=== PATIENT | female | born 1950 | race Caucasian/White ===

== ENCOUNTER 2023-05-17 12:12 | Outpatient (OUT) | payer MEDICARE, OTHER, SELFPAY ==
[2023-05-17 13:14] LABS: Anion Gap 16.3; BUN Creatinine Ratio 21.5; Calcium 9.5 mg/dL (8.5-10.1); Carbon Dioxide 27.3 mmol/L (21.0-32.0); Chloride 103 mmol/L (98-107); Estimated GFR (African America >60 (>=60); Estimated GFR (Non-African Ame 59 (>=60); Glucose 156 mg/dL (74-106); Potassium 4.6 mmol/L (3.5-5.1); Sodium 142 mmol/L (136-145)
== END 2023-05-17 12:13 | disposition home or self-care (01) ==
LOC: LAB 12:17
PROVIDERS: PCP Family Medicine
DX: I50.32 Chronic diastolic (congestive) heart failure (principal)
CPT/HCPCS: 36415; 80048

== ENCOUNTER 2023-12-20 09:52 | Outpatient (OUT) | payer MEDICARE, OTHER, SELFPAY ==
--- NOTE | 2023-12-20 10:48 | CA_ITS ---
Patient Name: TANIYA MCNEAL MR#: [id number] : 1950 Exam Date: 12/20/2023 Ordering Doctor: ZABRINA MESA ECHOCARDIOGRAM REPORT PROCEDURE: CA ECHO DOPPLER COMPLETE INDICATIONS: Edema bilateral lower extremities, dyspnea on exertion, hypertension, diabetes COMPARISON: None. DESCRIPTION: COMPLETE ECHOCARDIOGRAM Real-time transthoracic echocardiography with 2D, M-mode, spectral and color flow Doppler performed. QUALITY: Technical quality was good. 60 , 21-#. BSA 1.91 m2 LEFT VENTRICLE: Normal chamber size. Normal left ventricular wall thickness. LV EF: Global left ventricular systolic function is normal; visually estimated ejection fraction is 55 to 60%. No significant wall motion abnormalities. DIASTOLIC: Normal diastolic function. ATRIAL SEPTUM: Visually appears intact. LEFT ATRIUM: Normal chamber size. RIGHT ATRIUM: Normal chamber size. RIGHT VENTRICLE: Normal chamber size. Normal right ventricular systolic function. TRICUSPID VALVE: Normal mobility and thickness. No stenosis with trivial regurgitation. No evidence of pulmonary hypertension. RVSP 31 mmHg MITRAL VALVE: Normal mobility and thickness. No evidence of mitral valve stenosis. There is no mitral annular calcification. Trivial mitral regurgitation. AORTIC VALVE: Normal trileaflet appearance. No visible sclerosis. Normal leaflet mobility. No evidence of aortic valve stenosis. No aortic regurgitation. AORTIC ROOT: Normal diameter and appearance. PULMONIC VALVE: Normal thickness and mobility. No stenosis. Trivial regurgitation. PERICARDIUM: Anterior free space; trivial effusion versus fat pad. IVC: Collapses with inspirations. IVC is normal in size. CONCLUSION: 1. Global left ventricular systolic function is normal; visually estimated ejection fraction is 55 to 60% 2. Normal right ventricular size and systolic function 3. Normal diastolic function 4. The left atrium is normal size 5. No significant valvular abnormalities 6. Anterior free space; trivial effusion versus fat Adult Echocardiography Procedure Report Left Ventricle LVEDD (3.7 - 5.6 cm): 5.18 cm LVESD (2.2 - 4.0 cm): 3.39 cm LVIVS thickness (0.6 - 1.2 cm): 0.98 cm LVPW thickness (0.5 - 1.0 cm): 0.97 cm e': 0.09 m/s E - e': 9.19 LVOT Max Gradient: 2.79 mm[Hg] LVOT Area (cm2): 0.84 m/s Peak Velocity (LVOT): 0.84 m/s Mean Velocity (LVOT): 0.52 m/s LVOT Diameter 1.55 cm Left Atrium LA Volume Index (2D A2C): 32.99 ml/m2 Left Atrium Systolic Dimension: 4.29 cm Mitral Valve MV E to A Ratio: 1.05 Mitral Valve A-Wave Peak Velocity: 0.78 m/s Mitral Valve E-Wave Peak Velocity: 0.82 m/s Right Ventricle Aorta AO Root Diam: 2.39 cm Ascending Ao Diam: 2.95 cm Aortic Valve AoV Area (Peak Jeromy): 1.21 cm2, 1.21 cm2 AoV Area (VTI): 1.19 cm2, 1.19 cm2 Peak Velocity(Antegrade Flow): 1.30 m/s Peak Gradient(Antegrade Flow): 6.77 mm[Hg] Mean Velocity(Antegrade Flow): 0.85 m/s Mean Gradient(Antegrade Flow): 3.56 mm[Hg] Velocity Time Integral: 30.43 cm Tricuspid Valve Peak Velocity (Regurgitant Flow): 2.64 m/s Pulmonic Valve Mean Gradient: 3.22 mm[Hg] Mean Velocity: 0.84 m/s Peak Velocity: 1.28 m/s, 1.10 m/s Peak Gradient: 4.85 mm[Hg], 6.56 mm[Hg] Right Atrium Right Atrium Systolic Pressure: 46.71 ml, 46.71 ml Dictated by: Edel Negrete M.D. on 12/20/2023 at 11:54 Approved by: Edel Negrete M.D. on 12/20/2023 at 11:56
== END 2023-12-20 09:53 | disposition home or self-care (01) ==
LOC: CARD 09:53
PROVIDERS: PCP Family Medicine; Visit Provider Nurse Practitioner
DX: R60.0 Localized edema (principal); R06.09 Other forms of dyspnea
CPT/HCPCS: 93306

== ENCOUNTER 2023-12-30 08:57 | Outpatient (OUT) | payer MEDICARE, OTHER, SELFPAY ==
--- OUTSIDE RECORDS SUMMARY | 2023-12-30 09:20 | XMS_ITS | CCD ---
Author Name Unknown Address [address] [place] [address] Organization [facility] Care Team Providers Care Paper Tester Name Role Phone Furdesing, Wild G Unavailable Unavailable Lionel, Amish Unavailable Unavailable Furlong, DO Wild Primary Care Provider MD Bang Nunez Attending Provider Unavailable MD Mohan Mccartney Referring Provider Furlong, DO Wild Primary Care Provider MD Bang Nunez Attending Provider Unavailable MD Mhoan Mccartney Referring Provider Furlong, DO Wild Primary Care Provider MD Mohan Mccartney Referring Provider MD Rose Ohara Attending Provider [phone] ALGHOTHANI, MOHAMAD Admitting Unavailable ALGHOTHANI, MOHAMAD Consulting Unavailable ALGHOTHANI, MOHAMAD Attending Unavailable FURLONG, WILD G Primary Care Unavailable FURLONG, WILD G Attending Unavailable FURLONG, WILD G Admitting Unavailable FURLONG, WILD G Primary Care Unavailable FURLONG, WILD G Consulting Unavailable FURLONG, WILD G Attending Unavailable FURLONG, WILD G Admitting Unavailable FURLONG, WILD G Primary Care Unavailable FURLONG, WILD G Consulting Unavailable FURLONG, WILD G Attending Unavailable FURLONG, WILD G Admitting Unavailable FURLONG, WILD G Primary Care Unavailable FURLONG, WILD G Consulting Unavailable Furlong, DO Wild Primary Care Provider MD Mohan Mccartney Referring Provider MD Rose Ohara Attending Provider [phone] Furlong, DO Wild Primary Care Provider MD Mohan Mccartney Referring Provider MD Rose Ohara Attending Provider [phone] RONALDO, ALY E Referring Unavailable RONALDO, ALY E Admitting Unavailable RONALDO, ALY E Attending Unavailable VALENTINE PICKERING Consulting Unavailable FURLONG, WILD G Primary Care Unavailable Aly Higgins MD Attending Unavail able Furlong, DO Wild Primary Care Provider PARTH [facility] Attending Provider MD Mohan Mccartney Referring Provider MD Rose Ohara Attending Provider MD Mohan Mccartney Referring Provider [phone] MD Rose Ohara Attending Provider Unallocated, Noms Provider Primary Care Provider Furlong, Wild Primary Care Unavailable Mohan Mccartney Referring Unavailable Lev, Rose Attending Unavailable Lev, Rose Admitting Unavailable Furlong, Wild Primary Care Unavailable Bonita, Irma Attending Unavailable Bonita, Irma Admitting Unavailable Furlong DO, Wild G Primary Care Provider [phone] PERRY MANUEL Attending Unavailable BONITA, IRMA Attending Unavailable WITHERELLPERRY Attending Unavailable FURLONG, WILD G Attending Unavailable FURLONG, WILD G Referring Unavailable FURLONG, WILD G Primary Care Unavailable KELBLEY, IRMA Attending Unavailable RONALDO, ALY E Referring Unavailable KELBLEY, IRMA Attending Unavailable RONALDO, ALY E Referring Unavailable KELBLEY, IRMA Attending Unavailable RONALDO, ALY E Referring Unavailable KELBLEY, IRMA Attending Unavailable RONALDO, ALY E Referring Unavailable KELBLEY, IRMA Attending Unavailable RONALDO, ALY E Referring Unavailable KELBLEY, IRMA Attending Unavailable RONALDO, ALY E Referring Unavailable KELBLEY, IRMA Attending Unavailable RONALDO, ALY E Referring Unavailable KELBLEY, IRMA Attending Unavailable RONALDO, ALY E Referring Unavailable KELBLEY, IRMA Attending Unavailable RONALDO, ALY E Referring Unavailable KELBLEY, IRMA Attending Unavailable RONALDO, ALY E Referring Unavailable KELBLEY, IRMA Attending Unavailable RONALDO, ALY E Referring Unavailable KELBLEY, IRMA Attending Unavailable RONALDO, ALY E Referring Unavailable BLACKSTON, AMAN T Attending Unavailable RONALDO, ALY E Referring Unavailable BLACKSTON, AMAN T Attending Unavailable BRINKVIRGINIA Attending Unavailable RONALDO, ALY E Referring Unavailable BRINK, VIRGINIA Attending Unavailable RONALDO, ALY E Referring Unavailable KELBLEY, IRMA Attending Unavailable RONALDO, ALY E Referring Unavailable SHAN HASKINS Attending Unavailable KELBLEY, IRMA Attending Unavailable RONALDO, ALY E Referring Unavailable KELBLEY, IRMA Attending Unavailable RONALDO, ALY E Referring Unavailable Allergies Allergy Classification Reported Allergen(s) Allergy Type Date of Onset Reaction(s) Facility (1 source) No Alert Propensity to adverse reactions to drug 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 Medications Current Medications Medication Drug Class(es) Dates Sig (Normalized) Sig (Original) allopurinol 100 mg oral tablet (2 sources) Xanthine Oxidase Inhibitor Start: 12-23-2023 take 1 tablet by mouth in the morning allopurinoL (ZYLOPRIM) 100 mg tablet Take 1 tablet (100 mg total) by mouth in the morning. Start after flare up resolves. 30 tablet 2 12/23/2023 Active amLODIPine 5 mg oral tablet (10 sources) Dihydropyridine Calcium Channel Sophy Start: 12-26-2023 take 1 tablet by mouth once daily in the morning amLODIPine (NORVASC) 5 mg tablet take 1 tablet by mouth every morning 90 tablet 1 12/26/2023 Active Start: 04-11-2019 End: 12-26-2023 take 1 tablet by mouth once daily in the morning amLODIPine (NORVASC) 5 mg tablet take 1 tablet by mouth every morning 90 tablet 1 07/08/2023 12/26/2023 Discontinued aspirin 81 mg delayed release oral tablet (16 sources) Platelet Aggregation Inhibitor, Nonsteroidal Anti-inflammatory Drug Start: 10-01-2020 take 81 mg by mouth once daily Aspirin Active 81 MG PO Daily October 01, 2020 12:00am Start: 04-11-2019 End: 04-13-2019 take 81 mg by mouth once daily Aspirin Discontinued 81 MG PO Daily April 10, 2019 11:00pm April 13, 2019 12:11pm blood-glucose sensor (DEXCOM G7 SENSOR) device (2 sources) Start: 10-26-2023 blood-glucose sensor (DEXCOM G7 SENSOR) device Indications: 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 ([facility]-H[facility]) 1 Unit by miscellaneous route every 10 days. 3 each 5 10/26/2023 Active carvedilol 25 mg oral tablet (9 sources) alpha-Adrenergi c Sophy, beta-Adrenergic Sophy Start: 04-11-2019 take 1 tablet by mouth twice daily carvediloL (COREG) 25 mg tablet Indications: 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 (CMS-HCC) take 1 tablet by mouth twice a day 180 tablet 3 06/01/2023 Active colchicine 0.6 mg oral tablet (2 sources) Start: 12-23-2023 End: 12-27-2023 take 1 tablet by mouth in the morning, then take 1 tablet by mouth at bedtime colchicine (COLCRYS) 0.6 mg tablet Indications: Acute gout due to renal impairment involving toe of right foot Take 1 tablet (0.6 mg total) by mouth in the morning and 1 tablet (0.6 mg total) before bedtime. Do all this for 4 days. 8 tablet 0 12/23/2023 12/27/2023 Active furosemide 20 mg oral tablet (16 sources) Loop Diuretic Start: 12-16-2023 take 1 tablet by mouth once daily furosemide (LASIX) 20 mg tablet take 1 tablet by mouth once daily 0 12/16/2023 Active Start: 01-11-2022 take 1 tablet by montrell th once daily Furosemide (Lasix) 40 mg Tablet Active 40 MG PO Daily January 11, 2022 12:00am Start: 12-30-2021 End: 01-11-2022 take 1 tablet by mouth once daily Furosemide (Lasix) 20 mg Tablet Discontinued 20 MG PO Daily December 30, 2021 12:00am January 11, 2022 1:27pm 3 ml insulin aspart, human 100 unt/ml pen injector (2 sources) Insulin Analog Start: 07-13-2023 insulin aspart U-100 (NovoLOG FlexPen U-100 Insulin) 100 unit/mL (3 mL) insulin pen Inject 6 Units under the skin in the morning and 6 Units at noon and 6 Units in the evening. Inject with meals. 15 mL 1 07/13/2023 Active lisinopril 40 mg oral tablet (9 sources) Angiotensin Converting Enzyme Inhibitor Start: 04-11-2019 take 1 tablet by mouth once daily lisinopriL (PRINIVIL,ZESTRIL) 40 mg tablet take 1 tablet by mouth once daily 90 tablet 1 07/08/2023 Active magnesium oxide 400 mg oral tablet (2 sources) magnesium oxide 400 mg magnesium tablet Magnesium 0 Active metFORMIN hydrochloride 1000 mg oral tablet (9 sources) Biguanide Start: 04-11-2019 take 1 tablet by mouth twice daily at mealtime metFORMIN (GLUCOPHAGE) 1000 mg tablet take 1 tablet by mouth twice a day with food 180 tablet 3 07/18/2023 Active potassium chloride 20 meq extended release oral tablet (7 sources) Start: 04-11-2019 take 20 mEq by mouth once daily Potassium Chloride Active 20 MEQ PO Daily April 10, 2019 11:00pm rosuvastatin calcium 10 mg oral tablet (9 sources) HMG-CoA Reductase Inhibitor Start: 04-11-2019 take 1 tablet by mouth once daily rosuvastatin (CRESTOR) 10 mg tablet take 1 tablet by mouth once daily 90 tablet 1 08/30/2023 Active spironolactone 25 mg oral tablet (9 sources) Aldosterone Antagonist Start: 12-30-2021 take 1 tablet by mouth once daily in the morning spironolactone (ALDACTONE) 25 mg tablet take 1 tablet by mouth every morning 30 tablet 5 08/06/2023 Active Vit C-E-Zinc Rea-Ywcvod-Ymeisn ([facility]) 50 mg-15 unit- 4.5 mg-2.5 mg Tablet,Chewable (7 sources) Start: 04-11-2019 take 1 tablet by mouth once daily Vit C-E-Zinc Tbq-Ktethz-Uitjou ([facility]) 50 mg-15 unit- 4.5 mg-2.5 mg Tablet,Chewable Active 1 TAB PO Daily April 11, 2019 8:39am Start: 04-11-2019 take 1 tablet by montrell once daily Vit C-E-Zinc Out-Qsikkb-Kvdkjo ([facility]) 50 mg-15 unit- 4.5 mg-2.5 mg Tablet,Chewable Active 1 TAB PO Daily April 10, 2019 11:00pm Start: 04-11-2019 take 1 tablet by montrell th once daily Vit C-E-Zinc Lwb-Jfzqtt-Pvanrl ([facility]) 50 mg-15 unit- 4.5 mg-2.5 mg Tablet,Chewable Active 1 TAB PO Daily April 11, 2019 12:00am (1 source) Completed/Discontinued Medications Medication Drug Class(es) Dates Sig (Normalized) Sig (Original) alendronic acid 35 mg oral tablet (9 sources) Bisphosphonate Start: 04-11-20 End: 12-15-19 take 35 mg by mouth every week Alendronate Discontinued 35 MG PO every week April 10, 2019 11:00pm December 15, 2023 10:19am amoxicillin 500 mg oral capsule (7 sources) Penicillin-class Antibacterial Start: 04-11-20 End: 04-13-20 take 500 mg by mouth three times daily Amoxicillin Discontinued 500 MG PO Three times daily April 10, 2019 11:00pm April 13, 2019 10:01am baclofen 10 mg oral tablet (1 source) gamma-Aminobutyri c Acid-ergic Agonist Start: 04-15-20 23 End: 12-23-19 24 take 1 tablet by mouth three times daily as needed for muscle spasms baclofen (LIORESAL) 10 mg tablet Indications: Strain of left buttock, initial encounter Take 1 tablet (10 mg total) by mouth 3 (three) times a day as needed for muscle spasms. 60 tablet 0 04/15/2023 12/23/2023 Discontinued (Therapy completed) dapagliflozin 5 mg oral tablet (7 sources) Sodium-Glucose Cotransporter 2 Inhibitor Start: 03-31-20 22 End: 04-13-20 23 take 1 tablet by mouth once daily Dapagliflozin Propanediol (Farxiga) 5 mg Tablet Discontinued 5 MG PO Daily March 30, 2022 11:00pm April 13, 2023 8:17am 0.5 ml dulaglutide 3 mg/ml auto-injector (7 sources) GLP-1 Receptor Agonist Start: 04-11-20 End: 12-15-19 inject 0.75 mg by subcutaneous injection every week Dulaglutide Discontinued 0.75 MG SUBCUT every week April 10, 2019 11:00pm December 15, 2023 10:19am empagliflozin 25 mg oral tablet (7 sources) Sodium-Glucose Cotransporter 2 Inhibitor Start: 10-01-20 End: 03-31-20 take 1 tablet by mouth once daily Empagliflozin (Jardiance) 25 mg Tablet Discontinued 25 MG PO Daily October 01, 2020 12:00am March 31, 2022 12:23pm hydroCHLOROthiazide 25 mg oral tablet (7 sources) Thiazide Diuretic Start: 04-11-20 End: 04-13-20 take 25 mg by mouth once daily Hydrochlorothiazide Discontinued 25 MG PO Daily April 10, 2019 11:00pm April 13, 2023 8:18am 3 ml insulin detemir 100 unt/ml pen injector (7 sources) Insulin Analog Start: 04-11-20 End: 03-31-20 inject 70 [IU] by subcutaneous injection once daily at bedtime Insulin Detemir U-100 Discontinued 70 UNITS SUBCUT Daily at bedtime April 10, 2019 11:00pm March 31, 2022 12:23pm 3 ml insulin glargine 300 unt/ml pen injector (1 source) Insulin Analog Start: 04-15-20 End: 12-23-19 insulin glargine U-300 conc (TOUJEO MAX U-300 SOLOSTAR) 300 unit/mL (3 mL) insulin pen Inject 60 Units under the skin in the evening. 6 mL 2 04/15/2023 12/23/2023 Discontinued (Cost of medication) meloxicam 7.5 mg oral tablet (7 sources) Nonsteroidal Anti-inflammatory Drug Start: 03-23-20 End: 07-01-20 Meloxicam Discontinued 7.5 PO Daily March 22, 2021 11:00pm July 01, 2022 9:30am Problems Active Problems Problem Classification Problem Date Documented Date Episodic/Chronic Chronic kidney disease (1 source) Chronic kidney disease, stage 2 (mild); Translations: [CHRONIC KIDNEY DISEASE STAGE 2 MILD] Onset: 03-07-20 Chronic Chronic kidney disease (3 sources) Chronic kidney disease; Translations: [Hypertensive chronic kidney disease with stage 1 through stage 4 chronic kidney disease, or unspecified chronic kidney disease] Onset: 05-17-20 Complications of surgical procedures or medical care (2 sources) Dehiscence of surgical wound; Translations: [Disruption of external operation (surgical) wound, not elsewhere classified, initial encounter] Onset: 12-23-19 24 12-23-2023 Episodic Congestive heart failure; nonhypertensive (2 sources) Chronic diastolic (congestive) heart failure; Translations: [Chronic diastolic (congestive) heart failure] Onset: 08-29-20 Chronic Diabetes mellitus with complications (9 sources) Type 2 diabetes mellitus with diabetic chronic kidney disease; Translations: [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 3 due to type 2 diabetes mellitus] Onset: 08-26-20 Chronic Diabetes mellitus without complication (17 sources) Diabetes mellitus; Translations: [Type 2 diabetes mellitus without complications] Onset: 03-04-20 16 02-09-2021 Chronic Disorders of lipid metabolism (11 sources) Mixed hyperlipidemia; Translations: [Mixed hyperlipidemia] Onset: 12-25-19 Chronic Essential hypertension (5 sources) Essential (primary) hypertension; Translations: [Essential hypertension] Onset: 08-05-20 22 08-05-2022 Chronic Gout and other crystal arthropathies (2 sources) 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; Translations: [Gout due to renal impairment, right ankle and foot] Onset: 12-23-19 24 12-23-2023 Chronic Hypertension with complications and secondary hypertension (7 sources) Hypertensive chronic kidney disease with stage 1 through stage 4 chronic kidney disease, or unspecified chronic kidney disease; Translations: [Chronic kidney disease stage 2] Onset: 02-17-20 Resolved : 03-14-20 23 03-14-2023 Chronic Maintenance chemotherapy; radiotherapy (17 sources) Patient encounter status; Translations: [Encounter for antineoplastic immunotherapy] 02-09-2021 Chronic Melanomas of skin (19 sources) Malignant melanoma of upper arm; Translations: [Malignant melanoma] Onset: 08-21-20 20 02-09-2021 Chronic Osteoarthritis (9 sources) Osteoarthritis of left knee joint; Translations: [Unilateral primary osteoarthritis, left knee] Onset: 10-24-20 17 12-14-2023 Chronic Other and ill-defined heart disease (1 source) Heart disease, unspecified; Translations: [HEART DISEASE UNSPECIFIED] Onset: 05-04-20 Chronic Other circulatory disease (1 source) H/O: hypertension; Translations: [History of hypertension] Episodic Other connective tissue disease (1 source) Presence of left artificial knee joint; Translations: [Presence of left artificial knee joint] Onset: 10-03-20 Chronic Other connective tissue disease (2 sources) History of total knee arthroplasty; Translations: [Presence of left artificial knee joint] Onset: 10-03-20 23 12-23-2023 Chronic Other connective tissue disease (1 source) H/O: arthritis; Translations: [History of arthritis] Episodic Other connective tissue disease (1 source) H/O: gout; Translations: [History of gout] Episodic Other connective tissue disease (1 source) History of osteoporosis; Translations: [History of osteoporosis] Episodic Other endocrine disorders (7 sources) Pituitary gland enlarged; Translations: [Other disorders of pituitary gland] 03-23-2021 Chronic Other endocrine disorders (8 sources) Other disorders of pituitary gland; Translations: [Other disorders of the pituitary and other syndromes of diencephalohypophyseal origin] Chronic Other gastrointestinal disorders (2 sources) Irritable bowel syndrome; Translations: [Irritable bowel syndrome without diarrhea] Onset: 02-04-20 17 08-05-2022 Chronic Other liver diseases (2 sources) Fatty (change of) liver, not elsewhere classified; Translations: [Other chronic nonalcoholic liver disease] Onset: 02-17-20 22 08-05-2022 Chronic Other lower respiratory disease (2 sources) Other forms of dyspnea; Translations: [Other forms of dyspnea] Onset: 12-02-19 Episodic Other non-traumatic joint disorders (3 sources) Pain in left knee; Translations: [Pain in joint, lower leg] 12-14-2023 Episodic Other non-traumatic joint disorders (3 sources) Stiffness of left knee; Translations: [Stiffness of left knee, not elsewhere classified] 12-14-2023 Episodic Other nutritional; endocrine; and metabolic disorders (2 sources) Metabolic syndrome X; Translations: [Metabolic syndrome X] Onset: 08-05-20 22 08-05-2022 Chronic Other nutritional; endocrine; and metabolic disorders (2 sources) Morbid obesity; Translations: [Morbid (severe) obesity due to excess calories] Onset: 04-08-20 22 08-05-2022 Chronic Other nutritional; endocrine; and metabolic disorders (1 source) H/O: diabetes mellitus; Translations: [History of diabetes mellitus] Episodic Other nutritional; endocrine; and metabolic disorders (1 source) History of hypercholesterolemia; Translations: [History of hypercholesterolemia] Episodic Other screening for suspected conditions (not mental disorders or infectious disease) (1 source) No current problems or disability Onset: 12-16-19 Residual codes; unclassified (2 sources) Localized edema; Translations: [Localized edema] Onset: 12-02-19 Episodic Spondylosis; intervertebral disc disorders; other back problems (2 sources) Degeneration of thoracic intervertebral disc; Translations: [Other intervertebral disc degeneration, thoracic region] Onset: 02-04-20 17 08-05-2022 Chronic Unclassified (1 source) Malignant melanoma of right upper limb, including shoulder; Translations: [Malignant melanoma of right upper limb, including shoulder] Onset: 12-15-19 Unclassified (1 source) gout in big toe Onset: 12-23-19 Past or Other Problems Problem Classification Problem Date Documented Da te Episodic/Chronic Fluid and electrolyte disorders (4 sources) Hypokalemia; Translations: [Hypokalemia] Onset: 02-03-2017 Resolved: 03-14-2023 03-14-2023 Episodic Mood disorders (2 sources) Mood disorders Onset: 12-23-2023 12-23-2023 Other aftercare (1 source) 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; Translations: [GROUP HOME CURRENT USE OF INSULIN] Onset: 08-29-2022 Episodic Other and ill-defined heart disease (2 sources) Diastolic dysfunction; Translations: [Other ill-defined heart diseases] Onset: 12-02-2021 Resolved: 12-23-2023 12-23-2023 Chronic Other gastrointestinal disorders (4 sources) Diarrhea, unspecified; Translations: [DIARRHEA UNSPECIFIED] Onset: 08-11-2022 Episodic Other lower respiratory disease (4 sources) Dyspnea, unspecified; Translations: [DYSPNEA UNSPECIFIED] Onset: 04-29-2022 Episodic Other lower respiratory disease (2 sources) Dyspnea on exertion; Translations: [Other forms of dyspnea] Onset: 12-25-2021 Resolved: 12-23-2023 12-23-2023 Episodic Other non-traumatic joint disorders (2 sources) Pain in wrist; Translations: [Pain in unspecified wrist] Onset: 09-06-2022 Resolved: 04-15-2023 04-15-2023 Episodic Pancreatic disorders (not diabetes) (2 sources) Pancreatitis; Translations: [Acute pancreatitis without necrosis or infection, unspecified] Onset: 08-05-2022 Resolved: 09-06-2022 09-06-2022 Episodic Skull and face fractures (2 sources) Fracture of orbital floor; Translations: [Fracture of orbital floor, unspecified side, initial encounter for closed fracture] Onset: 04-03-2019 Resolved: 08-10-2022 08-10-2022 Episodic Results Test Name Value Interpretation Reference Range Facility 36on 12-22-2023 36 ELIZABETH Campos MA Please let her know her Echo looks very good- better than the one in 2021. Normal EF- LV function, no diastolic dysfunction, no significant valve issues. Very good. Regarding echo performed on 12/20/2023 Patient informed. She verbalized understanding. Normal [facility] Alanine aminotransferase [En zymatic activity/volume] in Serum or PlasmaOrdered By: Farhana Sotomayor on 12-13-2023 ALT [Catalytic activity/Vol] 12 U/L 7-52 [facility] Albumin [Mass/volume] in Ser um or Plasma by Bromocresol green (BCG) dye binding methoOrdered By: Farhana Sotomayor on 12-13-2023 Albumin BCG dye [Mass/Vol] 4.0 g/dL 3.5-5.7 [facility] Alkaline phosphatase [Enzyma tic activity/volume] in Serum or PlasmaOrdered By: Farhana Sotomayor on 12-13-2023 ALP [Catalytic activity/Vol] 55 U/L 34-104 [facility] Aspartate aminotransferase [ Enzymatic activity/volume] in Serum or PlasmaOrdered By: Farhana Sotomayor on 12-13-2023 AST [Catalytic activity/Vol] 11 U/L 13-39 [facility] B-Type Natriuretic Peptideon 12-13-2023 Natriuretic peptide B (Bld) [Mass/Vol] 70.0 pg/mL Normal 5-100 [facility] Comment on above: Order Comment: Kaylee ya order for this patient for CBC and CMP ordered under [facility]. please forward a copy of report to [facility] patient fasting 12 hrs Result Comment: PERF ORMED BY: [place] [address] PATHOLOGIST TENT WORKER SHEBA RICO M.D. Performed By: #### M G, BNP #### [address] Basophils Auto (Bld) [#/Vol] Ordered By: Farhana Sotomayor on 12-13-2023 Basophils (Bld) [#/Vol] 0.1 10*3/uL 0.0-0.2 [facility] Basophils/100 WBC Auto (Bld) Ordered By: Farhana Sotomayor on 12-13-2023 Basophils/100 WBC (Bld) 1.2 % . [facility] Bilirubin.total [Mass/volume ] in Serum or PlasmaOrdered By: Farhana Sotomayor on 12-13-2023 Bilirubin [Mass/Vol] 0.8 mg/dL 0.3-1.[address] [facility] [address] abdomen pelvis w conon CT abdomen pelvis w con [facility] [place] [address] CT Scan Report Signed Patient: Tosha Mcneal MR#: [id number] : 1950 Acct:[id number] Age/Sex: 73 / F ADM Date: 12/13/23 Loc: Room: Type: [facility] Attending Dr: Rose Ohara MD Copies to: MD Farhana Gutierrez, VINCE Ordering Provider: Farhana Sotomayor APRN Date of Service: 12/13/23 CT/CT abdomen pelvis w con: surveillance melanoma ([id number]) CT/CT chest w con: surveillance melanoma CT Chest, Abdomen and Pelvis with contrast TECHNIQUE: Axial imaging with 2-D reconstruction. 90 cc of Isovue-300The CT exam was performed using one or more the following dose reduction techniques: Automated exposure control, adjustment of the MA and/or Kv according to patient size, or use of the iterative reconstruction technique. History: Yearly assessment for melanoma. COMPARISON: 12/21/2022 THYROID: No significant thyroid abnormality identified. AIRWAY: Central airway is patent. ESOPHAGUS: Esophagus normal course and caliber. HEART: Heart is not enlarged. PERICARDIAL EFFUSION: Minimal CORONARY ARTERY CALCIFICATION: Extensive atherosclerosis MEDIASTINUM: Nonenlarged mediastinal lymph nodes identified. HILAR REGION: No hilar mass or adenopathy is seen. THORACIC AORTA: No thoracic aortic aneurysm or dissection. No atherosclerosis LUNG INTERSTITIUM: No infiltrate or congestion identified. Mild atelectasis/scarring. PLEURAL EFFUSION No pleural effusion identified. PNEUMOTHORAX: No pneumothorax seen. LUNG NODULE: No lung nodules identified. CHEST WALL: No chest wall abnormality seen. The bony chest intact. LIVER: No hepatic mass or intrahepatic biliary ductal dilatation is identified. Normal density of the liver parenchyma identified. GALLBLADDER: No gallbladder abnormalities identified. BILE DUCTS: No biliary duct dilatation identified. SPLEEN: Normal PANCREAS: Unremarkable ADRENAL GLANDS: The adrenal glands are unremarkable. KIDNEYS: Unremarkable ABDOMINAL AORTA: The abdominal aorta is normal. RETROPERITONEUM: No significant retroperitoneal abnormalities identified. STOMACH:Nondistended SMALL BOWEL: The small bowel loops are nondistended. Duodenal diverticulum redemonstrated. APPENDIX: The appendix is normal. COLON: There is no colitis or diverticulitis. Sigmoid diverticulosis. URINARY BLADDER: Urinary bladder is unremarkable. REPRODUCTIVE STRUCTURES: Similar partially calcified fibroid uterus. FREE AIR: None FREE FLUID: None ABDOMINAL WALL: The bony structures are unremarkable. No subcutaneous soft tissue abnormality identified. INGUINAL HERNIA: None BONES:A similar degenerative change. Mild scoliosis. CT/CT chest w con IMPRESSION: No evidence of metastatic disease of the chest, abdomen or pelvis. PRELIMINARY RESULTS: None given Impression dictated by: Omid Echevarria M.D.12/13/2023 2:39 PM Dictation Location: [place] [address] Transcribed By: [facility] 12/13/23 1439 Dictated By: Omid Echevarria DO 12/13/23 1430 Signed By: 12/13/23 1439 Normal [facility] Calcium [Mass/volume] in Ser um or PlasmaOrdered By: Farhana Sotomayor on 12-13-2023 Calcium [Mass/Vol] 9.3 mg/dL 8.6-10.3 [facility] Carbon dioxide, total [Moles /volume] in Serum or PlasmaOrdered By: Farhana Sotomayor on 12-13-2023 CO2 [Moles/Vol] 26.9 mmol/L 21.0-31.0 [facility] Chloride [Moles/volume] in S marlena or PlasmaOrdered By: Farhana Sotomayor on 12-13-2023 Chloride [Moles/Vol] 103 mmol/L 98-107 [facility] Complete Blood Count Auto Di ffon 12-13-2023 Basophils (Bld) [#/Vol] 0.1 10*3/uL Normal 0.0-0.2 [facility] Comment on above: Result Comment: PERF ORMED BY: [place] [address] PATHOLOGIST TENT WORKER SHEBA RICO M.D. Performed By: #### C BC #### [address] Basophils/100 WBC (Bld) 1.2 % Normal . [facility] Comment on above: Performed By: #### C BC #### [address] Eosinophils (Bld) [#/Vol] 0.2 10*3/uL Normal 0.0-0.45 [facility] Comment on above: Performed By: #### C BC #### [address] Eosinophils/100 WBC (Bld) 2.4 % Normal . [facility] Comment on above: Performed By: #### C BC #### [address] Erythrocyte distribution width (RBC) [Ratio] 16.0 % High 11.9-15.3 [facility] Comment on above: Performed By: #### C BC #### [address] Hematocrit (Bld) [Volume fraction] 35.5 % Normal 34.0-46.4 [facility] Comment on above: Performed By: #### C BC #### [address] Hemoglobin (Bld) [Mass/Vol] 11.5 g/dL Low 11.8-15.4 [facility] Comment on above: Performed By: #### C BC #### [facility] [address] [place] [address] [place] Lymphocytes (Bld) [#/Vol] 1.9 10*3/uL Normal 1.00-4.8 [facility] Comment on above: Performed By: #### C BC #### [facility] [address] Lymphocytes/100 WBC (Bld) 25.0 % Normal . [facility] Comment on above: Performed By: #### C BC #### [facility] [address] MCH (RBC) [Entitic mass] 28.3 pg Normal 24.7-34.3 [facility] Comment on above: Performed By: #### C BC #### [address] MCV (RBC) [Entitic vol] 87.2 fL Normal 80-100 [facility] Comment on above: Performed By: #### C BC #### [address] Mean Corpuscular HGB Conc 32.5 g/dL Normal 32.0-35.0 [facility] Comment on above: Performed By: #### C BC #### [address] Monocytes (Bld) [#/Vol] 0.6 10*3/uL Normal 0.0-0.8 [facility] Comment on above: Performed By: #### C BC #### [address] Monocytes/100 WBC (Bld) 8.3 % Normal . [facility] Comment on above: Performed By: #### C BC #### [address] Neutrophils (Bld) [#/Vol] 4.8 10*3/uL Normal 1.8-7.7 [facility] Comment on above: Performed By: #### C BC #### [address] Neutrophils/100 WBC (Bld) 63.1 % Normal . [facility] Comment on above: Performed By: #### C BC #### [facility] [address] NRBC% 0.0 /100{WBC} Normal 0-0.5 [facility] Comment on above: Performed By: #### C BC #### [address] Platelet mean volume (Bld) [Entitic vol] 7.5 fL Normal 6.3-10.7 [facility] Comment on above: Performed By: #### C BC #### [address] Platelets (Bld) [#/Vol] 220 10*3/uL Normal 150-450 [facility] Comment on above: Performed By: #### C BC #### [address] RBC (Bld) [#/Vol] 4.07 10*6/uL Normal 3.60-5.00 [facility] Comment on above: Performed By: #### C BC #### [address] WBC (Bld) [#/Vol] 7.6 10*3/uL Normal 3.8-11.6 [facility] Comment on above: Performed By: #### C BC #### [address] Comprehensive Metabolic Pane [place] 12-13-2023 Albumin [Mass/Vol] 4.0 g/dL Normal 3.5-5.7 [facility] Comment on above: Order Comment: stat for CT Bun/creat patient has a duplicate for CMP and cbc for Irma Mesa please send copy of report to her also. orders scanned in under Acct. [id number] Patient fasting since 0830 pm 0n 12/12/23 Performed By: #### C MP, LDH #### [address] [place] [address] [facility] Albumin/Globulin [Mass ratio] 1.5 {ratio} Normal [facility] Comment on above: Order Comment: stat for CT Bun/creat patient has a duplicate for CMP and cbc for Irma Blackburns please send copy of report to her also. orders scanned in under Acct. [id number] Patient fasting since 0830 pm 0n 12/12/23 Performed By: #### C MP, LDH #### [facility] [address] [place] [id number] [facility] ALP [Catalytic activity/Vol] 55 U/L Normal 34-104 [facility] Comment on above: Order Comment: stat for CT Bun/creat patient has a duplicate for CMP and cbc for Irma Blackburns please send copy of report to her also. orders scanned in under Acct. [id number] Patient fasting since 0830 pm 0n 12/12/23 Performed By: #### C MP, LDH #### [facility] [address] [place] [id number] [facility] ALT [Catalytic activity/Vol] 12 U/L Normal 7-52 [facility] Comment on above: Order Comment: stat for CT Bun/creat patient has a duplicate for CMP and cbc for Irma Blackburns please send copy of report to her also. orders scanned in under Acct. [id number] Patient fasting since 0830 pm 0n 12/12/23 Performed By: #### C MP, LDH #### [place] [id number] [facility] Anion gap [Moles/Vol] 14.4 mmol/L Normal 6.0-15.0 [facility] Comment on above: Order Comment: stat for CT Bun/creat patient has a duplicate for CMP and cbc for Irma Blackburns please send copy of report to her also. orders scanned in under Acct. [id number] Patient fasting since 0830 pm 0n 24 Performed By: #### C MP, LDH #### [facility] [address] [place] [address] [facility] AST [Catalytic activity/Vol] 11 U/L Low 13-39 [facility] Comment on above: Order Comment: stat for CT Bun/creat patient has a duplicate for CMP and cbc for Irma Bonita please send copy of report to her also. orders scanned in under Acct. [id number] Patient fasting since 0830 pm 0n 12/12/23 Performed By: #### C MP, LDH #### [facility] [address] [place] [address] [facility] Bilirubin [Mass/Vol] 0.8 mg/dL Normal 0.3-1.0 [facility] Comment on above: Order Comment: stat for CT Bun/creat patient has a duplicate for CMP and cbc for Irma Bonita please send copy of report to her also. orders scanned in under Acct. [id number] Patient fasting since 0830 pm 0n 12/12/23 Performed By: #### C MP, LDH #### [facility] [address] [place] [address] [place] Calcium [Mass/Vol] 9.3 mg/dL Normal 8.6-10.3 [facility] Comment on above: Order Comment: stat for CT Bun/creat patient has a duplicate for CMP and cbc for Irma Bonita please send copy of report to her also. orders scanned in under Acct. [id number] Patient fasting since 0830 pm 0n 12/12/23 Performed By: #### C MP, LDH #### [facility] [address] [place] [address] [place] Chloride [Moles/Vol] 103 mmol/L Normal 98-107 [facility] Comment on above: Order Comment: stat for CT Bun/creat patient has a duplicate for CMP and cbc for Irma Bonita please send copy of report to her also. orders scanned in under Acct. [id number] Patient fasting since 0830 pm 0n 12/12/23 Performed By: #### C MP, LDH #### [facility] [address] [place] [address] [place] CO2 [Moles/Vol] 26.9 mmol/L Normal 21.0-31.0 [facility] Comment on above: Order Comment: stat for CT Bun/creat patient has a duplicate for CMP and cbc for Irma Bonita please send copy of report to her also. orders scanned in under Acct. [id number] Patient fasting since 0830 pm 0n 12/12/23 Performed By: #### C MP, LDH #### [facility] [address] [place] [id number] [facility] Creatinine [Mass/Vol] 1.05 mg/dL Normal 0.60-1.20 [facility] Comment on above: Order Comment: stat for CT Bun/creat patient has a duplicate for CMP and cbc for Irma Blackburns please send copy of report to her also. orders scanned in under Acct. [id number] Patient fasting since 0830 pm 0n 12/12/23 Performed By: #### C MP, LDH #### [facility] [address] [place] [address] Creatinine Clr Calc Pharmacy 51.93 [facility] Comment on above: Order Comment: stat for CT Bun/creat patient has a duplicate for CMP and cbc for Irma Blackburns please send copy of report to her also. orders scanned in under Acct. [id number] Patient fasting since 0830 pm 0n 12/12/23 Performed By: #### C MP, LDH #### [facility] [address] [place] [id number] [facility] GFR/1.73 sq M.predicted MDRD (S/P/Bld) [Vol rate/Area] 55.755 mL/min/{1.73_m2} [facility] Comment on above: Order Comment: stat for CT Bun/creat patient has a duplicate for CMP and cbc for Irma Blackburns please send copy of report to her also. orders scanned in under Acct. [id number] Patient fasting since 0830 pm 0n 12/12/23 Performed By: #### C MP, LDH #### [facility] [address] [place] [id number] [facility] Globulin (S) [Mass/Vol] 2.7 g/dL [facility] Comment on above: Order Comment: stat for CT Bun/creat patient has a duplicate for CMP and cbc for Irma Blackburns please send copy of report to her also. orders scanned in under Acct. [id number] Patient fasting since 0830 pm 0n 12/12/23 Performed By: #### C MP, LDH #### [facility] [address] [place] [phone] [facility] Glucose [Mass/Vol] 135 mg/dL High 70-100 [facility] Comment on above: Order Comment: stat for CT Bun/creat patient has a duplicate for CMP and cbc for Irma Bonita please send copy of report to her also. orders scanned in under Acct. [id number] Patient fasting since 0830 pm 0n 12/12/23 Result Comment: [place] Glucose Reference Range is dependent on time and content of last meal. Glucose of more than 200 mg/dL in a nonstressed, ambulatory subject supports the diagnosis of Diabetes Mellitus. ADA recommended reference range Performed By: #### C MP, LDH #### [facility] [address] [place] [phone] [place] Potassium [Moles/Vol] 5.3 mmol/L High 3.5-5.1 [facility] Comment on above: Order Comment: stat for CT Bun/creat patient has a duplicate for CMP and cbc for Irma Bonita please send copy of report to her also. orders scanned in under Acct. [id number] Patient fasting since 0830 pm 0n 12/12/23 Performed By: #### C MP, LDH #### [facility] [address] [place] [id number] [facility] Protein [Mass/Vol] 6.7 g/dL Normal 6.4-8.9 [facility] Comment on above: Order Comment: stat for CT Bun/creat patient has a duplicate for CMP and cbc for Irma Bonita please send copy of report to her also. orders scanned in under Acct. [id number] Patient fasting since 0830 pm 0n 12/12/23 Performed By: #### C MP, LDH #### [facility] [address] [place] [phone] [place] Sodium [Moles/Vol] 139 mmol/L Normal 136-145 [facility] Comment on above: Order Comment: stat for CT Bun/creat patient has a duplicate for CMP and cbc for Irma Bonita please send copy of report to her also. orders scanned in under Acct. [id number] Patient fasting since 0830 pm 0n 12/12/23 Performed By: #### C MP, LDH #### [facility] [address] [place] [phone] [place] Urea nitrogen [Mass/Vol] 27 mg/dL High 7-25 [facility] Comment on above: Order Comment: stat for CT Bun/creat patient has a duplicate for CMP and cbc for Irma Mesa please send copy of report to her also. orders scanned in under Acct. [id number] Patient fasting since 0830 pm 0n 12/12/23 Performed By: #### C MP, LDH #### [facility] [address] [place] [id number] [facility] Creatinine [Mass/volume] in Serum or PlasmaOrdered By: Farhana Sotomayor on 12-13-2023 Creatinine [Mass/Vol] 1.05 mg/dL 0.60-1.20 [facility] Eosinophils Auto (Bld) [#/Vo l]Ordered By: Farhana Sotomayor on 12-13-2023 Eosinophils (Bld) [#/Vol] 0.2 10*3/uL 0.0-0.45 [facility] Eosinophils/100 WBC Auto (Bl d)Ordered By: Farhana Sotomayor on 12-13-2023 Eosinophils/100 WBC (Bld) 2.4 % . [facility] Erythrocyte distribution wid th Auto (RBC) [Ratio]Ordered By: Farhana Sotomayor on 12-13-2023 Erythrocyte distribution width (RBC) [Ratio] 16.0 % 11.9-15.3 [facility] Globulin Calc (S) [Mass/Vol] Ordered By: Farhana Sotomayor on 12-13-2023 Globulin (S) [Mass/Vol] 2.7 g/dL [facility] Glucose [Mass/volume] in Ser um or PlasmaOrdered By: Farhana Sotomayor on 12-13-2023 Glucose [Mass/Vol] 135 mg/dL 70-100 [facility] Comment on above: ADA recommended refe rence rangeRandom Glucose Reference Range is dependent on time and content of last meal. Glucose of more than 200 mg/dL in a nonstressed, ambulatory subject supports the diagnosis of Diabetes Mellitus. Hematocrit Auto (Bld) [Volum e fraction]Ordered By: Farhana Sotomayor on 12-13-2023 Hematocrit (Bld) [Volume fraction] 35.5 % 34.0-46.4 [facility] Hemoglobin [Mass/volume] in BloodOrdered By: Farhana Sotomayor on 12-13-2023 Hemoglobin (Bld) [Mass/Vol] 11.5 g/dL 11.8-15.4 [facility] LDH Lactate Dehydrogenaseon 12-13-2023 LDH Lactate Dehydrogenase 118 U/L Low 140-271 [facility] Comment on above: Order Comment: stat for CT Bun/creat patient has a duplicate for CMP and cbc for Irma Mesa please send copy of report to her also. orders scanned in under Acct. [id number] Patient fasting since 0830 pm 0n 12/12/23 Result Comment: PERF ORMED BY: [facility] [address] [place] [address] PATHOLOGIST TENT WORKER SHEBA RICO M.D. Performed By: #### C MP, LDH ####[facility] [address] [place] [address] [facility] Lactate dehydrogenase [Enzym atic activity/volume] in Serum or Plasma by Lactate to pyOrdered By: Farhana Sotomayor on 12-13-2023 LDH Lactate to pyruvate reaction [Catalytic activity/Vol] 118 U/L 140-271 [facility] Leukocytes [#/volume] correc jin for nucleated erythrocytes in Blood by Automated counOrdered By: Farhana Sotomayor on 12-13-2023 WBC corrected for nucl RBC Auto (Bld) [#/Vol] 7.6 10*3/uL 3.8-11.6 [facility] Lymphocytes Auto (Bld) [#/Vo l]Ordered By: Farhana Sotomayor on 12-13-2023 Lymphocytes (Bld) [#/Vol] 1.9 10*3/uL 1.00-4.8 [facility] Lymphocytes/100 WBC Auto (Bl d)Ordered By: Farhana Sotomayor on 12-13-2023 Lymphocytes/100 WBC (Bld) 25.0 % . [facility] MCH Auto (RBC) [Entitic mass ]Ordered By: Farhana Sotomayor on 12-13-2023 MCH (RBC) [Entitic mass] 28.3 pg 24.7-34.3 [facility] MCHC Auto (RBC) [Mass/Vol]Or dered By: Farhana Sotomayor on 12-13-2023 MCHC (RBC) [Mass/Vol] 32.5 g/dL 32.0-35.0 [facility] MCV Auto (RBC) [Entitic vol] Ordered By: Farhana Sotomayor on 12-13-2023 MCV (RBC) [Entitic vol] 87.2 fL 80-100 [facility] Magnesiumon 12-13-2023 Magnesium [Mass/Vol] 1.5 mg/dL Low 1.9-2.7 [facility] Comment on above: Order Comment: Kaylee ya order for this patient for CBC and CMP ordered under [facility] Acct. please forward a copy of report to Irma Mesa N.P. patient fasting 12 hrs Result Comment: PERF ORMED BY: [place] [address] PATHOLOGIST TENT WORKER SHEBA RICO M.D. Performed By: #### M G, BNP #### [address] Magnesium [Mass/volume] in S marlena or PlasmaOrdered By: Irma Mesa on 12-13-2023 Magnesium [Mass/Vol] 1.5 mg/dL 1.9-2.7 [facility] Monocytes Auto (Bld) [#/Vol] Ordered By: Farhana Sotomayor on 12-13-2023 Monocytes (Bld) [#/Vol] 0.6 10*3/uL 0.0-0.8 [facility] Monocytes/100 WBC Auto (Bld) Ordered By: Farhana Sotomayor on 12-13-2023 Monocytes/100 WBC (Bld) 8.3 % . [facility] Natriuretic peptide B [Mass/ Vol]Ordered By: Irma Mesa on 12-13-2023 Natriuretic peptide B (Bld) [Mass/Vol] 70.0 pg/mL 5-100 [facility] Neutrophils Auto (Bld) [#/Vo l]Ordered By: Farhana Sotomayor on 12-13-2023 Neutrophils (Bld) [#/Vol] 4.8 10*3/uL 1.8-7.7 [facility] Neutrophils/100 WBC Auto (Bl d)Ordered By: Farhana Sotomayor on 12-13-2023 Neutrophils/100 WBC (Bld) 63.1 % . [facility] No Panel InformationOrdered By: Farhana Sotomayor on 12-13-2023 Estimated GFR (CKD-EPI) 55.755 mL/Min [facility] Creatinine Clearance (Chem 51.93 [facility] Nucleated erythrocytes [Pres ence] in Blood by Automated countOrdered By: Farhana Sotomayor on 12-13-2023 Nucleated RBC Auto Ql (Bld) 0.0 /100{WBC} 0-0.5 [facility] Platelet mean volume Auto (B ld) [Entitic vol]Ordered By: Farhana Sotomayor on 12-13-2023 Platelet mean volume (Bld) [Entitic vol] 7.5 fL 6.3-10.7 [facility] Platelets Auto (Bld) [#/Vol] Ordered By: Farhana Sotomayor on 12-13-2023 Platelets (Bld) [#/Vol] 220 10*3/uL 150-450 [facility] Potassium [Moles/volume] in Serum or PlasmaOrdered By: Farhana Sotomayor on 12-13-2023 Potassium [Moles/Vol] 5.3 mmol/L 3.5-5.1 [facility] Protein [Mass/volume] in Ser um or PlasmaOrdered By: Farhana Sotomayor on 12-13-2023 Protein [Mass/Vol] 6.7 g/dL 6.4-8.9 [facility] RBC Auto (Bld) [#/Vol]Ordere d By: Farhana Sotomayor on 12-13-2023 RBC (Bld) [#/Vol] 4.07 10*6/uL 3.60-5.00 [facility] Serum or plasma albumin/glob ulin mass ratioOrdered By: Farhana Sotomayor on 12-13-2023 Albumin/Globulin [Mass ratio] 1.5 {ratio} [facility] Serum or plasma anion gap de terminationOrdered By: Farhana Sotomayor on 12-13-2023 Anion gap [Moles/Vol] 14.4 mmol/L 6.0-15.0 [facility] Sodium [Moles/volume] in Ser um or PlasmaOrdered By: Farhana Sotomayor on 12-13-2023 Sodium [Moles/Vol] 139 mmol/L 136-145 [facility] US extremity nonvascularon 0 12-13-2023 US extremity nonvascular [facility] [place] [address] Ultrasound Report Signed Patient: Tosha Mcneal MR#: [id number] : 1950 Acct:[id number] Age/Sex: 73 / F ADM Date: 12/13/23 Loc: XT Room: Type: [facility] RCR Attending Dr: Rose Ohara MD Ordering Provider: Farhana Sotomayor APRN Date of Service: 12/13/23 US/US extremity nonvascular: surveillance melanoma Copies to: MD Farhana Gutierrez APRN US extremity nonvascular 12/13/2023 9:05 AM SIGNS AND SYMPTOMS: surveillance melanoma, Right Axilla ALSO FOR LAB AND CT PROTOCOL: Grayscale and color Doppler sonographic images of the right axilla were obtained. COMPARISON: 12/13/2023 CT and ultrasound 08/09/2023 FINDINGS: Multiple reniform hypoechoic and centrally echogenic lymph nodes are redemonstrated. These have subjectively normal cortical morphology with the largest measuring 1.0 x 1.3 x 0.8 cm in greatest dimension. There is no evidence of mass. US/US extremity nonvascular IMPRESSION: Multiple reniform hypoechoic and centrally echogenic lymph nodes are redemonstrated. These are consistent with lymph nodes and are similar to that seen on the prior exam. These have subjectively normal cortical morphology with the largest measuring 1.0 x 1.3 x 0.8 cm in greatest dimension. Impression dictated by: Francesco Boggs M.D.12/13/2023 2:06 PM Dictation Location: [place] [address] Tech: Miri Jaramillo Transcribed By: SRUTHI 12/13/23 140 Dictated By: Francesco Boggs II, MD 12/13/23 1402 Signed By: 12/13/23 140 Normal [facility] Urea nitrogen [Mass/volume] in Serum or PlasmaOrdered By: Farhana Sotomayor on 12-13-2023 Urea nitrogen [Mass/Vol] 27 mg/dL 7 [facility] WBC Auto (Bld) [#/Vol]Ordere d By: Farhana Sotomayor on 12-13-2023 WBC (Bld) [#/Vol] 7.6 10*3/uL 3.8-11.6 [facility] 37on 12-02-2023 37 Stop Amlodipine/Norv asc- this is for Blood pressure Have labs drawn to check kidney function Hold lisinopril for b/p 100/50 or less, lightheadedness/ dizziness or weakness Add a second lasix to daily regime (either 2 tabs at a time or 2 times in the day for next 2-3 days) *Continue heart healthy diet and low sodium diet. *Monitor daily weights, fluid restriction 1.5-2Liters/day, lab work to check kidney/renal function and electrolytes *Call office for weight gain of 2 pounds in 1 day or 5 pounds in 1 week, increased leg swelling, shortness of breath or shortness of breath at night and having to sleep sitting up taller/more pillows than normal or in recliner. Normal [facility] Office Visiton 12-02-2023 Follow-up visit [id number] Renee Mcneal 1950 F Date Provider Department Center 12/02/2023 [facility] Family History Problem Relation Age of Onset Coronary artery disease Father Heart attack Father Family Status - Relation Status Age at Father Level of Service:62049 DC OFFICE/OUTPATIENT ESTABLISHED MOD MDM 30 MIN Normal [facility] Operative Reporton 4 Operative Report Indication for Surge ry Wound dehiscence left total knee Preoperative Diagnosis Wound dehiscence left total knee Postoperative Diagnosis Wound dehiscence left total knee Operation Debridement Lower Extremity, INCISION AND DRAINAGE LEFT KNEE, SECONDARY CLOSURE OF WOUND DEHISENCE, PREVENNA PLACMENT, Left, Knee Surgeon(s) Ronaldo JUAREZ, Aly Guzman (Surgeon - Primary) Electrical Instrument Technician Miguel HART, Dee Dee Hays (Medicare Nurse) Anesthesia General Mile JUAREZ, Hank Richard (4Th Grade Math Teacher) Emmanuelle SHIPMAN, Joleen Maldonado (Provider) Estimated Blood Loss 10 cc Urine Output no minor Findings as above Specimen(s) none Complications none Technique Patient was brought into the operative room placed in supine position on the operating table. General anesthetic was administered. Patient received Ancef. Left lower extremity was then prepped with ChloraPrep followed by Betadine solution paint. Patient had a wound dehiscence involving the left total knee replacement. This was 9 cm in length. And went through the skin and subcu layer. The deep fascia was exposed but the knee joint proper was not entered. The hematoma had been evacuated. Any loose sutures were removed. And then the wound was irrigated out with normal saline solution with 80 mg of gentamicin and a 1 L bag. It was then irrigated out with Vashe. After this vancomycin powder was sprinkled in the wound and the wound was closed with 3-0 nylon mattress sutures. Good reapproximation of the wound was obtained. A Prevena wound dressing was applied. General anesthetic was discontinued. Patient was transferred to recovery in stable condition. Will be discharged home with Olive and Keflex 500 mg p.o. 3 times daily x 7 days. Return the office in 1 week for wound check. Tourniquet Time NA Sponge/Needle Count correct Fluid Count as per chart Catheters, Drains, Tubes Prevena Electronically signed by Aly Higgins MD 11/09/23 17:29 EST Normal [facility] POC Glucose Randomon 024 Glucose [Mass/Vol] 118 mg/dL High 70-99 [facility] Comment on above: Performed By: #### C [id number] #### [facility] [address] [place] [address] Glucose [Mass/Vol] 137 mg/dL High 70-99 [facility] Comment on above: Performed By: #### C [id number] #### [address] [address] Glucose [Mass/Vol] 138 mg/dL High 70-99 [facility] Comment on above: Performed By: #### C [id number] #### [address] [address] Hgb/Hcton 10-04-2023 Hematocrit (Bld) [Volume fraction] 35.2 % Low 36.3-47.1 [facility] Comment on above: Performed By: #### H H #### [address] [place] [address] Rat Culturist: Alexey Rob MD Hemoglobin (Bld) [Mass/Vol] 11.5 g/dL Low 11.9-15.1 [facility] Comment on above: Performed By: #### H H #### [address] [place] [address] Rat Culturist: Alexey Rob MD OPERATIVE REPORTon 3 OPERATIVE REPORT [address] [address] OPERATIVE REPORT PATIENT NAME: TOSHA MCNEAL : 1950 MED REC NO: [id number] ROOM: 0331 ACCOUNT NO: [id number] ADMIT DATE: 10/03/2023 PROVIDER: Aly Higgins DATE OF PROCEDURE: 10/03/2023 PREOPERATIVE DIAGNOSIS: Degenerative arthritis, left knee. POSTOPERATIVE DIAGNOSIS: Degenerative arthritis, left knee. PROCEDURE PERFORMED: Left total knee replacement using a Eliud Persona knee, size 7 narrow cemented femoral component, size E stemmed tibial plateau with a stem extension, an 11-mm MC poly, and a 32-mm patellar dome. SURGEON: Dr. Aly Higgins. ANESTHESIA: Spinal. DESCRIPTION OF PROCEDURE: The patient was brought into the operating room and placed in supine position on the operating table. Spinal anesthetic was administered. The patient's left lower extremity was prepped with Chloraprep and draped in a sterile fashion. A 10-cm medial parapatellar quad-sparing incision was made. This was taken down through the skin and subcutaneous tissue. Arthrotomy was made along the medial border of the patellar tendon through the medial retinaculum and medial quad snip was made at the superior pole of the patella. Fat pad was then excised. Central drill hole was placed down the femoral canal and distal femoral cut was set at 5 degrees of valgus. Femoral tower was marked for 3 degrees of external rotation. A size 7 four-in-one cutting block was then used. Surface of tibia was then osteotomized with the tibial jig. Remnants of menisci were removed. Soft tissues were balanced. Posterior capsule was injected with 20 mL of the total joint compound. The undersurface of patella was then osteotomized. It was elected to go with a 32-mm patellar dome. [place] holes were placed. Knee was then cleansed with Simpulse with gentamicin in the irrigation solution. A trial reduction was then carried out. Knee was noted to be well balanced in both in flexion and extension with the 11-mm MC poly. The knee was then cleansed with Simpulse with gentamicin in the irrigation solution and dried. Methyl methacrylate was prepared. The tibial component was then cemented into place using a stem extension for a size E tibial plateau. The femur was then replaced with the second batch of cement followed by the patellar dome. All excess cement was removed. Knee was again cleansed with Simpulse. An 11-mm MC poly was inserted. Knee was well balanced both in flexion and extension. The skin margins and deep fascial structures were injected with remainder of the total joint compound. Deep facial layer was then closed with #1 Vicryl [id number] sutures over two Hemovac drains. Vancomycin powder had been sprinkled into the wound. Remainder of the vancomycin was sprinkled to the subcutaneous layer. This was closed with 2-0 Vicryl followed by a 3-0 Monocryl subcuticular stitch. Estimated blood loss 200 mL. Wound was dressed with Steri-Strips, fluffs, ABD, Kerlix roll, and an ENEDINA wrap from toe to groin. No tourniquet had been used during the surgical procedure. The patient was transferred to Recovery in a stable condition. ALY HIGGINS PH/[id number]_T Doc#: [id number] CC: Normal [facility] MRSA, DNA, Nasalon 3 MRSA, DNA, Nasal Negative Normal [facility] Comment on above: Result Comment: NEGA TIVE: MRSA DNA not detected by nucleic acid amplification. Results should be used as an adjunct to nosocomial control efforts to identify patients needing enhanced precautions. The test is not intended to identify patients with staphylococcal infections. Results should not be used to guide or monitor treatment for MRSA infections. Performed By: #### M RSANO #### [facility] [address] [place], [place] [id number] Rat Culturist: Jose Miguel Davis MD [facility] [address] [place] [address] [place] [address] Rat Culturist: Alexey Rob MD Basic Metabolic Profon 09-08 Anion gap [Moles/Vol] 12 mmol/L Normal 9-17 [facility] Comment on above: Performed By: #### B SHANTE, CDP #### [facility] [address] [place] [address] Rat Culturist: Alexey Rob MD BUN/CRE Ratio 35 High 9-20 [facility] Comment on above: Performed By: #### B MP, CDP #### [facility] [address] [place] [address] Rat Culturist: Alexey Rob MD Calcium [Mass/Vol] 9.9 mg/dL Normal 8.6-10.4 [facility] Comment on above: Performed By: #### B SHANTE, CDP #### [facility] [address] [place], [place] [id number] Rat Culturist: Alexey Rob MD Chloride [Moles/Vol] 99 mmol/L Normal 98-107 [facility] Comment on above: Performed By: #### B MP, CDP #### [facility] [address] [place], [place] [id number] Rat Culturist: Alexey Rob MD CO2 [Moles/Vol] 27 mmol/L Normal 20-31 [facility] Comment on above: Performed By: #### B SHANTE, CDP #### [facility] [address] [place], [place] [id number] Rat Culturist: Alexey Rob MD Creatinine [Mass/Vol] 1.0 mg/dL High 0.5-0.9 [facility] Comment on above: Performed By: #### B SHANTE, CDP #### [facility] [address] [place] [address] Rat Culturist: Alexey Rob MD GFR/1.73 sq M.predicted among non-blacks MDRD (S/P/Bld) [Vol rate/Area] 59 mL/min/{1.73_m2} Low >60 [facility] Comment on above: Result Comment: These results are not intended for use in patients <18 years of age. eGFR results are calculated without a race factor using the 2020 CKD-EPI equation. Careful clinical correlation is recommended, particularly when comparing to results calculated using previous equations. The CKD-EPI equation is less accurate in patients with extremes of muscle mass, extra-renal metabolism of creatine, excessive creatine ingestion, or following therapy that affects renal tubular secretion. Performed By: #### B SHANTE, CDP #### [facility] [address] [place] [address] Rat Culturist: Alexey Rob MD Glucose [Mass/Vol] 126 mg/dL High 70-99 [facility] Comment on above: Performed By: #### B SHANTE, CDP #### [facility] [address] [place], [place] [id number] Rat Culturist: Alexey Rob MD Potassium [Moles/Vol] 4.9 mmol/L Normal 3.7-5.3 [facility] Comment on above: Performed By: #### B SHANTE, CDP #### [facility] [address] [place], [place] [id number] Rat Culturist: Alexey Rob MD Sodium [Moles/Vol] 138 mmol/L Normal 135-144 [facility] Comment on above: Performed By: #### B SHANTE, CDP #### [facility] [address] [place] [address] Dr. [place], [place] [id number] Rat Culturist: Alexey Rob MD Urea nitrogen [Mass/Vol] 35 mg/dL High 8-23 [facility] Comment on above: Performed By: #### B SHANTE, CDP #### [facility] [address] [place] [address] Dr. [place], [place] 1800583 Rat Culturist: Alexey Rob MD CBC with Diffon 09-08-2023 Abs. Basophil 0.07 k/uL Normal 0.00-0.20 [facility] Comment on above: Performed By: #### B SHANTE, CDP #### [address] [place], [place] 4555683 Rat Culturist: Alexey Rob MD Abs.Imm.Granulocyte 0.04 k/uL Normal 0.00-0.30 [facility] Comment on above: Performed By: #### B SHANTE, CDP #### [facility] [address] [place] [address] Dr. [place], [place] [id number] Rat Culturist: Alexey Rob MD Abs.Neutrophil (Seg) 5.10 k/uL Normal 1.50-8.10 [facility] Comment on above: Performed By: #### B SHANTE, CDP #### [facility] [address] [place] [address] Dr. [place], [place] [id number] Rat Culturist: Alexey Rob MD Basophils/100 WBC (Bld) 1 % Normal 0-2 [facility] Comment on above: Performed By: #### B SHANTE, CDP #### [facility] [address] [place] [address] Dr. [place], [place] 4695783 Rat Culturist: Alexey Rob MD Eosinophils (Bld) [#/Vol] 0.13 10*3/uL Normal 0.00-0.44 [facility] Comment on above: Performed By: #### B SHANTE, CDP #### [facility] [address] [place] [address] Dr. [place], [place] 5612683 Rat Culturist: Alexey Rob MD Eosinophils/100 WBC (Bld) 2 % Normal 1-4 [facility] Comment on above: Performed By: #### B SHANTE, CDP #### [address] [place], [place] 5307983 Rat Culturist: Alexey Rob MD Erythrocyte distribution width (RBC) [Ratio] 13.6 % Normal 11.8-14.4 [facility] Comment on above: Performed By: #### B SHANTE, CDP #### [address] [place], [place] [id number] Rat Culturist: Alexey Rob MD Hematocrit (Bld) [Volume fraction] 44.2 % Normal 36.3-47.1 [facility] Comment on above: Performed By: #### B SHANTE, CDP #### [address] [place], [place] 5623583 Rat Culturist: Alexey Rob MD Hemoglobin (Bld) [Mass/Vol] 14.1 g/dL Normal 11.9-15.1 [facility] Comment on above: Performed By: #### B SHANTE, CDP #### [address] [place], [place] 0615383 Rat Culturist: Alexey Rob MD Immature granulocytes/100 WBC (Bld) 1 % High 0 [facility] Comment on above: Performed By: #### B MP, CDP #### [address] [place] [address] Rat Culturist: Alexey Rob MD Lymphocytes (Bld) [#/Vol] 1.87 10*3/uL Normal 1.10-3.70 [facility] Comment on above: Performed By: #### B MP, CDP #### [address] [place] [address] Rat Culturist: Alexey Rob MD Lymphocytes/100 WBC (Bld) 24 % Normal 24-43 [facility] Comment on above: Performed By: #### B MP, CDP #### [address] [place], [facility] Rat Culturist: Alexey Rob MD MCH (RBC) [Entitic mass] 29.5 pg Normal 25.2-33.5 [facility] Comment on above: Performed By: #### B MP, CDP #### [address] [place], [facility] Rat Culturist: Alexey Rob MD MCHC (RBC) [Mass/Vol] 31.9 g/dL Normal 28.4-34.8 [facility] Comment on above: Performed By: #### B SHANTE, CDP #### [address] [place], [facility] Rat Culturist: Alexey Rob MD MCV (RBC) [Entitic vol] 92.5 fL Normal 82.6-102.9 [facility] Comment on above: Performed By: #### B SHANTE, CDP #### [address] [place] [address] Rat Culturist: Alexey Rob MD Monocytes (Bld) [#/Vol] 0.75 10*3/uL Normal 0.10-1.20 [facility] Comment on above: Performed By: #### B MP, CDP #### [facility] [address] [place], [place] 057[address]83 Rat Culturist: Alexey Rob MD Monocytes/100 WBC (Bld) 9 % Normal 3-12 [facility] Comment on above: Performed By: #### B MP, CDP #### [facility] [address] [place], [place] 6886183 Rat Culturist: Alexey Rob MD Neutrophil (Seg) 63 % Normal 36-65 [facility] Comment on above: Performed By: #### B MP, CDP #### [facility] [address] [place], [place] 5908483 Rat Culturist: Alexey Rob MD NRBC Automated 0.0 per 100 WBC Normal 0.0 [facility] Comment on above: Performed By: #### B MP, CDP #### [address] [place], [place] [phone] Rat Culturist: Alexey Rob MD Platelet mean volume (Bld) [Entitic vol] 9.6 fL Normal 8.1-13.5 [facility] Comment on above: Performed By: #### B MP, CDP #### [address] [place], [place] 3723483 Rat Culturist: Alexey Rob MD Platelets (Bld) [#/Vol] 205 10*3/uL Normal 138-453 [facility] Comment on above: Performed By: #### B MP, CDP #### [facility] [address] [place] [address] Dr. [place], [place] 3587783 Rat Culturist: Alexey Rob MD RBC (Bld) [#/Vol] 4.78 10*6/uL Normal 3.95-5.11 [facility] Comment on above: Performed By: #### B MP, CDP #### [facility] [address] [place] [address] Rat Culturist: Alexey Rob MD WBC (Bld) [#/Vol] 8.0 10*3/uL Normal 3.5-11.3 [facility] Comment on above: Performed By: #### B MP, CDP #### [facility] [address] [place] [address] Rat Culturist: Alexey Rob MD MRSA, DNA, Nasalon Specimen Description .NASAL SWAB Normal [facility] Comment on above: Performed By: #### M RSANO #### [facility] [address] [place], [place] 556[address] Rat Culturist: Jose Miguel Davis MD [facility] [address] [place] [address] [place] [address] Rat Culturist: Alexey Rob MD Type + Screenon 09-08-2023 Type + Screen Sample Expiration 10/06/2023,2359 Arm Band Number [id number] ABO/Rh(D) A POSITIVE Antibody Screen NEGATIVE Normal [facility] Comment on above: Performed By: #### T YS #### [facility] [address] [place] [address] Rat Culturist: Alexey Rob MD Office Visiton 08-29-2023 Follow-up visit [id number] ColleenReneee Ilan 1950 F Date Provider Department Center 08/29/2023 [id number] MANUEL CARD [facility] Family History Problem Relation Age of Onset Coronary artery disease Father Heart attack Father Family Status - Relation Status Age at Father Level of Service:41863 DC OFFICE/OUTPATIENT ESTABLISHED MOD MDM 30-39 MIN Normal [facility] Alanine aminotransferase [En zymatic activity/volume] in Serum or PlasmaOrdered By: Rose Ohara on 08-09-2023 ALT [Catalytic activity/Vol] 13 U/L 7-52 [facility] Albumin [Mass/volume] in Ser um or Plasma by Bromocresol green (BCG) dye binding methoOrdered By: Rose Ohara on 08-09-2023 Albumin BCG dye [Mass/Vol] 4.5 g/dL 3.5-5.7 [facility] Alkaline phosphatase [Enzyma tic activity/volume] in Serum or PlasmaOrdered By: Rose Ohara on 08-09-2023 ALP [Catalytic activity/Vol] 48 U/L 34-104 [facility] Aspartate aminotransferase [ Enzymatic activity/volume] in Serum or PlasmaOrdered By: Rose Ohara on 08-09-2023 AST [Catalytic activity/Vol] 11 U/L 13-39 [facility] Basophils Auto (Bld) [#/Vol] Ordered By: Rose Ohara on 08-09-2023 Basophils (Bld) [#/Vol] 0.1 10*3/uL 0.0-0.2 [facility] Basophils/100 WBC Auto (Bld) Ordered By: Rose Ohara on 08-09-2023 Basophils/100 WBC (Bld) 1.3 % . [facility] Bilirubin.total [Mass/volume ] in Serum or PlasmaOrdered By: Rose Ohara on 08-09-2023 Bilirubin [Mass/Vol] 1.1 mg/dL 0.3-1.0 [facility] Calcium [Mass/volume] in Ser um or PlasmaOrdered By: Rose Ohara on 08-09-2023 Calcium [Mass/Vol] 9.8 mg/dL 8.6-10.3 [facility] Carbon dioxide, total [Moles /volume] in Serum or PlasmaOrdered By: Rose Ohara on 08-09-2023 CO2 [Moles/Vol] 27.9 mmol/L 21.0-31.0 [facility] Chloride [Moles/volume] in S marlena or PlasmaOrdered By: Rose Ohara on 08-09-2023 Chloride [Moles/Vol] 104 mmol/L 98-107 [facility] Complete Blood Count Auto Di ffon 08-09-2023 Basophils (Bld) [#/Vol] 0.1 10*3/uL Normal 0.0-0.2 [facility] Comment on above: Result Comment: PERF ORMED BY: [facility] [address] [place] [address] PATHOLOGIST TENT WORKER SHEBA RICO M.D. Performed By: #### C BC, CMP, LDH ####[place] [address] [place] [id number] [facility] Basophils/100 WBC (Bld) 1.3 % Normal . [facility] Comment on above: Performed By: #### C BC, CMP, LDH ####[place] [id number] [facility] Eosinophils (Bld) [#/Vol] 0.1 10*3/uL Normal 0.0-0.45 [facility] Comment on above: Performed By: #### C BC, CMP, LDH ####[place] [id number] [facility] Eosinophils/100 WBC (Bld) 1.9 % Normal . [facility] Comment on above: Performed By: #### C BC, CMP, LDH ####[address] Erythrocyte distribution width (RBC) [Ratio] 14.5 % Normal 11.9-15.3 [facility] Comment on above: Performed By: #### C BC, CMP, LDH ####[place] [id number] [facility] Hematocrit (Bld) [Volume fraction] 41.7 % Normal 34.0-46.4 [facility] Comment on above: Performed By: #### C BC, CMP, LDH ####[place] [id number] [facility] Hemoglobin (Bld) [Mass/Vol] 13.6 g/dL Normal 11.8-15.4 [facility] Comment on above: Performed By: #### C BC, CMP, LDH ####[place] [id number] [facility] Lymphocytes (Bld) [#/Vol] 1.6 10*3/uL Normal 1.00-4.8 [facility] Comment on above: Performed By: #### C BC, CMP, LDH ####[place] [id number] [facility] Lymphocytes/100 WBC (Bld) 23.9 % Normal . [facility] Comment on above: Performed By: #### C BC, CMP, LDH ####[address] MCH (RBC) [Entitic mass] 29.6 pg Normal 24.7-34.3 [facility] Comment on above: Performed By: #### C BC, CMP, LDH ####[address] MCV (RBC) [Entitic vol] 90.7 fL Normal 80-100 [facility] Comment on above: Performed By: #### C BC, CMP, LDH ####[address] Mean Corpuscular HGB Conc 32.6 g/dL Normal 32.0-35.0 [facility] Comment on above: Performed By: #### C BC, CMP, LDH ####[address] Monocytes (Bld) [#/Vol] 0.6 10*3/uL Normal 0.0-0.8 [facility] Comment on above: Performed By: #### C BC, CMP, LDH ####[address] Monocytes/100 WBC (Bld) 9.2 % Normal . [facility] Comment on above: Performed By: #### C BC, CMP, LDH ####[address] Neutrophils (Bld) [#/Vol] 4.1 10*3/uL Normal 1.8-7.7 [facility] Comment on above: Performed By: #### C BC, CMP, LDH ####[address] Neutrophils/100 WBC (Bld) 63.7 % Normal . [facility] Comment on above: Performed By: #### C BC, CMP, LDH ####[address] NRBC% 0.1 /100{WBC} Normal 0-0.5 [facility] Comment on above: Performed By: #### C BC, CMP, LDH ####[place] [id number] [facility] Platelet mean volume (Bld) [Entitic vol] 7.8 fL Normal 6.3-10.7 [facility] Comment on above: Performed By: #### C BC, CMP, LDH ####[place] [id number] [facility] Platelets (Bld) [#/Vol] 200 10*3/uL Normal 150-450 [facility] Comment on above: Performed By: #### C BC, CMP, LDH ####[place] [id number] [facility] RBC (Bld) [#/Vol] 4.59 10*6/uL Normal 3.60-5.00 [facility] Comment on above: Performed By: #### C BC, CMP, LDH ####[place] [id number] [facility] WBC (Bld) [#/Vol] 6.5 10*3/uL Normal 3.8-11.6 [facility] Comment on above: Performed By: #### C BC, CMP, LDH ####[place] [id number] [facility] Comprehensive Metabolic Pane [place] 08-09-2023 Albumin [Mass/Vol] 4.5 g/dL Normal 3.5-5.7 [facility] Comment on above: Order Comment: pt is a fasting Performed By: #### C BC, CMP, LDH ####[place] [id number] [facility] Albumin/Globulin [Mass ratio] 1.8 {ratio} Normal [facility] Comment on above: Order Comment: pt is a fasting Performed By: #### C BC, CMP, LDH ####[place] [id number] [facility] ALP [Catalytic activity/Vol] 48 U/L Normal 34-104 [facility] Comment on above: Order Comment: pt is a fasting Performed By: #### C BC, CMP, LDH ####[place] [address] [place] [address] [facility] ALT [Catalytic activity/Vol] 13 U/L Normal 7-52 [facility] Comment on above: Order Comment: pt is a fasting Performed By: #### C BC, CMP, LDH ####[address] [address] [facility] Anion gap [Moles/Vol] 13.2 mmol/L Normal 6.0-15.0 [facility] Comment on above: Order Comment: pt is a fasting Performed By: #### C BC, CMP, LDH ####[address] [address] [facility] AST [Catalytic activity/Vol] 11 U/L Low 13-39 [facility] Comment on above: Order Comment: pt is a fasting Performed By: #### C BC, CMP, LDH ####[address] [address] [facility] Bilirubin [Mass/Vol] 1.1 mg/dL High 0.3-1.0 [facility] Comment on above: Order Comment: pt is a fasting Performed By: #### C BC, CMP, LDH ####[address] [address] [facility] Calcium [Mass/Vol] 9.8 mg/dL Normal 8.6-10.3 [facility] Comment on above: Order Comment: pt is a fasting Performed By: #### C BC, CMP, LDH ####[address] [address] [facility] Chloride [Moles/Vol] 104 mmol/L Normal 98-107 [facility] Comment on above: Order Comment: pt is a fasting Performed By: #### C BC, CMP, LDH ####[address] [address] [facility] CO2 [Moles/Vol] 27.9 mmol/L Normal 21.0-31.0 [facility] Comment on above: Order Comment: pt is a fasting Performed By: #### C BC, CMP, LDH ####[id number] [place] [address] [facility] Creatinine [Mass/Vol] 0.86 mg/dL Normal 0.60-1.20 [facility] Comment on above: Order Comment: pt is a fasting Performed By: #### C BC, CMP, LDH ####[place] [address] [place] [address] [facility] Creatinine Clr Calc Pharmacy 64.19 [facility] Comment on above: Order Comment: pt is a fasting Performed By: #### C BC, CMP, LDH ####[address] [address] [facility] GFR/1.73 sq M.predicted MDRD (S/P/Bld) [Vol rate/Area] mL/min/{1.73_m2} [facility] Comment on above: Order Comment: pt is a fasting Performed By: #### C BC, CMP, LDH ####[place] [id number] [facility] Globulin (S) [Mass/Vol] 2.5 g/dL [facility] Center Comment on above: Order Comment: pt is a fasting Performed By: #### C BC, CMP, LDH ####[place] [id number] [facility] Glucose [Mass/Vol] 168 mg/dL High 70-100 [facility] Comment on above: Order Comment: pt is a fasting Result Comment: [place] Glucose Reference Range is dependent on time and content of last meal. Glucose of more than 200 mg/dL in a nonstressed, ambulatory subject supports the diagnosis of Diabetes Mellitus. ADA recommended reference range Performed By: #### C BC, CMP, LDH ####[place] [id number] [facility] Potassium [Moles/Vol] 5.1 mmol/L Normal 3.5-5.1 [facility] Comment on above: Order Comment: pt is a fasting Performed By: #### C BC, CMP, LDH ####[place] [id number] [place] Protein [Mass/Vol] 7.0 g/dL Normal 6.4-8.9 [facility] Comment on above: Order Comment: pt is a fasting Performed By: #### C BC, CMP, LDH ####[facility] [address] [place] [address] [facility] Sodium [Moles/Vol] 140 mmol/L Normal 136-145 [facility] Comment on above: Order Comment: pt is a fasting Performed By: #### C BC, CMP, LDH ####[facility] [place] [address] [facility] Urea nitrogen [Mass/Vol] 26 mg/dL High 7-25 [facility] Comment on above: Order Comment: pt is a fasting Performed By: #### C BC, CMP, LDH ####[facility] [place] [id number] [facility] Creatinine [Mass/volume] in Serum or PlasmaOrdered By: Rose Ohara on 08-09-2023 Creatinine [Mass/Vol] 0.86 mg/dL 0.60-1.20 [facility] Eosinophils Auto (Bld) [#/Vo l]Ordered By: Rose Ohara on 08-09-2023 Eosinophils (Bld) [#/Vol] 0.1 10*3/uL 0.0-0.45 [facility] Eosinophils/100 WBC Auto (Bl d)Ordered By: Rose Ohara on 08-09-2023 Eosinophils/100 WBC (Bld) 1.9 % . [facility] Erythrocyte distribution wid th Auto (RBC) [Ratio]Ordered By: Rose Ohara on 08-09-2023 Erythrocyte distribution width (RBC) [Ratio] 14.5 % 11.9-15.3 [facility] Globulin Calc (S) [Mass/Vol] Ordered By: Rose Ohara on 08-09-2023 Globulin (S) [Mass/Vol] 2.5 g/dL [facility] Glucose [Mass/volume] in Ser um or PlasmaOrdered By: Rose Ohara on 08-09-2023 Glucose [Mass/Vol] 168 mg/dL 70-100 [facility] Comment on above: ADA recommended refe rence rangeRandom Glucose Reference Range is dependent on time and content of last meal. Glucose of more than 200 mg/dL in a nonstressed, ambulatory subject supports the diagnosis of Diabetes Mellitus. Hematocrit Auto (Bld) [Volum e fraction]Ordered By: Rose Ohara on 08-09-2023 Hematocrit (Bld) [Volume fraction] 41.7 % 34.0-46.4 [facility] Hemoglobin [Mass/volume] in BloodOrdered By: Rose Ohara on 08-09-2023 Hemoglobin (Bld) [Mass/Vol] 13.6 g/dL 11.8-15.4 [facility] LDH Lactate Dehydrogenaseon 08-09-2023 LDH Lactate Dehydrogenase 135 U/L Low 140-271 [facility] Comment on above: Order Comment: pt is a fasting Result Comment: PERF ORMED BY: [facility] [address] [place] [id number] PATHOLOGIST TENT WORKER SHEBA RICO M.D. Performed By: #### C BC, CMP, LDH ####[facility] [id number] [place] [id number] [facility] Lactate dehydrogenase [Enzym atic activity/volume] in Serum or Plasma by Lactate to pyOrdered By: Rose Ohara on 08-09-2023 LDH Lactate to pyruvate reaction [Catalytic activity/Vol] 135 U/L 140-271 [facility] Leukocytes [#/volume] correc jin for nucleated erythrocytes in Blood by Automated counOrdered By: oRse Ohara on 08-09-2023 WBC corrected for nucl RBC Auto (Bld) [#/Vol] 6.5 10*3/uL 3.8-11.6 [facility] Lymphocytes Auto (Bld) [#/Vo l]Ordered By: Rose Ohara on 08-09-2023 Lymphocytes (Bld) [#/Vol] 1.6 10*3/uL 1.00-4.8 [facility] Lymphocytes/100 WBC Auto (Bl d)Ordered By: Rose Ohara on 08-09-2023 Lymphocytes/100 WBC (Bld) 23.9 % . [facility] MCH Auto (RBC) [Entitic mass ]Ordered By: Rose Ohara on 08-09-2023 MCH (RBC) [Entitic mass] 29.6 pg 24.7-34.3 [facility] MCHC Auto (RBC) [Mass/Vol]Or dered By: Rose Ohara on 08-09-2023 MCHC (RBC) [Mass/Vol] 32.6 g/dL 32.0-35.0 [facility] MCV Auto (RBC) [Entitic vol] Ordered By: Rose Ohara on 08-09-2023 MCV (RBC) [Entitic vol] 90.7 fL 80-100 [facility] Monocytes Auto (Bld) [#/Vol] Ordered By: Rose Ohara on 08-09-2023 Monocytes (Bld) [#/Vol] 0.6 10*3/uL 0.0-0.8 [facility] Monocytes/100 WBC Auto (Bld) Ordered By: Rose Ohara on 08-09-2023 Monocytes/100 WBC (Bld) 9.2 % . [facility] Neutrophils Auto (Bld) [#/Vo l]Ordered By: Rose Ohara on 08-09-2023 Neutrophils (Bld) [#/Vol] 4.1 10*3/uL 1.8-7.7 [facility] Neutrophils/100 WBC Auto (Bl d)Ordered By: Rose Ohara on 08-09-2023 Neutrophils/100 WBC (Bld) 63.7 % . [facility] No Panel InformationOrdered By: Rose Ohara on 08-09-2023 Estimated GFR (CKD-EPI) > 60.0 mL/Min [facility] Creatinine Clearance (Chem 64.19 [facility] Nucleated erythrocytes [Pres ence] in Blood by Automated countOrdered By: Rose Ohara on 08-09-2023 Nucleated RBC Auto Ql (Bld) 0.1 /100{WBC} 0-0.5 [facility] Platelet mean volume Auto (B ld) [Entitic vol]Ordered By: Rose Ohara on 08-09-2023 Platelet mean volume (Bld) [Entitic vol] 7.8 fL 6.3-10.7 [facility] Platelets Auto (Bld) [#/Vol] Ordered By: Rose Ohara on 08-09-2023 Platelets (Bld) [#/Vol] 200 10*3/uL 150-450 [facility] Potassium [Moles/volume] in Serum or PlasmaOrdered By: Rose Ohara on 08-09-2023 Potassium [Moles/Vol] 5.1 mmol/L 3.5-5.1 [facility] Protein [Mass/volume] in Ser um or PlasmaOrdered By: Roes Ohara on 08-09-2023 Protein [Mass/Vol] 7.0 g/dL 6.4-8.9 [facility] RBC Auto (Bld) [#/Vol]Ordere d By: Rose Ohara on 08-09-2023 RBC (Bld) [#/Vol] 4.59 10*6/uL 3.60-5.00 [facility] Serum or plasma albumin/glob ulin mass ratioOrdered By: Rose Ohara on 08-09-2023 Albumin/Globulin [Mass ratio] 1.8 {ratio} [facility] Serum or plasma anion gap de terminationOrdered By: Rose Ohara on 08-09-2023 Anion gap [Moles/Vol] 13.2 mmol/L 6.0-15.0 [facility] Sodium [Moles/volume] in Ser um or PlasmaOrdered By: Rose Ohara on 08-09-2023 Sodium [Moles/Vol] 140 mmol/L 136-145 [facility] US extremity nonvascularon 1 [place] [address] Ultrasound Report Signed Patient: Tosha Mcneal MR#: [id number] : 1950 Acct:[id number] Age/Sex: 72 / F ADM Date: 08/09/23 Loc: Room: Type: [facility] Attending Dr: Rose Ohara MD Ordering Provider: Rose Ohara MD Date of Service: 08/09/23 US/US extremity nonvascular: surveillance melanoma Copies to: Rose Ohara MD LIMITED ULTRASOUND - right axilla CLINICAL DATA: Follow-up in patient with history of melanoma. COMPARISON: 04/07/2023 Real-time ultrasound evaluation of the right axilla was performed. There is a hypoechoic reniform nodule within thin cortex and echogenic hilus measuring 12 x 5 x 6 mm. This is similar There is an additional slightly larger lymph node with fatty hilus measuring 14 x 6 x 12 mm. These measurements are smaller than the prior. No new pathologic adenopathy is noted. US/US extremity nonvascular IMPRESSION: AXILLARY LYMPH NODES WITH BENIGN CONFIGURATION, DESCRIBED. Impression dictated by: Jenni Sands M.D.08/09/2023 1:36 PM Dictation Location: [place] [address] Tech: Miri Pastrana Transcribed By: [facility] 08/09/23 133 Dictated By: Jenni Sands MD 08/09/231332 Signed By: 08/09/231335 Normal [facility] Urea nitrogen [Mass/volume] in Serum or PlasmaOrdered By: Rose Ohara on 08-09-2023 Urea nitrogen [Mass/Vol] 26 mg/dL 05-31 [facility] WBC Auto (Bld) [#/Vol]Ordere d By: Rose Ohara on 08-09-2023 WBC (Bld) [#/Vol] 6.5 10*3/uL 3.8-11.6 [facility] Office Visiton 05-17-2023 Follow-up visit [id number] Renee Mcneal 1950 F Date Provider Department Center 05/17/2023 [id number] MANUEL CARD [facility] Family History Problem Relation Age of Onset Coronary artery disease Father Heart attack Father Family Status - Relation Status Age at Father Level of Service:16267 DC OFFICE/OUTPATIENT ESTABLISHED MOD MDM 30-39 MIN Normal [facility] Alanine aminotransferase [En zymatic activity/volume] in Serum or PlasmaOrdered By: Rose Ohara on 04-12-2023 ALT [Catalytic activity/Vol] 17 U/L 7 [facility] Albumin [Mass/volume] in Ser um or Plasma by Bromocresol green (BCG) dye binding methoOrdered By: Rose Ohara on 04-12-2023 Albumin BCG dye [Mass/Vol] 4.1 g/dL 3.5-5.7 [facility] Alkaline phosphatase [Enzyma tic activity/volume] in Serum or PlasmaOrdered By: Rose Ohara on 04-12-2023 ALP [Catalytic activity/Vol] 57 U/L 34-104 [facility] Aspartate aminotransferase [ Enzymatic activity/volume] in Serum or PlasmaOrdered By: Rose Ohara on 04-12-2023 AST [Catalytic activity/Vol] 16 U/L 13-39 [facility] Basophils Auto (Bld) [#/Vol] Ordered By: Rose Ohara on 04-12-2023 Basophils (Bld) [#/Vol] 0.1 10*3/uL 0.0-0.2 [facility] Basophils/100 WBC Auto (Bld) Ordered By: Rose Ohara on 04-12-2023 Basophils/100 WBC (Bld) 0.9 % . [facility] Bilirubin.total [Mass/volume ] in Serum or PlasmaOrdered By: Rose Ohara on 04-12-2023 Bilirubin [Mass/Vol] 0.9 mg/dL 0.3-1.0 [facility] Calcium [Mass/volume] in Ser um or PlasmaOrdered By: Rose Ohara on 04-12-2023 Calcium [Mass/Vol] 9.1 mg/dL 8.6-10.3 [facility] Carbon dioxide, total [Moles /volume] in Serum or PlasmaOrdered By: Rsoe Ohara on 04-12-2023 CO2 [Moles/Vol] 27.2 mmol/L 21.0-31.0 [facility] Chloride [Moles/volume] in S marlena or PlasmaOrdered By: Rose Ohara on 04-12-2023 Chloride [Moles/Vol] 102 mmol/L 98-107 [facility] Complete Blood Count Auto Di ffon 04-12-2023 Basophils (Bld) [#/Vol] 0.1 10*3/uL Normal 0.0-0.2 [facility] Comment on above: Result Comment: PERF ORMED BY: [place] [address] PATHOLOGIST TENT WORKER SHEBA RICO M.D. Performed By: #### C BC, LDH, CMP #### [address] Basophils/100 WBC (Bld) 0.9 % Normal . [facility] Comment on above: Performed By: #### C BC, LDH, CMP #### [address] Eosinophils (Bld) [#/Vol] 0.2 10*3/uL Normal 0.0-0.45 [facility] Comment on above: Performed By: #### C BC, LDH, CMP #### [address] Eosinophils/100 WBC (Bld) 2.2 % Normal . [facility] Comment on above: Performed By: #### C BC, LDH, CMP #### [address] Erythrocyte distribution width (RBC) [Ratio] 14.7 % Normal 11.9-15.3 [facility] Comment on above: Performed By: #### C BC, LDH, CMP #### [address] Hematocrit (Bld) [Volume fraction] 41.4 % Normal 34.0-46.4 [facility] Comment on above: Performed By: #### C BC, LDH, CMP #### [address] Hemoglobin (Bld) [Mass/Vol] 13.5 g/dL Normal 11.8-15.4 [facility] Comment on above: Performed By: #### C BC, LDH, CMP #### [address] Lymphocytes (Bld) [#/Vol] 1.8 10*3/uL Normal 1.00-4.8 [facility] Comment on above: Performed By: #### C BC, LDH, CMP #### [address] Lymphocytes/100 WBC (Bld) 26.0 % Normal . [facility] Comment on above: Performed By: #### C BC, LDH, CMP #### [address] MCH (RBC) [Entitic mass] 29.3 pg Normal 24.7-34.3 [facility] Comment on above: Performed By: #### C BC, LDH, CMP #### [address] MCV (RBC) [Entitic vol] 89.4 fL Normal 80-100 [facility] Comment on above: Performed By: #### C BC, LDH, CMP #### [address] Mean Corpuscular HGB Conc 32.7 g/dL Normal 32.0-35.0 [facility] Comment on above: Performed By: #### C BC, LDH, CMP #### [address] Monocytes (Bld) [#/Vol] 0.6 10*3/uL Normal 0.0-0.8 [facility] Comment on above: Performed By: #### C BC, LDH, CMP #### [address] Monocytes/100 WBC (Bld) 8.6 % Normal . [facility] Comment on above: Performed By: #### C BC, LDH, CMP #### [address] Neutrophils (Bld) [#/Vol] 4.3 10*3/uL Normal 1.8-7.7 [facility] Comment on above: Performed By: #### C BC, LDH, CMP #### [address] Neutrophils/100 WBC (Bld) 62.3 % Normal . [facility] Comment on above: Performed By: #### C BC, LDH, CMP #### [address] NRBC% 0.1 /100{WBC} Normal 0-0.5 [facility] Comment on above: Performed By: #### C BC, LDH, CMP #### [address] Platelet mean volume (Bld) [Entitic vol] 8.3 fL Normal 6.3-10.7 [facility] Comment on above: Performed By: #### C BC, LDH, CMP #### [facility] [address] Platelets (Bld) [#/Vol] 197 10*3/uL Normal 150-450 [facility] Comment on above: Performed By: #### C BC, LDH, CMP #### [address] RBC (Bld) [#/Vol] 4.62 10*6/uL Normal 3.60-5.00 [facility] Comment on above: Performed By: #### C BC, LDH, CMP #### [address] WBC (Bld) [#/Vol] 6.9 10*3/uL Normal 3.8-11.6 [facility] Comment on above: Performed By: #### C BC, LDH, CMP #### [address] Comprehensive Metabolic Pane [place] 04-12-2023 Albumin [Mass/Vol] 4.1 g/dL Normal 3.5-5.7 [facility] Comment on above: Performed By: #### C BC, LDH, CMP #### [address] Albumin/Globulin [Mass ratio] 1.6 {ratio} Normal [facility] Comment on above: Performed By: #### C BC, LDH, CMP #### [address] ALP [Catalytic activity/Vol] 57 U/L Normal 34-104 [facility] Comment on above: Performed By: #### C BC, LDH, CMP #### [address] ALT [Catalytic activity/Vol] 17 U/L Normal 7-52 [facility] Comment on above: Performed By: #### C BC, LDH, CMP #### [facility] [address] [place] [address] [place] Anion gap [Moles/Vol] 15.6 mmol/L High 6.0-15.0 [facility] Comment on above: Performed By: #### C BC, LDH, CMP #### [facility] [address] [place] [address] [place] AST [Catalytic activity/Vol] 16 U/L Normal 13-39 [facility] Comment on above: Performed By: #### C BC, LDH, CMP #### [facility] [address] [place] [address] [place] Bilirubin [Mass/Vol] 0.9 mg/dL Normal 0.3-1.0 [facility] Comment on above: Performed By: #### C BC, LDH, CMP #### [facility] [address] Calcium [Mass/Vol] 9.1 mg/dL Normal 8.6-10.3 [facility] Comment on above: Performed By: #### C BC, LDH, CMP #### [facility] [address] [place] [address] [place] Chloride [Moles/Vol] 102 mmol/L Normal 98-107 [facility] Comment on above: Performed By: #### C BC, LDH, CMP #### [facility] [address] [place] [address] [place] CO2 [Moles/Vol] 27.2 mmol/L Normal 21.0-31.0 [facility] Comment on above: Performed By: #### C BC, LDH, CMP #### [facility] [address] [place] [address] [place] Creatinine [Mass/Vol] 1.01 mg/dL Normal 0.60-1.20 [facility] Comment on above: Performed By: #### C BC, LDH, CMP #### [facility] [address] [place] [address] [place] Creatinine Clr Calc Pharmacy 54.77 Normal [facility] Comment on above: Performed By: #### C BC, LDH, CMP #### [facility] [address] [place] [address] [place] GFR/1.73 sq M.predicted MDRD (S/P/Bld) [Vol rate/Area] 58.780 mL/min/{1.73_m2} [facility] Comment on above: Performed By: #### C BC, LDH, CMP #### [facility] [address] [place] [address] [place] Globulin (S) [Mass/Vol] 2.6 g/dL [facility] Comment on above: Performed By: #### C BC, LDH, CMP #### [address] Glucose [Mass/Vol] 203 mg/dL High 70-100 [facility] Comment on above: Result Comment: [facility] Glucose Reference Range is dependent on time and content of last meal. Glucose of more than 200 mg/dL in a nonstressed, ambulatory subject supports the diagnosis of Diabetes Mellitus. ADA recommended reference range Performed By: #### C BC, LDH, CMP #### [address] Potassium [Moles/Vol] 4.8 mmol/L Normal 3.5-5.1 [facility] Comment on above: Performed By: #### C BC, LDH, CMP #### [address] Protein [Mass/Vol] 6.7 g/dL Normal 6.4-8.9 [facility] Comment on above: Performed By: #### C BC, LDH, CMP #### [place] [address] [place] Sodium [Moles/Vol] 140 mmol/L Normal 136-145 [facility] Comment on above: Performed By: #### C BC, LDH, CMP #### [address] Urea nitrogen [Mass/Vol] 34 mg/dL High 7-25 [facility] Comment on above: Performed By: #### C BC, LDH, CMP #### [address] [place] [address] [facility] Creatinine [Mass/volume] in Serum or PlasmaOrdered By: Rose Ohara on 04-12-2023 Creatinine [Mass/Vol] 1.01 mg/dL 0.60-1.20 [facility] Eosinophils Auto (Bld) [#/Vo l]Ordered By: Rose Ohara on 04-12-2023 Eosinophils (Bld) [#/Vol] 0.2 10*3/uL 0.0-0.45 [facility] Eosinophils/100 WBC Auto (Bl d)Ordered By: Rose Ohara on 04-12-2023 Eosinophils/100 WBC (Bld) 2.2 % . [facility] Erythrocyte distribution wid th Auto (RBC) [Ratio]Ordered By: Rose Ohara on 04-12-2023 Erythrocyte distribution width (RBC) [Ratio] 14.7 % 11.9-15.3 [facility] Globulin Calc (S) [Mass/Vol] Ordered By: Rose Ohara on 04-12-2023 Globulin (S) [Mass/Vol] 2.6 g/dL [facility] Glucose [Mass/volume] in Ser um or PlasmaOrdered By: Rose Ohara on 04-12-2023 Glucose [Mass/Vol] 203 mg/dL 70-100 [facility] Comment on above: ADA recommended refe rence rangeRandom Glucose Reference Range is dependent on time and content of last meal. Glucose of more than 200 mg/dL in a nonstressed, ambulatory subject supports the diagnosis of Diabetes Mellitus. Hematocrit Auto (Bld) [Volum e fraction]Ordered By: Rose Ohara on 04-12-2023 Hematocrit (Bld) [Volume fraction] 41.4 % 34.0-46.4 [facility] Hemoglobin [Mass/volume] in BloodOrdered By: Rose Ohara on 04-12-2023 Hemoglobin (Bld) [Mass/Vol] 13.5 g/dL 11.8-15.4 [facility] LDH Lactate Dehydrogenaseon 04-12-2023 LDH Lactate Dehydrogenase 120 U/L Low 140-271 [facility] Comment on above: Result Comment: PERF ORMED BY: [facility] [address] [place], [place] [id number] PATHOLOGIST TENT WORKER SHEBA RICO M.D. Performed By: #### C BC, LDH, CMP #### [facility] [address] Lactate dehydrogenase [Enzym atic activity/volume] in Serum or Plasma by Lactate to pyOrdered By: Rose Ohara on 04-12-2023 LDH Lactate to pyruvate reaction [Catalytic activity/Vol] 120 U/L 140-271 [facility] Leukocytes [#/volume] correc jin for nucleated erythrocytes in Blood by Automated counOrdered By: Rose Ohara on 04-12-2023 WBC corrected for nucl RBC Auto (Bld) [#/Vol] 6.9 10*3/uL 3.8-11.6 [facility] Lymphocytes Auto (Bld) [#/Vo l]Ordered By: Rose Ohara on 04-12-2023 Lymphocytes (Bld) [#/Vol] 1.8 10*3/uL 1.00-4.8 [facility] Lymphocytes/100 WBC Auto (Bl d)Ordered By: Rose Ohara on 04-12-2023 Lymphocytes/100 WBC (Bld) 26.0 % . [facility] MCH Auto (RBC) [Entitic mass ]Ordered By: Rose Ohara on 04-12-2023 MCH (RBC) [Entitic mass] 29.3 pg 24.7-34.3 [facility] MCHC Auto (RBC) [Mass/Vol]Or dered By: Rose Ohara on 04-12-2023 MCHC (RBC) [Mass/Vol] 32.7 g/dL 32.0-35.0 [facility] MCV Auto (RBC) [Entitic vol] Ordered By: Rose Ohara on 04-12-2023 MCV (RBC) [Entitic vol] 89.4 fL 80-100 [facility] Monocytes Auto (Bld) [#/Vol] Ordered By: Rose Ohara on 04-12-2023 Monocytes (Bld) [#/Vol] 0.6 10*3/uL 0.0-0.8 [facility] Monocytes/100 WBC Auto (Bld) Ordered By: Rose Ohara on 04-12-2023 Monocytes/100 WBC (Bld) 8.6 % . [facility] Neutrophils Auto (Bld) [#/Vo l]Ordered By: Rose Ohara on 04-12-2023 Neutrophils (Bld) [#/Vol] 4.3 10*3/uL 1.8-7.7 [facility] Neutrophils/100 WBC Auto (Bl d)Ordered By: Rose Ohara on 04-12-2023 Neutrophils/100 WBC (Bld) 62.3 % . [facility] No Panel InformationOrdered By: Rose Ohara on 04-12-2023 Estimated GFR (CKD-EPI) 58.780 mL/Min [facility] Creatinine Clearance (Chem 54.77 [facility] Nucleated erythrocytes [Pres ence] in Blood by Automated countOrdered By: Rose Ohara on 04-12-2023 Nucleated RBC Auto Ql (Bld) 0.1 /100{WBC} 0-0.5 [facility] Platelet mean volume Auto (B ld) [Entitic vol]Ordered By: Rose Ohara on 04-12-2023 Platelet mean volume (Bld) [Entitic vol] 8.3 fL 6.3-10.7 [facility] Platelets Auto (Bld) [#/Vol] Ordered By: Rose Ohara on 04-12-2023 Platelets (Bld) [#/Vol] 197 10*3/uL 150-450 [facility] Potassium [Moles/volume] in Serum or PlasmaOrdered By: Rose Ohara on 04-12-2023 Potassium [Moles/Vol] 4.8 mmol/L 3.5-5.1 [facility] Protein [Mass/volume] in Ser um or PlasmaOrdered By: Rose Ohara on 04-12-2023 Protein [Mass/Vol] 6.7 g/dL 6.4-8.9 [facility] RBC Auto (Bld) [#/Vol]Ordere d By: Rose Ohara on 04-12-2023 RBC (Bld) [#/Vol] 4.62 10*6/uL 3.60-5.00 [facility] Serum or plasma albumin/glob ulin mass ratioOrdered By: Rose Ohara on 04-12-2023 Albumin/Globulin [Mass ratio] 1.6 {ratio} [facility] Serum or plasma anion gap de terminationOrdered By: Rose Ohara on 04-12-2023 Anion gap [Moles/Vol] 15.6 mmol/L 6.0-15.0 [facility] Sodium [Moles/volume] in Ser um or PlasmaOrdered By: Rose Ohara on 04-12-2023 Sodium [Moles/Vol] 140 mmol/L 136-145 [facility] Urea nitrogen [Mass/volume] in Serum or PlasmaOrdered By: Rose Ohara on 04-12-2023 Urea nitrogen [Mass/Vol] 34 mg/dL 7-25 [facility] WBC Auto (Bld) [#/Vol]Ordere d By: Rose Ohara on 04-12-2023 WBC (Bld) [#/Vol] 6.9 10*3/uL 3.8-11.6 [facility] US extremity nonvascularon 0 04-07-2023 US extremity nonvascular [facility] [place] [address] Ultrasound Report Signed Patient: Tosha Mcneal MR#: [id number] : 1950 Acct:[id number] Age/Sex: 72 / F ADM Date: 04/07/23 Loc: Room: Type: [facility] Attending Dr: Rose Ohara MD Ordering Provider: Rose Ohara MD Date of Service: 04/07/23 US/US extremity nonvascular: Surveillance Melanoma Copies to: Rose Ohara MD Exam: Right axillary ultrasound. Reason for exam: History of melanoma. Follow-up. COMPARISON: Prior right axillary ultrasound 09/21/2022. TECHNIQUE: Grayscale and color Doppler images of the right axilla were obtained. FINDINGS: Imaging of the right axilla demonstrates multiple benign-appearing lymph nodes, largest measuring 1.9 cm in greatest dimension, unchanged from the prior ultrasound study. No sinister- appearing lymph nodes are identified. No suspicious mass is seen within the right axilla. US/US extremity nonvascular IMPRESSION: Benign-appearing lymph nodes within the right axilla, grossly unchanged from the prior study. Impression dictated by: Miki Kruse Jr., D.O.04/07/2023 8:57 AM Dictation Location: [facility] Tech: Valerie Frankel Transcribed By: PWS 04/07/23856 Dictated By: Miki Kruse Jr, DO 04/07/2344 Signed By: 04/07/23856 Normal [facility] LIPID PROFILEon 03-03-2023 CHOL-HDL RATIO NORM SEE BELOW Normal [facility] Comment on above: Result Comment: 3.3 - 4.4 LOW RISK 4.4 - 7.1 AVERAGE RISK 7.1 - 11.0 MODERATE RISK >11.0 HIGH RISK Performed By: #### L IPID #### [facility] [address] [address] [address] Claudia Branch Cholesterol [Mass/Vol] 129 mg/dL Normal <=200 Th [facility] Comment on above: Performed By: #### L IPID #### [facility] [address] [address] [address] Claudia Branch Cholesterol in HDL [Mass/Vol] 43 mg/dL Normal 40-60 [facility] Comment on above: Performed By: #### L IPID #### [facility] [address] [address] [address] Claudia Branch Cholesterol in LDL [Mass/Vol] 34.4 mg/dL Normal [facility] Comment on above: Performed By: #### L IPID #### [facility] [address] [address] [address] Claudia Branch Cholesterol.total/Chol esterol in HDL [Mass ratio] 3.0 {ratio} Normal [facility] Comment on above: Performed By: #### L IPID #### [facility] [id number] Claudia Branch HDL NORMAL > or = 60 mg/dl - LO W CARDIOVASCULAR RISK <40 mg/dl - HIGH CARDIOVASCULAR RISK Normal [facility] Comment on above: Performed By: #### L IPID #### [facility] [address] [address] [address] Claudia Branch LDL CALC NORMAL SEE BELOW Normal [facility] Comment on above: Result Comment: <100 mg/dl OPTIMAL 100 - 129 mg/dl NEAR OR ABOVE OPTIMAL 130 - 159 mg/dl BORDERLINE HIGH 160 - 189 mg/dl HIGH >190 mg/dl VERY HIGH Performed By: #### L IPID #### [facility] [address] [place] [address] Dr. Claudia Branch Triglyceride [Mass/Vol] 258 mg/dL Critically high <=150 [facility] Comment on above: Performed By: #### L IPID #### [facility] [address] [place] [address] Dr. Claudia Branch VLDL CALC 51.6 mg/dL Normal [facility] Comment on above: Performed By: #### L IPID #### [facility] [address] [place] [address] Dr. Claudia Branch PROF 14(COMP METB)on 023 Albumin [Mass/Vol] 3.7 g/dL Normal 3.4-5.0 [facility] Comment on above: Performed By: #### C MP #### [facility] [address] [place] [address] Dr. Claudia Branch Albumin/Globulin [Mass ratio] 1.1 {ratio} Normal [facility] Comment on above: Performed By: #### C MP #### [facility] [address] [place] [address] Dr. Claudia Branch ALP [Catalytic activity/Vol] 66 U/L Normal 46-116 [facility] Comment on above: Performed By: #### C MP #### [facility] [address] [place] [address] Dr. Claudia Branch ALT [Catalytic activity/Vol] 22 U/L Normal 14-59 [facility] Comment on above: Performed By: #### C MP #### [facility] [address] [place] [address] Dr. Claudia Branch Anion gap [Moles/Vol] 15.4 mmol/L Normal [facility] Comment on above: Performed By: #### C MP #### [facility] [address] [place] [address] Dr. Claudia Branch AST [Catalytic activity/Vol] 14 U/L Critically low 15-37 [facility] Comment on above: Performed By: #### C MP #### [facility] [address] [address] [address] Claudia Branch Bilirubin [Mass/Vol] 1.0 mg/dL Normal 0.2-1.0 [facility] Comment on above: Performed By: #### C MP #### [facility] [address] [address] [address] Claudia Branch Calcium [Mass/Vol] 9.4 mg/dL Normal 8.5-10.1 [facility] Comment on above: Performed By: #### C MP #### [facility] [address] [address] [address] Claudia Branch Chloride [Moles/Vol] 102 mmol/L Normal 98-107 [facility] Comment on above: Performed By: #### C MP #### [facility] [address] [address] [address] Claudia Branch CO2 [Moles/Vol] 28.0 mmol/L Normal 21.0-32.0 [facility] Comment on above: Performed By: #### C MP #### [facility] [address] [address] [address] Claudia Branch Creatinine [Mass/Vol] 1.04 mg/dL Critically high 0.55-1.02 [facility] Comment on above: Performed By: #### C MP #### [facility] [address] [address] [address] Claudia Branch EGFR-AF [place] >60 Normal >=60 [facility] Comment on above: Performed By: #### C MP #### [facility] [address] [address] [address] Claudia Branch EGFR-NON AF [place] 52 mL/min/1.73m2 Critically low >=60 [facility] Comment on above: Performed By: #### C MP #### [facility] [address] [address] [address] Claudia Branch Globulin (S) [Mass/Vol] 3.5 g/dL Normal [facility] Comment on above: Performed By: #### C MP #### [facility] [address] [address] [address] Claudia Branch Glucose [Mass/Vol] 174 mg/dL Critically high 74-106 [facility] Comment on above: Performed By: #### C MP #### [facility] [address] [address] [address] Claudia Branch Potassium [Moles/Vol] 5.4 mmol/L Critically high 3.5-5.1 [facility] Comment on above: Performed By: #### C MP #### [facility] [address] [address] [address] Claudia Branch Protein [Mass/Vol] 7.2 g/dL Normal 6.4-8.2 [facility] Comment on above: Performed By: #### C MP #### [facility] [address] [address] [address] Claudia Branch Sodium [Moles/Vol] 140 mmol/L Normal 136-145 [facility] Comment on above: Performed By: #### C MP #### [facility] [address] [address] [address] Claudia Branch Urea nitrogen [Mass/Vol] 26.0 mg/dL Critically high 7.0-18.0 [facility] Comment on above: Performed By: #### C MP #### [facility] [address] [address] [address] Claudia Branch Urea nitrogen/Creatinine [Mass ratio] 25.0 mg/mg Normal [facility] Comment on above: Performed By: #### C MP #### [facility] [address] [address] [address] Claudia Branch Estimated glomerular filtrat ion rate (GFR) non- AmericanOrdered By: Rose Ohara on 12-21-2022 GFR/1.73 sq M.predicted among non-blacks MDRD (S/P/Bld) [Vol rate/Area] > 60 mL/Min [facility] No Panel InformationOrdered By: Rose Ohara on 12-21-2022 Estimated GFR () > 60 mL/Min [facility] Comment on above: GFR estimated refere nce range: According to KDOQI guidelines, <60 ml/min/1.73m2 is sufficient to diagnose a patient with chronic kidney disease. Albumin [Mass/volume] in Ser um or PlasmaOrdered By: Rose Ohara on 09-22-2022 Albumin [Mass/Vol] 3.7 g/dL 3.2-5.5 [facility] Basophils Auto (Bld) [#/Vol] Ordered By: Rose Ohara on 09-22-2022 Basophils (Bld) [#/Vol] 0.1 10*3/uL 0.0-0.2 [facility] Basophils/100 WBC Auto (Bld) Ordered By: Rose Ohara on 09-22-2022 Basophils/100 WBC (Bld) 1.0 % . [facility] Creatinine and Glomerular fi ltration rate.predicted panel (S/P/Bld)Ordered By: Rose Ohara on 09-22-2022 Creatinine [Mass/Vol] 0.80 mg/dL 0.44-1.03 [facility] Eosinophils Auto (Bld) [#/Vo l]Ordered By: Rose Ohara on 09-22-2022 Eosinophils (Bld) [#/Vol] 0.1 10*3/uL 0.0-0.45 [facility] Eosinophils/100 WBC Auto (Bl d)Ordered By: Rose Ohara on 09-22-2022 Eosinophils/100 WBC (Bld) 2.0 % . [facility] Erythrocyte distribution wid th Auto (RBC) [Ratio]Ordered By: Rose Ohara on 09-22-2022 Erythrocyte distribution width (RBC) [Ratio] 14.7 % 11.9-15.3 [facility] Estimated glomerular filtrat ion rate (GFR) non- AmericanOrdered By: Rose Ohara on 09-22-2022 GFR/1.73 sq M.predicted among non-blacks MDRD (S/P/Bld) [Vol rate/Area] > 60 mL/Min [facility] Globulin Calc (S) [Mass/Vol] Ordered By: Rose Ohara on 09-22-2022 Globulin (S) [Mass/Vol] 2.8 g/dL [facility] Hematocrit Auto (Bld) [Volum e fraction]Ordered By: Rose Ohara on 09-22-2022 Hematocrit (Bld) [Volume fraction] 43.2 % 34.0-46.4 [facility] Hemoglobin [Mass/volume] in BloodOrdered By: Rose Ohara on 09-22-2022 Hemoglobin (Bld) [Mass/Vol] 13.9 g/dL 11.8-15.4 [facility] - Hematology and Cell countsOrdered By: Rose Ohara on 09-22-2022 Nucleated RBC/100 WBC (Bld) [Ratio] 0.1 % 0-0.5 [facility] Lactate dehydrogenase measur ement (enzymatic activity/volume)Ordered By: Rose Ohara on 09-22-2022 LDH (Unsp spec) [Catalytic activity/Vol] 106 U/L 45-190 [facility] Leukocytes [#/volume] in Blo od by Automated countOrdered By: Rose Ohara on 09-22-2022 WBC (Bld) [#/Vol] 6.9 10*3/uL 4.5-11.0 [facility] Lymphocytes Auto (Bld) [#/Vo l]Ordered By: Rose Ohara on 09-22-2022 Lymphocytes (Bld) [#/Vol] 1.5 10*3/uL 1.00-4.8 [facility] Lymphocytes/100 WBC Auto (Bl d)Ordered By: Rose Ohara on 09-22-2022 Lymphocytes/100 WBC (Bld) 21.6 % . [facility] MCH Auto (RBC) [Entitic mass ]Ordered By: Rose Ohara on 09-22-2022 MCH (RBC) [Entitic mass] 29.0 pg 24.7-34.3 [facility] MCHC Auto (RBC) [Mass/Vol]Or dered By: Rose Ohara on 09-22-2022 MCHC (RBC) [Mass/Vol] 32.2 g/dL 32.0-35.0 [facility] MCV Auto (RBC) [Entitic vol] Ordered By: Rose Ohara on 09-22-2022 MCV (RBC) [Entitic vol] 90.2 fL 80-100 [facility] Monocytes Auto (Bld) [#/Vol] Ordered By: Rose Ohara on 09-22-2022 Monocytes (Bld) [#/Vol] 0.7 10*3/uL 0.0-0.8 [facility] Monocytes/100 WBC Auto (Bld) Ordered By: Rose Ohara on 09-22-2022 Monocytes/100 WBC (Bld) 9.7 % . [facility] Neutrophils Auto (Bld) [#/Vo l]Ordered By: Rose Ohara on 09-22-2022 Neutrophils (Bld) [#/Vol] 4.5 10*3/uL 1.8-7.7 [facility] Neutrophils/100 WBC Auto (Bl d)Ordered By: Rose Ohara on 09-22-2022 Neutrophils/100 WBC (Bld) 65.7 % . [facility] No Panel InformationOrdered By: Rose Ohara on 09-22-2022 Estimated GFR () > 60 mL/Min [facility] Comment on above: GFR estimated refere nce range: According to KDOQI guidelines, <60 ml/min/1.73m2 is sufficient to diagnose a patient with chronic kidney disease. Pharmacy Creatinine Clearance (Chem 70.04 [facility] Platelet mean volume Auto (B ld) [Entitic vol]Ordered By: Rose Ohara on 09-22-2022 Platelet mean volume (Bld) [Entitic vol] 8.0 fL 6.3-10.7 [facility] Platelets Auto (Bld) [#/Vol] Ordered By: Rose Ohara on 09-22-2022 Platelets (Bld) [#/Vol] 227 10*3/uL 150-450 [facility] Protein [Mass/volume] in Ser um or PlasmaOrdered By: Rose Ohara on 09-22-2022 Protein [Mass/Vol] 6.5 g/dL 6.1-7.9 [facility] RBC Auto (Bld) [#/Vol]Ordere d By: Rose Ohara on 09-22-2022 RBC (Bld) [#/Vol] 4.79 10*6/uL 3.60-5.00 [facility] Serum or plasma alanine mari otransferase measurement without P-5'-P (enzymatic activiOrdered By: Rose Ohara on 09-22-2022 ALT No additional P-5'-P [Catalytic activity/Vol] 16 U/L 10-60 [facility] Serum or plasma albumin/glob ulin mass ratioOrdered By: Rose Ohara on 09-22-2022 Albumin/Globulin [Mass ratio] 1.3 {ratio} [facility] Serum or plasma alkaline danial sphatase measurement (enzymatic activity/volume)Ordered By: Rose Ohara on 09-22-2022 ALP [Catalytic activity/Vol] 45 U/L 32-92 [facility] Serum or plasma anion gap de terminationOrdered By: Rose Ohara on 09-22-2022 Anion gap [Moles/Vol] 11.0 mmol/L 6.0-15.0 [facility] Serum or plasma aspartate am inotransferase measurement (enzymatic activity/volume)Ordered By: Rose Ohara on 09-22-2022 AST [Catalytic activity/Vol] 17 U/L 10-42 [facility] Serum or plasma calcium kandi urement (mass/volume)Ordered By: Rose Ohara on 09-22-2022 Calcium [Mass/Vol] 9.2 mg/dL 8.2-10.2 [facility] Serum or plasma chloride florentino surement (moles/volume)Ordered By: Rose Ohara on 09-22-2022 Chloride [Moles/Vol] 99 mmol/L 95-114 [facility] Serum or plasma glucose kandi urement (mass/volume)Ordered By: Rose Ohara on 09-22-2022 Glucose [Mass/Vol] 113 mg/dL 70-100 [facility] Comment on above: ADA recommended refe rence rangeRandom Glucose Reference Range is dependent on time and content of last meal. Glucose of more than 200 mg/dL in a nonstressed, ambulatory subject supports the diagnosis of Diabetes Mellitus. Serum or plasma potassium me asurement (moles/volume)Ordered By: Rose Ohara on 09-22-2022 Potassium [Moles/Vol] 4.3 mmol/L 3.5-5.1 [facility] Serum or plasma sodium measu rement (moles/volume)Ordered By: Rose Ohara on 09-22-2022 Sodium [Moles/Vol] 135 mmol/L 136-146 [facility] Serum or plasma total biliru bin measurement (mass/volume)Ordered By: Rose Ohara on 09-22-2022 Bilirubin [Mass/Vol] 1.2 mg/dL 0.3-1.2 [facility] Serum or plasma total carbon dioxide measurement (moles/volume)Ordered By: Rose Ohara on 09-22-2022 CO2 [Moles/Vol] 29.3 mmol/L 22.0-30.0 [facility] Serum or plasma urea nitroge n measurement (mass/volume)Ordered By: Rose Ohara on 09-22-2022 Urea nitrogen [Mass/Vol] 16 mg/dL 9 [facility] GLYCOHEMOGLOBIN A1Con 2021 ADA RECOMMENDATION SEE BELOW Normal [facility] Comment on above: Result Comment: ADA RECOMMENDED LIMIT 4.0 - 6.0 ADA THERAPEUTIC TARGET < 7.0 ACTION SUGGESTED > 7.0 Performed By: #### A 1C #### [facility] [address] [address] [address] Claudia Branch Glucose [Mass/Vol] 169 mg/dL Normal [facility] Comment on above: Performed By: #### A 1C #### [facility] [address] [address] [address] Claudia Branch HbA1c (Bld) [Mass fraction] 7.5 % Critically high 4.5-6.2 [facility] Comment on above: Performed By: #### A 1C #### [facility] [address] [address] [address] Claudia Branch LIPID PROFILEon 08-26-2022 CHOL-HDL RATIO NORM SEE BELOW Normal [facility] Comment on above: Result Comment: 3.3 - 4.4 LOW RISK 4.4 - 7.1 AVERAGE RISK 7.1 - 11.0 MODERATE RISK >11.0 HIGH RISK Performed By: #### L IPID, CMP #### [facility] [address] [address] [address] Claudia Branch Cholesterol [Mass/Vol] 99 mg/dL Normal <=200 Th [facility] Comment on above: Performed By: #### L IPID, CMP #### [facility] [address] [address] [address] Claudia Branch Cholesterol in HDL [Mass/Vol] 45 mg/dL Normal 40-60 [facility] Comment on above: Performed By: #### L IPID, CMP #### [facility] [address] [address] [address] Claudia Branch Cholesterol in LDL [Mass/Vol] 22.6 mg/dL Normal [facility] Comment on above: Performed By: #### L IPID, CMP #### [facility] [address] [address] [address] Claudia Branch Cholesterol.total/Chol esterol in HDL [Mass ratio] 2.2 {ratio} Normal [facility] Comment on above: Performed By: #### L IPID, CMP #### [facility] [address] [address] [address] Claudia Branch HDL NORMAL > or = 60 mg/dl - LO W CARDIOVASCULAR RISK <40 mg/dl - HIGH CARDIOVASCULAR RISK Normal [facility] Comment on above: Performed By: #### L IPID, CMP #### [facility] [address] [address] [address] Claudia Branch LDL CALC NORMAL SEE BELOW Normal [facility] Comment on above: Result Comment: <100 mg/dl OPTIMAL 100 - 129 mg/dl NEAR OR ABOVE OPTIMAL 130 - 159 mg/dl BORDERLINE HIGH 160 - 189 mg/dl HIGH >190 mg/dl VERY HIGH Performed By: #### L IPID, CMP #### [facility] [address] [address] [address] Claudia Branch Triglyceride [Mass/Vol] 157 mg/dL Critically high <=150 [facility] Comment on above: Performed By: #### L IPID, CMP #### [facility] [address] [address] [address] Claudia Branch VLDL CALC 31.4 mg/dL Normal [facility] Comment on above: Performed By: #### L IPID, CMP #### [facility] [address] [address] [address] Claudia Branch PROF 14(COMP METB)on 022 Albumin [Mass/Vol] 3.9 g/dL Normal 3.4-5.0 [facility] Comment on above: Performed By: #### L IPID, CMP #### [facility] [address] [address] [address] Claudia Branch Albumin/Globulin [Mass ratio] 1.0 {ratio} Normal [facility] Comment on above: Performed By: #### L IPID, CMP #### [facility] [address] [address] [address] Claudia Branch ALP [Catalytic activity/Vol] 57 U/L Normal 46-116 [facility] Comment on above: Performed By: #### L IPID, CMP #### [facility] [address] [place] [address] Dr. Claudia Branch ALT [Catalytic activity/Vol] 22 U/L Normal 14-59 [facility] Comment on above: Performed By: #### L IPID, CMP #### [facility] [address] [address] [address] Claudia Branch Anion gap [Moles/Vol] 10.7 mmol/L Normal [facility] Comment on above: Performed By: #### L IPID, CMP #### [facility] [address] [address] [address] Claudia Branch AST [Catalytic activity/Vol] 11 U/L Critically low 15-37 [facility] Comment on above: Performed By: #### L IPID, CMP #### [facility] [address] [address] [address] Claudia Branch Bilirubin [Mass/Vol] 1.4 mg/dL Critically high 0.2-1.0 [facility] Comment on above: Performed By: #### L IPID, CMP #### [facility] [address] [address] [address] Claudia Branch Calcium [Mass/Vol] 9.3 mg/dL Normal 8.5-10.1 [facility] Comment on above: Performed By: #### L IPID, CMP #### [facility] [address] [address] [address] Claudia Branch Chloride [Moles/Vol] 103 mmol/L Normal 98-107 [facility] Comment on above: Performed By: #### L IPID, CMP #### [facility] [address] [address] [address] Claudia Branch CO2 [Moles/Vol] 31.2 mmol/L Normal 21.0-32.0 [facility] Comment on above: Performed By: #### L IPID, CMP #### [facility] [address] [address] [address] Claudia Branch Creatinine [Mass/Vol] 0.83 mg/dL Normal 0.55-1.02 [facility] Comment on above: Performed By: #### L IPID, CMP #### [facility] [address] [place] [address] Dr. Claudia Branch EGFR-AF [place] >60 Normal >=60 [facility] Comment on above: Performed By: #### L IPID, CMP #### [facility] [address] [place] [address] Dr. Claudia Branch EGFR-NON AF [place] >60 Normal >=60 [facility] Comment on above: Performed By: #### L IPID, CMP #### [facility] [address] [place] [address] Dr. Claudia Branch Globulin (S) [Mass/Vol] 3.6 g/dL Normal [facility] Comment on above: Performed By: #### L IPID, CMP #### [facility] [address] [address] [address] Claudia Branch Glucose [Mass/Vol] 114 mg/dL Critically high 74-106 [facility] Comment on above: Performed By: #### L IPID, CMP #### [facility] [address] [place] [address] Dr. Claudia Branch Potassium [Moles/Vol] 4.4 mmol/L Normal 3.5-5.1 [facility] Comment on above: Performed By: #### L IPID, CMP #### [facility] [address] [address] [address] Claudia Branch Protein [Mass/Vol] 7.5 g/dL Normal 6.4-8.2 [facility] Comment on above: Performed By: #### L IPID, CMP #### [facility] [address] [place] [address] Dr. Claudia Branch Sodium [Moles/Vol] 141 mmol/L Normal 136-145 [facility] Comment on above: Performed By: #### L IPID, CMP #### [facility] [address] [place] [address] Dr. Claudia Branch Urea nitrogen [Mass/Vol] 20.0 mg/dL Critically high 7.0-18.0 [facility] Comment on above: Performed By: #### L IPID, CMP #### [facility] [address] [place] [address] Dr. Claudia Branch Urea nitrogen/Creatinine [Mass ratio] 24.0 mg/mg Normal [facility] Comment on above: Performed By: #### L IPID, CMP #### [facility] [address] [place] [address] Dr. Clauida Branch GI PANEL (PCR)on 08-11-2022 Adenovirus F 40/41 Not detected Normal NOT DETECTED [facility] Comment on above: Performed By: #### G IPANEL #### [facility] [address] [place] [address] Dr. Claudia Branch Astrovirus Not detected Normal NOT DETECTED [facility] Comment on above: Performed By: #### G IPANEL #### [facility] [address] [place] [address] Dr. Claudia Branch C. Diff toxin A/B Detected Critically abnormal NOT DETECTED [facility] Comment on above: Performed By: #### G IPANEL #### [facility] [address] [place] [address] Dr. Claudia Branch Campylobacter Not detected Normal NOT DETECTED [facility] Comment on above: Performed By: #### G IPANEL #### [facility] [address] [place], [place] [id number] Dr. Claudia Branch Cryptosporidium Not detected Normal NOT DETECTED [facility] Comment on above: Performed By: #### G IPANEL #### [facility] [address] [place] [address] Dr. Claudia Branch Cyclos. Cayetanensis Not detected Normal NOT DETECTED [facility] Comment on above: Performed By: #### G IPANEL #### [facility] [address] [place] [address] Dr. Claduia Branch E. Coli O157 Not Applicable Normal Not Applicable [facility] Comment on above: Performed By: #### G IPANEL #### [facility] [address] [place] [address] Dr. Claudia Branch E. histolytica Not detected Normal NOT DETECTED [facility] Comment on above: Performed By: #### G IPANEL #### [facility] [address] [place] [address] Dr. Claudia Branch EAEC Not detected Normal NOT DETECTED [facility] Comment on above: Performed By: #### G IPANEL #### [facility] [address] [place] [address] Dr. Claudia Branch EIEC Not detected Normal NOT DETECTED [facility] Comment on above: Performed By: #### G IPANEL #### [facility] [address] [place] [address] Dr. Claudia Branch EPEC Not detected Normal NOT DETECTED [facility] Comment on above: Performed By: #### G IPANEL #### [facility] [address] [place] [address] Dr. Claudia Branch ETEC Not detected Normal NOT DETECTED [facility] Comment on above: Performed By: #### G IPANEL #### [facility] [address] [place] [address] Dr. Claudia Dent. Lamblia Not detected Normal NOT DETECTED [facility] Comment on above: Performed By: #### G IPANEL #### [facility] [address] [place] [address] Dr. Claudia Branch GIPANEL CONTROLS PASSED Normal The [facility] Comment on above: Performed By: #### G IPANEL #### [facility] [address] [place] [address] Dr. Claudia MCKAY [facility] GI PANEL BACTERIA Normal T [facility] Comment on above: Performed By: #### G IPANEL #### [facility] [address] [address] [address] Claudia RAMIREZ ECOLI GI PANEL DIARRHEAGEN IC E.COLI / SHIGELLA Normal [facility] Comment on above: Performed By: #### G IPANEL #### [facility] [address] [place] [address] Dr. Claudia RAMIREZ INFO SEE BELOW Normal [facility] Comment on above: Result Comment: EAEC - Enteroaggregative E. Coli EPEC- Enteropathogenic E. Coli ETEC- Enterotoxigenic E. Coli lt/st STEC- Shigella-like toxin-producing E. Coli stx1/stx2 EIEC- Shigella/Enteroinvasive E. Coli Performed By: #### G IPANEL #### [facility] [address] [place] [address] Dr. Claudia RAMIREZ PARASITES GI PANEL PARASITES Normal [facility] Comment on above: Performed By: #### G IPANEL #### [facility] [address] [place] [address] Dr. Claudia RAMIREZ VIRUS GI PANEL VIRUSES Normal [facility] Comment on above: Performed By: #### G IPANEL #### [facility] [address] [place] [address] Dr. Claudia Branch Norovirus GI/GII Not detected Normal NOT DETECTED [facility] Comment on above: Performed By: #### G IPANEL #### [facility] [address] [place] [address] Dr. Claudia Branch P. Shigelloides Not detected Normal NOT DETECTED [facility] Comment on above: Performed By: #### G IPANEL #### [facility] [address] [place] [address] Dr. Claudia Branch Rotavirus A Not detected Normal NOT DETECTED [facility] Comment on above: Performed By: #### G IPANEL #### [facility] [address] [address] [address] Claudia Branch Salmonella Not detected Normal NOT DETECTED [facility] Comment on above: Performed By: #### G IPANEL #### [facility] [address] [address] [address] Claudia Branch Sapovirus Not detected Normal NOT DETECTED [facility] Comment on above: Performed By: #### G IPANEL #### [facility] [address] [place] [address] Dr. Claudia Branch STEC Not detected Normal NOT DETECTED [facility] Comment on above: Performed By: #### G IPANEL #### [facility] [address] [address] [address] Claudia Branch Vibrio Not detected Normal NOT DETECTED [facility] Comment on above: Performed By: #### G IPANEL #### [facility] [address] [place] [address] Dr. Claudia Branch Vibrio Cholera Not detected Normal NOT DETECTED [facility] Comment on above: Performed By: #### G IPANEL #### [facility] [address] [place] [address] Dr. Claudia Branch Y. Enterocolitica Not detected Normal NOT DETECTED [facility] Comment on above: Performed By: #### G IPANEL #### [facility] [address] [place] [address] Dr. Claudia Branch Albumin [Mass/volume] in Ser um or PlasmaOrdered By: Rose Ohara on 06-29-2022 Albumin [Mass/Vol] 4.1 g/dL 3.2-5.5 [facility] Basophils Auto (Bld) [#/Vol] Ordered By: Rose Ohara on 06-29-2022 Basophils (Bld) [#/Vol] 0.1 10*3/uL 0.0-0.2 [facility] Basophils/100 WBC Auto (Bld) Ordered By: Rose Ohara on 06-29-2022 Basophils/100 WBC (Bld) 1.2 % . [facility] Blood hemoglobin measurement (mass/volume)Ordered By: Rose Ohara on 06-29-2022 Hemoglobin (Bld) [Mass/Vol] 15.0 g/dL 11.8-15.4 [facility] Blood leukocytes automated c ount (number/volume)Ordered By: Rose Ohara on 06-29-2022 WBC (Bld) [#/Vol] 8.4 10*3/uL 4.5-11.0 [facility] Creatinine and Glomerular fi ltration rate.predicted panel (S/P/Bld)Ordered By: Rose Ohara on 06-29-2022 Creatinine [Mass/Vol] 0.87 mg/dL 0.44-1.03 [facility] Eosinophils Auto (Bld) [#/Vo l]Ordered By: Rose Ohara on 06-29-2022 Eosinophils (Bld) [#/Vol] 0.3 10*3/uL 0.0-0.45 [facility] Eosinophils/100 WBC Auto (Bl d)Ordered By: Rose Ohara on 06-29-2022 Eosinophils/100 WBC (Bld) 3.7 % . [facility] Erythrocyte distribution wid th Auto (RBC) [Ratio]Ordered By: Rose Ohara on 06-29-2022 Erythrocyte distribution width (RBC) [Ratio] 14.9 % 11.9-15.3 [facility] Estimated glomerular filtrat ion rate (GFR) non- AmericanOrdered By: Rose Ohara on 06-29-2022 GFR/1.73 sq M.predicted among non-blacks MDRD (S/P/Bld) [Vol rate/Area] > 60 mL/Min [facility] Globulin Calc (S) [Mass/Vol] Ordered By: Rose Ohara on 06-29-2022 Globulin (S) [Mass/Vol] 3.0 g/dL [facility] Hematocrit Auto (Bld) [Volum e fraction]Ordered By: Rose Ohara on 06-29-2022 Hematocrit (Bld) [Volume fraction] 45.9 % 34.0-46.4 [facility] - Hematology and Cell countsOrdered By: Rose Ohara on 06-29-2022 Nucleated RBC/100 WBC (Bld) [Ratio] 0.1 % 0-0.5 [facility] Lactate dehydrogenase measur ement (enzymatic activity/volume)Ordered By: Rose Ohara on 06-29-2022 LDH (Unsp spec) [Catalytic activity/Vol] 131 U/L 45-190 [facility] Lymphocytes Auto (Bld) [#/Vo l]Ordered By: Rose Ohara on 06-29-2022 Lymphocytes (Bld) [#/Vol] 1.6 10*3/uL 1.00-4.8 [facility] Lymphocytes/100 WBC Auto (Bl d)Ordered By: Rose Ohara on 06-29-2022 Lymphocytes/100 WBC (Bld) 18.8 % . [facility] MCH Auto (RBC) [Entitic mass ]Ordered By: Rose Ohara on 06-29-2022 MCH (RBC) [Entitic mass] 29.8 pg 24.7-34.3 [facility] MCHC Auto (RBC) [Mass/Vol]Or dered By: Rose Ohara on 06-29-2022 MCHC (RBC) [Mass/Vol] 32.8 g/dL 32.0-35.0 [facility] MCV Auto (RBC) [Entitic vol] Ordered By: Rose Ohara on 06-29-2022 MCV (RBC) [Entitic vol] 91.0 fL 80-100 [facility] Monocytes Auto (Bld) [#/Vol] Ordered By: Rose Ohara on 06-29-2022 Monocytes (Bld) [#/Vol] 0.8 10*3/uL 0.0-0.8 [facility] Monocytes/100 WBC Auto (Bld) Ordered By: Rose Ohara on 06-29-2022 Monocytes/100 WBC (Bld) 9.5 % . [facility] Neutrophils Auto (Bld) [#/Vo l]Ordered By: Rose Ohara on 06-29-2022 Neutrophils (Bld) [#/Vol] 5.6 10*3/uL 1.8-7.7 [facility] Neutrophils/100 WBC Auto (Bl d)Ordered By: Rose Ohara on 06-29-2022 Neutrophils/100 WBC (Bld) 66.8 % . [facility] No Panel InformationOrdered By: Rose Ohara on 06-29-2022 Estimated GFR () > 60 mL/Min [facility] Comment on above: GFR estimated refere nce range: According to KDOQI guidelines, <60 ml/min/1.73m2 is sufficient to diagnose a patient with chronic kidney disease. Pharmacy Creatinine Clearance (Chem 64.07 [facility] Platelet mean volume Auto (B ld) [Entitic vol]Ordered By: Rose Ohara on 06-29-2022 Platelet mean volume (Bld) [Entitic vol] 7.9 fL 6.3-10.7 [facility] Platelets Auto (Bld) [#/Vol] Ordered By: Rose Ohara on 06-29-2022 Platelets (Bld) [#/Vol] 226 10*3/uL 150-450 [facility] Protein [Mass/volume] in Ser um or PlasmaOrdered By: Rose Ohara on 06-29-2022 Protein [Mass/Vol] 7.1 g/dL 6.1-7.9 [facility] RBC Auto (Bld) [#/Vol]Ordere d By: Rose Ohara on 06-29-2022 RBC (Bld) [#/Vol] 5.04 10*6/uL 3.60-5.00 [facility] Serum or plasma alanine mari otransferase measurement without P-5'-P (enzymatic activiOrdered By: Rose Ohara on 06-29-2022 ALT No additional P-5'-P [Catalytic activity/Vol] 27 U/L 10-60 [facility] Serum or plasma albumin/glob ulin mass ratioOrdered By: Rose Ohara on 06-29-2022 Albumin/Globulin [Mass ratio] 1.4 {ratio} [facility] Serum or plasma alkaline danial sphatase measurement (enzymatic activity/volume)Ordered By: Rose Ohara on 06-29-2022 ALP [Catalytic activity/Vol] 56 U/L 32-92 [facility] Serum or plasma aspartate am inotransferase measurement (enzymatic activity/volume)Ordered By: Rose Ohara on 06-29-2022 AST [Catalytic activity/Vol] 26 U/L 10-42 [facility] Serum or plasma calcium kandi urement (mass/volume)Ordered By: Rose Ohara on 06-29-2022 Calcium [Mass/Vol] 10.2 mg/dL 8.2-10.2 [facility] Serum or plasma chloride florentino surement (moles/volume)Ordered By: Rose Ohara on 06-29-2022 Chloride [Moles/Vol] 102 mmol/L 95-114 [facility] Serum or plasma glucose kandi urement (mass/volume)Ordered By: Rose Ohara on 06-29-2022 Glucose [Mass/Vol] 130 mg/dL 70-100 [facility] Comment on above: ADA recommended refe rence range Random Glucose Reference Range is dependent on time and content of last meal. Glucose of more than 200 mg/dL in a nonstressed, ambulatory subject supports the diagnosis of Diabetes Mellitus. Serum or plasma potassium me asurement (moles/volume)Ordered By: Rose Ohara on 06-29-2022 Potassium [Moles/Vol] 4.9 mmol/L 3.5-5.1 [facility] Serum or plasma sodium measu rement (moles/volume)Ordered By: Rose Ohara on 06-29-2022 Sodium [Moles/Vol] 139 mmol/L 136-146 [facility] Serum or plasma total biliru bin measurement (mass/volume)Ordered By: Rose Ohara on 06-29-2022 Bilirubin [Mass/Vol] 1.2 mg/dL 0.3-1.2 [facility] Serum or plasma total carbon dioxide measurement (moles/volume)Ordered By: Rose Ohara on 06-29-2022 CO2 [Moles/Vol] 24.6 mmol/L 22.0-30.0 [facility] Serum or plasma urea nitroge n measurement (mass/volume)Ordered By: Rose Ohara on 06-29-2022 Urea nitrogen [Mass/Vol] 21 mg/dL 07-30 [facility] BNPon 04-29-2022 Natriuretic peptide B (Bld) [Mass/Vol] 280.0 pg/mL Normal <=900.0 [facility] Comment on above: Performed By: #### B [employer], BMP #### [facility] [address] [address] [address] Claudia Branch PROF CHEM 8 (BAS METB)on Anion gap [Moles/Vol] 17.9 mmol/L Normal Th [facility] Comment on above: Performed By: #### B [employer], BMP #### [facility] [address] [address] [address] Claudia Branch Calcium [Mass/Vol] 8.9 mg/dL Normal 8.5-10.1 [facility] Comment on above: Performed By: #### B [employer], BMP #### [facility] [address] [place] [address] Dr. Claudia Branch Chloride [Moles/Vol] 104 mmol/L Normal 98-107 [facility] Comment on above: Performed By: #### B [employer], BMP #### [facility] [address] [place] [address] Dr. Claudia Branch CO2 [Moles/Vol] 23.2 mmol/L Normal 21.0-32.0 [facility] Comment on above: Performed By: #### B [employer], BMP #### [facility] [address] [place] [address] Dr. Claudia Branch Creatinine [Mass/Vol] 1.04 mg/dL Critically high 0.55-1.02 [facility] Comment on above: Performed By: #### B [employer], BMP #### [facility] [address] [place] [address] Dr. Claudia Branch EGFR-AF [place]ER >60 Normal >=60 [facility] Comment on above: Performed By: #### B [employer], BMP #### [facility] [address] [place] [address] Dr. Claudia Branch EGFR-NON AF [place] 52 mL/min/1.73m2 Critically low >=60 [facility] Comment on above: Performed By: #### B [employer], BMP #### [facility] [address] [place] [address] Dr. Claudia Branch Glucose [Mass/Vol] 254 mg/dL Critically high 74-106 [facility] Comment on above: Performed By: #### B [employer], BMP #### [facility] [address] [place] [address] Dr. Claudia Branch Potassium [Moles/Vol] 5.1 mmol/L Normal 3.5-5.1 [facility] Comment on above: Performed By: #### B [employer], BMP #### [facility] [address] [place] [address] Dr. Claudia Branch Sodium [Moles/Vol] 140 mmol/L Normal 136-145 [facility] Comment on above: Performed By: #### B [employer], BMP #### [facility] [address] [place] [address] Dr. Claudia Branch Urea nitrogen [Mass/Vol] 25.0 mg/dL Critically high 7.0-18.0 [facility] Comment on above: Performed By: #### B [employer], BMP #### [facility] [address] [place] [address] Dr. Claudia Branch Urea nitrogen/Creatinine [Mass ratio] 24.0 mg/mg Normal [facility] Comment on above: Performed By: #### B [employer], BMP #### [facility] [address] [place] [address] Dr. Claudia Branch BASIC METABOLIC PANELon 06-0 Calcium [Mass/Vol] 9.7 mg/dL Normal 8.6-10.4 [facility] Comment on above: Performed By: #### 8 99, [id number] #### [facility] [address] [address] [employer] Painter: Baldemar Jones MD Chloride [Moles/Vol] 106 mmol/L Normal 98-110 [facility] Comment on above: Performed By: #### 8 99, [id number] #### [facility] [address] [address] [employer]: Baldemar Jones MD CO2 [Moles/Vol] 24 mmol/L Normal 20-32 [facility] Comment on above: Performed By: #### 8 99, [id number] #### [facility] [address] [address] [employer]ter: Baldemar Jones MD Creatinine [Mass/Vol] 1.32 mg/dL High 0.60-0.[address] [facility] Comment on above: Result Comment: For patients >49 years of age, the reference limit for Creatinine is approximately 13% higher for people identified as -[place]. Performed By: #### 8 99, [id number] #### [facility] [address] [address] [employer]: Baldemar Jones MD eGFR NON-AFR. [place] 40 mL/min/1.73m2 Low > OR = 60 [facility] Comment on above: Performed By: #### 8 99, [id number] #### [facility] [address] [address] [employer]ter: Baldemar Jones MD GFR/1.73 sq M.predicted among blacks MDRD (S/P/Bld) [Vol rate/Area] 47 mL/min/{1.73_m2} Low > OR = 60 [facility] Comment on above: Performed By: #### 8 99, [id number] #### [facility] [address] [address] [employer]: Baldemar Jones MD Glucose [Mass/Vol] 99 mg/dL Normal 65-99 [facility] Comment on above: Result Comment: Fasting reference interval Performed By: #### 8 99, [id number] #### [facility] [address] [address] [employer]: Baldemar Jones MD Potassium [Moles/Vol] 4.6 mmol/L Normal 3.5-5.3 [facility] Comment on above: Performed By: #### 8 99, [id number] #### [facility] [address] [address] [employer]: Baldemar Jones MD Sodium [Moles/Vol] 143 mmol/L Normal 135-146 [facility] Comment on above: Performed By: #### 8 99, [id number] #### [facility] [address] [address] [employer]: Baldemar Jones MD Urea nitrogen [Mass/Vol] 30 mg/dL High 7-25 [facility] Comment on above: Performed By: #### 8 99, [id number] #### [facility] of [address], [address] [place] [address] [employer]: Baldemar Jones MD Urea nitrogen/Creatinine [Mass ratio] 23 mg/mg High 04-28 [facility] Comment on above: Performed By: #### 8 99, [id number] #### [facility] [address], [address] [place] [address] [employer]: Baldemar Jones MD TSHon 04-09-2022 TSH Qn 0.67 m[IU]/L Normal 0.40-4.50 [facility] Comment on above: Performed By: #### 8 99, [id number] #### [facility] [address], [address] [place] [address] [employer]: Baldemar Jones MD Albumin [Mass/volume] in Ser um or PlasmaOrdered By: Rose Ohara on 03-25-2022 Albumin [Mass/Vol] 3.8 g/dL 3.2-5.5 [facility] Basophils Auto (Bld) [#/Vol] Ordered By: Rose Ohara on 03-25-2022 Basophils (Bld) [#/Vol] 0.1 10*3/uL 0.0-0.2 [facility] Basophils/100 WBC Auto (Bld) Ordered By: Rose Ohara on 03-25-2022 Basophils/100 WBC (Bld) 1.1 % [facility] Blood hemoglobin measurement (mass/volume)Ordered By: Rose Ohara on 03-25-2022 Hemoglobin (Bld) [Mass/Vol] 14.2 g/dL 11.8-15.4 [facility] Blood leukocytes automated c ount (number/volume)Ordered By: Rose Ohara on 03-25-2022 WBC (Bld) [#/Vol] 7.4 10*3/uL 4.5-11.0 [facility] Creatinine and Glomerular fi ltration rate.predicted panel (S/P/Bld)Ordered By: Rose Ohara on 03-25-2022 Creatinine [Mass/Vol] 1.40 mg/dL 0.44-1.03 [facility] Eosinophils Auto (Bld) [#/Vo l]Ordered By: Rose Ohara on 03-25-2022 Eosinophils (Bld) [#/Vol] 0.2 10*3/uL 0.0-0.45 [facility] Eosinophils/100 WBC Auto (Bl d)Ordered By: Rose Ohara on 03-25-2022 Eosinophils/100 WBC (Bld) 2.6 % [facility] Erythrocyte distribution wid th Auto (RBC) [Ratio]Ordered By: Rose Ohara on 03-25-2022 Erythrocyte distribution width (RBC) [Ratio] 15.1 % 11.9-15.3 [facility] Estimated glomerular filtrat ion rate (GFR) non- AmericanOrdered By: Rose Ohara on 03-25-2022 GFR/1.73 sq M.predicted among non-blacks MDRD (S/P/Bld) [Vol rate/Area] 37 mL/Min [facility] Globulin Calc (S) [Mass/Vol] Ordered By: Rose Ohara on 03-25-2022 Globulin (S) [Mass/Vol] 2.5 g/dL [facility] Hematocrit Auto (Bld) [Volum e fraction]Ordered By: Rose Ohara on 03-25-2022 Hematocrit (Bld) [Volume fraction] 43.3 % 34.0-46.4 [facility] - Hematology and Cell countsOrdered By: Rose Ohara on 03-25-2022 Nucleated RBC/100 WBC (Bld) [Ratio] 0.1 % 0-0.5 [facility] Lactate dehydrogenase measur ement (enzymatic activity/volume)Ordered By: Rose Ohara on 03-25-2022 LDH (Unsp spec) [Catalytic activity/Vol] 111 U/L 45-190 [facility] Lymphocytes Auto (Bld) [#/Vo l]Ordered By: Rose Ohara on 03-25-2022 Lymphocytes (Bld) [#/Vol] 1.7 10*3/uL 1.00-4.8 [facility] Lymphocytes/100 WBC Auto (Bl d)Ordered By: Rose Ohara on 03-25-2022 Lymphocytes/100 WBC (Bld) 22.3 % [facility] MCH Auto (RBC) [Entitic mass ]Ordered By: Rose Ohara on 03-25-2022 MCH (RBC) [Entitic mass] 29.0 pg 24.7-34.3 [facility] MCHC Auto (RBC) [Mass/Vol]Or dered By: Rose Ohara on 03-25-2022 MCHC (RBC) [Mass/Vol] 32.8 g/dL 32.0-35.0 [facility] MCV Auto (RBC) [Entitic vol] Ordered By: Rose Ohara on 03-25-2022 MCV (RBC) [Entitic vol] 88.3 fL 80-100 [facility] Monocytes Auto (Bld) [#/Vol] Ordered By: Rose Ohara on 03-25-2022 Monocytes (Bld) [#/Vol] 0.7 10*3/uL 0.0-0.8 [facility] Monocytes/100 WBC Auto (Bld) Ordered By: Rose Ohara on 03-25-2022 Monocytes/100 WBC (Bld) 9.5 % [facility] Neutrophils Auto (Bld) [#/Vo l]Ordered By: Rose Ohara on 03-25-2022 Neutrophils (Bld) [#/Vol] 4.8 10*3/uL 1.8-7.7 [facility] Neutrophils/100 WBC Auto (Bl d)Ordered By: Rose Ohara on 03-25-2022 Neutrophils/100 WBC (Bld) 64.5 % [facility] No Panel InformationOrdered By: Rose Ohara on 03-25-2022 Estimated GFR () 45 mL/Min [facility] Comment on above: GFR estimated refere nce range: According to KDOQI guidelines, <60 ml/min/1.73m2 is sufficient to diagnose a patient with chronic kidney disease. Pharmacy Creatinine Clearance (Chem 39.92 [facility] Platelet mean volume Auto (B ld) [Entitic vol]Ordered By: Rose Ohara on 03-25-2022 Platelet mean volume (Bld) [Entitic vol] 8.2 fL 6.3-10.7 [facility] Platelets Auto (Bld) [#/Vol] Ordered By: Rose Ohara on 03-25-2022 Platelets (Bld) [#/Vol] 232 10*3/uL 150-450 [facility] Protein [Mass/volume] in Ser um or PlasmaOrdered By: Rose Oahra on 03-25-2022 Protein [Mass/Vol] 6.3 g/dL 6.1-7.9 [facility] RBC Auto (Bld) [#/Vol]Ordere d By: Rose Ohara on 03-25-2022 RBC (Bld) [#/Vol] 4.90 10*6/uL 3.60-5.00 [facility] Serum or plasma alanine mari otransferase measurement without P-5'-P (enzymatic activiOrdered By: Rose Ohara on 03-25-2022 ALT No additional P-5'-P [Catalytic activity/Vol] 23 U/L 10-60 [facility] Serum or plasma albumin/glob ulin mass ratioOrdered By: Rose Ohara on 03-25-2022 Albumin/Globulin [Mass ratio] 1.5 {ratio} [facility] Serum or plasma alkaline danial sphatase measurement (enzymatic activity/volume)Ordered By: Rose Ohara on 03-25-2022 ALP [Catalytic activity/Vol] 43 U/L 32-92 [facility] Serum or plasma aspartate am inotransferase measurement (enzymatic activity/volume)Ordered By: Rose Ohara on 03-25-2022 AST [Catalytic activity/Vol] 18 U/L 10-42 [facility] Serum or plasma calcium kandi urement (mass/volume)Ordered By: Rose Ohara on 03-25-2022 Calcium [Mass/Vol] 9.7 mg/dL 8.2-10.2 [facility] Serum or plasma chloride florentino surement (moles/volume)Ordered By: Rose Ohara on 03-25-2022 Chloride [Moles/Vol] 98 mmol/L 95-114 [facility] Serum or plasma glucose kandi urement (mass/volume)Ordered By: Rose Ohara on 03-25-2022 Glucose [Mass/Vol] 201 mg/dL 70-100 [facility] Comment on above: ADA recommended refe rence range Random Glucose Reference Range is dependent on time and content of last meal. Glucose of more than 200 mg/dL in a nonstressed, ambulatory subject supports the diagnosis of Diabetes Mellitus. Serum or plasma potassium me asurement (moles/volume)Ordered By: Rose [place] on 03-25-2022 Potassium [Moles/Vol] 4.7 mmol/L 3.5-5.1 [facility] Serum or plasma sodium measu rement (moles/volume)Ordered By: Rose Ohara on 03-25-2022 Sodium [Moles/Vol] 139 mmol/L 136-146 [facility] Serum or plasma total biliru bin measurement (mass/volume)Ordered By: Rose Ohara on 03-25-2022 Bilirubin [Mass/Vol] 1.2 mg/dL 0.3-1.2 [facility] Serum or plasma total carbon dioxide measurement (moles/volume)Ordered By: Rose Ohara on 03-25-2022 CO2 [Moles/Vol] 27.4 mmol/L 22.0-30.0 [facility] Serum or plasma urea nitroge n measurement (mass/volume)Ordered By: Rose Ohara on 03-25-2022 Urea nitrogen [Mass/Vol] 29 mg/dL 9- [facility] TSH DL <= 0.005 mIU/L QnOrde red By: Rose Ohara on 03-25-2022 TSH Qn 0.89 m[IU]/L 0.45-5.33 [facility] BASIC METABOLIC PANELon 04-0 BUN/CREATININE RATIO NOT APPLICABLE Normal 6-22 [facility] Comment on above: Order Comment: FASTI NG:YES FASTING: YES Performed By: #### 4 96, 30228 #### [facility] [address], [address] [place], [place] [id number] [employer] Screen Painter: Baldemar Jones MD Calcium [Mass/Vol] 9.4 mg/dL Normal 8.6-10.4 [facility] Comment on above: Order Comment: FASTI NG:YES FASTING: YES Performed By: #### 4 96, 13689 #### [facility] [address] [place] [address], [address] [employer] Screen Painter: Baldemar Jones MD Chloride [Moles/Vol] 101 mmol/L Normal 98-110 [facility] Comment on above: Order Comment: FASTI NG:YES FASTING: YES Performed By: #### 4 96, 20662 #### [facility] [address], [address] [place] [address] [employer] Screen Painter: Baldemar Jones MD CO2 [Moles/Vol] 31 mmol/L Normal 20-32 [facility] Comment on above: Order Comment: FASTI NG:YES FASTING: YES Performed By: #### 4 96, 36794 #### [facility] [address], [address] [place] [address] [employer] Screen Painter: Baldemar Jones MD Creatinine [Mass/Vol] 0.84 mg/dL Normal 0.60-0.93 [facility] Comment on above: Order Comment: FASTI NG:YES FASTING: YES Result Comment: For patients >49 years of age, the reference limit for Creatinine is approximately 13% higher for people identified as -Montenegrin. Performed By: #### 4 96, 27938 #### [facility] [address], [address] [place] [address] [employer] Screen Painter: Baldemar Jones MD eGFR NON-AFR. [place] 69 mL/min/1.73m2 Normal > OR = 60 [facility] Comment on above: Order Comment: FASTI NG:YES FASTING: YES Performed By: #### 4 96, 34387 #### [facility] [address], [address] [place] [address] [employer] Screen Painter: Baldemar Jones MD GFR/1.73 sq M.predicted among blacks MDRD (S/P/Bld) [Vol rate/Area] 80 mL/min/{1.73_m2} Normal > OR = 60 [facility] Comment on above: Order Comment: FASTI NG:YES FASTING: YES Performed By: #### 4 96, 57619 #### [facility] [address], [address] [place] [address] [employer]k Screen Painter: Baldemar Jones MD Glucose [Mass/Vol] 108 mg/dL High 65-99 [facility] Comment on above: Order Comment: FASTI NG:YES FASTING: YES Result Comment: Fasting reference interval For someone without known diabetes, a glucose value between 100 and 125 mg/dL is consistent with prediabetes and should be confirmed with a follow-up test. Performed By: #### 4 96, 27566 #### [facility] [address], [address] [place] [address] [employer]k Screen Painter: Baldemar Jones MD Potassium [Moles/Vol] 4.5 mmol/L Normal 3.5-5.3 [facility] Comment on above: Order Comment: FASTI NG:YES FASTING: YES Performed By: #### 4 96, 94881 #### [facility] [address], [address] [place] [address] [employer] Screen Painter: Baldemar Jones MD Sodium [Moles/Vol] 143 mmol/L Normal 135-146 [facility] Comment on above: Order Comment: FASTI NG:YES FASTING: YES Performed By: #### 4 96, 22539 #### [facility] [address], [address] [place] [address] Silk Screen Painter: Baldemar Jones MD Urea nitrogen [Mass/Vol] 22 mg/dL Normal 7-25 [facility] Comment on above: Order Comment: FASTI NG:YES FASTING: YES Performed By: #### 4 96, 66987 #### [facility] [address], [address] [place] [address] Silk Screen Painter: Baldemar Jones MD HEMOGLOBIN A1con 02-13-2022 HEMOGLOBIN A1c 7.9 % of total Hgb High <5.7 [facility] Comment on above: Result Comment: For someone without known diabetes, a hemoglobin A1c value of 6.5% or greater indicates that they may have diabetes and this should be confirmed with a follow-up test. For someone with known diabetes, a value <7% indicates that their diabetes is well controlled and a value greater than or equal to 7% indicates suboptimal control. A1c targets should be individualized based on duration of diabetes, age, comorbid conditions, and other considerations. Currently, no consensus exists regarding use of hemoglobin A1c for diagnosis of diabetes for children. Performed By: #### 4 96, 77997 #### [facility] [address], [address] [place], [place] [id number] Silk Screen Painter: Baldemar Jones MD No Panel InformationOrdered By: Bang Nunez on 01-09-2022 Adrenocorticotropic Hormone 39.5 pg/mL 7.2-63.3 [facility] Comment on above: ACTH reference inter bernarda for samples collected between 7 and 10 AM. Performed at: [facility] [address] [id number] Rat Culturist: Braxton Austin PhD, Phone: [phone] ACTH reference inter bernarda for samples collected between 7 and10 AM.Performed at: [address] [id number] Director: Braxton Austin PhD, Phone: [phone] Thyroxine (T4) free [Mass/vo lume] in Serum or PlasmaOrdered By: Bang Nunez on 01-09-2022 Free T4 [Mass/Vol] 0.81 ng/dL 0.61-1.12 [facility] B TYPE NATRIURETIC PEPTIDE ( BNP)on 12-03-2021 Natriuretic peptide B (Bld) [Mass/Vol] 67 pg/mL Normal <100 [facility] Comment on above: Result Comment: BNP levels increase with age in the general population with the highest values seen in individuals greater than 75 years of age. Reference: J. Am. Jim. Cardiol. 2002; 40:976-982. Performed By: #### 3 7386, 61983 #### [facility] [address], [address] [place] [address] Silk Screen Painter: Baldemar Jones MD BASIC METABOLIC PANELon 11-08 Calcium [Mass/Vol] 9.4 mg/dL Normal 8.6-10.4 [facility] Comment on above: Order Comment: FASTI NG:NO FASTING: NO Performed By: #### 3 1486, 90171 #### [facility] [address], [address] [place], [place] [id number] Silk Screen Painter: Baldemar Jones MD Chloride [Moles/Vol] 99 mmol/L Normal 98-110 [facility] Comment on above: Order Comment: FASTI NG:NO FASTING: NO Performed By: #### 3 7386, 85849 #### [facility] [address], [address] [place] [address] Silk Screen Painter: Baldemar Jones MD CO2 [Moles/Vol] 32 mmol/L Normal 20-32 [facility] Comment on above: Order Comment: FASTI NG:NO FASTING: NO Performed By: #### 3 7386, 29576 #### [facility] [address], [address] [place] [address] Silk Screen Painter: Baldemar Jones MD Creatinine [Mass/Vol] 0.90 mg/dL Normal 0.60-0.93 [facility] Comment on above: Order Comment: FASTI NG:NO FASTING: NO Result Comment: For patients >49 years of age, the reference limit for Creatinine is approximately 13% higher for people identified as -Montenegrin. Performed By: #### 3 7386, 26599 #### [facility] [address], [address] [place] [address] Silk Screen Painter: Baldemar Jones MD eGFR NON-AFR. [place] 64 mL/min/1.73m2 Normal > OR = 60 [facility] Comment on above: Order Comment: FASTI NG:NO FASTING: NO Performed By: #### 3 7386, 17210 #### [facility] [address], [address] [place] [address] Silk Screen Painter: Baldemar Jones MD GFR/1.73 sq M.predicted among blacks MDRD (S/P/Bld) [Vol rate/Area] 75 mL/min/{1.73_m2} Normal > OR = 60 [facility] Comment on above: Order Comment: FASTI NG:NO FASTING: NO Performed By: #### 3 7386, 67113 #### [facility] [address], [address] [place] [address] Silk Screen Painter: Baldemar Jones MD Glucose [Mass/Vol] 174 mg/dL High 65-139 [facility] Comment on above: Order Comment: FASTI NG:NO FASTING: NO Result Comment: Non-fasting reference interval For someone without known diabetes, a glucose value >125 mg/dL indicates that they may have diabetes and this should be confirmed with a follow-up test. Performed By: #### 3 7386, 67177 #### [facility] [address], [address] [place] [address] Silk Screen Painter: Baldemar Jones MD Potassium [Moles/Vol] 3.7 mmol/L Normal 3.5-5.3 [facility] Comment on above: Order Comment: FASTI NG:NO FASTING: NO Performed By: #### 3 7386, 42677 #### [facility] [place] [address] Silk Screen Painter: Baldemar Jones MD Sodium [Moles/Vol] 143 mmol/L Normal 135-146 [facility] Comment on above: Order Comment: FASTI NG:NO FASTING: NO Performed By: #### 3 7386, 73403 #### [facility] [address], [address] [place] [address] Silk Screen Painter: Baldemar Jones MD Urea nitrogen [Mass/Vol] 35 mg/dL High 7-25 [facility] Comment on above: Order Comment: FASTI NG:NO FASTING: NO Performed By: #### 3 7386, 60460 #### [facility] [place] [address] Silk Screen Painter: Baldemar Jones MD Urea nitrogen/Creatinine [Mass ratio] 39 mg/mg High 6-22 [facility] Comment on above: Order Comment: FASTI NG:NO FASTING: NO Performed By: #### 3 7386, 86672 #### [facility] [place] [address] Silk Screen Painter: Baldemar Jones MD ALBUMIN, RANDOM URINE W/KATHARINE Kang 10-02-2021 ALBUMIN, URINE 0.9 mg/dL Normal See Note: [facility] Comment on above: Result Comment: Refe rence Range: Reference Range Not established Performed By: #### 7 600, 6517, 90248 #### [facility] of [address], [address] [place] [address] Silk Screen Painter: Baldemar Jones MD ALBUMIN/CREATININE RATIO, RANDOM URINE 13 mcg/mg creat Normal <30 [facility] Comment on above: Result Comment: The ADA defines abnormalities in albumin excretion as follows: Albuminuria Category Result (mcg/mg creatinine) Normal to Mildly increased <30 Moderately increased 30-299 Severely increased > OR = 300 The ADA recommends that at least two of three specimens collected within a 3-6 month period be abnormal before considering a patient to be within a diagnostic category. Performed By: #### 7 600, 6517, 56075 #### [facility] [address], [address] [place] [address] Silk Screen Painter: Baldemar Jones MD Creatinine (U) [Mass/Vol] 69 mg/dL Normal 20-275 [facility] Comment on above: Performed By: #### 7 600, 6517, 99327 #### [facility] [address], [address] [place] [address] Silk Screen Painter: Baldemar Jones MD [facility] 10-02-2021 Albumin [Mass/Vol] 4.4 g/dL Normal 3.6-5.1 [facility] Comment on above: Performed By: #### 7 600, 6517, 80287 #### [facility] of [place] [address] Silk Screen Painter: Baldemar Jones MD Albumin/Globulin [Mass ratio] 1.7 {ratio} Normal 1.0-2.5 [facility] Comment on above: Performed By: #### 7 600, 6517, 41594 #### [facility] of [place] [address] Silk Screen Painter: Baldemar Jones MD ALP [Catalytic activity/Vol] 50 U/L Normal 37-153 [facility] Comment on above: Performed By: #### 7 600, 6517, 22567 #### [facility] [address], [address] [place] [address] Silk Screen Painter: Baldemar Jones MD ALT [Catalytic activity/Vol] 15 U/L Normal 6-29 [facility] Comment on above: Performed By: #### 7 600, 6517, 74228 #### [facility] of [place] [address] Silk Screen Painter: Baldemar Jones MD AST [Catalytic activity/Vol] 15 U/L Normal 10-35 [facility] Comment on above: Performed By: #### 7 600, 6517, 13955 #### [facility] of [address], [address] [place] [address] Silk Screen Painter: Baldemar oJnes MD Bilirubin [Mass/Vol] 1.2 mg/dL Normal 0.2-1.2 [facility] Comment on above: Performed By: #### 7 600, 6517, 50796 #### [facility] of [place] [address] Silk Screen Painter: Baldemar Jones MD BUN/CREATININE RATIO NOT APPLICABLE Normal 6-22 [facility] Comment on above: Performed By: #### 7 600, 6517, 37324 #### [facility] of [place] [address] Silk Screen Painter: Baldemar Jones MD Calcium [Mass/Vol] 9.6 mg/dL Normal 8.6-10.4 [facility] Comment on above: Performed By: #### 7 600, 6517, 37211 #### [facility] of [place] [address] Silk Screen Painter: Baldemar Jones MD Chloride [Moles/Vol] 103 mmol/L Normal 98-110 [facility] Comment on above: Performed By: #### 7 600, 6517, 25598 #### [facility] of [place] [address] Silk Screen Painter: Baldemar Jones MD CO2 [Moles/Vol] 27 mmol/L Normal 20-32 [facility] Comment on above: Performed By: #### 7 600, 6517, 34863 #### [facility] of [address] [address] Silk Screen Painter: Baldemar Jones MD Creatinine [Mass/Vol] 0.81 mg/dL Normal 0.60-0.93 [facility] Comment on above: Result Comment: For patients >49 years of age, the reference limit for Creatinine is approximately 13% higher for people identified as -Montenegr[place]. Performed By: #### 7 600, 6517, 66736 #### [facility] [address], [address] [place] [address] Silk Screen Painter: Baldemar Jones MD eGFR NON-AFR. [place] 73 mL/min/1.73m2 Normal > OR = 60 [facility] Comment on above: Performed By: #### 7 600, 6517, 49270 #### [facility] [address], [address] [place] [address] Silk Screen Painter: Baldemar Jones MD GFR/1.73 sq M.predicted among blacks MDRD (S/P/Bld) [Vol rate/Area] 85 mL/min/{1.73_m2} Normal > OR = 60 [facility] Comment on above: Performed By: #### 7 600, 6517, 76769 #### [facility] [address], [address] [place] [address] Silk Screen Painter: Baldemar Jones MD Globulin (S) [Mass/Vol] 2.6 g/dL Normal 1.9-3.7 [facility] Comment on above: Performed By: #### 7 600, 6517, 09631 #### [facility] [address], [address] [place] [address] Silk Screen Painter: Baldemar Jones MD Glucose [Mass/Vol] 109 mg/dL High 65-99 [facility] Comment on above: Result Comment: Fasting reference interval For someone without known diabetes, a glucose value between 100 and 125 mg/dL is consistent with prediabetes and should be confirmed with a follow-up test. Performed By: #### 7 600, 6517, 61238 #### [facility] [address], [address] [place] [address] Silk Screen Painter: Baldemar Jones MD Potassium [Moles/Vol] 4.1 mmol/L Normal 3.5-5.3 [facility] Comment on above: Performed By: #### 7 600, 6517, 23744 #### [facility] of [address], [address] [place] [address] Silk Screen Painter: Baldemar Jones MD Protein [Mass/Vol] 7.0 g/dL Normal 6.1-8.1 [facility] Comment on above: Performed By: #### 7 600, 6517, 01407 #### [facility] of [address], [address] [place] [address] Silk Screen Painter: Baldemar Jones MD Sodium [Moles/Vol] 143 mmol/L Normal 135-146 [facility] Comment on above: Performed By: #### 7 600, 65, 11024 #### [facility] of [address], [address] [place] [address] Silk Screen Painter: Baldemar Jones MD Urea nitrogen [Mass/Vol] 19 mg/dL Normal 7-25 [facility] Comment on above: Performed By: #### 7 600, 65, 46910 #### [facility] of [place] [address] Silk Screen Painter: Baldemar Jones MD LIPID PANEL, [place] [address] Cholesterol [Mass/Vol] 106 mg/dL Normal <200 [facility] Comment on above: Order Comment: FASTI NG:YES FASTING: YES Performed By: #### 7 600, 6517, 22451 #### [facility] of [address], [address] [place] [address] Silk Screen Painter: Baldemar Jones MD Cholesterol in HDL [Mass/Vol] 44 mg/dL Low > OR = 50 [facility] Comment on above: Order Comment: FASTI NG:YES FASTING: YES Performed By: #### 7 600, 6517, 88609 #### [facility] of [address], [address] [place] [address] Silk Screen Painter: Baldemar Jones MD Cholesterol in LDL [Mass/Vol] 36 mg/dL Normal [facility] Comment on above: Order Comment: FASTI NG:YES FASTING: YES Result Comment: Refe rence range: <100 Desirable range <100 mg/dL for primary prevention; <70 mg/dL for patients with CHD or diabetic patients with > or = 2 CHD risk factors. LDL-C is now calculated using the [place] calculation, which is a validated novel method providing better accuracy than the Friedewald equation in the estimation of LDL-C. Theo SS et al. KEZIA. 2013;310(19): 0535-1635 (http://education.Ziftit.Sipera Systems/faq/KUT851) Performed By: #### 7 600, 6517, 33601 #### [facility] [address], [address] [place] [address] Silk Screen Painter: Baldemar Jones MD Cholesterol.total/Chol esterol in HDL [Mass ratio] 2.4 {ratio} Normal <5.0 [facility] Comment on above: Order Comment: FASTI NG:YES FASTING: YES Performed By: #### 7 600, 6517, 80344 #### [facility] [address], [address] [place] [address] Silk Screen Painter: Baldemar Jones MD NON HDL CHOLESTEROL 62 mg/dL (calc) Normal <130 [facility] Comment on above: Order Comment: FASTI NG:YES FASTING: YES Result Comment: For patients with diabetes plus 1 major ASCVD risk factor, treating to a non-HDL-C goal of <100 mg/dL (LDL-C of <70 mg/dL) is considered a therapeutic option. Performed By: #### 7 600, 6517, 41593 #### [facility] [address], [address] [place] [address] Silk Screen Painter: Baldemar Jones MD Triglyceride [Mass/Vol] 185 mg/dL High <150 [facility] Comment on above: Order Comment: FASTI NG:YES FASTING: YES Performed By: #### 7 600, 6517, 94143 #### [facility] [address], [address] [place] [address] Silk Screen Painter: Baldemar Jones MD Laboratory - Chemistry and C hemistry - challengeOrdered By: Rose Ohara on 08-17-2021 Lipase [Catalytic activity/Vol] 27.0 U/L 22-51 [facility] Random cortisol measurementO rdered By: Rose Ohara on 08-17-2021 Cortisol [Mass/Vol] 10.1 ug/dL [facility] Comment on above: Reference range: AM 6 - 24 ug/dl PM <10 ug/dl Reference range: AM 6 - 24 ug/dl PM <10 ug/dl Creatinine (Bld) [Mass/Vol]O rdered By: Bang Nunze on 06-19-2021 Creatinine [Mass/Vol] 0.6 mg/dL 0.6-1.3 [facility] Comment on above: ER/ESD physician is notified/shown all ISTAT results. Critical values may be confirmed by laboratory testing if deemed necessary by ER attending doctor. ER/ESD physician is notified/shown all ISTAT results.Critical values may be confirmed by laboratory testing ifdeemed necessary by ER attending doctor. No Panel InformationOrdered By: Bang Nunez on 06-19-2021 POC Estimated GFR > 60 [facility] Comment on above: GFR estimated refere nce range: According to KDOQI guidelines, <60 ml/min/1.73m2 is sufficient to diagnose a patient with chronic kidney disease. POC Estimated GFR Non- Amer > 60 [facility] Glucose Glucometer (BldC) [M ass/Vol]Ordered By: Bang Nunez on 06-17-2021 Glucose [Mass/Vol] 124 mg/dL [facility] Comment on above: Random Glucose Refer ence Range is dependent on time and content of last meal. Glucose of more than 200 mg/dL in a nonstressed, ambulatory subject supports the diagnosis of Diabetes Mellitus. COVID-19 Positive/Negativeon 02-13-2021 SARS-CoV-2 (COVID-19) N gene KIP+probe Ql (Resp) Negative Negative [facility] Comment on above: Reference: Negative Testing for SARS-CoV-2 by RT-PCR This test was developed and its performance characteristics determined by [employer] ([employer]) and validated at the [facility]. This test has not been FDA cleared or approved. This test has been authorized by FDA under an Emergency Use Authorization (EUA). This test has been validated in accordance with the FDA's Guidance Document (Policy for Diagnostics Testing in Laboratories Certified to Perform High Complexity Testing under CLIA prior to Emergency Use Authorization for Coronavirus Disease-2019 during the Public Health Emergency) issued on February 07, 2020. This test is only authorized for the duration of time the declaration that circumstances exist justifying the authorization of the emergency use of in vitro diagnostic tests for detection of SARS-CoV-2 virus and/or diagnosis of COVID-19 infection under section 564(b)(1) of the Act, 21 U.S.C. 360bbb-3(b)(1), unless the authorization is terminated or revoked sooner. Reference: NegativeT esting for SARS-CoV-2 by RT-PCRThis test was developed and its performance characteristics determined by [employer] ([employer]) and validated at the [facility]. This test has not been FDA cleared or approved. This test has been authorized by FDA under an Emergency Use Authorization (EUA). This test has been validated in accordance with the FDA's Guidance Document (Policy for Diagnostics Testing in Laboratories Certified to Perform High Complexity Testing under CLIA prior to Emergency Use Authorization for Coronavirus Disease-2019 during the Public Health Emergency) issued on February 07, 2020. This test is only authorized for the duration of time the declaration that circumstances exist justifying the authorization of the emergency use of in vitro diagnostic tests for detection of SARS-CoV-2 virus and/or diagnosis of COVID-19 infection under section 564(b)(1) of the Act, 21 U.S.C. 360bbb-3(b)(1), unless the authorization is terminated or revoked sooner. Laboratory - Microbiology an d Antimicrobial susceptibilityon 02-13-2021 SARS-CoV-2 (COVID-19) RNA KIP+probe Ql (Unsp spec) N/A [facility] No Panel Informationon 12-22 Bedside Glucose Comment Glu2: cleaned meter [facility] Dermatopathologyon 1 Dermatopathology [facility] Dermatopathology Laboratory [address] [place] [id number] DERMATOPATHOLOGY REPORT Name:TOSHA MCNEAL [facility]. Rec #. [id number] Location: Date of Procedure: 11/28/2020 Race: Date Received: 12/01/2020 /Sex: 1950 (Age: 69) / F Date Reported: 12/10/2020 Other: Submitting Physician:CEDRICK BERGER MD FINAL DIAGNOSIS A. NODE, RIGHT AXILLARY NON-SENTINEL LYMPH NODE, EXCISION: BENIGN LYMPH NODE. B. NODE, RIGHT AXILLARY SENTINEL LYMPH NODE COUNT 1005, EXCISION: FOCAL SOX-10 POSITIVE CELL, SEE NOTE. Note: Microscopic examination reveals two cells that stain with antibodies against SOX-10 that have enlarged nuclei compared to the adjacent lymphocytes. The prior melanoma is not available for review. Staining is not seen on the Melan-A or HMB45 stains. All control slides stain appropriately. The prior biopsy [id number] was received and reviewed. The morphology is suspicious for micrometastatic malignant melanoma without extracapsular extension with a greatest diameter of 0.01 mm. Electronically Signed Out by JANNETH PONCE M.D. One or more of the reagents used to perform assays on this specimen MAY have contained components considered to be analyte specific reagents (ASR's). ASR's have not been cleared or approved by the U.S. Food and Drug Administration. These assays were developed and their performance characteristics determined by the Department of Pathology at [facility]. The FDA does not require this test to go through premarket FDA review. This test is used for clinical purposes. It should not be regarded as investigational or for research. This laboratory is certified under the Clinical Laboratory Improvement Amendments (CLIA) as qualified to perform high complexity clinical laboratory testing. The assays were performed with appropriate positive and negative controls which stained appropriately. Electronically Signed Out By JANNETH PONCE MD/ALEX By the signature on this report, the individual or group listed as making the Final Interpretation/Diagnosis certifies that they have reviewed this case. Clinical History: A: Non sentinal lymph node. Excision. B: Ravenel Lymph node count 1005. (Hospital Outpatient) Specimens Submitted As: A: NODE, RIGHT AXILLARY NON-SENTINEL LYMPH NODE B: NODE, RIGHT AXILLARY SENTINEL LYMPH NODE COUNT 1005 Gross Description: A: Received in formalin is a ackerman-yellow irregularly shaped piece of tissue measuring [id number]. The specimen is inked and embedded in toto. B: Received in formalin is one ackerman-yellow irregularly shaped piece of tissue measuring [id number]. The specimen is inked and embedded in toto in three blocks. ink/12/01/2020 Microscopic Description: A. Microscopic examination reveals a lymph node with normal architecture. No melanoma is seen on H and E staining. Melan-A, SOX-10, and HMB45 stains are unremarkable. All control slides stain appropriately. Normal [facility] Comment on above: Performed By: #### D #### Dermatopathology GLUCOSE-POCTon 11-28-2020 Glucose [Mass/Vol] 136 mg/dL High 74 - 99 [facility] Comment on above: Performed By: #### G WAYNE #### [facility] [address] [address] [place] [address] Glucose [Mass/Vol] 135 mg/dL High 74 - 99 [facility] Work Phone: Comment on above: Performed By: #### G WAYNE #### [address] [place] [address] History and Physical - Surge ry > 30 dayson 11-28-2020 History and Physical - Surgery > 30 days History of Present Illness: History Present Illness: Reason for surgery: melanoma HPI: 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 Allergies: Allergies: No Known Allergies: Home Medication Review: Home Medications Reviewed: yes Impression/Procedure: Impression and Planned Procedure: Plan for sentinel lymph node biopsy ERAS (Enhanced Recovery After Surgery): ERAS Patient: no Vital Signs: Temperature C: 36.4 degrees C Temperature F: 97.5 degrees F Heart Rate: 65 beats per minute Respiratory Rate: 16 breath per minute Blood Pressure Systolic: 124 mm/Hg Blood Pressure Diastolic: 57 mm/Hg Physical Exam by System: Constitutional: Well developed, awake/alert/oriented x3, no distress, alert and cooperative Respiratory/Thorax: Patent airways, no respiratory distress Cardiovascular: RRR Skin: Prior excision scar Consent: COVID-19 Consent: COVID-19 Risk ConsentSurgeon has reviewed hernandez risks related to the risk of napoleon COVID-19 and if they contract COVID-19 what the risks are. Signatures/Attestation: Note Completion: Attending Provider Inpatient Certification StatementObservation patient/other outpatient visits Electronic Signatures: Cedrick Berger) (Signed 28-Nov-2020 09:32) Authored: History of Present Illness, Allergies, Home Medication Review, Impression/Procedure, ERAS, Physical Exam, Consent, Note Completion Last Updated: 28-Nov-2020 09:32 by Cedrick Berger) Normal [facility] LYMPH GLANDon 11-28-2020 Lymphocytes (Bld) [#/Vol] Patient Name: TOSHA MCNEAL STUDY: LYMPH GLAND; 11/28/2020 10:56 am INDICATION: Malignant melanoma of right upper arm. COMPARISON: None. ACCESSION NUMBER(S): [id number] ORDERING CLINICIAN: CEDRICK BERGER TECHNIQUE: DIVISION OF NUCLEAR MEDICINE RADIONUCLIDE SENTINEL LYMPH NODE LYMPHOSCINTIGRAPHY A total of 1.045 millicuries of Tc-99m tilmanocept (Lymphoseek) was injected intradermally in a circumferential pattern surrounding the patient's right posterior upper arm melanoma biopsy site. Sequential and SPECT CT images were then acquired. FINDINGS: Initial dynamic images demonstrate intense activity within the right posterior upper arm injection site. Initial lymphatic transit activity was identified in the right axilla. Planar and SPECT CT images demonstrate a focus of activity associated with a right axillary lymph node. There are no other sentinel lymph nodes identified within the remainder of the neck, chest, and upper abdomen. IMPRESSION: Successful sentinel lymph node localization to the right axilla. Purchasing Manager images were sent to PACS. I personally reviewed the images/study and I agree with the findings as stated. This study was interpreted at [facility], [place], [place]. Electronically signed by: RICKI SALGADO MD Normal [facility] Patient Profile - Adult v2on 11-28-2020 Patient Profile - Adult v2 This report has been cancelled. Normal [facility] Patient Profile - Preop v2on 11-28-2020 Patient Profile - Preop v2 Profile: Initial Info: How to be AddressedSUZANNE(1) Spoken Language PreferredEnglish (1) Source of Informationpatient Are you currently using the Personal Electronic Health Record or [facility] Stated Reason for Admissioninjection in my lymph nodes Primary Contact Name and Numberharry-spouse Limitations on Visitors/Phone Callsonly spouse may visit Patient Belongingsremains with patient; patient educated regarding responsibility for personal items Patient Belongings Remaining with Patientclothing; vision aids; dental appliance Medications Brought to Hospitalno General Health: Weight in kg94.2 kilogram(s) Weight in smo842.6 pound(s) Weight Methodactual (measured) Scale Typechair Height in feet5 feet Height in inches0 inch(es) Height in cm152.4 centimeter(s) Height Methodstated BMI (kg/m2)40.558 square meter Patient or Family Member Reaction to Anesthesiano previous reaction Blood Avoidance/Restrictionsnon e Previous Transfusion Reactionno Health Mgmt: Symptoms/Conditions Managed at Homeendocrine; cardiovascular Cardiovascular Symptoms/Conditionshypert ension Endocrine Symptoms/Conditionsdiabet es Endocrine Management Strategiesinsulin therapy Barriers to Managing Healthnone Relationship/Environ: Living Arrangementshouse Lives Withspouse Resource/Environmental Concernsnone Anticipated Transition Tosaint francis Services Anticipated at Transitionnone Substance: Current or Former Substance Use never: Cigarette/Tobacco(1), e-Cigarette/Vaping(1), Alcohol(1), Street Drugs(1) Risk Screens: COVID-19 Screening Completedno exposure or symptoms Advance Directive/DNRno During the past month, have you often been bothered by feeling down, depressed or hopelessno During the past month, have you often had little interest or pleasure in doing thingsno Have you had any thoughts of harming yourselfno Have you had any thoughts of harming anyone elseno Are you or have you been threatened or abused physically,emotionally or sexually abused by anyoneno Do you feel UNSAFE going back to the place you are livingno Patient is Able to be Assessed for Learningyes Factors Influencing Readiness to Learnacuteness of illness Factors that Impact Ability to Learnvisual problems Devices/Methods Used to Communicateglasses Learning Preferencesverbal instruction; individual instruction; written material Cultural Considerationsnone Developmental Considerationsnone Rastafari Considerationsnone Other learner availableno [place] RiskPatient location auto qualifies him/her for HIGH RISK. Are there any cultural, spiritual, bahai practices/values/needs that are important for us to knowno Pain Scalenumerical 0-10 Pain Scale Educationteaching provided Current Pain Level0 = None Acceptable Pain Level3 = Mild Chronic Painno Information Review: Allergies, Home Meds and Significant Events have been Reviewed and Verified with Patient/Familyyes Allergy, Intolerance, Adverse Event: Allergies: No Known Allergies: Active Significant Events: 28-Nov-2020 see h & p: Past Medical History, Active Electronic Signatures: Melonie Melgar) (Signed 28-Nov-2020 08:00) Authored: Initial Info, General Health, Health Mgmt, Relationship/Environ, Substance, Risk Screens, Additional Information Last Updated: 28-Nov-2020 08:00 by Melonie Melgar (KENNEDY) References: 1. Data Referenced From Patient Profile - Adult v2 28-Nov-2020 07:19 Normal [facility] Preop Checkliston 11-28-2020 Preop Checklist Preop Checklist: Preop Checklist: Arrival [id number] Arrival Time07:00 Procedure Typeinjection of right arm excision scar Heart Rate65 beats per minute Respiratory Rate16 breath per minute Blood Pressure Poonzlmy907 mm/Hg Blood Pressure Gjsnwazaa69 mm/Hg NPO [id number] 10:30 ID Band Onyes Allergy Bandno known allergies Consent Signedyes H&P Completeyes EKG Performedyes Chest X-Ray Performednot ordered HCG Urine TestN/A Chlorhexadine Bath Givennot applicable Nasal Antiseptic Appliednot applicable Hair Washednot applicable Soap and water bath with hair shampoo the night before surgerynot applicable Hat placed on infant prior to transportnot applicable SCD's Appliednot applicable JIN Hose Appliednot ordered Denturesnot applicable remains with pt Prostheticsnot applicable Hearing Aidsnot applicable Valuables Securednot applicable Glasses / Contactswith pt Bowel Prepno Cardiovascular Assessment: Apicalregular Radial Pulsespalpable Pedal Pulsespalpable Extremitieswarm Respiratory Assessment: Respirationsregular Air Exchangegood, equal Breath Soundsclear Neurological Assessment: Level of Consciousnessalert Mobilitymoves all extremities Able to Express Selfyes Age Appropriateyes Emotional Statuscalm Preop Education: Surgical Site Infection Preventionyes Pain Scales and Managementyes Language / Communication: Language / CommunicationEnglish Electronic Signatures: Evelin Lovett) (Signed 28-Nov-2020 07:26) Authored: Preop Checklist Last Updated: 28-Nov-2020 07:26 by Evelin Lovett (RN) Normal [facility] CORONAVIRUS 2019, SCREEN ASY MPTOMATICon 11-26-2020 SARS-CoV-2 (COVID-19) RNA KIP+probe Ql (Unsp spec) Not detected Normal Not Detected [facility] Comment on above: Result Comment: . This assay is designed to detect the N, ORF1ab and/or S genes of SARS-CoV-2 via nucleic acid amplification. A Negative (NOT DETECTED) result does not preclude 2019-nCoV infection since the adequacy of sample collection and/or low viral burden may result in presence of viral nucleic acids below the clinical sensitivity of this test method. Negative (NOT DETECTED) result should not be used as the sole basis for treatment or other patient management decisions. Rather negative results should be combined with clinical observations, patient history, and epidemiological information to make patient management decisions. Fact sheet for providers: https://www.fda.gov/media/099575/download Fact sheet for patients: https://www.fda.gov/media/547962/download This test has received FDA Emergency Use Authorization (EUA) and has been verified by [facility] ([facility]). This test is only authorized for the duration of time that circumstances exist to justify the authorization of the emergency use of in vitro diagnostic tests for the detection of SARS-CoV-2 virus and/or diagnosis of COVID-19 infection under section 564(b)(1) of the Act, 21 U.S.C. 360bbb-3(b)(1), unless the authorization is terminated or revoked sooner. [facility] is certified under CLIA-88 as qualified to perform high complexity testing. Testing is performed in the [facility] laboratories located at [address] [place] [address]. Performed By: #### C OVSC #### [place] [address] Lab Specimen Source Nasal, Nasopharyngeal Normal [facility] Comment on above: Performed By: #### C OVSC #### [facility] [id number] [place] [address] Coronavirus 2019 RNA by PCR, Screening Asymptomticon 11-26-2020 Coronavirus 2019 RNA by PCR, Screening Asymptomtic NOT DETECTED See Below VK-Aozahjb-J [facility] Work Phone: Comment on above: SOURCE: Nasal, Nasop haryngealReference Range: Not Detected.This assay is designed to detect the N, ORF1ab and/or S genes of SARS-CoV-2 via nucleic acid amplification. A Negative (NOT DETECTED) result does not preclude 2019-nCoV infection since the adequacy of sample collection and/or low viral burden may result in presence of viral nucleic acids below the clinical sensitivity of this test method. Negative (NOT DETECTED) result should not be used as the sole basis for treatment or other patient management decisions. Rather negative results should be combined with clinical observations, patient history, and epidemiological information to make patient management decisions.Fact sheet for providers: https://www.fda.gov/media/875242/downloadFact sheet for patients: https://www.fda.gov/media/209310/downloadThis test has received FDA Emergency Use Authorization (EUA) and has been verified by [facility] ([facility]). This test is only authorized for the duration of time that circumstances exist to justify the authorization of the emergency use of in vitro diagnostic tests for the detection of SARS-CoV-2 virus and/or diagnosis of COVID-19 infection under section 564(b)(1) of the Act, 21 U.S.C. 360bbb-3(b)(1), unless the authorization is terminated or revoked sooner. [facility] is certified under CLIA-88 as qualified to perform high complexity testing. Testing is performed in the [facility] laboratories located at [address] [place] [address]. Covid 19 Resultson 1 SARS-CoV-2 (COVID-19) RNA KIP+probe Ql (Unsp spec) NEGATIVE COVID-19 Test Coronaviruses are common world-wide and are the cause of many common colds. SARS-COV2 is a new coronavirus that began circulating worldwide in 2019 so we are calling it COVID-19. It has been estimated that four out of five patients with COVID-19 will recover at home without the need for medical attention. Symptoms of COVID-19 include cough, fever, shortness of breath, loss of taste or smell and other flu-like symptoms including chills, sore muscles, sore throat, and headache. Severe illness is more common in older people and people with other health problems such as high blood pressure, obesity, and immune system problems. If the test is positive, you have COVID-19. You will be contacted by the ordering physicians office and instructed to remain on home isolation, in accordance with CDC guidelines. You may also be contacted by the [facility] to see if any of your close contacts may have been exposed to the virus and need to quarantine. If the test is negative, you likely do not have COVID-19 at this time, but you still may have a different illness that can spread to other people (like Influenza, or the Flu) and could still be at risk for getting COVID-19. We recommend that you stay away from other people to limit the spread of illness until your symptoms are improving and you are fever-free for 24 hours without the use of fever lowering medications such as acetaminophen or ibuprofen. No test is 100% accurate so if you are still concerned you may have COVID-19, talk to your doctor about the need to continue to stay away from others. Medicines Acetaminophen (Tylenol and others) is generally safe. Anti-inflammatory medications, such as Ibuprofen (Advil or Motrin) or Naproxen (Aleve) can also be used. Croz-wco-xeletgw cough and cold medicines can be used according to the instructions on the package. Some yogc-zyi-ypcecse medicines also contain acetaminophen. Make sure you are not taking more than your recommended dose For those not hospitalized, there is no specific treatment available for this illness. Antibiotics do not treat Coronaviruses. Follow-Up Follow up with your doctor by scheduling a virtual visit or consider follow-up at one of our urgent care fever clinics. If you are having difficulty breathing, or are very weak and having difficulty standing, this is a medical emergency. Call 911 or have someone take you to the nearest emergency room immediately. If possible, wear a facemask. Additional guidance from the CDC for patients who tested POSITIVE for COVID-19 How to isolate: Isolate yourself in a specific room at home and limit your contact with others. Use a separate bathroom from other members of the household, when possible. Leave home only to get essential medical care. Do not go to work, school or public areas. Avoid using public transportation, ride-sharing, or taxis. Restrict contact with pets and other animals. If you must care for your pet or be around animals while you are sick, wash your hands before and after your interaction and wear a facemask. Make sure that shared spaces in the home have good airflow, such as by an air conditioner or an opened window, weather permitting. Personal Hygiene Procedures: Wear a face mask when in the same room as other people or pets. If a face mask interferes with your breathing, others should wear a mask when sharing space with you. Frequent hand-washing: wash your hands with soap and water for at least 20 seconds. If soap and water are not available, use alcohol-based hand diversional therapist's assistant. Avoid touching your eyes, nose, and mouth with unwashed hands. Household Hygiene Procedures: Avoid sharing personal household items such as dishes, glassware, cups, eating utensils, towels or bedding with other people or pets in your home. After use, these items should be washed with soap and hot water. Disinfect all high-touch surfaces every day with antibacterial cleaning solutions such as Lysol wipes, bleach, cleansers, etc. High-touch surfaces include tabletops, doorknobs, bathroom fixtures, toilets, phones, keyboards, tablets and bedside tables. Immediately clean any surfaces that may have blood, poop or body fluids on them, using antibacterial cleaning solutions such as Lysol wipes, bleach, cleansers, etc. If clothing or bedding come into contact with blood, poop or body fluids, they should be washed immediately. Follow the directions on the laundry detergent and clothing labels but hot water is recommended when possible. Stopping home isolation precautions: If possible, consult your doctor before stopping home isolation precautions. According to the CDC, you can discontinue home isolation precautions when you have met both of these criteria: Your fever and respiratory symptoms have been gone for 24 hours without the use of any medicines like ibuprofen (Motrin) (more content not included)... Normal [facility] BASIC METABOLIC PANELon 11-07 Anion gap [Moles/Vol] 15 mmol/L Normal 10 - 20 [facility] Comment on above: Performed By: #### B #### [address] [address] Calcium [Mass/Vol] 9.7 mg/dL Normal 8.6 - 10.3 [facility] Comment on above: Performed By: #### B MP #### [address] [address] Chloride [Moles/Vol] 99 mmol/L Normal 98 - 107 [facility] Comment on above: Performed By: #### B MP #### [address] [address] Creatinine [Mass/Vol] 0.64 mg/dL Normal 0.50 - 1.05 [facility] Comment on above: Performed By: #### B MP #### [address] [address] GFR- AM. >60 Normal >60 [facility] Comment on above: Result Comment: CALC ULATIONS OF ESTIMATED GFR ARE PERFORMED USING THE MDRD STUDY EQUATION FOR THE IDMS-TRACEABLE CREATININE METHODS. CLIN CHEM 2007;53:766-72 Performed By: #### B MP #### [address] [address] GFR-NON AM. >60 Normal >60 [facility] Comment on above: Performed By: #### B MP #### [address] [address] Glucose [Mass/Vol] 105 mg/dL High 74 - 99 [facility] Comment on above: Performed By: #### B MP #### [address] [address] HCO3 (Bld) [Moles/Vol] 30 mmol/L Normal 21 - 32 [facility] Comment on above: Performed By: #### B MP #### [address] [address] Potassium [Moles/Vol] 3.7 mmol/L Normal 3.5 - 5.3 [facility] Comment on above: Performed By: #### B MP #### [address] [address] Sodium [Moles/Vol] 140 mmol/L Normal 136 - 145 [facility] Comment on above: Performed By: #### B MP #### [facility] [address] [facility] [place] [address] Urea nitrogen [Mass/Vol] 18 mg/dL Normal 6 - 23 [facility] Comment on above: Performed By: #### B MP #### [facility] [address] [facility] [place] [address] Metabolic Panelon 11-21-2020 Anion gap [Moles/Vol] 15 mmol/L 10 - 20 [facility]- [facility] Work Phone: Comment on above: Ordering Provider: Daniela REBOLLEDO [address] Calcium [Mass/Vol] 9.7 mg/dL 8.6 - 10.3 [facility] Work Phone: Comment on above: Ordering Provider: Daniela REBOLLEDO [address] Chloride [Moles/Vol] 99 mmol/L 98 - 107 [facility] Work Phone: Comment on above: Ordering Provider: Daniela REBOLLEDO [address] CO2 [Moles/Vol] 30 mmol/L 21 - 32 [facility]-Surger y-S [facility] Work Phone: Comment on above: Ordering Provider: Daniela REBOLLEDO [address] Creatinine [Mass/Vol] 0.64 mg/dL See Below [facility] Work Phone: Comment on above: Reference Range: 0.5 0 - 1.05 Ordering Provider: Daniela REBOLLEDO [address] Glucose [Mass/Vol] 105 mg/dL above high threshold 74 - 99 NM-Cffbyvd-S [facility] Work Phone: Comment on above: Ordering Provider: Daniela REBOLLEDO [address] Potassium [Moles/Vol] 3.7 mmol/L 3.5 - 5.3 [facility]- [facility] Work Phone: Comment on above: Ordering Provider: Daniela REBOLLEDO [address] Sodium [Moles/Vol] 140 mmol/L 136 - 145 [facility] cinda-S [facility] Work Phone: [phone] Comment on above: Ordering Provider: Daniela REBOLLEDO [address] Urea nitrogen [Mass/Vol] 18 mg/dL 6 - 23 YW-Glqlzwj-K [facility] Work Phone: [phone] Comment on above: Ordering Provider: Daniela LUND KESHA [address] Otheron 11-21-2020 >60 >60 JP-Espcnia-L [facility] Work Phone: [phone] Comment on above: CALCULATIONS OF ASHA MATED GFR ARE PERFORMED USING THE MDRD STUDY EQUATION FOR THE IDMS-TRACEABLE CREATININE METHODS. CLIN CHEM 2007;53:766-72 Ordering Provider: Daniela HOWARDIndia KESHA [address] [phone] UZ-Mjxsqwt-I [facility] Work Phone: [phone] DG-Htpgwjr-M [facility] Work Phone: 51 Sinus rhythm with 1s t degree AV block OL-Hvcxqtm-S [facility] Work Phone: [phone] [email or web address] ?RetrieveTestByDateTime?P hwhmvbXH=[id number]&Date=1 03-07-2021&Time=11%3a49%3a 35%3a00&TestType=ECG&Site =12&OutputType=PDF&Ext=PD F DH-Ucoatrw-G [facility] Work Phone: [phone] BW-Uyizjsw-D [facility] Work Phone: [phone] QK-Kwrgqaw-O [facility] Work Phone: [phone] JG-Hvllrzp-Q [facility] Work Phone: [phone] UB-Lwzhnai-Q [facility] Work Phone: [phone] NF-Hmyjfoe-W [facility] Work Phone: [phone] TD-Cdlbovp-S [facility] Work Phone: [phone] WC-Luynpex-U [facility] Work Phone: 1 AS-Dwehyuy-N [facility] Work Phone: [phone] FW-Cqngrus-U [facility] Work Phone: [phone] Z[facility] Work Phone: [phone] [facility] Work Phone: Abnormal TJ[facility]Vdzhkvq[facility] Work Phone: Initial Visit (General Surge ry)on 10-23-2020 Initial Visit (General Surgery) Diagnoses/Problems Malignant melanoma of right upper arm (172.6) (C43.61) Patient Discussion/Summary 69-year-old woman with 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 I discussed with her that the standard of care in this situation is wide excision with sentinel lymph node biopsy in order to obtain accurate staging and inform appropriate treatment. She underwent initial wide excision without sentinel lymph node biopsy, and with negative margins reexcision is not necessary. I recommended sentinel lymph node biopsy at this point and discussed with her the procedure itself as well as the potential risks and complications of surgery. We also discussed potential outcomes including what the implications of a negative and positive sentinel node would be. We will plan for surgery at [facility] after the new year. Preadmission testing will be obtained. Dictation software was used in the creation of this note and not corrected for typographical or grammatical errors Chief Complaint A telephone visit (audio only) between the patient (at the originating site) and the provider (at the distant site) was utilized to provide this telehealth service. Verbal consent was requested and obtained from TOSHA MCNEAL on this date, 10/23/2020 08:30 AM , for a telehealth visit. Right arm melanoma History of Present [id number] woman referred to me by Dr. Nunez for consideration of sentinel lymph node biopsy in the setting of right arm pT3b melanoma. She states that she had a lesion on her upper right arm that began to weep after she bumped it. Biopsy showed ulcerated nodular malignant melanoma with Breslow thickness at least 2.1 mm and 2 mitoses per square millimeter. She underwent 2 cm margin excision which demonstrated clear margins. She was seen by Dr. Nunez in follow-up and on his clinical exam had no evidence of right axillary lymphadenopathy. She is referred to me for consideration of sentinel lymph node biopsy. She has no personal history of skin cancer Past medical history arthritis, hypertension, hyperlipidemia, diabetes, gout, osteoporosis Past surgical history rotator cuff repair, tubal ligation, eye surgery Family history no family history of melanoma Social history never smoker, , lives in the [facility] Medications include Ocuvite eyedrops, alendronate, amlodipine, carvedilol, dulaglutide, hydrochlorothiazide, insulin, lisinopril, metformin, potassium chloride, rosuvastatin, aspirin, empagliflozin Physical Exam Telephone visit, and I could not examine her Time Time Stamp_UH: Time Spent With Patient: 12 minutes of which greater than 50 percent was spent counseling and or coordinating care. Signatures Electronically signed by : Cedrick Berger MD; Oct 23 2020 10:45AM EST (Author) Normal [employer]works Vital Signs Date Time Vital Sign Value Performing Clinician Facility 12-23-2023 09:37-0500 Body height 152.4 cm [employer] Phone: [facility] 12-23-2023 09:37-0500 Body mass index (BMI) [Ratio] 41.46 kg/m2 [employer] [facility] 12-23-2023 09:37-0500 Body temperature 98.49 [degF] [employer] [facility] 12-23-2023 09:37-0500 Body weight 96.3 kg [employer] Phone: [facility] 12-23-2023 09:37-0500 Diastolic blood pressure 50 mm[Hg] [employer] [facility] 12-23-2023 09:37-0500 Heart rate 65 /min [employer] [facility] 12-23-2023 09:37-0500 SaO2% (BldA) [Mass fraction] 95 % Wild Furlong DO Work Phone: [facility] 12-23-2023 09:37-0500 Systolic blood pressure 140 mm[Hg] Wild Furlong DO Work Phone: [facility] 12-15-2023 10:17-0500 Body height 152.4 cm DO Wild Furlong Work Phone: [facility] 12-15-2023 10:17-0500 Body mass index (BMI) [Ratio] 41 kg/m2 DO Wild Furlong Work Phone: [facility] 12-15-2023 10:17-0500 Body temperature 97.3 [degF] DO Wild Furlong Work Phone: [facility] 12-15-2023 10:17-0500 Body weight 95.25 kg DO Wild Furlong Work Phone: [facility] 12-15-2023 10:17-0500 Diastolic blood pressure 73 mm[Hg] DO Wild Furlong Work Phone: [facility] 12-15-2023 10:17-0500 Heart rate 55 /min DO Wild Furlong Work Phone: [facility] 12-15-2023 10:17-0500 Respiratory rate 16 /min DO Wild Furlong Work Phone: [facility] 12-15-2023 10:17-0500 Systolic blood pressure 150 mm[Hg] DO Wild Furlong Work Phone: [facility] 08-11-2023 10:23-0400 Body temperature 97.2 [degF] DO Wild Furlong Work Phone: [facility] 08-11-2023 10:23-0400 Body weight 99.79 kg DO Wild Furlong Work Phone: [facility] 08-11-2023 10:23-0400 Diastolic blood pressure 77 mm[Hg] DO Wild Furlong Work Phone: [facility] 08-11-2023 10:23-0400 Heart rate 56 /min DO Wild Furlong Work Phone: [facility] 08-11-2023 10:23-0400 Respiratory rate 16 /min DO Wild Furlong Work Phone: [facility] 08-11-2023 10:23-0400 SaO2% (BldA) [Mass fraction] 95 % DO Wild Furlong Work Phone: [facility] 08-11-2023 10:23-0400 Systolic blood pressure 155 mm[Hg] DO Wild Furlong Work Phone: [facility] 04-13-2023 09:19-0400 Body temperature 97.9 [degF] DO Wild Furlong Work Phone: [facility] 04-13-2023 09:19-0400 Body weight 99.33 kg DO Wild Furlong Work Phone: [facility] 04-13-2023 09:19-0400 Diastolic blood pressure 67 mm[Hg] DO Wild Furlong Work Phone: [facility] 04-13-2023 09:19-0400 Heart rate 64 /min DO Wild Furlong Work Phone: [facility] 04-13-2023 09:19-0400 Respiratory rate 16 /min DO Wild Furlong Work Phone: [facility] 04-13-2023 09:19-0400 SaO2% (BldA) [Mass fraction] 97 % DO Wild Furlong Work Phone: [facility] 04-13-2023 09:19-0400 Systolic blood pressure 148 mm[Hg] DO Wild Furlong Work Phone: [facility] 09-23-2022 08:25-0500 Body temperature 97.8 [degF] DO Wild Furlong Work Phone: [facility] 09-23-2022 08:25-0500 Body weight 99.9 kg DO Wild Furlong Work Phone: [facility] 09-23-2022 08:25-0500 Diastolic blood pressure 66 mm[Hg] DO Wild Furlong Work Phone: [facility] 09-23-2022 08:25-0500 Heart rate 68 /min DO Wild Furlong Work Phone: [facility] 09-23-2022 08:25-0500 Respiratory rate 16 /min DO Wild Furlong Work Phone: [facility] 09-23-2022 08:25-0500 SaO2% (BldA) [Mass fraction] 94 % DO Wild Furlong Work Phone: [facility] 09-23-2022 08:25-0500 Systolic blood pressure 153 mm[Hg] DO Wild Furlong Work Phone: [facility] 07-01-2022 10:32-0400 Body temperature 97.8 [degF] DO Wild Furlong Work Phone: [facility] 07-01-2022 10:32-0400 Body weight 99.33 kg DO Wild Furlong Work Phone: [facility] 07-01-2022 10:32-0400 Diastolic blood pressure 75 mm[Hg] DO Wild Furlong Work Phone: [facility] 07-01-2022 10:32-0400 Heart rate 55 /min DO Wild Furlong Work Phone: [facility] 07-01-2022 10:32-0400 Respiratory rate 16 /min DO Wild [employer]long Work Phone: [facility] 07-01-2022 10:32-0400 SaO2% (BldA) [Mass fraction] 98 % DO Wild Furlong Work Phone: [facility] 07-01-2022 10:32-0400 Systolic blood pressure 154 mm[Hg] DO Wild Furlong Work Phone: [facility] 03-31-2022 13:24-0400 Body temperature 97 [degF] DO WildPerklong Work Phone: [facility] 03-31-2022 13:24-0400 Body weight 98.42 kg DO Wild [employer]ankinglong Work Phone: [facility] 03-31-2022 13:24-0400 Diastolic blood pressure 74 mm[Hg] DO Wild Q2ebankinglong Work Phone: [facility] 03-31-2022 13:24-0400 Heart rate 62 /min DO [employer]Perklong Work Phone: [facility] 03-31-2022 13:24-0400 Respiratory rate 16 /min DO [employer]Perklong Work Phone: [facility] 03-31-2022 13:24-0400 SaO2% (BldA) [Mass fraction] 96 % DO [employer]Perklong Work Phone: [facility] 03-31-2022 13:24-0400 Systolic blood pressure 150 mm[Hg] DO [employer]Perklong Work Phone: [facility] 10-01-2020 10:47-0500 Body height 157.99 cm DO Wild [employer]ankinglong Work Phone: [facility] 1950 00:00-0500 >na< Obdulio Flowers Dept. of Adriano matology Encounters Encounter Date Encounter Type Care Provider Facility Start: 12-26-2023 End: 12-26-2023 ambulatory IRMA CORTEZ Not Available Start: 12-26-2023 Refill Wild recinos DO [facility] Start: 12-23-2023 End: 12-23-2023 ambulatory WILD CENTENO [facility] Start: 12-23-2023 End: 12-23-2023 Office outpatient visit 15 minutes Wild Centeno DO Work Phone: [facility] Comment on above: Acute gout due to re nal impairment involving toe of right foot (Primary Dx); 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 ([facility]) Start: 12-21-2023 End: 12-22-2023 ambulatory IRMA CORTEZ Not Available Start: 12-21-2023 End: 12-21-2023 Admission to same day surgery center Irma Cortez TAILOR APPRENTICE [facility] Comment on above: Aftercare following left knee joint replacement surgery (Primary Dx); Acute pain of left knee; Stiffness of left knee; Primary osteoarthritis of left knee Start: 12-21-2023 End: 12-21-2023 ambulatory Irma Cortez TAILOR APPRENTICE [facility] Start: 12-21-2023 Bamboo flowsheet Irma Cortez TAILOR APPRENTICE [facility] Start: 12-21-2023 Bamboo flowsheet Irma Cortez TAILOR APPRENTICE [facility] Start: 12-19-2023 End: 12-19-2023 Admission to same day surgery center Shan Haskins TAILOR APPRENTICE [facility] Comment on above: Aftercare following left knee joint replacement surgery (Primary Dx); Acute pain of left knee; Stiffness of left knee; Primary osteoarthritis of left knee Start: 12-19-2023 End: 12-20-2023 ambulatory Shan Haskins TAILOR APPRENTICE [facility] Start: 12-19-2023 Bamboo flowsheet Shan Haskins PT A [facility] Start: 12-19-2023 Bamboo flowsheet Shan Haskins PT A [facility] Start: 12-15-2023 End: 12-15-2023 Patient encounter procedure DO Wild Furlong [facility] Work Phone: Start: 12-15-2023 End: 12-15-2023 ambulatory DO Wild Furlong Work Phone: [facility] Work Phone: Start: 12-15-2023 Registered Recurring DO Wild Furlong Work Phone: [facility] Work Phone: Start: 12-14-2023 End: 12-14-2023 ambulatory IRMA CORTEZ Not Available Start: 12-14-2023 End: 12-14-2023 Admission to same day surgery center Irma Cortez TAILOR APPRENTICE [facility] Comment on above: Aftercare following left knee joint replacement surgery (Primary Dx); Acute pain of left knee; Stiffness of left knee; Primary osteoarthritis of left knee Start: 12-14-2023 End: 12-14-2023 ambulatory Irma Cortez TAILOR APPRENTICE [facility] Start: 12-14-2023 Bamboo flowsheet Irma Tothy TAILOR APPRENTICE [facility] Start: 12-14-2023 Bamboo flowsheet Irma Tothy TAILOR APPRENTICE [facility] Start: 12-13-2023 End: 12-13-2023 ambulatory Wild Furlong Facility:[facility] Start: 12-13-2023 Registered Recurring DO Wild Furlong Work Phone: [facility] Work Phone: Start: 12-13-2023 End: 12-13-2023 ambulatory DO Wild Furlong Work Phone: [facility] Work Phone: Start: 12-13-2023 End: 12-13-2023 Patient encounter procedure DO Wild Furlong Work Phone: [facility] Work Phone: Start: 2023 End: 2023 ambulatory IRMA KELBLEY Not Available Start: 12-07-2023 End: 12-08-2023 ambulatory IRMA KELBLEY Not Available Start: 12-05-2023 End: 12-05-2023 ambulatory IRMA KELBLEY Not Available Start: 12-02-2023 End: 12-02-2023 ambulatory IRMA MESA [facility] Start: 12-02-2023 End: 12-02-2023 ambulatory IRMA KELBLEY Not Available Start: 11-30-2023 End: 11-30-2023 ambulatory IRMA KELBLEY Not Available Start: 11-25-2023 End: 11-25-2023 ambulatory IRMA KELBLEY Not Available Start: 11-23-2023 End: 11-23-2023 ambulatory IRMA KELBLEY Not Available Start: 11-21-2023 End: 11-21-2023 ambulatory IRMA KELBLEY Not Available Start: 11-09-2023 End: 11-09-2023 ambulatory Aly Higgins MD Facility:[facility] Start: 11-08-2023 End: 11-08-2023 ambulatory IRMA KELBLEY Not Available Start: 11-04-2023 End: 11-04-2023 ambulatory IRMA KELBLEY Not Available Start: 11-02-2023 End: 11-02-2023 ambulatory IRAM KELBLEY Not Available Start: 11-01-2023 End: 11-02-2023 ambulatory IRMA KELBLEY Not Available Start: 10-28-2023 End: 10-28-2023 ambulatory VIRGINIA MITCHELL Not Available Start: 10-26-2023 End: 10-26-2023 ambulatory VIRGINIA MITCHELL Not Available Start: 10-24-2023 End: 10-24-2023 ambulatory AMAN YU Not Available Start: 10-03-2023 End: 10-04-2023 ambulatory [facility] Start: 09-26-2023 End: 09-26-2023 ambulatory AMAN YU Not Available Start: 09-08-2023 End: 09-13-2023 ambulatory [facility]Y Agrawal [facility] Start: 08-29-2023 ambulatory [facility] Start: 08-29-2023 Encounter for other preprocedural examination [facility] Start: 08-11-2023 End: 08-11-2023 ambulatory DO Wild Furlong Work Phone: [facility] Work Phone: Start: 08-11-2023 End: 08-11-2023 Registered Recurring DO Wild Furlong Work Phone: [facility] Work Phone: Start: 05-17-2023 End: 05-17-2023 ambulatory [facility] Start: 04-13-2023 End: 04-13-2023 ambulatory DO Wild Furlong Work Phone: [facility] Work Phone: Start: 04-13-2023 End: 04-13-2023 Registered Recurring DO Wild Furlong Work Phone: [facility] Work Phone: Start: 03-03-2023 End: 03-04-2023 ambulatory WILD G FURLONG Facility:[facility] Start: 09-23-2022 End: 09-23-2022 ambulatory DO Wild Furlong Work Phone: [facility] Work Phone: Start: 09-23-2022 End: 09-23-2022 Registered Recurring DO Wild Furlong [facility] Start: 08-26-2022 End: 08-27-2022 ambulatory WILD G FURLONG Facility:[facility] Start: 08-11-2022 End: 08-12-2022 ambulatory WILD G FURLONG Facility:[facility] Start: 07-01-2022 End: 07-01-2022 Registered Recurring DO Wild Furlong [facility] Start: 04-29-2022 End: 04-30-2022 ambulatory ROBERT LONG Facility:[facility] Start: 03-31-2022 End: 03-31-2022 Registered Recurring DO Wild Q2ebankinglong [facility] Start: 12-16-2020 Obdulio Flowers Dep t. of Dermatology Procedures Date Procedure Procedure Detail Performing Clinician Start: 12-23-2023 Adult depression scr eening assessment Wild Furlong DO Work Phone: Start: 12-13-2023 Computed tomography of abdomen and pelvis with contrast DO Wild Q2ebankinglong Work Phone: Start: 12-13-2023 CT of thorax with contrast DO Wild Furlong Work Phone: Start: 12-13-2023 Ultrasonography of limb DO [employer]Perklong Work Phone: Start: 09-01-2023 Diabetic retinal eye exam Wild Furlong DO Work Phone: Start: 08-09-2023 Ultrasonography of limb DO Wild [employer]ankinglong Work Phone: Start: 05-13-2023 Mammography Irma Julio moralesley TAILOR APPRENTICE Start: 04-07-2023 Ultrasonography of limb DO Wild [employer]long Work Phone: Start: 03-14-2023 Microalbumin [Mass/v olume] in Urine by Test strip Wild Furlong DO Work Phone: Start: 12-21-2022 Computed tomography of abdomen and pelvis with contrast DO Wild Furlong Work Phone: Start: 12-21-2022 CT of thorax with contrast DO Wild Furlong Work Phone: Start: 09-21-2022 Ultrasonography of limb DO Wild [employer]ankinglong Work Phone: Start: 06-29-2022 Computed tomography of abdomen and pelvis with contrast DO Wild Furlong Work Phone: Start: 06-29-2022 CT of thorax with contrast DO [employer] Work Phone: Start: 03-29-2022 Ultrasonography of limb DO [employer] Work Phone: Start: 12-28-2021 Computed tomography of abdomen and pelvis with contrast DO [employer] Work Phone: Start: 12-28-2021 CT of thorax with contrast DO [employer] Work Phone: Start: 09-24-2021 Ultrasonography of limb DO [employer] Work Phone: Start: 06-19-2021 MRI of head DO [employer] Work Phone: Start: 06-17-2021 Positron emission to mography with computed tomography DO [employer] Work Phone: Start: 03-27-2021 Ultrasound procedure on topographic region DO [employer] Work Phone: Start: 12-16-2020 Obdulio Flowers Cataract surgery Wild Fur elena Ligation of fallopian tube D josette Q2ebankinglong Repair of musculoten dinous cuff of shoulder [employer] Plan of Treatment Date Care Activity Detail Author Start: 03-25-2026 Screening for malign ant neoplasm of colon [facility] Start: 12-23-2024 Adult BMI Screening Adult BMI Screen ing [facility] Start: 12-23-2024 Depression Screening Depression Scre ening [facility] Start: 12-23-2024 Fall Risk Screening Fall Risk Screen ing [facility] Start: 12-23-2024 Tobacco Screening Tobacco Screening [facility] Start: 09-12-2024 Adult BMI Screening Adult BMI Screen ing [facility] Start: 09-12-2024 Depression Screening Depression Scre ening [facility] Start: 09-12-2024 Tobacco Screening Tobacco Screening [facility] Start: 09-01-2024 Glaucoma screening Diabetic Op hthalmology Exam [facility] Start: 07-12-2024 Fall Risk Screening Fall Risk Screen ing [facility] Start: 05-13-2024 Screening for malign ant neoplasm of breast Mammogram [facility] Start: 03-20-2024 End: 03-20-2024 Patient encounter procedure 03/20/2024 11:10 AM EDT Office Visit [facility] [address] [place] [address] [facility] Family [facility] Start: 03-14-2024 Diabetic foot examination Diabetic Foot Exam [facility] Start: 03-14-2024 Urine screening for protein Urine Microalbumin [facility] Start: 03-10-2024 Medicare Annual Well ness Visit Medicare Annual Wellness Visit [facility] Start: 01-11-2024 End: 01-11-2024 Patient encounter procedure 01/11/2024 10:50 AM EST Office Visit [facility] [address] [place] [address] Wild Centeno DO [address], [facility] [place] [address] [facility] Start: 12-28-2023 End: 12-28-2023 ambulatory 12/28/2023 2:30 PM EST Treatment [facility] [address] [place] [address] Irma Cortez TAILOR APPRENTICE [facility] Start: 12-26-2023 End: 12-26-2023 ambulatory 12/26/2023 2:30 PM EST Treatment [facility] [address] [place] [address] Irma Cortez TAILOR APPRENTICE [facility] Start: 12-21-2023 End: 12-21-2023 ambulatory 12/21/2023 2:30 PM EST Treatment [facility] [address] [place] [address] Irma Cortez TAILOR APPRENTICE [facility] Start: 12-19-2023 End: 12-19-2023 ambulatory [facility] Comment on above: Arrived Start: 12-14-2023 End: 12-14-2023 ambulatory 12/14/2023 2:30 PM EST Treatment [facility] [address] [place] [id number] Irma Cortez, TAILOR APPRENTICE Arrived [facility] Comment on above: Arrived Start: 07-08-2023 COVID-19 Vaccine () COVID-19 Vaccine () [facility] Start: 09-18-2022 DTaP,Tdap and Td Vaccines (2 - Td or Tdap) DTaP,Tdap and Td Vaccines (2 - Td or Tdap) [facility] Start: 12-08-2021 [facility] Start: 10-06-2021 [facility] Start: 07-15-2021 End: 07-15-2021 [facility] Start: 07-10-2021 [facility] Start: 06-29-2021 [facility] Start: 03-09-2013 Administration of varicella zoster vaccine Zoster (Shingles) Vaccine (1 of 2) [facility] Start: 1968 Adult BMI Follow Up Plan Adult BMI Follow Up Plan [facility] Start: 1950 Screening for malign ant neoplasm of colon [facility] Comprehensive metabo lic 1999 panel - Serum or Plasma [facility] Work Phone: Comprehensive metabo lic 1999 panel - Serum or Plasma [facility] Comprehensive metabo lic 1999 panel - Serum or Plasma [facility] Comprehensive metabo lic 1999 panel - Serum or Plasma [facility] Comprehensive metabo lic 1999 panel - Serum or Plasma [facility] CT Abdomen and Pelvi s W contrast IV [facility] CT Abdomen and Pelvi s W contrast IV [facility] CT Abdomen and Pelvi s W contrast IV [facility] CT Chest W contrast IV [facility] CT Chest W contrast IV [facility] CT Chest W contrast IV [facility] Lactate dehydrogenas e [Enzymatic activity/volume] in Unspecified specimen [facility] Work Phone: Lactate dehydrogenas e [Enzymatic activity/volume] in Unspecified specimen [facility] Extremity [facility] Work Phone: [place] Extremity [facility] US Extremity [facility] Immunizations Immunization Date Immunization Notes Care Provider Fa cili 09-12-2023 Influenza Vaccine, Quadrivalent, Adjuvanted Wild Furlong DO Work Phone: [facility] 10-08-2022 Influenza, High-dose , Quadrivalent Wild Furlong DO Work Phone: [facility] 10-12-2020 influenza, injectabl e, quadrivalent, contains preservative Wild Furlong DO Work Phone: [facility] 09-03-2019 Influenza, injectabl e, Madin [place] Canine Kidney, quadrivalent with preservative Wild Furlong DO Work Phone: [facility] 10-24-2017 Influenza, injectabl e, Madin [place] Canine Kidney, preservative free, quadrivalent Wild Furlong DO Work Phone: [facility] 10-24-2017 pneumococcal polysaccharide vaccine, 23 valent Wild Furlong DO Work Phone: [facility] 09-05-2016 influenza, seasonal, injectable, preservative free Wild Furlong DO Work Phone: [facility] 08-05-2016 pneumococcal conjuga te vaccine, 13 valent Wild Furlong DO Work Phone: [facility] 09-07-2015 influenza, seasonal, injectable, preservative free Wild Furlong DO Work Phone: [facility] 01-12-2013 varicella virus vaccine Denn is Furlong DO Work Phone: [facility] 01-12-2013 zoster vaccine, unspecified formulation Wild Furlong DO [facility] 09-18-2012 tetanus toxoid, redu bret diphtheria toxoid, and acellular pertussis vaccine, adsorbed Wild Centeno DO Work Phone: [facility] 1950 pneumococcal conjuga te vaccine, 7 valent Obdulio Flowers 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 Payers Date Payer Category Payer Self-pay [id number] 2018 Unknown 2014 Medicare 1960 Medicare [id number] 1959 Unknown [id number] 1949 Unknown [id number] 2.16.84 [id number] 1949 Unknown [id number] 2.16.84 [id number] 1949 Unknown [id number] 2.16.84 [id number] 1949 Unknown [id number] 2.16.84 [id number] 1949 Unknown [id number] 2.16.8 [id number] 1949 Unknown [id number] 2.16.8 [id number] 1949 Unknown [id number] 2.16. [id number] 1949 Unknown [id number] 2.16.8 40.1.986388.3.579.2.1286 1950 Unknown [id number] 2.16.84 0.1.971844.3.579.2.1259 1950 Unknown [id number] 2.16.84 0.1.479030.3.579.2.1259 1950 Unknown [id number] 2.16.84 0.1.445118.3.579.2.1259 1950 Unknown [id number] 2.16.84 0.1.746512.3.579.2.1259 1950 Unknown [id number] 2.16.84 0.1.921841.3.579.2.1259 1950 Unknown [id number] 2.16.84 0.1.058355.3.579.2.1259 1950 Unknown [id number] 2.16.84 0.1.458913.3.579.2.1259 1950 Unknown [id number] 2.16.84 0.1.177113.3.579.2.1259 1950 Unknown [id number] 2.16.84 0.1.909304.3.579.2.1259 1950 Unknown [id number] 2.16.84 0.1.421035.3.579.2.1259 1950 Unknown [id number] 2.16.84 0.1.858162.3.579.2.1259 1950 Unknown [id number] 2.16.84 0.1.113352.3.579.2.1259 1950 Unknown [id number] 2.16.840 .1.342084.3.579.2.1259 1950 Unknown [id number] 2.16.840 .1.560850.3.579.2.1259 1950 Unknown [id number] 2.16.840 .1.373404.3.579.2.1259 1950 Unknown [id number] 2.16.840 .1.077322.3.579.2.1259 1950 Unknown [id number] 2.16.840 .1.389171.3.579.2.1259 1950 Unknown [id number] 2.16.840 .1.951624.3.579.2.1259 1949 Unknown [id number] 2.16.840 .1.368721.3.579.2.1259 1950 Unknown [id number] 2.16.840 .1.758539.3.579.2.1259 Unknown [facility] [id number] Unknown [id number] 2.16.8 40.1.003028.3.579.2.531 Unknown [id number] 2.16.8 40.1.134407.3.579.2.531 Social History Date Type Detail Facility Assertion Tobacco smoking consumption unknown (finding) [facility] Work Phone: Start: 12-16-2020 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 Start: 1950 Sex Assigned At Female [facility] Start: 03-31-2022 End: 09-06-2022 Tobacco smoking status NHIS Never smoked tobacco (finding) [facility] Start: 09-06-2022 End: 11-04-2023 Tobacco use and exposure Smokeless tobacco non-user [facility] Start: 11-04-2023 End: 12-23-2023 Alcohol intake Ex-drinker (finding) [facility] Start: 12-18-2020 End: 11-04-2023 History of Social function [facility] Start: 12-18-2020 End: 11-04-2023 Tobacco use panel [facility] Start: 11-04-2023 Alcohol Comment Caffeine: 1-2 cups/day [facility] Start: 1950 Sex Assigned At Not on file [facility] Do you belong to any clubs or organizations such as mandaen groups, unions, fraternal or athletic groups, or school groups? Yes [facility] Are you now , , , , never or living with a partner? [facility] How often to you hav e a drink containing alcohol? Never [facility] How many standard dr inks containing alcohol do you have on a typical day? Patient does not drink [facility] Do you feel stress - tense, restless, nervous, or anxious, or unable to sleep at night because your mind is troubled all the time - these days [OSQ] Not at all [facility] Medical Equipment Procedure Code Equipment Code Equipment Origin al Text Equipment Identifier Dates Repair, fracture, orbit PLATE DS RESORB TRIANGLE 25MM FDA Start: 04-13-2019 Repair, fracture, orbit PLATE DS RESORB TRIANGLE 25MM FDA Start: 04-13-2019 Repair, fracture, orbit PLATE DS RESORB TRIANGLE 25MM FDA Start: 04-13-2019 Repair, fracture, orbit PLATE DS RESORB TRIANGLE 25MM FDA Start: 04-13-2019 Repair, fracture, orbit PLATE DS RESORB TRIANGLE 25MM FDA Start: 04-13-2019 Repair, fracture, orbit PLATE DS RESORB TRIANGLE 25MM FDA Start: 04-13-2019 Repair, fracture, orbit PLATE DS RESORB TRIANGLE 25MM FDA Start: 04-13-2019 Accu-Chek María Elena Plus test strips TEST once daily [id number] Goals Date Patient Goal Desired Activity /State Functional Status Date Assessment Result Facility NEGATED: Highlighted row Functional performance Functional status health issues are not documented Disease [id number] Mental Status Date Assessment Result Facility NEGATED: Highlighted row Cognitive function [Interpretation] Cognitive status health issues are not documented Disease [facility] Work Phone: Clinical Notes 10-01-2020 to 12-23-2023 [place], - 12/23/2023 9:40 AM EST Note Date & Type Note Facility 12-23-2023 History of Present illness Narrative Subjective Patient ID: Tosha Mcneal is a 73 y.o. female. Alpa presents today for a flare-up of gout. She has had it before many times. She used to take allopurinol but stopped it. She has not sure why. She still had the bottle so she started it back yesterday. It woke her up in the middle of the night a couple weeks ago. She called her orthopedic doctor who recommend that she take Motrin. She was also taking hydrocodone for her wound dehiscence surgery and that caused nausea so she stopped it. It hurts to walk on her foot. Pain keeps her awake at night. The following portions of the patient's history were reviewed and updated as appropriate: allergies, current medications, past family history, past medical history, past social history, past surgical history, problem list, and medication reconciliation was completed including current medication and post discharge medication. Review of Systems Objective Physical Exam Constitutional: Appearance: She is obese. Musculoskeletal: Left knee: No effusion or erythema. No tenderness. Right foot: Swelling, prominent metatarsal heads (1st) and tenderness present. No deformity or bunion. Comments: Knee incision looks good. First MTP joint is red and swollen consistent with acute gout Neurological: Mental Status: She is alert. Assessment/Plan Tosha was seen today for gout in big toe. Diagnoses and all orders for this visit: Acute gout due to renal impairment involving toe of right foot - colchicine (COLCRYS) 0.6 mg tablet; Take 1 tablet (0.6 mg total) by mouth in the morning and 1 tablet (0.6 mg total) before bedtime. Do all this for 4 days. We discussed different treatment strategies for acute gout including colchicine, Motrin, Indocin and prednisone. They all have their own risks. We will do colchicine 1 tablet twice a day for 3 days. Signs and symptoms of colchicine toxicity discussed. There is a drug interaction with Coreg and this was discussed with her. She is willing to try. She has a problem we will we will up for prednisone next. She did not tolerate the Motrin. She does not recall what issue she had with Indocin. Start allopurinol after the gout flare subsides. Can possibly have a worsening of symptoms initially with allopurinol but should improve over time. She should stay on it emt intermediate. 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 ([facility]) GFR reviewed and is stable at 55. No dosing adjustments required. Other orders - allopurinoL (ZYLOPRIM) 100 mg tablet; Take 1 tablet (100 mg total) by mouth in the morning. Start after flare up resolves. documented in this encounter [facility] Evaluation note Diagnosis Acute gout due to renal impairment involving toe of right foot- Primary 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 ([facility]) documented in this encounter [facility]01-26-2024 NoteContinue lasix 20 mg daily, stop norvasc, [facility] NoteDOE and BLE edema will order echocardiogram to assess cardiac function, diastolic function and valvular function RTC after echo completedUnWilson [facility]01-26-2024 Note Hypertension is controlled and hypotensive despite not taking lisinopril 40 mg the last 2 days. Asked pt to stop norvasc and to hold lisinopril if SBP < 100 and she voiced [address] Hospital01-26-2024 Note Continue crestor [address]01-26-2024 Note [facility] CARDIOLOGY PROGRESS NOTE HPI: Tosha Mcneal is a 72 y.o. Patient here for 3 mo follow up HFpEF, hypertension, and hyperlipidemia. She left left knee replacement in Sep 2023. Then in Nov 2023 she had to have knee surgery again due to fall/trauma. PT told her to make us aware that the swelling in that ankle will not go down. She has been out of lisinopril for a few days. Review of Systems Cardiovascular: Positive for leg swelling (LLE). Musculoskeletal: Positive for arthritis and joint pain. All other systems reviewed and are negative. Visit Vitals BP (!) 100/45 (BP Location: Right arm, Patient Position: Sitting) Pulse 61 Ht 1.524 m (5') Wt 95.7 kg (211 lb) SpO2 96% BMI 41.21 kg/m??? Smoking Status Never BSA 2.01 m??? No Known Allergies Medications: Current Outpatient Medications on File Prior to Visit Medication Sig Dispense Refill aspirin 81 mg chewable tablet in the morning. baclofen (Lioresal) 10 mg tablet 10 mg if needed in the morning, at noon, and at bedtime. carvedilol (Coreg) 25 mg tablet Take 25 mg by mouth in the morning and at bedtime. furosemide (Lasix) 20 mg tablet furosemide 20 mg tablet take 1 tablet by mouth once daily 90 tablet 3 insulin NPH and regular human (NovoLIN 70-30 FlexPen U-100) 100 unit/mL (70-30) injection Novolin 70-30 FlexPen U-100 magnesium oxide (Mag-Ox) 400 mg tablet Magnesium metFORMIN (Glucophage) 1,000 mg tablet Take 1,000 mg by mouth with breakfast and with evening meal. rosuvastatin (Crestor) 10 mg tablet rosuvastatin 10 mg tablet take 1 tablet by mouth once daily spironolactone (Aldactone) 25 mg tablet Take 25 mg by mouth in the morning. [DISCONTINUED] amLODIPine (Norvasc) 5 mg tablet Take 5 mg by mouth in the morning. [DISCONTINUED] lisinopril 40 mg tablet lisinopril 40 mg tablet take 1 tablet by mouth once daily [DISCONTINUED] alendronate (Fosamax) 35 mg tablet alendronate 35 mg tablet take 1 tablet by mouth every week No current facility-administered medications on file prior to visit. Physical Exam: Constitutional: Appearance: Normal appearance. Without apparent distress, obese HENT: Head: Normocephalic and atraumatic. Nose: Nose normal. Mouth/Throat: Mouth: Mucous membranes are moist. Eyes: Extraocular Movements: Extraocular movements intact. Conjunctiva/sclera: Conjunctivae normal. Neck: Vascular: No JVD. Cardiovascular: Rate and Rhythm: Normal rate and regular rhythm. Pulses: Dorsalis pedis pulses are 3 on the right side and 3on the left side. Posterior tibial pulses are 3 on the right side and 3 on the left side. Heart sounds: Normal heart sounds, S1 normal and S2 normal. Pulmonary: Effort: Pulmonary effort is normal. Breath sounds: Normal breath sounds. Abdominal: General: Bowel sounds are normal. Palpations: Abdomen is soft. Musculoskeletal: General: Normal range of motion. Cervical back: Normal range of motion. Right lower le-2 + edema. Left lower le+pitting edema. Skin: General: Skin is warm and dry. Capillary Refill: Capillary refill takes less than 2 seconds. Neurological: General: No focal deficit present. Mental Status: She is alert and oriented to person, place, and time. Psychiatric: Mood and Affect: Mood normal. Behavior: Behavior normal. Thought Content: Thought content normal. Judgment: Judgment normal. Labs: Renal function and K+ were slightly elevated 02/2023, Liver function normal 03/04/23 Chol 129, HDL 43, trig 258, LDL 34.4- well controlled Last lab values have been reviewed CV Testin11/26/2021 TTE No echocardiogram results found for the past 12 months Assessment/Plan: Mixed hyperlipidemia Continue crestor 10 mg daily Essential hypertension Hypertension is controlled and hypotensive despite not taking lisinopril 40 mg the last 2 days. Asked pt to stop norvasc and to hold lisinopril if SBP < 100 and she voiced understanding Dyspnea on exertion FINLEY and BLE edema will order echocardiogram to assess cardiac function, diastolic function and valvular function RTC after echo completed Diastolic dysfunction Continue lasix 20 mg daily, stop norvasc, repeat echocardiogramUniversity [facility]01-[facility]24 NotePatient here for 3 mo follow up HFpEF, hypertension, and hyperlipidemia. She left left knee replacement in Sep 2023. Then in Nov 2023 she had to have knee surgery again due to fall/trauma. PT told her to make us aware that the swelling in that ankle will not go down. She has been out of lisinopril for a few days. Review of Systems Cardiovascular: Positive for leg swelling (LLE). Musculoskeletal: Positive for arthritis and joint pain. All other systems reviewed and are negative.[facility] 08-29-2023 NoteCardiology Clinic Note Subjective Tosha Mcneal is a 72 y.o. year old female patient with a past medical history including HTN, hyperlipidemia, and HFpEF. Patient Active Problem List Diagnosis Arthritis Degeneration of thoracic intervertebral disc Diastolic dysfunction Dyspnea on exertion Essential hypertension 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 (CMS/HCC) Irritable bowel syndrome Malignant melanoma (CMS/HCC) Metabolic syndrome X Mixed hyperlipidemia Morbid obesity (CMS/HCC) Nonalcoholic fatty liver disease Osteoarthritis of knee Post-traumatic osteoarthritis of left wrist Type 2 diabetes mellitus (CMS/HCC) Family History Problem Relation Name Age of Onset Coronary artery disease Father Heart attack Father HPI Tosha Mcneal is a 71 y.o. female with a past medical history including HTN, hyperlipidemia, and HFpEF. Update: 05/17/2023 She is doing well, here for routine follow-up Her potassium level was high on last check, Spironolactone was decreased She denies chest pain, dyspnea, or significant lower extremity edema Update: 08/29/2023 Here for cardiac clearance for left knee replacement She has been doing well from a cardiac standpoint She swims 3-days a week for about an hour and a half at a time Review of Systems Cardiovascular: Negative for chest pain, claudication, dyspnea on exertion, irregular heartbeat, leg swelling, near-syncope, orthopnea, palpitations and paroxysmal nocturnal dyspnea. Objective Visit Vitals BP 141/60 (BP Location: Right arm, Patient Position: Sitting) Pulse 64 Ht 1.524 m (5') Wt 98.9 kg (218 lb) SpO2 92% BMI 42.58 kg/m??? Smoking Status Never BSA 2.05 m??? Physical Exam General: Awake, alert, NAD Pulm: Breath sounds clear to ascultation bilaterally with no wheeze, crackles or rhonchi Cards: Regular rate and rhythm, S1, S2. No S3 or S4 gallop. Murmur: none Abd: Soft, Nontender, physiologic bowel sounds are present Extr: Lower extremity edema: LLE trace, ankle +1 Neuro: A&Ox3, No gross deficits Allergies No Known Allergies Medications Current Outpatient Medications: amLODIPine (Norvasc) 5 mg tablet, Take 5 mg by mouth in the morning., Disp: , Rfl: aspirin 81 mg chewable tablet, in the morning., Disp: , Rfl: carvedilol (Coreg) 25 mg tablet, Take 25 mg by mouth in the morning and at bedtime., Disp: , Rfl: furosemide (Lasix) 20 mg tablet, furosemide 20 mg tablet take 1 tablet by mouth once daily, Disp: 90 tablet, Rfl: 3 insulin NPH and regular human (NovoLIN 70-30 FlexPen U-100) 100 unit/mL (70-30) injection, Novolin 70-30 FlexPen U-100, Disp: , Rfl: lisinopril 40 mg tablet, lisinopril 40 mg tablet take 1 tablet by mouth once daily, Disp: , Rfl: magnesium oxide (Mag-Ox) 400 mg tablet, Magnesium, Disp: , Rfl: metFORMIN (Glucophage) 1,000 mg tablet, Take 1,000 mg by mouth with breakfast and with evening meal., Disp: , Rfl: rosuvastatin (Crestor) 10 mg tablet, rosuvastatin 10 mg tablet take 1 tablet by mouth once daily, Disp: , Rfl: spironolactone (Aldactone) 25 mg tablet, Take 25 mg by mouth in the morning., Disp: , Rfl: alendronate (Fosamax) 35 mg tablet, alendronate 35 mg tablet take 1 tablet by mouth every week, Disp: , Rfl: baclofen (Lioresal) 10 mg tablet, 10 mg if needed in the morning, at noon, and at bedtime., Disp: , Rfl: Recent Labs 03/03/2023 Sodium 140, potassium 5.4, chloride 102, BUN 26, serum creatinine 1.04, estimated GFR 52% total cholesterol 129, HDL 43, triglycerides 258, LDL 34.4 Imaging and other tests Echo: 11/26/2021 Global left ventricular systolic function is difficult to assess but appears preserved; visually estimated ejection fraction 55 to 60%. Cannot comment on regional wall motion abnormalities Mild left ventricular hypertrophy Grade 2 moderate diastolic dysfunction The left atrium is mildly dilated The right ventricle is normal in size and systolic function No significant valvular abnormalities Trivial pericardial effusion Assessment Diagnoses and all orders for this visit: Chronic heart failure with preserved ejection fraction (CMS/HCC) Pre-op evaluation - ECG 12 lead Hyperlipidemia, unspecified hyperlipidemia type Primary hypertension Plan Encounter for preoperative cardiovascular risk stratification Patient is able to do >4 METS without chest pain/shortness of breath. she maintains an active lifestyle swimming 3 times a week without difficulties. Compensated heart failure preserved ejection fraction. ECG here today reveals sinus rhythm without ischemic changes.She is stable to proceed with recommended orthopedic surgery without further cardiac work-up. Okay to hold aspirin for up to 7 days preoperatively as needed. -She reports recent labs within the past week through other specialty services. HFpEF -Compensated NYHA class II. She has mild unilateral left lower (more content not included)...[facility]10-[facility]-2023 NotePatient here for surgery clearance prior to TKA. Doing well from cardiac standpoint, as she denies chest pain, SOB, and palpitations. Her LLE edema is no more than usual she states. Review of Systems Cardiovascular: Positive for leg swelling (LLE, intermittent). Musculoskeletal: Positive for arthritis and joint pain. All other systems reviewed and are negative.[facility] 05-17-2023 NoteCardiology Clinic Note Subjective Tosha Mcneal is a 72 y.o. year old female patient with a past medical history including HTN, hyperlipidemia, and HFpEF. Patient Active Problem List Diagnosis Arthritis Degeneration of thoracic intervertebral disc Diastolic dysfunction Dyspnea on exertion Essential hypertension 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 (CMS/HCC) Irritable bowel syndrome Malignant melanoma (CMS/HCC) Metabolic syndrome X Mixed hyperlipidemia Morbid obesity (CMS/HCC) Nonalcoholic fatty liver disease Osteoarthritis of knee Post-traumatic osteoarthritis of left wrist Type 2 diabetes mellitus (CMS/HCC) Family History Problem Relation Name Age of Onset Coronary artery disease Father Heart attack Father HPI Tosha Mcneal is a 71 y.o. female with a past medical history including HTN, hyperlipidemia, and HFpEF. Update: 05/17/2023 She is doing well, here for routine follow-up Her potassium level was high on last check, Spironolactone was decreased She denies chest pain, dyspnea, or significant lower extremity edema Review of Systems Cardiovascular: Negative for chest pain, claudication, dyspnea on exertion, irregular heartbeat, leg swelling, near-syncope, orthopnea, palpitations and paroxysmal nocturnal dyspnea. Objective Visit Vitals BP 108/54 (BP Location: Left arm, Patient Position: Sitting) Pulse 63 Ht 1.524 m (5') Wt 96.2 kg (212 lb) SpO2 93% BMI 41.40 kg/m??? Smoking Status Never BSA 2.02 m??? Physical Exam General: Awake, alert, NAD Pulm: Breath sounds clear to ascultation bilaterally with no wheeze, crackles or rhonchi Cards: Regular rate and rhythm, S1, S2. No S3 or S4 gallop. Murmur: none Abd: Soft, Nontender, physiologic bowel sounds are present Extr: Lower extremity edema: None. Skin: warm, dry, well perfused Neuro: A&Ox3, No gross deficits Allergies No Known Allergies Medications Current Outpatient Medications: alendronate (Fosamax) 35 mg tablet, alendronate 35 mg tablet take 1 tablet by mouth every week, Disp: , Rfl: amLODIPine (Norvasc) 5 mg tablet, Take 5 mg by mouth in the morning., Disp: , Rfl: aspirin 81 mg chewable tablet, in the morning., Disp: , Rfl: baclofen (Lioresal) 10 mg tablet, 10 mg if needed in the morning, at noon, and at bedtime., Disp: , Rfl: carvedilol (Coreg) 25 mg tablet, Take 25 mg by mouth in the morning and at bedtime., Disp: , Rfl: furosemide (Lasix) 20 mg tablet, furosemide 20 mg tablet take 1 tablet by mouth once daily, Disp: , Rfl: insulin NPH and regular human (NovoLIN 70-30 FlexPen U-100) 100 unit/mL (70-30) injection, Novolin 70-30 FlexPen U-100, Disp: , Rfl: lisinopril 40 mg tablet, lisinopril 40 mg tablet take 1 tablet by mouth once daily, Disp: , Rfl: magnesium oxide (Mag-Ox) 400 mg tablet, Magnesium, Disp: , Rfl: metFORMIN (Glucophage) 1,000 mg tablet, Take 1,000 mg by mouth with breakfast and with evening meal., Disp: , Rfl: rosuvastatin (Crestor) 10 mg tablet, rosuvastatin 10 mg tablet take 1 tablet by mouth once daily, Disp: , Rfl: spironolactone (Aldactone) 25 mg tablet, Take 25 mg by mouth in the morning., Disp: , Rfl: Recent Labs 03/03/2023 Sodium 140, potassium 5.4, chloride 102, BUN 26, serum creatinine 1.04, estimated GFR 52% total cholesterol 129, HDL 43, triglycerides 258, LDL 34.4 Imaging and other tests Echo: 11/26/2021 Global left ventricular systolic function is difficult to assess but appears preserved; visually estimated ejection fraction 55 to 60%. Cannot comment on regional wall motion abnormalities Mild left ventricular hypertrophy Grade 2 moderate diastolic dysfunction The left atrium is mildly dilated The right ventricle is normal in size and systolic function No significant valvular abnormalities Trivial pericardial effusion Assessment Diagnoses and all orders for this visit: Chronic heart failure with preserved ejection fraction (CMS/HCC) - Basic metabolic panel; Future Hyperlipidemia, unspecified hyperlipidemia type Hypertension, unspecified type Plan HFpEF -Compensated NYHA class II. Will repeat labs to monitor her potassium levels. She is currently maintained on Spironolactone 25 mg. Can also consider adding Farxiga pending labs. 2. Hyperlipidemia -Mild hypertriglyceridemia. Continue Rosuvastatin 10 mg, lifestyle modifications, and diabetes management. 3. Hypertension -Well controlled. She is maintained on Amlodipine 5 mg, Lisinopril 40 mg, and Carvedilol 25 mg twice a day. Follow up in about 6 months (around 11/17/2023). Perry Manuel APRN-[facility] Cardi[facility] MedicineUniversity [facility]als [facility]07-11-2023 NotePatient here for 6 mo follow up HFpEF, hypertension, and hyperlipidemia. She had routine labs in February 2023. Denies chest pain and SOB. Doing very well. Review of Systems Cardiovascular: Positive for leg swelling (LLE, intermittent). Musculoskeletal: Positive for arthritis and joint pain. All other systems reviewed and are negative.[facility] 04-13-2023 Progress note Author Rose Ohara [facility] April 13, 2023 5:59pm Note Date/Time April 13, 2023 9:30a m [facility] [place] [address] Hem/Onc Follow Up Note - OP Signed Patient: Tosha Mcneal MR#: [id number] : 1950 Acct:[id number] Age/Sex: 72 / F Type: REG RCR Copies to: DO Mohan Haddad MD~ Subjective Date/Time of Service: Date of Service: 04/13/2023 Time of Service: 09:29 Chief Complaint: Patient for a 4 month follow up visit and go over labs extremity us and labs HPI: 04/13/2023: Nearly 4 month followup of Stage III melanoma 15 months from end of adjuvant Nivolumab. Last dermatology visit 01/2023 with no new lesions. US of right axilla with no abnormalities. Plan annual CT CAP for restaging unless newsymptoms arise. She is leaving for a cruise to [place] this month. Continue 4 month followup with axillary ultrasound prior to visit, sooner prn. Low complexity 25 minute followup of exam and axillary US. 12/23/2022: Tosha is here for 3-month follow-up and review of 6-month surveillance CT chest abdomen pelvis for restaging stage III melanoma. She completed 1 year of adjuvant Nivolumab in January 2022. No interval changes in medical history and has her scheduled dermatology follow-up in January. No evidence of recurrence on CT chest abdomen pelvis and labs are unremarkable. Tednegritoaria set up her right axillary ultrasound in April 2023 (we will schedule around cruise planned that month). We will defer her next follow-up to 4 months and continue every 4-month axillary ultrasound surveillance with restaging CTs deferred to 1 year unless new symptoms arise. Low complexity visit 25 minutes to review imaging and follow-up plan. 09/23/2022: Tosha is here for 3 month followup and review of exam and surveillance right axillary ultrasound. She was seen by dermatology 1 month agowith no new findings. Right axillary ultrasound does not show any concerning lymph nodes in size or containing a pathologically thickened cortex. Her laboratories are unremarkable and no concerning symptoms off immunotherapy sinceJanuary 2022. Next follow-up with restaging CT chest abdomen pelvis in 3 months, sooner if new concerns arise. Low complexity 20-minute follow-up visit. 07/01/2022: 3 month followup after completing adjuvant nivolumab for stage III right posterior arm melanoma 5 months ago. Unremarkable skin exam on dermatology followup. No adenopathy, followup CT Chest/Abdomen/Pelvis shows no distant metastasis. Next f/u with ultrasound right axilla in 3 months with labs. Low complexity 20 minute visit to review imaging. Low complexity 20 minute followup visit. 03/31/2022: Here for follow-up after last dose of nivolumab adjuvant therapy for stage III right posterior arm melanoma given 01/24/2022. No immunotherapy related toxicities. Recently saw dermatology with no evidence of recurrence. We reviewed her right axillary ultrasound that showed no adenopathy. She will be due for bidirectional imaging with CT chest abdomen pelvis in 3 months and surveillance exam at that time. Low complexity 15-minute visit. 12/30/2021: 3 month followup on Nivolumab adjuvant therapy for stage III right posterior arm melanoma. Continues to have no immunotherapy related toxicities. Continues dermatology followup every [address] CAP without recurrence. One more month of adjuvant Nivolumab then f/u 3 months with CBC, CMP, LDH, and TSH with surveillance axillary US. Low complexity 15 min visit. 09/30/2021: 3 month followup on Nivolumab adjuvant therapy for stage III right posterior arm melanoma. Continues to have no immunotherapy related toxicities. Now following with dermatology at [facility] with no recurrence on skin exam. Surveillance ultrasound right axilla without recurrence. She will have routing f/u with fl in [address] CAP and labs for surveillance on immunotherapy. 06/29/2021: 3 month followup on Nivolumab adjuvant therapy for stage III right posterior arm melanoma. She still notes no infusion reactions, rashes, diarrhea, dyspnea or immunotherapy related toxicities. Interestingly she does not have any routine follow-up with dermatology, despite her diagnosis of melanoma. She had surveillance right axillary US showing no suspicious adenopathy. She had a repeat whole body FDG PET/CT 06/17/2021, which both showedno evidence of metastatic disease. No abnormal uptake in the liver. There weremultiple sites of mild FDG uptake in musculoskeletal system (L3/4, right ankle, right wrist carpal tunnel) and subcutaneous left lower leg with no associated skin lesion or nodule. I reassured the patient this is likely due to degenerative changes and will continue to follow. 06/22/2021 MRI of brain showeda prominent pituitary stalk without mass, stable from prior imaging. I will continue monthly Nivolumab and followup in 3 months, sooner prn. We will also refer to dermatology for skin surveillance. 03/23/2021: Tosha is here for 1 month follow-up after starting adjuvant nivolumab for stage III right posterior arm melanoma. She has tolerated her initial therapy well without infusion reactions, rashes, diarrhea, dyspnea, or any otherimmunotherapy toxicities. Her baseline laboratories were normal and follow-up labs prior to her second dose today showed borderline elevated total bilirubin of 1.4 which will be followed. Normal thyroid testing and ACTH is pending. Of note she had her sentinel lymph node dissection in late November and we will set up her 4-month follow-up surveillance ultrasound this month and she will be contacted with the results. Of note her MRI of brain her baseline did show borderline enlargement of the pituitary without mass and all of her pituitary labs have been unremarkable. She does not have any headaches or visual changes but was advised to watch for any of these symptoms and we would reimage her sooner. Otherwise she will be evaluated with repeat PET/CT and MRI of brain forsurveillance of uptake in the liver with negative liver ultrasound in January and her borderline enlargement of the pituitary noted on baseline study. Patient expressed understanding. PREVIOUS HISTORY: This is a now 72-year-old lady referred here by Dr. Hernando Mccartney. She follows with Dr. Wild Centeno. 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 There was ulceration with tumor infiltrating lymphocytes but no lymphovascular invasion. There was positive margins involved. She was referred to general surgery with Dr. Hernando Mccartney who proceeded with wide local excision 09/05/2020 at [facility]. Outside review at [facility] showed at least 2.1 cm Breslow depth melanoma with 2 cm negative margins. She was referred to Dr. Cedrick Berger at [facility]. Right axillary sentinel lymph node biopsy performed 11/28/2020 revealed 1 of 2 lymph nodes positive for micrometastatic involvement without extracapsular extension. Greatest focus of disease was 0.01 mm in dimension. The patient was scheduled for PET/CT for metastatic staging on 12/26/2020: This result revealed multifocal hypermetabolic uptake of the liver concerning for metastatic disease. She was also noted to have moderate right hydronephrosis and hydroureter. She was scheduled for follow-up liver ultrasound on 01/09/2021 which was unremarkable with no visible liver lesion. Her case was presented at [facility] cutaneous tumor board on 12/15/2020rior to her metastatic staging. Discussion of referral to medical oncology fordiscussion of immunotherapy. The patient is now returning for medical oncology follow-up after review of all prior pathology and imaging. BRAF status is stillpending. She has healed well. She is a 10-year history of diabetes. She resides in [facility]. Today we reviewed immunotherapy counseling for nivolumab. Although PET/CT was indeterminate for metastatic disease to liver, negative ultrasound warrants treatment of this for curative intent. Common toxicities were reviewed to include infusion reactions, rash, fatigue, diarrhea, visual changes, abnormalities of thyroid/adrenal/pituitary function, pancreatitis, and other autoimmune toxicities. Other toxicities may include pneumonitis, neurologic, hepatic and renal toxicities. The patient signed informed consent and will follow-up as directed. - Summary of Therapies Summary of Therapies: 1. Initial wide local excision at [facility] 09/05/[address] Hernando Mccartney 2. Right sentinel lymph node biopsy 11/28/2020 at [facility] by Dr. Cedrick Berger 3. Delay of immunotherapy due to work-up of possible metastatic disease of liver on PET. Brain MRI returned with no evidence of metastatic disease to brain. Liver ultrasound showed no liver lesions. Abnormalities of FDG avidity on PET/CT are felt to be due to artifact from diabetes. --Cycle 1 day 1 02/23/2021 for adjuvant nivolumab 480 mg IV every 4 weeks for 12 cycles. Last cycle early January 2022, then surveillance. ROS Details: All systems reviewed & no additional complaints except as documented Subjective/ROS - Narrative: CONSTITUTIONAL: Negative for fatigue, negative for fever or night sweats. HEAD AND NECK: Negative for changes in hearing and vision. Negative for mouth ulcers, nasal congestion and nasal drainage. PULMONARY: Negative for chest pain, cough and dyspnea. CARDIOVASCULAR: Negative for claudication and irregular heartbeat/palpitations. GASTROINTESTINAL: Negative for abdominal pain, constipation, decreased appetite,diarrhea, nausea, and vomiting. GENITOURINARY: Negative for dysuria and hematuria. ENDOCRINE: Negative for cold intolerance and heat intolerance. CENTRAL NERVOUS SYSTEM: Negative for gait disturbance and headache. No focal motor or sensory abnormalities. PSYCHIATRIC: Negative for anxiety or depression. DERMATOLOGICAL: Negative for pruritus and rash. Negative for suspicious skin lesions. Well-healed from wide local excision right arm and right axillary sentinel lymph node biopsy. MUSCULOSKELETAL: Negative for back pain and bone/joint symptoms. HEMATOLOGICAL: Negative for bleeding and easy bruising. Negative for history of transfusion or thromboembolic disease ALLERGY: Negative for environmental allergies and food allergies. PMFSH - History Attestation statement: The following information was validated with the patient. Source: Old Records Reviewed - Medical History Medical History: Medical History (Last Reviewed 04/13/23 @ 17:54 by Rose Ohara MD) Arm fracture, left Arthritis Carpal tunnel syndrome on right s/p suurgery Diabetes mellitus, type 2 Gout H/O pilonidal cyst Hypercholesteremia Hypertension Osteoporosis - Surgical History Surgical History: Surgical History (Last Reviewed 04/13/23 @ 17:54 by Rose Ohara MD) H/O repair of left rotator cuff History of phacoemulsification of cataract of both eyes with intraocular lens implantation History of tubal ligation - Family History Family History: Family History (Last Reviewed 04/13/23 @ 17:54 by Rose Ohara MD) Mother CVA (cerebral vascular accident) Father Leukemia - Social History Smoking Status: Never smoker Substance Use Type: None Home Medications & Allergies Allergies No Known Allergies Allergy (Verified 04/13/23 09:16) Home Medications alendronate 35 mg tablet 35 mg PO QWEEK osteoporosis 04/11/19 [History Confirmed 04/13/23] amlodipine 5 mg tablet 5 mg PO DAILY HTN 04/11/19 [History Confirmed 04/13/23] carvedilol 25 mg tablet 25 mg PO BID HTN 04/11/19 [History Confirmed 04/13/23] dulaglutide 1.5 mg/0.5 mL subcutaneous pen injector 0.75 mg subcut QWEEK DIABETES 04/11/19 [History Confirmed 04/13/23] lisinopril 40 mg tablet 40 mg PO DAILY htn 04/11/19 [History Confirmed 04/13/23] metformin 1,000 mg tablet 1,000 mg PO BID diabetes 04/11/19 [History Confirmed 04/13/23] potassium chloride 20 mEq tablet,extended release 20 meq PO DAILY hypokalemia 04/11/19 [History Confirmed 04/13/23] rosuvastatin 10 mg tablet 10 mg PO DAILY hypercholesterolemia 04/11/19 [History Confirmed 04/13/23] vit C 50 mg-E 15 unit-zinc cit 4.5 mg-lutein 2.5 mg-zeaxan chew tablet ([employer] [facility]) 1 tab PO DAILY eye health 04/11/19 [History Confirmed 04/13/23] aspirin 81 mg tablet,delayed release 81 mg PO DAILY 10/01/20 [History Confirmed 04/13/23] spironolactone 25 mg tablet 25 mg PO DAILY 12/30/21 [History Confirmed 04/13/23] furosemide 40 mg tablet (Lasix) 40 mg PO DAILY 01/11/22 [History Confirmed 04/13/23] Objective - Height/Weight Height/Weight: Height 5 ft 2.2 in Weight 99.337 kg BSA for Today's Weight 2.06 - Vital Signs Vital Signs: 04/13/23 09:19 Temperature 97.9 F Pulse Rate [Left Brachial] 64 Respiratory Rate 16 Blood Pressure [Left Arm] 148/67 H 02 Sat by Pulse Oximetry 97 Oxygen Delivery Method Room Air - Pain Left Knee Pain Intensity: 5 - Distress Screening Distress Screen Results: RN Distress Screening Start: 02/23/21 11:34 Freq: Q30D Status: Active Protocol: Document 06/29/21 10:47 AL (Rec: 06/29/21 10:49 AL [id number]) Distress Screening Distress Score: 8 Emotional Concerns Worry Comments Patient is very nervous about test results. Distress Screening Total 8 Distress score of 4 or more discussed Refused with patient? Distress screening follow up: Patient very nervous about test results, intervention denied. Physical Exam Narrative: CONSTITUTIONAL: The patient is in no acute distress. HEAD / FACE: Normocephalic. EYES: Pupils are equal and reactive to light. Conjunctivae and lids are benign in appearance. Ocular movement intact. EARS: Hearing grossly intact. NOSE / MOUTH / THROAT: Nose, mouth, tongue and oropharynx are benign in appearance. No signs of inflammation. NECK / THYROID: Neck is supple. Thyroid is symmetrical, without thyromegaly, masses or palpable nodules. LYMPHATIC: No palpable cervical, supraclavicular, axillary, or inguinal adenopathy. RESPIRATORY: Normal to inspection. Lungs clear to auscultation and percussion. No wheezing, rales, rhonchi or rubs. Normal effort. CARDIOVASCULAR: Regular rate and rhythm. No murmurs, gallops, or rubs. VASCULAR: Carotid, radial, femoral and pedal pulses present bilaterally. No bruits. ABDOMEN: Bowel sounds normoactive. Soft, nontender and non-distended. No hepatosplenomegaly. No masses. GENITOURINARY: No CVA tenderness. No suprapubic fullness or tenderness. No groinadenopathy. No evidence of hernias. INTEGUMENTARY: The skin is unremarkable. No rashes. No suspicious lesions. BACK / SPINE: The back is nontender. MUSCULOSKELETAL: Normal musculature, no joint deformities or abnormalities, normal range of motion for all four extremities--has knee pain from osteoarthritis and notes that she will be scheduling knee replacement surgery inthe future. The right upper arm lesion is well healed from wide local excision. Right axilla well-healed without palpable adenopathy. EXTREMITIES: No edema, cyanosis or clubbing. No Gia sign. NEUROLOGICAL: Alert and oriented. Cranial nerves intact. No gross motor or sensory deficits. PSYCHIATRIC: No anxiety or evidence of depression. - ECOG Performance Status ECOG Score: 1 Results - Labs Labs: Diagram of Most Recent CBC and CMP 04/12/23 09:13 04/12/23 09:13 Labs - Last 7 Days 04/12/23 09:13: PHA Creatinine Clear 54.77, Sodium 140, Potassium 4.8, Chloride 102, Carbon Dioxide 27.2, Anion Gap 15.6 H, BUN 34 H, Creatinine 1.01, Est GFR (CKD- EPI) 58.780, Glucose 203 H, Calcium 9.1, Total Bilirubin 0.9, AST 16, ALT 17, Alkaline Phosphatase 57, Lactate Dehydrogenase 120 L, Total Protein 6.7, Albumin 4.1, Globulin 2.6, Albumin/Globulin Ratio 1.6 04/12/23 09:13: Corrected WBC 6.9, Uncorrected WBC Count 6.9, RBC 4.62, Hgb 13.5, Hct 41.4, MCV 89.4, MCH 29.3, MCHC 32.7, RDW 14.7, Plt Count 197, MPV 8.3,Neut % (Auto) 62.3, Lymph % (Auto) 26.0, [place] % (Auto) 8.6, Eos % (Auto) 2.2, Baso % (Auto) 0.9, Nucleat RBC Rel Count 0.1, Neut # (Auto) 4.3, Lymph # (Auto) 1.8, [place] # (Auto) 0.6, Eos # (Auto) 0.2, Baso # (Auto) 0.1 - Impressions Date of Service: 04/07/23 US/US extremity nonvascular: Surveillance Melanoma Copies to: Rose Ohara MD~ Exam: Right axillary ultrasound. Reason for exam: History of melanoma. Follow-up. COMPARISON: Prior right axillary ultrasound 09/21/2022. TECHNIQUE: Grayscale and color Doppler images of the right axilla were obtained. FINDINGS: Imaging of the right axilla demonstrates multiple benign-appearing lymph nodes, largest measuring 1.9 cm in greatest dimension, unchanged from the prior ultrasound study. No sinister-appearing lymph nodes are identified. No suspicious mass is seen within the right axilla. US/US extremity nonvascular IMPRESSION: Benign-appearing lymph nodes within the right axilla, grossly unchanged from the prior study. Impression dictated by: Myron Stevens Jr.OPablo04/07/2023 8:57 AM Assessment and Plan - TNM Staging Staging: Stage: pIIIC ([id number]) Melanoma 5 year survival: 69% (1) Melanoma Qualifiers: Melanoma location: upper extremity including shoulder Laterality: right Qualified Code(s): C43.61 - Malignant melanoma of right upper limb, including shoulder The patient is a 72-year-old lady who originally presented in August 2020 with ulcerated right upper arm T3 NX MX melanoma. There were tumor infiltrating lymphocytes but no evidence of lymphovascular invasion. She underwent wide local excision with negative margins that revealed at least 2.1 mm wide local excision, but was subsequently referred for right axillary sentinel lymph node biopsy on 11/28/2020 showing 1-2 nodes positive for micrometastatic involvement without extracapsular extension. Dr. Cedrick Berger at [facility] surgical oncology group ordered metastatic staging with MRI of brain which revealed borderline enlargement of pituitary but was negative for metastatic disease. PET/CT showed indeterminate uptake in the hepatic parenchyma. Subsequent liver ultrasound was negative for metastatic disease. 02/23/2021: Patient started adjuvant immunotherapy with checkpoint inhibitor nivolumab 480 mg IV every 4 weeks for 12 cycles. At follow-up 03/23/2021 she hadno immunotherapy related toxicities noted by symptoms, exam, or laboratories. 06/29/2021: No concerning symptoms for immunotherapy toxicity. We continue surveillance of right axilla with followup axillary ultrasound in 3 months--March 2021 ultrasound was reviewed with patient showing no evidence of recurrence, and6- month follow-up PET/CT and follow-up brain MRI in June 2021 reviewed--no concerning findings. --Musculoskeletal sites with SUV 2.8-4, patient reassured and we will perform one further f/u PET/CT in 6 months to determine if uptake still noted in these sites requiring biopsy. 09/30/2021: Still without immunotherapy toxicity. Right axillary ultrasound without abnormal adenopathy. Restaging CT CAP for restaging ordered for Dec 2021 followup visit. 12/30/2021: No concerning symptoms for immunotherapy toxicity. CT CAP for restaging shows no evidence of distant metastases. End of 1 year immunotherapy 01/2022. We continue surveillance of right axilla with followup axillary ultrasound in 3 months--March 2022 ultrasound ordered with f/u labs CBC, CMP, LDH,and TSH. 04/01/2022: Here for 3-month follow-up after completing 1 year of immunotherapy for stage III melanoma in January 2022. Surveillance right axillary ultrasound without evidence of recurrence. Her only change in laboratories is mild increase of creatinine to 1.4 from prior 1.1. No prior history of renal insufficiency and likely medical renal disease. She was encouraged to hydrate and follow-up with primary physician. Next follow-up with fl for CT chest abdomen pelvis with surveillance labs CBC, CMP, and LDH in 3 months or sooner asneeded. 07/01/2022: 3 month followup, now 5 months from completion of immunotherapy for Stage III melanoma. Restaging CT CAP shows no metastases. Unremarkable exam and labs. Next follow-up with me in 3 months unless new issues arise. 09/23/2022: 3-month follow-up with no new concerning symptoms. Dermatology follow-up shows no new skin lesions. No evidence of recurrence at primary site. Surveillance ultrasound right axilla without enlarging lymph nodes or pathologic thickening of cortex. We will continue surveillance with follow-up symptom review, exam, and 3-month CT chest abdomen pelvis to monitor for metastatic disease and defer next surveillance right axillary ultrasound for 6 months. She may return sooner if new issues arise. 12/23/2022: 3-month follow-up with no new concerning symptoms. She is now 2-1/2 years from diagnosis and nearly 1 year from completion of Nivolumab adjuvant therapy. Restaging CT chest abdomen pelvis shows no evidence of metastatic disease. We will change follow-up to every 4 months for right axillary ultrasound (next due in April 2023) and we will continue to follow ultrasounds every 4 months and defer restaging CT chest abdomen pelvis to annual unless new symptoms arise. 04/13/2023: 4-month followup of Stage III melanoma with no new skin lesions on dermatology followup and no axillary fullness on exam or right axillary US imaging. Will continue to follow with exam and right axillary US every [address] Chest/Abdomen/Pelvis in 12/2023, sooner prn. Patient is in agreement with this plan over this low complexity 25-minute visit to review symptoms, imaging noted above, and labs after completing immunotherapyMar2021. 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 She has no headaches or visual changes and we repeated her MRI of brain for surveillance at 6 months in June 2021--no interval change of prominent pituitary stalk. We may follow for symptoms only. (3) Diabetes mellitus Qualifiers: Chronic kidney disease stage: stage 1 Patient has a known history of diabetes mellitus and in 12/2020 she had diffuse uptake in liver on PET/CT. This was due to her hyperglycemia, no issues during her immunotherapy. Followup PET/CT with no abnormal uptake in liver. All further restaging studies with CT CAP with contrast instead. Most recent creatinine normal. - Chemo Plan Chemo Plan (Dose, Rate, Freq): Nivolumab 480 mg IV every 4 weeks for 12 cycles, completed 01/2022. Number of Cycles: 12 Goal of Treatment: Curative - Time with Patient Time Spent with Patient (Follow Up Visit): 25 minutes - Low complexity, exam, lab review, radiology review right axillary US, and follow-up plan Coordination of Care & Counseling Time: Greater than 50% of time spent with patient was for coordination of care (as documented) and [id number] counseling of patient and/or family. Dictated By: Rose Ohara MD DD/ [id number] Signed By: <Electronically signed by MD Rose Ohara> 04/13/23 [id number] [facility] Work Phone: [phone] Progress note Author Rose Ohara [facility] December 23, 2022 11:01am Note Date/Time December 23, 2022 9:06am [facility] [place] [address] Hem/Onc Follow Up Note - OP Signed Patient: Tosha Mcneal MR#: [id number] : 1950 Acct:[id number] Age/Sex: 72 / F Type: REG RCR Copies to: DO Mohan Haddad MD~ Subjective Date/Time of Service: Date of Service: 12/23/2022 Time of Service: 09:05 Chief Complaint: Patient is here today for a 3 month follow up visit for melanoma of right arm and go over labs and CT scans. No new concerns HPI: 12/23/2022: Tosha is here for 3-month follow-up and review of 6-month surveillance CT chest abdomen pelvis for restaging stage III melanoma. She completed 1 year of adjuvant Nivolumab in January 2022. No interval changes in medical history and has her scheduled dermatology follow-up in January. No evidence of recurrence on CT chest abdomen pelvis and labs are unremarkable. Genevieve set up her right axillary ultrasound in April 2023 (we will schedule around cruise planned that month). We will defer her next follow-up to 4 months and continue every 4-month axillary ultrasound surveillance with restaging CTs deferred to 1 year unless new symptoms arise. Low complexity visit 25 minutes to review imaging and follow-up plan. 09/23/2022: Tosha is here for 3 month followup and review of exam and surveillance right axillary ultrasound. She was seen by dermatology 1 month agowith no new findings. Right axillary ultrasound does not show any concerning lymph nodes in size or containing a pathologically thickened cortex. Her laboratories are unremarkable and no concerning symptoms off immunotherapy sinceJanuary 2022. Next follow-up with restaging CT chest abdomen pelvis in 3 months, sooner if new concerns arise. Low complexity 20-minute follow-up visit. 07/01/2022: 3 month followup after completing adjuvant nivolumab for stage III right posterior arm melanoma 5 months ago. Unremarkable skin exam on dermatology followup. No adenopathy, followup CT Chest/Abdomen/Pelvis shows no distant metastasis. Next f/u with ultrasound right axilla in 3 months with labs. Low complexity 20 minute visit to review imaging. Low complexity 20 minute followup visit. 03/31/2022: Here for follow-up after last dose of nivolumab adjuvant therapy for stage III right posterior arm melanoma given 01/24/2022. No immunotherapy related toxicities. Recently saw dermatology with no evidence of recurrence. We reviewed her right axillary ultrasound that showed no adenopathy. She will be due for bidirectional imaging with CT chest abdomen pelvis in 3 months and surveillance exam at that time. Low complexity 15-minute visit. 12/30/2021: 3 month followup on Nivolumab adjuvant therapy for stage III right posterior arm melanoma. Continues to have no immunotherapy related toxicities. Continues dermatology followup every [address] CAP without recurrence. One more month of adjuvant Nivolumab then f/u 3 months with CBC, CMP, LDH, and TSH with surveillance axillary US. Low complexity 15 min visit. 09/30/2021: 3 month followup on Nivolumab adjuvant therapy for stage III right posterior arm melanoma. Continues to have no immunotherapy related toxicities. Now following with dermatology at [facility] with no recurrence on skin exam. Surveillance ultrasound right axilla without recurrence. She will have routing f/u with [place] in [address] CAP and labs for surveillance on immunotherapy. 06/29/2021: 3 month followup on Nivolumab adjuvant therapy for stage III right posterior arm melanoma. She still notes no infusion reactions, rashes, diarrhea, dyspnea or immunotherapy related toxicities. Interestingly she does not have any routine follow-up with dermatology, despite her diagnosis of melanoma. She had surveillance right axillary US showing no suspicious adenopathy. She had a repeat whole body FDG PET/CT 06/17/2021, which both showedno evidence of metastatic disease. No abnormal uptake in the liver. There weremultiple sites of mild FDG uptake in musculoskeletal system (L3/4, right ankle, right wrist carpal tunnel) and subcutaneous left lower leg with no associated skin lesion or nodule. I reassured the patient this is likely due to degenerative changes and will continue to follow. 06/22/2021 MRI of brain showeda prominent pituitary stalk without mass, stable from prior imaging. I will continue monthly Nivolumab and followup in 3 months, sooner prn. We will also refer to dermatology for skin surveillance. 03/23/2021: Tosha is here for 1 month follow-up after starting adjuvant nivolumab for stage III right posterior arm melanoma. She has tolerated her initial therapy well without infusion reactions, rashes, diarrhea, dyspnea, or any other immunotherapy toxicities. Her baseline laboratories were normal and follow-up labs prior to her second dose today showed borderline elevated total bilirubin of 1.4 which will be followed. Normal thyroid testing and ACTH is pending. Of note she had her sentinel lymph node dissection in late November andwe will set up her 4-month follow-up surveillance ultrasound this month and she will be contacted with the results. Of note her MRI of brain her baseline did show borderline enlargement of the pituitary without mass and all of her pituitary labs have been unremarkable. She does not have any headaches or visual changes but was advised to watch for any of these symptoms and we would reimage her sooner. Otherwise she will be evaluated with repeat PET/CT and MRI of brain for surveillance of uptake in the liver with negative liver ultrasound in January and her borderline enlargement of the pituitary noted on baseline study. Patient expressed understanding. PREVIOUS HISTORY: This is a now 72-year-old lady referred here by Dr. Hernando Mccartney. She follows with Dr. Wild Centeno. 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 There was ulceration with tumor infiltrating lymphocytes but no lymphovascular invasion. There was positive margins involved. She was referred to general surgery with Dr. Hernando Mccartney who proceeded with wide local excision 09/05/2020 at [facility]. Outside review at [facility] showed at least 2.1 cm Breslow depth melanoma with 2 cm negative margins. She was referred to Dr. Cedrick Berger at [facility]. Right axillary sentinel lymph node biopsy performed 11/28/2020 revealed 1 of 2 lymph nodes positive for micrometastatic involvement without extracapsular extension. Greatest focus of disease was 0.01 mm in dimension. The patient was scheduled for PET/CT for metastatic staging on 12/26/2020: This result revealed multifocal hypermetabolic uptake of the liver concerning for metastatic disease. She was also noted to have moderate right hydronephrosis and hydroureter. She was scheduled for follow-up liver ultrasound on 01/09/2021 which was unremarkable with no visible liver lesion. Her case was presented at [facility] cutaneous tumor board on 12/15/2020rior to her metastatic staging. Discussion of referral to medical oncology fordiscussion of immunotherapy. The patient is now returning for medical oncology follow-up after review of all prior pathology and imaging. BRAF status is stillpending. She has healed well. She is a 10-year history of diabetes. She resides in [facility]. Today we reviewed immunotherapy counseling for nivolumab. Although PET/CT was indeterminate for metastatic disease to liver, negative ultrasound warrants treatment of this for curative intent. Common toxicities were reviewed to include infusion reactions, rash, fatigue, diarrhea, visual changes, abnormalities of thyroid/adrenal/pituitary function, pancreatitis, and other autoimmune toxicities. Other toxicities may include pneumonitis, neurologic, hepatic and renal toxicities. The patient signed informed consent and will follow-up as directed. - Summary of Therapies Summary of Therapies: 1. Initial wide local excision at [facility] 09/05/[address] Hernando Mccartney 2. Right sentinel lymph node biopsy 11/28/[address] at [facility] by Dr. Cedrick Berger 3. Delay of immunotherapy due to work-up of possible metastatic disease of liver on PET. Brain MRI returned with no evidence of metastatic disease to brain. Liver ultrasound showed no liver lesions. Abnormalities of FDG avidity on PET/CT are felt to be due to artifact from diabetes. --Cycle 1 day 1 02/23/2021 for adjuvant nivolumab 480 mg IV every 4 weeks for 12 cycles. Last cycle early January 2022, then surveillance. ROS Details: All systems reviewed & no additional complaints except as documented Subjective/ROS - Narrative: CONSTITUTIONAL: Negative for fatigue, negative for fever or night sweats. HEAD AND NECK: Negative for changes in hearing and vision. Negative for mouth ulcers, nasal congestion and nasal drainage. PULMONARY: Negative for chest pain, cough and dyspnea. CARDIOVASCULAR: Negative for claudication and irregular heartbeat/palpitations. GASTROINTESTINAL: Negative for abdominal pain, constipation, decreased appetite,diarrhea, nausea, and vomiting. GENITOURINARY: Negative for dysuria and hematuria. ENDOCRINE: Negative for cold intolerance and heat intolerance. CENTRAL NERVOUS SYSTEM: Negative for gait disturbance and headache. No focal motor or sensory abnormalities. PSYCHIATRIC: Negative for anxiety or depression. DERMATOLOGICAL: Negative for pruritus and rash. Negative for suspicious skin lesions. Well-healed from wide local excision right arm and right axillary sentinel lymph node biopsy. MUSCULOSKELETAL: Negative for back pain and bone/joint symptoms. HEMATOLOGICAL: Negative for bleeding and easy bruising. Negative for history of transfusion or thromboembolic disease ALLERGY: Negative for environmental allergies and food allergies. PMFSH - History Attestation statement: The following information was validated with the patient. Source: Old Records Reviewed - Medical History Medical History: Medical History (Last Reviewed 12/23/22 @ 10:57 by Rose Ohara MD) Arm fracture, left Arthritis Carpal tunnel syndrome on right s/p suurgery Diabetes mellitus, type 2 Gout H/O pilonidal cyst Hypercholesteremia Hypertension Osteoporosis - Surgical History Surgical History: Surgical History (Last Reviewed 12/23/22 @ 10:57 by Rose Ohara MD) H/O repair of left rotator cuff History of phacoemulsification of cataract of both eyes with intraocular lens implantation History of tubal ligation - Family History Family History: Family History (Last Reviewed 12/23/22 @ 10:57 by Rose Ohara MD) Mother CVA (cerebral vascular accident) Father Leukemia - Social History Smoking Status: Never smoker Substance Use Type: None Home Medications & Allergies Allergies No Known Allergies Allergy (Verified 12/23/22 08:58) Home Medications alendronate 35 mg tablet 35 mg PO QWEEK osteoporosis 04/11/19 [History Confirmed 12/23/22] amlodipine 5 mg tablet 5 mg PO DAILY HTN 04/11/19 [History Confirmed 12/23/22] carvedilol 25 mg tablet 25 mg PO BID HTN 04/11/19 [History Confirmed 12/23/22] dulaglutide 1.5 mg/0.5 mL subcutaneous pen injector 0.75 mg subcut QWEEK DIABETES 04/11/19 [History Confirmed 12/23/22] hydrochlorothiazide 25 mg tablet 25 mg PO DAILY 04/11/19 [History Confirmed 12/23/22] lisinopril 40 mg tablet 40 mg PO DAILY htn 04/11/19 [History Confirmed 12/23/22] metformin 1,000 mg tablet 1,000 mg PO BID diabetes 04/11/19 [History Confirmed 12/23/22] potassium chloride 20 mEq tablet,extended release 20 meq PO DAILY hypokalemia 04/11/19 [History Confirmed 12/23/22] rosuvastatin 10 mg tablet 10 mg PO DAILY hypercholesterolemia 04/11/19 [History Confirmed 12/23/22] vit C 50 mg-E 15 unit-zinc cit 4.5 mg-lutein 2.5 mg-zeaxan chew tablet ([employer] [facility]) 1 tab PO DAILY eye health 04/11/19 [History Confirmed 12/23/22] aspirin 81 mg tablet,delayed release 81 mg PO DAILY 10/01/20 [History Confirmed 12/23/22] spironolactone 25 mg tablet 25 mg PO DAILY 12/30/21 [History Confirmed 12/23/22] furosemide 40 mg tablet (Lasix) 40 mg PO DAILY 01/11/22 [History Confirmed 12/23/22] dapagliflozin 5 mg tablet (Farxiga) 5 mg PO DAILY 03/31/22 [History Confirmed 12/23/22] Objective - Height/Weight Height/Weight: Height 5 ft 2.2 in Weight 99.7 kg BSA for Today's Weight 2.06 - Vital Signs Vital Signs: 12/23/22 08:58 Temperature 97.8 F Pulse Rate [Left Brachial] 64 Respiratory Rate 16 Blood Pressure [Left Arm] 163/70 H 02 Sat by Pulse Oximetry 90 L Oxygen Delivery Method Room Air - Pain Left Knee Pain Intensity: 5 - Distress Screening Distress Screen Results: RN Distress Screening Start: 02/23/21 11:34 Freq: Q30D Status: Active Protocol: Document 06/29/21 10:47 AL (Rec: 06/29/21 10:49 AL [id number]) Distress Screening Distress Score: 8 Emotional Concerns Worry Comments Patient is very nervous about test results. Distress Screening Total 8 Distress score of 4 or more discussed Refused with patient? Distress screening follow up: Patient very nervous about test results, intervention denied. Physical Exam Narrative: CONSTITUTIONAL: The patient is in no acute distress. HEAD / FACE: Normocephalic. EYES: Pupils are equal and reactive to light. Conjunctivae and lids are benign in appearance. Ocular movement intact. EARS: Hearing grossly intact. NOSE / MOUTH / THROAT: Nose, mouth, tongue and oropharynx are benign in appearance. No signs of inflammation. NECK / THYROID: Neck is supple. Thyroid is symmetrical, without thyromegaly, masses or palpable nodules. LYMPHATIC: No palpable cervical, supraclavicular, axillary, or inguinal adenopathy. RESPIRATORY: Normal to inspection. Lungs clear to auscultation and percussion. No wheezing, rales, rhonchi or rubs. Normal effort. CARDIOVASCULAR: Regular rate and rhythm. No murmurs, gallops, or rubs. VASCULAR: Carotid, radial, femoral and pedal pulses present bilaterally. No bruits. ABDOMEN: Bowel sounds normoactive. Soft, nontender and non-distended. No hepatosplenomegaly. No masses. GENITOURINARY: No CVA tenderness. No suprapubic fullness or tenderness. No groinadenopathy. No evidence of hernias. INTEGUMENTARY: The skin is unremarkable. No rashes. No suspicious lesions. BACK / SPINE: The back is nontender. MUSCULOSKELETAL: Normal musculature, no joint deformities or abnormalities, normal range of motion for all four extremities--has knee pain from osteoarthritis and notes that she will be scheduling knee replacement surgery in the future. The right upper arm lesion is well healed from wide local excision. Right axilla well-healed without palpable adenopathy. EXTREMITIES: No edema, cyanosis or clubbing. No Gia sign. NEUROLOGICAL: Alert and oriented. Cranial nerves intact. No gross motor or sensory deficits. PSYCHIATRIC: No anxiety or evidence of depression. - ECOG Performance Status ECOG Score: 1 Results - Labs Labs: Diagram of Most Recent CBC and CMP 12/21/22 08:50 12/21/22 08:50 Labs - Last 7 Days 12/21/22 08:50: Corrected WBC 6.8, Uncorrected WBC Count 6.8, RBC 4.86, Hgb 14.1, Hct 43.3, MCV 89.0, MCH 29.0, MCHC 32.6, RDW 14.9, Plt Count 200, MPV 7.7,Neut % (Auto) 60.2, Lymph % (Auto) 24.8, [place] % (Auto) 11.9, Eos % (Auto) 1.9, Baso % (Auto) 1.2, Nucleat RBC Rel Count 0.2, Neut # (Auto) 4.1, Lymph # (Auto) 1.7, [place] # (Auto) 0.8, Eos # (Auto) 0.1, Baso # (Auto) 0.1 12/21/22 08:50: PHA Creatinine Clear 65.16, Sodium 140, Potassium 4.8, Chloride 102, Carbon Dioxide 26.1, Anion Gap 16.7 H, BUN 24 H, Creatinine 0.85, Est GFR ( Amer) > 60, Est GFR (Non-Af Amer) > 60, Glucose 137 H, Calcium 9.6, Total Bilirubin 1.1, AST 20, ALT 21, Alkaline Phosphatase 48, Lactate Dehydrogenase 141, Total Protein 7.0, Albumin 4.1, Globulin 2.9, Albumin/Globulin Ratio 1.4 - Impressions CT CHEST, ABDOMEN AND PELVIS WITH INTRAVENOUS CONTRAST: CLINICAL HISTORY: Melanoma right upper arm. COMPARISON: CT chest, abdomen and pelvis 06/29/2022 TECHNIQUE: TECHNIQUE: Spiral images were obtained through the chest, abdomen and pelvis following the administration of IV contrast. This CT exam was performed using one or more following dose reduction techniques: Automated exposure control, adjustment of the mA and/or kV according to patient size, or use of iterative reconstruction technique. FINDINGS: CT chest: Mediastinum:Thoracic aorta appears normal in caliber. Pulmonary trunk appears nondilated. No pericardial effusion. No lymphadenopathy. The esophagus is grossly unremarkable. Lungs:Mild lung scarring. No consolidation, pneumothorax or pleural effusion. No suspicious pulmonary nodule. Soft tissues/Bones: No focal soft tissue abnormality. No lymphadenopathy. Osseous structures demonstrate degenerative change. CT abdomen and pelvis: Organs:No enhancing liver lesion. Gallbladder portal vein spleen pancreas and adrenal glands all appear unremarkable. No enhancing renal mass or hydronephrosis. Abdominal aorta appears normal in caliber. GI: Stomach is grossly unremarkable. Duodenal diverticulum. No acute colonic abnormality. Sigmoid diverticulosis. Appendix is normal. Pelvis:[Urinary bladder is grossly unremarkable. Partially calcified fibroid uterus. No adnexal mass. Peritoneum/Retroperitoneum:No free air, free fluid or lymphadenopathy. Abd wall/Bones:Abdominal wall demonstrates no acute findings. Osseous structures demonstrate degenerative change. CT/CT chest w con IMPRESSION: No evidence of metastatic disease seen within the chest, abdomen or pelvis. Impression dictated by: Miki Kruse Jr., D.O.12/21/2022 1:50 PM Assessment and Plan - TNM Staging Staging: Stage: pIIIC ([id number]) Melanoma 5 year survival: 69% (1) Melanoma Qualifiers: Melanoma location: upper extremity including shoulder Laterality: right Qualified Code(s): C43.61 - Malignant melanoma of right upper limb, including shoulder The patient is a 72-year-old lady who originally presented in August 2020 with ulcerated right upper arm T3 NX MX melanoma. There were tumor infiltrating lymphocytes but no evidence of lymphovascular invasion. She underwent wide local excision with negative margins that revealed at least 2.1 mm wide local excision, but was subsequently referred for right axillary sentinel lymph node biopsy on 11/28/2020 showing 1-2 nodes positive for micrometastatic involvement without extracapsular extension. Dr. Cedrick Berger at [facility] surgical oncology group ordered metastatic staging with MRI of brain which revealed borderline enlargement of pituitary but was negative for metastatic disease. PET/CT showed indeterminate uptake in the hepatic parenchyma. Subsequent liver ultrasound was negative for metastatic disease. 02/23/2021: Patient started adjuvant immunotherapy with checkpoint inhibitor nivolumab 480 mg IV every 4 weeks for 12 cycles. At follow-up 03/23/2021 she had no immunotherapy related toxicities noted by symptoms, exam, or laboratories. 06/29/2021: No concerning symptoms for immunotherapy toxicity. We continue surveillance of right axilla with followup axillary ultrasound in 3 months--March 2021 ultrasound was reviewed with patient showing no evidence of recurrence, and 6- month follow-up PET/CT and follow-up brain MRI in June 2021 reviewed--no concerning findings. --Musculoskeletal sites with SUV 2.8-4, patient reassured and we will perform one further f/u PET/CT in 6 months to determine if uptake still noted in these sites requiring biopsy. 09/30/2021: Still without immunotherapy toxicity. Right axillary ultrasound without abnormal adenopathy. Restaging CT CAP for restaging ordered for Dec 2021 followup visit. 12/30/2021: No concerning symptoms for immunotherapy toxicity. CT CAP for restaging shows no evidence of distant metastases. End of 1 year immunotherapy 01/2022. We continue surveillance of right axilla with followup axillary ultrasound in 3 months--March 2022 ultrasound ordered with f/u labs CBC, CMP, LDH, and TSH. 04/01/2022: Here for 3-month follow-up after completing 1 year of immunotherapy for stage III melanoma in January 2022. Surveillance right axillary ultrasound without evidence of recurrence. Her only change in laboratories is mild increase of creatinine to 1.4 from prior 1.1. No prior history of renal insufficiency and likely medical renal disease. She was encouraged to hydrate and follow-up with primary physician. Next follow-up with me for CT chest abdomen pelvis with surveillance labs CBC, CMP, and LDH in 3 months or sooner as needed. 07/01/2022: 3 month followup, now 5 months from completion of immunotherapy for Stage III melanoma. Restaging [address] CAP shows no metastases. Unremarkable exam and labs. Next follow-up with me in 3 months unless new issues arise. 09/23/2022: 3-month follow-up with no new concerning symptoms. Dermatology follow-up shows no new skin lesions. No evidence of recurrence at primary site. Surveillance ultrasound right axilla without enlarging lymph nodes or pathologic thickening of cortex. We will continue surveillance with follow-up symptom review, exam, and 3-month CT chest abdomen pelvis to monitor for metastatic disease and defer next surveillance right axillary ultrasound for 6 months. She may return sooner if new issues arise. 12/23/2022: 3-month follow-up with no new concerning symptoms. She is now 2-1/2 years from diagnosis and nearly 1 year from completion of Nivolumab adjuvant therapy. Restaging CT chest abdomen pelvis shows no evidence of metastatic disease. We will change follow-up to every 4 months for right axillary ultrasound (next due in April 2023) and we will continue to follow ultrasounds every 4 months and defer restaging CT chest abdomen pelvis to annual unless new symptoms arise. Patient is in agreement with this plan over this low complexity 25-minute visit to review symptoms, imaging noted above, and labs after completing immunotherapy. 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 She has no headaches or visual changes and we repeated her MRI of brain for surveillance at 6 months in June 2021--no interval change of prominent pituitary stalk. We may follow for symptoms only. (3) Diabetes mellitus Qualifiers: Chronic kidney disease stage: stage 1 Patient has a known history of diabetes mellitus and in 12/2020 she had diffuse uptake in liver on PET/CT. This was due to her hyperglycemia, no issues during her immunotherapy. Followup PET/CT with no abnormal uptake in liver. All further restaging studies with CT CAP with contrast instead. Most recent creatinine normal. - Chemo Plan Chemo Plan (Dose, Rate, Freq): Nivolumab 480 mg IV every 4 weeks for 12 cycles, completed 01/2022. Number of Cycles: 12 Goal of Treatment: Curative - Time with Patient Time Spent with Patient (Follow Up Visit): 25 minutes - Low complexity, exam, lab review, radiology review CT chest abdomen pelvis, and follow-up plan Coordination of Care & Counseling Time: Greater than 50% of time spent with patient was for coordination of care (as documented) and [id number] counseling of patient and/or family. Dictated By: Rose Ohara MD DD/ 4 Signed By: <Electronically signed by MD Rose Ohara> 12/23/22 [address] [facility] Work Phone: [phone] Progress note Author Rose Ohara [facility] September 23, 2022 10:21am Note Date/Time September 23, 2022 8:36am [facility] [place] [address] Hem/Onc Follow Up Note - OP Signed Patient: Tosha Mcneal MR#: [id number] : 1950 Acct:[id number] Age/Sex: 71 / F Type: REG RCR Copies to: DO Mohan Haddad MD~ Subjective Date/Time of Service: Date of Service: 09/23/2022 Time of Service: 08:35 Chief Complaint: Patient is here today for a 3 month follow up to go over labs and extremity ultrasound. No new concerns HPI: 09/23/2022: Tosha is here for 3 month followup and review of exam and surveillance right axillary ultrasound. She was seen by dermatology 1 month agowith no new findings. Right axillary ultrasound does not show any concerning lymph nodes in size or containing a pathologically thickened cortex. Her laboratories are unremarkable and no concerning symptoms off immunotherapy sinceJanuary 2022. Next follow-up with restaging CT chest abdomen pelvis in 3 months, sooner if new concerns arise. Low complexity 20-minute follow-up visit. 07/01/2022: 3 month followup after completing adjuvant nivolumab for stage III right posterior arm melanoma 5 months ago. Unremarkable skin exam on dermatology followup. No adenopathy, followup CT Chest/Abdomen/Pelvis shows no distant metastasis. Next f/u with ultrasound right axilla in 3 months with labs. Low complexity 20 minute visit to review imaging. Low complexity 20 minute followup visit. 03/31/2022: Here for follow-up after last dose of nivolumab adjuvant therapy for stage III right posterior arm melanoma given 01/24/2022. No immunotherapy related toxicities. Recently saw dermatology with no evidence of recurrence. We reviewed her right axillary ultrasound that showed no adenopathy. She will be due for bidirectional imaging with CT chest abdomen pelvis in 3 months and surveillance exam at that time. Low complexity 15-minute visit. 12/30/2021: 3 month followup on Nivolumab adjuvant therapy for stage III right posterior arm melanoma. Continues to have no immunotherapy related toxicities. Continues dermatology followup every [address] CAP without recurrence. One more month of adjuvant Nivolumab then f/u 3 months with CBC, CMP, LDH, and TSH with surveillance axillary US. Low complexity 15 min visit. 09/30/2021: 3 month followup on Nivolumab adjuvant therapy for stage III right posterior arm melanoma. Continues to have no immunotherapy related toxicities. Now following with dermatology at [facility] with no recurrence on skin exam. Surveillance ultrasound right axilla without recurrence. She will have routing f/u with [place] in [address] CAP and labs for surveillance on immunotherapy. 06/29/2021: 3 month followup on Nivolumab adjuvant therapy for stage III right posterior arm melanoma. She still notes no infusion reactions, rashes, diarrhea, dyspnea or immunotherapy related toxicities. Interestingly she does not have any routine follow-up with dermatology, despite her diagnosis of melanoma. She had surveillance right axillary US showing no suspicious adenopathy. She had a repeat whole body FDG PET/CT 06/17/2021, which both showedno evidence of metastatic disease. No abnormal uptake in the liver. There weremultiple sites of mild FDG uptake in musculoskeletal system (L3/4, right ankle, right wrist carpal tunnel) and subcutaneous left lower leg with no associated skin lesion or nodule. I reassured the patient this is likely due to degenerative changes and will continue to follow. 06/22/2021 MRI of brain showed a prominent pituitary stalk without mass, stable from prior imaging. I will continue monthly Nivolumab and followup in 3 months, sooner prn. We will also refer to dermatology for skin surveillance. 03/23/2021: Tosha is here for 1 month follow-up after starting adjuvant nivolumab for stage III right posterior arm melanoma. She has tolerated her initial therapy well without infusion reactions, rashes, diarrhea, dyspnea, or any other immunotherapy toxicities. Her baseline laboratories were normal and follow-up labs prior to her second dose today showed borderline elevated total bilirubin of 1.4 which will be followed. Normal thyroid testing and ACTH is pending. Of note she had her sentinel lymph node dissection in late November andwe will set up her 4-month follow-up surveillance ultrasound this month and she will be contacted with the results. Of note her MRI of brain her baseline did show borderline enlargement of the pituitary without mass and all of her pituitary labs have been unremarkable. She does not have any headaches or visual changes but was advised to watch for any of these symptoms and we would reimage her sooner. Otherwise she will be evaluated with repeat PET/CT and MRI of brain for surveillance of uptake in the liver with negative liver ultrasound in January and her borderline enlargement of the pituitary noted on baseline study. Patient expressed understanding. PREVIOUS HISTORY: This is a 71-year-old lady referred here by Dr. Hernando Mccartney. She follows with Dr. Wild Centeno. 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 There was ulceration with tumor infiltrating lymphocytes but no lymphovascular invasion. There was positive margins involved. She was referred to general surgery with Dr. Hernando Mccartney who proceeded with wide local excision 09/05/2020 at [facility]. Outside review at [facility] showed at least 2.1 cm Breslow depth melanoma with 2 cm negative margins. She was referred to Dr. Cedrick Berger at [facility]. Right axillary sentinel lymph node biopsy performed 11/28/2020 revealed 1 of 2 lymph nodes positive for micrometastatic involvement without extracapsular extension. Greatest focus of disease was 0.01mm in dimension. The patient was scheduled for PET/CT for metastatic staging on12/26/2020: This result revealed multifocal hypermetabolic uptake of the liver concerning for metastatic disease. She was also noted to have moderate right hydronephrosis and hydroureter. She was scheduled for follow-up liver ultrasound on 01/09/2021 which was unremarkable with no visible liver lesion. Her case was presented at [facility] cutaneous tumor board on 1prior to her metastatic staging. Discussion of referral to medical oncology fordiscussion of immunotherapy. The patient is now returning for medical oncology follow-up after review of all prior pathology and imaging. BRAF status is stillpending. She has healed well. She is a 10-year history of diabetes. She resides in [facility]. Today we reviewed immunotherapy counseling for nivolumab. Although PET/CT was indeterminate for metastatic disease to liver, negative ultrasound warrants treatment of this for curative intent. Common toxicities were reviewed to include infusion reactions, rash, fatigue, diarrhea, visual changes, abnormalities of thyroid/adrenal/pituitary function, pancreatitis, and other autoimmune toxicities. Other toxicities may include pneumonitis, neurologic, hepatic and renal toxicities. The patient signed informed consent and will follow-up as directed. - Summary of Therapies Summary of Therapies: 1. Initial wide local excision at [facility] 09/05/[address] Hernando Mccartney 2. Right sentinel lymph node biopsy 11/28/2020 at [facility] by Dr. Cedrick Berger 3. Delay of immunotherapy due to work-up of possible metastatic disease of liver on PET. Brain MRI returned with no evidence of metastatic disease to brain. Liver ultrasound showed no liver lesions. Abnormalities of FDG avidity on PET/CT are felt to be due to artifact from diabetes. --Cycle 1 day 1 02/23/2021 for adjuvant nivolumab 480 mg IV every 4 weeks for 12 cycles. Last cycle early January 2022, then surveillance. ROS Details: All systems reviewed & no additional complaints except as documented Subjective/ROS - Narrative: CONSTITUTIONAL: Negative for fatigue, negative for fever or night sweats. HEAD AND NECK: Negative for changes in hearing and vision. Negative for mouth ulcers, nasal congestion and nasal drainage. PULMONARY: Negative for chest pain, cough and dyspnea. CARDIOVASCULAR: Negative for claudication and irregular heartbeat/palpitations. GASTROINTESTINAL: Negative for abdominal pain, constipation, decreased appetite,diarrhea, nausea, and vomiting. GENITOURINARY: Negative for dysuria and hematuria. ENDOCRINE: Negative for cold intolerance and heat intolerance. CENTRAL NERVOUS SYSTEM: Negative for gait disturbance and headache. No focal motor or sensory abnormalities. PSYCHIATRIC: Negative for anxiety or depression. DERMATOLOGICAL: Negative for pruritus and rash. Negative for suspicious skin lesions. Well-healed from wide local excision right arm and right axillary sentinel lymph node biopsy. MUSCULOSKELETAL: Negative for back pain and bone/joint symptoms. HEMATOLOGICAL: Negative for bleeding and easy bruising. Negative for history of transfusion or thromboembolic disease ALLERGY: Negative for environmental allergies and food allergies. PMF - History Attestation statement: The following information was validated with the patient. Source: Old Records Reviewed - Medical History Medical History: Medical History (Last Reviewed 09/23/22 @ 10:17 by Rose Ohara MD) Arm fracture, left Arthritis Carpal tunnel syndrome on right s/p suurgery Diabetes mellitus, type 2 Gout H/O pilonidal cyst Hypercholesteremia Hypertension Osteoporosis - Surgical History Surgical History: Surgical History (Last Reviewed 09/23/22 @ 10:17 by Rose Ohara MD) H/O repair of left rotator cuff History of phacoemulsification of cataract of both eyes with intraocular lens implantation History of tubal ligation - Family History Family History: Family History (Last Reviewed 09/23/22 @ 10:17 by Rose Ohara MD) Mother CVA (cerebral vascular accident) Father Leukemia - Social History Smoking Status: Never smoker Substance Use Type: None Home Medications & Allergies Allergies No Known Allergies Allergy (Verified 09/23/22 08:22) Home Medications alendronate 35 mg tablet 35 mg PO QWEEK osteoporosis 04/11/19 [History Confirmed 09/23/22] amlodipine 5 mg tablet 5 mg PO DAILY HTN 04/11/19 [History Confirmed 09/23/22] carvedilol 25 mg tablet 25 mg PO BID HTN 04/11/19 [History Confirmed 09/23/22] dulaglutide 1.5 mg/0.5 mL subcutaneous pen injector 0.75 mg subcut QWEEK DIABETES 04/11/19 [History Confirmed 09/23/22] hydrochlorothiazide 25 mg tablet 25 mg PO DAILY 04/11/19 [History Confirmed 09/23/22] lisinopril 40 mg tablet 40 mg PO DAILY htn 04/11/19 [History Confirmed 09/23/22] metformin 1,000 mg tablet 1,000 mg PO BID diabetes 04/11/19 [History Confirmed 09/23/22] potassium chloride 20 mEq tablet,extended release 20 meq PO DAILY hypokalemia 04/11/19 [History Confirmed 09/23/22] rosuvastatin 10 mg tablet 10 mg PO DAILY hypercholesterolemia 04/11/19 [History Confirmed 09/23/22] vit C 50 mg-E 15 unit-zinc cit 4.5 mg-lutein 2.5 mg-zeaxan chew tablet ([employer] [facility]) 1 tab PO DAILY eye health 04/11/19 [History Confirmed 09/23/22] aspirin 81 mg tablet,delayed release 81 mg PO DAILY 10/01/20 [History Confirmed 09/23/22] spironolactone 25 mg tablet 25 mg PO DAILY 12/30/21 [History Confirmed 09/23/22] furosemide 40 mg tablet (Lasix) 40 mg PO DAILY 01/11/22 [History Confirmed 09/23/22] dapagliflozin 5 mg tablet (Farxiga) 5 mg PO DAILY 03/31/22 [History Confirmed 09/23/22] Objective - Height/Weight Height/Weight: Height 5 ft 2.2 in Weight 99.9 kg BSA for Today's Weight 2.06 - Vital Signs Vital Signs: 09/23/22 08:25 Temperature 97.8 F Pulse Rate [Left Brachial] 68 Respiratory Rate 16 Blood Pressure [Left Arm] 153/66 H 02 Sat by Pulse Oximetry 94 L Oxygen Delivery Method Room Air - Pain Left Knee Pain Intensity: 5 - Distress Screening Distress Screen Results: RN Distress Screening Start: 02/23/21 11:34 Freq: Q30D Status: Active Protocol: Document 06/29/21 10:47 AL (Rec: 06/29/21 10:49 AL [id number]) Distress Screening Distress Score: 8 Emotional Concerns Worry Comments Patient is very nervous about test results. Distress Screening Total 8 Distress score of 4 or more discussed Refused with patient? Distress screening follow up: Patient very nervous about test results, intervention denied. Physical Exam Narrative: CONSTITUTIONAL: The patient is in no acute distress. HEAD / FACE: Normocephalic. EYES: Pupils are equal and reactive to light. Conjunctivae and lids are benign in appearance. Ocular movement intact. EARS: Hearing grossly intact. NOSE / MOUTH / THROAT: Nose, mouth, tongue and oropharynx are benign in appearance. No signs of inflammation. NECK / THYROID: Neck is supple. Thyroid is symmetrical, without thyromegaly, masses or palpable nodules. LYMPHATIC: No palpable cervical, supraclavicular, axillary, or inguinal adenopathy. RESPIRATORY: Normal to inspection. Lungs clear to auscultation and percussion. No wheezing, rales, rhonchi or rubs. Normal effort. CARDIOVASCULAR: Regular rate and rhythm. No murmurs, gallops, or rubs. VASCULAR: Carotid, radial, femoral and pedal pulses present bilaterally. No bruits. ABDOMEN: Bowel sounds normoactive. Soft, nontender and non-distended. No hepatosplenomegaly. No masses. GENITOURINARY: No CVA tenderness. No suprapubic fullness or tenderness. No groinadenopathy. No evidence of hernias. INTEGUMENTARY: The skin is unremarkable. No rashes. No suspicious lesions. BACK / SPINE: The back is nontender. MUSCULOSKELETAL: Normal musculature, no joint deformities or abnormalities, normal range of motion for all four extremities. The right upper arm lesion is well healed from wide local excision. Right axilla well-healed without palpableadenopathy. EXTREMITIES: No edema, cyanosis or clubbing. No Gia sign. NEUROLOGICAL: Alert and oriented. Cranial nerves intact. No gross motor or sensory deficits. PSYCHIATRIC: No anxiety or evidence of depression. - ECOG Performance Status ECOG Score: 0 Results - Labs Labs: Diagram of Most Recent CBC and CMP 09/22/22 09:54 09/22/22 09:54 Labs - Last 7 Days 09/22/22 09:54: PHA Creatinine Clear 70.04, Sodium 135 L, Potassium 4.3, Chloride 99, Carbon Dioxide 29.3, Anion Gap 11.0, BUN 16, Creatinine 0.80, Est GFR ( Amer) > 60, Est GFR (Non-Af Amer) > 60, Glucose 113 H, Calcium 9.2,Total Bilirubin 1.2, AST 17, ALT 16, Alkaline Phosphatase 45, Lactate Dehydrogenase 106, Total Protein 6.5, Albumin 3.7, Globulin 2.8, Albumin/Globulin Ratio 1.3 09/22/22 09:54: Corrected WBC 6.9, Uncorrected WBC Count 6.9, RBC 4.79, Hgb 13.9, Hct 43.2, MCV 90.2, MCH 29.0, MCHC 32.2, RDW 14.7, Plt Count 227, MPV 8.0,Neut % (Auto) 65.7, Lymph % (Auto) 21.6, [place] % (Auto) 9.7, Eos % (Auto) 2.0, Baso % (Auto) 1.0, Neut # (Auto) 4.5, Lymph # (Auto) 1.5, [place] # (Auto) 0.7, Eos# (Auto) 0.1, Baso # (Auto) 0.1, Nucleated RBC % (auto) 0.1 - Impressions US extremity nonvascular 09/21/2022 9:43 AM SIGNS AND SYMPTOMS: Surveillance melanoma, right Axilla COMPARISON: 03/29/2022, 09/24/2021, and 03/27/2021 FINDINGS: Grayscale and color Doppler sonographic images along the right axillawere obtained. Within the right axilla there are benign-appearing lymph nodes the largest of which measures 1.9 x 1.3 x 1.7 cm in greatest dimension with a large central fatty hilum and thin peripheral hypoechoic cortex. No pathologically enlarged lymph nodes are noted. No abnormal thickened lymph node cortex is visualized. There is no evidence of cyst, mass, architectural distortion, or atypical calcification. US/US extremity nonvascular IMPRESSION: Redemonstration of multiple benign-appearing axillary lymph nodes on the right none of which appear to be pathologically enlarged or contain a pathologically thickened cortex. Close clinical observation is recommended. ASSESSMENT: BIRADS-2 Benign RECOMMENDATION: Close clinical observation of these lymph nodes is recommended with repeat imaging as symptoms warrant. Impression dictated by: Francesco Boggs M.D.09/21/2022 10:15 AM Assessment and Plan - TNM Staging Staging: Stage: pIIIC ([id number]) Melanoma 5 year survival: 69% (1) Melanoma Qualifiers: Melanoma location: upper extremity including shoulder Laterality: right Qualified Code(s): C43.61 - Malignant melanoma of right upper limb, including shoulder The patient is a 71-year-old lady who originally presented in August 2020 with ulcerated right upper arm T3 NX MX melanoma. There were tumor infiltrating lymphocytes but no evidence of lymphovascular invasion. She underwent wide local excision with negative margins that revealed at least 2.1 mm wide local excision, but was subsequently referred for right axillary sentinel lymph node biopsy on 11/28/2020 showing 1-2 nodes positive for micrometastatic involvement without extracapsular extension. Dr. Cedrick Berger at [facility] surgical oncology group ordered metastatic staging with MRI of brain which revealed borderline enlargement of pituitary but was negative for metastatic disease. PET/CT showed indeterminate uptake in the hepatic parenchyma. Subsequent liver ultrasound was negative for metastatic disease. 02/23/2021: Patient started adjuvant immunotherapy with checkpoint inhibitor nivolumab 480 mg IV every 4 weeks for 12 cycles. At follow-up 03/23/2021 she hadno immunotherapy related toxicities noted by symptoms, exam, or laboratories. 06/29/2021: No concerning symptoms for immunotherapy toxicity. We continue surveillance of right axilla with followup axillary ultrasound in 3 months--March 2021 ultrasound was reviewed with patient showing no evidence of recurrence, and6- month follow-up PET/CT and follow-up brain MRI in June 2021 reviewed--no concerning findings. --Musculoskeletal sites with SUV 2.8-4, patient reassured and we will perform one further f/u PET/CT in 6 months to determine if uptake still noted in these sites requiring biopsy. 09/30/2021: Still without immunotherapy toxicity. Right axillary ultrasound without abnormal adenopathy. Restaging CT CAP for restaging ordered for Dec 2021 followup visit. 12/30/2021: No concerning symptoms for immunotherapy toxicity. CT CAP for restaging shows no evidence of distant metastases. End of 1 year immunotherapy 01/2022. We continue surveillance of right axilla with followup axillary ultrasound in 3 months--March 2022 ultrasound ordered with f/u labs CBC, CMP, LDH,and TSH. 04/01/2022: Here for 3-month follow-up after completing 1 year of immunotherapy for stage III melanoma in January 2022. Surveillance right axillary ultrasound without evidence of recurrence. Her only change in laboratories is mild increase of creatinine to 1.4 from prior 1.1. No prior history of renal insufficiency and likely medical renal disease. She was encouraged to hydrate and follow-up with primary physician. Next follow-up with me for CT chest abdomen pelvis with surveillance labs CBC, CMP, and LDH in 3 months or sooner asneeded. 07/01/2022: 3 month followup, now 5 months from completion of immunotherapy for Stage III melanoma. Restaging [address] CAP shows no metastases. Unremarkable exam and labs. Next follow-up with me in 3 months unless new issues arise. 09/23/2022: 3-month follow-up with no new concerning symptoms. Dermatology follow-up shows no new skin lesions. No evidence of recurrence at primary site. Surveillance ultrasound right axilla without enlarging lymph nodes or pathologic thickening of cortex. We will continue surveillance with follow-up symptom review, exam, and 3-month CT chest abdomen pelvis to monitor for metastatic disease and defer next surveillance right axillary ultrasound for 6 months. She may return sooner if new issues arise. Patient is in agreement with this plan over this low complexity 20-minute visit to review symptoms, imaging noted above, and labs after completing immunotherapy. 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 She has no headaches or visual changes and we repeated her MRI of brain for surveillance at 6 months in June 2021--no interval change of prominent pituitary stalk. We may follow for symptoms only. (3) Diabetes mellitus Qualifiers: Chronic kidney disease stage: stage 1 Patient has a known history of diabetes mellitus and in 12/2020 she had diffuse uptake in liver on PET/CT. This was due to her hyperglycemia, no issues during her immunotherapy. Followup PET/CT with no abnormal uptake in liver. All further restaging studies with CT CAP with contrast instead. Most recent creatinine normal. - Chemo Plan Chemo Plan (Dose, Rate, Freq): Nivolumab 480 mg IV every 4 weeks for 12 cycles, completed 01/2022. Number of Cycles: 12 Goal of Treatment: Curative - Time with Patient Time Spent with Patient (Follow Up Visit): Less than 20 minutes - Low complexity, exam, lab review, and radiology review Coordination of Care & Counseling Time: Greater than 50% of time spent with patient was for coordination of care (as documented) and [id number] counseling of patient and/or family. Dictated By: Rose Ohara MD DD/ [id number] Signed By: <Electronically signed by MD Rose Ohara> 09/23/22 [address] [facility] Work Phone: 1(866) 784-124308-25-2022 Progress note Author Rose Ohara [facility] July 01, 2022 8:35pm Note Date/Time July 01, 2022 10 :39am [facility] at [address] [address] Hem/Onc Follow Up Note - OP Signed Patient: Tosha Mcneal MR#: [id number] : 1950 Acct:[id number] Age/Sex: 71 / F Type: REG RCR Copies to: DO Mohan Haddad MD~ Subjective Date/Time of Service: Date of Service: 07/01/2022 Time of Service: 10:38 Chief Complaint: Patient is here today for 3 month follow up for melanoma of right arm and go over labs HPI: 07/01/2022: 3 month followup after completing adjuvant nivolumab for stage III right posterior arm melanoma 5 months ago. Unremarkable skin exam on dermatology followup. No adenopathy, followup CT Chest/Abdomen/Pelvis shows no distant metastasis. Next f/u with ultrasound right axilla in 3 months with labs. Low complexity 20 minute visit to review imaging. Low complexity 20 minute followup visit. 03/31/2022: Here for follow-up after last dose of nivolumab adjuvant therapy for stage III right posterior arm melanoma given 01/24/2022. No immunotherapy related toxicities. Recently saw dermatology with no evidence of recurrence. We reviewed her right axillary ultrasound that showed no adenopathy. She will be due for bidirectional imaging with CT chest abdomen pelvis in 3 months and surveillance exam at that time. Low complexity 15-minute visit. 12/30/2021: 3 month followup on Nivolumab adjuvant therapy for stage III right posterior arm melanoma. Continues to have no immunotherapy related toxicities. Continues dermatology followup every [address] CAP without recurrence. One more month of adjuvant Nivolumab then f/u 3 months with CBC, CMP, LDH, and TSH with surveillance axillary US. Low complexity 15 min visit. 09/30/2021: 3 month followup on Nivolumab adjuvant therapy for stage III right posterior arm melanoma. Continues to have no immunotherapy related toxicities. Now following with dermatology at [facility] with no recurrence on skin exam. Surveillance ultrasound right axilla without recurrence. She will have routing f/u with me in [address] CAP and labs for surveillance on immunotherapy. 06/29/2021: 3 month followup on Nivolumab adjuvant therapy for stage III right posterior arm melanoma. She still notes no infusion reactions, rashes, diarrhea, dyspnea or immunotherapy related toxicities. Interestingly she does not have any routine follow-up with dermatology, despite her diagnosis of melanoma. She had surveillance right axillary US showing no suspicious adenopathy. She had a repeat whole body FDG PET/CT 06/17/2021, which both showedno evidence of metastatic disease. No abnormal uptake in the liver. There weremultiple sites of mild FDG uptake in musculoskeletal system (L3/4, right ankle, right wrist carpal tunnel) and subcutaneous left lower leg with no associated skin lesion or nodule. I reassured the patient this is likely due to degenerative changes and will continue to follow. 06/22/2021 MRI of brain showeda prominent pituitary stalk without mass, stable from prior imaging. I will continue monthly Nivolumab and followup in 3 months, sooner prn. We will also refer to dermatology for skin surveillance. 03/23/2021: Tosha is here for 1 month follow-up after starting adjuvant nivolumab for stage III right posterior arm melanoma. She has tolerated her initial therapy well without infusion reactions, rashes, diarrhea, dyspnea, or any other immunotherapy toxicities. Her baseline laboratories were normal and follow-up labs prior to her second dose today showed borderline elevated total bilirubin of 1.4 which will be followed. Normal thyroid testing and ACTH is pending. Of note she had her sentinel lymph node dissection in late November andwe will set up her 4-month follow-up surveillance ultrasound this month and she will be contacted with the results. Of note her MRI of brain her baseline did show borderline enlargement of the pituitary without mass and all of her pituitary labs have been unremarkable. She does not have any headaches or visual changes but was advised to watch for any of these symptoms and we would reimage her sooner. Otherwise she will be evaluated with repeat PET/CT and MRI of brainfor surveillance of uptake in the liver with negative liver ultrasound in January and her borderline enlargement of the pituitary noted on baseline study. Patient expressed understanding. PREVIOUS HISTORY: This is a 71-year-old lady referred here by Dr. Hernando Mccartney. She follows with Dr. Wild Centeno. 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 There was ulceration with tumor infiltrating lymphocytes but no lymphovascular invasion. There was positive margins involved. She was referred to general surgery with Dr. Hernando Mccartney who proceeded with wide local excision 09/05/2020 at [facility]. Outside review at [facility] showed at least 2.1 cm Breslow depth melanoma with 2 cm negative margins. She was referred to Dr. Cedrick Berger at [facility]. Right axillary sentinel lymph node biopsy performed 11/28/2020 revealed 1 of 2 lymph nodes positive for micrometastatic involvement without extracapsular extension. Greatest focus of disease was 0.01mm in dimension. The patient was scheduled for PET/CT for metastatic staging on12/26/2020: This result revealed multifocal hypermetabolic uptake of the liver concerning for metastatic disease. She was also noted to have moderate right hydronephrosis and hydroureter. She was scheduled for follow-up liver ultrasound on 01/09/2021 which was unremarkable with no visible liver lesion. Her case was presented at [facility] cutaneous tumor board on 1prior to her metastatic staging. Discussion of referral to medical oncology fordiscussion of immunotherapy. The patient is now returning for medical oncology follow-up after review of all prior pathology and imaging. BRAF status is stillpending. She has healed well. She is a 10-year history of diabetes. She resides in [facility]. Today we reviewed immunotherapy counseling for nivolumab. Although PET/CT was indeterminate for metastatic disease to liver, negative ultrasound warrants treatment of this for curative intent. Common toxicities were reviewed to include infusion reactions, rash, fatigue, diarrhea, visual changes, abnormalities of thyroid/adrenal/pituitary function, pancreatitis, and other autoimmune toxicities. Other toxicities may include pneumonitis, neurologic, hepatic and renal toxicities. The patient signed informed consent and will follow-up as directed. - Summary of Therapies Summary of Therapies: 1. Initial wide local excision at [facility] 09/05/[address] Hernando Mccartney 2. Right sentinel lymph node biopsy 11/28/2020 at [facility] by Dr. Cedrick Berger 3. Delay of immunotherapy due to work-up of possible metastatic disease of liver on PET. Brain MRI returned with no evidence of metastatic disease to brain. Liver ultrasound showed no liver lesions. Abnormalities of FDG avidity on PET/CT are felt to be due to artifact from diabetes. --Cycle 1 day 1 02/23/2021 for adjuvant nivolumab 480 mg IV every 4 weeks for 12 cycles. Last cycle early January 2022, then surveillance. ROS Details: All systems reviewed & no additional complaints except as documented Subjective/ROS - Narrative: CONSTITUTIONAL: Negative for fatigue, negative for fever or night sweats. HEAD AND NECK: Negative for changes in hearing and vision. Negative for mouth ulcers, nasal congestion and nasal drainage. PULMONARY: Negative for chest pain, cough and dyspnea. CARDIOVASCULAR: Negative for claudication and irregular heartbeat/palpitations. GASTROINTESTINAL: Negative for abdominal pain, constipation, decreased appetite,diarrhea, nausea, and vomiting. GENITOURINARY: Negative for dysuria and hematuria. ENDOCRINE: Negative for cold intolerance and heat intolerance. CENTRAL NERVOUS SYSTEM: Negative for gait disturbance and headache. No focal motor or sensory abnormalities. PSYCHIATRIC: Negative for anxiety or depression. DERMATOLOGICAL: Negative for pruritus and rash. Negative for suspicious skin lesions. Well-healed from wide local excision right arm and right axillary sentinel lymph node biopsy. MUSCULOSKELETAL: Negative for back pain and bone/joint symptoms. HEMATOLOGICAL: Negative for bleeding and easy bruising. Negative for history of transfusion or thromboembolic disease ALLERGY: Negative for environmental allergies and food allergies. PMFSH - History Attestation statement: The following information was validated with the patient. Source: Old Records Reviewed - Medical History Medical History: Medical History (Last Reviewed 07/01/22 @ 20:23 by Rose Ohara MD) Arm fracture, left Arthritis Carpal tunnel syndrome on right s/p suurgery Diabetes mellitus, type 2 Gout H/O pilonidal cyst Hypercholesteremia Hypertension Osteoporosis - Surgical History Surgical History: Surgical History (Last Reviewed 07/01/22 @ 20:23 by Rose Oahra MD) H/O repair of left rotator cuff History of phacoemulsification of cataract of both eyes with intraocular lens implantation History of tubal ligation - Family History Family History: Family History (Last Reviewed 07/01/22 @ 20:23 by Rose Ohara MD) Mother CVA (cerebral vascular accident) Father Leukemia - Social History Smoking Status: Never smoker Substance Use Type: None Home Medications & Allergies Allergies No Known Allergies Allergy (Verified 07/01/22 10:30) Home Medications alendronate 35 mg tablet 35 mg PO QWEEK osteoporosis 04/11/19 [History Confirmed 07/01/22] amlodipine 5 mg tablet 5 mg PO DAILY HTN 04/11/19 [History Confirmed 07/01/22] carvedilol 25 mg tablet 25 mg PO BID HTN 04/11/19 [History Confirmed 07/01/22] dulaglutide 1.5 mg/0.5 mL subcutaneous pen injector 0.75 mg subcut QWEEK DIABETES 04/11/19 [History Confirmed 07/01/22] hydrochlorothiazide 25 mg tablet 25 mg PO DAILY 04/11/19 [History Confirmed 07/01/22] lisinopril 40 mg tablet 40 mg PO DAILY htn 04/11/19 [History Confirmed 07/01/22] metformin 1,000 mg tablet 1,000 mg PO BID diabetes 04/11/19 [History Confirmed 07/01/22] potassium chloride 20 mEq tablet,extended release 20 meq PO DAILY hypokalemia 04/11/19 [History Confirmed 07/01/22] rosuvastatin 10 mg tablet 10 mg PO DAILY hypercholesterolemia 04/11/19 [History Confirmed 07/01/22] vit C 50 mg-E 15 unit-zinc cit 4.5 mg-lutein 2.5 mg-zeaxan chew tablet ([employer] [facility]) 1 tab PO DAILY eye health 04/11/19 [History Confirmed 07/01/22] aspirin 81 mg tablet,delayed release 81 mg PO DAILY 10/01/20 [History Confirmed 07/01/22] spironolactone 25 mg tablet 25 mg PO DAILY 12/30/21 [History Confirmed 07/01/22] furosemide 40 mg tablet (Lasix) 40 mg PO DAILY 01/11/22 [History Confirmed 07/01/22] dapagliflozin 5 mg tablet (Farxiga) 5 mg PO DAILY 03/31/22 [History Confirmed 07/01/22] Objective - Height/Weight Height/Weight: Height 5 ft 2.2 in Weight 99.337 kg BSA for Today's Weight 2.06 - Vital Signs Vital Signs: 07/01/22 10:32 Temperature 97.8 F Pulse Rate [Left Brachial] 55 L Respiratory Rate 16 Blood Pressure [Left Arm] 154/75 H 02 Sat by Pulse Oximetry 98 Oxygen Delivery Method Room Air - Pain Left Knee Pain Intensity: 5 - Distress Screening Distress Screen Results: RN Distress Screening Start: 02/23/21 11:34 Freq: Q30D Status: Active Protocol: Document 06/29/21 10:47 AL (Rec: 06/29/21 10:49 AL [id number]) Distress Screening Distress Score: 8 Emotional Concerns Worry Comments Patient is very nervous about test results. Distress Screening Total 8 Distress score of 4 or more discussed Refused with patient? Distress screening follow up: Patient very nervous about test results, intervention denied. Physical Exam Narrative: CONSTITUTIONAL: The patient is in no acute distress. HEAD / FACE: Normocephalic. EYES: Pupils are equal and reactive to light. Conjunctivae and lids are benign in appearance. Ocular movement intact. EARS: Hearing grossly intact. NOSE / MOUTH / THROAT: Nose, mouth, tongue and oropharynx are benign in appearance. No signs of inflammation. NECK / THYROID: Neck is supple. Thyroid is symmetrical, without thyromegaly, masses or palpable nodules. LYMPHATIC: No palpable cervical, supraclavicular, axillary, or inguinal adenopathy. RESPIRATORY: Normal to inspection. Lungs clear to auscultation and percussion. No wheezing, rales, rhonchi or rubs. Normal effort. CARDIOVASCULAR: Regular rate and rhythm. No murmurs, gallops, or rubs. VASCULAR: Carotid, radial, femoral and pedal pulses present bilaterally. No bruits. ABDOMEN: Bowel sounds normoactive. Soft, nontender and non-distended. No hepatosplenomegaly. No masses. GENITOURINARY: No CVA tenderness. No suprapubic fullness or tenderness. No groinadenopathy. No evidence of hernias. INTEGUMENTARY: The skin is unremarkable. No rashes. No suspicious lesions. BACK / SPINE: The back is nontender. MUSCULOSKELETAL: Normal musculature, no joint deformities or abnormalities, normal range of motion for all four extremities. The right upper arm lesion is well healed from wide local excision. Right axilla well-healed without palpableadenopathy. EXTREMITIES: No edema, cyanosis or clubbing. No Gia sign. NEUROLOGICAL: Alert and oriented. Cranial nerves intact. No gross motor or sensory deficits. PSYCHIATRIC: No anxiety or evidence of depression. - ECOG Performance Status ECOG Score: 1 Results - Labs Labs: Diagram of Most Recent CBC and CMP 06/29/22 08:34 06/29/22 08:34 Labs - Last 7 Days 06/29/22 08:34: PHA Creatinine Clear 64.07, Sodium 139, Potassium 4.9, Chloride 102, Carbon Dioxide 24.6, BUN 21, Creatinine 0.87, Est GFR ( Amer) > 60, Est GFR (Non-Af Amer) > 60, Glucose 130 H, Calcium 10.2, Total Bilirubin 1.2, AST 26, ALT 27, Alkaline Phosphatase 56, Lactate Dehydrogenase 131, Total Protein 7.1, Albumin 4.1, Globulin 3.0, Albumin/Globulin Ratio 1.4 06/29/22 08:34: Corrected WBC 8.4, Uncorrected WBC Count 8.4, RBC 5.04 H, Hgb 15.0, Hct 45.9, MCV 91.0, MCH 29.8, MCHC 32.8, RDW 14.9, Plt Count 226, MPV 7.9,Neut % (Auto) 66.8, Lymph % (Auto) 18.8, [place] % (Auto) 9.5, Eos % (Auto) 3.7, Baso % (Auto) 1.2, Neut # (Auto) 5.6, Lymph # (Auto) 1.6, [place] # (Auto) 0.8, Eos #(Auto) 0.3, Baso # (Auto) 0.1, Nucleated RBC % (auto) 0.1 - Impressions CT chest w con, CT abdomen pelvis w con 06/29/2022 8:26 AM SIGN AND SYMPTOMS: Follow-up malignant melanoma TECHNIQUE: Multidetector CT axial slices of the chest, abdomen and pelvis were obtainedwith IV contrast. Multiplanar reformats were performed and viewed on a separate workstation and reviewed to further define anatomy and possible pathology. CT was performed with one or more of the following dose reduction techniques: Automated exposure control, adjustment of the mA and/or kV accordingto patient size, or use of iterative reconstruction technique. COMPARISON: 12/28/2021. FINDINGS: Lower neck: Thyroid gland within normal limits, no supraclavicle adenopathy. Vessels: Atherosclerotic changes are present in the thoracic aorta and iliac vessels. Mediastinum and Shirley: Within normal limits. Heart: Normal size. No pericardial effusion. Airways: Within normal limits Lungs: There is mild dependent atelectasis. There is also mild linear scarring in the lingula. Pleura: Within normal limits. Chest Wall: Within normal limits. Abdomen: Liver: within normal limits. Bile Ducts: Normal caliber. Gallbladder: No calcified gallstones. Normal caliber wall. Pancreas: within normal limits. Spleen: within normal limits. Adrenals: within normal limits. Kidneys: within normal limits. Pelvis: Reproductive Organs: Calcified fibroid in the fundus Ureters: within normal limits. Bladder: within normal limits. Bowel: There are several uncomplicated colonic diverticula. There is a normal appendix in the right lower quadrant. Mesenteric Lymph Nodes: No enlarged mesenteric lymph nodes. Peritoneum: No ascites or free air, no fluid collection. Vessels: Atherosclerotic changes are noted in the abdominal aorta and its branches. Retroperitoneum: within normal limits. Abdominal Wall: within normal limits. Bones: Degenerative changes are noted in the thoracolumbar spine. Degenerative changes are noted in the hips and sacroiliac joints. CT/CT chest w con IMPRESSION: No evidence of recurrent or metastatic disease. No acute cardiopulmonary pathology. No acute intra-abdominal pathology. Impression dictated by: Francesco Boggs M.D.06/29/2022 2:47 PM Assessment and Plan - TNM Staging Staging: Stage: pIIIC ([id number]) Melanoma 5 year survival: 69% (1) Melanoma Qualifiers: Melanoma location: upper extremity including shoulder Laterality: right Qualified Code(s): C43.61 - Malignant melanoma of right upper limb, including shoulder The patient is a 71-year-old lady who originally presented in August 2020 with ulcerated right upper arm T3 NX MX melanoma. There were tumor infiltrating lymphocytes but no evidence of lymphovascular invasion. She underwent wide local excision with negative margins that revealed at least 2.1 mm wide local excision, but was subsequently referred for right axillary sentinel lymph node biopsy on 11/28/2020 showing 1-2 nodes positive for micrometastatic involvement without extracapsular extension. Dr. Cedrick Berger at [facility] surgical oncology group ordered metastatic staging with MRI of brain which revealed borderline enlargement of pituitary but was negative for metastatic disease. PET/CT showed indeterminate uptake in the hepatic parenchyma. Subsequent liver ultrasound was negative for metastatic disease. 02/23/2021: Patient started adjuvant immunotherapy with checkpoint inhibitor nivolumab 480 mg IV every 4 weeks for 12 cycles. At follow-up 03/23/2021 she hadno immunotherapy related toxicities noted by symptoms, exam, or laboratories. 06/29/2021: No concerning symptoms for immunotherapy toxicity. We continue surveillance of right axilla with followup axillary ultrasound in 3 months--March 2021 ultrasound was reviewed with patient showing no evidence of recurrence, and6- month follow-up PET/CT and follow-up brain MRI in June 2021 reviewed--no concerning findings. --Musculoskeletal sites with SUV 2.8-4, patient reassured and we will perform one further f/u PET/CT in 6 months to determine if uptake still noted in these sites requiring biopsy. 09/30/2021: Still without immunotherapy toxicity. Right axillary ultrasound without abnormal adenopathy. Restaging CT CAP for restaging ordered for Dec 2021 followup visit. 12/30/2021: No concerning symptoms for immunotherapy toxicity. CT CAP for restaging shows no evidence of distant metastases. End of 1 year immunotherapy 01/2022. We continue surveillance of right axilla with followup axillary ultrasound in 3 months--March 2022 ultrasound ordered with f/u labs CBC, CMP, LDH,and TSH. 04/01/2022: Here for 3-month follow-up after completing 1 year of immunotherapy for stage III melanoma in January 2022. Surveillance right axillary ultrasound without evidence of recurrence. Her only change in laboratories is mild increase of creatinine to 1.4 from prior 1.1. No prior history of renal insufficiency and likely medical renal disease. She was encouraged to hydrate and follow-up with primary physician. Next follow-up with me for CT chest abdomen pelvis with surveillance labs CBC, CMP, and LDH in 3 months or sooner as needed. 07/01/2022: 3 month followup, now 5 months from completion of immunotherapy for Stage III melanoma. Restaging [address] CAP shows no metastases. Unremarkable exam and labs. Next follow-up with me in 3 months unless new issues arise. Patient is in agreement with this plan over this low complexity 20-minute visit to review symptoms, imaging noted above, and labs after completing immunotherapy. 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 She has no headaches or visual changes and we repeated her MRI of brain for surveillance at 6 months in June 2021--no interval change of prominent pituitary stalk. We may follow for symptoms only. (3) Diabetes mellitus Qualifiers: Chronic kidney disease stage: stage 1 Patient has a known history of diabetes mellitus and in 12/2020 she had diffuse uptake in liver on PET/CT. This was due to her hyperglycemia, no issues during her immunotherapy. Followup PET/CT with no abnormal uptake in liver. All further restaging studies with CT CAP with contrast instead. Most recent creatinine normal. - Chemo Plan Chemo Plan (Dose, Rate, Freq): Nivolumab 480 mg IV every 4 weeks for 12 cycles, completed 01/2022. Number of Cycles: 12 Goal of Treatment: Curative - Time with Patient Time Spent with Patient (Follow Up Visit): 25 minutes - Low complexity, exam, lab review, and radiology Coordination of Care & Counseling Time: Greater than 50% of time spent with patient was for coordination of care (as documented) and [id number] counseling of patient and/or family. Dictated By: Rose Ohara MD DD/ [id number] Signed By: <Electronically signed by MD Rose Ohara> 07/01/222034 [facility] Work Phone: [phone]) 853-558105-26-2022 Progress note Author Rose Ohara [facility] April 01, 2022 1:09pm Note Date/Time March 31, 2022 1:30p [facility] [place] [address] Hem/Onc Follow Up Note - OP Signed Patient: Tosha Mcneal MR#: [id number] : 1950 Acct:[id number] Age/Sex: 71 / F Type: REG RCR Copies to: DO Mohan Haddad MD~ Subjective Date/Time of Service: Date of Service: 03/31/2022 Time of Service: 13:30 Chief Complaint: Patient is here today for 3 month follow up visit for melanoma and go over extremity ultrasound and labs. No new concerns HPI: 03/31/2022: Here for follow-up after last dose of nivolumab adjuvant therapy for stage III right posterior arm melanoma given 01/24/2022. No immunotherapy related toxicities. Recently saw dermatology with no evidence of recurrence. We reviewed her right axillary ultrasound that showed no adenopathy. She will be due for bidirectional imaging with CT chest abdomen pelvis in 3 months and surveillance exam at that time. Low complexity 15-minute visit. 12/30/2021: 3 month followup on Nivolumab adjuvant therapy for stage III right posterior arm melanoma. Continues to have no immunotherapy related toxicities. Continues dermatology followup every [address] CAP without recurrence. One more month of adjuvant Nivolumab then f/u 3 months with CBC, CMP, LDH, and TSH with surveillance axillary US. Low complexity 15 min visit. 09/30/2021: 3 month followup on Nivolumab adjuvant therapy for stage III right posterior arm melanoma. Continues to have no immunotherapy related toxicities. Now following with dermatology at [facility] with no recurrence on skin exam. Surveillance ultrasound right axilla without recurrence. She will have routing f/u with me in [address] CAP and labs for surveillance on immunotherapy. 06/29/2021: 3 month followup on Nivolumab adjuvant therapy for stage III right posterior arm melanoma. She still notes no infusion reactions, rashes, diarrhea, dyspnea or immunotherapy related toxicities. Interestingly she does not have any routine follow-up with dermatology, despite her diagnosis of melanoma. She had surveillance right axillary US showing no suspicious adenopathy. She had a repeat whole body FDG PET/CT 06/17/2021, which both showedno evidence of metastatic disease. No abnormal uptake in the liver. There weremultiple sites of mild FDG uptake in musculoskeletal system (L3/4, right ankle, right wrist carpal tunnel) and subcutaneous left lower leg with no associated skin lesion or nodule. I reassured the patient this is likely due to degenerative changes and will continue to follow. 06/22/2021 MRI of brain showeda prominent pituitary stalk without mass, stable from prior imaging. I will continue monthly Nivolumab and followup in 3 months, sooner prn. We will also refer to dermatology for skin surveillance. 03/23/2021: Tosha is here for 1 month follow-up after starting adjuvant nivolumab for stage III right posterior arm melanoma. She has tolerated her initial therapy well without infusion reactions, rashes, diarrhea, dyspnea, or any other immunotherapy toxicities. Her baseline laboratories were normal and follow-up labs prior to her second dose today showed borderline elevated total bilirubin of 1.4 which will be followed. Normal thyroid testing and ACTH is pending. Of note she had her sentinel lymph node dissection in late November andwe will set up her 4-month follow-up surveillance ultrasound this month and she will be contacted with the results. Of note her MRI of brain her baseline did show borderline enlargement of the pituitary without mass and all of her pituitary labs have been unremarkable. She does not have any headaches or visual changes but was advised to watch for any of these symptoms and we would reimage her sooner. Otherwise she will be evaluated with repeat PET/CT and MRI of brain for surveillance of uptake in the liver with negative liver ultrasound in January and her borderline enlargement of the pituitary noted on baseline study. Patient expressed understanding. PREVIOUS HISTORY: This is a 71-year-old lady referred here by Dr. Hernando Mccartney. She follows with Dr. Wild Centeno. 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 There was ulceration with tumor infiltrating lymphocytes but no lymphovascular invasion. There was positive margins involved. She was referred to general surgery with Dr. Hernando Mccartney who proceeded with wide local excision 09/05/2020 at [facility]. Outside review at [facility] showed at least 2.1 cm Breslow depth melanoma with 2 cm negative margins. She was referred to Dr. Cedrick Berger at [facility]. Right axillary sentinel lymph node biopsy performed11/28/2020 revealed 1 of 2 lymph nodes positive for micrometastatic involvement without extracapsular extension. Greatest focus of disease was 0.01 mm in dimension. The patient was scheduled for PET/CT for metastatic staging on 12/26/2020: This result revealed multifocal hypermetabolic uptake of the liver concerning for metastatic disease. She was also noted to have moderate right hydronephrosis and hydroureter. She was scheduled for follow-up liver ultrasound on 01/09/2021 which was unremarkable with no visible liver lesion. Her case was presented at [facility] cutaneous tumor board on 1prior to her metastatic staging. Discussion of referral to medical oncology fordiscussion of immunotherapy. The patient is now returning for medical oncology follow-up after review of all prior pathology and imaging. BRAF status is stillpending. She has healed well. She is a 10-year history of diabetes. She resides in [facility]. Today we reviewed immunotherapy counseling for nivolumab. Although PET/CT was indeterminate for metastatic disease to liver, negative ultrasound warrants treatment of this for curative intent. Common toxicities were reviewed to include infusion reactions, rash, fatigue, diarrhea, visual changes, abnormalities of thyroid/adrenal/pituitary function, pancreatitis, and other autoimmune toxicities. Other toxicities may include pneumonitis, neurologic, hepatic and renal toxicities. The patient signed informed consent and will follow-up as directed. - Summary of Therapies Summary of Therapies: 1. Initial wide local excision at [facility] 09/05/[address] Hernando Mccartney 2. Right sentinel lymph node biopsy 11/28/2020 at [facility] by Dr. Cedrick Berger 3. Delay of immunotherapy due to work-up of possible metastatic disease of liver on PET. Brain MRI returned with no evidence of metastatic disease to brain. Liver ultrasound showed no liver lesions. Abnormalities of FDG avidity on PET/CT are felt to be due to artifact from diabetes. --Cycle 1 day 1 02/23/2021 for adjuvant nivolumab 480 mg IV every 4 weeks for 12 cycles. Last cycle early January 2022, then surveillance. ROS Details: All systems reviewed & no additional complaints except as documented Subjective/ROS - Narrative: CONSTITUTIONAL: Negative for fatigue, negative for fever or night sweats. HEAD AND NECK: Negative for changes in hearing and vision. Negative for mouth ulcers, nasal congestion and nasal drainage. PULMONARY: Negative for chest pain, cough and dyspnea. CARDIOVASCULAR: Negative for claudication and irregular heartbeat/palpitations. GASTROINTESTINAL: Negative for abdominal pain, constipation, decreased appetite,diarrhea, nausea, and vomiting. GENITOURINARY: Negative for dysuria and hematuria. ENDOCRINE: Negative for cold intolerance and heat intolerance. CENTRAL NERVOUS SYSTEM: Negative for gait disturbance and headache. No focal motor or sensory abnormalities. PSYCHIATRIC: Negative for anxiety or depression. DERMATOLOGICAL: Negative for pruritus and rash. Negative for suspicious skin lesions. Well-healed from wide local excision right arm and right axillary sentinel lymph node biopsy with no residual seroma. No skin lesion or nodule tocorrelate to mild increased FDG uptake proximal to left ankle. MUSCULOSKELETAL: Negative for back pain and bone/joint symptoms. HEMATOLOGICAL: Negative for bleeding and easy bruising. Negative for history of transfusion or thromboembolic disease ALLERGY: Negative for environmental allergies and food allergies. [facility] - History Attestation statement: The following information was validated with the patient. Source: Old Records Reviewed - Medical History Medical History: Medical History (Last Reviewed 04/01/22 @ 13:05 by Rose Ohara MD) Arm fracture, left Arthritis Carpal tunnel syndrome on right s/p suurgery Diabetes mellitus, type 2 Gout H/O pilonidal cyst Hypercholesteremia Hypertension Osteoporosis - Surgical History Surgical History: Surgical History (Last Reviewed 04/01/22 @ 13:05 by Rose Ohara MD) H/O repair of left rotator cuff History of phacoemulsification of cataract of both eyes with intraocular lens implantation History of tubal ligation - Family History Family History: Family History (Last Reviewed 04/01/22 @ 13:05 by Rose Ohara MD) Mother CVA (cerebral vascular accident) Father Leukemia - Social History Smoking Status: Never smoker Substance Use Type: None Home Medications & Allergies Allergies No Known Allergies Allergy (Verified 03/31/22 13:22) Home Medications alendronate 35 mg tablet 35 mg PO QWEEK 04/11/19 [History Confirmed 03/31/22] amlodipine 5 mg tablet 5 mg PO DAILY 04/11/19 [History Confirmed 03/31/22] carvedilol 25 mg tablet 25 mg PO BID 04/11/19 [History Confirmed 03/31/22] dulaglutide 1.5 mg/0.5 mL subcutaneous pen injector 0.75 mg SUBCUT QWEEK 04/11/19 [History Confirmed 03/31/22] hydrochlorothiazide 25 mg tablet 25 mg PO DAILY 04/11/19 [History Confirmed 03/31/22] lisinopril 40 mg tablet 40 mg PO DAILY 04/11/19 [History Confirmed 03/31/22] metformin 1,000 mg tablet 1,000 mg PO BID 04/11/19 [History Confirmed 03/31/22] potassium chloride 20 mEq tablet,extended release 20 meq PO DAILY 04/11/19 [History Confirmed 03/31/22] rosuvastatin 10 mg tablet 10 mg PO DAILY 04/11/19 [History Confirmed 03/31/22] vit C 50 mg-E 15 unit-zinc cit 4.5 mg-lutein 2.5 mg-zeaxan chew tablet (Oohly) 1 tab PO DAILY 04/11/19 [History Confirmed 03/31/22] aspirin 81 mg tablet,delayed release 81 mg PO DAILY 10/01/20 [History Confirmed 03/31/22] meloxicam 7.5 mg tablet 7.5 PO DAILY PRN 03/23/21 [History] spironolactone 25 mg tablet 25 mg PO DAILY 12/30/21 [History Confirmed 03/31/22] furosemide 40 mg tablet (Lasix) 40 mg PO DAILY 01/11/22 [History Confirmed 03/31/22] dapagliflozin 5 mg tablet (Farxiga) 5 mg PO DAILY 03/31/22 [History Confirmed 03/31/22] Objective - Height/Weight Height/Weight: Height 5 ft 2.2 in Weight 98.43 kg BSA for Today's Weight 2.06 - Vital Signs Vital Signs: 03/31/22 13:24 Temperature 97.0 F L Pulse Rate [Left Brachial] 62 Respiratory Rate 16 Blood Pressure [Left Arm] 150/74 H 02 Sat by Pulse Oximetry 96 - Pain Left Knee Pain Intensity: 5 - Distress Screening Distress Screen Results: RN Distress Screening Start: 02/23/21 11:34 Freq: Q30D Status: Active Protocol: Document 06/29/21 10:47 AL (Rec: 06/29/21 10:49 AL [id number]) Distress Screening Distress Score: 8 Emotional Concerns Worry Comments Patient is very nervous about test results. Distress Screening Total 8 Distress score of 4 or more discussed Refused with patient? Distress screening follow up: Patient very nervous about test results, intervention denied. Physical Exam Narrative: CONSTITUTIONAL: The patient is in no acute distress. HEAD / FACE: Normocephalic. EYES: Pupils are equal and reactive to light. Conjunctivae and lids are benign in appearance. Ocular movement intact. EARS: Hearing grossly intact. NOSE / MOUTH / THROAT: Nose, mouth, tongue and oropharynx are benign in appearance. No signs of inflammation. NECK / THYROID: Neck is supple. Thyroid is symmetrical, without thyromegaly, masses or palpable nodules. LYMPHATIC: No palpable cervical, supraclavicular, axillary, or inguinal adenopathy. RESPIRATORY: Normal to inspection. Lungs clear to auscultation and percussion. No wheezing, rales, rhonchi or rubs. Normal effort. CARDIOVASCULAR: Regular rate and rhythm. No murmurs, gallops, or rubs. VASCULAR: Carotid, radial, femoral and pedal pulses present bilaterally. No bruits. ABDOMEN: Bowel sounds normoactive. Soft, nontender and non-distended. No hepatosplenomegaly. No masses. GENITOURINARY: No CVA tenderness. No suprapubic fullness or tenderness. No groinadenopathy. No evidence of hernias. INTEGUMENTARY: The skin is unremarkable. No rashes. No suspicious lesions. BACK / SPINE: The back is nontender. MUSCULOSKELETAL: Normal musculature, no joint deformities or abnormalities, normal range of motion for all four extremities. The right upper arm lesion is well healed from wide local excision. Right axilla well-healed without seroma or palpable adenopathy. EXTREMITIES: No edema, cyanosis or clubbing. No Gia sign. NEUROLOGICAL: Alert and oriented. Cranial nerves intact. No gross motor or sensory deficits. PSYCHIATRIC: No anxiety or evidence of depression. - ECOG Performance Status ECOG Score: 0 Results - Labs Labs: Diagram of Most Recent CBC and CMP 03/25/22 08:57 03/25/22 08:58 Labs - Last 7 Days 03/25/22 08:58: PHA Creatinine Clear 39.92, Sodium 139, Potassium 4.7, Chloride 98, Carbon Dioxide 27.4, BUN 29 H, Creatinine 1.40 H, Est GFR ( Amer) 45,Est GFR (Non-Af Amer) 37, Glucose 201 H, Calcium 9.7, Total Bilirubin 1.2, AST 18, ALT 23, Alkaline Phosphatase 43, Total Protein 6.3, Albumin 3.8, Globulin 2.5, Albumin/Globulin Ratio 1.5 03/25/22 08:57: Lactate Dehydrogenase 111, TSH 3rd Generation 0.89 03/25/22 08:57: Corrected WBC 7.4, Uncorrected WBC Count 7.4, RBC 4.90, Hgb 14.2, Hct 43.3, MCV 88.3, MCH 29.0, MCHC 32.8, RDW 15.1, Plt Count 232, MPV 8.2,Neut % (Auto) 64.5, Lymph % (Auto) 22.3, [place] % (Auto) 9.5, Eos % (Auto) 2.6, Baso % (Auto) 1.1, Neut # (Auto) 4.8, Lymph # (Auto) 1.7, [place] # (Auto) 0.7, Eos# (Auto) 0.2, Baso # (Auto) 0.1, Nucleated RBC % (auto) 0.1 - Impressions Exam: Right axillary ultrasound. Reason for exam: Follow-up lymph node in axilla. COMPARISON: Ultrasound 09/24/2021. TECHNIQUE: Grayscale and color Doppler images of the right axilla was obtained. FINDINGS: Benign-appearing right axillary lymph nodes are noted, largest now measuring 8 mm. No solid mass or abnormal appearing lymph nodes are noted. US/US extremity nonvascular Impression: Unremarkable study. Impression dictated by: Miki Kruse Jr., D.O.03/29/2022 12:30 PM Assessment and Plan - TNM Staging Staging: Stage: pIIIC ([id number]) Melanoma 5 year survival: 69% (1) Melanoma Qualifiers: Melanoma location: upper extremity including shoulder Laterality: right Qualified Code(s): C43.61 - Malignant melanoma of right upper limb, including shoulder The patient is a 71-year-old lady who originally presented in August 2020 with ulcerated right upper arm T3 NX MX melanoma. There were tumor infiltrating lymphocytes but no evidence of lymphovascular invasion. She underwent wide local excision with negative margins that revealed at least 2.1 mm wide local excision, but was subsequently referred for right axillary sentinel lymph node biopsy on 11/28/2020 showing 1-2 nodes positive for micrometastatic involvement without extracapsular extension. Dr. Cedrick Berger at [facility] surgical oncology group ordered metastatic staging with MRI of brain which revealed borderline enlargement of pituitary but was negative for metastatic disease. PET/CT showed indeterminate uptake in the hepatic parenchyma. Subsequent liver ultrasound was negative for metastatic disease. 02/23/2021: Patient started adjuvant immunotherapy with checkpoint inhibitor nivolumab 480 mg IV every 4 weeks for 12 cycles. At follow-up 03/23/2021 she hadno immunotherapy related toxicities noted by symptoms, exam, or laboratories. 06/29/2021: No concerning symptoms for immunotherapy toxicity. We continue surveillance of right axilla with followup axillary ultrasound in 3 months--March 2021 ultrasound was reviewed with patient showing no evidence of recurrence, and6- month follow-up PET/CT and follow-up brain MRI in June 2021 reviewed--no concerning findings. --Musculoskeletal sites with SUV 2.8-4, patient reassured and we will perform one further f/u PET/CT in 6 months to determine if uptake still noted in these sites requiring biopsy. 09/30/2021: Still without immunotherapy toxicity. Right axillary ultrasound without abnormal adenopathy. Restaging CT CAP for restaging ordered for Dec 2021 followup visit. 12/30/2021: No concerning symptoms for immunotherapy toxicity. CT CAP for restaging shows no evidence of distant metastases. End of 1 year immunotherapy 01/2022. We continue surveillance of right axilla with followup axillary ultrasound in 3 months--March 2022 ultrasound ordered with f/u labs CBC, CMP, LDH,and TSH. 04/01/2022: Here for 3-month follow-up after completing 1 year of immunotherapy for stage III melanoma in January 2022. Surveillance right axillary ultrasound without evidence of recurrence. Her only change in laboratories is mild increase of creatinine to 1.4 from prior 1.1. No prior history of renal insufficiency and likely medical renal disease. She was encouraged to hydrate and follow-up with primary physician. Next follow-up with me for CT chest abdomen pelvis with surveillance labs CBC, CMP, and LDH in 3 months or sooner asneeded. Next follow-up with me in 3 months unless new issues arise. Patient is in agreement with this plan over this low complexity 15-minute visit to review symptoms, imaging noted above, and labs after completing immunotherapy. 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 She has no headaches or visual changes and we repeated her MRI of brain for surveillance at 6 months in June 2021--no interval change of prominent pituitary stalk. We may follow for symptoms only. (3) Diabetes mellitus Qualifiers: Chronic kidney disease stage: stage 2 (mild) Patient has a known history of diabetes mellitus and in 12/2020 she had diffuse uptake in liver on PET/CT. This is likely due to her hyperglycemia but we will follow closely during her immunotherapy. Followup PET/CT with no abnormal uptake in liver. All further restaging studies with CT CAP with contrast instead. Most recent creatinine has increased and should follow-up with primary care to determine if this is related to worsening diabetes control with nephropathy. (4) Encounter for antineoplastic immunotherapy She initiated nivolumab 480mg IV 02/2021 for monthly therapy to complete one year01/2022. - Chemo Plan Chemo Plan (Dose, Rate, Freq): Nivolumab 480 mg IV every 4 weeks for 12 cycles. Number of Cycles: 12 Goal of Treatment: Curative - Time with Patient Time Spent with Patient (Follow Up Visit): Less than 20 minutes Coordination of Care & Counseling Time: Greater than 50% of time spent with patient was for coordination of care (as documented) and [id number] counseling of patient and/or family. Dictated By: Rose Ohara MD DD/ 1330 Signed By: <Electronically signed by MD Rose Ohara> 04/01/22 [id number] [facility] Work Phone: [phone] Progress note Author Rose Ohara [facility] December 30, 2021 3:45pm Note Date/Time December 30, 2021 10:04am [facility] [place] [address] Hem/Onc Follow Up Note - OP Signed Patient: Tosha Mcneal MR#: [id number] : 1950 Acct:[id number] Age/Sex: 71 / F Type: REG RCR Copies to: DO Cedrick Haddad MD Richard M Wiecek, MD~ Subjective Date/Time of Service: Date of Service: 12/30/2021 Time of Service: 10:04 Chief Complaint: Patient is here today for 3 month follow up for melanoma. She has labs and CT scans HPI: 12/30/2021: 3 month followup on Nivolumab adjuvant therapy for stage III right posterior arm melanoma. Continues to have no immunotherapy related toxicities. Continues dermatology followup every [address] CAP without recurrence. One more month of adjuvant Nivolumab then f/u 3 months with CBC, CMP, LDH, and TSH with surveillance axillary US. Low complexity 15 min visit. 09/30/2021: 3 month followup on Nivolumab adjuvant therapy for stage III right posterior arm melanoma. Continues to have no immunotherapy related toxicities. Now following with dermatology at [facility] with no recurrence on skin exam. Surveillance ultrasound right axilla without recurrence. She will have routing f/u with [place] in [address] CAP and labs for surveillance on immunotherapy. 06/29/2021: 3 month followup on Nivolumab adjuvant therapy for stage III right posterior arm melanoma. She still notes no infusion reactions, rashes, diarrhea, dyspnea or immunotherapy related toxicities. Interestingly she does not have any routine follow-up with dermatology, despite her diagnosis of melanoma. She had surveillance right axillary US showing no suspicious adenopathy. She had a repeat whole body FDG PET/CT 06/17/2021, which both showedno evidence of metastatic disease. No abnormal uptake in the liver. There weremultiple sites of mild FDG uptake in musculoskeletal system (L3/4, right ankle, right wrist carpal tunnel) and subcutaneous left lower leg with no associated skin lesion or nodule. I reassured the patient this is likely due to degenerative changes and will continue to follow. 06/22/2021 MRI of brain showed a prominent pituitary stalk without mass, stable from prior imaging. I will continue monthly Nivolumab and followup in 3 months, sooner prn. We will also refer to dermatology for skin surveillance. 03/23/2021: Tosha is here for 1 month follow-up after starting adjuvant nivolumab for stage III right posterior arm melanoma. She has tolerated her initial therapy well without infusion reactions, rashes, diarrhea, dyspnea, or any other immunotherapy toxicities. Her baseline laboratories were normal and follow-up labs prior to her second dose today showed borderline elevated total bilirubin of 1.4 which will be followed. Normal thyroid testing and ACTH is pending. Of note she had her sentinel lymph node dissection in late November andwe will set up her 4-month follow-up surveillance ultrasound this month and she will be contacted with the results. Of note her MRI of brain her baseline did show borderline enlargement of the pituitary without mass and all of her pituitary labs have been unremarkable. She does not have any headaches or visual changes but was advised to watch for any of these symptoms and we would reimage her sooner. Otherwise she will be evaluated with repeat PET/CT and MRI of brain for surveillance of uptake in the liver with negative liver ultrasound in January and her borderline enlargement of the pituitary noted on baseline study. Patient expressed understanding. PREVIOUS HISTORY: This is a 71-year-old lady referred here by Dr. Hernando Mccartney. She follows with Dr. Wild Centeno. 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 There was ulceration with tumor infiltrating lymphocytes but no lymphovascular invasion. There was positive margins involved. She was referred to general surgery with Dr. Hernando Mccartney who proceeded with wide local excision 09/05/2020 at [facility]. [facility] at least 2.1 cm Breslow depth melanoma with 2 cm negative margins. She was referred to Dr. Cedrick Berger at [facility]. Right axillary sentinel lymph node biopsy performed 11/28/2020 revealed 1 of 2 lymph nodes positive for micrometastatic involvement without extracapsular extension. Greatest focus of disease was 0.01mm in dimension. The patient was scheduled for PET/CT for metastatic staging on12/26/2020: This result revealed multifocal hypermetabolic uptake of the liver concerning for metastatic disease. She was also noted to have moderate right hydronephrosis and hydroureter. She was scheduled for follow-up liver ultrasound on 01/09/2021 which was unremarkable with no visible liver lesion. Her case was presented at [facility] cutaneous tumor board on 12/15/2020rior to her metastatic staging. Discussion of referral to medical oncology fordiscussion of immunotherapy. The patient is now returning for medical oncology follow-up after review of all prior pathology and imaging. BRAF status is stillpending. She has healed well. She is a 10-year history of diabetes. She resides in [facility]. Today we reviewed immunotherapy counseling for nivolumab. Although PET/CT was indeterminate for metastatic disease to liver, negative ultrasound warrants treatment of this for curative intent. Common toxicities were reviewed to include infusion reactions, rash, fatigue, diarrhea, visual changes, abnormalities of thyroid/adrenal/pituitary function, pancreatitis, and other autoimmune toxicities. Other toxicities may include pneumonitis, neurologic, hepatic and renal toxicities. The patient signed informed consent and will follow-up as directed. - Summary of Therapies Summary of Therapies: 1. Initial wide local excision at [facility] 09/05/[address] Hernando Mccartney 2. Right sentinel lymph node biopsy 11/28/2020 at [facility] by Dr. Cedrick Berger 3. Delay of immunotherapy due to work-up of possible metastatic disease of liver on PET. Brain MRI returned with no evidence of metastatic disease to brain. Liver ultrasound showed no liver lesions. Abnormalities of FDG avidity on PET/CT are felt to be due to artifact from diabetes. --Cycle 1 day 1 02/23/2021 for adjuvant nivolumab 480 mg IV every 4 weeks for 12 cycles. Last cycle early January 2022, then surveillance. ROS Details: All systems reviewed & no additional complaints except as documented Subjective/ROS - Narrative: CONSTITUTIONAL: Negative for fatigue, negative for fever or night sweats. HEAD AND NECK: Negative for changes in hearing and vision. Negative for mouth ulcers, nasal congestion and nasal drainage. PULMONARY: Negative for chest pain, cough and dyspnea. CARDIOVASCULAR: Negative for claudication and irregular heartbeat/palpitations. GASTROINTESTINAL: Negative for abdominal pain, constipation, decreased appetite,diarrhea, nausea, and vomiting. GENITOURINARY: Negative for dysuria and hematuria. ENDOCRINE: Negative for cold intolerance and heat intolerance. CENTRAL NERVOUS SYSTEM: Negative for gait disturbance and headache. No focal motor or sensory abnormalities. PSYCHIATRIC: Negative for anxiety or depression. DERMATOLOGICAL: Negative for pruritus and rash. Negative for suspicious skin lesions. Well-healed from wide local excision right arm and right axillary sentinel lymph node biopsy with no residual seroma. No skin lesion or nodule tocorrelate to mild increased FDG uptake proximal to left ankle. MUSCULOSKELETAL: Negative for back pain and bone/joint symptoms. HEMATOLOGICAL: Negative for bleeding and easy bruising. Negative for history of transfusion or thromboembolic disease ALLERGY: Negative for environmental allergies and food allergies. PMF - History Attestation statement: The following information was validated with the patient. Source: Old Records Reviewed - Medical History Medical History: Medical History (Last Reviewed 12/30/21 @ 15:41 by Rose Ohara MD) Arm fracture, left Arthritis Carpal tunnel syndrome on right s/p suurgery Diabetes mellitus, type 2 Gout H/O pilonidal cyst Hypercholesteremia Hypertension Osteoporosis - Surgical History Surgical History: Surgical History (Last Reviewed 12/30/21 @ 15:41 by Rose Ohara MD) H/O repair of left rotator cuff History of phacoemulsification of cataract of both eyes with intraocular lens implantation History of tubal ligation - Family History Family History: Family History (Last Reviewed 12/30/21 @ 15:41 by Rose Ohara MD) Mother CVA (cerebral vascular accident) Father Leukemia - Social History Smoking Status: Never smoker Substance Use Type: None Home Medications & Allergies Allergies No Known Allergies Allergy (Verified 12/30/21 09:55) Home Medications alendronate 35 mg tablet 35 mg PO QWEEK 04/11/19 [History Confirmed 09/30/21] amlodipine 5 mg tablet 5 mg PO DAILY 04/11/19 [History Confirmed 09/30/21] carvedilol 25 mg tablet 25 mg PO BID 04/11/19 [History Confirmed 09/30/21] dulaglutide 1.5 mg/0.5 mL subcutaneous pen injector 0.75 mg SUBCUT QWEEK 04/11/19 [History Confirmed 09/30/21] hydrochlorothiazide 25 mg tablet 25 mg PO DAILY 04/11/19 [History Confirmed 09/30/21] insulin detemir U-100 100 unit/mL (3 mL) subcutaneous pen 70 units SUBCUT QHS 04/11/19 [History Confirmed 09/30/21] lisinopril 40 mg tablet 40 mg PO DAILY 04/11/19 [History Confirmed 09/30/21] metformin 1,000 mg tablet 1,000 mg PO BID 04/11/19 [History Confirmed 09/30/21] potassium chloride 20 mEq tablet,extended release 20 meq PO DAILY 04/11/19 [History Confirmed 09/30/21] rosuvastatin 10 mg tablet 10 mg PO DAILY 04/11/19 [History Confirmed 09/30/21] vit C 50 mg-E 15 unit-zinc cit 4.5 mg-lutein 2.5 mg-zeaxan chew tablet (Oohly) 1 tab PO DAILY 04/11/19 [History Confirmed 09/30/21] aspirin 81 mg tablet,delayed release 81 mg PO DAILY 10/01/20 [History Confirmed 09/30/21] empagliflozin 25 mg tablet (Jardiance) 25 mg PO DAILY 10/01/20 [History Confirmed 09/30/21] meloxicam 7.5 mg tablet 7.5 PO DAILY PRN 03/23/21 [History] furosemide 20 mg tablet (Lasix) 20 mg PO DAILY 12/30/21 [History Confirmed 12/30/21] spironolactone 25 mg tablet 25 mg PO DAILY 12/30/21 [History Confirmed 12/30/21] Objective - Height/Weight Height/Weight: Height 5 ft 2.2 in Weight 100.698 kg BSA for Today's Weight 2.06 - Vital Signs Vital Signs: 12/30/21 09:58 Temperature 98.0 F Pulse Rate [Left Brachial] 76 Respiratory Rate 20 Blood Pressure [Left Arm] 147/72 H 02 Sat by Pulse Oximetry 98 - Pain Left Knee Pain Intensity: 5 - Distress Screening Distress Screen Results: RN Distress Screening Start: 02/23/21 11:34 Freq: Q30D Status: Active Protocol: Document 06/29/21 10:47 AL (Rec: 06/29/21 10:49 AL [id number]) Distress Screening Distress Score: 8 Emotional Concerns Worry Comments Patient is very nervous about test results. Distress Screening Total 8 Distress score of 4 or more discussed Refused with patient? Distress screening follow up: Patient very nervous about test results, intervention denied. Physical Exam Narrative: CONSTITUTIONAL: The patient is in no acute distress. HEAD / FACE: Normocephalic. EYES: Pupils are equal and reactive to light. Conjunctivae and lids are benign in appearance. Ocular movement intact. EARS: Hearing grossly intact. NOSE / MOUTH / THROAT: Nose, mouth, tongue and oropharynx are benign in appearance. No signs of inflammation. NECK / THYROID: Neck is supple. Thyroid is symmetrical, without thyromegaly, masses or palpable nodules. LYMPHATIC: No palpable cervical, supraclavicular, axillary, or inguinal adenopathy. RESPIRATORY: Normal to inspection. Lungs clear to auscultation and percussion. No wheezing, rales, rhonchi or rubs. Normal effort. CARDIOVASCULAR: Regular rate and rhythm. No murmurs, gallops, or rubs. VASCULAR: Carotid, radial, femoral and pedal pulses present bilaterally. No bruits. ABDOMEN: Bowel sounds normoactive. Soft, nontender and non-distended. No hepatosplenomegaly. No masses. GENITOURINARY: No CVA tenderness. No suprapubic fullness or tenderness. No groinadenopathy. No evidence of hernias. INTEGUMENTARY: The skin is unremarkable. No rashes. No suspicious lesions. BACK / SPINE: The back is nontender. MUSCULOSKELETAL: Normal musculature, no joint deformities or abnormalities, normal range of motion for all four extremities. The right upper arm lesion is well healed from wide local excision. Right axilla well-healed without seroma or palpable adenopathy. EXTREMITIES: No edema, cyanosis or clubbing. No Gia sign. NEUROLOGICAL: Alert and oriented. Cranial nerves intact. No gross motor or sensory deficits. PSYCHIATRIC: No anxiety or evidence of depression. - ECOG Performance Status ECOG Score: 0 Results - Labs Labs: Diagram of Most Recent CBC and CMP 12/14/21 09:35 12/14/21 09:35 - Impressions CT chest w con, CT abdomen pelvis w con 12/28/2021 9:43 AM SIGN AND SYMPTOMS: History of melanoma, restaging CONTRAST: 90 mL of intravenous Isovue-300 TECHNIQUE: Multidetector CT axial slices of the chest, abdomen and pelvis were obtainedwith IV contrast. Multiplanar reformats were performed and viewed on a separate workstation and reviewed to further define anatomy and possible pathology. CT was performed with one or more of the following dose reduction techniques: Automated exposure control, adjustment of the mA and/or kV according to patient size, or use of iterative reconstruction technique. COMPARISON: PET/CT 09/26/2021. FINDINGS: Lower neck: Thyroid gland within normal limits, no supraclavicle adenopathy. Vessels: Atherosclerotic changes are noted in the thoracic aorta and origins of the great vessels. Atherosclerotic changes are noted in the coronary arteries. Mediastinum and Shirley: Within normal limits. Heart: Normal size. No pericardial effusion. Airways: Within normal limits Lungs: There is linear scarring or atelectasis in the lung bases and in the anterior aspect of the right upper lobe. Pleura: Within normal limits. Chest Wall: Within normal limits. Abdomen: Liver: The liver is mildly hypoattenuating in respect to the spleen suggesting diffuse fatty infiltration. Bile Ducts: Normal caliber. Gallbladder: No calcified gallstones. Normal caliber wall. Pancreas: within normal limits. Spleen: within normal limits. Adrenals: within normal limits. Kidneys: There is a simple cyst at the inferior pole of the right renal cortex. Pelvis: Reproductive Organs: There is a calcified fibroid in the uterine fundus. Ureters: within normal limits. Bladder: within normal limits. Bowel: There is uncomplicated colonic diverticulosis. There is no evidence of bowel obstruction. There is a normal appendix in the right lower quadrant. Mesenteric Lymph Nodes: No enlarged mesenteric lymph nodes. Peritoneum: No ascites or free air, no fluid collection. Vessels: Atherosclerotic changes noted in the abdominal aorta and its branches.. Retroperitoneum: within normal limits. Abdominal Wall: within normal limits. Bones: Degenerative changes are noted in the thoracolumbar spine, hips, and sacroiliac joints. There is 7 mm of anterolisthesis of L4 upon L5. CT/CT chest w con IMPRESSION: No evidence of recurrent or metastatic disease. No acute cardiopulmonary pathology. No acute intra-abdominal pathology. Chronic findings are noted, as above. Impression dictated by: Francesco Boggs M.D.12/28/2021 1:50 PM Assessment and Plan - TNM Staging Staging: Stage: pIIIC ([id number]) Melanoma 5 year survival: 69% (1) Melanoma Qualifiers: Melanoma location: upper extremity including shoulder Laterality: right Qualified Code(s): C43.61 - Malignant melanoma of right upper limb, including shoulder The patient is a 71-year-old lady who originally presented in August 2020 with ulcerated right upper arm T3 NX MX melanoma. There were tumor infiltrating lymphocytes but no evidence of lymphovascular invasion. She underwent wide local excision with negative margins that revealed at least 2.1 mm wide local excision, but was subsequently referred for right axillary sentinel lymph node biopsy on 11/28/2020 showing 1-2 nodes positive for micrometastatic involvement without extracapsular extension. Dr. Cedrick Berger at [facility] surgical oncology group ordered metastatic staging with MRI of brain which revealed borderline enlargement of pituitary but was negative for metastatic disease. PET/CT showed indeterminate uptake in the hepatic parenchyma. Subsequent liver ultrasound was negative for metastatic disease. 02/23/2021: Patient started adjuvant immunotherapy with checkpoint inhibitor nivolumab 480 mg IV every 4 weeks for 12 cycles. At follow-up 03/23/2021 she hadno immunotherapy related toxicities noted by symptoms, exam, or laboratories. 06/29/2021: No concerning symptoms for immunotherapy toxicity. We continue surveillance of right axilla with followup axillary ultrasound in 3 months--March 2021 ultrasound was reviewed with patient showing no evidence of recurrence, and6- month follow-up PET/CT and follow-up brain MRI in June 2021 reviewed--no concerning findings. --Musculoskeletal sites with SUV 2.8-4, patient reassured and we will perform one further f/u PET/CT in 6 months to determine if uptake still noted in these sites requiring biopsy. 09/30/2021: Still without immunotherapy toxicity. Right axillary ultrasound without abnormal adenopathy. Restaging CT CAT for restaging ordered for Dec 2021 followup visit. 12/30/2021: No concerning symptoms for immunotherapy toxicity. CT CAT for restaging shows no evidence of distant metastases. End of 1 year immunotherapy 01/2022. We continue surveillance of right axilla with followup axillary ultrasound in 3 months--March 2022 ultrasound ordered with f/u labs CBC, CMP, LDH,and TSH. Next follow-up with me in 3 months unless new issues arise. Patient is in agreement with this plan over this low complexity 15-minute visit to review symptoms, imaging noted above, and labs on immunotherapy. 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 She has no headaches or visual changes and we repeated her MRI of brain for surveillance at 6 months in June 2021--no interval change of prominent pituitary stalk. We may follow for symptoms only. (3) Diabetes mellitus Patient has a known history of diabetes mellitus and in 12/2020 she had diffuse uptake in liver on PET/CT. This is likely due to her hyperglycemia but we will follow closely during her immunotherapy. Followup PET/CT with no abnormal uptake in liver. All further restaging studies with CT CAP with contrast instead. (4) Encounter for antineoplastic immunotherapy She initiated nivolumab 480mg IV 02/2021 for monthly therapy to complete one year01/2022. - Chemo Plan Chemo Plan (Dose, Rate, Freq): Nivolumab 480 mg IV every 4 weeks for 12 cycles. Number of Cycles: 12 Goal of Treatment: Curative - Time with Patient Time Spent with Patient (Follow Up Visit): Less than 20 minutes Coordination of Care & Counseling Time: Greater than 50% of time spent with patient was for coordination of care (as documented) and [id number] counseling of patient and/or family. Dictated By: Rose Ohara MD DD/ 1004 Signed By: <Electronically signed by MD Rose Ohara> 12/30/21 [id number] [facility] Work Phone: 1([phone]) 302-258111-25-2021 Progress note Author Rose Ohara [facility] October 01, 2021 12:50pm Note Date/Time September 30, 2021 10:46am [facility] at [address] [address] Hem/Onc Follow Up Note - OP Signed with Addenda Patient: Tosha Mcneal MR#: [id number] : 1950 Acct:[id number] Age/Sex: 70 / F Type: REG RCR Copies to: DO Bj Haddad MD Richard M Wiecek, MD~ ADDENDUM1 Correction 09/30/2021: Second line should note Metal Weigher is Dr. Bj Robison in [place]--last skin exam 09/29/2021. Addendum Dictated By: MD Rose Ohara Addendum Signed By: 10/01/211249 Addendum Cosigned By: DD/ TD/TT: 10/01/21 Subjective Date/Time of Service: Date of Service: 09/30/2021 Time of Service: 10:46 Chief Complaint: Patient is here today for 3 month follow up visit for melanoma of right upper arm and to go over labs. No new concerns HPI: 09/30/2021: 3 month followup on Nivolumab adjuvant therapy for stage III right posterior arm melanoma. Continues to have no immunotherapy related toxicities. Now following with dermatology at [facility] with no recurrence on skin exam. Surveillance ultrasound right axilla without recurrence. She will have routing f/u with [place] in [address] CAP and labs for surveillance on immunotherapy. 06/29/2021: 3 month followup on Nivolumab adjuvant therapy for stage III right posterior arm melanoma. She still notes no infusion reactions, rashes, diarrhea, dyspnea or immunotherapy related toxicities. Interestingly she does not have any routine follow-up with dermatology, despite her diagnosis of melanoma. She had surveillance right axillary US showing no suspicious adenopathy. She had a repeat whole body FDG PET/CT 06/17/2021, which both showedno evidence of metastatic disease. No abnormal uptake in the liver. There weremultiple sites of mild FDG uptake in musculoskeletal system (L3/4, right ankle, right wrist carpal tunnel) and subcutaneous left lower leg with no associated skin lesion or nodule. I reassured the patient this is likely due to degenerative changes and will continue to follow. 06/22/2021 MRI of brain showeda prominent pituitary stalk without mass, stable from prior imaging. I will continue monthly Nivolumab and followup in 3 months, sooner prn. We will also refer to dermatology for skin surveillance. 03/23/2021: Tosha is here for 1 month follow-up after starting adjuvant nivolumab for stage III right posterior arm melanoma. She has tolerated her initial therapy well without infusion reactions, rashes, diarrhea, dyspnea, or any other immunotherapy toxicities. Her baseline laboratories were normal and follow-up labs prior to her second dose today showed borderline elevated total bilirubin of 1.4 which will be followed. Normal thyroid testing and ACTH is pending. Of note she had her sentinel lymph node dissection in late November andwe will set up her 4-month follow-up surveillance ultrasound this month and she will be contacted with the results. Of note her MRI of brain her baseline did show borderline enlargement of the pituitary without mass and all of her pituitary labs have been unremarkable. She does not have any headaches or visual changes but was advised to watch for any of these symptoms and we would reimage her sooner. Otherwise she will be evaluated with repeat PET/CT and MRI of brain for surveillance of uptake in the liver with negative liver ultrasound in January and her borderline enlargement of the pituitary noted on baseline study. Patient expressed understanding. PREVIOUS HISTORY: This is a 70-year-old lady referred here by Dr. Hernando Mccartney. She follows with Dr. Wild Centeno. 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 There was ulceration with tumor infiltrating lymphocytes but no lymphovascular invasion. There was positive margins involved. She was referred to general surgery with Dr. Hernando Mccartney who proceeded with wide local excision 09/05/2020 at [facility]. Outside review at [facility] showed at least 2.1 cm Breslow depth melanoma with 2 cm negative margins. She was referred to Dr. Cedrick Berger at [facility]. Right axillary sentinel lymph node biopsy performed 11/28/2020 revealed 1 of 2 lymph nodes positive for micrometastatic involvement without extracapsular extension. Greatest focus of disease was 0.01mm in dimension. The patient was scheduled for PET/CT for metastatic staging on12/26/2020: This result revealed multifocal hypermetabolic uptake of the liver concerning for metastatic disease. She was also noted to have moderate right hydronephrosis and hydroureter. She was scheduled for follow-up liver ultrasound on 01/09/2021 which was unremarkable with no visible liver lesion. Her case was presented at [facility] cutaneous tumor board on 12/15/2020rior to her metastatic staging. Discussion of referral to medical oncology fordiscussion of immunotherapy. The patient is now returning for medical oncology follow-up after review of all prior pathology and imaging. BRAF status is stillpending. She has healed well. She is a 10-year history of diabetes. She resides in [facility]. Today we reviewed immunotherapy counseling for nivolumab. Although PET/CT was indeterminate for metastatic disease to liver, negative ultrasound warrants treatment of this for curative intent. Common toxicities were reviewed to include infusion reactions, rash, fatigue, diarrhea, visual changes, abnormalities of thyroid/adrenal/pituitary function, pancreatitis, and other autoimmune toxicities. Other toxicities may include pneumonitis, neurologic, hepatic and renal toxicities. The patient signed informed consent and will follow-up as directed. - Summary of Therapies Summary of Therapies: 1. Initial wide local excision at [facility] 09/05/[address] Hernando Mccartney 2. Right sentinel lymph node biopsy 11/28/2020 at [facility] by Dr. Cedrick Berger 3. Delay of immunotherapy due to work-up of possible metastatic disease of liver on PET. Brain MRI returned with no evidence of metastatic disease to brain. Liver ultrasound showed no liver lesions. Abnormalities of FDG avidity on PET/CT are felt to be due to artifact from diabetes. --Cycle 1 day 1 02/23/2021 for adjuvant nivolumab 480 mg IV every 4 weeks for 12 cycles. ROS Details: All systems reviewed & no additional complaints except as documented Subjective/ROS - Narrative: CONSTITUTIONAL: Negative for fatigue, negative for fever or night sweats. HEAD AND NECK: Negative for changes in hearing and vision. Negative for mouth ulcers, nasal congestion and nasal drainage. PULMONARY: Negative for chest pain, cough and dyspnea. CARDIOVASCULAR: Negative for claudication and irregular heartbeat/palpitations. GASTROINTESTINAL: Negative for abdominal pain, constipation, decreased appetite,diarrhea, nausea, and vomiting. GENITOURINARY: Negative for dysuria and hematuria. ENDOCRINE: Negative for cold intolerance and heat intolerance. CENTRAL NERVOUS SYSTEM: Negative for gait disturbance and headache. No focal motor or sensory abnormalities. PSYCHIATRIC: Negative for anxiety or depression. DERMATOLOGICAL: Negative for pruritus and rash. Negative for suspicious skin lesions. Well-healed from wide local excision right arm and right axillary sentinel lymph node biopsy with no residual seroma. No skin lesion or nodule tocorrelate to mild increased FDG uptake proximal to left ankle. MUSCULOSKELETAL: Negative for back pain and bone/joint symptoms. HEMATOLOGICAL: Negative for bleeding and easy bruising. Negative for history of transfusion or thromboembolic disease ALLERGY: Negative for environmental allergies and food allergies. [facility] - History Attestation statement: The following information was validated with the patient. Source: Old Records Reviewed - Medical History Medical History: Medical History (Last Reviewed 09/30/21 @ 21:30 by Rose Ohara MD) Arm fracture, left Arthritis Carpal tunnel syndrome on right s/p suurgery Diabetes mellitus, type 2 Gout H/O pilonidal cyst Hypercholesteremia Hypertension Osteoporosis - Surgical History Surgical History: Surgical History (Last Reviewed 09/30/21 @ 21:30 by Rose Ohara MD) H/O repair of left rotator cuff History of phacoemulsification of cataract of both eyes with intraocular lens implantation History of tubal ligation - Family History Family History: Family History (Last Reviewed 09/30/21 @ 21:30 by Rose Ohara MD) Mother CVA (cerebral vascular accident) Father Leukemia - Social History Smoking Status: Never smoker Substance Use Type: None Home Medications & Allergies Allergies No Known Allergies Allergy (Verified 09/30/21 10:35) Home Medications alendronate 35 mg tablet 35 mg PO QWEEK 04/11/19 [History Confirmed 09/30/21] amlodipine 5 mg tablet 5 mg PO DAILY 04/11/19 [History Confirmed 09/30/21] carvedilol 25 mg tablet 25 mg PO BID 04/11/19 [History Confirmed 09/30/21] dulaglutide 1.5 mg/0.5 mL subcutaneous pen injector 0.75 mg SUBCUT QWEEK 04/11/19 [History Confirmed 09/30/21] hydrochlorothiazide 25 mg tablet 25 mg PO DAILY 04/11/19 [History Confirmed 09/30/21] insulin detemir U-100 100 unit/mL (3 mL) subcutaneous pen 70 units SUBCUT QHS 04/11/19 [History Confirmed 09/30/21] lisinopril 40 mg tablet 40 mg PO DAILY 04/11/19 [History Confirmed 09/30/21] metformin 1,000 mg tablet 1,000 mg PO BID 04/11/19 [History Confirmed 09/30/21] potassium chloride 20 mEq tablet,extended release 20 meq PO DAILY 04/11/19 [History Confirmed 09/30/21] rosuvastatin 10 mg tablet 10 mg PO DAILY 04/11/19 [History Confirmed 09/30/21] vit C 50 mg-E 15 unit-zinc cit 4.5 mg-lutein 2.5 mg-zeaxan chew tablet (Oohly) 1 tab PO DAILY 04/11/19 [History Confirmed 09/30/21] aspirin 81 mg tablet,delayed release 81 mg PO DAILY 10/01/20 [History Confirmed 09/30/21] empagliflozin 25 mg tablet (Jardiance) 25 mg PO DAILY 10/01/20 [History Confirmed 09/30/21] meloxicam 7.5 mg tablet 7.5 PO DAILY PRN 03/23/21 [History] Objective - Height/Weight Height/Weight: Height 5 ft 2.2 in Weight 97.522 kg BSA for Today's Weight 2.06 - Vital Signs Vital Signs: 09/30/21 10:36 Temperature 98.0 F Pulse Rate [Left Brachial] 67 Respiratory Rate 20 Blood Pressure [Left Arm] 169/74 H - Pain Left Knee Pain Intensity: 5 - Distress Screening Distress Screen Results: RN Distress Screening Start: 02/23/21 11:34 Freq: Q30D Status: Active Protocol: Document 06/29/21 10:47 AL (Rec: 06/29/21 10:49 AL [id number]) Distress Screening Distress Score: 8 Emotional Concerns Worry Comments Patient is very nervous about test results. Distress Screening Total 8 Distress score of 4 or more discussed Refused with patient? Distress screening follow up: Patient very nervous about test results, intervention denied. Physical Exam Narrative: CONSTITUTIONAL: The patient is in no acute distress. HEAD / FACE: Normocephalic. EYES: Pupils are equal and reactive to light. Conjunctivae and lids are benign in appearance. Ocular movement intact. EARS: Hearing grossly intact. NOSE / MOUTH / THROAT: Nose, mouth, tongue and oropharynx are benign in appearance. No signs of inflammation. NECK / THYROID: Neck is supple. Thyroid is symmetrical, without thyromegaly, masses or palpable nodules. LYMPHATIC: No palpable cervical, supraclavicular, axillary, or inguinal adenopathy. RESPIRATORY: Normal to inspection. Lungs clear to auscultation and percussion. No wheezing, rales, rhonchi or rubs. Normal effort. CARDIOVASCULAR: Regular rate and rhythm. No murmurs, gallops, or rubs. VASCULAR: Carotid, radial, femoral and pedal pulses present bilaterally. No bruits. ABDOMEN: Bowel sounds normoactive. Soft, nontender and non-distended. No hepatosplenomegaly. No masses. GENITOURINARY: No CVA tenderness. No suprapubic fullness or tenderness. No groinadenopathy. No evidence of hernias. INTEGUMENTARY: The skin is unremarkable. No rashes. No suspicious lesions. BACK / SPINE: The back is nontender. MUSCULOSKELETAL: Normal musculature, no joint deformities or abnormalities, normal range of motion for all four extremities. The right upper arm lesion is well healed from wide local excision. Right axilla well-healed without seroma or palpable adenopathy. EXTREMITIES: No edema, cyanosis or clubbing. No Gia sign. NEUROLOGICAL: Alert and oriented. Cranial nerves intact. No gross motor or sensory deficits. PSYCHIATRIC: No anxiety or evidence of depression. - ECOG Performance Status ECOG Score: 1 Results - Labs Labs: Diagram of Most Recent CBC and CMP 09/14/21 07:24 09/14/21 07:24 - Impressions US extremity nonvascular 09/24/2021 10:08 AM SIGNS AND SYMPTOMS: Surveilance, US right axilla, history of malignant melanoma PROTOCOL: Grayscale and color Doppler sonographic images of the right axilla were obtained COMPARISON: 03/27/2021 FINDINGS: Benign-appearing lymph nodes are redemonstrated in the axilla with the largest measuring 1.4 x 0.5 x 0.6 cm in greatest dimension. No pathologically enlarged lymph nodes are identified. No abnormal cortical thickening is noted to suggest malignancy. US/US extremity nonvascular IMPRESSION: Benign-appearing lymph nodes are noted in the right axilla without evidence of pathologically enlarged lymph nodes or abnormal cortical thickening to suggest malignancy. Impression dictated by: Francesco Boggs M.D.09/24/2021 1:03 PM Assessment and Plan - TNM Staging Staging: Stage: pIIIC ([id number]) Melanoma 5 year survival: 69% (1) Melanoma Qualifiers: Melanoma location: upper extremity including shoulder Laterality: right Qualified Code(s): C43.61 - Malignant melanoma of right upper limb, including shoulder The patient is a 70-year-old lady who originally presented in August 2020 with ulcerated right upper arm T3 NX MX melanoma. There were tumor infiltrating lymphocytes but no evidence of lymphovascular invasion. She underwent wide local excision with negative margins that revealed at least 2.1 mm wide local excision, but was subsequently referred for right axillary sentinel lymph node biopsy on 11/28/2020 showing 1-2 nodes positive for micrometastatic involvement without extracapsular extension. Dr. Cedrick Berger at [facility] surgical oncology group ordered metastatic staging with MRI of brain which revealed borderline enlargement of pituitary but was negative for metastatic disease. PET/CT showed indeterminate uptake in the hepatic parenchyma. Subsequent liver ultrasound was negative for metastatic disease. 02/23/2021: Patient started adjuvant immunotherapy with checkpoint inhibitor nivolumab 480 mg IV every 4 weeks for 12 cycles. At follow-up 03/23/2021 she hadno immunotherapy related toxicities noted by symptoms, exam, or laboratories. 06/29/2021: No concerning symptoms for immunotherapy toxicity. We continue surveillance of right axilla with followup axillary ultrasound in 3 months--March 2021 ultrasound was reviewed with patient showing no evidence of recurrence, and6- month follow-up PET/CT and follow-up brain MRI in June 2021 reviewed--no concerning findings. --Musculoskeletal sites with SUV 2.8-4, patient reassured and we will perform one further f/u PET/CT in 6 months to determine if uptake still noted in these sites requiring biopsy. 09/30/2021: Still without immunotherapy toxicity. Right axillary ultrasound without abnormal adenopathy. Restaging CT CAT for restaging ordered for Dec 2021 followup visit. Next follow-up with me in 3 months unless new issues arise. Continue laboratories as per standard immunotherapy schedule. Patient is in agreement with this plan over this moderate complexity 25-minute visit to review symptoms, imaging noted above, and labs on immunotherapy. 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 She has no headaches or visual changes and we repeated her MRI of brain for surveillance at 6 months in June 2021--no interval change of prominant pituitary stalk. We may follow for symptoms only. (3) Diabetes mellitus Patient has a known history of diabetes mellitus and in 12/2020 she had diffuse uptake in liver on PET/CT. This is likely due to her hyperglycemia but we will follow closely during her immunotherapy. Followup PET/CT with no abnormal uptake in liver. All further restaging studies with CT CAP with contrast instead. (4) Encounter for antineoplastic immunotherapy She initiated nivolumab 480mg IV 02/2021 for monthly therapy to complete one year. - Chemo Plan Chemo Plan (Dose, Rate, Freq): Nivolumab 481 mg IV every 4 weeks for 12 cycles. Number of Cycles: 12 Goal of Treatment: Curative - Time with Patient Time Spent with Patient (Follow Up Visit): 25 minutes Coordination of Care & Counseling Time: Greater than 50% of time spent with patient was for coordination of care (as documented) and [id number] counseling of patient and/or family. Dictated By: Rose Ohara MD DD/ 1046 Signed By: <Electronically signed by MD Rose Ohara> 09/30/21 [address] [facility] Work Phone: [phone]) 437-655608-23-2021 Progress note Author Rose Ohara [facility] June 29, 2021 6:03pm Note Date/Time June 29, 2021 10 :48am [facility] [place] [address] Hem/Onc Follow Up Note - OP Signed Patient: Tosha Mcneal MR#: [id number] : 1950 Acct:[id number] Age/Sex: 70 / F Type: REG RCR Copies to: DO Mohan Haddad MD~ Subjective Date/Time of Service: Date of Service: 06/29/2021 Time of Service: 10:48 Chief Complaint: Patient is here for a 3 month follow up with labs for review. No concerns voiced. HPI: 06/29/2021: 3 month followup on Nivolumab adjuvant therapy for stage III right posterior arm melanoma. She still notes no infusion reactions, rashes, diarrhea, dyspnea or immunotherapy related toxicities. Interestingly she does not have any routine follow-up with dermatology, despite her diagnosis of melanoma. She had surveillance right axillary US showing no suspicious adenopathy. She had a repeat whole body FDG PET/CT 06/17/2021, which both showedno evidence of metastatic disease. No abnormal uptake in the liver. There weremultiple sites of mild FDG uptake in musculoskeletal system (L3/4, right ankle, right wrist carpal tunnel) and subcutaneous left lower leg with no associated skin lesion or nodule. I reassured the patient this is likely due to degenerative changes and will continue to follow. 06/22/2021 MRI of brain showeda prominent pituitary stalk without mass, stable from prior imaging. I will continue monthly Nivolumab and followup in 3 months, sooner prn. We will also refer to dermatology for skin surveillance. 03/23/2021: Tosha is here for 1 month follow-up after starting adjuvant nivolumab for stage III right posterior arm melanoma. She has tolerated her initial therapy well without infusion reactions, rashes, diarrhea, dyspnea, or any other immunotherapy toxicities. Her baseline laboratories were normal and follow-up labs prior to her second dose today showed borderline elevated total bilirubin of 1.4 which will be followed. Normal thyroid testing and ACTH is pending. Of note she had her sentinel lymph node dissection in late November andwe will set up her 4-month follow-up surveillance ultrasound this month and she will be contacted with the results. Of note her MRI of brain her baseline did show borderline enlargement of the pituitary without mass and all of her pituitary labs have been unremarkable. She does not have any headaches or visual changes but was advised to watch for any of these symptoms and we would reimage her sooner. Otherwise she will be evaluated with repeat PET/CT and MRI of brain for surveillance of uptake in the liver with negative liver ultrasound in January and her borderline enlargement of the pituitary noted on baseline study. Patient expressed understanding. PREVIOUS HISTORY: This is a 70-year-old lady referred here by Dr. Hernando Mccartney. She follows with Dr. Wild Centeno. 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 There was ulceration with tumor infiltrating lymphocytes but no lymphovascular invasion. There was positive margins involved. She was referred to general surgery with Dr. Hernando Mccartney who proceeded with wide local excision 09/05/2020 at [facility]. Outside review at [facility] showed at least 2.1 cm Breslow depth melanoma with 2 cm negative margins. She was referred to Dr. Cedrick Berger at [facility]. Right axillary sentinel lymph node biopsy performed 11/28/2020 revealed 1 of 2 lymph nodes positive for micrometastatic involvement without extracapsular extension. Greatest focus of disease was 0.01mm in dimension. The patient was scheduled for PET/CT for metastatic staging on12/26/2020: This result revealed multifocal hypermetabolic uptake of the liver concerning for metastatic disease. She was also noted to have moderate right hydronephrosis and hydroureter. She was scheduled for follow-up liver ultrasound on 01/09/2021 which was unremarkable with no visible liver lesion. Her case was presented at [facility] cutaneous tumor board on 12/15/2020rior to her metastatic staging. Discussion of referral to medical oncology fordiscussion of immunotherapy. The patient is now returning for medical oncology follow-up after review of all prior pathology and imaging. BRAF status is stillpending. She has healed well. She is a 10-year history of diabetes. She resides in [facility]. Today we reviewed immunotherapy counseling for nivolumab. Although PET/CT was indeterminate for metastatic disease to liver, negative ultrasound warrants treatment of this for curative intent. Common toxicities were reviewed to include infusion reactions, rash, fatigue, diarrhea, visual changes, abnormalities of thyroid/adrenal/pituitary function, pancreatitis, and other autoimmune toxicities. Other toxicities may include pneumonitis, neurologic, hepatic and renal toxicities. The patient signed informed consent and will follow-up as directed. - Summary of Therapies Summary of Therapies: 1. Initial wide local excision at [facility] 09/05/[address] Hernando Mccartney 2. Right sentinel lymph node biopsy 11/28/2020 at [facility] by Dr. Cedrick Berger 3. Delay of immunotherapy due to work-up of possible metastatic disease of liver on PET. Brain MRI returned with no evidence of metastatic disease to brain. Liver ultrasound showed no liver lesions. Abnormalities of FDG avidity on PET/CT are felt to be due to artifact from diabetes. --Cycle 1 day 1 02/23/2021 for adjuvant nivolumab 480 mg IV every 4 weeks for 12 cycles. ROS Details: All systems reviewed & no additional complaints except as documented Subjective/ROS - Narrative: CONSTITUTIONAL: Negative for fatigue, negative for fever or night sweats. HEAD AND NECK: Negative for changes in hearing and vision. Negative for mouth ulcers, nasal congestion and nasal drainage. PULMONARY: Negative for chest pain, cough and dyspnea. CARDIOVASCULAR: Negative for claudication and irregular heartbeat/palpitations. GASTROINTESTINAL: Negative for abdominal pain, constipation, decreased appetite,diarrhea, nausea, and vomiting. GENITOURINARY: Negative for dysuria and hematuria. ENDOCRINE: Negative for cold intolerance and heat intolerance. CENTRAL NERVOUS SYSTEM: Negative for gait disturbance and headache. No focal motor or sensory abnormalities. PSYCHIATRIC: Negative for anxiety or depression. DERMATOLOGICAL: Negative for pruritus and rash. Negative for suspicious skin lesions. Well-healed from wide local excision right arm and right axillary sentinel lymph node biopsy with no residual seroma. No skin lesion or nodule tocorrelate to mild increased FDG uptake proximal to left ankle. MUSCULOSKELETAL: Negative for back pain and bone/joint symptoms. HEMATOLOGICAL: Negative for bleeding and easy bruising. Negative for history of transfusion or thromboembolic disease ALLERGY: Negative for environmental allergies and food allergies. PMF - History Attestation statement: The following information was validated with the patient. Source: Old Records Reviewed - Medical History Medical History: Medical History (Last Reviewed 06/29/21 @ 10:48 by Rose Ohara MD) Arm fracture, left Arthritis Carpal tunnel syndrome on right s/p suurgery Diabetes mellitus, type 2 Gout H/O pilonidal cyst Hypercholesteremia Hypertension Osteoporosis - Surgical History Surgical History: Surgical History (Last Reviewed 06/29/21 @ 10:48 by Rose Ohara MD) H/O repair of left rotator cuff History of phacoemulsification of cataract of both eyes with intraocular lens implantation History of tubal ligation - Family History Family History: Family History (Last Reviewed 06/29/21 @ 10:49 by Rose Ohara MD) Mother CVA (cerebral vascular accident) Father Leukemia - Social History Smoking Status: Never smoker Substance Use Type: None Home Medications & Allergies Allergies No Known Allergies Allergy (Verified 05/18/21 11:24) Home Medications alendronate 35 mg tablet 35 mg PO QWEEK 04/11/19 [History Confirmed 02/09/21] amlodipine 5 mg tablet 5 mg PO DAILY 04/11/19 [History Confirmed 02/09/21] carvedilol 25 mg tablet 25 mg PO BID 04/11/19 [History Confirmed 02/09/21] dulaglutide 1.5 mg/0.5 mL subcutaneous pen injector 0.75 mg SUBCUT QWEEK 04/11/19 [History Confirmed 02/09/21] hydrochlorothiazide 25 mg tablet 25 mg PO DAILY 04/11/19 [History Confirmed 02/09/21] insulin detemir U-100 100 unit/mL (3 mL) subcutaneous pen 70 units SUBCUT QHS 04/11/19 [History Confirmed 02/09/21] lisinopril 40 mg tablet 40 mg PO DAILY 04/11/19 [History Confirmed 02/09/21] metformin 1,000 mg tablet 1,000 mg PO BID 04/11/19 [History Confirmed 02/09/21] potassium chloride 20 mEq tablet,extended release 20 meq PO DAILY 04/11/19 [History Confirmed 02/09/21] rosuvastatin 10 mg tablet 10 mg PO DAILY 04/11/19 [History Confirmed 02/09/21] vit C 50 mg-E 15 unit-zinc cit 4.5 mg-lutein 2.5 mg-zeaxan chew tablet (Oohly) 1 tab PO DAILY 04/11/19 [History Confirmed 02/09/21] aspirin 81 mg tablet,delayed release 81 mg PO DAILY 10/01/20 [History Confirmed 02/09/21] empagliflozin 25 mg tablet (Jardiance) 25 mg PO DAILY 10/01/20 [History Confirmed 02/09/21] meloxicam 7.5 mg tablet 7.5 PO DAILY PRN 03/23/21 [History] Objective - Height/Weight Height/Weight: Height 5 ft 2.2 in Weight 95.889 kg BSA for Today's Weight 2.06 - Vital Signs Vital Signs: 06/29/21 10:44 Temperature 98 F Pulse Rate [Left Brachial] 70 Respiratory Rate 20 Blood Pressure [Left Arm] 143/65 H 02 Sat by Pulse Oximetry 93 L - Pain Left Knee Pain Intensity: 5 - Emotional Needs Assessment Emotional Needs Assessment: Emotional Needs Identified? Yes: pt very nervous about test results Distress Screening Total 8 Physical Exam Narrative: CONSTITUTIONAL: The patient is in no acute distress. HEAD / FACE: Normocephalic. EYES: Pupils are equal and reactive to light. Conjunctivae and lids are benign in appearance. Ocular movement intact. EARS: Hearing grossly intact. NOSE / MOUTH / THROAT: Nose, mouth, tongue and oropharynx are benign in appearance. No signs of inflammation. NECK / THYROID: Neck is supple. Thyroid is symmetrical, without thyromegaly, masses or palpable nodules. LYMPHATIC: No palpable cervical, supraclavicular, axillary, or inguinal adenopathy. RESPIRATORY: Normal to inspection. Lungs clear to auscultation and percussion. No wheezing, rales, rhonchi or rubs. Normal effort. CARDIOVASCULAR: Regular rate and rhythm. No murmurs, gallops, or rubs. VASCULAR: Carotid, radial, femoral and pedal pulses present bilaterally. No bruits. ABDOMEN: Bowel sounds normoactive. Soft, nontender and non-distended. No hepatosplenomegaly. No masses. GENITOURINARY: No CVA tenderness. No suprapubic fullness or tenderness. No groinadenopathy. No evidence of hernias. INTEGUMENTARY: The skin is unremarkable. No rashes. No suspicious lesions. BACK / SPINE: The back is nontender. MUSCULOSKELETAL: Normal musculature, no joint deformities or abnormalities, normal range of motion for all four extremities. The right upper arm lesion is well healed from wide local excision. Right axilla well-healed without seroma or palpable adenopathy. EXTREMITIES: No edema, cyanosis or clubbing. No Gia sign. NEUROLOGICAL: Alert and oriented. Cranial nerves intact. No gross motor or sensory deficits. PSYCHIATRIC: No anxiety or evidence of depression. - ECOG Performance Status ECOG Score: 0 Results - Labs Labs: Diagram of Most Recent CBC and CMP 06/15/21 09:19 06/15/21 09:19 - Impressions Whole body PET-CT 06/17/2021. CLINICAL DATA: Malignant melanoma. TECHNIQUE: Nondiagnostic CT of the whole body was performed for anatomic localization and attenuation correction. Positron emission tomography (PET) of the whole body was then performed 1 hour after the intravenous administration of12.9 mCi of F-18 Fluorodeoxyglucose (FDG). The CT and PET data sets were fused. The blood glucose level at the time of injection was 124 mg/dl. COMPARISON: 12/26/2020. FINDINGS: No hypermetabolic activity suspicious for malignancy is identified in the neck, chest, abdomen, or pelvis. There is focal uptake in the carpal tunnel of the right wrist (maximum SUV 3.7). There is also focal uptake in the subcutaneous tissues of the lower left leg, just above the ankle anteriorly (maximum SUV 2.8). There is focal uptake in the right ankle just posterior to the tibiotalar junction (maximum SUV 3.2). There is focal uptake between the spinous processes of the L3 and L4 vertebrae (maximum SUV 4.0). Intestinal activity is presumably physiologic. There is physiologic activity in the urinarytract. Mild atelectasis or scarring is noted in the lingula of the upper lobe ofthe left lung. PET/PET tumor subq tx strat wb IMPRESSION: 1. Uptake in the carpal tunnel of the right wrist. 2. Uptake in the subcutaneous tissues of the lower left leg anteriorly. 3. Uptake in the right ankle. 4. Uptake between the spinous processes of the L3 and L4 vertebrae. Impression dictated by: Mohan Galindo Jr., M.D.06/17/2021 2:03 PM MRI BRAIN WITHOUT AND WITH INTRAVENOUS CONTRAST CLINICAL DATA: Staging in patient with history of melanoma of the right arm. Mildly enlarged pituitary on comparison scan COMPARISON: 12/26/2020 Multiecho, multiplanar imaging of the brain was performed before and after intravenous administration of 19 mL of ProHance. The ventricles are normal in size and position. Mild increased T2 and FLAIR signal is again seen within the periventricular and subcortical white matter. This may be microvascular disease. There are no developing areas of abnormal signal intensity or enhancement within the supra or infratentorial brain. Thereis no restricted diffusion to suggest a recent ischemic event. No extra-axial collections or mass effect are seen. There is redemonstration of a convex contour to the superior margin of the pituitary. The pituitary gland measures approximately 8 mm in height. The pituitary stalk is also slightly thickened. These findings are unchanged. The imaged paranasal sinuses are clear. MR/MR head/brain wo/w con IMPRESSION: MINOR NONSPECIFIC WHITE MATTER CHANGES THAT MAY BE MICROVASCULAR DISEASE. STABLE APPEARANCE OF THE PITUITARY. NO ACUTE INTRACRANIAL FINDINGS. Impression dictated by: Jenni Sands M.D.06/19/2021 12:57 PM LIMITED RIGHT AXILLARY ULTRASOUND CLINICAL DATA: History of melanoma of the right upper extremity and sentinel node biopsy. COMPARISON: PET/CT 12/26/2019 Real-time ultrasound evaluation the right axilla was performed. No lymph nodes were identified. No cystic or solid masses are seen. US/US extremity nonvascular IMPRESSION: NO ULTRASOUND EVIDENCE OF AXILLARY ADENOPATHY. Impression dictated by: Jenni Sands M.D.03/27/2021 10:00 AM Assessment and Plan - TNM Staging Staging: Stage: pIIIC ([id number]) Melanoma 5 year survival: 69% (1) Melanoma Qualifiers: Melanoma location: upper extremity including shoulder Laterality: right Qualified Code(s): C43.61 - Malignant melanoma of right upper limb, including shoulder The patient is a 70-year-old lady who originally presented in August 2020 with ulcerated right upper arm T3 NX MX melanoma. There were tumor infiltrating lymphocytes but no evidence of lymphovascular invasion. She underwent wide local excision with negative margins that revealed at least 2.1 mm wide local excision, but was subsequently referred for right axillary sentinel lymph node biopsy on 11/28/2020 showing 1-2 nodes positive for micrometastatic involvement without extracapsular extension. Dr. Cedrick Berger at [facility] surgical oncology group ordered metastatic staging with MRI of brain which revealed borderline enlargement of pituitary but was negative for metastatic disease. PET/CT showed indeterminate uptake in the hepatic parenchyma. Subsequent liver ultrasound was negative for metastatic disease. 02/23/2021: Patient started adjuvant immunotherapy with checkpoint inhibitor nivolumab 480 mg IV every 4 weeks for 12 cycles. At follow-up 03/23/2021 she hadno immunotherapy related toxicities noted by symptoms, exam, or laboratories. 06/29/2021: No concerning symptoms for immunotherapy toxicity. We continue surveillance of right axilla with followup axillary ultrasound in 3 months--March 2021 ultrasound was reviewed with patient showing no evidence of recurrence, and6- month follow-up PET/CT and follow-up brain MRI in June 2021 reviewed--no concerning findings. --Musculoskeletal sites with SUV 2.8-4, patient reassured and we will perform one further f/u PET/CT in 6 months to determine if uptake still noted in these sites requiring biopsy. Next follow-up with me in 3 months unless new issues arise. Continue laboratories as per standard immunotherapy schedule. Patient is in agreement with this plan over this moderate complexity 35-minute visit to review symptoms, imaging noted above, and labs on immunotherapy. 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 She has no headaches or visual changes and we repeated her MRI of brain for surveillance at 6 months in June 2021--no interval change of prominant pituitary stalk. We may follow for symptoms only. (3) Diabetes mellitus Patient has a known history of diabetes mellitus and in 12/2020 she had diffuse uptake in liver on PET/CT. This is likely due to her hyperglycemia but we will follow closely during her immunotherapy. Followup PET/CT with no abnormal uptake in liver. (4) Encounter for antineoplastic immunotherapy She initiated nivolumab 480mg IV 02/2021 for monthly therapy to complete one year. - Chemo Plan Chemo Plan (Dose, Rate, Freq): Nivolumab 481 mg IV every 4 weeks for 12 cycles. Number of Cycles: 12 Goal of Treatment: Curative - Time with Patient Time Spent with Patient (Follow Up Visit): 35 minutes Coordination of Care & Counseling Time: Greater than 50% of time spent with patient was for coordination of care (as documented) and [id number] counseling of patient and/or family. Dictated By: Rose Ohara MD DD/ [id number] Signed By: <Electronically signed by MD Rose Ohara> 06/29/21 [address] [facility] Work Phone: [phone]) [phone] Progress note Author Rose Ohara [facility] March 23, 2021 9:29am Note Date/Time March 23, 2021 9:09a m [facility] [place] [address] Hem/Onc Follow Up Note - OP Signed Patient: Tosha Mcneal MR#: [id number] : 1950 Acct:[id number] Age/Sex: 70 / F Type: REG RCR Copies to: DO Cedrick Haddad MD Richard M Wiecek, MD~ Subjective Date/Time of Service: Date of Service: 03/23/2021 Time of Service: 09:08 Chief Complaint: Patient is here today for 6 week follow up visit for Melanoma. She is here to review labs and has treatment today. No new concerns HPI: 03/23/2021: Tosha is here for 1 month follow-up after starting adjuvant nivolumab for stage III right posterior arm melanoma. She has tolerated her initial therapy well without infusion reactions, rashes, diarrhea, dyspnea, or any other immunotherapy toxicities. Her baseline laboratories were normal and follow-up labs prior to her second dose today showed borderline elevated total bilirubin of 1.4 which will be followed. Normal thyroid testing and ACTH is pending. Of note she had her sentinel lymph node dissection in late November andwe will set up her 4-month follow-up surveillance ultrasound this month and she will be contacted with the results. Of note her MRI of brain her baseline did show borderline enlargement of the pituitary without mass and all of her pituitary labs have been unremarkable. She does not have any headaches or visual changes but was advised to watch for any of these symptoms and we would reimage her sooner. Otherwise she will be evaluated with repeat PET/CT and MRI of brain for surveillance of uptake in the liver with negative liver ultrasound in January and her borderline enlargement of the pituitary noted on baseline study. Patient expressed understanding. PREVIOUS HISTORY: This is a 70-year-old lady referred here by Dr. Hernando Mccartney. She follows with Dr. Wild Centeno. 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 There was ulceration with tumor infiltrating lymphocytes but no lymphovascular invasion. There was positive margins involved. She was referred to general surgery with Dr. Hernando Mccartney who proceeded with wide local excision 09/05/2020 at [facility]. Outside review at [facility] showed at least 2.1 cm Breslow depth melanoma with 2 cm negative margins. She was referred to Dr. Cedrick Berger at [facility]. Right axillary sentinel lymph node biopsy performed 11/28/2020 revealed 1 of 2 lymph nodes positive for micrometastatic involvement without extracapsular extension. Greatest focus of disease was 0.01mm in dimension. The patient was scheduled for PET/CT for metastatic staging on12/26/2020: This result revealed multifocal hypermetabolic uptake of the liver concerning for metastatic disease. She was also noted to have moderate right hydronephrosis and hydroureter. She was scheduled for follow-up liver ultrasound on 01/09/2021 which was unremarkable with no visible liver lesion. Her case was presented at [facility] cutaneous tumor board on 1prior to her metastatic staging. Discussion of referral to medical oncology fordiscussion of immunotherapy. The patient is now returning for medical oncology follow-up after review of all prior pathology and imaging. BRAF status is stillpending. She has healed well. She is a 10-year history of diabetes. She resides in [facility]. Today we reviewed immunotherapy counseling for nivolumab. Although PET/CT was indeterminate for metastatic disease to liver, negative ultrasound warrants treatment of this for curative intent. Common toxicities were reviewed to include infusion reactions, rash, fatigue, diarrhea, visual changes, abnormalities of thyroid/adrenal/pituitary function, pancreatitis, and other autoimmune toxicities. Other toxicities may include pneumonitis, neurologic, hepatic and renal toxicities. The patient signed informed consent and will follow-up as directed. - Summary of Therapies Summary of Therapies: 1. Initial wide local excision at [facility] 09/05/[address] Hernando Mccartney 2. Right sentinel lymph node biopsy 11/28/2020 at [facility] by Dr. Cedrick Berger 3. Delay of immunotherapy due to work-up of possible metastatic disease of liver on PET. Brain MRI returned with no evidence of metastatic disease to brain. Liver ultrasound showed no liver lesions. Abnormalities of FDG avidity on PET/CT are felt to be due to artifact from diabetes. --Cycle 1 day 1 02/23/2021 for adjuvant nivolumab 480 mg IV every 4 weeks for 12 cycles. ROS Details: All systems reviewed & no additional complaints except as documented Subjective/ROS - Narrative: CONSTITUTIONAL: Negative for fatigue, negative for fever or night sweats. HEAD AND NECK: Negative for changes in hearing and vision. Negative for mouth ulcers, nasal congestion and nasal drainage. PULMONARY: Negative for chest pain, cough and dyspnea. CARDIOVASCULAR: Negative for claudication and irregular heartbeat/palpitations. GASTROINTESTINAL: Negative for abdominal pain, constipation, decreased appetite,diarrhea, nausea, and vomiting. GENITOURINARY: Negative for dysuria and hematuria. ENDOCRINE: Negative for cold intolerance and heat intolerance. CENTRAL NERVOUS SYSTEM: Negative for gait disturbance and headache. No focal motor or sensory abnormalities. PSYCHIATRIC: Negative for anxiety or depression. DERMATOLOGICAL: Negative for pruritus and rash. Negative for suspicious skin lesions. Well-healed from wide local excision right arm and right axillary sentinel lymph node biopsy with no residual seroma. MUSCULOSKELETAL: Negative for back pain and bone/joint symptoms. HEMATOLOGICAL: Negative for bleeding and easy bruising. Negative for history of transfusion or thromboembolic disease ALLERGY: Negative for environmental allergies and food allergies. PMFSH - History Attestation statement: The following information was validated with the patient. Source: Old Records Reviewed - Medical History Medical History: Medical History (Last Reviewed 03/23/21 @ 09:23 by Rose Ohara MD) Arm fracture, left Arthritis Carpal tunnel syndrome on right s/p suurgery Diabetes mellitus, type 2 Gout H/O pilonidal cyst Hypercholesteremia Hypertension Osteoporosis - Surgical History Surgical History: Surgical History (Last Reviewed 03/23/21 @ 09:23 by Rose Ohara MD) H/O repair of left rotator cuff History of phacoemulsification of cataract of both eyes with intraocular lens implantation History of tubal ligation - Family History Family History: Family History (Last Reviewed 03/23/21 @ 09:23 by Rose Ohara MD) Mother CVA (cerebral vascular accident) Father Leukemia - Social History Smoking Status: Never smoker Substance Use Type: None Home Medications & Allergies Allergies No Known Allergies Allergy (Verified 02/09/21 08:02) Home Medications Ocuv[facility] 1 tab PO DAILY 04/11/19 [History Confirmed 02/09/21] alendronate 35 mg PO QWEEK 04/11/19 [History Confirmed 02/09/21] amlodipine 5 mg PO DAILY 04/11/19 [History Confirmed 02/09/21] carvedilol 25 mg PO BID 04/11/19 [History Confirmed 02/09/21] dulaglutide 0.75 mg SUBCUT QWEEK 04/11/19 [History Confirmed 02/09/21] hydrochlorothiazide 25 mg PO DAILY 04/11/19 [History Confirmed 02/09/21] insulin detemir U-100 70 units SUBCUT QHS 04/11/19 [History Confirmed 02/09/21] lisinopril 40 mg PO DAILY 04/11/19 [History Confirmed 02/09/21] metformin 1,000 mg PO BID 04/11/19 [History Confirmed 02/09/21] potassium chloride 20 meq PO DAILY 04/11/19 [History Confirmed 02/09/21] rosuvastatin 10 mg PO DAILY 04/11/19 [History Confirmed 02/09/21] aspirin 81 mg PO DAILY 10/01/20 [History Confirmed 02/09/21] empagliflozin [Jardiance] 25 mg PO DAILY 10/01/20 [History Confirmed 02/09/21] meloxicam 7.5 PO DAILY PRN 03/23/21 [History] Objective - Height/Weight Height/Weight: Height 5 ft 2.2 in Weight 96.162 kg - Vital Signs Vital Signs: 03/23/21 08:58 Temperature 98.0 F Pulse Rate [Left Brachial] 77 Respiratory Rate 20 Blood Pressure [Left Arm] 148/73 H 02 Sat by Pulse Oximetry 92 L - Pain Left Knee Pain Intensity: 5 - Emotional Needs Assessment Emotional Needs Assessment: Emotional Needs Identified? No Physical Exam Narrative: CONSTITUTIONAL: The patient is in no acute distress. HEAD / FACE: Normocephalic. EYES: Pupils are equal and reactive to light. Conjunctivae and lids are benign in appearance. Ocular movement intact. EARS: Hearing grossly intact. NOSE / MOUTH / THROAT: Nose, mouth, tongue and oropharynx are benign in appearance. No signs of inflammation. NECK / THYROID: Neck is supple. Thyroid is symmetrical, without thyromegaly, masses or palpable nodules. LYMPHATIC: No palpable cervical, supraclavicular, axillary, or inguinal adenopathy. RESPIRATORY: Normal to inspection. Lungs clear to auscultation and percussion. No wheezing, rales, rhonchi or rubs. Normal effort. CARDIOVASCULAR: Regular rate and rhythm. No murmurs, gallops, or rubs. VASCULAR: Carotid, radial, femoral and pedal pulses present bilaterally. No bruits. ABDOMEN: Bowel sounds normoactive. Soft, nontender and non-distended. No hepatosplenomegaly. No masses. GENITOURINARY: No CVA tenderness. No suprapubic fullness or tenderness. No groinadenopathy. No evidence of hernias. INTEGUMENTARY: The skin is unremarkable. No rashes. No suspicious lesions BACK / SPINE: The back is nontender. MUSCULOSKELETAL: Normal musculature, no joint deformities or abnormalities, normal range of motion for all four extremities. The right upper arm lesion is well healed from wide local excision. Right axilla well-healed without seroma or palpable adenopathy. EXTREMITIES: No edema, cyanosis or clubbing. No Gia sign. NEUROLOGICAL: Alert and oriented. Cranial nerves intact. No gross motor or sensory deficits. PSYCHIATRIC: No anxiety or evidence of depression. Results - Labs Labs: Diagram of Most Recent CBC and CMP 03/23/21 08:01 03/23/21 08:01 Labs - Last 7 Days 03/23/21 08:01: PHA Creatinine Clear 66.45, Sodium 139, Potassium 3.5, Chloride 101, Carbon Dioxide 24.3, BUN 17, Creatinine 0.84, Est GFR ( Amer) > 60, Est GFR (Non-Af Amer) > 60, Glucose 205 H, Calcium 8.9, Total Bilirubin 1.4 H, AST 18, ALT 16, Alkaline Phosphatase 48, Lactate Dehydrogenase 133, Total Protein 6.5, Albumin 3.7, Globulin 2.8, Albumin/Globulin Ratio 1.3, Free T4 0.87, TSH 3rd Generation 1.33 03/23/21 08:01: Corrected WBC 7.3, Uncorrected WBC Count 7.3, RBC 4.73, Hgb 13.7, Hct 41.9, MCV 88.6, MCH 28.9, MCHC 32.7, RDW 15.7 H, Plt Count 222, MPV 7.7, Neut % (Auto) 69.8, Lymph % (Auto) 16.9, [place] % (Auto) 9.7, Eos % (Auto) 2.4, Baso % (Auto) 1.2, Neut # (Auto) 5.1, Lymph # (Auto) 1.2, [place] # (Auto) 0.7, Eos # (Auto) 0.2, Baso # (Auto) 0.1, Nucleated RBC % (auto) 0.0 - Impressions No new imaging for review currently. I am ordering surveillance right axillary ultrasound and will contact results. In June 2021 she will have 6-month surveillance PET/CT and MRI brain and I will see her following both of these studies. Assessment and Plan - TNM Staging Staging: Stage: pIIIC ([id number]) Melanoma 5 year survival: 69% (1) Melanoma Qualifiers: Melanoma location: upper extremity including shoulder Laterality: right Qualified Code(s): C43.61 - Malignant melanoma of right upper limb, including shoulder The patient is a 70-year-old lady who originally presented in August 2020 with ulcerated right upper arm T3 NX MX melanoma. There were tumor infiltrating lymphocytes but no evidence of lymphovascular invasion. She underwent wide local excision with negative margins that revealed at least 2.1 mm wide local excision, but was subsequently referred for right axillary sentinel lymph node biopsy on 11/28/2020 showing 1-2 nodes positive for micrometastatic involvement without extracapsular extension. Dr. Cedrick Berger at [facility] surgical oncology group ordered metastatic staging with MRI of brain which revealed borderline enlargement of pituitary but was negative for metastatic disease. PET/CT showed indeterminate uptake in the hepatic parenchyma. Subsequent liver ultrasound was negative for metastaticdisease. 02/23/2021: Patient started adjuvant immunotherapy with checkpoint inhibitor nivolumab 480 mg IV every 4 weeks for 12 cycles. At follow-up today (03/23/2021)she has no immunotherapy related toxicities noted by symptoms, exam, or laboratories. We will continue surveillance of right axilla with ultrasound every 4 months (neck study ordered today) and 6-month follow-up PET/CT and follow-up brain MRI in June 2021, sooner if new concerning findings. Next follow-up with me in 3 months unless new issues arise. Continue laboratories as per standard immunotherapy schedule. Patient is in agreement with this plan over this moderate complexity 30 -minute visit to review symptoms and labs on immunotherapy. 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 She has no headaches or visual changes and we will repeat her MRI of brain for surveillance at 6 months in June 2021. (3) Diabetes mellitus Patient has a known history of diabetes mellitus and had diffuse uptake on PET/CT. This is likely due to her hyperglycemia but we will follow closely during her immunotherapy. (4) Encounter for antineoplastic immunotherapy Informed consent reviewed for nivolumab as noted above. - Chemo Plan Number of Cycles: 12 Goal of Treatment: Curative - Time with Patient Time Spent with Patient (Follow Up Visit): 35 minutes Coordination of Care & Counseling Time: Greater than 50% of time spent with patient was for coordination of care (as documented) and [id number] counseling of patient and/or family. Dictated By: Rose Ohara MD DD/ Signed By: <Electronically signed by MD Rose Ohara> 03/23/21 0929 [facility] Work Phone: [phone] Progress note Author Rose Ohara [facility] February 09, 2021 1:28pm Note Date/Time February 09, 2021 8:07 am [facility] at [place] [id number] Hem/Onc Follow Up Note - OP Signed Patient: ColleenTosha Talavera MR#: [id number] : 1950 Acct:[id number] Age/Sex: 70 / F Type: REG RCR Copies to: DO Cedrick Haddad MD Richard M Wiecek, MD~ Subjective Date/Time of Service: Date of Service: 02/09/2021 Time of Service: 08:07 Chief Complaint: Patient is here today for 5 month follow up visit for melanoma.She is here to review testing done of a liver us, Pet scan adn mri of the brain.No new concerns HPI: This is a 69-year-old lady referred here by Dr. Hernando Mccartney. She follows with Dr. Wild Centeno. 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 There was ulceration with tumor infiltrating lymphocytes but no lymphovascular invasion. There was positive margins involved. She was referred to general surgery with Dr. Hernando Mccartney who proceeded with wide local excision 09/05/2020 at [facility]. Outside review at [facility] showed at least 2.1 cm Breslow depth melanoma with 2 cm negative margins. She was referred to Dr. Cedrick Berger at [facility]. Right axillary sentinel lymph node biopsy performed 11/28/2020 revealed 1 of 2 lymph nodes positive for micrometastatic involvement without extracapsular extension. Greatest focus of disease was 0.01mm in dimension. The patient was scheduled for PET/CT for metastatic staging on12/26/2020: This result revealed multifocal hypermetabolic uptake of the liver concerning for metastatic disease. She was also noted to have moderate right hydronephrosis and hydroureter. She was scheduled for follow-up liver ultrasound on 01/09/2021 which was unremarkable with no visible liver lesion. Her case was presented at [facility] cutaneous tumor board on 1prior to her metastatic staging. Discussion of referral to medical oncology fordiscussion of immunotherapy. The patient is now returning for medical oncology follow-up after review of all prior pathology and imaging. BRAF status is stillpending. She has healed well. She is a 10-year history of diabetes. She resides in [facility]. Today we reviewed immunotherapy counseling for nivolumab. Although PET/CT was indeterminate for metastatic disease to liver, negative ultrasound warrants treatment of this for curative intent. Common toxicities were reviewed to include infusion reactions, rash, fatigue, diarrhea, visual changes, abnormalities of thyroid/adrenal/pituitary function, pancreatitis, and other autoimmune toxicities. Other toxicities may include pneumonitis, neurologic, hepatic and renal toxicities. The patient signed informed consent and will follow-up as directed. - Summary of Therapies Summary of Therapies: 1. Initial wide local excision at [facility] 09/05/[address] Hernando Mccartney 2. Right sentinel lymph node biopsy 11/28/2020 at [facility] by Dr. Cedrick Berger 3. Delay of immunotherapy due to work-up of possible metastatic disease of liver on PET. Brain MRI returned with no evidence of metastatic disease to brain. Liver ultrasound showed no liver lesions. Abnormalities of FDG avidity on PET/CT are felt to be due to artifact from diabetes. Patient was counseled 02/09/2021 for adjuvant nivolumab 480 mg IV every 4 weeks for 12 cycles. ROS Details: All systems reviewed & no additional complaints except as documented Subjective/ROS - Narrative: CONSTITUTIONAL: Negative for fatigue, negative for fever or night sweats. HEAD AND NECK: Negative for changes in hearing and vision. Negative for mouth ulcers, nasal congestion and nasal drainage. PULMONARY: Negative for chest pain, cough and dyspnea. CARDIOVASCULAR: Negative for claudication and irregular heartbeat/palpitations. GASTROINTESTINAL: Negative for abdominal pain, constipation, decreased appetite,diarrhea and vomiting. GENITOURINARY: Negative for dysuria and hematuria. ENDOCRINE: Negative for cold intolerance and heat intolerance. CENTRAL NERVOUS SYSTEM: Negative for gait disturbance and headache. No focal motor or sensory abnormalities. PSYCHIATRIC: Negative for anxiety or depression. DERMATOLOGICAL: Negative for pruritus and rash. Negative for suspicious skin lesions. Well-healed from wide local excision right arm and right axillary sentinel lymph node biopsy with no residual seroma. MUSCULOSKELETAL: Negative for back pain and bone/joint symptoms. HEMATOLOGICAL: Negative for bleeding and easy bruising. Negative for history of transfusion or thromboembolic disease ALLERGY: Negative for environmental allergies and food allergies. PMFSH - History Attestation statement: The following information was validated with the patient. Source: Old Records Reviewed - Medical History Medical History: Medical History (Last Reviewed 02/09/21 @ 13:20 by Rose Ohara MD) Arm fracture, left Arthritis Carpal tunnel syndrome on right s/p suurgery Diabetes mellitus, type 2 Gout H/O pilonidal cyst Hypercholesteremia Hypertension Osteoporosis - Surgical History Surgical History: Surgical History (Last Reviewed 02/09/21 @ 13:20 by Rose Ohara MD) H/O repair of left rotator cuff History of phacoemulsification of cataract of both eyes with intraocular lens implantation History of tubal ligation - Family History Family History: Family History (Last Reviewed 02/09/21 @ 13:20 by Rose Ohara MD) Mother CVA (cerebral vascular accident) Father Leukemia - Social History Smoking Status: Never smoker Substance Use Type: None Home Medications & Allergies Allergies No Known Allergies Allergy (Verified 02/09/21 08:02) Home Medications Ocuvite Eye Health 1 tab PO DAILY 04/11/19 [History Confirmed 02/09/21] alendronate 35 mg PO QWEEK 04/11/19 [History Confirmed 02/09/21] amlodipine 5 mg PO DAILY 04/11/19 [History Confirmed 02/09/21] carvedilol 25 mg PO BID 04/11/19 [History Confirmed 02/09/21] dulaglutide 0.75 mg SUBCUT QWEEK 04/11/19 [History Confirmed 02/09/21] hydrochlorothiazide 25 mg PO DAILY 04/11/19 [History Confirmed 02/09/21] insulin detemir U-100 70 units SUBCUT QHS 04/11/19 [History Confirmed 02/09/21] lisinopril 40 mg PO DAILY 04/11/19 [History Confirmed 02/09/21] metformin 1,000 mg PO BID 04/11/19 [History Confirmed 02/09/21] potassium chloride 20 meq PO DAILY 04/11/19 [History Confirmed 02/09/21] rosuvastatin 10 mg PO DAILY 04/11/19 [History Confirmed 02/09/21] aspirin 81 mg PO DAILY 10/01/20 [History Confirmed 02/09/21] empagliflozin [Jardiance] 25 mg PO DAILY 10/01/20 [History Confirmed 02/09/21] Objective - Height/Weight Height/Weight: Height 5 ft 2.2 in Weight 96.162 kg - Vital Signs Vital Signs: 02/09/21 08:03 Temperature 97.7 F Pulse Rate [Left Brachial] 71 Respiratory Rate 20 Blood Pressure [Left Arm] 150/62 H 02 Sat by Pulse Oximetry 93 L - Emotional Needs Assessment Emotional Needs Assessment: Emotional Needs Identified? No Physical Exam Narrative: CONSTITUTIONAL: The patient is in no acute distress. HEAD / FACE: Normocephalic. EYES: Pupils are equal and reactive to light. Conjunctivae and lids are benign in appearance. Ocular movement intact. EARS: Hearing grossly intact. NOSE / MOUTH / THROAT: Nose, mouth, tongue and oropharynx are benign in appearance. No signs of inflammation. NECK / THYROID: Neck is supple. Thyroid is symmetrical, without thyromegaly, masses or palpable nodules. LYMPHATIC: No palpable cervical, supraclavicular, axillary, or inguinal adenopathy. RESPIRATORY: Normal to inspection. Lungs clear to auscultation and percussion. No wheezing, rales, rhonchi or rubs. Normal effort. CARDIOVASCULAR: Regular rate and rhythm. No murmurs, gallops, or rubs. VASCULAR: Carotid, radial, femoral and pedal pulses present bilaterally. No bruits. ABDOMEN: Bowel sounds normoactive. Soft, nontender and non-distended. No hepatosplenomegaly. No masses. GENITOURINARY: No CVA tenderness. No suprapubic fullness or tenderness. No groinadenopathy. No evidence of hernias. INTEGUMENTARY: The skin is unremarkable. No rashes. No suspicious lesions BACK / SPINE: The back is nontender. MUSCULOSKELETAL: Normal musculature, no joint deformities or abnormalities, normal range of motion for all four extremities. The right upper arm lesion is well healed from wide local excision. Right axilla well-healed without seroma or palpable adenopathy. EXTREMITIES: No edema, cyanosis or clubbing. No Gia sign. NEUROLOGICAL: Alert and oriented. Cranial nerves intact. No gross motor or sensory deficits. PSYCHIATRIC: No anxiety or evidence of depression. - ECOG Performance Status ECOG Score: 1 Results - Labs Labs: No recent labs for review. - Impressions PET/CT FUSION IMAGING CLINICAL INFORMATION: Melanoma. COMPARISON : None TECHNIQUE: Noncontrasted CT scan from the base of the skull to the upper thigh followed by PET imaging. Multiplanar PET/CT fusion images. The blood sugar is 155mg/dL. The F-18 FDG amount is .7mCi. FINDINGS: No mass or adenopathy in the neck identified. No bony lesion seen in the neck. No abnormal neck hypermetabolic uptake identified. No lung mass or nodule identified. No pleural effusion is seen. No abnormal lung hypermetabolic uptake identified Few nonenlarged mediastinal lymph nodes identified. No hilar lesion is seen. No abnormal chest wall hypermetabolic uptake identified. Numerous hypermetabolic foci seen throughout the liver. There is concern for metastatic disease. RIGHT hydronephrosis and hydroureter identified. Normal physiologic uptake of the bowel noted. No abnormal hypermetabolic uptake seen. No abdominal mass or adenopathy identified. No soft tissue wall mass or fluid collection identified. There is hypermetabolism in the parasymphyseal region bilaterally greater on the RIGHT. This may be inflammatory. No abnormal hypermetabolic bone lesion seen. No abnormal hypermetabolic soft tissue uptake seen. IMPRESSION: Multifocal hypermetabolic uptake of the liver concerning for metastatic disease.Moderate RIGHT hydronephrosis and hydroureter. Impression dictated by: Omid Echevarria M.D.12/26/2020 11:20 AM Right upper quadrant abdominal ultrasound 01/09/2021. CLINICAL DATA: Malignant melanoma. TECHNIQUE: Duplex sonographic evaluation of the right upper quadrant of the abdomen was performed. FINDINGS: The liver demonstrates normal size and normal uniform echogenicity. Nofocal hepatic lesion is identified. Color Doppler and spectral waveform analysisreveal hepatopetal flow in the main portal vein. No sludge or calculus is seen in the gallbladder. No abnormal thickening of the gallbladder wall or pericholecystic fluid is noted. A sonographic Henley's sign was not observed. The common bile duct is not dilated. The pancreas appears unremarkable as visualized but is partially obscured by overlying bowel gas. There is no right hydronephrosis. US/US liver IMPRESSION: 1. Unremarkable right upper quadrant abdominal ultrasound. 2. No visible liver lesion. Impression dictated by: Mohan Galindo Jr., M.D.01/09/2021 11:23 AM --- MRI head 12/26/2020. CLINICAL DATA: Malignant melanoma. TECHNIQUE: MRI of the head was performed without and with intravenous contrast. COMPARISON: None. FINDINGS: Some images are degraded by patient motion. There is mild parenchymal volume loss. There are also mild nonspecific cerebral white matter changes most consistent with chronic microvascular ischemic disease. There is no restricted diffusion to indicate acute ischemia or infarction. The pituitary gland measures9 mm in height and demonstrates a convex superior margin. Aside from this finding, no intracranial mass or mass effect is identified. No abnormal contrastenhancement is seen. No abnormal extra-axial fluid collection is visualized. There is a small mucous retention cyst in the right maxillary sinus. The remaining paranasal sinuses and the mastoids appear unremarkable. MR/MR head/brain wo/w con IMPRESSION: 1. Mild parenchymal volume loss and chronic microvascular ischemic changes. 2. Mildly enlarged pituitary gland. 3. No evidence of intracranial metastatic disease. Impression dictated by: Mohan Galindo Jr., M.D.12/26/2020 1:58 PM Assessment and Plan - TNM Staging Staging: Stage: pIIIC ([id number]) Melanoma 5 year survival: 69% (1) Melanoma Qualifiers: Melanoma location: upper extremity including shoulder Laterality: right Qualified Code(s): C43.61 - Malignant melanoma of right upper limb, including shoulder The patient is a 70-year-old lady who originally presented in August 2020 with ulcerated right upper arm T3 NX MX melanoma. There were tumor infiltrating lymphocytes but no evidence of lymphovascular invasion. She underwent wide local excision with negative margins that revealed at least 2.1 mm wide local excision, but was subsequently referred for right axillary sentinel lymph node biopsy on 11/28/2020 showing 1-2 nodes positive for micrometastatic involvement without extracapsular extension. Dr. Cedrick Berger at [facility] surgical oncology group ordered metastatic staging with MRI of brain which was negative but PET/CT showed some indeterminate uptake in the hepatic parenchyma. Subsequent liver ultrasound wasnegative for metastatic disease. Today we counseled the patient regarding immunotherapy with checkpoint inhibitor nivolumab 480 mg IV every 4 weeks for 12cycles. We will continue surveillance of right axilla with ultrasound every 4 months and 6-month follow- up PET/CT, sooner if new concerning findings. Patientsigned informed consent for immunotherapy and we will commence therapy within the next week. I will see her for follow-up for toxicity visit at her second nivolumab dose. Patient is in agreement with this plan over this high complexity 45-minute visit to review metastatic imaging and consent for immunotherapy. (2) Diabetes mellitus Patient has a known history of diabetes mellitus and had diffuse uptake on PET/CT. This is likely due to her hyperglycemia but we will follow closely during her immunotherapy. (3) Encounter for antineoplastic immunotherapy Informed consent reviewed for nivolumab as noted above. - Chemo Plan Chemo Plan (Dose, Rate, Freq): Nivolumab 481 mg IV every 4 weeks for 12 cycles. Number of Cycles: 12 Goal of Treatment: Curative - Time with Patient Time Spent with Patient (Follow Up Visit): 45 minutes or more Coordination of Care & Counseling Time: Greater than 50% of time spent with patient was for coordination of care (as documented) and [id number] counseling of patient and/or family. Dictated By: Rose Ohara MD DD/ [id number] Signed By: <Electronically signed by MD Rose Ohara> 02/09/21 1328 [facility] Work Phone: [phone] Consult note Author Bang Nunez [facility] October 01, 2020 11:21am Note Date/Time October 01, 2020 11:10am [facility] [place] [address] Hem/Onc Consult Note - OP Signed Patient: Tosha Mcneal MR#: [id number] : 1950 Acct:[id number] Age/Sex: 69 / F Type: REG RCR Copies to: DO Mohan Haddad MD~ HPI Date/Time of Service: Date of Service: 10/01/2020 Time of Service: 11:08 Referring Provider/PCP: Referring Provider: Mohan Mccartney MD PCP: Wild Centeno DO - History of Present Illness Reason for Consultation: Melanoma Chief Complaint: New patient appt melanoma right arm HPI: This is a 69-year-old lady referred here by Dr. Hernando Mccartney. She follows with Dr. Wild Centeno. She presented with a melanoma and was taken to excision finding a 1.7 mm Jagdish's level 4 melanoma. There was ulceration with tumor infiltrating lymphocytes but no lymphovascular invasion. There was positive margins involved. She was referred to general surgery with Dr. Hernando Mccartney who proceeded with wide excision with the finding of a residual 1.7 mm melanoma, T3 NX MX. She has healed well. She is a 10-year history of diabetes. She resides in [facility]. [facility] - Medical History Medical History: Medical History (Last Reviewed 10/01/20 @ 10:35 by Carissa Marti RN) Arm fracture, left Arthritis Carpal tunnel syndrome on right s/p suurgery Diabetes mellitus, type 2 Gout H/O pilonidal cyst Hypercholesteremia Hypertension Osteoporosis - Surgical History Surgical History: Surgical History (Last Reviewed 10/01/20 @ 10:35 by Carissa Marti RN) H/O repair of left rotator cuff History of phacoemulsification of cataract of both eyes with intraocular lens implantation History of tubal ligation - Family History Family History: Family History (Last Reviewed 10/01/20 @ 10:35 by Carissa Marti RN) Mother CVA (cerebral vascular accident) Father Leukemia - Social History Smoking Status: Never smoker Substance Use Type: None Home Medications & Allergies Allergies No Known Allergies Allergy (Verified 04/11/19 08:05) Home Medications Ocuvite Eye Health 1 tab PO DAILY 04/11/19 [History Confirmed 09/30/20] alendronate 35 mg PO QWEEK 04/11/19 [History Confirmed 09/30/20] amlodipine 5 mg PO DAILY 04/11/19 [History Confirmed 09/30/20] carvedilol 25 mg PO BID 04/11/19 [History Confirmed 09/30/20] dulaglutide 0.75 mg SUBCUT QWEEK 04/11/19 [History Confirmed 09/30/20] hydrochlorothiazide 25 mg PO DAILY 04/11/19 [History Confirmed 09/30/20] insulin detemir U-100 70 units SUBCUT QHS 04/11/19 [History Confirmed 09/30/20] lisinopril 40 mg PO DAILY 04/11/19 [History Confirmed 09/30/20] metformin 1,000 mg PO BID 04/11/19 [History Confirmed 09/30/20] potassium chloride 20 meq PO DAILY 04/11/19 [History Confirmed 09/30/20] rosuvastatin 10 mg PO DAILY 04/11/19 [History Confirmed 09/30/20] aspirin 81 mg PO DAILY 10/01/20 [History Confirmed 10/01/20] empagliflozin [Jardiance] 25 mg PO DAILY 10/01/20 [History Confirmed 10/01/20] Objective - Height/Weight Height/Weight: Height 5 ft 2.2 in Weight 95.4 kg - Vital Signs Vital Signs: 10/01/20 10:39 Temperature 98.1 F Pulse Rate [Left Brachial] 71 Respiratory Rate 20 Blood Pressure [Left Arm] 151/69 H 02 Sat by Pulse Oximetry 95 - Emotional Needs Assessment Emotional Needs Assessment: Emotional Needs Identified? Yes Distress Screening Total 5 Ineffective Coping Comment new diagnosis no intervention Physical Exam Narrative: The right upper arm lesion is healing very well. There is an incision site thathas healed and is negative on examination. Examination of the right axilla-I donot appreciate any obvious lymphadenopathy. The exam is generally negative. The remainder of the physical exam is negative and noncontributory Assessment and Plan (1) Melanoma The patient is a 69-year-old lady presenting with T3 NX melanoma. There was ulceration present on the original biopsy. There were tumor infiltrating lymphocytes but no evidence of lymphovascular invasion. We talked about surgical management of melanoma. She is 69 years old with a 10-year history of diabetes mellitus. Although I think the risk of lymph node metastasis is probably low in this situation, I still would recommend surgical oncology's recommendation with regard to sentinel lymph node biopsy and dissection given the possibility of metastatic disease. The patient does not appear to be obviously very happy to hear this but I do think it is standard to at least havea discussion with regard to this. If the lesion were much thinner, given her age and history of diabetes I may not press it so hard but in her situation I dobelieve there may be a role for sentinel node biopsy and dissection. I will refer her to Dr. Cedrick Berger at [facility] surgical oncology group for his opinion. I will see her back at a later date. - Time with Patient Coordination of Care & Counseling Time: Greater than 50% of time spent with patient was for coordination of care (as documented) and [id number] counseling of patient and/or family. Dictated By: Bang Nunez MD DD/ [id number] Signed By: <Electronically signed by MD Bang Nunez> 10/01/20 112[address] [facility] Work Phone: Evaluation note* Diagnosis Onset Date Resolution Status Diabetes mellitus chronic Encounter for antineoplastic immunotherapy chronic Enlarged pituitary gland chr onic Melanoma chronic [facility] Work Phone: Evaluation note* Diagnosis Onset Date Resolution Status Enlarged pituitary gland acu te Diabetes mellitus chronic Encounter for antineoplastic immunotherapy chronic Melanoma chronic [facility] Work Phone: Evaluation note* Diagnosis Onset Date Resolution Status Enlarged pituitary gland acu te Diabetes mellitus chronic Encounter for antineoplastic immunotherapy chronic Melanoma chronic Enlarged pituitary gland acu te Malignant melanoma of right upper limb, including shoulder acute Diabetes mellitus chronic [facility] Work Phone: Evaluation note* Diagnosis Aftercare following left knee joint replacement surgery- Primary Acute pain of left knee Stiffness of left knee Primary osteoarthritis of left knee [facility] Diagnosis Aftercare following left knee joint replacement surgery- Primary Acute pain of left knee Stiffness of left knee Primary osteoarthritis of left knee [facility] Diagnosis Aftercare following left knee joint replacement surgery- Primary Acute pain of left knee Stiffness of left knee Primary osteoarthritis of left knee documented in this encounter [facility] HealthcareInstructionsNot on filedocumented in this encounterProMedica Health SystemInstructionsNot on filedocumented in this encounterProMedica Health SystemProgress note Author Rose Ohara [facility] July 01, 2022 8:35pm Note Date/Time July 01, 2022 10 :39am [facility] [place] [address] Hem/Onc Follow Up Note - OP Signed Patient: Tosha Mcneal MR#: [id number] : 1950 Acct:[id number] Age/Sex: 71 / F Type: REG RCR Copies to: DO Mohan Haddad MD~ Subjective Date/Time of Service: Date of Service: 07/01/2022 Time of Service: 10:38 Chief Complaint: Patient is here today for 3 month follow up for melanoma of right arm and go over labs HPI: 07/01/2022: 3 month followup after completing adjuvant nivolumab for stage III right posterior arm melanoma 5 months ago. Unremarkable skin exam on dermatology followup. No adenopathy, followup CT Chest/Abdomen/Pelvis shows no distant metastasis. Next f/u with ultrasound right axilla in 3 months with labs. Low complexity 20 minute visit to review imaging. Low complexity 20 minute followup visit. 03/31/2022: Here for follow-up after last dose of nivolumab adjuvant therapy for stage III right posterior arm melanoma given 01/24/2022. No immunotherapy related toxicities. Recently saw dermatology with no evidence of recurrence. We reviewed her right axillary ultrasound that showed no adenopathy. She will be due for bidirectional imaging with CT chest abdomen pelvis in 3 months and surveillance exam at that time. Low complexity 15-minute visit. 12/30/2021: 3 month followup on Nivolumab adjuvant therapy for stage III right posterior arm melanoma. Continues to have no immunotherapy related toxicities. Continues dermatology followup every [address] CAP without recurrence. One more month of adjuvant Nivolumab then f/u 3 months with CBC, CMP, LDH, and TSH with surveillance axillary US. Low complexity 15 min visit. 09/30/2021: 3 month followup on Nivolumab adjuvant therapy for stage III right posterior arm melanoma. Continues to have no immunotherapy related toxicities. Now following with dermatology at [facility] with no recurrence on skin exam. Surveillance ultrasound right axilla without recurrence. She will have routing f/u with [place] in [address] CAP and labs for surveillance on immunotherapy. 06/29/2021: 3 month followup on Nivolumab adjuvant therapy for stage III right posterior arm melanoma. She still notes no infusion reactions, rashes, diarrhea, dyspnea or immunotherapy related toxicities. Interestingly she does not have any routine follow-up with dermatology, despite her diagnosis of melanoma. She had surveillance right axillary US showing no suspicious adenopathy. She had a repeat whole body FDG PET/CT 06/17/2021, which both showedno evidence of metastatic disease. No abnormal uptake in the liver. There weremultiple sites of mild FDG uptake in musculoskeletal system (L3/4, right ankle, right wrist carpal tunnel) and subcutaneous left lower leg with no associated skin lesion or nodule. I reassured the patient this is likely due to degenerative changes and will continue to follow. 06/22/2021 MRI of brain showeda prominent pituitary stalk without mass, stable from prior imaging. I will continue monthly Nivolumab and followup in 3 months, sooner prn. We will also refer to dermatology for skin surveillance. 03/23/2021: Tosha is here for 1 month follow-up after starting adjuvant nivolumab for stage III right posterior arm melanoma. She has tolerated her initial therapy well without infusion reactions, rashes, diarrhea, dyspnea, or any other immunotherapy toxicities. Her baseline laboratories were normal and follow-up labs prior to her second dose today showed borderline elevated total bilirubin of 1.4 which will be followed. Normal thyroid testing and ACTH is pending. Of note she had her sentinel lymph node dissection in late November andwe will set up her 4-month follow-up surveillance ultrasound this month and she will be contacted with the results. Of note her MRI of brain her baseline did show borderline enlargement of the pituitary without mass and all of her pituitary labs have been unremarkable. She does not have any headaches or visual changes but was advised to watch for any of these symptoms and we would reimage her sooner. Otherwise she will be evaluated with repeat PET/CT and MRI of brainfor surveillance of uptake in the liver with negative liver ultrasound in January and her borderline enlargement of the pituitary noted on baseline study. Patient expressed understanding. PREVIOUS HISTORY: This is a 71-year-old lady referred here by Dr. Hernando Mccartney. She follows with Dr. Wild Centeno. 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 There was ulceration with tumor infiltrating lymphocytes but no lymphovascular invasion. There was positive margins involved. She was referred to general surgery with Dr. Hernando Mccartney who proceeded with wide local excision 09/05/2020 at [facility]. Outside review at [facility] showed at least 2.1 cm Breslow depth melanoma with 2 cm negative margins. She was referred to Dr. Cedrick Berger at [facility]. Right axillary sentinel lymph node biopsy performed 11/28/2020 revealed 1 of 2 lymph nodes positive for micrometastatic involvement without extracapsular extension. Greatest focus of disease was 0.01mm in dimension. The patient was scheduled for PET/CT for metastatic staging on12/26/2020: This result revealed multifocal hypermetabolic uptake of the liver concerning for metastatic disease. She was also noted to have moderate right hydronephrosis and hydroureter. She was scheduled for follow-up liver ultrasound on 01/09/2021 which was unremarkable with no visible liver lesion. Her case was presented at [facility] cutaneous tumor board on 1prior to her metastatic staging. Discussion of referral to medical oncology fordiscussion of immunotherapy. The patient is now returning for medical oncology follow-up after review of all prior pathology and imaging. BRAF status is stillpending. She has healed well. She is a 10-year history of diabetes. She resides in [facility]. Today we reviewed immunotherapy counseling for nivolumab. Although PET/CT was indeterminate for metastatic disease to liver, negative ultrasound warrants treatment of this for curative intent. Common toxicities were reviewed to include infusion reactions, rash, fatigue, diarrhea, visual changes, abnormalities of thyroid/adrenal/pituitary function, pancreatitis, and other autoimmune toxicities. Other toxicities may include pneumonitis, neurologic, hepatic and renal toxicities. The patient signed informed consent and will follow-up as directed. - Summary of Therapies Summary of Therapies: 1. Initial wide local excision at [facility] 09/05/[address] Hernando Mccartney 2. Right sentinel lymph node biopsy 11/28/[address] at [facility] by Dr. Cedrick Berger 3. Delay of immunotherapy due to work-up of possible metastatic disease of liver on PET. Brain MRI returned with no evidence of metastatic disease to brain. Liver ultrasound showed no liver lesions. Abnormalities of FDG avidity on PET/CT are felt to be due to artifact from diabetes. --Cycle 1 day 1 02/23/2021 for adjuvant nivolumab 480 mg IV every 4 weeks for 12 cycles. Last cycle early January 2022, then surveillance. ROS Details: All systems reviewed & no additional complaints except as documented Subjective/ROS - Narrative: CONSTITUTIONAL: Negative for fatigue, negative for fever or night sweats. HEAD AND NECK: Negative for changes in hearing and vision. Negative for mouth ulcers, nasal congestion and nasal drainage. PULMONARY: Negative for chest pain, cough and dyspnea. CARDIOVASCULAR: Negative for claudication and irregular heartbeat/palpitations. GASTROINTESTINAL: Negative for abdominal pain, constipation, decreased appetite,diarrhea, nausea, and vomiting. GENITOURINARY: Negative for dysuria and hematuria. ENDOCRINE: Negative for cold intolerance and heat intolerance. CENTRAL NERVOUS SYSTEM: Negative for gait disturbance and headache. No focal motor or sensory abnormalities. PSYCHIATRIC: Negative for anxiety or depression. DERMATOLOGICAL: Negative for pruritus and rash. Negative for suspicious skin lesions. Well-healed from wide local excision right arm and right axillary sentinel lymph node biopsy. MUSCULOSKELETAL: Negative for back pain and bone/joint symptoms. HEMATOLOGICAL: Negative for bleeding and easy bruising. Negative for history of transfusion or thromboembolic disease ALLERGY: Negative for environmental allergies and food allergies. PMF - History Attestation statement: The following information was validated with the patient. Source: Old Records Reviewed - Medical History Medical History: Medical History (Last Reviewed 07/01/22 @ 20:23 by Rose Ohara MD) Arm fracture, left Arthritis Carpal tunnel syndrome on right s/p suurgery Diabetes mellitus, type 2 Gout H/O pilonidal cyst Hypercholesteremia Hypertension Osteoporosis - Surgical History Surgical History: Surgical History (Last Reviewed 07/01/22 @ 20:23 by Rose Ohara MD) H/O repair of left rotator cuff History of phacoemulsification of cataract of both eyes with intraocular lens implantation History of tubal ligation - Family History Family History: Family History (Last Reviewed 07/01/22 @ 20:23 by Rose Ohara MD) Mother CVA (cerebral vascular accident) Father Leukemia - Social History Smoking Status: Never smoker Substance Use Type: None Home Medications & Allergies Allergies No Known Allergies Allergy (Verified 07/01/22 10:30) Home Medications alendronate 35 mg tablet 35 mg PO QWEEK osteoporosis 04/11/19 [History Confirmed 07/01/22] amlodipine 5 mg tablet 5 mg PO DAILY HTN 04/11/19 [History Confirmed 07/01/22] carvedilol 25 mg tablet 25 mg PO BID HTN 04/11/19 [History Confirmed 07/01/22] dulaglutide 1.5 mg/0.5 mL subcutaneous pen injector 0.75 mg subcut QWEEK DIABETES 04/11/19 [History Confirmed 07/01/22] hydrochlorothiazide 25 mg tablet 25 mg PO DAILY 04/11/19 [History Confirmed 07/01/22] lisinopril 40 mg tablet 40 mg PO DAILY htn 04/11/19 [History Confirmed 07/01/22] metformin 1,000 mg tablet 1,000 mg PO BID diabetes 04/11/19 [History Confirmed 07/01/22] potassium chloride 20 mEq tablet,extended release 20 meq PO DAILY hypokalemia 04/11/19 [History Confirmed 07/01/22] rosuvastatin 10 mg tablet 10 mg PO DAILY hypercholesterolemia 04/11/19 [History Confirmed 07/01/22] vit C 50 mg-E 15 unit-zinc cit 4.5 mg-lutein 2.5 mg-zeaxan chew tablet ([employer] [facility]) 1 tab PO DAILY eye health 04/11/19 [History Confirmed 07/01/22] aspirin 81 mg tablet,delayed release 81 mg PO DAILY 10/01/20 [History Confirmed 07/01/22] spironolactone 25 mg tablet 25 mg PO DAILY 12/30/21 [History Confirmed 07/01/22] furosemide 40 mg tablet (Lasix) 40 mg PO DAILY 01/11/22 [History Confirmed 07/01/22] dapagliflozin 5 mg tablet (Farxiga) 5 mg PO DAILY 03/31/22 [History Confirmed 07/01/22] Objective - Height/Weight Height/Weight: Height 5 ft 2.2 in Weight 99.337 kg BSA for Today's Weight 2.06 - Vital Signs Vital Signs: 07/01/22 10:32 Temperature 97.8 F Pulse Rate [Left Brachial] 55 L Respiratory Rate 16 Blood Pressure [Left Arm] 154/75 H 02 Sat by Pulse Oximetry 98 Oxygen Delivery Method Room Air - Pain Left Knee Pain Intensity: 5 - Distress Screening Distress Screen Results: RN Distress Screening Start: 02/23/21 11:34 Freq: Q30D Status: Active Protocol: Document 06/29/21 10:47 AL (Rec: 06/29/21 10:49 AL [id number]) Distress Screening Distress Score: 8 Emotional Concerns Worry Comments Patient is very nervous about test results. Distress Screening Total 8 Distress score of 4 or more discussed Refused with patient? Distress screening follow up: Patient very nervous about test results, intervention denied. Physical Exam Narrative: CONSTITUTIONAL: The patient is in no acute distress. HEAD / FACE: Normocephalic. EYES: Pupils are equal and reactive to light. Conjunctivae and lids are benign in appearance. Ocular movement intact. EARS: Hearing grossly intact. NOSE / MOUTH / THROAT: Nose, mouth, tongue and oropharynx are benign in appearance. No signs of inflammation. NECK / THYROID: Neck is supple. Thyroid is symmetrical, without thyromegaly, masses or palpable nodules. LYMPHATIC: No palpable cervical, supraclavicular, axillary, or inguinal adenopathy. RESPIRATORY: Normal to inspection. Lungs clear to auscultation and percussion. No wheezing, rales, rhonchi or rubs. Normal effort. CARDIOVASCULAR: Regular rate and rhythm. No murmurs, gallops, or rubs. VASCULAR: Carotid, radial, femoral and pedal pulses present bilaterally. No bruits. ABDOMEN: Bowel sounds normoactive. Soft, nontender and non-distended. No hepatosplenomegaly. No masses. GENITOURINARY: No CVA tenderness. No suprapubic fullness or tenderness. No groinadenopathy. No evidence of hernias. INTEGUMENTARY: The skin is unremarkable. No rashes. No suspicious lesions. BACK / SPINE: The back is nontender. MUSCULOSKELETAL: Normal musculature, no joint deformities or abnormalities, normal range of motion for all four extremities. The right upper arm lesion is well healed from wide local excision. Right axilla well-healed without palpableadenopathy. EXTREMITIES: No edema, cyanosis or clubbing. No Gia sign. NEUROLOGICAL: Alert and oriented. Cranial nerves intact. No gross motor or sensory deficits. PSYCHIATRIC: No anxiety or evidence of depression. - ECOG Performance Status ECOG Score: 1 Results - Labs Labs: Diagram of Most Recent CBC and CMP 06/29/22 08:34 06/29/22 08:34 Labs - Last 7 Days 06/29/22 08:34: PHA Creatinine Clear 64.07, Sodium 139, Potassium 4.9, Chloride 102, Carbon Dioxide 24.6, BUN 21, Creatinine 0.87, Est GFR ( Amer) > 60, Est GFR (Non-Af Amer) > 60, Glucose 130 H, Calcium 10.2, Total Bilirubin 1.2, AST 26, ALT 27, Alkaline Phosphatase 56, Lactate Dehydrogenase 131, Total Protein 7.1, Albumin 4.1, Globulin 3.0, Albumin/Globulin Ratio 1.4 06/29/22 08:34: Corrected WBC 8.4, Uncorrected WBC Count 8.4, RBC 5.04 H, Hgb 15.0, Hct 45.9, MCV 91.0, MCH 29.8, MCHC 32.8, RDW 14.9, Plt Count 226, MPV 7.9,Neut % (Auto) 66.8, Lymph % (Auto) 18.8, [place] % (Auto) 9.5, Eos % (Auto) 3.7, Baso % (Auto) 1.2, Neut # (Auto) 5.6, Lymph # (Auto) 1.6, [place] # (Auto) 0.8, Eos #(Auto) 0.3, Baso # (Auto) 0.1, Nucleated RBC % (auto) 0.1 - Impressions CT chest w con, CT abdomen pelvis w con 06/29/2022 8:26 AM SIGN AND SYMPTOMS: Follow-up malignant melanoma TECHNIQUE: Multidetector CT axial slices of the chest, abdomen and pelvis were obtainedwith IV contrast. Multiplanar reformats were performed and viewed on a separate workstation and reviewed to further define anatomy and possible pathology. CT was performed with one or more of the following dose reduction techniques: Automated exposure control, adjustment of the mA and/or kV accordingto patient size, or use of iterative reconstruction technique. COMPARISON: 12/28/2021. FINDINGS: Lower neck: Thyroid gland within normal limits, no supraclavicle adenopathy. Vessels: Atherosclerotic changes are present in the thoracic aorta and iliac vessels. Mediastinum and Shirley: Within normal limits. Heart: Normal size. No pericardial effusion. Airways: Within normal limits Lungs: There is mild dependent atelectasis. There is also mild linear scarring in the lingula. Pleura: Within normal limits. Chest Wall: Within normal limits. Abdomen: Liver: within normal limits. Bile Ducts: Normal caliber. Gallbladder: No calcified gallstones. Normal caliber wall. Pancreas: within normal limits. Spleen: within normal limits. Adrenals: within normal limits. Kidneys: within normal limits. Pelvis: Reproductive Organs: Calcified fibroid in the fundus Ureters: within normal limits. Bladder: within normal limits. Bowel: There are several uncomplicated colonic diverticula. There is a normal appendix in the right lower quadrant. Mesenteric Lymph Nodes: No enlarged mesenteric lymph nodes. Peritoneum: No ascites or free air, no fluid collection. Vessels: Atherosclerotic changes are noted in the abdominal aorta and its branches. Retroperitoneum: within normal limits. Abdominal Wall: within normal limits. Bones: Degenerative changes are noted in the thoracolumbar spine. Degenerative changes are noted in the hips and sacroiliac joints. CT/CT chest w con IMPRESSION: No evidence of recurrent or metastatic disease. No acute cardiopulmonary pathology. No acute intra-abdominal pathology. Impression dictated by: Francesco Boggs M.D.06/29/2022 2:47 PM Assessment and Plan - TNM Staging Staging: Stage: pIIIC ([id number]) Melanoma 5 year survival: 69% (1) Melanoma Qualifiers: Melanoma location: upper extremity including shoulder Laterality: right Qualified Code(s): C43.61 - Malignant melanoma of right upper limb, including shoulder The patient is a 71-year-old lady who originally presented in August 2020 with ulcerated right upper arm T3 NX MX melanoma. There were tumor infiltrating lymphocytes but no evidence of lymphovascular invasion. She underwent wide local excision with negative margins that revealed at least 2.1 mm wide local excision, but was subsequently referred for right axillary sentinel lymph node biopsy on 11/28/2020 showing 1-2 nodes positive for micrometastatic involvement without extracapsular extension. Dr. Cedrick Berger at [facility] surgical oncology group ordered metastatic staging with MRI of brain which revealed borderline enlargement of pituitary but was negative for metastatic disease. PET/CT showed indeterminate uptake in the hepatic parenchyma. Subsequent liver ultrasound was negative for metastatic disease. 02/23/2021: Patient started adjuvant immunotherapy with checkpoint inhibitor nivolumab 480 mg IV every 4 weeks for 12 cycles. At follow-up 03/23/2021 she hadno immunotherapy related toxicities noted by symptoms, exam, or laboratories. 06/29/2021: No concerning symptoms for immunotherapy toxicity. We continue surveillance of right axilla with followup axillary ultrasound in 3 months--March 2021 ultrasound was reviewed with patient showing no evidence of recurrence, and6- month follow-up PET/CT and follow-up brain MRI in June 2021 reviewed--no concerning findings. --Musculoskeletal sites with SUV 2.8-4, patient reassured and we will perform one further f/u PET/CT in 6 months to determine if uptake still noted in these sites requiring biopsy. 09/30/2021: Still without immunotherapy toxicity. Right axillary ultrasound without abnormal adenopathy. Restaging CT CAP for restaging ordered for Dec 2021 followup visit. 12/30/2021: No concerning symptoms for immunotherapy toxicity. CT CAP for restaging shows no evidence of distant metastases. End of 1 year immunotherapy 01/2022. We continue surveillance of right axilla with followup axillary ultrasound in 3 months--March 2022 ultrasound ordered with f/u labs CBC, CMP, LDH,and TSH. 04/01/2022: Here for 3-month follow-up after completing 1 year of immunotherapy for stage III melanoma in January 2022. Surveillance right axillary ultrasound without evidence of recurrence. Her only change in laboratories is mild increase of creatinine to 1.4 from prior 1.1. No prior history of renal insufficiency and likely medical renal disease. She was encouraged to hydrate and follow-up with primary physician. Next follow-up with me for CT chest abdomen pelvis with surveillance labs CBC, CMP, and LDH in 3 months or sooner as needed. 07/01/2022: 3 month followup, now 5 months from completion of immunotherapy for Stage III melanoma. Rest[address] CT CAP shows no metastases. Unremarkable exam and labs. Next follow-up with me in 3 months unless new issues arise. Patient is in agreement with this plan over this low complexity 20-minute visit to review symptoms, imaging noted above, and labs after completing immunotherapy. 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 She has no headaches or visual changes and we repeated her MRI of brain for surveillance at 6 months in June 2021--no interval change of prominent pituitary stalk. We may follow for symptoms only. (3) Diabetes mellitus Qualifiers: Chronic kidney disease stage: stage 1 Patient has a known history of diabetes mellitus and in 12/2020 she had diffuse uptake in liver on PET/CT. This was due to her hyperglycemia, no issues during her immunotherapy. Followup PET/CT with no abnormal uptake in liver. All further restaging studies with CT CAP with contrast instead. Most recent creatinine normal. - Chemo Plan Chemo Plan (Dose, Rate, Freq): Nivolumab 480 mg IV every 4 weeks for 12 cycles, completed 01/2022. Number of Cycles: 12 Goal of Treatment: Curative - Time with Patient Time Spent with Patient (Follow Up Visit): 25 minutes - Low complexity, exam, lab review, and radiology Coordination of Care & Counseling Time: Greater than 50% of time spent with patient was for coordination of care (as documented) and [id number] counseling of patient and/or family. Dictated By: Rose Ohara MD DD/ [id number] Signed By: <Electronically signed by MD Rose Ohara> 07/01/222034 [facility] Work Phone: Progress note Author Rose Ohara [facility] September 23, 2022 10:21am Note Date/Time September 23, 2022 8:36am [facility] [place] [address] Hem/Onc Follow Up Note - OP Signed Patient: Tosha Mcneal MR#: [id number] : 1950 Acct:[id number] Age/Sex: 71 / F Type: REG RCR Copies to: Wild Centeno,DO Mohan Mccartney MD~ Subjective Date/Time of Service: Date of Service: 09/23/2022 Time of Service: 08:35 Chief Complaint: Patient is here today for a 3 month follow up to go over labs and extremity ultrasound. No new concerns HPI: 09/23/2022: Tosha is here for 3 month followup and review of exam and surveillance right axillary ultrasound. She was seen by dermatology 1 month agowith no new findings. Right axillary ultrasound does not show any concerning lymph nodes in size or containing a pathologically thickened cortex. Her laboratories are unremarkable and no concerning symptoms off immunotherapy sinceJanuary 2022. Next follow-up with restaging CT chest abdomen pelvis in 3 months, sooner if new concerns arise. Low complexity 20-minute follow-up visit. 07/01/2022: 3 month followup after completing adjuvant nivolumab for stage III right posterior arm melanoma 5 months ago. Unremarkable skin exam on dermatology followup. No adenopathy, followup CT Chest/Abdomen/Pelvis shows no distant metastasis. Next f/u with ultrasound right axilla in 3 months with labs. Low complexity 20 minute visit to review imaging. Low complexity 20 minute followup visit. 03/31/2022: Here for follow-up after last dose of nivolumab adjuvant therapy for stage III right posterior arm melanoma given 01/24/2022. No immunotherapy related toxicities. Recently saw dermatology with no evidence of recurrence. We reviewed her right axillary ultrasound that showed no adenopathy. She will be due for bidirectional imaging with CT chest abdomen pelvis in 3 months and surveillance exam at that time. Low complexity 15-minute visit. 12/30/2021: 3 month followup on Nivolumab adjuvant therapy for stage III right posterior arm melanoma. Continues to have no immunotherapy related toxicities. Continues dermatology followup every [address] CAP without recurrence. One more month of adjuvant Nivolumab then f/u 3 months with CBC, CMP, LDH, and TSH with surveillance axillary US. Low complexity 15 min visit. 09/30/2021: 3 month followup on Nivolumab adjuvant therapy for stage III right posterior arm melanoma. Continues to have no immunotherapy related toxicities. Now following with dermatology at [facility] with no recurrence on skin exam. Surveillance ultrasound right axilla without recurrence. She will have routing f/u with [place] in [address] CAP and labs for surveillance on immunotherapy. 06/29/2021: 3 month followup on Nivolumab adjuvant therapy for stage III right posterior arm melanoma. She still notes no infusion reactions, rashes, diarrhea, dyspnea or immunotherapy related toxicities. Interestingly she does not have any routine follow-up with dermatology, despite her diagnosis of melanoma. She had surveillance right axillary US showing no suspicious adenopathy. She had a repeat whole body FDG PET/CT 06/17/2021, which both showedno evidence of metastatic disease. No abnormal uptake in the liver. There weremultiple sites of mild FDG uptake in musculoskeletal system (L3/4, right ankle, right wrist carpal tunnel) and subcutaneous left lower leg with no associated skin lesion or nodule. I reassured the patient this is likely due to degenerative changes and will continue to follow. 06/22/2021 MRI of brain showed a prominent pituitary stalk without mass, stable from prior imaging. I will continue monthly Nivolumab and followup in 3 months, sooner prn. We will also refer to dermatology for skin surveillance. 03/23/2021: Tosha is here for 1 month follow-up after starting adjuvant nivolumab for stage III right posterior arm melanoma. She has tolerated her initial therapy well without infusion reactions, rashes, diarrhea, dyspnea, or any other immunotherapy toxicities. Her baseline laboratories were normal and follow-up labs prior to her second dose today showed borderline elevated total bilirubin of 1.4 which will be followed. Normal thyroid testing and ACTH is pending. Of note she had her sentinel lymph node dissection in late November andwe will set up her 4-month follow-up surveillance ultrasound this month and she will be contacted with the results. Of note her MRI of brain her baseline did show borderline enlargement of the pituitary without mass and all of her pituitary labs have been unremarkable. She does not have any headaches or visual changes but was advised to watch for any of these symptoms and we would reimage her sooner. Otherwise she will be evaluated with repeat PET/CT and MRI of brain for surveillance of uptake in the liver with negative liver ultrasound in January and her borderline enlargement of the pituitary noted on baseline study. Patient expressed understanding. PREVIOUS HISTORY: This is a 71-year-old lady referred here by Dr. Hernando Mccartney. She follows with Dr. Wild Centeno. 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 There was ulceration with tumor infiltrating lymphocytes but no lymphovascular invasion. There was positive margins involved. She was referred to general surgery with Dr. Hernando Mccartney who proceeded with wide local excision 09/05/2020 at [facility]. Outside review at [facility] showed at least 2.1 cm Breslow depth melanoma with 2 cm negative margins. She was referred to Dr. Cedrick Berger at [facility]. Right axillary sentinel lymph node biopsy performed 11/28/2020 revealed 1 of 2 lymph nodes positive for micrometastatic involvement without extracapsular extension. Greatest focus of disease was 0.01mm in dimension. The patient was scheduled for PET/CT for metastatic staging on12/26/2020: This result revealed multifocal hypermetabolic uptake of the liver concerning for metastatic disease. She was also noted to have moderate right hydronephrosis and hydroureter. She was scheduled for follow-up liver ultrasound on 01/09/2021 which was unremarkable with no visible liver lesion. Her case was presented at [facility] cutaneous tumor board on 1prior to her metastatic staging. Discussion of referral to medical oncology fordiscussion of immunotherapy. The patient is now returning for medical oncology follow-up after review of all prior pathology and imaging. BRAF status is stillpending. She has healed well. She is a 10-year history of diabetes. She resides in [facility]. Today we reviewed immunotherapy counseling for nivolumab. Although PET/CT was indeterminate for metastatic disease to liver, negative ultrasound warrants treatment of this for curative intent. Common toxicities were reviewed to include infusion reactions, rash, fatigue, diarrhea, visual changes, abnormalities of thyroid/adrenal/pituitary function, pancreatitis, and other autoimmune toxicities. Other toxicities may include pneumonitis, neurologic, hepatic and renal toxicities. The patient signed informed consent and will follow-up as directed. - Summary of Therapies Summary of Therapies: 1. Initial wide local excision at [facility] 09/05/[address] Hernando Mccartney 2. Right sentinel lymph node biopsy 11/28/2020 at [facility] by Dr. Cedrick Berger 3. Delay of immunotherapy due to work-up of possible metastatic disease of liver on PET. Brain MRI returned with no evidence of metastatic disease to brain. Liver ultrasound showed no liver lesions. Abnormalities of FDG avidity on PET/CT are felt to be due to artifact from diabetes. --Cycle 1 day 1 02/23/2021 for adjuvant nivolumab 480 mg IV every 4 weeks for 12 cycles. Last cycle early January 2022, then surveillance. ROS Details: All systems reviewed & no additional complaints except as documented Subjective/ROS - Narrative: CONSTITUTIONAL: Negative for fatigue, negative for fever or night sweats. HEAD AND NECK: Negative for changes in hearing and vision. Negative for mouth ulcers, nasal congestion and nasal drainage. PULMONARY: Negative for chest pain, cough and dyspnea. CARDIOVASCULAR: Negative for claudication and irregular heartbeat/palpitations. GASTROINTESTINAL: Negative for abdominal pain, constipation, decreased appetite,diarrhea, nausea, and vomiting. GENITOURINARY: Negative for dysuria and hematuria. ENDOCRINE: Negative for cold intolerance and heat intolerance. CENTRAL NERVOUS SYSTEM: Negative for gait disturbance and headache. No focal motor or sensory abnormalities. PSYCHIATRIC: Negative for anxiety or depression. DERMATOLOGICAL: Negative for pruritus and rash. Negative for suspicious skin lesions. Well-healed from wide local excision right arm and right axillary sentinel lymph node biopsy. MUSCULOSKELETAL: Negative for back pain and bone/joint symptoms. HEMATOLOGICAL: Negative for bleeding and easy bruising. Negative for history of transfusion or thromboembolic disease ALLERGY: Negative for environmental allergies and food allergies. PMFSH - History Attestation statement: The following information was validated with the patient. Source: Old Records Reviewed - Medical History Medical History: Medical History (Last Reviewed 09/23/22 @ 10:17 by Rose Ohara MD) Arm fracture, left Arthritis Carpal tunnel syndrome on right s/p suurgery Diabetes mellitus, type 2 Gout H/O pilonidal cyst Hypercholesteremia Hypertension Osteoporosis - Surgical History Surgical History: Surgical History (Last Reviewed 09/23/22 @ 10:17 by Rose Ohara MD) H/O repair of left rotator cuff History of phacoemulsification of cataract of both eyes with intraocular lens implantation History of tubal ligation - Family History Family History: Family History (Last Reviewed 09/23/22 @ 10:17 by Rose Ohara MD) Mother CVA (cerebral vascular accident) Father Leukemia - Social History Smoking Status: Never smoker Substance Use Type: None Home Medications & Allergies Allergies No Known Allergies Allergy (Verified 09/23/22 08:22) Home Medications alendronate 35 mg tablet 35 mg PO QWEEK osteoporosis 04/11/19 [History Confirmed 09/23/22] amlodipine 5 mg tablet 5 mg PO DAILY HTN 04/11/19 [History Confirmed 09/23/22] carvedilol 25 mg tablet 25 mg PO BID HTN 04/11/19 [History Confirmed 09/23/22] dulaglutide 1.5 mg/0.5 mL subcutaneous pen injector 0.75 mg subcut QWEEK DIABETES 04/11/19 [History Confirmed 09/23/22] hydrochlorothiazide 25 mg tablet 25 mg PO DAILY 04/11/19 [History Confirmed 09/23/22] lisinopril 40 mg tablet 40 mg PO DAILY htn 04/11/19 [History Confirmed 09/23/22] metformin 1,000 mg tablet 1,000 mg PO BID diabetes 04/11/19 [History Confirmed 09/23/22] potassium chloride 20 mEq tablet,extended release 20 meq PO DAILY hypokalemia 04/11/19 [History Confirmed 09/23/22] rosuvastatin 10 mg tablet 10 mg PO DAILY hypercholesterolemia 04/11/19 [History Confirmed 09/23/22] vit C 50 mg-E 15 unit-zinc cit 4.5 mg-lutein 2.5 mg-zeaxan chew tablet (Ocuvite Eye Health) 1 tab PO DAILY eye health 04/11/19 [History Confirmed 09/23/22] aspirin 81 mg tablet,delayed release 81 mg PO DAILY 10/01/20 [History Confirmed 09/23/22] spironolactone 25 mg tablet 25 mg PO DAILY 12/30/21 [History Confirmed 09/23/22] furosemide 40 mg tablet (Lasix) 40 mg PO DAILY 01/11/22 [History Confirmed 09/23/22] dapagliflozin 5 mg tablet (Farxiga) 5 mg PO DAILY 03/31/22 [History Confirmed 09/23/22] Objective - Height/Weight Height/Weight: Height 5 ft 2.2 in Weight 99.9 kg BSA for Today's Weight 2.06 - Vital Signs Vital Signs: 09/23/22 08:25 Temperature 97.8 F Pulse Rate [Left Brachial] 68 Respiratory Rate 16 Blood Pressure [Left Arm] 153/66 H 02 Sat by Pulse Oximetry 94 L Oxygen Delivery Method Room Air - Pain Left Knee Pain Intensity: 5 - Distress Screening Distress Screen Results: RN Distress Screening Start: 02/23/21 11:34 Freq: Q30D Status: Active Protocol: Document 06/29/21 10:47 AL (Rec: 06/29/21 10:49 AL [id number]) Distress Screening Distress Score: 8 Emotional Concerns Worry Comments Patient is very nervous about test results. Distress Screening Total 8 Distress score of 4 or more discussed Refused with patient? Distress screening follow up: Patient very nervous about test results, intervention denied. Physical Exam Narrative: CONSTITUTIONAL: The patient is in no acute distress. HEAD / FACE: Normocephalic. EYES: Pupils are equal and reactive to light. Conjunctivae and lids are benign in appearance. Ocular movement intact. EARS: Hearing grossly intact. NOSE / MOUTH / THROAT: Nose, mouth, tongue and oropharynx are benign in appearance. No signs of inflammation. NECK / THYROID: Neck is supple. Thyroid is symmetrical, without thyromegaly, masses or palpable nodules. LYMPHATIC: No palpable cervical, supraclavicular, axillary, or inguinal adenopathy. RESPIRATORY: Normal to inspection. Lungs clear to auscultation and percussion. No wheezing, rales, rhonchi or rubs. Normal effort. CARDIOVASCULAR: Regular rate and rhythm. No murmurs, gallops, or rubs. VASCULAR: Carotid, radial, femoral and pedal pulses present bilaterally. No bruits. ABDOMEN: Bowel sounds normoactive. Soft, nontender and non-distended. No hepatosplenomegaly. No masses. GENITOURINARY: No CVA tenderness. No suprapubic fullness or tenderness. No groinadenopathy. No evidence of hernias. INTEGUMENTARY: The skin is unremarkable. No rashes. No suspicious lesions. BACK / SPINE: The back is nontender. MUSCULOSKELETAL: Normal musculature, no joint deformities or abnormalities, normal range of motion for all four extremities. The right upper arm lesion is well healed from wide local excision. Right axilla well-healed without palpableadenopathy. EXTREMITIES: No edema, cyanosis or clubbing. No Gia sign. NEUROLOGICAL: Alert and oriented. Cranial nerves intact. No gross motor or sensory deficits. PSYCHIATRIC: No anxiety or evidence of depression. - ECOG Performance Status ECOG Score: 0 Results - Labs Labs: Diagram of Most Recent CBC and CMP 09/22/22 09:54 09/22/22 09:54 Labs - Last 7 Days 09/22/22 09:54: PHA Creatinine Clear 70.04, Sodium 135 L, Potassium 4.3, Chloride 99, Carbon Dioxide 29.3, Anion Gap 11.0, BUN 16, Creatinine 0.80, Est GFR ( Amer) > 60, Est GFR (Non-Af Amer) > 60, Glucose 113 H, Calcium 9.2,Total Bilirubin 1.2, AST 17, ALT 16, Alkaline Phosphatase 45, Lactate Dehydrogenase 106, Total Protein 6.5, Albumin 3.7, Globulin 2.8, Albumin/Globulin Ratio 1.3 09/22/22 09:54: Corrected WBC 6.9, Uncorrected WBC Count 6.9, RBC 4.79, Hgb 13.9, Hct 43.2, MCV 90.2, MCH 29.0, MCHC 32.2, RDW 14.7, Plt Count 227, MPV 8.0,Neut % (Auto) 65.7, Lymph % (Auto) 21.6, [place] % (Auto) 9.7, Eos % (Auto) 2.0, Baso % (Auto) 1.0, Neut # (Auto) 4.5, Lymph # (Auto) 1.5, [place] # (Auto) 0.7, Eos# (Auto) 0.1, Baso # (Auto) 0.1, Nucleated RBC % (auto) 0.1 - Impressions US extremity nonvascular 09/21/2022 9:43 AM SIGNS AND SYMPTOMS: Surveillance melanoma, right Axilla COMPARISON: 03/29/2022, 09/24/2021, and 03/27/2021 FINDINGS: Grayscale and color Doppler sonographic images along the right axillawere obtained. Within the right axilla there are benign-appearing lymph nodes the largest of which measures 1.9 x 1.3 x 1.7 cm in greatest dimension with a large central fatty hilum and thin peripheral hypoechoic cortex. No pathologically enlarged lymph nodes are noted. No abnormal thickened lymph node cortex is visualized. There is no evidence of cyst, mass, architectural distortion, or atypical calcification. US/US extremity nonvascular IMPRESSION: Redemonstration of multiple benign-appearing axillary lymph nodes on the right none of which appear to be pathologically enlarged or contain a pathologically thickened cortex. Close clinical observation is recommended. ASSESSMENT: BIRADS-2 Benign RECOMMENDATION: Close clinical observation of these lymph nodes is recommended with repeat imaging as symptoms warrant. Impression dictated by: Francesco Boggs M.D.09/21/2022 10:15 AM Assessment and Plan - TNM Staging Staging: Stage: pIIIC ([id number]) Melanoma 5 year survival: 69% (1) Melanoma Qualifiers: Melanoma location: upper extremity including shoulder Laterality: right Qualified Code(s): C43.61 - Malignant melanoma of right upper limb, including shoulder The patient is a 71-year-old lady who originally presented in August 2020 with ulcerated right upper arm T3 NX MX melanoma. There were tumor infiltrating lymphocytes but no evidence of lymphovascular invasion. She underwent wide local excision with negative margins that revealed at least 2.1 mm wide local excision, but was subsequently referred for right axillary sentinel lymph node biopsy on 11/28/2020 showing 1-2 nodes positive for micrometastatic involvement without extracapsular extension. Dr. Cedrick Berger at [facility] surgical oncology group ordered metastatic staging with MRI of brain which revealed borderline enlargement of pituitary but was negative for metastatic disease. PET/CT showed indeterminate uptake in the hepatic parenchyma. Subsequent liver ultrasound was negative for metastatic disease. 02/23/2021: Patient started adjuvant immunotherapy with checkpoint inhibitor nivolumab 480 mg IV every 4 weeks for 12 cycles. At follow-up 03/23/2021 she hadno immunotherapy related toxicities noted by symptoms, exam, or laboratories. 06/29/2021: No concerning symptoms for immunotherapy toxicity. We continue surveillance of right axilla with followup axillary ultrasound in 3 months--March 2021 ultrasound was reviewed with patient showing no evidence of recurrence, and6- month follow-up PET/CT and follow-up brain MRI in June 2021 reviewed--no concerning findings. --Musculoskeletal sites with SUV 2.8-4, patient reassured and we will perform one further f/u PET/CT in 6 months to determine if uptake still noted in these sites requiring biopsy. 09/30/2021: Still without immunotherapy toxicity. Right axillary ultrasound without abnormal adenopathy. Restaging CT CAP for restaging ordered for Dec 2021 followup visit. 12/30/2021: No concerning symptoms for immunotherapy toxicity. CT CAP for restaging shows no evidence of distant metastases. End of 1 year immunotherapy 01/2022. We continue surveillance of right axilla with followup axillary ultrasound in 3 months--March 2022 ultrasound ordered with f/u labs CBC, CMP, LDH,and TSH. 04/01/2022: Here for 3-month follow-up after completing 1 year of immunotherapy for stage III melanoma in January 2022. Surveillance right axillary ultrasound without evidence of recurrence. Her only change in laboratories is mild increase of creatinine to 1.4 from prior 1.1. No prior history of renal insufficiency and likely medical renal disease. She was encouraged to hydrate and follow-up with primary physician. Next follow-up with me for CT chest abdomen pelvis with surveillance labs CBC, CMP, and LDH in 3 months or sooner asneeded. 07/01/2022: 3 month followup, now 5 months from completion of immunotherapy for Stage III melanoma. Rest[address] CAP shows no metastases. Unremarkable exam and labs. Next follow-up with me in 3 months unless new issues arise. 09/23/2022: 3-month follow-up with no new concerning symptoms. Dermatology follow-up shows no new skin lesions. No evidence of recurrence at primary site. Surveillance ultrasound right axilla without enlarging lymph nodes or pathologic thickening of cortex. We will continue surveillance with follow-up symptom review, exam, and 3-month CT chest abdomen pelvis to monitor for metastatic disease and defer next surveillance right axillary ultrasound for 6 months. She may return sooner if new issues arise. Patient is in agreement with this plan over this low complexity 20-minute visit to review symptoms, imaging noted above, and labs after completing immunotherapy. 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 She has no headaches or visual changes and we repeated her MRI of brain for surveillance at 6 months in June 2021--no interval change of prominent pituitary stalk. We may follow for symptoms only. (3) Diabetes mellitus Qualifiers: Chronic kidney disease stage: stage 1 Patient has a known history of diabetes mellitus and in 12/2020 she had diffuse uptake in liver on PET/CT. This was due to her hyperglycemia, no issues during her immunotherapy. Followup PET/CT with no abnormal uptake in liver. All further restaging studies with CT CAP with contrast instead. Most recent creatinine normal. - Chemo Plan Chemo Plan (Dose, Rate, Freq): Nivolumab 480 mg IV every 4 weeks for 12 cycles, completed 01/2022. Number of Cycles: 12 Goal of Treatment: Curative - Time with Patient Time Spent with Patient (Follow Up Visit): Less than 20 minutes - Low complexity, exam, lab review, and radiology review Coordination of Care & Counseling Time: Greater than 50% of time spent with patient was for coordination of care (as documented) and [id number] counseling of patient and/or family. Dictated By: Rose Ohara MD DD/ [id number] Signed By: <Electronically signed by MD Rose Ohara> 09/23/22 1021 [facility] Work Phone: Progress note Author Rose Ohara [facility] April 13, 2023 5:59pm Note Date/Time April 13, 2023 9:30a m [facility] [place] [address] Hem/Onc Follow Up Note - OP Signed Patient: Tosha Mcneal MR#: [id number] : 1950 Acct:[id number] Age/Sex: 72 / F Type: REG RCR Copies to: DO Mohan Haddad MD~ Subjective Date/Time of Service: Date of Service: 04/13/2023 Time of Service: 09:29 Chief Complaint: Patient for a 4 month follow up visit and go over labs extremity us and labs HPI: 04/13/2023: Nearly 4 month followup of Stage III melanoma 15 months from end of adjuvant Nivolumab. Last dermatology visit 01/2023 with no new lesions. US of right axilla with no abnormalities. Plan annual CT CAP for restaging unless newsymptoms arise. She is leaving for a cruise to [place] this month. Continue 4 month followup with axillary ultrasound prior to visit, sooner prn. Low complexity 25 minute followup of exam and axillary US. 12/23/2022: Tosha is here for 3-month follow-up and review of 6-month surveillance CT chest abdomen pelvis for restaging stage III melanoma. She completed 1 year of adjuvant Nivolumab in January 2022. No interval changes in medical history and has her scheduled dermatology follow-up in January. No evidence of recurrence on CT chest abdomen pelvis and labs are unremarkable. Genevieve set up her right axillary ultrasound in April 2023 (we will schedule around cruise planned that month). We will defer her next follow-up to 4 months and continue every 4-month axillary ultrasound surveillance with restaging CTs deferred to 1 year unless new symptoms arise. Low complexity visit 25 minutes to review imaging and follow-up plan. 09/23/2022: Tosha is here for 3 month followup and review of exam and surveillance right axillary ultrasound. She was seen by dermatology 1 month agowith no new findings. Right axillary ultrasound does not show any concerning lymph nodes in size or containing a pathologically thickened cortex. Her laboratories are unremarkable and no concerning symptoms off immunotherapy sinceJanuary 2022. Next follow-up with restaging CT chest abdomen pelvis in 3 months, sooner if new concerns arise. Low complexity 20-minute follow-up visit. 07/01/2022: 3 month followup after completing adjuvant nivolumab for stage III right posterior arm melanoma 5 months ago. Unremarkable skin exam on dermatology followup. No adenopathy, followup CT Chest/Abdomen/Pelvis shows no distant metastasis. Next f/u with ultrasound right axilla in 3 months with labs. Low complexity 20 minute visit to review imaging. Low complexity 20 minute followup visit. 03/31/2022: Here for follow-up after last dose of nivolumab adjuvant therapy for stage III right posterior arm melanoma given 01/24/2022. No immunotherapy related toxicities. Recently saw dermatology with no evidence of recurrence. We reviewed her right axillary ultrasound that showed no adenopathy. She will be due for bidirectional imaging with CT chest abdomen pelvis in 3 months and surveillance exam at that time. Low complexity 15-minute visit. 12/30/2021: 3 month followup on Nivolumab adjuvant therapy for stage III right posterior arm melanoma. Continues to have no immunotherapy related toxicities. Continues dermatology followup every [address] CAP without recurrence. One more month of adjuvant Nivolumab then f/u 3 months with CBC, CMP, LDH, and TSH with surveillance axillary US. Low complexity 15 min visit. 09/30/2021: 3 month followup on Nivolumab adjuvant therapy for stage III right posterior arm melanoma. Continues to have no immunotherapy related toxicities. Now following with dermatology at [facility] with no recurrence on skin exam. Surveillance ultrasound right axilla without recurrence. She will have routing f/u with me in [address] CAP and labs for surveillance on immunotherapy. 06/29/2021: 3 month followup on Nivolumab adjuvant therapy for stage III right posterior arm melanoma. She still notes no infusion reactions, rashes, diarrhea, dyspnea or immunotherapy related toxicities. Interestingly she does not have any routine follow-up with dermatology, despite her diagnosis of melanoma. She had surveillance right axillary US showing no suspicious adenopathy. She had a repeat whole body FDG PET/CT 06/17/2021, which both showedno evidence of metastatic disease. No abnormal uptake in the liver. There weremultiple sites of mild FDG uptake in musculoskeletal system (L3/4, right ankle, right wrist carpal tunnel) and subcutaneous left lower leg with no associated skin lesion or nodule. I reassured the patient this is likely due to degenerative changes and will continue to follow. 06/22/2021 MRI of brain showeda prominent pituitary stalk without mass, stable from prior imaging. I will continue monthly Nivolumab and followup in 3 months, sooner prn. We will also refer to dermatology for skin surveillance. 03/23/2021: Tosha is here for 1 month follow-up after starting adjuvant nivolumab for stage III right posterior arm melanoma. She has tolerated her initial therapy well without infusion reactions, rashes, diarrhea, dyspnea, or any otherimmunotherapy toxicities. Her baseline laboratories were normal and follow-up labs prior to her second dose today showed borderline elevated total bilirubin of 1.4 which will be followed. Normal thyroid testing and ACTH is pending. Of note she had her sentinel lymph node dissection in late November and we will set up her 4-month follow-up surveillance ultrasound this month and she will be contacted with the results. Of note her MRI of brain her baseline did show borderline enlargement of the pituitary without mass and all of her pituitary labs have been unremarkable. She does not have any headaches or visual changes but was advised to watch for any of these symptoms and we would reimage her sooner. Otherwise she will be evaluated with repeat PET/CT and MRI of brain forsurveillance of uptake in the liver with negative liver ultrasound in January and her borderline enlargement of the pituitary noted on baseline study. Patient expressed understanding. PREVIOUS HISTORY: This is a now 72-year-old lady referred here by Dr. Hernando Mccartney. She follows with Dr. Wild Centeno. 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 There was ulceration with tumor infiltrating lymphocytes but no lymphovascular invasion. There was positive margins involved. She was referred to general surgery with Dr. Hernando Mccartney who proceeded with wide local excision 09/05/2020 at [facility]. Outside review at [facility] showed at least 2.1 cm Breslow depth melanoma with 2 cm negative margins. She was referred to Dr. Cedrick Berger at [facility]. Right axillary sentinel lymph node biopsy performed 11/28/2020 revealed 1 of 2 lymph nodes positive for micrometastatic involvement without extracapsular extension. Greatest focus of disease was 0.01 mm in dimension. The patient was scheduled for PET/CT for metastatic staging on 12/26/2020: This result revealed multifocal hypermetabolic uptake of the liver concerning for metastatic disease. She was also noted to have moderate right hydronephrosis and hydroureter. She was scheduled for follow-up liver ultrasound on 01/09/2021 which was unremarkable with no visible liver lesion. Her case was presented at [facility] cutaneous tumor board on 1prior to her metastatic staging. Discussion of referral to medical oncology fordiscussion of immunotherapy. The patient is now returning for medical oncology follow-up after review of all prior pathology and imaging. BRAF status is stillpending. She has healed well. She is a 10-year history of diabetes. She resides in [facility]. Today we reviewed immunotherapy counseling for nivolumab. Although PET/CT was indeterminate for metastatic disease to liver, negative ultrasound warrants treatment of this for curative intent. Common toxicities were reviewed to include infusion reactions, rash, fatigue, diarrhea, visual changes, abnormalities of thyroid/adrenal/pituitary function, pancreatitis, and other autoimmune toxicities. Other toxicities may include pneumonitis, neurologic, hepatic and renal toxicities. The patient signed informed consent and will follow-up as directed. - Summary of Therapies Summary of Therapies: 1. Initial wide local excision at [facility] 09/05/[address] Hernando Mccartney 2. Right sentinel lymph node biopsy 11/28/2020 at [facility] by Dr. Cedrick Berger 3. Delay of immunotherapy due to work-up of possible metastatic disease of liver on PET. Brain MRI returned with no evidence of metastatic disease to brain. Liver ultrasound showed no liver lesions. Abnormalities of FDG avidity on PET/CT are felt to be due to artifact from diabetes. --Cycle 1 day 1 02/23/2021 for adjuvant nivolumab 480 mg IV every 4 weeks for 12 cycles. Last cycle early January 2022, then surveillance. ROS Details: All systems reviewed & no additional complaints except as documented Subjective/ROS - Narrative: CONSTITUTIONAL: Negative for fatigue, negative for fever or night sweats. HEAD AND NECK: Negative for changes in hearing and vision. Negative for mouth ulcers, nasal congestion and nasal drainage. PULMONARY: Negative for chest pain, cough and dyspnea. CARDIOVASCULAR: Negative for claudication and irregular heartbeat/palpitations. GASTROINTESTINAL: Negative for abdominal pain, constipation, decreased appetite,diarrhea, nausea, and vomiting. GENITOURINARY: Negative for dysuria and hematuria. ENDOCRINE: Negative for cold intolerance and heat intolerance. CENTRAL NERVOUS SYSTEM: Negative for gait disturbance and headache. No focal motor or sensory abnormalities. PSYCHIATRIC: Negative for anxiety or depression. DERMATOLOGICAL: Negative for pruritus and rash. Negative for suspicious skin lesions. Well-healed from wide local excision right arm and right axillary sentinel lymph node biopsy. MUSCULOSKELETAL: Negative for back pain and bone/joint symptoms. HEMATOLOGICAL: Negative for bleeding and easy bruising. Negative for history of transfusion or thromboembolic disease ALLERGY: Negative for environmental allergies and food allergies. PMFSH - History Attestation statement: The following information was validated with the patient. Source: Old Records Reviewed - Medical History Medical History: Medical History (Last Reviewed 04/13/23 @ 17:54 by Rose Ohara MD) Arm fracture, left Arthritis Carpal tunnel syndrome on right s/p suurgery Diabetes mellitus, type 2 Gout H/O pilonidal cyst Hypercholesteremia Hypertension Osteoporosis - Surgical History Surgical History: Surgical History (Last Reviewed 04/13/23 @ 17:54 by Rose Ohara MD) H/O repair of left rotator cuff History of phacoemulsification of cataract of both eyes with intraocular lens implantation History of tubal ligation - Family History Family History: Family History (Last Reviewed 04/13/23 @ 17:54 by Rose Ohara MD) Mother CVA (cerebral vascular accident) Father Leukemia - Social History Smoking Status: Never smoker Substance Use Type: None Home Medications & Allergies Allergies No Known Allergies Allergy (Verified 04/13/23 09:16) Home Medications alendronate 35 mg tablet 35 mg PO QWEEK osteoporosis 04/11/19 [History Confirmed 04/13/23] amlodipine 5 mg tablet 5 mg PO DAILY HTN 04/11/19 [History Confirmed 04/13/23] carvedilol 25 mg tablet 25 mg PO BID HTN 04/11/19 [History Confirmed 04/13/23] dulaglutide 1.5 mg/0.5 mL subcutaneous pen injector 0.75 mg subcut QWEEK DIABETES 04/11/19 [History Confirmed 04/13/23] lisinopril 40 mg tablet 40 mg PO DAILY htn 04/11/19 [History Confirmed 04/13/23] metformin 1,000 mg tablet 1,000 mg PO BID diabetes 04/11/19 [History Confirmed 04/13/23] potassium chloride 20 mEq tablet,extended release 20 meq PO DAILY hypokalemia 04/11/19 [History Confirmed 04/13/23] rosuvastatin 10 mg tablet 10 mg PO DAILY hypercholesterolemia 04/11/19 [History Confirmed 04/13/23] vit C 50 mg-E 15 unit-zinc cit 4.5 mg-lutein 2.5 mg-zeaxan chew tablet (Oc[facility]) 1 tab PO DAILY eye health 04/11/19 [History Confirmed 04/13/23] aspirin 81 mg tablet,delayed release 81 mg PO DAILY 10/01/20 [History Confirmed 04/13/23] spironolactone 25 mg tablet 25 mg PO DAILY 12/30/21 [History Confirmed 04/13/23] furosemide 40 mg tablet (Lasix) 40 mg PO DAILY 01/11/22 [History Confirmed 04/13/23] Objective - Height/Weight Height/Weight: Height 5 ft 2.2 in Weight 99.337 kg BSA for Today's Weight 2.06 - Vital Signs Vital Signs: 04/13/23 09:19 Temperature 97.9 F Pulse Rate [Left Brachial] 64 Respiratory Rate 16 Blood Pressure [Left Arm] 148/67 H 02 Sat by Pulse Oximetry 97 Oxygen Delivery Method Room Air - Pain Left Knee Pain Intensity: 5 - Distress Screening Distress Screen Results: RN Distress Screening Start: 02/23/21 11:34 Freq: Q30D Status: Active Protocol: Document 06/29/21 10:47 AL (Rec: 06/29/21 10:49 AL [id number]) Distress Screening Distress Score: 8 Emotional Concerns Worry Comments Patient is very nervous about test results. Distress Screening Total 8 Distress score of 4 or more discussed Refused with patient? Distress screening follow up: Patient very nervous about test results, intervention denied. Physical Exam Narrative: CONSTITUTIONAL: The patient is in no acute distress. HEAD / FACE: Normocephalic. EYES: Pupils are equal and reactive to light. Conjunctivae and lids are benign in appearance. Ocular movement intact. EARS: Hearing grossly intact. NOSE / MOUTH / THROAT: Nose, mouth, tongue and oropharynx are benign in appearance. No signs of inflammation. NECK / THYROID: Neck is supple. Thyroid is symmetrical, without thyromegaly, masses or palpable nodules. LYMPHATIC: No palpable cervical, supraclavicular, axillary, or inguinal adenopathy. RESPIRATORY: Normal to inspection. Lungs clear to auscultation and percussion. No wheezing, rales, rhonchi or rubs. Normal effort. CARDIOVASCULAR: Regular rate and rhythm. No murmurs, gallops, or rubs. VASCULAR: Carotid, radial, femoral and pedal pulses present bilaterally. No bruits. ABDOMEN: Bowel sounds normoactive. Soft, nontender and non-distended. No hepatosplenomegaly. No masses. GENITOURINARY: No CVA tenderness. No suprapubic fullness or tenderness. No groinadenopathy. No evidence of hernias. INTEGUMENTARY: The skin is unremarkable. No rashes. No suspicious lesions. BACK / SPINE: The back is nontender. MUSCULOSKELETAL: Normal musculature, no joint deformities or abnormalities, normal range of motion for all four extremities--has knee pain from osteoarthritis and notes that she will be scheduling knee replacement surgery inthe future. The right upper arm lesion is well healed from wide local excision. Right axilla well-healed without palpable adenopathy. EXTREMITIES: No edema, cyanosis or clubbing. No Gia sign. NEUROLOGICAL: Alert and oriented. Cranial nerves intact. No gross motor or sensory deficits. PSYCHIATRIC: No anxiety or evidence of depression. - ECOG Performance Status ECOG Score: 1 Results - Labs Labs: Diagram of Most Recent CBC and CMP 04/12/23 09:13 04/12/23 09:13 Labs - Last 7 Days 04/12/23 09:13: PHA Creatinine Clear 54.77, Sodium 140, Potassium 4.8, Chloride 102, Carbon Dioxide 27.2, Anion Gap 15.6 H, BUN 34 H, Creatinine 1.01, Est GFR (CKD- EPI) 58.780, Glucose 203 H, Calcium 9.1, Total Bilirubin 0.9, AST 16, ALT 17, Alkaline Phosphatase 57, Lactate Dehydrogenase 120 L, Total Protein 6.7, Albumin 4.1, Globulin 2.6, Albumin/Globulin Ratio 1.6 04/12/23 09:13: Corrected WBC 6.9, Uncorrected WBC Count 6.9, RBC 4.62, Hgb 13.5, Hct 41.4, MCV 89.4, MCH 29.3, MCHC 32.7, RDW 14.7, Plt Count 197, MPV 8.3,Neut % (Auto) 62.3, Lymph % (Auto) 26.0, [place] % (Auto) 8.6, Eos % (Auto) 2.2, Baso % (Auto) 0.9, Nucleat RBC Rel Count 0.1, Neut # (Auto) 4.3, Lymph # (Auto) 1.8, [place] # (Auto) 0.6, Eos # (Auto) 0.2, Baso # (Auto) 0.1 - Impressions Date of Service: 04/07/23 US/US extremity nonvascular: Surveillance Melanoma Copies to: Rose Ohara MD~ Exam: Right axillary ultrasound. Reason for exam: History of melanoma. Follow-up. COMPARISON: Prior right axillary ultrasound 09/21/2022. TECHNIQUE: Grayscale and color Doppler images of the right axilla were obtained. FINDINGS: Imaging of the right axilla demonstrates multiple benign-appearing lymph nodes, largest measuring 1.9 cm in greatest dimension, unchanged from the prior ultrasound study. No sinister-appearing lymph nodes are identified. No suspicious mass is seen within the right axilla. US/US extremity nonvascular IMPRESSION: Benign-appearing lymph nodes within the right axilla, grossly unchanged from the prior study. Impression dictated by: Miki Kruse Jr., D.O.04/07/2023 8:57 AM Assessment and Plan - TNM Staging Staging: Stage: pIIIC ([id number]) Melanoma 5 year survival: 69% (1) Melanoma Qualifiers: Melanoma location: upper extremity including shoulder Laterality: right Qualified Code(s): C43.61 - Malignant melanoma of right upper limb, including shoulder The patient is a 72-year-old lady who originally presented in August 2020 with ulcerated right upper arm T3 NX MX melanoma. There were tumor infiltrating lymphocytes but no evidence of lymphovascular invasion. She underwent wide local excision with negative margins that revealed at least 2.1 mm wide local excision, but was subsequently referred for right axillary sentinel lymph node biopsy on 11/28/2020 showing 1-2 nodes positive for micrometastatic involvement without extracapsular extension. Dr. Cedrick Berger at [facility] surgical oncology group ordered metastatic staging with MRI of brain which revealed borderline enlargement of pituitary but was negative for metastatic disease. PET/CT showed indeterminate uptake in the hepatic parenchyma. Subsequent liver ultrasound was negative for metastatic disease. 02/23/2021: Patient started adjuvant immunotherapy with checkpoint inhibitor nivolumab 480 mg IV every 4 weeks for 12 cycles. At follow-up 03/23/2021 she hadno immunotherapy related toxicities noted by symptoms, exam, or laboratories. 06/29/2021: No concerning symptoms for immunotherapy toxicity. We continue surveillance of right axilla with followup axillary ultrasound in 3 months--March 2021 ultrasound was reviewed with patient showing no evidence of recurrence, and6- month follow-up PET/CT and follow-up brain MRI in June 2021 reviewed--no concerning findings. --Musculoskeletal sites with SUV 2.8-4, patient reassured and we will perform one further f/u PET/CT in 6 months to determine if uptake still noted in these sites requiring biopsy. 09/30/2021: Still without immunotherapy toxicity. Right axillary ultrasound without abnormal adenopathy. Restaging CT CAP for restaging ordered for Dec 2021 followup visit. 12/30/2021: No concerning symptoms for immunotherapy toxicity. CT CAP for restaging shows no evidence of distant metastases. End of 1 year immunotherapy 01/2022. We continue surveillance of right axilla with followup axillary ultrasound in 3 months--March 2022 ultrasound ordered with f/u labs CBC, CMP, LDH,and TSH. 04/01/2022: Here for 3-month follow-up after completing 1 year of immunotherapy for stage III melanoma in January 2022. Surveillance right axillary ultrasound without evidence of recurrence. Her only change in laboratories is mild increase of creatinine to 1.4 from prior 1.1. No prior history of renal insufficiency and likely medical renal disease. She was encouraged to hydrate and follow-up with primary physician. Next follow-up with me for CT chest abdomen pelvis with surveillance labs CBC, CMP, and LDH in 3 months or sooner asneeded. 07/01/2022: 3 month followup, now 5 months from completion of immunotherapy for Stage III melanoma. Restaging [address] CAP shows no metastases. Unremarkable exam and labs. Next follow-up with me in 3 months unless new issues arise. 09/23/2022: 3-month follow-up with no new concerning symptoms. Dermatology follow-up shows no new skin lesions. No evidence of recurrence at primary site. Surveillance ultrasound right axilla without enlarging lymph nodes or pathologic thickening of cortex. We will continue surveillance with follow-up symptom review, exam, and 3-month CT chest abdomen pelvis to monitor for metastatic disease and defer next surveillance right axillary ultrasound for 6 months. She may return sooner if new issues arise. 12/23/2022: 3-month follow-up with no new concerning symptoms. She is now 2-1/2 years from diagnosis and nearly 1 year from completion of Nivolumab adjuvant therapy. Restaging CT chest abdomen pelvis shows no evidence of metastatic disease. We will change follow-up to every 4 months for right axillary ultrasound (next due in April 2023) and we will continue to follow ultrasounds every 4 months and defer restaging CT chest abdomen pelvis to annual unless new symptoms arise. 04/13/2023: 4-month followup of Stage III melanoma with no new skin lesions on dermatology followup and no axillary fullness on exam or right axillary US imaging. Will continue to follow with exam and right axillary US every [address] Chest/Abdomen/Pelvis in 12/2023, sooner prn. Patient is in agreement with this plan over this low complexity 25-minute visit to review symptoms, imaging noted above, and labs after completing immunotherapyMar2021. 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 She has no headaches or visual changes and we repeated her MRI of brain for surveillance at 6 months in June 2021--no interval change of prominent pituitary stalk. We may follow for symptoms only. (3) Diabetes mellitus Qualifiers: Chronic kidney disease stage: stage 1 Patient has a known history of diabetes mellitus and in 12/2020 she had diffuse uptake in liver on PET/CT. This was due to her hyperglycemia, no issues during her immunotherapy. Followup PET/CT with no abnormal uptake in liver. All further restaging studies with CT CAP with contrast instead. Most recent creatinine normal. - Chemo Plan Chemo Plan (Dose, Rate, Freq): Nivolumab 480 mg IV every 4 weeks for 12 cycles, completed 01/2022. Number of Cycles: 12 Goal of Treatment: Curative - Time with Patient Time Spent with Patient (Follow Up Visit): 25 minutes - Low complexity, exam, lab review, radiology review right axillary US, and follow-up plan Coordination of Care & Counseling Time: Greater than 50% of time spent with patient was for coordination of care (as documented) and [id number] counseling of patient and/or family. Dictated By: Rose Ohara MD DD/ [id number] Signed By: <Electronically signed by MD Rose Ohara> 04/13/23 [address] [facility] Work Phone: Summary Purpose Family History No Family History Records Found Relationship Condition Age at Onset Recorded Date/T gianfranco Not Specified Cerebrovascular accident (CVA) Unknown father Leukemia Unknown Advance Directives No Advanced Directives Records Found Advance Directive Response Recorded Date/ Time Advance Directives No April 11 7:55am Advance Directive Response Recorded Date/ Time Advance Directives No Gilma 5th, 201 9 6:55am Procedure Findings Note PROCEDURE DETAILS Postoperat nitesh Diagnosis: right arm melanoma Surgeon: Cedrick Berger Resident/Fellow/Other Electrical Instrument Technician: Ramiro Bhat Procedure: 1. RIGHT AXILLARY SENTINEL LYMPH NODE BIOPSY UPPER LIMB Anesthesia: No anesthesiologist associated with this case Estimated Blood Loss: 5 Findings: sentinel node Specimens(s) Collected: yes, Operative Report: Description of the procedure: The patient was brought to the operating room and placed supine on the table. Sequential compression devices were applied. General anesthesia was smoothly induced. Right axilla was prepped and draped in the usual fashion. Timeout was performed and preoperative antibiotics given. Incision was made, dissection was carried deeply into the lymphatic basin. Using the probe, sentinel lymph node was identified. A small lymph node was excised and had no activity ex vivo. This was sent to pathology. The sentinel node was deeper. I dissected more deeply. There was a single sentinel node that was excised. The wound was (more content not included)... Assessments N/A Reason for Referral Name Reason for referral NA NA Chief Complaint and Reason for Visit Chief Complaint Melanoma rt upper ar m. Reason for Visit Diabetes mellitus Encounter for antineoplastic immunotherapy Enlarged pituitary gland Melanoma Chief Complaint Melanoma rt upper ar m. Reason for Visit Enlarged pituitary g land Diabetes mellitus Encounter for antineoplastic immunotherapy Melanoma Chief Complaint I11.0, E11.22, I12.9 , N18.31 Melanoma rt upper arm. Reason for Visit Enlarged pituitary g land Diabetes mellitus Encounter for antineoplastic immunotherapy Melanoma Chief Complaint I11.0, E11.22, I12.9 , N18.31 Melanoma rt upper arm. Reason for Visit Enlarged pituitary g land Diabetes mellitus Encounter for antineoplastic immunotherapy Melanoma Enlarged pituitary gland Malignant melanoma of right upper limb, including shoulder Diabetes mellitus Additional Source Comments INFORMATION SOURCE (unrecogn ized section and content) DATE CREATED AUTHOR 10/24/2020 [employer] DATE CREATED AUTHOR AUTHOR'S ORGANIZ ATION 12/14/2020 [facility] DATE CREATED AUTHOR AUTHOR'S ORGANIZ ATION 10/07/2021 [facility] DATE CREATED AUTHOR AUTHOR'S ORGANIZ ATION 04/09/2022 [facility] DATE CREATED AUTHOR AUTHOR'S ORGANIZ ATION 03/07/2023 [facility] DATE CREATED AUTHOR AUTHOR'S ORGANIZ ATION 10/12/2023 [facility] DATE CREATED AUTHOR AUTHOR'S ORGANIZ ATION 11/10/2023 [facility] DATE CREATED AUTHOR AUTHOR'S ORGANIZ ATION 12/22/2023 [facility] DATE CREATED AUTHOR AUTHOR'S ORGANIZ ATION 12/24/2023 [facility] DATE CREATED AUTHOR AUTHOR'S ORGANIZ ATION 12/25/2023 [facility] DATE CREATED AUTHOR AUTHOR'S ORGANIZ ATION 12/27/2023 [facility] EPIC Care Teams (unrecognized sec tion and content) Team Status: Active Member Role Status Dates Wild Centeno DO Primary Care Provider Active Team Status: Inactive Member Role Status Dates Widl Centeno DO Primary Care Provider Active Start: December 13, 2023 End: December 13, 2023 ELVIRA Campos Attending Provider Active S tart: December 13, 2023 End: December 13, 2023 Team Status: Active Member Role Status Dates Wild Centeno DO Primary Care Provider Active Start: December 13, 2023 Mohan Mccartney MD Referring Provider Active Start: December 13, 2023 Rose Ohara MD Attending Provider Active Start: December 13, 2023 Team Status: Active Member Role Status Dates Wild Centeno DO Primary Care Provider Active Bang Nunez MD Attending Provider Active Mohan Mccartney MD Referring Provider Active Team Status: Active Member Role Status Dates Wild Centeno DO Primary Care Provider Active Mohan Mccartney MD Referring Provider Active Rose Ohara MD Attending Provider Active Team Status: Active Member Role Status Dates Wild Centeno DO Primary Care Provider Active Start: December 15, 2023 Mohan Mccartney MD Referring Provider Active Start: December 15, 2023 Rose Ohara MD Attending Provider Active Start: December 15, 2023 Team Status: Inactive Member Role Status Dates Wild Centeno DO Primary Care Provider Active Start: December 15, 2023 End: December 15, 2023 Rose Ohara MD Attending Provider Active Start: December 15, 2023 End: December 15, 2023 Paper Tester Relationship Specialty Start Date End Date Unallocated, [place] [place] [address] PCP - General Family Medicine 12/06/23 Paper Tester Relationship Specialty Start Date End Date Unallocated, [place] Provider [address] [place] [address] PCP - General [facility] Medicine 12/06/23 Paper Tester Relationship Specialty Start Date End Date Unallocated, [place] Provider [address] [place] [address] PCP - General [facility] Medicine 12/06/23 Paper Tester Relationship Specialty Start Date End Date Unallocated, [place] Provider [address] [place] [address] PCP - General [facility] Medicine 12/06/23 Paper Tester Relationship Specialty Start Date End Date Unallocated, [place] Provider [address] [place] [address] PCP - General [facility] Medicine 12/06/23 Paper Tester Relationship Specialty Start Date End Date Unallocated, [place] Provider [address] [place] [address] PCP - General [facility] Medicine 12/06/23 Paper Tester Relationship Specialty Start Date End Date Widl Centeno DO [address] [place] [address] PCP - [facility] Medicine 11/30/17 Paper Tester Relationship Specialty Start Date End Date Wild Centeno DO [address], [place] [address] PCP - [facility] Medicine 11/30/17 Goals (unrecognized section and content) Goals may be documented in a n alternate sectionGoals may be documented in an alternate sectionGoals may be documented in an alternate sectionGoals may be documented in an alternate sectionGoals may be documented in an alternate sectionGoals may be documented in an alternate sectionGoals may be documented in an alternate sectionNot on filedocumented as of this encounterNot on filedocumented as of this encounter Reason for Visit (unrecogniz ed section and content) Specialty Diagnoses / Procedures Referred By Pete t Referred To Contact Physical Therapy Diagnoses S/P total knee replacement using cement, left Procedures DC MANUAL THERAPY TQS 1/> REGIONS EACH 15 MINUTES PHYS/OCC THERAPY SS DC THERAPEUTIC PX 1/> AREAS EACH 15 MIN EXERCISES DC THER PX 1/> AREAS EACH 15 MIN NEUROMUSC REEDUCA Aly Higgins MD [address] [place] [address] Aman Yu, PT [address] [address] Referral ID Status Reason Start Date Expiration Date Visits Re quested Visits Authorized [id number] Closed 11/07/2023 10/19/2024 1 10 Referral ID Status Reason Start Date Expiration Date V isits Requested Visits Authorized [id number] Authorized 12/19/2023 10/02/2025 28 28 Reason Comments gout in big toe Reason Comments Med Refill FOR RECORDS PERTAINING TO PATIENTS WHO ARE OR HAVE BEEN ENROLLED IN A CHEMICAL DEPENDENCY/SUBSTANCEABUSE PROGRAM, SOME INFORMATION MAY BE OMITTED. This clinical summary was aggregated from multiple sources. Caution should be exercised in using it in the provision of clinical care. This summary normalizes information from multiple sources, and as a consequence, information in this document may materially change the coding, format and clinical context of patient data. In addition, data may be omitted in some cases. CLINICAL DECISIONS SHOULD BE BASED ON THE PRIMARY CLINICAL RECORDS. [employer] [facility]. provides no warranty or guarantee of the accuracy or completeness of information in this document.
[2023-12-30 10:11] LABS: Magnesium 1.8 mg/dL (1.8-2.4)
== END 2023-12-30 08:58 | disposition home or self-care (01) ==
LOC: LAB 09:01
PROVIDERS: PCP Family Medicine; Visit Provider Nurse Practitioner
DX: I13.0 Hypertensive heart and chronic kidney disease with heart failure and stage 1 through stage 4 chronic kidney disease, or unspecified chronic kidney disease (principal); I50.9 Heart failure, unspecified; R60.0 Localized edema; E11.22 Type 2 diabetes mellitus with diabetic chronic kidney disease; N18.31 Chronic kidney disease, stage 3a
CPT/HCPCS: 36415; 80048; 83735; 83880

== ENCOUNTER 2023-12-30 09:54 | Outpatient (REF) | payer MEDICARE, OTHER, SELFPAY ==
--- OUTSIDE RECORDS SUMMARY | 2023-12-30 10:11 | XMS_ITS | CCD ---
Author Name Unknown Address [address] [facility] [address] [place] [address] Organization [facility] Care Team Providers Care Metal Technician Name Role Phone Furdesing, Wild G Unavailable Unavailable Lionel, Taoist Unavailable Unavailable Furlong, DO Wild Primary Care Provider MD Bang Nunez Attending Provider Unavailable MD Mohan Mccartney Referring Provider Furlong, DO Wild Primary Care Provider MD Bang Nunez Attending Provider Unavailable MD Mohan Mccartney Referring Provider Furlong, DO Wild Primary Care Provider MD Mohan Mccartney Referring Provider MD Rose Ohara Attending Provider ALGHOTHANI, MOHAMAD Admitting Unavailable ALGHOTHANI, MOHAMAD Consulting [...] Referring Provider MD Rose Ohara Attending Provider [phone] Furlong, DO Wild Primary Care Provider MD Mohan Mccartney Referring Provider [phone] MD Rose Ohara Attending Provider RONALDO, ALY E Referring Unavailable RONALDO, ALY E Admitting Unavailable RONALDO, ALY E Attending Unavailable VALENTINE PICKERING Consulting Unavailable FURLONG, WILD G Primary Care Unavailable Aly Higgins MD Attending Unavail able Furlong, DO Wild Primary Care Provider PARTH [facility] Irma Attending Provider MD Mohan Mccartney Referring Provider MD Rose Ohara Attending Provider MD Mohan Mccartney Referring Provider MD Rose Ohara Attending Provider Unallocated, Noms Provider Primary Care Provider Furlong, Wild Primary Care Unavailable Mohan Mccartney Referring Unavailable Lev, Rose Attending Unavailable Lev, Rose Admitting Unavailable Furlong, Wild Primary Care Unavailable Bonita, Irma Attending Unavailable Bonita, Irma Admitting Unavailable Furlong DO, Wlid G Primary Care Provider [phone] PERRY MANUEL Attending Unavailable BONITA, IRMA Attending [...] 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 ([facility]) 1 Unit by miscellaneous route every 10 [...] 30 tablet 5 08/06/2023 Active Vit C-E-Zinc Xmp-Wxnfcf-Posage ([facility]) 50 mg-15 unit- 4.5 mg-2.5 mg Tablet,Chewable (7 sources) Start: 04-11-2019 take 1 tablet by mouth once daily Vit C-E-Zinc Ajz-Skzrhs-Assrno ([facility]) 50 mg-15 unit- 4.5 mg-2.5 mg Tablet,Chewable Active 1 TAB PO Daily April 11, 2019 8:39am Start: 04-11-2019 take 1 tablet by montrell once daily Vit C-E-Zinc Udb-Yvvmfd-Wgwtqc ([facility]) 50 mg-15 unit- 4.5 mg-2.5 mg Tablet,Chewable Active 1 TAB PO Daily April 10, 2019 11:00pm Start: 04-11-2019 take 1 tablet by montrell th once daily Vit C-E-Zinc Erz-Hzvusr-Omaacb [facility]) 50 mg-15 unit- 4.5 mg-2.5 [...] Onset: 12-23-2023 12-23-2023 Other aftercare (1 source) 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 Normal EF- LV function, no diastolic dysfunction, no significant valve issues. Very good. Regarding echo performed on 12/20/2023 Patient informed. She verbalized understanding. Normal [facility] Alanine aminotransferase [En zymatic activity/volume] in Serum or PlasmaOrdered By: Farhana Sotomayor on 12-13-2023 ALT [Catalytic activity/Vol] 12 U/L 7-52 [facility] Albumin [Mass/volume] in Ser um or Plasma by Bromocresol green (BCG) dye binding methoOrdered By: Farhana Sotomayor on 12-13-2023 Albumin BCG dye [Mass/Vol] 4.0 g/dL 3.5-5.7 [facility] Alkaline phosphatase [Enzyma tic activity/volume] in Serum or PlasmaOrdered By: Farhana Sotomayor on 12-13-2023 ALP [Catalytic activity/Vol] 55 U/L 34-104 [facility] Aspartate aminotransferase [ Enzymatic activity/volume] in Serum or PlasmaOrdered By: Farhana Sotomayor on 12-13-2023 AST [Catalytic activity/Vol] 11 U/L 13-39 [facility] B-Type Natriuretic Peptideon 12-13-2023 Natriuretic peptide B (Bld) [Mass/Vol] 70.0 pg/mL Normal 5-100 [facility] Comment on above: Order Comment: Kaylee ya order for this patient for CBC and CMP ordered under [facility] Acct. please forward a copy of report to Irma Mesa N.P. patient fasting 12 hrs Result Comment: PERF ORMED BY: [place] [address] PATHOLOGIST [employer] ASSEMBLER SHEBA RICO M.D. Performed By: #### M G, BNP #### [address] Basophils Auto (Bld) [#/Vol] Ordered By: Farhana Sotomayor on 12-13-2023 Basophils (Bld) [#/Vol] 0.1 10*3/uL 0.0-0.2 [facility] Basophils/100 WBC Auto (Bld) Ordered By: Farhana Sotomayor on 12-13-2023 Basophils/100 WBC (Bld) 1.2 % . [facility] Bilirubin.total [Mass/volume ] in Serum or PlasmaOrdered By: Farhana Sotomayor on 12-13-2023 Bilirubin [Mass/Vol] 0.8 mg/dL 0.3-1.[address] [facility] [address] abdomen pelvis w conon CT abdomen pelvis w con [facility] [place] [address] CT Scan Report Signed Patient: Tosha Mcneal MR#: [id number] : 1950 Acct:[id number] Age/Sex: 73 / F ADM Date: 12/13/23 Loc: Room: Type: [facility] Attending Dr: Rose Ohara MD Copies to: MD Farhana Gutierrez, VINCE Ordering Provider: Farhana Sotomayor APRN Date of Service: 12/13/23 CT/CT abdomen pelvis w con: surveillance melanoma ([id number]) CT/CT chest w con: surveillance melanoma CT [...] Omid Echevarria M.D.12/13/2023 2:39 PM Dictation Location: [place] [address] Transcribed By: [facility] 12/13/23 1439 Dictated By: Omid Echevarria DO 12/13/23 1430 Signed By: 12/13/23 1439 Normal [facility] Calcium [Mass/volume] in Ser um or PlasmaOrdered By: Farhana Sotomayor on 12-13-2023 Calcium [Mass/Vol] 9.3 mg/dL 8.6-10.3 [facility] Carbon dioxide, total [Moles /volume] in Serum or PlasmaOrdered By: Farhana Sotomayor on 12-13-2023 CO2 [Moles/Vol] 26.9 mmol/L 21.0-31.0 [facility] Chloride [Moles/volume] in S marlena or PlasmaOrdered By: Farhana Sotomayor on 12-13-2023 Chloride [Moles/Vol] 103 mmol/L 98-107 [facility] Complete Blood Count Auto Di ffon 12-13-2023 Basophils (Bld) [#/Vol] 0.1 10*3/uL Normal 0.0-0.2 [facility] Comment on above: Result Comment: PERF ORMED BY: [place] [address] PATHOLOGIST [employer] ASSEMBLER SHEBA RICO M.D. Performed By: #### C BC #### [address] Basophils/100 WBC (Bld) 1.2 % Normal . [facility] Comment on above: Performed By: #### C BC #### [address] Eosinophils (Bld) [#/Vol] 0.2 10*3/uL Normal 0.0-0.45 [facility] Comment on above: Performed By: #### C BC #### [address] Eosinophils/100 WBC (Bld) 2.4 % Normal . [facility] Comment on above: Performed By: #### C BC #### [address] Erythrocyte distribution width (RBC) [Ratio] 16.0 % High 11.9-15.3 [facility] Comment on above: Performed By: #### C BC #### [address] Hematocrit (Bld) [Volume fraction] 35.5 % Normal 34.0-46.4 [facility] Comment on above: Performed By: #### C BC #### [address] Hemoglobin (Bld) [Mass/Vol] 11.5 g/dL Low 11.8-15.4 [facility] Comment on above: Performed By: #### C BC #### [facility] [address] [place] [address] [place] Lymphocytes (Bld) [#/Vol] 1.9 10*3/uL Normal 1.00-4.8 [facility] Comment on above: Performed By: #### C BC #### [facility] [address] Lymphocytes/100 WBC (Bld) 25.0 % Normal . [facility] Comment on above: Performed By: #### C BC #### [facility] [address] MCH (RBC) [Entitic mass] 28.3 pg Normal 24.7-34.3 [facility] Comment on above: Performed By: #### C BC #### [address] MCV (RBC) [Entitic vol] 87.2 fL Normal 80-100 [facility] Comment on above: Performed By: #### C BC #### [address] Mean Corpuscular HGB Conc 32.5 g/dL Normal 32.0-35.0 [facility] Comment on above: Performed By: #### C BC #### [address] Monocytes (Bld) [#/Vol] 0.6 10*3/uL Normal 0.0-0.8 [facility] Comment on above: Performed By: #### C BC #### [address] Monocytes/100 WBC (Bld) 8.3 % Normal . [facility] Comment on above: Performed By: #### C BC #### [address] Neutrophils (Bld) [#/Vol] 4.8 10*3/uL Normal 1.8-7.7 [facility] Comment on above: Performed By: #### C BC #### [address] Neutrophils/100 WBC (Bld) 63.1 % Normal . [facility] Comment on above: Performed By: #### C BC #### [facility] [address] NRBC% 0.0 /100{WBC} Normal 0-0.5 [facility] Comment on above: Performed By: #### C BC #### [address] Platelet mean volume (Bld) [Entitic vol] 7.5 fL Normal 6.3-10.7 [facility] Comment on above: Performed By: #### C BC #### [address] Platelets (Bld) [#/Vol] 220 10*3/uL Normal 150-450 [facility] Comment on above: Performed By: #### C BC #### [address] RBC (Bld) [#/Vol] 4.07 10*6/uL Normal 3.60-5.00 [facility] Comment on above: Performed By: #### C BC #### [address] WBC (Bld) [#/Vol] 7.6 10*3/uL Normal 3.8-11.6 [facility] Comment on above: Performed By: #### C BC #### [address] Comprehensive Metabolic Pane [place] 12-13-2023 Albumin [Mass/Vol] 4.0 g/dL Normal 3.5-5.7 [facility] Comment on above: Order Comment: stat for CT Bun/creat patient has a duplicate for CMP and cbc for Irma Mesa please send copy of report to her also. orders scanned in under Acct. [id number] Patient fasting since 0830 pm 0n 12/12/23 Performed By: #### C MP, LDH #### [address] [place] [address] [facility] Albumin/Globulin [Mass ratio] 1.5 {ratio} Normal [facility] Comment on above: Order Comment: stat for CT Bun/creat patient has a duplicate for CMP and cbc for Irma Blackburns please send copy of report to her also. orders scanned in under Acct. [id number] Patient fasting since 0830 pm 0n 12/12/23 Performed By: #### C MP, LDH #### [facility] [address] [place] [id number] [facility] ALP [Catalytic activity/Vol] 55 U/L Normal 34-104 [facility] Comment on above: Order Comment: stat for CT Bun/creat patient has a duplicate for CMP and cbc for Irma Blackburns please send copy of report to her also. orders scanned in under Acct. [id number] Patient fasting since 0830 pm 0n 12/12/23 Performed By: #### C MP, LDH #### [facility] [address] [place] [id number] [facility] ALT [Catalytic activity/Vol] 12 U/L Normal 7-52 [facility] Comment on above: Order Comment: stat for CT Bun/creat patient has a duplicate for CMP and cbc for Irma Blackburns please send copy of report to her also. orders scanned in under Acct. [id number] Patient fasting since 0830 pm 0n 12/12/23 Performed By: #### C MP, LDH #### [place] [id number] [facility] Anion gap [Moles/Vol] 14.4 mmol/L Normal 6.0-15.0 [facility] Comment on above: Order Comment: stat for CT Bun/creat patient has a duplicate for CMP and cbc for Irma Blackburns please send copy of report to her also. orders scanned in under Acct. [id number] Patient fasting since 0830 pm 0n 24 Performed By: #### C MP, LDH #### [facility] [address] [place] [address] [facility] AST [Catalytic activity/Vol] 11 U/L Low 13-39 [facility] Comment on above: Order Comment: stat for CT Bun/creat patient has a duplicate for CMP and cbc for Irma Bonita please send copy of report to her also. orders scanned in under Acct. [id number] Patient fasting since 0830 pm 0n 12/12/23 Performed By: #### C MP, LDH #### [facility] [address] [place] [address] [facility] Bilirubin [Mass/Vol] 0.8 mg/dL Normal 0.3-1.0 [facility] Comment on above: Order Comment: stat for CT Bun/creat patient has a duplicate for CMP and cbc for Irma Bonita please send copy of report to her also. orders scanned in under Acct. [id number] Patient fasting since 0830 pm 0n 12/12/23 Performed By: #### C MP, LDH #### [facility] [address] [place] [address] [place] Calcium [Mass/Vol] 9.3 mg/dL Normal 8.6-10.3 [facility] Comment on above: Order Comment: stat for CT Bun/creat patient has a duplicate for CMP and cbc for Irma Bonita please send copy of report to her also. orders scanned in under Acct. [id number] Patient fasting since 0830 pm 0n 12/12/23 Performed By: #### C MP, LDH #### [facility] [address] [place] [address] [place] Chloride [Moles/Vol] 103 mmol/L Normal 98-107 [facility] Comment on above: Order Comment: stat for CT Bun/creat patient has a duplicate for CMP and cbc for Irma Bonita please send copy of report to her also. orders scanned in under Acct. [id number] Patient fasting since 0830 pm 0n 12/12/23 Performed By: #### C MP, LDH #### [facility] [address] [place] [address] [place] CO2 [Moles/Vol] 26.9 mmol/L Normal 21.0-31.0 [facility] Comment on above: Order Comment: stat for CT Bun/creat patient has a duplicate for CMP and cbc for Irma Bonita please send copy of report to her also. orders scanned in under Acct. [id number] Patient fasting since 0830 pm 0n 12/12/23 Performed By: #### C MP, LDH #### [facility] [address] [place] [id number] [facility] Creatinine [Mass/Vol] 1.05 mg/dL Normal 0.60-1.20 [facility] Comment on above: Order Comment: stat for CT Bun/creat patient has a duplicate for CMP and cbc for Irma Blackburns please send copy of report to her also. orders scanned in under Acct. [id number] Patient fasting since 0830 pm 0n 12/12/23 Performed By: #### C MP, LDH #### [facility] [address] [place] [address] Creatinine Clr Calc Pharmacy 51.93 [facility] Comment on above: Order Comment: stat for CT Bun/creat patient has a duplicate for CMP and cbc for Irma Blackburns please send copy of report to her also. orders scanned in under Acct. [id number] Patient fasting since 0830 pm 0n 12/12/23 Performed By: #### C MP, LDH #### [facility] [address] [place] [id number] [facility] GFR/1.73 sq M.predicted MDRD (S/P/Bld) [Vol rate/Area] 55.755 mL/min/{1.73_m2} [facility] Comment on above: Order Comment: stat for CT Bun/creat patient has a duplicate for CMP and cbc for Irma Blackburns please send copy of report to her also. orders scanned in under Acct. [id number] Patient fasting since 0830 pm 0n 12/12/23 Performed By: #### C MP, LDH #### [facility] [address] [place] [id number] [facility] Globulin (S) [Mass/Vol] 2.7 g/dL [facility] Comment on above: Order Comment: stat for CT Bun/creat patient has a duplicate for CMP and cbc for Irma Blackburns please send copy of report to her also. orders scanned in under Acct. [id number] Patient fasting since 0830 pm 0n 12/12/23 Performed By: #### C MP, LDH #### [facility] [address] [place] [id number] [facility] Glucose [Mass/Vol] 135 mg/dL High 70-100 [facility] Comment on above: Order Comment: stat for CT Bun/creat patient has a duplicate for CMP and cbc for Irma Bonita please send copy of report to her also. orders scanned in under Acct. [id number] Patient fasting since 0830 pm 0n 12/12/23 Result Comment: [place] Glucose Reference Range is dependent on time and content of last meal. Glucose of more than 200 mg/dL in a nonstressed, ambulatory subject supports the diagnosis of Diabetes Mellitus. ADA recommended reference range Performed By: #### C MP, LDH #### [facility] [address] [place] [id number] [place] Potassium [Moles/Vol] 5.3 mmol/L High 3.5-5.1 [facility] Comment on above: Order Comment: stat for CT Bun/creat patient has a duplicate for CMP and cbc for Irma Bonita please send copy of report to her also. orders scanned in under Acct. [id number] Patient fasting since 0830 pm 0n 12/12/23 Performed By: #### C MP, LDH #### [facility] [address] [place] [id number] [facility] Protein [Mass/Vol] 6.7 g/dL Normal 6.4-8.9 [facility] Comment on above: Order Comment: stat for CT Bun/creat patient has a duplicate for CMP and cbc for Irma Bonita please send copy of report to her also. orders scanned in under Acct. [id number] Patient fasting since 0830 pm 0n 12/12/23 Performed By: #### C MP, LDH #### [facility] [address] [place] [id number] [place] Sodium [Moles/Vol] 139 mmol/L Normal 136-145 [facility] Comment on above: Order Comment: stat for CT Bun/creat patient has a duplicate for CMP and cbc for Irma Bonita please send copy of report to her also. orders scanned in under Acct. [id number] Patient fasting since 0830 pm 0n 12/12/23 Performed By: #### C MP, LDH #### [facility] [address] [place] [id number] [place] Urea nitrogen [Mass/Vol] 27 mg/dL High 7-25 [facility] Comment on above: Order Comment: stat for CT Bun/creat patient has a duplicate for CMP and cbc for Irma Mesa please send copy of report to her also. orders scanned in under Acct. [id number] Patient fasting since 0830 pm 0n 12/12/23 Performed By: #### C MP, LDH #### [facility] [address] [place] [id number] [facility] Creatinine [Mass/volume] in Serum or PlasmaOrdered By: Farhana Sotomayor on 12-13-2023 Creatinine [Mass/Vol] 1.05 mg/dL 0.60-1.20 [facility] Eosinophils Auto (Bld) [#/Vo l]Ordered By: Farhana Sotomayor on 12-13-2023 Eosinophils (Bld) [#/Vol] 0.2 10*3/uL 0.0-0.45 [facility] Eosinophils/100 WBC Auto (Bl d)Ordered By: Farhana Sotomayor on 12-13-2023 Eosinophils/100 WBC (Bld) 2.4 % . [facility] Erythrocyte distribution wid th Auto (RBC) [Ratio]Ordered By: Farhana Sotomayor on 12-13-2023 Erythrocyte distribution width (RBC) [Ratio] 16.0 % 11.9-15.3 [facility] Globulin Calc (S) [Mass/Vol] Ordered By: Farhana Sotomayor on 12-13-2023 Globulin (S) [Mass/Vol] 2.7 g/dL [facility] Glucose [Mass/volume] in Ser um or PlasmaOrdered By: Farhana Sotomayor on 12-13-2023 Glucose [Mass/Vol] 135 mg/dL 70-100 [facility] Comment on above: ADA recommended refe rence rangeRandom Glucose Reference Range is dependent on time and content of last meal. Glucose of more than 200 mg/dL in a nonstressed, ambulatory subject supports the diagnosis of Diabetes Mellitus. Hematocrit Auto (Bld) [Volum e fraction]Ordered By: Farhana Sotomayor on 12-13-2023 Hematocrit (Bld) [Volume fraction] 35.5 % 34.0-46.4 [facility] Hemoglobin [Mass/volume] in BloodOrdered By: Farhana Sotomayor on 12-13-2023 Hemoglobin (Bld) [Mass/Vol] 11.5 g/dL 11.8-15.4 [facility] LDH Lactate Dehydrogenaseon 12-13-2023 LDH Lactate Dehydrogenase 118 U/L Low 140-271 [facility] Comment on above: Order Comment: stat for CT Bun/creat patient has a duplicate for CMP and cbc for Irma Mesa please send copy of report to her also. orders scanned in under Acct. [id number] Patient fasting since 0830 pm 0n 12/12/23 Result Comment: PERF ORMED BY: [facility] [address] [place] [address] PATHOLOGIST [employer] ASSEMBLER SHEBA RICO M.D. Performed By: #### C MP, LDH ####[facility] [id number] [place] [address] [facility] Lactate dehydrogenase [Enzym atic activity/volume] in Serum or Plasma by Lactate to pyOrdered By: Farhana Sotomayor on 12-13-2023 LDH Lactate to pyruvate reaction [Catalytic activity/Vol] 118 U/L 140-271 [facility] Leukocytes [#/volume] correc jin for nucleated erythrocytes in Blood by Automated counOrdered By: Farhana Sotomayor on 12-13-2023 WBC corrected for nucl RBC Auto (Bld) [#/Vol] 7.6 10*3/uL 3.8-11.6 [facility] Lymphocytes Auto (Bld) [#/Vo l]Ordered By: Farhana Sotomayor on 12-13-2023 Lymphocytes (Bld) [#/Vol] 1.9 10*3/uL 1.00-4.8 [facility] Lymphocytes/100 WBC Auto (Bl d)Ordered By: Farhana Sotomayor on 12-13-2023 Lymphocytes/100 WBC (Bld) 25.0 % . [facility] MCH Auto (RBC) [Entitic mass ]Ordered By: Farhana Sotomayor on 12-13-2023 MCH (RBC) [Entitic mass] 28.3 pg 24.7-34.3 [facility] MCHC Auto (RBC) [Mass/Vol]Or dered By: Farhana Sotomayor on 12-13-2023 MCHC (RBC) [Mass/Vol] 32.5 g/dL 32.0-35.0 [facility] MCV Auto (RBC) [Entitic vol] Ordered By: Farhana Sotomayor on 12-13-2023 MCV (RBC) [Entitic vol] 87.2 fL 80-100 [facility] Magnesiumon 12-13-2023 Magnesium [Mass/Vol] 1.5 mg/dL Low 1.9-2.7 [facility] Comment on above: Order Comment: Kaylee ya order for this patient for CBC and CMP ordered under [facility] Acct. please forward a copy of report to Irma Mesa N.P. patient fasting 12 hrs Result Comment: PERF ORMED BY: [place] [address] PATHOLOGIST [employer]ER SHEBA RICO M.D. Performed By: #### M G, BNP #### [address] Magnesium [Mass/volume] in S marlena or PlasmaOrdered By: Irma Mesa on 12-13-2023 Magnesium [Mass/Vol] 1.5 mg/dL 1.9-2.7 [facility] Monocytes Auto (Bld) [#/Vol] Ordered By: Farhana Sotomayor on 12-13-2023 Monocytes (Bld) [#/Vol] 0.6 10*3/uL 0.0-0.8 [facility] Monocytes/100 WBC Auto (Bld) Ordered By: Farhana Sotomayor on 12-13-2023 Monocytes/100 WBC (Bld) 8.3 % . [facility] Natriuretic peptide B [Mass/ Vol]Ordered By: Irma Mesa on 12-13-2023 Natriuretic peptide B (Bld) [Mass/Vol] 70.0 pg/mL 5-100 [facility] Neutrophils Auto (Bld) [#/Vo l]Ordered By: Farhana Sotomayor on 12-13-2023 Neutrophils (Bld) [#/Vol] 4.8 10*3/uL 1.8-7.7 [facility] Neutrophils/100 WBC Auto (Bl d)Ordered By: Farhana Sotomayor on 12-13-2023 Neutrophils/100 WBC (Bld) 63.1 % . [facility] No Panel InformationOrdered By: Farhana Sotomayor on 12-13-2023 Estimated GFR (CKD-EPI) 55.755 mL/Min [facility] Creatinine Clearance (Chem 51.93 [facility] Nucleated erythrocytes [Pres ence] in Blood by Automated countOrdered By: Farhana Sotomayor on 12-13-2023 Nucleated RBC Auto Ql (Bld) 0.0 /100{WBC} 0-0.5 [facility] Platelet mean volume Auto (B ld) [Entitic vol]Ordered By: Farhana Sotomayor on 12-13-2023 Platelet mean volume (Bld) [Entitic vol] 7.5 fL 6.3-10.7 [facility] Platelets Auto (Bld) [#/Vol] Ordered By: Farhana Sotomayor on 12-13-2023 Platelets (Bld) [#/Vol] 220 10*3/uL 150-450 [facility] Potassium [Moles/volume] in Serum or PlasmaOrdered By: Farhana Sotomayor on 12-13-2023 Potassium [Moles/Vol] 5.3 mmol/L 3.5-5.1 [facility] Protein [Mass/volume] in Ser um or PlasmaOrdered By: Farhana Sotomayor on 12-13-2023 Protein [Mass/Vol] 6.7 g/dL 6.4-8.9 [facility] RBC Auto (Bld) [#/Vol]Ordere d By: Farhana Sotomayor on 12-13-2023 RBC (Bld) [#/Vol] 4.07 10*6/uL 3.60-5.00 [facility] Serum or plasma albumin/glob ulin mass ratioOrdered By: Farhana Sotomayor on 12-13-2023 Albumin/Globulin [Mass ratio] 1.5 {ratio} [facility] Serum or plasma anion gap de terminationOrdered By: Farhana Sotomayor on 12-13-2023 Anion gap [Moles/Vol] 14.4 mmol/L 6.0-15.0 [facility] Sodium [Moles/volume] in Ser um or PlasmaOrdered By: Farhana Sotomayor on 12-13-2023 Sodium [Moles/Vol] 139 mmol/L 136-145 [facility] US extremity nonvascularon 0 12-13-2023 US extremity nonvascular [facility] [place] [address] Ultrasound Report Signed Patient: Tosha Mcneal MR#: [id number] : 1950 Acct:[id number] Age/Sex: 73 / F ADM Date: 12/13/23 Loc: XT Room: Type: [facility] RCR Attending Dr: Rose Ohara MD [...] Francesco Boggs M.D.12/13/2023 2:06 PM Dictation Location: [place] [address] Tech: Miri Jaramillo Transcribed By: SRUTHI 12/13/23 140 Dictated By: Francesco Boggs II, MD 12/13/23 1402 Signed By: 12/13/23 140 Normal [facility] Urea nitrogen [Mass/volume] in Serum or PlasmaOrdered By: Farhana Sotomayor on 12-13-2023 Urea nitrogen [Mass/Vol] 27 mg/dL 7 [facility] WBC Auto (Bld) [#/Vol]Ordere d By: Farhana Sotomayor on 12-13-2023 WBC (Bld) [#/Vol] 7.6 10*3/uL 3.8-11.6 [facility] 37on 12-02-2023 37 Stop Amlodipine/Norv asc- this [...] pillows than normal or in recliner. Normal [facility] Office Visiton 12-02-2023 Follow-up visit [id number] Renee Mcneal 1950 F Date Provider Department Center 12/02/2023 [facility] Family History Problem Relation Age of Onset Coronary artery disease Father Heart attack Father Family Status - Relation Status Age at Father Level of Service:31413 CT OFFICE/OUTPATIENT ESTABLISHED MOD MDM 30 MIN Normal [facility] Operative Reporton 4 Operative Report Indication for Surge ry Wound dehiscence left total knee Preoperative Diagnosis Wound dehiscence left total knee Postoperative Diagnosis Wound dehiscence left total knee Operation Debridement Lower Extremity, INCISION AND DRAINAGE LEFT KNEE, SECONDARY CLOSURE OF WOUND DEHISENCE, PREVENNA PLACMENT, Left, Knee Surgeon(s) Ronaldo JUAREZ, Aly Guzman (Surgeon - Primary) Placement Coordinator Miguel HART, Dee Dee Hays (Rubber Compounder Mixer) Anesthesia General Mile JUAREZ, Hank Richard (Ground Operations Supervisor) Emmanuelle SHIPMAN, Joleen Maldonado (Provider) Estimated Blood [...] stable condition. Will be discharged home with [place] and Keflex 500 mg p.o. 3 times daily x 7 days. Return the office in 1 week for wound check. Tourniquet Time NA Sponge/Needle Count correct Fluid Count as per chart Catheters, Drains, Tubes Prevena Electronically signed by Aly Higgins MD 11/09/23 17:29 EST Normal [facility] POC Glucose Randomon 024 Glucose [Mass/Vol] 118 mg/dL High 70-99 [facility] Comment on above: Performed By: #### C D:[id number] #### [facility] [address] [place] [address] Glucose [Mass/Vol] 137 mg/dL High 70-99 [facility] Comment on above: Performed By: #### C [id number] #### [address] [address] Glucose [Mass/Vol] 138 mg/dL High 70-99 [facility] Comment on above: Performed By: #### C D:[id number] #### [address] [address] Hgb/Hcton 10-04-2023 Hematocrit (Bld) [Volume fraction] 35.2 % Low 36.3-47.[address] [facility] Comment on above: Performed By: #### H H #### [address] [place] [address] Supervisor Gear Repair: Alexey Rob MD Hemoglobin (Bld) [Mass/Vol] 11.5 g/dL Low 11.9-15.[address] [facility] Comment on above: Performed By: #### H H #### [address] [place] [address] Supervisor Gear Repair: Alexey Rob MD OPERATIVE REPORTon 3 OPERATIVE REPORT [address] [address] OPERATIVE REPORT PATIENT NAME: TOSHA MCNEAL : 1950 MED REC NO: [id number] ROOM: [id number] ACCOUNT NO: [id number] ADMIT DATE: 10/03/2023 PROVIDER: Aly Higgins DATE [...] to go with a 32-mm patellar dome. [place] holes were placed. Knee was then cleansed [...] layer was then closed with #1 Vicryl [id number] sutures over two Hemovac drains. Vancomycin powder [...] a stable condition. ALY HIGGINS PH/[id number]_T Doc#: [id number] CC: Normal [facility] MRSA, DNA, Nasalon 3 MRSA, DNA, Nasal Negative Normal NEG [facility] Comment on above: Result Comment: NEGA TIVE: MRSA DNA not detected by nucleic acid amplification. Results should be used as an adjunct to nosocomial control efforts to identify patients needing enhanced precautions. The test is not intended to identify patients with staphylococcal infections. Results should not be used to guide or monitor treatment for MRSA infections. Performed By: #### M RSANO #### [facility] [address] [place], [place] [id number] Supervisor Gear Repair: Jose Miguel Davis MD [facility] [address] [place] [address] [place] [address] Supervisor Gear Repair: Alexey Rob MD Basic Metabolic Profon 09-08 Anion gap [Moles/Vol] 12 mmol/L Normal 9-17 [facility] Comment on above: Performed By: #### B SHANTE, CDP #### [facility] [address] [place] [address] Supervisor Gear Repair: Alexey Rob MD BUN/CRE Ratio 35 High 9-[address] [facility] Comment on above: Performed By: #### B MP, CDP #### [facility] [address] [place] [address] Supervisor Gear Repair: Alexey Rob MD Calcium [Mass/Vol] 9.9 mg/dL Normal 8.6-10.[address] [facility] Comment on above: Performed By: #### B SHANTE, CDP #### [facility] [address] [place], [place] [phone] Supervisor Gear Repair: Alexey Rob MD Chloride [Moles/Vol] 99 mmol/L Normal 98-107 [facility] Comment on above: Performed By: #### B MP, CDP #### [facility] [address] [place], [place] [phone] Supervisor Gear Repair: Alexey Rob MD CO2 [Moles/Vol] 27 mmol/L Normal 20-31 [facility] Comment on above: Performed By: #### B SHANTE, CDP #### [facility] [address] [place], [place] [phone] Supervisor Gear Repair: Alexey Rob MD Creatinine [Mass/Vol] 1.0 mg/dL High 0.5-0.9 [facility] Comment on above: Performed By: #### B SHANTE, CDP #### [facility] [address] [place] [address] Supervisor Gear Repair: Alexey Rob MD GFR/1.73 sq M.predicted among non-blacks MDRD (S/P/Bld) [Vol rate/Area] 59 mL/min/{1.73_m2} Low >[address] [facility] Comment on above: Result Comment: These results [...] Performed By: #### B SHANTE, CDP #### [facility] [address] [place] [address] Supervisor Gear Repair: Alexey Rob MD Glucose [Mass/Vol] 126 mg/dL High 70-[address] [facility] Comment on above: Performed By: #### B SHANTE, CDP #### [facility] [address] [place], [place] [phone] Supervisor Gear Repair: Alexey Rob MD Potassium [Moles/Vol] 4.9 mmol/L Normal 3.7-5.3 [facility] Comment on above: Performed By: #### B SHANTE, CDP #### [facility] [address] [place], [place] [phone] Supervisor Gear Repair: Alexey Rob MD Sodium [Moles/Vol] 138 mmol/L Normal 135-[address] [facility] Comment on above: Performed By: #### B SHANTE, CDP #### [facility] [address] [place] [address] [address] [place], [place] [phone] Supervisor Gear Repair: Alexey Rob MD Urea nitrogen [Mass/Vol] 35 mg/dL High 8-[address] [facility] Comment on above: Performed By: #### B SHANTE, CDP #### [facility] [address] [place] [address] [address]. [place], [place] [phone] Supervisor Gear Repair: Alexey Rob MD CBC with Diffon 09-08-2023 Abs. Basophil 0.07 k/uL Normal 0.00-0.[address] [facility] Comment on above: Performed By: #### B SHANTE, CDP #### [address] [place], [place] [phone] Supervisor Gear Repair: Alexey Rob MD Abs.Imm.Granulocyte 0.04 k/uL Normal 0.00-0.[address] [facility] Comment on above: Performed By: #### B SHANTE, CDP #### [facility] [address] [place] [address] Dr. [place], [place] 8343483 Supervisor Gear Repair: Alexey Rob MD Abs.Neutrophil (Seg) 5.10 k/uL Normal 1.50-8.10 [facility] Comment on above: Performed By: #### B SHANTE, CDP #### [facility] [address] [place] [address] [address]. [place], [place] [phone] Supervisor Gear Repair: Alexey Rob MD Basophils/100 WBC (Bld) 1 % Normal 0-[address] [facility] Comment on above: Performed By: #### B SHANTE, CDP #### [facility] [address] [place] [address] [address]. [place], [place] [phone] Supervisor Gear Repair: Alexey Rob MD Eosinophils (Bld) [#/Vol] 0.13 10*3/uL Normal 0.00-0.[address] [facility] Comment on above: Performed By: #### B SHANTE, CDP #### [facility] [address] [place] [address] [address], [place] [phone] Supervisor Gear Repair: Alexey Rob MD Eosinophils/100 WBC (Bld) 2 % Normal 1-[address] [facility] Comment on above: Performed By: #### B SHANTE, CDP #### [address] [place], [place] [phone] Supervisor Gear Repair: Alexey Rob MD Erythrocyte distribution width (RBC) [Ratio] 13.6 % Normal 11.8-14.[address] [facility] Comment on above: Performed By: #### B SHANTE, CDP #### [address] [place], [place] [address]3 Supervisor Gear Repair: Alexey Rob MD Hematocrit (Bld) [Volume fraction] 44.2 % Normal 36.3-47.[address] [facility] Comment on above: Performed By: #### B SHANTE, CDP #### [address] [place], [place] [phone] Supervisor Gear Repair: Alexey Rob MD Hemoglobin (Bld) [Mass/Vol] 14.1 g/dL Normal 11.9-15.[address] [facility] Comment on above: Performed By: #### B SHANTE, CDP #### [address] [place], [place] [phone] Supervisor Gear Repair: Alexey Rob MD Immature granulocytes/100 WBC (Bld) 1 % High [address] [facility] Comment on above: Performed By: #### B MP, CDP #### [address] [place] [address] Supervisor Gear Repair: Alexey Rob MD Lymphocytes (Bld) [#/Vol] 1.87 10*3/uL Normal 1.10-3.[address] [facility] Comment on above: Performed By: #### B MP, CDP #### [address] [place] [address] Supervisor Gear Repair: Alexey Rob MD Lymphocytes/100 WBC (Bld) 24 % Normal 24-[address] [facility] Comment on above: Performed By: #### B MP, CDP #### [address] [place], [facility] Supervisor Gear Repair: Alexey Rob MD MCH (RBC) [Entitic mass] 29.5 pg Normal 25.2-33.[address] [facility] Comment on above: Performed By: #### B MP, CDP #### [address] [place], [facility] Supervisor Gear Repair: Alexey Rob MD MCHC (RBC) [Mass/Vol] 31.9 g/dL Normal 28.4-34.8 [facility] Comment on above: Performed By: #### B SHANTE, CDP #### [address] [place], [facility] Supervisor Gear Repair: Alexey Rob MD MCV (RBC) [Entitic vol] 92.5 fL Normal 82.6-102.[address] [facility] Comment on above: Performed By: #### B SHANTE, CDP #### [address] [place] [address] Supervisor Gear Repair: Alexey Rob MD Monocytes (Bld) [#/Vol] 0.75 10*3/uL Normal 0.10-1.[address] [facility] Comment on above: Performed By: #### B MP, CDP #### [facility] [address] [place], [place] [phone] Supervisor Gear Repair: Alexey Rob MD Monocytes/100 WBC (Bld) 9 % Normal 3-[address] [facility] Comment on above: Performed By: #### B MP, CDP #### [facility] [address] [place], [place] [phone] Supervisor Gear Repair: Alexey Rob MD Neutrophil (Seg) 63 % Normal 36-65 [facility] Comment on above: Performed By: #### B MP, CDP #### [facility] [address] [place], [place] 2486383 Supervisor Gear Repair: Alexey Rob MD NRBC Automated 0.0 per [address] WBC Normal 0.[address] [facility] Comment on above: Performed By: #### B MP, CDP #### [address] [place], [place] [address]83 Supervisor Gear Repair: Alexey Rob MD Platelet mean volume (Bld) [Entitic vol] 9.6 fL Normal 8.1-13.[address] [facility] Comment on above: Performed By: #### B MP, CDP #### [address] [place], [place] [phone] Supervisor Gear Repair: Alexey Rob MD Platelets (Bld) [#/Vol] 205 10*3/uL Normal 138-[address] [facility] Comment on above: Performed By: #### B MP, CDP #### [facility] [address] [place] [address] Dr[place], [place] [phone] Supervisor Gear Repair: Alexey Rob MD RBC (Bld) [#/Vol] 4.78 10*6/uL Normal 3.95-5.[address] [facility] Comment on above: Performed By: #### B MP, CDP #### [facility] [address] [place] [address] Supervisor Gear Repair: Alexey Rob MD WBC (Bld) [#/Vol] 8.0 10*3/uL Normal 3.5-11.[address] [facility] Comment on above: Performed By: #### B MP, CDP #### [facility] [address] [place] [address] Supervisor Gear Repair: Alexey Rob MD MRSA, DNA, Nasalon Specimen Description .NASAL SWAB Normal [facility] Comment on above: Performed By: #### M RSANO #### [facility] [address] [place], [place] [id number] Supervisor Gear Repair: Jose Miguel Davis MD [facility] [address] [place] [address] [place] [address] Supervisor Gear Repair: Alexey Rob MD Type + Screenon 09-08-2023 Type + Screen Sample Expiration 10/06/2023,2359 Arm Band Number [id number] ABO/Rh(D) A POSITIVE Antibody Screen NEGATIVE Normal [facility] Comment on above: Performed By: #### T YS #### [facility] [address] [place] [address] Supervisor Gear Repair: Alexey Rob MD Office Visiton 08-29-2023 Follow-up visit [id number] ColleenReneee Ilan 1950 F Date Provider Department Center 08/29/2023 [id number] MANUEL CARD [facility] Family History Problem Relation Age of Onset Coronary artery disease Father Heart attack Father Family Status - Relation Status Age at Father Level of Service:67446 CT OFFICE/OUTPATIENT ESTABLISHED MOD MDM 30-39 MIN Normal [facility] Alanine aminotransferase [En zymatic activity/volume] in Serum or PlasmaOrdered By: Rose Ohara on 08-09-2023 ALT [Catalytic activity/Vol] 13 U/L 7-52 [facility] Albumin [Mass/volume] in Ser um or Plasma by Bromocresol green (BCG) dye binding methoOrdered By: Rose Ohara on 08-09-2023 Albumin BCG dye [Mass/Vol] 4.5 g/dL 3.5-5.7 [facility] Alkaline phosphatase [Enzyma tic activity/volume] in Serum or PlasmaOrdered By: Rose Ohara on 08-09-2023 ALP [Catalytic activity/Vol] 48 U/L 34-104 [facility] Aspartate aminotransferase [ Enzymatic activity/volume] in Serum or PlasmaOrdered By: Rose Ohara on 08-09-2023 AST [Catalytic activity/Vol] 11 U/L 13-39 [facility] Basophils Auto (Bld) [#/Vol] Ordered By: Rose Ohara on 08-09-2023 Basophils (Bld) [#/Vol] 0.1 10*3/uL 0.0-0.2 [facility] Basophils/100 WBC Auto (Bld) Ordered By: Rose Ohara on 08-09-2023 Basophils/100 WBC (Bld) 1.3 % . [facility] Bilirubin.total [Mass/volume ] in Serum or PlasmaOrdered By: Rose Ohara on 08-09-2023 Bilirubin [Mass/Vol] 1.1 mg/dL 0.3-1.0 [facility] Calcium [Mass/volume] in Ser um or PlasmaOrdered By: Rose Ohara on 08-09-2023 Calcium [Mass/Vol] 9.8 mg/dL 8.6-10.3 [facility] Carbon dioxide, total [Moles /volume] in Serum or PlasmaOrdered By: Rose Ohara on 08-09-2023 CO2 [Moles/Vol] 27.9 mmol/L 21.0-31.0 [facility] Chloride [Moles/volume] in S marlena or PlasmaOrdered By: Rose Ohara on 08-09-2023 Chloride [Moles/Vol] 104 mmol/L 98-107 [facility] Complete Blood Count Auto Di ffon 08-09-2023 Basophils (Bld) [#/Vol] 0.1 10*3/uL Normal 0.0-0.2 [facility] Comment on above: Result Comment: PERF ORMED BY: [facility] [address] [address] PATHOLOGIST PLUMBING HARDWARE ASSEMBLER SHEBA RICO M.D. Performed By: #### C BC, CMP, LDH ####[place] [address] [place] [id number] [facility] Basophils/100 WBC (Bld) 1.3 % Normal . [facility] Comment on above: Performed By: #### C BC, CMP, LDH ####[place] [id number] [facility] Eosinophils (Bld) [#/Vol] 0.1 10*3/uL Normal 0.0-0.45 [facility] Comment on above: Performed By: #### C BC, CMP, LDH ####[place] [id number] [facility] Eosinophils/100 WBC (Bld) 1.9 % Normal . [facility] Comment on above: Performed By: #### C BC, CMP, LDH ####[address] Erythrocyte distribution width (RBC) [Ratio] 14.5 % Normal 11.9-15.3 [facility] Comment on above: Performed By: #### C BC, CMP, LDH ####[place] [id number] [facility] Hematocrit (Bld) [Volume fraction] 41.7 % Normal 34.0-46.4 [facility] Comment on above: Performed By: #### C BC, CMP, LDH ####[place] [phone] [facility] Hemoglobin (Bld) [Mass/Vol] 13.6 g/dL Normal 11.8-15.4 [facility] Comment on above: Performed By: #### C BC, CMP, LDH ####[place] [id number] [facility] Lymphocytes (Bld) [#/Vol] 1.6 10*3/uL Normal 1.00-4.8 [facility] Comment on above: Performed By: #### C BC, CMP, LDH ####[place] [id number] [facility] Lymphocytes/100 WBC (Bld) 23.9 % Normal . [facility] Comment on above: Performed By: #### C BC, CMP, LDH ####[address] MCH (RBC) [Entitic mass] 29.6 pg Normal 24.7-34.3 [facility] Comment on above: Performed By: #### C BC, CMP, LDH ####[address] MCV (RBC) [Entitic vol] 90.7 fL Normal 80-100 [facility] Comment on above: Performed By: #### C BC, CMP, LDH ####[address] Mean Corpuscular HGB Conc 32.6 g/dL Normal 32.0-35.0 [facility] Comment on above: Performed By: #### C BC, CMP, LDH ####[address] Monocytes (Bld) [#/Vol] 0.6 10*3/uL Normal 0.0-0.8 [facility] Comment on above: Performed By: #### C BC, CMP, LDH ####[address] Monocytes/100 WBC (Bld) 9.2 % Normal . [facility] Comment on above: Performed By: #### C BC, CMP, LDH ####[address] Neutrophils (Bld) [#/Vol] 4.1 10*3/uL Normal 1.8-7.7 [facility] Comment on above: Performed By: #### C BC, CMP, LDH ####[address] Neutrophils/100 WBC (Bld) 63.7 % Normal . [facility] Comment on above: Performed By: #### C BC, CMP, LDH ####[address] NRBC% 0.1 /100{WBC} Normal 0-0.5 [facility] Comment on above: Performed By: #### C BC, CMP, LDH ####[place] [id number] [facility] Platelet mean volume (Bld) [Entitic vol] 7.8 fL Normal 6.3-10.7 [facility] Comment on above: Performed By: #### C BC, CMP, LDH ####[place] [phone] [facility] Platelets (Bld) [#/Vol] 200 10*3/uL Normal 150-450 [facility] Comment on above: Performed By: #### C BC, CMP, LDH ####[place] [phone] [facility] RBC (Bld) [#/Vol] 4.59 10*6/uL Normal 3.60-5.00 [facility] Comment on above: Performed By: #### C BC, CMP, LDH ####[place] [phone] [facility] WBC (Bld) [#/Vol] 6.5 10*3/uL Normal 3.8-11.6 [facility] Comment on above: Performed By: #### C BC, CMP, LDH ####[place] 1235270 [facility] Comprehensive Metabolic Pane [place] 08-09-2023 Albumin [Mass/Vol] 4.5 g/dL Normal 3.5-5.7 [facility] Comment on above: Order Comment: pt is a fasting Performed By: #### C BC, CMP, LDH ####[place] [id number] [facility] Albumin/Globulin [Mass ratio] 1.8 {ratio} Normal [facility] Comment on above: Order Comment: pt is a fasting Performed By: #### C BC, CMP, LDH ####[place] [phone] [facility] ALP [Catalytic activity/Vol] 48 U/L Normal 34-104 [facility] Comment on above: Order Comment: pt is a fasting Performed By: #### C BC, CMP, LDH ####[place] [address] [place] [address] [facility] ALT [Catalytic activity/Vol] 13 U/L Normal 7-52 [facility] Comment on above: Order Comment: pt is a fasting Performed By: #### C BC, CMP, LDH ####[address] [address] [facility] Anion gap [Moles/Vol] 13.2 mmol/L Normal 6.0-15.0 [facility] Comment on above: Order Comment: pt is a fasting Performed By: #### C BC, CMP, LDH ####[address] [address] [facility] AST [Catalytic activity/Vol] 11 U/L Low 13-39 [facility] Comment on above: Order Comment: pt is a fasting Performed By: #### C BC, CMP, LDH ####[address] [address] [facility] Bilirubin [Mass/Vol] 1.1 mg/dL High 0.3-1.0 [facility] Comment on above: Order Comment: pt is a fasting Performed By: #### C BC, CMP, LDH ####[address] [address] [facility] Calcium [Mass/Vol] 9.8 mg/dL Normal 8.6-10.3 [facility] Comment on above: Order Comment: pt is a fasting Performed By: #### C BC, CMP, LDH ####[address] [address] [facility] Chloride [Moles/Vol] 104 mmol/L Normal 98-107 [facility] Comment on above: Order Comment: pt is a fasting Performed By: #### C BC, CMP, LDH ####[address] [address] [facility] CO2 [Moles/Vol] 27.9 mmol/L Normal 21.0-31.0 [facility] Comment on above: Order Comment: pt is a fasting Performed By: #### C BC, CMP, LDH ####[facility] [place] [address] [facility] Creatinine [Mass/Vol] 0.86 mg/dL Normal 0.60-1.20 [facility] Comment on above: Order Comment: pt is a fasting Performed By: #### C BC, CMP, LDH ####[place] [address] [place] [address] [facility] Creatinine Clr Calc Pharmacy 64.19 [facility] Comment on above: Order Comment: pt is a fasting Performed By: #### C BC, CMP, LDH ####[address] [address] [facility] GFR/1.73 sq M.predicted MDRD (S/P/Bld) [Vol rate/Area] mL/min/{1.73_m2} [facility] Comment on above: Order Comment: pt is a fasting Performed By: #### C BC, CMP, LDH ####[place] [id number] [facility] Globulin (S) [Mass/Vol] 2.5 g/dL [facility] Comment on above: Order Comment: pt is a fasting Performed By: #### C BC, CMP, LDH ####[place] 1235270 [facility] Glucose [Mass/Vol] 168 mg/dL High 70-100 [facility] Comment on above: Order Comment: pt is a fasting Result Comment: [place] Glucose Reference Range is dependent on time and content of last meal. Glucose of more than 200 mg/dL in a nonstressed, ambulatory subject supports the diagnosis of Diabetes Mellitus. ADA recommended reference range Performed By: #### C BC, CMP, LDH ####[place] [id number] [facility] Potassium [Moles/Vol] 5.1 mmol/L Normal 3.5-5.1 [facility] Comment on above: Order Comment: pt is a fasting Performed By: #### C BC, CMP, LDH ####[place] [id number] [place] Protein [Mass/Vol] 7.0 g/dL Normal 6.4-8.9 [facility] Comment on above: Order Comment: pt is a fasting Performed By: #### C BC, CMP, LDH ####[facility] [id number] [place] [address] [facility] Sodium [Moles/Vol] 140 mmol/L Normal 136-145 [facility] Comment on above: Order Comment: pt is a fasting Performed By: #### C BC, CMP, LDH ####[facility] [place] [address] [facility] Urea nitrogen [Mass/Vol] 26 mg/dL High 7-25 [facility] Comment on above: Order Comment: pt is a fasting Performed By: #### C BC, CMP, LDH ####[facility] [place] [id number] [facility] Creatinine [Mass/volume] in Serum or PlasmaOrdered By: Rose Ohara on 08-09-2023 Creatinine [Mass/Vol] 0.86 mg/dL 0.60-1.20 [facility] Eosinophils Auto (Bld) [#/Vo l]Ordered By: Rose Ohara on 08-09-2023 Eosinophils (Bld) [#/Vol] 0.1 10*3/uL 0.0-0.45 [facility] Eosinophils/100 WBC Auto (Bl d)Ordered By: Rose Ohara on 08-09-2023 Eosinophils/100 WBC (Bld) 1.9 % . [facility] Erythrocyte distribution wid th Auto (RBC) [Ratio]Ordered By: Rose Ohara on 08-09-2023 Erythrocyte distribution width (RBC) [Ratio] 14.5 % 11.9-15.3 [facility] Globulin Calc (S) [Mass/Vol] Ordered By: Rose Ohara on 08-09-2023 Globulin (S) [Mass/Vol] 2.5 g/dL [facility] Glucose [Mass/volume] in Ser um or PlasmaOrdered By: Rose Ohara on 08-09-2023 Glucose [Mass/Vol] 168 mg/dL 70-100 [facility] Comment on above: ADA recommended refe rence rangeRandom Glucose Reference Range is dependent on time and content of last meal. Glucose of more than 200 mg/dL in a nonstressed, ambulatory subject supports the diagnosis of Diabetes Mellitus. Hematocrit Auto (Bld) [Volum e fraction]Ordered By: Rose Ohara on 08-09-2023 Hematocrit (Bld) [Volume fraction] 41.7 % 34.0-46.4 [facility] Hemoglobin [Mass/volume] in BloodOrdered By: Rose Ohara on 08-09-2023 Hemoglobin (Bld) [Mass/Vol] 13.6 g/dL 11.8-15.4 [facility] LDH Lactate Dehydrogenaseon 08-09-2023 LDH Lactate Dehydrogenase 135 U/L Low 140-271 [facility] Comment on above: Order Comment: pt is a fasting Result Comment: PERF ORMED BY: [facility] [address] [id number] PATHOLOGIST [employer] SHEBA RICO M.D. Performed By: #### C BC, CMP, LDH ####[facility] [id number] [id number] [facility] Lactate dehydrogenase [Enzym atic activity/volume] in Serum or Plasma by Lactate to pyOrdered By: Rose Ohara on 08-09-2023 LDH Lactate to pyruvate reaction [Catalytic activity/Vol] 135 U/L 140-271 [facility] Leukocytes [#/volume] correc jin for nucleated erythrocytes in Blood by Automated counOrdered By: Rose Ohara on 08-09-2023 WBC corrected for nucl RBC Auto (Bld) [#/Vol] 6.5 10*3/uL 3.8-11.6 [facility] Lymphocytes Auto (Bld) [#/Vo l]Ordered By: Rose Ohara on 08-09-2023 Lymphocytes (Bld) [#/Vol] 1.6 10*3/uL 1.00-4.8 [facility] Lymphocytes/100 WBC Auto (Bl d)Ordered By: Rose Ohara on 08-09-2023 Lymphocytes/100 WBC (Bld) 23.9 % . [facility] MCH Auto (RBC) [Entitic mass ]Ordered By: Rose Ohara on 08-09-2023 MCH (RBC) [Entitic mass] 29.6 pg 24.7-34.3 [facility] MCHC Auto (RBC) [Mass/Vol]Or dered By: Rose Ohara on 08-09-2023 MCHC (RBC) [Mass/Vol] 32.6 g/dL 32.0-35.0 [facility] MCV Auto (RBC) [Entitic vol] Ordered By: Rose Ohara on 08-09-2023 MCV (RBC) [Entitic vol] 90.7 fL 80-100 [facility] Monocytes Auto (Bld) [#/Vol] Ordered By: Rose Ohara on 08-09-2023 Monocytes (Bld) [#/Vol] 0.6 10*3/uL 0.0-0.8 [facility] Monocytes/100 WBC Auto (Bld) Ordered By: Rose Ohara on 08-09-2023 Monocytes/100 WBC (Bld) 9.2 % . [facility] Neutrophils Auto (Bld) [#/Vo l]Ordered By: Rose Ohara on 08-09-2023 Neutrophils (Bld) [#/Vol] 4.1 10*3/uL 1.8-7.7 [facility] Neutrophils/100 WBC Auto (Bl d)Ordered By: Rose Ohara on 08-09-2023 Neutrophils/100 WBC (Bld) 63.7 % . [facility] No Panel InformationOrdered By: Rose Ohara on 08-09-2023 Estimated GFR (CKD-EPI) > 60.0 mL/Min [facility] Creatinine Clearance (Chem 64.19 [facility] Nucleated erythrocytes [Pres ence] in Blood by Automated countOrdered By: Rose Ohara on 08-09-2023 Nucleated RBC Auto Ql (Bld) 0.1 /100{WBC} 0-0.5 [facility] Platelet mean volume Auto (B ld) [Entitic vol]Ordered By: Rose Ohara on 08-09-2023 Platelet mean volume (Bld) [Entitic vol] 7.8 fL 6.3-10.7 [facility] Platelets Auto (Bld) [#/Vol] Ordered By: Rose Ohara on 08-09-2023 Platelets (Bld) [#/Vol] 200 10*3/uL 150-450 [facility] Potassium [Moles/volume] in Serum or PlasmaOrdered By: Rose Ohara on 08-09-2023 Potassium [Moles/Vol] 5.1 mmol/L 3.5-5.1 [facility] Protein [Mass/volume] in Ser um or PlasmaOrdered By: Rose Ohara on 08-09-2023 Protein [Mass/Vol] 7.0 g/dL 6.4-8.9 [facility] RBC Auto (Bld) [#/Vol]Ordere d By: Rose Ohara on 08-09-2023 RBC (Bld) [#/Vol] 4.59 10*6/uL 3.60-5.00 [facility] Serum or plasma albumin/glob ulin mass ratioOrdered By: Rose Ohara on 08-09-2023 Albumin/Globulin [Mass ratio] 1.8 {ratio} [facility] Serum or plasma anion gap de terminationOrdered By: Rose Ohara on 08-09-2023 Anion gap [Moles/Vol] 13.2 mmol/L 6.0-15.0 [facility] Sodium [Moles/volume] in Ser um or PlasmaOrdered By: Rose Ohara on 08-09-2023 Sodium [Moles/Vol] 140 mmol/L 136-145 [facility] US extremity nonvascularon 1 [place] [address] Ultrasound Report Signed Patient: Tosha Mcneal MR#: [id number] : 1950 Acct:[id number] Age/Sex: 72 / F ADM Date: 08/09/23 Loc: Room: Type: [facility] Attending Dr: Rose Ohara MD Ordering Provider: [...] Jenni Sands M.D.08/09/2023 1:36 PM Dictation Location: [place] [address] Tech: Miri Pastrana Transcribed By: [facility] 08/09/23 133 Dictated By: Jenni Sands MD 08/09/231332 Signed By: 08/09/231335 Normal [facility] Urea nitrogen [Mass/volume] in Serum or PlasmaOrdered By: Rose Ohara on 08-09-2023 Urea nitrogen [Mass/Vol] 26 mg/dL 05-31 [facility] WBC Auto (Bld) [#/Vol]Ordere d By: Rose Ohara on 08-09-2023 WBC (Bld) [#/Vol] 6.5 10*3/uL 3.8-11.6 [facility] Office Visiton 05-17-2023 Follow-up visit [id number] Renee Mcneal 1950 F Date Provider Department Center 05/17/2023 [id number] MANUEL CARD [facility] Family History Problem Relation Age of Onset Coronary artery disease Father Heart attack Father Family Status - Relation Status Age at Father Level of Service:82973 CT OFFICE/OUTPATIENT ESTABLISHED MOD MDM 30-39 MIN Normal [facility] Alanine aminotransferase [En zymatic activity/volume] in Serum or PlasmaOrdered By: Rose Ohara on 04-12-2023 ALT [Catalytic activity/Vol] 17 U/L 7 [facility] Albumin [Mass/volume] in Ser um or Plasma by Bromocresol green (BCG) dye binding methoOrdered By: Rose Ohara on 04-12-2023 Albumin BCG dye [Mass/Vol] 4.1 g/dL 3.5-5.7 [facility] Alkaline phosphatase [Enzyma tic activity/volume] in Serum or PlasmaOrdered By: Rose Ohara on 04-12-2023 ALP [Catalytic activity/Vol] 57 U/L 34-104 [facility] Aspartate aminotransferase [ Enzymatic activity/volume] in Serum or PlasmaOrdered By: Rose Ohara on 04-12-2023 AST [Catalytic activity/Vol] 16 U/L 13-39 [facility] Basophils Auto (Bld) [#/Vol] Ordered By: Rose Ohara on 04-12-2023 Basophils (Bld) [#/Vol] 0.1 10*3/uL 0.0-0.2 [facility] Basophils/100 WBC Auto (Bld) Ordered By: Rose Ohara on 04-12-2023 Basophils/100 WBC (Bld) 0.9 % . [facility] Bilirubin.total [Mass/volume ] in Serum or PlasmaOrdered By: Rose Ohara on 04-12-2023 Bilirubin [Mass/Vol] 0.9 mg/dL 0.3-1.0 [facility] Calcium [Mass/volume] in Ser um or PlasmaOrdered By: Rose Ohara on 04-12-2023 Calcium [Mass/Vol] 9.1 mg/dL 8.6-10.3 [facility] Carbon dioxide, total [Moles /volume] in Serum or PlasmaOrdered By: Rose Ohara on 04-12-2023 CO2 [Moles/Vol] 27.2 mmol/L 21.0-31.0 [facility] Chloride [Moles/volume] in S marlena or PlasmaOrdered By: Rose Ohara on 04-12-2023 Chloride [Moles/Vol] 102 mmol/L 98-107 [facility] Complete Blood Count Auto Di ffon 04-12-2023 Basophils (Bld) [#/Vol] 0.1 10*3/uL Normal 0.0-0.2 [facility] Comment on above: Result Comment: PERF ORMED BY: [place] [address] PATHOLOGIST [employer] SHEAB RICO M.D. Performed By: #### C BC, LDH, CMP #### [address] Basophils/100 WBC (Bld) 0.9 % Normal . [facility] Comment on above: Performed By: #### C BC, LDH, CMP #### [address] Eosinophils (Bld) [#/Vol] 0.2 10*3/uL Normal 0.0-0.45 [facility] Comment on above: Performed By: #### C BC, LDH, CMP #### [address] Eosinophils/100 WBC (Bld) 2.2 % Normal . [facility] Comment on above: Performed By: #### C BC, LDH, CMP #### [address] Erythrocyte distribution width (RBC) [Ratio] 14.7 % Normal 11.9-15.3 [facility] Comment on above: Performed By: #### C BC, LDH, CMP #### [address] Hematocrit (Bld) [Volume fraction] 41.4 % Normal 34.0-46.4 [facility] Comment on above: Performed By: #### C BC, LDH, CMP #### [address] Hemoglobin (Bld) [Mass/Vol] 13.5 g/dL Normal 11.8-15.4 [facility] Comment on above: Performed By: #### C BC, LDH, CMP #### [address] Lymphocytes (Bld) [#/Vol] 1.8 10*3/uL Normal 1.00-4.8 [facility] Comment on above: Performed By: #### C BC, LDH, CMP #### [address] Lymphocytes/100 WBC (Bld) 26.0 % Normal . [facility] Comment on above: Performed By: #### C BC, LDH, CMP #### [address] MCH (RBC) [Entitic mass] 29.3 pg Normal 24.7-34.3 [facility] Comment on above: Performed By: #### C BC, LDH, CMP #### [address] MCV (RBC) [Entitic vol] 89.4 fL Normal 80-100 [facility] Comment on above: Performed By: #### C BC, LDH, CMP #### [address] Mean Corpuscular HGB Conc 32.7 g/dL Normal 32.0-35.0 [facility] Comment on above: Performed By: #### C BC, LDH, CMP #### [address] Monocytes (Bld) [#/Vol] 0.6 10*3/uL Normal 0.0-0.8 [facility] Comment on above: Performed By: #### C BC, LDH, CMP #### [address] Monocytes/100 WBC (Bld) 8.6 % Normal . [facility] Comment on above: Performed By: #### C BC, LDH, CMP #### [address] Neutrophils (Bld) [#/Vol] 4.3 10*3/uL Normal 1.8-7.7 [facility] Comment on above: Performed By: #### C BC, LDH, CMP #### [address] Neutrophils/100 WBC (Bld) 62.3 % Normal . [facility] Comment on above: Performed By: #### C BC, LDH, CMP #### [address] NRBC% 0.1 /100{WBC} Normal 0-0.5 [facility] Comment on above: Performed By: #### C BC, LDH, CMP #### [address] Platelet mean volume (Bld) [Entitic vol] 8.3 fL Normal 6.3-10.7 [facility] Comment on above: Performed By: #### C BC, LDH, CMP #### [facility] [address] Platelets (Bld) [#/Vol] 197 10*3/uL Normal 150-450 [facility] Comment on above: Performed By: #### C BC, LDH, CMP #### [address] RBC (Bld) [#/Vol] 4.62 10*6/uL Normal 3.60-5.00 [facility] Comment on above: Performed By: #### C BC, LDH, CMP #### [address] WBC (Bld) [#/Vol] 6.9 10*3/uL Normal 3.8-11.6 [facility] Comment on above: Performed By: #### C BC, LDH, CMP #### [address] Comprehensive Metabolic P[place] 04-12-2023 Albumin [Mass/Vol] 4.1 g/dL Normal 3.5-5.7 [facility] Comment on above: Performed By: #### C BC, LDH, CMP #### [address] Albumin/Globulin [Mass ratio] 1.6 {ratio} Normal [facility] Comment on above: Performed By: #### C BC, LDH, CMP #### [address] ALP [Catalytic activity/Vol] 57 U/L Normal 34-104 [facility] Comment on above: Performed By: #### C BC, LDH, CMP #### [address] ALT [Catalytic activity/Vol] 17 U/L Normal 7-52 [facility] Comment on above: Performed By: #### C BC, LDH, CMP #### [facility] [address] [place] [address] [place] Anion gap [Moles/Vol] 15.6 mmol/L High 6.0-15.0 [facility] Comment on above: Performed By: #### C BC, LDH, CMP #### [facility] [address] [place] [address] [place] AST [Catalytic activity/Vol] 16 U/L Normal 13-39 [facility] Comment on above: Performed By: #### C BC, LDH, CMP #### [facility] [address] [place] [address] [place] Bilirubin [Mass/Vol] 0.9 mg/dL Normal 0.3-1.0 [facility] Comment on above: Performed By: #### C BC, LDH, CMP #### [facility] [address] Calcium [Mass/Vol] 9.1 mg/dL Normal 8.6-10.3 [facility] Comment on above: Performed By: #### C BC, LDH, CMP #### [facility] [address] [place] [address] [place] Chloride [Moles/Vol] 102 mmol/L Normal 98-107 [facility] Comment on above: Performed By: #### C BC, LDH, CMP #### [facility] [address] [place] [address] [place] CO2 [Moles/Vol] 27.2 mmol/L Normal 21.0-31.0 [facility] Comment on above: Performed By: #### C BC, LDH, CMP #### [facility] [address] [place] [address] [place] Creatinine [Mass/Vol] 1.01 mg/dL Normal 0.60-1.20 [facility] Comment on above: Performed By: #### C BC, LDH, CMP #### [facility] [address] [place] [address] [place] Creatinine Clr Calc Pharmacy 54.77 Normal [facility] Comment on above: Performed By: #### C BC, LDH, CMP #### [facility] [address] [place] [address] [place] GFR/1.73 sq M.predicted MDRD (S/P/Bld) [Vol rate/Area] 58.780 mL/min/{1.73_m2} [facility] Comment on above: Performed By: #### C BC, LDH, CMP #### [facility] [address] [place] [address] [place] Globulin (S) [Mass/Vol] 2.6 g/dL [facility] Comment on above: Performed By: #### C BC, LDH, CMP #### [address] Glucose [Mass/Vol] 203 mg/dL High 70-100 [facility] Comment on above: Result Comment: [facility] Glucose Reference Range is dependent on time and content of last meal. Glucose of more than 200 mg/dL in a nonstressed, ambulatory subject supports the diagnosis of Diabetes Mellitus. ADA recommended reference range Performed By: #### C BC, LDH, CMP #### [address] Potassium [Moles/Vol] 4.8 mmol/L Normal 3.5-5.1 [facility] Comment on above: Performed By: #### C BC, LDH, CMP #### [address] Protein [Mass/Vol] 6.7 g/dL Normal 6.4-8.9 [facility] Comment on above: Performed By: #### C BC, LDH, CMP #### [place] [address] [place] Sodium [Moles/Vol] 140 mmol/L Normal 136-145 [facility] Comment on above: Performed By: #### C BC, LDH, CMP #### [address] Urea nitrogen [Mass/Vol] 34 mg/dL High 7-25 [facility] Comment on above: Performed By: #### C BC, LDH, CMP #### [address] [place] [address] [facility] Creatinine [Mass/volume] in Serum or PlasmaOrdered By: Rose Ohara on 04-12-2023 Creatinine [Mass/Vol] 1.01 mg/dL 0.60-1.20 [facility] Eosinophils Auto (Bld) [#/Vo l]Ordered By: Rose Ohara on 04-12-2023 Eosinophils (Bld) [#/Vol] 0.2 10*3/uL 0.0-0.45 [facility] Eosinophils/100 WBC Auto (Bl d)Ordered By: Rose Ohara on 04-12-2023 Eosinophils/100 WBC (Bld) 2.2 % . [facility] Erythrocyte distribution wid th Auto (RBC) [Ratio]Ordered By: Rose Ohara on 04-12-2023 Erythrocyte distribution width (RBC) [Ratio] 14.7 % 11.9-15.3 [facility] Globulin Calc (S) [Mass/Vol] Ordered By: Rose Ohara on 04-12-2023 Globulin (S) [Mass/Vol] 2.6 g/dL [facility] Glucose [Mass/volume] in Ser um or PlasmaOrdered By: Rose Ohara on 04-12-2023 Glucose [Mass/Vol] 203 mg/dL 70-100 [facility] Comment on above: ADA recommended refe rence rangeRandom Glucose Reference Range is dependent on time and content of last meal. Glucose of more than 200 mg/dL in a nonstressed, ambulatory subject supports the diagnosis of Diabetes Mellitus. Hematocrit Auto (Bld) [Volum e fraction]Ordered By: Rose Ohara on 04-12-2023 Hematocrit (Bld) [Volume fraction] 41.4 % 34.0-46.4 [facility] Hemoglobin [Mass/volume] in BloodOrdered By: Rose Ohara on 04-12-2023 Hemoglobin (Bld) [Mass/Vol] 13.5 g/dL 11.8-15.4 [facility] LDH Lactate Dehydrogenaseon 04-12-2023 LDH Lactate Dehydrogenase 120 U/L Low 140-271 [facility] Comment on above: Result Comment: PERF ORMED BY: [facility] [address] [place], [place] [id number] PATHOLOGIST [employer] SHEBA RICO M.D. Performed By: #### C BC, LDH, CMP #### [facility] [address] Lactate dehydrogenase [Enzym atic activity/volume] in Serum or Plasma by Lactate to pyOrdered By: Rose Ohara on 04-12-2023 LDH Lactate to pyruvate reaction [Catalytic activity/Vol] 120 U/L 140-271 [facility] Leukocytes [#/volume] correc jin for nucleated erythrocytes in Blood by Automated counOrdered By: Rose Ohaar on 04-12-2023 WBC corrected for nucl RBC Auto (Bld) [#/Vol] 6.9 10*3/uL 3.8-11.6 [facility] Lymphocytes Auto (Bld) [#/Vo l]Ordered By: Rose Ohara on 04-12-2023 Lymphocytes (Bld) [#/Vol] 1.8 10*3/uL 1.00-4.8 [facility] Lymphocytes/100 WBC Auto (Bl d)Ordered By: Rose Ohara on 04-12-2023 Lymphocytes/100 WBC (Bld) 26.0 % . [facility] MCH Auto (RBC) [Entitic mass ]Ordered By: Rose Ohara on 04-12-2023 MCH (RBC) [Entitic mass] 29.3 pg 24.7-34.3 [facility] MCHC Auto (RBC) [Mass/Vol]Or dered By: Rose Ohara on 04-12-2023 MCHC (RBC) [Mass/Vol] 32.7 g/dL 32.0-35.0 [facility] MCV Auto (RBC) [Entitic vol] Ordered By: Rose Ohara on 04-12-2023 MCV (RBC) [Entitic vol] 89.4 fL 80-100 [facility] Monocytes Auto (Bld) [#/Vol] Ordered By: Rose Ohara on 04-12-2023 Monocytes (Bld) [#/Vol] 0.6 10*3/uL 0.0-0.8 [facility] Monocytes/100 WBC Auto (Bld) Ordered By: Rose Ohara on 04-12-2023 Monocytes/100 WBC (Bld) 8.6 % . [facility] Neutrophils Auto (Bld) [#/Vo l]Ordered By: Rose Ohara on 04-12-2023 Neutrophils (Bld) [#/Vol] 4.3 10*3/uL 1.8-7.7 [facility] Neutrophils/100 WBC Auto (Bl d)Ordered By: Rose Ohara on 04-12-2023 Neutrophils/100 WBC (Bld) 62.3 % . [facility] No Panel InformationOrdered By: Rose Ohara on 04-12-2023 Estimated GFR (CKD-EPI) 58.780 mL/Min [facility] Creatinine Clearance (Chem 54.77 [facility] Nucleated erythrocytes [Pres ence] in Blood by Automated countOrdered By: Rose Ohara on 04-12-2023 Nucleated RBC Auto Ql (Bld) 0.1 /100{WBC} 0-0.5 [facility] Platelet mean volume Auto (B ld) [Entitic vol]Ordered By: Rose Ohara on 04-12-2023 Platelet mean volume (Bld) [Entitic vol] 8.3 fL 6.3-10.7 [facility] Platelets Auto (Bld) [#/Vol] Ordered By: Rose Ohara on 04-12-2023 Platelets (Bld) [#/Vol] 197 10*3/uL 150-450 [facility] Potassium [Moles/volume] in Serum or PlasmaOrdered By: Rose Ohara on 04-12-2023 Potassium [Moles/Vol] 4.8 mmol/L 3.5-5.1 [facility] Protein [Mass/volume] in Ser um or PlasmaOrdered By: Rose Ohara on 04-12-2023 Protein [Mass/Vol] 6.7 g/dL 6.4-8.9 [facility] RBC Auto (Bld) [#/Vol]Ordere d By: Rose Ohara on 04-12-2023 RBC (Bld) [#/Vol] 4.62 10*6/uL 3.60-5.00 [facility] Serum or plasma albumin/glob ulin mass ratioOrdered By: Rose Ohara on 04-12-2023 Albumin/Globulin [Mass ratio] 1.6 {ratio} [facility] Serum or plasma anion gap de terminationOrdered By: Rose Ohara on 04-12-2023 Anion gap [Moles/Vol] 15.6 mmol/L 6.0-15.0 [facility] Sodium [Moles/volume] in Ser um or PlasmaOrdered By: Rose Ohara on 04-12-2023 Sodium [Moles/Vol] 140 mmol/L 136-145 [facility] Urea nitrogen [Mass/volume] in Serum or PlasmaOrdered By: Rose Ohara on 04-12-2023 Urea nitrogen [Mass/Vol] 34 mg/dL 7-25 [facility] WBC Auto (Bld) [#/Vol]Ordere d By: Rose Ohara on 04-12-2023 WBC (Bld) [#/Vol] 6.9 10*3/uL 3.8-11.6 [facility] US extremity nonvascularon 0 04-07-2023 US extremity nonvascular [facility] [place] [address] Ultrasound Report Signed Patient: Tosha Mcneal MR#: [id number] : 1950 Acct:[id number] Age/Sex: 72 / F ADM Date: 04/07/23 Loc: Room: Type: [facility] Attending Dr: Rose Ohara MD Ordering Provider: [...] Kruse Jr., D.O.04/07/2023 8:57 AM Dictation Location: [facility] Tech: Valerie Frankel Transcribed By: PWS 04/07/23856 Dictated By: Miki Kruse Jr, DO 04/07/2344 Signed By: 04/07/23856 Normal [facility] LIPID PROFILEon 03-03-2023 CHOL-HDL RATIO NORM SEE BELOW Normal [facility] Comment on above: Result Comment: 3.3 - 4.4 LOW RISK 4.4 - 7.1 AVERAGE RISK 7.1 - 11.0 MODERATE RISK >11.0 HIGH RISK Performed By: #### L IPID #### [facility] [address] [address] [address] Claudia Branch Cholesterol [Mass/Vol] 129 mg/dL Normal <=200 [facility] Comment on above: Performed By: #### L IPID #### [facility] [address] [address] [address] Claudia Branch Cholesterol in HDL [Mass/Vol] 43 mg/dL Normal 40-60 [facility] Comment on above: Performed By: #### L IPID #### [facility] [address] [address] [address] Claudia Branch Cholesterol in LDL [Mass/Vol] 34.4 mg/dL Normal [facility] Comment on above: Performed By: #### L IPID #### [facility] [address] [address] [address] Claudia Branch Cholesterol.total/Chol esterol in HDL [Mass ratio] 3.0 {ratio} Normal [facility] Comment on above: Performed By: #### L IPID #### [facility] [id number] Claudia Branch HDL NORMAL > or = 60 mg/dl - LO W CARDIOVASCULAR RISK <40 mg/dl - HIGH CARDIOVASCULAR RISK Normal [facility] Comment on above: Performed By: #### L IPID #### [facility] [address] [address] [address] Claudia Branch LDL CALC NORMAL SEE BELOW Normal [facility] Comment on above: Result Comment: <100 mg/dl OPTIMAL 100 - 129 mg/dl NEAR OR ABOVE OPTIMAL 130 - 159 mg/dl BORDERLINE HIGH 160 - 189 mg/dl HIGH >190 mg/dl VERY HIGH Performed By: #### L IPID #### [facility] [address] [place] [address] Dr. Claudia Branch Triglyceride [Mass/Vol] 258 mg/dL Critically high <=150 [facility] Comment on above: Performed By: #### L IPID #### [facility] [address] [place] [address] Dr. Claudia Branch VLDL CALC 51.6 mg/dL Normal [facility] Comment on above: Performed By: #### L IPID #### [facility] [address] [place] [address] Dr. Claudia Branch PROF 14(COMP METB)on 023 Albumin [Mass/Vol] 3.7 g/dL Normal 3.4-5.0 [facility] Comment on above: Performed By: #### C MP #### [facility] [address] [place] [address] Dr. Claudia Branch Albumin/Globulin [Mass ratio] 1.1 {ratio} Normal [facility] Comment on above: Performed By: #### C MP #### [facility] [address] [place] [address] Dr. Claudia Branch ALP [Catalytic activity/Vol] 66 U/L Normal 46-116 [facility] Comment on above: Performed By: #### C MP #### [facility] [address] [place] [address] Dr. Claudia Branch ALT [Catalytic activity/Vol] 22 U/L Normal 14-59 [facility] Comment on above: Performed By: #### C MP #### [facility] [address] [place] [address] Dr. Claudia Branch Anion gap [Moles/Vol] 15.4 mmol/L Normal [facility] Comment on above: Performed By: #### C MP #### [facility] [address] [place] [address] Dr. Claudia Branch AST [Catalytic activity/Vol] 14 U/L Critically low 15-37 [facility] Comment on above: Performed By: #### C MP #### [facility] [address] [address] [address] Claudia Branch Bilirubin [Mass/Vol] 1.0 mg/dL Normal 0.2-1.0 [facility] Comment on above: Performed By: #### C MP #### [facility] [address] [address] [address] Claudia Branch Calcium [Mass/Vol] 9.4 mg/dL Normal 8.5-10.1 [facility] Comment on above: Performed By: #### C MP #### [facility] [address] [address] [address] Claudia Branch Chloride [Moles/Vol] 102 mmol/L Normal 98-107 [facility] Comment on above: Performed By: #### C MP #### [facility] [address] [address] [address] Claudia Branch CO2 [Moles/Vol] 28.0 mmol/L Normal 21.0-32.0 [facility] Comment on above: Performed By: #### C MP #### [facility] [address] [address] [address] Claudia Branch Creatinine [Mass/Vol] 1.04 mg/dL Critically high 0.55-1.02 [facility] Comment on above: Performed By: #### C MP #### [facility] [address] [address] [address] Claudia Branch EGFR-AF TURKISH >60 Normal >=60 [facility] Comment on above: Performed By: #### C MP #### [facility] [address] [address] [address] Claudia Branch EGFR-NON AF TURKISH 52 mL/min/1.73m2 Critically low >=60 [facility] Comment on above: Performed By: #### C MP #### [facility] [address] [address] [address] Claudia Branch Globulin (S) [Mass/Vol] 3.5 g/dL Normal [facility] Comment on above: Performed By: #### C MP #### [facility] [address] [address] [address] Claudia Branch Glucose [Mass/Vol] 174 mg/dL Critically high 74-[address] [facility] Comment on above: Performed By: #### C MP #### [facility] [address] [address] [address] Claudia Branch Potassium [Moles/Vol] 5.4 mmol/L Critically high 3.5-5.1 [facility] Comment on above: Performed By: #### C MP #### [facility] [address] [address] [address] Claudia Branch Protein [Mass/Vol] 7.2 g/dL Normal 6.4-8.2 [facility] Comment on above: Performed By: #### C MP #### [facility] [address] [address] [address] Claudia Branch Sodium [Moles/Vol] 140 mmol/L Normal 136-145 [facility] Comment on above: Performed By: #### C MP #### [facility] [address] [address] [address] Claudia Branch Urea nitrogen [Mass/Vol] 26.0 mg/dL Critically high 7.0-18.0 [facility] Comment on above: Performed By: #### C MP #### [facility] [address] [address] [address] Claudia Branch Urea nitrogen/Creatinine [Mass ratio] 25.0 mg/mg Normal [facility] Comment on above: Performed By: #### C MP #### [facility] [address] [address] [address] Claudia Branch Estimated glomerular filtrat ion rate (GFR) non- AmericanOrdered By: Rose Ohara on 12-21-2022 GFR/1.73 sq M.predicted among non-blacks MDRD (S/P/Bld) [Vol rate/Area] > 60 mL/Min [facility] No Panel InformationOrdered By: Rose Ohara on 12-21-2022 Estimated GFR () > 60 mL/Min [facility] Comment on above: GFR estimated refere nce range: According to KDOQI guidelines, <60 ml/min/1.73m2 is sufficient to diagnose a patient with chronic kidney disease. Albumin [Mass/volume] in Ser um or PlasmaOrdered By: Rose Ohara on 09-22-2022 Albumin [Mass/Vol] 3.7 g/dL 3.2-5.5 [facility] Basophils Auto (Bld) [#/Vol] Ordered By: Rose Ohara on 09-22-2022 Basophils (Bld) [#/Vol] 0.1 10*3/uL 0.0-0.2 [facility] Basophils/100 WBC Auto (Bld) Ordered By: Rose Ohara on 09-22-2022 Basophils/100 WBC (Bld) 1.0 % . [facility] Creatinine and Glomerular fi ltration rate.predicted panel (S/P/Bld)Ordered By: Rose Ohara on 09-22-2022 Creatinine [Mass/Vol] 0.80 mg/dL 0.44-1.03 [facility] Eosinophils Auto (Bld) [#/Vo l]Ordered By: Rose Ohara on 09-22-2022 Eosinophils (Bld) [#/Vol] 0.1 10*3/uL 0.0-0.45 [facility] Eosinophils/100 WBC Auto (Bl d)Ordered By: Rose Ohara on 09-22-2022 Eosinophils/100 WBC (Bld) 2.0 % . [facility] Erythrocyte distribution wid th Auto (RBC) [Ratio]Ordered By: Rose Ohara on 09-22-2022 Erythrocyte distribution width (RBC) [Ratio] 14.7 % 11.9-15.3 [facility] Estimated glomerular filtrat ion rate (GFR) non- AmericanOrdered By: Rose Ohara on 09-22-2022 GFR/1.73 sq M.predicted among non-blacks MDRD (S/P/Bld) [Vol rate/Area] > 60 mL/Min [facility] Globulin Calc (S) [Mass/Vol] Ordered By: Rose Ohara on 09-22-2022 Globulin (S) [Mass/Vol] 2.8 g/dL [facility] Hematocrit Auto (Bld) [Volum e fraction]Ordered By: Rose Ohara on 09-22-2022 Hematocrit (Bld) [Volume fraction] 43.2 % 34.0-46.4 [facility] Hemoglobin [Mass/volume] in BloodOrdered By: Rose Ohara on 09-22-2022 Hemoglobin (Bld) [Mass/Vol] 13.9 g/dL 11.8-15.4 [facility] - Hematology and Cell countsOrdered By: Rose Ohara on 09-22-2022 Nucleated RBC/100 WBC (Bld) [Ratio] 0.1 % 0-0.5 [facility] Lactate dehydrogenase measur ement (enzymatic activity/volume)Ordered By: Rose Ohara on 09-22-2022 LDH (Unsp spec) [Catalytic activity/Vol] 106 U/L 45-190 [facility] Leukocytes [#/volume] in Blo od by Automated countOrdered By: Rose Ohara on 09-22-2022 WBC (Bld) [#/Vol] 6.9 10*3/uL 4.5-11.0 [facility] Lymphocytes Auto (Bld) [#/Vo l]Ordered By: Rose Ohara on 09-22-2022 Lymphocytes (Bld) [#/Vol] 1.5 10*3/uL 1.00-4.8 [facility] Lymphocytes/100 WBC Auto (Bl d)Ordered By: Rose Ohara on 09-22-2022 Lymphocytes/100 WBC (Bld) 21.6 % . [facility] MCH Auto (RBC) [Entitic mass ]Ordered By: Rose Ohara on 09-22-2022 MCH (RBC) [Entitic mass] 29.0 pg 24.7-34.3 [facility] MCHC Auto (RBC) [Mass/Vol]Or dered By: Rose Ohara on 09-22-2022 MCHC (RBC) [Mass/Vol] 32.2 g/dL 32.0-35.0 [facility] MCV Auto (RBC) [Entitic vol] Ordered By: Rose Ohara on 09-22-2022 MCV (RBC) [Entitic vol] 90.2 fL 80-100 [facility] Monocytes Auto (Bld) [#/Vol] Ordered By: Rose Ohara on 09-22-2022 Monocytes (Bld) [#/Vol] 0.7 10*3/uL 0.0-0.8 [facility] Monocytes/100 WBC Auto (Bld) Ordered By: Rose Ohara on 09-22-2022 Monocytes/100 WBC (Bld) 9.7 % . [facility] Neutrophils Auto (Bld) [#/Vo l]Ordered By: Rose Ohara on 09-22-2022 Neutrophils (Bld) [#/Vol] 4.5 10*3/uL 1.8-7.7 [facility] Neutrophils/100 WBC Auto (Bl d)Ordered By: Rose Ohara on 09-22-2022 Neutrophils/100 WBC (Bld) 65.7 % . [facility] No Panel InformationOrdered By: Rose Ohara on 09-22-2022 Estimated GFR () > 60 mL/Min [facility] Comment on above: GFR estimated refere nce range: According to KDOQI guidelines, <60 ml/min/1.73m2 is sufficient to diagnose a patient with chronic kidney disease. Pharmacy Creatinine Clearance (Chem 70.04 [facility] Platelet mean volume Auto (B ld) [Entitic vol]Ordered By: Rose Ohara on 09-22-2022 Platelet mean volume (Bld) [Entitic vol] 8.0 fL 6.3-10.7 [facility] Platelets Auto (Bld) [#/Vol] Ordered By: Rose Ohara on 09-22-2022 Platelets (Bld) [#/Vol] 227 10*3/uL 150-450 [facility] Protein [Mass/volume] in Ser um or PlasmaOrdered By: Rose Ohara on 09-22-2022 Protein [Mass/Vol] 6.5 g/dL 6.1-7.9 [facility] RBC Auto (Bld) [#/Vol]Ordere d By: Rose Ohara on 09-22-2022 RBC (Bld) [#/Vol] 4.79 10*6/uL 3.60-5.00 [facility] Serum or plasma alanine mari otransferase measurement without P-5'-P (enzymatic activiOrdered By: Rose Ohara on 09-22-2022 ALT No additional P-5'-P [Catalytic activity/Vol] 16 U/L 10-60 [facility] Serum or plasma albumin/glob ulin mass ratioOrdered By: Rose Ohara on 09-22-2022 Albumin/Globulin [Mass ratio] 1.3 {ratio} [facility] Serum or plasma alkaline danial sphatase measurement (enzymatic activity/volume)Ordered By: Rose Ohara on 09-22-2022 ALP [Catalytic activity/Vol] 45 U/L 32-92 [facility] Serum or plasma anion gap de terminationOrdered By: Rose Ohara on 09-22-2022 Anion gap [Moles/Vol] 11.0 mmol/L 6.0-15.0 [facility] Serum or plasma aspartate am inotransferase measurement (enzymatic activity/volume)Ordered By: Rose Ohara on 09-22-2022 AST [Catalytic activity/Vol] 17 U/L 10-42 [facility] Serum or plasma calcium kandi urement (mass/volume)Ordered By: Rose Ohara on 09-22-2022 Calcium [Mass/Vol] 9.2 mg/dL 8.2-10.2 [facility] Serum or plasma chloride florentino surement (moles/volume)Ordered By: Rose Ohara on 09-22-2022 Chloride [Moles/Vol] 99 mmol/L 95-114 [facility] Serum or plasma glucose kandi urement (mass/volume)Ordered By: Rose Ohara on 09-22-2022 Glucose [Mass/Vol] 113 mg/dL 70-100 [facility] Comment on above: ADA recommended refe rence rangeRandom Glucose Reference Range is dependent on time and content of last meal. Glucose of more than 200 mg/dL in a nonstressed, ambulatory subject supports the diagnosis of Diabetes Mellitus. Serum or plasma potassium me asurement (moles/volume)Ordered By: Rose Ohara on 09-22-2022 Potassium [Moles/Vol] 4.3 mmol/L 3.5-5.1 [facility] Serum or plasma sodium measu rement (moles/volume)Ordered By: Rose Ohara on 09-22-2022 Sodium [Moles/Vol] 135 mmol/L 136-146 [facility] Serum or plasma total biliru bin measurement (mass/volume)Ordered By: Rose Ohara on 09-22-2022 Bilirubin [Mass/Vol] 1.2 mg/dL 0.3-1.2 [facility] Serum or plasma total carbon dioxide measurement (moles/volume)Ordered By: Rose Ohara on 09-22-2022 CO2 [Moles/Vol] 29.3 mmol/L 22.0-30.0 [facility] Serum or plasma urea nitroge n measurement (mass/volume)Ordered By: Rose Ohara on 09-22-2022 Urea nitrogen [Mass/Vol] 16 mg/dL 9 [facility] GLYCOHEMOGLOBIN A1Con 2021 ADA RECOMMENDATION SEE BELOW Normal [facility] Comment on above: Result Comment: ADA RECOMMENDED LIMIT 4.0 - 6.0 ADA THERAPEUTIC TARGET < 7.0 ACTION SUGGESTED > 7.0 Performed By: #### A 1C #### [facility] [address] [address] [address] Claudia Branch Glucose [Mass/Vol] 169 mg/dL Normal [facility] Comment on above: Performed By: #### A 1C #### [facility] [address] [address] [address] Claudia Branch HbA1c (Bld) [Mass fraction] 7.5 % Critically high 4.5-6.2 [facility] Comment on above: Performed By: #### A 1C #### [facility] [address] [address] [address] Claudia Branch LIPID PROFILEon 08-26-2022 CHOL-HDL RATIO NORM SEE BELOW Normal [facility] Comment on above: Result Comment: 3.3 - 4.4 LOW RISK 4.4 - 7.1 AVERAGE RISK 7.1 - 11.0 MODERATE RISK >11.0 HIGH RISK Performed By: #### L IPID, CMP #### [facility] [address] [address] [address] Claudia Branch Cholesterol [Mass/Vol] 99 mg/dL Normal <=200 [facility] Comment on above: Performed By: #### L IPID, CMP #### [facility] [address] [address] [address] Claudia Branch Cholesterol in HDL [Mass/Vol] 45 mg/dL Normal 40-60 [facility] Comment on above: Performed By: #### L IPID, CMP #### [facility] [address] [address] [address] Claudia Branch Cholesterol in LDL [Mass/Vol] 22.6 mg/dL Normal [facility] Comment on above: Performed By: #### L IPID, CMP #### [facility] [address] [address] [address] Claudia Branch Cholesterol.total/Chol esterol in HDL [Mass ratio] 2.2 {ratio} Normal [facility] Comment on above: Performed By: #### L IPID, CMP #### [facility] [address] [address] [address] Claudia Branch HDL NORMAL > or = 60 mg/dl - LO W CARDIOVASCULAR RISK <40 mg/dl - HIGH CARDIOVASCULAR RISK Normal [facility] Comment on above: Performed By: #### L IPID, CMP #### [facility] [address] [address] [address] Claudia Branch LDL CALC NORMAL SEE BELOW Normal [facility] Comment on above: Result Comment: <100 mg/dl OPTIMAL 100 - 129 mg/dl NEAR OR ABOVE OPTIMAL 130 - 159 mg/dl BORDERLINE HIGH 160 - 189 mg/dl HIGH >190 mg/dl VERY HIGH Performed By: #### L IPID, CMP #### [facility] [address] [address] [address] Claudia Branch Triglyceride [Mass/Vol] 157 mg/dL Critically high <=150 [facility] Comment on above: Performed By: #### L IPID, CMP #### [facility] [address] [address] [address] Claudia Branch VLDL CALC 31.4 mg/dL Normal [facility] Comment on above: Performed By: #### L IPID, CMP #### [facility] [address] [address] [address] Claudia Branch PROF 14(COMP METB)on 022 Albumin [Mass/Vol] 3.9 g/dL Normal 3.4-5.0 [facility] Comment on above: Performed By: #### L IPID, CMP #### [facility] [address] [address] [address] Claudia Branch Albumin/Globulin [Mass ratio] 1.0 {ratio} Normal [facility] Comment on above: Performed By: #### L IPID, CMP #### [facility] [address] [address] [address] Claudia Branch ALP [Catalytic activity/Vol] 57 U/L Normal 46-116 [facility] Comment on above: Performed By: #### L IPID, CMP #### [facility] [address] [place] [address] Dr. Claudia Branch ALT [Catalytic activity/Vol] 22 U/L Normal 14-59 [facility] Comment on above: Performed By: #### L IPID, CMP #### [facility] [address] [address] [address] Claudia Branch Anion gap [Moles/Vol] 10.7 mmol/L Normal [facility] Comment on above: Performed By: #### L IPID, CMP #### [facility] [address] [address] [address] Claudia Branch AST [Catalytic activity/Vol] 11 U/L Critically low 15-37 [facility] Comment on above: Performed By: #### L IPID, CMP #### [facility] [address] [address] [address] Claudia Branch Bilirubin [Mass/Vol] 1.4 mg/dL Critically high 0.2-1.0 [facility] Comment on above: Performed By: #### L IPID, CMP #### [facility] [address] [address] [address] Claudia Branch Calcium [Mass/Vol] 9.3 mg/dL Normal 8.5-10.1 [facility] Comment on above: Performed By: #### L IPID, CMP #### [facility] [address] [address] [address] Claudia Branch Chloride [Moles/Vol] 103 mmol/L Normal 98-107 [facility] Comment on above: Performed By: #### L IPID, CMP #### [facility] [address] [address] [address] Claudia Branch CO2 [Moles/Vol] 31.2 mmol/L Normal 21.0-32.0 [facility] Comment on above: Performed By: #### L IPID, CMP #### [facility] [address] [address] [address] Claudia Branch Creatinine [Mass/Vol] 0.83 mg/dL Normal 0.55-1.02 [facility] Comment on above: Performed By: #### L IPID, CMP #### [facility] [address] [place] [address] Dr. Claudia Branch EGFR-AF TURKISH >60 Normal >=60 [facility] Comment on above: Performed By: #### L IPID, CMP #### [facility] [address] [place] [address] Dr. Claudia Branch EGFR-NON AF TURKISH >60 Normal >=60 [facility] Comment on above: Performed By: #### L IPID, CMP #### [facility] [address] [place] [address] Dr. Claudia Branch Globulin (S) [Mass/Vol] 3.6 g/dL Normal [facility] Comment on above: Performed By: #### L IPID, CMP #### [facility] [address] [address] [address] Claudia Branch Glucose [Mass/Vol] 114 mg/dL Critically high 74-106 [facility] Comment on above: Performed By: #### L IPID, CMP #### [facility] [address] [place] [address] Dr. Claudia Branch Potassium [Moles/Vol] 4.4 mmol/L Normal 3.5-5.1 [facility] Comment on above: Performed By: #### L IPID, CMP #### [facility] [address] [address] [address] Claudia Branch Protein [Mass/Vol] 7.5 g/dL Normal 6.4-8.2 [facility] Comment on above: Performed By: #### L IPID, CMP #### [facility] [address] [place] [address] Dr. Claudia Branch Sodium [Moles/Vol] 141 mmol/L Normal 136-145 [facility] Comment on above: Performed By: #### L IPID, CMP #### [facility] [address] [place] [address] Dr. Claudia Branch Urea nitrogen [Mass/Vol] 20.0 mg/dL Critically high 7.0-18.0 [facility] Comment on above: Performed By: #### L IPID, CMP #### [facility] [address] [place] [address] Dr. Claudia Branch Urea nitrogen/Creatinine [Mass ratio] 24.0 mg/mg Normal [facility] Comment on above: Performed By: #### L IPID, CMP #### [facility] [address] [place] [address] Dr. Claudia Branch GI PANEL (PCR)on 08-11-2022 Adenovirus F 40/41 Not detected Normal NOT DETECTED [facility] Comment on above: Performed By: #### G IPANEL #### [facility] [address] [place] [address] Dr. Claudia Branch Astrovirus Not detected Normal NOT DETECTED [facility] Comment on above: Performed By: #### G IPANEL #### [facility] [address] [place] [address] Dr. Claudia Branch C. Diff toxin A/B Detected Critically abnormal NOT DETECTED [facility] Comment on above: Performed By: #### G IPANEL #### [facility] [address] [place] [address] Dr. Claudia Branch Campylobacter Not detected Normal NOT DETECTED [facility] Comment on above: Performed By: #### G IPANEL #### [facility] [address] [place], [place] [id number] Dr. Claudia Branch Cryptosporidium Not detected Normal NOT DETECTED [facility] Comment on above: Performed By: #### G IPANEL #### [facility] [address] [place] [address] Dr. Claudia Branch Cyclos. Cayetanensis Not detected Normal NOT DETECTED [facility] Comment on above: Performed By: #### G IPANEL #### [facility] [address] [place] [address] Dr. Claudia Branch E. Coli O157 Not Applicable Normal Not Applicable [facility] Comment on above: Performed By: #### G IPANEL #### [facility] [address] [place] [address] Dr. Claudia Branch E. histolytica Not detected Normal NOT DETECTED [facility] Comment on above: Performed By: #### G IPANEL #### [facility] [address] [place] [address] Dr. Claudia Branch EAEC Not detected Normal NOT DETECTED [facility] Comment on above: Performed By: #### G IPANEL #### [facility] [address] [place] [address] Dr. Claudia Branch EIEC Not detected Normal NOT DETECTED [facility] Comment on above: Performed By: #### G IPANEL #### [facility] [address] [place] [address] Dr. Claudia Branch EPEC Not detected Normal NOT DETECTED [facility] Comment on above: Performed By: #### G IPANEL #### [facility] [address] [place] [address] Dr. Claudia Branch ETEC Not detected Normal NOT DETECTED [facility] Comment on above: Performed By: #### G IPANEL #### [facility] [address] [place] [address] Dr. Claudia Dent. Lamblia Not detected Normal NOT DETECTED [facility] Comment on above: Performed By: #### G IPANEL #### [facility] [address] [place] [address] Dr. Claudia Branch GIPANEL CONTROLS PASSED Normal [facility] Comment on above: Performed By: #### G IPANEL #### [facility] [address] [place] [address] Dr. Claudia MCKAY [facility] HEADER GI PANEL BACTERIA Normal [facility] Comment on above: Performed By: #### G IPANEL #### [facility] [address] [address] [address] Claudia RAMIREZ ECOLI GI PANEL DIARRHEAGEN IC E.COLI / SHIGELLA Normal [facility] Comment on above: Performed By: #### G IPANEL #### [facility] [address] [place] [address] Dr. Claudia RAMIREZ INFO SEE BELOW Normal [facility] Comment on above: Result Comment: EAEC - Enteroaggregative E. Coli EPEC- Enteropathogenic E. Coli ETEC- Enterotoxigenic E. Coli lt/st STEC- Shigella-like toxin-producing E. Coli stx1/stx2 EIEC- Shigella/Enteroinvasive E. Coli Performed By: #### G IPANEL #### [facility] [address] [place] [address] Dr. Claudia RAMIREZ PARASITES GI PANEL PARASITES Normal [facility] Comment on above: Performed By: #### G IPANEL #### [facility] [address] [place] [address] Dr. Claudia RAMIREZ VIRUS GI PANEL VIRUSES Normal [facility] Comment on above: Performed By: #### G IPANEL #### [facility] [address] [place] [address] Dr. Claudia Branch Norovirus GI/GII Not detected Normal NOT DETECTED [facility] Comment on above: Performed By: #### G IPANEL #### [facility] [address] [place] [address] Dr. Claudia Branch P. Shigelloides Not detected Normal NOT DETECTED [facility] Comment on above: Performed By: #### G IPANEL #### [facility] [address] [place] [address] Dr. Claudia Branch Rotavirus A Not detected Normal NOT DETECTED [facility] Comment on above: Performed By: #### G IPANEL #### [facility] [address] [address] [address] Claudia Branch Salmonella Not detected Normal NOT DETECTED [facility] Comment on above: Performed By: #### G IPANEL #### [facility] [address] [address] [address] Claudia Branch Sapovirus Not detected Normal NOT DETECTED [facility] Comment on above: Performed By: #### G IPANEL #### [facility] [address] [place] [address] Dr. Claudia Branch STEC Not detected Normal NOT DETECTED [facility] Comment on above: Performed By: #### G IPANEL #### [facility] [address] [address] [address] Claudia Branch Vibrio Not detected Normal NOT DETECTED [facility] Comment on above: Performed By: #### G IPANEL #### [facility] [address] [place] [address] Dr. Claudia Branch Vibrio Cholera Not detected Normal NOT DETECTED [facility] Comment on above: Performed By: #### G IPANEL #### [facility] [address] [place] [address] Dr. Claudia Branch Y. Enterocolitica Not detected Normal NOT DETECTED [facility] Comment on above: Performed By: #### G IPANEL #### [facility] [address] [place] [address] Dr. Claudia Branch Albumin [Mass/volume] in Ser um or PlasmaOrdered By: Rose Ohara on 06-29-2022 Albumin [Mass/Vol] 4.1 g/dL 3.2-5.5 [facility] Basophils Auto (Bld) [#/Vol] Ordered By: Rose Ohara on 06-29-2022 Basophils (Bld) [#/Vol] 0.1 10*3/uL 0.0-0.2 [facility] Basophils/100 WBC Auto (Bld) Ordered By: Rose Ohara on 06-29-2022 Basophils/100 WBC (Bld) 1.2 % . [facility] Blood hemoglobin measurement (mass/volume)Ordered By: Rose Ohara on 06-29-2022 Hemoglobin (Bld) [Mass/Vol] 15.0 g/dL 11.8-15.4 [facility] Blood leukocytes automated c ount (number/volume)Ordered By: Rose Ohara on 06-29-2022 WBC (Bld) [#/Vol] 8.4 10*3/uL 4.5-11.0 [facility] Creatinine and Glomerular fi ltration rate.predicted panel (S/P/Bld)Ordered By: Rose Ohara on 06-29-2022 Creatinine [Mass/Vol] 0.87 mg/dL 0.44-1.03 [facility] Eosinophils Auto (Bld) [#/Vo l]Ordered By: Rose Ohara on 06-29-2022 Eosinophils (Bld) [#/Vol] 0.3 10*3/uL 0.0-0.45 [facility] Eosinophils/100 WBC Auto (Bl d)Ordered By: Rose Ohara on 06-29-2022 Eosinophils/100 WBC (Bld) 3.7 % . [facility] Erythrocyte distribution wid th Auto (RBC) [Ratio]Ordered By: Rose Ohara on 06-29-2022 Erythrocyte distribution width (RBC) [Ratio] 14.9 % 11.9-15.3 [facility] Estimated glomerular filtrat ion rate (GFR) non- AmericanOrdered By: Rose Ohara on 06-29-2022 GFR/1.73 sq M.predicted among non-blacks MDRD (S/P/Bld) [Vol rate/Area] > 60 mL/Min [facility] Globulin Calc (S) [Mass/Vol] Ordered By: Rose Ohara on 06-29-2022 Globulin (S) [Mass/Vol] 3.0 g/dL [facility] Hematocrit Auto (Bld) [Volum e fraction]Ordered By: Rose Ohara on 06-29-2022 Hematocrit (Bld) [Volume fraction] 45.9 % 34.0-46.4 [facility] Laboratory - Hematology and Cell countsOrdered By: Rose Ohara on 06-29-2022 Nucleated RBC/100 WBC (Bld) [Ratio] 0.1 % 0-0.5 [facility] Lactate dehydrogenase measur ement (enzymatic activity/volume)Ordered By: Rose Ohara on 06-29-2022 LDH (Unsp spec) [Catalytic activity/Vol] 131 U/L 45-190 [facility] Lymphocytes Auto (Bld) [#/Vo l]Ordered By: Rose Ohara on 06-29-2022 Lymphocytes (Bld) [#/Vol] 1.6 10*3/uL 1.00-4.8 [facility] Lymphocytes/100 WBC Auto (Bl d)Ordered By: Rose Ohara on 06-29-2022 Lymphocytes/100 WBC (Bld) 18.8 % . [facility] MCH Auto (RBC) [Entitic mass ]Ordered By: Rose Ohara on 06-29-2022 MCH (RBC) [Entitic mass] 29.8 pg 24.7-34.3 [facility] MCHC Auto (RBC) [Mass/Vol]Or dered By: Rose Ohara on 06-29-2022 MCHC (RBC) [Mass/Vol] 32.8 g/dL 32.0-35.0 [facility] MCV Auto (RBC) [Entitic vol] Ordered By: Rose Ohara on 06-29-2022 MCV (RBC) [Entitic vol] 91.0 fL 80-100 [facility] Monocytes Auto (Bld) [#/Vol] Ordered By: Rose Ohara on 06-29-2022 Monocytes (Bld) [#/Vol] 0.8 10*3/uL 0.0-0.8 [facility] Monocytes/100 WBC Auto (Bld) Ordered By: Rose Ohara on 06-29-2022 Monocytes/100 WBC (Bld) 9.5 % . [facility] Neutrophils Auto (Bld) [#/Vo l]Ordered By: Rose Ohara on 06-29-2022 Neutrophils (Bld) [#/Vol] 5.6 10*3/uL 1.8-7.7 [facility] Neutrophils/100 WBC Auto (Bl d)Ordered By: Rose Ohara on 06-29-2022 Neutrophils/100 WBC (Bld) 66.8 % . [facility] No Panel InformationOrdered By: Rose Ohara on 06-29-2022 Estimated GFR () > 60 mL/Min [facility] Comment on above: GFR estimated refere nce range: According to KDOQI guidelines, <60 ml/min/1.73m2 is sufficient to diagnose a patient with chronic kidney disease. Pharmacy Creatinine Clearance (Chem 64.07 [facility] Platelet mean volume Auto (B ld) [Entitic vol]Ordered By: Rose Ohara on 06-29-2022 Platelet mean volume (Bld) [Entitic vol] 7.9 fL 6.3-10.7 [facility] Platelets Auto (Bld) [#/Vol] Ordered By: Rose Ohara on 06-29-2022 Platelets (Bld) [#/Vol] 226 10*3/uL 150-450 [facility] Protein [Mass/volume] in Ser um or PlasmaOrdered By: Rose Ohara on 06-29-2022 Protein [Mass/Vol] 7.1 g/dL 6.1-7.9 [facility] RBC Auto (Bld) [#/Vol]Ordere d By: Rose Ohara on 06-29-2022 RBC (Bld) [#/Vol] 5.04 10*6/uL 3.60-5.00 [facility] Serum or plasma alanine mari otransferase measurement without P-5'-P (enzymatic activiOrdered By: Rose Ohara on 06-29-2022 ALT No additional P-5'-P [Catalytic activity/Vol] 27 U/L 10-60 [facility] Serum or plasma albumin/glob ulin mass ratioOrdered By: Rose Ohara on 06-29-2022 Albumin/Globulin [Mass ratio] 1.4 {ratio} [facility] Serum or plasma alkaline danial sphatase measurement (enzymatic activity/volume)Ordered By: Rose Ohara on 06-29-2022 ALP [Catalytic activity/Vol] 56 U/L 32-92 [facility] Serum or plasma aspartate am inotransferase measurement (enzymatic activity/volume)Ordered By: Rose Ohara on 06-29-2022 AST [Catalytic activity/Vol] 26 U/L 10-42 [facility] Serum or plasma calcium kandi urement (mass/volume)Ordered By: Rose Ohara on 06-29-2022 Calcium [Mass/Vol] 10.2 mg/dL 8.2-10.2 [facility] Serum or plasma chloride florentino surement (moles/volume)Ordered By: Rose Ohara on 06-29-2022 Chloride [Moles/Vol] 102 mmol/L 95-114 [facility] Serum or plasma glucose kandi urement (mass/volume)Ordered By: Rose Ohara on 06-29-2022 Glucose [Mass/Vol] 130 mg/dL 70-100 [facility] Comment on above: ADA recommended refe rence range Random Glucose Reference Range is dependent on time and content of last meal. Glucose of more than 200 mg/dL in a nonstressed, ambulatory subject supports the diagnosis of Diabetes Mellitus. Serum or plasma potassium me asurement (moles/volume)Ordered By: Rose Ohara on 06-29-2022 Potassium [Moles/Vol] 4.9 mmol/L 3.5-5.1 [facility] Serum or plasma sodium measu rement (moles/volume)Ordered By: Rose Ohara on 06-29-2022 Sodium [Moles/Vol] 139 mmol/L 136-146 [facility] Serum or plasma total biliru bin measurement (mass/volume)Ordered By: Rose Ohara on 06-29-2022 Bilirubin [Mass/Vol] 1.2 mg/dL 0.3-1.2 [facility] Serum or plasma total carbon dioxide measurement (moles/volume)Ordered By: Rose Ohara on 06-29-2022 CO2 [Moles/Vol] 24.6 mmol/L 22.0-30.0 [facility] Serum or plasma urea nitroge n measurement (mass/volume)Ordered By: Rose Ohara on 06-29-2022 Urea nitrogen [Mass/Vol] 21 mg/dL 07-30 [facility] BNPon 04-29-2022 Natriuretic peptide B (Bld) [Mass/Vol] 280.0 pg/mL Normal <=900.0 [facility] Comment on above: Performed By: #### B WAREHOUSE STOCK CLERK, BMP #### [facility] [address] [address] [address] Claudia Branch PROF CHEM 8 (BAS METB)on Anion gap [Moles/Vol] 17.9 mmol/L Normal [facility] Comment on above: Performed By: #### B WAREHOUSE STOCK CLERK, BMP #### [facility] [address] [address] [address] Claudia Branch Calcium [Mass/Vol] 8.9 mg/dL Normal 8.5-10.1 [facility] Comment on above: Performed By: #### B WAREHOUSE STOCK CLERK, BMP #### [facility] [address] [place] [address] Dr. Claudia Branch Chloride [Moles/Vol] 104 mmol/L Normal 98-107 [facility] Comment on above: Performed By: #### B WAREHOUSE STOCK CLERK, BMP #### [facility] [address] [place] [address] Dr. Claudia Branch CO2 [Moles/Vol] 23.2 mmol/L Normal 21.0-32.0 [facility] Comment on above: Performed By: #### B WAREHOUSE STOCK CLERK, BMP #### [facility] [address] [place] [address] Dr. Claudia Branch Creatinine [Mass/Vol] 1.04 mg/dL Critically high 0.55-1.02 [facility] Comment on above: Performed By: #### B WAREHOUSE STOCK CLERK, BMP #### [facility] [address] [place] [address] Dr. Claudia Branch EGFR-AF TURKISH >60 Normal >=60 [facility] Comment on above: Performed By: #### B WAREHOUSE STOCK CLERK, BMP #### [facility] [address] [place] [address] Dr. Claudia Branch EGFR-NON AF TURKISH 52 mL/min/1.73m2 Critically low >=60 [facility] Comment on above: Performed By: #### B WAREHOUSE STOCK CLERK, BMP #### [facility] [address] [place] [address] Dr. Claudia Branch Glucose [Mass/Vol] 254 mg/dL Critically high 74-[address] [facility] Comment on above: Performed By: #### B WAREHOUSE STOCK CLERK, BMP #### [facility] [address] [place] [address] Dr. Claudia Branch Potassium [Moles/Vol] 5.1 mmol/L Normal 3.5-5.1 [facility] Comment on above: Performed By: #### B WAREHOUSE STOCK CLERK, BMP #### [facility] [address] [place] [address] Dr. Claudia Branch Sodium [Moles/Vol] 140 mmol/L Normal 136-145 [facility] Comment on above: Performed By: #### B WAREHOUSE STOCK CLERK, BMP #### [facility] [address] [place] [address] Dr. Claudia Branch Urea nitrogen [Mass/Vol] 25.0 mg/dL Critically high 7.0-18.0 [facility] Comment on above: Performed By: #### B WAREHOUSE STOCK CLERK, BMP #### [facility] [address] [place] [address] Dr. Claudia Branch Urea nitrogen/Creatinine [Mass ratio] 24.0 mg/mg Normal [facility] Comment on above: Performed By: #### B WAREHOUSE STOCK CLERK, BMP #### [facility] [address] [place] [address] Dr. Claudia Branch BASIC METABOLIC PANELon 06-0 Calcium [Mass/Vol] 9.7 mg/dL Normal 8.6-10.4 [facility] Comment on above: Performed By: #### 8 99, [id number] #### [facility] [address] [place] [address] Folder Seamer Automatic: Baldemar Jones MD Chloride [Moles/Vol] 106 mmol/L Normal 98-110 [facility] Comment on above: Performed By: #### 8 99, [id number] #### [facility] [address] [place] [address] Folder Seamer Automatic: Baldemar Jones MD CO2 [Moles/Vol] 24 mmol/L Normal 20-32 [facility] Comment on above: Performed By: #### 8 99, [id number] #### [facility] [address] [place] [address] Folder Seamer Automatic: Baldemar Jones MD Creatinine [Mass/Vol] 1.32 mg/dL High 0.60-0.[address] [facility] Comment on above: Result Comment: For patients >49 years of age, the reference limit for Creatinine is approximately 13% higher for people identified as -Gambian. Performed By: #### 8 99, [id number] #### [facility] [address] [place] [address] Folder Seamer Automatic: Baldemar Jones MD eGFR NON-AFR. TURKISH 40 mL/min/1.73m2 Low > OR = 60 [facility] Comment on above: Performed By: #### 8 99, [id number] #### [facility] [address] [place] [address] Folder Seamer Automatic: Baldemar Jones MD GFR/1.73 sq M.predicted among blacks MDRD (S/P/Bld) [Vol rate/Area] 47 mL/min/{1.73_m2} Low > OR = 60 [facility] Comment on above: Performed By: #### 8 99, [id number] #### [facility] [address] [place] [address] Folder Seamer Automatic: Baldemar Jones MD Glucose [Mass/Vol] 99 mg/dL Normal 65-99 [facility] Comment on above: Result Comment: Fasting reference interval Performed By: #### 8 99, [id number] #### [facility] [place] [address] Folder Seamer Automatic: Baldemar Jones MD Potassium [Moles/Vol] 4.6 mmol/L Normal 3.5-5.[address] [facility] Comment on above: Performed By: #### 8 99, [id number] #### [facility] [address] [place] [address] Folder Seamer Automatic: Baldemar Jones MD Sodium [Moles/Vol] 143 mmol/L Normal 135-146 [facility] Comment on above: Performed By: #### 8 99, [id number] #### [facility] [place] [address] Folder Seamer Automatic: Baldemar Jones MD Urea nitrogen [Mass/Vol] 30 mg/dL High 7-25 [facility] Comment on above: Performed By: #### 8 99, [id number] #### [facility] of [address], [address] [place] [address] Folder Seamer Automatic: Baldemar Jones MD Urea nitrogen/Creatinine [Mass ratio] 23 mg/mg High 04-28 [facility] Comment on above: Performed By: #### 8 99, [id number] #### [facility] [address], [address] [place] [address] Folder Seamer Automatic: Baldemar Jones MD TSHon 04-09-2022 TSH Qn 0.67 m[IU]/L Normal 0.40-4.50 [facility] Comment on above: Performed By: #### 8 99, [id number] #### [facility] [address], [address] [place] [address] Folder Seamer Automatic: Baldemar Jones MD Albumin [Mass/volume] in Ser um or PlasmaOrdered By: Rose Ohara on 03-25-2022 Albumin [Mass/Vol] 3.8 g/dL 3.2-5.5 [facility] Basophils Auto (Bld) [#/Vol] Ordered By: Rose Ohara on 03-25-2022 Basophils (Bld) [#/Vol] 0.1 10*3/uL 0.0-0.2 [facility] Basophils/100 WBC Auto (Bld) Ordered By: Rose Ohara on 03-25-2022 Basophils/100 WBC (Bld) 1.1 % [facility] Blood hemoglobin measurement (mass/volume)Ordered By: Rsoe Ohara on 03-25-2022 Hemoglobin (Bld) [Mass/Vol] 14.2 g/dL 11.8-15.4 [facility] Blood leukocytes automated c ount (number/volume)Ordered By: Rose Ohara on 03-25-2022 WBC (Bld) [#/Vol] 7.4 10*3/uL 4.5-11.0 [facility] Creatinine and Glomerular fi ltration rate.predicted panel (S/P/Bld)Ordered By: Rose Ohara on 03-25-2022 Creatinine [Mass/Vol] 1.40 mg/dL 0.44-1.03 [facility] Eosinophils Auto (Bld) [#/Vo l]Ordered By: Rose Ohara on 03-25-2022 Eosinophils (Bld) [#/Vol] 0.2 10*3/uL 0.0-0.45 [facility] Eosinophils/100 WBC Auto (Bl d)Ordered By: Rose Ohara on 03-25-2022 Eosinophils/100 WBC (Bld) 2.6 % [facility] Erythrocyte distribution wid th Auto (RBC) [Ratio]Ordered By: Rose Ohara on 03-25-2022 Erythrocyte distribution width (RBC) [Ratio] 15.1 % 11.9-15.3 [facility] Estimated glomerular filtrat ion rate (GFR) non- AmericanOrdered By: Rose Ohara on 03-25-2022 GFR/1.73 sq M.predicted among non-blacks MDRD (S/P/Bld) [Vol rate/Area] 37 mL/Min [facility] Globulin Calc (S) [Mass/Vol] Ordered By: Rose Ohara on 03-25-2022 Globulin (S) [Mass/Vol] 2.5 g/dL [facility] Hematocrit Auto (Bld) [Volum e fraction]Ordered By: Rose Ohara on 03-25-2022 Hematocrit (Bld) [Volume fraction] 43.3 % 34.0-46.4 [facility] - Hematology and Cell countsOrdered By: Rose Ohara on 03-25-2022 Nucleated RBC/100 WBC (Bld) [Ratio] 0.1 % 0-0.5 [facility] Lactate dehydrogenase measur ement (enzymatic activity/volume)Ordered By: Rose Ohara on 03-25-2022 LDH (Unsp spec) [Catalytic activity/Vol] 111 U/L 45-190 [facility] Lymphocytes Auto (Bld) [#/Vo l]Ordered By: Rose Ohara on 03-25-2022 Lymphocytes (Bld) [#/Vol] 1.7 10*3/uL 1.00-4.8 [facility] Lymphocytes/100 WBC Auto (Bl d)Ordered By: Rose Ohara on 03-25-2022 Lymphocytes/100 WBC (Bld) 22.3 % [facility] MCH Auto (RBC) [Entitic mass ]Ordered By: Rose Ohara on 03-25-2022 MCH (RBC) [Entitic mass] 29.0 pg 24.7-34.3 [facility] MCHC Auto (RBC) [Mass/Vol]Or dered By: Rose Ohara on 03-25-2022 MCHC (RBC) [Mass/Vol] 32.8 g/dL 32.0-35.0 [facility] MCV Auto (RBC) [Entitic vol] Ordered By: Rose Ohara on 03-25-2022 MCV (RBC) [Entitic vol] 88.3 fL 80-100 [facility] Monocytes Auto (Bld) [#/Vol] Ordered By: Rose Ohara on 03-25-2022 Monocytes (Bld) [#/Vol] 0.7 10*3/uL 0.0-0.8 [facility] Monocytes/100 WBC Auto (Bld) Ordered By: Rose Ohara on 03-25-2022 Monocytes/100 WBC (Bld) 9.5 % [facility] Neutrophils Auto (Bld) [#/Vo l]Ordered By: Rose Ohara on 03-25-2022 Neutrophils (Bld) [#/Vol] 4.8 10*3/uL 1.8-7.7 [facility] Neutrophils/100 WBC Auto (Bl d)Ordered By: Rose Ohara on 03-25-2022 Neutrophils/100 WBC (Bld) 64.5 % [facility] No Panel InformationOrdered By: Rose Ohara on 03-25-2022 Estimated GFR () 45 mL/Min [facility] Comment on above: GFR estimated refere nce range: According to KDOQI guidelines, <60 ml/min/1.73m2 is sufficient to diagnose a patient with chronic kidney disease. Pharmacy Creatinine Clearance (Chem 39.92 [facility] Platelet mean volume Auto (B ld) [Entitic vol]Ordered By: Rose Ohara on 03-25-2022 Platelet mean volume (Bld) [Entitic vol] 8.2 fL 6.3-10.7 [facility] Platelets Auto (Bld) [#/Vol] Ordered By: Rose Ohara on 03-25-2022 Platelets (Bld) [#/Vol] 232 10*3/uL 150-450 [facility] Protein [Mass/volume] in Ser um or PlasmaOrdered By: Rose Ohara on 03-25-2022 Protein [Mass/Vol] 6.3 g/dL 6.1-7.9 [facility] RBC Auto (Bld) [#/Vol]Ordere d By: Rose Ohara on 03-25-2022 RBC (Bld) [#/Vol] 4.90 10*6/uL 3.60-5.00 [facility] Serum or plasma alanine mari otransferase measurement without P-5'-P (enzymatic activiOrdered By: Rose Ohara on 03-25-2022 ALT No additional P-5'-P [Catalytic activity/Vol] 23 U/L 10-60 [facility] Serum or plasma albumin/glob ulin mass ratioOrdered By: Rose Ohara on 03-25-2022 Albumin/Globulin [Mass ratio] 1.5 {ratio} [facility] Serum or plasma alkaline danial sphatase measurement (enzymatic activity/volume)Ordered By: Rose Ohara on 03-25-2022 ALP [Catalytic activity/Vol] 43 U/L 32-92 [facility] Serum or plasma aspartate am inotransferase measurement (enzymatic activity/volume)Ordered By: Rose Ohara on 03-25-2022 AST [Catalytic activity/Vol] 18 U/L 10-42 [facility] Serum or plasma calcium kandi urement (mass/volume)Ordered By: Rose Ohara on 03-25-2022 Calcium [Mass/Vol] 9.7 mg/dL 8.2-10.2 [facility] Serum or plasma chloride florentino surement (moles/volume)Ordered By: Rose Ohara on 03-25-2022 Chloride [Moles/Vol] 98 mmol/L 95-114 [facility] Serum or plasma glucose kandi urement (mass/volume)Ordered By: Rose Ohara on 03-25-2022 Glucose [Mass/Vol] 201 mg/dL 70-100 [facility] Comment on above: ADA recommended refe rence range Random Glucose Reference Range is dependent on time and content of last meal. Glucose of more than 200 mg/dL in a nonstressed, ambulatory subject supports the diagnosis of Diabetes Mellitus. Serum or plasma potassium me asurement (moles/volume)Ordered By: Rose Ohara on 03-25-2022 Potassium [Moles/Vol] 4.7 mmol/L 3.5-5.1 [facility] Serum or plasma sodium measu rement (moles/volume)Ordered By: Rose Ohara on 03-25-2022 Sodium [Moles/Vol] 139 mmol/L 136-146 [facility] Serum or plasma total biliru bin measurement (mass/volume)Ordered By: Rose Ohara on 03-25-2022 Bilirubin [Mass/Vol] 1.2 mg/dL 0.3-1.2 [facility] Serum or plasma total carbon dioxide measurement (moles/volume)Ordered By: Rose Ohara on 03-25-2022 CO2 [Moles/Vol] 27.4 mmol/L 22.0-30.0 [facility] Serum or plasma urea nitroge n measurement (mass/volume)Ordered By: Rose Ohara on 03-25-2022 Urea nitrogen [Mass/Vol] 29 mg/dL 9- [facility] TSH DL <= 0.005 mIU/L QnOrde red By: Rose Ohara on 03-25-2022 TSH Qn 0.89 m[IU]/L 0.45-5.33 [facility] BASIC METABOLIC PANELon 04-0 BUN/CREATININE RATIO NOT APPLICABLE Normal 6-22 [facility] Comment on above: Order Comment: FASTI NG:YES FASTING: YES Performed By: #### 4 96, [id number] #### [facility] [address], [address] [place], [place] [id number] Folder Seamer Automatic: Baldemar Jones MD Calcium [Mass/Vol] 9.4 mg/dL Normal 8.6-10.4 [facility] Comment on above: Order Comment: FASTI NG:YES FASTING: YES Performed By: #### 4 96, [id number] #### [facility] [address] [place] [address], [address] Folder Seamer Automatic: Baldemar Jones MD Chloride [Moles/Vol] 101 mmol/L Normal 98-110 [facility] Comment on above: Order Comment: FASTI NG:YES FASTING: YES Performed By: #### 4 96, [id number] #### [facility] [address], [address] [place] [address] Folder Seamer Automatic: Baldemar Jones MD CO2 [Moles/Vol] 31 mmol/L Normal 20-32 [facility] Comment on above: Order Comment: FASTI NG:YES FASTING: YES Performed By: #### 4 96, [id number] #### [facility] [address], [address] [place] [address] Folder Seamer Automatic: Baldemar Jones MD Creatinine [Mass/Vol] 0.84 mg/dL Normal 0.60-0.[address] [facility] [address] [facility] Comment on above: Order Comment: FASTI NG:YES FASTING: YES Result Comment: For patients >49 years of age, the reference limit for Creatinine is approximately 13% higher for people identified as -Gambian. Performed By: #### 4 96, [id number] #### [facility] [address], [address] [place] [address] Folder Seamer Automatic: Baldemar Jones MD eGFR NON-AFR. TURKISH 69 mL/min/1.73m2 Normal > OR = 60 [facility] Comment on above: Order Comment: FASTI NG:YES FASTING: YES Performed By: #### 4 96, [id number] #### [facility] [address], [address] [place] [address] Folder Seamer Automatic: Baldemar Jones MD GFR/1.73 sq M.predicted among blacks MDRD (S/P/Bld) [Vol rate/Area] 80 mL/min/{1.73_m2} Normal > OR = 60 [facility] Comment on above: Order Comment: FASTI NG:YES FASTING: YES Performed By: #### 4 96, [id number] #### [facility] [address], [address] [place] [address] Folder Seamer Automatic: Baldemar Jones MD Glucose [Mass/Vol] 108 mg/dL High 65-99 [facility] Comment on above: Order Comment: FASTI NG:YES FASTING: YES Result Comment: Fasting reference interval For someone without known diabetes, a glucose value between 100 and 125 mg/dL is consistent with prediabetes and should be confirmed with a follow-up test. Performed By: #### 4 96, [id number] #### [facility] [address], [address] [place] [address] Folder Seamer Automatic: Baldemar Jones MD Potassium [Moles/Vol] 4.5 mmol/L Normal 3.5-5.[address] [facility] Comment on above: Order Comment: FASTI NG:YES FASTING: YES Performed By: #### 4 96, [id number] #### [facility] [address], [address] [place] [address] Folder Seamer Automatic: Baldemar Jones MD Sodium [Moles/Vol] 143 mmol/L Normal 135-146 [facility] Comment on above: Order Comment: FASTI NG:YES FASTING: YES Performed By: #### 4 96, [id number] #### [facility] [address], [address] [place] [address] Folder Seamer Automatic: Baldemar Jones MD Urea nitrogen [Mass/Vol] 22 mg/dL Normal 7-25 [facility] Comment on above: Order Comment: FASTI NG:YES FASTING: YES Performed By: #### 4 96, 00082 #### [facility] [address], [address] [place] [address] Folder Seamer Automatic: Baldemar Jones MD HEMOGLOBIN A1con 02-13-2022 HEMOGLOBIN [...] for children. Performed By: #### 4 96, 55085 #### [facility] [address], [address] [place], [place] [id number] Folder Seamer Automatic: Baldemar Jones MD No Panel InformationOrdered By: Bang Nunez on 01-09-2022 Adrenocorticotropic Hormone 39.5 pg/mL 7.2-63.3 [facility] Comment on above: ACTH reference inter bernarda for samples collected between 7 and 10 AM. Performed at: [facility] [id number] Supervisor Gear Repair: Braxton Austin PhD, Phone: [phone] ACTH reference inter bernarda for samples collected between 7 and10 AM.Performed at: [address] [id number] Director: Braxton Austin PhD, Phone: [phone] Thyroxine (T4) free [Mass/vo lume] in Serum or PlasmaOrdered By: Bang Nunez on 01-09-2022 Free T4 [Mass/Vol] 0.81 ng/dL 0.61-1.12 [facility] B TYPE NATRIURETIC PEPTIDE ( BNP)on 12-03-2021 Natriuretic peptide B (Bld) [Mass/Vol] 67 pg/mL Normal <100 [facility] Comment on above: Result Comment: BNP levels increase with age in the general population with the highest values seen in individuals greater than 75 years of age. Reference: J. Am. Jim. Cardiol. 2002; 40:976-982. Performed By: #### 3 7386, 67070 #### [facility] [address], [address] [place] [address] Folder Seamer Automatic: Baldemar Jones MD BASIC METABOLIC PANELon 11-08 Calcium [Mass/Vol] 9.4 mg/dL Normal 8.6-10.4 [facility] Comment on above: Order Comment: FASTI NG:NO FASTING: NO Performed By: #### 3 8486, 28824 #### [facility] [address], [address] [place], [place] [id number] Folder Seamer Automatic: Baldemar Jones MD Chloride [Moles/Vol] 99 mmol/L Normal 98-110 [facility] Comment on above: Order Comment: FASTI NG:NO FASTING: NO Performed By: #### 3 7386, 47674 #### [facility] [address], [address] [place] [address] Folder Seamer Automatic: Baldemar Jones MD CO2 [Moles/Vol] 32 mmol/L Normal 20-32 [facility] Comment on above: Order Comment: FASTI NG:NO FASTING: NO Performed By: #### 3 7386, 75619 #### [facility] [address], [address] [place] [address] Folder Seamer Automatic: Baldemar Jones MD Creatinine [Mass/Vol] 0.90 mg/dL Normal 0.60-0.[address] [facility] [address] [facility] Comment on above: Order Comment: FASTI NG:NO FASTING: NO Result Comment: For patients >49 years of age, the reference limit for Creatinine is approximately 13% higher for people identified as -Gambian. Performed By: #### 3 7386, 38437 #### [facility] [address], [address] [place] [address] Folder Seamer Automatic: Baldemar Jones MD eGFR NON-AFR. TURKISH 64 mL/min/1.73m2 Normal > OR = 60 [facility] Comment on above: Order Comment: FASTI NG:NO FASTING: NO Performed By: #### 3 7386, 18991 #### [facility] [address], [address] [place] [address] Folder Seamer Automatic: Baldemar Jones MD GFR/1.73 sq M.predicted among blacks MDRD (S/P/Bld) [Vol rate/Area] 75 mL/min/{1.73_m2} Normal > OR = 60 [facility] Comment on above: Order Comment: FASTI NG:NO FASTING: NO Performed By: #### 3 7386, 75777 #### [facility] [address], [address] [place] [address] Folder Seamer Automatic: Baldemar Jones MD Glucose [Mass/Vol] 174 mg/dL High 65-139 [facility] Comment on above: Order Comment: FASTI NG:NO FASTING: NO Result Comment: Non-fasting reference interval For someone without known diabetes, a glucose value >125 mg/dL indicates that they may have diabetes and this should be confirmed with a follow-up test. Performed By: #### 3 7386, 15985 #### [facility] [address], [address] [place] [address] Folder Seamer Automatic: Baldemar Jones MD Potassium [Moles/Vol] 3.7 mmol/L Normal 3.5-5.3 [facility] Comment on above: Order Comment: FASTI NG:NO FASTING: NO Performed By: #### 3 7386, 15240 #### [facility] [place] [address] Folder Seamer Automatic: Baldemar Jones MD Sodium [Moles/Vol] 143 mmol/L Normal 135-146 [facility] [employer] Comment on above: Order Comment: FASTI NG:NO FASTING: NO Performed By: #### 3 7386, 33648 #### [facility] [address], [address] [place] [address] Folder Seamer Automatic: Baldemar Jones MD Urea nitrogen [Mass/Vol] 35 mg/dL High 7-25 [facility] Comment on above: Order Comment: FASTI NG:NO FASTING: NO Performed By: #### 3 7386, 31532 #### [facility] [place] [address] Folder Seamer Automatic: Baldemar Jones MD Urea nitrogen/Creatinine [Mass ratio] 39 mg/mg High 6-22 [facility] Comment on above: Order Comment: FASTI NG:NO FASTING: NO Performed By: #### 3 7386, 00415 #### [facility] [place] [address] Folder Seamer Automatic: Baldemar Jones MD ALBUMIN, RANDOM URINE W/KATHARINE Kang 10-02-2021 ALBUMIN, URINE 0.9 mg/dL Normal See Note: [facility] Comment on above: Result Comment: Refe rence Range: Reference Range Not established Performed By: #### 7 600, 6517, 93104 #### [facility] of [address], [address] [place] [address] Folder Seamer Automatic: Baldemar Jones MD ALBUMIN/CREATININE RATIO, RANDOM URINE [...] category. Performed By: #### 7 600, 6517, 44004 #### [facility] [address], [address] [place] [address] Folder Seamer Automatic: Baldemar Jones MD Creatinine (U) [Mass/Vol] 69 mg/dL Normal 20-275 [facility] Comment on above: Performed By: #### 7 600, 6517, 09254 #### [facility] [address], [address] [place] [address] Folder Seamer Automatic: Baldemar Jones MD [facility] 10-02-2021 Albumin [Mass/Vol] 4.4 g/dL Normal 3.6-5.1 [facility] Comment on above: Performed By: #### 7 600, 6517, 93062 #### [facility] of [place] [address] Folder Seamer Automatic: Baldemar Jones MD Albumin/Globulin [Mass ratio] 1.7 {ratio} Normal 1.0-2.5 [facility] Comment on above: Performed By: #### 7 600, 6517, 48020 #### [facility] of [place] [address] Folder Seamer Automatic: Baldemar Jones MD ALP [Catalytic activity/Vol] 50 U/L Normal 37-153 [facility] Comment on above: Performed By: #### 7 600, 6517, 02039 #### [facility] [address], [address] [place] [address] Folder Seamer Automatic: Baldemar Jones MD ALT [Catalytic activity/Vol] 15 U/L Normal 6-29 [facility] Comment on above: Performed By: #### 7 600, 6517, 74713 #### [facility] of [place] [address] Folder Seamer Automatic: Baldemar Jones MD AST [Catalytic activity/Vol] 15 U/L Normal 10-35 [facility] Comment on above: Performed By: #### 7 600, 6517, 31060 #### [facility] of [address], [address] [place] [address] Folder Seamer Automatic: Baldemar Jones MD Bilirubin [Mass/Vol] 1.2 mg/dL Normal 0.2-1.2 [facility] Comment on above: Performed By: #### 7 600, 6517, 27451 #### [facility] of [place] [address] Folder Seamer Automatic: Baldemar Jones MD BUN/CREATININE RATIO NOT APPLICABLE Normal 6-22 [facility] Comment on above: Performed By: #### 7 600, 6517, 54658 #### [facility] of [place] [address] Folder Seamer Automatic: Baldemar Jones MD Calcium [Mass/Vol] 9.6 mg/dL Normal 8.6-10.4 [facility] Comment on above: Performed By: #### 7 600, 6517, 02102 #### [facility] of [place] [address] Folder Seamer Automatic: Baldemar Jones MD Chloride [Moles/Vol] 103 mmol/L Normal 98-110 [facility] Comment on above: Performed By: #### 7 600, 6517, 99787 #### [facility] of [place] [address] Folder Seamer Automatic: Baldemar Jones MD CO2 [Moles/Vol] 27 mmol/L Normal 20-32 [facility] Comment on above: Performed By: #### 7 600, 6517, 04603 #### [facility] of [address] [address] Folder Seamer Automatic: Baldemar Jones MD Creatinine [Mass/Vol] 0.81 mg/dL Normal 0.60-0.[address] [facility] [address] [facility] Comment on above: Result Comment: For patients >49 years of age, the reference limit for Creatinine is approximately 13% higher for people identified as -Gambian. Performed By: #### 7 600, 6517, 04426 #### [facility] [address], [address] [place] [address] Folder Seamer Automatic: Baldemar Jones MD eGFR NON-AFR. TURKISH 73 mL/min/1.73m2 Normal > OR = 60 [facility] Comment on above: Performed By: #### 7 600, 6517, 50233 #### [facility] [address], [address] [place] [address] Folder Seamer Automatic: Baldemar Jones MD GFR/1.73 sq M.predicted among blacks MDRD (S/P/Bld) [Vol rate/Area] 85 mL/min/{1.73_m2} Normal > OR = 60 [facility] Comment on above: Performed By: #### 7 600, 6517, 36435 #### [facility] [address], [address] [place] [address] Folder Seamer Automatic: Baldemar Jones MD Globulin (S) [Mass/Vol] 2.6 g/dL Normal 1.9-3.7 [facility] Comment on above: Performed By: #### 7 600, 6517, 38462 #### [facility] [address], [address] [place] [address] Folder Seamer Automatic: Baldemar Jones MD Glucose [Mass/Vol] 109 mg/dL High 65-99 [facility] Comment on above: Result Comment: Fasting reference interval For someone without known diabetes, a glucose value between 100 and 125 mg/dL is consistent with prediabetes and should be confirmed with a follow-up test. Performed By: #### 7 600, 6517, 17489 #### [facility] [address], [address] [place] [address] Folder Seamer Automatic: Baldemar Jones MD Potassium [Moles/Vol] 4.1 mmol/L Normal 3.5-5.[address] [facility] Comment on above: Performed By: #### 7 600, 6517, 31741 #### [facility] of [address], [address] [place] [address] Folder Seamer Automatic: Baldemar Jones MD Protein [Mass/Vol] 7.0 g/dL Normal 6.1-8.1 [facility] Comment on above: Performed By: #### 7 600, 6517, 10926 #### [facility] of [address], [address] [place] [address] Folder Seamer Automatic: Baldemar Jones MD Sodium [Moles/Vol] 143 mmol/L Normal 135-146 [facility] Comment on above: Performed By: #### 7 600, 65, 72609 #### [facility] of [address], [address] [place] [address] Folder Seamer Automatic: Baldemar Jones MD Urea nitrogen [Mass/Vol] 19 mg/dL Normal 7-25 [facility] Comment on above: Performed By: #### 7 600, 65, 98331 #### [facility] of [place] [address] Folder Seamer Automatic: Baldemar Jones MD LIPID PANEL, [place] [address]2 Cholesterol [Mass/Vol] 106 mg/dL Normal <200 [facility] Comment on above: Order Comment: FASTI NG:YES FASTING: YES Performed By: #### 7 600, 6517, 89985 #### [facility] of [address], [address] [place] [address] Folder Seamer Automatic: Baldemar Jones MD Cholesterol in HDL [Mass/Vol] 44 mg/dL Low > OR = 50 [facility] Comment on above: Order Comment: FASTI NG:YES FASTING: YES Performed By: #### 7 600, 6517, 98273 #### [facility] of [address], [address] [place] [address] Folder Seamer Automatic: Baldemar Jones MD Cholesterol in LDL [Mass/Vol] [...] LDL-C. Theo SS et al. KEZIA. 2013;310(19): 3166-7325 (http://education.77 Pieces.Acceptd/faq/FBH298) Performed By: #### 7 600, 6517, 47886 #### [facility] [address], [address] [place] [address] Folder Seamer Automatic: Baldemar Jones MD Cholesterol.total/Chol esterol in HDL [Mass ratio] 2.4 {ratio} Normal <5.0 [facility] Comment on above: Order Comment: FASTI NG:YES FASTING: YES Performed By: #### 7 600, 6517, 10604 #### [facility] [address], [address] [place] [address] Folder Seamer Automatic: Baldemar Jones MD NON HDL CHOLESTEROL 62 mg/dL (calc) Normal <130 [facility] Comment on above: Order Comment: FASTI NG:YES FASTING: YES Result Comment: For patients with diabetes plus 1 major ASCVD risk factor, treating to a non-HDL-C goal of <100 mg/dL (LDL-C of <70 mg/dL) is considered a therapeutic option. Performed By: #### 7 600, 6517, 66241 #### [facility] [address], [address] [place] [address] Folder Seamer Automatic: Baldemar Jones MD Triglyceride [Mass/Vol] 185 mg/dL High <150 [facility] Comment on above: Order Comment: FASTI NG:YES FASTING: YES Performed By: #### 7 600, 6517, 58424 #### [facility] [address], [address] [place] [address] Folder Seamer Automatic: Baldemar Jones MD Laboratory - Chemistry and C hemistry - challengeOrdered By: Rose Ohara on 08-17-2021 Lipase [Catalytic activity/Vol] 27.0 U/L 22-51 [facility] Random cortisol measurementO rdered By: Rose Ohara on 08-17-2021 Cortisol [Mass/Vol] 10.1 ug/dL [facility] Comment on above: Reference range: AM 6 - 24 ug/dl PM <10 ug/dl Reference range: AM 6 - 24 ug/dl PM <10 ug/dl Creatinine (Bld) [Mass/Vol]O rdered By: Bang Nunez on 06-19-2021 Creatinine [Mass/Vol] 0.6 mg/dL 0.6-1.3 [facility] Comment on above: ER/ESD physician is notified/shown all ISTAT results. Critical values may be confirmed by laboratory testing if deemed necessary by ER attending doctor. ER/ESD physician is notified/shown all ISTAT results.Critical values may be confirmed by laboratory testing ifdeemed necessary by ER attending doctor. No Panel InformationOrdered By: Bang Nunez on 06-19-2021 POC Estimated GFR > 60 [facility] Comment on above: GFR estimated refere nce range: According to KDOQI guidelines, <60 ml/min/1.73m2 is sufficient to diagnose a patient with chronic kidney disease. POC Estimated GFR Non- Amer > 60 [facility] Glucose Glucometer (BldC) [M ass/Vol]Ordered By: Bang Nunez on 06-17-2021 Glucose [Mass/Vol] 124 mg/dL [facility] Comment on above: Random Glucose Refer ence Range is dependent on time and content of last meal. Glucose of more than 200 mg/dL in a nonstressed, ambulatory subject supports the diagnosis of Diabetes Mellitus. COVID-19 Positive/Negativeon 02-13-2021 SARS-CoV-2 (COVID-19) N gene KIP+probe Ql (Resp) Negative Negative [facility] Comment on above: Reference: Negative Testing for SARS-CoV-2 by RT-PCR This test was developed and its performance characteristics determined by [employer] and validated at the [facility]. This test has not been FDA cleared [...] and its performance characteristics determined by [employer] and validated at the [facility]. This test has not been FDA cleared [...] (COVID-19) RNA KIP+probe Ql (Unsp spec) N/A [facility] No Panel Informationon 12-22 Bedside Glucose Comment Glu2: cleaned meter [facility] Dermatopathologyon 1 Dermatopathology [facility] Dermatopathology Laboratory [address] [place] [id number] DERMATOPATHOLOGY REPORT Name:TOSHA MCNEAL [facility]. Rec #. [id number] Location: Date of Procedure: 11/28/2020 Race: Date [...] control slides stain appropriately. The prior biopsy [id number] was received and reviewed. The morphology is [...] determined by the Department of Pathology at [facility]. The FDA does not require this test [...] A: Non sentinal lymph node. Excision. B: [place] Lymph node count 1005. (Hospital Outpatient) Specimens Submitted As: A: NODE, RIGHT AXILLARY NON-SENTINEL LYMPH NODE B: NODE, RIGHT AXILLARY SENTINEL LYMPH NODE COUNT 1005 Gross Description: A: Received in formalin is a ackerman-yellow irregularly shaped piece of tissue measuring [id number]. The specimen is inked and embedded in toto. B: Received in formalin is one ackerman-yellow irregularly shaped piece of tissue measuring [id number]. The specimen is inked and embedded in toto in three blocks. ink/12/01/2020 Microscopic Description: A. Microscopic examination reveals a lymph node with normal architecture. No melanoma is seen on H and E staining. Melan-A, SOX-10, and HMB45 stains are unremarkable. All control slides stain appropriately. Normal [facility] Comment on above: Performed By: #### D #### Dermatopathology GLUCOSE-POCTon 11-28-2020 Glucose [Mass/Vol] 136 mg/dL High 74 - 99 [facility] Comment on above: Performed By: #### G WAYNE #### [facility] [address] [address] [place] [address] Glucose [Mass/Vol] 135 mg/dL High 74 - 99 [facility] Work Phone: Comment on above: Performed By: #### G WAYNE #### [address] [place] [address] History and Physical - Surge ry > 30 dayson 11-28-2020 History and Physical - Surgery > 30 days History of Present Illness: History Present Illness: Reason for surgery: melanoma 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 COMPARISON: None. ACCESSION NUMBER(S): [id number] ORDERING CLINICIAN: CEDRICK BERGER TECHNIQUE: DIVISION OF [...] lymph node localization to the right axilla. Manager Report images were sent to PACS. I personally reviewed the images/study and I agree with the findings as stated. This study was interpreted at [facility], [place], [place]. Electronically signed by: RICKI SALGADO MD Normal [facility] Patient Profile - Adult v2on 11-28-2020 Patient Profile - Adult v2 This report has been cancelled. Normal [facility] Patient Profile - Preop v2on 11-28-2020 Patient Profile - Preop v2 Profile: Initial Info: How to be AddressedSUZANNE(1) Spoken Language PreferredEnglish (1) Source of Informationpatient Are you currently using the Personal Electronic Health Record or GLO ScienceST. [facility]ICAL CENTERyes Stated Reason for Admissioninjection in my lymph nodes Primary Contact Name and Numberharry-spouse Limitations on Visitors/Phone Callsonly spouse may visit Patient Belongingsremains with patient; patient educated regarding responsibility for personal items Patient Belongings Remaining with Patientclothing; vision aids; dental appliance Medications Brought to Hospitalno General Health: Weight in kg94.2 kilogram(s) Weight in npm993.6 pound(s) Weight Methodactual (measured) Scale Typechair Height [...] Arrangementshouse Lives Withspouse Resource/Environmental Concernsnone Anticipated Transition [place] [facility] Anticipated at Transitionnone Substance: Current or [...] instruction; written material Cultural Considerationsnone Developmental Considerationsnone Faith Considerationsnone Other learner availableno [place] RiskPatient location auto qualifies him/her for HIGH RISK. Are there any cultural, spiritual, sikhism practices/values/needs that are important for us to [...] Profile - Adult v2 28-Nov-2020 07:19 Normal [facility] Preop Checkliston 11-28-2020 Preop Checklist Preop Checklist: Preop Checklist: Arrival [id number] Arrival Time07:00 Procedure Typeinjection of right arm excision scar Heart Rate65 beats per minute Respiratory Rate16 breath per minute Blood Pressure Rkhklcla366 mm/Hg Blood Pressure Uveowbkpz95 mm/Hg NPO [id number] 10:30 ID Band Onyes Allergy Bandno known [...] 28-Nov-2020 07:26 by Evelin Lovett (RN) Normal [facility] CORONAVIRUS 2019, SCREEN ASY MPTOMATICon 11-26-2020 SARS-CoV-2 (COVID-19) RNA KIP+probe Ql (Unsp spec) Not detected Normal Not Detected [facility] Comment on above: Result Comment: . This [...] patient management decisions. Fact sheet for providers: https://www.fda.gov/media/828185/download Fact sheet for patients: https://www.fda.gov/media/191391/download This test has received FDA Emergency Use Authorization (EUA) and has been verified by [facility] ([facility]). This test is only authorized for the duration of time that circumstances exist to justify the authorization of the emergency use of in vitro diagnostic tests for the detection of SARS-CoV-2 virus and/or diagnosis of COVID-19 infection under section 564(b)(1) of the Act, 21 U.S.C. 360bbb-3(b)(1), unless the authorization is terminated or revoked sooner. [facility] is certified under CLIA-88 as qualified to perform high complexity testing. Testing is performed in the [facility] laboratories located at [address] [place] [address]. Performed By: #### C OVSC #### [place] [address] Lab Specimen Source Nasal, Nasopharyngeal Normal [facility] Comment on above: Performed By: #### C OVSC #### [facility] [id number] [place] [address] Coronavirus 2019 RNA by PCR, Screening Asymptomticon 11-26-2020 Coronavirus 2019 RNA by PCR, Screening Asymptomtic NOT DETECTED See Below [facility] Work Phone: Comment on above: SOURCE: Nasal, [...] make patient management decisions.Fact sheet for providers: https://www.fda.gov/media/701251/downloadFact sheet for patients: https://www.fda.gov/media/668543/downloadThis test has received FDA Emergency Use Authorization (EUA) and has been verified by [facility] ([facility]). This test is only authorized for the duration of time that circumstances exist to justify the authorization of the emergency use of in vitro diagnostic tests for the detection of SARS-CoV-2 virus and/or diagnosis of COVID-19 infection under section 564(b)(1) of the Act, 21 U.S.C. 360bbb-3(b)(1), unless the authorization is terminated or revoked sooner. [facility] is certified under CLIA-88 as qualified to perform high complexity testing. Testing is performed in the [facility] laboratories located at [address] [place] [address]. Covid 19 Resultson 1 SARS-CoV-2 (COVID-19) RNA [...] You may also be contacted by the [facility] to see if any of your close [...] or Naproxen (Aleve) can also be used. Giem-wgk-qhzqzuq cough and cold medicines can be used according to the instructions on the package. Some jlgx-rdx-cuxekfu medicines also contain acetaminophen. Make sure you [...] water are not available, use alcohol-based hand radio intelligence operator. Avoid touching your eyes, nose, and mouth [...] ibuprofen (Motrin) (more content not included)... Normal [facility] BASIC METABOLIC PANELon 11-07 Anion gap [Moles/Vol] 15 mmol/L Normal 10 - 20 [facility] Comment on above: Performed By: #### B #### [address] [address] Calcium [Mass/Vol] 9.7 mg/dL Normal 8.6 - 10.3 [facility] Comment on above: Performed By: #### B MP #### [address] [address] Chloride [Moles/Vol] 99 mmol/L Normal 98 - 107 [facility] Comment on above: Performed By: #### B MP #### [address] [address] Creatinine [Mass/Vol] 0.64 mg/dL Normal 0.50 - 1.05 [facility] Comment on above: Performed By: #### B MP #### [address] [address] GFR- AM. >60 Normal >60 [facility] Comment on above: Result Comment: CALC ULATIONS OF ESTIMATED GFR ARE PERFORMED USING THE MDRD STUDY EQUATION FOR THE IDMS-TRACEABLE CREATININE METHODS. CLIN CHEM 2007;53:766-72 Performed By: #### B MP #### [address] [address] GFR-NON AM. >60 Normal >60 [facility] Comment on above: Performed By: #### B MP #### [address] [address] Glucose [Mass/Vol] 105 mg/dL High 74 - 99 [facility] [facility] [place] Comment on above: Performed By: #### B MP #### [address] [address] HCO3 (Bld) [Moles/Vol] 30 mmol/L Normal 21 - 32 [facility] Comment on above: Performed By: #### B MP #### [address] [address] Potassium [Moles/Vol] 3.7 mmol/L Normal 3.5 - 5.3 [facility] [place] Comment on above: Performed By: #### B MP #### [address] [address] Sodium [Moles/Vol] 140 mmol/L Normal 136 - 145 [facility] [place] Comment on above: Performed By: #### B MP #### [facility] [place] [address] [place] [address] Urea nitrogen [Mass/Vol] 18 mg/dL Normal 6 - 23 [facility] [place] Comment on above: Performed By: #### B MP #### [facility] [place] [address] [facility] [place] [address] Metabolic Panelon 11-21-2020 Anion gap [Moles/Vol] 15 mmol/L 10 - 20 MG- SurgeryS [facility] Work Phone: Comment on above: Ordering Provider: Daniela REBOLLEDO [address] Calcium [Mass/Vol] 9.7 mg/dL 8.6 - 10.3 [facility] Work Phone: Comment on above: Ordering Provider: Daniela REBOLLEDO [address] Chloride [Moles/Vol] 99 mmol/L 98 - 107 [facility] Work Phone: Comment on above: Ordering Provider: Daniela REBOLLEDO [address] CO2 [Moles/Vol] 30 mmol/L 21 - 32 MG-Surger y-S [facility] Work Phone: Comment on above: Ordering Provider: Daniela REBOLLEDO [address] Creatinine [Mass/Vol] 0.64 mg/dL See Below MG- SurgeryS [facility] Work Phone: Comment on above: Reference Range: 0.5 0 - 1.05 Ordering Provider: Daniela REBOLLEDO [address] Glucose [Mass/Vol] 105 mg/dL above high threshold 74 - 99 OG-Aamleyf-A [facility] Work Phone: Comment on above: Ordering Provider: Daniela REBOLLEDO [address] Potassium [Moles/Vol] 3.7 mmol/L 3.5 - 5.3 [facility] Work Phone: Comment on above: Ordering Provider: Daniela REBOLLEDO [address] Sodium [Moles/Vol] 140 mmol/L 136 - 145 [facility]-Eagle cinda-S [facility] Work Phone: [phone] Comment on above: Ordering Provider: Daniela REBOLLEDO [address] Urea nitrogen [Mass/Vol] 18 mg/dL 6 - 23 RI-Jfagtwp-M [facility] Work Phone: [phone] Comment on above: Ordering Provider: Daniela LUND KESHA [address] Otheron 11-21-2020 >60 >60 PO-Gwfrxif-W [facility] Work Phone: [phone] Comment on above: CALCULATIONS OF ASHA MATED GFR ARE PERFORMED USING THE MDRD STUDY EQUATION FOR THE IDMS-TRACEABLE CREATININE METHODS. CLIN CHEM 2007;53:766-72 Ordering Provider: Daniela HOWARDIndia KESHA [address] [phone] QW-Blxibrd-F [facility] Work Phone: [phone] GY-Ypfmayv-D [facility] Work Phone: [phone] Sinus rhythm with 1s t degree AV block KA-Xibcmel-I [facility] Work Phone: [phone] [email or web address] ?RetrieveTestByDateTime?P [email or web address]=[email or web address]&Date=1 03-07-2021&Time=11%3a49%3a 35%3a00&TestType=ECG&Site =12&OutputType=PDF&Ext=PD F SB-Evhtnjm-S [facility] Work Phone: [phone] CI-Aumfdpt-S [facility] Work Phone: [phone] PF-Xnnzqqa-H [facility] Work Phone: [phone] AX-Jutatjz-L [facility] Work Phone: [phone] WT-Ydfqkwp-F [facility] Work Phone: [phone] FO-Jbjjwao-D [facility] Work Phone: [phone] HZ-Hureosc-Y [facility] Work Phone: [phone] DD-Tnndngl-K [facility] Work Phone: 1 HX-Hgkkgfr-Q [facility] Work Phone: [phone] JV-Ixoghyb-A [facility] Work Phone: [phone] YS-Tneltmy-WF[facility] Work Phone: [phone] [facility] Work Phone: Abnormal BQ-Qcdbmju-WF[facility] Work Phone: Initial Visit (General Surge ry)on [...] be. We will plan for [place] [facility]. Preadmission testing will [...] visit. Right arm melanoma History of Present [id number]-stb woman referred to me by Dr. Nunez [...] history never smoker, , [facility] the [facility] Medications include Ocuvite eyedrops, alendronate, amlodipine, carvedilol, [...] Facility 12-23-2023 09:37-0500 Body height 152.4 cm [facility] Phone: [employer] 12-23-2023 09:37-0500 Body mass index (BMI) [Ratio] 41.46 kg/m2 [facility] Phone: [facility] 12-23-2023 09:37-0500 Body temperature 98.49 [degF] [facility] Phone: [facility] 12-23-2023 09:37-0500 Body weight 96.3 kg [facility] Phone: [employer] 12-23-2023 09:37-0500 Diastolic blood pressure 50 mm[Hg] [facility] Phone: [facility] 12-23-2023 09:37-0500 Heart rate 65 /min [facility] Phone: [facility] 12-23-2023 09:37-0500 SaO2% (BldA) [Mass fraction] 95 % Wild Furlong DO Work Phone: [facility] 12-23-2023 09:37-0500 Systolic blood pressure 140 mm[Hg] Wild Furlong DO Work Phone: [facility] 12-15-2023 10:17-0500 Body height 152.4 cm DO Wild Furlong Work Phone: [facility] 12-15-2023 10:17-0500 Body mass index (BMI) [Ratio] 41 kg/m2 DO Wild Furlong Work Phone: [facility] 12-15-2023 10:17-0500 Body temperature 97.3 [degF] DO Wild Furlong Work Phone: [facility] 12-15-2023 10:17-0500 Body weight 95.25 kg DO Wild Furlong Work Phone: [facility] 12-15-2023 10:17-0500 Diastolic blood pressure 73 mm[Hg] DO Wild Furlong Work Phone: [facility] 12-15-2023 10:17-0500 Heart rate 55 /min DO Wild Furlong Work Phone: [facility] 12-15-2023 10:17-0500 Respiratory rate 16 /min DO Wild Furlong Work Phone: [facility] 12-15-2023 10:17-0500 Systolic blood pressure 150 mm[Hg] DO Wild Furlong Work Phone: [facility] 08-11-2023 10:23-0400 Body temperature 97.2 [degF] DO Wild Furlong Work Phone: [facility] 08-11-2023 10:23-0400 Body weight 99.79 kg DO Wild Furlong Work Phone: [facility] 08-11-2023 10:23-0400 Diastolic blood pressure 77 mm[Hg] DO Wild Furlong Work Phone: [facility] 08-11-2023 10:23-0400 Heart rate 56 /min DO Wild Furlong Work Phone: [facility] 08-11-2023 10:23-0400 Respiratory rate 16 /min DO Wild Furlong Work Phone: [facility] 08-11-2023 10:23-0400 SaO2% (BldA) [Mass fraction] 95 % DO Wild Furlong Work Phone: [facility] 08-11-2023 10:23-0400 Systolic blood pressure 155 mm[Hg] DO Wild Furlong Work Phone: [facility] 04-13-2023 09:19-0400 Body temperature 97.9 [degF] DO Wild Furlong Work Phone: [facility] 04-13-2023 09:19-0400 Body weight 99.33 kg DO Wild Furlong Work Phone: [facility] 04-13-2023 09:19-0400 Diastolic blood pressure 67 mm[Hg] DO Wild Furlong Work Phone: [facility] 04-13-2023 09:19-0400 Heart rate 64 /min DO Wild Furlong Work Phone: [facility] 04-13-2023 09:19-0400 Respiratory rate 16 /min DO Wild Furlong Work Phone: [facility] 04-13-2023 09:19-0400 SaO2% (BldA) [Mass fraction] 97 % DO Wild Furlong Work Phone: [facility] 04-13-2023 09:19-0400 Systolic blood pressure 148 mm[Hg] DO Wild Furlong Work Phone: [facility] 09-23-2022 08:25-0500 Body temperature 97.8 [degF] DO Wild Furlong Work Phone: [facility] 09-23-2022 08:25-0500 Body weight 99.9 kg DO Wild Furlong Work Phone: [facility] 09-23-2022 08:25-0500 Diastolic blood pressure 66 mm[Hg] DO Wild Furlong Work Phone: [facility] 09-23-2022 08:25-0500 Heart rate 68 /min DO Wild Furlong Work Phone: [facility] 09-23-2022 08:25-0500 Respiratory rate 16 /min DO Wild Furlong Work Phone: [facility] 09-23-2022 08:25-0500 SaO2% (BldA) [Mass fraction] 94 % DO Wild Furlong Work Phone: [facility] 09-23-2022 08:25-0500 Systolic blood pressure 153 mm[Hg] DO Wild Furlong Work Phone: [facility] 07-01-2022 10:32-0400 Body temperature 97.8 [degF] DO Wild Furlong Work Phone: [facility] 07-01-2022 10:32-0400 Body weight 99.33 kg DO Wild Furlong Work Phone: [facility] 07-01-2022 10:32-0400 Diastolic blood pressure 75 mm[Hg] DO Wild Furlong Work Phone: [facility] 07-01-2022 10:32-0400 Heart rate 55 /min DO Wild Furlong Work Phone: [facility] 07-01-2022 10:32-0400 Respiratory rate 16 /min DO Wild UGElong Work Phone: [facility] 07-01-2022 10:32-0400 SaO2% (BldA) [Mass fraction] 98 % DO Wild Furlong Work Phone: [facility] 07-01-2022 10:32-0400 Systolic blood pressure 154 mm[Hg] DO Wild Furlong Work Phone: [facility] 03-31-2022 13:24-0400 Body temperature 97 [degF] DO WildI Move Youlong Work Phone: [facility] 03-31-2022 13:24-0400 Body weight 98.42 kg DO Wild UGElong Work Phone: [facility] 03-31-2022 13:24-0400 Diastolic blood pressure 74 mm[Hg] DO Wild UGElong Work Phone: [facility] 03-31-2022 13:24-0400 Heart rate 62 /min DO WildI Move Youlong Work Phone: [facility] 03-31-2022 13:24-0400 Respiratory rate 16 /min DO WildI Move Youlong Work Phone: [facility] 03-31-2022 13:24-0400 SaO2% (BldA) [Mass fraction] 96 % DO WildI Move Youlong Work Phone: [facility] 03-31-2022 13:24-0400 Systolic blood pressure 150 mm[Hg] DO WildI Move Youlong Work Phone: [facility] 10-01-2020 10:47-0500 Body height 157.99 cm DO Wild UGElong Work Phone: [facility] 1949 00:00-0500 >na< Obdulio Flowers Dept. of Adriano matology Encounters Encounter Date Encounter Type Care Provider Facility Start: 12-26-2023 End: 12-26-2023 ambulatory IRMA CORTEZ Not Available Start: 12-26-2023 Refill Wild recinos DO Work Phone: [facility] Start: 12-23-2023 End: 12-23-2023 ambulatory WILD CENTENO [facility] Start: 12-23-2023 End: 12-23-2023 Office outpatient visit 15 minutes Wild Centeno DO Work Phone: [facility] Comment on above: Acute gout due to re nal impairment involving toe of right foot (Primary Dx); 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 ([facility]) Start: 12-21-2023 End: 12-22-2023 ambulatory IRMA CORTEZ Not Available Start: 12-21-2023 End: 12-21-2023 Admission to same day surgery center Irma Cortez [facility] Comment on above: Aftercare following left knee joint replacement surgery (Primary Dx); Acute pain of left knee; Stiffness of left knee; Primary osteoarthritis of left knee Start: 12-21-2023 End: 12-21-2023 ambulatory Irma Cortez [facility] Start: 12-21-2023 Bamboo flowsheet Irma Cortez [facility] Start: 12-21-2023 Bamboo flowsheet Irma Cortez [facility] Start: 12-19-2023 End: 12-19-2023 Admission to same day surgery center Shan Haskins [facility] Comment on above: Aftercare following left knee joint replacement surgery (Primary Dx); Acute pain of left knee; Stiffness of left knee; Primary osteoarthritis of left knee Start: 12-19-2023 End: 12-20-2023 ambulatory Shan Haskins [facility] Start: 12-19-2023 Bamboo flowsheet Shan Haskins PT A [facility] Start: 12-19-2023 Bamboo flowsheet Shan Haskins PT A [facility] Start: 12-15-2023 End: 12-15-2023 Patient encounter procedure DO Wild Furlong [facility] Work Phone: Start: 12-15-2023 End: 12-15-2023 ambulatory DO Wild Furlong Work Phone: [facility] Work Phone: Start: 12-15-2023 Registered Recurring DO Wild Furlong [facility] Phone: [facility] Work Phone: Start: 12-14-2023 End: 12-14-2023 ambulatory IRMA CORTEZ Not Available Start: 12-14-2023 End: 12-14-2023 Admission to same day surgery center Irma Cortez [facility] [employer] Comment on above: Aftercare following left knee joint replacement surgery (Primary Dx); Acute pain of left knee; Stiffness of left knee; Primary osteoarthritis of left knee Start: 12-14-2023 End: 12-14-2023 ambulatory Irma Cortez [facility] Start: 12-14-2023 Bamboo flowsheet Irma Tothy [facility] Start: 12-14-2023 Bamboo flowsheet Irma Tothy [facility] Start: 12-13-2023 End: 12-13-2023 ambulatory Wild Furlong Facility:[facility] Start: 12-13-2023 Registered Recurring DO Wild Furlong Work Phone[facility] Work Phone: Start: 12-13-2023 End: 12-13-2023 ambulatory DO Wild Furlong Work Phone: [facility] Work Phone: Start: 12-13-2023 End: 12-13-2023 Patient encounter procedure DO Wild Furlong Work Phone: [facility] Work Phone: Start: 2023 End: 2023 ambulatory IRMA KELBLEY Not Available Start: 12-07-2023 End: 12-08-2023 ambulatory IRMA KELBLEY Not Available Start: 12-05-2023 End: 12-05-2023 ambulatory IRMA KELBLEY Not Available Start: 12-02-2023 End: 12-02-2023 ambulatory IRMA MESA [facility] Start: 12-02-2023 End: 12-02-2023 ambulatory IRMA KELBLEY Not Available Start: 11-30-2023 End: 11-30-2023 ambulatory IRMA KELBLEY Not Available Start: 11-25-2023 End: 11-25-2023 ambulatory IRMA KELBLEY Not Available Start: 11-23-2023 End: 11-23-2023 ambulatory IRMA KELBLEY Not Available Start: 11-21-2023 End: 11-21-2023 ambulatory IRMA KELBLEY Not Available Start: 11-09-2023 End: 11-09-2023 ambulatory Aly Higgins MD Facility:[facility] Start: 11-08-2023 End: 11-08-2023 ambulatory IRMA KELBLEY Not Available Start: 11-04-2023 End: 11-04-2023 ambulatory IRMA KELBLEY Not Available Start: 11-02-2023 End: 11-02-2023 ambulatory IRMA KELBLEY Not Available Start: 11-01-2023 End: 11-02-2023 ambulatory IRMA KELBLEY Not Available Start: 10-28-2023 End: 10-28-2023 ambulatory VIRGINIA MITCHELL Not Available Start: 10-26-2023 End: 10-26-2023 ambulatory VIRGINIA MITCHELL Not Available Start: 10-24-2023 End: 10-24-2023 ambulatory AMAN YU Not Available Start: 10-03-2023 End: 10-04-2023 ambulatory [facility] Start: 09-26-2023 End: 09-26-2023 ambulatory AMAN YU Not Available Start: 09-08-2023 End: 09-13-2023 ambulatory [facility] Start: 08-29-2023 ambulatory [facility] Start: 08-29-2023 Encounter for other preprocedural examination [facility] Start: 08-11-2023 End: 08-11-2023 ambulatory DO Wild Furlong Work Phone: [facility] Work Phone: Start: 08-11-2023 End: 08-11-2023 Registered Recurring DO Wild Furlong Work Phone: [facility] Work Phone: Start: 05-17-2023 End: 05-17-2023 ambulatory [facility] Start: 04-13-2023 End: 04-13-2023 ambulatory DO Wild Furlong Work Phone: [facility] Work Phone: Start: 04-13-2023 End: 04-13-2023 Registered Recurring DO Wild Furlong Work Phone: [facility] Work Phone: Start: 03-03-2023 End: 03-04-2023 ambulatory WILD G FURLONG Facility:[facility] Start: 09-23-2022 End: 09-23-2022 ambulatory DO Wild Furlong Work Phone: [facility] Work Phone: Start: 09-23-2022 End: 09-23-2022 Registered Recurring DO Wild Furlong [facility] Start: 08-26-2022 End: 08-27-2022 ambulatory WILD G FURLONG Facility:[facility] Start: 08-11-2022 End: 08-12-2022 ambulatory WILD G FURLONG Facility:[facility] Start: 07-01-2022 End: 07-01-2022 Registered Recurring DO Wild Furlong [facility] Start: 04-29-2022 End: 04-30-2022 ambulatory ROBERT LONG Facility:[facility] Start: 03-31-2022 End: 03-31-2022 Registered Recurring DO Wild UGElong [facility] Start: 12-16-2020 Obdulio Flowers Dep t. of Dermatology Procedures Date Procedure Procedure Detail Performing Clinician Start: 12-23-2023 Adult depression scr eening assessment Wild Furlong DO Work Phone: Start: 12-13-2023 Computed tomography of abdomen and pelvis with contrast DO Wild UGElong Work Phone: Start: 12-13-2023 CT of thorax with contrast DO Wild Furlong Work Phone: Start: 12-13-2023 Ultrasonography of limb DO [employer]I Move [employer] Work Phone: Start: 09-01-2023 Diabetic retinal eye exam Wild Furlong DO Work Phone: Start: 08-09-2023 Ultrasonography of limb DO Wild UGElong Work Phone: Start: 05-13-2023 Mammography Irma Julio moralesley [employer] Start: 04-07-2023 Ultrasonography of limb DO Wild UGElong Work Phone: Start: 03-14-2023 Microalbumin [Mass/v olume] in Urine by Test strip Wild Furlong DO Work Phone: Start: 12-21-2022 Computed tomography of abdomen and pelvis with contrast DO Wild Furlong Work Phone: Start: 12-21-2022 CT of thorax with contrast DO Wild Furlong Work Phone: Start: 09-21-2022 Ultrasonography of limb DO Wild UGElong Work Phone: Start: 06-29-2022 Computed tomography of abdomen and pelvis with contrast DO Wild Furlong Work Phone: Start: 06-29-2022 CT of thorax with contrast DO [employer] Work Phone: Start: 03-29-2022 Ultrasonography of limb DO [employer] Work Phone: Start: 12-28-2021 Computed tomography of abdomen and pelvis with contrast DO [employer] Work Phone: Start: 12-28-2021 CT of thorax with contrast DO [employer] Work Phone: Start: 09-24-2021 Ultrasonography of limb DO [employer] Work Phone: Start: 06-19-2021 MRI of head DO [employer] Work Phone: Start: 06-17-2021 Positron emission to mography with computed tomography DO [employer] Work Phone: Start: 03-27-2021 Ultrasound procedure on topographic region DO [employer] Work Phone: Start: 12-16-2020 Obdulio Flowers Cataract surgery Wild Fur elena Ligation of fallopian tube D josette UGElong Repair of musculoten dinous cuff of shoulder WildManagerComplete Plan of Treatment Date Care Activity Detail Author Start: 03-25-2026 Screening for malign ant neoplasm of colon [facility] Start: 12-23-2024 Adult BMI Screening Adult BMI Screen ing [facility] Start: 12-23-2024 Depression Screening Depression Scre ening [facility] Start: 12-23-2024 Fall Risk Screening Fall Risk Screen ing [facility] Start: 12-23-2024 Tobacco Screening Tobacco Screening [facility] Start: 09-12-2024 Adult BMI Screening Adult BMI Screen ing [facility] Start: 09-12-2024 Depression Screening Depression Scre ening [facility] Start: 09-12-2024 Tobacco Screening Tobacco Screening [facility] Start: 09-01-2024 Glaucoma screening Diabetic Op hthalmology Exam [facility] Start: 07-12-2024 Fall Risk Screening Fall Risk Screen ing [facility] Start: 05-13-2024 Screening for malign ant neoplasm of breast Mammogram [facility] Start: 03-20-2024 End: 03-20-2024 Patient encounter procedure 03/20/2024 11:10 AM EDT Office Visit [facility] [address] [place] [address] [facility] Family [facility] Start: 03-14-2024 Diabetic foot examination Diabetic Foot Exam [facility] Start: 03-14-2024 Urine screening for protein Urine Microalbumin [facility] Start: 03-10-2024 Medicare Annual Well ness Visit Medicare Annual Wellness Visit [facility] Start: 01-11-2024 End: 01-11-2024 Patient encounter procedure 01/11/2024 10:50 AM EST Office Visit [facility] [address] [place] [address] Wild Centeno DO [address] [facility] [place] [address] [facility] Start: 12-28-2023 End: 12-28-2023 ambulatory 12/28/2023 2:30 PM EST Treatment [facility] [address] [place] [address] Irma Cortez [facility] Start: 12-26-2023 End: 12-26-2023 ambulatory 12/26/2023 2:30 PM EST Treatment [facility] [address] [place] [address] Irma Cortez [facility] Start: 12-21-2023 End: 12-21-2023 ambulatory 12/21/2023 2:30 PM EST Treatment [facility] [address] [place] [address] Irma Cortez [facility] Start: 12-19-2023 End: 12-19-2023 ambulatory [facility] Comment on above: Arrived Start: 12-14-2023 End: 12-14-2023 ambulatory 12/14/2023 2:30 PM EST Treatment [facility] [address] [place] [id number] Irma Cortez, [facility] Arrived [facility] Comment on above: Arrived Start: 07-08-2023 COVID-19 Vaccine () COVID-19 Vaccine () [facility] Start: 09-18-2022 DTaP,Tdap and Td Vaccines (2 - Td or Tdap) DTaP,Tdap and Td Vaccines (2 - Td or Tdap) [facility] Start: 12-08-2021 [facility] Start: 10-06-2021 [facility] Start: 07-15-2021 End: 07-15-2021 [facility] Start: 07-10-2021 [facility] Start: 06-29-2021 [facility] Start: 03-09-2013 Administration of varicella zoster vaccine Zoster (Shingles) Vaccine (1 of 2) [facility] Start: 1968 Adult BMI Follow Up Plan Adult BMI Follow Up Plan [facility] Start: 1950 Screening for malign ant neoplasm of colon [facility] Comprehensive metabo lic 1999 panel - Serum or Plasma [facility] Work Phone: Comprehensive metabo lic 1999 panel - Serum or Plasma [facility] Comprehensive metabo lic 1999 panel - Serum or Plasma [facility] Comprehensive metabo lic 1999 panel - Serum or Plasma [facility] Comprehensive metabo lic 1999 panel - Serum or Plasma [facility] CT Abdomen and Pelvi s W contrast IV [facility] CT Abdomen and Pelvi s W contrast IV [facility] CT Abdomen and Pelvi s W contrast IV [facility] CT Chest W contrast IV [facility] CT Chest W contrast IV [facility] CT Chest W contrast IV [facility] Lactate dehydrogenas e [Enzymatic activity/volume] in Unspecified specimen [facility] Work Phone: Lactate dehydrogenas e [Enzymatic activity/volume] in Unspecified specimen [facility] Extremity [facility] Work Phone: [place] Extremity [facility] US Extremity [facility] Immunizations Immunization Date Immunization Notes Care Provider Fa cili 09-12-2023 Influenza Vaccine, Quadrivalent, Adjuvanted Wild Furlong DO Work Phone: [facility] 10-08-2022 Influenza, High-dose , Quadrivalent Wild Furlong DO Work Phone: [facility] 10-12-2020 influenza, injectabl e, quadrivalent, contains preservative Wild Furlong DO Work Phone: [facility] 09-03-2019 Influenza, injectabl e, Madin Selfridge Canine Kidney, quadrivalent with preservative Wild Furlong DO Work Phone: [facility] 10-24-2017 Influenza, injectabl e, Madin Selfridge Canine Kidney, preservative free, quadrivalent Wild Furlong DO Work Phone: [facility] 10-24-2017 pneumococcal polysaccharide vaccine, 23 valent Wild Furlong DO Work Phone: [facility] 09-05-2016 influenza, seasonal, injectable, preservative free Wild Furlong DO Work Phone: [facility] 08-05-2016 pneumococcal conjuga te vaccine, 13 valent Wild Furlong DO Work Phone: [facility] 09-07-2015 influenza, seasonal, injectable, preservative free Wild Furlong DO Work Phone: [facility] 01-12-2013 varicella virus vaccine Denn is Furlong DO Work Phone: [facility] 01-12-2013 zoster vaccine, unspecified formulation Wild Furlong DO [facility] [facility] 09-18-2012 tetanus toxoid, redu bret diphtheria toxoid, and acellular pertussis vaccine, adsorbed Wild Centeno DO Work Phone: [facility] 1950 pneumococcal conjuga te vaccine, 7 valent 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 Payers Date Payer Category Payer Self-pay [id number] 2018 Unknown 2014 Medicare 1960 Medicare [id number] 1959 Unknown [id number] 1949 Unknown [id number] 2.16.84 0.1.241229.3.579.2.593 1949 Unknown [id number] 2.16.84 0.1.318091.3.579.2.593 1949 Unknown [id number] 2.16.84 0.1.314329.3.579.2.593 1949 Unknown [id number] 2.16.84 0.1.819727.3.579.2.593 1949 Unknown [id number] 2.16.8 40.1.521886.3.579.2.173 1949 Unknown [id number] 2.16.8 40.1.159511.3.579.2.173 1949 Unknown [id number] 2.16. 840.1.715163.3.579.2.196 1949 Unknown [id number] 2.16.8 40.1.809514.3.579.2.1286 1949 Unknown [id number] 2.16.84 0.1.469185.3.579.2.1259 1949 Unknown [id number] 2.16.84 0.1.198823.3.579.2.1259 1949 Unknown [id number] 2.16.84 0.1.268858.3.579.2.1259 1949 Unknown [id number] 2.16.84 0.1.929258.3.579.2.1259 1949 Unknown [id number] 2.16.84 0.1.335982.3.579.2.1259 1949 Unknown [id number] 2.16.84 0.1.649572.3.579.2.1259 1949 Unknown [id number] 2.16.84 0.1.063070.3.579.2.1259 1949 Unknown [id number] 2.16.84 0.1.888582.3.579.2.1259 1949 Unknown [id number] 2.16.84 0.1.118950.3.579.2.1259 1949 Unknown [id number] 2.16.84 0.1.297769.3.579.2.1259 1949 Unknown [id number] 2.16.84 0.1.192294.3.579.2.1259 1949 Unknown [id number] 2.16.84 0.1.361966.3.579.2.1259 1949 Unknown [id number] 2.16.840 .1.258067.3.579.2.1259 1949 Unknown [id number] 2.16.840 .1.958599.3.579.2.1259 1949 Unknown [id number] 2.16.840 .1.747908.3.579.2.1259 1949 Unknown [id number] 2.16.840 .1.538943.3.579.2.1259 1949 Unknown [id number] 2.16.840 .1.232662.3.579.2.1259 1949 Unknown [id number] 2.16.840 .1.779773.3.579.2.1259 1949 Unknown [id number] 2.16.840 .1.943024.3.579.2.1259 1949 Unknown [id number] 2.16.840 .1.354463.3.579.2.1259 Unknown [facility] [id number] Unknown [id number] 2.16.8 40.1.354316.3.579.2.531 Unknown [id number] 2.16.8 40.1.792984.3.579.2.531 Social History Date Type Detail Facility Assertion Tobacco smoking consumption unknown (finding) 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 Yes [facility] Are you now , , , , never or living with a partner? [facility] How often to you hav e a drink containing alcohol? Never [facility] How many standard dr inks containing alcohol do you have on a typical day? Patient does not drink [facility] Do you feel stress - tense, restless, nervous, or anxious, or unable to sleep at night because your mind is troubled all the time - these days [OSQ] Not at all [facility] Medical Equipment Procedure Code Equipment Code [...] Elena Plus test strips TEST once daily [id number] Goals Date Patient Goal Desired Activity /State Functional Status Date Assessment Result Facility NEGATED: Highlighted row Functional performance Functional status health issues are not documented Disease [facility] Work [facility]: Mental Status Date Assessment Result Facility NEGATED: Highlighted row Cognitive function [Interpretation] Cognitive status health issues are not documented Disease [facility] Work Phone: Clinical Notes 10-01-2020 to 12-23-2023 [...] over time. 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 ([facility]) GFR reviewed and is stable at 55. No dosing adjustments required. Other orders - allopurinoL (ZYLOPRIM) 100 mg tablet; Take 1 tablet (100 mg total) by mouth in the morning. Start after flare up resolves. documented in this encounter [facility]23 Evaluation note Diagnosis Acute gout due to renal impairment involving toe of right foot- Primary 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 ([facility]) documented in this encounter [facility]01-26-2024 NoteContinue lasix 20 mg daily, stop norvasc, repeat echocardiogramUn[facility]01-26-2024 NoteDOE and BLE edema will order echocardiogram to assess cardiac function, diastolic function and valvular function RTC after echo completedUnKettering Health [facility]01-26-2024 Note Hypertension is controlled and hypotensive despite not taking lisinopril 40 mg the last 2 days. Asked pt to stop norvasc and to hold lisinopril if SBP < 100 and she voiced understandingUnK[facility]tering Health [facility]01-26-2024 Note Continue crestor 10 mg dailyUnKettering Health [facility]01-26-2024 Note [facility] CARDIOLOGY PROGRESS NOTE HPI: Tosha [...] lasix 20 mg daily, stop norvasc, repeat echocardiogramK[facility]01-26-2024 NotePatient here for 3 mo follow up [...] pain. All other systems reviewed and are negative.[facility] 08-29-2023 NoteCardiology Clinic Note Subjective Tosha Mcneal [...] mild unilateral left lower (more content not included)...[facility]10-23-2023 NotePatient here for surgery clearance prior to TKA. Doing well from cardiac standpoint, as she denies chest pain, SOB, and palpitations. Her LLE edema is no more than usual she states. Review of Systems Cardiovascular: Positive for leg swelling (LLE, intermittent). Musculoskeletal: Positive for arthritis and joint pain. All other systems reviewed and are negative.[facility] 05-17-2023 NoteCardiology Clinic Note Subjective Tosha Mcneal [...] about 6 months (around 11/17/2023). Perry Manuel APRN-[facility] Cardiovascular MedicineK[facility]tering [facility]07-11-2023 NotePatient here for 6 mo follow up HFpEF, hypertension, and hyperlipidemia. She had routine labs in February 2023. Denies chest pain and SOB. Doing very well. Review of Systems Cardiovascular: Positive for leg swelling (LLE, intermittent). Musculoskeletal: Positive for arthritis and joint pain. All other systems reviewed and are negative.[facility] 04-13-2023 Progress note Author Rose Ohara [facility] April 13, 2023 5:59pm Note Date/Time April 13, 2023 9:30a m [facility] [place] [address] Hem/Onc Follow Up Note - OP Signed Patient: Tosha Mcneal MR#: [id number] : 1950 Acct:[id number] Age/Sex: 72 / F Type: REG RCR [...] She is leaving for a cruise to [place] this month. Continue 4 month followup with [...] related toxicities. Now following with dermatology at [facility] with no recurrence on skin exam. Surveillance ultrasound right axilla without recurrence. She will have routing f/u with ne in [address] CAP and [...] proceeded with wide local excision 09/05/2020 at [facility]. Outside review at [facility] showed at least 2.1 cm Breslow depth melanoma with 2 cm negative margins. She was referred to Dr. Cedrick Berger at [facility]. Right axillary sentinel lymph node biopsy performed [...] liver lesion. Her case was presented at [facility] cutaneous tumor board on 12/15/2020rior to her metastatic staging. Discussion of referral to medical oncology fordiscussion of immunotherapy. The patient is now returning for medical oncology follow-up after review of all prior pathology and imaging. BRAF status is stillpending. She has healed well. She is a 10-year history of diabetes. She resides in [facility]. Today we reviewed immunotherapy counseling for nivolumab. [...] Therapies: 1. Initial wide local excision at [facility] 09/05/[address] Hernando Mccartney 2. Right sentinel lymph node biopsy 11/28/[address] [facility] [address] Cedrick Berger 3. Delay of [...] cit 4.5 mg-lutein 2.5 mg-zeaxan chew tablet ([facility]) 1 tab PO DAILY eye [...] % (Auto) 62.3, Lymph % (Auto) 26.0, Burnet % (Auto) 8.6, Eos % (Auto) 2.2, Baso % (Auto) 0.9, Nucleat RBC Rel Count 0.1, Neut # (Auto) 4.3, Lymph # (Auto) 1.8, Burnet # (Auto) 0.6, Eos # (Auto) 0.2, [...] Plan - TNM Staging Staging: Stage: pIIIC ([id number]) Melanoma 5 year survival: 69% (1) Melanoma [...] without extracapsular extension. Dr. Cedrick Berger at [facility] surgical oncology group ordered metastatic staging [...] follow-up with primary physician. Next follow-up with ne for CT chest abdomen pelvis with surveillance [...] for coordination of care (as documented) and hbfg-os-zbno counseling of patient and/or family. Dictated By: Rose Ohara MD DD/ 0929 Signed By: <Electronically signed by MD Rose Ohara> 04/13/23 8622 [facility] Work Phone: 1(806) 155-792102-16-2023 Progress note Author Rose Ohara [facility] December 23, 2022 11:01am Note Date/Time December 23, 2022 9:06am [facility] [place] [address] Hem/Onc Follow Up Note - OP Signed Patient: Tosha Mcneal MR#: [id number] : 1950 Acct:[id number] Age/Sex: 72 / F Type: REG RCR [...] related toxicities. Now following with dermatology at [facility] with no recurrence on skin exam. Surveillance ultrasound right axilla without recurrence. She will have routing f/u with ne in [address] CAP and [...] proceeded with wide local excision 09/05/2020 at [facility]. Outside review at [facility] showed at least 2.1 cm Breslow depth melanoma with 2 cm negative margins. She was referred to Dr. Cedrick Berger at [facility]. Right axillary sentinel lymph node biopsy performed [...] liver lesion. Her case was presented at [facility] cutaneous tumor board on 12/15/2020rior to her metastatic staging. Discussion of referral to medical oncology fordiscussion of immunotherapy. The patient is now returning for medical oncology follow-up after review of all prior pathology and imaging. BRAF status is stillpending. She has healed well. She is a 10-year history of diabetes. She resides in [facility]. Today we reviewed immunotherapy counseling for nivolumab. [...] Therapies: 1. Initial wide local excision at [facility] 09/05/[address] Hernando Mccartney 2. Right sentinel lymph node biopsy 11/28/[address] [facility] [address] Cedrick Berger 3. Delay of [...] cit 4.5 mg-lutein 2.5 mg-zeaxan chew tablet ([facility]) 1 tab PO DAILY eye [...] % (Auto) 60.2, Lymph % (Auto) 24.8, Burnet % (Auto) 11.9, Eos % (Auto) 1.9, Baso % (Auto) 1.2, Nucleat RBC Rel Count 0.2, Neut # (Auto) 4.1, Lymph # (Auto) 1.7, Burnet # (Auto) 0.8, Eos # (Auto) 0.1, [...] Plan - TNM Staging Staging: Stage: pIIIC ([id number]) Melanoma 5 year survival: 69% (1) Melanoma [...] without extracapsular extension. Dr. Cedrick Berger at [facility] surgical oncology group ordered metastatic staging [...] for coordination of care (as documented) and bwte-nd-dhgz counseling of patient and/or family. Dictated By: Rose Ohara MD DD/ 4 Signed By: <Electronically signed by MD Rose Ohara> 12/23/22 1101 [facility] Work Phone: [phone]) 302-903311-17-2022 Progress note Author Rose Ohara [facility] September 23, 2022 10:21am Note Date/Time September 23, 2022 8:36am [facility] [place] [address] Hem/Onc Follow Up Note - OP Signed Patient: Tosha Mcneal MR#: [id number] : 1950 Acct:[id number] Age/Sex: 71 / F Type: REG RCR [...] related toxicities. Now following with dermatology at [facility] with no recurrence on skin exam. Surveillance ultrasound right axilla without recurrence. She will have routing f/u with ne in [address] CAP and [...] proceeded with wide local excision 09/05/2020 at [facility]. Outside review at [facility] showed at least 2.1 cm Breslow depth melanoma with 2 cm negative margins. She was referred to Dr. Cedrick Berger at [facility]. Right axillary sentinel lymph node biopsy performed [...] liver lesion. Her case was presented at [facility] cutaneous tumor board on 1prior to her metastatic staging. Discussion of referral to medical oncology fordiscussion of immunotherapy. The patient is now returning for medical oncology follow-up after review of all prior pathology and imaging. BRAF status is stillpending. She has healed well. She is a 10-year history of diabetes. She resides in [facility]. Today we reviewed immunotherapy counseling for nivolumab. [...] Therapies: 1. Initial wide local excision at [facility] 09/05/[address] Hernando Mccartney 2. Right sentinel lymph node biopsy 11/28/[address] [facility] [address] Cedrick Berger 3. Delay of [...] cit 4.5 mg-lutein 2.5 mg-zeaxan chew tablet ([facility]) 1 tab PO DAILY eye [...] % (Auto) 65.7, Lymph % (Auto) 21.6, Burnet % (Auto) 9.7, Eos % (Auto) 2.0, Baso % (Auto) 1.0, Neut # (Auto) 4.5, Lymph # (Auto) 1.5, Burnet # (Auto) 0.7, Eos# (Auto) 0.1, Baso [...] Plan - TNM Staging Staging: Stage: pIIIC ([id number]) Melanoma 5 year survival: 69% (1) Melanoma [...] without extracapsular extension. Dr. Cedrick Berger at [facility] surgical oncology group ordered metastatic staging [...] for coordination of care (as documented) and sfnd-wy-paza counseling of patient and/or family. Dictated By: Rose Ohara MD DD/ [id number] Signed By: <Electronically signed by MD Rose Ohara> 09/23/22 1021 [facility] Work Phone: 1(870) 632-924008-25-2022 Progress note Author Rose Ohara [facility] July 01, 2022 8:35pm Note Date/Time July 01, 2022 10 :39am [facility] at [address] [address] Hem/Onc Follow Up Note - OP Signed Patient: Tosha Mcneal MR#: [id number] : 1950 Acct:[id number] Age/Sex: 71 / F Type: REG RCR [...] related toxicities. Now following with dermatology at [facility] with no recurrence on skin exam. [...] proceeded with wide local excision 09/05/2020 at [facility]. Outside review at [facility] showed at least 2.1 cm Breslow depth melanoma with 2 cm negative margins. She was referred to Dr. Cedrick Berger at [facility]. Right axillary sentinel lymph node biopsy performed [...] liver lesion. Her case was presented at [facility] cutaneous tumor board on 1prior to her metastatic staging. Discussion of referral to medical oncology fordiscussion of immunotherapy. The patient is now returning for medical oncology follow-up after review of all prior pathology and imaging. BRAF status is stillpending. She has healed well. She is a 10-year history of diabetes. She resides in [facility]. Today we reviewed immunotherapy counseling for nivolumab. [...] Therapies: 1. Initial wide local excision at [facility] 09/05/[address] Hernando Mccartney 2. Right sentinel lymph node biopsy 11/28/[address] [facility] [address] Cedrick Berger 3. Delay of [...] 07/01/22 @ 20:23 by Rose Oahra MD) Mother CVA (cerebral vascular accident) Father [...] cit 4.5 mg-lutein 2.5 mg-zeaxan chew tablet ([facility]) 1 tab PO DAILY eye [...] % (Auto) 66.8, Lymph % (Auto) 18.8, Burnet % (Auto) 9.5, Eos % (Auto) 3.7, Baso % (Auto) 1.2, Neut # (Auto) 5.6, Lymph # (Auto) 1.6, Burnet # (Auto) 0.8, Eos #(Auto) 0.3, Baso [...] Plan - TNM Staging Staging: Stage: pIIIC ([id number]) Melanoma 5 year survival: 69% (1) Melanoma [...] without extracapsular extension. Dr. Cedrick Berger at [facility] surgical oncology group ordered metastatic staging [...] for coordination of care (as documented) and bnuv-ez-dpea counseling of patient and/or family. Dictated By: Rose Ohara MD DD/ 1038 Signed By: <Electronically signed by MD Rose Ohara> 07/01/222034 [facility] Work Phone: 1(883) 657-344305-26-2022 Progress note Author Rose Ohara [facility] April 01, 2022 1:09pm Note Date/Time March 31, 2022 1:30p [facility] [place] [address] Hem/Onc Follow Up Note - OP Signed Patient: Tosha Mcneal MR#: [id number] : 1950 Acct:[id number] Age/Sex: 71 / F Type: REG RCR Copies to: DO Moahn Haddad MD~ Subjective Date/Time of Service: Date [...] related toxicities. Now following with dermatology at [facility] with no recurrence on skin exam. [...] proceeded with wide local excision 09/05/2020 at [facility]. Outside review at [facility] showed at least 2.1 cm Breslow depth melanoma with 2 cm negative margins. She was referred to Dr. Cedrick Berger at [facility]. Right axillary sentinel lymph node biopsy performed11/28/2020 [...] liver lesion. Her case was presented at [facility] cutaneous tumor board on 1prior to her metastatic staging. Discussion of referral to medical oncology fordiscussion of immunotherapy. The patient is now returning for medical oncology follow-up after review of all prior pathology and imaging. BRAF status is stillpending. She has healed well. She is a 10-year history of diabetes. She resides in [facility]. Today we reviewed immunotherapy counseling for nivolumab. [...] Therapies: 1. Initial wide local excision at [facility] 09/05/[address] Hernando Mccartney 2. Right sentinel lymph node biopsy 11/28/[address] [facility] [address] Cedrick Berger 3. Delay of [...] Negative for environmental allergies and food allergies. [facility] - History Attestation statement: The following information [...] cit 4.5 mg-lutein 2.5 mg-zeaxan chew tablet ([employer]) 1 tab PO DAILY 04/11/19 [History Confirmed [...] % (Auto) 64.5, Lymph % (Auto) 22.3, Burnet % (Auto) 9.5, Eos % (Auto) 2.6, Baso % (Auto) 1.1, Neut # (Auto) 4.8, Lymph # (Auto) 1.7, Burnet # (Auto) 0.7, Eos# (Auto) 0.2, Baso [...] Plan - TNM Staging Staging: Stage: pIIIC ([id number]) Melanoma 5 year survival: 69% (1) Melanoma [...] without extracapsular extension. Dr. Cedrick Berger at [facility] surgical oncology group ordered metastatic staging [...] for coordination of care (as documented) and nglt-ks-yhwb counseling of patient and/or family. Dictated By: Rose Ohara MD DD/ 1330 Signed By: <Electronically signed by MD Rose Ohara> 04/01/22 8391 [facility] Work Phone: 1([phone]) [phone] Progress note Author Rose Ohara [facility] December 30, 2021 3:45pm Note Date/Time December 30, 2021 10:04am [place] [address] Hem/Onc Follow Up Note - OP Signed Patient: Tosha Mcneal MR#: [id number] : 1950 Acct:[id number] Age/Sex: 71 / F Type: REG RCR [...] related toxicities. Now following with dermatology at [facility] with no recurrence on skin exam. Surveillance ultrasound right axilla without recurrence. She will have routing f/u with ne in [address] CAP and [...] proceeded with wide local excision 09/05/2020 at [facility] 2.1 cm Breslow depth melanoma with 2 cm negative margins. She was referred to Dr. Cedrick Berger at [facility]. Right axillary sentinel lymph node biopsy performed [...] liver lesion. Her case was presented at [facility] cutaneous tumor board on 12/15/2020rior to her metastatic staging. Discussion of referral to medical oncology fordiscussion of immunotherapy. The patient is now returning for medical oncology follow-up after review of all prior pathology and imaging. BRAF status is stillpending. She has healed well. She is a 10-year history of diabetes. She resides in [facility]. Today we reviewed immunotherapy counseling for nivolumab. [...] Therapies: 1. Initial wide local excision at [facility] 09/05/[address] Hernando Mccartney 2. Right sentinel lymph node biopsy 11/28/[address] [facility] [address] Cedrick Berger 3. Delay of [...] cit 4.5 mg-lutein 2.5 mg-zeaxan chew tablet ([employer]) 1 tab PO DAILY 04/11/19 [History Confirmed [...] Plan - TNM Staging Staging: Stage: pIIIC ([id number]) Melanoma 5 year survival: 69% (1) Melanoma [...] without extracapsular extension. Dr. Cedrick Berger at [facility] surgical oncology group ordered metastatic staging [...] for coordination of care (as documented) and cjla-aj-wstz counseling of patient and/or family. Dictated By: Rose Ohara MD DD/ 1004 Signed By: <Electronically signed by MD Rose Ohara> 12/30/21 0088 [facility] Work Phone: 1(673) 815-450611-25-2021 Progress note Author Rose Oahra [facility] October 01, 2021 12:50pm Note Date/Time September 30, 2021 10:46[address] 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 Addendum Dictated By: MD [...] related toxicities. Now following with dermatology at [facility] with no recurrence on skin exam. Surveillance ultrasound right axilla without recurrence. She will have routing f/u with ne in [address] CAP and [...] proceeded with wide local excision 09/05/2020 at [facility]. Outside review at [facility] showed at least 2.1 cm Breslow depth melanoma with 2 cm negative margins. She was referred to Dr. Cedrick Berger at [facility]. Right axillary sentinel lymph node biopsy performed [...] liver lesion. Her case was presented at [facility] cutaneous tumor board on 12/15/2020rior to her metastatic staging. Discussion of referral to medical oncology fordiscussion of immunotherapy. The patient is now returning for medical oncology follow-up after review of all prior pathology and imaging. BRAF status is stillpending. She has healed well. She is a 10-year history of diabetes. She resides in [facility]. Today we reviewed immunotherapy counseling for nivolumab. [...] Therapies: 1. Initial wide local excision at [facility] 09/05/[address] Hernando Mccartney 2. Right sentinel lymph node biopsy 11/28/2020 at [facility] by Dr. Cedrick Berger 3. Delay of [...] Negative for environmental allergies and food allergies. [facility] - History Attestation statement: The following information [...] cit 4.5 mg-lutein 2.5 mg-zeaxan chew tablet (Codewise) 1 tab PO DAILY 04/11/19 [History Confirmed [...] Plan - TNM Staging Staging: Stage: pIIIC ([id number]) Melanoma 5 year survival: 69% (1) Melanoma [...] without extracapsular extension. Dr. Cedrick Berger at [facility] surgical oncology group ordered metastatic staging [...] for coordination of care (as documented) and qraw-gf-rsvk counseling of patient and/or family. Dictated By: Rose Ohara MD DD/ 1046 Signed By: <Electronically signed by MD Rose Ohara> 09/30/21 2146 [facility] Work Phone: 1(857) 614-735608-23-2021 Progress note Author Rose Ohara [facility] June 29, 2021 6:03pm Note Date/Time June 29, 2021 10 :48am [facility] [place] [address] Hem/Onc Follow Up Note - OP Signed Patient: Tosha Mcneal MR#: [id number] : 1950 Acct:[id number] Age/Sex: 70 / F Type: REG RCR [...] proceeded with wide local excision 09/05/2020 at [facility]. Outside review at [facility] showed at least 2.1 cm Breslow depth melanoma with 2 cm negative margins. She was referred to Dr. Cedrick Berger at [facility]. Right axillary sentinel lymph node biopsy performed [...] liver lesion. Her case was presented at [facility] cutaneous tumor board on 12/15/2020rior to her metastatic staging. Discussion of referral to medical oncology fordiscussion of immunotherapy. The patient is now returning for medical oncology follow-up after review of all prior pathology and imaging. BRAF status is stillpending. She has healed well. She is a 10-year history of diabetes. She resides in [facility]. Today we reviewed immunotherapy counseling for nivolumab. [...] Therapies: 1. Initial wide local excision at [facility] 09/05/[address] Hernando Mccartney 2. Right sentinel lymph node biopsy 11/28/[address] [facility] [address] Cedrick Berger 3. Delay of [...] cit 4.5 mg-lutein 2.5 mg-zeaxan chew tablet (Codewise) 1 tab PO DAILY 04/11/19 [History Confirmed [...] Plan - TNM Staging Staging: Stage: pIIIC ([id number]) Melanoma 5 year survival: 69% (1) Melanoma [...] without extracapsular extension. Dr. Cedrick Berger at [facility] surgical oncology group ordered metastatic staging [...] for coordination of care (as documented) and xttu-kt-qrpq counseling of patient and/or family. Dictated By: Rose Ohara MD DD/ 1048 Signed By: <Electronically signed by MD Rose Ohara> 06/29/21 6484 [facility] Work Phone: [phone]) 162-663805-17-2021 Progress note Author Rose Ohara [facility] March 23, 2021 9:29am Note Date/Time March 23, 2021 9:09a m [facility] [place] [address] Hem/Onc Follow Up Note - OP Signed Patient: Tosha Mcneal MR#: [id number] : 1950 Acct:[id number] Age/Sex: 70 / F Type: REG RCR [...] proceeded with wide local excision 09/05/2020 at [facility]. Outside review at [facility] showed at least 2.1 cm Breslow depth melanoma with 2 cm negative margins. She was referred to Dr. Cedrick Berger at [facility]. Right axillary sentinel lymph node biopsy performed [...] liver lesion. Her case was presented at [facility] cutaneous tumor board on 1prior to her metastatic staging. Discussion of referral to medical oncology fordiscussion of immunotherapy. The patient is now returning for medical oncology follow-up after review of all prior pathology and imaging. BRAF status is stillpending. She has healed well. She is a 10-year history of diabetes. She resides in [facility]. Today we reviewed immunotherapy counseling for nivolumab. [...] Therapies: 1. Initial wide local excision at [facility] 09/05/[address] Hernando Mccartney 2. Right sentinel lymph node biopsy 11/28/[address] [facility] [address] Cedrick Berger 3. Delay of [...] % (Auto) 69.8, Lymph % (Auto) 16.9, Burnet % (Auto) 9.7, Eos % (Auto) 2.4, Baso % (Auto) 1.2, Neut # (Auto) 5.1, Lymph # (Auto) 1.2, Burnet # (Auto) 0.7, Eos # (Auto) 0.2, [...] Plan - TNM Staging Staging: Stage: pIIIC ([id number]) Melanoma 5 year survival: 69% (1) Melanoma [...] without extracapsular extension. Dr. Cedrick Berger at [facility] surgical oncology group ordered metastatic staging [...] for coordination of care (as documented) and xbkr-wb-zlmg counseling of patient and/or family. Dictated By: Rose Ohara MD DD/ Signed By: <Electronically signed by MD Rose Ohara> 03/23/21 0929 [facility] Work Phone: 1(878) 381-411104-05-2021 Progress note Author Rose Ohara [facility] February 09, 2021 1:28pm Note Date/Time February 09, 2021 8:07 am [facility] [place] [id number] Hem/Onc Follow Up Note - OP Signed Patient: ColleenTosha Talavera MR#: [id number] : 1950 Acct:[id number] Age/Sex: 70 / F Type: REG RCR [...] proceeded with wide local excision 09/05/2020 at [facility]. Outside review at [facility] showed at least 2.1 cm Breslow depth melanoma with 2 cm negative margins. She was referred to Dr. Cedrick Berger at [facility]. Right axillary sentinel lymph node biopsy performed [...] liver lesion. Her case was presented at [facility] cutaneous tumor board on 1prior to her metastatic staging. Discussion of referral to medical oncology fordiscussion of immunotherapy. The patient is now returning for medical oncology follow-up after review of all prior pathology and imaging. BRAF status is stillpending. She has healed well. She is a 10-year history of diabetes. She resides in [facility]. Today we reviewed immunotherapy counseling for nivolumab. [...] Therapies: 1. Initial wide local excision at [facility] 09/05/[address] Hernando Mccartney 2. Right sentinel lymph node biopsy 11/28/[address] [facility] [address] Cedrick Berger 3. Delay of [...] Plan - TNM Staging Staging: Stage: pIIIC ([id number]) Melanoma 5 year survival: 69% (1) Melanoma [...] without extracapsular extension. Dr. Cedrick Berger at [facility] surgical oncology group ordered metastatic staging [...] for coordination of care (as documented) and erpy-ao-nwjx counseling of patient and/or family. Dictated By: Rose Ohara MD DD/ 0807 Signed By: <Electronically signed by MD Rose Ohara> 02/09/21 1328 [facility] Work Phone: 1([phone]) [phone] Consult note Author Bang Nunez [facility] October 01, 2020 11:21am Note Date/Time October 01, 2020 11:10am [facility] [place] [address] Hem/Onc Consult Note - OP Signed Patient: Tosha Mcneal MR#: [id number] : 1950 Acct:[id number] Age/Sex: 69 / F Type: REG RCR [...] 10-year history of diabetes. She resides in [facility]. [facility] - Medical History Medical History: Medical History [...] refer her to Dr. Cedrick Berger at [facility] surgical oncology group for his opinion. I will see her back at a later date. - Time with Patient Coordination of Care & Counseling Time: Greater than 50% of time spent with patient was for coordination of care (as documented) and zgdr-nk-diyq counseling of patient and/or family. Dictated By: Bang Nunez MD DD/ 1108 Signed By: <Electronically signed by MD Bang Nunez> 10/01/20 1121 [facility] Work Phone: Evaluation note* Diagnosis Onset Date Resolution Status Diabetes mellitus chronic Encounter for antineoplastic immunotherapy chronic Enlarged pituitary gland chr onic Melanoma chronic [facility] Work Phone: Evaluation note* Diagnosis Onset Date Resolution Status Enlarged pituitary gland acu te Diabetes mellitus chronic Encounter for antineoplastic immunotherapy chronic Melanoma chronic [facility] Work Phone: Evaluation note* Diagnosis Onset Date Resolution Status Enlarged pituitary gland acu te Diabetes mellitus chronic Encounter for antineoplastic immunotherapy chronic Melanoma chronic Enlarged pituitary gland acu te Malignant melanoma of right upper limb, including shoulder acute Diabetes mellitus chronic [facility] Work Phone: Evaluation note* Diagnosis Aftercare following [...] [facility] Author Rose Ohara [facility] July 01, 2022 8:35pm Note Date/Time July 01, 2022 10 :39am [facility] [place] [address] Hem/Onc Follow Up Note - OP Signed Patient: Tosha Mcneal MR#: [id number] : 1950 Acct:[id number] Age/Sex: 71 / F Type: REG RCR [...] related toxicities. Now following with dermatology at [facility] with no recurrence on skin exam. Surveillance ultrasound right axilla without recurrence. She will have routing f/u with ne in [address] CAP and [...] proceeded with wide local excision 09/05/2020 at [facility]. Outside review at [facility] showed at least 2.1 cm Breslow depth melanoma with 2 cm negative margins. She was referred to Dr. Cedrick Berger at [facility]. Right axillary sentinel lymph node biopsy performed [...] liver lesion. Her case was presented at [facility] cutaneous tumor board on 1prior to her metastatic staging. Discussion of referral to medical oncology fordiscussion of immunotherapy. The patient is now returning for medical oncology follow-up after review of all prior pathology and imaging. BRAF status is stillpending. She has healed well. She is a 10-year history of diabetes. She resides in [facility]. Today we reviewed immunotherapy counseling for nivolumab. [...] Therapies: 1. Initial wide local excision at [facility] 09/05/[address] Hernando Mccartney 2. Right sentinel lymph node biopsy 11/28/[address] [facility] [address] Cedrick Berger 3. Delay of [...] cit 4.5 mg-lutein 2.5 mg-zeaxan chew tablet ([employer]) 1 tab PO DAILY eye [...] % (Auto) 66.8, Lymph % (Auto) 18.8, Burnet % (Auto) 9.5, Eos % (Auto) 3.7, Baso % (Auto) 1.2, Neut # (Auto) 5.6, Lymph # (Auto) 1.6, Burnet # (Auto) 0.8, Eos #(Auto) 0.3, Baso [...] Plan - TNM Staging Staging: Stage: pIIIC ([id number]) Melanoma 5 year survival: 69% (1) Melanoma [...] without extracapsular extension. Dr. Cedrick Berger at [facility] surgical oncology group ordered metastatic staging [...] for coordination of care (as documented) and opor-ib-zdrq counseling of patient and/or family. Dictated By: Rose Ohara MD DD/ 1038 Signed By: <Electronically signed by MD Rose Oahra> 07/01/222034 [facility] Work Phone: Progress note Author Rose Ohara [facility] September 23, 2022 10:21am Note Date/Time September 23, 2022 8:36am [place] [address] Hem/Onc Follow Up Note - OP Signed Patient: Tosha Mcneal MR#: [id number] : 1950 Acct:[id number] Age/Sex: 71 / F Type: REG RCR [...] related toxicities. Now following with dermatology at [facility] with no recurrence on skin exam. Surveillance ultrasound right axilla without recurrence. She will have routing f/u with ne in [address] CAP and [...] proceeded with wide local excision 09/05/2020 at [facility]. Outside review at [facility] showed at least 2.1 cm Breslow depth melanoma with 2 cm negative margins. She was referred to Dr. Cedrick Berger at [facility]. Right axillary sentinel lymph node biopsy performed [...] liver lesion. Her case was presented at [facility] cutaneous tumor board on 1prior to her metastatic staging. Discussion of referral to medical oncology fordiscussion of immunotherapy. The patient is now returning for medical oncology follow-up after review of all prior pathology and imaging. BRAF status is stillpending. She has healed well. She is a 10-year history of diabetes. She resides in [facility]. Today we reviewed immunotherapy counseling for nivolumab. [...] Therapies: 1. Initial wide local excision at [facility] 09/05/[address] Hernando Mccratney 2. Right sentinel lymph node biopsy 11/28/[address] [facility] [address] Cedrick Berger 3. Delay of [...] % (Auto) 65.7, Lymph % (Auto) 21.6, Burnet % (Auto) 9.7, Eos % (Auto) 2.0, Baso % (Auto) 1.0, Neut # (Auto) 4.5, Lymph # (Auto) 1.5, Burnet # (Auto) 0.7, Eos# (Auto) 0.1, Baso [...] Plan - TNM Staging Staging: Stage: pIIIC ([id number]) Melanoma 5 year survival: 69% (1) Melanoma [...] without extracapsular extension. Dr. Cedrick Berger at [facility] surgical oncology group ordered metastatic staging [...] for coordination of care (as documented) and jmcn-mf-ilit counseling of patient and/or family. Dictated By: Rose Ohara MD DD/ 0835 Signed By: <Electronically signed by MD Rose Ohara> 09/23/22 1021 [facility] Work Phone: Progress note Author Rose Ohara [facility] April 13, 2023 5:59pm Note Date/Time April 13, 2023 9:30a m [facility] [place] [address] Hem/Onc Follow Up Note - OP Signed Patient: Tosha Mcneal MR#: [id number] : 1950 Acct:[id number] Age/Sex: 72 / F Type: REG RCR [...] She is leaving for a cruise to [place] this month. Continue 4 month followup with [...] related toxicities. Now following with dermatology at [facility] with no recurrence on skin exam. [...] proceeded with wide local excision 09/05/2020 at [facility]. Outside review at [facility] showed at least 2.1 cm Breslow depth melanoma with 2 cm negative margins. She was referred to Dr. Cedrick Berger at [facility]. Right axillary sentinel lymph node biopsy performed [...] liver lesion. Her case was presented at [facility] cutaneous tumor board on 1prior to her metastatic staging. Discussion of referral to medical oncology fordiscussion of immunotherapy. The patient is now returning for medical oncology follow-up after review of all prior pathology and imaging. BRAF status is stillpending. She has healed well. She is a 10-year history of diabetes. She resides in [facility]. Today we reviewed immunotherapy counseling for nivolumab. [...] Therapies: 1. Initial wide local excision at [facility] 09/05/[address] Hernando Mccartney 2. Right sentinel lymph node biopsy 11/28/[address] [facility] [address] Cedrick Berger 3. Delay of [...] % (Auto) 62.3, Lymph % (Auto) 26.0, Burnet % (Auto) 8.6, Eos % (Auto) 2.2, Baso % (Auto) 0.9, Nucleat RBC Rel Count 0.1, Neut # (Auto) 4.3, Lymph # (Auto) 1.8, Burnet # (Auto) 0.6, Eos # (Auto) 0.2, [...] Plan - TNM Staging Staging: Stage: pIIIC ([id number]) Melanoma 5 year survival: 69% (1) Melanoma [...] without extracapsular extension. Dr. Cedrick Berger at [facility] surgical oncology group ordered metastatic staging [...] for coordination of care (as documented) and dsph-ay-uryr counseling of patient and/or family. Dictated By: Rose Ohara MD DD/ 0929 Signed By: <Electronically signed by MD Rose Ohara> 04/13/23 1675 [facility] Work Phone: Summary Purpose Family History [...] right arm melanoma Surgeon: Cedrick Berger Resident/Fellow/Other Placement Coordinator: Ramiro Bhat Procedure: 1. RIGHT AXILLARY SENTINEL [...] section and content) DATE CREATED AUTHOR 10/24/2020 [employer] DATE CREATED AUTHOR AUTHOR'S ORGANIZ ATION 12/14/2020 [facility] DATE CREATED AUTHOR AUTHOR'S ORGANIZ ATION 10/07/2021 [facility] DATE CREATED AUTHOR AUTHOR'S ORGANIZ ATION 04/09/2022 [facility] DATE CREATED AUTHOR AUTHOR'S ORGANIZ ATION 03/07/2023 [facility] DATE CREATED AUTHOR AUTHOR'S ORGANIZ ATION 10/12/2023 [facility] DATE CREATED AUTHOR AUTHOR'S ORGANIZ ATION 11/10/2023 [facility] DATE CREATED AUTHOR AUTHOR'S ORGANIZ ATION 12/22/2023 [facility] DATE CREATED AUTHOR AUTHOR'S ORGANIZ ATION 12/24/2023 [facility] DATE CREATED AUTHOR AUTHOR'S ORGANIZ ATION 12/25/2023 [facility] DATE CREATED AUTHOR AUTHOR'S ORGANIZ ATION 12/27/2023 [facility] d[facility] Special[facility] EPIC Care Teams (unrecognized sec [...] December 15, 2023 End: December 15, 2023 Metal Technician Relationship Specialty Start Date End Date Unallocated, [facility] [place] [address] PCP - General Family Medicine 12/06/23 Metal Technician Relationship Specialty Start Date End Date Unallocated, [place] Provider [address] [place] [address] PCP - General [facility] Medicine 12/06/23 Metal Technician Relationship Specialty Start Date End Date Unallocated, [place] Provider [address] [place] [address] PCP - General [facility] Medicine 12/06/23 Metal Technician Relationship Specialty Start Date End Date Unallocated, [facility] Provider [address] [place] [address] PCP - General [facility] Medicine 12/06/23 Metal Technician Relationship Specialty Start Date End Date Unallocated, [facility] Provider [address] [place] [address] PCP - General [facility] Medicine 12/06/23 Metal Technician Relationship Specialty Start Date End Date Unallocated, [facility] Provider [address] [place] [address] PCP - General [facility] Medicine 12/06/23 Metal Technician Relationship Specialty Start Date End Date Wild Centeno DO [address] [place] [address] PCP - [facility] Medicine 11/30/17 Metal Technician Relationship Specialty Start Date End Date Wild Centeno DO [address], [place] [address] PCP - [facility] Medicine 11/30/17 Goals (unrecognized section and content) [...] total knee replacement using cement, left Procedures CT MANUAL THERAPY TQS 1/> REGIONS EACH 15 MINUTES PHYS/OCC THERAPY SS CT THERAPEUTIC PX 1/> AREAS EACH [address] THER PX 1/> AREAS EACH 15 MIN NEUROMUSC REEDUCA Aly Higgins MD [address] [place] [address] Aman Yu, PT [address] [address] Referral ID Status Reason Start Date Expiration Date Visits Re quested Visits Authorized [id number] Closed 11/07/2023 10/19/2024 1 10 Referral ID Status Reason Start Date Expiration Date V isits Requested Visits Authorized [id number] Authorized 12/19/2023 10/02/2025 28 28 Reason Comments [...] BE BASED ON THE PRIMARY CLINICAL RECORDS. [email or web address] [facility]. provides no warranty or guarantee of the accuracy or completeness of information in this document.
[2023-12-30 10:24] LABS: Anion Gap 15.6; BUN Creatinine Ratio 25.2; Calcium 9.3 mg/dL (8.5-10.1); Chloride 104 mmol/L (98-107); Estimated GFR (African America >60 (>=60); Estimated GFR (Non-African Ame 50 (>=60); Glucose 128 mg/dL (74-106); Potassium 4.6 mmol/L (3.5-5.1); Sodium 142 mmol/L (136-145)
== END 2023-12-30 09:55 | disposition home or self-care (01) ==
LOC: LAB 09:54
PROVIDERS: PCP Family Medicine; Visit Provider Internal Medicine Cardiovascular Disease
DX: I13.0 Hypertensive heart and chronic kidney disease with heart failure and stage 1 through stage 4 chronic kidney disease, or unspecified chronic kidney disease (principal); I50.9 Heart failure, unspecified; R60.0 Localized edema; E11.22 Type 2 diabetes mellitus with diabetic chronic kidney disease; N18.31 Chronic kidney disease, stage 3a; E87.5 Hyperkalemia
CPT/HCPCS: 36415; 80048; 83735; 83880

== ENCOUNTER 2024-03-23 09:58 | Outpatient (OUT) | payer MEDICARE, OTHER, SELFPAY ==
--- OUTSIDE RECORDS SUMMARY | 2024-03-23 10:22 | XMS_ITS | CCD ---
Author Organization [facility] Care Team Providers Care Catering Chef Name Role Phone Furlong, Wild G Unavailable Unavailable Scheufele, Presybeterian Unavailable Unavailable Furlong, DO Wild Primary Care Provider MD Bang Nunez Attending Provider Unavailable MD Mohan Mccartney Referring Provider Furlong, DO Wild Primary Care Provider MD Bang uNnez Attending Provider Unavailable MD Mohan Mccartney Referring [...] Referring Provider MD Rose Ohara Attending Provider Furlong, DO Wild Primary Care Provider MD Mohan Mccartney Referring Provider MD Rose Ohara Attending Provider [phone] RONALDO, ALY E Referring Unavailable RONALDO, ALY E Admitting Unavailable RONALDO, ALY E Attending Unavailable VALENTINE PICKERING Consulting Unavailable HELDERLONG, WILD G Primary Care Unavailable Aly Higgins MD Attending Unavail able Furlong, DO Wild Primary Care Provider Bonita, SHELTER SUPERVISOR-C Irma Attending Provider [phone] MD Mohan Mccartney Referring Provider MD Rose Ohara Attending Provider MD Mohan Mccartney Referring Provider [phone] MD Rose Ohara Attending Provider Unallocated, Noms Provider Primary Care Provider Helderlong, Wild Primary Care Unavailable Mohan Mccartney Referring Unavailable Lev, Rose Attending Unavailable Lev, Rose Admitting Unavailable Furlong, Wild Primary Care Unavailable Bonita, Irma Attending Unavailable Bonita, Irma Admitting Unavailable Furlong DO, Wild G Primary Care Provider [phone] KELBLEY, IRMA Attending Unavailable RONALDO, ALY E [...] Attending Unavailable RONALDO, ALY E Referring Unavailable AMAN YU Attending Unavailable RONALDO, ALY E Referring Unavailable AMAN YU Attending Unavailable BRINK, VIRGINIA Attending Unavailable RONALDO, ALY E Referring Unavailable BRINK, VIRGINIA Attending Unavailable RONALDO, ALY E Referring Unavailable KELBLEY, IRMA Attending Unavailable RONALDO, ALY E Referring Unavailable SHAN HASKINS Attending Unavailable KELBLEY, IRMA Attending Unavailable RONALDO, ALY E Referring Unavailable KELBLEY, IRMA Attending Unavailable RONALDO, ALY E Referring Unavailable KELBLEY, IRMA Attending Unavailable RONALDO, ALY E Referring Unavailable WITHERELL, SHELMITH Attending Unavailable BONITA, IRMA Attending Unavailable ALGHOTHANI, BRENDAD Attending Unavailable WITHERELL, SHELMITH Attending Unavailable FURLONG, WILD G Referring Unavailable FURLONG, WILD G Primary Care Unavailable FURLONG, WILD G Attending Unavailable FURLONG, WILD G Referring Unavailable FURLONG, WILD G Primary Care Unavailable FURLONG, WILD G Referring Unavailable FURLONG, WILD G Primary Care Unavailable FURLONG, WILD G Attending Unavailable FURLONG, WILD G Referring Unavailable FURLONG, WILD G Primary Care Unavailable Allergies Allergy Classification Reported Allergen(s) Allergy Type Date of Onset Reaction(s) Facility (1 source) No Alert Propensity to adverse reactions to drug 1 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 Medications Current Medications Medication Drug Class(es) Dates Sig (Normalized) Sig (Original) allopurinol 100 mg oral tablet (5 sources) Xanthine Oxidase Inhibitor Start: 12-23-2023 take 1 tablet by mouth in the morning allopurinoL (ZYLOPRIM) 100 mg tablet Take 1 tablet (100 mg total) by mouth in the morning. Start after flare up resolves. 30 tablet 2 12/23/2023 Active amLODIPine 5 mg oral tablet (13 sources) Dihydropyridine Calcium Channel Sophy Start: 04-11-2019 End: 12-26-2023 take 1 tablet by mouth once daily in the morning amLODIPine (NORVASC) 5 mg tablet take 1 tablet by mouth every morning 90 tablet 1 12/26/2023 Active aspirin 81 mg delayed release oral tablet (19 sources) Platelet Aggregation Inhibitor, Nonsteroidal Anti-inflammatory Drug Start: 10-01-2020 take 81 mg by mouth once daily Aspirin Active 81 MG PO Daily October 01, 2020 12:00am Start: 04-11-2019 End: 04-13-2019 take 81 mg by mouth once daily Aspirin Discontinued 81 MG PO Daily April 10, 2019 11:00pm April 13, 2019 12:11pm blood-glucose sensor (DEXCOM G7 SENSOR) device (5 sources) Start: 10-26-2023 blood-glucose sensor (DEXCOM G7 SENSOR) device Indications: 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 ([facility]) 1 Unit by miscellaneous route every 10 days. 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 ([facility]) take 1 tablet by mouth twice a [...] days. 8 tablet 0 12/23/2023 12/27/2023 Active ergocalciferol 1.25 mg oral capsule (2 sources) Provitamin D2 Compound Start: 01-15-2024 take 1 capsule by mouth every week ergocalciferol (DRISDOL) 1,250 mcg (50,000 unit) capsule Take 1 capsule (50,000 Units total) by mouth once a week. 12 capsule 1 01/15/2024 Active furosemide 20 mg oral tablet (19 sources) Loop Diuretic Start: 12-16-2023 take 1 tablet by mouth once daily furosemide (LASIX) 20 mg tablet take 1 tablet by mouth once daily 0 12/16/2023 Active Start: 01-11-2022 take 1 tablet by montrell once daily Furosemide (Lasix) 40 mg Tablet Active 40 MG PO Daily January 11, 2022 12:00am Start: 12-30-2021 End: 01-11-2022 take 1 tablet by mouth once daily Furosemide (Lasix) 20 mg Tablet Discontinued 20 MG PO Daily December 30, 2021 12:00am January 11, 2022 1:27pm 3 ml insulin aspart, human 100 unt/ml pen injector (5 sources) Insulin Analog Start: 07-13-2023 insulin aspart U-100 (NovoLOG FlexPen U-100 Insulin) 100 unit/mL (3 mL) insulin pen Inject 6 Units under the skin in the morning and 6 Units at noon and 6 Units in the evening. Inject with meals. 15 mL 1 07/13/2023 Active lisinopril 40 mg oral tablet (12 sources) Angiotensin Converting Enzyme Inhibitor Start: 04-11-2019 take 1 tablet by mouth once daily lisinopriL (PRINIVIL,ZESTRIL ) 40 mg tablet take 1 tablet by mouth once daily 90 tablet 1 07/08/2023 Active magnesium oxide 400 mg oral tablet (6 sources) Start: 01-15-2024 magnesium oxid e 400 mg magnesium tablet Magnesium 90 tablet 1 01/15/2024 Active End: 01-15-2024 magnesium oxide 400 mg magne sium tablet Magnesium 0 01/15/2024 Discontinued (Reorder) metFORMIN hydrochloride 1000 mg oral tablet (12 sources) Biguanide Start: 04-11-2019 take 1 tablet [...] 11:00pm rosuvastatin calcium 10 mg oral tablet (12 sources) HMG-CoA Reductase Inhibitor Start: 04-11-2019 take 1 tablet by mouth once daily rosuvastatin (CRESTOR) 10 mg tablet take 1 tablet by mouth once daily 90 tablet 1 08/30/2023 Active spironolactone 25 mg oral tablet (13 sources) Aldosterone Antagonist Start: 12-30-2021 End: 02-02-2024 take 1 tablet by mouth once daily in the morning spironolactone (ALDACTONE) 25 mg tablet take 1 tablet by mouth every morning 30 tablet 5 02/02/2024 Active Vit C-E-Zinc Jty-Dqgits-Snhksm ([facility]) 50 mg-15 unit- 4.5 mg-2.5 mg Tablet,Chewable (7 sources) Start: 04-11-2019 take 1 tablet by mouth once daily Vit C-E-Zinc Gzz-Kdbvju-Vyhuxc ([facility]) 50 mg-15 unit- 4.5 mg-2.5 mg Tablet,Chewable Active 1 TAB PO Daily April 11, 2019 8:39am Start: 04-11-2019 take 1 tablet by montrell th once daily Vit C-E-Zinc Jbe-Grlyhi-Mojpcz ([facility]) 50 mg-15 unit- 4.5 mg-2.5 mg Tablet,Chewable Active 1 TAB PO Daily April 10, 2019 11:00pm Start: 04-11-2019 take 1 tablet by montrell th once daily Vit C-E-Zinc Gnh-Gyabtq-Hayvuw ([facility]) 50 mg-15 unit- 4.5 mg-2.5 mg Tablet,Chewable Active 1 TAB PO Daily April 11, 2019 12:00am (1 source) Completed/Discontinued Medications Medication Drug Class(es) Dates Sig (Normalized) Sig (Original) alendronic acid 35 mg oral tablet (12 sources) Bisphosphonate Start: 04-11-20 End: 12-15-19 24 take 35 mg by mouth every week Alendronate Discontinued 35 MG PO every week April 10, 2019 11:00pm December 15, 2023 10:19am amoxicillin 500 mg oral capsule (7 sources) Penicillin-class Antibacterial Start: 04-11-20 End: 04-13-20 19 take 500 mg by mouth three times [...] sources) Sodium-Glucose Cotransporter 2 Inhibitor Start: 03-31-20 End: 04-13-20 take 1 tablet by mouth once daily [...] MILD] Onset: 03-07-20 Chronic Chronic kidney disease (5 sources) Chronic kidney disease; Translations: [Hypertensive chronic kidney disease with stage 1 through stage 4 chronic kidney disease, or unspecified chronic kidney disease] Onset: 08-05-20 Complications of surgical procedures or medical care (5 sources) Dehiscence of surgical wound; Translations: [Disruption of external operation (surgical) wound, not elsewhere classified, initial encounter] Onset: 12-23-19 24 12-23-2023 Episodic Congestive heart failure; nonhypertensive (2 sources) Chronic diastolic (congestive) heart failure; Translations: [Chronic diastolic (congestive) heart failure] Onset: 08-29-20 Chronic Diabetes mellitus with complications (15 sources) Type 2 diabetes mellitus with diabetic chronic kidney disease; Translations: [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 3 due to type 2 diabetes mellitus] Onset: 08-05-20 Chronic Diabetes mellitus without complication (20 sources) Diabetes mellitus; Translations: [Type 2 diabetes mellitus without complications] Onset: 03-04-20 16 02-09-2021 Chronic Disorders of lipid metabolism (17 sources) Mixed hyperlipidemia; Translations: [Mixed hyperlipidemia] Onset: 12-25-19 Chronic Essential hypertension (8 sources) Essential (primary) hypertension; Translations: [Essential hypertension] Onset: 08-05-20 22 08-05-2022 Chronic Gout and other crystal arthropathies (5 sources) 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; Translations: [Gout due to renal impairment, right ankle and foot] Onset: 12-23-19 24 12-23-2023 Chronic Hypertension with complications and secondary hypertension (10 sources) Hypertensive chronic kidney disease with stage 1 through stage 4 chronic kidney disease, or unspecified chronic kidney disease; Translations: [Chronic kidney disease stage 2] Onset: 02-17-20 Resolved : 03-14-20 23 03-14-2023 Chronic Maintenance chemotherapy; radiotherapy (17 sources) Patient encounter status; Translations: [Encounter for antineoplastic immunotherapy] 02-09-2021 Chronic Melanomas of skin (20 sources) Malignant melanoma of upper arm; Translations: [Malignant melanoma] Onset: 08-21-2002-09-2021 Chronic Osteoarthritis (18 sources) Osteoarthritis of left knee joint; Translations: [...] Onset: 10-03-20 Chronic Other connective tissue disease (5 sources) History of total knee arthroplasty; Translations: [Presence of left artificial knee joint] Onset: 10-03-2012-23-2023 Chronic Other connective tissue disease (1 source) [...] of diencephalohypophyseal origin] Chronic Other gastrointestinal disorders (5 sources) Irritable bowel syndrome; Translations: [Irritable bowel syndrome without diarrhea] Onset: 02-04-20 17 08-05-2022 Chronic Other liver diseases (5 sources) Fatty (change of) liver, not elsewhere classified; Translations: [Other chronic nonalcoholic liver disease] Onset: 02-17-20 22 08-05-2022 Chronic Other lower respiratory disease (2 sources) Other forms of dyspnea; Translations: [Other forms of dyspnea] Onset: 12-02-19 24 Episodic Other non-traumatic joint disorders (3 sources) Pain in left knee; Translations: [Pain in joint, lower leg] 12-14-2023 Episodic Other non-traumatic joint disorders (3 sources) Stiffness of left knee; Translations: [Stiffness of left knee, not elsewhere classified] 12-14-2023 Episodic Other nutritional; endocrine; and metabolic disorders (5 sources) Metabolic syndrome X; Translations: [Metabolic syndrome X] Onset: 08-05-20 22 08-05-2022 Chronic Other nutritional; endocrine; and metabolic disorders (6 sources) Morbid obesity; Translations: [Morbid (severe) obesity [...] Localized edema; Translations: [Localized edema] Onset: 12-02-19 24 Episodic Spondylosis; intervertebral disc disorders; other back problems (5 sources) Degeneration of thoracic intervertebral disc; Translations: [...] Da te Episodic/Chronic Fluid and electrolyte disorders (12 sources) Hypokalemia; Translations: [Hypokalemia] Onset: 02-03-2017 Resolved: 03-14-2023 03-14-2023 Episodic Mood disorders (5 sources) Mood disorders Onset: 12-23-2023 Resolved: 01-11-2024 12-23-2023 Other aftercare (3 sources) termination clerk (current) use of insulin; Translations: [PENITENTIARY CURRENT USE OF INSULIN] Onset: 08-05-2022 Episodic Other and ill-defined heart disease (5 sources) Diastolic dysfunction; Translations: [Other ill-defined heart diseases] Onset: 12-02-2021 Resolved: 12-23-2023 12-23-2023 Chronic Other gastrointestinal disorders (4 sources) Diarrhea, unspecified; Translations: [DIARRHEA UNSPECIFIED] Onset: 08-11-2022 Episodic Other lower respiratory disease (4 sources) Dyspnea, unspecified; Translations: [DYSPNEA UNSPECIFIED] Onset: 04-29-2022 Episodic Other lower respiratory disease (5 sources) Dyspnea on exertion; Translations: [Other forms of dyspnea] Onset: 12-25-2021 Resolved: 12-23-2023 12-23-2023 Episodic Other non-traumatic joint disorders (5 sources) Pain in wrist; Translations: [Pain in unspecified wrist] Onset: 09-06-2022 Resolved: 04-15-2023 04-15-2023 Episodic Pancreatic disorders (not diabetes) (5 sources) Pancreatitis; Translations: [Acute pancreatitis without necrosis or infection, unspecified] Onset: 08-05-2022 Resolved: 09-06-2022 09-06-2022 Episodic Skull and face fractures (5 sources) Fracture of orbital floor; Translations: [Fracture of orbital floor, unspecified side, initial encounter for closed fracture] Onset: 04-03-2019 Resolved: 08-10-2022 08-10-2022 Episodic Results Test Name Value Interpretation Reference Range Facility COMPREHENSIVE METABOLIC PANE [facility] [place] 01-11-2024 Albumin [Mass/Vol] 4.2 g/dL Normal 3.2-5.[address] [facility] Comment on above: Performed By: #### C SHANTE, 58162-5, 47865-6, 2777-1, 3084-1, 2731-8, 90542-0 #### [facility] ([id number]) [address], [address] [place] [address] ALP [Catalytic activity/Vol] 74 U/L Normal 39-130 [facility] Comment on above: Performed By: #### C SHANTE, 22052-0, 28624-9, 2777-1, 3084-1, 2731-8, 89830-4 #### [facility] ([id number]) [address], [address] [place] [address] ALT [Catalytic activity/Vol] 16 U/L Normal 0-31 [facility] Comment on above: Performed By: #### C MP, 14444-1, 55005-2, 2777-1, 3084-1, 2731-8, 01575-0 #### [facility] ([id number]) [address], [address] [place] [address] Anion gap [Moles/Vol] 11 mmol/L Normal 5-15 [facility] Comment on above: Performed By: #### C MP, 50361-5, 90345-1, 2777-1, 3084-1, 2731-8, 32468-6 #### [facility] ([id number]) [address], [address] [place] [address] AST [Catalytic activity/Vol] 13 U/L Normal 0-41 [facility] Comment on above: Performed By: #### C SHANTE, 65530-4, 01194-0, 7-1, 3084-1, 2731-8, 29209-6 #### [facility] ([id number]) [address], [address] [place] [address] Bilirubin [Mass/Vol] 0.9 mg/dL Normal 0.3-1.2 [facility] Comment on above: Performed By: #### [place], 61186-9, 04378-5, 2777-1, 3084-1, 2731-8, 30865-1 #### [facility] ([id number]) [address], [address] [place] [address] Calcium [Mass/Vol] 9.7 mg/dL Normal 8.5-10.[address] [facility] Comment on above: Performed By: #### C MP, 25699-3, 15269-3, 2777-1, 3084-1, 2731-8, 03486-0 #### [facility] ([id number]) [address], [address] [place] [address] Chloride [Moles/Vol] 106 mmol/L Normal 98-109 [facility] Comment on above: Performed By: #### C MP, 09168-2, 15739-3, 2777-1, 3084-1, 2731-8, 13537-4 #### [facility] ([id number]) [address], [address] [place] [address] CO2 [Moles/Vol] 24 mmol/L Normal 22-32 [facility] Comment on above: Performed By: #### C MP, 93573-1, 85822-2, 2777-1, 3084-1, 2731-8, 40808-3 #### [facility] ([id number]) [address], [address] [place] [address] Creatinine [Mass/Vol] 0.84 mg/dL Normal 0.40-1.00 [facility] Comment on above: Result Comment: METH OD TRACEABLE TO IDMS STANDARD Performed By: #### C SHANTE, 86127-3, 03416-2, 7-1, 3084-1, 2731-8, 68599-7 #### [facility] ([id number]) [address], [address] [place] [address] GFR/1.73 sq M.predicted among non-blacks MDRD (S/P/Bld) [Vol rate/Area] 73 mL/min/{1.73_m2} Normal >59 [facility] Comment on above: Result Comment: Reported eGFR is based on the CKD-EPI 2020 equation that does not use a race coefficient. Performed By: #### C MP, 43398-7, 93312-9, 2777-1, 3084-1, 2731-8, 35741-7 #### [facility] ([id number]) [address], [address] [place] [address] Glucose [Mass/Vol] 132 mg/dL High 65-[address] [facility] Comment on above: Performed By: #### C MP, 18421-1, 79270-4, 2777-1, 3084-1, 2731-8, 88167-8 #### [facility] ([id number]) [address], [address] [place] [address] Potassium [Moles/Vol] 4.9 mmol/L Normal 3.5-5.0 [facility] Comment on above: Performed By: #### C MP, 01942-1, 01150-4, 2777-1, 3084-1, 2731-8, 64165-3 #### [facility] ([id number]) [address], [address] [place] [address] Protein [Mass/Vol] 6.9 g/dL Normal 6.0-8.[address] [facility] Comment on above: Performed By: #### C SHANTE, 50383-1, 36487-2, 2777-1, 3084-1, 2731-8, 50480-1 #### [facility] ([id number]) [address], [address] [place] [address] Sodium [Moles/Vol] 141 mmol/L Normal 134-[address] [facility] Comment on above: Performed By: #### C SHANTE, 24898-2, 31991-1, 2777-1, 3084-1, 2731-8, 93041-3 #### [facility] ([id number]) [address], [address] [place] [address] Urea nitrogen [Mass/Vol] 21 mg/dL Normal 5-27 [facility] Comment on above: Performed By: #### C MP, 94910-0, 02339-9, 2777-1, 3084-1, 2731-8, 50704-5 #### [facility] ([id number]) [address], [address] [place] [address] Comprehensive metabolic [facility] [place] 01-11-2024 Albumin [Mass/Vol] 4.2 g/dL 3.2 - 5.3 g/dL [facility] ALP [Catalytic activity/Vol] 74 U/L 39 - 130 U/L [facility] ALT No additional P-5'-P [Catalytic activity/Vol] 16 U/L 0 - 31 U/L [facility] Anion gap [Moles/Vol] 11 mmol/L 5 - 15 mmol/L [facility] AST [Catalytic activity/Vol] 13 U/L 0 - 41 U/L [facility] Bilirubin [Mass/Vol] 0.9 mg/dL 0.3 - 1 .2 mg/dL [facility] Calcium [Mass/Vol] 9.7 mg/dL 8.5 - 10. 5 mg/dL [facility] Chloride [Moles/Vol] 106 mmol/L 98 - 10 9 mmol/L [facility] CO2 [Moles/Vol] 24 mmol/L 22 - 32 mmol/L [facility] Creatinine [Mass/Vol] 0.84 mg/dL 0.40 - 1.00 mg/dL [facility] Comment on above: METHOD TRACEABLE TO [facility] STANDARD eGFR (CKD-EPI)non-race dependent 73 - PINF [facility] Comment on above: Reported eGFR is based on the CKD-EPI 2020 equation that does not use a race coefficient. Glucose [Mass/Vol] 132 mg/dL High 65 - 99 mg/dL [facility] Potassium [Moles/Vol] 4.9 mmol/L 3.5 - 5.0 mmol/L [facility] Protein [Mass/Vol] 6.9 g/dL 6.0 - 8.0 g/dL [facility] Sodium [Moles/Vol] 141 mmol/L 134 - 146 mmol/L [facility] Urea nitrogen [Mass/Vol] 21 mg/dL 5 - 27 mg/dL [facility] HGB A1C (GLYCO-HGB)on 2023 Glucose [Mass/Vol] 171 mg/dL Normal [facility] Comment on above: Performed By: #### C MP, 14634-8, 14978-9, 2777-1, 3084-1, 2731-8, 99574-5 #### [facility] ([id number]) [address], [address] [place] [address] HbA1c (Bld) [Mass fraction] 7.6 % High 4.4-5.6 [facility] Comment on above: Result Comment: NOTE ADA Guidelines Result HgbA1c Normal : less than 5.7 % Prediabetes : 5.7 % to 6.4 % Diabetes : > 6.4 % Use with caution in patients with abnormal hemoglobin variants as the half-life of red blood cells and in vivo glycation rates are affected. Performed By: #### C , 65501-2, 42342-5, 2777-1, 3084-1, 2731-8, 95723-1 #### [facility] ([id number]) [address] [place] [address] [address] [place] [address] Hemoglobin A1con 01-11-2024 Average glucose Estimated from glycated hemoglobin (Bld) [Mass/Vol] 171 mg/dL [facility] HbA1c (Bld) [Mass fraction] 7.6 % High 4.4 - 5.6 % [facility] Comment on above: NOTE ADA Guidelines Result HgbA1c Normal : less than 5.7 % Prediabetes : 5.7 % to 6.4 % Diabetes : > 6.4 % Use with caution in patients with abnormal hemoglobin variants as the half-life of red blood cells and in vivo glycation rates are affected. Interpretation and review of laboratory results Abnormal [facility] Lipid 1996 panelon Cholesterol [Mass/Vol] 104 mg/dL Low 150 - 200 mg/dL [facility] Cholesterol in HDL [Mass/Vol] 46 mg/dL 39 - PINF mg/dL [facility] Comment on above: HDL <40 mg/dL - High Risk HDL > or = 40mg/dL- Desirable HDL >60 mg/dL - Negative Risk Cholesterol in LDL [Mass/Vol] 19 mg/dL NINF - 130 mg/dL [facility] Comment on above: LDL <100 mg/dL - Desirable LDL >160 mg/dL - High Risk Cholesterol in VLDL [Mass/Vol] 39 mg/dL High 0 - 30 mg/dL [facility] Cholesterol.total/Chol esterol in HDL [Mass ratio] 2.3 {ratio} 1.0 - 5.0 [facility] Triglyceride [Mass/Vol] 194 mg/dL High 27 - 150 mg/dL [facility] Cholesterol [Mass/Vol] 104 mg/dL Low 150-200 [facility] Comment on above: Performed By: #### C , 64164-8, 20882-9, 2777-1, 3084-1, 2731-8, 86303-3 #### [facility] ([id number]) [address], [address] [place] [address] Cholesterol in HDL [Mass/Vol] 46 mg/dL Normal >39 [facility] Comment on above: Result Comment: HDL <40 mg/dL - High Risk HDL > or = 40mg/dL- Desirable HDL >60 mg/dL - Negative Risk Performed By: #### C , 56279-9, 12032-8, 2777-1, 3084-1, 2731-8, 32815-8 #### [facility] ([id number]) [address], [address] [place] [address] Cholesterol in LDL [Mass/Vol] 19 mg/dL Normal <130 [facility] Comment on above: Result Comment: LDL <100 mg/dL - Desirable LDL >160 mg/dL - High Risk Performed By: #### C MP, 70523-5, 13652-8, 2777-1, 3084-1, 2731-8, 51333-7 #### [facility] ([id number]) [address], [address] [place] [address] Cholesterol in VLDL [Mass/Vol] 39 mg/dL High 0-30 [facility] Comment on above: Performed By: #### C SHANTE, 84719-2, 13496-8, 2777-1, 3084-1, 2731-8, 31109-6 #### [facility] ([id number]) [address], [address] [place] [address] CHOLESTEROL:HDL 2.3 Normal 1.0-5.0 [facility] Comment on above: Performed By: #### C SHANTE, 06345-9, 00678-2, 7-1, 3084-1, 2731-8, 20282-8 #### [facility] ([id number]) [address], [address] [place] [address] Triglyceride [Mass/Vol] 194 mg/dL High 27-150 [facility] Comment on above: Performed By: #### C SHANTE, 69127-6, 23077-8, 2777-1, 3084-1, 2731-8, 13452-7 #### [facility] ([id number]) [address] [address] [place] [address] MAGNESIUMon 01-11-2024 Magnesium [Mass/Vol] 1.7 mg/dL Low 1.8-2.6 [facility] Comment on above: Performed By: #### [place], [address]-5, 36673-3, 2777-1, 3084-1, 2731-8, 25261-0 #### [facility] ([id number]) [address], [address] [place] [address] Magnesiumon 01-11-2024 Magnesium [Mass/Vol] 1.7 mg/dL Low 1.8 - 2 .6 mg/dL [facility] No Panel Informationon 01-10 Interpretation and review of laboratory results Abnormal [facility] PHOSPHORUSon 01-11-2024 Phosphate [Mass/Vol] 3.7 mg/dL Normal 2.4-4.9 [facility] Comment on above: Performed By: #### C SHANTE, 53319-2, 89908-5, 2777-1, 3084-1, 2731-8, 23129-7 #### [facility] ([id number]) [address], [address] [place] [address] Parathyrin.intact [Mass/Vol] on 01-11-2024 [facility] PTH INTACT 61 pg/mL Normal 12-88 [facility] Comment on above: Performed By: #### Andres FREY, 05787-4, 14887-2, 7-1, 3084-1, 2731-8, 05934-5 #### [facility] ([id number]) [address] [place] [address] Parathyroid Hormone, intacto n 01-11-2024 Parathyrin.intact [Mass/Vol] 61 pg/mL 12 - 88 pg/mL [facility] Phosphoruson 01-11-2024 Phosphate [Mass/Vol] 3.7 mg/dL 2.4 - 4 .9 mg/dL [facility] URIC ACIDon 01-11-2024 Urate [Mass/Vol] 6.6 mg/dL Normal 2.6-7.2 [facility] Comment on above: Performed By: #### C SHANTE, 28324-1, 79584-6, 2777-1, 3084-1, 2731-8, 76574-2 #### [facility] ([id number]) [address] [place] [address] Uric acidon 01-11-2024 Urate [Mass/Vol] 6.6 mg/dL 2.6 - 7.2 mg/dL [facility] Vitamin D 25 hydroxyon 01-10 Vitamin D+Metabolites [Mass/Vol] 11.1 ng/mL Low 30 - 100 ng/mL [facility] Comment on above: Vitamin D status 25 [place] Vitamin D Deficiency <20 ng/mL Insufficiency 20-29 ng/mL Sufficiency 30-100 ng/mL Toxicity >100 ng/mL NOTE: A pediatric reference range has not been established by the supervisor seaming of this kit. [employer] [place] [employer] recommends a Vitamin D level of = or >20ng/mL in infants and children. Vitamin D+Metabolites [Mass/ Vol]on 01-11-2024 Interpretation and review of laboratory results Abnormal [facility] VITAMIN D 25 HYD TOT 11.1 ng/mL Low 30-100 [facility] Comment on above: Result Comment: Vitamin D status 25 [place] Vitamin D Deficiency <20 ng/mL Insufficiency 20-29 ng/mL Sufficiency 30-100 ng/mL Toxicity >100 ng/mL NOTE: A pediatric reference range has not been established by the supervisor seaming of this kit. [place] [employer] recommends a Vitamin D level of = or >20ng/mL in infants and children. Performed By: #### C , 66925-1, 23821-0, 2777-1, 3084-1, 2731-8, 65851-4 #### [facility] ([id number]) [address] [place] [address], [address] [place] [address] Office Visiton 12-30-2023 Follow-up visit [id number] Renee Mcneal 1950 F Date Provider Department Center 12/30/2023 38[facility] Family History Problem Relation Age of Onset Coronary artery disease Father Heart attack Father Family Status - Relation Status Age at Father Level of Service:85408 [place] OFFICE/OUTPATIENT ESTABLISHED LOW MDM 20 MIN Normal [facility] 36on 12-22-2023 35 ELIZABETH Campos MA Please let her know her Echo looks very good- better than the one in 2021. Normal EF- LV function, no diastolic dysfunction, no significant valve issues. Very good. Regarding echo performed on 12/20/2023 Patient informed. She verbalized understanding. Normal [facility] Alanine aminotransferase [En zymatic activity/volume] in Serum or PlasmaOrdered By: Farhana Sotomayor on 12-13-2023 ALT [Catalytic activity/Vol] 12 U/L 7-52 [facility] Albumin [Mass/volume] in Ser um or Plasma by Bromocresol green (BCG) dye binding methoOrdered By: Farhana [facility] 12-13-2023 Albumin BCG dye [Mass/Vol] 4.0 g/dL 3.5-5.7 [facility] Alkaline phosphatase [Enzyma tic activity/volume] in Serum or PlasmaOrdered By: Farhana [facility] 12-13-2023 ALP [Catalytic activity/Vol] 55 U/L 34-104 [facility] Aspartate aminotransferase [ Enzymatic activity/volume] in Serum or PlasmaOrdered By: Farhana Sotomayor on 12-13-2023 AST [Catalytic activity/Vol] 11 U/L 13-39 [facility] B-Type Natriuretic Peptideon 12-13-2023 Natriuretic peptide B (Bld) [Mass/Vol] 70.0 pg/mL Normal 5-100 [facility] Comment on above: Order Comment: Ashlieli felton order for this patient for CBC and CMP ordered under [facility] Acct. please forward a copy of report to Irma Mesa N.P. patient fasting 12 hrs Result Comment: PERF ORMED BY: [place] [address] PATHOLOGIST FILLING TECHNICIAN SHEBA RICO M.D. Performed By: #### M G, BNP #### [place] [address] [place] Basophils Auto (Bld) [#/Vol] Ordered By: Farhana Sotomayor on 12-13-2023 Basophils (Bld) [#/Vol] 0.1 10*3/uL 0.0-0.2 [facility] Basophils/100 WBC Auto (Bld) Ordered By: Farhana Sotomayor on 12-13-2023 Basophils/100 WBC (Bld) 1.2 % . [facility] Bilirubin.total [Mass/volume ] in Serum or PlasmaOrdered By: Farhana Sotomayor on 12-13-2023 Bilirubin [Mass/Vol] 0.8 mg/dL 0.3-1.[address] [facility] [address] abdomen pelvis w conon CT abdomen pelvis w con [facility] [place] [address] [place], [place] [id number] CT Scan Report Signed Patient: Tosha Mcneal MR#: [id number] : 1950 Acct:[id number] Age/Sex: 73 / F ADM Date: 12/13/23 Loc: XT Room: Type: [facility] RCR Attending Dr: Rose Ohara MD Copies to: MD Farhana Gutierrez APRN Ordering Provider: Farhana Sotomayor APRN Date of Service: 12/13/23 CT/CT abdomen pelvis w con: surveillance melanoma ([id number]) CT/CT chest w con: surveillance melanoma CT [...] Omid Echevarria M.D.12/13/2023 2:39 PM Dictation Location: [place] [address] Transcribed By: [facility] 12/13/23 1439 Dictated By: Omid Echevarria DO 12/13/23 1430 Signed By: 12/13/23 1439 Normal [facility] Calcium [Mass/volume] in Ser um or PlasmaOrdered By: Farhana Sotomayor on 12-13-2023 Calcium [Mass/Vol] 9.3 mg/dL 8.6-10.3 [facility] Carbon dioxide, total [Moles /volume] in Serum or PlasmaOrdered By: Farhana Sotomayor on 12-13-2023 CO2 [Moles/Vol] 26.9 mmol/L 21.0-31.0 [facility] Chloride [Moles/volume] in S marlena or PlasmaOrdered By: Farhana Sotomayor on 12-13-2023 Chloride [Moles/Vol] 103 mmol/L 98-107 [facility] Complete Blood Count Auto Di ffon 12-13-2023 Basophils (Bld) [#/Vol] 0.1 10*3/uL Normal 0.0-0.2 [facility] Comment on above: Result Comment: PERF ORMED BY: [place] [address] PATHOLOGIST FILLING TECHNICIAN SHEBA RICO M.D. Performed By: #### C BC #### [address] Basophils/100 WBC (Bld) 1.2 % Normal . [facility] Comment on above: Performed By: #### C BC #### [address] Eosinophils (Bld) [#/Vol] 0.2 10*3/uL Normal 0.0-0.45 [facility] Comment on above: Performed By: #### C BC #### [address] Eosinophils/100 WBC (Bld) 2.4 % Normal . [facility] Comment on above: Performed By: #### C BC #### [address] Erythrocyte distribution width (RBC) [Ratio] 16.0 % High 11.9-15.3 [facility] Comment on above: Performed By: #### C BC #### [address] Hematocrit (Bld) [Volume fraction] 35.5 % Normal 34.0-46.4 [facility] Comment on above: Performed By: #### C BC #### [place] [address] [place] Hemoglobin (Bld) [Mass/Vol] 11.5 g/dL Low 11.8-15.4 [facility] Comment on above: Performed By: #### C BC #### [address] Lymphocytes (Bld) [#/Vol] 1.9 10*3/uL Normal 1.00-4.8 [facility] Comment on above: Performed By: #### C BC #### [address] Lymphocytes/100 WBC (Bld) 25.0 % Normal . [facility] Comment on above: Performed By: #### C BC #### [facility] [address] MCH (RBC) [Entitic mass] 28.3 pg Normal 24.7-34.3 [facility] Comment on above: Performed By: #### C BC #### [address] MCV (RBC) [Entitic vol] 87.2 fL Normal 80-100 [facility] Comment on above: Performed By: #### C BC #### [address] Mean Corpuscular HGB Conc 32.5 g/dL Normal 32.0-35.0 [facility] Comment on above: Performed By: #### C BC #### [address] Monocytes (Bld) [#/Vol] 0.6 10*3/uL Normal 0.0-0.8 [facility] Comment on above: Performed By: #### C BC #### [address] Monocytes/100 WBC (Bld) 8.3 % Normal . [facility] Comment on above: Performed By: #### C BC #### [address] Neutrophils (Bld) [#/Vol] 4.8 10*3/uL Normal 1.8-7.7 [facility] Comment on above: Performed By: #### C BC #### [address] Neutrophils/100 WBC (Bld) 63.1 % Normal . [facility] Comment on above: Performed By: #### C BC #### [place] [id number] [place] NRBC% 0.0 /100{WBC} Normal 0-0.5 [facility] Comment on above: Performed By: #### C BC #### [address] Platelet mean volume (Bld) [Entitic vol] 7.5 fL Normal 6.3-10.7 [facility] Comment on above: Performed By: #### C BC #### [address] Platelets (Bld) [#/Vol] 220 10*3/uL Normal 150-450 [facility] Comment on above: Performed By: #### C BC #### [address] RBC (Bld) [#/Vol] 4.07 10*6/uL Normal 3.60-5.00 [facility] Comment on above: Performed By: #### C BC #### [address] WBC (Bld) [#/Vol] 7.6 10*3/uL Normal 3.8-11.6 [facility] Comment on above: Performed By: #### C BC #### [address] Comprehensive Metabolic Pane [place] 12-13-2023 Albumin [Mass/Vol] 4.0 g/dL Normal 3.5-5.7 [facility] Comment on above: Order Comment: stat for CT Bun/creat patient has a duplicate for CMP and cbc for Irma Blackburns please send copy of report to her also. orders scanned in under Acct. [id number] Patient fasting since 0830 pm 0n 12/12/23 Performed By: #### C MP, LDH #### [address] Albumin/Globulin [Mass ratio] 1.5 {ratio} Normal [facility] Comment on above: Order Comment: stat for CT Bun/creat patient has a duplicate for CMP and cbc for Irma Blackburns please send copy of report to her also. orders scanned in under Acct. [id number] Patient fasting since 0830 pm 0n 12/12/23 Performed By: #### C MP, LDH #### [facility] [address] [place] [id number] [facility] ALP [Catalytic activity/Vol] 55 U/L Normal 34-104 [facility] Comment on above: Order Comment: stat for CT Bun/creat patient has a duplicate for CMP and cbc for Irma Bonita please send copy of report to her also. orders scanned in under Acct. [id number] Patient fasting since 0830 pm 0n 12/12/23 Performed By: #### C MP, LDH #### [facility] [address] [place] [id number] [facility] ALT [Catalytic activity/Vol] 12 U/L Normal 7-52 [facility] Comment on above: Order Comment: stat for CT Bun/creat patient has a duplicate for CMP and cbc for Irma Bonita please send copy of report to her also. orders scanned in under Acct. [id number] Patient fasting since 0830 pm 0n 12/12/23 Performed By: #### C MP, LDH #### [address] Anion gap [Moles/Vol] 14.4 mmol/L Normal 6.0-15.0 [facility] Comment on above: Order Comment: stat for CT Bun/creat patient has a duplicate for CMP and cbc for Irma Bonita please send copy of report to her also. orders scanned in under Acct. [id number] Patient fasting since 0830 pm 0n 12/12/23 Performed By: #### C MP, LDH #### [facility] [address] [place] [id number] [facility] AST [Catalytic activity/Vol] 11 U/L Low 13-39 [facility] Comment on above: Order Comment: stat for CT Bun/creat patient has a duplicate for CMP and cbc for Irma Bonita please send copy of report to her also. orders scanned in under Acct. [id number] Patient fasting since 0830 pm 0n 12/12/23 Performed By: #### C MP, LDH #### [facility] [address] [place] [address] [facility] Bilirubin [Mass/Vol] 0.8 mg/dL Normal 0.3-1.0 [facility] Comment on above: Order Comment: stat for CT Bun/creat patient has a duplicate for CMP and cbc for Irma Blackburns please send copy of report to her also. orders scanned in under Acct. [id number] Patient fasting since 0830 pm 0n 12/12/23 Performed By: #### C MP, LDH #### [facility] [address] [place] [address] [facility] Calcium [Mass/Vol] 9.3 mg/dL Normal 8.6-10.3 [facility] Comment on above: Order Comment: stat for CT Bun/creat patient has a duplicate for CMP and cbc for Irma Blackburns please send copy of report to her also. orders scanned in under Acct. [id number] Patient fasting since 0830 pm 0n 12/12/23 Performed By: #### C MP, LDH #### [facility] [address] [place] [address] [place] Chloride [Moles/Vol] 103 mmol/L Normal 98-107 [facility] Comment on above: Order Comment: stat for CT Bun/creat patient has a duplicate for CMP and cbc for Irma Blackburns please send copy of report to her also. orders scanned in under Acct. [id number] Patient fasting since 0830 pm 0n 12/12/23 Performed By: #### C MP, LDH #### [facility] [address] [place] [address] [place] CO2 [Moles/Vol] 26.9 mmol/L Normal 21.0-31.0 [facility] Comment on above: Order Comment: stat for CT Bun/creat patient has a duplicate for CMP and cbc for Irma Bonita please send copy of report to her also. orders scanned in under Acct. [id number] Patient fasting since 0830 pm 0n 12/12/23 Performed By: #### C MP, LDH #### [facility] [address] [place] [address] [place] Creatinine [Mass/Vol] 1.05 mg/dL Normal 0.60-1.20 [facility] Comment on above: Order Comment: stat for CT Bun/creat patient has a duplicate for CMP and cbc for Irma Mesa please send copy of report to her also. orders scanned in under Acct. [id number] Patient fasting since 0830 pm 0n 12/12/23 Performed By: #### C MP, LDH #### [facility] [address] [place], [place] [address] [facility] Creatinine Clr Calc Pharmacy 51.93 [facility] Comment on above: Order Comment: stat for CT Bun/creat patient has a duplicate for CMP and cbc for Irma Mesa please send copy of report to her also. orders scanned in under Acct. [id number] Patient fasting since 0830 pm 0n 12/12/23 Performed By: #### C MP, LDH #### [place] [id number] [facility] GFR/1.73 sq M.predicted MDRD (S/P/Bld) [Vol rate/Area] 55.755 mL/min/{1.73_m2} [facility] Comment on above: Order Comment: stat for CT Bun/creat patient has a duplicate for CMP and cbc for Irma Mesa please send copy of report to her also. orders scanned in under Acct. [id number] Patient fasting since 0830 pm 0n 12/12/23 Performed By: #### C MP, LDH #### [facility] [address] [place], [place] [address] [facility] Globulin (S) [Mass/Vol] 2.7 g/dL [facility] Comment on above: Order Comment: stat for CT Bun/creat patient has a duplicate for CMP and cbc for Irma Mesa please send copy of report to her also. orders scanned in under Acct. [id number] Patient fasting since 0830 pm 0n 24 Performed By: #### C MP, LDH #### [facility] [address] [place] [address] [facility] Glucose [Mass/Vol] 135 mg/dL High 70-100 [facility] Comment on above: Order Comment: stat for CT Bun/creat patient has a duplicate for CMP and cbc for Irma Blackburns please send copy of report to her also. orders scanned in under Acct. [id number] Patient fasting since 0830 pm 0n 12/12/23 Result Comment: Melvin Glucose Reference Range is dependent on time and content of last meal. Glucose of more than 200 mg/dL in a nonstressed, ambulatory subject supports the diagnosis of Diabetes Mellitus. ADA recommended reference range Performed By: #### C MP, LDH #### [facility] [address] [place] [id number] [facility] Potassium [Moles/Vol] 5.3 mmol/L High 3.5-5.1 [facility] Comment on above: Order Comment: stat for CT Bun/creat patient has a duplicate for CMP and cbc for Irma Mesa please send copy of report to her also. orders scanned in under Acct. [id number] Patient fasting since 0830 pm 0n 12/12/23 Performed By: #### C MP, LDH #### [facility] [address] [place] [id number] [facility] Protein [Mass/Vol] 6.7 g/dL Normal 6.4-8.9 [facility] Comment on above: Order Comment: stat for CT Bun/creat patient has a duplicate for CMP and cbc for Irma Blackburns please send copy of report to her also. orders scanned in under Acct. [id number] Patient fasting since 0830 pm 0n 12/12/23 Performed By: #### C MP, LDH #### [facility] [address] [place] [id number] [facility] Sodium [Moles/Vol] 139 mmol/L Normal 136-145 [facility] Comment on above: Order Comment: stat for CT Bun/creat patient has a duplicate for CMP and cbc for Irma Blackburns please send copy of report to her also. orders scanned in under Acct. [id number] Patient fasting since 0830 pm 0n 12/12/23 Performed By: #### C MP, LDH #### [facility] [address] [place] [address] [place] Urea nitrogen [Mass/Vol] 27 mg/dL High 7-25 [facility] Comment on above: Order Comment: stat for CT Bun/creat patient has a duplicate for CMP and cbc for Irma Mesa please send copy of report to her also. orders scanned in under Acct. [id number] Patient fasting since 0830 pm 0n 12/12/23 Performed By: #### C MP, LDH #### [facility] [address] Creatinine [Mass/volume] in Serum or PlasmaOrdered By: Farhana Sotomayor on 12-13-2023 Creatinine [Mass/Vol] 1.05 mg/dL 0.60-1.20 [facility] Eosinophils Auto (Bld) [#/Vo l]Ordered By: Farhana Sotomayor on 12-13-2023 Eosinophils (Bld) [#/Vol] 0.2 10*3/uL 0.0-0.45 [facility] Eosinophils/100 WBC Auto (Bl d)Ordered By: Farhana Sotomayor on 12-13-2023 Eosinophils/100 WBC (Bld) 2.4 % . [facility] Erythrocyte distribution wid th Auto (RBC) [Ratio]Ordered By: Farhana Sotomayor on 12-13-2023 Erythrocyte distribution width (RBC) [Ratio] 16.0 % 11.9-15.3 [facility] Globulin Calc (S) [Mass/Vol] Ordered By: Farhana Sotomayor on 12-13-2023 Globulin (S) [Mass/Vol] 2.7 g/dL [facility] Glucose [Mass/volume] in Ser um or PlasmaOrdered By: Farhana Sotomayor on 12-13-2023 Glucose [Mass/Vol] 135 mg/dL 70-100 [facility] Comment on above: ADA recommended refe rence rangeRandom Glucose Reference Range is dependent on time and content of last meal. Glucose of more than 200 mg/dL in a nonstressed, ambulatory subject supports the diagnosis of Diabetes Mellitus. Hematocrit Auto (Bld) [Volum e fraction]Ordered By: Farhana Sotomayor on 12-13-2023 Hematocrit (Bld) [Volume fraction] 35.5 % 34.0-46.4 [facility] Hemoglobin [Mass/volume] in BloodOrdered By: Farhana Sotomayor on 12-13-2023 Hemoglobin (Bld) [Mass/Vol] 11.5 g/dL 11.8-15.4 [facility] LDH Lactate Dehydrogenaseon 12-13-2023 LDH Lactate Dehydrogenase 118 U/L Low 140-271 [facility] Comment on above: Order Comment: stat for CT Bun/creat patient has a duplicate for CMP and cbc for Irma Mesa please send copy of report to her also. orders scanned in under Acct. [id number] Patient fasting since 0830 pm 0n 12/12/23 Result Comment: PERF ORMED BY: [facility] [address] [place] [id number] PATHOLOGIST FILLING TECHNICIAN SHEBA RICO M.D. Performed By: #### C MP, LDH ####[facility] [address] [place] [address] [facility] Lactate dehydrogenase [Enzym atic activity/volume] in Serum or Plasma by Lactate to pyOrdered By: Farhana Sotomayor on 12-13-2023 LDH Lactate to pyruvate reaction [Catalytic activity/Vol] 118 U/L 140-271 [facility] Leukocytes [#/volume] correc jin for nucleated erythrocytes in Blood by Automated counOrdered By: Farhana Sotomayor on 12-13-2023 WBC corrected for nucl RBC Auto (Bld) [#/Vol] 7.6 10*3/uL 3.8-11.6 [facility] Lymphocytes Auto (Bld) [#/Vo l]Ordered By: Farhana Sotomayor on 12-13-2023 Lymphocytes (Bld) [#/Vol] 1.9 10*3/uL 1.00-4.8 [facility] Lymphocytes/100 WBC Auto (Bl d)Ordered By: Farhana Sotomayor on 12-13-2023 Lymphocytes/100 WBC (Bld) 25.0 % . [facility] MCH Auto (RBC) [Entitic mass ]Ordered By: Farhana Sotomayor on 12-13-2023 MCH (RBC) [Entitic mass] 28.3 pg 24.7-34.3 [facility] MCHC Auto (RBC) [Mass/Vol]Or dered By: Farhana Sotomayor on 12-13-2023 MCHC (RBC) [Mass/Vol] 32.5 g/dL 32.0-35.0 [facility] MCV Auto (RBC) [Entitic vol] Ordered By: Farhana Sotomayor on 12-13-2023 MCV (RBC) [Entitic vol] 87.2 fL 80-100 [facility] Magnesiumon 12-13-2023 Magnesium [Mass/Vol] 1.5 mg/dL Low 1.9-2.7 [facility] Comment on above: Order Comment: Kaylee ya order for this patient for CBC and CMP ordered under [facility] Acct. please forward a copy of report to Irma Mesa N.P. patient fasting 12 hrs Result Comment: PERF ORMED BY: [place] [address] PATHOLOGIST FILLING TECHNICIAN SHEBA RICO M.D. Performed By: #### M G, BNP #### [address] Magnesium [Mass/volume] in S marlena or PlasmaOrdered By: Irma Mesa on 12-13-2023 Magnesium [Mass/Vol] 1.5 mg/dL 1.9-2.7 [facility] Monocytes Auto (Bld) [#/Vol] Ordered By: Farhana Sotomayor on 12-13-2023 Monocytes (Bld) [#/Vol] 0.6 10*3/uL 0.0-0.8 [facility] Monocytes/100 WBC Auto (Bld) Ordered By: Farhana Sotomayor on 12-13-2023 Monocytes/100 WBC (Bld) 8.3 % . [facility] Natriuretic peptide B [Mass/ Vol]Ordered By: Irma Mesa on 12-13-2023 Natriuretic peptide B (Bld) [Mass/Vol] 70.0 pg/mL 5-100 [facility] Neutrophils Auto (Bld) [#/Vo l]Ordered By: Farhana Sotomayor on 12-13-2023 Neutrophils (Bld) [#/Vol] 4.8 10*3/uL 1.8-7.7 [facility] Neutrophils/100 WBC Auto (Bl d)Ordered By: Farhana Sotomayor on 12-13-2023 Neutrophils/100 WBC (Bld) 63.1 % . [facility] No Panel InformationOrdered By: Farhana Sotomayor on 12-13-2023 Estimated GFR (CKD-EPI) 55.755 mL/Min [facility] Creatinine Clearance (Chem 51.93 [facility] Nucleated erythrocytes [Pres ence] in Blood by Automated countOrdered By: Farhana Sotomayor on 12-13-2023 Nucleated RBC Auto Ql (Bld) 0.0 /100{WBC} 0-0.5 [facility] Platelet mean volume Auto (B ld) [Entitic vol]Ordered By: Farhana Sotomayor on 12-13-2023 Platelet mean volume (Bld) [Entitic vol] 7.5 fL 6.3-10.7 [facility] Platelets Auto (Bld) [#/Vol] Ordered By: Farhana Sotomayor on 12-13-2023 Platelets (Bld) [#/Vol] 220 10*3/uL 150-450 [facility] Potassium [Moles/volume] in Serum or PlasmaOrdered By: Farhana Sotomayor on 12-13-2023 Potassium [Moles/Vol] 5.3 mmol/L 3.5-5.1 [facility] Protein [Mass/volume] in Ser um or PlasmaOrdered By: Farhana Sotomayor on 12-13-2023 Protein [Mass/Vol] 6.7 g/dL 6.4-8.9 [facility] [place] RBC Auto (Bld) [#/Vol]Ordere d By: Farhana Sotomayor on 12-13-2023 RBC (Bld) [#/Vol] 4.07 10*6/uL 3.60-5.00 [facility] Serum or plasma albumin/glob ulin mass ratioOrdered By: Farhana Sotomayor on 12-13-2023 Albumin/Globulin [Mass ratio] 1.5 {ratio} [facility] Serum or plasma anion gap de terminationOrdered By: Farhana Sotomayor on 12-13-2023 Anion gap [Moles/Vol] 14.4 mmol/L 6.0-15.0 [facility] Sodium [Moles/volume] in Ser um or PlasmaOrdered By: Farhana Sotomayor on 12-13-2023 Sodium [Moles/Vol] 139 mmol/L 136-145 [facility] US extremity nonvascularon 0 12-13-2023 US extremity nonvascular [place] [address] Ultrasound Report Signed Patient: Tosha Mcneal MR#: [id number] : 1950 Acct:[id number] Age/Sex: 73 / F ADM Date: 12/13/23 Loc: Room: Type: [facility] Attending Dr: Rose Ohara MD Ordering [...] Francesco Boggs M.D.12/13/2023 2:06 PM Dictation Location: [place] [address] Tech: Miri Zeina Transcribed By: SRUTHI 12/13/23 1406 Dictated By: Francesco Boggs II, MD 12/13/23 1402 Signed By: 12/13/23 1406 [facility] Urea nitrogen [Mass/volume] in Serum or PlasmaOrdered By: Farhana Sotomayor on 12-13-2023 Urea nitrogen [Mass/Vol] 27 mg/dL 7-25 [facility] WBC Auto (Bld) [#/Vol]Ordere d By: Farhana Sotomayor on 12-13-2023 WBC (Bld) [#/Vol] 7.6 10*3/uL 3.8-11.6 [facility] 37on 12-02-2023 37 Stop Amlodipine/Norv asc- this [...] pillows than normal or in recliner. Normal [facility] Office Visiton 12-02-2023 Follow-up visit [id number] Renee Mcneal 1950 F Date Provider Department Center 12/02/2023 Marlen-IRMA MESA Family History Problem Relation Age of Onset Coronary artery disease Father Heart attack Father Family Status - Relation Status Age at Father Level of Service:71709 [place] OFFICE/OUTPATIENT ESTABLISHED MOD MDM 30 MIN Normal [facility] Operative Reporton Operative Report Indication for Surge ry Wound dehiscence left total knee Preoperative Diagnosis Wound dehiscence left total knee Postoperative Diagnosis Wound dehiscence left total knee Operation Debridement Lower Extremity, INCISION AND DRAINAGE LEFT KNEE, SECONDARY CLOSURE OF WOUND DEHISENCE, PREVENNA PLACMENT, Left, Knee Surgeon(s) Ronaldo JUAREZ, Aly Guzman (Surgeon - Primary) Supervisor Cured Meats Miguel HART, Dee Dee Hays (Manager Database Administration) Anesthesia General Mile JUAREZ, Hank Richard (Electrical Appliance Preparer) Emmanuelle SHIPMAN, Joleen Maldonado (Provider) Estimated Blood [...] stable condition. Will be discharged home with [place] and Keflex 500 mg p.o. 3 times daily x 7 days. Return the office in 1 week for wound check. Tourniquet Time NA Sponge/Needle Count correct Fluid Count as per chart Catheters, Drains, Tubes Prevena Electronically signed by Aly Higgins MD 11/09/23 17:29 EST Normal [facility] POC Glucose Randomon 024 Glucose [Mass/Vol] 118 mg/dL High 70-99 [facility] Comment on above: Performed By: #### C [id number] #### [place] [address] Glucose [Mass/Vol] 137 mg/dL High 70-99 [facility] Comment on above: Performed By: #### C [id number] #### [facility] [address] [place] [address] Glucose [Mass/Vol] 138 mg/dL High 70-99 [facility] Comment on above: Performed By: #### C [id number] #### [facility] [address] [place] [address] Hgb/Hcton 10-04-2023 Hematocrit (Bld) [Volume fraction] 35.2 % Low 36.3-47.1 [facility] Comment on above: Performed By: #### H H #### [facility] [address] [place] [address] [address]. [place], [place] [id number] Ethanol Operator: Alexey Rob MD Hemoglobin (Bld) [Mass/Vol] 11.5 g/dL Low 11.9-15.1 [facility] Comment on above: Performed By: #### H H #### [address] [place] [address] Ethanol Operator: Alexey Rob MD OPERATIVE REPORTon 3 OPERATIVE REPORT [address] [id number] OPERATIVE REPORT PATIENT NAME: TOSHA MCNEAL : 1950 [facility] REC NO: [id number] ROOM: 0331 ACCOUNT NO: [id number] ADMIT DATE: 10/03/2023 PROVIDER: Aly Higgins DATE [...] to go with a 32-mm patellar dome. [place] holes were placed. Knee was then cleansed [...] layer was then closed with #1 Vicryl [id number] sutures over two Hemovac drains. Vancomycin powder [...] a stable condition. ALY HIGGINS PH/[id number]_T Doc#: [id number] CC: Normal [facility] MRSA, DNA, Nasalon 3 MRSA, DNA, Nasal Negative Normal NEG [facility] Comment on above: Result Comment: NEGA TIVE: MRSA DNA not detected by nucleic acid amplification. Results should be used as an adjunct to nosocomial control efforts to identify patients needing enhanced precautions. The test is not intended to identify patients with staphylococcal infections. Results should not be used to guide or monitor treatment for MRSA infections. Performed By: #### M RSANO #### [facility] [address] [place] [address] Ethanol Operator: Jose Miguel Davis MD [facility] [address] [place] [address] [place] [address] Ethanol Operator: Alexey Rob MD Basic Metabolic Profon 09-08 Anion gap [Moles/Vol] 12 mmol/L Normal 9-17 [facility] Comment on above: Performed By: #### B SHANTE, CDP #### [facility] [address] [place] [address] [place] [address] Ethanol Operator: Alexey Rob MD BUN/CRE Ratio 35 High 9-20 [facility] Comment on above: Performed By: #### B SHANTE, CDP #### [facility] [address] [place] [address] [place] [address] Ethanol Operator: Alexey Rob MD Calcium [Mass/Vol] 9.9 mg/dL Normal 8.6-10.4 [facility] Comment on above: Performed By: #### B SHANTE, CDP #### [facility] [address] [place] [address] [place] [address] Ethanol Operator: Alexey Rob MD Chloride [Moles/Vol] 99 mmol/L Normal 98-107 [facility] Comment on above: Performed By: #### B SHANTE, CDP #### [facility] [address] [place] [address] Ethanol Operator: Alexey Rob MD CO2 [Moles/Vol] 27 mmol/L Normal 20-31 [facility] Comment on above: Performed By: #### B SHANTE, CDP #### [facility] [address] [place] [address] Ethanol Operator: Alexey Rob MD Creatinine [Mass/Vol] 1.0 mg/dL High 0.5-0.9 [facility] Comment on above: Performed By: #### B SHANTE, CDP #### [facility] [address] [place] [address] Ethanol Operator: Alexey Rob MD GFR/1.73 sq M.predicted among non-blacks MDRD (S/P/Bld) [Vol rate/Area] 59 mL/min/{1.73_m2} Low >60 [facility] Comment on above: Result Comment: These [...] Performed By: #### B SHANTE, CDP #### [facility] [address] [place] [address] Ethanol Operator: Alexey Rob MD Glucose [Mass/Vol] 126 mg/dL High 70-99 [facility] Comment on above: Performed By: #### B SHANTE, CDP #### [facility] [address] [place] [address] Ethanol Operator: Alexey Rob MD Potassium [Moles/Vol] 4.9 mmol/L Normal 3.7-5.3 [facility] Comment on above: Performed By: #### B MP, CDP #### [facility] [address] [place], [place] [phone] Ethanol Operator: Alexey Rob MD Sodium [Moles/Vol] 138 mmol/L Normal 135-144 [facility] Comment on above: Performed By: #### B MP, CDP #### [facility] [address] [place], [place] [phone] Ethanol Operator: Alexey Rob MD Urea nitrogen [Mass/Vol] 35 mg/dL High 8-23 [facility] Comment on above: Performed By: #### B SHANTE, CDP #### [address] [place], [place] [phone] Ethanol Operator: Alexey Rob MD CBC with Diffon 09-08-2023 Abs. Basophil 0.07 k/uL Normal 0.00-0.20 [facility] Comment on above: Performed By: #### B SHANTE, CDP #### [facility] [address] [place] [address] [address]. [place], [place] [phone] Ethanol Operator: Alexey Rob MD Abs.Imm.Granulocyte 0.04 k/uL Normal 0.00-0.30 [facility] Comment on above: Performed By: #### B SHANTE, CDP #### [address] [place], [place] [address]83 Ethanol Operator: Alexey Rob MD Abs.Neutrophil (Seg) 5.10 k/uL Normal 1.50-8.10 [facility] Comment on above: Performed By: #### B MP, CDP #### [facility] [address] [place] [address] Dr. [place], [place] [phone] Ethanol Operator: Alexey Rob MD Basophils/100 WBC (Bld) 1 % Normal 0-2 [facility] Comment on above: Performed By: #### B MP, CDP #### [facility] [address] [place] [address] [address]. [place], [place] 947[address]83 Ethanol Operator: Alexey Rob MD Eosinophils (Bld) [#/Vol] 0.13 10*3/uL Normal 0.00-0.44 [facility] Comment on above: Performed By: #### B MP, CDP #### [address] [place], [place] [phone] Ethanol Operator: Alexey Rob MD Eosinophils/100 WBC (Bld) 2 % Normal 1-4 [facility] Comment on above: Performed By: #### B MP, CDP #### [address] [place] [address] Ethanol Operator: Alexey Rob MD Erythrocyte distribution width (RBC) [Ratio] 13.6 % Normal 11.8-14.4 [facility] Comment on above: Performed By: #### B SHANTE, CDP #### [address] [place], [id number] Ethanol Operator: Alexey Rob MD Hematocrit (Bld) [Volume fraction] 44.2 % Normal 36.3-47.1 [facility] Comment on above: Performed By: #### B SHANTE, CDP #### [address] [place], [place] 1380683 Ethanol Operator: Alexey Rob MD Hemoglobin (Bld) [Mass/Vol] 14.1 g/dL Normal 11.9-15.1 [facility] Comment on above: Performed By: #### B MP, CDP #### [address] [place] [address] Ethanol Operator: Alexey Rob MD Immature granulocytes/100 WBC (Bld) 1 % High 0 [facility] Comment on above: Performed By: #### B MP, CDP #### [address] [place], [place] [phone] Ethanol Operator: Alexey Rob MD Lymphocytes (Bld) [#/Vol] 1.87 10*3/uL Normal 1.10-3.70 [facility] Comment on above: Performed By: #### B SHANTE, CDP #### [address] [place], [place] 3823183 Ethanol Operator: Alexey Rob MD Lymphocytes/100 WBC (Bld) 24 % Normal 24-43 [facility] Comment on above: Performed By: #### B SHANTE, CDP #### [address] [place], [place] 1936183 Ethanol Operator: Alexey Rob MD MCH (RBC) [Entitic mass] 29.5 pg Normal 25.2-33.5 [facility] Comment on above: Performed By: #### B SHANTE, CDP #### [address] [place], [place] [phone] Ethanol Operator: Alexey Rob MD MCHC (RBC) [Mass/Vol] 31.9 g/dL Normal 28.4-34.8 [facility] Comment on above: Performed By: #### B SHANTE, CDP #### [address] [place], [place] [phone] Ethanol Operator: Alexey Rob MD MCV (RBC) [Entitic vol] 92.5 fL Normal 82.6-102.9 [facility] Comment on above: Performed By: #### B SHANTE, CDP #### [address] [place], [place] [phone] Ethanol Operator: Alexey Rob MD Monocytes (Bld) [#/Vol] 0.75 10*3/uL Normal 0.10-1.20 [facility] Comment on above: Performed By: #### B SHANTE, CDP #### [address] [place], [place] 2472383 Ethanol Operator: Alexey Rob MD Monocytes/100 WBC (Bld) 9 % Normal 3-12 [facility] Comment on above: Performed By: #### B SHANTE, CDP #### [facility] [address] [place], [place] [phone] Ethanol Operator: Alxeey Rob MD Neutrophil (Seg) 63 % Normal 36-65 [facility] Comment on above: Performed By: #### B MP, CDP #### [facility] [address] [place] [address] Ethanol Operator: Alexey Rob MD NRBC Automated 0.0 per 100 WBC Normal 0.0 [facility] Comment on above: Performed By: #### B MP, CDP #### [address] [place], [place] [phone] Ethanol Operator: Alexey Rob MD Platelet mean volume (Bld) [Entitic vol] 9.6 fL Normal 8.1-13.5 [facility] Comment on above: Performed By: #### B MP, CDP #### [address] [place], [place] [phone] Ethanol Operator: Alexey Rob MD Platelets (Bld) [#/Vol] 205 10*3/uL Normal 138-453 [facility] Comment on above: Performed By: #### B MP, CDP #### [address] [place], [place] [address]83 Ethanol Operator: Alexey Rob MD RBC (Bld) [#/Vol] 4.78 10*6/uL Normal 3.95-5.11 [facility] Comment on above: Performed By: #### B MP, CDP #### [address] [place], [place] 3044483 Ethanol Operator: Alexey Rob MD WBC (Bld) [#/Vol] 8.0 10*3/uL Normal 3.5-11.3 [facility] Comment on above: Performed By: #### B MP, CDP #### [address] [place] [address] Ethanol Operator: Alexey Rob MD MRSA, DNA, Nasalon Specimen Description .NASAL SWAB Normal [facility] Comment on above: Performed By: #### M RSANO #### [facility] [address] [place] [address] Ethanol Operator: Jose Miguel Davis MD [facility] [address] [address] Ethanol Operator: Alexey Rob MD Type + Screenon 09-08-2023 Type + Screen Sample Expiration 10/06/2023,2359 Arm Band Number [id number] ABO/Rh(D) A POSITIVE Antibody Screen NEGATIVE Normal [facility] Comment on above: Performed By: #### T YS #### [facility] [address] [place] [address] Ethanol Operator: Alexey Rob MD Office Visiton 08-29-2023 Follow-up visit [id number] Renee Mcneal 1950 F Date Provider Department Center 08/29/2023 [id number] MANUEL [facility] Family History Problem Relation Age of Onset Coronary artery disease Father Heart attack Father Family Status - Relation Status Age at Father Level of Service:66651 [place] OFFICE/OUTPATIENT ESTABLISHED MOD MDM 30-39 MIN Normal [facility] Alanine aminotransferase [En zymatic activity/volume] in Serum or PlasmaOrdered By: Rose Ohara on 08-09-2023 ALT [Catalytic activity/Vol] 13 U/L 7-52 [facility] Albumin [Mass/volume] in Ser um or Plasma by Bromocresol green (BCG) dye binding methoOrdered By: Rose Ohara on 08-09-2023 Albumin BCG dye [Mass/Vol] 4.5 g/dL 3.5-5.7 [facility] Alkaline phosphatase [Enzyma tic activity/volume] in Serum or PlasmaOrdered By: Rose Ohara on 08-09-2023 ALP [Catalytic activity/Vol] 48 U/L 34-104 [facility] Aspartate aminotransferase [ Enzymatic activity/volume] in Serum or PlasmaOrdered By: Rose Ohara on 08-09-2023 AST [Catalytic activity/Vol] 11 U/L 13-39 [facility] Basophils Auto (Bld) [#/Vol] Ordered By: Rose Ohara on 08-09-2023 Basophils (Bld) [#/Vol] 0.1 10*3/uL 0.0-0.2 [facility] Basophils/100 WBC Auto (Bld) Ordered By: Rose Ohara on 08-09-2023 Basophils/100 WBC (Bld) 1.3 % . [facility] Bilirubin.total [Mass/volume ] in Serum or PlasmaOrdered By: Rose Ohara on 08-09-2023 Bilirubin [Mass/Vol] 1.1 mg/dL 0.3-1.0 [facility] Calcium [Mass/volume] in Ser um or PlasmaOrdered By: Rose Ohara on 08-09-2023 Calcium [Mass/Vol] 9.8 mg/dL 8.6-10.3 [facility] Carbon dioxide, total [Moles /volume] in Serum or PlasmaOrdered By: Rose Ohara on 08-09-2023 CO2 [Moles/Vol] 27.9 mmol/L 21.0-31.0 [facility] Chloride [Moles/volume] in S marlena or PlasmaOrdered By: Rose Ohara on 08-09-2023 Chloride [Moles/Vol] 104 mmol/L 98-107 [facility] Complete Blood Count Auto Di ffon 08-09-2023 Basophils (Bld) [#/Vol] 0.1 10*3/uL Normal 0.0-0.2 [facility] Comment on above: Result Comment: PERF ORMED BY: [facility] [address] [place] [address] PATHOLOGIST FILLING TECHNICIAN SHEBA RICO M.D. Performed By: #### C BC, CMP, LDH ####[facility] [address] [place] [address] [facility] Basophils/100 WBC (Bld) 1.3 % Normal . [facility] Comment on above: Performed By: #### C BC, CMP, LDH ####[place] [id number] [facility] Eosinophils (Bld) [#/Vol] 0.1 10*3/uL Normal 0.0-0.45 [facility] Comment on above: Performed By: #### C BC, CMP, LDH ####[place] [id number] [facility] Eosinophils/100 WBC (Bld) 1.9 % Normal . [facility] Comment on above: Performed By: #### C BC, CMP, LDH ####[place] [phone] [facility] Erythrocyte distribution width (RBC) [Ratio] 14.5 % Normal 11.9-15.3 [facility] Comment on above: Performed By: #### C BC, CMP, LDH ####[place] [phone] [facility] Hematocrit (Bld) [Volume fraction] 41.7 % Normal 34.0-46.4 [facility] Comment on above: Performed By: #### C BC, CMP, LDH ####[place] [id number] [facility] Hemoglobin (Bld) [Mass/Vol] 13.6 g/dL Normal 11.8-15.4 [facility] Comment on above: Performed By: #### C BC, CMP, LDH ####[place] [id number] [facility] Lymphocytes (Bld) [#/Vol] 1.6 10*3/uL Normal 1.00-4.8 [facility] Comment on above: Performed By: #### C BC, CMP, LDH ####[place] [id number] [facility] Lymphocytes/100 WBC (Bld) 23.9 % Normal . [facility] Comment on above: Performed By: #### C BC, CMP, LDH ####[place] [id number] [facility] MCH (RBC) [Entitic mass] 29.6 pg Normal 24.7-34.3 [facility] Comment on above: Performed By: #### C BC, CMP, LDH ####[place] [id number] [facility] MCV (RBC) [Entitic vol] 90.7 fL Normal 80-100 [facility] Comment on above: Performed By: #### C BC, CMP, LDH ####[place] [id number] [facility] Mean Corpuscular HGB Conc 32.6 g/dL Normal 32.0-35.0 [facility] Comment on above: Performed By: #### C BC, CMP, LDH ####[place] [id number] [facility] Monocytes (Bld) [#/Vol] 0.6 10*3/uL Normal 0.0-0.8 [facility] Comment on above: Performed By: #### C BC, CMP, LDH ####[place] [id number] [facility] Monocytes/100 WBC (Bld) 9.2 % Normal . [facility] Comment on above: Performed By: #### C BC, CMP, LDH ####[place] [id number] [facility] Neutrophils (Bld) [#/Vol] 4.1 10*3/uL Normal 1.8-7.7 [facility] Comment on above: Performed By: #### C BC, CMP, LDH ####[place] [id number] [facility] Neutrophils/100 WBC (Bld) 63.7 % Normal . [facility] Comment on above: Performed By: #### C BC, CMP, LDH ####[place] [id number] [facility] NRBC% 0.1 /100{WBC} Normal 0-0.5 [facility] Comment on above: Performed By: #### C BC, CMP, LDH ####[place] [phone] [facility] Platelet mean volume (Bld) [Entitic vol] 7.8 fL Normal 6.3-10.7 [facility] Comment on above: Performed By: #### C BC, CMP, LDH ####[place] [phone] [facility] Platelets (Bld) [#/Vol] 200 10*3/uL Normal 150-450 [facility] Comment on above: Performed By: #### C BC, CMP, LDH ####[place] [id number] [facility] RBC (Bld) [#/Vol] 4.59 10*6/uL Normal 3.60-5.00 [facility] Comment on above: Performed By: #### C BC, CMP, LDH ####[place] [id number] [facility] WBC (Bld) [#/Vol] 6.5 10*3/uL Normal 3.8-11.6 [facility] Comment on above: Performed By: #### C BC, CMP, LDH ####[place] [id number] [facility] Comprehensive Metabolic Pane [place] 08-09-2023 Albumin [Mass/Vol] 4.5 g/dL Normal 3.5-5.7 [facility] Comment on above: Order Comment: pt is a fasting Performed By: #### C BC, CMP, LDH ####[place] [id number] [facility] Albumin/Globulin [Mass ratio] 1.8 {ratio} Normal [facility] Comment on above: Order Comment: pt is a fasting Performed By: #### C BC, CMP, LDH ####[place] [id number] [facility] ALP [Catalytic activity/Vol] 48 U/L Normal 34-104 [facility] Comment on above: Order Comment: pt is a fasting Performed By: #### C BC, CMP, LDH ####[place] [id number] [facility] ALT [Catalytic activity/Vol] 13 U/L Normal 7-52 [facility] Comment on above: Order Comment: pt is a fasting Performed By: #### C BC, CMP, LDH ####[place] [address] [place] [address] [facility] Anion gap [Moles/Vol] 13.2 mmol/L Normal 6.0-15.0 [facility] Comment on above: Order Comment: pt is a fasting Performed By: #### C BC, CMP, LDH ####[address] [address] [facility] AST [Catalytic activity/Vol] 11 U/L Low 13-39 [facility] Comment on above: Order Comment: pt is a fasting Performed By: #### C BC, CMP, LDH ####[address] [address] [facility] Bilirubin [Mass/Vol] 1.1 mg/dL High 0.3-1.0 [facility] Comment on above: Order Comment: pt is a fasting Performed By: #### C BC, CMP, LDH ####[address] [address] [facility] Calcium [Mass/Vol] 9.8 mg/dL Normal 8.6-10.3 [facility] Comment on above: Order Comment: pt is a fasting Performed By: #### C BC, CMP, LDH ####[address] [address] [facility] Chloride [Moles/Vol] 104 mmol/L Normal 98-107 [facility] Comment on above: Order Comment: pt is a fasting Performed By: #### C BC, CMP, LDH ####[address] [address] [facility] CO2 [Moles/Vol] 27.9 mmol/L Normal 21.0-31.0 [facility] Comment on above: Order Comment: pt is a fasting Performed By: #### C BC, CMP, LDH ####[address] [address] [facility] Creatinine [Mass/Vol] 0.86 mg/dL Normal 0.60-1.20 [facility] Comment on above: Order Comment: pt is a fasting Performed By: #### C BC, CMP, LDH ####[place] [address] [place] [address] [facility] Creatinine Clr Calc Pharmacy 64.19 [facility] Comment on above: Order Comment: pt is a fasting Performed By: #### C BC, CMP, LDH ####[address] [address] [facility] GFR/1.73 sq M.predicted MDRD (S/P/Bld) [Vol rate/Area] mL/min/{1.73_m2} [facility] Comment on above: Order Comment: pt is a fasting Performed By: #### C BC, CMP, LDH ####[place] [address] [place] [id number] [facility] Globulin (S) [Mass/Vol] 2.5 g/dL [facility] Comment on above: Order Comment: pt is a fasting Performed By: #### C BC, CMP, LDH ####[place] [id number] [facility] Glucose [Mass/Vol] 168 mg/dL High 70-100 [facility] Comment on above: Order Comment: pt is a fasting Result Comment: [facility] Glucose Reference Range is dependent on time and content of last meal. Glucose of more than 200 mg/dL in a nonstressed, ambulatory subject supports the diagnosis of Diabetes Mellitus. ADA recommended reference range Performed By: #### C BC, CMP, LDH ####[place] [id number] [facility] Potassium [Moles/Vol] 5.1 mmol/L Normal 3.5-5.1 [facility] Comment on above: Order Comment: pt is a fasting Performed By: #### C BC, CMP, LDH ####[place] [id number] [facility] Protein [Mass/Vol] 7.0 g/dL Normal 6.4-8.9 [facility] Comment on above: Order Comment: pt is a fasting Performed By: #### C BC, CMP, LDH ####[place] [id number] [facility] Sodium [Moles/Vol] 140 mmol/L Normal 136-145 [facility] Comment on above: Order Comment: pt is a fasting Performed By: #### C BC, CMP, LDH ####[facility] [address] [place] [id number] [facility] Urea nitrogen [Mass/Vol] 26 mg/dL High 7-25 [facility] Comment on above: Order Comment: pt is a fasting Performed By: #### C BC, CMP, LDH ####[facility] [id number] Creatinine [Mass/volume] in Serum or PlasmaOrdered By: Rose Ohara on 08-09-2023 Creatinine [Mass/Vol] 0.86 mg/dL 0.60-1.20 [facility] Eosinophils Auto (Bld) [#/Vo l]Ordered By: Rose Ohara on 08-09-2023 Eosinophils (Bld) [#/Vol] 0.1 10*3/uL 0.0-0.45 [facility] Eosinophils/100 WBC Auto (Bl d)Ordered By: Rose Ohara on 08-09-2023 Eosinophils/100 WBC (Bld) 1.9 % . [facility] Erythrocyte distribution wid th Auto (RBC) [Ratio]Ordered By: Rose Ohara on 08-09-2023 Erythrocyte distribution width (RBC) [Ratio] 14.5 % 11.9-15.3 [facility] Globulin Calc (S) [Mass/Vol] Ordered By: Rose Ohara on 08-09-2023 Globulin (S) [Mass/Vol] 2.5 g/dL [facility] Glucose [Mass/volume] in Ser um or PlasmaOrdered By: Rose Ohara on 08-09-2023 Glucose [Mass/Vol] 168 mg/dL 70-100 [facility] Comment on above: ADA recommended refe rence rangeRandom Glucose Reference Range is dependent on time and content of last meal. Glucose of more than 200 mg/dL in a nonstressed, ambulatory subject supports the diagnosis of Diabetes Mellitus. Hematocrit Auto (Bld) [Volum e fraction]Ordered By: Rose Ohara on 08-09-2023 Hematocrit (Bld) [Volume fraction] 41.7 % 34.0-46.4 [facility] Hemoglobin [Mass/volume] in BloodOrdered By: Rose Ohara on 08-09-2023 Hemoglobin (Bld) [Mass/Vol] 13.6 g/dL 11.8-15.4 [facility] LDH Lactate Dehydrogenaseon 08-09-2023 LDH Lactate Dehydrogenase 135 U/L Low 140-271 [facility] Comment on above: Order Comment: pt is a fasting Result Comment: PERF ORMED BY: [facility] [address] [address] PATHOLOGIST FILLING TECHNICIAN SHEBA RICO M.D. Performed By: #### C BC, CMP, LDH ####[facility] [place] [address] [facility] Lactate dehydrogenase [Enzym atic activity/volume] in Serum or Plasma by Lactate to pyOrdered By: Rose Ohara on 08-09-2023 LDH Lactate to pyruvate reaction [Catalytic activity/Vol] 135 U/L 140-271 [facility] Leukocytes [#/volume] correc jin for nucleated erythrocytes in Blood by Automated counOrdered By: Rose Ohara on 08-09-2023 WBC corrected for nucl RBC Auto (Bld) [#/Vol] 6.5 10*3/uL 3.8-11.6 [facility] Lymphocytes Auto (Bld) [#/Vo l]Ordered By: Rose Ohara on 08-09-2023 Lymphocytes (Bld) [#/Vol] 1.6 10*3/uL 1.00-4.8 [facility] Lymphocytes/100 WBC Auto (Bl d)Ordered By: Rose Ohara on 08-09-2023 Lymphocytes/100 WBC (Bld) 23.9 % . [facility] MCH Auto (RBC) [Entitic mass ]Ordered By: Rose Ohara on 08-09-2023 MCH (RBC) [Entitic mass] 29.6 pg 24.7-34.3 [facility] MCHC Auto (RBC) [Mass/Vol]Or dered By: Rose Ohara on 08-09-2023 MCHC (RBC) [Mass/Vol] 32.6 g/dL 32.0-35.0 [facility] MCV Auto (RBC) [Entitic vol] Ordered By: Rose Ohara on 08-09-2023 MCV (RBC) [Entitic vol] 90.7 fL 80-100 [facility] Monocytes Auto (Bld) [#/Vol] Ordered By: Rose Ohara on 08-09-2023 Monocytes (Bld) [#/Vol] 0.6 10*3/uL 0.0-0.8 [facility] Monocytes/100 WBC Auto (Bld) Ordered By: Rose Ohara on 08-09-2023 Monocytes/100 WBC (Bld) 9.2 % . [facility] Neutrophils Auto (Bld) [#/Vo l]Ordered By: Rose Ohara on 08-09-2023 Neutrophils (Bld) [#/Vol] 4.1 10*3/uL 1.8-7.7 [facility] Neutrophils/100 WBC Auto (Bl d)Ordered By: Rose Ohara on 08-09-2023 Neutrophils/100 WBC (Bld) 63.7 % . [facility] No Panel InformationOrdered By: Rose Ohara on 08-09-2023 Estimated GFR (CKD-EPI) > 60.0 mL/Min [facility] Creatinine Clearance (Chem 64.19 [facility] Nucleated erythrocytes [Pres ence] in Blood by Automated countOrdered By: Rose Ohara on 08-09-2023 Nucleated RBC Auto Ql (Bld) 0.1 /100{WBC} 0-0.5 [facility] Platelet mean volume Auto (B ld) [Entitic vol]Ordered By: Rose Ohara on 08-09-2023 Platelet mean volume (Bld) [Entitic vol] 7.8 fL 6.3-10.7 [facility] Platelets Auto (Bld) [#/Vol] Ordered By: Rose Ohara on 08-09-2023 Platelets (Bld) [#/Vol] 200 10*3/uL 150-450 [facility] Potassium [Moles/volume] in Serum or PlasmaOrdered By: Rose Ohara on 08-09-2023 Potassium [Moles/Vol] 5.1 mmol/L 3.5-5.1 [facility] Protein [Mass/volume] in Ser um or PlasmaOrdered By: Rose Ohara on 08-09-2023 Protein [Mass/Vol] 7.0 g/dL 6.4-8.9 [facility] RBC Auto (Bld) [#/Vol]Ordere d By: Rose Ohara on 08-09-2023 RBC (Bld) [#/Vol] 4.59 10*6/uL 3.60-5.00 [facility] Serum or plasma albumin/glob ulin mass ratioOrdered By: Rose Ohara on 08-09-2023 Albumin/Globulin [Mass ratio] 1.8 {ratio} [facility] Serum or plasma anion gap de terminationOrdered By: Rose Ohara on 08-09-2023 Anion gap [Moles/Vol] 13.2 mmol/L 6.0-15.0 [facility] Sodium [Moles/volume] in Ser um or PlasmaOrdered By: Rose Ohara on 08-09-2023 Sodium [Moles/Vol] 140 mmol/L 136-145 [facility] US extremity nonvascularon 1 US extremity nonvascular [place] [address] Ultrasound Report Signed Patient: Tosha Mcneal MR#: [id number] : 1950 Acct:[id number] Age/Sex: 72 / F ADM Date: 08/09/23 Loc: Room: Type: [facility] Attending Dr: Rose Ohara MD Ordering [...] Jenni Sands M.D.08/09/2023 1:36 PM Dictation Location: [place] [address] Tech: Miri Pastrana Transcribed By: SRUTHI 08/09/231335 Dictated By: Jenni Sands MD 08/09/231332 Signed By: 08/09/231335 Normal [facility] Urea nitrogen [Mass/volume] in Serum or PlasmaOrdered By: Rose Ohara on 08-09-2023 Urea nitrogen [Mass/Vol] 26 mg/dL 7-25 [facility] WBC Auto (Bld) [#/Vol]Ordere d By: Rose Ohara on 08-09-2023 WBC (Bld) [#/Vol] 6.5 10*3/uL 3.8-11.6 [facility] Office Visiton 05-17-2023 Follow-up visit [id number] Renee Mcneal 1950 F Date Provider Department Center 05/17/2023 [id number] MANUEL CARD [facility] Family History Problem Relation Age of Onset Coronary artery disease Father Heart attack Father Family Status - Relation Status Age at Father Level of Service:28954 [place] OFFICE/OUTPATIENT ESTABLISHED MOD MDM 30-39 MIN Normal [facility] Alanine aminotransferase [En zymatic activity/volume] in Serum or PlasmaOrdered By: Rose Ohara on 04-12-2023 ALT [Catalytic activity/Vol] 17 U/L 7-52 [facility] Albumin [Mass/volume] in Ser um or Plasma by Bromocresol green (BCG) dye binding methoOrdered By: Rose Ohara on 04-12-2023 Albumin BCG dye [Mass/Vol] 4.1 g/dL 3.5-5.7 [facility] Alkaline phosphatase [Enzyma tic activity/volume] in Serum or PlasmaOrdered By: Rose Ohara on 04-12-2023 ALP [Catalytic activity/Vol] 57 U/L 34-104 [facility] Aspartate aminotransferase [ Enzymatic activity/volume] in Serum or PlasmaOrdered By: Rose Ohara on 06-06-2023 AST [Catalytic activity/Vol] 16 U/L 13-39 [facility] Basophils Auto (Bld) [#/Vol] Ordered By: Rose Ohara on 04-12-2023 Basophils (Bld) [#/Vol] 0.1 10*3/uL 0.0-0.2 [facility] Basophils/100 WBC Auto (Bld) Ordered By: Rose Ohara on 04-12-2023 Basophils/100 WBC (Bld) 0.9 % . [facility] Bilirubin.total [Mass/volume ] in Serum or PlasmaOrdered By: Rose Ohara on 04-12-2023 Bilirubin [Mass/Vol] 0.9 mg/dL 0.3-1.0 [facility] Calcium [Mass/volume] in Ser um or PlasmaOrdered By: Rose Ohara on 04-12-2023 Calcium [Mass/Vol] 9.1 mg/dL 8.6-10.3 [facility] Carbon dioxide, total [Moles /volume] in Serum or PlasmaOrdered By: Rose Ohara on 04-12-2023 CO2 [Moles/Vol] 27.2 mmol/L 21.0-31.0 [facility] Chloride [Moles/volume] in S marlena or PlasmaOrdered By: Rose Ohara on 04-12-2023 Chloride [Moles/Vol] 102 mmol/L 98-107 [facility] Complete Blood Count Auto Di ffon 04-12-2023 Basophils (Bld) [#/Vol] 0.1 10*3/uL Normal 0.0-0.2 [facility] Comment on above: Result Comment: PERF ORMED BY: [place] [address] PATHOLOGIST FILLING TECHNICIAN SHEBA RICO M.D. Performed By: #### C BC, LDH, CMP #### [facility] [address] [place] [address] [place] Basophils/100 WBC (Bld) 0.9 % Normal . [facility] Comment on above: Performed By: #### C BC, LDH, CMP #### [facility] [address] [place] [address] [place] Eosinophils (Bld) [#/Vol] 0.2 10*3/uL Normal 0.0-0.45 [facility] Comment on above: Performed By: #### C BC, LDH, CMP #### [address] Eosinophils/100 WBC (Bld) 2.2 % Normal . [facility] Comment on above: Performed By: #### C BC, LDH, CMP #### [address] Erythrocyte distribution width (RBC) [Ratio] 14.7 % Normal 11.9-15.3 [facility] Comment on above: Performed By: #### C BC, LDH, CMP #### [address] Hematocrit (Bld) [Volume fraction] 41.4 % Normal 34.0-46.4 [facility] Comment on above: Performed By: #### C BC, LDH, CMP #### [address] Hemoglobin (Bld) [Mass/Vol] 13.5 g/dL Normal 11.8-15.4 [facility] Comment on above: Performed By: #### C BC, LDH, CMP #### [address] Lymphocytes (Bld) [#/Vol] 1.8 10*3/uL Normal 1.00-4.8 [facility] Comment on above: Performed By: #### C BC, LDH, CMP #### [address] Lymphocytes/100 WBC (Bld) 26.0 % Normal . [facility] Comment on above: Performed By: #### C BC, LDH, CMP #### [address] MCH (RBC) [Entitic mass] 29.3 pg Normal 24.7-34.3 [facility] Comment on above: Performed By: #### C BC, LDH, CMP #### [address] MCV (RBC) [Entitic vol] 89.4 fL Normal 80-100 [facility] Comment on above: Performed By: #### C BC, LDH, CMP #### [address] Mean Corpuscular HGB Conc 32.7 g/dL Normal 32.0-35.0 [facility] Comment on above: Performed By: #### C BC, LDH, CMP #### [address] Monocytes (Bld) [#/Vol] 0.6 10*3/uL Normal 0.0-0.8 [facility] Comment on above: Performed By: #### C BC, LDH, CMP #### [address] Monocytes/100 WBC (Bld) 8.6 % Normal . [facility] Comment on above: Performed By: #### C BC, LDH, CMP #### [address] Neutrophils (Bld) [#/Vol] 4.3 10*3/uL Normal 1.8-7.7 [facility] Comment on above: Performed By: #### C BC, LDH, CMP #### [address] Neutrophils/100 WBC (Bld) 62.3 % Normal . [facility] Comment on above: Performed By: #### C BC, LDH, CMP #### [address] NRBC% 0.1 /100{WBC} Normal 0-0.5 [facility] Comment on above: Performed By: #### C BC, LDH, CMP #### [address] Platelet mean volume (Bld) [Entitic vol] 8.3 fL Normal 6.3-10.7 [facility] Comment on above: Performed By: #### C BC, LDH, CMP #### [address] [address] [place] Platelets (Bld) [#/Vol] 197 10*3/uL Normal 150-450 [facility] Comment on above: Performed By: #### C BC, LDH, CMP #### [address] RBC (Bld) [#/Vol] 4.62 10*6/uL Normal 3.60-5.00 [facility] Comment on above: Performed By: #### C BC, LDH, CMP #### [address] WBC (Bld) [#/Vol] 6.9 10*3/uL Normal 3.8-11.6 [facility] Comment on above: Performed By: #### C BC, LDH, CMP #### [address] Comprehensive Metabolic Pane [place] 04-12-2023 Albumin [Mass/Vol] 4.1 g/dL Normal 3.5-5.7 [facility] Comment on above: Performed By: #### C BC, LDH, CMP #### [address] Albumin/Globulin [Mass ratio] 1.6 {ratio} Normal [facility] Comment on above: Performed By: #### C BC, LDH, CMP #### [address] ALP [Catalytic activity/Vol] 57 U/L Normal 34-104 [facility] Comment on above: Performed By: #### C BC, LDH, CMP #### [facility] [address] [place] [address] ALT [Catalytic activity/Vol] 17 U/L Normal 7-52 [facility] Comment on above: Performed By: #### C BC, LDH, CMP #### [address] Anion gap [Moles/Vol] 15.6 mmol/L High 6.0-15.0 [facility] Comment on above: Performed By: #### C BC, LDH, CMP #### [facility] [address] [place] [address] [place] AST [Catalytic activity/Vol] 16 U/L Normal 13-39 [facility] Comment on above: Performed By: #### C BC, LDH, CMP #### [facility] [address] [place] [address] [place] Bilirubin [Mass/Vol] 0.9 mg/dL Normal 0.3-1.0 [facility] Comment on above: Performed By: #### C BC, LDH, CMP #### [facility] [address] Calcium [Mass/Vol] 9.1 mg/dL Normal 8.6-10.3 [facility] Comment on above: Performed By: #### C BC, LDH, CMP #### [facility] [address] Chloride [Moles/Vol] 102 mmol/L Normal 98-107 [facility] Comment on above: Performed By: #### C BC, LDH, CMP #### [facility] [address] [place] [address] [place] CO2 [Moles/Vol] 27.2 mmol/L Normal 21.0-31.0 [facility] Comment on above: Performed By: #### C BC, LDH, CMP #### [facility] [address] [place] [address] [place] Creatinine [Mass/Vol] 1.01 mg/dL Normal 0.60-1.20 [facility] Comment on above: Performed By: #### C BC, LDH, CMP #### [facility] [address] [place] [address] [place] Creatinine Clr Calc Pharmacy 54.77 [facility] Comment on above: Performed By: #### C BC, LDH, CMP #### [facility] [address] [place] [address] [place] GFR/1.73 sq M.predicted MDRD (S/P/Bld) [Vol rate/Area] 58.780 mL/min/{1.73_m2} [facility] Comment on above: Performed By: #### C BC, LDH, CMP #### [facility] [address] Globulin (S) [Mass/Vol] 2.6 g/dL Normal [facility] Comment on above: Performed By: #### C BC, LDH, CMP #### [facility] [address] Glucose [Mass/Vol] 203 mg/dL High 70-100 [facility] Comment on above: Result Comment: [facility] Glucose Reference Range is dependent on time and content of last meal. Glucose of more than 200 mg/dL in a nonstressed, ambulatory subject supports the diagnosis of Diabetes Mellitus. ADA recommended reference range Performed By: #### C BC, LDH, CMP #### [facility] [address] Potassium [Moles/Vol] 4.8 mmol/L Normal 3.5-5.1 [facility] Comment on above: Performed By: #### C BC, LDH, CMP #### [facility] [address] Protein [Mass/Vol] 6.7 g/dL Normal 6.4-8.9 [facility] Comment on above: Performed By: #### C BC, LDH, CMP #### [facility] [address] Sodium [Moles/Vol] 140 mmol/L Normal 136-145 [facility] Comment on above: Performed By: #### C BC, LDH, CMP #### [facility] [address] [place] [address] [place] Urea nitrogen [Mass/Vol] 34 mg/dL High 7-25 [facility] Comment on above: Performed By: #### C BC, LDH, CMP #### [place] [address] [place] Creatinine [Mass/volume] in Serum or PlasmaOrdered By: Rose Ohara on 04-12-2023 Creatinine [Mass/Vol] 1.01 mg/dL 0.60-1.20 [facility] Eosinophils Auto (Bld) [#/Vo l]Ordered By: Rose Ohara on 04-12-2023 Eosinophils (Bld) [#/Vol] 0.2 10*3/uL 0.0-0.45 [facility] Eosinophils/100 WBC Auto (Bl d)Ordered By: Rose Ohara on 04-12-2023 Eosinophils/100 WBC (Bld) 2.2 % . [facility] Erythrocyte distribution wid th Auto (RBC) [Ratio]Ordered By: Rose Ohara on 04-12-2023 Erythrocyte distribution width (RBC) [Ratio] 14.7 % 11.9-15.3 [facility] Globulin Calc (S) [Mass/Vol] Ordered By: Rose Ohara on 04-12-2023 Globulin (S) [Mass/Vol] 2.6 g/dL [facility] Glucose [Mass/volume] in Ser um or PlasmaOrdered By: Rose Ohara on 04-12-2023 Glucose [Mass/Vol] 203 mg/dL 70-100 [facility] Comment on above: ADA recommended refe rence rangeRandom Glucose Reference Range is dependent on time and content of last meal. Glucose of more than 200 mg/dL in a nonstressed, ambulatory subject supports the diagnosis of Diabetes Mellitus. Hematocrit Auto (Bld) [Volum e fraction]Ordered By: Rose Ohara on 04-12-2023 Hematocrit (Bld) [Volume fraction] 41.4 % 34.0-46.4 [facility] Hemoglobin [Mass/volume] in BloodOrdered By: Rose Ohara on 04-12-2023 Hemoglobin (Bld) [Mass/Vol] 13.5 g/dL 11.8-15.4 [facility] LDH Lactate Dehydrogenaseon 04-12-2023 LDH Lactate Dehydrogenase 120 U/L Low 140-271 [facility] Comment on above: Result Comment: PERF ORMED BY: [place] [address] PATHOLOGIST FILLING TECHNICIAN SHEBA RICO M.D. Performed By: #### C BC, LDH, CMP #### [address] Lactate dehydrogenase [Enzym atic activity/volume] in Serum or Plasma by Lactate to pyOrdered By: Rose Ohara on 04-12-2023 LDH Lactate to pyruvate reaction [Catalytic activity/Vol] 120 U/L 140-271 [facility] Leukocytes [#/volume] correc jin for nucleated erythrocytes in Blood by Automated counOrdered By: Rose Ohara on 04-12-2023 WBC corrected for nucl RBC Auto (Bld) [#/Vol] 6.9 10*3/uL 3.8-11.6 [facility] Lymphocytes Auto (Bld) [#/Vo l]Ordered By: Rose Ohara on 04-12-2023 Lymphocytes (Bld) [#/Vol] 1.8 10*3/uL 1.00-4.8 [facility] Lymphocytes/100 WBC Auto (Bl d)Ordered By: Rose Ohara on 04-12-2023 Lymphocytes/100 WBC (Bld) 26.0 % . [facility] MCH Auto (RBC) [Entitic mass ]Ordered By: Rose Ohara on 04-12-2023 MCH (RBC) [Entitic mass] 29.3 pg 24.7-34.3 [facility] MCHC Auto (RBC) [Mass/Vol]Or dered By: Rose Ohara on 04-12-2023 MCHC (RBC) [Mass/Vol] 32.7 g/dL 32.0-35.0 [facility] MCV Auto (RBC) [Entitic vol] Ordered By: Rose Ohara on 04-12-2023 MCV (RBC) [Entitic vol] 89.4 fL 80-100 [facility] Monocytes Auto (Bld) [#/Vol] Ordered By: Rose Ohara on 04-12-2023 Monocytes (Bld) [#/Vol] 0.6 10*3/uL 0.0-0.8 [facility] Monocytes/100 WBC Auto (Bld) Ordered By: Rose Ohara on 04-12-2023 Monocytes/100 WBC (Bld) 8.6 % . [facility] Neutrophils Auto (Bld) [#/Vo l]Ordered By: Rose Ohara on 04-12-2023 Neutrophils (Bld) [#/Vol] 4.3 10*3/uL 1.8-7.7 [facility] Neutrophils/100 WBC Auto (Bl d)Ordered By: Rose Ohara on 04-12-2023 Neutrophils/100 WBC (Bld) 62.3 % . [facility] No Panel InformationOrdered By: Rose Ohara on 04-12-2023 Estimated GFR (CKD-EPI) 58.780 mL/Min [facility] Creatinine Clearance (Chem 54.77 [facility] Nucleated erythrocytes [Pres ence] in Blood by Automated countOrdered By: Rose Ohara on 04-12-2023 Nucleated RBC Auto Ql (Bld) 0.1 /100{WBC} 0-0.5 [facility] Platelet mean volume Auto (B ld) [Entitic vol]Ordered By: Rose Ohara on 04-12-2023 Platelet mean volume (Bld) [Entitic vol] 8.3 fL 6.3-10.7 [facility] Platelets Auto (Bld) [#/Vol] Ordered By: Rose Ohara on 04-12-2023 Platelets (Bld) [#/Vol] 197 10*3/uL 150-450 [facility] Potassium [Moles/volume] in Serum or PlasmaOrdered By: Rose Ohara on 04-12-2023 Potassium [Moles/Vol] 4.8 mmol/L 3.5-5.1 [facility] Protein [Mass/volume] in Ser um or PlasmaOrdered By: Rose Ohara on 04-12-2023 Protein [Mass/Vol] 6.7 g/dL 6.4-8.9 [facility] RBC Auto (Bld) [#/Vol]Ordere d By: Rose Ohara on 04-12-2023 RBC (Bld) [#/Vol] 4.62 10*6/uL 3.60-5.00 [facility] Serum or plasma albumin/glob ulin mass ratioOrdered By: Rose Ohara on 04-12-2023 Albumin/Globulin [Mass ratio] 1.6 {ratio} [facility] Serum or plasma anion gap de terminationOrdered By: Rose Ohara on 04-12-2023 Anion gap [Moles/Vol] 15.6 mmol/L 6.0-15.0 [facility] Sodium [Moles/volume] in Ser um or PlasmaOrdered By: Rose Ohara on 04-12-2023 Sodium [Moles/Vol] 140 mmol/L 136-145 [facility] Urea nitrogen [Mass/volume] in Serum or PlasmaOrdered By: Rose Ohara on 04-12-2023 Urea nitrogen [Mass/Vol] 34 mg/dL 7-25 [facility] WBC Auto (Bld) [#/Vol]Ordere d By: Rose Ohara on 04-12-2023 WBC (Bld) [#/Vol] 6.9 10*3/uL 3.8-11.6 [facility] US extremity nonvascularon 0 04-07-2023 US extremity nonvascular [place] [address] Ultrasound Report Signed Patient: Tosha Mcneal MR#: [id number] : 1950 Acct:[id number] Age/Sex: 72 / F ADM Date: 04/07/23 Loc: Room: Type[facility] Attending Dr: Rose Ohara MD Ordering Provider: [...] Kruse Jr., D.O.04/07/2023 8:57 AM Dictation Location: [facility] Tech: Valerie Frankel Transcribed By: SRUTHI 04/07/23 0857 Dictated By: Miki Kruse Jr, DO 04/07/23 0844 Signed By: 04/07/23 0857 Normal [facility] LIPID PROFILEon 03-03-2023 CHOL-HDL RATIO NORM SEE BELOW Normal [facility] Comment on above: Result Comment: 3.3 - 4.4 LOW RISK 4.4 - 7.1 AVERAGE RISK 7.1 - 11.0 MODERATE RISK >11.0 HIGH RISK Performed By: #### L IPID #### [facility] [address] [place] [address] [address] Claudia Branch Cholesterol [Mass/Vol] 129 mg/dL Normal <=200 [facility] Comment on above: Performed By: #### L IPID #### [facility] [address] [place] [address] [address] Claudia Branch Cholesterol in HDL [Mass/Vol] 43 mg/dL Normal 40-60 [facility] Comment on above: Performed By: #### L IPID #### [facility] [address] [place] [address] [address] Claudia Branch Cholesterol in LDL [Mass/Vol] 34.4 mg/dL Normal [facility] Comment on above: Performed By: #### L IPID #### [facility] [address] [place] [address] [address] Claudia Branch Cholesterol.total/Chol esterol in HDL [Mass ratio] 3.0 {ratio} Normal [facility] Comment on above: Performed By: #### L IPID #### [facility] [address] [place] [address] [address] Claudia Branch HDL NORMAL > or = 60 mg/dl - LO W CARDIOVASCULAR RISK <40 mg/dl - HIGH CARDIOVASCULAR RISK Normal [facility] Comment on above: Performed By: #### L IPID #### [facility] [id number] Claudia Branch LDL CALC NORMAL SEE BELOW Normal [facility] Comment on above: Result Comment: <100 mg/dl OPTIMAL 100 - 129 mg/dl NEAR OR ABOVE OPTIMAL 130 - 159 mg/dl BORDERLINE HIGH 160 - 189 mg/dl HIGH >190 mg/dl VERY HIGH Performed By: #### L IPID #### [facility] [address] [place] [address] Dr. Claudia Branch Triglyceride [Mass/Vol] 258 mg/dL Critically high <=150 [facility] Comment on above: Performed By: #### L IPID #### [facility] [address] [place] [address] Dr. Claudia Branch VLDL CALC 51.6 mg/dL Normal [facility] Comment on above: Performed By: #### L IPID #### [facility] [address] [place] [address] Dr. Claudia Branch PROF 14(COMP METB)on 023 Albumin [Mass/Vol] 3.7 g/dL Normal 3.4-5.0 [facility] Comment on above: Performed By: #### C MP #### [facility] [address] [place] [address] Dr. Claudia Branch Albumin/Globulin [Mass ratio] 1.1 {ratio} Normal [facility] Comment on above: Performed By: #### C MP #### [facility] [address] [place] [address] Dr. Claudia Branch ALP [Catalytic activity/Vol] 66 U/L Normal 46-116 [facility] Comment on above: Performed By: #### C MP #### [facility] [address] [place] [address] Dr. Claudia Branch ALT [Catalytic activity/Vol] 22 U/L Normal 14-59 [facility] Comment on above: Performed By: #### C MP #### [facility] [address] [place] [address] Dr. Claudia Branch Anion gap [Moles/Vol] 15.4 mmol/L Normal Th [facility] Comment on above: Performed By: #### C MP #### [facility] [address] [place] [address] Dr. Claudia Branch AST [Catalytic activity/Vol] 14 U/L Critically low 15-37 [facility] Comment on above: Performed By: #### C MP #### [facility] [address] [place] [address] Dr. Claudia Branch Bilirubin [Mass/Vol] 1.0 mg/dL Normal 0.2-1.0 [facility] Comment on above: Performed By: #### C MP #### [facility] [address] [place] [address] Dr. Claudia Branch Calcium [Mass/Vol] 9.4 mg/dL Normal 8.5-10.1 [facility] Comment on above: Performed By: #### C MP #### [facility] [address] [address] [address] Claudia Branch Chloride [Moles/Vol] 102 mmol/L Normal 98-107 [facility] Comment on above: Performed By: #### C MP #### [facility] [address] [place] [address] Dr. Claudia Branch CO2 [Moles/Vol] 28.0 mmol/L Normal 21.0-32.0 [facility] Comment on above: Performed By: #### C MP #### [facility] [address] [place] [address] Dr. Claudia Branch Creatinine [Mass/Vol] 1.04 mg/dL Critically high 0.55-1.02 [facility] Comment on above: Performed By: #### C MP #### [facility] [address] [place] [address] Dr. Claudia Branch EGFR-AF WALLISIAN >60 Normal >=60 [facility] Comment on above: Performed By: #### C MP #### [facility] [address] [place] [address] Dr. Claudia Branch EGFR-NON AF WALLISIAN 52 mL/min/1.73m2 Critically low >=60 [facility] Comment on above: Performed By: #### C MP #### [facility] [address] [address] [address] Claudia Branch Globulin (S) [Mass/Vol] 3.5 g/dL Normal [facility] Comment on above: Performed By: #### C MP #### [facility] [address] [place] [address] Dr. Claudia Branch Glucose [Mass/Vol] 174 mg/dL Critically high 74-106 T [facility] Comment on above: Performed By: #### C MP #### [facility] [address] [address] [address] Claudia Branch Potassium [Moles/Vol] 5.4 mmol/L Critically high 3.5-5.1 [facility] Comment on above: Performed By: #### C MP #### [facility] [address] [address] [address] Claudia Branch Protein [Mass/Vol] 7.2 g/dL Normal 6.4-8.2 [facility] Comment on above: Performed By: #### C MP #### [facility] [address] [address] [address] Claudia Branch Sodium [Moles/Vol] 140 mmol/L Normal 136-145 [facility] Comment on above: Performed By: #### C MP #### [facility] [address] [address] [address] Claudia Branch Urea nitrogen [Mass/Vol] 26.0 mg/dL Critically high 7.0-18.0 [facility] Comment on above: Performed By: #### C MP #### [facility] [address] [address] [address] Claudia Branch Urea nitrogen/Creatinine [Mass ratio] 25.0 mg/mg Normal [facility] Comment on above: Performed By: #### C MP #### [facility] [address] [address] [address] Claudia Branch Estimated glomerular filtrat ion rate (GFR) non- AmericanOrdered By: Rose Ohara on 12-21-2022 GFR/1.73 sq M.predicted among non-blacks MDRD (S/P/Bld) [Vol rate/Area] > 60 mL/Min [facility] No Panel InformationOrdered By: Rose Ohara on 12-21-2022 Estimated GFR () > 60 mL/Min [facility] Comment on above: GFR estimated refere nce range: According to KDOQI guidelines, <60 ml/min/1.73m2 is sufficient to diagnose a patient with chronic kidney disease. Albumin [Mass/volume] in Ser um or PlasmaOrdered By: Rose Ohara on 09-22-2022 Albumin [Mass/Vol] 3.7 g/dL 3.2-5.5 [facility] Basophils Auto (Bld) [#/Vol] Ordered By: Rose Ohara on 09-22-2022 Basophils (Bld) [#/Vol] 0.1 10*3/uL 0.0-0.2 [facility] Basophils/100 WBC Auto (Bld) Ordered By: Rose Ohara on 09-22-2022 Basophils/100 WBC (Bld) 1.0 % . [facility] Creatinine and Glomerular fi ltration rate.predicted panel (S/P/Bld)Ordered By: Rose Ohara on 09-22-2022 Creatinine [Mass/Vol] 0.80 mg/dL 0.44-1.03 [facility] Eosinophils Auto (Bld) [#/Vo l]Ordered By: Roes Ohara on 09-22-2022 Eosinophils (Bld) [#/Vol] 0.1 10*3/uL 0.0-0.45 [facility] Eosinophils/100 WBC Auto (Bl d)Ordered By: Rose Ohara on 09-22-2022 Eosinophils/100 WBC (Bld) 2.0 % . [facility] Erythrocyte distribution wid th Auto (RBC) [Ratio]Ordered By: Rose Ohara on 09-22-2022 Erythrocyte distribution width (RBC) [Ratio] 14.7 % 11.9-15.3 [facility] Estimated glomerular filtrat ion rate (GFR) non- AmericanOrdered By: Rose Ohara on 09-22-2022 GFR/1.73 sq M.predicted among non-blacks MDRD (S/P/Bld) [Vol rate/Area] > 60 mL/Min [facility] Globulin Calc (S) [Mass/Vol] Ordered By: Rose Ohara on 09-22-2022 Globulin (S) [Mass/Vol] 2.8 g/dL [facility] Hematocrit Auto (Bld) [Volum e fraction]Ordered By: Rose Ohara on 09-22-2022 Hematocrit (Bld) [Volume fraction] 43.2 % 34.0-46.4 [facility] Hemoglobin [Mass/volume] in BloodOrdered By: Rose Ohara on 09-22-2022 Hemoglobin (Bld) [Mass/Vol] 13.9 g/dL 11.8-15.4 [facility] - Hematology and Cell countsOrdered By: Rose Ohara on 09-22-2022 Nucleated RBC/100 WBC (Bld) [Ratio] 0.1 % 0-0.5 [facility] Lactate dehydrogenase measur ement (enzymatic activity/volume)Ordered By: Rose Ohara on 09-22-2022 LDH (Unsp spec) [Catalytic activity/Vol] 106 U/L 45-190 [facility] Leukocytes [#/volume] in Blo od by Automated countOrdered By: Rose Ohara on 09-22-2022 WBC (Bld) [#/Vol] 6.9 10*3/uL 4.5-11.0 [facility] Lymphocytes Auto (Bld) [#/Vo l]Ordered By: Rose Ohara on 09-22-2022 Lymphocytes (Bld) [#/Vol] 1.5 10*3/uL 1.00-4.8 [facility] Lymphocytes/100 WBC Auto (Bl d)Ordered By: Rose Ohara on 09-22-2022 Lymphocytes/100 WBC (Bld) 21.6 % . [facility] MCH Auto (RBC) [Entitic mass ]Ordered By: Rose Ohara on 09-22-2022 MCH (RBC) [Entitic mass] 29.0 pg 24.7-34.3 [facility] MCHC Auto (RBC) [Mass/Vol]Or dered By: Rose Ohara on 09-22-2022 MCHC (RBC) [Mass/Vol] 32.2 g/dL 32.0-35.0 [facility] MCV Auto (RBC) [Entitic vol] Ordered By: Rose Ohraa on 09-22-2022 MCV (RBC) [Entitic vol] 90.2 fL 80-100 [facility] Monocytes Auto (Bld) [#/Vol] Ordered By: Rose Ohara on 09-22-2022 Monocytes (Bld) [#/Vol] 0.7 10*3/uL 0.0-0.8 [facility] Monocytes/100 WBC Auto (Bld) Ordered By: Rose Ohara on 09-22-2022 Monocytes/100 WBC (Bld) 9.7 % . [facility] Neutrophils Auto (Bld) [#/Vo l]Ordered By: Rose Ohara on 09-22-2022 Neutrophils (Bld) [#/Vol] 4.5 10*3/uL 1.8-7.7 [facility] Neutrophils/100 WBC Auto (Bl d)Ordered By: Rose Ohara on 09-22-2022 Neutrophils/100 WBC (Bld) 65.7 % . [facility] No Panel InformationOrdered By: Rose Ohara on 09-22-2022 Estimated GFR () > 60 mL/Min [facility] Comment on above: GFR estimated refere nce range: According to KDOQI guidelines, <60 ml/min/1.73m2 is sufficient to diagnose a patient with chronic kidney disease. Pharmacy Creatinine Clearance (Chem 70.04 [facility] Platelet mean volume Auto (B ld) [Entitic vol]Ordered By: Rose Ohara on 09-22-2022 Platelet mean volume (Bld) [Entitic vol] 8.0 fL 6.3-10.7 [facility] Platelets Auto (Bld) [#/Vol] Ordered By: Rose Ohara on 09-22-2022 Platelets (Bld) [#/Vol] 227 10*3/uL 150-450 [facility] Protein [Mass/volume] in Ser um or PlasmaOrdered By: Rose Ohara on 09-22-2022 Protein [Mass/Vol] 6.5 g/dL 6.1-7.9 [facility] RBC Auto (Bld) [#/Vol]Ordere d By: Rose Ohara on 09-22-2022 RBC (Bld) [#/Vol] 4.79 10*6/uL 3.60-5.00 [facility] Serum or plasma alanine mari otransferase measurement without P-5'-P (enzymatic activiOrdered By: Rose Ohara on 09-22-2022 ALT No additional P-5'-P [Catalytic activity/Vol] 16 U/L 10-60 [facility] Serum or plasma albumin/glob ulin mass ratioOrdered By: Rose Ohara on 09-22-2022 Albumin/Globulin [Mass ratio] 1.3 {ratio} [facility] Serum or plasma alkaline danial sphatase measurement (enzymatic activity/volume)Ordered By: Rose Ohara on 09-22-2022 ALP [Catalytic activity/Vol] 45 U/L 32-92 [facility] Serum or plasma anion gap de terminationOrdered By: Rose Ohara on 09-22-2022 Anion gap [Moles/Vol] 11.0 mmol/L 6.0-15.0 [facility] Serum or plasma aspartate am inotransferase measurement (enzymatic activity/volume)Ordered By: Rose Ohara on 09-22-2022 AST [Catalytic activity/Vol] 17 U/L 10-42 [facility] Serum or plasma calcium kandi urement (mass/volume)Ordered By: Rose Ohara on 09-22-2022 Calcium [Mass/Vol] 9.2 mg/dL 8.2-10.2 [facility] Serum or plasma chloride florentino surement (moles/volume)Ordered By: Rose Ohara on 09-22-2022 Chloride [Moles/Vol] 99 mmol/L 95-114 [facility] Serum or plasma glucose kandi urement (mass/volume)Ordered By: Rose Ohara on 09-22-2022 Glucose [Mass/Vol] 113 mg/dL 70-100 [facility] Comment on above: ADA recommended refe rence rangeRandom Glucose Reference Range is dependent on time and content of last meal. Glucose of more than 200 mg/dL in a nonstressed, ambulatory subject supports the diagnosis of Diabetes Mellitus. Serum or plasma potassium me asurement (moles/volume)Ordered By: Rose Ohara on 09-22-2022 Potassium [Moles/Vol] 4.3 mmol/L 3.5-5.1 [facility] Serum or plasma sodium measu rement (moles/volume)Ordered By: Rose Ohara on 09-22-2022 Sodium [Moles/Vol] 135 mmol/L 136-146 [facility] Serum or plasma total biliru bin measurement (mass/volume)Ordered By: Rose Ohara on 09-22-2022 Bilirubin [Mass/Vol] 1.2 mg/dL 0.3-1.2 [facility] Serum or plasma total carbon dioxide measurement (moles/volume)Ordered By: Rose Ohara on 09-22-2022 CO2 [Moles/Vol] 29.3 mmol/L 22.0-30.0 [facility] Serum or plasma urea nitroge n measurement (mass/volume)Ordered By: Rose Ohara on 09-22-2022 Urea nitrogen [Mass/Vol] 16 mg/dL 9- [facility] GLYCOHEMOGLOBIN A1Con 2021 ADA RECOMMENDATION SEE BELOW Normal [facility] Comment on above: Result Comment: ADA RECOMMENDED LIMIT 4.0 - 6.0 ADA THERAPEUTIC TARGET < 7.0 ACTION SUGGESTED > 7.0 Performed By: #### A 1C #### [facility] [address] [place] [address] Dr. Claudia Branch Glucose [Mass/Vol] 169 mg/dL Normal [facility] Comment on above: Performed By: #### A 1C #### [facility] [address] [address] [address] Claudia Branch HbA1c (Bld) [Mass fraction] 7.5 % Critically high 4.5-6.2 [facility] Comment on above: Performed By: #### A 1C #### [facility] [address] [place] [address] Dr. Claudia Branch LIPID PROFILEon 08-26-2022 CHOL-HDL RATIO NORM SEE BELOW Normal [facility] Comment on above: Result Comment: 3.3 - 4.4 LOW RISK 4.4 - 7.1 AVERAGE RISK 7.1 - 11.0 MODERATE RISK >11.0 HIGH RISK Performed By: #### L IPID, CMP #### [facility] [address] [address] [address] Claudia Branch Cholesterol [Mass/Vol] 99 mg/dL Normal <=200 Th [facility] Comment on above: Performed By: #### L IPID, CMP #### [facility] [address] [address] [address] Claudia Branch Cholesterol in HDL [Mass/Vol] 45 mg/dL Normal 40-60 [facility] Comment on above: Performed By: #### L IPID, CMP #### [facility] [address] [address] [address] Claudia Branch Cholesterol in LDL [Mass/Vol] 22.6 mg/dL Normal [facility] Comment on above: Performed By: #### L IPID, CMP #### [facility] [address] [address] [address] Claudia Branch Cholesterol.total/Chol esterol in HDL [Mass ratio] 2.2 {ratio} Normal [facility] Comment on above: Performed By: #### L IPID, CMP #### [facility] [address] [address] [address] Claudia Branch HDL NORMAL > or = 60 mg/dl - LO W CARDIOVASCULAR RISK <40 mg/dl - HIGH CARDIOVASCULAR RISK Normal [facility] Comment on above: Performed By: #### L IPID, CMP #### [facility] [address] [address] [address] Claudia Branch LDL CALC NORMAL SEE BELOW Normal [facility] Comment on above: Result Comment: <100 mg/dl OPTIMAL 100 - 129 mg/dl NEAR OR ABOVE OPTIMAL 130 - 159 mg/dl BORDERLINE HIGH 160 - 189 mg/dl HIGH >190 mg/dl VERY HIGH Performed By: #### L IPID, CMP #### [facility] [address] [address] [address] Claudia Branch Triglyceride [Mass/Vol] 157 mg/dL Critically high <=150 [facility] Comment on above: Performed By: #### L IPID, CMP #### [facility] [address] [place] [address] Dr. Claudia Branch VLDL CALC 31.4 mg/dL Normal [facility] Comment on above: Performed By: #### L IPID, CMP #### [facility] [address] [address] [address] Claudia Branch PROF 14(COMP METB)on 022 Albumin [Mass/Vol] 3.9 g/dL Normal 3.4-5.0 [facility] Comment on above: Performed By: #### L IPID, CMP #### [facility] [address] [address] [address] Claudia Branch Albumin/Globulin [Mass ratio] 1.0 {ratio} Normal [facility] Comment on above: Performed By: #### L IPID, CMP #### [facility] [address] [address] [address] Claudia Branch ALP [Catalytic activity/Vol] 57 U/L Normal 46-116 [facility] Comment on above: Performed By: #### L IPID, CMP #### [facility] [address] [address] [address] Claudia Branch ALT [Catalytic activity/Vol] 22 U/L Normal 14-59 [facility] Comment on above: Performed By: #### L IPID, CMP #### [facility] [address] [address] [address] Claudia Branch Anion gap [Moles/Vol] 10.7 mmol/L Normal [facility] Comment on above: Performed By: #### L IPID, CMP #### [facility] [address] [address] [address] Claudia Branch AST [Catalytic activity/Vol] 11 U/L Critically low 15-37 [facility] Comment on above: Performed By: #### L IPID, CMP #### [facility] [address] [address] [address] Claudia Branch Bilirubin [Mass/Vol] 1.4 mg/dL Critically high 0.2-1.0 [facility] Comment on above: Performed By: #### L IPID, CMP #### [facility] [address] [address] [address] Claudia Branch Calcium [Mass/Vol] 9.3 mg/dL Normal 8.5-10.1 [facility] Comment on above: Performed By: #### L IPID, CMP #### [facility] [address] [address] [address] Claudia Branch Chloride [Moles/Vol] 103 mmol/L Normal 98-107 [facility] Comment on above: Performed By: #### L IPID, CMP #### [facility] [address] [address] [address] Claudia Branch CO2 [Moles/Vol] 31.2 mmol/L Normal 21.0-32.0 [facility] Comment on above: Performed By: #### L IPID, CMP #### [facility] [address] [address] [address] Claudia Branch Creatinine [Mass/Vol] 0.83 mg/dL Normal 0.55-1.02 [facility] Comment on above: Performed By: #### L IPID, CMP #### [facility] [address] [address] [address] Claudia Branch EGFR-AF WALLISIAN >60 Normal >=60 [facility] Comment on above: Performed By: #### L IPID, CMP #### [facility] [address] [place] [address] Dr. Claudia Branch EGFR-NON AF WALLISIAN >60 Normal >=60 [facility] Comment on above: Performed By: #### L IPID, CMP #### [facility] [address] [address] [address] Claudia Branch Globulin (S) [Mass/Vol] 3.6 g/dL Normal [facility] Comment on above: Performed By: #### L IPID, CMP #### [facility] [address] [address] [address] Claudia Branch Glucose [Mass/Vol] 114 mg/dL Critically high 74-106 [facility] Comment on above: Performed By: #### L IPID, CMP #### [facility] [address] [address] [address] Claudia Branch Potassium [Moles/Vol] 4.4 mmol/L Normal 3.5-5.1 [facility] Comment on above: Performed By: #### L IPID, CMP #### [facility] [address] [address] [address] Claudia Branch Protein [Mass/Vol] 7.5 g/dL Normal 6.4-8.2 [facility] Comment on above: Performed By: #### L IPID, CMP #### [facility] [address] [place] [address] Dr. Claudia Branch Sodium [Moles/Vol] 141 mmol/L Normal 136-145 [facility] Comment on above: Performed By: #### L IPID, CMP #### [facility] [address] [place] [address] Dr. Claudia Branch Urea nitrogen [Mass/Vol] 20.0 mg/dL Critically high 7.0-18.0 [facility] Comment on above: Performed By: #### L IPID, CMP #### [facility] [address] [place] [address] Dr. Claudia Branch Urea nitrogen/Creatinine [Mass ratio] 24.0 mg/mg Normal [facility] Comment on above: Performed By: #### L IPID, CMP #### [facility] [address] [place] [address] Dr. Claudia Branch GI PANEL (PCR)on 08-11-2022 Adenovirus F 40/41 Not detected Normal NOT DETECTED [facility] Comment on above: Performed By: #### G IPANEL #### [facility] [address] [place] [address] Dr. Claudia Branch Astrovirus Not detected Normal NOT DETECTED [facility] Comment on above: Performed By: #### G IPANEL #### [facility] [address] [place] [address] Dr. Claudia Branch C. Diff toxin A/B Detected Critically abnormal NOT DETECTED [facility] Comment on above: Performed By: #### G IPANEL #### [facility] [address] [place] [address] Dr. Claudia Branch Campylobacter Not detected Normal NOT DETECTED [facility] Comment on above: Performed By: #### G IPANEL #### [facility] [address] [place] [address] Dr. Claudia Branch Cryptosporidium Not detected Normal NOT DETECTED [facility] Comment on above: Performed By: #### G IPANEL #### [facility] [address] [place] [address] Dr. Claudia Branch Cyclos. Cayetanensis Not detected Normal NOT DETECTED [facility] Comment on above: Performed By: #### G IPANEL #### [facility] [address] [place] [address] Dr. Claudia Branch E. Coli O157 Not Applicable Normal Not Applicable [facility] Comment on above: Performed By: #### G IPANEL #### [facility] [address] [place] [address] Dr. Claudia Branch E. histolytica Not detected Normal NOT DETECTED [facility] Comment on above: Performed By: #### G IPANEL #### [facility] [address] [place] [address] Dr. Claudia Branch EAEC Not detected Normal NOT DETECTED [facility] Comment on above: Performed By: #### G IPANEL #### [facility] [address] [place] [address] Dr. Claudia Branch EIEC Not detected Normal NOT DETECTED [facility] Comment on above: Performed By: #### G IPANEL #### [facility] [address] [place] [address] Dr. Claudia Branch EPEC Not detected Normal NOT DETECTED [facility] Comment on above: Performed By: #### G IPANEL #### [facility] [address] [place] [address] Dr. Claudia Branch ETEC Not detected Normal NOT DETECTED [facility] Comment on above: Performed By: #### G IPANEL #### [facility] [address] [place] [address] Dr. Claudia Branch G. Lamblia Not detected Normal NOT DETECTED [facility] Comment on above: Performed By: #### G IPANEL #### [facility] [address] [place] [address] Dr. Claudia DOWDL CONTROLS PASSED Normal [facility] Comment on above: Performed By: #### G IPANEL #### [facility] [address] [place] [address] Dr. Claudia VONL DIEUDONNE HEADER GI PANEL BACTERIA Normal T [facility] Comment on above: Performed By: #### G IPANEL #### [facility] [address] [address] [address] Claudia RAMIREZ ECOLI GI PANEL DIARRHEAGEN IC E.COLI / SHIGELLA Normal [facility] Comment on above: Performed By: #### G IPANEL #### [facility] [address] [address] [address] Claudia RAMIREZ INFO SEE BELOW Normal [facility] Comment on above: Result Comment: EAEC - Enteroaggregative E. Coli EPEC- Enteropathogenic E. Coli ETEC- Enterotoxigenic E. Coli lt/st STEC- Shigella-like toxin-producing E. Coli stx1/stx2 EIEC- Shigella/Enteroinvasive E. Coli Performed By: #### G IPANEL #### [facility] [address] [place] [address] Dr. Claudia RAMIREZ PARASITES GI PANEL PARASITES Normal [facility] Comment on above: Performed By: #### G IPANEL #### [facility] [address] [address] [address] Claudia RAMIREZ VIRUS GI PANEL VIRUSES Normal [facility] Comment on above: Performed By: #### G IPANEL #### [facility] [address] [place] [address] Dr. Claudia Branch Norovirus GI/GII Not detected Normal NOT DETECTED [facility] Comment on above: Performed By: #### G IPANEL #### [facility] [address] [address] [address] Claudia Branch P. Shigelloides Not detected Normal NOT DETECTED [facility] Comment on above: Performed By: #### G IPANEL #### [facility] [address] [address] [address] Claudia Branch Rotavirus A Not detected Normal NOT DETECTED [facility] Comment on above: Performed By: #### G IPANEL #### [facility] [address] [place] [address] Dr. Claudia Branch Salmonella Not detected Normal NOT DETECTED [facility] Comment on above: Performed By: #### G IPANEL #### [facility] [address] [address] [address] Claudia Branch Sapovirus Not detected Normal NOT DETECTED [facility] Comment on above: Performed By: #### G IPANEL #### [facility] [address] [address] [address] Claudia Branch STEC Not detected Normal NOT DETECTED [facility] [facility] Comment on above: Performed By: #### G IPANEL #### [facility] [address] [address] [address] Claudia Branch Vibrio Not detected Normal NOT DETECTED [facility] Comment on above: Performed By: #### G IPANEL #### [facility] [address] [address] [address] Claudia Branch Vibrio Cholera Not detected Normal NOT DETECTED [facility] Comment on above: Performed By: #### G IPANEL #### [facility] [address] [place] [address] Dr. Claudia Branch Y. Enterocolitica Not detected Normal NOT DETECTED [facility] Comment on above: Performed By: #### G IPANEL #### [facility] [address] [place] [address] Dr. Claudia Branch Albumin [Mass/volume] in Ser um or PlasmaOrdered By: Rose Ohara on 06-29-2022 Albumin [Mass/Vol] 4.1 g/dL 3.2-5.5 [facility] Basophils Auto (Bld) [#/Vol] Ordered By: Rose Ohara on 06-29-2022 Basophils (Bld) [#/Vol] 0.1 10*3/uL 0.0-0.2 [facility] Basophils/100 WBC Auto (Bld) Ordered By: Rose Ohara on 06-29-2022 Basophils/100 WBC (Bld) 1.2 % . [facility] Blood hemoglobin measurement (mass/volume)Ordered By: Rose Ohara on 06-29-2022 Hemoglobin (Bld) [Mass/Vol] 15.0 g/dL 11.8-15.4 [facility] Blood leukocytes automated c ount (number/volume)Ordered By: Rose Ohara on 06-29-2022 WBC (Bld) [#/Vol] 8.4 10*3/uL 4.5-11.0 [facility] Creatinine and Glomerular fi ltration rate.predicted panel (S/P/Bld)Ordered By: Rose Ohara on 06-29-2022 Creatinine [Mass/Vol] 0.87 mg/dL 0.44-1.03 [facility] Eosinophils Auto (Bld) [#/Vo l]Ordered By: Rose Ohara on 06-29-2022 Eosinophils (Bld) [#/Vol] 0.3 10*3/uL 0.0-0.45 [facility] Eosinophils/100 WBC Auto (Bl d)Ordered By: Rose Ohara on 06-29-2022 Eosinophils/100 WBC (Bld) 3.7 % . [facility] Erythrocyte distribution wid th Auto (RBC) [Ratio]Ordered By: Rose Ohara on 06-29-2022 Erythrocyte distribution width (RBC) [Ratio] 14.9 % 11.9-15.3 [facility] Estimated glomerular filtrat ion rate (GFR) non- AmericanOrdered By: Rose Ohara on 06-29-2022 GFR/1.73 sq M.predicted among non-blacks MDRD (S/P/Bld) [Vol rate/Area] > 60 mL/Min [facility] Globulin Calc (S) [Mass/Vol] Ordered By: Rose Ohara on 06-29-2022 Globulin (S) [Mass/Vol] 3.0 g/dL [facility] Hematocrit Auto (Bld) [Volum e fraction]Ordered By: Rose Ohara on 06-29-2022 Hematocrit (Bld) [Volume fraction] 45.9 % 34.0-46.4 [facility] Laboratory - Hematology and Cell countsOrdered By: Rose Ohara on 06-29-2022 Nucleated RBC/100 WBC (Bld) [Ratio] 0.1 % 0-0.5 [facility] Lactate dehydrogenase measur ement (enzymatic activity/volume)Ordered By: Rose Ohara on 06-29-2022 LDH (Unsp spec) [Catalytic activity/Vol] 131 U/L 45-190 [facility] Lymphocytes Auto (Bld) [#/Vo l]Ordered By: Rose Ohara on 08-23-2022 Lymphocytes (Bld) [#/Vol] 1.6 10*3/uL 1.00-4.8 [facility] Lymphocytes/100 WBC Auto (Bl d)Ordered By: Rose Ohara on 06-29-2022 Lymphocytes/100 WBC (Bld) 18.8 % . [facility] MCH Auto (RBC) [Entitic mass ]Ordered By: Rose Ohara on 06-29-2022 MCH (RBC) [Entitic mass] 29.8 pg 24.7-34.3 [facility] MCHC Auto (RBC) [Mass/Vol]Or dered By: Rose Ohara on 06-29-2022 MCHC (RBC) [Mass/Vol] 32.8 g/dL 32.0-35.0 [facility] MCV Auto (RBC) [Entitic vol] Ordered By: Rose Ohara on 06-29-2022 MCV (RBC) [Entitic vol] 91.0 fL 80-100 [facility] Monocytes Auto (Bld) [#/Vol] Ordered By: Rose Ohara on 06-29-2022 Monocytes (Bld) [#/Vol] 0.8 10*3/uL 0.0-0.8 [facility] Monocytes/100 WBC Auto (Bld) Ordered By: Rose Ohara on 06-29-2022 Monocytes/100 WBC (Bld) 9.5 % . [facility] Neutrophils Auto (Bld) [#/Vo l]Ordered By: Rose Ohara on 06-29-2022 Neutrophils (Bld) [#/Vol] 5.6 10*3/uL 1.8-7.7 [facility] Neutrophils/100 WBC Auto (Bl d)Ordered By: Rose Ohara on 06-29-2022 Neutrophils/100 WBC (Bld) 66.8 % . [facility] No Panel InformationOrdered By: Rose Ohara on 06-29-2022 Estimated GFR () > 60 mL/Min [facility] Comment on above: GFR estimated refere nce range: According to KDOQI guidelines, <60 ml/min/1.73m2 is sufficient to diagnose a patient with chronic kidney disease. Pharmacy Creatinine Clearance (Chem 64.07 [facility] Platelet mean volume Auto (B ld) [Entitic vol]Ordered By: Rose Ohara on 06-29-2022 Platelet mean volume (Bld) [Entitic vol] 7.9 fL 6.3-10.7 [facility] Platelets Auto (Bld) [#/Vol] Ordered By: Rose Ohara on 06-29-2022 Platelets (Bld) [#/Vol] 226 10*3/uL 150-450 [facility] Protein [Mass/volume] in Ser um or PlasmaOrdered By: Rose Ohara on 06-29-2022 Protein [Mass/Vol] 7.1 g/dL 6.1-7.9 [facility] RBC Auto (Bld) [#/Vol]Ordere d By: Rose Ohara on 06-29-2022 RBC (Bld) [#/Vol] 5.04 10*6/uL 3.60-5.00 [facility] Serum or plasma alanine mari otransferase measurement without P-5'-P (enzymatic activiOrdered By: Rose Ohara on 06-29-2022 ALT No additional P-5'-P [Catalytic activity/Vol] 27 U/L 10-60 [facility] Serum or plasma albumin/glob ulin mass ratioOrdered By: Rose Ohara on 06-29-2022 Albumin/Globulin [Mass ratio] 1.4 {ratio} [facility] Serum or plasma alkaline danial sphatase measurement (enzymatic activity/volume)Ordered By: Rose Ohara on 06-29-2022 ALP [Catalytic activity/Vol] 56 U/L 32-92 [facility] Serum or plasma aspartate am inotransferase measurement (enzymatic activity/volume)Ordered By: Rose Ohara on 06-29-2022 AST [Catalytic activity/Vol] 26 U/L 10-42 [facility] Serum or plasma calcium kandi urement (mass/volume)Ordered By: Rose Ohara on 06-29-2022 Calcium [Mass/Vol] 10.2 mg/dL 8.2-10.2 [facility] Serum or plasma chloride florentino surement (moles/volume)Ordered By: Rose Ohara on 06-29-2022 Chloride [Moles/Vol] 102 mmol/L 95-114 [facility] Serum or plasma glucose kandi urement (mass/volume)Ordered By: Rose Ohara on 06-29-2022 Glucose [Mass/Vol] 130 mg/dL 70-100 [facility] Comment on above: ADA recommended refe rence range Random Glucose Reference Range is dependent on time and content of last meal. Glucose of more than 200 mg/dL in a nonstressed, ambulatory subject supports the diagnosis of Diabetes Mellitus. Serum or plasma potassium me asurement (moles/volume)Ordered By: Rose Ohara on 06-29-2022 Potassium [Moles/Vol] 4.9 mmol/L 3.5-5.1 [facility] Serum or plasma sodium measu rement (moles/volume)Ordered By: Rose Ohara on 06-29-2022 Sodium [Moles/Vol] 139 mmol/L 136-146 [facility] Serum or plasma total biliru bin measurement (mass/volume)Ordered By: Rose Ohara on 06-29-2022 Bilirubin [Mass/Vol] 1.2 mg/dL 0.3-1.2 [facility] Serum or plasma total carbon dioxide measurement (moles/volume)Ordered By: Rose Ohara on 06-29-2022 CO2 [Moles/Vol] 24.6 mmol/L 22.0-30.0 [facility] Serum or plasma urea nitroge n measurement (mass/volume)Ordered By: Rose Ohara on 06-29-2022 Urea nitrogen [Mass/Vol] 21 mg/dL 07-30 [facility] BNPon 04-29-2022 Natriuretic peptide B (Bld) [Mass/Vol] 280.0 pg/mL Normal <=900.0 [facility] Comment on above: Performed By: #### B MOLECULAR GENETICIST, BMP #### [facility] [address] [address] [address] Claudia Branch PROF CHEM 8 (BAS METB)on Anion gap [Moles/Vol] 17.9 mmol/L Normal [facility] Comment on above: Performed By: #### B MOLECULAR GENETICIST, BMP #### [facility] [address] [place], [place] [address] Dr. Claudia Branch Calcium [Mass/Vol] 8.9 mg/dL Normal 8.5-10.1 [facility] Comment on above: Performed By: #### B MOLECULAR GENETICIST, BMP #### [facility] [address] [address] [address] Claudia Branch Chloride [Moles/Vol] 104 mmol/L Normal 98-107 [facility] Comment on above: Performed By: #### B MOLECULAR GENETICIST, BMP #### [facility] [address] [address] [address] Claudia Branch CO2 [Moles/Vol] 23.2 mmol/L Normal 21.0-32.0 [facility] Comment on above: Performed By: #### B MOLECULAR GENETICIST, BMP #### [facility] [address] [place] [address] Dr. Claudia Branch Creatinine [Mass/Vol] 1.04 mg/dL Critically high 0.55-1.02 [facility] Comment on above: Performed By: #### B MOLECULAR GENETICIST, BMP #### [facility] [address] [place] [address] Dr. Claudia Branch EGFR-AF WALLISIAN >60 Normal >=60 [facility] Comment on above: Performed By: #### B MOLECULAR GENETICIST, BMP #### [facility] [address] [place] [address] Dr. Claudia Branch EGFR-NON AF WALLISIAN 52 mL/min/1.73m2 Critically low >=60 [facility] Comment on above: Performed By: #### B MOLECULAR GENETICIST, BMP #### [facility] [address] [place] [address] Dr. Claudia Branch Glucose [Mass/Vol] 254 mg/dL Critically high 74-106 [facility] Comment on above: Performed By: #### B MOLECULAR GENETICIST, BMP #### [facility] [address] [place] [address] Dr. Claudia Branch Potassium [Moles/Vol] 5.1 mmol/L Normal 3.5-5.1 [facility] Comment on above: Performed By: #### B MOLECULAR GENETICIST, BMP #### [facility] [address] [place] [address] Dr. Claudia Branch Sodium [Moles/Vol] 140 mmol/L Normal 136-145 [facility] Comment on above: Performed By: #### B MOLECULAR GENETICIST, BMP #### [facility] [address] [address] [address] Claudia Branch Urea nitrogen [Mass/Vol] 25.0 mg/dL Critically high 7.0-18.0 [facility] Comment on above: Performed By: #### B MOLECULAR GENETICIST, BMP #### [facility] [address] [address] [address] Claudia Branch Urea nitrogen/Creatinine [Mass ratio] 24.0 mg/mg Normal [facility] Comment on above: Performed By: #### B MOLECULAR GENETICIST, BMP #### [facility] [address] [address] [address] Claudia Branch BASIC METABOLIC PANELon 06-0 -2021 Calcium [Mass/Vol] 9.7 mg/dL Normal 8.6-10.4 [facility] Comment on above: Performed By: #### 8 99, [id number] #### [facility] [address] [address] Management Technician: Baldemar Jones MD Chloride [Moles/Vol] 106 mmol/L Normal 98-110 [facility] Comment on above: Performed By: #### 8 99, [id number] #### [facility] [address] [address] Management Technician: Baldemar Jones MD CO2 [Moles/Vol] 24 mmol/L Normal 20-32 [facility] Comment on above: Performed By: #### 8 99, [id number] #### [facility] [address] [address] Management Technician: Baldemar Jones MD Creatinine [Mass/Vol] 1.32 mg/dL High 0.60-0.[address] [facility] Comment on above: Result Comment: For patients >49 years of age, the reference limit for Creatinine is approximately 13% higher for people identified as -Citizen [place]. Performed By: #### 8 99, [id number] #### [facility] [address], [address] [place] [address] Management Technician: Baldemar Jones MD eGFR NON-AFR. WALLISIAN 40 mL/min/1.73m2 Low > OR = 60 [facility] Comment on above: Performed By: #### 8 99, [id number] #### [facility] [address] [address] Management Technician: Baldemar Jones MD GFR/1.73 sq M.predicted among blacks MDRD (S/P/Bld) [Vol rate/Area] 47 mL/min/{1.73_m2} Low > OR = 60 [facility] Comment on above: Performed By: #### 8 99, [id number] #### [facility] [address] [address] Management Technician: Baldemar Jones MD Glucose [Mass/Vol] 99 mg/dL Normal 65-99 [facility] Comment on above: Result Comment: Fasting reference interval Performed By: #### 8 99, [id number] #### [facility] [address], [address] [place] [address] Management Technician: Baldemar Jones MD Potassium [Moles/Vol] 4.6 mmol/L Normal 3.5-5.[address] [facility] [address] [facility] Comment on above: Performed By: #### 8 99, [id number] #### [facility] [address] [address] Management Technician: Baldemar Jones MD Sodium [Moles/Vol] 143 mmol/L Normal 135-146 [facility] Comment on above: Performed By: #### 8 99, [id number] #### [facility] [address] [address] Management Technician: Baldemar Jones MD Urea nitrogen [Mass/Vol] 30 mg/dL High 7-25 [facility] Comment on above: Performed By: #### 8 99, [id number] #### [facility] [address] [address] Management Technician: Baldemar Jones MD Urea nitrogen/Creatinine [Mass ratio] 23 mg/mg High 6-22 [facility] Comment on above: Performed By: #### 8 99, [id number] #### [facility] [address], [address] Management Technician: Baldemar Jones MD TSHon 04-09-2022 TSH Qn 0.67 m[IU]/L Normal 0.40-4.50 [facility] Comment on above: Performed By: #### 8 99, [id number] #### [facility] [address], [address] Management Technician: Baldemar Jones MD Albumin [Mass/volume] in Ser um or PlasmaOrdered By: Rose Ohara on 03-25-2022 Albumin [Mass/Vol] 3.8 g/dL 3.2-5.5 [facility] Basophils Auto (Bld) [#/Vol] Ordered By: Rose Ohara on 03-25-2022 Basophils (Bld) [#/Vol] 0.1 10*3/uL 0.0-0.2 [facility] Basophils/100 WBC Auto (Bld) Ordered By: Rose Ohara on 03-25-2022 Basophils/100 WBC (Bld) 1.1 % [facility] Blood hemoglobin measurement (mass/volume)Ordered By: Rose Ohara on 03-25-2022 Hemoglobin (Bld) [Mass/Vol] 14.2 g/dL 11.8-15.4 [facility] Blood leukocytes automated c ount (number/volume)Ordered By: Rose Ohara on 03-25-2022 WBC (Bld) [#/Vol] 7.4 10*3/uL 4.5-11.0 [facility] Creatinine and Glomerular fi ltration rate.predicted panel (S/P/Bld)Ordered By: Rose Ohara on 03-25-2022 Creatinine [Mass/Vol] 1.40 mg/dL 0.44-1.03 [facility] Eosinophils Auto (Bld) [#/Vo l]Ordered By: Rose Ohara on 03-25-2022 Eosinophils (Bld) [#/Vol] 0.2 10*3/uL 0.0-0.45 [facility] Eosinophils/100 WBC Auto (Bl d)Ordered By: Rose Ohara on 03-25-2022 Eosinophils/100 WBC (Bld) 2.6 % [facility] Erythrocyte distribution wid th Auto (RBC) [Ratio]Ordered By: Rose Ohara on 03-25-2022 Erythrocyte distribution width (RBC) [Ratio] 15.1 % 11.9-15.3 [facility] Estimated glomerular filtrat ion rate (GFR) non- AmericanOrdered By: Rose Ohara on 03-25-2022 GFR/1.73 sq M.predicted among non-blacks MDRD (S/P/Bld) [Vol rate/Area] 37 mL/Min [facility] Globulin Calc (S) [Mass/Vol] Ordered By: Rose Ohara on 03-25-2022 Globulin (S) [Mass/Vol] 2.5 g/dL [facility] Hematocrit Auto (Bld) [Volum e fraction]Ordered By: Rose Ohara on 03-25-2022 Hematocrit (Bld) [Volume fraction] 43.3 % 34.0-46.4 [facility] - Hematology and Cell countsOrdered By: Rose Ohara on 03-25-2022 Nucleated RBC/100 WBC (Bld) [Ratio] 0.1 % 0-0.5 [facility] Lactate dehydrogenase measur ement (enzymatic activity/volume)Ordered By: Rose Ohara on 03-25-2022 LDH (Unsp spec) [Catalytic activity/Vol] 111 U/L 45-190 [facility] Lymphocytes Auto (Bld) [#/Vo l]Ordered By: Rose Ohara on 03-25-2022 Lymphocytes (Bld) [#/Vol] 1.7 10*3/uL 1.00-4.8 [facility] Lymphocytes/100 WBC Auto (Bl d)Ordered By: Rose Ohara on 03-25-2022 Lymphocytes/100 WBC (Bld) 22.3 % [facility] MCH Auto (RBC) [Entitic mass ]Ordered By: Rose Ohara on 03-25-2022 MCH (RBC) [Entitic mass] 29.0 pg 24.7-34.3 [facility] MCHC Auto (RBC) [Mass/Vol]Or dered By: Rose Ohara on 03-25-2022 MCHC (RBC) [Mass/Vol] 32.8 g/dL 32.0-35.0 [facility] MCV Auto (RBC) [Entitic vol] Ordered By: Rose Ohara on 03-25-2022 MCV (RBC) [Entitic vol] 88.3 fL 80-100 [facility] Monocytes Auto (Bld) [#/Vol] Ordered By: Rose Ohara on 03-25-2022 Monocytes (Bld) [#/Vol] 0.7 10*3/uL 0.0-0.8 [facility] Monocytes/100 WBC Auto (Bld) Ordered By: Rose Ohara on 03-25-2022 Monocytes/100 WBC (Bld) 9.5 % [facility] Neutrophils Auto (Bld) [#/Vo l]Ordered By: Rose Ohara on 03-25-2022 Neutrophils (Bld) [#/Vol] 4.8 10*3/uL 1.8-7.7 [facility] Neutrophils/100 WBC Auto (Bl d)Ordered By: Rose Ohara on 03-25-2022 Neutrophils/100 WBC (Bld) 64.5 % [facility] No Panel InformationOrdered By: Rose Ohara on 03-25-2022 Estimated GFR () 45 mL/Min [facility] Comment on above: GFR estimated refere nce range: According to KDOQI guidelines, <60 ml/min/1.73m2 is sufficient to diagnose a patient with chronic kidney disease. Pharmacy Creatinine Clearance (Chem 39.92 [facility] Platelet mean volume Auto (B ld) [Entitic vol]Ordered By: Rose Ohara on 03-25-2022 Platelet mean volume (Bld) [Entitic vol] 8.2 fL 6.3-10.7 [facility] Platelets Auto (Bld) [#/Vol] Ordered By: Rose Ohara on 03-25-2022 Platelets (Bld) [#/Vol] 232 10*3/uL 150-450 [facility] Protein [Mass/volume] in Ser um or PlasmaOrdered By: Rose Ohara on 03-25-2022 Protein [Mass/Vol] 6.3 g/dL 6.1-7.9 [facility] RBC Auto (Bld) [#/Vol]Ordere d By: Rose Ohara on 03-25-2022 RBC (Bld) [#/Vol] 4.90 10*6/uL 3.60-5.00 [facility] Serum or plasma alanine mari otransferase measurement without P-5'-P (enzymatic activiOrdered By: Rose Ohara on 03-25-2022 ALT No additional P-5'-P [Catalytic activity/Vol] 23 U/L 10-60 [facility] Serum or plasma albumin/glob ulin mass ratioOrdered By: Rose Ohara on 03-25-2022 Albumin/Globulin [Mass ratio] 1.5 {ratio} [facility] Serum or plasma alkaline danial sphatase measurement (enzymatic activity/volume)Ordered By: Rsoe Ohara on 03-25-2022 ALP [Catalytic activity/Vol] 43 U/L 32-92 [facility] Serum or plasma aspartate am inotransferase measurement (enzymatic activity/volume)Ordered By: Rose Ohara on 03-25-2022 AST [Catalytic activity/Vol] 18 U/L 10-42 [facility] Serum or plasma calcium kandi urement (mass/volume)Ordered By: Rose Ohara on 03-25-2022 Calcium [Mass/Vol] 9.7 mg/dL 8.2-10.2 [facility] Serum or plasma chloride florentino surement (moles/volume)Ordered By: Rose Ohara on 03-25-2022 Chloride [Moles/Vol] 98 mmol/L 95-114 [facility] Serum or plasma glucose kandi urement (mass/volume)Ordered By: Rose Ohara on 03-25-2022 Glucose [Mass/Vol] 201 mg/dL 70-100 [facility] Comment on above: ADA recommended refe rence range Random Glucose Reference Range is dependent on time and content of last meal. Glucose of more than 200 mg/dL in a nonstressed, ambulatory subject supports the diagnosis of Diabetes Mellitus. Serum or plasma potassium me asurement (moles/volume)Ordered By: Rose Ohara on 03-25-2022 Potassium [Moles/Vol] 4.7 mmol/L 3.5-5.1 [facility] Serum or plasma sodium measu rement (moles/volume)Ordered By: Rose Ohara on 03-25-2022 Sodium [Moles/Vol] 139 mmol/L 136-146 [facility] Serum or plasma total biliru bin measurement (mass/volume)Ordered By: Rose Ohara on 03-25-2022 Bilirubin [Mass/Vol] 1.2 mg/dL 0.3-1.2 [facility] Serum or plasma total carbon dioxide measurement (moles/volume)Ordered By: Rose Ohara on 03-25-2022 CO2 [Moles/Vol] 27.4 mmol/L 22.0-30.0 [facility] Serum or plasma urea nitroge n measurement (mass/volume)Ordered By: Rose Ohara on 03-25-2022 Urea nitrogen [Mass/Vol] 29 mg/dL - [facility] TSH DL <= 0.005 mIU/L QnOrde red By: Rose Ohara on 03-25-2022 TSH Qn 0.89 m[IU]/L 0.45-5.33 [facility] BASIC METABOLIC PANELon 04-0 BUN/CREATININE RATIO NOT APPLICABLE Normal 6-22 [facility] Comment on above: Order Comment: FASTI NG:YES FASTING: YES Performed By: #### 4 96, [id number] #### [facility] [address], [address] [place] [address] Management Technician: Baldemar Jones MD Calcium [Mass/Vol] 9.4 mg/dL Normal 8.6-10.4 [facility] Comment on above: Order Comment: FASTI NG:YES FASTING: YES Performed By: #### 4 96, [id number] #### [facility] [address], [address] [place] [address] Management Technician: Baldemar Jones MD Chloride [Moles/Vol] 101 mmol/L Normal 98-110 [facility] Comment on above: Order Comment: FASTI NG:YES FASTING: YES Performed By: #### 4 96, [id number] #### [facility] [address], [address] [place] [address] Management Technician: Baldemar Jones MD CO2 [Moles/Vol] 31 mmol/L Normal 20-32 [facility] Comment on above: Order Comment: FASTI NG:YES FASTING: YES Performed By: #### 4 96, [id number] #### [facility] [address], [address] [place] [address] Management Technician: Baldemar Jones MD Creatinine [Mass/Vol] 0.84 mg/dL Normal 0.60-0.93 [facility] Comment on above: Order Comment: FASTI NG:YES FASTING: YES Result Comment: For patients >49 years of age, the reference limit for Creatinine is approximately 13% higher for people identified as -[place]izen [place]. Performed By: #### 4 96, [id number] #### [facility] [address], [address] [place] [address] Management Technician: Baldemar Jones MD eGFR NON-AFR. WALLISIAN 69 mL/min/1.73m2 Normal > OR = 60 [facility] Comment on above: Order Comment: FASTI NG:YES FASTING: YES Performed By: #### 4 96, [id number] #### [facility] [address], [address] [place] [address] Management Technician: Baldemar Jones MD GFR/1.73 sq M.predicted among blacks MDRD (S/P/Bld) [Vol rate/Area] 80 mL/min/{1.73_m2} Normal > OR = 60 [facility] Comment on above: Order Comment: FASTI NG:YES FASTING: YES Performed By: #### 4 96, [id number] #### [facility] [address], [address] [place] [address] Management Technician: Baldemar Jones MD Glucose [Mass/Vol] 108 mg/dL High 65-99 [facility] Comment on above: Order Comment: FASTI NG:YES FASTING: YES Result Comment: Fasting reference interval For someone without known diabetes, a glucose value between 100 and 125 mg/dL is consistent with prediabetes and should be confirmed with a follow-up test. Performed By: #### 4 96, [id number] #### [facility] [address], [address] [place] [address] Management Technician: Baldemar Jones MD Potassium [Moles/Vol] 4.5 mmol/L Normal 3.5-5.[address] [facility] [address] [facility] Comment on above: Order Comment: FASTI NG:YES FASTING: YES Performed By: #### 4 96, [id number] #### [facility] [address], [address] [place] [address] Management Technician: Baldemar Jones MD Sodium [Moles/Vol] 143 mmol/L Normal 135-146 [facility] Comment on above: Order Comment: FASTI NG:YES FASTING: YES Performed By: #### 4 96, [id number] #### [facility] [address], [address] [place] [address] Management Technician: Baldemar Jones MD Urea nitrogen [Mass/Vol] 22 mg/dL Normal 7-25 [facility] Comment on above: Order Comment: FASTI NG:YES FASTING: YES Performed By: #### 4 96, [id number] #### [facility] [address], [address] [place] [address] Management Technician: Baldemar Jones MD HEMOGLOBIN A1con 02-13-2022 HEMOGLOBIN [...] for children. Performed By: #### 4 96, [id number] #### [facility] [address], [address] [place] [address] Management Technician: Baldemar Jones MD No Panel InformationOrdered By: Bang Nunez on 01-09-2022 Adrenocorticotropic Hormone 39.5 pg/mL 7.2-63.3 [facility] [facility] Comment on above: ACTH reference inter bernarda for samples collected between 7 and 10 AM. Performed at: [address] [id number] Ethanol Operator: Braxton Austin PhD, Phone: [phone] ACTH reference inter bernarda for samples collected between 7 and10 AM.Performed at: [address] [id number] Director: Braxton Austin PhD, Phone: [phone] Thyroxine (T4) free [Mass/vo lume] in Serum or PlasmaOrdered By: Bang Nunez on 01-09-2022 Free T4 [Mass/Vol] 0.81 ng/dL 0.61-1.12 [facility] B TYPE NATRIURETIC PEPTIDE ( BNP)on 12-03-2021 Natriuretic peptide B (Bld) [Mass/Vol] 67 pg/mL Normal <100 [facility] Comment on above: Result Comment: BNP levels increase with age in the general population with the highest values seen in individuals greater than 75 years of age. Reference: J. Am. Jim. Cardiol. 2002; 40:976-982. Performed By: #### 3 5686, 15567 #### [facility] [address], [address] [place] [address] Management Technician: Baldemar Jones MD BASIC METABOLIC PANELon 11-08 Calcium [Mass/Vol] 9.4 mg/dL Normal 8.6-10.4 [facility] Comment on above: Order Comment: FASTI NG:NO FASTING: NO Performed By: #### 3 5286, 49016 #### [facility] [address], [address] [place] [address] Management Technician: Baldemar Jones MD Chloride [Moles/Vol] 99 mmol/L Normal 98-110 [facility] Comment on above: Order Comment: FASTI NG:NO FASTING: NO Performed By: #### 3 6414, 99240 #### [facility] [address], [address] [place] [address] Management Technician: Baldemar Jones MD CO2 [Moles/Vol] 32 mmol/L Normal 20-32 [facility] Comment on above: Order Comment: FASTI NG:NO FASTING: NO Performed By: #### 3 7386, 89760 #### [facility] [address], [address] [place] [address] Management Technician: Baldemar Jones MD Creatinine [Mass/Vol] 0.90 mg/dL Normal 0.60-0.93 [facility] Comment on above: Order Comment: FASTI NG:NO FASTING: NO Result Comment: For patients >49 years of age, the reference limit for Creatinine is approximately 13% higher for people identified as -Citizen Of [place]. Performed By: #### 3 7386, 23628 #### [facility] [place] [address] Management Technician: Baldemar Jones MD eGFR NON-AFR. WALLISIAN 64 mL/min/1.73m2 Normal > OR = 60 [facility] Comment on above: Order Comment: FASTI NG:NO FASTING: NO Performed By: #### 3 7386, 42004 #### [facility] [address], [address] [place] [address] Management Technician: Baldemar Jones MD GFR/1.73 sq M.predicted among blacks MDRD (S/P/Bld) [Vol rate/Area] 75 mL/min/{1.73_m2} Normal > OR = 60 [facility] Comment on above: Order Comment: FASTI NG:NO FASTING: NO Performed By: #### 3 7386, 88925 #### [facility] [address], [address] [place] [address] Management Technician: Baldemar Jones MD Glucose [Mass/Vol] 174 mg/dL High 65-139 [facility] Comment on above: Order Comment: FASTI NG:NO FASTING: NO Result Comment: Non-fasting reference interval For someone without known diabetes, a glucose value >125 mg/dL indicates that they may have diabetes and this should be confirmed with a follow-up test. Performed By: #### 3 7386, 63871 #### [facility] [address], [address] [place] [address] Management Technician: Baldemar Jones MD Potassium [Moles/Vol] 3.7 mmol/L Normal 3.5-5.[address] [facility] Comment on above: Order Comment: FASTI NG:NO FASTING: NO Performed By: #### 3 7386, 63853 #### [facility] [address], [address] [place] [address] Management Technician: Baldemar Jones MD Sodium [Moles/Vol] 143 mmol/L Normal 135-146 [facility] Comment on above: Order Comment: FASTI NG:NO FASTING: NO Performed By: #### 3 7386, 49202 #### [facility] [address], [address] [place] [address] Management Technician: Baldemar Jones MD Urea nitrogen [Mass/Vol] 35 mg/dL High 7- [facility] Comment on above: Order Comment: FASTI NG:NO FASTING: NO Performed By: #### 3 7386, 21787 #### [facility] [address], [address] [place] [address] Management Technician: Baldemar Jones MD Urea nitrogen/Creatinine [Mass ratio] 39 mg/mg High 6- [facility] Comment on above: Order Comment: FASTI NG:NO FASTING: NO Performed By: #### 3 7386, 92013 #### [facility] [address], [address] [place] [address] Management Technician: Baldemar Jones MD ALBUMIN, RANDOM URINE W/CREA [facility] 10-02-2021 ALBUMIN, URINE 0.9 mg/dL Normal See Note: [facility] Comment on above: Result Comment: Refe rence Range: Reference Range Not established Performed By: #### 7 600, 6517, 80694 #### [facility] [address], [address] [place] [address] Management Technician: Baldemar Jones MD ALBUMIN/CREATININE RATIO, RANDOM URINE [...] category. Performed By: #### 7 600, 6517, 80025 #### [facility] of [address], [address] [place] [address] Management Technician: Baldemar Jones MD Creatinine (U) [Mass/Vol] 69 mg/dL Normal 20-275 [facility] Comment on above: Performed By: #### 7 600, 6517, 63521 #### [facility] of [address], [address] [place] [address] Management Technician: Baldemar Jones MD [facility] 10-02-2021 Albumin [Mass/Vol] 4.4 g/dL Normal 3.6-5.1 [facility] Comment on above: Performed By: #### 7 600, 6517, 77178 #### [facility] of [address], [address] [place] [address] Management Technician: Baldemar Jones MD Albumin/Globulin [Mass ratio] 1.7 {ratio} Normal 1.0-2.5 [facility] Comment on above: Performed By: #### 7 600, 6517, 30313 #### [facility] of [address], [address] [place] [address] Management Technician: Baldemar Jones MD ALP [Catalytic activity/Vol] 50 U/L Normal 37-153 [facility] Comment on above: Performed By: #### 7 600, 6517, 21486 #### [facility] of [address], [address] [place] [address] Management Technician: Baldemar Jones MD ALT [Catalytic activity/Vol] 15 U/L Normal 6-29 [facility] Comment on above: Performed By: #### 7 600, 6517, 47385 #### [facility] [place] [address] Management Technician: Baldemar Jones MD AST [Catalytic activity/Vol] 15 U/L Normal 10-35 [facility] Comment on above: Performed By: #### 7 600, 6517, 81441 #### [facility] of [place] [address] Management Technician: Baldemar Jones MD Bilirubin [Mass/Vol] 1.2 mg/dL Normal 0.2-1.2 [facility] Comment on above: Performed By: #### 7 600, 65, 69564 #### [facility] of [address], [address] [place] [address] Management Technician: Baldemar Jones MD BUN/CREATININE RATIO NOT APPLICABLE Normal 6-22 [facility] Comment on above: Performed By: #### 7 600, 65, 07830 #### [facility] [place] [address] Management Technician: Baldemar Jones MD Calcium [Mass/Vol] 9.6 mg/dL Normal 8.6-10.4 [facility] Comment on above: Performed By: #### 7 600, 65, 67748 #### [facility] [place] [address] Management Technician: Baldemar Jones MD Chloride [Moles/Vol] 103 mmol/L Normal 98-110 [facility] Comment on above: Performed By: #### 7 600, 6517, 73587 #### [facility] of [place] [address] Management Technician: Baldemar Jones MD CO2 [Moles/Vol] 27 mmol/L Normal 20-32 [facility] Comment on above: Performed By: #### 7 600, 6517, 31548 #### [facility] of [place] [address] Management Technician: Baldemar Jones MD Creatinine [Mass/Vol] 0.81 mg/dL Normal 0.60-0.[address] [facility] [address] [facility] Comment on above: Result Comment: For patients >49 years of age, the reference limit for Creatinine is approximately 13% higher for people identified as -Citizen [place]. Performed By: #### 7 600, 6517, 66736 #### [facility] [place] [address] Management Technician: Baldemar Jones MD eGFR NON-AFR. WALLISIAN 73 mL/min/1.73m2 Normal > OR = 60 [facility] Comment on above: Performed By: #### 7 600, 6517, 56927 #### [facility] [place] [address] Management Technician: Baldemar Jones MD GFR/1.73 sq M.predicted among blacks MDRD (S/P/Bld) [Vol rate/Area] 85 mL/min/{1.73_m2} Normal > OR = 60 [facility] Comment on above: Performed By: #### 7 600, 65, 03918 #### [facility] [place] [address] Management Technician: Baldemar Jones MD Globulin (S) [Mass/Vol] 2.6 g/dL Normal 1.9-3.7 [facility] Comment on above: Performed By: #### 7 600, 65, 37974 #### [facility] [place] [address] Management Technician: Baldemar Jones MD Glucose [Mass/Vol] 109 mg/dL High 65-99 [facility] Comment on above: Result Comment: Fasting reference interval For someone without known diabetes, a glucose value between 100 and 125 mg/dL is consistent with prediabetes and should be confirmed with a follow-up test. Performed By: #### 7 600, 6517, 99554 #### [facility] [place] [address] Management Technician: Baldemar Jones MD Potassium [Moles/Vol] 4.1 mmol/L Normal 3.5-5.[address] [facility] Comment on above: Performed By: #### 7 600, 6517, 56517 #### [facility] [address] [place] [address] Management Technician: Baldemar Jones MD Protein [Mass/Vol] 7.0 g/dL Normal 6.1-8.1 [facility] Comment on above: Performed By: #### 7 600, 6517, 50320 #### [facility] [address], [address] [place] [address] Management Technician: Baldemar oJnes MD Sodium [Moles/Vol] 143 mmol/L Normal 135-146 [facility] Comment on above: Performed By: #### 7 600, 6517, 73468 #### [facility] of [place] [address] Management Technician: Baldemar Jones MD Urea nitrogen [Mass/Vol] 19 mg/dL Normal 7-25 [facility] Comment on above: Performed By: #### 7 600, 6517, 74190 #### [facility] [address], [address] [place] [address] Management Technician: Baldemar Jones MD LIPID PANEL, [address] Cholesterol [Mass/Vol] 106 mg/dL Normal <200 [facility] Comment on above: Order Comment: FASTI NG:YES FASTING: YES Performed By: #### 7 600, 6517, 37682 #### [facility] of [place] [address] Management Technician: Baldemar Jones MD Cholesterol in HDL [Mass/Vol] 44 mg/dL Low > OR = 50 [facility] Comment on above: Order Comment: FASTI NG:YES FASTING: YES Performed By: #### 7 600, 6517, 54679 #### [facility] of [place] [address] Management Technician: Baldemar Jones MD Cholesterol in LDL [Mass/Vol] [...] LDL-C. Theo SS et al. KEZIA. 2013;310(19): 2109-9295 (http://education.[employer].Dextr/faq/WEJ376) Performed By: #### 7 600, 6517, 11032 #### [facility] [address], [address] [place] [address] Management Technician: Baldemar Jones MD Cholesterol.total/Chol esterol in HDL [Mass ratio] 2.4 {ratio} Normal <5.0 [facility] Comment on above: Order Comment: FASTI NG:YES FASTING: YES Performed By: #### 7 600, 6517, 27022 #### [facility] [address], [address] [place] [address] Management Technician: Baldemar Jones MD NON HDL CHOLESTEROL 62 mg/dL (calc) Normal <130 [facility] Comment on above: Order Comment: FASTI NG:YES FASTING: YES Result Comment: For patients with diabetes plus 1 major ASCVD risk factor, treating to a non-HDL-C goal of <100 mg/dL (LDL-C of <70 mg/dL) is considered a therapeutic option. Performed By: #### 7 600, 6517, 82362 #### [facility] [address], [address] [place] [address] Management Technician: Baldemar Jones MD Triglyceride [Mass/Vol] 185 mg/dL High <150 [facility] Comment on above: Order Comment: FASTI NG:YES FASTING: YES Performed By: #### 7 600, 6517, 42069 #### [facility] [address], [address] [place] [address] Management Technician: Baldemar Jones MD Laboratory - Chemistry and C hemistry - challengeOrdered By: Rose Ohara on 08-17-2021 Lipase [Catalytic activity/Vol] 27.0 U/L 22-51 [facility] Random cortisol measurementO rdered By: Rose Ohara on 08-17-2021 Cortisol [Mass/Vol] 10.1 ug/dL [facility] Comment on above: Reference range: AM 6 - 24 ug/dl PM <10 ug/dl Reference range: AM 6 - 24 ug/dl PM <10 ug/dl Creatinine (Bld) [Mass/Vol]O rdered By: Bang Nunez on 06-19-2021 Creatinine [Mass/Vol] 0.6 mg/dL 0.6-1.3 [facility] Comment on above: ER/ESD physician is notified/shown all ISTAT results. Critical values may be confirmed by laboratory testing if deemed necessary by ER attending doctor. ER/ESD physician is notified/shown all ISTAT results.Critical values may be confirmed by laboratory testing ifdeemed necessary by ER attending doctor. No Panel InformationOrdered By: Bang Nunez on 06-19-2021 POC Estimated GFR > 60 [facility] Comment on above: GFR estimated refere nce range: According to KDOQI guidelines, <60 ml/min/1.73m2 is sufficient to diagnose a patient with chronic kidney disease. POC Estimated GFR Non- Amer > 60 [facility] Glucose Glucometer (BldC) [M ass/Vol]Ordered By: Bang Nunez on 06-17-2021 Glucose [Mass/Vol] 124 mg/dL [facility] Comment on above: Random Glucose Refer ence Range is dependent on time and content of last meal. Glucose of more than 200 mg/dL in a nonstressed, ambulatory subject supports the diagnosis of Diabetes Mellitus. COVID-19 Positive/Negativeon 02-13-2021 SARS-CoV-2 (COVID-19) N gene KIP+probe Ql (Resp) Negative Negative [facility] Comment on above: Reference: Negative Testing for SARS-CoV-2 by RT-PCR This test was developed and its performance characteristics determined by [employer] ([employer]) and validated at the [facility]. This test has not been FDA cleared [...] and its performance characteristics determined by [employer] ([employer]) and validated at the [facility]. This test has not been FDA cleared [...] (COVID-19) RNA KIP+probe Ql (Unsp spec) N/A [facility] No Panel Informationon 12-22 Bedside Glucose Comment Glu2: cleaned meter [facility] Dermatopathologyon Dermatopathology [facility] [address] [place] [id number] DERMATOPATHOLOGY REPORT Name:TOSHA MCNEAL [facility]. Rec #. [id number] Location: Date of Procedure: 11/28/2020 Race: Date [...] control slides stain appropriately. The prior biopsy [id number] was received and reviewed. The morphology is [...] determined by the Department of Pathology at [facility]. The FDA does not require this test [...] appropriately. Electronically Signed Out By JANNETH PONCE MD/[facility] By the signature on this report, the individual or group listed as making the Final Interpretation/Diagnosis certifies that they have reviewed this case. Clinical History: A: Non sentinal lymph node. Excision. B: [facility] Lymph node count 1005. (Hospital Outpatient) Specimens Submitted As: A: NODE, RIGHT AXILLARY NON-SENTINEL LYMPH NODE B: NODE, RIGHT AXILLARY SENTINEL LYMPH NODE COUNT 1005 Gross Description: A: Received in formalin is a ackerman-yellow irregularly shaped piece of tissue measuring [id number]. The specimen is inked and embedded in toto. B: Received in formalin is one ackerman-yellow irregularly shaped piece of tissue measuring [id number]. The specimen is inked and embedded in toto in three blocks. ink/12/01/2020 Microscopic Description: A. Microscopic examination reveals a lymph node with normal architecture. No melanoma is seen on H and E staining. Melan-A, SOX-10, and HMB45 stains are unremarkable. All control slides stain appropriately. Normal [facility] Comment on above: Performed By: #### D #### Dermatopathology GLUCOSE-POCTon 11-28-2020 Glucose [Mass/Vol] 136 mg/dL High 74 - 99 [facility] Comment on above: Performed By: #### G WAYNE #### [facility] [address] [place] [address] Glucose [Mass/Vol] 135 mg/dL High 74 - 99 [facility] Work Phone: Comment on above: Performed By: #### G WAYNE #### [facility] [address] [facility] [place] [address] History and Physical - Surge ry > 30 dayson 11-28-2020 History and Physical - Surgery > 30 days History of Present Illness: History Present Illness: Reason for surgery: melanoma 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 COMPARISON: None. ACCESSION NUMBER(S): [id number] ORDERING CLINICIAN: CEDRICK BERGER TECHNIQUE: DIVISION OF [...] lymph node localization to the right axilla. Supervisor Phosphatic Fertilizer images were sent to PACS. I personally reviewed the images/study and I agree with the findings as stated. This study was interpreted at [facility], [place], [place]. Electronically signed by: RICKI SALGADO MD Normal [facility] Patient Profile - Adult v2on 11-28-2020 Patient Profile - Adult v2 This report has been cancelled. Normal [facility] Patient Profile - Preop v2on 11-28-2020 Patient Profile - Preop v2 Profile: Initial Info: How to be AddressedSUZANNE(1) Spoken Language PreferredEnglish (1) Source of Informationpatient Are you currently using the Personal Electronic Health Record or Certus Stated Reason for Admissioninjection in my lymph nodes Primary Contact Name and Numberharry-spouse Limitations on Visitors/Phone Callsonly spouse may visit Patient Belongingsremains with patient; patient educated regarding responsibility for personal items Patient Belongings Remaining with Patientclothing; vision aids; dental appliance Medications Brought to Hospitalno General Health: Weight in kg94.2 kilogram(s) Weight in ncj409.6 pound(s) Weight Methodactual (measured) Scale Typechair Height [...] Arrangementshouse Lives Withspouse Resource/Environmental Concernsnone Anticipated Transition [place] [facility] Anticipated at Transitionnone Substance: Current or [...] instruction; written material Cultural Considerationsnone Developmental Considerationsnone Caodaism Considerationsnone Other learner availableno [place] RiskPatient location auto qualifies him/her for HIGH RISK. Are there any cultural, spiritual, moravian practices/values/needs that are important for us to [...] Past Medical History, Active Electronic Signatures: Melonie Melgar (KENNEDY) (Signed 28-Nov-2020 08:00) Authored: Initial Info, General Health, Health Mgmt, Relationship/Environ, Substance, Risk Screens, Additional Information Last Updated: 28-Nov-2020 08:00 by Melonie Melgar (KENNEDY) References: 1. Data Referenced From Patient Profile - Adult v2 28-Nov-2020 07:19 Normal [facility] Preop Checkliston 11-28-2020 Preop Checklist Preop Checklist: Preop Checklist: Arrival [id number] Arrival Time07:00 Procedure Typeinjection of right arm excision scar Heart Rate65 beats per minute Respiratory Rate16 breath per minute Blood Pressure [id number] mm/Hg Blood Pressure Dyrmnbcin17 mm/Hg NPO [id number] 10:30 ID Band Onyes Allergy Bandno known allergies Consent Signedyes H&P Completeyes EKG Performedyes Chest X-Ray Performednot ordered HCG Urine TestN/A Chlorhexadine Bath Givennot applicable Nasal Antiseptic Appliednot applicable Hair Washednot applicable Soap and water bath with hair shampoo the night before surgerynot applicable Hat placed on prior to transportnot applicable SCD's Appliednot applicable [...] Last Updated: 28-Nov-2020 07:26 by Evelin Lovett (PERLA) Normal [facility] CORONAVIRUS 2019, SCREEN ASY MPTOMATICon 11-26-2020 SARS-CoV-2 (COVID-19) RNA KIP+probe Ql (Unsp spec) Not detected Normal Not Detected [facility] Comment on above: Result Comment: [...] patient management decisions. Fact sheet for providers: https://www.fda.gov/media/078862/download Fact sheet for patients: https://www.fda.gov/media/642928/download This test has received FDA Emergency Use Authorization (EUA) and has been verified by [facility] ([facility]). This test is only authorized for the duration of time that circumstances exist to justify the authorization of the emergency use of in vitro diagnostic tests for the detection of SARS-CoV-2 virus and/or diagnosis of COVID-19 infection under section 564(b)(1) of the Act, 21 U.S.C. 360bbb-3(b)(1), unless the authorization is terminated or revoked sooner. [facility] is certified under CLIA-88 as qualified to perform high complexity testing. Testing is performed in the [facility] laboratories located at [address] [place] [address]. Performed By: #### C OVSC #### [place] [address] Lab Specimen Source Nasal, Nasopharyngeal Normal [facility] Comment on above: Performed By: #### C OVSC #### [place] [address] Coronavirus 2019 RNA by PCR, Screening Asymptomticon 11-26-2020 Coronavirus 2019 RNA by PCR, Screening Asymptomtic NOT DETECTED See Below RZ-Amnucoc-R [facility] Work Phone: Comment on above: SOURCE: Nasal, [...] make patient management decisions.Fact sheet for providers: https://www.fda.gov/media/938094/downloadFact sheet for patients: https://www.fda.gov/media/775425/downloadThis test has received FDA Emergency Use Authorization (EUA) and has been verified by [facility] ([facility]). This test is only authorized for the duration of time that circumstances exist to justify the authorization of the emergency use of in vitro diagnostic tests for the detection of SARS-CoV-2 virus and/or diagnosis of COVID-19 infection under section 564(b)(1) of the Act, 21 U.S.C. 360bbb-3(b)(1), unless the authorization is terminated or revoked sooner. [facility] is certified under CLIA-88 as qualified to perform high complexity testing. Testing is performed in the [facility] laboratories located at [address] [place] [address]. Covid 19 Resultson 1 SARS-CoV-2 (COVID-19) RNA [...] You may also be contacted by the [facility] of Health to see if any of your close [...] or Naproxen (Aleve) can also be used. Ltti-ton-pavqgxx cough and cold medicines can be used according to the instructions on the package. Some bqkj-zwc-bmdzafm medicines also contain acetaminophen. Make sure you [...] water are not available, use alcohol-based hand accounts payable supervisor. Avoid touching your eyes, nose, and mouth [...] ibuprofen (Motrin) (more content not included)... Normal [facility] BASIC METABOLIC PANELon 11-07 Anion gap [Moles/Vol] 15 mmol/L Normal 10 - 20 [facility] Comment on above: Performed By: #### B MP #### [facility] [address] [place] [address] Calcium [Mass/Vol] 9.7 mg/dL Normal 8.6 - 10.3 [facility] Comment on above: Performed By: #### B MP #### [address] [address] Chloride [Moles/Vol] 99 mmol/L Normal 98 - 107 [facility] Comment on above: Performed By: #### B MP #### [address] [address] Creatinine [Mass/Vol] 0.64 mg/dL Normal 0.50 - 1.05 [facility] Comment on above: Performed By: #### B MP #### [address] [address] GFR- AM. >60 Normal >60 [facility] Comment on above: Result Comment: CALC ULATIONS OF ESTIMATED GFR ARE PERFORMED USING THE MDRD STUDY EQUATION FOR THE IDMS-TRACEABLE CREATININE METHODS. CLIN CHEM 2007;53:766-72 Performed By: #### B MP #### [address] [address] GFR-NON AM. >60 Normal >60 [facility] [place] Comment on above: Performed By: #### B MP #### [address] [address] Glucose [Mass/Vol] 105 mg/dL High 74 - 99 [facility] Comment on above: Performed By: #### B MP #### [address] [address] HCO3 (Bld) [Moles/Vol] 30 mmol/L Normal 21 - 32 [facility] Comment on above: Performed By: #### B MP #### [address] [address] Potassium [Moles/Vol] 3.7 mmol/L Normal 3.5 - 5.3 [facility] Comment on above: Performed By: #### B MP #### [address] [address] Sodium [Moles/Vol] 140 mmol/L Normal 136 - 145 [facility] Comment on above: Performed By: #### B MP #### [address] [address] Urea nitrogen [Mass/Vol] 18 mg/dL Normal 6 - 23 [facility] Comment on above: Performed By: #### B MP #### [facility] [address] [place] [address] Metabolic Panelon 11-21-2020 Anion gap [Moles/Vol] 15 mmol/L 10 - 20 MG- SurgeryS [facility] Work Phone: Comment on above: Ordering Provider: Daniela REBOLLEDO [address] Calcium [Mass/Vol] 9.7 mg/dL 8.6 - 10.3 [facility] Work Phone: Comment on above: Ordering Provider: Daniela REBOLLEDO [address] Chloride [Moles/Vol] 99 mmol/L 98 - 107 [facility] Work Phone: Comment on above: Ordering Provider: Daniela REBOLLEDO [address] CO2 [Moles/Vol] 30 mmol/L 21 - 32 MG-Surger yS [facility] Work Phone: Comment on above: Ordering Provider: Daniela REBOLLEDO [address] Creatinine [Mass/Vol] 0.64 mg/dL See Below [facility] Work Phone: Comment on above: Reference Range: 0.5 0 - 1.05 Ordering Provider: Daniela REBOLLEDO [address] Glucose [Mass/Vol] 105 mg/dL above high threshold 74 - 99 BO-Atcdwjx-L [facility] Work Phone: Comment on above: Ordering Provider: Daniela REBOLLEDO [address] Potassium [Moles/Vol] 3.7 mmol/L 3.5 - 5.3 MG- SurgeryS [facility] Work Phone: Comment on above: Ordering Provider: Daniela REBOLLEDO [address] Sodium [Moles/Vol] 140 mmol/L 136 - 145 [facility] Work Phone: Comment on above: Ordering Provider: Daniela REBOLLEDO [address] Urea nitrogen [Mass/Vol] 18 mg/dL 6 - 23 UN-Srzsnbn-V [facility] [place] Work Phone: [phone] Comment on above: Ordering Provider: Daniela LUNALAND [address] Otheron 11-21-2020 >60 >60 WK-Tchlkjm-P [facility] [place] Work Phone: [phone] Comment on above: CALCULATIONS OF ASHA MATED GFR ARE PERFORMED USING THE MDRD STUDY EQUATION FOR THE IDMS-TRACEABLE CREATININE METHODS. CLIN CHEM 2007;53:766-72 Ordering Provider: Daniela LUNALAND [address] [phone] WC-Mlrejgb-Z [facility] Work Phone: [phone] JR-Tifsxma-Y [facility] Work Phone: [phone] Sinus rhythm with 1s t degree AV block LP-Uqazalz-L [facility] Work Phone: [phone] [email or web address] ?RetrieveTestByDateTime?P ronifhVL=[id number]&Date=1 03-07-2021&Time=11%3a49%3a 35%3a00&TestType=ECG&Site =12&OutputType=PDF&Ext=PD F IL-Itrijbv-Y [facility] Work Phone: [phone] CM-Bmlmphb-H [facility] Work Phone: [phone] HL-Esbrhna-D [facility] Work Phone: [phone] CA-Dxolypn-K [facility] Work Phone: [phone] XY-Cmwvrcp-U [facility] Work Phone: [phone] QU-Qometlk-P [facility] [place] Work Phone: [phone] JS-Spuirvv-A [facility] Work Phone: [phone] SE-Yfhazpl-Z [facility] Work Phone: [phone] TY-Aicjxdu-N [facility] Work Phone: [phone] AR-Mkkuhdf-X [facility] Work Phone: [phone] QK[facility]ieuy[facility] Work Phone: [phone] KS[facility]Ucoeaei[facility] Work Phone: Abnormal PH[facility]ucjii[facility] Work Phone: Initial Visit (General Surge [...] be. We will plan for surgery at [facility] after the new year. Preadmission testing will [...] visit. Right arm melanoma History of Present Xypksdb95-zvdv-dls woman referred to me by Dr. Nunez [...] history never smoker, , lives in the [place] area Medications include Ocuvite eyedrops, alendronate, amlodipine, carvedilol, [...] Time Vital Sign Value Performing Clinician Facility 01-11-2024 10:39-0500 Body height 152.4 cm [employer] Phone: [facility] 01-11-2024 10:39-0500 Body mass index (BMI) [Ratio] 41.81 kg/m2 [employer] [facility] 01-11-2024 10:39-0500 Body temperature 98.2 [degF] [employer] [facility] 01-11-2024 10:39-0500 Body weight 97.11 kg [employer] [facility] 01-11-2024 10:39-0500 Diastolic blood pressure 78 mm[Hg] [employer] [facility] 01-11-2024 10:39-0500 Heart rate 65 /min [employer] [facility] 01-11-2024 10:39-0500 SaO2% (BldA) [Mass fraction] 92 % [employer] [facility] 01-11-2024 10:39-0500 Systolic blood pressure 130 mm[Hg] [employer] Phone: [facility] 12-23-2023 09:37-0500 Body height 152.4 cm Wild Furlong DO Work Phone: [facility] 12-23-2023 09:37-0500 Body mass index (BMI) [Ratio] 41.46 kg/m2 Wild Furlong DO Work Phone: [facility] 12-23-2023 09:37-0500 Body temperature 98.49 [degF] Wild Furlong DO Work Phone: [facility] 12-23-2023 09:37-0500 Body weight 96.3 kg Wild Furlong DO Work Phone: [facility] 12-23-2023 09:37-0500 Diastolic blood pressure 50 mm[Hg] Wild Furlong DO Work Phone: [facility] 12-23-2023 09:37-0500 Heart rate 65 /min Wild Furlong DO Work Phone: [facility] 12-23-2023 09:37-0500 SaO2% (BldA) [Mass fraction] 95 % Wild Furlong DO Work Phone: [facility] 12-23-2023 09:37-0500 Systolic blood pressure 140 mm[Hg] Wild Furlong DO Work Phone: [facility] 12-15-2023 10:17-0500 Body height 152.4 cm DO Wild Furlong Work Phone: [facility] 12-15-2023 10:17-0500 Body mass index (BMI) [Ratio] 41 kg/m2 DO Wild Furlong Work Phone: [facility] 12-15-2023 10:17-0500 Body temperature 97.3 [degF] DO Wild Furlong Work Phone: [facility] 12-15-2023 10:17-0500 Body weight 95.25 kg DO Wild Furlong Work Phone: [facility] 12-15-2023 10:17-0500 Diastolic blood pressure 73 mm[Hg] DO Wild Furlong Work Phone: [facility] 12-15-2023 10:17-0500 Heart rate 55 /min DO Wild Furlong Work Phone: [facility] 12-15-2023 10:17-0500 Respiratory rate 16 /min DO Wild Furlong Work Phone: [facility] 12-15-2023 10:17-0500 Systolic blood pressure 150 mm[Hg] DO Wild Furlong Work Phone: [facility] 08-11-2023 10:23-0400 Body temperature 97.2 [degF] DO Wild Furlong Work Phone: [facility] 08-11-2023 10:23-0400 Body weight 99.79 kg DO Wild Furlong Work Phone: [facility] 08-11-2023 10:23-0400 Diastolic blood pressure 77 mm[Hg] DO Wild Furlong Work Phone: [facility] 08-11-2023 10:23-0400 Heart rate 56 /min DO Wild Furlong Work Phone: [facility] 08-11-2023 10:23-0400 Respiratory rate 16 /min DO Wild Furlong Work Phone: [facility] 08-11-2023 10:23-0400 SaO2% (BldA) [Mass fraction] 95 % DO Wild Furlong Work Phone: [facility] 08-11-2023 10:23-0400 Systolic blood pressure 155 mm[Hg] DO Wild Furlong Work Phone: [facility] 04-13-2023 09:19-0400 Body temperature 97.9 [degF] DO Wild Furlong Work Phone: [facility] 04-13-2023 09:19-0400 Body weight 99.33 kg DO Wild Furlong Work Phone: [facility] 04-13-2023 09:19-0400 Diastolic blood pressure 67 mm[Hg] DO Wild Furlong Work Phone: [facility] 04-13-2023 09:19-0400 Heart rate 64 /min DO Wild Furlong Work Phone: [facility] 04-13-2023 09:19-0400 Respiratory rate 16 /min DO Wild Furlong Work Phone: [facility] 04-13-2023 09:19-0400 SaO2% (BldA) [Mass fraction] 97 % DO Wild Furlong Work Phone: [facility] 04-13-2023 09:19-0400 Systolic blood pressure 148 mm[Hg] DO Wild Furlong Work Phone: [facility] 09-23-2022 08:25-0500 Body temperature 97.8 [degF] DO Wild Furlong Work Phone: [facility] 09-23-2022 08:25-0500 Body weight 99.9 kg DO Wild Furlong Work Phone: [facility] 09-23-2022 08:25-0500 Diastolic blood pressure 66 mm[Hg] DO Wild Furlong Work Phone: [facility] 09-23-2022 08:25-0500 Heart rate 68 /min DO Wild Furlong Work Phone: [facility] 09-23-2022 08:25-0500 Respiratory rate 16 /min DO Wild Furlong Work Phone: [facility] 09-23-2022 08:25-0500 SaO2% (BldA) [Mass fraction] 94 % DO Wild Furlong Work Phone: [facility] 09-23-2022 08:25-0500 Systolic blood pressure 153 mm[Hg] DO Wild Furlong Work Phone: [facility] 07-01-2022 10:32-0400 Body temperature 97.8 [degF] DO Wild Furlong Work Phone: [facility] 07-01-2022 10:32-0400 Body weight 99.33 kg DO Wild Furlong Work Phone: [facility] 07-01-2022 10:32-0400 Diastolic blood pressure 75 mm[Hg] DO Wild Furlong Work Phone: [facility] 07-01-2022 10:32-0400 Heart rate 55 /min DO Wild Furlong Work Phone: [facility] 07-01-2022 10:32-0400 Respiratory rate 16 /min DO Wild Furlong Work Phone: [facility] 07-01-2022 10:32-0400 SaO2% (BldA) [Mass fraction] 98 % DO Wild Furlong Work Phone: [facility] 07-01-2022 10:32-0400 Systolic blood pressure 154 mm[Hg] DO Wild Furlong Work Phone: [facility] 03-31-2022 13:24-0400 Body temperature 97 [degF] DO Wild Furlong Work Phone: [facility] 03-31-2022 13:24-0400 Body weight 98.42 kg DO Wild Furlong Work Phone: [facility] 03-31-2022 13:24-0400 Diastolic blood pressure 74 mm[Hg] DO Wild Pendletonlong Work Phone: [facility] 03-31-2022 13:24-0400 Heart rate 62 /min DO Wild Pendletonlong Work Phone: [facility] 03-31-2022 13:24-0400 Respiratory rate 16 /min DO Wild Pendletonlong Work Phone: [facility] 03-31-2022 13:24-0400 SaO2% (BldA) [Mass fraction] 96 % DO Wild Pendletonlong Work Phone: [facility] 03-31-2022 13:24-0400 Systolic blood pressure 150 mm[Hg] DO Wild Pendletonlong Work Phone: [facility] 10-01-2020 10:47-0500 Body height 157.99 cm DO Wild Hernandezng Work Phone: [facility] [phone] 00:00-0500 >na< Obdulio Flowers Dept. of Adriano matology Encounters Encounter Date Encounter Type Care Provider Facility Start: 03-20-2024 End: 03-20-[address] [facility] Start: 02-02-2024 Refill Irene Schrader RESPIRATORY TECHNICIAN-SHELTER SUPERVISOR Work Phone: [facility] Start: 01-15-2024 Orders Only Wild recinos DO Work Phone: [facility] Start: 01-11-2024 End: 01-12-2024 ambulatory [facility] Start: 01-11-2024 End: 01-11-[address] 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 ([facility]) Start: 12-30-2023 End: 12-30-2023 [facility]ulatory [facility] Start: 12-28-2023 End: 12-29-2023 ambulatory IRMA CORTEZ Not Available Start: 12-26-2023 End: 12-26-2023 ambulatory IRMA CORTEZ Not Available Start: 12-26-2023 Refill Wild recinos DO Work Phone: [facility] Start: 12-23-2023 End: 12-23-2023 ambulatory TEXARKANA Jailene CENTENO [facility] Start: 12-23-2023 End: 12-23-2023 Office outpatient visit 15 minutes Wild Centeno DO Work Phone: [facility] Comment on above: Acute gout due to re nal impairment involving toe of right foot (Primary Dx); 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 ([facility]) Start: 12-21-2023 End: 12-22-2023 ambulatory IRMA CORTEZ Not Available Start: 12-21-2023 End: 12-21-2023 Admission to same day surgery center Irma Cortez TERRESTRIAL ECOLOGIST [facility] Comment on above: Aftercare following left knee joint replacement surgery (Primary Dx); Acute pain of left knee; Stiffness of left knee; Primary osteoarthritis of left knee Start: 12-21-2023 End: 12-21-2023 ambulatory Irma Cortez TERRESTRIAL ECOLOGIST [facility] Start: 12-21-2023 Bamboo flowsheet Irma Cortez TERRESTRIAL ECOLOGIST [facility] Start: 12-21-2023 Bamboo flowsheet Irma Cortez TERRESTRIAL ECOLOGIST [facility] Start: 12-19-2023 End: 12-19-2023 Admission to same day surgery center Shan Haskins TERRESTRIAL ECOLOGIST [facility] Comment on above: Aftercare following left knee joint replacement surgery (Primary Dx); Acute pain of left knee; Stiffness of left knee; Primary osteoarthritis of left knee Start: 12-19-2023 End: 12-20-2023 ambulatory Shan Haskins TERRESTRIAL ECOLOGIST [facility] Start: 12-19-2023 Bamboo flowsheet Shan Haskins PT A [facility] Start: 12-19-2023 Bamboo flowsheet Shan Haskins PT A [facility] Start: 12-15-2023 End: 12-15-2023 Patient encounter procedure DO Wild Furlong [facility] [place] [facility] Work Phone: Start: 12-15-2023 End: 12-15-2023 ambulatory DO Wild Furlong Work Phone: [facility] Work Phone: Start: 12-15-2023 Registered Recurring DO Wild Furlong [facility] [place] [facility] Work Phone: Start: 12-14-2023 End: 12-14-2023 ambulatory IRMA CORTEZ Not Available Start: 12-14-2023 End: 12-14-2023 Admission to same day surgery center Irma Anthonygabrielakim TERRESTRIAL ECOLOGIST [facility] Comment on above: Aftercare following left knee joint replacement surgery (Primary Dx); Acute pain of left knee; Stiffness of left knee; Primary osteoarthritis of left knee Start: 12-14-2023 End: 12-14-2023 ambulatory Irma Cortez TERRESTRIAL ECOLOGIST [facility] Start: 12-14-2023 Bamboo flowsheet Irma Cortez TERRESTRIAL ECOLOGIST [facility] Start: 12-14-2023 Bamboo flowsheet Irma Cortez TERRESTRIAL ECOLOGIST [facility] Start: 12-13-2023 End: 12-13-2023 ambulatory Wild Furlong Facility:[facility] Start: 12-13-2023 Registered Recurring DO Wild Furlong [facility] [place] [facility] Work Phone: Start: 12-13-2023 End: 12-13-2023 ambulatory DO Wild Furlong Work Phone: [facility] Work Phone: Start: 12-13-2023 End: 12-13-2023 Patient encounter procedure DO Wildlewis Pendletonlong Work Phone: [facility] [place] Work Phone: Start: 2023 End: 2023 ambulatory IRMA KELBLEY Not Available Start: 12-07-2023 End: 12-08-2023 ambulatory IRMA KELBLEY Not Available Start: 12-05-2023 End: 12-05-2023 ambulatory IRMA KELBLEY Not Available Start: 12-02-2023 End: 12-02-2023 ambulatory IRMA BONITA [facility] Start: 12-02-2023 End: 12-02-2023 ambulatory IRMA KELBLEY Not Available Start: 11-30-2023 End: 11-30-2023 ambulatory IRMA KELBLEY Not Available Start: 11-25-2023 End: 11-25-2023 ambulatory IRMA KELBLEY Not Available Start: 11-23-2023 End: 11-23-2023 ambulatory IRMA KELBLEY Not Available Start: 11-21-2023 End: 11-21-2023 ambulatory IRMA KELBLEY Not Available Start: 11-09-2023 End: 11-09-2023 ambulatory Aly Higgins MD Facility:[facility] Start: 11-08-2023 End: 11-08-2023 ambulatory IRMA [...] Start: 10-03-2023 End: 10-04-2023 ambulatory [facility]rawal [facility] Start: 09-26-2023 End: 09-26-2023 ambulatory AMAN YU Not Available Start: 09-08-2023 End: 09-13-2023 ambulatory ALY Agrawal [facility] Start: 08-29-2023 ambulatory [facility] Start: 08-29-2023 Encounter for other preprocedural examination [facility] Start: 08-11-2023 End: 08-11-2023 ambulatory DO Wild Furlong Work Phone: [facility] Work Phone: Start: 08-11-2023 End: 08-11-2023 Registered Recurring DO Wild Furlong Work Phone: [facility] Work Phone: Start: 05-17-2023 End: 05-17-2023 ambulatory [facility] Start: 04-13-2023 End: 04-13-2023 ambulatory DO Wild Furlong Work Phone: [facility] Work Phone: Start: 04-13-2023 End: 04-13-2023 Registered Recurring DO Wild Furlong Work Phone: [facility] Work Phone: Start: 03-03-2023 End: 03-04-2023 ambulatory WILD G FURLONG Facility: Start: 09-23-2022 End: 09-23-2022 ambulatory DO Wild Furlong Work Phone: [facility] Work Phone: Start: 09-23-2022 End: 09-23-2022 Registered Recurring DO Wild Furlong [facility] [place] Start: 08-26-2022 End: 08-27-2022 ambulatory WILD G FURLONG Facility:[facility] Start: 08-11-2022 End: 08-12-2022 ambulatory WILD G FURLONG Facility:[facility] Start: 07-01-2022 End: 07-01-2022 Registered Recurring DO Wild Furlong [facility] [place] Start: 04-29-2022 End: 04-30-2022 ambulatory ROBERT ROLONANI Facility:[facility] Start: 03-31-2022 End: 03-31-2022 Registered Recurring DO Wild Furlong [facility] [place] Start: 12-16-2020 Obdulio Flowers Dep t. of Dermatology Procedures Date Procedure Procedure Detail Performing Clinician Start: 01-11-2024 Adult depression scr eening assessment Wild Furlong DO Work Phone: Start: 12-23-2023 Adult depression scr eening assessment Wild Furlong DO Work Phone: Start: 12-13-2023 Computed tomography of abdomen and pelvis with contrast DO Wild Furlong Work Phone: Start: 12-13-2023 CT of thorax with contrast DO Wild Furlong Work Phone: Start: 12-13-2023 Ultrasonography of limb DO Wild Furlong Work Phone: Start: 09-01-2023 Diabetic retinal eye exam Wild Furlong DO Work Phone: Start: 08-09-2023 Ultrasonography of limb DO Wild Furlong Work Phone: Start: 05-13-2023 Mammography Irma Julio velázquez TERRESTRIAL ECOLOGIST Start: 04-07-2023 Ultrasonography of limb DO Wild Furlong Work Phone: Start: 03-14-2023 Microalbumin [Mass/v olume] in Urine by Test strip [employer] DO Work Phone: Start: 12-21-2022 Computed tomography of abdomen and pelvis with contrast DO [employer] Work Phone: Start: 12-21-2022 CT of thorax with contrast DO [employer] Work Phone: Start: 09-21-2022 Ultrasonography of limb DO [employer] Work Phone: Start: 06-29-2022 Computed tomography of abdomen and pelvis with contrast DO [employer] Work Phone: Start: 06-29-2022 CT of thorax with contrast DO [employer] Work Phone: Start: 03-29-2022 Ultrasonography of limb DO [employer] Work Phone: Start: 12-28-2021 Computed tomography of abdomen and pelvis with contrast DO [employer] Work Phone: Start: 12-28-2021 CT of thorax with contrast DO [employer] Work Phone: Start: 09-24-2021 Ultrasonography of limb DO [employer] Work Phone: Start: 06-19-2021 MRI of head DO [employer] Work Phone: Start: 06-17-2021 Positron emission to mography with computed tomography DO [employer] Work Phone: Start: 03-27-2021 Ultrasound procedure on topographic region DO [employer] Work Phone: Start: 12-16-2020 Obdulio Flowers Cataract surgery Wild Furl elena Ligation of fallopian tube D josette Furlong Repair of musculoten dinous cuff of shoulder Wild Laurantis [employer] Plan of Treatment Date Care Activity Detail Author Start: 03-25-2026 Screening for malign ant neoplasm of colon [facility] Start: 01-10-2025 Adult BMI Screening Adult BMI Screen ing [facility] Start: 01-10-2025 Depression Screening Depression Scre ening [facility] Start: 01-10-2025 Fall Risk Screening Fall Risk Screen ing [facility] Start: 01-10-2025 Tobacco Screening Tobacco Screening [facility] Start: 12-23-2024 Adult BMI Screening Adult BMI Screen ing [facility] Start: 12-23-2024 Depression Screening Depression Scre ening [facility] Start: 12-23-2024 Fall Risk Screening Fall Risk Screen ing [facility] Start: 12-23-2024 Tobacco Screening Tobacco Screening [facility] Start: 09-12-2024 Adult BMI Screening Adult BMI Screen ing [facility] Start: 09-12-2024 Depression Screening Depression Scre ening [facility] Start: 09-12-2024 Tobacco Screening Tobacco Screening [facility] Start: 09-01-2024 Glaucoma screening Diabetic Op hthalmology Exam [facility] Start: 07-16-2024 End: 07-16-2024 Patient encounter procedure 07/16/2024 8:30 AM EDT Office Visit [facility] [address] [place] [address] Wild Centeno, DO [address], [facility] [place] [address] [facility] Start: 07-12-2024 Fall Risk Screening Fall Risk Screen ing [facility] Start: 05-13-2024 Screening for malign ant neoplasm of breast Mammogram [facility] Start: 03-20-2024 End: 03-20-2024 Patient encounter procedure 03/20/2024 11:10 AM EDT Office Visit [facility] [address] [place] [address] [facility] Start: 03-14-2024 Diabetic foot examination Diabetic Foot Exam [facility] Start: 03-14-2024 Urine screening for protein Urine Microalbumin [facility] Start: 03-10-2024 Medicare Annual Well ness Visit Medicare Annual Wellness Visit [facility] Start: 01-11-2024 End: 01-11-2024 Patient encounter procedure 01/11/2024 10:50 AM EST Office Visit [facility] [address] [place] [address] Widl Centeno DO [address], [place] [address] [facility] Start: 12-28-2023 End: 12-28-2023 ambulatory 12/28/2023 2:30 PM EST Treatment [facility] [address] [facility] [address] [place] [address] Irma Cortez, TERRESTRIAL ECOLOGIST [facility] Start: 12-26-2023 End: 12-26-2023 ambulatory 12/26/2023 2:30 PM EST Treatment [facility] [address] [place] [address] [place] [address] Irma Cortez, TERRESTRIAL ECOLOGIST [facility] Start: 12-21-2023 End: 12-21-2023 ambulatory 12/21/2023 2:30 PM EST Treatment [facility] [address] [place] [address] Irma Cortez, TERRESTRIAL ECOLOGIST [facility] Start: 12-19-2023 End: 12-19-2023 ambulatory [facility] Comment on above: Arrived Start: 12-14-2023 End: 12-14-2023 ambulatory 12/14/2023 2:30 PM EST Treatment [facility] [address] [place] [address] Irma Cortez, TERRESTRIAL ECOLOGIST Arrived [facility] Comment on above: Arrived Start: 07-08-2023 COVID-19 Vaccine () COVID-19 Vaccine () [facility] Start: 09-18-2022 DTaP,Tdap and Td Vaccines (2 - Td or Tdap) DTaP,Tdap and Td Vaccines (2 - Td or Tdap) [facility] [employer] [facility] Start: 12-08-2021 [facility] Start: 10-06-2021 [facility] Start: 07-15-2021 End: 07-15-2021 [facility] Start: 07-10-2021 [facility] Start: 06-29-2021 [facility] Start: 03-09-2013 Administration of varicella zoster vaccine Zoster (Shingles) Vaccine (1 of 2) [facility] Start: 1967 Adult BMI Follow Up Plan Adult BMI Follow Up Plan [facility] Start: 1950 Screening for malign ant neoplasm of colon [facility] Comprehensive metabo lic 1999 panel - Serum or Plasma [facility] Work Phone: Comprehensive metabo lic 1999 panel - Serum or Plasma [facility] Comprehensive metabo lic 1999 panel - Serum or Plasma [facility] Comprehensive metabo lic 1999 panel - Serum or Plasma [facility] Comprehensive metabo lic 1999 panel - Serum or Plasma [facility] CT Abdomen and Pelvi s W contrast IV [facility] CT Abdomen and Pelvi s W contrast IV [facility] CT Abdomen and Pelvi s W contrast IV [facility] CT Chest W contrast IV [facility] CT Chest W contrast IV [facility] CT Chest W contrast IV [facility] Lactate dehydrogenas e [Enzymatic activity/volume] in Unspecified specimen [facility] Work Phone: Lactate dehydrogenas e [Enzymatic activity/volume] in Unspecified specimen [facility] US Extremity [facility] Work Phone: Extremity [facility] Extremity [facility] Immunizations Immunization Date Immunization Notes Care Provider Faustina roberson 09-12-2023 Influenza Vaccine, Quadrivalent, Adjuvanted Wild Centeno DO [facility] 10-08-2022 Influenza, High-dose , Quadrivalent Wild Furlong DO Work Phone: [facility] 10-12-2020 influenza, injectabl e, quadrivalent, contains preservative Wild Furlong DO Work Phone: [facility] 09-03-2019 Influenza, injectabl e, [place]in [place] Canine Kidney, quadrivalent with preservative Wild Furlong DO Work Phone: [facility] 10-24-2017 Influenza, injectabl e, Madin [place] Canine Kidney, preservative free, quadrivalent Wild Furlong DO Work Phone: [facility] 10-24-2017 pneumococcal polysaccharide vaccine, 23 valent Wild Furlong DO Work Phone: [facility] 09-05-2016 influenza, seasonal, injectable, preservative free Wild Furlong DO Work Phone: [facility] 08-05-2016 pneumococcal conjuga te vaccine, 13 valent Wild Furlong DO Work Phone: [facility] 09-07-2015 influenza, seasonal, injectable, preservative free Wild Furlong DO Work Phone: [facility] 01-12-2013 varicella virus vaccine Denn is Furlong DO Work Phone: [facility] 01-12-2013 zoster vaccine, unspecified formulation Wild Furlong DO Work Phone: [facility] 09-18-2012 tetanus toxoid, redu bret diphtheria toxoid, and acellular pertussis vaccine, adsorbed Wild Furlong DO Work Phone: [facility] 1950 pneumococcal conjuga te vaccine, 7 valent 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 Payers Date Payer Category Payer Self-pay [id number] 2018 Unknown 2014 Medicare 1960 Medicare [id number] 1959 Unknown [id number] 1949 Unknown [id number] 2.16.84 0.1.300579.3.579.2.593 1949 Unknown [id number] 2.16.84 0.1.723390.3.579.2.593 1949 Unknown [id number] 2.16.84 0.1.944943.3.579.2.593 1949 Unknown [id number] 2.16.84 0.1.171116.3.579.2.593 1949 Unknown [id number] 2.16.8 40.1.585091.3.579.2.173 1949 Unknown [id number] 2.16.8 40.1.900427.3.579.2.173 1949 Unknown [id number] 2.16. 840.1.402754.3.579.2.196 1949 Unknown [id number] 2.16.84 0.1.829893.3.579.2.1259 1949 Unknown [id number] 2.16.84 0.1.147087.3.579.2.1259 1949 Unknown [id number] 2.16.84 0.1.509586.3.579.2.1259 1949 Unknown [id number] 2.16.84 0.1.143911.3.579.2.1259 1949 Unknown [id number] 2.16.84 0.1.392245.3.579.2.1259 1949 Unknown [id number] 2.16.84 0.1.321786.3.579.2.1259 1949 Unknown [id number] 2.16.84 0.1.514048.3.579.2.1259 1949 Unknown [id number] 2.16.84 0.1.980102.3.579.2.1259 1949 Unknown [id number] 2.16.84 0.1.382483.3.579.2.1259 1949 Unknown [id number] 2.16.84 0.1.300638.3.579.2.1259 1949 Unknown [id number] 2.16.84 0.1.432021.3.579.2.1259 1949 Unknown [id number] 2.16.84 0.1.495296.3.579.2.1259 1949 Unknown [id number] 2.16.84 0.1.292261.3.579.2.1259 1949 Unknown [id number] 2.16.840 .1.777075.3.579.2.125 1949 Unknown [id number] 2.16.840 .1.638361.3.579.2.1259 1949 Unknown [id number] 2.16.840 .1.080768.3.579.2.1259 1949 Unknown [id number] 2.16.840 .1.616443.3.579.2.1259 1949 Unknown [id number] 2.16.840 .1.794598.3.579.2.125 1949 Unknown [id number] 2.16.840 .1.646931.3.579.2.125 1949 Unknown [id number] 2.16.840 .1.371095.3.579.2.125 1949 Unknown [id number] 2.16.840 .1.268589.3.579.2.1259 1949 Unknown [id number] 2.16.8 40.1.458498.3.579.2.1286 1949 Unknown [id number] 2.16.8 40.1.685759.3.579.2.1286 1949 Unknown [id number] 2.16.8 40.1.330130.3.579.2.1286 1949 Unknown [id number] 2.16.8 40.1.156415.3.579.2.1286 Unknown [facility] [id number] Unknown [id number] 2.16.8 40.1.048036.3.579.2.531 Unknown [id number] 2.16.8 40.1.106960.3.579.2.531 Social History Date Type Detail Facility Assertion Tobacco smoking consumption unknown (finding) [facility] Work Phone: Start: 12-16-2020 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 Start: 1950 Sex Assigned At Female [facility] Start: 03-31-2022 End: 09-06-2022 Tobacco smoking status NHIS Never smoked tobacco (finding) [facility] Start: 09-06-2022 End: 11-04-2023 Tobacco use and exposure Smokeless tobacco non-user [facility] Start: 11-04-2023 End: 01-11-2024 Alcohol intake Ex-drinker (finding) [facility] Start: 12-18-2020 End: 11-04-2023 History of Social function [facility] Start: 12-18-2020 End: 11-04-2023 Tobacco use panel [facility] Start: 11-04-2023 Alcohol Comment Caffeine: 1-2 cups/day [facility] Start: 1950 Sex Assigned At Not on file [facility] Do you belong to any clubs or organizations such as shinto groups, unions, fraternal or athletic groups, or school groups? Yes [facility] Are you now , , , , never or living with a partner? [facility] How often to you hav e a drink containing alcohol? Never [facility] How many standard dr inks containing alcohol do you have on a typical day? Patient does not drink [facility] Do you feel stress - tense, restless, nervous, or anxious, or unable to sleep at night because your mind is troubled all the time - these days [OSQ] Not at all [employer] [facility] Medical Equipment Procedure Code Equipment Code [...] Elena Plus test strips TEST once daily [id number] Goals Date Patient Goal Desired Activity /State Functional Status Date Assessment Result Facility NEGATED: Highlighted row Functional performance Functional status health issues are not documented Disease [facility] Work Phone: Mental Status Date Assessment Result Facility NEGATED: Highlighted row Cognitive function [Interpretation] Cognitive status health issues are not documented Disease [facility] Work Phone: Clinical Notes 10-01-2020 to 01-11-2024 Wild Centeno DO - 01/11/2024 11:00 AM Malissa Centeno, - 12/23/2023 9:40 AM EST Note Date & Type Note Facility 01-11-2024 History of Present illness Narrative Subjective Patient ID: Tosha Mcnela is a 73 y.o. female. Tosha presents for diabetic recheck. She is taking her medications. She has a dexcom but it isn't working. They are sending 2 new ones. Her toe is feeling better but it still aches. The following portions of the patient's history were reviewed and updated as appropriate: allergies, current medications, past family history, past medical history, past social history, past surgical history, problem list, and medication reconciliation was completed including current medication and post discharge medication. Review of Systems Constitutional: Negative. HENT: Negative. Eyes: Negative. Respiratory: Negative. Cardiovascular: Negative. Gastrointestinal: Negative. Endocrine: Negative. Genitourinary: Negative. Musculoskeletal: Positive for arthralgias. Skin: Negative. Allergic/Immunologic: Negative. Neurological: Negative. Hematological: Negative. Psychiatric/Behavioral: Negative. Objective Physical Exam Constitutional: General: She is not in acute distress. Appearance: She is morbidly obese. She is not ill-appearing. HENT: Head: Normocephalic. Cardiovascular: Rate and Rhythm: Normal rate and regular rhythm. Pulses: Normal pulses. Heart sounds: Normal heart sounds. No murmur heard. Pulmonary: Effort: Pulmonary effort is normal. No respiratory distress. Breath sounds: Normal breath sounds. No wheezing, rhonchi or rales. Musculoskeletal: Right lower leg: No edema. Left lower leg: No edema. Neurological: General: No focal deficit present. Mental Status: She is alert and oriented to person, place, and time. Psychiatric: Mood and Affect: Mood normal. Behavior: Behavior normal. Thought Content: Thought content normal. Judgment: Judgment normal. Assessment/Plan Tosha was seen today for diabetes. Diagnoses and all orders for this visit: Type 2 diabetes mellitus with stage 3a chronic kidney disease, with long-term current use of insulin ([facility]) - Comprehensive metabolic panel; Future - Hemoglobin A1c; Future - Magnesium; Future - Parathyroid Hormone, intact; Future - Phosphorus; Future - Vitamin D 25 hydroxy; Future Check A1c and CKD labs Gout, unspecified cause, unspecified chronicity, unspecified site - Uric acid; Future Check uric acid Mixed hyperlipidemia - Lipid panel; Future jheck lipid panel Morbid obesity ([facility]) She is obese. It is contributing to DM HTN and high cholesterol . She would benefit from wt loss. 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 documented in this encounter [facility] 12-30-2023 Note Patient here for fol low up echo and labs. Potassium was elevated a few weeks ago but she said PCP did not decrease potassium. Madeleine Mesa stopped her amlodipine at last visit due to hypotension. Patient states she restarted it because she didn't know how long she was supposed to be off of it. Continues to deny chest pain, SOB, palpitations, and lightheadedness/syncope. [facility] 12-30-2023 Note [facility] CARDIOLOGY PROGR ESS NOTE HPI: Tosha Mcneal is a 73 y.o. Patient here for follow up HFpEF, hypertension, and hyperlipidemia. She is doing well. She adamantly denies any cardiac complaints or concerns. Patient denies any chest pain or shortness of breath. Patient denies any lower extremity edema, orthopnea, or proximal nocturnal dyspnea. No near-syncope or syncope. No dizziness or lightheadedness. She is back to taking her amlodpine, and she states that her blood pressure has been within normal range at home. She denies any hypotension. She denies any dizziness or lightheadedness. Review of Systems 10 point ROS is performed and is negative unless otherwise specified. Visit Vitals BP 140/58 (BP Location: Right arm, Patient Position: Sitting) Pulse 60 Ht 1.524 m (5') Wt 94.8 kg (209 lb) SpO2 96% BMI 40.82 kg/m??? Smoking Status Never BSA 2 m??? No Known Allergies Medications: Current Outpatient Medications on File Prior to Visit Medication Sig Dispense Refill allopurinol (Zyloprim) 100 mg tablet take 1 tablet by mouth IN THE MORNING ( START after FLARE UP RESOLVES ) amLODIPine (Norvasc) 5 mg tablet Take 1 tablet by mouth in the morning. aspirin 81 mg chewable tablet in the [...] unit/mL (70-30) injection Novolin 70-30 FlexPen U-100 lisinopril 40 mg tablet Take 1 tablet (40 mg) by mouth once daily as directed. 90 tablet 3 magnesium oxide (Mag-Ox) 400 mg tablet Magnesium metFORMIN (Glucophage) 1,000 mg tablet Take 1,000 mg by mouth with breakfast and with evening meal. potassium chloride CR (K-Tab) 20 mEq ER tablet Take 20 mEq by mouth in the morning. rosuvastatin (Crestor) 10 mg tablet rosuvastatin 10 mg tablet take 1 tablet by mouth once daily spironolactone (Aldactone) 25 mg tablet Take 25 mg by mouth in the morning. No current facility-administered medications on file prior [...] the past 12 months Assessment/Plan: Mixed hyperlipidemia Lipid panel reviewed and at target range Continue crestor 10 mg daily Essential hypertension Patient has resumed her amlodipine. She is also on lisinopril 40 mg daily. She states that her blood pressure has been well-controlled at home. She denies any episodes of hypotension. She denies any dizziness or lightheadedness. Continue current medication regimen. I reminded her to check her blood pressure 2 hours after her taking her medications, to maintain a daily blood pressure log. She is to contact cardiology if blood pressure is above or below discuss target range. She voices understanding -Optimize medical management -Aggressive risk factor modification -Plan of care discussed with patient. All questions were answered. Patient voices understanding and is agreeable with current plan. -Patient was educated on red flag symptoms. Strict return precautions were provided. Patient verbalizes understanding -Follow-up in cardiology clinic in 4-6 weeks, or sooner as needed Robert Long MD [facility] 12-23-2023 History of Present illness Narrative Subjective [...] over time. 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 ([facility]) GFR reviewed and is stable at 55. No dosing adjustments required. Other orders - allopurinoL (ZYLOPRIM) 100 mg tablet; Take 1 tablet (100 mg total) by mouth in the morning. Start after flare up resolves. documented in this encounter [facility] 12-23-2023 Evaluation note Diagnosis Acute gout due to renal impairment involving toe of right foot- Primary 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 ([facility]) documented in this encounter [facility]01-26-2024 NoteContinue lasix 20 mg daily, stop norvasc, repeat echocardiogramUnDiley [facility] Center01-26-2024 NoteDOE and BLE edema will order echocardiogram to assess cardiac function, diastolic function and valvular function RTC after echo completedUnDiley Ridge Medical Center01-26-2024 Note Hypertension is controlled and hypotensive despite not taking lisinopril 40 mg the last 2 days. Asked pt to stop norvasc and to hold lisinopril if SBP < 100 and she voiced understandingUnDiley Ridge Medical Center01-26-2024 Note Continue crestor 10 mg dailyUnDiley Ridge Medical Center01-26-2024 Note [facility] CARDIOLOGY PROGRESS NOTE HPI: Tosha [...] lasix 20 mg daily, stop norvasc, repeat echocardiogramL[facility]01-26-2024 NotePatient here for 3 mo [...] pain. All other systems reviewed and are negative.[facility] 08-29-2023 NoteCardiology Clinic Note Subjective [...] mild unilateral left lower (more content not included)...[facility]10-23-2023 NotePatient here for surgery clearance prior to TKA. Doing well from cardiac standpoint, as she denies chest pain, SOB, and palpitations. Her LLE edema is no more than usual she states. Review of Systems Cardiovascular: Positive for leg swelling (LLE, intermittent). Musculoskeletal: Positive for arthritis and joint pain. All other systems reviewed and are negative.[facility] 05-17-2023 NoteCardiology Clinic Note Subjective [...] artery disease Father Heart attack Father HPI Tsoha Mcneal is a 71 y.o. female with [...] about 6 months (around 11/17/2023). Perry Manuel APRN-[facility] Cardiovascular MedicineUnDiley Ridge Medical Center07-11-2023 NotePatient here for 6 mo follow up HFpEF, hypertension, and hyperlipidemia. She had routine labs in February 2023. Denies chest pain and SOB. Doing very well. Review of Systems Cardiovascular: Positive for leg swelling (LLE, intermittent). Musculoskeletal: Positive for arthritis and joint pain. All other systems reviewed and are negative.[facility] 04-13-2023 Progress note Author Rose Ohara [facility] April 13, 2023 5:59pm Note Date/Time April 13, 2023 9:30a m [facility] at [address] [address] Hem/Onc Follow Up Note - OP Signed Patient: Tosha Mcneal MR#: [id number] : 1950 Acct:[id number] Age/Sex: 72 / F Type: REG RCR Copies to: Wild G DO Mohan Centeno MD~ Subjective Date/Time of Service: Date of [...] She is leaving for a cruise to [place] this month. Continue 4 month followup with [...] related toxicities. Now following with dermatology at [facility] with no recurrence on skin exam. Surveillance ultrasound right axilla without recurrence. She will have routing f[place] [address] CAP and [...] proceeded with wide local excision 09/05/2020 at [facility]. Outside review at [facility] showed at least 2.1 cm Breslow depth melanoma with 2 cm negative margins. She was referred to Dr. Cedrick Berger at [facility]. Right axillary sentinel lymph node biopsy [...] liver lesion. Her case was presented at [facility] cutaneous tumor board on 1prior to her metastatic staging. Discussion of referral to medical oncology fordiscussion of immunotherapy. The patient is now returning for medical oncology follow-up after review of all prior pathology and imaging. BRAF status is stillpending. She has healed well. She is a 10-year history of diabetes. She resides in [place]. Today we reviewed immunotherapy counseling for nivolumab. [...] Therapies: 1. Initial wide local excision at [facility] 09/05/[address] Hernando Mccartney 2. Right sentinel lymph node biopsy 11/28/2020 at [facility] by Dr. Cedrick Berger 3. Delay [...] % (Auto) 62.3, Lymph % (Auto) 26.0, [place] % (Auto) 8.6, Eos % (Auto) 2.2, Baso % (Auto) 0.9, Nucleat RBC Rel Count 0.1, Neut # (Auto) 4.3, Lymph # (Auto) 1.8, [place] # (Auto) 0.6, Eos # (Auto) 0.2, [...] Plan - TNM Staging Staging: Stage: pIIIC ([id number]) Melanoma 5 year survival: 69% (1) Melanoma [...] without extracapsular extension. Dr. Cedrick Berger at [facility] surgical oncology group ordered metastatic staging with [...] for coordination of care (as documented) and [id number] counseling of patient and/or family. Dictated By: Rose Ohara MD DD/ [id number] Signed By: <Electronically signed by MD Rose Ohara> 04/13/23 2570 [facility] Work Phone: 1(327) 112-166902-16-2023 Progress note Author Rose Ohara [facility] December 23, 2022 11:01am Note Date/Time December 23, 2022 9:06am [facility] at [address] [address] Hem/Onc Follow Up Note - OP Signed Patient: Tosha Mcneal MR#: [id number] : 1950 Acct:[id number] Age/Sex: 72 / F Type: REG RCR [...] related toxicities. Now following with dermatology at [facility] with no recurrence on skin exam. Surveillance ultrasound right axilla without recurrence. She [place] [address] CAP and [...] now 72-year-old lady referred here by Dr. Hernnado Mccartney. She follows with Dr. Wild Centeno. 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 There was ulceration with tumor infiltrating lymphocytes but no lymphovascular invasion. There was positive margins involved. She was referred to general surgery with Dr. Hernando Mccartney who proceeded with wide local excision 09/05/2020 at [facility]. Outside review at [facility] showed at least 2.1 cm Breslow depth melanoma with 2 cm negative margins. She was referred to Dr. Cedrick Berger at [facility]. Right axillary sentinel lymph node biopsy [...] liver lesion. Her case was presented at [facility] cutaneous tumor board on 1prior to her metastatic staging. Discussion of referral to medical oncology fordiscussion of immunotherapy. The patient is now returning for medical oncology follow-up after review of all prior pathology and imaging. BRAF status is stillpending. She has healed well. She is a 10-year history of diabetes. She resides in [place]. Today we reviewed immunotherapy counseling for nivolumab. [...] Therapies: 1. Initial wide local excision at [facility] 09/05/[address] Hernando Mccartney 2. Right sentinel lymph node biopsy 11/28/2020 at [facility] by Dr. Cedrick Berger 3. Delay [...] % (Auto) 60.2, Lymph % (Auto) 24.8, [place] % (Auto) 11.9, Eos % (Auto) 1.9, Baso % (Auto) 1.2, Nucleat RBC Rel Count 0.2, Neut # (Auto) 4.1, Lymph # (Auto) 1.7, [place] # (Auto) 0.8, Eos # (Auto) 0.1, [...] pelvis. Impression dictated by: Miki Kruse Jr., DPabloOPablo12/21/2022 1:50 PM Assessment and Plan - TNM Staging Staging: Stage: pIIIC ([id number]) Melanoma 5 year survival: 69% (1) Melanoma [...] without extracapsular extension. Dr. Cedrick Berger at [facility] surgical oncology group ordered metastatic staging with [...] follow-up with primary physician. Next follow-up with [place] for [place] chest abdomen pelvis with surveillance [...] for coordination of care (as documented) and [id number] counseling of patient and/or family. Dictated By: Rose Ohara MD DD/ [id number] Signed By: <Electronically signed by MD Rose Ohara> 12/23/22 1104 [facility] Work Phone: 1(587) 613-836811-17-2022 Progress note Author Rose Ohara [facility] September 23, 2022 10:21am Note Date/Time September 23, 2022 8:36am [facility] at [place] [id number] Hem/Onc Follow Up Note - OP Signed Patient: Tosha Mcneal MR#: [id number] : 1950 Acct:[id number] Age/Sex: 71 / F Type: REG RCR [...] related toxicities. Now following with dermatology at [facility] with no recurrence on skin exam. Surveillance [...] proceeded with wide local excision 09/05/2020 at [facility]. Outside review at [facility] showed at least 2.1 cm Breslow depth melanoma with 2 cm negative margins. She was referred to Dr. Cedrick Bergre at [facility]. Right axillary sentinel lymph node biopsy [...] liver lesion. Her case was presented at [facility] cutaneous tumor board on 1prior to her metastatic staging. Discussion of referral to medical oncology fordiscussion of immunotherapy. The patient is now returning for medical oncology follow-up after review of all prior pathology and imaging. BRAF status is stillpending. She has healed well. She is a 10-year history of diabetes. She resides in [facility]. Today we reviewed immunotherapy counseling for nivolumab. [...] Therapies: 1. Initial wide local excision at [facility] 09/05/[address] Hernando Mccartney 2. Right sentinel lymph node biopsy 11/28/2020 at [facility] by Dr. Cedrick Berger 3. Delay [...] cit 4.5 mg-lutein 2.5 mg-zeaxan chew tablet ([facility]) 1 tab PO DAILY eye [...] % (Auto) 65.7, Lymph % (Auto) 21.6, [place] % (Auto) 9.7, Eos % (Auto) 2.0, Baso % (Auto) 1.0, Neut # (Auto) 4.5, Lymph # (Auto) 1.5, [place] # (Auto) 0.7, Eos# (Auto) 0.1, Baso [...] Plan - TNM Staging Staging: Stage: pIIIC ([id number]) Melanoma 5 year survival: 69% (1) Melanoma [...] without extracapsular extension. Dr. Cedrick Berger at [facility] surgical oncology group ordered metastatic staging with [...] for coordination of care (as documented) and gixx-ue-iqlv counseling of patient and/or family. Dictated By: Rose Ohara MD DD/ [id number] Signed By: <Electronically signed by MD Rose Ohara> 09/23/22 1021 [facility] Work Phone: 1([phone]) 795-337108-25-2022 Progress note Author Rose Ohara [facility] July 01, 2022 8:35pm Note Date/Time July 01, 2022 10 :39am [facility] [place] [address] Hem/Onc Follow Up Note - OP Signed Patient: Tosha Mcneal MR#: [id number] : 1950 Acct:[id number] Age/Sex: 71 / F Type: REG RCR Copies to: DO oMhan Haddad MD~ Subjective Date/Time of Service: Date [...] related toxicities. Now following with dermatology at [facility] with no recurrence on skin exam. Surveillance ultrasound right axilla without recurrence. She [place] [address] CAP and [...] proceeded with wide local excision 09/05/2020 at [facility]. Outside review at [facility] showed at least 2.1 cm Breslow depth melanoma with 2 cm negative margins. She was referred to Dr. Cedrick Berger at [facility]. Right axillary sentinel lymph node biopsy [...] liver lesion. Her case was presented at [facility] cutaneous tumor board on 1prior to her metastatic staging. Discussion of referral to medical oncology fordiscussion of immunotherapy. The patient is now returning for medical oncology follow-up after review of all prior pathology and imaging. BRAF status is stillpending. She has healed well. She is a 10-year history of diabetes. She resides in [facility] [place]. Today we reviewed immunotherapy counseling for nivolumab. [...] Therapies: 1. Initial wide local excision at [facility] 09/05/[address] Hernando Mccartney 2. Right sentinel lymph node biopsy 11/28/2020 at [facility] by Dr. Cedrick Berger 3. Delay [...] % (Auto) 66.8, Lymph % (Auto) 18.8, [place] % (Auto) 9.5, Eos % (Auto) 3.7, Baso % (Auto) 1.2, Neut # (Auto) 5.6, Lymph # (Auto) 1.6, [place] # (Auto) 0.8, Eos #(Auto) 0.3, Baso [...] Plan - TNM Staging Staging: Stage: pIIIC ([id number]) Melanoma 5 year survival: 69% (1) Melanoma [...] without extracapsular extension. Dr. Cedrick Berger at [facility] surgical oncology group ordered metastatic staging with [...] for coordination of care (as documented) and cxxs-ad-ahfq counseling of patient and/or family. Dictated By: Rose Ohara MD DD/ 1038 Signed By: <Electronically signed by MD Rose Ohara> 07/01/2220[address] [facility] Work Phone: [phone]) [phone] Progress note Author Rose Ohara [facility] April 01, 2022 1:09pm Note Date/Time March 31, 2022 1:30p m [facility] [place] [id number] Hem/Onc Follow Up Note - OP Signed Patient: Tosha Mcneal MR#: [id number] : 1950 Acct:[id number] Age/Sex: 71 / F Type: REG RCR [...] related toxicities. Now following with dermatology at [facility] with no recurrence on skin exam. Surveillance ultrasound right axilla without recurrence. She [place] [address] CAP and [...] proceeded with wide local excision 09/05/2020 at [facility]. Outside review at [facility] showed at least 2.1 cm Breslow depth melanoma with 2 cm negative margins. She was referred to Dr. Cedrick Berger at [facility]. Right axillary sentinel lymph node biopsy [...] liver lesion. Her case was presented at [facility] cutaneous tumor board on 12/15/2020rior to her metastatic staging. Discussion of referral to medical oncology fordiscussion of immunotherapy. The patient is now returning for medical oncology follow-up after review of all prior pathology and imaging. BRAF status is stillpending. She has healed well. She is a 10-year history of diabetes. She resides in [facility] [place]. Today we reviewed immunotherapy counseling for nivolumab. [...] Therapies: 1. Initial wide local excision at [facility] 09/05/[address] Hernando Mccartney 2. Right sentinel lymph node biopsy 11/28/2020 at [facility] by Dr. Cedrick Berger 3. Delay [...] cit 4.5 mg-lutein 2.5 mg-zeaxan chew tablet ([facility]) 1 tab PO DAILY 04/11/19 [History Confirmed [...] % (Auto) 64.5, Lymph % (Auto) 22.3, [place] % (Auto) 9.5, Eos % (Auto) 2.6, Baso % (Auto) 1.1, Neut # (Auto) 4.8, Lymph # (Auto) 1.7, [place] # (Auto) 0.7, Eos# (Auto) 0.2, Baso [...] study. Impression dictated by: Miki Kruse Jr., D.OPablo03/29/2022 12:30 PM Assessment and Plan - TNM Staging Staging: Stage: pIIIC ([id number]) Melanoma 5 year survival: 69% (1) Melanoma [...] without extracapsular extension. Dr. Cedrick Berger at [facility] surgical oncology group ordered metastatic staging with [...] for coordination of care (as documented) and ayis-hx-jrhr counseling of patient and/or family. Dictated By: Rose Ohara MD DD/ 1330 Signed By: <Electronically signed by MD Rose Ohara> 04/01/[address] [facility] Work Phone: [phone]) 157-651302-23-2022 Progress note Author Rose Ohara [facility] December 30, 2021 3:45pm Note Date/Time December 30, 2021 10:04[facility] at [address] [address] Hem/Onc Follow Up Note - OP Signed Patient: Tosha Mcneal MR#: [id number] : 1950 Acct:[id number] Age/Sex: 71 / F Type: REG RCR [...] related toxicities. Now following with dermatology at [facility] with no recurrence on skin exam. Surveillance ultrasound right axilla without recurrence. She [place] [address] CAP and [...] proceeded with wide local excision 09/05/2020 at [facility]. Outside review at [facility] showed at least 2.1 cm Breslow depth melanoma with 2 cm negative margins. She was referred to Dr. Cedrick Berger at [facility]. Right axillary sentinel lymph node biopsy [...] liver lesion. Her case was presented at [facility] cutaneous tumor board on 1prior to her metastatic staging. Discussion of referral to medical oncology fordiscussion of immunotherapy. The patient is now returning for medical oncology follow-up after review of all prior pathology and imaging. BRAF status is stillpending. She has healed well. She is a 10-year history of diabetes. She resides in [facility] [place]. Today we reviewed immunotherapy counseling for nivolumab. [...] Therapies: 1. Initial wide local excision at [facility] 09/05/[address] Hernando Mccartney 2. Right sentinel lymph node biopsy 11/28/2020 at [facility] by Dr. Cedrick Berger 3. Delay [...] cit 4.5 mg-lutein 2.5 mg-zeaxan chew tablet ([facility]) 1 tab PO DAILY 04/11/19 [History Confirmed [...] Plan - TNM Staging Staging: Stage: pIIIC ([id number]) Melanoma 5 year survival: 69% (1) Melanoma [...] without extracapsular extension. Dr. Cedrick Berger at [facility] surgical oncology group ordered metastatic staging with [...] for coordination of care (as documented) and vpdk-mj-fmmf counseling of patient and/or family. Dictated By: Rose Ohara MD DD/ 1004 Signed By: <Electronically signed by MD Rose Ohara> 12/30/[address] [facility] Work Phone: [phone]) 439-231111-25-2021 Progress note Author Rose Ohara [facility] October 01, 2021 12:50pm Note Date/Time September 30, 2021 10:46am [facility] at [place] [id number] Hem/Onc Follow Up Note - OP Signed with Addenda Patient: Tosha Mcneal MR#: [id number] : 1950 Acct:[id number] Age/Sex: 70 / F Type: REG RCR Copies to: DO Bj Haddad MD Richard M Wiecek, MD~ ADDENDUM1 Correction 09/30/2021: Second line should note Weaver Dobby Loom is Dr. Bj Robison in [place]--last skin exam 09/29/2021. Addendum Dictated By: MD [...] related toxicities. Now following with dermatology at [facility] with no recurrence on skin exam. Surveillance [...] proceeded with wide local excision 09/05/2020 at [facility]. Outside review at [facility] showed at least 2.1 cm Breslow depth melanoma with 2 cm negative margins. She was referred to Dr. Cedrick Berger at [facility]. Right axillary sentinel lymph node biopsy [...] liver lesion. Her case was presented at [facility] cutaneous tumor board on 12/15/2020rior to her metastatic staging. Discussion of referral to medical oncology fordiscussion of immunotherapy. The patient is now returning for medical oncology follow-up after review of all prior pathology and imaging. BRAF status is stillpending. She has healed well. She is a 10-year history of diabetes. She resides in [facility] [place]. Today we reviewed immunotherapy counseling for nivolumab. [...] Therapies: 1. Initial wide local excision at [facility] 09/05/[address] Hernando Mccartney 2. Right sentinel lymph node biopsy 11/28/2020 at [facility] by Dr. Cedrick Berger 3. Delay [...] cit 4.5 mg-lutein 2.5 mg-zeaxan chew tablet ([facility]) 1 tab PO DAILY 04/11/19 [History Confirmed [...] Plan - TNM Staging Staging: Stage: pIIIC ([id number]) Melanoma 5 year survival: 69% (1) Melanoma [...] without extracapsular extension. Dr. Cedrick Berger at [facility] surgical oncology group ordered metastatic staging with [...] for coordination of care (as documented) and hgnn-nt-pozg counseling of patient and/or family. Dictated By: Rose hOara MD DD/ 1046 Signed By: <Electronically signed by MD Rose Ohara> 09/30/216 [facility] Work Phone: 1([phone]) 816-337308-23-2021 Progress note Author Rose Ohara [facility] June 29, 2021 6:03pm Note Date/Time June 29, 2021 10 :48am [facility] [place] [id number] Hem/Onc Follow Up Note - OP Signed Patient: Tosha Mcneal MR#: [id number] : 1950 Acct:[id number] Age/Sex: 70 / F Type: REG RCR [...] proceeded with wide local excision 09/05/2020 at [facility]. Outside review at [facility] showed at least 2.1 cm Breslow depth melanoma with 2 cm negative margins. She was referred to Dr. Cedrick Berger at [facility]. Right axillary sentinel lymph node biopsy [...] liver lesion. Her case was presented at [facility] cutaneous tumor board on 1prior to her metastatic staging. Discussion of referral to medical oncology fordiscussion of immunotherapy. The patient is now returning for medical oncology follow-up after review of all prior pathology and imaging. BRAF status is stillpending. She has healed well. She is a 10-year history of diabetes. She resides in [facility] [place]. Today we reviewed immunotherapy counseling for nivolumab. [...] Therapies: 1. Initial wide local excision at [facility] 09/05/[address] Hernando Mccartney 2. Right sentinel lymph node biopsy 11/28/2020 at [facility] by Dr. Cedrick Berger 3. Delay [...] cit 4.5 mg-lutein 2.5 mg-zeaxan chew tablet ([facility]) 1 tab PO DAILY 04/11/19 [History Confirmed [...] Plan - TNM Staging Staging: Stage: pIIIC ([id number]) Melanoma 5 year survival: 69% (1) Melanoma [...] without extracapsular extension. Dr. Cedrick Berger at [facility] surgical oncology group ordered metastatic staging with [...] for coordination of care (as documented) and zztm-mo-cryp counseling of patient and/or family. Dictated By: Rose Ohara MD DD/ 1048 Signed By: <Electronically signed by MD Rose Ohara> 06/29/[address] [facility] Work Phone: [phone]) [phone] Progress note Author Rose Ohara [facility] March 23, 2021 9:29am Note Date/Time March 23, 2021 9:09a m [facility] [place] [id number] Hem/Onc Follow Up Note - OP Signed Patient: Tosha Mcneal MR#: [id number] : 1950 Acct:[id number] Age/Sex: 70 / F Type: REG RCR Copies to: Wild Centeno,MD Mohan Dukes MD~ Subjective Date/Time of Service: Date of [...] proceeded with wide local excision 09/05/2020 at [facility]. Outside review at [facility] showed at least 2.1 cm Breslow depth melanoma with 2 cm negative margins. She was referred to Dr. Cedrick Berger at [facility]. Right axillary sentinel lymph node biopsy [...] liver lesion. Her case was presented at [facility] cutaneous tumor board on 12/15/2020rior to her metastatic staging. Discussion of referral to medical oncology fordiscussion of immunotherapy. The patient is now returning for medical oncology follow-up after review of all prior pathology and imaging. BRAF status is stillpending. She has healed well. She is a 10-year history of diabetes. She resides in [facility] [place]. Today we reviewed immunotherapy counseling for nivolumab. [...] Therapies: 1. Initial wide local excision at [facility] 09/05/[address] Hernando Mccartney 2. Right sentinel lymph node biopsy 11/28/2020 at [facility] by Dr. Cedrick Berger 3. Delay [...] % (Auto) 69.8, Lymph % (Auto) 16.9, [place] % (Auto) 9.7, Eos % (Auto) 2.4, Baso % (Auto) 1.2, Neut # (Auto) 5.1, Lymph # (Auto) 1.2, [place] # (Auto) 0.7, Eos # (Auto) 0.2, [...] Plan - TNM Staging Staging: Stage: pIIIC ([id number]) Melanoma 5 year survival: 69% (1) Melanoma [...] without extracapsular extension. Dr. Cedrick Berger at [facility] surgical oncology group ordered metastatic staging with [...] for coordination of care (as documented) and rlpu-yo-zrbh counseling of patient and/or family. Dictated By: Rose Ohara MD DD/ Signed By: <Electronically signed by MD Rose Ohara> 03/23/21 0929 [facility] Work Phone: 1([phone]) 498-899404-05-2021 Progress note Author Rose Ohara [facility] February 09, 2021 1:28pm Note Date/Time February 09, 2021 8:07 am [facility] [place] [address] Hem/Onc Follow Up Note - OP Signed Patient: Tosha Mcneal MR#: [id number] : 1950 Acct:[id number] Age/Sex: 70 / F Type: REG RCR [...] proceeded with wide local excision 09/05/2020 at [facility]. Outside review at [facility] showed at least 2.1 cm Breslow depth melanoma with 2 cm negative margins. She was referred to Dr. Cedrick Berger at [facility]. Right axillary sentinel lymph node biopsy [...] liver lesion. Her case was presented at [facility] cutaneous tumor board on 12/15/2020rior to her metastatic staging. Discussion of referral to medical oncology fordiscussion of immunotherapy. The patient is now returning for medical oncology follow-up after review of all prior pathology and imaging. BRAF status is stillpending. She has healed well. She is a 10-year history of diabetes. She resides in [facility] [place]. Today we reviewed immunotherapy counseling for nivolumab. [...] Therapies: 1. Initial wide local excision at [facility] 09/05/[address] Hernando Mccartney 2. Right sentinel lymph node biopsy 11/28/2020 at [facility] by Dr. Cedrick Berger 3. Delay [...] Plan - TNM Staging Staging: Stage: pIIIC ([id number]) Melanoma 5 year survival: 69% (1) Melanoma [...] without extracapsular extension. Dr. Cedrick Berger at [facility] surgical oncology group ordered metastatic staging with [...] for coordination of care (as documented) and ntee-lq-objx counseling of patient and/or family. Dictated By: Rose Ohara MD DD/ 6 Signed By: <Electronically signed by MD Rose Ohara> 02/09/21 3698 [facility] Work Phone: [phone]) 117-267511-25-2020 Consult note Author Bang Nunez [facility] October 01, 2020 11:21am Note Date/Time October 01, 2020 11:10am [facility] [place] [address] Hem/Onc Consult Note - OP Signed Patient: Tosha Mcneal MR#: [id number] : 1950 Acct:[id number] Age/Sex: 69 / F Type: REG RCR [...] of diabetes. She resides in [facility]. [facility] - Medical History Medical History: Medical History [...] refer her to Dr. Cedrick Berger at [facility] surgical oncology group for his opinion. I will see her back at a later date. - Time with Patient Coordination of Care & Counseling Time: Greater than 50% of time spent with patient was for coordination of care (as documented) and lrnc-dw-xjqr counseling of patient and/or family. Dictated By: Bang Nunez MD DD/ 1108 Signed By: <Electronically signed by MD Bang Nunez> 10/01/20 1121 [facility] Work Phone: Evaluation note* Diagnosis Onset Date Resolution Status Diabetes mellitus chronic Encounter for antineoplastic immunotherapy chronic Enlarged pituitary gland chr onic Melanoma chronic [facility] Work Phone: Evaluation note* Diagnosis Onset Date Resolution Status Enlarged pituitary gland acu te Diabetes mellitus chronic Encounter for antineoplastic immunotherapy chronic Melanoma chronic [facility] Work Phone: Evaluation note* Diagnosis Onset Date Resolution Status Enlarged pituitary gland acu te Diabetes mellitus chronic Encounter for antineoplastic immunotherapy chronic Melanoma chronic Enlarged pituitary gland acu te Malignant melanoma of right upper limb, including shoulder acute Diabetes mellitus chronic [facility] Work Phone: Evaluation note* Diagnosis Aftercare following left knee joint replacement surgery- Primary Acute pain of left knee Stiffness of left knee Primary osteoarthritis of left knee documented in this encounter [facility] HealthcareEvaluation note* Diagnosis Aftercare following left knee joint replacement surgery- Primary Acute pain of left knee Stiffness of left knee Primary osteoarthritis of left knee documented in this encounter [facility] HealthcareEvaluation note* Diagnosis Aftercare following left knee joint replacement surgery- Primary Acute pain of left knee Stiffness of left knee Primary osteoarthritis of left knee documented in this encounter [facility] HealthcareEvaluation note* Diagnosis Type 2 diabetes mellitus with stage 3a chronic kidney disease, with long-term current use of insulin ([facility])- Primary Gout, unspecified cause, unspecified chronicity, unspecified site Mixed hyperlipidemia Morbid obesity ([facility]) Morbid obesity 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 ([facility]) [facility]ed in this encounter [facility] filedocumented in this encounter [facility] filedocumented in this encounter [facility] filedocumented in this encounter [facility] Author Rose Ohara [facility] July 01, 2022 8:35pm Note Date/Time July 01, 2022 10 :39am [facility] [place] [address] Hem/Onc Follow Up Note - OP Signed Patient: Tosha Mcneal MR#: [id number] : 1950 Acct:[id number] Age/Sex: 71 / F Type: REG RCR Copies to: DO Mhoan Haddad MD~ Subjective Date/Time of Service: Date [...] related toxicities. Now following with dermatology at [facility] with no recurrence on skin exam. Surveillance ultrasound right axilla without recurrence. [place] [address] CAP and [...] proceeded with wide local excision 09/05/2020 at [facility]. Outside review at [facility] showed at least 2.1 cm Breslow depth melanoma with 2 cm negative margins. She was referred to Dr. Cedrick Berger at [facility]. Right axillary sentinel lymph node biopsy [...] liver lesion. Her case was presented at [facility] cutaneous tumor board on 12/15/2020rior to her metastatic staging. Discussion of referral to medical oncology fordiscussion of immunotherapy. The patient is now returning for medical oncology follow-up after review of all prior pathology and imaging. BRAF status is stillpending. She has healed well. She is a 10-year history of diabetes. She resides in [facility]. Today we reviewed immunotherapy counseling for nivolumab. [...] Therapies: 1. Initial wide local excision at [facility] 09/05/[address] Hernando Mccartney 2. Right sentinel lymph node biopsy 11/28/2020 at [facility] by Dr. Cedrick Berger 3. Delay [...] % (Auto) 66.8, Lymph % (Auto) 18.8, [place] % (Auto) 9.5, Eos % (Auto) 3.7, Baso % (Auto) 1.2, Neut # (Auto) 5.6, Lymph # (Auto) 1.6, [place] # (Auto) 0.8, Eos #(Auto) 0.3, Baso [...] Plan - TNM Staging Staging: Stage: pIIIC ([id number]) Melanoma 5 year survival: 69% (1) Melanoma [...] without extracapsular extension. Dr. Cedrick Berger at [facility] surgical oncology group ordered metastatic staging with [...] for coordination of care (as documented) and kaxs-wb-nfla counseling of patient and/or family. Dictated By: Rose Ohara MD DD/ 1038 Signed By: <Electronically signed by MD Rose Ohara> 07/01/2220[address] [facility] Work Phone: Progress note Author Rose Ohara [facility] September 23, 2022 10:21am Note Date/Time September 23, 2022 8:36am [facility] [place] [id number] Hem/Onc Follow Up Note - OP Signed Patient: Tosha Mcneal MR#: [id number] : 1950 Acct:[id number] Age/Sex: 71 / F Type: REG RCR [...] related toxicities. Now following with dermatology at [facility] with no recurrence on skin exam. Surveillance ultrasound right axilla without recurrence. She will have routing f/u with [place] in [address] CAP and [...] proceeded with wide local excision 09/05/2020 at [facility]. Outside review at [facility] showed at least 2.1 cm Breslow depth melanoma with 2 cm negative margins. She was referred to Dr. Cedrick Berger at [facility]. Right axillary sentinel lymph node biopsy [...] liver lesion. Her case was presented at [facility] cutaneous tumor board on 1prior to her metastatic staging. Discussion of referral to medical oncology fordiscussion of immunotherapy. The patient is now returning for medical oncology follow-up after review of all prior pathology and imaging. BRAF status is stillpending. She has healed well. She is a 10-year history of diabetes. She resides in [place]. Today we reviewed immunotherapy counseling for nivolumab. [...] Therapies: 1. Initial wide local excision at [facility] 09/05/[address] Hernando Mccartney 2. Right sentinel lymph node biopsy 11/28/2020 at [facility] by Dr. Cedrick Berger 3. Delay [...] History Surgical History: Surgical History (Last Reviewed 11/17/22 @ 10:17 by Rose Ohara MD) H/O [...] % (Auto) 65.7, Lymph % (Auto) 21.6, [place] % (Auto) 9.7, Eos % (Auto) 2.0, Baso % (Auto) 1.0, Neut # (Auto) 4.5, Lymph # (Auto) 1.5, [place] # (Auto) 0.7, Eos# (Auto) 0.1, Baso [...] Plan - TNM Staging Staging: Stage: pIIIC ([id number]) Melanoma 5 year survival: 69% (1) Melanoma [...] without extracapsular extension. Dr. Cedrick Berger at [facility] surgical oncology group ordered metastatic staging with [...] for coordination of care (as documented) and [id number] counseling of patient and/or family. Dictated By: Rose Ohara MD DD/ [id number] Signed By: <Electronically signed by MD Rose Ohara> 09/23/[address] [facility] Work Phone: Progress note Author Rose Ohara [facility] April 13, 2023 5:59pm Note Date/Time April 13, 2023 9:30a m [facility] at [place] [id number] Hem/Onc Follow Up Note - OP Signed Patient: Tosha Mcneal MR#: [id number] : 1950 Acct:[id number] Age/Sex: 72 / F Type: REG RCR [...] She is leaving for a cruise to [place] this month. Continue 4 month followup with [...] related toxicities. Now following with dermatology at [facility] with no recurrence on skin exam. Surveillance [...] proceeded with wide local excision 09/05/2020 at [facility]. Outside review at [facility] showed at least 2.1 cm Breslow depth melanoma with 2 cm negative margins. She was referred to Dr. Cedrick Berger at [facility]. Right axillary sentinel lymph node biopsy [...] liver lesion. Her case was presented at [facility] cutaneous tumor board on 12/15/2020rior to her metastatic staging. Discussion of referral to medical oncology fordiscussion of immunotherapy. The patient is now returning for medical oncology follow-up after review of all prior pathology and imaging. BRAF status is stillpending. She has healed well. She is a 10-year history of diabetes. She resides in [place]. Today we reviewed immunotherapy counseling for nivolumab. [...] Therapies: 1. Initial wide local excision at [facility] 09/05/[address] Hernando Mccartney 2. Right sentinel lymph node biopsy 11/28/2020 at [facility] by Dr. Cedrick Berger 3. Delay [...] Negative for environmental allergies and food allergies. [facility] - History Attestation statement: The following information [...] % (Auto) 62.3, Lymph % (Auto) 26.0, [place] % (Auto) 8.6, Eos % (Auto) 2.2, Baso % (Auto) 0.9, Nucleat RBC Rel Count 0.1, Neut # (Auto) 4.3, Lymph # (Auto) 1.8, [place] # (Auto) 0.6, Eos # (Auto) 0.2, [...] Plan - TNM Staging Staging: Stage: pIIIC ([id number]) Melanoma 5 year survival: 69% (1) Melanoma [...] without extracapsular extension. Dr. Cedrick Berger at [facility] surgical oncology group ordered metastatic staging with [...] imaging noted above, and labs after completing immunotherapyJanuary 2022. (2) Enlarged pituitary gland Borderline enlargement of [...] for coordination of care (as documented) and [id number] counseling of patient and/or family. Dictated By: Rose Ohara MD DD/ [id number] Signed By: <Electronically signed by MD Rose Ohara> 04/13/23 1752 [facility] Work Phone: Summary Purpose Family History No Family History Records Found Relationship Condition Age at Onset Recorded Date/T gianfranco Not Specified Cerebrovascular accident (CVA) Unknown father Leukemia Unknown Advance Directives No Advanced Directives Records Found Advance Directive Response Recorded Date/ Time Advance Directives No April 11 7:55am Advance Directive Response Recorded Date/ Time Advance Directives No April 11 6:55am Procedure Findings Note PROCEDURE DETAILS Postoperat nitesh Diagnosis: right arm melanoma Surgeon: Cedrick Berger Resident/Fellow/Other Supervisor Cured Meats: Ramiro Bhat Procedure: 1. RIGHT AXILLARY SENTINEL [...] section and content) DATE CREATED AUTHOR 10/24/2020 [employer] DATE CREATED AUTHOR AUTHOR'S ORGANIZ ATION 12/14/2020 [facility] DATE CREATED AUTHOR AUTHOR'S ORGANIZ ATION 10/07/2021 [facility] DATE CREATED AUTHOR AUTHOR'S ORGANIZ ATION 04/09/2022 [facility] DATE CREATED AUTHOR AUTHOR'S ORGANIZ ATION 03/07/2023 [facility] DATE CREATED AUTHOR AUTHOR'S ORGANIZ ATION 10/12/[address] [facility] DATE CREATED AUTHOR AUTHOR'S ORGANIZ ATION 11/10/2023 [facility] DATE CREATED AUTHOR AUTHOR'S ORGANIZ ATION 12/22/2023 [facility] DATE CREATED AUTHOR AUTHOR'S ORGANIZ ATION 01/05/2024 [facility] DATE CREATED AUTHOR AUTHOR'S ORGANIZ ATION 01/07/2024 [facility] DATE CREATED AUTHOR AUTHOR'S ORGANIZ ATION 01/12/2024 [facility] DATE CREATED AUTHOR AUTHOR'S ORGANIZ ATION 03/22/2024 [facility] Care Teams (unrecognized sec tion and content) [...] December 15, 2023 End: December 15, 2023 Catering Chef Relationship Specialty Start Date End Date Unallocated, [facility] Provider [address] [place] [address] PCP - General Family Medicine 12/06/23 Catering Chef Relationship Specialty Start Date End Date Unallocated, [facility] Provider [address] [place] [address] PCP - General Family Medicine 12/06/23 Catering Chef Relationship Specialty Start Date End Date Unallocated, [facility] Provider [address] [place] [address] PCP - General Family Medicine 12/06/23 Catering Chef Relationship Specialty Start Date End Date Unallocated, [facility] Provider [address] [place] [address] PCP - General Family Medicine 12/06/23 Catering Chef Relationship Specialty Start Date End Date Unallocated, [facility] Provider [address] [place] [address] PCP - General Family Medicine 12/06/23 Catering Chef Relationship Specialty Start Date End Date Unallocated, [facility] Provider [address] [place] [address] PCP - General Family Medicine 12/06/23 Catering Chef Relationship Specialty Start Date End Date Wild Centeno DO [address] [place] [address] PCP - General Family Medicine 11/30/17 Catering Chef Relationship Specialty Start Date End Date Wild Centeno DO [address] [place] [address] PCP - General Family Medicine 11/30/17 Catering Chef Relationship Specialty Start Date End Date Wild Centeno DO [address] [place] [address] PCP - General Family Medicine 11/30/17 Catering Chef Relationship Specialty Start Date End Date Wild Centeno DO [address] [place] [address] PCP - General Family Medicine 11/30/17 Catering Chef Relationship Specialty Start Date End Date Wild Centeno DO [address] [place] [address] PCP - General Family Medicine 11/30/17 Goals (unrecognized section and content) [...] this encounterNot on filedocumented as of this encounterNot on filedocumented as of this encounterNot on filedocumented as of this encounterNot on filedocumented as of this encounter Reason for Visit (unrecogniz ed section and content) Specialty Diagnoses / Procedures Referred By Pete jordan Referred To Contact Physical Therapy Diagnoses S/P total knee replacement using cement, left Procedures IA MANUAL THERAPY TQS 1/> REGIONS EACH 15 MINUTES PHYS/OCC THERAPY SS IA THERAPEUTIC PX 1/> AREAS EACH 15 MIN EXERCISES IA THER PX 1/> AREAS EACH 15 MIN NEUROMUSC [facility] Aly Higgins MD [address] [place] [address] Aman Yu, PT 112 [facility] [address] [place] [address] Referral ID Status Reason Start Date Expiration Date Visits Re quested Visits Authorized [id number] Closed 11/07/2023 10/19/2024 1 10 Referral ID Status Reason Start Date Expiration Date V isits Requested Visits Authorized [id number] Authorized 12/19/2023 10/02/2025 28 28 Reason Comments gout in big toe Reason Comments Med Refill Reason Comments Diabetes FOR RECORDS PERTAINING TO PATIENTS WHO ARE [...] BE BASED ON THE PRIMARY CLINICAL RECORDS. [facility]. provides no warranty or guarantee of the accuracy or completeness of information in this document.
[2024-03-23 10:50] LABS: Anion Gap 16.6; BUN Creatinine Ratio 35.5; Calcium 9.7 mg/dL (8.5-10.1); Carbon Dioxide 25.6 mmol/L (21.0-32.0); Chloride 105 mmol/L (98-107); Estimated GFR (African America 45 (>=60); Estimated GFR (Non-African Ame 37 (>=60); Glucose 200 mg/dL (74-106); Potassium 5.2 mmol/L (3.5-5.1); Sodium 142 mmol/L (136-145)
== END 2024-03-23 09:59 | disposition home or self-care (01) ==
LOC: LAB 09:59
PROVIDERS: PCP Family Medicine; Visit Provider Internal Medicine Cardiovascular Disease
DX: I11.9 Hypertensive heart disease without heart failure (principal)
CPT/HCPCS: 36415; 80048

== ENCOUNTER 2024-04-03 11:00 | Outpatient (OUT) | payer MEDICARE, OTHER, SELFPAY ==
[2024-04-03 11:29] LABS: Anion Gap 15.4; BUN Creatinine Ratio 27.2; Calcium 9.5 mg/dL (8.5-10.1); Carbon Dioxide 24.2 mmol/L (21.0-32.0); Chloride 106 mmol/L (98-107); Estimated GFR (African America 46 (>=60); Estimated GFR (Non-African Ame 38 (>=60); Glucose 185 mg/dL (74-106); Potassium 5.6 mmol/L (3.5-5.1); Sodium 140 mmol/L (136-145)
== END 2024-04-03 11:01 | disposition home or self-care (01) ==
LOC: LAB 11:00
PROVIDERS: PCP Family Medicine; Visit Provider Internal Medicine Cardiovascular Disease
DX: I11.9 Hypertensive heart disease without heart failure (principal)
CPT/HCPCS: 36415; 80048

== ENCOUNTER 2024-04-09 09:16 | Outpatient (OUT) | payer MEDICARE, OTHER, SELFPAY ==
[2024-04-09 10:32] LABS: Anion Gap 17.1; BUN Creatinine Ratio 39.2; Calcium 9.6 mg/dL (8.5-10.1); Carbon Dioxide 24.5 mmol/L (21.0-32.0); Chloride 104 mmol/L (98-107); Estimated GFR (African America 42 (>=60); Estimated GFR (Non-African Ame 34 (>=60); Glucose 299 mg/dL (74-106); Potassium 5.6 mmol/L (3.5-5.1); Sodium 140 mmol/L (136-145)
== END 2024-04-09 09:17 | disposition home or self-care (01) ==
PROVIDERS: PCP Family Medicine; Visit Provider Internal Medicine Cardiovascular Disease
DX: E87.5 Hyperkalemia (principal)
CPT/HCPCS: 36415; 80048

== ENCOUNTER 2024-04-17 07:46 | Outpatient (OUT) | payer MEDICARE, OTHER, SELFPAY ==
--- NOTE | 2024-04-17 08:09 | CA_ITS ---
Patient Name: TANIYA MCNEAL MR#: [id number] : 1950 Exam Date: 04/17/2024 Ordering Doctor: ROBERT LONG M.D. ECHOCARDIOGRAM REPORT PROCEDURE: CA ECHO DOPPLER COMPLETE INDICATIONS: Dyspnea, heart failure COMPARISON: None. DESCRIPTION: COMPLETE ECHOCARDIOGRAM Real-time transthoracic echocardiography with 2D, M-mode, spectral and color flow Doppler performed. QUALITY: Technical quality was good. LEFT VENTRICLE: Normal chamber size. Mild concentric left ventricular hypertrophy. LV EF: Global left ventricular systolic function is hyperdynamic. Calculated left ventricular ejection fraction is 67%. No segmental wall motion abnormalities. DIASTOLIC: Normal diastolic function. ATRIAL SEPTUM: Inadequately seen. LEFT ATRIUM: Normal chamber size. RIGHT ATRIUM: Normal chamber size. RIGHT VENTRICLE:Normal chamber size. Normal right ventricular systolic function. TRICUSPID VALVE: Normal mobility and thickness. No stenosis with trivial regurgitation. No evidence of pulmonary hypertension. RVSP 17mmHg MITRAL VALVE: Normal mobility and thickness. No evidence of mitral valve stenosis. There is no mitral annular calcification. Trivial mitral regurgitation. AORTIC VALVE: Normal trileaflet appearance. Mildly calcified aortic valve. No aortic valve stenosis. No aortic regurgitation. AORTIC ROOT: In appearance and diameter. PULMONIC VALVE: Normal thickness and mobility. No stenosis. Trivial regurgitation. PERICARDIUM: Anterior free space; trivial effusion versus fat pad. IVC: Collapses with inspirations. CONCLUSION: 1. Global left ventricular systolic function is hyperdynamic; visually estimated ejection fraction is 65 to 70% 2. Normal right ventricular size and systolic function 3. Mildly increased left ventricular wall thickness 4. No significant valvular abnormalities 5. Anterior free space; trivial effusion versus fat pad Adult Echocardiography Procedure Report Left Ventricle LVEDD (3.7 - 5.6 cm): 4.79 cm LVESD (2.2 - 4.0 cm): 3.32 cm LVIVS thickness (0.6 - 1.2 cm): 1.30 cm LVPW thickness (0.5 - 1.0 cm): 1.32 cm e': 0.08 m/s E - e': 8.28 LVOT Max Gradient: 1.92 mm[Hg] LVOT Area (cm2): 0.69 m/s Peak Velocity (LVOT): 0.69 m/s Mean Velocity (LVOT): 0.53 m/s LVOT Diameter 1.84 cm Left Ventricular Ejection Fraction: 67.22 % Left Atrium LA Volume Index (2D A2C): 30.09 ml/m2 Left Atrium Systolic Dimension: 4.02 cm Mitral Valve MV E to A Ratio: 1.07 Mitral Valve A-Wave Peak Velocity: 0.60 m/s Mitral Valve E-Wave Peak Velocity: 0.64 m/s Right Ventricle RV Internal Diastolic Dimension: 3.71 cm Aorta AO Root Diam: 2.75 cm Ascending Ao Diam: 2.91 cm Aortic Valve AoV Area (Peak Jeromy): 1.23 cm2, 1.23 cm2 AoV Area (VTI): 1.33 cm2, 1.33 cm2 Peak Velocity(Antegrade Flow): 1.50 m/s Peak Gradient(Antegrade Flow): 8.97 mm[Hg] Mean Velocity(Antegrade Flow): 1.01 m/s Mean Gradient(Antegrade Flow): 4.74 mm[Hg] Velocity Time Integral: 36.88 cm Tricuspid Valve Peak Velocity (Regurgitant Flow): 1.50 m/s, 1.85 m/s Pulmonic Valve Peak Velocity: 1.15 m/s Peak Gradient: 4.73 mm[Hg], 5.78 mm[Hg] Right Atrium Right Atrium Systolic Pressure: 44.37 ml, 44.37 ml Dictated by: Edel Negrete M.D. on 04/17/2024 at 13:26 Approved by: Edel Negrete M.D. on 04/17/2024 at 13:31
== END 2024-04-17 07:47 | disposition home or self-care (01) ==
LOC: CARD 07:48
PROVIDERS: PCP Family Medicine; Visit Provider Internal Medicine Cardiovascular Disease
DX: R06.09 Other forms of dyspnea (principal); I11.9 Hypertensive heart disease without heart failure
CPT/HCPCS: 93306

== ENCOUNTER 2024-04-27 08:33 | Outpatient (OUT) | payer MEDICARE, OTHER, SELFPAY ==
--- OUTSIDE RECORDS SUMMARY | 2024-04-27 08:43 | XMS_ITS | CCD ---
Author Organization [facility] CliniSyut Care Team Providers Care [employer] Advanced Operator Maintainer Name Role Phone Furlong, Wild G Unavailable Unavailable Scheufele, Evangelical Unavailable Unavailable Furlong, DO Wild Primary Care Provider [phone] MD Bang Nunez Attending Provider Unavailable MD [...] Provider Furlong, DO Wild Primary Care Provider [phone] MD Mohan Mccartney Referring Provider MD Rose Ohara Attending Provider RONALDO, ALY E Referring Unavailable RONALDO, ALY E Admitting Unavailable RONALDO, ALY E Attending Unavailable VALENTINE PICKERING Consulting Unavailable FURLONG, WILD G Primary Care Unavailable Aly Higgins MD Attending Unavail able Furlong, DO Wild Primary Care Provider Bonita RESIDENTIAL ROOFER HELPER-C Irma Attending Provider MD Mohan Mccartney Referring [...] Furlong DO, Wild G Primary Care Provider KELBLEY, IRMA Attending Unavailable RONALDO, ALY E [...] Attending Unavailable RONALDO, ALY E Referring Unavailable BRVIRGINIA DOUGLASS Attending Unavailable RONALDO, ALY E Referring Unavailable KELBLEY, IRMA Attending Unavailable RONALDO, ALY E Referring Unavailable SHAN HASKINS Attending Unavailable KELBLEY, IRMA Attending Unavailable RONALDO, ALY E Referring Unavailable KELBLEY, IRMA Attending Unavailable RONALDO, ALY E Referring Unavailable KELBLEY, IRMA Attending Unavailable RONALDO, ALY E Referring Unavailable FURLONG, WILD G Referring Unavailable FURLONG, WILD G Primary Care Unavailable FURLONG, WILD G Attending Unavailable FURLONG, WILD G Referring Unavailable FURLONG, WILD G Primary Care Unavailable FURLONG, WILD G Referring Unavailable FURLONG, WILD G Primary Care Unavailable FURLONG, WIDL G Attending Unavailable FURLONG, WILD G Referring Unavailable FURLONG, WILD G Primary Care Unavailable ALGHOTHANISTEPHENAMAD Attending Unavailable ALGHOTHANI, MOHAMAD Attending Unavailable WITHERELL, VAISHALIMITH Attending Unavailable BONITA, IRMA Attending Unavailable WITHERELL, SHELMITH Attending Unavailable Allergies Allergy Classification Reported Allergen(s) Allergy [...] 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 ([facility]) 1 Unit by miscellaneous route every 10 days. 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 ([facility]) take 1 tablet by mouth twice a [...] 30 tablet 5 02/02/2024 Active Vit C-E-Zinc Mra-Puxkvr-Vkczlh ([facility]) 50 mg-15 unit- 4.5 mg-2.5 mg Tablet,Chewable (7 sources) Start: 04-11-2019 take 1 tablet by mouth once daily Vit C-E-Zinc Bvc-Rmicvp-Rpxitu ([facility]) 50 mg-15 unit- 4.5 mg-2.5 mg Tablet,Chewable Active 1 TAB PO Daily April 11, 2019 8:39am Start: 04-11-2019 take 1 tablet by montrell th once daily Vit C-E-Zinc Sqt-Vzqrsq-Evynff ([facility]) 50 mg-15 unit- 4.5 mg-2.5 mg Tablet,Chewable Active 1 TAB PO Daily April 10, 2019 11:00pm Start: 04-11-2019 take 1 tablet by montrell th once daily Vit C-E-Zinc Saj-Flykqe-Ggrmrd ([facility]) 50 mg-15 unit- 4.5 [...] Translations: [Chronic diastolic (congestive) heart failure] Onset: 05-17-20 Chronic Diabetes mellitus with complications (15 sources) [...] Chronic Hypertension with complications and secondary hypertension (12 sources) Hypertensive chronic kidney disease with stage [...] melanoma] Onset: 08-21-20 20 02-09-2021 Chronic Osteoarthritis (18 sources) Osteoarthritis of left [...] dyspnea; Translations: [Other forms of dyspnea] Onset: 03-23-20 Episodic Other non-traumatic joint disorders (3 sources) [...] (severe) obesity due to excess calories] Onset: 04-08-2008-05-2022 Chronic Other nutritional; endocrine; and metabolic disorders [...] sources) Localized edema; Translations: [Localized edema] Onset: 03-23-20 Episodic Spondylosis; intervertebral disc disorders; other back [...] Resolved: 01-11-2024 12-23-2023 Other aftercare (3 sources) 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 Long stopp ed spironolactone and wants repeat BMP in 1 week. I spoke with patient and made her aware. Order faxed to [facility]. [facility] 04-17-2024 36 Called patient to tejal sales her aware of normal EF and no valvular abnormalities on her echo. Noticed her potassium is still elevated at 5.6 after she stopped potassium last week. I asked Dr. Long for recommendations. [facility] 04-03-2024 36 Regarding lab result s from 04/03/2024: I just spoke with patient to make sure she had cut back potassium to 10mEq's daily. She told me she had given me the wrong medication list when she was here in the office. I asked her to stop the potassium completely and have repeat BMP in about 1 week. Order faxed to [facility]. Normal [facility] Telephoneon 04-03-2024 Telephone [id number] Renee Mcneal 1950 F Date Provider Department Center 04/03/2024 928-JOLANTAJOSUE BOWENKEV ALFREDO CARD [facility] Family History Problem Relation Age of Onset Coronary artery disease Father Heart attack Father Family Status - Relation Status Age at Father [facility] Office Visiton 03-23-2024 Follow-up visit [id number] Renee Mcneal 1950 F Date Provider Department Center 03/23/2024 3848-ROBERT LONG CARD [facility] Family History Problem Relation Age of Onset Coronary artery disease Father Heart attack Father Family Status - Relation Status Age at Father Level of Service:07622 SC OFFICE/OUTPATIENT ESTABLISHED MOD MDM 30 MIN [facility] COMPREHENSIVE METABOLIC PANE Heladio 01-11-2024 Albumin [Mass/Vol] 4.2 g/dL Normal 3.2-5.3 [facility] Comment on above: Performed By: #### C SHANTE, 17066-7, 78759-9, 2777-1, 3084-1, 2731-8, 36340-6 #### [facility] ([id number]) [address], [address] [place] [address] ALP [Catalytic activity/Vol] 74 U/L Normal 39-130 [facility] Comment on above: Performed By: #### C SHANTE, 57043-0, 66407-5, 2777-1, 3084-1, 2731-8, 48253-8 #### [facility] ([id number]) [address] [place] [address] ALT [Catalytic activity/Vol] 16 U/L Normal 0-31 [facility] Comment on above: Performed By: #### C SHANTE, 45201-9, 79268-2, 2777-1, 3084-1, 2731-8, 57508-7 #### [facility] ([id number]) [address], [address] [place] [address] Anion gap [Moles/Vol] 11 mmol/L Normal 5-15 [facility] Comment on above: Performed By: #### C MP, 75845-5, 40867-6, 2777-1, 3084-1, 2731-8, 39889-7 #### [facility] ([id number]) [address], [address] [place] [address] AST [Catalytic activity/Vol] 13 U/L Normal 0-41 [facility] Comment on above: Performed By: #### C MP, 51522-7, 28650-8, 2777-1, 3084-1, 2731-8, 08759-7 #### [facility] ([id number]) [address], [address] [place] [address] Bilirubin [Mass/Vol] 0.9 mg/dL Normal 0.3-1.2 [facility] Comment on above: Performed By: #### C MP, 44475-4, 99338-1, 2777-1, 3084-1, 2731-8, 10990-9 #### [facility] ([id number]) [address], [address] [place] [address] Calcium [Mass/Vol] 9.7 mg/dL Normal 8.5-10.5 [facility] Comment on above: Performed By: #### C MP, 91322-9, 93652-1, 2777-1, 3084-1, 2731-8, 33570-9 #### [facility] ([id number]) [address], [address] [place] [address] Chloride [Moles/Vol] 106 mmol/L Normal 98-109 [facility] Comment on above: Performed By: #### C MP, 22262-4, 54232-3, 2777-1, 3084-1, 2731-8, 61485-1 #### [facility] ([id number]) [address], [address] [place] [address] CO2 [Moles/Vol] 24 mmol/L Normal 22-32 [facility] Comment on above: Performed By: #### C SHANTE, 46106-1, 46397-8, 2777-1, 3084-1, 2731-8, 94289-7 #### [facility] ([id number]) [address], [address] [place] [address] Creatinine [Mass/Vol] 0.84 mg/dL Normal 0.40-1.00 [facility] Comment on above: Result Comment: METH OD TRACEABLE TO IDMS STANDARD Performed By: #### C SHANTE, 18526-0, 02086-5, 2777-1, 3084-1, 2731-8, 52870-6 #### [facility] ([id number]) [address], [address] [place] [address] GFR/1.73 sq M.predicted among non-blacks MDRD (S/P/Bld) [Vol rate/Area] 73 mL/min/{1.73_m2} Normal >59 [facility] Comment on above: Result Comment: Reported eGFR is based on the CKD-EPI 2020 equation that does not use a race coefficient. Performed By: #### C SHANTE, 54501-6, 55307-3, 7-1, 3084-1, 2731-8, 18558-3 #### [facility] ([id number]) [address], [address] [place] [address] Glucose [Mass/Vol] 132 mg/dL High 65-99 [facility] Comment on above: Performed By: #### C SHANTE, 19880-1, 57288-0, 2777-1, 3084-1, 2731-8, 75941-0 #### [facility] ([id number]) [address], [address] [place] [address] Potassium [Moles/Vol] 4.9 mmol/L Normal 3.5-5.0 [facility] Comment on above: Performed By: #### C MP, 18180-8, 08136-8, 2777-1, 3084-1, 2731-8, 60658-6 #### [facility] ([id number]) [address], [address] [place] [address] Protein [Mass/Vol] 6.9 g/dL Normal 6.0-8.0 [facility] Comment on above: Performed By: #### C MP, 07864-3, 93753-6, 2777-1, 3084-1, 2731-8, 75848-9 #### [facility] ([id number]) [address], [address] [place] [address] Sodium [Moles/Vol] 141 mmol/L Normal 134-146 [facility] Comment on above: Performed By: #### C SHANTE, 01670-2, 76521-8, 2777-1, 3084-1, 2731-8, 85451-8 #### [facility] ([id number]) [address], [address] [place] [address] Urea nitrogen [Mass/Vol] 21 mg/dL Normal 5-27 [facility] Comment on above: Performed By: #### C SHANTE, 84067-3, 69533-6, 2777-1, 3084-1, 2731-8, 75475-2 #### [facility] ([id number]) [address], [address] [place] [address] Comprehensive metabolic pane heladio 01-11-2024 Albumin [Mass/Vol] 4.2 g/dL 3.2 - 5.3 g/dL [facility] ALP [Catalytic activity/Vol] 74 U/L 39 - 130 U/L [facility] ALT No additional P-5'-P [Catalytic activity/Vol] 16 U/L 0 - 31 U/L [facility] Anion gap [Moles/Vol] 11 mmol/L 5 - 15 mmol/L [facility] AST [Catalytic activity/Vol] 13 U/L 0 - 41 U/L [facility] Bilirubin [Mass/Vol] 0.9 mg/dL 0.3 - 1 .2 mg/dL [facility] Calcium [Mass/Vol] 9.7 mg/dL 8.5 - 10. 5 mg/dL [facility] Chloride [Moles/Vol] 106 mmol/L 98 - 10 9 mmol/L [facility] CO2 [Moles/Vol] 24 mmol/L 22 - 32 mmol/L [facility] Creatinine [Mass/Vol] 0.84 mg/dL 0.40 - 1.00 mg/dL [facility] Comment on above: METHOD TRACEABLE TO [facility] STANDARD eGFR (CKD-EPI)non-race dependent 73 - PINF [facility] Comment on above: Reported eGFR is based on the CKD-EPI 2020 equation that does not use a race coefficient. Glucose [Mass/Vol] 132 mg/dL High 65 - 99 mg/dL [facility] Potassium [Moles/Vol] 4.9 mmol/L 3.5 - 5.0 mmol/L [facility] Protein [Mass/Vol] 6.9 g/dL 6.0 - 8.0 g/dL [facility] Sodium [Moles/Vol] 141 mmol/L 134 - 146 mmol/L [facility] Urea nitrogen [Mass/Vol] 21 mg/dL 5 - 27 mg/dL [facility] HGB A1C (GLYCO-HGB)on 2023 Glucose [Mass/Vol] 171 mg/dL Normal [facility] Comment on above: Performed By: #### C , 57236-0, 33329-3, 2777-1, 3084-1, 2731-8, 20036-5 #### [facility] ([id number]) [address] [place] [address] HbA1c (Bld) [Mass fraction] 7.6 % High 4.4-5.6 [facility] Comment on above: Result Comment: NOTE ADA Guidelines Result HgbA1c Normal : less than 5.7 % Prediabetes : 5.7 % to 6.4 % Diabetes : > 6.4 % Use with caution in patients with abnormal hemoglobin variants as the half-life of red blood cells and in vivo glycation rates are affected. Performed By: #### C , 48762-2, 57721-1, 2777-1, 3084-1, 2731-8, 21966-5 #### [facility] ([id number]) [address] [place] [address], [address] [place] [address] Hemoglobin A1con 01-11-2024 Average glucose Estimated from glycated hemoglobin (Bld) [Mass/Vol] 171 mg/dL [facility] HbA1c (Bld) [Mass fraction] 7.6 % High 4.4 - 5.6 % [facility] Comment on above: NOTE ADA Guidelines Result HgbA1c Normal : less than 5.7 % Prediabetes : 5.7 % to 6.4 % Diabetes : > 6.4 % Use with caution in patients with abnormal hemoglobin variants as the half-life of red blood cells and in vivo glycation rates are affected. Interpretation and review of laboratory results Abnormal [facility] Lipid 1996 panelon Cholesterol [Mass/Vol] 104 mg/dL Low 150 - 200 mg/dL [facility] Cholesterol in HDL [Mass/Vol] 46 mg/dL 39 - PINF mg/dL [facility] Comment on above: HDL <40 mg/dL - High Risk HDL > or = 40mg/dL- Desirable HDL >60 mg/dL - Negative Risk Cholesterol in LDL [Mass/Vol] 19 mg/dL NINF - 130 mg/dL [facility] Comment on above: LDL <100 mg/dL - Desirable LDL >160 mg/dL - High Risk Cholesterol in VLDL [Mass/Vol] 39 mg/dL High 0 - 30 mg/dL [facility] Cholesterol.total/Chol esterol in HDL [Mass ratio] 2.3 {ratio} 1.0 - 5.0 [facility] Triglyceride [Mass/Vol] 194 mg/dL High 27 - 150 mg/dL [facility] Cholesterol [Mass/Vol] 104 mg/dL Low 150-200 [facility] Comment on above: Performed By: #### C SHANTE, 52717-1, 20239-9, 2777-1, 3084-1, 2731-8, 85504-2 #### [facility] ([id number]) [address] [place] [address] Cholesterol in HDL [Mass/Vol] 46 mg/dL Normal >39 [facility] Comment on above: Result Comment: HDL <40 mg/dL - High Risk HDL > or = 40mg/dL- Desirable HDL >60 mg/dL - Negative Risk Performed By: ###Jeremy C SHANTE, 84959-5, 52778-1, 2777-1, 3084-1, 2731-8, 63672-6 #### [facility] ([id number]) [address], [address] [place] [address] Cholesterol in LDL [Mass/Vol] 19 mg/dL Normal <130 [facility] Comment on above: Result Comment: LDL <100 mg/dL - Desirable LDL >160 mg/dL - High Risk Performed By: #### C MP, 64026-3, 48049-3, 2777-1, 3084-1, 2731-8, 29530-0 #### [facility] ([id number]) [address], [address] [place] [address] Cholesterol in VLDL [Mass/Vol] 39 mg/dL High 0-30 [facility] Comment on above: Performed By: #### C SHANTE, 18272-4, 37205-2, 2777-1, 3084-1, 2731-8, 99359-8 #### [facility] ([id number]) [address], [address] [place] [address] CHOLESTEROL:HDL 2.3 Normal 1.0-5.0 [facility] Comment on above: Performed By: #### C SHANTE, 17749-3, 14692-3, 2777-1, 3084-1, 2731-8, 32570-9 #### [facility] ([id number]) [address], [address] [place] [address] Triglyceride [Mass/Vol] 194 mg/dL High 27-150 [facility] Comment on above: Performed By: #### C SHANTE, 41219-9, 29803-5, 2777-1, 3084-1, 2731-8, 24815-2 #### [facility] ([id number]) [address], [address] [place] [address] MAGNESIUMon 01-11-2024 Magnesium [Mass/Vol] 1.7 mg/dL Low 1.8-2.6 [facility] Comment on above: Performed By: #### C SHANTE, 07090-9, 59521-3, 2777-1, 3084-1, 2731-8, 58891-8 #### [facility] ([id number]) [address], [address] [place] [address] Magnesiumon 01-11-2024 Magnesium [Mass/Vol] 1.7 mg/dL Low 1.8 - 2 .6 mg/dL [facility] No Panel Informationon 03-06 -2024 Interpretation and review of laboratory results Abnormal [facility] PHOSPHORUSon 01-11-2024 Phosphate [Mass/Vol] 3.7 mg/dL Normal 2.4-4.9 [facility] Comment on above: Performed By: #### C SHANTE, 95810-5, 89657-2, 2777-1, 3084-1, 2731-8, 79054-5 #### [facility] ([id number]) [address] [place] [address] Parathyrin.intact [Mass/Vol] on 01-11-2024 [facility] PTH INTACT 61 pg/mL Normal 12-88 [facility] Comment on above: Performed By: #### C SHANTE, 26434-4, 23945-7, 2777-1, 3084-1, 2731-8, 61187-6 #### [facility] ([id number]) [address] [place] [address] Parathyroid Hormone, intacto n 01-11-2024 Parathyrin.intact [Mass/Vol] 61 pg/mL 12 - 88 pg/mL [facility] Phosphoruson 01-11-2024 Phosphate [Mass/Vol] 3.7 mg/dL 2.4 - 4 .9 mg/dL [facility] URIC ACIDon 01-11-2024 Urate [Mass/Vol] 6.6 mg/dL Normal 2.6-7.2 [facility] Comment on above: Performed By: #### Andres FREY, 30515-6, 32010-7, 2777-1, 3084-1, 2731-8, 54522-5 #### [facility] ([id number]) [address] [place] [address] Uric acidon 01-11-2024 Urate [Mass/Vol] 6.6 mg/dL 2.6 - 7.2 mg/dL [facility] Vitamin D 25 hydroxyon 01-10 Vitamin D+Metabolites [Mass/Vol] 11.1 ng/mL Low 30 - 100 ng/mL [facility] Comment on above: Vitamin D status 25 [place] Vitamin D Deficiency <20 ng/mL Insufficiency 20-29 ng/mL Sufficiency 30-100 ng/mL Toxicity >100 ng/mL NOTE: A pediatric reference range has not been established by the film and video graphics designer of this kit. The [place] [employer] recommends a Vitamin D level of = or >20ng/mL in infants and children. Vitamin D+Metabolites [Mass/ Vol]on 01-11-2024 Interpretation and review of laboratory results Abnormal [facility] VITAMIN D 25 HYD TOT 11.1 ng/mL Low 30-100 [facility] Comment on above: Result Comment: Vitamin D status 25 [place] Vitamin D Deficiency <20 ng/mL Insufficiency 20-29 ng/mL Sufficiency 30-100 ng/mL Toxicity >100 ng/mL NOTE: A pediatric reference range has not been established by the film and video graphics designer of this kit. The [place] [employer] recommends a Vitamin D level of = or >20ng/mL in infants and children. Performed By: #### C , 95891-9, 93711-8, 2777-1, 3084-1, 2731-8, 27331-7 #### [facility] ([id number]) [address] [place] [address], [address] [place] [address] Office Visiton 12-30-2023 Follow-up visit [id number] Renee Mcneal 1950 F Date Provider Department Center 12/30/2023 3848-ROBERT LONG Family History Problem Relation Age of Onset Coronary artery disease Father Heart attack Father Family Status - Relation Status Age at Father Level of Service:32014 SC OFFICE/OUTPATIENT ESTABLISHED LOW MDM 20 MIN Normal [facility] 36on 12-22-2023 36 ELIZABETH Campos MA Please let her know her Echo looks very good- better than the one in 2021. Normal EF- LV function, no diastolic dysfunction, no significant valve issues. Very good. Regarding echo performed on 12/20/2023 Patient informed. She verbalized understanding. Normal [facility] Alanine aminotransferase [En zymatic activity/volume] in Serum or PlasmaOrdered By: Farhana Sotomayor on 12-13-2023 ALT [Catalytic activity/Vol] 12 U/L 7-52 [facility] Albumin [Mass/volume] in Ser um or Plasma by Bromocresol green (BCG) dye binding methoOrdered By: Farhanakim Sotomayor on 12-13-2023 Albumin BCG dye [Mass/Vol] 4.0 g/dL 3.5-5.7 [facility] Alkaline phosphatase [Enzyma tic activity/volume] in Serum or PlasmaOrdered By: Farhana [facility] 12-13-2023 ALP [Catalytic activity/Vol] 55 U/L 34-104 [facility] Aspartate aminotransferase [ Enzymatic activity/volume] in Serum or PlasmaOrdered By: Farhana Sotomayor on 12-13-2023 AST [Catalytic activity/Vol] 11 U/L 13-39 [facility] B-Type Natriuretic Peptideon 12-13-2023 Natriuretic peptide B (Bld) [Mass/Vol] 70.0 pg/mL Normal 5-100 [facility] Comment on above: Order Comment: [facility] CBC and CMP ordered under [facility] Acct. please forward a copy of report to [facility] patient fasting 12 hrs Result Comment: PERF ORMED BY: [place] [address] PATHOLOGIST MEDICAL SERVICES COORDINATOR SHEBA RICO M.D. Performed By: #### M G, BNP #### [address] Basophils Auto (Bld) [#/Vol] Ordered By: Farhananicko Jerome on 12-13-2023 Basophils (Bld) [#/Vol] 0.1 10*3/uL 0.0-0.2 [facility] Basophils/100 WBC Auto (Bld) Ordered By: Farhana Sotomayor on 12-13-2023 Basophils/100 WBC (Bld) 1.2 % . [facility] Bilirubin.total [Mass/volume ] in Serum or PlasmaOrdered By: Farhana Sotomayor on 12-13-2023 Bilirubin [Mass/Vol] 0.8 mg/dL 0.3-1.0 [facility] abdomen pelvis w conon CT abdomen pelvis w con [facility] [place] [address] [place] [address] CT Scan Report Signed Patient: Tosha Mcneal MR#: [id number] : 1950 Acct:[id number] Age/Sex: 73 / F ADM Date: 12/13/23 Loc: XT Room: [facility] Attending Dr: Rose Ohara MD Copies to: MD Farhana Gutierrez APRN Ordering Provider: Farhana Sotomayor APRN Date of Service: 12/13/23 CT/CT abdomen pelvis w con: surveillance melanoma ([id number]) CT/CT chest w con: surveillance melanoma CT [...] Omid Echevarria M.D.12/13/2023 2:39 PM Dictation Location: [place] [address] Transcribed By: [facility] 12/13/23 1439 Dictated By: Omid Echevarria DO 12/13/23 1430 Signed By: 12/13/23 1439 Normal [facility] Calcium [Mass/volume] in Ser um or PlasmaOrdered By: Farhana Sotomayor on 12-13-2023 Calcium [Mass/Vol] 9.3 mg/dL 8.6-10.3 [facility] Carbon dioxide, total [Moles /volume] in Serum or PlasmaOrdered By: Farhana Sotomayor on 12-13-2023 CO2 [Moles/Vol] 26.9 mmol/L 21.0-31.0 [facility] Chloride [Moles/volume] in S marlena or PlasmaOrdered By: Farhana Sotomayor on 12-13-2023 Chloride [Moles/Vol] 103 mmol/L 98-107 [facility] Complete Blood Count Auto Di ffon 12-13-2023 Basophils (Bld) [#/Vol] 0.1 10*3/uL Normal 0.0-0.2 [facility] Comment on above: Result Comment: PERF ORMED BY: [place] [address] PATHOLOGIST MEDICAL SERVICES COORDINATOR SHEBA RICO M.D. Performed By: #### C BC #### [address] Basophils/100 WBC (Bld) 1.2 % Normal . [facility] Comment on above: Performed By: #### C BC #### [address] Eosinophils (Bld) [#/Vol] 0.2 10*3/uL Normal 0.0-0.45 [facility] System Comment on above: Performed By: #### C BC #### [address] Eosinophils/100 WBC (Bld) 2.4 % Normal . [facility] Comment on above: Performed By: #### C BC #### [address] Erythrocyte distribution width (RBC) [Ratio] 16.0 % High 11.9-15.3 [facility] Comment on above: Performed By: #### C BC #### [address] Hematocrit (Bld) [Volume fraction] 35.5 % Normal 34.0-46.4 [facility] Comment on above: Performed By: #### C BC #### [address] Hemoglobin (Bld) [Mass/Vol] 11.5 g/dL Low 11.8-15.4 [facility] Comment on above: Performed By: #### C BC #### [place] [address] [place] Lymphocytes (Bld) [#/Vol] 1.9 10*3/uL Normal 1.00-4.8 [facility] Comment on above: Performed By: #### C BC #### [address] Lymphocytes/100 WBC (Bld) 25.0 % Normal . [facility] Comment on above: Performed By: #### C BC #### [facility] [address] MCH (RBC) [Entitic mass] 28.3 pg Normal 24.7-34.3 [facility] Comment on above: Performed By: #### C BC #### [facility] [address] MCV (RBC) [Entitic vol] 87.2 fL Normal 80-100 [facility] Comment on above: Performed By: #### C BC #### [facility] [address] Mean Corpuscular HGB Conc 32.5 g/dL Normal 32.0-35.0 [facility] Comment on above: Performed By: #### C BC #### [address] Monocytes (Bld) [#/Vol] 0.6 10*3/uL Normal 0.0-0.8 [facility] Comment on above: Performed By: #### C BC #### [address] Monocytes/100 WBC (Bld) 8.3 % Normal . [facility] Comment on above: Performed By: #### C BC #### [address] Neutrophils (Bld) [#/Vol] 4.8 10*3/uL Normal 1.8-7.7 [facility] Comment on above: Performed By: #### C BC #### [address] Neutrophils/100 WBC (Bld) 63.1 % Normal . [facility] Comment on above: Performed By: #### C BC #### [address] NRBC% 0.0 /100{WBC} Normal 0-0.5 [facility] Comment on above: Performed By: #### C BC #### [place] [address] [place] Platelet mean volume (Bld) [Entitic vol] 7.5 fL Normal 6.3-10.7 [facility] Comment on above: Performed By: #### C BC #### [facility] [address] Platelets (Bld) [#/Vol] 220 10*3/uL Normal 150-450 [facility] Comment on above: Performed By: #### C BC #### [facility] [address] RBC (Bld) [#/Vol] 4.07 10*6/uL Normal 3.60-5.00 [facility] Comment on above: Performed By: #### C BC #### [facility] [address] WBC (Bld) [#/Vol] 7.6 10*3/uL Normal 3.8-11.6 [facility] Comment on above: Performed By: #### C BC #### [facility] [address] Comprehensive Metabolic Pane heladio 12-13-2023 Albumin [Mass/Vol] 4.0 g/dL Normal 3.5-5.7 [facility] Comment on above: Order Comment: stat for CT Bun/creat patient has a duplicate for CMP and cbc for Irma Blackburns please send copy of report to her also. orders scanned in under Acct. [id number] Patient fasting since 0830 pm 0n 12/12/23 Performed By: #### C MP, LDH #### [facility] [address] Albumin/Globulin [Mass ratio] 1.5 {ratio} Normal [facility] Comment on above: Order Comment: stat for CT Bun/creat patient has a duplicate for CMP and cbc for Irma Blackburns please send copy of report to her also. orders scanned in under Acct. [id number] Patient fasting since 0830 pm 0n 12/12/23 Performed By: #### C MP, LDH #### [facility] [address] ALP [Catalytic activity/Vol] 55 U/L Normal 34-104 [facility] Comment on above: Order Comment: stat for CT Bun/creat patient has a duplicate for CMP and cbc for Irma Blackburns please send copy of report to her also. orders scanned in under Acct. [id number] Patient fasting since 0830 pm 0n 12/12/23 Performed By: #### C MP, LDH #### [facility] [address] [place] [id number] [facility] ALT [Catalytic activity/Vol] 12 U/L Normal 7-52 [facility] Comment on above: Order Comment: stat for CT Bun/creat patient has a duplicate for CMP and cbc for Irma Blackburns please send copy of report to her also. orders scanned in under Acct. [id number] Patient fasting since 0830 pm 0n 12/12/23 Performed By: #### C MP, LDH #### [facility] [address] [place] [phone] [facility] Anion gap [Moles/Vol] 14.4 mmol/L Normal 6.0-15.0 [facility] Comment on above: Order Comment: stat for CT Bun/creat patient has a duplicate for CMP and cbc for Irma Blackburns please send copy of report to her also. orders scanned in under Acct. [id number] Patient fasting since 0830 pm 0n 12/12/23 Performed By: #### C MP, LDH #### [facility] [address] [place] [phone] [facility] AST [Catalytic activity/Vol] 11 U/L Low 13-39 [facility] Comment on above: Order Comment: stat for CT Bun/creat patient has a duplicate for CMP and cbc for Irma Blackburns please send copy of report to her also. orders scanned in under Acct. [id number] Patient fasting since 0830 pm 0n 12/12/23 Performed By: #### C MP, LDH #### [facility] [address] [place] [address] [facility] Bilirubin [Mass/Vol] 0.8 mg/dL Normal 0.3-1.0 [facility] Comment on above: Order Comment: stat for CT Bun/creat patient has a duplicate for CMP and cbc for Irma Bonita please send copy of report to her also. orders scanned in under Acct. [id number] Patient fasting since 0830 pm 0n 12/12/23 Performed By: #### C MP, LDH #### [facility] [address] [place] [address] [facility] Calcium [Mass/Vol] 9.3 mg/dL Normal 8.6-10.3 [facility] Comment on above: Order Comment: stat for CT Bun/creat patient has a duplicate for CMP and cbc for Irma Bonita please send copy of report to her also. orders scanned in under Acct. [id number] Patient fasting since 0830 pm 0n 12/12/23 Performed By: #### C MP, LDH #### [facility] [address] [place] [address] [facility] Chloride [Moles/Vol] 103 mmol/L Normal 98-107 [facility] Comment on above: Order Comment: stat for CT Bun/creat patient has a duplicate for CMP and cbc for Irma Bonita please send copy of report to her also. orders scanned in under Acct. [id number] Patient fasting since 0830 pm 0n 12/12/23 Performed By: #### C MP, LDH #### [facility] [address] [place] [address] [facility] CO2 [Moles/Vol] 26.9 mmol/L Normal 21.0-31.0 [facility] [place] Comment on above: Order Comment: stat for CT Bun/creat patient has a duplicate for CMP and cbc for Irma Bonita please send copy of report to her also. orders scanned in under Acct. [id number] Patient fasting since 0830 pm 0n 12/12/23 Performed By: #### C MP, LDH #### [facility] [address] [place] [address] [place] Creatinine [Mass/Vol] 1.05 mg/dL Normal 0.60-1.20 [facility] Comment on above: Order Comment: stat for CT Bun/creat patient has a duplicate for CMP and cbc for Irma Bonita please send copy of report to her also. orders scanned in under Acct. [id number] Patient fasting since 0830 pm 0n 12/12/23 Performed By: #### C MP, LDH #### [facility] [address] [place] [phone] [place] Creatinine Clr Calc Pharmacy 51.93 [facility] Comment on above: Order Comment: stat for CT Bun/creat patient has a duplicate for CMP and cbc for Irma Blackburns please send copy of report to her also. orders scanned in under Acct. [id number] Patient fasting since 0830 pm 0n 12/12/23 Performed By: #### C MP, LDH #### [facility] [address] [place] [address] [facility] GFR/1.73 sq M.predicted MDRD (S/P/Bld) [Vol rate/Area] 55.755 mL/min/{1.73_m2} [facility] Comment on above: Order Comment: stat for CT Bun/creat patient has a duplicate for CMP and cbc for Irma Blackburns please send copy of report to her also. orders scanned in under Acct. [id number] Patient fasting since 0830 pm 0n 12/12/23 Performed By: #### C MP, LDH #### [facility] [address] [place] [phone] [facility] Globulin (S) [Mass/Vol] 2.7 g/dL [facility] Comment on above: Order Comment: stat for CT Bun/creat patient has a duplicate for CMP and cbc for Irma Bonita please send copy of report to her also. orders scanned in under Acct. [id number] Patient fasting since 0830 pm 0n 12/12/23 Performed By: #### C MP, LDH #### [facility] [address] [place] [address] [place] Glucose [Mass/Vol] 135 mg/dL High 70-100 [facility] Comment on above: Order Comment: stat for CT Bun/creat patient has a duplicate for CMP and cbc for Irma Bonita please send copy of report to her also. orders scanned in under Acct. [id number] Patient fasting since 0830 pm 0n 12/12/23 Result Comment: [facility] Glucose Reference Range is dependent on time and content of last meal. Glucose of more than 200 mg/dL in a nonstressed, ambulatory subject supports the diagnosis of Diabetes Mellitus. ADA recommended reference range Performed By: #### C MP, LDH #### [facility] [address] [place] [phone] [facility] Potassium [Moles/Vol] 5.3 mmol/L High 3.5-5.1 [facility] Comment on above: Order Comment: stat for CT Bun/creat patient has a duplicate for CMP and cbc for Irma Bonita please send copy of report to her also. orders scanned in under Acct. [id number] Patient fasting since 0830 pm 0n 12/12/23 Performed By: #### C MP, LDH #### [facility] [address] [place] [phone] [place] Protein [Mass/Vol] 6.7 g/dL Normal 6.4-8.9 [facility] Comment on above: Order Comment: stat for CT Bun/creat patient has a duplicate for CMP and cbc for Irma Bonita please send copy of report to her also. orders scanned in under Acct. [id number] Patient fasting since 0830 pm 0n 12/12/23 Performed By: #### C MP, LDH #### [facility] [address] [place] [phone] [place] Sodium [Moles/Vol] 139 mmol/L Normal 136-145 [facility] Comment on above: Order Comment: stat for CT Bun/creat patient has a duplicate for CMP and cbc for Irma Bonita please send copy of report to her also. orders scanned in under Acct. [id number] Patient fasting since 0830 pm 0n 12/12/23 Performed By: #### C MP, LDH #### [facility] [address] [place] [phone] [place] Urea nitrogen [Mass/Vol] 27 mg/dL High 7-25 [facility] Comment on above: Order Comment: stat for CT Bun/creat patient has a duplicate for CMP and cbc for Irma Bonita please send copy of report to her also. orders scanned in under Acct. [id number] Patient fasting since 0830 pm 0n 12/12/23 Performed By: #### C MP, LDH #### [facility] [address] Creatinine [Mass/volume] in Serum or PlasmaOrdered By: Farhana Sotomayor on 12-13-2023 Creatinine [Mass/Vol] 1.05 mg/dL 0.60-1.20 [facility] Eosinophils Auto (Bld) [#/Vo l]Ordered By: Farhana Sotomayor on 12-13-2023 Eosinophils (Bld) [#/Vol] 0.2 10*3/uL 0.0-0.45 [facility] Eosinophils/100 WBC Auto (Bl d)Ordered By: Farhana Sotomayor on 12-13-2023 Eosinophils/100 WBC (Bld) 2.4 % . [facility] Erythrocyte distribution wid th Auto (RBC) [Ratio]Ordered By: Farhana Sotomayor on 12-13-2023 Erythrocyte distribution width (RBC) [Ratio] 16.0 % 11.9-15.3 [facility] Globulin Calc (S) [Mass/Vol] Ordered By: Farhana Sotomayor on 12-13-2023 Globulin (S) [Mass/Vol] 2.7 g/dL [facility] Glucose [Mass/volume] in Ser um or PlasmaOrdered By: Farhana Sotomayor on 12-13-2023 Glucose [Mass/Vol] 135 mg/dL 70-100 [facility] Comment on above: ADA recommended refe rence rangeRandom Glucose Reference Range is dependent on time and content of last meal. Glucose of more than 200 mg/dL in a nonstressed, ambulatory subject supports the diagnosis of Diabetes Mellitus. Hematocrit Auto (Bld) [Volum e fraction]Ordered By: Farhana Sotomayor on 12-13-2023 Hematocrit (Bld) [Volume fraction] 35.5 % 34.0-46.4 [facility] Hemoglobin [Mass/volume] in BloodOrdered By: Farhana Sotomayor on 12-13-2023 Hemoglobin (Bld) [Mass/Vol] 11.5 g/dL 11.8-15.4 [facility] LDH Lactate Dehydrogenaseon 12-13-2023 LDH Lactate Dehydrogenase 118 U/L Low 140-271 [facility] Comment on above: Order Comment: stat for CT Bun/creat patient has a duplicate for CMP and cbc for Irma Mesa please send copy of report to her also. orders scanned in under Acct. [id number] Patient fasting since 0830 pm 0n 12/12/23 Result Comment: PERF ORMED BY: [facility] [address] [place] [address] PATHOLOGIST MEDICAL SERVICES COORDINATOR SHEBA RICO M.D. Performed By: #### C MP, LDH ####[facility] [id number] [place] [address] [facility] Lactate dehydrogenase [Enzym atic activity/volume] in Serum or Plasma by Lactate to pyOrdered By: Farhana Sotomayor on 12-13-2023 LDH Lactate to pyruvate reaction [Catalytic activity/Vol] 118 U/L 140-271 [facility] Leukocytes [#/volume] correc jin for nucleated erythrocytes in Blood by Automated counOrdered By: Farhana Sotomayor on 12-13-2023 WBC corrected for nucl RBC Auto (Bld) [#/Vol] 7.6 10*3/uL 3.8-11.6 [facility] Lymphocytes Auto (Bld) [#/Vo l]Ordered By: Farhana Sotomayor on 12-13-2023 Lymphocytes (Bld) [#/Vol] 1.9 10*3/uL 1.00-4.8 [facility] Lymphocytes/100 WBC Auto (Bl d)Ordered By: Farhana Sotomayor on 12-13-2023 Lymphocytes/100 WBC (Bld) 25.0 % . [facility] MCH Auto (RBC) [Entitic mass ]Ordered By: Farhana Sotomayor on 12-13-2023 MCH (RBC) [Entitic mass] 28.3 pg 24.7-34.3 [facility] MCHC Auto (RBC) [Mass/Vol]Or dered By: Farhana Sotomayor on 12-13-2023 MCHC (RBC) [Mass/Vol] 32.5 g/dL 32.0-35.0 [facility] MCV Auto (RBC) [Entitic vol] Ordered By: Farhana Sotomayor on 12-13-2023 MCV (RBC) [Entitic vol] 87.2 fL 80-100 [facility] Magnesiumon 12-13-2023 Magnesium [Mass/Vol] 1.5 mg/dL Low 1.9-2.7 [facility] Comment on above: Order Comment: Kaylee ya order for this patient for CBC and CMP ordered under [facility] Center Acct. please forward a copy of report to Irma Mesa N.P. patient fasting 12 hrs Result Comment: PERF ORMED BY: [place] [address] PATHOLOGIST MEDICAL SERVICES COORDINATOR SHEBA RICO M.D. Performed By: #### M G, BNP #### [address] Magnesium [Mass/volume] in S marlena or PlasmaOrdered By: Irma Mesa on 12-13-2023 Magnesium [Mass/Vol] 1.5 mg/dL 1.9-2.7 [facility] Monocytes Auto (Bld) [#/Vol] Ordered By: Farhana Sotomayor on 12-13-2023 Monocytes (Bld) [#/Vol] 0.6 10*3/uL 0.0-0.8 [facility] Monocytes/100 WBC Auto (Bld) Ordered By: Farhana Sotomayor on 12-13-2023 Monocytes/100 WBC (Bld) 8.3 % . [facility] Natriuretic peptide B [Mass/ Vol]Ordered By: Irma Mesa on 12-13-2023 Natriuretic peptide B (Bld) [Mass/Vol] 70.0 pg/mL 5-100 [facility] Neutrophils Auto (Bld) [#/Vo l]Ordered By: Farhana Sotomayor on 12-13-2023 Neutrophils (Bld) [#/Vol] 4.8 10*3/uL 1.8-7.7 [facility] Neutrophils/100 WBC Auto (Bl d)Ordered By: Farhana Sotomayor on 12-13-2023 Neutrophils/100 WBC (Bld) 63.1 % . [facility] No Panel InformationOrdered By: Farhana Sotomayor on 12-13-2023 Estimated GFR (CKD-EPI) 55.755 mL/Min [facility] Creatinine Clearance (Chem 51.93 [facility] Nucleated erythrocytes [Pres ence] in Blood by Automated countOrdered By: Farhana Sotomayor on 12-13-2023 Nucleated RBC Auto Ql (Bld) 0.0 /100{WBC} 0-0.5 [facility] Platelet mean volume Auto (B ld) [Entitic vol]Ordered By: Farhana Sotomayor on 12-13-2023 Platelet mean volume (Bld) [Entitic vol] 7.5 fL 6.3-10.7 [facility] Platelets Auto (Bld) [#/Vol] Ordered By: Farhana Sotomayor on 12-13-2023 Platelets (Bld) [#/Vol] 220 10*3/uL 150-450 [facility] Potassium [Moles/volume] in Serum or PlasmaOrdered By: Farhana Sotomayor on 12-13-2023 Potassium [Moles/Vol] 5.3 mmol/L 3.5-5.1 [facility] Protein [Mass/volume] in Ser um or PlasmaOrdered By: Farhana Sotomayor on 12-13-2023 Protein [Mass/Vol] 6.7 g/dL 6.4-8.9 [facility] RBC Auto (Bld) [#/Vol]Ordere d By: Farhana Sotomayor on 12-13-2023 RBC (Bld) [#/Vol] 4.07 10*6/uL 3.60-5.00 [facility] Serum or plasma albumin/glob ulin mass ratioOrdered By: Farhana Sotomayor on 12-13-2023 Albumin/Globulin [Mass ratio] 1.5 {ratio} [facility] Serum or plasma anion gap de terminationOrdered By: Farhana Sotomayor on 12-13-2023 Anion gap [Moles/Vol] 14.4 mmol/L 6.0-15.0 [facility] Sodium [Moles/volume] in Ser um or PlasmaOrdered By: Farhana Sotomayor on 12-13-2023 Sodium [Moles/Vol] 139 mmol/L 136-145 [facility] US extremity nonvascularon 0 12-13-2023 US extremity nonvascular [facility] [place] [address] Ultrasound Report Signed Patient: Tosha Mcneal MR#: [id number] : 1950 Acct:[id number] Age/Sex: 73 / F ADM Date: 12/13/23 Loc: XT Room: Type: [facility] RCR Attending Dr: Rose Ohara MD Ordering [...] Francesco Boggs M.D.12/13/2023 2:06 PM Dictation Location: [place] [address] Tech: Miri Pastrana Transcribed By: SRUTHI 12/13/23 140 Dictated By: Francesco Boggs II, MD 12/13/23 140 Signed By: 12/13/23 1406 Normal [facility] Urea nitrogen [Mass/volume] in Serum or PlasmaOrdered By: Farhana Sotomayor on 12-13-2023 Urea nitrogen [Mass/Vol] 27 mg/dL 7-25 [facility] WBC Auto (Bld) [#/Vol]Ordere d By: Farhana Sotomayor on 12-13-2023 WBC (Bld) [#/Vol] 7.6 10*3/uL 3.8-11.6 [facility] 37on 12-02-2023 37 Stop Amlodipine/Norv asc- this [...] pillows than normal or in recliner. Normal [facility] Office Visiton 12-02-2023 Follow-up visit [id number] Renee Mcneal Ilan 1950 F Date Provider Department Center 12/02/2023 Marlen-IRMA MESA KIT [facility] Family History Problem Relation Age of Onset Coronary artery disease Father Heart attack Father Family Status - Relation Status Age at Father Level of Service:01920 SC OFFICE/OUTPATIENT ESTABLISHED MOD MDM 30 MIN Normal [facility] Operative Reporton Operative Report Indication for Surge ry Wound dehiscence left total knee Preoperative Diagnosis Wound dehiscence left total knee Postoperative Diagnosis Wound dehiscence left total knee Operation Debridement Lower Extremity, INCISION AND DRAINAGE LEFT KNEE, SECONDARY CLOSURE OF WOUND DEHISENCE, PREVENNA PLACMENT, Left, Knee Surgeon(s) Ronaldo JUAREZ, Aly Guzman (Surgeon - Primary) Research Support Specialist Miguel HART, Dee Dee Hays (Steel Estimator) Anesthesia General Li MD, Hank Richard (Cartridge Belt Puncher) Joleen Lala (Provider) Estimated Blood Loss 10 cc Urine [...] stable condition. Will be discharged home with [place] and Keflex 500 mg p.o. 3 times daily x 7 days. Return the office in 1 week for wound check. Tourniquet Time NA Sponge/Needle Count correct Fluid Count as per chart Catheters, Drains, Tubes Prevena Electronically signed by Aly Higgins MD 11/09/23 17:29 EST Normal [facility] POC Glucose Randomon 024 Glucose [Mass/Vol] 118 mg/dL High 70-99 [facility] Comment on above: Performed By: #### C [id number] #### [address] [address] Glucose [Mass/Vol] 137 mg/dL High 70-99 [facility] Comment on above: Performed By: #### C [id number] #### [address] [place] [address] Glucose [Mass/Vol] 138 mg/dL High 70-99 [facility] Comment on above: Performed By: #### C [id number] #### [address] [address] Hgb/Hcton 10-04-2023 Hematocrit (Bld) [Volume fraction] 35.2 % Low 36.3-47.1 [facility] Comment on above: Performed By: #### H H #### [address] [place] [address] [employer] Installation [employer] Supervisor: Alexey Rob MD Hemoglobin (Bld) [Mass/Vol] 11.5 g/dL Low 11.9-15.1 [facility] Comment on above: Performed By: #### H H #### [address] [place] [address] [employer] Supervisor: Alexey Rob MD OPERATIVE REPORTon OPERATIVE REPORT [address] [address] OPERATIVE REPORT PATIENT NAME: TOSHA MCNEAL : 1950 MED REC NO: [id number] ROOM: 0331 ACCOUNT NO: [id number] ADMIT DATE: 10/03/2023 PROVIDER: Aly Higgins DATE [...] to go with a 32-mm patellar dome. [place]od[place] holes were placed. Knee was then cleansed [...] layer was then closed with #1 Vicryl [id number] sutures over two Hemovac drains. Vancomycin powder [...] a stable condition. ALY HIGGINS PH/[id number]_T Doc#: [id number] CC: Normal [facility] MRSA, DNA, Nasalon 3 MRSA, DNA, Nasal Negative Normal [facility] Comment on above: Result Comment: [...] infections. Performed By: #### M RSANO #### [facility] [address] [place], [place] [id number] [employer] Supervisor: Jose Miguel Davis MD [facility] [address] [place], [place] [id number] [employer] Supervisor: Alexey Rob MD Basic Metabolic Profon 09-08 Anion gap [Moles/Vol] 12 mmol/L Normal 9-17 [facility] Comment on above: Performed By: #### B SHANTE, CDP #### [facility] [address] [place], [place] [id number] [employer] Supervisor: Alexey Rob MD BUN/CRE Ratio 35 High 9-20 [facility] Comment on above: Performed By: #### B SHANTE, CDP #### [facility] [address] [place], [place] [id number] [employer] Install[employer] Supervisor: Alexey Rob MD Calcium [Mass/Vol] 9.9 mg/dL Normal 8.6-10.4 [facility] Comment on above: Performed By: #### B SHANTE, CDP #### [facility] [address] [place], [place] [id number] [employer] Supervisor: Alexey Rob MD Chloride [Moles/Vol] 99 mmol/L Normal 98-107 [facility] Comment on above: Performed By: #### B MP, CDP #### [facility] [address] [place], [place] [id number] [employer] Supervisor: Alexey Rob MD CO2 [Moles/Vol] 27 mmol/L Normal 20-31 [facility] Comment on above: Performed By: #### B SHANTE, CDP #### [facility] [address] [place] [address] [employer] Supervisor: Alexey Rob MD Creatinine [Mass/Vol] 1.0 mg/dL High 0.5-0.9 [facility] Comment on above: Performed By: #### B SHANTE, CDP #### [facility] [address] [place] [address] [employer] Supervisor: Alexey Rob MD GFR/1.73 sq M.predicted among non-blacks MDRD (S/P/Bld) [Vol rate/Area] 59 mL/min/{1.73_m2} Low >60 [facility] Comment on above: Result Comment: These results [...] Performed By: #### B SHANTE, CDP #### [address] [place] [address] [employer] Supervisor: Alexey Rob MD Glucose [Mass/Vol] 126 mg/dL High 70-99 [facility] Comment on above: Performed By: #### B SHANTE, CDP #### [facility] [address] [place] [address] [employer] Supervisor: Alexey Rob MD Potassium [Moles/Vol] 4.9 mmol/L Normal 3.7-5.3 [facility] [facility] Comment on above: Performed By: #### B SHANTE, CDP #### [facility] [address] [place] [address] [employer] Supervisor: Alexey Rob MD Sodium [Moles/Vol] 138 mmol/L Normal 135-144 [facility] Comment on above: Performed By: #### B SHANTE, CDP #### [facility] [address] [place], [place] [address] [employer] Supervisor: Alexey Rob MD Urea nitrogen [Mass/Vol] 35 mg/dL High 8-23 [facility] Comment on above: Performed By: #### B SHANTE, CDP #### [facility] [address] [place], [place] [address] [employer] Supervisor: Alexey Rob MD CBC with Diffon 09-08-2023 Abs. Basophil 0.07 k/uL Normal 0.00-0.20 [facility] Comment on above: Performed By: #### B SHANTE, CDP #### [facility] [address] [place] [address] Dr. [place], [place] [address] [employer] Supervisor: Alexey Rob MD Abs.Imm.Granulocyte 0.04 k/uL Normal 0.00-0.30 [facility] Comment on above: Performed By: #### B SHANTE, CDP #### [address] [place], [place] [address] [employer] Supervisor: Alexey Rob MD Abs.Neutrophil (Seg) 5.10 k/uL Normal 1.50-8.10 [facility] Comment on above: Performed By: #### B SHANTE, CDP #### [facility] [address] [place] [address] Dr. [place], [facility] [employer] Supervisor: Alexey Rob MD Basophils/100 WBC (Bld) 1 % Normal 0-2 [facility] Comment on above: Performed By: #### B SHANTE, CDP #### [address] [place], [facility] [employer] Supervisor: Alexey Rob MD Eosinophils (Bld) [#/Vol] 0.13 10*3/uL Normal 0.00-0.44 [facility] Comment on above: Performed By: #### B SHANTE, CDP #### [facility] [address] [place], [place] [id number] [employer] Supervisor: Alexey Rob MD Eosinophils/100 WBC (Bld) 2 % Normal 1-4 [facility] Comment on above: Performed By: #### B MP, CDP #### [address] [place], [place] [id number] [employer] Supervisor: Alexey Rob MD Erythrocyte distribution width (RBC) [Ratio] 13.6 % Normal 11.8-14.4 [facility] Comment on above: Performed By: #### B MP, CDP #### [address] [place], [place] [id number] [employer] Supervisor: Alexey Rob MD Hematocrit (Bld) [Volume fraction] 44.2 % Normal 36.3-47.1 [facility] Comment on above: Performed By: #### B MP, CDP #### [address] [place], [place] [id number] [employer] Supervisor: Alexey Rob MD Hemoglobin (Bld) [Mass/Vol] 14.1 g/dL Normal 11.9-15.1 [facility] Comment on above: Performed By: #### B MP, CDP #### [address] [place], [place] [id number] [employer] Supervisor: Alexey Rob MD Immature granulocytes/100 WBC (Bld) 1 % High 0 [facility] Comment on above: Performed By: #### B MP, CDP #### [address] [place], [place] [id number] [employer] Supervisor: Alexey Rob MD Lymphocytes (Bld) [#/Vol] 1.87 10*3/uL Normal 1.10-3.70 [facility] Comment on above: Performed By: #### B MP, CDP #### [address] [place], [place] [id number] [employer] Supervisor: Alexey Rob MD Lymphocytes/100 WBC (Bld) 24 % Normal 24-43 [facility] Comment on above: Performed By: #### B MP, CDP #### [facility] [address] [place], [place] [id number] [employer] Supervisor: Alexey Rob MD MCH (RBC) [Entitic mass] 29.5 pg Normal 25.2-33.5 [facility] Comment on above: Performed By: #### B MP, CDP #### [facility] [address] [place], [place] [id number] [employer] Supervisor: Alexey Rob MD MCHC (RBC) [Mass/Vol] 31.9 g/dL Normal 28.4-34.8 [facility] Comment on above: Performed By: #### B MP, CDP #### [facility] [address] [place] [address] Dr[address] [place], [place] [id number] [employer] Supervisor: Alexey Rob MD MCV (RBC) [Entitic vol] 92.5 fL Normal 82.6-102.9 [facility] Comment on above: Performed By: #### B MP, CDP #### [address] [place], [place] [id number] [employer] Supervisor: Alexey Rob MD Monocytes (Bld) [#/Vol] 0.75 10*3/uL Normal 0.10-1.20 [facility] Comment on above: Performed By: #### B MP, CDP #### [facility] [address] [place], [place] [id number] [employer] Supervisor: Alexey Rob MD Monocytes/100 WBC (Bld) 9 % Normal 3-12 [facility] Comment on above: Performed By: #### B MP, CDP #### [facility] [address] [place], [place] [id number] [employer] Supervisor: Alexey Rob MD Neutrophil (Seg) 63 % Normal 36-65 [facility] Comment on above: Performed By: #### B MP, CDP #### [facility] [address] [place] [address] [employer] Supervisor: Alexey Rob MD NRBC Automated 0.0 per 100 WBC Normal 0.0 [facility] Comment on above: Performed By: #### B MP, CDP #### [facility] [address] [place] [address] [employer] Supervisor: Alexey Rob MD Platelet mean volume (Bld) [Entitic vol] 9.6 fL Normal 8.1-13.5 [facility] Comment on above: Performed By: #### B SHANTE, CDP #### [facility] [address] [place] [address] [employer] Supervisor: Alexey Rob MD Platelets (Bld) [#/Vol] 205 10*3/uL Normal 138-453 [facility] Comment on above: Performed By: #### B SHANTE, CDP #### [facility] [address] [place] [address] [employer] Supervisor: Alexey Rob MD RBC (Bld) [#/Vol] 4.78 10*6/uL Normal 3.95-5.11 [facility] Comment on above: Performed By: #### B MP, CDP #### [facility] [address] [place] [address] [employer] Supervisor: Alexey Rob MD WBC (Bld) [#/Vol] 8.0 10*3/uL Normal 3.5-11.3 [facility] Comment on above: Performed By: #### B MP, CDP #### [facility] [address] [place] [address] [employer] Supervisor: Alexey Rob MD MRSA, DNA, Nasalon 3 Specimen Description .NASAL SWAB Normal [facility] Comment on above: Performed By: #### M RSANO #### [facility] [address] [place] [address] [employer] Supervisor: Jose Miguel Davis MD [facility] [address] [place] [address] [employer] Supervisor: Alexey Rob MD Type + Screenon 09-08-2023 Type + Screen Sample Expiration 10/06/2023,2359 Arm Band Number [id number] ABO/Rh(D) A POSITIVE Antibody Screen NEGATIVE Normal [facility] Comment on above: Performed By: #### T YS #### [facility] [address] [place] [address] [employer] Supervisor: Alexey Rob MD Office Visiton 08-29-2023 Follow-up visit [id number] Renee Mcneal 1950 F Date Provider Department Center 08/29/2023 [id number] MANUEL KIT [facility] Family History Problem Relation Age of Onset Coronary artery disease Father Heart attack Father Family Status - Relation Status Age at Father Level of Service:16325 SC OFFICE/OUTPATIENT ESTABLISHED MOD MDM 30-39 MIN Normal [facility] Alanine aminotransferase [En zymatic activity/volume] in Serum or PlasmaOrdered By: Rose Ohara on 08-09-2023 ALT [Catalytic activity/Vol] 13 U/L 7-52 [facility] Albumin [Mass/volume] in Ser um or Plasma by Bromocresol green (BCG) dye binding methoOrdered By: Rose Ohara on 08-09-2023 Albumin BCG dye [Mass/Vol] 4.5 g/dL 3.5-5.7 [facility] Alkaline phosphatase [Enzyma tic activity/volume] in Serum or PlasmaOrdered By: Rose Ohara on 08-09-2023 ALP [Catalytic activity/Vol] 48 U/L 34-104 [facility] Aspartate aminotransferase [ Enzymatic activity/volume] in Serum or PlasmaOrdered By: Rose Ohara on 08-09-2023 AST [Catalytic activity/Vol] 11 U/L 13-39 [facility] Basophils Auto (Bld) [#/Vol] Ordered By: Rose Ohara on 08-09-2023 Basophils (Bld) [#/Vol] 0.1 10*3/uL 0.0-0.2 [facility] Basophils/100 WBC Auto (Bld) Ordered By: Rose Ohara on 08-09-2023 Basophils/100 WBC (Bld) 1.3 % . [facility] Bilirubin.total [Mass/volume ] in Serum or PlasmaOrdered By: Rose Ohara on 08-09-2023 Bilirubin [Mass/Vol] 1.1 mg/dL 0.3-1.0 [facility] Calcium [Mass/volume] in Ser um or PlasmaOrdered By: Rose Ohara on 08-09-2023 Calcium [Mass/Vol] 9.8 mg/dL 8.6-10.3 [facility] Carbon dioxide, total [Moles /volume] in Serum or PlasmaOrdered By: Rose Ohara on 08-09-2023 CO2 [Moles/Vol] 27.9 mmol/L 21.0-31.0 [facility] [place] Chloride [Moles/volume] in S marlena or PlasmaOrdered By: Rose Ohara on 08-09-2023 Chloride [Moles/Vol] 104 mmol/L 98-107 [facility] Complete Blood Count Auto Di ffon 08-09-2023 Basophils (Bld) [#/Vol] 0.1 10*3/uL Normal 0.0-0.2 [facility] Comment on above: Result Comment: PERF ORMED BY: [facility] [address] [place] [id number] PATHOLOGIST MEDICAL SERVICES COORDINATOR SHEBA RICO M.D. Performed By: #### C BC, CMP, LDH ####[facility] [address] [place] [address] [facility] Basophils/100 WBC (Bld) 1.3 % Normal . [facility] Comment on above: Performed By: #### C BC, CMP, LDH ####[facility] [id number] [place] [id number] [facility] Eosinophils (Bld) [#/Vol] 0.1 10*3/uL Normal 0.0-0.45 [facility] Comment on above: Performed By: #### C BC, CMP, LDH ####[place] [id number] [facility] Eosinophils/100 WBC (Bld) 1.9 % Normal . [facility] Comment on above: Performed By: #### C BC, CMP, LDH ####[place] [id number] [facility] Erythrocyte distribution width (RBC) [Ratio] 14.5 % Normal 11.9-15.3 [facility] Comment on above: Performed By: #### C BC, CMP, LDH ####[place] [id number] [facility] Hematocrit (Bld) [Volume fraction] 41.7 % Normal 34.0-46.4 [facility] Comment on above: Performed By: #### C BC, CMP, LDH ####[place] [id number] [facility] Hemoglobin (Bld) [Mass/Vol] 13.6 g/dL Normal 11.8-15.4 [facility] Comment on above: Performed By: #### C BC, CMP, LDH ####[place] [id number] [facility] Lymphocytes (Bld) [#/Vol] 1.6 10*3/uL Normal 1.00-4.8 [facility] Comment on above: Performed By: #### C BC, CMP, LDH ####[place] [id number] [facility] Lymphocytes/100 WBC (Bld) 23.9 % Normal . [facility] Comment on above: Performed By: #### C BC, CMP, LDH ####[place] [id number] [facility] MCH (RBC) [Entitic mass] 29.6 pg Normal 24.7-34.3 [facility] Comment on above: Performed By: #### C BC, CMP, LDH ####[place] [id number] [facility] MCV (RBC) [Entitic vol] 90.7 fL Normal 80-100 [facility] Comment on above: Performed By: #### C BC, CMP, LDH ####[place] [id number] [facility] Mean Corpuscular HGB Conc 32.6 g/dL Normal 32.0-35.0 [facility] Comment on above: Performed By: #### C BC, CMP, LDH ####[address] Monocytes (Bld) [#/Vol] 0.6 10*3/uL Normal 0.0-0.8 [facility] Comment on above: Performed By: #### C BC, CMP, LDH ####[address] Monocytes/100 WBC (Bld) 9.2 % Normal . [facility] Comment on above: Performed By: #### C BC, CMP, LDH ####[address] Neutrophils (Bld) [#/Vol] 4.1 10*3/uL Normal 1.8-7.7 [facility] Comment on above: Performed By: #### C BC, CMP, LDH ####[place] [id number] [facility] Neutrophils/100 WBC (Bld) 63.7 % Normal . [facility] Comment on above: Performed By: #### C BC, CMP, LDH ####[place] [id number] [facility] NRBC% 0.1 /100{WBC} Normal 0-0.5 [facility] Comment on above: Performed By: #### C BC, CMP, LDH ####[place] [id number] [facility] Platelet mean volume (Bld) [Entitic vol] 7.8 fL Normal 6.3-10.7 [facility] Comment on above: Performed By: #### C BC, CMP, LDH ####[place] [id number] [facility] Platelets (Bld) [#/Vol] 200 10*3/uL Normal 150-450 [facility] Comment on above: Performed By: #### C BC, CMP, LDH ####[place] [address] [place] [id number] [facility] RBC (Bld) [#/Vol] 4.59 10*6/uL Normal 3.60-5.00 [facility] Comment on above: Performed By: #### C BC, CMP, LDH ####[place] [id number] [facility] WBC (Bld) [#/Vol] 6.5 10*3/uL Normal 3.8-11.6 [facility] Comment on above: Performed By: #### C BC, CMP, LDH ####[place] [id number] [facility] Comprehensive Metabolic Pane heladio 08-09-2023 Albumin [Mass/Vol] 4.5 g/dL Normal 3.5-5.7 [facility] Comment on above: Order Comment: pt is a fasting Performed By: #### C BC, CMP, LDH ####[place] [id number] [facility] Albumin/Globulin [Mass ratio] 1.8 {ratio} Normal [facility] Comment on above: Order Comment: pt is a fasting Performed By: #### C BC, CMP, LDH ####[place] [id number] [facility] ALP [Catalytic activity/Vol] 48 U/L Normal 34-104 [facility] Comment on above: Order Comment: pt is a fasting Performed By: #### C BC, CMP, LDH ####[place] [address] [place] [id number] [facility] ALT [Catalytic activity/Vol] 13 U/L Normal 7-52 [facility] Comment on above: Order Comment: pt is a fasting Performed By: #### C BC, CMP, LDH ####[place] [id number] [facility] Anion gap [Moles/Vol] 13.2 mmol/L Normal 6.0-15.0 [facility] Comment on above: Order Comment: pt is a fasting Performed By: #### C BC, CMP, LDH ####[place] [address] [place] [address] [facility] AST [Catalytic activity/Vol] 11 U/L Low 13-39 [facility] Comment on above: Order Comment: pt is a fasting Performed By: #### C BC, CMP, LDH ####[address] [address] [facility] Bilirubin [Mass/Vol] 1.1 mg/dL High 0.3-1.0 [facility] Comment on above: Order Comment: pt is a fasting Performed By: #### C BC, CMP, LDH ####[address] [address] [facility] Calcium [Mass/Vol] 9.8 mg/dL Normal 8.6-10.3 [facility] Comment on above: Order Comment: pt is a fasting Performed By: #### C BC, CMP, LDH ####[address] [address] [facility] Chloride [Moles/Vol] 104 mmol/L Normal 98-107 [facility] Comment on above: Order Comment: pt is a fasting Performed By: #### C BC, CMP, LDH ####[address] [address] [facility] CO2 [Moles/Vol] 27.9 mmol/L Normal 21.0-31.0 [facility] [place] Comment on above: Order Comment: pt is a fasting Performed By: #### C BC, CMP, LDH ####[address] [address] [facility] Creatinine [Mass/Vol] 0.86 mg/dL Normal 0.60-1.20 [facility] Comment on above: Order Comment: pt is a fasting Performed By: #### C BC, CMP, LDH ####[address] [address] [facility] Creatinine Clr Calc Pharmacy 64.19 [facility] Comment on above: Order Comment: pt is a fasting Performed By: #### C BC, CMP, LDH ####[place] [address] [place] [address] [facility] GFR/1.73 sq M.predicted MDRD (S/P/Bld) [Vol rate/Area] mL/min/{1.73_m2} [facility] Comment on above: Order Comment: pt is a fasting Performed By: #### C BC, CMP, LDH ####[place] [id number] [facility] Globulin (S) [Mass/Vol] 2.5 g/dL [facility] Comment on above: Order Comment: pt is a fasting Performed By: #### C BC, CMP, LDH ####[place] [id number] [facility] Glucose [Mass/Vol] 168 mg/dL High 70-100 [facility] Comment on above: Order Comment: pt is a fasting Result Comment: [facility] Glucose Reference Range is dependent on time and content of last meal. Glucose of more than 200 mg/dL in a nonstressed, ambulatory subject supports the diagnosis of Diabetes Mellitus. ADA recommended reference range Performed By: #### C BC, CMP, LDH ####[place] [id number] [facility] Potassium [Moles/Vol] 5.1 mmol/L Normal 3.5-5.1 [facility] Comment on above: Order Comment: pt is a fasting Performed By: #### C BC, CMP, LDH ####[place] [id number] [facility] Protein [Mass/Vol] 7.0 g/dL Normal 6.4-8.9 [facility] Comment on above: Order Comment: pt is a fasting Performed By: #### C BC, CMP, LDH ####[place] [id number] [facility] Sodium [Moles/Vol] 140 mmol/L Normal 136-145 [facility] Comment on above: Order Comment: pt is a fasting Performed By: #### C BC, CMP, LDH ####[place] [address] [place] [id number] [facility] Urea nitrogen [Mass/Vol] 26 mg/dL High 7-25 [facility] Comment on above: Order Comment: pt is a fasting Performed By: #### C BC, CMP, LDH ####[facility] [id number] [place] [id number] [facility] Creatinine [Mass/volume] in Serum or PlasmaOrdered By: Rose Ohara on 08-09-2023 Creatinine [Mass/Vol] 0.86 mg/dL 0.60-1.20 [facility] Eosinophils Auto (Bld) [#/Vo l]Ordered By: Rose Ohara on 08-09-2023 Eosinophils (Bld) [#/Vol] 0.1 10*3/uL 0.0-0.45 [facility] Eosinophils/100 WBC Auto (Bl d)Ordered By: Rose Ohara on 08-09-2023 Eosinophils/100 WBC (Bld) 1.9 % . [facility] Erythrocyte distribution wid th Auto (RBC) [Ratio]Ordered By: Rose Ohara on 08-09-2023 Erythrocyte distribution width (RBC) [Ratio] 14.5 % 11.9-15.3 [facility] Globulin Calc (S) [Mass/Vol] Ordered By: Rose Ohara on 08-09-2023 Globulin (S) [Mass/Vol] 2.5 g/dL [facility] Glucose [Mass/volume] in Ser um or PlasmaOrdered By: Rose Ohara on 08-09-2023 Glucose [Mass/Vol] 168 mg/dL 70-100 [facility] Comment on above: ADA recommended refe rence rangeRandom Glucose Reference Range is dependent on time and content of last meal. Glucose of more than 200 mg/dL in a nonstressed, ambulatory subject supports the diagnosis of Diabetes Mellitus. Hematocrit Auto (Bld) [Volum e fraction]Ordered By: Rose Ohara on 08-09-2023 Hematocrit (Bld) [Volume fraction] 41.7 % 34.0-46.4 [facility] Hemoglobin [Mass/volume] in BloodOrdered By: Rose Ohara on 08-09-2023 Hemoglobin (Bld) [Mass/Vol] 13.6 g/dL 11.8-15.4 [facility] LDH Lactate Dehydrogenaseon 08-09-2023 LDH Lactate Dehydrogenase 135 U/L Low 140-271 [facility] Comment on above: Order Comment: pt is a fasting Result Comment: PERF ORMED BY: [facility] [address] [place] [address] PATHOLOGIST MEDICAL SERVICES COORDINATOR SHEBA RICO M.D. Performed By: #### C BC, CMP, LDH ####[facility] [id number] [place] [id number] [facility] Lactate dehydrogenase [Enzym atic activity/volume] in Serum or Plasma by Lactate to pyOrdered By: Rose Ohara on 08-09-2023 LDH Lactate to pyruvate reaction [Catalytic activity/Vol] 135 U/L 140-271 [facility] Leukocytes [#/volume] correc jin for nucleated erythrocytes in Blood by Automated counOrdered By: Rose Ohara on 08-09-2023 WBC corrected for nucl RBC Auto (Bld) [#/Vol] 6.5 10*3/uL 3.8-11.6 [facility] Lymphocytes Auto (Bld) [#/Vo l]Ordered By: Rose Ohara on 08-09-2023 Lymphocytes (Bld) [#/Vol] 1.6 10*3/uL 1.00-4.8 [facility] Lymphocytes/100 WBC Auto (Bl d)Ordered By: Rose Ohara on 08-09-2023 Lymphocytes/100 WBC (Bld) 23.9 % . [facility] MCH Auto (RBC) [Entitic mass ]Ordered By: Rose Ohara on 08-09-2023 MCH (RBC) [Entitic mass] 29.6 pg 24.7-34.3 [facility] MCHC Auto (RBC) [Mass/Vol]Or dered By: Rose Ohara on 08-09-2023 MCHC (RBC) [Mass/Vol] 32.6 g/dL 32.0-35.0 [facility] MCV Auto (RBC) [Entitic vol] Ordered By: Rose Ohara on 08-09-2023 MCV (RBC) [Entitic vol] 90.7 fL 80-100 [facility] Monocytes Auto (Bld) [#/Vol] Ordered By: Rose Ohara on 08-09-2023 Monocytes (Bld) [#/Vol] 0.6 10*3/uL 0.0-0.8 [facility] Monocytes/100 WBC Auto (Bld) Ordered By: Rose Ohara on 08-09-2023 Monocytes/100 WBC (Bld) 9.2 % . [facility] Neutrophils Auto (Bld) [#/Vo l]Ordered By: Rose Ohara on 08-09-2023 Neutrophils (Bld) [#/Vol] 4.1 10*3/uL 1.8-7.7 [facility] Neutrophils/100 WBC Auto (Bl d)Ordered By: Rose Ohara on 08-09-2023 Neutrophils/100 WBC (Bld) 63.7 % . [facility] No Panel InformationOrdered By: Rose Ohara on 08-09-2023 Estimated GFR (CKD-EPI) > 60.0 mL/Min [facility] Creatinine Clearance (Chem 64.19 [facility] Nucleated erythrocytes [Pres ence] in Blood by Automated countOrdered By: Rose Ohara on 08-09-2023 Nucleated RBC Auto Ql (Bld) 0.1 /100{WBC} 0-0.5 [facility] Platelet mean volume Auto (B ld) [Entitic vol]Ordered By: Rose Ohara on 08-09-2023 Platelet mean volume (Bld) [Entitic vol] 7.8 fL 6.3-10.7 [facility] Platelets Auto (Bld) [#/Vol] Ordered By: Rose Ohara on 08-09-2023 Platelets (Bld) [#/Vol] 200 10*3/uL 150-450 [facility] Potassium [Moles/volume] in Serum or PlasmaOrdered By: Rose Ohara on 08-09-2023 Potassium [Moles/Vol] 5.1 mmol/L 3.5-5.1 [facility] Protein [Mass/volume] in Ser um or PlasmaOrdered By: Rose Ohara on 08-09-2023 Protein [Mass/Vol] 7.0 g/dL 6.4-8.9 [facility] RBC Auto (Bld) [#/Vol]Ordere d By: Rose Ohara on 08-09-2023 RBC (Bld) [#/Vol] 4.59 10*6/uL 3.60-5.00 [facility] Serum or plasma albumin/glob ulin mass ratioOrdered By: Rose Ohara on 08-09-2023 Albumin/Globulin [Mass ratio] 1.8 {ratio} [facility] Serum or plasma anion gap de terminationOrdered By: Rose Ohara on 08-09-2023 Anion gap [Moles/Vol] 13.2 mmol/L 6.0-15.0 [facility] Sodium [Moles/volume] in Ser um or PlasmaOrdered By: Rose Ohara on 08-09-2023 Sodium [Moles/Vol] 140 mmol/L 136-145 [facility] US extremity nonvascularon 1 US extremity nonvascular [facility] [place] [address] Ultrasound Report Signed Patient: Tosha Mcneal MR#: [id number] : 1950 Acct:[id number] Age/Sex: 72 / F ADM Date: 08/09/23 Loc: Room: Type: [facility] RCR Attending Dr: Rose Ohara MD Ordering [...] Jenni Sands M.D.08/09/2023 1:36 PM Dictation Location: [place] [address] Tech: Miir Pastrana Transcribed By: SRUTHI 08/09/231335 Dictated By: Jenni Sands MD 08/09/231332 Signed By: 08/09/231335 Normal [facility] Urea nitrogen [Mass/volume] in Serum or PlasmaOrdered By: Rose Ohara on 08-09-2023 Urea nitrogen [Mass/Vol] 26 mg/dL 7-25 [facility] WBC Auto (Bld) [#/Vol]Ordere d By: Rose Ohara on 08-09-2023 WBC (Bld) [#/Vol] 6.5 10*3/uL 3.8-11.6 [facility] [facility] Office Visiton 05-17-2023 Follow-up visit [id number] Renee Mcneal 1950 F Date Provider Department Center 05/17/2023 [id number] MANUEL CARD [facility] Family History Problem Relation Age of Onset Coronary artery disease Father Heart attack Father Family Status - Relation Status Age at Father Level of Service:67271 [place] OFFICE/OUTPATIENT ESTABLISHED MOD MDM 30-39 MIN Normal [facility] Alanine aminotransferase [En zymatic activity/volume] in Serum or PlasmaOrdered By: Rose Ohara on 04-12-2023 ALT [Catalytic activity/Vol] 17 U/L 7-52 [facility] Albumin [Mass/volume] in Ser um or Plasma by Bromocresol green (BCG) dye binding methoOrdered By: Rose Ohara on 04-12-2023 Albumin BCG dye [Mass/Vol] 4.1 g/dL 3.5-5.7 [facility] Alkaline phosphatase [Enzyma tic activity/volume] in Serum or PlasmaOrdered By: Rose Ohara on 04-12-2023 ALP [Catalytic activity/Vol] 57 U/L 34-104 [facility] Aspartate aminotransferase [ Enzymatic activity/volume] in Serum or PlasmaOrdered By: Rose Ohara on 04-12-2023 AST [Catalytic activity/Vol] 16 U/L 13-39 [facility] Basophils Auto (Bld) [#/Vol] Ordered By: Rose Ohara on 04-12-2023 Basophils (Bld) [#/Vol] 0.1 10*3/uL 0.0-0.2 [facility] Basophils/100 WBC Auto (Bld) Ordered By: Rose Ohara on 04-12-2023 Basophils/100 WBC (Bld) 0.9 % . [facility] Bilirubin.total [Mass/volume ] in Serum or PlasmaOrdered By: Rose Ohara on 04-12-2023 Bilirubin [Mass/Vol] 0.9 mg/dL 0.3-1.0 [facility] Calcium [Mass/volume] in Ser um or PlasmaOrdered By: Rose Ohara on 04-12-2023 Calcium [Mass/Vol] 9.1 mg/dL 8.6-10.3 [facility] Carbon dioxide, total [Moles /volume] in Serum or PlasmaOrdered By: Rose Ohara on 04-12-2023 CO2 [Moles/Vol] 27.2 mmol/L 21.0-31.0 [facility] [place] Chloride [Moles/volume] in S marlena or PlasmaOrdered By: Rose Ohara on 04-12-2023 Chloride [Moles/Vol] 102 mmol/L 98-107 [facility] Complete Blood Count Auto Di ffon 04-12-2023 Basophils (Bld) [#/Vol] 0.1 10*3/uL Normal 0.0-0.2 [facility] Comment on above: Result Comment: PERF ORMED BY: [place] [address] PATHOLOGIST MEDICAL SERVICES COORDINATOR SHEBA RICO M.D. Performed By: #### C BC, LDH, CMP #### [address] Basophils/100 WBC (Bld) 0.9 % Normal . [facility] Comment on above: Performed By: #### C BC, LDH, CMP #### [facility] [address] Eosinophils (Bld) [#/Vol] 0.2 10*3/uL Normal 0.0-0.45 [facility] Comment on above: Performed By: #### C BC, LDH, CMP #### [address] Eosinophils/100 WBC (Bld) 2.2 % Normal . [facility] Comment on above: Performed By: #### C BC, LDH, CMP #### [address] Erythrocyte distribution width (RBC) [Ratio] 14.7 % Normal 11.9-15.3 [facility] Comment on above: Performed By: #### C BC, LDH, CMP #### [address] Hematocrit (Bld) [Volume fraction] 41.4 % Normal 34.0-46.4 [facility] Comment on above: Performed By: #### C BC, LDH, CMP #### [address] Hemoglobin (Bld) [Mass/Vol] 13.5 g/dL Normal 11.8-15.4 [facility] Comment on above: Performed By: #### C BC, LDH, CMP #### [address] Lymphocytes (Bld) [#/Vol] 1.8 10*3/uL Normal 1.00-4.8 [facility] Comment on above: Performed By: #### C BC, LDH, CMP #### [address] Lymphocytes/100 WBC (Bld) 26.0 % Normal . [facility] Comment on above: Performed By: #### C BC, LDH, CMP #### [address] MCH (RBC) [Entitic mass] 29.3 pg Normal 24.7-34.3 [facility] Comment on above: Performed By: #### C BC, LDH, CMP #### [address] MCV (RBC) [Entitic vol] 89.4 fL Normal 80-100 [facility] Comment on above: Performed By: #### C BC, LDH, CMP #### [place] [id number] [place] Mean Corpuscular HGB Conc 32.7 g/dL Normal 32.0-35.0 [facility] Comment on above: Performed By: #### C BC, LDH, CMP #### [facility] [address] Monocytes (Bld) [#/Vol] 0.6 10*3/uL Normal 0.0-0.8 [facility] Comment on above: Performed By: #### C BC, LDH, CMP #### [facility] [address] [place] [address] [place] Monocytes/100 WBC (Bld) 8.6 % Normal . [facility] Comment on above: Performed By: #### C BC, LDH, CMP #### [address] Neutrophils (Bld) [#/Vol] 4.3 10*3/uL Normal 1.8-7.7 [facility] Comment on above: Performed By: #### C BC, LDH, CMP #### [address] Neutrophils/100 WBC (Bld) 62.3 % Normal . [facility] Comment on above: Performed By: #### C BC, LDH, CMP #### [address] NRBC% 0.1 /100{WBC} Normal 0-0.5 [facility] Comment on above: Performed By: #### C BC, LDH, CMP #### [facility] [address] [place] [address] [place] Platelet mean volume (Bld) [Entitic vol] 8.3 fL Normal 6.3-10.7 [facility] Comment on above: Performed By: #### C BC, LDH, CMP #### [facility] [address] [place] [address] [place] Platelets (Bld) [#/Vol] 197 10*3/uL Normal 150-450 [facility] Comment on above: Performed By: #### C BC, LDH, CMP #### [facility] [address] RBC (Bld) [#/Vol] 4.62 10*6/uL Normal 3.60-5.00 [facility] Comment on above: Performed By: #### C BC, LDH, CMP #### [facility] [address] WBC (Bld) [#/Vol] 6.9 10*3/uL Normal 3.8-11.6 [facility] Comment on above: Performed By: #### C BC, LDH, CMP #### [facility] [address] Comprehensive Metabolic Pane heladio 04-12-2023 Albumin [Mass/Vol] 4.1 g/dL Normal 3.5-5.7 [facility] Comment on above: Performed By: #### C BC, LDH, CMP #### [address] Albumin/Globulin [Mass ratio] 1.6 {ratio} Normal [facility] Comment on above: Performed By: #### C BC, LDH, CMP #### [address] ALP [Catalytic activity/Vol] 57 U/L Normal 34-104 [facility] Comment on above: Performed By: #### C BC, LDH, CMP #### [address] ALT [Catalytic activity/Vol] 17 U/L Normal 7-52 [facility] Comment on above: Performed By: #### C BC, LDH, CMP #### [address] Anion gap [Moles/Vol] 15.6 mmol/L High 6.0-15.0 [facility] Comment on above: Performed By: #### C BC, LDH, CMP #### [address] AST [Catalytic activity/Vol] 16 U/L Normal 13-39 [facility] Comment on above: Performed By: #### C BC, LDH, CMP #### [facility] [address] [place] [address] [place] Bilirubin [Mass/Vol] 0.9 mg/dL Normal 0.3-1.0 [facility] Comment on above: Performed By: #### C BC, LDH, CMP #### [facility] [address] [place] [address] [place] Calcium [Mass/Vol] 9.1 mg/dL Normal 8.6-10.3 [facility] Comment on above: Performed By: #### C BC, LDH, CMP #### [facility] [address] [place] [address] [place] Chloride [Moles/Vol] 102 mmol/L Normal 98-107 [facility] Comment on above: Performed By: #### C BC, LDH, CMP #### [facility] [address] CO2 [Moles/Vol] 27.2 mmol/L Normal 21.0-31.0 [facility] [place] Comment on above: Performed By: #### C BC, LDH, CMP #### [facility] [address] [place] [address] [place] Creatinine [Mass/Vol] 1.01 mg/dL Normal 0.60-1.20 [facility] Comment on above: Performed By: #### C BC, LDH, CMP #### [facility] [address] [place] [address] [place] Creatinine Clr Calc Pharmacy 54.77 [facility] Comment on above: Performed By: #### C BC, LDH, CMP #### [facility] [address] [place] [address] [place] GFR/1.73 sq M.predicted MDRD (S/P/Bld) [Vol rate/Area] 58.780 mL/min/{1.73_m2} [facility] Comment on above: Performed By: #### C BC, LDH, CMP #### [facility] [address] [place] [address] [place] Globulin (S) [Mass/Vol] 2.6 g/dL [facility] Comment on above: Performed By: #### C BC, LDH, CMP #### [facility] [address] [place] [address] [place] Glucose [Mass/Vol] 203 mg/dL High 70-100 [facility] Comment on above: Result Comment: [place] Glucose Reference Range is dependent on time and content of last meal. Glucose of more than 200 mg/dL in a nonstressed, ambulatory subject supports the diagnosis of Diabetes Mellitus. ADA recommended reference range Performed By: #### C BC, LDH, CMP #### [facility] [address] Potassium [Moles/Vol] 4.8 mmol/L Normal 3.5-5.1 [facility] Comment on above: Performed By: #### C BC, LDH, CMP #### [facility] [address] Protein [Mass/Vol] 6.7 g/dL Normal 6.4-8.9 [facility] Comment on above: Performed By: #### C BC, LDH, CMP #### [facility] [address] [place] [address] [place] Sodium [Moles/Vol] 140 mmol/L Normal 136-145 [facility] Comment on above: Performed By: #### C BC, LDH, CMP #### [facility] [address] [place] [address] [place] Urea nitrogen [Mass/Vol] 34 mg/dL High 7-25 [facility] Comment on above: Performed By: #### C BC, LDH, CMP #### [facility] [address] [place] [address] [place] Creatinine [Mass/volume] in Serum or PlasmaOrdered By: Rose Ohara on 04-12-2023 Creatinine [Mass/Vol] 1.01 mg/dL 0.60-1.20 [facility] Eosinophils Auto (Bld) [#/Vo l]Ordered By: Rose Ohara on 04-12-2023 Eosinophils (Bld) [#/Vol] 0.2 10*3/uL 0.0-0.45 [facility] Eosinophils/100 WBC Auto (Bl d)Ordered By: Rose Ohara on 04-12-2023 Eosinophils/100 WBC (Bld) 2.2 % . [facility] Erythrocyte distribution wid th Auto (RBC) [Ratio]Ordered By: Rose Ohara on 04-12-2023 Erythrocyte distribution width (RBC) [Ratio] 14.7 % 11.9-15.3 [facility] Globulin Calc (S) [Mass/Vol] Ordered By: Rose Ohara on 04-12-2023 Globulin (S) [Mass/Vol] 2.6 g/dL [facility] Glucose [Mass/volume] in Ser um or PlasmaOrdered By: Rose Ohara on 04-12-2023 Glucose [Mass/Vol] 203 mg/dL 70-100 [facility] Comment on above: ADA recommended refe rence rangeRandom Glucose Reference Range is dependent on time and content of last meal. Glucose of more than 200 mg/dL in a nonstressed, ambulatory subject supports the diagnosis of Diabetes Mellitus. Hematocrit Auto (Bld) [Volum e fraction]Ordered By: Rose Ohara on 04-12-2023 Hematocrit (Bld) [Volume fraction] 41.4 % 34.0-46.4 [facility] Hemoglobin [Mass/volume] in BloodOrdered By: Rose Ohara on 04-12-2023 Hemoglobin (Bld) [Mass/Vol] 13.5 g/dL 11.8-15.4 [facility] LDH Lactate Dehydrogenaseon 04-12-2023 LDH Lactate Dehydrogenase 120 U/L Low 140-271 [facility] Comment on above: Result Comment: PERF ORMED BY: [place] [address] PATHOLOGIST MEDICAL SERVICES COORDINATOR SHEBA RICO M.D. Performed By: #### C BC, LDH, CMP #### [address] Lactate dehydrogenase [Enzym atic activity/volume] in Serum or Plasma by Lactate to pyOrdered By: Rose Ohara on 04-12-2023 LDH Lactate to pyruvate reaction [Catalytic activity/Vol] 120 U/L 140-271 [facility] Leukocytes [#/volume] correc jin for nucleated erythrocytes in Blood by Automated counOrdered By: Rose Ohara on 04-12-2023 WBC corrected for nucl RBC Auto (Bld) [#/Vol] 6.9 10*3/uL 3.8-11.6 [facility] Lymphocytes Auto (Bld) [#/Vo l]Ordered By: Rose Ohara on 04-12-2023 Lymphocytes (Bld) [#/Vol] 1.8 10*3/uL 1.00-4.8 [facility] Lymphocytes/100 WBC Auto (Bl d)Ordered By: Rose Ohara on 04-12-2023 Lymphocytes/100 WBC (Bld) 26.0 % . [facility] MCH Auto (RBC) [Entitic mass ]Ordered By: Rose Ohara on 04-12-2023 MCH (RBC) [Entitic mass] 29.3 pg 24.7-34.3 [facility] MCHC Auto (RBC) [Mass/Vol]Or dered By: Rose Ohara on 04-12-2023 MCHC (RBC) [Mass/Vol] 32.7 g/dL 32.0-35.0 [facility] MCV Auto (RBC) [Entitic vol] Ordered By: Rose Ohara on 04-12-2023 MCV (RBC) [Entitic vol] 89.4 fL 80-100 [facility] Monocytes Auto (Bld) [#/Vol] Ordered By: Rose Ohara on 04-12-2023 Monocytes (Bld) [#/Vol] 0.6 10*3/uL 0.0-0.8 [facility] Monocytes/100 WBC Auto (Bld) Ordered By: Rose Ohara on 04-12-2023 Monocytes/100 WBC (Bld) 8.6 % . [facility] Neutrophils Auto (Bld) [#/Vo l]Ordered By: Rose Ohara on 04-12-2023 Neutrophils (Bld) [#/Vol] 4.3 10*3/uL 1.8-7.7 [facility] Neutrophils/100 WBC Auto (Bl d)Ordered By: Rose Ohara on 04-12-2023 Neutrophils/100 WBC (Bld) 62.3 % . [facility] No Panel InformationOrdered By: Rose Ohara on 04-12-2023 Estimated GFR (CKD-EPI) 58.780 mL/Min [facility] Creatinine Clearance (Chem 54.77 [facility] Nucleated erythrocytes [Pres ence] in Blood by Automated countOrdered By: Rose Ohara on 04-12-2023 Nucleated RBC Auto Ql (Bld) 0.1 /100{WBC} 0-0.5 [facility] Platelet mean volume Auto (B ld) [Entitic vol]Ordered By: Rose Ohara on 04-12-2023 Platelet mean volume (Bld) [Entitic vol] 8.3 fL 6.3-10.7 [facility] Platelets Auto (Bld) [#/Vol] Ordered By: Rose Ohara on 04-12-2023 Platelets (Bld) [#/Vol] 197 10*3/uL 150-450 [facility] Potassium [Moles/volume] in Serum or PlasmaOrdered By: Rose Ohara on 04-12-2023 Potassium [Moles/Vol] 4.8 mmol/L 3.5-5.1 [facility] Protein [Mass/volume] in Ser um or PlasmaOrdered By: Rose Ohara on 04-12-2023 Protein [Mass/Vol] 6.7 g/dL 6.4-8.9 [facility] RBC Auto (Bld) [#/Vol]Ordere d By: Rose Ohara on 04-12-2023 RBC (Bld) [#/Vol] 4.62 10*6/uL 3.60-5.00 [facility] Serum or plasma albumin/glob ulin mass ratioOrdered By: Rose Ohara on 04-12-2023 Albumin/Globulin [Mass ratio] 1.6 {ratio} [facility] Serum or plasma anion gap de terminationOrdered By: Rose Ohara on 04-12-2023 Anion gap [Moles/Vol] 15.6 mmol/L 6.0-15.0 [facility] Sodium [Moles/volume] in Ser um or PlasmaOrdered By: Rose Ohara on 04-12-2023 Sodium [Moles/Vol] 140 mmol/L 136-145 [facility] Urea nitrogen [Mass/volume] in Serum or PlasmaOrdered By: Rose Ohara on 04-12-2023 Urea nitrogen [Mass/Vol] 34 mg/dL 7-25 [facility] WBC Auto (Bld) [#/Vol]Ordere d By: Rose Ohara on 04-12-2023 WBC (Bld) [#/Vol] 6.9 10*3/uL 3.8-11.6 [facility] US extremity nonvascularon 0 04-07-2023 US extremity nonvascular [facility] [place] [address] Ultrasound Report Signed Patient: Tosha Mcneal MR#: [id number] : 1950 Acct:[id number] Age/Sex: 72 / F ADM Date: 04/07/23 [...] study. Impression dictated by: Miki Kruse Jr., D.OPablo04/07/2023 8:57 AM Dictation Location: [facility] Tech: Valerie Frankel Transcribed By: SRUTHI 04/07/23 0857 Dictated By: Miki Kruse Jr, DO 04/07/23 0844 Signed By: 04/07/23 0857 Normal [facility] LIPID PROFILEon 03-03-2023 CHOL-HDL RATIO NORM SEE BELOW Normal [facility] Comment on above: Result Comment: 3.3 - 4.4 LOW RISK 4.4 - 7.1 AVERAGE RISK 7.1 - 11.0 MODERATE RISK >11.0 HIGH RISK Performed By: #### L IPID #### [facility] [address] [place] [address] [address] Claudia Branch Cholesterol [Mass/Vol] 129 mg/dL Normal <=200 [facility] Comment on above: Performed By: #### L IPID #### [facility] [address] [place] [address] [address] Claudia Branch Cholesterol in HDL [Mass/Vol] 43 mg/dL Normal 40-60 [facility] Comment on above: Performed By: #### L IPID #### [facility] [address] [place] [address] Dr. Claudia Branch Cholesterol in LDL [Mass/Vol] 34.4 mg/dL Normal [facility] Comment on above: Performed By: #### L IPID #### [facility] [address] [place] [address] Dr. Claudia Branch Cholesterol.total/Chol esterol in HDL [Mass ratio] 3.0 {ratio} Normal [facility] Comment on above: Performed By: #### L IPID #### [facility] [address] [place] [address] Dr. Claudia Branch HDL NORMAL > or = 60 mg/dl - LO W CARDIOVASCULAR RISK <40 mg/dl - HIGH CARDIOVASCULAR RISK Normal [facility] Comment on above: Performed By: #### L IPID #### [facility] [address] [place] [address] Dr. Claudia Branch LDL CALC NORMAL SEE BELOW Normal [facility] Comment on above: Result Comment: <100 mg/dl OPTIMAL 100 - 129 mg/dl NEAR OR ABOVE OPTIMAL 130 - 159 mg/dl BORDERLINE HIGH 160 - 189 mg/dl HIGH >190 mg/dl VERY HIGH Performed By: #### L IPID #### [facility] [address] [place] [address] Dr. Claudia Branch Triglyceride [Mass/Vol] 258 mg/dL Critically high <=150 [facility] Comment on above: Performed By: #### L IPID #### [facility] [address] [place] [address] Dr. Claudia Branch VLDL CALC 51.6 mg/dL Normal [facility] Comment on above: Performed By: #### L IPID #### [facility] [address] [place] [address] Dr. Claudia Branch PROF 14(COMP METB)on 023 Albumin [Mass/Vol] 3.7 g/dL Normal 3.4-5.0 [facility] Comment on above: Performed By: #### C MP #### [facility] [address] [place] [address] Dr. Claudia Branch Albumin/Globulin [Mass ratio] 1.1 {ratio} Normal [facility] Comment on above: Performed By: #### C MP #### [facility] [address] [place] [address] Dr. Claudia Branch ALP [Catalytic activity/Vol] 66 U/L Normal 46-116 [facility] Comment on above: Performed By: #### C MP #### [facility] [address] [place] [address] Dr. Claudia Branch ALT [Catalytic activity/Vol] 22 U/L Normal 14-59 [facility] Comment on above: Performed By: #### C MP #### [facility] [address] [place] [address] Dr. Claudia Branch Anion gap [Moles/Vol] 15.4 mmol/L Normal [facility] Comment on above: Performed By: #### C MP #### [facility] [address] [place] [address] Dr. Claudia Branch AST [Catalytic activity/Vol] 14 U/L Critically low 15-37 [facility] Comment on above: Performed By: #### C MP #### [facility] [address] [place] [address] Dr. Claudia Branch Bilirubin [Mass/Vol] 1.0 mg/dL Normal 0.2-1.0 [facility] Comment on above: Performed By: #### C MP #### [facility] [address] [place] [address] Dr. Claudia Branch Calcium [Mass/Vol] 9.4 mg/dL Normal 8.5-10.1 [facility] Comment on above: Performed By: #### C MP #### [facility] [address] [address] [address] Claudia Branch Chloride [Moles/Vol] 102 mmol/L Normal 98-107 [facility] Comment on above: Performed By: #### C MP #### [facility] [address] [address] [address] Claudia Branch CO2 [Moles/Vol] 28.0 mmol/L Normal 21.0-32.0 [facility] Comment on above: Performed By: #### C MP #### [facility] [address] [place] [address] Dr. Claudia Branch Creatinine [Mass/Vol] 1.04 mg/dL Critically high 0.55-1.02 [facility] Comment on above: Performed By: #### C MP #### [facility] [address] [address] [address] Claudia Branch EGFR-AF GUATEMALAN >60 Normal >=60 [facility] Comment on above: Performed By: #### C MP #### [facility] [address] [place] [address] Dr. Claudia Branch EGFR-NON AF GUATEMALAN 52 mL/min/1.73m2 Critically low >=60 [facility] Comment on above: Performed By: #### C MP #### [facility] [address] [address] [address] Claudia Branch Globulin (S) [Mass/Vol] 3.5 g/dL Normal [facility] Comment on above: Performed By: #### C MP #### [facility] [address] [address] [address] Claudia Branch Glucose [Mass/Vol] 174 mg/dL Critically high 74-106 [facility] Comment on above: Performed By: #### C MP #### [facility] [address] [address] [address] Claudia Branch Potassium [Moles/Vol] 5.4 mmol/L Critically high 3.5-5.1 [facility] Comment on above: Performed By: #### C MP #### [facility] [address] [address] [address] Claudia Branch Protein [Mass/Vol] 7.2 g/dL Normal 6.4-8.2 [facility] Comment on above: Performed By: #### C MP #### [facility] [address] [address] [address] Claudia Branch Sodium [Moles/Vol] 140 mmol/L Normal 136-145 [facility] Comment on above: Performed By: #### C MP #### [facility] [address] [address] [address] Claudia Branch Urea nitrogen [Mass/Vol] 26.0 mg/dL Critically high 7.0-18.0 [facility] Comment on above: Performed By: #### C MP #### [facility] [address] [address] [address] Claudia Branch Urea nitrogen/Creatinine [Mass ratio] 25.0 mg/mg Normal [facility] Comment on above: Performed By: #### C MP #### [facility] [address] [address] [address] Claudia Branch Estimated glomerular filtrat ion rate (GFR) non- AmericanOrdered By: Rose Ohara on 12-21-2022 GFR/1.73 sq M.predicted among non-blacks MDRD (S/P/Bld) [Vol rate/Area] > 60 mL/Min [facility] No Panel InformationOrdered By: Rose Ohara on 12-21-2022 Estimated GFR () > 60 mL/Min [facility] Comment on above: GFR estimated refere nce range: According to KDOQI guidelines, <60 ml/min/1.73m2 is sufficient to diagnose a patient with chronic kidney disease. Albumin [Mass/volume] in Ser um or PlasmaOrdered By: Rose Ohara on 09-22-2022 Albumin [Mass/Vol] 3.7 g/dL 3.2-5.5 [facility] Basophils Auto (Bld) [#/Vol] Ordered By: Rose Ohara on 09-22-2022 Basophils (Bld) [#/Vol] 0.1 10*3/uL 0.0-0.2 [facility] Basophils/100 WBC Auto (Bld) Ordered By: Rose Ohara on 09-22-2022 Basophils/100 WBC (Bld) 1.0 % . [facility] Creatinine and Glomerular fi ltration rate.predicted panel (S/P/Bld)Ordered By: Rose Ohara on 09-22-2022 Creatinine [Mass/Vol] 0.80 mg/dL 0.44-1.03 [facility] Eosinophils Auto (Bld) [#/Vo l]Ordered By: Rose Ohara on 09-22-2022 Eosinophils (Bld) [#/Vol] 0.1 10*3/uL 0.0-0.45 [facility] Eosinophils/100 WBC Auto (Bl d)Ordered By: Rose Ohara on 09-22-2022 Eosinophils/100 WBC (Bld) 2.0 % . [facility] Erythrocyte distribution wid th Auto (RBC) [Ratio]Ordered By: Rose Ohara on 09-22-2022 Erythrocyte distribution width (RBC) [Ratio] 14.7 % 11.9-15.3 [facility] Estimated glomerular filtrat ion rate (GFR) non- AmericanOrdered By: Rose Ohara on 09-22-2022 GFR/1.73 sq M.predicted among non-blacks MDRD (S/P/Bld) [Vol rate/Area] > 60 mL/Min [facility] Globulin Calc (S) [Mass/Vol] Ordered By: Rose Ohara on 09-22-2022 Globulin (S) [Mass/Vol] 2.8 g/dL [facility] Hematocrit Auto (Bld) [Volum e fraction]Ordered By: Rose Ohara on 09-22-2022 Hematocrit (Bld) [Volume fraction] 43.2 % 34.0-46.4 [facility] Hemoglobin [Mass/volume] in BloodOrdered By: Rose Ohara on 09-22-2022 Hemoglobin (Bld) [Mass/Vol] 13.9 g/dL 11.8-15.4 [facility] Laboratory - Hematology and Cell countsOrdered By: Rose Ohara on 09-22-2022 Nucleated RBC/100 WBC (Bld) [Ratio] 0.1 % 0-0.5 [facility] Lactate dehydrogenase measur ement (enzymatic activity/volume)Ordered By: Rose Ohara on 09-22-2022 LDH (Unsp spec) [Catalytic activity/Vol] 106 U/L 45-190 [facility] Leukocytes [#/volume] in Blo od by Automated countOrdered By: Rose Ohara on 09-22-2022 WBC (Bld) [#/Vol] 6.9 10*3/uL 4.5-11.0 [facility] Lymphocytes Auto (Bld) [#/Vo l]Ordered By: Rose Ohara on 09-22-2022 Lymphocytes (Bld) [#/Vol] 1.5 10*3/uL 1.00-4.8 [facility] Lymphocytes/100 WBC Auto (Bl d)Ordered By: Rose Ohara on 09-22-2022 Lymphocytes/100 WBC (Bld) 21.6 % . [facility] MCH Auto (RBC) [Entitic mass ]Ordered By: Rose Ohara on 09-22-2022 MCH (RBC) [Entitic mass] 29.0 pg 24.7-34.3 [facility] MCHC Auto (RBC) [Mass/Vol]Or dered By: Rose Ohara on 09-22-2022 MCHC (RBC) [Mass/Vol] 32.2 g/dL 32.0-35.0 [facility] MCV Auto (RBC) [Entitic vol] Ordered By: Rose Ohara on 09-22-2022 MCV (RBC) [Entitic vol] 90.2 fL 80-100 [facility] Monocytes Auto (Bld) [#/Vol] Ordered By: Rose Ohara on 09-22-2022 Monocytes (Bld) [#/Vol] 0.7 10*3/uL 0.0-0.8 [facility] Monocytes/100 WBC Auto (Bld) Ordered By: Rose Ohara on 09-22-2022 Monocytes/100 WBC (Bld) 9.7 % . [facility] Neutrophils Auto (Bld) [#/Vo l]Ordered By: Rose Ohara on 09-22-2022 Neutrophils (Bld) [#/Vol] 4.5 10*3/uL 1.8-7.7 [facility] Neutrophils/100 WBC Auto (Bl d)Ordered By: Rose Ohara on 09-22-2022 Neutrophils/100 WBC (Bld) 65.7 % . [facility] No Panel InformationOrdered By: Rose Ohara on 09-22-2022 Estimated GFR () > 60 mL/Min [facility] Comment on above: GFR estimated refere nce range: According to KDOQI guidelines, <60 ml/min/1.73m2 is sufficient to diagnose a patient with chronic kidney disease. Pharmacy Creatinine Clearance (Chem 70.04 [facility] Platelet mean volume Auto (B ld) [Entitic vol]Ordered By: Rose Ohara on 09-22-2022 Platelet mean volume (Bld) [Entitic vol] 8.0 fL 6.3-10.7 [facility] Platelets Auto (Bld) [#/Vol] Ordered By: Rose Ohara on 09-22-2022 Platelets (Bld) [#/Vol] 227 10*3/uL 150-450 [facility] Protein [Mass/volume] in Ser um or PlasmaOrdered By: Rose Ohara on 09-22-2022 Protein [Mass/Vol] 6.5 g/dL 6.1-7.9 [facility] RBC Auto (Bld) [#/Vol]Ordere d By: Rose Ohara on 09-22-2022 RBC (Bld) [#/Vol] 4.79 10*6/uL 3.60-5.00 [facility] Serum or plasma alanine mari otransferase measurement without P-5'-P (enzymatic activiOrdered By: Rose Ohara on 09-22-2022 ALT No additional P-5'-P [Catalytic activity/Vol] 16 U/L 10-60 [facility] Serum or plasma albumin/glob ulin mass ratioOrdered By: Rose Ohara on 09-22-2022 Albumin/Globulin [Mass ratio] 1.3 {ratio} [facility] Serum or plasma alkaline danial sphatase measurement (enzymatic activity/volume)Ordered By: Rose Ohara on 09-22-2022 ALP [Catalytic activity/Vol] 45 U/L 32-92 [facility] Serum or plasma anion gap de terminationOrdered By: Rose Ohara on 09-22-2022 Anion gap [Moles/Vol] 11.0 mmol/L 6.0-15.0 [facility] Serum or plasma aspartate am inotransferase measurement (enzymatic activity/volume)Ordered By: Rose Ohara on 09-22-2022 AST [Catalytic activity/Vol] 17 U/L 10-42 [facility] Serum or plasma calcium kandi urement (mass/volume)Ordered By: Rose Ohara on 09-22-2022 Calcium [Mass/Vol] 9.2 mg/dL 8.2-10.2 [facility] Serum or plasma chloride florentino surement (moles/volume)Ordered By: Rose Ohara on 09-22-2022 Chloride [Moles/Vol] 99 mmol/L 95-114 [facility] Serum or plasma glucose kandi urement (mass/volume)Ordered By: Rose Ohara on 09-22-2022 Glucose [Mass/Vol] 113 mg/dL 70-100 [facility] Comment on above: ADA recommended refe rence rangeRandom Glucose Reference Range is dependent on time and content of last meal. Glucose of more than 200 mg/dL in a nonstressed, ambulatory subject supports the diagnosis of Diabetes Mellitus. Serum or plasma potassium me asurement (moles/volume)Ordered By: Rose Ohara on 09-22-2022 Potassium [Moles/Vol] 4.3 mmol/L 3.5-5.1 [facility] Serum or plasma sodium measu rement (moles/volume)Ordered By: Rose Ohara on 09-22-2022 Sodium [Moles/Vol] 135 mmol/L 136-146 [facility] Serum or plasma total biliru bin measurement (mass/volume)Ordered By: Rose Ohara on 09-22-2022 Bilirubin [Mass/Vol] 1.2 mg/dL 0.3-1.2 [facility] Serum or plasma total carbon dioxide measurement (moles/volume)Ordered By: Rose Ohara on 09-22-2022 CO2 [Moles/Vol] 29.3 mmol/L 22.0-30.0 [facility] Serum or plasma urea nitroge n measurement (mass/volume)Ordered By: Rose Ohara on 09-22-2022 Urea nitrogen [Mass/Vol] 16 mg/dL 07-30 [facility] GLYCOHEMOGLOBIN A1Con 2021 ADA RECOMMENDATION SEE BELOW Normal [facility] Comment on above: Result Comment: ADA RECOMMENDED LIMIT 4.0 - 6.0 ADA THERAPEUTIC TARGET < 7.0 ACTION SUGGESTED > 7.0 Performed By: #### A 1C #### [facility] [address] [address] [address] Claudia Branch Glucose [Mass/Vol] 169 mg/dL Normal [facility] Comment on above: Performed By: #### A 1C #### [facility] [address] [address] [address] Claudia Branch HbA1c (Bld) [Mass fraction] 7.5 % Critically high 4.5-6.2 [facility] Comment on above: Performed By: #### A 1C #### [facility] [address] [address] [address] Claudia Branch LIPID PROFILEon 08-26-2022 CHOL-HDL RATIO NORM SEE BELOW Normal [facility] Comment on above: Result Comment: 3.3 - 4.4 LOW RISK 4.4 - 7.1 AVERAGE RISK 7.1 - 11.0 MODERATE RISK >11.0 HIGH RISK Performed By: #### L IPID, CMP #### [facility] [address] [address] [address] Claudia Branch Cholesterol [Mass/Vol] 99 mg/dL Normal <=200 [facility] Comment on above: Performed By: #### L IPID, CMP #### [facility] [address] [address] [address] Claudia Branch Cholesterol in HDL [Mass/Vol] 45 mg/dL Normal 40-60 [facility] Comment on above: Performed By: #### L IPID, CMP #### [facility] [address] [address] [address] Claudia Branch Cholesterol in LDL [Mass/Vol] 22.6 mg/dL Normal [facility] Comment on above: Performed By: #### L IPID, CMP #### [facility] [address] [address] [address] Claudia Branch Cholesterol.total/Chol esterol in HDL [Mass ratio] 2.2 {ratio} Normal [facility] Comment on above: Performed By: #### L IPID, CMP #### [facility] [address] [address] [address] Claudia Branch HDL NORMAL > or = 60 mg/dl - LO W CARDIOVASCULAR RISK <40 mg/dl - HIGH CARDIOVASCULAR RISK Normal [facility] Comment on above: Performed By: #### L IPID, CMP #### [facility] [address] [address] [address] Claudia Branch LDL CALC NORMAL SEE BELOW Normal [facility] Comment on above: Result Comment: <100 mg/dl OPTIMAL 100 - 129 mg/dl NEAR OR ABOVE OPTIMAL 130 - 159 mg/dl BORDERLINE HIGH 160 - 189 mg/dl HIGH >190 mg/dl VERY HIGH Performed By: #### L IPID, CMP #### [facility] [address] [address] [address] Claudia Branch Triglyceride [Mass/Vol] 157 mg/dL Critically high <=150 [facility] Comment on above: Performed By: #### L IPID, CMP #### [facility] [address] [place] [address] Dr. Claudia Branch VLDL CALC 31.4 mg/dL Normal [facility] Comment on above: Performed By: #### L IPID, CMP #### [facility] [address] [address] [address] Claudia Branch PROF 14(COMP METB)on 022 Albumin [Mass/Vol] 3.9 g/dL Normal 3.4-5.0 [facility] Comment on above: Performed By: #### L IPID, CMP #### [facility] [address] [place] [address] Dr. Claudia Branch Albumin/Globulin [Mass ratio] 1.0 {ratio} Normal [facility] Comment on above: Performed By: #### L IPID, CMP #### [facility] [address] [address] [address] Claudia Branch ALP [Catalytic activity/Vol] 57 U/L Normal 46-116 [facility] Comment on above: Performed By: #### L IPID, CMP #### [facility] [address] [address] [address] Claudia Branch ALT [Catalytic activity/Vol] 22 U/L Normal 14-59 [facility] Comment on above: Performed By: #### L IPID, CMP #### [facility] [address] [address] [address] Claudia Branch Anion gap [Moles/Vol] 10.7 mmol/L Normal [facility] Comment on above: Performed By: #### L IPID, CMP #### [facility] [address] [address] [address] Claudia Branch AST [Catalytic activity/Vol] 11 U/L Critically low 15-37 [facility] Comment on above: Performed By: #### L IPID, CMP #### [facility] [address] [address] [address] Claudia Branch Bilirubin [Mass/Vol] 1.4 mg/dL Critically high 0.2-1.0 [facility] Comment on above: Performed By: #### L IPID, CMP #### [facility] [address] [address] [address] Claudia Branch Calcium [Mass/Vol] 9.3 mg/dL Normal 8.5-10.1 [facility] Comment on above: Performed By: #### L IPID, CMP #### [facility] [address] [address] [address] Claudia Branch Chloride [Moles/Vol] 103 mmol/L Normal 98-107 [facility] Comment on above: Performed By: #### L IPID, CMP #### [facility] [address] [address] [address] Claudia Branch CO2 [Moles/Vol] 31.2 mmol/L Normal 21.0-32.0 [facility] Comment on above: Performed By: #### L IPID, CMP #### [facility] [address] [address] [address] Claudia Branch Creatinine [Mass/Vol] 0.83 mg/dL Normal 0.55-1.02 [facility] Comment on above: Performed By: #### L IPID, CMP #### [facility] [address] [address] [address] Claudia Branch EGFR-AF GUATEMALAN >60 Normal >=60 [facility] Comment on above: Performed By: #### L IPID, CMP #### [facility] [address] [address] [address] Claudia Branch EGFR-NON AF GUATEMALAN >60 Normal >=60 [facility] Comment on above: Performed By: #### L IPID, CMP #### [facility] [address] [address] [address] Claudia Branch Globulin (S) [Mass/Vol] 3.6 g/dL Normal [facility] Comment on above: Performed By: #### L IPID, CMP #### [facility] [address] [address] [address] Claudia Branch Glucose [Mass/Vol] 114 mg/dL Critically high 74-106 [facility] Comment on above: Performed By: #### L IPID, CMP #### [facility] [address] [address] [address] Claudia Branch Potassium [Moles/Vol] 4.4 mmol/L Normal 3.5-5.1 [facility] Comment on above: Performed By: #### L IPID, CMP #### [facility] [address] [address] [address] Claudia Branch Protein [Mass/Vol] 7.5 g/dL Normal 6.4-8.2 [facility] Comment on above: Performed By: #### L IPID, CMP #### [facility] [address] [address] [address] Claudia Branch Sodium [Moles/Vol] 141 mmol/L Normal 136-145 [facility] Comment on above: Performed By: #### L IPID, CMP #### [facility] [address] [address] [address] Claudia Branch Urea nitrogen [Mass/Vol] 20.0 mg/dL Critically high 7.0-18.0 [facility] Comment on above: Performed By: #### L IPID, CMP #### [facility] [address] [address] [address] Claudia Branch Urea nitrogen/Creatinine [Mass ratio] 24.0 mg/mg Normal [facility] Comment on above: Performed By: #### L IPID, CMP #### [facility] [address] [place] [address] Dr. Claudia Branch GI PANEL (PCR)on 08-11-2022 Adenovirus F 40/41 Not detected Normal NOT DETECTED [facility] Comment on above: Performed By: #### G IPANEL #### [facility] [address] [place] [address] Dr. Claudia Branch Astrovirus Not detected Normal NOT DETECTED [facility] Comment on above: Performed By: #### G IPANEL #### [facility] [address] [place] [address] Dr. Claudia Branch C. Diff toxin A/B Detected Critically abnormal NOT DETECTED [facility] Comment on above: Performed By: #### G IPANEL #### [facility] [address] [place] [address] Dr. lCaudia Branch Campylobacter Not detected Normal NOT DETECTED [facility] Comment on above: Performed By: #### G IPANEL #### [facility] [address] [place] [address] Dr. Claudia Branch Cryptosporidium Not detected Normal NOT DETECTED [facility] Comment on above: Performed By: #### G IPANEL #### [facility] [address] [place] [address] Dr. Claudia Branch Cyclos. Cayetanensis Not detected Normal NOT DETECTED [facility] Comment on above: Performed By: #### G IPANEL #### [facility] [address] [place] [address] Dr. Claudia Branch E. Coli O157 Not Applicable Normal Not Applicable [facility] Comment on above: Performed By: #### G IPANEL #### [facility] [address] [place] [address] Dr. Claudia Branch E. histolytica Not detected Normal NOT DETECTED [facility] Comment on above: Performed By: #### G IPANEL #### [facility] [address] [place] [address] Dr. Claudia Branch EAEC Not detected Normal NOT DETECTED [facility] Comment on above: Performed By: #### G IPANEL #### [facility] [address] [place] [address] Dr. Claudia Branch EIEC Not detected Normal NOT DETECTED [facility] Comment on above: Performed By: #### G IPANEL #### [facility] [address] [place] [address] Dr. Claudia Branch EPEC Not detected Normal NOT DETECTED [facility] Comment on above: Performed By: #### G IPANEL #### [facility] [address] [place] [address] Dr. Claudia Branch ETEC Not detected Normal NOT DETECTED [facility] Comment on above: Performed By: #### G IPANEL #### [facility] [address] [place] [address] Dr. Claudia Dent. Lamblia Not detected Normal NOT DETECTED [facility] Comment on above: Performed By: #### G IPANEL #### [facility] [address] [place] [address] Dr. Claudia DOWDL CONTROLS PASSED Normal [facility] Comment on above: Performed By: #### G IPANEL #### [facility] [address] [place] [address] Dr. Claudia MCKAY DIEUDONNE HEADER GI PANEL BACTERIA Normal [facility] Comment on above: Performed By: #### G IPANEL #### [facility] [address] [place] [address] Dr. Claudia MCKAYHD ECOLI GI PANEL DIARRHEAGEN IC E.COLI / SHIGELLA Normal [facility] Comment on above: Performed By: #### G IPANEL #### [facility] [address] [place] [address] Dr. Claudia RAMIREZ INFO SEE BELOW Normal [facility] Comment on above: Result Comment: EAEC - Enteroaggregative E. Coli EPEC- Enteropathogenic E. Coli ETEC- Enterotoxigenic E. Coli lt/st STEC- Shigella-like toxin-producing E. Coli stx1/stx2 EIEC- Shigella/Enteroinvasive E. Coli Performed By: #### G IPANEL #### [facility] [address] [place] [address] Dr. Claudia RAMIREZ PARASITES GI PANEL PARASITES Normal [facility] Comment on above: Performed By: #### G IPANEL #### [facility] [address] [place] [address] Dr. Claudia RAMIREZ VIRUS GI PANEL VIRUSES Normal [facility] Comment on above: Performed By: #### G IPANEL #### [facility] [address] [place] [address] Dr. Claudia Branch Norovirus GI/GII Not detected Normal NOT DETECTED [facility] Comment on above: Performed By: #### G IPANEL #### [facility] [address] [place] [address] Dr. Claudia Branch P. Shigelloides Not detected Normal NOT DETECTED [facility] Comment on above: Performed By: #### G IPANEL #### [facility] [address] [place] [address] Dr. Claudia Branch Rotavirus A Not detected Normal NOT DETECTED [facility] Comment on above: Performed By: #### G IPANEL #### [facility] [address] [place] [address] Dr. Claudia Branch Salmonella Not detected Normal NOT DETECTED [facility] Comment on above: Performed By: #### G IPANEL #### [facility] [address] [place] [address] Dr. Claudia Branch Sapovirus Not detected Normal NOT DETECTED [facility] Comment on above: Performed By: #### G IPANEL #### [facility] [address] [place] [address] Dr. Claudia Branch STEC Not detected Normal NOT DETECTED The [facility] Comment on above: Performed By: #### G IPANEL #### [facility] [address] [address] [address] Claudia Branch Vibrio Not detected Normal NOT DETECTED [facility] Comment on above: Performed By: #### G IPANEL #### [facility] [address] [address] [address] Claudia Branch Vibrio Cholera Not detected Normal NOT DETECTED [facility] Comment on above: Performed By: #### G IPANEL #### [facility] [address] [address] [address] Claudia Branch Y. Enterocolitica Not detected Normal NOT DETECTED [facility] Comment on above: Performed By: #### G IPANEL #### [facility] [address] [address] [address] Claudia Branch Albumin [Mass/volume] in Ser um or PlasmaOrdered By: Rose Ohara on 06-29-2022 Albumin [Mass/Vol] 4.1 g/dL 3.2-5.5 [facility] Basophils Auto (Bld) [#/Vol] Ordered By: Rose Ohara on 06-29-2022 Basophils (Bld) [#/Vol] 0.1 10*3/uL 0.0-0.2 [facility] Basophils/100 WBC Auto (Bld) Ordered By: Rose Ohara on 06-29-2022 Basophils/100 WBC (Bld) 1.2 % . [facility] Blood hemoglobin measurement (mass/volume)Ordered By: Rose Ohara on 06-29-2022 Hemoglobin (Bld) [Mass/Vol] 15.0 g/dL 11.8-15.4 [facility] Blood leukocytes automated c ount (number/volume)Ordered By: Rose Ohara on 06-29-2022 WBC (Bld) [#/Vol] 8.4 10*3/uL 4.5-11.0 [facility] Creatinine and Glomerular fi ltration rate.predicted panel (S/P/Bld)Ordered By: Rose Ohara on 06-29-2022 Creatinine [Mass/Vol] 0.87 mg/dL 0.44-1.03 [facility] Eosinophils Auto (Bld) [#/Vo l]Ordered By: Rose Ohara on 06-29-2022 Eosinophils (Bld) [#/Vol] 0.3 10*3/uL 0.0-0.45 [facility] Eosinophils/100 WBC Auto (Bl d)Ordered By: Rose Ohara on 06-29-2022 Eosinophils/100 WBC (Bld) 3.7 % . [facility] Erythrocyte distribution wid th Auto (RBC) [Ratio]Ordered By: Rose Ohara on 06-29-2022 Erythrocyte distribution width (RBC) [Ratio] 14.9 % 11.9-15.3 [facility] Estimated glomerular filtrat ion rate (GFR) non- AmericanOrdered By: Rose Ohara on 06-29-2022 GFR/1.73 sq M.predicted among non-blacks MDRD (S/P/Bld) [Vol rate/Area] > 60 mL/Min [facility] Globulin Calc (S) [Mass/Vol] Ordered By: Rose Ohara on 06-29-2022 Globulin (S) [Mass/Vol] 3.0 g/dL [facility] Hematocrit Auto (Bld) [Volum e fraction]Ordered By: Rose Ohara on 06-29-2022 Hematocrit (Bld) [Volume fraction] 45.9 % 34.0-46.4 [facility] - Hematology and Cell countsOrdered By: Rose hOara on 06-29-2022 Nucleated RBC/100 WBC (Bld) [Ratio] 0.1 % 0-0.5 [facility] Lactate dehydrogenase measur ement (enzymatic activity/volume)Ordered By: Rose Ohara on 06-29-2022 LDH (Unsp spec) [Catalytic activity/Vol] 131 U/L 45-190 [facility] Lymphocytes Auto (Bld) [#/Vo l]Ordered By: Rose Ohara on 06-29-2022 Lymphocytes (Bld) [#/Vol] 1.6 10*3/uL 1.00-4.8 [facility] Lymphocytes/100 WBC Auto (Bl d)Ordered By: Rose Ohara on 06-29-2022 Lymphocytes/100 WBC (Bld) 18.8 % . [facility] MCH Auto (RBC) [Entitic mass ]Ordered By: Rose Ohara on 06-29-2022 MCH (RBC) [Entitic mass] 29.8 pg 24.7-34.3 [facility] MCHC Auto (RBC) [Mass/Vol]Or dered By: Rose Ohara on 06-29-2022 MCHC (RBC) [Mass/Vol] 32.8 g/dL 32.0-35.0 [facility] MCV Auto (RBC) [Entitic vol] Ordered By: Rose Ohara on 06-29-2022 MCV (RBC) [Entitic vol] 91.0 fL 80-100 [facility] Monocytes Auto (Bld) [#/Vol] Ordered By: Rose Ohara on 06-29-2022 Monocytes (Bld) [#/Vol] 0.8 10*3/uL 0.0-0.8 [facility] Monocytes/100 WBC Auto (Bld) Ordered By: Rose Ohara on 06-29-2022 Monocytes/100 WBC (Bld) 9.5 % . [facility] Neutrophils Auto (Bld) [#/Vo l]Ordered By: Rose Ohara on 06-29-2022 Neutrophils (Bld) [#/Vol] 5.6 10*3/uL 1.8-7.7 [facility] Neutrophils/100 WBC Auto (Bl d)Ordered By: Rose Ohara on 06-29-2022 Neutrophils/100 WBC (Bld) 66.8 % . [facility] No Panel InformationOrdered By: Rose Ohara on 06-29-2022 Estimated GFR () > 60 mL/Min [facility] Comment on above: GFR estimated refere nce range: According to KDOQI guidelines, <60 ml/min/1.73m2 is sufficient to diagnose a patient with chronic kidney disease. Pharmacy Creatinine Clearance (Chem 64.07 [facility] Platelet mean volume Auto (B ld) [Entitic vol]Ordered By: Rose Ohara on 06-29-2022 Platelet mean volume (Bld) [Entitic vol] 7.9 fL 6.3-10.7 [facility] Platelets Auto (Bld) [#/Vol] Ordered By: Rose Ohara on 06-29-2022 Platelets (Bld) [#/Vol] 226 10*3/uL 150-450 [facility] Protein [Mass/volume] in Ser um or PlasmaOrdered By: Rose Ohara on 06-29-2022 Protein [Mass/Vol] 7.1 g/dL 6.1-7.9 [facility] RBC Auto (Bld) [#/Vol]Ordere d By: Rose Ohara on 06-29-2022 RBC (Bld) [#/Vol] 5.04 10*6/uL 3.60-5.00 [facility] Serum or plasma alanine mari otransferase measurement without P-5'-P (enzymatic activiOrdered By: Rose Ohara on 06-29-2022 ALT No additional P-5'-P [Catalytic activity/Vol] 27 U/L 10-60 [facility] Serum or plasma albumin/glob ulin mass ratioOrdered By: Rose Ohara on 06-29-2022 Albumin/Globulin [Mass ratio] 1.4 {ratio} [facility] Serum or plasma alkaline danial sphatase measurement (enzymatic activity/volume)Ordered By: Rose Ohara on 06-29-2022 ALP [Catalytic activity/Vol] 56 U/L 32-92 [facility] Serum or plasma aspartate am inotransferase measurement (enzymatic activity/volume)Ordered By: Rose Ohara on 06-29-2022 AST [Catalytic activity/Vol] 26 U/L 10-42 [facility] Serum or plasma calcium kandi urement (mass/volume)Ordered By: Rose Ohara on 06-29-2022 Calcium [Mass/Vol] 10.2 mg/dL 8.2-10.2 [facility] Serum or plasma chloride florentino surement (moles/volume)Ordered By: Rose Ohara on 06-29-2022 Chloride [Moles/Vol] 102 mmol/L 95-114 [facility] Serum or plasma glucose kandi urement (mass/volume)Ordered By: Rose Ohara on 06-29-2022 Glucose [Mass/Vol] 130 mg/dL 70-100 [facility] Comment on above: ADA recommended refe rence range Random Glucose Reference Range is dependent on time and content of last meal. Glucose of more than 200 mg/dL in a nonstressed, ambulatory subject supports the diagnosis of Diabetes Mellitus. Serum or plasma potassium me asurement (moles/volume)Ordered By: Rose Ohara on 06-29-2022 Potassium [Moles/Vol] 4.9 mmol/L 3.5-5.1 [facility] Serum or plasma sodium measu rement (moles/volume)Ordered By: Rose Ohara on 06-29-2022 Sodium [Moles/Vol] 139 mmol/L 136-146 [facility] Serum or plasma total biliru bin measurement (mass/volume)Ordered By: Rose Ohara on 06-29-2022 Bilirubin [Mass/Vol] 1.2 mg/dL 0.3-1.2 [facility] Serum or plasma total carbon dioxide measurement (moles/volume)Ordered By: Rose Ohara on 06-29-2022 CO2 [Moles/Vol] 24.6 mmol/L 22.0-30.0 [facility] Serum or plasma urea nitroge n measurement (mass/volume)Ordered By: Rose Ohara on 06-29-2022 Urea nitrogen [Mass/Vol] 21 mg/dL 07-30 [facility] BNPon 04-29-2022 Natriuretic peptide B (Bld) [Mass/Vol] 280.0 pg/mL Normal <=900.0 [facility] Comment on above: Performed By: #### B FILM OR TAPE LIBRARIAN, BMP #### [facility] [address] [address] [address] Claudia Branch PROF CHEM 8 (BAS METB)on Anion gap [Moles/Vol] 17.9 mmol/L Normal [facility] Comment on above: Performed By: #### B FILM OR TAPE LIBRARIAN, BMP #### [facility] [address] [address] [address] Claudia Branch Calcium [Mass/Vol] 8.9 mg/dL Normal 8.5-10.1 [facility] Comment on above: Performed By: #### B FILM OR TAPE LIBRARIAN, BMP #### [facility] [address] [address] [address] Claudia Branch Chloride [Moles/Vol] 104 mmol/L Normal 98-107 [facility] Comment on above: Performed By: #### B FILM OR TAPE LIBRARIAN, BMP #### [facility] [address] [place] [address] Dr. Claudia Branch CO2 [Moles/Vol] 23.2 mmol/L Normal 21.0-32.0 [facility] Comment on above: Performed By: #### B FILM OR TAPE LIBRARIAN, BMP #### [facility] [address] [place] [address] Dr. Claudia Branch Creatinine [Mass/Vol] 1.04 mg/dL Critically high 0.55-1.02 [facility] Comment on above: Performed By: #### B FILM OR TAPE LIBRARIAN, BMP #### [facility] [address] [place] [address] Dr. Claudia Branch EGFR-AF GUATEMALAN >60 Normal >=60 [facility] Comment on above: Performed By: #### B FILM OR TAPE LIBRARIAN, BMP #### [facility] [address] [place] [address] Dr. Claudia Branch EGFR-NON AF GUATEMALAN 52 mL/min/1.73m2 Critically low >=60 [facility] Comment on above: Performed By: #### B FILM OR TAPE LIBRARIAN, BMP #### [facility] [address] [place] [address] Dr. Claudia Branch Glucose [Mass/Vol] 254 mg/dL Critically high 74-106 [facility] Comment on above: Performed By: #### B FILM OR TAPE LIBRARIAN, BMP #### [facility] [address] [place] [address] Dr. Claudia Branch Potassium [Moles/Vol] 5.1 mmol/L Normal 3.5-5.1 [facility] Comment on above: Performed By: #### B FILM OR TAPE LIBRARIAN, BMP #### [facility] [address] [place] [address] Dr. Claudia Branch Sodium [Moles/Vol] 140 mmol/L Normal 136-145 [facility] Comment on above: Performed By: #### B FILM OR TAPE LIBRARIAN, BMP #### [facility] [address] [place] [address] Dr. Claudia Branch Urea nitrogen [Mass/Vol] 25.0 mg/dL Critically high 7.0-18.0 [facility] Comment on above: Performed By: #### B FILM OR TAPE LIBRARIAN, BMP #### [facility] [address] [place] [address] Dr. Claudia Branch Urea nitrogen/Creatinine [Mass ratio] 24.0 mg/mg Normal [facility] Comment on above: Performed By: #### B FILM OR TAPE LIBRARIAN, BMP #### [facility] [address] [address] [address] Claudia Branch BASIC METABOLIC PANELon 060 Calcium [Mass/Vol] 9.7 mg/dL Normal 8.6-10.4 [facility] Comment on above: Performed By: #### 8 99, [id number] #### [facility] [address] [address] Cra: Baldemar Jones MD Chloride [Moles/Vol] 106 mmol/L Normal 98-110 [facility] Comment on above: Performed By: #### 8 99, 46076 #### [facility] [place] [address] Cra: Baldemar Jones MD CO2 [Moles/Vol] 24 mmol/L Normal 20-32 [facility] Comment on above: Performed By: #### 8 99, 55451 #### [facility] [place] [address] Cra: Baldemar Jones MD Creatinine [Mass/Vol] 1.32 mg/dL High 0.60-0.[address] [facility] Comment on above: Result Comment: For patients >49 years of age, the reference limit for Creatinine is approximately 13% higher for people identified as -Citizen Of [place]. Performed By: #### 8 99, 19315 #### [facility] [address] [place] [address] Cra: Baldemar Jones MD eGFR NON-AFR. GUATEMALAN 40 mL/min/1.73m2 Low > OR = 60 [facility] Comment on above: Performed By: #### 8 99, 48908 #### [facility] of [address], [address] [place] [address] Cra: Baldemar Jones MD GFR/1.73 sq M.predicted among blacks MDRD (S/P/Bld) [Vol rate/Area] 47 mL/min/{1.73_m2} Low > OR = 60 [facility] Comment on above: Performed By: #### 8 99, [id number] #### [facility] of [address], [address] [place] [address] Cra: Baldemar Jones MD Glucose [Mass/Vol] 99 mg/dL Normal 65-99 [facility] Comment on above: Result Comment: Fasting reference interval Performed By: #### 8 99, 37374 #### [facility] of [address], [address] [place] [address] Cra: Baldemar Jones MD Potassium [Moles/Vol] 4.6 mmol/L Normal 3.5-5.[address] [facility] Comment on above: Performed By: #### 8 99, 96179 #### [facility] of [address], [address] [place] [address] Cra: Baldemar Jones MD Sodium [Moles/Vol] 143 mmol/L Normal 135-146 [facility] Comment on above: Performed By: #### 8 99, 82589 #### [facility] of [address] [address] Cra: Baldemar Jones MD Urea nitrogen [Mass/Vol] 30 mg/dL High 7-25 [facility] Comment on above: Performed By: #### 8 99, 76020 #### [facility] of [address] [address] Cra: Baldemar Jones MD Urea nitrogen/Creatinine [Mass ratio] 23 mg/mg High 6- [facility] Comment on above: Performed By: #### 8 99, 27763 #### [facility] of [address], [address] [place] [address] Cra: Baldemar Jones MD TSHon 04-09-2022 TSH Qn 0.67 m[IU]/L Normal 0.40-4.50 [facility] Comment on above: Performed By: #### 8 99, 17958 #### [facility] [address] [facility], [address] [place] [address] Cra: Baldemar Jones MD Albumin [Mass/volume] in Ser um or PlasmaOrdered By: Rose Ohara on 03-25-2022 Albumin [Mass/Vol] 3.8 g/dL 3.2-5.5 [facility] Basophils Auto (Bld) [#/Vol] Ordered By: Rose Ohara on 03-25-2022 Basophils (Bld) [#/Vol] 0.1 10*3/uL 0.0-0.2 [facility] Basophils/100 WBC Auto (Bld) Ordered By: Rose Ohara on 03-25-2022 Basophils/100 WBC (Bld) 1.1 % [facility] Blood hemoglobin measurement (mass/volume)Ordered By: Rose Ohara on 03-25-2022 Hemoglobin (Bld) [Mass/Vol] 14.2 g/dL 11.8-15.4 [facility] Blood leukocytes automated c ount (number/volume)Ordered By: Rose Ohara on 03-25-2022 WBC (Bld) [#/Vol] 7.4 10*3/uL 4.5-11.0 [facility] Creatinine and Glomerular fi ltration rate.predicted panel (S/P/Bld)Ordered By: Rose Ohara on 03-25-2022 Creatinine [Mass/Vol] 1.40 mg/dL 0.44-1.03 [facility] Eosinophils Auto (Bld) [#/Vo l]Ordered By: Rose Ohara on 03-25-2022 Eosinophils (Bld) [#/Vol] 0.2 10*3/uL 0.0-0.45 [facility] Eosinophils/100 WBC Auto (Bl d)Ordered By: Rose Ohara on 03-25-2022 Eosinophils/100 WBC (Bld) 2.6 % [facility] Erythrocyte distribution wid th Auto (RBC) [Ratio]Ordered By: Rose Ohara on 03-25-2022 Erythrocyte distribution width (RBC) [Ratio] 15.1 % 11.9-15.3 [facility] Estimated glomerular filtrat ion rate (GFR) non- AmericanOrdered By: Rose Ohara on 03-25-2022 GFR/1.73 sq M.predicted among non-blacks MDRD (S/P/Bld) [Vol rate/Area] 37 mL/Min [facility] Globulin Calc (S) [Mass/Vol] Ordered By: Rose Ohara on 03-25-2022 Globulin (S) [Mass/Vol] 2.5 g/dL [facility] Hematocrit Auto (Bld) [Volum e fraction]Ordered By: Rose Ohara on 03-25-2022 Hematocrit (Bld) [Volume fraction] 43.3 % 34.0-46.4 [facility] Laboratory - Hematology and Cell countsOrdered By: Rose Ohara on 03-25-2022 Nucleated RBC/100 WBC (Bld) [Ratio] 0.1 % 0-0.5 [facility] Lactate dehydrogenase measur ement (enzymatic activity/volume)Ordered By: Rose Ohara on 03-25-2022 LDH (Unsp spec) [Catalytic activity/Vol] 111 U/L 45-190 [facility] Lymphocytes Auto (Bld) [#/Vo l]Ordered By: Rose Ohara on 03-25-2022 Lymphocytes (Bld) [#/Vol] 1.7 10*3/uL 1.00-4.8 [facility] Lymphocytes/100 WBC Auto (Bl d)Ordered By: Rose Ohara on 03-25-2022 Lymphocytes/100 WBC (Bld) 22.3 % [facility] MCH Auto (RBC) [Entitic mass ]Ordered By: Rose Ohara on 03-25-2022 MCH (RBC) [Entitic mass] 29.0 pg 24.7-34.3 [facility] MCHC Auto (RBC) [Mass/Vol]Or dered By: Rose Ohara on 03-25-2022 MCHC (RBC) [Mass/Vol] 32.8 g/dL 32.0-35.0 [facility] MCV Auto (RBC) [Entitic vol] Ordered By: Rose Ohara on 03-25-2022 MCV (RBC) [Entitic vol] 88.3 fL 80-100 [facility] Monocytes Auto (Bld) [#/Vol] Ordered By: Rose Ohara on 03-25-2022 Monocytes (Bld) [#/Vol] 0.7 10*3/uL 0.0-0.8 [facility] Monocytes/100 WBC Auto (Bld) Ordered By: Rose Ohara on 03-25-2022 Monocytes/100 WBC (Bld) 9.5 % [facility] Neutrophils Auto (Bld) [#/Vo l]Ordered By: Rose Ohara on 03-25-2022 Neutrophils (Bld) [#/Vol] 4.8 10*3/uL 1.8-7.7 [facility] Neutrophils/100 WBC Auto (Bl d)Ordered By: Rose Ohara on 03-25-2022 Neutrophils/100 WBC (Bld) 64.5 % [facility] No Panel InformationOrdered By: Rose Ohara on 03-25-2022 Estimated GFR () 45 mL/Min [facility] Comment on above: GFR estimated refere nce range: According to KDOQI guidelines, <60 ml/min/1.73m2 is sufficient to diagnose a patient with chronic kidney disease. Pharmacy Creatinine Clearance (Chem 39.92 [facility] Platelet mean volume Auto (B ld) [Entitic vol]Ordered By: Rose Ohara on 03-25-2022 Platelet mean volume (Bld) [Entitic vol] 8.2 fL 6.3-10.7 [facility] Platelets Auto (Bld) [#/Vol] Ordered By: Rose Ohara on 03-25-2022 Platelets (Bld) [#/Vol] 232 10*3/uL 150-450 [facility] Protein [Mass/volume] in Ser um or PlasmaOrdered By: Rose Ohara on 03-25-2022 Protein [Mass/Vol] 6.3 g/dL 6.1-7.9 [facility] RBC Auto (Bld) [#/Vol]Ordere d By: Rose Ohara on 03-25-2022 RBC (Bld) [#/Vol] 4.90 10*6/uL 3.60-5.00 [facility] Serum or plasma alanine mari otransferase measurement without P-5'-P (enzymatic activiOrdered By: Rose Ohara on 03-25-2022 ALT No additional P-5'-P [Catalytic activity/Vol] 23 U/L 10-60 [facility] Serum or plasma albumin/glob ulin mass ratioOrdered By: Rose Ohara on 03-25-2022 Albumin/Globulin [Mass ratio] 1.5 {ratio} [facility] Serum or plasma alkaline danial sphatase measurement (enzymatic activity/volume)Ordered By: Rose Ohara on 03-25-2022 ALP [Catalytic activity/Vol] 43 U/L 32-92 [facility] Serum or plasma aspartate am inotransferase measurement (enzymatic activity/volume)Ordered By: Rose Ohara on 03-25-2022 AST [Catalytic activity/Vol] 18 U/L 10-42 [facility] Serum or plasma calcium kandi urement (mass/volume)Ordered By: Rose Ohara on 03-25-2022 Calcium [Mass/Vol] 9.7 mg/dL 8.2-10.2 [facility] Serum or plasma chloride florentino surement (moles/volume)Ordered By: Rose Ohara on 03-25-2022 Chloride [Moles/Vol] 98 mmol/L 95-114 [facility] Serum or plasma glucose kandi urement (mass/volume)Ordered By: Rose Ohara on 03-25-2022 Glucose [Mass/Vol] 201 mg/dL 70-100 [facility] Comment on above: ADA recommended refe rence range Random Glucose Reference Range is dependent on time and content of last meal. Glucose of more than 200 mg/dL in a nonstressed, ambulatory subject supports the diagnosis of Diabetes Mellitus. Serum or plasma potassium me asurement (moles/volume)Ordered By: Rose Ohara on 03-25-2022 Potassium [Moles/Vol] 4.7 mmol/L 3.5-5.1 [facility] Serum or plasma sodium measu rement (moles/volume)Ordered By: Rose Ohara on 03-25-2022 Sodium [Moles/Vol] 139 mmol/L 136-146 [facility] Serum or plasma total biliru bin measurement (mass/volume)Ordered By: Rose Ohara on 03-25-2022 Bilirubin [Mass/Vol] 1.2 mg/dL 0.3-1.2 [facility] Serum or plasma total carbon dioxide measurement (moles/volume)Ordered By: Rose Ohara on 03-25-2022 CO2 [Moles/Vol] 27.4 mmol/L 22.0-30.0 [facility] Serum or plasma urea nitroge n measurement (mass/volume)Ordered By: Rose Ohara on 03-25-2022 Urea nitrogen [Mass/Vol] 29 mg/dL 07-30 [facility] TSH DL <= 0.005 mIU/L QnOrde red By: Rose Ohara on 03-25-2022 TSH Qn 0.89 m[IU]/L 0.45-5.33 [facility] BASIC METABOLIC PANELon 04-0 BUN/CREATININE RATIO NOT APPLICABLE Normal - [facility] Comment on above: Order Comment: FASTI NG:YES FASTING: YES Performed By: #### 4 96, [id number] #### [facility] [address], [address] [place] [address] Cra: Baldemar Jones MD Calcium [Mass/Vol] 9.4 mg/dL Normal 8.6-10.4 [facility] Comment on above: Order Comment: FASTI NG:YES FASTING: YES Performed By: #### 4 96, 63448 #### [facility] [address], [address] [place] [address] Cra: Baldemar Jones MD Chloride [Moles/Vol] 101 mmol/L Normal 98-110 [facility] Comment on above: Order Comment: FASTI NG:YES FASTING: YES Performed By: #### 4 96, 41501 #### [facility] [address], [address] [place] [address] Cra: Baldemar Jones MD CO2 [Moles/Vol] 31 mmol/L Normal 20-32 [facility] Comment on above: Order Comment: FASTI NG:YES FASTING: YES Performed By: #### 4 96, [id number] #### [facility] [address], [address] [place] [address] Cra: Baldemar Jones MD Creatinine [Mass/Vol] 0.84 mg/dL Normal 0.60-0.[address] [facility] Comment on above: Order Comment: FASTI NG:YES FASTING: YES Result Comment: For patients >49 years of age, the reference limit for Creatinine is approximately 13% higher for people identified as -Citizen Of [place]. Performed By: #### 4 96, 98041 #### [facility] [address], [address] [place] [address] Cra: Baldemar Jones MD eGFR NON-AFR. GUATEMALAN 69 mL/min/1.73m2 Normal > OR = 60 [facility] Comment on above: Order Comment: FASTI NG:YES FASTING: YES Performed By: #### 4 96, 42900 #### [facility] [address], [address] [place] [address] Cra: Baldemar Jones MD GFR/1.73 sq M.predicted among blacks MDRD (S/P/Bld) [Vol rate/Area] 80 mL/min/{1.73_m2} Normal > OR = 60 [facility] Comment on above: Order Comment: FASTI NG:YES FASTING: YES Performed By: #### 4 96, 39681 #### [facility] [address], [address] [place] [address] Cra: Baldemar Jones MD Glucose [Mass/Vol] 108 mg/dL High 65-99 [facility] Comment on above: Order Comment: FASTI NG:YES FASTING: YES Result Comment: Fasting reference interval For someone without known diabetes, a glucose value between 100 and 125 mg/dL is consistent with prediabetes and should be confirmed with a follow-up test. Performed By: #### 4 96, 28600 #### [facility] [address], [address] [place] [address] Cra: Baldemar Jones MD Potassium [Moles/Vol] 4.5 mmol/L Normal 3.5-5.[address] [facility] Comment on above: Order Comment: FASTI NG:YES FASTING: YES Performed By: #### 4 96, [id number] #### [facility] [address], [address] [place] [address] Cra: Baldemar Jones MD Sodium [Moles/Vol] 143 mmol/L Normal 135-146 [facility] Comment on above: Order Comment: FASTI NG:YES FASTING: YES Performed By: #### 4 96, 14294 #### [facility] [address], [address] [place] [address] Cra: Baldemar Jones MD Urea nitrogen [Mass/Vol] 22 mg/dL Normal 7-25 [facility] Comment on above: Order Comment: FASTI NG:YES FASTING: YES Performed By: #### 4 96, 87333 #### [facility] [address], [address] [place] [address] Cra: Baldemar Jones MD HEMOGLOBIN A1con 02-13-2022 HEMOGLOBIN [...] for children. Performed By: #### 4 96, 05586 #### [facility] [address], [address] [place] [address] Cra: Baldemar Jones MD No Panel InformationOrdered By: Bang Nunez on 01-09-2022 Adrenocorticotropic Hormone 39.5 pg/mL 7.2-63.3 [facility] Comment on above: ACTH reference inter bernarda for samples collected between 7 and 10 AM. Performed at: [address] [id number] [employer] Supervisor: Braxton Austin PhD, Phone: [phone] [facility] reference inter bernarda for samples collected between 7 and10 AM.Performed at: [address] [id number] Director: Braxton Austin PhD, Phone: [phone] Thyroxine (T4) free [Mass/vo lume] in Serum or PlasmaOrdered By: Bang Nunez on 01-09-2022 Free T4 [Mass/Vol] 0.81 ng/dL 0.61-1.12 [facility] B TYPE NATRIURETIC PEPTIDE ( BNP)on 12-03-2021 Natriuretic peptide B (Bld) [Mass/Vol] 67 pg/mL Normal <100 [facility] Comment on above: Result Comment: BNP levels increase with age in the general population with the highest values seen in individuals greater than 75 years of age. Reference: J. Am. Jim. Cardiol. 2002; 40:976-982. Performed By: #### 3 1986, [id number] #### [facility] [address], [address] [place] [address] Cra: Baldemar Jones MD BASIC METABOLIC PANELon 11-08 Calcium [Mass/Vol] 9.4 mg/dL Normal 8.6-10.4 [facility] Comment on above: Order Comment: FASTI NG:NO FASTING: NO Performed By: #### 3 4586, 33626 #### [facility] [place] [address] Cra: Baldemar Jones MD Chloride [Moles/Vol] 99 mmol/L Normal 98-110 [facility] Comment on above: Order Comment: FASTI NG:NO FASTING: NO Performed By: #### 3 7386, 30615 #### [facility] [place] [address] Cra: Baldemar Jones MD CO2 [Moles/Vol] 32 mmol/L Normal 20-32 [facility] Comment on above: Order Comment: FASTI NG:NO FASTING: NO Performed By: #### 3 1786, 77285 #### [facility] [address] [address] [place] [address] Cra: Baldemar Jones MD Creatinine [Mass/Vol] 0.90 mg/dL Normal 0.60-0.93 [employer] Comment on above: Order Comment: FASTI NG:NO FASTING: NO Result Comment: For patients >49 years of age, the reference limit for Creatinine is approximately 13% higher for people identified as -Citizen Of [place]. Performed By: #### 3 7386, 19382 #### [facility] [address], [address] [place] [address] Cra: Baldemar Jones MD eGFR NON-AFR. GUATEMALAN 64 mL/min/1.73m2 Normal > OR = 60 [facility] Comment on above: Order Comment: FASTI NG:NO FASTING: NO Performed By: #### 3 7386, 78123 #### [facility] [address], [address] [place] [address] Cra: Baldemar Jones MD GFR/1.73 sq M.predicted among blacks MDRD (S/P/Bld) [Vol rate/Area] 75 mL/min/{1.73_m2} Normal > OR = 60 [facility] Comment on above: Order Comment: FASTI NG:NO FASTING: NO Performed By: #### 3 7386, 06056 #### [facility] [place] [address] Cra: Baldemar Jones MD Glucose [Mass/Vol] 174 mg/dL High 65-139 [facility] Comment on above: Order Comment: FASTI NG:NO FASTING: NO Result Comment: Non-fasting reference interval For someone without known diabetes, a glucose value >125 mg/dL indicates that they may have diabetes and this should be confirmed with a follow-up test. Performed By: #### 3 7386, 10825 #### [facility] [place] [address] Cra: Baldemar Jones MD Potassium [Moles/Vol] 3.7 mmol/L Normal 3.5-5.3 [employer] [facility] Comment on above: Order Comment: FASTI NG:NO FASTING: NO Performed By: #### 3 7386, 08734 #### [facility] [place] [address] Cra: Baldemar Jones MD Sodium [Moles/Vol] 143 mmol/L Normal 135-146 [facility] Comment on above: Order Comment: FASTI NG:NO FASTING: NO Performed By: #### 3 7386, 39709 #### [facility] [address], [address] [place] [address] Cra: Baldemar Jones MD Urea nitrogen [Mass/Vol] 35 mg/dL High 05-31 [facility] Comment on above: Order Comment: FASTI NG:NO FASTING: NO Performed By: #### 3 7386, 87038 #### [facility] [address], [address] [place] [address] Cra: Baldemar Jones MD Urea nitrogen/Creatinine [Mass ratio] 39 mg/mg High 04-28 [facility] Comment on above: Order Comment: FASTI NG:NO FASTING: NO Performed By: #### 3 7386, 45580 #### [facility] [place] [address] Cra: Baldemar Jones MD ALBUMIN, RANDOM URINE W/CREA YONATAN 10-02-2021 ALBUMIN, URINE 0.9 mg/dL Normal See Note: [facility] Comment on above: Result Comment: Refe rence Range: Reference Range Not established Performed By: #### 7 600, 6517, 49900 #### [facility] [address], [address] [place] [address] Cra: Baldemar Jones MD ALBUMIN/CREATININE RATIO, RANDOM URINE [...] category. Performed By: #### 7 600, 6517, 69280 #### [facility] of [address], [address] [place] [address] Cra: Baldemar Jones MD Creatinine (U) [Mass/Vol] 69 mg/dL Normal 20-275 [facility] Comment on above: Performed By: #### 7 600, 6517, 70102 #### [facility] of [address], [address] [place] [address] Cra: Baldemar Jones MD [facility] METABOLIC [facility] 10-02-2021 Albumin [Mass/Vol] 4.4 g/dL Normal 3.6-5.1 [facility] Comment on above: Performed By: #### 7 600, 6517, 00756 #### [facility] of [place] [address] Cra: Baldemar Jones MD Albumin/Globulin [Mass ratio] 1.7 {ratio} Normal 1.0-2.5 [facility] Comment on above: Performed By: #### 7 600, 6517, 84596 #### [facility] of [place] [address] Cra: Baldemar Jones MD ALP [Catalytic activity/Vol] 50 U/L Normal 37-153 [facility] Comment on above: Performed By: #### 7 600, 6517, 19464 #### [facility] of [place] [address] Cra: Baldemar Jones MD ALT [Catalytic activity/Vol] 15 U/L Normal 6-29 [facility] Comment on above: Performed By: #### 7 600, 6517, 03445 #### [facility] of [place] [address] Cra: Baldemar Jones MD AST [Catalytic activity/Vol] 15 U/L Normal 10-35 [facility] Comment on above: Performed By: #### 7 600, 6517, 77380 #### [facility] of [address] [place] [address] Cra: Baldemar Jones MD Bilirubin [Mass/Vol] 1.2 mg/dL Normal 0.2-1.2 [facility] Comment on above: Performed By: #### 7 600, 6517, 78080 #### [facility] [address], [address] [place] [address] Cra: Baldemar Jones MD BUN/CREATININE RATIO NOT APPLICABLE Normal 6-22 [facility] Comment on above: Performed By: #### 7 600, 65, 89281 #### [facility] of [address], [address] [place] [address] Cra: Baldemar Jones MD Calcium [Mass/Vol] 9.6 mg/dL Normal 8.6-10.4 [facility] Comment on above: Performed By: #### 7 600, 65, 93707 #### [facility] [place] [address] Cra: Baldemar Jones MD Chloride [Moles/Vol] 103 mmol/L Normal 98-110 [facility] t [facility] Comment on above: Performed By: #### 7 600, 65, 93191 #### [facility] [place] [address] Cra: Baldemar Jones MD CO2 [Moles/Vol] 27 mmol/L Normal 20-32 [facility] Comment on above: Performed By: #### 7 600, 65, 39172 #### [facility] [place] [address] Cra: Baldemar Jones MD Creatinine [Mass/Vol] 0.81 mg/dL Normal 0.60-0.[address] [facility] Comment on above: Result Comment: For patients >49 years of age, the reference limit for Creatinine is approximately 13% higher for people identified as -Citizen Of [place]. Performed By: #### 7 600, 65, 86694 #### [facility] [address], [address] [place] [address] Cra: Baldemar Jones MD eGFR NON-AFR. GUATEMALAN 73 mL/min/1.73m2 Normal > OR = 60 [facility] Comment on above: Performed By: #### 7 600, 6517, 21248 #### [facility] [place] [address] Cra: Baldemar Jones MD GFR/1.73 sq M.predicted among blacks MDRD (S/P/Bld) [Vol rate/Area] 85 mL/min/{1.73_m2} Normal > OR = 60 [facility] Comment on above: Performed By: #### 7 600, 65, 04185 #### [facility] [place] [address] Cra: Baldemar Jones MD Globulin (S) [Mass/Vol] 2.6 g/dL Normal 1.9-3.7 [facility] Comment on above: Performed By: #### 7 600, 65, 03583 #### [facility] [place] [address] Cra: Baldemar Jones MD Glucose [Mass/Vol] 109 mg/dL High 65-99 [facility] Comment on above: Result Comment: Fasting reference interval For someone without known diabetes, a glucose value between 100 and 125 mg/dL is consistent with prediabetes and should be confirmed with a follow-up test. Performed By: #### 7 600, 65, 77262 #### [facility] [place] [address] Cra: Baldemar Jones MD Potassium [Moles/Vol] 4.1 mmol/L Normal 3.5-5.[address] [facility] Comment on above: Performed By: #### 7 600, 6517, 97888 #### [facility] [place] [address] Cra: Baldemar Jones MD Protein [Mass/Vol] 7.0 g/dL Normal 6.1-8.1 [facility] Comment on above: Performed By: #### 7 600, 6517, 00029 #### [facility] of [address], [address] [place] [address] Cra: Baldemar Jones MD Sodium [Moles/Vol] 143 mmol/L Normal 135-146 [facility] Comment on above: Performed By: #### 7 600, 6517, 71396 #### [facility] [address], [address] [place] [address] Cra: Baldemar Jones MD Urea nitrogen [Mass/Vol] 19 mg/dL Normal 7-25 [facility] Comment on above: Performed By: #### 7 600, 6517, 32486 #### [facility] [address], [address] [place] [address] Cra: Baldemar Jones MD LIPID PANEL, [place] [address]-2 Cholesterol [Mass/Vol] 106 mg/dL Normal <200 [facility] Comment on above: Order Comment: FASTI NG:YES FASTING: YES Performed By: #### 7 600, 6517, 36625 #### [facility] [address], [address] [place] [address] Cra: Baldemar Jones MD Cholesterol in HDL [Mass/Vol] 44 mg/dL Low > OR = 50 [facility] Comment on above: Order Comment: FASTI NG:YES FASTING: YES Performed By: #### 7 600, 6517, 02796 #### [facility] [address], [address] [place] [address] Cra: Baldemar Jones MD Cholesterol in LDL [Mass/Vol] [...] equation in the estimation of LDL-C. Theo KNAPP et al. KEZIA. 2013;310(19): 3290-7013 (http://education.Modusly.[employer]/faq/YWF231) Performed By: #### 7 600, 6517, 90408 #### [facility] [address], [address] [place] [address] Cra: Baldemar Jones MD Cholesterol.total/Chol esterol in HDL [Mass ratio] 2.4 {ratio} Normal <5.0 [facility] Comment on above: Order Comment: FASTI NG:YES FASTING: YES Performed By: #### 7 600, 6517, 24693 #### [facility] [address], [address] [place] [address] Cra: Baldemar Jones MD NON HDL CHOLESTEROL 62 mg/dL (calc) Normal <130 [facility] Comment on above: Order Comment: FASTI NG:YES FASTING: YES Result Comment: For patients with diabetes plus 1 major ASCVD risk factor, treating to a non-HDL-C goal of <100 mg/dL (LDL-C of <70 mg/dL) is considered a therapeutic option. Performed By: #### 7 600, 6517, 53241 #### [facility] [address], [address] [place] [address] Cra: Baldemar Jones MD Triglyceride [Mass/Vol] 185 mg/dL High <150 [facility] Comment on above: Order Comment: FASTI NG:YES FASTING: YES Performed By: #### 7 600, 6517, 13572 #### [facility] [address], [address] [place] [address] Cra: Baldemar Jones MD Laboratory - Chemistry and C hemistry - challengeOrdered By: Rose Ohara on 08-17-2021 Lipase [Catalytic activity/Vol] 27.0 U/L 22-51 [facility] Random cortisol measurementO rdered By: Rose Ohara on 08-17-2021 Cortisol [Mass/Vol] 10.1 ug/dL [facility] Comment on above: Reference range: AM 6 - 24 ug/dl PM <10 ug/dl Reference range: AM 6 - 24 ug/dl PM <10 ug/dl Creatinine (Bld) [Mass/Vol]O rdered By: Bang Nunez on 06-19-2021 Creatinine [Mass/Vol] 0.6 mg/dL 0.6-1.3 [facility] Comment on above: ER/ESD physician is notified/shown all ISTAT results. Critical values may be confirmed by laboratory testing if deemed necessary by ER attending doctor. ER/ESD physician is notified/shown all ISTAT results.Critical values may be confirmed by laboratory testing ifdeemed necessary by ER attending doctor. No Panel InformationOrdered By: Bang Nunez on 06-19-2021 POC Estimated GFR > 60 [facility] Comment on above: GFR estimated refere nce range: According to KDOQI guidelines, <60 ml/min/1.73m2 is sufficient to diagnose a patient with chronic kidney disease. POC Estimated GFR Non- Amer > 60 [facility] Glucose Glucometer (BldC) [M ass/Vol]Ordered By: Bang Nunez on 06-17-2021 Glucose [Mass/Vol] 124 mg/dL [facility] Comment on above: Random Glucose Refer ence Range is dependent on time and content of last meal. Glucose of more than 200 mg/dL in a nonstressed, ambulatory subject supports the diagnosis of Diabetes Mellitus. COVID-19 Positive/Negativeon 02-13-2021 SARS-CoV-2 (COVID-19) N gene KIP+probe Ql (Resp) Negative Negative [facility] Comment on above: Reference: Negative Testing for SARS-CoV-2 by RT-PCR This test was developed and its performance characteristics determined by [employer]) and validated at the [facility]. This test has not been FDA cleared [...] and its performance characteristics determined by [employer]) and validated at the [facility]. This test has not been FDA cleared [...] (COVID-19) RNA KIP+probe Ql (Unsp spec) N/A [facility] No Panel Informationon 12-22 Bedside Glucose Comment Glu2: cleaned meter [facility] Dermatopathologyon 1 Dermatopathology [facility] [address] [place] [id number] DERMATOPATHOLOGY REPORT Name:TOSHA MCNEAL Med. Rec #. [id number] Location: Date of Procedure: 11/28/2020 Race: Date [...] control slides stain appropriately. The prior biopsy [id number] was received and reviewed. The morphology is [...] determined by the Department of Pathology at [facility]. The FDA does not require this [...] A: Non sentinal lymph node. Excision. B: [place] Lymph node count 1005. (Hospital Outpatient) Specimens Submitted As: A: NODE, RIGHT AXILLARY NON-SENTINEL LYMPH NODE B: NODE, RIGHT AXILLARY SENTINEL LYMPH NODE COUNT 1005 Gross Description: A: Received in formalin is a ackerman-yellow irregularly shaped piece of tissue measuring 5t4m0vy. The specimen is inked and embedded in toto. B: Received in formalin is one ackerman-yellow irregularly shaped piece of tissue measuring [id number]. The specimen is inked and embedded in toto in three blocks. ink12/01/2020 Microscopic Description: A. Microscopic examination reveals a lymph node with normal architecture. No melanoma is seen on H and E staining. Melan-A, SOX-10, and HMB45 stains are unremarkable. All control slides stain appropriately. Normal [facility] Comment on above: Performed By: #### D #### Dermatopathology GLUCOSE-POCTon 11-28-2020 Glucose [Mass/Vol] 136 mg/dL High 74 - 99 [facility] Comment on above: Performed By: #### G WAYNE #### [facility] [address] [address] [place] [address] Glucose [Mass/Vol] 135 mg/dL High 74 - 99 [facility] Work Phone: Comment on above: Performed By: #### G WAYNE #### [facility] [address] [address] [place] [address] History and Physical - Surge ry > 30 dayson 11-28-2020 History and Physical - Surgery > 30 days History of Present Illness: History Present Illness: Reason for surgery: melanoma 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 COMPARISON: None. ACCESSION NUMBER(S): [id number] ORDERING CLINICIAN: CEDRICK BERGER TECHNIQUE: DIVISION OF [...] lymph node localization to the right axilla. [employer] images were sent to PACS. I personally reviewed the images/study and I agree with the findings as stated. This study was interpreted at [facility], [place], [place]. Electronically signed by: RICKI SALGADO MD Normal [facility] Patient Profile - Adult v2on 11-28-2020 Patient Profile - Adult v2 This report has been cancelled. Normal [facility] Patient Profile - Preop v2on 11-28-2020 Patient Profile - Preop v2 Profile: Initial Info: How to be AddressedSUZANNE(1) Spoken Language PreferredEnglish (1) Source of Informationpatient Are you currently using the Personal Electronic Health Record or [employer] Stated Reason for Admissioninjection in my lymph nodes Primary Contact Name and Numberharry-spouse Limitations on Visitors/Phone Callsonly spouse may visit Patient Belongingsremains with patient; patient educated regarding responsibility for personal items Patient Belongings Remaining with Patientclothing; vision aids; dental appliance Medications Brought to Hospitalno General Health: Weight in kg94.2 kilogram(s) Weight in lbe156.6 pound(s) Weight Methodactual (measured) Scale Typechair Height [...] Arrangementshouse Lives Withspouse Resource/Environmental Concernsnone Anticipated Transition [employer] Services Anticipated at Transitionnone Substance: Current or [...] instruction; written material Cultural Considerationsnone Developmental Considerationsnone Baptism Considerationsnone Other learner availableno [place] RiskPatient location auto qualifies him/her for HIGH RISK. Are there any cultural, spiritual, congregational practices/values/needs that are important for us to [...] Profile - Adult v2 28-Nov-2020 07:19 Normal [facility] Preop Checkliston 11-28-2020 Preop Checklist Preop Checklist: Preop Checklist: Arrival [id number] Arrival Time07:00 Procedure Typeinjection of right arm excision scar Heart Rate65 beats per minute Respiratory Rate16 breath per minute Blood Pressure Jkfgdire911 mm/Hg Blood Pressure Yyaasscuk52 mm/Hg NPO [id number] 10:30 ID Band Onyes Allergy Bandno known [...] Communication: Language / CommunicationEnglish Electronic Signatures: Evelin Lovett (PERLA) (Signed 28-Nov-2020 07:26) Authored: Preop Checklist Last Updated: 28-Nov-2020 07:26 by Evelin Lovett (PERLA) Normal [facility] CORONAVIRUS 2019, SCREEN ASY MPTOMATICon 11-26-2020 SARS-CoV-2 (COVID-19) RNA KIP+probe Ql (Unsp spec) Not detected Normal Not Detected [facility] Comment on above: Result Comment: [...] patient management decisions. Fact sheet for providers: https://www.fda.gov/media/140924/download Fact sheet for patients: https://www.fda.gov/media/508747/download This test has received FDA Emergency Use Authorization (EUA) and has been verified by [facility] ([facility]). This test is only authorized for the duration of time that circumstances exist to justify the authorization of the emergency use of in vitro diagnostic tests for the detection of SARS-CoV-2 virus and/or diagnosis of COVID-19 infection under section 564(b)(1) of the Act, 21 U.S.C. 360bbb-3(b)(1), unless the authorization is terminated or revoked sooner. [facility] is certified under CLIA-88 as qualified to perform high complexity testing. Testing is performed in the [facility] laboratories located at [address] [place] [address]. Performed By: #### C OVSC #### [place] [address] Lab Specimen Source Nasal, Nasopharyngeal Normal [facility] Comment on above: Performed By: #### C OVSC #### [place] [address] Coronavirus 2019 RNA by PCR, Screening Asymptomticon 11-26-2020 Coronavirus 2019 RNA by PCR, Screening Asymptomtic NOT DETECTED See Below EU-Zrdqnkt-S [facility] Work Phone: Comment on above: SOURCE: [...] make patient management decisions.Fact sheet for providers: https://www.fda.gov/media/807240/downloadFact sheet for patients: https://www.fda.gov/media/302019/downloadThis test has received FDA Emergency Use Authorization (EUA) and has been verified by [facility] ([facility]). This test is only authorized for the duration of time that circumstances exist to justify the authorization of the emergency use of in vitro diagnostic tests for the detection of SARS-CoV-2 virus and/or diagnosis of COVID-19 infection under section 564(b)(1) of the Act, 21 U.S.C. 360bbb-3(b)(1), unless the authorization is terminated or revoked sooner. [facility] is certified under CLIA-88 as qualified to perform high complexity testing. Testing is performed in the [facility] laboratories located at [address] [place] [address]. Covid 19 Resultson 1 SARS-CoV-2 (COVID-19) RNA [...] You may also be contacted by the [facility] to see if any of your close [...] or Naproxen (Aleve) can also be used. Bgak-grj-lovqrxk cough and cold medicines can be used according to the instructions on the package. Some ingr-uta-cphxkbg medicines also contain acetaminophen. Make sure you [...] water are not available, use alcohol-based hand drum sprayer. Avoid touching your eyes, nose, and mouth [...] ibuprofen (Motrin) (more content not included)... Normal [facility] BASIC METABOLIC PANELon 11-07 Anion gap [Moles/Vol] 15 mmol/L Normal 10 - 20 [facility] Comment on above: Performed By: #### B MP #### [address] [address] Calcium [Mass/Vol] 9.7 mg/dL Normal 8.6 - 10.3 [facility] Comment on above: Performed By: #### B MP #### [address] [address] Chloride [Moles/Vol] 99 mmol/L Normal 98 - 107 [facility] Comment on above: Performed By: #### B MP #### [address] [address] Creatinine [Mass/Vol] 0.64 mg/dL Normal 0.50 - 1.05 [facility] Comment on above: Performed By: #### B MP #### [address] [address] GFR- AM. >60 Normal >60 [facility] Comment on above: Result Comment: CALC ULATIONS OF ESTIMATED GFR ARE PERFORMED USING THE MDRD STUDY EQUATION FOR THE IDMS-TRACEABLE CREATININE METHODS. CLIN CHEM 2007;53:766-72 Performed By: #### B MP #### [address] [address] GFR-NON AM. >60 Normal >60 [facility] Comment on above: Performed By: #### B MP #### [address] [address] Glucose [Mass/Vol] 105 mg/dL High 74 - 99 [facility] Comment on above: Performed By: #### B MP #### [address] [address] HCO3 (Bld) [Moles/Vol] 30 mmol/L Normal 21 - 32 [facility] Comment on above: Performed By: #### B MP #### [address] [address] Potassium [Moles/Vol] 3.7 mmol/L Normal 3.5 - 5.3 [facility] Comment on above: Performed By: #### B MP #### [address] [address] Sodium [Moles/Vol] 140 mmol/L Normal 136 - 145 [facility] Comment on above: Performed By: #### B MP #### [address] [address] Urea nitrogen [Mass/Vol] 18 mg/dL Normal 6 - 23 [facility] Comment on above: Performed By: #### B MP #### [address] [address] Metabolic Panelon 11-21-2020 Anion gap [Moles/Vol] 15 mmol/L 10 - 20 [facility] Work Phone: Comment on above: Ordering Provider: Daniela KEVON Hernandez19 Calcium [Mass/Vol] 9.7 mg/dL 8.6 - 10.3 [facility] Work Phone: Comment on above: Ordering Provider: Daniela Hernandez19 Chloride [Moles/Vol] 99 mmol/L 98 - 107 [facility] Work Phone: Comment on above: Ordering Provider: Daniela KEVON Hernandez19 CO2 [Moles/Vol] 30 mmol/L 21 - 32 [facility]Surger y-[facility] Work Phone: Comment on above: Ordering Provider: Daniela KEVON Hernandez19 Creatinine [Mass/Vol] 0.64 mg/dL See Below MG- SurgeryS [facility] Work Phone: Comment on above: Reference Range: 0.5 0 - 1.05 Ordering Provider: Daniela Hernandez19 Glucose [Mass/Vol] 105 mg/dL above high threshold 74 - 99 ZO-Fmpqetq-O [facility] Work Phone: Comment on above: Ordering Provider: [place]a [place]EVON [place] [address] Potassium [Moles/Vol] 3.7 mmol/L 3.5 - 5.3 MG- SurgeryS [facility] Work Phone: Comment on above: Ordering Provider: Daniela KEVON Hernandez19 Sodium [Moles/Vol] 140 mmol/L 136 - 145 [facility] Work Phone: Comment on above: Ordering Provider: Daniela KEVON Hernandez19 Urea nitrogen [Mass/Vol] 18 mg/dL 6 - 23 SZ-Wbrpehk-G [facility] Work Phone: Comment on above: Ordering Provider: Daniela Hernandez19 Otheron 11-21-2020 >60 >60 ZI-Xfvelfp-A [facility] Work Phone: [phone] Comment on above: CALCULATIONS OF ASHA MATED GFR ARE PERFORMED USING THE MDRD STUDY EQUATION FOR THE IDMS-TRACEABLE CREATININE METHODS. CLIN CHEM 2007;53:766-72 Ordering Provider: Daniela REBOLLEDO [address] 428 1 ZY-Vbetohr-R [facility] Work Phone: [phone] NT-Icigcmu-Y [facility] Work Phone: [phone] Sinus rhythm with 1s t degree AV block KD-Rrrjkpp-Q [facility] Work Phone: [phone] [email or web address] [email or web address] ?RetrieveTestByDateTime?P pnzltaVS=[id number]&Date=1 03-07-2021&Time=11%3a49%3a 35%3a00&TestType=ECG&Site =12&OutputType=PDF&Ext=PD F XR-Wnufhwx-J [facility] Work Phone: [phone] QY-Hfiqsxp-L [facility] Work Phone: [phone] MV-Zeetptx-Q [facility] Work Phone: [phone] MB-Urxzifc-D [facility] Work Phone: [phone] PH-Yukmvda-V [facility] Work Phone: [phone] LD-Allgrkd-C [facility] Work Phone: [phone] CP-Saguqvn-K [facility] Work Phone: [phone] LY-Mhaamtb-Z [facility] Work Phone: [phone] VN-Zgdlgga-Z [facility] Work Phone: [phone] GZ-Fsxuugw-Q [facility] Work Phone: [phone] FD-Gpmksak-Q [facility] Work Phone: [phone] 1 SD-Agpilbd-X [facility] Work Phone: [phone] Abnormal HR-Ayxlykd-P [facility] Work Phone: Initial Visit (General Surge ry)on 10-23-2020 Initial Visit (General Surgery) Diagnoses/Problems Malignant melanoma of right upper arm (172.6) (C43.71) Patient Discussion/Summary 69-year-old woman with pT3b melanoma [...] be. We will plan for surgery at [facility] after the new year. Preadmission testing will [...] visit. Right arm melanoma History of Present Zpmdeoa04-zfra-otm woman referred to me by Dr. Nunez [...] history never smoker, , lives in the [facility] Medications include Ocuvite eyedrops, alendronate, amlodipine, [...] Oct 23 2020 10:45AM EST (Author) Normal [facility] Vital Signs Date Time Vital Sign Value Performing Clinician Facility 01-11-2024 10:39-0500 Body height 152.4 cm [facility] 01-11-2024 10:39-0500 Body mass index (BMI) [Ratio] 41.81 kg/m2 [facility] [facility] 01-11-2024 10:39-0500 Body temperature 98.2 [degF] [facility] [facility] 01-11-2024 10:39-0500 Body weight 97.11 kg [employer] [facility] 01-11-2024 10:39-0500 Diastolic blood pressure 78 mm[Hg] [employer] [facility] 01-11-2024 10:39-0500 Heart rate 65 /min [facility] [facility] 01-11-2024 10:39-0500 SaO2% (BldA) [Mass fraction] 92 % [employer] [facility] 01-11-2024 10:39-0500 Systolic blood pressure 130 mm[Hg] [employer] [facility] 12-23-2023 09:37-0500 Body height 152.4 cm [employer] Work Phone: [facility] 12-23-2023 09:37-0500 Body mass index (BMI) [Ratio] 41.46 kg/m2 Wild Furlong DO Work Phone: [facility] 12-23-2023 09:37-0500 Body temperature 98.49 [degF] Wild Furlong DO Work Phone: [facility] 12-23-2023 09:37-0500 Body weight 96.3 kg Wild Furlong DO Work Phone: [facility] [facility] 12-23-2023 09:37-0500 Diastolic blood pressure 50 mm[Hg] Wild Furlong DO Work Phone: [facility] 12-23-2023 09:37-0500 Heart rate 65 /min Wild Furlong DO Work Phone: [facility] 12-23-2023 09:37-0500 SaO2% (BldA) [Mass fraction] 95 % Wild Furlong DO Work Phone: [facility] 12-23-2023 09:37-0500 Systolic blood pressure 140 mm[Hg] Wild Furlong DO Work Phone: [facility] 12-15-2023 10:17-0500 Body height 152.4 cm DO Wild Furlong Work Phone: [facility] 12-15-2023 10:17-0500 Body mass index (BMI) [Ratio] 41 kg/m2 DO Wild Furlong Work Phone: [facility] 12-15-2023 10:17-0500 Body temperature 97.3 [degF] DO Wild Furlong Work Phone: [facility] 12-15-2023 10:17-0500 Body weight 95.25 kg DO Wild Furlong Work Phone: [facility] 12-15-2023 10:17-0500 Diastolic blood pressure 73 mm[Hg] DO Wild Furlong Work Phone: [facility] 12-15-2023 10:17-0500 Heart rate 55 /min DO Wild Furlong Work Phone: [facility] 12-15-2023 10:17-0500 Respiratory rate 16 /min DO Wild Furlong Work Phone: [facility] 12-15-2023 10:17-0500 Systolic blood pressure 150 mm[Hg] DO Wild Furlong Work Phone: [facility] 08-11-2023 10:23-0400 Body temperature 97.2 [degF] DO Wild Furlong Work Phone: [facility] 08-11-2023 10:230400 Body weight 99.79 kg DO Wild Furlong Work Phone: [facility] 08-11-2023 10:23-0400 Diastolic blood pressure 77 mm[Hg] DO Wild Furlong Work Phone: [facility] 08-11-2023 10:23-0400 Heart rate 56 /min DO Wild Furlong Work Phone: [facility] 08-11-2023 10:23-0400 Respiratory rate 16 /min DO Wild Furlong Work Phone: [facility] 08-11-2023 10:23-0400 SaO2% (BldA) [Mass fraction] 95 % DO Wild Furlong Work Phone: [facility] 08-11-2023 10:23-0400 Systolic blood pressure 155 mm[Hg] DO Wild Furlong Work Phone: [facility] 04-13-2023 09:19-0400 Body temperature 97.9 [degF] DO Wild Furlong Work Phone: [facility] 04-13-2023 09:19-0400 Body weight 99.33 kg DO Wild Furlong Work Phone: [facility] 04-13-2023 09:19-0400 Diastolic blood pressure 67 mm[Hg] DO Wild Furlong Work Phone: [facility] 04-13-2023 09:19-0400 Heart rate 64 /min DO Wild Furlong Work Phone: [facility] 04-13-2023 09:19-0400 Respiratory rate 16 /min DO Wild Furlong Work Phone: [facility] 04-13-2023 09:19-0400 SaO2% (BldA) [Mass fraction] 97 % DO Wild Furlong Work Phone: [facility] 04-13-2023 09:19-0400 Systolic blood pressure 148 mm[Hg] DO Wild Furlong Work Phone: [facility] 09-23-2022 08:25-0500 Body temperature 97.8 [degF] DO Wild Furlong Work Phone: [facility] 09-23-2022 08:25-0500 Body weight 99.9 kg DO Wild Furlong Work Phone: [facility] 09-23-2022 08:25-0500 Diastolic blood pressure 66 mm[Hg] DO Wild Furlong Work Phone: [facility] 09-23-2022 08:25-0500 Heart rate 68 /min DO Wild Furlong Work Phone: [facility] 09-23-2022 08:25-0500 Respiratory rate 16 /min DO Wild Furlong Work Phone: [facility] 09-23-2022 08:25-0500 SaO2% (BldA) [Mass fraction] 94 % DO Wild Furlong Work Phone: [facility] 09-23-2022 08:25-0500 Systolic blood pressure 153 mm[Hg] DO Wild Furlong Work Phone: [facility] 07-01-2022 10:32-0400 Body temperature 97.8 [degF] DO Wild Furlong Work Phone: [facility] 07-01-2022 10:32-0400 Body weight 99.33 kg DO Wild Furlong Work Phone: [facility] 07-01-2022 10:32-0400 Diastolic blood pressure 75 mm[Hg] DO Wild Furlong Work Phone: [facility] 07-01-2022 10:32-0400 Heart rate 55 /min DO Wild Furlong Work Phone: [facility] 07-01-2022 10:32-0400 Respiratory rate 16 /min DO Wild Furlong Work Phone: [facility] 07-01-2022 10:32-0400 SaO2% (BldA) [Mass fraction] 98 % DO Wild Furlong Work Phone: [facility] 07-01-2022 10:32-0400 Systolic blood pressure 154 mm[Hg] DO Wild Furlong Work Phone: [facility] 03-31-2022 13:24-0400 Body temperature 97 [degF] DO Wild Furlong Work Phone: [facility] 03-31-2022 13:24-0400 Body weight 98.42 kg DO Wild Furlong Work Phone: [facility] 03-31-2022 13:24-0400 Diastolic blood pressure 74 mm[Hg] DO Wild Furlong Work Phone: [facility] 03-31-2022 13:24-0400 Heart rate 62 /min DO Wild Furlong Work Phone: [facility] 03-31-2022 13:24-0400 Respiratory rate 16 /min DO Wild Stone Work Phone: [facility] 03-31-2022 13:24-0400 SaO2% (BldA) [Mass fraction] 96 % DO Wild Pendletonlong Work Phone: [facility] 03-31-2022 13:24-0400 Systolic blood pressure 150 mm[Hg] DO Wild Hernandezng Work Phone: [facility] 10-01-2020 10:47-0500 Body height 157.99 cm DO Wild Hernandezng Work Phone: [facility] 1950 00:00-0500 >na< Obdulio Flowers Dept. of Adriano matology Encounters Encounter Date Encounter Type Care Provider Facility Start: 03-23-2024 End: 03-23-2024 ambulatory [facility] Start: 03-20-2024 End: 03-20-2024 ambulatory [facility] Start: 02-02-2024 Refill Irene Schrader WAREHOUSE OPERATIONS MANAGER-RESIDENTIAL ROOFER HELPER Work Phone: [facility] Start: 01-15-2024 Orders Only Wild recinos DO Work Phone: [facility] Start: 01-11-2024 End: 01-12-2024 ambulatory [facility] Start: 01-11-2024 End: 01-11-2024 ambulatory [facility] Start: 01-11-2024 End: 01-11-2024 Office outpatient visit 25 minutes Wild Stone DO Work Phone: [facility] Comment on above: Type 2 diabetes deepak itus with stage 3a chronic kidney disease, with long-term current use of insulin ([facility]) (Primary Dx); Gout, unspecified cause, unspecified chronicity, unspecified site; Mixed hyperlipidemia; Morbid obesity ([facility]); 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 ([facility]) Start: 12-30-2023 End: 12-30-2023 ambulatory [facility] [place] [facility] Start: 12-28-2023 End: 12-29-2023 ambulatory IRMA CORTEZ Not Available Start: 12-26-2023 End: 12-26-2023 ambulatory IRMA CORTEZ Not Available Start: 12-26-2023 Refill [facility] DO Work Phone: [facility] Start: 12-23-2023 End: 12-23-2023 ambulatory [facility] Start: 12-23-2023 End: 12-23-2023 Office outpatient visit 15 minutes [facility] DO Work Phone: [facility] Comment on above: Acute gout due to re nal impairment involving toe of right foot (Primary Dx); 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 ([facility]) Start: 12-21-2023 End: 12-22-2023 ambulatory IRMA CORTEZ Not Available Start: 12-21-2023 End: 12-21-2023 Admission to same day surgery center Irma Cortez CLINICAL PRODUCT SPECIALIST [facility] Comment on above: Aftercare following left knee joint replacement surgery (Primary Dx); Acute pain of left knee; Stiffness of left knee; Primary osteoarthritis of left knee Start: 12-21-2023 End: 12-21-2023 ambulatory Irma Cortez CLINICAL PRODUCT SPECIALIST [facility] Start: 12-21-2023 Bamboo flowsheet Irma Cortez CLINICAL PRODUCT SPECIALIST [facility] Start: 12-21-2023 Bamboo flowsheet Irma Cortez CLINICAL PRODUCT SPECIALIST [facility] Start: 12-19-2023 End: 12-19-2023 Admission to same day surgery center Shan Haskins CLINICAL PRODUCT SPECIALIST [facility] Comment on above: Aftercare following left knee joint replacement surgery (Primary Dx); Acute pain of left knee; Stiffness of left knee; Primary osteoarthritis of left knee Start: 12-19-2023 End: 12-20-2023 ambulatory Shan Haskins CLINICAL PRODUCT SPECIALIST [facility] Start: 12-19-2023 Bamboo flowsheet Shan Haskins PT A [facility] Start: 12-19-2023 Bamboo flowsheet Shan Haskins PT A [facility] Start: 12-15-2023 End: 12-15-2023 Patient encounter procedure DO Wild Furlong Work Phone: [facility] Work Phone: Start: 12-15-2023 End: 12-15-2023 ambulatory DO Wild Furlong Work Phone: [facility] Work Phone: Start: 12-15-2023 Registered Recurring DO Wild Furlong Work Phone: [facility] Work Phone: Start: 12-14-2023 End: 12-14-2023 ambulatory IRMA CORTEZ Not Available Start: 12-14-2023 End: 12-14-2023 Admission to same day surgery center Irma Cortez CLINICAL PRODUCT SPECIALIST [facility] Comment on above: Aftercare following left knee joint replacement surgery (Primary Dx); Acute pain of left knee; Stiffness of left knee; Primary osteoarthritis of left knee Start: 12-14-2023 End: 12-14-2023 ambulatory Irma Cortez CLINICAL PRODUCT SPECIALIST [facility] Start: 12-14-2023 Bamboo flowsheet Irma Cortez CLINICAL PRODUCT SPECIALIST [facility] Start: 12-14-2023 Bamboo flowsheet Irma Cortez CLINICAL PRODUCT SPECIALIST [facility] Start: 12-13-2023 End: 12-13-2023 ambulatory Wild Furlong Facility:[facility] Start: 12-13-2023 Registered Recurring DO Wild Furlong [facility] Work Phone: Start: 12-13-2023 End: 12-13-2023 ambulatory DO Wild Furlong Work Phone: [facility] Work Phone: Start: 12-13-2023 End: 12-13-2023 Patient encounter procedure DO Wild Pendletonlong Work Phone: [facility] [place] Work Phone: Start: 2023 End: 2023 ambulatory IRMA KELBLEY Not Available Start: 12-07-2023 End: 12-08-2023 ambulatory IRMA KELBLEY Not Available Start: 12-05-2023 End: 12-05-2023 ambulatory IRMA KELBLEY Not Available Start: 12-02-2023 End: 12-02-2023 ambulatory IRMA BONITA [facility] Start: 12-02-2023 End: 12-02-2023 ambulatory IRMA KELBLEY Not Available Start: 11-30-2023 End: 11-30-2023 ambulatory IRMA KELBLEY Not Available Start: 11-25-2023 End: 11-25-2023 ambulatory IRMA KELBLEY Not Available Start: 11-23-2023 End: 11-23-2023 ambulatory IRMA KELBLEY Not Available Start: 11-21-2023 End: 11-21-2023 ambulatory IRMA KELBLEY Not Available Start: 11-09-2023 End: 11-09-2023 ambulatory Aly Higgins MD Facility:[facility] Start: 11-08-2023 End: 11-08-2023 ambulatory IRMA KELBLEY Not Available Start: 11-04-2023 End: 11-04-2023 ambulatory IRMA KELBLEY Not Available Start: 11-02-2023 End: 11-02-2023 ambulatory IRMA KELBLEY Not Available Start: 11-01-2023 End: 11-02-2023 ambulatory IRMA KELBLEY Not Available Start: 10-28-2023 End: 10-28-2023 ambulatory VIRGINIA BRINK Not Available Start: 10-26-2023 End: 10-26-2023 ambulatory VIRGINIA BRINK Not Available Start: 10-24-2023 End: 10-24-2023 ambulatory AMAN YU Not Available Start: 10-03-2023 End: 10-04-2023 ambulatory [facility] Start: 09-26-2023 End: 09-26-2023 ambulatory AMAN YU Not Available Start: 09-08-2023 End: 09-13-2023 ambulatory [facility]rawal [facility] Start: 08-29-2023 ambulatory [facility] Start: 08-29-2023 Encounter for other preprocedural examination [facility] Start: 08-11-2023 End: 08-11-2023 ambulatory DO Wild Furlong Work Phone: [facility] Work Phone: Start: 08-11-2023 End: 08-11-2023 Registered Recurring DO Wild Furlong Work Phone: [facility] Work Phone: Start: 05-17-2023 End: 05-17-2023 ambulatory [facility] Start: 04-13-2023 End: 04-13-2023 ambulatory DO Wild Furlong Work Phone: [facility] Work Phone: Start: 04-13-2023 End: 04-13-2023 Registered Recurring DO Wild Furlong Work Phone: [facility] Work Phone: Start: 03-03-2023 End: 03-04-2023 ambulatory WILD G FURLONG Facility: Start: 09-23-2022 End: 09-23-2022 ambulatory DO Wild Furlong Work Phone: [facility] Work Phone: Start: 09-23-2022 End: 09-23-2022 Registered Recurring DO Wild Furlong [facility] Start: 08-26-2022 End: 08-27-2022 ambulatory WILD G FURLONG Facility:[facility] Start: 08-11-2022 End: 08-12-2022 ambulatory WILD G FURLONG Facility:[facility] Start: 07-01-2022 End: 07-01-2022 Registered Recurring DO Wild Furlong [facility] Start: 04-29-2022 End: 04-30-2022 ambulatory ROBERT LONG Facility:[facility] Start: 03-31-2022 End: 03-31-2022 Registered Recurring DO Wild Furlong Work [facility] Start: 12-16-2020 Obdulio Flowers Dep t. of [...] Furlong Work Phone: Start: 05-13-2023 Mammography Irma Sales eber CLINICAL PRODUCT SPECIALIST Start: 04-07-2023 Ultrasonography of limb DO Wild Furlong Work Phone: Start: 03-14-2023 Microalbumin [Mass/v olume] in Urine by Test strip Wild Furlong DO Work Phone: Start: 12-21-2022 Computed tomography of abdomen and pelvis with contrast DO WildNuzzellong Work Phone: Start: 12-21-2022 CT of thorax with contrast DO WildNuzzellong Work Phone: Start: 09-21-2022 Ultrasonography of limb DO [employer] Work Phone: Start: 06-29-2022 Computed tomography of abdomen and pelvis with contrast DO WildTianjin [employer] Work Phone: Start: 06-29-2022 CT of thorax with contrast DO Ikanoslong Work Phone: Start: 03-29-2022 Ultrasonography of limb DO [employer] Work Phone: Start: 12-28-2021 Computed tomography of abdomen and pelvis with contrast DO [employer] Work Phone: Start: 12-28-2021 CT of thorax with contrast DO [employer] Work Phone: Start: 09-24-2021 Ultrasonography of limb DO [employer] Work Phone: Start: 06-19-2021 MRI of head DO [employer] Work Phone: Start: 06-17-2021 Positron emission to mography with computed tomography DO [employer] Work Phone: Start: 03-27-2021 Ultrasound procedure on topographic region DO [employer] Work Phone: Start: 12-16-2020 Obdulio Flowers Cataract surgery Wild Furguy elena Ligation of fallopian tube D josette Furdesing Repair of musculoten dinous cuff of shoulder Wild TeleDNAcarito Plan of Treatment Date Care Activity Detail Author Start: 03-25-2026 Screening for malign ant neoplasm of colon [facility] Start: 01-10-2025 Adult BMI Screening Adult BMI Screen [facility] Start: 01-10-2025 Depression Screening Depression Scre [facility] Start: 01-10-2025 Fall Risk Screening Fall Risk Screen ing [facility] Start: 01-10-2025 Tobacco Screening Tobacco Screening [facility] Start: 12-23-2024 Adult BMI Screening Adult BMI Screen ing [facility] Start: 12-23-2024 Depression Screening Depression Scre ening [facility] Start: 12-23-2024 Fall Risk Screening Fall Risk Screen ing [facility] Start: 12-23-2024 Tobacco Screening Tobacco Screening [facility] Start: 09-12-2024 Adult BMI Screening Adult BMI Screen ing [facility] Start: 09-12-2024 Depression Screening Depression Scre ening [facility] Start: 09-12-2024 Tobacco Screening Tobacco Screening [facility] Start: 09-01-2024 Glaucoma screening Diabetic Op hthalmology Exam [facility] Start: 07-16-2024 End: 07-16-2024 Patient encounter procedure 07/16/2024 8:30 AM EDT Office Visit [facility] [address] [place] [address] Wild Stone, DO [address], [facility] [place] [address] [facility] Start: 07-12-2024 Fall Risk Screening Fall Risk Screen ing [facility] Start: 05-13-2024 Screening for malign ant neoplasm of breast Mammogram [facility] Start: 03-20-2024 End: 03-20-2024 Patient encounter procedure 03/20/2024 11:10 AM EDT Office Visit [facility] [address] [place] [address] [facility] Start: 03-14-2024 Diabetic foot examination Diabetic Foot Exam [facility] Start: 03-14-2024 Urine screening for protein Urine Microalbumin [facility] Start: 03-10-2024 Medicare Annual Well ness Visit Medicare Annual Wellness Visit [facility] Start: 01-11-2024 End: 01-11-2024 Patient encounter procedure 01/11/2024 10:50 AM EST Office Visit [facility] [address] [place] [address] [place] [id number] Wild Stone DO [address], [place] [address] [facility] Start: 12-28-2023 End: 12-28-2023 ambulatory 12/28/2023 2:30 PM EST Treatment [facility] [address] [facility] [address] [place] [address] Irma Cortez, CLINICAL PRODUCT SPECIALIST [facility] Start: 12-26-2023 End: 12-26-2023 ambulatory 12/26/2023 2:30 PM EST Treatment [facility] [address] [place] [address] Vangie Cortezissa, CLINICAL PRODUCT SPECIALIST [facility] Start: 12-21-2023 End: 12-21-2023 ambulatory 12/21/2023 2:30 PM EST Treatment [facility] [address] [place] [address] Vangie Cortezissa, CLINICAL PRODUCT SPECIALIST [facility] Start: 12-19-2023 End: 12-19-2023 ambulatory [facility] Comment on above: Arrived Start: 12-14-2023 End: 12-14-2023 ambulatory 12/14/2023 2:30 PM EST Treatment [facility] [address] [facility] [address] [place] [address] Irma Cortez, CLINICAL PRODUCT SPECIALIST Arrived [facility] Comment on above: Arrived Start: 07-08-2023 COVID-19 Vaccine ( season) COVID-19 Vaccine ( season) [facility] Start: 09-18-2022 DTaP,Tdap and Td Vaccines (2 - Td or Tdap) DTaP,Tdap and Td Vaccines (2 - Td or Tdap) [facility] Start: 12-08-2021 [facility] Start: 10-06-2021 [facility] Start: 07-15-2021 End: 07-15-2021 [facility] Start: 07-10-2021 [facility] Start: 06-29-2021 [facility] Start: 03-09-2013 Administration of varicella zoster vaccine Zoster (Shingles) Vaccine (1 of 2) [facility] Start: 1968 Adult BMI Follow Up Plan Adult BMI Follow Up Plan [facility] Start: 1950 Screening for malign ant neoplasm of colon [facility] Comprehensive metabo lic 1999 panel - Serum or Plasma [facility] Work Phone: Comprehensive metabo lic 1999 panel - Serum or Plasma [facility] Comprehensive metabo lic 1999 panel - Serum or Plasma [facility] Comprehensive metabo lic 1999 panel - Serum or Plasma [facility] Comprehensive metabo lic 1999 panel - Serum or Plasma [facility] CT Abdomen and Pelvi s W contrast IV [facility] CT Abdomen and Pelvi s W contrast IV [facility] CT Abdomen and Pelvi s W contrast IV [facility] CT Chest W contrast IV [facility] CT Chest W contrast IV [facility] CT Chest W contrast IV [facility] Lactate dehydrogenas e [Enzymatic activity/volume] in Unspecified specimen [facility] Work Phone: Lactate dehydrogenas e [Enzymatic activity/volume] in Unspecified specimen [facility] Extremity [facility] Work Phone: Extremity [facility] Extremity [facility] Immunizations Immunization Date Immunization Notes Care Provider [facility] 09-12-2023 Influenza Vaccine, Quadrivalent, Adjuvanted Wild Furlong DO Work Phone: [facility] [employer] [facility] 10-08-2022 Influenza, High-dose , Quadrivalent Wild Furlong DO Work Phone: [facility] 10-12-2020 influenza, injectabl e, quadrivalent, contains preservative Wild Furlong DO Work Phone: [facility] 09-03-2019 Influenza, injectabl e, Madin Soraida Canine Kidney, quadrivalent with preservative Wild Furlong DO Work Phone: [facility] 10-24-2017 Influenza, injectabl e, Madin [place] Canine Kidney, preservative free, quadrivalent Wild Furlong DO Work Phone: [facility] 10-24-2017 pneumococcal polysaccharide vaccine, 23 valent Wild Furlong DO Work Phone: [facility] 09-05-2016 influenza, seasonal, injectable, preservative free Wild Furlong DO Work Phone: [facility] 08-05-2016 pneumococcal conjuga te vaccine, 13 valent Wild Furlong DO Work Phone: [facility] 09-07-2015 influenza, seasonal, injectable, preservative free Wild Furlong DO Work Phone: [facility] 01-12-2013 varicella virus vaccine Denn is Furlong DO Work Phone: [facility] 01-12-2013 zoster vaccine, unspecified formulation Wild Furlong DO Work Phone: [facility] 09-18-2012 tetanus toxoid, redu bret diphtheria toxoid, and acellular pertussis vaccine, adsorbed Wild Furlong DO Work Phone: [facility] 1950 pneumococcal conjuga te vaccine, 7 valent Obdulio Flowers 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 Payers Date Payer Category Payer Self-pay [id number] 2018 Unknown 2014 Medicare 1960 Medicare [id number] 1959 Unknown [id number] 1949 Unknown [id number] 2.16.84 0.1.062390.3.579.2.593 1949 Unknown [id number] 2.16.84 0.1.781371.3.579.2.593 1949 Unknown [id number] 2.16.84 0.1.084005.3.579.2.593 1949 Unknown [id number] 2.16.84 0.1.936231.3.579.2.593 1949 Unknown [id number] 2.16.8 40.1.154980.3.579.2.173 1949 Unknown [id number] 2.16.8 40.1.180231.3.579.2.173 1949 Unknown [id number] 2.16. 840.1.851481.3.579.2.196 1949 Unknown [id number] 2.16.84 0.1.464108.3.579.2.1259 1949 Unknown [id number] 2.16.84 0.1.887569.3.579.2.1259 1949 Unknown [id number] 2.16.84 0.1.750550.3.579.2.1259 1949 Unknown [id number] 2.16.84 0.1.900821.3.579.2.1259 1949 Unknown [id number] 2.16.84 0.1.659225.3.579.2.1259 1949 Unknown [id number] 2.16.84 0.1.287865.3.579.2.1259 1949 Unknown [id number] 2.16.84 0.1.352074.3.579.2.1259 1949 Unknown [id number] 2.16.84 0.1.118248.3.579.2.1259 1949 Unknown [id number] 2.16.84 0.1.342313.3.579.2.1259 1949 Unknown [id number] 2.16.84 0.1.257794.3.579.2.1259 1949 Unknown [id number] 2.16.84 0.1.087249.3.579.2.1259 1949 Unknown [id number] 2.16.84 0.1.106558.3.579.2.1259 1949 Unknown [id number] 2.16.84 0.1.679509.3.579.2.1259 1949 Unknown [id number] 2.16.840 .1.842318.3.579.2.1259 1949 Unknown [id number] 2.16.840 .1.150306.3.579.2.1259 1949 Unknown [id number] 2.16.840 .1.677979.3.579.2.1259 1949 Unknown [id number] 2.16.840 .1.753822.3.579.2.1259 1949 Unknown [id number] 2.16.840 .1.399402.3.579.2.1259 1949 Unknown [id number] 2.16.840 .1.340367.3.579.2.125 1949 Unknown [id number] 2.16.840 .1.176453.3.579.2.1259 1949 Unknown [id number] 2.16.840 .1.277489.3.579.2.125 1949 Unknown [id number] 2.16.8 40.1.750537.3.579.2.1286 1949 Unknown [id number] 2.16.8 40.1.905037.3.579.2.1286 1949 Unknown [id number] 2.16.8 40.1.585754.3.579.2.1286 1949 Unknown [id number] 2.16.8 40.1.091289.3.579.2.1286 Unknown [facility] [id number] Unknown [id number] 2.16.8 40.1.859920.3.579.2.531 Unknown [id number] Social History Date Type Detail Facility Assertion Tobacco smoking consumption unknown (finding) [facility] Work Phone: Start: 12-16-2020 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 Start: 1950 Sex Assigned At Female [facility] Start: 03-31-2022 End: 09-06-2022 Tobacco smoking status NHIS Never smoked tobacco (finding) [facility] Start: 09-06-2022 End: 11-04-2023 Tobacco use and exposure Smokeless tobacco non-user [facility] Start: 11-04-2023 End: 01-11-2024 Alcohol intake Ex-drinker (finding) [facility] Start: 12-18-2020 End: 11-04-2023 History of Social function [facility] Start: 12-18-2020 End: 11-04-2023 Tobacco use panel [facility] Start: 11-04-2023 Alcohol Comment Caffeine: 1-2 cups/day [facility] Start: 1950 Sex Assigned At Not on file [facility] Do you belong to any clubs or organizations such as buddhist groups, unions, fraternal or athletic groups, or school groups? Yes [facility] Are you now , , , , never or living with a partner? [facility] How often to you hav e a drink containing alcohol? Never [facility] How many standard dr inks containing alcohol do you have on a typical day? Patient does not drink [facility] Do you feel stress - tense, restless, nervous, or anxious, or unable to sleep at night because your mind is troubled all the time - these days [OSQ] Not at all [facility] [facility] Medical Equipment Procedure Code Equipment Code [...] Elena Plus test strips TEST once daily [id number] Goals Date Patient Goal Desired Activity /State Functional Status Date Assessment Result Facility NEGATED: Highlighted row Functional performance Functional status health issues are not documented Disease [facility] Work Phone: Mental Status Date Assessment Result Facility NEGATED: Highlighted row Cognitive function [Interpretation] Cognitive status health issues are not documented Disease [facility] Work Phone: Clinical Notes 10-01-2020 to 03-23-2024 Wild Stone, DO - 01/11/2024 11:00 AM Malissa Stone, DO - 12/23/2023 9:40 AM EST Note Date & Type Note Facility 03-23-2024 Note [facility] CARDIOL OGY PROGRESS NOTE HPI: Tosha Mcneal is a 73 y.o. Patient here for follow up HFpEF, hypertension, and hyperlipidemia. Patient here today for 3 mo follow up hypertension. She has been taking an extra 40mg of lasix daily due to LLE edema for about 1 week. She is up 6# since last visit in Dec 2023. Denies chest pain, palpitations, and lightheadedness/syncope. Denies any orthopnea or PND. Review of Systems 10 point ROS is performed and is negative unless otherwise specified in HPI Visit Vitals Smoking Status Never No Known Allergies Medications: Current Outpatient Medications [...] crestor 10 mg daily Essential hypertension Patient is on amlodipine 5 mg daily and lisinopril 40 mg daily Bp is well controlled Continue current medication regimen. I reminded her to check her blood pressure 2 hours after her taking her medications, to maintain a daily blood pressure log. She is to contact cardiology if blood pressure is above or below discuss target range. She voices understanding HFpEF Patient Reports lower extremity edema that has worsened over the past few weeks No Orthopnea or paroxysmal nocturnal dyspnea Will order echocardiogram to assess LVEF, regional wall motion, valvular function Patient was on Lasix 20 mg daily. She was taking an additional 40/day. Her creatinine has worsened, and her potassium is increased. Patient instructed to take 40 mg/day. Will decrease potassium to 10 meq equivalents daily. Check BMP in 1 week. -Optimize medical management -Aggressive risk factor modification -Plan of care discussed with patient. All questions were answered. Patient voices understanding and is agreeable with current plan. -Patient was educated on red flag symptoms. Strict return precautions were provided. Patient verbalizes understanding -Follow-up in cardiology clinic in 4-6 weeks, or sooner as needed Robert Long MD [facility] 01-11-2024 History of Present illness Narrative Subjective Patient ID: Tosha Mcneal is a 73 y.o. female. Tosha presents [...] disease, with long-term current use of insulin ([facility]) - Comprehensive metabolic panel; Future - Hemoglobin A1c; Future - Magnesium; Future - Parathyroid Hormone, intact; Future - Phosphorus; Future - Vitamin D 25 hydroxy; Future Check A1c and CKD labs Gout, unspecified cause, unspecified chronicity, unspecified site - Uric acid; Future Check uric acid Mixed hyperlipidemia - Lipid panel; Future jheck lipid panel Morbid obesity ([facility]) She is obese. It is contributing to DM HTN and high cholesterol . She would benefit from wt loss. 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 ([facility]) F/U with specialists as dir. documented in this encounter [facility] 12-30-2023 Note [facility] CARDIOLOGY PROGR ESS NOTE [...] or sooner as needed Robert Long MD [facility] 12-30-2023 Note Patient here for fol low [...] deny chest pain, SOB, palpitations, and lightheadedness/syncope. [facility] 12-23-2023 History of Present illness Narrative Subjective [...] over time. She should stay on it [employer]. 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 ([facility]) GFR reviewed and is stable at 55. No dosing adjustments required. Other orders - allopurinoL (ZYLOPRIM) 100 mg tablet; Take 1 tablet (100 mg total) by mouth in the morning. Start after flare up resolves. documented in this encounter [facility] 12-23-2023 Evaluation note Diagnosis Acute gout due to renal impairment involving toe of right foot- Primary 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 ([facility]) documented in this encounter [facility]01-26-2024 NoteContinue lasix 20 mg daily, stop norvasc, repeat echocardiogramUnTriHealth [facility]01-26-2024 NoteDOE and BLE edema will order echocardiogram to assess cardiac function, diastolic function and valvular function RTC after echo completedUnTriHealth McCullough-Hy[facility]01-26-2024 Note Hypertension is controlled and hypotensive despite not taking lisinopril 40 mg the last 2 days. Asked pt to stop norvasc and to hold lisinopril if SBP < 100 and she voiced understandingUnTriHealth McCullough-Hyde Memorial Hospital01-26-2024 Note Continue crestor 10 mg dailyC[facility]01-[facility]-2024 Note [facility] CARDIOLOGY PROGRESS NOTE HPI: [...] lasix 20 mg daily, stop norvasc, repeat echocardiogramC[facility]01-26-2024 NotePatient here for 3 mo follow up [...] pain. All other systems reviewed and are negative.[facility] 08-29-2023 NoteCardiology Clinic Note Subjective Tosha Mcneal [...] mild unilateral left lower (more content not included)...[facility]10-23-2023 NotePatient here for surgery clearance prior to TKA. Doing well from cardiac standpoint, as she denies chest pain, SOB, and palpitations. Her LLE edema is no more than usual she states. Review of Systems Cardiovascular: Positive for leg swelling (LLE, intermittent). Musculoskeletal: Positive for arthritis and joint pain. All other systems reviewed and are negative.[facility] 05-17-2023 NoteCardiology Clinic Note Subjective Tosha Mcneal [...] 6 months (around 11/17/2023). Perry Manuel APRN-AUTUMN [facility] Cardiovascular MedicineUnTriHealth [facility]07-11-2023 NotePatient here for 6 mo follow up HFpEF, hypertension, and hyperlipidemia. She had routine labs in February 2023. Denies chest pain and SOB. Doing very well. Review of Systems Cardiovascular: Positive for leg swelling (LLE, intermittent). Musculoskeletal: Positive for arthritis and joint pain. All other systems reviewed and are negative.[facility] 04-13-2023 Progress note Author Rose Ohara [facility] April 13, 2023 5:59pm Note Date/Time April 13, 2023 9:30a m [facility] at [address] [address] Hem/Onc Follow Up Note - OP Signed Patient: Tosha Mcneal MR#: [id number] : 1950 Acct:[id number] Age/Sex: 72 / F Type: REG RCR [...] She is leaving for a cruise to [place] this month. Continue 4 month followup with [...] related toxicities. Now following with dermatology at [facility] with no recurrence on skin exam. Surveillance ultrasound right axilla without recurrence. She will have routing f/u with [place] [address] CAP and [...] Hernando Mccartney. She follows with Dr. Wild Stone. 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 There was ulceration with tumor infiltrating lymphocytes but no lymphovascular invasion. There was positive margins involved. She was referred to general surgery with Dr. Hernando Mccartney who proceeded with wide local excision 09/05/2020 at [facility]. Outside review at [facility] showed at least 2.1 cm Breslow depth melanoma with 2 cm negative margins. She was referred to Dr. Cedrick Berger at [facility]. Right axillary sentinel lymph node biopsy performed [...] liver lesion. Her case was presented at [facility] cutaneous tumor board on 12/15/2020rior to her metastatic staging. Discussion of referral to medical oncology fordiscussion of immunotherapy. The patient is now returning for medical oncology follow-up after review of all prior pathology and imaging. BRAF status is stillpending. She has healed well. She is a 10-year history of diabetes. She resides in [facility]. Today we reviewed immunotherapy counseling for nivolumab. [...] Therapies: 1. Initial wide local excision at [facility] 09/05/[address] Hernando Mccartney 2. Right sentinel lymph node biopsy 11/28/2020 at [facility] by Dr. Cedrick Berger 3. Delay of [...] % (Auto) 62.3, Lymph % (Auto) 26.0, Ada % (Auto) 8.6, Eos % (Auto) 2.2, Baso % (Auto) 0.9, Nucleat RBC Rel Count 0.1, Neut # (Auto) 4.3, Lymph # (Auto) 1.8, Ada # (Auto) 0.6, Eos # (Auto) 0.2, [...] Plan - TNM Staging Staging: Stage: pIIIC ([id number]) Melanoma 5 year survival: 69% (1) Melanoma [...] without extracapsular extension. Dr. Cedrick Berger at [facility] surgical oncology group ordered metastatic staging with [...] for coordination of care (as documented) and azbz-il-wzpp counseling of patient and/or family. Dictated By: Rose Ohara MD DD/ [id number] Signed By: <Electronically signed by MD Rose Ohara> 04/13/23 [address] [facility] Work Phone: 1(221) 866-288402-16-2023 Progress note Author [facility] December 23, 2022 11:01am Note Date/Time December 23, 2022 9:06am [facility] at [place] [id number] Hem/Onc Follow Up Note - OP Signed Patient: Tosha Mcneal MR#: [id number] : 1950 Acct:[id number] Age/Sex: 72 / F Type: REG RCR [...] chest abdomen pelvis and labs are unremarkable. Bahmanaria set up her right axillary ultrasound in [...] related toxicities. Now following with dermatology at [facility] with no recurrence on skin exam. Surveillance ultrasound right axilla without recurrence. She will have routing f/u with [place] in [address] CAP and [...] Hernando Mccartney. She follows with Dr. Wild Stone. 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 There was ulceration with tumor infiltrating lymphocytes but no lymphovascular invasion. There was positive margins involved. She was referred to general surgery with Dr. Hernando Mccartney who proceeded with wide local excision 09/05/2020 at [facility]. Outside review at [facility] showed at least 2.1 cm Breslow depth melanoma with 2 cm negative margins. She was referred to Dr. Cedrick Berger at [facility]. Right axillary sentinel lymph node biopsy performed [...] liver lesion. Her case was presented at [facility] cutaneous tumor board on 12/15/2020rior to her metastatic staging. Discussion of referral to medical oncology fordiscussion of immunotherapy. The patient is now returning for medical oncology follow-up after review of all prior pathology and imaging. BRAF status is stillpending. She has healed well. She is a 10-year history of diabetes. She resides in [facility]. Today we reviewed immunotherapy counseling for nivolumab. [...] Therapies: 1. Initial wide local excision at [facility] 09/05/[address] Hernando Mccartney 2. Right sentinel lymph node biopsy 11/28/2020 at [facility] by Dr. Cedrick Berger 3. Delay of [...] % (Auto) 60.2, Lymph % (Auto) 24.8, Ada % (Auto) 11.9, Eos % (Auto) 1.9, Baso % (Auto) 1.2, Nucleat RBC Rel Count 0.2, Neut # (Auto) 4.1, Lymph # (Auto) 1.7, Ada # (Auto) 0.8, Eos # (Auto) 0.1, [...] chest, abdomen or pelvis. Impression dictated by: Myron Stevens Jr.OPablo12/21/2022 1:50 PM Assessment and Plan - TNM Staging Staging: Stage: pIIIC ([id number]) Melanoma 5 year survival: 69% (1) Melanoma [...] without extracapsular extension. Dr. Cedrick Berger at [facility] surgical oncology group ordered metastatic staging with [...] follow-up with primary physician. Next follow-up with nj for CT chest abdomen pelvis with surveillance [...] for coordination of care (as documented) and otzg-gr-grhd counseling of patient and/or family. Dictated By: Rose Ohara MD DD/ 4 Signed By: <Electronically signed by MD Rose Ohara> 12/23/22 [address] [facility] Work Phone: 1(331) 710-978411-17-2022 Progress note Author Rose Ohara [facility] September 23, 2022 10:21am Note Date/Time September 23, 2022 8:36am [facility] [place] [address] Hem/Onc Follow Up Note - OP Signed Patient: Tosha Mcneal MR#: [id number] : 1950 Acct:[id number] Age/Sex: 71 / F Type: REG RCR [...] related toxicities. Now following with dermatology at [facility] with no recurrence on skin exam. Surveillance ultrasound right axilla without recurrence. She will have routing f/u with [place] in [address] CAP and [...] Hernando Mccartney. She follows with Dr. Wild Stone. 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 There was ulceration with tumor infiltrating lymphocytes but no lymphovascular invasion. There was positive margins involved. She was referred to general surgery with Dr. Hernando Mccartney who proceeded with wide local excision 09/05/2020 at [facility]. Outside review at [facility] showed at least 2.1 cm Breslow depth melanoma with 2 cm negative margins. She was referred to Dr. Cedrick Berger at [facility]. Right axillary sentinel lymph node biopsy performed [...] liver lesion. Her case was presented at [facility] cutaneous tumor board on 1prior to her metastatic staging. Discussion of referral to medical oncology fordiscussion of immunotherapy. The patient is now returning for medical oncology follow-up after review of all prior pathology and imaging. BRAF status is stillpending. She has healed well. She is a 10-year history of diabetes. She resides in [facility]. Today we reviewed immunotherapy counseling for nivolumab. [...] Therapies: 1. Initial wide local excision at [facility] 09/05/[address] Hernando Mccartney 2. Right sentinel lymph node biopsy 11/28/2020 at [facility] by Dr. Cedrick Berger 3. Delay of [...] cit 4.5 mg-lutein 2.5 mg-zeaxan chew tablet ([employer]) 1 tab PO DAILY eye [...] % (Auto) 65.7, Lymph % (Auto) 21.6, Ada % (Auto) 9.7, Eos % (Auto) 2.0, Baso % (Auto) 1.0, Neut # (Auto) 4.5, Lymph # (Auto) 1.5, Ada # (Auto) 0.7, Eos# (Auto) 0.1, Baso [...] Plan - TNM Staging Staging: Stage: pIIIC ([id number]) Melanoma 5 year survival: 69% (1) Melanoma [...] without extracapsular extension. Dr. Cedrick Berger at [facility] surgical oncology group ordered metastatic staging with [...] for coordination of care (as documented) and umzp-ut-ozuc counseling of patient and/or family. Dictated By: Rose Ohara MD DD/ Signed By: <Electronically signed by MD Rose Ohara> 09/23/22 [address] [facility] Work Phone: 1(611) 263-181808-25-2022 Progress note Author Rose Ohara [facility] July 01, 2022 8:35pm Note Date/Time July 01, 2022 10 :39am [facility] [place] [address] Hem/Onc Follow Up Note - OP Signed Patient: Tosha Mcneal MR#: [id number] : 1950 Acct:[id number] Age/Sex: 71 / F Type: REG RCR [...] related toxicities. Now following with dermatology at [facility] with no recurrence on skin exam. Surveillance ultrasound right axilla without recurrence. She will have routing f/u with [place] in [address] CAP and [...] Hernando Mccartney. She follows with Dr. Wild Stone. 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 There was ulceration with tumor infiltrating lymphocytes but no lymphovascular invasion. There was positive margins involved. She was referred to general surgery with Dr. Hernando cMcartney who proceeded with wide local excision 09/05/2020 at [facility]. Outside review at [facility] showed at least 2.1 cm Breslow depth melanoma with 2 cm negative margins. She was referred to Dr. Cedrick Berger at [facility]. Right axillary sentinel lymph node biopsy performed [...] liver lesion. Her case was presented at [facility] cutaneous tumor board on 12/15/2020rior to her metastatic staging. Discussion of referral to medical oncology fordiscussion of immunotherapy. The patient is now returning for medical oncology follow-up after review of all prior pathology and imaging. BRAF status is stillpending. She has healed well. She is a 10-year history of diabetes. She resides in [facility]. Today we reviewed immunotherapy counseling for nivolumab. [...] Therapies: 1. Initial wide local excision at [facility] 09/05/[address] Hernando Mccartney 2. Right sentinel lymph node biopsy 11/28/2020 at [facility] by Dr. Cedrick Berger 3. Delay of [...] % (Auto) 66.8, Lymph % (Auto) 18.8, Ada % (Auto) 9.5, Eos % (Auto) 3.7, Baso % (Auto) 1.2, Neut # (Auto) 5.6, Lymph # (Auto) 1.6, Ada # (Auto) 0.8, Eos #(Auto) 0.3, Baso [...] Plan - TNM Staging Staging: Stage: pIIIC ([id number]) Melanoma 5 year survival: 69% (1) Melanoma [...] without extracapsular extension. Dr. Cedrick Berger at [facility] surgical oncology group ordered metastatic staging with [...] for coordination of care (as documented) and sdee-by-vmya counseling of patient and/or family. Dictated By: Rose Ohara MD DD/ 1038 Signed By: <Electronically signed by MD Rose Ohara> 07/01/222034 [facility] Work Phone: 1(923) 258-747605-26-2022 Progress note Author Rose Ohara [facility] April 01, 2022 1:09pm Note Date/Time March 31, 2022 1:30p m [facility] [place] [address] Hem/Onc Follow Up Note - OP Signed Patient: Tosha Mcneal MR#: [id number] : 1950 Acct:[id number] Age/Sex: 71 / F Type: REG RCR [...] related toxicities. Now following with dermatology at [facility] with no recurrence on skin exam. Surveillance ultrasound right axilla without recurrence. She will have routing f/u with [place] in [address] CAP and [...] Hernando Mccartney. She follows with Dr. Wild Stone. 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 There was ulceration with tumor infiltrating lymphocytes but no lymphovascular invasion. There was positive margins involved. She was referred to general surgery with Dr. Hernando Mccartney who proceeded with wide local excision 09/05/2020 at [facility]. Outside review at [facility] showed at least 2.1 cm Breslow depth melanoma with 2 cm negative margins. She was referred to Dr. Cedrick Berger at [facility]. Right axillary sentinel lymph node biopsy performed11/28/2020 [...] liver lesion. Her case was presented at [facility] cutaneous tumor board on 12/15/2020rior to her metastatic staging. Discussion of referral to medical oncology fordiscussion of immunotherapy. The patient is now returning for medical oncology follow-up after review of all prior pathology and imaging. BRAF status is stillpending. She has healed well. She is a 10-year history of diabetes. She resides in [facility]. Today we reviewed immunotherapy counseling for nivolumab. [...] Therapies: 1. Initial wide local excision at [facility] 09/05/[address] Hernando Mccartney 2. Right sentinel lymph node biopsy 11/28/2020 at [facility] by Dr. Cedrick Berger 3. Delay of [...] cit 4.5 mg-lutein 2.5 mg-zeaxan chew tablet ([employer]) 1 tab PO DAILY 04/11/19 [History Confirmed [...] % (Auto) 64.5, Lymph % (Auto) 22.3, Ada % (Auto) 9.5, Eos % (Auto) 2.6, Baso % (Auto) 1.1, Neut # (Auto) 4.8, Lymph # (Auto) 1.7, Ada # (Auto) 0.7, Eos# (Auto) 0.2, Baso [...] nonvascular Impression: Unremarkable study. Impression dictated by: Myron Stevens Jr.OPablo03/29/2022 12:30 PM Assessment and Plan - TNM Staging Staging: Stage: pIIIC ([id number]) Melanoma 5 year survival: 69% (1) Melanoma [...] without extracapsular extension. Dr. Cedrick Berger at [facility] surgical oncology group ordered metastatic staging with [...] for coordination of care (as documented) and hofe-wr-uzhl counseling of patient and/or family. Dictated By: Rose Ohara MD DD/ 1330 Signed By: <Electronically signed by MD Rose Ohara> 04/01/22 [address] [facility] Work Phone: 1(952) 407-659702-23-2022 Progress note Author Rose Ohara [facility] December 30, 2021 3:45pm Note Date/Time December 30, 2021 10:04[facility] [place] [id number] Hem/Onc Follow Up Note - OP Signed Patient: ElizabetTosha mahajan MR#: [id number] : 1950 Acct:[id number] Age/Sex: 71 / F Type: REG RCR [...] related toxicities. Now following with dermatology at [facility] with no recurrence on skin exam. Surveillance ultrasound right axilla without recurrence. She will have routing f/u with [place] [address] CAP and [...] Hernando Mccartney. She follows with Dr. Wild Stone. 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 There was ulceration with tumor infiltrating lymphocytes but no lymphovascular invasion. There was positive margins involved. She was referred to general surgery with Dr. Hernando Mccartney who proceeded with wide local excision 09/05/2020 at [facility]. Outside review at [facility] showed at least 2.1 cm Breslow depth melanoma with 2 cm negative margins. She was referred to Dr. Cedrick Berger at [facility]. Right axillary sentinel lymph node biopsy performed [...] liver lesion. Her case was presented at [facility] cutaneous tumor board on 12/15/2020rior to her metastatic staging. Discussion of referral to medical oncology fordiscussion of immunotherapy. The patient is now returning for medical oncology follow-up after review of all prior pathology and imaging. BRAF status is stillpending. She has healed well. She is a 10-year history of diabetes. She resides in [facility]. Today we reviewed immunotherapy counseling for nivolumab. [...] Therapies: 1. Initial wide local excision at [facility] 09/05/[address] Hernando Mccartney 2. Right sentinel lymph node biopsy 11/28/2020 at [facility] by Dr. Cedrick Berger 3. Delay of [...] cit 4.5 mg-lutein 2.5 mg-zeaxan chew tablet ([employer]) 1 tab PO DAILY 04/11/19 [History Confirmed [...] Plan - TNM Staging Staging: Stage: pIIIC ([id number]) Melanoma 5 year survival: 69% (1) Melanoma [...] without extracapsular extension. Dr. Cedrick Berger at [facility] surgical oncology group ordered metastatic staging with [...] for coordination of care (as documented) and endj-fx-ocwb counseling of patient and/or family. Dictated By: Rose Ohara MD DD/ 1004 Signed By: <Electronically signed by MD Rose Ohara> 12/30/21 1547 [facility] Work Phone: 1(106) 120-470011-25-2021 Progress note Author Rose Ohara [facility] October 01, 2021 12:50pm Note Date/Time September 30, 2021 10:46am [facility] [place] [address] Hem/Onc Follow Up Note - OP Signed with Addenda Patient: Tosha Mcneal MR#: [id number] : 1950 Acct:[id number] Age/Sex: 70 / F Type: REG RCR Copies to: DO Bj Haddad MD Richard M Wiecek, MD~ ADDENDUM1 Correction 09/30/2021: Second line should note Tube Coverer is Dr. Bj Robison in [place]--last skin exam 09/29/2021. Addendum Dictated By: MD [...] related toxicities. Now following with dermatology at [facility] with no recurrence on skin [...] Hernando Mccartney. She follows with Dr. Wild Stone. 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 There was ulceration with tumor infiltrating lymphocytes but no lymphovascular invasion. There was positive margins involved. She was referred to general surgery with Dr. Hernando Mccartney who proceeded with wide local excision 09/05/2020 at [facility]. Outside review at [facility] showed at least 2.1 cm Breslow depth melanoma with 2 cm negative margins. She was referred to Dr. Cedrick Berger at [facility]. Right axillary sentinel lymph node biopsy performed [...] liver lesion. Her case was presented at [facility] cutaneous tumor board on 12/15/2020rior to her metastatic staging. Discussion of referral to medical oncology fordiscussion of immunotherapy. The patient is now returning for medical oncology follow-up after review of all prior pathology and imaging. BRAF status is stillpending. She has healed well. She is a 10-year history of diabetes. She resides in [facility]. Today we reviewed immunotherapy counseling for nivolumab. [...] Therapies: 1. Initial wide local excision at [facility] 09/05/[address] Hernando Mccartney 2. Right sentinel lymph node biopsy 11/28/2020 at [facility] by Dr. Cedrick Berger 3. Delay of [...] cit 4.5 mg-lutein 2.5 mg-zeaxan chew tablet ([employer]) 1 tab PO DAILY 04/11/19 [History Confirmed [...] Plan - TNM Staging Staging: Stage: pIIIC ([id number]) Melanoma 5 year survival: 69% (1) Melanoma [...] without extracapsular extension. Dr. Cedrick Berger at [facility] surgical oncology group ordered metastatic staging with [...] for coordination of care (as documented) and xegv-vx-opzu counseling of patient and/or family. Dictated By: Rose Ohara MD DD/ 1046 Signed By: <Electronically signed by MD Rose Ohara> 09/30/21 3816 [facility] Work Phone: 1([phone]) 627-585208-23-2021 Progress note Author Rose Ohara [facility] June 29, 2021 6:03pm Note Date/Time June 29, 2021 10 :48am [facility] [place] [id number] Hem/Onc Follow Up Note - OP Signed Patient: Tosha Mcneal MR#: [id number] : 1950 Acct:[id number] Age/Sex: 70 / F Type: REG RCR Copies to: Wild Stone,DO Mohan Mccartney MD~ Subjective Date/Time of Service: [...] Hernando Mccartney. She follows with Dr. Wild Stone. 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 There was ulceration with tumor infiltrating lymphocytes but no lymphovascular invasion. There was positive margins involved. She was referred to general surgery with Dr. Hernando Mccartney who proceeded with wide local excision 09/05/2020 at [facility]. Outside review at [facility] showed at least 2.1 cm Breslow depth melanoma with 2 cm negative margins. She was referred to Dr. Cedrick Berger at [facility]. Right axillary sentinel lymph node biopsy performed [...] liver lesion. Her case was presented at [facility] cutaneous tumor board on 1prior to her metastatic staging. Discussion of referral to medical oncology fordiscussion of immunotherapy. The patient is now returning for medical oncology follow-up after review of all prior pathology and imaging. BRAF status is stillpending. She has healed well. She is a 10-year history of diabetes. She resides in [facility]. Today we reviewed immunotherapy counseling for nivolumab. [...] Therapies: 1. Initial wide local excision at [facility] 09/05/[address] Hernando Mccartney 2. Right sentinel lymph node biopsy 11/28/2020 at [facility] by Dr. Cedrick Berger 3. Delay of [...] cit 4.5 mg-lutein 2.5 mg-zeaxan chew tablet ([employer]) 1 tab PO DAILY 04/11/19 [History Confirmed [...] Plan - TNM Staging Staging: Stage: pIIIC ([id number]) Melanoma 5 year survival: 69% (1) Melanoma [...] without extracapsular extension. Dr. Cedrick Berger at [facility] surgical oncology group ordered metastatic staging with [...] for coordination of care (as documented) and ygsj-dr-pkaq counseling of patient and/or family. Dictated By: Rose Ohara MD DD/ 1048 Signed By: <Electronically signed by MD Rose Ohara> 06/29/21 1800 [facility] Work Phone: [phone] Progress note Author Rose Ohara [facility] March 23, 2021 9:29am Note Date/Time March 23, 2021 9:09a m [facility] [place] [address] Hem/Onc Follow Up Note - OP Signed Patient: Tosha Mcneal MR#: [id number] : 1950 Acct:[id number] Age/Sex: 70 / F Type: REG RCR Copies to: Wild Stone,MD Mohan Dukes MD~ Subjective Date/Time of Service: [...] Hernando Mccartney. She follows with Dr. Wild Stone. 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 There was ulceration with tumor infiltrating lymphocytes but no lymphovascular invasion. There was positive margins involved. She was referred to general surgery with Dr. Hernando Mccartney who proceeded with wide local excision 09/05/2020 at [facility]. Outside review at [facility] showed at least 2.1 cm Breslow depth melanoma with 2 cm negative margins. She was referred to Dr. Cedrick Berger at [facility]. Right axillary sentinel lymph node biopsy performed [...] liver lesion. Her case was presented at [facility] cutaneous tumor board on 1prior to her metastatic staging. Discussion of referral to medical oncology fordiscussion of immunotherapy. The patient is now returning for medical oncology follow-up after review of all prior pathology and imaging. BRAF status is stillpending. She has healed well. She is a 10-year history of diabetes. She resides in [facility]. Today we reviewed immunotherapy counseling for nivolumab. [...] Therapies: 1. Initial wide local excision at [facility] 09/05/[address] Hernando Mccartney 2. Right sentinel lymph node biopsy 11/28/2020 at [facility] by Dr. Cedrick Berger 3. Delay of [...] % (Auto) 69.8, Lymph % (Auto) 16.9, Ada % (Auto) 9.7, Eos % (Auto) 2.4, Baso % (Auto) 1.2, Neut # (Auto) 5.1, Lymph # (Auto) 1.2, Ada # (Auto) 0.7, Eos # (Auto) 0.2, [...] Plan - TNM Staging Staging: Stage: pIIIC ([id number]) Melanoma 5 year survival: 69% (1) Melanoma [...] without extracapsular extension. Dr. Cedrick Berger at [facility] surgical oncology group ordered metastatic staging with [...] for coordination of care (as documented) and zenr-cx-wypu counseling of patient and/or family. Dictated By: Rose Ohara MD DD/ 7 Signed By: <Electronically signed by MD Rose Ohara> 03/23/2129 [facility] Work Phone: 1(808) 849-415604-05-2021 Progress note Author Rose Ohara [facility] February 09, 2021 1:28pm Note Date/Time February 09, 2021 8:07 am [facility] [place] [address] Hem/Onc Follow Up Note - OP Signed Patient: Tosha Mcneal MR#: [id number] : 1950 Acct:[id number] Age/Sex: 70 / F Type: REG RCR [...] Hernando Mccartney. She follows with Dr. Wild Stone. 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 There was ulceration with tumor infiltrating lymphocytes but no lymphovascular invasion. There was positive margins involved. She was referred to general surgery with Dr. Hernando Mccartney who proceeded with wide local excision 09/05/2020 at [facility]. Outside review at [facility] showed at least 2.1 cm Breslow depth melanoma with 2 cm negative margins. She was referred to Dr. Cedrick Berger at [facility]. Right axillary sentinel lymph node biopsy performed [...] liver lesion. Her case was presented at [facility] cutaneous tumor board on 12/15/2020rior to her metastatic staging. Discussion of referral to medical oncology fordiscussion of immunotherapy. The patient is now returning for medical oncology follow-up after review of all prior pathology and imaging. BRAF status is stillpending. She has healed well. She is a 10-year history of diabetes. She resides in [facility]. Today we reviewed immunotherapy counseling for nivolumab. [...] Therapies: 1. Initial wide local excision at [facility] 09/05/[address] Hernando Mccartney 2. Right sentinel lymph node biopsy 11/28/2020 at [facility] by Dr. Cedrick Berger 3. Delay of [...] Plan - TNM Staging Staging: Stage: pIIIC ([id number]) Melanoma 5 year survival: 69% (1) Melanoma [...] without extracapsular extension. Dr. Cedrick Berger at [facility] surgical oncology group ordered metastatic staging with [...] for coordination of care (as documented) and kcok-kr-wubf counseling of patient and/or family. Dictated By: Rose Ohara MD DD/ [id number] Signed By: <Electronically signed by MD Rose Ohara> 02/09/21 1328 [facility] Work Phone: 1([phone]) 213-878711-25-2020 Consult note Author Bang Nunez [facility] October 01, 2020 11:21am Note Date/Time October 01, 2020 11:10am [facility] [place] [address] Hem/Onc Consult Note - OP Signed Patient: Tosha Mcneal MR#: [id number] : 1950 Acct:[id number] Age/Sex: 69 / F Type: REG RCR Copies to: DO Mohan Haddad MD~ HPI Date/Time of Service: Date of Service: 10/01/2020 Time of Service: 11:08 Referring Provider/PCP: Referring Provider: Mohan Mccartney MD PCP: Wild Stone DO - History of Present Illness Reason for Consultation: Melanoma Chief Complaint: New patient appt melanoma right arm HPI: This is a 69-year-old lady referred here by Dr. Hernando Mccartney. She follows with Dr. Wild Stone. She presented with a melanoma and was [...] 10-year history of diabetes. She resides in [facility]. [facility] - Medical History Medical History: Medical [...] refer her to Dr. Cedrick Berger at [facility] surgical oncology group for his opinion. I will see her back at a later date. - Time with Patient Coordination of Care & Counseling Time: Greater than 50% of time spent with patient was for coordination of care (as documented) and ylzb-vw-eiar counseling of patient and/or family. Dictated By: Bang Nunez MD DD/ 1108 Signed By: <Electronically signed by MD Bang Nunez> 10/01/20 1121 [facility] Work Phone: Evaluation note* Diagnosis Onset Date Resolution Status Diabetes mellitus chronic Encounter for antineoplastic immunotherapy chronic Enlarged pituitary gland chr onic Melanoma chronic [facility] Work Phone: Evaluation note* Diagnosis Onset Date Resolution Status Enlarged pituitary gland acu te Diabetes mellitus chronic Encounter for antineoplastic immunotherapy chronic Melanoma chronic [facility] Work Phone: Evaluation note* Diagnosis Onset Date Resolution Status Enlarged pituitary gland acu te Diabetes mellitus chronic Encounter for antineoplastic immunotherapy chronic Melanoma chronic Enlarged pituitary gland acu te Malignant melanoma of right upper limb, including shoulder acute Diabetes mellitus chronic [facility] Work Phone: Evaluation note* Diagnosis Aftercare following left knee joint replacement surgery- Primary Acute pain of left knee Stiffness of left knee Primary osteoarthritis of left knee documented in this encounter [facility] HealthcareEvaluation note* Diagnosis Aftercare following left knee joint replacement surgery- Primary Acute pain of left knee Stiffness of left knee Primary osteoarthritis of left knee documented in this encounter [facility] HealthcareEvaluation note* Diagnosis Aftercare following left knee joint replacement surgery- Primary Acute pain of left knee Stiffness of left knee Primary osteoarthritis of left knee documented in this encounter [facility] HealthcareEvaluation note* Diagnosis Type 2 diabetes mellitus with stage 3a chronic kidney disease, with long-term current use of insulin ([facility]-HCC)- Primary Gout, unspecified cause, unspecified chronicity, unspecified site Mixed hyperlipidemia Morbid obesity (CMS-HCC) Morbid obesity 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 (CMS-HCC) [facility] filedocumented in this encounter [facility] filedocumented in this encounter [facility] filedocumented in this encounter [facility] Author Rose Ohara [facility] July 01, 2022 8:35pm Note Date/Time July 01, 2022 10 :39am [facility] [place] [address] Hem/Onc Follow Up Note - OP Signed Patient: Tosha Mcneal MR#: [id number] : 1950 Acct:[id number] Age/Sex: 71 / F Type: REG RCR [...] related toxicities. Now following with dermatology at [facility] with no recurrence on skin exam. Surveillance ultrasound right axilla without recurrence. She will have routing f/u with [place] [address] CAP and [...] Hernando Mccartney. She follows with Dr. Wild Stone. 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 There was ulceration with tumor infiltrating lymphocytes but no lymphovascular invasion. There was positive margins involved. She was referred to general surgery with Dr. Henrando Mccartney who proceeded with wide local excision 09/05/2020 at [facility]. Outside review at [facility] showed at least 2.1 cm Breslow depth melanoma with 2 cm negative margins. She was referred to Dr. Cedrick Berger at [facility]. Right axillary sentinel lymph node biopsy performed [...] liver lesion. Her case was presented at [facility] cutaneous tumor board on 12/15/2020rior to her metastatic staging. Discussion of referral to medical oncology fordiscussion of immunotherapy. The patient is now returning for medical oncology follow-up after review of all prior pathology and imaging. BRAF status is stillpending. She has healed well. She is a 10-year history of diabetes. She resides in [facility]. Today we reviewed immunotherapy counseling for nivolumab. [...] Therapies: 1. Initial wide local excision at [facility] 09/05/[address] Hernando Mccartney 2. Right sentinel lymph node biopsy 11/28/2020 at [facility] by Dr. Cedrick Berger 3. Delay of [...] % (Auto) 66.8, Lymph % (Auto) 18.8, Ada % (Auto) 9.5, Eos % (Auto) 3.7, Baso % (Auto) 1.2, Neut # (Auto) 5.6, Lymph # (Auto) 1.6, Ada # (Auto) 0.8, Eos #(Auto) 0.3, Baso [...] Plan - TNM Staging Staging: Stage: pIIIC ([id number]) Melanoma 5 year survival: 69% (1) Melanoma [...] without extracapsular extension. Dr. Cedrick Berger at [facility] surgical oncology group ordered metastatic staging with [...] for coordination of care (as documented) and pjno-ar-gegb counseling of patient and/or family. Dictated By: Rose Ohara MD DD/ 1038 Signed By: <Electronically signed by MD Rose Ohara> 07/01/222034 [facility] Work Phone: Progress note Author Rose Ohara [facility] September 23, 2022 10:21am Note Date/Time September 23, 2022 8:36am [facility] [place] [address] Hem/Onc Follow Up Note - OP Signed Patient: Tosha Mcneal MR#: [id number] : 1950 Acct:[id number] Age/Sex: 71 / F Type: REG RCR [...] related toxicities. Now following with dermatology at [facility] with no recurrence on skin [...] Hernando Mccartney. She follows with Dr. Wild Stone. 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 There was ulceration with tumor infiltrating lymphocytes but no lymphovascular invasion. There was positive margins involved. She was referred to general surgery with Dr. Hernando Mccartney who proceeded with wide local excision 09/05/2020 at [facility]. Outside review at [facility] showed at least 2.1 cm Breslow depth melanoma with 2 cm negative margins. She was referred to Dr. Cedrick Berger at [facility]. Right axillary sentinel lymph node biopsy performed [...] liver lesion. Her case was presented at [facility] cutaneous tumor board on 1prior to her metastatic staging. Discussion of referral to medical oncology fordiscussion of immunotherapy. The patient is now returning for medical oncology follow-up after review of all prior pathology and imaging. BRAF status is stillpending. She has healed well. She is a 10-year history of diabetes. She resides in [facility]. Today we reviewed immunotherapy counseling for nivolumab. [...] Therapies: 1. Initial wide local excision at [facility] 09/05/[address] Hernando Mccartney 2. Right sentinel lymph node biopsy 11/28/2020 at [facility] by Dr. Cedrick Berger 3. Delay of [...] % (Auto) 65.7, Lymph % (Auto) 21.6, Ada % (Auto) 9.7, Eos % (Auto) 2.0, Baso % (Auto) 1.0, Neut # (Auto) 4.5, Lymph # (Auto) 1.5, Ada # (Auto) 0.7, Eos# (Auto) 0.1, Baso [...] Plan - TNM Staging Staging: Stage: pIIIC ([id number]) Melanoma 5 year survival: 69% (1) Melanoma [...] without extracapsular extension. Dr. Cedrick Berger at [facility] surgical oncology group ordered metastatic staging with [...] for coordination of care (as documented) and xejr-bd-vgvr counseling of patient and/or family. Dictated By: Rose Ohara MD DD/ 0835 Signed By: <Electronically signed by MD Rose Ohara> 09/23/22 1021 [facility] Work Phone: Progress note Author Rose Ohara [facility] April 13, 2023 5:59pm Note Date/Time April 13, 2023 9:30a m [facility] [place] [address] Hem/Onc Follow Up Note - OP Signed Patient: Tosha Mcneal MR#: [id number] : 1950 Acct:[id number] Age/Sex: 72 / F Type: REG RCR [...] She is leaving for a cruise to [place] this month. Continue 4 month followup with [...] related toxicities. Now following with dermatology at [facility] with no recurrence on skin [...] Hernando Mccartney. She follows with Dr. Wild Stone. 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 There was ulceration with tumor infiltrating lymphocytes but no lymphovascular invasion. There was positive margins involved. She was referred to general surgery with Dr. Hernando Mccartney who proceeded with wide local excision 09/05/2020 at [facility]. Outside review at [facility] showed at least 2.1 cm Breslow depth melanoma with 2 cm negative margins. She was referred to Dr. Cedrick Berger at [facility]. Right axillary sentinel lymph node biopsy performed [...] liver lesion. Her case was presented at [facility] cutaneous tumor board on 1prior to her metastatic staging. Discussion of referral to medical oncology fordiscussion of immunotherapy. The patient is now returning for medical oncology follow-up after review of all prior pathology and imaging. BRAF status is stillpending. She has healed well. She is a 10-year history of diabetes. She resides in [facility]. Today we reviewed immunotherapy counseling for nivolumab. [...] Therapies: 1. Initial wide local excision at [facility] 09/05/[address] Hernando Mccartney 2. Right sentinel lymph node biopsy 11/28/2020 at [facility] by Dr. Cedrick Berger 3. Delay of [...] % (Auto) 62.3, Lymph % (Auto) 26.0, Ada % (Auto) 8.6, Eos % (Auto) 2.2, Baso % (Auto) 0.9, Nucleat RBC Rel Count 0.1, Neut # (Auto) 4.3, Lymph # (Auto) 1.8, Ada # (Auto) 0.6, Eos # (Auto) 0.2, [...] Plan - TNM Staging Staging: Stage: pIIIC ([id number]) Melanoma 5 year survival: 69% (1) Melanoma [...] without extracapsular extension. Dr. Cedrick Berger at [facility] surgical oncology group ordered metastatic staging with [...] for coordination of care (as documented) and gurh-tm-zvad counseling of patient and/or family. Dictated By: Rose Ohara MD DD/ 0929 Signed By: <Electronically signed by MD Rose Ohara> 04/13/23 4924 [facility] Work Phone: Summary Purpose Family [...] right arm melanoma Surgeon: Cedrick Berger Resident/Fellow/Other Research Support Specialist: Ramiro Bhat Procedure: 1. RIGHT AXILLARY SENTINEL [...] section and content) DATE CREATED AUTHOR 10/24/2020 [email or web address] DATE CREATED AUTHOR AUTHOR'S ORGANIZ ATION 12/14/2020 [facility] DATE CREATED AUTHOR AUTHOR'S ORGANIZ ATION 10/07/2021 [facility] DATE CREATED AUTHOR AUTHOR'S ORGANIZ ATION 04/09/2022 [facility] DATE CREATED AUTHOR AUTHOR'S ORGANIZ ATION 03/07/2023 [facility] DATE CREATED AUTHOR AUTHOR'S ORGANIZ ATION 10/12/2023 [facility] DATE CREATED AUTHOR AUTHOR'S ORGANIZ ATION 11/10/2023 [facility] DATE CREATED AUTHOR AUTHOR'S ORGANIZ ATION 12/22/2023 [facility] DATE CREATED AUTHOR AUTHOR'S ORGANIZ ATION 01/05/2024 [facility] DATE CREATED AUTHOR AUTHOR'S ORGANIZ ATION 01/12/2024 [facility] DATE CREATED AUTHOR AUTHOR'S ORGANIZ ATION 03/22/2024 [facility] DATE CREATED AUTHOR AUTHOR'S ORGANIZ ATION 04/22/2024 [facility] Care Teams (unrecognized sec tion and content) Team Status: Active Member Role Status Dates Wild Stone DO Primary Care Provider Active Team Status: Inactive Member Role Status Dates Wild Stone DO Primary Care Provider Active Start: December 13, 2023 End: December 13, 2023 ELVIRA Campos Attending Provider Active S tart: December 13, 2023 End: December 13, 2023 Team Status: Active Member Role Status Dates Wild Stone DO Primary Care Provider Active Start: December 13, 2023 Mohan Mccartney MD Referring Provider Active Start: December 13, 2023 Rose Ohara MD Attending Provider Active Start: December 13, 2023 Team Status: Active Member Role Status Dates Wild Stone DO Primary Care Provider Active Bang Nunez MD Attending Provider Active Mohan Mccartney MD Referring Provider Active Team Status: Active Member Role Status Dates Wild Stone DO Primary Care Provider Active Mohan Mccartney MD Referring Provider Active Rose Ohara MD Attending Provider Active Team Status: Active Member Role Status Dates Wild Stone DO Primary Care Provider Active Start: December 15, 2023 Mohan Mccartney MD Referring Provider Active Start: December 15, 2023 Rose Ohara MD Attending Provider Active Start: December 15, 2023 Team Status: Inactive Member Role Status Dates Wild Stone DO Primary Care Provider Active Start: December 15, 2023 End: December 15, 2023 Rose Ohara MD Attending Provider Active Start: December 15, 2023 End: December 15, 2023 [employer] Maintainer Relationship Specialty Start Date End Date Unallocated, [place] [address] PCP - General Family Medicine 12/06/23 [employer] Maint[employer] Relationship Specialty Start Date End Date Unallocated, rFankies [place] [address] PCP - General Family Medicine 12/06/23 [employer] Maintainer Relationship Specialty Start Date End Date Unallocated, [place] Provider [address] [place] [address] PCP - General Family Medicine 12/06/23 [employer] Maintainer Relationship Specialty Start Date End Date Unallocated, [place] Provider [address] [place] [address] PCP - General Family Medicine 12/06/23 [employer] Maintainer Relationship Specialty Start Date End Date Unallocated, [place] Provider [address] [place] [address] PCP - General Family Medicine 12/06/23 [employer] Maintainer Relationship Specialty Start Date End Date Unallocated, [place] Provider [address] [place] [address] PCP - General Family Medicine 12/06/23 [employer] Maintainer Relationship Specialty Start Date End Date Wild Stone DO [address] [place] [address] PCP - General Family Medicine 11/30/17 [employer] Maintainer Relationship Specialty Start Date End Date Wild Stone DO [address] [place] [address] PCP - General Family Medicine 11/30/17 [employer] Maintainer Relationship Specialty Start Date End Date Wild Stone DO [address] [place] [address] PCP - General Family Medicine 11/30/17 [employer] Maintainer Relationship Specialty Start Date End Date Wild Stone DO [address] [place] [address] PCP - General Family Medicine 11/30/17 [employer] Maintainer Relationship Specialty Start Date End Date Wild Stone DO [address] [facility], [place] [address] PCP - General Family Medicine 11/30/17 Goals [...] total knee replacement using cement, left Procedures SC MANUAL THERAPY TQS 1/> REGIONS EACH 15 MINUTES PHYS/OCC THERAPY SS SC THERAPEUTIC PX 1/> AREAS EACH 15 MIN EXERCISES SC THER PX 1/> AREAS EACH 15 MIN NEUROMUSC REEDUCA Aly Higgins MD [address] [place] [address] Aman Yu, PT [address] [facility] [address] [place] [address] Referral ID Status Reason Start Date Expiration Date Visits Re quested Visits Authorized [id number] Closed 11/07/2023 10/19/2024 1 10 Referral ID Status Reason Start Date Expiration Date V isits Requested Visits Authorized [id number] Authorized 12/19/2023 10/02/2025 28 28 Reason Comments [...] BE BASED ON THE PRIMARY CLINICAL RECORDS. [facility] [employer] [facility]. provides no warranty or guarantee of the accuracy or completeness of information in this document.
[2024-04-27 10:31] LABS: Anion Gap 16.9; BUN Creatinine Ratio 31.2; Calcium 9.1 mg/dL (8.5-10.1); Carbon Dioxide 22.2 mmol/L (21.0-32.0); Chloride 106 mmol/L (98-107); Estimated GFR (African America 44 (>=60); Estimated GFR (Non-African Ame 36 (>=60); Glucose 223 mg/dL (74-106); Potassium 5.1 mmol/L (3.5-5.1); Sodium 140 mmol/L (136-145)
== END 2024-04-27 08:34 | disposition home or self-care (01) ==
LOC: LAB 08:35
PROVIDERS: PCP Family Medicine; Visit Provider Internal Medicine Cardiovascular Disease
DX: E87.5 Hyperkalemia (principal)
CPT/HCPCS: 36415; 80048

== ENCOUNTER 2024-06-20 10:13 | Outpatient (OUT) | payer MEDICARE, OTHER, SELFPAY ==
[2024-06-20 12:22] LABS: Anion Gap 13.9; BUN Creatinine Ratio 20.8; Calcium 9.8 mg/dL (8.5-10.1); Carbon Dioxide 27.3 mmol/L (21.0-32.0); Chloride 103 mmol/L (98-107); Estimated GFR (African America >60 (>=60); Estimated GFR (Non-African Ame 51 (>=60); Glucose 213 mg/dL (74-106); Potassium 4.2 mmol/L (3.5-5.1); Sodium 140 mmol/L (136-145)
== END 2024-06-20 10:14 | disposition home or self-care (01) ==
LOC: LAB 10:14
PROVIDERS: PCP Family Medicine; Visit Provider Nurse Practitioner
DX: I11.0 Hypertensive heart disease with heart failure (principal); R60.0 Localized edema
CPT/HCPCS: 36415; 80048

== ENCOUNTER 2024-08-21 12:08 | Emergency (ER) | payer MEDICARE, OTHER, SELFPAY ==
[2024-08-21 12:13] VITALS: BP 187/65; PULSE 71; TEMP 36.9; O2SAT 94; BMI 41.0
--- OUTSIDE RECORDS SUMMARY | 2024-08-21 12:19 | XMS_ITS | CCD ---
Author Organization [facility] CliniSyct Care Team Providers Care Toddler Teacher Name Role Phone Furlong, Wild G Unavailable Unavailable Scheufele, Denominational Unavailable Unavailable Furlong, DO Wild Primary Care Provider MD Bang Nunez Attending Provider Unavailable MD Mohan Mccartney Referring Provider Furlong, DO Wild Primary Care Provider [phone] MD Bang Nunez Attending Provider Unavailable MD [...] Furlong, DO Wild Primary Care Provider Bonita CHEMICAL TEST ENGINEER-C Irma Attending Provider MD Mohan Mccartney Referring Provider MD Rose Ohara Attending Provider MD Mohan Mccartney Referring Provider MD Rose Ohara Attending Provider Unallocated, Noms Provider Primary Care Provider Furlong, Wild Primary Care Unavailable Mohan Mccartney Referring Unavailable Lev, Rose Attending Unavailable Lev, Rose Admitting Unavailable Furlong, Wild [facility] Care Unavailable Bonita, Irma Attending Unavailable Bonita, [...] Attending Unavailable RONALDO, ALY E Referring Unavailable DIVINESHAN Attending Unavailable KELBLEY, IRMA Attending Unavailable RONALDO, ALY E Referring Unavailable KELBLEY, IRMA Attending Unavailable RONALDO, ALY E Referring Unavailable KELBLEY, IRMA Attending Unavailable RONALDO, ALY E Referring Unavailable FURLONG, WILD G Attending Unavailable FURLONG, WILD G Referring Unavailable FURLONG, WILD G Primary Care Unavailable BONITA, IRMA Attending Unavailable WITHERELLPERRY Attending Unavailable ALGHOTHANI, MOHAMAD Attending Unavailable BONITA, IRMA Attending Unavailable ALGHOTHANI, MOHAMAD Attending Unavailable ALGHOTHANI, MOHAMAD Attending Unavailable FURLONG, WILD G Referring Unavailable [...] Unavailable FURLONG, WILD G Primary Care Unavailable GIUSEPPE ELLIS Attending Unavailable FURLONG, WILD G Referring Unavailable FURLONG, WILD G Primary Care Unavailable Allergies Allergy Classification Reported Allergen(s) Allergy Type Date of Onset Reaction(s) Facility (1 source) No Alert Propensity to adverse reactions to drug 1 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 (1 source) empagliflozin; Translations: [EMPAGLIFLOZIN] Drug Allergy 4 [facility] Repository Medications Current Medications Medication Drug Class(es) Dates [...] due to type 2 diabetes mellitus (CMS-HCC) 1 Unit by miscellaneous route every 10 [...] 30 tablet 5 02/02/2024 Active Vit C-E-Zinc Pmo-Dwaxwk-Cxcmuh ([facility]) 50 mg-15 unit- 4.5 mg-2.5 mg Tablet,Chewable (7 sources) Start: 04-11-2019 take 1 tablet by mouth once daily Vit C-E-Zinc Afi-Awmhbu-Khtumf ([facility]) 50 mg-15 unit- 4.5 mg-2.5 mg Tablet,Chewable Active 1 TAB PO Daily April 11, 2019 8:39am Start: 04-11-2019 take 1 tablet by montrell th once daily Vit C-E-Zinc Qjq-Iljjvm-Ktuewn ([facility]) 50 mg-15 unit- 4.5 mg-2.5 mg Tablet,Chewable Active 1 TAB PO Daily April 10, 2019 11:00pm Start: 04-11-2019 take 1 tablet by montrell th once daily Vit C-E-Zinc Pbg-Dqnuni-Opetrr ([facility]) 50 mg-15 unit- 4.5 mg-2.5 mg Tablet,Chewable Active 1 TAB PO Daily April 11, 2019 12:00am (1 source) Completed/Discontinued Medications Medication Drug Class(es) Dates Sig (Normalized) Sig (Original) alendronic acid 35 mg oral tablet (12 sources) Bisphosphonate Start: 04-11-20 End: 12-15-19 take [...] source) gamma-Aminobutyri c Acid-ergic Agonist Start: 04-15-20 End: 12-23-19 24 take 1 tablet by [...] disease, or unspecified chronic kidney disease] Onset: 03-14-20 Complications of surgical procedures or medical care (5 sources) Dehiscence of surgical wound; Translations: [Disruption of external operation (surgical) wound, not elsewhere classified, initial encounter] Onset: 12-23-1912-23-2023 Episodic Congestive heart failure; nonhypertensive (2 sources) Chronic diastolic (congestive) heart failure; Translations: [Chronic diastolic (congestive) heart failure] Onset: 08-29-20 Chronic Diabetes mellitus with complications (15 sources) Type 2 diabetes mellitus with diabetic chronic kidney disease; Translations: [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 3 due to type 2 diabetes mellitus] Onset: 08-26-20 Chronic Diabetes mellitus without complication (20 sources) [...] Chronic Hypertension with complications and secondary hypertension (14 sources) Hypertensive chronic kidney disease with stage 1 through stage 4 chronic kidney disease, or unspecified chronic kidney disease; Translations: [Chronic kidney disease stage 2] Onset: 02-17-20 Resolved : 03-14-2003-14-2023 Chronic Immunizations and screening for infectious disease (1 source) Encounter for immunization; Translations: [Encounter for immunization] Onset: 08-16-20 Episodic Maintenance chemotherapy; radiotherapy (17 sources) Patient encounter [...] [HEART DISEASE UNSPECIFIED] Onset: 05-04-20 Chronic Other and ill-defined heart disease (2 sources) Other ill-defined heart diseases; Translations: [Other ill-defined heart diseases] Onset: 05-17-20 Chronic Other circulatory disease (1 source) H/O: [...] pituitary gland] 03-23-2021 Chronic Other endocrine disorders (9 sources) Other disorders of pituitary gland; Translations: [Other disorders of the pituitary and other syndromes of diencephalohypophyseal origin] Onset: 07-16-20 Chronic Other gastrointestinal disorders (5 sources) Irritable bowel syndrome; Translations: [Irritable bowel syndrome without diarrhea] Onset: 02-04-20 17 08-05-2022 Chronic Other liver diseases (5 sources) Fatty (change of) liver, not elsewhere classified; Translations: [Other chronic nonalcoholic liver disease] Onset: 02-17-20 22 08-05-2022 Chronic Other lower respiratory disease (2 sources) Other forms of dyspnea; Translations: [Other forms of dyspnea] Onset: 05-17-20 Episodic Other non-traumatic joint disorders (3 sources) Pain in left knee; Translations: [Pain in joint, lower leg] 12-14-2023 Episodic Other non-traumatic joint disorders (3 sources) Stiffness of left knee; Translations: [Stiffness of left knee, not elsewhere classified] 12-14-2023 Episodic Other nutritional; endocrine; and metabolic disorders (5 sources) Metabolic syndrome X; Translations: [Metabolic syndrome X] Onset: 08-05-2008-05-2022 Chronic Other nutritional; endocrine; and metabolic disorders (6 sources) Morbid obesity; Translations: [Morbid (severe) obesity due to excess calories] Onset: 04-08-2008-05-2022 Chronic Other nutritional; endocrine; and metabolic disorders (1 source) Morbid (severe) obesity due to excess calories; Translations: [Morbid (severe) obesity due to excess calories] Onset: 08-05-20 Chronic Other nutritional; endocrine; and metabolic disorders (1 source) H/O: diabetes mellitus; Translations: [History of diabetes mellitus] Episodic Other nutritional; endocrine; and metabolic disorders (1 source) History of hypercholesterolemia; Translations: [History of hypercholesterolemia] Episodic Other screening for suspected conditions (not mental disorders or infectious disease) (1 source) Encounter for screening mammogram for malignant neoplasm of breast; Translations: [Encounter for screening mammogram for malignant neoplasm of breast] Onset: 06-07-20 Episodic Other screening for suspected conditions (not mental disorders or infectious disease) (1 source) No current problems or disability Onset: 12-16-19 Spondylosis; intervertebral disc disorders; other back problems (5 sources) Degeneration of thoracic intervertebral disc; Translations: [Other intervertebral disc degeneration, thoracic region] Onset: 02-04-2008-05-2022 Chronic Spondylosis; intervertebral disc disorders; other back problems (1 source) Muscle spasm of back; Translations: [Muscle spasm of back] Onset: 08-16-20 Episodic Unclassified (1 source) Malignant melanoma of right upper limb, including shoulder; Translations: [Malignant melanoma of right upper limb, including shoulder] Onset: 12-15-19 Unclassified (1 source) Low back pain, unspecified; Translations: [Low back pain, unspecified] Onset: 08-16-20 Unclassified (1 source) gout in big toe Onset: 12-23-19 Past or Other Problems Problem Classification Problem Date Documented Da te Episodic/Chronic Fluid and electrolyte disorders (12 sources) Hypokalemia; Translations: [Hypokalemia] Onset: 02-03-2017 Resolved: 03-14-2023 03-14-2023 Episodic Mood disorders (5 sources) Mood disorders Onset: 12-23-2023 Resolved: 01-11-2024 12-23-2023 Other aftercare (3 sources) 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; Translations: [RESIDENTIAL CURRENT USE OF INSULIN] Onset: 08-05-2022 Episodic [...] unspecified] Onset: 08-05-2022 Resolved: 09-06-2022 09-06-2022 Episodic Residual codes; unclassified (2 sources) Localized edema; Translations: [Localized edema] Onset: 12-02-2023 Episodic Skull and face fractures (5 sources) Fracture of orbital floor; Translations: [Fracture of orbital floor, unspecified side, initial encounter for closed fracture] Onset: 04-03-2019 Resolved: 08-10-2022 08-10-2022 Episodic Results Test Name Value Interpretation Reference Range Facility HGB A1C (GLYCO-HGB)on 2023 Glucose [Mass/Vol] 197 mg/dL Normal [facility] Comment on above: Performed By: #### 3 016-3, HA1C #### [facility] ([id number]) [address], [address] [place] [address] HbA1c (Bld) [Mass fraction] 8.5 % High 4.4-5.6 [facility] Comment on above: Result Comment: NOTE ADA Guidelines Result HgbA1c Normal : less than 5.7 % Prediabetes : 5.7 % to 6.4 % Diabetes : > 6.4 % Use with caution in patients with abnormal hemoglobin variants as the half-life of red blood cells and in vivo glycation rates are affected. Performed By: #### 3 016-3, HA1C #### [facility] ([id number]) [address], [address] [place] [address] MICROALBUMIN - ALBUMIN:CREAT ININE URINE RATIOon 07-16-2024 ALB/CREAT RATIO NOT CALCULATED Normal 0.0-30.0 [facility] Comment on above: Result Comment: Result for Albumin/Creatinine Ratio cannot be reliably calculated because urine albumin and or urine creatinine is below the detection limit of the assay. Performed By: #### C , 94687-2, 06570-8, 2777-1, 3084-1, 2731-8, 54299-4 #### [facility] ([id number]) [address] [place] [address] Albumin DL <= 20 mg/L (U) [Mass/Vol] mg/dL Normal 0.0-1.9 [facility] Comment on above: Performed By: #### C MP, 77072-5, 71232-2, 2777-1, 3084-1, 2731-8, 01723-9 #### [facility] ([id number]) [address], [address] [address] URINE CREAT 74.02 mg/dL Normal [facility] Comment on above: Performed By: #### C MP, 19698-5, 64521-0, 2777-1, 3084-1, 2731-8, 35511-6 #### [facility] ([id number]) [address] [place] [address] TSH Qnon 07-16-2024 TSH 1.00 uIU/mL Normal 0.49-4.67 [facility] Comment on above: Performed By: #### 3 016-3, HA1C #### [facility] ([id number]) [address] [place] [address] Office Visiton 06-22-2024 Follow-up visit [id number] Renee Mcneal 1950 F Date Provider Department Center 06/22/2024 3848-ROBERT LONG [facility] Family History Problem Relation Age of Onset Coronary artery disease Father Heart attack Father Family Status - Relation Status Age at Father Level of Service:29689 DE OFFICE/OUTPATIENT ESTABLISHED MOD MDM 30 MIN Reason for Visit and Comments: Follow-up [769775] - 1 mo follow up Concerns: Lower extremity edema in left leg. No further cardiac symptoms/concerns. Normal 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 Computer aided detection was utilized. FINDINGS: The breasts are almost entirely fatty. There are no suspicious masses, calcifications, or areas of architectural distortion. IMPRESSION: No mammographic evidence of malignancy. BI-RADS: BI-RADS 1 - Negative Recommendation: Follow up per ACR recommendations or as clinically indicated.. Finalized by Ankit Avila MD on 06/07/2024 1:35 PM 1 a FU ACR Normal [facility] 37on 05-18-2024 37 Increase lasix to tw ice a day for next 2-3 days then return to daily dose Have blood drawn in 2-4 weeks *Continue heart healthy diet and low sodium [...] pillows than normal or in recliner. Normal [facility] Office Visiton 05-18-2024 Follow-up visit [id number] Renee Mcneal 1950 F Date Provider Department Center 05/18/2024 IRMA CARNYE Family History Problem Relation Age of Onset Coronary artery disease Father Heart attack Father Family Status - Relation Status Age at Father Level of Service:27117 DE OFFICE/OUTPATIENT ESTABLISHED MOD MDM 30 MIN [facility] 3605-15-2024 36 Per alg pt go to er she chose to come in this week Normal [facility] 3604-27-2024 36 I spoke with patient to make her aware of normal potassium level now. Asked her to check he BP 1-2 hours after meds to make sure it doesn't go higher without taking spironolactone now. She said when she had her echo it was 120/60. [facility] 04-20-2024 29 Addended by: HERRERA STOVER on: 04/20/2024 12:56 PM Modules accepted: Orders [facility] 3604-20-[address] Long stopp ed spironolactone and wants repeat BMP in 1 week. I spoke with patient and made her aware. Order faxed to [facility]. [facility] 3604-17-2024 36 Called patient to tejal sales her aware of normal EF and no valvular abnormalities on her echo. Noticed her potassium is still elevated at 5.6 after she stopped potassium last week. I asked Dr. Long for recommendations. [facility] 36on 04-03-2024 36 Regarding lab result s from 04/03/2024: I just spoke with patient to make sure she had cut back potassium to 10mEq's daily. She told me she had given me the wrong medication list when she was here in the office. I asked her to stop the potassium completely and have repeat BMP in about 1 week. Order faxed to [facility]. [facility] Telephoneon 04-03-2024 Telephone [id number] Renee Mcneal joleen Talavera 1950 F Date Provider Department Center 04/03/2024 928-HERRERA STOVER Family History Problem Relation Age of Onset Coronary artery disease Father Heart attack Father Family Status - Relation Status Age at Father [facility] Office Visiton 03-23-2024 Follow-up visit [id number] Colleen,Renee joleen Talavera 1950 F Date Provider Department Center 03/23/2024 3848-ROBERT LONG Family History Problem Relation Age of Onset Coronary artery disease Father Heart attack Father Family Status - Relation Status Age at Father Level of Service:40754 DE OFFICE/OUTPATIENT ESTABLISHED MOD MDM 30 MIN [facility] COMPREHENSIVE METABOLIC PANE Heladio 01-11-2024 Albumin [Mass/Vol] 4.2 g/dL Normal 3.2-5.3 [facility] Comment on above: Performed By: #### C MP, 67528-3, 46243-3, 2777-1, 3084-1, 2731-8, 21257-9 #### [facility] ([id number]) [address], [address] [place] [address] ALP [Catalytic activity/Vol] 74 U/L Normal 39-130 [facility] Comment on above: Performed By: #### C MP, 83930-3, 53689-9, 2777-1, 3084-1, 2731-8, 50155-3 #### [facility] ([id number]) [address], [address] [place] [address] ALT [Catalytic activity/Vol] 16 U/L Normal 0-31 [facility] Comment on above: Performed By: #### C MP, 79421-9, 06384-1, 2777-1, 3084-1, 2731-8, 45286-1 #### [facility] ([id number]) [address], [address] [place] [address] Anion gap [Moles/Vol] 11 mmol/L Normal 5-15 [facility] Comment on above: Performed By: #### C MP, 98285-6, 71445-0, 2777-1, 3084-1, 2731-8, 41342-4 #### [facility] ([id number]) [address], [address] [place] [address] AST [Catalytic activity/Vol] 13 U/L Normal 0-41 [facility] Comment on above: Performed By: #### C MP, 57416-1, 82784-0, 2777-1, 3084-1, 2731-8, 51168-9 #### [facility] ([id number]) [address], [address] [place] [address] Bilirubin [Mass/Vol] 0.9 mg/dL Normal 0.3-1.2 [facility] Comment on above: Performed By: #### C MP, 98966-5, 53262-9, 2777-1, 3084-1, 2731-8, 31639-3 #### [facility] ([id number]) [address], [address] [place] [address] Calcium [Mass/Vol] 9.7 mg/dL Normal 8.5-10.5 [facility] Comment on above: Performed By: #### C MP, 47427-1, 86816-5, 2777-1, 3084-1, 2731-8, 94335-1 #### [facility] ([id number]) [address], [address] [place] [address] Chloride [Moles/Vol] 106 mmol/L Normal 98-109 [facility] Comment on above: Performed By: #### C MP, 59945-1, 03932-7, 7-1, 3084-1, 2731-8, 82699-5 #### [facility] ([id number]) [address], [address] [place] [address] CO2 [Moles/Vol] 24 mmol/L Normal 22-32 [facility] Comment on above: Performed By: #### C MP, 95216-0, 63046-3, 2777-1, 3084-1, 2731-8, 04964-2 #### [facility] ([id number]) [address], [address] [place] [address] Creatinine [Mass/Vol] 0.84 mg/dL Normal 0.40-1.00 [facility] Comment on above: Result Comment: METH OD TRACEABLE TO IDMS STANDARD Performed By: #### C MP, 36306-0, 45386-5, 2777-1, 3084-1, 2731-8, 39856-1 #### [facility] ([id number]) [address] [place] [address] GFR/1.73 sq M.predicted among non-blacks MDRD (S/P/Bld) [Vol rate/Area] 73 mL/min/{1.73_m2} Normal >59 [facility] Comment on above: Result Comment: Reported eGFR is based on the CKD-EPI 2020 equation that does not use a race coefficient. Performed By: #### C SHANTE, 24443-5, 88142-1, 2777-1, 3084-1, 2731-8, 36861-8 #### [facility] ([id number]) [address], [address] [place] [address] Glucose [Mass/Vol] 132 mg/dL High 65-99 [facility] Comment on above: Performed By: #### C SHANTE, 41848-2, 39833-3, 7-1, 3084-1, 2731-8, 33275-7 #### [facility] ([id number]) [address], [address] [place] [address] Potassium [Moles/Vol] 4.9 mmol/L Normal 3.5-5.0 [facility] Comment on above: Performed By: #### C SAHNTE, 13560-5, 97008-4, 7-1, 3084-1, 2731-8, 32063-0 #### [facility] ([id number]) [address], [address] [place] [address] Protein [Mass/Vol] 6.9 g/dL Normal 6.0-8.0 [facility] Comment on above: Performed By: #### C SHANTE, 67184-8, 85022-9, 7-1, 3084-1, 2731-8, 05792-1 #### [facility] ([id number]) [address], [address] [place] [address] Sodium [Moles/Vol] 141 mmol/L Normal 134-146 [facility] Comment on above: Performed By: #### C SHANTE, 01519-4, 26834-8, 2777-1, 3084-1, 2731-8, 07023-6 #### [facility] ([id number]) [address], [address] [place] [address] Urea nitrogen [Mass/Vol] 21 mg/dL Normal 5-27 [facility] Comment on above: Performed By: #### C , 80187-7, 90668-7, 2777-1, 3084-1, 2731-8, 30106-5 #### [facility] ([id number]) [address], [address] [place] [address] Comprehensive metabolic pane heladio 01-11-2024 Albumin [Mass/Vol] 4.2 g/dL 3.2 - 5.3 g/dL [facility] ALP [Catalytic activity/Vol] 74 U/L 39 - 130 U/L [facility] ALT No additional P-5'-P [Catalytic activity/Vol] 16 U/L 0 - 31 U/L [facility] Anion gap [Moles/Vol] 11 mmol/L 5 - 15 mmol/L [facility] AST [Catalytic activity/Vol] 13 U/L 0 - 41 U/L [facility] Bilirubin [Mass/Vol] 0.9 mg/dL 0.3 - 1 .2 mg/dL [facility] Calcium [Mass/Vol] 9.7 mg/dL 8.5 - 10. 5 mg/dL [facility] Chloride [Moles/Vol] 106 mmol/L 98 - 10 9 mmol/L [facility] CO2 [Moles/Vol] 24 mmol/L 22 - 32 mmol/L [facility] Creatinine [Mass/Vol] 0.84 mg/dL 0.40 - 1.00 mg/dL [facility] Comment on above: METHOD TRACEABLE TO IDSC STANDARD eGFR (CKD-EPI)non-race dependent 73 - PINF [facility] Comment on above: Reported eGFR is based on the CKD-EPI 2020 equation that does not use a race coefficient. Glucose [Mass/Vol] 132 mg/dL High 65 - 99 mg/dL [facility] Potassium [Moles/Vol] 4.9 mmol/L 3.5 - 5.0 mmol/L [facility] Protein [Mass/Vol] 6.9 g/dL 6.0 - 8.0 g/dL [facility] Sodium [Moles/Vol] 141 mmol/L 134 - 146 mmol/L [facility] Urea nitrogen [Mass/Vol] 21 mg/dL 5 - 27 mg/dL [facility] HGB A1C (GLYCO-HGB)on 2023 Glucose [Mass/Vol] 171 mg/dL Normal [facility] Comment on above: Performed By: #### C SHANTE, 42366-3, 34927-3, 7-1, 3084-1, 2731-8, 87017-3 #### [facility] ([id number]) [address] [place] [address] HbA1c (Bld) [Mass fraction] 7.6 % High 4.4-5.6 [facility] Comment on above: Result Comment: NOTE ADA Guidelines Result HgbA1c Normal : less than 5.7 % Prediabetes : 5.7 % to 6.4 % Diabetes : > 6.4 % Use with caution in patients with abnormal hemoglobin variants as the half-life of red blood cells and in vivo glycation rates are affected. Performed By: #### C SHANTE, 61266-7, 80149-2, 7-1, 3084-1, 2731-8, 56559-8 #### [facility] ([id number]) [address] [place] [address] Hemoglobin A1con 01-11-2024 Average glucose Estimated from glycated hemoglobin (Bld) [Mass/Vol] 171 mg/dL [facility] HbA1c (Bld) [Mass fraction] 7.6 % High 4.4 - 5.6 % [facility] Comment on above: NOTE ADA Guidelines Result HgbA1c Normal : less than 5.7 % Prediabetes : 5.7 % to 6.4 % Diabetes : > 6.4 % Use with caution in patients with abnormal hemoglobin variants as the half-life of red blood cells and in vivo glycation rates are affected. Interpretation and review of laboratory results Abnormal [facility] Lipid 1996 panelon 4 Cholesterol [Mass/Vol] 104 mg/dL Low 150 - 200 mg/dL [facility] Cholesterol in HDL [Mass/Vol] 46 mg/dL 39 - PINF mg/dL [facility] Comment on above: HDL <40 mg/dL - High Risk HDL > or = 40mg/dL- Desirable HDL >60 mg/dL - Negative Risk Cholesterol in LDL [Mass/Vol] 19 mg/dL NINF - 130 mg/dL [facility] Comment on above: LDL <100 mg/dL - Desirable LDL >160 mg/dL - High Risk Cholesterol in VLDL [Mass/Vol] 39 mg/dL High 0 - 30 mg/dL [facility] Cholesterol.total/Chol esterol in HDL [Mass ratio] 2.3 {ratio} 1.0 - 5.0 [facility] Triglyceride [Mass/Vol] 194 mg/dL High 27 - 150 mg/dL [facility] Cholesterol [Mass/Vol] 104 mg/dL Low 150-200 [facility] Comment on above: Performed By: #### C MP, 96450-5, 31631-1, 2777-1, 3084-1, 2731-8, 27174-8 #### [facility] ([id number]) [address] [place] [address] Cholesterol in HDL [Mass/Vol] 46 mg/dL Normal >39 [facility] Comment on above: Result Comment: HDL <40 mg/dL - High Risk HDL > or = 40mg/dL- Desirable HDL >60 mg/dL - Negative Risk Performed By: ###[place], [address]-3, 07335-6, 2777-1, 3084-1, 2731-8, 41505-3 #### [facility] ([id number]) [address], [address] [place] [address] Cholesterol in LDL [Mass/Vol] 19 mg/dL Normal <130 [facility] Comment on above: Result Comment: LDL <100 mg/dL - Desirable LDL >160 mg/dL - High Risk Performed By: ###[place], [address]-2, 56807-8, 2777-1, 3084-1, 2731-8, 76638-0 #### [facility] ([id number]) [address], [address] [place] [address] Cholesterol in VLDL [Mass/Vol] 39 mg/dL High 0-30 [facility] Comment on above: Performed By: ###[place], [address]-4, 70783-6, 2777-1, 3084-1, 2731-8, 99575-3 #### [facility] ([id number]) [address], [address] [place] [address] CHOLESTEROL:HDL 2.3 Normal 1.0-5.0 [facility] Comment on above: Performed By: ###[place], [address]-3, 82915-1, 2777-1, 3084-1, 2731-8, 07568-8 #### [facility] ([id number]) [address], [address] [place] [address] Triglyceride [Mass/Vol] 194 mg/dL High 27-150 [facility] Comment on above: Performed By: #### C SHANTE, 50928-4, 66232-1, 2777-1, 3084-1, 2731-8, 55188-4 #### [facility] ([id number]) [address], [address] [place] [address] MAGNESIUMon 01-11-2024 Magnesium [Mass/Vol] 1.7 mg/dL Low 1.8-2.6 [facility] Comment on above: Performed By: #### C SHANTE, 63295-7, 89642-5, 7-1, 3084-1, 2731-8, 42529-4 #### [facility] ([id number]) [address], [address] [place] [address] Magnesiumon 01-11-2024 Magnesium [Mass/Vol] 1.7 mg/dL Low 1.8 - 2 .6 mg/dL [facility] No Panel Informationon 01-10 Interpretation and review of laboratory results Abnormal [facility] PHOSPHORUSon 01-11-2024 Phosphate [Mass/Vol] 3.7 mg/dL Normal 2.4-4.9 [facility] Comment on above: Performed By: #### C SHANTE, 68238-8, 90642-3, 7-1, 3084-1, 2731-8, 69422-8 #### [facility] ([id number]) [address], [address] [place] [address] Parathyrin.intact [Mass/Vol] on 01-11-2024 [facility] PTH INTACT 61 pg/mL Normal 12-88 [facility] Comment on above: Performed By: #### C SHANTE, 53350-5, 46863-2, 2777-1, 3084-1, 2731-8, 99118-3 #### [facility] ([id number]) [address], [address] [place] [address] Parathyroid Hormone, intacto n 01-11-2024 Parathyrin.intact [Mass/Vol] 61 pg/mL 12 - 88 pg/mL [facility] Phosphoruson 01-11-2024 Phosphate [Mass/Vol] 3.7 mg/dL 2.4 - 4 .9 mg/dL [facility] URIC ACIDon 01-11-2024 Urate [Mass/Vol] 6.6 mg/dL Normal 2.6-7.[address] [facility] Comment on above: Performed By: #### C , 70905-7, 56893-2, 2777-1, 3084-1, 2731-8, 96753-9 #### [facility] ([id number]) [address], [address] [place] [address] Uric acidon 01-11-2024 Urate [Mass/Vol] 6.6 mg/dL 2.6 - 7.2 mg/dL [facility] Vitamin D 25 hydroxyon 01-10 Vitamin D+Metabolites [Mass/Vol] 11.1 ng/mL Low 30 - 100 ng/mL [facility] Comment on above: Vitamin D status 25 [place] Vitamin D Deficiency <20 ng/mL Insufficiency 20-29 ng/mL Sufficiency 30-100 ng/mL Toxicity >100 ng/mL NOTE: A pediatric reference range has not been established by the paper and pulp mill operator of this kit. The [place] [employer] recommends a Vitamin D level of = or >20ng/mL in infants and children. Vitamin D+Metabolites [Mass/ Vol]on 01-11-2024 Interpretation and review of laboratory results Abnormal [facility] VITAMIN D 25 HYD TOT 11.1 ng/mL Low 30-100 [facility] Comment on above: Result Comment: Vitamin D status 25 [place] Vitamin D Deficiency <20 ng/mL Insufficiency 20-29 ng/mL Sufficiency 30-100 ng/mL Toxicity >100 ng/mL NOTE: A pediatric reference range has not been established by the paper and pulp mill operator of this kit. The [place] [employer] recommends a Vitamin D level of = or >20ng/mL in infants and children. Performed By: #### C MP, 64928-3, 88038-4, 2777-1, 3084-1, 2731-8, 64840-1 #### [facility] ([id number]) [address], [address] [place] [address] Office Visiton 12-30-2023 Follow-up visit [id number] Renee Mcneal 1950 F Date Provider Department Center 12/30/2023 [facility] Family History Problem Relation Age of Onset Coronary artery disease Father Heart attack Father Family Status - Relation Status Age at Father Level of Service:24240 DE OFFICE/OUTPATIENT ESTABLISHED LOW MDM [address] [facility] 36on 12-22-2023 35 EL[address] Campos, [place] Please let her know her Echo looks very good- better than the one in 2021. Normal EF- LV function, no diastolic dysfunction, no significant valve issues. Very good. Regarding echo performed on 12/20/2023 Patient informed. She verbalized understanding. Normal [facility] Alanine aminotransferase [En zymatic activity/volume] in Serum or PlasmaOrdered By: Farhana Sotomayor on 12-13-2023 ALT [Catalytic activity/Vol] 12 U/L 7-[address] [facility] Albumin [Mass/volume] in Ser um or Plasma by Bromocresol green (BCG) dye binding methoOrdered By: Farhana Sotomayor on 12-13-2023 Albumin BCG dye [Mass/Vol] 4.0 g/dL 3.5-5.[address] [facility] Alkaline phosphatase [Enzyma tic activity/volume] in Serum or PlasmaOrdered By: Farhana Sotomayor on 12-13-2023 ALP [Catalytic activity/Vol] 55 U/L 34-[address] [facility] Aspartate aminotransferase [ Enzymatic activity/volume] in Serum or PlasmaOrdered By: Farhana Sotomayor on 12-13-2023 AST [Catalytic activity/Vol] 11 U/L 13-[address] [facility] B-Type Natriuretic Peptideon 12-13-2023 Natriuretic peptide B (Bld) [Mass/Vol] 70.0 pg/mL Normal 5-[address] [facility] Comment on above: Order Comment: Kaylee ya order for this patient for CBC and CMP ordered under [facility]. please forward a copy of report to Irma Mesa N.P. patient fasting 12 hrs Result Comment: PERF ORMED BY: [place] [address] PATHOLOGIST RECREATION DIRECTOR SHEBA RICO M.D. Performed By: #### M G, BNP #### [address] Basophils Auto (Bld) [#/Vol] Ordered By: Farhana Sotomayor on 12-13-2023 Basophils (Bld) [#/Vol] 0.1 10*3/uL 0.0-0.[address] [facility] Basophils/100 WBC Auto (Bld) Ordered By: Farhana Sotomayor on 12-13-2023 Basophils/100 WBC (Bld) 1.2 % . [facility] Bilirubin.total [Mass/volume ] in Serum or PlasmaOrdered By: Farhana Sotomayor on 12-13-2023 Bilirubin [Mass/Vol] 0.8 mg/dL 0.3-1.0 [facility] CT abdomen pelvis w conon CT abdomen pelvis w con [place] [address] CT Scan Report Signed Patient: Tosha Mcneal MR#: [id number] : 1950 Acct:[id number] Age/Sex: 73 / F ADM Date: 12/13/23 Loc: Room: Type: [facility] Attending Dr: Rose Ohara MD Copies to: MD Farhana Gutierrez APRN Ordering Provider: Farhana Sotomayor APRN Date of Service: 12/13/23 CT/CT abdomen pelvis w con: surveillance melanoma ([id number]) CT/CT chest w con: surveillance melanoma CT [...] Omid Echevarria M.D.12/13/2023 2:39 PM Dictation Location: [place] [address] Transcribed By: SRUTHI 12/13/23 1439 Dictated By: Omid Echevarria DO 12/13/23 1430 Signed By: 12/13/[address] [facility] Calcium [Mass/volume] in Ser um or PlasmaOrdered By: Farhana Sotomayor on 12-13-2023 Calcium [Mass/Vol] 9.3 mg/dL 8.6-10.3 [facility] Carbon dioxide, total [Moles /volume] in Serum or PlasmaOrdered By: Farhana Sotomayor on 12-13-2023 CO2 [Moles/Vol] 26.9 mmol/L 21.0-31.0 [facility] Chloride [Moles/volume] in S marlena or PlasmaOrdered By: Farhana Sotomayor on 12-13-2023 Chloride [Moles/Vol] 103 mmol/L 98-107 [facility] Complete Blood Count Auto Di ffon 12-13-2023 Basophils (Bld) [#/Vol] 0.1 10*3/uL Normal 0.0-0.[address] [facility] Comment on above: Result Comment: PERF ORMED BY: [place] [address] PATHOLOGIST RECREATION DIRECTOR SHEBA RICO M.D. Performed By: #### C BC #### [address] Basophils/100 WBC (Bld) 1.2 % Normal . [facility] Comment on above: Performed By: #### C BC #### [facility] [address] [place] [address] [place] Eosinophils (Bld) [#/Vol] 0.2 10*3/uL Normal 0.0-0.[address] [facility] Comment on above: Performed By: #### C BC #### [address] Eosinophils/100 WBC (Bld) 2.4 % Normal . [facility] Comment on above: Performed By: #### C BC #### [address] Erythrocyte distribution width (RBC) [Ratio] 16.0 % High 11.9-15.[address] [facility] Comment on above: Performed By: #### C BC #### [address] Hematocrit (Bld) [Volume fraction] 35.5 % Normal 34.0-46.[address] [facility] Comment on above: Performed By: #### C BC #### [address] Hemoglobin (Bld) [Mass/Vol] 11.5 g/dL Low 11.8-15.[address] [facility] Comment on above: Performed By: #### C BC #### [address] Lymphocytes (Bld) [#/Vol] 1.9 10*3/uL Normal 1.00-4.[address] [facility] Comment on above: Performed By: #### C BC #### [address] Lymphocytes/100 WBC (Bld) 25.0 % Normal . [facility] Comment on above: Performed By: #### C BC #### [address] MCH (RBC) [Entitic mass] 28.3 pg Normal 24.7-34.[address] [facility] Comment on above: Performed By: #### C BC #### [address] MCV (RBC) [Entitic vol] 87.2 fL Normal 80-[address] [facility] Comment on above: Performed By: #### C BC #### [address] Mean Corpuscular HGB Conc 32.5 g/dL Normal 32.0-35.[address] [facility] Comment on above: Performed By: #### C BC #### [address] Monocytes (Bld) [#/Vol] 0.6 10*3/uL Normal 0.0-0.[address] [facility] Comment on above: Performed By: #### C BC #### [facility] [address] [place] [id number] [place] Monocytes/100 WBC (Bld) 8.3 % Normal . [facility] Comment on above: Performed By: #### C BC #### [facility] [address] [place] [id number] [place] Neutrophils (Bld) [#/Vol] 4.8 10*3/uL Normal 1.8-7.[address] [facility] Comment on above: Performed By: #### C BC #### [facility] [address] Neutrophils/100 WBC (Bld) 63.1 % Normal . [facility] Comment on above: Performed By: #### C BC #### [facility] [address] NRBC% 0.0 /100{WBC} Normal 0-0.[address] [facility] Comment on above: Performed By: #### C BC #### [facility] [address] [place] [id number] [facility] Platelet mean volume (Bld) [Entitic vol] 7.5 fL Normal 6.3-10.[address] [facility] Comment on above: Performed By: #### C BC #### [facility] [address] [place] [id number] [place] Platelets (Bld) [#/Vol] 220 10*3/uL Normal 150-[address] [facility] Comment on above: Performed By: #### C BC #### [facility] [address] [place] [address] [place] RBC (Bld) [#/Vol] 4.07 10*6/uL Normal 3.60-5.00 [facility] Comment on above: Performed By: #### C BC #### [facility] [address] [place] [address] [place] WBC (Bld) [#/Vol] 7.6 10*3/uL Normal 3.8-11.6 [facility] Comment on above: Performed By: #### C BC #### [facility] [address] [place] [address] [facility] Comprehensive Metabolic Pane heladio 12-13-2023 Albumin [Mass/Vol] 4.0 g/dL Normal 3.5-5.7 [facility] Comment on above: Order Comment: stat for CT Bun/creat patient has a duplicate for CMP and cbc for Irma Bonita please send copy of report to her also. orders scanned in under Acct. [id number] Patient fasting since 0830 pm 0n 12/12/23 Performed By: #### C MP, LDH #### [facility] [address] [place] [address] [facility] Albumin/Globulin [Mass ratio] 1.5 {ratio} Normal [facility] Comment on above: Order Comment: stat for CT Bun/creat patient has a duplicate for CMP and cbc for Irma Bonita please send copy of report to her also. orders scanned in under Acct. [id number] Patient fasting since 0830 pm 0n 12/12/23 Performed By: #### C MP, LDH #### [facility] [address] [place] [address] [facility] ALP [Catalytic activity/Vol] 55 U/L Normal 34-[address] [facility] Comment on above: Order Comment: stat for CT Bun/creat patient has a duplicate for CMP and cbc for Irma Bonita please send copy of report to her also. orders scanned in under Acct. [id number] Patient fasting since 0830 pm 0n 12/12/23 Performed By: #### C MP, LDH #### [facility] [address] [place] [address] [facility] ALT [Catalytic activity/Vol] 12 U/L Normal 7-[address] [facility] Comment on above: Order Comment: stat for CT Bun/creat patient has a duplicate for CMP and cbc for Irma Bonita please send copy of report to her also. orders scanned in under Acct. [id number] Patient fasting since 0830 pm 0n 12/12/23 Performed By: #### C MP, LDH #### [facility] [address] [place] [address] [place] Anion gap [Moles/Vol] 14.4 mmol/L Normal 6.0-15.0 [facility] Comment on above: Order Comment: stat for CT Bun/creat patient has a duplicate for CMP and cbc for Irma Blackburns please send copy of report to her also. orders scanned in under Acct. [id number] Patient fasting since 0830 pm 0n 12/12/23 Performed By: #### C MP, LDH #### [facility] [address] [place] [id number] [facility] AST [Catalytic activity/Vol] 11 U/L Low 13-[address] [facility] Comment on above: Order Comment: stat for CT Bun/creat patient has a duplicate for CMP and cbc for Irma Blackburns please send copy of report to her also. orders scanned in under Acct. [id number] Patient fasting since 0830 pm 0n 12/12/23 Performed By: #### C MP, LDH #### [facility] [address] [place] [address] [facility] Bilirubin [Mass/Vol] 0.8 mg/dL Normal 0.3-1.0 [facility] Comment on above: Order Comment: stat for CT Bun/creat patient has a duplicate for CMP and cbc for Irma Blackburns please send copy of report to her also. orders scanned in under Acct. [id number] Patient fasting since 0830 pm 0n 12/12/23 Performed By: #### C MP, LDH #### [facility] [address] [place] [address] [facility] Calcium [Mass/Vol] 9.3 mg/dL Normal 8.6-10.3 [facility] Comment on above: Order Comment: stat for CT Bun/creat patient has a duplicate for CMP and cbc for Irma Blackburns please send copy of report to her also. orders scanned in under Acct. [id number] Patient fasting since 0830 pm 0n 24 Performed By: #### C MP, LDH #### [facility] [address] [place] [address] [facility] Chloride [Moles/Vol] 103 mmol/L Normal 98-107 [facility] Comment on above: Order Comment: stat for CT Bun/creat patient has a duplicate for CMP and cbc for Irma Bonita please send copy of report to her also. orders scanned in under Acct. [id number] Patient fasting since 0830 pm 0n 12/12/23 Performed By: #### C MP, LDH #### [facility] [address] [place] [address] [place] CO2 [Moles/Vol] 26.9 mmol/L Normal 21.0-31.0 [facility] Comment on above: Order Comment: stat for CT Bun/creat patient has a duplicate for CMP and cbc for Irma Bonita please send copy of report to her also. orders scanned in under Acct. [id number] Patient fasting since 0830 pm 0n 12/12/23 Performed By: #### C MP, LDH #### [facility] [address] [place] [address] [place] Creatinine [Mass/Vol] 1.05 mg/dL Normal 0.60-1.20 [facility] Comment on above: Order Comment: stat for CT Bun/creat patient has a duplicate for CMP and cbc for Irma Bonita please send copy of report to her also. orders scanned in under Acct. [id number] Patient fasting since 0830 pm 0n 12/12/23 Performed By: #### C MP, LDH #### [facility] [address] [place] [id number] [place] Creatinine Clr Calc Pharmacy 51.93 [facility] Comment on above: Order Comment: stat for CT Bun/creat patient has a duplicate for CMP and cbc for Irma Bonita please send copy of report to her also. orders scanned in under Acct. [id number] Patient fasting since 0830 pm 0n 12/12/23 Performed By: #### C MP, LDH #### [facility] [address] [place] [address] [place] GFR/1.73 sq M.predicted MDRD (S/P/Bld) [Vol rate/Area] 55.755 mL/min/{1.73_m2} [facility] Comment on above: Order Comment: stat for CT Bun/creat patient has a duplicate for CMP and cbc for Irma Bonita please send copy of report to her also. orders scanned in under Acct. [id number] Patient fasting since 0830 pm 0n 12/12/23 Performed By: #### C MP, LDH #### [facility] [address] [place] [address] [facility] Globulin (S) [Mass/Vol] 2.7 g/dL Normal [facility] Comment on above: Order Comment: stat for CT Bun/creat patient has a duplicate for CMP and cbc for Irma Mesa please send copy of report to her also. orders scanned in under Acct. [id number] Patient fasting since 0830 pm 0n 12/12/23 Performed By: #### C MP, LDH #### [facility] [address] [place] [id number] [facility] Glucose [Mass/Vol] 135 mg/dL High 70-100 [facility] Comment on above: Order Comment: stat for CT Bun/creat patient has a duplicate for CMP and cbc for Irma Mesa please send copy of report to her also. orders scanned in under Acct. [id number] Patient fasting since 0830 pm 0n 12/12/23 Result Comment: [place] Glucose Reference Range is dependent on time and content of last meal. Glucose of more than 200 mg/dL in a nonstressed, ambulatory subject supports the diagnosis of Diabetes Mellitus. ADA recommended reference range Performed By: #### C MP, LDH #### [facility] [address] [place] [id number] [facility] Potassium [Moles/Vol] 5.3 mmol/L High 3.5-5.1 [facility] Comment on above: Order Comment: stat for CT Bun/creat patient has a duplicate for CMP and cbc for Irma Mesa please send copy of report to her also. orders scanned in under Acct. [id number] Patient fasting since 0830 pm 0n 12/12/23 Performed By: #### C MP, LDH #### [facility] [address] [place] [address] [facility] Protein [Mass/Vol] 6.7 g/dL Normal 6.4-8.9 [facility] Comment on above: Order Comment: stat for CT Bun/creat patient has a duplicate for CMP and cbc for Irma Mesa please send copy of report to her also. orders scanned in under Acct. [id number] Patient fasting since 0830 pm 0n 12/12/23 Performed By: #### C MP, LDH #### [facility] [address] [place] [id number] [facility] Sodium [Moles/Vol] 139 mmol/L Normal 136-145 [facility] Comment on above: Order Comment: stat for CT Bun/creat patient has a duplicate for CMP and cbc for Irma Mesa please send copy of report to her also. orders scanned in under Acct. [id number] Patient fasting since 0830 pm 0n 12/12/23 Performed By: #### C MP, LDH #### [facility] [address] [place] [id number] [facility] Urea nitrogen [Mass/Vol] 27 mg/dL High 7-[address] [facility] Comment on above: Order Comment: stat for CT Bun/creat patient has a duplicate for CMP and cbc for Irma Mesa please send copy of report to her also. orders scanned in under Acct. [id number] Patient fasting since 0830 pm 0n 12/12/23 Performed By: #### C MP, LDH #### [facility] [address] [place] [id number] [facility] Creatinine [Mass/volume] in Serum or PlasmaOrdered By: Farhana Sotomayor on 12-13-2023 Creatinine [Mass/Vol] 1.05 mg/dL 0.60-1.20 [facility] Eosinophils Auto (Bld) [#/Vo l]Ordered By: Farhana Sotomayor on 12-13-2023 Eosinophils (Bld) [#/Vol] 0.2 10*3/uL 0.0-0.[address] [facility] Eosinophils/100 WBC Auto (Bl d)Ordered By: Farhana Sotomayor on 12-13-2023 Eosinophils/100 WBC (Bld) 2.4 % . [facility] Erythrocyte distribution wid th Auto (RBC) [Ratio]Ordered By: Farhana Sotomayor on 12-13-2023 Erythrocyte distribution width (RBC) [Ratio] 16.0 % 11.9-15.[address] [facility] Globulin Calc (S) [Mass/Vol] Ordered By: Farhana Sotomayor on 12-13-2023 Globulin (S) [Mass/Vol] 2.7 g/dL [facility] Glucose [Mass/volume] in Ser um or PlasmaOrdered By: Farhana [facility] on 12-13-2023 Glucose [Mass/Vol] 135 mg/dL 70-100 [facility] Comment on above: ADA recommended refe rence rangeRandom Glucose Reference Range is dependent on time and content of last meal. Glucose of more than 200 mg/dL in a nonstressed, ambulatory subject supports the diagnosis of Diabetes Mellitus. Hematocrit Auto (Bld) [Volum e fraction]Ordered By: Farhana Sotomayor on 12-13-2023 Hematocrit (Bld) [Volume fraction] 35.5 % 34.0-46.[address] [facility] Hemoglobin [Mass/volume] in BloodOrdered By: Farhana [facility] on 12-13-2023 Hemoglobin (Bld) [Mass/Vol] 11.5 g/dL 11.8-15.[address] [facility] LDH Lactate Dehydrogenaseon 12-13-2023 LDH Lactate Dehydrogenase 118 U/L Low 140-[address] [facility] Comment on above: Order Comment: stat for CT Bun/creat patient has a duplicate for CMP and cbc for Irma Mesa please send copy of report to her also. orders scanned in under Acct. [id number] Patient fasting since 0830 pm 0n 12/12/23 Result Comment: PERF ORMED BY: [facility] [address] [place] [address] PATHOLOGIST RECREATION DIRECTOR SHEBA RICO M.D. Performed By: #### C MP, LDH ####[facility] [place] [address] [facility] Lactate dehydrogenase [Enzym atic activity/volume] in Serum or Plasma by Lactate to pyOrdered By: Farhana Sotomayor on 12-13-2023 LDH Lactate to pyruvate reaction [Catalytic activity/Vol] 118 U/L 140-[address] [facility] Leukocytes [#/volume] correc jin for nucleated erythrocytes in Blood by Automated counOrdered By: Farhana Sotomayor on 12-13-2023 WBC corrected for nucl RBC Auto (Bld) [#/Vol] 7.6 10*3/uL 3.8-11.[address] [facility] Lymphocytes Auto (Bld) [#/Vo l]Ordered By: Frahana Sotomayor on 12-13-2023 Lymphocytes (Bld) [#/Vol] 1.9 10*3/uL 1.00-4.[address] [facility] Lymphocytes/100 WBC Auto (Bl d)Ordered By: Farhana Sotomayor on 12-13-2023 Lymphocytes/100 WBC (Bld) 25.0 % . [facility] MCH Auto (RBC) [Entitic mass ]Ordered By: Farhana Sotomayor on 12-13-2023 MCH (RBC) [Entitic mass] 28.3 pg 24.7-34.[address] [facility] MCHC Auto (RBC) [Mass/Vol]Or dered By: Farhana Sotomayor on 12-13-2023 MCHC (RBC) [Mass/Vol] 32.5 g/dL 32.0-35.0 [facility] MCV Auto (RBC) [Entitic vol] Ordered By: Farhana Sotomayor on 12-13-2023 MCV (RBC) [Entitic vol] 87.2 fL 80-[address] [facility] Magnesiumon 12-13-2023 Magnesium [Mass/Vol] 1.5 mg/dL Low 1.9-2.7 [facility] Comment on above: Order Comment: Kaylee ya order for this patient for CBC and CMP ordered under [facility]. please forward a copy of report to Irma Mesa N.P. patient fasting 12 hrs Result Comment: PERF ORMED BY: [place] [address] PATHOLOGIST RECREATION DIRECTOR SHEBA RICO M.D. Performed By: #### M G, BNP #### [facility] [address] [place] [address] Magnesium [Mass/volume] in S marlena or PlasmaOrdered By: Irma Mesa on 12-13-2023 Magnesium [Mass/Vol] 1.5 mg/dL 1.9-2.7 [facility] Monocytes Auto (Bld) [#/Vol] Ordered By: Farhana Sotomayor on 12-13-2023 Monocytes (Bld) [#/Vol] 0.6 10*3/uL 0.0-0.[address] [facility] Monocytes/100 WBC Auto (Bld) Ordered By: Farhana Sotomayor on 12-13-2023 Monocytes/100 WBC (Bld) 8.3 % . [facility] Natriuretic peptide B [Mass/ Vol]Ordered By: Irma Mesa on 12-13-2023 Natriuretic peptide B (Bld) [Mass/Vol] 70.0 pg/mL 5-[address] [facility] Neutrophils Auto (Bld) [#/Vo l]Ordered By: Farhana Sotomayor on 12-13-2023 Neutrophils (Bld) [#/Vol] 4.8 10*3/uL 1.8-7.[address] [facility] Neutrophils/100 WBC Auto (Bl d)Ordered By: Farhana Sotomayor on 12-13-2023 Neutrophils/100 WBC (Bld) 63.1 % . [facility] No Panel InformationOrdered By: Farhana Sotomayor on 12-13-2023 Estimated GFR (CKD-EPI) 55.755 mL/Min [facility] Creatinine Clearance (Chem 51.[address] [facility] Nucleated erythrocytes [Pres ence] in Blood by Automated countOrdered By: Farhana Sotomayor on 12-13-2023 Nucleated RBC Auto Ql (Bld) 0.0 /100{WBC} 0-0.[address] [facility] Platelet mean volume Auto (B ld) [Entitic vol]Ordered By: Farhana Sotomayor on 12-13-2023 Platelet mean volume (Bld) [Entitic vol] 7.5 fL 6.3-10.[address] [facility] Platelets Auto (Bld) [#/Vol] Ordered By: Farhana Sotomayor on 12-13-2023 Platelets (Bld) [#/Vol] 220 10*3/uL 150-[address] [facility] Potassium [Moles/volume] in Serum or PlasmaOrdered By: Farhana Sotomayor on 12-13-2023 Potassium [Moles/Vol] 5.3 mmol/L 3.5-5.1 [facility] Protein [Mass/volume] in Ser um or PlasmaOrdered By: Farhana Sotomayor on 12-13-2023 Protein [Mass/Vol] 6.7 g/dL 6.4-8.9 [facility] RBC Auto (Bld) [#/Vol]Ordere d By: Farhana Sotomayor on 12-13-2023 RBC (Bld) [#/Vol] 4.07 10*6/uL 3.60-5.00 [facility] Serum or plasma albumin/glob ulin mass ratioOrdered By: Farhana Sotomayor on 12-13-2023 Albumin/Globulin [Mass ratio] 1.5 {ratio} [facility] Serum or plasma anion gap de terminationOrdered By: Farhana Sotomayor on 12-13-2023 Anion gap [Moles/Vol] 14.4 mmol/L 6.0-15.0 [facility] Sodium [Moles/volume] in Ser um or PlasmaOrdered By: Farhana Sotomayor on 12-13-2023 Sodium [Moles/Vol] 139 mmol/L 136-145 [facility] US extremity nonvascularon 0 12-13-2023 US extremity nonvascular [place] [address] Ultrasound Report Signed Patient: Tosha Mcneal MR#: [id number] : 1950 Acct:[id number] Age/Sex: 73 / F ADM Date: 12/13/23 Loc: XT Room: Type: [facility] Attending Dr: Rose Ohara MD Ordering [...] Francesco Boggs M.D.12/13/2023 2:06 PM Dictation Location: [place] [address] Tech: Miri Pastrana Transcribed By: SRUTHI 12/13/23 1406 Dictated By: Francesco Boggs II, MD 12/13/23 1402 Signed By: 12/13/[address] [facility] Urea nitrogen [Mass/volume] in Serum or PlasmaOrdered By: Farhana Sotomayor on 12-13-2023 Urea nitrogen [Mass/Vol] 27 mg/dL 7-[address] [facility] WBC Auto (Bld) [#/Vol]Ordere d By: Farhana Sotomayor on 12-13-2023 WBC (Bld) [#/Vol] 7.6 10*3/uL 3.8-11.6 [facility] 37on 12-02-2023 37 Stop Amlodipine/Norv asc- [...] pillows than normal or in recliner. Normal [facility] Office Visiton 12-02-2023 Follow-up visit [id number] Renee Mcneal 1950 F Date Provider Department Center 12/02/2023 [facility] Family History Problem Relation Age of Onset Coronary artery disease Father Heart attack Father Family Status - Relation Status Age at Father Level of Service:74788 DE OFFICE/OUTPATIENT ESTABLISHED MOD MDM [address] [facility] Operative Reporton Operative Report Indication for Surge ry Wound dehiscence left total knee Preoperative Diagnosis Wound dehiscence left total knee Postoperative Diagnosis Wound dehiscence left total knee Operation Debridement Lower Extremity, INCISION AND DRAINAGE LEFT KNEE, SECONDARY CLOSURE OF WOUND DEHISENCE, PREVENNA PLACMENT, Left, Knee Surgeon(s) Ronaldo JUAREZ, Aly Guzman (Surgeon - Primary) Adoption Agent Dee Dee Browne (Senior It Business Analyst) Anesthesia General Mile JUAREZ, Hank Richard (Director Automotive) Joleen Lala (Provider) Estimated Blood Loss 10 [...] stable condition. Will be discharged home with [place] and Keflex 500 mg p.o. 3 times daily x 7 days. Return the office in 1 week for wound check. Tourniquet Time NA Sponge/Needle Count correct Fluid Count as per chart Catheters, Drains, Tubes Prevena Electronically signed by Aly Higgins MD 11/09/23 17:29 EST Normal [facility] POC Glucose Randomon 024 Glucose [Mass/Vol] 118 mg/dL High 70-99 [facility] Comment on above: Performed By: #### C [id number] #### [address] [address] Glucose [Mass/Vol] 137 mg/dL High 70-99 [facility] Comment on above: Performed By: #### C [id number] #### [place] [address] [place] [address] Glucose [Mass/Vol] 138 mg/dL High 70-99 [facility] Comment on above: Performed By: #### C [id number] #### [address] [address] Hgb/Hcton 10-04-2023 Hematocrit (Bld) [Volume fraction] 35.2 % Low 36.3-47.1 [facility] Comment on above: Performed By: #### H H #### [facility] [address] [place] [address] Pre Billing Clinician: Alexey Rob MD Hemoglobin (Bld) [Mass/Vol] 11.5 g/dL Low 11.9-15.1 [facility] Comment on above: Performed By: #### H H #### [facility] [address] [place] [address] Pre Billing Clinician: Alexey Rob MD OPERATIVE REPORTon 3 OPERATIVE REPORT [address] [address] OPERATIVE REPORT PATIENT NAME: TOSHA MCNEAL : 1950 [facility] REC NO: [id number] ROOM: 0331 ACCOUNT NO: [id number] ADMIT DATE: 10/03/2023 PROVIDER: Aly Higgins DATE [...] to go with a 32-mm patellar dome. Clyde holes were placed. Knee was then cleansed [...] layer was then closed with #1 Vicryl [id number] sutures over two Hemovac drains. Vancomycin powder [...] a stable condition. ALY HIGGINS PH/[id number]_T Doc#: [id number] CC: Normal [facility] MRSA, DNA, Nasalon 3 MRSA, DNA, Nasal Negative Normal NEG [facility] Comment on above: Result Comment: NEGA TIVE: MRSA DNA not detected by nucleic acid amplification. Results should be used as an adjunct to nosocomial control efforts to identify patients needing enhanced precautions. The test is not intended to identify patients with staphylococcal infections. Results should not be used to guide or monitor treatment for MRSA infections. Performed By: #### M RSANO #### [facility] [address] [place] [address] Pre Billing Clinician: Jose Miguel Davis MD [facility] [address] [place] [address] Pre Billing Clinician: Alexey Rob MD Basic Metabolic Profon 09-08 Anion gap [Moles/Vol] 12 mmol/L Normal 9-17 [facility] Comment on above: Performed By: #### B MP, CDP #### [facility] [address] [place], [place] [id number] Pre Billing Clinician: Alexey Rob MD BUN/CRE Ratio 35 High 9-20 [facility] Comment on above: Performed By: #### B MP, CDP #### [facility] [address] [place], [place] [id number] Pre Billing Clinician: Alexey Rob MD Calcium [Mass/Vol] 9.9 mg/dL Normal 8.6-10.4 [facility] Comment on above: Performed By: #### B MP, CDP #### [facility] [address] [place], [place] [id number] Pre Billing Clinician: Alexey Rob MD Chloride [Moles/Vol] 99 mmol/L Normal 98-107 [facility] Comment on above: Performed By: #### B SHANTE, CDP #### [facility] [address] [place], [place] 478[address]83 Pre Billing Clinician: Alexey Rob MD CO2 [Moles/Vol] 27 mmol/L Normal 20-31 [facility] Comment on above: Performed By: #### B MP, CDP #### [facility] [address] [place] [address] [address] [place], [place] [id number] Pre Billing Clinician: Alexey Rob MD Creatinine [Mass/Vol] 1.0 mg/dL High 0.5-0.9 [facility] Comment on above: Performed By: #### B MP, CDP #### [facility] [address] [place], [place] [id number] Pre Billing Clinician: Alexey Rob MD GFR/1.73 sq M.predicted among non-blacks MDRD (S/P/Bld) [Vol rate/Area] 59 mL/min/{1.73_m2} Low >60 [facility] Comment on above: Result Comment: These [...] Performed By: #### B SHANTE, CDP #### [facility] [address] [place] [address] [place] [address] Pre Billing Clinician: Alexye Rob MD Glucose [Mass/Vol] 126 mg/dL High 70-99 [facility] Comment on above: Performed By: #### B SHANTE, CDP #### [address] [place] [address] Pre Billing Clinician: Alexey Rob MD Potassium [Moles/Vol] 4.9 mmol/L Normal 3.7-5.3 [facility] Comment on above: Performed By: #### B SHANTE, CDP #### [address] [place] [address] Pre Billing Clinician: Alexey Rob MD Sodium [Moles/Vol] 138 mmol/L Normal 135-144 [facility] Comment on above: Performed By: #### B SHANTE, CDP #### [address] [place] [address] Pre Billing Clinician: Alexey Rob MD Urea nitrogen [Mass/Vol] 35 mg/dL High 8-23 [facility] Comment on above: Performed By: #### B SHANTE, CDP #### [facility] [address] [place] [address] [place] [address] Pre Billing Clinician: Alexey Rob MD CBC with Diffon 09-08-2023 Abs. Basophil 0.07 k/uL Normal 0.00-0.20 [facility] Comment on above: Performed By: #### B SHANTE, CDP #### [facility] [address] [place] [address] [address] [place], [place] [phone] Pre Billing Clinician: Alexey Rob MD Abs.Imm.Granulocyte 0.04 k/uL Normal 0.00-0.30 [facility] Comment on above: Performed By: #### B SHANTE, CDP #### [address] [place], [place] 9[address]4483 Pre Billing Clinician: Alexey Rob MD Abs.Neutrophil (Seg) 5.10 k/uL Normal 1.50-8.10 [facility] Comment on above: Performed By: #### B SHANTE, CDP #### [address] [place], [facility]83 Pre Billing Clinician: Alexey Rob MD Basophils/100 WBC (Bld) 1 % Normal 0-2 [facility] Comment on above: Performed By: #### B SHANTE, CDP #### [address] [place] [id number] Pre Billing Clinician: Alexey Rob MD Eosinophils (Bld) [#/Vol] 0.13 10*3/uL Normal 0.00-0.44 [facility] Comment on above: Performed By: #### B SHANTE, CDP #### [address] [place], [facility]83 Pre Billing Clinician: Alexey Rob MD Eosinophils/100 WBC (Bld) 2 % Normal 1-4 [facility] Comment on above: Performed By: #### B SHANTE, CDP #### [address] [place], [facility]83 Pre Billing Clinician: Alexey Rob MD Erythrocyte distribution width (RBC) [Ratio] 13.6 % Normal 11.8-14.4 [facility] Comment on above: Performed By: #### B SHANTE, CDP #### [address] [place], [place] [id number] Pre Billing Clinician: Alexey Rob MD Hematocrit (Bld) [Volume fraction] 44.2 % Normal 36.3-47.1 [facility] Comment on above: Performed By: #### B SHANTE, CDP #### [facility] [address] [place], [place] [id number] Pre Billing Clinician: Alexey Rob MD Hemoglobin (Bld) [Mass/Vol] 14.1 g/dL Normal 11.9-15.1 [facility] Comment on above: Performed By: #### B MP, CDP #### [facility] [address] [place], [place] [id number] Pre Billing Clinician: Alexey Rob MD Immature granulocytes/100 WBC (Bld) 1 % High 0 [facility] Comment on above: Performed By: #### B SHANTE, CDP #### [address] [place], [place] [phone] Pre Billing Clinician: Alexey Rob MD Lymphocytes (Bld) [#/Vol] 1.87 10*3/uL Normal 1.10-3.70 [facility] Comment on above: Performed By: #### B SHANTE, CDP #### [address] [place], [place] [id number] Pre Billing Clinician: Alexey Rob MD Lymphocytes/100 WBC (Bld) 24 % Normal 24-43 [facility] Comment on above: Performed By: #### B MP, CDP #### [address] [place], [place] [id number] Pre Billing Clinician: Alexey Rob MD MCH (RBC) [Entitic mass] 29.5 pg Normal 25.2-33.5 [facility] Comment on above: Performed By: #### B MP, CDP #### [address] [place], [place] [address]1183 Pre Billing Clinician: Alexey Rob MD MCHC (RBC) [Mass/Vol] 31.9 g/dL Normal 28.4-34.8 [facility] Comment on above: Performed By: #### B SHANTE, CDP #### [facility] [address] [place] [address] [place] [address] Pre Billing Clinician: Alexey Rob MD MCV (RBC) [Entitic vol] 92.5 fL Normal 82.6-102.9 [facility] Comment on above: Performed By: #### B SHANTE, CDP #### [address] [place], [place] [id number] Pre Billing Clinician: Alexey Rob MD Monocytes (Bld) [#/Vol] 0.75 10*3/uL Normal 0.10-1.20 [facility] Comment on above: Performed By: #### B SHANTE, CDP #### [address] [place], [place] 8571583 Pre Billing Clinician: Alexey Rob MD Monocytes/100 WBC (Bld) 9 % Normal 3-12 [facility] Comment on above: Performed By: #### B SHANTE, CDP #### [address] [place], [place] [phone] Pre Billing Clinician: Alexey Rob MD Neutrophil (Seg) 63 % Normal 36-[address] [facility] Comment on above: Performed By: #### B SHANTE, CDP #### [address] [place], [place] 9974583 Pre Billing Clinician: Alexey Rob MD NRBC Automated 0.0 per 100 WBC Normal 0.0 [facility] Comment on above: Performed By: #### B SHANTE, CDP #### [address] [place], [place] [phone] Pre Billing Clinician: Alexey Rob MD Platelet mean volume (Bld) [Entitic vol] 9.6 fL Normal 8.1-13.5 [facility] Comment on above: Performed By: #### B MP, CDP #### [address] [place], [place] [phone] Pre Billing Clinician: Alexey Rob MD Platelets (Bld) [#/Vol] 205 10*3/uL Normal 138-453 [facility] Comment on above: Performed By: #### B MP, CDP #### [facility] [address] [place], [place] [phone] Pre Billing Clinician: Alexey Rob MD RBC (Bld) [#/Vol] 4.78 10*6/uL Normal 3.95-5.11 [facility] Comment on above: Performed By: #### B MP, CDP #### [facility] [address] [place], [place] 617[address]83 Pre Billing Clinician: Alexey Rob MD WBC (Bld) [#/Vol] 8.0 10*3/uL Normal 3.5-11.3 [facility] Comment on above: Performed By: #### B MP, CDP #### [address] [place], [place] [phone] Pre Billing Clinician: Alexey Rob MD MRSA, DNA, Nasalon 3 Specimen Description .NASAL SWAB Normal [facility] Comment on above: Performed By: #### M RSANO #### [facility] [address] [place], [place] 44[address] Pre Billing Clinician: Jose Miguel Davis MD [address] [place] [address] Pre Billing Clinician: Alexey Rob MD Type + Screenon 09-08-2023 Type + Screen Sample Expiration 10/06/2023,2359 Arm Band Number [id number] ABO/Rh(D) A POSITIVE Antibody Screen NEGATIVE Normal [facility] Comment on above: Performed By: #### T YS #### [facility] [address] [place] [address] [place] [address] Pre Billing Clinician: Alexey Rob MD Office Visiton 08-29-2023 Follow-up visit [id number] Renee Mcneal 1950 F Date Provider Department Center 08/29/2023 [id number] Family History Problem Relation Age of Onset Coronary artery disease Father Heart attack Father Family Status - Relation Status Age at Father Level of Service:16299 DE OFFICE/OUTPATIENT ESTABLISHED MOD MDM 30-[address] [facility] Alanine aminotransferase [En zymatic activity/volume] in Serum or PlasmaOrdered By: Rose Ohara on 08-09-2023 ALT [Catalytic activity/Vol] 13 U/L 7-[address] [facility] Albumin [Mass/volume] in Ser um or Plasma by Bromocresol green (BCG) dye binding methoOrdered By: Rose Ohara on 08-09-2023 Albumin BCG dye [Mass/Vol] 4.5 g/dL 3.5-5.[address] [facility] Alkaline phosphatase [Enzyma tic activity/volume] in Serum or PlasmaOrdered By: Rose Ohara on 08-09-2023 ALP [Catalytic activity/Vol] 48 U/L 34-[address] [facility] Aspartate aminotransferase [ Enzymatic activity/volume] in Serum or PlasmaOrdered By: Rose Ohara on 08-09-2023 AST [Catalytic activity/Vol] 11 U/L 13-[address] [facility] Basophils Auto (Bld) [#/Vol] Ordered By: Rose Ohara on 08-09-2023 Basophils (Bld) [#/Vol] 0.1 10*3/uL 0.0-0.[address] [facility] Basophils/100 WBC Auto (Bld) Ordered By: Rose Ohara on 08-09-2023 Basophils/100 WBC (Bld) 1.3 % . [facility] Bilirubin.total [Mass/volume ] in Serum or PlasmaOrdered By: Rose Ohara on 08-09-2023 Bilirubin [Mass/Vol] 1.1 mg/dL 0.3-1.0 [facility] Calcium [Mass/volume] in Ser um or PlasmaOrdered By: Rose Ohara on 08-09-2023 Calcium [Mass/Vol] 9.8 mg/dL 8.6-10.3 [facility] Carbon dioxide, total [Moles /volume] in Serum or PlasmaOrdered By: Rose Ohara on 08-09-2023 CO2 [Moles/Vol] 27.9 mmol/L 21.0-31.0 [facility] Chloride [Moles/volume] in S marlena or PlasmaOrdered By: Rose Ohara on 08-09-2023 Chloride [Moles/Vol] 104 mmol/L 98-107 [facility] Complete Blood Count Auto Di ffon 08-09-2023 Basophils (Bld) [#/Vol] 0.1 10*3/uL Normal 0.0-0.[address] [facility] Comment on above: Result Comment: PERF ORMED BY: [facility] [address] [place] [address] PATHOLOGIST RECREATION DIRECTOR SHEBA RICO M.D. Performed By: #### C BC, CMP, LDH ####[place] [id number] Basophils/100 WBC (Bld) 1.3 % Normal . [facility] Comment on above: Performed By: #### C BC, CMP, LDH ####[address] Eosinophils (Bld) [#/Vol] 0.1 10*3/uL Normal 0.0-0.[address] [facility] Comment on above: Performed By: #### C BC, CMP, LDH ####[address] Eosinophils/100 WBC (Bld) 1.9 % Normal . [facility] Comment on above: Performed By: #### C BC, CMP, LDH ####[address] Erythrocyte distribution width (RBC) [Ratio] 14.5 % Normal 11.9-15.[address] [facility] Comment on above: Performed By: #### C BC, CMP, LDH ####[place] [id number] [facility] Hematocrit (Bld) [Volume fraction] 41.7 % Normal 34.0-46.[address] [facility] Comment on above: Performed By: #### C BC, CMP, LDH ####[place] [id number] [facility] Hemoglobin (Bld) [Mass/Vol] 13.6 g/dL Normal 11.8-15.[address] [facility] Comment on above: Performed By: #### C BC, CMP, LDH ####[address] Lymphocytes (Bld) [#/Vol] 1.6 10*3/uL Normal 1.00-4.[address] [facility] Comment on above: Performed By: #### C BC, CMP, LDH ####[address] Lymphocytes/100 WBC (Bld) 23.9 % Normal . [facility] Comment on above: Performed By: #### C BC, CMP, LDH ####[address] MCH (RBC) [Entitic mass] 29.6 pg Normal 24.7-34.[address] [facility] Comment on above: Performed By: #### C BC, CMP, LDH ####[address] MCV (RBC) [Entitic vol] 90.7 fL Normal 80-[address] [facility] Comment on above: Performed By: #### C BC, CMP, LDH ####[address] Mean Corpuscular HGB Conc 32.6 g/dL Normal 32.0-35.[address] [facility] Comment on above: Performed By: #### C BC, CMP, LDH ####[address] Monocytes (Bld) [#/Vol] 0.6 10*3/uL Normal 0.0-0.[address] [facility] Comment on above: Performed By: #### C BC, CMP, LDH ####[address] Monocytes/100 WBC (Bld) 9.2 % Normal . [facility] Comment on above: Performed By: #### C BC, CMP, LDH ####[address] Neutrophils (Bld) [#/Vol] 4.1 10*3/uL Normal 1.8-7.[address] [facility] Comment on above: Performed By: #### C BC, CMP, LDH ####[place] [id number] [facility] Neutrophils/100 WBC (Bld) 63.7 % Normal . [facility] Comment on above: Performed By: #### C BC, CMP, LDH ####[place] [id number] [facility] NRBC% 0.1 /100{WBC} Normal 0-0.[address] [facility] Comment on above: Performed By: #### C BC, CMP, LDH ####[address] Platelet mean volume (Bld) [Entitic vol] 7.8 fL Normal 6.3-10.[address] [facility] Comment on above: Performed By: #### C BC, CMP, LDH ####[place] [id number] [facility] Platelets (Bld) [#/Vol] 200 10*3/uL Normal 150-[address] [facility] Comment on above: Performed By: #### C BC, CMP, LDH ####[address] RBC (Bld) [#/Vol] 4.59 10*6/uL Normal 3.60-5.00 [facility] Comment on above: Performed By: #### C BC, CMP, LDH ####[place] [id number] [facility] WBC (Bld) [#/Vol] 6.5 10*3/uL Normal 3.8-11.6 [facility] Comment on above: Performed By: #### C BC, CMP, LDH ####[place] [id number] [facility] Comprehensive Metabolic Pane heladio 08-09-2023 Albumin [Mass/Vol] 4.5 g/dL Normal 3.5-5.7 [facility] Comment on above: Order Comment: pt is a fasting Performed By: #### C BC, CMP, LDH ####[place] [address] [place] [address] [facility] Albumin/Globulin [Mass ratio] 1.8 {ratio} Normal [facility] Comment on above: Order Comment: pt is a fasting Performed By: #### C BC, CMP, LDH ####[address] [address] [facility] ALP [Catalytic activity/Vol] 48 U/L Normal 34-[address] [facility] Comment on above: Order Comment: pt is a fasting Performed By: #### C BC, CMP, LDH ####[address] [address] [facility] ALT [Catalytic activity/Vol] 13 U/L Normal 7-[address] [facility] Comment on above: Order Comment: pt is a fasting Performed By: #### C BC, CMP, LDH ####[address] [address] [facility] Anion gap [Moles/Vol] 13.2 mmol/L Normal 6.0-15.0 [facility] Comment on above: Order Comment: pt is a fasting Performed By: #### C BC, CMP, LDH ####[address] [address] [facility] AST [Catalytic activity/Vol] 11 U/L Low 13-[address] [facility] Comment on above: Order Comment: pt is a fasting Performed By: #### C BC, CMP, LDH ####[address] [address] [facility] Bilirubin [Mass/Vol] 1.1 mg/dL High 0.3-1.0 [facility] Comment on above: Order Comment: pt is a fasting Performed By: #### C BC, CMP, LDH ####[place] [id number] [facility] Calcium [Mass/Vol] 9.8 mg/dL Normal 8.6-10.3 [facility] Comment on above: Order Comment: pt is a fasting Performed By: #### C BC, CMP, LDH ####[place] [address] [place] [address] [facility] Chloride [Moles/Vol] 104 mmol/L Normal 98-107 [facility] Comment on above: Order Comment: pt is a fasting Performed By: #### C BC, CMP, LDH ####[place] [address] [place] [address] [facility] CO2 [Moles/Vol] 27.9 mmol/L Normal 21.0-31.0 [facility] Comment on above: Order Comment: pt is a fasting Performed By: #### C BC, CMP, LDH ####[address] [address] [facility] Creatinine [Mass/Vol] 0.86 mg/dL Normal 0.60-1.20 [facility] Comment on above: Order Comment: pt is a fasting Performed By: #### C BC, CMP, LDH ####[address] [address] [facility] Creatinine Clr Calc Pharmacy 64.19 [facility] Comment on above: Order Comment: pt is a fasting Performed By: #### C BC, CMP, LDH ####[address] [address] [facility] GFR/1.73 sq M.predicted MDRD (S/P/Bld) [Vol rate/Area] mL/min/{1.73_m2} [facility] Comment on above: Order Comment: pt is a fasting Performed By: #### C BC, CMP, LDH ####[address] [address] [facility] Globulin (S) [Mass/Vol] 2.5 g/dL [facility] Comment on above: Order Comment: pt is a fasting Performed By: #### C BC, CMP, LDH ####[address] [place] [address] [facility] Glucose [Mass/Vol] 168 mg/dL High 70-100 [facility] Comment on above: Order Comment: pt is a fasting Result Comment: [place] Glucose Reference Range is dependent on time and content of last meal. Glucose of more than 200 mg/dL in a nonstressed, ambulatory subject supports the diagnosis of Diabetes Mellitus. ADA recommended reference range Performed By: #### C BC, CMP, LDH ####[facility] [place] [address] [facility] Potassium [Moles/Vol] 5.1 mmol/L Normal 3.5-5.1 [facility] Comment on above: Order Comment: pt is a fasting Performed By: #### C BC, CMP, LDH ####[address] [place] [address] [facility] Protein [Mass/Vol] 7.0 g/dL Normal 6.4-8.9 [facility] Comment on above: Order Comment: pt is a fasting Performed By: #### C BC, CMP, LDH ####[address] [place] [address] [facility] Sodium [Moles/Vol] 140 mmol/L Normal 136-145 [facility] Comment on above: Order Comment: pt is a fasting Performed By: #### C BC, CMP, LDH ####[address] [address] [facility] Urea nitrogen [Mass/Vol] 26 mg/dL High 7-[address] [facility] Comment on above: Order Comment: pt is a fasting Performed By: #### C BC, CMP, LDH ####[id number] [facility] Creatinine [Mass/volume] in Serum or PlasmaOrdered By: Rose Ohara on 08-09-2023 Creatinine [Mass/Vol] 0.86 mg/dL 0.60-1.20 [facility] Eosinophils Auto (Bld) [#/Vo l]Ordered By: Rose Ohara on 08-09-2023 Eosinophils (Bld) [#/Vol] 0.1 10*3/uL 0.0-0.[address] [facility] Eosinophils/100 WBC Auto (Bl d)Ordered By: Rose Ohara on 08-09-2023 Eosinophils/100 WBC (Bld) 1.9 % . [facility] Erythrocyte distribution wid th Auto (RBC) [Ratio]Ordered By: Rose Ohara on 08-09-2023 Erythrocyte distribution width (RBC) [Ratio] 14.5 % 11.9-15.[address] [facility] Globulin Calc (S) [Mass/Vol] Ordered By: Rose Ohara on 08-09-2023 Globulin (S) [Mass/Vol] 2.5 g/dL [facility] Glucose [Mass/volume] in Ser um or PlasmaOrdered By: Rose Oahra on 08-09-2023 Glucose [Mass/Vol] 168 mg/dL 70-100 [facility] Comment on above: ADA recommended refe rence rangeRandom Glucose Reference Range is dependent on time and content of last meal. Glucose of more than 200 mg/dL in a nonstressed, ambulatory subject supports the diagnosis of Diabetes Mellitus. Hematocrit Auto (Bld) [Volum e fraction]Ordered By: Rose Ohara on 08-09-2023 Hematocrit (Bld) [Volume fraction] 41.7 % 34.0-46.[address] [facility] Hemoglobin [Mass/volume] in BloodOrdered By: Rose Ohara on 08-09-2023 Hemoglobin (Bld) [Mass/Vol] 13.6 g/dL 11.8-15.[address] [facility] LDH Lactate Dehydrogenaseon 08-09-2023 LDH Lactate Dehydrogenase 135 U/L Low 140-[address] [facility] Comment on above: Order Comment: pt is a fasting Result Comment: PERF ORMED BY: [facility] [address] [id number] PATHOLOGIST RECREATION DIRECTOR SHEBA RICO M.D. Performed By: #### C BC, CMP, LDH ####[facility] [address] [place] [address] [facility] Lactate dehydrogenase [Enzym atic activity/volume] in Serum or Plasma by Lactate to pyOrdered By: Rose Ohara on 08-09-2023 LDH Lactate to pyruvate reaction [Catalytic activity/Vol] 135 U/L 140-[address] [facility] Leukocytes [#/volume] correc jin for nucleated erythrocytes in Blood by Automated counOrdered By: Rose Ohara on 08-09-2023 WBC corrected for nucl RBC Auto (Bld) [#/Vol] 6.5 10*3/uL 3.8-11.[address] [facility] Lymphocytes Auto (Bld) [#/Vo l]Ordered By: Rose Ohara on 08-09-2023 Lymphocytes (Bld) [#/Vol] 1.6 10*3/uL 1.00-4.[address] [facility] Lymphocytes/100 WBC Auto (Bl d)Ordered By: Rose Ohara on 08-09-2023 Lymphocytes/100 WBC (Bld) 23.9 % . [facility] MCH Auto (RBC) [Entitic mass ]Ordered By: Rose Ohara on 08-09-2023 MCH (RBC) [Entitic mass] 29.6 pg 24.7-34.[address] [facility] MCHC Auto (RBC) [Mass/Vol]Or dered By: Rose Ohara on 08-09-2023 MCHC (RBC) [Mass/Vol] 32.6 g/dL 32.0-35.0 [facility] MCV Auto (RBC) [Entitic vol] Ordered By: Rose Ohara on 08-09-2023 MCV (RBC) [Entitic vol] 90.7 fL 80-[address] [facility] Monocytes Auto (Bld) [#/Vol] Ordered By: Rose Ohara on 08-09-2023 Monocytes (Bld) [#/Vol] 0.6 10*3/uL 0.0-0.[address] [facility] Monocytes/100 WBC Auto (Bld) Ordered By: Rose Ohara on 08-09-2023 Monocytes/100 WBC (Bld) 9.2 % . [facility] Neutrophils Auto (Bld) [#/Vo l]Ordered By: Rose Ohara on 08-09-2023 Neutrophils (Bld) [#/Vol] 4.1 10*3/uL 1.8-7.[address] [facility] Neutrophils/100 WBC Auto (Bl d)Ordered By: Rose Ohara on 08-09-2023 Neutrophils/100 WBC (Bld) 63.7 % . [facility] No Panel InformationOrdered By: Rose Ohara on 08-09-2023 Estimated GFR (CKD-EPI) > 60.0 mL/Min [facility] Creatinine Clearance (Chem 64.[address] [facility] Nucleated erythrocytes [Pres ence] in Blood by Automated countOrdered By: Rose Ohara on 08-09-2023 Nucleated RBC Auto Ql (Bld) 0.1 /100{WBC} 0-0.[address] [facility] Platelet mean volume Auto (B ld) [Entitic vol]Ordered By: Rose Ohara on 08-09-2023 Platelet mean volume (Bld) [Entitic vol] 7.8 fL 6.3-10.[address] [facility] Platelets Auto (Bld) [#/Vol] Ordered By: Rose Ohara on 08-09-2023 Platelets (Bld) [#/Vol] 200 10*3/uL 150-[address] [facility] Potassium [Moles/volume] in Serum or PlasmaOrdered By: Rose Ohara on 08-09-2023 Potassium [Moles/Vol] 5.1 mmol/L 3.5-5.1 [facility] Protein [Mass/volume] in Ser um or PlasmaOrdered By: Rose Ohara on 08-09-2023 Protein [Mass/Vol] 7.0 g/dL 6.4-8.9 [facility] RBC Auto (Bld) [#/Vol]Ordere d By: Rose Ohara on 08-09-2023 RBC (Bld) [#/Vol] 4.59 10*6/uL 3.60-5.00 [facility] Serum or plasma albumin/glob ulin mass ratioOrdered By: Rose Ohara on 08-09-2023 Albumin/Globulin [Mass ratio] 1.8 {ratio} [facility] Serum or plasma anion gap de terminationOrdered By: Rose Ohara on 08-09-2023 Anion gap [Moles/Vol] 13.2 mmol/L 6.0-15.0 [facility] Sodium [Moles/volume] in Ser um or PlasmaOrdered By: Rose Ohara on 08-09-2023 Sodium [Moles/Vol] 140 mmol/L 136-145 [facility] US extremity nonvascularon 1 US extremity nonvascular [place] [address] Ultrasound Report Signed Patient: Tosha Mcneal MR#: [id number] : 1950 Acct:[id number] Age/Sex: 72 / F ADM Date: 08/09/23 Loc: XT Room: Type: [facility] Attending Dr: Rose Ohara MD Ordering Provider: [...] Jenni Sands M.D.08/09/2023 1:36 PM Dictation Location: [place] [address] Tech: Miri Clint Transcribed By: SRUTHI 08/09/23 133 Dictated By: Jenni Sands MD 08/09/231332 Signed By: 08/09/231335 Normal [facility] Urea nitrogen [Mass/volume] in Serum or PlasmaOrdered By: Rose Ohara on 08-09-2023 Urea nitrogen [Mass/Vol] 26 mg/dL 05-[address] [facility] WBC Auto (Bld) [#/Vol]Ordere d By: Rose Ohara on 08-09-2023 WBC (Bld) [#/Vol] 6.5 10*3/uL 3.8-11.6 [facility] Alanine aminotransferase [En zymatic activity/volume] in Serum or PlasmaOrdered By: Rose Ohara on 04-12-2023 ALT [Catalytic activity/Vol] 17 U/L 7-[address] [facility] Albumin [Mass/volume] in Ser um or Plasma by Bromocresol green (BCG) dye binding methoOrdered By: Rose Ohara on 04-12-2023 Albumin BCG dye [Mass/Vol] 4.1 g/dL 3.5-5.[address] [facility] Alkaline phosphatase [Enzyma tic activity/volume] in Serum or PlasmaOrdered By: Rose Ohara on 04-12-2023 ALP [Catalytic activity/Vol] 57 U/L 34-[address] [facility] Aspartate aminotransferase [ Enzymatic activity/volume] in Serum or PlasmaOrdered By: Rose Ohara on 04-12-2023 AST [Catalytic activity/Vol] 16 U/L 13-[address] [facility] Basophils Auto (Bld) [#/Vol] Ordered By: Rose Ohara on 04-12-2023 Basophils (Bld) [#/Vol] 0.1 10*3/uL 0.0-0.[address] [facility] Basophils/100 WBC Auto (Bld) Ordered By: Rose Ohara on 04-12-2023 Basophils/100 WBC (Bld) 0.9 % . [facility] Bilirubin.total [Mass/volume ] in Serum or PlasmaOrdered By: Rose Ohara on 04-12-2023 Bilirubin [Mass/Vol] 0.9 mg/dL 0.3-1.0 [facility] Calcium [Mass/volume] in Ser um or PlasmaOrdered By: Rose Ohara on 04-12-2023 Calcium [Mass/Vol] 9.1 mg/dL 8.6-10.3 [facility] Carbon dioxide, total [Moles /volume] in Serum or PlasmaOrdered By: Rose Ohara on 04-12-2023 CO2 [Moles/Vol] 27.2 mmol/L 21.0-31.0 [facility] Chloride [Moles/volume] in S marlena or PlasmaOrdered By: Rose Ohara on 04-12-2023 Chloride [Moles/Vol] 102 mmol/L 98-107 [facility] Complete Blood Count Auto Di ffon 04-12-2023 Basophils (Bld) [#/Vol] 0.1 10*3/uL Normal 0.0-0.[address] [facility] Comment on above: Result Comment: PERF ORMED BY: [facility] [address] [place] [address] PATHOLOGIST RECREATION DIRECTOR SHEBA RICO M.D. Performed By: #### C BC, LDH, CMP #### [facility] [address] [place] [address] [place] Basophils/100 WBC (Bld) 0.9 % Normal . [facility] Comment on above: Performed By: #### C BC, LDH, CMP #### [facility] [address] [place] [address] [place] Eosinophils (Bld) [#/Vol] 0.2 10*3/uL Normal 0.0-0.[address] [facility] Comment on above: Performed By: #### C BC, LDH, CMP #### [facility] [address] [place] [address] [place] Eosinophils/100 WBC (Bld) 2.2 % Normal . [facility] Comment on above: Performed By: #### C BC, LDH, CMP #### [facility] [address] Erythrocyte distribution width (RBC) [Ratio] 14.7 % Normal 11.9-15.[address] [facility] Comment on above: Performed By: #### C BC, LDH, CMP #### [facility] [address] [place] [address] [place] Hematocrit (Bld) [Volume fraction] 41.4 % Normal 34.0-46.[address] [facility] Comment on above: Performed By: #### C BC, LDH, CMP #### [facility] [address] [place] [address] [place] Hemoglobin (Bld) [Mass/Vol] 13.5 g/dL Normal 11.8-15.[address] [facility] Comment on above: Performed By: #### C BC, LDH, CMP #### [facility] [address] [place] [address] [place] Lymphocytes (Bld) [#/Vol] 1.8 10*3/uL Normal 1.00-4.[address] [facility] Comment on above: Performed By: #### C BC, LDH, CMP #### [facility] [address] [place] [address] [place] Lymphocytes/100 WBC (Bld) 26.0 % Normal . [facility] Comment on above: Performed By: #### C BC, LDH, CMP #### [facility] [address] MCH (RBC) [Entitic mass] 29.3 pg Normal 24.7-34.[address] [facility] Comment on above: Performed By: #### C BC, LDH, CMP #### [address] MCV (RBC) [Entitic vol] 89.4 fL Normal 80-[address] [facility] Comment on above: Performed By: #### C BC, LDH, CMP #### [address] Mean Corpuscular HGB Conc 32.7 g/dL Normal 32.0-35.[address] [facility] Comment on above: Performed By: #### C BC, LDH, CMP #### [address] Monocytes (Bld) [#/Vol] 0.6 10*3/uL Normal 0.0-0.[address] [facility] Comment on above: Performed By: #### C BC, LDH, CMP #### [address] Monocytes/100 WBC (Bld) 8.6 % Normal . [facility] Comment on above: Performed By: #### C BC, LDH, CMP #### [address] Neutrophils (Bld) [#/Vol] 4.3 10*3/uL Normal 1.8-7.[address] [facility] Comment on above: Performed By: #### C BC, LDH, CMP #### [address] Neutrophils/100 WBC (Bld) 62.3 % Normal . [facility] Comment on above: Performed By: #### C BC, LDH, CMP #### [address] NRBC% 0.1 /100{WBC} Normal 0-0.[address] [facility] Comment on above: Performed By: #### C BC, LDH, CMP #### [facility] [address] Platelet mean volume (Bld) [Entitic vol] 8.3 fL Normal 6.3-10.[address] [facility] Comment on above: Performed By: #### C BC, LDH, CMP #### [facility] [address] Platelets (Bld) [#/Vol] 197 10*3/uL Normal 150-[address] [facility] Comment on above: Performed By: #### C BC, LDH, CMP #### [address] RBC (Bld) [#/Vol] 4.62 10*6/uL Normal 3.60-5.00 [facility] Comment on above: Performed By: #### C BC, LDH, CMP #### [address] WBC (Bld) [#/Vol] 6.9 10*3/uL Normal 3.8-11.6 [facility] Comment on above: Performed By: #### C BC, LDH, CMP #### [address] Comprehensive Metabolic Pane heladio 04-12-2023 Albumin [Mass/Vol] 4.1 g/dL Normal 3.5-5.7 [facility] Comment on above: Performed By: #### C BC, LDH, CMP #### [address] Albumin/Globulin [Mass ratio] 1.6 {ratio} Normal [facility] Comment on above: Performed By: #### C BC, LDH, CMP #### [address] ALP [Catalytic activity/Vol] 57 U/L Normal 34-[address] [facility] Comment on above: Performed By: #### C BC, LDH, CMP #### [address] [place] [address] [place] ALT [Catalytic activity/Vol] 17 U/L Normal 7-[address] [facility] Comment on above: Performed By: #### C BC, LDH, CMP #### [facility] [address] Anion gap [Moles/Vol] 15.6 mmol/L High 6.0-15.0 [facility] Comment on above: Performed By: #### C BC, LDH, CMP #### [facility] [address] AST [Catalytic activity/Vol] 16 U/L Normal 13-[address] [facility] Comment on above: Performed By: #### C BC, LDH, CMP #### [facility] [address] Bilirubin [Mass/Vol] 0.9 mg/dL Normal 0.3-1.0 [facility] Comment on above: Performed By: #### C BC, LDH, CMP #### [address] Calcium [Mass/Vol] 9.1 mg/dL Normal 8.6-10.3 [facility] Comment on above: Performed By: #### C BC, LDH, CMP #### [address] Chloride [Moles/Vol] 102 mmol/L Normal 98-107 [facility] Comment on above: Performed By: #### C BC, LDH, CMP #### [facility] [address] CO2 [Moles/Vol] 27.2 mmol/L Normal 21.0-31.0 [facility] Comment on above: Performed By: #### C BC, LDH, CMP #### [facility] [address] Creatinine [Mass/Vol] 1.01 mg/dL Normal 0.60-1.20 [facility] Comment on above: Performed By: #### C BC, LDH, CMP #### [facility] [address] [place] [address] [place] Creatinine Clr Calc Pharmacy 54.77 [facility] Comment on above: Performed By: #### C BC, LDH, CMP #### [place] [address] [place] GFR/1.73 sq M.predicted MDRD (S/P/Bld) [Vol rate/Area] 58.780 mL/min/{1.73_m2} [facility] Comment on above: Performed By: #### C BC, LDH, CMP #### [facility] [address] Globulin (S) [Mass/Vol] 2.6 g/dL [facility] Comment on above: Performed By: #### C BC, LDH, CMP #### [address] Glucose [Mass/Vol] 203 mg/dL High 70-100 [facility] Comment on above: Result Comment: [facility] Glucose Reference Range is dependent on time and content of last meal. Glucose of more than 200 mg/dL in a nonstressed, ambulatory subject supports the diagnosis of Diabetes Mellitus. ADA recommended reference range Performed By: #### C BC, LDH, CMP #### [address] Potassium [Moles/Vol] 4.8 mmol/L Normal 3.5-5.1 [facility] Comment on above: Performed By: #### C BC, LDH, CMP #### [address] Protein [Mass/Vol] 6.7 g/dL Normal 6.4-8.9 [facility] Comment on above: Performed By: #### C BC, LDH, CMP #### [address] Sodium [Moles/Vol] 140 mmol/L Normal 136-145 [facility] Comment on above: Performed By: #### C BC, LDH, CMP #### [address] Urea nitrogen [Mass/Vol] 34 mg/dL High 7-[address] [facility] Comment on above: Performed By: #### C BC, LDH, CMP #### [facility] [address] [place] [id number] [facility] Creatinine [Mass/volume] in Serum or PlasmaOrdered By: Rose Ohara on 04-12-2023 Creatinine [Mass/Vol] 1.01 mg/dL 0.60-1.20 [facility] Eosinophils Auto (Bld) [#/Vo l]Ordered By: Rose Ohara on 04-12-2023 Eosinophils (Bld) [#/Vol] 0.2 10*3/uL 0.0-0.[address] [facility] Eosinophils/100 WBC Auto (Bl d)Ordered By: Rose Ohara on 04-12-2023 Eosinophils/100 WBC (Bld) 2.2 % . [facility] Erythrocyte distribution wid th Auto (RBC) [Ratio]Ordered By: Rose Ohara on 04-12-2023 Erythrocyte distribution width (RBC) [Ratio] 14.7 % 11.9-15.[address] [facility] Globulin Calc (S) [Mass/Vol] Ordered By: Rose Ohara on 04-12-2023 Globulin (S) [Mass/Vol] 2.6 g/dL [facility] Glucose [Mass/volume] in Ser um or PlasmaOrdered By: Rose Ohara on 04-12-2023 Glucose [Mass/Vol] 203 mg/dL 70-100 [facility] Comment on above: ADA recommended refe rence rangeRandom Glucose Reference Range is dependent on time and content of last meal. Glucose of more than 200 mg/dL in a nonstressed, ambulatory subject supports the diagnosis of Diabetes Mellitus. Hematocrit Auto (Bld) [Volum e fraction]Ordered By: Rose Ohara on 04-12-2023 Hematocrit (Bld) [Volume fraction] 41.4 % 34.0-46.[address] [facility] Hemoglobin [Mass/volume] in BloodOrdered By: Rose Ohara on 04-12-2023 Hemoglobin (Bld) [Mass/Vol] 13.5 g/dL 11.8-15.[address] [facility] LDH Lactate Dehydrogenaseon 04-12-2023 LDH Lactate Dehydrogenase 120 U/L Low 140-[address] [facility] Comment on above: Result Comment: PERF ORMED BY: [facility] [address] [place] [address] PATHOLOGIST RECREATION DIRECTOR SHEBA RICO M.D. Performed By: #### C BC, LDH, CMP #### [facility] [address] Lactate dehydrogenase [Enzym atic activity/volume] in Serum or Plasma by Lactate to pyOrdered By: Rose Ohara on 04-12-2023 LDH Lactate to pyruvate reaction [Catalytic activity/Vol] 120 U/L 140-[address] [facility] Leukocytes [#/volume] correc jin for nucleated erythrocytes in Blood by Automated counOrdered By: Rose Ohara on 04-12-2023 WBC corrected for nucl RBC Auto (Bld) [#/Vol] 6.9 10*3/uL 3.8-11.[address] [facility] Lymphocytes Auto (Bld) [#/Vo l]Ordered By: Rose Ohara on 04-12-2023 Lymphocytes (Bld) [#/Vol] 1.8 10*3/uL 1.00-4.[address] [facility] Lymphocytes/100 WBC Auto (Bl d)Ordered By: Rose Ohara on 04-12-2023 Lymphocytes/100 WBC (Bld) 26.0 % . [facility] MCH Auto (RBC) [Entitic mass ]Ordered By: Rose Ohara on 04-12-2023 MCH (RBC) [Entitic mass] 29.3 pg 24.7-34.[address] [facility] MCHC Auto (RBC) [Mass/Vol]Or dered By: Rose Ohara on 04-12-2023 MCHC (RBC) [Mass/Vol] 32.7 g/dL 32.0-35.0 [facility] MCV Auto (RBC) [Entitic vol] Ordered By: Rose Ohara on 04-12-2023 MCV (RBC) [Entitic vol] 89.4 fL 80-[address] [facility] Monocytes Auto (Bld) [#/Vol] Ordered By: Rose Ohara on 04-12-2023 Monocytes (Bld) [#/Vol] 0.6 10*3/uL 0.0-0.[address] [facility] Monocytes/100 WBC Auto (Bld) Ordered By: Rose Ohara on 04-12-2023 Monocytes/100 WBC (Bld) 8.6 % . [facility] Neutrophils Auto (Bld) [#/Vo l]Ordered By: Rose Ohara on 04-12-2023 Neutrophils (Bld) [#/Vol] 4.3 10*3/uL 1.8-7.[address] [facility] Neutrophils/100 WBC Auto (Bl d)Ordered By: Rose Ohara on 04-12-2023 Neutrophils/100 WBC (Bld) 62.3 % . [facility] No Panel InformationOrdered By: Rose Ohara on 04-12-2023 Estimated GFR (CKD-EPI) 58.780 mL/Min [facility] Creatinine Clearance (Chem 54.[address] [facility] Nucleated erythrocytes [Pres ence] in Blood by Automated countOrdered By: Rose Ohara on 04-12-2023 Nucleated RBC Auto Ql (Bld) 0.1 /100{WBC} 0-0.[address] [facility] Platelet mean volume Auto (B ld) [Entitic vol]Ordered By: Rose Ohara on 04-12-2023 Platelet mean volume (Bld) [Entitic vol] 8.3 fL 6.3-10.[address] [facility] Platelets Auto (Bld) [#/Vol] Ordered By: Rose Ohara on 04-12-2023 Platelets (Bld) [#/Vol] 197 10*3/uL 150-[address] [facility] Potassium [Moles/volume] in Serum or PlasmaOrdered By: Rose Ohara on 04-12-2023 Potassium [Moles/Vol] 4.8 mmol/L 3.5-5.1 [facility] Protein [Mass/volume] in Ser um or PlasmaOrdered By: Rose Ohara on 04-12-2023 Protein [Mass/Vol] 6.7 g/dL 6.4-8.9 [facility] RBC Auto (Bld) [#/Vol]Ordere d By: Rose Ohara on 04-12-2023 RBC (Bld) [#/Vol] 4.62 10*6/uL 3.60-5.00 [facility] Serum or plasma albumin/glob ulin mass ratioOrdered By: Rose Ohara on 04-12-2023 Albumin/Globulin [Mass ratio] 1.6 {ratio} [facility] Serum or plasma anion gap de terminationOrdered By: Rose Ohara on 04-12-2023 Anion gap [Moles/Vol] 15.6 mmol/L 6.0-15.0 [facility] Sodium [Moles/volume] in Ser um or PlasmaOrdered By: Rose Ohara on 04-12-2023 Sodium [Moles/Vol] 140 mmol/L 136-145 [facility] Urea nitrogen [Mass/volume] in Serum or PlasmaOrdered By: Rose Ohara on 04-12-2023 Urea nitrogen [Mass/Vol] 34 mg/dL 7-[address] [facility] WBC Auto (Bld) [#/Vol]Ordere d By: Rose Ohara on 04-12-2023 WBC (Bld) [#/Vol] 6.9 10*3/uL 3.8-11.6 [facility] US extremity nonvascularon 0 04-07-2023 US extremity nonvascular [facility] [address] Ultrasound Report Signed Patient: Tosha Mcneal MR#: [id number] : 1950 Acct:[id number] Age/Sex: 72 / F ADM Date: 04/07/23 Loc: Room: Type: [facility] Attending Dr: Rose Ohara MD Ordering Provider: [...] Kruse Jr., D.O.04/07/2023 8:57 AM Dictation Location: [facility] Tech: Valerie Frankel Transcribed By: PWS 04/07/2357 Dictated By: Miki Kruse Jr, DO 04/07/2344 Signed By: 04/07/23[address] [facility] LIPID PROFILEon 03-03-2023 CHOL-HDL RATIO NORM SEE BELOW Normal [facility] Comment on above: Result Comment: 3.3 - 4.4 LOW RISK 4.4 - 7.1 AVERAGE RISK 7.1 - 11.0 MODERATE RISK >11.0 HIGH RISK Performed By: #### L IPID #### [facility] [address] [place] [address] [address] Claudia Branch Cholesterol [Mass/Vol] 129 mg/dL Normal <=200 [facility] Comment on above: Performed By: #### L IPID #### [facility] [address] [place] [address] [address] Claudia Branch Cholesterol in HDL [Mass/Vol] 43 mg/dL Normal 40-60 [facility] Comment on above: Performed By: #### L IPID #### [facility] [address] [place] [address] [address] Claudia Branch Cholesterol in LDL [Mass/Vol] 34.4 mg/dL Normal [facility] Comment on above: Performed By: #### L IPID #### [facility] [address] [place] [address] [address] Claudia Branch Cholesterol.total/Chol esterol in HDL [Mass ratio] 3.0 {ratio} Normal [facility] Comment on above: Performed By: #### L IPID #### [facility] [address] [place] [address] [address] Claudia Branch HDL NORMAL > or = 60 mg/dl - LO W CARDIOVASCULAR RISK <40 mg/dl - HIGH CARDIOVASCULAR RISK Normal [facility] Comment on above: Performed By: #### L IPID #### [facility] [address] [place] [address] [address] Claudia Branch LDL CALC NORMAL SEE BELOW Normal [facility] Comment on above: Result Comment: <100 mg/dl OPTIMAL 100 - 129 mg/dl NEAR OR ABOVE OPTIMAL 130 - 159 mg/dl BORDERLINE HIGH 160 - 189 mg/dl HIGH >190 mg/dl VERY HIGH Performed By: #### L IPID #### [facility] [address] [place] [address] Dr. Claudia Branch Triglyceride [Mass/Vol] 258 mg/dL Critically high <=150 [facility] Comment on above: Performed By: #### L IPID #### [facility] [address] [place] [address] Dr. Claudia Branch VLDL CALC 51.6 mg/dL Normal [facility] Comment on above: Performed By: #### L IPID #### [facility] [address] [place] [address] Dr. Claudia Branch PROF 14(COMP METB)on 023 Albumin [Mass/Vol] 3.7 g/dL Normal 3.4-5.0 [facility] Comment on above: Performed By: #### C MP #### [facility] [address] [place] [address] Dr. Claudia Branch Albumin/Globulin [Mass ratio] 1.1 {ratio} Normal [facility] Comment on above: Performed By: #### C MP #### [facility] [address] [place] [address] Dr. Claudia Branch ALP [Catalytic activity/Vol] 66 U/L Normal 46-116 [facility] Comment on above: Performed By: #### C MP #### [facility] [address] [place] [address] Dr. Claudia Branch ALT [Catalytic activity/Vol] 22 U/L Normal 14-59 [facility] Comment on above: Performed By: #### C MP #### [facility] [address] [place] [address] Dr. Claudia Branch Anion gap [Moles/Vol] 15.4 mmol/L Normal [facility] Comment on above: Performed By: #### C MP #### [facility] [address] [address] [address] Claudia Branch AST [Catalytic activity/Vol] 14 U/L Critically low 15-37 [facility] Comment on above: Performed By: #### C MP #### [facility] [address] [address] [address] Claudia Branch Bilirubin [Mass/Vol] 1.0 mg/dL Normal 0.2-1.0 [facility] Comment on above: Performed By: #### C MP #### [facility] [address] [address] [address] Claudia Branch Calcium [Mass/Vol] 9.4 mg/dL Normal 8.5-10.1 [facility] Comment on above: Performed By: #### C MP #### [facility] [address] [address] [address] Claudia Branch Chloride [Moles/Vol] 102 mmol/L Normal 98-107 [facility] Comment on above: Performed By: #### C MP #### [facility] [address] [address] [address] Claudia Branch CO2 [Moles/Vol] 28.0 mmol/L Normal 21.0-32.0 [facility] Comment on above: Performed By: #### C MP #### [facility] [address] [address] [address] Claudia Branch Creatinine [Mass/Vol] 1.04 mg/dL Critically high 0.55-1.02 [facility] Comment on above: Performed By: #### C MP #### [facility] [address] [address] [address] Claudia Bracnh EGFR-AF ERITREAN >60 Normal >=60 [facility] Comment on above: Performed By: #### C MP #### [facility] [address] [address] [address] Claudia Branch EGFR-NON AF ERITREAN 52 mL/min/1.73m2 Critically low >=60 [facility] Comment on above: Performed By: #### C MP #### [facility] [address] [address] [address] Claudia Branch Globulin (S) [Mass/Vol] 3.5 g/dL Normal [facility] Comment on above: Performed By: #### C MP #### [facility] [address] [address] [address] Claudia Branch Glucose [Mass/Vol] 174 mg/dL Critically high 74-106 [facility] Comment on above: Performed By: #### C MP #### [facility] [address] [address] [address] Claudia Branch Potassium [Moles/Vol] 5.4 mmol/L Critically high 3.5-5.1 [facility] Comment on above: Performed By: #### C MP #### [facility] [address] [address] [address] Claudia Branch Protein [Mass/Vol] 7.2 g/dL Normal 6.4-8.2 [facility] Comment on above: Performed By: #### C MP #### [facility] [address] [address] [address] Claudia Branch Sodium [Moles/Vol] 140 mmol/L Normal 136-145 [facility] Comment on above: Performed By: #### C MP #### [facility] [address] [address] [address] Claudia Branch Urea nitrogen [Mass/Vol] 26.0 mg/dL Critically high 7.0-18.0 [facility] Comment on above: Performed By: #### C MP #### [facility] [address] [address] [address] Claudia Branch Urea nitrogen/Creatinine [Mass ratio] 25.0 mg/mg Normal [facility] Comment on above: Performed By: #### C MP #### [facility] [address] [place] [address] Dr. Claudia Branch Estimated glomerular filtrat ion rate (GFR) non- AmericanOrdered By: Rose Ohara on 12-21-2022 GFR/1.73 sq M.predicted among non-blacks MDRD (S/P/Bld) [Vol rate/Area] > 60 mL/Min [facility] No Panel InformationOrdered By: Rose Ohara on 12-21-2022 Estimated GFR () > 60 mL/Min [facility] Comment on above: GFR estimated refere nce range: According to KDOQI guidelines, <60 ml/min/1.73m2 is sufficient to diagnose a patient with chronic kidney disease. Albumin [Mass/volume] in Ser um or PlasmaOrdered By: Rose Ohara on 09-22-2022 Albumin [Mass/Vol] 3.7 g/dL 3.2-5.5 [facility] Basophils Auto (Bld) [#/Vol] Ordered By: Rose Ohara on 09-22-2022 Basophils (Bld) [#/Vol] 0.1 10*3/uL 0.0-0.[address] [facility] Basophils/100 WBC Auto (Bld) Ordered By: Rose Ohara on 09-22-2022 Basophils/100 WBC (Bld) 1.0 % . [facility] Creatinine and Glomerular fi ltration rate.predicted panel (S/P/Bld)Ordered By: Rose Ohara on 09-22-2022 Creatinine [Mass/Vol] 0.80 mg/dL 0.44-1.03 [facility] Eosinophils Auto (Bld) [#/Vo l]Ordered By: Rose Ohara on 09-22-2022 Eosinophils (Bld) [#/Vol] 0.1 10*3/uL 0.0-0.[address] [facility] Eosinophils/100 WBC Auto (Bl d)Ordered By: Rose Ohara on 09-22-2022 Eosinophils/100 WBC (Bld) 2.0 % . [facility] Erythrocyte distribution wid th Auto (RBC) [Ratio]Ordered By: Rose Ohara on 09-22-2022 Erythrocyte distribution width (RBC) [Ratio] 14.7 % 11.9-15.[address] [facility] Estimated glomerular filtrat ion rate (GFR) non- AmericanOrdered By: Rose Ohara on 09-22-2022 GFR/1.73 sq M.predicted among non-blacks MDRD (S/P/Bld) [Vol rate/Area] > 60 mL/Min [facility] Globulin Calc (S) [Mass/Vol] Ordered By: Rose Ohara on 09-22-2022 Globulin (S) [Mass/Vol] 2.8 g/dL [facility] Hematocrit Auto (Bld) [Volum e fraction]Ordered By: Rose Ohara on 09-22-2022 Hematocrit (Bld) [Volume fraction] 43.2 % 34.0-46.[address] [facility] Hemoglobin [Mass/volume] in BloodOrdered By: Rose Ohara on 09-22-2022 Hemoglobin (Bld) [Mass/Vol] 13.9 g/dL 11.8-15.[address] [facility] - Hematology and Cell countsOrdered By: Rose Ohara on 09-22-2022 Nucleated RBC/100 WBC (Bld) [Ratio] 0.1 % 0-0.[address] [facility] Lactate dehydrogenase measur ement (enzymatic activity/volume)Ordered By: Rose Ohara on 09-22-2022 LDH (Unsp spec) [Catalytic activity/Vol] 106 U/L 45-[address] [facility] Leukocytes [#/volume] in Blo od by Automated countOrdered By: Rose Ohara on 09-22-2022 WBC (Bld) [#/Vol] 6.9 10*3/uL 4.5-11.0 [facility] Lymphocytes Auto (Bld) [#/Vo l]Ordered By: Rose Ohara on 09-22-2022 Lymphocytes (Bld) [#/Vol] 1.5 10*3/uL 1.00-4.[address] [facility] Lymphocytes/100 WBC Auto (Bl d)Ordered By: Rose Ohara on 09-22-2022 Lymphocytes/100 WBC (Bld) 21.6 % . [facility] MCH Auto (RBC) [Entitic mass ]Ordered By: Rose Ohara on 09-22-2022 MCH (RBC) [Entitic mass] 29.0 pg 24.7-34.[address] [facility] MCHC Auto (RBC) [Mass/Vol]Or dered By: Rose Ohara on 09-22-2022 MCHC (RBC) [Mass/Vol] 32.2 g/dL 32.0-35.0 [facility] MCV Auto (RBC) [Entitic vol] Ordered By: Rose Ohara on 09-22-2022 MCV (RBC) [Entitic vol] 90.2 fL 80-[address] [facility] Monocytes Auto (Bld) [#/Vol] Ordered By: Rose Ohara on 09-22-2022 Monocytes (Bld) [#/Vol] 0.7 10*3/uL 0.0-0.[address] [facility] Monocytes/100 WBC Auto (Bld) Ordered By: Rose Ohara on 09-22-2022 Monocytes/100 WBC (Bld) 9.7 % . [facility] Neutrophils Auto (Bld) [#/Vo l]Ordered By: Rose Ohara on 09-22-2022 Neutrophils (Bld) [#/Vol] 4.5 10*3/uL 1.8-7.[address] [facility] Neutrophils/100 WBC Auto (Bl d)Ordered By: Rose Ohara on 09-22-2022 Neutrophils/100 WBC (Bld) 65.7 % . [facility] No Panel InformationOrdered By: Rose Ohara on 09-22-2022 Estimated GFR () > 60 mL/Min [facility] Comment on above: GFR estimated refere nce range: According to KDOQI guidelines, <60 ml/min/1.73m2 is sufficient to diagnose a patient with chronic kidney disease. Pharmacy Creatinine Clearance (Chem 70.[address] [facility] Platelet mean volume Auto (B ld) [Entitic vol]Ordered By: Rose Ohara on 09-22-2022 Platelet mean volume (Bld) [Entitic vol] 8.0 fL 6.3-10.[address] [facility] Platelets Auto (Bld) [#/Vol] Ordered By: Rose Ohara on 09-22-2022 Platelets (Bld) [#/Vol] 227 10*3/uL 150-[address] [facility] Protein [Mass/volume] in Ser um or PlasmaOrdered By: Rose Ohara on 09-22-2022 Protein [Mass/Vol] 6.5 g/dL 6.1-7.9 [facility] RBC Auto (Bld) [#/Vol]Ordere d By: Rose Ohara on 09-22-2022 RBC (Bld) [#/Vol] 4.79 10*6/uL 3.60-5.00 [facility] Serum or plasma alanine mari otransferase measurement without P-5'-P (enzymatic activiOrdered By: Rose Ohara on 09-22-2022 ALT No additional P-5'-P [Catalytic activity/Vol] 16 U/L 10-[address] [facility] Serum or plasma albumin/glob ulin mass ratioOrdered By: Rose Ohara on 09-22-2022 Albumin/Globulin [Mass ratio] 1.3 {ratio} [facility] Serum or plasma alkaline danial sphatase measurement (enzymatic activity/volume)Ordered By: Rose Ohara on 09-22-2022 ALP [Catalytic activity/Vol] 45 U/L 32-[address] [facility] Serum or plasma anion gap de terminationOrdered By: Rose Ohara on 09-22-2022 Anion gap [Moles/Vol] 11.0 mmol/L 6.0-15.0 [facility] Serum or plasma aspartate am inotransferase measurement (enzymatic activity/volume)Ordered By: Rose Ohara on 09-22-2022 AST [Catalytic activity/Vol] 17 U/L 10-[address] [facility] Serum or plasma calcium kandi urement (mass/volume)Ordered By: Rose Ohara on 09-22-2022 Calcium [Mass/Vol] 9.2 mg/dL 8.2-10.2 [facility] Serum or plasma chloride florentino surement (moles/volume)Ordered By: Rose Ohara on 09-22-2022 Chloride [Moles/Vol] 99 mmol/L 95-114 [facility] Serum or plasma glucose kandi urement (mass/volume)Ordered By: Rose Ohara on 09-22-2022 Glucose [Mass/Vol] 113 mg/dL 70-100 [facility] Comment on above: ADA recommended refe rence rangeRandom Glucose Reference Range is dependent on time and content of last meal. Glucose of more than 200 mg/dL in a nonstressed, ambulatory subject supports the diagnosis of Diabetes Mellitus. Serum or plasma potassium me asurement (moles/volume)Ordered By: Rose Ohara on 09-22-2022 Potassium [Moles/Vol] 4.3 mmol/L 3.5-5.1 [facility] Serum or plasma sodium measu rement (moles/volume)Ordered By: Rose Lev on 09-22-2022 Sodium [Moles/Vol] 135 mmol/L 136-146 [facility] Serum or plasma total biliru bin measurement (mass/volume)Ordered By: Rose Thompsonse on 09-22-2022 Bilirubin [Mass/Vol] 1.2 mg/dL 0.3-1.2 [facility] Serum or plasma total carbon dioxide measurement (moles/volume)Ordered By: Rose Ohara on 09-22-2022 CO2 [Moles/Vol] 29.3 mmol/L 22.0-30.0 [facility] Serum or plasma urea nitroge n measurement (mass/volume)Ordered By: Rose Ohara on 09-22-2022 Urea nitrogen [Mass/Vol] 16 mg/dL 9-[address] [facility] GLYCOHEMOGLOBIN A1Con 2021 ADA RECOMMENDATION SEE BELOW Normal [facility] Comment on above: Result Comment: ADA RECOMMENDED LIMIT 4.0 - 6.0 ADA THERAPEUTIC TARGET < 7.0 ACTION SUGGESTED > 7.0 Performed By: #### A 1C #### [facility] [address] [address] [address] Claudia Branch Glucose [Mass/Vol] 169 mg/dL Normal [facility] Comment on above: Performed By: #### A 1C #### [facility] [address] [address] [address] Claudia Branch HbA1c (Bld) [Mass fraction] 7.5 % Critically high 4.5-6.2 [facility] Comment on above: Performed By: #### A 1C #### [facility] [address] [address] [address] Claudia Branch LIPID PROFILEon 08-26-2022 CHOL-HDL RATIO NORM SEE BELOW Normal [facility] Comment on above: Result Comment: 3.3 - 4.4 LOW RISK 4.4 - 7.1 AVERAGE RISK 7.1 - 11.0 MODERATE RISK >11.0 HIGH RISK Performed By: #### L IPID, CMP #### [facility] [address] [address] [address] Claudia Branch Cholesterol [Mass/Vol] 99 mg/dL Normal <=200 [facility] Comment on above: Performed By: #### L IPID, CMP #### [facility] [id number] Claudia Branch Cholesterol in HDL [Mass/Vol] 45 mg/dL Normal 40-60 [facility] Comment on above: Performed By: #### L IPID, CMP #### [facility] [address] [address] [address] Claudia Branch Cholesterol in LDL [Mass/Vol] 22.6 mg/dL Normal [facility] Comment on above: Performed By: #### L IPID, CMP #### [facility] [address] [address] [address] Claudia Branch Cholesterol.total/Chol esterol in HDL [Mass ratio] 2.2 {ratio} Normal [facility] Comment on above: Performed By: #### L IPID, CMP #### [facility] [address] [address] [address] Claudia Branch HDL NORMAL > or = 60 mg/dl - LO W CARDIOVASCULAR RISK <40 mg/dl - HIGH CARDIOVASCULAR RISK Normal [facility] Comment on above: Performed By: #### L IPID, CMP #### [facility] [address] [address] [address] Claudia Branch LDL CALC NORMAL SEE BELOW Normal [facility] Comment on above: Result Comment: <100 mg/dl OPTIMAL 100 - 129 mg/dl NEAR OR ABOVE OPTIMAL 130 - 159 mg/dl BORDERLINE HIGH 160 - 189 mg/dl HIGH >190 mg/dl VERY HIGH Performed By: #### L IPID, CMP #### [facility] [address] [address] [address] Claudia Branch Triglyceride [Mass/Vol] 157 mg/dL Critically high <=150 [facility] Comment on above: Performed By: #### L IPID, CMP #### [facility] [address] [address] [address] Claudia Branch VLDL CALC 31.4 mg/dL Normal [facility] Comment on above: Performed By: #### L IPID, CMP #### [facility] [address] [place] [address] Dr. Claudia Branch PROF 14(COMP METB)on 022 Albumin [Mass/Vol] 3.9 g/dL Normal 3.4-5.0 [facility] Comment on above: Performed By: #### L IPID, CMP #### [facility] [address] [place] [address] Dr. Claudia Branch Albumin/Globulin [Mass ratio] 1.0 {ratio} Normal [facility] Comment on above: Performed By: #### L IPID, CMP #### [facility] [address] [place] [address] Dr. Claudia Branch ALP [Catalytic activity/Vol] 57 U/L Normal 46-116 [facility] Comment on above: Performed By: #### L IPID, CMP #### [facility] [address] [place] [address] Dr. Claudia Branch ALT [Catalytic activity/Vol] 22 U/L Normal 14-59 [facility] Comment on above: Performed By: #### L IPID, CMP #### [facility] [address] [place] [address] Dr. Claudia Branch Anion gap [Moles/Vol] 10.7 mmol/L Normal [facility] Comment on above: Performed By: #### L IPID, CMP #### [facility] [address] [place] [address] Dr. Claudia Branch AST [Catalytic activity/Vol] 11 U/L Critically low 15-37 [facility] Comment on above: Performed By: #### L IPID, CMP #### [facility] [address] [place] [address] Dr. Claudia Branch Bilirubin [Mass/Vol] 1.4 mg/dL Critically high 0.2-1.0 [facility] Comment on above: Performed By: #### L IPID, CMP #### [facility] [address] [place] [address] Dr. Claudia Branch Calcium [Mass/Vol] 9.3 mg/dL Normal 8.5-10.1 [facility] Comment on above: Performed By: #### L IPID, CMP #### [facility] [address] [place] [address] Dr. Claudia Branch Chloride [Moles/Vol] 103 mmol/L Normal 98-107 [facility] Comment on above: Performed By: #### L IPID, CMP #### [facility] [address] [place] [address] Dr. Claudia Branch CO2 [Moles/Vol] 31.2 mmol/L Normal 21.0-32.0 [facility] Comment on above: Performed By: #### L IPID, CMP #### [facility] [address] [place] [address] Dr. Claudia Branch Creatinine [Mass/Vol] 0.83 mg/dL Normal 0.55-1.02 [facility] Comment on above: Performed By: #### L IPID, CMP #### [facility] [address] [place] [address] Dr. Claudia Branch EGFR-AF ERITREAN >60 Normal >=60 [facility] Comment on above: Performed By: #### L IPID, CMP #### [facility] [address] [place] [address] Dr. Claudia Branch EGFR-NON AF ERITREAN >60 Normal >=60 [facility] Comment on above: Performed By: #### L IPID, CMP #### [facility] [address] [place] [address] Dr. Claudia Branch Globulin (S) [Mass/Vol] 3.6 g/dL Normal [facility] Comment on above: Performed By: #### L IPID, CMP #### [facility] [address] [place] [address] Dr. Claudia Branch Glucose [Mass/Vol] 114 mg/dL Critically high 74-106 [facility] Comment on above: Performed By: #### L IPID, CMP #### [facility] [address] [place] [address] Dr. Claudia Branch Potassium [Moles/Vol] 4.4 mmol/L Normal 3.5-5.1 [facility] Comment on above: Performed By: #### L IPID, CMP #### [facility] [address] [place] [address] Dr. Claudia Branch Protein [Mass/Vol] 7.5 g/dL Normal 6.4-8.2 [facility] Comment on above: Performed By: #### L IPID, CMP #### [facility] [address] [place] [address] Dr. Claudia Branch Sodium [Moles/Vol] 141 mmol/L Normal 136-145 [facility] Comment on above: Performed By: #### L IPID, CMP #### [facility] [address] [place] [address] Dr. Claudia Branch Urea nitrogen [Mass/Vol] 20.0 mg/dL Critically high 7.0-18.0 [facility] Comment on above: Performed By: #### L IPID, CMP #### [facility] [address] [place] [address] Dr. Claudia Branch Urea nitrogen/Creatinine [Mass ratio] 24.0 mg/mg Normal [facility] Comment on above: Performed By: #### L IPID, CMP #### [facility] [address] [place] [address] Dr. Claudia Branch GI PANEL (PCR)on 08-11-2022 Adenovirus F 40/41 Not detected Normal NOT DETECTED [facility] Comment on above: Performed By: #### G IPANEL #### [facility] [address] [place] [address] Dr. Claudia Branch Astrovirus Not detected Normal NOT DETECTED [facility] Comment on above: Performed By: #### G IPANEL #### [facility] [address] [place] [address] Dr. Claudia Branch C. Diff toxin A/B Detected Critically abnormal NOT DETECTED [facility] Comment on above: Performed By: #### G IPANEL #### [facility] [address] [place] [address] Dr. Claudia Branch Campylobacter Not detected Normal NOT DETECTED [facility] Comment on above: Performed By: #### G IPANEL #### [facility] [address] [place] [address] Dr. Claudia Branch Cryptosporidium Not detected Normal NOT DETECTED [facility] Comment on above: Performed By: #### G IPANEL #### [facility] [address] [place] [address] Dr. Claudia Branch Cyclos. Cayetanensis Not detected Normal NOT DETECTED [facility] Comment on above: Performed By: #### G IPANEL #### [facility] [address] [place] [address] Dr. Claudia Branch E. Coli O157 Not Applicable Normal Not Applicable [facility] Comment on above: Performed By: #### G IPANEL #### [facility] [address] [place] [address] Dr. Claudia Branch E. histolytica Not detected Normal NOT DETECTED [facility] Comment on above: Performed By: #### G IPANEL #### [facility] [address] [place] [address] Dr. Claudia Branch EAEC Not detected Normal NOT DETECTED [facility] Comment on above: Performed By: #### G IPANEL #### [facility] [address] [place] [address] Dr. Claudia Branch EIEC Not detected Normal NOT DETECTED [facility] Comment on above: Performed By: #### G IPANEL #### [facility] [address] [place] [address] Dr. Claudia Branch EPEC Not detected Normal NOT DETECTED [facility] Comment on above: Performed By: #### G IPANEL #### [facility] [address] [place] [address] Dr. Claudia Branch ETEC Not detected Normal NOT DETECTED [facility] Comment on above: Performed By: #### G IPANEL #### [facility] [address] [place] [address] Dr. Claudia Branch G. Lamblia Not detected Normal NOT DETECTED [facility] Comment on above: Performed By: #### G IPANEL #### [facility] [address] [address] [address] Claudia ROSE CONTROLS PASSED Normal [facility] Comment on above: Performed By: #### G IPANEL #### [facility] [address] [address] [address] Claudia MCKAY [facility] HEADER GI PANEL BACTERIA Normal [facility] Comment on above: Performed By: #### G IPANEL #### [facility] [address] [address] [address] Claudia RAMIREZ ECOLI GI PANEL DIARRHEAGEN IC E.COLI / SHIGELLA Normal [facility] Comment on above: Performed By: #### G IPANEL #### [facility] [address] [address] [address] Claudia RAMIREZ INFO SEE BELOW Normal [facility] Comment on above: Result Comment: EAEC - Enteroaggregative E. Coli EPEC- Enteropathogenic E. Coli ETEC- Enterotoxigenic E. Coli lt/st STEC- Shigella-like toxin-producing E. Coli stx1/stx2 EIEC- Shigella/Enteroinvasive E. Coli Performed By: #### G IPANEL #### [facility] [address] [place] [address] Dr. Claudia RAMIREZ PARASITES GI PANEL PARASITES Normal [facility] Comment on above: Performed By: #### G IPANEL #### [facility] [address] [address] [address] Claudia RAMIREZ VIRUS GI PANEL VIRUSES Normal [facility] Comment on above: Performed By: #### G IPANEL #### [facility] [address] [address] [address] Claudia Branch Norovirus GI/GII Not detected Normal NOT DETECTED [facility] Comment on above: Performed By: #### G IPANEL #### [facility] [address] [address] [address] Claudia Branch P. Shigelloides Not detected Normal NOT DETECTED [facility] Comment on above: Performed By: #### G IPANEL #### [facility] [address] [place] [address] Dr. Claudia Branch Rotavirus A Not detected Normal NOT DETECTED [facility] Comment on above: Performed By: #### G IPANEL #### [facility] [address] [place] [address] Dr. Claudia Branch Salmonella Not detected Normal NOT DETECTED [facility] Comment on above: Performed By: #### G IPANEL #### [facility] [address] [place] [address] Dr. Claudia Branch Sapovirus Not detected Normal NOT DETECTED [facility] Comment on above: Performed By: #### G IPANEL #### [facility] [address] [place] [address] Dr. Claudia Branch STEC Not detected Normal NOT DETECTED [facility] Comment on above: Performed By: #### G IPANEL #### [facility] [address] [place] [address] Dr. Claudia Branch Vibrio Not detected Normal NOT DETECTED [facility] Comment on above: Performed By: #### G IPANEL #### [facility] [address] [place] [address] Dr. Claudia Branch Vibrio Cholera Not detected Normal NOT DETECTED [facility] Comment on above: Performed By: #### G IPANEL #### [facility] [address] [place] [address] Dr. Claudia Branch Y. Enterocolitica Not detected Normal NOT DETECTED [facility] Comment on above: Performed By: #### G IPANEL #### [facility] [address] [place] [address] Dr. Claudia Branch Albumin [Mass/volume] in Ser um or PlasmaOrdered By: Rose Ohara on 06-29-2022 Albumin [Mass/Vol] 4.1 g/dL 3.2-5.5 [facility] Basophils Auto (Bld) [#/Vol] Ordered By: Rose Ohara on 06-29-2022 Basophils (Bld) [#/Vol] 0.1 10*3/uL 0.0-0.[address] [facility] Basophils/100 WBC Auto (Bld) Ordered By: Rose Ohara on 06-29-2022 Basophils/100 WBC (Bld) 1.2 % . [facility] Blood hemoglobin measurement (mass/volume)Ordered By: Rose Ohara on 06-29-2022 Hemoglobin (Bld) [Mass/Vol] 15.0 g/dL 11.8-15.[address] [facility] Blood leukocytes automated c ount (number/volume)Ordered By: Rose Ohara on 06-29-2022 WBC (Bld) [#/Vol] 8.4 10*3/uL 4.5-11.0 [facility] Creatinine and Glomerular fi ltration rate.predicted panel (S/P/Bld)Ordered By: Rose Ohara on 06-29-2022 Creatinine [Mass/Vol] 0.87 mg/dL 0.44-1.03 [facility] Eosinophils Auto (Bld) [#/Vo l]Ordered By: Rose Ohara on 06-29-2022 Eosinophils (Bld) [#/Vol] 0.3 10*3/uL 0.0-0.[address] [facility] Eosinophils/100 WBC Auto (Bl d)Ordered By: Rose Ohara on 06-29-2022 Eosinophils/100 WBC (Bld) 3.7 % . [facility] Erythrocyte distribution wid th Auto (RBC) [Ratio]Ordered By: Rose Ohara on 06-29-2022 Erythrocyte distribution width (RBC) [Ratio] 14.9 % 11.9-15.[address] [facility] Estimated glomerular filtrat ion rate (GFR) non- AmericanOrdered By: Rose Ohara on 06-29-2022 GFR/1.73 sq M.predicted among non-blacks MDRD (S/P/Bld) [Vol rate/Area] > 60 mL/Min [facility] Globulin Calc (S) [Mass/Vol] Ordered By: Rose Ohara on 06-29-2022 Globulin (S) [Mass/Vol] 3.0 g/dL [facility] Hematocrit Auto (Bld) [Volum e fraction]Ordered By: Rose Ohara on 06-29-2022 Hematocrit (Bld) [Volume fraction] 45.9 % 34.0-46.[address] [facility] - Hematology and Cell countsOrdered By: Rose Ohara on 06-29-2022 Nucleated RBC/100 WBC (Bld) [Ratio] 0.1 % 0-0.[address] [facility] Lactate dehydrogenase measur ement (enzymatic activity/volume)Ordered By: Rose Ohara on 06-29-2022 LDH (Unsp spec) [Catalytic activity/Vol] 131 U/L 45-[address] [facility] Lymphocytes Auto (Bld) [#/Vo l]Ordered By: Rose Ohara on 06-29-2022 Lymphocytes (Bld) [#/Vol] 1.6 10*3/uL 1.00-4.[address] [facility] Lymphocytes/100 WBC Auto (Bl d)Ordered By: Rose Ohara on 06-29-2022 Lymphocytes/100 WBC (Bld) 18.8 % . [facility] MCH Auto (RBC) [Entitic mass ]Ordered By: Rose Ohara on 06-29-2022 MCH (RBC) [Entitic mass] 29.8 pg 24.7-34.[address] [facility] MCHC Auto (RBC) [Mass/Vol]Or dered By: Rose Ohara on 06-29-2022 MCHC (RBC) [Mass/Vol] 32.8 g/dL 32.0-35.0 [facility] MCV Auto (RBC) [Entitic vol] Ordered By: Rose Ohara on 06-29-2022 MCV (RBC) [Entitic vol] 91.0 fL 80-[address] [facility] Monocytes Auto (Bld) [#/Vol] Ordered By: Rose Ohara on 06-29-2022 Monocytes (Bld) [#/Vol] 0.8 10*3/uL 0.0-0.[address] [facility] Monocytes/100 WBC Auto (Bld) Ordered By: Rose Ohara on 06-29-2022 Monocytes/100 WBC (Bld) 9.5 % . [facility] Neutrophils Auto (Bld) [#/Vo l]Ordered By: Rose Ohara on 06-29-2022 Neutrophils (Bld) [#/Vol] 5.6 10*3/uL 1.8-7.[address] [facility] Neutrophils/100 WBC Auto (Bl d)Ordered By: Rose Ohara on 06-29-2022 Neutrophils/100 WBC (Bld) 66.8 % . [facility] No Panel InformationOrdered By: Rose Ohara on 06-29-2022 Estimated GFR () > 60 mL/Min [facility] Comment on above: GFR estimated refere nce range: According to KDOQI guidelines, <60 ml/min/1.73m2 is sufficient to diagnose a patient with chronic kidney disease. Pharmacy Creatinine Clearance (Chem 64.[address] [facility] Platelet mean volume Auto (B ld) [Entitic vol]Ordered By: Rose Ohara on 06-29-2022 Platelet mean volume (Bld) [Entitic vol] 7.9 fL 6.3-10.[address] [facility] Platelets Auto (Bld) [#/Vol] Ordered By: Rose Ohara on 06-29-2022 Platelets (Bld) [#/Vol] 226 10*3/uL 150-[address] [facility] Protein [Mass/volume] in Ser um or PlasmaOrdered By: Rose Ohara on 06-29-2022 Protein [Mass/Vol] 7.1 g/dL 6.1-7.9 [facility] RBC Auto (Bld) [#/Vol]Ordere d By: Rose Ohara on 06-29-2022 RBC (Bld) [#/Vol] 5.04 10*6/uL 3.60-5.00 [facility] Serum or plasma alanine mari otransferase measurement without P-5'-P (enzymatic activiOrdered By: Rose Ohara on 06-29-2022 ALT No additional P-5'-P [Catalytic activity/Vol] 27 U/L 10-[address] [facility] Serum or plasma albumin/glob ulin mass ratioOrdered By: Rose Ohara on 06-29-2022 Albumin/Globulin [Mass ratio] 1.4 {ratio} [facility] Serum or plasma alkaline danial sphatase measurement (enzymatic activity/volume)Ordered By: Rose Ohara on 06-29-2022 ALP [Catalytic activity/Vol] 56 U/L 32-[address] [facility] Serum or plasma aspartate am inotransferase measurement (enzymatic activity/volume)Ordered By: Rose Ohara on 06-29-2022 AST [Catalytic activity/Vol] 26 U/L 10-[address] [facility] Serum or plasma calcium kandi urement (mass/volume)Ordered By: Rose Ohara on 06-29-2022 Calcium [Mass/Vol] 10.2 mg/dL 8.2-10.2 [facility] Serum or plasma chloride florentino surement (moles/volume)Ordered By: Rose Ohara on 06-29-2022 Chloride [Moles/Vol] 102 mmol/L 95-114 [facility] Serum or plasma glucose kandi urement (mass/volume)Ordered By: Rose Ohara on 06-29-2022 Glucose [Mass/Vol] 130 mg/dL 70-100 [facility] Comment on above: ADA recommended refe rence range Random Glucose Reference Range is dependent on time and content of last meal. Glucose of more than 200 mg/dL in a nonstressed, ambulatory subject supports the diagnosis of Diabetes Mellitus. Serum or plasma potassium me asurement (moles/volume)Ordered By: Rose Ohara on 06-29-2022 Potassium [Moles/Vol] 4.9 mmol/L 3.5-5.1 [facility] Serum or plasma sodium measu rement (moles/volume)Ordered By: Rose Ohara on 06-29-2022 Sodium [Moles/Vol] 139 mmol/L 136-146 [facility] Serum or plasma total biliru bin measurement (mass/volume)Ordered By: Rose Ohara on 06-29-2022 Bilirubin [Mass/Vol] 1.2 mg/dL 0.3-1.2 [facility] Serum or plasma total carbon dioxide measurement (moles/volume)Ordered By: Rose Ohara on 06-29-2022 CO2 [Moles/Vol] 24.6 mmol/L 22.0-30.0 [facility] Serum or plasma urea nitroge n measurement (mass/volume)Ordered By: Rose Ohara on 06-29-2022 Urea nitrogen [Mass/Vol] 21 mg/dL 07-[address] [facility] BNPon 04-29-2022 Natriuretic peptide B (Bld) [Mass/Vol] 280.0 pg/mL Normal <=900.0 [facility] Comment on above: Performed By: #### B GANG SAWYER, BMP #### [facility] [address] [address] [address] Claudia Branch PROF CHEM 8 (BAS METB)on Anion gap [Moles/Vol] 17.9 mmol/L Normal [facility] Comment on above: Performed By: #### B GANG SAWYER, BMP #### [facility] [address] [place] [address] Dr. Claudia Branch Calcium [Mass/Vol] 8.9 mg/dL Normal 8.5-10.1 [facility] Comment on above: Performed By: #### B GANG SAWYER, BMP #### [facility] [address] [place] [address] Dr. Claudia Branch Chloride [Moles/Vol] 104 mmol/L Normal 98-107 [facility] Comment on above: Performed By: #### B GANG SAWYER, BMP #### [facility] [address] [place] [address] Dr. Claudia Branch CO2 [Moles/Vol] 23.2 mmol/L Normal 21.0-32.0 [facility] Comment on above: Performed By: #### B GANG SAWYER, BMP #### [facility] [address] [place] [address] Dr. Claudia Branch Creatinine [Mass/Vol] 1.04 mg/dL Critically high 0.55-1.02 [facility] Comment on above: Performed By: #### B GANG SAWYER, BMP #### [facility] [address] [place] [address] Dr. Claudia Branch EGFR-AF ERITREAN >60 Normal >=60 [facility] Comment on above: Performed By: #### B GANG SAWYER, BMP #### [facility] [address] [place] [address] Dr. Claudia Branch EGFR-NON AF ERITREAN 52 mL/min/1.73m2 Critically low >=60 [facility] Comment on above: Performed By: #### B GANG SAWYER, BMP #### [facility] [address] [place] [address] Dr. Claudia Branch Glucose [Mass/Vol] 254 mg/dL Critically high 74-106 [facility] Comment on above: Performed By: #### B GANG SAWYER, BMP #### [facility] [address] [address] [address] Claudia Branch Potassium [Moles/Vol] 5.1 mmol/L Normal 3.5-5.1 [facility] Comment on above: Performed By: #### B GANG SAWYER, BMP #### [facility] [address] [address] [address] Claudia Branch Sodium [Moles/Vol] 140 mmol/L Normal 136-145 [facility] Comment on above: Performed By: #### B GANG SAWYER, BMP #### [facility] [address] [address] [address] Claudia Branch Urea nitrogen [Mass/Vol] 25.0 mg/dL Critically high 7.0-18.0 [facility] Comment on above: Performed By: #### B GANG SAWYER, BMP #### [facility] [address] [place] [address] Dr. Claudia Branch Urea nitrogen/Creatinine [Mass ratio] 24.0 mg/mg Normal [facility] Comment on above: Performed By: #### B GANG SAWYER, BMP #### [facility] [address] [place] [address] Dr. Claudia Branch BASIC METABOLIC PANELon 06-0 Calcium [Mass/Vol] 9.7 mg/dL Normal 8.6-10.4 [facility] Comment on above: Performed By: #### 8 99, [id number] #### [facility] [address] [place] [address] [employer]ist: Baldemar Jones MD Chloride [Moles/Vol] 106 mmol/L Normal 98-110 [facility] Comment on above: Performed By: #### 8 99, [id number] #### [facility] [address] [place] [address] [employer]ist: Baldemar Jones MD CO2 [Moles/Vol] 24 mmol/L Normal 20-32 [facility] Comment on above: Performed By: #### 8 99, [id number] #### [facility] [address] [place] [address] [employer]ist: Baldemar Jones MD Creatinine [Mass/Vol] 1.32 mg/dL High 0.60-0.[address] [facility] Comment on above: Result Comment: For patients >49 years of age, the reference limit for Creatinine is approximately 13% higher for people identified as -[place]er. Performed By: #### 8 99, [id number] #### [facility] [address], [address] [place] [address] [employer]ist: Baldemar Jones MD eGFR NON-AFR. ERITREAN 40 mL/min/1.73m2 Low > OR = 60 [facility] Comment on above: Performed By: #### 8 99, [id number] #### [facility] [address] [place] [address] [employer]ist: Baldemar Jones MD GFR/1.73 sq M.predicted among blacks MDRD (S/P/Bld) [Vol rate/Area] 47 mL/min/{1.73_m2} Low > OR = 60 [facility] Comment on above: Performed By: #### 8 99, [id number] #### [facility] [address] [place] [address] [employer]ist: Baldemar Jones MD Glucose [Mass/Vol] 99 mg/dL Normal 65-99 [facility] Comment on above: Result Comment: Fasting reference interval Performed By: #### 8 99, [id number] #### [facility] [place] [address] [employer]ist: Baldemar Jones MD Potassium [Moles/Vol] 4.6 mmol/L Normal 3.5-5.[address] [facility] Comment on above: Performed By: #### 8 99, [id number] #### [facility] [place] [address] [employer]ist: Baldemar Jones MD Sodium [Moles/Vol] 143 mmol/L Normal 135-146 [facility] Comment on above: Performed By: #### 8 99, 97870 #### [facility] [address] [place] [address] [employer]ist: Baldemar Jones MD Urea nitrogen [Mass/Vol] 30 mg/dL High 7- [facility] Comment on above: Performed By: #### 8 99, [id number] #### [facility] [address], [address] [place] [address] [employer]ist: Baldemar Jones MD Urea nitrogen/Creatinine [Mass ratio] 23 mg/mg High 6- [facility] Comment on above: Performed By: #### 8 99, [id number] #### [facility] [address], [address] [place] [address] [employer]ist: Baldemar Jones MD TSHon 04-09-2022 TSH Qn 0.67 m[IU]/L Normal 0.40-4.50 [facility] Comment on above: Performed By: #### 8 99, 70615 #### [facility] [address], [address] [place] [address] [employer]ist: Baldemar Jones MD Albumin [Mass/volume] in Ser um or PlasmaOrdered By: Rose Ohara on 03-25-2022 Albumin [Mass/Vol] 3.8 g/dL 3.2-5.5 [facility] Basophils Auto (Bld) [#/Vol] Ordered By: Rose Ohara on 03-25-2022 Basophils (Bld) [#/Vol] 0.1 10*3/uL 0.0-0.[address] [facility] Basophils/100 WBC Auto (Bld) Ordered By: Rose Ohara on 03-25-2022 Basophils/100 WBC (Bld) 1.1 % [facility] Blood hemoglobin measurement (mass/volume)Ordered By: Rose Ohara on 03-25-2022 Hemoglobin (Bld) [Mass/Vol] 14.2 g/dL 11.8-15.[address] [facility] Blood leukocytes automated c ount (number/volume)Ordered By: Rose Ohara on 03-25-2022 WBC (Bld) [#/Vol] 7.4 10*3/uL 4.5-11.0 [facility] Creatinine and Glomerular fi ltration rate.predicted panel (S/P/Bld)Ordered By: Rose Ohara on 03-25-2022 Creatinine [Mass/Vol] 1.40 mg/dL 0.44-1.03 [facility] Eosinophils Auto (Bld) [#/Vo l]Ordered By: Rose Ohara on 03-25-2022 Eosinophils (Bld) [#/Vol] 0.2 10*3/uL 0.0-0.[address] [facility] Eosinophils/100 WBC Auto (Bl d)Ordered By: Rose Ohara on 03-25-2022 Eosinophils/100 WBC (Bld) 2.6 % [facility] Erythrocyte distribution wid th Auto (RBC) [Ratio]Ordered By: Rose Ohara on 03-25-2022 Erythrocyte distribution width (RBC) [Ratio] 15.1 % 11.9-15.[address] [facility] Estimated glomerular filtrat ion rate (GFR) non- AmericanOrdered By: Rose Ohara on 03-25-2022 GFR/1.73 sq M.predicted among non-blacks MDRD (S/P/Bld) [Vol rate/Area] 37 mL/Min [facility] Globulin Calc (S) [Mass/Vol] Ordered By: Rose Ohara on 03-25-2022 Globulin (S) [Mass/Vol] 2.5 g/dL [facility] Hematocrit Auto (Bld) [Volum e fraction]Ordered By: Rose Ohara on 03-25-2022 Hematocrit (Bld) [Volume fraction] 43.3 % 34.0-46.[address] [facility] - Hematology and Cell countsOrdered By: Rose Ohara on 03-25-2022 Nucleated RBC/100 WBC (Bld) [Ratio] 0.1 % 0-0.[address] [facility] Lactate dehydrogenase measur ement (enzymatic activity/volume)Ordered By: Rose Ohara on 03-25-2022 LDH (Unsp spec) [Catalytic activity/Vol] 111 U/L 45-[address] [facility] Lymphocytes Auto (Bld) [#/Vo l]Ordered By: Rose Ohara on 03-25-2022 Lymphocytes (Bld) [#/Vol] 1.7 10*3/uL 1.00-4.[address] [facility] Lymphocytes/100 WBC Auto (Bl d)Ordered By: Rose Ohara on 03-25-2022 Lymphocytes/100 WBC (Bld) 22.3 % [facility] MCH Auto (RBC) [Entitic mass ]Ordered By: Rose Ohara on 03-25-2022 MCH (RBC) [Entitic mass] 29.0 pg 24.7-34.[address] [facility] MCHC Auto (RBC) [Mass/Vol]Or dered By: Rose Ohara on 03-25-2022 MCHC (RBC) [Mass/Vol] 32.8 g/dL 32.0-35.0 [facility] MCV Auto (RBC) [Entitic vol] Ordered By: Rose Ohara on 03-25-2022 MCV (RBC) [Entitic vol] 88.3 fL 80-[address] [facility] Monocytes Auto (Bld) [#/Vol] Ordered By: Rose Ohara on 03-25-2022 Monocytes (Bld) [#/Vol] 0.7 10*3/uL 0.0-0.[address] [facility] Monocytes/100 WBC Auto (Bld) Ordered By: Rose Ohara on 03-25-2022 Monocytes/100 WBC (Bld) 9.5 % [facility] Neutrophils Auto (Bld) [#/Vo l]Ordered By: Rose Ohara on 03-25-2022 Neutrophils (Bld) [#/Vol] 4.8 10*3/uL 1.8-7.[address] [facility] Neutrophils/100 WBC Auto (Bl d)Ordered By: Rose Ohara on 03-25-2022 Neutrophils/100 WBC (Bld) 64.5 % [facility] No Panel InformationOrdered By: Rose Ohara on 03-25-2022 Estimated GFR () 45 mL/Min [facility] Comment on above: GFR estimated refere nce range: According to KDOQI guidelines, <60 ml/min/1.73m2 is sufficient to diagnose a patient with chronic kidney disease. Pharmacy Creatinine Clearance (Chem 39.[address] [facility] Platelet mean volume Auto (B ld) [Entitic vol]Ordered By: Rose Ohara on 03-25-2022 Platelet mean volume (Bld) [Entitic vol] 8.2 fL 6.3-10.[address] [facility] Platelets Auto (Bld) [#/Vol] Ordered By: Rose Ohara on 03-25-2022 Platelets (Bld) [#/Vol] 232 10*3/uL 150-[address] [facility] Protein [Mass/volume] in Ser um or PlasmaOrdered By: Rose Ohara on 03-25-2022 Protein [Mass/Vol] 6.3 g/dL 6.1-7.9 [facility] RBC Auto (Bld) [#/Vol]Ordere d By: Rose Ohara on 03-25-2022 RBC (Bld) [#/Vol] 4.90 10*6/uL 3.60-5.00 [facility] Serum or plasma alanine mari otransferase measurement without P-5'-P (enzymatic activiOrdered By: Rose Ohara on 03-25-2022 ALT No additional P-5'-P [Catalytic activity/Vol] 23 U/L 10-[address] [facility] Serum or plasma albumin/glob ulin mass ratioOrdered By: Rose Ohara on 03-25-2022 Albumin/Globulin [Mass ratio] 1.5 {ratio} [facility] Serum or plasma alkaline danial sphatase measurement (enzymatic activity/volume)Ordered By: Rose Ohara on 03-25-2022 ALP [Catalytic activity/Vol] 43 U/L 32-[address] [facility] Serum or plasma aspartate am inotransferase measurement (enzymatic activity/volume)Ordered By: Rose Ohara on 03-25-2022 AST [Catalytic activity/Vol] 18 U/L 10-[address] [facility] Serum or plasma calcium kandi urement (mass/volume)Ordered By: Rose Ohara on 03-25-2022 Calcium [Mass/Vol] 9.7 mg/dL 8.2-10.2 [facility] Serum or plasma chloride florentino surement (moles/volume)Ordered By: Rose Ohara on 03-25-2022 Chloride [Moles/Vol] 98 mmol/L 95-114 [facility] Serum or plasma glucose kandi urement (mass/volume)Ordered By: Rose Ohara on 03-25-2022 Glucose [Mass/Vol] 201 mg/dL 70-100 [facility] Comment on above: ADA recommended refe rence range Random Glucose Reference Range is dependent on time and content of last meal. Glucose of more than 200 mg/dL in a nonstressed, ambulatory subject supports the diagnosis of Diabetes Mellitus. Serum or plasma potassium me asurement (moles/volume)Ordered By: Rose Ohara on 03-25-2022 Potassium [Moles/Vol] 4.7 mmol/L 3.5-5.1 [facility] Serum or plasma sodium measu rement (moles/volume)Ordered By: Rose Ohara on 03-25-2022 Sodium [Moles/Vol] 139 mmol/L 136-146 [facility] Serum or plasma total biliru bin measurement (mass/volume)Ordered By: Rose Ohara on 03-25-2022 Bilirubin [Mass/Vol] 1.2 mg/dL 0.3-1.2 [facility] Serum or plasma total carbon dioxide measurement (moles/volume)Ordered By: Rose Ohara on 03-25-2022 CO2 [Moles/Vol] 27.4 mmol/L 22.0-30.0 [facility] Serum or plasma urea nitroge n measurement (mass/volume)Ordered By: Rose Ohara on 03-25-2022 Urea nitrogen [Mass/Vol] 29 mg/dL 07-[address] [facility] TSH DL <= 0.005 mIU/L QnOrde red By: Rose Ohara on 03-25-2022 TSH Qn 0.89 m[IU]/L 0.45-5.[address] [facility] BASIC METABOLIC PANELon 04-0 BUN/CREATININE RATIO NOT APPLICABLE Normal 6-22 [facility] Comment on above: Order Comment: FASTI NG:YES FASTING: YES Performed By: #### 4 06, [id number] #### [facility] [address] [facility], [address] [place] [address] [employer]ist: Baldemar Jones MD Calcium [Mass/Vol] 9.4 mg/dL Normal 8.6-10.4 [facility] Comment on above: Order Comment: FASTI NG:YES FASTING: YES Performed By: #### 4 26, [id number] #### [facility] [address], [address] [place] [address] [employer] Specialist: Baldemar Jones MD Chloride [Moles/Vol] 101 mmol/L Normal 98-110 [facility] Comment on above: Order Comment: FASTI NG:YES FASTING: YES Performed By: #### 4 96, [id number] #### [facility] [address], [address] [place] [address] [employer] Specialist: Baldemar Jones MD CO2 [Moles/Vol] 31 mmol/L Normal 20-32 [facility] Comment on above: Order Comment: FASTI NG:YES FASTING: YES Performed By: #### 4 96, [id number] #### [facility] [address], [address] [place] [address] [employer] Specialist: Baldemar Jnoes MD Creatinine [Mass/Vol] 0.84 mg/dL Normal 0.60-0.[address] [facility] [address] [facility] Comment on above: Order Comment: FASTI NG:YES FASTING: YES Result Comment: For patients >49 years of age, the reference limit for Creatinine is approximately 13% higher for people identified as -[place]er. Performed By: #### 4 96, [id number] #### [facility] [address], [address] [place] [address] [employer] Specialist: Baldemar Jones MD eGFR NON-AFR. ERITREAN 69 mL/min/1.73m2 Normal > OR = 60 [facility] Comment on above: Order Comment: FASTI NG:YES FASTING: YES Performed By: #### 4 96, [id number] #### [facility] [address], [address] [place] [address] [employer] Specialist: Baldemar Jones MD GFR/1.73 sq M.predicted among blacks MDRD (S/P/Bld) [Vol rate/Area] 80 mL/min/{1.73_m2} Normal > OR = 60 [facility] Comment on above: Order Comment: FASTI NG:YES FASTING: YES Performed By: #### 4 96, [id number] #### [facility] [address], [address] [place], [place] [address] [employer]ist: Baldemar Jones MD Glucose [Mass/Vol] 108 mg/dL High 65-99 [facility] Comment on above: Order Comment: FASTI NG:YES FASTING: YES Result Comment: Fasting reference interval For someone without known diabetes, a glucose value between 100 and 125 mg/dL is consistent with prediabetes and should be confirmed with a follow-up test. Performed By: #### 4 96, [id number] #### [facility] [address], [address] [place] [address] [employer]ist: Baldemar Jones MD Potassium [Moles/Vol] 4.5 mmol/L Normal 3.5-5.[address] [facility] [address] [facility] Comment on above: Order Comment: FASTI NG:YES FASTING: YES Performed By: #### 4 96, [id number] #### [facility] [address], [address] [place] [address] [employer] Specialist: Baldemar Jones MD Sodium [Moles/Vol] 143 mmol/L Normal 135-146 [facility] Comment on above: Order Comment: FASTI NG:YES FASTING: YES Performed By: #### 4 96, [id number] #### [facility] [address], [address] [place] [address] [employer] Specialist: Baldemar Jones MD Urea nitrogen [Mass/Vol] 22 mg/dL Normal 7-25 [facility] Comment on above: Order Comment: FASTI NG:YES FASTING: YES Performed By: #### 4 96, [id number] #### [facility] [place] [address] [employer] Specialist: Baldemar Jones MD HEMOGLOBIN A1con 02-13-2022 HEMOGLOBIN A1c 7.9 % of total Hgb High <5.7 [facility] Comment on above: Result Comment: [...] for children. Performed By: #### 4 96, [id number] #### [facility] [address], [address] [place] [id number] [employer]ist: Baldemar Jones MD No Panel InformationOrdered By: Bang Nunez on 01-09-2022 Adrenocorticotropic Hormone 39.5 pg/mL 7.2-63.[address] [facility] Comment on above: ACTH reference inter bernarda for samples collected between 7 and 10 AM. Performed at: [facility] [id number] Pre Billing Clinician: Braxton Austin PhD, Phone: [phone] ACTH reference inter bernarda for samples collected between 7 and10 AM.Performed at: [facility] [id number] Director: Braxton Austin PhD, Phone: [phone] Thyroxine (T4) free [Mass/vo lume] in Serum or PlasmaOrdered By: Bang Nunez on 01-09-2022 Free T4 [Mass/Vol] 0.81 ng/dL 0.61-1.12 [facility] B TYPE NATRIURETIC PEPTIDE ( BNP)on 12-03-2021 Natriuretic peptide B (Bld) [Mass/Vol] 67 pg/mL Normal <100 [facility] Comment on above: Result Comment: BNP levels increase with age in the general population with the highest values seen in individuals greater than 75 years of age. Reference: J. Am. Jim. Cardiol. 2002; 40:976-982. Performed By: #### 3 7386, 70802 #### [facility] [address], [address] [place] [phone] [employer] Design Specialist: Baldemar Jones MD BASIC METABOLIC PANELon 11-08 Calcium [Mass/Vol] 9.4 mg/dL Normal 8.6-10.4 [facility] Comment on above: Order Comment: FASTI NG:NO FASTING: NO Performed By: #### 3 3386, 06268 #### [facility] [address] , [address] [place] [address] [employer] Design Specialist: Baldemar Jones MD Chloride [Moles/Vol] 99 mmol/L Normal 98-110 [facility] Comment on above: Order Comment: FASTI NG:NO FASTING: NO Performed By: #### 3 7386, 11428 #### [facility] [address], [address] [place] [address] [employer]ing Design Specialist: Baldemar Jones MD CO2 [Moles/Vol] 32 mmol/L Normal 20-32 [facility] Comment on above: Order Comment: FASTI NG:NO FASTING: NO Performed By: #### 3 7386, 99563 #### [facility] [address], [address] [place] [address] [employer]ing Design Specialist: Baldemar Jones MD Creatinine [Mass/Vol] 0.90 mg/dL Normal 0.60-0.[address] [facility] [address] [facility] Comment on above: Order Comment: FASTI NG:NO FASTING: NO Result Comment: For patients >49 years of age, the reference limit for Creatinine is approximately 13% higher for people identified as -H[place] Konger. Performed By: #### 3 7386, 00217 #### [facility] [address], [address] [place] [address] [employer]ing Design Specialist: Baldemar Jones MD eGFR NON-AFR. ERITREAN 64 mL/min/1.73m2 Normal > OR = 60 [facility] Comment on above: Order Comment: FASTI NG:NO FASTING: NO Performed By: #### 3 7386, 07382 #### [facility] [address], [address] [place] [address] [employer]ing Design Specialist: Baldemar Jones MD GFR/1.73 sq M.predicted among blacks MDRD (S/P/Bld) [Vol rate/Area] 75 mL/min/{1.73_m2} Normal > OR = 60 [facility] Comment on above: Order Comment: FASTI NG:NO FASTING: NO Performed By: #### 3 7386, 08547 #### [facility] [address], [address] [place] [address] [employer] Design Specialist: Baldemar Jones MD Glucose [Mass/Vol] 174 mg/dL High 65-139 [facility] Comment on above: Order Comment: FASTI NG:NO FASTING: NO Result Comment: Non-fasting reference interval For someone without known diabetes, a glucose value >125 mg/dL indicates that they may have diabetes and this should be confirmed with a follow-up test. Performed By: #### 3 7386, 50337 #### [facility] [address], [address] [place] [address] [employer]ing Design Specialist: Baldemar Jones MD Potassium [Moles/Vol] 3.7 mmol/L Normal 3.5-5.3 [facility] Comment on above: Order Comment: FASTI NG:NO FASTING: NO Performed By: #### 3 7386, 82166 #### [facility] [place] [address] [employer] Design Specialist: Baldemar Jones MD Sodium [Moles/Vol] 143 mmol/L Normal 135-146 [facility] Comment on above: Order Comment: FASTI NG:NO FASTING: NO Performed By: #### 3 7386, 32490 #### [facility] [place] [address] [employer] Design Specialist: Baldemar Jones MD Urea nitrogen [Mass/Vol] 35 mg/dL High 7-25 [facility] Comment on above: Order Comment: FASTI NG:NO FASTING: NO Performed By: #### 3 7386, 71090 #### [facility] [place] [address] [employer] Design Specialist: Baldemar Jones MD Urea nitrogen/Creatinine [Mass ratio] 39 mg/mg High 6-22 [facility] Comment on above: Order Comment: FASTI NG:NO FASTING: NO Performed By: #### 3 7386, 33711 #### [facility] [place] [address] [employer]ing Design Specialist: Baldemar Jones MD ALBUMIN, RANDOM URINE W/CREA [facility] 10-02-2021 ALBUMIN, URINE 0.9 mg/dL Normal See Note: [facility] Comment on above: Result Comment: Refe rence Range: Reference Range Not established Performed By: #### 7 600, 6517, 15086 #### [facility] [place] [address] [employer] Design Specialist: Baldemar Jones MD ALBUMIN/CREATININE RATIO, RANDOM URINE [...] category. Performed By: #### 7 600, 6517, 31050 #### [facility] [place] [address] [employer] Design Specialist: Baldemar Jones MD Creatinine (U) [Mass/Vol] 69 mg/dL Normal 20-275 [facility] Comment on above: Performed By: #### 7 600, 6517, 39593 #### [facility] [place] [address] [employer] Design Specialist: Baldemar Jones MD [facility] 10-02-2021 Albumin [Mass/Vol] 4.4 g/dL Normal 3.6-5.1 [facility] Comment on above: Performed By: #### 7 600, 65, 18313 #### [facility] [place] [address] [employer] Design Specialist: Baldemar Jones MD Albumin/Globulin [Mass ratio] 1.7 {ratio} Normal 1.0-2.5 [facility] Comment on above: Performed By: #### 7 600, 6517, 68775 #### [facility] [place] [address] [employer] Design Specialist: Baldemar Jones MD ALP [Catalytic activity/Vol] 50 U/L Normal 37-153 [facility] Comment on above: Performed By: #### 7 600, 6517, 76862 #### [facility] of [address], [address] [place] [address] Piping Design Specialist: Baldemar Jones MD ALT [Catalytic activity/Vol] 15 U/L Normal 6-29 [facility] Comment on above: Performed By: #### 7 600, 6517, 36271 #### [facility] of [address], [address] [place] [address] [employer]iping Design Specialist: Baldemar Jones MD AST [Catalytic activity/Vol] 15 U/L Normal 10-35 [facility] Comment on above: Performed By: #### 7 600, 6517, 42597 #### [facility] of [address], [address] [place] [address] [employer]iping Design Specialist: Baldemar Jones MD Bilirubin [Mass/Vol] 1.2 mg/dL Normal 0.2-1.2 [facility] Comment on above: Performed By: #### 7 600, 65, 64254 #### [facility] of [place] [address] [employer] Design Specialist: Baldemar Jones MD BUN/CREATININE RATIO NOT APPLICABLE Normal 6-22 [facility] Comment on above: Performed By: #### 7 600, 6517, 65564 #### [facility] of [place] [address] [employer] Design Specialist: Baldemar Jones MD Calcium [Mass/Vol] 9.6 mg/dL Normal 8.6-10.4 [facility] Comment on above: Performed By: #### 7 600, 6517, 13490 #### [facility] of [place] [address] [employer] Design Specialist: Baldemar Jones MD Chloride [Moles/Vol] 103 mmol/L Normal 98-110 [facility] Comment on above: Performed By: #### 7 600, 6517, 69609 #### [facility] of [place] [address] [employer] Design Specialist: Baldemar Jones MD CO2 [Moles/Vol] 27 mmol/L Normal 20-32 [facility] Comment on above: Performed By: #### 7 600, 6517, 25691 #### [facility] [address], [address] [place] [address] [employer]iping Design Specialist: Baldemar Jones MD Creatinine [Mass/Vol] 0.81 mg/dL Normal 0.60-0.[address] [facility] [address] [facility] Comment on above: Result Comment: For patients >49 years of age, the reference limit for Creatinine is approximately 13% higher for people identified as -H[place] Konger. Performed By: #### 7 600, 6517, 70327 #### [facility] [address], [address] [place] [address] [employer]iping Design Specialist: Baldemar Jones MD eGFR NON-AFR. ERITREAN 73 mL/min/1.73m2 Normal > OR = 60 [facility] Comment on above: Performed By: #### 7 600, 65, 07722 #### [facility] [address], [address] [place] [address] [employer]iping Design Specialist: Baldemar Jones MD GFR/1.73 sq M.predicted among blacks MDRD (S/P/Bld) [Vol rate/Area] 85 mL/min/{1.73_m2} Normal > OR = 60 [facility] Comment on above: Performed By: #### 7 600, 6517, 69633 #### [facility] [address], [address] [place] [address] Piping Design Specialist: Baldemar Jones MD Globulin (S) [Mass/Vol] 2.6 g/dL Normal 1.9-3.7 [facility] Comment on above: Performed By: #### 7 600, 6517, 88408 #### [facility] [address], [address] [place] [address] Piping Design Specialist: Baldemar Jones MD Glucose [Mass/Vol] 109 mg/dL High 65- [facility] Comment on above: Result Comment: Fasting reference interval For someone without known diabetes, a glucose value between 100 and 125 mg/dL is consistent with prediabetes and should be confirmed with a follow-up test. Performed By: #### 7 600, 65, 12021 #### [facility] of [address], [address] [place] [address] [employer]iping Design Specialist: Baldemar Jones MD Potassium [Moles/Vol] 4.1 mmol/L Normal 3.5-5.[address] [facility] [address] [facility] Comment on above: Performed By: #### 7 600, 6517, 87222 #### [facility] of [address], [address] [place] [address] [employer]iping Design Specialist: Baldemar Jones MD Protein [Mass/Vol] 7.0 g/dL Normal 6.1-8.1 [facility] Comment on above: Performed By: #### 7 600, 6517, 69201 #### [facility] of [place] [address] [employer] Design Specialist: Baldemar Jones MD Sodium [Moles/Vol] 143 mmol/L Normal 135-146 [facility] Comment on above: Performed By: #### 7 600, 6517, 91913 #### [facility] of [place] [address] [employer] Design Specialist: Baldemar Jones MD Urea nitrogen [Mass/Vol] 19 mg/dL Normal 7-25 [facility] Comment on above: Performed By: #### 7 600, 6517, 73934 #### [facility] of [place] [address] [employer] Design Specialist: Baldemar Jones MD LIPID PANEL, [facility] 09-08 Cholesterol [Mass/Vol] 106 mg/dL Normal <200 [facility] Comment on above: Order Comment: FASTI NG:YES FASTING: YES Performed By: #### 7 600, 6517, 80345 #### [facility] of [place] [address] [employer] Design Specialist: Baldemar Jones MD Cholesterol in HDL [Mass/Vol] 44 mg/dL Low > OR = 50 [facility] Comment on above: Order Comment: FASTI NG:YES FASTING: YES Performed By: #### 7 600, 6517, 27957 #### [facility] [place] [address] [employer] Design Specialist: Baldemar Jones MD Cholesterol in LDL [Mass/Vol] [...] LDL-C. Theo SS et al. KEZIA. 2013;310(19): 9826-0887 (http://education.[employer] Kar[employer]/faq/MOU629) Performed By: #### 7 600, 6517, 36478 #### [facility] [place] [address] [employer]ing Design Specialist: Baldemar Jones MD Cholesterol.total/Chol esterol in HDL [Mass ratio] 2.4 {ratio} Normal <5.0 [facility] Comment on above: Order Comment: FASTI NG:YES FASTING: YES Performed By: #### 7 600, 0607, 32717 #### [facility] [place] [address] [employer]ing Design Specialist: Baldemar Jones MD NON HDL CHOLESTEROL 62 mg/dL (calc) Normal <130 [facility] Comment on above: Order Comment: FASTI NG:YES FASTING: YES Result Comment: For patients with diabetes plus 1 major ASCVD risk factor, treating to a non-HDL-C goal of <100 mg/dL (LDL-C of <70 mg/dL) is considered a therapeutic option. Performed By: #### 7 600, 6517, 44486 #### [facility] [place] [address] [employer]ing Design Specialist: Baldemar Jones MD Triglyceride [Mass/Vol] 185 mg/dL High <150 [facility] Comment on above: Order Comment: FASTI NG:YES FASTING: YES Performed By: #### 7 600, 9774, 65779 #### [facility] [address], [address] [place] [address] [employer]iping Design Specialist: Baldemar Jones MD Laboratory - Chemistry and C hemistry - challengeOrdered By: Rose Ohara on 08-17-2021 Lipase [Catalytic activity/Vol] 27.0 U/L 22-[address] [facility] Random cortisol measurementO rdered By: Rose Ohara on 08-17-2021 Cortisol [Mass/Vol] 10.1 ug/dL [facility] Comment on above: Reference range: AM 6 - 24 ug/dl PM <10 ug/dl Reference range: AM 6 - 24 ug/dl PM <10 ug/dl Creatinine (Bld) [Mass/Vol]O rdered By: Bang Nunez on 06-19-2021 Creatinine [Mass/Vol] 0.6 mg/dL 0.6-1.3 [facility] Comment on above: ER/ESD physician is notified/shown all ISTAT results. Critical values may be confirmed by laboratory testing if deemed necessary by ER attending doctor. ER/ESD physician is notified/shown all ISTAT results.Critical values may be confirmed by laboratory testing ifdeemed necessary by ER attending doctor. No Panel InformationOrdered By: Bang Nunez on 06-19-2021 POC Estimated GFR > [address] [facility] Comment on above: GFR estimated refere nce range: According to KDOQI guidelines, <60 ml/min/1.73m2 is sufficient to diagnose a patient with chronic kidney disease. POC Estimated GFR Non- Amer > [address] [facility] Glucose Glucometer (BldC) [M ass/Vol]Ordered By: Bang Nunez on 06-17-2021 Glucose [Mass/Vol] 124 mg/dL [facility] Comment on above: Random Glucose Refer ence Range is dependent on time and content of last meal. Glucose of more than 200 mg/dL in a nonstressed, ambulatory subject supports the diagnosis of Diabetes Mellitus. COVID-19 Positive/Negativeon 02-13-2021 SARS-CoV-2 (COVID-19) N gene KIP+probe Ql (Resp) Negative Negative [facility] Comment on above: Reference: Negative Testing for SARS-CoV-2 by RT-PCR This test was developed and its performance characteristics determined by [employer] ([employer]) and validated at the [facility]. This test has not been FDA [...] developed and its performance characteristics determined by [employer] ([employer]) and validated at the [facility]. This test has not been FDA [...] (COVID-19) RNA KIP+probe Ql (Unsp spec) N/A [facility] No Panel Informationon 12-22 Bedside Glucose Comment Glu2: cleaned meter [facility] Dermatopathologyon Dermatopathology [facility] Dermatopathology Laboratory [address] [place] [id number] DERMATOPATHOLOGY REPORT Name:TOSHA MCNEAL. Rec #. [id number] Location: Date of Procedure: 11/28/2020 Race: Date [...] control slides stain appropriately. The prior biopsy [id number] was received and reviewed. The morphology is [...] determined by the Department of Pathology at [facility]. The FDA does not require this [...] A: Non sentinal lymph node. Excision. B: [place] Lymph node count 1005. (Hospital Outpatient) Specimens Submitted As: A: NODE, RIGHT AXILLARY NON-SENTINEL LYMPH NODE B: NODE, RIGHT AXILLARY SENTINEL LYMPH NODE COUNT 1005 Gross Description: A: Received in formalin is a ackerman-yellow irregularly shaped piece of tissue measuring [id number]. The specimen is inked and embedded in toto. B: Received in formalin is one ackerman-yellow irregularly shaped piece of tissue measuring [id number]. The specimen is inked and embedded in toto in three blocks. ink/12/01/2020 Microscopic Description: A. Microscopic examination reveals a lymph node with normal architecture. No melanoma is seen on H and E staining. Melan-A, SOX-10, and HMB45 stains are unremarkable. All control slides stain appropriately. Normal [facility] Comment on above: Performed By: #### D #### Dermatopathology GLUCOSE-POCTon 11-28-2020 Glucose [Mass/Vol] 136 mg/dL High 74 - 99 [facility] Comment on above: Performed By: #### G WAYNE #### [facility] [address] [place] [address] Glucose [Mass/Vol] 135 mg/dL High 74 - 99 [facility] Work Phone: Comment on above: Performed By: #### G WAYNE #### [facility] [id number] [place] [id number] History and Physical - Surge ry > 30 dayson 11-28-2020 History and Physical - Surgery > 30 days History of Present Illness: History Present Illness: Reason for surgery: melanoma 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 COMPARISON: None. ACCESSION NUMBER(S): [id number] ORDERING CLINICIAN: CEDRICK BERGER TECHNIQUE: DIVISION OF [...] lymph node localization to the right axilla. [employer] Agent images were sent to PACS. I personally reviewed the images/study and I agree with the findings as stated. This study was interpreted at [facility], [place], [place]. Electronically signed by: RICKI SALGADO MD [facility] Patient Profile - Adult v2on 11-28-2020 Patient Profile - Adult v2 This report has been cancelled. Normal [facility] Patient Profile - Preop v2on 11-28-2020 Patient Profile - Preop v2 Profile: Initial Info: How to be AddressedSUZANNE(1) Spoken Language PreferredEnglish (1) Source of Informationpatient Are you currently using the Personal Electronic Health Record or [facility] Stated Reason for Admissioninjection in my lymph nodes Primary Contact Name and Numberharry-spouse Limitations on Visitors/Phone Callsonly spouse may visit Patient Belongingsremains with patient; patient educated regarding responsibility for personal items Patient Belongings Remaining with Patientclothing; vision aids; dental appliance Medications Brought to Hospitalno General Health: Weight in kg94.2 kilogram(s) Weight in xsz310.6 pound(s) Weight Methodactual (measured) Scale Typechair Height [...] Arrangementshouse Lives Withspouse Resource/Environmental Concernsnone Anticipated Transition [facility] Anticipated at Transitionnone Substance: Current or [...] instruction; written material Cultural Considerationsnone Developmental Considerationsnone Methodist Considerationsnone Other learner availableno [place] RiskPatient location auto qualifies him/her for HIGH RISK. Are there any cultural, spiritual, alevism practices/values/needs that are important for us to [...] Profile - Adult v2 28-Nov-2020 07:19 Normal [facility] Preop Checkliston 11-28-2020 Preop Checklist Preop Checklist: Preop Checklist: Arrival [id number] Arrival Time07:00 Procedure Typeinjection of right arm excision scar Heart Rate65 beats per minute Respiratory Rate16 breath per minute Blood Pressure Ixzxoeso908 mm/Hg Blood Pressure Vkkssslfp59 mm/Hg NPO [id number] 10:30 ID Band Onyes Allergy Bandno known [...] Language / CommunicationEnglish Electronic Signatures: Evelin Lovett (RN) (Signed 28-Nov-2020 07:26) Authored: Preop Checklist Last Updated: 28-Nov-2020 07:26 by Evelin Lovett (RN) Normal [facility] CORONAVIRUS 2019, SCREEN ASY MPTOMATICon 11-26-2020 SARS-CoV-2 (COVID-19) RNA KIP+probe Ql (Unsp spec) Not detected Normal Not Detected [facility] Comment on above: Result Comment: [...] patient management decisions. Fact sheet for providers: https://www.fda.gov/media/300107/download Fact sheet for patients: https://www.fda.gov/media/803919/download This test has received FDA Emergency Use Authorization (EUA) and has been verified by [facility] ([facility]). This test is only authorized for the duration of time that circumstances exist to justify the authorization of the emergency use of in vitro diagnostic tests for the detection of SARS-CoV-2 virus and/or diagnosis of COVID-19 infection under section 564(b)(1) of the Act, 21 U.S.C. 360bbb-3(b)(1), unless the authorization is terminated or revoked sooner. [facility] is certified under CLIA-88 as qualified to perform high complexity testing. Testing is performed in the [facility] laboratories located at [address] [place] [address]. Performed By: #### C OVSC #### [place] [address] Lab Specimen Source Nasal, Nasopharyngeal Normal [facility] Comment on above: Performed By: #### C OVSC #### [address] [place] [address] Coronavirus 2019 RNA by PCR, Screening Asymptomticon 11-26-2020 Coronavirus 2019 RNA by PCR, Screening Asymptomtic NOT DETECTED See Below [facility] Work Phone: Comment on above: SOURCE: [...] make patient management decisions.Fact sheet for providers: https://www.fda.gov/media/076974/downloadFact sheet for patients: https://www.fda.gov/media/384689/downloadThis test has received FDA Emergency Use Authorization (EUA) and has been verified by [facility] ([facility]). This test is only authorized for the duration of time that circumstances exist to justify the authorization of the emergency use of in vitro diagnostic tests for the detection of SARS-CoV-2 virus and/or diagnosis of COVID-19 infection under section 564(b)(1) of the Act, 21 U.S.C. 360bbb-3(b)(1), unless the authorization is terminated or revoked sooner. [facility] is certified under CLIA-88 as qualified to perform high complexity testing. Testing is performed in the [facility] laboratories located at [address] [place] [address]. Covid 19 Resultson 1 SARS-CoV-2 (COVID-19) RNA [...] You may also be contacted by the [facility] to see if any of your [...] or Naproxen (Aleve) can also be used. Slno-fpf-qtvqzcq cough and cold medicines can be used according to the instructions on the package. Some xvma-mxu-lciigqj medicines also contain acetaminophen. Make sure you [...] water are not available, use alcohol-based hand single corner cutter. Avoid touching your eyes, nose, and mouth [...] ibuprofen (Motrin) (more content not included)... Normal [facility] BASIC METABOLIC PANELon 11-07 Anion gap [Moles/Vol] 15 mmol/L Normal 10 - 20 [facility] Comment on above: Performed By: #### B MP #### [address] [address] Calcium [Mass/Vol] 9.7 mg/dL Normal 8.6 - 10.3 [facility] Comment on above: Performed By: #### B MP #### [address] [address] Chloride [Moles/Vol] 99 mmol/L Normal 98 - 107 [facility] Comment on above: Performed By: #### B MP #### [address] [address] Creatinine [Mass/Vol] 0.64 mg/dL Normal 0.50 - 1.05 [facility] Comment on above: Performed By: #### B MP #### [address] [address] GFR- AM. >60 Normal >60 [facility] Comment on above: Result Comment: CALC ULATIONS OF ESTIMATED GFR ARE PERFORMED USING THE MDRD STUDY EQUATION FOR THE IDMS-TRACEABLE CREATININE METHODS. CLIN CHEM 2007;53:766-72 Performed By: #### B MP #### [address] [address] GFR-NON AM. >60 Normal >60 [facility] Comment on above: Performed By: #### B MP #### [address] [address] Glucose [Mass/Vol] 105 mg/dL High 74 - 99 [facility] Comment on above: Performed By: #### B MP #### [address] [address] HCO3 (Bld) [Moles/Vol] 30 mmol/L Normal 21 - 32 [facility] Comment on above: Performed By: #### B MP #### [address] [address] Potassium [Moles/Vol] 3.7 mmol/L Normal 3.5 - 5.3 [facility] Comment on above: Performed By: #### B MP #### [facility] [address] [place] [address] Sodium [Moles/Vol] 140 mmol/L Normal 136 - 145 [facility] Comment on above: Performed By: #### B MP #### [place] [id number] [place] [address] Urea nitrogen [Mass/Vol] 18 mg/dL Normal 6 - 23 [facility] Comment on above: Performed By: #### B MP #### [address] [place] [address] Metabolic Panelon 11-21-2020 Anion gap [Moles/Vol] 15 mmol/L 10 - 20 [facility]S [facility] Work Phone: Comment on above: Ordering Provider: Daniela Hernandez19 Calcium [Mass/Vol] 9.7 mg/dL 8.6 - 10.3 [facility] Work Phone: Comment on above: Ordering Provider: Daniela REBOLLEDO [address] Chloride [Moles/Vol] 99 mmol/L 98 - 107 [facility] Work Phone: Comment on above: Ordering Provider: Daniela REBOLLEDO [address] CO2 [Moles/Vol] 30 mmol/L 21 - 32 [facility] yS [facility] Work Phone: Comment on above: Ordering Provider: Daniela REBOLLEDO [address] Creatinine [Mass/Vol] 0.64 mg/dL See Below [facility] SurgeryS [facility] Work Phone: Comment on above: Reference Range: 0.5 0 - 1.05 Ordering Provider: Daniela REBOLLEDO [address] Glucose [Mass/Vol] 105 mg/dL above high threshold 74 - 99 [facility] Work Phone: Comment on above: Ordering Provider: Daniela REBOLLEDO [address] Potassium [Moles/Vol] 3.7 mmol/L 3.5 - 5.3 [facility] Work Phone: 51 Comment on above: Ordering Provider: Daniela REBOLLEDO [address] Sodium [Moles/Vol] 140 mmol/L 136 - 145 [facility] cinda-[facility] [place] [facility] Work Phone: [phone] Comment on above: Ordering Provider: Daniela REBOLLEDO [id number] Urea nitrogen [Mass/Vol] 18 mg/dL 6 - 23 JW-Rlgbhwt-I [facility] Work Phone: [phone] Comment on above: Ordering Provider: Daniela REBOLLEDO [id number] Otheron 11-21-2020 >60 >60 LE-Alxgibu-G [facility] Work Phone: [phone] Comment on above: CALCULATIONS OF ASHA MATED GFR ARE PERFORMED USING THE MDRD STUDY EQUATION FOR THE IDMS-TRACEABLE CREATININE METHODS. CLIN CHEM 2007;53:766-72 Ordering Provider: Daniela REBOLLEDO [id number] [phone] VQ-Faslcin-Q [facility] Work Phone: [phone] PJ-Dmenpbj-H [facility] Work Phone: 51 Sinus rhythm with 1s t degree AV block AU-Ngtjgjp-Z [facility] Work Phone: [phone] [email or web address] ?RetrieveTestByDateTime?P [email or web address]=[id number]&Date=03-07-2021&Time=11%3a49%3a 35%3a00&TestType=ECG&Site =12&OutputType=PDF&Ext=PD F JY-Adeyigu-T [facility] Work Phone: [phone] QB-Pywysdw-N [facility] Work Phone: [phone] KS-Bigppky-N [facility] Work Phone: [phone] PK-Xnutzxs-K [facility] Work Phone: [phone] UE-Rrxliym-F [facility] Work Phone: [phone] TE-Mxyicpk-K [facility] Work Phone: [phone] TA-Adupcjt-H [facility] Work Phone: [phone] LB-Dnqofxr-S [facility] Work Phone: [phone] SW-Rxyklgt-L [facility] Work Phone: [phone] [facility] [phone] HP-Krvoohl-E [facility] Work Phone: [phone] DB-Hbxrhbn-B [facility] Work Phone: Abnormal [facility] Work Phone: Initial Visit (General Surge ry)on [...] be. We will plan for surgery at [facility] after the new year. Preadmission testing will [...] visit. Right arm melanoma History of Present Wsfkyiy31-adgz-yhu woman referred to me by Dr. Nunez [...] history never smoker, , lives in the [facility] Medications include Ocuvite eyedrops, alendronate, amlodipine, carvedilol, [...] Facility 01-11-2024 10:39-0500 Body height 152.4 cm [facility] Phone: [employer] 01-11-2024 10:39-0500 Body mass index (BMI) [Ratio] 41.81 kg/m2 [facility] Phone: [employer] 01-11-2024 10:39-0500 Body temperature 98.2 [degF] [facility] Phone: [employer] 01-11-2024 10:39-0500 Body weight 97.11 kg [facility] 01-11-2024 10:39-0500 Diastolic blood pressure 78 mm[Hg] [facility] 01-11-2024 10:39-0500 Heart rate 65 /min Wild Furlong DO Work Phone: [facility] [employer] [facility] 01-11-2024 10:39-0500 SaO2% (BldA) [Mass fraction] 92 % Wild Furlong DO Work Phone: [facility] [employer] 01-11-2024 10:39-0500 Systolic blood pressure 130 mm[Hg] Wild Furlong DO Work Phone: [facility] [employer] 12-23-2023 09:37-0500 Body height 152.4 cm Wild Furlong DO Work Phone: [facility] [employer] 12-23-2023 09:37-0500 Body mass index (BMI) [Ratio] 41.46 kg/m2 Wild Furlong DO Work Phone: [facility] [employer] 12-23-2023 09:37-0500 Body temperature 98.49 [degF] Wild Furlong DO Work Phone: [facility] [employer] [facility] 12-23-2023 09:37-0500 Body weight 96.3 kg Wild Furlong DO Work Phone: [facility] [employer] 12-23-2023 09:37-0500 Diastolic blood pressure 50 mm[Hg] Wild Furlong DO Work Phone: [facility] [employer] 12-23-2023 09:37-0500 Heart rate 65 /min Wild Furlong DO Work Phone: [facility] [employer] 12-23-2023 09:37-0500 SaO2% (BldA) [Mass fraction] 95 % Wild Furlong DO Work Phone: [facility] [employer] 12-23-2023 09:37-0500 Systolic blood pressure 140 mm[Hg] Wild Furlong DO Work Phone: [facility] [employer] [facility] 12-15-2023 10:17-0500 Body height 152.4 cm DO Wild Furlong Work Phone: [facility] 12-15-2023 10:17-0500 Body mass index (BMI) [Ratio] 41 kg/m2 DO Wild Furlong Work Phone: [facility] 12-15-2023 10:17-0500 Body temperature 97.3 [degF] DO Wild Furlong Work Phone: [facility] 12-15-2023 10:17-0500 Body weight 95.25 kg DO Wild Furlong Work Phone: [facility] 12-15-2023 10:17-0500 Diastolic blood pressure 73 mm[Hg] DO Wild Furlong Work Phone: [facility] 12-15-2023 10:17-0500 Heart rate 55 /min DO Wild Furlong Work Phone: [facility] 12-15-2023 10:17-0500 Respiratory rate 16 /min DO Wild Furlong Work Phone: [facility] 12-15-2023 10:17-0500 Systolic blood pressure 150 mm[Hg] DO Wild Furlong Work Phone: [facility] 08-11-2023 10:23-0400 Body temperature 97.2 [degF] DO Wild Furlong Work Phone: [facility] 08-11-2023 10:23-0400 Body weight 99.79 kg DO Wild Furlong Work Phone: [facility] 08-11-2023 10:23-0400 Diastolic blood pressure 77 mm[Hg] DO Wild Furlong Work Phone: [facility] 08-11-2023 10:23-0400 Heart rate 56 /min DO Wild Furlong Work Phone: [facility] 08-11-2023 10:23-0400 Respiratory rate 16 /min DO Wild Furlong Work Phone: [facility] 08-11-2023 10:23-0400 SaO2% (BldA) [Mass fraction] 95 % DO Wild Furlong Work Phone: [facility] 08-11-2023 10:23-0400 Systolic blood pressure 155 mm[Hg] DO Wild Furlong Work Phone: [facility] 04-13-2023 09:19-0400 Body temperature 97.9 [degF] DO Wild Furlong Work Phone: [facility] 04-13-2023 09:19-0400 Body weight 99.33 kg DO Wild Furlong Work Phone: [facility] 04-13-2023 09:19-0400 Diastolic blood pressure 67 mm[Hg] DO Wild Furlong Work Phone: [facility] 04-13-2023 09:19-0400 Heart rate 64 /min DO Wild Furlong Work Phone: [facility] 04-13-2023 09:19-0400 Respiratory rate 16 /min DO Wild Furlong Work Phone: [facility] 04-13-2023 09:19-0400 SaO2% (BldA) [Mass fraction] 97 % DO Wild Furlong Work Phone: [facility] 04-13-2023 09:19-0400 Systolic blood pressure 148 mm[Hg] DO Wild Furlong Work Phone: [facility] 09-23-2022 08:25-0500 Body temperature 97.8 [degF] DO Wild Furlong Work Phone: [facility] 09-23-2022 08:25-0500 Body weight 99.9 kg DO Wild Furlong Work Phone: [facility] 09-23-2022 08:25-0500 Diastolic blood pressure 66 mm[Hg] DO Wild Furlong Work Phone: [facility] 09-23-2022 08:25-0500 Heart rate 68 /min DO Wild Furlong Work Phone: [facility] 09-23-2022 08:25-0500 Respiratory rate 16 /min DO Wild Furlong Work Phone: [facility] 09-23-2022 08:25-0500 SaO2% (BldA) [Mass fraction] 94 % DO Wild Furlong Work Phone: [facility] 09-23-2022 08:25-0500 Systolic blood pressure 153 mm[Hg] DO Wild Furlong Work Phone: [facility] 07-01-2022 10:32-0400 Body temperature 97.8 [degF] DO Wild Furlong Work Phone: [facility] 07-01-2022 10:32-0400 Body weight 99.33 kg DO Wild Furlong Work Phone: [facility] 07-01-2022 10:32-0400 Diastolic blood pressure 75 mm[Hg] DO Wild Furlong Work Phone: [facility] 07-01-2022 10:32-0400 Heart rate 55 /min DO Wild Furlong Work Phone: [facility] 07-01-2022 10:32-0400 Respiratory rate 16 /min DO Wild Furlong Work Phone: [facility] 07-01-2022 10:32-0400 SaO2% (BldA) [Mass fraction] 98 % DO Wild Furlong Work Phone: [facility] 07-01-2022 10:32-0400 Systolic blood pressure 154 mm[Hg] DO Wild Furlong Work Phone: [facility] 03-31-2022 13:24-0400 Body temperature 97 [degF] DO [employer] Work Phone: [facility] 03-31-2022 13:24-0400 Body weight 98.42 kg DO Wild [employer] Work Phone: [facility] 03-31-2022 13:24-0400 Diastolic blood pressure 74 mm[Hg] DO [employer] Work Phone: [facility] 03-31-2022 13:24-0400 Heart rate 62 /min DO [employer] Work Phone: [facility] 03-31-2022 13:24-0400 Respiratory rate 16 /min DO [employer] Work Phone: [facility] 03-31-2022 13:24-0400 SaO2% (BldA) [Mass fraction] 96 % DO [employer] Work Phone: [facility] 03-31-2022 13:24-0400 Systolic blood pressure 150 mm[Hg] DO [employer] Work Phone: [facility] 10-01-2020 10:47-0500 Body height 157.99 cm DO [employer] Work Phone: [facility] 1950 00:00-0500 >na< Obdulio Flowers Dept. of Adriano matology Encounters Encounter Date Encounter Type Care Provider Facility Start: 08-16-2024 End: 08-16-2024 ambulatory [facility] Start: 07-16-2024 End: 07-16-2024 ambulatory [facility] Start: 07-16-2024 End: 07-16-2024 ambulatory [facility] Start: 06-22-2024 End: 06-22-2024 ambulatory [facility] Start: 06-07-2024 End: 06-07-2024 ambulatory [facility] Start: 05-18-2024 End: 05-18-[address] [facility] Start: 03-23-2024 End: 03-23-2024 ambulatory [facility] Start: 03-20-2024 End: 03-20-2024 ambulatory [facility] Start: 02-02-2024 Refill Irene Schrader FLORAL MERCHANDISER-CHEMICAL TEST ENGINEER Work Phone: [facility] Start: 01-15-2024 Orders Only Wild Hernandez ng DO Work Phone: [facility] Start: 01-11-2024 End: 01-11-2024 ambulatory [facility] Start: 01-11-2024 End: 01-11-2024 Office outpatient visit 25 minutes iWld Centeno DO Work Phone: [facility] Comment on above: Type 2 diabetes deepak itus with stage 3a chronic kidney disease, with long-term current use of insulin ([facility]) (Primary Dx); Gout, unspecified cause, unspecified chronicity, unspecified site; Mixed hyperlipidemia; Morbid obesity ([facility]); 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 Start: 12-30-2023 End: 12-30-2023 ambulatory [facility] Start: 12-28-2023 End: 12-29-2023 ambulatory IRMA CORTEZ Not Available Start: 12-26-2023 End: 12-26-2023 ambulatory IRMA CORTEZ Not Available Start: 12-26-2023 Refill Wild Hernandez ng DO Work Phone: [facility] Start: 12-23-2023 End: 12-23-2023 Office outpatient visit 15 minutes Wild Centeno DO Work Phone: [facility] Comment on above: Acute gout due to re nal impairment involving toe of right foot (Primary Dx); 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 ([facility]) Start: 12-23-2023 End: 12-23-2023 ambulatory WILD CENTENO [facility] Start: 12-21-2023 End: 12-22-2023 ambulatory IRMA CORTEZ Not Available Start: 12-21-2023 End: 12-21-2023 Admission to same day surgery center Irma Cortez VACATION GUIDE [facility] Comment on above: Aftercare following left knee joint replacement surgery (Primary Dx); Acute pain of left knee; Stiffness of left knee; Primary osteoarthritis of left knee Start: 12-21-2023 End: 12-21-2023 ambulatory Irma Cortez VACATION GUIDE [facility] Start: 12-21-2023 Bamboo flowsheet Irma Cortez VACATION GUIDE [facility] Start: 12-21-2023 Bamboo flowsheet Irma Cortez VACATION GUIDE [facility] Start: 12-19-2023 End: 12-19-2023 Admission to same day surgery center Shan Clements VACATION GUIDE [facility] Comment on above: Aftercare following left knee joint replacement surgery (Primary Dx); Acute pain of left knee; Stiffness of left knee; Primary osteoarthritis of left knee Start: 12-19-2023 End: 12-20-2023 ambulatory Shan Clements VACATION GUIDE [facility] Start: 12-19-2023 Bamboo flowsheet Shan Clements PT A [facility] Start: 12-19-2023 Bamboo flowsheet Shan Clements PT A [facility] Start: 12-15-2023 End: 12-15-2023 Patient encounter procedure DO Wild Centeno Work Phone: [facility] Work Phone: Start: 12-15-2023 End: 12-15-2023 ambulatory DO Wild Furlong Work Phone: [facility] Work Phone: Start: 12-15-2023 Registered Recurring DO Wild Furlong Work Phone: [facility] Work Phone: Start: 12-14-2023 End: 12-14-2023 ambulatory IRMA CORTEZ Not Available Start: 12-14-2023 End: 12-14-2023 Admission to same day surgery center Irma Cortez VACATION GUIDE [facility] Comment on above: Aftercare following left knee joint replacement surgery (Primary Dx); Acute pain of left knee; Stiffness of left knee; Primary osteoarthritis of left knee Start: 12-14-2023 End: 12-14-2023 ambulatory Irma Cortez VACATION GUIDE [facility] Start: 12-14-2023 Bamboo flowsheet Irma Cortez VACATION GUIDE [facility] Start: 12-14-2023 Bamboo flowsheet Irma Cortez VACATION GUIDE [facility] Start: 12-13-2023 End: 12-13-2023 ambulatory Wild Furlong Facility:[facility] Start: 12-13-2023 Registered Recurring DO Wild Furlong [facility] Work [facility]: Start: 12-13-2023 End: 12-13-2023 ambulatory DO Wild Furlong Work Phone: [facility] Work Phone: Start: 12-13-2023 End: 12-13-2023 Patient encounter procedure DO Wild Furlong Work Phone: [facility] [place] Work Phone: Start: 2023 End: 2023 ambulatory IRMA BYERSY Not Available Start: 12-07-2023 End: 12-08-2023 ambulatory IRMA BYERSY Not Available Start: 12-05-2023 End: 12-05-2023 ambulatory IRMA KELBLEY Not Available Start: 12-02-2023 End: 12-02-[address] [facility] Start: 12-02-2023 End: 12-02-2023 ambulatory IRMA KELBLEY Not Available Start: 11-30-2023 End: 11-30-2023 ambulatory IRMA KELBLEY Not Available Start: 11-25-2023 End: 11-25-2023 ambulatory IRMA KELBLEY Not Available Start: 11-23-2023 End: 11-23-2023 ambulatory IRMA KELBLEY Not Available Start: 11-21-2023 End: 11-21-2023 ambulatory IRMA KELBLEY Not Available Start: 11-09-2023 End: 11-09-2023 ambulatory Aly Higgins MD Facility:[facility] Start: 11-08-2023 End: 11-08-2023 ambulatory IRMA KELBLEY Not Available Start: 11-04-2023 End: 11-04-2023 ambulatory IRMA KELBLEY Not Available Start: 11-02-2023 End: 11-02-2023 ambulatory IRMA KELBLEY Not Available Start: 11-01-2023 End: 11-02-2023 ambulatory IRMA KELBLEY Not Available Start: 10-28-2023 End: 10-28-2023 ambulatory VIRGINIA BRINK Not Available Start: 10-26-2023 End: 10-26-2023 ambulatory VIRGINIA BRINK Not Available Start: 10-24-2023 End: 10-24-2023 ambulatory AMAN LOPEZTON Not Available Start: 10-03-2023 End: 10-04-2023 ambulatory [facility] Start: 09-26-2023 End: 09-26-2023 ambulatory AMAN Daniela BLACKSTON Not Available Start: 09-08-2023 End: 09-13-2023 ambulatory ALY [facility] Start: 08-29-2023 ambulatory [facility] Start: 08-29-2023 Encounter for other preprocedural examination [facility] Start: 08-11-2023 End: 08-11-2023 ambulatory DO Wild Furlong Work Phone: [facility] Work Phone: Start: 08-11-2023 End: 08-11-2023 Registered Recurring DO Wild Furlong Work Phone: [facility] Work Phone: Start: 04-13-2023 End: 04-13-2023 ambulatory DO Wild Furlong Work Phone: [facility] Work Phone: Start: 04-13-2023 End: 04-13-2023 Registered Recurring DO Wild Furlong [facility] Work [facility]: Start: 03-03-2023 End: 03-04-2023 ambulatory WILD G FURLONG Facility:[facility] Start: 09-23-2022 End: 09-23-2022 ambulatory DO Wild Furlong Work Phone: [facility] Work Phone: Start: 09-23-2022 End: 09-23-2022 Registered Recurring DO Wild Furlong [facility] Start: 08-26-2022 End: 08-27-2022 ambulatory WILD G FURLONG Facility:[facility] Start: 08-11-2022 End: 08-12-2022 ambulatory WILD G FURLONG Facility:[facility] Start: 07-01-2022 End: 07-01-2022 Registered Recurring DO Wild Furlong [facility] Start: 04-29-2022 End: 04-30-2022 ambulatory BRENDAD NAHEEDDEREKTHANI Facility:[facility] Start: 03-31-2022 End: 03-31-2022 Registered Recurring DO Wild Furlong Work [facility] Start: 12-16-2020 [facility] Procedures Date Procedure Procedure Detail Performing Clinician Start: 06-22-2024 Follow-up visit Follow-up ROBERT LONG Start: 01-11-2024 Adult depression scr eening assessment Wild Furlong DO Work Phone: Start: 12-23-2023 Adult depression scr eening assessment Wild Furlong DO Work Phone: Start: 12-13-2023 Computed tomography of abdomen and pelvis with contrast DO [employer] Work Phone: Start: 12-13-2023 CT of thorax with contrast DO Wild [employer] Work Phone: Start: 12-13-2023 Ultrasonography of limb DO [employer] Work Phone: Start: 09-01-2023 Diabetic retinal eye exam [employer] DO Work Phone: Start: 08-09-2023 Ultrasonography of limb DO [employer] Work Phone: Start: 05-13-2023 Mammography Irma Ke andrewley VACATION GUIDE Start: 04-07-2023 Ultrasonography of limb DO [employer] Work Phone: Start: 03-14-2023 Microalbumin [Mass/v olume] in Urine by Test strip [employer] DO Work Phone: Start: 12-21-2022 Computed tomography of abdomen and pelvis with contrast DO Wild [employer] Work Phone: Start: 12-21-2022 CT of thorax with contrast DO [employer] Work Phone: Start: 09-21-2022 Ultrasonography of limb DO [employer] Work Phone: Start: 06-29-2022 Computed tomography of abdomen and pelvis with contrast DO [employer] Work Phone: Start: 06-29-2022 CT of thorax with contrast DO [employer] Work Phone: Start: 03-29-2022 Ultrasonography of limb DO [employer] Work Phone: Start: 12-28-2021 Computed tomography of abdomen and pelvis with contrast DO [employer] Work Phone: Start: 12-28-2021 CT of thorax with contrast DO [employer] Work Phone: Start: 09-24-2021 Ultrasonography of limb DO [employer] Work Phone: Start: 06-19-2021 MRI of head DO [employer] Work Phone: Start: 06-17-2021 Positron emission to mography with computed tomography DO [employer] Work Phone: Start: 03-27-2021 Ultrasound procedure on topographic region DO [employer] Work Phone: Start: 12-16-2020 Obdulio Flowers Cataract surgery Wild Fur elena Ligation of fallopian tube D josette Furlong Repair of musculoten dinous cuff of shoulder [employer] Plan of Treatment Date Care Activity Detail Author Start: 03-25-2026 Screening for malign ant neoplasm of colon [facility] Start: 01-10-2025 Adult BMI Screening Adult BMI Screen ing [facility] Start: 01-10-2025 Depression Screening Depression Scre ening [facility] Start: 01-10-2025 Fall Risk Screening Fall Risk Screen ing [facility] Start: 01-10-2025 Tobacco Screening Tobacco Screening [facility] Start: 12-23-2024 Adult BMI Screening Adult BMI Screen ing [facility] Start: 12-23-2024 Depression Screening Depression Scre ening [facility] Start: 12-23-2024 Fall Risk Screening Fall Risk Screen ing [facility] Start: 12-23-2024 Tobacco Screening Tobacco Screening [facility] Start: 09-12-2024 Adult BMI Screening Adult BMI Screen ing [facility] Start: 09-12-2024 Depression Screening Depression Scre ening [facility] Start: 09-12-2024 Tobacco Screening Tobacco Screening [facility] Start: 09-01-2024 Glaucoma screening Diabetic Op hthalmology Exam [facility] Start: 07-16-2024 End: 07-16-2024 Patient encounter procedure 07/16/2024 8:30 AM EDT Office Visit [facility] [address] [place] [address] Wlid Centeno, [address], [place] [address] [facility] Internal Medicine Family [facility] Start: 07-12-2024 Fall Risk Screening Fall Risk Screen ing [facility] Start: 05-13-2024 Screening for malign ant neoplasm of breast Mammogram [facility] Start: 03-20-2024 End: 03-20-2024 Patient encounter procedure 03/20/2024 11:10 AM EDT Office Visit [facility] [address] [place] [address] [facility] Internal [facility] Start: 03-14-2024 Diabetic foot examination Diabetic Foot Exam [facility] Start: 03-14-2024 Urine screening for protein Urine Microalbumin [facility] Start: 03-10-2024 Medicare Annual Well ness Visit Medicare Annual Wellness Visit [facility] Start: 01-11-2024 End: 01-11-2024 Patient encounter procedure 01/11/2024 10:50 AM EST Office Visit [facility] [address] [place] [address] Wild Centeno DO [address] [place] [address] [facility] Start: 12-28-2023 End: 12-28-2023 ambulatory 12/28/2023 2:30 PM EST Treatment [facility] [address] [place] [id number] Irma Cortez, VACATION GUIDE [facility] Start: 12-26-2023 End: 12-26-2023 ambulatory 12/26/2023 2:30 PM EST Treatment [facility] [address] [place] [address] Tahir Irma, VACATION GUIDE [facility] Start: 12-21-2023 End: 12-21-2023 ambulatory 12/21/2023 2:30 PM EST Treatment [facility] [address] [place] [address] Janeykim Irma, VACATION GUIDE [facility] Start: 12-19-2023 End: 12-19-2023 ambulatory [facility] Comment on above: Arrived Start: 12-14-2023 End: 12-14-2023 ambulatory 12/14/2023 2:30 PM EST Treatment [facility] [address] [facility] [address] [place] [address] Irma Cortez, VACATION GUIDE Arrived [facility] Comment on above: Arrived Start: 07-08-2023 COVID-19 Vaccine ( season) COVID-19 Vaccine ( season) [facility] Start: 09-18-2022 DTaP,Tdap and Td Vaccines (2 - Td or Tdap) DTaP,Tdap and Td Vaccines (2 - Td or Tdap) [facility] Start: 12-08-[address] [facility] Start: 10-06-[address] [facility] Start: 07-15-2021 End: 07-15-[address] [facility] Start: 07-10-[address] [facility] Start: 06-29-[address] [facility] Start: 03-09-2013 Administration of varicella zoster vaccine Zoster (Shingles) Vaccine (1 of 2) [facility] Start: 1968 Adult BMI Follow Up Plan Adult BMI Follow Up Plan [facility] Start: 1950 Screening for malign ant neoplasm of colon [facility] Comprehensive metabo lic 1999 panel - Serum or Plasma [facility] Work Phone: Comprehensive metabo lic 1999 panel - Serum or Plasma [facility] Comprehensive metabo lic 1999 panel - Serum or Plasma [facility] Comprehensive metabo lic 1999 panel - Serum or Plasma [facility] Comprehensive metabo lic 1999 panel - Serum or Plasma [facility] CT Abdomen and Pelvi s W contrast IV [facility] CT Abdomen and Pelvi s W contrast IV [facility] CT Abdomen and Pelvi s W contrast IV [facility] CT Chest W contrast IV [facility] CT Chest W contrast IV [facility] CT Chest W contrast IV [facility] Lactate dehydrogenas e [Enzymatic activity/volume] in Unspecified specimen [facility] Work Phone: Lactate dehydrogenas e [Enzymatic activity/volume] in Unspecified specimen [facility] US Extremity [facility] Work Phone: US Extremity [facility] US Extremity [facility] Immunizations Immunization Date Immunization Notes Care Provider Fa [facility] 09-12-2023 Influenza Vaccine, Quadrivalent, Adjuvanted Wild Furlong DO Work Phone: [facility] 10-08-2022 Influenza, High-dose , Quadrivalent Wild Furlong DO Work Phone: [facility] 10-12-2020 influenza, injectabl e, quadrivalent, contains preservative Wild Furlong DO Work Phone: [facility] 09-03-2019 Influenza, injectabl e, Madin Madison Canine Kidney, quadrivalent with preservative Wild Furlong DO Work Phone: [facility] 10-24-2017 Influenza, injectabl e, Madin Soraida Canine Kidney, preservative free, quadrivalent Wild Furlong DO Work Phone: [facility] 10-24-2017 pneumococcal polysaccharide vaccine, 23 valent Wild Furlong DO Work Phone: [facility] 09-05-2016 influenza, seasonal, injectable, preservative free Wild Furlong DO Work Phone: [facility] 08-05-2016 pneumococcal conjuga te vaccine, 13 valent Wild Furlong DO Work Phone: [facility] 09-07-2015 influenza, seasonal, injectable, preservative free Wild Furlong DO Work Phone: [facility] 01-12-2013 varicella virus vaccine Denn is Furlong DO Work Phone: [facility] 01-12-2013 zoster vaccine, unspecified formulation Wild Furlong DO Work Phone: [facility] 09-18-2012 tetanus toxoid, redu bret diphtheria toxoid, and acellular pertussis vaccine, adsorbed Wild Furlong DO Work Phone: [facility] 1950 pneumococcal conjuga te vaccine, 7 valent 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 Payers Date Payer Category Payer Self-pay [id number] 2018 Unknown 2014 Medicare 1960 Medicare [id number] 1959 Unknown [id number] 1950 Unknown [id number] 2.16.84 0.1.859735.3.579.2.593 1949 Unknown [id number] 2.16.84 0.1.310880.3.579.2.593 1949 Unknown [id number] 2.16.84 0.1.012337.3.579.2.593 1949 Unknown [id number] 2.16.84 0.1.204606.3.579.2.593 1949 Unknown [id number] 2.16.8 40.1.744869.3.579.2.173 1949 Unknown [id number] 2.16.8 40.1.407204.3.579.2.173 1949 Unknown [id number] 2.16. 840.1.724406.3.579.2.196 1949 Unknown [id number] 2.16.84 0.1.704316.3.579.2.1259 1949 Unknown [id number] 2.16.84 0.1.416329.3.579.2.1259 1949 Unknown [id number] 2.16.84 0.1.685587.3.579.2.1259 1949 Unknown [id number] 2.16.84 0.1.265758.3.579.2.1259 1949 Unknown [id number] 2.16.84 0.1.789192.3.579.2.1259 1949 Unknown [id number] 2.16.84 0.1.832526.3.579.2.1259 1949 Unknown [id number] 2.16.84 0.1.029573.3.579.2.1259 1949 Unknown [id number] 2.16.84 0.1.661626.3.579.2.1259 1949 Unknown [id number] 2.16.84 0.1.630998.3.579.2.1259 1949 Unknown [id number] 2.16.84 0.1.781486.3.579.2.1259 1949 Unknown [id number] 2.16.84 0.1.076765.3.579.2.1259 1949 Unknown [id number] 2.16.84 0.1.050130.3.579.2.1259 1949 Unknown [id number] 2.16.84 0.1.902591.3.579.2.1259 1949 Unknown [id number] 2.16.840 .1.901348.3.579.2.1259 1949 Unknown [id number] 2.16.840 .1.388242.3.579.2.1259 1949 Unknown [id number] 2.16.840 .1.049073.3.579.2.1259 1949 Unknown [id number] 2.16.840 .1.404237.3.579.2.1259 1949 Unknown [id number] 2.16.840 .1.951060.3.579.2.1259 1949 Unknown [id number] 2.16.840 .1.891729.3.579.2.1259 1949 Unknown [id number] 2.16.840 .1.791355.3.579.2.1259 1949 Unknown [id number] 2.16.840 .1.869777.3.579.2.1259 1949 Unknown [id number] 2.16.8 40.1.346365.3.579.2.6 1949 Unknown [id number] 2.16.8 40.1.120467.3.579.2.1286 1949 Unknown [id number] 2.16.8 40.1.410835.3.579.2.128 1949 Unknown [id number] 2.16.8 40.1.983379.3.579.2.1286 1949 Unknown [id number] 2.16.8 40.1.215179.3.579.2.1285 1949 Unknown [id number] 2.16.8 40.1.192082.3.579.2.128 1949 Unknown [id number] 2.16.8 40.1.696766.3.579.2.128 1949 Unknown [id number] 2.16.8 40.1.813888.3.579.2.1286 Unknown [facility] [id number] Unknown [id number] 2.16.8 40.1.753231.3.579.2.531 Unknown [id number] 2.16.8 40.1.295957.3.579.2.531 Social History Date Type Detail Facility Assertion Tobacco smoking consumption unknown (finding) [facility] Start: 12-16-2020 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 Start: 1950 Sex Assigned At Female [facility] Start: 03-31-2022 End: 09-06-2022 Tobacco smoking status NHIS Never smoked tobacco (finding) [facility] Start: 09-06-2022 End: 11-04-2023 Tobacco use and exposure Smokeless tobacco non-user [facility] Start: 11-04-2023 End: 01-11-2024 Alcohol intake Ex-drinker (finding) [facility] Start: 12-18-2020 End: 11-04-2023 History of Social function [facility] Start: 12-18-2020 End: 11-04-2023 Tobacco use panel [facility] Start: 11-04-2023 Alcohol Comment Caffeine: 1-2 cups/day [facility] Start: 1950 Sex Assigned At Not on file [facility] Do you belong to any clubs or organizations such as pentecostal groups, unions, fraternal or athletic groups, or school groups? Yes [facility] Are you now , , , , never or living with a partner? [facility] How often to you hav e a drink containing alcohol? Never [facility] How many standard dr inks containing alcohol do you have on a typical day? Patient does not drink [facility] Do you feel stress - tense, restless, nervous, or anxious, or unable to sleep at night because your mind is troubled all the time - these days [OSQ] Not at all [facility] Medical Equipment Procedure Code [...] Elena Plus test strips TEST once daily [id number] Goals Date Patient Goal Desired Activity /State Functional Status Date Assessment Result Facility NEGATED: Highlighted row Functional performance Functional status health issues are not documented Disease [facility] Work Phone: Mental Status Date Assessment Result Facility NEGATED: Highlighted row Cognitive function [Interpretation] Cognitive status health issues are not documented Disease [facility] Work Phone: Clinical Notes 10-01-2020 to 06-22-2024 Wild Centeno, DO - 01/11/2024 11:00 AM Malissa Centeno, DO - 12/23/2023 9:40 AM EST Note Date & Type Note Facility 06-22-2024 Note [facility] CARDIOLOGY PROGR ESS NOTE HPI: Tosha Mcneal is a 73 y.o. female here for leg swelling and increased SOB with exertion HPI 73 yo female presents for follow up HFpEF, hypertension, and hyperlipidemia. Appointment, patient complained of some increased lower extremity edema and shortness of breath following the discontinuation of her spironolactone. Her Lasix was increased to twice daily dosing for 3 days. She presents today for follow-up. She states that she feels significantly improved. Her lower extremity edema has resolved. Her shortness of breath has resolved. She denies any cardiac complaints or concerns. She denies any chest pain or shortness of breath. She denies any lower extremity edema, orthopnea, or paroxysmal nocturnal dyspnea. No new complaints or concerns. Cardiology ROS: 10 point ROS is performed and is negative unless otherwise specified in HPI. Visit Vitals BP 136/62 (BP Location: Right arm, Patient Position: Sitting, BP Cuff Size: Adult) Pulse 59 Resp 16 Ht 1.524 m (5') Wt 98.4 kg (217 lb) SpO2 92% BMI 42.38 kg/m??? Smoking Status Never BSA 2.04 m??? Allergies Allergen Reactions Jardiance [Empagliflozin] Rash Medications: Current Outpatient Medications on File Prior to Visit Medication Sig Dispense Refill allopurinol (Zyloprim) 100 mg tablet take 1 tablet by mouth IN THE MORNING ( START after FLARE UP RESOLVES ) amLODIPine (Norvasc) 5 mg tablet Take 1 tablet by mouth in the morning. aspirin 81 mg chewable tablet in the morning. carvedilol (Coreg) 25 mg tablet Take 25 mg by mouth in the morning and at bedtime. ergocalciferol (Vitamin D-2) 1.25 MG (38330 Units) capsule Take 1 capsule by mouth 1 (one) time per week. furosemide (Lasix) 40 mg tablet Take 1 tablet (40 mg) by mouth in the morning. 90 tablet 3 insulin NPH and regular [...] 1 tablet by mouth once daily furosemide (Lasix) 40 mg tablet Take 1 tablet (40 mg) by mouth if needed in the morning and at bedtime (take for next 2-3 days as needed for increased water retention and leg swelling). 30 tablet 11 [DISCONTINUED] baclofen (Lioresal) 10 mg tablet 10 mg if needed in the morning, at noon, and at bedtime. No current facility-administered medications on file prior [...] back: Normal range of motion. Right lower le-2+ edema. Left lower le-2+ edema. Skin: General: Skin is warm and dry. Capillary Refill: Capillary refill takes less than 2 seconds. Neurological: General: No focal deficit present. Mental Status: She is alert and oriented to person, place, and time. Psychiatric: Mood and Affect: Mood normal. Behavior: Behavior normal. Thought Content: Thought content normal. Judgment: Judgment normal. Labs: 04/27/24 K+ improved and renal function stable 04/09/24 12/30/23 12/13/23 Last lab values have been reviewed CV Testin04/17/24 TTE reviewed with pt 12/20/23 TTE 11/26/2021 TTE Assessment/Plan: Mixed hyperlipidemia Continue crestor Hypertension Blood pressure is well-controlled at home per patient. Continue amlodipine 5 mg daily, carvedilol 25 mg twice daily, lisinopril 40 mg daily. Patient instructed to check daily blood pressure at home 2 hours after taking medication. Patient is instructed to maintain daily blood pressure log. Patient is to contact cardiology if blood pressures above discuss target range. Patient voices understanding. Dyspnea on exertion Resolved Diastolic dysfunction Euvolemic at this time. she voiced understanding of fluid restriction, NA restriction, daily weights and red flag symptoms of when to call office Continue diuretics as prescribed -Optimize medical management (more content not included)... [facility] 05-18-2024 Note Currently fluid over loaded and will increase diuretic x next 2-3 days to lasix 40 mg po bid, repeat BMP in 2 weeks to assess renal function and electrolytes/K+ and she voiced understanding of fluid restriction, NA restriction, daily weights and red flag symptoms of when to call office [facility] 05-18-2024 Note Fluid overloaded on exam today will increased lasix x next 2-[address] [facility] 05-18-2024 Note Hypertension is stable [facility] 05-18-2024 Note Hypertension is unch anged. States b/p at home is always < 130/80 Continue current medications. Blood pressure will be reassessed at the next regular appointment. [facility] 05-18-2024 Note Lipid abnormalities are unchanged. Pharmacotherapy as ordered. Continue crestor [facility] 05-18-2024 Note Patient here c/o SOB w/ exertion and LE edema s/p stopping spironolactone due to hyperkalemia. Last labs were done on 04/27/2024. She hasn't taken potassium in 2 years she says. Currently taking lasix 40mg daily. Denies chest pain, palpitations, and lightheaded/syncope. Review of Systems Cardiovascular: Positive for leg swelling. Musculoskeletal: Positive for arthritis and joint pain. All other systems reviewed and are negative. [facility] 05-18-2024 Note [facility] CARDIOLOGY PROGR ESS NOTE HPI: Tosha Mcneal is a 73 y.o. female here for leg swelling and increased SOB with exertion HPI 73 yo female presents for follow up HFpEF, hypertension, and hyperlipidemia. Patient here c/o SOB w/ exertion and LE edema s/p stopping spironolactone due to hyperkalemia. Last labs were done on 04/27/2024. She hasn't taken potassium in 2 years she says. Currently taking lasix 40mg daily. Denies chest pain, palpitations, and lightheaded/syncope. Was on vacation and I didn't take enough medications because we stayed a few extra days, and I noticed increased leg swelling and water retention. Review of Systems Cardiovascular: Positive for leg swelling. Musculoskeletal: Positive for arthritis and joint pain. All other systems reviewed and are negative. Visit Vitals BP 148/58 (BP Location: Left arm, Patient Position: Sitting) Pulse 60 Ht 1.524 m (5') Wt 99.8 kg (220 lb) SpO2 95% BMI 42.97 kg/m??? Smoking Status Never BSA 2.06 m??? Allergies Allergen Reactions Jardiance [Empagliflozin] Rash Medications: Current Outpatient Medications on File Prior [...] mouth in the morning and at bedtime. ergocalciferol (Vitamin D-2) 1.25 MG (86667 Units) capsule Take 1 capsule by mouth 1 (one) time per week. furosemide (Lasix) 40 mg tablet Take 1 tablet (40 mg) by mouth in the morning. 90 tablet 3 insulin NPH and regular [...] 1 tablet by mouth once daily [DISCONTINUED] furosemide (Lasix) 20 mg tablet furosemide 20 mg tablet take 1 tablet by mouth once daily (Patient not taking: Reported on 05/18/2024) 90 tablet 3 [DISCONTINUED] potassium chloride CR (Klor-Con M10) 10 mEq ER tablet Take 1 tablet (10 mEq) by mouth in the morning. Do not crush or chew. (Patient not taking: Reported on 05/18/2024) 90 tablet 3 [DISCONTINUED] spironolactone (Aldactone) 25 mg tablet Take 25 [...] back: Normal range of motion. Right lower le-2+ edema. Left lower le-2+ edema. Skin: General: Skin is warm and dry. Capillary Refill: Capillary refill takes less than 2 seconds. Neurological: General: No focal deficit present. Mental Status: She is alert and oriented to person, place, and time. Psychiatric: Mood and Affect: Mood normal. Behavior: Behavior normal. Thought Content: Thought content normal. Judgment: Judgment normal. Labs: 04/27/24 K+ improved and renal function stable 04/09/24 12/30/23 12/13/23 Last lab values have been reviewed CV Testin04/17/24 TTE reviewed with pt 12/20/23 TTE 11/26/2021 TTE Assessment/Plan: Mixed hyperlipidemia Lipid abnormalities are unchanged. Pharmacotherapy as ordered. Continue crestor 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 (CMS/HCC) Hypertension is unchanged. States b/p at home is always < 130/80 Continue current medications. Blood pressure will be reassessed at the next regular appointment. Essential hypertension Hypertension is stable Dyspnea on exertion Fluid overloaded on exam today will increased lasix x next 2-3 days Diastolic dysfunction Currently fluid overloaded and will increase diuretic x next 2-3 days to lasi (more content not included)... [facility] 03-23-2024 Note AYLEEN Yee CARDIOL NOELLE PROGRESS NOTE HPI: Tosha Mcneal is a [...] or sooner as needed Robert Long MD [facility] 01-11-2024 History of Present illness Narrative [...] disease, with long-term current use of insulin ([facility]) - Comprehensive metabolic panel; Future - Hemoglobin A1c; Future - Magnesium; Future - Parathyroid Hormone, intact; Future - Phosphorus; Future - Vitamin D 25 hydroxy; Future Check A1c and CKD labs Gout, unspecified cause, unspecified chronicity, unspecified site - Uric acid; Future Check uric acid Mixed hyperlipidemia - Lipid panel; Future eck lipid panel Morbid obesity ([facility]) She is obese. It is contributing to DM HTN and high cholesterol . She would benefit from wt loss. 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 ([facility]) F/U with specialists as dir. documented in this encounter [facility] 12-30-2023 Note [facility] CARDIOLOGY PROGR ESS NOTE [...] or sooner as needed Robert Long MD [facility] 12-30-2023 Note Patient here for fol [...] deny chest pain, SOB, palpitations, and lightheadedness/syncope. [facility] 12-23-2023 History of Present illness Narrative [...] over time. She should stay on it long-term. 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 ([facility]) GFR reviewed and is stable at 55. No dosing adjustments required. Other orders - allopurinoL (ZYLOPRIM) 100 mg tablet; Take 1 tablet (100 mg total) by mouth in the morning. Start after flare up resolves. documented in this encounter [facility] 12-23-2023 Evaluation note Diagnosis Acute gout due to renal impairment involving toe of right foot- Primary 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 ([facility]) documented in this encounter [facility]01-26-2024 NoteContinue lasix 20 mg daily, stop norvasc, [facility] NoteDOE and BLE edema will order echocardiogram to assess cardiac function, diastolic function and valvular function RTC after echo completedUnTrinity [facility]01-26-2024 Note Hypertension is controlled and hypotensive despite not taking lisinopril 40 mg the last 2 days. Asked pt to stop norvasc and to hold lisinopril if SBP < 100 and she voiced understandingUnTrinity Health System [facility]01-26-2024 Note Continue crestor 10 mg dailyUnTrinity Health [facility]01-26-2024 Note [facility] CARDIOLOGY PROGRESS NOTE HPI: Tosha [...] lasix 20 mg daily, stop norvasc, repeat echocardiogramUnTrinity [facility]01-26-2024 NotePatient here for 3 mo follow up [...] pain. All other systems reviewed and are negative.[facility] 08-29-2023 NoteCardiology Clinic Note Subjective Tosha [...] mild unilateral left lower (more content not included)...[facility]10-23-2023 NotePatient here for surgery clearance prior to TKA. Doing well from cardiac standpoint, as she denies chest pain, SOB, and palpitations. Her LLE edema is no more than usual she states. Review of Systems Cardiovascular: Positive for leg swelling (LLE, intermittent). Musculoskeletal: Positive for arthritis and joint pain. All other systems reviewed and are negative.[facility] 04-13-2023 Progress note Author Rose Ohara [facility] April 13, 2023 5:59pm Note Date/Time April 13, 2023 9:30a m [facility] [place] [id number] Hem/Onc Follow Up Note - OP Signed Patient: Tosha Mcneal MR#: [id number] : 1950 Acct:[id number] Age/Sex: 72 / F Type: REG RCR [...] She is leaving for a cruise to [place] this month. Continue 4 month followup with [...] related toxicities. Now following with dermatology at [facility] with no recurrence on skin exam. Surveillance [...] proceeded with wide local excision 09/05/2020 at [facility]. Outside review at [facility] showed at least 2.1 cm Breslow depth melanoma with 2 cm negative margins. She was referred to Dr. Cedrick Berger at [facility]. Right axillary sentinel lymph node biopsy performed [...] liver lesion. Her case was presented at [facility] cutaneous tumor board on 1prior to her metastatic staging. Discussion of referral to medical oncology fordiscussion of immunotherapy. The patient is now returning for medical oncology follow-up after review of all prior pathology and imaging. BRAF status is stillpending. She has healed well. She is a 10-year history of diabetes. She resides in [facility]. Today we reviewed immunotherapy counseling for [...] Therapies: 1. Initial wide local excision at [facility] 09/05/[address] Hernando Mccartney 2. Right sentinel lymph node biopsy 11/28/2020 at [facility] by Dr. Cedrick Berger 3. Delay of [...] % (Auto) 62.3, Lymph % (Auto) 26.0, [place] % (Auto) 8.6, Eos % (Auto) 2.2, Baso % (Auto) 0.9, Nucleat RBC Rel Count 0.1, Neut # (Auto) 4.3, Lymph # (Auto) 1.8, [place] # (Auto) 0.6, Eos # (Auto) 0.2, [...] Plan - TNM Staging Staging: Stage: pIIIC ([id number]) Melanoma 5 year survival: 69% (1) Melanoma [...] [facility] surgical oncology group ordered metastatic staging with [...] for coordination of care (as documented) and [id number] counseling of patient and/or family. Dictated By: Rose Ohara MD DD/ [id number] Signed By: <Electronically signed by MD Rose Ohara> 04/13/23 1757 [facility] Work Phone: 1(377) 134-736902-16-2023 Progress note Author Rose Ohara [facility] December 23, 2022 11:01am Note Date/Time December 23, 2022 9:06am [facility] [address] [address] Hem/Onc Follow Up Note - OP Signed Patient: Tosha Mcneal MR#: [id number] : 1950 Acct:[id number] Age/Sex: 72 / F Type: REG RCR [...] related toxicities. Now following with dermatology at [facility] with no recurrence on skin exam. Surveillance [...] proceeded with wide local excision 09/05/2020 at [facility]. Outside review at [facility] showed at least 2.1 cm Breslow depth melanoma with 2 cm negative margins. She was referred to Dr. Cedrick Berger at [facility]. Right axillary sentinel lymph node biopsy performed [...] liver lesion. Her case was presented at [facility] cutaneous tumor board on 1prior to her metastatic staging. Discussion of referral to medical oncology fordiscussion of immunotherapy. The patient is now returning for medical oncology follow-up after review of all prior pathology and imaging. BRAF status is stillpending. She has healed well. She is a 10-year history of diabetes. She resides in [facility]. Today we reviewed immunotherapy counseling for [...] Therapies: 1. Initial wide local excision at [facility] 09/05/[address] Hernando Mccartney 2. Right sentinel lymph node biopsy 11/28/2020 at [facility] by Dr. Cedrick eBrger 3. Delay of immunotherapy due to work-up [...] % (Auto) 60.2, Lymph % (Auto) 24.8, [place] % (Auto) 11.9, Eos % (Auto) 1.9, Baso % (Auto) 1.2, Nucleat RBC Rel Count 0.2, Neut # (Auto) 4.1, Lymph # (Auto) 1.7, [place] # (Auto) 0.8, Eos # (Auto) 0.1, [...] Plan - TNM Staging Staging: Stage: pIIIC ([id number]) Melanoma 5 year survival: 69% (1) Melanoma [...] [facility] surgical oncology group ordered metastatic staging with [...] for coordination of care (as documented) and [id number] counseling of patient and/or family. Dictated By: Rose Ohara MD DD/ [id number] Signed By: <Electronically signed by MD Rose Ohara> 12/23/22 1107 [facility] Work Phone: 1(887) 628-838111-17-2022 Progress note Author Rose Ohara [facility] September 23, 2022 10:21am Note Date/Time September 23, 2022 8:36am [facility] at [address] [address] Hem/Onc Follow Up Note - OP Signed Patient: Tosha Mcneal MR#: [id number] : 1950 Acct:[id number] Age/Sex: 71 / F Type: REG RCR [...] related toxicities. Now following with dermatology at [facility] with no recurrence on skin exam. Surveillance [...] proceeded with wide local excision 09/05/2020 at [facility]. Outside review at [facility] showed at least 2.1 cm Breslow depth melanoma with 2 cm negative margins. She was referred to Dr. Cedrick Berger at [facility]. Right axillary sentinel lymph node biopsy performed [...] liver lesion. Her case was presented at [facility] cutaneous tumor board on 1prior to her metastatic staging. Discussion of referral to medical oncology fordiscussion of immunotherapy. The patient is now returning for medical oncology follow-up after review of all prior pathology and imaging. BRAF status is stillpending. She has healed well. She is a 10-year history of diabetes. She resides in [facility]. Today we reviewed immunotherapy counseling for [...] Therapies: 1. Initial wide local excision at [facility] 09/05/[address] Hernando Mccartney 2. Right sentinel lymph node biopsy 11/28/2020 at [facility] by Dr. Cedrick Berger 3. Delay of [...] % (Auto) 65.7, Lymph % (Auto) 21.6, Assumption % (Auto) 9.7, Eos % (Auto) 2.0, Baso % (Auto) 1.0, Neut # (Auto) 4.5, Lymph # (Auto) 1.5, Assumption # (Auto) 0.7, Eos# (Auto) 0.1, Baso [...] Plan - TNM Staging Staging: Stage: pIIIC ([id number]) Melanoma 5 year survival: 69% (1) Melanoma [...] [facility] surgical oncology group ordered metastatic staging with [...] for coordination of care (as documented) and uzfa-cu-yhhf counseling of patient and/or family. Dictated By: Rose Ohara MD DD/ [id number] Signed By: <Electronically signed by MD Rose Ohara> 09/23/22 1021 [facility] Work Phone: [phone]) 834-829708-25-2022 Progress note Author Rose Ohara [facility] July 01, 2022 8:35pm Note Date/Time July 01, 2022 10 :39am [facility] [place] [address] Hem/Onc Follow Up Note - OP Signed Patient: Tosha Mcneal MR#: [id number] : 1950 Acct:[id number] Age/Sex: 71 / F Type: REG RCR [...] related toxicities. Now following with dermatology at [facility] with no recurrence on skin exam. Surveillance ultrasound right axilla without recurrence. She will have routing f/u with [place] [address] CAP and [...] proceeded with wide local excision 09/05/2020 at [facility]. Outside review at [facility] showed at least 2.1 cm Breslow depth melanoma with 2 cm negative margins. She was referred to Dr. Cedrick Berger at [facility]. Right axillary sentinel lymph node biopsy performed [...] liver lesion. Her case was presented at [facility] cutaneous tumor board on 12/15/2020rior to her metastatic staging. Discussion of referral to medical oncology fordiscussion of immunotherapy. The patient is now returning for medical oncology follow-up after review of all prior pathology and imaging. BRAF status is stillpending. She has healed well. She is a 10-year history of diabetes. She resides in [facility]. Today we reviewed immunotherapy counseling for [...] Therapies: 1. Initial wide local excision at [facility] 09/05/[address] Hernando Mccartney 2. Right sentinel lymph node biopsy 11/28/2020 at [facility] by Dr. Cedrick Berger 3. Delay of [...] cit 4.5 mg-lutein 2.5 mg-zeaxan chew tablet ([employer]) 1 tab PO DAILY eye health 04/11/19 [...] % (Auto) 66.8, Lymph % (Auto) 18.8, Assumption % (Auto) 9.5, Eos % (Auto) 3.7, Baso % (Auto) 1.2, Neut # (Auto) 5.6, Lymph # (Auto) 1.6, Assumption # (Auto) 0.8, Eos #(Auto) 0.3, Baso [...] Plan - TNM Staging Staging: Stage: pIIIC ([id number]) Melanoma 5 year survival: 69% (1) Melanoma [...] [facility] surgical oncology group ordered metastatic staging with [...] for coordination of care (as documented) and nuvp-un-brdl counseling of patient and/or family. Dictated By: Rose Ohara MD DD/ 1038 Signed By: <Electronically signed by MD Rose Ohara> 07/01/222034 [facility] Work Phone: 1([phone]) 943-767505-26-2022 Progress note Author Rose Ohara [facility] April 01, 2022 1:09pm Note Date/Time March 31, 2022 1:30p m [facility] at [address] [address] Hem/Onc Follow Up Note - OP Signed Patient: Tosha Mcenal MR#: [id number] : 1950 Acct:[id number] Age/Sex: 71 / F Type: REG RCR [...] related toxicities. Now following with dermatology at [facility] with no recurrence on skin exam. Surveillance ultrasound right axilla without recurrence. She will have routing f/u with [place] in [address] CAP and [...] proceeded with wide local excision 09/05/2020 at [facility]. Outside review at [facility] showed at least 2.1 cm Breslow depth melanoma with 2 cm negative margins. She was referred to Dr. Cedrikc Berger at [facility]. Right axillary sentinel lymph node biopsy performed11/28/2020 [...] liver lesion. Her case was presented at [facility] cutaneous tumor board on 12/15/2020rior to her metastatic staging. Discussion of referral to medical oncology fordiscussion of immunotherapy. The patient is now returning for medical oncology follow-up after review of all prior pathology and imaging. BRAF status is stillpending. She has healed well. She is a 10-year history of diabetes. She resides in [facility]. Today we reviewed immunotherapy counseling for [...] Therapies: 1. Initial wide local excision at [facility] 09/05/[address] Hernando Mccartney 2. Right sentinel lymph node biopsy 11/28/2020 at [facility] by Dr. Cedrick Berger 3. Delay of [...] cit 4.5 mg-lutein 2.5 mg-zeaxan chew tablet ([employer]) 1 tab PO DAILY 04/11/19 [History Confirmed [...] % (Auto) 64.5, Lymph % (Auto) 22.3, Assumption % (Auto) 9.5, Eos % (Auto) 2.6, Baso % (Auto) 1.1, Neut # (Auto) 4.8, Lymph # (Auto) 1.7, Assumption # (Auto) 0.7, Eos# (Auto) 0.2, Baso [...] Plan - TNM Staging Staging: Stage: pIIIC ([id number]) Melanoma 5 year survival: 69% (1) Melanoma [...] [facility] surgical oncology group ordered metastatic staging with [...] for coordination of care (as documented) and kggr-lu-szje counseling of patient and/or family. Dictated By: Rose Ohara MD DD/ 1330 Signed By: <Electronically signed by MD Rose Ohara> 04/01/22 1303 [facility] Work Phone: 1([phone]) 569-332402-23-2022 Progress note Author Rose Ohara [facility] December 30, 2021 3:45pm Note Date/Time December 30, 2021 10:04[facility] at [address] [address] Hem/Onc Follow Up Note - OP Signed Patient: Tosha Mcneal MR#: [id number] : 1950 Acct:[id number] Age/Sex: 71 / F Type: REG RCR [...] related toxicities. Now following with dermatology at [facility] with no recurrence on skin exam. Surveillance ultrasound right axilla without recurrence. She will have routing f/u with [place] in [address] CAP and [...] proceeded with wide local excision 09/05/2020 at [facility]. Outside review at [facility] showed at least 2.1 cm Breslow depth melanoma with 2 cm negative margins. She was referred to Dr. Cedrick Berger at [facility]. Right axillary sentinel lymph node biopsy performed [...] liver lesion. Her case was presented at [facility] cutaneous tumor board on 1prior to her metastatic staging. Discussion of referral to medical oncology fordiscussion of immunotherapy. The patient is now returning for medical oncology follow-up after review of all prior pathology and imaging. BRAF status is stillpending. She has healed well. She is a 10-year history of diabetes. She resides in [facility]. Today we reviewed immunotherapy counseling for [...] Therapies: 1. Initial wide local excision at [facility] 09/05/[address] Hernando Mccartney 2. Right sentinel lymph node biopsy 11/28/2020 at [facility] by Dr. Cedrick Berger 3. Delay of [...] cit 4.5 mg-lutein 2.5 mg-zeaxan chew tablet ([employer]) 1 tab PO DAILY 04/11/19 [History Confirmed [...] Plan - TNM Staging Staging: Stage: pIIIC ([id number]) Melanoma 5 year survival: 69% (1) Melanoma [...] [facility] surgical oncology group ordered metastatic staging with [...] for coordination of care (as documented) and npvc-ga-afgg counseling of patient and/or family. Dictated By: Rose Ohara MD DD/ 1004 Signed By: <Electronically signed by MD Rose Ohara> 12/30/21 7045 [facility] Work Phone: [phone]) 519-772211-25-2021 Progress note Author Rose Ohara [facility] October 01, 2021 12:50pm Note Date/Time September 30, 2021 10:46am [facility] [place] [address] Hem/Onc Follow Up Note - OP Signed with Addenda Patient: Tosha Mcneal MR#: [id number] : 1950 Acct:[id number] Age/Sex: 70 / F Type: REG RCR Copies to: DO Bj Haddad MD Richard M Wiecek, MD~ ADDENDUM1 Correction 09/30/2021: Second line should note Shirt Ironer is Dr. Bj Robison in [place]--last skin exam 09/29/2021. Addendum Dictated By: MD [...] related toxicities. Now following with dermatology at [facility] with no recurrence on skin exam. Surveillance [...] proceeded with wide local excision 09/05/2020 at [facility]. Outside review at [facility] showed at least 2.1 cm Breslow depth melanoma with 2 cm negative margins. She was referred to Dr. Cedrick Berger at [facility]. Right axillary sentinel lymph node biopsy performed [...] liver lesion. Her case was presented at [facility] cutaneous tumor board on 12/15/2020rior to her metastatic staging. Discussion of referral to medical oncology fordiscussion of immunotherapy. The patient is now returning for medical oncology follow-up after review of all prior pathology and imaging. BRAF status is stillpending. She has healed well. She is a 10-year history of diabetes. She resides in [facility]. Today we reviewed immunotherapy counseling for [...] Therapies: 1. Initial wide local excision at [facility] 09/05/[address] Hernando Mccartney 2. Right sentinel lymph node biopsy 11/28/2020 at [facility] by Dr. Cedrick Berger 3. Delay of [...] cit 4.5 mg-lutein 2.5 mg-zeaxan chew tablet ([employer]) 1 tab PO DAILY 04/11/19 [History Confirmed [...] Plan - TNM Staging Staging: Stage: pIIIC ([id number]) Melanoma 5 year survival: 69% (1) Melanoma [...] [facility] surgical oncology group ordered metastatic staging with [...] for coordination of care (as documented) and rjcu-bj-mout counseling of patient and/or family. Dictated By: Rose Ohara MD DD/ 1046 Signed By: <Electronically signed by MD Rose Ohara> 09/30/211 [facility] Work Phone: 1(317) [phone] Progress note Author Rose Ohara [facility] June 29, 2021 6:03pm Note Date/Time June 29, 2021 10 :48am [facility] at [place] [id number] Hem/Onc Follow Up Note - OP Signed Patient: Tosha Mcneal MR#: [id number] : 1950 Acct:[id number] Age/Sex: 70 / F Type: REG RCR [...] proceeded with wide local excision 09/05/2020 at [facility]. Outside review at [facility] showed at least 2.1 cm Breslow depth melanoma with 2 cm negative margins. She was referred to Dr. Cedrick Berger at [facility]. Right axillary sentinel lymph node biopsy performed [...] liver lesion. Her case was presented at [facility] cutaneous tumor board on 1prior to her metastatic staging. Discussion of referral to medical oncology fordiscussion of immunotherapy. The patient is now returning for medical oncology follow-up after review of all prior pathology and imaging. BRAF status is stillpending. She has healed well. She is a 10-year history of diabetes. She resides in [facility]. Today we reviewed immunotherapy counseling for [...] Therapies: 1. Initial wide local excision at [facility] 09/05/[address] Hernando Mccartney 2. Right sentinel lymph node biopsy 11/28/2020 at [facility] by Dr. Cedrick Berger 3. Delay of [...] cit 4.5 mg-lutein 2.5 mg-zeaxan chew tablet ([employer]) 1 tab PO DAILY 04/11/19 [History Confirmed [...] Most Recent CBC and CMP 06/15/21 09:19 08/09/21 09:19 - Impressions Whole body PET-CT 06/17/2021. [...] Plan - TNM Staging Staging: Stage: pIIIC ([id number]) Melanoma 5 year survival: 69% (1) Melanoma [...] [facility] surgical oncology group ordered metastatic staging with [...] for coordination of care (as documented) and ixzb-ol-mbhz counseling of patient and/or family. Dictated By: Rose Ohara MD DD/ 1048 Signed By: <Electronically signed by MD Rose Ohara> 06/29/21 7671 [facility] Work Phone: 1([phone]) 311-927405-17-2021 Progress note Author Rose Ohara [facility] March 23, 2021 9:29am Note Date/Time March 23, 2021 9:09a m [facility] [address] [address] Hem/Onc Follow Up Note - OP Signed Patient: Tosha Mcneal MR#: [id number] : 1950 Acct:[id number] Age/Sex: 70 / F Type: REG RCR [...] proceeded with wide local excision 09/05/2020 at [facility]. Outside review at [facility] showed at least 2.1 cm Breslow depth melanoma with 2 cm negative margins. She was referred to Dr. Cedrick Berger at [facility]. Right axillary sentinel lymph node biopsy performed [...] liver lesion. Her case was presented at [facility] cutaneous tumor board on 12/15/2020rior to her metastatic staging. Discussion of referral to medical oncology fordiscussion of immunotherapy. The patient is now returning for medical oncology follow-up after review of all prior pathology and imaging. BRAF status is stillpending. She has healed well. She is a 10-year history of diabetes. She resides in [facility]. Today we reviewed immunotherapy counseling for [...] Therapies: 1. Initial wide local excision at [facility] 09/05/[address] Hernando Mccartney 2. Right sentinel lymph node biopsy 11/28/2020 at [facility] by Dr. Cedrick Berger 3. Delay of [...] % (Auto) 69.8, Lymph % (Auto) 16.9, Assumption % (Auto) 9.7, Eos % (Auto) 2.4, Baso % (Auto) 1.2, Neut # (Auto) 5.1, Lymph # (Auto) 1.2, Assumption # (Auto) 0.7, Eos # (Auto) 0.2, [...] Plan - TNM Staging Staging: Stage: pIIIC ([id number]) Melanoma 5 year survival: 69% (1) Melanoma [...] [facility] surgical oncology group ordered metastatic staging with [...] for coordination of care (as documented) and mqlt-hf-kcal counseling of patient and/or family. Dictated By: Rose Ohara MD DD/ 7 Signed By: <Electronically signed by MD Rose Ohara> 03/23/21928 [facility] Work Phone: [phone]) [phone] Progress note Author Rose Ohara [facility] February 09, 2021 1:28pm Note Date/Time February 09, 2021 8:[address] [facility] [place] [address] Hem/Onc Follow Up Note - OP Signed Patient: Tosha Mcneal MR#: [id number] : 1950 Acct:[id number] Age/Sex: 70 / F Type: REG RCR [...] proceeded with wide local excision 09/05/2020 at [facility]. Outside review at [facility] showed at least 2.1 cm Breslow depth melanoma with 2 cm negative margins. She was referred to Dr. Cedrick Berger at [facility]. Right axillary sentinel lymph node biopsy performed [...] liver lesion. Her case was presented at [facility] cutaneous tumor board on 1prior to her metastatic staging. Discussion of referral to medical oncology fordiscussion of immunotherapy. The patient is now returning for medical oncology follow-up after review of all prior pathology and imaging. BRAF status is stillpending. She has healed well. She is a 10-year history of diabetes. She resides in [facility]. Today we reviewed immunotherapy counseling for [...] Therapies: 1. Initial wide local excision at [facility] 09/05/[address] Hernando Mccartney 2. Right sentinel lymph node biopsy 11/28/2020 at [facility] by Dr. Cedrick Berger 3. Delay of [...] environmental allergies and food allergies. [facility] - History Attestation statement: The following information [...] Plan - TNM Staging Staging: Stage: pIIIC ([id number]) Melanoma 5 year survival: 69% (1) Melanoma [...] [facility] surgical oncology group ordered metastatic staging with [...] for coordination of care (as documented) and vxlr-dt-oojx counseling of patient and/or family. Dictated By: Rose Ohara MD DD/ 0807 Signed By: <Electronically signed by MD Rose Ohara> 02/09/21 1328 [facility] Work Phone: 1([phone]) 236-657411-25-2020 Consult note Author Bang Nunez [facility] October 01, 2020 11:21am Note Date/Time October 01, 2020 11:10am [facility] [place] [address] Hem/Onc Consult Note - OP Signed Patient: Tosha Mcneal MR#: [id number] : 1950 Acct:[id number] Age/Sex: 69 / F Type: REG RCR [...] history of diabetes. She resides in [facility]. [facility] - Medical History Medical History: Medical History [...] [facility] surgical oncology group for his opinion. I will see her back at a later date. - Time with Patient Coordination of Care & Counseling Time: Greater than 50% of time spent with patient was for coordination of care (as documented) and dpln-wv-hvvd counseling of patient and/or family. Dictated By: Bang Nunez MD DD/ 1108 Signed By: <Electronically signed by MD Bang Nunez> 10/01/20 1121 [facility] Work Phone: Evaluation note* Diagnosis Onset Date Resolution Status Diabetes mellitus chronic Encounter for antineoplastic immunotherapy chronic Enlarged pituitary gland chr onic Melanoma chronic [facility] Work Phone: Evaluation note* Diagnosis Onset Date Resolution Status Enlarged pituitary gland acu te Diabetes mellitus chronic Encounter for antineoplastic immunotherapy chronic Melanoma chronic [facility] Work Phone: Evaluation note* Diagnosis Onset Date Resolution Status Enlarged pituitary gland acu te Diabetes mellitus chronic Encounter for antineoplastic immunotherapy chronic Melanoma chronic Enlarged pituitary gland acu te Malignant melanoma of right upper limb, including shoulder acute Diabetes mellitus chronic [facility] Work Phone: Evaluation note* Diagnosis Aftercare following left knee joint replacement surgery- Primary Acute pain of left knee Stiffness of left knee Primary osteoarthritis of left knee documented in this encounter [facility] HealthcareEvaluation [facility]* Diagnosis Aftercare following left knee joint replacement surgery- Primary Acute pain of left knee Stiffness of left knee Primary osteoarthritis of left knee documented in this encounter [facility] HealthcareEvaluation note* Diagnosis Aftercare following left knee joint replacement surgery- Primary Acute pain of left knee Stiffness of left knee Primary osteoarthritis of left knee documented in this encounter [facility] Healthcare[facility]* Diagnosis Type 2 diabetes mellitus with stage 3a chronic kidney disease, with long-term current use of insulin ([facility])- Primary Gout, unspecified cause, unspecified chronicity, unspecified site Mixed hyperlipidemia Morbid obesity ([facility]) Morbid obesity 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 ([facility]) [facility] in this [facility] filedocumented in this encounter [facility] filedocumented in this [facility] filed[facility]ed [facility] Author Rose Lev [facility] July 01, 2022 8:35pm Note Date/Time July 01, 2022 10 :39am [facility] [place] [address] Hem/Onc Follow Up Note - OP Signed Patient: Tosha Mcneal MR#: M [id number] : 1950 Acct:[id number] Age/Sex: 71 / F Type: REG RCR [...] related toxicities. Now following with dermatology at [facility] with no recurrence on skin exam. Surveillance ultrasound right axilla without recurrence. She will have routing f/u with [place] [address] CAP and [...] proceeded with wide local excision 09/05/2020 at [facility]. Outside review at [facility] showed at least 2.1 cm Breslow depth melanoma with 2 cm negative margins. She was referred to Dr. Cedrick Berger at [facility]. Right axillary sentinel lymph node biopsy performed [...] liver lesion. Her case was presented at [facility] cutaneous tumor board on 12/15/2020rior to her metastatic staging. Discussion of referral to medical oncology fordiscussion of immunotherapy. The patient is now returning for medical oncology follow-up after review of all prior pathology and imaging. BRAF status is stillpending. She has healed well. She is a 10-year history of diabetes. She resides in [facility]. Today we reviewed immunotherapy counseling for [...] Therapies: 1. Initial wide local excision at [facility] 09/05/[address] Hernando Mccartney 2. Right sentinel lymph node biopsy 11/28/2020 at [facility] by Dr. Cedrick Berger 3. Delay of [...] environmental allergies and food allergies. [facility] - History Attestation statement: The following information [...] % (Auto) 66.8, Lymph % (Auto) 18.8, Assumption % (Auto) 9.5, Eos % (Auto) 3.7, Baso % (Auto) 1.2, Neut # (Auto) 5.6, Lymph # (Auto) 1.6, Assumption # (Auto) 0.8, Eos #(Auto) 0.3, Baso [...] Plan - TNM Staging Staging: Stage: pIIIC ([id number]) Melanoma 5 year survival: 69% (1) Melanoma [...] [facility] surgical oncology group ordered metastatic staging with [...] for coordination of care (as documented) and cvvv-vp-jjuk counseling of patient and/or family. Dictated By: Rose Ohara MD DD/ 1038 Signed By: <Electronically signed by MD Rose Ohara> 07/01/222034 [facility] Work Phone: Progress note Author Rose Ohara [facility] September 23, 2022 10:21am Note Date/Time September 23, 2022 8:36am [facility] [place] [id number] Hem/Onc Follow Up Note - OP Signed Patient: Tosha Mcneal MR#: [id number] : 1950 Acct:[id number] Age/Sex: 71 / F Type: REG RCR [...] related toxicities. Now following with dermatology at [facility] with no recurrence on skin exam. Surveillance [...] proceeded with wide local excision 09/05/2020 at [facility]. Outside review at [facility] showed at least 2.1 cm Breslow depth melanoma with 2 cm negative margins. She was referred to Dr. Cedrick Berger at [facility]. Right axillary sentinel lymph node biopsy performed [...] liver lesion. Her case was presented at [facility] cutaneous tumor board on 1prior to her metastatic staging. Discussion of referral to medical oncology fordiscussion of immunotherapy. The patient is now returning for medical oncology follow-up after review of all prior pathology and imaging. BRAF status is stillpending. She has healed well. She is a 10-year history of diabetes. She resides in [facility]. Today we reviewed immunotherapy counseling for [...] Therapies: 1. Initial wide local excision at [facility] 09/05/[address] Hernando Mccartney 2. Right sentinel lymph node biopsy 11/28/2020 at [facility] [place] by Dr. Cedrick Berger 3. Delay of [...] % (Auto) 65.7, Lymph % (Auto) 21.6, Assumption % (Auto) 9.7, Eos % (Auto) 2.0, Baso % (Auto) 1.0, Neut # (Auto) 4.5, Lymph # (Auto) 1.5, Assumption # (Auto) 0.7, Eos# (Auto) 0.1, Baso [...] Plan - TNM Staging Staging: Stage: pIIIC ([id number]) Melanoma 5 year survival: 69% (1) Melanoma [...] [facility] surgical oncology group ordered metastatic staging with [...] for coordination of care (as documented) and [id number] counseling of patient and/or family. Dictated By: Rose Ohara MD DD/ [id number] Signed By: <Electronically signed by MD Rose Ohara> 09/23/22 1021 [facility] Work Phone: Progress note Author Rose Ohara [facility] April 13, 2023 5:59pm Note Date/Time April 13, 2023 9:30a m [facility] [place] [address] Hem/Onc Follow Up Note - OP Signed Patient: Tosha Mcneal MR#: [id number] : 1950 Acct:[id number] Age/Sex: 72 / F Type: REG RCR [...] She is leaving for a cruise to [place] this month. Continue 4 month followup with [...] related toxicities. Now following with dermatology at [facility] with no recurrence on skin exam. Surveillance [...] proceeded with wide local excision 09/05/2020 at [facility]. Outside review at [facility] showed at least 2.1 cm Breslow depth melanoma with 2 cm negative margins. She was referred to Dr. Cedrick Berger at [facility]. Right axillary sentinel lymph node biopsy performed [...] liver lesion. Her case was presented at [facility] cutaneous tumor board on 12/15/2020rior to her metastatic staging. Discussion of referral to medical oncology fordiscussion of immunotherapy. The patient is now returning for medical oncology follow-up after review of all prior pathology and imaging. BRAF status is stillpending. She has healed well. She is a 10-year history of diabetes. She resides in [facility]. Today we reviewed immunotherapy counseling for [...] Therapies: 1. Initial wide local excision at [facility] 09/05/[address] Hernando Mccartney 2. Right sentinel lymph node biopsy 11/28/2020 at [facility] [place] by Dr. Cedrick Berger 3. Delay of [...] % (Auto) 62.3, Lymph % (Auto) 26.0, Assumption % (Auto) 8.6, Eos % (Auto) 2.2, Baso % (Auto) 0.9, Nucleat RBC Rel Count 0.1, Neut # (Auto) 4.3, Lymph # (Auto) 1.8, Assumption # (Auto) 0.6, Eos # (Auto) 0.2, [...] by: Miki Kruse Jr., D.OPablo04/07/2023 8:57 AM Assessment and Plan - TNM Staging Staging: Stage: pIIIC ([id number]) Melanoma 5 year survival: 69% (1) Melanoma [...] [facility] surgical oncology group ordered metastatic staging with [...] for coordination of care (as documented) and aash-on-dcxy counseling of patient and/or family. Dictated By: Rose Ohara MD DD/ [id number] Signed By: <Electronically signed by MD Rose Ohara> 04/13/23 8338 [facility] Work Phone: Summary Purpose Family [...] right arm melanoma Surgeon: Cedrick Berger Resident/Fellow/Other Adoption Agent: Ramiro Bhat Procedure: 1. RIGHT AXILLARY SENTINEL [...] section and content) DATE CREATED AUTHOR 10/24/2020 [employer] DATE CREATED AUTHOR AUTHOR'S ORGANIZ ATION 12/14/2020 [facility] DATE CREATED AUTHOR AUTHOR'S ORGANIZ ATION 10/07/2021 [facility] DATE CREATED AUTHOR AUTHOR'S ORGANIZ ATION 04/09/2022 [facility] DATE CREATED AUTHOR AUTHOR'S ORGANIZ ATION 03/07/2023 [facility] DATE CREATED AUTHOR AUTHOR'S ORGANIZ ATION 10/12/2023 [facility] DATE CREATED AUTHOR AUTHOR'S ORGANIZ ATION 11/10/2023 [facility] DATE CREATED AUTHOR AUTHOR'S ORGANIZ ATION 12/22/2023 [facility] DATE CREATED AUTHOR AUTHOR'S ORGANIZ ATION 01/05/2024 [facility] DATE CREATED AUTHOR AUTHOR'S ORGANIZ ATION 06/09/[address] [facility] DATE CREATED AUTHOR AUTHOR'S ORGANIZ ATION 06/24/2024 [facility] DATE CREATED AUTHOR AUTHOR'S ORGANIZ ATION 07/18/2024 [facility] DATE CREATED AUTHOR AUTHOR'S ORGANIZ ATION 08/19/2024 [facility] Care Teams (unrecognized sec tion and content) Team Status: Active Member Role Status Dates Wild Centeno DO Primary Care Provider Active Team Status: Inactive Member Role Status Dates Wild Centeno DO Primary Care Provider Active Start: December 13, 2023 End: December 13, 2023 PARTH CamposP-C Attending Provider Active S tart: December 13, [...] Status: Inactive Member Role Status Dates Wild HelderDO carito Primary Care Provider Active Start: December 15, 2023 End: December 15, 2023 Rose Ohara MD Attending Provider Active Start: December 15, 2023 End: December 15, 2023 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 Start Date End Date Unallocated, [place] Provider [address] [place] [address] PCP - General Family Medicine 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 Start Date End Date Unallocated, [place] Provider [address] [place] [address] PCP - General Family Medicine 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 Start Date End Date Unallocated, [place] Provider [address] [place] [address] PCP - General Family Medicine 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 Start Date End Date Unallocated, [place] Provider [address] [place] [address] PCP - General Family Medicine 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 Start Date End Date Unallocated, [place] Provider [address] [place] [address] PCP - General Family Medicine 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 Start Date End Date Unallocated, [place] Provider [address] [place] [address] PCP - General Family Medicine 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 Start Date End Date Wild Centeno DO [address] [place] [address] PCP - General Family Medicine 11/30/17 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 Start Date End Date Wild Centeno DO [address] [place] [address] PCP - General Family Medicine 11/30/17 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 Start Date End Date Wild Centeno DO [address] [place] [address] PCP - General Family Medicine 11/30/17 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 Start Date End Date Wild Centeno DO [address] [place] [address] PCP - General Family Medicine 11/30/17 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 Start Date End Date Wild Centeno DO [address] [place] [address] PCP - General Family Medicine 11/30/17 Goals [...] content) Specialty Diagnoses / Procedures Referred By Conthedy t Referred To Contact Physical Therapy Diagnoses S/P total knee replacement using cement, left Procedures DE MANUAL THERAPY TQS 1/> REGIONS EACH 15 MINUTES PHYS/OCC THERAPY SS DE THERAPEUTIC PX 1/> AREAS EACH 15 MIN EXERCISES DE THER PX 1/> AREAS EACH 15 MIN [facility] Aly Higgins MD [address] [place] [address] Aman Yu, PT [address] [facility] [address] [place] [address] Referral ID Status Reason Start Date Expiration Date Visits Re quested Visits Authorized [id number] Closed 11/07/2023 10/19/2024 1 10 Referral ID Status Reason Start Date Expiration Date V isits Requested Visits Authorized [id number] Authorized 12/19/2023 10/02/2025 28 28 Reason Comments [...] BE BASED ON THE PRIMARY CLINICAL RECORDS. [facility] provides no warranty or guarantee of the accuracy or completeness of information in this document.
--- NOTE | 2024-08-21 12:31 | ED.NECK1 ---
HPI HPI - Neck Pain/Injury General Chief Complaint: Neck Pain/Injury Stated Complaint: NECK PAIN Time Seen by Provider: 08/21/24 12:09 Source: patient Mode of arrival: walk-in History of Present Illness HPI Narrative: 73-year-old female presents to the emergency department for neck pain. She woke up this way 2 days ago after sleeping in her own bed. There is no injury. She has not had a fever or headache or weakness. She has never had neck issues before. Related Data Previous Rx's ?Medication ?Instructions ?Recorded etodolac 300 mg capsule 300 mg PO Q8H PRN pain #20 caps 08/21/24 methocarbamol 500 mg tablet 500 mg PO Q8H PRN pain #20 tabs 08/21/24 Allergies Allergy/AdvReac Type Severity Reaction Status Date / Time No Known Drug Allergies Allergy Verified 08/21/24 12:18 Opioid HPI Opioid Management Most Recent Opioid Data: Last Pain Scale 10 08/21/24 12:47 08/21/24 Last JAN Pain Assessment 08/21/24 12:47 Review of Systems ROS Narrative A ten point review of systems is negative except as noted above. Exam Narrative Exam Narrative: Nurses note and vital signs reviewed and patient is not hypoxic. General: The patient appears well and in no apparent distress. Patient is resting comfortably on cart. Skin: Warm, dry, no pallor noted. There is no rash noted. Head: Normocephalic, atraumatic. No mass or swelling or bruising or rash in her neck. She is reluctant to turn her head to the side. Eye: Normal conjunctiva, no drainage Ears, Nose, Mouth, and Throat: oral mucosa is moist. Nares patent. Cardiovascular: Regular Rate and Rhythm Respiratory: Patient is in no distress, no accessory muscle use, lungs are clear to auscultation, no wheezing, rales or rhonchi Back: non-tender GI: Soft and nontender Musculoskeletal: No joint swelling Neurological: A&O, normal speech Psychiatric: Cooperative Constitutional Vital Signs, click to edit/add: Last Vital Signs Temp 98.5 F 08/21/24 12:13 Pulse 71 08/21/24 12:13 Resp 16 08/21/24 12:13 BP 187/65 H 08/21/24 12:13 Pulse Ox 94 L 08/21/24 12:13 O2 Del Method Room Air 08/21/24 12:13 Course Vital Signs Vital signs: Vital Signs Temperature 98.5 F 08/21/24 12:13 Pulse Rate 71 08/21/24 12:13 Respiratory Rate 16 08/21/24 12:13 Blood Pressure 187/65 H 08/21/24 12:13 Pulse Oximetry 94 L 08/21/24 12:13 Oxygen Delivery Method Room Air 08/21/24 12:13 Temperature 98.5 F 08/21/24 12:13 Pulse Rate 71 08/21/24 12:13 Respiratory Rate 16 08/21/24 12:13 Blood Pressure 187/65 H 08/21/24 12:13 Pulse Oximetry 94 L 08/21/24 12:13 Oxygen Delivery Method Room Air 08/21/24 12:13 MDM - Neck Pain/Injury MDM Narrative Medical decision making narrative: CT scan shows degenerative changes and findings are discussed with the patient. She was given IM Toradol and Norflex here and is feeling improved. She will be discharged home on methocarbamol and Lodine. Treatment diagnosis and follow-up were discussed with the patient. Differential Diagnosis Differential diagnosis: Likely disc disorder of cervical region, cervical radiculopathy, cervical spondylosis, strain of neck muscle and other (Torticollis) Imaging Data CT C-spine: Radiologist's impression: ITS Impressions Cervical Spine CT 08/21/24 13:03 IMPRESSION: 1. No acute fracture or malalignment of the cervical spine. 2. Moderate degenerative change of the cervical spine. Electronically authenticated by: HENRI PEREZ Date: 08/21/2024 13:16 Discharge Plan Discharge Chief Complaint: Neck Pain/Injury Clinical Impression: Torticollis Patient Disposition: Home, Self-Care Time of Disposition Decision: 13:46 Condition: Good Mode of Transportation: Private Vehicle Prescriptions / Home Meds: New methocarbamol 500 mg tablet 500 mg PO Q8H PRN (Reason: pain) Qty: 20 0RF etodolac 300 mg capsule 300 mg PO Q8H PRN (Reason: pain) Qty: 20 0RF Print Language: Setswana Instructions: Neck Pain (ED) Additional Instructions: Do not take tramadol or tizanidine for now. Use caution with methocarbamol as it can make you drowsy. Referrals: ОЛЕГ CENTENO [Primary Care Provider] - 1 week
[2024-08-21] MEDS: KETOROLAC TROMETHAMINE 60 MG/2 ML VIAL IM (12:47)
[2024-08-21] MEDS: ORPHENADRINE 60 MG/ 2 ML VIAL IM (12:47)
--- NOTE | 2024-08-21 13:03 | CT_ITS ---
The [address] [address] Patient Name: TANIYA MCNEAL MRN: [facility]:[id number] date: 1950 Sex: F Assigned Patient Location: ER Current Patient Location: ER Accession/Order Number: [id number] Exam Date: 08/21/2024 12:55 Report Date: 08/21/2024 13:16 At the request of: BRIAN LANDEROS Procedure: CT cervical spine wo con EXAM: CT cervical spine wo con HISTORY: Stiff neck x3 days no traumatic injury. COMPARISON: None. TECHNIQUE: Axial noncontrast CT imaging of the cervical spine was performed with coronal and sagittal reformats. This CT exam was performed using one or more of the following dose reduction techniques: Automated exposure control, adjustment of the MA and/or kV according to patient size, or use of iterative reconstruction technique. FINDINGS: Alignment: Straightening of the normal cervical lordosis with trace anterolisthesis of C4 on C5. Vertebrae: Vertebral body heights are maintained. No fracture. Craniocervical junction: No focal abnormality. Degenerative changes: There is moderate degenerative change of the cervical spine with moderate to advanced disc height loss at C5-C6 and C6-C7. Multilevel mild anterior osteophytic spurring. Multilevel prominent posterior disc osteophyte complexes. Multilevel mild to moderate uncovertebral arthropathy. Advanced bilateral uncovertebral arthropathy at C5-C6 and advanced left uncovertebral arthropathy at C6-C7. There is moderate to advanced left facet arthropathy at C7-T1 with multilevel wibn-yf-xtfenylt facet arthropathy seen at additional levels. There is multilevel at least moderate canal stenosis greater at C3-C4 C4-C5 and C5-C6. Multilevel mild foraminal stenosis. Moderate left foraminal stenosis at C5-C6 and C6-C7. Additional Comments: Prominent appearance of the thyroid without overt focal nodules seen. Vascular sclerosis. Partially retropharyngeal bilateral carotid systems. CT/CT cervical spine wo con IMPRESSION: 1. No acute fracture or malalignment of the cervical spine. 2. Moderate degenerative change of the cervical spine. Electronically authenticated by: HENRI PEREZ Date: 08/21/2024 13:16
[2024-08-21 14:07] VITALS: BP 160/70; PULSE 70; O2SAT 95
== END 2024-08-21 14:11 | disposition home or self-care (01) ==
PROVIDERS: Emergency Provider Emergency Medicine; PCP Family Medicine
DX: M43.6 Torticollis (principal)
CPT/HCPCS: 72125; 96372; 99284; J1885; J2360

== ENCOUNTER 2025-01-29 10:23 | Outpatient (OUT) | payer MEDICARE, OTHER, SELFPAY ==
--- OUTSIDE RECORDS SUMMARY | 2025-01-29 10:47 | XMS_ITS | CCD ---
Author Organization [facility] Care Team Providers Care Valet Manager Name Role Phone Furlong, Wild G Unavailable Unavailable Scheufele, Bahai Unavailable Unavailable Furlong, DO Wild Primary Care [...] Referring Provider MD Rose Ohara Attending Provider [phone] Furlong, DO Wild Primary Care Provider MD Mohan Mccartney Referring Provider MD Rose Ohara Attending Provider RONALDO, ALY E Referring Unavailable RONALDO, ALY E Admitting Unavailable RONALDO, ALY E Attending Unavailable VALENTINE PICKERING Consulting Unavailable WILD CENTENO Primary Care Unavailable Aly Higgins MD Attending Unavail able DO Wild Centeno Primary Care Provider [phone] ELVIRA Mesa Irma Attending Provider [phone] MD Mohan Mccartney Referring Provider MD Rose Ohara Attending Provider [phone] MD Mohan Mccartney Referring Provider MD Rose Ohara Attending Provider Unallocated, Noms Provider Primary Care Provider KELBLEY, IRMA Attending Unavailable RONALDO, ALY E Referring Unavailable KELBLEY, IRMA Attending Unavailable RONALDO, ALY E Referring Unavailable KELBLEY, IRMA Attending Unavailable RONALDO, ALY E Referring Unavailable KELBLEY, IRMA Attending Unavailable RNOALDO, ALY E Referring Unavailable KELBLEY, IRMA Attending [...] Attending Unavailable RONALDO, ALY E Referring Unavailable BLACKSTONAMAN T Attending Unavailable RONALDO, ALY E Referring Unavailable BLACKSTONAMAN T Attending Unavailable BRINK [place] Attending Unavailable RONALDO, ALY E Referring Unavailable BRINK [place] Attending Unavailable RONALDO, ALY E Referring [...] Unavailable FURLONG, WILD G Primary Care Unavailable Unallocated , Sincere Provider Primary Care Provi adriano Furlong DO, Wild Primary Care Provider Mohan Mccartney MD Referring Provider [phone] Rose Ohara MD Attending Provider Mohan Mccartney Referring Unavailable Rose Ohara Attending Unavailable Lev Rose Admitting Unavailable Furlong, Wild Primary Care Unavailable Shavon Mustafa Attending Unavailable Shavon Mustafa Attending Unavailable Lev Rose Referring Unavailable BONITA, IRMA Attending Unavailable MERCEDES, MOHAMAD Attending Unavailable CATHERINE, ALFRED Attending Unavailable CATHERINE, ALFRED Attending Unavailable MERCEDES, MOHAMAD Attending Unavailable Allergies Allergy Classification Reported Allergen(s) Allergy Type Date of Onset Reaction(s) Facility (1 source) No Alert Propensity to adverse reactions to drug 1 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 (1 source) empagliflozin; Translations: [EMPAGLIFLOZIN] Drug Allergy 4 [facility] Repository Medications Current Medications Medication Drug Class(es) Dates Sig (Normalized) Sig (Original) aspirin 81 mg delayed release oral tablet (16 sources) Platelet Aggregation Inhibitor, Nonsteroidal Anti-inflammatory Drug Start: 10-01-2020 take 1 tablet by mouth once daily Aspirin 81 mg Tablet,Delayed Release (Dr/Ec) Active 81 MG PO Daily October 01, 2020 12:00am Start: 04-11-2019 End: 04-13-2019 take 1 tablet by mouth once daily Aspirin 81 mg Tablet,Delayed Release (Dr/Ec) Discontinued 81 MG PO Daily April 10, 2019 11:00pm April 13, 2019 12:11pm carvedilol 25 mg oral tablet (8 sources) alpha-Adrenergic Sophy, beta-Adrenergic Sophy Start: 04-11-2019 take 1 tablet by mouth twice daily Carvedilol 25 mg tablet Active 25 MG PO Twice daily April 10, 2019 11:00pm furosemide 40 mg oral tablet (16 sources) Loop Diuretic Start: 01-11-2022 take 1 tablet by mouth once daily Furosemide (Lasix) 40 mg Tablet Active 40 MG PO Daily January 11, 2022 12:00am Start: 12-30-2021 End: 01-11-2022 take 1 tablet by mouth once daily Furosemide (Lasix) 20 mg Tablet Discontinued 20 MG PO Daily December 30, 2021 12:00am January 11, 2022 1:27pm lisinopril 40 mg oral tablet (8 sources) Angiotensin Converting Enzyme Inhibitor Start: 04-11-2019 take 1 tablet by mouth once daily Lisinopril 40 mg tablet Active 40 MG PO Daily April 10, 2019 11:00pm metFORMIN hydrochloride 1000 mg oral tablet (8 sources) Biguanide Start: 04-11-2019 take 1 tablet by mouth twice daily Metformin 1,000 mg tablet Active 1000 MG PO Twice daily April 10, 2019 11:00pm rosuvastatin calcium 10 mg oral tablet (8 sources) HMG-CoA Reductase Inhibitor Start: 04-11-2019 take 1 tablet by mouth once daily Rosuvastatin 10 mg tablet Active 10 MG PO Daily April 10, 2019 11:00pm spironolactone 25 mg oral tablet (8 sources) Aldosterone Antagonist Start: 12-30-2021 take 1 tablet by mouth once daily Spironolactone 25 mg Tablet Active 25 MG PO Daily December 30, 2021 12:00am Vit C-E-Zinc Gin-Duhzwf-Nkroyg ([facility]) 50 mg-15 unit- 4.5 mg-2.5 mg Tablet,Chewable (8 sources) Start: 04-11-2019 take 1 tablet by mouth once daily Vit C-E-Zinc Okk-Vgssda-Etketd ([facility]) 50 mg-15 unit- 4.5 mg-2.5 mg Tablet,Chewable Active 1 TAB PO Daily April 11, 2019 8:39am Start: 04-11-2019 take 1 tablet by montrell th once daily Vit C-E-Zinc Gpx-Ujsipk-Zppukn ([facility]) 50 mg-15 unit- 4.5 mg-2.5 mg Tablet,Chewable Active 1 TAB PO Daily April 10, 2019 11:00pm Start: 04-11-2019 take 1 tablet by montrell th once daily Vit C-E-Zinc Xdk-Gzlmoy-Ybdwvo ([facility]) 50 mg-15 unit- 4.5 mg-2.5 mg Tablet,Chewable Active 1 TAB PO Daily April 11, 2019 12:00am (1 source) Completed/Discontinued Medications Medication Drug Class(es) Dates Sig (Normalized) Sig (Original) alendronic acid 35 mg oral tablet (8 sources) Bisphosphonate Start: 04-11-2019 End: 12-15-2023 take 1 tablet by mouth every week Alendronate 35 mg tablet Discontinued 35 MG PO every week April 10, 2019 11:00pm December 15, 2023 10:19am amLODIPine 5 mg oral tablet (8 sources) Dihydropyridine Calcium Channel Sophy Start: 04-11-2019 End: 12-15-2023 take 1 tablet by mouth once daily Amlodipine 5 mg tablet Discontinued 5 MG PO Daily April 10, 2019 11:00pm December 15, 2023 10:19am amoxicillin 500 mg oral capsule (8 sources) Penicillin-class Antibacterial Start: 04-11-2019 End: 04-13-2019 take 1 capsule by mouth three times daily Amoxicillin 500 mg capsule Discontinued 500 MG PO Three times daily April 10, 2019 11:00pm April 13, 2019 10:01am dapagliflozin 5 mg oral tablet (8 sources) Sodium-Glucose Cotransporter 2 Inhibitor Start: 03-31-2022 End: 04-13-2023 take 1 tablet by mouth once daily Dapagliflozin Propanediol (Farxiga) 5 mg Tablet Discontinued 5 MG PO Daily March 30, 2022 11:00pm April 13, 2023 8:17am 0.5 ml dulaglutide 3 mg/ml auto-injector (8 sources) GLP-1 Receptor Agonist Start: 04-11-2019 End: 12-15-2023 Dulaglutide 1.5 mg/0.5 mL pen injector Discontinued 0.75 MG SUBCUT every week April 10, 2019 11:00pm December 15, 2023 10:19am Start: 04-11-2019 End: 12-15-2023 inject 0.75 mg by subcutaneous injection every week Dulaglutide Discontinued 0.75 MG SUBCUT every week April 10, 2019 11:00pm December 15, 2023 10:19am empagliflozin 25 mg oral tablet (8 sources) Sodium-Glucose Cotransporter 2 Inhibitor Start: 10-01-2020 End: 03-31-2022 take 1 tablet by mouth once daily Empagliflozin (Jardiance) 25 mg Tablet Discontinued 25 MG PO Daily October 01, 2020 12:00am March 31, 2022 12:23pm hydroCHLOROthiazide 25 mg oral tablet (8 sources) Thiazide Diuretic Start: 04-11-2019 End: 04-13-2023 take 1 tablet by mouth once daily Hydrochlorothiazide 25 mg tablet Discontinued 25 MG PO Daily April 10, 2019 11:00pm April 13, 2023 8:18am 3 ml insulin detemir 100 unt/ml pen injector (8 sources) Insulin Analog Start: 04-11-2019 End: 03-31-2022 inject 70 [IU] by subcutaneous injection once daily at bedtime Insulin Detemir U-100 100 unit/mL (3 mL) insulin pen Discontinued 70 UNITS SUBCUT Daily at bedtime April 10, 2019 11:00pm March 31, 2022 12:23pm meloxicam 7.5 mg oral tablet (8 sources) Nonsteroidal Anti-inflammator y Drug Start: 03-23-2021 End: 07-01-2022 Meloxicam 7.5 mg Tablet Discontinued 7.5 PO Daily as needed for Pain March 22, 2021 11:00pm July 01, 2022 9:30am potassium chloride 20 meq extended release oral tablet (8 sources) Start: 04-11-2019 End: 12-26-2024 take 1 tablet by mouth once daily Potassium Chloride 20 mEq tablet extended release Discontinued 20 MEQ PO Daily April 10, 2019 11:00pm December 26, 2024 1:03pm Problems Active Problems Problem Classification Problem Date Documented Date Episodic/Chronic Chronic kidney disease (1 source) Chronic kidney disease, stage 2 (mild); Translations: [CHRONIC KIDNEY DISEASE STAGE 2 MILD] Onset: 03-07-20 Chronic Chronic kidney disease (4 sources) Chronic kidney disease; Translations: [Chronic kidney disease, stage 3a] Onset: 03-14-20 Congestive heart failure; nonhypertensive (2 sources) Chronic diastolic (congestive) heart failure; Translations: [Chronic diastolic (congestive) heart failure] Onset: 01-18-20 Chronic Diabetes mellitus with complications (8 sources) Type 2 diabetes mellitus with diabetic chronic kidney disease; Translations: [TYPE 2 DM W/DIABETIC CKD] Onset: 08-26-20 Chronic Diabetes mellitus without complication (19 sources) Diabetes mellitus; Translations: [Type 2 diabetes mellitus without complications] Onset: 01-11-2002-09-2021 Chronic Disorders of lipid metabolism (9 sources) Mixed hyperlipidemia; Translations: [MIXED HYPERLIPIDEMIA] Onset: 08-29-20 Chronic Essential hypertension (3 sources) Essential (primary) hypertension; Translations: [ESSENTIAL PRIMARY HYPERTENSION] Onset: 08-29-20 Chronic Gout and other crystal arthropathies (3 sources) Gout, unspecified; Translations: [Gout due to renal impairment, right ankle and foot] Onset: 12-23-19 Chronic Hypertension with complications and secondary hypertension (9 sources) Hypertensive chronic kidney disease with stage 1 through stage 4 chronic kidney disease, or unspecified chronic kidney disease; Translations: [Hypertensive heart disease with heart failure] Onset: 03-07-20 Chronic Immunizations and screening for infectious disease (1 source) Encounter for immunization; Translations: [Encounter for immunization] Onset: 08-16-20 Episodic Maintenance chemotherapy; radiotherapy (19 sources) Patient encounter status; Translations: [Encounter for antineoplastic immunotherapy] 02-09-2021 Chronic Melanomas of skin (20 sources) Malignant melanoma of upper arm; Translations: [Malignant melanoma] Onset: 12-26-1902-09-2021 Chronic Osteoarthritis (3 sources) Osteoarthritis of left knee joint; Translations: [Unilateral primary osteoarthritis, left knee] 12-14-2023 Chronic Other and ill-defined heart disease [...] Onset: 10-03-20 Chronic Other connective tissue disease (1 source) H/O: arthritis; Translations: [History of arthritis] Episodic Other connective tissue disease (1 source) H/O: gout; Translations: [History of gout] Episodic Other connective tissue disease (1 source) History of osteoporosis; Translations: [History of osteoporosis] Episodic Other endocrine disorders (8 sources) Pituitary gland enlarged; Translations: [Other disorders of pituitary gland] 03-23-2021 Chronic Other endocrine disorders (11 sources) Other disorders of pituitary gland; Translations: [Other disorders of the pituitary and other syndromes of diencephalohypophyseal origin] Onset: 07-16-20 Chronic Other non-traumatic joint disorders (3 sources) Pain [...] for malignant neoplasm of breast] Onset: 06-07-20 24 Episodic Other screening for suspected conditions (not mental disorders or infectious disease) (1 source) No current problems or disability Onset: 02-09-20 21 Residual codes; unclassified (2 sources) Edema, unspecified; Translations: [Edema, unspecified] Onset: 01-03-20 Episodic Spondylosis; intervertebral disc disorders; other back problems (1 source) Muscle spasm of back; Translations: [Muscle spasm of back] Onset: 08-16-20 Episodic Unclassified (1 source) Low back pain, unspecified; Translations: [Low back pain, unspecified] Onset: 08-16-20 Unclassified (1 source) gout in big toe Onset: 12-23-19 Past or Other Problems Problem Classification Problem Date Documented Da te Episodic/Chronic Other aftercare (3 sources) 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; Translations: [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] Onset: 08-05-2022 Episodic Other gastrointestinal disorders (4 sources) Diarrhea, unspecified; Translations: [DIARRHEA UNSPECIFIED] Onset: 08-11-2022 Episodic Other lower respiratory disease (4 sources) Dyspnea, unspecified; Translations: [DYSPNEA UNSPECIFIED] Onset: 04-29-2022 Episodic Other lower respiratory disease (2 sources) Other forms of dyspnea; Translations: [Other forms of dyspnea] Onset: 05-17-2023 Episodic Residual codes; unclassified (2 sources) Localized edema; Translations: [Localized edema] Onset: 05-18-2024 Episodic Results Test Name Value Interpretation Reference Range Facility Office Visiton 01-17-2025 Follow-up visit [id number] ElizabetReneee Ilan 1950 F Date Provider Department Center 01/17/2025 [facility] Family History Problem Relation Age of Onset Coronary artery disease Father Heart attack Father Family Status - Relation Status Age at Father Level of Service:88999 [place] OFFICE/OUTPATIENT ESTABLISHED LOW MDM 20 MIN Reason for Visit and Comments: Congestive Heart Failure [127] Hypertension [513918] Normal [facility] Reminderson 01-16-2025 Reminders Reminders From: Chaya Alicea To: EU - Recalls Lue; Sent: 01/16/2025 10:10:51 EDT Show up: 03/18/2025 10:10:00 EDT [place]: [facility] [place] [facility] [place] Date/Time: 04/18/2025 10:10:00 EDT Reminder Message Pt to complete [facility] [place] [facility] [place] appt in 3 mos. Order in encounter from 01/16/25 (dx: hydroureteronephrosis). Normal [facility] 37on 01-03-2025 37 *Will increase lasix for the next week: - Take 2 tablets in the AM, 1 tablet in the early evening for 2 days then take 1 tablet twice daily for 5 days. Normal [facility] Office Visiton 01-03-2025 Follow-up visit [id number] Renee Mcneal 1950 F Date Provider Department Center 01/03/2025 ALFRED CARRINGTON Family History Problem Relation Age of Onset Coronary artery disease Father Heart attack Father Family Status - Relation Status Age at Father Level of Service:62170 [place] OFFICE/OUTPATIENT ESTABLISHED MOD MDM 30 MIN Reason for Visit and Comments: Congestive Heart Failure [127] Normal [facility] Alanine aminotransferase [En zymatic activity/volume] in Serum or PlasmaOrdered By: Rose Ohara on 12-11-2024 ALT [Catalytic activity/Vol] Alanine aminotransferase [Enzymatic activity/volume] in Serum or Plasma 7-52 [facility] Albumin [Mass/volume] in Ser um or Plasma by Bromocresol green (BCG) dye binding methoOrdered By: Rose Ohara on 12-11-2024 Albumin BCG dye [Mass/Vol] Albumin [Mass/volume] in Serum or Plasma by Bromocresol green (BCG) dye binding metho 3.5-5.7 [facility] Alkaline phosphatase [Enzyma tic activity/volume] in Serum or PlasmaOrdered By: Rose Ohara on 12-11-2024 ALP [Catalytic activity/Vol] Alkaline phosphatase [Enzymatic activity/volume] in Serum or Plasma 34-104 [facility] Aspartate aminotransferase [ Enzymatic activity/volume] in Serum or PlasmaOrdered By: Rose Ohara on 12-11-2024 AST [Catalytic activity/Vol] Aspartate aminotransferase [Enzymatic activity/volume] in Serum or Plasma Low 13-39 [facility] Basophils Auto (Bld) [#/Vol] Ordered By: Rose Ohara on 12-11-2024 Basophils (Bld) [#/Vol] Automated basophil count 0.0-0.2 [facility] Basophils/100 WBC Auto (Bld) Ordered By: Rose Ohara on 12-11-2024 Basophils/100 WBC (Bld) Automated basophil % . [facility] Bilirubin.total [Mass/volume ] in Serum or PlasmaOrdered By: Rose Ohara on 12-11-2024 Bilirubin [Mass/Vol] Bilirubin.total [Mass/volume] in Serum or Plasma High 0.3-1.0 [facility] CBC W Auto Differential pane l (Bld)on 12-11-2024 Basophils/100 WBC Manual cnt (Syn fld) 1.1 % . [facility] Eosinophils/100 WBC Manual cnt (Syn fld) 1.7 % . [facility] Interpretation and review of laboratory results Abnormal [facility] Lymphocytes/100 WBC Manual cnt (Syn fld) 19.4 % . [facility] MCHC (RBC) [Mass/Vol] 33.1 g/dL 32.0 - 35.0 g/dL [facility] Monocytes+Macrophages/ 100 WBC Manual cnt (Syn fld) 8.3 % . [facility] Neutrophils/100 WBC Manual cnt (Syn fld) 69.5 % . [facility] NRBC 0.1 /100{WBC} 0 - 0.5 /100{WBC} [facility] RBC LM.HPF (Urine sed) [#/Area] 4.95 10*6/uL 3.60 - 5.00 10*6/uL [facility] WBC LM.HPF (Urine sed) [#/Area] 8.4 10*3/uL 3.8 - 11.6 10*3/uL [facility] CT abdomen pelvis w conon CT abdomen pelvis w [facility] [place] [address] CT Scan Report Signed Patient: Tosha Mcneal MR#: [id number] : 1950 Acct:[id number] Age/Sex: 73 / F ADM Date: 12/11/24 Loc: Room: Type: [facility] Attending Dr: Rose Ohara MD Copies to: Rose Ohara MD Ordering Provider: Rose Ohara MD Date of Service: 12/11/24 CT/CT abdomen pelvis w con: melanoma rt upper arm ([id number]) CT/CT chest w con: melanoma rt upper arm CT CHEST, ABDOMEN AND PELVIS WITH INTRAVENOUS CONTRAST: CLINICAL HISTORY: Restage melanoma. COMPARISON: CT chest, abdomen and pelvis 12/13/2023 TECHNIQUE: TECHNIQUE: Spiral images were obtained through the chest, abdomen and pelvis following the administration of IV contrast. This CT exam was performed using one or more following dose reduction techniques: Automated exposure control, adjustment of the mA and/or kV according to patient size, or use of iterative reconstruction technique. FINDINGS: CT chest: Mediastinum:Subcentimeter nodules are seen involving the thyroid gland. Thoracic aorta appears normal in caliber. Pulmonary trunk appears nondilated. No pleural effusion or lymphadenopathy. The esophagus is grossly unremarkable. Lungs:No consolidation pneumothorax or pleural effusion. Scattered lung scarring. No suspicious pulmonary nodule Soft tissues/Bones: No acute findings. Osseous structures demonstrate degenerative change. CT abdomen and pelvis: Organs:Cholelithiasis. Liver portal vein pancreas spleen and adrenal glands appear unremarkable. No enhancing renal mass. Right-sided hydronephrosis and hydroureter without obstructing stone or mass. Aorta appears normal in caliber.[ GI: Stomach is grossly unremarkable. Duodenal diverticulum. Small bowel appears nondilated. Appendix is normal. No acute colonic abnormality.[ Pelvis:[Urinary bladder is minimally distended. Partially calcified fibroid uterus. No adnexal mass.] Peritoneum/Retroperitoneu m:No free air or free fluid or lymphadenopathy.[ Abd wall/Bones:No acute findings. Osseous structures demonstrate degenerative change.[ CT/CT chest w con IMPRESSION: No CT evidence of progression disease seen within the chest, abdomen or pelvis. Right-sided hydronephrosis and hydroureter without obstructing stone or mass. Finding is nonspecific. Underlying UVJ stricture cannot BE excluded. Impression dictated by: Miki Kruse Jr., D.O.12/11/2024 2:37 PM Dictation Location: [place] [address] Transcribed By: [facility] 12/11/24 1437 Dictated By: Miki Kruse Jr, DO 12/11/24 1433 Signed By: 12/11/24 1437 Normal [facility] Calcium [Mass/volume] in Ser um or PlasmaOrdered By: Rose Ohara on 12-11-2024 Calcium [Mass/Vol] Calcium [Mass/volume ] in Serum or Plasma 8.6-10.3 [facility] Carbon dioxide, total [Moles /volume] in Serum or PlasmaOrdered By: Rose Ohara on 12-11-2024 CO2 [Moles/Vol] Carbon dioxide, tota l [Moles/volume] in Serum or Plasma 21.0-31.0 [facility] Chloride [Moles/volume] in S marlena or PlasmaOrdered By: Rose Ohara on 12-11-2024 Chloride [Moles/Vol] Chloride [Moles/vol ume] in Serum or Plasma 98-107 [facility] Complete Blood Count Auto Di ffon 12-11-2024 Basophils (Bld) [#/Vol] 0.1 10*3/uL Normal 0.0-0.2 [facility] Comment on above: Result Comment: PERF ORMED BY: [place] [address] PATHOLOGIST SECOND BALLER SANJUANITA GHOTRA M.D. Performed By: #### C BC #### [address] Eosinophils (Bld) [#/Vol] 0.1 10*3/uL Normal 0.0-0.45 [facility] Comment on above: Performed By: #### C BC #### [address] Erythrocyte distribution width (RBC) [Ratio] 15.6 % High 11.9-15.3 [facility] Comment on above: Performed By: #### C BC #### [address] Hematocrit (Bld) [Volume fraction] 44.2 % Normal 34.0-46.4 [facility] Comment on above: Performed By: #### C BC #### [address] Hemoglobin (Bld) [Mass/Vol] 14.6 g/dL Normal 11.8-15.4 [facility] Comment on above: Performed By: #### C BC #### [address] Lymphocytes (Bld) [#/Vol] 1.6 10*3/uL Normal 1.00-4.8 [facility] Comment on above: Performed By: #### C BC #### [address] MCH (RBC) [Entitic mass] 29.6 pg Normal 24.7-34.3 [facility] Comment on above: Performed By: #### C BC #### [address] MCV (RBC) [Entitic vol] 89.3 fL Normal 80-100 [facility] Comment on above: Performed By: #### C BC #### [address] Monocytes (Bld) [#/Vol] 0.7 10*3/uL Normal 0.0-0.8 [facility] Comment on above: Performed By: #### C BC #### [address] Neutrophils (Bld) [#/Vol] 5.8 10*3/uL Normal 1.8-7.7 [facility] Comment on above: Performed By: #### C BC #### [address] Platelet mean volume (Bld) [Entitic vol] 7.8 fL Normal 6.3-10.7 [facility] Comment on above: Performed By: #### C BC #### [address] Platelets (Bld) [#/Vol] 238 10*3/uL Normal 150-450 [facility] Comment on above: Performed By: #### C BC #### [address] WBC (Bld) [#/Vol] 8.4 10*3/uL Normal 3.8-11.6 [facility] Comment on above: Performed By: #### C BC #### [address] [address] [place] Basophils/100 WBC (Bld) 1.1 % Normal . [facility] Comment on above: Performed By: #### C BC #### [place] [address] [place] Eosinophils/100 WBC (Bld) 1.7 % Normal . [facility] Comment on above: Performed By: #### C BC #### [place] [address] [place] Lymphocytes/100 WBC (Bld) 19.4 % Normal . [facility] Comment on above: Performed By: #### C BC #### [address] Mean Corpuscular HGB Conc 33.1 g/dL Normal 32.0-35.0 [facility] Comment on above: Performed By: #### C BC #### [address] Monocytes/100 WBC (Bld) 8.3 % Normal . [facility] Comment on above: Performed By: #### C BC #### [address] Neutrophils/100 WBC (Bld) 69.5 % Normal . [facility] Comment on above: Performed By: #### C BC #### [address] NRBC% 0.1 /100{WBC} Normal 0-0.5 [facility] Comment on above: Performed By: #### C BC #### [address] RBC (Bld) [#/Vol] 4.95 10*6/uL Normal 3.60-5.00 [facility] Comment on above: Performed By: #### C BC #### [address] Comprehensive Metabolic Pane heladio 12-11-2024 Albumin [Mass/Vol] 4.6 g/dL Normal 3.5-5.7 [facility] Comment on above: Performed By: #### L DH, CMP #### [address] Albumin/Globulin [Mass ratio] 1.6 {ratio} Normal [facility] Comment on above: Performed By: #### L BRODIE, CMP #### [address] ALP [Catalytic activity/Vol] 54 U/L Normal 34-104 [facility] Comment on above: Performed By: #### L BRODIE, CMP #### [address] ALT [Catalytic activity/Vol] 13 U/L Normal 7-52 [facility] Comment on above: Performed By: #### L BRODIE, CMP #### [address] Anion gap [Moles/Vol] 16.7 mmol/L High 6.0-15.0 [facility] Comment on above: Performed By: #### L BRODIE, CMP #### [address] AST [Catalytic activity/Vol] 12 U/L Low 13-39 [facility] Comment on above: Performed By: #### L BRODIE, CMP #### [address] Bilirubin [Mass/Vol] 1.2 mg/dL High 0.3-1.0 [facility] Comment on above: Performed By: #### L BRODIE, CMP #### [address] Calcium [Mass/Vol] 9.8 mg/dL Normal 8.6-10.3 [facility] Comment on above: Performed By: #### L BRODIE, CMP #### [place] [address] [place] Chloride [Moles/Vol] 101 mmol/L Normal 98-107 [facility] Comment on above: Performed By: #### L BRODIE, CMP #### [address] CO2 [Moles/Vol] 26.3 mmol/L Normal 21.0-31.0 [facility] Comment on above: Performed By: #### L BRODIE, CMP #### [place] [address] [place] CREATININE CLR CALC PHARMACY 53.08 Normal [facility] Comment on above: Performed By: #### L BRODIE, CMP #### [address] Globulin (S) [Mass/Vol] 2.9 g/dL Normal [facility] Comment on above: Performed By: #### L BRODIE, CMP #### [address] Glucose [Mass/Vol] 245 mg/dL High 70-100 [facility] Comment on above: Random Glucose Refer ence Range is dependent on time and content of last meal. Glucose of more than 200 mg/dL in a nonstressed, ambulatory subject supports the diagnosis of Diabetes Mellitus. ADA recommended reference range Result Comment: [place] Glucose Reference Range is dependent on time and content of last meal. Glucose of more than 200 mg/dL in a nonstressed, ambulatory subject supports the diagnosis of Diabetes Mellitus. ADA recommended reference range Performed By: #### L BRODIE CMP #### [address] Protein [Mass/Vol] 7.5 g/dL Normal 6.4-8.9 [facility] Comment on above: Performed By: #### L BRODIE CMP #### [address] Sodium [Moles/Vol] 140 mmol/L Normal 136-145 [facility] Comment on above: Performed By: #### L BRODIE, CMP #### [place] [address] [place] Urea nitrogen [Mass/Vol] 21 mg/dL Normal 7-25 [facility] Comment on above: Performed By: #### L BRODIE, CMP #### [address] Creatinine [Mass/Vol] 0.96 mg/dL Normal 0.60-1.20 [facility] Comment on above: Performed By: #### L BRODIE, CMP #### [place] [address] [place] GFR/1.73 sq M.predicted MDRD (S/P/Bld) [Vol rate/Area] mL/min/{1.73_m2} Normal [facility] Comment on above: Performed By: #### L , CMP #### [facility] [address] [id number] [facility] Potassium [Moles/Vol] 4.0 mmol/L Normal 3.5-5.1 [facility] Comment on above: Performed By: #### L , CMP #### [facility] [address] [id number] [facility] Comprehensive metabolic pane heladio 12-11-2024 Creatinine (U) [Mass/Vol] 0.96 mg/dL 0.60 - 1.20 mg/dL [facility] ESTIMATED GFR mL/Min [facility] Interpretation and review of laboratory results Abnormal [facility] Potassium [Moles/Vol] 4 mmol/L 3.5 - 5.1 mmol/L [facility] Creatinine [Mass/volume] in Serum or PlasmaOrdered By: Rose Ohara on 12-11-2024 Creatinine [Mass/Vol] Creatinine [Mass/v olume] in Serum or Plasma 0.60-1.20 [facility] Eosinophils Auto (Bld) [#/Vo l]Ordered By: Rose Ohara on 12-11-2024 Eosinophils (Bld) [#/Vol] Automated eosinophil count 0.0-0.45 [facility] Eosinophils/100 WBC Auto (Bl d)Ordered By: Rose Ohara on 12-11-2024 Eosinophils/100 WBC (Bld) Automated eosinophil % . [facility] Erythrocyte distribution wid th Auto (RBC) [Ratio]Ordered By: Rose Ohara on 12-11-2024 Erythrocyte distribution width (RBC) [Ratio] Erythrocyte distribution width [Ratio] by Automated count High 11.9-15.3 [facility] Globulin Calc (S) [Mass/Vol] Ordered By: Rose Ohara on 12-11-2024 Globulin (S) [Mass/Vol] Serum globulin measurement by calculation (mass/volume) [facility] Glucose [Mass/volume] in Ser um or PlasmaOrdered By: Rose Ohara on 12-11-2024 Glucose [Mass/Vol] Glucose [Mass/volume ] in Serum or Plasma High 70-100 [facility] Comment on above: ADA recommended refe rence rangeRandom Glucose Reference Range is dependent on time and content of last meal. Glucose of more than 200 mg/dL in a nonstressed, ambulatory subject supports the diagnosis of Diabetes Mellitus. Hematocrit Auto (Bld) [Volum e fraction]Ordered By: Rose Ohara on 12-11-2024 Hematocrit (Bld) [Volume fraction] Hematocrit [Volume Fraction] of Blood by Automated count 34.0-46.4 [facility] Hemoglobin [Mass/volume] in BloodOrdered By: Rose Ohara on 12-11-2024 Hemoglobin (Bld) [Mass/Vol] Hemoglobin [Mass/volume] in Blood 11.8-15.4 [facility] LDH Lactate Dehydrogenaseon 12-11-2024 LDH LACTATE DEHYDROGENASE 151 U/L Normal 140-271 [facility] Comment on above: Result Comment: PERF ORMED BY: [place] [address] PATHOLOGIST [employer] SANJUANITA GHOTRA M.D. Performed By: #### L , [facility] #### [address] Lactate dehydrogenase [Enzym atic activity/volume] in Serum or Plasma by Lactate to pyOrdered By: Rose Ohara on 12-11-2024 LDH Lactate to pyruvate reaction [Catalytic activity/Vol] Lactate dehydrogenase [Enzymatic activity/volume] in Serum or Plasma by Lactate to py 140-271 [facility] Leukocytes [#/volume] correc jin for nucleated erythrocytes in Blood by Automated counOrdered By: Rose Ohara on 12-11-2024 WBC corrected for nucl RBC Auto (Bld) [#/Vol] Leukocytes [#/volume] corrected for nucleated erythrocytes in Blood by Automated coun 3.8-11.6 [facility] Lymphocytes Auto (Bld) [#/Vo l]Ordered By: Rose Ohara on 12-11-2024 Lymphocytes (Bld) [#/Vol] Lymphocytes [#/volume] in Blood by Automated count 1.00-4.8 [facility] Lymphocytes/100 WBC Auto (Bl d)Ordered By: Rose Ohara on 12-11-2024 Lymphocytes/100 WBC (Bld) Lymphocytes/100 leukocytes in Blood by Automated count . [facility] MCH Auto (RBC) [Entitic mass ]Ordered By: Rose Ohara on 12-11-2024 MCH (RBC) [Entitic mass] MCH [Entitic mass] by Automated count 24.7-34.3 [facility] MCHC Auto (RBC) [Mass/Vol]Or dered By: Rose Ohara on 12-11-2024 MCHC (RBC) [Mass/Vol] MCHC [Mass/volume] by Automated count 32.0-35.0 [facility] MCV Auto (RBC) [Entitic vol] Ordered By: Rose Ohara on 12-11-2024 MCV (RBC) [Entitic vol] MCV [Entitic volume] by Automated count 80-100 [facility] Monocytes Auto (Bld) [#/Vol] Ordered By: Rose Ohara on 12-11-2024 Monocytes (Bld) [#/Vol] Automated blood monocyte count 0.0-0.8 [facility] Monocytes/100 WBC Auto (Bld) Ordered By: Rose Ohara on 12-11-2024 Monocytes/100 WBC (Bld) Automated monocyte % . [facility] Neutrophils Auto (Bld) [#/Vo l]Ordered By: Rose Ohara on 12-11-2024 Neutrophils (Bld) [#/Vol] Neutrophils [#/volume] in Blood by Automated count 1.8-7.7 [facility] Neutrophils/100 WBC Auto (Bl d)Ordered By: Rose Ohara on 12-11-2024 Neutrophils/100 WBC (Bld) Automated neutrophil % . [facility] No Panel Informationon 12-11 [facility] No Panel InformationOrdered By: Rose Ohara on 12-11-2024 Estimated GFR (CKD-EPI) > 60.0 mL/Min [facility] Creatinine Clearance (Chem 53.08 [facility] Nucleated erythrocytes [Pres ence] in Blood by Automated countOrdered By: Rose Ohara on 12-11-2024 Nucleated RBC Auto Ql (Bld) Nucleated erythrocytes [Presence] in Blood by Automated count 0-0.5 [facility] Platelet mean volume Auto (B ld) [Entitic vol]Ordered By: Rose Ohara on 12-11-2024 Platelet mean volume (Bld) [Entitic vol] Platelet mean volume [Entitic volume] in Blood by Automated count 6.3-10.7 [facility] Platelets Auto (Bld) [#/Vol] Ordered By: Rose Ohara on 12-11-2024 Platelets (Bld) [#/Vol] Platelets [#/volume] in Blood by Automated count 150-450 [facility] Potassium [Moles/volume] in Serum or PlasmaOrdered By: Rose Ohara on 12-11-2024 Potassium [Moles/Vol] Potassium [Moles/v olume] in Serum or Plasma 3.5-5.1 [facility] Protein [Mass/volume] in Ser um or PlasmaOrdered By: Rose Ohara on 12-11-2024 Protein [Mass/Vol] Protein [Mass/volume ] in Serum or Plasma 6.4-8.9 [facility] RBC Auto (Bld) [#/Vol]Ordere d By: Rose Ohara on 12-11-2024 RBC (Bld) [#/Vol] Erythrocytes [#/volu me] in Blood by Automated count 3.60-5.00 [facility] Serum or plasma albumin/glob ulin mass ratioOrdered By: Rose Ohara on 12-11-2024 Albumin/Globulin [Mass ratio] Serum or plasma albumin/globulin mass ratio [facility] Serum or plasma anion gap de terminationOrdered By: Rose Ohara on 12-11-2024 Anion gap [Moles/Vol] Serum or plasma an ion gap determination High 6.0-15.0 [facility] Sodium [Moles/volume] in Ser um or PlasmaOrdered By: Rose Ohara on 12-11-2024 Sodium [Moles/Vol] Sodium [Moles/volume ] in Serum or Plasma 136-145 [facility] Urea nitrogen [Mass/volume] in Serum or PlasmaOrdered By: Rose Ohara on 12-11-2024 Urea nitrogen [Mass/Vol] Urea nitrogen [Mass/volume] in Serum or Plasma 7-25 [facility] WBC Auto (Bld) [#/Vol]Ordere d By: Rose Ohara on 12-11-2024 WBC (Bld) [#/Vol] Leukocytes [#/volume ] in Blood by Automated count 3.8-11.6 [facility] HGB A1C (GLYCO-HGB)on 2023 Glucose [Mass/Vol] 197 mg/dL Normal [facility] Comment on above: Performed By: #### 3 016-3, HA1C #### [facility] ([id number]) [address] [facility], [address] [address] HbA1c (Bld) [Mass fraction] 8.5 % High 4.4-5.6 [facility] Comment on above: Result Comment: NOTE ADA Guidelines Result HgbA1c Normal : less than 5.7 % Prediabetes : 5.7 % to 6.4 % Diabetes : > 6.4 % Use with caution in patients with abnormal hemoglobin variants as the half-life of red blood cells and in vivo glycation rates are affected. Performed By: #### 3 016-3, HA1C #### [facility] ([id number]) [facility], [address] [address] MICROALBUMIN - ALBUMIN:CREAT ININE URINE RATIOon 07-16-2024 ALB/CREAT RATIO NOT CALCULATED Normal 0.0-30.0 [facility] Comment on above: Result Comment: Result for Albumin/Creatinine Ratio cannot be reliably calculated because urine albumin and or urine creatinine is below the detection limit of the assay. Performed By: #### C SHANTE, 55813-8, 95854-1, 7-1, 3084-1, 2731-8, 48631-7 #### [facility] ([id number]) [facility], [address] [address] Albumin DL <= 20 mg/L (U) [Mass/Vol] mg/dL Normal 0.0-1.9 [facility] Comment on above: Performed By: #### C SHANTE, 35417-2, 50753-5, 2777-1, 3084-1, 2731-8, 64497-0 #### [facility] ([id number]) [address] [facility], [address] [place] [address] URINE CREAT 74.02 mg/dL Normal [facility] Comment on above: Performed By: #### [place], [address]-8, 74005-5, 2777-1, 3084-1, 2731-8, 22906-0 #### [facility] ([id number]) [address] [facility], [address] [place] [address] TSH Qnon 07-16-2024 TSH 1.00 uIU/mL Normal 0.49-4.67 [facility] Comment on above: Performed By: #### 3 016-3, HA1C #### [facility] ([id number]) [address] [facility], [address] [place] [address] Office Visiton 06-22-2024 Follow-up visit [id number] Renee Mcneal 1950 F Date Provider Department Center 06/22/2024 3848-ROBERT LONG KIT [place] Family History Problem Relation Age of Onset Coronary artery disease Father Heart attack Father Family Status - Relation Status Age at Father Level of Service:91525 [place] OFFICE/OUTPATIENT ESTABLISHED MOD MDM 30 MIN Reason for Visit and Comments: Follow-up [383473] - 1 mo follow up Concerns: Lower extremity edema in left leg. No further cardiac symptoms/concerns. 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 [facility] Office Visiton 05-18-2024 Follow-up visit [id number] Renee Mcneal 1950 F Date Provider Department Center 05/18/2024 [facility] Family History Problem Relation Age of Onset Coronary artery disease Father Heart attack Father Family Status - Relation Status Age at Father Level of Service:64071 [place] OFFICE/OUTPATIENT ESTABLISHED MOD MDM 30 MIN [facility] 05-15-2024 36 Per alg pt go to er she chose to come in this week [facility] 04-27-2024 36 I spoke with patient to make her aware of normal potassium level now. Asked her to check he BP 1-2 hours after meds to make sure it doesn't go higher without taking spironolactone now. She said when she had her echo it was 120/60. [facility] 04-20-2024 29 Addended by: HERRERA STOVER on: 04/20/2024 12:56 PM Modules accepted: Orders [facility] 04-20-[address] Long stopp ed spironolactone and wants repeat BMP in 1 week. I spoke with patient and made her aware. Order faxed to [facility]. [facility] 36on 04-17-2024 36 Called patient to tejal sales her aware of normal EF and no valvular abnormalities on her echo. Noticed her potassium is still elevated at 5.6 after she stopped potassium last week. I asked Dr. Long for recommendations. [facility] 36on 04-03-2024 36 Regarding lab result s from 04/03/2024: I just spoke with patient to make sure she had cut back potassium to 10mEq's daily. She told me she had given me the wrong medication list when she was here in the office. I asked her to stop the potassium completely and have repeat BMP in about 1 week. Order faxed to [facility]. [facility] Telephoneon 04-03-2024 Telephone [id number] ElizabetRenee joleen Talavera 1950 F Date Provider Department Center 04/03/2024 928-HERRERA STOVER Family History Problem Relation Age of Onset Coronary artery disease Father Heart attack Father Family Status - Relation Status Age at Father [facility] Office Visiton 03-23-2024 Follow-up visit [id number] ElizabetRenee 1950 F Date Provider Department Center 03/23/2024 [facility]8-ROBERT LONG Family History Problem Relation Age of Onset Coronary artery disease Father Heart attack Father Family Status - Relation Status Age at Father Level of Service:87555 [place] OFFICE/OUTPATIENT ESTABLISHED MOD MDM 30 MIN [facility] COMPREHENSIVE METABOLIC PANE Heladio 01-11-2024 Albumin [Mass/Vol] 4.2 g/dL Normal 3.2-5.3 [facility] Comment on above: Performed By: #### [place], [address]-8, 58256-6, 2777-1, 3084-1, 2731-8, 16575-2 #### [facility] ([id number]) [address] [facility], [address] [place] [address] ALP [Catalytic activity/Vol] 74 U/L Normal 39-130 [facility] Comment on above: Performed By: #### [place], 30176-0, 66736-8, 2777-1, 3084-1, 2731-8, 23534-8 #### [facility] ([id number]) [address], [address] [place] [address] ALT [Catalytic activity/Vol] 16 U/L Normal 0-31 [facility] Comment on above: Performed By: #### [place], 58502-3, 47909-5, 2777-1, 3084-1, 2731-8, 69469-2 #### [facility] ([id number]) [address], [address] [place] [address] Anion gap [Moles/Vol] 11 mmol/L Normal 5-15 [facility] Comment on above: Performed By: #### C MP, 68085-4, 56018-5, 7-1, 3084-1, 2731-8, 34915-1 #### [facility] ([id number]) [address], [address] [place] [address] AST [Catalytic activity/Vol] 13 U/L Normal 0-41 [facility] Comment on above: Performed By: #### C MP, 37906-0, 93761-4, 2777-1, 3084-1, 2731-8, 31277-6 #### [facility] ([id number]) [address], [address] [place] [address] Bilirubin [Mass/Vol] 0.9 mg/dL Normal 0.3-1.2 [facility] Comment on above: Performed By: #### C MP, 36179-9, 67633-8, 2777-1, 3084-1, 2731-8, 68387-5 #### [facility] ([id number]) [address], [address] [place] [address] Calcium [Mass/Vol] 9.7 mg/dL Normal 8.5-10.5 [facility] Comment on above: Performed By: #### C MP, 93082-2, 15688-7, 2777-1, 3084-1, 2731-8, 66473-9 #### [facility] ([id number]) [address], [address] [place] [address] Chloride [Moles/Vol] 106 mmol/L Normal 98-109 [facility] Comment on above: Performed By: #### C MP, 64281-4, 62540-0, 2777-1, 3084-1, 2731-8, 95325-6 #### [facility] ([id number]) [address], [address] [place] [address] CO2 [Moles/Vol] 24 mmol/L Normal 22-32 [facility] Comment on above: Performed By: #### C SHANTE, 65026-0, 01147-7, 7-1, 3084-1, 2731-8, 86780-3 #### [facility] ([id number]) [address], [address] [place] [address] Creatinine [Mass/Vol] 0.84 mg/dL Normal 0.40-1.00 [facility] Comment on above: Result Comment: METH OD TRACEABLE TO IDMS STANDARD Performed By: #### C SHANTE, 67406-4, 68764-5, 7-1, 3084-1, 2731-8, 40179-8 #### [facility] ([id number]) [address], [address] [place] [address] GFR/1.73 sq M.predicted among non-blacks MDRD (S/P/Bld) [Vol rate/Area] 73 mL/min/{1.73_m2} Normal >59 [facility] Comment on above: Result Comment: Reported eGFR is based on the CKD-EPI 2020 equation that does not use a race coefficient. Performed By: #### C MP, 64284-8, 94521-6, 2777-1, 3084-1, 2731-8, 54275-9 #### [facility] ([id number]) [address], [address] [place] [address] Glucose [Mass/Vol] 132 mg/dL High 65-99 [facility] Comment on above: Performed By: #### C SHANTE, 84017-5, 19206-2, 2777-1, 3084-1, 2731-8, 75345-6 #### [facility] ([id number]) [address], [address] [place] [address] Potassium [Moles/Vol] 4.9 mmol/L Normal 3.5-5.0 [facility] Comment on above: Performed By: #### C SHANTE, 27967-8, 41916-3, 7-1, 3084-1, 2730-8, 74327-2 #### [facility] ([id number]) [address], [address] [place] [address] Protein [Mass/Vol] 6.9 g/dL Normal 6.0-8.0 [facility] Comment on above: Performed By: #### C SHANTE, 60572-8, 90714-0, 7-1, 3084-1, 2730-8, 48819-3 #### [facility] ([id number]) [address], [address] [place] [address] Sodium [Moles/Vol] 141 mmol/L Normal 134-146 [facility] Comment on above: Performed By: #### C SHANTE, 74202-0, 25470-7, 2777-1, 3084-1, 2731-8, 51005-3 #### [facility] ([id number]) [address], [address] [place] [address] Urea nitrogen [Mass/Vol] 21 mg/dL Normal 5-27 [facility] Comment on above: Performed By: #### C SHANTE, 35964-5, 59756-7, 2777-1, 3084-1, 2731-8, 39479-1 #### [facility] ([id number]) [address], [address] [place] [address] HGB A1C (GLYCO-HGB)on 2023 Glucose [Mass/Vol] 171 mg/dL Normal [facility] Comment on above: Performed By: #### Andres FREY, 51638-6, 06423-9, 2776-, 3083-, 2730-8, 42322-8 #### [facility] ([id number]) [address], [address] [place] [address] HbA1c (Bld) [Mass fraction] 7.6 % High 4.4-5.6 [facility] Comment on above: Result Comment: NOTE ADA Guidelines Result HgbA1c Normal : less than 5.7 % Prediabetes : 5.7 % to 6.4 % Diabetes : > 6.4 % Use with caution in patients with abnormal hemoglobin variants as the half-life of red blood cells and in vivo glycation rates are affected. Performed By: #### C SHANTE, 30659-1, 85968-8, 2776-, 3083-, 2730-8, 77228-6 #### [facility] ([id number]) [address], [address] [place] [address] Lipid 1996 panelon 4 Cholesterol [Mass/Vol] 104 mg/dL Low 150-200 [facility] Comment on above: Performed By: #### C SHANTE, 77578-5, 97978-6, 2776-1, 3084-1, 273-8, 46253-2 #### [facility] ([id number]) [address], [address] [place] [address] Cholesterol in HDL [Mass/Vol] 46 mg/dL Normal >39 [facility] Comment on above: Result Comment: HDL <40 mg/dL - High Risk HDL > or = 40mg/dL- Desirable HDL >60 mg/dL - Negative Risk Performed By: #### Andres FREY, 89149-1, 46809-9, 2777-1, 3084-1, 2731-8, 96604-6 #### [facility] ([id number]) [address] [facility] [address] [place] [address] Cholesterol in LDL [Mass/Vol] 19 mg/dL Normal <130 [facility] Comment on above: Result Comment: LDL <100 mg/dL - Desirable LDL >160 mg/dL - High Risk Performed By: #### Andres FREY, 95889-2, 81974-9, 2777-1, 3084-1, 2731-8, 46412-0 #### [facility] ([id number]) [address] [address] [place] [address] Cholesterol in VLDL [Mass/Vol] 39 mg/dL High 0-30 [facility] Comment on above: Performed By: ###[place], [address]-9, 67137-9, 2777-1, 3084-1, 2731-8, 33574-5 #### [facility] ([id number]) [address] [address] [place] [address] CHOLESTEROL:HDL 2.3 Normal 1.0-5.0 [facility] Comment on above: Performed By: ###[place], [address]-5, 09135-5, 2777-1, 3084-1, 2731-8, 95687-2 #### [facility] ([id number]) [address] [address] [place] [address] Triglyceride [Mass/Vol] 194 mg/dL High 27-150 [facility] Comment on above: Performed By: #### C SHANTE, 96560-4, 52621-8, 2777-1, 3084-1, 2731-8, 76992-9 #### [facility] ([id number]) [address], [address] [place] [address] MAGNESIUMon 01-11-2024 Magnesium [Mass/Vol] 1.7 mg/dL Low 1.8-2.6 [facility] Comment on above: Performed By: #### C SHANTE, 50986-4, 49087-2, 7-1, 3084-1, 2731-8, 58828-1 #### [facility] ([id number]) [address], [address] [place] [address] PHOSPHORUSon 01-11-2024 Phosphate [Mass/Vol] 3.7 mg/dL Normal 2.4-4.9 [facility] Comment on above: Performed By: #### C SHANTE, 45395-5, 41957-6, 7-1, 3084-1, 2731-8, 96990-3 #### [facility] ([id number]) [address], [address] [place] [address] Parathyrin.intact [Mass/Vol] on 01-11-2024 PTH INTACT 61 pg/mL Normal 12-88 [facility] Comment on above: Performed By: #### C SHANTE, 23240-0, 54136-5, 7-1, 3084-1, 2731-8, 44767-8 #### [facility] ([id number]) [address], [address] [place] [address] URIC ACIDon 01-11-2024 Urate [Mass/Vol] 6.6 mg/dL Normal 2.6-7.2 [facility] Comment on above: Performed By: #### C SHANTE, 62627-3, 96118-7, 2777-1, 3084-1, 2731-8, 80040-7 #### [facility] ([id number]) [address] [place] [address], [address] [place] [address] Vitamin D+Metabolites [Mass/ Vol]on 01-11-2024 VITAMIN D 25 HYD TOT 11.1 ng/mL Low 30-100 [facility] Comment on above: Result Comment: Vitamin D status 25 [place] Vitamin D Deficiency <20 ng/mL Insufficiency 20-29 ng/mL Sufficiency 30-100 ng/mL Toxicity >100 ng/mL NOTE: A pediatric reference range has not been established by the pipeliner of this kit. The [place] [employer] recommends a Vitamin D level of = or >20ng/mL in infants and children. Performed By: #### C , 33675-4, 27679-9, 2777-1, 3084-1, 2731-8, 86816-6 #### [facility] ([id number]) [address] [place] [address], [address] [place] [address] Alanine aminotransferase [En zymatic activity/volume] in Serum or PlasmaOrdered By: Farhana Sotomayor on 12-13-2023 ALT [Catalytic activity/Vol] 12 U/L 7-52 [facility] Albumin [Mass/volume] in Ser um or Plasma by Bromocresol green (BCG) dye binding methoOrdered By: Farhana Sotomayor on 12-13-2023 Albumin BCG dye [Mass/Vol] 4.0 g/dL 3.5-5.7 [facility] Alkaline phosphatase [Enzyma tic activity/volume] in Serum or PlasmaOrdered By: Farhana Sotomayor on 12-13-2023 ALP [Catalytic activity/Vol] 55 U/L 34-104 [facility] Aspartate aminotransferase [ Enzymatic activity/volume] in Serum or PlasmaOrdered By: Farhana Sotomayor on 12-13-2023 AST [Catalytic activity/Vol] 11 U/L 13-39 [facility] Basophils Auto (Bld) [#/Vol] Ordered By: Farhana Sotomayor on 12-13-2023 Basophils (Bld) [#/Vol] 0.1 10*3/uL 0.0-0.2 [facility] Basophils/100 WBC Auto (Bld) Ordered By: Farhana Sotomayor on 12-13-2023 Basophils/100 WBC (Bld) 1.2 % . [facility] Bilirubin.total [Mass/volume ] in Serum or PlasmaOrdered By: Farhana Sotomayor on 12-13-2023 Bilirubin [Mass/Vol] 0.8 mg/dL 0.3-1.0 [facility] Calcium [Mass/volume] in Ser um or PlasmaOrdered By: Farhana Sotomayor on 12-13-2023 Calcium [Mass/Vol] 9.3 mg/dL 8.6-10.3 [facility] Carbon dioxide, total [Moles /volume] in Serum or PlasmaOrdered By: Farhana Sotomayor on 12-13-2023 CO2 [Moles/Vol] 26.9 mmol/L 21.0-31.0 [facility] Chloride [Moles/volume] in S marlena or PlasmaOrdered By: Farhana Sotomayor on 12-13-2023 Chloride [Moles/Vol] 103 mmol/L 98-107 [facility] Creatinine [Mass/volume] in Serum or PlasmaOrdered By: Farhana Sotomayor on 12-13-2023 Creatinine [Mass/Vol] 1.05 mg/dL 0.60-1.20 [facility] Eosinophils Auto (Bld) [#/Vo l]Ordered By: Farhana Sotomayor on 12-13-2023 Eosinophils (Bld) [#/Vol] 0.2 10*3/uL 0.0-0.45 [facility] Eosinophils/100 WBC Auto (Bl d)Ordered By: Farhana Sotomayor on 12-13-2023 Eosinophils/100 WBC (Bld) 2.4 % . [facility] Erythrocyte distribution wid th Auto (RBC) [Ratio]Ordered By: Farhana Sotomayor on 12-13-2023 Erythrocyte distribution width (RBC) [Ratio] 16.0 % 11.9-15.3 [facility] Globulin Calc (S) [Mass/Vol] Ordered By: Farhana Sotomayor on 12-13-2023 Globulin (S) [Mass/Vol] 2.7 g/dL [facility] Glucose [Mass/volume] in Ser um or PlasmaOrdered By: Farhana Sotomayor on 12-13-2023 Glucose [Mass/Vol] 135 mg/dL 70-100 [facility] Comment on above: ADA recommended refe rence rangeRandom Glucose Reference Range is dependent on time and content of last meal. Glucose of more than 200 mg/dL in a nonstressed, ambulatory subject supports the diagnosis of Diabetes Mellitus. Hematocrit Auto (Bld) [Volum e fraction]Ordered By: Farhana Sotomayor on 12-13-2023 Hematocrit (Bld) [Volume fraction] 35.5 % 34.0-46.4 [facility] Hemoglobin [Mass/volume] in BloodOrdered By: Farhana Sotomayor on 12-13-2023 Hemoglobin (Bld) [Mass/Vol] 11.5 g/dL 11.8-15.4 [facility] Lactate dehydrogenase [Enzym atic activity/volume] in Serum or Plasma by Lactate to pyOrdered By: Farhana Sotomayor on 12-13-2023 LDH Lactate to pyruvate reaction [Catalytic activity/Vol] 118 U/L 140-271 [facility] Leukocytes [#/volume] correc jin for nucleated erythrocytes in Blood by Automated counOrdered By: Farhana Sotomayor on 12-13-2023 WBC corrected for nucl RBC Auto (Bld) [#/Vol] 7.6 10*3/uL 3.8-11.6 [facility] Lymphocytes Auto (Bld) [#/Vo l]Ordered By: Farhana Sotomayor on 12-13-2023 Lymphocytes (Bld) [#/Vol] 1.9 10*3/uL 1.00-4.8 [facility] Lymphocytes/100 WBC Auto (Bl d)Ordered By: Farhana Sotomayor on 12-13-2023 Lymphocytes/100 WBC (Bld) 25.0 % . [facility] MCH Auto (RBC) [Entitic mass ]Ordered By: Farhana Sotomayor on 12-13-2023 MCH (RBC) [Entitic mass] 28.3 pg 24.7-34.3 [facility] MCHC Auto (RBC) [Mass/Vol]Or dered By: Farhana Sotomayor on 12-13-2023 MCHC (RBC) [Mass/Vol] 32.5 g/dL 32.0-35.0 [facility] MCV Auto (RBC) [Entitic vol] Ordered By: Farhana Sotomayor on 12-13-2023 MCV (RBC) [Entitic vol] 87.2 fL 80-100 [facility] Magnesium [Mass/volume] in S marlena or PlasmaOrdered By: Irma Mesa on 12-13-2023 Magnesium [Mass/Vol] 1.5 mg/dL 1.9-2.7 [facility] Monocytes Auto (Bld) [#/Vol] Ordered By: Farhana Sotomayor on 12-13-2023 Monocytes (Bld) [#/Vol] 0.6 10*3/uL 0.0-0.8 [facility] Monocytes/100 WBC Auto (Bld) Ordered By: Farhana Sotomayor on 12-13-2023 Monocytes/100 WBC (Bld) 8.3 % . [facility] Natriuretic peptide B [Mass/ Vol]Ordered By: Irma Mesa on 12-13-2023 Natriuretic peptide B (Bld) [Mass/Vol] 70.0 pg/mL 5-100 [facility] Neutrophils Auto (Bld) [#/Vo l]Ordered By: Farhana Sotomayor on 12-13-2023 Neutrophils (Bld) [#/Vol] 4.8 10*3/uL 1.8-7.7 [facility] Neutrophils/100 WBC Auto (Bl d)Ordered By: Farhana Sootmayor on 12-13-2023 Neutrophils/100 WBC (Bld) 63.1 % . [facility] No Panel InformationOrdered By: Farhana Sotomayor on 12-13-2023 Estimated GFR (CKD-EPI) 55.755 mL/Min [facility] Creatinine Clearance (Chem 51.93 [facility] Nucleated erythrocytes [Pres ence] in Blood by Automated countOrdered By: Farhana Sotomayor on 12-13-2023 Nucleated RBC Auto Ql (Bld) 0.0 /100{WBC} 0-0.5 [facility] Platelet mean volume Auto (B ld) [Entitic vol]Ordered By: Farhana Sotomayor on 12-13-2023 Platelet mean volume (Bld) [Entitic vol] 7.5 fL 6.3-10.7 [facility] Platelets Auto (Bld) [#/Vol] Ordered By: Farhana Sotomayor on 12-13-2023 Platelets (Bld) [#/Vol] 220 10*3/uL 150-450 [facility] Potassium [Moles/volume] in Serum or PlasmaOrdered By: Farhana Sotomayor on 12-13-2023 Potassium [Moles/Vol] 5.3 mmol/L 3.5-5.1 [facility] Protein [Mass/volume] in Ser um or PlasmaOrdered By: Farhana Sotomayor on 12-13-2023 Protein [Mass/Vol] 6.7 g/dL 6.4-8.9 [facility] RBC Auto (Bld) [#/Vol]Ordere d By: Farhana Sotomayor on 12-13-2023 RBC (Bld) [#/Vol] 4.07 10*6/uL 3.60-5.00 [facility] Serum or plasma albumin/glob ulin mass ratioOrdered By: Farhana Sotomayor on 12-13-2023 Albumin/Globulin [Mass ratio] 1.5 {ratio} [facility] Serum or plasma anion gap de terminationOrdered By: Farhana Sotomayor on 12-13-2023 Anion gap [Moles/Vol] 14.4 mmol/L 6.0-15.0 [facility] Sodium [Moles/volume] in Ser um or PlasmaOrdered By: Farhana Sotomayor on 12-13-2023 Sodium [Moles/Vol] 139 mmol/L 136-145 [facility] Urea nitrogen [Mass/volume] in Serum or PlasmaOrdered By: Farhana Sotomayor on 12-13-2023 Urea nitrogen [Mass/Vol] 27 mg/dL 7-25 [facility] WBC Auto (Bld) [#/Vol]Ordere d By: Farhana Quispejemimania on 12-13-2023 WBC (Bld) [#/Vol] 7.6 10*3/uL 3.8-11.6 [facility] Operative Reporton 4 Operative Report Indication for Surge ry Wound dehiscence left total knee Preoperative Diagnosis Wound dehiscence left total knee Postoperative Diagnosis Wound dehiscence left total knee Operation Debridement Lower Extremity, INCISION AND DRAINAGE LEFT KNEE, SECONDARY CLOSURE OF WOUND DEHISENCE, PREVENNA PLACMENT, Left, Knee Surgeon(s) Ronaldo JUAREZ, Aly Guzman (Surgeon - Primary) It Applications Manager Miguel HART, Dee Dee Hays (Sheet Metal Engineer) Anesthesia General Mile JUAREZ, Hank Richard (Mold Washer) Joleen Lala (Provider) Estimated Blood Loss 10 [...] stable condition. Will be discharged home with [place] and Keflex 500 mg p.o. 3 times daily x 7 days. Return the office in 1 week for wound check. Tourniquet Time NA Sponge/Needle Count correct Fluid Count as per chart Catheters, Drains, Tubes Prevena Electronically signed by Aly Higgins MD 11/09/23 17:29 EST Normal [facility] POC Glucose Randomon 024 Glucose [Mass/Vol] 118 mg/dL High 70-99 [facility] Comment on above: Performed By: #### C [id number] #### [address] [address] Glucose [Mass/Vol] 137 mg/dL High 70-99 [facility] Comment on above: Performed By: #### C [id number] #### [address] [address] Glucose [Mass/Vol] 138 mg/dL High 70-99 [facility] Comment on above: Performed By: #### C [id number] #### [address] [place] [address] Hgb/Hcton 10-04-2023 Hematocrit (Bld) [Volume fraction] 35.2 % Low 36.3-47.1 [facility] Comment on above: Performed By: #### H H #### [address] [place] [address] [place]: Alexey Rob MD Hemoglobin (Bld) [Mass/Vol] 11.5 g/dL Low 11.9-15.1 [facility] Comment on above: Performed By: #### H H #### [address] [place] [address] [place]: Alexey Rob MD OPERATIVE REPORTon OPERATIVE REPORT [address] [id number] OPERATIVE REPORT PATIENT NAME: TOSHA MCNEAL : 1950 [facility] REC NO: [id number] ROOM: 0331 ACCOUNT NO: [id number] ADMIT DATE: 10/03/2023 PROVIDER: Aly Higgins DATE [...] to go with a 32-mm patellar dome. [place] holes were placed. Knee was then cleansed [...] layer was then closed with #1 Vicryl elmnzl-wa-rbfha sutures over two Hemovac drains. Vancomycin powder [...] to Recovery in a stable condition. ALY LeyvaPablo HIGGINS PH/[id number]_T Doc#: [id number] CC: Normal [facility] MRSA, DNA, Nasalon 3 MRSA, DNA, Nasal Negative Normal NEG [facility] Comment on above: Result Comment: [facility]: MRSA DNA not detected by nucleic acid amplification. Results should be used as an adjunct to nosocomial control efforts to identify patients needing enhanced precautions. The test is not intended to identify patients with staphylococcal infections. Results should not be used to guide or monitor treatment for MRSA infections. Performed By: #### [facility] #### [address] [place], [place] [id number] [place]: Jose Miguel Davis MD [facility] [address] [place] [address] [place]: Alexey Rob MD Basic Metabolic Profon 09-08 Anion gap [Moles/Vol] 12 mmol/L Normal 9-17 [facility] Comment on above: Performed By: #### B MP, CDP #### [facility] [address] [place] [address] [place]: Alexey Rob MD BUN/CRE Ratio 35 High 9-20 [facility] Comment on above: Performed By: #### B SHANTE, CDP #### [facility] [address] [place], [place] [id number] [place]: Alexey Rob MD Calcium [Mass/Vol] 9.9 mg/dL Normal 8.6-10.4 [facility] Comment on above: Performed By: #### B SHANTE, CDP #### [facility] [address] [place], [place] [phone] [place]: Alexey Rob MD Chloride [Moles/Vol] 99 mmol/L Normal 98-107 [facility] Comment on above: Performed By: #### B SHANTE, CDP #### [facility] [address] [place] [address] [place]: Alexey Rob MD CO2 [Moles/Vol] 27 mmol/L Normal 20-31 [facility] Comment on above: Performed By: #### B SHANTE, CDP #### [facility] [address] [place], [place] [id number] [place]: Alexey Rob MD Creatinine [Mass/Vol] 1.0 mg/dL High 0.5-0.9 [facility] Comment on above: Performed By: #### B SHANTE, CDP #### [facility] [address] [place], [place] [id number] [place]: Alexey Rob MD GFR/1.73 sq M.predicted among non-blacks MDRD (S/P/Bld) [Vol rate/Area] 59 mL/min/{1.73_m2} Low >60 [facility] Comment on above: Result Comment: These results [...] Performed By: #### B SHANTE, CDP #### [facility] [address] [place], [place] [phone] [place]: Alexey Rob MD Glucose [Mass/Vol] 126 mg/dL High 70-99 [facility] Comment on above: Performed By: #### B SHANTE, CDP #### [facility] [address] [place], [place] [id number] [place]: Alexey Rob MD Potassium [Moles/Vol] 4.9 mmol/L Normal 3.7-5.3 [facility] Comment on above: Performed By: #### B SHANTE, CDP #### [facility] [address] [place], [place] [id number] [place]: Alexey Rob MD Sodium [Moles/Vol] 138 mmol/L Normal 135-144 [facility] Comment on above: Performed By: #### B SHANTE, CDP #### [address] [place], [place] [id number] [place]: Alexey Rob MD Urea nitrogen [Mass/Vol] 35 mg/dL High 8-23 [facility] Comment on above: Performed By: #### B SHANTE, CDP #### [facility] [address] [place], [place] [phone] [place]: Alexey Rob MD CBC with Diffon 09-08-2023 Abs. Basophil 0.07 k/uL Normal 0.00-0.20 [facility] Comment on above: Performed By: #### B SHANTE, CDP #### [facility] [address] [place] [address] [place]: Alexey Rob MD Abs.Imm.Granulocyte 0.04 k/uL Normal 0.00-0.30 [facility] Comment on above: Performed By: #### B SHANTE, CDP #### [facility] [address] [place], [place] [id number] [place]: Alexey Rob MD Abs.Neutrophil (Seg) 5.10 k/uL Normal 1.50-8.10 [facility] Comment on above: Performed By: #### B MP, CDP #### [address] [place], [place] [phone] [place]: Alexey Rob MD Basophils/100 WBC (Bld) 1 % Normal 0-2 [facility] Comment on above: Performed By: #### B MP, CDP #### [address] [place], [place] [phone] [place]: Alexey Rob MD Eosinophils (Bld) [#/Vol] 0.13 10*3/uL Normal 0.00-0.44 [facility] Comment on above: Performed By: #### B SHANTE, CDP #### [address] [place], [place] [phone] [place]: Alexey Rob MD Eosinophils/100 WBC (Bld) 2 % Normal 1-4 [facility] Comment on above: Performed By: #### B SHANTE, CDP #### [address] [place], [place] [phone] [place]: Alexey Rob MD Erythrocyte distribution width (RBC) [Ratio] 13.6 % Normal 11.8-14.4 [facility] Comment on above: Performed By: #### B MP, CDP #### [address] [place], [place] [id number] [place]: Alexey Rob MD Hematocrit (Bld) [Volume fraction] 44.2 % Normal 36.3-47.1 [facility] Comment on above: Performed By: #### B MP, CDP #### [address] [place], [place] [phone] [place]: Alexey Rob MD Hemoglobin (Bld) [Mass/Vol] 14.1 g/dL Normal 11.9-15.1 [facility] Comment on above: Performed By: #### B SHANTE, CDP #### [facility] [address] [place], [place] [phone] [place]: Alexey Rob MD Immature granulocytes/100 WBC (Bld) 1 % High 0 [facility] Comment on above: Performed By: #### B SHANTE, CDP #### [facility] [address] [place], [place] [phone] [place]: Alexey Rob MD Lymphocytes (Bld) [#/Vol] 1.87 10*3/uL Normal 1.10-3.70 [facility] Comment on above: Performed By: #### B SHANTE, CDP #### [address] [place], [place] [phone] [place]: Alexey Rob MD Lymphocytes/100 WBC (Bld) 24 % Normal 24-43 [facility] Comment on above: Performed By: #### B SHANTE, CDP #### [address] [place], [place] [phone] [place]: Alexey Rob MD MCH (RBC) [Entitic mass] 29.5 pg Normal 25.2-33.5 [facility] Comment on above: Performed By: #### B SHANTE, CDP #### [facility] [address] [place] [address] [address] [place], [place] [phone] [place]: Alexey Rob MD MCHC (RBC) [Mass/Vol] 31.9 g/dL Normal 28.4-34.8 [facility] Comment on above: Performed By: #### B SHANTE, CDP #### [address] [place] [address] [place]: Alexey Rob MD MCV (RBC) [Entitic vol] 92.5 fL Normal 82.6-102.9 [facility] Comment on above: Performed By: #### B MP, CDP #### [facility] [address] [place], [place] [phone] [place]: Alexey Rob MD Monocytes (Bld) [#/Vol] 0.75 10*3/uL Normal 0.10-1.20 [facility] Comment on above: Performed By: #### B MP, CDP #### [facility] [address] [place], [place] [phone] [place]: Alexey Rob MD Monocytes/100 WBC (Bld) 9 % Normal 3-12 [facility] Comment on above: Performed By: #### B MP, CDP #### [address] [place], [place] [phone] [place]: Alexey Rob MD Neutrophil (Seg) 63 % Normal 36-65 [facility] Comment on above: Performed By: #### B MP, CDP #### [address] [place], [place] [phone] [place]: Alexey Rob MD NRBC Automated 0.0 per 100 WBC Normal 0.0 [facility] Comment on above: Performed By: #### B MP, CDP #### [address] [place], [place] [phone] [place]: Alexey Rob MD Platelet mean volume (Bld) [Entitic vol] 9.6 fL Normal 8.1-13.5 [facility] Comment on above: Performed By: #### B MP, CDP #### [address] [place], [place] [phone] [place]: Alexey Rob MD Platelets (Bld) [#/Vol] 205 10*3/uL Normal 138-453 [facility] Comment on above: Performed By: #### B MP, CDP #### [address] [place] [address] [place]: Alexey Rob MD RBC (Bld) [#/Vol] 4.78 10*6/uL Normal 3.95-5.11 [facility] Comment on above: Performed By: #### B MP, CDP #### [facility] [address] [place] [address] [place] [address] [place]: Alexey Rob MD WBC (Bld) [#/Vol] 8.0 10*3/uL Normal 3.5-11.3 [facility] Comment on above: Performed By: #### B MP, CDP #### [address] [place] [address] [place]: Alexey Rob MD MRSA, DNA, Nasalon 3 Specimen Description .NASAL SWAB Normal [facility] Comment on above: Performed By: #### M RSANO #### [address] [id number] [place]: Jose Miguel Davis MD [address] [place] [address] [place]: Alexey Rob MD Type + Screenon 09-08-2023 Type + Screen Sample Expiration 10/06/2023,2359 Arm Band Number [id number] ABO/Rh(D) A POSITIVE Antibody Screen NEGATIVE Normal [facility] Comment on above: Performed By: #### T YS #### [facility] [address] [place] [address] [place] [address] [place]: Alexey Rob MD Alanine aminotransferase [En zymatic activity/volume] in Serum or PlasmaOrdered By: Rose Ohara on 08-09-2023 ALT [Catalytic activity/Vol] 13 U/L [facility] Albumin [Mass/volume] in Ser um or Plasma by Bromocresol green (BCG) dye binding methoOrdered By: Rose Ohara on 08-09-2023 Albumin BCG dye [Mass/Vol] 4.5 g/dL 3.5-5.7 [facility] Alkaline phosphatase [Enzyma tic activity/volume] in Serum or PlasmaOrdered By: Rsoe Ohara on 08-09-2023 ALP [Catalytic activity/Vol] 48 U/L 34-104 [facility] Aspartate aminotransferase [ Enzymatic activity/volume] in Serum or PlasmaOrdered By: Rose Ohara on 08-09-2023 AST [Catalytic activity/Vol] 11 U/L 13-39 [facility] Basophils Auto (Bld) [#/Vol] Ordered By: Rose Ohara on 08-09-2023 Basophils (Bld) [#/Vol] 0.1 10*3/uL 0.0-0.2 [facility] Basophils/100 WBC Auto (Bld) Ordered By: Rose Ohara on 08-09-2023 Basophils/100 WBC (Bld) 1.3 % . [facility] Bilirubin.total [Mass/volume ] in Serum or PlasmaOrdered By: Rose Ohara on 08-09-2023 Bilirubin [Mass/Vol] 1.1 mg/dL 0.3-1.0 [facility] Calcium [Mass/volume] in Ser um or PlasmaOrdered By: Rose Ohara on 08-09-2023 Calcium [Mass/Vol] 9.8 mg/dL 8.6-10.3 [facility] Carbon dioxide, total [Moles /volume] in Serum or PlasmaOrdered By: Rose Ohara on 08-09-2023 CO2 [Moles/Vol] 27.9 mmol/L 21.0-31.0 [facility] Chloride [Moles/volume] in S marlena or PlasmaOrdered By: Rose Ohara on 08-09-2023 Chloride [Moles/Vol] 104 mmol/L 98-107 [facility] Creatinine [Mass/volume] in Serum or PlasmaOrdered By: Rose Ohara on 08-09-2023 Creatinine [Mass/Vol] 0.86 mg/dL 0.60-1.20 [facility] Eosinophils Auto (Bld) [#/Vo l]Ordered By: Rose Ohara on 08-09-2023 Eosinophils (Bld) [#/Vol] 0.1 10*3/uL 0.0-0.45 [facility] Eosinophils/100 WBC Auto (Bl d)Ordered By: Rose Ohara on 08-09-2023 Eosinophils/100 WBC (Bld) 1.9 % . [facility] Erythrocyte distribution wid th Auto (RBC) [Ratio]Ordered By: Rose Ohara on 08-09-2023 Erythrocyte distribution width (RBC) [Ratio] 14.5 % 11.9-15.3 [facility] Globulin Calc (S) [Mass/Vol] Ordered By: Rose Ohara on 08-09-2023 Globulin (S) [Mass/Vol] 2.5 g/dL [facility] Glucose [Mass/volume] in Ser um or PlasmaOrdered By: Rose Ohara on 08-09-2023 Glucose [Mass/Vol] 168 mg/dL 70-100 [facility] Comment on above: ADA recommended refe rence rangeRandom Glucose Reference Range is dependent on time and content of last meal. Glucose of more than 200 mg/dL in a nonstressed, ambulatory subject supports the diagnosis of Diabetes Mellitus. Hematocrit Auto (Bld) [Volum e fraction]Ordered By: Rose Ohara on 08-09-2023 Hematocrit (Bld) [Volume fraction] 41.7 % 34.0-46.4 [facility] Hemoglobin [Mass/volume] in BloodOrdered By: Rose Ohara on 08-09-2023 Hemoglobin (Bld) [Mass/Vol] 13.6 g/dL 11.8-15.4 [facility] Lactate dehydrogenase [Enzym atic activity/volume] in Serum or Plasma by Lactate to pyOrdered By: Rose Ohara on 08-09-2023 LDH Lactate to pyruvate reaction [Catalytic activity/Vol] 135 U/L 140-271 [facility] Leukocytes [#/volume] correc jin for nucleated erythrocytes in Blood by Automated counOrdered By: Rose Ohara on 08-09-2023 WBC corrected for nucl RBC Auto (Bld) [#/Vol] 6.5 10*3/uL 3.8-11.6 [facility] Lymphocytes Auto (Bld) [#/Vo l]Ordered By: Rose Ohara on 08-09-2023 Lymphocytes (Bld) [#/Vol] 1.6 10*3/uL 1.00-4.8 [facility] Lymphocytes/100 WBC Auto (Bl d)Ordered By: Rose Ohara on 08-09-2023 Lymphocytes/100 WBC (Bld) 23.9 % . [facility] MCH Auto (RBC) [Entitic mass ]Ordered By: Rose Ohara on 08-09-2023 MCH (RBC) [Entitic mass] 29.6 pg 24.7-34.3 [facility] MCHC Auto (RBC) [Mass/Vol]Or dered By: Rose Ohara on 08-09-2023 MCHC (RBC) [Mass/Vol] 32.6 g/dL 32.0-35.0 [facility] MCV Auto (RBC) [Entitic vol] Ordered By: Rose Ohara on 08-09-2023 MCV (RBC) [Entitic vol] 90.7 fL 80-100 [facility] Monocytes Auto (Bld) [#/Vol] Ordered By: Rose Ohara on 08-09-2023 Monocytes (Bld) [#/Vol] 0.6 10*3/uL 0.0-0.8 [facility] Monocytes/100 WBC Auto (Bld) Ordered By: Rose Ohara on 08-09-2023 Monocytes/100 WBC (Bld) 9.2 % . [facility] Neutrophils Auto (Bld) [#/Vo l]Ordered By: Rose Ohara on 08-09-2023 Neutrophils (Bld) [#/Vol] 4.1 10*3/uL 1.8-7.7 [facility] Neutrophils/100 WBC Auto (Bl d)Ordered By: Rose Ohara on 08-09-2023 Neutrophils/100 WBC (Bld) 63.7 % . [facility] No Panel InformationOrdered By: Rose Ohara on 08-09-2023 Estimated GFR (CKD-EPI) > 60.0 mL/Min [facility] Creatinine Clearance (Chem 64.19 [facility] Nucleated erythrocytes [Pres ence] in Blood by Automated countOrdered By: Rose Ohara on 08-09-2023 Nucleated RBC Auto Ql (Bld) 0.1 /100{WBC} 0-0.5 [facility] Platelet mean volume Auto (B ld) [Entitic vol]Ordered By: Rose Ohara on 08-09-2023 Platelet mean volume (Bld) [Entitic vol] 7.8 fL 6.3-10.7 [facility] Platelets Auto (Bld) [#/Vol] Ordered By: Rose Ohara on 08-09-2023 Platelets (Bld) [#/Vol] 200 10*3/uL 150-450 [facility] Potassium [Moles/volume] in Serum or PlasmaOrdered By: Rose Ohara on 08-09-2023 Potassium [Moles/Vol] 5.1 mmol/L 3.5-5.1 [facility] [facility] [Mass/volume] in Ser um or PlasmaOrdered By: Rose Ohara on 08-09-2023 Protein [Mass/Vol] 7.0 g/dL 6.4-8.9 [facility] RBC Auto (Bld) [#/Vol]Ordere d By: Rose Ohara on 08-09-2023 RBC (Bld) [#/Vol] 4.59 10*6/uL 3.60-5.00 [facility] Serum or plasma albumin/glob ulin mass ratioOrdered By: Rose Ohara on 08-09-2023 Albumin/Globulin [Mass ratio] 1.8 {ratio} [facility] Serum or plasma anion gap de terminationOrdered By: Rose Ohara on 08-09-2023 Anion gap [Moles/Vol] 13.2 mmol/L 6.0-15.0 [facility] Sodium [Moles/volume] in Ser um or PlasmaOrdered By: Rose Ohara on 08-09-2023 Sodium [Moles/Vol] 140 mmol/L 136-145 [facility] Urea nitrogen [Mass/volume] in Serum or PlasmaOrdered By: Rose Ohara on 08-09-2023 Urea nitrogen [Mass/Vol] 26 mg/dL 7-25 [facility] WBC Auto (Bld) [#/Vol]Ordere d By: Rose Ohara on 08-09-2023 WBC (Bld) [#/Vol] 6.5 10*3/uL 3.8-11.6 [facility] Alanine aminotransferase [En zymatic activity/volume] in Serum or PlasmaOrdered By: Rose Ohara on 04-12-2023 ALT [Catalytic activity/Vol] 17 U/L 7-52 [facility] Albumin [Mass/volume] in Ser um or Plasma by Bromocresol green (BCG) dye binding methoOrdered By: Rose Ohara on 04-12-2023 Albumin BCG dye [Mass/Vol] 4.1 g/dL 3.5-5.7 [facility] Alkaline phosphatase [Enzyma tic activity/volume] in Serum or PlasmaOrdered By: Rose Ohara on 04-12-2023 ALP [Catalytic activity/Vol] 57 U/L 34-104 [facility] Aspartate aminotransferase [ Enzymatic activity/volume] in Serum or PlasmaOrdered By: Rose Ohara on 04-12-2023 AST [Catalytic activity/Vol] 16 U/L 13-39 [facility] Basophils Auto (Bld) [#/Vol] Ordered By: Rose Ohara on 04-12-2023 Basophils (Bld) [#/Vol] 0.1 10*3/uL 0.0-0.2 [facility] Basophils/100 WBC Auto (Bld) Ordered By: Rose Ohara on 04-12-2023 Basophils/100 WBC (Bld) 0.9 % . [facility] Bilirubin.total [Mass/volume ] in Serum or PlasmaOrdered By: Rose Ohara on 04-12-2023 Bilirubin [Mass/Vol] 0.9 mg/dL 0.3-1.0 [facility] Calcium [Mass/volume] in Ser um or PlasmaOrdered By: Rose Ohara on 04-12-2023 Calcium [Mass/Vol] 9.1 mg/dL 8.6-10.3 [facility] Carbon dioxide, total [Moles /volume] in Serum or PlasmaOrdered By: Rose Ohara on 04-12-2023 CO2 [Moles/Vol] 27.2 mmol/L 21.0-31.0 [facility] Chloride [Moles/volume] in S marlena or PlasmaOrdered By: Rose Ohara on 04-12-2023 Chloride [Moles/Vol] 102 mmol/L 98-107 [facility] Creatinine [Mass/volume] in Serum or PlasmaOrdered By: Rose Ohara on 04-12-2023 Creatinine [Mass/Vol] 1.01 mg/dL 0.60-1.20 [facility] Eosinophils Auto (Bld) [#/Vo l]Ordered By: Rose Ohara on 04-12-2023 Eosinophils (Bld) [#/Vol] 0.2 10*3/uL 0.0-0.45 [facility] Eosinophils/100 WBC Auto (Bl d)Ordered By: Rose Ohara on 04-12-2023 Eosinophils/100 WBC (Bld) 2.2 % . [facility] Erythrocyte distribution wid th Auto (RBC) [Ratio]Ordered By: Rose Ohara on 04-12-2023 Erythrocyte distribution width (RBC) [Ratio] 14.7 % 11.9-15.3 [facility] Globulin Calc (S) [Mass/Vol] Ordered By: Rose Ohara on 04-12-2023 Globulin (S) [Mass/Vol] 2.6 g/dL [facility] Glucose [Mass/volume] in Ser um or PlasmaOrdered By: Rose Ohara on 04-12-2023 Glucose [Mass/Vol] 203 mg/dL 70-100 [facility] Comment on above: ADA recommended refe rence rangeRandom Glucose Reference Range is dependent on time and content of last meal. Glucose of more than 200 mg/dL in a nonstressed, ambulatory subject supports the diagnosis of Diabetes Mellitus. Hematocrit Auto (Bld) [Volum e fraction]Ordered By: Rose Ohara on 04-12-2023 Hematocrit (Bld) [Volume fraction] 41.4 % 34.0-46.4 [facility] Hemoglobin [Mass/volume] in BloodOrdered By: Rose Ohara on 04-12-2023 Hemoglobin (Bld) [Mass/Vol] 13.5 g/dL 11.8-15.4 [facility] Lactate dehydrogenase [Enzym atic activity/volume] in Serum or Plasma by Lactate to pyOrdered By: Rose Ohara on 04-12-2023 LDH Lactate to pyruvate reaction [Catalytic activity/Vol] 120 U/L 140-271 [facility] Leukocytes [#/volume] correc jin for nucleated erythrocytes in Blood by Automated counOrdered By: Rose Ohara on 04-12-2023 WBC corrected for nucl RBC Auto (Bld) [#/Vol] 6.9 10*3/uL 3.8-11.6 [facility] Lymphocytes Auto (Bld) [#/Vo l]Ordered By: Rose Ohara on 04-12-2023 Lymphocytes (Bld) [#/Vol] 1.8 10*3/uL 1.00-4.8 [facility] Lymphocytes/100 WBC Auto (Bl d)Ordered By: Rose Ohara on 04-12-2023 Lymphocytes/100 WBC (Bld) 26.0 % . [facility] MCH Auto (RBC) [Entitic mass ]Ordered By: Rose Ohara on 04-12-2023 MCH (RBC) [Entitic mass] 29.3 pg 24.7-34.3 [facility] MCHC Auto (RBC) [Mass/Vol]Or dered By: Rose Ohara on 04-12-2023 MCHC (RBC) [Mass/Vol] 32.7 g/dL 32.0-35.0 [facility] MCV Auto (RBC) [Entitic vol] Ordered By: Rose Ohara on 04-12-2023 MCV (RBC) [Entitic vol] 89.4 fL 80-100 [facility] Monocytes Auto (Bld) [#/Vol] Ordered By: Rose Ohara on 04-12-2023 Monocytes (Bld) [#/Vol] 0.6 10*3/uL 0.0-0.8 [facility] Monocytes/100 WBC Auto (Bld) Ordered By: Rose Ohara on 04-12-2023 Monocytes/100 WBC (Bld) 8.6 % . [facility] Neutrophils Auto (Bld) [#/Vo l]Ordered By: Rose Ohara on 04-12-2023 Neutrophils (Bld) [#/Vol] 4.3 10*3/uL 1.8-7.7 [facility] Neutrophils/100 WBC Auto (Bl d)Ordered By: Rose Ohara on 04-12-2023 Neutrophils/100 WBC (Bld) 62.3 % . [facility] No Panel InformationOrdered By: Rose Ohara on 04-12-2023 Estimated GFR (CKD-EPI) 58.780 mL/Min [facility] Creatinine Clearance (Chem 54.77 [facility] Nucleated erythrocytes [Pres ence] in Blood by Automated countOrdered By: Rose Ohara on 04-12-2023 Nucleated RBC Auto Ql (Bld) 0.1 /100{WBC} 0-0.5 [facility] Platelet mean volume Auto (B ld) [Entitic vol]Ordered By: Rose Ohara on 04-12-2023 Platelet mean volume (Bld) [Entitic vol] 8.3 fL 6.3-10.7 [facility] Platelets Auto (Bld) [#/Vol] Ordered By: Rose Ohara on 04-12-2023 Platelets (Bld) [#/Vol] 197 10*3/uL 150-450 [facility] Potassium [Moles/volume] in Serum or PlasmaOrdered By: Rose Ohara on 04-12-2023 Potassium [Moles/Vol] 4.8 mmol/L 3.5-5.1 [facility] Protein [Mass/volume] in Ser um or PlasmaOrdered By: Rose Ohara on 04-12-2023 Protein [Mass/Vol] 6.7 g/dL 6.4-8.9 [facility] RBC Auto (Bld) [#/Vol]Ordere d By: Rose Ohara on 04-12-2023 RBC (Bld) [#/Vol] 4.62 10*6/uL 3.60-5.00 [facility] Serum or plasma albumin/glob ulin mass ratioOrdered By: Rose Ohara on 04-12-2023 Albumin/Globulin [Mass ratio] 1.6 {ratio} [facility] Serum or plasma anion gap de terminationOrdered By: Rose Ohara on 04-12-2023 Anion gap [Moles/Vol] 15.6 mmol/L 6.0-15.0 [facility] Sodium [Moles/volume] in Ser um or PlasmaOrdered By: Rose Ohara on 04-12-2023 Sodium [Moles/Vol] 140 mmol/L 136-145 [facility] Urea nitrogen [Mass/volume] in Serum or PlasmaOrdered By: Rose Ohara on 04-12-2023 Urea nitrogen [Mass/Vol] 34 mg/dL 7-25 [facility] WBC Auto (Bld) [#/Vol]Ordere d By: Rose Ohara on 04-12-2023 WBC (Bld) [#/Vol] 6.9 10*3/uL 3.8-11.6 [facility] LIPID PROFILEon 03-03-2023 CHOL-HDL RATIO NORM SEE BELOW Normal [facility] Comment on above: Result Comment: 3.3 - 4.4 LOW RISK 4.4 - 7.1 AVERAGE RISK 7.1 - 11.0 MODERATE RISK >11.0 HIGH RISK Performed By: #### L IPID #### [facility] [address] [address] [address] Claudia Branch Cholesterol [Mass/Vol] 129 mg/dL Normal <=200 [facility] Comment on above: Performed By: #### L IPID #### [facility] [address] [address] [address] Claudia Branch Cholesterol in HDL [Mass/Vol] 43 mg/dL Normal 40-60 [facility] Comment on above: Performed By: #### L IPID #### [facility] [address] [address] [address] Claudia Branch Cholesterol in LDL [Mass/Vol] 34.4 mg/dL Normal [facility] Comment on above: Performed By: #### L IPID #### [facility] [address] [address] [address] Claudia Branch Cholesterol.total/Chol esterol in HDL [Mass ratio] 3.0 {ratio} Normal [facility] Comment on above: Performed By: #### L IPID #### [facility] [address] [address] [address] Claudia Branch HDL NORMAL > or = 60 mg/dl - LO W CARDIOVASCULAR RISK <40 mg/dl - HIGH CARDIOVASCULAR RISK Normal [facility] Comment on above: Performed By: #### L IPID #### [facility] [address] [address] [address] Claudia Branch LDL CALC NORMAL SEE BELOW Normal [facility] Comment on above: Result Comment: <100 mg/dl OPTIMAL 100 - 129 mg/dl NEAR OR ABOVE OPTIMAL 130 - 159 mg/dl BORDERLINE HIGH 160 - 189 mg/dl HIGH >190 mg/dl VERY HIGH Performed By: #### L IPID #### [facility] [address] [place] [address] Dr. Claudia Branch Triglyceride [Mass/Vol] 258 mg/dL Critically high <=150 [facility] Comment on above: Performed By: #### L IPID #### [facility] [address] [place] [address] Dr. Claudia Branch VLDL CALC 51.6 mg/dL Normal [facility] Comment on above: Performed By: #### L IPID #### [facility] [address] [place] [address] Dr. Claudia Branch PROF 14(COMP METB)on 023 Albumin [Mass/Vol] 3.7 g/dL Normal 3.4-5.[address] [facility] Comment on above: Performed By: #### C MP #### [facility] [address] [place] [address] Dr. Claudia Branch Albumin/Globulin [Mass ratio] 1.1 {ratio} Normal [facility] Comment on above: Performed By: #### C MP #### [facility] [address] [place] [address] Dr. Claudia Branch ALP [Catalytic activity/Vol] 66 U/L Normal 46-116 [facility] Comment on above: Performed By: #### C MP #### [facility] [address] [place] [address] Dr. Claudia Branch ALT [Catalytic activity/Vol] 22 U/L Normal 14-59 [facility] Comment on above: Performed By: #### C MP #### [facility] [address] [place] [address] Dr. Claudia Branch Anion gap [Moles/Vol] 15.4 mmol/L Normal [facility] Comment on above: Performed By: #### C MP #### [facility] [address] [place] [address] Dr. Claudia Branch AST [Catalytic activity/Vol] 14 U/L Critically low 15-37 [facility] Comment on above: Performed By: #### C MP #### [facility] [address] [address] [address] Claudia Branch Bilirubin [Mass/Vol] 1.0 mg/dL Normal 0.2-1.0 [facility] Comment on above: Performed By: #### C MP #### [facility] [address] [address] [address] Claudia Branch Calcium [Mass/Vol] 9.4 mg/dL Normal 8.5-10.[address] [facility] Comment on above: Performed By: #### C MP #### [facility] [address] [address] [address] Claudia Branch Chloride [Moles/Vol] 102 mmol/L Normal 98-107 [facility] Comment on above: Performed By: #### C MP #### [facility] [address] [address] [address] Claudia Branch CO2 [Moles/Vol] 28.0 mmol/L Normal 21.0-32.0 [facility] Comment on above: Performed By: #### C MP #### [facility] [address] [address] [address] Claudia Branch Creatinine [Mass/Vol] 1.04 mg/dL Critically high 0.55-1.02 [facility] Comment on above: Performed By: #### C MP #### [facility] [address] [address] [address] Claudia Branch EGFR-AF MACANESE >60 Normal >=60 [facility] Comment on above: Performed By: #### C MP #### [facility] [address] [address] [address] Claudia Branch EGFR-NON AF MACANESE 52 mL/min/1.73m2 Critically low >=60 [facility] Comment on above: Performed By: #### C MP #### [facility] [address] [address] [address] Claudia rBanch Globulin (S) [Mass/Vol] 3.5 g/dL Normal [facility] Comment on above: Performed By: #### C MP #### [facility] [address] [address] [address] Claudia Branch Glucose [Mass/Vol] 174 mg/dL Critically high 74-106 [facility] Comment on above: Performed By: #### C MP #### [facility] [address] [address] [address] Claudia Branch Potassium [Moles/Vol] 5.4 mmol/L Critically high 3.5-5.1 [facility] Comment on above: Performed By: #### C MP #### [facility] [address] [address] [address] Claudia Branch Protein [Mass/Vol] 7.2 g/dL Normal 6.4-8.[address] [facility] Comment on above: Performed By: #### C MP #### [facility] [address] [address] [address] Claudia Branch Sodium [Moles/Vol] 140 mmol/L Normal 136-[address] [facility] Comment on above: Performed By: #### C MP #### [facility] [address] [address] [address] Claudia Branch Urea nitrogen [Mass/Vol] 26.0 mg/dL Critically high 7.0-18.0 [facility] Comment on above: Performed By: #### C MP #### [facility] [address] [address] [address] Claudia Branch Urea nitrogen/Creatinine [Mass ratio] 25.0 mg/mg Normal [facility] Comment on above: Performed By: #### C MP #### [facility] [address] [address] [address] Claudia Branch Estimated glomerular filtrat ion rate (GFR) non- AmericanOrdered By: Rose Ohara on 12-21-2022 GFR/1.73 sq M.predicted among non-blacks MDRD (S/P/Bld) [Vol rate/Area] > 60 mL/Min [facility] GFR/1.73 sq M.predicted among non-blacks MDRD (S/P/Bld) [Vol rate/Area] Estimated glomerular filtration rate (GFR) non- [facility] No Panel InformationOrdered By: Rose Ohara on 12-21-2022 Estimated GFR () > 60 mL/Min [facility] Comment on above: GFR estimated refere nce range: According to KDOQI guidelines, <60 ml/min/1.73m2 is sufficient to diagnose a patient with chronic kidney disease. Albumin [Mass/volume] in Ser um or PlasmaOrdered By: Rose Ohara on 09-22-2022 Albumin [Mass/Vol] 3.7 g/dL 3.2-5.5 [facility] Basophils Auto (Bld) [#/Vol] Ordered By: Rose Ohara on 09-22-2022 Basophils (Bld) [#/Vol] 0.1 10*3/uL 0.0-0.2 [facility] Basophils/100 WBC Auto (Bld) Ordered By: Rose Ohara on 09-22-2022 Basophils/100 WBC (Bld) 1.0 % . [facility] Creatinine and Glomerular fi ltration rate.predicted panel (S/P/Bld)Ordered By: Rose Ohara on 09-22-2022 Creatinine [Mass/Vol] 0.80 mg/dL 0.44-1.03 [facility] Eosinophils Auto (Bld) [#/Vo l]Ordered By: Rose Ohara on 09-22-2022 Eosinophils (Bld) [#/Vol] 0.1 10*3/uL 0.0-0.45 [facility] Eosinophils/100 WBC Auto (Bl d)Ordered By: Rose Ohara on 09-22-2022 Eosinophils/100 WBC (Bld) 2.0 % . [facility] Erythrocyte distribution wid th Auto (RBC) [Ratio]Ordered By: Roes Ohara on 09-22-2022 Erythrocyte distribution width (RBC) [Ratio] 14.7 % 11.9-15.3 [facility] Estimated glomerular filtrat ion rate (GFR) non- AmericanOrdered By: Rose Ohara on 09-22-2022 GFR/1.73 sq M.predicted among non-blacks MDRD (S/P/Bld) [Vol rate/Area] > 60 mL/Min [facility] Globulin Calc (S) [Mass/Vol] Ordered By: Rose Ohara on 09-22-2022 Globulin (S) [Mass/Vol] 2.8 g/dL [facility] Hematocrit Auto (Bld) [Volum e fraction]Ordered By: Rose Ohara on 09-22-2022 Hematocrit (Bld) [Volume fraction] 43.2 % 34.0-46.4 [facility] Hemoglobin [Mass/volume] in BloodOrdered By: Rose Ohara on 09-22-2022 Hemoglobin (Bld) [Mass/Vol] 13.9 g/dL 11.8-15.4 [facility] - Hematology and Cell countsOrdered By: Rose Ohara on 09-22-2022 Nucleated RBC/100 WBC (Bld) [Ratio] 0.1 % 0-0.5 [facility] Lactate dehydrogenase measur ement (enzymatic activity/volume)Ordered By: Rose Ohara on 09-22-2022 LDH (Unsp spec) [Catalytic activity/Vol] 106 U/L 45-190 [facility] Leukocytes [#/volume] in Blo od by Automated countOrdered By: Rose Ohara on 09-22-2022 WBC (Bld) [#/Vol] 6.9 10*3/uL 4.5-11.0 [facility] Lymphocytes Auto (Bld) [#/Vo l]Ordered By: Rose Ohara on 09-22-2022 Lymphocytes (Bld) [#/Vol] 1.5 10*3/uL 1.00-4.8 [facility] Lymphocytes/100 WBC Auto (Bl d)Ordered By: Rose Ohara on 09-22-2022 Lymphocytes/100 WBC (Bld) 21.6 % . [facility] MCH Auto (RBC) [Entitic mass ]Ordered By: Rose Ohara on 09-22-2022 MCH (RBC) [Entitic mass] 29.0 pg 24.7-34.3 [facility] MCHC Auto (RBC) [Mass/Vol]Or dered By: Rose Ohara on 09-22-2022 MCHC (RBC) [Mass/Vol] 32.2 g/dL 32.0-35.0 [facility] MCV Auto (RBC) [Entitic vol] Ordered By: Rose Ohara on 09-22-2022 MCV (RBC) [Entitic vol] 90.2 fL 80-100 [facility] Monocytes Auto (Bld) [#/Vol] Ordered By: Rose Ohara on 09-22-2022 Monocytes (Bld) [#/Vol] 0.7 10*3/uL 0.0-0.8 [facility] Monocytes/100 WBC Auto (Bld) Ordered By: Rose Ohara on 09-22-2022 Monocytes/100 WBC (Bld) 9.7 % . [facility] Neutrophils Auto (Bld) [#/Vo l]Ordered By: Rose Ohara on 09-22-2022 Neutrophils (Bld) [#/Vol] 4.5 10*3/uL 1.8-7.7 [facility] Neutrophils/100 WBC Auto (Bl d)Ordered By: Rose Ohara on 09-22-2022 Neutrophils/100 WBC (Bld) 65.7 % . [facility] No Panel InformationOrdered By: Rose Ohara on 09-22-2022 Estimated GFR () > 60 mL/Min [facility] Comment on above: GFR estimated refere nce range: According to KDOQI guidelines, <60 ml/min/1.73m2 is sufficient to diagnose a patient with chronic kidney disease. Pharmacy Creatinine Clearance (Chem 70.04 [facility] Platelet mean volume Auto (B ld) [Entitic vol]Ordered By: Rose Ohara on 09-22-2022 Platelet mean volume (Bld) [Entitic vol] 8.0 fL 6.3-10.7 [facility] Platelets Auto (Bld) [#/Vol] Ordered By: Rose Ohara on 09-22-2022 Platelets (Bld) [#/Vol] 227 10*3/uL 150-450 [facility] Protein [Mass/volume] in Ser um or PlasmaOrdered By: Rose Ohara on 09-22-2022 Protein [Mass/Vol] 6.5 g/dL 6.1-7.9 [facility] RBC Auto (Bld) [#/Vol]Ordere d By: Rose Ohara on 09-22-2022 RBC (Bld) [#/Vol] 4.79 10*6/uL 3.60-5.00 [facility] Serum or plasma alanine mari otransferase measurement without P-5'-P (enzymatic activiOrdered By: Rose Ohara on 09-22-2022 ALT No additional P-5'-P [Catalytic activity/Vol] 16 U/L 10-60 [facility] Serum or plasma albumin/glob ulin mass ratioOrdered By: Rose Ohara on 09-22-2022 Albumin/Globulin [Mass ratio] 1.3 {ratio} [facility] Serum or plasma alkaline danial sphatase measurement (enzymatic activity/volume)Ordered By: Roes Ohara on 09-22-2022 ALP [Catalytic activity/Vol] 45 U/L 32-92 [facility] Serum or plasma anion gap de terminationOrdered By: Rose Ohara on 09-22-2022 Anion gap [Moles/Vol] 11.0 mmol/L 6.0-15.0 [facility] Serum or plasma aspartate am inotransferase measurement (enzymatic activity/volume)Ordered By: Rose Ohara on 09-22-2022 AST [Catalytic activity/Vol] 17 U/L 10-42 [facility] Serum or plasma calcium kandi urement (mass/volume)Ordered By: Rose Ohara on 09-22-2022 Calcium [Mass/Vol] 9.2 mg/dL 8.2-10.2 [facility] Serum or plasma chloride florentino surement (moles/volume)Ordered By: Rose hOara on 09-22-2022 Chloride [Moles/Vol] 99 mmol/L 95-114 [facility] Serum or plasma glucose kandi urement (mass/volume)Ordered By: Rose Ohara on 09-22-2022 Glucose [Mass/Vol] 113 mg/dL 70-100 [facility] Comment on above: ADA recommended refe rence rangeRandom Glucose Reference Range is dependent on time and content of last meal. Glucose of more than 200 mg/dL in a nonstressed, ambulatory subject supports the diagnosis of Diabetes Mellitus. Serum or plasma potassium me asurement (moles/volume)Ordered By: Rose Ohara on 09-22-2022 Potassium [Moles/Vol] 4.3 mmol/L 3.5-5.1 [facility] Serum or plasma sodium measu rement (moles/volume)Ordered By: Rose Ohara on 09-22-2022 Sodium [Moles/Vol] 135 mmol/L 136-146 [facility] Serum or plasma total biliru bin measurement (mass/volume)Ordered By: Rose Ohara on 09-22-2022 Bilirubin [Mass/Vol] 1.2 mg/dL 0.3-1.2 [facility] Serum or plasma total carbon dioxide measurement (moles/volume)Ordered By: Rose Thompsonse on 09-22-2022 CO2 [Moles/Vol] 29.3 mmol/L 22.0-30.0 [facility] Serum or plasma urea nitroge n measurement (mass/volume)Ordered By: Rose Thompsonse on 09-22-2022 Urea nitrogen [Mass/Vol] 16 mg/dL 9-23 [facility] GLYCOHEMOGLOBIN A1Con 2021 ADA RECOMMENDATION SEE BELOW Normal [facility] Comment on above: Result Comment: ADA RECOMMENDED LIMIT 4.0 - 6.0 ADA THERAPEUTIC TARGET < 7.0 ACTION SUGGESTED > 7.0 Performed By: #### A 1C #### [facility] [address] [address] [address] Claudia Bracnh Glucose [Mass/Vol] 169 mg/dL Normal [facility] Comment on above: Performed By: #### A 1C #### [facility] [address] [address] [address] Claudia Branch HbA1c (Bld) [Mass fraction] 7.5 % Critically high 4.5-6.2 [facility] Comment on above: Performed By: #### A 1C #### [facility] [address] [address] [address] Claudia Branch LIPID PROFILEon 08-26-2022 CHOL-HDL RATIO NORM SEE BELOW Normal [facility] Comment on above: Result Comment: 3.3 - 4.4 LOW RISK 4.4 - 7.1 AVERAGE RISK 7.1 - 11.0 MODERATE RISK >11.0 HIGH RISK Performed By: #### L IPID, CMP #### [facility] [address] [address] [address] Claudia Branch Cholesterol [Mass/Vol] 99 mg/dL Normal <=200 [facility] Comment on above: Performed By: #### L IPID, CMP #### [facility] [address] [address] [address] Claudia Branch Cholesterol in HDL [Mass/Vol] 45 mg/dL Normal 40-60 [facility] Comment on above: Performed By: #### L IPID, CMP #### [facility] [address] [address] [address] Claudia Branch Cholesterol in LDL [Mass/Vol] 22.6 mg/dL Normal [facility] Comment on above: Performed By: #### L IPID, CMP #### [facility] [address] [address] [address] Claudia Branch Cholesterol.total/Chol esterol in HDL [Mass ratio] 2.2 {ratio} Normal [facility] Comment on above: Performed By: #### L IPID, CMP #### [facility] [address] [address] [address] Claudia Branch HDL NORMAL > or = 60 mg/dl - LO W CARDIOVASCULAR RISK <40 mg/dl - HIGH CARDIOVASCULAR RISK Normal [facility] Comment on above: Performed By: #### L IPID, CMP #### [facility] [address] [address] [address] Claudia Branch LDL CALC NORMAL SEE BELOW Normal [facility] Comment on above: Result Comment: <100 mg/dl OPTIMAL 100 - 129 mg/dl NEAR OR ABOVE OPTIMAL 130 - 159 mg/dl BORDERLINE HIGH 160 - 189 mg/dl HIGH >190 mg/dl VERY HIGH Performed By: #### L IPID, CMP #### [facility] [address] [address] [address] Claudia Branch Triglyceride [Mass/Vol] 157 mg/dL Critically high <=150 [facility] Comment on above: Performed By: #### L IPID, CMP #### [facility] [address] [address] [address] Claudia Branch VLDL CALC 31.4 mg/dL Normal [facility] Comment on above: Performed By: #### L IPID, CMP #### [facility] [address] [address] [address] Claudia Branch PROF 14(COMP METB)on 08-26- 022 Albumin [Mass/Vol] 3.9 g/dL Normal 3.4-5.[address] [facility] Comment on above: Performed By: #### L IPID, CMP #### [facility] [address] [place] [address] Dr. Claudia Branch Albumin/Globulin [Mass ratio] 1.0 {ratio} Normal [facility] Comment on above: Performed By: #### L IPID, CMP #### [facility] [address] [place] [address] Dr. Claudia Branch ALP [Catalytic activity/Vol] 57 U/L Normal 46-116 [facility] Comment on above: Performed By: #### L IPID, CMP #### [facility] [address] [place] [address] Dr. Claudia Branch ALT [Catalytic activity/Vol] 22 U/L Normal 14-59 [facility] Comment on above: Performed By: #### L IPID, CMP #### [facility] [address] [place] [address] Dr. Claudia Branch Anion gap [Moles/Vol] 10.7 mmol/L Normal [facility] Comment on above: Performed By: #### L IPID, CMP #### [facility] [address] [address] [address] Claudia Branch AST [Catalytic activity/Vol] 11 U/L Critically low 15-37 [facility] Comment on above: Performed By: #### L IPID, CMP #### [facility] [address] [place] [address] Dr. Claudia Branch Bilirubin [Mass/Vol] 1.4 mg/dL Critically high 0.2-1.0 [facility] Comment on above: Performed By: #### L IPID, CMP #### [facility] [address] [place] [address] Dr. Claudia Branch Calcium [Mass/Vol] 9.3 mg/dL Normal 8.5-10.[address] [facility] Comment on above: Performed By: #### L IPID, CMP #### [facility] [address] [place] [address] Dr. Claudia Branch Chloride [Moles/Vol] 103 mmol/L Normal 98-107 [facility] Comment on above: Performed By: #### L IPID, CMP #### [facility] [address] [place] [address] Dr. Claudia Branch CO2 [Moles/Vol] 31.2 mmol/L Normal 21.0-32.0 [facility] Comment on above: Performed By: #### L IPID, CMP #### [facility] [address] [place] [address] Dr. Claudia Branch Creatinine [Mass/Vol] 0.83 mg/dL Normal 0.55-1.02 [facility] Comment on above: Performed By: #### L IPID, CMP #### [facility] [address] [place] [address] Dr. Claudia Branch EGFR-AF MACANESE >60 Normal >=60 [facility] Comment on above: Performed By: #### L IPID, CMP #### [facility] [address] [place] [address] Dr. Claudia Branch EGFR-NON AF MACANESE >60 Normal >=60 [facility] Comment on above: Performed By: #### L IPID, CMP #### [facility] [address] [place] [address] Dr. Claudia Branch Globulin (S) [Mass/Vol] 3.6 g/dL Normal [facility] Comment on above: Performed By: #### L IPID, CMP #### [facility] [address] [place] [address] Dr. Claudia Branch Glucose [Mass/Vol] 114 mg/dL Critically high 74-106 [facility] Comment on above: Performed By: #### L IPID, CMP #### [facility] [address] [place] [address] Dr. Claudia Branch Potassium [Moles/Vol] 4.4 mmol/L Normal 3.5-5.1 [facility] Comment on above: Performed By: #### L IPID, CMP #### [facility] [address] [place] [address] Dr. Claudia Branch Protein [Mass/Vol] 7.5 g/dL Normal 6.4-8.2 [facility] Comment on above: Performed By: #### L IPID, CMP #### [facility] [address] [place] [address] Dr. Caludia Branch Sodium [Moles/Vol] 141 mmol/L Normal 136-145 [facility] Comment on above: Performed By: #### L IPID, CMP #### [facility] [address] [place] [address] Dr. Claudia Branch Urea nitrogen [Mass/Vol] 20.0 mg/dL Critically high 7.0-18.0 [facility] Comment on above: Performed By: #### L IPID, CMP #### [facility] [address] [place] [address] Dr. Claudia Branch Urea nitrogen/Creatinine [Mass ratio] 24.0 mg/mg Normal [facility] Comment on above: Performed By: #### L IPID, CMP #### [facility] [address] [place] [address] Dr. Claudia Branch GI PANEL (PCR)on 08-11-2022 Adenovirus F 40/41 Not detected Normal NOT DETECTED [facility] Comment on above: Performed By: #### G IPANEL #### [facility] [address] [place] [address] Dr. Claudia Branch Astrovirus Not detected Normal NOT DETECTED [facility] Comment on above: Performed By: #### G IPANEL #### [facility] [address] [place] [address] Dr. Claudia Branch C. Diff toxin A/B Detected Critically abnormal NOT DETECTED [facility] Comment on above: Performed By: #### G IPANEL #### [facility] [address] [place] [address] Dr. Claudia Branch Campylobacter Not detected Normal NOT DETECTED [facility] Comment on above: Performed By: #### G IPANEL #### [facility] [address] [address] [address] Claudia Branch Cryptosporidium Not detected Normal NOT DETECTED [facility] Comment on above: Performed By: #### G IPANEL #### [facility] [address] [place] [address] Dr. Claudia Branch Cyclos. Cayetanensis Not detected Normal NOT DETECTED [facility] Comment on above: Performed By: #### G IPANEL #### [facility] [address] [place] [address] Dr. Claudia Branch E. Coli O157 Not Applicable Normal Not Applicable [facility] Comment on above: Performed By: #### G IPANEL #### [facility] [address] [place] [address] Dr. Claudia Branch E. histolytica Not detected Normal NOT DETECTED [facility] Comment on above: Performed By: #### G IPANEL #### [facility] [address] [place] [address] Dr. Claudia Branch EAEC Not detected Normal NOT DETECTED [facility] Comment on above: Performed By: #### G IPANEL #### [facility] [address] [place] [address] Dr. Claudia Branch EIEC Not detected Normal NOT DETECTED [facility] Comment on above: Performed By: #### G IPANEL #### [facility] [address] [place] [address] Dr. Claudia Branch EPEC Not detected Normal NOT DETECTED [facility] Comment on above: Performed By: #### G IPANEL #### [facility] [address] [place] [address] Dr. Claudia Branch ETEC Not detected Normal NOT DETECTED [facility] Comment on above: Performed By: #### G IPANEL #### [facility] [address] [place] [address] Dr. Claudia Dent. Lamblia Not detected Normal NOT DETECTED [facility] Comment on above: Performed By: #### G IPANEL #### [facility] [address] [address] [address] Claudia ROSE CONTROLS PASSED Normal [facility] Comment on above: Performed By: #### G IPANEL #### [facility] [address] [address] [address] Claudia MCKAY BANNER HEADER GI PANEL BACTERIA Normal [facility] Comment on above: Performed By: #### G IPANEL #### [facility] [address] [address] [address] Claudia RAMIREZ ECOLI GI PANEL DIARRHEAGEN IC E.COLI / SHIGELLA Normal [facility] Comment on above: Performed By: #### G IPANEL #### [facility] [address] [place] [address] Dr. Claudia RAMIREZ INFO SEE BELOW Normal [facility] Comment on above: Result Comment: EAEC - Enteroaggregative E. Coli EPEC- Enteropathogenic E. Coli ETEC- Enterotoxigenic E. Coli lt/st STEC- Shigella-like toxin-producing E. Coli stx1/stx2 EIEC- Shigella/Enteroinvasive E. Coli Performed By: #### G IPANEL #### [facility] [address] [place] [address] Dr. Claudia RAMIREZ PARASITES GI PANEL PARASITES Normal [facility] Comment on above: Performed By: #### G IPANEL #### [facility] [address] [place] [address] Dr. Claudia RAMIREZ VIRUS GI PANEL VIRUSES Normal [facility] Comment on above: Performed By: #### G IPANEL #### [facility] [address] [place] [address] Dr. Claudia Branch Norovirus GI/GII Not detected Normal NOT DETECTED [facility] Comment on above: Performed By: #### G IPANEL #### [facility] [address] [place] [address] Dr. Claudia Branch P. Shigelloides Not detected Normal NOT DETECTED [facility] Comment on above: Performed By: #### G IPANEL #### [facility] [address] [place] [address] Dr. Claudia Branch Rotavirus A Not detected Normal NOT DETECTED [facility] Comment on above: Performed By: #### G IPANEL #### [facility] [address] [place] [address] Dr. Claudia Branch Salmonella Not detected Normal NOT DETECTED [facility] Comment on above: Performed By: #### G IPANEL #### [facility] [address] [place] [address] Dr. Caludia Branch Sapovirus Not detected Normal NOT DETECTED [facility] Comment on above: Performed By: #### G IPANEL #### [facility] [address] [place] [address] Dr. Claudia Branch STEC Not detected Normal NOT DETECTED [facility] Comment on above: Performed By: #### G IPANEL #### [facility] [address] [place] [address] Dr. Claudia Branch Vibrio Not detected Normal NOT DETECTED [facility] Comment on above: Performed By: #### G IPANEL #### [facility] [address] [place] [address] Dr. Claudia Branch Vibrio Cholera Not detected Normal NOT DETECTED [facility] Comment on above: Performed By: #### G IPANEL #### [facility] [address] [place] [address] Dr. Claudia Branch Y. Enterocolitica Not detected Normal NOT DETECTED [facility] Comment on above: Performed By: #### G IPANEL #### [facility] [address] [place] [address] Dr. Claudia Branch Albumin [Mass/volume] in Ser um or PlasmaOrdered By: Rose Ohara on 06-29-2022 Albumin [Mass/Vol] 4.1 g/dL 3.2-5.5 [facility] Basophils Auto (Bld) [#/Vol] Ordered By: Rose Ohara on 06-29-2022 Basophils (Bld) [#/Vol] 0.1 10*3/uL 0.0-0.2 [facility] Basophils/100 WBC Auto (Bld) Ordered By: Rose Ohara on 06-29-2022 Basophils/100 WBC (Bld) 1.2 % . [facility] Blood hemoglobin measurement (mass/volume)Ordered By: Rose Ohara on 06-29-2022 Hemoglobin (Bld) [Mass/Vol] 15.0 g/dL 11.8-15.4 [facility] Blood leukocytes automated c ount (number/volume)Ordered By: Rose Ohara on 06-29-2022 WBC (Bld) [#/Vol] 8.4 10*3/uL 4.5-11.0 [facility] Creatinine and Glomerular fi ltration rate.predicted panel (S/P/Bld)Ordered By: Rose Ohara on 06-29-2022 Creatinine [Mass/Vol] 0.87 mg/dL 0.44-1.03 [facility] Eosinophils Auto (Bld) [#/Vo l]Ordered By: Rose Ohara on 06-29-2022 Eosinophils (Bld) [#/Vol] 0.3 10*3/uL 0.0-0.45 [facility] Eosinophils/100 WBC Auto (Bl d)Ordered By: Rose Ohara on 06-29-2022 Eosinophils/100 WBC (Bld) 3.7 % . [facility] Erythrocyte distribution wid th Auto (RBC) [Ratio]Ordered By: Rose Ohara on 06-29-2022 Erythrocyte distribution width (RBC) [Ratio] 14.9 % 11.9-15.3 [facility] Estimated glomerular filtrat ion rate (GFR) non- AmericanOrdered By: Rose Ohara on 06-29-2022 GFR/1.73 sq M.predicted among non-blacks MDRD (S/P/Bld) [Vol rate/Area] > 60 mL/Min [facility] Globulin Calc (S) [Mass/Vol] Ordered By: Rose Ohara on 06-29-2022 Globulin (S) [Mass/Vol] 3.0 g/dL [facility] Hematocrit Auto (Bld) [Volum e fraction]Ordered By: Rose Ohara on 06-29-2022 Hematocrit (Bld) [Volume fraction] 45.9 % 34.0-46.4 [facility] - Hematology and Cell countsOrdered By: Rose Ohara on 06-29-2022 Nucleated RBC/100 WBC (Bld) [Ratio] 0.1 % 0-0.5 [facility] Lactate dehydrogenase measur ement (enzymatic activity/volume)Ordered By: Rose Ohara on 06-29-2022 LDH (Unsp spec) [Catalytic activity/Vol] 131 U/L 45-190 [facility] Lymphocytes Auto (Bld) [#/Vo l]Ordered By: Rose Ohara on 06-29-2022 Lymphocytes (Bld) [#/Vol] 1.6 10*3/uL 1.00-4.8 [facility] Lymphocytes/100 WBC Auto (Bl d)Ordered By: Rose Ohara on 06-29-2022 Lymphocytes/100 WBC (Bld) 18.8 % . [facility] MCH Auto (RBC) [Entitic mass ]Ordered By: Rose Ohara on 06-29-2022 MCH (RBC) [Entitic mass] 29.8 pg 24.7-34.3 [facility] MCHC Auto (RBC) [Mass/Vol]Or dered By: Rose Ohara on 06-29-2022 MCHC (RBC) [Mass/Vol] 32.8 g/dL 32.0-35.0 [facility] MCV Auto (RBC) [Entitic vol] Ordered By: Rose Ohara on 06-29-2022 MCV (RBC) [Entitic vol] 91.0 fL 80-100 [facility] Monocytes Auto (Bld) [#/Vol] Ordered By: Rose Ohara on 06-29-2022 Monocytes (Bld) [#/Vol] 0.8 10*3/uL 0.0-0.8 [facility] Monocytes/100 WBC Auto (Bld) Ordered By: Rose Ohara on 06-29-2022 Monocytes/100 WBC (Bld) 9.5 % . [facility] Neutrophils Auto (Bld) [#/Vo l]Ordered By: Rose Ohara on 06-29-2022 Neutrophils (Bld) [#/Vol] 5.6 10*3/uL 1.8-7.7 [facility] Neutrophils/100 WBC Auto (Bl d)Ordered By: Rose Ohara on 06-29-2022 Neutrophils/100 WBC (Bld) 66.8 % . [facility] No Panel InformationOrdered By: Rose Ohara on 06-29-2022 Estimated GFR () > 60 mL/Min [facility] Comment on above: GFR estimated refere nce range: According to KDOQI guidelines, <60 ml/min/1.73m2 is sufficient to diagnose a patient with chronic kidney disease. Pharmacy Creatinine Clearance (Chem 64.07 [facility] Platelet mean volume Auto (B ld) [Entitic vol]Ordered By: Rose Ohara on 06-29-2022 Platelet mean volume (Bld) [Entitic vol] 7.9 fL 6.3-10.7 [facility] Platelets Auto (Bld) [#/Vol] Ordered By: Rose Ohara on 06-29-2022 Platelets (Bld) [#/Vol] 226 10*3/uL 150-450 [facility] Protein [Mass/volume] in Ser um or PlasmaOrdered By: Rose Ohara on 06-29-2022 Protein [Mass/Vol] 7.1 g/dL 6.1-7.9 [facility] RBC Auto (Bld) [#/Vol]Ordere d By: Rose Ohara on 06-29-2022 RBC (Bld) [#/Vol] 5.04 10*6/uL 3.60-5.00 [facility] Serum or plasma alanine mari otransferase measurement without P-5'-P (enzymatic activiOrdered By: Rose Ohara on 06-29-2022 ALT No additional P-5'-P [Catalytic activity/Vol] 27 U/L 10-60 [facility] Serum or plasma albumin/glob ulin mass ratioOrdered By: Rose Ohara on 06-29-2022 Albumin/Globulin [Mass ratio] 1.4 {ratio} [facility] Serum or plasma alkaline danial sphatase measurement (enzymatic activity/volume)Ordered By: Rose Ohara on 06-29-2022 ALP [Catalytic activity/Vol] 56 U/L 32-92 [facility] Serum or plasma aspartate am inotransferase measurement (enzymatic activity/volume)Ordered By: Rose Ohara on 06-29-2022 AST [Catalytic activity/Vol] 26 U/L 10-42 [facility] Serum or plasma calcium kandi urement (mass/volume)Ordered By: Rose Ohara on 06-29-2022 Calcium [Mass/Vol] 10.2 mg/dL 8.2-10.2 [facility] Serum or plasma chloride florentino surement (moles/volume)Ordered By: Rose Ohara on 06-29-2022 Chloride [Moles/Vol] 102 mmol/L 95-114 [facility] Serum or plasma glucose kandi urement (mass/volume)Ordered By: Rose Ohara on 06-29-2022 Glucose [Mass/Vol] 130 mg/dL 70-100 [facility] Comment on above: ADA recommended refe rence range Random Glucose Reference Range is dependent on time and content of last meal. Glucose of more than 200 mg/dL in a nonstressed, ambulatory subject supports the diagnosis of Diabetes Mellitus. Serum or plasma potassium me asurement (moles/volume)Ordered By: Rose Ohara on 06-29-2022 Potassium [Moles/Vol] 4.9 mmol/L 3.5-5.1 [facility] Serum or plasma sodium measu rement (moles/volume)Ordered By: Rose Ohara on 06-29-2022 Sodium [Moles/Vol] 139 mmol/L 136-146 [facility] Serum or plasma total biliru bin measurement (mass/volume)Ordered By: Rose Ohara on 06-29-2022 Bilirubin [Mass/Vol] 1.2 mg/dL 0.3-1.2 [facility] Serum or plasma total carbon dioxide measurement (moles/volume)Ordered By: Rose Ohara on 06-29-2022 CO2 [Moles/Vol] 24.6 mmol/L 22.0-30.0 [facility] Serum or plasma urea nitroge n measurement (mass/volume)Ordered By: Rose Ohara on 06-29-2022 Urea nitrogen [Mass/Vol] 21 mg/dL 07-30 [facility] BNPon 04-29-2022 Natriuretic peptide B (Bld) [Mass/Vol] 280.0 pg/mL Normal <=900.0 [facility] Comment on above: Performed By: #### B HEEL ROOM SUPERVISOR, BMP #### [facility] [address] [place] [address] Dr. Claudia Branch PROF CHEM 8 (BAS METB)on Anion gap [Moles/Vol] 17.9 mmol/L Normal [facility] Comment on above: Performed By: #### B HEEL ROOM SUPERVISOR, BMP #### [facility] [address] [address] [address] Claudia Branch Calcium [Mass/Vol] 8.9 mg/dL Normal 8.5-10.[address] [facility] Comment on above: Performed By: #### B HEEL ROOM SUPERVISOR, BMP #### [facility] [address] [address] [address] Clauida Branch Chloride [Moles/Vol] 104 mmol/L Normal 98-107 [facility] Comment on above: Performed By: #### B HEEL ROOM SUPERVISOR, BMP #### [facility] [address] [place] [address] Dr. Claudia Branch CO2 [Moles/Vol] 23.2 mmol/L Normal 21.0-32.0 [facility] Comment on above: Performed By: #### B HEEL ROOM SUPERVISOR, BMP #### [facility] [address] [place] [address] Dr. Claudia Branch Creatinine [Mass/Vol] 1.04 mg/dL Critically high 0.55-1.02 [facility] Comment on above: Performed By: #### B HEEL ROOM SUPERVISOR, BMP #### [facility] [address] [place] [address] Dr. Claudia Branch EGFR-AF MACANESE >60 Normal >=60 [facility] Comment on above: Performed By: #### B HEEL ROOM SUPERVISOR, BMP #### [facility] [address] [place] [address] Dr. Claudia Branch EGFR-NON AF MACANESE 52 mL/min/1.73m2 Critically low >=60 [facility] Comment on above: Performed By: #### B HEEL ROOM SUPERVISOR, BMP #### [facility] [address] [place] [address] Dr. Claudia Branch Glucose [Mass/Vol] 254 mg/dL Critically high 74-[address] [facility] Comment on above: Performed By: #### B HEEL ROOM SUPERVISOR, BMP #### [facility] [address] [address] [address] Claudia Branch Potassium [Moles/Vol] 5.1 mmol/L Normal 3.5-5.1 [facility] Comment on above: Performed By: #### B HEEL ROOM SUPERVISOR, BMP #### [facility] [address] [address] [address] Claudia Branch Sodium [Moles/Vol] 140 mmol/L Normal 136-[address] [facility] Comment on above: Performed By: #### B HEEL ROOM SUPERVISOR, BMP #### [facility] [address] [address] [address] Claudia Branch Urea nitrogen [Mass/Vol] 25.0 mg/dL Critically high 7.0-18.0 [facility] Comment on above: Performed By: #### B HEEL ROOM SUPERVISOR, BMP #### [facility] [address] [address] [address] Claudia Branch Urea nitrogen/Creatinine [Mass ratio] 24.0 mg/mg Normal [facility] Comment on above: Performed By: #### B HEEL ROOM SUPERVISOR, BMP #### [facility] [address] [address] [address] Claudia Branch BASIC METABOLIC PANELon 06-0 -2021 Calcium [Mass/Vol] 9.7 mg/dL Normal 8.6-10.4 [facility] Comment on above: Performed By: #### 8 [id number], [id number] #### [facility] [address] [address] C Wpf Developer: Baldemar Jones MD Chloride [Moles/Vol] 106 mmol/L Normal 98-110 [facility] Comment on above: Performed By: #### 8 99, [id number] #### [facility] [address] [address] C Wpf Developer: Baldemar Jones MD CO2 [Moles/Vol] 24 mmol/L Normal 20-32 [facility] Comment on above: Performed By: #### 8 99, [id number] #### [facility] [address] [address] C Wpf Developer: Baldemar Jones MD Creatinine [Mass/Vol] 1.32 mg/dL High 0.60-0.[address] [facility] Comment on above: Result Comment: For patients >49 years of age, the reference limit for Creatinine is approximately 13% higher for people identified as -[place]ian. Performed By: #### 8 99, [id number] #### [facility] [address], [address] [place] [address] C Wpf Developer: Baldemar Jones MD eGFR NON-AFR. MACANESE 40 mL/min/1.73m2 Low > OR = 60 [facility] Comment on above: Performed By: #### 8 99, [id number] #### [facility] [address], [address] [place] [address] C Wpf Developer: Baldemar Jones MD GFR/1.73 sq M.predicted among blacks MDRD (S/P/Bld) [Vol rate/Area] 47 mL/min/{1.73_m2} Low > OR = 60 [facility] Comment on above: Performed By: #### 8 99, [id number] #### [facility] [address], [address] [place] [address] C Wpf Developer: Baldemar Jones MD Glucose [Mass/Vol] 99 mg/dL Normal 65-99 [facility] Comment on above: Result Comment: Fasting reference interval Performed By: #### 8 99, [id number] #### [facility] [address], [address] [place] [address] C Wpf Developer: Baldemar Jones MD Potassium [Moles/Vol] 4.6 mmol/L Normal 3.5-5.[address] [facility] Comment on above: Performed By: #### 8 99, [id number] #### [facility] [address], [address] [place] [address] C Wpf Developer: Baldemar Jones MD Sodium [Moles/Vol] 143 mmol/L Normal 135-146 [facility] Comment on above: Performed By: #### 8 99, [id number] #### [facility] [address], [address] [place] [address] C Wpf Developer: Baldemar Jones MD Urea nitrogen [Mass/Vol] 30 mg/dL High 7- [facility] Comment on above: Performed By: #### 8 99, [id number] #### [facility] [address], [address] [place] [address] C Wpf Developer: Baldemar Jones MD Urea nitrogen/Creatinine [Mass ratio] 23 mg/mg High 6- [facility] Comment on above: Performed By: #### 8 99, [id number] #### [facility] of [address], [address] [place] [address] C Wpf Developer: Baldemar Jones MD TSHon 04-09-2022 TSH Qn 0.67 m[IU]/L Normal 0.40-4.50 [facility] Comment on above: Performed By: #### 8 99, [id number] #### [facility] of [address] [address], [address] [place] [address] C Wpf Developer: Baldemar Jones MD Albumin [Mass/volume] in Ser um or PlasmaOrdered By: Rose Ohara on 03-25-2022 Albumin [Mass/Vol] 3.8 g/dL 3.2-5.5 [facility] Basophils Auto (Bld) [#/Vol] Ordered By: Rose Ohara on 03-25-2022 Basophils (Bld) [#/Vol] 0.1 10*3/uL 0.0-0.2 [facility] Basophils/100 WBC Auto (Bld) Ordered By: Rose Ohara on 03-25-2022 Basophils/100 WBC (Bld) 1.1 % [facility] Blood hemoglobin measurement (mass/volume)Ordered By: Rose Ohara on 03-25-2022 Hemoglobin (Bld) [Mass/Vol] 14.2 g/dL 11.8-15.4 [facility] Blood leukocytes automated c ount (number/volume)Ordered By: Rose Ohara on 03-25-2022 WBC (Bld) [#/Vol] 7.4 10*3/uL 4.5-11.0 [facility] Creatinine and Glomerular fi ltration rate.predicted panel (S/P/Bld)Ordered By: Rose Ohara on 03-25-2022 Creatinine [Mass/Vol] 1.40 mg/dL 0.44-1.03 [facility] Eosinophils Auto (Bld) [#/Vo l]Ordered By: Rose Ohara on 03-25-2022 Eosinophils (Bld) [#/Vol] 0.2 10*3/uL 0.0-0.45 [facility] Eosinophils/100 WBC Auto (Bl d)Ordered By: Rose Ohara on 03-25-2022 Eosinophils/100 WBC (Bld) 2.6 % [facility] Erythrocyte distribution wid th Auto (RBC) [Ratio]Ordered By: Rose Ohara on 03-25-2022 Erythrocyte distribution width (RBC) [Ratio] 15.1 % 11.9-15.3 [facility] Estimated glomerular filtrat ion rate (GFR) non- AmericanOrdered By: Rose Ohara on 03-25-2022 GFR/1.73 sq M.predicted among non-blacks MDRD (S/P/Bld) [Vol rate/Area] 37 mL/Min [facility] Globulin Calc (S) [Mass/Vol] Ordered By: Rose Ohara on 03-25-2022 Globulin (S) [Mass/Vol] 2.5 g/dL [facility] Hematocrit Auto (Bld) [Volum e fraction]Ordered By: Rose Ohara on 03-25-2022 Hematocrit (Bld) [Volume fraction] 43.3 % 34.0-46.4 [facility] Laboratory - Hematology and Cell countsOrdered By: Rose hOara on 03-25-2022 Nucleated RBC/100 WBC (Bld) [Ratio] 0.1 % 0-0.5 [facility] Lactate dehydrogenase measur ement (enzymatic activity/volume)Ordered By: Rose Ohara on 03-25-2022 LDH (Unsp spec) [Catalytic activity/Vol] 111 U/L 45-190 [facility] Lymphocytes Auto (Bld) [#/Vo l]Ordered By: Rose Ohara on 03-25-2022 Lymphocytes (Bld) [#/Vol] 1.7 10*3/uL 1.00-4.8 [facility] Lymphocytes/100 WBC Auto (Bl d)Ordered By: Rose Ohara on 03-25-2022 Lymphocytes/100 WBC (Bld) 22.3 % [facility] MCH Auto (RBC) [Entitic mass ]Ordered By: Rose Ohara on 03-25-2022 MCH (RBC) [Entitic mass] 29.0 pg 24.7-34.3 [facility] MCHC Auto (RBC) [Mass/Vol]Or dered By: Rose Ohara on 03-25-2022 MCHC (RBC) [Mass/Vol] 32.8 g/dL 32.0-35.0 [facility] MCV Auto (RBC) [Entitic vol] Ordered By: Rose Ohara on 03-25-2022 MCV (RBC) [Entitic vol] 88.3 fL 80-100 [facility] Monocytes Auto (Bld) [#/Vol] Ordered By: Rose Ohara on 03-25-2022 Monocytes (Bld) [#/Vol] 0.7 10*3/uL 0.0-0.8 [facility] Monocytes/100 WBC Auto (Bld) Ordered By: Rose Ohara on 03-25-2022 Monocytes/100 WBC (Bld) 9.5 % [facility] Neutrophils Auto (Bld) [#/Vo l]Ordered By: Rose Ohara on 03-25-2022 Neutrophils (Bld) [#/Vol] 4.8 10*3/uL 1.8-7.7 [facility] Neutrophils/100 WBC Auto (Bl d)Ordered By: Rose Ohara on 03-25-2022 Neutrophils/100 WBC (Bld) 64.5 % [facility] No Panel InformationOrdered By: Rose Ohara on 03-25-2022 Estimated GFR () 45 mL/Min [facility] Comment on above: GFR estimated refere nce range: According to KDOQI guidelines, <60 ml/min/1.73m2 is sufficient to diagnose a patient with chronic kidney disease. Pharmacy Creatinine Clearance (Chem 39.92 [facility] Platelet mean volume Auto (B ld) [Entitic vol]Ordered By: Rose Ohara on 03-25-2022 Platelet mean volume (Bld) [Entitic vol] 8.2 fL 6.3-10.7 [facility] Platelets Auto (Bld) [#/Vol] Ordered By: Rose Ohara on 03-25-2022 Platelets (Bld) [#/Vol] 232 10*3/uL 150-450 [facility] Protein [Mass/volume] in Ser um or PlasmaOrdered By: Rose Ohara on 03-25-2022 Protein [Mass/Vol] 6.3 g/dL 6.1-7.9 [facility] RBC Auto (Bld) [#/Vol]Ordere d By: Rose Ohara on 03-25-2022 RBC (Bld) [#/Vol] 4.90 10*6/uL 3.60-5.00 [facility] Serum or plasma alanine mari otransferase measurement without P-5'-P (enzymatic activiOrdered By: Rose Ohara on 03-25-2022 ALT No additional P-5'-P [Catalytic activity/Vol] 23 U/L 10-60 [facility] Serum or plasma albumin/glob ulin mass ratioOrdered By: Rose Ohara on 03-25-2022 Albumin/Globulin [Mass ratio] 1.5 {ratio} [facility] Serum or plasma alkaline danial sphatase measurement (enzymatic activity/volume)Ordered By: Rose Ohara on 03-25-2022 ALP [Catalytic activity/Vol] 43 U/L 32-92 [facility] Serum or plasma aspartate am inotransferase measurement (enzymatic activity/volume)Ordered By: Rose Ohara on 03-25-2022 AST [Catalytic activity/Vol] 18 U/L 10-42 [facility] Serum or plasma calcium kandi urement (mass/volume)Ordered By: Rose Ohara on 03-25-2022 Calcium [Mass/Vol] 9.7 mg/dL 8.2-10.2 [facility] Serum or plasma chloride florentino surement (moles/volume)Ordered By: Rose Ohara on 03-25-2022 Chloride [Moles/Vol] 98 mmol/L 95-114 [facility] Serum or plasma glucose kandi urement (mass/volume)Ordered By: Rose Ohara on 03-25-2022 Glucose [Mass/Vol] 201 mg/dL 70-100 [facility] Comment on above: ADA recommended refe rence range Random Glucose Reference Range is dependent on time and content of last meal. Glucose of more than 200 mg/dL in a nonstressed, ambulatory subject supports the diagnosis of Diabetes Mellitus. Serum or plasma potassium me asurement (moles/volume)Ordered By: Rose Ohara on 03-25-2022 Potassium [Moles/Vol] 4.7 mmol/L 3.5-5.1 [facility] Serum or plasma sodium measu rement (moles/volume)Ordered By: Rose Ohara on 03-25-2022 Sodium [Moles/Vol] 139 mmol/L 136-146 [facility] Serum or plasma total biliru bin measurement (mass/volume)Ordered By: Rose Ohara on 03-25-2022 Bilirubin [Mass/Vol] 1.2 mg/dL 0.3-1.2 [facility] Serum or plasma total carbon dioxide measurement (moles/volume)Ordered By: Rose Ohara on 03-25-2022 CO2 [Moles/Vol] 27.4 mmol/L 22.0-30.0 [facility] Serum or plasma urea nitroge n measurement (mass/volume)Ordered By: Rose Ohara on 03-25-2022 Urea nitrogen [Mass/Vol] 29 mg/dL 07-30 [facility] TSH DL <= 0.005 mIU/L QnOrde red By: Rose Ohara on 03-25-2022 TSH Qn 0.89 m[IU]/L 0.45-5.33 [facility] TSH Qn Serum or plasma thyr oid stimulating hormone (TSH) measurement by high sensitivity met 0.45-5.33 [facility] BASIC METABOLIC PANELon 04-0 BUN/CREATININE RATIO NOT APPLICABLE Normal 6-22 [facility] Comment on above: Order Comment: FASTI NG:YES FASTING: YES Performed By: #### 4 05, [id number] #### [facility] [address] [place] [address] Rd, [address] [place] [address] C Wpf Developer: Baldemar Jones MD Calcium [Mass/Vol] 9.4 mg/dL Normal 8.6-10.4 [facility] Comment on above: Order Comment: FASTI NG:YES FASTING: YES Performed By: #### 4 96, 35606 #### [facility] [address], [address] [place] [address] C Wpf Developer: Baldemar Jones MD Chloride [Moles/Vol] 101 mmol/L Normal 98-110 [facility] Comment on above: Order Comment: FASTI NG:YES FASTING: YES Performed By: #### 4 96, 62030 #### [facility] [address], [address] [place] [address] C Wpf Developer: Baldemar Jones MD CO2 [Moles/Vol] 31 mmol/L Normal 20-32 [facility] Comment on above: Order Comment: FASTI NG:YES FASTING: YES Performed By: #### 4 96, 05609 #### [facility] [address], [address] [place] [address] C Wpf Developer: Baldemar Jones MD Creatinine [Mass/Vol] 0.84 mg/dL Normal 0.60-0.93 [facility] Comment on above: Order Comment: FASTI NG:YES FASTING: YES Result Comment: For patients >49 years of age, the reference limit for Creatinine is approximately 13% higher for people identified as -Burundian. Performed By: #### 4 96, 28176 #### [facility] [address], [address] [place] [address] C Wpf Developer: Baldemar Jones MD eGFR NON-AFR. MACANESE 69 mL/min/1.73m2 Normal > OR = 60 [facility] Comment on above: Order Comment: FASTI NG:YES FASTING: YES Performed By: #### 4 96, 33825 #### [facility] [address], [address] [place] [address] C Wpf Developer: Baldemar Jones MD GFR/1.73 sq M.predicted among blacks MDRD (S/P/Bld) [Vol rate/Area] 80 mL/min/{1.73_m2} Normal > OR = 60 [facility] Comment on above: Order Comment: FASTI NG:YES FASTING: YES Performed By: #### 4 96, 73623 #### [facility] [place] [address] C Wpf Developer: Baldemar Jones MD Glucose [Mass/Vol] 108 mg/dL High 65-99 [facility] Comment on above: Order Comment: FASTI NG:YES FASTING: YES Result Comment: Fasting reference interval For someone without known diabetes, a glucose value between 100 and 125 mg/dL is consistent with prediabetes and should be confirmed with a follow-up test. Performed By: #### 4 96, 36489 #### [facility] [address], [address] [place] [address] C Wpf Developer: Baldemar Jones MD Potassium [Moles/Vol] 4.5 mmol/L Normal 3.5-5.3 [facility] Comment on above: Order Comment: FASTI NG:YES FASTING: YES Performed By: #### 4 96, 01416 #### [facility] [address], [address] [place] [address] C Wpf Developer: Baldemar Jones MD Sodium [Moles/Vol] 143 mmol/L Normal 135-146 [facility] Comment on above: Order Comment: FASTI NG:YES FASTING: YES Performed By: #### 4 96, 50494 #### [facility] [address], [address] [place] [address] C Wpf Developer: Baldemar Jones MD Urea nitrogen [Mass/Vol] 22 mg/dL Normal 7-25 [facility] Comment on above: Order Comment: FASTI NG:YES FASTING: YES Performed By: #### 4 96, 70090 #### [facility] [place] [address] C Wpf Developer: Baldemar Jones MD HEMOGLOBIN A1con 02-13-2022 HEMOGLOBIN [...] for children. Performed By: #### 4 96, 40718 #### [facility] [address] [facility], [address] [place] [address] C Wpf Developer: Baldemar Jones MD No Panel InformationOrdered By: Bang Nunez on 01-09-2022 Adrenocorticotropic Hormone 39.5 pg/mL 7.2-63.3 [facility] Comment on above: ACTH reference inter bernarda for samples collected between 7 and 10 AM. Performed at: [facility] [id number] [place]: Braxton Austin PhD, Phone: [phone] ACTH reference inter bernarda for samples collected between 7 and10 AM.Performed at: [facility] [id number] Director: Braxton Austin PhD, Phone: [phone] Thyroxine (T4) free [Mass/vo lume] in Serum or PlasmaOrdered By: Bang Nunez on 01-09-2022 Free T4 [Mass/Vol] 0.81 ng/dL 0.61-1.12 [facility] Free T4 [Mass/Vol] Thyroxine (T4) free [Mass/volume] in Serum or Plasma 0.61-1.12 [facility] B TYPE NATRIURETIC PEPTIDE ( BNP)on 12-03-2021 Natriuretic peptide B (Bld) [Mass/Vol] 67 pg/mL Normal <100 [facility] Comment on above: Result Comment: BNP levels increase with age in the general population with the highest values seen in individuals greater than 75 years of age. Reference: J. Am. Jim. Cardiol. 2002; 40:976-982. Performed By: #### 3 7386, 33644 #### [facility] [address] [facility], [address] [place] [address] C Wpf Developer: Baldemar Jones MD BASIC METABOLIC PANELon 11-08 Calcium [Mass/Vol] 9.4 mg/dL Normal 8.6-10.4 [facility] Comment on above: Order Comment: FASTI NG:NO FASTING: NO Performed By: #### 3 7386, 89962 #### [facility] [address], [address] [place] [address] C Wpf Developer: Baldemar Jones MD Chloride [Moles/Vol] 99 mmol/L Normal 98-110 [facility] Comment on above: Order Comment: FASTI NG:NO FASTING: NO Performed By: #### 3 7386, 88927 #### [facility] [address], [address] [place] [address] C Wpf Developer: Baldemar Jones MD CO2 [Moles/Vol] 32 mmol/L Normal 20-32 [facility] Comment on above: Order Comment: FASTI NG:NO FASTING: NO Performed By: #### 3 7386, 19482 #### [facility] [place] [address] C Wpf Developer: Baldemar Jones MD Creatinine [Mass/Vol] 0.90 mg/dL Normal 0.60-0.93 [facility] Comment on above: Order Comment: FASTI NG:NO FASTING: NO Result Comment: For patients >49 years of age, the reference limit for Creatinine is approximately 13% higher for people identified as -Burundian. Performed By: #### 3 7386, 78684 #### [facility] [place] [address] C Wpf Developer: Baldemar Jones MD eGFR NON-AFR. MACANESE 64 mL/min/1.73m2 Normal > OR = 60 [facility] Comment on above: Order Comment: FASTI NG:NO FASTING: NO Performed By: #### 3 7386, 37471 #### [facility] [place] [address] C Wpf Developer: Baldemar Jones MD GFR/1.73 sq M.predicted among blacks MDRD (S/P/Bld) [Vol rate/Area] 75 mL/min/{1.73_m2} Normal > OR = 60 [facility] Comment on above: Order Comment: FASTI NG:NO FASTING: NO Performed By: #### 3 7386, 82594 #### [facility] [place] [address] C Wpf Developer: Baldemar Jones MD Glucose [Mass/Vol] 174 mg/dL High 65-139 [facility] Comment on above: Order Comment: FASTI NG:NO FASTING: NO Result Comment: Non-fasting reference interval For someone without known diabetes, a glucose value >125 mg/dL indicates that they may have diabetes and this should be confirmed with a follow-up test. Performed By: #### 3 7386, 88368 #### [facility] [place] [address] C Wpf Developer: Baldemar Jones MD Potassium [Moles/Vol] 3.7 mmol/L Normal 3.5-5.3 [facility] Comment on above: Order Comment: FASTI NG:NO FASTING: NO Performed By: #### 3 7386, 28995 #### [facility] [address], [address] [place] [address] C Wpf Developer: Baldemar Jones MD Sodium [Moles/Vol] 143 mmol/L Normal 135-146 [facility] Comment on above: Order Comment: FASTI NG:NO FASTING: NO Performed By: #### 3 7386, 64215 #### [facility] [place] [address] C Wpf Developer: Baldemar Jones MD Urea nitrogen [Mass/Vol] 35 mg/dL High 7-25 [facility] Comment on above: Order Comment: FASTI NG:NO FASTING: NO Performed By: #### 3 7386, 26870 #### [facility] [place] [address] C Wpf Developer: Baldemar Jones MD Urea nitrogen/Creatinine [Mass ratio] 39 mg/mg High 6- [facility] Comment on above: Order Comment: FASTI NG:NO FASTING: NO Performed By: #### 3 7386, 97575 #### [facility] [address] [place] [address] C Wpf Developer: Baldemar Jones MD ALBUMIN, RANDOM URINE W/CREA KEOCHANDNIrach 10-02-2021 ALBUMIN, URINE 0.9 mg/dL Normal See Note: [facility] Comment on above: Result Comment: Refe bailey Range: Reference Range Not established Performed By: #### 7 600, 6517, 03720 #### [facility] [address], [address] [place] [address] C Wpf Developer: Baldemar Jones MD ALBUMIN/CREATININE RATIO, RANDOM URINE [...] category. Performed By: #### 7 600, 6517, 13659 #### [facility] [address], [address] [place] [address] C Wpf Developer: Baldemar Jones MD Creatinine (U) [Mass/Vol] 69 mg/dL Normal 20-275 [facility] Comment on above: Performed By: #### 7 600, 6517, 57935 #### [facility] [place] [address] C Wpf Developer: Baldemar Jones MD COMPREHENSIVE METABOLIC PANE [facility] 10-02-2021 Albumin [Mass/Vol] 4.4 g/dL Normal 3.6-5.1 [facility] Comment on above: Performed By: #### 7 600, 6517, 35037 #### [facility] [place] [address] C Wpf Developer: Baldemar Jones MD Albumin/Globulin [Mass ratio] 1.7 {ratio} Normal 1.0-2.5 [facility] Comment on above: Performed By: #### 7 600, 6517, 80861 #### [facility] [address] [address] C Wpf Developer: Baldemar Jones MD ALP [Catalytic activity/Vol] 50 U/L Normal 37-153 [facility] Comment on above: Performed By: #### 7 600, 6517, 89062 #### [facility] of [place] [address] C Wpf Developer: Baldemar Jones MD ALT [Catalytic activity/Vol] 15 U/L Normal 6-29 [facility] Comment on above: Performed By: #### 7 600, 6517, 48748 #### [facility] [place] [address] C Wpf Developer: Baldemar Jones MD AST [Catalytic activity/Vol] 15 U/L Normal 10-35 [facility] Comment on above: Performed By: #### 7 600, 65, 49744 #### [facility] [place] [address] C Wpf Developer: Baldemar Jones MD Bilirubin [Mass/Vol] 1.2 mg/dL Normal 0.2-1.2 [facility] Comment on above: Performed By: #### 7 600, 6517, 58775 #### [facility] [place] [address] C Wpf Developer: Baldemar Jones MD BUN/CREATININE RATIO NOT APPLICABLE Normal 6-22 [facility] Comment on above: Performed By: #### 7 600, 65, 39702 #### [facility] [place] [address] C Wpf Developer: Baldemar Jones MD Calcium [Mass/Vol] 9.6 mg/dL Normal 8.6-10.4 [facility] Comment on above: Performed By: #### 7 600, 6517, 07572 #### [facility] [place] [address] C Wpf Developer: Baldemar Jones MD Chloride [Moles/Vol] 103 mmol/L Normal 98-110 [facility] Comment on above: Performed By: #### 7 600, 6517, 16305 #### [facility] [address], [address] [place] [address] C Wpf Developer: Baldemar Jones MD CO2 [Moles/Vol] 27 mmol/L Normal 20-32 [facility] Comment on above: Performed By: #### 7 600, 6517, 89005 #### [facility] [address], [address] [place] [address] C Wpf Developer: Baldemar Jones MD Creatinine [Mass/Vol] 0.81 mg/dL Normal 0.60-0.93 [facility] Comment on above: Result Comment: For patients >49 years of age, the reference limit for Creatinine is approximately 13% higher for people identified as -Burundian. Performed By: #### 7 600, 65, 65552 #### [facility] [address], [address] [place] [address] C Wpf Developer: Baldemar Jones MD eGFR NON-AFR. MACANESE 73 mL/min/1.73m2 Normal > OR = 60 [facility] Comment on above: Performed By: #### 7 600, 6516, 39238 #### [facility] [place] [address] C Wpf Developer: Baldemar Jones MD GFR/1.73 sq M.predicted among blacks MDRD (S/P/Bld) [Vol rate/Area] 85 mL/min/{1.73_m2} Normal > OR = 60 [facility] Comment on above: Performed By: #### 7 600, 65, 71527 #### [facility] [address], [address] [place] [address] C Wpf Developer: Baldemar Jones MD Globulin (S) [Mass/Vol] 2.6 g/dL Normal 1.9-3.7 [facility] Comment on above: Performed By: #### 7 600, 6517, 26340 #### [facility] of [address], [address] [place] [address] C Wpf Developer: Baldemar Jones MD Glucose [Mass/Vol] 109 mg/dL High 65-99 [facility] Comment on above: Result Comment: Fasting reference interval For someone without known diabetes, a glucose value between 100 and 125 mg/dL is consistent with prediabetes and should be confirmed with a follow-up test. Performed By: #### 7 600, 6517, 00580 #### [facility] [address], [address] [place] [address] C Wpf Developer: Baldemar Jones MD Potassium [Moles/Vol] 4.1 mmol/L Normal 3.5-5.3 [facility] Comment on above: Performed By: #### 7 600, 6517, 16696 #### [facility] [address], [address] [place] [address] C Wpf Developer: Baldemar Jones MD Protein [Mass/Vol] 7.0 g/dL Normal 6.1-8.1 [facility] Comment on above: Performed By: #### 7 600, 6517, 61715 #### [facility] [address], [address] [place] [address] C Wpf Developer: Baldemar Jones MD Sodium [Moles/Vol] 143 mmol/L Normal 135-146 [facility] Comment on above: Performed By: #### 7 600, 6517, 42376 #### [facility] [place] [address] C Wpf Developer: Baldemar Jones MD Urea nitrogen [Mass/Vol] 19 mg/dL Normal 7-25 [facility] Comment on above: Performed By: #### 7 600, 6517, 18051 #### [facility] of [address], [address] [place] [address] C Wpf Developer: Baldemar Jones MD LIPID PANEL, [facility] 09-08 Cholesterol [Mass/Vol] 106 mg/dL Normal <200 [facility] Comment on above: Order Comment: FASTI NG:YES FASTING: YES Performed By: #### 7 600, 6517, 67804 #### [facility] [address], [address] [place] [address] C Wpf Developer: Baldemar Jones MD Cholesterol in HDL [Mass/Vol] 44 mg/dL Low > OR = 50 [facility] Comment on above: Order Comment: FASTI NG:YES FASTING: YES Performed By: #### 7 600, 6517, 54165 #### [facility] [address], [address] [place] [address] C Wpf Developer: Baldemar Jones MD Cholesterol in LDL [Mass/Vol] [...] LDL-C. Theo KNAPP et al. KEZIA. 2013;310(19): 1335-8116 (http://education.[employer]/faq/FTB683) Performed By: #### 7 600, 8917, 09690 #### [facility] [address], [address] [place] [address] C Wpf Developer: Baldemar Jones MD Cholesterol.total/Chol esterol in HDL [Mass ratio] 2.4 {ratio} Normal <5.0 [facility] Comment on above: Order Comment: FASTI NG:YES FASTING: YES Performed By: #### 7 600, 6517, 08981 #### [facility] [address], [address] [place] [address] C Wpf Developer: Baldemar Jones MD NON HDL CHOLESTEROL 62 mg/dL (calc) Normal <130 [facility] Comment on above: Order Comment: FASTI NG:YES FASTING: YES Result Comment: For patients with diabetes plus 1 major ASCVD risk factor, treating to a non-HDL-C goal of <100 mg/dL (LDL-C of <70 mg/dL) is considered a therapeutic option. Performed By: #### 7 600, 0717, 67367 #### [facility] [address], [address] [place] [address] C Wpf Developer: Baldemar Jones MD Triglyceride [Mass/Vol] 185 mg/dL High <150 [facility] Comment on above: Order Comment: FASTI NG:YES FASTING: YES Performed By: #### 7 600, 5617, 38073 #### [facility] [address], [address] [place] [address] C Wpf Developer: Baldemar Jones MD Laboratory - Chemistry and C hemistry - challengeOrdered By: Rose Ohara on 08-17-2021 Lipase [Catalytic activity/Vol] 27.0 U/L [facility] Random cortisol measurementO rdered By: Rose Ohara on 08-17-2021 Cortisol [Mass/Vol] 10.1 ug/dL [facility] Comment on above: Reference range: AM 6 - 24 ug/dl PM <10 ug/dl Reference range: AM 6 - 24 ug/dl PM <10 ug/dl Cortisol [Mass/Vol] Random cortisol measurement [facility] Comment on above: Reference range: AM 6 - 24 ug/dl PM <10 ug/dl Creatinine (Bld) [Mass/Vol]O rdered By: Bang Nunez on 06-19-2021 Creatinine [Mass/Vol] 0.6 mg/dL 0.6-1.3 [facility] Comment on above: ER/ESD physician is notified/shown all ISTAT results. Critical values may be confirmed by laboratory testing if deemed necessary by ER attending doctor. ER/ESD physician is notified/shown all ISTAT results.Critical values may be confirmed by laboratory testing ifdeemed necessary by ER attending doctor. Creatinine [Mass/Vol] Whole blood creati nine measurement 0.6-1.3 [facility] Comment on above: ER/ESD physician is notified/shown all ISTAT results.Critical values may be confirmed by laboratory testing ifdeemed necessary by ER attending doctor. No Panel InformationOrdered By: Bang Nunez on 06-19-2021 POC Estimated GFR > 60 [facility] Comment on above: GFR estimated refere nce range: According to KDOQI guidelines, <60 ml/min/1.73m2 is sufficient to diagnose a patient with chronic kidney disease. POC Estimated GFR Non- Amer > 60 [facility] Glucose Glucometer (BldC) [M ass/Vol]Ordered By: Bang Nunez on 06-17-2021 Glucose [Mass/Vol] 124 mg/dL [facility] Comment on above: Random Glucose Refer ence Range is dependent on time and content of last meal. Glucose of more than 200 mg/dL in a nonstressed, ambulatory subject supports the diagnosis of Diabetes Mellitus. Glucose [Mass/Vol] Capillary blood gluc ose measurement by glucometer (mass/volume) [facility] Comment on above: Random Glucose Refer ence Range is dependent on time and content of last meal. Glucose of more than 200 mg/dL in a nonstressed, ambulatory subject supports the diagnosis of Diabetes Mellitus. COVID-19 Positive/Negativeon 02-13-2021 SARS-CoV-2 (COVID-19) N gene KIP+probe Ql (Resp) Negative Negative [facility] Comment on above: Reference: Negative Testing for SARS-CoV-2 by RT-PCR This test was developed and its performance characteristics determined by [employer] ([employer]) and validated at the [facility]. This test has not been FDA [...] developed and its performance characteristics determined by [employer] ([employer]) and validated at the [facility]. This test has not been FDA [...] (COVID-19) RNA KIP+probe Ql (Unsp spec) N/A [facility] No Panel Informationon 12-22 Bedside Glucose Comment Glu2: cleaned meter [facility] Dermatopathologyon Dermatopathology [facility] [address] [place] [id number] DERMATOPATHOLOGY REPORT Name:TOSHA MCNEAL [facility]. Rec #. [id number] Location: Date of Procedure: 11/28/2020 Race: Date [...] control slides stain appropriately. The prior biopsy [id number] was received and reviewed. The morphology is [...] the Department of Pathology at [facility]. The FDA does not require this test [...] A: Non sentinal lymph node. Excision. B: Seymour Lymph node count 1005. (Hospital Outpatient) Specimens Submitted As: A: NODE, RIGHT AXILLARY NON-SENTINEL LYMPH NODE B: NODE, RIGHT AXILLARY SENTINEL LYMPH NODE COUNT 1005 Gross Description: A: Received in formalin is a ackerman-yellow irregularly shaped piece of tissue measuring [id number]. The specimen is inked and embedded in toto. B: Received in formalin is one ackerman-yellow irregularly shaped piece of tissue measuring [id number]. 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 COMPARISON: None. ACCESSION NUMBER(S): [id number] ORDERING CLINICIAN: CEDRICK BERGER TECHNIQUE: DIVISION OF [...] lymph node localization to the right axilla. Sales And Marketing Executive images were sent to PACS. I personally reviewed the images/study and I agree with the findings as stated. This study was interpreted at [facility], [place], [place]. Electronically signed by: RICKI SALGADO MD [facility] Patient Profile - Adult v2on 11-28-2020 Patient Profile - Adult v2 This report has been cancelled. Normal [facility] Patient Profile - Preop v2on 11-28-2020 Patient Profile - Preop v2 Profile: Initial Info: How to be AddressedSUZANNE(1) Spoken Language PreferredEnglish (1) Source of Informationpatient Are you currently using the Personal Electronic Health Record or [employer] Stated Reason for Admissioninjection in my lymph nodes Primary Contact Name and Numberharry-spouse Limitations on Visitors/Phone Callsonly spouse may visit Patient Belongingsremains with patient; patient educated regarding responsibility for personal items Patient Belongings Remaining with Patientclothing; vision aids; dental appliance Medications Brought to Hospitalno General Health: Weight in kg94.2 kilogram(s) Weight in nry229.6 pound(s) Weight Methodactual (measured) Scale Typechair Height [...] Arrangementshouse Lives Withspouse Resource/Environmental Concernsnone Anticipated Transition [place] [facility] Anticipated at Transitionnone Substance: Current or [...] instruction; written material Cultural Considerationsnone Developmental Considerationsnone Oriental Orthodox Considerationsnone Other learner availableno [place] RiskPatient location auto qualifies him/her for HIGH RISK. Are there any cultural, spiritual, buddhism practices/values/needs that are important for us to [...] Profile - Adult v2 28-Nov-2020 07:19 Normal [facility] Preop Checkliston 11-28-2020 Preop Checklist Preop Checklist: Preop Checklist: Arrival [id number] Arrival Time07:00 Procedure Typeinjection of right arm excision scar Heart Rate65 beats per minute Respiratory Rate16 breath per minute Blood Pressure Ajodkfuq699 mm/Hg Blood Pressure Ticxnhheg87 mm/Hg NPO [id number] 10:30 ID Band Onyes Allergy Bandno known allergies Consent Signedyes H&P Completeyes EKG Performedyes Chest X-Ray Performednot ordered HCG Urine TestN/A Chlorhexadine Bath Givennot applicable Nasal Antiseptic Appliednot applicable Hair Washednot applicable Soap and water bath with hair shampoo the night before surgerynot applicable Hat placed on prior to transportnot applicable SCD's Appliednot applicable JNI Hose Appliednot ordered Denturesnot applicable remains with [...] 28-Nov-2020 07:26 by Evelin Lovett (PERLA) Normal [facility] CORONAVIRUS 2019, SCREEN ASY MPTOMATICon 11-26-2020 SARS-CoV-2 [...] patient management decisions. Fact sheet for providers: https://www.fda.gov/media/487714/download Fact sheet for patients: https://www.fda.gov/media/859916/download This test has received FDA Emergency Use Authorization (EUA) and has been verified by [facility] ([facility]). This test is only authorized for the duration of time that circumstances exist to justify the authorization of the emergency use of in vitro diagnostic tests for the detection of SARS-CoV-2 virus and/or diagnosis of COVID-19 infection under section 564(b)(1) of the Act, 21 U.S.C. 360bbb-3(b)(1), unless the authorization is terminated or revoked sooner. [facility] is certified under CLIA-88 as qualified to perform high complexity testing. Testing is performed in the [facility] laboratories located at [address] [place] [address]. Performed By: #### C OVSC #### [place] [address] Lab Specimen Source Nasal, Nasopharyngeal Normal [facility] Comment on above: Performed By: #### C OVSC #### [place] [address] Coronavirus 2019 RNA by PCR, Screening Asymptomticon 11-26-2020 Coronavirus 2019 RNA by PCR, Screening Asymptomtic NOT DETECTED See Below [facility] Work Phone: Comment on above: SOURCE: Nasal, [...] make patient management decisions.Fact sheet for providers: https://www.fda.gov/media/563487/downloadFact sheet for patients: https://www.fda.gov/media/268571/downloadThis test has received FDA Emergency Use Authorization (EUA) and has been verified by [facility] ([facility]). This test is only authorized for the duration of time that circumstances exist to justify the authorization of the emergency use of in vitro diagnostic tests for the detection of SARS-CoV-2 virus and/or diagnosis of COVID-19 infection under section 564(b)(1) of the Act, 21 U.S.C. 360bbb-3(b)(1), unless the authorization is terminated or revoked sooner. [facility] is certified under CLIA-88 as qualified to perform high complexity testing. Testing is performed in the [facility] laboratories located at [address] [place] [address]. Covid 19 Resultson 1 SARS-CoV-2 (COVID-19) RNA [...] You may also be contacted by the [facility] to see if any of your close [...] or Naproxen (Aleve) can also be used. Nzfa-wqk-gjyjhum cough and cold medicines can be used according to the instructions on the package. Some qzta-zol-xvbawqg medicines also contain acetaminophen. Make sure you [...] water are not available, use alcohol-based hand financial compliance officer. Avoid touching your eyes, nose, and mouth [...] [Moles/Vol] 15 mmol/L Normal 10 - 20 [facility] Comment on above: Performed By: #### B MP #### [address] [address] Calcium [Mass/Vol] 9.7 mg/dL Normal 8.6 - 10.3 [facility] Comment on above: Performed By: #### B MP #### [address] [address] Chloride [Moles/Vol] 99 mmol/L Normal 98 - 107 [facility] Comment on above: Performed By: #### B MP #### [address] [address] Creatinine [Mass/Vol] 0.64 mg/dL Normal 0.50 - 1.05 [facility] Comment on above: Performed By: #### B MP #### [address] [address] GFR- AM. >60 Normal >60 [facility] Comment on above: Result Comment: CALC ULATIONS OF ESTIMATED GFR ARE PERFORMED USING THE MDRD STUDY EQUATION FOR THE IDMS-TRACEABLE CREATININE METHODS. CLIN CHEM 2007;53:766-72 Performed By: #### B MP #### [address] [address] GFR-NON AM. >60 Normal >60 [facility] Comment on above: Performed By: #### B MP #### [address] [address] Glucose [Mass/Vol] 105 mg/dL High 74 - 99 [facility] Comment on above: Performed By: #### B MP #### [address] [address] HCO3 (Bld) [Moles/Vol] 30 mmol/L Normal 21 - 32 [facility] Comment on above: Performed By: #### B MP #### [address] [address] Potassium [Moles/Vol] 3.7 mmol/L Normal 3.5 - 5.3 [facility] Comment on above: Performed By: #### B MP #### [address] [address] Sodium [Moles/Vol] 140 mmol/L Normal 136 - 145 [facility] Comment on above: Performed By: #### B MP #### [address] [address] Urea nitrogen [Mass/Vol] 18 mg/dL Normal 6 - 23 [facility] Comment on above: Performed By: #### B MP #### [address] [address] Metabolic Panelon 11-21-2020 Anion gap [Moles/Vol] 15 mmol/L 10 - 20 [facility] Work Phone: Comment on above: Ordering Provider: Daniela REBOLLEDO [address] Calcium [Mass/Vol] 9.7 mg/dL 8.6 - 10.3 [facility] Work Phone: Comment on above: Ordering Provider: Daniela REBOLLEDO [address] Chloride [Moles/Vol] 99 mmol/L 98 - 107 [facility] urgery-S [facility] Work Phone: Comment on above: Ordering Provider: Daniela REBOLLEDO [address] CO2 [Moles/Vol] 30 mmol/L 21 - 32 [facility] y-[facility] Work Phone: Comment on above: Ordering Provider: Daniela REBOLLEDO [address] Creatinine [Mass/Vol] 0.64 mg/dL See Below [facility] Work Phone: Comment on above: Reference Range: 0.5 0 - 1.05 Ordering Provider: Daniela REBOLLEDO [address] Glucose [Mass/Vol] 105 mg/dL above high threshold 74 - 99 US-Dlvtdyl-J [facility] Work Phone: Comment on above: Ordering Provider: Daniela REBOLLEDO [address] Potassium [Moles/Vol] 3.7 mmol/L 3.5 - 5.3 [facility] Surgery[facility] Work Phone: Comment on above: Ordering Provider: Daniela REBOLLEDO [address] Sodium [Moles/Vol] 140 mmol/L 136 - 145 [facility] c[facility]S [facility] Work Phone: Comment on above: Ordering Provider: Daniela REBOLLEDO [address] Urea nitrogen [Mass/Vol] 18 mg/dL 6 - 23 JV-Uwzulca-L [facility] Work Phone: Comment on above: Ordering Provider: Daniela REBOLLEDO [address] Otheron 11-21-2020 >60 >60 IS-Zgzudqj-G [facility] Work Phone: Comment on above: CALCULATIONS OF ASHA MATED GFR ARE PERFORMED USING THE MDRD STUDY EQUATION FOR THE IDMS-TRACEABLE CREATININE METHODS. CLIN CHEM 2007;53:766-72 Ordering Provider: Daniela Hernandez19 428 1 HJ-Brtmyjc-Y [facility] Work Phone: [phone] ZA-Ohtqkzs-T [facility] Work Phone: Sinus rhythm with 1s t degree AV block MP-Pcbnzfm-S [facility] Work Phone: [email or web address] ?RetrieveTestByDateTime?P yshcwjPP=[id number]&Date=1 03-07-2021&Time=11%3a49%3a 35%3a00&TestType=ECG&Site =12&OutputType=PDF&Ext=PD F CM-Cvjivwm-U [facility] [place] Work Phone: 10 1 JK-Yyilxxv-F [facility] Work Phone: 65 1 OE-Udwzwqh-W [facility] Work Phone: [phone] 1 SU-Zeunurn-N [facility] Work Phone: 88 1 OB-Khkwgxg-D [facility] Work Phone: [phone] GJ-Nosusuu-G [facility] Work Phone: 63 1 VQ-Olgbpqh-P [facility] Work Phone: -[phone] 1 DC-Dykwkui-R [facility] Work Phone: 66 1 YW-Pxbohwu-B [facility] Work Phone: [phone] NZ-Olxofxj-E [facility] Work Phone: [phone] 1 AY-Jhfadxv-H [facility] Work Phone: [phone] GD-Rslxbvu-Q [facility] [place] Work Phone: Abnormal BC-Qqtndtv-W [facility] [place] Work Phone: Initial Visit (General Surge ry)on [...] be. We will plan for surgery at [facility] after the new year. Preadmission testing will be obtained. Dictation software was used in the creation of this note and not corrected for typographical or grammatical errors Chief Complaint A telephone visit (audio only) between the patient (at the originating site) and the provider (at the distant site) was utilized to provide this telehealth service. Verbal consent was requested and obtained from TOSHA ELIZABET on this date, 10/23/2020 08:30 AM , for a telehealth visit. Right arm melanoma History of Present Xyoecca95-lngm-ryk woman referred to me by Dr. Nunez [...] history never smoker, , lives in the [facility] Medications include Ocuvite eyedrops, alendronate, [...] Time Vital Sign Value Performing Clinician Facility 12-26-2024 12:59-0500 Body temperature 97.5 [degF] Wild Furlong DO Work Phone: [facility] 12-26-2024 12:59-0500 Diastolic blood pressure 64 mm[Hg] Wild Furlong DO Work Phone: [facility] 12-26-2024 12:59-0500 Heart rate 82 /min Wild Furlong DO Work Phone: [facility] 12-26-2024 12:59-0500 Respiratory rate 16 /min Wild Furlong DO Work Phone: [facility] 12-26-2024 12:59-0500 SaO2% (BldA) [Mass fraction] 98 % Wild Furlong DO Work Phone: [facility] 12-26-2024 12:59-0500 Systolic blood pressure 162 mm[Hg] Wild Furlong DO Work Phone: [facility] 12-15-2023 10:17-0500 Body height 152.4 cm DO Wild Furlong Work Phone: [facility] 12-15-2023 10:17-0500 Body mass index (BMI) [Ratio] 41 kg/m2 DO Wild Furlong Work Phone: [facility] 12-15-2023 10:17-0500 Body temperature 97.3 [degF] DO Wild Furlong Work Phone: [facility] 12-15-2023 10:17-0500 Body weight 95.25 kg DO Wild Furlong Work Phone: [facility] 12-15-2023 10:17-0500 Diastolic blood pressure 73 mm[Hg] DO Wild Furlong Work Phone: [facility] 12-15-2023 10:17-0500 Heart rate 55 /min DO Wild Furlong Work Phone: [facility] 12-15-2023 10:17-0500 Respiratory rate 16 /min DO Wild Furlong Work Phone: [facility] 12-15-2023 10:17-0500 Systolic blood pressure 150 mm[Hg] DO Wild Furlong Work Phone: [facility] 08-11-2023 10:23-0400 Body temperature 97.2 [degF] DO Wild Furlong Work Phone: [facility] 08-11-2023 10:23-0400 Body weight 99.79 kg DO Wild Furlong Work Phone: [facility] 08-11-2023 10:23-0400 Diastolic blood pressure 77 mm[Hg] DO Wild Furlong Work Phone: [facility] 08-11-2023 10:23-0400 Heart rate 56 /min DO Wild Furlong Work Phone: [facility] 08-11-2023 10:23-0400 Respiratory rate 16 /min DO Wild Furlong Work Phone: [facility] 08-11-2023 10:23-0400 SaO2% (BldA) [Mass fraction] 95 % DO Wild Furlong Work Phone: [facility] 08-11-2023 10:23-0400 Systolic blood pressure 155 mm[Hg] DO Wild Furlong Work Phone: [facility] 04-13-2023 09:19-0400 Body temperature 97.9 [degF] DO Wild Furlong Work Phone: [facility] 04-13-2023 09:19-0400 Body weight 99.33 kg DO Wild Furlong Work Phone: [facility] 04-13-2023 09:19-0400 Diastolic blood pressure 67 mm[Hg] DO Wild Furlong Work Phone: [facility] 04-13-2023 09:19-0400 Heart rate 64 /min DO Wild Furlong Work Phone: [facility] 04-13-2023 09:19-0400 Respiratory rate 16 /min DO Wild Furlong Work Phone: [facility] 04-13-2023 09:19-0400 SaO2% (BldA) [Mass fraction] 97 % DO Wild Furlong Work Phone: [facility] 04-13-2023 09:19-0400 Systolic blood pressure 148 mm[Hg] DO Wild Furlong Work Phone: [facility] 09-23-2022 08:25-0500 Body temperature 97.8 [degF] DO Wild Furlong Work Phone: [facility] 09-23-2022 08:25-0500 Body weight 99.9 kg DO Wild Furlong Work Phone: [facility] 09-23-2022 08:25-0500 Diastolic blood pressure 66 mm[Hg] DO Wild Furlong Work Phone: [facility] 09-23-2022 08:25-0500 Heart rate 68 /min DO Wild Furlong Work Phone: [facility] 09-23-2022 08:25-0500 Respiratory rate 16 /min DO Wild Furlong Work Phone: [facility] 09-23-2022 08:25-0500 SaO2% (BldA) [Mass fraction] 94 % DO Wild Furlong Work Phone: [facility] 09-23-2022 08:25-0500 Systolic blood pressure 153 mm[Hg] DO Wild Furlong Work Phone: [facility] 07-01-2022 10:32-0400 Body temperature 97.8 [degF] DO Wild Furlong Work Phone: [facility] 07-01-2022 10:32-0400 Body weight 99.33 kg DO Wild Furlong Work Phone: [facility] 07-01-2022 10:32-0400 Diastolic blood pressure 75 mm[Hg] DO Wild Furlong Work Phone: [facility] 07-01-2022 10:32-0400 Heart rate 55 /min DO Wild Furlong Work Phone: [facility] 07-01-2022 10:32-0400 Respiratory rate 16 /min DO Wild Furlong Work Phone: [facility] 07-01-2022 10:32-0400 SaO2% (BldA) [Mass fraction] 98 % DO Wild Furlong Work Phone: [facility] 07-01-2022 10:32-0400 Systolic blood pressure 154 mm[Hg] DO Wild Furlong Work Phone: [facility] 03-31-2022 13:24-0400 Body temperature 97 [degF] DO Wild Furlong Work Phone: [facility] 03-31-2022 13:24-0400 Body weight 98.42 kg DO Wild Furlong Work Phone: [facility] 03-31-2022 13:24-0400 Diastolic blood pressure 74 mm[Hg] DO Wild Furlong Work Phone: [facility] 03-31-2022 13:24-0400 Heart rate 62 /min DO Wild Furlong Work Phone: [facility] 03-31-2022 13:24-0400 Respiratory rate 16 /min DO Wild Furlong Work Phone: [facility] 03-31-2022 13:24-0400 SaO2% (BldA) [Mass fraction] 96 % DO Wildlewis Pendletonlong Work Phone: [facility] 03-31-2022 13:24-0400 Systolic blood pressure 150 mm[Hg] DO Wild Furlong Work Phone: [facility] 10-01-2020 10:47-0500 Body height 157.99 cm DO Wildlewis Pendletonlong Work Phone: [facility] 1950 00:00-0500 >na< Obdulio Flowers Dept. of Adriano matology Encounters Encounter Date Encounter Type Care Provider Facility Start: 04-17-2025 ambulatory Shavon M. Lue Facility:[facility] [place] Start: 01-17-2025 End: 01-17-2025 ambulatory [facility] Start: 01-16-2025 End: 01-16-2025 ambulatory Shavon M. Lue Facility:[facility] Start: 01-07-2025 ambulatory Shavon Lue Facility:[facility] [place] Start: 01-03-2025 End: 01-03-2025 ambulatory [facility] Start: 12-31-2024 ambulatory Shavon Lue Facility:[facility] [place] Start: 12-26-2024 Registered Recurring Wild daigle DO [facility] Work Phone: Start: 12-26-2024 End: 12-26-2024 ambulatory Wild Furlong DO Work Phone: [facility] Work Phone: Start: 12-26-2024 End: 12-26-2024 Patient encounter procedure Wild Furlong DO [facility] Work Phone: Start: 12-11-2024 End: 02-04-2025 External Result Encounter Rose Ohara MD Work Phone: [facility] External [facility] Unsolicited Start: 12-11-2024 End: 12-11-2024 External Result Encounter Rose Ohara MD Work Phone: [facility] External Department Unsolicited Start: 08-16-2024 End: 08-16-2024 ambulatory [facility] Start: 07-16-2024 End: 07-16-2024 ambulatory [facility] Start: 07-16-2024 End: 07-16-2024 ambulatory [facility] Start: 06-22-2024 End: 06-22-2024 ambulatory [facility] Start: 06-07-2024 End: 06-07-2024 ambulatory [facility] Start: 05-18-2024 End: 05-18-2024 ambulatory [facility] Start: 03-23-2024 End: 03-23-2024 ambulatory [facility] Start: 03-20-2024 End: 03-20-2024 ambulatory [facility] Start: 01-11-2024 End: 01-11-2024 ambulatory [facility] Start: 01-11-2024 End: 01-11-2024 ambulatory [facility] Start: 12-28-2023 End: 12-29-2023 ambulatory IRMA CORTEZ Not Available Start: 12-26-2023 End: 12-26-2023 ambulatory IRMA BYERSY Not Available Start: 12-23-2023 End: 12-23-2023 ambulatory [facility] Start: 12-21-2023 End: 12-22-2023 ambulatory IRMA BYERSY Not Available Start: 12-21-2023 End: 12-21-2023 Admission to same day surgery center Irmapauline Cortez ELECTRONIC TEST TECHNICIAN [facility] Comment on above: Aftercare following left knee joint replacement surgery (Primary Dx); Acute pain of left knee; Stiffness of left knee; Primary osteoarthritis of left knee Start: 12-21-2023 End: 12-21-2023 ambulatory Irma Cortez ELECTRONIC TEST TECHNICIAN [facility] Start: 12-21-2023 Bamboo flowsheet Irma Cortez ELECTRONIC TEST TECHNICIAN [facility] Start: 12-21-2023 Bamboo flowsheet Irma Cortez ELECTRONIC TEST TECHNICIAN [facility] Start: 12-19-2023 End: 12-19-2023 Admission to same day surgery center Shan Haskins ELECTRONIC TEST TECHNICIAN [facility] Comment on above: Aftercare following left knee joint replacement surgery (Primary Dx); Acute pain of left knee; Stiffness of left knee; Primary osteoarthritis of left knee Start: 12-19-2023 End: 12-20-2023 ambulatory Shan Haskins ELECTRONIC TEST TECHNICIAN [facility] Start: 12-19-2023 Bamboo flowsheet Shan Haskins PT A [facility] Start: 12-19-2023 Bamboo flowsheet Shan Haskins PT A [facility] Start: 12-15-2023 End: 12-15-2023 ambulatory DO Wild Furlong Work Phone: [facility] Work Phone: Start: 12-15-2023 End: 12-15-2023 Patient encounter procedure DO Wild Furlong Work Phone: [facility] Work Phone: Start: 12-15-2023 Registered Recurring DO Wild Furlong Work Phone: [facility] Work Phone: Start: 12-14-2023 End: 12-14-2023 ambulatory IRMA CORTEZ Not Available Start: 12-14-2023 End: 12-14-2023 Admission to same day surgery center Irma Cortez ELECTRONIC TEST TECHNICIAN [facility] Comment on above: Aftercare following left knee joint replacement surgery (Primary Dx); Acute pain of left knee; Stiffness of left knee; Primary osteoarthritis of left knee Start: 12-14-2023 End: 12-14-2023 ambulatory Irma Kelbley ELECTRONIC TEST TECHNICIAN [facility] Start: 12-14-2023 Bamboo flowsheet Irma Kelbley ELECTRONIC TEST TECHNICIAN [facility] Start: 12-14-2023 Bamboo flowsheet Irma Kelbley ELECTRONIC TEST TECHNICIAN [facility] Start: 12-13-2023 Registered Recurring DO Wild Furlong Work Phone: [facility] Work Phone: Start: 12-13-2023 End: 12-13-2023 ambulatory DO Wild Furlong Work Phone: [facility] Work Phone: Start: 12-13-2023 End: 12-13-2023 Patient encounter procedure DO Wild Furlong Work Phone: [facility] [place] Work Phone: Start: 2023 End: 2023 ambulatory IRMA KELBLEY Not Available Start: 12-07-2023 End: 12-08-2023 ambulatory IRMA KELBLEY Not Available Start: 12-05-2023 End: 12-05-2023 ambulatory IRMA KELBLEY Not Available Start: 12-02-2023 End: 12-02-2023 ambulatory IRMA KELBLEY Not Available Start: 11-30-2023 End: 11-30-2023 ambulatory IRMA KELBLEY Not Available Start: 11-25-2023 End: 11-25-2023 ambulatory IRMA KELBLEY Not Available Start: 11-23-2023 End: 11-23-2023 ambulatory IRMA KELBLEY Not Available Start: 11-21-2023 End: 11-21-2023 ambulatory IRMA KELBLEY Not Available Start: 11-09-2023 End: 11-09-2023 ambulatory Aly Higgins MD Facility:[facility] Start: 11-08-2023 End: 11-08-2023 ambulatory IRMA KELBLEY Not Available Start: 11-04-2023 End: 11-04-2023 ambulatory IRMA KELBLEY Not Available Start: 11-02-2023 End: 11-02-2023 ambulatory IRMA KELBLEY Not Available Start: 11-01-2023 End: 11-02-2023 ambulatory IRMA CORTEZ Not Available Start: 10-28-2023 End: 10-28-2023 ambulatory VIRGINIA MITCHELL Not Available Start: 10-26-2023 End: 10-26-2023 ambulatory VIRGINIA MITCHELL Not Available Start: 10-24-2023 End: 10-24-2023 ambulatory AMAN YU Not Available Start: 10-03-2023 End: 10-04-2023 ambulatory ALY Agrawal [facility] Start: 09-26-2023 End: 09-26-2023 ambulatory AMAN YU Not Available Start: 09-08-2023 End: 09-13-2023 ambulatory ALY Agrawal [facility] Start: 08-11-2023 End: 08-11-2023 ambulatory DO Wild Furlong Work Phone: [facility] Work Phone: Start: 08-11-2023 End: 08-11-2023 Registered Recurring DO Wild Furlong Work Phone: [facility] Work Phone: Start: 04-13-2023 End: 04-13-2023 ambulatory DO Wild Furlong Work Phone: [facility] Work Phone: Start: 04-13-2023 End: 04-13-2023 Registered Recurring DO Wild Furlong Work Phone: [facility] Work Phone: Start: 03-03-2023 End: 03-04-2023 ambulatory WILD G FURLONG Facility:[facility]1 Start: 09-23-2022 End: 09-23-2022 ambulatory DO Wild Furlong Work Phone: [facility] Work Phone: Start: 09-23-2022 End: 09-23-2022 Registered Recurring DO Wild Furlong [facility]: [facility] Start: 08-26-2022 End: 08-27-2022 ambulatory WILD G FURLONG Facility:[facility] Start: 08-11-2022 End: 08-12-2022 ambulatory WILD G FURLONG Facility:[facility] Start: 07-01-2022 End: 07-01-2022 Registered Recurring DO Wild Furlong [facility]: [facility] Start: 04-29-2022 End: 04-30-2022 ambulatory ROBERT LONG Facility:[facility] Start: 03-31-2022 End: 03-31-2022 Registered Recurring DO Wild Furlong Work Phone: [facility] Start: 12-16-2020 Obdulio Flowers [facility] t. of Dermatology Procedures Date Procedure Procedure Detail Performing Clinician Start: 12-11-2024 Complete blood count with white cell differential, automated Rose Ohara MD Work Phone: Start: 12-11-2024 Comprehensive metabolic panel Rose Ohara MD Work Phone: Start: 12-11-2024 Computed tomography of abdomen and pelvis with contrast Wild Furlong DO Work Phone: Start: 12-11-2024 CT of thorax with contrast Wild Furlong DO Work Phone: Start: 06-22-2024 Follow-up visit Follow-up ROBERT LONG Start: 12-13-2023 Computed tomography of abdomen and pelvis with contrast DO Wild Furlong Work Phone: Start: 12-13-2023 CT of thorax with contrast DO Wild Furlong Work Phone: Start: 12-13-2023 Ultrasonography of limb DO Wild Furlong Work Phone: Start: 08-09-2023 Ultrasonography of limb DO Wild Furlong Work Phone: Start: 05-13-2023 Mammography Irma Ke eber ELECTRONIC TEST TECHNICIAN Start: 04-07-2023 Ultrasonography of limb DO Wild Everwiselong Work Phone: Start: 12-21-2022 Computed tomography of abdomen and pelvis with contrast DO Wild Everwiselong Work Phone: Start: 12-21-2022 CT of thorax with contrast DO Wild Everwiselong Work Phone: Start: 09-21-2022 Ultrasonography of limb DO Wild Everwiselong Work Phone: Start: 06-29-2022 Computed tomography of abdomen and pelvis with contrast DO Wild Everwiselong Work Phone: Start: 06-29-2022 CT of thorax with contrast DO Wild Everwiselong Work Phone: Start: 03-29-2022 Ultrasonography of limb DO Wildii4blong Work Phone: Start: 12-28-2021 Computed tomography of abdomen and pelvis with contrast DO Wild Furlong Work Phone: Start: 12-28-2021 CT of thorax with contrast DO Wild Everwiselong Work Phone: Start: 09-24-2021 Ultrasonography of limb DO Wildii4blong Work Phone: Start: 06-19-2021 MRI of head DO Wild Everwiselong Work Phone: Start: 06-17-2021 Positron emission to mography with computed tomography DO [facility] Work Phone: Start: 03-27-2021 Ultrasound procedure on topographic region DO Wild Everwiselong Work Phone: Start: 12-16-2020 Obdulio Flowers Cataract surgery Wild Furl elena Ligation of fallopian tube D josette Furlong Repair of musculoten dinous cuff of shoulder Wild Furlong Plan of Treatment Date Care Activity Detail Author Start: 03-25-2026 Screening for malign ant neoplasm of colon [facility] Start: 12-26-2024 Patient referral [facility] Work Phone: Start: 07-08-2024 Influenza vaccination Influenza Vacc ine (#1) [facility] Start: 05-13-2024 Screening for malign ant neoplasm of breast Mammogram [facility] Start: 03-14-2024 Urine screening for protein Diabetes: Urine Protein Screening [facility] Start: 03-10-2024 Medicare Annual Well ness (AWV) Medicare Annual Wellness (AWV) [facility] Start: 12-28-2023 End: 12-28-2023 ambulatory 12/28/2023 2:30 PM EST Treatment [facility] [address] [facility] [address] [place] [address] Irma Cortez, ELECTRONIC TEST TECHNICIAN [facility] Start: 12-26-2023 End: 12-26-2023 ambulatory 12/26/2023 2:30 PM EST Treatment [facility] [address] [place] [address] Irma Cortez, ELECTRONIC TEST TECHNICIAN [facility] Start: 12-21-2023 End: 12-21-2023 ambulatory 12/21/2023 2:30 PM EST Treatment [facility] [address] [place] [address] Irma Cortez, ELECTRONIC TEST TECHNICIAN [facility] Start: 12-19-2023 End: 12-19-2023 ambulatory [facility] Comment on above: Arrived Start: 12-14-2023 End: 12-14-2023 ambulatory 12/14/2023 2:30 PM EST Treatment [facility] [address] [facility] [address] [place] [address] Irma Cortez, ELECTRONIC TEST TECHNICIAN Arrived [facility] Comment on above: Arrived Start: 12-08-2021 [facility] Start: 10-06-2021 [facility] Start: 07-15-2021 End: 07-15-2021 [facility] Start: 07-10-2021 [facility] Start: 06-29-2021 [facility] Start: 1960 Glaucoma screening Diabetes: R etinopathy Screening [facility] Start: 1950 Hemoglobin A1c measurement Diabetes: Hemoglobin A1C [facility] Start: 1949 Screening for malign ant neoplasm of colon [facility] Comprehensive metabo lic 1999 panel - Serum or Plasma [facility] Work Phone: [facility] metabo [facility] 1999 panel - Serum or Plasma [facility] Comprehensive metabo lic 1999 panel - Serum or Plasma [facility] Comprehensive metabo lic 1999 panel - Serum or Plasma [facility] Comprehensive metabo lic 1999 panel - Serum or Plasma [facility] Comprehensive metabo lic 1999 panel - Serum or Plasma [facility] CT Abdomen and Pelvi s W contrast IV [facility] CT Abdomen and Pelvi s W contrast IV [facility] CT Abdomen and Pelvi s W contrast IV [facility] CT Abdomen and Pelvi s W contrast IV [facility] CT Chest W contrast IV [facility] CT Chest W contrast IV [facility] CT Chest W contrast IV [facility] CT Chest W contrast IV [facility] Lactate dehydrogenas e [Enzymatic activity/volume] in Unspecified specimen [facility] Work Phone: Lactate dehydrogenas e [Enzymatic activity/volume] in Unspecified specimen [facility] Patient referral [facility] Work Phone: [facility] Work Phone: [facility] Immunizations Immunization Date Immunization Notes Care Provider Fa cili 09-12-2023 influenza virus vaccine, unspecified formulation Rose Ohara MD Work Phone: [facility] 1950 pneumococcal conjuga te vaccine, 7 valent Obdulio Flowers 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 Payers Date Payer Category Payer Self-pay [id number] 2018 Private Health Insurance [employer] Member Subscriber Plan / Payer (Effective 2018-Present) Name: Tosha Mcneal Relation to Subscriber: Self Name: Tosha Mcneal Payer ID: Not on file Type: Not on file Address: [place] [id number] 2018 Unknown 2014 Medicare 1960 Medicare [id number] 1959 Unknown [id number] 1949 Unknown [id number] 2.16.840.1.143039.3.579.2. 593 1949 Unknown [id number] 2.16.840.1.084623.3.579.2. 593 1949 Unknown [id number] 2.16.840.1.807800.3.579.2. 593 1949 Unknown [id number] 2.16.840.1.834635.3.579.2. 593 1949 Unknown [id number] 2.16.840.1.304725.3.579.2. 173 1949 Unknown [id number] 2.16.840.1.222141.3.579.2. 173 1949 Unknown [id number] 2.16.840.1.088901.3.579.2. 196 1949 Unknown [id number] 2.16.840.1.723208.3.579.2. 1259 1949 Unknown [id number] 2.16.840.1.170772.3.579.2. 1259 1949 Unknown [id number] 2.16.840.1.927596.3.579.2. 1259 1949 Unknown [id number] 2.16.840.1.330911.3.579.2. 1259 1949 Unknown [id number] 2.16.840.1.709008.3.579.2. 1259 1949 Unknown [id number] 2.16.840.1.964748.3.579.2. 125 1949 Unknown [id number] 2.16.840.1.660505.3.579.2. 125 1949 Unknown [id number] 2.16.840.1.459909.3.579.2. 1258 1949 Unknown [id number] 2.16.840.1.961966.3.579.2. 1258 1949 Unknown [id number] 2.16.840.1.876827.3.579.2. 125 1949 Unknown [id number] 2.16.840.1.539986.3.579.2. 125 1949 Unknown [id number] 2.16.840.1.710799.3.579.2. 125 1949 Unknown [id number] 2.16.840.1.184203.3.579.2. 125 1949 Unknown [id number] 2.16.840.1.435386.3.579.2. 1259 1949 Unknown [id number] 2.16.840.1.260828.3.579.2. 1259 1949 Unknown [id number] 2.16.840.1.164102.3.579.2. 125 1949 Unknown [id number] 2.16.840.1.007427.3.579.2. 1259 1949 Unknown [id number] 2.16.840.1.877806.3.579.2. 1259 1949 Unknown [id number] 2.16.840.1.674827.3.579.2. 1259 1949 Unknown [id number] 2.16.840.1.399863.3.579.2. 1259 1949 Unknown [id number] 2.16.840.1.552520.3.579.2. 1259 1949 Unknown [id number] 2.16.840.1.794557.3.579.2. 1286 1949 Unknown [id number] 2.16.840.1.416721.3.579.2. 1286 1949 Unknown [id number] 2.16.840.1.989781.3.579.2. 1286 1949 Unknown [id number] 2.16.840.1.815851.3.579.2. 128 1949 Unknown [id number] 2.16.840.1.470068.3.579.2. 1286 1949 Unknown [id number] 2.16.840.1.405362.3.579.2. 1286 1949 Unknown [id number] 2.16.840.1.368535.3.579.2. 1286 1949 Unknown [id number] 2.16.840.1.988687.3.579.2. 1286 1949 Unknown [id number] 2.16.840.1.161405.3.579.2. 727 1949 Unknown [id number] 2.16.840.1.892454.3.579.2. 727 Unknown [facility] [id number] Unknown [id number] 2.16.840.1.103660.3.579.2. 531 Social History Date Type Detail Facility Assertion Tobacco smoking consumption unknown (finding) [facility] Work Phone: Start: 12-16-2020 Dept[facility] D ermatology Start: 1950 Sex Assigned At Female F [facility] Start: 03-31-2022 End: 12-15-2023 Tobacco smoking status NHIS Never smoked tobacco (finding) [facility] Start: 11-04-2023 Tobacco use and exposure Smokeless tobacco non-user [facility] Start: 11-04-2023 Alcohol intake Ex-drinker (finding) [facility] Start: 11-04-2023 History of Social function [facility] Start: 11-04-2023 Tobacco use panel [facility] Start: 11-04-2023 Alcohol Comment Caffeine: 1-2 cups/d ay [facility] Start: 1950 Sex Assigned At Not on file N [facility] Start: 12-26-2024 Sex Female (finding) [facility] Medical Equipment Procedure Code Equipment Code [...] DS RESORB TRIANGLE 25MM FDA Start: 04-13-2019 Goals Date Patient Goal Desired Activity /State Functional Status Date Assessment Result Facility NEGATED: Highlighted row Functional performance Functional status health issues are not documented Disease [facility] Work Phone: Mental Status Date Assessment Result Facility NEGATED: Highlighted row Cognitive function [Interpretation] Cognitive status health issues are not documented Disease [facility] Work Phone: Clinical Notes 10-01-2020 to 01-17-2025 Note Date & Type Note Facility 01-17-2025 Note Cardiovascular Medic ine [facility] SUBJECTIVE Chief Complaint Patient presents with Congestive Heart Failure Hypertension Tosha Mcneal is a 74 y.o. female here for follow-up. HPI PMHx: HFpEF, HTN, HLD 01/17/2025 She notes her FINLEY and leg swelling are better. She does still have some FINLEY. She cannot wear compression stockings, they cause too much discomfort but cutting into her leg. Denies c/o CP, orthopnea, PND, dizziness/LH, palpitations, syncope. 01/03/2025 She c/o increased SOB and increased leg swelling. Left leg is worsen than right which is typical. She has been taking some extra lasix for a few days but no improvement in sx's. BP is mildly elevated today, she reports she hasn't taken her medications today. She has noticed a 9lb weight gain in the past few months. Denies c/o CP, PND, dizziness/LH, palpitations, syncope. 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 Type 2 diabetes mellitus (CMS/HCC) S/P total knee replacement using cement, left Encounter for antineoplastic immunotherapy Enlarged pituitary gland Rupture of operation wound Past Medical History: Diagnosis Date CHF (congestive heart failure) (CMS/HCC) Diabetes mellitus (CMS/HCC) Hyperlipidemia Hypertension Family History Problem Relation Name Age of Onset Coronary artery disease Father Heart attack Father Social History Tobacco Use Smoking status: Never Smokeless tobacco: Never Substance Use Topics Alcohol use: Never Drug use: Not Currently Allergies Allergen Reactions Jardiance [Empagliflozin] Rash ROS Constitutional: Positive for weight loss (down 4# per her home scale since seen 2 weeks ago). Cardiovascular: Positive for dyspnea on exertion and leg swelling. Musculoskeletal: Positive for arthritis and joint pain. All other systems reviewed and are negative. OBJECTIVE Visit Vitals BP 151/61 (BP Location: Right arm, Patient Position: Sitting) Pulse 80 Ht 1.524 m (5') Wt 103 kg (226 lb) SpO2 99% BMI 44.14 kg/m??? Smoking Status Never BSA 2.09 m??? Medications: Current Outpatient Medications: allopurinol (Zyloprim) 100 mg tablet, take 1 tablet by mouth IN THE MORNING ( START after FLARE UP RESOLVES ), Disp: , Rfl: amLODIPine (Norvasc) 5 mg tablet, Take 1 tablet by mouth in the morning., Disp: , Rfl: aspirin 81 mg chewable tablet, in the morning., Disp: , Rfl: carvedilol (Coreg) 25 mg tablet, Take 25 mg by mouth in the morning and at bedtime., Disp: , Rfl: furosemide (Lasix) 40 mg tablet, Take 1 tablet (40 mg) by mouth two times daily., Disp: 190 tablet, Rfl: 3 insulin NPH and regular human (NovoLIN 70-30 FlexPen U-100) 100 unit/mL (70-30) injection, Novolin 70-30 FlexPen U-100, Disp: , Rfl: lisinopril 40 mg tablet, Take 1 tablet (40 mg) by mouth once daily as directed., Disp: 90 tablet, Rfl: 3 magnesium oxide (Mag-Ox) 400 mg tablet, Magnesium, Disp: , Rfl: metFORMIN (Glucophage) 1,000 mg tablet, Take 1,000 mg by mouth with breakfast and with evening meal., Disp: , Rfl: rosuvastatin (Crestor) 10 mg tablet, rosuvastatin 10 mg tablet take 1 tablet by mouth once daily, Disp: , Rfl: Tresiba FlexTouch U-100 100 unit/mL (3 mL) injection, Inject TEN Units under the skin NIGHTLY, Disp: , Rfl: ergocalciferol (Vitamin D-2) 1.25 MG (24582 Units) capsule, Take 1 capsule by mouth 1 (one) time per week., Disp: , Rfl: furosemide (Lasix) 40 mg tablet, Take 1 tablet (40 mg) by mouth if needed in the morning and at bedtime (take for next 2-3 days as needed for increased water retention and leg swelling)., Disp: 30 tablet, Rfl: 11 Physical Exam Vitals reviewed. Constitutional: Appearance: Normal appearance. She is obese. HENT: Head: Normocephalic and atraumatic. Right Ear: External ear normal. Left Ear: External ear normal. Eyes: Extraocular Movements: Extraocular movements intact. Conjunctiva/sclera: Conjunctivae normal. Pupils: Pupils are equal, round, and reactive to light. Neck: Vascular: No carotid bruit. Cardiovascular: Rate and Rhythm: Normal rate and regular rhythm. Pulses: Normal pulses. Heart sounds: Normal heart sounds. Pulmonary: Effort: Pulmonary effort is normal. Breath sounds: Normal breath sounds. Abdominal: General: Bowel sounds are normal. Palpations: Abdomen is soft. Musculoskeletal: Cervical back: Neck supple. Right lower leg: Edema present. Left lower leg: Edema present. Comments: +2 BLE edema Skin: General: Skin is warm and dry. Ne (more content not included)... [facility] 01-17-2025 Note Patient here for 2 w stebbins follow up for increased leg swelling and SOB. Lasix increased at last visit. Patient past medical history CHF, HTN stage 3 chronic kidney disease, Diabetes and FINLEY. Patient sates she still has some SOB, and swelling not like it was. Patient states she is not wearing support stocking due to the stockings increasing the size of her ankles. Patient denies chest pain, dizziness,or bleeding. Patinet states she see her oncologist and was told she has a spot on her left kidney. Patient state she will have another scan on her kidney in 3 months. Review of Systems Cardiovascular: Positive for dyspnea on exertion and leg swelling. All other systems reviewed and are negative. [facility] 01-16-2025 Note Urology Office/Clini c Note Chief Complaint referral HPI Staff 74yr old female pt referred Rose Ohara MD for hydronephrosis of right kidney, with normal renal function. CT done 12/11/24. Denies all urinary symptoms today. No other concerns. History of Present Illness Tests reviewed: reviewed UA, external referral records, CT scan, CMP, notes I have reviewed the previous health record information and history for this patient from external providers. I have reviewed and verified the staff HPI to be accurate for this encounter. Review of Systems PHQ Score Initial Depression Screen Score: 0 SCORE ROS - Provider Constitutional: denies weight loss, denies hot flashes. Eyes: denies eye problems. Gastrointestinal: denies nausea, denies vomiting. Cardiovascular: denies chest pain or angina. Integumentary: no dryness Musculoskeletal: denies musculoskeletal symptoms. ENMT: denies otolaryngeal symptoms. Respiratory: no shortness of breath. Heme/Lymph: denies easy bleeding tendency, denies easy bruising tendency. Psychiatric: no confusion, no anxiety. Genitourinary: See HPI. Physical Exam Vitals & Measurements HR: 78(Peripheral) RR: 18 BP: 134/70 HT: 60 in HT: 153 cm WT: 103.9 kg WT: 229.06 lb BMI: 44.38 General Appearance: alert , no acute distress, well nourished, well developed female. Head: normocephalic . Eyes: normal orbit and globe. ENMT: normal examination of external ears. Chest: symmetric chest rise, respirations non labored . Cardiovascular: regular rate and rhythm. Abdomen: soft , non distended, no tenderness Genitourinary: bladder nonpalpable, no flank tenderness. Skin: warm, dry, no bruising. Psychiatric: cooperative, affect appropriate for age, normal judgement, euthymic mood. Assessment/Plan Tosha is a 74 yo female new pt referred by Dr. Rose Ohara for right hydroureteronephrosis. Hx of removal of malignant melanoma ~4 yrs ago (no radiation) 1. Hydroureteronephrosis (N13.30: Unspecified hydronephrosis) CT AP w con 12/13/23 [facility] [place] Unremarkable kidneys and bladder. Personal review: Minimal R hydro. CT AP w con [place]11[place]24 [facility] [place] No enhancing renal mass renal mass. R hydroureteronephrosis wo obstructing stone or mass. Finding is nonspecific. Underlying UVJ stricture cannot be excluded. Minimal bladder distention. -Mild-mod on review, decompresses by bowel, distal 1/3 ureter Most recent renal function 12/11/24 - BUN 21, Cre 0.96, eGFR >60 BBS 9. UA today shows small leuks, negative for blood. Denies issues or bother with urination. Reviewed imaging results. Advised pt hydro is mild however was not present year prior. Discussed possible etiologies. Also discussed options and risks/benefits including NM renal scan vs ureteroscopy w poss stent placement vs monitoring every few months. Pt prefers to monitor for now given lack of symptoms and normal renal function. Risk of prolonged obstruction discussed including renal failure -F/u in 3 mos w/ GRACE (recall placed). Pt to call if experiencing issues prior. -Will proceed with cysto, right diagnostic ureteroscopy if no improvement 2. History of kidney stones (Z87.442: Personal history of urinary calculi) Shares she has had 2 stones, years apart. Has not had any episodes recently. Advised pt current imaging is neg for stones. -Dietary modifications Follow-up With When Contact Information Ramsye JUAREZ, Shavon Lin, URL, [facility] [address], [place] [address]- [phone] Additional Instructions: 3 mos w/ GRACE Patient Education Hydronephrosis I, Chaya Alicea, personally scribed for Dr. Mustafa on 01/16/2025 10:08:16. . Documentation recorded by the scribe, Chaya Alicea, accurately reflects the services(s) I performed and decisions made by me. Authenticated by Dr. Mustafa on 01/16/2025 10:28:10. Problem List/Past Medical History Ongoing Arm fracture Arthritis Carpal tunnel syndrome Diabetes type 2 Gout History of kidney stones Hydroureteronephrosis Hypercholesteremia Hypertension Osteoporosis Pilonidal cyst Historical No qualifying data Procedure/Surgical History Bilateral tubal ligation, History of knee surgery, History of repair of rotator cuff, Phacoemulsification of cataract with intraocular lens implantation. Medications Acidophilus Probiotic Blend allopurinol amLODIPine 5 mg Tab, 5 mg= 1 tab(s) aspirin, 81 mg, Oral, Daily carvedilol 25 mg Tab, 25 mg= 1 tab(s) furosemide 40 mg Tab, 40 mg= 1 tab(s) lisinopril 40 mg Tab, 40 mg= 1 tab(s) magnesium sulfate metformin 1000 mg Tab, 1000 mg= 1 tab(s) Novolin N, See Instructions rosuvastatin 10 mg Tab, 10 mg= 1 tab(s) Trulicity Pen, See Instructions Allergies No Known Allergies Social History Alcohol Never., 01/16/2025 Tobacco Never (less than 100 in lifetime) Tobacco Use:. Never Smokeless Tobacco Use:., 01/16/2025 Family History Leukemia: Father. Stroke: Mother. Immunizations Vaccin (more content not included)... [facility] Comment on above: Result Comment: Elec tronically Signed By: Ramsey JUAREZ, Shavon Lin\.br\Date and Time Signed: 01/16/25 10:28 EDT\.br\Electronically Co-Signed By: Chaya Alicea\.br\Date and Time Co-Signed: 01/16/25 10:08 EDT 01-16-2025 Note Patient Education Urology Hydronephrosis Hydronephrosis is the swelling of one or both kidneys due to a blockage that stops urine from flowing out of the body. Kidneys filter waste from the blood and produce urine. This condition can lead to kidney failure and may become life-threatening if not treated promptly. What are the causes? In infants and children, common causes include problems that occur when a baby is developing in the womb. These can include problems in the kidneys or in the tubes that drain urine into the bladder (ureters). In adults, common causes include: ??? Kidney stones. ??? . ??? A tumor or cyst in the abdomen or pelvis. ??? An enlarged prostate gland. Other causes include: ??? Bladder infection. ??? Scar tissue from a previous surgery or injury. ??? A blood clot. ??? Cancer of the prostate, bladder, uterus, ovary, or colon. What are the signs or symptoms? Symptoms of this condition include: ??? Pain or discomfort in your side (flank) or abdomen. ??? Swelling in your abdomen. ??? Nausea and vomiting. ??? Fever. ??? Pain when passing urine. ??? Feelings of urgency when you need to urinate. ??? Urinating more often than normal. In some cases, you may not have any symptoms. How is this diagnosed? This condition may be diagnosed based on: ??? Your symptoms and medical history. ??? A physical exam. ??? Blood and urine tests. ??? Imaging tests, such as an ultrasound, CT scan, or MRI. ??? A procedure to look at your urinary tract and bladder by inserting a scope into the urethra (cystoscopy). How is this treated? Treatment for this condition depends on where the blockage is, how long it has been there, and what caused it. The goal of treatment is to remove the blockage. Treatment may include: ??? Antibiotic medicines to treat or prevent infection. ??? A procedure to place a small, thin tube (stent) into a blocked ureter. The stent will keep the ureter open so that urine can drain through it. ??? A nonsurgical procedure that crushes kidney stones with shock waves (extracorporeal shock wave lithotripsy). ??? If kidney failure occurs, treatment may include dialysis or a kidney transplant. Follow these instructions at home: ??? Take wzqo-sas-glvatsr and prescription medicines only as told by your health care provider. ??? If you were prescribed an antibiotic medicine, take it exactly as told by your health care provider. Do not stop taking the antibiotic even if you start to feel better. ??? Rest and return to your normal activities as told by your health care provider. Ask your health care provider what activities are safe for you. ??? Drink enough fluid to keep your urine pale yellow. ??? Keep all follow-up visits. This is important. Contact a health care provider if: ??? You continue to have symptoms after treatment. ??? You develop new symptoms. ??? Your urine becomes cloudy or bloody. ??? You have a fever. Get help right away if: ??? You have severe flank or abdominal pain. ??? You cannot drink fluids without vomiting. Summary ??? Hydronephrosis is the swelling of one or both kidneys due to a blockage that stops urine from flowing out of the body. ??? Hydronephrosis can lead to kidney failure and may become life-threatening if not treated promptly. ??? The goal of treatment is to remove the blockage. It may include a procedure to insert a stent into a blocked ureter, a procedure to break up kidney stones, or taking antibiotic medicines. ??? Follow your health care provider's instructions for taking care of yourself at home, including instructions about drinking fluids, taking medicines, and limiting activities. This information is not intended to replace advice given to you by your health care provider. Make sure you discuss any questions you have with your health care provider. Document Revised: 02/10/2021 Document Reviewed: 02/10/2021 [employer] Patient Education ? 2023 [employer] [facility] 01-03-2025 Note Cardiovascular Medic ine [facility] SUBJECTIVE Chief Complaint Patient presents with Congestive Heart Failure Tosha Mcneal is a 74 y.o. female here for follow-up. HPI PMHx: HFpEF, HTN, HLD She c/o increased SOB and increased leg swelling. Left leg is worsen than right which is typical. She has been taking some extra lasix for a few days but no improvement in sx's. BP is mildly elevated today, she reports she hasn't taken her medications today. She has noticed a 9lb weight gain in the past few months. Denies c/o CP, PND, dizziness/LH, palpitations, syncope. 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 Type 2 diabetes mellitus (CMS/HCC) S/P total knee replacement using cement, left Encounter for antineoplastic immunotherapy Enlarged pituitary gland Rupture of operation wound Past Medical History: Diagnosis Date CHF (congestive heart failure) (CMS/HCC) Diabetes mellitus (CMS/HCC) Hyperlipidemia Hypertension Family History Problem Relation Name Age of Onset Coronary artery disease Father Heart attack Father Social History Tobacco Use Smoking status: Never Smokeless tobacco: Never Substance Use Topics Alcohol use: Never Drug use: Not Currently Allergies Allergen Reactions Jardiance [Empagliflozin] Rash ROS Constitutional: Positive for weight gain (11# since Jun 2024). Cardiovascular: Positive for dyspnea on exertion (worsening) and leg swelling (worsening). Musculoskeletal: Positive for arthritis and joint pain. All other systems reviewed and are negative. OBJECTIVE Visit Vitals BP 140/72 (BP Location: Left arm, Patient Position: Sitting) Pulse 58 Ht 1.524 m (5') Wt 103 kg (228 lb) SpO2 92% BMI 44.53 kg/m??? Smoking Status Never BSA 2.09 m??? Medications: Current Outpatient Medications: allopurinol (Zyloprim) 100 mg tablet, take 1 tablet by mouth IN THE MORNING ( START after FLARE UP RESOLVES ), Disp: , Rfl: amLODIPine (Norvasc) 5 mg tablet, Take 1 tablet by mouth in the morning., Disp: , Rfl: aspirin 81 mg chewable tablet, in the morning., Disp: , Rfl: carvedilol (Coreg) 25 mg tablet, Take 25 mg by mouth in the morning and at bedtime., Disp: , Rfl: insulin NPH and regular human (NovoLIN 70-30 FlexPen U-100) 100 unit/mL (70-30) injection, Novolin 70-30 FlexPen U-100, Disp: , Rfl: lisinopril 40 mg tablet, Take 1 tablet (40 mg) by mouth once daily as directed., Disp: 90 tablet, Rfl: 3 magnesium oxide (Mag-Ox) 400 mg tablet, Magnesium, Disp: , Rfl: metFORMIN (Glucophage) 1,000 mg tablet, Take 1,000 mg by mouth with breakfast and with evening meal., Disp: , Rfl: rosuvastatin (Crestor) 10 mg tablet, rosuvastatin 10 mg tablet take 1 tablet by mouth once daily, Disp: , Rfl: Tresiba FlexTouch U-100 100 unit/mL (3 mL) injection, Inject TEN Units under the skin NIGHTLY, Disp: , Rfl: ergocalciferol (Vitamin D-2) 1.25 MG (49334 Units) capsule, Take 1 capsule by mouth 1 (one) time per week., Disp: , Rfl: furosemide (Lasix) 40 mg tablet, Take 1 tablet (40 mg) by mouth if needed in the morning and at bedtime (take for next 2-3 days as needed for increased water retention and leg swelling)., Disp: 30 tablet, Rfl: 11 furosemide (Lasix) 40 mg tablet, Take 1 tablet (40 mg) by mouth two times daily., Disp: 190 tablet, Rfl: 3 Physical Exam Vitals reviewed. Constitutional: Appearance: Normal appearance. She is obese. HENT: Head: Normocephalic and atraumatic. Right Ear: External ear normal. Left Ear: External ear normal. Eyes: Extraocular Movements: Extraocular movements intact. Conjunctiva/sclera: Conjunctivae normal. Pupils: Pupils are equal, round, and reactive to light. Neck: Vascular: No carotid bruit. Cardiovascular: Rate and Rhythm: Normal rate and regular rhythm. Pulses: Normal pulses. Heart sounds: Normal heart sounds. Pulmonary: Effort: Pulmonary effort is normal. Breath sounds: Normal breath sounds. Abdominal: General: Bowel sounds are normal. Palpations: Abdomen is soft. Musculoskeletal: Cervical back: Neck supple. Right lower leg: Edema present. Left lower leg: Edema present. Comments: +2 BLE edema Skin: General: Skin is warm and dry. Neurological: General: No focal deficit present. Mental Status: She is alert and oriented to person, place, and time. Psychiatric: Mood and Affect: Mood normal. Behavior: Behavior normal. Thought Content: Thought content normal. Judgment: Judgment normal. Labs: No results found f (more content not included)... [facility] 01-03-2025 Note Patient here for 6 m o follow up diastolic dysfunction, hypertension, and hyperlipidemia. Had labs a few weeks ago. C/o worsening SOB and LE edema. She is up 11# since last visit in Jun 2024. Currently taking lasix 40mg daily, and sometimes takes an extra dose. She said recently this has not been helping her. Denies chest pain, palpitations, and lightheadedness/syncope. Review of Systems Constitutional: Positive for weight gain (11# since Jun 2024). Cardiovascular: Positive for dyspnea on exertion (worsening) and leg swelling (worsening). Musculoskeletal: Positive for arthritis and joint pain. All other systems reviewed and are negative. [facility] 06-22-2024 Note [facility]TP CARDIOLOGY PROGR ESS NOTE [...] at bedtime. ergocalciferol (Vitamin D-2) 1.25 MG (32959 Units) capsule Take 1 capsule by mouth [...] -Optimize medical management (more content not included)... [facility] 05-18-2024 Note Currently fluid over loaded and will increase diuretic x next 2-3 days to lasix 40 mg po bid, repeat BMP in 2 weeks to assess renal function and electrolytes/K+ and she voiced understanding of fluid restriction, NA restriction, daily weights and red flag symptoms of when to call office [facility] 05-18-2024 Note Fluid overloaded on exam today will increased lasix x next 2-3 days [facility] 05-18-2024 Note Hypertension is stable [facility] 05-18-2024 Note Hypertension is unch anged. States b/p at home is always < 130/80 Continue current medications. Blood pressure will be reassessed at the next regular appointment. [facility] 05-18-2024 Note Lipid abnormalities are unchanged. Pharmacotherapy as ordered. Continue crestor [facility] 05-18-2024 Note [facility]TP CARDIOLOGY PROGR ESS NOTE [...] at bedtime. 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 States b/p at home is always < 130/80 Continue current medications. Blood pressure will be reassessed at the next regular appointment. Essential hypertension Hypertension is stable Dyspnea on exertion Fluid overloaded on exam today will increased lasix x next 2-3 days Diastolic dysfunction Currently fluid overloaded and will increase diuretic x next 2-3 days to lasi (more content not included)... [facility] 05-18-2024 Note Patient here c/o SOB w/ [...] All other systems reviewed and are negative. [facility] 03-23-2024 Note UTP [place] CARDIOL OGY PROGRESS [...] or sooner as needed Robert Long MD [facility] 04-13-2023 Progress note Note Date/Time April 13, 2023 9:30am [facility] [place] [address] Hem/Onc Follow Up Note - OP Signed Patient: Tosha Mcneal MR#: [id number] : 1950 Acct:[id number] Age/Sex: 72 / F Type: REG RCR [...] She is leaving for a cruise to [place] this month. Continue 4 month followup with [...] related toxicities. Now following with dermatology at [facility] with no recurrence on skin exam. Surveillance ultrasound right axilla without recurrence. She will have routing f/u with sc in [address] CAP and [...] was referred to general surgery with Dr. Hernadno Mccartney who proceeded with wide local excision 09/05/2020 at [facility]. Outside review at [facility] showed at least 2.1 cm Breslow depth melanoma with 2 cm negative margins. She was referred to Dr. Cedrick Berger at [facility]. Right axillary sentinel lymph node biopsy [...] liver lesion. Her case was presented at [facility] cutaneous tumor board on 1prior to her metastatic staging. Discussion of referral to medical oncology fordiscussion of immunotherapy. The patient is now returning for medical oncology follow-up after review of all prior pathology and imaging. BRAF status is stillpending. She has healed well. She is a 10-year history of diabetes. She resides in [facility]. Today we reviewed immunotherapy counseling for [...] Therapies: 1. Initial wide local excision at [facility] 09/05/[address] Hernando cMcartney 2. Right sentinel lymph node biopsy 11/28/2020 at [facility] by Dr. Cedrick Berger 3. Delay of [...] 81 mg PO DAILY 10/01/20 [History Confirmed 06/07/23] spironolactone 25 mg tablet 25 mg PO [...] BUN 34 H, Creatinine 1.01, Est GFR (CKD-EPI) 58.780, Glucose 203 H, Calcium 9.1, Total [...] % (Auto) 62.3, Lymph % (Auto) 26.0, [place] % (Auto) 8.6, Eos % (Auto) 2.2, Baso % (Auto) 0.9, Nucleat RBC Rel Count 0.1, Neut # (Auto) 4.3, Lymph # (Auto) 1.8, [place] # (Auto) 0.6, Eos # (Auto) 0.2, [...] Plan - TNM Staging Staging: Stage: pIIIC ([id number]) Melanoma 5 year survival: 69% (1) Melanoma [...] without extracapsular extension. Dr. Cedrick Berger at [facility] surgical oncology group ordered metastatic staging with [...] with patient showing no evidence of recurrence, and6-month follow-up PET/CT and follow-up brain MRI in [...] for coordination of care (as documented) and rgha-rc-uvmc counseling of patient and/or family. Dictated By: Rose Ohara MD DD/ [id number] Signed By: <Electronically signed by MD Rose Ohara> 04/13/23 1751 [facility] Work Phone: 1(437) 591-998002-16-2023 Progress note Author Rose Ohara [facility] December 23, 2022 11:01am Note Date/Time December 23, 2022 9:06am [facility] [place] [id number] Hem/Onc Follow Up Note - OP Signed Patient: Tosha Mcneal MR#: [id number] : 1950 Acct:[id number] Age/Sex: 72 / F Type: REG RCR [...] related toxicities. Now following with dermatology at [facility] with no recurrence on skin exam. Surveillance [...] proceeded with wide local excision 09/05/2020 at [facility]. Outside review at [facility] showed at least 2.1 cm Breslow depth melanoma with 2 cm negative margins. She was referred to Dr. Cedrick Berger at [facility]. Right axillary sentinel lymph node biopsy [...] liver lesion. Her case was presented at [facility] cutaneous tumor board on 1prior to her metastatic staging. Discussion of referral to medical oncology fordiscussion of immunotherapy. The patient is now returning for medical oncology follow-up after review of all prior pathology and imaging. BRAF status is stillpending. She has healed well. She is a 10-year history of diabetes. She resides in [facility]. Today we reviewed immunotherapy counseling for [...] Therapies: 1. Initial wide local excision at [facility] 09/05/[address] Hernando Mccartney 2. Right sentinel lymph node biopsy 11/28/2020 at [facility] by Dr. Cedrick Berger 3. Delay of [...] % (Auto) 60.2, Lymph % (Auto) 24.8, [place] % (Auto) 11.9, Eos % (Auto) 1.9, Baso % (Auto) 1.2, Nucleat RBC Rel Count 0.2, Neut # (Auto) 4.1, Lymph # (Auto) 1.7, [place] # (Auto) 0.8, Eos # (Auto) 0.1, [...] Plan - TNM Staging Staging: Stage: pIIIC ([id number]) Melanoma 5 year survival: 69% (1) Melanoma [...] without extracapsular extension. Dr. Cedrick Berger at [facility] surgical oncology group ordered metastatic staging with [...] for coordination of care (as documented) and wqgj-oj-gffe counseling of patient and/or family. Dictated By: Rose Ohara MD DD/ Signed By: <Electronically signed by MD Rose Ohara> 12/23/22 1101 [facility] Work Phone: 1(403) 464-195511-17-2022 Progress note Author Rose Ohara [facility] September 23, 2022 10:21am Note Date/Time September 23, 2022 8:36am [facility] [place] [id number] Hem/Onc Follow Up Note - OP Signed Patient: Tosha Mcneal MR#: [id number] : 1950 Acct:[id number] Age/Sex: 71 / F Type: REG RCR [...] related toxicities. Now following with dermatology at [facility] with no recurrence on skin exam. Surveillance ultrasound right axilla without recurrence. She will have routing f/u with sc in [address] CAP and [...] proceeded with wide local excision 09/05/2020 at [facility]. Outside review at [facility] showed at least 2.1 cm Breslow depth melanoma with 2 cm negative margins. She was referred to Dr. Cedrick Berger at [facility]. Right axillary sentinel lymph node biopsy [...] liver lesion. Her case was presented at [facility] cutaneous tumor board on 1prior to her metastatic staging. Discussion of referral to medical oncology fordiscussion of immunotherapy. The patient is now returning for medical oncology follow-up after review of all prior pathology and imaging. BRAF status is stillpending. She has healed well. She is a 10-year history of diabetes. She resides in [facility]. Today we reviewed immunotherapy counseling for [...] Therapies: 1. Initial wide local excision at [facility] 09/05/[address] Hernando Mccartney 2. Right sentinel lymph node biopsy 11/28/2020 at [facility] by Dr. Cedrick Berger 3. Delay of [...] % (Auto) 65.7, Lymph % (Auto) 21.6, [place] % (Auto) 9.7, Eos % (Auto) 2.0, Baso % (Auto) 1.0, Neut # (Auto) 4.5, Lymph # (Auto) 1.5, [place] # (Auto) 0.7, Eos# (Auto) 0.1, Baso [...] Plan - TNM Staging Staging: Stage: pIIIC ([id number]) Melanoma 5 year survival: 69% (1) Melanoma [...] without extracapsular extension. Dr. Cedrick Berger at [facility] surgical oncology group ordered metastatic staging with [...] for coordination of care (as documented) and wofx-am-pcui counseling of patient and/or family. Dictated By: Rose Ohara MD DD/ [id number] Signed By: <Electronically signed by MD Rose Ohara> 09/23/22 1021 [facility] Work Phone: [phone] Progress note Author Rose Ohara [facility] July 01, 2022 8:35pm Note Date/Time July 01, 2022 10 :39am [facility] [place] [address] Hem/Onc Follow Up Note - OP Signed Patient: Tosha Mcneal MR#: [id number] : 1950 Acct:[id number] Age/Sex: 71 / F Type: REG RCR [...] related toxicities. Now following with dermatology at [facility] with no recurrence on skin exam. Surveillance ultrasound right axilla without recurrence. She will have routing f/u with sc in [address] CAP and [...] proceeded with wide local excision 09/05/2020 at [facility]. Outside review at [facility] showed at least 2.1 cm Breslow depth melanoma with 2 cm negative margins. She was referred to Dr. Cedrick Berger at [facility]. Right axillary sentinel lymph node biopsy [...] liver lesion. Her case was presented at [facility] cutaneous tumor board on 12/15/2020rior to her metastatic staging. Discussion of referral to medical oncology fordiscussion of immunotherapy. The patient is now returning for medical oncology follow-up after review of all prior pathology and imaging. BRAF status is stillpending. She has healed well. She is a 10-year history of diabetes. She resides in [facility]. Today we reviewed immunotherapy counseling for [...] Therapies: 1. Initial wide local excision at [facility] 09/05/[address] Hernando Mccartney 2. Right sentinel lymph node biopsy 11/28/2020 at [facility] by Dr. Cedrick Berger 3. Delay of [...] % (Auto) 66.8, Lymph % (Auto) 18.8, [place] % (Auto) 9.5, Eos % (Auto) 3.7, Baso % (Auto) 1.2, Neut # (Auto) 5.6, Lymph # (Auto) 1.6, [place] # (Auto) 0.8, Eos #(Auto) 0.3, Baso [...] Plan - TNM Staging Staging: Stage: pIIIC ([id number]) Melanoma 5 year survival: 69% (1) Melanoma [...] without extracapsular extension. Dr. Cedrick Berger at [facility] surgical oncology group ordered metastatic staging with [...] for coordination of care (as documented) and zaco-[id number]-rlga counseling of patient and/or family. Dictated By: Rose Ohara MD DD/ [id number] Signed By: <Electronically signed by MD Rose Ohara> 07/01/226 [facility] Work Phone: 1(135) 720-627905-26-2022 Progress note Author Rose Ohara [facility] April 01, 2022 1:09pm Note Date/Time March 31, 2022 1:30p m [facility] at [address] [address] Hem/Onc Follow Up Note - OP Signed Patient: Tosha Mcneal MR#: [id number] : 1950 Acct:[id number] Age/Sex: 71 / F Type: REG RCR [...] related toxicities. Now following with dermatology at [facility] with no recurrence on skin exam. Surveillance ultrasound right axilla without recurrence. She will have routing f/u with sc in [address] CAP and [...] proceeded with wide local excision 09/05/2020 at [facility]. Outside review at [facility] showed at least 2.1 cm Breslow depth melanoma with 2 cm negative margins. She was referred to Dr. Cedrick Berger at [facility]. Right axillary sentinel lymph node biopsy [...] liver lesion. Her case was presented at [facility] cutaneous tumor board on 12/15/2020rior to her metastatic staging. Discussion of referral to medical oncology fordiscussion of immunotherapy. The patient is now returning for medical oncology follow-up after review of all prior pathology and imaging. BRAF status is stillpending. She has healed well. She is a 10-year history of diabetes. She resides in [facility]. Today we reviewed immunotherapy counseling for [...] Therapies: 1. Initial wide local excision at [facility] 09/05/[address] Hernando Mccartney 2. Right sentinel lymph node biopsy 11/28/2020 at [facility] by Dr. Cedrick Berger 3. Delay of [...] cit 4.5 mg-lutein 2.5 mg-zeaxan chew tablet ([place]) 1 tab PO DAILY 04/11/19 [History Confirmed [...] % (Auto) 64.5, Lymph % (Auto) 22.3, [place] % (Auto) 9.5, Eos % (Auto) 2.6, Baso % (Auto) 1.1, Neut # (Auto) 4.8, Lymph # (Auto) 1.7, [place] # (Auto) 0.7, Eos# (Auto) 0.2, Baso [...] Plan - TNM Staging Staging: Stage: pIIIC ([id number]) Melanoma 5 year survival: 69% (1) Melanoma [...] without extracapsular extension. Dr. Cedrick Berger at [facility] surgical oncology group ordered metastatic staging with [...] for coordination of care (as documented) and bycs-sd-arcz counseling of patient and/or family. Dictated By: Rose Ohara MD DD/ 1330 Signed By: <Electronically signed by MD Rose Ohara> 04/01/22 [address] [facility] Work Phone: [phone]) [phone] Progress note Author Rose Ohara [facility] December 30, 2021 3:45pm Note Date/Time December 30, 2021 10:04am [facility] at [address] [address] Hem/Onc Follow Up Note - OP Signed Patient: Tosha Mcneal MR#: [id number] : 1950 Acct:[id number] Age/Sex: 71 / F Type: REG RCR Copies to: Wild G DO Cedrick Centeno MD Richard M Wiecek, MD~ Subjective Date/Time [...] related toxicities. Now following with dermatology at [facility] with no recurrence on skin exam. Surveillance [...] proceeded with wide local excision 09/05/2020 at [facility]. Outside review at [facility] showed at least 2.1 cm Breslow depth melanoma with 2 cm negative margins. She was referred to Dr. Cedrick Berger at [facility]. Right axillary sentinel lymph node biopsy [...] liver lesion. Her case was presented at [facility] cutaneous tumor board on 1prior to her metastatic staging. Discussion of referral to medical oncology fordiscussion of immunotherapy. The patient is now returning for medical oncology follow-up after review of all prior pathology and imaging. BRAF status is stillpending. She has healed well. She is a 10-year history of diabetes. She resides in [facility]. Today we reviewed immunotherapy counseling for [...] Therapies: 1. Initial wide local excision at [facility] 09/05/[address] Hernando Mccartney 2. Right sentinel lymph node biopsy 11/28/2020 at [facility] by Dr. Cedrick Berger 3. Delay of [...] cit 4.5 mg-lutein 2.5 mg-zeaxan chew tablet ([facility]) 1 tab PO DAILY 04/11/19 [History Confirmed [...] Plan - TNM Staging Staging: Stage: pIIIC ([id number]) Melanoma 5 year survival: 69% (1) Melanoma [...] without extracapsular extension. Dr. Cedrick Berger at [facility] surgical oncology group ordered metastatic staging with [...] for coordination of care (as documented) and mcuo-lp-nxks counseling of patient and/or family. Dictated By: Rose Ohara MD DD/ 1004 Signed By: <Electronically signed by MD Rose Ohara> 12/30/21 1545 [facility] Work Phone: 1([phone]) 707-323111-25-2021 Progress note Author Rose Ohara [facility] October 01, 2021 12:50pm Note Date/Time September 30, 2021 10:46am [facility] [place] [address] Hem/Onc Follow Up Note - OP Signed with Addenda Patient: Tosha Mcneal MR#: [id number] : 1950 Acct:[id number] Age/Sex: 70 / F Type: REG RCR Copies to: DO Bj Haddad MD Richard M Wiecek, MD~ ADDENDUM1 Correction 09/30/2021: Second line should note Social Welfare Research Worker is Dr. Bj Robison in [place]--last skin exam 09/29/2021. Addendum Dictated By: MD [...] related toxicities. Now following with dermatology at [facility] with no recurrence on skin exam. Surveillance [...] Hernando Mccartney. She follows with Dr. Wild Furlong. 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 There was ulceration with tumor infiltrating lymphocytes but no lymphovascular invasion. There was positive margins involved. She was referred to general surgery with Dr. Hernando Mccartney who proceeded with wide local excision 09/05/2020 at [facility]. Outside review at [facility] showed at least 2.1 cm Breslow depth melanoma with 2 cm negative margins. She was referred to Dr. Cedrick Berger at [facility]. Right axillary sentinel lymph node biopsy [...] liver lesion. Her case was presented at [facility] cutaneous tumor board on 1prior to her metastatic staging. Discussion of referral to medical oncology fordiscussion of immunotherapy. The patient is now returning for medical oncology follow-up after review of all prior pathology and imaging. BRAF status is stillpending. She has healed well. She is a 10-year history of diabetes. She resides in [facility]. Today we reviewed immunotherapy counseling for [...] Therapies: 1. Initial wide local excision at [facility] 09/05/[address] Hernando Mccartney 2. Right sentinel lymph node biopsy 11/28/2020 at [facility] by Dr. Cedrick Berger 3. Delay of [...] cit 4.5 mg-lutein 2.5 mg-zeaxan chew tablet ([employer]) 1 tab PO DAILY 04/11/19 [History Confirmed [...] Plan - TNM Staging Staging: Stage: pIIIC ([id number]) Melanoma 5 year survival: 69% (1) Melanoma [...] without extracapsular extension. Dr. Cedrick Berger at [facility] surgical oncology group ordered metastatic staging with [...] for coordination of care (as documented) and dirg-cm-nfnw counseling of patient and/or family. Dictated By: Rose Ohara MD DD/ 1046 Signed By: <Electronically signed by MD Rose Ohara> 09/30/212140 [facility] Work Phone: 1(238) 925-919408-23-2021 Progress note Author Rose Ohara [facility] June 29, 2021 6:03pm Note Date/Time June 29, 2021 10 :48am [facility] at [place] [id number] Hem/Onc Follow Up Note - OP Signed Patient: Tosha Mcneal MR#: [id number] : 1950 Acct:[id number] Age/Sex: 70 / F Type: REG RCR [...] proceeded with wide local excision 09/05/2020 at [facility]. Outside review at [facility] showed at least 2.1 cm Breslow depth melanoma with 2 cm negative margins. She was referred to Dr. Cedrick Berger at [facility]. Right axillary sentinel lymph node biopsy [...] liver lesion. Her case was presented at [facility] cutaneous tumor board on 1prior to her metastatic staging. Discussion of referral to medical oncology fordiscussion of immunotherapy. The patient is now returning for medical oncology follow-up after review of all prior pathology and imaging. BRAF status is stillpending. She has healed well. She is a 10-year history of diabetes. She resides in [facility]. Today we reviewed immunotherapy counseling for [...] Therapies: 1. Initial wide local excision at [facility] 09/05/[address] Hernando Mccartney 2. Right sentinel lymph node biopsy 11/28/2020 at [facility] by Dr. Cedrick Berger 3. Delay of [...] cit 4.5 mg-lutein 2.5 mg-zeaxan chew tablet ([employer]) 1 tab PO DAILY 04/11/19 [History Confirmed [...] Plan - TNM Staging Staging: Stage: pIIIC ([id number]) Melanoma 5 year survival: 69% (1) Melanoma [...] without extracapsular extension. Dr. Cedrick Berger at [facility] surgical oncology group ordered metastatic staging with [...] for coordination of care (as documented) and jurp-am-qhpl counseling of patient and/or family. Dictated By: Rose Ohara MD DD/ 1049 Signed By: <Electronically signed by MD Rose Ohara> 06/29/21 0520 [facility] Work Phone: 1([phone]) 369-846905-17-2021 Progress note Author Rose Ohara [facility] March 23, 2021 9:29am Note Date/Time March 23, 2021 9:09a m [facility] at [address] [address] Hem/Onc Follow Up Note - OP Signed Patient: Tosha Mcneal MR#: [id number] : 1950 Acct:[id number] Age/Sex: 70 / F Type: REG RCR [...] proceeded with wide local excision 09/05/2020 at [facility]. Outside review at [facility] showed at least 2.1 cm Breslow depth melanoma with 2 cm negative margins. She was referred to Dr. Cedrick Berger at [facility]. Right axillary sentinel lymph node biopsy [...] liver lesion. Her case was presented at [facility] cutaneous tumor board on 12/15/2020rior to her metastatic staging. Discussion of referral to medical oncology fordiscussion of immunotherapy. The patient is now returning for medical oncology follow-up after review of all prior pathology and imaging. BRAF status is stillpending. She has healed well. She is a 10-year history of diabetes. She resides in [facility]. Today we reviewed immunotherapy counseling for [...] Therapies: 1. Initial wide local excision at [facility] 09/05/[address] Hernando Mccartney 2. Right sentinel lymph node biopsy 11/28/2020 at [facility] by Dr. Cedrick Berger 3. Delay of [...] % (Auto) 69.8, Lymph % (Auto) 16.9, [place] % (Auto) 9.7, Eos % (Auto) 2.4, Baso % (Auto) 1.2, Neut # (Auto) 5.1, Lymph # (Auto) 1.2, [place] # (Auto) 0.7, Eos # (Auto) 0.2, [...] Plan - TNM Staging Staging: Stage: pIIIC ([id number]) Melanoma 5 year survival: 69% (1) Melanoma [...] without extracapsular extension. Dr. Cedrick Berger at [facility] surgical oncology group ordered metastatic staging with [...] for coordination of care (as documented) and xasq-uh-hisj counseling of patient and/or family. Dictated By: Rose Ohara MD DD/ Signed By: <Electronically signed by MD Rose Ohara> 03/23/21 0929 [facility] Work Phone: 1(279) 330-725104-05-2021 Progress note Author Rose Ohara [facility] February 09, 2021 1:28pm Note Date/Time February 09, 2021 8:07 am [facility] [place] [address] Hem/Onc Follow Up Note - OP Signed Patient: Tosha Mcneal MR#: [id number] : 1950 Acct:[id number] Age/Sex: 70 / F Type: REG RCR [...] proceeded with wide local excision 09/05/2020 at [facility]. Outside review at [facility] showed at least 2.1 cm Breslow depth melanoma with 2 cm negative margins. She was referred to Dr. Cedrick Berger at [facility]. Right axillary sentinel lymph node biopsy [...] liver lesion. Her case was presented at [facility] cutaneous tumor board on 12/15/2020rior to her metastatic staging. Discussion of referral to medical oncology fordiscussion of immunotherapy. The patient is now returning for medical oncology follow-up after review of all prior pathology and imaging. BRAF status is stillpending. She has healed well. She is a 10-year history of diabetes. She resides in [facility]. Today we reviewed immunotherapy counseling for [...] Therapies: 1. Initial wide local excision at [facility] 09/05/[address] Hernando Mccartney 2. Right sentinel lymph node biopsy 11/28/2020 at [facility] by Dr. Cedrick Berger 3. Delay of [...] Plan - TNM Staging Staging: Stage: pIIIC ([id number]) Melanoma 5 year survival: 69% (1) Melanoma [...] without extracapsular extension. Dr. Cedrick Berger at [facility] surgical oncology group ordered metastatic staging with [...] for coordination of care (as documented) and fugj-mw-dulz counseling of patient and/or family. Dictated By: Rose Ohara MD DD/ 6 Signed By: <Electronically signed by MD Rose Ohara> 02/09/21 1327 [facility] Work Phone: 1(190) 556-302511-25-2020 Consult note Author Bang Nunez [facility] October 01, 2020 11:21am Note Date/Time October 01, 2020 11:10am [facility] [place] [address] Hem/Onc Consult Note - OP Signed Patient: Tosha Mcneal MR#: [id number] : 1950 Acct:[id number] Age/Sex: 69 / F Type: REG RCR [...] 10-year history of diabetes. She resides in [facility]. [facility] - Medical History Medical History: Medical History [...] refer her to Dr. Cedrick Berger at [facility] surgical oncology group for his opinion. I will see her back at a later date. - Time with Patient Coordination of Care & Counseling Time: Greater than 50% of time spent with patient was for coordination of care (as documented) and dvsn-mp-pzfb counseling of patient and/or family. Dictated By: Bang Nunez MD DD/ 1108 Signed By: <Electronically signed by MD Bang Nunez> 10/01/20 1121 [facility] Work Phone: Evaluation note* Diagnosis Onset Date Resolution Status Diabetes mellitus chronic Encounter for antineoplastic immunotherapy chronic Enlarged pituitary gland chr onic Melanoma chronic [facility] Work Phone: Evaluation note* Diagnosis Onset Date Resolution Status Enlarged pituitary gland acu te Diabetes mellitus chronic Encounter for antineoplastic immunotherapy chronic Melanoma chronic [facility] Work Phone: Evaluation note* Diagnosis Onset Date Resolution Status Enlarged pituitary gland acu te Diabetes mellitus chronic Encounter for antineoplastic immunotherapy chronic Melanoma chronic Enlarged pituitary gland acu te Malignant melanoma of right upper limb, including shoulder acute Diabetes mellitus chronic [facility] Work Phone: Evaluation note* Diagnosis Aftercare following left knee joint replacement surgery- Primary Acute pain of left knee Stiffness of left knee Primary osteoarthritis of left knee documented in this encounter [facility]* Diagnosis Aftercare following left knee joint replacement surgery- Primary Acute pain of left knee Stiffness of left knee Primary osteoarthritis of left knee documented in this encounter [facility] note* Diagnosis Aftercare following left knee joint replacement surgery- Primary Acute pain of left knee Stiffness of left knee Primary osteoarthritis of left knee documented in this encounter [facility] note* Diagnosis Onset Date Resolution Status Admit Date Enlarged pituitary gland acute December 26, 2024 12:47pm Malignant melanoma of right upper limb, including shoulder acute F ebruary 2024 12:47pm Diabetes mellitus chronic Februar y 2024 12:47pm Enlarged pituitary gland acute December 26, 2024 12:59pm Diabetes mellitus chronic Februar y 2024 12:59pm Encounter for antineoplastic immunotherapy chronic December 26, 2 025 12:59pm Melanoma chronic December 26, 2024 12:59pm [facility] Work Phone: Progress note Author Rose Ohara [facility] July 01, 2022 8:35pm Note Date/Time July 01, 2022 10 :39am [facility] [place] [address] Hem/Onc Follow Up Note - OP Signed Patient: Tosha Mcneal MR#: [id number] : 1950 Acct:[id number] Age/Sex: 71 / F Type: REG RCR [...] related toxicities. Now following with dermatology at [facility] with no recurrence on skin exam. Surveillance ultrasound right axilla without recurrence. She will have routing f/u with sc in [address] CAP and [...] proceeded with wide local excision 09/05/2020 at [facility]. Outside review at [facility] showed at least 2.1 cm Breslow depth melanoma with 2 cm negative margins. She was referred to Dr. Cedrick Berger at [facility]. Right axillary sentinel lymph node biopsy [...] liver lesion. Her case was presented at [facility] cutaneous tumor board on 2/8/2021prior to her metastatic staging. Discussion of referral to medical oncology fordiscussion of immunotherapy. The patient is now returning for medical oncology follow-up after review of all prior pathology and imaging. BRAF status is stillpending. She has healed well. She is a 10-year history of diabetes. She resides in [facility]. Today we reviewed immunotherapy counseling for [...] Therapies: 1. Initial wide local excision at [facility] 09/05/[address] Hernando Mccartney 2. Right sentinel lymph node biopsy 11/28/2020 at [facility] by Dr. Cedrick Berger 3. Delay of [...] % (Auto) 66.8, Lymph % (Auto) 18.8, [place] % (Auto) 9.5, Eos % (Auto) 3.7, Baso % (Auto) 1.2, Neut # (Auto) 5.6, Lymph # (Auto) 1.6, [place] # (Auto) 0.8, Eos #(Auto) 0.3, Baso [...] Plan - TNM Staging Staging: Stage: pIIIC ([id number]) Melanoma 5 year survival: 69% (1) Melanoma [...] without extracapsular extension. Dr. Cedrick Berger at [facility] surgical oncology group ordered metastatic staging with [...] for coordination of care (as documented) and qsns-ut-vfrv counseling of patient and/or family. Dictated By: Rose Ohara MD DD/ 1038 Signed By: <Electronically signed by MD Rose Ohara> 07/01/22 [facility] Work Phone: Progress note Author Rose Ohara [facility] September 23, 2022 10:21am Note Date/Time September 23, 2022 8:36am [facility] [place] [id number] Hem/Onc Follow Up Note - OP Signed Patient: Tosha Mcneal MR#: [id number] : 1950 Acct:[id number] Age/Sex: 71 / F Type: REG RCR [...] related toxicities. Now following with dermatology at [facility] with no recurrence on skin exam. Surveillance ultrasound right axilla without recurrence. She will have routing f/u with sc in [address] CAP and [...] proceeded with wide local excision 09/05/2020 at [facility]. Outside review at [facility] showed at least 2.1 cm Breslow depth melanoma with 2 cm negative margins. She was referred to Dr. Cedrick Berger at [facility]. Right axillary sentinel lymph node biopsy [...] liver lesion. Her case was presented at [facility] cutaneous tumor board on 1prior to her metastatic staging. Discussion of referral to medical oncology fordiscussion of immunotherapy. The patient is now returning for medical oncology follow-up after review of all prior pathology and imaging. BRAF status is stillpending. She has healed well. She is a 10-year history of diabetes. She resides in [facility]. Today we reviewed immunotherapy counseling for [...] Therapies: 1. Initial wide local excision at [facility] 09/05/[address] Hernando Mccartney 2. Right sentinel lymph node biopsy 11/28/2020 at [facility] by Dr. Cedrick Berger 3. Delay of [...] for environmental allergies and food allergies. [facility] - History Attestation statement: The following information [...] % (Auto) 65.7, Lymph % (Auto) 21.6, [place] % (Auto) 9.7, Eos % (Auto) 2.0, Baso % (Auto) 1.0, Neut # (Auto) 4.5, Lymph # (Auto) 1.5, [place] # (Auto) 0.7, Eos# (Auto) 0.1, Baso [...] Plan - TNM Staging Staging: Stage: pIIIC ([id number]) Melanoma 5 year survival: 69% (1) Melanoma [...] without extracapsular extension. Dr. Cedrick Berger at [facility] surgical oncology group ordered metastatic staging with [...] for coordination of care (as documented) and vvlh-hx-zuer counseling of patient and/or family. Dictated By: Rose Ohara MD DD/ 0835 Signed By: <Electronically signed by MD Rose Ohara> 09/23/22 1021 [facility] Work Phone: Progress note Author Rose Ohara [facility] April 13, 2023 5:59pm Note Date/Time April 13, 2023 9:30a m [facility] [place] [address] Hem/Onc Follow Up Note - OP Signed Patient: Tosha Mcneal MR#: [id number] : 1950 Acct:[id number] Age/Sex: 72 / F Type: REG RCR [...] She is leaving for a cruise to [place] this month. Continue 4 month followup with [...] related toxicities. Now following with dermatology at [facility] with no recurrence on skin exam. Surveillance [...] proceeded with wide local excision 09/05/2020 at [facility]. Outside review at [facility] showed at least 2.1 cm Breslow depth melanoma with 2 cm negative margins. She was referred to Dr. Cedrick Berger at [facility]. Right axillary sentinel lymph node biopsy [...] liver lesion. Her case was presented at [facility] cutaneous tumor board on 1prior to her metastatic staging. Discussion of referral to medical oncology fordiscussion of immunotherapy. The patient is now returning for medical oncology follow-up after review of all prior pathology and imaging. BRAF status is stillpending. She has healed well. She is a 10-year history of diabetes. She resides in [facility]. Today we reviewed immunotherapy counseling for [...] Therapies: 1. Initial wide local excision at [facility] 09/05/[address] Hernando Mccartney 2. Right sentinel lymph node biopsy 11/28/2020 at [facility] by Dr. Cedrick Berger 3. Delay of [...] for environmental allergies and food allergies. [facility] - History Attestation statement: The following information [...] % (Auto) 62.3, Lymph % (Auto) 26.0, [place] % (Auto) 8.6, Eos % (Auto) 2.2, Baso % (Auto) 0.9, Nucleat RBC Rel Count 0.1, Neut # (Auto) 4.3, Lymph # (Auto) 1.8, [place] # (Auto) 0.6, Eos # (Auto) 0.2, [...] Plan - TNM Staging Staging: Stage: pIIIC ([id number]) Melanoma 5 year survival: 69% (1) Melanoma [...] without extracapsular extension. Dr. Cedrick Berger at [facility] surgical oncology group ordered metastatic staging with [...] for coordination of care (as documented) and yqgt-nu-hwar counseling of patient and/or family. Dictated By: Roes Ohara MD DD/ 0929 Signed By: <Electronically signed by MD Rose Ohara> 04/13/23 1618 [facility] Work Phone: Summary Purpose Family History No Family History Records Found Relationship Condition Age at Onset Recorded Date/T gianfranco Not Specified Cerebrovascular accident (CVA) Unknown father Leukemia Unknown Relationship Condition Age at Onset Recorded Date/T gianfranco mother Cerebrovascular accident (CVA) Unknown father Leukemia Unknown Advance Directives No Advanced Directives Records Found Advance Directive Response Recorded Date/ Time Advance Directives No April 11 7:55am Advance Directive Response Recorded Date/ Time Advance Directives No April 11 6:55am Procedure Findings Note PROCEDURE DETAILS Postoperat nitesh Diagnosis: right arm melanoma Surgeon: Cedrick Berger Resident/Fellow/Other It Applications Manager: Ramiro Bhat Procedure: 1. RIGHT AXILLARY SENTINEL [...] right upper limb, including shoulder Diabetes mellitus Chief Complaint Admit Date f/u CT, labs r/s from 12/13December 26, 2024 12:47pm Melanoma rt upper arm. December 26 12:59pm Reason for Visit Admit Date Enlarged pituitary gland December 26, 2024 12:47pm Malignant melanoma of right upper limb, including shoulder December 26, 2024 12:47pm Diabetes mellitus December 26, 2024 12:47pm Enlarged pituitary gland December 26, 2024 12:59pm Diabetes mellitus December 26, 2024 12:59pm Encounter for antineoplastic immunothera py December 26, 2024 12:59pm Melanoma December 26, 2024 12:59pm Additional Source Comments INFORMATION SOURCE (unrecogn ized section and content) DATE CREATED AUTHOR 10/24/2020 [employer] DATE CREATED AUTHOR AUTHOR'S ORGANIZ ATION 12/14/2020 [facility] DATE CREATED AUTHOR AUTHOR'S ORGANIZ ATION 10/07/2021 [facility] DATE CREATED AUTHOR AUTHOR'S ORGANIZ ATION 04/09/2022 [facility] DATE CREATED AUTHOR AUTHOR'S ORGANIZ ATION 03/07/2023 [facility] DATE CREATED AUTHOR AUTHOR'S ORGANIZ ATION 10/12/2023 [facility] DATE CREATED AUTHOR AUTHOR'S ORGANIZ ATION 11/10/2023 [facility] DATE CREATED AUTHOR AUTHOR'S ORGANIZ ATION 01/05/2024 [facility] DATE CREATED AUTHOR AUTHOR'S ORGANIZ ATION 06/09/2024 [facility] DATE CREATED AUTHOR AUTHOR'S ORGANIZ ATION 07/18/2024 [facility] DATE CREATED AUTHOR AUTHOR'S ORGANIZ ATION 08/19/2024 [facility] DATE CREATED AUTHOR AUTHOR'S ORGANIZ ATION 12/28/2024 [facility] DATE CREATED AUTHOR AUTHOR'S ORGANIZ ATION 01/18/2025 [facility] DATE CREATED AUTHOR AUTHOR'S ORGANIZ ATION 01/24/2025 [facility] Care Teams (unrecognized sec tion and content) [...] December 15, 2023 End: December 15, 2023 Valet Manager Relationship Specialty Start Date End Date Unallocated, [facility] [address] [place] [address] PCP - General Family Medicine 12/06/23 Valet Manager Relationship Specialty Start Date End Date Unallocated, [facility] [address] [place] [address] PCP - General Family Medicine 12/06/23 Valet Manager Relationship Specialty Start Date End Date Unallocated, [facility] [address] [place] [address] PCP - General Family Medicine 12/06/23 Valet Manager Relationship Specialty Start Date End Date Unallocated, [facility] [address] [place] [address] PCP - General Family Medicine 12/06/23 Valet Manager Relationship Specialty Start Date End Date Unallocated, [facility] [address] [place] [address] PCP - General Family Medicine 12/06/23 Valet Manager Relationship Specialty Start Date End Date Unallocated, [facility] [address] [place] [address] PCP - General Family Medicine 12/06/23 Valet Manager Relationship Specialty Start Date End Date Unallocated, Sincere Montiel MD [address] [place] [address] PCP - General Family Medicine 12/06/23 Valet Manager Relationship Specialty Start Date End Date Unallocated, Sincere Montiel MD [address] [place] [address] PCP - General Family Medicine 12/06/23 Team Status: Inactive Member Role Status Dates Wild Centeno DO Primary Care Provider Active Start: December 26, 2024 End: December 26, 2024 Rose Ohara MD Attending Provider Active Start: December 26, 2024 End: December 26, 2024 Team Status: Active Member Role Status Dates Wild Centeno DO Primary Care Provider Active Start: December 26, 2024 Mohan Mccartney MD Referring Provider Active Start: December 26, 2024 Rose Ohara MD Attending Provider Active Start: December 26, 2024 Goals (unrecognized section and content) Goals may be documented in a n alternate sectionGoals may be documented in an alternate sectionGoals may be documented in an alternate sectionGoals may be documented in an alternate sectionGoals may be documented in an alternate sectionGoals may be documented in an alternate sectionGoals may be documented in an alternate sectionGoals may be documented in an alternate section Reason for Visit (unrecogniz ed section and content) Specialty Diagnoses / Procedures Referred By Pete jordan Referred To Contact Physical Therapy Diagnoses S/P total knee replacement using cement, left Procedures MA MANUAL THERAPY TQS 1/> REGIONS EACH 15 MINUTES PHYS/OCC THERAPY SS MA THERAPEUTIC PX 1/> AREAS EACH 15 MIN EXERCISES MA THER PX 1/> AREAS EACH 15 MIN NEUROMUSC REEDUCA Aly Higgins MD [address] [place] [address] Aman Yu, PT [address] [address] Referral ID Status Reason Start Date Expiration Date Visits Re quested Visits Authorized [id number] Closed 11/07/2023 10/19/2024 1 10 Referral ID Status Reason Start Date Expiration Date V isits Requested Visits Authorized [id number] Authorized 12/19/2023 10/02/2025 28 28 FOR RECORDS PERTAINING TO PATIENTS WHO ARE [...] BE BASED ON THE PRIMARY CLINICAL RECORDS. [facility]. provides no warranty or guarantee of the accuracy or completeness of information in this document.
[2025-01-29 11:37] LABS: Anion Gap 14.3; BUN Creatinine Ratio 18.4; Calcium 9.2 mg/dL (8.5-10.1); Carbon Dioxide 30.1 mmol/L (21.0-32.0); Chloride 104 mmol/L (98-107); Estimated GFR (African America 56 (>=60 mL/min/1.73m^2); Estimated GFR (Non-African Ame 46 (>=60 mL/min/1.73m^2); Glucose 224 mg/dL (74-106); Potassium 4.4 mmol/L (3.5-5.1); Sodium 144 mmol/L (136-145)
== END 2025-01-29 10:24 | disposition home or self-care (01) ==
LOC: LAB 10:27
PROVIDERS: PCP Family Medicine; Visit Provider Nurse Practitioner Family
DX: I50.32 Chronic diastolic (congestive) heart failure (principal)
CPT/HCPCS: 36415; 80048

== ENCOUNTER 2025-02-19 14:46 | Outpatient (OUT) | payer MEDICARE, OTHER, SELFPAY ==
--- NOTE | 2025-02-19 15:02 | XR_ITS ---
[facility] [place] [id number] Patient Name: TANIYA MCNEAL MRN: [id number] date: 1950 Sex: F Assigned Patient Location: [facility] Current Patient Location: [facility] Accession/Order Number: [id number] Exam Date: 02/19/2025 15:17 Report Date: 02/19/2025 15:19 At the request of: ALFRED ALEXANDER APRN Procedure: XR chest 2V Chest 2 views CLINICAL HISTORY: Dyspnea On Exertion COMPARISON: Chest 11/25/2021 FINDINGS: Cardiomegaly vascular congestion is unchanged. No consolidation pneumothorax pleural effusion or free air. XR/XR chest 2V IMPRESSION: CHF FINDINGS SIMILAR TO THE PRIOR STUDY. Impression dictated by: Miki Kruse Jr., D.O.02/19/2025 3:19 PM Dictation Location: [place] [address] Electronically authenticated by: [id number] Y Date: 02/19/2025 15:19
== END 2025-02-19 14:47 | disposition home or self-care (01) ==
LOC: RAD 14:48
PROVIDERS: PCP Family Medicine; Visit Provider Nurse Practitioner Family
DX: R06.09 Other forms of dyspnea (principal); I50.33 Acute on chronic diastolic (congestive) heart failure
CPT/HCPCS: 71046

== ENCOUNTER 2025-02-27 12:28 | Outpatient (OUT) | payer MEDICARE, OTHER, SELFPAY ==
[2025-02-27 13:12] LABS: Anion Gap 10.3; Calcium 8.9 mg/dL (8.5-10.1); Carbon Dioxide 34.7 mmol/L (21.0-32.0); Chloride 103 mmol/L (98-107); Estimated GFR (African America >60 (>=60 mL/min/1.73m^2); Estimated GFR (Non-African Ame 50 (>=60 mL/min/1.73m^2); Glucose 111 mg/dL (74-106); Sodium 145 mmol/L (136-145)
== END 2025-02-27 12:29 | disposition home or self-care (01) ==
LOC: LAB 12:29
PROVIDERS: PCP Family Medicine; Visit Provider Nurse Practitioner Family
DX: R06.09 Other forms of dyspnea (principal); I50.33 Acute on chronic diastolic (congestive) heart failure
CPT/HCPCS: 36415; 80048; 83880

== ENCOUNTER 2025-02-27 19:09 | Emergency (ER) | payer MEDICARE, OTHER, SELFPAY ==
[2025-02-27 19:14] VITALS: BP 149/60; PULSE 54; TEMP 36.8; O2SAT 91; BMI 42.8
--- NOTE | 2025-02-27 19:30 | ECG_ITS ---
[facility] Test Date: 2025-02-27 Pat Name: TANIYA MCNEAL Department: Room: - Gender: Female Assistant Counsel: : 1950 Requested By: [id number] Order Number: [id number] Reading MD: NAZIA LIU M.D. Measurements Intervals [place] Rate: 48 P: 63 [place]: 260 QRS: -60 QRSD: 92 T: 210 QT: 462 QTc: 429 Interpretive Statements 1130 Sinus bradycardia 2231 First degree AV block 3113 Cannot rule out anterior myocardial infarction, probably old [address] depression 7200 Abnormal left axis deviation 8102 Low QRS voltage in chest leads 9150 abnormal ECG Compared to ECG 09/02/2020 08:31:04 Low QRS voltage now present Rhythm is the same Electronically Signed On 02-28-2025 20:40:23 EDT by NAZIA LIU M.D.
--- NOTE | 2025-02-27 19:54 | ED.GENADUL1 ---
HPI HPI - General Adult General Chief complaint: Nausea/Vomiting/Diarrhea Stated complaint: FLU LIKE SYMPTOMS, CP, ABDOMINAL PAIN Time Seen by Provider: 02/27/25 19:40 Source: patient Mode of arrival: Wheelchair History of Present Illness HPI narrative: 74 year old female presents to the ED for N/V/D. Onset was 02/24/25. Today she developed discomfort to her chest and upper abdomen. Denies fever, chills, urinary sx, cough, congestion, SOB. The pain is worse with movement and inspiration. Related Data Previous Rx's ?Medication ?Instructions ?Recorded etodolac 300 mg capsule 300 mg PO Q8H PRN pain #20 caps 08/21/24 methocarbamol 500 mg tablet 500 mg PO Q8H PRN pain #20 tabs 08/21/24 dicyclomine 10 mg capsule 10 mg PO TID PRN abdominal pain 02/27/25 #12 caps hydrocodone 5 mg-acetaminophen 325 1 tab PO Q8H PRN pain 4 days #12 02/27/25 mg tablet tabs ondansetron 4 mg disintegrating 4 mg PO Q8H PRN nausea and 02/27/25 tablet vomiting 4 days #12 tabs Allergies Allergy/AdvReac Type Severity Reaction Status Date / Time No Known Drug Allergies Allergy Verified 08/21/24 12:18 Opioid HPI Opioid Management Most Recent Opioid Data: Last Pain Scale 8 02/27/25 22:46 02/27/25 Review of Systems ROS Constitutional Denies: fever or chills Ears, nose, mouth, and throat Denies: throat pain or neck pain Cardiovascular Reports: chest pain Respiratory Denies: shortness of breath or cough Gastrointestinal Reports: abdominal pain, nausea, vomiting and diarrhea Genitourinary Denies: painful urination, urinary frequency, urinary urgency or blood in urine Musculoskeletal Denies: back pain or neck pain Integumentary/Breast Denies: rash Neurological Denies: headache, weakness in extremities or dizziness Exam Constitutional Vital Signs, click to edit/add: Last Vital Signs Temp 98.2 F 02/27/25 19:14 Pulse 71 02/27/25 23:00 Resp 18 02/27/25 23:00 BP 108/46 L 02/27/25 23:00 Pulse Ox 91 L 02/27/25 19:14 O2 Del Method Room Air 02/27/25 19:14 Common normals: no apparent distress and oriented x3 General appearance: cooperative HENMT Common normals: moist oral mucous membranes Eye Common normals: conjunctivae normal and no scleral icterus Neck & C-Spine Common normals: supple and no meningeal signs Chest Chest: symmetrical chest wall rise and tenderness Respiratory Common normals: normal respiratory effort and clear to auscultation bilaterally Effort & inspection: able to speak in complete sentences and symmetric chest movement Cardio Common normals: regular rate and regular rhythm GI Common normals: Normal to inspection, nondistended, normoactive bowel sounds present and soft to palpation Palpation: tender (Generalized) Neuro Common normals: oriented x3 and moves all extremities Sensorium/orientation: awake and alert Speech: speech normal Course Vital Signs Vital signs: Vital Signs Temperature 98.2 F 02/27/25 19:14 Pulse Rate 54 L 02/27/25 19:14 Respiratory Rate 18 02/27/25 19:14 Blood Pressure 149/60 H 02/27/25 19:14 Pulse Oximetry 91 L 02/27/25 19:14 Oxygen Delivery Method Room Air 02/27/25 19:14 Temperature 98.2 F 02/27/25 19:14 Pulse Rate 71 02/27/25 23:00 Respiratory Rate 18 02/27/25 23:00 Blood Pressure 108/46 L 02/27/25 23:00 Pulse Oximetry 91 L 02/27/25 19:14 Oxygen Delivery Method Room Air 02/27/25 19:14 Medical Decision Making MDM Narrative Medical decision making narrative: WBC count was unremarkable. CMP, lipase, and troponin were also unremarkable. CT scan was negative for acute findings. Findings were discussed with the patient. She was given medication for discomfort here with improvement. OARRS was reviewed. Prescriptions were provided for Zofran, Bentyl, and [place]. Return precautions were discussed. Follow up with pcp for a recheck, further evaluation and treatment. Medical Records Medical records reviewed: Yes I reviewed the patient's medical records Lab Data Lab results reviewed: Yes I reviewed the patient's lab results Labs: Lab Results 02/27/25 Range/Units 20:15 WBC 7.5 (4.0-11.0) 10^3/uL RBC 4.92 (4.20-5.40) 10^6/uL Hgb 14.2 (12.0-16.0) g/dL Hct 45.8 (36.0-48.0) % MCV 93.1 (81.0-99.0) fL MCH 28.9 (26.7-34.0) pg MCHC 31.0 (29.9-35.2) g/dL RDW 15.2 H (11.0-15.0) % Plt Count 196 (150-450) 10^3/uL MPV 9.7 (9.5-13.5) fL Neut % (Auto) 69.4 (43.0-75.0) % Lymph % (Auto) 19.6 L (20.5-60.0) % [place] % (Auto) 9.8 (1.7-12.0) % Eos % (Auto) 0.7 L (0.9-7.0) % Baso % (Auto) 0.4 (0.2-2.0) % Neut # (Auto) 5.2 (1.4-6.5) 10^3/uL Lymph # (Auto) 1.5 (1.2-3.8) 10^3/uL [place] # (Auto) 0.7 (0.3-0.8) 10^3/uL Eos # (Auto) 0.1 (0.0-0.7) 10^3/uL Baso # (Auto) 0.0 (0.0-0.1) 10^3/uL Abs Immat Gran (auto) 0.01 (0.00-0.03) 10^3/uL Imm/Tot Granulo (auto) 0.1 (0.0-0.5) % Sodium 143 (136-145) mmol/L Potassium 3.1 L (3.5-5.1) mmol/L Chloride 102 (98-107) mmol/L Carbon Dioxide 32.4 H (21.0-32.0) mmol/L Anion Gap 11.7 BUN 16.0 (7.0-18.0) mg/dL Creatinine 1.08 H (0.55-1.02) mg/dL Est GFR ( Amer) 60 (>=60 mL/min/1.73m^2) Est GFR (Non-Af Amer) 49 L (>=60 mL/min/1.73m^2) BUN/Creatinine Ratio 14.8 Glucose 152 H (74-106) mg/dL Calcium 9.1 (8.5-10.1) mg/dL Total Bilirubin 1.2 H (0.2-1.0) mg/dL AST 29 (15-37) U/L ALT 23 (14-59) U/L Alkaline Phosphatase 60 (46-116) U/L Troponin I High Sens 15.6 (4.0-51.3) pg/mL Total Protein 6.7 (6.4-8.2) g/dL Albumin 3.3 L (3.4-5.0) g/dL Globulin 3.4 g/dL Albumin/Globulin Ratio 1.0 Lipase 29.0 (16.0-77.0) U/L Imaging Data Chest x-ray: Attestation: I have reviewed the pertinent imaging results. Radiologist's impression: Chest x-ray: 1. Comparison to 02/19/25 2. Stable appearance of the left lung base. 3. No other consolidation. 4. No pulmonary edema, pleural effusion, or pneumothorax. CT scan - abdomen: Attestation: I have reviewed the pertinent imaging results. Radiologist's impression: 1. Mild enteritis and mild mesenteric adenitis. 2. Normal appendix. 3. Mild lower left colon and sigmoid colon diverticulosis. 4. Small follicular cysts in the right and left ovary. 5. Mild enlarged heart size. 6. No conclusive features of cholecystitis or pancreatitis. 7. No features of colitis. ECG Data Attestation: ?I have reviewed the pertinent ECG results. (EKG was reviewed by the attending physician. It showed sinus bradycardia at a rate of 48, first degree AV block. No STEMI.) Interpretation: Measurements Intervals [place] Rate: 48 P: 63 [place]: 260 QRS: -60 QRSD: 92 T: 210 QT: 462 QTc: 429 Interpretive Statements 1130 Sinus bradycardia 2231 First degree AV block 3113 Cannot rule out anterior myocardial infarction, probably old [address] depression 7200 Abnormal left axis deviation 8102 Low QRS voltage in chest leads 9150 abnormal ECG No previous ECG available for comparison Discharge Plan Discharge Chief Complaint: Nausea/Vomiting/Diarrhea Clinical Impression: Abdominal pain, Nausea vomiting and diarrhea, Chest wall pain Patient Disposition: Home, Self-Care Time of Disposition Decision: 22:32 Condition: Good Mode of Transportation: Private Vehicle Prescriptions / Home Meds: New dicyclomine 10 mg capsule 10 mg PO TID PRN (Reason: abdominal pain) Qty: 12 0RF ondansetron 4 mg tablet,disintegrating 4 mg PO Q8H PRN (Reason: nausea and vomiting) 4 Days Qty: 12 0RF hydrocodone-acetaminophen 5-325 mg tablet 1 tab PO Q8H PRN (Reason: pain) 4 Days Qty: 12 0RF No Action methocarbamol 500 mg tablet 500 mg PO Q8H PRN (Reason: pain) Qty: 20 0RF etodolac 300 mg capsule 300 mg PO Q8H PRN (Reason: pain) Qty: 20 0RF Print Language: Turkmen Instructions: Acute Nausea and Vomiting (ED), Acute Diarrhea (ED), Acute Abdominal Pain (ED), Chest Wall Pain (ED) Additional Instructions: Return to the ER for worsening symptoms. Referrals: ОЛЕГ CENTENO [Primary Care Provider] - 1 week Discharge Date/Time: 02/27/25 23:05
[2025-02-27] MEDS: 0.9 % SODIUM CHLORIDE 1,000 ML 1000 ML IV (20:11)
[2025-02-27] MEDS: MORPHINE SULFATE 2 MG/ML SYRINGE IV (20:12)
[2025-02-27] MEDS: ONDANSETRON PF 4 MG/2 ML VIAL IV ×2 (20:12→22:46)
[2025-02-27 20:29] LABS: Basophils Percent Auto 0.4 % (0.2-2.0); Eosinophils Absolute Auto 0.1 10^3/uL (0.0-0.7); Eosinophils Percent Auto 0.7 % (0.9-7.0); Hematocrit 45.8 % (36.0-48.0); Hemoglobin 14.2 g/dL (12.0-16.0); Immature Granulocytes Abs Auto 0.01 10^3/uL (0.00-0.03); Immature Granulocytes Pct Auto 0.1 % (0.0-0.5); Lymphocytes Absolute Auto 1.5 10^3/uL (1.2-3.8); Lymphocytes Percent Auto 19.6 % (20.5-60.0); Mean Corpuscular Hemoglobin 28.9 pg (26.7-34.0); Mean Corpuscular Volume 93.1 fL (81.0-99.0); Mean Platelet Volume 9.7 fL (9.5-13.5); Monocytes Absolute Auto 0.7 10^3/uL (0.3-0.8); Monocytes Percent Auto 9.8 % (1.7-12.0); Neutrophils Absolute Auto 5.2 10^3/uL (1.4-6.5); Neutrophils Percent Auto 69.4 % (43.0-75.0); Platelet Count 196 10^3/uL (150-450); Red Blood Count 4.92 10^6/uL (4.20-5.40); Red Cell Distribution Width 15.2 % (11.0-15.0); White Blood Count 7.5 10^3/uL (4.0-11.0)
[2025-02-27 20:53] LABS: Alanine Aminotransferase 23 U/L (14-59); Albumin Level 3.3 g/dL (3.4-5.0); Alkaline Phosphatase 60 U/L (46-116); Anion Gap 11.7; Aspartate Amino Transferase 29 U/L (15-37); BUN Creatinine Ratio 14.8; Bilirubin Total 1.2 mg/dL (0.2-1.0); Calcium 9.1 mg/dL (8.5-10.1); Carbon Dioxide 32.4 mmol/L (21.0-32.0); Chloride 102 mmol/L (98-107); Estimated GFR (African America 60 (>=60 mL/min/1.73m^2); Estimated GFR (Non-African Ame 49 (>=60 mL/min/1.73m^2); Globulin 3.4 g/dL; Glucose 152 mg/dL (74-106); Potassium 3.1 mmol/L (3.5-5.1); Sodium 143 mmol/L (136-145); Total Protein 6.7 g/dL (6.4-8.2); Troponin I High Sensitivity 15.6 pg/mL (4.0-51.3)
[2025-02-27] MEDS: FENTANYL CITRATE/PF 100 MCG/2 ML VIAL 50 MCG IV ×2 (21:32→22:46)
[2025-02-27] MEDS: DICYCLOMINE HCL 20 MG/2 ML VIAL IM (22:46)
[2025-02-27 23:00] VITALS: BP 108/46; PULSE 71
== END 2025-02-27 23:05 | disposition home or self-care (01) ==
PROVIDERS: Nurse Practitioner Family; Emergency Provider Internal Medicine; PCP Family Medicine
DX: R10.9 Unspecified abdominal pain (principal); R11.2 Nausea with vomiting, unspecified; R07.89 Other chest pain; R19.7 Diarrhea, unspecified; R06.09 Other forms of dyspnea; I50.33 Acute on chronic diastolic (congestive) heart failure
CPT/HCPCS: 36415; 71045; 74177; 80048; 80053; 83690; 83880; 84484; 85025; 93005; 96372; 96374; 96375; 96376; 99285; J0500; J2270; J2405; J3010; Q9967

== ENCOUNTER 2025-03-02 21:54 | Emergency (ER) | payer MEDICARE, OTHER, SELFPAY ==
[2025-03-02] VITALS (17 sets, daily range): BP systolic 95–128; BP diastolic 38–93; PULSE 72–82; TEMP 37.7; O2SAT 77–96; BMI 42.8
--- NOTE | 2025-03-02 22:21 | ECG_ITS ---
[facility] Test Date: 2025-03-02 Pat Name: TANIYA MCNEAL Department: Room: - Gender: Female Cut To Length Operator: : 1950 Requested By: Dipesh Rogers Order Number: [id number] Shan MD: NAZIA LIU M.D. Measurements Intervals [place] Rate: 77 P: 70 [place]: 210 QRS: -84 QRSD: 94 T: 190 QT: 402 QTc: 434 Interpretive Statements 1100 Sinus rhythm 2231 First degree AV block Cannot rule out anterior myocardial infarction, probably old 7200 Abnormal left axis deviation 8102 Low QRS voltage in chest leads 9150 abnormal ECG Compared to ECG 02/27/2025 19:21:51 ST (T wave) deviation no longer present Electronically Signed On 03-03-2025 7:20:20 EDT by NAZIA LIU M.D.
[2025-03-02 22:32] LABS: Hematocrit 43.5 % (36.0-48.0); Hemoglobin 13.9 g/dL (12.0-16.0); Mean Corpuscular Hemoglobin 28.5 pg (26.7-34.0); Mean Corpuscular Volume 89.1 fL (81.0-99.0); Platelet Count 190 10^3/uL (150-450); Red Blood Count 4.88 10^6/uL (4.20-5.40); Red Cell Distribution Width 15.5 % (11.0-15.0)
[2025-03-02] MEDS: HYOSCYAMINE SULFATE 0.125 MG TAB.SUBL SL (22:37)
[2025-03-02] MEDS: ONDANSETRON PF 4 MG/2 ML VIAL IV (22:38)
[2025-03-02] MEDS: 0.9 % SODIUM CHLORIDE 1,000 ML 1000 ML IV (22:38)
--- NOTE | 2025-03-02 22:39 | ED.ABDPAIN1 ---
HPI - Abdominal Pain General Chief Complaint: Abdominal Pain Stated Complaint: PAIN LEFT SIDE Time Seen by Provider: 03/02/25 21:57 Source: patient Mode of arrival: Wheelchair Limitations: no limitations History of Present Illness HPI narrative: cc - abdominal pain Pt returns complaining that her right sided abd pain has not improved despite taking prescribed meds and has now moved to encompass the mid anterior abd as well as the right side, where t riginated. She was evaluated 02/27/25 in our ED and had a CT abd/pelvis showing adenitis and enteritis-type changes, remainder of workup was normal/unremarkable. She was prescribed narcotics for pain control. Her diet has been decreased but also poor - she ate chocolate cake today and had dessert rolls yesterday. No BM for 4 days - passing little to no gas since then. No prior abd surgeries. Related Data Home Medications ?Medication ?Instructions ?Recorded ?Confirmed allopurinol 100 mg tablet 100 mg PO QAM 03/02/25 03/02/25 amlodipine 5 mg tablet 5 mg PO QAM 03/02/25 03/02/25 carvedilol 25 mg tablet 25 mg PO BID 03/02/25 03/02/25 ergocalciferol (vitamin D2) 1,250 1,250 mcg PO QWEEK 03/02/25 03/02/25 mcg (50,000 unit) capsule furosemide 40 mg tablet 40 mg PO QAM 03/02/25 03/02/25 lisinopril 40 mg tablet 40 mg PO QAM 03/02/25 03/02/25 metformin 1,000 mg tablet 1,000 mg PO BID 03/02/25 03/02/25 rosuvastatin 10 mg tablet 10 mg PO QAM 03/02/25 03/02/25 Previous Rx's ?Medication ?Instructions ?Recorded dicyclomine 10 mg capsule 10 mg PO TID PRN abdominal pain 02/27/25 #12 caps hydrocodone 5 mg-acetaminophen 325 1 tab PO Q8H PRN pain 4 days #12 02/27/25 mg tablet tabs ondansetron 4 mg disintegrating 4 mg PO Q8H PRN nausea and 02/27/25 tablet vomiting 4 days #12 tabs Allergies Allergy/AdvReac Type Severity Reaction Status Date / Time No Known Drug Allergies Allergy Verified 08/21/24 12:18 PFSH PFSH Medical History (Updated 03/03/25 @ 04:08 by Dipesh Rogers) CHF (congestive heart failure) ?I50.9 - Heart failure, unspecified (ICD-10) Gout ?M10.9 - Gout, unspecified (ICD-10) Obesity ?E66.9 - Obesity, unspecified (ICD-10) Diabetes ?E11.9 - Type 2 diabetes mellitus without complications (ICD-10) HTN (hypertension) ?I10 - Essential (primary) hypertension (ICD-10) High cholesterol ?E78.00 - Pure hypercholesterolemia, unspecified (ICD-10) Social History Little interest or pleasure in doing things: not at all Feeling down, depressed, or hopeless: not at all Exam Narrative Exam Narrative: Nurses notes and vital signs reviewed and patient is not hypoxic. afebrile General: Well-appearing and in no apparent distress. Skin: Warm, dry, no pallor noted. No rash. Head: Normocephalic, atraumatic. Eye: Pupils are equal, round and EOMI. No scleral icterus. Ears, Nose, Mouth, and Throat: Oral mucosa is moist Cardiovascular: Regular Rate and Rhythm without murmur, gallop or rub. Respiratory: No accessory muscle use or respiratory distress but she takes frequent shallow breaths. Lungs are clear to auscultation, no wheezing, rales or rhonchi -but she is unable to take deep breaths Back: No midline thoracic or lumbar vertebral tenderness. No CVA tenderness Musculoskeletal: normal ROM, no calf or popliteal tenderness, no lower extremity edema/swelling GI: Abdomen is soft but markedly distended. Decreased bowel sounds. No solid or pulsatile masses appreciated but her protuberant abdomen and body habitus limits examination. Diffuse anterior and right sided abdominal tenderness to palpation. No rebound, guarding, or rigidity noted. Neurological: A&O x4. No cranial nerve dysfunction observed. No truncal ataxia. Moves all extremities. Sensation intact. Psychiatric: Cooperative and interactive. Normal mood and affect. Constitutional Vital Signs, click to edit/add: Last Vital Signs Temp 99.8 F 03/02/25 21:58 Pulse 80 03/03/25 06:10 Resp 28 H 03/03/25 06:10 BP 111/42 L 03/03/25 06:00 Pulse Ox 92 L 03/03/25 06:10 O2 Del Method Nasal Cannula 03/03/25 04:52 O2 Flow Rate 5 03/03/25 04:52 Course Vital Signs Vital signs: Vital Signs Temperature 99.8 F 03/02/25 21:58 Pulse Rate 82 03/02/25 21:58 Respiratory Rate 16 03/02/25 21:58 Blood Pressure 128/93 H 03/02/25 21:58 Oxygen Delivery Method Room Air 03/02/25 21:58 Temperature 99.8 F 03/02/25 21:58 Pulse Rate 80 03/03/25 06:10 Respiratory Rate 28 H 03/03/25 06:10 Blood Pressure 111/42 L 03/03/25 06:00 Pulse Oximetry 92 L 03/03/25 06:10 Oxygen Delivery Method Nasal Cannula 03/03/25 04:52 Oxygen Delivery Flow Rate 5 03/03/25 04:52 MDM - Abdominal Pain MDM Narrative Medical decision making narrative: Patient was placed on cardiac surgeon and EKG obtained. Blood drawn and sent for evaluation. She was ordered to receive a liter of normal saline IV fluid, IV Zofran and oral Levsin She was ordered to undergo CT scanning of the abdomen and pelvis with oral and IV contrast. White blood cell count elevated at 15,000, left shift noted. Potassium decreased at 3.1 although this appears to be at her baseline based on previous test results. BUN and creatinine are elevated at 59, 3.53, respectively which is quite a bit above her baseline. Troponin is high at 443.6 with BNP high at 15,752 -this may be secondary to the patient's acute renal failure -we will recheck these values after the patient has received hydration. Lactate was also elevated and will also be rechecked after hydration. LFTs normal and total bilirubin normal. Urinalysis reveals trace leukocyte Estrace, amount of bacteria and findings consistent with acute urinary tract infection. Patient was given IV Rocephin after blood cultures were obtained and sent, per sepsis protocol. A second liter of normal saline IV fluid was ordered to be started at 200 mL/h. Due to her acute kidney failure/renal injury, the CT could not be performed with IVC. She was taken to the CT suite and CT obtained @ 23:58. @ 0215 - After a long delay in multiple phone calls, we finally got the reading of the CT scan -acute cholecystitis. I spoke with the patient about her lack of surgical coverage here at the [facility]. It was agreed that the patient would go to one of the [facility]. Pt ordered to receive IV Zosyn 3.375mg. @ 0220 - Call was placed to [facility] to discuss transfer to their facility for admission, treatment of her acute cholecystitis, management of her acute kidney injury and her concurrent UTI. Repeat lactate 2.4. Repeat troponin at 3hrs = 443.6. No anticoagulation was started due to pt's need for surgery for her acute cholecystitis. @0350 - I spoke with Dr Garcia, supervisor ordnance truck installation hospitalist for intensive care units at [facility], and he accepted the patient to the MICU. They told me that the beds are limited and that they are discharge dependent - I requested ER to ER transfer and stressed my concern about this patient's critical acuity and concern for her remaining at [facility] - which has no ICU admitting capability, no intensivitst and no surgical coverage. Calls were also placed to [facility] in order to facilitate transfer for this patient but after 2 hours of waiting for the surgeon or the hospitalist to call back - and after [facility] accepted the patient pending bed assignment - and still not hearing from [facility] staff that attempt was aborted. Pt got a bed assignment but local EMS/ambulance service could not arrange transportation until 9am. Pt received next dose of zosyn - ordered at 7am. Awaiting transport as of shift change at 7am. I made Dr Cristobal aware fo this patient's case but do not anticipate that he will need to intervene. Medical Records Attestation: I reviewed the patient's medical records. Medical records narrative: I reviewed her recent chart and her lab and CT results Lab Data Attestation: I reviewed the patient's lab results. Labs: Lab Results 03/02/25 03/03/25 03/03/25 Range/Units 22:24 00:22 01:33 WBC 15.0 H (4.0-11.0) 10^3/uL RBC 4.88 (4.20-5.40) 10^6/uL Hgb 13.9 (12.0-16.0) g/dL Hct 43.5 (36.0-48.0) % MCV 89.1 (81.0-99.0) fL MCH 28.5 (26.7-34.0) pg MCHC 32.0 (29.9-35.2) g/dL RDW 15.5 H (11.0-15.0) % Plt Count 190 (150-450) 10^3/uL MPV 10.0 (9.5-13.5) fL Seg Neuts % (Manual) 82.0 H (43.0-75.0) Lymphocytes % (Manual) 6.0 L (20.5-60.0) % Atypical Lymphs % (Man) 3.0 % Monocytes % (Manual) 9.0 (1.7-12.0) % Eosinophils % (Manual) 0.0 L (0.9-7.0) % Basophils % (Manual) 0.0 L (0.2-2.0) % Neutrophils # (Manual) 12.30 H (1.4-6.5) 10^3/uL Lymphocytes # (Manual) 0.90 L (1.20-3.80) 10^3/uL Abs Atypical Lymphs Man 0.45 Monocytes # (Manual) 1.35 H (0.30-0.80) 10^3/uL Eosinophils # (Manual) 0.00 (0.00-0.70) 10^3/uL Basophils # (Manual) 0.00 (0.00-0.10) 10^3/uL Sodium 140 (136-145) mmol/L Potassium 3.1 L (3.5-5.1) mmol/L Chloride 97 L (98-107) mmol/L Carbon Dioxide 31.0 (21.0-32.0) mmol/L Anion Gap 15.1 BUN 59.0 H (7.0-18.0) mg/dL Creatinine 3.53 H (0.55-1.02) mg/dL Est GFR ( Amer) 15 L (>=60 mL/min/1.73m^2) Est GFR (Non-Af Amer) 13 L (>=60 mL/min/1.73m^2) BUN/Creatinine Ratio 16.7 Glucose 159 H (74-106) mg/dL Lactate 2.7 H* 2.4 H* (0.4-2.0) mmol/L Calcium 8.8 (8.5-10.1) mg/dL Total Bilirubin 1.8 H (0.2-1.0) mg/dL AST 47 H (15-37) U/L ALT 52 (14-59) U/L Alkaline Phosphatase 61 (46-116) U/L Troponin I High Sens 443.6 H* (4.0-51.3) pg/mL NT-Pro-B Natriuret Pep 03200.0 H* (<=1800.0) pg/mL Total Protein 6.5 (6.4-8.2) g/dL Albumin 2.3 L (3.4-5.0) g/dL Globulin 4.2 g/dL Albumin/Globulin Ratio 0.5 Lipase 13.0 L (16.0-77.0) U/L Urine Color Dk. yellow (YELLOW) Urine Clarity Clear (CLEAR) Urine pH 5.5 (5.0-9.0) Ur Specific [place] >=1.030 A (1.005-1.025) Urine Protein 30 A (NEG/TRACE) mg/dL Urine Glucose (UA) Negative (NEGATIVE) mg/dL Urine Ketones Negative (NEGATIVE) mg/dL Urine Occult Blood Negative (NEGATIVE) Urine Nitrite Negative (NEGATIVE) Urine Bilirubin Small A (NEGATIVE) Urine Urobilinogen 1.0 (0.2-1.0) EU/dL Ur Leukocyte Esterase Trace A (NEGATIVE) Urine RBC 0-2 (0-2) #/HPF Urine WBC 2-5 A (NONE SEEN) #/HPF Ur Squamous Epith Cells Few A (NONE/RARE) #/LPF Urine Crystals Seen A (None Seen) #/HPF Amorphous Sediment Moderate Urine Bacteria Large A (NONE SEEN) #/HPF Urine Casts Seen A (NONE SEEN) #/LPF Hyaline Casts Many Urine Mucus None seen (NONE SEEN) Ur Culture Indicated? Yes-[facility] 03/03/25 Range/Units 01:37 WBC (4.0-11.0) 10^3/uL RBC (4.20-5.40) 10^6/uL Hgb (12.0-16.0) g/dL Hct (36.0-48.0) % MCV (81.0-99.0) fL MCH (26.7-34.0) pg MCHC (29.9-35.2) g/dL RDW (11.0-15.0) % Plt Count (150-450) 10^3/uL MPV (9.5-13.5) fL Seg Neuts % (Manual) (43.0-75.0) Lymphocytes % (Manual) (20.5-60.0) % Atypical Lymphs % (Man) % Monocytes % (Manual) (1.7-12.0) % Eosinophils % (Manual) (0.9-7.0) % Basophils % (Manual) (0.2-2.0) % Neutrophils # (Manual) (1.4-6.5) 10^3/uL Lymphocytes # (Manual) (1.20-3.80) 10^3/uL Abs Atypical Lymphs Man Monocytes # (Manual) (0.30-0.80) 10^3/uL Eosinophils # (Manual) (0.00-0.70) 10^3/uL Basophils # (Manual) (0.00-0.10) 10^3/uL Sodium (136-145) mmol/L Potassium (3.5-5.1) mmol/L Chloride (98-107) mmol/L Carbon Dioxide (21.0-32.0) mmol/L Anion Gap BUN (7.0-18.0) mg/dL Creatinine (0.55-1.02) mg/dL Est GFR ( Amer) (>=60 mL/min/1.73m^2) Est GFR (Non-Af Amer) (>=60 mL/min/1.73m^2) BUN/Creatinine Ratio Glucose (74-106) mg/dL Lactate (0.4-2.0) mmol/L Calcium (8.5-10.1) mg/dL Total Bilirubin (0.2-1.0) mg/dL AST (15-37) U/L ALT (14-59) U/L Alkaline Phosphatase (46-116) U/L Troponin I High Sens 403.9 H* (4.0-51.3) pg/mL NT-Pro-B Natriuret Pep (<=1800.0) pg/mL Total Protein (6.4-8.2) g/dL Albumin (3.4-5.0) g/dL Globulin g/dL Albumin/Globulin Ratio Lipase (16.0-77.0) U/L Urine Color (YELLOW) Urine Clarity (CLEAR) Urine pH (5.0-9.0) Ur Specific [place] (1.005-1.025) Urine Protein (NEG/TRACE) mg/dL Urine Glucose (UA) (NEGATIVE) mg/dL Urine Ketones (NEGATIVE) mg/dL Urine Occult Blood (NEGATIVE) Urine Nitrite (NEGATIVE) Urine Bilirubin (NEGATIVE) Urine Urobilinogen (0.2-1.0) EU/dL Ur Leukocyte Esterase (NEGATIVE) Urine RBC (0-2) #/HPF Urine WBC (NONE SEEN) #/HPF Ur Squamous Epith Cells (NONE/RARE) #/LPF Urine Crystals (None Seen) #/HPF Amorphous Sediment Urine Bacteria (NONE SEEN) #/HPF Urine Casts (NONE SEEN) #/LPF Hyaline Casts Urine Mucus (NONE SEEN) Ur Culture Indicated? Imaging Data CT scan - abdomen: Attestation: I have reviewed the pertinent imaging results. Radiologist's impression: Radiologist impression: 1 acute cholecystitis 2 normal appendix 3 fatty infiltration of the liver 4 enlarged heart size with small pericardial effusion 5 no free air, abscess or hematoma 6 no bowel or renal obstruction 7 mild sigmoid colon diverticulosis ECG Data Attestation: I personally reviewed and interpreted this ECG as follows: Interpretation: EKG interpretation: Emergency Department physician interpretation. Normal sinus rhythm at 77bpm. First-degree AV block, left axis deviation. Low QRS voltage in chest leads. No ST segment elevation or depression. Critical Care Time Critical Care Time Critical Care Time: Yes Total Critical Care Time: 90 Attestation: Critical Care Time: 90 minutes, critical care time is separate from any procedures that are performed. The following was considered in the determination of critical care but not limited to the level medical decision-making, intensive cardiac and/or respiratory monitor, frequent vital sign monitoring, evaluation of laboratory studies, evaluation of a radiographic studies, oxygen monitoring and constant monitoring. Discharge Plan Discharge Chief Complaint: Abdominal Pain Clinical Impression: Acute cholecystitis, Sepsis, Acute kidney injury, Elevated troponin Patient Disposition: [facility] Time of Disposition Decision: 02:00 Discharge Location: [facility]
[2025-03-02 22:49] LABS: Alanine Aminotransferase 52 U/L (14-59); Albumin Globulin Ratio 0.5; Albumin Level 2.3 g/dL (3.4-5.0); Alkaline Phosphatase 61 U/L (46-116); Anion Gap 15.1; Aspartate Amino Transferase 47 U/L (15-37); BUN Creatinine Ratio 16.7; Bilirubin Total 1.8 mg/dL (0.2-1.0); Calcium 8.8 mg/dL (8.5-10.1); Chloride 97 mmol/L (98-107); Estimated GFR (African America 15 (>=60 mL/min/1.73m^2); Estimated GFR (Non-African Ame 13 (>=60 mL/min/1.73m^2); Globulin 4.2 g/dL; Glucose 159 mg/dL (74-106); Potassium 3.1 mmol/L (3.5-5.1); Sodium 140 mmol/L (136-145); Total Protein 6.5 g/dL (6.4-8.2)
[2025-03-02 23:03] LABS: Atypical Lymphocytes Abs Man 0.45; Monocytes Absolute Manual 1.35 10^3/uL (0.30-0.80)
[2025-03-02 23:08] LABS: Lactate/Lactic Acid 2.7 mmol/L (0.4-2.0); Troponin I High Sensitivity 443.6 pg/mL (4.0-51.3)
[2025-03-03] VITALS (70 sets, daily range): BP systolic 91–126; BP diastolic 25–58; PULSE 68–87; O2SAT 87–95
[2025-03-03] MEDS: CEFTRIAXONE 1,000 MG in 0.9 % SODIUM CHLORIDE 50 ML 100 MG IV (00:23)
[2025-03-03 00:40] LABS: Bilirubin Urine SMALL (NEGATIVE); Blood Urine NEGATIVE (NEGATIVE); Clarity Urine CLEAR (CLEAR); Color Urine DK. YELLOW (YELLOW); Glucose Urine UA NEGATIVE (NEGATIVE); Ketones Urine NEGATIVE (NEGATIVE); Leukocyte Esterase Urine TRACE (NEGATIVE); Nitrite Urine NEGATIVE (NEGATIVE); Protein Urine 30 mg/dL (NEG/TRACE); Specific Gravity Urine >=1.030 (1.005-1.025); pH Urine 5.5 (5.0-9.0)
[2025-03-03 00:56] LABS: Cast Seen? SEEN #/LPF (NONE SEEN)
[2025-03-03 00:58] LABS: Bacteria Urine LARGE #/HPF (NONE SEEN); Hyaline Casts Urine MANY; Mucus Urine NONE SEEN (NONE SEEN); RBC Urine 0-2 #/HPF (0-2); Squamous Epithelial Cell Urine FEW #/LPF (NONE/RARE)
[2025-03-03 00:59] LABS: Amorphous Sediment Urine MODERATE; Crystals Seen? Seen #/HPF (None Seen)
[2025-03-03 01:00] LABS: Urine Culture Indicated YES-FRMC
[2025-03-03] MEDS: 0.9 % SODIUM CHLORIDE 1,000 ML 200 ML IV (01:38)
[2025-03-03 02:14] LABS: Troponin I High Sensitivity 403.9 pg/mL (4.0-51.3)
[2025-03-03 02:15] LABS: Lactate/Lactic Acid 2.4 mmol/L (0.4-2.0)
[2025-03-03] MEDS: METHOCARBAMOL 500 MG TABLET PO (02:35)
[2025-03-03] MEDS: PIPERACILLIN SODIUM/TAZOBACTAM 3.375 GM in 0.9 % SODIUM CHLORIDE 50 ML IV (02:36)
[2025-03-03] MEDS: HYDROMORPHONE HCL 1 MG/ML CARTRIDGE IVP (04:40)
--- NOTE | 2025-03-03 04:53 | PC.NURSE ---
oxygen increased to 5L na for a pulse ox of 87-88% on 4L
[2025-03-03] MEDS: FENTANYL CITRATE/PF 100 MCG/2 ML VIAL 50 MCG IV (10:00)
== END 2025-03-03 10:15 | disposition short-term general hospital (02) ==
PROVIDERS: Emergency Provider Emergency Medicine; PCP Family Medicine
DX: A41.9 Sepsis, unspecified organism (principal); K81.0 Acute cholecystitis; K57.30 Diverticulosis of large intestine without perforation or abscess without bleeding; N17.9 Acute kidney failure, unspecified; R79.89 Other specified abnormal findings of blood chemistry; I50.9 Heart failure, unspecified
CPT/HCPCS: 36415; 51702; 74176; 80053; 81001; 83605; 83690; 83880; 84484; 85007; 85027; 87040; 87086; 93005; 96365; 96367; 96375; 99285; J0696; J1171; J2405; J2543; J3010; Q9966

== ENCOUNTER 2025-05-03 12:34 | Outpatient (OUT) | payer MEDICARE, OTHER, SELFPAY | END 2025-05-03 12:35 | disposition home or self-care (01) | PROVIDERS: PCP Family Medicine; Visit Provider Nurse Practitioner Family | DX: R22.42 Localized swelling, mass and lump, left lower limb (principal) | CPT/HCPCS: 93971 ==

== ENCOUNTER 2025-07-20 10:07 | Emergency (ER) | payer MEDICARE, OTHER, SELFPAY ==
[2025-07-20 10:16] VITALS: BP 164/60; PULSE 62; TEMP 37.6; O2SAT 95; BMI 40.0
--- OUTSIDE RECORDS SUMMARY | 2025-07-20 10:16 | XMS_ITS | CCD ---
Author Organization [facility] Care Team Providers Care In Process Inspector Name Role Phone Furlong, Wild G Unavailable Unavailable Scheufele, Buddhist Unavailable Unavailable Furlong, DO Wild Primary Care Provider MD Bang Nunez Attending Provider Unavailable MD Mohan Mccartney Referring Provider Furlong, DO Wild Primary Care Provider MD Bang Nunez Attending Provider Unavailable MD Mohan Mccartney Referring Provider Furlong, DO Wild Primary Care Provider [phone] MD Mohan Mccartney Referring Provider MD Rose Ohara Attending Provider [phone] ALGHOTHANI, MOHAMAD Admitting Unavailable ALGHOTHANI, MOHAMAD [...] Unavailable Furlong, DO Wild Primary Care Provider [phone] MD Mohan Mccartney Referring Provider MD Rose Ohara Attending Provider Furlong, DO Wild Primary Care Provider [phone] MD Mohan Mccartney Referring Provider MD Rose Ohara Attending Provider [phone] RONALDO, ALY E Referring Unavailable RONALDO, ALY E Admitting Unavailable RONALDO, ALY E Attending Unavailable VALENTINE PICKERING Consulting Unavailable WILD CENTENO Primary Care Unavailable Aly Higgins MD Attending Unavail able DO Wild Centeno Primary Care Provider [phone] ELVIRA Simon Attending Provider MD Mohan Mccartney Referring Provider [phone] MD Rose Ohara Attending Provider MD Mohan Mccartney Referring Provider MD Rose Ohara Attending Provider Unallocated, Noms Provider Primary Care Provider KELBLEY, ZABRINA Attending Unavailable RONALDO, ALY E Referring Unavailable KELBLEY, ZABRINA Attending Unavailable RONALDO, LAY E Referring Unavailable KELBLEY, ZABRINA Attending Unavailable RONALDO, ALY E Referring Unavailable KELBLEY, ZABRINA Attending Unavailable RONALDO, ALY E Referring Unavailable KELBLEY, ZABRINA Attending Unavailable RONALDO, ALY E Referring Unavailable KELBLEY, ZABRINA Attending Unavailable RONALDO, ALY E Referring Unavailable KELBLEY, ZABRINA Attending Unavailable RONALDO, ALY E Referring Unavailable KELBLEY, ZABRINA Attending Unavailable RONALDO, ALY E Referring Unavailable KELBLEY, ZABRINA Attending Unavailable RONALDO, ALY E Referring Unavailable KELBLEY, ZABRINA Attending Unavailable RONALDO, ALY E Referring Unavailable KELBLEY, ZABRINA Attending Unavailable RONALDO, ALY E Referring Unavailable KELBLEY, ZABRINA Attending Unavailable RONALDO, ALY E Referring Unavailable BLACKSTON, DB T Attending Unavailable RONALDO, ALY E Referring Unavailable BLACKSTONDB T Attending Unavailable BRINK VIRGINIA Attending Unavailable RONALDO, ALY E Referring Unavailable BRINK [place] Attending Unavailable RONALDO, ALY E Referring Unavailable KELBLEY, ZABRINA Attending Unavailable RONALDO, ALY E Referring Unavailable HSAN HASKINS Attending Unavailable KELBLEY, ZABRINA Attending Unavailable RONALDO, ALY E Referring Unavailable KELBLEY, ZABRINA Attending Unavailable RONALDO, ALY E Referring Unavailable ZEESHANY, ZABRINA Attending Unavailable RONALDO, ALY E Referring Unavailable FURLONG, WILD G Referring Unavailable FURLONG, WILD G Primary Care Unavailable FURLONG, WILD G Referring Unavailable FURLONG, WILD G Primary Care Unavailable Unallocated , Frankies Provider [facility] Furlong DO, Wild G Primary Care Provider Furlong DO, Wild Primary Care Provider Mohan Mccartney MD Referring Provider [phone] Rose Ohara MD Attending Provider Furlong DO, Wild G Primary Care Provider Furlong DO, Wild Primary Care Provider Mohan Mccartney MD Referring Provider [phone] Rose Ohara MD Attending Provider Jessica Noble DO Attending Provider [phone] Furlong DO, Wild G Primary Care Provider Furlong DO, Wild G Primary Care Provider RAJNI CLINE Attending Unavailable RAJNI CLINE Admitting Unavailable FURLONG, WILD G Primary Care Unavailable JESSICA NOBLE Referring Unavailable MARTA PERKINS Consulting Unavail able PITER WEEMSER Attending Unavail able KENJI-PITER TAPIA Admitting Unavail able FURLONG, WILD G Primary Care Unavailable LITZY DALLAS Consulting Unavailable DONG ZHENG Consulting Unavailable SHAHRIAR RICKS Consulting Unavailable FURLONG, WILD G Attending Unavailable FURLONG, WILD G Referring Unavailable FURLONG, WILD G Primary Care Unavailable FURLONG, WILD G Referring Unavailable FURLONG, WILD G Primary Care Unavailable Shavon Mustafa MD Attending Provider [phone] Furlong DO, Wild Primary Care Provider FURLONG, WILD Primary Care Physician Shavon Mustafa. Attending Unavailable Rose Ohara Referring Unavailable Shavon Mustafa. Attending Unavailable Shavon Mustafa. Attending Unavailable CATHERINE, ALFRED Attending Unavailable CATHERINE, ALFRED Attending Unavailable CATHERINE, ALFRED Attending Unavailable CATHERINE, ALFRED Attending Unavailable CATHERINE, ALFRED Attending Unavailable Furlong, Wild Primary Care Unavailable Sarahe, Shavon M Attending Unavailable Lue, Shavon M Admitting Unavailable Furlong, Wild Primary Care Unavailable Lue, Shavon M Attending Unavailable Lue, Shavon M Admitting Unavailable Furlong, Wild Primary Care Unavailable Mohan Mccartney Referring Unavailable Lev, Rose Attending Unavailable Lev, Rose Admitting Unavailable Hay, Jessica Leyva Attending Unavailable Hay, Jessica Leyva Admitting Unavailable JAMAGIUSEPPE Attending Unavailable FURLONG, WILD G Referring Unavailable FURLONG, WILD G Primary Care Unavailable FURLONG, WILD G Attending Unavailable FURLONG, WILD G Referring Unavailable FURLONG, WILD G Primary Care Unavailable FURLONG, WILD G Attending Unavailable FURLONG, WILD G Referring Unavailable FURLONG, WILD G Primary Care Unavailable SARAH ANSARI Attending Unavailable FURLONG, WILD G Referring Unavailable FURLONG, WILD G Primary Care Unavailable FURLONG, WILD G Attending Unavailable FURLONG, WILD G Referring Unavailable FURLONG, WILD G Primary Care Unavailable MARIE GRAY Attending Unavailable FURLONG, WILD G Referring Unavailable FURLONG, WILD G Primary Care Unavailable FURLONG, WILD G Attending Unavailable FURLONG, IWLD G Referring Unavailable FURLONG, WILD G Primary Care Unavailable Allergies Allergy Classification Reported Allergen(s) Allergy Type Date of Onset Reaction(s) Facility (1 source) No Alert Propensity to adverse reactions to drug 1 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 (20 sources) amLODIPine; Translations: [AMLODIPINE] Drug Allergy 5 Other (See Comments) [facility] (20 sources) Spironolactone; Translations: [SPIRONOLACTONE ] Drug Allergy 5 Other (See Comments) [facility] (1 source) empagliflozin; Translations: [EMPAGLIFLOZIN] Drug Allergy 4 [facility] Repository Medications Current Medications Medication Drug Class(es) Dates Sig (Normalized) Sig (Original) acetaminophen 325 mg / oxyCODONE hydrochloride 5 mg oral tablet (2 sources) Opioid Agonist Start: 03-10-2025 End: 03-13-2025 take 1 tablet by mouth every six hours as needed for pain oxyCODONE-acetami nophen (PERCOCET) 5-325 mg per tablet Take 1 tablet by mouth every 6 (six) hours as needed for pain. 03/10/2025 03/13/2025 Active Start: 03-10-2025 End: 03-13-2025 Acidophilus Probiotic Blend (1 source) Start: 01-16-2025 Acidophilus Pr obiotic Blend Refill(s) 0 Start Date: 01/16/25 Status: Ordered Repeat number: 1 allopurinol 100 mg oral tablet (20 sources) Xanthine Oxidase Inhibitor Start: 01-16-2025 allopurinol Refills( s) 0 Start Date: 01/16/25 Status: Ordered Repeat number: 1 Start: 12-23-2023 End: 02-12-2025 take 1 tablet by mouth in the morning allopurinoL (ZYLOPRIM) 100 mg tablet TAKE 1 TABLET BY MOUTH IN THE MORNING 30 tablet 5 02/12/2025 Active amoxicillin 875 mg / clavulanate 125 mg oral tablet (2 sources) Penicillin-class Antibacterial Start: 03-10-2025 End: 03-15-2025 take 1 tablet by mouth once amoxicillin-pot clavulanate (AUGMENTIN) 875-125 mg per tablet Take 1 tablet by mouth every 12 (twelve) hours. 03/10/2025 03/15/2025 Active Start: 03-10-2025 End: 03-15-2025 blood-glucose sensor (DEXCOM G7 SENSOR) device (20 sources) Start: 10-26-2023 blood-glucose sensor (DEXCOM G7 SENSOR) device Indications: 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 ([facility]) 1 Unit by miscellaneous route every 10 days. 3 each 5 10/26/2023 Active carvedilol 25 mg oral tablet (20 sources) alpha-Adrenergic Sophy, beta-Adrenergic Sophy Start: 04-11-2019 End: 08-20-2024 take 1 tablet by mouth in the morning, then take 1 tablet by mouth at bedtime carvediloL (COREG) 25 mg tablet Indications: 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 ([facility]) Take 1 tablet (25 mg total) by mouth in the morning and 1 tablet (25 mg total) before bedtime. 180 tablet 3 08/20/2024 Active cholestyramine resin 4000 mg powder for oral suspension (11 sources) Bile Acid Sequestrant Start: 05-15-2025 cholestyramine (QUESTRAN) 4 g packet mix 1 packed DIRECTED and take BY MOUTH DAILY 30 packet 1 05/15/2025 Active Start: 05-14-2025 End: 05-15-2025 take 4 g by mouth in the morning cholestyramine 4 gram powder Take 4 g by mouth in the morning. 239.4 g 1 05/14/2025 05/15/2025 Discontinued clobetasol propionate 0.0005 mg/mg topical ointment (20 sources) Corticosteroid Start: 07-16-2025 Start: 06-14-2024 End: 04-07-2025 clobetasoL (TEMOVATE) 0.05 % ointment Apply 1 Application topically in the morning and 1 Application before bedtime 15 g 04/07/2025 Active colchicine 0.6 mg oral tablet (3 sources) Start: 07-04-2025 End: 07-09-2025 take 1 tablet by mouth in the morning, then take 1 tablet by mouth at bedtime colchicine (COLCRYS) 0.6 mg tablet Take 1 tablet (0.6 mg total) by mouth in the morning and 1 tablet (0.6 mg total) before bedtime. Do all this for 5 days. 10 tablet 07/04/2025 07/09/2025 Active Start: 12-23-2023 End: 12-27-2023 take 1 tablet [...] days. 8 tablet 0 12/23/2023 12/27/2023 Active Drug or medicament (substance) (2 sources) dulaglutide (12 sources) GLP-1 Receptor Agonist Start: 01-16-2025 Trulicity Pen See Instructions, Refills(s) 0 Start Date: 01/16/25 Status: Ordered Repeat number: 1 Start: 04-11-2019 End: 12-15-2023 Dulaglutide 1.5 mg/0.5 mL pe n injector Discontinued 0.75 MG SUBCUT every week April 11, 2019 12:00am December 15, 2023 11:19am Start: 04-11-2019 End: 12-15-2023 inject 0.75 mg by subcutaneous injection every week Dulaglutide Discontinued 0.75 MG SUBCUT every week April 10, 2019 11:00pm December 15, 2023 10:19am ergocalciferol 1.25 mg oral capsule (11 sources) Provitamin D2 Compound Start: 01-15-2024 End: 07-16-2024 take 1 capsule by mouth every week ergocalciferol (DRISDOL) 1,250 mcg (50,000 unit) capsule Take 1 capsule (50,000 Units total) by mouth once a week. 12 capsule 1 01/15/2024 07/16/2024 Discontinued (Discontinued by another clinician) gabapentin 100 mg oral capsule (5 sources) Anti-epileptic Agent Start: 07-19-2025 take 1 capsule by mouth three times daily gabapentin (NEURONTIN) 100 mg capsule Indications: Degeneration of intervertebral disc of lumbar region with discogenic back pain Take 1 capsule (100 mg total) by mouth 3 (three) times a day. 90 capsule 07/19/2025 Active Start: 04-10-2025 End: 04-23-2025 take 1 capsule by mouth three times daily gabapentin (NEURONTIN) 300 mg capsule Take 1 capsule (300 mg total) by mouth 3 (three) times a day. 04/13/2025 04/23/2025 glucagon (rdna) 1 mg injecti on (2 sources) Antihypoglycemic Agent Start: 04-10-2025 Start: 03-03-2025 1000 ml glucose 100 mg/ml in jection (5 sources) Start: 04-10-2025 Start: 04-10-2025 dextrose bolus 10% 125 mL Start: 04-10-2025 Start: 03-05-2025 End: 03-06-2025 Start: 03-03-2025 1 ml hydrALAZINE hydrochloride 20 mg/ml injection (1 source) Arteriolar Vasodilator Start: 04-10-2025 3 ml insulin aspart, human 100 unt/ml pen injector (20 sources) Insulin Analog Start: 07-17-2025 insulin aspart U-100 (NovoLOG Flexpen U-100 Insulin) 100 unit/mL (3 mL) insulin pen Inject 8 Units under the skin in the morning and 8 Units at noon and 8 Units in the evening. Inject with meals. 07/17/2025 Active Start: 07-16-2025 inject 6 [IU] by sub cutaneous injection once before mealtime Start: 03-27-2025 Insulin Aspart FlexPen 100 UNIT/ML SOPN Inject 6 Units into the skin 3 times daily as needed 03/27/2025 Active Start: 07-13-2023 End: 07-17-2025 insulin aspart U-100 (NovoLO G Flexpen U-100 Insulin) 100 unit/mL (3 mL) insulin pen Inject 6 Units under the skin in the morning and 6 Units at noon and 6 Units in the evening. Inject with meals. 15 mL 1 03/27/2025 07/17/2025 Discontinued 3 ml insulin degludec 100 un t/ml pen injector (20 sources) Insulin Analog Start: 07-16-2025 Start: 04-24-2025 insulin deglud ec (TRESIBA FLEXTOUCH U-100) 100 unit/mL (3 mL) insulin pen Indications: Type 2 diabetes mellitus with stage 2 chronic kidney disease, with long-term current use of insulin ([facility]) Inject 50 Units under the skin nightly. 45 mL 1 04/24/2025 Active Start: 03-21-2025 End: 04-24-2025 insulin degludec (TRESIBA FLEXTOUCH U-100) 100 unit/mL (3 mL) insulin pen Inject 50 Units under the skin nightly. 03/21/2025 04/24/2025 Discontinued (Reorder) Start: 03-21-2025 Insulin Deglud ec 100 UNIT/ML SOPN Inject 10 Units into the skin nightly 03/21/2025 Active Start: 07-18-2024 End: 03-21-2025 inject 10 [IU] by subcutaneous injection once daily insulin degludec (TRESIBA FLEXTOUCH U-100) 100 unit/mL (3 mL) insulin pen Inject 10 Units under the skin nightly. 15 mL 1 07/18/2024 03/21/2025 Discontinued insulin glargine 100 unt/ml injectable solution (4 sources) Insulin Analog Start: 03-07-2025 End: 03-08-2025 Start: 04-15-2023 End: 12-23-2023 insulin glargine U-300 conc (TOUJEO MAX U-300 SOLOSTAR) 300 unit/mL (3 mL) insulin pen Inject 60 Units under the skin in the evening. 6 mL 2 04/15/2023 12/23/2023 Discontinued (Cost of medication) Novolin N (1 source) Start: 01-16-2025 Novolin N See Instructions, Refills(s) 0 Start Date: 01/16/25 Status: Ordered Repeat number: 1 Insulin NPH Human, Isophane, (NOVOLIN N SC) (1 source) Insulin NPH Julia n, Isophane, (NOVOLIN N SC) Inject 60 Units into the skin Daily Active labetalol hydrochloride 5 mg/ml injectable solution (1 source) beta-Adrenergic Sophy Start: 04-10-2025 lisinopril 40 mg oral tablet (20 sources) Angiotensin Converting Enzyme Inhibitor Start: 04-11-2019 End: 02-08-2025 take 1 tablet by mouth in the morning lisinopriL (PRINIVIL,ZESTRIL) 40 mg tablet Take 1 tablet (40 mg total) by mouth in the morning. 90 tablet 1 02/08/2025 Active magnesium oxide 400 mg oral tablet (20 sources) Start: 01-15-2024 End: 03-10-2025 magnesium oxide 400 mg magnesium tablet Magnesium 90 tablet 1 08/20/2024 Active melatonin 3 mg oral tablet (1 source) Start: 03-08-2025 metFORMIN hydrochloride 1000 mg oral tablet (20 sources) Biguanide Start: 04-11-2019 End: 08-20-2024 take 1 tablet by mouth in the morning, then take 1 tablet by mouth at mealtime metFORMIN (GLUCOPHAGE) 1000 mg tablet Take 1 tablet (1,000 mg total) by mouth in the morning and 1 tablet (1,000 mg total) in the evening. Take with meals. 180 tablet 3 08/20/2024 Active midodrine hydrochloride 5 mg oral tablet (1 source) alpha-Adrenergic Agonist Start: 03-04-2025 ondansetron (ZOFRAN-ODT) disintegrating tablet 4 mg (1 source) Start: 04-10-2025 ondansetron (ZOFRAN-ODT) disintegrating tablet 4 mg pantoprazole 40 mg delayed release oral tablet (20 sources) Proton Pump Inhibitor Start: 03-10-2025 take 1 tablet by mouth in the morning, then take 1 tablet by mouth before mealtime pantoprazole (PROTONIX) 40 mg EC tablet Take 1 tablet (40 mg total) by mouth in the morning and 1 tablet (40 mg total) in the evening. Take before meals. 03/10/2025 Active Start: 03-07-2025 take 1 tablet by montrell th twice daily before mealtime pantoprazole (PROTONIX) 40 MG tablet Take 1 tablet by mouth 2 times daily (before meals) 30 tablet 3 03/10/2025 Active polyethylene glycol 3350 15864 mg powder for oral solution (1 source) Osmotic Laxative Start: 03-03-2025 predniSONE 20 mg oral tablet (3 sources) Start: 05-03-2025 End: 05-08-2025 take 1 tablet by mouth in the morning, then take 1 tablet by mouth at bedtime predniSONE (DELTASONE) 20 mg tablet Take 1 tablet (20 mg total) by mouth in the morning and 1 tablet (20 mg total) before bedtime. Do all this for 5 days. 10 tablet 05/03/2025 05/08/2025 Active 50 ml sodium chloride 9 mg/ml injection (8 sources) Start: 04-10-2025 Start: 04-10-2025 5-40 mL, Intra VENous, EVERY 12 HOURS SCHEDULED (2 times per day), First dose on Tue04/10/25 at 2230, Until Discontinued, For Line Patency: Peripheral IV = 5 mL; Midline or Central Line = 10 mL/lumen. If following IV push medication, administer flush at same rate as the IV push. Flush volume is determined by type of infusion therapy being given. For non-viscous solutions use: Peripheral IV = 5 mL Midline or Central Line = 10 mL/lumen For viscous solutions (i.e. blood components, parenteral nutrition, contrast media, or after obtaining blood sample) use: Peripheral IV = 10 mL Midline or Central Line = 20 mL/lumen, Post-op Start: 04-10-2025 Start: 03-03-2025 Start: 03-03-2025 End: 03-04-2025 suzetrigine (JOURNAVX) 50 mg tablet (6 sources) Start: 07-17-2025 take 1 tablet by mouth once suzetrigine (JOURNAVX) 50 mg tablet Indications: Degeneration of intervertebral disc of lumbar region with discogenic back pain Take 1 tablet (50 mg total) by mouth every 12 (twelve) hours. 30 tablet 1 07/17/2025 Active Start: 07-17-2025 take 1 tablet by montrell th every twelve hours suzetrigine (JOURNAVX) 50 mg tablet Take 1 tablet (50 mg total) by mouth every 12 (twelve) hours. 5 tablet 07/17/2025 Active traMADol hydrochloride 50 mg oral tablet (2 sources) Opioid Agonist Start: 08-16-2024 End: 08-23-2024 take 1 tablet by mouth every eight hours as needed for pain traMADoL (ULTRAM) 50 mg tablet Indications: Lumbar back pain Take 1 tablet (50 mg total) by mouth every 8 (eight) hours as needed for pain for up to 7 days. 21 tablet 08/16/2024 08/23/2024 Active Vit C-E-Zinc Hxp-Xhjzds-Qhgrqb ([facility]) 50 mg-15 unit- 4.5 mg-2.5 mg Tablet,Chewable (11 sources) Start: 04-11-2019 take 1 tablet by mouth once daily Vit C-E-Zinc Tbo-Lrsjpy-Qintvg ([facility]) 50 mg-15 unit- 4.5 mg-2.5 mg Tablet,Chewable Active 1 TAB PO Daily April 11, 2019 8:39am Start: 04-11-2019 End: 07-16-2025 take 1 tablet by mouth once daily Vit C-E-Zinc Brn-Vvyuzp-Gqwbzq ([facility]) 50 mg-15 unit- 4.5 mg-2.5 mg Tablet,Chewable Discontinued 1 TAB PO Daily April 11, 2019 12:00am July 16, 2025 10:54am Start: 04-11-2019 take 1 tablet by montrell once daily Start: 04-11-2019 take 1 tablet by montrell th once daily Vit C-E-Zinc Esj-Pxygpe-Qlnrqq ([facility]) 50 mg-15 unit- 4.5 mg-2.5 mg Tablet,Chewable Active 1 TAB PO Daily April 10, 2019 11:00pm Start: 04-11-2019 take 1 tablet by montrell th once daily Vit C-E-Zinc Vml-Lsbwdh-Exhpax ([facility]) 50 mg-15 unit- 4.5 mg-2.5 mg Tablet,Chewable Active 1 TAB PO Daily April 11, 2019 12:00am (1 source) (8 sources) Start: 03-06-2025 Start: 03-04-2025 [Order 1 Start ] Name: potassium chloride (KLOR-CON M) extended release tablet 40 mEq Signed Summary: 40 mEq, Oral, PRN, Starting on Tue03/04/25 at 1649, Until Discontinued, Potassium Replacement, May give alternative linked oral order (ordered as effervescent, packet, or liquid solution) if patient unable to tolerate tablet. K Lab Replacement Action 3.1 to 3.5 40 mEq ORAL x 1 Under 3.1 Refer to IV replacement protocol Recheck K level in AM. Protocol not for use in patients with CrCl less than 30 mL/min. Do not crush, chew, or suck on tablet. Tablet may also be broken in half and each half swallowed separately. [Order 1 End] [Order 2 Start] Name: potassium bicarb-citric acid (EFFER-K) effervescent tablet 40 mEq Signed Summary: 40 mEq, Oral, PRN, Starting on Tue03/04/25 at 1649, Until Discontinued, Per Potassium Replacement Protocol, Administer as alternative if patient unable to tolerate oral tablet. K Lab Replacement Action 3.1 to 3.5 40 mEq ORAL x 1 Under 3.1 Refer to IV replacement protocol Recheck K level in AM. Protocol not for use in patients with CrCl less than 30 mL/min. Do not chew or crush. Dissolve flavored tablets completely in 3 to 4 ounces of cold water; unflavored tablets may be dissolved in 3 to 4 ounces of cold juice. Patient to sip slowly over a 5 to 10 minute period. May further dilute if GI adverse effects occur. [Order 2 End] [Order 3 Start] Name: potassium chloride 10 mEq/100 mL IVPB (Peripheral Line) Signed Summary: 10 mEq, IntraVENous, PRN, Starting on 03/04/25 at 1649, Until Discontinued, at 100 mL/hr, Potassium Replacement, K Lab Replacement Action 2.7 to 3.0 10 mEq IVPB x 6 doses (60 mEq Total) Under 2.7 CALL PROVIDER and administer 10 mEq IVPB x 6 doses (60 mEq Total) Infuse at 10 mEq/hr. Repeat Potassium lab 1 hour after final administration. Protocol not for use in patients with CrCl less than 30 mL/min. [Order 3 End] Start: 03-04-2025 End: 03-07-2025 Start: 03-03-2025 [Order 1 Start ] Name: dextrose bolus 10% 125 mL Signed Summary: 125 mL, IntraVENous, at 937.5 mL/hr, Administer over 8 Minutes, PRN, Other, Blood glucose 40 - 69 mg/dL and patient NOT ALERT or NPO, Starting on 03/03/25 at 1456, Repeat blood glucose in 15 minutes. If blood glucose remains LESS THAN 70 mg/dL, repeat treatment and recheck blood glucose in 15 minutes x 2. If using glycemic management system, dose as instructed per system. If blood glucose remains LESS THAN 70 mg/dL after 2 intravenous boluses start dextrose 10% at 100 mL/hour and notify provider. [Order 1 End] [Order 2 Start] Name: dextrose bolus 10% 250 mL Signed Summary: 250 mL, IntraVENous, at 937.5 mL/hr, Administer over 16 Minutes, PRN, Other, Blood glucose LESS THAN 40 mg/dL and patient NOT ALERT or NPO, Starting on 03/03/25 at 1456, Repeat blood glucose in 15 minutes. If blood glucose remains LESS THAN 70 mg/dL, repeat treatment and recheck blood glucose in 15 minutes x 2. If using glycemic management system, dose as instructed per system. If blood glucose remains LESS THAN 70 mg/dL after 2 intravenous boluses start dextrose 10% at 100 mL/hour and notify provider. [Order 2 End] Start: 03-03-2025 End: 03-06-2025 Start: 03-03-2025 End: 03-03-2025 Start: 03-03-2025 [Order 1 Start ] Name: acetaminophen (TYLENOL) tablet 650 mg Signed Summary: 650 mg, Oral, EVERY 6 HOURS PRN, Starting on 03/03/25 at 1148, Until Discontinued, Pain Mild (1-3), allowed for higher pain score per patient request, Fever, For temp greater than 100.4 F (38 C), Maximum dose of acetaminophen is 4000 mg from all sources in 24 hours. [Order 1 End] [Order 2 Start] Name: acetaminophen (TYLENOL) suppository 650 mg Signed Summary: 650 mg, Rectal, EVERY 6 HOURS PRN, Starting on 03/03/25 at 1148, Until Discontinued, Pain Mild (1-3), allowed for higher pain score per patient request, Fever, For temp greater than 100.4 F (38 C), Administer if oral route cannot be used. [Order 2 End] Start: 03-03-2025 [Order 1 Start ] Name: ondansetron (ZOFRAN-ODT) disintegrating tablet 4 mg Signed Summary: 4 mg, Oral, EVERY 8 HOURS PRN, Starting on 03/03/25 at 1148, Until Discontinued, Nausea, Vomiting [Order 1 End] [Order 2 Start] Name: ondansetron (ZOFRAN) injection 4 mg Signed Summary: 4 mg, IntraVENous, EVERY 6 HOURS PRN, Starting on 03/03/25 at 1148, Until Discontinued, Nausea, Vomiting, Administer if oral route cannot be used. [Order 2 End] (1 source) Start: 03-03-2025 Completed/Discontinued Medications Medication Drug Class(es) Dates Sig (Normalized) Sig (Original) acetaminophen 500 mg oral tablet (1 source) Start: 04-10-2025 take 1 dose by mouth three times daily, then take 4000 mg by mouth every twenty-four hours 1,000 mg, Oral, EVERY 8 HOURS SCHEDULED (3 times per day), First dose on Tue04/10/25 at 2315, Until Discontinued, Maximum dose of acetaminophen is 4000 mg from all sources in 24 hours. alendronic acid 35 mg oral tablet (20 sources) Bisphosphonate Start: 04-11-2019 End: 07-16-2024 take 1 tablet by mouth every week Alendronate 35 mg tablet Discontinued 35 MG PO every week April 11, 2019 12:00am December 15, 2023 11:19am amLODIPine 5 mg oral tablet (20 sources) Dihydropyridine Calcium Channel Sophy Start: 04-11-2019 End: 03-21-2025 take 1 tablet by mouth once daily Amlodipine 5 mg tablet Discontinued 5 MG PO Daily April 11, 2019 12:00am December 15, 2023 11:19am amoxicillin 500 mg oral capsule (11 sources) Penicillin-class Antibacterial Start: 04-11-2019 End: 04-13-2019 take 1 capsule by mouth three times daily Amoxicillin 500 mg capsule Discontinued 500 MG PO Three times daily April 11, 2019 12:00am April 13, 2019 11:01am aspirin 81 mg chewable tablet (20 sources) Platelet Aggregation Inhibitor, Nonsteroidal Anti-inflammatory Drug Start: 03-09-2025 take 81 mg by mouth once daily 81 mg, Oral, DAILY, First dose on Tue04/11/25 at 0900, Until Discontinued Start: 01-16-2025 take 81 mg by mouth once daily aspirin 81 mg, Oral, Daily, Refills(s) 0 Start Date: 01/16/25 Status: Ordered Repeat number: 1 Start: 10-01-2020 take 1 tablet by montrell th once daily Start: 04-11-2019 End: 04-13-2019 take 1 tablet by mouth once daily Aspirin 81 mg Tablet,Delayed Release (Dr/Ec) Discontinued 81 MG PO Daily April 11, 2019 12:00am April 13, 2019 1:11pm baclofen 10 mg oral tablet (1 source) gamma-Aminobutyric Acid-ergic Agonist Start: 04-15-2023 End: 12-23-2023 take 1 tablet by mouth three times daily as needed for muscle spasms baclofen (LIORESAL) 10 mg tablet Indications: Strain of left buttock, initial encounter Take 1 tablet (10 mg total) by mouth 3 (three) times a day as needed for muscle spasms. 60 tablet 0 04/15/2023 12/23/2023 Discontinued (Therapy completed) calcium chloride 0.0014 meq/ml / potassium chloride 0.004 meq/ml / sodium chloride 0.103 meq/ml / sodium lactate 0.028 meq/ml injectable solution (4 sources) Start: 04-10-2025 End: 04-11-2025 IntraVENous, at 75 mL/hr, CONTINUOUS, Starting on Tue04/10/25 at 2230, Post-op Start: 03-03-2025 End: 03-05-2025 100 ml calcium gluconate 20 mg/ml injection (1 source) Start: 04-10-2025 End: 04-11-2025 2,000 mg, IntraVENous, at 50 mL/hr, Administer over 120 Minutes, ONCE, On Tue04/10/25 at 2330, For 1 dose ceFAZolin (ANCEF) 2000 mg in sterile water 20 mL IV syringe (1 source) Start: 04-11-2025 End: 04-11-2025 2,000 mg, IntraVENous, EVERY 8 HOURS, First dose on Tue04/11/25 at 0130, For 24 hours, Administer over 5 mins., Post-op dapagliflozin 5 mg oral tablet (11 sources) Sodium-Glucose Cotransporter 2 Inhibitor Start: 03-31-2022 End: 04-13-2023 take 1 tablet by mouth once daily Dapagliflozin Propanediol (Farxiga) 5 mg Tablet Discontinued 5 MG PO Daily March 31, 2022 12:00am April 13, 2023 9:17am empagliflozin 25 mg oral tablet (11 sources) Sodium-Glucose Cotransporter 2 Inhibitor Start: 10-01-2020 End: 03-31-2022 take 1 tablet by mouth once daily Empagliflozin (Jardiance) 25 mg Tablet Discontinued 25 MG PO Daily October 01, 2020 1:00am March 31, 2022 1:23pm 0.4 ml enoxaparin sodium 100 mg/ml prefilled syringe (2 sources) Low Molecular Weight Heparin Start: 04-11-2025 inject 40 mg by subcutaneous injection once daily 40 mg, SubCUTAneous, DAILY, First dose on Tue04/11/25 at 0900, Until Discontinued, Indication of Use: Prophylaxis-DVT/P E, Administer by deep subCUTAneous injection with pt lying down. Alternate injection sites on abdominal wall. Do not rub site after injection. Check with provider prior to any invasive procedure., Post-op Start: 03-06-2025 2 ml fentaNYL 0.05 mg/ml injection (1 source) Opioid Agonist Start: 03-04-2025 End: 03-04-2025 furosemide 20 mg oral tablet (20 sources) Loop Diuretic Start: 05-03-2025 End: 05-14-2025 furosemide (LASIX) 20 mg tablet Lasix 20mg nightly for 5 days. Should continue the 40mg in am. 5 tablet 05/03/2025 05/14/2025 Discontinued (Therapy completed) Start: 04-13-2025 take 20 mg by mouth once daily 20 mg, Oral, DAILY, First dose (after last modification) on 04/13/25 at 0900, Until Discontinued Start: 03-09-2025 Start: 03-05-2025 Start: 12-16-2023 End: 07-16-2024 take 1 tablet by mouth once daily furosemide (LASIX) 20 mg tablet take 1 tablet by mouth once daily 12/16/2023 07/16/2024 Discontinued (Discontinued by another clinician) Start: 01-11-2022 End: 04-12-2025 take 1 tablet by mouth once daily furosemide (LASIX) 40 mg tablet Take 1 tablet (40 mg total) by mouth daily. 08/20/2024 Active Start: 12-30-2021 End: 01-11-2022 take 1 tablet by mouth once daily Furosemide (Lasix) 20 mg Tablet Discontinued 20 MG PO Daily December 30, 2021 1:00am January 11, 2022 2:27pm take 2 tablets by mo uth once daily furosemide (LASIX) 20 MG tablet Take 2 tablets by mouth daily Active hydroCHLOROthiazide 25 mg oral tablet (11 sources) Thiazide Diuretic Start: 04-11-2019 End: 04-13-2023 take 1 tablet by mouth once daily Hydrochlorothiazide 25 mg tablet Discontinued 25 MG PO Daily April 11, 2019 12:00am April 13, 2023 9:18am 1 ml HYDROmorphone hydrochloride 1 mg/ml cartridge (8 sources) Opioid Agonist Start: 04-10-2025 End: 04-10-2025 0.5 mg, IntraVENous, EVERY 5 MIN PRN, 4 doses, Starting on Tue04/10/25 at 2044, Until Tue04/10/25 at 2203, Pain Severe (7-10), Phase I - Initial therapy for severe pain., PACU only Start: 04-10-2025 End: 04-10-2025 0.25 mg, IntraVENous, EVERY 5 MIN PRN, 4 doses, Starting on Tue04/10/25 at 2044, Until Tue04/10/25 at 2203, Pain Moderate (4-6), allowed for higher pain score per patient request, Phase I - Initial therapy for moderate pain., PACU only Start: 03-06-2025 Start: 03-04-2025 End: 03-04-2025 Start: 03-04-2025 End: 03-04-2025 Start: 03-03-2025 End: 03-06-2025 3 ml insulin detemir 100 unt/ml pen injector (11 sources) Insulin Analog Start: 04-11-2019 End: 03-31-2022 inject 70 [IU] by subcutaneous injection once daily at bedtime Insulin Detemir U-100 100 unit/mL (3 mL) insulin pen Discontinued 70 UNITS SUBCUT Daily at bedtime April 11, 2019 12:00am March 31, 2022 1:23pm insulin lispro 100 unt/ml injectable solution (4 sources) Insulin Analog Start: 04-10-2025 0-16 Units, SubCUTAneous, 4 TIMES DAILY BEFORE MEALS & NIGHTLY, First dose on Tue04/10/25 at 2230, Until Discontinued, High Dose Corrective Algorithm Glucose: Dose: 70-179 No Insulin 180-249 4 Units 250-299 8 Units 300-349 12 Units Over 349 16 Units and notify physician Administer as soon as possible within 60 minutes of last blood glucose check, Post-op Start: 03-03-2025 End: 03-08-2025 2 ml ketorolac tromethamine 30 mg/ml injection (2 sources) Nonsteroidal Anti-inflammatory Drug, Cyclooxygenase Inhibitor Start: 08-16-2024 End: 08-16-2024 15 mg, intramuscular, Once, On Tue08/16/24 at 1600, For 1 dose, Look-alike/sound-alike medication - verify indication for use. Duration of therapy is not to exceed 5 days. Maximum recommended dose + 120mg/24 hours. Start: 08-16-2024 End: 08-16-2024 ketorolac (TORADOL) injectio n 15 mg 50 ml magnesium sulfate 40 mg/ml injection (3 sources) Start: 04-11-2025 End: 04-11-2025 2,000 mg, IntraVENous, at 25 mL/hr, Administer over 2 Hours, ONCE, On Tue04/11/25 at 0000, For 1 dose, Recommended infusion rate not to exceed 1,000 mg (milligrams) per hour. Start: 03-10-2025 End: 03-10-2025 Start: 01-16-2025 magnesium sulf ate Refills(s) 0 Start Date: 01/16/25 Status: Ordered Repeat number: 1 meloxicam 7.5 mg oral tablet (11 sources) Nonsteroidal Anti-inflammatory Drug Start: 03-23-2021 End: 07-01-2022 Meloxicam 7.5 mg Tablet Discontinued 7.5 PO Daily as needed for Pain March 23, 2021 12:00am July 01, 2022 10:30am methocarbamol 500 mg oral tablet (4 sources) Muscle Relaxant Start: 04-13-2025 End: 04-23-2025 take 1 tablet by mouth three times daily methocarbamoL (ROBAXIN) 500 mg tablet Take 1 tablet (500 mg total) by mouth 3 (three) times a day. 04/13/2025 04/23/2025 Start: 04-10-2025 End: 04-13-2025 take 750 mg by mouth four times daily 750 mg, Oral, 4 TIMES DAILY, First dose on Tue04/10/25 at 2315, Until Discontinued 2 ml midazolam 1 mg/ml injection (1 source) Benzodiazepine Start: 03-04-2025 End: 03-04-2025 Multiple Vitamins-Minerals (PRESERVISION AREDS PO) (1 source) End: 04-08-2025 take 1 capsule by mouth once daily Multiple Vitamins-Minerals (PRESERVISION AREDS PO) Take 1 capsule by mouth daily 04/08/2025 Discontinued (Therapy completed) oxyCODONE hydrochloride 5 mg oral tablet (4 sources) Opioid Agonist Start: 04-13-2025 End: 04-18-2025 take 1 tablet by mouth every four hours as needed for pain oxyCODONE (ROXICODONE) 5 mg immediate release tablet Take 1 tablet (5 mg total) by mouth every 4 (four) hours as needed for pain. 04/13/2025 04/18/2025 Start: 04-11-2025 oxyCODONE (MELANIE ICODONE) immediate release tablet 5 mg Start: 04-10-2025 End: 04-11-2025 take 5 mg by mouth every six hours as needed for pain 5 mg, Oral, EVERY 6 HOURS PRN, Starting on Tue04/10/25 at 2246, Until Tue04/11/25 at 0446, Pain Severe (7-10) microencapsulated potassium chloride 20 meq extended release oral tablet (19 sources) Start: 03-10-2025 End: 03-10-2025 Start: 03-03-2025 End: 03-04-2025 Start: 04-11-2019 End: 12-26-2024 take 1 tablet by mouth once daily Potassium Chloride 20 mEq tablet extended release Discontinued 20 MEQ PO Daily April 11, 2019 12:00am December 26, 2024 2:03pm rosuvastatin calcium 20 mg oral tablet (20 sources) HMG-CoA Reductase Inhibitor Start: 04-11-2025 take 10 mg by mouth once daily 10 mg, Oral, NIGHTLY, First dose on Tue04/11/25 at 2100, Until Discontinued Start: 04-11-2019 End: 02-12-2025 take 1 tablet by mouth once daily in the morning rosuvastatin (CRESTOR) 10 mg tablet Take 1 tablet (10 mg total) by mouth every morning. 90 tablet 1 02/12/2025 Active spironolactone 25 mg oral tablet (20 sources) Aldosterone Antagonist Start: 12-30-2021 End: 07-16-2025 take 1 tablet by mouth once daily Spironolactone 25 mg Tablet Discontinued 25 MG PO Daily December 30, 2021 1:00am July 16, 2025 10:53am tiZANidine 2 mg oral tablet (9 sources) Central alpha-2 Adrenergic Agonist Start: 08-16-2024 End: 03-21-2025 take 1 tablet by mouth every eight hours as needed for muscle spasms tiZANidine (ZANAFLEX) 2 mg tablet Indications: Lumbar paraspinal muscle spasm Take 1 tablet (2 mg total) by mouth every 8 (eight) hours as needed for muscle spasms. 20 tablet 08/16/2024 03/21/2025 Discontinued (Therapy completed) (2 sources) Start: 03-05-2025 End: 03-05-2025 Start: 03-04-2025 End: 03-04-2025 (1 source) Start: 03-04-2025 End: 03-07-2025 (1 source) Start: 03-04-2025 End: 05-01-2025 (1 source) Start: 03-04-2025 End: 03-04-2025 Problems Active Problems Problem Classification Problem Date Documented Date Episodic/Chronic Acute and unspecified renal failure (3 sources) Acute renal failure syndrome; Translations: [Acute kidney failure, unspecified] Onset: 03-09-20 25 03-09-2025 Episodic Calculus of urinary tract (2 sources) History of calculus of kidney; Translations: [Personal history of urinary calculi] Onset: 06-19-20 Episodic Cardiac dysrhythmias (2 sources) Irregular heart beat; Translations: [Cardiac arrhythmia, unspecified] Onset: 05-03-20 25 05-03-2025 Chronic Chronic kidney disease (2 sources) Chronic kidney disease, stage 2 (mild); Translations: [CHRONIC KIDNEY DISEASE STAGE 2 MILD] Onset: 08-05-20 Chronic Chronic kidney disease (2 sources) Chronic kidney disease; Translations: [Chronic kidney disease, stage 3a] Onset: 03-14-20 Coma; stupor; and brain damage (1 source) Daytime somnolence 04-29-2025 Episodic Congestive heart failure; nonhypertensive (4 sources) Acute on chronic diastolic (congestive) heart failure; Translations: [Chronic diastolic (congestive) heart failure] Onset: 01-18-20 Chronic Diabetes mellitus with complications (20 sources) Type 2 diabetes mellitus with diabetic chronic kidney disease; Translations: [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 3 due to type 2 diabetes mellitus] Onset: 08-26-20 Chronic Diabetes mellitus without complication (20 sources) Diabetes mellitus; Translations: [Type 2 diabetes mellitus without complications] Onset: 03-04-20 16 02-09-2021 Chronic Disorders of lipid metabolism (20 sources) Mixed hyperlipidemia; Translations: [Mixed hyperlipidemia] Onset: 12-25-19 Chronic Essential hypertension (20 sources) Essential (primary) hypertension; Translations: [Essential hypertension] Onset: 08-05-20 22 08-05-2022 Chronic Fracture of upper limb (1 source) Fracture of upper limb 01-16-2025 Episodic Genitourinary symptoms and ill-defined conditions (2 sources) Nocturia; Translations: [Nocturia] Onset: 06-17-20 25 06-17-2025 Episodic Gout and other crystal arthropathies (4 sources) Gout, unspecified; Translations: [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] Onset: 01-11-20 24 12-23-2023 Chronic Hypertension with complications and secondary hypertension (20 sources) Hypertensive chronic kidney disease with stage 1 through stage 4 chronic kidney disease, or unspecified chronic kidney disease; Translations: [Chronic kidney disease stage 2] Onset: 02-17-20 Resolved : 03-14-20 23 03-14-2023 Chronic Maintenance chemotherapy; radiotherapy (20 sources) Patient encounter status; Translations: [Encounter for antineoplastic immunotherapy] 02-09-2021 Chronic Malaise and fatigue (2 sources) Physical deconditioning; Translations: [Other malaise] 04-24-2025 Episodic Melanomas of skin (20 sources) Malignant melanoma of upper arm; Translations: [Malignant melanoma] Onset: 08-21-2002-09-2021 Chronic Osteoarthritis (20 sources) Osteoarthritis of left knee joint; Translations: [Unilateral primary osteoarthritis, left knee] Onset: 10-24-2012-14-2023 Chronic Osteoporosis (1 source) Osteoporosis 01-16-2025 Chronic Other and ill-defined heart disease (1 source) Heart disease, unspecified; Translations: [HEART DISEASE UNSPECIFIED] Onset: 05-04-20 Chronic Other circulatory disease (1 source) H/O: hypertension; Translations: [History of hypertension] Episodic Other connective tissue disease (1 source) Presence of left artificial knee joint; Translations: [Presence of left artificial knee joint] Onset: 10-03-20 Chronic Other connective tissue disease (20 sources) History of total knee arthroplasty; Translations: [Presence of left artificial knee joint] Onset: 10-03-20 23 12-23-2023 Chronic Other connective tissue disease (1 source) H/O: arthritis; Translations: [History of arthritis] Episodic Other connective tissue disease (1 source) H/O: gout; Translations: [History of gout] Episodic Other connective tissue disease (1 source) History of osteoporosis; Translations: [History of osteoporosis] Episodic Other diseases of kidney and ureters (1 source) Hydronephrosis; Translations: [Unspecified hydronephrosis] Onset: 06-19-20 Episodic Other diseases of kidney and ureters (1 source) Hydroureteronephrosis 01-16-2025 Episodic Other diseases of kidney and ureters (1 source) Unspecified hydronephrosis; Translations: [Unspecified hydronephrosis] Onset: 06-11-20 Episodic Other endocrine disorders (12 sources) Other disorders of pituitary gland; Translations: [Other disorders of the pituitary and other syndromes of diencephalohypophyseal origin] Chronic Other gastrointestinal disorders (20 sources) Irritable bowel syndrome; Translations: [Irritable bowel syndrome without diarrhea] Onset: 02-04-20 17 08-05-2022 Chronic Other gastrointestinal disorders (1 source) Diarrhea; Translations: [Diarrhea, unspecified] 05-14-2025 Episodic Other liver diseases (20 sources) Fatty (change of) liver, not elsewhere classified; Translations: [Other chronic nonalcoholic liver disease] Onset: 02-17-2008-05-2022 Chronic Other lower respiratory disease (1 source) Radiologic infiltrate of lung ; Translations: [Other nonspecific abnormal finding of lung field] Onset: 03-10-2003-10-2025 Episodic Other lower respiratory disease (2 sources) Other forms of dyspnea; Translations: [Other forms of dyspnea] Onset: 05-17-20 Episodic Other non-traumatic joint disorders (3 sources) Pain in left knee; Translations: [Pain in joint, lower leg] 12-14-2023 Episodic Other non-traumatic joint disorders (3 sources) Stiffness of left knee; Translations: [Stiffness of left knee, not elsewhere classified] 12-14-2023 Episodic Other nutritional; endocrine; and metabolic disorders (20 sources) Metabolic syndrome X; Translations: [Metabolic syndrome X] Onset: 08-05-2008-05-2022 Chronic Other nutritional; endocrine; and metabolic disorders (20 sources) Morbid obesity; Translations: [Morbid (severe) obesity due to excess calories] Onset: 04-08-2008-05-2022 Chronic Other nutritional; endocrine; and metabolic disorders (2 sources) Severe obesity; Translations: [Class 3 severe obesity due to excess calories with serious comorbidity and body mass index (BMI) of 40.0 to 44.9 in adult ([facility])] 06-17-2025 Chronic Other nutritional; endocrine; and metabolic disorders (1 source) Body mass index (BMI) 40.0-44.9, adult; Translations: [Body mass index (BMI) 40.0-44.9, adult] Onset: 06-17-20 Chronic Other nutritional; endocrine; and metabolic disorders [...] conditions (not mental disorders or infectious disease) (8 sources) Raised cardiac enzyme or marker; Translations: [Other specified abnormal findings of blood chemistry] Onset: 06-07-20 24 03-05-2025 Episodic Other screening for suspected conditions (not mental disorders or infectious disease) (1 source) No current problems or disability Onset: 12-16-19 Other skin disorders (2 sources) Localized swelling of left foot; Translations: [Localized swelling, mass and lump, left lower limb] 05-03-2025 Episodic Other skin disorders (1 source) Localized swelling, mass and lump, left lower limb; Translations: [Localized swelling, mass and lump, left lower limb] Onset: 05-03-20 Episodic Pleurisy; pneumothorax; pulmonary collapse (1 source) Atelectasis; Translations: [Atelectasis] Onset: 03-10-20 25 03-10-2025 Episodic Residual codes; unclassified (4 sources) Obstructive sleep apnea syndrome; Translations: [Obstructive sleep apnea (adult) (pediatric)] Onset: 03-10-2003-10-2025 Chronic Residual codes; unclassified (5 sources) Hypersomnia; Translations: [Hypersomnia, unspecified] 04-24-2025 Chronic Residual codes; unclassified (3 sources) Daytime somnolence; Translations: [Other hypersomnia] 04-29-2025 Chronic Residual codes; unclassified (2 sources) Hypersomnia, unspecified; Translations: [Hypersomnia, unspecified] Onset: 04-24-20 Chronic Residual codes; unclassified (1 source) Other hypersomnia; Translations: [Other hypersomnia] Onset: 05-07-20 Chronic Residual codes; unclassified (1 source) Obstructive sleep apnea (adult) (pediatric); Translations: [Obstructive sleep apnea (adult) (pediatric)] Onset: 06-17-20 Chronic Residual codes; unclassified (1 source) Acquired absence of other specified parts of digestive tract; Translations: [Acquired absence of other specified parts of digestive tract] Onset: 04-24-20 Episodic Screening and history of mental health and substance abuse codes (3 sources) Patient encounter status; Translations: [Encounter for screening for depression] 03-20-2024 Episodic Septicemia (except in labor) (3 sources) Sepsis; Translations: [Sepsis, unspecified organism] Onset: 03-09-20 25 03-09-2025 Episodic Skin and subcutaneous tissue infections (1 source) Pilonidal cyst 01-16-2025 Episodic Spondylosis; intervertebral disc disorders; other back problems (20 sources) Degeneration of thoracic intervertebral disc; Translations: [Other intervertebral disc degeneration, thoracic region] Onset: 02-04-20 17 08-05-2022 Chronic Unclassified (1 source) Other intervertebral disc degeneration, lumbar region with discogenic back pain only; Translations: [Other intervertebral disc degeneration, lumbar region with discogenic back pain only] Onset: 07-17-20 Unclassified (1 source) Obesity, class 3; Translations: [Obesity, class 3] Onset: 06-17-20 Unclassified (1 source) Other post infection and related fatigue syndromes; Translations: [Other post infection and related fatigue syndromes] Onset: 05-03-20 Unclassified (1 source) Low back pain, unspecified; Translations: [Low back pain, unspecified] Onset: 08-16-20 Unclassified (1 source) sciatica right side Onset: 08-16-20 Past or Other Problems Problem Classification Problem Date Documented Da te Episodic/Chronic Biliary tract disease (15 sources) Acute cholecystitis; Translations: [Acute cholecystitis] Onset: 03-03-2025 03-10-2025 Episodic Complications of surgical procedures or medical care (20 sources) Dehiscence of surgical wound; Translations: [Disruption of external operation (surgical) wound, not elsewhere classified, initial encounter] Onset: 12-23-2023 12-23-2023 Episodic Fluid and electrolyte disorders (20 sources) Hypokalemia; Translations: [Hypokalemia] Onset: 02-03-2017 Resolved: 03-14-2023 03-14-2023 Episodic Immunizations and screening for infectious disease (2 sources) Needs influenza immunization; Translations: [Encounter for immunization] Onset: 08-16-2024 08-16-2024 Episodic Mood disorders (20 sources) Mood disorders Onset: 03-20-2024 Resolved: 07-17-2025 03-20-2024 Other aftercare (3 sources) 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; Translations: [CUSTODIAL CURRENT USE OF INSULIN] Onset: 08-05-2022 Episodic Other and ill-defined heart disease (20 sources) Diastolic dysfunction; Translations: [Other ill-defined heart diseases] Onset: 12-02-2021 Resolved: 12-23-2023 12-23-2023 Chronic Other endocrine disorders (20 sources) Pituitary gland enlarged; Translations: [Other disorders of pituitary gland] Onset: 12-30-2023 Resolved: 03-21-2025 03-23-2021 Chronic Other gastrointestinal disorders (4 sources) Diarrhea, unspecified; Translations: [DIARRHEA UNSPECIFIED] Onset: 08-11-2022 Episodic Other lower respiratory disease (4 sources) Dyspnea, unspecified; Translations: [DYSPNEA UNSPECIFIED] Onset: 04-29-2022 Episodic Other lower respiratory disease (20 sources) Dyspnea on exertion; Translations: [Other forms of dyspnea] Onset: 12-25-2021 Resolved: 12-23-2023 12-23-2023 Episodic Other non-traumatic joint disorders (20 sources) Pain in wrist; Translations: [Pain in unspecified wrist] Onset: 09-06-2022 Resolved: 04-15-2023 04-15-2023 Episodic Pancreatic disorders (not diabetes) (20 sources) Pancreatitis; Translations: [Acute pancreatitis without necrosis or infection, unspecified] Onset: 08-05-2022 Resolved: 09-06-2022 09-06-2022 Episodic Residual codes; unclassified (2 sources) Edema, unspecified; Translations: [Edema, unspecified] Onset: 01-03-2025 Episodic Skull and face fractures (20 sources) Fracture of orbital floor; Translations: [Fracture of orbital floor, unspecified side, initial encounter for closed fracture] Onset: 04-03-2019 Resolved: 08-10-2022 08-10-2022 Episodic Spondylosis; intervertebral disc disorders; other back problems (3 sources) Spasm of muscle of lower back; Translations: [Muscle spasm of back] Onset: 08-16-2024 08-20-2024 Episodic Unclassified (20 sources) Onset: 08-20-2024 Resolved: 05-14-2025 08-20-2024 Results Test Name Value Interpretation Reference Range Facility POCT Hemoglobin A1con 2024 HbA1c (Bld) [Mass fraction] 7 % 4 - 7 % [facility] Bacteria [Presence] in Urine sediment by Light microscopyOrdered By: Shavon Mustafa on 07-16-2025 Bacteria LM Ql (Urine sed) 1+ [HPF] High None Seen [facility] Basic Metabolic Panelon GFR/1.73 sq M.predicted MDRD (S/P/Bld) [Vol rate/Area] mL/min/{1.73_m2} Normal [facility] Comment on above: Performed By: #### P TT, CBC, PT, BMP #### [facility] [address] [place] [address] [place] Basophils [#/volume] in Bloo d by Automated countOrdered By: Shavon Mustafa on 07-16-2025 Basophils (Bld) [#/Vol] 0.1 10*3/uL Normal 0.0-0.2 [facility] Comment on above: Result Comment: PERF ORMED BY: [place] [address] PATHOLOGIST TIE HACKER MANN HOLLAND M.D. Performed By: #### P TT, CBC, PT, BMP #### [facility] [address] [place] [address] [place] Basophils/100 leukocytes in Blood by Automated countOrdered By: Shavon Mustafa on 07-16-2025 Basophils/100 WBC (Bld) 1.2 % Normal . [facility] Comment on above: Performed By: #### P TT, CBC, PT, BMP #### [facility] [address] [place] [address] [place] Bilirubin Test strip Ql (U)O rdered By: Shavon Mustafa on 07-16-2025 Bilirubin Ql (U) 1+ High Negative [facility] Calcium [Mass/volume] in Ser um or PlasmaOrdered By: Shavon Mustafa on 07-16-2025 Calcium [Mass/Vol] 8.4 mg/dL Low 8.6-10.3 [facility] Comment on above: Result Comment: PERF ORMED BY: [place] [address] PATHOLOGIST TIE HACKER MANN HOLLAND M.D. Performed By: #### P TT, CBC, PT, BMP #### [facility] [address] Carbon dioxide, total [Moles /volume] in Serum or PlasmaOrdered By: Shavon Mustafa on 07-16-2025 CO2 [Moles/Vol] 32.9 mmol/L High 21.0-31.0 [facility] Comment on above: Performed By: #### P TT, CBC, PT, BMP #### [place] [address] [place] Chloride [Moles/volume] in S marlena or PlasmaOrdered By: Shavon Mustafa on 07-16-2025 Chloride [Moles/Vol] 97 mmol/L Low 98-107 [facility] Comment on above: Performed By: #### P TT, CBC, PT, BMP #### [address] Color of Urine by AutoOrdere d By: Shavon Mustafa on 07-16-2025 Color (U) Yellow Normal Yellow [facility] Comment on above: Order Comment: Name Collection Type:: Clean-Voided Midstream Performed By: #### C UU, ADDONUAPLUS #### [address] Complete Blood Count Auto Di ffon 07-16-2025 Mean Corpuscular HGB Conc 32.6 g/dL Normal 32.0-35.0 [facility] Comment on above: Performed By: #### P TT, CBC, PT, BMP #### [place] [address] [place] NRBC% 0.1 /100{WBC} Normal 0-0.5 [facility] Comment on above: Performed By: #### P TT, CBC, PT, BMP #### [facility] [address] White Blood Count 8.5 [CFU]/mL Normal 3.8-11.6 [facility] Comment on above: Performed By: #### P TT, CBC, PT, BMP #### [facility] [address] [place] [address] [place] Creatinine [Mass/volume] in Serum or PlasmaOrdered By: Shavon Mustafa on 07-16-2025 Creatinine [Mass/Vol] 0.88 mg/dL Normal 0.60-1.20 [facility] Comment on above: Performed By: #### P TT, CBC, PT, BMP #### [place] [address] [place] Dipstick and Microscopicon 0 07-16-2025 Bacteria,Urine 1+ [HPF] Normal None Seen [facility] Comment on above: Order Comment: Name Collection Type:: Clean-Voided Midstream Result Comment: PERF ORMED BY: [place] [address] PATHOLOGIST TIE HACKER MANN HOLLAND M.D. Performed By: #### C UU, ADDONUAPLUS #### [place] [address] [place] Bilirubin,Urine 1+ Normal Negative [facility] Comment on above: Order Comment: Name Collection Type:: Clean-Voided Midstream Performed By: #### C UU, ADDONUAPLUS #### [place] [address] [place] Glucose Ql (U) Normal Normal Normal [facility] Comment on above: Order Comment: Name Collection Type:: Clean-Voided Midstream Performed By: #### C UU, ADDONUAPLUS #### [place] [address] [place] Nitrite,Urine Negative Normal Negative [facility] Comment on above: Order Comment: Name Collection Type:: Clean-Voided Midstream Performed By: #### C UU, ADDONUAPLUS #### [address] Occult Blood,Urine Negative Normal Negative [facility] Comment on above: Order Comment: Name Collection Type:: Clean-Voided Midstream Result Comment: PERF ORMED BY: [place] [address] PATHOLOGIST TIE HACKER MANN HOLLAND M.D. Performed By: #### C UU, ADDONUAPLUS #### [address] Othe Crystals,Urine Normal [facility] Comment on above: Order Comment: Name Collection Type:: Clean-Voided Midstream Result Comment: star ch crystals noted Performed By: #### C UU, ADDONUAPLUS #### [address] RBC LM.HPF (Urine sed) [#/Area] 0 /[HPF] Normal 0-4 [facility] Comment on above: Order Comment: Name Collection Type:: Clean-Voided Midstream Performed By: #### C UU, ADDONUAPLUS #### [address] Specificy [place],Urine 1.025 Normal 1.001-1.030 [facility] Comment on above: Order Comment: Name Collection Type:: Clean-Voided Midstream Performed By: #### C UU, ADDONUAPLUS #### [address] Squamous Epithelial Cell,Urine 10-19 Normal 0-2 [facility] Comment on above: Order Comment: Name Collection Type:: Clean-Voided Midstream Performed By: #### C UU, ADDONUAPLUS #### [address] Urobilinogen,Urine 2 mg/dL Normal Normal [facility] Comment on above: Order Comment: Name Collection Type:: Clean-Voided Midstream Performed By: #### C UU, ADDONUAPLUS #### [facility] [address] WBC LM.HPF (Urine sed) [#/Area] 0 /[HPF] Normal 0-4 [facility] Comment on above: Order Comment: Name Collection Type:: Clean-Voided Midstream Performed By: #### C UU, ADDONUAPLUS #### [address] Eosinophils [#/volume] in Bl ood by Automated countOrdered By: Shavon Mustafa on 07-16-2025 Eosinophils (Bld) [#/Vol] 0.1 10*3/uL Normal 0.0-0.45 [facility] Comment on above: Performed By: #### P TT, CBC, PT, BMP #### [place] [address] [place] Eosinophils/100 leukocytes i n Blood by Automated countOrdered By: Shavon Mustafa on 07-16-2025 Eosinophils/100 WBC (Bld) 1.2 % Normal . [facility] Comment on above: Performed By: #### P TT, CBC, PT, BMP #### [address] Epithelial cells.squamous [# /area] in Urine sediment by Microscopy high power fieldOrdered By: Shavon Mustafa on 07-16-2025 Epithelial cells.squamous LM.HPF (Urine sed) [#/Area] 10-19 [HPF] High 0-2 [facility] Erythrocyte distribution wid th [Ratio] by Automated countOrdered By: Shavon Mustafa on 07-16-2025 Erythrocyte distribution width (RBC) [Ratio] 16.4 % High 11.9-15.3 [facility] Comment on above: Performed By: #### P TT, CBC, PT, BMP #### [address] Erythrocytes [#/area] in Uri ne sediment by Microscopy high power fieldOrdered By: Shavon Mustafa on 07-16-2025 RBC LM.HPF (Urine sed) [#/Area] 0-1 [HPF] 0-4 [facility] Erythrocytes [#/volume] in B lood by Automated countOrdered By: Shavon Mustafa on 07-16-2025 RBC (Bld) [#/Vol] 4.60 10*6/uL Normal 3.60-5.00 [facility] Comment on above: Performed By: #### P TT, CBC, PT, BMP #### [facility] [address] Glomerular filtration rate [ Volume Rate/Area] in Serum, Plasma or Blood by CreatinineOrdered By: Shavon Mustafa on 07-16-2025 Glomerular filtration rate [Volume Rate/Area] in Serum, Plasma or Blood by Creatinine > 60.0 mL/Min [facility] Glucose [Mass/volume] in Ser um or PlasmaOrdered By: Shavon Mustafa on 07-16-2025 Glucose [Mass/Vol] 173 mg/dL High 70-100 [facility] Comment on above: ADA recommended refe rence rangeRandom Glucose Reference Range is dependent on time and content of last meal. Glucose of more than 200 mg/dL in a nonstressed, ambulatory subject supports the diagnosis of Diabetes Mellitus. Result Comment: [place] om Glucose Reference Range is dependent on time and content of last meal. Glucose of more than 200 mg/dL in a nonstressed, ambulatory subject supports the diagnosis of Diabetes Mellitus. ADA recommended reference range Performed By: #### P TT, CBC, PT, BMP #### [facility] [address] Hematocrit [Volume Fraction] of Blood by Automated countOrdered By: Shavon Mustafa on 07-16-2025 Hematocrit (Bld) [Volume fraction] 40.4 % Normal 34.0-46.4 [facility] Comment on above: Performed By: #### P TT, CBC, PT, BMP #### [facility] [address] [place] [address] [place] Hemoglobin [Mass/volume] in BloodOrdered By: Shavon Mustafa on 07-16-2025 Hemoglobin (Bld) [Mass/Vol] 13.2 g/dL Normal 11.8-15.4 [facility] Comment on above: Performed By: #### P TT, CBC, PT, BMP #### [facility] [address] [place] [address] [place] INR in Platelet poor plasma by Coagulation assayOrdered By: Shavon Mustafa on 07-16-2025 INR Coag (PPP) [Relative time] 1.1 {INR} Normal [facility] Comment on above: INR Therapeutic Rang e A) Pre- and Peroperative OAT started two weeks before surgery. NOT HIP SURGERY: 1.5 - 2.5 HIP SURGERY: 2 - 3B) Primary and secondary prevention of venous THROMBOSIS: 2 - 3C) Active venous thrombosis, pulmonary embolismand prevention of recurrent venous thrombosis: 2 - 3D) Prevention of arterial thromboembolismincluding patients with mechanical heart valves: 3 - 4.5 Result Comment: INR Therapeutic Range A) Pre- and Peroperative OAT started two weeks before surgery. NOT HIP SURGERY: 1.5 - 2.5 HIP SURGERY: 2 - 3 B) Primary and secondary prevention of venous THROMBOSIS: 2 - 3 C) Active venous thrombosis, pulmonary embolism and prevention of recurrent venous thrombosis: 2 - 3 D) Prevention of arterial thromboembolism including patients with mechanical heart valves: 3 - 4.5 Performed By: #### P TT, CBC, PT, BMP #### [facility] [address] [place] [address] [place] Ketones [Presence] in Urine by Test stripOrdered By: Shavon Mustafa on 07-16-2025 Ketones Ql (U) Trace Normal Negative [facility] Comment on above: Order Comment: Name Collection Type:: Clean-Voided Midstream Performed By: #### C UU, ADDONUAPLUS #### [facility] [address] [place] [address] [place] Leukocyte esterase [Presence ] in Urine by Test stripOrdered By: Shavon Mustafa on 07-16-2025 Leukocyte esterase Test strip Ql (U) 2+ Normal Negative [facility] Comment on above: Order Comment: Name Collection Type:: Clean-Voided Midstream Performed By: #### C UU, ADDONUAPLUS #### [place] [address] [place] Leukocytes [#/area] in Urine sediment by Microscopy high power fieldOrdered By: Shavon Mustafa on 09-09-2025 WBC LM.HPF (Urine sed) [#/Area] 0-1 [HPF] 0-4 [facility] Leukocytes [#/volume] correc jin for nucleated erythrocytes in Blood by Automated counOrdered By: Shavon Mustafa on 07-16-2025 WBC corrected for nucl RBC Auto (Bld) [#/Vol] 8.5 10*3/uL 3.8-11.6 [facility] Leukocytes [#/volume] in Blo od by Automated countOrdered By: Shavon Mustafa on 07-16-2025 WBC (Bld) [#/Vol] 8.5 10*3/uL Normal 3.8-11.6 [facility] Comment on above: Performed By: #### P TT, CBC, PT, BMP #### [facility] [address] [place] [address] Lymphocytes [#/volume] in Bl ood by Automated countOrdered By: Shavon Mustafa on 07-16-2025 Lymphocytes (Bld) [#/Vol] 1.7 10*3/uL Normal 1.00-4.8 [facility] Comment on above: Performed By: #### P TT, CBC, PT, BMP #### [facility] [address] [place] [address] Lymphocytes/100 leukocytes i n Blood by Automated countOrdered By: Shavon Mustafa on 07-16-2025 Lymphocytes/100 WBC (Bld) 20.2 % Normal . [facility] Comment on above: Performed By: #### P TT, CBC, PT, BMP #### [facility] [address] [place] [address] MCH [Entitic mass] by Automa jin countOrdered By: Shavon Mustafa on 07-16-2025 MCH (RBC) [Entitic mass] 28.6 pg Normal 24.7-34.3 [facility] Comment on above: Performed By: #### P TT, CBC, PT, BMP #### [facility] [address] [place] [address] MCHC Auto (RBC) [Mass/Vol]Or dered By: Shavon Mustafa on 07-16-2025 MCHC (RBC) [Mass/Vol] 32.6 g/dL 32.0-35.0 [facility] MCV [Entitic volume] by Auto mated countOrdered By: Shavon Mustafa on 07-16-2025 MCV (RBC) [Entitic vol] 87.8 fL Normal 80-100 [facility] Comment on above: Performed By: #### P TT, CBC, PT, BMP #### [facility] [address] [place] [address] [place] Monocytes [#/volume] in Bloo d by Automated countOrdered By: Shavon Mustafa on 07-16-2025 Monocytes (Bld) [#/Vol] 0.6 10*3/uL Normal 0.0-0.8 [facility] Comment on above: Performed By: #### P TT, CBC, PT, BMP #### [facility] [address] [place] [address] [place] Monocytes/100 leukocytes in Blood by Automated countOrdered By: Shavon Mustafa on 07-16-2025 Monocytes/100 WBC (Bld) 7.3 % Normal . [facility] Comment on above: Performed By: #### P TT, CBC, PT, BMP #### [place] [address] [place] Neutrophils [#/volume] in Bl ood by Automated countOrdered By: Shavon Mustafa on 07-16-2025 Neutrophils (Bld) [#/Vol] 6.0 10*3/uL Normal 1.8-7.7 [facility] Comment on above: Performed By: #### P TT, CBC, PT, BMP #### [facility] [address] [place] [address] [place] Neutrophils/100 leukocytes i n Blood by Automated countOrdered By: Shavon Mustafa on 07-16-2025 Neutrophils/100 WBC (Bld) 70.1 % Normal . [facility] Comment on above: Performed By: #### P TT, CBC, PT, BMP #### [place] [address] [place] Nitrite Test strip Ql (U)Ord ered By: Shavon Mustafa on 07-16-2025 Nitrite Ql (U) Negative Negative [facility] No Panel InformationOrdered By: Shavon Mustafa on 07-16-2025 Pharmacy Creatinine Clearance (Chem N/A [facility] Nucleated erythrocytes [Pres ence] in Blood by Automated countOrdered By: Shavon Mustafa on 07-16-2025 Nucleated RBC Auto Ql (Bld) 0.1 /100{WBC} 0-0.5 [facility] Partial Thromboplastin Timeo n 07-16-2025 aPTT Coag (Bld) [Time] 29.8 s Normal 25.1-36.5 [facility] Comment on above: Result Comment: A he matocrit value greater than 55% may lead to inaccurate results in coagulation testing. Patients having hematocrit values >55% require a special collection tube for coagulation studies. Please contact the laboratory at [phone] for redraw instructions. PERFORMED BY: [place] [address] PATHOLOGIST TIE HACKER MANN HOLLAND M.D. Performed By: #### P TT, CBC, PT, BMP ####[facility] [place] [address] [place] Platelet mean volume [Entiti c volume] in Blood by Automated countOrdered By: Shavon Mustafa on 07-16-2025 Platelet mean volume (Bld) [Entitic vol] 8.0 fL Normal 6.3-10.7 [facility] Comment on above: Performed By: #### P TT, CBC, PT, BMP #### [facility] [address] [place] [address] [place] Platelets [#/volume] in Bloo d by Automated countOrdered By: Shavon Mustafa on 07-16-2025 Platelets (Bld) [#/Vol] 216 10*3/uL Normal 150-450 [facility] Comment on above: Performed By: #### P TT, CBC, PT, BMP #### [facility] [address] [place] [address] [place] Potassium [Moles/volume] in Serum or PlasmaOrdered By: Shavon Mustafa on 07-16-2025 Potassium [Moles/Vol] 3.3 mmol/L Low 3.5-5.1 [facility] Comment on above: Performed By: #### P TT, CBC, PT, BMP #### [facility] [address] [place] [id number] [place] Protein [Mass/volume] in Uri ne by Test stripOrdered By: Shavon Mustafa on 07-16-2025 Protein (U) [Mass/Vol] 30 mg/dL Normal Negative [facility] Comment on above: Order Comment: Name Collection Type:: Clean-Voided Midstream Performed By: #### C UU, ADDONUAPLUS #### [facility] [address] [place] [id number] [facility] Prothrombin time (PT)Ordered By: Shavon Mustafa on 07-16-2025 PT Coag (PPP) [Time] 12.5 s Normal 9.0-12.9 [facility] Comment on above: A hematocrit value g reater than 55% may lead to inaccurate results in coagulation testing. Patients having hematocrit values >55% require a special collection tube for coagulation studies. Please contact the laboratory at [phone] for redraw instructions. Result Comment: A he matocrit value greater than 55% may lead to inaccurate results in coagulation testing. Patients having hematocrit values >55% require a special collection tube for coagulation studies. Please contact the laboratory at [phone] for redraw instructions. Performed By: #### P TT, CBC, PT, BMP #### [facility] [address] [place] [address] [facility] RBC Test strip (U) [#/Vol]Or dered By: Shavon Mustafa on 07-16-2025 RBC (U) [#/Vol] Negative Negative [facility] Serum or plasma anion gap de terminationOrdered By: Shavon Mustafa on 07-16-2025 Anion gap [Moles/Vol] 16.4 mmol/L High 6.0-15.0 [facility] Comment on above: Performed By: #### P TT, CBC, PT, BMP #### [facility] [address] [place] [id number] [place] Sodium [Moles/volume] in Ser um or PlasmaOrdered By: Shavon Mustafa on 07-16-2025 Sodium [Moles/Vol] 143 mmol/L Normal 136-145 [facility] Comment on above: Performed By: #### P TT, CBC, PT, BMP #### [address] Specific gravity Test strip (U) [Rel density]Ordered By: Shavon Mustafa on 07-16-2025 Specific gravity (U) [Rel density] 1.025 1.001-1.030 [facility] Unidentified crystals [Prese nce] in Urine sediment by Light microscopyOrdered By: Shavon Mustafa on 07-16-2025 Unidentified crystals LM Ql (Urine sed) See comment [facility] Comment on above: starch crystals note d Urea nitrogen [Mass/volume] in Serum or PlasmaOrdered By: Shavon Mustafa on 07-16-2025 Urea nitrogen [Mass/Vol] 21 mg/dL Normal 7-25 [facility] Comment on above: Performed By: #### P TT, CBC, PT, BMP #### [address] Urine Cultureon 07-16-2025 Bacteria identified Cx Nom (U) >100,000 colonies/ml mixed bacterial skin contaminants 1 Day PERFORMED BY: [place] [address] PATHOLOGIST TIE HACKER MANN HOLLAND M.D. Normal [facility] Comment on above: Performed By: #### C UURONYUAPLUS #### [address] Urine appearance determinati onOrdered By: Shavon Mustafa on 07-16-2025 Appearance (U) Slightly cloudy Critically abnormal Clear [facility] Comment on above: Order Comment: Name Collection Type:: Clean-Voided Midstream Performed By: #### C UUKYLEIGHONUAPLUS #### [address] Urine glucose measurement by automated test strip (mass/volume)Ordered By: Shavon Mustafa on 07-16-2025 Glucose Auto test strip (U) [Mass/Vol] Normal mg/dL Normal [facility] Urobilinogen Test strip (U) [Mass/Vol]Ordered By: Shavon Mustafa on 07-16-2025 Urobilinogen (U) [Mass/Vol] 2 mg/dL High Normal [facility] aPTT in Platelet poor plasma by Coagulation assayOrdered By: Shavon Mustafa on 07-16-2025 aPTT Coag (PPP) [Time] 29.8 s 25.1-36.5 [facility] Comment on above: A hematocrit value g reater than 55% may lead to inaccurate results in coagulation testing. Patients having hematocrit values >55% require a special collection tube for coagulation studies. Please contact the laboratory at [phone] for redraw instructions. pH of Urine by Test stripOrd ered By: Shavon Mustafa on 07-16-2025 pH (U) 6.0 [pH] Normal 5.0-9.0 [facility] Comment on above: Order Comment: Name Collection Type:: Clean-Voided Midstream Performed By: #### C UU, ADDONUAPLUS #### [facility] [address] Office Visiton 06-27-2025 Follow-up visit [id number] Renee Mcneal 1950 F Date Provider Department Center 06/27/2025 [facility] Family History Problem Relation Age of Onset Coronary artery disease Father Heart attack Father Family Status - Relation Status Age at Mother Father Sister Alive Level of Service:[id number] [place] OFFICE/OUTPATIENT ESTABLISHED MOD MDM 30 MIN Reason for Visit and Comments: Hypertension [418057] Congestive Heart Failure [127] Hyperlipidemia [182] Normal [facility] Reminderson 06-20-2025 Reminders Reminders From: Chaya Alicea To: JULIO Mustafa; Sent: 01/16/2025 10:10:51 EDT Show up: 03/18/2025 10:10:00 EDT Subject: GRACE @ [facility] Due Date/Time: 04/18/2025 10:10:00 EDT Reminder Message Pt to complete GRACE @ [facility] prior to appt in 3 mos. Order in encounter from 01/16/25 (dx: hydroureteronephrosis). Order faxed to [facility] central scheduling today. [facility] called patient 04/03 no answer I attempted to call patient today phone went to follow up on 06/19/25 spoke to patient she states that she has been sick and has not have a chance to schedule GRACE, will call [facility] this week to schedule something. Patient seen IO 06/19/25 Normal [facility] Urology Office/Clinic Noteon 06-19-2025 Urology Office/Clinic Note Urology Office/Clinic Note Chief Complaint fu HPI Staff Pt is a 74 year old female here for a 3 month follow up with GRACE done at [facility] previous DX: hydroureteronephrosis, history of kidney stones Patient denies any dysuria or gross hematuria. Denies any flank or abdomen pain. no symptoms History of Present Illness Tests reviewed: UA, GRACE I have reviewed the previous health record information and history for this patient from Dr. Mustafa. I have reviewed and verified the staff [...] HPI. Physical Exam Vitals & Measurements HR: 61(Peripheral) BP: 152/72 HT: 60 in HT: 153 cm WT: 215.612 lb WT: 97.8 kg BMI: 41.78 General Appearance: alert, no distress, well nourished, well developed adult. Assessment/Plan 74 yo female, originally referred by Dr. Rose Ohara for right hydroureteronephrosis, here for 3 mo f/u. Hx of removal of malignant melanoma ~4 yrs ago (no radiation). DMII. RONEN. On ASA, no other BTs. BBS 6 (9). UA shows trace leuks. Asx, likely contamination. 1. Hydroureteronephrosis (N13.30: Unspecified hydronephrosis) CT AP w con 12/13/23 [facility] - Unremarkable kidneys and bladder. Personal review: Minimal R hydro. 12/11/24 - BUN 21, Cre 0.96, eGFR >60 CT AP w con 12/11/24 [facility] - No enhancing renal mass renal mass. R hydroureteronephrosis wo obstructing stone or mass. Finding is nonspecific. Underlying UVJ stricture cannot be excluded. Minimal bladder distention. -Mild-mod on review, decompresses by bowel, distal 1/3 ureter GRACE 06/11/25 [facility] - Mild R sided hydro. No stone or lesion. Has had gallbladder removed in interim so cannot say if she has been having pain from kidney or gallbladder. Reviewed imaging with pt which shows continued mild R hydro. Explained risks of chronic kidney obstruction including loss of kidney function. It is recommended to proceed with cysto, diagnostic R ureteroscopy, possible stent placement to assess for etiology of hydro, including malignancy. It is possible that previous renal stone caused scarring/stricture. Pt wants to hold-off on procedure for 1-2 mos for now given life events and recent surgery. Will put pt on the schedule today so it is not booked in a couple mos. Pt agreeable. -Will schedule cysto, diagnostic R ureteroscopy, possible biopsy, possible ureteral dilation, stent placement. The procedural risks, benefits, details, and treatment alternatives have been discussed with the patient. These include bleeding, infection, inability to break or retrieve all of the stone, injury to the ureter (the tube which connects the kidney to the bladder), injury to the kidney scarring of the ureter, and need for repeat procedures, among others. Full informed consent has been obtained. Will order General anesthesia. 2. History of kidney stones (Z87.442: Personal history of urinary calculi) Shares she has had 2 stones, years apart. Has not had any episodes recently. [1] Current imaging is neg for stones. Thinks she passed stones on the right. -Dietary modifications Follow-up With When Contact Information Ramsey JUAREZ, Shavon Lin, URL, URO Additional Instructions: schedule cysto, diagnostic R ureteroscopy, possible stent placement Patient Education Hydronephrosis I, Vivien Jain, personally scribed for Dr. Mustafa on 06/19/2025 10:48:37. . Documentation recorded by the scribgordon, Vivien Jain, accurately reflects the services(s) I performed and decisions made by me. Authenticated by Dr. Mustafa on 06/19/2025 11:07:32. Problem List/Past Medical History Ongoing Arm fracture Arthritis Diabetes type 2 Gout History of kidney stones Hydroureteronephrosis Hypercholesteremia Hypertension Morbid obesity with BMI of 40.0-44.9, adult RONEN (obstructive sleep apnea) Osteoporosis Pilonidal cyst Historical No qualifying data [...] tab(s) Novolin N, See Instructions rosuvastatin 10 (more content not included)... Normal [facility] [place] Comment on above: Result Comment: Elec tronically Signed By: Shavon Mustafa MD\.br\Date and Time Signed: 06/19/25 11:07 EDT\.br\Electronically Co-Signed By: Vivien Jain\.br\Date and Time Co-Signed: 06/19/25 10:48 EDT US renal BIon 06-11-2025 US renal BI [facility] [place] [address] Ultrasound Report Signed Patient: Tosha Mcneal MR#: [id number] : 1950 Acct:[id number] Age/Sex: 74 / F ADM Date: 06/11/25 Loc: Room: Type: [facility] CLI Attending Dr: Shavon Mustafa MD Ordering Provider: Shavon Mustafa MD Date of Service: 06/11/25 US/US renal BI: N13.30,Z87.442 Copies to: Shavon Mustafa MD BILATERAL RENAL AND BLADDER ULTRASOUND CLINICAL HISTORY: Hydroureteronephrosis. COMPARISON: CT abdomen and pelvis 12/21/2024 FINDINGS: Estimation of renal size is approximately 12.5 cm on the right and 10.87 cm on the left. Mild right-sided hydronephrosis. No shadowing stone or mass. The urinary bladder is partially distended with a volume of 302.97 ml. No shadowing stone or focal lesion. No significant postvoid residual. US/US renal BI IMPRESSION: MILD RIGHT-SIDED HYDRONEPHROSIS. Impression dictated by: Miki Kruse Jr., D.OPablo 06/11/2025 1:21 PM Dictation Location: [place] [address] Tech: Cyndi Brown Transcribed By: [facility] 06/11/25 1321 Dictated By: Miki Kruse Jr, DO 06/11/25 1319 Signed By: 06/11/25 1321 Normal [facility] CBC WITH AUTO DIFFERENTIALon 05-03-2025 Band form neutrophils/100 WBC (Bld) 3 % Normal [facility] Comment on above: Result Comment: This is an appended report. These results have been appended to a previously preliminary verified report. Performed By: #### C BCA #### [facility] ([facility]) [address] [place] [address] VIR CELLAVISION BASOPHILS ABSOLUTE COUNT (10*3/UL) BY MANUAL COUNT 0.1 10*3/uL Normal 0.0-0.2 [facility] Comment on above: Result Comment: This is an appended report. These results have been appended to a previously preliminary verified report. Performed By: #### C BCA #### [facility] ([facility]) [address] [place] [address] VIR CELLAVISION BASOPHILS RELATIVE PERCENT BY MANUAL COUNT 1 % Normal [facility] Comment on above: Result Comment: This is an appended report. These results have been appended to a previously preliminary verified report. Performed By: #### C BCA #### [facility] ([facility]) [address] [place] [address] VIR CELLAVISION DIFFERENTIAL TYPE MANUAL DIFFERENTIAL Normal [facility] Comment on above: Result Comment: This is an appended report. These results have been appended to a previously preliminary verified report. Performed By: #### C BCA #### [facility] ([facility]) [address] [place] [address] VIR CELLAVISION EOSINOPHILS ABSOLUTE COUNT (10*3/UL) BY MANUAL COUNT 0.1 10*3/uL Normal 0.0-0.4 [facility] Comment on above: Result Comment: This is an appended report. These results have been appended to a previously preliminary verified report. Performed By: #### C BCA #### [facility] ([facility]) [address] [place] [address] VIR CELLAVISION EOSINOPHILS PERCENT BY MANUAL COUNT 1 % Normal [facility] Comment on above: Result Comment: This is an appended report. These results have been appended to a previously preliminary verified report. Performed By: #### C BCA #### [facility] ([facility]) [address] [place] [address] VIR CELLAVISION LYMPHOCYTES ABSOLUTE COUNT (10*3/UL) BY MANUAL COUNT 1.0 10*3/uL Normal 1.0-3.5 [facility] Comment on above: Result Comment: This is an appended report. These results have been appended to a previously preliminary verified report. Performed By: #### C BCA #### [facility] ([facility]) [address] [place] [address] VIR CELLAVISION LYMPHOCYTES RELATIVE PERCENT BY MANUAL COUNT 11 % Normal [facility] Comment on above: Result Comment: This is an appended report. These results have been appended to a previously preliminary verified report. Performed By: #### C BCA #### [facility] ([facility]) [address] [place] [address] VIR CELLAVISION MONOCYTES ABSOLUTE COUNT (10*3/UL) IN BLOOD BY MANUAL COUNT 0.6 10*3/uL Normal 0.0-0.9 [facility] Comment on above: Result Comment: This is an appended report. These results have been appended to a previously preliminary verified report. Performed By: #### C BCA #### [facility] ([facility]) [address] [place] [address] VIR CELLAVISION MONOCYTES RELATIVE PERCENT BY MANUAL COUNT 6 % Normal [facility] Comment on above: Result Comment: This is an appended report. These results have been appended to a previously preliminary verified report. Performed By: #### C BCA #### [facility] ([facility]) [address] [place] [address] VIR CELLAVISION NEUTROPHILS ABSOLUTE COUNT BY MANUAL COUNT 7.4 10*3/uL High 1.5-6.6 [facility] Comment on above: Result Comment: This is an appended report. These results have been appended to a previously preliminary verified report. Performed By: #### C BCA #### [facility] ([facility]) [address] [place] [address] VIR CELLAVISION NEUTROPHILS RELATIVE PERCENT BY MANUAL COUNT 78 % Normal [facility] Comment on above: Result Comment: This is an appended report. These results have been appended to a previously preliminary verified report. Performed By: #### C BCA #### [facility] ([facility]) [address] [place] [address] VIR CELLAVISION RBC MORPHOLOGY Normal Normal [facility] Comment on above: Result Comment: This is an appended report. These results have been appended to a previously preliminary verified report. Performed By: #### C BCA #### [facility] ([facility]) [address] [place] [address] VIR Erythrocyte distribution width (RBC) [Ratio] 16.6 % High 11.5-15 [facility] Comment on above: Performed By: #### C BCA #### [facility] ([facility]) [address] [place] [address] VIR Hematocrit (Bld) [Volume fraction] 35.3 % Normal 35-47 [facility] Comment on above: Performed By: #### C BCA #### [facility] ([facility]) [address] [place] [address] VIR Hemoglobin (Bld) [Mass/Vol] 11.4 g/dL Low 11.7-15.5 [facility] Comment on above: Performed By: #### C BCA #### [facility] ([facility]) [address] [place] [address] VIR MCH (RBC) [Entitic mass] 28.6 pg Normal 27-34 [facility] Comment on above: Performed By: #### C BCA #### [facility] ([facility]) [address] [place] [address] VIR MCHC (RBC) [Mass/Vol] 32.4 g/dL Normal 32-36 [facility] Comment on above: Performed By: #### C BCA #### [facility] ([facility]) [address] [place] [address] VIR MCV (RBC) [Entitic vol] 88 fL Normal 80-100 [facility] Comment on above: Performed By: #### C BCA #### [facility] ([facility]) [address] [place] [address] VIR Platelet mean volume (Bld) [Entitic vol] 7.5 fL Normal 7-12 [facility] Comment on above: Performed By: #### C BCA #### [facility] ([facility]) [address] [place] [address] VIR Platelets (Bld) [#/Vol] 275 10*3/uL Normal 150-450 [facility] Comment on above: Performed By: #### C BCA #### [facility] ([facility]) [address] [place] [address] VIR RBC COUNT 3.99 X10E12/L Normal 3.8-5.2 [facility] Comment on above: Performed By: #### C BCA #### [facility] ([facility]) [address] [place] [address] VIR WBC (Bld) [#/Vol] 9.2 10*3/uL Normal 4-11 [facility] Comment on above: Performed By: #### C BCA #### [facility] ([facility]) [address] [place] [address] VIR COMPREHENSIVE METABOLIC PANE Heladio 05-03-2025 Albumin [Mass/Vol] 3.7 g/dL Normal 3.2-5.3 [facility] Comment on above: Performed By: #### C MP #### [facility] ([facility]) [address] [place] [address] VIR ALP [Catalytic activity/Vol] 57 U/L Normal 39-130 [facility] Comment on above: Performed By: #### C MP #### [facility] ([facility]) [address] [place] [address] VIR ALT [Catalytic activity/Vol] 10 U/L Normal <=31 [facility] Comment on above: Performed By: #### C MP #### [facility] ([facility]) [address] [place] [address] VIR Anion gap [Moles/Vol] 10 mmol/L Normal 5-15 [facility] Comment on above: Performed By: #### C MP #### [facility] ([facility]) [address] [place] [address] VIR AST [Catalytic activity/Vol] 12 U/L Normal <=41 [facility] Comment on above: Performed By: #### C MP #### [facility] ([facility]) [address] [place] [address] VIR Bilirubin [Mass/Vol] 1.7 mg/dL High 0.3-1.[address] [facility] Comment on above: Performed By: #### C MP #### [facility] ([facility]) [address] [place] [address] VIR Calcium [Mass/Vol] 9.2 mg/dL Normal 8.5-10.5 [facility] Comment on above: Performed By: #### C MP #### [facility] ([facility]) [address] [place] [address] VIR Chloride [Moles/Vol] 99 mmol/L Normal 98-[address] [facility] Comment on above: Performed By: #### C MP #### [facility] ([facility]) [address] [place] [address] VIR CO2 [Moles/Vol] 30 mmol/L Normal 22-32 [facility] Comment on above: Performed By: #### C MP #### [facility] ([facility]) [address] [place] [address] VIR Creatinine [Mass/Vol] 0.79 mg/dL Normal 0.40-1.00 [facility] Comment on above: Result Comment: METH OD TRACEABLE TO IDMS STANDARD Performed By: #### C MP #### [facility] ([facility]) [address] [place] [address] VIR GFR/1.73 sq M.predicted among non-blacks MDRD (S/P/Bld) [Vol rate/Area] 78 mL/min/{1.73_m2} Normal >=60 [facility] Comment on above: Result Comment: Repo rted eGFR is based on the CKD-EPI 2020 equation that does not use a race coefficient. Performed By: #### C MP #### [facility] ([facility]) [address] [place] [address] VIR Glucose [Mass/Vol] 155 mg/dL High 65-99 [facility] Comment on above: Performed By: #### C MP #### [facility] ([facility]) [address] [place] [address] VIR Potassium [Moles/Vol] 3.5 mmol/L Normal 3.5-5.0 [facility] Comment on above: Performed By: #### C MP #### [facility] ([facility]) [address] [place] [address] VIR Protein [Mass/Vol] 7.2 g/dL Normal 6.0-8.0 [facility] Comment on above: Performed By: #### C MP #### [facility] ([facility]) [address] [place] [address] VIR Sodium [Moles/Vol] 139 mmol/L Normal 134-146 [facility] Comment on above: Performed By: #### C MP #### [facility] ([facility]) [address] [place] [address] VIR Urea nitrogen [Mass/Vol] 14 mg/dL Normal 5-27 [facility] Comment on above: Performed By: #### C MP #### [facility] ([facility]) [address] [place] [address] VIR Basic Metabolic Panelon 06-0 Anion gap [Moles/Vol] 12 mmol/L 9 - 16 mmol/L [facility] Calcium [Mass/Vol] 8.8 mg/dL 8.6 - 10. 4 mg/dL [facility] Chloride [Moles/Vol] 102 mmol/L 98 - 10 7 mmol/L [facility] CO2 [Moles/Vol] 25 mmol/L 20 - 31 mmol/L [facility] Creatinine [Mass/Vol] 0.8 mg/dL 0.6 - 0.9 mg/dL [facility] Est, Glom Filt Rate 77 - PINF [facility] Comment on above: These results are not intended for use [...] following therapy that affects renal tubular secretion. Glucose [Mass/Vol] 183 mg/dL High 74 - 99 mg/dL [facility] Interpretation and review of laboratory results Abnormal [facility] Potassium [Moles/Vol] 4.2 mmol/L 3.7 - 5.3 mmol/L [facility] Sodium [Moles/Vol] 139 mmol/L 136 - 145 mmol/L [facility] Urea nitrogen [Mass/Vol] 23 mg/dL 8 - 23 mg/dL [facility] Basic Metabolic Profon 04-13 Anion gap [Moles/Vol] 12 mmol/L Normal 9-16 [facility] Comment on above: Performed By: #### M G, CDP, IOCAL, GLYHGB, BMP ####[employer] [address] [place] [address] Lab Director: Jose Miguel Davis MD Calcium [Mass/Vol] 8.8 mg/dL Normal 8.6-10.4 [facility] Comment on above: Performed By: #### M G, CDP, IOCAL, GLYHGB, BMP ####[employer] [address] [place] [address] Lab Director: Jose Miguel Davis MD Chloride [Moles/Vol] 102 mmol/L Normal 98-107 [facility] Comment on above: Performed By: #### M G, CDP, IOCAL, GLYHGB, BMP ####[employer] [address] [place] [address] Lab Director: Jose Miguel Davis MD CO2 [Moles/Vol] 25 mmol/L Normal 20-31 [facility] Comment on above: Performed By: #### M G, CDP, IOCAL, GLYHGB, BMP ####[employer] [address] [place], [place] [address])[phone] Director: Jose Miguel Davis MD Creatinine [Mass/Vol] 0.8 mg/dL Normal 0.6-0.9 [facility] Comment on above: Performed By: #### M G, CDP, IOCAL, GLYHGB, BMP ####[employer] [place] [address] Lab Director: Jsoe Miguel Davis MD GFR/1.73 sq M.predicted among non-blacks MDRD (S/P/Bld) [Vol rate/Area] 77 mL/min/{1.73_m2} Normal >60 [facility] Comment on above: Result Comment: [...] affects renal tubular secretion. Performed By: #### M G, CDP, IOCAL, GLYHGB, BMP ####[address] [address] Lab Director: Jose Miguel Davis MD Glucose [Mass/Vol] 183 mg/dL High 74-99 [facility] Comment on above: Performed By: #### M G, CDP, IOCAL, GLYHGB, BMP ####[address] [address] Lab Director: Jose Miguel Davis MD Potassium [Moles/Vol] 4.2 mmol/L Normal 3.7-5.3 [facility] Comment on above: Performed By: #### M G, CDP, IOCAL, GLYHGB, BMP ####[facility] [address] [place] [address] Lab Director: Jose Miguel Davis MD Sodium [Moles/Vol] 139 mmol/L Normal 136-145 [facility] Comment on above: Performed By: #### M G, CDP, IOCAL, GLYHGB, BMP ####[facility] [address] [place], [place] [id number])[phone] Director: Jose Miguel Davis MD Urea nitrogen [Mass/Vol] 23 mg/dL Normal 8-23 [facility] Comment on above: Performed By: #### M G, CDP, IOCAL, GLYHGB, BMP ####[facility] [address] [place] [address] lab Director: Jose Miguel Davis MD CBC with Auto Differentialon 04-13-2025 Basophils (Bld) [#/Vol] 0.04 10*3/uL [facility] Basophils/100 WBC (Bld) 1 % 0 - 2 % [facility] Eosinophils (Bld) [#/Vol] 0.22 10*3/uL [facility] Eosinophils/100 WBC (Bld) 3 % 1 - 4 % [facility] Erythrocyte distribution width (RBC) [Ratio] 16.2 % High 11.8 - 14.4 % [facility] Hematocrit (Bld) [Volume fraction] 35.2 % Low 36.3 - 47.1 % [facility] Hemoglobin (Bld) [Mass/Vol] 10.7 g/dL Low 11.9 - 15.1 g/dL [facility] Immature granulocytes (Bld) [#/Vol] [facility] Immature granulocytes/100 WBC (Bld) 0 % 0 [facility] Interpretation and review of laboratory results Abnormal [facility] Lymphocytes/100 WBC (Bld) 19 % Low 24 - 43 % [facility] Lymphocytes/100 WBC (Bld) 1.37 % [facility] MCH (RBC) [Entitic mass] 28.5 pg 25.2 - 33.5 pg [facility] MCHC (RBC) [Mass/Vol] 30.4 g/dL 28.4 - 34.8 g/dL [facility] MCV (RBC) [Entitic vol] 93.9 fL 82.6 - 102.9 fL [facility] Monocytes/100 WBC (Bld) 8 % 3 - 12 % [facility] Monocytes/100 WBC (Bld) 0.56 % [facility] Neutrophils/100 WBC (Bld) 69 % High 36 - 65 % [facility] Nucleated RBC/100 WBC (Bld) [Ratio] 0 % 0.0 per 100 WBC [facility] Platelet mean volume (Bld) [Entitic vol] 9.6 fL 8.1 - 13.5 fL [facility] Platelets (Bld) [#/Vol] 163 10*3/uL [facility] RBC (Bld) [#/Vol] 3.75 10*6/uL Low 3.95 - 5.1 1 m/uL [facility] RBC (Bld) [#/Vol] ANISOCYTOSIS PRESENT [facility] Segmented neutrophils/100 WBC (Bld) 4.88 % [facility] WBC other (Bld) [#/Vol] 7.1 [facility] CBC with Diffon 04-13-2025 Abs. Basophil 0.04 k/uL Normal 0.00-0.20 [facility] Comment on above: Performed By: #### M Jailene, CDP, IOCAL, GLYHGB, BMP ####[facility] [address] [place], [place] [address])[phone] Director: Jose Miguel Davis MD Abs.Imm.Granulocyte <0.03 Normal 0.00-0.30 [facility] Comment on above: Performed By: #### M Jailene, CDP, IOCAL, GLYHGB, BMP ####[facility] [address] [place], [place] [address])[phone] Director: Jose Miguel Davis MD Abs.Neutrophil (Seg) 4.88 k/uL Normal 1.50-8.10 [facility] Comment on above: Performed By: #### M G, CDP, IOCAL, GLYHGB, BMP ####[facility] [address] [place], [place] [address])[phone] Director: Jose Miguel Davis MD Basophils/100 WBC (Bld) 1 % Normal 0-2 [facility] Comment on above: Performed By: #### M G, CDP, IOCAL, GLYHGB, BMP ####[facility] [address] [place], [place] [address])[phone] Director: Jose Miguel Davis MD Eosinophils (Bld) [#/Vol] 0.22 10*3/uL Normal 0.00-0.44 [facility] Comment on above: Performed By: #### M G, CDP, IOCAL, GLYHGB, BMP ####[address] [id number])[phone] Director: Jose Miguel Davis MD Eosinophils/100 WBC (Bld) 3 % Normal 1-4 [facility] Comment on above: Performed By: #### M G, CDP, IOCAL, GLYHGB, BMP ####[place], [place] [address])[phone] Director: Jose Miguel Davis MD Erythrocyte distribution width (RBC) [Ratio] 16.2 % High 11.8-14.4 [facility] Comment on above: Performed By: #### M G, CDP, IOCAL, GLYHGB, BMP ####[facility] [address] [place] [address])[phone] Director: Jose Miguel Davis MD Hematocrit (Bld) [Volume fraction] 35.2 % Low 36.3-47.1 [facility] Comment on above: Performed By: #### M G, CDP, IOCAL, GLYHGB, BMP ####[address] [address])[phone] Director: Jose Miguel Davis MD Hemoglobin (Bld) [Mass/Vol] 10.7 g/dL Low 11.9-15.1 [facility] Comment on above: Performed By: #### M G, CDP, IOCAL, GLYHGB, BMP ####[facility] [address] [place] [address] [id number])[phone] Director: Jose Miguel Davis MD Immature granulocytes/100 WBC (Bld) 0 % Normal 0 [facility] Comment on above: Performed By: #### M G, CDP, IOCAL, GLYHGB, BMP ####[facility] [address] [place], [place] [id number])[phone] Director: Jose Miguel Davis MD Lymphocytes (Bld) [#/Vol] 1.37 10*3/uL Normal 1.10-3.70 [facility] Comment on above: Performed By: #### M Jailene, CDP, IOCAL, GLYHGB, BMP ####[facility] [address] [place], [place] [id number])[phone] Director: Jose Miguel Davis MD Lymphocytes/100 WBC (Bld) 19 % Low 24-43 [facility] Comment on above: Performed By: #### Richmond Burger, CDP, IOCAL, GLYHGB, BMP ####[facility] [address] [place], [place] [id number])[phone] Director: Jose Miguel Davis MD MCH (RBC) [Entitic mass] 28.5 pg Normal 25.2-33.5 [facility] Comment on above: Performed By: #### Richmond Burger, CDP, IOCAL, GLYHGB, BMP ####[facility] [address] [place], [place] [address])[phone] Director: Jose Miguel Davis MD MCHC (RBC) [Mass/Vol] 30.4 g/dL Normal 28.4-34.8 [facility] Comment on above: Performed By: #### M Jailene, CDP, IOCAL, GLYHGB, BMP ####[facility] [address] [place], [place] [phone] Director: Jose Miguel Davis MD MCV (RBC) [Entitic vol] 93.9 fL Normal 82.6-102.9 [facility] Comment on above: Performed By: #### M G, CDP, IOCAL, GLYHGB, BMP ####[facility] [address] [place], [place] [phone] Director: Jose Miguel Davis MD Monocytes (Bld) [#/Vol] 0.56 10*3/uL Normal 0.10-1.20 [facility] Comment on above: Performed By: #### M G, CDP, IOCAL, GLYHGB, BMP ####[facility] [address] [place] [address] Lab Director: Jose Miguel Davis MD Monocytes/100 WBC (Bld) 8 % Normal 3-12 [facility] Comment on above: Performed By: #### M G, CDP, IOCAL, GLYHGB, BMP ####[facility] [address]mogiioafnfi1221 [place] [address] Lab Director: Jose Miguel Davis MD Neutrophil (Seg) 69 % High 36-65 [facility] Comment on above: Performed By: #### M G, CDP, IOCAL, GLYHGB, BMP ####[facility] [address] [place] [address] Lab Director: Jose Miguel Davis MD NRBC Automated 0.0 per 100 WBC Normal 0.0 [facility] Comment on above: Performed By: #### M G, CDP, IOCAL, GLYHGB, BMP ####[facility] [address]mtvx[address]qeyufb20[address] [place] [address] Lab Director: Jose Miguel Davis MD Platelet mean volume (Bld) [Entitic vol] 9.6 fL Normal 8.1-13.5 [facility] Comment on above: Performed By: #### M G, CDP, IOCAL, GLYHGB, BMP ####[facility] [address] [place] [address] Lab Director: Jose Miguel Davis MD Platelets (Bld) [#/Vol] 163 10*3/uL Normal 138-453 [facility] Comment on above: Performed By: #### M G, CDP, IOCAL, GLYHGB, BMP ####[facility] Itgjeqzzxwkl1838 [place] [address] Lab Director: Jose Miguel Davis MD RBC (Bld) [#/Vol] 3.75 10*6/uL Low 3.95-5.11 [facility] Comment on above: Performed By: #### M Jaliene, CDP, IOCAL, GLYHGB, BMP ####[facility] R[address]ctsiq[address]po[address] [place], [place] [phone] Director: Jose Miguel Davis MD RBC morphology finding Nom (Bld) ANISOCYTOSIS PRESENT Normal [facility] Comment on above: Performed By: #### M Jailene, CDP, IOCAL, GLYHGB, BMP ####[facility] I[address]mxhpihhsa58[address] [place] [address] Lab Director: Jose Miguel Davis MD WBC (Bld) [#/Vol] 7.1 10*3/uL Normal 3.5-11.3 [facility] Comment on above: Performed By: #### M Jailene, CDP, IOCAL, GLYHGB, BMP ####[employer] Xvyxazvejiuf6688 [place], [place] [phone] Director: Jose Miguel Davis MD Calcium, Ionicon 04-13-2025 Calcium [Moles/Vol] 1.10 mmol/L Low 1.13-1.33 [facility] Comment on above: Performed By: #### M Jailene, CDP, IOCAL, GLYHGB, BMP ####[facility] Mhbuhyalxepm0[address] [place], [place] [phone] Director: Jose Miguel Davis MD Calcium, Ionizedon Calcium.ionized (Bld) [Moles/Vol] 1.10 mmol/L Low 1.13 - 1.33 mmol/L [facility] Interpretation and review of laboratory results Abnormal [facility] Glucose,Whole Bloodon 2024 Glucose [Mass/Vol] 223 mg/dL High 65-105 [facility] Glucose [Mass/Vol] 192 mg/dL High 65-105 [facility] Hemoglobin A1Con 04-13-2025 Average glucose Estimated from glycated hemoglobin (Bld) [Mass/Vol] 171 mg/dL [facility] [employer] Comment on above: The ADA and AACC rec ommend providing the estimated average glucose result to permit better patient understanding of their HBA1c result. HbA1c (Bld) [Mass fraction] 7.6 % High 4.0 - 6.0 % [facility] [employer] Interpretation and review of laboratory results Abnormal [facility] Glucose [Mass/Vol] 171 mg/dL Normal [facility] Comment on above: Result Comment: The ADA and AACC recommend providing the estimated average glucose result to permit better patient understanding of their HBA1c result. Performed By: #### M Jailene, CDP, IOCAL, GLYHGB, BMP ####[employer] [address] [place], [place] [phone] lab Director: Jose Miguel Davis MD HbA1c (Bld) [Mass fraction] 7.6 % High 4.0-6.0 [facility] Comment on above: Performed By: #### M Jailene, CDP, IOCAL, GLYHGB, BMP ####[employer] Kkbqwqkbhktp[address]152 [place], [place] [phone] lab Director: Jose Miguel Davis MD Magnesiumon 04-13-2025 Magnesium [Mass/Vol] 1.7 mg/dL 1.6 - 2 .4 mg/dL [facility] [employer] Magnesium [Mass/Vol] 1.7 mg/dL Normal 1.6-2.4 [facility] Comment on above: Performed By: #### M Jailene, CDP, IOCAL, GLYHGB, BMP ####[employer] [address] [place], [place] [phone] lab Director: Jose Miguel Davis MD No Panel Informationon 04-13 [facility] [employer] POC Glucose Fingerstickon Glucose [Mass/Vol] 223 mg/dL High 65 - 105 mg/dL [facility] [employer] Interpretation and review of laboratory results Abnormal [facility] [employer] Glucose [Mass/Vol] 192 mg/dL High 65 - 105 mg/dL [facility] Interpretation and review of laboratory results Abnormal [facility] Basic Metab w/rfx MGon 04-12 Anion gap [Moles/Vol] 13 mmol/L Normal 9-16 [facility] Comment on above: Performed By: #### B MPX ####[facility] [address] [place], [place] [phone] Director: Jose Miguel Davis MD Calcium [Mass/Vol] 8.4 mg/dL Low 8.6-10.4 [facility] Comment on above: Performed By: #### B MPX ####[facility] [address]rqmdtzydyoe8406 [place], [place] [phone] Director: Jose Miguel Davis MD Chloride [Moles/Vol] 98 mmol/L Normal 98-107 [facility] Comment on above: Performed By: #### B MPX ####[facility] Tabjcwlpolbw65[address] [place], [place] [phone] Director: Jose Miguel Davis MD CO2 [Moles/Vol] 26 mmol/L Normal 20-31 [facility] Comment on above: Performed By: #### B MPX ####[facility] Qdeleuvqmhch3608 [place], [place] [phone] Director: Jose Miguel Davis MD Creatinine [Mass/Vol] 1.2 mg/dL High 0.6-0.9 [facility] Comment on above: Performed By: #### B MPX ####[facility] Hvqoclgkkepj2752 [place], [place] [phone] Director: Jose Miguel Davis MD GFR/1.73 sq M.predicted among non-blacks MDRD (S/P/Bld) [Vol rate/Area] 47 mL/min/{1.73_m2} Low >60 [facility] Comment on above: Result Comment: [...] renal tubular secretion. Performed By: #### B MPX ####[facility] [address]vdzqtssg1844 [place] [address] Lab Director: Jose Miguel Davis MD Glucose [Mass/Vol] 265 mg/dL High 74-99 [facility] Comment on above: Performed By: #### B MPX ####[facility] [address] [place], [place] [address])[phone] Director: Jose Miguel Davis MD Potassium [Moles/Vol] 3.8 mmol/L Normal 3.7-5.3 [facility] Comment on above: Performed By: #### B MPX ####[facility] [address] [place] [address] [phone] Director: Jose Miguel Davis MD Sodium [Moles/Vol] 137 mmol/L Normal 136-145 [facility] Comment on above: Performed By: #### B MPX ####[facility] [address]zz[address]abvbguhl8[address] [place], [place] [phone] Director: Jose Miguel Davis MD Urea nitrogen [Mass/Vol] 27 mg/dL High 8-23 [facility] Comment on above: Performed By: #### B MPX ####[facility] [address] [place], [place] [phone] Director: Jose Miguel Davis MD Basic Metabolic Panelon 06-0 Anion gap [Moles/Vol] 13 mmol/L 9 - 16 mmol/L [facility] Calcium [Mass/Vol] 8.5 mg/dL Low 8.6 - 10. 4 mg/dL [facility] Chloride [Moles/Vol] 97 mmol/L Low 98 - 10 7 mmol/L [facility] CO2 [Moles/Vol] 24 mmol/L 20 - 31 mmol/L [facility] Creatinine [Mass/Vol] 1.1 mg/dL High 0.6 - 0.9 mg/dL [facility] Est, Glom Filt Rate 52 Low - PINF [facility] Comment on above: These results are not intended for use [...] following therapy that affects renal tubular secretion. Glucose [Mass/Vol] 196 mg/dL High 74 - 99 mg/dL [facility] Interpretation and review of laboratory results Abnormal [facility] Potassium [Moles/Vol] 3.9 mmol/L 3.7 - 5.3 mmol/L [facility] Sodium [Moles/Vol] 134 mmol/L Low 136 - 145 mmol/L [facility] Urea nitrogen [Mass/Vol] 27 mg/dL High 8 - 23 mg/dL [facility] Basic Metabolic Panel w/ Ref sam to MGon 04-12-2025 Anion gap [Moles/Vol] 13 mmol/L 9 - 16 mmol/L [facility] Calcium [Mass/Vol] 8.4 mg/dL Low 8.6 - 10. 4 mg/dL [facility] Chloride [Moles/Vol] 98 mmol/L 98 - 10 7 mmol/L [facility] CO2 [Moles/Vol] 26 mmol/L 20 - 31 mmol/L [facility] Creatinine [Mass/Vol] 1.2 mg/dL High 0.6 - 0.9 mg/dL [facility] Est, Glom Filt Rate 47 Low - PINF [facility] Comment on above: These results are not intended for use [...] following therapy that affects renal tubular secretion. Glucose [Mass/Vol] 265 mg/dL High 74 - 99 mg/dL [facility] Interpretation and review of laboratory results Abnormal [facility] Potassium [Moles/Vol] 3.8 mmol/L 3.7 - 5.3 mmol/L [facility] Sodium [Moles/Vol] 137 mmol/L 136 - 145 mmol/L [facility] Urea nitrogen [Mass/Vol] 27 mg/dL High 8 - 23 mg/dL [facility] Basic Metabolic Profon 04-12 Anion gap [Moles/Vol] 13 mmol/L Normal 9-16 [facility] Comment on above: Performed By: #### CATHERINE Anderson IOCAL, CDP ####[facility] Hospital[facility]ineng Energy [address]ttdezdmetn[address]25 [place] [address] Lab Director: Jose Miguel Davis MD Calcium [Mass/Vol] 8.5 mg/dL Low 8.6-10.4 [facility] Comment on above: Performed By: #### CATHERINE Anderson, IOCAL, CDP ####[facility] [address] [place] [address] Lab Director: Jose Miguel Davis MD Chloride [Moles/Vol] 97 mmol/L Low 98-107 [facility] Comment on above: Performed By: #### CATHERINE Anderson, IOCAL, CDP ####[employer] [address] [place] [address] Lab Director: Jose Miguel Davis MD CO2 [Moles/Vol] 24 mmol/L Normal 20-31 [facility] Comment on above: Performed By: #### CATHERINE Anderson, IOCAL, CDP ####[employer] [address]tb[address]hvyonzx60[address] [place] [address] Lab Director: Jose Miguel Davis MD Creatinine [Mass/Vol] 1.1 mg/dL High 0.6-0.9 [facility] Comment on above: Performed By: #### CATHERINE Anderson IOCAL, CDP ####[facility] [address]ou35[address] [place] [address] Lab Director: Jose Miguel Davis MD GFR/1.73 sq M.predicted among non-blacks MDRD (S/P/Bld) [Vol rate/Area] 52 mL/min/{1.73_m2} Low >60 [facility] Comment on above: Result Comment: [...] affects renal tubular secretion. Performed By: #### CATHERINE Anderson IOCAL, CDP ####[facility] [address]cexxcs18[address] [place] [address] Lab Director: Jose Miguel Davis MD Glucose [Mass/Vol] 196 mg/dL High 74-99 [facility] Comment on above: Performed By: #### CATHERINE Anderson IOCAL, CDP ####[facility] [address]esgu[address]iev69[address] [place] [address] Lab Director: Jose Miguel Davis MD Potassium [Moles/Vol] 3.9 mmol/L Normal 3.7-5.3 [facility] Comment on above: Performed By: #### CATHERINE Anderson, IOCAL, CDP ####[facility] [address]qu[address] [place] [address] Lab Director: Jose Miguel Davis MD Sodium [Moles/Vol] 134 mmol/L Low 136-145 [facility] Comment on above: Performed By: #### CATHERINE Anderson, IOCAL, CDP ####[facility] Iqppsdisxxlw7631 [place] [address] Lab Director: Jose Miguel Davis MD Urea nitrogen [Mass/Vol] 27 mg/dL High 8-23 [facility] Comment on above: Performed By: #### M G, BMP, IOCAL, CDP ####[facility] X[address]mp[address]dezwlf1495 [place] [address] lab Director: Jose Miguel Davis MD CBC with Auto Differentialon 04-12-2025 Basophils (Bld) [#/Vol] [facility] Basophils/100 WBC (Bld) 0 % 0 - 2 % [facility] Eosinophils (Bld) [#/Vol] [facility] Eosinophils/100 WBC (Bld) 0 % Low 1 - 4 % [facility] Erythrocyte distribution width (RBC) [Ratio] 16.2 % High 11.8 - 14.4 % [facility] Hematocrit (Bld) [Volume fraction] 35.8 % Low 36.3 - 47.1 % [facility] Hemoglobin (Bld) [Mass/Vol] 10.9 g/dL Low 11.9 - 15.1 g/dL [facility] Immature granulocytes (Bld) [#/Vol] 0.04 10*3/uL [facility] Immature granulocytes/100 WBC (Bld) 0 % 0 [facility] Interpretation and review of laboratory results Abnormal [facility] Lymphocytes/100 WBC (Bld) 15 % Low 24 - 43 % [facility] Lymphocytes/100 WBC (Bld) 1.52 % [facility] MCH (RBC) [Entitic mass] 28.9 pg 25.2 - 33.5 pg [facility] MCHC (RBC) [Mass/Vol] 30.4 g/dL 28.4 - 34.8 g/dL [facility] MCV (RBC) [Entitic vol] 95 fL 82.6 - 102.9 fL [facility] Monocytes/100 WBC (Bld) 7 % 3 - 12 % [facility] Monocytes/100 WBC (Bld) 0.7 % [facility] Neutrophils/100 WBC (Bld) 78 % High 36 - 65 % [facility] Nucleated RBC/100 WBC (Bld) [Ratio] 0 % 0.0 per 100 WBC [facility] Platelet mean volume (Bld) [Entitic vol] 9.7 fL 8.1 - 13.5 fL [facility] Platelets (Bld) [#/Vol] 177 10*3/uL [facility] RBC (Bld) [#/Vol] 3.77 10*6/uL Low 3.95 - 5.1 1 m/uL [facility] RBC (Bld) [#/Vol] ANISOCYTOSIS PRESENT [facility] Segmented neutrophils/100 WBC (Bld) 7.67 % [facility] WBC other (Bld) [#/Vol] 10 [facility] CBC with Diffon 04-12-2025 Abs. Basophil <0.03 Normal 0.00-0.20 [facility] Comment on above: Performed By: #### CATHERINE Anderson, IOCAL, CDP ####[facility] [address] [place], [place] [address])[phone] Director: Jose Miguel Davis MD Abs. Eosinophil <0.03 Normal 0.00-0.44 [facility] Comment on above: Performed By: #### CATHERINE Anderson, IOCAL, CDP ####[facility] Hospital[facility] Znbsisgfxhln1363 [place], [place] [address])[phone] Director: Jose Miguel Davis MD Abs.Imm.Granulocyte 0.04 k/uL Normal 0.00-0.30 [facility] Comment on above: Performed By: #### CATHERINE Anderson, IOCAL, CDP ####[employer] T[address] [place], [place] [address])[phone] Director: Jose Miguel Davis MD Abs.Neutrophil (Seg) 7.67 k/uL Normal 1.50-8.10 [facility] Comment on above: Performed By: #### CATHERINE Anderson, IOCAL, CDP ####[employer] [address]ks[address] [place], [place] [address])[phone] Director: Jose Miguel Davis MD Basophils/100 WBC (Bld) 0 % Normal 0-2 [facility] Comment on above: Performed By: #### Richmond Burger, BMP, IOCAL, CDP ####[facility] W[address]yjkzsf49[address] [place], [place] [phone] Director: Jose Miguel Davis MD Eosinophils/100 WBC (Bld) 0 % Low 1-4 [facility] Comment on above: Performed By: #### Richmond Burger, BMP, IOCAL, CDP ####[facility] [address] [place] [address] [phone] Director: Jose Miguel Davis MD Erythrocyte distribution width (RBC) [Ratio] 16.2 % High 11.8-14.4 [facility] Comment on above: Performed By: #### Richmond Burger, CATHERINE, IOCAL, CDP ####[facility] [address] [place] [address] [phone])[phone] Director: Jose Miguel Davis MD Hematocrit (Bld) [Volume fraction] 35.8 % Low 36.3-47.1 [facility] Comment on above: Performed By: #### Richmond Burger, CATHERINE, IOCAL, CDP ####[facility] [address] [place] [address] [phone] Director: Jose Miguel Davis MD Hemoglobin (Bld) [Mass/Vol] 10.9 g/dL Low 11.9-15.1 [facility] Comment on above: Performed By: #### Richmond Burger, BMP, IOCAL, CDP ####[facility] Dymqjtfxgfww3809 [place], [place] [phone] Director: Jose Miguel Davis MD Immature granulocytes/100 WBC (Bld) 0 % Normal 0 [facility] Comment on above: Performed By: #### Richmond Burger, BMP, IOCAL, CDP ####[facility] Jzowggehnsfe3859 [place], [place] [phone] Director: Jose Miguel Davis MD Lymphocytes (Bld) [#/Vol] 1.52 10*3/uL Normal 1.10-3.70 [facility] Comment on above: Performed By: #### Richmond Burger, CATHERINE, IOCAL, CDP ####[facility] Ydqasbotdevm9446 [place] [address] Lab Director: Jose Miguel Davis MD Lymphocytes/100 WBC (Bld) 15 % Low 24-43 [facility] Comment on above: Performed By: #### Richmond Burger, BMP, IOCAL, CDP ####[facility] Rjmgmkrlekeo6811 [place], [place] [phone] Director: Jose Miguel Davis MD MCH (RBC) [Entitic mass] 28.9 pg Normal 25.2-33.5 [facility] Comment on above: Performed By: #### Richmond Burger, CATHERINE, IOCAL, CDP ####[facility] [address]jdbueplrkcn11[address] [place], [place] [address])[phone] Director: Jose Miguel Davis MD MCHC (RBC) [Mass/Vol] 30.4 g/dL Normal 28.4-34.8 [facility] Comment on above: Performed By: #### Richmond Burger, CATHERINE, IOCAL, CDP ####[facility] Kxikjfizbwql5372 [place], [place] [phone] Director: Jose Miguel Davis MD MCV (RBC) [Entitic vol] 95.0 fL Normal 82.6-102.9 [facility] Comment on above: Performed By: #### Richmond Burger, BMP, IOCAL, CDP ####[facility] Ugondvqklxqa5621 [place], [place] [phone] Director: Jose Miguel Davis MD Monocytes (Bld) [#/Vol] 0.70 10*3/uL Normal 0.10-1.20 [facility] Comment on above: Performed By: #### Richmond Burger, CATHERINE, IOCAL, CDP ####[facility] Fbuljeyijzbu0893 [place], [place] [phone] Director: Jose Miguel Davis MD Monocytes/100 WBC (Bld) 7 % Normal 3-12 [facility] Comment on above: Performed By: #### Richmond Burger, CATHERINE, IOCAL, CDP ####[facility] [address] [place] [address] Lab Director: Jose Miguel Davis MD Neutrophil (Seg) 78 % High 36-65 [facility] Comment on above: Performed By: #### Richmond Burger, CATHERINE, IOCAL, CDP ####[facility] Ftgmxcqvbzwo5440 [place] [address] Lab Director: Jose Miguel Davis MD NRBC Automated 0.0 per 100 WBC Normal 0.0 [facility] Comment on above: Performed By: #### Richmond Burger, CATHERINE, IOCAL, CDP ####[facility] [address] [place] [address] Lab Director: Jose Miguel Davis MD Platelet mean volume (Bld) [Entitic vol] 9.7 fL Normal 8.1-13.5 [facility] Comment on above: Performed By: #### Richmond Burger, CATHERINE, IOCAL, CDP ####[facility] [address] [place] [address] Lab Director: Jose Miguel Davis MD Platelets (Bld) [#/Vol] 177 10*3/uL Normal 138-453 [facility] Comment on above: Performed By: #### Richmond Burger, CATHERINE, IOCAL, CDP ####[facility] Oqmydybudegw3813 [place] [address] Lab Director: Jose Miguel Davis MD RBC (Bld) [#/Vol] 3.77 10*6/uL Low 3.95-5.11 [facility] Comment on above: Performed By: #### Richmond Burger, CATHERINE, IOCAL, CDP ####[facility] [address]ekcaff06[address] [place] [address] Lab Director: Jose Miguel Davis MD RBC morphology finding Nom (Bld) ANISOCYTOSIS PRESENT Normal [facility] Comment on above: Performed By: #### Richmond Burger, CATHERINE, IOCAL, CDP ####[employer] [address]qpgtfhg5297 [place] [address] Lab Director: Jose Miguel Davis MD WBC (Bld) [#/Vol] 10.0 10*3/uL Normal 3.5-11.3 [facility] Comment on above: Performed By: #### M CATHERINE Burger, IOCAL, CDP ####[employer] Tkwtijavzdxr3256 [place] [address] lab Director: Jose Miguel Davis MD Calcium, Ionicon 04-12-2025 Calcium [Moles/Vol] 1.10 mmol/L Low 1.13-1.33 [facility] Comment on above: Performed By: #### CATHERINE Anderson, IOCAL, CDP ####[employer] [address]otslxko9811 [place] [address] Lab Director: Jose Miguel Davis MD Calcium, Ionizedon Calcium.ionized (Bld) [Moles/Vol] 1.10 mmol/L Low 1.13 - 1.33 mmol/L [facility] Interpretation and review of laboratory results Abnormal [facility] Glucose,Whole Bloodon 2024 Glucose [Mass/Vol] 265 mg/dL High 65-105 [facility] Glucose [Mass/Vol] 226 mg/dL High 65-105 [facility] Glucose [Mass/Vol] 199 mg/dL High 65-105 [facility] Magnesiumon 04-12-2025 Magnesium [Mass/Vol] 1.8 mg/dL 1.6 - 2 .4 mg/dL [facility] Magnesium [Mass/Vol] 1.8 mg/dL Normal 1.6-2.4 [facility] Comment on above: Performed By: #### M Jailene, BMP, IOCAL, CDP ####[employer] [address]fttwfsx1425 [place] [address] Lab Director: Jose Miguel Davis MD No Panel Informationon 04-12 [facility] POC Glucose Fingerstickon Glucose [Mass/Vol] 265 mg/dL High 65 - 105 mg/dL [facility] Interpretation and review of laboratory results Abnormal [facility] Glucose [Mass/Vol] 226 mg/dL High 65 - 105 mg/dL [facility] Interpretation and review of laboratory results Abnormal [facility] Glucose [Mass/Vol] 199 mg/dL High 65 - 105 mg/dL [facility] Interpretation and review of laboratory results Abnormal [facility] Portable XR Chest AP single viewon 04-12-2025 1. Mild pulmonary ed tiffanie with small left pleural effusion. 2. Unchanged band like linear opacity in the right upper lobe, which may represent atelectasis or scarring. [facility] RIS CONSOLIDATED EXAMINATION: ONE XRAY VIEW OF THE CHEST 04/12/2025 11:01 am COMPARISON: Chest radiograph 03/10/2025 HISTORY: ORDERING SYSTEM PROVIDED HISTORY: low O2 sats TECHNOLOGIST PROVIDED HISTORY: low O2 sats Reason for Exam: uprt port chest FINDINGS: Mild pulmonary edema with small left pleural effusion. Unchanged band like linear opacity in the right upper lobe. No pneumothorax. Unchanged cardiomegaly. No acute osseous Luis [facility] RIS CONSOLIDATED Sasha Arellano MD - 04/12/2025 EXAMINATION: ONE XRAY VIEW OF THE CHEST 04/12/2025 11:01 am COMPARISON: Chest radiograph 03/10/2025 HISTORY: ORDERING SYSTEM PROVIDED HISTORY: low O2 sats TECHNOLOGIST PROVIDED HISTORY: low O2 sats Reason for Exam: uprt port chest FINDINGS: Mild pulmonary edema with small left pleural effusion. Unchanged band like linear opacity in the right upper lobe. No pneumothorax. Unchanged cardiomegaly. No acute osseous Luis IMPRESSION: 1. Mild pulmonary edema with small left pleural effusion. 2. Unchanged band like linear opacity in the right upper lobe, which may represent atelectasis or scarring. [facility] Radiology Study observation (narrative) [facility] Portable XR Chest AP single viewOrdered By: Sasha Arellano on 04-12-2025 [employer] Work Phone: SURGICAL PATHOLOGY REPORTon 04-12-2025 Surgical Pathology Report Path Number: [id number] -- Diagnosis -- GALLBLADDER, CHOLECYSTECTOMY: - CHRONIC CHOLECYSTITIS WITH CHOLELITHIASIS. Halima Longo Electronically Signed Out ag/04/12/2025 Clinical Information Pre-Op Diagnosis: CHOLECYSTITIS Operative Findings: GALLBLADDER AND CONTENTS Operation Performed: LAPAROSCOPIC ROBOTIC CHOLECYSTECTOMY, POSSIBLE OPEN se Source of Specimen A: GALLBLADDER AND CONTENTS Gross Description TOSHA MCNEAL GALLBLADDER AND CONTENTS Received in formalin is a 7.0 x 4.0 x 2.4 cm disrupted gallbladder. The serosa is red-green and ragged, while the adventitia is markedly roughened. There is a red, granular mucosa with a fibrotic wall thickness up to 1.3 cm. There is yellow discoloration in the wall of the fundus. Within the lumen and neck are multiple black, rough-surfaced choleliths ranging from 0.1 to 0.4 cm. No lesions or periductal lymph nodes are identified. [facility] [employer] sections 1c. Kimberly Margarita/se:04/11/2025 Microscopic Description Microscopic examination performed. Processing Lab: [address] [address] Interpretation Performed at [address] [address] SURGICAL PATHOLOGY CONSULTATION Patient Name: TOSHA MCNEAL [facility] Rec: [id number] [facility] ANATOMIC PATHOLOGY [address] [place] [address]. [place], [place] [address] [facility] X[facility] CHEST PORTABLEon 04-12-20 25 XR CHEST PORTABLE EXAMINATION: ONE XRAY VIEW OF THE CHEST 04/12/2025 11:01 am COMPARISON: Chest radiograph 03/10/2025 HISTORY: ORDERING SYSTEM PROVIDED HISTORY: low O2 sats TECHNOLOGIST PROVIDED HISTORY: low O2 sats Reason for Exam: uprt port chest FINDINGS: Mild pulmonary edema with small left pleural effusion. Unchanged band like linear opacity in the right upper lobe. No pneumothorax. Unchanged cardiomegaly. No acute osseous Luis IMPRESSION: 1. Mild pulmonary edema with small left pleural effusion. 2. Unchanged band like linear opacity in the right upper lobe, which may represent atelectasis or scarring. Interpreted by: Sasha Arellano MD Signed by: Sasha Arellano MD 04/12/25 Final result Normal [facility] Basic Metabolic Panelon 06- Anion gap [Moles/Vol] 14 mmol/L 9 - 16 mmol/L [facility] Calcium [Mass/Vol] 8.6 mg/dL 8.6 - 10. 4 mg/dL [facility] Chloride [Moles/Vol] 101 mmol/L 98 - 10 7 mmol/L [facility] CO2 [Moles/Vol] 25 mmol/L 20 - 31 mmol/L [facility] Creatinine [Mass/Vol] 0.9 mg/dL 0.6 - 0.9 mg/dL [facility] Est, Glom Filt Rate 67 - PINF [facility] Comment on above: These results are not intended for use [...] following therapy that affects renal tubular secretion. Glucose [Mass/Vol] 216 mg/dL High 74 - 99 mg/dL [facility] Potassium [Moles/Vol] 4.1 mmol/L 3.7 - 5.3 mmol/L [facility] Sodium [Moles/Vol] 140 mmol/L 136 - 145 mmol/L [facility] Urea nitrogen [Mass/Vol] 18 mg/dL 8 - 23 mg/dL [facility] Basic Metabolic Profon 04-11 Anion gap [Moles/Vol] 14 mmol/L Normal 9-16 [facility] Comment on above: Performed By: #### B MP, MG, CDP, IOCAL, LIVP ####[facility] [place] [id number] Lab Director: Jose Miguel Davis MD Calcium [Mass/Vol] 8.6 mg/dL Normal 8.6-10.4 [facility] Comment on above: Performed By: #### B MP, MG, CDP, IOCAL, LIVP ####[facility] [address] [place] [address] Lab Director: Jose Miguel Davis MD Chloride [Moles/Vol] 101 mmol/L Normal 98-107 [facility] Comment on above: Performed By: #### B MP, MG, CDP, IOCAL, LIVP ####[address] [address] Lab Director: Jose Miguel Davis MD CO2 [Moles/Vol] 25 mmol/L Normal 20-31 [facility] Comment on above: Performed By: #### B MP, MG, CDP, IOCAL, LIVP ####[address] [address] Lab Director: Jose Miguel Davis MD Creatinine [Mass/Vol] 0.9 mg/dL Normal 0.6-0.9 [facility] Comment on above: Performed By: #### B MP, MG, CDP, IOCAL, LIVP ####[address] [address] Lab Director: Jose Miguel Davis MD GFR/1.73 sq M.predicted among non-blacks MDRD (S/P/Bld) [Vol rate/Area] 67 mL/min/{1.73_m2} Normal >60 [facility] Comment on above: Result Comment: [...] renal tubular secretion. Performed By: #### B MP, MG, CDP, IOCAL, LIVP ####[facility] [address] [place] [address] Lab Director: Jose Miguel Davis MD Glucose [Mass/Vol] 216 mg/dL High 74-99 [facility] Comment on above: Performed By: #### B MP, MG, CDP, IOCAL, LIVP ####[facility] [address] [place] [address] Lab Director: Jose Miguel Davis MD Potassium [Moles/Vol] 4.1 mmol/L Normal 3.7-5.3 [facility] Comment on above: Performed By: #### B MP, MG, CDP, IOCAL, LIVP ####[facility] [address] [place] [address] Lab Director: Jose Miguel Davis MD Sodium [Moles/Vol] 140 mmol/L Normal 136-145 [facility] Comment on above: Performed By: #### B MP, MG, CDP, IOCAL, LIVP ####[facility] [address] [place] [address] Lab Director: Jose Miguel Davis MD Urea nitrogen [Mass/Vol] 18 mg/dL Normal 8-23 [facility] Comment on above: Performed By: #### B MP, MG, CDP, IOCAL, LIVP ####[facility] [address] [place] [address] Lab Director: Jose Miguel Davis MD CBC with Auto Differentialon 04-11-2025 Basophils (Bld) [#/Vol] [facility] Basophils/100 WBC (Bld) 0 % 0 - 2 % [facility] Eosinophils (Bld) [#/Vol] [facility] Eosinophils/100 WBC (Bld) 0 % Low 1 - 4 % [facility] Erythrocyte distribution width (RBC) [Ratio] 15.9 % High 11.8 - 14.4 % [facility] Hematocrit (Bld) [Volume fraction] 37.9 % 36.3 - 47.1 % [facility] Hemoglobin (Bld) [Mass/Vol] 11.8 g/dL Low 11.9 - 15.1 g/dL [facility] Immature granulocytes (Bld) [#/Vol] 0.05 10*3/uL [facility] Immature granulocytes/100 WBC (Bld) 0 % 0 [facility] Interpretation and review of laboratory results Abnormal [facility] Lymphocytes/100 WBC (Bld) 9 % Low 24 - 43 % [facility] Lymphocytes/100 WBC (Bld) 1.1 % [facility] MCH (RBC) [Entitic mass] 28.5 pg 25.2 - 33.5 pg [facility] MCHC (RBC) [Mass/Vol] 31.1 g/dL 28.4 - 34.8 g/dL [facility] MCV (RBC) [Entitic vol] 91.5 fL 82.6 - 102.9 fL [facility] Monocytes/100 WBC (Bld) 5 % 3 - 12 % [facility] Monocytes/100 WBC (Bld) 0.54 % [facility] Neutrophils/100 WBC (Bld) 86 % High 36 - 65 % [facility] Nucleated RBC/100 WBC (Bld) [Ratio] 0 % 0.0 per 100 WBC [facility] Platelet mean volume (Bld) [Entitic vol] 9.7 fL 8.1 - 13.5 fL [facility] Platelets (Bld) [#/Vol] 181 10*3/uL [facility] RBC (Bld) [#/Vol] 4.14 10*6/uL 3.95 - 5.1 1 m/uL [facility] RBC (Bld) [#/Vol] ANISOCYTOSIS PRESENT [facility] Segmented neutrophils/100 WBC (Bld) 9.96 % High [facility] WBC other (Bld) [#/Vol] 11.7 High [facility] CBC with Diffon 04-11-2025 Abs. Basophil <0.03 Normal 0.00-0.20 [facility] Comment on above: Performed By: #### B MP, MG, CDP, IOCAL, LIVP ####[address] [address])[phone] Director: Jose Miguel Davis MD Abs. Eosinophil <0.03 Normal 0.00-0.44 [facility] Comment on above: Performed By: #### B MP, MG, CDP, IOCAL, LIVP ####[address] [address])[phone] Director: Jose Miguel Davis MD Abs.Imm.Granulocyte 0.05 k/uL Normal 0.00-0.30 [facility] Comment on above: Performed By: #### B MP, MG, CDP, IOCAL, LIVP ####[place], [place] [address])[phone] Director: Jose Miguel Davis MD Abs.Neutrophil (Seg) 9.96 k/uL High 1.50-8.10 [facility] Comment on above: Performed By: #### B MP, MG, CDP, IOCAL, LIVP ####[address] [address])[phone] Director: Jose Miguel Davis MD Basophils/100 WBC (Bld) 0 % Normal 0-2 [facility] Comment on above: Performed By: #### B MP, MG, CDP, IOCAL, LIVP ####[address] [address])[phone] Director: Jose Miguel Davis MD Eosinophils/100 WBC (Bld) 0 % Low 1-4 [facility] Comment on above: Performed By: #### B MP, MG, CDP, IOCAL, LIVP ####[address] [address])[phone] Director: Jose Miguel Davis MD Erythrocyte distribution width (RBC) [Ratio] 15.9 % High 11.8-14.4 [facility] Comment on above: Performed By: #### B MP, MG, CDP, IOCAL, LIVP ####[facility] [address] [place] [address])[phone] Director: Jose Miguel Davis MD Hematocrit (Bld) [Volume fraction] 37.9 % Normal 36.3-47.1 [facility] Comment on above: Performed By: #### B MP, MG, CDP, IOCAL, LIVP ####[facility] [address] [place] [address])[phone] Director: Jose Miguel Dvais MD Hemoglobin (Bld) [Mass/Vol] 11.8 g/dL Low 11.9-15.1 [facility] Comment on above: Performed By: #### B MP, MG, CDP, IOCAL, LIVP ####[address] [address])[phone] Director: Jose Miguel Davis MD Immature granulocytes/100 WBC (Bld) 0 % Normal 0 [facility] Comment on above: Performed By: #### B MP, MG, CDP, IOCAL, LIVP ####[address] [address])[phone] Director: Jose Miguel Davis MD Lymphocytes (Bld) [#/Vol] 1.10 10*3/uL Normal 1.10-3.70 [facility] Comment on above: Performed By: #### B MP, MG, CDP, IOCAL, LIVP ####[facility] [address] [place] [address] [id number])[phone] Director: Jose Miguel Davis MD Lymphocytes/100 WBC (Bld) 9 % Low 24-43 [facility] Comment on above: Performed By: #### B MP, MG, CDP, IOCAL, LIVP ####[address] [phone] Director: Jose Miguel Davis MD MCH (RBC) [Entitic mass] 28.5 pg Normal 25.2-33.5 [facility] Comment on above: Performed By: #### B MP, MG, CDP, IOCAL, LIVP ####[facility] [address] [place], [place] [phone])[phone] Director: Jose Miguel Davis MD MCHC (RBC) [Mass/Vol] 31.1 g/dL Normal 28.4-34.8 [facility] Comment on above: Performed By: #### B MP, MG, CDP, IOCAL, LIVP ####[facility] [address] [place] [address] [id number])[phone] Director: Jose Miguel Davis MD MCV (RBC) [Entitic vol] 91.5 fL Normal 82.6-102.9 [facility] Comment on above: Performed By: #### B MP, MG, CDP, IOCAL, LIVP ####[facility] [address] [place] [address] [id number])[phone] Director: Jose Miguel Davis MD Monocytes (Bld) [#/Vol] 0.54 10*3/uL Normal 0.10-1.20 [facility] Comment on above: Performed By: #### B MP, MG, CDP, IOCAL, LIVP ####[address] [phone] Director: Jose Miguel Davis MD Monocytes/100 WBC (Bld) 5 % Normal 3-12 [facility] Comment on above: Performed By: #### B MP, MG, CDP, IOCAL, LIVP ####[address] [phone] Director: Jose Miguel Davis MD Neutrophil (Seg) 86 % High 36-65 [facility] Comment on above: Performed By: #### B MP, MG, CDP, IOCAL, LIVP ####[facility] [address] [place] [address] [id number])[phone] Director: Jose Miguel Davis MD NRBC Automated 0.0 per 100 WBC Normal 0.0 [facility] Comment on above: Performed By: #### B MP, MG, CDP, IOCAL, LIVP ####[address] [id number])[phone] Director: Jose Miguel Davis MD Platelet mean volume (Bld) [Entitic vol] 9.7 fL Normal 8.1-13.5 [facility] Comment on above: Performed By: #### B MP, MG, CDP, IOCAL, LIVP ####[place], [place] [address])[phone] Director: Jose Miguel Davis MD Platelets (Bld) [#/Vol] 181 10*3/uL Normal 138-453 [facility] Comment on above: Performed By: #### B MP, MG, CDP, IOCAL, LIVP ####[place], [place] [address])[phone] Director: Jose Miguel Davis MD RBC (Bld) [#/Vol] 4.14 10*6/uL Normal 3.95-5.11 [facility] Comment on above: Performed By: #### B MP, MG, CDP, IOCAL, LIVP ####[address] [address])[phone] Director: Jose Miguel Davis MD RBC morphology finding Nom (Bld) ANISOCYTOSIS PRESENT Normal [facility] Comment on above: Performed By: #### B MP, MG, CDP, IOCAL, LIVP ####[place], [place] [id number])[phone] Director: Jose Miguel Davis MD WBC (Bld) [#/Vol] 11.7 10*3/uL High 3.5-11.3 [facility] Comment on above: Performed By: #### B MP, MG, CDP, IOCAL, LIVP ####[facility] [address] [place] [address] Lab Director: Jose Miguel Davis MD Calcium, Ionicon 04-11-2025 Calcium [Moles/Vol] 1.06 mmol/L Low 1.13-1.33 [facility] Comment on above: Performed By: #### B MP, MG, CDP, IOCAL, LIVP ####[facility] [address] [place], [place] [id number] lab Director: Jose Miguel Davis MD Calcium, Ionizedon Calcium.ionized (Bld) [Moles/Vol] 1.06 mmol/L Low 1.13 - 1.33 mmol/L [facility] Interpretation and review of laboratory results Abnormal [facility] Glucose,Whole Bloodon 2024 Glucose [Mass/Vol] 302 mg/dL High 65-105 [facility] Hepatic Function Panelon Albumin [Mass/Vol] 3.4 g/dL Low 3.5 - 5.2 g/dL [facility] Albumin/Globulin [Mass ratio] 1.4 {ratio} 1.0 - 2.5 [facility] ALP [Catalytic activity/Vol] 59 U/L 35 - 104 U/L [facility] ALT [Catalytic activity/Vol] 35 U/L 10 - 35 U/L [facility] AST [Catalytic activity/Vol] 73 U/L High 10 - 35 U/L [facility] Bilirubin [Mass/Vol] 1 mg/dL 0.0 - 1 .2 mg/dL [facility] Bilirubin.direct [Mass/Vol] 0.4 mg/dL High 0.0 - 0.2 mg/dL [facility] Bilirubin.indirect [Mass/Vol] 0.6 mg/dL 0.0 - 1.0 mg/dL [facility] Globulin (S) [Mass/Vol] 2.5 g/dL [facility] Protein [Mass/Vol] 5.9 g/dL Low 6.6 - 8.7 g/dL [facility] Liver Profileon 04-11-2025 Albumin [Mass/Vol] 3.4 g/dL Low 3.5-5.2 [facility] Comment on above: Performed By: #### B MP, MG, CDP, IOCAL, LIVP ####[facility] [address] [place], [place] [phone])[phone] Director: Jose Miguel Davis MD Albumin/Glob Ratio 1.4 Normal 1.0-2.5 [facility] Comment on above: Performed By: #### B MP, MG, CDP, IOCAL, LIVP ####[facility] [address] [place], [place] [phone])[phone] Director: Jose Miguel Davis MD Alkaline Phos 59 U/L Normal 35-104 [facility] Comment on above: Performed By: #### B MP, MG, CDP, IOCAL, LIVP ####[facility] [address] [place] [address] Lab Director: Jose Miguel Davis MD ALT [Catalytic activity/Vol] 35 U/L Normal 10-35 [facility] Comment on above: Performed By: #### B MP, MG, CDP, IOCAL, LIVP ####[facility] [address] [place] [address] Lab Director: Jose Miguel Davis MD AST [Catalytic activity/Vol] 73 U/L High 10-35 [facility] Comment on above: Performed By: #### B MP, MG, CDP, IOCAL, LIVP ####[facility] [address] [place], [place] [phone])[phone] Director: Jose Miguel Davis MD Bilirubin [Mass/Vol] 1.0 mg/dL Normal 0.0-1.2 [facility] Comment on above: Performed By: #### B MP, MG, CDP, IOCAL, LIVP ####[facility] [address] [place] [address] lab Director: Jose Miguel Davis MD Bilirubin, Indirect 0.6 mg/dL Normal 0.0-1.0 [facility] Comment on above: Performed By: #### B MP, MG, CDP, IOCAL, LIVP ####[facility] [address] [place] [address] lab Director: Jose Miguel Davis MD Bilirubin.indirect [Mass/Vol] 0.4 mg/dL High 0.0-0.2 [facility] Comment on above: Performed By: #### B MP, MG, CDP, IOCAL, LIVP ####[facility] [address] [place] [address] Lab Director: Jose Miguel Davis MD Globulin (S) [Mass/Vol] 2.5 g/dL Normal [facility] Comment on above: Performed By: #### B MP, MG, CDP, IOCAL, LIVP ####[facility] [address] [place] [address] lab Director: Jose Miguel Davis MD Protein [Mass/Vol] 5.9 g/dL Low 6.6-8.7 [facility] Comment on above: Performed By: #### B MP, MG, CDP, IOCAL, LIVP ####[facility] [address] [place] [address] Lab Director: Jose Miguel Davis MD Magnesiumon 04-11-2025 Magnesium [Mass/Vol] 1.8 mg/dL 1.6 - 2 .4 mg/dL [facility] Magnesium [Mass/Vol] 1.8 mg/dL Normal 1.6-2.4 [facility] Comment on above: Performed By: #### B MP, MG, CDP, IOCAL, LIVP ####[facility] [address] [place] [address] Lab Director: Jose Miguel Davis MD No Panel Informationon 04-11 Interpretation and review of laboratory results Abnormal [facility] POC Glucose Fingerstickon Glucose [Mass/Vol] 302 mg/dL High 65 - 105 mg/dL [facility] Interpretation and review of laboratory results Abnormal [facility] Basic Metabolic Panelon Anion gap [Moles/Vol] 15 mmol/L 9 - 16 mmol/L [facility] Calcium [Mass/Vol] 8.3 mg/dL Low 8.6 - 10. 4 mg/dL [facility] Chloride [Moles/Vol] 102 mmol/L 98 - 10 7 mmol/L [facility] CO2 [Moles/Vol] 26 mmol/L 20 - 31 mmol/L [facility] Creatinine [Mass/Vol] 0.9 mg/dL 0.6 - 0.9 mg/dL [facility] Est, Glom Filt Rate 67 - PINF [facility] Comment on above: These results are not intended for use [...] following therapy that affects renal tubular secretion. Glucose [Mass/Vol] 219 mg/dL High 74 - 99 mg/dL [facility] Potassium [Moles/Vol] 4 mmol/L 3.7 - 5.3 mmol/L [facility] Comment on above: Specimen hemolysis h as exceeded the interference as defined by Ranjith. Value may be falsely increased. Suggest recollection if clinically indicated. Sodium [Moles/Vol] 143 mmol/L 136 - 145 mmol/L [facility] Urea nitrogen [Mass/Vol] 16 mg/dL 8 - 23 mg/dL [facility] Basic Metabolic Profon 04-10 Anion gap [Moles/Vol] 15 mmol/L Normal 9-16 [facility] Comment on above: Performed By: #### M G, BMP, CDP ####[employer] [place], [place] [id number])[phone] Director: Jose Miguel Davis MD Calcium [Mass/Vol] 8.3 mg/dL Low 8.6-10.4 [facility] Comment on above: Performed By: #### CATHERINE Anderson, CDP ####[facility] [address] [place], [place] [phone])[phone] Director: Jose Miguel Davis MD Chloride [Moles/Vol] 102 mmol/L Normal 98-107 [facility] Comment on above: Performed By: #### CATHERINE Anderson, CDP ####[facility] [address] [place], [place] [phone])[phone] Director: Jose Miguel Davis MD CO2 [Moles/Vol] 26 mmol/L Normal 20-31 [facility] Comment on above: Performed By: #### CATHERINE Anderson, CDP ####[facility] [address] [place] [address] [id number])[phone] Director: Jose Miguel Davis MD Creatinine [Mass/Vol] 0.9 mg/dL Normal 0.6-0.9 [facility] Comment on above: Performed By: #### CATHERINE Anderson, CDP ####[facility] [address] [place] [address] [id number])[phone] Director: Jose Miguel Davis MD GFR/1.73 sq M.predicted among non-blacks MDRD (S/P/Bld) [Vol rate/Area] 67 mL/min/{1.73_m2} Normal >60 [facility] Comment on above: Result Comment: [...] affects renal tubular secretion. Performed By: #### CATHERINE Anderson, CDP ####[address] [place] [address] Lab Director: Jose Miguel Davis MD Glucose [Mass/Vol] 219 mg/dL High 74-99 [facility] Comment on above: Performed By: #### CATHERINE Anderson, CDP ####[facility] [address] [place] [address] Lab Director: Jose Miguel Davis MD Potassium [Moles/Vol] 4.0 mmol/L Normal 3.7-5.3 [facility] Comment on above: Result Comment: Spec imen hemolysis has exceeded the interference as defined by Ranjith. Value may be falsely increased. Suggest recollection if clinically indicated. Performed By: #### CATHERINE Anderson, CDP ####[facility] [address] [place] [address] Lab Director: Jose Miguel Davis MD Sodium [Moles/Vol] 143 mmol/L Normal 136-145 [facility] Comment on above: Performed By: #### CATHERINE Anderson, CDP ####[facility] [address] [place] [address] Lab Director: Jose Miguel Davis MD Urea nitrogen [Mass/Vol] 16 mg/dL Normal 8-23 [facility] Comment on above: Performed By: #### CATHERINE Anderson, CDP ####[facility] [address] [place] [address] Lab Director: Jose Miguel Davis MD CBC with Auto Differentialon 04-10-2025 Basophils (Bld) [#/Vol] 0.05 10*3/uL [facility] Basophils/100 WBC (Bld) 1 % 0 - 2 % [facility] [employer] Eosinophils (Bld) [#/Vol] [facility] [employer] [facility] Eosinophils/100 WBC (Bld) 0 % Low 1 - 4 % [facility] [employer] [facility] Erythrocyte distribution width (RBC) [Ratio] 16.1 % High 11.8 - 14.4 % [facility] [employer] [facility] Hematocrit (Bld) [Volume fraction] 40.8 % 36.3 - 47.1 % [facility] Hemoglobin (Bld) [Mass/Vol] 13 g/dL 11.9 - 15.1 g/dL [facility] Immature granulocytes (Bld) [#/Vol] 0.05 10*3/uL [facility] Immature granulocytes/100 WBC (Bld) 1 % High 0 [facility] Interpretation and review of laboratory results Abnormal [facility] Lymphocytes/100 WBC (Bld) 13 % Low 24 - 43 % [facility] Lymphocytes/100 WBC (Bld) 1.24 % [facility] MCH (RBC) [Entitic mass] 29.2 pg 25.2 - 33.5 pg [facility] MCHC (RBC) [Mass/Vol] 31.9 g/dL 28.4 - 34.8 g/dL [facility] MCV (RBC) [Entitic vol] 91.7 fL 82.6 - 102.9 fL [facility] Monocytes/100 WBC (Bld) 2 % Low 3 - 12 % [facility] Monocytes/100 WBC (Bld) 0.2 % [facility] Neutrophils/100 WBC (Bld) 83 % High 36 - 65 % [facility] Nucleated RBC/100 WBC (Bld) [Ratio] 0 % 0.0 per 100 WBC [facility] Platelet mean volume (Bld) [Entitic vol] 9.2 fL 8.1 - 13.5 fL [facility] Platelets (Bld) [#/Vol] 195 10*3/uL [facility] RBC (Bld) [#/Vol] 4.45 10*6/uL 3.95 - 5.1 1 m/uL [facility] RBC (Bld) [#/Vol] ANISOCYTOSIS PRESENT [facility] Segmented neutrophils/100 WBC (Bld) 8.09 % [facility] WBC other (Bld) [#/Vol] 9.7 [facility] CBC with Diffon 04-10-2025 Abs. Basophil 0.05 k/uL Normal 0.00-0.20 [facility] Comment on above: Performed By: #### M CATHERINE Burger, CDP ####[facility] [address]yf[address] [place], [place] [address])[phone] Director: Jose Miguel Davis MD Abs. Eosinophil <0.03 Normal 0.00-0.44 [facility] Comment on above: Performed By: #### CATHERINE Anderson, CDP ####[facility] [address] [place] [address])[phone] Director: Jose Miguel Davis MD Abs.Imm.Granulocyte 0.05 k/uL Normal 0.00-0.30 [facility] Comment on above: Performed By: #### CATHERINE Anderson, CDP ####[facility] [address] [place] [address])[phone] Director: Jose Miguel Davis MD Abs.Neutrophil (Seg) 8.09 k/uL Normal 1.50-8.10 [facility] Comment on above: Performed By: #### CATHERINE Anderson, CDP ####[facility] [address] [place] [address])[phone] Director: Jose Miguel Davis MD Basophils/100 WBC (Bld) 1 % Normal 0-2 [facility] Comment on above: Performed By: #### CATHERINE Anderson, CDP ####[facility] [address] [place] [address])[phone] Director: Jose Miguel Davis MD Eosinophils/100 WBC (Bld) 0 % Low 1-4 [facility] Comment on above: Performed By: #### CATHERINE Anderson, CDP ####[facility] [address] [place], [place] [address])[phone] Director: Jose Miguel Davis MD Erythrocyte distribution width (RBC) [Ratio] 16.1 % High 11.8-14.4 [facility] Comment on above: Performed By: #### CATHERINE Anderson, CDP ####[facility] [address] [place] [address] [id number])[phone] Director: Jose Miguel Davis MD Hematocrit (Bld) [Volume fraction] 40.8 % Normal 36.3-47.1 [facility] Comment on above: Performed By: #### CATHERINE Anderson, CDP ####[facility] N[address]re[address]xcb[address]64 [place], [place] [id number])[phone] Director: Jose Miguel Davis MD Hemoglobin (Bld) [Mass/Vol] 13.0 g/dL Normal 11.9-15.1 [facility] Comment on above: Performed By: #### CATHERINE Anderson, CDP ####[facility] [address] [place], [place] [address])[phone] Director: Jose Miguel Davis MD Immature granulocytes/100 WBC (Bld) 1 % High 0 [facility] Comment on above: Performed By: #### CATHERINE Anderson, CDP ####[facility] [address] [place], [place] [address]68419)[phone] Director: Jose Miguel Davis MD Lymphocytes (Bld) [#/Vol] 1.24 10*3/uL Normal 1.10-3.70 [facility] Comment on above: Performed By: #### CATHERINE Anderson, CDP ####[facility] [address]14[address] [place], [place] [phone] Director: Jose Miguel Davis MD Lymphocytes/100 WBC (Bld) 13 % Low 24-43 [facility] Comment on above: Performed By: #### CATHEIRNE Anderson, CDP ####[facility] [address]jsautbst[address] [place], [place] [phone])[phone] Director: Jose Miguel Daivs MD MCH (RBC) [Entitic mass] 29.2 pg Normal 25.2-33.5 [facility] Comment on above: Performed By: #### CATHERINE Anderson, CDP ####[facility] P[address]ty[address]am[address] [place], [place] [id number])[phone] Director: Jose Miguel Davis MD MCHC (RBC) [Mass/Vol] 31.9 g/dL Normal 28.4-34.8 [facility] Comment on above: Performed By: #### CATHERINE Anderson, CDP ####[facility] L[address]apc59[address] [place], [place] [phone] Director: Jose Miguel Davis MD MCV (RBC) [Entitic vol] 91.7 fL Normal 82.6-102.9 [facility] Comment on above: Performed By: #### CATHERINE Anderson, CDP ####[facility] T[address]ok[address]24[address] [place], [place] [phone])[phone] Director: Jose Miguel Davis MD Monocytes (Bld) [#/Vol] 0.20 10*3/uL Normal 0.10-1.20 [facility] Comment on above: Performed By: #### CATHERINE Anderson, CDP ####[facility] [address] [place] [address] [id number])[phone] Director: Jose Miguel Davis MD Monocytes/100 WBC (Bld) 2 % Low 3-12 [facility] Comment on above: Performed By: #### CATHERINE Anderson, CDP ####[facility] Ejaml[address]fa[address] [place], [place] [id number])[phone] Director: Jose Miguel Davis MD Neutrophil (Seg) 83 % High 36-65 [facility] Comment on above: Performed By: #### CATHERINE Anderson, CDP ####[facility] [address] [place], [place] [phone])[phone] Director: Jose Miguel Davis MD NRBC Automated 0.0 per 100 WBC Normal 0.0 [facility] Comment on above: Performed By: #### CATHERINE Anderson, CDP ####[facility] Sujefrh[address]qvs[address] [place], [place] [id number])[phone] Director: Jose Miguel Daivs MD Platelet mean volume (Bld) [Entitic vol] 9.2 fL Normal 8.1-13.5 [facility] Comment on above: Performed By: #### CATHERINE Anderson, CDP ####[facility] Rmobbficxwnc3432 [place] [address] Lab Director: Jose Miguel Davis MD Platelets (Bld) [#/Vol] 195 10*3/uL Normal 138-453 [facility] Comment on above: Performed By: #### CATHERINE Anderson, CDP ####[facility] [address] [place] [address] Lab Director: Jose Miguel Davis MD RBC (Bld) [#/Vol] 4.45 10*6/uL Normal 3.95-5.11 [facility] Comment on above: Performed By: #### CATHERINE Anderson, CDP ####[address] [address] Lab Director: Jose Miguel Davis MD RBC morphology finding Nom (Bld) ANISOCYTOSIS PRESENT Normal [facility] Comment on above: Performed By: #### CATHERINE Anderson, CDP ####[address] [address] Lab Director: Jose Miguel Davis MD WBC (Bld) [#/Vol] 9.7 10*3/uL Normal 3.5-11.3 [facility] Comment on above: Performed By: #### CATHERINE Anderson, CDP ####[facility] [address] [place] [address] Lab Director: Jose Miguel Davis MD Calcium, Ionicon 04-10-2025 Calcium [Moles/Vol] 1.05 mmol/L Low 1.13-1.33 [facility] Comment on above: Performed By: #### I OCAL ####[facility] [address]re[address]76 [place] [address] Lab Director: Jose Miguel Davis MD Calcium, Ionizedon Calcium.ionized (Bld) [Moles/Vol] 1.05 mmol/L Low 1.13 - 1.33 mmol/L [facility] Interpretation and review of laboratory results Abnormal [facility] Glucose (POC)on 04-10-2025 Glucose [Mass/Vol] 150 mg/dL High 74-100 [facility] Glucose,Whole Bloodon 2024 Glucose [Mass/Vol] 199 mg/dL High 65-105 [facility] Glucose [Mass/Vol] 200 mg/dL High 65-105 [facility] Magnesiumon 04-10-2025 Magnesium [Mass/Vol] 1.1 mg/dL Low 1.6 - 2 .4 mg/dL [facility] Magnesium [Mass/Vol] 1.1 mg/dL Low 1.6-2.4 [facility] Comment on above: Performed By: #### M G, BMP, CDP ####[facility] [address] [place] [address] [facility] Director: Jose Miguel Davis MD No Panel Informationon 04-10 Interpretation and review of laboratory results Abnormal [facility] POC Glucose Fingerstickon Glucose [Mass/Vol] 199 mg/dL High 65 - 105 mg/dL [facility] Interpretation and review of laboratory results Abnormal [facility] Glucose [Mass/Vol] 200 mg/dL High 65 - 105 mg/dL [facility] Interpretation and review of laboratory results Abnormal [facility] POCT Glucoseon 04-10-2025 Glucose [Mass/Vol] 150 mg/dL High 74 - 100 mg/dL [facility] Interpretation and review of laboratory results Abnormal [facility] POTASSIUM (POC)on 04-10-2025 Potassium [Moles/Vol] 3.6 mmol/L 3.5 - 4.5 mmol/L [facility] PREVIOUS SPECIMENon 04-10-20 25 [facility] Potassium (POC)on 06-04-2025 Potassium [Moles/Vol] 3.6 mmol/L Normal 3.5-4.5 Janessa cy [facility] Surgical Pathology Reporton 04-10-2025 Surgical Pathology Report (NOTE) Path Number: [id number] -- Diagnosis -- GALLBLADDER, CHOLECYSTECTOMY: - CHRONIC CHOLECYSTITIS WITH CHOLELITHIASIS. Halima Longo Electronically Signed Out /04/12/2025 Clinical Information Pre-Op Diagnosis: CHOLECYSTITIS Operative Findings: GALLBLADDER AND CONTENTS Operation Performed: LAPAROSCOPIC ROBOTIC CHOLECYSTECTOMY, POSSIBLE OPEN se Source of Specimen A: GALLBLADDER AND CONTENTS Gross Description TOSHA MCNEAL GALLBLADDER AND CONTENTS Received in formalin is a 7.0 x 4.0 x 2.4 cm disrupted gallbladder. The serosa is red-green and ragged, while the adventitia is markedly roughened. There is a red, granular mucosa with a fibrotic wall thickness up to 1.3 cm. There is yellow discoloration in the wall of the fundus. Within the lumen and neck are multiple black, rough-surfaced choleliths ranging from 0.1 to 0.4 cm. No lesions or periductal lymph nodes are identified. [facility] sections 1c. tm Kimberly Avila/se:04/11/2025 Microscopic Description Microscopic examination performed. Processing Lab: [address] [phone] Interpretation Performed at [address] [phone] SURGICAL PATHOLOGY CONSULTATION Patient Name: TOSHA MCNEAL [facility] Rec: [id number] [facility] ANATOMIC PATHOLOGY [address] [place] [phone] Normal [facility] Office Visiton 03-26-2025 Follow-up visit [id number] Renee Mcneal 1950 F Date Provider Department Center 03/26/2025 Jenniffer-ALFRED [facility] Family History Problem Relation Age of Onset Coronary artery disease Father Heart attack Father Family Status - Relation Status Age at Mother Father Sister Alive Level of Service:73671 [place] OFFICE/OUTPATIENT ESTABLISHED MOD MDM 30 MIN Reason for Visit and Comments: Congestive Heart Failure [127] Hypertension [526404] Hyperlipidemia [182] Normal [facility] COMPREHENSIVE METABOLIC PANE Heladio 03-21-2025 Albumin [Mass/Vol] 4.1 g/dL Normal 3.2-5.3 [facility] Comment on above: Performed By: #### C MP #### [facility] ([facility]) [address] [place] [address] VIR ALP [Catalytic activity/Vol] 62 U/L Normal 39-130 [facility] Comment on above: Performed By: #### C MP #### [facility] ([facility]) [address] [place] [address] VIR ALT [Catalytic activity/Vol] 32 U/L High <=31 [facility] Comment on above: Performed By: #### C MP #### [facility] ([facility]) [address] [place] [address] VIR Anion gap [Moles/Vol] 17 mmol/L High 5-15 [facility] Comment on above: Performed By: #### C MP #### [facility] ([facility]) [address] [place] [address] VIR AST [Catalytic activity/Vol] 31 U/L Normal <=41 [facility] Comment on above: Performed By: #### C MP #### [facility] ([facility]) [address] [place] [address] VIR Bilirubin [Mass/Vol] 0.9 mg/dL Normal 0.3-1.[address] [facility] Comment on above: Performed By: #### C MP #### [facility] ([facility]) [address] [place] [address] VIR Calcium [Mass/Vol] 10.1 mg/dL Normal 8.5-10.5 [facility] Comment on above: Performed By: #### C MP #### [facility] ([facility]) [address] [place] [address] VIR Chloride [Moles/Vol] 98 mmol/L Normal 98-[address] [facility] Comment on above: Performed By: #### C MP #### [facility] ([facility]) [address] [place] [address] VIR CO2 [Moles/Vol] 28 mmol/L Normal 22-32 [facility] Comment on above: Performed By: #### C MP #### [facility] ([facility]) [address] [place] [address] VIR Creatinine [Mass/Vol] 0.98 mg/dL Normal 0.40-1.00 [facility] Comment on above: Result Comment: METH OD TRACEABLE TO IDMS STANDARD Performed By: #### C MP #### [facility] ([facility]) [address] [place] [address] VIR GFR/1.73 sq M.predicted among non-blacks MDRD (S/P/Bld) [Vol rate/Area] 60 mL/min/{1.73_m2} Normal >=60 [facility] Comment on above: Result Comment: Repo rted eGFR is based on the CKD-EPI 2020 equation that does not use a race coefficient. Performed By: #### C MP #### [facility] ([facility]) [address] [place] [address] VIR Glucose [Mass/Vol] 131 mg/dL High 65-99 [facility] Comment on above: Performed By: #### C MP #### [facility] ([facility]) [address] [place] [address] VIR Potassium [Moles/Vol] 3.9 mmol/L Normal 3.5-5.0 [facility] Comment on above: Performed By: #### C MP #### [facility] ([facility]) [address] [place] [address] VIR Protein [Mass/Vol] 7.0 g/dL Normal 6.0-8.0 [facility] Comment on above: Performed By: #### C MP #### [facility] ([facility]) [address] [place] [address] VIR Sodium [Moles/Vol] 143 mmol/L Normal 134-146 [facility] Comment on above: Performed By: #### C MP #### [facility] ([facility]) [address] [place] [address] VIR Urea nitrogen [Mass/Vol] 31 mg/dL High 5-27 [facility] Comment on above: Performed By: #### C MP #### [facility] ([facility]) [address] [place] [address] VIR Comprehensive metabolic pane heladio 03-21-2025 Albumin [Mass/Vol] 4.1 g/dL 3.2 - 5.3 g/dL [facility] ALP [Catalytic activity/Vol] 62 U/L 39 - 130 U/L [facility] ALT No additional P-5'-P [Catalytic activity/Vol] 32 U/L High NINF - 31 U/L [facility] Anion gap [Moles/Vol] 17 mmol/L High 5 - 15 mmol/L [facility] AST [Catalytic activity/Vol] 31 U/L NINF - 41 U/L [facility] Bilirubin [Mass/Vol] 0.9 mg/dL 0.3 - 1 .2 mg/dL [facility] Calcium [Mass/Vol] 10.1 mg/dL 8.5 - 10. 5 mg/dL [facility] Chloride [Moles/Vol] 98 mmol/L 98 - 10 9 mmol/L [facility] CO2 [Moles/Vol] 28 mmol/L 22 - 32 mmol/L [facility] Creatinine [Mass/Vol] 0.98 mg/dL 0.40 - 1.00 mg/dL [facility] Comment on above: METHOD TRACEABLE TO IDMS STANDARD EGFR Non-Race Dependent 60 - PINF [facility] Comment on above: Reported eGFR is bas ed on the CKD-EPI 2020 equation that does not use a race coefficient. Glucose [Mass/Vol] 131 mg/dL High 65 - 99 mg/dL [facility] Interpretation and review of laboratory results Abnormal [facility] Potassium [Moles/Vol] 3.9 mmol/L 3.5 - 5.0 mmol/L [facility] Protein [Mass/Vol] 7 g/dL 6.0 - 8.0 g/dL [facility] Sodium [Moles/Vol] 143 mmol/L 134 - 146 mmol/L [facility] Urea nitrogen [Mass/Vol] 31 mg/dL High 5 - 27 mg/dL [facility] HEMOGLOBIN A1Con 03-21-2025 Glucose [Mass/Vol] 206 mg/dL Normal [facility] Comment on above: Performed By: #### H A1C #### [facility] ([facility]) [address] [place] [address] VIR HbA1c (Bld) [Mass fraction] 8.8 % High 4.4-5.6 [facility] Comment on above: Result Comment: ADA Guidelines Result HgbA1c Normal : less than 5.7 % Prediabetes : 5.7 % to 6.4 % Diabetes : > 6.4 % Use with caution in patients with abnormal hemoglobin variants as the half-life of red blood cells and in vivo glycation rates are affected. Performed By: #### H A1C #### [facility] ([facility]) [address] [place] [address] VIR Hemoglobin A1con 03-21-2025 Average glucose Estimated from glycated hemoglobin (Bld) [Mass/Vol] 206 mg/dL [facility] HbA1c (Bld) [Mass fraction] 8.8 % High 4.4 - 5.6 % [facility] Comment on above: ADA Guidelines Result HgbA1c Normal : less than 5.7 % Prediabetes : 5.7 % to 6.4 % Diabetes : > 6.4 % Use with caution in patients with abnormal hemoglobin variants as the half-life of red blood cells and in vivo glycation rates are affected. Interpretation and review of laboratory results Abnormal [facility] CBC with Auto Differentialon 03-10-2025 Basophils (Bld) [#/Vol] 0.07 10*3/uL [facility] Basophils/100 WBC (Bld) 1 % 0 - 2 % [facility] Eosinophils (Bld) [#/Vol] 0.12 10*3/uL [facility] Eosinophils/100 WBC (Bld) 1 % 1 - 4 % [facility] Erythrocyte distribution width (RBC) [Ratio] 15.9 % High 11.8 - 14.4 % [facility] Hematocrit (Bld) [Volume fraction] 41.6 % 36.3 - 47.1 % [facility] Hemoglobin (Bld) [Mass/Vol] 12.6 g/dL 11.9 - 15.1 g/dL [facility] Immature granulocytes (Bld) [#/Vol] 0.25 10*3/uL [facility] Immature granulocytes/100 WBC (Bld) 2 % High 0 [facility] Interpretation and review of laboratory results Abnormal [facility] Lymphocytes/100 WBC (Bld) 13 % Low 24 - 43 % [facility] Lymphocytes/100 WBC (Bld) 1.37 % [facility] MCH (RBC) [Entitic mass] 28.1 pg 25.2 - 33.5 pg [facility] MCHC (RBC) [Mass/Vol] 30.3 g/dL 28.4 - 34.8 g/dL [facility] MCV (RBC) [Entitic vol] 92.7 fL 82.6 - 102.9 fL [facility] Monocytes/100 WBC (Bld) 6 % 3 - 12 % [facility] Monocytes/100 WBC (Bld) 0.63 % [facility] Neutrophils/100 WBC (Bld) 77 % High 36 - 65 % [facility] Nucleated RBC/100 WBC (Bld) [Ratio] 0 % 0.0 per 100 WBC [facility] Platelet mean volume (Bld) [Entitic vol] 10.2 fL 8.1 - 13.5 fL [facility] Platelets (Bld) [#/Vol] 238 10*3/uL [facility] RBC (Bld) [#/Vol] 4.49 10*6/uL 3.95 - 5.1 1 m/uL [facility] RBC (Bld) [#/Vol] ANISOCYTOSIS PRESENT [facility] Segmented neutrophils/100 WBC (Bld) 7.91 % [facility] WBC other (Bld) [#/Vol] 10.4 [facility] CBC with Diffon 03-10-2025 Abs. Basophil 0.07 k/uL Normal 0.00-0.20 [facility] Comment on above: Performed By: #### C P, MG, CDP ####[place], [place] [address])[phone] Director: Jose Miguel Davis MD Abs.Imm.Granulocyte 0.25 k/uL Normal 0.00-0.30 [facility] Comment on above: Performed By: #### C P, MG, CDP ####[facility] [address] [place], [place] [address])[phone] Director: Jose Miguel Davis MD Abs.Neutrophil (Seg) 7.91 k/uL Normal 1.50-8.10 [facility] Comment on above: Performed By: #### C P, MG, CDP ####[facility] [address] [place] [address])[phone] Director: Jose Miguel Davis MD Basophils/100 WBC (Bld) 1 % Normal 0-2 [facility] Comment on above: Performed By: #### C P, MG, CDP ####[facility] [address] [place], [place] [address])[phone] Director: Jose Miguel Davis MD Eosinophils (Bld) [#/Vol] 0.12 10*3/uL Normal 0.00-0.44 [facility] Comment on above: Performed By: #### C P, MG, CDP ####[facility] [address] [place], [place] [address])[phone] Director: Jose Miguel Davis MD Eosinophils/100 WBC (Bld) 1 % Normal 1-4 [facility] Comment on above: Performed By: #### C P, MG, CDP ####[facility] [address] [place], [place] [id number])[phone] Director: Jose Miguel Davis MD Erythrocyte distribution width (RBC) [Ratio] 15.9 % High 11.8-14.4 [facility] Comment on above: Performed By: #### C P, MG, CDP ####[facility] [address] [place], [place] [address])[phone] Director: Jose Miguel Davis MD Hematocrit (Bld) [Volume fraction] 41.6 % Normal 36.3-47.1 [facility] Comment on above: Performed By: #### C P, MG, CDP ####[facility] [address] [place] [address])[phone] Director: Jose Miguel Davis MD Hemoglobin (Bld) [Mass/Vol] 12.6 g/dL Normal 11.9-15.1 [facility] Comment on above: Performed By: #### C P, MG, CDP ####[facility] [address]xyzwqrpgf0360 [place], [place] [address])[phone] Director: Jose Miguel Davis MD Immature granulocytes/100 WBC (Bld) 2 % High 0 [facility] Comment on above: Performed By: #### C P, MG, CDP ####[facility] [address]icsu[address] [place], [place] [id number])[phone] Director: Jose Miguel Davis MD Lymphocytes (Bld) [#/Vol] 1.37 10*3/uL Normal 1.10-3.70 [facility] Comment on above: Performed By: #### C P, MG, CDP ####[facility] [address] [place], [place] [address])[phone] Director: Jose Miguel Davis MD Lymphocytes/100 WBC (Bld) 13 % Low 24-43 [facility] Comment on above: Performed By: #### C P, MG, CDP ####[facility] [address] [place], [place] [id number])[phone] Director: Jose Miguel Davis MD MCH (RBC) [Entitic mass] 28.1 pg Normal 25.2-33.5 [facility] Comment on above: Performed By: #### C P, MG, CDP ####[facility] [address] [place], [place] [id number])[phone] Director: Jose Miguel Davis MD MCHC (RBC) [Mass/Vol] 30.3 g/dL Normal 28.4-34.8 [facility] Comment on above: Performed By: #### C P, MG, CDP ####[facility] [address] [place] [address] [id number])[phone] Director: Jose Miguel Davis MD MCV (RBC) [Entitic vol] 92.7 fL Normal 82.6-102.9 [facility] Comment on above: Performed By: #### C P, MG, CDP ####[facility] [address]zv[address] [place], [place] [id number])[phone] Director: Jose Miguel Davis MD Monocytes (Bld) [#/Vol] 0.63 10*3/uL Normal 0.10-1.20 [facility] Comment on above: Performed By: #### C P, MG, CDP ####[facility] Tsfrsoimwkjr38[address] [place], [place] [id number])[phone] Director: Jose Miguel Davis MD Monocytes/100 WBC (Bld) 6 % Normal 3-12 [facility] Comment on above: Performed By: #### C P, MG, CDP ####[facility] Ncmdqzjvpafh0770 [place], [place] [id number])[phone] Director: Jose Miguel Davis MD Neutrophil (Seg) 77 % High 36-65 [facility] Comment on above: Performed By: #### C P, MG, CDP ####[facility] [address] [place], [place] [address])[phone] Director: Jose Miguel Davis MD NRBC Automated 0.0 per 100 WBC Normal 0.0 [facility] Comment on above: Performed By: #### C P, MG, CDP ####[place], [place] [address])[phone] Director: Jose Miguel Davis MD Platelet mean volume (Bld) [Entitic vol] 10.2 fL Normal 8.1-13.5 [facility] Comment on above: Performed By: #### C P, MG, CDP ####[place], [place] [address])[phone] Director: Jose Migule Davis MD Platelets (Bld) [#/Vol] 238 10*3/uL Normal 138-453 [facility] Comment on above: Performed By: #### C P, MG, CDP ####[place], [place] [address])[phone] Director: Jose Miguel Davis MD RBC (Bld) [#/Vol] 4.49 10*6/uL Normal 3.95-5.11 [facility] Comment on above: Performed By: #### C P, MG, CDP ####[place], [place] [address])[phone] Director: Jose Miguel Davis MD RBC morphology finding Nom (Bld) ANISOCYTOSIS PRESENT Normal [facility] Comment on above: Performed By: #### C P, MG, CDP ####[place], [place] [address])[phone] Director: Jose Miguel Davis MD WBC (Bld) [#/Vol] 10.4 10*3/uL Normal 3.5-11.3 [facility] Comment on above: Performed By: #### C P, MG, CDP ####[facility] [address] [place], [place] [id number])[phone] Director: Jose Miguel Davis MD Comp Metabolic Profon 2024 Albumin [Mass/Vol] 2.6 g/dL Low 3.5-5.2 [facility] Comment on above: Performed By: #### C P, MG, CDP ####[facility] Cxwkdkvmdelj8[address] [place], [place] [id number])[phone] Director: Jose Miguel Davis MD Albumin/Glob Ratio 0.9 Low 1.0-2.5 [facility] Comment on above: Performed By: #### C P, MG, CDP ####[facility] Qvrcbgvlinfd2456 [place], [place] [id number])[phone] Director: Jose Miguel Davis MD Alkaline Phos 70 U/L Normal 35-104 [facility] Comment on above: Performed By: #### C P, MG, CDP ####[facility] L[address]cutjjsnuc70[address] [place], [place] [id number])[phone] Director: Jose Miguel Davis MD ALT [Catalytic activity/Vol] 14 U/L Normal 10-35 [facility] Comment on above: Performed By: #### C P, MG, CDP ####[facility] Cxnmajjvdcxu3046 [place], [place] [id number])[phone] Director: Jose Miguel Davis MD Anion gap [Moles/Vol] 13 mmol/L Normal 9-16 [facility] Comment on above: Performed By: #### C P, MG, CDP ####[facility] [address] [place], [place] [id number])[phone] Director: Jose Miguel Davis MD AST [Catalytic activity/Vol] 20 U/L Normal 10-35 [facility] Comment on above: Performed By: #### C P, MG, CDP ####[facility] Zrwkfcdjsjbn[address] [place], [place] [id number] lab Director: Jose Miguel Davis MD Bilirubin [Mass/Vol] 0.7 mg/dL Normal 0.0-1.2 [facility] Comment on above: Performed By: #### C P, MG, CDP ####[facility] [address]af[address]vddv9643 [place] [address] Lab Director: Jose Miguel Davis MD Calcium [Mass/Vol] 8.0 mg/dL Low 8.6-10.4 [facility] Comment on above: Performed By: #### C P, MG, CDP ####[facility] [address]vvejzf1490 [place] [address] Lab Director: Jose Miguel Davis MD Chloride [Moles/Vol] 101 mmol/L Normal 98-107 [facility] Comment on above: Performed By: #### C P, MG, CDP ####[facility] [address] [place] [address])[phone] Director: Jose Miguel Davis MD CO2 [Moles/Vol] 25 mmol/L Normal 20-31 [facility] Comment on above: Performed By: #### C P, MG, CDP ####[facility] Eywrzexgvjoh0762 [place] [address] Lab Director: Jose Miguel Davis MD Creatinine [Mass/Vol] 0.7 mg/dL Normal 0.6-0.9 [facility] Comment on above: Performed By: #### C P, MG, CDP ####[facility] [address] [place] [address])[phone] Director: Jose Miguel Davis MD GFR/1.73 sq M.predicted among non-blacks MDRD (S/P/Bld) [Vol rate/Area] mL/min/{1.73_m2} Normal >60 [facility] Comment on above: Result Comment: [...] affects renal tubular secretion. Performed By: #### C P, MG, CDP ####[facility] [address]oktabem[address] [place], [place] [id number])[phone] Director: Jose Miguel Davis MD Glucose [Mass/Vol] 191 mg/dL High 74-99 [facility] Comment on above: Performed By: #### C P, MG, CDP ####[facility] [address] [place] [address] [id number])[phone] Director: Jose Miguel Davis MD Potassium [Moles/Vol] 3.2 mmol/L Low 3.7-5.3 [facility] Comment on above: Result Comment: Spec imen hemolysis has exceeded the interference as defined by Ranjith. Value may be falsely increased. Suggest recollection if clinically indicated. Performed By: #### C P, MG, CDP ####[facility] [address] [place] [address] [id number])[phone] Director: Jose Miguel Davis MD Protein [Mass/Vol] 5.4 g/dL Low 6.6-8.7 [facility] Comment on above: Performed By: #### C P, MG, CDP ####[facility] [address] [place] [address] [id number])[phone] Director: Jose Miguel Davis MD Sodium [Moles/Vol] 139 mmol/L Normal 136-145 [facility] Comment on above: Performed By: #### C P, MG, CDP ####[facility] Ozlitcnqdlyk04[address] [place], [place] [id number])[phone] Director: Jose Miguel Davis MD Urea nitrogen [Mass/Vol] 9 mg/dL Normal 8-23 [facility] Comment on above: Performed By: #### C P, MG, CDP ####[facility] [address]uf[address]qanb9222 [place] [address] Lab Director: Jose Miguel Davis MD Comprehensive Metabolic Pane heladio 03-10-2025 Albumin [Mass/Vol] 2.6 g/dL Low 3.5 - 5.2 g/dL [facility] Albumin/Globulin [Mass ratio] 0.9 {ratio} Low 1.0 - 2.5 [facility] ALP [Catalytic activity/Vol] 70 U/L 35 - 104 U/L [facility] ALT [Catalytic activity/Vol] 14 U/L 10 - 35 U/L [facility] Anion gap [Moles/Vol] 13 mmol/L 9 - 16 mmol/L [facility] AST [Catalytic activity/Vol] 20 U/L 10 - 35 U/L [facility] Bilirubin [Mass/Vol] 0.7 mg/dL 0.0 - 1 .2 mg/dL [facility] Calcium [Mass/Vol] 8 mg/dL Low 8.6 - 10. 4 mg/dL [facility] Chloride [Moles/Vol] 101 mmol/L 98 - 10 7 mmol/L [facility] CO2 [Moles/Vol] 25 mmol/L 20 - 31 mmol/L [facility] Creatinine [Mass/Vol] 0.7 mg/dL 0.6 - 0.9 mg/dL [facility] Est, Glom Filt Rate - PINF [facility] Glucose [Mass/Vol] 191 mg/dL High 74 - 99 mg/dL [facility] Potassium [Moles/Vol] 3.2 mmol/L Low 3.7 - 5.3 mmol/L [facility] Protein [Mass/Vol] 5.4 g/dL Low 6.6 - 8.7 g/dL [facility] Sodium [Moles/Vol] 139 mmol/L 136 - 145 mmol/L [facility] Urea nitrogen [Mass/Vol] 9 mg/dL 8 - 23 mg/dL [facility] Glucose,Whole Bloodon 2024 Glucose [Mass/Vol] 252 mg/dL High 65-105 [facility] Glucose [Mass/Vol] 228 mg/dL High 65-105 [facility] Glucose [Mass/Vol] 184 mg/dL High 65-105 [facility] K (Potassium)/rfx MGon 03-10 Potassium [Moles/Vol] 3.6 mmol/L Low 3.7-5.3 [facility] Comment on above: Performed By: #### K X ####[facility] [address] [place], [place] 199[address] [facility] Director: Jose Miguel Davis MD Magnesiumon 03-10-2025 Magnesium [Mass/Vol] 1.4 mg/dL Low 1.6 - 2 .4 mg/dL [facility] Magnesium [Mass/Vol] 1.4 mg/dL Low 1.6-2.4 [facility] Comment on above: Performed By: #### C P, MG, CDP ####[facility] [address] [place], [place] [id number] lab Director: Jose Miguel Davis MD No Panel Informationon 03-10 Interpretation and review of laboratory results Abnormal [facility] POC Glucose Fingerstickon Glucose [Mass/Vol] 252 mg/dL High 65 - 105 mg/dL [facility] Interpretation and review of laboratory results Abnormal [facility] Glucose [Mass/Vol] 228 mg/dL High 65 - 105 mg/dL [facility] Interpretation and review of laboratory results Abnormal [facility] Glucose [Mass/Vol] 184 mg/dL High 65 - 105 mg/dL [facility] Interpretation and review of laboratory results Abnormal [facility] Potassium w/ Reflex to [place] siumon 03-10-2025 Interpretation and review of laboratory results Abnormal [facility] Potassium [Moles/Vol] 3.6 mmol/L Low 3.7 - 5.3 mmol/L [facility] XR CHEST (2 VW)on 03-10-2025 XR CHEST (2 VW) EXAMINATION: TWO XRAY VIEWS OF THE CHEST 03/10/2025 8:32 am COMPARISON: 05 March 2025 HISTORY: ORDERING SYSTEM PROVIDED HISTORY: Bibasilar atelectasis/right upper lobe subsegmental atelectasis/infiltrate for follow-up TECHNOLOGIST PROVIDED HISTORY: Bibasilar atelectasis/right upper lobe subsegmental atelectasis/infiltrate for follow-up FINDINGS: Two-view chest time stamped 836 hours demonstrates overlying cardiac monitoring electrodes. There is interval improvement in the appearance of the lung field since prior exam. Heart size is smaller, now mildly enlarged. Thick band of atelectasis in the right mid lung field is smaller. Basilar infiltrate shows evidence of improvement and the pulmonary vascularity is now within normal limits. Small left effusion and possible left basilar atelectasis remains. No extrapleural air. Osseous structures are stable. IMPRESSION: 1. Interval improvement in the appearance of the lung field since prior exam. 2. Small left effusion and possible left basilar atelectasis remains. 3. Heart size is smaller, now mildly enlarged. Interpreted by: Irene Bravo MD Signed by: Irene Bravo MD 03/10/25 Final result Normal [facility] XR Chest 2 Viewson MHPN RIS CONSOLIDATED MHPN RIS CONSOLIDATED [facility] Radiology Study observation (narrative) [facility] XR Chest 2 ViewsOrdered By: Irene Bravo on 03-10-2025 [facility] Work Phone: CBC with Auto Differentialon 03-09-2025 Basophils (Bld) [#/Vol] 0.05 10*3/uL [facility] Basophils/100 WBC (Bld) 1 % 0 - 2 % [facility] Eosinophils (Bld) [#/Vol] 0.12 10*3/uL [facility] Eosinophils/100 WBC (Bld) 1 % 1 - 4 % [facility] Erythrocyte distribution width (RBC) [Ratio] 15.9 % High 11.8 - 14.4 % [facility] Hematocrit (Bld) [Volume fraction] 42.5 % 36.3 - 47.1 % [facility] Hemoglobin (Bld) [Mass/Vol] 12.8 g/dL 11.9 - 15.1 g/dL [facility] Immature granulocytes (Bld) [#/Vol] 0.33 10*3/uL High [facility] Immature granulocytes/100 WBC (Bld) 4 % High 0 [facility] Interpretation and review of laboratory results Abnormal [facility] Lymphocytes/100 WBC (Bld) 11 % Low 24 - 43 % [facility] Lymphocytes/100 WBC (Bld) 0.98 % Low [facility] MCH (RBC) [Entitic mass] 27.9 pg 25.2 - 33.5 pg [facility] MCHC (RBC) [Mass/Vol] 30.1 g/dL 28.4 - 34.8 g/dL [facility] MCV (RBC) [Entitic vol] 92.8 fL 82.6 - 102.9 fL [facility] Monocytes/100 WBC (Bld) 5 % 3 - 12 % [facility] Monocytes/100 WBC (Bld) 0.46 % [facility] Neutrophils/100 WBC (Bld) 78 % High 36 - 65 % [facility] Nucleated RBC/100 WBC (Bld) [Ratio] 0 % 0.0 per 100 WBC [facility] Platelet mean volume (Bld) [Entitic vol] 9.8 fL 8.1 - 13.5 fL [facility] Platelets (Bld) [#/Vol] 233 10*3/uL [facility] RBC (Bld) [#/Vol] 4.58 10*6/uL 3.95 - 5.1 1 m/uL [facility] RBC (Bld) [#/Vol] ANISOCYTOSIS PRESENT [facility] Segmented neutrophils/100 WBC (Bld) 6.96 % [facility] WBC other (Bld) [#/Vol] 8.9 [facility] CBC with Diffon 03-09-2025 Abs. Basophil 0.05 k/uL Normal 0.00-0.20 [facility] Comment on above: Performed By: #### C DP, MG, CP ####[facility] [address]ps[address]pxz35[address] [place], [place] [address])[phone] Director: Jose Miguel Davis MD Abs.Imm.Granulocyte 0.33 k/uL High 0.00-0.30 [facility] Comment on above: Performed By: #### C DP, MG, CP ####[facility] [address] [place] [address] [id number])[phone] Director: Jose Miguel Davis MD Abs.Neutrophil (Seg) 6.96 k/uL Normal 1.50-8.10 [facility] Comment on above: Performed By: #### C DP, MG, CP ####[facility] [address] [place], [place] [address])[phone] Director: Jose Miguel Davis MD Basophils/100 WBC (Bld) 1 % Normal 0-2 [facility] Comment on above: Performed By: #### C DP, MG, CP ####[facility] [address] [place], [place] [address])[phone] Director: Jose Miguel Davis MD Eosinophils (Bld) [#/Vol] 0.12 10*3/uL Normal 0.00-0.44 [facility] Comment on above: Performed By: #### C DP, MG, CP ####[facility] [address] [place], [place] [address])[phone] Director: Jose Miguel Davis MD Eosinophils/100 WBC (Bld) 1 % Normal 1-4 [facility] Comment on above: Performed By: #### C DP, MG, CP ####[facility] [address] [place], [place] [address])[phone] Director: Jose Miguel Davis MD Erythrocyte distribution width (RBC) [Ratio] 15.9 % High 11.8-14.4 [facility] Comment on above: Performed By: #### C DP, MG, CP ####[facility] [address] [place], [place] [address])[phone] Director: Jose Miguel Davis MD Hematocrit (Bld) [Volume fraction] 42.5 % Normal 36.3-47.1 [facility] Comment on above: Performed By: #### C DP, MG, CP ####[facility] [address] [place], [place] [address])[phone] Director: Jose Miguel Davis MD Hemoglobin (Bld) [Mass/Vol] 12.8 g/dL Normal 11.9-15.1 [facility] Comment on above: Performed By: #### C DP, MG, CP ####[facility] [address]jbjb37[address] [place], [place] [address])[phone] Director: Jose Miguel Davis MD Immature granulocytes/100 WBC (Bld) 4 % High 0 [facility] Comment on above: Performed By: #### C DP, MG, CP ####[facility] [address] [place] [address])[phone] Director: Jose Miguel Davis MD Lymphocytes (Bld) [#/Vol] 0.98 10*3/uL Low 1.10-3.70 [facility] Comment on above: Performed By: #### C DP, MG, CP ####[facility] [address] [place] [address] [id number])[phone] Director: Jose Miguel Davis MD Lymphocytes/100 WBC (Bld) 11 % Low 24-43 [facility] Comment on above: Performed By: #### C DP, MG, CP ####[facility] [address]cfvb[address] [place], [place] [address])[phone] Director: Jose Miguel Davis MD MCH (RBC) [Entitic mass] 27.9 pg Normal 25.2-33.5 [facility] Comment on above: Performed By: #### C DP, MG, CP ####[facility] [address]wofvpemhtft1297 [place], [place] [id number])[phone] Director: Jose Miguel Davis MD MCHC (RBC) [Mass/Vol] 30.1 g/dL Normal 28.4-34.8 [facility] Comment on above: Performed By: #### C DP, MG, CP ####[place], [place] [address])[phone] Director: Jose Miguel Davis MD MCV (RBC) [Entitic vol] 92.8 fL Normal 82.6-102.9 [facility] Comment on above: Performed By: #### C DP, MG, CP ####[place], [place] [address])[phone] Director: Jose Miguel Davis MD Monocytes (Bld) [#/Vol] 0.46 10*3/uL Normal 0.10-1.20 [facility] Comment on above: Performed By: #### C DP, MG, CP ####[place], [place] [address])[phone] Director: Jose Miguel Davis MD Monocytes/100 WBC (Bld) 5 % Normal 3-12 [facility] Comment on above: Performed By: #### C DP, MG, CP ####[place], [place] [address])[phone] Director: Jose Miguel Davis MD Neutrophil (Seg) 78 % High 36-65 [facility] Comment on above: Performed By: #### C DP, MG, CP ####[place], [place] [address])[phone] Director: Jose Miguel Davis MD NRBC Automated 0.0 per 100 WBC Normal 0.0 [facility] Comment on above: Performed By: #### C DP, MG, CP ####[place], [place] [address])[phone] Director: Jose Miguel Davis MD Platelet mean volume (Bld) [Entitic vol] 9.8 fL Normal 8.1-13.5 [facility] Comment on above: Performed By: #### C DP, MG, CP ####[facility] Tlwqp[address]upznr66[address] [place], [place] [id number])[phone] Director: Jose Miguel Davis MD Platelets (Bld) [#/Vol] 233 10*3/uL Normal 138-453 [facility] Comment on above: Performed By: #### C DP, MG, CP ####[address] [address] Lab Director: Jose Miguel Davis MD RBC (Bld) [#/Vol] 4.58 10*6/uL Normal 3.95-5.11 [facility] Comment on above: Performed By: #### C DP, MG, CP ####[address] [address] Lab Director: Jose Miguel Davis MD RBC morphology finding Nom (Bld) ANISOCYTOSIS PRESENT Normal [facility] Comment on above: Performed By: #### C DP, MG, CP ####[address] [id number])[phone] Director: Jose Miguel Davis MD WBC (Bld) [#/Vol] 8.9 10*3/uL Normal 3.5-11.3 [facility] Comment on above: Performed By: #### C DP, MG, CP ####[address] [address]([facility])[phone] Director: Jose Miguel Davis MD Comp Metabolic Profon 2024 Albumin [Mass/Vol] 2.8 g/dL Low 3.5-5.2 [facility] Comment on above: Performed By: #### C DP, MG, CP ####[facility] [address] [place] [address] [id number])[phone] Director: Jose Miguel Davis MD Albumin/Glob Ratio 0.9 Low 1.0-2.5 [facility] Comment on above: Performed By: #### C DP, MG, CP ####[facility] [address] [place], [place] [id number])[phone] Director: Jose Miguel Davis MD Alkaline Phos 75 U/L Normal 35-104 [facility] Comment on above: Performed By: #### C DP, MG, CP ####[facility] [address] [place], [place] [id number])[phone] Director: Jose Miguel Davis MD ALT [Catalytic activity/Vol] 15 U/L Normal 10-35 [facility] Comment on above: Performed By: #### C DP, MG, CP ####[facility] [address]x5[address] [place], [place] [id number])[phone] Director: Jose Miguel Davis MD Anion gap [Moles/Vol] 12 mmol/L Normal 9-16 [facility] Comment on above: Performed By: #### C DP, MG, CP ####[facility] [address] [place] [address] [id number])[phone] Director: Jose Miguel Davis MD AST [Catalytic activity/Vol] 18 U/L Normal 10-35 [facility] Comment on above: Performed By: #### C DP, MG, CP ####[facility] [address] [place], [place] [id number])[phone] Director: Jose Miguel Davis MD Bilirubin [Mass/Vol] 0.8 mg/dL Normal 0.0-1.2 [facility] Comment on above: Performed By: #### C DP, MG, CP ####[facility] [address] [place], [place] [id number])[phone] Director: Jose Miguel Davis MD Calcium [Mass/Vol] 8.4 mg/dL Low 8.6-10.4 [facility] Comment on above: Performed By: #### C DP, MG, CP ####[facility] [address]tnhhyb[address] [place], [place] [id number])[phone] Director: Jose Miguel Davis MD Chloride [Moles/Vol] 101 mmol/L Normal 98-107 [facility] Comment on above: Performed By: #### C DP, MG, CP ####[facility] [address]mt[address] [place], [place] [id number])[phone] Director: Jose Miguel Davis MD CO2 [Moles/Vol] 27 mmol/L Normal 20-31 [facility] Comment on above: Performed By: #### C DP, MG, CP ####[facility] [address] [place], [place] [id number])[phone] Director: Jose Miguel Davis MD Creatinine [Mass/Vol] 0.7 mg/dL Normal 0.6-0.9 [facility] Comment on above: Performed By: #### C DP, MG, CP ####[address] [id number])[phone] Director: Jose Miguel Davis MD GFR/1.73 sq M.predicted among non-blacks MDRD (S/P/Bld) [Vol rate/Area] mL/min/{1.73_m2} Normal >60 [facility] Comment on above: Result Comment: [...] affects renal tubular secretion. Performed By: #### C DP, MG, CP ####[facility] [address] [place] [address] Lab Director: Jose Miguel Davis MD Glucose [Mass/Vol] 276 mg/dL High 74-99 [facility] Comment on above: Performed By: #### C DP, MG, CP ####[facility] [place], [place] [id number])[phone] Director: Jose Miguel Davis MD Potassium [Moles/Vol] 3.6 mmol/L Low 3.7-5.3 [facility] Comment on above: Performed By: #### C DP, MG, CP ####[facility] [address] [place] [address] Lab Director: Jose Miguel Davis MD Protein [Mass/Vol] 5.9 g/dL Low 6.6-8.7 [facility] Comment on above: Performed By: #### C DP, MG, CP ####[facility] [address] [place] [address] Lab Director: Jose Miguel Davis MD Sodium [Moles/Vol] 140 mmol/L Normal 136-145 [facility] Comment on above: Performed By: #### C DP, MG, CP ####[facility] [address]wnrx[address] [place] [address] Lab Director: Jose Miguel Davis MD Urea nitrogen [Mass/Vol] 10 mg/dL Normal 8-23 [facility] Comment on above: Performed By: #### C DP, MG, CP ####[facility] [address] [place] [address] Lab Director: Jose Miguel Davis MD Comprehensive Metabolic Pane [facility] 03-09-2025 Albumin [Mass/Vol] 2.8 g/dL Low 3.5 - 5.2 g/dL [facility] Albumin/Globulin [Mass ratio] 0.9 {ratio} Low 1.0 - 2.5 [facility] ALP [Catalytic activity/Vol] 75 U/L 35 - 104 U/L [facility] ALT [Catalytic activity/Vol] 15 U/L 10 - 35 U/L [facility] Anion gap [Moles/Vol] 12 mmol/L 9 - 16 mmol/L [facility] AST [Catalytic activity/Vol] 18 U/L 10 - 35 U/L [facility] Bilirubin [Mass/Vol] 0.8 mg/dL 0.0 - 1 .2 mg/dL [facility] Calcium [Mass/Vol] 8.4 mg/dL Low 8.6 - 10. 4 mg/dL [facility] Chloride [Moles/Vol] 101 mmol/L 98 - 10 7 mmol/L [facility] CO2 [Moles/Vol] 27 mmol/L 20 - 31 mmol/L [facility] Creatinine [Mass/Vol] 0.7 mg/dL 0.6 - 0.9 mg/dL [facility] Est, Glom Filt Rate - PINF [facility] Glucose [Mass/Vol] 276 mg/dL High 74 - 99 mg/dL [facility] Interpretation and review of laboratory results Abnormal [facility] Potassium [Moles/Vol] 3.6 mmol/L Low 3.7 - 5.3 mmol/L [facility] Protein [Mass/Vol] 5.9 g/dL Low 6.6 - 8.7 g/dL [facility] Sodium [Moles/Vol] 140 mmol/L 136 - 145 mmol/L [facility] Urea nitrogen [Mass/Vol] 10 mg/dL 8 - 23 mg/dL [facility] Glucose,Whole Bloodon 2024 Glucose [Mass/Vol] 262 mg/dL High 65-105 [facility] Glucose [Mass/Vol] 219 mg/dL High 65-105 [facility] Glucose [Mass/Vol] 288 mg/dL High 65-105 [facility] Glucose [Mass/Vol] 259 mg/dL High 65-105 [facility] Magnesiumon 03-09-2025 Magnesium [Mass/Vol] 1.6 mg/dL 1.6 - 2 .4 mg/dL [facility] Magnesium [Mass/Vol] 1.6 mg/dL Normal 1.6-2.4 [facility] Comment on above: Performed By: #### C DP, MG, CP ####[address] [place] [address] [facility] Director: Jose Miguel Davis MD No Panel Informationon 03-09 [facility] POC Glucose Fingerstickon Glucose [Mass/Vol] 262 mg/dL High 65 - 105 mg/dL [facility] Interpretation and review of laboratory results Abnormal [facility] Glucose [Mass/Vol] 219 mg/dL High 65 - 105 mg/dL [facility] Interpretation and review of laboratory results Abnormal [facility] Glucose [Mass/Vol] 288 mg/dL High 65 - 105 mg/dL [facility] Interpretation and review of laboratory results Abnormal [facility] Glucose [Mass/Vol] 259 mg/dL High 65 - 105 mg/dL [facility] Interpretation and review of laboratory results Abnormal [facility] Basic Metab w/rfx MGon 03-08 Anion gap [Moles/Vol] 11 mmol/L Normal 9-16 [facility] Comment on above: Performed By: #### C DP, LIVP, MG, BMPX ####[facility] [address] [place] [address] Lab Director: Jose Miguel Davis MD Calcium [Mass/Vol] 8.6 mg/dL Normal 8.6-10.4 [facility] Comment on above: Performed By: #### C DP, LIVP, MG, BMPX ####[facility] [address] [place] [address] Lab Director: Jose Miguel Davis MD Chloride [Moles/Vol] 103 mmol/L Normal 98-107 [facility] Comment on above: Performed By: #### C DP, LIVP, MG, BMPX ####[facility] [address] [place] [address] Lab Director: Jose Miguel Davis MD CO2 [Moles/Vol] 28 mmol/L Normal 20-31 [facility] Comment on above: Performed By: #### C DP, LIVP, MG, BMPX ####[facility] [address] [place] [address] Lab Director: Jose Miguel Davis MD Creatinine [Mass/Vol] 0.6 mg/dL Normal 0.6-0.9 [facility] Comment on above: Performed By: #### C DP, LIVP, MG, BMPX ####[address] [address] Lab Director: Jose Miguel Davis MD GFR/1.73 sq M.predicted among non-blacks MDRD (S/P/Bld) [Vol rate/Area] mL/min/{1.73_m2} Normal >60 [facility] Comment on above: Result Comment: [...] affects renal tubular secretion. Performed By: #### C DP, LIVP, MG, BMPX ####[facility] [address] [place] [address] Lab Director: Jose Miguel Davis MD Glucose [Mass/Vol] 237 mg/dL High 74-99 [facility] Comment on above: Performed By: #### C DP, LIVP, MG, BMPX ####[facility] [address] [place] [address] Lab Director: Jose Miguel Davis MD Potassium [Moles/Vol] 3.5 mmol/L Low 3.7-5.3 [facility] Comment on above: Performed By: #### C DP, LIVP, MG, BMPX ####[facility] [address] [place] [address] Lab Director: Jose Miguel Davis MD Sodium [Moles/Vol] 142 mmol/L Normal 136-145 [facility] Comment on above: Performed By: #### C DP, LIVP, MG, BMPX ####[facility] [address] [place], [place] [id number] Lab Director: Jose Miguel Davis MD Urea nitrogen [Mass/Vol] 13 mg/dL Normal 8-23 [facility] Comment on above: Performed By: #### C DP, LIVP, MG, BMPX ####[facility] [address] [place], [place] [phone] lab Director: Jose Miguel Davis MD Basic Metabolic Panel w/ Ref sam to MGon 03-08-2025 Anion gap [Moles/Vol] 11 mmol/L 9 - 16 mmol/L [facility] Calcium [Mass/Vol] 8.6 mg/dL 8.6 - 10. 4 mg/dL [facility] Chloride [Moles/Vol] 103 mmol/L 98 - 10 7 mmol/L [facility] CO2 [Moles/Vol] 28 mmol/L 20 - 31 mmol/L [facility] Creatinine [Mass/Vol] 0.6 mg/dL 0.6 - 0.9 mg/dL [facility] Est, Glom Filt Rate - PINF [facility] Glucose [Mass/Vol] 237 mg/dL High 74 - 99 mg/dL [facility] Interpretation and review of laboratory results Abnormal [facility] Potassium [Moles/Vol] 3.5 mmol/L Low 3.7 - 5.3 mmol/L [facility] Sodium [Moles/Vol] 142 mmol/L 136 - 145 mmol/L [facility] Urea nitrogen [Mass/Vol] 13 mg/dL 8 - 23 mg/dL [facility] CBC with Auto Differentialon 03-08-2025 Basophils (Bld) [#/Vol] 0.05 10*3/uL [facility] Basophils/100 WBC (Bld) 1 % 0 - 2 % [facility] Eosinophils (Bld) [#/Vol] 0.11 10*3/uL [facility] Eosinophils/100 WBC (Bld) 1 % 1 - 4 % [facility] Erythrocyte distribution width (RBC) [Ratio] 16 % High 11.8 - 14.4 % [facility] Hematocrit (Bld) [Volume fraction] 42.7 % 36.3 - 47.1 % [facility] Hemoglobin (Bld) [Mass/Vol] 12.8 g/dL 11.9 - 15.1 g/dL [facility] Immature granulocytes (Bld) [#/Vol] 0.34 10*3/uL High [facility] Immature granulocytes/100 WBC (Bld) 4 % High 0 [facility] Interpretation and review of laboratory results Abnormal [facility] Lymphocytes/100 WBC (Bld) 11 % Low 24 - 43 % [facility] Lymphocytes/100 WBC (Bld) 1 % Low [facility] MCH (RBC) [Entitic mass] 28.1 pg 25.2 - 33.5 pg [facility] MCHC (RBC) [Mass/Vol] 30 g/dL 28.4 - 34.8 g/dL [facility] MCV (RBC) [Entitic vol] 93.6 fL 82.6 - 102.9 fL [facility] Monocytes/100 WBC (Bld) 5 % 3 - 12 % [facility] Monocytes/100 WBC (Bld) 0.47 % [facility] Neutrophils/100 WBC (Bld) 78 % High 36 - 65 % [facility] Nucleated RBC/100 WBC (Bld) [Ratio] 0 % 0.0 per 100 WBC [facility] Platelet mean volume (Bld) [Entitic vol] 10.7 fL 8.1 - 13.5 fL [facility] Platelets (Bld) [#/Vol] 209 10*3/uL [facility] RBC (Bld) [#/Vol] 4.56 10*6/uL 3.95 - 5.1 1 m/uL [facility] RBC (Bld) [#/Vol] ANISOCYTOSIS PRESENT [facility] Segmented neutrophils/100 WBC (Bld) 7.25 % [facility] WBC other (Bld) [#/Vol] 9.2 [facility] CBC with Diffon 03-08-2025 Abs. Basophil 0.05 k/uL Normal 0.00-0.20 [facility] Comment on above: Performed By: #### C DP, LIVP, MG, BMPX ####[facility] [address] [place], [place] [phone] Director: Jose Miguel Davis MD Abs.Imm.Granulocyte 0.34 k/uL High 0.00-0.30 [facility] Comment on above: Performed By: #### C DP, LIVP, MG, BMPX ####[facility] [address] [place], [place] [address])[phone] Director: Jose Miguel Davis MD Abs.Neutrophil (Seg) 7.25 k/uL Normal 1.50-8.10 [facility] Comment on above: Performed By: #### C DP, LIVP, MG, BMPX ####[facility] [address] [place], [place] [address])[phone] Director: Jose Miguel Davis MD Basophils/100 WBC (Bld) 1 % Normal 0-2 [facility] Comment on above: Performed By: #### C DP, LIVP, MG, BMPX ####[place], [place] [address])[phone] Director: Jose Miguel Davis MD Eosinophils (Bld) [#/Vol] 0.11 10*3/uL Normal 0.00-0.44 [facility] Comment on above: Performed By: #### C DP, LIVP, MG, BMPX ####[facility] [address] [place], [place] [address])[phone] Director: Jose Miguel Davis MD Eosinophils/100 WBC (Bld) 1 % Normal 1-4 [facility] Comment on above: Performed By: #### C DP, LIVP, MG, BMPX ####[facility] [address] [place], [place] [address])[phone] Director: Jose Miguel Davis MD Erythrocyte distribution width (RBC) [Ratio] 16.0 % High 11.8-14.4 [facility] Comment on above: Performed By: #### C DP, LIVP, MG, BMPX ####[address] [address])[phone] Director: Jose Miguel Davis MD Hematocrit (Bld) [Volume fraction] 42.7 % Normal 36.3-47.1 [facility] Comment on above: Performed By: #### C DP, LIVP, MG, BMPX ####[place], [place] [address])[phone] Director: Jose Miguel Davis MD Hemoglobin (Bld) [Mass/Vol] 12.8 g/dL Normal 11.9-15.1 [facility] Comment on above: Performed By: #### C DP, LIVP, MG, BMPX ####[place], [place] [address])[phone] Director: Jose Miguel Davis MD Immature granulocytes/100 WBC (Bld) 4 % High 0 [facility] Comment on above: Performed By: #### C DP, LIVP, MG, BMPX ####[place], [place] [address])[phone] Director: Jose Miguel Davis MD Lymphocytes (Bld) [#/Vol] 1.00 10*3/uL Low 1.10-3.70 [facility] Comment on above: Performed By: #### C DP, LIVP, MG, BMPX ####[place], [place] [address])[phone] Director: Jose Miguel Davis MD Lymphocytes/100 WBC (Bld) 11 % Low 24-43 [facility] Comment on above: Performed By: #### C DP, LIVP, MG, BMPX ####[address] [address] Lab Director: Jose Miguel Davis MD MCH (RBC) [Entitic mass] 28.1 pg Normal 25.2-33.5 [facility] Comment on above: Performed By: #### C DP, LIVP, MG, BMPX ####[facility] [address] [place], [place] [phone])[phone] Director: Jose Miguel Davis MD MCHC (RBC) [Mass/Vol] 30.0 g/dL Normal 28.4-34.8 [facility] Comment on above: Performed By: #### C DP, LIVP, MG, BMPX ####[facility] [address] [place] [address] [id number])[phone] Director: Jose Miguel Davis MD MCV (RBC) [Entitic vol] 93.6 fL Normal 82.6-102.9 [facility] Comment on above: Performed By: #### C DP, LIVP, MG, BMPX ####[facility] [address] [place], [place] [id number])[phone] Director: Jose Miguel Davis MD Monocytes (Bld) [#/Vol] 0.47 10*3/uL Normal 0.10-1.20 [facility] Comment on above: Performed By: #### C DP, LIVP, MG, BMPX ####[facility] [address] [place], [place] 68871419)[phone] Director: Jose Miguel Davis MD Monocytes/100 WBC (Bld) 5 % Normal 3-12 [facility] Comment on above: Performed By: #### C DP, LIVP, MG, BMPX ####[facility] [address] [place], [place] [phone] Director: Jose Miguel Davis MD Neutrophil (Seg) 78 % High 36-65 [facility] Comment on above: Performed By: #### C DP, LIVP, MG, BMPX ####[address] [address] Lab Director: Jose Miguel Davis MD NRBC Automated 0.0 per 100 WBC Normal 0.0 [facility] Comment on above: Performed By: #### C DP, LIVP, MG, BMPX ####[address] [id number])[phone] Director: Jose Miguel Davis MD Platelet mean volume (Bld) [Entitic vol] 10.7 fL Normal 8.1-13.5 [facility] Comment on above: Performed By: #### C DP, LIVP, MG, BMPX ####[address] [phone])[phone] Director: Jose Miguel Davis MD Platelets (Bld) [#/Vol] 209 10*3/uL Normal 138-453 [facility] Comment on above: Performed By: #### C DP, LIVP, MG, BMPX ####[address] [address])[phone] Director: Jose Miguel Davis MD RBC (Bld) [#/Vol] 4.56 10*6/uL Normal 3.95-5.11 [facility] Comment on above: Performed By: #### C DP, LIVP, MG, BMPX ####[address] [phone] Director: Jose Miguel Davis MD RBC morphology finding Nom (Bld) ANISOCYTOSIS PRESENT Normal [facility] Comment on above: Performed By: #### C DP, LIVP, MG, BMPX ####[address] [phone])[phone] Director: Jose Miguel Davis MD WBC (Bld) [#/Vol] 9.2 10*3/uL Normal 3.5-11.3 [facility] Comment on above: Performed By: #### C DP, LIVP, MG, BMPX ####[facility] [address] [place], [place] [address]99[address] lab Director: Jose Miguel Davis MD Cult, Bloodon 03-08-2025 Cult, Blood Specimen Description .BLOOD Special Requests NO INFO GIVEN Culture NO GROWTH 5 DAYS Report Status FINAL 03/08/2025 [facility] Comment on above: Performed By: #### B CUL2 ####[facility] [address] [place] [address] lab Director: Jose Miguel Davis MD Cult,Bloodon 03-08-2025 Cult,Blood Specimen Description .BLOOD Special Requests NO INFO GIVEN Culture NO GROWTH 5 DAYS Report Status FINAL 03/08/2025 [facility] Comment on above: Performed By: #### B C ####[address] [address] lab Director: Jose Miguel Davis MD Culture, Blood 1on 5 Microorganism identified Cx Nom (Unsp spec) NO GROWTH 5 DAYS [facility] [employer] Service comment (Unsp spec) [Interp] NO INFO GIVEN [facility] Specimen Description .BLOOD [facility] [employer] [facility] [employer] Culture, Blood 2on 5 Microorganism identified Cx Nom (Unsp spec) NO GROWTH 5 DAYS [facility] [employer] comment (Unsp spec) [Interp] NO INFO GIVEN [facility] [employer] Specimen Description .BLOOD [facility] [employer] [facility] [employer] Glucose,Whole Bloodon 2024 Glucose [Mass/Vol] 288 mg/dL High 65-105 [facility] Glucose [Mass/Vol] 405 mg/dL Critically high 65-105 [facility] Comment on above: Result Comment: Clary hannah Noted Glucose [Mass/Vol] 374 mg/dL High 65-105 [facility] Glucose [Mass/Vol] 210 mg/dL High 65-105 [facility] Hepatic Function Panelon Albumin [Mass/Vol] 2.7 g/dL Low 3.5 - 5.2 g/dL [facility] Albumin/Globulin [Mass ratio] 0.8 {ratio} Low 1.0 - 2.5 [facility] ALP [Catalytic activity/Vol] 86 U/L 35 - 104 U/L [facility] ALT [Catalytic activity/Vol] 16 U/L 10 - 35 U/L [facility] AST [Catalytic activity/Vol] 18 U/L 10 - 35 U/L [facility] Bilirubin [Mass/Vol] 0.8 mg/dL 0.0 - 1 .2 mg/dL [facility] Bilirubin.direct [Mass/Vol] 0.3 mg/dL High 0.0 - 0.2 mg/dL [facility] Bilirubin.indirect [Mass/Vol] 0.5 mg/dL 0.0 - 1.0 mg/dL [facility] Globulin (S) [Mass/Vol] 3.3 g/dL [facility] Interpretation and review of laboratory results Abnormal [facility] Protein [Mass/Vol] 6 g/dL Low 6.6 - 8.7 g/dL [facility] Liver Profileon 03-08-2025 Albumin [Mass/Vol] 2.7 g/dL Low 3.5-5.2 [facility] Comment on above: Performed By: #### C DP, LIVP, MG, BMPX ####[facility] [address] [place] [address] lab Director: Jose Miguel Davis MD Albumin/Glob Ratio 0.8 Low 1.0-2.5 [facility] Comment on above: Performed By: #### C DP, LIVP, MG, BMPX ####[employer] [address] [place] [address] lab Director: Jose Miguel Davis MD Alkaline Phos 86 U/L Normal 35-104 [facility] Comment on above: Performed By: #### C DP, LIVP, MG, BMPX ####[employer] [address] [place] [address] Lab Director: Jose Miguel Davis MD ALT [Catalytic activity/Vol] 16 U/L Normal [address] [place] [address] Comment on above: Performed By: #### C DP, LIVP, MG, BMPX ####[facility] [address] [place], [place] [id number])[phone] Director: Jose Miguel Davis MD AST [Catalytic activity/Vol] 18 U/L Normal [address] [place] [address] Comment on above: Performed By: #### C DP, LIVP, MG, BMPX ####[facility] [address] [place] [address] Lab Director: Jose Miguel Davis MD Bilirubin [Mass/Vol] 0.8 mg/dL Normal 0.0-1.2 [facility] Comment on above: Performed By: #### C DP, LIVP, MG, BMPX ####[facility] [address] [place], [place] [phone] Director: Jose Miguel Davis MD Bilirubin, Indirect 0.5 mg/dL Normal 0.0-1.0 [facility] Comment on above: Performed By: #### C DP, LIVP, MG, BMPX ####[facility] [address] [place], [place] [phone])[phone] Director: Jose Miguel Davis MD Bilirubin.indirect [Mass/Vol] 0.3 mg/dL High 0.0-0.2 [facility] Comment on above: Performed By: #### C DP, LIVP, MG, BMPX ####[facility] [address] [place], [place] [id number])[phone] Director: Jose Miguel Davis MD Globulin (S) [Mass/Vol] 3.3 g/dL Normal [facility] Comment on above: Performed By: #### C DP, LIVP, MG, BMPX ####[facility] [address] [place], [place] [phone] Director: Jose Miguel Davis MD Protein [Mass/Vol] 6.0 g/dL Low 6.6-8.7 [facility] Comment on above: Performed By: #### C DP, LIVP, MG, BMPX ####[facility] [address] [place], [place] [id number] lab Director: Jose Miguel Davis MD Magnesiumon 03-08-2025 Magnesium [Mass/Vol] 1.6 mg/dL 1.6 - 2 .4 mg/dL [facility] Magnesium [Mass/Vol] 1.6 mg/dL Normal 1.6-2.4 [facility] Comment on above: Performed By: #### C DP, LIVP, MG, BMPX ####[facility] [address] [place] [address] lab Director: Jose Miguel Davis MD POC Glucose Fingerstickon Glucose [Mass/Vol] 288 mg/dL High 65 - 105 mg/dL [facility] Interpretation and review of laboratory results Abnormal [facility] Glucose [Mass/Vol] 405 mg/dL Critically high 65 - 1 05 mg/dL [facility] Interpretation and review of laboratory results Abnormal [facility] Glucose [Mass/Vol] 374 mg/dL High 65 - 105 mg/dL [facility] Interpretation and review of laboratory results Abnormal [facility] Glucose [Mass/Vol] 210 mg/dL High 65 - 105 mg/dL [facility] Interpretation and review of laboratory results Abnormal [facility] Basic Metab w/rfx MGon 03-07 Anion gap [Moles/Vol] 9 mmol/L Normal 9-16 [facility] Comment on above: Performed By: #### C DP, MG, BMPX ####[facility] [address] [place] [address] lab Director: Jose Miguel Davis MD Calcium [Mass/Vol] 8.5 mg/dL Low 8.6-10.4 [facility] Comment on above: Performed By: #### C DP, MG, BMPX ####[facility] [address] [place], [place] [address])[phone] Director: Jose Miguel Davis MD Chloride [Moles/Vol] 107 mmol/L Normal 98-107 [facility] Comment on above: Performed By: #### C DP, MG, BMPX ####[facility] [address] [place], [place] [address])[phone] Director: Jose Miguel Davis MD CO2 [Moles/Vol] 28 mmol/L Normal 20-31 [facility] Comment on above: Performed By: #### C DP, MG, BMPX ####[address] [address])[phone] Director: Jose Miguel Davis MD Creatinine [Mass/Vol] 0.6 mg/dL Normal 0.6-0.9 [facility] Comment on above: Performed By: #### C DP, MG, BMPX ####[address] [address])[phone] Director: Jose Miguel Davis MD GFR/1.73 sq M.predicted among non-blacks MDRD (S/P/Bld) [Vol rate/Area] mL/min/{1.73_m2} Normal >60 [facility] Comment on above: Result Comment: [...] affects renal tubular secretion. Performed By: #### C DP, MG, BMPX ####[facility] [address] [place] [address] Lab Director: Jose Miguel Davis MD Glucose [Mass/Vol] 215 mg/dL High 74-99 [facility] Comment on above: Performed By: #### C DP, MG, BMPX ####[facility] [address] [place] [address] lab Director: Jose Miguel Davis MD Potassium [Moles/Vol] 3.5 mmol/L Low 3.7-5.3 [facility] Comment on above: Performed By: #### C DP, MG, BMPX ####[facility] [address] [place] [address] Lab Director: Jose Miguel Dvais MD Sodium [Moles/Vol] 144 mmol/L Normal 136-145 [facility] Comment on above: Performed By: #### C DP, MG, BMPX ####[facility] [address] [place], [place] 6535[address] Lab Director: Jose Miguel Davis MD Urea nitrogen [Mass/Vol] 22 mg/dL Normal 8-23 [facility] Comment on above: Performed By: #### C DP, MG, BMPX ####[facility] [address] [place] [address] Lab Director: Jose Miguel Davis MD Basic Metabolic Panel w/ Ref sam to on 03-07-2025 Anion gap [Moles/Vol] 9 mmol/L 9 - 16 mmol/L [facility] Calcium [Mass/Vol] 8.5 mg/dL Low 8.6 - 10. 4 mg/dL [facility] Chloride [Moles/Vol] 107 mmol/L 98 - 10 7 mmol/L [facility] CO2 [Moles/Vol] 28 mmol/L 20 - 31 mmol/L [facility] Creatinine [Mass/Vol] 0.6 mg/dL 0.6 - 0.9 mg/dL [facility] Est, Glom Filt Rate - PINF [facility] Glucose [Mass/Vol] 215 mg/dL High 74 - 99 mg/dL [facility] Interpretation and review of laboratory results Abnormal [facility] Potassium [Moles/Vol] 3.5 mmol/L Low 3.7 - 5.3 mmol/L [facility] Sodium [Moles/Vol] 144 mmol/L 136 - 145 mmol/L [facility] Urea nitrogen [Mass/Vol] 22 mg/dL 8 - 23 mg/dL [facility] CBC with Auto Differentialon 03-07-2025 Basophils (Bld) [#/Vol] 0.04 10*3/uL [facility] Immature granulocytes (Bld) [#/Vol] 0.17 10*3/uL [facility] Interpretation and review of laboratory results Abnormal [facility] Lymphocytes/100 WBC (Bld) 0.82 % Low [facility] Monocytes/100 WBC (Bld) 0.55 % [facility] Neutrophils/100 WBC (Bld) 85 % High 36 - 65 % [facility] Nucleated RBC/100 WBC (Bld) [Ratio] 0 % 0.0 per 100 WBC [facility] RBC (Bld) [#/Vol] ANISOCYTOSIS PRESENT [facility] Segmented neutrophils/100 WBC (Bld) 9.6 % High [facility] WBC other (Bld) [#/Vol] 11.3 [facility] CBC with Diffon 03-07-2025 Basophils/100 WBC (Bld) 0 % Normal 0-2 [facility] Comment on above: Performed By: #### C DP, MG, BMPX ####[facility] [address] [place] [id number] Lab Director: Jose Miguel Davis MD Eosinophils (Bld) [#/Vol] 0.11 10*3/uL Normal 0.00-0.44 [facility] Comment on above: Performed By: #### C DP, MG, BMPX ####[facility] [address] [place] [id number] Lab Director: Jose Miguel Davis MD Eosinophils/100 WBC (Bld) 1 % Normal 1-4 [facility] Comment on above: Performed By: #### C DP, MG, BMPX ####[facility] [address] [place], [place] [address])[phone] Director: Jose Miguel Davis MD Erythrocyte distribution width (RBC) [Ratio] 16.2 % High 11.8-14.4 [facility] Comment on above: Performed By: #### C DP, MG, BMPX ####[facility] [address] [place], [place] [address])[phone] Director: Jose Miguel Davis MD Hematocrit (Bld) [Volume fraction] 38.5 % Normal 36.3-47.1 [facility] Comment on above: Performed By: #### C DP, MG, BMPX ####[facility] [address]zxi[address] [place], [place] [address])[phone] Director: Jose Miguel Davis MD Hemoglobin (Bld) [Mass/Vol] 11.3 g/dL Low 11.9-15.1 [facility] Comment on above: Performed By: #### C DP, MG, BMPX ####[facility] [address] [place], [place] [address])[phone] Director: Jose Miguel Davis MD Immature granulocytes/100 WBC (Bld) 2 % High 0 [facility] Comment on above: Performed By: #### C DP, MG, BMPX ####[facility] [address]zxoix[address] [place], [place] [address])[phone] Director: Jose Miguel Davis MD Lymphocytes/100 WBC (Bld) 7 % Low 24-43 [facility] Comment on above: Performed By: #### C DP, MG, BMPX ####[facility] [address] [place], [place] [address])[phone] Director: Jose Miguel Davis MD MCH (RBC) [Entitic mass] 28.1 pg Normal 25.2-33.5 [facility] Comment on above: Performed By: #### C DP, MG, BMPX ####[facility] [address]chalp73[address] [place] [address] Lab Director: Jose Miguel Davis MD MCHC (RBC) [Mass/Vol] 29.4 g/dL Normal 28.4-34.8 [facility] Comment on above: Performed By: #### C DP, MG, BMPX ####[facility] [address] [place], [place] [address])[phone] Director: Jose Miguel Davis MD MCV (RBC) [Entitic vol] 95.8 fL Normal 82.6-102.9 [facility] Comment on above: Performed By: #### C DP, MG, BMPX ####[facility] [address]znqw[address] [place], [place] [address])[phone] Director: Jose Miguel Davis MD Monocytes/100 WBC (Bld) 5 % Normal 3-12 [facility] Comment on above: Performed By: #### C DP, MG, BMPX ####[facility] [address] [place], [place] [address])[phone] Director: Jose Miguel Davis MD Platelet mean volume (Bld) [Entitic vol] 10.6 fL Normal 8.1-13.5 [facility] Comment on above: Performed By: #### C DP, MG, BMPX ####[facility] [address]fufexnb[address] [place], [place] [address])[phone] Director: Jose Miguel Davis MD Platelets (Bld) [#/Vol] 152 10*3/uL Normal 138-453 [facility] Comment on above: Performed By: #### C DP, MG, BMPX ####[facility] [address] [place], [place] [address])[phone] Director: Jose Miguel Davis MD RBC (Bld) [#/Vol] 4.02 10*6/uL Normal 3.95-5.11 [facility] Comment on above: Performed By: #### C DP, MG, BMPX ####[facility] [address]7464 [place], [place] [id number])[phone] Director: Jose Miguel Davis MD Abs. Basophil 0.04 k/uL Normal 0.00-0.20 [facility] Comment on above: Performed By: #### C DP, MG, BMPX ####[facility] [address] [place] [address] [id number])[phone] Director: Jose Miguel Davis MD Abs.Imm.Granulocyte 0.17 k/uL Normal 0.00-0.30 [facility] Comment on above: Performed By: #### C DP, MG, BMPX ####[place], [place] [address])[phone] Director: Jose Miguel Davis MD Abs.Neutrophil (Seg) 9.60 k/uL High 1.50-8.10 [facility] Comment on above: Performed By: #### C DP, MG, BMPX ####[place], [place] [id number])[phone] Director: Jose Miguel Davis MD Lymphocytes (Bld) [#/Vol] 0.82 10*3/uL Low 1.10-3.70 [facility] Comment on above: Performed By: #### C DP, MG, BMPX ####[facility] [address] [place] [address] [id number])[phone] Director: Jose Miguel Davis MD Monocytes (Bld) [#/Vol] 0.55 10*3/uL Normal 0.10-1.20 [facility] Comment on above: Performed By: #### C DP, MG, BMPX ####[facility] [address] [place] [address]([facility])[phone] Director: Jose Miguel Davis MD Neutrophil (Seg) 85 % High 36-65 [facility] Comment on above: Performed By: #### C DP, MG, BMPX ####[facility] [address] [place] [address] Lab Director: Jose Miguel Davis MD NRBC Automated 0.0 per 100 WBC Normal 0.0 [facility] Comment on above: Performed By: #### C DP, MG, BMPX ####[facility] [address]bb6[address] [place], [place] [phone])[phone] Director: Jose Miguel Davis MD RBC morphology finding Nom (Bld) ANISOCYTOSIS PRESENT Normal [facility] Comment on above: Performed By: #### C DP, MG, BMPX ####[facility] [address]mq06[address] [place], [place] [id number])[phone] Director: Jose Miguel Davis MD WBC (Bld) [#/Vol] 11.3 10*3/uL Normal 3.5-11.3 [facility] Comment on above: Performed By: #### C DP, MG, BMPX ####[facility] [address] [place], [place] [id number])[phone] Director: Jose Miguel Davis MD Calcium, Ionicon 03-07-2025 Calcium [Moles/Vol] 1.21 mmol/L Normal 1.13-1.33 [facility] Comment on above: Performed By: #### I OCAL ####[facility] [address]hgqqlt5610 [place], [place] [phone] Director: Jose Miguel Davis MD Calcium, Ionizedon Calcium.ionized (Bld) [Moles/Vol] 1.21 mmol/L 1.13 - 1.33 mmol/L [facility] Bon [facility] Cult,Aerobe/Anaerobeon 03-07 Cult,Aerobe/Anaerobe Specimen Descriptio n .DRAINAGE PERC JT Direct Exam RARE NEUTROPHILS RARE GRAM NEGATIVE RODS Culture ESCHERICHIA COLI HEAVY GROWTH Identification by MALDI-TOF No anaerobic organisms isolated at 5 days. Report Status FINAL 03/09/2025 SUSCEPTIBILITY Organism ESCHERICHIA COLI Method YASMINE Ampicillin <=2 SUSCEPTIBLE Cefazolin <=4 SUSCEPTIBLE Ceftriaxone <=0.25 SUSCEPTIBLE ESBL NEGATIVE Gentamicin <=1 SUSCEPTIBLE Levofloxacin <=0.12 SUSCEPTIBLE Piperacillin/Tazobactam <=4 SUSCEPTIBLE Tobramycin <=1 SUSCEPTIBLE Trimethoprim/Sulfa <=20 SUSCEPTIBLE Susceptible [facility] Comment on above: Performed By: #### A ANC ####[employer] [address] [place], [place] [id number] lab Director: Jose Miguel Davis MD Culture, Anaerobic and Aerob icon 03-07-2025 Interpretation and review of laboratory results Abnormal [facility] Microorganism identified Cx Nom (Unsp spec) ESCHERICHIA COLI HEAVY GROWTH Identification by MALDI-TOF Abnormal [facility] Microorganism identified Cx Nom (Unsp spec) No anaerobic organisms isolated at 5 days. [facility] Microorganism or agent identified Nom (Unsp spec) RARE NEUTROPHILS [facility] Microorganism or agent identified Nom (Unsp spec) Negative [facility] Specimen Description .DRAINAGE PERC JT [facility] Glucose,Whole Bloodon 2024 Glucose [Mass/Vol] 249 mg/dL High 65-105 [facility] Glucose [Mass/Vol] 269 mg/dL High 65-105 [facility] Glucose [Mass/Vol] 239 mg/dL High 65-105 [facility] Glucose [Mass/Vol] 204 mg/dL High 65-105 [facility] Magnesiumon 03-07-2025 Magnesium [Mass/Vol] 1.8 mg/dL 1.6 - 2 .4 mg/dL [facility] Magnesium [Mass/Vol] 1.8 mg/dL Normal 1.6-2.4 [facility] Comment on above: Performed By: #### C DP, MG, BMPX ####[employer] [address] [place] [address] Lab Director: Jose Miguel Davis MD POC Glucose Fingerstickon Glucose [Mass/Vol] 249 mg/dL High 65 - 105 mg/dL [facility] Interpretation and review of laboratory results Abnormal [facility] Glucose [Mass/Vol] 269 mg/dL High 65 - 105 mg/dL [facility] Interpretation and review of laboratory results Abnormal [facility] Glucose [Mass/Vol] 239 mg/dL High 65 - 105 mg/dL [facility] Interpretation and review of laboratory results Abnormal [facility] Glucose [Mass/Vol] 204 mg/dL High 65 - 105 mg/dL [facility] Interpretation and review of laboratory results Abnormal [facility] Basic Metab w/rfx MGon 03-06 Anion gap [Moles/Vol] 10 mmol/L Normal 9-16 [facility] Comment on above: Performed By: #### B MPX, MG, CDP ####[facility] [address] [place] [address] Lab Director: Jose Miguel Davis MD Calcium [Mass/Vol] 8.9 mg/dL Normal 8.6-10.4 [facility] Comment on above: Performed By: #### B MPX, MG, CDP ####[facility] [address] [place] [address] Lab Director: Jose Miguel Davis MD Chloride [Moles/Vol] 104 mmol/L Normal 98-107 [facility] Comment on above: Performed By: #### B MPX, MG, CDP ####[facility] [address]j50[address] [place] [address] Lab Director: Jose Miguel Davis MD CO2 [Moles/Vol] 29 mmol/L Normal 20-31 [facility] Comment on above: Performed By: #### B MPX, MG, CDP ####[facility] [address]20[address] [place] [address] Lab Director: Jose Miguel Davis MD Creatinine [Mass/Vol] 1.0 mg/dL High 0.6-0.9 [facility] Comment on above: Performed By: #### B MPX, MG, CDP ####[facility] [address]ax[address] [place] [address] Lab Director: Jose Miguel Davis MD GFR/1.73 sq M.predicted among non-blacks MDRD (S/P/Bld) [Vol rate/Area] 59 mL/min/{1.73_m2} Low >60 [facility] Comment on above: Result Comment: [...] renal tubular secretion. Performed By: #### B MPX, MG, CDP ####[facility] HospitalUdacitySyslsxjutwhu[address] [place] [address] Lab Director: Jose Miguel Davis MD Glucose [Mass/Vol] 319 mg/dL High 74-99 [facility] Comment on above: Performed By: #### B MPX, MG, CDP ####[facility] [address] [place] [address] Lab Director: Jose Miguel Davis MD Potassium [Moles/Vol] 3.3 mmol/L Low 3.7-5.3 [facility] Comment on above: Performed By: #### B MPX, MG, CDP ####[facility]in[facility] [address] [place] [address] Lab Director: Jose Miguel Davis MD Sodium [Moles/Vol] 143 mmol/L Normal 136-145 [facility] Comment on above: Performed By: #### B MPX, MG, CDP ####[facility] [address]qffm[address] [place] [address] Lab Director: Jose Miguel Davis MD Urea nitrogen [Mass/Vol] 40 mg/dL High 8-23 [facility] Comment on above: Performed By: #### B MPX, MG, CDP ####[employer]Trvmfrabhjtx45[address] [place] [address] lab Director: Jose Miguel Davis MD Basic Metabolic Panel w/ Ref sam to MGon 03-06-2025 Anion gap [Moles/Vol] 10 mmol/L 9 - 16 mmol/L [facility] Calcium [Mass/Vol] 8.9 mg/dL 8.6 - 10. 4 mg/dL [facility] Chloride [Moles/Vol] 104 mmol/L 98 - 10 7 mmol/L [facility] CO2 [Moles/Vol] 29 mmol/L 20 - 31 mmol/L [facility] Creatinine [Mass/Vol] 1.0 mg/dL High 0.6 - 0.9 mg/dL [facility] Est, Glom Filt Rate 59 Low - PINF [facility] Glucose [Mass/Vol] 319 mg/dL High 74 - 99 mg/dL [facility] Interpretation and review of laboratory results Abnormal [facility] Potassium [Moles/Vol] 3.3 mmol/L Low 3.7 - 5.3 mmol/L [facility] Sodium [Moles/Vol] 143 mmol/L 136 - 145 mmol/L [facility] Urea nitrogen [Mass/Vol] 40 mg/dL High 8 - 23 mg/dL [facility] CBC with Auto Differentialon 03-06-2025 Basophils (Bld) [#/Vol] 0 10*3/uL [facility] Basophils/100 WBC (Bld) 0 % 0 - 2 % [facility] Eosinophils (Bld) [#/Vol] 0.15 10*3/uL [facility] Eosinophils/100 WBC (Bld) 1 % 1 - 4 % [facility] Erythrocyte distribution width (RBC) [Ratio] 16.4 % High 11.8 - 14.4 % [facility] Hematocrit (Bld) [Volume fraction] 39.3 % 36.3 - 47.1 % [facility] Hemoglobin (Bld) [Mass/Vol] 11.3 g/dL Low 11.9 - 15.1 g/dL [facility] Immature granulocytes (Bld) [#/Vol] 0.15 10*3/uL [facility] Immature granulocytes/100 WBC (Bld) 1 % High 0 [facility] Interpretation and review of laboratory results Abnormal [facility] Lymphocytes/100 WBC (Bld) 5 % Low 24 - 43 % [facility] Lymphocytes/100 WBC (Bld) 0.74 % Low [facility] MCH (RBC) [Entitic mass] 27.6 pg 25.2 - 33.5 pg [facility] MCHC (RBC) [Mass/Vol] 28.8 g/dL 28.4 - 34.8 g/dL [facility] MCV (RBC) [Entitic vol] 96.1 fL 82.6 - 102.9 fL [facility] Monocytes/100 WBC (Bld) 4 % 3 - 12 % [facility] Monocytes/100 WBC (Bld) 0.59 % [facility] Morphology Kevin (Bld) [Interp] ANISOCYTOSIS PRESENT [facility] Neutrophils/100 WBC (Bld) 89 % High 36 - 65 % [facility] Nucleated RBC/100 WBC (Bld) [Ratio] 0 % 0.0 per 100 WBC [facility] Platelet mean volume (Bld) [Entitic vol] 10.7 fL 8.1 - 13.5 fL [facility] Platelets (Bld) [#/Vol] 152 10*3/uL [facility] RBC (Bld) [#/Vol] 4.09 10*6/uL 3.95 - 5.1 1 m/uL [facility] Segmented neutrophils/100 WBC (Bld) 13.07 % High [facility] WBC other (Bld) [#/Vol] 14.7 High [facility] CBC with Diffon 03-06-2025 Abs. Basophil 0.00 k/uL Normal 0.00-0.20 [facility] Comment on above: Performed By: #### B MPX, MG, CDP ####[facility] [address]bs[address] [place] [address] lab Director: Jose Miguel Davis MD Abs.Imm.Granulocyte 0.15 k/uL Normal 0.00-0.30 [facility] Comment on above: Performed By: #### B MPX, MG, CDP ####[facility] [address]ugr56[address] [place], [place] [id number])[phone] Director: Jose Miguel Davis MD Abs.Neutrophil (Seg) 13.07 k/uL High 1.50-8.10 [facility] Comment on above: Performed By: #### B MPX, MG, CDP ####[facility] [address]xz[address] [place], [place] [address])[phone] Director: Jose Miguel Davis MD Basophils/100 WBC (Bld) 0 % Normal 0-2 [facility] Comment on above: Performed By: #### B MPX, MG, CDP ####[facility] [address] [place] [address])[phone] Director: Jose Miguel Davis MD Eosinophils (Bld) [#/Vol] 0.15 10*3/uL Normal 0.00-0.44 [facility] Comment on above: Performed By: #### B MPX, MG, CDP ####[facility] [address] [place] [address] [id number])[phone] Director: Jose Miguel Davis MD Eosinophils/100 WBC (Bld) 1 % Normal 1-4 [facility] Comment on above: Performed By: #### B MPX, MG, CDP ####[facility] Ixfyokfwuxgg8218 [place], [place] [id number])[phone] Director: Jose Miguel Davis MD Immature granulocytes/100 WBC (Bld) 1 % High 0 [facility] Comment on above: Performed By: #### B MPX, MG, CDP ####[facility] [address]stdxokjyd9[address] [place], [place] [address])[phone] Director: Jose Miguel Davis MD Lymphocytes (Bld) [#/Vol] 0.74 10*3/uL Low 1.10-3.70 [facility] Comment on above: Performed By: #### B MPX, MG, CDP ####[facility] [address] [place] [address] [id number])[phone] Director: Jose Miguel Davis MD Lymphocytes/100 WBC (Bld) 5 % Low 24-43 [facility] Comment on above: Performed By: #### B MPX, MG, CDP ####[facility] [address]br[address]asaapr0864 [place], [place] [address])[phone] Director: Jose Miguel Davis MD Monocytes (Bld) [#/Vol] 0.59 10*3/uL Normal 0.10-1.20 [facility] Comment on above: Performed By: #### B MPX, MG, CDP ####[place], [place] [address])[phone] Director: Jose Miguel Davis MD Monocytes/100 WBC (Bld) 4 % Normal 3-12 [facility] Comment on above: Performed By: #### B MPX, MG, CDP ####[facility] [address] [place] [address])[phone] Director: Jose Miguel Davis MD Morphology Kevin (Bld) [Interp] ANISOCYTOSIS PRESENT Normal [facility] Comment on above: Performed By: #### B MPX, MG, CDP ####[facility] [address]yvq[address] [place] [address])[phone] Director: Jose Miguel Davis MD Neutrophil (Seg) 89 % High 36-65 [facility] Comment on above: Performed By: #### B MPX, MG, CDP ####[facility] R[address]ir[address]okdoz2349 [place], [place] [id number])[phone] Director: Jose Miguel Davis MD Erythrocyte distribution width (RBC) [Ratio] 16.4 % High 11.8-14.4 [facility] Comment on above: Performed By: #### B MPX, MG, CDP ####[facility] [address]mwihztc0800 [place] [address] Lab Director: Jose Miguel Davis MD Hematocrit (Bld) [Volume fraction] 39.3 % Normal 36.3-47.1 [facility] Comment on above: Performed By: #### B MPX, MG, CDP ####[facility] Owzkgqbiqxzj2686 [place], [place] [address])[phone] Director: Jose Miguel Davis MD Hemoglobin (Bld) [Mass/Vol] 11.3 g/dL Low 11.9-15.1 [facility] Comment on above: Performed By: #### B MPX, MG, CDP ####[facility] [address]vx[address] [place], [place] [address])[phone] Director: Jose Miguel Davis MD MCH (RBC) [Entitic mass] 27.6 pg Normal 25.2-33.5 [facility] Comment on above: Performed By: #### B MPX, MG, CDP ####[facility] [address] [place] [address])[phone] Director: Jose Miguel Davis MD MCHC (RBC) [Mass/Vol] 28.8 g/dL Normal 28.4-34.8 [facility] Comment on above: Performed By: #### B MPX, MG, CDP ####[facility] [address]ywq[address] [place] [address])[phone] Director: Jose Miguel Davis MD MCV (RBC) [Entitic vol] 96.1 fL Normal 82.6-102.9 [facility] Comment on above: Performed By: #### B MPX, MG, CDP ####[facility] [address]zubumy65[address] [place], [place] [address])[phone] Director: Jose Miguel Davis MD NRBC Automated 0.0 per 100 WBC Normal 0.0 [facility] Comment on above: Performed By: #### B MPX, MG, CDP ####[facility] [address]trndmhzb9013 [place], [place] [id number])[phone] Director: Jose Miguel Davis MD Platelet mean volume (Bld) [Entitic vol] 10.7 fL Normal 8.1-13.5 [facility] Comment on above: Performed By: #### B MPX, MG, CDP ####[facility] I[address]fiqtq64[address] [place], [place] [id number])[phone] Director: Jose Miguel Davis MD Platelets (Bld) [#/Vol] 152 10*3/uL Normal 138-453 [facility] Comment on above: Performed By: #### B MPX, MG, CDP ####[facility] Z[address]qgbhennpz3932 [place], [place] [id number])[phone] Director: Jose Miguel Davis MD RBC (Bld) [#/Vol] 4.09 10*6/uL Normal 3.95-5.11 [facility] Comment on above: Performed By: #### B MPX, MG, CDP ####[facility] Hlldvkpzhhbt2435 [place], [place] [phone] Director: Jose Miguel Davis MD WBC (Bld) [#/Vol] 14.7 10*3/uL High 3.5-11.3 [facility] Comment on above: Performed By: #### B MPX, MG, CDP ####[facility] [address]ms[address]yeopt[address] [place], [place] [id number])[phone] Director: Jose Miguel Davsi MD Glucose,Whole Bloodon 2024 Glucose [Mass/Vol] 225 mg/dL High 65-105 [facility] Glucose [Mass/Vol] 279 mg/dL High 65-105 [facility] Glucose [Mass/Vol] 270 mg/dL High 65-105 [facility] Glucose [Mass/Vol] 263 mg/dL High 65-105 [facility] Magnesiumon 03-06-2025 Magnesium [Mass/Vol] 2.1 mg/dL 1.6 - 2 .4 mg/dL [facility] Magnesium [Mass/Vol] 2.1 mg/dL Normal 1.6-2.4 [facility] Comment on above: Performed By: #### B MPX, MG, CDP ####[facility] [address] [place] [id number] [facility] Director: Jose Miguel Davis MD POC Glucose Fingerstickon Glucose [Mass/Vol] 225 mg/dL High 65 - 105 mg/dL [facility] Interpretation and review of laboratory results Abnormal [facility] Glucose [Mass/Vol] 279 mg/dL High 65 - 105 mg/dL [facility] Interpretation and review of laboratory results Abnormal [facility] Glucose [Mass/Vol] 270 mg/dL High 65 - 105 mg/dL [facility] Interpretation and review of laboratory results Abnormal [facility] Glucose [Mass/Vol] 263 mg/dL High 65 - 105 mg/dL [facility] Interpretation and review of laboratory results Abnormal [facility] Arterial Bld Gas,POCon 03-05 [place] Test Positive Normal [facility] FIO2 10.0 Normal [facility] HCO3 (Bld) [Moles/Vol] 28.2 mmol/L High 21.0-28.0 [facility] Oxygen saturation in Blood 95.2 % Normal 94.0-98.0 [facility] pCO2, Arterial 50.8 mm Hg High 35.0-48.0 [facility] pH, Arterial 7.353 Normal 7.350-7.450 [facility] pO2, Arterial 81.6 mm Hg Low 83.0-108.0 [facility] Positive Base Excess (calc) 1.8 mmol/L Normal 0.0-3.0 [facility] Site Drawn Right Radial Artery Normal [facility] Arterial Blood Gas, POCon Kolby Test Positive [facility] FIO2 10 [facility] HCO3 (Bld) [Moles/Vol] 28.2 mmol/L High 21.0 - 28.0 mmol/L [facility] Oxygen saturation in Blood 95.2 % 94.0 - 98.0 % [facility] POC pCO2 50.8 High [facility] POC pH 7.353 7.350 - 7.450 [facility] POC PO2 81.6 Low [facility] Positive Base Excess, Art 1.8 mmol/L 0.0 - 3.0 mmol/L [facility] Sample Site Right Radial Artery [facility] CBC with Auto Differentialon 03-05-2025 Basophils (Bld) [#/Vol] 0 10*3/uL [facility] Basophils/100 WBC (Bld) 0 % 0 - 2 % [facility] Eosinophils (Bld) [#/Vol] 0 10*3/uL [facility] Eosinophils/100 WBC (Bld) 0 % Low 1 - 4 % [facility] Erythrocyte distribution width (RBC) [Ratio] 16.3 % High 11.8 - 14.4 % [facility] Hematocrit (Bld) [Volume fraction] 40.8 % 36.3 - 47.1 % [facility] Hemoglobin (Bld) [Mass/Vol] 11.9 g/dL 11.9 - 15.1 g/dL [facility] Immature granulocytes (Bld) [#/Vol] 0 10*3/uL [facility] Immature granulocytes/100 WBC (Bld) 0 % 0 [facility] Interpretation and review of laboratory results Abnormal [facility] Lymphocytes/100 WBC (Bld) 4 % Low 24 - 44 % [facility] Lymphocytes/100 WBC (Bld) 0.97 % Low [facility] MCH (RBC) [Entitic mass] 27.8 pg 25.2 - 33.5 pg [facility] MCHC (RBC) [Mass/Vol] 29.2 g/dL 28.4 - 34.8 g/dL [facility] MCV (RBC) [Entitic vol] 95.3 fL 82.6 - 102.9 fL [facility] Monocytes/100 WBC (Bld) 5 % 1 - 7 % [facility] Monocytes/100 WBC (Bld) 1.21 % High [facility] Morphology Kevin (Bld) [Interp] ANISOCYTOSIS PRESENT [facility] Neutrophils/100 WBC (Bld) 91 % High 36 - 66 % [facility] Nucleated RBC/100 WBC (Bld) [Ratio] 0.1 % High 0.0 per 100 WBC [facility] Platelet mean volume (Bld) [Entitic vol] 11 fL 8.1 - 13.5 fL [facility] Platelets (Bld) [#/Vol] 155 10*3/uL [facility] RBC (Bld) [#/Vol] 4.28 10*6/uL 3.95 - 5.1 1 m/uL [facility] Segmented neutrophils/100 WBC (Bld) 22.02 % High [facility] WBC other (Bld) [#/Vol] 24.2 High [facility] CBC with Diffon 03-05-2025 Abs. Basophil 0.00 k/uL Normal 0.0-0.2 [facility] Comment on above: Performed By: #### C DP, CMPX, LACTIC ####[facility] Hospital[facility]ineng Energy [address] [place] [address] Lab Director: Jose Miguel Davis MD Abs.Imm.Granulocyte 0.00 k/uL Normal 0.00-0.30 [facility] Comment on above: Performed By: #### C DP, CMPX, LACTIC ####[employer] [address] [place] [address] Lab Director: Jose Miguel Davis MD Abs.Neutrophil (Seg) 22.02 k/uL High 1.8-7.7 [facility] Comment on above: Performed By: #### C DP, CMPX, LACTIC ####[employer] [address] [place] [address] Lab Director: Jose Miguel Davis MD Basophils/100 WBC (Bld) 0 % Normal 0-2 [facility] Comment on above: Performed By: #### C DP, CMPX, LACTIC ####[facility] [address] [place], [place] [id number])[phone] Director: Jose Miguel Davis MD Eosinophils (Bld) [#/Vol] 0.00 10*3/uL Normal 0.0-0.4 [facility] Comment on above: Performed By: #### C DP, CMPX, LACTIC ####[facility] [address] [place] [address])[phone] Director: Jose Miguel Davis MD Eosinophils/100 WBC (Bld) 0 % Low 1-4 [facility] Comment on above: Performed By: #### C DP, CMPX, LACTIC ####[facility] [address] [place] [address])[phone] Director: Jose Miguel Davis MD Immature granulocytes/100 WBC (Bld) 0 % Normal 0 [facility] Comment on above: Performed By: #### C DP, CMPX, LACTIC ####[employer] [address] [place] [address] [id number])[phone] Director: Jose Miguel Davis MD Lymphocytes (Bld) [#/Vol] 0.97 10*3/uL Low 1.0-4.8 [facility] Comment on above: Performed By: #### C DP, CMPX, LACTIC ####[facility] [address] [place], [place] [id number])[phone] Director: Jose Miguel Davis MD Lymphocytes/100 WBC (Bld) 4 % Low 24-44 [facility] Comment on above: Performed By: #### C DP, CMPX, LACTIC ####[facility] [address] [place] [address] Lab Director: Jose Miguel Davis MD Monocytes (Bld) [#/Vol] 1.21 10*3/uL High 0.1-0.8 [facility] Comment on above: Performed By: #### C DP, CMPX, LACTIC ####[facility] [address] [place], [place] [id number])[phone] Director: Jose Miguel Davis MD Monocytes/100 WBC (Bld) 5 % Normal 1-7 [facility] Comment on above: Performed By: #### C DP, CMPX, LACTIC ####[facility] [address] [place], [place] [id number])[phone] Director: Jose Miguel Davis MD Morphology Kevin (Bld) [Interp] ANISOCYTOSIS PRESENT Normal [facility] Comment on above: Performed By: #### C DP, CMPX, LACTIC ####[address] [id number])[phone] Director: Jose Miguel Davis MD Neutrophil (Seg) 91 % High 36-66 [facility] Comment on above: Performed By: #### C DP, CMPX, LACTIC ####[facility] [address] [place] [address] [id number])[phone] Director: Jose Miguel Davis MD Erythrocyte distribution width (RBC) [Ratio] 16.3 % High 11.8-14.4 [facility] Comment on above: Performed By: #### C DP, CMPX, LACTIC ####[facility] [address] [place], [place] [id number])[phone] Director: Jose Miguel Davis MD Hematocrit (Bld) [Volume fraction] 40.8 % Normal 36.3-47.1 [facility] Comment on above: Performed By: #### C DP, CMPX, LACTIC ####[facility] [address] [place], [place] [id number])[phone] Director: Jose Miguel Davis MD Hemoglobin (Bld) [Mass/Vol] 11.9 g/dL Normal 11.9-15.1 [facility] Comment on above: Performed By: #### C DP, CMPX, LACTIC ####[facility] [address] [place], [place] [address])[phone] Director: Jose Miguel Davis MD MCH (RBC) [Entitic mass] 27.8 pg Normal 25.2-33.5 [facility] Comment on above: Performed By: #### C DP, CMPX, LACTIC ####[facility] [address] [place], [place] [address])[phone] Director: Jose Miguel Davis MD MCHC (RBC) [Mass/Vol] 29.2 g/dL Normal 28.4-34.8 [facility] Comment on above: Performed By: #### C DP, CMPX, LACTIC ####[place], [place] [address])[phone] Director: Jose Miguel Davis MD MCV (RBC) [Entitic vol] 95.3 fL Normal 82.6-102.9 [facility] Comment on above: Performed By: #### C DP, CMPX, LACTIC ####[place], [place] [address])[phone] Director: Jose Miguel Davis MD NRBC Automated 0.1 per 100 WBC High 0.0 [facility] Comment on above: Performed By: #### C DP, CMPX, LACTIC ####[place], [place] [address])[phone] Director: Jose Miguel Davis MD Platelet mean volume (Bld) [Entitic vol] 11.0 fL Normal 8.1-13.5 [facility] Comment on above: Performed By: #### C DP, CMPX, LACTIC ####[facility] [address] [place], [place] [address])[phone] Director: Jose Miguel Davis MD Platelets (Bld) [#/Vol] 155 10*3/uL Normal 138-453 [facility] Comment on above: Performed By: #### C DP, CMPX, LACTIC ####[facility] [address] [place], [place] [id number])[phone] Director: Jose Miguel Davis MD RBC (Bld) [#/Vol] 4.28 10*6/uL Normal 3.95-5.11 [facility] Comment on above: Performed By: #### C DP, CMPX, LACTIC ####[facility] [address] [place], [place] [id number])[phone] Director: Jose Miguel Davis MD WBC (Bld) [#/Vol] 24.2 10*3/uL High 3.5-11.3 [facility] Comment on above: Performed By: #### C DP, CMPX, LACTIC ####[facility] [address] [place], [place] [id number])[phone] Director: Jose Miguel Davis MD Comp Metabolic Pr/rfx MGon 0 - Albumin [Mass/Vol] 2.3 g/dL Low 3.5-5.2 [facility] Comment on above: Performed By: #### C DP, CMPX, LACTIC ####[facility] [address] [place], [place] [id number])[phone] Director: Jose Miguel Davis MD Albumin/Glob Ratio 0.6 Low 1.0-2.5 [facility] Comment on above: Performed By: #### C DP, CMPX, LACTIC ####[facility] [address] [place], [place] [id number])[phone] Director: Jose Miguel Davis MD Alkaline Phos 151 U/L High 35-104 [facility] Comment on above: Performed By: #### C DP, CMPX, LACTIC ####[facility] [address] [place], [place] [id number])[phone] Director: Jose Miguel Davis MD ALT [Catalytic activity/Vol] 33 U/L Normal 10-35 [facility] Comment on above: Performed By: #### C DP, CMPX, LACTIC ####[facility] [address] [place], [place] [id number])[phone] Director: Jose Miguel Davis MD Anion gap [Moles/Vol] 16 mmol/L Normal 9-16 [facility] Comment on above: Performed By: #### C DP, CMPX, LACTIC ####[facility] [address] [place], [place] [id number])[phone] Director: Jose Miguel Davis MD AST [Catalytic activity/Vol] 45 U/L High 10-35 [facility] Comment on above: Performed By: #### C DP, CMPX, LACTIC ####[facility] [address] [place], [place] [address])[phone] Director: Jose Miguel Davis MD Bilirubin [Mass/Vol] 1.8 mg/dL High 0.0-1.2 [facility] Comment on above: Performed By: #### C DP, CMPX, LACTIC ####[facility] [address] [place], [place] [address])[phone] Director: Jose Miguel Davis MD Calcium [Mass/Vol] 8.5 mg/dL Low 8.6-10.4 [facility] Comment on above: Performed By: #### C DP, CMPX, LACTIC ####[facility] [address] [place], [place] [address])[phone] Director: Jose Miguel Davis MD Chloride [Moles/Vol] 108 mmol/L High 98-107 [facility] Comment on above: Performed By: #### C DP, CMPX, LACTIC ####[facility] [address] [place], [place] [id number])[phone] Director: Jose Miguel Davis MD CO2 [Moles/Vol] 22 mmol/L Normal 20-31 [facility] Comment on above: Performed By: #### C DP, CMPX, LACTIC ####[facility] [address] [place] [address] Lab Director: Jose Miguel Davis MD Creatinine [Mass/Vol] 1.6 mg/dL High 0.6-0.9 [facility] Comment on above: Performed By: #### C DP, CMPX, LACTIC ####[address] [address] Lab Director: Jose Miguel Davis MD GFR/1.73 sq M.predicted among non-blacks MDRD (S/P/Bld) [Vol rate/Area] 33 mL/min/{1.73_m2} Low >60 [facility] Comment on above: Result Comment: [...] affects renal tubular secretion. Performed By: #### C DP, CMPX, LACTIC ####[address] [address] Lab Director: Jose Miguel Davis MD Glucose [Mass/Vol] 251 mg/dL High 74-99 [facility] Comment on above: Performed By: #### C DP, CMPX, LACTIC ####[address] [address] Lab Director: Jose Miguel Davis MD Potassium [Moles/Vol] 4.0 mmol/L Normal 3.7-5.3 [facility] Comment on above: Performed By: #### C DP, CMPX, LACTIC ####[facility] [address] [place] [address] [id number])[phone] Director: Jose Miguel Davis MD Protein [Mass/Vol] 6.0 g/dL Low 6.6-8.7 [facility] Comment on above: Performed By: #### C DP, CMPX, LACTIC ####[facility] [address] [place], [place] 1077108 Lab Director: Jose Miguel Davis MD Sodium [Moles/Vol] 146 mmol/L High 136-145 [facility] Comment on above: Performed By: #### C DP, CMPX, LACTIC ####[facility] [address] [place], [place] 0655608 lab Director: Jose Miguel Davis MD Urea nitrogen [Mass/Vol] 56 mg/dL High 8-23 [facility] Comment on above: Performed By: #### C DP, CMPX, LACTIC ####[facility] [address] [place], [place] [id number] lab Director: Jose Miguel Davis MD Comprehensive Metabolic Pane l w/ Reflex to MGon 03-05-2025 Albumin [Mass/Vol] 2.3 g/dL Low 3.5 - 5.2 g/dL [facility] Albumin/Globulin [Mass ratio] 0.6 {ratio} Low 1.0 - 2.5 [facility] ALP [Catalytic activity/Vol] 151 U/L High 35 - 104 U/L [facility] ALT [Catalytic activity/Vol] 33 U/L 10 - 35 U/L [facility] Anion gap [Moles/Vol] 16 mmol/L 9 - 16 mmol/L [facility] AST [Catalytic activity/Vol] 45 U/L High 10 - 35 U/L [facility] Bilirubin [Mass/Vol] 1.8 mg/dL High 0.0 - 1 .2 mg/dL [facility] Calcium [Mass/Vol] 8.5 mg/dL Low 8.6 - 10. 4 mg/dL [facility] Chloride [Moles/Vol] 108 mmol/L High 98 - 10 7 mmol/L [facility] CO2 [Moles/Vol] 22 mmol/L 20 - 31 mmol/L [facility] Creatinine [Mass/Vol] 1.6 mg/dL High 0.6 - 0.9 mg/dL [facility] Est, Glom Filt Rate 33 Low - PINF [facility] [employer] Glucose [Mass/Vol] 251 mg/dL High 74 - 99 mg/dL [facility] [employer] Interpretation and review of laboratory results Abnormal [facility] [employer] Potassium [Moles/Vol] 4 mmol/L 3.7 - 5.3 mmol/L [facility] [employer] Protein [Mass/Vol] 6 g/dL Low 6.6 - 8.7 g/dL [facility] [employer] Sodium [Moles/Vol] 146 mmol/L High 136 - 145 mmol/L [facility] [employer] Urea nitrogen [Mass/Vol] 56 mg/dL High 8 - 23 mg/dL [facility] [employer] [facility] [employer] EKG 12 LeadOrdered By: Rickey Preciado on 03-05-2025 Atrial Rate 77 BPM [facility] [employer] Work Phone: P-R Interval 160 ms [facility] [employer] Work Phone: [phone] Q-T Interval 392 ms [facility] Work Phone: QRS Duration 94 ms [facility] [employer] Work Phone: QTc Calculation (Bazett) 443 ms [facility] [employer] Work Phone: R Erie -30 degrees [facility] [employer] Work Phone: T Erie 53 degrees [facility] [employer] Work Phone: [phone] Ventricular Rate 77 BPM [facility] [employer] Work Phone: [facility] [employer] Work Phone: EKG 12 Leadon 03-05-2025 MHPN STV MUSE [facility] [employer] [place] UGIon 03-05-2025 FL UGI EXAMINATION: SINGLE CONTRAST UPPER GI SERIES 03/05/2025 HISTORY: ORDERING SYSTEM PROVIDED HISTORY: looking for duodenal perforation TECHNOLOGIST PROVIDED HISTORY: looking for duodenal perforation 74-year-old female; evaluate for duodenal perforation COMPARISON: Abdominal KUB from 03/05/2025 TECHNIQUE: A total of 200 mL of Omnipaque 240 contrast was injected through the nasogastric tube into the stomach. FLUOROSCOPY DOSE AND TYPE: Fluoro time: 1.9 minutes DAP: 1094.969 dGycm2 Air kerma: 150.508 mGy FINDINGS: Please note exam is limited due to patient's inability to stand. The exam was performed with the patient laying in the AP supine position on the table with the head tilted upright approximately 30-40 degrees. Fluoroscopic executive legal secretary images of the chest and abdomen were obtained. NG tube traverses the GE junction with distal tip overlying the left upper quadrant likely within the body of the stomach. Drainage catheter or pigtail catheter tube projects over the midline abdomen. cafeteria monitor leads overlie the abdomen. Right IJ approach central venous catheter distal tip overlying the right atrium. Multifocal airspace disease throughout the lungs. Small to moderate left-sided pleural effusion. Atherosclerotic calcification of the aortic knob. Cardiomegaly. Pelvic phleboliths. Moderate bilateral hip osteoarthrosis. Psoas shadows symmetric in appearance. No abnormally dilated small bowel loops. Contrast was injected through the NG tube into the stomach. There was enlargement of the stomach and opacification of the stomach with contrast. Contrast migrates through the duodenal C-loop into proximal small bowel/jejunal loops. No obvious extraluminal contrast is seen. No evidence for a leak in the region of the duodenum. IMPRESSION: No clear fluoroscopic evidence for extravasation in the region of the duodenum/duodenal leak within the limitations of the study. Interpreted by: Dalton Simmons MD Signed by: Dalton Simmons MD 03/05/25 Final result Normal [facility] MHPN RIS CONSOLIDATED PN RIS CONSOLIDATED [facility] Radiology Study observation (narrative) [facility] [place] UGIOrdered By: Dalton Simmons on 03-05-2025 [facility] Work Phone: Glucose (POC)on 03-05-2025 Glucose [Mass/Vol] 249 mg/dL High 74-100 [facility] Glucose,Whole Bloodon 2024 Glucose [Mass/Vol] 236 mg/dL High 65-105 [facility] Glucose [Mass/Vol] 259 mg/dL High 65-105 [facility] Glucose [Mass/Vol] 234 mg/dL High 65-105 [facility] Glucose [Mass/Vol] 228 mg/dL High 65-105 [facility] Lactic Acidon 03-05-2025 Lactic Acid, Whole Blood 2.1 mmol/L 0.7 - 2.1 mmol/L [facility] Lactic Acid,Whole Bl 2.1 mmol/L Normal 0.7-2.1 [facility] Comment on above: Performed By: #### C DP, CMPX, LACTIC ####[facility] [address] [place] [address] [facility] Director: Jose Miguel Davis MD Lactic Acid (POC)on 03-05-20 25 Lactate [Moles/Vol] 1.4 mmol/L High 0.56-1.39 [facility] Lactic Acid, POCon 5 POC Lactic Acid 1.4 mmol/L High 0.56 - 1.39 mmol/L [facility] No Panel Informationon 03-05 Interpretation and review of laboratory results Abnormal [facility] POC Glucose Fingerstickon Glucose [Mass/Vol] 236 mg/dL High 65 - 105 mg/dL [facility] Interpretation and review of laboratory results Abnormal [facility] Glucose [Mass/Vol] 259 mg/dL High 65 - 105 mg/dL [facility] Interpretation and review of laboratory results Abnormal [facility] Glucose [Mass/Vol] 234 mg/dL High 65 - 105 mg/dL [facility] Interpretation and review of laboratory results Abnormal [facility] Glucose [Mass/Vol] 228 mg/dL High 65 - 105 mg/dL [facility] Interpretation and review of laboratory results Abnormal [facility] POCT Glucoseon 03-05-2025 Glucose [Mass/Vol] 249 mg/dL High 74 - 100 mg/dL [facility] Portable XR Chest AP single viewon 03-05-2025 MHPN RIS CONSOLIDATED MHPN RIS CONSOLIDATED [facility] Radiology Study observation (narrative) [employer] Portable XR Chest AP single viewOrdered By: Alexey López on 03-05-2025 [facility] [employer] Work Phone: XR ABDOMEN FOR NG/OG/NE TUBE PLACEMENTon 03-05-2025 XR ABDOMEN FOR NG/OG/NE TUBE PLACEMENT EXAMINATION: ONE SUPINE XRAY VIEW(S) OF THE ABDOMEN 03/05/2025 5:49 am COMPARISON: None. HISTORY: ORDERING SYSTEM PROVIDED HISTORY: NG placement TECHNOLOGIST PROVIDED HISTORY: NG placement Portable?->Yes FINDINGS: Enteric tube tip and side holes are confirmed in the lumen of the stomach. A cholecystostomy tube projects over the right upper quadrant. Normal bowel gas pattern. There is some contrast within the lumen of the colon. Scoliosis and degenerative changes are seen in the thoracolumbar spine. IMPRESSION: Appropriate positioning of enteric tube. Interpreted by: Alex Hoffman IV, MD Signed by: Alex Hoffman IV, MD 03/05/25 Final result Normal [facility] MHPN RIS CONSOLIDATED MHPN RIS CONSOLIDATED [facility] Radiology Study observation (narrative) [facility] XR ABDOMEN FOR NG/OG/NE TUBE PLACEMENTOrdered By: Alex Hoffman on 03-05-2025 [facility] Work Phone: XR CHEST PORTABLEon 03-05-20 XR CHEST PORTABLE EXAMINATION: ONE XRAY VIEW OF THE CHEST 03/05/2025 12:30 am COMPARISON: 03/03/2025 HISTORY: ORDERING SYSTEM PROVIDED HISTORY: line placement TECHNOLOGIST PROVIDED HISTORY: line placement FINDINGS: The central venous catheter on the right is seen terminating in the region of the cavoatrial junction/proximal right atrium. No pneumothorax is identified. Enlargement of the cardiac silhouette. The enteric catheter appears to extend below the level the film. Multiple wires overlie the patient's chest. Mild increased perihilar airspace disease. Degenerative changes seen within the spine and shoulders. IMPRESSION: 1. Right IJ central venous catheter tip terminates in the region of the cavoatrial junction/proximal right atrium. 2. No pneumothorax. 3. Mild increased perihilar airspace disease, which may represent asymmetric edema or atelectasis. 4. Background cardiomegaly with vascular congestion and prominent interstitial change suggestive of edema. Interpreted by: Alexey López MD Signed by: Alexey López MD 03/05/25 Final result Normal [facility] CBC with Auto Differentialon 03-04-2025 Basophils (Bld) [#/Vol] 0 10*3/uL [facility] Basophils/100 WBC (Bld) 0 % 0 - 2 % [facility] Eosinophils (Bld) [#/Vol] 0 10*3/uL [facility] Eosinophils/100 WBC (Bld) 0 % Low 1 - 4 % [facility] Erythrocyte distribution width (RBC) [Ratio] 15.9 % High 11.8 - 14.4 % [facility] Hematocrit (Bld) [Volume fraction] 41.8 % 36.3 - 47.1 % [facility] Hemoglobin (Bld) [Mass/Vol] 12.7 g/dL 11.9 - 15.1 g/dL [facility] Immature granulocytes (Bld) [#/Vol] 0 10*3/uL [facility] Immature granulocytes/100 WBC (Bld) 0 % 0 [facility] Interpretation and review of laboratory results Abnormal [facility] Lymphocytes/100 WBC (Bld) 4 % Low 24 - 43 % [facility] Lymphocytes/100 WBC (Bld) 0.47 % Low [facility] MCH (RBC) [Entitic mass] 27.9 pg 25.2 - 33.5 pg [facility] MCHC (RBC) [Mass/Vol] 30.4 g/dL 28.4 - 34.8 g/dL [facility] MCV (RBC) [Entitic vol] 91.9 fL 82.6 - 102.9 fL [facility] Monocytes/100 WBC (Bld) 6 % 3 - 12 % [facility] Monocytes/100 WBC (Bld) 0.7 % [facility] Morphology Kevin (Bld) [Interp] ANISOCYTOSIS PRESENT [facility] Neutrophils/100 WBC (Bld) 90 % High 36 - 65 % [facility] Nucleated RBC/100 WBC (Bld) [Ratio] 0 % 0.0 per 100 WBC [facility] Platelet mean volume (Bld) [Entitic vol] 10.4 fL 8.1 - 13.5 fL [facility] Platelets (Bld) [#/Vol] 164 10*3/uL [facility] RBC (Bld) [#/Vol] 4.55 10*6/uL 3.95 - 5.1 1 m/uL [facility] Segmented neutrophils/100 WBC (Bld) 10.53 % High [facility] WBC other (Bld) [#/Vol] 11.7 High [facility] CBC with Diffon 03-04-2025 Abs. Basophil 0.00 k/uL Normal 0.00-0.20 [facility] Comment on above: Performed By: #### C DP, MG, TROPI, CMPX, LACTIC ####[facility] [address] [place], [place] [address])[phone] Director: Jose Miguel Davis MD Abs.Imm.Granulocyte 0.00 k/uL Normal 0.00-0.30 [facility] Comment on above: Performed By: #### C DP, MG, TROPI, CMPX, LACTIC ####[facility] Pdptybxtlduu0636 [place], [place] [address])[phone] Director: Jose Miguel Davis MD Abs.Neutrophil (Seg) 10.53 k/uL High 1.50-8.10 [facility] Comment on above: Performed By: #### C DP, MG, TROPI, CMPX, LACTIC ####[facility] Shlkzjxodeku6[address] [place], [place] [address])[phone] Director: Jose Miguel Davis MD Basophils/100 WBC (Bld) 0 % Normal 0-2 [facility] Comment on above: Performed By: #### C DP, MG, TROPI, CMPX, LACTIC ####[facility] Xy[address]qqwuqoc16[address] [place], [place] [address])[phone] Director: Jose Miguel Davis MD Eosinophils (Bld) [#/Vol] 0.00 10*3/uL Normal 0.00-0.44 [facility] Comment on above: Performed By: #### C DP, MG, TROPI, CMPX, LACTIC ####[facility] [address] [place] [address])[phone] Director: Jose Miguel Davis MD Eosinophils/100 WBC (Bld) 0 % Low 1-4 [facility] Comment on above: Performed By: #### C DP, MG, TROPI, CMPX, LACTIC ####[facility] [address] [place] [address])[phone] Director: Jose Miguel Davis MD Immature granulocytes/100 WBC (Bld) 0 % Normal 0 [facility] Comment on above: Performed By: #### C DP, MG, TROPI, CMPX, LACTIC ####[address] [address])[phone] Director: Jose Miguel Davis MD Lymphocytes (Bld) [#/Vol] 0.47 10*3/uL Low 1.10-3.70 [facility] Comment on above: Performed By: #### C DP, MG, TROPI, CMPX, LACTIC ####[address] [address])[phone] Director: Jose Miguel Davis MD Lymphocytes/100 WBC (Bld) 4 % Low 24-43 [facility] Comment on above: Performed By: #### C DP, MG, TROPI, CMPX, LACTIC ####[facility] [address] [place], [place] [address])[phone] Director: Jose Miguel Davis MD Monocytes (Bld) [#/Vol] 0.70 10*3/uL Normal 0.10-1.20 [facility] Comment on above: Performed By: #### C DP, MG, TROPI, CMPX, LACTIC ####[facility] [address] [place] [address] Lab Director: Jose Miguel Davis MD Monocytes/100 WBC (Bld) 6 % Normal 3-12 [facility] Comment on above: Performed By: #### C DP, MG, TROPI, CMPX, LACTIC ####[facility] [address] [place], [place] [id number])[phone] Director: Jose Miguel Davis MD Morphology Kevin (Bld) [Interp] ANISOCYTOSIS PRESENT Normal [facility] Comment on above: Performed By: #### C DP, MG, TROPI, CMPX, LACTIC ####[facility] I[address]thjow[address] [place], [place] [id number])[phone] Director: Jose Miguel Davis MD Neutrophil (Seg) 90 % High 36-65 [facility] Comment on above: Performed By: #### C DP, MG, TROPI, CMPX, LACTIC ####[facility] [address]xfrrinypj[address] [place], [place] [address])[phone] Director: Jose Miguel Davis MD Erythrocyte distribution width (RBC) [Ratio] 15.9 % High 11.8-14.4 [facility] Comment on above: Performed By: #### C DP, MG, TROPI, CMPX, LACTIC ####[facility] [address] [place], [place] [address])[phone] Director: Jose Miguel Davis MD Hematocrit (Bld) [Volume fraction] 41.8 % Normal 36.3-47.1 [facility] Comment on above: Performed By: #### C DP, MG, TROPI, CMPX, LACTIC ####[facility] [address]uh[address] [place], [place] [address])[phone] Director: Jose Miguel Davis MD Hemoglobin (Bld) [Mass/Vol] 12.7 g/dL Normal 11.9-15.1 [facility] Comment on above: Performed By: #### C DP, MG, TROPI, CMPX, LACTIC ####[facility] Igyvfubuwvcb0228 [place], [place] [id number])[phone] Director: Jose Miguel aDvis MD MCH (RBC) [Entitic mass] 27.9 pg Normal 25.2-33.5 [facility] Comment on above: Performed By: #### C DP, MG, TROPI, CMPX, LACTIC ####[facility] [address] [place] [address] [id number])[phone] Director: Jose Miguel Davis MD MCHC (RBC) [Mass/Vol] 30.4 g/dL Normal 28.4-34.8 [facility] Comment on above: Performed By: #### C DP, MG, TROPI, CMPX, LACTIC ####[place], [place] [address])[phone] Director: Jose Miguel Davis MD MCV (RBC) [Entitic vol] 91.9 fL Normal 82.6-102.9 [facility] Comment on above: Performed By: #### C DP, MG, TROPI, CMPX, LACTIC ####[place], [place] [address])[phone] Director: Jose Miguel Davis MD NRBC Automated 0.0 per 100 WBC Normal 0.0 [facility] Comment on above: Performed By: #### C DP, MG, TROPI, CMPX, LACTIC ####[place], [place] [address])[phone] Director: Jose Miguel Davis MD Platelet mean volume (Bld) [Entitic vol] 10.4 fL Normal 8.1-13.5 [facility] Comment on above: Performed By: #### C DP, MG, TROPI, CMPX, LACTIC ####[address] [address])[phone] Director: Jose Miguel Davis MD Platelets (Bld) [#/Vol] 164 10*3/uL Normal 138-453 [facility] Comment on above: Performed By: #### C DP, MG, TROPI, CMPX, LACTIC ####[facility] [address] [place] [address] Lab Director: Jose Miguel Davis MD RBC (Bld) [#/Vol] 4.55 10*6/uL Normal 3.95-5.11 [facility] Comment on above: Performed By: #### C DP, MG, TROPI, CMPX, LACTIC ####[facility] [address] [place] [address] Lab Director: Jsoe Miguel Davis MD WBC (Bld) [#/Vol] 11.7 10*3/uL High 3.5-11.3 [facility] Comment on above: Performed By: #### C DP, MG, TROPI, CMPX, LACTIC ####[facility] [address]nl[address] [place], [place] [id number] Lab Director: Jose Miguel Davis MD Cardiac echo study Procedure on 03-04-2025 Ao Root Index 1.38 cm/m2 [facility] Aortic Root 2.7 cm [facility] Ascending Aorta 3 cm [facility] Aorta Index 1.53 cm/m2 [facility] AV Area by Peak Velocity 1.5 cm2 [facility] AV Area by VTI 1.4 cm2 [facility] AV Mean Gradient 12 mmHg [facility] AV Mean Velocity 1.6 m/s [facility] AV Peak Gradient 22 mmHg [facility] AV Peak Velocity 2.3 m/s [facility] AV Velocity Ratio 0.52 [facility] AV VTI 39.3 cm [facility] TOM/BSA Peak Velocity 0.8 cm2/m2 [facility] TOM/BSA VTI 0.7 cm2/m2 [facility] Body surface area Derived from formula 2.08 m2 [facility] E/E' Lateral 10.98 [facility] E/E' Ratio (Averaged) 9.29 [facility] E/E' Septal 7.6 [facility] EF BP 60 % 55 - 100 % [facility] EF Physician 60 % [facility] Est. RA Pressure 3 mmHg [facility] Fractional Shortening 2D 39 % 28 - 44 % [facility] Interpretation and review of laboratory results Abnormal [facility] IVC Proxmal 2.3 cm [facility] IVSd 1.2 cm Abnormal 0.6 - 0.9 cm [facility] LA Diameter 3.4 cm [facility] LA Size Index 1.73 cm/m2 [facility] LA/AO Root Ratio 1.26 [facility] LV E' Lateral Velocity 8.38 cm/s Bon [facility] LV E' Septal Velocity 12.1 cm/s [facility] LV EDV A2C 91 mL [facility] LV EDV A4C 98 mL Bon [facility] LV EDV Index A2C 46 mL/m2 [facility] LV EDV Index A4C 50 mL/m2 [facility] LV Ejection Fraction A2C 55 % [facility] LV Ejection Fraction A4C 81 % Bon [facility] LV ESV A2C 41 mL Bon [facility] LV ESV A4C 19 mL [facility] LV ESV Index A2C 21 mL/m2 [facility] LV ESV Index A4C 10 mL/m2 [facility] LV Mass 2D 226.4 g Abnormal 67 - 162 g [facility] LV Mass 2D Index 115.5 g/m2 Abnormal 43 - 95 g/m2 [facility] LV RWT Ratio 0.49 [facility] LVIDd 4.9 cm 3.9 - 5.3 cm [facility] LVIDd Index 2.5 cm/m2 [facility] LVIDs 3 cm [facility] LVIDs Index 1.53 cm/m2 [facility] LVOT Area 2.8 cm2 [facility] LVOT Diameter 1.9 cm [facility] LVOT Mean Gradient 3 mmHg [facility] [employer] LVOT Peak Gradient 6 mmHg [facility] [employer] LVOT Peak Velocity 1.2 m/s [facility] LVOT Stroke Volume Index 28.6 mL/m2 [facility] LVOT SV 56.1 ml [facility] LVOT VTI 19.8 cm [facility] LVOT:AV VTI Index 0.5 Bon [facility] LVPWd 1.2 cm Abnormal 0.6 - 0.9 cm [facility] MV A Velocity 0.71 m/s [facility] MV Area by VTI 1.7 cm2 [place] [facility] MV E Velocity 0.92 m/s [facility] MV E Wave Deceleration Time 219 ms [facility] MV E/A 1.3 [facility] MV Max Velocity 1.1 m/s [facility] rs [facility] MV Mean Gradient 2 mmHg [facility] MV Mean Velocity 0.7 m/s [facility] urs [facility] MV Peak Gradient 5 mmHg [facility] urs [facility] MV VTI 33.3 cm [facility] MV:LVOT VTI Index 1.68 Bon [facility] RV Free Wall Peak S' 16 cm/s [facility] RVSP 30 mmHg [facility] TAPSE 1.8 cm 1.7 cm [facility] TR Max Velocity 2.62 m/s [facility] TR Peak Gradient 27 mmHg [facility] CV CPACS [facility] Radiology Study observation (narrative) [facility] Comp Metabolic Pr/rfx MGon 0 - Albumin [Mass/Vol] 2.4 g/dL Low 3.5-5.2 [facility] Comment on above: Performed By: #### C DP, MG, TROPI, CMPX, LACTIC ####[facility] [place] [address] lab Director: Jose Miguel Davis MD Albumin/Glob Ratio 0.7 Low 1.0-2.5 [facility] Comment on above: Performed By: #### C DP, MG, TROPI, CMPX, LACTIC ####[employer] [place] [address] Lab Director: Jose Miguel Davis MD Alkaline Phos 66 U/L Normal 35-104 [facility] Comment on above: Performed By: #### C DP, MG, TROPI, CMPX, LACTIC ####[facility] [address] [place], [place] [id number])[phone] Director: Jose Miguel Davis MD ALT [Catalytic activity/Vol] 33 U/L Normal 10-35 [facility] Comment on above: Performed By: #### C DP, MG, TROPI, CMPX, LACTIC ####[facility] [address] [place] [address] [id number])[phone] Director: Jose Miguel Davis MD Anion gap [Moles/Vol] 13 mmol/L Normal 9-16 [facility] Comment on above: Performed By: #### C DP, MG, TROPI, CMPX, LACTIC ####[facility] [address] [place] [address] [id number])[phone] Director: Jose Miguel Davis MD AST [Catalytic activity/Vol] 29 U/L Normal 10-35 [facility] Comment on above: Performed By: #### C DP, MG, TROPI, CMPX, LACTIC ####[facility] [address] [place] [address] [id number])[phone] Director: Jose Miguel Davis MD Bilirubin [Mass/Vol] 1.3 mg/dL High 0.0-1.2 [facility] Comment on above: Performed By: #### C DP, MG, TROPI, CMPX, LACTIC ####[facility] [address] [place], [place] [id number])[phone] Director: Jose Miguel Davis MD Calcium [Mass/Vol] 8.4 mg/dL Low 8.6-10.4 [facility] Comment on above: Performed By: #### C DP, MG, TROPI, CMPX, LACTIC ####[facility] [address] [place] [address] [place] [address] Lab Director: Jose Miguel Davis MD Chloride [Moles/Vol] 102 mmol/L Normal 98-107 [facility] Comment on above: Performed By: #### C DP, MG, TROPI, CMPX, LACTIC ####[facility] [address]qn[address] [place] [address] Lab Director: Jose Miguel Davis MD CO2 [Moles/Vol] 26 mmol/L Normal 20-31 [facility] Comment on above: Performed By: #### C DP, MG, TROPI, CMPX, LACTIC ####[address] [address])[phone] Director: Jose Miguel Davis MD Creatinine [Mass/Vol] 1.5 mg/dL High 0.6-0.9 [facility] Comment on above: Performed By: #### C DP, MG, TROPI, CMPX, LACTIC ####[facility] [address] [place] [address] Lab Director: Jose Miguel Davis MD GFR/1.73 sq M.predicted among non-blacks MDRD (S/P/Bld) [Vol rate/Area] 36 mL/min/{1.73_m2} Low >60 [facility] Comment on above: Result Comment: [...] affects renal tubular secretion. Performed By: #### C DP, MG, TROPI, CMPX, LACTIC ####[facility] [address] [place] [address] Lab Director: Jose Miguel Davis MD Glucose [Mass/Vol] 191 mg/dL High 74-99 [facility] Comment on above: Performed By: #### C DP, MG, TROPI, CMPX, LACTIC ####[facility] [address]cec[address]98 [place] [address] Lab Director: Jose Miguel Davis MD Potassium [Moles/Vol] 3.5 mmol/L Low 3.7-5.3 [facility] Comment on above: Result Comment: Spec imen hemolysis has exceeded the interference as defined by Ranjith. Value may be falsely increased. Suggest recollection if clinically indicated. Performed By: #### C DP, MG, TROPI, CMPX, LACTIC ####[facility] [address] [place] [address] Lab Director: Jose Miguel Davis MD Protein [Mass/Vol] 5.9 g/dL Low 6.6-8.7 [facility] Comment on above: Performed By: #### C DP, MG, TROPI, CMPX, LACTIC ####[facility] [address] [place], [place] [address])[phone] Director: Jose Miguel Davis MD Sodium [Moles/Vol] 141 mmol/L Normal 136-145 [facility] Comment on above: Performed By: #### C DP, MG, TROPI, CMPX, LACTIC ####[facility] [address] [place] [address] Lab Director: Jose Miguel Davis MD Urea nitrogen [Mass/Vol] 56 mg/dL High 8-23 [facility] Comment on above: Performed By: #### C DP, MG, TROPI, CMPX, LACTIC ####[facility] [address] [place] [address] Lab Director: Jose Miguel Davis MD Comprehensive Metabolic Pane l w/ Reflex to MGon 03-04-2025 Albumin [Mass/Vol] 2.4 g/dL Low 3.5 - 5.2 g/dL [facility] Albumin/Globulin [Mass ratio] 0.7 {ratio} Low 1.0 - 2.5 [facility] ALP [Catalytic activity/Vol] 66 U/L 35 - 104 U/L [facility] ALT [Catalytic activity/Vol] 33 U/L 10 - 35 U/L [facility] Anion gap [Moles/Vol] 13 mmol/L 9 - 16 mmol/L [facility] AST [Catalytic activity/Vol] 29 U/L 10 - 35 U/L [facility] Bilirubin [Mass/Vol] 1.3 mg/dL High 0.0 - 1 .2 mg/dL [facility] Calcium [Mass/Vol] 8.4 mg/dL Low 8.6 - 10. 4 mg/dL [facility] Chloride [Moles/Vol] 102 mmol/L 98 - 10 7 mmol/L [facility] CO2 [Moles/Vol] 26 mmol/L 20 - 31 mmol/L [facility] Creatinine [Mass/Vol] 1.5 mg/dL High 0.6 - 0.9 mg/dL [facility] Est, Glom Filt Rate 36 Low - PINF [facility] Glucose [Mass/Vol] 191 mg/dL High 74 - 99 mg/dL [facility] Potassium [Moles/Vol] 3.5 mmol/L Low 3.7 - 5.3 mmol/L [facility] Protein [Mass/Vol] 5.9 g/dL Low 6.6 - 8.7 g/dL [facility] Sodium [Moles/Vol] 141 mmol/L 136 - 145 mmol/L [facility] Urea nitrogen [Mass/Vol] 56 mg/dL High 8 - 23 mg/dL [facility] Cult,Urineon 03-04-2025 Cult,Urine Specimen Description .CLEAN CATCH URINE Special Requests Site: Urine Culture NO GROWTH Report Status FINAL 03/04/2025 Normal [facility] Comment on above: Performed By: #### U ####[facility] [address] [place] [address] lab Director: Jose Miguel Davis MD Culture, Urineon 03-04-2025 Microorganism identified Cx Nom (Unsp spec) NO GROWTH [facility] Service comment (Unsp spec) [Interp] Site: Urine [facility] Specimen Description .CLEAN CATCH URINE [facility] EKG 12 LeadOrdered By: Malick Dodson on 03-04-2025 Atrial Rate 73 BPM [employer] Work Phone: P Erie 67 degrees [employer] Work Phone: P-R Interval 216 ms [employer] Work Phone: Q-T Interval 456 ms [employer] Work Phone: QRS Duration 100 ms [employer] Work Phone: QTc Calculation (Bazett) 502 ms [employer] Work Phone: R Erie -52 degrees [employer] Work Phone: T Erie 163 degrees [employer] Work Phone: Ventricular Rate 73 BPM [facility] [employer] Work Phone: [employer] Work Phone: EKG 12 Leadon 03-04-2025 [facility] STV MUSE [facility] Glucose,Whole Bloodon 2024 Glucose [Mass/Vol] 124 mg/dL High 65-105 [facility] Glucose [Mass/Vol] 156 mg/dL High 65-105 [facility] Glucose [Mass/Vol] 176 mg/dL High 65-105 [facility] Glucose [Mass/Vol] 191 mg/dL High 65-105 [facility] Glucose [Mass/Vol] 159 mg/dL High 65-105 [facility] IR CHOLECYSTOSTOMY PERCUTANE OUS COMPLETEon 03-04-2025 PN RIS CONSOLIDATED PN RIS CONSOLIDATED [facility] Radiology Study observation (narrative) [facility] IR CHOLECYSTOSTOMY PERCUTANE OUS COMPLETEOrdered By: Tanner Baez on 03-04-2025 [employer] Work Phone: K (Potassium)on 03-04-2025 Potassium [Moles/Vol] 3.4 mmol/L Low 3.7-5.3 [facility] Comment on above: Performed By: #### T Ilan BELLE ####[facility] [address] [place], [place] [id number] lab Director: Jose Miguel Davis MD Lactic Acidon 03-04-2025 Lactic Acid, Whole Blood 1.8 mmol/L 0.7 - 2.1 mmol/L [facility] Lactic Acid,Whole Bl 1.8 mmol/L Normal 0.7-2.1 [facility] Comment on above: Performed By: #### C DP, MG, TROPI, CMPX, LACTIC ####[facility] [address] [place], [place] [id number] lab Director: Jose Miguel Davis MD MRSA DNA Probe, Nasalon 02-06 MRSA, DNA, Nasal Negative NEGATIVE [facility] Specimen Description .NASAL SWAB [facility] MRSA, DNA, Nasalon MRSA, DNA, Nasal Negative Normal NEG [facility] Comment on above: Result Comment: NEGA TIVE: MRSA DNA not detected by nucleic acid amplification. Results should be used as an adjunct to nosocomial control efforts to identify patients needing enhanced precautions. The test is not intended to identify patients with staphylococcal infections. Results should not be used to guide or monitor treatment for MRSA infections. Performed By: #### M RSANO ####[facility] [address] [place] [address] lab Director: Jose Miguel Davis MD Magnesiumon 03-04-2025 Magnesium [Mass/Vol] 2.2 mg/dL 1.6 - 2 .4 mg/dL [facility] Magnesium [Mass/Vol] 2.2 mg/dL Normal 1.6-2.4 [facility] Comment on above: Performed By: #### C DP, MG, TROPI, CMPX, LACTIC ####[facility] [address] [place] [address] lab Director: Jose Miguel Davis MD No Panel Informationon 03-04 Interpretation and review of laboratory results Abnormal [facility] Interpretation and review of laboratory results Abnormal [facility] POC Glucose Fingerstickon Glucose [Mass/Vol] 124 mg/dL High 65 - 105 mg/dL [facility] Interpretation and review of laboratory results Abnormal [facility] Glucose [Mass/Vol] 156 mg/dL High 65 - 105 mg/dL [facility] Interpretation and review of laboratory results Abnormal [facility] Glucose [Mass/Vol] 176 mg/dL High 65 - 105 mg/dL [facility] Interpretation and review of laboratory results Abnormal [facility] Glucose [Mass/Vol] 191 mg/dL High 65 - 105 mg/dL [facility] Interpretation and review of laboratory results Abnormal [facility] Glucose [Mass/Vol] 159 mg/dL High 65 - 105 mg/dL [facility] Interpretation and review of laboratory results Abnormal [facility] Potassiumon 03-04-2025 Potassium [Moles/Vol] 3.4 mmol/L Low 3.7 - 5.3 mmol/L [facility] Troponinon 03-04-2025 Interpretation and review of laboratory results Abnormal [facility] Troponin I.cardiac High sensitivity method [Mass/Vol] 112 ng/L Critically high 0 - 14 ng/L [facility] Troponin, High Sens 112 ng/L Critically high 0-14 [facility] Comment on above: Result Comment: High Sensitivity Troponin values cannot be compared with other Troponin methodologies. Previous Alert Value Reported Performed By: #### T ROPI ####[facility] HospitalUdacityMpzpretbzfog75[address] [place] [address] lab Director: Jose Miguel Davis MD Troponin I.cardiac High sensitivity method [Mass/Vol] 83 ng/L Critically high 0 - 14 ng/L [facility] Troponin, High Sens 83 ng/L Critically high 0-14 [facility] Comment on above: Result Comment: High Sensitivity Troponin values cannot be compared with other Troponin methodologies. Previous Alert Value Reported Performed By: #### T YSOHI, Ilan ####[facility] [address]sh[address] [place], [place] [id number] lab Director: Jose Miguel Davis MD Interpretation and review of laboratory results Abnormal [facility] Troponin I.cardiac High sensitivity method [Mass/Vol] 90 ng/L Critically high 0 - 14 ng/L [facility] Troponin, High Sens 90 ng/L Critically high 0-14 [facility] Comment on above: Result Comment: High Sensitivity Troponin values cannot be compared with other Troponin methodologies. Previous Alert Value Reported Performed By: #### T YOSHI ####[facility] [address] [place], [place] [id number] lab Director: Jose Miguel Davis MD Troponin I.cardiac High sensitivity method [Mass/Vol] 101 ng/L Critically high 0 - 14 ng/L [facility] Troponin, High Sens 101 ng/L Critically high 0-14 [facility] Comment on above: Result Comment: High Sensitivity Troponin values cannot be compared with other Troponin methodologies. Previous Alert Value Reported Performed By: #### C DP, MG, TROPI, CMPX, LACTIC ####[facility] [address] [place], [place] [id number] lab Director: Jose Miguel Davis MD Basic Metabolic Panel 02-06 Anion gap [Moles/Vol] 14 mmol/L 9 - 16 mmol/L [facility] Calcium [Mass/Vol] 8.4 mg/dL Low 8.6 - 10. 4 mg/dL [facility] Chloride [Moles/Vol] 102 mmol/L 98 - 10 7 mmol/L [facility] CO2 [Moles/Vol] 24 mmol/L 20 - 31 mmol/L [facility] Creatinine [Mass/Vol] 1.7 mg/dL High 0.6 - 0.9 mg/dL [facility] Est, Glom Filt Rate 31 Low - PINF [facility] Glucose [Mass/Vol] 205 mg/dL High 74 - 99 mg/dL [facility] Interpretation and review of laboratory results Abnormal [facility] Potassium [Moles/Vol] 3.4 mmol/L Low 3.7 - 5.3 mmol/L [facility] Sodium [Moles/Vol] 140 mmol/L 136 - 145 mmol/L [facility] Urea nitrogen [Mass/Vol] 57 mg/dL High 8 - 23 mg/dL [facility] Basic Metabolic Profon 03-03 Anion gap [Moles/Vol] 14 mmol/L Normal 9-16 [facility] Comment on above: Performed By: #### B MP ####[facility] [address] [place] [address] Lab Director: Jose Miguel Davis MD Calcium [Mass/Vol] 8.4 mg/dL Low 8.6-10.4 [facility] Comment on above: Performed By: #### B MP ####[facility] [address] [place] [address] Lab Director: Jose Miguel Davis MD Chloride [Moles/Vol] 102 mmol/L Normal 98-107 [facility] Comment on above: Performed By: #### B MP ####[facility] [address]mcrvhcreikd5[address] [place] [address] Lab Director: Jose Miguel Davis MD CO2 [Moles/Vol] 24 mmol/L Normal 20-31 [facility] Comment on above: Performed By: #### B MP ####[facility] [address] [place] [address] Lab Director: Jose Miguel Davis MD Creatinine [Mass/Vol] 1.7 mg/dL High 0.6-0.9 [facility] Comment on above: Performed By: #### B MP ####[facility] [address]ns5856 [place] [address] Lab Director: Jose Miguel Davis MD GFR/1.73 sq M.predicted among non-blacks MDRD (S/P/Bld) [Vol rate/Area] 31 mL/min/{1.73_m2} Low >60 [facility] Comment on above: Result Comment: [...] renal tubular secretion. Performed By: #### B MP ####[address] [address] Lab Director: Jose Miguel Davis MD Glucose [Mass/Vol] 205 mg/dL High 74-99 [facility] Comment on above: Performed By: #### B MP ####[address] [address] Lab Director: Jose Miguel Davis MD Potassium [Moles/Vol] 3.4 mmol/L Low 3.7-5.3 [facility] Comment on above: Result Comment: Spec imen hemolysis has exceeded the interference as defined by Ranjith. Value may be falsely increased. Suggest recollection if clinically indicated. Performed By: #### B MP ####[address] [address] Lab Director: Jose Miguel Davis MD Sodium [Moles/Vol] 140 mmol/L Normal 136-145 [facility] Comment on above: Performed By: #### B MP ####[address] [address] Lab Director: Jose Miguel Davis MD Urea nitrogen [Mass/Vol] 57 mg/dL High 8-23 [facility] Comment on above: Performed By: #### B MP ####[facility] [address]chs[address] [place] [address] lab Director: Jose Miguel Davis MD CBCon 03-03-2025 Erythrocyte distribution width (RBC) [Ratio] 15.8 % High 11.8 - 14.4 % [facility] Hematocrit (Bld) [Volume fraction] 41.8 % 36.3 - 47.1 % [facility] Hemoglobin (Bld) [Mass/Vol] 12.8 g/dL 11.9 - 15.1 g/dL [facility] Interpretation and review of laboratory results Abnormal [facility] MCH (RBC) [Entitic mass] 27.9 pg 25.2 - 33.5 pg [facility] MCHC (RBC) [Mass/Vol] 30.6 g/dL 28.4 - 34.8 g/dL [facility] MCV (RBC) [Entitic vol] 91.3 fL 82.6 - 102.9 fL [facility] Nucleated RBC/100 WBC (Bld) [Ratio] 0.2 % High 0.0 per 100 WBC [facility] Platelet mean volume (Bld) [Entitic vol] 10.5 fL 8.1 - 13.5 fL [facility] Platelets (Bld) [#/Vol] 189 10*3/uL [facility] RBC (Bld) [#/Vol] 4.58 10*6/uL 3.95 - 5.1 1 m/uL [facility] WBC other (Bld) [#/Vol] 12.6 High [facility] Erythrocyte distribution width (RBC) [Ratio] 15.8 % High 11.8-14.4 [facility] Comment on above: Performed By: #### C P, CBC ####[facility] [address]ixg[address] [place], [place] [id number] lab Director: Jose Miguel Davis MD Hematocrit (Bld) [Volume fraction] 41.8 % Normal 36.3-47.1 [facility] Comment on above: Performed By: #### C P, CBC ####[facility] [address]3117 [place] [address] Lab Director: Jose Miguel Davis MD Hemoglobin (Bld) [Mass/Vol] 12.8 g/dL Normal 11.9-15.1 [facility] Comment on above: Performed By: #### C P, CBC ####[facility] [address]8827 [place] [address] Lab Director: Jose Miguel Davis MD MCH (RBC) [Entitic mass] 27.9 pg Normal 25.2-33.5 [facility] Comment on above: Performed By: #### C P, CBC ####[address] [address] Lab Director: Jose Miguel Davis MD MCHC (RBC) [Mass/Vol] 30.6 g/dL Normal 28.4-34.8 [facility] Comment on above: Performed By: #### C P, CBC ####[address] [address] Lab Director: Jose Miguel Davis MD MCV (RBC) [Entitic vol] 91.3 fL Normal 82.6-102.9 [facility] Comment on above: Performed By: #### C P, CBC ####[address] [address] Lab Director: Jose Miguel Davis MD NRBC Automated 0.2 per 100 WBC High 0.0 [facility] Comment on above: Performed By: #### C P, CBC ####[facility] [address] [place] [address] Lab Director: Jose Miguel Davis MD Platelet mean volume (Bld) [Entitic vol] 10.5 fL Normal 8.1-13.5 [facility] Comment on above: Performed By: #### C P, CBC ####[facility] [address] [place] [address] Lab Director: Jose Miguel Davis MD Platelets (Bld) [#/Vol] 189 10*3/uL Normal 138-453 [facility] Comment on above: Performed By: #### C P, CBC ####[facility] [address]wiwu[address]121 [place] [address] Lab Director: Jose Miguel Davis MD RBC (Bld) [#/Vol] 4.58 10*6/uL Normal 3.95-5.11 [facility] Comment on above: Performed By: #### C P, CBC ####[facility] [address] [place] [address] Lab Director: Jose Miguel Davis MD WBC (Bld) [#/Vol] 12.6 10*3/uL High 3.5-11.3 [facility] Comment on above: Performed By: #### C P, CBC ####[facility] [address] [place] [address] Lab Director: Jose Miguel Davis MD CBC with Auto Differentialon 03-03-2025 Basophils (Bld) [#/Vol] 0 10*3/uL [facility] Basophils/100 WBC (Bld) 0 % 0 - 2 % [facility] Eosinophils (Bld) [#/Vol] 0 10*3/uL [facility] Eosinophils/100 WBC (Bld) 0 % Low 1 - 4 % [facility] Erythrocyte distribution width (RBC) [Ratio] 15.7 % High 11.8 - 14.4 % [facility] Hematocrit (Bld) [Volume fraction] 41.7 % 36.3 - 47.1 % [facility] Hemoglobin (Bld) [Mass/Vol] 12.6 g/dL 11.9 - 15.1 g/dL [facility] Immature granulocytes (Bld) [#/Vol] 0.12 10*3/uL [facility] Immature granulocytes/100 WBC (Bld) 1 % High 0 [facility] Interpretation and review of laboratory results Abnormal [facility] Lymphocytes/100 WBC (Bld) 6 % Low 24 - 44 % [facility] Lymphocytes/100 WBC (Bld) 0.7 % Low [facility] MCH (RBC) [Entitic mass] 27.8 pg 25.2 - 33.5 pg [facility] MCHC (RBC) [Mass/Vol] 30.2 g/dL 28.4 - 34.8 g/dL [facility] MCV (RBC) [Entitic vol] 92.1 fL 82.6 - 102.9 fL [facility] Monocytes/100 WBC (Bld) 7 % 1 - 7 % [facility] Monocytes/100 WBC (Bld) 0.82 % High [facility] Morphology Kevin (Bld) [Interp] ANISOCYTOSIS PRESENT [facility] Neutrophils/100 WBC (Bld) 86 % High 36 - 66 % [facility] Nucleated RBC/100 WBC (Bld) [Ratio] 0.2 % High 0.0 per 100 WBC [facility] Platelet mean volume (Bld) [Entitic vol] 10.3 fL 8.1 - 13.5 fL [facility] Platelets (Bld) [#/Vol] 167 10*3/uL [facility] RBC (Bld) [#/Vol] 4.53 10*6/uL 3.95 - 5.1 1 m/uL [facility] Segmented neutrophils/100 WBC (Bld) 10.06 % High [facility] WBC other (Bld) [#/Vol] 11.7 High [facility] CBC with Diffon 03-03-2025 Abs. Basophil 0.00 k/uL Normal 0.0-0.2 [facility] Comment on above: Performed By: #### C MPX, PT, CDP, MG ####[address] [place] [address] lab Director: Jose Miguel Davis MD Abs.Imm.Granulocyte 0.12 k/uL Normal 0.00-0.30 [facility] Comment on above: Performed By: #### C MPX, PT, CDP, MG ####[facility] [address] [place], [place] [address])[phone] Director: Jose Miguel Davis MD Abs.Neutrophil (Seg) 10.06 k/uL High 1.8-7.7 [facility] Comment on above: Performed By: #### C MPX, PT, CDP, MG ####[facility] [address] [place], [place] [address])[phone] Director: Jose Miguel Davis MD Basophils/100 WBC (Bld) 0 % Normal 0-2 [facility] Comment on above: Performed By: #### C MPX, PT, CDP, MG ####[facility] [address] [place], [place] [address])[phone] Director: Jose Miguel Davis MD Eosinophils (Bld) [#/Vol] 0.00 10*3/uL Normal 0.0-0.4 [facility] Comment on above: Performed By: #### C MPX, PT, CDP, MG ####[facility] [address] [place] [address])[phone] Director: Jose Miguel Davis MD Eosinophils/100 WBC (Bld) 0 % Low 1-4 [facility] Comment on above: Performed By: #### C MPX, PT, CDP, MG ####[facility] [address] [place], [place] [address])[phone] Director: Jose Miguel Davis MD Immature granulocytes/100 WBC (Bld) 1 % High 0 [facility] Comment on above: Performed By: #### C MPX, PT, CDP, MG ####[facility] [address]uz[address] [place], [place] [address])[phone] Director: Jose Miguel Davis MD Lymphocytes (Bld) [#/Vol] 0.70 10*3/uL Low 1.0-4.8 [facility] Comment on above: Performed By: #### C MPX, PT, CDP, MG ####[facility] [address] [place], [place] [id number])[phone] Director: Jose Miguel Davis MD Lymphocytes/100 WBC (Bld) 6 % Low 24-44 [facility] Comment on above: Performed By: #### C MPX, PT, CDP, MG ####[facility] [address] [place], [place] [address])[phone] Director: Jose Miguel Davis MD Monocytes (Bld) [#/Vol] 0.82 10*3/uL High 0.1-0.8 [facility] Comment on above: Performed By: #### C MPX, PT, CDP, MG ####[facility] [address] [place], [place] [address])[phone] Director: Jose Miguel Davis MD Monocytes/100 WBC (Bld) 7 % Normal 1-7 [facility] Comment on above: Performed By: #### C MPX, PT, CDP, MG ####[facility] [address] [place], [place] [address])[phone] Director: Jose Miguel Davis MD Morphology Kevin (Bld) [Interp] ANISOCYTOSIS PRESENT Normal [facility] Comment on above: Performed By: #### C MPX, PT, CDP, MG ####[facility] [address]xmszbnr[address] [place], [place] [address])[phone] Director: Jose Miguel Davis MD Neutrophil (Seg) 86 % High 36-66 [facility] Comment on above: Performed By: #### C MPX, PT, CDP, MG ####[facility] [address] [place], [place] [address])[phone] Director: Jose Miguel Davis MD Erythrocyte distribution width (RBC) [Ratio] 15.7 % High 11.8-14.4 [facility] Comment on above: Performed By: #### C MPX, PT, CDP, MG ####[facility] [address], [place] [address])[phone] Director: Jose Miguel Davis MD Hematocrit (Bld) [Volume fraction] 41.7 % Normal 36.3-47.1 [facility] Comment on above: Performed By: #### C MPX, PT, CDP, MG ####[facility] [address] [place] [address])[phone] Director: Jose Miguel Davis MD Hemoglobin (Bld) [Mass/Vol] 12.6 g/dL Normal 11.9-15.1 [facility] Comment on above: Performed By: #### C MPX, PT, CDP, MG ####[address] [address])[phone] Director: Jose Miguel Davis MD MCH (RBC) [Entitic mass] 27.8 pg Normal 25.2-33.5 [facility] Comment on above: Performed By: #### C MPX, PT, CDP, MG ####[place], [place] [address])[phone] Director: Jose Miguel Davis MD MCHC (RBC) [Mass/Vol] 30.2 g/dL Normal 28.4-34.8 [facility] Comment on above: Performed By: #### C MPX, PT, CDP, MG ####[place], [place] [address])[phone] Director: Jose Miguel Davis MD MCV (RBC) [Entitic vol] 92.1 fL Normal 82.6-102.9 [facility] Comment on above: Performed By: #### C MPX, PT, CDP, MG ####[facility] [address] [place] [address])[phone] Director: Jose Miguel Davis MD NRBC Automated 0.2 per 100 WBC High 0.0 [facility] Comment on above: Performed By: #### C MPX, PT, CDP, MG ####[facility] [address] [place], [place] [id number])[phone] Director: Jose Miguel Davis MD Platelet mean volume (Bld) [Entitic vol] 10.3 fL Normal 8.1-13.5 [facility] Comment on above: Performed By: #### C MPX, PT, CDP, MG ####[facility] [address] [place], [place] [address])[phone] Director: Jose Miguel Davis MD Platelets (Bld) [#/Vol] 167 10*3/uL Normal 138-453 [facility] Comment on above: Performed By: #### C MPX, PT, CDP, MG ####[facility] [address] [place], [place] [address])[phone] Director: Jose Miguel Davis MD RBC (Bld) [#/Vol] 4.53 10*6/uL Normal 3.95-5.11 [facility] Comment on above: Performed By: #### C MPX, PT, CDP, MG ####[facility] [address] [place], [place] [address])[phone] Director: Jose Miguel Davis MD WBC (Bld) [#/Vol] 11.7 10*3/uL High 3.5-11.3 [facility] Comment on above: Performed By: #### C MPX, PT, CDP, MG ####[facility] [address] [place], [place] [id number])[phone] Director: Jose Miguel Davis MD Comp Metabolic Pr/rfx MGon 0 4- Albumin [Mass/Vol] 2.4 g/dL Low 3.5-5.2 [facility] Comment on above: Performed By: #### C MPX, PT, CDP, MG ####[facility] [address] [place], [place] [address])[phone] Director: Jose Miguel Davis MD Albumin/Glob Ratio 0.7 Low 1.0-2.5 [facility] Comment on above: Performed By: #### C MPX, PT, CDP, MG ####[facility] [address]zcx2476 [place], [place] [id number])[phone] Director: Jose Miguel Davis MD Alkaline Phos 61 U/L Normal 35-104 [facility] Comment on above: Performed By: #### C MPX, PT, CDP, MG ####[facility] [address]xs[address] [place], [place] [id number])[phone] Director: Jose Miguel Davis MD ALT [Catalytic activity/Vol] 36 U/L High 10-35 [facility] Comment on above: Performed By: #### C MPX, PT, CDP, MG ####[facility] [address] [place], [place] [address]19)[phone] Director: Jose Miguel Davis MD Anion gap [Moles/Vol] 17 mmol/L High 9-16 [facility] Comment on above: Performed By: #### C MPX, PT, CDP, MG ####[facility] [address]rxx[address] [place], [place] [id number])[phone] Director: Jose Miguel Davis MD AST [Catalytic activity/Vol] 30 U/L Normal 10-35 [facility] Comment on above: Result Comment: Spec imen hemolysis has exceeded the interference as defined by Ranjith. Value may be falsely increased. Suggest recollection if clinically indicated. Performed By: #### C MPX, PT, CDP, MG ####[facility] [address] [place], [place] [id number])[phone] Director: Jose Miguel Davis MD Bilirubin [Mass/Vol] 1.4 mg/dL High 0.0-1.2 [facility] Comment on above: Performed By: #### C MPX, PT, CDP, MG ####[facility] I[address]tdakp37[address] [place], [place] [id number])[phone] Director: Jose Miguel Davis MD Calcium [Mass/Vol] 8.3 mg/dL Low 8.6-10.4 [facility] Comment on above: Performed By: #### C MPX, PT, CDP, MG ####[facility] Z[address]vbnmgqpy0422 [place] [address] Lab Director: Jose Miguel Davis MD Chloride [Moles/Vol] 100 mmol/L Normal 98-107 [facility] Comment on above: Performed By: #### C MPX, PT, CDP, MG ####[facility] [address]kelprcul4815 [place] [address] Lab Director: Jose Miguel Davis MD CO2 [Moles/Vol] 21 mmol/L Normal 20-31 [facility] Comment on above: Performed By: #### C MPX, PT, CDP, MG ####[address] [address] Lab Director: Jose Miguel Davis MD Creatinine [Mass/Vol] 2.1 mg/dL High 0.6-0.9 [facility] Comment on above: Performed By: #### C MPX, PT, CDP, MG ####[address] [address] Lab Director: Jose Miguel Davis MD GFR/1.73 sq M.predicted among non-blacks MDRD (S/P/Bld) [Vol rate/Area] 24 mL/min/{1.73_m2} Low >60 [facility] Comment on above: Result Comment: [...] affects renal tubular secretion. Performed By: #### C MPX, PT, CDP, MG ####[facility] [address]ie39[address] [place] [address] Lab Director: Jose Miguel Davis MD Glucose [Mass/Vol] 219 mg/dL High 74-99 [facility] Comment on above: Performed By: #### C MPX, PT, CDP, MG ####[facility] [address] [place], [place] [id number])[phone] Director: Jose Miguel Davis MD Potassium [Moles/Vol] 3.1 mmol/L Low 3.7-5.3 [facility] Comment on above: Result Comment: Spec imen hemolysis has exceeded the interference as defined by Ranjith. Value may be falsely increased. Suggest recollection if clinically indicated. Performed By: #### C MPX, PT, CDP, MG ####[facility] M[address]cc[address]mxq1912 [place], [place] [id number])[phone] Director: Jose Miguel Davis MD Protein [Mass/Vol] 5.8 g/dL Low 6.6-8.7 [facility] Comment on above: Performed By: #### C MPX, PT, CDP, MG ####[facility] [address] [place], [place] 71975419)[phone] Director: Jose Miguel Davis MD Sodium [Moles/Vol] 138 mmol/L Normal 136-145 [facility] Comment on above: Performed By: #### C MPX, PT, CDP, MG ####[facility] [address]pl[address]ffuf[address]3467 [place], [place] [id number])[phone] Director: Jose Miguel Davis MD Urea nitrogen [Mass/Vol] 63 mg/dL High 8-23 [facility] Comment on above: Performed By: #### C MPX, PT, CDP, MG ####[facility] [address]udve[address] [place], [place] [id number])[phone] Director: Jose Miguel Davis MD Comp Metabolic Profon 2024 Albumin [Mass/Vol] 3.1 g/dL Low 3.5-5.2 [facility] Comment on above: Performed By: #### C P, CBC ####[facility] [address]ts[address]rap[address]ob[address]17[address] [place], [place] [id number])[phone] Director: Jose Miguel Davis MD Albumin/Glob Ratio 1.2 Normal 1.0-2.5 [facility] Comment on above: Performed By: #### C P, CBC ####[facility] Ajz[address]ux[address]ftq54[address] [place], [place] [id number])[phone] Director: Jose Miguel Davis MD Alkaline Phos 63 U/L Normal 35-104 [facility] Comment on above: Performed By: #### C P, CBC ####[facility] [address] [place], [place] [id number])[phone] Director: Jose Miguel Davis MD ALT [Catalytic activity/Vol] 46 U/L High 10-35 [facility] Comment on above: Performed By: #### C P, CBC ####[facility] [address] [place] [address] [id number])[phone] Director: Jose Miguel Davis MD Anion gap [Moles/Vol] 20 mmol/L High 9-16 [facility] Comment on above: Performed By: #### C P, CBC ####[facility] [address]lhft[address] [place], [place] [id number])[phone] Director: Jose Miguel Davis MD AST [Catalytic activity/Vol] 33 U/L Normal 10-35 [facility] Comment on above: Performed By: #### C P, CBC ####[facility] [address]azxqghjpqa16[address] [place], [place] [id number])[phone] Director: Jose Miguel Davis MD Bilirubin [Mass/Vol] 1.6 mg/dL High 0.0-1.2 [facility] Comment on above: Performed By: #### C P, CBC ####[facility] [address]fc[address]zgfrcl6260 [place], [place] [id number])[phone] Director: Jose Miguel Davis MD Calcium [Mass/Vol] 8.4 mg/dL Low 8.6-10.4 [facility] Comment on above: Performed By: #### C P, CBC ####[facility] [address] [place], [place] [id number])[phone] Director: Jose Miguel Davis MD Chloride [Moles/Vol] 97 mmol/L Low 98-107 [facility] Comment on above: Performed By: #### C P, CBC ####[facility] F[address]la[address]h4147 [place], [place] [id number])[phone] Director: Jose Miguel Davis MD CO2 [Moles/Vol] 24 mmol/L Normal 20-31 [facility] Comment on above: Performed By: #### C P, CBC ####[facility] [address] [place] [address] [id number])[phone] Director: Jose Miguel Davis MD Creatinine [Mass/Vol] 2.2 mg/dL High 0.6-0.9 [facility] Comment on above: Performed By: #### C P, CBC ####[address] [address])[phone] Director: Jose Miguel Davis MD GFR/1.73 sq M.predicted among non-blacks MDRD (S/P/Bld) [Vol rate/Area] 23 mL/min/{1.73_m2} Low >60 [facility] Comment on above: Result Comment: [...] affects renal tubular secretion. Performed By: #### C P, CBC ####[address] [id number])[phone] Director: Jose Miguel Davis MD Glucose [Mass/Vol] 224 mg/dL High 74-99 [facility] Comment on above: Performed By: #### C P, CBC ####[facility] [address] [place] [address] Lab Director: Jose Miguel Davis MD Potassium [Moles/Vol] 3.1 mmol/L Low 3.7-5.3 [facility] Comment on above: Result Comment: Spec imen hemolysis has exceeded the interference as defined by Ranjith. Value may be falsely increased. Suggest recollection if clinically indicated. Performed By: #### C P, CBC ####[facility] [address]ras[address]amwc6086 [place] [address] Lab Director: Jose Miguel Davis MD Protein [Mass/Vol] 5.6 g/dL Low 6.6-8.7 [facility] Comment on above: Performed By: #### C P, CBC ####[facility] [address]wtqzm3824 [place] [address] Lab Director: Jose Miguel Davis MD Sodium [Moles/Vol] 141 mmol/L Normal 136-145 [facility] Comment on above: Performed By: #### C P, CBC ####[facility] [address]utmp[address] [place] [address] Lab Director: Jose Miguel Davis MD Urea nitrogen [Mass/Vol] 60 mg/dL High 8-23 [facility] Comment on above: Performed By: #### C P, CBC ####[facility] [address] [place], [place] [phone] Director: Jose Miguel Davis MD Comprehensive Metabolic Pane [facility] 03-03-2025 Albumin [Mass/Vol] 3.1 g/dL Low 3.5 - 5.2 g/dL [facility] Albumin/Globulin [Mass ratio] 1.2 {ratio} 1.0 - 2.5 [facility] ALP [Catalytic activity/Vol] 63 U/L 35 - 104 U/L [facility] ALT [Catalytic activity/Vol] 46 U/L High 10 - 35 U/L [facility] Anion gap [Moles/Vol] 20 mmol/L High 9 - 16 mmol/L [facility] AST [Catalytic activity/Vol] 33 U/L 10 - 35 U/L [facility] Bilirubin [Mass/Vol] 1.6 mg/dL High 0.0 - 1 .2 mg/dL [facility] Calcium [Mass/Vol] 8.4 mg/dL Low 8.6 - 10. 4 mg/dL [facility] Chloride [Moles/Vol] 97 mmol/L Low 98 - 10 7 mmol/L [facility] CO2 [Moles/Vol] 24 mmol/L 20 - 31 mmol/L [facility] Creatinine [Mass/Vol] 2.2 mg/dL High 0.6 - 0.9 mg/dL [facility] Est, Glom Filt Rate 23 Low - PINF [facility] Glucose [Mass/Vol] 224 mg/dL High 74 - 99 mg/dL [facility] Interpretation and review of laboratory results Abnormal [facility] Potassium [Moles/Vol] 3.1 mmol/L Low 3.7 - 5.3 mmol/L [facility] Protein [Mass/Vol] 5.6 g/dL Low 6.6 - 8.7 g/dL [facility] Sodium [Moles/Vol] 141 mmol/L 136 - 145 mmol/L [facility] Urea nitrogen [Mass/Vol] 60 mg/dL High 8 - 23 mg/dL [facility] Comprehensive Metabolic Pane l w/ Reflex to MGon 03-03-2025 Albumin [Mass/Vol] 2.4 g/dL Low 3.5 - 5.2 g/dL [facility] Albumin/Globulin [Mass ratio] 0.7 {ratio} Low 1.0 - 2.5 [facility] ALP [Catalytic activity/Vol] 61 U/L 35 - 104 U/L [facility] ALT [Catalytic activity/Vol] 36 U/L High 10 - 35 U/L [facility] Anion gap [Moles/Vol] 17 mmol/L High 9 - 16 mmol/L [facility] AST [Catalytic activity/Vol] 30 U/L 10 - 35 U/L [facility] Bilirubin [Mass/Vol] 1.4 mg/dL High 0.0 - 1 .2 mg/dL [facility] Calcium [Mass/Vol] 8.3 mg/dL Low 8.6 - 10. 4 mg/dL [facility] Chloride [Moles/Vol] 100 mmol/L 98 - 10 7 mmol/L [facility] CO2 [Moles/Vol] 21 mmol/L 20 - 31 mmol/L [facility] Creatinine [Mass/Vol] 2.1 mg/dL High 0.6 - 0.9 mg/dL [facility] Est, Glom Filt Rate 24 Low - PINF [facility] Glucose [Mass/Vol] 219 mg/dL High 74 - 99 mg/dL [facility] Interpretation and review of laboratory results Abnormal [facility] Potassium [Moles/Vol] 3.1 mmol/L Low 3.7 - 5.3 mmol/L [facility] Protein [Mass/Vol] 5.8 g/dL Low 6.6 - 8.7 g/dL [facility] Sodium [Moles/Vol] 138 mmol/L 136 - 145 mmol/L [facility] Urea nitrogen [Mass/Vol] 63 mg/dL High 8 - 23 mg/dL [facility] Glucose,Whole Bloodon 2024 Glucose [Mass/Vol] 184 mg/dL High 65-105 [facility] Glucose [Mass/Vol] 183 mg/dL High 65-105 [facility] Lactic Acidon 03-03-2025 Interpretation and review of laboratory results Abnormal [facility] Lactic Acid, Whole Blood 2.3 mmol/L High 0.7 - 2.1 mmol/L [facility] Lactic Acid,Whole Bl 2.3 mmol/L High 0.7-2.1 [facility] Comment on above: Performed By: #### L ACTIC ####[address] [place] [address] lab Director: Jose Miguel Davis MD Lipaseon 03-03-2025 Lipase [Catalytic activity/Vol] 23 U/L 13 - 60 U/L [facility] Lipase [Catalytic activity/Vol] 23 U/L Normal 13-60 [facility] Comment on above: Performed By: #### T ROPI, LIP ####[facility] [address] [place] [address] lab Director: Jose Miguel Davis MD MR Abdomen WO contraston MHPN RIS CONSOLIDATED PN RIS CONSOLIDATED [facility] Radiology Study observation (narrative) [facility] MR Abdomen WO contrastOrdere d By: Joby Hickey on 03-03-2025 [facility] Work Phone: MRI ABDOMEN WO CONTRAST MRCP on 03-03-2025 MRI ABDOMEN WO CONTRAST MRCP EXAMINATION: MRI OF THE ABDOMEN WITHOUT CONTRAST AND MRCP 03/03/2025 6:03 pm TECHNIQUE: Multiplanar multisequence MRI of the abdomen was performed without the administration of intravenous contrast. After initial T2 axial and coronal images, thick slab, thin slab and 3D coronal MRCP sequences were obtained without the administration of intravenous contrast. MIP images are provided for review. COMPARISON: 03/03/2025 HISTORY: ORDERING SYSTEM PROVIDED HISTORY: assess for biliary pathology, concerned for duodenal perforatin TECHNOLOGIST PROVIDED HISTORY: assess for biliary pathology, concerned for duodenal perforatin Reason for Exam: assess for biliary pathology, concerned for duodenal perforatin FINDINGS: Lower chest: Unremarkable. Organs: Liver is normal in contour and signal. Moderate wall thickening irregularity with small loculated pericholecystic fluid. There is question of discontinuity of the gallbladder wall at the fundus. No biliary dilatation. Cystic pancreatic lesions measuring up to 0.9 cm. No main pancreatic ductal dilatation. Adrenals, kidneys, spleen, vasculature are unremarkable by noncontrast technique. GI/Bowel: Visualized bowel is nondilated without wall thickening. Peritoneum/Retroperitoneu m: No free air, organized fluid collection, lymphadenopathy. Bones/Soft Tissues: Mild degenerative disc disease. IMPRESSION: 1. Findings suspicious for perforated acute cholecystitis. 2. 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 Recommend follow-up pancreas protocol MRI in 2 years. Interpreted by: Joby Hickey MD Signed by: Joby Hickey MD 03/03/25 Final result Normal [facility] MRSA, DNA, Nasalon Specimen Description .NASAL SWAB Normal [facility] Comment on above: Performed By: #### M RSANO ####[facility] [address] [place], [place] [phone] lab Director: Jose Miguel Davis MD Magnesiumon 03-03-2025 Magnesium [Mass/Vol] 2.2 mg/dL 1.6 - 2 .4 mg/dL [facility] Magnesium [Mass/Vol] 2.2 mg/dL Normal 1.6-2.4 [facility] Comment on above: Performed By: #### C MPX, PT, CDP, MG ####[facility] [address] [place], [place] [id number] lab Director: Jose Miguel Davis MD No Panel Informationon 03-03 [facility] POC Glucose Fingerstickon Glucose [Mass/Vol] 184 mg/dL High 65 - 105 mg/dL [facility] Interpretation and review of laboratory results Abnormal [facility] Glucose [Mass/Vol] 183 mg/dL High 65 - 105 mg/dL [facility] Interpretation and review of laboratory results Abnormal [facility] PTon 03-03-2025 INR Coag (PPP) [Relative time] 1.5 {INR} Normal [facility] Comment on above: Result Comment: Therapeutic Range: Moderate Anticoagulant Intensity: INR = 2.0-3.0 High Anticoagulant Intensity: INR = 2.5-3.5 Performed By: #### C MPX, PT, CDP, MG ####[facility] [address] [place], [place] [id number] lab Director: Jose Miguel Davis MD PT Coag (PPP) [Time] 18.2 s High 11.7-14.9 [facility] Comment on above: Performed By: #### C MPX, PT, CDP, MG ####[employer] [address] [place] [address] lab Director: Jose Miguel Davis MD Portable XR Chest AP single viewon 03-03-2025 MHPN RIS CONSOLIDATED MHPN RIS CONSOLIDATED [facility] Radiology Study observation (narrative) [facility] Portable XR Chest AP single viewOrdered By: rOlando Carballo on 03-03-2025 [facility] Work Phone: [employer]INRon 03-03-2025 INR Coag (PPP) [Relative time] 1.5 {INR} [facility] Interpretation and review of laboratory results Abnormal [facility] PT Coag (PPP) [Time] 18.2 s High [facility] TYPE AND SCREENon 03-03-2025 ABO and Rh group Nom (Bld) Blood group A Rh(D) positive [facility] Arm Band Number BE [id number] [facility] Blood Bank Sample Expiration 03/06/2025,2359 [facility] Blood group antibodies identified Nom Negative [facility] Troponinon 03-03-2025 Interpretation and review of laboratory results Abnormal [facility] Troponin I.cardiac High sensitivity method [Mass/Vol] 108 ng/L Critically high 0 - 14 ng/L [facility] Troponin, High Sens 108 ng/L Critically high 0-14 [facility] Comment on above: Result Comment: High Sensitivity Troponin values cannot be compared with other Troponin methodologies. Performed By: #### T ROPI, LIP ####[employer] [address] [place] [address] lab Director: Jose Miguel Davis MD Type + Screenon 03-03-2025 Type + Screen Sample Expiration 03/06/2025,2359 Arm Band Number BE [id number] ABO/Rh(D) A POSITIVE Antibody Screen NEGATIVE Normal [facility] Comment on above: Performed By: #### T YS #### [email or web address] [address] [place], [place] [id number] Eradicator: Jose Miguel Davis MD US ABDOMEN LIMITEDon 025 US ABDOMEN LIMITED EXAMINATION: RIGHT UPPER QUADRANT ULTRASOUND 03/03/2025 6:23 pm COMPARISON: Correlation concurrent MRCP HISTORY: Acute cholecystitis. FINDINGS: LIVER: Normal echogenicity without discrete lesion. No intrahepatic biliary ductal dilatation. BILIARY SYSTEM: Distended gallbladder contains sludge and stones. Mild gallbladder wall thickening with pericholecystic fluid. Negative sonographic Henley's sign. The extrahepatic bile duct is within normal limits, measuring 5 mm. RIGHT KIDNEY: Unremarkable. PANCREAS: Not well visualized. OTHER: No ascites seen. IMPRESSION: Findings described above could represent acute cholecystitis as reported on concurrent MRCP although sonographic Henley sign is reportedly negative. Consider correlation with CT given the suspected perforation on MRCP. Interpreted by: Columba Wyatt MD Signed by: Columba Wyatt MD 03/03/25 Final result Normal [facility] US Abdomen limitedon 025 MHPN RIS CONSOLIDATED MHPN RIS CONSOLIDATED [facility] Radiology Study observation (narrative) [facility] US Abdomen limitedOrdered By : Columba Wyatt on 03-03-2025 [facility] Work Phone: Urinalysis w/ Microon 2024 Bacteria None Normal NONE [facility] Comment on above: Performed By: #### U AMIC ####[employer] [address] [place] [address] Lab Director: Jose Miguel Davis MD Casts None Normal 0-2 [facility] Comment on above: Performed By: #### U AMIC ####[employer] [address] [place] [address] Lab Director: Jose Miguel Davis MD Epithelial cells LM Ql (Urine sed) 5 TO 10 Normal 0-5 [facility] Comment on above: Performed By: #### U AMIC ####[facility] [address] [place], [place] [phone] Director: Jose Miguel Davis MD Urine RBC's 5 TO 10 Normal 0-2 [facility] Comment on above: Performed By: #### U AMIC ####[facility] [place], [place] [phone] Director: Jose Miguel Davis MD Urine WBC's 20 TO 50 Normal 0-5 [facility] Comment on above: Performed By: #### U AMIC ####[address] [phone] Director: Jose Miguel Davis MD Bilirubin, SemiQt,Ur Negative Normal NEG [facility] Comment on above: Performed By: #### U AMIC ####[address] [phone] Director: Jose Miguel Davis MD Blood, Urine MODERATE Abnormal NEG [facility] Comment on above: Performed By: #### U AMIC ####[address] [phone] Director: Jose Miguel Dvais MD Clarity (U) Cloudy Abnormal CLEAR [facility] Comment on above: Performed By: #### U AMIC ####[address] [phone] Director: Jose Miguel Davis MD Color (U) Yellow Normal YEL [facility] Comment on above: Performed By: #### U AMIC ####[address] [phone] Director: Jose Miguel Davis MD Glucose Ql (U) Negative Normal NEG [facility] Comment on above: Performed By: #### U AMIC ####[address] [phone] Director: Jose Miguel Davis MD Ketones Ql (U) Negative Normal NEG [facility] Comment on above: Performed By: #### U AMIC ####[address] [place] [address] Lab Director: Jose Miguel Davis MD Leukocyte esterase Test strip Ql (U) MODERATE Abnormal NEG [facility] Comment on above: Performed By: #### U AMIC ####[address] [phone] Director: Jose Miguel Davis MD Nitrite,Ur Negative Normal NEG [facility] Comment on above: Performed By: #### U AMIC ####[address] [address] Lab Director: Jose Miguel Davis MD PH,Ur 5.5 Normal 5.0-8.0 [facility] Comment on above: Performed By: #### U AMIC ####[address] [address] Lab Director: Jose Miguel Davis MD Protein Ql (U) 2+ mg/dL Abnormal NEG [facility] Comment on above: Performed By: #### U AMIC ####[address] [phone] Director: Jose Miguel Davis MD Spec. [place],Ur 1.020 Normal 1.005-1.030 [facility] Comment on above: Performed By: #### U AMIC ####[facility] [place] [address] Lab Director: Jose Miguel Davis MD Urobilinogen,Ur Normal Normal 0.0-1.0 [facility] Comment on above: Performed By: #### U AMIC ####[address] [place] [address] Lab Director: Jose Miguel Davis MD Urinalysis with Microscopico n 04-27-2025 Bacteria LM Ql (Urine sed) None None [facility] Bilirubin Ql (U) Negative NEGATIVE [facility] Casts LM.LPF (Urine sed) [#/Area] None [facility] Clarity (U) Cloudy Abnormal [facility] Color (U) Yellow Yellow [facility] Epithelial cells LM.HPF (Urine sed) [#/Area] 5 TO 10 Bon [facility] Glucose Test strip (U) [Mass/Vol] Negative NEGATIVE mg/dL Bon [facility] Hemoglobin Auto test strip Ql (U) MODERATE Abnormal NEGATIVE [facility] Interpretation and review of laboratory results Abnormal [facility] Ketones (U) [Mass/Vol] Negative NEGATIVE mg/dL [facility] Leukocyte esterase Test strip Ql (U) MODERATE Abnormal NEGATIVE [facility] Nitrite Ql (U) Negative NEGATIVE [facility] pH (U) 5.5 [pH] 5.0 - 8.0 [facility] Protein (U) [Mass/Vol] 2+ Abnormal NEGATIVE mg/dL [facility] RBC LM.HPF (Urine sed) [#/Area] 5 TO 10 [facility] Specific gravity (U) [Rel density] 1.02 1.005 - 1.030 [facility] Urobilinogen Qn (U) Normal 0.0 - 1. 0 EU/dL [facility] WBC LM.HPF (Urine sed) [#/Area] 20 TO 50 [facility] Urine Cultureon 03-03-2025 Bacteria identified Cx Nom (U) <9,000 colonies/ml mixed bacterial skin contaminants 2 Days PERFORMED BY: [facility] [address] [place] [address] PATHOLOGIST TIE HACKER SANJUANITA GHOTRA M.D. Normal [facility] Comment on above: Performed By: #### C UU ####[facility] [address] [place] [address] [facility] XR CHEST PORTABLEon 03-03-20 25 XR CHEST PORTABLE EXAMINATION: ONE XRAY VIEW OF THE CHEST 03/03/2025 12:42 pm COMPARISON: None. HISTORY: ORDERING SYSTEM PROVIDED HISTORY: evalute lung window TECHNOLOGIST PROVIDED HISTORY: evalute lung window FINDINGS: Cardiomegaly. Pulmonary vascular congestion. Possible pulmonary edema. No focal consolidation. No pneumothorax. No pleural effusion. IMPRESSION: Findings suggest congestive heart failure Interpreted by: Orlando Carballo MD Signed by: Orlando Carballo MD 03/03/25 Final result Normal [facility] 36on 02-20-2025 36 Regarding CXR result from 02/19/2025: Per Ashanti roman CNP- please let her know CXR showed extra fluid intravascularly. Continue plan with increased dose of lasix. Spoke with patient and made her aware. She verbalized understanding. Normal [facility] 37on 02-19-2025 37 *Increase lasix to 8 0mg twice daily. *Limit fluid intake to 2000ml/day. Limit sodium intake, ideally less than 2000mg/day. *Continue monitoring daily weights. *Follow-up labs in 1 week. Normal [facility] Office Visiton 02-19-2025 Follow-up visit [id number] Renee Mcneal joleen Talavera 1950 F Date Provider Department Center 02/19/2025 ALFRED CARRINGTON Family History Problem Relation Age of Onset Coronary artery disease Father Heart attack Father Family Status - Relation Status Age at Mother Father Sister Alive Level of Service:63936 [place] OFFICE/OUTPATIENT ESTABLISHED MOD MDM 30 MIN Reason for Visit and Comments: Edema [[id number]] Congestive Heart Failure [127] Normal [facility] Office Visiton 01-17-2025 Follow-up visit [id number] Renee Mcneal joleen Talavera 1950 F Date Provider Department Center 01/17/2025 ALFRED CARRINGTON Family History Problem Relation Age of Onset Coronary artery disease Father Heart attack Father Family Status - Relation Status Age at Father Level of Service:10675 [place] OFFICE/OUTPATIENT ESTABLISHED LOW MDM 20 MIN Reason for Visit and Comments: Congestive Heart Failure [127] Hypertension [465308] Normal [facility] 37on 01-03-2025 37 *Will increase lasix for the next week: - Take 2 tablets in the AM, 1 tablet in the early evening for 2 days then take 1 tablet twice daily for 5 days. Normal [facility] Office Visiton 01-03-2025 Follow-up visit [id number] Renee Mcneal 1950 F Date Provider Department Center 01/03/2025 ALFRED CARRINGTON CARD [facility] Family History Problem Relation Age of Onset Coronary artery disease Father Heart attack Father Family Status - Relation Status Age at Father Level of Service:65157 [place] OFFICE/OUTPATIENT ESTABLISHED MOD MDM 30 MIN Reason for Visit and Comments: Congestive Heart Failure [127] Normal [facility] Alanine aminotransferase [En zymatic activity/volume] in Serum or PlasmaOrdered By: Rose Ohara on 12-11-2024 ALT [Catalytic activity/Vol] Alanine aminotransferase [Enzymatic activity/volume] in Serum or Plasma 7-52 [facility] Albumin [Mass/volume] in Ser um or Plasma by Bromocresol green (BCG) dye binding methoOrdered By: Rose Ohara on 12-11-2024 Albumin BCG dye [Mass/Vol] Albumin [Mass/volume] in Serum or Plasma by Bromocresol green (BCG) dye binding metho 3.5-5.7 [facility] Alkaline phosphatase [Enzyma tic activity/volume] in Serum or PlasmaOrdered By: Rose Ohara on 12-11-2024 ALP [Catalytic activity/Vol] Alkaline phosphatase [Enzymatic activity/volume] in Serum or Plasma 34-104 [facility] Aspartate aminotransferase [ Enzymatic activity/volume] in Serum or PlasmaOrdered By: Rose Ohara on 12-11-2024 AST [Catalytic activity/Vol] Aspartate aminotransferase [Enzymatic activity/volume] in Serum or Plasma Low 13-39 [facility] Basophils Auto (Bld) [#/Vol] Ordered By: Rose Ohara on 12-11-2024 Basophils (Bld) [#/Vol] Automated basophil count 0.0-0.2 [facility] Basophils/100 WBC Auto (Bld) Ordered By: Rose Ohara on 12-11-2024 Basophils/100 WBC (Bld) Automated basophil % . [facility] Bilirubin.total [Mass/volume ] in Serum or PlasmaOrdered By: Rose Ohara on 12-11-2024 Bilirubin [Mass/Vol] Bilirubin.total [Mass/volume] in Serum or Plasma High 0.3-1.0 [facility] CBC W Auto Differential pane l (Bld)on 12-11-2024 Basophils/100 WBC Manual cnt (Syn fld) 1.1 % . [facility] Eosinophils/100 WBC Manual cnt (Syn fld) 1.7 % . [facility] Interpretation and review of laboratory results Abnormal [facility] Lymphocytes/100 WBC Manual cnt (Syn fld) 19.4 % . [facility] MCHC (RBC) [Mass/Vol] 33.1 g/dL 32.0 - 35.0 g/dL [facility] Monocytes+Macrophages /100 WBC Manual cnt (Syn fld) 8.3 % . [facility] Neutrophils/100 WBC Manual cnt (Syn fld) 69.5 % . [facility] NRBC 0.1 /100{WBC} 0 - 0.5 /100{WBC} [facility] RBC LM.HPF (Urine sed) [#/Area] 4.95 10*6/uL 3.60 - 5.00 10*6/uL [facility] WBC LM.HPF (Urine sed) [#/Area] 8.4 10*3/uL 3.8 - 11.6 10*3/uL [facility] CT abdomen pelvis w conon CT abdomen pelvis w con [facility] [place] [address] CT Scan Report Signed Patient: Tosha Mcneal MR#: [id number] : 1950 Acct:[id number] Age/Sex: 73 / F ADM Date: 12/11/24 Loc: [facility]: [facility]: Rose Ohara MD Copies to: Rose Ohara MD Ordering Provider: Rose Ohara MD Date of Service: 12/11/24 CT/CT abdomen pelvis w con: melanoma rt upper arm ([id number]) CT/CT chest w con: melanoma rt upper [...] Kruse Jr., D.O.12/11/2024 2:37 PM Dictation Location: [place] [address] Transcribed By: [facility] 12/11/24 1437 Dictated By: Miki Kruse Jr, DO 12/11/24 1433 Signed By: 12/11/24 1437 Normal [facility] Calcium [Mass/volume] in Ser um or PlasmaOrdered By: Rose Ohara on 12-11-2024 Calcium [Mass/Vol] Calcium [Mass/volume ] in Serum or Plasma 8.6-10.3 [facility] Carbon dioxide, total [Moles /volume] in Serum or PlasmaOrdered By: Rose Ohara on 12-11-2024 CO2 [Moles/Vol] Carbon dioxide, tota l [Moles/volume] in Serum or Plasma 21.0-31.0 [facility] Chloride [Moles/volume] in S marlena or PlasmaOrdered By: Rose Ohara on 12-11-2024 Chloride [Moles/Vol] Chloride [Moles/vol ume] in Serum or Plasma 98-107 [facility] Complete Blood Count Auto Di ffon 12-11-2024 Basophils (Bld) [#/Vol] 0.1 10*3/uL Normal 0.0-0.2 [facility] Comment on above: Result Comment: PERF ORMED BY: [place] [address] PATHOLOGIST TIE HACKER SANJUANITA GHOTRA M.D. Performed By: #### C BC #### [address] Eosinophils (Bld) [#/Vol] 0.1 10*3/uL Normal 0.0-0.45 [facility] Comment on above: Performed By: #### C BC #### [address] Erythrocyte distribution width (RBC) [Ratio] 15.6 % High 11.9-15.3 [facility] Comment on above: Performed By: #### C BC #### [address] Hematocrit (Bld) [Volume fraction] 44.2 % Normal 34.0-46.4 [facility] Comment on above: Performed By: #### C BC #### [address] Hemoglobin (Bld) [Mass/Vol] 14.6 g/dL Normal 11.8-15.4 [facility] Comment on above: Performed By: #### C BC #### [address] Lymphocytes (Bld) [#/Vol] 1.6 10*3/uL Normal 1.00-4.8 [facility] Comment on above: Performed By: #### C BC #### [address] [place] [address] [place] MCH (RBC) [Entitic mass] 29.6 pg Normal 24.7-34.3 [facility] Comment on above: Performed By: #### C BC #### [address] MCV (RBC) [Entitic vol] 89.3 fL Normal 80-100 [facility] Comment on above: Performed By: #### C BC #### [address] Monocytes (Bld) [#/Vol] 0.7 10*3/uL Normal 0.0-0.8 [facility] Comment on above: Performed By: #### C BC #### [address] Neutrophils (Bld) [#/Vol] 5.8 10*3/uL Normal 1.8-7.7 [facility] Comment on above: Performed By: #### C BC #### [address] Platelet mean volume (Bld) [Entitic vol] 7.8 fL Normal 6.3-10.7 [facility] Comment on above: Performed By: #### C BC #### [address] Platelets (Bld) [#/Vol] 238 10*3/uL Normal 150-450 [facility] [facility] Comment on above: Performed By: #### C BC #### [address] WBC (Bld) [#/Vol] 8.4 10*3/uL Normal 3.8-11.6 [facility] Comment on above: Performed By: #### C BC #### [place] [address] [place] Basophils/100 WBC (Bld) 1.1 % Normal . [facility] Comment on above: Performed By: #### C BC #### [address] Eosinophils/100 WBC (Bld) 1.7 % Normal . [facility] Comment on above: Performed By: #### C BC #### [address] Lymphocytes/100 WBC (Bld) 19.4 % Normal . [facility] Comment on above: Performed By: #### C BC #### [address] Mean Corpuscular HGB Conc 33.1 g/dL Normal 32.0-35.0 [facility] Comment on above: Performed By: #### C BC #### [address] Monocytes/100 WBC (Bld) 8.3 % Normal . [facility] Comment on above: Performed By: #### C BC #### [address] Neutrophils/100 WBC (Bld) 69.5 % Normal . [facility] Comment on above: Performed By: #### C BC #### [address] NRBC% 0.1 /100{WBC} Normal 0-0.5 [facility] Comment on above: Performed By: #### C BC #### [address] RBC (Bld) [#/Vol] 4.95 10*6/uL Normal 3.60-5.00 [facility] Comment on above: Performed By: #### C BC #### [address] Comprehensive Metabolic Pane heladio 12-11-2024 Albumin [Mass/Vol] 4.6 g/dL Normal 3.5-5.7 [facility] Comment on above: Performed By: #### L BRODIE, CMP #### [address] Albumin/Globulin [Mass ratio] 1.6 {ratio} Normal [facility] Comment on above: Performed By: #### L BRODIE CMP #### [address] ALP [Catalytic activity/Vol] 54 U/L Normal 34-104 [facility] Comment on above: Performed By: #### L BRODIE, CMP #### [address] ALT [Catalytic activity/Vol] 13 U/L Normal 7-52 [facility] Comment on above: Performed By: #### L BRODIE, CMP #### [address] Anion gap [Moles/Vol] 16.7 mmol/L High 6.0-15.0 [facility] Comment on above: Performed By: #### L BRODIE, CMP #### [address] AST [Catalytic activity/Vol] 12 U/L Low 13-39 [facility] Comment on above: Performed By: #### L BRODIE, CMP #### [address] Bilirubin [Mass/Vol] 1.2 mg/dL High 0.3-1.0 [facility] Comment on above: Performed By: #### L BRODIE, CMP #### [address] Calcium [Mass/Vol] 9.8 mg/dL Normal 8.6-10.3 [facility] Comment on above: Performed By: #### L BRODIE, CMP #### [address] Chloride [Moles/Vol] 101 mmol/L Normal 98-107 [facility] Comment on above: Performed By: #### L BRODIE, CMP #### [address] CO2 [Moles/Vol] 26.3 mmol/L Normal 21.0-31.0 [facility] Comment on above: Performed By: #### L BRODIE, CMP #### [address] CREATININE CLR CALC PHARMACY 53.08 Normal [facility] Comment on above: Performed By: #### L BRODIE, CMP #### [address] Globulin (S) [Mass/Vol] 2.9 g/dL Normal [facility] Comment on above: Performed By: #### L BRODIE, CMP #### [address] Glucose [Mass/Vol] 245 mg/dL High 70-100 [facility] Comment on above: Random Glucose Refer ence Range is dependent on time and content of last meal. Glucose of more than 200 mg/dL in a nonstressed, ambulatory subject supports the diagnosis of Diabetes Mellitus. ADA recommended reference range Result Comment: [place] om Glucose Reference Range is dependent on time and content of last meal. Glucose of more than 200 mg/dL in a nonstressed, ambulatory subject supports the diagnosis of Diabetes Mellitus. ADA recommended reference range Performed By: #### L BRODIE, CMP #### [address] Protein [Mass/Vol] 7.5 g/dL Normal 6.4-8.9 [facility] Comment on above: Performed By: #### L BRODIE, CMP #### [address] Sodium [Moles/Vol] 140 mmol/L Normal 136-145 [facility] Comment on above: Performed By: #### L BRODIE, CMP #### [address] Urea nitrogen [Mass/Vol] 21 mg/dL Normal 7-25 [facility] Comment on above: Performed By: #### L BRODIE, CMP #### [address] Creatinine [Mass/Vol] 0.96 mg/dL Normal 0.60-1.20 [facility] Comment on above: Performed By: #### L BRODIE, CMP #### [place] [address] [place] GFR/1.73 sq M.predicted MDRD (S/P/Bld) [Vol rate/Area] mL/min/{1.73_m2} Normal [facility] Comment on above: Performed By: #### L BRODIE, CMP #### [place] [address] [facility] Potassium [Moles/Vol] 4.0 mmol/L Normal 3.5-5.1 [facility] Comment on above: Performed By: #### L , [facility] #### [facility] [address] [id number] [facility] Comprehensive metabolic pane heladio 12-11-2024 Creatinine (U) [Mass/Vol] 0.96 mg/dL 0.60 - 1.20 mg/dL [facility] ESTIMATED GFR mL/Min [facility] Interpretation and review of laboratory results Abnormal [facility] Potassium [Moles/Vol] 4 mmol/L 3.5 - 5.1 mmol/L [facility] Creatinine [Mass/volume] in Serum or PlasmaOrdered By: Rose Ohara on 12-11-2024 Creatinine [Mass/Vol] Creatinine [Mass/v olume] in Serum or Plasma 0.60-1.20 [facility] Eosinophils Auto (Bld) [#/Vo l]Ordered By: Rose Ohara on 12-11-2024 Eosinophils (Bld) [#/Vol] Automated eosinophil count 0.0-0.45 [facility] Eosinophils/100 WBC Auto (Bl d)Ordered By: Rose Ohara on 12-11-2024 Eosinophils/100 WBC (Bld) Automated eosinophil % . [facility] Erythrocyte distribution wid th Auto (RBC) [Ratio]Ordered By: Rose Ohara on 12-11-2024 Erythrocyte distribution width (RBC) [Ratio] Erythrocyte distribution width [Ratio] by Automated count High 11.9-15.3 [facility] Globulin Calc (S) [Mass/Vol] Ordered By: Rose Ohara on 12-11-2024 Globulin (S) [Mass/Vol] Serum globulin measurement by calculation (mass/volume) [facility] Glucose [Mass/volume] in Ser um or PlasmaOrdered By: Rose Ohara on 12-11-2024 Glucose [Mass/Vol] Glucose [Mass/volume ] in Serum or Plasma High 70-100 [facility] Comment on above: ADA recommended refe rence rangeRandom Glucose Reference Range is dependent on time and content of last meal. Glucose of more than 200 mg/dL in a nonstressed, ambulatory subject supports the diagnosis of Diabetes Mellitus. Hematocrit Auto (Bld) [Volum e fraction]Ordered By: Rose Ohara on 12-11-2024 Hematocrit (Bld) [Volume fraction] Hematocrit [Volume Fraction] of Blood by Automated count 34.0-46.4 [facility] Hemoglobin [Mass/volume] in BloodOrdered By: Rose Ohara on 12-11-2024 Hemoglobin (Bld) [Mass/Vol] Hemoglobin [Mass/volume] in Blood 11.8-15.4 [facility] LDH Lactate Dehydrogenaseon 12-11-2024 LDH LACTATE DEHYDROGENASE 151 U/L Normal 140-271 [facility] Comment on above: Result Comment: PERF ORMED BY: [place] [address] PATHOLOGIST TIE HACKER SANJUANITA GHOTRA M.D. Performed By: #### L , CMP #### [address] Lactate dehydrogenase [Enzym atic activity/volume] in Serum or Plasma by Lactate to pyOrdered By: Rose Ohara on 12-11-2024 LDH Lactate to pyruvate reaction [Catalytic activity/Vol] Lactate dehydrogenase [Enzymatic activity/volume] in Serum or Plasma by Lactate to py 140-271 [facility] Leukocytes [#/volume] correc jin for nucleated erythrocytes in Blood by Automated counOrdered By: Rose Ohara on 12-11-2024 WBC corrected for nucl RBC Auto (Bld) [#/Vol] Leukocytes [#/volume] corrected for nucleated erythrocytes in Blood by Automated coun 3.8-11.6 [facility] Lymphocytes Auto (Bld) [#/Vo l]Ordered By: Rose Ohara on 12-11-2024 Lymphocytes (Bld) [#/Vol] Lymphocytes [#/volume] in Blood by Automated count 1.00-4.8 [facility] Lymphocytes/100 WBC Auto (Bl d)Ordered By: Rose Ohara on 12-11-2024 Lymphocytes/100 WBC (Bld) Lymphocytes/100 leukocytes in Blood by Automated count . [facility] MCH Auto (RBC) [Entitic mass ]Ordered By: Rose Ohara on 12-11-2024 MCH (RBC) [Entitic mass] MCH [Entitic mass] by Automated count 24.7-34.3 [facility] MCHC Auto (RBC) [Mass/Vol]Or dered By: Rose Ohara on 12-11-2024 MCHC (RBC) [Mass/Vol] MCHC [Mass/volume] by Automated count 32.0-35.0 [facility] MCV Auto (RBC) [Entitic vol] Ordered By: Rose Ohara on 12-11-2024 MCV (RBC) [Entitic vol] MCV [Entitic volume] by Automated count 80-100 [facility] Monocytes Auto (Bld) [#/Vol] Ordered By: Rose Ohara on 12-11-2024 Monocytes (Bld) [#/Vol] Automated blood monocyte count 0.0-0.8 [facility] Monocytes/100 WBC Auto (Bld) Ordered By: Rose Ohara on 12-11-2024 Monocytes/100 WBC (Bld) Automated monocyte % . [facility] Neutrophils Auto (Bld) [#/Vo l]Ordered By: Rose Ohara on 12-11-2024 Neutrophils (Bld) [#/Vol] Neutrophils [#/volume] in Blood by Automated count 1.8-7.7 [facility] Neutrophils/100 WBC Auto (Bl d)Ordered By: Rose Ohara on 12-11-2024 Neutrophils/100 WBC (Bld) Automated neutrophil % . [facility] No Panel Informationon 12-11 [facility] No Panel InformationOrdered By: Rose Ohara on 12-11-2024 Estimated GFR (CKD-EPI) > 60.0 mL/Min [facility] Creatinine Clearance (Chem 53.08 [facility] Nucleated erythrocytes [Pres ence] in Blood by Automated countOrdered By: Rose Ohara on 12-11-2024 Nucleated RBC Auto Ql (Bld) Nucleated erythrocytes [Presence] in Blood by Automated count 0-0.5 [facility] Platelet mean volume Auto (B ld) [Entitic vol]Ordered By: Rose Ohara on 12-11-2024 Platelet mean volume (Bld) [Entitic vol] Platelet mean volume [Entitic volume] in Blood by Automated count 6.3-10.7 [facility] Platelets Auto (Bld) [#/Vol] Ordered By: Rose Ohara on 12-11-2024 Platelets (Bld) [#/Vol] Platelets [#/volume] in Blood by Automated count 150-450 [facility] Potassium [Moles/volume] in Serum or PlasmaOrdered By: Rose Ohara on 12-11-2024 Potassium [Moles/Vol] Potassium [Moles/v olume] in Serum or Plasma 3.5-5.1 [facility] Protein [Mass/volume] in Ser um or PlasmaOrdered By: Rose Ohara on 12-11-2024 Protein [Mass/Vol] Protein [Mass/volume ] in Serum or Plasma 6.4-8.9 [facility] RBC Auto (Bld) [#/Vol]Ordere d By: Rose Ohara on 12-11-2024 RBC (Bld) [#/Vol] Erythrocytes [#/volu me] in Blood by Automated count 3.60-5.00 [facility] Serum or plasma albumin/glob ulin mass ratioOrdered By: Rose Ohara on 12-11-2024 Albumin/Globulin [Mass ratio] Serum or plasma albumin/globulin mass ratio [facility] Serum or plasma anion gap de terminationOrdered By: Rose Ohara on 12-11-2024 Anion gap [Moles/Vol] Serum or plasma an ion gap determination High 6.0-15.0 [facility] Sodium [Moles/volume] in Ser um or PlasmaOrdered By: Rose Ohara on 12-11-2024 Sodium [Moles/Vol] Sodium [Moles/volume ] in Serum or Plasma 136-145 [facility] Urea nitrogen [Mass/volume] in Serum or PlasmaOrdered By: Rose Ohara on 12-11-2024 Urea nitrogen [Mass/Vol] Urea nitrogen [Mass/volume] in Serum or Plasma 7-25 [facility] WBC Auto (Bld) [#/Vol]Ordere d By: Rose Ohara on 12-11-2024 WBC (Bld) [#/Vol] Leukocytes [#/volume ] in Blood by Automated count 3.8-11.6 [facility] HGB A1C (GLYCO-HGB)on 2023 Glucose [Mass/Vol] 197 mg/dL [facility] Comment on above: Performed By: #### 3 016-3, PRANAY #### [facility] ([id number]) [address], [address] [place] [address] HbA1c (Bld) [Mass fraction] 8.5 % High 4.4-5.6 [facility] Comment on above: Result Comment: NOTE ADA Guidelines Result HgbA1c Normal : less than 5.7 % Prediabetes : 5.7 % to 6.4 % Diabetes : > 6.4 % Use with caution in patients with abnormal hemoglobin variants as the half-life of red blood cells and in vivo glycation rates are affected. Performed By: #### 3 016-3, PRANAY #### [facility] ([id number]) [address], [address] [address] MICROALBUMIN - ALBUMIN:CREAT ININE URINE RATIOon 07-16-2024 ALB/CREAT RATIO NOT CALCULATED Normal 0.0-30.0 [facility] Comment on above: Result Comment: Result for Albumin/Creatinine Ratio cannot be reliably calculated because urine albumin and or urine creatinine is below the detection limit of the assay. Performed By: #### Andres FREY, 77404-7, 00075-7, 2777-1, 3084-1, 2731-8, 27907-6 #### [facility] ([id number]) [address], [facility] [address] [place] [address] Albumin DL <= 20 mg/L (U) [Mass/Vol] mg/dL Normal 0.0-1.9 [facility] Comment on above: Performed By: #### Andres FREY, 46602-9, 96039-6, 2777-1, 3084-1, 2731-8, 27099-1 #### [facility] ([id number]) [address], [facility] [address] [place] [address] URINE CREAT 74.02 mg/dL Normal [facility] Comment on above: Performed By: #### Andres FREY, 52369-4, 71457-7, 2777-1, 3084-1, 2731-8, 86378-6 #### [facility] ([id number]) [address] [facility] [place] [address] TSH Qnon 07-16-2024 TSH 1.00 uIU/mL Normal 0.49-4.67 [facility] Comment on above: Performed By: #### 3 016-3, HA1C #### [facility] ([id number]) [address] [facility], [address] [place] [address] 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 MAMM SCREENING BILATERAL W CAD MAMM [...] 1:35 PM 1 a FU ACR Normal [facility] COMPREHENSIVE METABOLIC PANE Heladio 01-11-2024 Albumin [Mass/Vol] 4.2 g/dL Normal 3.2-5.3 [facility] Comment on above: Performed By: #### [place], [address]-2, 38696-7, 2777-1, 3084-1, 2731-8, 17608-7 #### [facility] ([id number]) [address] [facility], [address] [place] [address] ALP [Catalytic activity/Vol] 74 U/L Normal 39-130 [facility] Comment on above: Performed By: #### [place], 72538-8, 12424-2, 2777-1, 3084-1, 2731-8, 79442-1 #### [facility] ([id number]) [address], [address] [place] [address] ALT [Catalytic activity/Vol] 16 U/L Normal 0-31 [facility] Comment on above: Performed By: #### [place], 54791-9, 16704-1, 2777-1, 3084-1, 2731-8, 88849-4 #### [facility] ([id number]) [address], [address] [place] [address] Anion gap [Moles/Vol] 11 mmol/L Normal 5-15 [facility] Comment on above: Performed By: #### [place], 47027-1, 85605-8, 7-1, 3084-1, 2731-8, 31819-9 #### [facility] ([id number]) [address], [address] [place] [address] AST [Catalytic activity/Vol] 13 U/L Normal 0-41 [facility] Comment on above: Performed By: #### C MP, 36294-3, 10307-6, 2777-1, 3084-1, 2731-8, 91197-8 #### [facility] ([id number]) [address], [address] [place] [address] Bilirubin [Mass/Vol] 0.9 mg/dL Normal 0.3-1.2 [facility] Comment on above: Performed By: #### [place], 21476-4, 89324-7, 2777-1, 3084-1, 2731-8, 51955-4 #### [facility] ([id number]) [address], [address] [place] [address] Calcium [Mass/Vol] 9.7 mg/dL Normal 8.5-10.5 [facility] Comment on above: Performed By: #### C [place], 16310-6, 86124-9, 2777-1, 3084-1, 2731-8, 21739-9 #### [facility] ([id number]) [address], [address] [place] [address] Chloride [Moles/Vol] 106 mmol/L Normal 98-109 [facility] Comment on above: Performed By: #### C MP, 06054-1, 91459-6, 7-1, 3084-1, 2731-8, 01374-5 #### [facility] ([id number]) [address] [facility], [address] [place] [address] CO2 [Moles/Vol] 24 mmol/L Normal 22-32 [facility] Comment on above: Performed By: #### C SHANTE, 39207-0, 24165-3, 7-1, 3084-1, 2731-8, 11597-0 #### [facility] ([id number]) [address], [address] [place] [address] Creatinine [Mass/Vol] 0.84 mg/dL Normal 0.40-1.00 [facility] Comment on above: Result Comment: METH OD TRACEABLE TO IDMS STANDARD Performed By: #### C SHANTE, 22069-3, 43386-7, 7-1, 3084-1, 2731-8, 05522-0 #### [facility] ([id number]) [address], [address] [place] [address] GFR/1.73 sq M.predicted among non-blacks MDRD (S/P/Bld) [Vol rate/Area] 73 mL/min/{1.73_m2} Normal >59 [facility] Comment on above: Result Comment: Reported eGFR is based on the CKD-EPI 2020 equation that does not use a race coefficient. Performed By: #### C MP, 52295-9, 51303-9, 2777-1, 3084-1, 2731-8, 36401-4 #### [facility] ([id number]) [address], [address] [place] [address] Glucose [Mass/Vol] 132 mg/dL High 65-99 [facility] Comment on above: Performed By: #### C SHANTE, 63421-5, 34617-8, 2777-1, 3084-1, 2731-8, 03334-9 #### [facility] ([id number]) [address], [address] [place] [address] Potassium [Moles/Vol] 4.9 mmol/L Normal 3.5-5.0 [facility] Comment on above: Performed By: #### C SHANTE, 99976-5, 21037-3, 2777-1, 3084-1, 2730-8, 89406-9 #### [facility] ([id number]) [address], [address] [place] [address] Protein [Mass/Vol] 6.9 g/dL Normal 6.0-8.0 [facility] Comment on above: Performed By: #### C SHANTE, 85765-5, 80779-3, 7-1, 3084-1, 2730-8, 36250-4 #### [facility] ([id number]) [address], [address] [place] [address] Sodium [Moles/Vol] 141 mmol/L Normal 134-146 [facility] Comment on above: Performed By: #### C MP, 01216-3, 32549-0, 2777-1, 3084-1, 2731-8, 99967-1 #### [facility] ([id number]) [address], [address] [place] [address] Urea nitrogen [Mass/Vol] 21 mg/dL Normal 5-27 [facility] Comment on above: Performed By: #### C MP, 46894-6, 28397-7, 2777-1, 3084-1, 2731-8, 32799-4 #### [facility] ([id number]) [address] [facility], [address] [place] [address] Comprehensive metabolic pane heladio 01-11-2024 Albumin [Mass/Vol] 4.2 g/dL 3.2 - 5.3 g/dL [facility] ALP [Catalytic activity/Vol] 74 U/L 39 - 130 U/L [facility] ALT No additional P-5'-P [Catalytic activity/Vol] 16 U/L 0 - 31 U/L [facility] Anion gap [Moles/Vol] 11 mmol/L 5 - 15 mmol/L [facility] AST [Catalytic activity/Vol] 13 U/L 0 - 41 U/L [facility] Bilirubin [Mass/Vol] 0.9 mg/dL 0.3 - 1 .2 mg/dL [facility] Calcium [Mass/Vol] 9.7 mg/dL 8.5 - 10. 5 mg/dL [facility] Chloride [Moles/Vol] 106 mmol/L 98 - 10 9 mmol/L [facility] CO2 [Moles/Vol] 24 mmol/L 22 - 32 mmol/L [facility] Creatinine [Mass/Vol] 0.84 mg/dL 0.40 - 1.00 mg/dL [facility] Comment on above: METHOD TRACEABLE TO IDPA STANDARD eGFR (CKD-EPI)non-race dependent 73 - PINF [facility] Comment on above: Reported eGFR is based on the CKD-EPI 2020 equation that does not use a race coefficient. Glucose [Mass/Vol] 132 mg/dL High 65 - 99 mg/dL [facility] Potassium [Moles/Vol] 4.9 mmol/L 3.5 - 5.0 mmol/L [facility] Protein [Mass/Vol] 6.9 g/dL 6.0 - 8.0 g/dL [facility] Sodium [Moles/Vol] 141 mmol/L 134 - 146 mmol/L [facility] Urea nitrogen [Mass/Vol] 21 mg/dL 5 - 27 mg/dL [facility] HGB A1C (GLYCO-HGB)on 03-06- 2024 Glucose [Mass/Vol] 171 mg/dL Normal [facility] Comment on above: Performed By: #### C , 87807-3, 83869-7, 2777-1, 3084-1, 2731-8, 07226-6 #### [facility] ([id number]) [address] [facility], [address] [place] [address] HbA1c (Bld) [Mass fraction] 7.6 % High 4.4-5.6 [facility] Comment on above: Result Comment: NOTE ADA Guidelines Result HgbA1c Normal : less than 5.7 % Prediabetes : 5.7 % to 6.4 % Diabetes : > 6.4 % Use with caution in patients with abnormal hemoglobin variants as the half-life of red blood cells and in vivo glycation rates are affected. Performed By: #### C , 65270-8, 28947-4, 2777-1, 3084-1, 2731-8, 47665-5 #### [facility] ([id number]) [address] [facility] [place] [address] Hemoglobin A1con 01-11-2024 Average glucose Estimated from glycated hemoglobin (Bld) [Mass/Vol] 171 mg/dL [facility] HbA1c (Bld) [Mass fraction] 7.6 % High 4.4 - 5.6 % [facility] Comment on above: NOTE ADA Guidelines Result HgbA1c Normal : less than 5.7 % Prediabetes : 5.7 % to 6.4 % Diabetes : > 6.4 % Use with caution in patients with abnormal hemoglobin variants as the half-life of red blood cells and in vivo glycation rates are affected. Interpretation and review of laboratory results Abnormal [facility] Lipid 1996 panelon Cholesterol [Mass/Vol] 104 mg/dL Low 150 - 200 mg/dL [facility] Cholesterol in HDL [Mass/Vol] 46 mg/dL 39 - PINF mg/dL [facility] Comment on above: HDL <40 mg/dL - High Risk HDL > or = 40mg/dL- Desirable HDL >60 mg/dL - Negative Risk Cholesterol in LDL [Mass/Vol] 19 mg/dL NINF - 130 mg/dL [facility] Comment on above: LDL <100 mg/dL - Desirable LDL >160 mg/dL - High Risk Cholesterol in VLDL [Mass/Vol] 39 mg/dL High 0 - 30 mg/dL [facility] Cholesterol.total/Cho lesterol in HDL [Mass ratio] 2.3 {ratio} 1.0 - 5.0 [facility] Triglyceride [Mass/Vol] 194 mg/dL High 27 - 150 mg/dL [facility] Cholesterol [Mass/Vol] 104 mg/dL Low 150-200 [facility] Comment on above: Performed By: #### Andres FREY, 20325-9, 04928-0, 7-1, 3084-1, 2731-8, 65883-5 #### [facility] ([id number]) [address] [facility], [address] [place] [address] Cholesterol in HDL [Mass/Vol] 46 mg/dL Normal >39 [facility] Comment on above: Result Comment: HDL <40 mg/dL - High Risk HDL > or = 40mg/dL- Desirable HDL >60 mg/dL - Negative Risk Performed By: #### Andres FREY, 62954-9, 08443-8, 7-1, 3084-1, 2731-8, 07408-9 #### [facility] ([id number]) [address], [address] [place] [address] Cholesterol in LDL [Mass/Vol] 19 mg/dL Normal <130 [facility] Comment on above: Result Comment: LDL <100 mg/dL - Desirable LDL >160 mg/dL - High Risk Performed By: #### C SHANTE, 67666-9, 34839-9, 2777-1, 3084-1, 2731-8, 56994-0 #### [facility] ([id number]) [address], [address] [place] [address] Cholesterol in VLDL [Mass/Vol] 39 mg/dL High 0-30 [facility] Comment on above: Performed By: #### C SHANTE, 68738-7, 11013-8, 2777-1, 3084-1, 2731-8, 08053-0 #### [facility] ([id number]) [address], [address] [address] CHOLESTEROL:HDL 2.3 Normal 1.0-5.0 [facility] Comment on above: Performed By: #### C SHANTE, 97946-6, 63290-6, 2777-1, 3084-1, 2731-8, 77847-9 #### [facility] ([id number]) [address], [address] [place] [address] Triglyceride [Mass/Vol] 194 mg/dL High 27-150 [facility] Comment on above: Performed By: #### C SHANTE, 52292-4, 66252-5, 2777-1, 3084-1, 2731-8, 38483-4 #### [facility] ([id number]) [address], [address] [place] [address] MAGNESIUMon 01-11-2024 Magnesium [Mass/Vol] 1.7 mg/dL Low 1.8-2.6 [facility] Comment on above: Performed By: #### C SHANTE, 63779-5, 63118-0, 2777-1, 3084-1, 2731-8, 21037-8 #### [facility] ([id number]) [address], [address] [place] [address] Magnesiumon 01-11-2024 Magnesium [Mass/Vol] 1.7 mg/dL Low 1.8 - 2 .6 mg/dL [facility] No Panel Informationon 01-10 Interpretation and review of laboratory results Abnormal [facility] PHOSPHORUSon 01-11-2024 Phosphate [Mass/Vol] 3.7 mg/dL Normal 2.4-4.9 [facility] Comment on above: Performed By: #### C SHANTE, 76093-3, 23510-3, 2777-1, 3084-1, 2731-8, 17455-5 #### [facility] ([id number]) [address] [place] [address] Parathyrin.intact [Mass/Vol] on 01-11-2024 [facility] PTH INTACT 61 pg/mL Normal 12-88 [facility] Comment on above: Performed By: #### C SHANTE, 84392-4, 46694-2, 2777-1, 3084-1, 2731-8, 55790-5 #### [facility] ([id number]) [address], [address] [place] [address] Parathyroid Hormone, intacto n 01-11-2024 Parathyrin.intact [Mass/Vol] 61 pg/mL 12 - 88 pg/mL [facility] Phosphoruson 01-11-2024 Phosphate [Mass/Vol] 3.7 mg/dL 2.4 - 4 .9 mg/dL [facility] URIC ACIDon 01-11-2024 Urate [Mass/Vol] 6.6 mg/dL Normal 2.6-7.2 [facility] Comment on above: Performed By: #### Andres FREY, 06883-2, 44875-3, 7-1, 3084-1, 2731-8, 08777-3 #### [facility] ([id number]) [address] [place] [address], [address] [place] [address] Uric acidon 01-11-2024 Urate [Mass/Vol] 6.6 mg/dL 2.6 - 7.2 mg/dL [facility] Vitamin D 25 hydroxyon 01-10 Vitamin D+Metabolites [Mass/Vol] 11.1 ng/mL Low 30 - 100 ng/mL [facility] Comment on above: Vitamin D status 25 [place] Vitamin D Deficiency <20 ng/mL Insufficiency 20-29 ng/mL Sufficiency 30-100 ng/mL Toxicity >100 ng/mL NOTE: A pediatric reference range has not been established by the concierge of this kit. The [place] [employer] recommends a Vitamin D level of = or >20ng/mL in infants and children. Vitamin D+Metabolites [Mass/ Vol]on 01-11-2024 Interpretation and review of laboratory results Abnormal [facility] VITAMIN D 25 HYD TOT 11.1 ng/mL Low 30-100 [facility] Comment on above: Result Comment: Vitamin D status 25 [place] Vitamin D Deficiency <20 ng/mL Insufficiency 20-29 ng/mL Sufficiency 30-100 ng/mL Toxicity >100 ng/mL NOTE: A pediatric reference range has not been established by the concierge of this kit. The [place] [employer] recommends a Vitamin D level of = or >20ng/mL in infants and children. Performed By: #### Andres FREY, 36179-8, 49975-6, 7-1, 3084-1, 2731-8, 32603-1 #### [facility] ([id number]) [address] [place] [address] Alanine aminotransferase [En zymatic activity/volume] in Serum or PlasmaOrdered By: Farhana Sotomayor on 12-13-2023 ALT [Catalytic activity/Vol] 12 U/L 7-52 [facility] Albumin [Mass/volume] in Ser um or Plasma by Bromocresol green (BCG) dye binding methoOrdered By: Farhana Sotomayor on 12-13-2023 Albumin BCG dye [Mass/Vol] 4.0 g/dL 3.5-5.7 [facility] Alkaline phosphatase [Enzyma tic activity/volume] in Serum or PlasmaOrdered By: Farhana Sotomayor on 12-13-2023 ALP [Catalytic activity/Vol] 55 U/L 34-104 [facility] Aspartate aminotransferase [ Enzymatic activity/volume] in Serum or PlasmaOrdered By: Farhana Sotomayor on 12-13-2023 AST [Catalytic activity/Vol] 11 U/L 13-39 [facility] Basophils Auto (Bld) [#/Vol] Ordered By: Farhana Sotomayor on 12-13-2023 Basophils (Bld) [#/Vol] 0.1 10*3/uL 0.0-0.2 [facility] Basophils/100 WBC Auto (Bld) Ordered By: Farhana Sotomayor on 12-13-2023 Basophils/100 WBC (Bld) 1.2 % . [facility] Bilirubin.total [Mass/volume ] in Serum or PlasmaOrdered By: Farhana Sotomayor on 12-13-2023 Bilirubin [Mass/Vol] 0.8 mg/dL 0.3-1.0 [facility] Calcium [Mass/volume] in Ser um or PlasmaOrdered By: Farhana Sotomayor on 12-13-2023 Calcium [Mass/Vol] 9.3 mg/dL 8.6-10.3 [facility] Carbon dioxide, total [Moles /volume] in Serum or PlasmaOrdered By: Farhana Sotomayor on 12-13-2023 CO2 [Moles/Vol] 26.9 mmol/L 21.0-31.0 [facility] Chloride [Moles/volume] in S marlena or PlasmaOrdered By: Farhana Sotomayor on 12-13-2023 Chloride [Moles/Vol] 103 mmol/L 98-107 [facility] Creatinine [Mass/volume] in Serum or PlasmaOrdered By: Farhana Sotomayor on 12-13-2023 Creatinine [Mass/Vol] 1.05 mg/dL 0.60-1.20 [facility] Eosinophils Auto (Bld) [#/Vo l]Ordered By: Farhana Sotomayor on 12-13-2023 Eosinophils (Bld) [#/Vol] 0.2 10*3/uL 0.0-0.45 [facility] Eosinophils/100 WBC Auto (Bl d)Ordered By: Farhana Sotomayor on 12-13-2023 Eosinophils/100 WBC (Bld) 2.4 % . [facility] Erythrocyte distribution wid th Auto (RBC) [Ratio]Ordered By: Farhana Sotomayor on 12-13-2023 Erythrocyte distribution width (RBC) [Ratio] 16.0 % 11.9-15.3 [facility] Globulin Calc (S) [Mass/Vol] Ordered By: Farhana Sotomayor on 12-13-2023 Globulin (S) [Mass/Vol] 2.7 g/dL [facility] Glucose [Mass/volume] in Ser um or PlasmaOrdered By: Farhana Sotomayor on 12-13-2023 Glucose [Mass/Vol] 135 mg/dL 70-100 [facility] Comment on above: ADA recommended refe rence rangeRandom Glucose Reference Range is dependent on time and content of last meal. Glucose of more than 200 mg/dL in a nonstressed, ambulatory subject supports the diagnosis of Diabetes Mellitus. Hematocrit Auto (Bld) [Volum e fraction]Ordered By: Farhana Sotomayor on 12-13-2023 Hematocrit (Bld) [Volume fraction] 35.5 % 34.0-46.4 [facility] Hemoglobin [Mass/volume] in BloodOrdered By: Farhana Sotomayor on 12-13-2023 Hemoglobin (Bld) [Mass/Vol] 11.5 g/dL 11.8-15.4 [facility] Lactate dehydrogenase [Enzym atic activity/volume] in Serum or Plasma by Lactate to pyOrdered By: Farhana Sotomayor on 12-13-2023 LDH Lactate to pyruvate reaction [Catalytic activity/Vol] 118 U/L 140-271 [facility] Leukocytes [#/volume] correc jin for nucleated erythrocytes in Blood by Automated counOrdered By: Farhana Sotomayor on 12-13-2023 WBC corrected for nucl RBC Auto (Bld) [#/Vol] 7.6 10*3/uL 3.8-11.6 [facility] Lymphocytes Auto (Bld) [#/Vo l]Ordered By: Farhana Sotomayor on 12-13-2023 Lymphocytes (Bld) [#/Vol] 1.9 10*3/uL 1.00-4.8 [facility] Lymphocytes/100 WBC Auto (Bl d)Ordered By: Farhana Sotomayor on 12-13-2023 Lymphocytes/100 WBC (Bld) 25.0 % . [facility] MCH Auto (RBC) [Entitic mass ]Ordered By: Farhana Sotomayor on 12-13-2023 MCH (RBC) [Entitic mass] 28.3 pg 24.7-34.3 [facility] MCHC Auto (RBC) [Mass/Vol]Or dered By: Farhana Sotomayor on 12-13-2023 MCHC (RBC) [Mass/Vol] 32.5 g/dL 32.0-35.0 [facility] MCV Auto (RBC) [Entitic vol] Ordered By: Farhana Sotomayor on 12-13-2023 MCV (RBC) [Entitic vol] 87.2 fL 80-100 [facility] Magnesium [Mass/volume] in S marlena or PlasmaOrdered By: Zabrina Simon on 12-13-2023 Magnesium [Mass/Vol] 1.5 mg/dL 1.9-2.7 [facility] Monocytes Auto (Bld) [#/Vol] Ordered By: Farhana Sotomayor on 12-13-2023 Monocytes (Bld) [#/Vol] 0.6 10*3/uL 0.0-0.8 [facility] Monocytes/100 WBC Auto (Bld) Ordered By: Farhana Sotomayor on 12-13-2023 Monocytes/100 WBC (Bld) 8.3 % . [facility] Natriuretic peptide B [Mass/ Vol]Ordered By: Zabrina Simon on 12-13-2023 Natriuretic peptide B (Bld) [Mass/Vol] 70.0 pg/mL 5-100 [facility] Neutrophils Auto (Bld) [#/Vo l]Ordered By: Farhana Sotomayor on 12-13-2023 Neutrophils (Bld) [#/Vol] 4.8 10*3/uL 1.8-7.7 [facility] Neutrophils/100 WBC Auto (Bl d)Ordered By: Farhana Sotomayor on 12-13-2023 Neutrophils/100 WBC (Bld) 63.1 % . [facility] No Panel InformationOrdered By: Farhana Sotomayor on 12-13-2023 Estimated GFR (CKD-EPI) 55.755 mL/Min [facility] Creatinine Clearance (Chem 51.93 [facility] Nucleated erythrocytes [Pres ence] in Blood by Automated countOrdered By: Farhana Sotomayor on 12-13-2023 Nucleated RBC Auto Ql (Bld) 0.0 /100{WBC} 0-0.5 [facility] Platelet mean volume Auto (B ld) [Entitic vol]Ordered By: Farhana Sotomayor on 12-13-2023 Platelet mean volume (Bld) [Entitic vol] 7.5 fL 6.3-10.7 [facility] Platelets Auto (Bld) [#/Vol] Ordered By: Farhana Sotomayor on 12-13-2023 Platelets (Bld) [#/Vol] 220 10*3/uL 150-450 [facility] Potassium [Moles/volume] in Serum or PlasmaOrdered By: Farhana Sotomayor on 12-13-2023 Potassium [Moles/Vol] 5.3 mmol/L 3.5-5.1 [facility] Protein [Mass/volume] in Ser um or PlasmaOrdered By: Farhana Sotomayor on 12-13-2023 Protein [Mass/Vol] 6.7 g/dL 6.4-8.9 [facility] RBC Auto (Bld) [#/Vol]Ordere d By: Farhana Sotomayor on 12-13-2023 RBC (Bld) [#/Vol] 4.07 10*6/uL 3.60-5.00 [facility] Serum or plasma albumin/glob ulin mass ratioOrdered By: Farhana Sotomayor on 12-13-2023 Albumin/Globulin [Mass ratio] 1.5 {ratio} [facility] Serum or plasma anion gap de terminationOrdered By: Farhana Sotomayor on 12-13-2023 Anion gap [Moles/Vol] 14.4 mmol/L 6.0-15.0 [facility] Sodium [Moles/volume] in Ser um or PlasmaOrdered By: Farhana Sotomayor on 12-13-2023 Sodium [Moles/Vol] 139 mmol/L 136-145 [facility] Urea nitrogen [Mass/volume] in Serum or PlasmaOrdered By: Farhana Sotomayor on 12-13-2023 Urea nitrogen [Mass/Vol] 27 mg/dL 7-25 [facility] WBC Auto (Bld) [#/Vol]Ordere d By: Farhana Sotomayor on 12-13-2023 WBC (Bld) [#/Vol] 7.6 10*3/uL 3.8-11.6 [facility] Operative Reporton 4 Operative Report Indication for Surge ry Wound dehiscence left total knee Preoperative Diagnosis Wound dehiscence left total knee Postoperative Diagnosis Wound dehiscence left total knee Operation Debridement Lower Extremity, INCISION AND DRAINAGE LEFT KNEE, SECONDARY CLOSURE OF WOUND DEHISENCE, PREVENNA PLACMENT, Left, Knee Surgeon(s) Ronaldo JUAREZ, Aly Guzman (Surgeon - Primary) Infrastructure Tech Miguel Capellan APRN-MASTERCAM PROGRAMMER, Dee Dee Hays (Systems Requirements Planner) Anesthesia General Mile JUAREZ, Hank Richard (Pharmaceutical Representative) Emmanuelle CLARKE-GOLDY, Joleen Maldonado (Provider) Estimated Blood Loss 10 cc Urine Output no mon Findings as above Specimen(s) none Complications none [...] stable condition. Will be discharged home with [place] and Keflex 500 mg p.o. 3 times daily x 7 days. Return the office in 1 week for wound check. Tourniquet Time NA Sponge/Needle Count correct Fluid Count as per chart Catheters, Drains, Tubes Prevena Electronically signed by Aly Higgins MD 11/09/23 17:29 EST Normal [facility] POC Glucose Randomon 024 Glucose [Mass/Vol] 118 mg/dL High 70-99 [facility] Comment on above: Performed By: #### C [id number] #### [facility] [address] [place] [address] Glucose [Mass/Vol] 137 mg/dL High 70-99 [facility] Comment on above: Performed By: #### C [id number] #### [facility] [address] [place] [address] Glucose [Mass/Vol] 138 mg/dL High 70-99 [facility] Comment on above: Performed By: #### C [id number] #### [facility] [address] [place] [address] Hgb/Hcton 10-04-2023 Hematocrit (Bld) [Volume fraction] 35.2 % Low 36.3-47.1 [facility] Comment on above: Performed By: #### H H #### [address] [place], [place] [id number] Eradicator: Alexey Rob MD Hemoglobin (Bld) [Mass/Vol] 11.5 g/dL Low 11.9-15.1 [facility] Comment on above: Performed By: #### H H #### [address] [place], [place] [id number] Eradicator: Alexey Rob MD OPERATIVE REPORTon OPERATIVE REPORT [address] [address] OPERATIVE REPORT PATIENT NAME: TOSHA MCNEAL : 1950 [facility] REC NO: [id number] ROOM: 0331 ACCOUNT NO: [id number] ADMIT DATE: 10/03/2023 PROVIDER: Aly Higgins DATE [...] to go with a 32-mm patellar dome. Buffalo holes were placed. Knee was then cleansed [...] layer was then closed with #1 Vicryl [id number] sutures over two Hemovac drains. Vancomycin powder [...] a stable condition. ALY HIGGINS PH/V_CGARP_T Doc#: [id number] CC: [facility] MRSA, DNA, Nasalon 3 MRSA, DNA, Nasal Negative Normal NEG [facility] Comment on above: Result Comment: NEGA TIVE: MRSA DNA not detected by nucleic acid amplification. Results should be used as an adjunct to nosocomial control efforts to identify patients needing enhanced precautions. The test is not intended to identify patients with staphylococcal infections. Results should not be used to guide or monitor treatment for MRSA infections. Performed By: #### M RSANO #### [facility] [address] [place], [place] [id number] Eradicator: Jose Miguel Davis MD [facility] [address] [place] [address] [address] [place], [place] [id number] Eradicator: Alexey Rob MD Basic Metabolic Profon 09-08 Anion gap [Moles/Vol] 12 mmol/L Normal 9-17 [facility] Comment on above: Performed By: #### B SHANTE, CDP #### [facility] [address] [place] [address] Dr[address] [place], [place] [id number] Eradicator: Alexey Rob MD BUN/CRE Ratio 35 High 9-20 [facility] Comment on above: Performed By: #### B SHANTE, CDP #### [address] [place], [place] [phone] Eradicator: Alexey Rob MD Calcium [Mass/Vol] 9.9 mg/dL Normal 8.6-10.4 [facility] Comment on above: Performed By: #### B MP, CDP #### [facility] [address] [place] [address] [address] [place], [place] [phone] Eradicator: Alexey Rob MD Chloride [Moles/Vol] 99 mmol/L Normal 98-107 [facility] Comment on above: Performed By: #### B MP, CDP #### [facility] [address] [place] [address] Dr. [place], [place] [phone] Eradicator: Alexey Rob MD CO2 [Moles/Vol] 27 mmol/L Normal 20-31 [facility] Comment on above: Performed By: #### B MP, CDP #### [facility] [address] [place] [address] Eradicator: Alexey Rob MD Creatinine [Mass/Vol] 1.0 mg/dL High 0.5-0.9 [facility] Comment on above: Performed By: #### B SHANTE, CDP #### [facility] [address] [place] [address] Eradicator: Alexey Rob MD GFR/1.73 sq M.predicted among non-blacks MDRD (S/P/Bld) [Vol rate/Area] 59 mL/min/{1.73_m2} Low >60 [facility] Comment on above: Result Comment: These results [...] Performed By: #### B SHANTE, CDP #### [address] [place] [address] Eradicator: Alexey Rob MD Glucose [Mass/Vol] 126 mg/dL High 70-99 [facility] Comment on above: Performed By: #### B SHANTE, CDP #### [address] [place] [address] Eradicator: Alexey Rob MD Potassium [Moles/Vol] 4.9 mmol/L Normal 3.7-5.3 [facility] Comment on above: Performed By: #### B SHANTE, CDP #### [address] [place] [address] Eradicator: Alexey Rob MD Sodium [Moles/Vol] 138 mmol/L Normal 135-144 [facility] Comment on above: Performed By: #### B SHANTE, CDP #### [facility] [address] [place], [place] [phone] Eradicator: Alxeey Rob MD Urea nitrogen [Mass/Vol] 35 mg/dL High 8-23 [facility] Comment on above: Performed By: #### B MP, CDP #### [facility] [address] [place], [place] [phone] Eradicator: Alexey Rob MD CBC with Diffon 09-08-2023 Abs. Basophil 0.07 k/uL Normal 0.00-0.20 [facility] Comment on above: Performed By: #### B SHANTE, CDP #### [address] [place], [place] [phone] Eradicator: Alexey Rob MD Abs.Imm.Granulocyte 0.04 k/uL Normal 0.00-0.30 [facility] Comment on above: Performed By: #### B SHANTE, CDP #### [address] [place], [place] [phone] Eradicator: Alexey Rob MD Abs.Neutrophil (Seg) 5.10 k/uL Normal 1.50-8.10 [facility] Comment on above: Performed By: #### B SHANTE, CDP #### [address] [place], [place] [phone] Eradicator: Alexey Rob MD Basophils/100 WBC (Bld) 1 % Normal 0-2 [facility] Comment on above: Performed By: #### B MP, CDP #### [address] [place], [place] [phone] Eradicator: Alexey Rob MD Eosinophils (Bld) [#/Vol] 0.13 10*3/uL Normal 0.00-0.44 [facility] Comment on above: Performed By: #### B SHANTE, CDP #### [facility] [address] [place] [address] Dr[address] [place], [place] [phone] Eradicator: Alexey Rob MD Eosinophils/100 WBC (Bld) 2 % Normal 1-4 [facility] Comment on above: Performed By: #### B MP, CDP #### [facility] [address] [place] [address] Dr. [place], [place] [phone] Eradicator: Alexey Rob MD Erythrocyte distribution width (RBC) [Ratio] 13.6 % Normal 11.8-14.4 [facility] Comment on above: Performed By: #### B MP, CDP #### [facility] [address] [place] [address] Dr. [place], [place] [phone] Eradicator: Alexey Rob MD Hematocrit (Bld) [Volume fraction] 44.2 % Normal 36.3-47.1 [facility] Comment on above: Performed By: #### B SHANTE, CDP #### [facility] [address] [place] [address] Dr. [place], [place] [phone] Eradicator: Alexey Rob MD Hemoglobin (Bld) [Mass/Vol] 14.1 g/dL Normal 11.9-15.1 [facility] Comment on above: Performed By: #### B SHANTE, CDP #### [address] [place], [place] [phone] Eradicator: Alexey Rob MD Immature granulocytes/100 WBC (Bld) 1 % High 0 [facility] Comment on above: Performed By: #### B MP, CDP #### [facility] [address] [place] [address] Dr. [place], [place] [phone] Eradicator: Alexey Rob MD Lymphocytes (Bld) [#/Vol] 1.87 10*3/uL Normal 1.10-3.70 [facility] Comment on above: Performed By: #### B MP, CDP #### [facility] [address] [place] [address] Dr. [place], [place] [phone] Eradicator: Alexey Rob MD Lymphocytes/100 WBC (Bld) 24 % Normal 24-43 [facility] Comment on above: Performed By: #### B MP, CDP #### [facility] [address] [place] [address] Eradicator: Alexey Rob MD MCH (RBC) [Entitic mass] 29.5 pg Normal 25.2-33.5 [facility] Comment on above: Performed By: #### B MP, CDP #### [facility] [address] [place] [address] Eradicator: Alexey Rob MD MCHC (RBC) [Mass/Vol] 31.9 g/dL Normal 28.4-34.8 [facility] Comment on above: Performed By: #### B SHANTE, CDP #### [address] [place] [phone] Eradicator: Alexey Rob MD MCV (RBC) [Entitic vol] 92.5 fL Normal 82.6-102.9 [facility] Comment on above: Performed By: #### B SHANTE, CDP #### [address] [place], [place] [phone] Eradicator: Alexey Rob MD Monocytes (Bld) [#/Vol] 0.75 10*3/uL Normal 0.10-1.20 [facility] Comment on above: Performed By: #### B SHANTE, CDP #### [facility] [address] [place], [place] [phone] Eradicator: Alexey Rob MD Monocytes/100 WBC (Bld) 9 % Normal 3-12 [facility] Comment on above: Performed By: #### B MP, CDP #### [facility] [address] [place] [address] Eradicator: Alexey Rob MD Neutrophil (Seg) 63 % Normal 36-65 [facility] Comment on above: Performed By: #### B MP, CDP #### [facility] [address] [place], [place] [phone] Eradicator: Alexey Rob MD NRBC Automated 0.0 per 100 WBC Normal 0.0 [facility] Comment on above: Performed By: #### B MP, CDP #### [facility] [address] [place], [place] [phone] Eradicator: Alexey Rob MD Platelet mean volume (Bld) [Entitic vol] 9.6 fL Normal 8.1-13.5 [facility] Comment on above: Performed By: #### B MP, CDP #### [address] [place], [place] [phone] Eradicator: Alexey Rob MD Platelets (Bld) [#/Vol] 205 10*3/uL Normal 138-453 [facility] Comment on above: Performed By: #### B MP, CDP #### [address] [place], [place] [phone] Eradicator: Alexey Rob MD RBC (Bld) [#/Vol] 4.78 10*6/uL Normal 3.95-5.11 [facility] Comment on above: Performed By: #### B MP, CDP #### [address] [place], [place] [phone] Eradicator: Alexey Rob MD WBC (Bld) [#/Vol] 8.0 10*3/uL Normal 3.5-11.3 [facility] Comment on above: Performed By: #### B MP, CDP #### [facility] [address] [place], [place] [phone] Eradicator: Alexey Rob MD MRSA, DNA, Nasalon 3 Specimen Description .NASAL SWAB Normal [facility] Comment on above: Performed By: #### M RSANO #### [facility] [address] [place], [place] [id number] Eradicator: Jose Miguel Davis MD [facility] [address] [place] [address] Eradicator: Alexey Rob MD Type + Screenon 09-08-2023 Type + Screen Sample Expiration 10/06/2023,2359 Arm Band Number [id number] ABO/Rh(D) A POSITIVE Antibody Screen NEGATIVE Normal [facility] Comment on above: Performed By: #### T YS #### [facility] [address] [place] [address] Eradicator: Alexey Rob MD Alanine aminotransferase [En zymatic activity/volume] in Serum or PlasmaOrdered By: Rose Ohara on 08-09-2023 ALT [Catalytic activity/Vol] 13 U/L 7-52 [facility] Albumin [Mass/volume] in Ser um or Plasma by Bromocresol green (BCG) dye binding methoOrdered By: Rose Ohara on 08-09-2023 Albumin BCG dye [Mass/Vol] 4.5 g/dL 3.5-5.7 [facility] Alkaline phosphatase [Enzyma tic activity/volume] in Serum or PlasmaOrdered By: Rose Ohara on 08-09-2023 ALP [Catalytic activity/Vol] 48 U/L 34-104 [facility] Aspartate aminotransferase [ Enzymatic activity/volume] in Serum or PlasmaOrdered By: Rose Ohara on 08-09-2023 AST [Catalytic activity/Vol] 11 U/L 13-39 [facility] Basophils Auto (Bld) [#/Vol] Ordered By: Rose Ohara on 08-09-2023 Basophils (Bld) [#/Vol] 0.1 10*3/uL 0.0-0.2 [facility] Basophils/100 WBC Auto (Bld) Ordered By: Rose Ohara on 08-09-2023 Basophils/100 WBC (Bld) 1.3 % . [facility] Bilirubin.total [Mass/volume ] in Serum or PlasmaOrdered By: Rose Ohara on 08-09-2023 Bilirubin [Mass/Vol] 1.1 mg/dL 0.3-1.0 [facility] Calcium [Mass/volume] in Ser um or PlasmaOrdered By: Rose Ohara on 08-09-2023 Calcium [Mass/Vol] 9.8 mg/dL 8.6-10.3 [facility] Carbon dioxide, total [Moles /volume] in Serum or PlasmaOrdered By: Rose Ohara on 08-09-2023 CO2 [Moles/Vol] 27.9 mmol/L 21.0-31.0 [facility] Chloride [Moles/volume] in S marlena or PlasmaOrdered By: Rose Ohara on 08-09-2023 Chloride [Moles/Vol] 104 mmol/L 98-107 [facility] Creatinine [Mass/volume] in Serum or PlasmaOrdered By: Rose Ohara on 08-09-2023 Creatinine [Mass/Vol] 0.86 mg/dL 0.60-1.20 [facility] Eosinophils Auto (Bld) [#/Vo l]Ordered By: Rose Ohara on 08-09-2023 Eosinophils (Bld) [#/Vol] 0.1 10*3/uL 0.0-0.45 [facility] Eosinophils/100 WBC Auto (Bl d)Ordered By: Rose Ohara on 08-09-2023 Eosinophils/100 WBC (Bld) 1.9 % . [facility] Erythrocyte distribution wid th Auto (RBC) [Ratio]Ordered By: Rose Ohara on 08-09-2023 Erythrocyte distribution width (RBC) [Ratio] 14.5 % 11.9-15.3 [facility] Globulin Calc (S) [Mass/Vol] Ordered By: Rose Ohara on 08-09-2023 Globulin (S) [Mass/Vol] 2.5 g/dL [facility] Glucose [Mass/volume] in Ser um or PlasmaOrdered By: Rose Ohara on 08-09-2023 Glucose [Mass/Vol] 168 mg/dL 70-100 [facility] Comment on above: ADA recommended refe rence rangeRandom Glucose Reference Range is dependent on time and content of last meal. Glucose of more than 200 mg/dL in a nonstressed, ambulatory subject supports the diagnosis of Diabetes Mellitus. Hematocrit Auto (Bld) [Volum e fraction]Ordered By: Rose Ohara on 08-09-2023 Hematocrit (Bld) [Volume fraction] 41.7 % 34.0-46.4 [facility] Hemoglobin [Mass/volume] in BloodOrdered By: Rose Ohara on 08-09-2023 Hemoglobin (Bld) [Mass/Vol] 13.6 g/dL 11.8-15.4 [facility] Lactate dehydrogenase [Enzym atic activity/volume] in Serum or Plasma by Lactate to pyOrdered By: Rose Ohara on 08-09-2023 LDH Lactate to pyruvate reaction [Catalytic activity/Vol] 135 U/L 140-271 [facility] Leukocytes [#/volume] correc jin for nucleated erythrocytes in Blood by Automated counOrdered By: Rose Ohara on 08-09-2023 WBC corrected for nucl RBC Auto (Bld) [#/Vol] 6.5 10*3/uL 3.8-11.6 [facility] Lymphocytes Auto (Bld) [#/Vo l]Ordered By: Rose Ohara on 08-09-2023 Lymphocytes (Bld) [#/Vol] 1.6 10*3/uL 1.00-4.8 [facility] Lymphocytes/100 WBC Auto (Bl d)Ordered By: Rose Ohara on 08-09-2023 Lymphocytes/100 WBC (Bld) 23.9 % . [facility] MCH Auto (RBC) [Entitic mass ]Ordered By: Rose Ohara on 08-09-2023 MCH (RBC) [Entitic mass] 29.6 pg 24.7-34.3 [facility] MCHC Auto (RBC) [Mass/Vol]Or dered By: Rose Ohara on 08-09-2023 MCHC (RBC) [Mass/Vol] 32.6 g/dL 32.0-35.0 [facility] MCV Auto (RBC) [Entitic vol] Ordered By: Rose Ohara on 08-09-2023 MCV (RBC) [Entitic vol] 90.7 fL 80-100 [facility] Monocytes Auto (Bld) [#/Vol] Ordered By: Rose Ohara on 08-09-2023 Monocytes (Bld) [#/Vol] 0.6 10*3/uL 0.0-0.8 [facility] Monocytes/100 WBC Auto (Bld) Ordered By: Rose Ohara on 08-09-2023 Monocytes/100 WBC (Bld) 9.2 % . [facility] Neutrophils Auto (Bld) [#/Vo l]Ordered By: Rose Ohara on 08-09-2023 Neutrophils (Bld) [#/Vol] 4.1 10*3/uL 1.8-7.7 [facility] Neutrophils/100 WBC Auto (Bl d)Ordered By: Rose Ohara on 08-09-2023 Neutrophils/100 WBC (Bld) 63.7 % . [facility] No Panel InformationOrdered By: Rose Ohara on 08-09-2023 Estimated GFR (CKD-EPI) > 60.0 mL/Min [facility] Creatinine Clearance (Chem 64.19 [facility] Nucleated erythrocytes [Pres ence] in Blood by Automated countOrdered By: Rose Ohara on 08-09-2023 Nucleated RBC Auto Ql (Bld) 0.1 /100{WBC} 0-0.5 [facility] Platelet mean volume Auto (B ld) [Entitic vol]Ordered By: Rose Ohara on 08-09-2023 Platelet mean volume (Bld) [Entitic vol] 7.8 fL 6.3-10.7 [facility] Platelets Auto (Bld) [#/Vol] Ordered By: Rose Ohara on 08-09-2023 Platelets (Bld) [#/Vol] 200 10*3/uL 150-450 [facility] Potassium [Moles/volume] in Serum or PlasmaOrdered By: Rose Ohara on 08-09-2023 Potassium [Moles/Vol] 5.1 mmol/L 3.5-5.1 [facility] Protein [Mass/volume] in Ser um or PlasmaOrdered By: Rose Ohara on 08-09-2023 Protein [Mass/Vol] 7.0 g/dL 6.4-8.9 [facility] RBC Auto (Bld) [#/Vol]Ordere d By: Rose Ohara on 08-09-2023 RBC (Bld) [#/Vol] 4.59 10*6/uL 3.60-5.00 [facility] Serum or plasma albumin/glob ulin mass ratioOrdered By: Rose Ohara on 08-09-2023 Albumin/Globulin [Mass ratio] 1.8 {ratio} [facility] Serum or plasma anion gap de terminationOrdered By: Rose Ohara on 08-09-2023 Anion gap [Moles/Vol] 13.2 mmol/L 6.0-15.0 [facility] Sodium [Moles/volume] in Ser um or PlasmaOrdered By: Rose Ohara on 08-09-2023 Sodium [Moles/Vol] 140 mmol/L 136-145 [facility] Urea nitrogen [Mass/volume] in Serum or PlasmaOrdered By: Rose Ohara on 08-09-2023 Urea nitrogen [Mass/Vol] 26 mg/dL 7-25 [facility] WBC Auto (Bld) [#/Vol]Ordere d By: Rose Ohara on 08-09-2023 WBC (Bld) [#/Vol] 6.5 10*3/uL 3.8-11.6 [facility] Alanine aminotransferase [En zymatic activity/volume] in Serum or PlasmaOrdered By: Rose Ohara on 04-12-2023 ALT [Catalytic activity/Vol] 17 U/L 7-52 [facility] Albumin [Mass/volume] in Ser um or Plasma by Bromocresol green (BCG) dye binding methoOrdered By: Rose Ohara on 04-12-2023 Albumin BCG dye [Mass/Vol] 4.1 g/dL 3.5-5.7 [facility] Alkaline phosphatase [Enzyma tic activity/volume] in Serum or PlasmaOrdered By: Rose Ohara on 04-12-2023 ALP [Catalytic activity/Vol] 57 U/L 34-104 [facility] Aspartate aminotransferase [ Enzymatic activity/volume] in Serum or PlasmaOrdered By: Rose Ohara on 04-12-2023 AST [Catalytic activity/Vol] 16 U/L 13-39 [facility] Basophils Auto (Bld) [#/Vol] Ordered By: Rose Ohara on 04-12-2023 Basophils (Bld) [#/Vol] 0.1 10*3/uL 0.0-0.2 [facility] Basophils/100 WBC Auto (Bld) Ordered By: Rose Ohara on 04-12-2023 Basophils/100 WBC (Bld) 0.9 % . [facility] Bilirubin.total [Mass/volume ] in Serum or PlasmaOrdered By: Rose Ohara on 04-12-2023 Bilirubin [Mass/Vol] 0.9 mg/dL 0.3-1.0 [facility] Calcium [Mass/volume] in Ser um or PlasmaOrdered By: Rose Ohara on 04-12-2023 Calcium [Mass/Vol] 9.1 mg/dL 8.6-10.3 [facility] Carbon dioxide, total [Moles /volume] in Serum or PlasmaOrdered By: Rose Ohara on 04-12-2023 CO2 [Moles/Vol] 27.2 mmol/L 21.0-31.0 [facility] Chloride [Moles/volume] in S marlena or PlasmaOrdered By: Rose Ohara on 04-12-2023 Chloride [Moles/Vol] 102 mmol/L 98-107 [facility] Creatinine [Mass/volume] in Serum or PlasmaOrdered By: Rose Ohara on 04-12-2023 Creatinine [Mass/Vol] 1.01 mg/dL 0.60-1.20 [facility] Eosinophils Auto (Bld) [#/Vo l]Ordered By: Rose Ohara on 04-12-2023 Eosinophils (Bld) [#/Vol] 0.2 10*3/uL 0.0-0.45 [facility] Eosinophils/100 WBC Auto (Bl d)Ordered By: Rose Ohara on 04-12-2023 Eosinophils/100 WBC (Bld) 2.2 % . [facility] Erythrocyte distribution wid th Auto (RBC) [Ratio]Ordered By: Rose Ohara on 04-12-2023 Erythrocyte distribution width (RBC) [Ratio] 14.7 % 11.9-15.3 [facility] Globulin Calc (S) [Mass/Vol] Ordered By: Rose Ohara on 04-12-2023 Globulin (S) [Mass/Vol] 2.6 g/dL [facility] Glucose [Mass/volume] in Ser um or PlasmaOrdered By: Rose Ohara on 04-12-2023 Glucose [Mass/Vol] 203 mg/dL 70-100 [facility] Comment on above: ADA recommended refe rence rangeRandom Glucose Reference Range is dependent on time and content of last meal. Glucose of more than 200 mg/dL in a nonstressed, ambulatory subject supports the diagnosis of Diabetes Mellitus. Hematocrit Auto (Bld) [Volum e fraction]Ordered By: Rose Ohara on 04-12-2023 Hematocrit (Bld) [Volume fraction] 41.4 % 34.0-46.4 [facility] Hemoglobin [Mass/volume] in BloodOrdered By: Rose Ohara on 04-12-2023 Hemoglobin (Bld) [Mass/Vol] 13.5 g/dL 11.8-15.4 [facility] Lactate dehydrogenase [Enzym atic activity/volume] in Serum or Plasma by Lactate to pyOrdered By: Rose Ohara on 04-12-2023 LDH Lactate to pyruvate reaction [Catalytic activity/Vol] 120 U/L 140-271 [facility] Leukocytes [#/volume] correc jin for nucleated erythrocytes in Blood by Automated counOrdered By: Rose Ohara on 04-12-2023 WBC corrected for nucl RBC Auto (Bld) [#/Vol] 6.9 10*3/uL 3.8-11.6 [facility] Lymphocytes Auto (Bld) [#/Vo l]Ordered By: Rose Ohara on 04-12-2023 Lymphocytes (Bld) [#/Vol] 1.8 10*3/uL 1.00-4.8 [facility] Lymphocytes/100 WBC Auto (Bl d)Ordered By: Rose Ohara on 04-12-2023 Lymphocytes/100 WBC (Bld) 26.0 % . [facility] MCH Auto (RBC) [Entitic mass ]Ordered By: Rose Ohara on 04-12-2023 MCH (RBC) [Entitic mass] 29.3 pg 24.7-34.3 [facility] MCHC Auto (RBC) [Mass/Vol]Or dered By: Rose Ohara on 04-12-2023 MCHC (RBC) [Mass/Vol] 32.7 g/dL 32.0-35.0 [facility] MCV Auto (RBC) [Entitic vol] Ordered By: Rose Ohara on 04-12-2023 MCV (RBC) [Entitic vol] 89.4 fL 80-100 [facility] Monocytes Auto (Bld) [#/Vol] Ordered By: Rose Ohara on 04-12-2023 Monocytes (Bld) [#/Vol] 0.6 10*3/uL 0.0-0.8 [facility] Monocytes/100 WBC Auto (Bld) Ordered By: Rose Ohara on 04-12-2023 Monocytes/100 WBC (Bld) 8.6 % . [facility] Neutrophils Auto (Bld) [#/Vo l]Ordered By: Rose Ohara on 04-12-2023 Neutrophils (Bld) [#/Vol] 4.3 10*3/uL 1.8-7.7 [facility] Neutrophils/100 WBC Auto (Bl d)Ordered By: Rose Ohara on 04-12-2023 Neutrophils/100 WBC (Bld) 62.3 % . [facility] No Panel InformationOrdered By: Rose Ohara on 04-12-2023 Estimated GFR (CKD-EPI) 58.780 mL/Min [facility] Creatinine Clearance (Chem 54.77 [facility] Nucleated erythrocytes [Pres ence] in Blood by Automated countOrdered By: Rose Ohara on 04-12-2023 Nucleated RBC Auto Ql (Bld) 0.1 /100{WBC} 0-0.5 [facility] Platelet mean volume Auto (B ld) [Entitic vol]Ordered By: Rose Ohara on 04-12-2023 Platelet mean volume (Bld) [Entitic vol] 8.3 fL 6.3-10.7 [facility] Platelets Auto (Bld) [#/Vol] Ordered By: Rose Ohara on 04-12-2023 Platelets (Bld) [#/Vol] 197 10*3/uL 150-450 [facility] Potassium [Moles/volume] in Serum or PlasmaOrdered By: Rose Ohara on 04-12-2023 Potassium [Moles/Vol] 4.8 mmol/L 3.5-5.1 [facility] Protein [Mass/volume] in Ser um or PlasmaOrdered By: Rose Ohara on 04-12-2023 Protein [Mass/Vol] 6.7 g/dL 6.4-8.9 [facility] RBC Auto (Bld) [#/Vol]Ordere d By: Rose Ohara on 04-12-2023 RBC (Bld) [#/Vol] 4.62 10*6/uL 3.60-5.00 [facility] Serum or plasma albumin/glob ulin mass ratioOrdered By: Rose Ohara on 04-12-2023 Albumin/Globulin [Mass ratio] 1.6 {ratio} [facility] Serum or plasma anion gap de terminationOrdered By: Rose Ohara on 04-12-2023 Anion gap [Moles/Vol] 15.6 mmol/L 6.0-15.0 [facility] Sodium [Moles/volume] in Ser um or PlasmaOrdered By: Rose Ohara on 04-12-2023 Sodium [Moles/Vol] 140 mmol/L 136-145 [facility] Urea nitrogen [Mass/volume] in Serum or PlasmaOrdered By: Rose Ohara on 04-12-2023 Urea nitrogen [Mass/Vol] 34 mg/dL 7-25 [facility] WBC Auto (Bld) [#/Vol]Ordere d By: Rose Ohara on 04-12-2023 WBC (Bld) [#/Vol] 6.9 10*3/uL 3.8-11.6 [facility] LIPID PROFILEon 03-03-2023 CHOL-HDL RATIO NORM SEE BELOW Normal [facility] Comment on above: Result Comment: 3.3 - 4.4 LOW RISK 4.4 - 7.1 AVERAGE RISK 7.1 - 11.0 MODERATE RISK >11.0 HIGH RISK Performed By: #### L IPID #### [facility] [address] [address] [address] Claudia Branch Cholesterol [Mass/Vol] 129 mg/dL Normal <=200 [facility] Comment on above: Performed By: #### L IPID #### [facility] [address] [place], [place] [address] Dr. Claudia Branch Cholesterol in HDL [Mass/Vol] 43 mg/dL Normal 40-60 [facility] Comment on above: Performed By: #### L IPID #### [facility] [address] [address] [address] Claudia Branch Cholesterol in LDL [Mass/Vol] 34.4 mg/dL Normal [facility] Comment on above: Performed By: #### L IPID #### [facility] [address] [address] [address] Claudia Branch Cholesterol.total/Cho lesterol in HDL [Mass ratio] 3.0 {ratio} Normal [facility] Comment on above: Performed By: #### L IPID #### [facility] [address] [address] [address] Claudia Branch HDL NORMAL > or = 60 mg/dl - LO W CARDIOVASCULAR RISK <40 mg/dl - HIGH CARDIOVASCULAR RISK Normal [facility] Comment on above: Performed By: #### L IPID #### [facility] [address] [place] [address] Dr. Claudia Branch LDL CALC NORMAL SEE BELOW Normal [facility] Comment on above: Result Comment: <100 mg/dl OPTIMAL 100 - 129 mg/dl NEAR OR ABOVE OPTIMAL 130 - 159 mg/dl BORDERLINE HIGH 160 - 189 mg/dl HIGH >190 mg/dl VERY HIGH Performed By: #### L IPID #### [facility] [address] [place] [address] Dr. Claudia Branch Triglyceride [Mass/Vol] 258 mg/dL Critically high <=150 [facility] Comment on above: Performed By: #### L IPID #### [facility] [address] [address] [address] Claudia Branch VLDL CALC 51.6 mg/dL Normal [facility] Comment on above: Performed By: #### L IPID #### [facility] [address] [address] [address] Claudia Branch PROF 14(COMP METB)on 023 Albumin [Mass/Vol] 3.7 g/dL Normal 3.4-5.0 [facility] Comment on above: Performed By: #### C MP #### [facility] [address] [place] [address] Dr. Claudia Branch Albumin/Globulin [Mass ratio] 1.1 {ratio} Normal [facility] Comment on above: Performed By: #### C MP #### [facility] [address] [address] [address] Claudia Branch ALP [Catalytic activity/Vol] 66 U/L Normal 46-116 [facility] Comment on above: Performed By: #### C MP #### [facility] [address] [address] [address] Claudia Branch ALT [Catalytic activity/Vol] 22 U/L Normal 14-59 [facility] Comment on above: Performed By: #### C MP #### [facility] [address] [address] [address] Claudia Branch Anion gap [Moles/Vol] 15.4 mmol/L Normal [facility] Comment on above: Performed By: #### C MP #### [facility] [address] [address] [address] Claudia Branch AST [Catalytic activity/Vol] 14 U/L Critically low 15-37 [facility] Comment on above: Performed By: #### C MP #### [facility] [address] [address] [address] Claudia Branch Bilirubin [Mass/Vol] 1.0 mg/dL Normal 0.2-1.0 [facility] Comment on above: Performed By: #### C MP #### [facility] [address] [address] [address] Claudia Branch Calcium [Mass/Vol] 9.4 mg/dL Normal 8.5-10.1 [facility] Comment on above: Performed By: #### C MP #### [facility] [address] [address] [address] Claudia Branch Chloride [Moles/Vol] 102 mmol/L Normal 98-107 [facility] Comment on above: Performed By: #### C MP #### [facility] [address] [address] [address] Claudia Branch CO2 [Moles/Vol] 28.0 mmol/L Normal 21.0-32.0 [facility] Comment on above: Performed By: #### C MP #### [facility] [address] [address] [address] Claudia Branch Creatinine [Mass/Vol] 1.04 mg/dL Critically high 0.55-1.02 [facility] Comment on above: Performed By: #### C MP #### [facility] [address] [address] [address] Claudia Branch EGFR-AF BELGIAN >60 Normal >=60 [facility] Comment on above: Performed By: #### C MP #### [facility] [address] [address] [address] Claudia Branch EGFR-NON AF BELGIAN 52 mL/min/1.73m2 Critically low >=60 [facility] Comment on above: Performed By: #### C MP #### [facility] [address] [address] [address] Claudia Branch Globulin (S) [Mass/Vol] 3.5 g/dL Normal [facility] Comment on above: Performed By: #### C MP #### [facility] [address] [address] [address] Claudia Branch Glucose [Mass/Vol] 174 mg/dL Critically high 74-106 [facility] Comment on above: Performed By: #### C MP #### [facility] [address] [address] [address] Claudia Branch Potassium [Moles/Vol] 5.4 mmol/L Critically high 3.5-5.1 [facility] Comment on above: Performed By: #### C MP #### [facility] [address] [address] [address] Claudia Branch Protein [Mass/Vol] 7.2 g/dL Normal 6.4-8.2 [facility] Comment on above: Performed By: #### C MP #### [facility] [address] [address] [address] Claudia Branch Sodium [Moles/Vol] 140 mmol/L Normal 136-145 [facility] Comment on above: Performed By: #### C MP #### [facility] [address] [place], [place] [address] Dr. Claudia Branch Urea nitrogen [Mass/Vol] 26.0 mg/dL Critically high 7.0-18.0 [facility] Comment on above: Performed By: #### C MP #### [facility] [address] [address] [address] Claudia Branch Urea nitrogen/Creatinine [Mass ratio] 25.0 mg/mg Normal [facility] Comment on above: Performed By: #### C MP #### [facility] [address] [address] [address] Claudia Branch Estimated glomerular filtrat ion rate (GFR) non- AmericanOrdered By: Rose Ohara on 12-21-2022 GFR/1.73 sq M.predicted among non-blacks MDRD (S/P/Bld) [Vol rate/Area] > 60 mL/Min [facility] GFR/1.73 sq M.predicted among non-blacks MDRD (S/P/Bld) [Vol rate/Area] Estimated glomerular filtration rate (GFR) non- [facility] No Panel InformationOrdered By: Rose Ohara on 12-21-2022 Estimated GFR () > 60 mL/Min [facility] Comment on above: GFR estimated refere nce range: According to KDOQI guidelines, <60 ml/min/1.73m2 is sufficient to diagnose a patient with chronic kidney disease. Albumin [Mass/volume] in Ser um or PlasmaOrdered By: Rose Ohara on 09-22-2022 Albumin [Mass/Vol] 3.7 g/dL 3.2-5.5 [facility] Basophils Auto (Bld) [#/Vol] Ordered By: Rose Ohara on 09-22-2022 Basophils (Bld) [#/Vol] 0.1 10*3/uL 0.0-0.2 [facility] Basophils/100 WBC Auto (Bld) Ordered By: Rose Ohara on 09-22-2022 Basophils/100 WBC (Bld) 1.0 % . [facility] Creatinine and Glomerular fi ltration rate.predicted panel (S/P/Bld)Ordered By: Rose Ohara on 09-22-2022 Creatinine [Mass/Vol] 0.80 mg/dL 0.44-1.03 [facility] Eosinophils Auto (Bld) [#/Vo l]Ordered By: Rose Ohara on 09-22-2022 Eosinophils (Bld) [#/Vol] 0.1 10*3/uL 0.0-0.45 [facility] Eosinophils/100 WBC Auto (Bl d)Ordered By: Rose Ohara on 09-22-2022 Eosinophils/100 WBC (Bld) 2.0 % . [facility] Erythrocyte distribution wid th Auto (RBC) [Ratio]Ordered By: Rose Ohara on 09-22-2022 Erythrocyte distribution width (RBC) [Ratio] 14.7 % 11.9-15.3 [facility] Estimated glomerular filtrat ion rate (GFR) non- AmericanOrdered By: Rose Ohara on 09-22-2022 GFR/1.73 sq M.predicted among non-blacks MDRD (S/P/Bld) [Vol rate/Area] > 60 mL/Min [facility] Globulin Calc (S) [Mass/Vol] Ordered By: Rose Ohara on 09-22-2022 Globulin (S) [Mass/Vol] 2.8 g/dL [facility] Hematocrit Auto (Bld) [Volum e fraction]Ordered By: Rose Ohara on 09-22-2022 Hematocrit (Bld) [Volume fraction] 43.2 % 34.0-46.4 [facility] Hemoglobin [Mass/volume] in BloodOrdered By: Rose Ohara on 09-22-2022 Hemoglobin (Bld) [Mass/Vol] 13.9 g/dL 11.8-15.4 [facility] - Hematology and Cell countsOrdered By: Rose Ohara on 09-22-2022 Nucleated RBC/100 WBC (Bld) [Ratio] 0.1 % 0-0.5 [facility] Lactate dehydrogenase measur ement (enzymatic activity/volume)Ordered By: Rose Ohara on 09-22-2022 LDH (Unsp spec) [Catalytic activity/Vol] 106 U/L 45-190 [facility] Leukocytes [#/volume] in Blo od by Automated countOrdered By: Rose Ohara on 09-22-2022 WBC (Bld) [#/Vol] 6.9 10*3/uL 4.5-11.0 [facility] Lymphocytes Auto (Bld) [#/Vo l]Ordered By: Rose Ohara on 09-22-2022 Lymphocytes (Bld) [#/Vol] 1.5 10*3/uL 1.00-4.8 [facility] Lymphocytes/100 WBC Auto (Bl d)Ordered By: Rose Ohara on 09-22-2022 Lymphocytes/100 WBC (Bld) 21.6 % . [facility] MCH Auto (RBC) [Entitic mass ]Ordered By: Rose Ohara on 09-22-2022 MCH (RBC) [Entitic mass] 29.0 pg 24.7-34.3 [facility] MCHC Auto (RBC) [Mass/Vol]Or dered By: Rose Ohara on 09-22-2022 MCHC (RBC) [Mass/Vol] 32.2 g/dL 32.0-35.0 [facility] MCV Auto (RBC) [Entitic vol] Ordered By: Rose Ohara on 09-22-2022 MCV (RBC) [Entitic vol] 90.2 fL 80-100 [facility] Monocytes Auto (Bld) [#/Vol] Ordered By: Rose Ohara on 09-22-2022 Monocytes (Bld) [#/Vol] 0.7 10*3/uL 0.0-0.8 [facility] Monocytes/100 WBC Auto (Bld) Ordered By: Rose Ohara on 09-22-2022 Monocytes/100 WBC (Bld) 9.7 % . [facility] Neutrophils Auto (Bld) [#/Vo l]Ordered By: Rose Ohara on 09-22-2022 Neutrophils (Bld) [#/Vol] 4.5 10*3/uL 1.8-7.7 [facility] Neutrophils/100 WBC Auto (Bl d)Ordered By: Rose Ohara on 09-22-2022 Neutrophils/100 WBC (Bld) 65.7 % . [facility] No Panel InformationOrdered By: Rose Ohara on 09-22-2022 Estimated GFR () > 60 mL/Min [facility] Comment on above: GFR estimated refere nce range: According to KDOQI guidelines, <60 ml/min/1.73m2 is sufficient to diagnose a patient with chronic kidney disease. Pharmacy Creatinine Clearance (Chem 70.04 [facility] Platelet mean volume Auto (B ld) [Entitic vol]Ordered By: Rose Ohara on 09-22-2022 Platelet mean volume (Bld) [Entitic vol] 8.0 fL 6.3-10.7 [facility] Platelets Auto (Bld) [#/Vol] Ordered By: Rose Ohara on 09-22-2022 Platelets (Bld) [#/Vol] 227 10*3/uL 150-450 [facility] Protein [Mass/volume] in Ser um or PlasmaOrdered By: Rose Ohara on 09-22-2022 Protein [Mass/Vol] 6.5 g/dL 6.1-7.9 [facility] RBC Auto (Bld) [#/Vol]Ordere d By: Rose Ohara on 09-22-2022 RBC (Bld) [#/Vol] 4.79 10*6/uL 3.60-5.00 [facility] Serum or plasma alanine mari otransferase measurement without P-5'-P (enzymatic activiOrdered By: Rose Ohara on 09-22-2022 ALT No additional P-5'-P [Catalytic activity/Vol] 16 U/L 10-60 [facility] Serum or plasma albumin/glob ulin mass ratioOrdered By: Rose Ohara on 09-22-2022 Albumin/Globulin [Mass ratio] 1.3 {ratio} [facility] Serum or plasma alkaline danial sphatase measurement (enzymatic activity/volume)Ordered By: Rose Ohara on 09-22-2022 ALP [Catalytic activity/Vol] 45 U/L 32-92 [facility] Serum or plasma anion gap de terminationOrdered By: Rose Ohara on 09-22-2022 Anion gap [Moles/Vol] 11.0 mmol/L 6.0-15.0 [facility] Serum or plasma aspartate am inotransferase measurement (enzymatic activity/volume)Ordered By: Rose Ohara on 09-22-2022 AST [Catalytic activity/Vol] 17 U/L 10- [facility] Serum or plasma calcium kandi urement (mass/volume)Ordered By: Rose Ohara on 09-22-2022 Calcium [Mass/Vol] 9.2 mg/dL 8.2-10.2 [facility] Serum or plasma chloride florentino surement (moles/volume)Ordered By: Rose Ohara on 09-22-2022 Chloride [Moles/Vol] 99 mmol/L 95-114 [facility] Serum or plasma glucose kandi urement (mass/volume)Ordered By: Rose Ohara on 09-22-2022 Glucose [Mass/Vol] 113 mg/dL 70-100 [facility] Comment on above: ADA recommended refe rence rangeRandom Glucose Reference Range is dependent on time and content of last meal. Glucose of more than 200 mg/dL in a nonstressed, ambulatory subject supports the diagnosis of Diabetes Mellitus. Serum or plasma potassium me asurement (moles/volume)Ordered By: Rose Ohara on 09-22-2022 Potassium [Moles/Vol] 4.3 mmol/L 3.5-5.1 [facility] Serum or plasma sodium measu rement (moles/volume)Ordered By: Rose Ohara on 09-22-2022 Sodium [Moles/Vol] 135 mmol/L 136-146 [facility] Serum or plasma total biliru bin measurement (mass/volume)Ordered By: Rose Ohara on 09-22-2022 Bilirubin [Mass/Vol] 1.2 mg/dL 0.3-1.2 [facility] Serum or plasma total carbon dioxide measurement (moles/volume)Ordered By: Rose Ohara on 09-22-2022 CO2 [Moles/Vol] 29.3 mmol/L 22.0-30.0 [facility] Serum or plasma urea nitroge n measurement (mass/volume)Ordered By: Rose Ohara on 09-22-2022 Urea nitrogen [Mass/Vol] 16 mg/dL 9-23 [facility] GLYCOHEMOGLOBIN A1Con 2021 ADA RECOMMENDATION SEE BELOW Normal [facility] Comment on above: Result Comment: ADA RECOMMENDED LIMIT 4.0 - 6.0 ADA THERAPEUTIC TARGET < 7.0 ACTION SUGGESTED > 7.0 Performed By: #### A 1C #### [facility] [address] [address] [address] Claudia Branch Glucose [Mass/Vol] 169 mg/dL Normal [facility] Comment on above: Performed By: #### A 1C #### [facility] [address] [address] [address] Claudia Branch HbA1c (Bld) [Mass fraction] 7.5 % Critically high 4.5-6.2 [facility] Comment on above: Performed By: #### A 1C #### [facility] [address] [place] [address] Dr. Claudia Branch LIPID PROFILEon 08-26-2022 CHOL-HDL RATIO NORM SEE BELOW Normal [facility] Comment on above: Result Comment: 3.3 - 4.4 LOW RISK 4.4 - 7.1 AVERAGE RISK 7.1 - 11.0 MODERATE RISK >11.0 HIGH RISK Performed By: #### L IPID, CMP #### [facility] [address] [place] [address] Dr. Claudia Branch Cholesterol [Mass/Vol] 99 mg/dL Normal <=200 [facility] Comment on above: Performed By: #### L IPID, CMP #### [facility] [address] [place] [address] Dr. Claudia Branch Cholesterol in HDL [Mass/Vol] 45 mg/dL Normal 40-60 [facility] Comment on above: Performed By: #### L IPID, CMP #### [facility] [address] [address] [address] Claudia Branch Cholesterol in LDL [Mass/Vol] 22.6 mg/dL Normal [facility] Comment on above: Performed By: #### L IPID, CMP #### [facility] [address] [place] [address] Dr. Claudia Branch Cholesterol.total/Cho lesterol in HDL [Mass ratio] 2.2 {ratio} Normal [facility] Comment on above: Performed By: #### L IPID, CMP #### [facility] [address] [place] [address] Dr. Claudia Branch HDL NORMAL > or = 60 mg/dl - LO W CARDIOVASCULAR RISK <40 mg/dl - HIGH CARDIOVASCULAR RISK Normal [facility] Comment on above: Performed By: #### L IPID, CMP #### [facility] [address] [address] [address] Claudia Branch LDL CALC NORMAL SEE BELOW Normal [facility] Comment on above: Result Comment: <100 mg/dl OPTIMAL 100 - 129 mg/dl NEAR OR ABOVE OPTIMAL 130 - 159 mg/dl BORDERLINE HIGH 160 - 189 mg/dl HIGH >190 mg/dl VERY HIGH Performed By: #### L IPID, CMP #### [facility] [address] [address] [address] Claudia Branch Triglyceride [Mass/Vol] 157 mg/dL Critically high <=150 [facility] Comment on above: Performed By: #### L IPID, CMP #### [facility] [address] [address] [address] Claudia Branch VLDL CALC 31.4 mg/dL Normal [facility] Comment on above: Performed By: #### L IPID, CMP #### [facility] [address] [address] [address] Claudia Branch PROF 14(COMP METB)on 08-26- 022 Albumin [Mass/Vol] 3.9 g/dL Normal 3.4-5.0 [facility] Comment on above: Performed By: #### L IPID, CMP #### [facility] [address] [place] [address] Dr. Claudia Branch Albumin/Globulin [Mass ratio] 1.0 {ratio} Normal [facility] Comment on above: Performed By: #### L IPID, CMP #### [facility] [address] [place] [address] Dr. Claudia Branch ALP [Catalytic activity/Vol] 57 U/L Normal 46-116 [facility] Comment on above: Performed By: #### L IPID, CMP #### [facility] [address] [address] [address] Claudia Branch ALT [Catalytic activity/Vol] 22 U/L Normal 14-59 [facility] Comment on above: Performed By: #### L IPID, CMP #### [facility] [address] [address] [address] Claudia Branch Anion gap [Moles/Vol] 10.7 mmol/L Normal [facility] Comment on above: Performed By: #### L IPID, CMP #### [facility] [address] [address] [address] Claudia Branch AST [Catalytic activity/Vol] 11 U/L Critically low 15-37 [facility] Comment on above: Performed By: #### L IPID, CMP #### [facility] [address] [address] [address] Claudia Branch Bilirubin [Mass/Vol] 1.4 mg/dL Critically high 0.2-1.0 [facility] Comment on above: Performed By: #### L IPID, CMP #### [facility] [address] [place] [address] Dr. Claudia Branch Calcium [Mass/Vol] 9.3 mg/dL Normal 8.5-10.1 [facility] Comment on above: Performed By: #### L IPID, CMP #### [facility] [address] [place] [address] Dr. Claudia Branch Chloride [Moles/Vol] 103 mmol/L Normal 98-107 [facility] Comment on above: Performed By: #### L IPID, CMP #### [facility] [address] [place] [address] Dr. Claudia Branch CO2 [Moles/Vol] 31.2 mmol/L Normal 21.0-32.0 [facility] Comment on above: Performed By: #### L IPID, CMP #### [facility] [address] [place] [address] Dr. Claudia Branch Creatinine [Mass/Vol] 0.83 mg/dL Normal 0.55-1.02 [facility] Comment on above: Performed By: #### L IPID, CMP #### [facility] [address] [place] [address] Dr. Claudia Branch EGFR-AF BELGIAN >60 Normal >=60 [facility] Comment on above: Performed By: #### L IPID, CMP #### [facility] [address] [place] [address] Dr. Claudia Branch EGFR-NON AF BELGIAN >60 Normal >=60 [facility] Comment on above: Performed By: #### L IPID, CMP #### [facility] [address] [place] [address] Dr. Claudia Branch Globulin (S) [Mass/Vol] 3.6 g/dL Normal [facility] Comment on above: Performed By: #### L IPID, CMP #### [facility] [address] [place] [address] Dr. Claudia Branch Glucose [Mass/Vol] 114 mg/dL Critically high 74-106 [facility] Comment on above: Performed By: #### L IPID, CMP #### [facility] [address] [place] [address] Dr. Claudia Branch Potassium [Moles/Vol] 4.4 mmol/L Normal 3.5-5.1 [facility] Comment on above: Performed By: #### L IPID, CMP #### [facility] [address] [place] [address] Dr. Claudia Branch Protein [Mass/Vol] 7.5 g/dL Normal 6.4-8.2 [facility] Comment on above: Performed By: #### L IPID, CMP #### [facility] [address] [place] [address] Dr. Claudia Branch Sodium [Moles/Vol] 141 mmol/L Normal 136-145 [facility] Comment on above: Performed By: #### L IPID, CMP #### [facility] [address] [place] [address] Dr. Claudia Branch Urea nitrogen [Mass/Vol] 20.0 mg/dL Critically high 7.0-18.0 [facility] Comment on above: Performed By: #### L IPID, CMP #### [facility] [address] [place] [address] Dr. Claudia Branch Urea nitrogen/Creatinine [Mass ratio] 24.0 mg/mg Normal [facility] Comment on above: Performed By: #### L IPID, CMP #### [facility] [address] [place] [address] Dr. Claudia Branch GI PANEL (PCR)on 08-11-2022 Adenovirus F 40/41 Not detected Normal NOT DETECTED [facility] Comment on above: Performed By: #### G IPANEL #### [facility] [address] [place] [address] Dr. Claudia Branch Astrovirus Not detected Normal NOT DETECTED [facility] Comment on above: Performed By: #### G IPANEL #### [facility] [address] [place] [address] Dr. Claudia Branch C. Diff toxin A/B Detected Critically abnormal NOT DETECTED [facility] Comment on above: Performed By: #### G IPANEL #### [facility] [address] [place] [address] Dr. Claudia Branch Campylobacter Not detected Normal NOT DETECTED [facility] Comment on above: Performed By: #### G IPANEL #### [facility] [address] [place] [address] Dr. Claudia Branch Cryptosporidium Not detected Normal NOT DETECTED [facility] Comment on above: Performed By: #### G IPANEL #### [facility] [address] [place] [address] Dr. Claudia Branch Cyclos. Cayetanensis Not detected Normal NOT DETECTED [facility] Comment on above: Performed By: #### G IPANEL #### [facility] [address] [place] [address] Dr. Claudia Branch E. Coli O157 Not Applicable Normal Not Applicable [facility] Comment on above: Performed By: #### G IPANEL #### [facility] [address] [place] [address] Dr. Claudia Branch E. histolytica Not detected Normal NOT DETECTED [facility] Comment on above: Performed By: #### G IPANEL #### [facility] [address] [place] [address] Dr. Claudia Branch EAEC Not detected Normal NOT DETECTED [facility] Comment on above: Performed By: #### G IPANEL #### [facility] [address] [place] [address] Dr. Claudia Branch EIEC Not detected Normal NOT DETECTED [facility] Comment on above: Performed By: #### G IPANEL #### [facility] [address] [place] [address] Dr. Claudia Branch EPEC Not detected Normal NOT DETECTED [facility] Comment on above: Performed By: #### G IPANEL #### [facility] [address] [place] [address] Dr. Claudia Branch ETEC Not detected Normal NOT DETECTED [facility] Comment on above: Performed By: #### G IPANEL #### [facility] [address] [place] [address] Dr. Claudia Lan Lamblia Not detected Normal NOT DETECTED [facility] Comment on above: Performed By: #### G IPANEL #### [facility] [address] [place] [address] Dr. Claudia ROSE CONTROLS PASSED Normal [facility] Comment on above: Performed By: #### G IPANEL #### [facility] [address] [place] [address] Dr. Claudia MCKAY [facility] HEADER GI PANEL BACTERIA Normal [facility] Comment on above: Performed By: #### G IPANEL #### [facility] [address] [place] [address] Dr. Claudia RAMIREZ ECOLI GI PANEL DIARRHEAGEN IC E.COLI / SHIGELLA Normal [facility] Comment on above: Performed By: #### G IPANEL #### [facility] [address] [place] [address] Dr. Claudia RAMIREZ INFO SEE BELOW Normal [facility] Comment on above: Result Comment: EAEC - Enteroaggregative E. Coli EPEC- Enteropathogenic E. Coli ETEC- Enterotoxigenic E. Coli lt/st STEC- Shigella-like toxin-producing E. Coli stx1/stx2 EIEC- Shigella/Enteroinvasive E. Coli Performed By: #### G IPANEL #### [facility] [address] [place] [address] Dr. Claudia RAMIREZ PARASITES GI PANEL PARASITES Normal [facility] Comment on above: Performed By: #### G IPANEL #### [facility] [address] [address] [address] Claudia RAMIREZ VIRUS GI PANEL VIRUSES Normal [facility] Comment on above: Performed By: #### G IPANEL #### [facility] [address] [place] [address] Dr. Claudia Branch Norovirus GI/GII Not detected Normal NOT DETECTED [facility] Comment on above: Performed By: #### G IPANEL #### [facility] [address] [place] [address] Dr. Claudia Branch P. Shigelloides Not detected Normal NOT DETECTED [facility] Comment on above: Performed By: #### G IPANEL #### [facility] [address] [place] [address] Dr. Claudia Branch Rotavirus A Not detected Normal NOT DETECTED [facility] Comment on above: Performed By: #### G IPANEL #### [facility] [address] [place] [address] Dr. Claudia Branch Salmonella Not detected Normal NOT DETECTED [facility] Comment on above: Performed By: #### G IPANEL #### [facility] [address] [place] [address] Dr. Claudia Branch Sapovirus Not detected Normal NOT DETECTED [facility] Comment on above: Performed By: #### G IPANEL #### [facility] [address] [place] [address] Dr. Claudia Branch STEC Not detected Normal NOT DETECTED [facility] Comment on above: Performed By: #### G IPANEL #### [facility] [address] [place] [address] Dr. Claudia Branch Vibrio Not detected Normal NOT DETECTED [facility] Comment on above: Performed By: #### G IPANEL #### [facility] [address] [place] [address] Dr. Claudia Branch Vibrio Cholera Not detected Normal NOT DETECTED [facility] Comment on above: Performed By: #### G IPANEL #### [facility] [address] [place], [place] [address] Dr. Claudia Branch Y. Enterocolitica Not detected Normal NOT DETECTED [facility] Comment on above: Performed By: #### G IPANEL #### [facility] [address] [place], [place] [address] Dr. Claudia Branch Albumin [Mass/volume] in Ser um or PlasmaOrdered By: Rose Ohara on 06-29-2022 Albumin [Mass/Vol] 4.1 g/dL 3.2-5.5 [facility] Basophils Auto (Bld) [#/Vol] Ordered By: Rose Ohara on 06-29-2022 Basophils (Bld) [#/Vol] 0.1 10*3/uL 0.0-0.2 [facility] Basophils/100 WBC Auto (Bld) Ordered By: Rose Ohara on 06-29-2022 Basophils/100 WBC (Bld) 1.2 % . [facility] Blood hemoglobin measurement (mass/volume)Ordered By: Rose Ohara on 06-29-2022 Hemoglobin (Bld) [Mass/Vol] 15.0 g/dL 11.8-15.4 [facility] Blood leukocytes automated c ount (number/volume)Ordered By: Rose Ohara on 06-29-2022 WBC (Bld) [#/Vol] 8.4 10*3/uL 4.5-11.0 [facility] Creatinine and Glomerular fi ltration rate.predicted panel (S/P/Bld)Ordered By: Rose Ohara on 06-29-2022 Creatinine [Mass/Vol] 0.87 mg/dL 0.44-1.03 [facility] Eosinophils Auto (Bld) [#/Vo l]Ordered By: Rose Ohara on 06-29-2022 Eosinophils (Bld) [#/Vol] 0.3 10*3/uL 0.0-0.45 [facility] Eosinophils/100 WBC Auto (Bl d)Ordered By: Rose Ohara on 06-29-2022 Eosinophils/100 WBC (Bld) 3.7 % . [facility] Erythrocyte distribution wid th Auto (RBC) [Ratio]Ordered By: Rose Ohara on 06-29-2022 Erythrocyte distribution width (RBC) [Ratio] 14.9 % 11.9-15.3 [facility] Estimated glomerular filtrat ion rate (GFR) non- AmericanOrdered By: Rose Ohara on 06-29-2022 GFR/1.73 sq M.predicted among non-blacks MDRD (S/P/Bld) [Vol rate/Area] > 60 mL/Min [facility] Globulin Calc (S) [Mass/Vol] Ordered By: Rose Ohara on 06-29-2022 Globulin (S) [Mass/Vol] 3.0 g/dL [facility] Hematocrit Auto (Bld) [Volum e fraction]Ordered By: Rose Ohara on 06-29-2022 Hematocrit (Bld) [Volume fraction] 45.9 % 34.0-46.4 [facility] - Hematology and Cell countsOrdered By: Rose Ohara on 06-29-2022 Nucleated RBC/100 WBC (Bld) [Ratio] 0.1 % 0-0.5 [facility] Lactate dehydrogenase measur ement (enzymatic activity/volume)Ordered By: Rose Ohara on 06-29-2022 LDH (Unsp spec) [Catalytic activity/Vol] 131 U/L 45-190 [facility] Lymphocytes Auto (Bld) [#/Vo l]Ordered By: Rose Ohara on 06-29-2022 Lymphocytes (Bld) [#/Vol] 1.6 10*3/uL 1.00-4.8 [facility] Lymphocytes/100 WBC Auto (Bl d)Ordered By: Rose Ohara on 06-29-2022 Lymphocytes/100 WBC (Bld) 18.8 % . [facility] MCH Auto (RBC) [Entitic mass ]Ordered By: Rose Ohara on 06-29-2022 MCH (RBC) [Entitic mass] 29.8 pg 24.7-34.3 [facility] MCHC Auto (RBC) [Mass/Vol]Or dered By: Rose Ohara on 06-29-2022 MCHC (RBC) [Mass/Vol] 32.8 g/dL 32.0-35.0 [facility] MCV Auto (RBC) [Entitic vol] Ordered By: Rose Ohara on 06-29-2022 MCV (RBC) [Entitic vol] 91.0 fL 80-100 [facility] Monocytes Auto (Bld) [#/Vol] Ordered By: Rose Ohara on 06-29-2022 Monocytes (Bld) [#/Vol] 0.8 10*3/uL 0.0-0.8 [facility] Monocytes/100 WBC Auto (Bld) Ordered By: Rose Ohara on 06-29-2022 Monocytes/100 WBC (Bld) 9.5 % . [facility] Neutrophils Auto (Bld) [#/Vo l]Ordered By: Rose Ohara on 06-29-2022 Neutrophils (Bld) [#/Vol] 5.6 10*3/uL 1.8-7.7 [facility] Neutrophils/100 WBC Auto (Bl d)Ordered By: Rose Ohara on 06-29-2022 Neutrophils/100 WBC (Bld) 66.8 % . [facility] No Panel InformationOrdered By: Rose Ohara on 06-29-2022 Estimated GFR () > 60 mL/Min [facility] Comment on above: GFR estimated refere nce range: According to KDOQI guidelines, <60 ml/min/1.73m2 is sufficient to diagnose a patient with chronic kidney disease. Pharmacy Creatinine Clearance (Chem 64.07 [facility] Platelet mean volume Auto (B ld) [Entitic vol]Ordered By: Rose Ohara on 06-29-2022 Platelet mean volume (Bld) [Entitic vol] 7.9 fL 6.3-10.7 [facility] Platelets Auto (Bld) [#/Vol] Ordered By: Rose Ohara on 06-29-2022 Platelets (Bld) [#/Vol] 226 10*3/uL 150-450 [facility] Protein [Mass/volume] in Ser um or PlasmaOrdered By: Rose Ohara on 06-29-2022 Protein [Mass/Vol] 7.1 g/dL 6.1-7.9 [facility] RBC Auto (Bld) [#/Vol]Ordere d By: Rose Ohara on 06-29-2022 RBC (Bld) [#/Vol] 5.04 10*6/uL 3.60-5.00 [facility] Serum or plasma alanine mari otransferase measurement without P-5'-P (enzymatic activiOrdered By: Rose Ohara on 06-29-2022 ALT No additional P-5'-P [Catalytic activity/Vol] 27 U/L 10-60 [facility] Serum or plasma albumin/glob ulin mass ratioOrdered By: Rose Ohara on 06-29-2022 Albumin/Globulin [Mass ratio] 1.4 {ratio} [facility] Serum or plasma alkaline danial sphatase measurement (enzymatic activity/volume)Ordered By: Rose Ohara on 06-29-2022 ALP [Catalytic activity/Vol] 56 U/L 32-92 [facility] Serum or plasma aspartate am inotransferase measurement (enzymatic activity/volume)Ordered By: Rose Ohara on 06-29-2022 AST [Catalytic activity/Vol] 26 U/L 10-42 [facility] Serum or plasma calcium kandi urement (mass/volume)Ordered By: Rose Ohara on 06-29-2022 Calcium [Mass/Vol] 10.2 mg/dL 8.2-10.2 [facility] Serum or plasma chloride florentino surement (moles/volume)Ordered By: Rose Ohara on 06-29-2022 Chloride [Moles/Vol] 102 mmol/L 95-114 [facility] Serum or plasma glucose kandi urement (mass/volume)Ordered By: Rose Ohara on 06-29-2022 Glucose [Mass/Vol] 130 mg/dL 70-100 [facility] Comment on above: ADA recommended refe rence range Random Glucose Reference Range is dependent on time and content of last meal. Glucose of more than 200 mg/dL in a nonstressed, ambulatory subject supports the diagnosis of Diabetes Mellitus. Serum or plasma potassium me asurement (moles/volume)Ordered By: Rose Ohara on 06-29-2022 Potassium [Moles/Vol] 4.9 mmol/L 3.5-5.1 [facility] Serum or plasma sodium measu rement (moles/volume)Ordered By: Rose Ohara on 06-29-2022 Sodium [Moles/Vol] 139 mmol/L 136-146 [facility] Serum or plasma total biliru bin measurement (mass/volume)Ordered By: Rose Ohara on 06-29-2022 Bilirubin [Mass/Vol] 1.2 mg/dL 0.3-1.2 [facility] Serum or plasma total carbon dioxide measurement (moles/volume)Ordered By: Rose Lev on 06-29-2022 CO2 [Moles/Vol] 24.6 mmol/L 22.0-30.0 [facility] Serum or plasma urea nitroge n measurement (mass/volume)Ordered By: Rose Lev on 06-29-2022 Urea nitrogen [Mass/Vol] 21 mg/dL 07-30 [facility] BNPon 04-29-2022 Natriuretic peptide B (Bld) [Mass/Vol] 280.0 pg/mL Normal <=900.0 [facility] Comment on above: Performed By: #### B INTELLECTUAL PROPERTY MANAGER, BMP #### [facility] [address] [place] [address] Dr. Claudia Branch PROF CHEM 8 (BAS METB)on Anion gap [Moles/Vol] 17.9 mmol/L Normal [facility] Comment on above: Performed By: #### B INTELLECTUAL PROPERTY MANAGER, BMP #### [facility] [address] [place] [address] Dr. Claudia Branch Calcium [Mass/Vol] 8.9 mg/dL Normal 8.5-10.1 [facility] Comment on above: Performed By: #### B INTELLECTUAL PROPERTY MANAGER, BMP #### [facility] [address] [place] [address] Dr. Claudia Branch Chloride [Moles/Vol] 104 mmol/L Normal 98-107 [facility] Comment on above: Performed By: #### B INTELLECTUAL PROPERTY MANAGER, BMP #### [facility] [address] [address] [address] Claudia Branch CO2 [Moles/Vol] 23.2 mmol/L Normal 21.0-32.0 [facility] Comment on above: Performed By: #### B INTELLECTUAL PROPERTY MANAGER, BMP #### [facility] [address] [address] [address] Claudia Branch Creatinine [Mass/Vol] 1.04 mg/dL Critically high 0.55-1.02 [facility] Comment on above: Performed By: #### B INTELLECTUAL PROPERTY MANAGER, BMP #### [facility] [address] [address] [address] Claudia Branch EGFR-AF BELGIAN >60 Normal >=60 [facility] Comment on above: Performed By: #### B INTELLECTUAL PROPERTY MANAGER, BMP #### [facility] [address] [address] [address] Claudia Branch EGFR-NON AF BELGIAN 52 mL/min/1.73m2 Critically low >=60 [facility] Comment on above: Performed By: #### B INTELLECTUAL PROPERTY MANAGER, BMP #### [facility] [address] [address] [address] Claudia Branch Glucose [Mass/Vol] 254 mg/dL Critically high 74-106 [facility] Comment on above: Performed By: #### B INTELLECTUAL PROPERTY MANAGER, BMP #### [facility] [address] [address] [address] Claudia Branch Potassium [Moles/Vol] 5.1 mmol/L Normal 3.5-5.1 [facility] Comment on above: Performed By: #### B INTELLECTUAL PROPERTY MANAGER, BMP #### [facility] [address] [address] [address] Claudia Branch Sodium [Moles/Vol] 140 mmol/L Normal 136-145 [facility] Comment on above: Performed By: #### B INTELLECTUAL PROPERTY MANAGER, BMP #### [facility] [address] [address] [address] Claudia Branch Urea nitrogen [Mass/Vol] 25.0 mg/dL Critically high 7.0-18.0 [facility] Comment on above: Performed By: #### B INTELLECTUAL PROPERTY MANAGER, BMP #### [facility] [address] [address] [address] Claudia Branch Urea nitrogen/Creatinine [Mass ratio] 24.0 mg/mg Normal [facility] Comment on above: Performed By: #### B INTELLECTUAL PROPERTY MANAGER, BMP #### [facility] [address] [address] [address] Claudia Branch BASIC METABOLIC PANELon 06-0 Calcium [Mass/Vol] 9.7 mg/dL Normal 8.6-10.4 [facility] Comment on above: Performed By: #### 8 99, 34505 #### [facility] [address], [address] [place] [address] Sports Betting Manager: Baldemar Jones MD Chloride [Moles/Vol] 106 mmol/L Normal 98-110 [facility] Comment on above: Performed By: #### 8 99, 16989 #### [facility] [address], [address] [place] [address] Sports Betting Manager: Baldemar Jones MD CO2 [Moles/Vol] 24 mmol/L Normal 20-32 [facility] Comment on above: Performed By: #### 8 99, 83649 #### [facility] [address], [address] [place] [address] Sports Betting Manager: Baldemar Jones MD Creatinine [Mass/Vol] 1.32 mg/dL High 0.60-0.[address] [facility] Comment on above: Result Comment: For patients >49 years of age, the reference limit for Creatinine is approximately 13% higher for people identified as -[place]. Performed By: #### 8 99, 02176 #### [facility] [address], [address] [place] [address] Sports Betting Manager: Baldemar Jones MD eGFR NON-AFR. BELGIAN 40 mL/min/1.73m2 Low > OR = 60 [facility] Comment on above: Performed By: #### 8 99, 35025 #### [facility] [address], [address] [place] [address] Sports Betting Manager: Baldemar Jones MD GFR/1.73 sq M.predicted among blacks MDRD (S/P/Bld) [Vol rate/Area] 47 mL/min/{1.73_m2} Low > OR = 60 [facility] Comment on above: Performed By: #### 8 99, 71952 #### [facility] [address] [address] Sports Betting Manager: Baldemar Jones MD Glucose [Mass/Vol] 99 mg/dL Normal 65-99 [facility] Comment on above: Result Comment: Fasting reference interval Performed By: #### 8 99, 67306 #### [facility] of [address], [address] [place] [address] Sports Betting Manager: Baldemar Jones MD Potassium [Moles/Vol] 4.6 mmol/L Normal 3.5-5.3 [facility] Comment on above: Performed By: #### 8 99, 92264 #### [facility] [address] [place] [address] Sports Betting Manager: Baldemar Jones MD Sodium [Moles/Vol] 143 mmol/L Normal 135-146 [facility] Comment on above: Performed By: #### 8 99, 31007 #### [facility] [address] [place] [address] Sports Betting Manager: Baldemar Jones MD Urea nitrogen [Mass/Vol] 30 mg/dL High 7-25 [facility] Comment on above: Performed By: #### 8 99, 41996 #### [facility] [address] [place] [address] Sports Betting Manager: Baldemar Jones MD Urea nitrogen/Creatinine [Mass ratio] 23 mg/mg High 6-22 [facility] Comment on above: Performed By: #### 8 99, 43732 #### [facility] [address] [place] [address] Sports Betting Manager: Baldemar Jones MD TSHon 04-09-2022 TSH Qn 0.67 m[IU]/L Normal 0.40-4.50 [facility] Comment on above: Performed By: #### 8 99, 78894 #### [facility] [address] [place] [address] Sports Betting Manager: Baldemar Jones MD Albumin [Mass/volume] in Ser um or PlasmaOrdered By: Rose Ohara on 03-25-2022 Albumin [Mass/Vol] 3.8 g/dL 3.2-5.5 [facility] Basophils Auto (Bld) [#/Vol] Ordered By: Rose Ohara on 03-25-2022 Basophils (Bld) [#/Vol] 0.1 10*3/uL 0.0-0.2 [facility] Basophils/100 WBC Auto (Bld) Ordered By: Rose Ohara on 03-25-2022 Basophils/100 WBC (Bld) 1.1 % [facility] Blood hemoglobin measurement (mass/volume)Ordered By: Rose Ohara on 03-25-2022 Hemoglobin (Bld) [Mass/Vol] 14.2 g/dL 11.8-15.4 [facility] Blood leukocytes automated c ount (number/volume)Ordered By: Rose Ohara on 03-25-2022 WBC (Bld) [#/Vol] 7.4 10*3/uL 4.5-11.0 [facility] Creatinine and Glomerular fi ltration rate.predicted panel (S/P/Bld)Ordered By: Rose Ohara on 03-25-2022 Creatinine [Mass/Vol] 1.40 mg/dL 0.44-1.03 [facility] Eosinophils Auto (Bld) [#/Vo l]Ordered By: Rose Ohara on 03-25-2022 Eosinophils (Bld) [#/Vol] 0.2 10*3/uL 0.0-0.45 [facility] Eosinophils/100 WBC Auto (Bl d)Ordered By: Rose Ohara on 03-25-2022 Eosinophils/100 WBC (Bld) 2.6 % [facility] Erythrocyte distribution wid th Auto (RBC) [Ratio]Ordered By: Rose Ohara on 03-25-2022 Erythrocyte distribution width (RBC) [Ratio] 15.1 % 11.9-15.3 [facility] Estimated glomerular filtrat ion rate (GFR) non- AmericanOrdered By: Rose Ohara on 03-25-2022 GFR/1.73 sq M.predicted among non-blacks MDRD (S/P/Bld) [Vol rate/Area] 37 mL/Min [facility] Globulin Calc (S) [Mass/Vol] Ordered By: Rose Ohara on 03-25-2022 Globulin (S) [Mass/Vol] 2.5 g/dL [facility] Hematocrit Auto (Bld) [Volum e fraction]Ordered By: Rose Ohara on 03-25-2022 Hematocrit (Bld) [Volume fraction] 43.3 % 34.0-46.4 [facility] - Hematology and Cell countsOrdered By: Rose Ohara on 03-25-2022 Nucleated RBC/100 WBC (Bld) [Ratio] 0.1 % 0-0.5 [facility] Lactate dehydrogenase measur ement (enzymatic activity/volume)Ordered By: Rose Ohara on 03-25-2022 LDH (Unsp spec) [Catalytic activity/Vol] 111 U/L 45-190 [facility] Lymphocytes Auto (Bld) [#/Vo l]Ordered By: Rose Ohara on 03-25-2022 Lymphocytes (Bld) [#/Vol] 1.7 10*3/uL 1.00-4.8 [facility] Lymphocytes/100 WBC Auto (Bl d)Ordered By: Rose Ohara on 03-25-2022 Lymphocytes/100 WBC (Bld) 22.3 % [facility] MCH Auto (RBC) [Entitic mass ]Ordered By: Rose Ohara on 03-25-2022 MCH (RBC) [Entitic mass] 29.0 pg 24.7-34.3 [facility] MCHC Auto (RBC) [Mass/Vol]Or dered By: Rose Ohara on 03-25-2022 MCHC (RBC) [Mass/Vol] 32.8 g/dL 32.0-35.0 [facility] MCV Auto (RBC) [Entitic vol] Ordered By: Rose Ohara on 03-25-2022 MCV (RBC) [Entitic vol] 88.3 fL 80-100 [facility] Monocytes Auto (Bld) [#/Vol] Ordered By: Rose Ohara on 03-25-2022 Monocytes (Bld) [#/Vol] 0.7 10*3/uL 0.0-0.8 [facility] Monocytes/100 WBC Auto (Bld) Ordered By: Rose Ohara on 03-25-2022 Monocytes/100 WBC (Bld) 9.5 % [facility] Neutrophils Auto (Bld) [#/Vo l]Ordered By: Rose Ohara on 03-25-2022 Neutrophils (Bld) [#/Vol] 4.8 10*3/uL 1.8-7.7 [facility] Neutrophils/100 WBC Auto (Bl d)Ordered By: Rose Ohara on 03-25-2022 Neutrophils/100 WBC (Bld) 64.5 % [facility] No Panel InformationOrdered By: Rose Ohara on 03-25-2022 Estimated GFR () 45 mL/Min [facility] Comment on above: GFR estimated refere nce range: According to KDOQI guidelines, <60 ml/min/1.73m2 is sufficient to diagnose a patient with chronic kidney disease. Pharmacy Creatinine Clearance (Chem 39.92 [facility] Platelet mean volume Auto (B ld) [Entitic vol]Ordered By: Rose Ohara on 03-25-2022 Platelet mean volume (Bld) [Entitic vol] 8.2 fL 6.3-10.7 [facility] Platelets Auto (Bld) [#/Vol] Ordered By: Rose Ohara on 03-25-2022 Platelets (Bld) [#/Vol] 232 10*3/uL 150-450 [facility] Protein [Mass/volume] in Ser um or PlasmaOrdered By: Rose Ohara on 03-25-2022 Protein [Mass/Vol] 6.3 g/dL 6.1-7.9 [facility] RBC Auto (Bld) [#/Vol]Ordere d By: Rose Ohara on 03-25-2022 RBC (Bld) [#/Vol] 4.90 10*6/uL 3.60-5.00 [facility] Serum or plasma alanine mari otransferase measurement without P-5'-P (enzymatic activiOrdered By: Rose Ohara on 03-25-2022 ALT No additional P-5'-P [Catalytic activity/Vol] 23 U/L 10-60 [facility] Serum or plasma albumin/glob ulin mass ratioOrdered By: Rose Ohara on 03-25-2022 Albumin/Globulin [Mass ratio] 1.5 {ratio} [facility] Serum or plasma alkaline danial sphatase measurement (enzymatic activity/volume)Ordered By: Rose Ohara on 03-25-2022 ALP [Catalytic activity/Vol] 43 U/L 32-92 [facility] Serum or plasma aspartate am inotransferase measurement (enzymatic activity/volume)Ordered By: Rose Ohara on 03-25-2022 AST [Catalytic activity/Vol] 18 U/L 10-42 [facility] Serum or plasma calcium kandi urement (mass/volume)Ordered By: Rose Ohara on 03-25-2022 Calcium [Mass/Vol] 9.7 mg/dL 8.2-10.2 [facility] Serum or plasma chloride florentino surement (moles/volume)Ordered By: Rose Ohara on 03-25-2022 Chloride [Moles/Vol] 98 mmol/L 95-114 [facility] Serum or plasma glucose kandi urement (mass/volume)Ordered By: Rose Ohara on 03-25-2022 Glucose [Mass/Vol] 201 mg/dL 70-100 [facility] Comment on above: ADA recommended refe rence range Random Glucose Reference Range is dependent on time and content of last meal. Glucose of more than 200 mg/dL in a nonstressed, ambulatory subject supports the diagnosis of Diabetes Mellitus. Serum or plasma potassium me asurement (moles/volume)Ordered By: Rose Ohara on 03-25-2022 Potassium [Moles/Vol] 4.7 mmol/L 3.5-5.1 [facility] Serum or plasma sodium measu rement (moles/volume)Ordered By: Rose Ohara on 03-25-2022 Sodium [Moles/Vol] 139 mmol/L 136-146 [facility] Serum or plasma total biliru bin measurement (mass/volume)Ordered By: Rose Ohara on 03-25-2022 Bilirubin [Mass/Vol] 1.2 mg/dL 0.3-1.2 [facility] Serum or plasma total carbon dioxide measurement (moles/volume)Ordered By: Rose Ohara on 03-25-2022 CO2 [Moles/Vol] 27.4 mmol/L 22.0-30.0 [facility] Serum or plasma urea nitroge n measurement (mass/volume)Ordered By: Rose Lev on 03-25-2022 Urea nitrogen [Mass/Vol] 29 mg/dL 07-30 [facility] TSH DL <= 0.005 mIU/L QnOrde red By: Rose Ohara on 03-25-2022 TSH Qn 0.89 m[IU]/L 0.45-5.33 [facility] TSH Qn Serum or plasma thyr oid stimulating hormone (TSH) measurement by high sensitivity met 0.45-5.33 [facility] BASIC METABOLIC PANELon 04-0 BUN/CREATININE RATIO NOT APPLICABLE Normal - [facility] Comment on above: Order Comment: FASTI NG:YES FASTING: YES Performed By: #### 4 96, [id number] #### [facility] [address], [address] [place] [address] Sports Betting Manager: Baldemar Jones MD Calcium [Mass/Vol] 9.4 mg/dL Normal 8.6-10.4 [facility] Comment on above: Order Comment: FASTI NG:YES FASTING: YES Performed By: #### 4 96, 30419 #### [facility] [address] [place] [address] Sports Betting Manager: Baldemar Jones MD Chloride [Moles/Vol] 101 mmol/L Normal 98-110 [facility] Comment on above: Order Comment: FASTI NG:YES FASTING: YES Performed By: #### 4 96, 00754 #### [facility] [address] [place] [address] Sports Betting Manager: Baldemar Jones MD CO2 [Moles/Vol] 31 mmol/L Normal 20-32 [facility] Comment on above: Order Comment: FASTI NG:YES FASTING: YES Performed By: #### 4 96, 31645 #### [facility] [place] [address] Sports Betting Manager: Baldemar Jones MD Creatinine [Mass/Vol] 0.84 mg/dL Normal 0.60-0.93 [facility] [employer] Comment on above: Order Comment: FASTI NG:YES FASTING: YES Result Comment: For patients >49 years of age, the reference limit for Creatinine is approximately 13% higher for people identified as -[place]. Performed By: #### 4 96, 59811 #### [facility] [address], [address] [place] [address] Sports Betting Manager: Baldemar Jones MD eGFR NON-AFR. BELGIAN 69 mL/min/1.73m2 Normal > OR = 60 [facility] Comment on above: Order Comment: FASTI NG:YES FASTING: YES Performed By: #### 4 96, 29105 #### [facility] [address], [address] [place] [address] Sports Betting Manager: Baldemar Jones MD GFR/1.73 sq M.predicted among blacks MDRD (S/P/Bld) [Vol rate/Area] 80 mL/min/{1.73_m2} Normal > OR = 60 [facility] Comment on above: Order Comment: FASTI NG:YES FASTING: YES Performed By: #### 4 96, 60322 #### [facility] [address], [address] [place] [address] Sports Betting Manager: Baldemar Jones MD Glucose [Mass/Vol] 108 mg/dL High 65-99 [facility] Comment on above: Order Comment: FASTI NG:YES FASTING: YES Result Comment: Fasting reference interval For someone without known diabetes, a glucose value between 100 and 125 mg/dL is consistent with prediabetes and should be confirmed with a follow-up test. Performed By: #### 4 96, 16280 #### [facility] [address], [address] [place] [address] Sports Betting Manager: Baldemar Jones MD Potassium [Moles/Vol] 4.5 mmol/L Normal 3.5-5.3 [facility] Comment on above: Order Comment: FASTI NG:YES FASTING: YES Performed By: #### 4 96, 34739 #### [facility] [address], [address] [place] [address] Sports Betting Manager: Baldemar Jones MD Sodium [Moles/Vol] 143 mmol/L Normal 135-146 [facility] Comment on above: Order Comment: FASTI NG:YES FASTING: YES Performed By: #### 4 96, 45759 #### [facility] [address], [address] [place] [address] Sports Betting Manager: Baldemar Jones MD Urea nitrogen [Mass/Vol] 22 mg/dL Normal 7-25 [facility] Comment on above: Order Comment: FASTI NG:YES FASTING: YES Performed By: #### 4 96, 44414 #### [facility] [address], [address] [place] [address] Sports Betting Manager: Baldemar Jones MD HEMOGLOBIN A1con 02-13-2022 HEMOGLOBIN [...] for children. Performed By: #### 4 96, 26331 #### [facility] [address], [address] [place] [address] Sports Betting Manager: Baldemar Jones MD No Panel InformationOrdered By: Bang Nunez on 01-09-2022 Adrenocorticotropic Hormone 39.5 pg/mL 7.2-63.3 [facility] Comment on above: ACTH reference inter bernarda for samples collected between 7 and 10 AM. Performed at: [facility] [address] [id number] Eradicator: Braxton Austin PhD, Phone: [phone] ACTH reference inter bernarda for samples collected between 7 and10 AM.Performed at: [facility] [address] [id number] Director: Braxton Austin PhD, Phone: [phone] Thyroxine (T4) free [Mass/vo lume] in Serum or PlasmaOrdered By: Bang Nunez on 01-09-2022 Free T4 [Mass/Vol] 0.81 ng/dL 0.61-1.12 [facility] Free T4 [Mass/Vol] Thyroxine (T4) free [Mass/volume] in Serum or Plasma 0.61-1.12 [facility] B TYPE NATRIURETIC PEPTIDE ( BNP)on 12-03-2021 Natriuretic peptide B (Bld) [Mass/Vol] 67 pg/mL Normal <100 [facility] Comment on above: Result Comment: BNP levels increase with age in the general population with the highest values seen in individuals greater than 75 years of age. Reference: J. Am. Jim. Cardiol. 2002; 40:976-982. Performed By: #### 3 9786, 42936 #### [facility] [address], [address] [place] [address] Sports Betting Manager: Baldemar Jones MD BASIC METABOLIC PANELon 11-08 Calcium [Mass/Vol] 9.4 mg/dL Normal 8.6-10.4 [facility] Comment on above: Order Comment: FASTI NG:NO FASTING: NO Performed By: #### 3 6886, 59841 #### [facility] [address], [address] [place] [address] Sports Betting Manager: Baldemar Jones MD Chloride [Moles/Vol] 99 mmol/L Normal 98-110 [facility] Comment on above: Order Comment: FASTI NG:NO FASTING: NO Performed By: #### 3 7386, 97859 #### [facility] [address], [address] [place] [address] Sports Betting Manager: Baldemar Jones MD CO2 [Moles/Vol] 32 mmol/L Normal 20-32 [facility] Comment on above: Order Comment: FASTI NG:NO FASTING: NO Performed By: #### 3 7386, 78411 #### [facility] [address], [address] [place] [address] Sports Betting Manager: Baldemar Jones MD Creatinine [Mass/Vol] 0.90 mg/dL Normal 0.60-0.93 [facility] Comment on above: Order Comment: FASTI NG:NO FASTING: NO Result Comment: For patients >49 years of age, the reference limit for Creatinine is approximately 13% higher for people identified as -[place]. Performed By: #### 3 7386, 62146 #### [facility] [address], [address] [place] [address] Sports Betting Manager: Baldemar Jones MD eGFR NON-AFR. BELGIAN 64 mL/min/1.73m2 Normal > OR = 60 [facility] Comment on above: Order Comment: FASTI NG:NO FASTING: NO Performed By: #### 3 7386, 42722 #### [facility] [address], [address] [place] [address] Sports Betting Manager: Baldemar Jones MD GFR/1.73 sq M.predicted among blacks MDRD (S/P/Bld) [Vol rate/Area] 75 mL/min/{1.73_m2} Normal > OR = 60 [facility] Comment on above: Order Comment: FASTI NG:NO FASTING: NO Performed By: #### 3 7386, 71220 #### [facility] [address], [address] [place] [address] Sports Betting Manager: Baldemar Jones MD Glucose [Mass/Vol] 174 mg/dL High 65-139 [facility] Comment on above: Order Comment: FASTI NG:NO FASTING: NO Result Comment: Non-fasting reference interval For someone without known diabetes, a glucose value >125 mg/dL indicates that they may have diabetes and this should be confirmed with a follow-up test. Performed By: #### 3 7386, 93439 #### [facility] [address], [address] [place] [address] Sports Betting Manager: Baldemar Jones MD Potassium [Moles/Vol] 3.7 mmol/L Normal 3.5-5.3 [employer] [facility] Comment on above: Order Comment: FASTI NG:NO FASTING: NO Performed By: #### 3 7386, 67780 #### [facility] [address], [address] [place] [address] Sports Betting Manager: Baldemar Jones MD Sodium [Moles/Vol] 143 mmol/L Normal 135-146 [facility] Comment on above: Order Comment: FASTI NG:NO FASTING: NO Performed By: #### 3 7386, 89290 #### [facility] [address], [address] [place] [address] Sports Betting Manager: Baldemar Jones MD Urea nitrogen [Mass/Vol] 35 mg/dL High 05-31 [facility] Comment on above: Order Comment: FASTI NG:NO FASTING: NO Performed By: #### 3 7386, 92116 #### [facility] [address], [address] [place] [address] Sports Betting Manager: Baldemar Jones MD Urea nitrogen/Creatinine [Mass ratio] 39 mg/mg High 04-28 [facility] Comment on above: Order Comment: FASTI NG:NO FASTING: NO Performed By: #### 3 7386, 70940 #### [facility] [address], [address] [place] [address] Sports Betting Manager: Baldemar Jones MD ALBUMIN, RANDOM URINE W/CREA TININEon 10-02-2021 ALBUMIN, URINE 0.9 mg/dL Normal See Note: [facility] Comment on above: Result Comment: Refe rence Range: Reference Range Not established Performed By: #### 7 600, 6517, 82733 #### [facility] [address], [address] [place] [address] Sports Betting Manager: Baldemar Jones MD ALBUMIN/CREATININE RATIO, RANDOM URINE [...] category. Performed By: #### 7 600, 6517, 03019 #### [facility] [address], [address] [place] [address] Sports Betting Manager: Baldemar Jones MD Creatinine (U) [Mass/Vol] 69 mg/dL Normal 20-275 [facility] Comment on above: Performed By: #### 7 600, 6517, 35027 #### [facility] [place] [address] Sports Betting Manager: Baldemar Jones MD [facility] 10-02-2021 Albumin [Mass/Vol] 4.4 g/dL Normal 3.6-5.1 [facility] Comment on above: Performed By: #### 7 600, 6517, 72285 #### [facility] [place] [address] Sports Betting Manager: Baldemar Jones MD Albumin/Globulin [Mass ratio] 1.7 {ratio} Normal 1.0-2.5 [facility] Comment on above: Performed By: #### 7 600, 6517, 31860 #### [facility] [place] [address] Sports Betting Manager: Baldemar Jones MD ALP [Catalytic activity/Vol] 50 U/L Normal 37-153 [facility] Comment on above: Performed By: #### 7 600, 6517, 33096 #### [facility] [place] [address] Sports Betting Manager: Baldemar Jones MD ALT [Catalytic activity/Vol] 15 U/L Normal 6-29 [facility] Comment on above: Performed By: #### 7 600, 6517, 25697 #### [facility] [place] [address] Sports Betting Manager: Baldemar Jones MD AST [Catalytic activity/Vol] 15 U/L Normal 10-35 [facility] Comment on above: Performed By: #### 7 600, 6517, 77485 #### [facility] [place] [address] Sports Betting Manager: Baldemar Jones MD Bilirubin [Mass/Vol] 1.2 mg/dL Normal 0.2-1.2 [facility] Comment on above: Performed By: #### 7 600, 65, 55801 #### [facility] [place] [address] Sports Betting Manager: Baldemar Jones MD BUN/CREATININE RATIO NOT APPLICABLE Normal 6-22 [facility] Comment on above: Performed By: #### 7 600, 65, 90032 #### [facility] [place] [address] Sports Betting Manager: Baldemar Jones MD Calcium [Mass/Vol] 9.6 mg/dL Normal 8.6-10.4 [facility] Comment on above: Performed By: #### 7 600, 65, 40549 #### [facility] [place] [address] Sports Betting Manager: Baldemar Jones MD Chloride [Moles/Vol] 103 mmol/L Normal 98-110 [facility] Comment on above: Performed By: #### 7 600, 65, 01938 #### [facility] [place] [address] Sports Betting Manager: Baldemar Jones MD CO2 [Moles/Vol] 27 mmol/L Normal 20-32 [facility] Comment on above: Performed By: #### 7 600, 65, 33135 #### [facility] [place] [address] Sports Betting Manager: Baldemar Jones MD Creatinine [Mass/Vol] 0.81 mg/dL Normal 0.60-0.[address] [facility] Comment on above: Result Comment: For patients >49 years of age, the reference limit for Creatinine is approximately 13% higher for people identified as -[place]. Performed By: #### 7 600, 65, 40917 #### [facility] [place] [address] Sports Betting Manager: Baldemar Jones MD eGFR NON-AFR. BELGIAN 73 mL/min/1.73m2 Normal > OR = 60 [facility] Comment on above: Performed By: #### 7 600, 65, 56966 #### [facility] [address], [address] [place] [address] Sports Betting Manager: Baldemar Jones MD GFR/1.73 sq M.predicted among blacks MDRD (S/P/Bld) [Vol rate/Area] 85 mL/min/{1.73_m2} Normal > OR = 60 [facility] Comment on above: Performed By: #### 7 600, 65, 95346 #### [facility] [address], [address] [place] [address] Sports Betting Manager: Baldemar Jones MD Globulin (S) [Mass/Vol] 2.6 g/dL Normal 1.9-3.7 [facility] Comment on above: Performed By: #### 7 600, 65, 47792 #### [facility] [address], [address] [place] [address] Sports Betting Manager: Baldemar Jones MD Glucose [Mass/Vol] 109 mg/dL High 65-99 [facility] Comment on above: Result Comment: Fasting reference interval For someone without known diabetes, a glucose value between 100 and 125 mg/dL is consistent with prediabetes and should be confirmed with a follow-up test. Performed By: #### 7 600, 65, [id number] #### [facility] [address], [address] [place] [address] Sports Betting Manager: Baldemar Jones MD Potassium [Moles/Vol] 4.1 mmol/L Normal 3.5-5.[address] [facility] Comment on above: Performed By: #### 7 600, 65, 43167 #### [facility] of [address], [address] [place] [address] Sports Betting Manager: Baldemar Jones MD Protein [Mass/Vol] 7.0 g/dL Normal 6.1-8.1 [facility] Comment on above: Performed By: #### 7 600, 65, 02432 #### [facility] [address], [address] [place] [address] Sports Betting Manager: Baldemar Jones MD Sodium [Moles/Vol] 143 mmol/L Normal 135-146 [facility] Comment on above: Performed By: #### 7 600, 6517, 93367 #### [facility] [place] [address] Sports Betting Manager: Baldemar Jones MD Urea nitrogen [Mass/Vol] 19 mg/dL Normal 7-25 [facility] Comment on above: Performed By: #### 7 600, 6517, 88480 #### [facility] [address], [address] [place] [address] Sports Betting Manager: Baldemar Jones MD LIPID PANEL, [address] Cholesterol [Mass/Vol] 106 mg/dL Normal <200 [facility] Comment on above: Order Comment: FASTI NG:YES FASTING: YES Performed By: #### 7 600, 6517, 50270 #### [facility] [address], [address] [place] [address] Sports Betting Manager: Baldemar Jones MD Cholesterol in HDL [Mass/Vol] 44 mg/dL Low > OR = 50 [facility] Comment on above: Order Comment: FASTI NG:YES FASTING: YES Performed By: #### 7 600, 6517, 33951 #### [facility] [place] [address] Sports Betting Manager: Baldemar Jones MD Cholesterol in LDL [Mass/Vol] 36 mg/dL Normal [facility] Comment on above: Order Comment: FASTI NG:YES FASTING: YES Result Comment: Refe rence range: <100 Desirable range <100 mg/dL for primary prevention; <70 mg/dL for patients with CHD or diabetic patients with > or = 2 CHD risk factors. LDL-C is now calculated using the [place]sington calculation, which is a validated novel method providing better accuracy than the Friedewald equation in the estimation of LDL-C. Theo KNAPP et al. KEZIA. 2013;310(19): 1941-7645 (http://education.Fierce & Frugal.Akampus/faq/YPL836) Performed By: #### 7 600, 6517, 83141 #### [facility] [address], [address] [place] [address] Sports Betting Manager: Baldemar Jones MD Cholesterol.total/Cho lesterol in HDL [Mass ratio] 2.4 {ratio} Normal <5.0 [facility] Comment on above: Order Comment: FASTI NG:YES FASTING: YES Performed By: #### 7 600, 6517, 11097 #### [facility] [address], [address] [place] [address] Sports Betting Manager: Baldemar Jones MD NON HDL CHOLESTEROL 62 mg/dL (calc) Normal <130 [facility] Comment on above: Order Comment: FASTI NG:YES FASTING: YES Result Comment: For patients with diabetes plus 1 major ASCVD risk factor, treating to a non-HDL-C goal of <100 mg/dL (LDL-C of <70 mg/dL) is considered a therapeutic option. Performed By: #### 7 600, 6053, 46970 #### [facility] [address], [address] [place] [address] Sports Betting Manager: Baldemar Jones MD Triglyceride [Mass/Vol] 185 mg/dL High <150 [facility] Comment on above: Order Comment: FASTI NG:YES FASTING: YES Performed By: #### 7 600, 6508, 67201 #### [facility] [address], [address] [place] [address] Sports Betting Manager: Baldemar Jones MD Laboratory - Chemistry and C hemistry - challengeOrdered By: Rose Ohara on 08-17-2021 Lipase [Catalytic activity/Vol] 27.0 U/L 22-51 [facility] Random cortisol measurementO rdered By: Rose Ohara on 08-17-2021 Cortisol [Mass/Vol] 10.1 ug/dL [facility] Comment on above: Reference range: AM 6 - 24 ug/dl PM <10 ug/dl Reference range: AM 6 - 24 ug/dl PM <10 ug/dl Cortisol [Mass/Vol] Random cortisol measurement [facility] Comment on above: Reference range: AM 6 - 24 ug/dl PM <10 ug/dl Creatinine (Bld) [Mass/Vol]O rdered By: Bang Nunez on 06-19-2021 Creatinine [Mass/Vol] 0.6 mg/dL 0.6-1.3 [facility] Comment on above: ER/ESD physician is notified/shown all ISTAT results. Critical values may be confirmed by laboratory testing if deemed necessary by ER attending doctor. ER/ESD physician is notified/shown all ISTAT results.Critical values may be confirmed by laboratory testing ifdeemed necessary by ER attending doctor. Creatinine [Mass/Vol] Whole blood creati nine measurement 0.6-1.3 [facility] Comment on above: ER/ESD physician is notified/shown all ISTAT results.Critical values may be confirmed by laboratory testing ifdeemed necessary by ER attending doctor. No Panel InformationOrdered By: Bang Nunez on 06-19-2021 POC Estimated GFR > 60 [facility] Comment on above: GFR estimated refere nce range: According to KDOQI guidelines, <60 ml/min/1.73m2 is sufficient to diagnose a patient with chronic kidney disease. POC Estimated GFR Non- Amer > 60 [facility] Glucose Glucometer (BldC) [M ass/Vol]Ordered By: Bang Nunez on 06-17-2021 Glucose [Mass/Vol] 124 mg/dL [facility] Comment on above: Random Glucose Refer ence Range is dependent on time and content of last meal. Glucose of more than 200 mg/dL in a nonstressed, ambulatory subject supports the diagnosis of Diabetes Mellitus. Glucose [Mass/Vol] Capillary blood gluc ose measurement by glucometer (mass/volume) [facility] Comment on above: Random Glucose Refer ence Range is dependent on time and content of last meal. Glucose of more than 200 mg/dL in a nonstressed, ambulatory subject supports the diagnosis of Diabetes Mellitus. COVID-19 Positive/Negativeon 02-13-2021 SARS-CoV-2 (COVID-19) N gene KIP+probe Ql (Resp) Negative Negative [facility] Comment on above: Reference: Negative Testing for SARS-CoV-2 by RT-PCR This test was developed and its performance characteristics determined by [employer] ([employer]) and validated at the [facility]. This test has not been FDA [...] and its performance characteristics determined by [employer] ([employer]) and validated at the [facility]. This test has not been FDA [...] (COVID-19) RNA KIP+probe Ql (Unsp spec) N/A [facility] No Panel Informationon 12-22 Bedside Glucose Comment Glu2: cleaned meter [facility] Dermatopathologyon 1 Dermatopathology [facility] Dermatopathology Laboratory [address] [place] [id number] DERMATOPATHOLOGY REPORT Name:TOSHA MCNEAL. Rec #. [id number] Location: Date of Procedure: 11/28/2020 Race: Date Received: 12/01/2020 /Sex: 1950 (Age: 69) / F Date Reported: 12/10/2020 Other: Submitting Physician:DIALLO BERGER MD FINAL DIAGNOSIS A. NODE, RIGHT [...] control slides stain appropriately. The prior biopsy [id number] was received and reviewed. The morphology is [...] determined by the Department of Pathology at [facility]. The FDA does not require this [...] A: Non sentinal lymph node. Excision. B: [place] Lymph node count 1005. (Hospital Outpatient) Specimens Submitted As: A: NODE, RIGHT AXILLARY NON-SENTINEL LYMPH NODE B: NODE, RIGHT AXILLARY SENTINEL LYMPH NODE COUNT 1005 Gross Description: A: Received in formalin is a ackerman-yellow irregularly shaped piece of tissue measuring [id number]. The specimen is inked and embedded in toto. B: Received in formalin is one ackerman-yellow irregularly shaped piece of tissue measuring [id number]. The specimen is inked and embedded in [...] [Mass/Vol] 136 mg/dL High 74 - 99 [facility] Comment on above: Performed By: #### G WAYNE #### [facility] [address] [address] [place] [address] Glucose [Mass/Vol] 135 mg/dL High 74 - 99 [facility] Work Phone: Comment on above: Performed By: #### G WAYNE #### [address] [place] [address] History and Physical - Surge ry > 30 dayson 11-28-2020 History and Physical - Surgery > 30 days History of Present Illness: History Present Illness: Reason for surgery: melanoma HPI: 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 Signatures/Attestation: Note Completion: Attending Provider Inpatient Certification StatementObservation patient/other outpatient visits Electronic Signatures: Diallo Berger) (Signed 28-Nov-2020 09:32) Authored: History of Present Illness, Allergies, Home Medication Review, Impression/Procedure, ERAS, Physical Exam, Consent, Note Completion Last Updated: 28-Nov-2020 09:32 by Diallo Berger) Normal [facility] LYMPH GLANDon 11-28-2020 Lymphocytes (Bld) [#/Vol] Patient Name: TOSHA MCNEAL STUDY: LYMPH GLAND; 11/28/2020 10:56 am INDICATION: Malignant melanoma of right upper arm. COMPARISON: None. ACCESSION NUMBER(S): [id number] ORDERING CLINICIAN: DIALLO BERGER TECHNIQUE: DIVISION OF NUCLEAR MEDICINE RADIONUCLIDE [...] lymph node localization to the right axilla. Tmh Teacher images were sent to PACS. I personally reviewed the images/study and I agree with the findings as stated. This study was interpreted at [facility], [place], [place]. Electronically signed by: RICKI SALGADO MD Normal [facility] Patient Profile - Adult v2on 11-28-2020 Patient Profile - Adult v2 This report has been cancelled. Normal [facility] Patient Profile - Preop v2on 11-28-2020 Patient Profile - Preop v2 Profile: Initial Info: How to be AddressedSUZANNE(1) Spoken Language PreferredEnglish (1) Source of Informationpatient Are you currently using the Personal Electronic Health Record or [facility] Stated Reason for Admissioninjection in my lymph nodes Primary Contact Name and Numberharry-spouse Limitations on Visitors/Phone Callsonly spouse may visit Patient Belongingsremains with patient; patient educated regarding responsibility for personal items Patient Belongings Remaining with Patientclothing; vision aids; dental appliance Medications Brought to Hospitalno General Health: Weight in kg94.2 kilogram(s) Weight in aqr146.6 pound(s) Weight Methodactual (measured) Scale Typechair Height [...] Arrangementshouse Lives Withspouse Resource/Environmental Concernsnone Anticipated Transition [employer] Anticipated at Transitionnone Substance: Current or [...] instruction; written material Cultural Considerationsnone Developmental Considerationsnone Restorationist Considerationsnone Other learner availableno [place] RiskPatient location auto qualifies him/her for HIGH RISK. Are there any cultural, spiritual, orthodoxy practices/values/needs that are important for us to [...] Profile - Adult v2 28-Nov-2020 07:19 Normal [facility] Preop Checkliston 11-28-2020 Preop Checklist Preop Checklist: Preop Checklist: Arrival [id number] Arrival Time07:00 Procedure Typeinjection of right arm excision scar Heart Rate65 beats per minute Respiratory Rate16 breath per minute Blood Pressure Smdeyoya532 mm/Hg Blood Pressure Weptxrntp80 mm/Hg NPO [id number] 10:30 ID Band Onyes Allergy Bandno known [...] 28-Nov-2020 07:26 by Evelin Lovett (RN) Normal [facility] CORONAVIRUS 2019, SCREEN ASY MPTOMATICon 11-26-2020 SARS-CoV-2 [...] patient management decisions. Fact sheet for providers: https://www.fda.gov/media/766616/download Fact sheet for patients: https://www.fda.gov/media/796475/download This test has received FDA Emergency Use Authorization (EUA) and has been verified by [facility] ([facility]). This test is only authorized for the duration of time that circumstances exist to justify the authorization of the emergency use of in vitro diagnostic tests for the detection of SARS-CoV-2 virus and/or diagnosis of COVID-19 infection under section 564(b)(1) of the Act, 21 U.S.C. 360bbb-3(b)(1), unless the authorization is terminated or revoked sooner. [facility] is certified under CLIA-88 as qualified to perform high complexity testing. Testing is performed in the [facility] laboratories located at [address] [place] [address]. Performed By: #### C OVSC #### [place] [address] Lab Specimen Source Nasal, Nasopharyngeal Normal [facility] Comment on above: Performed By: #### C OVSC #### [facility] [id number] [place] [address] Coronavirus 2019 RNA by PCR, Screening Asymptomticon 11-26-2020 Coronavirus 2019 RNA by PCR, Screening Asymptomtic NOT DETECTED See Below FN-Kprplwl-Zf [facility] Work Phone: Comment on above: SOURCE: [...] make patient management decisions.Fact sheet for providers: https://www.fda.gov/media/644642/downloadFact sheet for patients: https://www.fda.gov/media/993679/downloadThis test has received FDA Emergency Use Authorization (EUA) and has been verified by [facility] ([facility]). This test is only authorized for the duration of time that circumstances exist to justify the authorization of the emergency use of in vitro diagnostic tests for the detection of SARS-CoV-2 virus and/or diagnosis of COVID-19 infection under section 564(b)(1) of the Act, 21 U.S.C. 360bbb-3(b)(1), unless the authorization is terminated or revoked sooner. [facility] is certified under CLIA-88 as qualified to perform high complexity testing. Testing is performed in the [facility] laboratories located at [address] [place] [address]. Covid 19 Resultson 1 SARS-CoV-2 (COVID-19) RNA [...] You may also be contacted by the [facility] to see if any of [...] or Naproxen (Aleve) can also be used. Ktez-ekg-wuhatlt cough and cold medicines can be used according to the instructions on the package. Some ezcl-hfg-adguess medicines also contain acetaminophen. Make sure you [...] water are not available, use alcohol-based hand dehydrating press operator. Avoid touching your eyes, nose, and [...] [Moles/Vol] 15 mmol/L Normal 10 - 20 [facility] Comment on above: Performed By: #### B MP #### [address] [place] [address] Calcium [Mass/Vol] 9.7 mg/dL Normal 8.6 - 10.3 [facility] Comment on above: Performed By: #### B MP #### [address] [address] Chloride [Moles/Vol] 99 mmol/L Normal 98 - 107 [facility] Comment on above: Performed By: #### B MP #### [address] [address] Creatinine [Mass/Vol] 0.64 mg/dL Normal 0.50 - 1.05 [facility] Comment on above: Performed By: #### B MP #### [address] [address] GFR- AM. >60 Normal >60 [facility] Comment on above: Result Comment: CALC ULATIONS OF ESTIMATED GFR ARE PERFORMED USING THE MDRD STUDY EQUATION FOR THE IDMS-TRACEABLE CREATININE METHODS. CLIN CHEM 2007;53:766-72 Performed By: #### B MP #### [address] [address] GFR-NON AM. >60 Normal >60 [facility] Comment on above: Performed By: #### B MP #### [address] [address] Glucose [Mass/Vol] 105 mg/dL High 74 - 99 [facility] Comment on above: Performed By: #### B MP #### [address] [address] HCO3 (Bld) [Moles/Vol] 30 mmol/L Normal 21 - 32 [facility] Comment on above: Performed By: #### B MP #### [address] [address] Potassium [Moles/Vol] 3.7 mmol/L Normal 3.5 - 5.3 [facility] Comment on above: Performed By: #### B MP #### [address] [address] Sodium [Moles/Vol] 140 mmol/L Normal 136 - 145 [facility] Comment on above: Performed By: #### B MP #### [place] [id number] [facility] [place] [address] Urea nitrogen [Mass/Vol] 18 mg/dL Normal 6 - 23 [facility] Comment on above: Performed By: #### B MP #### [facility] [address] [facility] [place] [address] Metabolic Panelon 11-21-2020 Anion gap [Moles/Vol] 15 mmol/L 10 - 20 [facility] Work Phone: Comment on above: Ordering Provider: Daniela REBOLLEDO [address] Calcium [Mass/Vol] 9.7 mg/dL 8.6 - 10.3 [facility] Work Phone: Comment on above: Ordering Provider: Daniela REBOLLEDO [address] Chloride [Moles/Vol] 99 mmol/L 98 - 107 [facility] Work Phone: Comment on above: Ordering Provider: Daniela REBOLLEDO [address] CO2 [Moles/Vol] 30 mmol/L 21 - 32 [facility]Surger y[facility] Work Phone: Comment on above: Ordering Provider: Daniela REBOLLEDO [address] Creatinine [Mass/Vol] 0.64 mg/dL See Below [facility] Work Phone: Comment on above: Reference Range: 0.5 0 - 1.05 Ordering Provider: Daniela REBOLLEDO [address] Glucose [Mass/Vol] 105 mg/dL above high threshold 74 - 99 LT-Raozboy-Hx [facility] Work Phone: Comment on above: Ordering Provider: Daniela REBOLLEDO [address] Potassium [Moles/Vol] 3.7 mmol/L 3.5 - 5.3 [facility] Work Phone: Comment on above: Ordering Provider: Daniela REBOLLEDO [address] Sodium [Moles/Vol] 140 mmol/L 136 - 145 [facility] cinda-Se [facility] Work Phone: [phone] Comment on above: Ordering Provider: Daniela [place] [address] Urea nitrogen [Mass/Vol] 18 mg/dL 6 - 23 FH-Stmotkt-Us [facility] Work Phone: [phone] Comment on above: Ordering Provider: Daniela [place] [address] Otheron 11-21-2020 >60 >60 YM-Xuaruza-Pj [facility] Work Phone: [phone] Comment on above: CALCULATIONS OF ASHA MATED GFR ARE PERFORMED USING THE MDRD STUDY EQUATION FOR THE IDMS-TRACEABLE CREATININE METHODS. CLIN CHEM 2007;53:766-72 Ordering Provider: Daniela HOW[place] [address] 428 1 XB-Maqlkjg-Dz [facility] Work Phone: [phone] CR-Vsjageu-Bt [facility] Work Phone: [phone] Sinus rhythm with 1s t degree AV block WA-Aaymllv-Ff [facility] Work Phone: [phone] [email or web address] ?RetrieveTestByDateTime?P ewjqfbSS=[id number]&Date=1 03-07-2021&Time=11%3a49%3a 35%3a00&TestType=ECG&Site =12&OutputType=PDF&Ext=PD F KO-Vdnpsom-Ad [facility] Work Phone: [phone] 1 OI-Qkhvltk-Dg [facility] Work Phone: [phone] 1 UZ-Pgrdpih-Na [facility] Work Phone: [phone] FV-Ononqay-Ez [facility] Work Phone: [phone] UA-Unwdlwy-Gp [facility] Work Phone: [phone] RH-Pmlcmrf-Ry [facility] Work Phone: [phone] TH-Kvmkbsb-Qk [facility] Work Phone: [phone] XC-Rwnyrle-Zl [facility] Work Phone: [phone] CA-Homosun-Ox [facility] Work Phone: [phone] BW-Xzoyqel-Os [facility] Work Phone: [phone] BU-Kszhadk-Zy [facility] Work Phone: [phone] HD-Tpwubwy-Wp [facility] Work Phone: Abnormal EL[facility] Work Phone: Initial Visit (General Surge ry)on [...] be. We will plan for [place] [facility] [place] the [place]. Preadmission testing will [...] visit. Right arm melanoma History of Present Wbwndzz29-mjlu-uhc woman referred to me by Dr. Nunez [...] history never smoker, , lives in the [facility] Medications include Ocuvite eyedrops, alendronate, amlodipine, carvedilol, dulaglutide, hydrochlorothiazide, insulin, lisinopril, metformin, potassium chloride, rosuvastatin, aspirin, empagliflozin Physical Exam Telephone visit, and I could not examine her Time Time Stamp_: Time Spent With Patient: 12 minutes of which greater than 50 percent was spent counseling and or coordinating care. Signatures Electronically signed by : Diallo Berger MD; Oct 23 2020 10:45AM EST (Author) Normal [facility] Vital Signs Date Time Vital Sign Value Performing Clinician Facility 07-17-2025 08:54-0400 Body height 152.4 cm [facility] Phone: [facility] 07-17-2025 08:54-0400 Body mass index (BMI) [Ratio] 40.82 kg/m2 [facility] 08:54-0400 Body temperature 98.2 [degF] [facility] Phone: [facility] 07-17-2025 08:54-0400 Body weight 94.8 kg [facility] Work Phone: [facility] 07-17-2025 08:54-0400 Diastolic blood pressure 82 mm[Hg] [facility] Phone: [facility] 07-17-2025 08:54-0400 Heart rate 63 /min [facility] Phone: [facility] 07-17-2025 08:54-0400 Respiratory rate 18 /min [facility] Phone: [facility] 07-17-2025 08:54-0400 SaO2% (BldA) [Mass fraction] 96 % Wild Furlong DO Work Phone: [facility] [employer] [facility] 07-17-2025 08:54-0400 Systolic blood pressure 130 mm[Hg] Wild Furlong DO Work Phone: [facility] 05-14-2025 13:56-0400 Body height 152.4 cm Wild Furlong DO Work Phone: [facility] 05-14-2025 13:56-0400 Body mass index (BMI) [Ratio] 40.74 kg/m2 Wild Furlong DO Work Phone: [facility] 05-14-2025 13:56-0400 Body temperature 99.39 [degF] Wild Furlong DO Work Phone: [facility] 05-14-2025 13:56-0400 Body weight 94.62 kg Wild Furlong DO Work Phone: [facility] [employer] [facility] 05-14-2025 13:56-0400 Diastolic blood pressure 52 mm[Hg] Wild Furlong DO Work Phone: [facility] 05-14-2025 13:56-0400 Heart rate 71 /min Wild Furlong DO Work Phone: [facility] 05-14-2025 13:56-0400 Respiratory rate 18 /min Wild Furlong DO Work Phone: [facility] 05-14-2025 13:56-0400 SaO2% (BldA) [Mass fraction] 96 % Wild Furlong DO Work Phone: [facility] 05-14-2025 13:56-0400 Systolic blood pressure 122 mm[Hg] Wild Furlong DO Work Phone: [facility] 05-07-2025 20:18-0400 Body height 152.4 cm [facility] 2 [facility] 05-07-2025 20:18-0400 Body mass index (BMI) [Ratio] 40.43 kg/m2 Pm 2 [facility] 05-07-2025 20:18-0400 Body weight 93.89 kg Pm 2 [facility] 05-03-2025 09:20-0400 Body height 152.4 cm Sarah Ansari BOX OFFICE CLERK-MASTERCAM PROGRAMMER Work Phone: [facility] 05-03-2025 09:20-0400 Body mass index (BMI) [Ratio] 40.58 kg/m2 Sarah Ansari BOX OFFICE CLERK-MASTERCAM PROGRAMMER Work Phone: [facility] 05-03-2025 09:20-0400 Body temperature 99.5 [degF] Sarah Ansari BOX OFFICE CLERK-MASTERCAM PROGRAMMER Work Phone: [facility] 05-03-2025 09:20-0400 Body weight 94.26 kg Sarah Ansari BOX OFFICE CLERK-MASTERCAM PROGRAMMER Work Phone: [facility] 05-03-2025 09:20-0400 Diastolic blood pressure 58 mm[Hg] Sarah Ansari APRN-MASTERCAM PROGRAMMER Work Phone: [facility] 05-03-2025 09:20-0400 Heart rate 71 /min Sarah Ansari APRN-MASTERCAM PROGRAMMER Work Phone: [facility] 05-03-2025 09:20-0400 Respiratory rate 20 /min Sarah Ansari BOX OFFICE CLERK-MASTERCAM PROGRAMMER Work Phone: [facility] 05-03-2025 09:20-0400 SaO2% (BldA) [Mass fraction] 96 % Sarah Ansari BOX OFFICE CLERK-MASTERCAM PROGRAMMER Work Phone: [facility] 05-03-2025 09:20-0400 Systolic blood pressure 132 mm[Hg] Sarah Ansari BOX OFFICE CLERK-MASTERCAM PROGRAMMER Work Phone: [facility] [facility] 04-24-2025 11:27-0400 Body height 152.4 cm Wild Pendletonlong DO [facility] 04-24-2025 11:27-0400 Body mass index (BMI) [Ratio] 42.18 kg/m2 Wild Pendletonlong DO [facility] 04-24-2025 11:27-0400 Body temperature 98.4 [degF] Wild Pendletonlong DO Work Phone: [facility] [employer] 04-24-2025 11:27-0400 Body weight 97.98 kg Wild Pendletonlong DO [facility] 04-24-2025 11:27-0400 Diastolic blood pressure 72 mm[Hg] Wild Pendletonlong DO [facility] 04-24-2025 11:27-0400 Heart rate 67 /min Wild PendletonWhiteHat Securityng DO Work Phone: [facility] [employer] 04-24-2025 11:27-0400 Respiratory rate 18 /min Wild PendletonWhiteHat Securityng DO [facility] 04-24-2025 11:27-0400 SaO2% (BldA) [Mass fraction] 94 % Wild PendletonWhiteHat Securityng DO [facility] Phone[facility] 04-24-2025 11:27-0400 Systolic blood pressure 156 mm[Hg] Wild Pendletonlong DO Work Phone: [facility] [employer] 04-13-2025 11:19-0400 Body temperature 98.2 [degF] Rajni Cline MD Work Phone: [facility] [employer] 04-13-2025 09:09-0400 Heart rate 63 /min Rajni Cline MD Work Phone: [facility] [employer] 04-13-2025 09:09-0400 Respiratory rate 16 /min Rajni Cline MD Work Phone: [facility] [employer] 04-13-2025 09:09-0400 SaO2% (BldA) [Mass fraction] 96 % Rajni Cline MD Work Phone[facility] 04-13-2025 08:15-0400 Diastolic blood pressure 44 mm[Hg] Rajni Cline MD Work Phone[facility] 04-13-2025 08:15-0400 Systolic blood pressure 131 mm[Hg] Rajni Cline MD Work Phone: [facility] 04-10-2025 12:25-0400 Body height 152.4 cm Rajni Cline MD Work Phone: [facility] 04-10-2025 12:25-0400 Body mass index (BMI) [Ratio] 41.01 kg/m2 Rajni Cline MD Work Phone[facility] 04-10-2025 12:25-0400 Body weight 95.25 kg Rajni Cline MD Work Phone[facility] 03-21-2025 11:44-0400 Body temperature 98.6 [degF] Wild Furlong DO Work Phone: [facility] [employer] [facility] 03-21-2025 11:44-0400 Diastolic blood pressure 64 mm[Hg] Wild Furlong DO Work Phone: [facility] [employer] [facility] 03-21-2025 11:44-0400 Heart rate 72 /min Wild Furlong DO Work Phone: [facility] [employer] [facility] 03-21-2025 11:44-0400 Systolic blood pressure 116 mm[Hg] Wild Furlong DO Work Phone: [facility] [employer] [facility] 03-10-2025 11:25-0400 Body temperature 98.8 [degF] Carlos Garcia MD Work Phone: [facility] [employer] 03-10-2025 11:25-0400 Diastolic blood pressure 57 mm[Hg] Carlos Garcia MD Work Phone: [facility] 03-10-2025 11:25-0400 Heart rate 80 /min Carlos Garcia MD Work Phone: [facility] 03-10-2025 11:25-0400 Respiratory rate 27 /min Carlos Garcia MD Work Phone: [facility] [employer] 03-10-2025 11:25-0400 SaO2% (BldA) [Mass fraction] 98 % Carlos Garcia MD Work Phone: [facility] 03-10-2025 11:25-0400 Systolic blood pressure 125 mm[Hg] Carlos Garcia MD Work Phone: [facility] 03-08-2025 05:01-0400 Body mass index (BMI) [Ratio] 44.35 kg/m2 Carlos Garcia MD Work Phone: [facility] 03-08-2025 05:01-0400 Body weight 103 kg Carlos Garcia MD Work Phone[facility] 03-03-2025 11:30-0400 Body height 152.4 cm Carlos Garcia MD Work [facility] 12-26-2024 12:59-0500 Body temperature 97.5 [degF] Wild Furlong DO Work Phone: [facility] 12-26-2024 12:59-0500 Diastolic blood pressure 64 mm[Hg] Wild Furlong DO Work Phone: [facility] 12-26-2024 12:59-0500 Heart rate 82 /min Wild Furlong DO Work Phone: [facility] 12-26-2024 12:59-0500 Respiratory rate 16 /min Wild Furlong DO Work Phone: [facility] 12-26-2024 12:59-0500 SaO2% (BldA) [Mass fraction] 98 % Wild Centeno DO Work Phone: [facility] 12-26-2024 12:59-0500 Systolic blood pressure 162 mm[Hg] Wild Centeno DO Work Phone: [facility] 08-16-2024 15:18-0400 Body height 152.4 cm Giuseppe Jama APRN-AUTUMN Work Phone: [facility] 08-16-2024 15:18-0400 Body mass index (BMI) [Ratio] 43.79 kg/m2 Giuseppe Jama APRN-AUTUMN Work Phone: [facility] [employer] [facility] 08-16-2024 15:18-0400 Body temperature 97.2 [degF] Giuseppe Jama APRN-AUTUMN Work Phone: [facility] [employer] [facility] 08-16-2024 15:18-0400 Body weight 101.7 kg Giuseppe Jama APRN-AUTUMN Work Phone: [facility] [employer] [facility] 08-16-2024 15:18-0400 Diastolic blood pressure 64 mm[Hg] Giuseppe Jama APRN-AUTUMN Work Phone: [facility] [employer] [facility] 08-16-2024 15:18-0400 Heart rate 62 /min Giuseppe Jama APRN-AUTUMN Work Phone: [facility] [employer] [facility] 08-16-2024 15:18-0400 Respiratory rate 18 /min Giuseppe Jama APRN-MASTERCAM PROGRAMMER Work Phone: [facility] [employer] [facility] 08-16-2024 15:18-0400 SaO2% (BldA) [Mass fraction] 95 % Giuseppe Jama APRN-MASTERCAM PROGRAMMER Work Phone: [facility] [employer] [facility] 08-16-2024 15:18-0400 Systolic blood pressure 140 mm[Hg] Giuseppe Jama BOX OFFICE CLERK-MASTERCAM PROGRAMMER Work Phone: [facility] 07-16-2024 08:24-0400 Body height 152.4 cm Wild Furlong DO Work Phone: [facility] [employer] [facility] 07-16-2024 08:24-0400 Body mass index (BMI) [Ratio] 42.89 kg/m2 Wild Furlong DO Work Phone: [facility] [employer] [facility] 07-16-2024 08:24-0400 Body temperature 98.49 [degF] Wild Furlong DO Work Phone: [facility] 07-16-2024 08:24-0400 Body weight 99.61 kg Wild Furlong DO Work Phone: [facility] [employer] [facility] 07-16-2024 08:24-0400 Diastolic blood pressure 60 mm[Hg] Wild Furlong DO Work Phone: [facility] [employer] [facility] 07-16-2024 08:24-0400 Heart rate 57 /min Wild Furlong DO Work Phone: [facility] [employer] [facility] 07-16-2024 08:24-0400 Respiratory rate 18 /min Wild Furlong DO Work Phone: [facility] 07-16-2024 08:24-0400 SaO2% (BldA) [Mass fraction] 98 % Wild Furlong DO Work Phone: [facility] [employer] [facility] 07-16-2024 08:24-0400 Systolic blood pressure 120 mm[Hg] Wild Furlong DO Work Phone: [facility] [employer] [facility] 03-20-2024 11:03-0400 Body height 152.4 cm Wild Furlong DO Work Phone: [facility] 03-20-2024 11:03-0400 Body mass index (BMI) [Ratio] 42.11 kg/m2 Wild Furlong DO Work Phone: [facility] [employer] [facility] 03-20-2024 11:03-0400 Body weight 97.8 kg Wild Furlong DO Work Phone: [facility] [employer] [facility] 03-20-2024 11:03-0400 Diastolic blood pressure 82 mm[Hg] Wild Furlong DO Work Phone: [facility] 03-20-2024 11:03-0400 Systolic blood pressure 142 mm[Hg] Wild Furlong DO Work Phone: [facility] 01-11-2024 10:39-0500 Body height 152.4 cm Wild Furlong DO Work Phone: [facility] 01-11-2024 10:39-0500 Body mass index (BMI) [Ratio] 41.81 kg/m2 Wild Furlong DO Work Phone: [facility] 01-11-2024 10:39-0500 Body temperature 98.2 [degF] Wild Furlong DO Work Phone: [facility] 01-11-2024 10:39-0500 Body weight 97.11 kg Wild Furlong DO Work Phone: [facility] [employer] [facility] 01-11-2024 10:39-0500 Diastolic blood pressure 78 mm[Hg] Wild Furlong DO Work Phone: [facility] [employer] [facility] 01-11-2024 10:39-0500 Heart rate 65 /min Wild Furlong DO Work Phone: [facility] 01-11-2024 10:39-0500 SaO2% (BldA) [Mass fraction] 92 % Wild Furlong DO Work Phone: [facility] 01-11-2024 10:39-0500 Systolic blood pressure 130 mm[Hg] Wild Furlong DO Work Phone: [facility] 12-23-2023 09:37-0500 Body height 152.4 cm Wild Furlong DO Work Phone: [facility] 12-23-2023 09:37-0500 Body mass index (BMI) [Ratio] 41.46 kg/m2 Wild Furlong DO Work Phone: [facility] [employer] [facility] 12-23-2023 09:37-0500 Body temperature 98.49 [degF] Wild Furlong DO Work Phone: [facility] 12-23-2023 09:37-0500 Body weight 96.3 kg Wild Furlong DO Work Phone: [facility] 12-23-2023 09:37-0500 Diastolic blood pressure 50 mm[Hg] Wild Furlong DO Work Phone: [facility] 12-23-2023 09:37-0500 Heart rate 65 /min Wild Furlong DO Work Phone: [facility] 12-23-2023 09:37-0500 SaO2% (BldA) [Mass fraction] 95 % Wild Furlong DO Work Phone: [facility] 12-23-2023 09:37-0500 Systolic blood pressure 140 mm[Hg] Wild Furlong DO Work Phone: [facility] 12-15-2023 10:17-0500 Body height 152.4 cm DO Wild Furlong Work Phone: [facility] 12-15-2023 10:17-0500 Body mass index (BMI) [Ratio] 41 kg/m2 DO Wild Furlong Work Phone: [facility] 12-15-2023 10:17-0500 Body temperature 97.3 [degF] DO Wild Furlong Work Phone: [facility] 12-15-2023 10:17-0500 Body weight 95.25 kg DO Wild Furlong Work Phone: [facility] 12-15-2023 10:17-0500 Diastolic blood pressure 73 mm[Hg] DO Wild Furlong Work Phone: [facility] 12-15-2023 10:17-0500 Heart rate 55 /min DO Wild Furlong Work Phone: [facility] 12-15-2023 10:17-0500 Respiratory rate 16 /min DO Wild Furlong Work Phone: [facility] 12-15-2023 10:17-0500 Systolic blood pressure 150 mm[Hg] DO Wild Furlong Work Phone: [facility] 08-11-2023 10:23-0400 Body temperature 97.2 [degF] DO Wild Furlong Work Phone: [facility] 08-11-2023 10:23-0400 Body weight 99.79 kg DO Wild Furlong Work Phone: [facility] 08-11-2023 10:23-0400 Diastolic blood pressure 77 mm[Hg] DO Wild Furlong Work Phone: [facility] 08-11-2023 10:23-0400 Heart rate 56 /min DO Wild Furlong Work Phone: [facility] 08-11-2023 10:23-0400 Respiratory rate 16 /min DO Wild Furlong Work Phone: [facility] 08-11-2023 10:23-0400 SaO2% (BldA) [Mass fraction] 95 % DO Wild Furlong Work Phone: [facility] 08-11-2023 10:23-0400 Systolic blood pressure 155 mm[Hg] DO Wild Furlong Work Phone: [facility] 04-13-2023 09:19-0400 Body temperature 97.9 [degF] DO Wild Furlong Work Phone: [facility] 04-13-2023 09:19-0400 Body weight 99.33 kg DO Wild Furlong Work Phone: [facility] 04-13-2023 09:19-0400 Diastolic blood pressure 67 mm[Hg] DO Wild Furlong Work Phone: [facility] 04-13-2023 09:19-0400 Heart rate 64 /min DO Wild Furlong Work Phone: [facility] 04-13-2023 09:19-0400 Respiratory rate 16 /min DO Wild Furlong Work Phone: [facility] 04-13-2023 09:19-0400 SaO2% (BldA) [Mass fraction] 97 % DO Wild Furlong Work Phone: [facility] 04-13-2023 09:19-0400 Systolic blood pressure 148 mm[Hg] DO Wild Furlong Work Phone: [facility] 09-23-2022 08:25-0500 Body temperature 97.8 [degF] DO Wild Furlong Work Phone: [facility] 09-23-2022 08:25-0500 Body weight 99.9 kg DO Wild Furlong Work Phone: [facility] 09-23-2022 08:25-0500 Diastolic blood pressure 66 mm[Hg] DO Wild Furlong Work Phone: [facility] 09-23-2022 08:25-0500 Heart rate 68 /min DO Wild Furlong Work Phone: [facility] 09-23-2022 08:25-0500 Respiratory rate 16 /min DO Wild Furlong Work Phone: [facility] 09-23-2022 08:25-0500 SaO2% (BldA) [Mass fraction] 94 % DO Wild Furlong Work Phone: [facility] 09-23-2022 08:25-0500 Systolic blood pressure 153 mm[Hg] DO Wild Furlong Work Phone: [facility] 07-01-2022 10:32-0400 Body temperature 97.8 [degF] DO Wild Furlong Work Phone: [facility] 07-01-2022 10:32-0400 Body weight 99.33 kg DO Wild Furlong Work Phone: [facility] 07-01-2022 10:32-0400 Diastolic blood pressure 75 mm[Hg] DO Wild Furlong Work Phone: [facility] 07-01-2022 10:32-0400 Heart rate 55 /min DO Iwld Furlong Work Phone: [facility] 07-01-2022 10:32-0400 Respiratory rate 16 /min DO Wild Furlong Work Phone: [facility] 07-01-2022 10:32-0400 SaO2% (BldA) [Mass fraction] 98 % DO Wild Furlong Work Phone: [facility] 07-01-2022 10:32-0400 Systolic blood pressure 154 mm[Hg] DO Wild Furlong Work Phone: [facility] 03-31-2022 13:24-0400 Body temperature 97 [degF] DO Wild Furlong Work Phone: [facility] 03-31-2022 13:24-0400 Body weight 98.42 kg DO Wild Furlong Work Phone: [facility] 03-31-2022 13:24-0400 Diastolic blood pressure 74 mm[Hg] DO Wild Furlong Work Phone: [facility] 03-31-2022 13:24-0400 Heart rate 62 /min DO Wild Furlong Work Phone: [facility] 03-31-2022 13:24-0400 Respiratory rate 16 /min DO Wild Centeno Work Phone: [facility] 03-31-2022 13:24-0400 SaO2% (BldA) [Mass fraction] 96 % DO Wild Centeno Work Phone: [facility] 03-31-2022 13:24-0400 Systolic blood pressure 150 mm[Hg] DO Wild Centeno Work Phone: [facility] 10-01-2020 10:47-0500 Body height 157.99 cm DO Wild Centeno Work Phone: [facility] 1950 00:00-0500 >na< Obdulio Flowers [facility] of [facility] Encounters Encounter Date Encounter Type Care Provider Facility Start: 07-30-2025 ambulatory Shavon Mustafa Facility:C [id number] Start: 07-19-2025 End: 07-19-2025 Orders Only Wild Centeno DO Work Phone: [facility] Comment on above: Degeneration of inte rvertebral disc of lumbar region with discogenic back pain (Primary Dx) Start: 07-17-2025 End: 07-17-2025 Office outpatient visit 25 minutes Wild Centeno DO Work Phone: [facility] Comment on above: Hypertension associa jin with stage 3a chronic kidney 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 ([facility]) (Primary Dx); Degeneration of intervertebral disc of lumbar region with discogenic back pain; Morbid obesity ([facility]) Start: 07-17-2025 End: 07-17-2025 ambulatory WILDLEWIS CENTENO [facility] Start: 07-16-2025 End: 07-16-2025 Patient encounter procedure Shavon Fragoso MD -Pre-Surgical Testing Work Phone: Start: 07-16-2025 End: 07-16-2025 ambulatory Wild Furlong DO Work Phone: [facility] Work Phone: Start: 07-04-2025 End: 07-04-2025 Orders Only Wild Pendletonlong DO Work Phone: [facility] Start: 06-27-2025 End: 06-27-2025 ambulatory [facility] Start: 06-19-2025 End: 06-19-2025 ambulatory Shavon Mustafa Facility:[facility] Start: 06-19-2025 End: 06-19-2025 Patient encounter procedure Shavon Mustafa [facility] Start: 06-18-2025 End: 06-18-2025 Telephone encounter Orders Support User Transcribe [facility] - Sleep Disorders Comment on above: Sleep Lab (Pap Order ) Start: 06-17-2025 End: 06-17-2025 ambulatory [facility] Start: 06-17-2025 End: 06-17-2025 Office outpatient new 45 minutes Marie Gray MD Work Phone: [facility] Comment on above: RONEN (obstructive sle ep apnea) (Primary Dx); Class 3 severe obesity due to excess calories with serious comorbidity and body mass index (BMI) of 40.0 to 44.9 in adult ([facility]); Essential hypertension, benign; Nocturia Start: 06-11-2025 End: 06-11-2025 Patient encounter procedure Shavon Fragoso MD -Ultrasound [facility] [place] Work Phone: Start: 06-11-2025 End: 06-11-2025 ambulatory Wild Furlong DO Work Phone: [facility] Work Phone: Start: 05-20-2025 End: 05-20-2025 Telephone encounter Dee Dee Horton MD Work Phone: [facility] Start: 05-15-2025 End: 05-15-2025 Refill Wild Burger Chase DO Work Phone: [facility] Start: 05-14-2025 End: 05-14-2025 Office outpatient visit 25 minutes Wild Centeno DO Work Phone: [facility] Comment on above: History of cholecyst ectomy (Primary Dx); Diarrhea, unspecified type; Morbid obesity ([facility]); Lumbar spondylosis Start: 05-14-2025 End: 05-14-2025 ambulatory [facility] Start: 05-07-2025 End: 05-07-2025 Clinical Support Wild Jailene Chase DO Work Phone: [facility] - Sleep Disorders Comment on above: Hypersomnia; Excessive daytime sleepiness Start: 05-03-2025 End: 05-03-2025 Telephone encounter Genny Valdovinos [facility] Milvia lorenzo Comment on above: Results Start: 05-03-2025 End: 05-03-2025 Office outpatient visit 25 minutes [facility] [employer]INCE-MASTER[employer] PROGRAMMER Work Phone: [facility] Comment on above: S/P cholecystectomy (Primary Dx); Type 2 diabetes mellitus with stage 2 chronic kidney disease, with long-term current use of insulin ([facility]); Localized swelling of left foot; Irregular heart beat; Other post infection and related fatigue syndromes; Abnormal CBC; Morbid obesity ([facility]); Excessive daytime sleepiness Start: 05-03-2025 End: 05-03-2025 ambulatory [facility] Start: 04-30-2025 End: 04-30-2025 Telephone encounter Wild Centeno DO Work Phone: [facility] - Sleep Disorders Comment on above: Sleep Lab ([facility]) Start: 04-29-2025 End: 04-29-2025 Orders Only Wild Centeno DO Work Phone: [facility] Medicine Comment on above: Hypersomnia (Primary Dx); Excessive daytime sleepiness Start: 04-25-2025 End: 04-25-2025 Telephone encounter Wild Centeno DO Work Phone: [facility] - Sleep Disorders Comment on above: Sleep Lab ([facility]) Start: 04-24-2025 End: 04-24-2025 Transitional care manage srvc 14 day discharge Wild Centeno DO Work Phone: [facility] Comment on above: S/P laparoscopic cho lecystectomy (Primary Dx); Morbid obesity ([facility]); Hypersomnia; Type 2 diabetes mellitus with stage 2 chronic kidney disease, with long-term current use of insulin ([facility]); Physical deconditioning; Screening for depression Start: 04-24-2025 End: 04-24-2025 ambulatory [facility] Start: 04-15-2025 End: 04-30-2025 Telephone encounter Chelsi Dee RN Work Phone: [facility] Medicine Comment on above: Transition Of Care Start: 04-10-2025 End: 04-13-2025 Evaluation and management of inpatient Rajni Cline MD Work Phone: [address] Onc/Med Surg Comment on above: Acute cholecystitis due to biliary calculus (Primary Dx); Cholecystitis Start: 04-07-2025 End: 04-07-2025 Refill Wild Centeno [facility] Start: 03-27-2025 End: 03-27-2025 Refill [facility] Poole C[facility] Start: 03-26-2025 End: 03-28-2025 ambulatory [facility] Start: 03-21-2025 End: 03-21-2025 Transitional care manage srvc 14 day discharge Wild G Furlong DO Work Phone: [facility] Comment on above: Acute cholecystitis (Primary Dx); Essential hypertension; Hypokalemia; Type 2 diabetes mellitus with stage 3a chronic kidney disease, with long-term current use of insulin ([facility]); Morbid obesity ([facility]); 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 ([facility]) Start: 03-21-2025 End: 03-21-2025 [facility] Start: 03-13-2025 End: 03-18-2025 Telephone encounter Tressa Campbell CMA [facility] Start: 03-11-2025 End: 03-11-2025 Telephone encounter Chelsi Dee RN Work Phone: [facility] Medicine Comment on above: Transition Of Care Start: 03-03-2025 End: 03-10-2025 Evaluation and management of inpatient Carlos Garcia MD Work Phone: [facility] Stepdown Start: 03-03-2025 End: 03-03-2025 ambulatory Wild Centeno DO Work Phone: [facility] Work Phone: Start: 03-03-2025 End: 03-03-2025 Departed Referred Wild Centeno DO Work Phone: [facility] Start: 02-19-2025 End: 02-19-2025 ambulatory [facility] Start: 02-12-2025 End: 02-12-2025 Refill Wild Centeno DO Work Phone: [facility] Start: 02-08-2025 End: 02-08-2025 Refill Wild Centeno DO Work Phone: [facility] Start: 01-17-2025 End: 01-17-2025 [facility] Start: 01-16-2025 End: 01-16-2025 ambulatory Shavon Mustafa Facility:[facility] Start: 01-07-2025 ambulatory Shavon Mustafa Facility:[facility] Start: 01-03-2025 End: 01-03-2025 ambulatory [facility] Start: 12-31-2024 ambulatory Shavon Lugordon Facility:[facility] Start: 12-26-2024 Registered Recurring Wild daigle DO Work Phone: [facility] Work Phone: Start: 12-26-2024 End: 12-26-2024 ambulatory Wild Pendletoncarito DO Work Phone: [facility] Work Phone: Start: 12-26-2024 End: 12-26-2024 Patient encounter procedure Wild Heldercarito DO Work Phone: [facility] Work Phone: Start: 12-11-2024 End: 12-11-2024 External Result Encounter Rose Ohara MD Work Phone: [facility] External Department Unsolicited Start: 12-11-2024 End: 12-11-2024 External Result Encounter Rose Ohara MD Work Phone: [facility] External Department Unsolicited Start: 08-20-2024 End: 08-20-2024 Refill Wild Pendletoncarito DO Work Phone: [facility] Comment on above: Hypertension associa jin with stage 3a chronic kidney 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 ([facility]) Start: 08-16-2024 End: 08-16-2024 Office outpatient visit 15 minutes Giuseppe Jama APRN-MASTERCAM PROGRAMMER Work Phone: [facility] Comment on above: Lumbar paraspinal mu scle spasm (Primary Dx); Lumbar back pain; Need for influenza vaccination Start: 08-16-2024 End: 08-16-2024 ambulatory GIUSEPPE J [facility] Start: 07-18-2024 End: 07-18-2024 Orders Only Wild Centeno DO Work Phone: [facility] Start: 07-16-2024 End: 07-16-2024 [facility] Start: 07-16-2024 End: 07-16-2024 Office outpatient visit 25 minutes Wild Centeno DO Work Phone: [facility] Comment on above: Hypertension associa jin with stage 3a chronic kidney 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 ([facility]) (Primary Dx); Type 2 diabetes mellitus with stage 3a chronic kidney disease, with long-term current use of insulin ([facility]); Enlarged pituitary gland ([facility]); Morbid obesity ([facility]) Start: 06-14-2024 End: 06-14-2024 Orders Only Wild Centeno DO Work Phone: [facility] Start: 06-13-2024 End: 06-14-2024 Telephone encounter Amanda Poole CMA [facility] Start: 06-07-2024 End: 06-07-2024 ambulatory WILD CENTENO [facility] Start: 05-22-2024 End: 05-22-2024 Orders Only Wild Centeno DO Work Phone: [facility] Comment on above: Encounter for screen ing mammogram for malignant neoplasm of breast (Primary Dx) Start: 05-17-2024 End: 05-17-2024 Refill Wild Centeno DO Work Phone: [facility] Comment on above: Hypertension associa jin with stage 3a chronic kidney 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 ([facility]) Start: 05-14-2024 End: 05-14-2024 Refill Wild Centeno DO Work Phone: [facility] Start: 03-20-2024 End: 03-20-2024 Patient encounter procedure Wild Centeno DO Work Phone: [facility] Comment on above: Medicare annual well ness visit, subsequent (Primary Dx); Screening for depression Start: 02-14-2024 End: 02-14-2024 Refill Wild Centeno DO Work Phone: [facility] Start: 02-02-2024 Refill Irene Schrader BOX OFFICE CLERK-SITE AUDITOR Work Phone: [facility] Start: 01-15-2024 Orders Only Wild recinos DO Work Phone: [facility] Start: 01-11-2024 End: 01-11-2024 ambulatory WILD CENTENO [facility] Start: 01-11-2024 End: 01-11-2024 Office outpatient visit 25 minutes Wild Centeno DO Work Phone: [facility] Comment on above: Type 2 diabetes deepak itus with stage 3a chronic kidney disease, with long-term current use of insulin ([facility]) (Primary Dx); Gout, unspecified cause, unspecified chronicity, unspecified site; Mixed hyperlipidemia; Morbid obesity ([facility]); 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 ([facility]) Start: 12-28-2023 End: 12-29-2023 ambulatory ZABRINA CORTEZ Not Available Start: 12-26-2023 End: 12-26-2023 ambulatory ZABRINA BYERSY Not Available Start: 12-26-2023 Refill Wild recinos DO Work Phone: [facility] Start: 12-23-2023 End: 12-23-2023 Office outpatient visit 15 minutes Wild Centeno DO Work Phone: [facility] Comment on above: Acute gout due to re nal impairment involving toe of right foot (Primary Dx); 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 ([facility]) Start: 12-21-2023 End: 12-22-2023 ambulatory ZABRINA CORTEZ Not Available Start: 12-21-2023 End: 12-21-2023 Admission to same day surgery center Zabrina Cortez BUTTONHOLE FACER [facility] Comment on above: Aftercare following left knee joint replacement surgery (Primary Dx); Acute pain of left knee; Stiffness of left knee; Primary osteoarthritis of left knee Start: 12-21-2023 End: 12-21-2023 ambulatory Zabrina Cortez BUTTONHOLE FACER [facility] Start: 12-21-2023 Bamboo flowsheet Zabrina Cortez BUTTONHOLE FACER [facility] Start: 12-21-2023 Bamboo flowsheet Zabrina Cortez BUTTONHOLE FACER [facility] Start: 12-19-2023 End: 12-19-2023 Admission to same day surgery center Shan Tyree BUTTONHOLE FACER [facility] Comment on above: Aftercare following left knee joint replacement surgery (Primary Dx); Acute pain of left knee; Stiffness of left knee; Primary osteoarthritis of left knee Start: 12-19-2023 End: 12-20-2023 ambulatory Shan Tyree BUTTONHOLE FACER [facility] Start: 12-19-2023 Bamboo flowsheet Shan Tyree PT A [facility] Start: 12-19-2023 Bamboo flowsheet Shan Tyree PT A [facility] Start: 12-15-2023 End: 12-15-2023 ambulatory DO Wild Furlong Work Phone: [facility] Work Phone: Start: 12-15-2023 End: 12-15-2023 Patient encounter procedure DO Wild Furlong Work Phone: [facility] Work Phone: Start: 12-15-2023 Registered Recurring DO Wild Furlong Work Phone: [facility] Work Phone: Start: 12-14-2023 End: 12-14-2023 ambulatory ZABRINA KELBLEY Not Available Start: 12-14-2023 End: 12-14-2023 Admission to same day surgery center Zabrina Cortez BUTTONHOLE FACER [facility] Comment on above: Aftercare following left knee joint replacement surgery (Primary Dx); Acute pain of left knee; Stiffness of left knee; Primary osteoarthritis of left knee Start: 12-14-2023 End: 12-14-2023 ambulatory Zabrina Cortez BUTTONHOLE FACER [facility] Start: 12-14-2023 Bamboo flowsheet Zabrina Cortez BUTTONHOLE FACER [facility] Start: 12-14-2023 Bamboo flowsheet Zabrina Cortez BUTTONHOLE FACER [facility] Start: 12-13-2023 Registered Recurring DO Wild Furlong Work Phone: [facility] Work Phone: Start: 12-13-2023 End: 12-13-2023 ambulatory DO Wild Furlong Work Phone: [facility] Work Phone: Start: 12-13-2023 End: 12-13-2023 Patient encounter procedure DO Wild Furlong Work Phone: [facility] [place] Work Phone: Start: 2023 End: 2023 ambulatory ZABRINACLIFTON MURCIABLEY Not Available Start: 12-07-2023 End: 12-08-2023 ambulatory ZABRINA KELBLEY Not Available Start: 12-05-2023 End: 12-05-2023 ambulatory ZABRINA KELBLEY Not Available Start: 12-02-2023 End: 12-02-2023 ambulatory ZABRINA KELBLEY Not Available Start: 11-30-2023 End: 11-30-2023 ambulatory ZABRINA KELBLEY Not Available Start: 11-25-2023 End: 11-25-2023 ambulatory ZABRINA KELBLEY Not Available Start: 11-23-2023 End: 11-23-2023 ambulatory ZABRINA KELBLEY Not Available Start: 11-21-2023 End: 11-21-2023 ambulatory ZABRINA KELBLEY Not Available Start: 11-09-2023 End: 11-09-2023 ambulatory Aly Higgins MD Facility:[facility] Start: 11-08-2023 End: 11-08-2023 ambulatory ZABRINA BYERSY Not Available Start: 11-04-2023 End: 11-04-2023 ambulatory ZABRINA BYERSY Not Available Start: 11-02-2023 End: 11-02-2023 ambulatory ZABRINA BYERSY Not Available Start: 11-01-2023 End: 11-02-2023 ambulatory ZABRINA BYERSY Not Available Start: 10-28-2023 End: 10-28-2023 ambulatory VIRGINIA MITCHELL Not Available Start: 10-26-2023 End: 10-26-2023 ambulatory VIRGINIA MITCHELL Not Available Start: 10-24-2023 End: 10-24-2023 ambulatory DB YU Not Available Start: 10-03-2023 End: 10-04-2023 ambulatory ALY [facility]UMARMARIEL [facility] Start: 09-26-2023 End: 09-26-2023 ambulatory DB YU Not Available Start: 09-08-2023 End: 09-13-2023 ambulatory ALY [facility] Start: 08-11-2023 End: 08-11-2023 ambulatory DO Wild Furlong Work Phone: [facility] Work Phone: Start: 08-11-2023 End: 08-11-2023 Registered Recurring DO Wild Furlong Work Phone: [facility] Work Phone: Start: 04-13-2023 End: 04-13-2023 ambulatory DO Wild Furlong Work Phone: [facility] Work Phone: Start: 04-13-2023 End: 04-13-2023 Registered Recurring DO Wild Furlong Work Phone: [facility] Work Phone: Start: 03-03-2023 End: 03-04-2023 ambulatory WILD G FURLONG Facility:[facility] Start: 09-23-2022 End: 09-23-2022 ambulatory DO Wild Furlong Work Phone: [facility] Work Phone: Start: 09-23-2022 End: 09-23-2022 Registered Recurring DO [facility] Furlong [facility] Start: 08-26-2022 End: 08-27-2022 ambulatory WILD G FURLONG Facility:[facility] Start: 08-11-2022 End: 08-12-2022 ambulatory WILD G FURLONG Facility:[facility] Start: 07-01-2022 End: 07-01-2022 Registered Recurring DO Iwld Furlong [facility] Start: 04-29-2022 End: 04-30-2022 ambulatory ROBERT ROLONANI Facility:[facility] Start: 03-31-2022 End: 03-31-2022 Registered Recurring DO Wildlewis Pendletonlong Work Phone[facility] Start: 12-16-2020 Obdulio Flowers Dep t. of Dermatology Procedures Date Procedure Procedure Detail Performing Clinician Start: 07-17-2025 Hemoglobin glycosylated a1c Wild arzate DO Work Phone: Start: 07-17-2025 Adult depression screening assessment Wild Pendletonlong DO Work Phone: Start: 06-11-2025 Ultrasonography of bilateral kidneys Wild Catesng DO Work Phone: Start: 05-14-2025 Adult depression screening assessment Wildlewis Pendletonlong DO Work Phone: Start: 05-03-2025 Ecg routine ecg w/least 12 lds w/i&r Sarha Ansari BOX OFFICE CLERK-MASTERCAM PROGRAMMER Work Phone: Start: 05-03-2025 Follow-up visit Follow-up SARAH ANSARI Start: 05-03-2025 Adult depression screening assessment aSrah Ansari BOX OFFICE CLERK-MASTERCAM PROGRAMMER Work Phone: Start: 04-24-2025 Adult depression screening assessment Wild Centeno DO Work Phone: Start: 04-13-2025 Glucose blood reagent strip Rajni alva MD Work Phone: Start: 04-13-2025 End: 04-13-2025 Basic metabolic panel calcium total Sarah Bhatt MD Work Phone: Start: 04-13-2025 HOME O2 EVAL (DESATURATION SCREEN) Melida Merlos DO Work Phone: Start: 04-12-2025 Glucose blood reagent strip Rajni alva MD Work Phone: Start: 04-12-2025 Glucose blood reagent strip Rajni alva MD Work Phone: Start: 04-12-2025 BASIC METABOLIC PANEL W/ REFLEX TO MG FOR LOW K Radha Morris BOX OFFICE CLERK - MASTERCAM PROGRAMMER Work Phone: Start: 04-12-2025 Glucose blood reagent strip Rajni alva MD Work Phone: Start: 04-12-2025 Radiologic exam chest single view Melida Alvarenga DO Work Phone: Start: 04-12-2025 HOME O2 EVAL (DESATURATION SCREEN) Radha Morris BOX OFFICE CLERK - MASTERCAM PROGRAMMER Work Phone: Start: 04-12-2025 Basic metabolic panel calcium total Sarah Bhatt MD Work Phone: Start: 04-11-2025 Glucose blood reagent strip Rajni alva MD Work Phone: Start: 04-11-2025 Basic metabolic panel calcium total Sarah Bhatt MD Work Phone: Start: 04-11-2025 Hepatic function panel Sarah Bhatt MD Work Phone: Start: 04-10-2025 PREVIOUS SPECIMEN Rajni Cline MD Work Phone: Start: 04-10-2025 End: 04-10-2025 Basic metabolic panel calcium total Sarah Bhatt MD Work Phone: Start: 04-10-2025 End: 04-10-2025 Laparoscopy surg cholecystectomy Rajni Cline MD Work Phone: Start: 04-10-2025 Gluc bld gluc mntr dev cleared fda spec home use Rajni Cline MD Work Phone: Start: 04-10-2025 Potassium [Moles/volume] in Serum or Plasma Rajni Cline MD Work Phone: Start: 04-10-2025 SURGICAL PATHOLOGY REPORT Rajni arenas MD Work Phone: Start: 03-21-2025 Comprehensive metabolic panel Wild Centeno DO Work Phone: Start: 03-21-2025 Adult depression screening assessment Wild Centeno DO Work Phone: Start: 03-10-2025 Glucose blood reagent strip Piter Weems MD Start: 03-10-2025 POTASSIUM W/ REFLEX TO MAGNESIUM Piter Weems MD Start: 03-10-2025 Glucose blood reagent strip Piter Weems MD Start: 03-10-2025 Radiologic exam chest 2 views Carlos Garcia MD Work Phone: Start: 03-10-2025 Glucose blood reagent strip Piter Weems MD Start: 03-10-2025 Comprehensive metabolic panel Agustin Mckinley DO Work Phone: Start: 03-09-2025 Glucose blood reagent strip Piter Weems MD Start: 03-09-2025 Glucose blood reagent strip Piter Weems MD Start: 03-09-2025 Glucose blood reagent strip Piter Weems MD Start: 03-09-2025 End: 03-09-2025 Comprehensive metabolic panel Agustin Mckinley DO Work Phone: Start: 03-08-2025 Glucose blood reagent strip Agustin Osmel ve DO Work Phone: Start: 03-08-2025 Glucose blood reagent strip Agustin Osmel ve DO Work Phone: Start: 03-08-2025 Glucose blood reagent strip Agustin Osmel ve DO Work Phone: Start: 03-08-2025 End: 03-08-2025 Assay of magnesium Rosalio Packer DO Work Phone: Start: 03-08-2025 BASIC METABOLIC PANEL W/ REFLEX TO MG FOR LOW K Rosalio Packer DO Work Phone: Start: 03-08-2025 Hepatic function panel Rosalio Lee o DO Work Phone: Start: 03-07-2025 Glucose blood reagent strip Carlos Garcia MD Work Phone: Start: 03-07-2025 Glucose blood reagent strip Carlos Garcia MD Work Phone: Start: 03-07-2025 Glucose blood reagent strip Carlos Garcia MD Work Phone: Start: 03-07-2025 Calcium ionized Darlyn Louis MD Work Phone: Start: 03-07-2025 Glucose blood reagent strip Carlos Garcia MD Work Phone: Start: 03-07-2025 Assay of magnesium Rosalio Packer DO Work Phone: Start: 03-07-2025 BASIC METABOLIC PANEL W/ REFLEX TO MG FOR LOW K Rosalio Packer DO Work Phone: Start: 03-06-2025 Glucose blood reagent strip Carlos Garcia MD Work Phone: Start: 03-06-2025 Glucose blood reagent strip Carlos Garcia MD Work Phone: Start: 03-06-2025 Glucose blood reagent strip Carlos Garcia MD Work Phone: Start: 0 End: 03-06-2025 Assay of magnesium Rosalio Packer DO Work Phone: Start: 03-06-2025 BASIC METABOLIC PANEL W/ REFLEX TO MG FOR LOW K Rosalio Packer DO Work Phone: Start: 03-05-2025 Glucose blood reagent strip Carlos Garcia MD Work Phone: Start: 03-05-2025 Glucose blood reagent strip Carlos Garcia MD Work Phone: Start: 03-05-2025 Radiologic exam upr gi trc single contrast study Haleigh Bunch PA-C Work Phone: Start: 03-05-2025 Glucose blood reagent strip Carlos Garcia MD Work Phone: Start: 03-05-2025 Glucose blood reagent strip Carlos Garcia MD Work Phone: Start: 03-05-2025 Radiologic exam abdomen 1 view Rosalio Packer DO Work Phone: Start: 03-05-2025 End: 03-05-2025 Assay of lactate Erin Reynolds MD Work Phone: Start: 03-05-2025 ARTERIAL BLOOD GAS, POC Carlos Garcia MD Work Phone: Start: 03-05-2025 LACTIC ACID,POINT OF CARE Carlos Carlton Work Phone: Start: 03-05-2025 Radiologic exam chest single view Yesenia Santo MD Work Phone: Start: 03-04-2025 Ecg routine ecg w/least 12 lds i&r only Rosalio Packer DO Work Phone: Start: 03-04-2025 Assay of troponin quantitative Gale Erwin DO Work Phone: Start: 03-04-2025 Glucose blood reagent strip Carlos Garcia MD Work Phone: Start: 03-04-2025 Cardiac echo study Procedure Nino Hodge MD Work Phone: Start: 03-04-2025 Cul prsmptv pthgnc organism scrn w/colony estimj Carlos Garcia MD Work Phone: Start: 03-04-2025 Glucose blood reagent strip Carlos Garcia MD Work Phone: Start: 03-04-2025 Cholecystostomy prq w/imaging & catheter plmt Osiris Rogers DO Work Phone: Start: 03-04-2025 Potassium serum plasma/whole blood Gale Erwin DO Work Phone: Start: 03-04-2025 End: 03-04-2025 Assay of troponin quantitative Gale Erwin DO Work Phone: Start: 03-04-2025 Glucose blood reagent strip Carlos Garcia MD Work Phone: Start: 03-04-2025 Glucose blood reagent strip Carlos Garcia MD Work Phone: Start: 03-04-2025 Assay of lactate Erin Reynolds MD Work Phone: Start: 03-03-2025 Basic metabolic panel calcium total Agustin Recio MD Work Phone: Start: 03-03-2025 Glucose blood reagent strip Carlos Garcia MD Work Phone: Start: 03-03-2025 Us abdominal real time w/image limited Erin Reynolds MD Work Phone: Start: 03-03-2025 Glucose blood reagent strip Carlos Garcia MD Work Phone: Start: 03-03-2025 Mri abdomen w/o contrast material Osiris Rogers DO Work Phone: Start: 03-03-2025 End: 03-03-2025 Culture bacterial quanttative colony count urine Erin Reynolds MD Work Phone: Start: 03-03-2025 Iadna s aureus methicillin resist amp probe tq Tulio Medina MD Work Phone: Start: 03-03-2025 Assay of magnesium Erin Reynolds MD Work Phone: Start: 03-03-2025 BLOOD BANK SPECIMEN Carlos Garcia MD Work Phone: Start: 03-03-2025 Blood typing serologic abo Osiris huber DO Work Phone: Start: 03-03-2025 Radiologic exam chest single view Erin Reynolds MD Work Phone: Start: 03-03-2025 End: 03-03-2025 Comprehensive metabolic panel Carlos Garcia MD Work Phone: Start: 03-03-2025 Culture bacterial blood aerobic w/id isolates Erin Reynolds MD Work Phone: Start: 03-03-2025 CULTURE, BLOOD 1 Erin Reynolds MD Work Phone: Start: 03-03-2025 Ecg routine ecg w/least 12 lds i&r only Erin Reynolds MD Work Phone: Start: 12-11-2024 Complete blood count with white cell differential, automated Rose Ohara MD Work Phone: Start: 12-11-2024 Comprehensive metabolic panel Rose Ohara MD Work Phone: Start: 12-11-2024 Computed tomography of abdomen and pelvis with contrast Wild Centeno Favoe Work Phone: Start: 12-11-2024 CT of thorax with contrast Wild burger DO Work Phone: Start: 09-04-2024 Diabetic retinal eye exam Wild Centeno Favoe Work Phone: Start: 08-16-2024 Adult depression screening assessment Giuseppe Jama APRN-MASTERCAM PROGRAMMER Work Phone: Start: 07-16-2024 Microalbumin [Mass/volume] in Urine by Test strip Wild Centeno Favoe Work Phone: Start: 06-07-2024 Mammography Wild Centeno Favoe Work Phone: Start: 03-20-2024 Adult depression screening assessment Wild Furlong DO Work Phone: Start: 01-11-2024 Adult depression screening assessment Wild Furlong DO Work Phone: Start: 12-23-2023 Adult depression screening assessment Wild Furlong DO Work Phone: Start: 12-13-2023 Computed tomography of abdomen and pelvis with contrast DO Wild Furlong Work Phone: Start: 12-13-2023 CT of thorax with contrast DO Wild Fur long Work Phone: Start: 12-13-2023 Ultrasonography of limb DO Wild Furlon g Work Phone: Start: 09-01-2023 Diabetic retinal eye exam Wild Helderlong DO Work Phone: Start: 08-09-2023 Ultrasonography of limb DO Wild Furlon g Work Phone: Start: 05-13-2023 Mammography Zabrina Cortez BUTTONHOLE FACER Start: 04-07-2023 Ultrasonography of limb DO Wild Furlon g Work Phone: Start: 03-14-2023 Microalbumin [Mass/volume] in Urine by Test strip Wildlewis Pendletonlong DO Work Phone: Start: 12-21-2022 Computed tomography of abdomen and pelvis with contrast DO Wild Furlong Work Phone: Start: 12-21-2022 CT of thorax with contrast DO Wild Fur long Work Phone: Start: 09-21-2022 Ultrasonography of limb DO Wild Furlon g Work Phone: Start: 06-29-2022 Computed tomography of abdomen and pelvis with contrast DO Wild Furlong Work Phone: Start: 06-29-2022 CT of thorax with contrast DO Wild Fur long Work Phone: Start: 03-29-2022 Ultrasonography of limb DO Wild Furlon g Work Phone: Start: 12-28-2021 Computed tomography of abdomen and pelvis with contrast DO Wild Centeno Work Phone: Start: 12-28-2021 CT of thorax with contrast DO Wild arzate Work Phone: Start: 09-24-2021 Ultrasonography of limb DO Wild burger Work Phone: Start: 06-19-2021 MRI of head DO Wild Centeno Work Phone: Start: 06-17-2021 Positron emission tomography with computed tomography DO Wild Centeno Work Phone: Start: 03-27-2021 Ultrasound procedure on topographic region DO Wild Centeno Work Phone: Start: 12-16-2020 Obdulio Flowers Bilateral tubal ligation Nicole hy Lue Cataract surgery Wild Tate elena History of cholecystectomy S/P l aparoscopic cholecystectomy Wild Centeno DO Work Phone: History of cholecystectomy S/P cholecyste ctomy Sarah L Nick BOX OFFICE CLERK-MASTERCAM PROGRAMMER Work Phone: History of cholecystectomy Histo ry of cholecystectomy Wild Centeno DO Work Phone: History of operative procedure on knee Shavon Lue History of repair of musculotendinous cuff of shoulder Shavon Lue Ligation of fallopian tube D josette Centeno Phacoemulsification of cataract with intraocular lens implantation Shavon Lue Repair of musculoten dinous cuff of shoulder Wild Centeno Plan of Treatment Date Care Activity Detail Author Start: 07-17-2026 Depression Screening Depression Scre [facility] Start: 07-17-2026 Fall Risk Screening Fall Risk Screen ing [facility] Start: 07-17-2026 Tobacco Screening Tobacco Screening [facility] Start: 05-14-2026 Depression Screening Depression Scre [facility] Start: 05-14-2026 Fall Risk Screening Fall Risk Screen ing [facility] Start: 05-14-2026 Tobacco Screening Tobacco Screening [facility] Start: 05-07-2026 Tobacco Screening Tobacco Screening [facility] Start: 05-03-2026 Depression Screening Depression Scre ening [facility] Start: 05-03-2026 Fall Risk Screening Fall Risk Screen ing [facility] Start: 05-03-2026 Tobacco Screening Tobacco Screening [facility] Start: 04-24-2026 Depression Screening Depression Scre ening [facility] Start: 04-24-2026 Fall Risk Screening Fall Risk Screen ing [facility] Start: 04-24-2026 Tobacco Screening Tobacco Screening [facility] Start: 04-13-2026 GFR test (Diabetes, CKD 3-4, OR last GFR 15-59) GFR test (Diabetes, CKD 3-4, OR last GFR 15-59) [facility] Start: 04-13-2026 Hemoglobin A1c measurement A1C test (Diabetic or Prediabetic) [facility] Start: 03-25-2026 Screening for malign ant neoplasm of colon [facility] Start: 03-21-2026 Depression Screening Depression Scre ening [facility] Start: 03-21-2026 Tobacco Screening Tobacco Screening [facility] Start: 03-10-2026 [facility] Start: 11-07-2025 DTaP,Tdap and Td Vac cines (2 - Td or Tdap) DTaP,Tdap and Td Vaccines (2 - Td or Tdap) [facility] Comment on above: Postponed from 09/18 (Vaccine Not Available) Start: 10-16-2025 End: 10-16-2025 Patient encounter procedure 10/16/2025 8:30 AM EST [facility] [address] [place] [address] Wild Centeno, [address], [place] [address] [facility] Start: 09-04-2025 Glaucoma screening Diabetic Op hthalmology Exam [facility] Start: 08-20-2025 Tobacco Screening Tobacco Screening [facility] Start: 08-16-2025 Adult BMI Screening Adult BMI Screen ing [facility] Start: 08-16-2025 Depression Screening Depression Scre ening [facility] Start: 08-16-2025 Fall Risk Screening Fall Risk Screen ing [facility] Start: 08-16-2025 Tobacco Screening Tobacco Screening [facility] Start: 08-07-2025 Administration of varicella zoster vaccine Zoster (Shingles) Vaccine (1 of 2) [facility] Comment on above: Postponed from 03/09 (Vaccine Not Available) Start: 08-07-2025 Influenza vaccination Influenza Vacc ine [facility] Comment on above: Postponed from 07/08 (Vaccine Not Available) Start: 07-17-2025 End: 07-17-2025 Patient encounter procedure 07/17/2025 9:00 AM EDT [facility] [address] [place] [address] Wild Centeno DO [address], [place] [address] [facility] Internal Medicine - Family Medicine Start: 07-16-2025 Adult BMI Screening Adult BMI Screen ing [facility] Start: 07-16-2025 Bacteria identified in Urine by Culture Urine Culture [facility] Start: 07-16-2025 Tobacco Screening Tobacco Screening [facility] Start: 07-16-2025 Urine screening for protein Urine Microalbumin [facility] Start: 07-16-2025 Urine culture [facility] Start: 07-08-2025 Influenza vaccination Influenza Vacc ine [facility] Start: 06-24-2025 End: 06-24-2025 Patient encounter procedure 06/24/2025 9:30 AM EDT [facility] Medicine [address] [place] [address] Wild Centeno DO [address], [place] [address] [facility] Internal Medicine - Family Medicine Start: 06-17-2025 End: 06-17-2025 Telemedicine consultation with patient 06/17/2025 10:00 AM EDT Telemedicine [facility] Pulmonary/Sleep Medicine [address] [facility] [address] [place] [phone] Marie Gray MD [address] [facility], [address] Left practice 04/06 [place] [address] [facility] Start: 06-07-2025 Screening for malign ant neoplasm of breast Mammogram [facility] Start: 05-14-2025 End: 05-14-2025 Patient encounter procedure 05/14/2025 2:00 PM EDT Office Visit [facility] Internal Medicine - Family Medicine [address] [place] [address] Wild Centeno, [address], [facility] [place] [address] [facility] Internal Medicine - Family Medicine Start: 05-07-2025 End: 05-07-2025 Clinical Support 05/07/2025 8:00 PM EDT Clinical Support [facility] Sleep Disorders [address] [place] [phone] Wild Centeno, [address], [place] [address] [facility] - Sleep Disorders Start: 05-03-2025 End: 05-03-2025 Clinical Support 05/03/2025 7:30 PM EDT Clinical Support [facility] Sleep Disorders [address] [place] [phone] Wild Centeno, [address], [facility] [address] [facility] - Sleep Disorders Start: 05-03-2025 End: 05-03-2026 US.doppler Lower extremity vein - left Vas venous duplex lwr single left Vascular Ultrasound STAT Localized swelling of left foot Expected: 05/03/2025, Expires: 05/03/2026 [facility] Comment on above: Expected: 05/03/2025 , Expires: 05/03/2026 Start: 04-23-2025 End: 04-23-2025 Patient encounter procedure 04/23/2025 12:45 PM EDT Office Visit [facility] General Surgery [address] [facility] [address] [place] [address] s/p lap jt 04/10/25 [facility] General Surgery Comment on above: s/p lap jt 04/10/25 Start: 03-26-2025 End: 03-26-2025 Patient encounter procedure 03/26/2025 10:40 AM EDT Office Visit [facility] Internal Medicine - Family Medicine [address] [place] [address] [facility] Internal Medicine - Family Medicine Start: 03-21-2025 End: 03-21-2025 Patient encounter procedure 03/21/2025 11:00 AM EDT Office Visit [facility] Internal Medicine - Family Medicine [address] [place] [address] Wild Centeno, DO [address], [facility] [address] [facility] Internal Medicine - Family Medicine Start: 03-20-2025 Adult BMI Screening Adult BMI Screen ing [facility] Start: 03-20-2025 Depression Screening Depression Scre ening [facility] Start: 03-20-2025 Fall Risk Screening Fall Risk Screen ing [facility] Start: 03-20-2025 Medicare Annual Well ness Visit Medicare Annual Wellness Visit [facility] Start: 03-03-2025 Bacteria identified in Urine by Culture Urine Culture [facility] Start: 03-03-2025 Urine culture [facility] Start: 01-10-2025 Adult BMI Screening Adult BMI Screen ing [facility] Start: 01-10-2025 Depression Screening Depression Scre ening [facility] Start: 01-10-2025 Fall Risk Screening Fall Risk Screen ing [facility] Start: 01-10-2025 Tobacco Screening Tobacco Screening [facility] Start: 12-26-2024 Patient referral [facility] Work Phone: Start: 12-23-2024 Adult BMI Screening Adult BMI Screen ing [facility] Start: 12-23-2024 Depression Screening Depression Scre ening [facility] Start: 12-23-2024 Fall Risk Screening Fall Risk Screen ing [facility] Start: 12-23-2024 Tobacco Screening Tobacco Screening [facility] Start: 2024 Respiratory Syncytia l Virus (RSV) or age 60 yrs+ (1 - 1-dose 75+ series) Respiratory Syncytial Virus (RSV) or age 60 yrs+ (1 - 1-dose 75+ series) [employer] Start: 2024 [employer] Start: 09-12-2024 Adult BMI Screening Adult BMI Screen ing [facility] Start: 09-12-2024 Depression Screening Depression Scre ening [facility] Start: 09-12-2024 Tobacco Screening Tobacco Screening [facility] Start: 09-01-2024 Glaucoma screening Diabetic Op hthalmology Exam [facility] Start: 07-16-2024 End: 07-16-2024 Patient encounter procedure 07/16/2024 8:30 AM EDT Office [facility] - Family Medicine [address] [place] [place] [address] Wild Centeno, [address], [facility] [address] [facility] Internal Medicine - Family Medicine Start: 07-12-2024 Fall Risk Screening Fall Risk Screen ing [facility] Start: 07-08-2024 COVID-19 Vaccine ( season) COVID-19 Vaccine ( season) [facility] Start: 07-08-2024 COVID-19 Vaccine ( season) COVID-19 Vaccine () [facility] Start: 07-08-2024 Influenza vaccination [facility] Start: 07-08-2024 [facility] Start: 06-07-2024 End: 06-07-2024 Patient encounter procedure 06/07/2024 11:30 AM EDT Appointment [facility] - [facility]amm[facility] [address] [place] [phone] Wild Centeno DO [address], [place] [address] [facility] - Mammogram [facility] Start: 05-28-2024 End: 05-28-2024 Patient encounter procedure 05/28/2024 11:30 AM EDT Appointment [facility] - Mammogram [facility] [address] [place] [phone] [facility] - Mammogram [facility] Start: 05-22-2024 End: 05-22-2025 DBT Breast - bilateral screening Mammography screening bilateral with CAD Imaging Routine Encounter for screening mammogram for malignant neoplasm of breast Expected: 05/22/2024, Expires: 05/22/2025 [facility] Work Phone: Comment on above: Expected: 05/22/2024 , Expires: 05/22/2025 Start: 05-13-2024 Screening for malign ant neoplasm of breast Mammogram [facility] Start: 03-20-2024 End: 03-20-2024 Patient encounter procedure 03/20/2024 11:10 AM EDT Office [facility] Family Medicine [address] [place] [address] [facility] Internal Medicine - Family Medicine Start: 03-14-2024 Diabetic foot examination Diabetic F oot Exam [facility] Start: 03-14-2024 Urine screening for protein [facility] Start: 03-10-2024 Medicare Annual Well ness (AWV) Medicare Annual Wellness (AWV) [facility] Start: 03-10-2024 Medicare Annual Well ness Visit Medicare Annual Wellness Visit [facility] Start: 01-11-2024 End: 01-11-2024 Patient encounter procedure 01/11/2024 10:50 AM EST Office Visit [facility] Internal Medicine - Family Medicine [address] [place] [place] [address] Wild Centeno, [address], [place] [address] [facility] - Family Medicine Start: 12-28-2023 End: 12-28-2023 ambulatory 12/28/2023 2:30 PM EST Treatment [facility] [address] [place] [address] Zabrina Cortez [employer] [facility] Start: 12-26-2023 End: 12-26-2023 ambulatory 12/26/2023 2:30 PM EST Treatment [facility] [address] [place] [address] Zabrina Cortez [employer] [facility] Start: 12-21-2023 End: 12-21-2023 ambulatory 12/21/2023 2:30 PM EST Treatment [facility] [address] [place] [address] Zabrina Cortez [employer] [facility] Start: 12-19-2023 End: 12-19-2023 ambulatory [facility] Comment on above: Arrived Start: 12-14-2023 End: 12-14-2023 ambulatory 12/14/2023 2:30 PM EST Treatment [facility] [address] [place] [address] Zabrina Cortez, [employer]ER Arrived [facility] Comment on above: Arrived Start: 10-03-2023 Annual Wellness Visi t (Medicare) Annual Wellness Visit (Medicare) [employer] Start: 10-03-2023 [employer] Start: 07-08-2023 COVID-19 Vaccine ( season) COVID-19 Vaccine ( season) [facility] [employer] [facility] Start: 09-18-2022 DTaP,Tdap and Td Vac cines (2 - Td or Tdap) DTaP,Tdap and Td Vaccines (2 - Td or Tdap) [facility] Start: 09-18-2022 DTaP/Tdap/Td vaccine (2 - Td or Tdap) DTaP/Tdap/Td vaccine (2 - Td or Tdap) [employer] Start: 09-18-2022 [employer] Start: 12-08-2021 [facility] Start: 10-06-2021 [facility] Start: 07-15-2021 End: 07-15-2021 [facility] Start: 07-10-2021 [facility] Start: 06-29-2021 [facility] Start: 03-09-2013 Administration of varicella zoster vaccine Zoster (Shingles) Vaccine (1 of 2) [facility] [employer] [facility] Start: 03-09-2013 Shingles vaccine (1 of 2) Kraft gles vaccine (1 of 2) [employer] Start: 03-09-2013 [employer] Start: 2004 Screening for osteoporosis [facility] [employer] [facility] Start: 1994 Screening for malign ant neoplasm of colon [facility] Start: 1967 Adult BMI Follow Up Plan Adult BMI F ollow Up Plan [facility] [employer] Start: 1967 Glaucoma screening [facility] Start: 1967 Hepatitis C screening [facility] Start: 1967 Urine screening for protein [facility] Start: 1961 Depression Screen Depression Screen [facility] Start: 1961 [facility] Start: 1959 Diabetic foot examination [facility] Start: 1959 Glaucoma screening Diabetes: R etinopathy Screening [facility] Start: 1959 Hemoglobin A1c measurement [facility] Start: 1959 Lipid panel [facility] Start: 1949 Hemoglobin A1c measurement Diabetes: Hemoglobin A1C [facility] Start: 1949 Screening for malign ant neoplasm of colon [facility] ABG draw [facility] End: 04-20-2025 Basic metabolic 2000 panel - Serum or Plasma Basic Metabolic Panel Lab Routine Daily for 10 Days starting 04/11/2025 until 04/20/2025, 3 completed [facility] [employer] Comment on above: Daily for [address] arting 04/11/2025 until 04/20/2025, 3 completed End: 04-20-2025 Calcium, Ionized Calcium, Ionized Lab Routine Daily for 10 Days starting 04/11/2025 until 04/20/2025, 3 completed [facility] Comment on above: Daily for [address] arting 04/11/2025 until 04/20/2025, 3 completed End: 03-11-2025 CBC W Auto Differential panel - Blood [facility] End: 04-20-2025 CBC W Auto Differential panel - Blood CBC with Auto Differential Lab Routine Daily for 10 Days starting 04/11/2025 until 04/20/2025, 3 completed [facility] Comment on above: Daily for [address] arting 04/11/2025 until 04/20/2025, 3 completed End: 05-03-2026 CBC W Auto Differential panel - Blood CBC auto differential Lab Routine S/P cholecystectomy Abnormal CBC 1 Occurrences starting 05/03/2025 until 05/03/2026 [facility] Comment on above: 1 Occurrences starti ng 05/03/2025 until 05/03/2026 CBC W Auto Different ial panel - Blood CBC auto differential Lab Routine S/P cholecystectomy Abnormal CBC 05/03/2025 10:00 AM EDT [facility] Comprehensive metabo lic 1999 panel - Serum or Plasma [facility] Work Phone: Comprehensive metabo lic 1999 panel - Serum or Plasma [facility] Comprehensive metabo lic 1999 panel - Serum or Plasma [facility] Comprehensive metabo lic 1999 panel - Serum or Plasma [facility] Comprehensive metabo lic 1999 panel - Serum or Plasma [facility] Comprehensive metabo lic 1999 panel - Serum or Plasma [facility] End: 03-11-2025 Comprehensive metabolic 2000 panel - Serum or Plasma [facility] End: 05-03-2026 Comprehensive metabolic 2000 panel - Serum or Plasma Comprehensive metabolic panel Lab Routine S/P cholecystectomy 1 Occurrences starting 05/03/2025 until 05/03/2026 [facility] Work Phone: Comment on above: 1 Occurrences starti ng 05/03/2025 until 05/03/2026 Comprehensive metabo lic 1999 panel - Serum or Plasma Comprehensive metabolic panel Lab Routine S/P cholecystectomy 05/03/2025 10:00 AM EDT [employer] Continuous positive airway pressure ventilation treatment [facility] Continuous pulse oximetry [place] [facility] CT Abdomen and Pelvi s W contrast IV [facility] CT Abdomen and Pelvi s W contrast IV [facility] CT Abdomen and Pelvi s W contrast IV [facility] CT Abdomen and Pelvi s W contrast IV [facility] CT Chest W contrast IV [facility] CT Chest W contrast IV [facility] CT Chest W contrast IV [facility] CT Chest W contrast IV [facility] Glucose [Mass/volume ] in Serum or Plasma [employer] Glucose [Mass/volume ] in Serum or Plasma [facility] Glucose [Mass/volume ] in Serum or Plasma POCT Glucose Point of Care Testing STAT As Needed until discontinued starting 04/10/2025 [employer] Comment on above: As Needed until disc ontinued starting 04/10/2025 End: 07-16-2025 Hemoglobin A1c/Hemoglobin.total in Blood Hemoglobin A1c Lab Routine 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 (CMS-HCC) 1 Occurrences starting 07/16/2024 until 07/16/2025 [employer] Work Phone: Comment on above: 1 Occurrences starti ng 07/16/2024 until 07/16/2025 End: 04-24-2026 Home sleep study Home sleep study Sleep Center Routine Hypersomnia 1 Occurrences starting 04/24/2025 until 04/24/2026 [employer] Work Phone: Comment on above: 1 Occurrences starti ng 04/24/2025 until 04/24/2026 Lactate dehydrogenas e [Enzymatic activity/volume] in Unspecified specimen [facility] Work Phone: Lactate dehydrogenas e [Enzymatic activity/volume] in Unspecified specimen [facility] End: 03-11-2025 Magnesium [Mass/volume] in Serum or Plasma [facility] End: 04-20-2025 Magnesium [Mass/volume] in Serum or Plasma Magnesium Lab Routine Daily for 10 Days starting 04/11/2025 until 04/20/2025, 3 completed [employer] Comment on above: Daily for [address] arting 04/11/2025 until 04/20/2025, 3 completed End: 07-16-2025 Microalbumin - Albumin: Creatinine Urine Ratio Microalbumin - Albumin: Creatinine Urine Ratio Lab Routine 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 ([facility]) 1 Occurrences starting 07/16/2024 until 07/16/2025 [employer] Comment on above: 1 Occurrences starti ng 07/16/2024 until 07/16/2025 Nasal Cannula Oxygen Nasal Cannu la Oxygen Respiratory Care Routine Daily until discontinued starting 04/13/2025 [employer] Work Phone: Comment on above: Daily until disconti nued starting 04/13/2025 Non-Heated High Flow Nasal Cannula [employer] Work Phone: Oxygen therapy [Mini mum Data Set] [employer] Oxygen therapy [Mini mum Data Set] Initiate Oxygen Therapy Protocol Respiratory Care Routine As Needed until discontinued starting 04/10/2025 [employer] Comment on above: As Needed until disc ontinued starting 04/10/2025 Pathology study Surgical Patholo gy Lab Routine Cholecystitis Release Upon Ordering for 1 Occurrences starting 04/10/2025 [employer] Comment on above: Release Upon Orderin g for 1 Occurrences starting 04/10/2025 Patient referral [facility] Work Phone: POCT EKG POCT EKG ECG Rou tk Irregular heart beat 05/03/2025 10:17 AM EDT [employer] End: 06-17-2026 Polysomnography 4 or more parameters with PAP titration Polysomnography 4 or more parameters with PAP titration Sleep Center Routine RONEN (obstructive sleep apnea) Class 3 severe obesity due to excess calories with serious comorbidity and body mass index (BMI) of 40.0 to 44.9 in adult ([facility]) Essential hypertension, benign 1 Occurrences starting 06/17/2025 until 06/17/2026 [employer] Work Phone: Comment on above: 1 Occurrences starti ng 06/17/2025 until 06/17/2026 End: 04-29-2026 PSG Diagnostic PSG Diagnostic [facility] Routine Hypersomnia Excessive daytime sleepiness 1 Occurrences starting 04/29/2025 until 04/29/2026 [employer] Work Phone: Comment on above: 1 Occurrences starti ng 04/29/2025 until 04/29/2026 End: 03-03-2025 Respiratory care evaluation only [facility] [employer] [facility] Spirometry panel [facility] End: 07-16-2025 Thyrotropin [Units/volume] in Serum or Plasma TSH Lab Routine Type 2 diabetes mellitus with stage 3a chronic kidney disease, with long-term current use of insulin ([facility]) 1 Occurrences starting 07/16/2024 until 07/16/2025 [employer] Comment on above: 1 Occurrences starti ng 07/16/2024 until 07/16/2025 US Extremity [facility] Work Phone: Extremity [facility] US Extremity [facility] Immunizations Immunization Date Immunization Notes Care Provider Faustina [facility] 08-16-2024 Seasonal trivalent influenza vaccine, adjuvanted, preservative free Giuseppe HART Work Phone: [facility] 08-16-2024 Immunization, In Clinic,; Translations: [Drug or medicament (substance)] Giuseppe Jama APRN-[employer] PROGRAMMER Work Phone: [facility] 08-16-2024 influenza virus vaccine, unspecified formulation Wild Furlong DO Work Phone: [facility] 09-12-2023 Influenza Vaccine, Quadrivalent, Adjuvanted Wild Furlong DO Work Phone: [facility] 09-12-2023 influenza virus vaccine, unspecified formulation Wild Furlong DO Work Phone: [facility] 10-08-2022 influenza virus vaccine, unspecified formulation Shavon Lue [facility] 10-08-2022 Influenza, High-dose , Quadrivalent Wild Furlong DO Work Phone: [facility] 10-06-2021 SARS-CoV-2 (COVID-19 ) mRNA BNT-162u2 vax Shavon Lue [facility] 01-22-2021 SARS-CoV-2 (COVID-19 ) mRNA BNT-162b2 vax Shavon Lue [facility] 01-01-2021 SARS-CoV-2 (COVID-19 ) mRNA BNT-162b2 vax Shavon Lue [facility] 10-12-2020 influenza virus vaccine, unspecified formulation Shavon Lue [facility] 10-12-2020 influenza, injectabl e, quadrivalent, contains preservative Wild Furlong DO Work Phone: [facility] 09-03-2019 influenza virus vaccine, unspecified formulation Shavon Lue [facility] 09-03-2019 Influenza, injectabl e, Madin Soraida Canine Kidney, quadrivalent with preservative Wild Furlong DO Work Phone: [facility] 10-24-2017 influenza virus vaccine, unspecified formulation Shavon Lue [facility] 10-24-2017 Influenza, injectabl e, Madin Maxwelton Canine Kidney, preservative free, quadrivalent Wild Furlong DO Work Phone: [facility] 10-24-2017 pneumococcal polysaccharide vaccine, 23 valent Wild Furlong DO Work Phone: [facility] 09-05-2016 influenza virus vaccine, unspecified formulation Shavon Lue [facility] 09-05-2016 influenza, seasonal, injectable, preservative free Wild Furlong DO Work Phone: [facility] 08-05-2016 pneumococcal conjuga te vaccine, 13 valent Wild Furlong DO Work Phone: [facility] 09-07-2015 influenza virus vaccine, unspecified formulation Shavon Lue [facility] 09-07-2015 influenza, seasonal, injectable, preservative free Wild Furlong DO Work Phone: [facility] 01-12-2013 varicella virus vaccine Denn is Furlong DO Work Phone: [facility] 01-12-2013 zoster vaccine, unspecified formulation Wild Furlong DO Work Phone: [facility] 09-18-2012 tetanus toxoid, redu bret diphtheria toxoid, and acellular pertussis vaccine, adsorbed Wild Furlong DO Work Phone: [employer] 1949 pneumococcal conjuga te vaccine, 7 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 Payers Date Payer Category Payer Self-pay [id number] 2018 Commercial Indemnity [facility] [employer] Member Subscriber Plan / Payer (Effective 2018-Present) Name: Tosha Mcneal Relation to Subscriber: Self Name: Tosha Mcneal Payer ID: Not on file Type: Not on file Address: [place] [id number] 2018 Unknown 2014 Medicare 2014 Private Health Insurance [id number] 1959 Medicare [id number] 1959 Unknown [id number] 1949 Unknown [id number] .16840.1.468007.3.579.2. 593 1949 Unknown [id number] .840.1.576660.3.579.2. 593 1949 Unknown [id number] .16840.1.674594.3.579.2. 593 1949 Unknown [id number] .16840.1.048103.3.579.2. 593 1949 Unknown [id number] 2.16.840.1.494880.3.579.2. 173 1949 Unknown [id number] 2.16.840.1.296315.3.579.2. 173 1949 Unknown [id number] 2.16.840.1.700356.3.579.2. 196 1949 Unknown [id number] 2.16.840.1.776937.3.579.2. 1259 1949 Unknown [id number] 2.16.840.1.592882.3.579.2. 1259 1949 Unknown [id number] 2.16.840.1.677519.3.579.2. 1259 1949 Unknown [id number] 2.16.840.1.193421.3.579.2. 1259 1949 Unknown [id number] 2.16.840.1.367618.3.579.2. 1259 1949 Unknown [id number] 2.16.840.1.581754.3.579.2. 1259 1949 Unknown [id number] 2.16.840.1.474748.3.579.2. 1259 1949 Unknown [id number] 2.16.840.1.127082.3.579.2. 1259 1949 Unknown [id number] 2.16.840.1.949515.3.579.2. 1259 1949 Unknown [id number] 2.16.840.1.701671.3.579.2. 1259 1949 Unknown [id number] 2.16.840.1.096577.3.579.2. 1259 1949 Unknown [id number] 2.16.840.1.335021.3.579.2. 1259 1949 Unknown [id number] 2.16.840.1.842742.3.579.2. 1259 1949 Unknown [id number] 2.16.840.1.729445.3.579.2. 1259 1949 Unknown [id number] 2.16.840.1.072280.3.579.2. 1259 1949 Unknown [id number] 2.16.840.1.591394.3.579.2. 1259 1949 Unknown [id number] 2.16.840.1.402282.3.579.2. 1259 1949 Unknown [id number] 2.16.840.1.126880.3.579.2. 1259 1949 Unknown [id number] 2.16.840.1.731981.3.579.2. 1259 1949 Unknown [id number] 2.16.840.1.096221.3.579.2. 1259 1949 Unknown [id number] 2.16.840.1.513327.3.579.2. 1259 1949 Unknown [id number] 2.16.840.1.155242.3.579.2. 1286 1950 Unknown [id number] 2.16.840.1.960279.3.579.2. 1286 1950 Unknown [id number] 2.16.840.1.274691.3.579.2. 175 1949 Unknown [id number] 2.16.840.1.376440.3.579.2. 175 1949 Unknown [id number] 2.16.840.1.527267.3.579.2. 1286 1949 Unknown [id number] 2.16.840.1.303456.3.579.2. 1286 1949 Unknown [id number] 2.16.840.1.956687.3.579.2. 727 1950 Unknown [id number] 2.16.840.1.255811.3.579.2. 727 1949 Unknown [id number] 2.16.840.1.774072.3.579.2. 1286 1949 Unknown [id number] 2.16.840.1.574948.3.579.2. 1286 1949 Unknown [id number] 2.16.840.1.046542.3.579.2. 1286 1949 Unknown [id number] 2.16.840.1.515909.3.579.2. 1286 1949 Unknown [id number] 2.16.840.1.567253.3.579.2. 1286 1949 Unknown [id number] 2.16.840.1.135546.3.579.2. 1286 1949 Unknown [id number] 2.16.840.1.138304.3.579.2. 1286 Unknown [facility] [id number] Unknown [id number] 2.16.840.1.813301.3.579.2. 531 Unknown [id number] 2.16.840.1.719873.3.579.2. 531 Unknown [id number] 2.16.840.1.975746.3.579.2. 531 Unknown [id number] 2.16.840.1.644450.3.579.2. 531 Social History Date Type Detail Facility Assertion Tobacco smoking consumption unknown (finding) [facility] Work Phone: Start: 12-16-2020 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 Start: 1950 Sex Assigned At Female [facility] Start: 03-31-2022 End: 09-06-2022 Tobacco smoking status NHIS Never smoked tobacco (finding) [facility] Start: 09-06-2022 End: 11-04-2023 Tobacco use and exposure Smokeless tobacco non-user [facility] Start: 11-04-2023 End: 07-17-2025 Alcohol intake Ex-drinker (finding) [facility] Start: 12-18-2020 End: 11-04-2023 History of Social function [facility] Start: 12-18-2020 End: 11-04-2023 Tobacco use panel [facility] Start: 11-04-2023 Alcohol Comment Caffeine: 1-2 cups/day [facility] Start: 1950 Sex Assigned At Not on file [facility] Do you belong to any clubs or organizations such as gnosticism groups, unions, fraternal or athletic groups, or school groups? Yes [facility] Are you now , , , , never or living with a partner? [facility] How often to you hav e a drink containing alcohol? Never [facility] How many standard dr inks containing alcohol do you have on a typical day? Patient does not drink [facility] Do you feel stress - tense, restless, nervous, or anxious, or unable to sleep at night because your mind is troubled all the time - these days [OSQ] Not at all [facility] Start: 06-12-2015 End: 12-26-2024 Sex Female (finding) [facility] Has the electric, Pairy, oil, or water company threatened to shut off services in your home in past 12Mo No Bon [employer] (I/We) worried radha er (my/our) food would run out before (I/we) got money to buy more. Never true [place] Sexual Orientation [facility] Medical Equipment Procedure Code Equipment Code Equipment [...] Elena Plus test strips TEST once daily [id number] End: 03-21-2025 [id number] Start: 10-03-2023 [id number] Start: 10-03-2023 [id number] Start: 10-03-2023 [id number] Start: 10-03-2023 [id number] Start: 10-03-2023 [id number] Start: 10-03-2023 Clip Int Xl Yel [employer] Hem-[facility]-Manolo We - [id number] Start: 04-10-2025 Goals Date Patient Goal Desired Activity /State Functional Status Date Assessment Result Facility NEGATED: Highlighted row Functional performance Functional status health issues are not documented Disease [facility] Phone: Mental Status Date Assessment Result Facility NEGATED: Highlighted row Cognitive function [Interpretation] Cognitive status health issues are not documented Disease [facility] Work Phone: Clinical Notes 10-01-2020 to 07-19-2025 Telephone Encounter - Amanda Poole CMA - 07/19/2025 8:33 AM EDTTelephone Encounter - Wild Centeno DO - 07/19/2025 8:33 AM EDTTelephone Encounter - Amanda Poole CMA - 07/19/2025 8:33 AM EDT Note Date & Type Note Facility 07-19-2025 Miscellaneous Notes Formattin g of this note might be different from the original. Patient called and her back ache is so bad but the script that was sent in is 400.00 is there anything else to help? Okay I sent in gabapentin for her Patient was notified documented in this encounter [facility] 07-19-2025 Telephone encount er Note Patient called and her back ache is so bad but the script that was sent in is 400.00 is there anything else to help? [facility] 07-19-2025 Telephone encount er Note Okay I sent in gabapentin for her [facility] 07-19-2025 Telephone encount er Note Patient was notified [facility] 07-17-2025 History of Presen t illness Narrative Subjective Patient ID: Tosha Mcneal is a 74 y.o. female. Alpa presents today for a diabetic recheck. She is taking all of her medications although she frequently forgets the noon lunchtime dose of her pre meal bolus insulin. She is wearing the Dexcom. She still does not feel well following her gallbladder surgery. Everything she eats tastes salty. She can only have a few bites and then she is done eating. She does not have any heartburn or acid reflux symptoms. Her low back has been bothering her. Tylenol does not work. It is like taking candy . She would like something stronger for pain. It radiates into her buttocks but does not go down to her legs. She has known lumbar and thoracic degenerative disc disease. She is needing a cane to ambulate. She is having a cystoscopy for a possible kidney stone. The following portions of the patient's history were reviewed and updated as appropriate: allergies, current medications, past family history, past medical history, past social history, past surgical history, problem list, and medication reconciliation was completed including current medication and post discharge medication. Review of Systems Constitutional: Positive for appetite change. Eyes: Negative. Respiratory: Negative. Cardiovascular: Negative. Gastrointestinal: Negative. Genitourinary: Positive for frequency. Musculoskeletal: Positive for back pain and gait problem. Psychiatric/Behavioral: Negative. Objective Physical Exam Vitals reviewed. Constitutional: General: She is not in acute distress. Appearance: Normal appearance. She is morbidly obese. She is not ill-appearing. Cardiovascular: Rate and Rhythm: Normal rate and regular rhythm. Pulses: Dorsalis pedis pulses are 1+ on the right side and 1+ on the left side. Posterior tibial pulses are 1+ on the right side and 1+ on the left side. Heart sounds: Normal heart sounds. No murmur heard. Pulmonary: Effort: Pulmonary effort is normal. No respiratory distress. Breath sounds: Normal breath sounds. No stridor. No wheezing, rhonchi or rales. Musculoskeletal: Cervical back: Neck supple. Right foot: Bunion present. Feet: Right foot: Protective Sensation: 10 sites tested. 10 sites sensed. Skin integrity: Callus present. Toenail Condition: Right toenails are normal. Left foot: Protective Sensation: 10 sites tested. 10 sites sensed. Toenail Condition: Left toenails are normal. Lymphadenopathy: Cervical: No cervical adenopathy. Neurological: Mental Status: She is alert. Gait: Gait abnormal (Ambulating with a cane). Psychiatric: Mood and Affect: Mood normal. Behavior: Behavior normal. Thought Content: Thought content normal. Judgment: Judgment normal. Assessment/Plan Tosha was seen today for 3 month f/u. Diagnoses and all orders for this visit: 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 ([facility]) - POCT Hemoglobin A1c - Diabetic foot exam performed A1c was pretty good at 7%. We did review her Dexcom and her blood sugars do rise during the day likely due to eating. Her morning blood sugars are pretty good. I would like her to increase her pre meal insulin to 8 units 3 times a day. Her foot exam was abnormal. She would qualify for diabetic shoes. Blood pressure is borderline high. Degeneration of intervertebral disc of lumbar region with discogenic back pain - suzetrigine (JOURNAVX) 50 mg tablet; Take 1 tablet (50 mg total) by mouth every 12 (twelve) hours. She is having low back pain. Encouraged exercises. Will try journvx. Sample given Morbid obesity ([facility]) Other orders - insulin aspart U-100 (NovoLOG Flexpen U-100 Insulin) 100 unit/mL (3 mL) insulin pen; Inject 8 Units under the skin in the morning and 8 Units at noon and 8 Units in the evening. Inject with meals. documented in this encounter [facility] 07-17-2025 Evaluation note Diagnosis 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 ([facility])- Primary Degeneration of intervertebral disc of lumbar region with discogenic back pain Morbid obesity ([facility]) Morbid obesity documented in this encounter [facility]08-21-2025 NoteCardiovascular Medicine [facility] SUBJECTIVE Chief Complaint Patient presents with Hypertension Congestive Heart Failure Hyperlipidemia Tosha Mcneal is a 74 y.o. female here for follow-up. HPI PMHx: HFpEF, HTN, HLD, RONEN 06/27/2025 Since last seen she had her gallbladder removed. She hasn't been feeling the greatest, food tastes different since her surgery, poor appetite. She had a sleep study, positive for RONEN. She is waiting to get the machine, feels like a lot of waiting. She is pending a kidney biopsy for the spot on her kidney. This will be done Jul 30. When her leg swelling is worse, she will take an extra tablet of lasix and this helps. Her FINLEY is unchanged. She denies c/o CP, orthopnea, PND, palpitations. 03/26/2025 Since last seen, she was admitted to [facility] with acute cholecystitis. Her troponin levels were mildly elevated, peaked at 112. She denied any c/o chest pain. She is down 19# since last seen. After her recent hospital stay, her amlodipine was stopped and lasix was changed to daily. Her breathing is feeling better and her leg edema is improved. 02/19/2025 She c/o increased BLE edema and increased FINLEY since last seen last month. Her weight is up 6#. Her chest feels heavy when she's short of breath. She c/o orthopnea. She has dry cough. Cough is worse in the morning. She feels bloated. Denies any c/o chest pain. 01/17/2025 She notes her FINLEY and leg [...] Enlarged pituitary gland Rupture of operation wound Acute cholecystitis BOO (acute kidney injury) Arm fracture Carpal tunnel syndrome Gout History of kidney stones Hydroureteronephrosis Hypovolemia Lactic acidosis RONEN (obstructive sleep apnea) Osteoporosis Pilonidal cyst Atelectasis pulmonary Pulmonary infiltrate Troponin level elevated Left wrist pain Presence of left artificial knee joint Past Medical History: Diagnosis Date CHF (congestive heart failure) (CMS/HCC) Diabetes mellitus (CMS/HCC) Hyperlipidemia Hypertension Family History Problem Relation Name Age of Onset Coronary artery disease Father Heart attack Father Social History Tobacco Use Smoking status: Never Smokeless tobacco: Never Substance Use Topics Alcohol use: Never Drug use: Never Allergies Allergen Reactions Jardiance [Empagliflozin] Rash Amlodipine Other Possible leg swelling Spironolactone Other Hyperkalemia OBJECTIVE Visit Vitals BP 144/90 (BP Location: Left arm, Patient Position: Sitting) Pulse 61 Ht 1.524 m (5') Wt 98.4 kg (217 lb) SpO2 90% BMI 42.38 kg/m??? Smoking Status Never BSA 2.04 m??? Medications: Current Outpatient Medications: allopurinol (Zyloprim) 100 mg tablet, take 1 tablet by mouth IN THE MORNING ( START after FLARE UP RESOLVES ), Disp: , Rfl: aspirin 81 mg chewable tablet, in the morning., Disp: , Rfl: carvedilol (Coreg) 25 mg tablet, Take 25 mg by mouth in the morning and at bedtime., Disp: , Rfl: cholestyramine (Questran) 4 gram packet, Take 1 packet by mouth with breakfast and with evening meal., Disp: , Rfl: furosemide (Lasix) 40 mg tablet, Take 1 tablet (40 mg) by mouth in the morning., Disp: , Rfl: insulin aspart (NovoLOG) 100 unit/mL (3 mL) injection pen, Inject 6 Units under the skin with breakfast, with lunch, with evening meal, and at bedtime., Disp: , Rfl: lisinopril 40 mg tablet, Take 1 tablet (40 mg) by mouth once daily as directed., Disp: 90 tablet, Rfl: 3 magnesium oxide (Mag-Ox) 400 mg tablet, Magnesium, Disp: , Rfl: metFORMIN (Glucophage) 1,000 mg tablet, Take 1,000 mg by mouth with breakfast and with evening meal., Disp: , Rfl: pantoprazole (ProtoNix) 40 mg EC tablet, Take (more content not included)... [facility]08-21-2025 NotePatient is here today for a follow up appointment. Per patient she had cholecystectomy in April patient states she had some problems with getting her gall bladder out due the gall bladder being hard and adhering to her liver. Patient states she has a spot on her kidney that will be biopsied July 30. Patient states she still has leg swelling and they itch when they swell. Patient states she was sent home from the hospital with o2 to use at , patient states she had not been using it. Patient states she did have a sleep study which showed RONEN. Patient denies chest pain. SOB, palpitations/heart racing. Patient complains of fatigue, leg swelling, FINLEY. Review of Systems Constitutional: Positive for malaise/fatigue. Cardiovascular: Positive for dyspnea on exertion and leg swelling.[facility]08-13-2025 Hospital Discharge instructions Patient Education 06/19/2025 10:41:21 Hydronephrosis Hydronephrosis Hydronephrosis is the swelling of one [...] occur when a baby is developing in thewomb. These can include problems in the kidneys or in the tubes that drain urine into the bladder (ureters). In adults, common causes include: Kidney stones. . A tumor or cyst in the abdomen or pelvis. An enlarged prostate gland. Other causes include: Bladder infection. Scar tissue from a previous surgery or injury. A blood clot. Cancer of the prostate, bladder, uterus, ovary, or colon. What are the signs or symptoms? Symptoms of this condition include: Pain or discomfort in your side (flank) or abdomen. Swelling in your abdomen. Nausea and vomiting. Fever. Pain when passing urine. Feelings of urgency when you need to urinate. Urinating more often than normal. In some cases, you may not have any symptoms. How is this diagnosed? This condition may be diagnosed based on: Your symptoms and medical history. A physical exam. Blood and urine tests. Imaging tests, such as an ultrasound, CT scan, or MRI. A procedure to look at your urinary tract and bladder by inserting a scope into the urethra (cystoscopy). How is this treated? Treatment for this condition depends on where the blockage is, how long it has been there, and whatcaused it. The goal of treatment is to remove the blockage. Treatment may include: Antibiotic medicines to treat or prevent infection. A procedure to place a small, thin tube (stent) into a blocked ureter. The stent will keep the ureter open so that urine can drain through it. A nonsurgical procedure that crushes kidney stones with shock waves (extracorporeal shock wave lithotripsy). If kidney failure occurs, treatment may include dialysis or a kidney transplant. Follow these instructions at home: Take yiwm-ghq-bpyvvhk and prescription medicines only as told by your health care provider. If you were prescribed an antibiotic medicine, take it exactly as told by your health care provider. Do not stop taking the antibiotic even if you start to feel better. Rest and return to your normal activities as told by your health care provider. Ask your health care provider what activities are safe for you. Drink enough fluid to keep your urine pale yellow. Keep all follow-up visits. This is important. Contact a health care provider if: You continue to have symptoms after treatment. You develop new symptoms. Your urine becomes cloudy or bloody. You have a fever. Get help right away if: You have severe flank or abdominal pain. You cannot drink fluids without vomiting. Summary Hydronephrosis is the swelling of one or both kidneys due to a blockage that stops urine from flowing out of the body. Hydronephrosis can lead to kidney failure and may become life-threatening if not treated promptly. The goal of treatment is to remove the blockage. It may include a procedure to insert a stent into a blocked ureter, a procedure to break up kidney stones, or taking antibiotic medicines. Follow your health care provider's instructions for taking care of yourself at home, including instructions about drinking fluids, taking medicines, and limiting activities. This information is not intended to replace advice given to you by your health care provider. Make sure you discuss any questions you have with your health care provider. Document Revised: 02/10/2021 Document Reviewed: 02/10/2021 Digital Message Display Patient Education 2023 [employer]. Follow Up Care 01/16/2025 10:12:12 With:Ramsey JUAREZ, RAMIREZ [place], URO Address: When: Unknown [facility] 08-13-2025 NotePatient Education Urology Hydronephrosis Hydronephrosis is the swelling [...] occur when a baby is developing in thewomb. These can include problems in the kidneys [...] how long it has been there, and whatcaused it. The goal of treatment is to [...] Follow these instructions at home: ??? Take nhjo-kcj-wwvuywb and prescription medicines only as told by your health care provider. ??? If you were prescribed an antibiotic medicine, take it exactly as told by your health care provider. Do not stop taking the antibiotic even if you start to feel better. ??? Rest and return to your normal activities as told by your health care provider. Ask your healthcare provider what activities are safe for you. [...] provider. Document Revised: 02/10/2021 Document Reviewed: 02/10/2021 Digital Message Display Patient Education ? 2023 [employer].[facility] 06-18-2025 Miscellaneous Notes* Telephone Encounter - Wilma Aguirre - 06/18/2025 8:53 AM EDT 06/17 Order received Called PT LM to schedule sleep study. Pap order and 06/17 Nina notes in [facility] Possible hypoxemia on PSG Please comment on arrhythmia [facility] Note* Telephone Encounter - Wilma Aguirre - 06/18/2025 8:53 AM EDT 06/17 Order received Called PT LM to schedule sleep study. Pap order and 06/17 Nina notes in epic Possible hypoxemia on PSG Please comment on arrhythmia [facility]08-11-2025 History of Present illness Narrative* Marie Gray MD - 06/17/2025 10:00 AM EDT Images from the original note were not included. Reason for visit: positive sleep study, review results and initiate treatment HISTORY OF PRESENT ILLNESS: Unsure why had sleep study, says she guesses she needed it. No bed partner. She has been told she snores in past. Not sleepy during the day. PSG 05/2025: AHI 88, oxygen cathy 85% No sleepiness while driving Sleep Questionnaire 06/17/2025 10:03 AM EDT - Filed by Patient Have you previously had a sleep study? No Do you have a partner (girlfriend/boyfriend, spouse, etc) ? Yes Do you or your bed partner currently notice any of the following symptoms? Excessive daytime sleepiness No Frequent snoring Yes Snore yourself awake from sleep No Witnessed apneas (holding breath during sleep) No Waking up choking, gasping or short of breath No Excessively sweating overnight No Waking up with dry mouth or sore throat No Morning headaches No Waking up to urinate at night Yes Nighttime heartburn interfering with sleep No Frequent disturbing dreams or nightmares No Sleep walking No Unusual behaviors during sleep No Injury to yourself or partner during sleep No Imagine seeing or hearing things that are not real as you fall asleep or wake up No Momentary inability to move body (paralysis) as falling askeep or waking up No Insomnia (difficulty falling asleep or staying asleep) No Teeth clenching/grinding No Waking up disoriented / confused No Do you currently receive medical equipment for sleep conditions? No Have you had any other treatments for sleep apnea? No How likely are you to doze off or fall asleep in the following situations, in contrast to feeling just tired? Sitting and reading slight chance of dozing Watching TV slight chance of dozing Sitting inactive in a public place (e.g. a theater or a meeting) slight chance of dozing As a passenger in a car for an hour without a break slight chance of dozing Lying down to rest in the afternoon when circumstances permit slight chance of dozing Sitting and talking to someone no chance of dozing Sitting quietly after a lunch without alcohol no chance of dozing In a car, while stopped for a few minutes in traffic no chance of dozing Weekday Sleep Schedule What time do you get into bed? 11:00 PM What time do you try to go to sleep? 11:00 PM Time it takes to fall asleep (minutes) 1 What time do you wake up? 6:29 AM What time do you get out of bed? 7:00 AM Weekend Sleep Schedule What time do you get into bed? 11:00 PM What time do you try to go to sleep? 11:30 PM Time it takes to fall asleep (minutes) 30 What time do you wake up weekends? 7:00 AM What time do you get out of bed? 7:00 AM Do you watch TV, read or use phone/computer in bed? Yes Number of djbzvm-mg-uxn-night awakenings per night? 1 Cause of awakenings (if applicable): Restroom Total average number of hours of sleep per night: 7 How many naps do you take a day and for how long? One Do you feel refreshed after your naps? Yes Do you do shift work or work overnights? No PAST MEDICAL HISTORY Past Medical History: Diagnosis Date Acute back pain with sciatica, right Arthritis Diabetes mellitus type II, controlled ([facility]) Gout 04/2025 HTN (hypertension) Hyperlipidemia Denies h/o arrhythmia, CVA, [place] PAST SURGICAL HISTORY Past Surgical History: Procedure Laterality Date CARPAL TUNNEL RELEASE Right CATARACT EXTRACTION, BILATERAL CYST REMOVAL Tailbone LAPAROSCOPIC CHOLECYSTECTOMY 04/10/2025 Celeste. Renée LYMPH NODE BIOPSY Left ORBITAL FRACTURE SURGERY Left REPLACEMENT TOTAL KNEE Left 10/03/2023 SHOULDER SURGERY Left Rotator Cuff SKIN CANCER EXCISION Right Right Arm TONSILLECTOMY FAMILY HISTORY Family History Problem Relation Age of Onset Stroke Mother at age99 Heart disease Father Leukemia Father No Known Problems Sister Stroke Maternal Grandfather 90 Breast cancer Neg Hx MEDICATIONS Current Outpatient Medications Medication Instructions allopurinoL (ZYLOPRIM) 100 mg, oral aspirin (ADULT LOW DOSE ASPIRIN) 81 mg blood-glucose sensor (DEXCOM G7 SENSOR) device 1 Unit, miscellaneous, Every 10 days carvediloL (COREG) 25 mg, oral, 2 times daily cholestyramine (QUESTRAN) 4 g packet mix 1 packed DIRECTED and take BY MOUTH DAILY clobetasoL (TEMOVATE) 0.05 % ointment 1 Application, topical, 2 times daily furosemide (LASIX) 40 mg, oral, Daily insulin aspart U-100 (NOVOLOG FLEXPEN U-100 INSULIN) 6 Units, subcutaneous, 3 times daily with meals insulin degludec (TRESIBA FLEXTOUCH U-100) 50 Units, subcutaneous, Nightly lisinopriL (PRINIVIL,ZESTRIL) 40 mg, oral, Daily magnesium oxide 400 mg magnesium tablet Magnesium metFORMIN (GLUCOPHAGE) 1,000 mg, oral, 2 times daily with meals pantoprazole (PROTONIX) 40 mg, 2 times daily before meals rosuvastatin (CRESTOR) 10 mg, oral, Every morning MEDICATION ALLERGIES: Allergies Allergen Reactions Amlodipine Other (See Comments) Possible leg swelling Spironolactone Other (See Comments) Hyperkalemia SOCIAL HISTORY Social History Tobacco Use Smoking status: Never Smokeless tobacco: Never Vaping Use Vaping status: Never Used Substance Use Topics Alcohol use: Not Currently Drug use: Never Estimated body mass index is 40.74 kg/m as calculated from the following: Height as of 05/14/25: 152.4 cm (5'). Weight as of 05/14/25: 94.6 kg (208 lb 9.6 oz). Current weight: 208 lb PHYSICAL EXAM: Physical exam: General: no acute distress Psych: appropriate mood and affect DATA: Sleep studies Polysomnogram on 2025-05-07 (AHI (3%)=88.1 events/hour; AHI (4%)=22.3 events/hour; Cathy SpO2=85.0%; Qmphdw=888.0 lbs; BMI=40.6 kg/m2) DIAGNOSIS: Obstructive Sleep Apnea (G47.33) COMMENTS: This baseline polysomnogram demonstrates severe obstructive sleep apnea. Of note, there was no REM sleep. The patient's sleep efficiency on the diagnostic night was reduced at 66.1% due to prolonged wake after sleep onset. Sleep was highly fragmented. The ocular care technician noted possible hypoxemia versus malfunction of the pulse oximeter with baseline oxygen saturations maintained 87-88%in sleep at the beginning of the study for 8-9 minutes and intermittently thereafter but in the setting of artifact in the pulse oximeter channel; clinical correlation is advised as to any history suggestive for cardio- pulmonary disease. There was no sleep related hypoventilation on TCO2 monitoring. The limited EKG was abnormal with intermittent bradycardia, frequent PACs, PVCs, and compensatory pauses. TREATMENT CONSIDERATIONS: A CPAP titration study is recommended at this time. TTE 02/2025: LVEF 60%, RVSP 30 mmHg ESS - see HPI, 03/3005/07/2025 8:22 PM 04/24/2025 11:00 AM [place] Sleepiness Scale Sitting and Reading 0 0 Watching TV 2 3 Sitting inactive in a public place (theater, meeting) 0 0 As a passenger in a car for an hour without a break 0 1 Lying down in the afternoon to rest 3 2 Sitting and talking to someone 0 0 Sitting quietly after lunch (without alcohol) 0 3 In a car, while stopped for a few minutes in traffic 0 0 Total 5 9 Labs HCO3 04/2025: 30 mmol/L Lab Results Component Value Date TSH 1.00 07/16/2024 ASSESSMENT & PLAN Diagnoses and all orders for this visit: RONEN (obstructive sleep apnea) - Polysomnography 4 or more parameters with PAP titration; Future Class 3 severe obesity due to excess calories with serious comorbidity and body mass index (BMI) of40.0 to 44.9 in adult ([facility]) - Polysomnography 4 or more parameters with PAP titration; Future Essential hypertension, benign - Polysomnography 4 or more parameters with PAP titration; Future Nocturia - Discussed the pathophysiology and treatment of sleep apnea - Education as described below - Sleep study results discussed - Given low SPO2 on study, unclear if artifact, I will order titration - The patient was encouraged to use the portal or to call me at any time with any further questionsor concerns - Return to clinic in 3 months or sooner if health issues ensue EDUCATION Pathophysiology of RONEN was explained. Health risks associated with untreated RONEN were discussed (cardiopulmonary, cerebrovascular, and anesthesia/sedative-related). Discussed that above listed medical diagnoses will improve with adequate treatment of obstructive sleep apnea. Risks associated with excessive daytime sleepiness, particularly while driving/operating machinery were discussed. The patient was instructed to avoid such activities if feeling sleepy, and to stop the activity if sleepiness occurs (head well puller at the next safe opportunity if driving). RONEN treatment options were discussed. CPAP is the most predictably effective treatment. Discussed the important relationship between overweight/obesity worsening airway obstruction and importance of weight loss to improve sleep apnea severity. If indicated and prescribed, CPAP must be used every night, all night for full benefits. It may take several weeks until fully accustomed to using the treatment, and before benefits (improved sleep quality and daytime alertness) are noticeable. Compliance criteria per insurance requires a visit with your provider between 31-90 days from the date of your CPAP machine marker. You are required to have a minimum of 4 hours of CPAP utilization per night for at least 70% of 30 consecutive nights. Potential problems with CPAP were reviewed Patient notified of 30 day mask guarantee. Notify DME within 14 days if does not like mask, entitled to one free mask switch. After 30 days, he is responsible for cost of mask switch. Interim measures to reduce obstructive sleep apnea severity were recommended (avoidance of the supine position and elevation of the upper body and during sleep). If a sleep study is ordered and you have not heard from the scheduling team in 14 days, please callthe sleep lab at [phone] For scheduling of other images, please contact central scheduling at [phone] For any sleep clinic concerns, please contact [phone] Please be aware of the recent recalls from all mask manufacturers regarding any masks with magneticfasteners. The use of a mask with a magnetic fastener is contraindicated should the patient or any close contact/ bed partner have any of the following: metallic aneurysm hemostatic clips in the head; metallic splinters in eye(s) following a penetrating eye injury; active medical implants that interact with magnets (i.e., pacemakers, implantable cardioverter defibrillators (ICD), neurostimulators, cerebrospinal fluid (CSF) shunts, insulin/infusion pumps); metallic implants/objects containing ferromagnetic material (i.e., aneurysm clips/flow disruption devices, embolic coils, stents, valves, electrodes, implants to restore hearing or balance with implanted magnets, ocular implants, metallic splinters in the eye). More information can be found by visiting [email or web address]. Please be sure to register your Respironics PAP machine due to recent PAP recall There is a current nationwide shortage of PAP machines due to the chip shortage. DME fulfillment times range from 2-6 months. Please refer to the above documentation for further details. Marie Gray M.D. Video Visit via Real-time Synchronous Audiovisual Provider Location: [facility] [address] [facility] [address] Patient Location: Patient's home Video Visit Consent Statement: I discussed risks, benefits, and alternatives of a real-time synchronous audiovisual consultation with the patient (and any accompanying persons) including the risks that the patient's personal health details and medical records will be discussed over real-time, synchronous, interactive video/audio/telecommunication technology, the visit will not be recorded withoutthe express consent of both the provider and the patient, and that there are some limitations compared to [id number] evaluations. The patient consented to the presence of additional virtual and/or in-person participants. We elected to proceed. documented in this encounterWilson [facility]08-[facility] Radiology Diagnostic study [facility] [place] [address] [place] [address] Ultrasound Report Signed Patient: Tosha Mcneal MR#: [id number] : 1950 Acct:[id number] Age/Sex: 74 / F ADM Date: 5 Loc: Room: Type: [facility] Attending Dr: Shavon Mustafa MD Ordering Provider: Shavon Mustafa MD Date of Service: 06/11/25 US/US renal BI: N13.30,Z87.442 Copies to: Shavon Mustafa MD~ BILATERAL RENAL AND BLADDER ULTRASOUND CLINICAL HISTORY: Hydroureteronephrosis. COMPARISON: CT abdomen and pelvis 12/21/2024 FINDINGS: Estimation of renal size is approximately 12.5 cm on the right and 10.87 cm on the left. Mild right-sided hydronephrosis. No shadowing stone or mass. The urinary bladder is partially distended with a volume of 302.97 ml. No shadowing stone or focal lesion. No significant postvoid residual. US/US renal BI IMPRESSION: MILD RIGHT-SIDED HYDRONEPHROSIS. Impression dictated by: Miki Kruse Jr., D.OPablo 06/11/2025 1:21 PM Dictation Location: [place] [address] Tech: Cyndi Brown Transcribed By: SRUTHI 06/11/25 1321 Dictated By: Miki Kruse Jr, DO 06/11/25 1319 Signed By: 06/11/25 [address]14-2025 Miscellaneous Notes* Telephone Encounter - Dee Dee Horton MD - 05/20/2025 11:38 AM EDT Images from the original note were not included. PSG ordered by PCP Wild Centeno DO - please see results and abnormal EKG PPG read/follow Kimber, please offer new patient appointment for RONEN, thanks! Polysomnogram on 2025-05-07 (AHI (3%)=88.1 events/hour; AHI (4%)=22.3 events/hour; Cathy SpO2=85.0%; Wzxmtq=466.0 lbs; BMI=40.6 kg/m2) DIAGNOSIS: Obstructive Sleep Apnea (G47.33) COMMENTS: This baseline polysomnogram demonstrates severe obstructive sleep apnea. Of note, there was no REM sleep. The patient's sleep efficiency on the diagnostic night was reduced at 66.1% due to prolonged wake after sleep onset. Sleep was highly fragmented. The ocular care technician noted possible hypoxemia versus malfunction of the pulse oximeter with baseline oxygen saturations maintained 87-88%in sleep at the beginning of the study for 8-9 minutes and intermittently thereafter but in the setting of artifact in the pulse oximeter channel; clinical correlation is advised as to any history suggestive for cardio- pulmonary disease. There was no sleep related hypoventilation on TCO2 monitoring. The limited EKG was abnormal with intermittent bradycardia, frequent PACs, PVCs, and compensatory pauses. TREATMENT CONSIDERATIONS: A CPAP titration study is recommended at this time. * Telephone Encounter - Kimber Bansal - 05/20/2025 11:38 AM EDT Called pt and scheduled INTELLECTUAL PROPERTY MANAGER vv with GENNA 06/17/25. Pt headed out of town in near future, had to wait until her return. No other prev ss. Wakes up. Assigned NPQ. Pt encouraged to sleep on sides and/or partially elevated in mean time. documented in this encounterWilson Memorial Hospital07-14-2025 Telephone encounter Note* Telephone Encounter - Dee Dee Horton MD - 05/20/2025 11:38 AM EDT Images from the original note were not included. PSG ordered by PCP Wild Centeno DO - please see results and abnormal EKG PPG read/follow Kimber, please offer new patient appointment for RONEN, thanks! Polysomnogram on 2025-05-07 (AHI (3%)=88.1 events/hour; AHI (4%)=22.3 events/hour; Cathy SpO2=85.0%; Cafcpd=371.0 lbs; BMI=40.6 kg/m2) DIAGNOSIS: Obstructive Sleep Apnea (G47.33) COMMENTS: This baseline polysomnogram demonstrates severe obstructive sleep apnea. Of note, there was no REM sleep. The patient's sleep efficiency on the diagnostic night was reduced at 66.1% due to prolonged wake after sleep onset. Sleep was highly fragmented. The ocular care technician noted possible hypoxemia versus malfunction of the pulse oximeter with baseline oxygen saturations maintained 87-88%in sleep at the beginning of the study for 8-9 minutes and intermittently thereafter but in the setting of artifact in the pulse oximeter channel; clinical correlation is advised as to any history suggestive for cardio- pulmonary disease. There was no sleep related hypoventilation on TCO2 monitoring. The limited EKG was abnormal with intermittent bradycardia, frequent PACs, PVCs, and compensatory pauses. TREATMENT CONSIDERATIONS: A CPAP titration study is recommended at this time. [employer] Phone: [phone] Telephone encounter Note* Telephone Encounter - Kimber Bansal - 05/20/2025 11:38 AM EDT Called pt and scheduled INTELLECTUAL PROPERTY MANAGER vv with GENNA 06/17/25. Pt headed out of town in near future, had to wait until her return. No other prev ss. Wakes up. Assigned NPQ. Pt encouraged to sleep on sides and/or partially elevated in mean time. [facility]07-[facility] History of Present illness Narrative* Wild Centeno, DO - 05/14/2025 2:00 PM EDT Subjective Patient ID: Tosha Mcneal is a 74 y.o. female. Alpa presents today for follow-up. She just does not feel well overall. She did have gout in her foot last week and did a course of prednisone and it is much better. She is having stomach issues with gas, bloating, cramping and diarrhea. She has 2-3 diarrhea stools a day. She does not have a fever. Appetite is fair to poor. She is not eating much. The swelling in her feet is much better. She does not wear compression hose because her has a hard time getting them off of her. She does not have any chest pain or shortness a breath. She does not have much energy. She just lays around the house most of the day but does do activities of daily living. She does swim at her son's house who lives nearby. She has not heard the results of her sleep study yet. She wonders if I have the results. She would also like a renewal of her handicap parking placard. She uses it when she has to walk a far distance like it baseball games. She can not walk greater than 200 ft without stopping to rest. If she can park up close she does not use it then and does not abuse it. The following portions of the patient's history were reviewed and updated as appropriate: allergies, current medications, past family history, past medical history, past social history, past surgicalhistory, problem list, and medication reconciliation was completed including current medication andpost discharge medication. Review of Systems Constitutional: Positive for fatigue. Respiratory: Negative. Cardiovascular: Negative. Gastrointestinal: Positive for abdominal pain and diarrhea. Psychiatric/Behavioral: Negative. Objective Physical Exam Vitals reviewed. Constitutional: General: She is not in acute distress. Appearance: She is not ill-appearing. HENT: Head: Normocephalic. Eyes: General: No scleral icterus. Extraocular Movements: Extraocular movements intact. Conjunctiva/sclera: Conjunctivae normal. Cardiovascular: Rate and Rhythm: Normal rate and regular rhythm. Pulses: Normal pulses. Heart sounds: Normal heart sounds. Pulmonary: Effort: Pulmonary effort is normal. No respiratory distress. Breath sounds: Normal breath sounds. No wheezing, rhonchi or rales. Musculoskeletal: Cervical back: Neck supple. Right lower leg: Edema (Trace) present. Left lower leg: Edema (Trace) present. Neurological: General: No focal deficit present. Mental Status: She is alert and oriented to person, place, and time. Psychiatric: Attention and Perception: Attention normal. Mood and Affect: Mood and affect normal. Speech: Speech normal. Behavior: Behavior normal. Behavior is cooperative. Thought Content: Thought content normal. Cognition and Memory: Cognition normal. Judgment: Judgment normal. Assessment/Plan Tosha was seen today for follow-up. Diagnoses and all orders for this visit: History of cholecystectomy Clinically she is improving from her cholecystectomy. Some of her symptoms maybe due to the sequelae of her cholecystectomy. We will try Questran 1 scoop daily. She can increase the dose if she needsto up to 4 scoops a day. Diarrhea, unspecified type As above Morbid obesity (CMS-HCC) She is obese. She has lost weight since her surgery but it was mostly fluid according to her. She is down to 208 lb from 219 lb last year. Overall that is beneficial for her but she would benefit from more weight loss. We did discuss diet and exercise today.Patient noted to have elevated BMI and the following intervention(s) were applied: encouragement to exercise and prescribed diet education. Lumbar spondylosis X-ray onto in 2016 showed severe facet arthropathy. I will renew her handicap parking placard for 5years. She can not walk greater than 200 ft without stopping to rest. Other orders - cholestyramine 4 gram powder; Take 4 g by mouth in the morning. documented in this encounterUniversity [facility] CenterSh[facility]06-27-2025 Miscellaneous Notes* Telephone Encounter - Genny Valdovinos - 05/03/2025 1:32 PM EDT Contract: [address] [place] [address] RE Critical Results * Telephone Encounter - Genny Valdovinos - 05/03/2025 1:32 PM EDT Contract: 198 Called Lucy Ansari and SCARLETT to call [facility] * Telephone Encounter - Genny Valdovinos - 05/03/2025 1:32 PM EDT Contract: 198 Called Lucy rendon LM to call [facility] * Telephone Encounter - Codie Schneider - 05/03/2025 1:32 PM EDT Lucy Ansari called back and was connected to ultrasound. documented in this encounterWilson [facility] Hospital06-27-2025 Telephone encounter Note* Telephone Encounter - Genny Valdovinos - 05/03/2025 1:32 PM EDT Contract: [facility] RE Critical Results [facility]06-27-2025 Telephone encounter Note* Telephone Encounter - Genny Valdovinos - 05/03/2025 1:32 PM EDT Contract: 198 Called Lucy Ansari and SCARLETT to call [facility]06-27-2025 Telephone encounter Note* Telephone Encounter - Genny Valdovinos - 05/03/2025 1:32 PM EDT Contract: 198 Called Lucy rendon LM to call [facility]06-27-2025 Telephone encounter Note* Telephone Encounter - Codie Schneider - 05/03/2025 1:32 PM EDT Lucy Ansari called back and was connected to ultrasound. Ikanos [id number] History of Present illness Narrative* Sarah Ansari, BOX OFFICE CLERK-MASTERCAM PROGRAMMER - 05/03/2025 9:20 AM EDT [address] [place] [address] [place] [place] [address] Patient: Tosha Mcneal Date of : 1950 Encounter Date: 05/03/2025 History of Present Illness: The patient is a 74 y.o. female, an established patient, and is here for Chief Complaint Patient presents with Follow-up From last visit. Feels like she has gout in the left foot. . HPI Patient is status post cholecystectomy through [facility] on April 11, 2025. She was discharged from hospital on April 13 and patient states she is just feeling poor overall . She has decreased appetite, loose stools in the morning 2-3, low energy and body aches. In the past 1 week her left foot has become swollen and painful and she feels she has a gout attack . She has had gout in the past and t his has been how it presents. Her blood sugars at home with her CGM have been averaging in the 170sher fasting blood glucose this morning was 125. Patient states she has just been laying around the house and not getting up and walking much because she has no energy and she feels poor. She had a lot of difficulty getting on the scale for a weight this morning and needed 2 person assist with standing by as her left foot was very painful. Patient denies any chest pain or significant shortness of breath or abdominal pain or incisional pain. She is following her lifting precautions as given by surgeon. Problem List Items Addressed This Visit Digestive Morbid obesity (CMS-HCC) Endocrine Type 2 diabetes mellitus ([facility]) Other Visit Diagnoses S/P cholecystectomy - Primary Relevant Orders Comprehensive metabolic panel CBC auto differential Localized swelling of left foot Relevant Orders Vas venous duplex lwr single left Irregular heart beat Relevant Orders POCT EKG (Completed) Other post infection and related fatigue syndromes Abnormal CBC Relevant Orders CBC auto differential Excessive daytime sleepiness Past Medical, Family, and Social History Update: The following portions of the patient's history were reviewed and updated as appropriate: allergies, current medications, past family history, past medical history, past social history, past surgicalhistory and problem list. Past Medical History: Diagnosis Date Acute back pain with sciatica, right Arthritis Hyperlipidemia Past Surgical History: Procedure Laterality Date CARPAL TUNNEL RELEASE Right CATARACT EXTRACTION, BILATERAL CYST REMOVAL Tailbone LAPAROSCOPIC CHOLECYSTECTOMY 04/10/2025 DSr. Cline LYMPH NODE BIOPSY Left ORBITAL FRACTURE SURGERY Left REPLACEMENT TOTAL KNEE Left 10/03/2023 SHOULDER SURGERY Left Rotator Cuff SKIN CANCER EXCISION Right Right Arm TONSILLECTOMY Current Outpatient Medications Medication Sig Dispense Refill allopurinoL (ZYLOPRIM) 100 mg tablet TAKE 1 TABLET BY MOUTH IN THE MORNING 30 tablet 5 aspirin (ADULT LOW DOSE ASPIRIN) 81 mg blood-glucose sensor (DEXCOM G7 SENSOR) device 1 Unit by miscellaneous route every 10 days. 3 each 5 carvediloL (COREG) 25 mg tablet Take 1 tablet (25 mg total) by mouth in the morning and 1 tablet (25 mg total) before bedtime. 180 tablet 3 clobetasoL (TEMOVATE) 0.05 % ointment Apply 1 Application topically in the morning and 1 Application before bedtime 15 g 0 furosemide (LASIX) 40 mg tablet Take 1 tablet (40 mg total) by mouth daily. insulin aspart U-100 (NovoLOG Flexpen U-100 Insulin) 100 unit/mL (3 mL) insulin pen Inject 6 Units under the skin in the morning and 6 Units at noon and 6 Units in the evening. Inject with meals. 15 mL 1 insulin degludec (TRESIBA FLEXTOUCH U-100) 100 unit/mL (3 mL) insulin pen Inject 50 Units under theskin nightly. 45 mL 1 lisinopriL (PRINIVIL,ZESTRIL) 40 mg tablet Take 1 tablet (40 mg total) by mouth in the morning. 90 tablet 1 magnesium oxide 400 mg magnesium tablet Magnesium 90 tablet 1 metFORMIN (GLUCOPHAGE) 1000 mg tablet Take 1 tablet (1,000 mg total) by mouth in the morning and 1 tablet (1,000 mg total) in the evening. Take with meals. 180 tablet 3 pantoprazole (PROTONIX) 40 mg EC tablet Take 1 tablet (40 mg total) by mouth in the morning and 1 tablet (40 mg total) in the evening. Take before meals. rosuvastatin (CRESTOR) 10 mg tablet Take 1 tablet (10 mg total) by mouth every morning. 90 tablet 1 furosemide (LASIX) 20 mg tablet Lasix 20mg nightly for 5 days. Should continue the 40mg in am. 5 tablet 0 predniSONE (DELTASONE) 20 mg tablet Take 1 tablet (20 mg total) by mouth in the morning and 1 tablet (20 mg total) before bedtime. Do all this for 5 days. 10 tablet 0 No current facility-administered medications for this visit. (All medications reviewed and updated by provider since last office visit or hospitalization) Allergies: Amlodipine and Spironolactone Tobacco History: Social History Tobacco Use Smoking Status Never Smokeless Tobacco Never (If patient a smoker, smoking cessation counseling offered) Social History: Social History Substance and Sexual Activity Alcohol Use Not Currently Review of Systems: Review of Systems Constitutional: Positive for activity change, appetite change, fatigue and unexpected weight change(9lbs lost in 22 days post op jt). Respiratory: Negative. Cardiovascular: Positive for leg swelling. Negative for chest pain and palpitations. Gastrointestinal: Positive for diarrhea. Negative for abdominal distention, abdominal pain, blood in stool, constipation, nausea, rectal pain and vomiting. Musculoskeletal: Negative. Neurological: Negative. Physical Exam: BP 132/58 (BP Site: Left Arm, BP Postition: Sitting, BP CUFF SIZE: M (9-13 inches)) Pulse 71 Temp 37.5 C (99.5 F) (Oral) Resp 20 Ht 152.4 cm (5') Wt 94.3 kg (207 lb 12.8 oz) SpO2 96% BMI 40.58 kg/m Physical Exam Vitals reviewed. Flat Spring Assembler present: spouse present. Constitutional: General: She is not in acute distress. Appearance: Normal appearance. She is obese. She is not toxic-appearing. HENT: Head: Normocephalic and atraumatic. Mouth/Throat: Mouth: Mucous membranes are moist. Eyes: General: No scleral icterus. Pupils: Pupils are equal, round, and reactive to light. Cardiovascular: Heart sounds: Murmur (2/6 systolic LUSB) heard. Comments: Irregularly irregular Pulmonary: Effort: Pulmonary effort is normal. Breath sounds: Normal breath sounds. Abdominal: General: Bowel sounds are normal. Palpations: Abdomen is soft. Musculoskeletal: General: Swelling and tenderness (left foot/ankle) present. Right lower leg: Edema (trace kraft to foot) present. Left lower leg: Edema (ankle to foot with +2 pitting edema, no redness/warmth to ankle or foot) present. Skin: General: Skin is warm. Capillary Refill: Capillary refill takes less than 2 seconds. Neurological: General: No focal deficit present. Mental Status: She is alert and oriented to person, place, and time. Gait: Gait abnormal (using wheelchair). Psychiatric: Mood and Affect: Mood normal. Behavior: Behavior normal. Assessment and Plan: Tosha was seen today for follow-up. Diagnoses and all orders for this visit: S/P cholecystectomy - Comprehensive metabolic panel; Future - CBC auto differential; Future - Comprehensive metabolic panel - CBC auto differential Type 2 diabetes mellitus with stage 2 chronic kidney disease, with long-term current use of insulin([facility]) Localized swelling of left foot - Vas venous duplex lwr single left; Future Irregular heart beat - POCT EKG Other post infection and related fatigue syndromes Abnormal CBC - CBC auto differential; Future - CBC auto differential Morbid obesity (CMS-HCC) Excessive daytime sleepiness Other orders - predniSONE (DELTASONE) 20 mg tablet; Take 1 tablet (20 mg total) by mouth in the morning and 1 tablet (20 mg total) before bedtime. Do all this for 5 days. - furosemide (LASIX) 20 mg tablet; Lasix 20mg nightly for 5 days. Should continue the 40mg in am. Follow-up: Re-check CBC, CMP as pt is feeling fatigue and malaise since surgery that is not greatly improving. Check STAT LE venous US to r/o DVT post op due to swelling in left foot. Called [facility] and she was scheduled for 1pm today with stat read. 1 wk Eliquis sample was given to her spouse and directed to start only if called by provider. She will add 20mg lasix in evening for 5 days in addition to her 40mgevery am and elevate LE above heart for 20min TID. She may start the prednisone to help with her nicol t pain as differential includes gout. Her DMII is unchanged per pt - stating CGM has BG avg 170s, no hypoglycemia. EKG unremarkable for a fib today, final interpretation per Dr. Centeno. Patient noted to have elevated BMI and the following intervention(s) were applied: prescribed diet education. High fiber diet was reinforced from last visit in after visit summary. Pt was encouraged to proceed with inpatient sleep study as her O2 levels were low at night in the hospital and she is on nocturnal O2 and likely has sleep apnea according to high STOP BANG score at last appt. This plan was collaborated with Dr. Centeno. TANNER JIM APRN-CNP 05/03/25 1038 documented in this encounterWilson [facility] Hospital06-24-2025 Miscellaneous Notes* Telephone Encounter - Kimberly Carr - 04/30/2025 8:53 AM EDT 04/29 PSG order received Scheduled PSG at [facility] on 05/07/25 Emailed confirmation Med A & B Chatted pre auth for ins add PSG Order and 04/24/25 [place] Epic Notes * Telephone Encounter - Any Forte - 04/30/2025 8:53 AM EDT AUTH/START PSG([id number])/NPR Medicare A&B primary documented in this encounterWilson Memorial Hospital06-24-2025 Telephone encounter Note* Telephone Encounter - Kimberly Carr - 04/30/2025 8:53 AM EDT 04/29 PSG order received Scheduled PSG at [facility] on 05/07/25 Emailed confirmation Med A & B Chatted pre auth for ins add PSG Order and 04/24/25 [facility] Telephone encounter Note* Telephone Encounter - Any Forte - 04/30/2025 8:53 AM EDT AUTH/START PSG([id number])/NPR Medicare A&B primary [facility]06-[facility]-20[facility] Miscellaneous Notes* Telephone Encounter - Lisa Camarillo - 04/25/2025 2:45 PM EDT 04/24 Order received Scheduled HST at [facility] on :30 pm Confirmation emailed Carlita Horton for approval Chat to pre auth Medicare Part A & B MMO Traditional HST Order and 04/24/25 Myron Centeno Epic Notes documented in this encounterWilson Memorial Hospital06-19-2025 Telephone encounter Note* Telephone Encounter - Lisa Camarillo - 04/25/2025 2:45 PM EDT 04/24 Order received Scheduled HST at [facility] on 7:30 pm Confirmation emailed Carlita Horton for approval Chat to pre auth Medicare Part A & B MMO Traditional HST Order and 04/24/25 Myron Centeno Epic Notes [facility]06-[facility]-2025 History of Present illness Narrative* Wild Centeno, DO - 04/24/2025 11:45 AM EDT Subjective Patient ID: Tosha Mcneal is a 74 y.o. female. The patient is here today for discharge follow up from hospital. Transition of Care Med Rec completed? Yes Discharged medications: Medications have been reviewed and reconciled with the most recent facilitydischarge document. Alpa presents today for transition of care visit. She had her gallbladder removed at [facility] in [place]. She was doing okay. She has had diarrhea mostly in the morning since the surgery. She takes Imodium as needed. She was wondering what foods might be causing that. There was no bloody stools or melena. She is using the insulin. She takes Tresiba 50 units daily and pre meal insulin of 6 units. She was having a downward trend on her blood sugars at night so she is now taking the Tresiba in the morning. She wonders if that is okay. She was given oxygen to use at home upon release from the hospital. They kept her several extra days because her oxygen level would drop. They told her to follow up here for that. She has noticed increased fatigue. She thinks she probably has sleep apnea. She has never been tested. The following portions of the patient's history were reviewed and updated as appropriate: allergies, current medications, past family history, past medical history, past social history, past surgicalhistory, problem list, and medication reconciliation was completed including current medication andpost discharge medication. Review of Systems Constitutional: Positive for fatigue. HENT: Negative. Respiratory: Negative. Cardiovascular: Positive for leg swelling. Gastrointestinal: Positive for abdominal pain and diarrhea. Objective Physical Exam Vitals reviewed. Exam conducted with a pantry attendant present (). Constitutional: General: She is not in acute distress. Appearance: She is morbidly obese. She is not ill-appearing. HENT: Head: Normocephalic. Cardiovascular: Rate and Rhythm: Normal rate and regular rhythm. Pulses: Normal pulses. Heart sounds: Normal heart sounds. No murmur heard. Pulmonary: Effort: Pulmonary effort is normal. No respiratory distress. Breath sounds: Normal breath sounds. No wheezing, rhonchi or rales. Abdominal: General: Bowel sounds are normal. There is no distension. Palpations: Abdomen is soft. Tenderness: There is no abdominal tenderness. There is no guarding or rebound. Hernia: No hernia is present. Musculoskeletal: Cervical back: Neck supple. No rigidity. Right lower le+ Pitting Edema present. Left lower le+ Pitting Edema present. Neurological: General: No focal deficit present. Mental Status: She is alert and oriented to person, place, and time. Psychiatric: Mood and Affect: Mood normal. Behavior: Behavior normal. Thought Content: Thought content normal. Judgment: Judgment normal. Assessment/Plan Tosha was seen today for tcm- gallbladder surgery.- [facility]. Diagnoses and all orders for this visit: S/P laparoscopic cholecystectomy She is slowly improving. She does have diarrhea which maybe a complication of the surgery. I suggested a bile acid sequestrant powder to help with that but she declined. She can use Imodium as needed. Low-fat, high-fiber diet discussed. Morbid obesity ([facility]) She is morbidly obese. She would benefit from weight loss. Patient noted to have elevated BMI and the following intervention(s) were applied: encouragement toexercise and prescribed diet education. Hypersomnia - Home sleep study; Future She has hypersomnia. She scored high on the STOP BANG and borderline on the [place] sleep scale. Type 2 diabetes mellitus with stage 2 chronic kidney disease, with long-term current use of insulin([facility]) - insulin degludec (TRESIBA FLEXTOUCH U-100) 100 unit/mL (3 mL) insulin pen; Inject 50 Units under the skin nightly. Okay to use Tresiba in the morning and continue pre meal insulin 3 times a day. Physical deconditioning Her oxygen is 94% here today on room air. She probably does not need it during the day but we did discuss she might need it at nighttime if she has sleep apnea so we should try to see if she has sleep apnea and then treat it. Screening for depression Other orders - Discontinue: insulin degludec (TRESIBA FLEXTOUCH U-100) 100 unit/mL (3 mL) insulin pen; Inject 50Units under the skin nightly. documented in this encounterWilson Memorial Hospital06-09-2025 Miscellaneous Notes* Telephone Encounter - Chaya Doll RN - 04/15/2025 2:07 PM EDT Images from the original note were not included. Transition of Care (*required) *Additional Questions/Concerns Requiring PCP Follow-Up: Patient declines PCP TCV at this time. She is planning to follow up with surgery for post op visit as scheduled. Denies needs for PCP at this time. This documentation is being used for Transition of Care purposes: Yes Goal: Patient will demonstrate a safe transition from hospital to home. Diagnosis on Discharge: Acute cholecystitis due to biliary calculus (Primary Dx); Cholecystitis Discharge Specialty: Other *Name of Discharging Facility: [facility] Date of Facility Discharge: 04.10.25 - 04.13.25 Date of Interactive Contact and Name of Welding Machine Operator Helper Gas: 0.3.23 @ 3012 - Spoke with patient *Medication Review Completed: Yes Confirms she has medications and denies needs or questions at this time. Medication Reconciliation Questions/Concerns: None *Follow Up Appointments with Providers: Primary: Wild Centeno DO 06.24.25 Specialty: Gen Surg - 04.23.25 Specialty: Specialty: Review of Pending Lab/Diagnostic Tests and Plan for Completion: None Assessment and Support of Treatment Regimen Adherence and Medication Management: Patient states she is doing well so far since being discharged home. Pain is controlled with medication as listed. She states the most pain is where they removed the cholecystostomy tube from. Denies any incision concerns, bleeding, redness, or drainage. Denies chest pain, nausea, vomiting, or diarrhea. Confirms she is passing gas and moving bowels well and they remain soft but not diarrhea. She is using home oxygen 3l as directed. Denies any increased shortness of breath since being home.She states levels continue to be around 91%. Confirms she is tolerating intake. She states she is still weak but feels like that improves each day. She is up moving around well and states she is outside right now getting some fresh air. Denies any other new / worsening symptoms at this time. Denies any additional PCP needs, questions, or concerns. Education Provided by ACN to Support Self-Management, Independent Living and ADLs: Discharge instructions reviewed. Patient to call PCP for any new, worsening, or returning symptoms, questions ,or concerns. Call 911 for any severe symptoms Communication with Home Health Agencies and Other Services Utilized/Needed by the Patient: Tanja Jensen [facility] - Start of care completed. [employer] - Home oxygen supplies documented in this encounterSt. [facility] HospitalThe [facility] [id number] Telephone encounter Note* Telephone Encounter - Chaya Doll RN - 04/15/2025 2:07 PM EDT Images from the original note were not included. Transition of Care (*required) *Additional Questions/Concerns Requiring PCP Follow-Up: Patient declines PCP TCV at this time. She is planning to follow up with surgery for post op visit as scheduled. Denies needs for PCP at this time. This documentation is being used for Transition of Care purposes: Yes Goal: Patient will demonstrate a safe transition from hospital to home. Diagnosis on Discharge: Acute cholecystitis due to biliary calculus (Primary Dx); Cholecystitis Discharge Specialty: Other *Name of Discharging Facility: [facility] Date of Facility Discharge: 04.10.25 - 04.13.25 Date of Interactive Contact and Name of Welding Machine Operator Helper Gas: 04.15.25 @ 4515 - Spoke with patient *Medication Review Completed: Yes Confirms she has medications and denies needs or questions at this time. Medication Reconciliation Questions/Concerns: None *Follow Up Appointments with Providers: Primary: Wild Centeno, DO 06.24.25 Specialty: Gen Surg - 04.23.25 Specialty: Specialty: Review of Pending Lab/Diagnostic Tests and Plan for Completion: None Assessment and Support of Treatment Regimen Adherence and Medication Management: Patient states she is doing well so far since being discharged home. Pain is controlled with medication as listed. She states the most pain is where they removed the cholecystostomy tube from. Denies any incision concerns, bleeding, redness, or drainage. Denies chest pain, nausea, vomiting, or diarrhea. Confirms she is passing gas and moving bowels well and they remain soft but not diarrhea. She is using home oxygen 3l as directed. Denies any increased shortness of breath since being home.She states levels continue to be around 91%. Confirms she is tolerating intake. She states she is still weak but feels like that improves each day. She is up moving around well and states she is outside right now getting some fresh air. Denies any other new / worsening symptoms at this time. Denies any additional PCP needs, questions, or concerns. Education Provided by ACN to Support Self-Management, Independent Living and ADLs: Discharge instructions reviewed. Patient to call PCP for any new, worsening, or returning symptoms, questions ,or concerns. Call 911 for any severe symptoms Communication with Home Health Agencies and Other Services Utilized/Needed by the Patient: Tabkim Denair [facility] - Start of care completed. [employer] - Home oxygen supplies [employer]06-09-2025 Miscellaneous Notes* Telephone Encounter - Chelsi Dee RN - 04/15/2025 11:27 AM EDT Transition of Care documented in this encounterUniversity [facility] CenterSh[facility]06-09-2025 Telephone encounter Note* Telephone Encounter - Chelsi Dee RN - 04/15/2025 11:27 AM EDT Transition of Care [employer] Work Phone: [phone]) 457-316206-07-2025 History of Present illness Narrative* Melida Merlos DO - 04/13/2025 1:15 PM EDT Patient was evaluated today for the diagnosis of post-op deconditioning. I entered a DME order for home oxygen at 2 lpm because the diagnosis and testing require the patient to have supplemental oxygen. Condition will improve or be benefited by oxygen use. The patient is not able to perform good mobility in a home setting and therefore does require the use of a portable oxygen system. The need for this equipment was discussed with the patient and she understands and is in agreement. * Sarah Bhatt MD - 04/12/2025 9:36 PM EDT Images from the original note were not included. PROGRESS NOTE PATIENT NAME: Tosha Mcneal DATE: 04/12/2025 PRIMARY CARE PHYSICIAN: Wild Centeno DO HD: # 2 ASSESSMENT Patient Active Problem List Diagnosis S/P total knee replacement using cement, left Diabetes mellitus (HCC) Hypertension Acute cholecystitis Hypotension due to hypovolemia Troponin level elevated Hyperlipidemia BOO (acute kidney injury) Sepsis associated hypotension (HCC) Lactic acidosis Hypovolemia Pulmonary infiltrate Atelectasis pulmonary RONEN (obstructive sleep apnea) Cholecystitis Acute cholecystitis due to biliary calculus 74yo post-op lap jt for cholecystitis MEDICAL DECISION MAKING AND PLAN MMPT IS, pulm toilet, ambulate 3x daily Resume BUTTONHOLE FACER lasix dosing Continue regular diet Monitor UOP Home oxygen eval to be ordered Will repeat BMP in p.m. If creatinine is stable, will plan to discharge home. If BMP shows worsening creatinine, will hold Lasix. Anticipate home tomorrow as O2 requirements decrease Chief Complaint: can I go home SUBJECTIVE Tosha Mcneal is doing well this AM. Pain is with movement, otherwise resting comfortably on 3L NC. Passing flatus, no nausea OBJECTIVE VITALS: Temp: Temp: 98 F (36.7 C)Temp Av.1 F (36.7 C) Min: 97.5 F (36.4 C) Max: 98.4 F (36.9 C) BP Systolic (24hrs), Av , Min:96 , Max:123 Diastolic (24hrs), Av, Min:43, Max:56 Pulse Pulse Av.7 Min: 59 Max: 78 Resp Resp Av.4 Min: 11 Max: 18 Pulse ox SpO2 Av.6 %Min: 85 % Max: 96 % GENERAL: alert, no distress NEURO: intact LUNGS: clear to ausculation, without wheezes, rales or rhonci HEART: normal rate and regular rhythm ABDOMEN: soft, non-tender, non-distended, bowel sounds present in all 4 quadrants, and no guarding or peritoneal signs present, surgical sites with dermabond EXTREMITY: no cyanosis, clubbing or edema I/O last 3 completed shifts: In: 1513.1 [P.O.:890; I.V.:623.1] Out: - Drain/tube output: In: 1093.1 [P.O.:470; I.V.:623.1] Out: - LAB: CBC: Recent Labs 04/10/25 2134 04/11/25 0710 04/12/25 0758 WBC 9.7 11.7* 10.0 HGB 13.0 11.8* 10.9* HCT 40.8 37.9 35.8* MCV 91.7 91.5 95.0 PLT 195 181 177 BMP: Recent Labs 04/11/25 0710 04/12/25 0758 04/12/25 1607 NA 140 134* 137 K 4.1 3.9 3.8 CL 101 97* 98 CO2 25 24 26 BUN 18 27* 27* CREATININE 0.9 1.1* 1.2* GLUCOSE 216* 196* 265* COAGS: No results for input(s): APTT , INR in the last 72 hours. Invalid input(s): PROT RADIOLOGY: No results found. Sarah Bhatt MD 04/12/2025 , 9:36 PM Cosigned by Rajni Cline MD at 04/13/2025 11:02 AM EDT Associated attestation - Rajni Cline MD - 04/13/2025 11:02 AM EDT I personally examined the patient, directed the medical decision-making, and am in agreement with the Resident/JOSELITO after the physical/radiologic exam and laboratory values were reviewed and confirmed. Doing well POD#2. Remains on 2-3L NC. Home O2 eval. Continue IS and MMPT. Tolerating reg diet. S. Fam Cline MD, [facility] Acute Care Surgery Attending [facility] * Musa Mathew RCP - 04/12/2025 11:09 AM EDT Home Oxygen Evaluation Home Oxygen Evaluation completed. Patient is on 2 liters per minute via Nasal Cannula. Resting SpO2 = 91% Resting SpO2 on room air = 85% SpO2 on oxygen as above with exercise = 94% Pt does require home oxygen of 3L NC Nocturnal Oximetry with patient on room air is recommended is SpO2 is between 89% and 95% (requiresadditional order). MUSA MATHEW RCP 11:09 AM * Anna Pyle APRN - [employer]UM[employer] - 04/11/2025 12:46 PM EDT Images from the original note were not included. PROGRESS NOTE PATIENT NAME: Tosha Mcneal DATE: 04/11/2025 PRIMARY CARE PHYSICIAN: Wild Centeno DO HD: # 1 ASSESSMENT Patient Active Problem List Diagnosis S/P total knee replacement using cement, left Diabetes mellitus (HCC) Hypertension Acute cholecystitis Hypotension due to hypovolemia Troponin level elevated Hyperlipidemia BOO (acute kidney injury) Sepsis associated hypotension (HCC) Lactic acidosis Hypovolemia Pulmonary infiltrate Atelectasis pulmonary RONEN (obstructive sleep apnea) Cholecystitis Acute cholecystitis due to biliary calculus 74yo post-op lap jt for cholecystitis MEDICAL DECISION MAKING AND PLAN MMPT IS, pulm toilet, ambulate 3x daily Resume BUTTONHOLE FACER lasix dosing Stop mIVF Regular diet Monitor UOP Anticipate home tomorrow as O2 requirements decrease Chief Complaint: can I go home SUBJECTIVE Tosha Mcneal is doing well this AM. Pain is with movement, otherwise resting comfortably on 3L NC. Passing flatus, no nausea OBJECTIVE VITALS: Temp: Temp: 98.4 F (36.9 C)Temp Av.8 F (36.6 C) Min: 97.3 F (36.3 C) Max: 98.4 F (36.9C) BP Systolic (24hrs), Av , Min:115 , Max:127 Diastolic (24hrs), Av, Min:47, Max:59 Pulse Pulse Av.1 Min: 70 Max: 76 Resp Resp Av.8 Min: 12 Max: 26 Pulse ox SpO2 Av.1 %Min: 90 % Max: 93 % GENERAL: alert, no distress NEURO: intact LUNGS: clear to ausculation, without wheezes, rales or rhonci HEART: normal rate and regular rhythm ABDOMEN: soft, non-tender, non-distended, bowel sounds present in all 4 quadrants, and no guarding or peritoneal signs present, surgical sites with dermabond EXTREMITY: no cyanosis, clubbing or edema I/O last 3 completed shifts: In: 2757.7 [P.O.:350; I.V.:2307.2; IV Piggyback:100.5] Out: 300 [Urine:300] Drain/tube output: In: 2757.7 [P.O.:350; I.V.:2307.2] Out: 300 [Urine:300] LAB: CBC: Recent Labs 04/10/25213304/11/25 0710 WBC 9.7 11.7* HGB 13.0 11.8* HCT 40.8 37.9 MCV 91.7 91.5 PLT 195 181 BMP: Recent Labs 04/10/25213304/11/25 0710 NA 143 140 K 4.0 4.1 CL 102 101 CO2 26 25 BUN 16 18 CREATININE 0.9 0.9 GLUCOSE 219* 216* COAGS: No results for input(s): APTT , INR in the last 72 hours. Invalid input(s): PROT RADIOLOGY: No results found. VINCE BARNARD CNP 04/11/25, 12:46 PM Cosigned by Rajni Cline MD at 04/11/2025 3:03 PM EDT Associated attestation - Rajni Cline MD - 04/11/2025 3:03 PM EDT I personally examined the patient, directed the medical decision-making, and am in agreement with the Resident/JOSELITO after the physical/radiologic exam and laboratory values were reviewed and confirmed. Doing well POD#1. Tolerating reg diet. Pain well controlled. Weaned to 2L NC. IS ~500. Will need to wean off O2 prior to d/c today. Rhina. Fam Cline MD, FACS Acute Care Surgery Attending [facility] * Alfred Montejo, PERLA - 04/10/2025 9:39 PM EDT Labs sent. at bedside * Antoni Carr RN - 04/08/2025 2:48 PM EDT Cardiology,moderate risk documented in this encounterBon Steven [place]ille [id number] Hospital Discharge instructions* Discharge Instr - JEANETTE* ChelitaMelidaDO - 04/13/2025 9:11 AM EDT Continuity of Care Form Patient Name: Tosha Mcneal : 1950 Admit date: 04/10/2025 Discharge date: 04/13 Code Status Order: Full Code Advance Directives: Date/Time Healthcare Directive Type of Healthcare Directive Copy in Chart Healthcare Agent Appointed Healthcare Agent's Name Healthcare Agent's Phone Number 04/10/25 1225 Yes, patient has an advance directive for healthcare treatment Durable power of managing attorney for health care;Living will No, copy requested from family Spouse Dayo Mcneal--pt's [phone] Admitting Physician: Rajni Cline MD PCP: Wild Centeno DO Discharging Nurse: cc Discharging Hospital Unit/Room#: 0445/0445-01 Discharging Unit Phone Number: [phone] Emergency Contact: Extended Emergency Contact Information Primary Emergency Contact: Dayo Mcneal [facility] Relation: Spouse Secondary Emergency Contact: Wayne Mcneal Mobile Relation: Child Past Surgical History: Past Surgical History: Procedure Laterality Date CARPAL TUNNEL RELEASE Right CHOLECYSTECTOMY, LAPAROSCOPIC 04/10/2025 CHOLECYSTECTOMY, LAPAROSCOPIC N/A 04/10/2025 LAPAROSCOPIC CHOLECYSTECTOMY performed by Rajni Cline MD at [facility] OR CYST REMOVAL tailbone EYE SURGERY Left fracture repair FRACTURE SURGERY Left left arm IR CHOLECYSTOSTOMY PERCUTANEOUS COMPLETE 03/04/2025 IR CHOLECYSTOSTOMY PERCUTANEOUS COMPLETE 03/04/2025 Tanner Baez MD [facility] SPECIAL PROCEDURES SHOULDER ARTHROSCOPY Left 2019 Dr Levy at [facility] TONSILLECTOMY TOTAL KNEE ARTHROPLASTY Left 10/03/2023 TOTAL KNEE ARTHROPLASTY Left 10/03/2023 KNEE TOTAL ARTHROPLASTY performed by Aly Higgins MD at [facility] OR TUBAL LIGATION Immunization History: Immunization History Administered Date(s) Administered COVID-19, PFIZER PURPLE top, DILUTE for use, (age 12 y+), 30mcg/0.3mL 01/01/2021, 01/22/2021, 10/06/2021 Active Problems: Patient Active Problem List Diagnosis Code S/P total knee replacement using cement, left Z96.652 Diabetes mellitus (HCC) E11.9 Hypertension I10 Acute cholecystitis K81.0 Hypotension due to hypovolemia E86.1 Troponin level elevated R79.89 Hyperlipidemia E78.5 BOO (acute kidney injury) N17.9 Sepsis associated hypotension (HCC) A41.9, I95.9 Lactic acidosis E87.20 Hypovolemia E86.1 Pulmonary infiltrate R91.8 Atelectasis pulmonary J98.11 RONEN (obstructive sleep apnea) G47.33 Cholecystitis K81.9 Acute cholecystitis due to biliary calculus K80.00 Isolation/Infection: Isolation No Isolation Patient Infection Status None to display Nurse Assessment: Last Vital Signs: BP (!) 131/44 Pulse 63 Temp 98.2 F (36.8 C) (Oral) Resp 16 Ht 1.524 m (5') Wt 95.3 kg (210 lb) SpO2 96% BMI 41.01 kg/m Last documented pain score (0-10 scale): Pain Level: 0 Last Weight: Wt Readings from Last 1 Encounters: 04/10/25 95.3 kg (210 lb) Mental Status: oriented IV Access: - None Nursing Mobility/ADLs: Walking Independent Transfer Independent Bathing Independent Dressing Independent Toileting Independent Feeding Independent Shredder Picker Independent Med Delivery whole Wound Care Documentation and Therapy: Incision 10/03/23 Knee Left (Active) Number of days: 557 Incision 04/10/25 Abdomen Left;Medial;Upper (Active) Dressing Status Other (Comment) 04/12/251954 Dressing/Treatment Surgical glue 04/12/251954 Closure Surgical glue 04/12/251954 Margins Approximated 04/12/251954 Incision Assessment Dry 04/12/251954 Drainage Amount None (dry) 04/12/251954 Number of days: 2 Elimination: Continence: Bowel: Yes Bladder: Yes Urinary Catheter: None Colostomy/Ileostomy/Ileal Conduit: No Date of Last BM: 04/13 Intake/Output Summary (Last 24 hours) at 04/13/2025 0911 Last data filed at 04/13/2025 0317 Gross per 24 hour Intake 220 ml Output -- Net 220 ml I/O last 3 completed shifts: In: 1193.1 [P.O.:570; I.V.:623.1] Out: - Safety Concerns: At Risk for Falls Impairments/Disabilities: None Nutrition Therapy: Current Nutrition Therapy: - Oral Diet: General Routes of Feeding: Oral Liquids: Thin Liquids Daily Fluid Restriction: no Last Modified Barium Swallow with Video (Video Swallowing Test): not done Treatments at the Time of Hospital Discharge: Respiratory Treatments: Oxygen Therapy: is on oxygen at 3 L/min per nasal cannula. Ventilator: - No ventilator support Rehab Therapies: Physical Therapy and Occupational Therapy Weight Bearing Status/Restrictions: No weight bearing restrictions Other Medical Equipment (for information only, NOT a DME order): walker Other Treatments: Patient's personal belongings (please select all that are sent with patient): None RN SIGNATURE: CASE MANAGEMENT/SOCIAL WORK SECTION Inpatient Status Date: 04/10/25 Readmission Risk Assessment Score: [facility] RISK OF UNPLANNED READMISSION 2.0 18.3 Total Score Discharging to Facility/ Agency Name: Prue marlin Agrawal Denair [facility] Address: Phone: Fax: Dialysis Facility (if applicable) Name: Address: Dialysis Schedule: Phone: Fax: Tariff Inspector/Hand Grinder signature: EDT PHYSICIAN SECTION Prognosis: Good Condition at Discharge: Stable Rehab Potential (if transferring to Rehab): Good Recommended Labs or Other Treatments After Discharge: supplemental O2 Physician Certification: I certify the above information and transfer of Tosha Mcneal is necessary for the continuing treatment of the diagnosis listed and that she requires Home Care for greater 30 days. Update Admission H&P: No change in H&P PHYSICIAN SIGNATURE: documented in this encounterBon [facility] NotePatient is here today for a 1 month follow from admission to [facility]. Patient states she was in [facility] due to her gall bladder. She has a drain tube draining her gall bladder, patient states there was so much fluid around around her gall bladder. Patient states since she has had the tube her abdomen her ankles have decrease in size. Patient states she is no longer having shortness of breath or swelling. Review of Systems Constitutional: Negative.[facility]05-20-2025 Note Cardiovascular Medicine [facility] SUBJECTIVE Chief Complaint Patient presents with Congestive Heart Failure Hypertension Hyperlipidemia Tosha Mcneal is a 74 y.o. female here for follow-up. HPI PMHx: HFpEF, HTN, HLD 03/26/2025 Since last seen, she was admitted to [facility] with acute cholecystitis. Her troponin levels were mildly elevated, peaked at 112. She denied any c/o chest pain. She is down 19# since last seen. After her recent hospital stay, her amlodipine was stopped and lasix was changed to daily. Her breathing is feeling better and her leg edema is improved. 02/19/2025 She c/o increased BLE edema and increased FINLEY since last seen last month. Her weight is up 6#. Her chest feels heavy when she's short of breath. She c/o orthopnea. She has dry cough. Cough is worse in the morning. She feels bloated. Denies any c/o chest pain. 01/17/2025 She notes her FINLEY and leg [...] Enlarged pituitary gland Rupture of operation wound Acute cholecystitis BOO (acute kidney injury) Arm fracture Carpal tunnel syndrome Gout History of kidney stones Hydroureteronephrosis Hypovolemia Lactic acidosis RONEN (obstructive sleep apnea) Osteoporosis Pilonidal cyst Atelectasis pulmonary Pulmonary infiltrate Troponin level elevated Past Medical History: Diagnosis Date CHF (congestive heart failure) (CMS/HCC) Diabetes mellitus (CMS/HCC) Hyperlipidemia Hypertension Family History Problem Relation Name Age of Onset Coronary artery disease Father Heart attack Father Social History Tobacco Use Smoking status: Never Smokeless tobacco: Never Substance Use Topics Alcohol use: Never Drug use: Never Allergies Allergen Reactions Jardiance [Empagliflozin] Rash Amlodipine Other Possible leg swelling Spironolactone Other Hyperkalemia OBJECTIVE Visit Vitals BP 118/57 (BP Location: Right arm, Patient Position: Sitting) Pulse 70 Ht 1.524 m (5') Wt 96.6 kg (213 lb) SpO2 95% BMI 41.60 kg/m??? Smoking Status Never BSA 2.02 m??? Medications: Current Outpatient Medications: allopurinol (Zyloprim) 100 mg tablet, take 1 tablet by mouth IN THE MORNING ( START after FLARE UP RESOLVES ), Disp: , Rfl: aspirin 81 mg chewable tablet, in the morning., Disp: , Rfl: carvedilol (Coreg) 25 mg tablet, Take 25 mg by mouth in the morning and at bedtime., Disp: , Rfl: ergocalciferol (Vitamin D-2) 1.25 MG (97940 Units) capsule, Take 1 capsule by mouth 1 (one) time per week., Disp: , Rfl: furosemide (Lasix) 40 mg tablet, Take 1 tablet (40 mg) by mouth in the morning., Disp: , Rfl: insulin NPH and regular [...] under the skin NIGHTLY, Disp: , Rfl: Physical Exam Vitals reviewed. Constitutional: Appearance: Normal appearance. She is obese. HENT: Head: Normocephalic and atraumatic. Right Ear: External ear normal. Left Ear: External ear normal. Eyes: Extraocular Movements: Extraocular movements intact. Conjunctiva/sclera: Conjunctivae normal. Pupils: Pupils are equal, round, and reactive to light. Neck: Vascular: No carotid bruit. Cardiovascular: Rate a (more content not included)...[facility] 03-21-2025 History of Present illness Narrative* Wild Centeno, DO - 03/21/2025 11:00 AM EDT Subjective Patient ID: Tosha Mcneal is a 74 y.o. female. The patient is here today for discharge follow up from hospital. Transition of Care Med Rec completed? Yes Discharged medications: Medications have been reviewed and reconciled with the most recent facilitydischarge document. Alpa presents today for hospital follow-up. She was admitted to [facility] after she went to [facility] Emergency Department 2 weeks ago. She does not recall really and the events around for hospitalization. She said she does not remember 5 days, her being in the hospital. She does remember that she did not feel well her to the ER twice. She was having nausea and vomiting. See what that home back to the first ER visit. At the 2nd 1 she was sent to [place]. She does not recall the events. He has a tube draining her gallbladder right now. They have to drain and about every 3hours. It is green bile like material. He was eating better. Her appetite is still not up to normal. She is having normal bowel movements. She does have a Dexcom and we did download 2 weeks' worth ofher most recent blood sugars and her average is 146. She does note that goes up after she eats which is fairly normal. It rarely goes above 200. She has had low blood sugars of the in the 70s and 80sbut that is also rare. She was asymptomatic when that happens. Her Dexcom alarm goes off and then she will drink something to regularly off. She is using 60 units of Novolin N in the morning and 10 units of Tresiba at night. She uses short-acting NovoLog 6 units before meals but does not use it consisitently. She uses it 1 to 2 times a day. The following portions of the patient's history were reviewed and updated as appropriate: allergies, current medications, past family history, past medical history, past social history, past surgicalhistory, problem list, and medication reconciliation was completed including current medication andpost discharge medication. Review of Systems Objective Physical Exam Vitals reviewed. Exam conducted with a pantry attendant present ( and Catracho Stroud MS 3). Constitutional: General: She is not in acute distress. Appearance: She is morbidly obese. HENT: Head: Normocephalic. Cardiovascular: Rate and Rhythm: Normal rate and regular rhythm. Pulses: Normal pulses. Heart sounds: Normal heart sounds. No murmur heard. Pulmonary: Effort: Pulmonary effort is normal. No respiratory distress. Breath sounds: Normal breath sounds. No wheezing, rhonchi or rales. Abdominal: General: Bowel sounds are normal. There is no distension. Palpations: Abdomen is soft. Tenderness: There is no abdominal tenderness. There is no guarding or rebound. Hernia: No hernia is present. Musculoskeletal: Cervical back: Neck supple. No rigidity. Right lower le+ Pitting Edema present. Left lower le+ Pitting Edema present. Neurological: General: No focal deficit present. Mental Status: She is alert and oriented to person, place, and time. Psychiatric: Mood and Affect: Mood normal. Behavior: Behavior normal. Thought Content: Thought content normal. Judgment: Judgment normal. Assessment/Plan Tosha was seen today for tcm, diabetes, hyperlipidemia and hypertension. Diagnoses and all orders for this visit: Acute cholecystitis Much improved. Follow up with general surgeon. She will need GB removed. Essential hypertension - Comprehensive metabolic panel; Future - Comprehensive metabolic panel Her blood pressure is great. Check CMP Hypokalemia - Comprehensive metabolic panel; Future - Comprehensive metabolic panel Check potassium. Type 2 diabetes mellitus with stage 3a chronic kidney disease, with long-term current use of insulin ([facility]) - Hemoglobin A1c; Future - Hemoglobin A1c Check A1c. The last 2 weeks of her glucometer has been downloaded and it is very good. I am going to stop her Novolin N 60 units and increase her Tresiba 50 units and see how she does. She was encouraged to use the short-acting insulin with each meal. Morbid obesity ([facility]) She is obese. She has lost weight but because she has been sick. It will benefit her overall but would be better if she could lose it through proper diet and exercise. 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 ([facility]) Follow up with specialist as directed Other orders - insulin degludec (TRESIBA FLEXTOUCH U-100) 100 unit/mL (3 mL) insulin pen; Inject 50 Units under the skin nightly. documented in this encounterSt. Francis HospitalXSI Semi Conductors [phone] Miscellaneous Notes* Telephone Encounter - Tressa Campbell CMA - 03/13/2025 3:50 PM EDT [facility] called inquiring about you to follow her with her care. Please advise. Thank you. * Telephone Encounter - Wild Centeno DO - 03/13/2025 3:50 PM EDT Sure * Telephone Encounter - Amanda Poole CMA - 03/13/2025 3:50 PM EDT They did a SOC today for the patient and is concerned about the blood Sugars. Patient spoke with gissel she states her BS are running 100-140 during the day. Then at night 89-90. Is there any changesthat need to be made? * Telephone Encounter - Wild Centeno DO - 03/13/2025 3:50 PM EDT No changes unless she is symptomatic * Telephone Encounter - Amanda Poole CMA - 03/13/2025 3:50 PM EDT NOTIFIED documented in this encounterWilson [facility] Telephone encounter Note* Telephone Encounter - Tressa Campbell CMA - 03/13/2025 3:50 PM EDT [facility] called inquiring about you to follow her with her care. Please advise. Thank you. [facility]05-07-2025 Telephone encounter Note* Telephone Encounter - Wild Centeno DO - 03/13/2025 3:50 PM EDT Sure [facility]05-07-20[facility] Telephone encounter Note* Telephone Encounter - Amanda Poole CMA - 03/13/2025 3:50 PM EDT They did a SOC today for the patient and is concerned about the blood Sugars. Patient spoke with gissel she states her BS are running 100-140 during the day. Then at night 89-90. Is there any changesthat need to be made? [facility]05-07-2025 Telephone encounter Note* Telephone Encounter - Wild Centeno DO - 03/13/2025 3:50 PM EDT No changes unless she is symptomatic [facility]05-07-2025 Telephone encounter Note* Telephone Encounter - Amanda Poole CMA - 03/13/2025 3:50 PM EDT NOTIFIED [facility]05-05-2025 Miscellaneous Notes* Telephone Encounter - Any Delatorre RN - 03/11/2025 11:05 AM EDT Images from the original note were not included. Transition of Care (*required) *Additional Questions/Concerns Requiring PCP Follow-Up: Transitional Care visit 03/21/25. Please advise: Patient reports that she continues to have diarrheal stools that are black in color. She has had 4 episodes today. States the color is unchanged since her hospitalization. Stools are not tarry/sticky, just watery. Declines change in energy/declines increased fatigue. Denies abdominal pain/distention. States she just took her first dose of Imodium today. H/H appears stable throughout hospitalization. As this is unchanged, she was advised to monitor closely and call the office with any changes. Please advise if there are further recommendations for patient. Please reconcile patient's medications at upcoming visit. Patient declined full review over the phone. This documentation is being used for Transition of Care purposes: Yes Goal: Patient will demonstrate a safe transition from hospital to home. Diagnosis on Discharge: Principal Problem: Acute cholecystitis Active Problems: Troponin level elevated Diabetes mellitus Hypertension Hypotension due to hypovolemia Hyperlipidemia BOO (acute kidney injury) Sepsis associated hypotension Lactic acidosis Hypovolemia Procedures: 03/04/25 IR CHOLECYSTOSTOMY PERCUTANEOUS COMPLETE: Successful ultrasound fluoroscopic guided placement of 8 [place]an cholecystostomy tube. Discharge Specialty: Gastroenterology and Infectious Disease *Name of Discharging Facility: [facility] (admitted 03/03/25) Date of Facility Discharge: 03/10/25 Date of Interactive Contact and Name of Welding Machine Operator Helper Gas: 03/11/25 at 1:15pm Spoke with patient. *Medication Review Completed: Pending provider review START taking: amoxicillin-clavulanate (AUGMENTIN) oxyCODONE-acetaminophen (Percocet) pantoprazole (PROTONIX) STOP taking: amLODIPine 5 MG tablet (NORVASC) Do not take your blood pressure medication including Coreg and lisinopril if your systolic blood pressure less than 110. Medication Reconciliation Questions/Concerns: Patient reports that she picked up her new medications and that her list matches her discharge listthat she was given, but she declined a full review with abstract writer over the phone. Please reconcile at upcoming visit. *Follow Up Appointments with Providers: Primary: Wild Centeno, 03/21/25 at 11:00am Specialty: [facility] Cardiology Alfred Roman CNP 03/13/25 at 9:40am Specialty: General Surgery [phone] To schedule. Specialty: Review of Pending Lab/Diagnostic Tests and Plan for Completion: N/A. Assessment and Support of Treatment Regimen Adherence and Medication Management: Lives with spouse in a 1 story residence. Independent with ADLs, but family is able to assist as needed. DME: walker, wheelchair, glucometer, Dexcom. Denies additional needs. Transportation per family until recovered. Patient reports that she is doing pretty good . Patient reports that she continues to have diarrheal stools that are black in color. She has had 4 episodes today. States the color is unchanged since her hospitalization. Stools are not tarry/sticky, just watery. Declines change in energy/declines increased fatigue. Denies abdominal pain/distention. Denies N/V. No mucus in stool. No red blood in stool. States she just took her first dose of Imodium today. As this is unchanged, she was advised to monitor closely. Denies chest pain/palpitations. She has a BP cuff, but has not checked BP/HR since discharged. She was encouraged to monitor this. Per hospital notes: Do not take your blood pressure medication including Coreg and lisinopril if your systolic blood pressure less than 110. Denies SOB, coughing, or wheezing. She did NOT require oxygen at discharge. Notes swelling to bilateral ankles and feet, which does NOT extend above the ankle. This is ongoingsince hospitalization and has not worsened. She was encouraged to elevate her legs at rest. She does not wear compression stockings as she claims it makes her swelling worse. Denies redness/heat/wounds to BLE. Eating/drinking without difficulty. Denies N/V. She has not checked her BS since discharge. She has a Dexcom that she plans to apply this afternoon. Jt tube intact.. Drainage is gold color, which is unchanged. It was emptied in the middle of thenight and again this morning. She is uncertain of volume drained. States she did not go home with acup for measurement, but was encouraged to find something in her home that she is able to measure output with, such as a measuring cup. Insertion site without s/s complication. Ambulating without difficulty. Steady, using walker. Education Provided by ACN to Support Self-Management, Independent Living and ADLs: Reviewed discharge instructions per AVS. Reviewed signs and symptoms to monitor for and when to call provider/go to ED. Communication with Home Health Agencies and Other Services Utilized/Needed by the Patient: [facility] Voice message left to confirm they are following for home care services. Patient has not heard fromthem yet. * Telephone Encounter - Wild Centeno DO - 03/11/2025 11:05 AM EDT Continue with Imodium and I would add a fiber supplement to give her stool some bulk * Telephone Encounter - Any Delatorre RN - 03/11/2025 11:05 AM EDT Contact Type: Direct contact - Phone call with patient - general Patient instructed on provider recommendations. Patient states she is already taking a fiber tabletdaily. She was instructed to call office if symptoms worsen or fail to improve. Verbalized understanding. documented in this encounterWilson [facility] Hospital05-[facility]-2025 Telephone encounter Note* Telephone Encounter - Any Delatorre RN - 03/11/2025 11:05 AM EDT Images from the original note were not included. Transition of Care (*required) *Additional Questions/Concerns Requiring PCP Follow-Up: Transitional Care visit 03/21/25. Please advise: Patient reports that she continues to have diarrheal stools that are black in color. She has had 4 episodes today. States the color is unchanged since her hospitalization. Stools are not tarry/sticky, just watery. Declines change in energy/declines increased fatigue. Denies abdominal pain/distention. States she just took her first dose of Imodium today. H/H appears stable throughout hospitalization. As this is unchanged, she was advised to monitor closely and call the office with any changes. Please advise if there are further recommendations for patient. Please reconcile patient's medications at upcoming visit. Patient declined full review over the phone. This documentation is being used for Transition of Care purposes: Yes Goal: Patient will demonstrate a safe transition from hospital to home. Diagnosis on Discharge: Principal Problem: Acute cholecystitis Active Problems: Troponin level elevated Diabetes mellitus Hypertension Hypotension due to hypovolemia Hyperlipidemia BOO (acute kidney injury) Sepsis associated hypotension Lactic acidosis Hypovolemia Procedures: 03/04/25 IR CHOLECYSTOSTOMY PERCUTANEOUS COMPLETE: Successful ultrasound fluoroscopic guided placement of 8 [place]ankan cholecystostomy tube. Discharge Specialty: Gastroenterology and Infectious Disease *Name of Discharging Facility: [facility] (admitted 03/03/25) Date of Facility Discharge: 03/10/25 Date of Interactive Contact and Name of Welding Machine Operator Helper [employer]: 03/11/25 at 1:15pm Spoke with patient. *Medication Review Completed: Pending provider review START taking: amoxicillin-clavulanate (AUGMENTIN) oxyCODONE-acetaminophen (Percocet) pantoprazole (PROTONIX) STOP taking: amLODIPine 5 MG tablet (NORVASC) Do not take your blood pressure medication including Coreg and lisinopril if your systolic blood pressure less than 110. Medication Reconciliation Questions/Concerns: Patient reports that she picked up her new medications and that her list matches her discharge listthat she was given, but she declined a full review with abstract writer over the phone. Please reconcile at upcoming visit. *Follow Up Appointments with Providers: Primary: Wild Centeno, 03/21/25 at 11:00am Specialty: [facility] Cardiology Alfred RomanAUTUMN 03/13/25 at 9:40am Specialty: General Surgery [phone] To schedule. Specialty: Review of Pending Lab/Diagnostic Tests and Plan for Completion: N/A. Assessment and Support of Treatment Regimen Adherence and Medication Management: Lives with spouse in a 1 story residence. Independent with ADLs, but family is able to assist as needed. DME: walker, wheelchair, glucometer, Dexcom. Denies additional needs. Transportation per family until recovered. Patient reports that she is doing pretty good . Patient reports that she continues to have diarrheal stools that are black in color. She has had 4 episodes today. States the color is unchanged since her hospitalization. Stools are not tarry/sticky, just watery. Declines change in energy/declines increased fatigue. Denies abdominal pain/distention. Denies N/V. No mucus in stool. No red blood in stool. States she just took her first dose of Imodium today. As this is unchanged, she was advised to monitor closely. Denies chest pain/palpitations. She has a BP cuff, but has not checked BP/HR since discharged. She was encouraged to monitor this. Per hospital notes: Do not take your blood pressure medication including Coreg and lisinopril if your systolic blood pressure less than 110. Denies SOB, coughing, or wheezing. She did NOT require oxygen at discharge. Notes swelling to bilateral ankles and feet, which does NOT extend above the ankle. This is ongoingsince hospitalization and has not worsened. She was encouraged to elevate her legs at rest. She does not wear compression stockings as she claims it makes her swelling worse. Denies redness/heat/wounds to BLE. Eating/drinking without difficulty. Denies N/V. She has not checked her BS since discharge. She has a Dexcom that she plans to apply this afternoon. Jt tube intact.. Drainage is gold color, which is unchanged. It was emptied in the middle of thenight and again this morning. She is uncertain of volume drained. States she did not go home with acup for measurement, but was encouraged to find something in her home that she is able to measure output with, such as a measuring cup. Insertion site without s/s complication. Ambulating without difficulty. Steady, using walker. Education Provided by ACN to Support Self-Management, Independent Living and ADLs: Reviewed discharge instructions per AVS. Reviewed signs and symptoms to monitor for and when to call provider/go to ED. Communication with Home Health Agencies and Other Services Utilized/Needed by the Patient: [facility] Voice message left to confirm they are following for home care services. Patient has not heard fromthem yet. [facility]05-05-20[facility] Telephone encounter Note* Telephone Encounter - Wild Centeno DO - 03/11/2025 11:05 AM EDT Continue with Imodium and I would add a fiber supplement to give her stool some bulk [facility]05-05-2025 Telephone encounter Note* Telephone Encounter - Any Delatorre RN - 03/11/2025 11:05 AM EDT Contact Type: Direct contact - Phone call with patient - general Patient instructed on provider recommendations. Patient states she is already taking a fiber tabletdaily. She was instructed to call office if symptoms worsen or fail to improve. Verbalized understanding. [facility]05-05-2025 Miscellaneous Notes* Telephone Encounter - Chelsi Dee RN - 03/11/2025 9:52 AM EDT DC [facility] 03/10/25 documented in this encounterWilson [facility] Hospital05-[facility]-2025 Telephone encounter Note* Telephone Encounter - Chelsi Dee RN - 03/11/2025 9:52 AM EDT DC [facility] 03/10/25 [facility] [employer] Work Phone: [phone] Hospital course Narrative* Piter Weems MD - 03/10/2025 11:45 AM EDT Images from the original note were not included. [facility] Office: [phone] Juan F Medina DO, Sami Ghosh DO, Ashutosh Pereira DO, Omid March DO, Adeola Pablo MD, Elaine Barahona MD, Morena Cosby MD, Cely Brown MD, Juan M Erwin MD, Patrice Hilton MD, José Antonio Galloway MD, Rashid Canela DO, Jose M Rausch MD, Benton Sutton MD, Orlando Medina DO, Mary Acosta MD, Agustin Mckinley DO, Carine Mcmahan MD, Antonette Rosales MD, John Escobar MD, MD Latonya, Jesus Serrano MD, Pastor Pinedo MD, Piter Weems MD, Gray Sandy MD, Gray Tobias MD, Vitor Scherer DO, Jesusita Gresham MD, Marvin Oleary MD, Rashid Dial MD, Edwin Dial MD, Darryl Saha MD, Elinor Granados CNP, Sloane Interiano CNP, Vitor Qureshi CNP, Beth Sherwood, ARMAND, Vale Sesay, MASTERCAM PROGRAMMER, Jojo Lama MASTERCAM PROGRAMMER, Melida Nick, MASTERCAM PROGRAMMER, Desire Sarmiento, MASTERCAM PROGRAMMER, Katrin Haywood PA-C, Vika Cuevas MASTERCAM PROGRAMMER, Rosa Baez MASTERCAM PROGRAMMER, Serenity Mata MASTERCAM PROGRAMMER, Aleida FloresMASTERCAM PROGRAMMER, NOÉ BalderramaC, Karis Card MASTERCAM PROGRAMMER, Milady Villar, PIECE CUTTER, Codie Serra, MASTERCAM PROGRAMMER, Bren Palomo, MASTERCAM PROGRAMMER, Lakshmi Drake, MASTERCAM PROGRAMMER [facility] IN-PATIENT SERVICE [facility] Discharge Summary Patient ID: Tosha Mcneal DOB: 1950 ACCOUNT: [id number] Patient's PCP: Wild Centeno DO Admit Date: 03/03/2025 Discharge Date: 03/10/2025 Length of Stay: 7 Code Status: Full Code Admitting Physician: Piter Weems MD Discharge Physician: Piter Weems MD Active Discharge Diagnoses: Hospital Problem Lists: Principal Problem: Acute cholecystitis Active Problems: Troponin level elevated Diabetes mellitus (HCC) Hypertension Hypotension due to hypovolemia Hyperlipidemia BOO (acute kidney injury) Sepsis associated hypotension (HCC) Lactic acidosis Hypovolemia Resolved Problems: * No resolved hospital problems. * Admission Condition: fair Discharged Condition: good Hospital Stay: Hospital Course: 74-year-old female with a significant past medical history of hypertension, hyperlipidemia, type 2 diabetes mellitus who initially presented the emergency room with a chief complaint of back pain with right flank pain. Per documentation at outlying facility patient was found to be mildly distended with decreased bowel sounds and requiring 5 L nasal cannula initially for adequate oxygenation. CT imaging was concerning for acute cholecystitis. She was brought to [facility] and was evaluated by general surgery for which interventional radiology was consulted for evaluation for percutaneous cholecystostomy tube which was placed 03/04/2025. Cultures from percutaneous cholecystostomy tube grew E. coli heavy growth. 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 Upper GI follow-through done as well and did not show any leak in the region of the duodenum. Cardiology was consulted for elevated troponin and believed type II with ACS unlikely. Echocardiogram from 03/04/2025 demonstrated preserved ejection fraction with no wall motion. Plan for outpatient stress test. She did require pressors and significant oxygenation in the medical ICU which she was eventually weaned off pressors and her oxygen requirement decreased. She remained on Rocephin for cholecystitis and was transferred to the floor. Patient continued to feel better, her blood pressure improved and she did not require midodrine, even had a blood pressure in the higher side, IV antibiotic was switched to oral based on the sensitivity, who was seen and examined today at bedside, denies any complaint, noticed to have hypomagnesemia and hypokalemia which was replaced, she was advised to continue to care blood pressure andblood sugar at home and to follow-up with her primary doctor to adjust her medication if needed, patient reports that she already have prescription for her insulin and blood pressure medication at home and she did not need any refill, so we will give prescription for oral antibiotic and pain medication and she will be discharged home today in stable condition, discussed with RN at bedside Significant therapeutic interventions: as above Significant Diagnostic Studies: Labs / Micro: CBC: Lab Results Component Value Date/Time WBC 10.4 03/10/2025 03:44 AM RBC 4.49 03/10/2025 03:44 AM HGB 12.6 03/10/2025 03:44 AM HCT 41.6 03/10/2025 03:44 AM MCV 92.7 03/10/2025 03:44 AM MCH 28.1 03/10/2025 03:44 AM MCHC 30.3 03/10/2025 03:44 AM RDW 15.9 03/10/2025 03:44 AM PLT 238 03/10/2025 03:44 AM BMP: Lab Results Component Value Date/Time GLUCOSE 191 03/10/2025 03:44 AM NA 139 03/10/2025 03:44 AM K 3.6 03/10/2025 09:16 AM CL 101 03/10/2025 03:44 AM CO2 25 03/10/2025 03:44 AM ANIONGAP 13 03/10/2025 03:44 AM BUN 9 03/10/2025 03:44 AM CREATININE 0.7 03/10/2025 03:44 AM CALCIUM 8.0 03/10/2025 03:44 AM LABGLOM >90 03/10/2025 03:44 AM LABGLOM 59 09/08/2023 01:03 PM GFRAA >60 11/30/2018 01:17 PM GFR 11/30/2018 01:17 PM GFR 11/30/2018 01:17 PM Radiology: XR CHEST (2 VW) Result Date: 03/10/2025 1. Interval improvement in the appearance of the lung field since prior exam. 2. Small left effusion and possible left basilar atelectasis remains. 3. Heart size is smaller, now mildly enlarged. FL UGI Result Date: 03/05/2025 No clear fluoroscopic evidence for extravasation in the region of the duodenum/duodenal leak withinthe limitations of the study. XR ABDOMEN FOR NG/OG/NE TUBE PLACEMENT Result Date: 03/05/2025 Appropriate positioning of enteric tube. XR CHEST PORTABLE Result Date: 03/05/2025 1. Right IJ central venous catheter tip terminates in the region of the cavoatrial junction/proximal right atrium. 2. No pneumothorax. 3. Mild increased perihilar airspace disease, which may represent asymmetric edema or atelectasis. 4. Background cardiomegaly with vascular congestion and prominent interstitial change suggestive of edema. IR CHOLECYSTOSTOMY PERCUTANEOUS COMPLETE Result Date: 03/04/2025 Successful ultrasound fluoroscopic guided placement of 8 [place]ank[place] cholecystostomy tube. US ABDOMEN LIMITED Specify organ? LIVER, GALLBLADDER Result Date: 03/03/2025 Findings described above could represent acute cholecystitis as reported on concurrent MRCP although sonographic Henley sign is reportedly negative. Consider correlation with CT given the suspected perforation on MRCP. MRI ABDOMEN WO CONTRAST MRCP Result Date: 03/03/2025 1. Findings suspicious for perforated acute cholecystitis. 2. 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 Recommend follow-up pancreas protocol MRI in 2 years. XR CHEST PORTABLE Result Date: 03/03/2025 Findings suggest congestive heart failure Consultations: Consults: Final Specialist Recommendations/Findings: IP CONSULT TO GENERAL SURGERY IP CONSULT TO CARDIOLOGY IP CONSULT TO CARDIOLOGY IP CONSULT TO VASCULAR ACCESS TEAM IP CONSULT TO VASCULAR ACCESS TEAM The patient was seen and examined on day of discharge and this discharge summary is in conjunction with any daily progress note from day of discharge. Discharge plan: Disposition: Home Physician Follow Up: Rajni Cline MD [facility] [address] [facility] [address] Schedule an appointment as soon as possible for a visit in 2 week(s) to monitor perc jt drain and discuss interval cholecystectomy Wild Centeno, DO [address] [facility] [address] Follow up Requiring Further Evaluation/Follow Up POST HOSPITALIZATION/Incidental Findings: BMP Diet: regular diet Activity: As tolerated Instructions to Patient: Please continue to take your medication as prescribed, continue to check your blood pressure and blood sugar regularly at home, follow-up with your primary doctor within 1 week of discharge to recheck and to follow-up your blood sugar and blood pressure and to adjust your home medication if needed,and to recheck your potassium and magnesium level do not take your blood pressure medication including Coreg and lisinopril if your systolic blood pressure less than 110 Follow-up with general surgery after discharge Discharge Medications: Medication List START taking these medications amoxicillin-clavulanate 875-125 MG per tablet Commonly known as: AUGMENTIN Take 1 tablet by mouth 2 times daily for 5 days pantoprazole 40 MG tablet Commonly known as: PROTONIX Take 1 tablet by mouth 2 times daily (before meals) CONTINUE taking these medications aspirin 81 MG chewable tablet carvedilol 25 MG tablet Commonly known as: COREG furosemide 20 MG tablet Commonly known as: LASIX lisinopril 40 MG tablet Commonly known as: PRINIVIL;ZESTRIL magnesium oxide 400 MG tablet Commonly known as: MAG-OX metFORMIN 1000 MG tablet Commonly known as: GLUCOPHAGE NOVOLIN N SC PRESERVISION AREDS PO rosuvastatin 10 MG tablet Commonly known as: CRESTOR spironolactone 25 MG tablet Commonly known as: ALDACTONE STOP taking these medications amLODIPine 5 MG tablet Commonly known as: NORVASC Where to Get Your Medications These medications were sent to [id number] - [place], [place] - [address] - P [phone] - F [phone] [place] [address] amoxicillin-clavulanate 875-125 MG per tablet pantoprazole 40 MG tablet No discharge procedures on file. Time Spent on discharge is 32 mins in patient examination, evaluation, counseling as well as medication reconciliation, prescriptions for required medications, discharge plan and follow up. Electronically signed by Piter Weems MD 03/10/2025 11:45 AM Thank you Wild Badillo DO for the opportunity to be involved in this patient's care. documented in this encounterBon [facility] Discharge instructions* Discharge Instructions* Piter Weems MD - 03/10/2025 11:44 AM EDT Please continue to take your medication as prescribed, continue to check your blood pressure and blood sugar regularly at home, follow-up with your primary doctor within 1 week of discharge to recheck and to follow-up your blood sugar and blood pressure and to adjust your home medication if needed,and to recheck your potassium and magnesium level do not take your blood pressure medication including Coreg and lisinopril if your systolic blood pressure less than 110 Follow-up with general surgery after discharge * Discharge Instr - JEANETTE* Carmen Ramirez RN - 03/10/2025 9:49 AM EDT Continuity of Care Form Patient Name: Tosha Mcneal : 1950 Admit date: 03/03/2025 Discharge date: 03/10/2025 Code Status Order: Full Code Advance Directives: Admitting Physician: Piter Weems MD PCP: Wild Centeno DO Discharging Nurse: Carmen Khan Discharging Hospital Unit/Room#: 0423/0423-01 Discharging Unit Phone Number: [phone] Emergency Contact: Extended Emergency Contact Information [facility] Relation: Spouse Secondary Emergency Contact: Wayne Mcneal Mobile Relation: Child Past Surgical History: Past Surgical History: Procedure Laterality Date CARPAL TUNNEL RELEASE Right CYST REMOVAL tailbone EYE SURGERY Left fracture repair FRACTURE SURGERY Left left arm IR CHOLECYSTOSTOMY PERCUTANEOUS COMPLETE 03/04/2025 IR CHOLECYSTOSTOMY PERCUTANEOUS COMPLETE 03/04/2025 Tanner Baez MD [facility]EDURES SHOULDER ARTHROSCOPY Left 2019 Dr Levy at [facility] TONSILLECTOMY TOTAL KNEE ARTHROPLASTY Left 10/03/2023 TOTAL KNEE ARTHROPLASTY Left 10/03/2023 KNEE TOTAL ARTHROPLASTY performed by Aly Higgins MD at [facility] OR TUBAL LIGATION Immunization History: Immunization History Administered Date(s) Administered COVID-19, PFIZER PURPLE top, DILUTE for use, (age 12 y+), 30mcg/0.3mL 01/01/2021, 01/22/2021, 10/06/2021 Active Problems: Patient Active Problem List Diagnosis Code S/P total knee replacement using cement, left Z96.652 Diabetes mellitus (HCC) E11.9 Hypertension I10 Acute cholecystitis K81.0 Hypotension due to hypovolemia E86.1 Troponin level elevated R79.89 Hyperlipidemia E78.5 BOO (acute kidney injury) N17.9 Sepsis associated hypotension (HCC) A41.9, I95.9 Lactic acidosis E87.20 Hypovolemia E86.1 Isolation/Infection: Isolation No Isolation Patient Infection Status None to display Nurse Assessment: Last Vital Signs: BP (!) 152/59 Pulse 85 Temp 98.8 F (37.1 C) (Oral) Resp 21 Ht 1.524 m (5') Wt 103 kg (227 lb 1.2 oz) SpO2 98% BMI 44.35 kg/m Last documented pain score (0-10 scale): Pain Level: 3 Last Weight: Wt Readings from Last 1 Encounters: 03/08/25 103 kg (227 lb 1.2 oz) Mental Status: oriented and alert IV Access: - None Nursing Mobility/ADLs: Walking Independent Transfer Independent Bathing Independent Dressing Independent Toileting Independent Feeding Independent Shredder Picker Independent Med Delivery whole Wound Care Documentation and Therapy: Incision 10/03/23 Knee Left (Active) Number of days: 523 SHILA Drain connected to bulb suction Elimination: Continence: Bowel: Yes Bladder: Yes Urinary Catheter: None Colostomy/Ileostomy/Ileal Conduit: No Date of Last BM: 03/09/2025 Intake/Output Summary (Last 24 hours) at 03/10/2025 0944 Last data filed at 03/10/2025 0838 Gross per 24 hour Intake 100 ml Output 285 ml Net -185 ml I/O last 3 completed shifts: In: - Out: 415 [Drains:415] Safety Concerns: None Impairments/Disabilities: Vision Nutrition Therapy: Current Nutrition Therapy: - Oral Diet: Carb Control 4 carbs/meal (1800kcals/day) Routes of Feeding: Oral Liquids: No Restrictions Daily Fluid Restriction: no Last Modified Barium Swallow with Video (Video Swallowing Test): not done Treatments at the Time of Hospital Discharge: Respiratory Treatments: N/A Oxygen Therapy: is on oxygen at 2 L/min per nasal cannula. Ventilator: - No ventilator support Rehab Therapies: N/A Weight Bearing Status/Restrictions: No weight bearing restrictions Other Medical Equipment (for information only, NOT a DME order): walker Other Treatments: Patient's personal belongings (please select all that are sent with patient): Glasses, Dentures upper and lower RN SIGNATURE: CASE MANAGEMENT/SOCIAL WORK SECTION Inpatient Status Date: Readmission Risk Assessment Score: [facility] RISK OF UNPLANNED READMISSION 2.0 12.4 Total Score Discharging to Facility/ Agency Name: Address: Phone: Fax: Dialysis Facility (if applicable) Name: Address: Dialysis Schedule: Phone: Fax: Tariff Inspector/Hand Grinder signature: {Esignature:[id number]} PHYSICIAN SECTION Prognosis: {Prognosis:7684253674} Condition at Discharge: { Patient Condition:607147334} Rehab Potential (if transferring to Rehab): {Prognosis:0625492273} Recommended Labs or Other Treatments After Discharge: Physician Certification: I certify the above information and transfer of Tosha Mcneal is necessary for the continuing treatment of the diagnosis listed and that she requires {Admit to Appropriate Level of Care:10032} for {GREATER/LESS:523895101} 30 days. Update Admission H&P: {CHP DME Changes in HandP:959680245} PHYSICIAN SIGNATURE: {Esignature:[id number]} documented in this encounterBon [facility] History of Present illness Narrative* Chacha Mcarthur RN - 03/10/2025 6:34 AM EDT Pts morning labs resulted with a potassium of 3.2 and a magnesium of 1.4. Supervisor Color Making notified provider,see new orders. * Carlos Garcia MD - 03/09/2025 12:08 PM EDT Images from the original note were not included. PULMONARY & CRITICAL CARE MEDICINE PROGRESS NOTE Patient: Tosha Mcneal Admit date: 03/03/2025 Primary Care Physician: Wild Centeno DO Consulting Physician: Piter Weems* CODE Status: Full Code LOS: 6 SUBJECTIVE CHIEF COMPLAINT/REASON FOR INITIAL CONSULT:No chief complaint on file. BRIEF HOSPITAL COURSE: This a 74-year-old female with a significant past medical history of hypertension, hyperlipidemia, type 2 diabetes mellitus who initially presented the emergency room with a chief complaint of back pain with right flank pain. Per documentation at outlying facility patient was found to be mildly distended with decreased bowel sounds and requiring 5 L nasal cannula initially for adequate oxygenation. CT imaging was concerning for acute cholecystitis. She was brought to [facility] and was evaluated by general surgery for which interventional radiology was consulted for evaluation for percutaneous cholecystostomy tube which was placed 03/04/2025. Cultures from percutaneous cholecystostomy tube grew E. coli heavy growth. 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 Upper GI follow-through done as well and did not show any leak in the region of the duodenum. Cardiology was consulted for elevated troponinand believed type II with ACS unlikely. Echocardiogram from 03/04/2025 demonstrated preserved ejection fraction with no wall motion. Plan for outpatient stress test. She did require pressors and significant oxygenation in the medical ICU which she was eventually weaned off pressors and her oxygen requirement decreased. She remained on Rocephin for cholecystitis and was transferred to the floor. INTERVAL HISTORY: 03/09/25 Patient examined at bedside. Labs and chart reviewed. Vitals reviewed. Patient reports improvement in abdominal pain. She denies any chest pain or shortness of breath. Recent Labs 03/09/25 0738 WBC 8.9 In: 480 Out: 530 [Urine:250; Drains:280] Patient is currently on REVIEW OF SYSTEMS: Review of Systems Constitutional: Negative for appetite change, fatigue and fever. HENT: Negative. Eyes: Negative. Respiratory: Negative for cough, choking, chest tightness and shortness of breath. Cardiovascular: Negative for chest pain. Gastrointestinal: Negative for abdominal pain, constipation, diarrhea, nausea and vomiting. Endocrine: Negative. Genitourinary: Negative. Musculoskeletal: Negative. Skin: Negative. Allergic/Immunologic: Negative. Neurological: Negative for weakness, light-headedness and headaches. Hematological: Negative. Psychiatric/Behavioral: Negative. OBJECTIVE VITAL SIGNS: LAST: BP (!) 138/57 Pulse 76 Temp 99 F (37.2 C) (Oral) Resp 26 Ht 1.524 m (5') Wt 103 kg (227 lb 1.2 oz) SpO2 100% BMI 44.35 kg/m 8-24 HR RANGE: TEMP Temp Av.9 F (37.2 C) Min: 98.6 F (37 C) Max: 99.3 F (37.4 C) BP Systolic (24hrs), Av , Min:126 , Max:165 Diastolic (24hrs), Av, Min:57, Max:77 PULSE Pulse Av.8 Min: 65 Max: 77 RR Resp Av.7 Min: 25 Max: 26 O2 SAT SpO2 Av % Min: 100 % Max: 100 % OXYGEN DELIVERY No data recorded PHYSICAL EXAM: Physical Exam Vitals and nursing note reviewed. Constitutional: General: She is awake. Appearance: Normal appearance. HENT: Nose: Nose normal. Mouth/Throat: Pharynx: Oropharynx is clear. Eyes: Conjunctiva/sclera: Conjunctivae normal. Cardiovascular: Heart sounds: Normal heart sounds. Pulmonary: Effort: Pulmonary effort is normal. Breath sounds: Normal breath sounds. Chest: Chest wall: No tenderness. Abdominal: Palpations: Abdomen is soft. Tenderness: There is no abdominal tenderness. Musculoskeletal: Right lower leg: No edema. Left lower leg: No edema. Skin: General: Skin is dry. Neurological: Mental Status: She is alert and oriented to person, place, and time. Psychiatric: Mood and Affect: Mood normal. Behavior: Behavior is cooperative. DATA REVIEW CURRENT MEDICATIONS: Scheduled Meds: insulin lispro 5 Units SubCUTAneous TID WC insulin glargine 20 Units SubCUTAneous Daily aspirin 81 mg Oral Daily furosemide 20 mg Oral Daily magnesium oxide 400 mg Oral Daily rosuvastatin 10 mg Oral Nightly insulin lispro 0-16 Units SubCUTAneous 4x Daily AC & HS potassium bicarb-citric acid 40 mEq Oral Once pantoprazole 40 mg Oral BID AC enoxaparin 30 mg SubCUTAneous BID cefTRIAXone (ROCEPHIN) IV 1,000 mg IntraVENous Q24H midodrine 5 mg Oral TID WC sodium chloride flush 5-40 mL IntraVENous 2 times per day Continuous Infusions: sodium chloride Stopped (03/07/25 06) dextrose INPUT/OUTPUT: In: 480 [P.O.:480] Out: 530 [Urine:250; Drains:280] Date 03/09/25 - 03/09/252358 Shift 7282-2277 8292-1223 2081-1074 24 Hour Total INTAKE Shift Total(mL/kg) OUTPUT Drains(mL/kg) 70(0.7) 20(0.2) 90(0.9) Shift Total(mL/kg) 70(0.7) 20(0.2) 90(0.9) Weight (kg) 103 103 103 103 LABORATORY RESULTS: BLOOD GASES: No results for input(s): POCPH , POCPCO2 , POCPO2 , POCHCO3 , AHGQ7CGH in the last 72 hours. COMPLETE BLOOD COUNTS: Recent Labs 03/07/2544903/08/2563903/09/25 0738 WBC 11.3 9.2 8.9 HGB 11.3* 12.8 12.8 HCT 38.5 42.7 42.5 MCV 95.8 93.6 92.8 PLT 152 209 233 LYMPHOPCT 7* 11* 11* RBC 4.02 4.56 4.58 MCH 28.1 28.1 27.9 MCHC 29.4 30.0 30.1 RDW 16.2* 16.0* 15.9* C-REACTIVE PROTEIN: No results for input(s): CRP in the last 72 hours. LACTATE DEHYDROGENASE: No results for input(s): LDH in the last 72 hours. BASIC METABOLIC PROFILE: Recent Labs 03/07/2544903/08/2540 03/09/25 0738 NA 144 142 140 K 3.5* 3.5* 3.6* CL 107 103 101 CO2 28 28 27 BUN 22 13 10 CREATININE 0.6 0.6 0.7 GLUCOSE 215* 237* 276* MG 1.8 1.6 1.6 LIVER FUNCTION TESTS: Recent Labs 03/08/25 0640 03/09/25 0738 ALT 16 15 AST 18 18 ALKPHOS 86 75 BILITOT 0.8 0.8 COAGULATION PROFILE: No results for input(s): INR , PROTIME , APTT in the last 72 hours. D-DIMER: No results for input(s): DDIMER in the last 72 hours. LACTIC ACID: No results for input(s): LACTA in the last 72 hours. CARDIAC ENZYMES: No results for input(s): CKTOTAL , CKMB , CKMBINDEX , TROPONINI in the last 72 hours. Invalid input(s): TROPONIN , HSTROP BRAIN NATRIURETIC PEPTIDE/PRO-BRAIN NATRURETIC PEPTIDE: No results for input(s): BNP , PROBNP in the last 72 hours. TRIGLYCERIDES: No results for input(s): TRIG in the last 72 hours. MICROBIOLOGY RESULTS: URINE CULTURE: No components found for: CURINE BLOOD CULTURE: No components found for: CBLOOD , CFUNGUSBL SPUTUM CULTURE: No components found for: CSPUTUM No results for input(s): SPUTUM , SPECDESC , SPECIAL , CULTURE , STATUS , ORG , CDIFFTOXPCR , MPNEUM , MPNEUG , CAMPYLOBPCR , SALMONELLAPC , SHIGAPCR , SHIGELLAPCR , LACTOQL in the last 72 hours. Invalid input(s): CURINE , CBLOOD , CFUNGUSBL PATHOLOGY RESULTS: RADIOLOGY REPORTS: FL UGI Final Result No clear fluoroscopic evidence for extravasation in the region of the duodenum/duodenal leak within the limitations of the study. XR ABDOMEN FOR NG/OG/NE TUBE PLACEMENT Final Result Appropriate positioning of enteric tube. XR CHEST PORTABLE Final Result 1. Right IJ central venous catheter tip terminates in the region of the cavoatrial junction/proximal right atrium. 2. No pneumothorax. 3. Mild increased perihilar airspace disease, which may represent asymmetric edema or atelectasis. 4. Background cardiomegaly with vascular congestion and prominent interstitial change suggestive of edema. IR CHOLECYSTOSTOMY PERCUTANEOUS COMPLETE Final Result Successful ultrasound fluoroscopic guided placement of 8 [place] cholecystostomy tube. US ABDOMEN LIMITED Specify organ? LIVER, GALLBLADDER Final Result Findings described above could represent acute cholecystitis as reported on concurrent MRCP although sonographic Henley sign is reportedly negative. Consider correlation with CT given the suspected perforation on MRCP. MRI ABDOMEN WO CONTRAST MRCP Final Result 1. Findings suspicious for perforated acute cholecystitis. 2. 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 Recommend follow-up pancreas protocol MRI in 2 years. XR CHEST PORTABLE Final Result Findings suggest congestive heart failure ECHOCARDIOGRAM: Results for orders placed during the hospital encounter of 03/03/25 Echo (TTE) complete (PRN contrast/bubble/strain/3D) Interpretation Summary Normal left ventricular systolic function with EF by 2D Simpsons Biplane 60%. Mild concentric LV hypertrophy. Right ventricle size is normal. Normal systolic function. TAPSE 1.8 cm. Mild tricuspid regurgitation. RVSP 30 mmHg. Image quality is technically difficult. Contrast used: Lumason. Procedure performed with the patient in a supine position. ASSESSMENT AND PLAN PROBLEM LIST: Patient Active Problem List Diagnosis S/P total knee replacement using cement, left Diabetes mellitus (HCC) Hypertension Acute cholecystitis Hypotension due to hypovolemia Troponin level elevated Hyperlipidemia Acute cholecystitis Concerns for duodenal perforation/gallbladder perforation PLAN: I personally interviewed/examined the patient; reviewed interval history, interpreted all availableradiographic and laboratory data at the time of service. Patient is hemodynamically stable Currently saturating well on room air Continue supplemental oxygen to keep oxygen saturation >90% Continue nocturnal and as needed BiPAP Encourage incentive spirometry/Acapella Maintain bronchopulmonary hygiene Continue aspiration precautions Antimicrobials reviewed Monitor I/O, electrolytes with a goal of even/negative fluid balance DVT and stress ulcer prophylaxis Physical/occupational therapy Patient can be discharged from pulmonary standpoint It was my pleasure to evaluate Tosha Mcneal today. I would like to thank you for allowing me to participate in the care of this patient. Please feel free to call with any further questions or concerns. We will continue to follow. Ricardo Hutchison MD Pulmonary and Critical Care Medicine 03/09/2025, 12:08 PM This note is created with the assistance of a speech recognition program. While intending to generate a document that actually reflects the content of the visit, the document can still have some errors including those of syntax and sound-alike substitutions which may escape proof reading. It such instances, actual meaning can be extrapolated by contextual diversion. Attending Physician Statement I have discussed the care of Tosha Mcneal, including pertinent history and exam findings with the resident. I have reviewed the hernandez elements of all parts of the encounter with the resident. I haveseen and examined the patient with the resident. I agree with the assessment and plan and status ofthe problem list as documented. I saw the patient, ICU events noted, chart reviewed labs seen last chest x-ray seen. Chest x-ray in ICU shows mild pulmonary venous congestion and right upper lobe area of infiltrate/atelectasis likely atelectasis. Patient is currently on Rocephin for cholecystitis/cholangitis and she has cholecystostomy tube present. She is feeling better she is on room air maintaining saturation does not have shortness of breath. She is on oral diet. According to respiratory therapist note patient had refused BiPAP while she was sleeping. BiPAP wasrecommended at night and during naps. She will benefit from outpatient sleep study which was discussed previously. Encourage incentive spirometry deep breathing and cough. Repeat chest x-ray two-view tomorrow. Discussed with nursing staff, treatment and plan discussed. Discussed with respiratory therapist. Total critical care time caring for this patient with life threatening, unstable organ failure, including direct patient contact, management of life support systems, review of data including imaging and labs, discussions with other team members and physicians at least 35 Min so far today, excludingprocedures. This note is created with the assistance of a speech recognition program. While intent was to generate a document that actually reflects the content of the visit, the document can still have some errors including those of syntax and sound-alike substitutions which may escape proof reading. It such instances, actual meaning can be extrapolated by contextual diversion. Carlos Garcia MD 03/09/2025 4:33 PM * Piter Weems MD - 03/09/2025 11:49 AM EDT Images from the original note were not included. [facility] Office: [phone] Juan F Medina DO, Sami Ghosh DO, Ashutosh Pereira DO, Omid March DO, Adeola Pablo MD, Elaine Barahona MD, Morena Cosby MD, Cely Brown MD, Juan M Erwin MD, Patrice Hilton MD, José Antonio Galloway MD, Rashid Canela DO, Jose M Rausch MD, Benton Sutton MD, Orlando Medina DO, Mary Acosta MD, Agustin Mckinley DO, Carine Mcmahan MD, Antonette Rosales MD, John Escobar MD, MD Latonya, Jesus Serrano MD, Pastor Pinedo MD, Piter Weems MD, Gray Sandy MD, Gray Tobias MD, Vitor Scherer DO, Jesusita Gresham MD, Marvin Oleary MD, Rashid Dial MD, Edwin Dial MD, Darryl Saha MD, Elinor Granados CNP, Sloane Interiano CNP, Vitor Qureshi CNP, Beth Sherwood, ARMAND, Vale Sesay MASTERCAM PROGRAMMER, Jojo Lama MASTERCAM PROGRAMMER, Melida Nick, MASTERCAM PROGRAMMER, Desire Sarmiento, MASTERCAM PROGRAMMER, Katrin Haywood PAJavanC, Vika Cuevas MASTERCAM PROGRAMMER, Rosa Baez MASTERCAM PROGRAMMER, Serenity Mata MASTERCAM PROGRAMMER, Aleida Flores,MASTERCAM PROGRAMMER, Roscoe Licea PA-C, Karis Card MASTERCAM PROGRAMMER, Milady Villar, PIECE CUTTER, Codie Serra, MASTERCAM PROGRAMMER, Bren Palomo MASTERCAM PROGRAMMER, Lakshmi Drake, MASTERCAM PROGRAMMER [facility] IN-PATIENT SERVICE [facility] Progress Note 03/09/2025 11:49 AM Name: Tosha Mcneal Acct: [id number] Room[facility]/0423-01 Day: 6 Admit Date: 03/03/2025 11:22 AM PCP: Furlong, Wild G, DO Code Status: Full Code Subjective: C/C: No chief complaint on file. Interval History Status: improved. Patient was seen and examined, boyfriend at bedside, she was seen sitting in the chair, denies any complaint Blood sugar remained uncontrolled we will add insulin lispro with meals and will continue to monitor Lab vital sign reviewed Discussed with RN Brief History: As in HPI 74-year-old female with a significant past medical history of hypertension, hyperlipidemia, type 2 diabetes mellitus who initially presented the emergency room with a chief complaint of back pain with right flank pain. Per documentation at outlying facility patient was found to be mildly distended with decreased bowel sounds and requiring 5 L nasal cannula initially for adequate oxygenation. CT imaging was concerning for acute cholecystitis. She was brought to [facility] and was evaluated by general surgery for which interventional radiology was consulted for evaluation for percutaneous cholecystostomy tube which was placed 03/04/2025. Cultures from percutaneous cholecystostomy tube grew E. coli heavy growth. 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 Upper GI follow-through done as well and did not show any leak in the region of the duodenum. Cardiology was consulted for elevated troponin and believed type II with ACS unlikely. Echocardiogram from 03/04/2025 demonstrated preserved ejection fraction with no wall motion. Plan for outpatient stress test. She did require pressors and significant oxygenation in the medical ICU which she was eventually weaned off pressors and her oxygen requirement decreased. She remained on Rocephin for cholecystitis and was transferred to the floor. Review of Systems: Review of Systems Constitutional: Positive for fatigue. Negative for appetite change and fever. HENT: Negative for sore throat and trouble swallowing. Eyes: Negative for visual disturbance. Respiratory: Negative for cough, shortness of breath and wheezing. Cardiovascular: Negative for chest pain, palpitations and leg swelling. Gastrointestinal: Negative for abdominal pain, blood in stool, constipation, diarrhea, nausea and vomiting. Endocrine: Negative for polydipsia and polyuria. Genitourinary: Negative for decreased urine volume, difficulty urinating, dysuria, flank pain, frequency, hematuria and urgency. Musculoskeletal: Negative for back pain, gait problem and joint swelling. Skin: Negative for color change, rash and wound. Allergic/Immunologic: Negative for immunocompromised state. Neurological: Negative for dizziness, syncope, speech difficulty, weakness, light-headedness, numbness and headaches. Hematological: Negative for adenopathy. Psychiatric/Behavioral: Negative for agitation, behavioral problems and sleep disturbance. The patient is not nervous/anxious. Medications: Allergies: No Known Allergies Current Meds: Scheduled Meds: insulin lispro 5 Units SubCUTAneous TID WC insulin glargine 20 Units SubCUTAneous Daily aspirin 81 mg Oral Daily furosemide 20 mg Oral Daily magnesium oxide 400 mg Oral Daily rosuvastatin 10 mg Oral Nightly insulin lispro 0-16 Units SubCUTAneous 4x Daily AC & HS potassium bicarb-citric acid 40 mEq Oral Once pantoprazole 40 mg Oral BID AC enoxaparin 30 mg SubCUTAneous BID cefTRIAXone (ROCEPHIN) IV 1,000 mg IntraVENous Q24H midodrine 5 mg Oral TID WC sodium chloride flush 5-40 mL IntraVENous 2 times per day Continuous Infusions: sodium chloride Stopped (03/07/25 0619) dextrose PRN Meds: melatonin, HYDROmorphone, potassium chloride OR potassium alternative oral replacement OR potassium chloride, sodium chloride flush, sodium chloride, ondansetron OR ondansetron,polyethylene glycol, acetaminophen OR acetaminophen, glucose, dextrose bolus OR dextrose saul us, glucagon (rDNA), dextrose Data: Past Medical History: has a past medical history of Cancer (HCC), Diabetes mellitus (HCC), Hyperlipidemia, Hypertension, and Skin cancer of arm, right. Social History: reports that she has never smoked. She has never used smokeless tobacco. She reports that she does not currently use alcohol. She reports that she does not currently use drugs. Family History: No family history on file. Vitals: BP (!) 138/57 Pulse 76 Temp 99 F (37.2 C) (Oral) Resp 26 Ht 1.524 m (5') Wt 103 kg (227 lb 1.2 oz) SpO2 100% BMI 44.35 kg/m Temp (24hrs), Av.9 F (37.2 C), Min:98.6 F (37 C), Max:99.3 F (37.4 C) Recent Labs 03/08/25 1521 05/01/01 200903/09/2582903/09/25 1128 POCGLU 405* 288* 259* 288* I/O (24Hr): Intake/Output Summary (Last 24 hours) at 03/09/2025 1149 Last data filed at 03/09/2025 1000 Gross per 24 hour Intake 480 ml Output 220 ml Net 260 ml Labs: Hematology: Recent Labs 03/07/2544903/08/2563903/09/25 0738 WBC 11.3 9.2 8.9 RBC 4.02 4.56 4.58 HGB 11.3* 12.8 12.8 HCT 38.5 42.7 42.5 MCV 95.8 93.6 92.8 MCH 28.1 28.1 27.9 MCHC 29.4 30.0 30.1 RDW 16.2* 16.0* 15.9* PLT 152 209 233 MPV 10.6 10.7 9.8 Chemistry: Recent Labs 03/07/2544903/07/2592703/08/2563903/09/25 0738 NA 144 -- 142 140 K 3.5* -- 3.5* 3.6* CL 107 -- 103 101 CO2 28 -- 28 27 GLUCOSE 215* -- 237* 276* BUN 22 -- 13 10 CREATININE 0.6 -- 0.6 0.7 MG 1.8 -- 1.6 1.6 ANIONGAP 9 -- 11 12 LABGLOM >90 -- >90 >90 CALCIUM 8.5* -- 8.6 8.4* CAION -- 1.21 -- -- Recent Labs 03/08/25 0603/08/2563903/08/25 1104 03/08/25 1521 03/08/25200803/09/2538 03/09/25 0830 03/09/25 1128 AST -- 18 -- -- -- 18 -- -- ALT -- 16 -- -- -- 15 -- -- ALKPHOS -- 86 -- -- -- 75 -- -- BILITOT -- 0.8 -- -- -- 0.8 -- -- BILIDIR -- 0.3* -- -- -- -- -- -- POCGLU 210* -- 374* 405* 288* -- 259* 288* ABG: Lab Results Component Value Date/Time POCPH 7.353 03/05/2025 04:25 AM POCPCO2 50.8 03/05/2025 04:25 AM POCPO2 81.6 03/05/2025 04:25 AM POCHCO3 28.2 03/05/2025 04:25 AM PBEA 1.8 03/05/2025 04:25 AM HTSR2IFW 95.2 03/05/2025 04:25 AM FIO2 10.0 03/05/2025 04:25 AM Lab Results Component Value Date/Time SPECIAL Site: Urine 03/03/2025 05:08 PM Lab Results Component Value Date/Time CULTURE (A) 03/04/2025 04:27 PM ESCHERICHIA COLI HEAVY GROWTH Identification by MALDI-TOF CULTURE No anaerobic organisms isolated at 5 days. 03/04/2025 04:27 PM Radiology: [place] UGI Result Date: 03/05/2025 No clear fluoroscopic evidence for extravasation in the region of the duodenum/duodenal leak withinthe limitations of the study. XR ABDOMEN FOR NG/OG/NE TUBE PLACEMENT Result Date: 03/05/2025 Appropriate positioning of enteric tube. XR CHEST PORTABLE Result Date: 03/05/2025 1. Right IJ central venous catheter tip terminates in the region of the cavoatrial junction/proximal right atrium. 2. No pneumothorax. 3. Mild increased perihilar airspace disease, which may represent asymmetric edema or atelectasis. 4. Background cardiomegaly with vascular congestion and prominentinterstitial change suggestive of edema. IR CHOLECYSTOSTOMY PERCUTANEOUS COMPLETE Result Date: 03/04/2025 Successful ultrasound fluoroscopic guided placement of 8 [place] cholecystostomy tube. US ABDOMEN LIMITED Specify organ? LIVER, GALLBLADDER Result Date: 03/03/2025 Findings described above could represent acute cholecystitis as reported on concurrent MRCP although sonographic Henley sign is reportedly negative. Consider correlation with CT given the suspected perforation on MRCP. MRI ABDOMEN WO CONTRAST MRCP Result Date: 03/03/2025 1. Findings suspicious for perforated acute cholecystitis. 2. 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 Recommend follow-up pancreas protocol MRI in 2 years. XR CHEST PORTABLE Result Date: 03/03/2025 Findings suggest congestive heart failure Physical Examination: Physical Exam Constitutional: General: She is not in acute distress. Appearance: Normal appearance. She is obese. HENT: Head: Normocephalic and atraumatic. Mouth/Throat: Mouth: Mucous membranes are moist. Eyes: General: No scleral icterus. Extraocular Movements: Extraocular movements intact. Pupils: Pupils are equal, round, and reactive to light. Cardiovascular: Rate and Rhythm: Normal rate and regular rhythm. Heart sounds: No murmur heard. Pulmonary: Effort: No respiratory distress. Breath sounds: No wheezing or rales. Abdominal: General: There is no distension. Tenderness: There is no abdominal tenderness. There is no rebound. Musculoskeletal: General: No tenderness or deformity. Cervical back: Normal range of motion. No rigidity or tenderness. Right lower leg: No edema. Left lower leg: No edema. Skin: Coloration: Skin is not jaundiced. Findings: No lesion or rash. Neurological: General: No focal deficit present. Mental Status: She is alert and oriented to person, place, and time. Sensory: No sensory deficit. Motor: No weakness. Psychiatric: Mood and Affect: Mood normal. Assessment: Hospital Problems Last Modified POA * (Principal) Acute cholecystitis 03/03/2025 Yes Troponin level elevated 03/05/2025 Yes Diabetes mellitus (HCC) 03/08/2025 Yes Hypertension 03/08/2025 Yes Hypotension due to hypovolemia 03/04/2025 Yes Hyperlipidemia 03/08/2025 Yes Plan: Acute cholecystitis present on this admission status post percutaneous cholecystectomy tube with cultures positive for Escherichia coli remain on IV Rocephin, will switch to oral at time of discharge, general surgery signing off, plan for intervanl cholecystectomy in 6 weeks Diabetes with hyperglycemia, continue insulin sliding scale, Lantus, will add insulin lispro with meals will continue diabetic diet and glucose check Shock present on admission resolving weaned off pressor currently on midodrine and will wean off astolerated Correct electrolyte abnormalities Elevated troponin. Present on this admission status post cardiac evaluation, echo with preserved EFand normal wall motion, cardiology planning to do stress test as an outpatient Obese continue to encourage lifestyle modification DVT prophylaxis PT-OT Consider discharge patient tomorrow morning if blood sugar well-controlled Piter Weems MD 03/09/2025 11:49 AM * Mirna Lozano RCP - 03/09/2025 8:55 AM EDT Patient has refused bipap at this time. * Delisa Groves PT - 03/08/2025 9:33 AM EDT Facility/Department: [facility] 3- MICU Physical Therapy Initial Evaluation Patient Name: Tosha Mcneal : 1950 Date of Service: 03/08/2025 Presented to ER with pain, diarrhea for the last 2 weeks. Associated with cyclical fever not documented. Patient also says she experienced chest pain while having abdominal pain. Nonradiating, not associated with any diaphoresis or palpitations. She also endorsed associated nausea. Patient stated the diarrhea was watery not foul-smelling. She had apparently ate a cake before her symptoms worsenedafter which she presented to the ER. Patient also states she had no bowel movements for the last 4 days and had been passing little to no gas since then. Patient denied any cough blurring of vision, headache. Patient had initially presented with similar complaints [address] abdomen pelvis done showedenteritis and adenitis. Patient was supposedly discharged with pain medications only. In the ED at outside hospital she was noted to have mildly distended abdomen with decreased bowel sounds. She was noted to have a temperature of 99.8, requiring 5 L of oxygen which was weaned off to room air. Initial labs in the ED at outside hospital showed lactate of 2.4-2.7, WBC count of 15, hemoglobin 13.9, creatinine 3.53, BUN 59, anion gap of 15, troponin 403-443, BUN of 15,752. UA showed dark yellow clear urine with trace leukocyte esterase and large bacteria. Culture was sent. She was also noted to have a potassium of 3.1 however she was noted to be baseline hypokalemic. Patient was given IV Rocephin and given 2 L of IV normal saline bolus.EKG showed first-degree AV block. CT scan was obtained which showed acute cholecystitis, fatty infiltration of the liver, enlarged heart size with small pericardial effusion mild sigmoid: Diverticulosis. Patient was then switched to IV Zosyn and transferred to [address] ICU. Past Medical History: has a past medical history of Cancer (HCC), Diabetes mellitus (HCC), Hyperlipidemia, Hypertension, and Skin cancer of arm, right. Past Surgical History: has a past surgical history that includes Tonsillectomy; Tubal ligation; fracture surgery (Left); Carpal tunnel release (Right); Shoulder arthroscopy (Left, 2019); cyst removal; Eye surgery (Left); Total knee arthroplasty (Left, 10/03/2023); Total knee arthroplasty (Left, 10/03/2023); and IR CHOLECYSTOSTOMY PERCUTANEOUS COMPLETE (03/04/2025). Discharge Recommendations Further therapy recommended at discharge. PT Equipment Recommendations Equipment Needed: No Assessment Pt cooperative, very tired (states she hasn't slept since being in the hospital), agreeable to participate with PT. Sit to stand SBA verbal cues to push up from chair; gait rwalker 90'x2 seated rest break in between SBA+1, limited by fatigue. Body Structures, Functions, Activity Limitations Requiring Skilled Therapeutic Intervention: Decreased functional mobility , Decreased strength, Decreased endurance, Decreased balance, Decreased posture Therapy Prognosis: Good Decision Making: Medium Complexity Requires PT Follow-Up: Yes Activity Tolerance Activity Tolerance: Patient limited by fatigue, Patient limited by endurance Safety Devices Type of Devices: Call light within reach, Gait belt, Patient at risk for falls, Left in chair, Nurse notified (pt in chair, feet dependent at end of PT session) Restraints Restraints Initially in Place: No AM-PAC AM-PAC Mobility without Stair Climbing Inpatient How much difficulty turning over in bed?: A Little How much difficulty sitting down on / standing up from a chair with arms?: A Little How much difficulty moving from lying on back to sitting on side of bed?: A Little How much help from another person moving to and from a bed to a chair?: A Little How much help from another person needed to walk in hospital room?: A Little AM-PAC Inpatient Mobility without Stair Climbing Raw Score : 15 AM-PAC Inpatient without Stair Climbing T-Scale Score : 43.03 Mobility Inpatient CMS 0-100% Score: 47.43 Mobility Inpatient without Stair CMS G-Code Modifier : CK Restrictions/Precautions Restrictions/Precautions Restrictions/Precautions: Surgical Protocols, Fall Risk (transhepatic cholecystectomy tube R side (SHILA)) Activity Level: Up as Tolerated, Up with Assist Required Braces or Orthoses?: No Position Activity Restriction Other Position/Activity Restrictions: s/p percutaneous cholostomy 03/05 Subjective General Patient assessed for rehabilitation services?: Yes Response To Previous Treatment: Not applicable Family/Caregiver Present: Yes (spouse) Follows Commands: Within Functional Limits Other (Comment): pt c/o 03/16 pain at cholecystostomy tube site; agreeable to participate with PT inspite of pain Subjective Subjective: c/o not having slept since being hospitalized--RN aware Home Setup/Prior Level of Function Social/Functional History Lives With: Spouse Type of Home: House Home Layout: One level Home Access: Ramped entrance Bathroom Shower/Tub: Walk-in shower, Shower chair with back Bathroom Toilet: Handicap height Bathroom Equipment: Shower chair, Grab bars in shower, Hand-held shower Bathroom Accessibility: Accessible Home Equipment: Walker - Rolling, Wheelchair - Manual, Rollator Has the patient had two or more falls in the past year or any fall with injury in the past year?: No Receives Help From: ( available 30/05 if needed, granddaughter) Prior Level of Assist for ADLs: Independent Prior Level of Assist for Homemaking: Independent Homemaking Responsibilities: Yes (shares with ) Prior Level of Assist for Ambulation: Independent household ambulator, with or without device, Independent community ambulator, with or without device (pt normally doesn't use DME at baseline; occasionally uses when she knows she's going to have to walk a long distance outside) Prior Level of Assist for Transfers: Independent Active Electrician Manager: Yes Mode of Transportation: Truck 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[employer], 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; 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 Leisure & Hobbies: crafting, golfing Vision/Hearing Vision Vision: Impaired Vision Exceptions: Wears glasses at all times Hearing Hearing: Within functional limits Objective Orientation Overall Orientation Status: Within Normal Limits Orientation Level: Oriented X4 Cognition Overall Cognitive Status: WFL Cognition Comment: flat affect--pt states she's very tired and hasn't gotten much sleep since beinghospitalized (March 03) Observation/Palpation Posture: Good PROM RLE (degrees) RLE PROM: WFL PROM LLE (degrees) LLE PROM: WFL PROM RUE (degrees) RUE PROM: WFL PROM LUE (degrees) LUE PROM: WFL Strength RLE Strength RLE: Exception--hip grossly 3+/5; knee distal WFL Strength LLE Strength LLE: Exception--hip grossly 3/5; knee distal WFL Strength RUE Strength RUE: Exception--shoulder grossly 3/5; elbow distal WFL Strength LUE Strength LUE: WFL Mobility Bed mobility Bed Mobility Comments: pt up in chair upon PT arrival and retired to chair at end of PT session; ptstates bed is very uncomfortable--RN notified Transfers Sit to Stand: Stand by assistance (verbal cues for proper hand placement) Stand to Sit: Stand by assistance (verbal cues for proper hand placement) Stand Pivot Transfers: Stand by assistance Ambulation Surface: Level tile Device: Rolling Walker Other Apparatus: O2 (high flow nasal canula 6L) Assistance: Stand by assistance Gait Deviations: Slow Karin;Decreased step length;Decreased step height;Decreased arm swing Distance: 15'x1; 90'x2 seated rest break in between each walk Stairs/Curb Stairs?: No Balance Balance Posture: Good Sitting - Static: Good Sitting - Dynamic: Good Standing - Static: Fair Standing - Dynamic: Fair;- Comments: when standing w/o device pt felt unsteady, wanted rwalker to hold onto Exercise PT Exercises Exercise Treatment: ankle pumps A/AROM Exercises: AROM x 4 Breathing Techniques: use of IS--pt tends to take ballistic breaths in--reviewed slow/deep breathing technique--pt will need continued instruction Patient Education Patient Education Education Given To: Patient;Family Education Provided: Role of Therapy;Plan of Care;Home Exercise Program;Transfer Training;Precautions;Mobility Training;Energy Conservation;Family Education;Fall Prevention Strategies Education Provided Comments: educated pt re: importance of mobilizing/exercising for increased strength; pt reluctantly agreeable (very tired); also educated re: proper use of IS--pt needs continued instruction Education Method: Demonstration;Verbal;Teach Back Barriers to Learning: None Education Outcome: Verbalized understanding;Continued education needed Plan Physical Therapy Plan General Plan: (5-6 visits weekly) Current Treatment Recommendations: Strengthening, ROM, Balance training, Functional mobility training, Transfer training, Endurance training, Gait training, Home exercise program, Safety education & training, Patient/Caregiver education & training, Equipment evaluation, education, & proc urement, Positioning, Therapeutic activities Goals Patient Goals Patient Goals : sleep, get stronger, get to my granddaughters graduation March 16 Short Term Goals Time Frame for Short Term Goals: 12 visits Short Term Goal 1: independent bed mobility Short Term Goal 2: independent transfers Short Term Goal 3: independent gait with device vs none x 200' Short Term Goal 4: independent use of IS with proper technique Minutes PT Individual Minutes Time In: 0815 Time Out: 09 Minutes: 55 Time Code Minutes Timed Code Treatment Minutes: 38 Minutes * Darlyn Louis MD - 03/08/2025 7:29 AM EDT INTENSIVE CARE UNIT Resident Physician Progress Note Patient - Tosha Mcneal Date of Admission - 03/03/2025 11:22 AM Date of Evaluation - 03/08/2025 Room and Bed Number - 3008/3008-01 Hospital Day - 5 HPI: History was obtained from chart review and the patient. Tosha Mcneal is a 74 y.o. with PMH of -Diabetes melitis type II on insulin - Hypertension -Hyperlipidemia - Gout Presented to ER with pain, diarrhea for the last 2 weeks. Associated with cyclical fever not documented. Patient also says she experienced chest pain while having abdominal pain. Nonradiating, not associated with any diaphoresis or palpitations. She also endorsed associated nausea. Patient stated the diarrhea was watery not foul-smelling. She had apparently ate a cake before her symptoms worsenedafter which she presented to the ER. Patient also states she had no bowel movements for the last 4 days and had been passing little to no gas since then. Patient denied any cough blurring of vision, headache. Patient had initially presented with similar complaints [address] abdomen pelvis done showedenteritis and adenitis. Patient was supposedly discharged with pain medications only. In the ED at outside hospital she was noted to have mildly distended abdomen with decreased bowel sounds. She was noted to have a temperature of 99.8, requiring 5 L of oxygen which was weaned off to room air. Initial labs in the ED at outside hospital showed lactate of 2.4-2.7, WBC count of 15, hemoglobin 13.9, creatinine 3.53, BUN 59, anion gap of 15, troponin 403-443, BUN of 15,752. UA showed dark yellow clear urine with trace leukocyte esterase and large bacteria. Culture was sent. She was also noted to have a potassium of 3.1 however she was noted to be baseline hypokalemic. Patient was given IV Rocephin and given 2 L of IV normal saline bolus.EKG showed first-degree AV block. CT scan was obtained which showed acute cholecystitis, fatty infiltration of the liver, enlarged heart size with small pericardial effusion mild sigmoid: Diverticulosis. Patient was then switched to IV Zosyn and transferred to [address] ICU. Patient was subsequently brought to [address] ICU Upon admission, pt was A&O x 4, normotensive, with normal heart rate and afebrile. SUBJECTIVE: OVERNIGHT EVENTS: No acute events overnight. S/p day #4 of percutaneous cholostomy. Patient is being off pressor support. Feeding Diet: Regular Fluids: None Family: Updated Analgesic: Dilaudid 0.5mg Q6PRN and Tylenol 650mg Q6 PRN Sedation: N/A Thrombo-prophylaxis: [x] Enoxaparin, [] Unfract. Heparin Subcutaneously, [] EPC Cuffs Mobility: As tolerated Heads up: At 30 degrees Ulcer prophylaxis: [x] PPI Agent 40 twice daily, [] H8Oanxr, [] Sucralfate, [] Other: Glycemic control: Medium dose corrective algorithm Spontaneous breathing trial: N/A Bowel regimen/urine output:715 cc (1cc/kg/hr) Indwelling catheter/lines: none De-escalation: Mon removal. on ceftriaxone. Lovenox 30mg BID Gram culture from drainage grew gram negative rods PLAN FOR TODAY: Remain off pressor support Lovenox 30mg BID regular diet K is pending Transfer out of the unit Lantus up to 15 from 10 Consults: General Surgery: Ok to initiate diet Imaging FL UGI - No clear fluoroscopic evidence for extravasation in the region of the duodenum/duodenal leak within the limitations of the study. XR abdomen - Appropriate positioning of enteric tube. Chest x-ray suggestive of congestive heart failure. MRI abdomen without contrast 1. Findings suspicious for perforated acute cholecystitis. 2. 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 Recommend follow-up pancreas protocol MRI in 2 years 3. Ultrasound abdomen: Distended gallbladder containing sludge and stones negative Henley sign. Findings could represent acute cholecystitis. Consider correlation with CT. AWAKE & FOLLOWING COMMANDS: [] No [x] Yes SECRETIONS Amount: [] Small [] Moderate [] Large [x] None Color: [] White [] Colored [] Bloody SEDATION: RAAS Score: [] Propofol gtt [] Versed gtt [] Ativan gtt [x] No Sedation PARALYZED: [x] No [] Yes VASOPRESSORS: [x] No [] Yes [] Levophed [] Dopamine [] Vasopressin [] Dobutamine [] Phenylephrine [] Epinephrine OBJECTIVE: VITAL SIGNS: BP: Systolic (24hrs), Av , Min:119 , Max:168 Diastolic (24hrs), Av, Min:40, Max:120 HR: Pulse Av.5 Min: 59 Max: 80 Tmax over 24 hours: Temp (24hrs), Av F (36.7 C), Min:97.5 F (36.4 C), Max:98.4 F (36.9 C) RR Resp Av.4 Min: 12 Max: 30 Sat O2% SpO2 Av.9 % Min: 94 % Max: 100 % Weight Wt Readings from Last 3 Encounters: 03/08/25 103 kg (227 lb 1.2 oz) 10/03/23 96.2 kg (212 lb) 09/08/23 98.3 kg (216 lb 12.8 oz) Patient Vitals for the past 12 hrs: BP Temp Temp src Pulse Resp SpO2 Weight 03/08/25 0501 -- -- -- -- -- -- 103 kg (227 lb 1.2 oz) 03/08/25 0500 -- -- -- 61 17 97 % -- 03/08/25 0400 (!) 159/67 98.4 F (36.9 C) Oral 64 21 98 % -- 03/08/25 0325 -- -- -- 61 17 96 % -- 03/08/25 0300 (!) 162/57 -- -- 65 16 97 % -- 03/08/25 0200 (!) 162/55 -- -- 62 14 98 % -- 03/08/25 0100 (!) 155/55 -- -- 68 14 98 % -- 03/08/25 0000 (!) 168/120 98.4 F (36.9 C) Axillary 65 15 98 % -- 03/07/25 2300 (!) 150/56 -- -- 59 17 96 % -- 03/07/25 2200 (!) 164/64 -- -- 68 19 99 % -- 03/07/25 2100 (!) 152/107 -- -- 67 19 96 % -- 03/07/25 2000 (!) 152/54 98 F (36.7 C) Oral 68 22 94 % -- 03/07/25 1938 -- -- -- 70 20 95 % -- Physical Exam Constitutional: Appearance: She is obese. She is ill-appearing. HENT: Head: Normocephalic and atraumatic. Cardiovascular: Rate and Rhythm: Normal rate and regular rhythm. Pulses: Normal pulses. Heart sounds: Normal heart sounds. No murmur heard. No gallop. Pulmonary: Effort: Pulmonary effort is normal. No respiratory distress. Breath sounds: Normal breath sounds. No stridor. No wheezing or rhonchi. Abdominal: General: Bowel sounds are decreased. There is distension. Tenderness: There is abdominal tenderness. There is right CVA tenderness and guarding. Musculoskeletal: General: Normal range of motion. Right lower leg: No edema. Left lower leg: No edema. Skin: General: Skin is warm and dry. Coloration: Skin is not jaundiced. Findings: No lesion or rash. Neurological: General: No focal deficit present. Mental Status: She is oriented to person, place, and time. Mental status is at baseline. Psychiatric: Mood and Affect: Mood normal. Thought Content: Thought content normal. SUPPORT DEVICES: [] Ventilator [] BIPAP [x] Nasal Cannula [] Room Air Additional Respiratory Assessments Pulse: 61 Respirations: 17 SpO2: 97 % ASSESSMENT: Patient Active Problem List Diagnosis Date Noted Troponin level elevated 03/05/2025 Hypotension due to hypovolemia 03/04/2025 Acute cholecystitis 03/03/2025 S/P total knee replacement using cement, left 10/03/2023 Diabetes mellitus (HCC) 10/03/2023 Hypertension 10/03/2023 PLAN: WEAN PER PROTOCOL: [] No [] Yes [x] N/A ICU PROPHYLAXIS: Stress ulcer: [x] PPI Agent [] G0Pbifo [] Sucralfate [] Other: VTE: [] Enoxaparin [] Unfract. Heparin Subcut [x] EPC Cuffs NUTRITION: [] NPO [] Tube Feeding (Specify: ) [] TPN [x] PO HOME MEDS RECONCILED: [] No [x] Yes CONSULTATION NEEDED: [x] No [] Yes FAMILY UPDATED: [] No [x] Yes TRANSFER OUT OF ICU: [x] No [] Yes Additional Assessment: Principal Problem: Acute cholecystitis Active Problems: Troponin level elevated Hypotension due to hypovolemia Resolved Problems: * No resolved hospital problems. * Acute cholecystitis Duodenal perforation Gallbladder perforation Plan: Neuro: - Dx: No neurological abnormality - Mental status: Alert oriented x 4 - Pain control: Dilaudid 0.5 Q6 hrly as needed Resp: - Chest x-ray showed congestive heart failure - Abdomen x-ray from 03/05 showed appropriate positioning of enteric tube. - Patient requiring 8 L of Hi- AYAKA oxygen. At home does not use any oxygen. RR Resp Av.4 Min: 12 Max: 30 Sat O2% SpO2 Av.9 % Min: 94 % Max: 100 % -Will continue to monitor CV: BP: Systolic (24hrs), Av , Min:119 , Max:168 Diastolic (24hrs), Av, Min:40, Max:120 HR: Pulse Av.5 Min: 59 Max: 80 - EKG: First-degree AV block - Echo: EF 60% - Patient follows up with cardiology outpatient.. Patient says when she follows only for hypertension - Patient takes Crestor, amlodipine, furosemide, Aldactone, Coreg, lisinopril, aspirin at home. GI/Nutrition: - Dx: Acute cholecystitis, diarrhea for the last 2 weeks, perforated viscus. - GI prophylaxis: Protonix - General Surgery consulted. -S/p percutaenous cholostomy 03/05/25 Diet Regular /Fluids/Electrolytes: - Dx: BOO. - BUN/Cr: pending - Na/K: pending -U/O 800 cc (1cc/kg/hr) ID: Acute cholecystitis Temp (24hrs), Av F (36.7 C), Min:97.5 F (36.4 C), Max:98.4 F (36.9 C) Culture shows E coli Ceftriaxone 1g Q24hrs Endo: Type II DM MDSS Lantus was added yesterday 03/07 Lantus up to 15 from 10 BG 200-269 MSK: PT/OT Prophylaxis: DVT- Lovenox 30mg BID Dispo [] Remain in ICU [x] Transfer out of ICU CODE STATUS: Full Code Darlyn Louis MD Emergency Medicine Resident PGY-1 03/08/2025 7:29 AM Cosigned by Shahriar Ricks MD at 03/08/2025 3:54 PM EDT Associated attestation - Shahriar Ricks MD - 03/08/2025 3:54 PM EDT Attending Physician Statement I have discussed the case of Tosha Mcneal, including pertinent history and exam findings with the resident/fellow/medical student/INTELLECTUAL PROPERTY MANAGER/PA. I have seen and examined the patient and the hernandez elements of the encounter have been performed by me. I agree with the assessment, plan and orders as documented by the resident/fellow/medical student/INTELLECTUAL PROPERTY MANAGER/PA With changes made to the note as needed. Pt was seen during rounds. Review of Systems: In addition to the pertinent positives and negatives as stated within HPI and the review of systemsas documented in their notes, all other systems were reviewed when able to and are reported negative. Patient is on 2 L oxygen by nasal cannula Used BiPAP Fluid balance is +2.5 L Supplement potassium for hypokalemia Blood sugars are increased, adjust insulin Anemia has resolved On Lovenox and proton pump inhibitor Patient can be transferred to stepdown ICU We will follow the patient from pulmonary standpoint Total critical care time caring for this patient with life threatening, unstable organ failure, including direct patient contact, management of life support systems, review of data including imaging and labs, discussions with other team members and physicians at least 30 Min so far today, excludingprocedures. Shahriar Ricks MD 03/08/2025 3:54 PM * Aniyah Dye OT - 03/07/2025 3:09 PM EDT Occupational Therapy Occupational Therapy Initial Evaluation Facility/Department: [address] Patient Name: Tosha Mcneal : 1950 Date of Service: 03/07/2025 Per chart: Tosha Mcneal is a 74 y.o. with PMH of -Diabetes melitis type II on insulin - Hypertension -Hyperlipidemia - Gout Presented to ER with pain, diarrhea for the last 2 weeks. Associated with cyclical fever not documented. Patient also says she experienced chest pain while having abdominal pain. Nonradiating, not associated with any diaphoresis or palpitations. She also endorsed associated nausea. Patient stated the diarrhea was watery not foul-smelling. She had apparently ate a cake before her symptoms worsenedafter which she presented to the ER. Patient also states she had no bowel movements for the last 4 days and had been passing little to no gas since then. Patient denied any cough blurring of vision, headache. Patient had initially presented with similar complaints [address] abdomen pelvis done showedenteritis and adenitis. Patient was supposedly discharged with pain medications only. In the ED at outside hospital she was noted to have mildly distended abdomen with decreased bowel sounds. She was noted to have a temperature of 99.8, requiring 5 L of oxygen which was weaned off to room air. Initial labs in the ED at outside hospital showed lactate of 2.4-2.7, WBC count of 15, hemoglobin 13.9, creatinine 3.53, BUN 59, anion gap of 15, troponin 403-443, BUN of 15,752. UA showed dark yellow clear urine with trace leukocyte esterase and large bacteria. Culture was sent. She was also noted to have a potassium of 3.1 however she was noted to be baseline hypokalemic. Patient was given IV Rocephin and given 2 L of IV normal saline bolus.EKG showed first-degree AV block. CT scan was obtained which showed acute cholecystitis, fatty infiltration of the liver, enlarged heart size with small pericardial effusion mild sigmoid: Diverticulosis. Patient was then switched to IV Zosyn and transferred to [address] [facility]. Patient was subsequently brought to [address] ICU Upon admission, pt was A&O x 4, normotensive, with normal heart rate and afebrile. Past Medical History: has a past medical history of Cancer (HCC), Diabetes mellitus (HCC), Hyperlipidemia, Hypertension, and Skin cancer of arm, right. Past Surgical History: has a past surgical history that includes Tonsillectomy; Tubal ligation; fracture surgery (Left); Carpal tunnel release (Right); Shoulder arthroscopy (Left, 2019); cyst removal; Eye surgery (Left); Total knee arthroplasty (Left, 10/03/2023); Total knee arthroplasty (Left, 10/03/2023); and IR CHOLECYSTOSTOMY PERCUTANEOUS COMPLETE (03/04/2025). Discharge Recommendations Discharge Recommendations: Patient would benefit from continued therapy after discharge, 24 hour supervision or assist OT Equipment Recommendations Equipment Needed: Yes Mobility Devices: ADL Assistive Devices ADL Assistive Devices: Grab Bars - toilet, Sock-Aid Hard, Microfilm Operator, Walker Basket Assessment Performance deficits / Impairments: Decreased functional mobility ;Decreased endurance;Decreased ADL status;Decreased ROM;Decreased balance;Decreased strength Assessment: Pt agreed to occupational therapy evaluation with education provided on purpose and role of occupational therapy services in the acute care setting. OT facilitated assessing functional mobility and ADL performance to pt's tolerance this visit. Pt exhibited requiring minAx1 for functional sit<>stand transfers and CGA for functional mobility. Transfers/mobility completed utilizingRW. Greatest limitations exhibited during these activities include endurance/activity tolerance andgeneralized weakness. OT facilitated toileting task and standing grooming task and pt required CGA to complete, see below for more details. Based on the patients occupational performance throughout this evaluation, it is expected they are to require continued skilled OT services during their acute hospitilization to increase safety and promote increased independence throughout ADLs, IADLs and functional mobility tasks. Pt is currently unsafe to return to their prior living arrangements without 24/7 assist/supervision to safely engage in all aspects of ADLs, IADLs and functional mobility tasks. Prognosis: Good Decision Making: Medium Complexity REQUIRES OT FOLLOW-UP: Yes Activity Tolerance Activity Tolerance: Patient limited by fatigue Safety Devices Type of Devices: Call light within reach;Gait belt;Left in chair;Nurse notified Restraints Restraints Initially in Place: No AM-PAC AM-PAC Daily Activity - Inpatient How much help is needed for putting on and taking off regular lower body clothing?: Total How much help is needed for bathing (which includes washing, rinsing, drying)?: A Lot How much help is needed for toileting (which includes using toilet, bedpan, or urinal)?: A Lot How much help is needed for putting on and taking off regular upper body clothing?: A Little How much help is needed for taking care of personal grooming?: A Little How much help for eating meals?: None AM-PAC Inpatient Daily Activity Raw Score: 15 AM-PAC Inpatient ADL T-Scale Score : 34.69 ADL Inpatient CMS 0-100% Score: 56.46 ADL Inpatient CMS G-Code Modifier : CK Restrictions/Precautions Restrictions/Precautions Activity Level: Up as Tolerated Required Braces or Orthoses?: No Position Activity Restriction Other Position/Activity Restrictions: s/p percutaneous cholostomy 03/05 O2 Device: High flow nasal cannula Subjective General Patient assessed for rehabilitation services?: Yes Family / Caregiver Present: Yes () Subjective Subjective: Pt pleasant and agreeable to OT/PT co-evaluation this date. General Comment Comments: Ok per RN to see pt. Pain Pre-Pain: 7 Post-Pain: 7 Pain Location: (back, abdomen, side) Pain Descriptor: Sore Home Setup/Prior Level of Function Social/Functional History Lives With: Spouse Type of Home: House Home Layout: One level Home Access: Ramped entrance Bathroom Shower/Tub: Walk-in shower;Shower chair with back Bathroom Toilet: Handicap height Bathroom Equipment: Shower chair;Grab bars in shower;Hand-held shower Bathroom Accessibility: Accessible Home Equipment: Walker - Rolling;Wheelchair - Manual;Rollator Has the patient had two or more falls in the past year or any fall with injury in the past year?: No Receives Help From: ( available 30/05 if needed, granddaughter) Prior Level of Assist for ADLs: Independent Prior Level of Assist for Homemaking: Independent Homemaking Responsibilities: Yes (shares with ) Prior Level of Assist for Ambulation: Independent household ambulator, with or without device;Independent community ambulator, with or without device (occasionally used walker for longer distances) Prior Level of Assist for Transfers: Independent Active Electrician Manager: Yes Mode of Transportation: Truck 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[employer], 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 Leisure & Hobbies: crafting, golfing Vision/Hearing Vision Vision: Impaired Vision Exceptions: Wears glasses at all times Hearing Hearing: Within functional limits BUE Assessment Gross Assessment AROM: Generally decreased, functional (some difficulty with LUE shoulder internal rotation due to pain) PROM: Within functional limits Strength: Generally decreased, functional (grossly 4-/5, 3+/5 shoulder flexion BUE) Coordination: Generally decreased, functional Tone: Normal Sensation: Intact (denies n/t) Hand Dominance: Right Objective Orientation Overall Orientation Status: Within Functional Limits Orientation Level: Oriented X4 Cognition Overall Cognitive Status: WFL Activities of Daily Living Feeding: Independent;Based on clinical judgement Grooming: Contact guard assistance Grooming Skilled Clinical Factors: standing at sink, pt washed hands at CGA, RW and counter support UE Bathing: Minimal assistance;Based on clinical judgement LE Bathing: Moderate assistance;Based on clinical judgement UE Dressing: Minimal assistance;Based on clinical judgement LE Dressing: Maximum assistance;Based on clinical judgement Putting On/Taking Off Footwear: Dependent/Total Putting On/Taking Off Footwear Skilled Clinical Factors: seated in chair, pt required TA to adjust B musical instrument supervisor socks Toileting: Maximum assistance Toileting Skilled Clinical Factors: pt required CGA for toilet transfer with RW and unilateral support on R grab bar, required TA to complete lisa hygiene. Balance Balance Sitting: Intact;Without support (pt seated in recliner chair and on toilet ~20 minutes total, SBA-SUP overall.) Standing: Intact;With support (pt standing with RW support at CGA for safety, completed grooming atsink CGA ~5 minutes total, noting decreased endurance) Transfers/Mobility Bed mobility Bed Mobility Comments: DALJIT due to pt beginning and ending in bedside chair Transfers Sit to stand: Minimal assistance Stand to sit: Contact guard assistance Transfer Comments: completed from recliner chair x2 trials initially Mike to stand progressing to CGA overall at RW, VC for hand placement Toilet Transfers Toilet - Technique: Ambulating Equipment Used: Standard toilet Toilet Transfer: Contact guard assistance Toilet Transfers Comments: completed with RW and unilateral support on R grab bar to stand with good hand placement Functional Mobility: Contact guard assistance Functional Mobility Skilled Clinical Factors: completed short household distances within room to/from bathroom with RW, noted decreased endurance overall and pt reporting weakness in BLE Patient Education Patient Education Education Given To: Patient;Family Education Provided: Role of Therapy;Plan of Care;ADL Adaptive Strategies;Transfer Training;Fall Prevention Strategies;Equipment Education Provided Comments: Educated pt on role of OT, POC, safety awareness during functional mobility/transfers, use of grab bar in bathroom for safety with toilet transfers. Education Method: Verbal Barriers to Learning: None Education Outcome: Demonstrated understanding;Verbalized understanding;Continued education needed Goals Short Term Goals Time Frame for Short Term Goals: By discharge Short Term Goal 1: Pt will complete UB BADLs at IND with good safety and use of AE/DME/Modified techniques as needed. Short Term Goal 2: Pt will complete LB BADLs at Mike with good safety and use of AE/DME/Modified techniques as needed. Short Term Goal 3: Pt will complete functional mobility and transfers from all surfaces at SUP withgood safety and use of LRAD. Short Term Goal 4: Pt will tolerate static/dynamic standing 12+ minutes at SUP to complete functional activity of choice to improve safety and independence in self-care and functional tasks. Short Term Goal 5: Pt will actively engage in 15+ minutes of therapeutic exercise and functional activity to improve safety and independence in self-care and functional tasks. Short Term Goal 6: Pt will verbalize/demo good understanding of home safety/fall prevention, energyconservation, and non-pharmaceutical pain debt management counselor to improve overall independence in functional tasks. Short Term Goal 7: Pt will engage in and demo good understanding of BUE HEP targeting strength and AROM to improve overall safety and independence in self- care and functional tasks. Plan Occupational Therapy Plan Times Per Week: 4-5x/wk Current Treatment Recommendations: Strengthening, ROM, Balance training, Functional mobility training, Endurance training, Pain management, Safety education & training, Patient/Caregiver education & training, Equipment evaluation, education, & procurement, Self-Care / ADL, Home management training, Coordination training Minutes OT Individual Minutes Time In: 1355 Time Out: 1438 Minutes: 43 Time Code Minutes Timed Code Treatment Minutes: 23 Minutes * Darlyn Louis MD - 03/07/2025 7:24 AM EDT INTENSIVE CARE UNIT Resident Physician Progress Note Patient - Tosha Mcneal Date of Admission - 03/03/2025 11:22 AM Date of Evaluation - 03/07/2025 Room and Bed Number - 3008/3008- Hospital Day - 4 HPI: History was obtained from chart review and the patient. Tosha Mcneal is a 74 y.o. with PMH of -Diabetes melitis type II on insulin - Hypertension -Hyperlipidemia - Gout Presented to ER with pain, diarrhea for the last 2 weeks. Associated with cyclical fever not documented. Patient also says she experienced chest pain while having abdominal pain. Nonradiating, not associated with any diaphoresis or palpitations. She also endorsed associated nausea. Patient stated the diarrhea was watery not foul-smelling. She had apparently ate a cake before her symptoms worsenedafter which she presented to the ER. Patient also states she had no bowel movements for the last 4 days and had been passing little to no gas since then. Patient denied any cough blurring of vision, headache. Patient had initially presented with similar complaints 4 days ago. A CT abdomen pelvis done showedenteritis and adenitis. Patient was supposedly discharged with pain medications only. In the ED at outside hospital she was noted to have mildly distended abdomen with decreased bowel sounds. She was noted to have a temperature of 99.8, requiring 5 L of oxygen which was weaned off to room air. Initial labs in the ED at outside hospital showed lactate of 2.4-2.7, WBC count of 15, hemoglobin 13.9, creatinine 3.53, BUN 59, anion gap of 15, troponin 403-443, BUN of 15,752. UA showed dark yellow clear urine with trace leukocyte esterase and large bacteria. Culture was sent. She was also noted to have a potassium of 3.1 however she was noted to be baseline hypokalemic. Patient was given IV Rocephin and given 2 L of IV normal saline bolus.EKG showed first-degree AV block. CT scan was obtained which showed acute cholecystitis, fatty infiltration of the liver, enlarged heart size with small pericardial effusion mild sigmoid: Diverticulosis. Patient was then switched to IV Zosyn and transferred to [address] [facility]. Patient was subsequently brought to [address] ICU Upon admission, pt was A&O x 4, normotensive, with normal heart rate and afebrile. SUBJECTIVE: OVERNIGHT EVENTS: No acute events overnight. S/p day #3 of percutaneous cholostomy. Patient is being off pressor support. Feeding Diet: Regular Fluids: None Family: Updated Analgesic: Dilaudid 0.5mg Q6PRN and Tylenol 650mg Q6 PRN Sedation: N/A Thrombo-prophylaxis: [x] Enoxaparin, [] Unfract. Heparin Subcutaneously, [] EPC Cuffs Mobility: As tolerated Heads up: At 30 degrees Ulcer prophylaxis: [x] PPI Agent 40 twice daily, [] [id number], [] Sucralfate, [] Other: Glycemic control: Medium dose corrective algorithm Spontaneous breathing trial: N/A Bowel regimen/urine output:715 cc (1cc/kg/hr) Indwelling catheter/lines: Mon catheter De-escalation: Mon removal. Transition from zosyn to ceftriaxone. Initiate Lovenox 30mg BID Gram culture from drainage grew gram negative rods PLAN FOR TODAY: Remain off pressor support Lovenox 30mg BID D/c mon D/c zosyn, initiate ceftriaxone. Initiate regular diet Replace K Consults: General Surgery: Ok to initiate diet Imaging [place] UGI - No clear fluoroscopic evidence for extravasation in the region of the duodenum/duodenal leak within the limitations of the study. XR abdomen - Appropriate positioning of enteric tube. Chest x-ray suggestive of congestive heart failure. MRI abdomen without contrast 1. Findings suspicious for perforated acute cholecystitis. 2. 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 Recommend follow-up pancreas protocol MRI in 2 years 3. Ultrasound abdomen: Distended gallbladder containing sludge and stones negative Henley sign. Findings could represent acute cholecystitis. Consider correlation with CT. AWAKE & FOLLOWING COMMANDS: [] No [x] Yes SECRETIONS Amount: [] Small [] Moderate [] Large [x] None Color: [] White [] Colored [] Bloody SEDATION: RAAS Score: [] Propofol gtt [] Versed gtt [] Ativan gtt [x] No Sedation PARALYZED: [x] No [] Yes VASOPRESSORS: [x] No [] Yes [] Levophed [] Dopamine [] Vasopressin [] Dobutamine [] Phenylephrine [] Epinephrine OBJECTIVE: VITAL SIGNS: BP: Systolic (24hrs), Av , Min:105 , Max:157 Diastolic (24hrs), Av, Min:30, Max:88 HR: Pulse Av.4 Min: 53 Max: 76 Tmax over 24 hours: Temp (24hrs), Av.7 F (36.5 C), Min:97.3 F (36.3 C), Max:98 F (36.7 C) RR Resp Av.3 Min: 13 Max: 28 Sat O2% SpO2 Av.3 % Min: 93 % Max: 99 % Weight Wt Readings from Last 3 Encounters: 03/07/25 103.1 kg (227 lb 4.7 oz) 10/03/23 96.2 kg (212 lb) 09/08/23 98.3 kg (216 lb 12.8 oz) Patient Vitals for the past 12 hrs: BP Temp Temp src Pulse Resp SpO2 Weight 03/07/25 0700 (!) 149/47 -- -- 67 17 96 % -- 03/07/25 0600 (!) 155/55 -- -- 53 19 94 % 103.1 kg (227 lb 4.7 oz) 03/07/25 0500 (!) 142/38 -- -- 61 14 98 % -- 03/07/25 0400 (!) 107/30 97.7 F (36.5 C) Axillary 56 15 98 % -- 03/07/25 0325 -- -- -- 59 16 97 % -- 03/07/25 0300 (!) 105/36 -- -- 57 16 96 % -- 03/07/25 0210 -- -- -- -- 17 -- -- 03/07/25 0200 (!) 132/43 -- -- 59 15 95 % -- 03/07/25 0100 (!) 149/88 -- -- 66 17 97 % -- 03/07/25 0000 (!) 141/41 98 F (36.7 C) Axillary 68 18 98 % -- 03/06/25 2358 -- -- -- 69 19 98 % -- 03/06/25 2300 -- -- -- 76 -- 95 % -- 03/06/25 2200 (!) 137/34 -- -- 64 18 98 % -- 03/06/25 2100 (!) 148/45 -- -- 62 21 95 % -- 03/06/252050 -- -- -- 72 25 95 % -- 03/06/251999 (!) 154/41 97.7 F (36.5 C) Axillary 61 18 98 % -- Physical Exam Constitutional: Appearance: She is obese. She is ill-appearing. HENT: Head: Normocephalic and atraumatic. Cardiovascular: Rate and Rhythm: Normal rate and regular rhythm. Pulses: Normal pulses. Heart sounds: Normal heart sounds. No murmur heard. No gallop. Pulmonary: Effort: Pulmonary effort is normal. No respiratory distress. Breath sounds: Normal breath sounds. No stridor. No wheezing or rhonchi. Abdominal: General: Bowel sounds are decreased. There is distension. Tenderness: There is abdominal tenderness. There is right CVA tenderness and guarding. Musculoskeletal: General: Normal range of motion. Right lower leg: No edema. Left lower leg: No edema. Skin: General: Skin is warm and dry. Coloration: Skin is not jaundiced. Findings: No lesion or rash. Neurological: General: No focal deficit present. Mental Status: She is oriented to person, place, and time. Mental status is at baseline. Psychiatric: Mood and Affect: Mood normal. Thought Content: Thought content normal. SUPPORT DEVICES: [] Ventilator [] BIPAP [x] Nasal Cannula [] Room Air Additional Respiratory Assessments Pulse: 67 Respirations: 17 SpO2: 96 % ASSESSMENT: Patient Active Problem List Diagnosis Date Noted Troponin level elevated 03/05/2025 Hypotension due to hypovolemia 03/04/2025 Acute cholecystitis 03/03/2025 S/P total knee replacement using cement, left 10/03/2023 Diabetes mellitus (HCC) 10/03/2023 Hypertension 10/03/2023 PLAN: WEAN PER PROTOCOL: [] No [] Yes [x] N/A ICU PROPHYLAXIS: Stress ulcer: [x] PPI Agent [] [id number] [] Sucralfate [] Other: VTE: [] Enoxaparin [] Unfract. Heparin Subcut [x] EPC Cuffs NUTRITION: [] NPO [] Tube Feeding (Specify: ) [] TPN [x] PO HOME MEDS RECONCILED: [] No [x] Yes CONSULTATION NEEDED: [x] No [] Yes FAMILY UPDATED: [] No [x] Yes TRANSFER OUT OF ICU: [x] No [] Yes Additional Assessment: Principal Problem: Acute cholecystitis Active Problems: Troponin level elevated Hypotension due to hypovolemia Resolved Problems: * No resolved hospital problems. * Acute cholecystitis Duodenal perforation Gallbladder perforation Plan: Neuro: - Dx: No neurological abnormality - Mental status: Alert oriented x 4 - Pain control: Dilaudid 0.5 Q6 hrly as needed Resp: - Chest x-ray showed congestive heart failure - Abdomen x-ray from 03/05 showed appropriate positioning of enteric tube. - Patient requiring 8 L of Hi- AYAKA oxygen. At home does not use any oxygen. RR Resp Av.3 Min: 13 Max: 28 Sat O2% SpO2 Av.3 % Min: 93 % Max: 99 % -Will continue to monitor CV: BP: Systolic (24hrs), Av , Min:105 , Max:157 Diastolic (24hrs), Av, Min:30, Max:88 HR: Pulse Av.4 Min: 53 Max: 76 - EKG: First-degree AV block - Echo: EF 60% - Patient follows up with cardiology outpatient.. Patient says when she follows only for hypertension - Patient takes Crestor, amlodipine, furosemide, Aldactone, Coreg, lisinopril, aspirin at home. GI/Nutrition: - Dx: Acute cholecystitis, diarrhea for the last 2 weeks, perforated viscus. - GI prophylaxis: Protonix - General Surgery consulted. -S/p percutaenous cholostomy 03/05/25 Diet Regular /Fluids/Electrolytes: - Dx: BOO. - BUN/Cr: 22/0.6 - Na/K: 144/3.5 -U/O 716 cc (1cc/kg/hr) ID: Acute cholecystitis Temp (24hrs), Av.7 F (36.5 C), Min:97.3 F (36.3 C), Max:98 F (36.7 C) Culture shows E coli Ceftriaxone 1g Q24hrs Endo: Type II DM MDSS BG 200-300 MSK: PT/OT Prophylaxis: DVT- Lovenox 30mg BID Dispo [x] Remain in ICU [] Transfer out of ICU CODE STATUS: Full Code Darlyn Louis MD Emergency Medicine Resident PGY-1 03/07/2025 7:24 AM Cosigned by Shahriar Ricks MD at 03/07/2025 1:06 PM EDT Associated attestation - Shahriar Ricks MD - 03/07/2025 1:06 PM EDT Attending Physician Statement I have discussed the case of Tosha Mcneal, including pertinent history and exam findings with the resident/fellow/medical student/INTELLECTUAL PROPERTY MANAGER/PA. I have seen and examined the patient and the hernandez elements of the encounter have been performed by me. I agree with the assessment, plan and orders as documented by the resident/fellow/medical student/INTELLECTUAL PROPERTY MANAGER/PA With changes made to the note as needed. Pt was seen during rounds. Review of Systems: In addition to the pertinent positives and negatives as stated within HPI and the review of systemsas documented in their notes, all other systems were reviewed when able to and are reported negative. Patient came off the pressors Fluid balance is +3.6 L On 10 L of oxygen by nasal cannula Used BiPAP This really has helped her mentation Patient educated again about the importance of using NIV to help decrease carbon dioxide and improve her encephalopathy Supplement potassium for hypokalemia Blood sugars are increased, adjust insulin Will start Lantus insulin Discontinue central line On proton pump inhibitor Patient is on Lovenox We will follow the patient from pulmonary standpoint Total critical care time caring for this patient with life threatening, unstable organ failure, including direct patient contact, management of life support systems, review of data including imaging and labs, discussions with other team members and physicians at least 30 Min so far today, excludingprocedures. Shahriar Ricks MD 03/07/2025 1:05 PM * Anna Pyle APRN - [employer]STER[employer] PROGRAMMER - 03/06/2025 11:26 AM EDT Images from the original note were not included. PROGRESS NOTE PATIENT NAME: Tosha Mcneal DATE: 03/06/2025 HD: # 3 DIAGNOSIS AND PLAN perc choley - record output UGI negative, Ok for diet Gen surg will sign off Plan for intervanl cholecystectomy in 6 weeks, followup in office in 2 weeks Chief Complaint: no complaints SUBJECTIVE Seen and examined.Vss. non-tender. No nausea. Pressors weaning down on 1 of levo OBJECTIVE VITALS: Vitals: 03/06/25 1115 BP: Pulse: 60 Resp: 16 Temp: SpO2: 95% Physical Exam HENT: Head: Normocephalic and atraumatic. Right Ear: External ear normal. Left Ear: External ear normal. Mouth/Throat: Mouth: Mucous membranes are moist. Pharynx: Oropharynx is clear. Eyes: Extraocular Movements: Extraocular movements intact. Pupils: Pupils are equal, round, and reactive to light. Cardiovascular: Rate and Rhythm: Normal rate and regular rhythm. Pulses: Normal pulses. Pulmonary: Effort: Pulmonary effort is normal. No respiratory distress. Abdominal: General: There is no distension. Palpations: Abdomen is soft. Tenderness: There is abdominal tenderness. Musculoskeletal: General: No swelling or deformity. Normal range of motion. Cervical back: Normal range of motion and neck supple. Skin: Capillary Refill: Capillary refill takes less than 2 seconds. Coloration: Skin is not jaundiced. Neurological: General: No focal deficit present. Mental Status: She is alert and oriented to person, place, and time. LAB: CBC: Recent Labs 03/04/25 0349 03/05/25 0457 03/06/25 0808 WBC 11.7* 24.2* 14.7* HGB 12.7 11.9 11.3* HCT 41.8 40.8 39.3 MCV 91.9 95.3 96.1 PLT 164 155 152 BMP: Recent Labs 03/04/25 0349 03/04/25 1401 03/05/25 0457 03/06/25 0808 NA 141 -- 146* 143 K 3.5* 3.4* 4.0 3.3* CL 102 -- 108* 104 CO2 26 -- 22 29 BUN 56* -- 56* 40* CREATININE 1.5* -- 1.6* 1.0* GLUCOSE 191* -- 251* 319* RADIOLOGY: US ABDOMEN LIMITED Specify organ? LIVER, GALLBLADDER Result Date: 03/03/2025 Findings described above could represent acute cholecystitis as reported on concurrent MRCP although sonographic Henley sign is reportedly negative. Consider correlation with CT given the suspected perforation on MRCP. MRI ABDOMEN WO CONTRAST MRCP Result Date: 03/03/2025 1. Findings suspicious for perforated acute cholecystitis. 2. 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 Recommend follow-up pancreas protocol MRI in 2 years. XR CHEST PORTABLE Result Date: 03/03/2025 Findings suggest congestive heart failure VINCE BARNARD CNP 03/06/2025, 11:26 AM Cosigned by Rajni Cline MD at 03/09/2025 7:51 PM EDT Associated attestation - Rajni Cline MD - 03/09/2025 7:51 PM EDT Images from the original note were not included. Attending Note I have reviewed the above [facility] note(s). I have seen and examined the patient. I have discussed the findings, established the care plan and recommendations with the Advanced PracticeProvider. Chief Complaint: abd pain Exam: IR PCT draining brownish fluid Plan: Cont IR drain Follow up in clinic in 2 weeks Tentatively plan for interval cholecystectomy Rajni Cline MD * Kyle Mckinley MD - 03/06/2025 8:48 AM EDT INTENSIVE CARE UNIT Resident Physician Progress Note Patient - Tosha Mcneal Date of Admission - 03/03/2025 11:22 AM Date of Evaluation - 03/06/2025 Room and Bed Number - 3008/[id number] Hospital Day - 3 HPI: History was obtained from chart review and the patient. Tosha Mcneal is a 74 y.o. with PMH of -Diabetes melitis type II on insulin - Hypertension -Hyperlipidemia - Gout Presented to ER with pain, diarrhea for the last 2 weeks. Associated with cyclical fever not documented. Patient also says she experienced chest pain while having abdominal pain. Nonradiating, not associated with any diaphoresis or palpitations. She also endorsed associated nausea. Patient stated the diarrhea was watery not foul-smelling. She had apparently ate a cake before her symptoms worsenedafter which she presented to the ER. Patient also states she had no bowel movements for the last 4 days and had been passing little to no gas since then. Patient denied any cough blurring of vision, headache. Patient had initially presented with similar complaints [address] abdomen pelvis done showedenteritis and adenitis. Patient was supposedly discharged with pain medications only. In the ED at outside hospital she was noted to have mildly distended abdomen with decreased bowel sounds. She was noted to have a temperature of 99.8, requiring 5 L of oxygen which was weaned off to room air. Initial labs in the ED at outside hospital showed lactate of 2.4-2.7, WBC count of 15, hemoglobin 13.9, creatinine 3.53, BUN 59, anion gap of 15, troponin 403-443, BUN of 15,752. UA showed dark yellow clear urine with trace leukocyte esterase and large bacteria. Culture was sent. She was also noted to have a potassium of 3.1 however she was noted to be baseline hypokalemic. Patient was given IV Rocephin and given 2 L of IV normal saline bolus.EKG showed first-degree AV block. CT scan was obtained which showed acute cholecystitis, fatty infiltration of the liver, enlarged heart size with small pericardial effusion mild sigmoid: Diverticulosis. Patient was then switched to IV Zosyn and transferred to [address] [facility]. Patient was subsequently brought to [address] ICU Upon admission, pt was A&O x 4, normotensive, with normal heart rate and afebrile. SUBJECTIVE: OVERNIGHT EVENTS: No acute events overnight. S/p day #2 of percutaneous cholostomy. Patient is being weaned off pressor support. Feeding Diet: Regular Fluids: None Family: Updated Analgesic: Dilaudid 0.5mg Q6PRN and Tylenol 650mg Q6 PRN Sedation: N/A Thrombo-prophylaxis: [x] Enoxaparin, [] Unfract. Heparin Subcutaneously, [] EPC Cuffs Mobility: As tolerated Heads up: At 30 degrees Ulcer prophylaxis: [x] PPI Agent 40 twice daily, [] [id number], [] Sucralfate, [] Other: Glycemic control: Medium dose corrective algorithm Spontaneous breathing trial: N/A Bowel regimen/urine output: 2380cc (1cc/kg/hr) Indwelling catheter/lines: Mon catheter De-escalation: Mon removal. Transition from zosyn to ceftriaxone. Initiate Lovenox 30mg BID Gram culture from drainage grew gram negative rods PLAN FOR TODAY: Remain off pressor support Lovenox 30mg BID D/c mon D/c zosyn, initiate ceftriaxone. Initiate regular diet Consults: General Surgery: Ok to initiate diet Imaging [place] UGI - No clear fluoroscopic evidence for extravasation in the region of the duodenum/duodenal leak within the limitations of the study. XR abdomen - Appropriate positioning of enteric tube. Chest x-ray suggestive of congestive heart failure. MRI abdomen without contrast 1. Findings suspicious for perforated acute cholecystitis. 2. 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 Recommend follow-up pancreas protocol MRI in 2 years 3. Ultrasound abdomen: Distended gallbladder containing sludge and stones negative Henley sign. Findings could represent acute cholecystitis. Consider correlation with CT. AWAKE & FOLLOWING COMMANDS: [] No [x] Yes SECRETIONS Amount: [] Small [] Moderate [] Large [x] None Color: [] White [] Colored [] Bloody SEDATION: RAAS Score: [] Propofol gtt [] Versed gtt [] Ativan gtt [x] No Sedation PARALYZED: [x] No [] Yes VASOPRESSORS: [x] No [] Yes [] Levophed [] Dopamine [] Vasopressin [] Dobutamine [] Phenylephrine [] Epinephrine OBJECTIVE: VITAL SIGNS: BP: Systolic (24hrs), Av , Min:80 , Max:161 Diastolic (24hrs), Av, Min:25, Max:142 HR: Pulse Av.1 Min: 55 Max: 81 Tmax over 24 hours: Temp (24hrs), Av.2 F (36.8 C), Min:97.6 F (36.4 C), Max:98.8 F (37.1 C) RR Resp Av.5 Min: 13 Max: 27 Sat O2% SpO2 Av.6 % Min: 76 % Max: 99 % Weight Wt Readings from Last 3 Encounters: 03/06/25 101.2 kg (223 lb 1.7 oz) 10/03/23 96.2 kg (212 lb) 09/08/23 98.3 kg (216 lb 12.8 oz) Patient Vitals for the past 12 hrs: BP Temp Temp src Pulse Resp SpO2 Weight 03/06/25 0815 (!) 117/51 -- -- 71 -- -- -- 03/06/25 0800 (!) 130/41 98 F (36.7 C) Oral 63 15 97 % -- 03/06/25 0745 (!) 142/41 -- -- 60 -- -- -- 03/06/25 0731 -- -- -- 70 18 94 % -- 03/06/25 0730 (!) 157/46 -- -- 70 -- -- -- 03/06/25 0715 (!) 142/40 -- -- 62 -- -- -- 03/06/25 0700 (!) 107/29 -- -- 56 16 97 % -- 03/06/25 0545 (!) 121/53 -- -- 74 16 91 % -- 03/06/25 0530 (!) 140/46 -- -- 69 15 98 % -- 03/06/25 0515 (!) 125/36 -- -- 69 14 94 % -- 03/06/25 0500 (!) 115/53 -- -- 70 16 93 % -- 03/06/25 0445 (!) 112/31 -- -- 68 15 95 % -- 03/06/25 0440 -- -- -- -- -- -- 101.2 kg (223 lb 1.7 oz) 03/06/25 0430 (!) 140/54 -- -- 68 14 91 % -- 03/06/25 0415 (!) 122/47 -- -- 68 15 96 % -- 03/06/25 0400 (!) 131/48 97.6 F (36.4 C) Axillary 69 15 95 % -- 03/06/25 0345 (!) 111/25 -- -- 58 19 92 % -- 03/06/25 0330 (!) 113/29 -- -- 60 18 94 % -- 03/06/25 0316 (!) 110/27 -- -- 60 17 96 % -- 03/06/25 0315 -- -- -- 60 16 95 % -- 03/06/25 0300 (!) 125/98 -- -- 65 17 96 % -- 03/06/25 0245 (!) 115/29 -- -- 62 15 97 % -- 03/06/25 0230 (!) 161/142 -- -- 71 20 (!) 76 % -- 03/06/25 0215 (!) 149/103 -- -- 62 13 90 % -- 03/06/25 0200 (!) 119/43 -- -- 60 18 (!) 86 % -- 03/06/25 0145 (!) 119/27 -- -- 56 17 91 % -- 03/06/25 0130 (!) 114/32 -- -- 55 15 91 % -- 03/06/25 0115 (!) 116/34 -- -- 57 15 92 % -- 03/06/25 0100 (!) 131/39 -- -- 58 15 95 % -- 03/06/25 0045 (!) 135/35 -- -- 61 14 95 % -- 03/06/25 0030 (!) 140/40 -- -- 58 15 93 % -- 03/06/25 0015 (!) 88/29 -- -- 60 15 94 % -- 03/06/25 0000 (!) 93/37 98 F (36.7 C) Axillary 64 13 93 % -- 03/05/25 2353 -- -- -- 70 14 95 % -- 03/05/25 2345 (!) 105/34 -- -- 68 14 92 % -- 03/05/25 2330 (!) 97/39 -- -- 65 15 93 % -- 03/05/25 2324 -- -- -- -- 14 -- -- 03/05/25 2315 (!) 107/33 -- -- 69 15 93 % -- 03/05/25 2300 (!) 114/31 -- -- 70 19 91 % -- 03/05/25 2245 127/80 -- -- 79 27 93 % -- 03/05/25 2230 -- -- -- 73 22 94 % -- 03/05/25 2215 (!) 134/49 -- -- 72 18 90 % -- 03/05/25 2200 (!) 131/39 -- -- 73 20 92 % -- 03/05/25 2145 (!) 112/41 -- -- 71 18 95 % -- 03/05/25 2130 (!) 122/48 -- -- 71 18 91 % -- 03/05/25 2115 (!) 114/34 -- -- 74 20 91 % -- 03/05/25 2100 (!) 118/34 -- -- 73 23 93 % -- Physical Exam Constitutional: Appearance: She is obese. She is ill-appearing. HENT: Head: Normocephalic and atraumatic. Cardiovascular: Rate and Rhythm: Normal rate and regular rhythm. Pulses: Normal pulses. Heart sounds: Normal heart sounds. No murmur heard. No gallop. Pulmonary: Effort: Pulmonary effort is normal. No respiratory distress. Breath sounds: Normal breath sounds. No stridor. No wheezing or rhonchi. Abdominal: General: Bowel sounds are decreased. There is distension. Tenderness: There is abdominal tenderness. There is right CVA tenderness and guarding. Musculoskeletal: General: Normal range of motion. Right lower leg: No edema. Left lower leg: No edema. Skin: General: Skin is warm and dry. Coloration: Skin is not jaundiced. Findings: No lesion or rash. Neurological: General: No focal deficit present. Mental Status: She is oriented to person, place, and time. Mental status is at baseline. Psychiatric: Mood and Affect: Mood normal. Thought Content: Thought content normal. SUPPORT DEVICES: [] Ventilator [] BIPAP [x] Nasal Cannula [] Room Air Additional Respiratory Assessments Pulse: 71 Respirations: 15 SpO2: 97 % ASSESSMENT: Patient Active Problem List Diagnosis Date Noted Troponin level elevated 03/05/2025 Hypotension due to hypovolemia 03/04/2025 Acute cholecystitis 03/03/2025 S/P total knee replacement using cement, left 10/03/2023 Diabetes mellitus (HCC) 10/03/2023 Hypertension 10/03/2023 PLAN: WEAN PER PROTOCOL: [] No [] Yes [x] N/A ICU PROPHYLAXIS: Stress ulcer: [x] PPI Agent [] [id number] [] Sucralfate [] Other: VTE: [] Enoxaparin [] Unfract. Heparin Subcut [x] EPC Cuffs NUTRITION: [] NPO [] Tube Feeding (Specify: ) [] TPN [x] PO HOME MEDS RECONCILED: [] No [x] Yes CONSULTATION NEEDED: [x] No [] Yes FAMILY UPDATED: [] No [x] Yes TRANSFER OUT OF ICU: [x] No [] Yes Additional Assessment: Principal Problem: Acute cholecystitis Active Problems: Troponin level elevated Hypotension due to hypovolemia Resolved Problems: * No resolved hospital problems. * Acute cholecystitis Duodenal perforation Gallbladder perforation Plan: Neuro: - Dx: No neurological abnormality - Mental status: Alert oriented x 4 - Pain control: Dilaudid 0.5 Q6 hrly as needed Resp: - Chest x-ray showed congestive heart failure - Patient requiring 8 L of Hi- AYAKA oxygen. At home does not use any oxygen. RR Resp Av.5 Min: 13 Max: 27 Sat O2% SpO2 Av.6 % Min: 76 % Max: 99 % -Will continue to monitor CV: BP: Systolic (24hrs), Av , Min:80 , Max:161 Diastolic (24hrs), Av, Min:25, Max:142 HR: Pulse Av.1 Min: 55 Max: 81 - EKG: First-degree AV block - Echo: EF 60% - Patient follows up with cardiology outpatient.. Patient says when she follows only for hypertension - Patient takes Crestor, amlodipine, furosemide, Aldactone, Coreg, lisinopril, aspirin at home. GI/Nutrition: - Dx: Acute cholecystitis, diarrhea for the last 2 weeks, perforated viscus. - GI prophylaxis: Protonix - General Surgery consulted. -S/p percutaenous cholostomy 03/05/25 Diet Regular /Fluids/Electrolytes: - Dx: BOO. - BUN/Cr: 40/1 - Na/K: 143/3.3 -U/O 2380cc (1cc/kg/hr) ID: Acute cholecystitis Temp (24hrs), Av.2 F (36.8 C), Min:97.6 F (36.4 C), Max:98.8 F (37.1 C) Culture shows E coli Ceftriaxone 1g Q24hrs Endo: Type II DM MDSS BG 200-300 MSK: PT/OT Skin: N/A Prophylaxis: DVT- Lovenox 30mg BID Dispo [x] Remain in ICU [] Transfer out of ICU CODE STATUS: Full Code Kyle Mckinley MD Emergency Medicine Resident PGY-2 03/06/2025 8:52 AM Cosigned by Shahriar Ricks MD at 03/06/2025 8:27 PM EDT Associated attestation - Shahriar Ricks MD - 03/06/2025 8:27 PM EDT Attending Physician Statement I have discussed the case of Tosha Mcneal, including pertinent history and exam findings with the resident/fellow/medical student/INTELLECTUAL PROPERTY MANAGER/PA. I have seen and examined the patient and the hernandez elements of the encounter have been performed by me. I agree with the assessment, plan and orders as documented by the resident/fellow/medical student/INTELLECTUAL PROPERTY MANAGER/PA With changes made to the note as needed. Pt was seen during rounds. Review of Systems: In addition to the pertinent positives and negatives as stated within HPI and the review of systemsas documented in their notes, all other systems were reviewed when able to and are reported negative. Requiring 8 L of oxygen by nasal cannula Came off the pressors Fluid balance +3 L Supplement potassium for hypokalemia Discontinue Mon catheter Improving leukocytosis On oral diet Change antibiotic to ceftriaxone Discontinue intravenous fluids Has EPC cuffs and proton pump inhibitors Start Lovenox Anemia stable Total critical care time caring for this patient with life threatening, unstable organ failure, including direct patient contact, management of life support systems, review of data including imaging and labs, discussions with other team members and physicians at least 30 Min so far today, excludingprocedures. Shahriar Ricks MD 03/06/2025 8:26 PM * Osiris Rogers, - 03/05/2025 10:35 AM EDT Images from the original note were not included. PROGRESS NOTE PATIENT NAME: Tosha Mcneal DATE: 03/05/2025 HD: # 2 DIAGNOSIS AND PLAN perc choley - record output Npo until rpessor requirements off Ugi today to evaluate duodenum- if negative can remove ngt Antbx Gen surg will sign off if ugi negative for duodenal patholgy Plan for intervanl cholecystectomy in 6 weeks, followup in office in 1 month Chief Complaint: abdominal pain SUBJECTIVE Seen and examined. Af. Vss. Tender to palpation in ruq. No nausea. Ngt to suction. Pressors weaningdown OBJECTIVE VITALS: Vitals: 03/05/251999 BP: (!) 139/51 Pulse: 72 Resp: 22 Temp: 98.8 F (37.1 C) SpO2: 90% Physical Exam HENT: Head: Normocephalic and atraumatic. Right Ear: External ear normal. Left Ear: External ear normal. Mouth/Throat: Mouth: Mucous membranes are moist. Pharynx: Oropharynx is clear. Eyes: Extraocular Movements: Extraocular movements intact. Pupils: Pupils are equal, round, and reactive to light. Cardiovascular: Rate and Rhythm: Normal rate and regular rhythm. Pulses: Normal pulses. Pulmonary: Effort: Pulmonary effort is normal. No respiratory distress. Abdominal: General: There is no distension. Palpations: Abdomen is soft. Tenderness: There is abdominal tenderness. Musculoskeletal: General: No swelling or deformity. Normal range of motion. Cervical back: Normal range of motion and neck supple. Skin: Capillary Refill: Capillary refill takes less than 2 seconds. Coloration: Skin is not jaundiced. Neurological: General: No focal deficit present. Mental Status: She is alert and oriented to person, place, and time. LAB: CBC: Recent Labs 03/03/25 1502 03/04/25 0349 03/05/25 0457 WBC 11.7* 11.7* 24.2* HGB 12.6 12.7 11.9 HCT 41.7 41.8 40.8 MCV 92.1 91.9 95.3 PLT 167 164 155 BMP: Recent Labs 03/03/25 2215 03/04/25 0349 03/04/25 1401 03/05/25 0457 NA 140 141 -- 146* K 3.4* 3.5* 3.4* 4.0 CL 102 102 -- 108* CO2 24 26 -- 22 BUN 57* 56* -- 56* CREATININE 1.7* 1.5* -- 1.6* GLUCOSE 205* 191* -- 251* RADIOLOGY: US ABDOMEN LIMITED Specify organ? LIVER, GALLBLADDER Result Date: 03/03/2025 Findings described above could represent acute cholecystitis as reported on concurrent MRCP although sonographic Henley sign is reportedly negative. Consider correlation with CT given the suspected perforation on MRCP. MRI ABDOMEN WO CONTRAST MRCP Result Date: 03/03/2025 1. Findings suspicious for perforated acute cholecystitis. 2. 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 Recommend follow-up pancreas protocol MRI in 2 years. XR CHEST PORTABLE Result Date: 03/03/2025 Findings suggest congestive heart failure Osiris Rogers DO 03/05/2025, 10:35 PM Cosigned by Ulises Card MD at 03/06/2025 8:01 AM EDT Associated attestation - Ulises Card MD - 03/06/2025 8:01 AM EDT I personally evaluated the patient and directed the medical decision making with Resident after thephysical/radiologic exam and laboratory values were reviewed and confirmed. ANM * Dong Zheng MD - 03/05/2025 10:22 AM EDT Images from the original note were not included. Robert Corpsman Progress Note Date: 03/05/2025 Patient name: Tosha Mcneal Date of admission: 03/03/2025 11:22 AM Date of : 1950 PCP: Wild Centeno DO Reason for Admission: Subjective: Patient seen and examined at bedside. Doing well from the cardiac standpoint, denies any chest pain, shortness of breath. Feeling better from yesterday. S/p percutaneous transhepatic cholecystostomy tube Labs, imaging and vitals reviewed. Medications: Scheduled Meds: midodrine 5 mg Oral TID WC sodium chloride flush 5-40 mL IntraVENous 2 times per day piperacillin-tazobactam 3,375 mg IntraVENous Q8H insulin lispro 0-8 Units SubCUTAneous 4x Daily AC & HS pantoprazole (PROTONIX) 40 mg in sodium chloride (PF) 0.9 % 10 mL injection 40 mg IntraVENous Q12H Continuous Infusions: dextrose 100 mL/hr at 03/05/25 1004 norepinephrine 12 mcg/min (03/05/25 0712) VASOpressin 0.03 Units/min (03/05/25 0712) sodium chloride Stopped (03/05/25 0201) dextrose CBC: Recent Labs 03/04/25 0349 03/05/25 0457 WBC 11.7* 24.2* HGB 12.7 11.9 HCT 41.8 40.8 PLT 164 155 BMP: Recent Labs 03/04/25 0349 03/04/25 1401 03/05/25 0457 NA 141 -- 146* K 3.5* 3.4* 4.0 CO2 26 -- 22 BUN 56* -- 56* CREATININE 1.5* -- 1.6* LABGLOM 36* -- 33* GLUCOSE 191* -- 251* Lab Results Component Value Date/Time BILITOT 1.8 03/05/2025 04:57 AM ALKPHOS 151 03/05/2025 04:57 AM AST 45 03/05/2025 04:57 AM ALT 33 03/05/2025 04:57 AM BNP : No results for input(s): BNP in the last 72 hours. No results found for: PROBNP PT/INR : Recent Labs 03/03/25 1502 PROTIME 18.2* INR 1.5 APTT : Lab Results Component Value Date/Time INR 1.5 03/03/2025 03:02 PM CARDIAC ENZYMES: Lab Results Component Value Date/Time TROPHS 112 03/04/2025 10:25 PM TROPHS 83 03/04/2025 02:01 PM TROPHS 90 03/04/2025 10:49 AM LIPID PROFILE: No results found for: CHOL , TRIG , HDL , LDL , VLDL , CHOLHDLRATIO No results for input(s): CHOL , HDL in the last 72 hours. Invalid input(s): LDLCALCU Objective: Vitals: BP (!) 120/32 Pulse 73 Temp 97.6 F (36.4 C) (Oral) Resp 18 Ht 1.524 m (5') Wt 102.5 kg (225 lb 15.5 oz) SpO2 92% BMI 44.13 kg/m General appearance: Drowsy but following commands HEENT: Normocephalic, atraumatic Neck: no carotid bruit, no JVD, trachea midline and thyroid not enlarged Lungs: clear to auscultation bilaterally Heart: regular rate and rhythm, S1, S2 normal, no murmur Abdomen: soft, bowel sounds normal Extremities: no edema or swelling DATA: EKG: Results for orders placed or performed during the hospital encounter of 03/03/25 EKG 12 Lead Result Value Ref Range Ventricular Rate 77 BPM Atrial Rate 77 BPM P-R Interval 160 ms QRS Duration 94 ms Q-T Interval 392 ms QTc Calculation (Bazett) 443 ms R Erie -30 degrees T Erie 53 degrees Narrative Normal sinus rhythm Left axis deviation Low voltage QRS Nonspecific T wave abnormality Abnormal ECG When compared with ECG of 03-Mar-2025 11:14, RI interval has decreased T wave inversion no longer evident in Lateral leads QT has shortened 03/03/25 ECHO (TTE) COMPLETE (PRN CONTRAST/BUBBLE/STRAIN/3D) 03/04/2025 6:25 PM (Final) Interpretation Summary Normal left ventricular systolic function with EF by 2D Simpsons Biplane 60%. Mild concentric LV hypertrophy. Right ventricle size is normal. Normal systolic function. TAPSE 1.8 cm. Mild tricuspid regurgitation. RVSP 30 mmHg. Image quality is technically difficult. Contrast used: Lumason. Procedure performed with the patient in a supine position. Signed by: Gabby Preciado MD on 03/04/2025 6:25 PM Hospital Problems Last Modified POA * (Principal) Acute cholecystitis 03/03/2025 Yes Hypotension due to hypovolemia 03/04/2025 Yes Assessment: Elevated troponin, type II NSTEMI Acute abdomen: Acute perforated cholecystitis: S/p percutaneous transhepatic cholecystostomy tube Sepsis in the setting of above BOO Type II diabetic Chronic HFpEF HLD Plan: Elevated troponin type II, less likely ACS. Echo from 03/04/2025 reviewed, EF preserved, no wall motion. Outpatient stress test Replace electrolytes to keep K>4 and Mag>2. No further inpatient cardiac workup, will follow as needed Please follow the rounding attending's attestation for final recommendations. Cecilia Low MD Fellow, cardiovascular diseases [facility] 03/05/2025 I performed a history and physical examination of the patient and discussed management with the resident/fellow. I reviewed the resident/fellow s note and agree with the documented findings and plan of care. Any areas of disagreement are noted on the chart. I was personally present for the hernandez portions of any procedures. I have documented in the chart those procedures where I was not present during the hernandez portions. I have personally evaluated this patient and have completed at least one if notall hernandez elements of the E/M (history, physical exam, and MDM). Additional findings are as noted. Will arrange for OP stress test. Cardiology will sign off. Dong Zheng MD MD * Tulio Medina MD - 03/05/2025 8:43 AM EDT INTENSIVE CARE UNIT Resident Physician Progress Note Patient - Tosha Mcneal Date of Admission - 03/03/2025 11:22 AM Date of Evaluation - 03/05/2025 Room and Bed Number - 3008/3008-01 Hospital Day - 2 HPI: History was obtained from chart review and the patient. Tosha Mcneal is a 74 y.o. with PMH of -Diabetes melitis type II on insulin - Hypertension -Hyperlipidemia - Gout Presented to ER with pain, diarrhea for the last 2 weeks. Associated with cyclical fever not documented. Patient also says she experienced chest pain while having abdominal pain. Nonradiating, not associated with any diaphoresis or palpitations. She also endorsed associated nausea. Patient stated the diarrhea was watery not foul-smelling. She had apparently ate a cake before her symptoms worsenedafter which she presented to the ER. Patient also states she had no bowel movements for the last 4 days and had been passing little to no gas since then. Patient denied any cough blurring of vision, headache. Patient had initially presented with similar complaints [address] abdomen pelvis done showedenteritis and adenitis. Patient was supposedly discharged with pain medications only. In the ED at outside hospital she was noted to have mildly distended abdomen with decreased bowel sounds. She was noted to have a temperature of 99.8, requiring 5 L of oxygen which was weaned off to room air. Initial labs in the ED at outside hospital showed lactate of 2.4-2.7, WBC count of 15, hemoglobin 13.9, creatinine 3.53, BUN 59, anion gap of 15, troponin 403-443, BUN of 15,752. UA showed dark yellow clear urine with trace leukocyte esterase and large bacteria. Culture was sent. She was also noted to have a potassium of 3.1 however she was noted to be baseline hypokalemic. Patient was given IV Rocephin and given 2 L of IV normal saline bolus.EKG showed first-degree AV block. CT scan was obtained which showed acute cholecystitis, fatty infiltration of the liver, enlarged heart size with small pericardial effusion mild sigmoid: Diverticulosis. Patient was then switched to IV Zosyn and transferred to [address] ICU. Patient was subsequently brought to [address] ICU Upon admission, pt was A&O x 4, normotensive, with normal heart rate and afebrile. SUBJECTIVE: OVERNIGHT EVENTS: Overnight patient had decreasing blood pressure and had to be started on Levophedand vasopressin. F.A.S.T. M. H.U.G.S. B.I.D. Feeding Diet: Diet NPO Fluids: LR at 100 Family: Updated Analgesic: Dilaudid Sedation: N/A Thrombo-prophylaxis: [] Enoxaparin, [] Unfract. Heparin Subcutaneously, [x] EPC Cuffs Mobility: As tolerated Heads up: At 30 degrees Ulcer prophylaxis: [x] PPI Agent 40 twice daily, [] [id number], [] Sucralfate, [] Other: Glycemic control: Medium dose corrective algorithm Spontaneous breathing trial: N/A Bowel regimen/urine output: 1.14 L Indwelling catheter/lines: Came in with Omn's. Urine output 662 De-escalation: Mon catheter if patient is no longer needing it. Gram culture from drainage grew gram negative rods Labs show troponin 108-101-112. Per cardiology type II UT. Lipase 23 Lactic acid 2.3-1.4 Pro time 18.2, INR 1.5 WBC count uptrending to 24.2, hemoglobin 11.9 down from 12.7. Sodium 146, chloride 108, glucose 251, BUN 56, creatinine 1.6 Albumin 2.3, bilirubin 0.8, alkaline phosphatase 151. Yesterday patient only required 5 units of lispro. UA showed cloudy urine with moderate hemoglobin and moderate leukocyte esterase- on Zosyn Patient received 2 units of lispro glucose trending less than 191 since. Currently on medium dose insulin, Protonix, Zosyn, LR at 100, as needed Dilaudid 0.5 every 6, Zofran, as needed GlycoLax. On 4 L of nasal cannula. Patient on 12 of levo and 0.03 of vaso- On a high flow nasal cannula with a flow of 12 and FiO2 50%. PLAN FOR TODAY: Follow-up on general surgery regarding gallbladder perforation. Status post transhepatic cholecystostomy tube placement. Per chart review patient had blood for 30 mL out from the drain. This morning minimum output. Switch IV fluids to 5% dextrose. Continue Zosyn. Will continue to wean off of Levophed and vasopressin as tolerated Will give a dose of Lasix for decreasing urine output. Consults: General Surgery: Concerns for duodenal perforation, NPO, NGT insertion maintain low intermittent wall suctioning Imaging Chest x-ray suggestive of congestive heart failure. MRI abdomen without contrast 1. Findings suspicious for perforated acute cholecystitis. 2. 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 Recommend follow-up pancreas protocol MRI in 2 years 3. Ultrasound abdomen: Distended gallbladder containing sludge and stones negative Henley sign. Findings could represent acute cholecystitis. Consider correlation with CT. Review of Systems Constitutional: Positive for activity change, chills, fatigue and fever. Negative for appetite change, diaphoresis and unexpected weight change. HENT: Positive for mouth sores. Negative for congestion and sinus pressure. Eyes: Negative. Negative for discharge and redness. Respiratory: Negative. Negative for apnea, cough, chest tightness, wheezing and stridor. Cardiovascular: Positive for chest pain. Negative for palpitations and leg swelling. Gastrointestinal: Positive for abdominal distention, abdominal pain, diarrhea, nausea and vomiting.Negative for blood in stool, constipation and rectal pain. Endocrine: Negative. Negative for cold intolerance. Genitourinary: Negative. Negative for difficulty urinating, frequency and pelvic pain. Musculoskeletal: Positive for back pain. Skin: Negative. Negative for color change and pallor. Neurological: Negative. Negative for dizziness, tremors, seizures, light- headedness, numbness and headaches. Hematological: Negative. Negative for adenopathy. Does not bruise/bleed easily. Psychiatric/Behavioral: Negative for agitation, dysphoric mood and sleep disturbance. AWAKE & FOLLOWING COMMANDS: [] No [x] Yes SECRETIONS Amount: [] Small [] Moderate [] Large [x] None Color: [] White [] Colored [] Bloody SEDATION: RAAS Score: [] Propofol gtt [] Versed gtt [] Ativan gtt [x] No Sedation PARALYZED: [x] No [] Yes VASOPRESSORS: [x] No [] Yes [] Levophed [] Dopamine [] Vasopressin [] Dobutamine [] Phenylephrine [] Epinephrine OBJECTIVE: VITAL SIGNS: BP: Systolic (24hrs), Av , Min:82 , Max:166 Diastolic (24hrs), Av, Min:23, Max:122 HR: Pulse Av.9 Min: 64 Max: 88 Tmax over 24 hours: Temp (24hrs), Av.4 F (36.9 C), Min:97.5 F (36.4 C), Max:99.2 F (37.3 C) RR Resp Av.4 Min: 11 Max: 34 Sat O2% SpO2 Av.1 % Min: 78 % Max: 97 % Weight Wt Readings from Last 3 Encounters: 03/05/25 102.5 kg (225 lb 15.5 oz) 10/03/23 96.2 kg (212 lb) 09/08/23 98.3 kg (216 lb 12.8 oz) Patient Vitals for the past 12 hrs: BP Temp Temp src Pulse Resp SpO2 Weight 03/05/25 0754 -- -- -- 64 15 94 % -- 03/05/25 0741 -- 97.6 F (36.4 C) Oral -- -- -- -- 03/05/25 0600 (!) 117/48 -- -- 68 16 97 % 102.5 kg (225 lb 15.5 oz) 03/05/25 0545 122/65 -- -- 69 21 94 % -- 03/05/25 0530 (!) 127/30 -- -- 71 18 92 % -- 03/05/25 0515 (!) 85/37 -- -- 71 15 90 % -- 03/05/25 0500 (!) 95/53 -- -- 75 22 92 % -- 03/05/25 0445 (!) 106/47 -- -- 71 16 92 % -- 03/05/25 0430 (!) 116/38 -- -- 71 22 91 % -- 03/05/25 0415 (!) 119/36 -- -- 71 21 94 % -- 03/05/25 0400 (!) 157/57 98.1 F (36.7 C) Axillary 76 16 (!) 88 % -- 03/05/25 0345 (!) 142/42 -- -- 73 23 92 % -- 03/05/25 0330 (!) 136/34 -- -- 72 20 90 % -- 03/05/25 0322 -- -- -- 73 17 95 % -- 03/05/25 0315 (!) 122/40 -- -- 70 16 94 % -- 03/05/25 0300 (!) 135/33 -- -- 71 16 93 % -- 03/05/25 0245 (!) 145/40 -- -- 73 20 93 % -- 03/05/25 0233 -- -- -- 73 21 96 % -- 03/05/25 0230 -- -- -- 71 20 92 % -- 03/05/25 0215 (!) 121/36 -- -- 74 17 93 % -- 03/05/25 0208 -- -- -- -- 14 -- -- 03/05/25 0200 (!) 106/32 -- -- 74 17 93 % -- 03/05/25 0145 (!) 117/40 -- -- 74 24 93 % -- 03/05/25 0130 (!) 112/42 -- -- 73 23 94 % -- 03/05/25 0115 (!) 124/38 -- -- 74 24 95 % -- 03/05/25 0100 (!) 121/46 -- -- 77 18 94 % -- 03/05/25 0045 (!) 117/40 -- -- 77 20 94 % -- 03/05/25 0030 (!) 107/48 -- -- 77 11 93 % -- 03/05/25 0015 (!) 111/42 -- -- 78 25 95 % -- 03/05/25 0000 (!) 111/43 98.8 F (37.1 C) Axillary 80 22 93 % -- 03/04/25 2345 -- -- -- -- -- 94 % -- 03/04/25 2330 (!) 110/38 -- -- 80 19 94 % -- 03/04/25 2323 -- -- -- 80 24 95 % -- 03/04/25 231 (!) 8228 -- -- 78 22 94 % -- 03/04/252299 (!) 8933 -- -- 78 22 94 % -- 03/04/252244 (!) 82/31 -- -- 77 22 94 % -- 03/04/252229 (!) 86/35 -- -- 81 24 94 % -- 03/04/252214 119/84 -- -- 88 18 96 % -- 03/04/252199 (!) 89/ -- -- 83 23 96 % -- 03/04/252144 (!) 98/51 -- -- 83 24 94 % -- 03/04/252129 (!) 102/49 -- -- 80 23 94 % -- 03/04/252114 (!) 91/38 -- -- 78 22 93 % -- 03/04/252099 (!) 93/40 -- -- 83 24 91 % -- 03/04/252044 (!) 95/42 -- -- 80 27 92 % -- Physical Exam Constitutional: Appearance: She is obese. She is ill-appearing. HENT: Head: Normocephalic and atraumatic. Cardiovascular: Rate and Rhythm: Normal rate and regular rhythm. Pulses: Normal pulses. Heart sounds: Normal heart sounds. No murmur heard. No gallop. Pulmonary: Effort: Pulmonary effort is normal. No respiratory distress. Breath sounds: Normal breath sounds. No stridor. No wheezing or rhonchi. Abdominal: General: Bowel sounds are decreased. There is distension. Tenderness: There is abdominal tenderness. There is right CVA tenderness and guarding. Musculoskeletal: General: Normal range of motion. Right lower leg: No edema. Left lower leg: No edema. Skin: General: Skin is warm and dry. Coloration: Skin is not jaundiced. Findings: No lesion or rash. Neurological: General: No focal deficit present. Mental Status: She is oriented to person, place, and time. Mental status is at baseline. Psychiatric: Mood and Affect: Mood normal. Thought Content: Thought content normal. SUPPORT DEVICES: [] Ventilator [] BIPAP [x] Nasal Cannula [] Room Air Additional Respiratory Assessments Pulse: 64 Respirations: 15 SpO2: 94 % ASSESSMENT: Patient Active Problem List Diagnosis Date Noted Hypotension due to hypovolemia 03/04/2025 Acute cholecystitis 03/03/2025 S/P total knee replacement using cement, left 10/03/2023 Diabetes mellitus (HCC) 10/03/2023 Hypertension 10/03/2023 PLAN: WEAN PER PROTOCOL: [] No [] Yes [x] N/A ICU PROPHYLAXIS: Stress ulcer: [x] PPI Agent [] [id number] [] Sucralfate [] Other: VTE: [] Enoxaparin [] Unfract. Heparin Subcut [x] EPC Cuffs NUTRITION: [x] NPO [] Tube Feeding (Specify: ) [] TPN [] PO HOME MEDS RECONCILED: [] No [x] Yes CONSULTATION NEEDED: [x] No [] Yes FAMILY UPDATED: [] No [x] Yes TRANSFER OUT OF ICU: [x] No [] Yes Additional Assessment: Principal Problem: Acute cholecystitis Active Problems: Hypotension due to hypovolemia Resolved Problems: * No resolved hospital problems. * Acute cholecystitis Duodenal perforation Gallbladder perforation Plan: Neuro: - Dx: No neurological abnormality - Mental status: Alert oriented x 4 - Pain control: Dilaudid 0.5 as needed Resp: - Chest x-ray showed congestive heart failure - Patient requiring 3 L of oxygen. At home does not use any oxygen. - Concerns for COPD. Patient states she has never been diagnosed before. 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 - RR Resp Av.4 Min: 11 Max: 34 Sat O2% SpO2 Av.1 % Min: 78 % Max: 97 % CV: - Dx: Elevated troponins - EKG: First-degree AV block - Echo: Pending - Goal SBP above 100 -Follow-up on echo and troponins. - Patient follows up with cardiology outpatient.. Patient says when she follows only for hypertension - Patient takes Crestor, amlodipine, furosemide, Aldactone, Coreg, lisinopril, aspirin at home. - Cardiology consulted. - Withholding antihypertensives. Will continue with LR at 100 mL. 500 mL of bolus also given. - Patient continues to not maintain blood pressure, will start Levophed. BP: Systolic (24hrs), Av , Min:82 , Max:166 Diastolic (24hrs), Av, Min:23, Max:122 HR: Pulse Av.9 Min: 64 Max: 88 GI/Nutrition: - Dx: Acute cholecystitis, diarrhea for the last 2 weeks, perforated viscus. - Bowel regimen: N/A - GI prophylaxis: Protonix - General Surgery consulted. - Appreciate recommendations. Follow-up on recommendations. - Follow-up on stool study and C. difficile culture - MRI was concerning for perforated acute cholecystitis and incidental finding on pancreas. - Follow-up ultrasound was negative for Henley sign. Correlation with CT scan recommended by radiologist. - Will defer to general surgery. Apparently general surgery wants to take patient to the OR today. - Cardiology consulted for cardiac clearance. Diet:Diet NPO /Fluids/Electrolytes: - Dx: BOO. - BUN/Cr: BUN of 59 and creatinine of 3.53 at outside hospital. Repeat labs ordered. - Electrolytes: Potassium 3.1. - I/O: No intake/output data recorded. - IVF: Normal saline bolus followed by infusion at 100 NR - Will obtain renal ultrasound. - Strict BURKE monitoring. - Cultures negative so far. UA does show leukocyte Estrace moderate. IV Fluids: 100 mL an hour. A bolus of 500 mL also given this morning. I/O: In: 4540.5 [I.V.:2271.6] Out: 1492 [Urine:662; Drains:430] Continue Zosyn. Creatinine improving. Replace electrolytes as needed. Recent Labs 03/03/25 1502 03/03/25 2215 03/04/25 0349 03/04/25 1401 03/05/25 0457 NA 138 140 141 -- 146* K 3.1* 3.4* 3.5* 3.4* 4.0 CL 100 102 102 -- 108* CO2 21 24 26 -- 22 BUN 63* 57* 56* -- 56* CREATININE 2.1* 1.7* 1.5* -- 1.6* GLUCOSE 219* 205* 191* -- 251* CALCIUM 8.3* 8.4* 8.4* -- 8.5* BILITOT 1.4* -- 1.3* -- 1.8* ALKPHOS 61 -- 66 -- 151* AST 30 -- 29 -- 45* ALT 36* -- 33 -- 33 Magnesium: Lab Results Component Value Date/Time MG 2.2 03/04/2025 03:49 AM MG 2.2 03/03/2025 03:02 PM Phosphorus: No results found for: PHOS Ionized Calcium: No results found for: CAION Heme: Recent Labs 03/03/25 1502 03/04/25 0349 03/05/25 0457 HGB 12.6 12.7 11.9 stable PT/INR: Lab Results Component Value Date/Time PROTIME 18.2 03/03/2025 03:02 PM INR 1.5 03/03/2025 03:02 PM PTT: No results found for: APTT Complete Blood Count: Recent Labs 03/03/25 1502 03/04/25 0349 03/05/25 045 WBC 11.7* 11.7* 24.2* RBC 4.53 4.55 4.28 HGB 12.6 12.7 11.9 HCT 41.7 41.8 40.8 MCV 92.1 91.9 95.3 MCH 27.8 27.9 27.8 MCHC 30.2 30.4 29.2 RDW 15.7* 15.9* 16.3* PLT 167 164 155 MPV 10.3 10.4 11.0 ID: Lab Results Component Value Date WBC 24.2 (H) 03/05/2025 Acute cholecystitis Tmax Temp (24hrs), Av.4 F (36.9 C), Min:97.5 F (36.4 C), Max:99.2 F (37.3 C) Follow-up on cultures. So far negative. Antimicrobials: Zosyn Endo: glucose controlled - most recent BGL is Recent Labs 03/03/25 2215 03/04/25 0349 03/05/25 045 GLUCOSE 205* 191* 251* MSK: N/A Skin: N/A Prophylaxis: DVT JIN stockings - thigh High, OK for primary team to initiate chemoprophylaxis at this time, and No chemoprophylaxis anticoagulation at this time. GI: Protonix Dispo [x] Remain in ICU [] Transfer out of ICU CODE STATUS: Full Code DATA: Complete Blood Count: Recent Labs 03/03/25 1502 03/04/25 0349 03/05/25 0457 WBC 11.7* 11.7* 24.2* RBC 4.53 4.55 4.28 HGB 12.6 12.7 11.9 HCT 41.7 41.8 40.8 MCV 92.1 91.9 95.3 MCH 27.8 27.9 27.8 MCHC 30.2 30.4 29.2 RDW 15.7* 15.9* 16.3* PLT 167 164 155 MPV 10.3 10.4 11.0 Last 3 Blood Glucose: Recent Labs 03/03/25 1240 03/03/25 1502 03/03/25 2215 03/04/25 0349 03/05/25 0457 GLUCOSE 224* 219* 205* 191* 251* PT/INR: Lab Results Component Value Date/Time PROTIME 18.2 03/03/2025 03:02 PM INR 1.5 03/03/2025 03:02 PM PTT: No results found for: APTT Comprehensive Metabolic Profile: Recent Labs 03/03/25 1502 03/03/25 2215 03/04/25 0349 03/04/25 1401 03/05/25 0457 NA 138 140 141 -- 146* K 3.1* 3.4* 3.5* 3.4* 4.0 CL 100 102 102 -- 108* CO2 -- BUN 63* 57* 56* -- 56* CREATININE 2.1* 1.7* 1.5* -- 1.6* GLUCOSE 219* 205* 191* -- 251* CALCIUM 8.3* 8.4* 8.4* -- 8.5* BILITOT 1.4* -- 1.3* -- 1.8* ALKPHOS 61 -- 66 -- 151* AST 30 -- 29 -- 45* ALT 36* -- 33 -- 33 Magnesium: Lab Results Component Value Date/Time MG 2.2 03/04/2025 03:49 AM MG 2.2 03/03/2025 03:02 PM Phosphorus: No results found for: PHOS Ionized Calcium: No results found for: CAION Urinalysis: Lab Results Component Value Date/Time NITRU NEGATIVE 03/03/2025 04:16 PM COLORU Yellow 03/03/2025 04:16 PM PHUR 5.5 03/03/2025 04:16 PM WBCUA 20 TO 50 03/03/2025 04:16 PM RBCUA 5 TO 10 03/03/2025 04:16 PM BACTERIA None 03/03/2025 04:16 PM LEUKOCYTESUR MODERATE 03/03/2025 04:16 PM UROBILINOGEN Normal 03/03/2025 04:16 PM BILIRUBINUR NEGATIVE 03/03/2025 04:16 PM GLUCOSEU NEGATIVE 03/03/2025 04:16 PM KETUA NEGATIVE 03/03/2025 04:16 PM Radiology/Imaging: US ABDOMEN LIMITED Specify organ? LIVER, GALLBLADDER Result Date: 03/03/2025 Findings described above could represent acute cholecystitis as reported on concurrent MRCP although sonographic Henley sign is reportedly negative. Consider correlation with CT given the suspected perforation on MRCP. MRI ABDOMEN WO CONTRAST MRCP Result Date: 03/03/2025 1. Findings suspicious for perforated acute cholecystitis. 2. 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 Recommend follow-up pancreas protocol MRI in 2 years. XR CHEST PORTABLE Result Date: 03/03/2025 Findings suggest congestive heart failure MEDICATIONS: Scheduled Meds: midodrine 5 mg Oral TID WC sodium chloride flush 5-40 mL IntraVENous 2 times per day piperacillin-tazobactam 3,375 mg IntraVENous Q8H insulin lispro 0-8 Units SubCUTAneous 4x Daily AC & HS pantoprazole (PROTONIX) 40 mg in sodium chloride (PF) 0.9 % 10 mL injection 40 mg IntraVENous Q12H Continuous Infusions: norepinephrine 12 mcg/min (03/05/25 0712) VASOpressin 0.03 Units/min (03/05/25 0712) sodium chloride Stopped (03/05/25 0201) lactated ringers 100 mL/hr at 03/05/25 0712 dextrose PRN Meds: HYDROmorphone, 0.5 mg, Q4H PRN potassium chloride, 40 mEq, PRN Or potassium alternative oral replacement, 40 mEq, PRN Or potassium chloride, 10 mEq, PRN sodium chloride flush, 5-40 mL, PRN sodium chloride, , PRN ondansetron, 4 mg, Q8H PRN Or ondansetron, 4 mg, Q6H PRN polyethylene glycol, 17 g, Daily PRN acetaminophen, 650 mg, Q6H PRN Or acetaminophen, 650 mg, Q6H PRN glucose, 4 tablet, PRN dextrose bolus, 125 mL, PRN Or dextrose bolus, 250 mL, PRN glucagon (rDNA), 1 mg, PRN dextrose, , Continuous PRN Tulio Medina MD Internal Medicine Resident PGY-1 03/05/2025 8:44 AM Cosigned by Shahriar Ricks MD at 03/05/2025 10:09 PM EDT Associated attestation - Shahriar Ricks MD - 03/05/2025 10:09 PM EDT Attending Physician Statement I have discussed the case of Tosha Mcneal, including pertinent history and exam findings with the resident/fellow/medical student/INTELLECTUAL PROPERTY MANAGER/PA. I have seen and examined the patient and the hernandez elements of the encounter have been performed by me. I agree with the assessment, plan and orders as documented by the resident/fellow/medical student/INTELLECTUAL PROPERTY MANAGER/PA With changes made to the note as needed. Pt was seen during rounds. Review of Systems: In addition to the pertinent positives and negatives as stated within HPI and the review of systemsas documented in their notes, all other systems were reviewed when able to and are reported negative. Patient continues to need pressor support On 4 L of oxygen ABG with chronic respiratory acidosis Fluid balance +2.1 L Hypernatremia, slightly worse, continue to monitor Renal function also worsened with creatinine 1.6 Blood sugars are increased, adjust insulin Patient remains n.p.o. Leukocytosis also has worsened Patient had upper GI follow-through and did not show any leak in the region of the duodenum On proton pump inhibitor Total critical care time caring for this patient with life threatening, unstable organ failure, including direct patient contact, management of life support systems, review of data including imaging and labs, discussions with other team members and physicians at least 30 Min so far today, excludingprocedures. Shahriar Ricks MD 03/05/2025 10:08 PM * Osiris Rogers DO - 03/04/2025 11:19 AM EDT Images from the original note were not included. PROGRESS NOTE PATIENT NAME: Tosha Mcneal DATE: 03/04/2025 HD: # 1 DIAGNOSIS AND PLAN Plan for IR evaluation for perc choley Npo antbx Chief Complaint: abdominal pain SUBJECTIVE Seen and examined. Af. Vss. Tender to palpation in ruq. No nausea. Ngt to suction OBJECTIVE VITALS: Vitals: 03/04/25 1100 BP: (!) 101/33 Pulse: 67 Resp: 22 Temp: SpO2: 91% Physical Exam HENT: Head: Normocephalic and atraumatic. Right Ear: External ear normal. Left Ear: External ear normal. Mouth/Throat: Mouth: Mucous membranes are moist. Pharynx: Oropharynx is clear. Eyes: Extraocular Movements: Extraocular movements intact. Pupils: Pupils are equal, round, and reactive to light. Cardiovascular: Rate and Rhythm: Normal rate and regular rhythm. Pulses: Normal pulses. Pulmonary: Effort: Pulmonary effort is normal. No respiratory distress. Abdominal: General: There is no distension. Palpations: Abdomen is soft. Tenderness: There is abdominal tenderness. Musculoskeletal: General: No swelling or deformity. Normal range of motion. Cervical back: Normal range of motion and neck supple. Skin: Capillary Refill: Capillary refill takes less than 2 seconds. Coloration: Skin is not jaundiced. Neurological: General: No focal deficit present. Mental Status: She is alert and oriented to person, place, and time. LAB: CBC: Recent Labs 03/03/25 1240 03/03/25 1502 03/04/25 0349 WBC 12.6* 11.7* 11.7* HGB 12.8 12.6 12.7 HCT 41.8 41.7 41.8 MCV 91.3 92.1 91.9 PLT 189 167 164 BMP: Recent Labs 03/03/25 1502 03/03/25 2215 03/04/25 0349 NA 138 140 141 K 3.1* 3.4* 3.5* CL 100 102 102 CO2 21 24 26 BUN 63* 57* 56* CREATININE 2.1* 1.7* 1.5* GLUCOSE 219* 205* 191* RADIOLOGY: US ABDOMEN LIMITED Specify organ? LIVER, GALLBLADDER Result Date: 03/03/2025 Findings described above could represent acute cholecystitis as reported on concurrent MRCP although sonographic Henley sign is reportedly negative. Consider correlation with CT given the suspected perforation on MRCP. MRI ABDOMEN WO CONTRAST MRCP Result Date: 03/03/2025 1. Findings suspicious for perforated acute cholecystitis. 2. 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 Recommend follow-up pancreas protocol MRI in 2 years. XR CHEST PORTABLE Result Date: 03/03/2025 Findings suggest congestive heart failure Osiris Rogers DO 03/04/2025, 12:02 PM * Tulio Medina MD - 03/04/2025 7:40 AM EDT INT[facility]IVE [facility] UNIT Resident Physician Progress Note Patient - Tosha Mcneal Date of Admission - 03/03/2025 11:22 AM Date of Evaluation - 03/04/2025 Room and Bed Number - 3008/3008-01 Hospital Day - 1 HPI: History was obtained from chart review and the patient. Tosha Mcneal is a 74 y.o. with PMH of -Diabetes melitis type II on insulin - Hypertension -Hyperlipidemia - Gout Presented to ER with pain, diarrhea for the last 2 weeks. Associated with cyclical fever not documented. Patient also says she experienced chest pain while having abdominal pain. Nonradiating, not associated with any diaphoresis or palpitations. She also endorsed associated nausea. Patient stated the diarrhea was watery not foul-smelling. She had apparently ate a cake before her symptoms worsenedafter which she presented to the ER. Patient also states she had no bowel movements for the last 4 days and had been passing little to no gas since then. Patient denied any cough blurring of vision, headache. Patient had initially presented with similar complaints [address] abdomen pelvis done showedenteritis and adenitis. Patient was supposedly discharged with pain medications only. In the ED at outside hospital she was noted to have mildly distended abdomen with decreased bowel sounds. She was noted to have a temperature of 99.8, requiring 5 L of oxygen which was weaned off to room air. Initial labs in the ED at outside hospital showed lactate of 2.4-2.7, WBC count of 15, hemoglobin 13.9, creatinine 3.53, BUN 59, anion gap of 15, troponin 403-443, BUN of 15,752. UA showed dark yellow clear urine with trace leukocyte esterase and large bacteria. Culture was sent. She was also noted to have a potassium of 3.1 however she was noted to be baseline hypokalemic. Patient was given IV Rocephin and given 2 L of IV normal saline bolus.EKG showed first-degree AV block. CT scan was obtained which showed acute cholecystitis, fatty infiltration of the liver, enlarged heart size with small pericardial effusion mild sigmoid: Diverticulosis. Patient was then switched to IV Zosyn and transferred to [address] ICU. Patient was subsequently brought to [address] ICU Upon admission, pt was A&O x 4, normotensive, with normal heart rate and afebrile. SUBJECTIVE: OVERNIGHT EVENTS: MRI yesterday showed suspicion of perforated acute cholecystitis. Probable branchduct IPMN's of the pancreas measuring 2.9 cm. F.A.S.T. M. H.U.G.S. B.I.D. Feeding Diet: Diet NPO Fluids: LR at 100 Family: Updated Analgesic: Dilaudid Sedation: N/A Thrombo-prophylaxis: [] Enoxaparin, [] Unfract. Heparin Subcutaneously, [x] EPC Cuffs Mobility: As tolerated Heads up: At 30 degrees Ulcer prophylaxis: [x] PPI Agent 40 twice daily, [] [id number], [] Sucralfate, [] Other: Glycemic control: Medium dose corrective algorithm Spontaneous breathing trial: N/A Bowel regimen/urine output: 1.14 L Indwelling catheter/lines: Came in with Mon's. De-escalation: Mon catheter if patient is no longer needing it. Labs show troponin [id number] Lipase 23 Lactic acid 2.3 Pro time 18.2, INR 1.5 Sodium 141 potassium 3.1 CO2 24, anion gap 20, glucose 224, BUN 60, creatinine 2.2, calcium 8.4 Total protein 5.6, albumin 3.1, total bilirubin 1.6, ALT 46, AST 33 WBC 11.7, hemoglobin 12.7, platelets 164 Potassium from this morning 3.5, creatinine downtrending to 1.5 from 2.1, total bilirubin downtrending from 1.6-1.3 Lactic acid down trended to 1.8 UA showed cloudy urine with moderate hemoglobin and moderate leukocyte esterase- on Zosyn Patient received 2 units of lispro glucose trending less than 191 since. Currently on medium dose insulin, Protonix, Zosyn, LR at 100, as needed Dilaudid 0.5 every 6, Zofran, as needed GlycoLax. On 4 L of nasal cannula. Urine output 1.14 L. Net positive to 35 mL. PLAN FOR TODAY: Follow-up on general surgery regarding gallbladder perforation. Possible plan to take 2 OR today. Cardiology consulted for cardiac clearance for surgery. Continue IV fluids. Continue Zosyn. Will give 500 mL of bolus. Given patient's increasing oxygen requirement due to pulmonary edema/congestion, if patient continues to be hypotensive we will start on Levophed. Patient remained stable will transfer patient out. Consults: General Surgery: Concerns for duodenal perforation, NPO, NGT insertion maintain low intermittent wall suctioning Imaging Chest x-ray suggestive of congestive heart failure. MRI abdomen without contrast 1. Findings suspicious for perforated acute cholecystitis. 2. 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 Recommend follow-up pancreas protocol MRI in 2 years 3. Ultrasound abdomen: Distended gallbladder containing sludge and stones negative Henley sign. Findings could represent acute cholecystitis. Consider correlation with CT. Review of Systems Constitutional: Positive for activity change, chills, fatigue and fever. Negative for appetite change, diaphoresis and unexpected weight change. HENT: Positive for mouth sores. Negative for congestion and sinus pressure. Eyes: Negative. Negative for discharge and redness. Respiratory: Negative. Negative for apnea, cough, chest tightness, wheezing and stridor. Cardiovascular: Positive for chest pain. Negative for palpitations and leg swelling. Gastrointestinal: Positive for abdominal distention, abdominal pain, diarrhea, nausea and vomiting.Negative for blood in stool, constipation and rectal pain. Endocrine: Negative. Negative for cold intolerance. Genitourinary: Negative. Negative for difficulty urinating, frequency and pelvic pain. Musculoskeletal: Positive for back pain. Skin: Negative. Negative for color change and pallor. Neurological: Negative. Negative for dizziness, tremors, seizures, light- headedness, numbness and headaches. Hematological: Negative. Negative for adenopathy. Does not bruise/bleed easily. Psychiatric/Behavioral: Negative for agitation, dysphoric mood and sleep disturbance. AWAKE & FOLLOWING COMMANDS: [] No [x] Yes SECRETIONS Amount: [] Small [] Moderate [] Large [x] None Color: [] White [] Colored [] Bloody SEDATION: RAAS Score: [] Propofol gtt [] Versed gtt [] Ativan gtt [x] No Sedation PARALYZED: [x] No [] Yes VASOPRESSORS: [x] No [] Yes [] Levophed [] Dopamine [] Vasopressin [] Dobutamine [] Phenylephrine [] Epinephrine OBJECTIVE: VITAL SIGNS: BP: Systolic (24hrs), Av , Min:98 , Max:136 Diastolic (24hrs), Av, Min:27, Max:82 HR: Pulse Av.9 Min: 64 Max: 84 Tmax over 24 hours: Temp (24hrs), Av.3 F (36.8 C), Min:97.3 F (36.3 C), Max:100.2 F (37.9 C) RR Resp Av.8 Min: 14 Max: 23 Sat O2% SpO2 Av.5 % Min: 89 % Max: 96 % Weight Wt Readings from Last 3 Encounters: 03/04/25 101.8 kg (224 lb 6.9 oz) 10/03/23 96.2 kg (212 lb) 09/08/23 98.3 kg (216 lb 12.8 oz) Patient Vitals for the past 12 hrs: BP Temp Temp src Pulse Resp SpO2 Weight 03/04/25 0645 -- -- -- 65 15 93 % -- 03/04/25 0630 (!) 116/39 -- -- 67 17 92 % -- 03/04/25 0615 -- -- -- 67 14 92 % -- 03/04/25 0600 (!) 107/39 -- -- 64 15 91 % -- 03/04/25 0545 -- -- -- 68 17 93 % -- 03/04/25 0530 (!) 108/49 -- -- 64 16 94 % -- 03/04/25 0515 -- -- -- 67 15 92 % -- 03/04/25 0500 (!) 121/50 -- -- 72 23 96 % -- 03/04/25 0445 -- -- -- 67 15 93 % -- 03/04/25 0430 (!) 103/47 -- -- 68 17 92 % -- 03/04/25 0422 -- -- -- -- 17 -- -- 03/04/25 0415 -- -- -- 67 17 91 % -- 03/04/25 0400 (!) 101/41 97.8 F (36.6 C) Oral 68 17 90 % -- 03/04/25 0345 -- -- -- 70 20 93 % -- 03/04/25 0330 (!) 136/51 -- -- 71 20 92 % -- 03/04/25 0315 -- -- -- 68 15 94 % -- 03/04/25 0300 (!) 122/43 -- -- 69 20 92 % -- 03/04/25 0245 -- -- -- 73 17 (!) 89 % -- 03/04/25 0230 (!) 114/39 -- -- 71 22 93 % -- 03/04/25 0215 -- -- -- 71 15 91 % -- 03/04/25 0200 (!) 104/39 -- -- 71 17 90 % -- 03/04/25 0145 -- -- -- 70 20 92 % -- 03/04/25 0137 124/69 -- -- -- -- -- -- 03/04/25 0130 (!) 98/27 -- -- 72 15 92 % -- 03/04/25 0115 -- -- -- 72 17 91 % -- 03/04/25 0100 (!) 110/45 -- -- 72 19 92 % -- 03/04/25 0045 -- -- -- 72 20 90 % -- 03/04/25 0030 105/82 -- -- 72 20 91 % -- 03/04/25 0026 -- -- -- -- -- -- 101.8 kg (224 lb 6.9 oz) 03/04/25 0015 -- -- -- 69 18 95 % -- 03/04/25 0000 (!) 124/38 97.3 F (36.3 C) Axillary 71 17 93 % -- 03/03/25 2334 (!) 131/37 -- -- 69 20 -- -- 03/03/25 2300 -- -- -- 69 16 96 % -- 03/03/25 2200 (!) 115/38 -- -- 68 16 93 % -- 03/03/25 2110 -- -- -- -- 20 -- -- 03/03/25 2100 (!) 134/47 -- -- 74 18 93 % -- 03/03/25 2000 (!) 118/47 97.8 F (36.6 C) Axillary 70 19 95 % -- Physical Exam Constitutional: Appearance: She is obese. She is ill-appearing. HENT: Head: Normocephalic and atraumatic. Cardiovascular: Rate and Rhythm: Normal rate and regular rhythm. Pulses: Normal pulses. Heart sounds: Normal heart sounds. No murmur heard. No gallop. Pulmonary: Effort: Pulmonary effort is normal. No respiratory distress. Breath sounds: Normal breath sounds. No stridor. No wheezing or rhonchi. Abdominal: General: Bowel sounds are decreased. There is distension. Tenderness: There is abdominal tenderness. There is right CVA tenderness and guarding. Musculoskeletal: General: Normal range of motion. Right lower leg: No edema. Left lower leg: No edema. Skin: General: Skin is warm and dry. Coloration: Skin is not jaundiced. Findings: No lesion or rash. Neurological: General: No focal deficit present. Mental Status: She is oriented to person, place, and time. Mental status is at baseline. Psychiatric: Mood and Affect: Mood normal. Thought Content: Thought content normal. SUPPORT DEVICES: [] Ventilator [] BIPAP [x] Nasal Cannula [] Room Air Additional Respiratory Assessments Pulse: 65 Respirations: 15 SpO2: 93 % ASSESSMENT: Patient Active Problem List Diagnosis Date Noted Acute cholecystitis 03/03/2025 S/P total knee replacement using cement, left 10/03/2023 Diabetes mellitus (HCC) 10/03/2023 Hypertension 10/03/2023 PLAN: WEAN PER PROTOCOL: [] No [] Yes [x] N/A ICU PROPHYLAXIS: Stress ulcer: [x] PPI Agent [] [id number] [] Sucralfate [] Other: VTE: [] Enoxaparin [] Unfract. Heparin Subcut [x] EPC Cuffs NUTRITION: [x] NPO [] Tube Feeding (Specify: ) [] TPN [] PO HOME MEDS RECONCILED: [] No [x] Yes CONSULTATION NEEDED: [x] No [] Yes FAMILY UPDATED: [] No [x] Yes TRANSFER OUT OF ICU: [x] No [] Yes Additional Assessment: Principal Problem: Acute cholecystitis Resolved Problems: * No resolved hospital problems. * Acute cholecystitis Duodenal perforation Gallbladder perforation Plan: Neuro: - Dx: No neurological abnormality - Mental status: Alert oriented x 4 - Pain control: Dilaudid 0.5 as needed Resp: - Chest x-ray showed congestive heart failure - Patient requiring 3 L of oxygen. At home does not use any oxygen. - Concerns for COPD. Patient states she has never been diagnosed before. 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 - RR Resp Av.8 Min: 14 Max: 23 Sat O2% SpO2 Av.5 % Min: 89 % Max: 96 % CV: - Dx: Elevated troponins - EKG: First-degree AV block - Echo: Pending - Goal SBP above 100 -Follow-up on echo and troponins. - Patient follows up with cardiology outpatient.. Patient says when she follows only for hypertension - Patient takes Crestor, amlodipine, furosemide, Aldactone, Coreg, lisinopril, aspirin at home. - Cardiology consulted. - Withholding antihypertensives. Will continue with LR at 100 mL. 500 mL of bolus also given. - Patient continues to not maintain blood pressure, will start Levophed. BP: Systolic (24hrs), Av , Min:98 , Max:136 Diastolic (24hrs), Av, Min:27, Max:82 HR: Pulse Av.9 Min: 64 Max: 84 GI/Nutrition: - Dx: Acute cholecystitis, diarrhea for the last 2 weeks, perforated viscus. - Bowel regimen: N/A - GI prophylaxis: Protonix - General Surgery consulted. - Appreciate recommendations. Follow-up on recommendations. - Follow-up on stool study and C. difficile culture - MRI was concerning for perforated acute cholecystitis and incidental finding on pancreas. - Follow-up ultrasound was negative for Henley sign. Correlation with CT scan recommended by radiologist. - Will defer to general surgery. Apparently general surgery wants to take patient to the OR today. - Cardiology consulted for cardiac clearance. Diet:Diet NPO /Fluids/Electrolytes: - Dx: BOO. - BUN/Cr: BUN of 59 and creatinine of 3.53 at outside hospital. Repeat labs ordered. - Electrolytes: Potassium 3.1. - I/O: No intake/output data recorded. - IVF: Normal saline bolus followed by infusion at 100 NR - Will obtain renal ultrasound. - Strict BURKE monitoring. - Cultures negative so far. UA does show leukocyte Estrace moderate. IV Fluids: 100 mL an hour. A bolus of 500 mL also given this morning. I/O: In: 1707.9 [I.V.:670.2] Out: 1370 [Urine:1140] Continue Zosyn. Creatinine improving. Replace electrolytes as needed. Recent Labs 03/03/25 1240 03/03/25 1502 03/03/25 2215 03/04/25 0349 NA 141 138 140 141 K 3.1* 3.1* 3.4* 3.5* CL 97* 100 102 102 CO2 24 21 24 26 BUN 60* 63* 57* 56* CREATININE 2.2* 2.1* 1.7* 1.5* GLUCOSE 224* 219* 205* 191* CALCIUM 8.4* 8.3* 8.4* 8.4* BILITOT 1.6* 1.4* -- 1.3* ALKPHOS 63 61 -- 66 AST 33 30 -- 29 ALT 46* 36* -- 33 Magnesium: Lab Results Component Value Date/Time MG 2.2 03/04/2025 03:49 AM MG 2.2 03/03/2025 03:02 PM Phosphorus: No results found for: PHOS Ionized Calcium: No results found for: CAION Heme: Recent Labs 03/03/25 1240 03/03/25 1502 03/04/25 0349 HGB 12.8 12.6 12.7 stable PT/INR: Lab Results Component Value Date/Time PROTIME 18.2 03/03/2025 03:02 PM INR 1.5 03/03/2025 03:02 PM PTT: No results found for: APTT Complete Blood Count: Recent Labs 03/03/25 1240 03/03/25 1502 03/04/25 0349 WBC 12.6* 11.7* 11.7* RBC 4.58 4.53 4.55 HGB 12.8 12.6 12.7 HCT 41.8 41.7 41.8 MCV 91.3 92.1 91.9 MCH 27.9 27.8 27.9 MCHC 30.6 30.2 30.4 RDW 15.8* 15.7* 15.9* PLT 189 167 164 MPV 10.5 10.3 10.4 ID: Lab Results Component Value Date WBC 11.7 (H) 03/04/2025 Acute cholecystitis Tmax Temp (24hrs), Av.3 F (36.8 C), Min:97.3 F (36.3 C), Max:100.2 F (37.9 C) Follow-up on cultures. So far negative. Antimicrobials: Zosyn Endo: glucose controlled - most recent BGL is Recent Labs 03/03/25 1502 03/03/25 2215 03/04/25 0349 GLUCOSE 219* 205* 191* MSK: N/A Skin: N/A Prophylaxis: DVT JIN stockings - thigh High, OK for primary team to initiate chemoprophylaxis at this time, and No chemoprophylaxis anticoagulation at this time. GI: Protonix Dispo [x] Remain in ICU [] Transfer out of ICU CODE STATUS: Full Code DATA: Complete Blood Count: Recent Labs 03/03/25 1240 03/03/25 1502 03/04/25 0349 WBC 12.6* 11.7* 11.7* RBC 4.58 4.53 4.55 HGB 12.8 12.6 12.7 HCT 41.8 41.7 41.8 MCV 91.3 92.1 91.9 MCH 27.9 27.8 27.9 MCHC 30.6 30.2 30.4 RDW 15.8* 15.7* 15.9* PLT 189 167 164 MPV 10.5 10.3 10.4 Last 3 Blood Glucose: Recent Labs 03/03/25 1240 03/03/25 1502 03/03/25 2215 03/04/25 0349 GLUCOSE 224* 219* 205* 191* PT/INR: Lab Results Component Value Date/Time PROTIME 18.2 03/03/2025 03:02 PM INR 1.5 03/03/2025 03:02 PM PTT: No results found for: APTT Comprehensive Metabolic Profile: Recent Labs 03/03/25 1240 03/03/25 1502 03/03/255 03/04/25 0349 NA 141 138 140 141 K 3.1* 3.1* 3.4* 3.5* CL 97* 100 102 102 CO2 24 21 24 26 BUN 60* 63* 57* 56* CREATININE 2.2* 2.1* 1.7* 1.5* GLUCOSE 224* 219* 205* 191* CALCIUM 8.4* 8.3* 8.4* 8.4* BILITOT 1.6* 1.4* -- 1.3* ALKPHOS 63 61 -- 66 AST 33 30 -- 29 ALT 46* 36* -- 33 Magnesium: Lab Results Component Value Date/Time MG 2.2 03/04/2025 03:49 AM MG 2.2 03/03/2025 03:02 PM Phosphorus: No results found for: PHOS Ionized Calcium: No results found for: CAION Urinalysis: Lab Results Component Value Date/Time NITRU NEGATIVE 03/03/2025 04:16 PM COLORU Yellow 03/03/2025 04:16 PM PHUR 5.5 03/03/2025 04:16 PM WBCUA 20 TO 50 03/03/2025 04:16 PM RBCUA 5 TO 10 03/03/2025 04:16 PM BACTERIA None 03/03/2025 04:16 PM LEUKOCYTESUR MODERATE 03/03/2025 04:16 PM UROBILINOGEN Normal 03/03/2025 04:16 PM BILIRUBINUR NEGATIVE 03/03/2025 04:16 PM GLUCOSEU NEGATIVE 03/03/2025 04:16 PM KETUA NEGATIVE 03/03/2025 04:16 PM Radiology/Imaging: US ABDOMEN LIMITED Specify organ? LIVER, GALLBLADDER Result Date: 03/03/2025 Findings described above could represent acute cholecystitis as reported on concurrent MRCP although sonographic Henley sign is reportedly negative. Consider correlation with CT given the suspected perforation on MRCP. MRI ABDOMEN WO CONTRAST MRCP Result Date: 03/03/2025 1. Findings suspicious for perforated acute cholecystitis. 2. 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 Recommend follow-up pancreas protocol MRI in 2 years. XR CHEST PORTABLE Result Date: 03/03/2025 Findings suggest congestive heart failure MEDICATIONS: Scheduled Meds: sodium chloride flush 5-40 mL IntraVENous 2 times per day piperacillin-tazobactam 3,375 mg IntraVENous Q8H insulin lispro 0-8 Units SubCUTAneous 4x Daily AC & HS pantoprazole (PROTONIX) 40 mg in sodium chloride (PF) 0.9 % 10 mL injection 40 mg IntraVENous Q12H Continuous Infusions: sodium chloride lactated ringers Stopped (03/04/25 0654) dextrose PRN Meds: sodium chloride flush, 5-40 mL, PRN sodium chloride, , PRN ondansetron, 4 mg, Q8H PRN Or ondansetron, 4 mg, Q6H PRN polyethylene glycol, 17 g, Daily PRN acetaminophen, 650 mg, Q6H PRN Or acetaminophen, 650 mg, Q6H PRN HYDROmorphone, 0.5 mg, Q6H PRN glucose, 4 tablet, PRN dextrose bolus, 125 mL, PRN Or dextrose bolus, 250 mL, PRN glucagon (rDNA), 1 mg, PRN dextrose, , Continuous PRN Tulio Medina MD Internal Medicine Resident PGY-1 03/04/2025 7:40 AM Cosigned by Shahriar Ricks MD at 03/04/2025 10:30 PM EDT Associated attestation - Shahriar Ricks MD - 03/04/2025 10:30 PM EDT Attending Physician Statement I have discussed the case of Tosha Mcneal, including pertinent history and exam findings with the resident/fellow/medical student/INTELLECTUAL PROPERTY MANAGER/PA. I have seen and examined the patient and the hernandez elements of the encounter have been performed by me. I agree with the assessment, plan and orders as documented by the resident/fellow/medical student/INTELLECTUAL PROPERTY MANAGER/PA With changes made to the note as needed. Pt was seen during rounds. Review of Systems: In addition to the pertinent positives and negatives as stated within HPI and the review of systemsas documented in their notes, all other systems were reviewed when able to and are reported negative. On 4 L oxygen by nasal cannula Fluid balance +0.3 L Supplement potassium for hypokalemia Improving renal function with creatinine of 1.5 Blood sugars are acceptable Has a prescription proton pump inhibitor was updated Patient was going to go to operating room but subsequently ended up having interventional radiologyprocedure by way of cholecystostomy tube Total critical care time caring for this patient with life threatening, unstable organ failure, including direct patient contact, management of life support systems, review of data including imaging and labs, discussions with other team members and physicians at least 30 Min so far today, excludingprocedures. Shahriar Ricks MD 03/04/2025 10:29 PM * Dione Garcia RPH - 03/03/2025 4:18 PM EDT PHARMACY NOTE: The electrolyte replacement protocol for potassium/magnesium has been discontinued per P&T guidelines because the patient has reduced renal function (CrCl < 30 mL/min). The patient's most recent potassium & magnesium levels are: Recent Labs 03/03/25 1240 03/03/25 1502 K 3.1* 3.1* Estimated Creatinine Clearance: 25 mL/min (A) (based on SCr of 2.1 mg/dL (H)). For patients with decreased renal function (below 30ml/min) needing potassium/magnesium supplementation, please order individual bolus doses with appropriate monitoring. Please contact the inpatient pharmacy with any concerns. Thank you. Dione Garcia RPh, CACP Clinical Pharmacist Medication Management 03/03/2025 4:18 PM * Carlos Garcia MD - 03/03/2025 11:53 AM EDT Attending Physician Statement I have discussed the care of Tosha Mcneal, including pertinent history and exam findings with the resident. I have reviewed the hernandez elements of all parts of the encounter with the resident. I haveseen and examined the patient with the resident. I agree with the assessment and plan and status ofthe problem list as documented. I saw the patient after the patient was brought in to medical ICU. Chart reviewed. Please see full note by critical care resident. Patient was just brought in from [facility] on arrival patient is alert and awake. According to patient symptoms abdominal pain nausea are present for few weeks but especially since last week she went to emergency room few few days ago she was given pain medicine at that time and was discharged but symptoms did not improve and continued to have pain without vomiting with persistent nausea and poor oral intake went to emergency room in [place] last night found to have mild lactic acidosis, BOO and abdominal findings CT scan of the abdomen was done and I was told that CT scan of the abdomen was acute cholecystitis. She received fluid boluses daily started on IV fluid repeat lactic acid was 2.4 initially was greater than 3 she also had troponin elevation and proBNP elevation. 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 Creatinine was initially greater than 3 BUN was 59 most likely relatedto hypovolemia and sepsis. Patient comfortable on nasal cannula systolic blood pressure is 116/46 she is not tachycardic looking pain she has not had any vomiting complain of nausea tender nonrigid tenderness is present in upper quadrants weekly right upper quadrant and epigastrium BOO likely secondary hypovolemia. Acute cholecystitis/cholangitis Sepsis related to acute cholecystitis. Lactic acidosis secondary to sepsis and hypovolemia Troponin elevation possible non-ST elevation UT. proBNP elevation Diarrhea by history. History of hypertension. Probable obstructive sleep apnea. Will get images of CT scan from outlying facility Will get labs here including CBC LFTs chemistry, lactic acid General Surgery consult Will give her fluid bolus. IV fluid to continue. Keep n.p.o. Will start patient on antibiotic with Zosyn. Blood and urine culture. Will get a stool study culture and stool C. difficile. 2D echocardiogram. Will follow up troponin and proBNP. Will get chest x-ray. Cardiology evaluation. Will get surgery evaluation. Ultrasound of the right upper quadrant. Monitor urine output renal function. Renal ultrasound. Discussed with nursing staff, treatment and plan discussed. Discussed with respiratory therapist. Total critical care time caring for this patient with life threatening, unstable organ failure, including direct patient contact, management of life support systems, review of data including imaging and labs, discussions with other team members and physicians at least 40 2 min so far today, excluding procedures. This note is created with the assistance of a speech recognition program. While intent was to generate a document that actually reflects the content of the visit, the document can still have some errors including those of syntax and sound-alike substitutions which may escape proof reading. It such instances, actual meaning can be extrapolated by contextual diversion. Carlos Garcia MD 03/03/2025 11:53 AM documented in this encounterBon [facility] NotePROCEDURE: ULTRASOUND GUIDED CHOLECYSTOSTOMY TUBE PLACEMENT MODERATE CONSCIOUS SEDATION 03/04/2025 HISTORY: ORDERING SYSTEM PROVIDED HISTORY: percutaneous cholecystomy tube TECHNOLOGIST PROVIDED HISTORY: percutaneous cholecystomy tube SEDATION: 2 mg of Versed, 100 mcg of fentanyl over 15 minutes moderate conscious sedation was administered under cardiovascular monitoring performed by interventional radiology nurse. FLUOROSCOPY TIME: 1.1 minute, 885 CGy cm2 TECHNIQUE: Informed consent was obtained after a detailed discussion about the procedure including the risk, benefits, and alternatives. [place] protocol was followed. Sterile gowns, masks, hats and gloves utilized for maximal sterile barrier. A suitable skin site was prepped and draped in sterile fashion following ultrasound localization. An Accustick needle and then she was advanced under ultrasound guidance into the gallbladder and a 0.035 guidewire was used to place a 8 [place]ankan cholecystostomy tube after the fascial tract was dilated. The catheter was sutured to the skin and the patient tolerated the procedure well. The catheter was attached to SHILA bulb drainage. Sample was sent for culture and sensitivity patient tolerated procedure and sedation well. FINDINGS: Ultrasound image demonstrates distended gallbladder. Bilious fluid was sent for culture. Fluoroscopic images confirm placement within the gallbladder lumen. IMPRESSION: Successful ultrasound fluoroscopic guided placement of 8 [place]ankan cholecystostomy tube. Interpreted by: Tanner Baez MD Signed by: Tanner Baez MD 03/04/25 Final resultPremier Health [facility]04-15-2025 NoteCardiovascular Medicine [facility] SUBJECTIVE Chief Complaint Patient presents with Edema Congestive Heart Failure Tosha Mcneal is a 74 y.o. female here for follow-up. HPI PMHx: HFpEF, HTN, HLD 02/19/2025 She c/o increased BLE edema and increased FINLEY since last seen last month. Her weight is up 6#. Her chest feels heavy when she's short of breath. She c/o orthopnea. She has dry cough. Cough is worse in the morning. She feels bloated. Denies any c/o chest pain. 01/17/2025 She notes her FINLEY and leg [...] Allergies Allergen Reactions Jardiance [Empagliflozin] Rash ROS Cardiovascular: Positive for weight gain, dyspnea on exertion and leg swelling. Respiratory: Positive for shortness of breath. OBJECTIVE Visit Vitals BP (!) 112/47 (BP Location: Right arm, Patient Position: Sitting) Pulse 57 Ht 1.524 m (5') Wt 105 kg (232 lb) SpO2 90% BMI 45.31 kg/m??? Smoking Status Never BSA 2.11 m??? Medications: Current Outpatient Medications: allopurinol (Zyloprim) [...] , Rfl: ergocalciferol (Vitamin D-2) 1.25 MG (24273 Units) capsule, Take 1 capsule by mouth 1 (one) time per week., Disp: , Rfl: furosemide (Lasix) 40 mg tablet, Take 1 tablet (40 mg) by mouth if needed in the morning and at bedtime (take for next 2-3 days as needed for increased water retention and leg swelling). (Patient not taking: Reported on 02/19/2025), Disp: 30 tablet, Rfl: 11 Physical Exam [...] sounds are normal. Palpations: Abdomen is soft. (more content not included)...[facility]04-15-2025 Note Patient requested an appointment due to increased edema, and an increase in SOB. Patient states she her legs a very swollen, the legs of her pants are tight and she feels an increase in her abdomen. Patient states she is still sleeping on 1 pillow, she wakes up around 3 and feels its hard to breath, which exacerbates her anxiety. Patient states she gets up and will go out and sleep in her chair which helps with her breathing. Patient states walking increases her SOB. Review of Systems Cardiovascular: Positive for dyspnea on exertion and leg swelling. Respiratory: Positive for shortness of breath.[facility]04-04-2025 Miscellaneous Notes* Telephone Encounter - Wild Centeno DO - 02/08/2025 11:02 AM EDT Rx sent in. She is due for a diabetic /CV recheck documented in this encounterUniversity Of Vermont Medical CenterBluegape Lifestyle [id number] Telephone encounter Note* Telephone Encounter - Wild Centeno DO - 02/08/2025 11:02 AM EDT Rx sent in. She is due for a diabetic /CV recheck [facility]03-13-2025 NoteCardiovascular Medicine [facility] SUBJECTIVE Chief Complaint Patient presents with Congestive [...] , Rfl: ergocalciferol (Vitamin D-2) 1.25 MG (10758 Units) capsule, Take 1 capsule by mouth [...] warm and dry. Ne (more content not included)...[facility]03-13-2025 NotePatient here for 2 week follow up for increased leg swelling and [...] swelling. All other systems reviewed and are negative.[facility] 01-16-2025 NoteUrology Office/Clinic Note Chief Complaint referral HPI Staff 74yr [...] Unspecified hydronephrosis) CT AP w con 12/13/23 [facility] - Unremarkable kidneys and bladder. Personal review: Minimal R hydro. CT AP w con 12/11/24 [facility] - No enhancing renal mass renal mass. [...] -Dietary modifications Follow-up With When Contact Information Shavon Mustafa MD, URL, [facility] [address], [place] [address]- [phone] Additional Instructions: 3 mos w/ GRACE Patient Education Hydronephrosis I, Chaya Alicea, personally scribed for Dr. Mustafa on 01/16/2025 10:08:16. . Documentation recorded by the scribeChaya, accurately reflects the services(s) I performed and [...] Stroke: Mother. Immunizations Vaccin (more content not included)...[facility]:Result Comment: Electronically Signed By: Shavon Mustafa MD\.br\Date and Time Signed: 01/16/25 10:28EDT\.br\Electronically Co-Signed By: Chaya Alicea\.br\Date and Time Co-Signed: 01/16/25 10:08 [id number] NotePatient Education Urology Hydronephrosis Hydronephrosis is the swelling [...] occur when a baby is developing in thewomb. These can include problems in the kidneys [...] how long it has been there, and whatcaused it. The goal of treatment is to [...] Follow these instructions at home: ??? Take ztim-oog-gbwnouk and prescription medicines only as told by your health care provider. ??? If you were prescribed an antibiotic medicine, take it exactly as told by your health care provider. Do not stop taking the antibiotic even if you start to feel better. ??? Rest and return to your normal activities as told by your health care provider. Ask your healthcare provider what activities are safe for you. [...] provider. Document Revised: 02/10/2021 Document Reviewed: 02/10/2021 Digital Message Display Patient Education ? 2023 [employer].[facility] 01-03-2025 NotePatient here for 6 mo follow up diastolic dysfunction, hypertension, and hyperlipidemia. [...] pain. All other systems reviewed and are negative.[facility] 01-03-2025 NoteCardiovascular Medicine [place] [facility] SUBJECTIVE Chief Complaint Patient presents with [...] , Rfl: ergocalciferol (Vitamin D-2) 1.25 MG (29899 Units) capsule, Take 1 capsule by mouth [...] No results found f (more content not included)...[facility]02-19-2025 Evaluation note* Diagnosis Onset Date Resolution Status Admit [...] 12:59pm Melanoma chronic December 26, 2024 12:59pm [facility] Work Phone: [phone] Miscellaneous Notes* Telephone Encounter - Leslie Lawton - 08/20/2024 1:30 PM EDT Vitiamin d 2 needs sent as well documented in this encounterUniversity Of Vermont Medical CenterShave Club10-14-2024 Telephone encounter Note* Telephone Encounter - Leslie Lawton - 08/20/2024 1:30 PM EDT Vitiamin d 2 needs sent as well [employer]10-10-2024 History of Present illness Narrative* Giuseppe Vipin Jama, BOX OFFICE CLERK-MASTERCAM PROGRAMMER - 08/16/2024 3:20 PM EDT Images from the original note were not included. [address] [place] [id number] SUBJECTIVE: Patient ID: Tosha Mcneal is a 73 y.o. female. Chief Complaint Patient presents with sciatica right side Pain started approximately 2 weeks. Denies trauma or any precipitating factors. Pain is located right SI joint and gluteal region. Alleviating methods tried including walking, stretching,and Tylenol. Limited results. Denies bowel or bladder incontinence. Back Pain This is a recurrent problem. The current episode started 1 to 4 weeks ago. The problem occurs daily. The problem has been waxing and waning since onset. The pain is present in the gluteal and sacro-iliac. The quality of the pain is described as aching and burning. The pain does not radiate. The pain is at a severity of 6/10. The pain is The same all the time. The symptoms are aggravated by lying down, sitting, standing, twisting, position and bending. Stiffness is present In the morning. Associated symptoms include tingling and weakness. Pertinent negatives include no abdominal pain, bladder incontinence, bowel incontinence, chest pain, dysuria, fever, headaches, leg pain, numbness, paresis, paresthesias, pelvic pain, perianal numbness or weight loss. She has tried walking for the symptoms. The treatment provided no relief. The following portions of the patient's history were reviewed and updated as appropriate: allergies, current medications, past family history, past medical history, past social history, past surgicalhistory and problem list. Past Surgical History: Procedure Laterality Date CARPAL TUNNEL RELEASE Right CATARACT EXTRACTION, BILATERAL CYST REMOVAL Tailbone LYMPH NODE BIOPSY Left ORBITAL FRACTURE SURGERY Left REPLACEMENT TOTAL KNEE Left 10/03/2023 SHOULDER SURGERY Left Rotator Cuff SKIN CANCER EXCISION Right Right Arm TONSILLECTOMY Past Medical History: Diagnosis Date Acute back pain with sciatica, right Arthritis Hyperlipidemia Immunization History Administered Date(s) Administered COVID-19, mRNA, LNP-S, PF, 30mcg/0.3mL Dose 01/01/2021, 01/22/2021, 10/06/2021 Influenza (IM) Preservative Free 09/07/2015, 09/05/2016 Influenza Vaccine, Quadrivalent, Adjuvanted 09/12/2023 Influenza, High-dose, Quadrivalent 10/08/2022 Influenza, Injectable, MDCK, Quadrivalent 09/03/2019 Influenza, Injectable, Mdck, Preservative Free, Quad 10/24/2017 Influenza, Injectable, Quadrivalent 10/12/2020 Influenza, Trivalent, Adjuvanted 08/16/2024 Pneumococcal Conjugate 13-Valent 08/05/2016 Pneumococcal Polysaccharide 10/24/2017 Tdap 09/18/2012 Varicella 01/12/2013 REVIEW OF SYSTEMS: Review of Systems Constitutional: Negative for chills, fever and weight loss. HENT: Negative. Eyes: Negative for visual disturbance. Respiratory: Negative for chest tightness and shortness of breath. Cardiovascular: Negative for chest pain and palpitations. Gastrointestinal: Negative. Negative for abdominal pain and bowel incontinence. Endocrine: Negative. Genitourinary: Negative for bladder incontinence, dysuria, menstrual problem and pelvic pain. Musculoskeletal: Positive for arthralgias and back pain. Skin: Negative. Allergic/Immunologic: Negative. Neurological: Positive for tingling and weakness. Negative for syncope, facial asymmetry, numbness,headaches and paresthesias. Hematological: Does not bruise/bleed easily. Psychiatric/Behavioral: Negative. PHYSICAL EXAMINATION: Vitals: 08/16/24 1518 BP: 140/64 BP Site: Left Arm BP Postition: Sitting Pulse: 62 Resp: 18 Temp: 36.2 C (97.2 F) TempSrc: Temporal SpO2: 95% Weight: 101.7 kg (224 lb 3.2 oz) Height: 152.4 cm (5') Patient noted to have elevated BMI and the following intervention(s) were applied: encouragement toexercise. Physical Exam Vitals and nursing note reviewed. Constitutional: General: She is not in acute distress. Appearance: She is well-developed. She is not diaphoretic. HENT: Head: Normocephalic and atraumatic. Right Ear: Tympanic membrane and external ear normal. Left Ear: Tympanic membrane and external ear normal. Nose: Nose normal. Mouth/Throat: Mouth: Mucous membranes are moist. Pharynx: No oropharyngeal exudate. Eyes: General: Right eye: No discharge. Left eye: No discharge. Conjunctiva/sclera: Conjunctivae normal. Pupils: Pupils are equal, round, and reactive to light. Neck: Thyroid: No thyromegaly. Vascular: No JVD. Cardiovascular: Rate and Rhythm: Normal rate and regular rhythm. Heart sounds: Normal heart sounds. No murmur heard. No friction rub. No gallop. Pulmonary: Effort: Pulmonary effort is normal. Breath sounds: Normal breath sounds. Abdominal: General: Bowel sounds are normal. There is no distension. Palpations: Abdomen is soft. There is no mass. Tenderness: There is no abdominal tenderness. Musculoskeletal: General: Tenderness present. Cervical back: Normal range of motion and neck supple. Lumbar back: Bony tenderness present. Decreased range of motion. Negative right straight leg raise test and negative left straight leg raise test. Back: Comments: Tenderness with palpation over right gluteal region. There is muscle spasm present. Lymphadenopathy: Cervical: No cervical adenopathy. Skin: General: Skin is warm and dry. Capillary Refill: Capillary refill takes less than 2 seconds. Neurological: Mental Status: She is alert and oriented to person, place, and time. Deep Tendon Reflexes: Reflexes are normal and symmetric. Psychiatric: Mood and Affect: Mood normal. Behavior: Behavior normal. Thought Content: Thought content normal. Judgment: Judgment normal. ASSESSMENT/PLAN: Tosha was seen today for sciatica right side. Diagnoses and all orders for this visit: Lumbar back pain - traMADoL (ULTRAM) 50 mg tablet; Take 1 tablet (50 mg total) by mouth every 8 (eight) hours as needed for pain for up to 7 days. Lumbar paraspinal muscle spasm - tiZANidine (ZANAFLEX) 2 mg tablet; Take 1 tablet (2 mg total) by mouth every 8 (eight) hours as needed for muscle spasms. - ketorolac (TORADOL) injection 15 mg Need for influenza vaccination - Influenza, Trivalent, Adjuvanted Patient is Type 2 DM, last A1c 8.5%. Steroids are not her best option today. Toradol 15 mg IM administered in the office today She has tried Tylenol, not effective. Start tramadol 50 mg every 8 hours PRN for pain. 7 day supply Tizanidine 2 mg oral every 8 hours PRN muscle spasms. Encourage back and leg stretching. May apply heat or ice to affected area x20 minutes episodes PRN Influenza vaccine administered today Body mass index is 43.79 kg/m . Patient noted to have elevated BMI and the following intervention(s) were applied: Discussed current weight today. Consider healthy food choices, portion control. Avoid sugary beverages and high concentrated sweets. Routine exercise regimen encouraged. ALL QUESTIONS ANSWERED Total time spent was 25 minutes: Preparing to see the patient (e.g., review of tests) Obtaining and/or reviewing separately obtained history Performing a medically appropriate examination and/or evaluation Counseling and educating the patient/family/caregiver Ordering medications, tests, or procedures Follow-up: Next scheduled Sooner if needed TANNER Ramirez 08/20/24 1252 documented in this encounterWilson [facility] Hospital09-09-2024 History of Present illness Narrative* Wild Centeno, DO - 07/16/2024 8:30 AM EDT Subjective Patient ID: Tosha Mcneal is a 73 y.o. female. Alpa presents today for a general recheck for multiple problems. She is taking her medications except her insulin. She is not having any side effects. She saw the specification writer who increased her furosemide to twice a day temporarily and then changed her dose from 20 mg to 40 mg daily. She has swelling in both lower legs chronically. Her left leg is always larger than her right leg. She does not wear her compression hose. She had her left knee replaced last year and still has numbness at the site although she does get occasional tingling at the site. There is no pain. She has a follow up appointment. Otherwise she has no new problems. Diabetes She presents for her follow-up diabetic visit. She has type 2 diabetes mellitus. There are no hypoglycemic complications. Symptoms are stable. There are no diabetic complications. Risk factors for coronary artery disease include diabetes mellitus, dyslipidemia, family history, obesity, sedentary lifestyle, post-menopausal and hypertension. Home blood sugar record trend: She has a Dexcom. The following portions of the patient's history were reviewed and updated as appropriate: allergies, current medications, past family history, past medical history, past social history, past surgicalhistory, problem list, and medication reconciliation was completed including current medication andpost discharge medication. Review of Systems Respiratory: Negative. Objective Physical Exam Vitals reviewed. Constitutional: General: She is not in acute distress. Appearance: She is morbidly obese. HENT: Head: Normocephalic. Cardiovascular: Rate and Rhythm: Normal rate and regular rhythm. Pulses: Normal pulses. Heart sounds: Normal heart sounds. No murmur heard. Pulmonary: Effort: Pulmonary effort is normal. No respiratory distress. Breath sounds: Normal breath sounds. No wheezing, rhonchi or rales. Musculoskeletal: Cervical back: Neck supple. No rigidity. Right lower le+ Pitting Edema present. Left lower le+ Pitting Edema present. Right foot: Bunion present. Neurological: General: No focal deficit present. Mental Status: She is alert and oriented to person, place, and time. Psychiatric: Mood and Affect: Mood normal. Behavior: Behavior normal. Thought Content: Thought content normal. Judgment: Judgment normal. Assessment/Plan Tosha was seen today for diabetes. Diagnoses and all orders for this visit: 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 ([facility]) - Hemoglobin A1c; Future - Microalbumin - Albumin: Creatinine Urine Ratio; Future Last GFR was 73 which is stage 2 chronic kidney disease. Check A1c and ACR. Type 2 diabetes mellitus with stage 3a chronic kidney disease, with long-term current use of insulin ([facility]) - TSH; Future Check TSH. Enlarged pituitary gland ([facility]) Check TSH Morbid obesity ([facility]) Check TSH. She would benefit from weight loss. It is contributing to diabetes, high blood pressure and high cholesterol. Other orders - furosemide (LASIX) 40 mg tablet; Take 1 tablet (40 mg total) by mouth daily. - clobetasoL (TEMOVATE) 0.05 % ointment; Apply 1 Application topically in the morning and 1 Application before bedtime. documented in this encounterSt. Francis Hospitalca [facility] [id number] Miscellaneous Notes* Telephone Encounter - Amanda Poole CMA - 06/13/2024 12:29 PM EDT Patient was prescribed a cream for dryness of her skin on the outside of private area. She said Irene prescribed it years ago. Can you please look and see what it might be and send a script in for this? documented in this encounterWilson [facility] Telephone encounter Note* Telephone Encounter - Amanda Poole CMA - 06/13/2024 12:29 PM EDT Patient was prescribed a cream for dryness of her skin on the outside of private area. She said Irene prescribed it years ago. Can you please look and see what it might be and send a script in for this? [facility]07-16-2024 Miscellaneous Notes* Telephone Encounter - Leslie Lawton - 05/22/2024 11:44 AM EDT Patient called and is due for a mammo and would like [facility]. Please and thank you documented in this encounterWilson Memorial Hospital07-16-2024 Telephone encounter Note* Telephone Encounter - Leslie Lawton - 05/22/2024 11:44 AM EDT Patient called and is due for a mammo and would like it sent to [facility]. Please and thank you [facility]05-14-2024 History of Present illness Narrative* Wild Centeno, - 03/20/2024 11:10 AM EDT Subjective SUBJECTIVE: Patient ID: Tosha Mcneal is a 73 y.o. female who presents for a Medicare Annual Wellness exam. HPI The following portions of the patient's history were reviewed and updated as appropriate: allergies, current medications, past family history, past medical history, past social history, past surgicalhistory and problem list. AWV FLOWSHEET : Lifestyle Assessment Do you smoke or use smokeless tobacco?: No If you smoke or use smokeless tobacco, are you ready to quit?: NA Are you exposed to secondhand smoke?: No On average, how many drinks of alcohol do you consume in a week?: None Do you exercise for 30 or more minutes on average at least 3 days a week?: Often Do you have any tooth, denture, or oral problems?: No Do you snore or has anyone told you that you snore?: (!) Yes Do you try to eat a balanced diet?: Yes Do you experience leakage of urine, also known as urinary incontinence?: Never Do you have difficulty performing any of these activities? (check all that apply): None Do you have difficulty performing any of these activities? (check all that apply): None Fall Risk Fall Risk Assessment Completed?: Yes Have you fallen in the past year?: (!) Yes How many times?: 1 Were you injured?: (!) Yes Are you worried about falling?: No Do you feel unsteady when standing or walking?: No Risk Stratification: High Risk Depression Screening Little interest or pleasure in doing things: Not at all Feeling down, depressed, or hopeless: Not at all Trouble falling or staying asleep, or sleeping too much: Not at all Feeling tired or having little energy: Not at all Poor appetite or overeating: Not at all Feeling bad about yourself - or that you are a failure or have let yourself or your family down: Not at all Trouble concentrating on things, such as reading the newspaper or watching television: Not at all Moving or speaking so slowly that other people could have noticed. Or the opposite - being so fidgety or restless that you have been moving around a lot more than usual: Not at all Thoughts that you would be better off , or of hurting yourself in some way: Not at all PEG Scale Safety Assessment Do you have throw rugs on the floor?: No Do you feel safe at your home?: Yes Do you feel unsteady when walking?: No Are you having difficulty with driving?: No Do you have trouble seeing?: No What assistive device do you use? (check all that apply): None Hearing Assessment Do you strain or struggle to hear/understand conversations?: No Do you have trouble hearing the television or radio when others do not?: No Does your family ever voice concerns about your hearing?: No Do you wear hearing aid/s?: No Personal Health During the past 4 weeks, how would you rate your overall health?: (!) Fair Do you understand how to take all of your medications?: Yes How confident are you that you can control and manage most of your health problems?: Very confident In the past 12 months, how many times have you been hospitalized?: (!) 2 or more End of Life Planning Do you have a living will?: Yes Do you have a durable power of managing attorney?: Yes Cognitive Screening Do you have trouble remembering or recalling facts or events?: No Do family members or caregivers report that you have difficulty remembering things?: No 6-Cit: Normal REVIEW OF SYSTEMS: Review of Systems Objective PHYSICAL EXAMINATION: Vitals: 03/20/24 1103 Weight: 97.8 kg (215 lb 9.6 oz) Height: 152.4 cm (5') Physical Exam Assessment/Plan ASSESSMENT/PLAN Encounter Diagnoses Name Primary? Medicare annual wellness visit, subsequent Yes Screening for depression Health maintenance discussed. Depression screen was negative. At least 3 minute spent administering in discussing. Cognitive evaluation did not reveal any impairment. She has advanced directives in place. Return in about 1 year (around 03/20/2025). documented in this encounterSt. Francis HospitalXSI [facility] [id number] History of Present illness Narrative* Wild Centeno DO - 01/11/2024 11:00 AM EST Subjective Patient ID: Tosha Mcneal is a 73 y.o. female. Tosha presents for diabetic recheck. She is taking her medications. She has a dexcom but it isn'tworking. They are sending 2 new ones. Her toe is feeling better but it still aches. The following portions of the patient's history were reviewed and updated as appropriate: allergies, current medications, past family history, past medical history, past social history, past surgicalhistory, problem list, and medication reconciliation was completed including current medication andpost discharge medication. Review of Systems Constitutional: Negative. [...] disease, with long-term current use of insulin ([facility]) - Comprehensive metabolic panel; Future - Hemoglobin A1c; Future - Magnesium; Future - Parathyroid Hormone, intact; Future - Phosphorus; Future - Vitamin D 25 hydroxy; Future Check A1c and CKD labs Gout, unspecified cause, unspecified chronicity, unspecified site - Uric acid; Future Check uric acid Mixed hyperlipidemia - Lipid panel; Future jheck lipid panel Morbid obesity ([facility]) She is obese. It is contributing to DM HTN and high cholesterol . She would benefit from wt loss. 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 ([facility]) F/U with specialists as dir. documented in this encounterUniversity Of Vermont [facility] CenterMedica [facility] [id number] History of Present illness Narrative* Wild Centeno, DO - 12/23/2023 9:40 AM EST Subjective Patient ID: Tosha Mcneal is a [...] past medical history, past social history, past surgicalhistory, problem list, and medication reconciliation was completed including current medication andpost discharge medication. Review of Systems Objective Physical [...] is a drug interaction with Coreg and thiswas discussed with her. She is willing to try. She has a problem we will we will up for prednisone next. She did not tolerate the Motrin. She does not recall what issue she had with Indocin. Start allopurinol after the gout flare subsides. Can possibly have a worsening of symptoms initially with allopurinol but should improve over time. She should stay on it snf. 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 ([facility]) GFR reviewed and is stable at 55. No dosing adjustments required. Other orders - allopurinoL (ZYLOPRIM) 100 mg tablet; Take 1 tablet (100 mg total) by mouth in the morning. Startafter flare up resolves. documented in this encounterSt. Francis HospitalThe fresh Group [facility] [id number] Progress note Author Rose Ohara [facility] April 13, 2023 5:59pm Note Date/Time April 13, 2023 9:30a m [facility] [place] [id number] Hem/Onc Follow Up Note - OP Signed Patient: Tosha Mcneal MR#: [id number] : 1950 Acct:[id number] Age/Sex: 72 / F Type: REG RCR [...] She is leaving for a [place] this month. Continue 4 month followup with [...] related toxicities. Now following with dermatology at [facility] with no recurrence on skin exam. Surveillance ultrasound right axilla without recurrence. She will have routing f/u with wa in [address] CAP and [...] with wide local excision 09/05/2020 at [facility]. Outside review at [facility] showed at least 2.1 cm Breslow depth melanoma with 2 cm negative margins. She was referred to Dr. Diallo Berger at [facility]. Right axillary sentinel lymph node biopsy [...] liver lesion. Her case was presented at [facility] cutaneous tumor board on 12/15/2020rior to her metastatic staging. Discussion of referral to medical oncology fordiscussion of immunotherapy. The patient is now returning for medical oncology follow-up after review of all prior pathology and imaging. BRAF status is stillpending. She has healed well. She is a 10-year history of diabetes. She resides in [facility]. Today we reviewed immunotherapy counseling [...] 1. Initial wide local excision at [facility] 09/05/[address] Hernando Mccartney 2. Right sentinel lymph node biopsy 11/28/[address] at [facility] [address] Diallo Berger 3. Delay of immunotherapy due to [...] cit 4.5 mg-lutein 2.5 mg-zeaxan chew tablet ([employer]) 1 tab PO DAILY eye health 04/11/19 [...] % (Auto) 62.3, Lymph % (Auto) 26.0, Washburn % (Auto) 8.6, Eos % (Auto) 2.2, Baso % (Auto) 0.9, Nucleat RBC Rel Count 0.1, Neut # (Auto) 4.3, Lymph # (Auto) 1.8, Washburn # (Auto) 0.6, Eos # (Auto) 0.2, [...] Plan - TNM Staging Staging: Stage: pIIIC ([id number]) Melanoma 5 year survival: 69% (1) Melanoma [...] for micrometastatic involvement without extracapsular extension. Dr. Diallo Berger at [facility] surgical oncology group ordered metastatic staging with [...] for coordination of care (as documented) and ozvz-gb-[id number] counseling of patient and/or family. Dictated By: Rose Ohara MD DD/ 8 Signed By: <Electronically signed by MD Rose Ohara> 04/13/23 44[address] [facility] Work Phone: [phone]) 384-907602-16-2023 Progress note Author Rose Ohara [facility] December 23, 2022 11:01am Note Date/Time December 23, 2022 9:06am [facility] [place] [address] Hem/Onc Follow Up Note - OP Signed Patient: Tosha Mcneal MR#: [id number] : 1950 Acct:[id number] Age/Sex: 72 / F Type: REG RCR [...] related toxicities. Now following with dermatology at [facility] with no recurrence on skin exam. Surveillance ultrasound right axilla without recurrence. She will have routing f/u with wa in [address] CAP and [...] with wide local excision 09/05/2020 at [facility]. Outside review at [facility] showed at least 2.1 cm Breslow depth melanoma with 2 cm negative margins. She was referred to Dr. Diallo Berger at [facility]. Right axillary sentinel lymph node biopsy [...] liver lesion. Her case was presented at [facility] cutaneous tumor board on 12/15/2020rior to her metastatic staging. Discussion of referral to medical oncology fordiscussion of immunotherapy. The patient is now returning for medical oncology follow-up after review of all prior pathology and imaging. BRAF status is stillpending. She has healed well. She is a 10-year history of diabetes. She resides in [facility]. Today we reviewed immunotherapy counseling [...] 1. Initial wide local excision at [facility] 09/05/[address] Hernando Mccartney 2. Right sentinel lymph node biopsy 11/28/[address] at [facility] [address] Diallo Berger 3. Delay of immunotherapy due to [...] cit 4.5 mg-lutein 2.5 mg-zeaxan chew tablet ([employer] [facility]) 1 tab PO DAILY eye [...] Active Protocol: Document 06/29/21 10:47 AL (Rec: 08/23/21 10:49 AL [id number]) Distress Screening Distress Score: [...] % (Auto) 60.2, Lymph % (Auto) 24.8, Washburn % (Auto) 11.9, Eos % (Auto) 1.9, Baso % (Auto) 1.2, Nucleat RBC Rel Count 0.2, Neut # (Auto) 4.1, Lymph # (Auto) 1.7, Washburn # (Auto) 0.8, Eos # (Auto) 0.1, [...] Plan - TNM Staging Staging: Stage: pIIIC ([id number]) Melanoma 5 year survival: 69% (1) Melanoma [...] for micrometastatic involvement without extracapsular extension. Dr. Diallo Berger at [facility] surgical oncology group ordered metastatic staging with [...] for coordination of care (as documented) and ogdt-eq-[id number] counseling of patient and/or family. Dictated By: Rose Ohara MD DD/ 4 Signed By: <Electronically signed by MD Rose Ohara> 12/23/22 [address] [facility] Work Phone: 1([phone]) 584-969411-17-2022 Progress note Author Rose Ohara [facility] September 23, 2022 10:21am Note Date/Time September 23, 2022 8:36am [facility] [place] [address] Hem/Onc Follow Up Note - OP Signed Patient: Tosha Mcneal MR#: [id number] : 1950 Acct:[id number] Age/Sex: 71 / F Type: REG RCR [...] related toxicities. Now following with dermatology at [facility] with no recurrence on skin exam. Surveillance ultrasound right axilla without recurrence. She will have routing f/u with wa in [address] CAP and [...] with wide local excision 09/05/2020 at [facility]. Outside review at [facility] showed at least 2.1 cm Breslow depth melanoma with 2 cm negative margins. She was referred to Dr. Diallo Berger at [facility]. Right axillary sentinel lymph node biopsy [...] liver lesion. Her case was presented at [facility] cutaneous tumor board on 12/15/2020rior to her metastatic staging. Discussion of referral to medical oncology fordiscussion of immunotherapy. The patient is now returning for medical oncology follow-up after review of all prior pathology and imaging. BRAF status is stillpending. She has healed well. She is a 10-year history of diabetes. She resides in [facility]. Today we reviewed immunotherapy counseling [...] 1. Initial wide local excision at [facility] 09/05/[address] Hernando Mccartney 2. Right sentinel lymph node biopsy 11/28/2020 at [facility] [address] Diallo Berger 3. Delay of immunotherapy due to [...] cit 4.5 mg-lutein 2.5 mg-zeaxan chew tablet ([facility]) 1 tab PO DAILY eye [...] % (Auto) 65.7, Lymph % (Auto) 21.6, Washburn % (Auto) 9.7, Eos % (Auto) 2.0, Baso % (Auto) 1.0, Neut # (Auto) 4.5, Lymph # (Auto) 1.5, Washburn # (Auto) 0.7, Eos# (Auto) 0.1, Baso [...] imaging as symptoms warrant. Impression dictated by: Litzy Boggs M.D.09/21/2022 10:15 AM Assessment and Plan - TNM Staging Staging: Stage: pIIIC ([id number]) Melanoma 5 year survival: 69% (1) Melanoma [...] for micrometastatic involvement without extracapsular extension. Dr. Diallo Berger at [facility] surgical oncology group ordered metastatic staging with [...] for coordination of care (as documented) and xxsm-te-xjud counseling of patient and/or family. Dictated By: Rose Ohara MD DD/ 0835 Signed By: <Electronically signed by MD Rose Ohara> 09/23/22 [address] [facility] Work Phone: [phone]) 812-688008-25-2022 Progress note Author Rose Ohara [facility] July 01, 2022 8:35pm Note Date/Time July 01, 2022 10 :39am [facility] [place] [address] Hem/Onc Follow Up Note - OP Signed Patient: Tosha Mcneal MR#: [id number] : 1950 Acct:[id number] Age/Sex: 71 / F Type: REG RCR [...] related toxicities. Now following with dermatology at [facility] with no recurrence on skin exam. Surveillance [...] with wide local excision 09/05/2020 at [facility]. Outside review at [facility] showed at least 2.1 cm Breslow depth melanoma with 2 cm negative margins. She was referred to Dr. Diallo Berger at [facility]. Right axillary sentinel lymph node biopsy [...] liver lesion. Her case was presented at [facility] cutaneous tumor board on 12/15/2020rior to her metastatic staging. Discussion of referral to medical oncology fordiscussion of immunotherapy. The patient is now returning for medical oncology follow-up after review of all prior pathology and imaging. BRAF status is stillpending. She has healed well. She is a 10-year history of diabetes. She resides in [facility]. Today we reviewed immunotherapy counseling [...] 1. Initial wide local excision at [facility] 09/05/[address] Hernando Mccartney 2. Right sentinel lymph node biopsy 11/28/2020 at [facility] by Dr. Diallo Berger 3. Delay of immunotherapy due to [...] % (Auto) 66.8, Lymph % (Auto) 18.8, Washburn % (Auto) 9.5, Eos % (Auto) 3.7, Baso % (Auto) 1.2, Neut # (Auto) 5.6, Lymph # (Auto) 1.6, Washburn # (Auto) 0.8, Eos #(Auto) 0.3, Baso [...] No acute intra-abdominal pathology. Impression dictated by: Litzy Boggs M.D.06/29/2022 2:47 PM Assessment and Plan - TNM Staging Staging: Stage: pIIIC ([id number]) Melanoma 5 year survival: 69% (1) Melanoma [...] for micrometastatic involvement without extracapsular extension. Dr. Diallo Berger at [facility] surgical oncology group ordered metastatic staging with [...] for coordination of care (as documented) and htgy-fl-njmc counseling of patient and/or family. Dictated By: Rose Ohara MD DD/ 1038 Signed By: <Electronically signed by MD Rose Ohara> 07/01/222034 [facility] Work Phone: [phone]) 360-642805-26-2022 Progress note Author Rose Ohara [facility] April 01, 2022 1:09pm Note Date/Time March 31, 2022 1:30p m [facility] [place] [address] Hem/Onc Follow Up Note - OP Signed Patient: Tosha Mcneal MR#: [id number] : 1950 Acct:[id number] Age/Sex: 71 / F Type: REG RCR [...] related toxicities. Now following with dermatology at [facility] with no recurrence on skin exam. Surveillance [...] with wide local excision 09/05/2020 at [facility]. Outside review at [facility] showed at least 2.1 cm Breslow depth melanoma with 2 cm negative margins. She was referred to Dr. Diallo Berger at [facility]. Right axillary sentinel lymph node biopsy [...] liver lesion. Her case was presented at [facility] cutaneous tumor board on 1prior to her metastatic staging. Discussion of referral to medical oncology fordiscussion of immunotherapy. The patient is now returning for medical oncology follow-up after review of all prior pathology and imaging. BRAF status is stillpending. She has healed well. She is a 10-year history of diabetes. She resides in [facility]. Today we reviewed immunotherapy counseling [...] 1. Initial wide local excision at [facility] 09/05/[address] Hernando Mccartney 2. Right sentinel lymph node biopsy 11/28/2020 at [facility] by Dr. Diallo Berger 3. Delay of immunotherapy due to [...] cit 4.5 mg-lutein 2.5 mg-zeaxan chew tablet ([employer]) 1 tab PO DAILY 04/11/19 [History Confirmed [...] % (Auto) 64.5, Lymph % (Auto) 22.3, Washburn % (Auto) 9.5, Eos % (Auto) 2.6, Baso % (Auto) 1.1, Neut # (Auto) 4.8, Lymph # (Auto) 1.7, Washburn # (Auto) 0.7, Eos# (Auto) 0.2, Baso [...] Plan - TNM Staging Staging: Stage: pIIIC ([id number]) Melanoma 5 year survival: 69% (1) Melanoma [...] for micrometastatic involvement without extracapsular extension. Dr. Diallo Berger at [facility] surgical oncology group ordered metastatic staging with [...] for coordination of care (as documented) and zpem-xm-[id number] counseling of patient and/or family. Dictated By: Rose Ohara MD DD/ 1330 Signed By: <Electronically signed by MD Rose Ohara> 04/01/22 1309 [facility] Work Phone: 1([phone]) 285-527902-23-2022 Progress note Author Rose Ohara [facility] December 30, 2021 3:45pm Note Date/Time December 30, 2021 10:04[facility] [place] [address] Hem/Onc Follow Up Note - OP Signed Patient: Tosha Mcneal MR#: [id number] : 1950 Acct:[id number] Age/Sex: 71 / F Type: REG RCR Copies to: DO Diallo Haddad MD Richard M Wiecek, MD~ Subjective [...] related toxicities. Now following with dermatology at [facility] with no recurrence on skin exam. Surveillance ultrasound right axilla without recurrence. She will have routing f/u with wa in [address] CAP and [...] with wide local excision 09/05/2020 at [facility]. Outside review at [facility] showed at least 2.1 cm Breslow depth melanoma with 2 cm negative margins. She was referred to Dr. Diallo Berger at [facility]. Right axillary sentinel lymph node biopsy [...] liver lesion. Her case was presented at [facility] cutaneous tumor board on 12/15/2020rior to her metastatic staging. Discussion of referral to medical oncology fordiscussion of immunotherapy. The patient is now returning for medical oncology follow-up after review of all prior pathology and imaging. BRAF status is stillpending. She has healed well. She is a 10-year history of diabetes. She resides in [facility]. Today we reviewed immunotherapy counseling [...] 1. Initial wide local excision at [facility] 09/05/[address] Hernando Mccartney 2. Right sentinel lymph node biopsy 11/28/2020 at [facility] by Dr. Diallo Berger 3. Delay of immunotherapy due to [...] cit 4.5 mg-lutein 2.5 mg-zeaxan chew tablet ([employer]) 1 tab PO DAILY 04/11/19 [History Confirmed [...] EXTREMITIES: No edema, cyanosis or clubbing. No Iga sign. NEUROLOGICAL: Alert and oriented. Cranial nerves [...] are noted, as above. Impression dictated by: Litzy Boggs M.D.12/28/2021 1:50 PM Assessment and Plan - TNM Staging Staging: Stage: pIIIC ([id number]) Melanoma 5 year survival: 69% (1) Melanoma [...] for micrometastatic involvement without extracapsular extension. Dr. Diallo Berger at [facility] surgical oncology group ordered metastatic staging with [...] for coordination of care (as documented) and [id number] counseling of patient and/or family. Dictated By: Rose Ohara MD DD/ 1004 Signed By: <Electronically signed by MD Rose Ohara> 12/30/21 4429 [facility] Work Phone: [phone]) 181-467911-25-2021 Progress note Author Rose Ohara [facility] October 01, 2021 12:50pm Note Date/Time September 30, 2021 10:46am [facility] [place] at [address] [address] Hem/Onc Follow Up Note - OP Signed with Addenda Patient: Tosha Mcneal MR#: [id number] : 1950 Acct:[id number] Age/Sex: 70 / F Type: REG RCR Copies to: DO Bj Haddad MD Richard M Wiecek, MD~ ADDENDUM1 Correction 09/30/2021: Second line should note Account Consultant is Dr. Bj Robison in [place]--last skin exam 09/29/2021. Addendum Dictated By: MD [...] related toxicities. Now following with dermatology at [facility] with no recurrence on skin exam. Surveillance ultrasound right axilla without recurrence. She will have routing f/u with wa in [address] CAP and [...] with wide local excision 09/05/2020 at [facility]. Outside review at [facility] showed at least 2.1 cm Breslow depth melanoma with 2 cm negative margins. She was referred to Dr. Diallo Berger at [facility]. Right axillary sentinel lymph node biopsy [...] liver lesion. Her case was presented at [facility] cutaneous tumor board on 1prior to her metastatic staging. Discussion of referral to medical oncology fordiscussion of immunotherapy. The patient is now returning for medical oncology follow-up after review of all prior pathology and imaging. BRAF status is stillpending. She has healed well. She is a 10-year history of diabetes. She resides in [facility]. Today we reviewed immunotherapy counseling [...] 1. Initial wide local excision at [facility] 09/05/[address] Hernando Mccartney 2. Right sentinel lymph node biopsy 11/28/[address] at [facility] [address] Diallo Berger 3. Delay of immunotherapy due to [...] Negative for environmental allergies and food allergies. COUNTS INCLUDE 234 BEDS AT [facility] - History Attestation statement: The following [...] cit 4.5 mg-lutein 2.5 mg-zeaxan chew tablet ([facility]) 1 tab PO DAILY 04/11/19 [History Confirmed [...] thickening to suggest malignancy. Impression dictated by: Litzy Boggs M.D.09/24/2021 1:03 PM Assessment and Plan - TNM Staging Staging: Stage: pIIIC ([id number]) Melanoma 5 year survival: 69% (1) Melanoma [...] for micrometastatic involvement without extracapsular extension. Dr. Diallo Berger at [facility] surgical oncology group ordered metastatic staging with [...] for coordination of care (as documented) and rknt-ld-dfin counseling of patient and/or family. Dictated By: Rose Ohara MD DD/ [id number] Signed By: <Electronically signed by MD Rose Ohara> 09/30/21 214 [facility] Work Phone: 1(585) 230-209308-23-2021 Progress note Author Rose Ohara [facility] June 29, 2021 6:03pm Note Date/Time June 29, 2021 10 :48am [facility] [place] [address] Hem/Onc Follow Up Note - OP Signed Patient: Tosha Mcneal MR#: [id number] : 1950 Acct:[id number] Age/Sex: 70 / F Type: REG RCR Copies to: DO Mohan Haddda MD~ Subjective Date/Time of Service: Date of [...] with wide local excision 09/05/2020 at [facility]. Outside review at [facility] showed at least 2.1 cm Breslow depth melanoma with 2 cm negative margins. She was referred to Dr. Diallo Berger at [facility]. Right axillary sentinel lymph node biopsy [...] liver lesion. Her case was presented at [facility] cutaneous tumor board on 1prior to her metastatic staging. Discussion of referral to medical oncology fordiscussion of immunotherapy. The patient is now returning for medical oncology follow-up after review of all prior pathology and imaging. BRAF status is stillpending. She has healed well. She is a 10-year history of diabetes. She resides in [facility]. Today we reviewed immunotherapy counseling [...] 1. Initial wide local excision at [facility] 09/05/[address] Hernando Mccartney 2. Right sentinel lymph node biopsy 11/28/[address] at [facility] [address] Diallo Berger 3. Delay of immunotherapy due to [...] cit 4.5 mg-lutein 2.5 mg-zeaxan chew tablet ([facility]) 1 tab PO DAILY 04/11/19 [History Confirmed [...] Plan - TNM Staging Staging: Stage: pIIIC ([id number]) Melanoma 5 year survival: 69% (1) Melanoma [...] for micrometastatic involvement without extracapsular extension. Dr. Diallo Berger at [facility] surgical oncology group ordered metastatic staging with [...] for coordination of care (as documented) and urog-vg-jrff counseling of patient and/or family. Dictated By: Rose Ohara MD DD/ [id number] Signed By: <Electronically signed by MD Rose Ohara> 06/29/21 18[address] [facility] Work Phone: [phone]) 954-392105-17-2021 Progress note Author Rose Ohara [facility] March 23, 2021 9:29am Note Date/Time March 23, 2021 9:09a m [facility] at [place] [id number] Hem/Onc Follow Up Note - OP Signed Patient: Tosha Mcnela MR#: [id number] : 1950 Acct:[id number] Age/Sex: 70 / F Type: REG RCR Copies to: DO Diallo Haddad MD Richard M Wiecek, MD~ Subjective [...] with wide local excision 09/05/2020 at [facility]. Outside review at [facility] showed at least 2.1 cm Breslow depth melanoma with 2 cm negative margins. She was referred to Dr. Diallo Berger at [facility]. Right axillary sentinel lymph node biopsy [...] liver lesion. Her case was presented at [facility] cutaneous tumor board on 12/15/2020rior to her metastatic staging. Discussion of referral to medical oncology fordiscussion of immunotherapy. The patient is now returning for medical oncology follow-up after review of all prior pathology and imaging. BRAF status is stillpending. She has healed well. She is a 10-year history of diabetes. She resides in [facility]. Today we reviewed immunotherapy counseling [...] 1. Initial wide local excision at [facility] 09/05/[address] Hernando Mccartney 2. Right sentinel lymph node biopsy 11/28/2020 at [facility] by Dr. Diallo Berger 3. Delay of immunotherapy due to [...] Negative for environmental allergies and food allergies. COUNTS INCLUDE 234 BEDS AT [facility] - History Attestation statement: The following [...] % (Auto) 69.8, Lymph % (Auto) 16.9, [place] % (Auto) 9.7, Eos % (Auto) 2.4, Baso % (Auto) 1.2, Neut # (Auto) 5.1, Lymph # (Auto) 1.2, [place] # (Auto) 0.7, Eos # (Auto) 0.2, [...] Plan - TNM Staging Staging: Stage: pIIIC ([id number]) Melanoma 5 year survival: 69% (1) Melanoma [...] for micrometastatic involvement without extracapsular extension. Dr. Diallo Berger at [facility] surgical oncology group ordered metastatic staging with [...] for coordination of care (as documented) and ffpm-cr-menf counseling of patient and/or family. Dictated By: Rose Ohara MD DD/ 7 Signed By: <Electronically signed by MD Rose Ohara> 03/23/21 0929 [facility] Work Phone: [phone]) 253-857904-05-2021 Progress note Author Rose Ohara [facility] February 09, 2021 1:28pm Note Date/Time February 09, 2021 8:[address] [facility] at [address] [address] Hem/Onc Follow Up Note - OP Signed Patient: Tosha Mcneal MR#: [id number] : 1950 Acct:[id number] Age/Sex: 70 / F Type: REG RCR Copies to: DO Diallo Haddad MD Richard M Wiecek, MD~ Subjective [...] with wide local excision 09/05/2020 at [facility]. Outside review at [facility] showed at least 2.1 cm Breslow depth melanoma with 2 cm negative margins. She was referred to Dr. Diallo Berger at [facility]. Right axillary sentinel lymph node biopsy [...] liver lesion. Her case was presented at [facility] cutaneous tumor board on 12/15/2020rior to her metastatic staging. Discussion of referral to medical oncology fordiscussion of immunotherapy. The patient is now returning for medical oncology follow-up after review of all prior pathology and imaging. BRAF status is stillpending. She has healed well. She is a 10-year history of diabetes. She resides in [facility]. Today we reviewed immunotherapy counseling [...] 1. Initial wide local excision at [facility] 09/05/[address] Hernando Mccartney 2. Right sentinel lymph node biopsy 11/28/2020 at [facility] by Dr. Diallo Berger 3. Delay of immunotherapy due to [...] Plan - TNM Staging Staging: Stage: pIIIC ([id number]) Melanoma 5 year survival: 69% (1) Melanoma [...] for micrometastatic involvement without extracapsular extension. Dr. Diallo Berger at [facility] surgical oncology group ordered metastatic staging with [...] for coordination of care (as documented) and ryzb-rc-jbdm counseling of patient and/or family. Dictated By: Rose Ohara MD DD/ [id number] Signed By: <Electronically signed by MD Rose Ohara> 02/09/21 94[address] [facility] Work Phone: [phone]) [phone] Consult note Author Bang Nunez [facility] October 01, 2020 11:21am Note Date/Time October 01, 2020 11:10am [facility] [place] [address] Hem/Onc Consult Note - OP Signed Patient: Tosha Mcneal MR#: [id number] : 1950 Acct:[id number] Age/Sex: 69 / F Type: REG RCR [...] 10-year history of diabetes. She resides in [facility]. COUNTS INCLUDE 234 BEDS AT [facility] - Medical History Medical History: Medical [...] dissection. I will refer her to Dr. Diallo Berger at [facility] surgical oncology group for his opinion. I will see her back at a later date. - Time with Patient Coordination of Care & Counseling Time: Greater than 50% of time spent with patient was for coordination of care (as documented) and xpoy-yz-qdac counseling of patient and/or family. Dictated By: Bang Nunez MD DD/ [id number] Signed By: <Electronically signed by MD Bang Nunez> 10/01/20 1121 [facility] Work Phone: Evaluation + Plan note No data available for this section [facility] evaluation note* Diagnosis Onset Date Resolution Status Diabetes mellitus chronic Encounter for antineoplastic immunotherapy chronic Enlarged pituitary gland chr onic Melanoma chronic [facility] Work Phone: Evaluation note* Diagnosis Onset Date Resolution Status Enlarged pituitary gland acu te Diabetes mellitus chronic Encounter for antineoplastic immunotherapy chronic Melanoma chronic [facility] Work Phone: Evaluation note* Diagnosis Onset Date Resolution Status Enlarged pituitary gland acu te Diabetes mellitus chronic Encounter for antineoplastic immunotherapy chronic Melanoma chronic Enlarged pituitary gland acu te Malignant melanoma of right upper limb, including shoulder acute Diabetes mellitus chronic [facility] Work Phone: Evaluation note* Diagnosis Aftercare [...] [facility] Diagnosis Medicare annual wellness visit, subsequent- Primary Screening for depression [facility] Diagnosis Acute gout due to renal impairment involving toe of right foot- Primary 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 ([facility]) [facility] Diagnosis 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 ([facility]) [facility] Diagnosis Type 2 diabetes mellitus with stage 3a chronic kidney disease, with long-term current use of insulin ([facility])- Primary Gout, unspecified cause, unspecified chronicity, unspecified site Mixed hyperlipidemia Morbid obesity ([facility]) Morbid obesity 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 ([facility]) [facility] Diagnosis Encounter for screening mammogram for malignant neoplasm of breast- Primary [facility] Diagnosis 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 ([facility])- Primary Type 2 diabetes mellitus with stage 3a chronic kidney disease, with long-term current use of insulin ([facility]) Enlarged pituitary gland ([facility]) Morbid obesity ([facility]) Morbid obesity [facility] Diagnosis Lumbar paraspinal muscle spasm- Primary Other symptoms referable to back Lumbar back pain Lumbago Need for influenza vaccination Need for prophylactic vaccination and inoculation against influenza [facility] Diagnosis 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 ([facility]) [facility] Diagnosis Onset Date Resolution Status Admit Date Enlarged pituitary gland acute December 26, 2024 12:47pm Malignant melanoma of right upper limb, including shoulder acute F ebruary 2024 12:47pm Diabetes mellitus chronic Februar y 2024 12:47pm Enlarged pituitary gland acute December 26, 2024 12:59pm Diabetes mellitus chronic Februar 2024 12:59pm Encounter for antineoplastic immunotherapy chronic December 26 12:59pm Melanoma chronic December 26, 2024 12:59pm [facility] Work Phone: Evaluation note* Diagnosis Acute cholecystitis- Primary Hypotension due to hypovolemia Acute cholecystitis Hypotension due to hypovolemia Troponin level elevated Other abnormal blood chemistry Hypertension Unspecified essential hypertension Diabetes mellitus (HCC) Type II or unspecified type diabetes mellitus without mention of complication, not stated as uncontrolled Hyperlipidemia Other and unspecified hyperlipidemia BOO (acute kidney injury) Acute kidney failure, unspecified Sepsis associated hypotension ([facility]) Unspecified septicemia Lactic acidosis Acidosis Hypovolemia [facility] Diagnosis Acute cholecystitis- Primary Essential hypertension Unspecified essential hypertension Hypokalemia Hypopotassemia Type 2 diabetes mellitus with stage 3a chronic kidney disease, with long-term current use of insulin ([facility]) Morbid obesity ([facility]) Morbid obesity 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 ([facility]) [facility] Diagnosis Cholecystitis- Primary Cholecystitis, unspecified Cholecystitis Cholecystitis, unspecified Acute cholecystitis due to biliary calculus Acute cholecystitis due to biliary calculus [facility]* Diagnosis S/P laparoscopic cholecystectomy- Primary Other postprocedural status Morbid obesity ([facility]) Morbid obesity Hypersomnia Hypersomnia, unspecified Type 2 diabetes mellitus with stage 2 chronic kidney disease, with long-term current use of insulin ([facility]) Physical deconditioning Muscular wasting and disuse atrophy, not elsewhere classified Screening for depression [facility] Diagnosis Hypersomnia- Primary Hypersomnia, unspecified Excessive daytime sleepiness [facility]* Diagnosis S/P cholecystectomy- Primary Other acquired absence of organ Type 2 diabetes mellitus with stage 2 chronic kidney disease, with long-term current use of insulin ([facility]) Localized swelling of left foot Irregular heart beat Unspecified cardiac dysrhythmia Other post infection and related fatigue syndromes Abnormal CBC Other abnormal blood chemistry Morbid obesity ([facility]) Morbid obesity Excessive daytime sleepiness [facility]* Diagnosis Hypersomnia Hypersomnia, unspecified Excessive daytime sleepiness [facility]* Diagnosis History of cholecystectomy- Primary Other acquired absence of organ Diarrhea, unspecified type Morbid obesity ([facility]) Morbid obesity Lumbar spondylosis Lumbosacral spondylosis without myelopathy [facility] assessment information available [facility] Work Phone: Evaluation note* Diagnosis RONEN (obstructive sleep apnea)- Primary Obstructive sleep apnea (adult) (pediatric) Class 3 severe obesity due to excess calories with serious comorbidity and body mass index (BMI) of 40.0 to 44.9 in adult ([facility]) Essential hypertension, benign Nocturia [facility] Diagnosis Degeneration of intervertebral disc of lumbar region with discogenic back pain- Primary documented [facility] [...] on filedocumented in this encounter [facility]* Attachments The following attachments cannot be sent through Care Everywhere. * Low Back Pain ED (Senegalese) documented in [facility] encounter[facility] System[facility]ructionsNot on file documented in this encounterProMedica Health SystemInstructionsNot on file documented in this encounterPro[facility]ica Health SystemInstructionsNot on file documented in this encounterPro[facility] Health SystemInstructionsNot on file documented in this encounterProMedica Health SystemInstructionsNot on file documented in this encounterProMedica Health SystemInstructions* Attachments The following attachments cannot be sent through Care Everywhere. * High-fiber diet (Senegalese) documented in this encounterPro[facility]ica Health SystemInstructionsNot on file documented in this encounterProMedica Health SystemProgress note Author Rose Ohara [facility] July 01, 2022 8:35pm Note Date/Time July 01, 2022 10 :39am [facility] at [address] [address] Hem/Onc Follow Up Note - OP Signed Patient: Tosha Mcneal MR#: [id number] : 1950 Acct:[id number] Age/Sex: 71 / F Type: REG RCR [...] related toxicities. Now following with dermatology at [facility] with no recurrence on skin exam. Surveillance ultrasound right axilla without recurrence. She will have routing f/u with [place] in [address] CAP and [...] with wide local excision 09/05/2020 at [facility]. Outside review at [facility] showed at least 2.1 cm Breslow depth melanoma with 2 cm negative margins. She was referred to Dr. Diallo Berger at [facility]. Right axillary sentinel lymph node biopsy [...] liver lesion. Her case was presented at [facility] cutaneous tumor board on 1prior to her metastatic staging. Discussion of referral to medical oncology fordiscussion of immunotherapy. The patient is now returning for medical oncology follow-up after review of all prior pathology and imaging. BRAF status is stillpending. She has healed well. She is a 10-year history of diabetes. She resides in [facility]. Today we reviewed immunotherapy counseling [...] 1. Initial wide local excision at [facility] 09/05/[address] Hernando Mccartney 2. Right sentinel lymph node biopsy 11/28/2020 at [facility] by Dr. Diallo Berger 3. Delay of immunotherapy due to [...] cit 4.5 mg-lutein 2.5 mg-zeaxan chew tablet ([facility]) 1 tab PO DAILY eye [...] % (Auto) 66.8, Lymph % (Auto) 18.8, [place]burn % (Auto) 9.5, Eos % (Auto) 3.7, Baso % (Auto) 1.2, Neut # (Auto) 5.6, Lymph # (Auto) 1.6, [place] # (Auto) 0.8, Eos #(Auto) 0.3, Baso [...] No acute intra-abdominal pathology. Impression dictated by: Litzy Boggs M.D.06/29/2022 2:47 PM Assessment and Plan - TNM Staging Staging: Stage: pIIIC ([id number]) Melanoma 5 year survival: 69% (1) Melanoma [...] for micrometastatic involvement without extracapsular extension. Dr. Diallo Berger at [facility] surgical oncology group ordered metastatic staging with [...] for coordination of care (as documented) and wvxe-ne-lmei counseling of patient and/or family. Dictated By: Rose Ohara MD DD/ [id number] Signed By: <Electronically signed by MD Rose Ohara> 07/01/222034 [facility] Work Phone: Progress note Author Rose Ohara [facility] September 23, 2022 10:21am Note Date/Time September 23, 2022 8:36am [place] [address] Hem/Onc Follow Up Note - OP Signed Patient: Tosha Mcneal MR#: [id number] : 1950 Acct:[id number] Age/Sex: 71 / F Type: REG RCR [...] related toxicities. Now following with dermatology at [facility] with no recurrence on skin exam. Surveillance ultrasound right axilla without recurrence. She will have routing f/u with [place] in [address] CAP and [...] with wide local excision 09/05/2020 at [facility]. Outside review at [facility] showed at least 2.1 cm Breslow depth melanoma with 2 cm negative margins. She was referred to Dr. Diallo Berger at [facility]. Right axillary sentinel lymph node biopsy [...] liver lesion. Her case was presented at [facility] cutaneous tumor board on 1prior to her metastatic staging. Discussion of referral to medical oncology fordiscussion of immunotherapy. The patient is now returning for medical oncology follow-up after review of all prior pathology and imaging. BRAF status is stillpending. She has healed well. She is a 10-year history of diabetes. She resides in [facility]. Today we reviewed immunotherapy counseling [...] 1. Initial wide local excision at [facility] 09/05/[address] Hernando Mccartney 2. Right sentinel lymph node biopsy 11/28/2020 at [facility] [address] Dr. Diallo Berger 3. Delay of immunotherapy due to [...] cit 4.5 mg-lutein 2.5 mg-zeaxan chew tablet ([facility]) 1 tab PO DAILY eye [...] % (Auto) 65.7, Lymph % (Auto) 21.6, [place] % (Auto) 9.7, Eos % (Auto) 2.0, Baso % (Auto) 1.0, Neut # (Auto) 4.5, Lymph # (Auto) 1.5, [place] # (Auto) 0.7, Eos# (Auto) 0.1, Baso [...] imaging as symptoms warrant. Impression dictated by: Litzy Boggs M.D.09/21/2022 10:15 AM Assessment and Plan - TNM Staging Staging: Stage: pIIIC ([id number]) Melanoma 5 year survival: 69% (1) Melanoma [...] for micrometastatic involvement without extracapsular extension. Dr. Diallo Berger at [facility] surgical oncology group ordered metastatic staging with [...] for coordination of care (as documented) and fxlr-tu-gayi counseling of patient and/or family. Dictated By: Rose Ohara MD DD/ [id number] Signed By: <Electronically signed by MD Rose Ohara> 09/23/22 1028 [facility] Work Phone: Progress note Author Rose Ohara [facility] April 13, 2023 5:59pm Note Date/Time April 13, 2023 9:30a m [facility] [place] [address] Hem/Onc Follow Up Note - OP Signed Patient: Tosha Mcneal MR#: [id number] : 1950 Acct:[id number] Age/Sex: 72 / F Type: REG RCR [...] She is leaving for a cruise to [place] this month. Continue 4 month followup with [...] related toxicities. Now [facility] [place] with no recurrence on skin exam. Surveillance [...] with wide local excision 09/05/2020 at [facility]. Outside review at [facility] showed at least 2.1 cm Breslow depth melanoma with 2 cm negative margins. She was referred to Dr. Diallo Berger at [facility]. Right axillary sentinel lymph node biopsy [...] liver lesion. Her case was presented at [facility] cutaneous tumor board on 1prior to her metastatic staging. Discussion of referral to medical oncology fordiscussion of immunotherapy. The patient is now returning for medical oncology follow-up after review of all prior pathology and imaging. BRAF status is stillpending. She has healed well. She is a 10-year history of diabetes. She resides in [facility]. Today we reviewed immunotherapy counseling [...] 1. Initial wide local excision at [facility] 09/05/[address] Hernando Mccartney 2. Right sentinel lymph node biopsy 11/28/2020 at [facility] by Dr. Diallo Berger 3. Delay of immunotherapy due to [...] % (Auto) 62.3, Lymph % (Auto) 26.0, Washburn % (Auto) 8.6, Eos % (Auto) 2.2, Baso % (Auto) 0.9, Nucleat RBC Rel Count 0.1, Neut # (Auto) 4.3, Lymph # (Auto) 1.8, Washburn # (Auto) 0.6, Eos # (Auto) 0.2, [...] Plan - TNM Staging Staging: Stage: pIIIC ([id number]) Melanoma 5 year survival: 69% (1) Melanoma [...] for micrometastatic involvement without extracapsular extension. Dr. Diallo Berger at [facility] surgical oncology group ordered metastatic staging with [...] for coordination of care (as documented) and [id number] counseling of patient and/or family. Dictated By: Rose Ohara MD DD/ 0929 Signed By: <Electronically signed by MD Rose Ohara> 04/13/23 8721 [facility] Work Phone: Progress note No data available for this section [facility] reason for referral (narrative)No reason for referral information availableGood Samaritan Hospital [facility]tr Work Phone: Reason for visit Narrative* Auth/Cert Specialty Diagnoses / Procedures Referred By Contac t Referred To Contact Diagnoses Acute cholecystitis Carlos Garcia MD [address] [facility] [address] [place] [address] Phone: tel: fax: [facility] [address] [place] [address] Referral ID Status Reason Start Date Expiration Date Visits Re quested Visits Authorized [id number] [facility] for [facility] N[facility]* Auth/Cert Specialty Diagnoses / Procedures Referred By Contac t Referred To Contact Diagnoses Cholecystitis Procedures RI LAPAROSCOPY SURG CHOLECYSTECTOMY CHOLECYSTECTOMY LAPAROSCOPIC Rajni Cline MD [address] [facility] [address] [place] [address] Phone: tel: fax: [facility] [address] [place] [address] Referral ID Status Reason Start Date Expiration Date Visits Re quested Visits Authorized [id number] 1 5 [facility] [employer] [employer] [facility] Narrative* Misc (Routine) - Closed Specialty Diagnoses / Procedures Referred By Contac t Referred To Contact Diagnoses Hypersomnia Excessive daytime sleepiness Procedures PSG Diagnostic Wild Centeno, DO [address] [facility] [facility], [facility] [place] [address] Phone: tel: fax: Referral ID Status Reason Start Date Expiration Date Visits Re quested Visits Authorized [id number] Closed 04/29/2025 04/29/2026 1 1 [facility] Summary Purpose Family History Relationship Condition Age at Onset Recorded Date/T gianfranco Not Specified Cerebrovascular accident (CVA) Unknown father Leukemia Unknown Relationship Condition Age at Onset Recorded Date/T gianfranco mother Cerebrovascular accident (CVA) Unknown father Leukemia Unknown Advance Directives Advance Directive Response Recorded Date/ Time Advance Directives No April 11 7:55am Advance Directive Response Recorded Date/ Time Advance Directives No April 11 6:55am Date Activated Date Inactivated Comments 03/03/2025 11:34 AM Date Activated Date Inactivated Comments 10/03/2023 12:10 PM 10/04/2023 4:13 PM Healthcare Agents on File Name Relationship Healthcare Agent Relationshi p Communication Dayo Mcneal Spouse Primary Decision Maker Ty Colleen Child Secondary Decision Maker Date Activated Date Inactivated Comments 04/10/2025 10:05 PM Date Activated Date Inactivated Comments 03/03/2025 11:34 AM 03/10/2025 3:10 PM Date Activated Date Inactivated Comments 10/03/2023 12:10 PM 10/04/2023 4:13 PM Healthcare Agents on File Name Relationship Healthcare Agent Jashi p Communication Dayo Mcneal Spouse Primary Decision Maker Ty Colleen Child Secondary Decision Maker Procedure Findings Note PROCEDURE DETAILS Postoperat nitesh Diagnosis: right arm melanoma Surgeon: Diallo Berger Resident/Fellow/Other Infrastructure Tech: Ramiro Bhat Procedure: 1. RIGHT AXILLARY SENTINEL [...] 2024 12:59pm Melanoma December 26, 2024 12:59pm Chief Complaint Admit Date f/u CT, labs r/s from 12/13December 26, 2024 12:47pm Melanoma rt upper arm. December 26 12:59pm Unknown March 03, 2025 6:3 3am Chief Complaint Admit Date N13.30 Z87.442 June 11, 2025 9:1 5am Chief Complaint Admit Date N13.30 Z87.442 June 11, 2025 9:1 5am Right [place] Ureteral Nephrosis July 16, 2025 10:11am Additional Source Comments INFORMATION SOURCE (unrecogn ized section and content) DATE CREATED AUTHOR 10/24/2020 [facility] DATE CREATED AUTHOR AUTHOR'S ORGANIZ ATION 12/14/2020 [facility] DATE CREATED AUTHOR AUTHOR'S ORGANIZ ATION 10/07/2021 [facility] DATE CREATED AUTHOR AUTHOR'S ORGANIZ ATION 04/09/2022 [facility] DATE CREATED AUTHOR AUTHOR'S ORGANIZ ATION 03/07/2023 [facility] DATE CREATED AUTHOR AUTHOR'S ORGANIZ ATION 10/12/2023 [facility] DATE CREATED AUTHOR AUTHOR'S ORGANIZ ATION 11/10/2023 [facility] DATE CREATED AUTHOR AUTHOR'S ORGANIZ ATION 01/05/2024 [facility] DATE CREATED AUTHOR AUTHOR'S ORGANIZ ATION 07/18/2024 [facility] DATE CREATED AUTHOR AUTHOR'S ORGANIZ ATION 04/26/2025 [facility] DATE CREATED AUTHOR AUTHOR'S ORGANIZ ATION 05/10/2025 [facility] DATE CREATED AUTHOR AUTHOR'S ORGANIZ ATION 06/20/2025 [facility] DATE CREATED AUTHOR AUTHOR'S ORGANIZ ATION 07/02/2025 [facility] DATE CREATED AUTHOR AUTHOR'S ORGANIZ ATION 07/18/2025 [facility] DATE CREATED AUTHOR AUTHOR'S ORGANIZ ATION 07/19/2025 [facility] Care Teams (unrecognized sec tion [...] Wild Centeno DO Primary Care Provider Active aBng Nunez MD Attending Provider Active Mohan Mccartney [...] December 15, 2023 End: December 15, 2023 Rsoe Ohara MD Attending Provider Active Start: December 15, 2023 End: December 15, 2023 In Process Inspector Relationship Specialty Start Date End Date Unallocated, Noms Provider [address] [place] [address] PCP - General Family Medicine 12/06/23 In Process Inspector Relationship Specialty Start Date End Date Unallocated, Noms Provider [address] [place] [address] PCP - General Family Medicine 12/06/23 In Process Inspector Relationship Specialty Start Date End Date Unallocated, Noms Provider [address] [place] [address] PCP - General Family Medicine 12/06/23 In Process Inspector Relationship Specialty Start Date End Date Unallocated, Noms Provider [address] [place] [address] PCP - General Family Medicine 12/06/23 In Process Inspector Relationship Specialty Start Date End Date Unallocated, Noms Provider [address] [place] [address] PCP - General Family Medicine 12/06/23 In Process Inspector Relationship Specialty Start Date End Date Unallocated, Noms Provider [address] [place] [address] PCP - General Family Medicine 12/06/23 In Process Inspector Relationship Specialty Start Date End Date Unallocated, Noms MD Tiana [address] [place] [address] PCP - General Family Medicine 12/06/23 In Process Inspector Relationship Specialty Start Date End Date Unallocated, Noms MD Tiana [address] [place] [address] PCP - General Family Medicine 12/06/23 In Process Inspector Relationship Specialty Start Date End Date Wild Centeno DO [address] [place] [address] PCP - General Family Medicine 11/30/17 In Process Inspector Relationship Specialty Start Date End Date Wild Centeno DO [address], [place] [address] PCP - General Family Medicine 11/30/17 In Process Inspector Relationship Specialty Start Date End Date Wild Centeno DO [address] [place] [address] PCP - General Family Medicine 11/30/17 In Process Inspector Relationship Specialty Start Date End Date HelderdesiWild recinos DO [address] [place] [address] PCP - General Family Medicine 11/30/17 In Process Inspector Relationship Specialty Start Date End Date Wild Centeno DO [address] [place] [address] PCP - General Family Medicine 11/30/17 In Process Inspector Relationship Specialty Start Date End Date HelderdesiWild recinos DO [address] [place] [address] PCP - General Family Medicine 11/30/17 In Process Inspector Relationship Specialty Start Date End Date Wild Centeno DO [address] [place] [address] PCP - General Family Medicine 11/30/17 In Process Inspector Relationship Specialty Start Date End Date HelderdesiWild recinos DO [address] [place] [address] PCP - General Family Medicine 11/30/17 In Process Inspector Relationship Specialty Start Date End Date HelderdesiWild recinos DO [address] [place] [address] PCP - General Family Medicine 11/30/17 In Process Inspector Relationship Specialty Start Date End Date Wild Centeno [address], [place] [address] PCP - General Family Medicine 11/30/17 In Process Inspector Relationship Specialty Start Date End Date HeldercaritoWild [address], [place] [address] PCP - General Family Medicine 11/30/17 Team Status: Inactive Member Role Status Dates [...] Attending Provider Active Start: December 26, 2024 Team Status: Inactive Member Role Status Dates Jessica Noble DO Attending Provider Active Start: March 03, 2025 End: March 03, 2025 In Process Inspector Relationship Specialty Start Date End Date HeldercaritoWild [address] [place] [address] [place] [address] PCP - General Family Medicine 10/04/23 In Process Inspector Relationship Specialty Start Date End Date HeldercaritoWild [address], [place] [address] PCP - General Family Medicine 11/30/17 In Process Inspector Relationship Specialty Start Date End Date HeldercaritoWildDO [address], [place] [address] PCP - General Family Medicine 11/30/17 In Process Inspector Relationship Specialty Start Date End Date Wild Centeno DO [address] [place] [address] PCP - General Family Medicine 11/30/17 In Process Inspector Relationship Specialty Start Date End Date HelderdesiWild recinos DO [address] [place] [address] PCP - General Family Medicine 10/04/23 In Process Inspector Relationship Specialty Start Date End Date HelderdesiWild recinos DO [address] [place] [address] PCP - General Family Medicine 11/30/17 In Process Inspector Relationship Specialty Start Date End Date HelderdesiWild recinos DO [address] [place] [address] PCP - General Family Medicine 11/30/17 In Process Inspector Relationship Specialty Start Date End Date Wild Centeno DO [address] [place] [address] PCP - General Family Medicine 11/30/17 In Process Inspector Relationship Specialty Start Date End Date HelderdesiWild recinos DO [address] [place] [address] PCP - General Family Medicine 11/30/17 In Process Inspector Relationship Specialty Start Date End Date HelderdesiWild recinos DO [address] [place] [address] PCP - General Family Medicine 11/30/17 Team Status: Inactive Member Role Status Dates Shavon Mustafa MD Attending Provider Active Start : June 11, 2025 End: June 11, 2025 Wild Centeno DO Primary Care Provider Active Start: June 11, 2025 End: June 11, 2025 In Process Inspector Relationship Specialty Start Date End Date Wild Centeno JaileneDO [address], [place] [address] PCP - General Family Medicine 11/30/17 Team Status: Inactive Member Role Status Dates Wild Centeno DO Primary Care Provider Active Start: July 16, 2025 End: July 16, 2025 Shavon Mustafa MD Attending Provider Active Start : July 16, 2025 End: July 16, 2025 In Process Inspector Relationship Specialty Start Date End Date Wild Centeno DO [address], [place] [address] PCP - General Family Medicine 11/30/17 Goals [...] this encounterNot on filedocumented as of this encounterGoals may be documented in an alternate sectionNot on filedocumented as of this encounterNot on filedocumented as of this encounterNot on filedocumented as of this encounterGoals may be documented in an alternate sectionNot [...] this encounterNot on filedocumented as of this encounterGoals may be documented in an alternate sectionNot on filedocumented as of this encounterNot on filedocumented as of this encounter No data available for this sectionNot on filedocumented as of this encounterGoals may be documented in an alternate sectionNot on filedocumented as of this encounterNot on filedocumented as of this encounterNot on filedocumented as of this encounter Reason for Visit (unrecogniz ed section and content) Specialty Diagnoses / Procedures Referred By Pete jordan Referred To Contact Physical Therapy Diagnoses S/P total knee replacement using cement, left Procedures RI MANUAL THERAPY TQS 1/> REGIONS EACH 15 MINUTES PHYS/OCC THERAPY SS RI THERAPEUTIC PX 1/> AREAS EACH 15 MIN EXERCISES RI THER PX 1/> AREAS EACH 15 MIN NEUROMUSC REEDUCA Aly Higgins MD [address] [place] [address] Db Yu, PT [address] [facility] [address] [place] [address] Referral ID Status Reason Start Date Expiration Date Visits Re quested Visits Authorized [id number] Closed 11/07/2023 10/19/2024 1 10 Referral ID Status Reason Start Date Expiration Date V isits Requested Visits Authorized [id number] Authorized 12/19/2023 10/02/2025 28 28 Reason Comments gout in big toe Reason Comments Med Refill Reason Comments Diabetes Reason Comments sciatica right side Reason Onset Date Comments Med Refill 08/20/2024 Reason Onset Date Comments Transition Of Care 03/11/2025 Reason Comments TCM Diabetes Hyperlipidemia Hypertension Reason Onset Date Comments Med Refill 03/27/2025 Reason Comments TCM- G[facility]BLADDER SURGERY[facility] Reason Onset Date Comments Sleep Lab 04/25/2025 HST Reason Onset Date Comments Sleep Lab 04/30/2025 PSG Reason Onset Date Comments Transition Of Care 04/15/2025 Reason Comments Follow-up From last visit. Fee ls like she has gout in the left foot. Reason Onset Date Comments Results 05/03/2025 Reason Comments Follow-up From last visit with Lucy.Still is not feeling well since gallbladder surgery 04/10 Reason Comments Med Change Request Reason Onset Date Comments Sleep Lab 06/18/2025 Pap Order Reason Comments 3 month f/u Ordered Prescriptions (unrec ognized section and content) Prescription Sig Dispense Quantity Refills Last Filled Start Date End Date oxyCODONE-acetamino phen (PERCOCET) 5-325 MG per tabletIndications:A cute cholecystitis Take 1 tablet by mouth every 6 hours as needed for Pain for up to 3 days. Intended supply: 3 days. Take lowest dose possible to manage pain Max Daily Amount: 4 tablets 12 tablet 03/10/2025 5 amoxicillin-clavula kaveh (AUGMENTIN) 875-125 MG per tablet Take 1 tablet by mouth 2 times daily for 5 days 10 tablet 03/10/2025 5 pantoprazole (PROTONIX) 40 MG tablet Take 1 tablet by mouth 2 times daily (before meals) 30 tablet 3 03/10/2025 Prescription Sig Dispense Quantity Refills Last Filled Start Date End Date oxyCODONE (ROXICODONE) 5 MG immediate release tabletIndications:A cute cholecystitis due to biliary calculus Take 1 tablet by mouth every 4 hours as needed for Pain for up to 5 days. Max Daily Amount: 30 mg 21 tablet 04/13/2025 5 methocarbamol (ROBAXIN) 500 MG tablet Take 1 tablet by mouth 3 times daily for 10 days 30 tablet 04/13/2025 5 gabapentin (NEURONTIN) 300 MG capsule Take 1 capsule by mouth 3 times daily for 10 days. 30 capsule 04/13/2025 5 Scheduled Active and Recently Administ ered Medications (unrecognized section and content) Medication Order 03/08/2025 03/09/2025 03/10/2025 aspirin chewable tablet 81 mg 81 mg, Oral, DAILY, First dose on Tue03/09/25 at 0900, Until Discontinued 819 (Given - Provider: Carmen Ramirez RN) 918 (Given - Provider: Carmen Ramirez RN) cefTRIAXone (ROCEPHIN) 1,000 mg in sterile water 10 mL IV syringe 1,000 mg, IntraVENous, EVERY 24 HOURS, First dose on Tue03/06/25 at 1800, Administer as slow IV Push over 5 mins Reconstitute 1 g vials with 9.6 mL of designated diluent to produce a 100 mg/mL solution. 181 (Given - Provider: Mindy Hinton RN) 1704 (Given - Provider: Carmen Ramirez, PERLA) 1800 (Due) enoxaparin Sodium (LOVENOX) injection 30 mg 30 mg, SubCUTAneous, 2 TIMES DAILY, First dose on Tue03/06/25 at 1430, Until Discontinued, Indication of Use: Prophylaxis-DVT/PE, Administer by deep subCUTAneous injection with pt lying down. Alternate injection sites on abdominal wall. Do not rub site after injection. Check with provider prior to any invasive procedure. 925 (Given - Provider: Tanner Yates RN)2050 (Given - Provider: Leslie Tapia, RN) 819 (Given - Provider: Carmen Ramirez, PERLA)2099 (Given - Provider: Chacha Mcarthur RN) 920 (Given - Provider: Carmen Ramirez RN)2099 (Due) furosemide (LASIX) tablet 20 mg 20 mg, Oral, DAILY, First dose on Tue03/09/25 at 0900, Until Discontinued 819 (Given - Provider: Carmen Ramirez RN) 918 (Given - Provider: Carmen Ramirez RN) insulin glargine (LANTUS) injection vial 15 Units (CANCELED) 15 Units, SubCUTAneous, DAILY, First dose (after last modification) on Tue03/08/25 at 0945, Until Discontinued 0926 (Given - Provider: Tanner Yates, PERLA) insulin glargine (LANTUS) injection vial 20 Units 20 Units, SubCUTAneous, DAILY, First dose (after last modification) on Tue03/09/25 at 0900, Until Discontinued 0837 (Given - Provider: Carmen Ramirez RN) 0921 (Given - Provider: Carmen Ramirez RN) insulin lispro (HUMALOG,ADMELOG) injection vial 0-16 Units 0-16 Units, SubCUTAneous, 4 TIMES DAILY BEFORE MEALS & NIGHTLY, First dose (after last modification) on Tue03/08/25 at 1730, Until Discontinued, High Dose Corrective Algorithm Glucose: Dose: 70-179 No Insulin 180-249 4 Units 250-299 8 Units 300-349 12 Units Over 349 16 Units and notify physician Administer as soon as possible within 60 minutes of last blood glucose check 1714 (Given - Provider: Ny Shelby RN) 0837 (Given - Provider: Carmen Ramirez RN)1207 (Given - Provider: Carmen Ramirez RN)1703 (Given - Provider: Carmen Ramirez RN)2100 (Given - Provider: Chacha Mcarthur RN) 0920 (Given - Provider: Carmen Ramirez RN)1202 (Given - Provider: Carmen Ramirez RN)1700 (Due)2100 (Due) insulin lispro (HUMALOG,ADMELOG) injection vial 0-8 Units (CANCELED) 0-8 Units, SubCUTAneous, 4 TIMES DAILY BEFORE MEALS & NIGHTLY, First dose on Tue03/03/25 at 1700, Until Discontinued, Medium Dose Corrective Algorithm Glucose: Dose: 70-179 No Insulin 180-249 2 Units 250-299 4 Units 300-349 6 Units Over 349 8 Units and notify physician Administer as soon as possible within 60 minutes of last blood glucose check 0619 (Given - Provider: Radha Dodd RN)1113 (Given - Provider: Tanner Yates RN) insulin lispro (HUMALOG,ADMELOG) injection vial 5 Units 5 Units, SubCUTAneous, 3 TIMES DAILY WITH MEALS, First dose on 03/09/25 at 0830, Until Discontinued, On hold since Tue03/10/2025 at 0810 until manually unheld 0836 (Given - Provider: Carmen Ramirez RN)1208 (Given - Provider: Carmen Ramirez RN)1704 (Given - Provider: Carmen Ramirez RN) 0810 (Held by provider - Provider: Piter Weems MD - Reason: Other)0838 (Not Given - Provider: Praveena Nelson RN - Reason: Other - Comment: order d.c)1200 (Automatically Held - Provider: Piter Weems MD)1700 (Automatically Held - Provider: Piter Weems MD) magnesium oxide (MAG-OX) tablet 400 mg (CANCELED) 400 mg, Oral, DAILY, First dose on 03/09/25 at 0900, Until Discontinued 0820 (Given - Provider: Carmen Ramirez RN) magnesium sulfate 1000 mg in dextrose 5% 100 mL IVPB (COMPLETED) 1,000 mg, IntraVENous, at 100 mL/hr, Administer over 1 Hours, ONCE, On 03/10/25 at 0615, For 1 dose, Recommended infusion rate not to exceed 1,000 mg (milligrams) per hour. 0611 (New Bag - Provider: Chacha Mcarthur RN)0711 (Stopped - Provider: Carmen Ramirez RN)0719 (Stopped - Provider: Praveena Nelson, PERLA) magnesium sulfate 2000 mg in 50 mL IVPB premix 2,000 mg, IntraVENous, at 25 mL/hr, Administer over 2 Hours, ONCE, On 03/10/25 at 0845, For 1 dose 0845 (Due) midodrine (PROAMATINE) tablet 5 mg 5 mg, Oral, 3 TIMES DAILY WITH MEALS, First dose on Tue03/04/25 at 1215, Until Discontinued, Do not give after 1800 or within 4 hrs of bedtime. Withhold if systlic over 110 0909 (Not Given - Provider: Tanner Yates RN - Reason: Order parameters not met)1106 (Not Given - Provider: Tanner Yates RN - Reason: Order parameters not met)1652 (Not Given - Provider: Ny Shelby RN - Reason: Contraindicated - Comment: SBP 150) 0824 (Not Given - Provider: Carmen Ramirez RN - Reason: Order parameters not met)1154 (Not Given - Provider: Carmen Ramirez RN - Reason: Order parameters not met)165 (Not Given - Provider: Carmen Ramirez RN - Reason: Order parameters not met) 0803 (Not Given - Provider: Carmen Ramirez RN - Reason: Order parameters not met)1157 (Not Given - Provider: Carmen Ramirez RN - Reason: Order parameters not met)1700 (Due) pantoprazole (PROTONIX) tablet 40 mg 40 mg, Oral, 2 TIMES DAILY BEFORE MEALS, First dose on Tue03/07/25 at 1600, Until Discontinued, Do not crush or break. 0614 (Given - Provider: Radha Dodd RN)1714 (Given - Provider: Ny Shelby RN) 0617 (Given - Provider: Leslie Tapia RN)1704 (Given - Provider: Carmen Ramirez RN) 0929 (Given - Provider: Carmen Ramirez RN)1600 (Due) potassium chloride (KLOR-CON M) extended release tablet 40 mEq (COMPLETED) 40 mEq, Oral, ONCE, 1 dose, On Tue03/10/25 at 0845, Do not crush, chew, or suck on tablet. Tablet may also be broken in half and each half swallowed separately. 0922 (Given - Provider: Carmen Ramirez RN) potassium chloride (KLOR-CON M) extended release tablet 40 mEq (COMPLETED) 40 mEq, Oral, ONCE, 1 dose, On Tue03/10/25 at 1200, Do not crush, chew, or suck on tablet. Tablet may also be broken in half and each half swallowed separately. 1202 (Given - Provider: Carmen Ramirez RN) rosuvastatin (CRESTOR) tablet 10 mg 10 mg, Oral, NIGHTLY, First dose on Tue03/08/25 at 2100, Until Discontinued 2050 (Given - Provider: Leslie Tapia RN) 2058 (Given - Provider: Chacha Mcarthur RN) 2099 (Due) sodium chloride flush 0.9 % injection 5-40 mL 5-40 mL, IntraVENous, EVERY 12 HOURS SCHEDULED (2 times per day), First dose on 03/03/25 at 2100, Until Discontinued, For Line Patency: Peripheral IV = 5 mL; Midline or Central Line = 10 mL/lumen. If following IV push medication, administer flush at same rate as the IV push. Flush volume is determined by type of infusion therapy being given. For non-viscous solutions use: Peripheral IV = 5 mL Midline or Central Line = 10 mL/lumen For viscous solutions (i.e. blood components, parenteral nutrition, contrast media, or after obtaining blood sample) use: Peripheral IV = 10 mL Midline or Central Line = 20 mL/lumen 0951 (Given - Provider: Tanner Yates, RN)2050 (Given - Provider: Leslie Tapia, RN) 08 (Given - Provider: Carmen Ramirez, PERLA)2100 (Given - Provider: Chacha Mcarthur RN) 0928 (Given - Provider: Carmen Ramirez RN)2100 (Due) PRN Medication Order 03/08/2025 03/09/2025 03/10/2025 0.9 % sodium chloride infusion IntraVENous, at 5-250 mL/hr, PRN, if patient receiving piggyback infusions and maintenance fluids are not ordered, Starting on 03/03/25 at 1148, For piggyback infusion, administer at same rate as piggyback for a total of 25 mL. Enter 25 mL into dose field and piggyback rate into rate field of order. If piggyback is infusing at a rate less than 100 mL/hr, enter 25 mL into dose field and 100 mL/hr into rate field of order. acetaminophen (TYLENOL) suppository 650 mg(Linked Group 1) 650 mg, Rectal, EVERY 6 HOURS PRN, Starting on 03/03/25 at 1148, Until Discontinued, Pain Mild (1-3), allowed for higher pain score per patient request, Fever, For temp greater than 100.4 F (38 C), Administer if oral route cannot be used. acetaminophen (TYLENOL) tablet 650 mg(Linked Group 1) 650 mg, Oral, EVERY 6 HOURS PRN, Starting on 03/03/25 at 1148, Until Discontinued, Pain Mild (1-3), allowed for higher pain score per patient request, Fever, For temp greater than 100.4 F (38 C), Maximum dose of acetaminophen is 4000 mg from all sources in 24 hours. dextrose 10 % infusion IntraVENous, at 100 mL/hr, CONTINUOUS PRN, if blood glucose remains LESS THAN 70 mg/dL after 2 dextrose 10% intravenous boluses or administration of glucagon, Starting on 03/03/25 at 1456, If blood glucose fails to stabilize after 2 dextrose 10% intravenous boluses or glucagon administration, start dextrose 10% infusion at 100 mL/hour and repeat blood glucose at 30 and 60 minutes. If blood glucose is GREATER THAN 70 mg/dL after 60 minutes, discontinue dextrose 10% infusion. dextrose bolus 10% 125 mL(Linked Group 2) 125 mL, IntraVENous, at 937.5 mL/hr, Administer over 8 Minutes, PRN, Other, Blood glucose 40 - 69 mg/dL and patient NOT ALERT or NPO, Starting on 03/03/25 at 1456, Repeat blood glucose in 15 minutes. If blood glucose remains LESS THAN 70 mg/dL, repeat treatment and recheck blood glucose in 15 minutes x 2. If using glycemic management system, dose as instructed per system. If blood glucose remains LESS THAN 70 mg/dL after 2 intravenous boluses start dextrose 10% at 100 mL/hour and notify provider. dextrose bolus 10% 250 mL(Linked Group 2) 250 mL, IntraVENous, at 937.5 mL/hr, Administer over 16 Minutes, PRN, Other, Blood glucose LESS THAN 40 mg/dL and patient NOT ALERT or NPO, Starting on 03/03/25 at 1456, Repeat blood glucose in 15 minutes. If blood glucose remains LESS THAN 70 mg/dL, repeat treatment and recheck blood glucose in 15 minutes x 2. If using glycemic management system, dose as instructed per system. If blood glucose remains LESS THAN 70 mg/dL after 2 intravenous boluses start dextrose 10% at 100 mL/hour and notify provider. glucagon injection 1 mg 1 mg, SubCUTAneous, PRN, Starting on 03/03/25 at 1456, Until Discontinued, Low blood sugar, Blood glucose LESS THAN 70 mg/dL and patient NOT ALERT or NPO and does not have IV access., After administration, attempt intravenous access and start dextrose 10% at 100 mL/hr. Repeat blood glucose in 15 minutes x 2 and notify provider. Reconstitute powder for injection by adding 1 mL of concierge-supplied sterile diluent or sterile water for injection to a vial containing 1 mg of the drug, to provide solutions containing 1 mg/mL. Shake vial gently to dissolve. glucose chewable tablet 16 g 16 g (4 tablet), Oral, PRN, Starting on 03/03/25 at 1456, Until Discontinued, Low blood sugar, If blood glucose is LESS THAN 70 mg/dL and patient is alert and tolerating oral. Give 4 tablets (16g) Repeat blood glucose in 15 minutes. If blood glucose is LESS THAN 70 mg/dL, repeat treatment and recheck blood glucose in 15 minutes x 2. If blood glucose remains LESS THAN 70 mg/dL, notify provider. HYDROmorphone (DILAUDID) injection 0.5 mg 0.5 mg, IntraVENous, EVERY 6 HOURS PRN, Starting on Tue03/06/25 at 1403, Until Discontinued, Pain Severe (7-10), If oral and IV narcotics ordered, use oral first and only use IV if oral is ineffective or cannot take oral. Do Not give oral and IV within 1 hour of each other unless specifically ordered. 0415 (Given - Provid er: Chacha Mcarthur RN) melatonin tablet 3 mg 3 mg, Oral, NIGHTLY PRN, Starting on Tue03/08/25 at 2102, Until Discontinued, Sleep 210 (Given - Provider: Leslie Tapia RN) ondansetron (ZOFRAN) injection 4 mg(Linked Group 3) 4 mg, IntraVENous, EVERY 6 HOURS PRN, Starting on 03/03/25 at 1148, Until Discontinued, Nausea, Vomiting, Administer if oral route cannot be used. ondansetron (ZOFRAN-ODT) disintegrating tablet 4 mg(Linked Group 3) 4 mg, Oral, EVERY 8 HOURS PRN, Starting on 03/03/25 at 1148, Until Discontinued, Nausea, Vomiting polyethylene glycol (GLYCOLAX) packet 17 g 17 g, Oral, DAILY PRN, Starting on 03/03/25 at 1148, Until Discontinued, Constipation, First line therapy for constipation potassium bicarb-citric acid (EFFER-K) effervescent tablet 40 mEq(Linked Group 4) 40 mEq, Oral, PRN, Starting on Tue03/04/25 at 1649, Until Discontinued, Per Potassium Replacement Protocol, Administer as alternative if patient unable to tolerate oral tablet. K Lab Replacement Action 3.1 to 3.5 40 mEq ORAL x 1 Under 3.1 Refer to IV replacement protocol Recheck K level in AM. Protocol not for use in patients with CrCl less than 30 mL/min. Do not chew or crush. Dissolve flavored tablets completely in 3 to 4 ounces of cold water; unflavored tablets may be dissolved in 3 to 4 ounces of cold juice. Patient to sip slowly over a 5 to 10 minute period. May further dilute if GI adverse effects occur. 0950 (See Alternative - Provider: Tanner Yates RN) 0611 (See Alternative - Provider: Chacha Mcarthur RN)0919 (See Alternative - Provider: Carmen Ramirez, PERLA) potassium chloride (KLOR-CON M) extended release tablet 40 mEq(Linked Group 4) 40 mEq, Oral, PRN, Starting on Tue03/04/25 at 1649, Until Discontinued, Potassium Replacement, May give alternative linked oral order (ordered as effervescent, packet, or liquid solution) if patient unable to tolerate tablet. K Lab Replacement Action 3.1 to 3.5 40 mEq ORAL x 1 Under 3.1 Refer to IV replacement protocol Recheck K level in AM. Protocol not for use in patients with CrCl less than 30 mL/min. Do not crush, chew, or suck on tablet. Tablet may also be broken in half and each half swallowed separately. 0950 (Given - Provider: Tanner Yates RN) 0611 (Given - Provider: Chacha Mcarthur RN)0919 (Given - Provider: Carmen Ramirez, PERLA) potassium chloride 10 mEq/100 mL IVPB (Peripheral Line)(Linked Group 4) 10 mEq, IntraVENous, PRN, Starting on Tue03/04/25 at 1649, Until Discontinued, at 100 mL/hr, Potassium Replacement, K Lab Replacement Action 2.7 to 3.0 10 mEq IVPB x 6 doses (60 mEq Total) Under 2.7 CALL PROVIDER and administer 10 mEq IVPB x 6 doses (60 mEq Total) Infuse at 10 mEq/hr. Repeat Potassium lab 1 hour after final administration. Protocol not for use in patients with CrCl less than 30 mL/min. 0950 (See Alternative - Provider: Tanner Yates RN) 0611 (See Alternative - Provider: Chacha Mcarthur RN)0919 (See Alternative - Provider: Carmen Ramirez RN) sodium chloride flush 0.9 % injection 5-40 mL 5-40 mL, IntraVENous, PRN, Starting on 03/03/25 at 1148, Until Discontinued, Line Care, After every IV line use, For Line Patency: Peripheral IV = 5 mL; Midline or Central Line = 10 mL/lumen. If following IV push medication, administer flush at same rate as the IV push. Flush volume is determined by type of infusion therapy being given. For non-viscous solutions use: Peripheral IV = 5 mL Midline or Central Line = 10 mL/lumen For viscous solutions (i.e. blood components, parenteral nutrition, contrast media, or after obtaining blood sample) use: Peripheral IV = 10 mL Midline or Central Line = 20 mL/lumen Linked Groups Order Group 1: acetaminophen (TYLENOL) tablet 650 mgJump to med 650 mg, Oral, EVERY 6 HOURS PRN, Starting on 03/03/25 at 1148, Until Discontinued, Pain Mild (1-3), allowed for higher pain score per patient request, Fever, For temp greater than 100.4 F (38 C), Maximum dose of acetaminophen is 4000 mg from all sources in 24 hours. Or acetaminophen (TYLENOL) suppository 650 mgJump to med 650 mg, Rectal, EVERY 6 HOURS PRN, Starting on 03/03/25 at 1148, Until Discontinued, Pain Mild (1-3), allowed for higher pain score per patient request, Fever, For temp greater than 100.4 F (38 C), Administer if oral route cannot be used. Group 2: dextrose bolus 10% 125 mLJump to med 125 mL, IntraVENous, at 937.5 mL/hr, Administer over 8 Minutes, PRN, Other, Blood glucose 40 - 69 mg/dL and patient NOT ALERT or NPO, Starting on 03/03/25 at 1456, Repeat blood glucose in 15 minutes. If blood glucose remains LESS THAN 70 mg/dL, repeat treatment and recheck blood glucose in 15 minutes x 2. If using glycemic management system, dose as instructed per system. If blood glucose remains LESS THAN 70 mg/dL after 2 intravenous boluses start dextrose 10% at 100 mL/hour and notify provider. Or dextrose bolus 10% 250 mLJump to med 250 mL, IntraVENous, at 937.5 mL/hr, Administer over 16 Minutes, PRN, Other, Blood glucose LESS THAN 40 mg/dL and patient NOT ALERT or NPO, Starting on Tue03/03/25 at 1456, Repeat blood glucose in 15 minutes. If blood glucose remains LESS THAN 70 mg/dL, repeat treatment and recheck blood glucose in 15 minutes x 2. If using glycemic management system, dose as instructed per system. If blood glucose remains LESS THAN 70 mg/dL after 2 intravenous boluses start dextrose 10% at 100 mL/hour and notify provider. Group 3: ondansetron (ZOFRAN-ODT) disintegrating tablet 4 mgJump to med 4 mg, Oral, EVERY 8 HOURS PRN, Starting on Tue03/03/25 at 1148, Until Discontinued, Nausea, Vomiting Or ondansetron (ZOFRAN) injection 4 mgJump to med 4 mg, IntraVENous, EVERY 6 HOURS PRN, Starting on 03/03/25 at 1148, Until Discontinued, Nausea, Vomiting, Administer if oral route cannot be used. Group 4: potassium chloride (KLOR-CON M) extended release tablet 40 mEqJump to med 40 mEq, Oral, PRN, Starting on Tue03/04/25 at 1649, Until Discontinued, Potassium Replacement, May give alternative linked oral order (ordered as effervescent, packet, or liquid solution) if patient unable to tolerate tablet. K Lab Replacement Action 3.1 to 3.5 40 mEq ORAL x 1 Under 3.1 Refer to IV replacement protocol Recheck K level in AM. Protocol not for use in patients with CrCl less than 30 mL/min. Do not crush, chew, or suck on tablet. Tablet may also be broken in half and each half swallowed separately. Or potassium bicarb-citric acid (EFFER-K) effervescent tablet 40 mEqJump to med 40 mEq, Oral, PRN, Starting on Tue03/04/25 at 1649, Until Discontinued, Per Potassium Replacement Protocol, Administer as alternative if patient unable to tolerate oral tablet. K Lab Replacement Action 3.1 to 3.5 40 mEq ORAL x 1 Under 3.1 Refer to IV replacement protocol Recheck K level in AM. Protocol not for use in patients with CrCl less than 30 mL/min. Do not chew or crush. Dissolve flavored tablets completely in 3 to 4 ounces of cold water; unflavored tablets may be dissolved in 3 to 4 ounces of cold juice. Patient to sip slowly over a 5 to 10 minute period. May further dilute if GI adverse effects occur. Or potassium chloride 10 mEq/100 mL IVPB (Peripheral Line)Jump to med 10 mEq, IntraVENous, PRN, Starting on Tue03/04/25 at 1649, Until Discontinued, at 100 mL/hr, Potassium Replacement, K Lab Replacement Action 2.7 to 3.0 10 mEq IVPB x 6 doses (60 mEq Total) Under 2.7 CALL PROVIDER and administer 10 mEq IVPB x 6 doses (60 mEq Total) Infuse at 10 mEq/hr. Repeat Potassium lab 1 hour after final administration. Protocol not for use in patients with CrCl less than 30 mL/min. Scheduled Medication Order 04/11/2025 04/12/2025 04/13/2025 acetaminophen (TYLENOL) tablet 1,000 mg 1,000 mg, Oral, EVERY 8 HOURS SCHEDULED (3 times per day), First dose on Tue04/10/25 at 2315, Until Discontinued, Maximum dose of acetaminophen is 4000 mg from all sources in 24 hours. 0547 (Given - Provider: Musa Robertson RN)1355 (Given - Provider: Milady Doshi RN)2224 (Given - Provider: Musa Robertson RN) 0619 (Given - Provider: Musa Robertson RN)1400 (Given - Provider: Valentine Parks)2139 (Given - Provider: Rochelle Mosquera RN) 0636 (Given - Provider: Rochelle Mosquera RN)1319 (Given - Provider: Valentine Parks)2200 (Due) aspirin chewable tablet 81 mg 81 mg, Oral, DAILY, First dose on Tue04/11/25 at 0900, Until Discontinued 09 (Given - Provider: Kelly Worrell RN) 0931 (Given - Provider: Valentine Parks) 0832 (Given - Provider: Valentine Parks) carvedilol (COREG) tablet 25 mg 25 mg, Oral, 2 TIMES DAILY WITH MEALS, First dose on Kirti 04/11/25 at 0800, Until Discontinued, Hold for SBP < 100 and HR <60/min Administer with food to minimize the risk of orthostatic hypotension 09 (Given - Provider: Kelly Worrell RN)1835 (Given - Provider: Kelly Worrell RN) 0931 (Given - Provider: Valentine Parks)1802 (Given - Provider: Valentine Parks) 0831 (Given - Provider: Valentine Parks)1700 (Due) ceFAZolin (ANCEF) 2000 mg in sterile water 20 mL IV syringe (COMPLETED) 2,000 mg, IntraVENous, EVERY 8 HOURS, First dose on Kirti 04/11/25 at 0130, For 24 hours, Administer over 5 mins., Post-op 0154 (Given - Provider: Musa Robertson RN)0918 (Given - Provider: Kelly Worrell RN)1835 (Given - Provider: Kelly Worrell RN) enoxaparin (LOVENOX) injection 40 mg 40 mg, SubCUTAneous, DAILY, First dose on Kirti 04/11/25 at 0900, Until Discontinued, Indication of Use: Prophylaxis-DVT/PE, Administer by deep subCUTAneous injection with pt lying down. Alternate injection sites on abdominal wall. Do not rub site after injection. Check with provider prior to any invasive procedure., Post-op 0906 (Given - Provider: Kelly Worerll RN) 0931 (Given - Provider: Valentine Parks) 0831 (Given - Provider: Valentine Parks) furosemide (LASIX) tablet 20 mg 20 mg, Oral, DAILY, First dose (after last modification) on 04/13/25 at 0900, Until Discontinued 1013 (Held by provider - Provider: Melida Alvarenga DO - Reason: Other) 0821 (Unheld by provider - Provider: Melida Merlos DO)0832 (Given - Provider: Valentine Parks) furosemide (LASIX) tablet 40 mg (CANCELED) 40 mg, Oral, DAILY, First dose on Kirti 04/11/25 at 1315, Until Discontinued 1355 (Given - Provider: Milady Doshi RN) 0931 (Given - Provider: Valentine Parks) gabapentin (NEURONTIN) capsule 300 mg 300 mg, Oral, 3 TIMES DAILY, First dose on Tue04/10/25 at 2315, Until Discontinued 0910 (Given - Provider: Kelly Worrell RN)1355 (Given - Provider: Milady Doshi RN)2224 (Given - Provider: Musa Robertson RN) 0931 (Given - Provider: Valentine Parks)1400 (Given - Provider: Valentine Parks)213 (Given - Provider: Rochelle Mosquera RN) 0831 (Given - Provider: Valentine Parks)1320 (Given - Provider: Valentine Parks)2100 (Due) insulin lispro (HUMALOG,ADMELOG) injection vial 0-16 Units 0-16 Units, SubCUTAneous, 4 TIMES DAILY BEFORE MEALS & NIGHTLY, First dose on Tue04/10/25 at 2230, Until Discontinued, High Dose Corrective Algorithm Glucose: Dose: 70-179 No Insulin 180-249 4 Units 250-299 8 Units 300-349 12 Units Over 349 16 Units and notify physician Administer as soon as possible within 60 minutes of last blood glucose check, Post-op 0800 (Given - Provider: Kelly Worrell RN)1115 (Not Given - Provider: Kelly Worrell RN - Reason: Order parameters not met)1838 (Not Given - Provider: Kelly Worrell RN - Reason: Other - Comment: not taken)222 (Given - Provider: Musa Robertson RN) 0931 (Given - Provider: Valetnine Parks)1400 (Given - Provider: Valentine Parks)180 (Given - Provider: Valentine Parks)2012 (Given - Provider: Rochelle Mosquera RN) 0832 (Given - Provider: Valentine Parks)1320 (Given - Provider: Valentine Parks)1700 (Due)2100 (Due) methocarbamol (ROBAXIN) tablet 500 mg 500 mg, Oral, 3 TIMES DAILY, First dose (after last modification) on Tue04/13/25 at 0900, Until Discontinued 0831 (Given - Provider: Valentine Parks)1320 (Given - Provider: Valentine Parks)2100 (Due) methocarbamol (ROBAXIN) tablet 750 mg (CANCELED) 750 mg, Oral, 4 TIMES DAILY, First dose on Tue04/10/25 at 2315, Until Discontinued 09 (Given - Provider: Kelly Worrell RN)1355 (Given - Provider: Milady Doshi RN)1835 (Given - Provider: Kelly Worrell RN)2223 (Given - Provider: Musa Robertson RN - Comment: previous dose given late) 0931 (Given - Provider: Valentine Parks)1400 (Given - Provider: Valentine Parks)180 (Given - Provider: Valentine Parks)1956 (Not Given - Provider: Rochelle Mosquera RN - Reason: Patient/family refused) pantoprazole (PROTONIX) tablet 40 mg 40 mg, Oral, DAILY BEFORE BREAKFAST, First dose on Tue04/11/25 at 0700, Until Discontinued, Do not crush or break., Post-op 0547 (Given - Provider: Musa Robertson RN) 618 (Given - Provider: Musa Robertson RN) 634 (Given - Provider: Rochelle Mosquera RN) rosuvastatin (CRESTOR) tablet 10 mg 10 mg, Oral, NIGHTLY, First dose on Tue04/11/25 at 2100, Until Discontinued 1935 (Given - Provider: Musa Robertson RN) 2138 (Given - Provider: Rochelle Mosquera RN) 2099 (Due) sodium chloride flush 0.9 % injection 5-40 mL 5-40 mL, IntraVENous, EVERY 12 HOURS SCHEDULED (2 times per day), First dose on Tue04/10/25 at 2230, Until Discontinued, For Line Patency: Peripheral IV = 5 mL; Midline or Central Line = 10 mL/lumen. If following IV push medication, administer flush at same rate as the IV push. Flush volume is determined by type of infusion therapy being given. For non-viscous solutions use: Peripheral IV = 5 mL Midline or Central Line = 10 mL/lumen For viscous solutions (i.e. blood components, parenteral nutrition, contrast media, or after obtaining blood sample) use: Peripheral IV = 10 mL Midline or Central Line = 20 mL/lumen, Post-op 0909 (Not Given - Provider: Kelly Worrell RN - Reason: IV Fluid Infusing)1935 (Given - Provider: Musa Robertson RN) 954 (Not Given - Provider: Valentine Parks - Reason: IV Fluid Infusing)2002 (Given - Provider: Rochelle Mosquera RN) 08 (Not Given - Provider: Valentine Parks - Reason: IV Fluid Infusing)2099 (Due) Continuous Medication Order 04/11/2025 04/12/2025 04/13/2025 lactated ringers infusion (CANCELED) IntraVENous, at 75 mL/hr, CONTINUOUS, Starting on Tue04/10/25 at 2230, Post-op 0144 (Restarted - Provider: Musa Robertson, PERLA)0453 (Rate/Dose Verify - Provider: Musa Robertson, RN)0614 (New Bag - Provider: Muas Robertson, RN)1311 (Stopped - Provider: Musa Robertson, RN) PRN Medication Order 04/11/2025 04/12/2025 04/13/2025 0.9 % sodium chloride infusion IntraVENous, at 5-250 mL/hr, PRN, if patient receiving piggyback infusions and maintenance fluids are not ordered, Starting on Tue04/10/25 at 2205, For piggyback infusion, administer at same rate as piggyback for a total of 25 mL. Enter 25 mL into dose field and piggyback rate into rate field of order. If piggyback is infusing at a rate less than 100 mL/hr, enter 25 mL into dose field and 100 mL/hr into rate field of order., Post-op dextrose 10 % infusion IntraVENous, at 100 mL/hr, CONTINUOUS PRN, if blood glucose remains LESS THAN 70 mg/dL after 2 dextrose 10% intravenous boluses or administration of glucagon, Starting on Tue04/10/25 at 2205, If blood glucose fails to stabilize after 2 dextrose 10% intravenous boluses or glucagon administration, start dextrose 10% infusion at 100 mL/hour and repeat blood glucose at 30 and 60 minutes. If blood glucose is GREATER THAN 70 mg/dL after 60 minutes, discontinue dextrose 10% infusion., Post-op dextrose bolus 10% 125 mL(Linked Group 1) 125 mL, IntraVENous, at 937.5 mL/hr, Administer over 8 Minutes, PRN, Other, Blood glucose 40 - 69 mg/dL and patient NOT ALERT or NPO, Starting on Tue04/10/25 at 2205, Repeat blood glucose in 15 minutes. If blood glucose remains LESS THAN 70 mg/dL, repeat treatment and recheck blood glucose in 15 minutes x 2. If using glycemic management system, dose as instructed per system. If blood glucose remains LESS THAN 70 mg/dL after 2 intravenous boluses start dextrose 10% at 100 mL/hour and notify provider., Post-op dextrose bolus 10% 250 mL(Linked Group 1) 250 mL, IntraVENous, at 937.5 mL/hr, Administer over 16 Minutes, PRN, Other, Blood glucose LESS THAN 40 mg/dL and patient NOT ALERT or NPO, Starting on Tue04/10/25 at 2205, Repeat blood glucose in 15 minutes. If blood glucose remains LESS THAN 70 mg/dL, repeat treatment and recheck blood glucose in 15 minutes x 2. If using glycemic management system, dose as instructed per system. If blood glucose remains LESS THAN 70 mg/dL after 2 intravenous boluses start dextrose 10% at 100 mL/hour and notify provider., Post-op glucagon injection 1 mg 1 mg, SubCUTAneous, PRN, Starting on Tue04/10/25 at 2205, Until Discontinued, Low blood sugar, Blood glucose LESS THAN 70 mg/dL and patient NOT ALERT or NPO and does not have IV access., After administration, attempt intravenous access and start dextrose 10% at 100 mL/hr. Repeat blood glucose in 15 minutes x 2 and notify provider. Reconstitute powder for injection by adding 1 mL of concierge-supplied sterile diluent or sterile water for injection to a vial containing 1 mg of the drug, to provide solutions containing 1 mg/mL. Shake vial gently to dissolve., Post-op glucose chewable tablet 16 g 16 g (4 tablet), Oral, PRN, Starting on Tue04/10/25 at 2205, Until Discontinued, Low blood sugar, If blood glucose is LESS THAN 70 mg/dL and patient is alert and tolerating oral. Give 4 tablets (16g) Repeat blood glucose in 15 minutes. If blood glucose is LESS THAN 70 mg/dL, repeat treatment and recheck blood glucose in 15 minutes x 2. If blood glucose remains LESS THAN 70 mg/dL, notify provider., Post-op hydrALAZINE (APRESOLINE) injection 10 mg 10 mg, IntraVENous, EVERY 4 HOURS PRN, Starting on Tue04/10/25 at 2205, Until Discontinued, For SBP >160 with HR <100/min, Hold for HR >100/min, Post-op labetalol (NORMODYNE;TRANDATE) injection 10 mg 10 mg, IntraVENous, EVERY 4 HOURS PRN, Starting on Tue04/10/25 at 2205, Until Discontinued, High Blood Pressure, for SBP >160 with HR >60, Hold for HR <60/min. Use Hydralazine if HR <60/min , Post-op ondansetron (ZOFRAN) injection 4 mg(Linked Group 2) 4 mg, IntraVENous, EVERY 6 HOURS PRN, Starting on Tue04/10/25 at 2205, Until Discontinued, Nausea, Vomiting, Administer if oral route cannot be used., Post-op ondansetron (ZOFRAN-ODT) disintegrating tablet 4 mg(Linked Group 2) 4 mg, Oral, EVERY 8 HOURS PRN, Starting on Tue04/10/25 at 2205, Until Discontinued, Nausea, Vomiting, Post-op oxyCODONE (ROXICODONE) immediate release tablet 10 mg(Linked Group 3) 10 mg, Oral, EVERY 4 HOURS PRN, Starting on Kirti 04/11/25 at 0445, Until Discontinued, Pain Severe (7-10) 0547 (See Alternative - Provider: Musa Robertson RN)0956 (Given - Provider: Kelly Worrell RN)1936 (Given - Provider: Musa Robertson RN) 0619 (Given - Provider: Musa Robertson RN) oxyCODONE (ROXICODONE) immediate release tablet 5 mg(Linked Group 3) 5 mg, Oral, EVERY 4 HOURS PRN, Starting on Kirti 04/11/25 at 0445, Until Discontinued, Pain Moderate (4-6), allowed for higher pain score per patient request 0547 (Given - Provider: Musa Robertson RN)0956 (See Alternative - Provider: Kelly Worrell RN)1936 (See Alternative - Provider: Musa Robertson RN) 0619 (See Alternative - Provider: Musa Robertson RN) sodium chloride flush 0.9 % injection 5-40 mL 5-40 mL, IntraVENous, PRN, Starting on Tue04/10/25 at 2205, Until Discontinued, Line Care, After every IV line use, For Line Patency: Peripheral IV = 5 mL; Midline or Central Line = 10 mL/lumen. If following IV push medication, administer flush at same rate as the IV push. Flush volume is determined by type of infusion therapy being given. For non-viscous solutions use: Peripheral IV = 5 mL Midline or Central Line = 10 mL/lumen For viscous solutions (i.e. blood components, parenteral nutrition, contrast media, or after obtaining blood sample) use: Peripheral IV = 10 mL Midline or Central Line = 20 mL/lumen, Post-op Linked Groups Order Group 1: dextrose bolus 10% 125 mLJump to med 125 mL, IntraVENous, at 937.5 mL/hr, Administer over 8 Minutes, PRN, Other, Blood glucose 40 - 69 mg/dL and patient NOT ALERT or NPO, Starting on Tue04/10/25 at 2205, Repeat blood glucose in 15 minutes. If blood glucose remains LESS THAN 70 mg/dL, repeat treatment and recheck blood glucose in 15 minutes x 2. If using glycemic management system, dose as instructed per system. If blood glucose remains LESS THAN 70 mg/dL after 2 intravenous boluses start dextrose 10% at 100 mL/hour and notify provider., Post-op Or dextrose bolus 10% 250 mLJump to med 250 mL, IntraVENous, at 937.5 mL/hr, Administer over 16 Minutes, PRN, Other, Blood glucose LESS THAN 40 mg/dL and patient NOT ALERT or NPO, Starting on Tue04/10/25 at 2205, Repeat blood glucose in 15 minutes. If blood glucose remains LESS THAN 70 mg/dL, repeat treatment and recheck blood glucose in 15 minutes x 2. If using glycemic management system, dose as instructed per system. If blood glucose remains LESS THAN 70 mg/dL after 2 intravenous boluses start dextrose 10% at 100 mL/hour and notify provider., Post-op Group 2: ondansetron (ZOFRAN-ODT) disintegrating tablet 4 mgJump to med 4 mg, Oral, EVERY 8 HOURS PRN, Starting on Tue04/10/25 at 2205, Until Discontinued, Nausea, Vomiting, Post-op Or ondansetron (ZOFRAN) injection 4 mgJump to med 4 mg, IntraVENous, EVERY 6 HOURS PRN, Starting on Tue04/10/25 at 2205, Until Discontinued, Nausea, Vomiting, Administer if oral route cannot be used., Post- op Group 3: oxyCODONE (ROXICODONE) immediate release tablet 5 mgJump to med 5 mg, Oral, EVERY 4 HOURS PRN, Starting on Tue04/11/25 at 0445, Until Discontinued, Pain Moderate (4-6), allowed for higher pain score per patient request Or oxyCODONE (ROXICODONE) immediate release tablet 10 mgJump to med 10 mg, Oral, EVERY 4 HOURS PRN, Starting on Kirti 04/11/25 at 0445, Until Discontinued, Pain Severe (7-10) FOR RECORDS PERTAINING TO PATIENTS WHO ARE [...] BE BASED ON THE PRIMARY CLINICAL RECORDS. [employer] provides no warranty or guarantee of the accuracy or completeness of information in this document.
--- NOTE | 2025-07-20 10:31 | XR_ITS ---
[place] [address] Patient Name: TANIYA MCNEAL MRN: [id number] date: 1950 Sex: F Assigned Patient Location: ER Current Patient Location: ER Accession/Order Number: [id number] Exam Date: 07/20/2025 11:20 Report Date: 07/20/2025 12:00 At the request of: DANTE JESUS MD Procedure: XR knee RT 3V 3 views knee plain film COMPARISON: None HISTORY: Medial right knee pain. No injury ACUTE FINDINGS: No acute findings DEGENERATIVE CHANGE: Marked narrowing of medial compartment. Suspected 1 cm osteochondral lesion of the medial femoral condyle chondrocalcinosis of menisci. Superior patellar enthesophyte. 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 Impression dictated by: Omid Echevarria M.D. 07/20/2025 12:00 PM Dictation Location: [place] [address] Electronically authenticated by: [id number] Y Date: 07/20/2025 12:00
[2025-07-20] MEDS: OXYCODONE HCL/ACETAMINOPHEN 5MG/325MG 1 TAB PO (10:58)
--- NOTE | 2025-07-20 13:05 | ED.GENADUL1 ---
HPI HPI - General Adult General Chief complaint: Extremity Injury, Lower Stated complaint: BACK PAIN, R KNEE PAIN Time Seen by Provider: 07/20/25 10:25 Source: patient Mode of arrival: ambulance Limitations: no limitations History of Present Illness HPI narrative: The patient is presenting to the ER with a chronic back pain and a new right knee pain that according to her did not develop after any movement, he usually needs help getting out of the bed by a walker and relative at the bedside also to help her The patient does not ambulate out of the bed that much because of her pain No incontinence of stool or urine The patient back pain has exacerbated over the last few days as she has been sitting down more, and she does not have radiation down her legs from the back pain but she have right knee pain No hip pain Related Data Home Medications ?Medication ?Instructions ?Recorded ?Confirmed allopurinol 100 mg tablet 100 mg PO QAM 03/02/25 03/02/25 amlodipine 5 mg tablet 5 mg PO QAM 03/02/25 03/02/25 carvedilol 25 mg tablet 25 mg PO BID 03/02/25 03/02/25 ergocalciferol (vitamin D2) 1,250 1,250 mcg PO QWEEK 03/02/25 03/02/25 mcg (50,000 unit) capsule furosemide 40 mg tablet 40 mg PO QAM 03/02/25 03/02/25 lisinopril 40 mg tablet 40 mg PO QAM 03/02/25 03/02/25 metformin 1,000 mg tablet 1,000 mg PO BID 03/02/25 03/02/25 rosuvastatin 10 mg tablet 10 mg PO QAM 03/02/25 03/02/25 Previous Rx's ?Medication ?Instructions ?Recorded dicyclomine 10 mg capsule 10 mg PO TID PRN abdominal pain 02/27/25 #12 caps hydrocodone 5 mg-acetaminophen 325 1 tab PO Q8H PRN pain 4 days #12 02/27/25 mg tablet tabs ondansetron 4 mg disintegrating 4 mg PO Q8H PRN nausea and 02/27/25 tablet vomiting 4 days #12 tabs oxycodone-acetaminophen 5 mg-325 1 tab PO Q8H PRN pain 3 days #9 07/20/25 mg tablet (Percocet) tabs prednisone 20 mg tablet 40 mg (2 x 20 mg) PO DAILY 3 days 07/20/25 #6 tabs Allergies Allergy/AdvReac Type Severity Reaction Status Date / Time No Known Drug Allergies Allergy Verified 07/20/25 10:16 Opioid HPI Opioid Management Most Recent Opioid Data: Last Pain Scale 8 Today, 10:16 Review of Systems ROS Status of ROS 10 or more systems reviewed and unremarkable except as noted in history and below [facility] Medical History (Updated 07/20/25 @ 13:05 by Radha Roy MD) CHF (congestive heart failure) ?I50.9 - Heart failure, unspecified (ICD-10) Gout ?M10.9 - Gout, unspecified (ICD-10) Obesity ?E66.9 - Obesity, unspecified (ICD-10) Diabetes ?E11.9 - Type 2 diabetes mellitus without complications (ICD-10) HTN (hypertension) ?I10 - Essential (primary) hypertension (ICD-10) High cholesterol ?E78.00 - Pure hypercholesterolemia, unspecified (ICD-10) Social History Little interest or pleasure in doing things: not at all Feeling down, depressed, or hopeless: not at all Exam Narrative Exam Narrative: Nurses notes and vital signs reviewed and patient is not hypoxic. Right lower extremity: The patient have effusion obvious on the evaluation of the right knee with no redness no hotness but there is tenderness upon palpation and with movement patient still have full range of movement with pain No vascular injury detected General: Well-appearing and in no apparent distress. Skin: Warm, dry, no pallor noted. No rash.. Cardiovascular: Regular Rate and Rhythm without murmur, gallop or rub. Respiratory: No accessory muscle use or respiratory distress. Lungs are clear to auscultation, no wheezing, rales or rhonchi Chest Wall: no tenderness Back: No midline thoracic or lumbar vertebral tenderness. No CVA tenderness the patient have mostly tenderness over the sacral area bilaterally GI: Abdomen is soft, non-distended. Normal bowel sounds. No masses appreciated. No tenderness to palpation. No rebound, guarding, or rigidity noted. Neurological: A&O x4. No cranial nerve dysfunction observed. No truncal ataxia. Moves all extremities. Sensation intact. Psychiatric: Cooperative and interactive. Normal mood and affect. Constitutional Vital Signs, click to edit/add: Last Vital Signs Temp 99.6 F 07/20/25 10:16 Pulse 62 07/20/25 10:16 Resp 16 07/20/25 10:16 BP 164/60 H 07/20/25 10:16 Pulse Ox 95 07/20/25 10:16 O2 Del Method Room Air 07/20/25 10:16 Course Vital Signs Vital signs: Vital Signs Temperature 99.6 F 07/20/25 10:16 Pulse Rate 62 07/20/25 10:16 Respiratory Rate 16 07/20/25 10:16 Blood Pressure 164/60 H 07/20/25 10:16 Pulse Oximetry 95 07/20/25 10:16 Oxygen Delivery Method Room Air 07/20/25 10:16 Temperature 99.6 F 07/20/25 10:16 Pulse Rate 62 07/20/25 10:16 Respiratory Rate 16 07/20/25 10:16 Blood Pressure 164/60 H 07/20/25 10:16 Pulse Oximetry 95 07/20/25 10:16 Oxygen Delivery Method Room Air 07/20/25 10:16 Medical Decision Making MDM Narrative Medical decision making narrative: X-ray of the patient's right knee shows osteoarthritis with moderate effusion Patient is feeling better after she was treated initially with Toradol and Percocet Patient discharged home with Percocet and 3 days of prednisone with referred to her primary care as outpatient She was instructed on rest and Kevin wrap also was applied But the patient also was instructed about the importance of physical therapy for her back The patient is to follow up with primary care physician in next 2-3 days or to return to the emergency department should any of the signs or symptoms worsen or new symptoms develop. The patient agrees with the following Diagnosis and Treatment plan and the patient will be discharged home. Discharge Plan Discharge Chief Complaint: Extremity Injury, Lower Clinical Impression: Arthritis of knee Patient Disposition: Home, Self-Care Time of Disposition Decision: 13:05 Condition: Good Prescriptions / Home Meds: New prednisone 20 mg tablet 40 mg PO DAILY 3 Days Qty: 6 0RF oxycodone-acetaminophen [Percocet] 5-325 mg tablet 1 tab PO Q8H PRN (Reason: pain) 3 Days Qty: 9 0RF No Action dicyclomine 10 mg capsule 10 mg PO TID PRN (Reason: abdominal pain) Qty: 12 0RF ondansetron 4 mg tablet,disintegrating 4 mg PO Q8H PRN (Reason: nausea and vomiting) 4 Days Qty: 12 0RF hydrocodone-acetaminophen 5-325 mg tablet 1 tab PO Q8H PRN (Reason: pain) 4 Days Qty: 12 0RF allopurinol 100 mg tablet 100 mg PO QAM amlodipine 5 mg tablet 5 mg PO QAM carvedilol 25 mg tablet 25 mg PO BID ergocalciferol (vitamin D2) 1,250 mcg (50,000 unit) capsule 1,250 mcg PO QWEEK furosemide 40 mg tablet 40 mg PO QAM lisinopril 40 mg tablet 40 mg PO QAM metformin 1,000 mg tablet 1,000 mg PO BID rosuvastatin 10 mg tablet 10 mg PO QAM Print Language: Georgian Instructions: Osteoarthritis (DC) Referrals: [facility] [Primary Care Provider, Family Practice] - 1 week Discharge Date/Time: 07/20/25 13:38
== END 2025-07-20 13:38 | disposition home or self-care (01) ==
PROVIDERS: Emergency Provider Emergency Medicine; PCP Family Medicine
DX: M17.11 Unilateral primary osteoarthritis, right knee (principal)
CPT/HCPCS: 73562; 99283

== ENCOUNTER 2025-08-20 07:21 | Outpatient (OUT) | payer MEDICARE, OTHER, SELFPAY ==
--- OUTSIDE RECORDS SUMMARY | 2013-01-12 06:15 | XMS_ITS | Continuity of Care Document ---
Author Organization [facility] Address [address] [place] [address] Phone Care Team Providers Care Supervisor Respiratory Name Role Phone Mohan Cooper Unavailable Unavailable Procedures Procedure Date CHICKEN POX VACCINE, [place] OFFICE/OUTPATIENT VISIT, EST IMMUNIZATION ADMIN CHICKEN POX VACCINE, [place] Advance Directives Directive Yes / No Effective [...] Copied on Encounter OFFICE/OUTPAT IENT VISIT, EST [facility], [address], [place], [id number], [place] tel:[phone] [facility] Need for prophylactic vaccination and inoculation against varicella [facility]. [address], [place], [id number], [place]. tel:[phone] Family History Family Member Type Diagnosis Age At Onset No Information Immunizations Vaccine Date Status Comments Varicella administered Source: [facility] unization Record Payers Payer name Insurance type Covered green party ID Authorashlee rouse(s) No Information Social History [...]
--- OUTSIDE RECORDS SUMMARY | 2025-08-20 07:23 | XMS_ITS | Encounter Summary ---
Author Organization [facility] Address [id number] [address] [place] [address] Care Team Providers Care Turf And Grounds Supervisor Name Role Phone ChaseWild Jailene VIRAMONTES Primary Care Provider [phone] Encounter Details Date Type Department Care Team (Late st Contact Info) Description 12/16/2023 Orders Only [facility] - Family Medicine [address] [place] [id number] External, Scanning Provider Social History Tobacco Use Types Packs/Day Years Used Date Smoking Tobacco: Never Smokeless Tobacco: Never Social Connection and Isolat ion Panel [NHANES] Answer Date Recorded In a typical week, how many times do you talk on the phone with family, friends, or neighbors? More than three times a week 03/10/2023 How often do you get togethe r with friends or relatives? Once a week 03/10/2023 How often do you attend chur or mu-ism services? Never 03/10/2023 Do you belong to any clubs o r organizations such as baptism groups, unions, fraternal or athletic groups, or school groups? Yes 03/10/2023 How often do you attend meet ings of the clubs or organizations you belong to? Never 03/10/2023 Are you , , di vorced, , never , or living with a partner? 03/10/2023 AUDIT-C Answer Date Recorded Q1: How often do you have a drink containing alcohol? Never 03/10/2023 Q2: How many drinks containi ng alcohol do you have on a typical day when you are drinking? Patient does not drink Q3: How often do you have si x or more drinks on one occasion? Never 03/10/2023 Overall Financial Resource Strain (CARDIA) Answe r Date Recorded How hard is it for you to pa y for the very basics like food, housing, medical care, and heating? Not hard at all 03/08/2023 PHQ-2 Answer Date Recorded Total Score 0 09/12/2023 [facility] - Occupational Stress Questionnaire Answer Date Recorded Do you feel stress - tense, restless, nervous, or anxious, or unable to sleep at night because your mind is troubled all the time - these days? Not at all 03/10/2023 Exercise Vital Sign Answer Date Recorde d On average, how many days pe r week do you engage in moderate to strenuous exercise (like a brisk walk)? 3 days 03/10/2023 On average, how many minutes do you engage in exercise at this level? 60 min 03/10/2023 PRAPARE - Transportation Answer Date Re corded In the past 12 months, has l ack of transportation kept you from medical appointments or from getting medications? No 12/2022 In the past 12 months, has l ack of transportation kept you from meetings, work, or from getting things needed for daily living? No 03/08/2023 Housing Instability Answer Date Recorde d Are you worried or concerned that in the next two months you may not have stable housing that you own, rent or stay in as a part of a household? No 03/08/2023 Childcare Answer Date Recorded Do problems getting child ca re make it difficult for you to work or study? No 03/10/2023 Employment Answer Date Recorded Do you need help finding a l al career center and/or a training program? No 03/10/2023 Hunger Screening Answer Date Recorded Within the past 12 months we worried whether our food would run out before we got money to buy more. Never True 09/12/2023 Within the past 12 months th e food we bought just didn't last and we didn't have money to get more. Never True 09/12/2023 Purpose - Life Answer Date Recorded Purpose and direction in life Unknown Comments No Sex and Gender Information Value Date Recorded Sex Assigned at Not on file Legal Sex Female 11:42 AM EDT Gender Identity Not on file Sexual Orientation Not on file documented as of this encounter Plan of Treatment Upcoming Encounters Date Type Department Care Team (Late st Contact Info) Description 10/16/2025 8:30 AM EST Office Visit [facility] - Family Medicine [address] [place] [address] Wild Stone DO [address] [facility] [address] documented as of this encounter Procedures Procedure Name Priority Date/Time Associated Diagnosis Comments MULTIPLE LABS Routine 12/13/2023 12:45 PM EST documented in this encounter Results * Multiple labs (12/13/2023 12:45 PM EST) us Scanning Provider External RI IMAGING Final Result Performing Organization Address City/State/[facility] Co de Phone Number MANUALLY TRANSCRIBED RESULTS documented in this encounter Visit Diagnoses Not on filedocumented in this encounter Additional Health Concerns Assessment Noted Time PHQ-9 Depression Total Score: 0 09/12/20 23 1:46 PM EST documented as of this encounter Care Teams Turf And Grounds Supervisor Relationship Specialty Start Date End Date Wild Stone DO [address] [facility] [address] PCP - General Family Medicine 11/30/17 documented as of this encounter
--- OUTSIDE RECORDS SUMMARY | 2025-08-20 07:23 | XMS_ITS | Encounter Summary ---
Author Organization [facility] Address [id number] [address] [place] [address] Care Team Providers Care Growth Hacker Name Role Phone ChaseWild Jailene VIRAMONTES Primary Care Provider Encounter Details Date Type Department Care Team (Late st Contact Info) Description 12/20/2023 Orders Only [facility] - Family Medicine [address] [place] [id number] External, Scanning Provider Social History Tobacco Use [...] How often do you attend chur or pentecostal services? Never 03/10/2023 Do you belong to any clubs o r organizations such as rastafari groups, unions, fraternal or athletic groups, or [...] PHQ-2 Answer Date Recorded Total Score 0 12/23/2023 [facility] - Occupational Stress [...] got money to buy more. Never True 12/23/2023 Within the past 12 months th e food we bought just didn't last and we didn't have money to get more. Never True 12/23/2023 Purpose - Life Answer Date Recorded Purpose [...] Medicine - Family Medicine [address] [place] [address] Wild Stone DO [address] [facility] [place] [address] documented as of this encounter Procedures Procedure Name Priority Date/Time Associated Diagnosis Comments ECHO DOPPLER Routine 12/20/2023 2:25 PM EST documented in this encounter Results * Echo Doppler (12/20/2023 2:25 PM EST) Anatomical Region Laterality Modality Chest N/A Ultrasound us Scanning Provider External CV ECHO ORDERABLES Fi nal Result documented in this encounter Visit Diagnoses Not on filedocumented in this encounter Additional Health Concerns Assessment Noted Time PHQ-9 Depression Total Score: 0 09/12/20 23 1:46 PM EST documented as of this encounter Care Teams Growth Hacker Relationship Specialty Start Date End Date Wild Stone DO [address] [facility] [place] [place] [address] PCP - General Family Medicine 11/30/17 documented as of this encounter
--- OUTSIDE RECORDS SUMMARY | 2025-08-20 07:23 | XMS_ITS | Encounter Summary ---
Author Organization [facility] tem Address [facility] [id number] [address] [place] [address] Care Team Providers Care Litigation Associate Name Role Phone Wild Stone DO Primary Care Provider [phone] Encounter Details Date Type Department Care Team (Late st Contact Info) Description 01/02/2024 Orders Only [facility] - Family Medicine [address] [place] [address] Widl Stone DO [address] [place] [address] Social History Tobacco Use Types Packs/Day Years Used Date Smoking Tobacco: Never Smokeless Tobacco: Never Alcohol Use Standard Drinks/Week Comments Not Currently 0 (1 standard drink = 0.6 oz pur e alcohol) Social Connection and Isolat ion Panel [NHANES] Answer Date Recorded In a typical week, how many times do you talk on the phone with family, friends, or neighbors? More than three times a week 03/10/2023 How often do you get togethe r with friends or relatives? Once a week 03/10/2023 How often do you attend chur ch or advent services? Never 03/10/2023 Do you belong to any clubs o r organizations such as caodaism groups, unions, fraternal or athletic groups, or [...] Answer Date Recorded Total Score 0 12/23/2023 [facility] Occupat ional Health - Occupational Stress [...] Do you need help finding a l ocal career center and/or a training program? No [...] Medicine - Family Medicine [address] [place] [address] Wild Stone DO [address] [facility] [place] [address] documented as of this encounter Procedures Procedure Name Priority Date/Time Associated Diagnosis Comments MULTIPLE LABS Routine 12/30/2023 5:14 PM EST documented in this encounter Results * Multiple labs (12/30/2023 5:14 PM EST) us Scanning Provider External MT IMAGING Final Result MANUALLY TRANSCRIBED RESULTS documented in this encounter Visit Diagnoses Not on filedocumented in this encounter Additional Health Concerns Assessment Noted Time PHQ-9 Depression Total Score: 0 12/23/19 24 9:47 AM EST documented as of this encounter Care Teams Litigation Associate Relationship Specialty Start Date End Date Wild Stone DO [address] [facility] [place] [address] PCP - General Family Medicine 11/30/17 documented as of this encounter
--- OUTSIDE RECORDS SUMMARY | 2025-08-20 07:23 | XMS_ITS | Encounter Summary ---
Author Organization [facility] Address [id number] [address] [place] [address] Care Team Providers Care Smoking Tobacco Packing Machine Hand Name Role Phone DavidWild recinos Jailene VIRAMONTES Primary Care Provider [phone] Encounter Details Date Type Department Care Team (Late st Contact Info) Description 08/01/2025 Orders Only [facility] - Family Medicine [address] [place] [address] Ref Prov, [place] [address] Social History Tobacco Use Types Packs/Day Years [...] often do you attend chur ch or confucianism services? Never 03/10/2023 Do you belong to any clubs o r organizations such as sabianist groups, unions, fraternal or athletic groups, or [...] care, and heating? Not hard at all 03/19/2024 PHQ-2 Answer Date Recorded Total Score 0 07/17/2025 [facility] - Occupational Stress Questionnaire Answer Date [...] medical appointments or from getting medications? No 03/07 In the past 12 months, has l ack of transportation kept you from meetings, work, or from getting things needed for daily living? No 03/19/2024 Housing Instability Answer Date Recorde d Are you worried or concerned that in the next two months you may not have stable housing that you own, rent or stay in as a part of a household? No 03/19/2024 Childcare Answer Date Recorded Do problems getting child ca re make it difficult for you to work or study? No 03/10/2023 Employment Answer Date Recorded Do you need help finding a [facility] career center and/or a training program? No 03/10/2023 Hunger Screening Answer Date Recorded Within the past 12 months we worried whether our food would run out before we got money to buy more. Never True 07/17/2025 Within the past 12 months th e food we bought just didn't last and we didn't have money to get more. Never True 07/17/2025 Purpose - Life Answer Date Recorded Purpose [...] Medicine - Family Medicine [address] [place] [address] Wild Stone DO [address] [place] [address] documented as of this encounter Procedures Procedure Name Priority Date/Time Associated Diagnosis Comments XR CHEST 1 VW Routine 08/01/2025 8:50 AM EDT documented in this encounter Results * X-ray chest 1 view (08/01/2025 8:50 AM EDT) Anatomical Region Laterality Modality Body, Chest N/A Computed Radiogr aphy us Not In System Ref Prov IMG DIAGNOSTIC IMAGING OR DERABLES Final Result documented in this encounter Visit Diagnoses Not on filedocumented in this encounter Additional Health Concerns Assessment Noted Time PHQ-9 Depression Total Score: 0 07/17/20 8:54 AM EDT A Body Mass Index follow-up plan has been documented for the patient 05/14/2025 3:54 PM EDT documented as of this encounter Care Teams Smoking Tobacco Packing Machine Hand Relationship Specialty Start Date End Date Wild Stone DO [address], [facility] [place] [address] PCP - General Family Medicine 11/30/17 documented as of this encounter
--- OUTSIDE RECORDS SUMMARY | 2025-08-20 07:23 | XMS_ITS | Encounter Summary ---
Author Organization [facility] Address [facility] [id number] [address] [place] [address] Care Team Providers Care Seat Cover Installer Name Role Phone ChaseWild Jailene VIRAMONTES Primary Care Provider Encounter Details Date Type Department Care Team (Late st Contact Info) Description 09/01/2023 Orders Only [facility] - Family Medicine [address] [place] [address] External, Scanning Provider Social History Tobacco Use [...] How often do you attend chur or sikh services? Never 03/10/2023 Do you belong to any clubs o r organizations such as hinduism groups, unions, fraternal or athletic groups, or [...] PHQ-2 Answer Date Recorded Total Score 0 07/12/2023 [facility] of Occupat ional Health - Occupational [...] Recorded Do you need help finding a BDA ocal career center and/or a training program? No 03/10/2023 Purpose - Life Answer Date Recorded Purpose [...] Medicine - Family Medicine [address] [place] [address] Wild Stone DO [address], [facility] [place] [address] documented as of this encounter Procedures Procedure Name Priority Date/Time Associated Diagnosis Comments DIABETES EYE EXAM Routine 09/01/2023 4:39 PM EDT documented in this encounter Results * DIABETES EYE EXAM (09/01/2023 4:39 PM EDT) us Scanning Provider External HEALTH MAINTENANCE Fi nal Result MANUALLY TRANSCRIBED RESULTS documented in this encounter Visit Diagnoses Not on filedocumented in this encounter Additional Health Concerns Assessment Noted Time PHQ-9 Depression Total Score: 0 07/12/20 23 1:15 PM EDT documented as of this encounter Care Teams Seat Cover Installer Relationship Specialty Start Date End Date Wild Stone DO [address], [facility] [place] [address] PCP - General Family Medicine 11/30/17 documented as of this encounter
--- OUTSIDE RECORDS SUMMARY | 2025-08-20 07:23 | XMS_ITS | Encounter Summary ---
Author Organization [employer] tem Address [id number] [address] [place] [address] Care Team Providers Care Relocation Associate Name Role Phone Wild Stone DO Primary Care Provider [phone] Reason for Visit * Reason Comments Med Refill Encounter Details Date Type Department Care Team (Late Contact Info) Description 01/02/2023 Refill [facility] - Family Medicine [address] [place] [address] Wild Stone DO [address] [facility], [place] [address] Social History Tobacco Use Types Packs/Day Years Used Date Smoking Tobacco: Never Smokeless Tobacco: Never Childcare Answer Date Recorded Childcare Unknown 04/09/2019 Employment Answer Date Recorded Employment Unknown 04/09/2019 Purpose - Life Answer Date Recorded Purpose and direction in life Unknown Comments No Sex and Gender Information Value Date Recorded Sex Assigned at Not on file Legal Sex Female 11:42 AM EDT Gender Identity Not on file Sexual Orientation Not on file documented as of this encounter Plan of Treatment Upcoming Encounters Date Type Department Care Team ([facility] Contact Info) Description 10/16/2025 8:30 AM EST Office Visit [facility] - Family Medicine [address] [place] [address] Wild Stone DO [address], [place] [address] documented as of this encounter Visit Diagnoses Not on filedocumented in this encounter Care Teams Relocation Associate Relationship Specialty Start Date End Date Wild Stone DO [address] [facility], [address] [place], [place] [id number] PCP - General Family Medicine 11/30/17 documented as of this encounter
--- OUTSIDE RECORDS SUMMARY | 2025-08-20 07:23 | XMS_ITS | Encounter Summary ---
Author Organization [facility] Address [address] [place] [address] Care Team Providers Care Supply Tech Name Role Phone Unallocated, Noms Provider Primary Care [facility] Encounter Details Date Type Department Care Team ([facility] st Contact Info) Description 04/07/2023 External Result Encounter [facility] External Department Unsolicited Rose Ohara MD [address] [place] [address] Social History Tobacco Use Types Packs/Day Years Used Date Smoking Tobacco: Never Assessed Comments Unknown Sex and Gender Information Value Date Recorded Sex Assigned at Not on file Legal Sex Female 10:07 AM EST Gender Identity Not on file Sexual Orientation Not on file documented as of this encounter Plan of Treatment Not on file documented as of this encounter Procedures Procedure Name Priority Date/Time Associated Diagnosis Comments US UPPER EXTREMITY NON-VASC RIGHT 04/07/2023 8:44 AM EDT documented in this encounter Results * US UPPER EXTREMITY NON-VASC RIGHT (04/07/2023 8:44 AM EDT) Anatomical Region Laterality Modality Right Ultrasound 04/07/2023 8:44 AM EDT Impressions 05/03/2023 2:59 PM EDT Benign-appearing lymph nodes within the right axilla, grossly unchanged from the prior study. Impression dictated by: Miki Kruse Jr. D.OPablo04/07/2023 8:57 AM Dictation Location: [facility] Tech: Valerie Frankel Transcribed By: SRUTHI 04/07/23 0857 Dictated By: Miki Kruse Jr, DO 04/07/23 0844 Signed By: <Electronically signed by Miki Kruse Jr, in OV> 04/07/23 0857 Narrative 05/03/2023 2:59 PM EDT [place] [id number] Ultrasound Report Signed Patient: Tosha Macias MR#: [id number] : 1950 Acct:[id number] Age/Sex: 72 / F ADM Date: 04/07/23 Loc: XT Room: Type: REG RCR Attending Dr: Rose Ohara MD Ordering [...] within the right axilla. US/US extremity nonvascular Procedure Note Radiology, Radiologist, MD - 05/03/[address] [address] Ultrasound Report Signed Patient: Tosha Macias KMR#: [id number] : 1950Acct:[id number] Age/Sex: 72 / FADM Date: 04/07/23 Loc: XT Room:Type: REG RCR Attending Dr: Rose Ohara MD Ordering Provider: Rose Ohara MD Date of Service: 04/07/23 US/US extremity nonvascular: SurveillanceMelanoma Copies to: Rose Ohara MD Exam: Right axillary ultrasound. Reason for exam: History of melanoma. Follow-up. COMPARISON: Prior right axillary ultrasound 09/21/2022. TECHNIQUE: Grayscale and color Doppler images of the right axilla wereobtained. FINDINGS: Imaging of the right axilla demonstrates multiplebenign-appearing lymph nodes, largest measuring 1.9 cm in greatest dimension, unchanged from the priorultrasound study. No sinister- appearing lymph nodes are identified. No suspicious mass is seen withinthe right axilla. US/US extremity nonvascular IMPRESSION: Benign-appearing lymph nodes within the right axilla, grossly unchangedfrom the prior study. Impression dictated by: Miki Kruse Jr., D.OPablo04/07/2023 8:57 AM Dictation Location: [facility] Tech: Valerie Frankel Transcribed By: SRUTHI 04/07/23 0857 Dictated By: Miki Kruse Jr, DO 04/07/23 0844 Signed By: <Electronically signed by Miki Kruse Jr DO inOV> 04/07/23 0857 us Rose Ohara MD IMG US PROCEDURES Final Result documented in this encounter Visit Diagnoses Not on filedocumented in this encounter Care Teams Supply Tech Relationship Specialty Start Date End Date Unallocated, Noms Provider, [facility] [place] [address] PCP - General Family Medicine 12/06/23 documented as of this encounter
--- OUTSIDE RECORDS SUMMARY | 2025-08-20 07:23 | XMS_ITS | Encounter Summary ---
Author Organization [facility] tem Address [id number] [address] [place] [address] Care Team Providers Care Fill Technician Name Role Phone Wild Stone DO Primary Care Provider [phone] Reason for Visit * Reason Comments Med Refill Encounter Details Date Type Department Care Team (Late st Contact Info) Description 08/06/2025 Refill [facility] - Family Medicine [address] [place] [address] Wild Stone DO [address], [place] [address] 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 ([facility]) Social History Tobacco Use Types Packs/Day Years [...] often do you attend chur ch or church services? Never 03/10/2023 Do you belong to any clubs o r organizations such as presybeterian groups, unions, fraternal or athletic groups, or [...] Answer Date Recorded Total Score 0 07/17/2025 [facility] ional Health - Occupational [...] Recorded Do you need help finding a [facility] career center and/or a training program? No [...] Medicine - Family Medicine [address] [place] [address] Wild Stone DO [address] [facility] [address] documented as of this encounter Visit Diagnoses Diagnosis 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 ([facility]) documented in this encounter Additional Health Concerns Assessment Noted Time PHQ-9 Depression Total Score: 0 07/17/20 25 8:54 AM EDT A Body Mass Index follow-up plan has been documented for the patient 05/14/2025 3:54 PM EDT documented as of this encounter Care Teams Fill Technician Relationship Specialty Start Date End Date Wild Stone DO [address] [facility] [place] [address] PCP - General Family Medicine 11/30/17 documented as of this encounter
--- OUTSIDE RECORDS SUMMARY | 2025-08-20 07:23 | XMS_ITS | Encounter Summary ---
Author Organization [employer] Address [id number] [address] [place] [address] Care Team Providers Care [address] Light Servicer Helper Name Role Phone Chase Wild Dent DO Primary Care Provider Encounter Details Date Type Department Care Team (Late st Contact Info) Description 07/18/2024 Telephone [facility] - Family Medicine [address] [place] [address] Adele Ross CMA Social History Tobacco Use Types Packs/Day Years [...] often do you attend chur ch or jainism services? Never 03/10/2023 Do you belong to any clubs o r organizations such as worship groups, unions, fraternal or athletic groups, or [...] PHQ-2 Answer Date Recorded Total Score 0 03/20/2024 [facility] Occupat ional Health - Occupational [...] Recorded Do you need help finding a [facility] career center and/or a training program? No 03/10/2023 Hunger Screening Answer Date Recorded Within the past 12 months we worried whether our food would run out before we got money to buy more. Never True 07/16/2024 Within the past 12 months th e food we bought just didn't last and we didn't have money to get more. Never True 07/16/2024 Purpose - Life Answer Date Recorded Purpose and direction in life Unknown Comments No Sex and Gender Information Value Date Recorded Sex Assigned at Not on file Legal Sex Female 11:42 AM EDT Gender Identity Not on file Sexual Orientation Not on file documented as of this encounter Miscellaneous Notes * Telephone Encounter - Adele Ross CMA - 07/18/2024 8:53 AM EDT ----- Message from Dr. Wild Stone DO sent at 07/17/2024 5:01 PM EDT ----- Her A1c was high at 8.5%. She should restart insulin. Should be able to get that for only 35 dollars a month. I would start with 10 units daily. Her TSH was normal. Her microalbumin was undetectable so or ACR could not be calculated. I called pt and she verbally states she understands.But would she take the Novolog pen with insulin? Pharmacy is listed and correct. * Telephone Encounter - Wild Stone DO - 07/18/2024 8:53 AM EDT Yes. She should still continue the sliding scale coverage with NovoLog * Telephone Encounter - Adele Ross CMA - 07/18/2024 8:53 AM EDT I called and left Voice Mail. documented in this encounter Plan of Treatment Upcoming Encounters Date Type Department Care Team (Late st Contact Info) Description 10/16/2025 8:30 AM EST Office Visit [facility] - Family Medicine [address] [place] [address] Wild Stone DO [address], [facility] [place] [address] documented as of this encounter Visit Diagnoses Not on filedocumented in this encounter Additional Health Concerns Assessment Noted Time PHQ-9 Depression Total Score: 0 03/20/20 24 11:12 AM EDT documented as of this encounter Care Teams Street Light Servicer Helper Relationship Specialty Start Date End Date Wild Stone DO [address] [facility], [facility] [place] [address] PCP - General Family Medicine 11/30/17 documented as of this encounter
--- OUTSIDE RECORDS SUMMARY | 2025-08-20 07:23 | XMS_ITS | Encounter Summary ---
Author Organization [employer] tem Address [id number] [address] [place] [address] Care Team Providers Care C Iron Worker Name Role Phone Wild Stone DO Primary Care Provider [phone] Encounter Details Date Type Department Care Team (Late st Contact Info) Description 12/21/2022 Orders Only [facility] - Family Medicine [address] [place] [address] External, Scanning Provider Social History Tobacco Use [...] Encounters Date Type Department Care Team (Late Contact Info) Description 10/16/2025 8:30 AM EST Office Visit [facility] - Family Medicine [address] [place] [phone] Wild Stone DO [address], [facility] [place] [address] documented as of this encounter Procedures Procedure Name Priority Date/Time Associated Diagnosis Comments MULTIPLE LABS Routine 12/21/2022 documented in this encounter Results * Multiple labs (12/21/2022) us Scanning Provider External CT IMAGING Final Result MANUALLY TRANSCRIBED RESULTS documented in this encounter Visit Diagnoses Not on filedocumented in this encounter Care Teams C Iron Worker Relationship Specialty Start Date End Date Wild Stone DO [address], [place] [address] PCP - General Family Medicine 11/30/17 documented as of this encounter
--- OUTSIDE RECORDS SUMMARY | 2025-08-20 07:23 | XMS_ITS | Encounter Summary ---
Author Organization [employer] Address [id number] [address] [place] [address] Care Team Providers Care Bookkeeper Receptionist Name Role Phone ChaseWild Jailene VIRAMONTES Primary Care Provider [phone] Encounter Details Date Type Department Care Team (Late st Contact Info) Description 08/07/2025 Refill [facility] - Family Medicine [address] [facility] [address] Tressa Campbell CMA 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 ([facility]) Social History Tobacco Use Types Packs/Day Years [...] often do you attend chur ch or adventist services? Never 03/10/2023 Do you belong to any clubs o r organizations such as confucianist groups, unions, fraternal or athletic groups, or [...] Date Recorded Total Score 0 07/17/2025 [facility] Occup[facility] ional Health - Occupational [...] Recorded Do you need help finding a [facility] career [facility] and/or a training program? No [...] Internal Medicine - Family Medicine [address] [place] [address] Wild Stone DO [address] [facility] [place] [address] documented as of this encounter Visit Diagnoses Diagnosis 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 ([facility]) documented in this encounter Additional Health Concerns Assessment Noted Time PHQ-9 Depression Total Score: 0 07/17/20 25 8:54 AM EDT A Body Mass Index follow-up plan has been documented for the patient 05/14/2025 3:54 PM EDT documented as of this encounter Care Teams Bookkeeper Receptionist Relationship Specialty Start Date End Date Wild Stone DO [address] [place] [address] PCP - General Family Medicine 11/30/17 documented as of this encounter
--- OUTSIDE RECORDS SUMMARY | 2025-08-20 07:23 | XMS_ITS | Clinical Summary ---
Author Organization [facility] Address [address] [facility] [place] [address] Care Team Providers Care Deputy Sheriff Bailiff Name Role Phone Unallocated, Sincere Provider Primary Care [facility] Family History Medical History Relation Name Comments Cancer Father Heart disease Father Cancer Maternal Grandmother Stroke Mother Relation Name Status Comments Father Maternal Grandmother Mother Social History Tobacco Use Types Packs/Day Years Used Date Smoking Tobacco: Never Smokeless Tobacco: Never Tobacco Cessation:Counseling Given: Not Answered Alcohol Use Standard Drinks/Week Comments Not Currently 0 (1 standard drink = 0.6 oz pur e alcohol) Caffeine: 1-2 cups/day Comments Unknown Sex and Gender Information Value Date Recorded Sex Assigned at Not on file Legal Sex Female 10:07 AM EST Gender Identity Not on file Sexual Orientation Not on file Last Filed Vital Signs Vital Sign Reading Time Taken Comments Blood Pressure 149/77 09/16/2020 12:00 PM EST Pulse - - Temperature - - Respiratory Rate - - Oxygen Saturation - - Inhaled Oxygen Concentration - - Weight 93 kg (205 lb) 09/16/2020 12:00 PM EST Height 154.9 cm (5' 1 ) 09/16/2020 12:00 PM EST Body Mass Index 38.73 09/16/2020 12:00 PM EST Plan of Treatment Health Maintenance Due Date Last Done Comments CT Colonography 1950 Colonoscopy 1950 Diabetes: Hemoglobin A1C 1950 FIT 1950 FOBT 1950 Sigmoidoscopy 1950 Diabetes: Retinopathy Screening 1960 Medicare Annual Wellness (AWV) 03/10/2024 03/10/2023 Diabetes: Urine Protein Screening 03/14/2024 023 Influenza Vaccine (#1) 2025 3, 10/08/2022, 10/12/2020, Additional history exists Colorectal Cancer Screening 03/25/2026 FIT-DNA 03/25/2026 03/25/2023, 11/10/2018 Pneumococcal Vaccine: 65+ Years Completed 7, 08/05/2016 Mammogram Discontinued 05/13/2023, 04/08, 04/24/2021, Additional history exists Insurance MEDICARE [employer]ICKET Care Teams Deputy Sheriff Bailiff Relationship Specialty Start Date End Date Unallocated, Noms Provider, [address] [place] [address] PCP - General Family Medicine 12/06/23
--- OUTSIDE RECORDS SUMMARY | 2025-08-20 07:23 | XMS_ITS | Encounter Summary ---
Author Organization [employer] tem Address [facility]-[id number] [address] [place] [address] Care Team Providers Care Cork Grinder Name Role Phone Wild Stone DO Primary Care Provider [phone] Reason for Visit * Reason Comments Med Refill Encounter Details Date Type Department Care Team (Late Contact Info) Description 01/08/2023 Refill [facility] - Family Medicine [address] [place] [address] Wild Stone DO [address] [facility], [place] [address] Social History Tobacco Use Types Packs/Day Years [...] Medicine - Family Medicine [address] [place] [address] Wlid Stone DO [address], [place] [address] documented as of this encounter Visit Diagnoses Not on filedocumented in this encounter Care Teams Cork Grinder Relationship Specialty Start Date End Date Wild Stone DO [address] [facility], [address] [place], [place] [address] PCP - General Family Medicine 11/30/17 documented as of this encounter
--- OUTSIDE RECORDS SUMMARY | 2025-08-20 07:23 | XMS_ITS | Encounter Summary ---
Author Organization [facility] Sys tem Address [id number] [address] [place] [address] Care Team Providers Care Lacrosse Coach Name Role Phone DavidWild recinos Jailene VIRAMONTES Primary Care Provider Encounter Details Date Type Department Care Team (Late st Contact Info) Description 07/30/2025 Orders Only [facility] - Family Medicine [address] [place] [address] Ref Prov, [place] [address] Social History Tobacco Use Types Packs/Day Years [...] often do you attend chur ch or amish services? Never 03/10/2023 Do you belong to any clubs o r organizations such as hindu groups, unions, fraternal or athletic groups, or [...] Answer Date Recorded Total Score 0 07/17/2025 [facility] - Occupational Stress Questionnaire Answer Date [...] Recorded Do you need help finding a [facility] career center and/or a training [...] Medicine - Family Medicine [address] [place] [address] Wild Stone DO [address], [place] [address] documented as of this encounter Procedures Procedure Name Priority Date/Time Associated Diagnosis Comments XR KNEE LT 3 VWS Routine 07/20/2025 9:13 AM EDT MULTIPLE LABS Routine 07/16/2025 9:54 AM EDT documented in this encounter Results * X-ray knee left 3 views (07/20/2025 9:13 AM EDT) Anatomical Region Laterality Modality Lower Extremities, MSK, Knee Left Com puted Radiography us Not In System Ref Prov IMG DIAGNOSTIC IMAGING OR DERABLES Final Result * Multiple labs (07/16/2025 9:54 AM EDT) us Not In System Ref Prov AL IMAGING Final Res ult MANUALLY TRANSCRIBED RESULTS documented in this encounter Visit Diagnoses Not on filedocumented in this encounter Additional Health Concerns Assessment Noted Time PHQ-9 Depression Total Score: 0 07/17/20 25 8:54 AM EDT A Body Mass Index follow-up plan has been documented for the patient 05/14/2025 3:54 PM EDT documented as of this encounter Care Teams Lacrosse Coach Relationship Specialty Start Date End Date Wild Stone DO [address], [place] [address] PCP - General Family Medicine 11/30/17 documented as of this encounter
--- OUTSIDE RECORDS SUMMARY | 2025-08-20 07:23 | XMS_ITS | Encounter Summary ---
Author Organization [facility] [employer] [facility] tem Address [facility][id number] [address] [place] [address] Care Team Providers Care Nurse Orthopedic Name Role Phone Wild Stone DO Primary Care Provider [phone] Encounter Details Date Type Department Care Team (Late st Contact Info) Description 09/13/2023 Telephone [facility] Medicine - Family Medicine [address] [place] [address] Wild Stone DO [address], [place] [address] Social History Tobacco Use Types Packs/Day Years [...] any clubs o r organizations such as adventism groups, unions, fraternal or athletic groups, or [...] Answer Date Recorded Total Score 0 09/12/2023 [facility] of Occupat ional Health - Occupational [...] Recorded Do you need help finding a [facility] career center and/or a training program? No [...] encounter Miscellaneous Notes * Telephone Encounter - Leslie Lawton - 09/13/2023 9:59 AM EST Patient called and asked if you wwould be able tp orders bed rail for the side of her bed and toilet bars since she is having knee surgery. Sent to a local medical service company * Telephone Encounter - Wild Stone DO - 09/13/2023 9:59 AM EST Medicare does not typically cover those items for the home following a knee replacement. I have never done that before. If she wanted it she can purchase them. Maybe Ortho knows more about that than I do * Telephone Encounter - Leslie Lawton - 09/13/2023 9:59 AM EST Notiofied documented in this encounter Plan of Treatment Upcoming Encounters Date Type Department Care Team (Late st Contact Info) Description 10/16/2025 8:30 AM EST Office Visit [facility] - Family Medicine [address] [place] [address] Wild Stone DO [address] [facility] [place] [address] documented as of this encounter Visit Diagnoses Not on filedocumented in this encounter Additional Health Concerns Assessment Noted Time PHQ-9 Depression Total Score: 0 09/12/20 23 1:46 PM EST documented as of this encounter Care Teams Nurse Orthopedic Relationship Specialty Start Date End Date Wild Stone DO [address] [facility], [facility] [place] [address] PCP - General Family Medicine 11/30/17 documented as of this encounter
--- OUTSIDE RECORDS SUMMARY | 2025-08-20 07:24 | XMS_ITS | Encounter Summary ---
Author Organization [facility] tem Address [facility] [id number] [address] [place] [address] Care Team Providers Care Hand Shoe Cutter Name Role Phone DavidWild recinos Jailene VIRAMONTES Primary Care Provider [phone] Encounter Details Date Type Department Care Team (Late st Contact Info) Description 03/14/2025 Orders Only [facility] - Family Medicine [address] [place] [address] Ref Prov, [place] [address] Social History Tobacco Use Types Packs/Day Years [...] often do you attend chur ch or evangelical services? Never 03/10/2023 Do you belong to any clubs o r organizations such as mormonism groups, unions, fraternal or athletic groups, or [...] PHQ-2 Answer Date Recorded Total Score 0 08/16/2024 [facility]at [facility] Health - Occupational Stress Questionnaire Answer Date [...] Recorded Do you need help finding a [place] [employer] career center and/or a training program? No 03/10/2023 Hunger Screening Answer Date Recorded Within the past 12 months we worried whether our food would run out before we got money to buy more. Never True 08/16/2024 Within the past 12 months th e food we bought just didn't last and we didn't have money to get more. Never True 08/16/2024 Purpose - Life Answer Date Recorded Purpose [...] - Family Medicine [address] [place] [address] Wild Stone DO [address], [place] [address] documented as of this encounter Procedures Procedure Name Priority Date/Time Associated Diagnosis Comments XR CHEST 2 VWS Routine 02/19/2025 4:33 PM EDT documented in this encounter Results * X-ray chest 2 views (02/19/2025 4:33 PM EDT) Anatomical Region Laterality Modality Body, Chest N/A Computed Radiogr aphy us Not In System Ref Prov IMG DIAGNOSTIC IMAGING OR DERABLES Final Result documented in this encounter Visit Diagnoses Not on filedocumented in this encounter Additional Health Concerns Assessment Noted Time PHQ-9 Depression Total Score: 0 08/16/20 24 3:14 PM EDT A Body Mass Index follow-up plan has been documented for the patient 08/20/2024 12:52 PM EDT documented as of this encounter Care Teams Hand Shoe Cutter Relationship Specialty Start Date End Date Wild Stone DO [address], [facility] [place] [address] PCP - General Family Medicine 11/30/17 documented as of this encounter
--- OUTSIDE RECORDS SUMMARY | 2025-08-20 07:24 | XMS_ITS | Clinical Summary ---
Author Organization [facility] Address [address] [place] [address] Phone Care Team Providers Care Power House Engineer Name Role Phone Wild Stone DO Primary Care Provider Social History Tobacco Use Types Packs/Day Years Used Date Smoking Tobacco: Never Assessed Comments Unknown Sex and Gender Information Value Date Recorded Sex Assigned at Not on file Legal Sex Female 8:41 PM EST Gender Identity Not on file Sexual Orientation Not on file Last Filed Vital Signs Vital Sign Reading Time Taken Comments Blood Pressure 124/57 11/28/2020 9:26 AM EST Pulse 65 11/28/2020 9:26 AM EST Temperature 36.4 C (97.5 F) 11/28/2020 9:26 AM EST Respiratory Rate 16 11/28/2020 9:26 AM EST Oxygen Saturation - - Inhaled Oxygen Concentration - - Weight 94.2 kg (207 lb 10.8 oz) 11/28/2020 7:55 AM EST Height 152.4 cm (5') 11/28/2020 7:55 AM EST Body Mass Index 40.56 11/28/2020 7:55 AM EST Plan of Treatment Not on file Care Teams Power House Engineer Relationship Specialty Start Date End Date Wild Stone DO PCP - General 11/07/20
--- OUTSIDE RECORDS SUMMARY | 2025-08-20 07:24 | XMS_ITS | Patient Health Record ---
Author Organization [facility] Address [address] [place] [address] Care Team Providers Care Brake Adjuster Name Role Phone Aly Higgins [phone] Results Component Value Reference Range Notes PEH Knee Left [id number] Reviewed date:10/18/2024 02:45:04 PM Interpretation: Performing Lab: Notes/Report: Reason For Referral No Information Medications Medication SIG (Take, Route, Fr equency, Duration) Notes Start Date End Date Status amLODIPine Unknown furosemide Unknown spironolactone Unkno wn carvedilol Unknown Magnesium Unknown lisinopril Unknown metFORMIN Unknown aspirin Unknown Novolin Unknown Mobic 15 mg 1 tab(s) orally once a day for 45 days 04/14/2022 Unknown Vision Supplement Un known rosuvastatin Unknown Social History Tobacco Use: Social History Observation Description Date Details (start date - stop date) Never Smoker NA - NA Smoking History Question Answer Notes Smoking Status NonSmoker Problems Problem Type SNOMED Code ICD Code Onset Dates Problem Status W/U Status Risk Notes Problem 237774692 Aftercare following joint replacement surgery (Z47.1) Active confirmed Problem 526744465508830 Left wrist pain (M25.532) Active confirmed Problem Osteoarthritis of knee (840109390) Primary osteoarthritis of left knee (M17.12) Active confirmed Problem 368678492217 Presence of left artificial knee joint (Z96.652) Active confirmed Problem 577621182 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) Active confirmed Problem Dehiscence of surgical wound (68772096) Dehiscence of operative wound, initial encounter (T81.31XA) Active confirmed Problem 154127899 Preoperative testing (Z01.818) Active confirmed Problem 51687689 Dehiscence of operative wound, subsequent encounter (T81.31XD) Active confirmed Problem 470157211 Traumatic wound dehiscence, initial encounter (T81.33XA) Active confirmed Encounters Encounter Location Date Provider Diagnosis [facility] [address] [place] [address] 10/02/2024 Aly Higgins Aftercare following joint replacement surgery Z47.1 and Presence of left artificial knee joint Z96.652 Assessments Encounter Date Diagnosis (ICD Code) Assessment Notes Treatment Notes Treatment Clinical Notes Section Notes 10/02/2024 Aftercare following joint replacement surgery (ICD-10 - Z47.1) left total knee replacement 10/02/2024 Presence of left artificial knee joint (ICD-10 - Z96.652) left total knee replacement 10/02/2024 Other patient is going to continue activities as tolerated. left total knee replacement Plan Of Treatment Pending Test Test Name Order Date PEH Knee, Left [id number] -[id number] 07/05/2023 PE[facility] Knee Left [id number] 11/09/2023 PENDING SALE TO [facility] TOTAL - PREOP- CBC WITH DIFF, BMP, TYPE AND SCREEN, MRSA BY PCR BILATERAL NARES, EKG, TOTAL JOINT [facility], PT / OT EVALUATION , 08/24/2023 Insurance Providers Payer Name Payer Address Payer Phone Subscriber Number Group Number Insured Name Patient Relationship to Insured Coverage Start Date Coverage End Date Medicare [address] [phone] [id number] TANIYA MCNEAL Self - patient is the insured Medical [facility] [address] [place] [address] [id number] TANIYA MCNEAL Self - patient is the insured Medications Administered Medication Instructions Date of Administration Dosage Notes Gel One 04/08/2021 3.0 mL Gel One 06/16/2022 3.0 mL Gel One 03/21/2023 3.0 mL Medical (General) History Medical History History ICD Code Cancer Type Yes-skin Diabetes: Yes-TYPE 2 High Blood Pressure: Yes Surgical History Surgery Date(Month/Year) I&D of left knee with secondary closure of wound dehisence 11/2023 lymphnodes skin cancer trigger finger cataract tonsils Left eye surgery 04/19 Left arthroscopic rotator cu ff repair with open biceps tenodesis and extensive debridement 12/2018 Broken arm 1981 Tubal Ligation Carpal tunnel 1979 Tail bone cyst 1968
--- OUTSIDE RECORDS SUMMARY | 2025-08-20 07:24 | XMS_ITS | Encounter Summary ---
Author Organization [facility] Address [id number] [address] [place] [address] Care Team Providers Care Scuba Diving Teacher Name Role Phone Wild Stone DO Primary Care Provider [phone] Reason for Visit * Reason Comments Med Refill Encounter Details Date Type Department Care Team (Late Contact Info) Description 12/14/2022 Refill [facility] Internal [facility] - Family Medicine [address] [place] [address] Wild Stone DO [address] [facility], [place] [address] Social History Tobacco Use Types Packs/Day Years [...] Upcoming Encounters Date Type Department Care Team ([facility] Contact Info) Description 10/16/2025 8:30 AM EST Office Visit [facility] - Family Medicine [address] [place] [address] Wild Stone DO [address], [place] [address] documented as of this encounter Visit Diagnoses Not on filedocumented in this encounter Care Teams Scuba Diving Teacher Relationship Specialty Start Date End Date Wild Stone DO [address] [facility], [address] [place], [place] [id number] PCP - General Family Medicine 11/30/17 documented as of this encounter
--- OUTSIDE RECORDS SUMMARY | 2025-08-20 07:24 | XMS_ITS | Encounter Summary ---
Author Organization [facility] tem Address [id number] [address] [place] [address] Care Team Providers Care Side Door Worker Name Role Phone DavidWild recinos Jailene VIRAMONTES Primary Care Provider Encounter Details Date Type Department Care Team (Late st Contact Info) Description 07/17/2025 Orders Only [facility] - Family Medicine [address] [place] [address] Ref Prov, [place] [address] Social History Tobacco Use Types Packs/Day Years [...] Answer Date Recorded Total Score 0 07/17/2025 [facility] of [facility] Health - Occupational Stress Questionnaire Answer Date [...] Recorded Do you need help finding a [facility] career center and/or a training program? [...] Medicine - Family Medicine [address] [place] [address] Wild Stone DO [address], [place] [address] documented as of this encounter Procedures Procedure Name Priority Date/Time Associated Diagnosis Comments EXTERNAL OIL FIELD CASER, STARR SYS Routine 07/17/2025 3:06 PM EDT documented in this encounter Results * EXTERNAL OIL FIELD CASER, STARR SYS (07/17/2025 3:06 PM EDT) us Not In System Ref Prov ID MISCELLANEOUS SERVICES Final Result MANUALLY TRANSCRIBED RESULTS documented in this encounter Visit Diagnoses Not on filedocumented in this encounter Additional Health Concerns Assessment Noted Time PHQ-9 Depression Total Score: 0 07/17/20 25 8:54 AM EDT A Body Mass Index follow-up plan has been documented for the patient 05/14/2025 3:54 PM EDT documented as of this encounter Care Teams Side Door Worker Relationship Specialty Start Date End Date Wild Stone DO [address], [place] [address] PCP - General Family Medicine 11/30/17 documented as of this encounter
--- OUTSIDE RECORDS SUMMARY | 2025-08-20 07:24 | XMS_ITS | Encounter Summary ---
Author Organization [facility] s tem Address [id number] [address] [place] [address] Care Team Providers Care Clinical Law Professor Name Role Phone Wild Stone DO Primary Care Provider [phone] Encounter Details Date Type Department Care Team (Late Contact Info) Description 08/25/2022 Orders Only [facility] - Family Medicine [address] [place] [address] Rose Vásquez MA Diarrhea, unspecified type Social History Tobacco Use Types Packs/Day Years Used Date Smoking Tobacco: Never Assessed Childcare Answer Date Recorded Childcare Unknown 04/09/2019 Employment Answer Date Recorded Employment Unknown 04/09/2019 Purpose - Life Answer Date Recorded Purpose and direction in life Unknown Comments No Sex and Gender Information Value Date Recorded Sex Assigned at Not on file Legal Sex Female 11:42 AM EDT Gender Identity Not on file Sexual Orientation Not on file COVID-19 Exposure Response Date Recorded In the last month, have you been in contact with someone who was confirmed or suspected to have Coronavirus / COVID-19? No / Unsure 08/10/2022 1:50 PM EDT documented as of this encounter Plan of Treatment Upcoming Encounters Date Type Department Care Team (Late Contact Info) Description 10/16/2025 8:30 AM EST Office Visit [facility] - Family Medicine [address] [place] [address] Wild Stone DO [address] [place] [address] documented as of this encounter Procedures Procedure Name Priority Date/Time Associated Diagnosis Comments GI PANEL STOOL PATHOGEN PANEL Routine 08/11/2022 Diarrhea, unspecified type documented in this encounter Results * GI Panel(stool pathogen panel) (08/11/2022) 08/11/2022 us Wild Stnoe DO BODY FLUIDS AND STOOLS ORDER SEFERINO Final Result [facility] documented in this encounter Visit Diagnoses Diagnosis Diarrhea, unspecified type documented in this encounter Care Teams Clinical Law Professor Relationship Specialty Start Date End Date Wild Stone DO [address], [place] [address] PCP - General Family Medicine 11/30/17 documented as of this encounter
--- OUTSIDE RECORDS SUMMARY | 2025-08-20 07:24 | XMS_ITS | Encounter Summary ---
Author Organization [employer] [facility] Address [id number] [address] [place] [address] Care Team Providers Care Television Cameraman Name Role Phone Chase Wild Jailene VIRAMONTES Primary Care Provider [phone] Encounter Details Date Type Department Care Team (Late st Contact Info) Description 05/09/2025 Telephone [facility] - Family Medicine [address] [place] [address] Tressa Campbell CMA Social History Tobacco Use Types Packs/Day [...] often do you attend chur ch or alevism services? Never 03/10/2023 Do you belong to any clubs o r organizations such as pentecostal groups, unions, fraternal [...] PHQ-2 Answer Date Recorded Total Score 0 05/03/2025 [facility] Occup[facility] ional Health - Occupational [...] Recorded Do you need help finding a [facility] and/or a training program? No 03/10/2023 Hunger Screening Answer Date Recorded Within the past 12 months we worried whether our food would run out before we got money to buy more. Never True 05/03/2025 Within the past 12 months th e food we bought just didn't last and we didn't have money to get more. Never True 05/03/2025 Purpose - Life Answer Date Recorded Purpose and direction in life Unknown Comments No Sex and Gender Information Value Date Recorded Sex Assigned at Not on file Legal Sex Female 11:42 AM EDT Gender Identity Not on file Sexual Orientation Not on file documented as of this encounter Miscellaneous Notes * Telephone Encounter - Tressa Campbell CMA - 05/09/2025 9:35 AM EDT Spoke to pt and informed her that her results were negative for a DVT of the left lower extremity. Pt understood. documented in this encounter Plan of Treatment Upcoming Encounters Date Type Department Care Team (Late st Contact Info) Description 10/16/2025 8:30 AM EST Office Visit [facility] - Family Medicine [address] [place] [address] Wild Stone DO [address] [facility] [place] [address] documented as of this encounter Visit Diagnoses Not on filedocumented in this encounter Additional Health Concerns Assessment Noted Time PHQ-9 Depression Total Score: 0 05/03/20 25 9:20 AM EDT A Body Mass Index follow-up plan has been documented for the patient 05/03/2025 10:38 AM EDT documented as of this encounter Care Teams Television Cameraman Relationship Specialty Start Date End Date Wild Stone DO [address] [facility] [place] [address] PCP - General Family Medicine 11/30/17 documented as of this encounter
--- OUTSIDE RECORDS SUMMARY | 2025-08-20 07:24 | XMS_ITS | Encounter Summary ---
Author Organization [facility] Address [address] [place] [address] Care Team Providers Care Cat Operator Name Role Phone Unallocated, [facility] Provider Primary Care [facility] Encounter Details Date Type Department Care Team (Late st Contact Info) Description 12/13/2023 External Result Encounter [facility] External Department Unsolicited Farhana Sotomayor, ENVIRONMENT COORDINATOR [address] [place] [address] Social History Tobacco Use Types Packs/Day Years [...] Name Priority Date/Time Associated Diagnosis Comments US LOWER EXTREMITY NON-VASC RIGHT 12/13/2023 2:02 PM EST documented in this encounter Results * US LOWER EXTREMITY NON-VASC RIGHT (12/13/2023 2:02 PM EST) Anatomical Region Laterality Modality Right Ultrasound 12/13/2023 2:02 PM EST Impressions 12/13/2023 2:08 PM EST IMPRESSION: Multiple reniform hypoechoic and centrally echogenic lymph nodes are redemonstrated. These are consistent with lymph nodes and are similar to that seen on the prior exam. These have subjectively normal cortical morphology with the largest measuring 1.0 x 1.3 x 0.8 cm in greatest dimension. Impression dictated by: Francesco Boggs M.D.12/13/2023 2:06 PM Dictation Location: [place] [address] Tech: [facility] Transcribed By: SRUTHI 12/13/23 1406 Dictated By: Francesco Boggs II, MD 12/13/23 1402 Signed By: <Electronically signed by Francesco Boggs II, MD in OV> 12/13/23 1406 Narrative 12/13/2023 2:08 [place] [address] Ultrasound Report Signed Patient: Tosha Macias MR#: [id number] : 1950 Acct:[id number] Age/Sex: 73 / F ADM Date: 12/13/23 Loc: Room: Type: [facility] Attending Dr: Rose Ohara MD Ordering [...] no evidence of mass. US/US extremity nonvascular Procedure Note Radiology, Radiologist, - 12/13/2023 [place] [id number] Ultrasound Report Signed Patient: Tosha Macias KMR#: [id number] : 1950Acct:[id number] Age/Sex: 73 / FADM Date: 12/13/23 Loc: XT Room:Type: [facility] RCR Attending Dr: Rose Ohara MD Ordering Provider: Farhana Sotomayor APRN Date of Service: 12/13/23 US/US extremity nonvascular: surveillancemelanoma Copies to: MD Farhana Gutierrez APRN US extremity nonvascular 12/13/2023 9:05 AM SIGNS AND SYMPTOMS: surveillance melanoma, Right Axilla ALSO FOR LAB ANDCT PROTOCOL: Grayscale and color Doppler sonographic images of the rightaxilla were obtained. COMPARISON: 12/13/2023 CT and ultrasound 08/09/2023 FINDINGS: Multiple reniform hypoechoic and centrally echogenic lymph nodes areredemonstrated. These have subjectively normal cortical morphology with the largest measuring 1.0 x1.3 x 0.8 cm in greatest dimension. There is no evidence of mass. US/US extremity nonvascular IMPRESSION: IMPRESSION: Multiple reniform hypoechoic and centrally echogenic lymph nodes areredemonstrated. These are consistent with lymph nodes and are similar to that seen on the priorexam. These have subjectively normal cortical morphology with the largest measuring 1.0 x 1.3 x 0.8 cmin greatest dimension. Impression dictated by: Francesco Boggs M.D.12/13/2023 2:06 PM Dictation Location: [place] [address] Tech: [facility] Transcribed By: SRUTHI 12/13/23 1406 Dictated By: Francesco Boggs II, MD 12/13/23 1402 Signed By: <Electronically signed by Francesco Boggs II, MD inOV> 12/13/23 1406 us Farhana Sotomayor ENVIRONMENT COORDINATOR IMG US PROCEDURES Final Result documented in this encounter Visit Diagnoses Not on filedocumented in this encounter Care Teams Cat Operator Relationship Specialty Start Date End Date Unallocated, Noms Provider, [address] [place] [address] PCP - General Family Medicine 12/06/23 documented as of this encounter
--- OUTSIDE RECORDS SUMMARY | 2025-08-20 07:24 | XMS_ITS | Encounter Summary ---
Author Organization [employer] [facility] Address [facility][id number] [address] [place] [address] Care Team Providers Care Violin Tutor Name Role Phone Wild Stone Primary Care Provider [phone] Encounter Details Date Type Department Care Team (Late st Contact Info) Description 09/06/2022 Orders Only [facility] Internal [facility] - Family Medicine [address] [place] [phone] Rose Vásquez MA Type 2 diabetes mellitus with stage 2 chronic kidney disease, with long-term current use of insulin ([facility]); Mixed hyperlipidemia; Essential hypertension Social History Tobacco Use Types Packs/Day Years [...] have Coronavirus / COVID-19? No / Unsure 09/06/2022 8:19 AM EDT documented as of this encounter Plan of Treatment Upcoming Encounters Date Type Department Care Team (Late st Contact Info) Description 10/16/2025 8:30 AM EST [facility] [address] [place] [address] Wild Stone, DO [address] [facility] [place] [address] documented as of this encounter Procedures Procedure Name Priority Date/Time Associated Diagnosis Comments HEMOGLOBIN A1C Routine 08/26/2022 Type 2 diabetes mellitus with stage 2 chronic kidney disease, with long-term current use of insulin ([facility]) LIPID PROFILE Routine 08/26/2022 Mixed hyperlipidemia COMPREHENSIVE METABOLIC PANEL Routine 08/26/2022 Essential hypertension documented in this encounter Results * Comprehensive metabolic panel (08/26/2022) Blood 08/26/2022 Wild Stone DO LAB BLOOD ORDERABLES Final R Tarari Performing Organization Address [facility] de Phone Number [facility] * (ABNORMAL) Lipid panel (08/26/2022) External Cholesterol 99 <=200 [facility] External Cholesterol:Hdl 2.2 [facility] External Hdl Cholesterol 45 40 - 60 [facility] External Ldl (Calc) 22.6 [facility] External Triglycerides 157(A) <=150 [facility] External Very Low Lipoprotein 31.4 [facility] Blood 08/26/2022 Wild Stone DO LAB BLOOD ORDERABLES Final R esult Performing Organization Address City/[facility]/ZIP Co de Phone Number [facility] * (ABNORMAL) Hemoglobin A1c (08/26/2022) External Hemoglobin A1C 7.5(A) 4.5 - 6.2 % [facility] Blood 08/26/2022 Wild Stone DO LAB BLOOD ORDERABLES Final R Tarari [facility] documented in this encounter Visit Diagnoses Diagnosis Type 2 diabetes mellitus with stage 2 chronic kidney disease, with long-term current use of insulin ([facility]) Mixed hyperlipidemia Essential hypertension Unspecified essential hypertension documented in this encounter Care Teams Violin Tutor Relationship Specialty Start Date End Date Wild Stone DO [address], [place] [address] PCP - General Family Medicine 11/30/17 documented as of this encounter
--- OUTSIDE RECORDS SUMMARY | 2025-08-20 07:24 | XMS_ITS | Encounter Summary ---
Author Organization [facility] Sys tem Address [facility] [id number] [address] [place] [address] Care Team Providers Care Size Stamper Name Role Phone ChaseWild Jailene VIRAMONTES Primary Care Provider Encounter Details Date Type Department Care Team (Late st Contact Info) Description 09/05/2024 Orders Only [facility] Internal Medicine - Family Medicine [address] [place] [address] Ref Prov, [place] [address] Social History Tobacco Use Types Packs/Day Years [...] often do you attend chur ch or voodoo services? Never 03/10/2023 Do you belong to any clubs o r organizations such as anabaptist groups, unions, fraternal or athletic groups, or [...] Answer Date Recorded Total Score 0 08/16/2024 [facility]at [facility] Health - Occupational Stress Questionnaire Answer Date [...] Recorded Do you need help finding a [facility] career center and/or a training program? [...] Medicine - Family Medicine [address] [place] [address] Wild Stone DO [address], [place] [address] documented as of this encounter Procedures Procedure Name Priority Date/Time Associated Diagnosis Comments DIABETES EYE EXAM Routine 09/04/2024 9:51 AM EDT documented in this encounter Results * DIABETES EYE EXAM (09/04/2024 9:51 AM EDT) us Not In System Ref Prov HEALTH MAINTENANCE Final Result MANUALLY TRANSCRIBED RESULTS documented in this encounter Visit Diagnoses Not on filedocumented in this encounter Additional Health Concerns Assessment Noted Time PHQ-9 Depression Total Score: 0 08/16/20 3:14 PM EDT A Body Mass Index follow-up plan has been documented for the patient 08/20/2024 12:52 PM EDT documented as of this encounter Care Teams Size Stamper Relationship Specialty Start Date End Date Wild Stone DO [address], [place] [address] PCP - General Family Medicine 11/30/17 documented as of this encounter
--- OUTSIDE RECORDS SUMMARY | 2025-08-20 07:24 | XMS_ITS | Encounter Summary ---
Author Organization [facility] Sys tem Address [facility] [id number] [address] [place] [address] Care Team Providers Care Incident Manager Name Role Phone ChaseWild Jailene VIRAMONTES Primary Care Provider +[phone] Encounter Details Date Type Department Care Team (Late st Contact Info) Description 03/09/2023 Orders Only [facility] Internal Medicine - Family Medicine [address] [place] [address] External, Scanning Provider Social History Tobacco Use [...] How often do you attend chur or sikhism services? Never 03/10/2023 Do you belong to any clubs o r organizations such as congregation groups, unions, fraternal or athletic groups, or [...] PHQ-2 Answer Date Recorded Total Score 0 03/10/2023 [facility] of Occupat ional Health - Occupational Stress [...] Recorded Do you need help finding a [employer] career center and/or a training program? No 03/10/2023 Purpose - Life Answer Date Recorded Purpose and direction in life Unknown Comments No Sex and Gender Information Value Date Recorded Sex Assigned at Not on file Legal Sex Female 11:42 AM EDT Gender Identity Not on file Sexual Orientation Not on file documented as of this encounter Functional Status * Audit-C Score Answer Date of Assessment Author 0 03/10/2023 12:25 PM EDT Hansa Stone * Question Answer Date of Assessment Author Q1: How often do you have a drink containing alcohol? Never 03/10/2023 12:25 PM EDT Elvie Stone Q2: How many drinks containing alcohol do you have on a typical day when you are drinking? Patient does not drink 03/10/2023 12:25 PM EDT Hansa Stone Q3: How often do you have six or more drinks on one occasion? Never 03/10/2023 12:25 PM EDT Elvie Stone documented as of this encounter Plan of Treatment Upcoming Encounters Date Type Department Care Team (Late st Contact Info) Description 10/16/2025 8:30 AM EST Office Visit [facility] - Family Medicine [address] [place] [address] Wild Stone DO [address] [place], [facility] [place] [address] documented as of this encounter Procedures Procedure Name Priority Date/Time Associated Diagnosis Comments HM MAMMOGRAPHY Routine 04/26/2022 HEPATITIS C(HCV) ANTIBODY W/ REFLEX TO PCR Routine 08/08/2016 documented in this encounter Results * HM MAMMOGRAPHY (04/26/2022) Anatomical Region Laterality Modality Other us Scanning Provider External HEALTH MAINTENANCE Fi nal Result * Hepatitis C(HCV) Ab w/ Reflex to PCR (08/08/2016) us Wild Stone DO LAB BLOOD ORDERABLES Final R esult MANUALLY TRANSCRIBED LAB RESULTS documented in this encounter Visit Diagnoses Not on filedocumented in this encounter Additional Health Concerns Assessment Noted Time PHQ-9 Depression Total Score: 3 03/08/20 23 2:37 PM EDT documented as of this encounter Care Teams Incident Manager Relationship Specialty Start Date End Date Wild Stone DO [address] [place], [place] [address] PCP - General Family Medicine 11/30/17 documented as of this encounter
--- OUTSIDE RECORDS SUMMARY | 2025-08-20 07:24 | XMS_ITS | Encounter Summary ---
Author Organization [facility] Sys tem Address [facility] [id number] [address] [place] [address] Care Team Providers Care Supervisor Securities Vault Name Role Phone DavidWild recinos Jailene VIRAMONTES Primary Care Provider [phone] Encounter Details Date Type Department Care Team (Late st Contact Info) Description 04/10/2025 Orders Only [facility] Medicine - Family Medicine [address] [place] [address] Ref Prov, [place] [address] Social History Tobacco Use Types Packs/Day Years [...] often do you attend chur ch or orthodox services? Never 03/10/2023 Do you belong to any clubs o r organizations such as roman catholic groups, unions, fraternal or athletic groups, or [...] PHQ-2 Answer Date Recorded Total Score 0 03/21/2025 [facility] of Occupat [facility] Health - Occupational Stress Questionnaire Answer Date [...] Recorded Do you need help finding a [facility] career center and/or a training program? No 03/10/2023 Hunger Screening Answer Date Recorded Within the past 12 months we worried whether our food would run out before we got money to buy more. Never True 03/21/2025 Within the past 12 months th e food we bought just didn't last and we didn't have money to get more. Never True 03/21/2025 Purpose - Life Answer Date Recorded Purpose [...] Medicine - Family Medicine [address] [place] [address] Wild Stone DO [address], [place] [address] documented as of this encounter Procedures Procedure Name Priority Date/Time Associated Diagnosis Comments EXTERNAL SUPERVISOR LATHING, STARR SYS Routine 03/21/2025 12:56 PM EDT documented in this encounter Results * EXTERNAL SUPERVISOR LATHING, STARR SYS (03/21/2025 12:56 PM EDT) us Not In System Ref Prov CT MISCELLANEOUS SERVICES Final Result MANUALLY TRANSCRIBED RESULTS documented in this encounter Visit Diagnoses Not on filedocumented in this encounter Additional Health Concerns Assessment Noted Time PHQ-9 Depression Total Score: 0 03/21/20 25 10:55 AM EDT A Body Mass Index follow-up plan has been documented for the patient 08/20/2024 12:52 PM EDT documented as of this encounter Care Teams Supervisor Securities Vault Relationship Specialty Start Date End Date Wild Stone DO [address], [place] [address] PCP - General Family Medicine 11/30/17 documented as of this encounter
--- OUTSIDE RECORDS SUMMARY | 2025-08-20 07:24 | XMS_ITS | Encounter Summary ---
Author Organization [facility] Sys tem Address [facility] [place][id number] [address] [place] [address] Care Team Providers Care Liaison Engineer Name Role Phone DavidWild recinos Jailene VIRAMONTES Primary Care Provider Encounter Details Date Type Department Care Team (Late st Contact Info) Description 03/22/2025 Orders Only [facility] - Family Medicine [address] [place] [address] Ref Prov, [place] [address] Social History Tobacco Use Types Packs/Day Years [...] often do you attend chur ch or confucianist services? Never 03/10/2023 Do you belong to any clubs o r organizations such as shinto groups, unions, fraternal [...] Answer Date Recorded Total Score 0 03/21/2025 [facility] of Occupat [facility] Health - Occupational Stress Questionnaire Answer [...] Medicine - Family Medicine [address] [place] [address] Wild Stone DO [address], [place] [address] documented as of this encounter Procedures Procedure Name Priority Date/Time Associated Diagnosis Comments US GUIDED AMB BIOPSY Routine 03/04/2025 7:25 AM EDT US ABDOMEN LMTD Routine 03/03/2025 7:23 AM EDT documented in this encounter Results * AMB Ultrasound Guided Biopsy (03/04/2025 7:25 AM EDT) Anatomical Region Laterality Modality AMB Ultrasound us Not In System Ref Prov AMB IMG ORDERABLES Final Result * Ultrasound abdomen limited (03/03/2025 7:23 AM EDT) Anatomical Region Laterality Modality Body, Abdomen Ultrasound us Not In System Ref Prov IMG US ORDERABLES Final R esult documented in this encounter Visit Diagnoses Not on filedocumented in this encounter Additional Health Concerns Assessment Noted Time PHQ-9 Depression Total Score: 0 03/21/20 25 10:55 AM EDT A Body Mass Index follow-up plan has been documented for the patient 08/20/2024 12:52 PM EDT documented as of this encounter Care Teams Liaison Engineer Relationship Specialty Start Date End Date Wild Stone DO [address], [place] [address] PCP - General Family Medicine 11/30/17 documented as of this encounter
--- OUTSIDE RECORDS SUMMARY | 2025-08-20 07:24 | XMS_ITS | Encounter Summary ---
Author Organization [facility] Address [address] [place] [address] Care Team Providers Care Dispatcher Motor Vehicle Name Role Phone Unallocated, Noms Provider Primary [facility] Encounter Details Date Type Department Care Team ([facility] st Contact Info) Description 08/09/2023 External Result Encounter [facility] External Department Unsolicited Rose Ohara MD [address] [place] [address] Social History Tobacco Use Types [...] Diagnosis Comments US LOWER EXTREMITY NON-VASC RIGHT 08/09/2023 1:33 PM EDT documented in this encounter Results * US LOWER EXTREMITY NON-VASC RIGHT (08/09/2023 1:33 PM EDT) Anatomical Region Laterality Modality Right Ultrasound 08/09/2023 1:33 PM EDT Impressions 09/23/2023 1:30 PM EST AXILLARY LYMPH NODES WITH BENIGN CONFIGURATION, DESCRIBED. Impression dictated by: Jenni Sands M.D.08/09/2023 1:36 PM Dictation Location: [place] [address] Tech: Miri Pastrana Transcribed By: SRUTHI 08/09/23 1336 Dictated By: Jenni Sands MD 08/09/23 133 Signed By: <Electronically signed by MD Jenni Sands in OV> 08/09/23 1336 Narrative 09/23/2023 1:30 PM [facility] Main [place] [id number] Ultrasound Report Signed Patient: Tosha Macias MR#: [id number] : 1950 Acct:[id number] Age/Sex: 72 / F ADM Date: 08/09/23 Loc: XT Room: Type: REG RCR Attending [...] pathologic adenopathy is noted. US/US extremity nonvascular Procedure Note Radiology, Radiologist, MD - 09/23/2023 [facility] Main [place] [id number] Ultrasound Report Signed Patient: Tosha Macias KMR#: [id number] : 1950Acct:[id number] Age/Sex: 72 / FADM Date: 08/09/23 Loc: XT Room:Type: REG RCR Attending Dr: Rose Ohara MD Ordering Provider: Rose Ohara MD Date of Service: 08/09/23 US/US extremity nonvascular: surveillancemelanoma Copies to: Rose Ohara MD LIMITED ULTRASOUND - right axilla CLINICAL DATA: Follow-up in patient with history of melanoma. COMPARISON: 04/07/2023 Real-time ultrasound evaluation of the right axilla was performed. Thereis a hypoechoic reniform nodule within thin cortex and echogenic hilus measuring 12 x 5 x 6 mm.This is similar There is an additional slightly larger lymph node with fatty hilus measuring 14 x 6 x12 mm. These measurements are smaller than the prior. No new pathologic adenopathy is noted. US/US extremity nonvascular IMPRESSION: AXILLARY LYMPH NODES WITH BENIGN CONFIGURATION, DESCRIBED. Impression dictated by: Jenni Sands M.D.08/09/2023 1:36 PM Dictation Location: [place] [address] Tech: [facility] Transcribed By: SRUTHI 08/09/23 1336 Dictated By: Jenni Sands MD 08/09/23 1333 Signed By: <Electronically signed by MD Jenni Sands in OV> 08/09/23 1336 us Rose Ohara MD IMG US PROCEDURES Final Result documented in this encounter Visit Diagnoses Not on filedocumented in this encounter Care Teams Dispatcher Motor Vehicle Relationship Specialty Start Date End Date Unallocated, Noms Provider, [address] [place] [address] PCP - General Family Medicine 12/06/23 documented as of this encounter
--- OUTSIDE RECORDS SUMMARY | 2025-08-20 07:24 | XMS_ITS | Encounter Summary ---
Author Organization [facility] Address [address] [place] [address] Care Team Providers Care Motel Keeper Name Role Phone Unallocated, Noms Provider Primary Care [facility] Encounter Details Date Type Department Care Team (Late st Contact Info) Description 12/13/2023 External Result Encounter [facility] External Department Unsolicited Farhana Sotomayor, JACK PRIZER [address] [place] [address] Social History Tobacco Use Types Packs/Day Years [...] Procedure Name Priority Date/Time Associated Diagnosis Comments CT ABDOMEN PELVIS W IV CONTRAST 12/13/2023 2:30 PM EST documented in this encounter Results * CT abdomen pelvis w IV contrast (12/13/2023 2:30 PM EST) Anatomical Region Laterality Modality Body, Pelvis, Abdomen Computed T omography 12/13/2023 2:30 PM EST Impressions 12/13/2023 2:41 PM EST No evidence of metastatic disease of the chest, abdomen or pelvis. PRELIMINARY RESULTS: None given Impression dictated by: Omid Echevarria M.D.12/13/2023 2:39 PM Dictation Location: [place] [address] Transcribed By: [facility] 12/13/23 1439 Dictated By: Omid Echevarria DO 12/13/23 1430 Signed By: <Electronically signed by Omid Echevarria DO in OV> 12/13/23 1439 Narrative 12/13/2023 2:41 PM [facility] Main [place] [address] [place] [address] CT Scan Report Signed Patient: Tosha Macias MR#: [id number] : 1950 Acct:[id number] Age/Sex: 73 / F ADM Date: 12/13/23 Loc: [facility]: [facility]: Rose Ohara MD Copies to: MD Farhana Gutierrez APRN Ordering Provider: Farhana Sotomayor APRN Date of Service: 12/13/23 CT/CT abdomen pelvis w con: surveillance melanoma ([id number]) CT/CT chest w con: surveillance melanoma CT [...] change. Mild scoliosis. CT/CT chest w con Procedure Note Radiology, Radiologist, - 12/13/2023 [facility] Main [place] [address] [place] [address] CT Scan Report Signed Patient: Tosha Macias KMR#: [id number] : 1950Acct:[id number] Age/Sex: 73 / FADM Date: 12/13/23 Loc: XT Room:Type: [facility] Attending Dr: Rose Ohara MD Copies to: MD Farhana Gutierrez APRN Ordering Provider: Farhana Sotomayor APRN Date of Service: 12/13/23 CT/CT abdomen pelvis w con: surveillancemelanoma ([id number]) CT/CT chest w con: surveillance melanoma CT Chest, Abdomen and Pelvis with contrast TECHNIQUE: Axial imaging with 2-D reconstruction. 90 cc of Isovue-300TheCT exam was performed using one or more the following dose reduction techniques: Automatedexposure control, adjustment of the MA and/or Kv according to patient size, or use of the iterativereconstruction technique. History: Yearly assessment for melanoma. COMPARISON: 12/21/2022 THYROID: No significant thyroid abnormality identified. AIRWAY: Central airway is patent. ESOPHAGUS: Esophagus normal course and caliber. HEART: Heart is not enlarged. PERICARDIAL EFFUSION: Minimal CORONARY ARTERY CALCIFICATION: Extensive atherosclerosis MEDIASTINUM: Nonenlarged mediastinal lymph nodes identified. HILAR REGION: No hilar mass or adenopathy is seen. THORACIC AORTA: No thoracic aortic aneurysm or dissection. Noatherosclerosis LUNG INTERSTITIUM: No infiltrate or congestion identified. Mildatelectasis/scarring. PLEURAL EFFUSION No pleural effusion identified. PNEUMOTHORAX: No pneumothorax seen. LUNG NODULE: No lung nodules identified. CHEST WALL: No chest wall abnormality seen. The bony chest intact. LIVER: No hepatic mass or intrahepatic biliary ductal dilatation isidentified. Normal density of the liver parenchyma identified. GALLBLADDER: No gallbladder abnormalities identified. BILE DUCTS: No biliary duct dilatation identified. SPLEEN: Normal PANCREAS: Unremarkable ADRENAL GLANDS: The adrenal glands are unremarkable. KIDNEYS: Unremarkable ABDOMINAL AORTA: The abdominal aorta is normal. RETROPERITONEUM: No significant retroperitoneal abnormalities identified. STOMACH:Nondistended SMALL BOWEL: The small bowel loops are nondistended. Duodenal diverticulumredemonstrated. APPENDIX: The appendix is normal. COLON: There is no colitis or diverticulitis. Sigmoid diverticulosis. URINARY BLADDER: Urinary bladder is unremarkable. REPRODUCTIVE STRUCTURES: Similar partially calcified fibroid uterus. FREE AIR: None FREE FLUID: None ABDOMINAL WALL: The bony structures are unremarkable. No subcutaneoussoft tissue abnormality identified. INGUINAL HERNIA: None BONES:A similar degenerative change. Mild scoliosis. CT/CT chest w con IMPRESSION: No evidence of metastatic disease of the chest, abdomen or pelvis. PRELIMINARY RESULTS: None given Impression dictated by: Omid Echevarria M.D.12/13/2023 2:39 PM Dictation Location: [place] [address] Transcribed By: [facility] 12/13/23 1439 Dictated By: Omid Echevarria DO 12/13/23 1430 Signed By: <Electronically signed by Omid Echevarria DO in OV> 12/13/23 1439 Farhana Sotomayor NP IMG CT PROCEDURES Final Result documented in this encounter Visit Diagnoses Not on filedocumented in this encounter Care Teams Motel Keeper Relationship Specialty Start Date End Date Unallocated, Noms Provider, [place] [address] PCP - General Family Medicine 12/06/23 documented as of this encounter
--- OUTSIDE RECORDS SUMMARY | 2025-08-20 07:24 | XMS_ITS | Encounter Summary ---
Author Organization [facility] tem Address [id number] [address] [place] [address] Care Team Providers Care Geriatric Case Manager Name Role Phone Wild Stone DO Primary Care Provider [phone] Encounter Details Date Type Department Care Team (Late st Contact Info) Description 08/22/2024 Orders Only [facility] Internal Medicine - Family Medicine [address] [place] [address] Wild Stone DO [address], [place] [address] Social History Tobacco Use Types Packs/Day Years [...] often do you attend chur ch or religion services? Never 03/10/2023 Do you belong to any clubs o r organizations such as jainism groups, unions, fraternal or athletic groups, or [...] Answer Date Recorded Total Score 0 08/16/2024 [facility] of Occupat ional Health - Occupational Stress [...] - Family Medicine [address] [place] [address] Wild Stone DO [address] [facility] [address] documented as of this encounter Visit Diagnoses Not on filedocumented in this encounter Additional Health Concerns Assessment Noted Time PHQ-9 Depression Total Score: 0 08/16/20 24 3:14 PM EDT A Body Mass Index follow-up plan has been documented for the patient 08/20/2024 12:52 PM EDT documented as of this encounter Care Teams Geriatric Case Manager Relationship Specialty Start Date End Date Wild Stone DO [address] [facility] [address] PCP - General Family Medicine 11/30/17 documented as of this encounter
--- OUTSIDE RECORDS SUMMARY | 2025-08-20 07:24 | XMS_ITS | Encounter Summary ---
Author Organization [employer] s tem Address [facility] [id number] [address] [place] [address] Care Team Providers Care Manager State Name Role Phone Wild Stone DO Primary Care Provider [phone] Reason for Visit * Reason Comments Med Refill Encounter Details Date Type Department Care Team (Late Contact Info) Description 02/08/2023 Refill [facility] Medicine - Family Medicine [address] [place] [address] Irene Schrader, SCHOOL LIBRARIAN-TROLLEY WIRE INSTALLER [address] [place], [place] [id number] Social History Tobacco Use Types Packs/Day Years [...] Medicine - Family Medicine [address] [place] [address] Wild Stone DO [address], [facility] [address] [place], [place] [address] documented as of this encounter Visit Diagnoses Not on filedocumented in this encounter Care Teams Manager State Relationship Specialty Start Date End Date Wild Stone DO [address] [facility], [place] [address] PCP - General Family Medicine 11/30/17 documented as of this encounter
--- OUTSIDE RECORDS SUMMARY | 2025-08-20 07:24 | XMS_ITS | Encounter Summary ---
Author Organization [facility] [employer] Sys tem Address [facility]-[id number] [address] [place] [address] Care Team Providers Care Vapor Coater Name Role Phone ChaseWild Jailene VIRAMONTES Primary Care Provider [phone] Encounter Details Date Type Department Care Team (Late st Contact Info) Description 03/04/2023 Orders Only [facility] - Family Medicine [address] [place] [phone] Lanny Rodas CMA Benign hypertension with chronic kidney disease, stage II Social History Tobacco Use Types Packs/Day Years Used Date Smoking Tobacco: Never Smokeless Tobacco: Never Overall Financial Resource Strain (CARDIA) Answe r Date Recorded How hard is it for you to pa y for the very basics like food, housing, medical care, and heating? Not hard at all 03/08/2023 PHQ-2 Answer Date Recorded Total Score 3 03/08/2023 PRAPARE - Transportation Answer Date Re corded [...] household? No 03/08/2023 Childcare Answer Date Recorded Childcare Unknown 04/09/2019 [...] - Family Medicine [address] [place] [address] Wild Stone DO [address], [place] [address] documented as of this encounter Procedures Procedure Name Priority Date/Time Associated Diagnosis Comments COMPREHENSIVE METABOLIC PANEL Routine 03/03/2023 Benign hypertension with chronic kidney disease, stage II documented in this encounter Results * (ABNORMAL) Comprehensive metabolic panel (03/03/2023) External Albumin 3.7 3.4 - 5 [facility] External Alt Sgpt 22 14 - 59 [facility] External Anion Gap 15.4 [facility] External Ast 14(A) 15 - 37 [facility] External Blood Urea Nitrogen Bun 26(A) 7 - 18 [facility] External Calcium Ca 9.4 8.5 - 10.1 [facility] External Chloride 102 98 - 107 [facility] External Co2 / Carbon Dioxide 28 21 - 32 [facility] External Creatinine 1.04(A) 0.55 - 1.02 [facility] External Gfr Amer >60 >60 [facility] External Gfr Non Amer 52 >60 [facility] External Alkaline Phosphatase 66 46 - 116 [facility] External Glucose Fasting Or Random (Fbs) 174(A) 74 - 108 [facility] External Potassium K 5.4(A) 3.5 - 5.1 [facility] External Sodium Na 140 136 - 145 [facility] Total Bilirubin 1 0.2 - 1 [facility] External Total Protein 7.2 6.4 - 8.2 [facility] Blood 03/03/2023 us Wild Stone DO LAB BLOOD ORDERABLES Edited Result - Final [facility] documented in this encounter Visit Diagnoses Diagnosis Benign hypertension with chronic kidney disease, stage II documented in this encounter Care Teams Vapor Coater Relationship Specialty Start Date End Date Wild Stone DO [address] [facility], [place] [address] PCP - General Family Medicine 11/30/17 documented as of this encounter
--- OUTSIDE RECORDS SUMMARY | 2025-08-20 07:24 | XMS_ITS | Encounter Summary ---
Author Organization [employer] tem Address [facility] [place]-[id number] [address] [place] [address] Care Team Providers Care Ase Master Mechanic Name Role Phone Wild Stone DO Primary Care Provider [phone] Reason for Visit * Reason Comments Med Refill Encounter Details Date Type Department Care Team (Late Contact Info) Description 07/14/2022 Refill [facility] - Family Medicine [address] [place] [address] Wild Stone DO [address] [facility], [address] [place], [place] [id number] Social History Tobacco Use Types Packs/Day Years [...] Medicine - Family Medicine [address] [place] [address] Wild Stone DO [address], [address] [place], [place] [id number] documented as of this encounter Visit Diagnoses Not on filedocumented in this encounter Care Teams Ase Master Mechanic Relationship Specialty Start Date End Date Wild Stone DO [address] [facility], [place] [address] PCP - General Family Medicine 11/30/17 documented as of this encounter
--- OUTSIDE RECORDS SUMMARY | 2025-08-20 07:24 | XMS_ITS | Clinical Summary ---
Author Organization [employer] tem Address [facility] [id number] [address] [place] [address] Care Team Providers Care Hardwood Floor Installer Name Role Phone DavidWild recinos Jailene VIRAMONTES Primary Care Provider Allergies Active Allergy Reactions Criticality Noted Date Comments Amlodipine Other (See Comments) 03/26/2025 Possible leg swelling Spironolactone Other (See Comments) 03/26/2025 Hyperkalemia Medications aspirin (ADULT LOW DOSE ASPIRIN) 81 mg Active blood-glucose sensor (DEXCOM G7 SENSOR) deviceIndications :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 ([facility]) 1 Unit by miscellaneous route every 10 days. 3 each 5 023 Active magnesium oxide 400 mg magnesium tablet Magnesium 90 tablet 1 024 Active furosemide (LASIX) 40 mg tablet Take 1 tablet (40 mg total) by mouth daily. 024 Active clobetasoL (TEMOVATE) 0.05 % ointment Apply 1 Application topically in the morning and 1 Application before bedtime 15 g 025 Active insulin degludec (TRESIBA FLEXTOUCH U-100) 100 unit/mL (3 mL) insulin penIndications:Ty pe 2 diabetes mellitus with stage 2 chronic kidney disease, with long-term current use of insulin ([facility]) Inject 50 Units under the skin nightly. 45 mL 1 025 Active cholestyramine (QUESTRAN) 4 g packet mix 1 packed DIRECTED and take BY MOUTH DAILY 30 packet 1 025 Active suzetrigine (JOURNAVX) 50 mg tabletIndications :Degeneration of intervertebral disc of lumbar region with discogenic back pain Take 1 tablet (50 mg total) by mouth every 12 (twelve) hours. 30 tablet 1 Active insulin aspart U-100 (NovoLOG Flexpen U-100 Insulin) 100 unit/mL (3 mL) insulin pen Inject 8 Units under the skin in the morning and 8 Units at noon and 8 Units in the evening. Inject with meals. Active suzetrigine (JOURNAVX) 50 mg tablet Take 1 tablet (50 mg total) by mouth every 12 (twelve) hours. 5 tablet 025 Active gabapentin (NEURONTIN) 100 mg capsuleIndication s:Degeneration of intervertebral disc of lumbar region with discogenic back pain Take 1 capsule (100 mg total) by mouth 3 (three) times a day. 90 capsule 025 Active carvediloL (COREG) 25 mg tabletIndications :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 ([facility]) Take 1 tablet (25 mg total) by mouth in the morning and 1 tablet (25 mg total) before bedtime. 180 tablet 1 Active metFORMIN (GLUCOPHAGE) 1000 mg tablet Take 1 tablet (1,000 mg total) by mouth in the morning and 1 tablet (1,000 mg total) in the evening. Take with meals. 180 tablet 3 Active lisinopriL (PRINIVIL,ZESTRIL ) 40 mg tablet TAKE 1 TABLET BY MOUTH IN THE MORNING 90 tablet 3 Active rosuvastatin (CRESTOR) 10 mg tablet TAKE 1 TABLET BY MOUTH EVERY MORNING 90 tablet 3 Active allopurinoL (ZYLOPRIM) 100 mg tablet TAKE 1 TABLET BY MOUTH IN THE MORNING 30 tablet 3 025 Active allopurinoL (ZYLOPRIM) 100 mg tablet Take 1 tablet (100 mg total) by mouth in the morning. 30 tablet 5 025 Active lisinopriL (PRINIVIL,ZESTRIL ) 40 mg tablet Take 1 tablet (40 mg total) by mouth in the morning. 90 tablet 1 025 Active metFORMIN (GLUCOPHAGE) 1000 mg tablet Take 1 tablet (1,000 mg total) by mouth in the morning and 1 tablet (1,000 mg total) in the evening. Take with meals. 180 tablet 3 Active carvediloL (COREG) 25 mg tabletIndications :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 (CMS-HCC) Take 1 tablet (25 mg total) by mouth in the morning and 1 tablet (25 mg total) before bedtime. 180 tablet 3 Active rosuvastatin (CRESTOR) 10 mg tablet Take 1 tablet (10 mg total) by mouth every morning. 90 tablet 1 Active pantoprazole (PROTONIX) 40 mg EC tablet Take 1 tablet (40 mg total) by mouth in the morning and 1 tablet (40 mg total) in the evening. Take before meals. 90 tablet 1 Active metFORMIN (GLUCOPHAGE) 1000 mg tablet Take 1 tablet (1,000 mg total) by mouth in the morning and 1 tablet (1,000 mg total) in the evening. Take with meals. 180 tablet 3 2024 Discontinued carvediloL (COREG) 25 mg tabletIndications :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 (CMS-HCC) Take 1 tablet (25 mg total) by mouth in the morning and 1 tablet (25 mg total) before bedtime. 180 tablet 3 024 2024 Discontinued lisinopriL (PRINIVIL,ZESTRIL ) 40 mg tablet Take 1 tablet (40 mg total) by mouth in the morning. 90 tablet 1 2024 Discontinued rosuvastatin (CRESTOR) 10 mg tablet Take 1 tablet (10 mg total) by mouth every morning. 90 tablet 1 2024 Discontinued allopurinoL (ZYLOPRIM) 100 mg tablet TAKE 1 TABLET BY MOUTH IN THE MORNING 30 tablet 5 2024 Discontinued pantoprazole (PROTONIX) 40 mg EC tablet Take 1 tablet (40 mg total) by mouth in the morning and 1 tablet (40 mg total) in the evening. Take before meals. 2024 Discontinued(R eorder) colchicine (COLCRYS) 0.6 mg tablet Take 1 tablet (0.6 mg total) by mouth in the morning and 1 tablet (0.6 mg total) before bedtime. Do all this for 5 days. 10 tablet 025 2024 Active Problems Problem Noted Date Diagnosed Date Degeneration of intervertebr al disc of lumbar region with discogenic back pain 07/17/2025 Rupture of operation wound 12/23/2023 S/P total knee replacement using cement, left 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 03/14/2023 Osteoarthritis of knee 09/06/2022 Post-traumatic osteoarthritis of left wrist 08/09 Essential hypertension 08/05/2022 Metabolic syndrome X 08/05/2022 Morbid obesity 04/08/2022 Nonalcoholic fatty liver disease 02/16/2022 Mixed hyperlipidemia 12/25/2021 Malignant melanoma of right upper limb, includin g shoulder 08/21/2020 Arthritis 10/24/2017 Degeneration of thoracic intervertebral disc Irritable bowel syndrome 02/03/2017 Type 2 diabetes mellitus 03/04/2016 Resolved Problems Problem Noted Date Diagnosed Date Resolved Date Enlarged pituitary gland 12/30/2023 Hyperkalemia 03/10/2023 03/14/2023 Pain in wrist 09/06/2022 04/15/2023 Pancreatitis 08/05/2022 09/06/2022 Benign hypertension with chr onic kidney disease, stage II 02/16/2022 03/14/2023 Dyspnea on exertion 12/25/2021 12/23/19 24 Diastolic dysfunction 12/02/20212023 Fracture of orbital floor 04/03/2019 Hypokalemia 02/03/2017 03/14/2023 Encounters Date Type Department Care Team Description 08/07/2025 Refill [facility] - Family Medicine [address] [place] [address] Tressa Campbell, MARLENE 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 ([facility]) 08/06/2025 Refill [facility] - Family Medicine [address] [place] [address] Wild Stone, 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 ([facility]) 08/01/2025 Orders Only [facility] - Family Medicine [address] [place] [address] Ref Prov, Not In System 07/30/2025 Orders Only [facility] - Family Medicine [address] [place] [address] Ref Prov, Not In System 07/29/2025 Orders Only [facility] - Family Medicine [address] [place] [address] Wild Stone, DO 07/29/2025 Telephone [facility] - [facility] [address] [place] [address] [facility] 07/19/2025 Orders Only [facility] - Family Medicine [address] [place] [address] Wild Stone, Degeneration of intervertebral disc of lumbar region with discogenic back pain (Primary Dx) 07/19/2025 Telephone [facility] - Family Medicine [address] [place] [address] [facility] 07/17/2025 9:00 AM EDT Office Visit [facility] - Family Medicine [address] [place] [address] Wild Stone, 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 ([facility]) (Primary Dx); Degeneration of intervertebral disc of lumbar region with discogenic back pain; Morbid obesity ([facility]) 07/17/2025 Orders Only [facility] - Family Medicine [address] [place] [address] Ref Prov, Not In System 07/17/2025 Travel 07/15/2025 Travel 07/04/2025 Orders Only [facility] - Family Medicine [address] [place] [address] Wild Stone DO 07/04/2025 Telephone [facility] - Family Medicine [address] [place] [address] Karen Montalvo CMA 06/18/[address] [facility] - Sleep Disorders [address] [place] [phone] Transcribe, Orders Support User Sleep Lab (Pap Order) 06/17/2025 10:00 AM EDT Telemedicine [facility] Pul[facility]/Sleep Medicine [address] [facility] [address] [place] [address] Sierra Wood MD RONEN (obstructive sleep apnea) (Primary Dx); Class 3 severe obesity due to excess calories with serious comorbidity and body mass index (BMI) of 40.0 to 44.9 in adult ([facility]); Essential hypertension, benign; Nocturia 06/17/2025 Travel 05/27/2025 Orders Only [facility] - Family Medicine [address] [place] [address] Karen Montalvo CMA Localized swelling of left foot 05/20/2025 Telephone [facility]/Sleep Medicine [address] [facility] [address] [facility] [place] [address] Dee Dee Horton MD from Last 3 Months Immunizations Immunization Administration Dates Next Due Influenza (IM) Preservative Free 09/05/2016,11/2014 Influenza Vaccine, Quadrivalent, Adjuvanted 04/2023 Influenza, High-dose, Quadrivalent 10/08/2022 Influenza, Injectable, MDCK, Quadrivalent 2018 Influenza, Injectable, Mdck, Preservative Free, Quad 10/24/2017 Influenza, Injectable, Quadrivalent 10/12/2020 Influenza, Trivalent, Adjuvanted 08/16/2024 Pneumococcal Conjugate 13-Valent 08/05/2016 Pneumococcal Polysaccharide 10/24/2017 Tdap 09/18/2012 Varicella 01/12/2013 Family History Medical History Relation Name Comments Heart disease Father Leukemia Father Stroke Maternal Grandfather Stroke Mother at age99 No Known Problems Sister Breast cancer Neg Hx Relation Name Status Comments Father Maternal Grandfather Mother Sister Alive Social History Tobacco Use Types Packs/Day Years [...] often do you attend chur ch or gnosticism services? Never 03/10/2023 Do you belong to [...] Answer Date Recorded Total Score 0 07/17/2025 [facility] of Occupat ional Health - Occupational Stress [...] Recorded Do you need help finding a [facility] career center and/or a training program? [...] Sign Reading Time Taken Comments Blood Pressure 130/82 07/17/2025 8:54 AM EDT Pulse 63 07/17/2025 8:54 AM EDT Temperature 36.8 C (98.2 F) 07/17/2025 8:54 AM EDT Respiratory Rate 18 07/17/2025 8:54 AM EDT Oxygen Saturation 96% 07/17/2025 8:54 AM EDT Inhaled Oxygen Concentration - - Weight 94.8 kg (209 lb) 07/17/2025 8:54 AM EDT Height 152.4 cm (5') 07/17/2025 8:54 AM EDT Body Mass Index 40.82 07/17/2025 8:54 AM EDT Plan of Treatment Upcoming Encounters Date Type Department Care Team (Late st Contact Info) Description 10/16/2025 8:30 AM EST Office Visit [facility] - Family Medicine [address] [place] [address] Wild Stone DO [address], [place] [address] Health Maintenance Due Date Last Done Comments Zoster (Shingles) Vaccine (1 of 2) 03/09/2013 01/12/2013 Medicare Annual Wellness Visit 03/20/2025 03/20/2024, 03/10/2023 Influenza Vaccine 07/08/2025 08/16/2024, , 10/08/2022, Additional history exists Diabetic Ophthalmology Exam 09/04/202508/08, 09/01/2023, 09/02/2022 DTaP,Tdap and Td Vaccines (2 - Td or Tdap) 11/07/2025 09/18/2012 Postponed from 09/18/2022 (Vaccine Not Available) Colon Cancer Screening 3 Year Cologuard 03/25/2026 03/25/2023 Depression Screening 07/17/2026 07/17/2025 Fall Risk Screening 07/17/2026 07/17/2025 Tobacco Screening 07/17/2026 07/17/2025 COVID-19 Vaccine Discontinued 10/06/2021, , 01/01/2021 Medical Devices Not on file Procedures Procedure Name Priority Date/Time Associated Diagnosis Comments XR CHEST 1 VW Routine 08/01/2025 8:50 AM EDT XR KNEE LT 3 VWS Routine 07/20/2025 9:13 AM EDT EXTERNAL GEOLOGIC TECHNICIAN, CGM SYS Routine 07/17/2025 3:06 PM EDT POCT HEMOGLOBIN A1C Routine 07/17/2025 9 :13 AM EDT 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 ([facility]) MULTIPLE LABS Routine 07/16/2025 9:54 AM EDT VASC VENOUS DUPLEX LOWER LEFT STAT 05/27/2025 10:24 AM EDT Localized swelling of left foot HM DIABETES EYE EXAM Routine 09/04/2024 9:51 AM EDT COLOGUARD NON-[facility] Routine 03/25/2023 10:00 AM EDT Special screening for malignant neoplasm of colon from Last 3 Months or Most Recently Relevant to Health Maintenance Results * X-ray chest 1 view (08/01/2025 8:50 AM EDT) Anatomical Region Laterality Modality Body, Chest N/A Computed Radiogr aphy us Not In System Ref Prov IMG DIAGNOSTIC IMAGING OR DERABLES Final Result * X-ray knee left 3 views (07/20/2025 9:13 AM EDT) Anatomical Region Laterality Modality Lower Extremities, MSK, Knee Left Com puted Radiography us Not In System Ref Prov IMG DIAGNOSTIC IMAGING OR DERABLES Final Result * EXTERNAL GEOLOGIC TECHNICIAN, CGM SYS (07/17/2025 3:06 PM EDT) us Not In System Ref Prov [place] MISCELL[employer] Final Result Performing Organization Address [facility] de Phone Number MANUALLY TRANSCRIBED RESULTS * POCT Hemoglobin A1c (07/17/2025 9:13 AM EDT) External Poct Hgb A1C 7.0 4 - 7 % MANUALLY TRANSCRIBED RESULTS Blood 07/17/2025 9:13 AM EDT us Wild Stone DO POINT OF CARE TEST ORDERABLE S Final Result Performing Organization Address [facility] de Phone Number MANUALLY TRANSCRIBED RESULTS * Multiple labs (07/16/2025 9:54 AM EDT) us Not In System Ref Prov [place] IMAGING Final Res ult Performing Organization Address [facility] de Phone Number MANUALLY TRANSCRIBED RESULTS * Vas venous duplex lwr single left (05/27/2025 10:24 AM EDT) Anatomical Region Laterality Modality Vascular Left Ultrasound us Sarah Romero INSPECTOR PRECISION ASSEMBLY-LINER MAN CV VASCULAR ORDERABLES F inal Result * HM DIABETES EYE EXAM (09/04/2024 9:51 AM EDT) us Not In System Ref Prov HEALTH MAINTENANCE Final Result MANUALLY TRANSCRIBED RESULTS * Cologuard [facility] (03/25/2023 10:00 AM EDT) EXTERNAL COLOGUARD Negative Negative 2022 4:50 PM EDT [facility] (CLIA #:[id number]) Comment: NEGATIVE TEST RESULT. A negative Cologuard result indicates a low likelihood that a colorectal cancer (CRC) or advanced adenoma (adenomatous polyps with more advanced pre-malignant features) is present. The chance that a person with a negative Cologuard test has a colorectal cancer is less than 1 in 1500 (negative predictive value >99.9%) or has an advanced adenoma is less than 5.3% (negative predictive value 94.7%). These data are based on a prospective cross-sectional study of 10,000 individuals at average risk for colorectal cancer who were screened with both Cologuard and colonoscopy. (Karla Suarez. et al, N Engl J Med 2014;370(14):8917-6127) The normal value (reference range) for this assay is negative. COLOGUARD RE-SCREENING RECOMMENDATION: Periodic colorectal cancer screening is an important part of preventive healthcare for asymptomatic individuals at average risk for colorectal cancer. Following a negative Cologuard result, the [place] [employer] Society and U.S. Multi-Society Task Force screening guidelines recommend a Cologuard re-screening interval of 3 years. References: [place] [employer] Guideline for Colorectal Cancer Screening: https://www.cancer.org/cancer/bvuyb-aitavh-uyzphf/cmetnnugt-jpamcddnt-dcaphra/ac s-rec ommendations.html.; Rober DK, Carter BEAUCHAMP, Main VAIL, Colorectal Cancer Screening: Recommendations for Physicians and Patients from the U.S. Multi-Society Task Force on Colorectal Cancer Screening , Am J Gastroenterology 2017; 112:1548-9363. TEST DESCRIPTION: Composite algorithmic analysis of stool DNA-biomarkers with hemoglobin immunoassay. Quantitative values of individual biomarkers are not reportable and are not associated with individual biomarker result reference ranges. Cologuard is intended for colorectal cancer screening of adults of either sex, 45 years or older, who are at average-risk for colorectal cancer (CRC). Cologuard has been approved for use by the U.S. FDA. The performance of Cologuard was established in a cross sectional study of average-risk adults aged 50-84. Cologuard performance in patients ages 45 to 49 years was estimated by sub-group analysis of near-age groups. Colonoscopies performed for a positive result may find as the most clinically significant lesion: colorectal cancer [4.0%], advanced adenoma (including sessile serrated polyps greater than or equal to 1cm diameter) [20%] or non- advanced adenoma [31%]; or no colorectal neoplasia [45%]. These estimates are derived from a prospective cross-sectional screening study of 10,000 individuals at average risk for colorectal cancer who were screened with both Cologuard and colonoscopy. (Karla Singh et al, N Engl J Med 2014;370(14):0673-6274.) Cologuard may produce a false negative or false positive result (no colorectal cancer or precancerous polyp present at colonoscopy follow up). A negative Cologuard test result does not guarantee the absence of CRC or advanced adenoma (pre-cancer). The current Cologuard screening interval is every 3 years. ([place] [employer] Society and U.S. Multi-Society Task Force). Cologuard performance data in a 10,000 patient pivotal study using colonoscopy as the reference method can be accessed at the following location: www.ITema.YYoga/results. Additional description of the Cologuard test process, warnings and precautions can be found at www.Enlytonoguard.com. Stool specimen (specimen) Rectum structure / Unknown 03/25/2023 10:00 AM EDT 03/26/2023 1:41 PM EDT Wild Stone DO LAB ORDERABLES Final Result [facility] (CLIA #:[id number]) [address] [place] [address], from Last 3 Months or Most Recently Relevant to Health Maintenance Insurance [employer] [place] Care Teams Hardwood Floor Installer Relationship Specialty Start Date End Date Wild Stone DO [address], [place] [address] PCP - General Family Medicine 11/30/17
--- OUTSIDE RECORDS SUMMARY | 2025-08-20 07:24 | XMS_ITS | Encounter Summary ---
Author Organization [facility] Address [facility] [id number] [address] [place] [address] Care Team Providers Care Buttonholer Name Role Phone ChaseWild Jailene VIRAMONTES Primary Care Provider [phone] Encounter Details Date Type Department Care Team (Late st Contact Info) Description 05/27/2025 Orders Only [facility] Internal [facility] - Family Medicine [address] [place] [phone] Karen Montalvo CMA Localized swelling of left foot Social History Tobacco Use Types Packs/Day Years [...] often do you attend chur ch or baptist services? Never 03/10/2023 Do you belong to any clubs o r organizations such as oriental orthodox groups, unions, fraternal or athletic groups, or [...] PHQ-2 Answer Date Recorded Total Score 0 05/14/2025 [facility] of Occupat ional Health - Occupational [...] Recorded Do you need help finding a [facility] career center and/or a training program? No 03/10/2023 Hunger Screening Answer Date Recorded Within the past 12 months we worried whether our food would run out before we got money to buy more. Never True 05/14/2025 Within the past 12 months th e food we bought just didn't last and we didn't have money to get more. Never True 05/14/2025 Purpose - Life Answer Date Recorded Purpose [...] - Family Medicine [address] [place] [address] Wild Stone DO [address], [facility] [address] documented as of this encounter Procedures Procedure Name Priority Date/Time Associated Diagnosis Comments VASC VENOUS DUPLEX LOWER LEFT STAT 05/27/2025 10:24 AM EDT Localized swelling of left foot documented in this encounter Results * Vas venous duplex lwr single left (05/27/2025 10:24 AM EDT) Anatomical Region Laterality Modality Vascular Left Ultrasound Sarah Romero HUNTER-BUSINESS ANALYST SALES OPERATIONS CV VASCULAR ORDERABLES F inal Result documented in this encounter Visit Diagnoses Diagnosis Localized swelling of left foot documented in this encounter Additional Health Concerns Assessment Noted Time PHQ-9 Depression Total Score: 0 05/14/20 25 1:55 PM EDT A Body Mass Index follow-up plan has been documented for the patient 05/14/2025 3:54 PM EDT documented as of this encounter Care Teams Buttonholer Relationship Specialty Start Date End Date Wild Stone DO [address], [facility] [address] PCP - General Family Medicine 11/30/17 documented as of this encounter
--- OUTSIDE RECORDS SUMMARY | 2025-08-20 07:24 | XMS_ITS | Encounter Summary ---
Author Organization [employer] Address [id number] [address] [place] [address] Care Team Providers Care Mechanical Fitter Name Role Phone Chase Wild Dent DO Primary Care Provider [phone] Encounter Details Date Type Department Care Team (Late st Contact Info) Description 07/04/2025 Telephone [facility] - Family Medicine [address] [place] [phone] Karen Montalvo CMA Social History Tobacco Use Types Packs/Day [...] often do you attend chur ch or yarsanism services? Never 03/10/2023 Do you belong to [...] Answer Date Recorded Total Score 0 05/14/2025 [facility] ional Health - Occupational Stress [...] Recorded Do you need help finding a [facility] career center and/or a training program? [...] encounter Miscellaneous Notes * Telephone Encounter - Karen Montalvo CMA - 07/04/2025 8:41 AM EDT Patient called and she has gout again in her ankle She wants to know if you will call her medication in for this? * Telephone Encounter - Wild Stone DO - 07/04/2025 8:41 AM EDT Okay documented in this encounter Plan of Treatment Upcoming Encounters Date Type Department Care Team (Late st Contact Info) Description 10/16/2025 8:30 AM EST Office Visit [facility] - Family Medicine [address] [place] [address] Wild Stone DO [address] [place] [address] documented as of this encounter Visit Diagnoses Not on filedocumented in this encounter Additional Health Concerns Assessment Noted Time PHQ-9 Depression Total Score: 0 05/14/20 25 1:55 PM EDT A Body Mass Index follow-up plan has been documented for the patient 05/14/2025 3:54 PM EDT documented as of this encounter Care Teams Mechanical Fitter Relationship Specialty Start Date End Date Wild Stone DO [address] [place] [address] PCP - General Family Medicine 11/30/17 documented as of this encounter
--- OUTSIDE RECORDS SUMMARY | 2025-08-20 07:24 | XMS_ITS | Encounter Summary ---
Author Organization [facility] Address [id number] [address] [place] [address] Care Team Providers Care Cocoa Powder Mixer Operator Name Role Phone Wild Stone DO Primary Care Provider Encounter Details Date Type Department Care Team (Late st Contact Info) Description 10/05/2022 [facility] [address] [place] [phone] Cl Jain CMA Social History Tobacco Use Types Packs/Day [...] AM EDT documented as of this encounter Miscellaneous Notes * Telephone Encounter - Cl Jain CMA - 10/05/2022 2:12 PM EST Patient called asking for samples trulicity and insulin. Adise? * Telephone Encounter - Wild Stone DO - 10/05/2022 2:12 PM EST Okay for samples if we have them * Telephone Encounter - Amanda Poole CMA - 10/05/2022 2:12 PM EST Can you please get the Tojeo max ready and call patient when ready. * Telephone Encounter - Karen Montalvo CMA - 10/05/2022 2:12 PM EST Left a message for the patient to come pick pulling machine tender her samples documented in this encounter Plan of Treatment Upcoming Encounters Date Type Department Care Team (Late st Contact Info) Description 10/16/2025 8:30 AM EST Office Visit [facility] - Family Medicine [address] [place] [address] Wild Stone DO [address] [place] [address] documented as of this encounter Visit Diagnoses Not on filedocumented in this encounter Care Teams Cocoa Powder Mixer Operator Relationship Specialty Start Date End Date Wild Stone DO [address] [place] [address] PCP - General Family Medicine 11/30/17 documented as of this encounter
--- OUTSIDE RECORDS SUMMARY | 2025-08-20 07:24 | XMS_ITS | Clinical Summary ---
Author Organization [facility] Address [address] [place] [address] Care Team Providers Care Mail Opener Name Role Phone Wild Stone DO Primary Care Provider [phone] Allergies Active Allergy Reactions Criticality Noted Date Comments Amlodipine Other 03/26/2025 Possible leg swelling Empagliflozin Rash Medium 05/18/2024 Spironolactone Other 03/26/2025 Hyperkalemia Medications insulin NPH and regular human (NovoLIN 70-30 FlexPen U-100) 100 unit/mL (70-30) injection Novolin 70-30 FlexPen U-100 Active aspirin 81 mg chewable tablet in the morning. Active carvedilol (Coreg) 25 mg tablet Take 25 mg by mouth in the morning and at bedtime. 2 Active metFORMIN (Glucophage) 1,000 mg tablet Take 1,000 mg by mouth with breakfast and with evening meal. Active rosuvastatin (Crestor) 10 mg tablet rosuvastatin 10 mg tablet take 1 tablet by mouth once daily 2 Active magnesium oxide (Mag-Ox) 400 mg tablet Magnesium Active lisinopril 40 mg tabletIndication s:Benign hypertensive heart disease with heart failure (CMS/HCC) Take 1 tablet (40 mg) by mouth once daily as directed. 90 tablet 3 4 Active allopurinol (Zyloprim) 100 mg tablet take 1 tablet by mouth IN THE MORNING ( START after FLARE UP RESOLVES ) 4 Active ergocalciferol (Vitamin D-2) 1.25 MG (02689 Units) capsule Take 1 capsule by mouth 1 (one) time per week. 4 Active Tresiba FlexTouch U-100 100 unit/mL (3 mL) injection Inject TEN Units under the skin NIGHTLY Active furosemide (Lasix) 40 mg tabletIndication s:Edema, unspecified type Take 1 tablet (40 mg) by mouth in the morning. 5 026 Active insulin aspart (NovoLOG) 100 unit/mL (3 mL) injection pen Inject 6 Units under the skin with breakfast, with lunch, with evening meal, and at bedtime. 5 Active cholestyramine (Questran) 4 gram packet Take 1 packet by mouth with breakfast and with evening meal. Active pantoprazole (ProtoNix) 40 mg EC tablet Take 40 mg by mouth before breakfast and before evening meal. Active Active Problems Problem Noted Date Diagnosed Date Left wrist pain 06/27/2025 Presence of left artificial knee joint Arm fracture 03/26/2025 Carpal tunnel syndrome 03/26/2025 Gout 03/26/2025 History of kidney stones 03/26/2025 Hydroureteronephrosis 03/26/2025 Osteoporosis 03/26/2025 Pilonidal cyst 03/26/2025 RONEN (obstructive sleep apnea) 03/10/2025 Atelectasis pulmonary 03/10/2025 Pulmonary infiltrate 03/10/2025 BOO (acute kidney injury) 03/09/2025 Hypovolemia 03/09/2025 Lactic acidosis 03/09/2025 Troponin level elevated 03/05/2025 Acute cholecystitis 03/03/2025 Encounter for antineoplastic immunotherapy 12/3012/30/2023 Enlarged pituitary gland 12/30/2023 024 Rupture of operation wound 12/23/202312/30 S/P total knee replacement using cement, left 12/02/2023 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 03/14/2023 05/17/2023 Assessment & Plan (05/18/2024 12:22 PM EDT): Hypertension is unchanged. States b/p at home is always < 130/80 Continue current medications. Blood pressure will be reassessed at the next regular appointment. Osteoarthritis of knee 09/06/2022 Post-traumatic osteoarthritis of left wrist 08/0905/17/2023 Nonalcoholic fatty liver disease 02/16/2022 05/17/2023 Dyspnea on exertion 12/25/2021 05/17/2023 Assessment & Plan (05/18/2024 12:23 PM EDT): Fluid overloaded on exam today will increased lasix x next 2-3 days Assessment & Plan (12/02/2023 7:53 PM EST): FINLEY and BLE edema will order echocardiogram to assess cardiac function, diastolic function and valvular function RTC after echo completed Essential hypertension 12/25/2021 Assessment & Plan (05/18/2024 12:22 PM EDT): Hypertension is stable Assessment & Plan (12/02/2023 7:51 PM EST): Hypertension is controlled and hypotensive despite not taking lisinopril 40 mg the last 2 days. Asked pt to stop norvasc and to hold lisinopril if SBP < 100 and she voiced understanding Metabolic syndrome X 12/25/2021 05/17/2023 Mixed hyperlipidemia 12/25/2021 05/17/2023 Assessment & Plan (05/18/2024 12:21 PM EDT): Lipid abnormalities are unchanged. Pharmacotherapy as ordered. Continue crestor Assessment & Plan (12/02/2023 7:50 PM EST): Continue crestor 10 mg daily Morbid obesity 12/25/2021 05/17/2023 Diastolic dysfunction 12/02/2021 05/17/2023 Assessment & Plan (05/18/2024 12:24 PM EDT): Currently fluid overloaded and will increase diuretic x next 2-3 days to lasix 40 mg po bid, repeat BMP in 2 weeks to assess renal function and electrolytes/K+ and she voiced understanding of fluid restriction, NA restriction, daily weights and red flag symptoms of when to call office Assessment & Plan (12/02/2023 7:53 PM EST): Continue lasix 20 mg daily, stop norvasc, repeat echocardiogram Malignant melanoma 08/21/2020 05/17/2023 Arthritis 10/24/2017 05/17/2023 Degeneration of thoracic intervertebral disc 05/17/2023 Irritable bowel syndrome 02/03/2017 023 Type 2 diabetes mellitus 03/04/2016 023 Encounters Date Type Department Care Team Description 06/27/2025 9:20 AM EDT Office Visit [facility] [place] [address] [place] [address] Iza Roman CNP Troponin level elevated (Primary Dx); Dyspnea on exertion; Chronic diastolic heart failure (CMS/HCC); 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 (CMS/HCC); Mixed hyperlipidemia; Benign hypertensive heart disease with heart failure (CMS/HCC); Edema, unspecified type from Last 3 Months Family History Medical History Relation Name Comments Coronary artery disease Father Heart attack Father Relation Name Status Comments Father Mother Sister Alive Social History Tobacco Use Types Packs/Day Years Used Date Smoking Tobacco: Never Smokeless Tobacco: Never Alcohol Use Standard Drinks/Week Comments Never 0 (1 standard drink = 0.6 oz pur e alcohol) [place] Safety & Environment Answer Date Rec orded Fear of Current or Ex-Partner Not on file Emotionally Abused Not on file 12/29/2023 Physically Abused Not on file 12/29/2023 Sexually Abused Not on file 12/29/2023 Physically or Sexually Abused Not on file Comments Unknown Sex and Gender Information Value Date Recorded Sex Assigned at Female 03/11/2025 11:02 AM EDT Legal Sex Female 12:43 AM EDT Gender Identity Female 03/11/2025 11:02 AM EDT Sexual Orientation Heterosexual or Straight 03/2025 11:02 AM EDT Last Filed Vital Signs Vital Sign Reading Time Taken Comments Blood Pressure 144/90 06/27/2025 9:08 AM EDT Pulse 61 06/27/2025 9:08 AM EDT Temperature - - Respiratory Rate 16 06/22/2024 10:25 AM EDT Oxygen Saturation 90% 06/27/2025 9:08 AM EDT Inhaled Oxygen Concentration - - Weight 98.4 kg (217 lb) 06/27/2025 9:08 AM EDT Height 152.4 cm (5') 06/27/2025 9:08 AM EDT Body Mass Index 42.38 06/27/2025 9:08 AM EDT Plan of Treatment Health Maintenance Due Date Last Done Comments CT Colonography 1949 Colonoscopy 1949 Diabetes: Hemoglobin A1C 1949 FOBT 1950 Medicare Annual Wellness (AWV) 1950 Sigmoidoscopy 1949 Diabetes: Retinopathy Screening 1959 Depression Screening 1961 Zoster Vaccines (1 of 2) 03/09/2013 01/12/2013 Fall Risk Screening 2014 Adult Tetanus 09/18/2022 09/18/2012 FIT 03/25/2024 03/25/2023 COVID-19 Vaccine ( season) 2025 10/06/2021, 01/22/2021, 01/01/2021 Influenza Vaccine (#1) 2025 , 09/12/2023, 10/08/2022, Additional history exists Colorectal Cancer Screening 03/25/2026 FIT-DNA 03/25/2026 03/25/2023 Pneumococcal Vaccine: 50+ Years Completed 10/24/2017, 08/05/2016 Mammogram Discontinued 06/07/2024, 07/0 05/2023, 05/13/2023 HIB Vaccines Aged Out No longer eligi ble based on patient's age to complete this topic HPV Vaccines Aged Out No longer eligi ble based on patient's age to complete this topic IPV Vaccines Aged Out No longer eligi ble based on patient's age to complete this topic Meningococcal B Vaccine Aged Out No l onger eligible based on patient's age to complete this topic Meningococcal Vaccine Aged Out No [place] keli eligible based on patient's age to complete this topic Rotavirus Vaccines Aged Out No longer eligible based on patient's age to complete this topic Insurance MEDICARE Member Subscriber Plan / Payer (Ef fective 2014-Present) Name:Tosha Macias Member ID:[id number] Relation to Subscriber:Self Name:Tosha Macias Subscriber ID:[id number] Payer ID:[id number] Group ID:Not on file Type:Medicare Address: [facility] [place] [address] [place] Care Teams Mail Opener Relationship Specialty Start Date End Date Wild Stone DO PCP - General 12/03/22
--- OUTSIDE RECORDS SUMMARY | 2025-08-20 07:24 | XMS_ITS | Encounter Summary ---
[facility] [id number] [address] [place] [address] Care Team Providers Care Paint Dipper Name Role Phone Chase Wild Dent DO Primary Care Provider [phone] Encounter Details Date Type Department Care Team (Late st Contact Info) Description 03/07/2023 Orders Only [facility] - Family Medicine [address] [place] [phone] Lanny Rodas, HAND THERMAL CUTTER Mixed hyperlipidemia Social History Tobacco Use Types Packs/Day Years [...] How often do you attend chur or mormon services? Never 03/10/2023 Do you belong to any clubs o r organizations such as sabianism groups, unions, fraternal or athletic groups, or [...] Answer Date Recorded Total Score 0 03/10/2023 [facility] of Occupat ional Health - Occupational Stress [...] Medicine [address] [place] [address] Wild Stone DO [address], [place] [address] documented as of this encounter Procedures Procedure Name Priority Date/Time Associated Diagnosis Comments LIPID PROFILE Routine 03/03/2023 Mixed hyperlipidemia documented in this encounter Results * (ABNORMAL) Lipid panel (03/03/2023) External Cholesterol 129 0 - 200 MANUALLY TRANSCRIBED RESULTS External Cholesterol:Hdl 3 MANUALLY TRANSCRIBED RESULTS External Hdl Cholesterol 43 40 - 60 MANUALLY TRANSCRIBED RESULTS External Ldl (Calc) 34.4(A) 100 - 129 MANUALLY TRANSCRIBED RESULTS External Triglycerides 258(A) 0 - 150 MANUALLY TRANSCRIBED RESULTS External Very Low Lipoprotein 51.6 MANUALLY TRANSCRIBED RESULTS Blood 03/03/2023 us Wild Stone DO LAB BLOOD ORDERABLES Final R esult MANUALLY TRANSCRIBED RESULTS documented in this encounter Visit Diagnoses Diagnosis Mixed hyperlipidemia documented in this encounter Care Teams Paint Dipper Relationship Specialty Start Date End Date Wild Stone DO [address], [place] [address] PCP - General Family Medicine 11/30/17 documented as of this encounter
--- OUTSIDE RECORDS SUMMARY | 2025-08-20 07:24 | XMS_ITS | Encounter Summary ---
Author Organization [facility] tem Address [id number] [address] [place] [address] Care Team Providers Care Counter Helper Name Role Phone DavidWild recinos Jailene VIRAMONTES Primary Care Provider [phone] Encounter Details Date Type Department Care Team (Late st Contact Info) Description 2024 Orders Only [facility] - Family Medicine [address] [place] [address] Ref Prov, [place] [address] Social History Tobacco Use Types Packs/Day Years [...] often do you attend chur ch or nondenominational services? Never 03/10/2023 Do you belong to any clubs o r organizations such as mandaen groups, unions, fraternal [...] Answer Date Recorded Total Score 0 08/16/2024 [facility] - Occupational Stress Questionnaire Answer Date [...] Recorded Do you need help finding a [facility] career center and/or a training program? [...] Medicine - Family Medicine [address] [place] [address] Wild Stone DO [address], [place] [address] documented as of this encounter Procedures Procedure Name Priority Date/Time Associated Diagnosis Comments MULTIPLE LABS Routine 12/11/2024 2:57 PM EST documented in this encounter Results * Multiple labs (12/11/2024 2:57 PM EST) us Not In System Ref Prov [facility] Final Res ult MANUALLY TRANSCRIBED RESULTS documented in this encounter Visit Diagnoses Not on filedocumented in this encounter Additional Health Concerns Assessment Noted Time PHQ-9 Depression Total Score: 0 08/16/20 24 3:14 PM EDT A Body Mass Index follow-up plan has been documented for the patient 08/20/2024 12:52 PM EDT documented as of this encounter Care Teams Counter Helper Relationship Specialty Start Date End Date Wild Stone DO [address], [facility] [place] [address] PCP - General Family Medicine 11/30/17 documented as of this encounter
--- OUTSIDE RECORDS SUMMARY | 2025-08-20 07:24 | XMS_ITS | Clinical Summary ---
Author Organization [facility] Address [address], [address] [place] [address] Care Team Providers Care Audio Experience Expert Name Role Phone Wild Stone DO Primary Care Provider Allergies No known active allergies Medications rosuvastatin (CRESTOR) 10 MG tablet Take 1 tablet by mouth daily Active furosemide (LASIX) 20 MG tablet Take 2 tablets by mouth daily Active carvedilol (COREG) 25 MG tablet Take 1 tablet by mouth 2 times daily (with meals) Active magnesium oxide (MAG-OX) 400 MG tablet Take 1 tablet by mouth daily Active lisinopril (PRINIVIL;ZESTR IL) 40 MG tablet Take 1 tablet by mouth daily Active metFORMIN (GLUCOPHAGE) 1000 MG tablet Take 1 tablet by mouth 2 times daily (with meals) Active aspirin 81 MG chewable tablet Take 1 tablet by mouth daily Active Insulin NPH Human, Isophane, (NOVOLIN N SC) Inject 60 Units into the skin Daily Active pantoprazole (PROTONIX) 40 MG tablet Take 1 tablet by mouth 2 times daily (before meals) 30 tablet 3 03/10/2025 Active Insulin Aspart FlexPen 100 UNIT/ML SOPN Inject 6 Units into the skin 3 times daily as needed 03/27/2025 Active Insulin Degludec 100 UNIT/ML SOPN Inject 10 Units into the skin nightly 03/21/2025 Active gabapentin (NEURONTIN) 300 MG capsule Take 1 capsule by mouth 3 times daily for 10 days. 30 capsule 04/13/2025 Active Active Problems Problem Noted Date Diagnosed Date Acute cholecystitis due to biliary calculus 02/2025 Cholecystitis 04/05/2025 Pulmonary infiltrate 03/10/2025 Atelectasis pulmonary 03/10/2025 RONEN (obstructive sleep apnea) 03/10/2025 BOO (acute kidney injury) 03/09/2025 Sepsis associated hypotension 03/09/2025 Lactic acidosis 03/09/2025 Hypovolemia 03/09/2025 Hyperlipidemia 03/08/2025 Troponin level elevated 03/05/2025 Hypotension due to hypovolemia 03/04/2025 Acute cholecystitis 03/03/2025 S/P total knee replacement using cement, left Diabetes mellitus 10/03/2023 Hypertension 10/03/2023 Social History Tobacco Use Types Packs/Day Years Used Date Smoking Tobacco: Never Smokeless Tobacco: Never Tobacco Cessation:Counseling Given: Not Answered Alcohol Use Standard Drinks/Week Comments Not Currently 0 (1 standard drink = 0.6 oz pur e alcohol) [facility] Utilities Answer Date Recorded In the past 12 months has th e [employer], gas, oil, or water [employer] threatened to shut off services in your home? No 04/10/2025 Hunger Vital Sign Answer Date Recorded Within the past 12 months, y ou worried that your food would run out before you got the money to buy more. Never true 04/10/20 Within the past 12 months, t he food you bought just didn't last and you didn't have money to get more. Never true 04/10/2025 PRAPARE - Transportation Answer Date Re corded In the past 12 months, has l ack of transportation kept you from medical appointments or from getting medications? No 02/2025 In the past 12 months, has l ack of transportation kept you from meetings, work, or from getting things needed for daily living? No 04/10/2025 Housing Stability Vital Sign Answer Armand e Recorded In the last 12 months, was t here a time when you were not able to pay the mortgage or rent on time? No 10/03/2023 In the last 12 months, how many places have you lived? 1 10/03/2023 In the last 12 months, was t here a time when you did not have a steady place to sleep or slept in a assisted (including now)? No 10/03/2023 Housing Stability Vital Sign Answer Armand e Recorded In the last 12 months, was t here a time when you were not able to pay the mortgage or rent on time? No 04/10/2025 In the past 12 months, how m any times have you moved where you were living? 0 04/10/2025 At any time in the past 12 m [facility], were you homeless or living in a assisted (including now)? No 04/10/2025 Interpersonal Safety ([facility] HRSN) Answer Date Recorded How often does anyone, inclu ding family and friends, physically hurt you? Never 10/03/2023 Transportation Problems ([facility]) Answer Date Recorded In the past 12 months, has l ack of reliable transportation kept you from medical appointments, meetings, work or from getting things needed for daily living? Not on file 10/03/2023 Food Insecurity Answer Date Recorded Within the past 12 months, y ou worried that your food would run out before you got the money to buy more. 1 04/10/2025 Within the past 12 months, t he food you bought just didn't last and you didn't have money to get more. 1 04/10/2025 Interpersonal Safety Domain Source: IP Abuse Scr eening Answer Date Recorded Physical abuse Denies 04/10/2025 Verbal abuse Denies 04/10/2025 Emotional abuse Denies 04/10/2025 Financial abuse Denies 04/10/2025 Sexual abuse Denies 04/10/2025 Comments No Sex and Gender Information Value Date Recorded Sex Assigned at Female 04/01/2025 10:44 AM EDT Legal Sex Female 1:01 PM EST Gender Identity Not on file Sexual Orientation Not on file Last Filed Vital Signs Vital Sign Reading Time Taken Comments Blood Pressure 124/61 04/23/2025 12:31 PM EDT Pulse 72 04/23/2025 12:31 PM EDT Temperature 36.8 C (98.2 F) 04/13/2025 11:19 AM EDT Respiratory Rate 16 04/13/2025 9:09 AM EDT Oxygen Saturation 96% 04/13/2025 9:09 AM EDT Inhaled Oxygen Concentration - - Weight 95.3 kg (210 lb) 04/23/2025 12:31 PM EDT Height 152.4 cm (5') 04/23/2025 12:31 PM EDT Body Mass Index 41.01 04/23/2025 12:31 PM EDT Plan of Treatment Health Maintenance Due Date Last Done Comments Diabetic foot exam 1959 Lipids 1959 Depression Screen 1961 Diabetic Alb to Cr ratio (uACR) test 1967 Diabetic retinal exam 1967 Hepatitis C screen 1967 Colonoscopy 1994 FIT/FOBT: Average risk 1994 Sigmoidoscopy/CT colonography 1994 DEXA (modify frequency per FRAX score) 2004 Shingles vaccine (1 of 2) 03/09/2013 01/12/2013 DTaP/Tdap/Td vaccine (2 - Td or Tdap) 09/18/2022 09/18/2012 Annual Wellness Visit (Medicare) 10/03/2023 Respiratory Syncytial Virus (RSV) or age 60 yrs+ (1 - 1-dose 75+ series) 2024 Flu vaccine (#1) 06/07/2025 08/16/2024, 04/2023, 10/08/2022, Additional history exists COVID-19 Vaccine (2024- season) 2025 10/06/2021, 01/22/2021, 01/01/2021 Colorectal Cancer Screen 03/25/2026 Fecal-DNA (Cologuard): Average risk 03/25/2026 03/25/2023 A1C test (Diabetic or Prediabetic) 04/13/2026 04/13/2025 GFR test (Diabetes, CKD 3-4, OR last GFR 15-59) 04/13/2026 04/13/2025, 04/12/2025, 04/12/2025, Additional history exists Pneumococcal 50+ years Vaccine Completed 10/24/2017, 08/05/2016 Breast cancer screen Discontinued 06/07/2024, 05/13/2023, 04/26/2022, Additional history exists Hepatitis A vaccine Aged Out No longe r eligible based on patient's age to complete this topic Hepatitis B vaccine Aged Out No longe r eligible based on patient's age to complete this topic Hib vaccine Aged Out No longer eligi ble based on patient's age to complete this topic Meningococcal (ACWY) vaccine Aged Out No longer eligible based on patient's age to complete this topic Meningococcal B vaccine Aged Out No l onger eligible based on patient's age to complete this topic Polio vaccine Aged Out No longer elig ible based on patient's age to complete this topic Medical Devices Implanted Type Area Limnology Teacher Device Identifier Shelf Expiration Date Model / Serial / Lot Cement Bne 40gm Hi Visc Radpq For Rev Surg - [id number] Implanted:Qty: 2 on 10/03/2023 by Aly Higgins MD at [facility] Left: Knee [employer]- 04/06/2026 [id number] / / [id number] Component Pat [id number] Thk8.5mm Knee Poly Huy Conventional - [id number] Implanted:Qty: 1 on 10/03/2023 by Aly Higgins MD at [facility] Left: Knee [employer]- 06/18/2028 [id number] / / [id number] Extension Stem Sz E 5deg L Tibl Knee Huy Annetta Tib Persona - [id number] Implanted:Qty: 1 on 10/03/2023 by Aly Higgins MD at [facility] Left: Knee [employer]- 06/03/2033 [id number] / / [id number] Component Fem Sz 7 Kevin L Knee Co Chrom Huy Cruce Ret Cor - [id number] Implanted:Qty: 1 on 10/03/2023 by Aly Higgins MD at [facility] Left: Knee [employer]- 12/26/2032 [id number] / / [id number] Extension Stem L30mm [id number] Knee Tapr Huy Persona - [id number] Implanted:Qty: 1 on 10/03/2023 by Aly Higgins MD at [facility] Left: Knee [employer]- 07/22/2033 [id number] / / [id number] Psn Mc Ve Asf L 11mm 6-7/Ef - [id number] Implanted:Qty: 1 on 10/03/2023 by Aly Higgins MD at [facility] Left: Knee [employer]- 04/01/2026 [id number] / / [id number] Clip Int Xl Yel Polymer Hem-O-Manolo Ladonna - [id number] Implanted:Qty: 1 on 04/10/2025 by Blaise Chinchilla MD at [facility] N/A: Gallbladder [employer]- 10/06/2029 [id number] / / [id number] Explanted Type Area Limnology Teacher Device Identifier Shelf Expiration Date Model / Serial / Lot Screw Bne L48mm Constrn Cndyl Knee Hex Hd Stem For Leg Nxgn - [id number] Explanted:Qty : 1 on 10/03/2023 by Aly Higgins MD at [facility] Left: Knee [employer]- 07/04/2033 [id number] / / [id number] Screw Bne L48mm Constrn Cndyl Knee Hex Hd Stem For Leg Nxgn - [id number] Explanted:Qty : 1 on 10/03/2023 by Aly Higgins MD at [facility] Left: Knee [employer]- 07/03/2033 [id number] / / [id number] Procedures Procedure Name Priority Date/Time Associated Diagnosis Comments BASIC METABOLIC PANEL Routine 04/13/2025 9:09 AM EDT HEMOGLOBIN A1C Routine 04/13/2025 9:09 AM EDT from Last 3 Months or Most Recently Relevant to Health Maintenance Results * (ABNORMAL) Hemoglobin A1C (04/13/2025 9:09 AM EDT) Hemoglobin A1C 7.6(H) 4.0 - 6.0 % 04/13/2025 9:09 AM EDT [employer] Estimated Avg Glucose 171 mg/dL 04/13/2025 9:09 AM EDT [employer] Comment: The ADA and AACC recommend providing the estimated average glucose result to permit better patient understanding of their HBA1c result. 04/13/2025 9:09 AM EDT 04/13/2025 9:24 AM EDT Sarah Bhatt MD CHEMISTRY ORDERABLES Final R esult [employer] [address] [place] [address], [facility] [phone] * (ABNORMAL) Basic Metabolic Panel (04/13/2025 9:09 AM EDT) Sodium 139 136 - 145 mmol/L 04/13/2025 9:09 AM EDT [employer] Potassium 4.2 3.7 - 5.3 mmol/L 04/13/2025 9:09 AM EDT [facility] Chloride 102 98 - 107 mmol/L 04/13/2025 9:09 AM EDT [employer] CO2 25 20 - 31 mmol/L 04/13/2025 9:09 AM EDT [employer] Anion Gap 12 9 - 16 mmol/L 04/13/2025 9:09 AM EDT [employer] Glucose 183(H) 74 - 99 mg/dL 04/13/2025 9:09 AM EDT [employer] BUN 23 8 - 23 mg/dL 04/13/2025 9:09 AM EDT [facility] Creatinine 0.8 0.6 - 0.9 mg/dL 04/13/2025 9:09 AM EDT [employer] Est, Glom Filt Rate 77 >60 mL/min/1. 73m2 04/13/2025 9:09 AM EDT [employer] Comment: These results are not intended for [...] following therapy that affects renal tubular secretion. Calcium 8.8 8.6 - 10.4 mg/dL 04/13/2025 9:09 AM EDT [employer] Blood BLOOD SPECIMEN / Unknown 04/13/2025 9:09 AM EDT 04/13/2025 9:24 AM EDT us Sarah Bhatt MD CHEMISTRY ORDERABLES [place] [address], [facility] [phone] from Last 3 Months or Most Recently Relevant to Health Maintenance Insurance [address] [place] [address] MEDICARE [employer]ICAL M[employer]UAL MEDICARE [employer] Advance Directives * Full Code (Latest Code Status on File) Date Activated Date Inactivated Comments 04/10/2025 10:05 PM 04/13/2025 7:02 PM * Full Code Date Activated Date Inactivated Comments 03/03/2025 11:34 AM 03/10/2025 3:10 PM * Full Code Date Activated Date Inactivated Comments 10/03/2023 12:10 PM 10/04/2023 4:13 PM Healthcare Agents on File Name Relationship Healthcare Agent Relationshi p Communication Dayo Macias Spouse Primary Decision Maker Ty Colleen Child Secondary Decision Maker Care Teams Audio Experience Expert Relationship Specialty Start Date End Date Wild Stone DO [address] [place] [place] [address] PCP - General Family Medicine 10/04/23
--- OUTSIDE RECORDS SUMMARY | 2025-08-20 07:24 | XMS_ITS | Encounter Summary ---
Author Organization [employer] [facility] [employer] Address [id number] [address] [place] [address] Care Team Providers Care Advice Line Rn Name Role Phone Wild Stone DO Primary Care Provider [phone] Encounter Details Date Type Department Care Team (Late st Contact Info) Description 09/02/2022 Orders Only [facility] Family Medicine [address] [place] [phone] Ref Prov, [place] [address] Social History Tobacco Use Types Packs/Day Years [...] - Family Medicine [address] [place] [phone] Wild Stone DO [address], [place] [address] documented as of this encounter Procedures Procedure Name Priority Date/Time Associated Diagnosis Comments DIABETES EYE EXAM Routine 09/02/2022 documented in this encounter Results * DIABETES EYE EXAM (09/02/2022) us Not In System Ref Prov HEALTH MAINTENANCE Final Result MANUALLY TRANSCRIBED RESULTS documented in this encounter Visit Diagnoses Not on filedocumented in this encounter Care Teams Advice Line Rn Relationship Specialty Start Date End Date Wild Stone DO [address] [place] [address] PCP - General Family Medicine 11/30/17 documented as of this encounter
--- OUTSIDE RECORDS SUMMARY | 2025-08-20 07:24 | XMS_ITS | Encounter Summary ---
Author Organization [employer] Address [id number] [address] [place] [address] Care Team Providers Care Software Engineer Web Services Name Role Phone Chase Wild Dent DO Primary Care Provider [phone] Encounter Details Date Type Department Care Team (Late st Contact Info) Description 03/07/2023 Telephone [facility] - Family Medicine [address] [place] [phone] Lanny Rodas CMA Social History Tobacco Use Types Packs/Day [...] How often do you attend chur or mormonism services? Never 03/10/2023 Do you belong to any clubs o r organizations such as buddhism groups, unions, fraternal or athletic groups, or [...] Answer Date Recorded Total Score 0 03/10/2023 [facility] - Occupational Stress [...] Elvie Stone documented as of this encounter Miscellaneous Notes * Telephone Encounter - Lanny Rodas CMA - 03/07/2023 4:30 PM EDT I called the lab and added the LIPID, they never got lab order for a1c so not correct tube, so willhave to do a finger poke next time in office, or additional labs done. * Telephone Encounter - Wild Stone DO - 03/07/2023 4:30 PM EDT Okay thanks documented in this encounter Plan of Treatment Upcoming Encounters Date Type Department Care Team (Late st Contact Info) Description 10/16/2025 8:30 AM EST Office Visit [facility] - Family Medicine [address] [place] [address] Wild Stone DO [address] [facility] [place] [address] documented as of this encounter Visit Diagnoses Not on filedocumented in this encounter Care Teams Software Engineer Web Services Relationship Specialty Start Date End Date Wild Stone DO [address] [place] [address] PCP - General Family Medicine 11/30/17 documented as of this encounter
--- OUTSIDE RECORDS SUMMARY | 2025-08-20 07:24 | XMS_ITS | Encounter Summary ---
Author Organization [employer] Address [id number] [address] [place] [address] Care Team Providers Care Design Quality Engineer Name Role Phone Wild Stone DO Primary Care Provider [phone] Reason for Visit * Reason Comments Med Refill Encounter Details Date Type Department Care Team (Late Contact Info) Description 09/12/2022 Refill [facility] - Family Medicine [address] [place] [address] Wild Stone DO [address] [place] [address] Social History Tobacco Use Types Packs/Day Years [...] Medicine - Family Medicine [address] [place] [address] Wild Stone DO [address] [facility] [address] documented as of this encounter Visit Diagnoses Not on filedocumented in this encounter Care Teams Design Quality Engineer Relationship Specialty Start Date End Date Wild Stone DO [address] [facility] [place] [address] PCP - General Family Medicine 11/30/17 documented as of this encounter
--- OUTSIDE RECORDS SUMMARY | 2025-08-20 07:27 | XMS_ITS | CCD ---
Author Organization [facility] [place] CliniSyma Care Team Providers Care Operator [employer] Name Role Phone Furlong, Wild G Unavailable Unavailable Scheufele, Mu-Ism Unavailable Unavailable Furlong, DO Wild Primary Care [...] FURLONG, WILD G Consulting Unavailable Furlong, DO Wlid Primary Care Provider [phone] MD Mohan Mccartney Referring Provider MD Rose Ohara Attending Provider Furlong, DO Wild Primary Care Provider [phone] MD Mohan cMcartney Referring Provider MD Rose Ohara Attending Provider RONALDO, ALY E Referring Unavailable RONALDO, ALY E Admitting Unavailable RONALDO, ALY E Attending Unavailable VALENTINE PICKEIRNG Consulting Unavailable WILD CENTENO Primary Care Unavailable Aly Higgins MD Attending Unavail able DO Wild Centeno Primary Care Provider [phone] ELVIRA Simon Zabrina Attending Provider [phone] MD Mohan Mccartney Referring Provider MD Rose Ohara Attending Provider [phone] MD Mohan Mccartney Referring Provider MD [...] Unavailable BLACKSTON, DB T Attending Unavailable RONALDO, LAY E Referring Unavailable BLACKSTONDB T Attending Unavailable BRINK, VIRGINIA Attending Unavailable RONALDO, ALY E Referring Unavailable BRINK, VIRGINIA Attending Unavailable RONALDO, ALY E Referring Unavailable KELBLEY, ZABRINA Attending Unavailable RONALDO, ALY E Referring Unavailable SHAN HASKINS Attending Unavailable KELBLEY, ZABRINA Attending Unavailable RONALDO, ALY E Referring Unavailable KELBLEY, ZABRINA Attending Unavailable RONALDO, ALY E Referring Unavailable KELBLEY, ZABRINA Attending Unavailable RONALDO, ALY E Referring Unavailable FURLONG, WILD G Referring Unavailable FURLONG, WILD G Primary Care Unavailable FURLONG, WILD G Referring Unavailable FURLONG, WILD G Primary Care Unavailable Unallocated , Sincere Provider Primary Care Provi rochelle Furlong DO, Wild G Primary Care Provider Furlong DO, Wild Primary Care Provider Mohan Mccartney MD Referring Provider Rose Ohara MD Attending Provider Furlong DO, Wild G Primary Care Provider Furlong DO, Wild Primary Care Provider Mohan Mccartney MD Referring Provider Rose Ohara MD Attending Provider [phone] Jessica Noble DO Attending Provider Furlong DO, Wild G Primary Care Provider Furlong DO, Wild G Primary Care Provider RAJNI CLINE Attending Unavailable RAJNI CLINE Admitting Unavailable FURLONG, WILD G Primary Care Unavailable JESSICA NOBLE Referring Unavailable MARTA PERKINS ABDUL-HAFILemuel Consulting Unavail able PITER WEEMS Attending Unavail able KENJI-PITER TAPIAER Admitting Unavail able FURLONG, WILD G Primary Care Unavailable LITZY DALLAS Consulting Unavailable DONG ZHENG Consulting Unavailable SHAHRIAR RICKS Consulting Unavailable FURLONG, WILD G Attending Unavailable FURLONG, WILD G Referring Unavailable FURLONG, WILD G Primary Care Unavailable FURLONG, WILD G Referring Unavailable FURLONG, WILD G Primary Care Unavailable Shavon Mustafa MD Attending Provider Furlong DO, Wild Primary Care Provider [phone] FURLONG, WILD Primary Care Physician ALFRED ROMAN Attending Unavailable CATHERINE, ALFRED Attending Unavailable CATHERINE, ALFRED Attending Unavailable CATHERINE, ALFRED Attending Unavailable CATHERINE, ALFRED Attending Unavailable GIUSEPPE JAMA Attending Unavailable FURLONG, WILD G Referring Unavailable [...] Unavailable FURLONG, WILD G Primary Care Unavailable Furlong, Wild Primary Care Unavailable Lue, Shavon M Admitting Unavailable Lue, Shavon M Attending Unavailable Furlong, Wild Primary Care Unavailable Lue, Shavon M Admitting Unavailable Lue, Shavon M Attending Unavailable Furlong, Wild Primary Care Unavailable Lev, Rose Admitting Unavailable Lev, Rose Attending Unavailable Mohan Mccartney Referring Unavailable Lue, Shavon M Admitting Unavailable Lue, Shavon M Attending Unavailable Furlong, Wild Primary Care Unavailable Hay, Jessica E Admitting Unavailable Hay, Jessica E Attending Unavailable Lev, Rose Referring Unavailable Lue, Shavon M. Attending Unavailable Lue, Shavon M. Referring Unavailable Lue, Shavon M. Admitting Unavailable Lue, Shavon M. Attending Unavailable Lue, Shavon M. Attending Unavailable Lue, Shavon M. Attending Unavailable Allergies Allergy Classification Reported Allergen(s) Allergy Type Date of Onset Reaction(s) Facility (1 source) No Alert Propensity to adverse reactions to drug 1 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 (20 sources) amLODIPine; Translations: [AMLODIPINE] Drug Allergy 5 Other (See Comments) [facility] (20 sources) Spironolactone; Translations: [SPIRONOLACTONE ] Drug Allergy 5 Other (See Comments) [facility] (1 source) empagliflozin; Translations: [EMPAGLIFLOZIN] Drug Allergy 4 [facility] Repository Medications Current Medications Medication Drug [...] Probiotic Blend (1 source) Start: 01-16-2025 Acidophilus Probiotic Blend Refill(s) 0 Start Date: 01/16/25 Status: Ordered Repeat number: 1 allopurinol 100 mg oral tablet (20 sources) Xanthine Oxidase Inhibitor Start: 08-07-2025 take 1 tablet by mouth in the morning allopurinoL (ZYLOPRIM) 100 mg tablet Take 1 tablet (100 mg total) by mouth in the morning. 30 tablet 5 08/07/2025 Active Start: 08-07-2025 take 1 tablet by montrell th in the morning allopurinoL (ZYLOPRIM) 100 mg tablet TAKE 1 TABLET BY MOUTH IN THE MORNING 30 tablet 3 08/07/2025 Active Start: 01-16-2025 allopurinol Re fills(s) 0 Start Date: 01/16/25 Status: Ordered Repeat number: 1 Start: 12-23-2023 End: 08-07-2025 take 1 tablet by mouth once daily in the morning Allopurinol 100 mg tablet Active 100 MG PO Every morning July 16, 2025 12:00am Complies with drug therapy amoxicillin 875 mg / clavulanate 125 mg [...] carvedilol 25 mg oral tablet (20 sources) alpha-Adrenerg ic Sophy, beta-Adrenergi c Sophy Start: 08-07-2025 take 1 tablet by mouth in the morning, then take 1 tablet by mouth at bedtime carvediloL (COREG) 25 mg tablet Indications: 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 (CMS-HCC) Take 1 tablet (25 mg total) by mouth in the morning and 1 tablet (25 mg total) before bedtime. 180 tablet 3 08/07/2025 Active Start: 08-07-2025 take 1 tablet by montrell th in the morning, then take 1 tablet by mouth at bedtime carvediloL (COREG) 25 mg tablet Indications: 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 (CMS-HCC) Take 1 tablet (25 mg total) by mouth in the morning and 1 tablet (25 mg total) before bedtime. 180 tablet 1 08/07/2025 Active Start: 04-11-2019 End: 08-07-2025 take 1 tablet by mouth in the morning, then take 1 tablet by mouth at bedtime carvediloL (COREG) 25 mg tablet Indications: 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 (CMS-HCC) Take 1 tablet (25 mg total) by mouth in the morning and 1 tablet (25 mg total) before bedtime. 180 tablet 3 08/20/2024 08/07/2025 Discontinued cholestyramine resin 4000 mg powder for oral suspension (16 sources) Bile Acid Sequestrant Start: 05-15-2025 cholestyramine (QUESTRAN) 4 g packet mix 1 packed DIRECTED and take BY MOUTH DAILY 30 packet 1 05/15/2025 Active Start: 05-14-2025 End: 05-15-2025 take 4 g by mouth in the morning cholestyramine 4 gram powder Take 4 g by mouth in the morning. 239.4 g 1 05/14/2025 05/15/2025 Discontinued ciprofloxacin 500 mg oral tablet (1 source) Quinolone Antimicrobial Start: 07-30-2025 take 1 tablet by mouth every twelve hours clobetasol propionate 0.0005 mg/mg topical ointment (20 sources) Corticosteroid Start: 07-16-2025 Clobetasol 0.05 % ointment Active 1 APPLIC TOPICAL Twice daily as needed for rash July 16, 2025 12:00am Complies with drug therapy Start: 06-14-2024 End: 04-07-2025 clobetasoL (TEMOVATE) 0.05 % ointment Apply 1 Application topically in the morning and 1 Application before bedtime 15 g 04/07/2025 Active colchicine 0.6 mg oral tablet (5 sources) Start: 07-29-2025 End: 08-03-2025 take 1 tablet by mouth in the morning, then take 1 tablet by mouth at bedtime colchicine (COLCRYS) 0.6 mg tablet Take 1 tablet (0.6 mg total) by mouth in the morning and 1 tablet (0.6 mg total) before bedtime. Do all this for 5 days. 10 tablet 07/29/2025 08/03/2025 Active Start: 07-04-2025 End: 07-09-2025 take 1 tablet [...] Drug or medicament (substance) (2 sources) dulaglutide (13 sources) GLP-1 Receptor Agonist Start: 01-16-2025 Trulicity [...] another clinician) gabapentin 100 mg oral capsule (9 sources) Anti-epileptic Agent Start: 07-19-2025 take 1 [...] by sub cutaneous injection once before mealtime Insulin Aspart U-100 (Novolog Flexpen U-100 Insulin) 100 unit/mL (3 mL) insulin pen Active 6 UNIT SUBCUT 3x/Day before meals July 16, 2025 12:00am Complies with drug therapy Start: 03-27-2025 Insulin Aspart FlexPen 100 UNIT/ML [...] 07/17/2025 Discontinued 3 ml insulin degludec 100 unt/ml pen injector (20 sources) Insulin Analog Start: 07-16-2025 Insulin Deglud ec 100 unit/mL (3 mL) insulin pen Active 60 UNIT SUBCUT Every morning July 16, 2025 12:00am Complies with drug therapy Start: 04-24-2025 insulin deglud ec (TRESIBA FLEXTOUCH U-100) 100 unit/mL (3 mL) insulin pen Indications: Type 2 diabetes mellitus with stage 2 chronic kidney disease, with long-term current use of insulin [place] Inject 50 Units under the skin nightly. [...] (20 sources) Angiotensin Converting Enzyme Inhibitor Start: 08-07-2025 take 1 tablet by mouth in the morning lisinopriL (PRINIVIL,ZESTRIL) 40 mg tablet Take 1 tablet (40 mg total) by mouth in the morning. 90 tablet 1 08/07/2025 Active Start: 08-07-2025 take 1 tablet by montrell th in the morning lisinopriL (PRINIVIL,ZESTRIL) 40 mg tablet TAKE 1 TABLET BY MOUTH IN THE MORNING 90 tablet 3 08/07/2025 Active Start: 04-11-2019 End: 08-07-2025 take 1 tablet by mouth in the morning lisinopriL (PRINIVIL,ZESTRIL) 40 mg tablet Take 1 tablet (40 mg total) by mouth in the morning. 90 tablet 1 02/08/2025 08/07/2025 Discontinued magnesium oxide 400 mg oral tablet (20 sources) Start: 01-15-2024 End: 03-10-2025 magnesium oxide 400 mg magnesium tablet Magnesium 90 tablet 1 08/20/2024 Active melatonin 3 mg oral tablet (1 source) Start: 03-08-2025 metFORMIN hydrochloride 1000 mg oral tablet (20 sources) Biguanide Start: 08-07-2025 take 1 tablet by mouth in the morning, then take 1 tablet by mouth at mealtime metFORMIN (GLUCOPHAGE) 1000 mg tablet Take 1 tablet (1,000 mg total) by mouth in the morning and 1 tablet (1,000 mg total) in the evening. Take with meals. 180 tablet 3 08/07/2025 Active Start: 08-07-2025 take 1 tablet by montrell th in the morning, then take 1 tablet by mouth at mealtime metFORMIN (GLUCOPHAGE) 1000 mg tablet Take 1 tablet (1,000 mg total) by mouth in the morning and 1 tablet (1,000 mg total) in the evening. Take with meals. 180 tablet 3 08/07/2025 Active Start: 04-11-2019 End: 08-07-2025 take 1 tablet by mouth in the morning, then take 1 tablet by mouth at mealtime metFORMIN (GLUCOPHAGE) 1000 mg tablet Take 1 tablet (1,000 mg total) by mouth in the morning and 1 tablet (1,000 mg total) in the evening. Take with meals. 180 tablet 3 08/20/2024 08/07/2025 Discontinued midodrine hydrochloride 5 mg oral tablet (1 source) alpha-Adrenergic Agonist Start: 03-04-2025 ondansetron (ZOFRAN-ODT) disintegrating tablet 4 mg (1 source) Start: 04-10-2025 ondansetron (ZOFRAN-ODT) disintegrating tablet 4 mg oxybutynin chloride 5 mg oral tablet (1 source) Cholinergic Muscarinic Antagonist Start: 07-30-2025 pantoprazole 40 mg delayed release oral tablet (20 sources) Proton Pump Inhibitor Start: 08-07-2025 take 1 tablet by mouth in the morning, then take 1 tablet by mouth before mealtime pantoprazole (PROTONIX) 40 mg EC tablet Take 1 tablet (40 mg total) by mouth in the morning and 1 tablet (40 mg total) in the evening. Take before meals. 90 tablet 1 08/07/2025 Active Start: 03-10-2025 End: 08-07-2025 take 1 tablet by mouth in the morning, then take 1 tablet by mouth before mealtime pantoprazole (PROTONIX) 40 mg EC tablet Take 1 tablet (40 mg total) by mouth in the morning and 1 tablet (40 mg total) in the evening. Take before meals. 03/10/2025 08/07/2025 Discontinued (Reorder) Start: 03-07-2025 take 1 tablet by montrell th twice daily before mealtime pantoprazole (PROTONIX) 40 MG tablet Take 1 tablet by mouth 2 times daily (before meals) 30 tablet 3 03/10/2025 Active polyethylene glycol 3350 19532 mg powder for oral solution (1 source) [...] 5 days. 10 tablet 05/03/2025 05/08/2025 Active rosuvastatin calcium 10 mg oral tablet (20 sources) HMG-CoA Reductase Inhibitor Start: 08-07-2025 take 1 tablet by mouth once daily in the morning rosuvastatin (CRESTOR) 10 mg tablet Take 1 tablet (10 mg total) by mouth every morning. 90 tablet 1 08/07/2025 Active Start: 08-07-2025 take 1 tablet by montrell th once daily in the morning rosuvastatin (CRESTOR) 10 mg tablet TAKE 1 TABLET BY MOUTH EVERY MORNING 90 tablet 3 08/07/2025 Active Start: 04-11-2025 take 10 mg by mouth once daily 10 mg, Oral, NIGHTLY, First dose on Tue04/11/25 at 2100, Until Discontinued Start: 04-11-2019 End: 08-07-2025 take 1 tablet by mouth once daily in the morning rosuvastatin (CRESTOR) 10 mg tablet Take 1 tablet (10 mg total) by mouth every morning. 90 tablet 1 02/12/2025 08/07/2025 Discontinued 50 ml sodium chloride 9 mg/m l injection (8 sources) Start: 04-10-2025 Start: 04-10-2025 [...] End: 03-04-2025 suzetrigine (JOURNAVX) 50 mg tablet (14 sources) Start: 07-17-2025 take 1 tablet by [...] 12 (twelve) hours. 5 tablet 07/17/2025 Active tamsulosin hydrochloride 0.4 mg oral capsule (1 source) alpha-Adrenergic Sophy Start: 07-30-2025 take 1 capsule by mouth once daily as needed for pain traMADol hydrochloride 50 mg oral tablet (2 sources) Opioid Agonist Start: 08-16-2024 End: 08-23-2024 take 1 tablet by mouth every eight hours as needed for pain traMADoL (ULTRAM) 50 mg tablet Indications: Lumbar back pain Take 1 tablet (50 mg total) by mouth every 8 (eight) hours as needed for pain for up to 7 days. 21 tablet 08/16/2024 08/23/2024 Active Vit C-E-Zinc Bnq-Pjawma-Vqonce ([facility]) 50 mg-15 unit- 4.5 mg-2.5 mg Tablet,Chewable (12 sources) Start: 04-11-2019 take 1 tablet by mouth once daily Vit C-E-Zinc Gyw-Jyrjdc-Uic hussein ([facility]) 50 mg-15 unit- 4.5 mg-2.5 mg Tablet,Chewabl e Active 1 TAB PO Daily April 11, 2019 8:39am Start: 04-11-2019 End: 07-16-2025 take 1 tablet by mouth once daily Vit C-E-Zinc Wni-Tiauwa-Auuenz ([facility]) 50 mg-15 unit- 4.5 mg-2.5 mg Tablet,Chewable Discontinued 1 TAB PO Daily April 11, 2019 12:00am July 16, 2025 10:54am Start: 04-11-2019 take 1 tablet by montrell th once daily Start: 04-11-2019 take 1 tablet by montrell th once daily Vit C-E-Zinc Xwm-Rpcmds-Vhkiqj ([facility]) 50 mg-15 unit- 4.5 mg-2.5 mg Tablet,Chewable Active 1 TAB PO Daily April 10, 2019 11:00pm Start: 04-11-2019 take 1 tablet by montrell th once daily Vit C-E-Zinc Hmb-Yiyyla-Kxuwpe ([facility]) 50 mg-15 unit- 4.5 [...] Summary: 10 mEq, IntraVENous, PRN, Starting on Tue03/04/25 [...] Oral, EVERY 6 HOURS PRN, Starting on Tue03/03/25 at 1148, Until Discontinued, Pain Mild (1-3), [...] Tue03/03/25 at 1148, Until Discontinued, Nausea, Vomiting [Order 1 End] [Order 2 Start] Name: ondansetron (ZOFRAN) injection 4 mg Signed Summary: 4 mg, IntraVENous, EVERY 6 HOURS PRN, Starting on Tue03/03/25 at 1148, Until Discontinued, Nausea, Vomiting, Administer [...] 2023 11:19am amoxicillin 500 mg oral capsule (12 sources) Penicillin-class Antibacterial Start: 04-11-2019 End: 04-13-2019 [...] 1 tablet by montrell th once daily Aspirin 81 mg Tablet,Delayed Release (Dr/Ec) Active 81 MG PO Daily October 01, 2020 1:00am Complies with drug therapy Start: 04-11-2019 End: 04-13-2019 take 1 tablet [...] mins., Post-op dapagliflozin 5 mg oral tablet (12 sources) Sodium-Glucose Cotransporter 2 Inhibitor Start: 03-31-2022 End: 04-13-2023 take 1 tablet by mouth once daily Dapagliflozin Propanediol (Farxiga) 5 mg Tablet Discontinued 5 MG PO Daily March 31, 2022 12:00am April 13, 2023 9:17am empagliflozin 25 mg oral tablet (12 sources) Sodium-Glucose Cotransporter 2 Inhibitor Start: 10-01-2020 [...] DAILY, First dose (after last modification) on [facility] 04/13/25 at 0900, Until Discontinued Start: 03-09-2025 [...] daily Active hydroCHLOROthiazide 25 mg oral tablet (12 sources) Thiazide Diuretic Start: 04-11-2019 End: 04-13-2023 [...] on Tue04/10/25 at 2044, Until Tue04/10/25 at 2204, Pain Moderate (4-6), allowed for higher pain score per patient request, Phase I - Initial therapy for moderate pain., PACU only Start: 03-06-2025 Start: 03-04-2025 End: 03-04-2025 Start: 03-04-2025 End: 03-04-2025 Start: 03-03-2025 End: 03-06-2025 3 ml insulin detemir 100 unt/ml pen injector (12 sources) Insulin Analog Start: 04-11-2019 End: 03-31-2022 [...] End: 08-16-2024 15 mg, intramuscular, Once, On Kirti 08/16/24 at 1600, For 1 dose, Look-alike/sound-alike medication - verify indication for use. Duration of therapy is not to exceed 5 days. Maximum recommended dose + 120mg/24 hours. Start: 08-16-2024 End: 08-16-2024 ketorolac (TORADOL) injectio n 15 mg 50 ml magnesium sulfate 40 mg/ml injection (3 sources) Start: 04-11-2025 End: 04-11-2025 2,000 mg, IntraVENous, at 25 mL/hr, Administer over 2 Hours, ONCE, On Kirti 04/11/25 at 0000, For 1 dose, Recommended infusion rate not to exceed 1,000 mg (milligrams) per hour. Start: 03-10-2025 End: 03-10-2025 Start: 01-16-2025 magnesium sulf ate Refills(s) 0 Start Date: 01/16/25 Status: Ordered Repeat number: 1 meloxicam 7.5 mg oral tablet (12 sources) Nonsteroidal Anti-inflammatory Drug Start: 03-23-2021 End: [...] chloride 20 meq extended release oral tablet (20 sources) Start: 03-10-2025 End: 03-10-2025 Start: 03-03-2025 End: 03-04-2025 Start: 04-11-2019 End: 12-26-2024 take 1 tablet by mouth once daily Potassium Chloride 20 mEq tablet extended release Discontinued 20 MEQ PO Daily April 11, 2019 12:00am December 26, 2024 2:03pm spironolactone 25 mg oral tablet (20 sources) [...] End: 03-07-2025 (1 source) Start: 03-04-2025 End: 03-07-2025 (1 source) Start: 03-04-2025 End: 03-04-2025 Problems [...] melanoma] Onset: 08-21-20 20 02-09-2021 Chronic Osteoarthritis (20 sources) Osteoarthritis of left knee joint; Translations: [Unilateral primary osteoarthritis, left knee] Onset: 10-24-20 17 12-14-2023 Chronic Osteoporosis (1 source) Osteoporosis 01-16-2025 Chronic [...] (BMI) of 40.0 to 44.9 in adult [place] 06-17-2025 Chronic Other nutritional; endocrine; and metabolic [...] collapse (1 source) Atelectasis; Translations: [Atelectasis] Onset: 03-10-2003-10-2025 Episodic Residual codes; unclassified (4 sources) Obstructive [...] sources) Sepsis; Translations: [Sepsis, unspecified organism] Onset: 03-09-2003-09-2025 Episodic Skin and subcutaneous tissue infections (1 [...] Translations: [Low back pain, unspecified] Onset: 08-16-20 24 Unclassified (1 source) sciatica right side Onset: 08-16-20 24 Unclassified (2 sources) Office to call for cystoscopy, stent removal in 2 weeks Past or Other Problems Problem Classification Problem [...] Resolved: 07-17-2025 03-20-2024 Other aftercare (3 sources) 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; Translations: [PENITENTIARY CURRENT [...] Test Name Value Interpretation Reference Range Facility Inpatient Patient Summaryon 08-12-2025 Inpatient Patient Summary Inpatient Patient Summary [place] [id number] Clinical Summary Person Information Name: TOSHA MCNEAL Age: 74 Years : 1950 Sex: Female PCP: WILD CENTENO DO Marital Status: Race: White Ethnicity: Non- or Language: Lithuanian Visit Id: Visit Reason: RIGHT HYDROURETERONEPHROSIS Speciality: Acuity: Enc Type: Outpatient Med Service: Surgery Arrival: 08/12/2025 09:27:55 Discharge: Dispo Type: Address: [address] [place] [phone] Provider Notes: Diagnosis: Encounter for removal of ureteral stent; Hydronephrosis due to ureteral stricture Problems Active RONEN (obstructive sleep apnea) Morbid obesity with BMI of 40.0-44.9, adult History of kidney stones Hypertension Gout Diabetes type 2 Arthritis Arm fracture Pilonidal cyst Osteoporosis Hypercholesteremia Hydroureteronephrosis Smoking Status: Functional Status: Sensory Deficits: History of Falls: Mobility Assistance Prior to Admission: ADLs: Current Level of Assistance for Self-Care/Mobility: Cognitive Status: Allergies amLODIPine spironolactone Laboratory or Other Results This Visit (last charted value for your 08/12/2025 visit) No Laboratory or Other Results This Visit Measurements: Height: 153 cm Weight: 97 kg Blood Pressure: Not Valued / Not Valued BMI: 41.44 kg/m2 Procedures No Procedures Performed or Documented Immunizations No Immunizations Documented This Visit Final Med List: allopurinol amlodipine (amLODIPine 5 mg Tab) 1 Tablets. aspirin 81 Milligram By Mouth every day. carvedilol (carvedilol 25 mg Tab) 1 Tablets. dulaglutide (Trulicity Pen) furosemide (furosemide 40 mg Tab) 1 Tablets. insulin isophane (Novolin N) lactobacillus acidophilus (Acidophilus Probiotic Blend) lisinopril (lisinopril 40 mg Tab) 1 Tablets. magnesium sulfate metformin (metformin 1000 mg Tab) 1 Tablets. rosuvastatin (rosuvastatin 10 mg Tab) 1 Tablets. Care Team Members: Attending Physician: Shavon Mustafa MD Consulting Physician: Referring Physician: Shavon Mustafa MD Follow up: With: Address: When: Shavon Mustafa [address] [place] [phone] Business (1) Comments: Office will call with results to renal US in 6-8 weeks. Patient Education Information: EU - Cystoscopy with Stent Removal Discharge Instructions (CUSTOM) [facility] Main OR Intraoperative Recor don 08-12-2025 Main OR Intraoperative Record Main OR Intraoperative Record IntraOp Document Type FTURO Summary Primary Physician: Shavon Mustafa MD Finalized Date/Time: 08/12/25 10:33:29 Pt. Name: TOSHA MCNEAL/Sex: 1950 Female Med Rec #: [id number] Physician: Shavon Mustafa MD Financial #: [id number] Pt. Type: O Room/Bed: / Admit/Disch: 08/12/25 09:27:55 - Institution: Case Times FTURO Entry 1 Patient Times In Room 08/12/25 10:21:00 Out Room 08/12/25 10:33:00 Procedure Times Start 08/12/25 10:27:00 Stop 08/12/25 10:29:00 Anesthesia Times Last Modified By: Darci Sequeira 08/12/25 10:33:25 Case Attendance FTURO Entry 1 Entry 2 Entry 3 Case Attendee Shavon Mustafa MD, Terry T Ott RN, Yesy Leyva Role Performed Surgeon - Primary Welder Experimental - Primary Welder Experimental - Primary Time In 08/12/25 10:27:00 08/12/25 10:21:00 08/12/25 10:21:00 Time Out 08/12/25 10:30:00 08/12/25 10:33:00 08/12/25 10:33:00 Procedure CYSTOSCOPY LOCAL WITH CYSTOSCOPY LOCAL WITH CYSTOSCOPY LOCAL WITH STENT REMOVAL(Right) STENT REMOVAL(Right) STENT REMOVAL(Right) Comments ORIENTING Last Modified By: Darci Sequeira Terry T Sweene, Terry T 08/12/25 10:33:26 08/12/25 10:33:26 08/12/25 10:33:26 Entry 4 Case Attendee Edilia Magallanes CST Role Performed Scrub - Primary Time In 08/12/25 10:21:00 Time Out 08/12/25 10:33:00 Procedure CYSTOSCOPY LOCAL WITH STENT REMOVAL(Right) Comments Last Modified By: Darci Sequeira 08/12/25 10:33:26 Surgical Procedures FTURO Entry 1 Procedure Description Procedure CYSTOSCOPY LOCAL WITH Modifiers Right STENT REMOVAL Surgeon Description CYSTO RIGHT STENT REMOVAL Primary Procedure Yes Primary Surgeon Ramsey JUAREZ, Shavon Lin Start 08/12/25 10:27:00 Stop 08/12/25 10:29:00 Anesthesia Type Local Surgical Service Urology Wound Class 2 - Clean-Contaminated Last Modified By: Darci Sequeira 08/12/25 10:29:35 General Case Data FTURO Pre-Care Text: Classifies surgical wound, implements aseptic technique, initiates traffic control Entry 1 Case Information OR URO 1 FT Case Level None Wound Class 2 - Clean-Contaminated Specialty Urology Preop Diagnosis RIGHT Postop Same As Preop Yes HYDROURETERONEPHROSIS Postop Diagnosis RIGHT Outcomes Met? Yes HYDROURETERONEPHROSIS Last Modified By: Darci Sequeira 08/12/25 10:22:53 Post-Care Text: The patient is free from signs and symptoms of infection EU IntraOp - FTURO Pre-Care Text: Implements protective measures prior to operative or invasive procedure, confirms identity before the operative or invasive procedure, verifies operative procedure, surgical site, and laterality Entry 1 EU Perioperative Protocols Procedure(s) CYSTOSCOPY LOCAL WITH Patient Identity Birthday, ID Band STENT REMOVAL(Right) Verified (select at Check, Patient least 2): Participation Consents / H and P H&P, Surgery/Procedure Operative Site N/A Verified Consent Marking Verified Surgical Site Yes Laterality Verified Yes Verified Procedure Verified Yes Correct Patient Yes Position Verified Availability Equipment, Medication Time Out Ramsey JUAREZ, Shavon Lin, Verified (If Participants Darci Sequeira, Danny Applicable) RN, Sona Potts CST, Edilia Drake Time Out Complete 08/12/25 10:27:00 Allergies Reviewed? Yes Allergies Reviewed Self/Patient With Body Position Supine Prep Area PERINEUM Prep Agents Hibiclens Skin. Condition Intact, [place], Warm, & Dry Additional None Specimens Collected Vitals - EU Blood Pressure 183/75 Pulse 68 bpm Respirations 18 br/min SPO2 96 % EBL 0 I&O - EU Total Intake 0 mL Total Output 0 mL Outcomes Met? Yes Last Modified By: Darci Sequeira 08/12/25 10:29:06 Post-Care Text: The patient is free from signs and symptoms of injury caused by extraneous objects General Comments: RIGHT SIDE IS CORRECT SIDE Implant Log FTURO Pre-Care Text: Records devices implanted during the operative or invasive procedure Entry 1 Implant/Explant Explant Implant Identification Description RIGHT URETERAL STENT Usage Data Implant Site RIGHT URETER Quantity 1 Outcomes Met? Yes Last Modified By: Darci Sequeira 08/12/25 10:30:20 Post-Care Text: The patient is free from signs and symptoms of injury caused by extraneous objects General Comments: PLANNED EXPLANT BY DR. MUSTAFA. Daniela GONZALEZ Sign Out FTURO Entry 1 Before Patient Leaves OR Nurse verbally Yes Nurse verbally n/a confirms with the confirms with the team the name of team that the procedure(s) instrument, sponge, recorded and needle counts are correct (or N/A) Nurse verbally n/a Nurse verbally Yes confirms with the confirms with the team how the team whether there specimen is labeled are any equipment (including patient problems to be name), if applicable addressed Sign Out Complete 08/12/25 10:30:00 Last Modified By: Darci Sequeira 08/12/25 10:30:32 Case Comments Finalized By (more content not included)... Normal [facility] Operative Reporton Operative Report Operative Report Patient: TOSHA MCNEAL Age: 74 years Sex: Female : 1950 Associated Diagnoses: None Author: Shavon Mustafa MD Procedure Operative Information Details: Date/ Time: 08/12/2025 10:33:00. Pre-Op Dx: Encounter for removal of ureteral stent (LUA70-WV Z46.6, Discharge, Medical), Hydronephrosis due to ureteral stricture ([id number] N13.1, Discharge, Medical). Post-Op Dx: Same. Anesthesia Type: Local. Procedure: Local Cystoscopy with Stent Removal. Complications: None. Risks/Benefits/Informed Consent: Surgical risks, benefits, details of the procedure have been explained to the patient, Full informed consent has been obtained. Intraoperative Information Prepped: The patient was placed in supine position (Frog-leg), The patient was prepped with the Betadine solution (Hibiclens). Anesthesia: 2% Xylocaine Jelly per urethra. Procedure: Cystoscopy and Right Stent Removal, The flexible Cystoscope was passed in retrograde fashion into the bladder without difficulty, The bladder was viewed in entirety and found to be without tumors or stones, The stent was then grasped and removed in its entirety. Specimens Removed: None. Devices Implanted: None. Postoperative Information Discharge: The patient tolerated the procedure well and was subsequently discharged home, Obtain renal ultrasound 6-8 weeks to reevaluate hydronephrosis, call with results. If persistent, but patient remains asymptomatic with preserved renal function, recommend renal ultrasound in 6 months with follow-up appointment.. Normal [facility] Comment on above: Result Comment: Elec tronically Signed By: Shavon Mustafa MD\.br\Date and Time Signed: 08/12/25 10:35 EDT Outpatient Surgery Discharge Instructionon 10-06-2025 Outpatient Surgery Discharge Instruction Outpatient Surgery Discharge Instruction [address] [address] Patient Discharge Instructions PERSON INFORMATION Name: TOSHA MCNEAL Date of : 1950 Current Date: 08/12/2025 10:33:02 PHYSICIANS Admitting Physician: Shavon Mustafa MD Comment: Discharge Diagnosis: Encounter for removal of ureteral stent; Hydronephrosis due to ureteral stricture TOSHA MCNEAL has been given the following list of follow-up instructions, prescriptions, and patient education materials: IF UNABLE TO CONTACT YOUR PHYSICIAN AND YOU FEEL IT IS AN EMERGENCY, GO TO THE NEAREST EMERGENCY ROOM OR CALL 911 Follow up: With: Address: When: Shavon Mustafa [address] [place] [address] [phone] Business (1) Comments: Office will call with results to renal US in 6-8 weeks. Comment: PATIENT EDUCATION INFORMATION Instructions: Cystoscopy with Stent Removal ??? Voiding after the procedure: there may be some pain, burning, urgency, frequency and blood tinged urine following the procedure. These symptoms usually resolve within 2-5 days. Drink the amount of fluid it takes to keep the urine pink to yellow or clear in color. Drinking enough water and fluids will help to ease any discomfort after your procedure. ??? If you are having problems that seem out of the ordinary, please call. ??? If unable to contact your physician and you feel it is an emergency, go to the nearest emergency room or call 911 ??? Diet ??? you may resume your normal diet. ??? Activity ??? you may resume your normal activities ??? Call if you have a fever over 100 degrees. ??? Tylenol alternated with ibuprofen can be taken for pain. AZO can be purchased over the counter for burning with urination. This will make your urine orange. I, TOSHA MCNEAL, have received the attached patient education materials/instructions and have verbalized understanding: May we do a follow up call? Yes No I was present when discharge instructions were given Patient Signature ___ Date Clinican/Nurse Signature Date You may receive a survey from [employer] asking you to rate your care experience. Your feedback is important and will help us understand what we do well and how we can improve the quality of care we provide to you, your loved ones and our community. It???s an honor to serve you. Thank you for choosing [facility] Normal [facility] Capillary blood glucose kandi urement by glucometer (mass/volume)Ordered By: Shavon Mustafa on 07-30-2025 Glucose [Mass/Vol] 158 mg/dL Normal [facility] Comment on above: Random Glucose Refer ence Range is dependent on time and content of last meal. Glucose of more than 200 mg/dL in a nonstressed, ambulatory subject supports the diagnosis of Diabetes Mellitus. Result Comment: [place] om Glucose Reference Range is dependent on time and content of last meal. Glucose of more than 200 mg/dL in a nonstressed, ambulatory subject supports the diagnosis of Diabetes Mellitus. Performed By: #### G BERNY ####Point of Care testing, [place] urethrocystogram retroon 07-30-2025 [place] urethrocystogram retro [address] [place] [address] Fluoroscopy Report Signed Patient: Tosha Mcneal MR#: [id number] : 1950 Acct:[id number] Age/Sex: 74 / F ADM Date: 07/30/25 Loc: [place] Room: Type: [facility] Attending Dr: Shavon Mustafa MD Copies to: Shavon Mustafa MD Ordering Provider: Shavon Mustafa MD Date of Service: 07/30/25 FL/FL urethrocystogram retro: RT RETROGRADE Intraoperative study. Reason for exam: Right stent. Findings: 16 images were obtained intraoperatively. Contrast is seen within the right collecting system with subsequent stent placement Cumulative Air Kerma in mGy: 19 mGy FL/FL urethrocystogram retro Impression: Intraoperative study. Impression dictated by: Miki Kruse Jr., D.OPablo 07/30/2025 1:27 PM Dictation Location: [place] [address] Transcribed By: [facility] 07/30/25 1327 Dictated By: Miki Kruse Jr, DO 07/30/25 1326 Signed By: 07/30/25 1327 Normal [facility] Glucose Poct Glucometerson 0 07-30-2025 Commemt1 Glu2: Cleaned Meter Normal [facility] Comment on above: Result Comment: PERF ORMED BY: [place] [address] PATHOLOGIST ENDOCRINOLOGY SPECIALIST MANN HOLLAND M.D. Performed By: #### G LULS ####Point of Care testing, Commemt1 Glu2: Cleaned Meter Normal [facility] Comment on above: Result Comment: PERF ORMED BY: [address] [address] PATHOLOGIST ENDOCRINOLOGY SPECIALIST MANN HOLLAND M.D. Performed By: #### G LULS #### Point of Care testing , Glucose [Mass/Vol] 176 mg/dL Normal [facility] Comment on above: Result Comment: [place] Glucose Reference Range is dependent on time and content of last meal. Glucose of more than 200 mg/dL in a nonstressed, ambulatory subject supports the diagnosis of Diabetes Mellitus. Performed By: #### G BERNY #### Point of Care testing , Heladio 07-30-2025 L ----- Specimen: [id number] Received: 07/31/25 Status: FANI Casey Num: [id number] Spec Type: Cytology Subm Dr: Shavon Mustafa MD Tissues: A URINECYTO (RT URETERAL DISTAL BRUSH) Procedures: Cyto Prepstain, PAPSTN Age/ Patient Sex Location Account Attending Physician Tosha Mcneal 74/F [place] [id number] Shavon Mustafa MD SPEC NUM: [id number] RECD: 07/31/25 STATUS: FANI CASEY NUM: [id number] OZZIE: 07/30/25 [facility] [address]: Shavon Mustafa MD ENTERED: 07/31/[address] [facility] [address]: SPEC TYPE: Cytology DEPT: [facility] ENTERED BY: [id number] RECV BY: [id number] ORDERED: Cyto Prepstain, PAPSTN ORDERED: Cyto Prepstain, PAPSTN Pathological Diagnosis Right ureteral distal brush biopsy: Cohesive clusters of urothelial cells present; high-grade malignant features not identified. Comment: Cohesive clusters of urothelial cells may be associated with stones, inflammatory conditions , instrumentation effect or low-grade neoplasm. Clinical Information R Hyro ureteral nephrosis Gross Description Received fresh is 1 Cornelius said to have been obtained as R Ureteral Distal Stricture Cornelius Biopsy. Thinprep is prepared for microscopic examination. (RV/il) Microscopic Description Microscopic examination was completed. Specimen: [id number] Received: 07/31/25 Status: FANI Casey Num: [id number] Spec Type: Cytology Subm Dr: Shavon Mustafa MD Tissues: A URINECYTO (RT URETERAL DISTAL BRUSH) Procedures: Cyto Prepstain, PAPSTN Patient: Tosha Mcneal [id number] (Continued) Specimen: [id number] Received: 07/31/25 (Continued) Signed (signature on file) Ricki Martinez JR, MD 08/01/25 1513 Specimen: C2 Received: 07/31/25 Status: FANI Renaemike Num: [id number] Spec Type: Cytology Subm Dr: Shavon Mustafa MD Tissues: A URINECYTO (RT URETERAL DISTAL BRUSH) Procedures: Cyto Prepstain, PAPSTN Patient: Tosha Mcneal Ilan [id number] (Continued) Specimen: [id number] Received: 07/31/25 (Continued) CPT Codes 57432 Specimen: [id number] Received: 07/31/25 Status: FANI Casey Num: [id number] Spec Type: Cytology Subm Dr: Shavon Mustafa MD Tissues: A URINECYTO (RT URETERAL DISTAL BRUSH) Procedures: Cyto Prepstain, PAPSTN Patient: Tosha Mcneal [id number] (Continued) Signed (signature on file) Ricki Martinez JR, MD 08/01/25 6655 Normal [facility] No Panel InformationOrdered By: Shavon Mustafa on 07-30-2025 Bedside Glucose Comment Glu2: cleaned meter [facility] POCT Hemoglobin A1con 2024 HbA1c (Bld) [Mass fraction] 7 % 4 - 7 % [facility] Bacteria [Presence] in Urine sediment by Light microscopyOrdered By: Shavon Mustafa on 07-16-2025 Bacteria LM Ql (Urine sed) 1+ [HPF] High None Seen [facility] Basic Metabolic Panelon GFR/1.73 sq M.predicted MDRD (S/P/Bld) [Vol rate/Area] mL/min/{1.73_m2} Normal [facility] Comment on above: Performed By: #### B MP, PTT, CBC, PT #### [facility] [address] [place] [address] [place] Basophils [#/volume] in Bloo d by Automated countOrdered By: Shavon Mustafa on 07-16-2025 Basophils (Bld) [#/Vol] 0.1 10*3/uL Normal 0.0-0.2 [facility] Comment on above: Result Comment: PERF ORMED BY: [place] [address] PATHOLOGIST ENDOCRINOLOGY SPECIALIST MANN HOLLAND M.D. Performed By: #### B MP, PTT, CBC, PT #### [facility] [address] [place] [address] [place] Basophils/100 leukocytes in Blood by Automated countOrdered By: Shavon Mustafa on 07-16-2025 Basophils/100 WBC (Bld) 1.2 % Normal . [facility] Comment on above: Performed By: #### B MP, PTT, CBC, PT #### [facility] [address] [place] [address] [place] Bilirubin Test strip Ql (U)O rdered By: Shavon Mustafa on 07-16-2025 Bilirubin Ql (U) 1+ High Negative [facility] Calcium [Mass/volume] in Ser um or PlasmaOrdered By: Shavon Mustafa on 07-16-2025 Calcium [Mass/Vol] 8.4 mg/dL Low 8.6-10.3 [facility] Comment on above: Result Comment: PERF ORMED BY: [place] [address] PATHOLOGIST ENDOCRINOLOGY SPECIALIST MANN HOLLAND M.D. Performed By: #### B MP, PTT, CBC, PT #### [address] Carbon dioxide, total [Moles /volume] in Serum or PlasmaOrdered By: Shavon Mustafa on 07-16-2025 CO2 [Moles/Vol] 32.9 mmol/L High 21.0-31.0 [facility] Comment on above: Performed By: #### B MP, PTT, CBC, PT #### [address] Chloride [Moles/volume] in S marlena or PlasmaOrdered By: Shavon Mustafa on 07-16-2025 Chloride [Moles/Vol] 97 mmol/L Low 98-[address] [facility] Comment on above: Performed By: #### B MP, PTT, CBC, PT #### [address] Color of Urine by AutoOrdere d By: Shavon Mustafa on 07-16-2025 Color (U) Yellow Normal Yellow [facility] Comment on above: Order Comment: Name Collection Type:: Clean-Voided Midstream Performed By: #### C UU, ADDONUAPLUS #### [address] Complete Blood Count Auto Di ffon 07-16-2025 Mean Corpuscular HGB Conc 32.6 g/dL Normal 32.0-35.0 [facility] Comment on above: Performed By: #### B MP, PTT, CBC, PT #### [address] NRBC% 0.1 /100{WBC} Normal 0-0.5 [facility] Comment on above: Performed By: #### B MP, PTT, CBC, PT #### [facility] [address] White Blood Count 8.5 [CFU]/mL Normal 3.8-11.6 [facility] Comment on above: Performed By: #### B MP, PTT, CBC, PT #### [address] Creatinine [Mass/volume] in Serum or PlasmaOrdered By: Shavon Mustafa on 07-16-2025 Creatinine [Mass/Vol] 0.88 mg/dL Normal 0.60-1.20 [facility] Comment on above: Performed By: #### B MP, PTT, CBC, PT #### [address] Dipstick and Microscopicon 0 07-16-2025 Bacteria,Urine 1+ [HPF] Normal None Seen [facility] Comment on above: Order Comment: Name Collection Type:: Clean-Voided Midstream Result Comment: PERF ORMED BY: [place] [address] PATHOLOGIST ENDOCRINOLOGY SPECIALIST MANN HOLLAND M.D. Performed By: #### C UU, ADDONUAPLUS #### [place] [address] [place] Bilirubin,Urine 1+ Normal Negative [facility] Comment on above: Order Comment: Name Collection Type:: Clean-Voided Midstream Performed By: #### C UU, ADDONUAPLUS #### [place] [address] [place] Glucose Ql (U) Normal Normal Normal [facility] Comment on above: Order Comment: Name Collection Type:: Clean-Voided Midstream Performed By: #### C UU, ADDONUAPLUS #### [place] [address] [place] Nitrite,Urine Negative Normal Negative [facility] Comment on above: Order Comment: Name Collection Type:: Clean-Voided Midstream Performed By: #### C UU, ADDONUAPLUS #### [place] [id number] [place] Occult Blood,Urine Negative Normal Negative [facility] Comment on above: Order Comment: Name Collection Type:: Clean-Voided Midstream Result Comment: PERF ORMED BY: [place] [address] PATHOLOGIST ENDOCRINOLOGY SPECIALIST MANN HOLLAND M.D. Performed By: #### C UU, ADDONUAPLUS #### [address] Othe Crystals,Urine Normal [facility] Comment on above: Order Comment: Name Collection Type:: Clean-Voided Midstream Result Comment: star ch crystals noted Performed By: #### C UU, ADDONUAPLUS #### [address] RBC LM.HPF (Urine sed) [#/Area] 0 /[HPF] Normal 0-4 [facility] Comment on above: Order Comment: Name Collection Type:: Clean-Voided Midstream Performed By: #### C UU, ADDONUAPLUS #### [address] Specificy [place],Urine 1.025 Normal 1.001-1.030 [facility] Comment on above: Order Comment: Name Collection Type:: Clean-Voided Midstream Performed By: #### C UU, ADDONUAPLUS #### [address] Squamous Epithelial Cell,Urine 10-19 Normal 0-2 [facility] Comment on above: Order Comment: Name Collection Type:: Clean-Voided Midstream Performed By: #### C UU, ADDONUAPLUS #### [address] Urobilinogen,Urine 2 mg/dL Normal Normal [facility] Comment on above: Order Comment: Name Collection Type:: Clean-Voided Midstream Performed By: #### C UU, ADDONUAPLUS #### [address] WBC LM.HPF (Urine sed) [#/Area] 0 /[HPF] Normal 0-4 [facility] Comment on above: Order Comment: Name Collection Type:: Clean-Voided Midstream Performed By: #### C UU, ADDONUAPLUS #### [address] Eosinophils [#/volume] in Bl ood by Automated countOrdered By: Shavon Mustafa on 07-16-2025 Eosinophils (Bld) [#/Vol] 0.1 10*3/uL Normal 0.0-0.45 [facility] Comment on above: Performed By: #### B MP, PTT, CBC, PT #### [place] [address] [place] Eosinophils/100 leukocytes i n Blood by Automated countOrdered By: Shavon Mustafa on 07-16-2025 Eosinophils/100 WBC (Bld) 1.2 % Normal . [facility] Comment on above: Performed By: #### B MP, PTT, CBC, PT #### [address] Epithelial cells.squamous [# /area] in Urine sediment by Microscopy high power fieldOrdered By: Shavon Mustafa on 07-16-2025 Epithelial cells.squamous LM.HPF (Urine sed) [#/Area] 10-19 [HPF] High 0-2 [facility] Erythrocyte distribution wid th [Ratio] by Automated countOrdered By: Shavon Mustafa on 07-16-2025 Erythrocyte distribution width (RBC) [Ratio] 16.4 % High 11.9-15.3 [facility] Comment on above: Performed By: #### B MP, PTT, CBC, PT #### [facility] [address] [place] [address] [place] Erythrocytes [#/area] in Uri ne sediment by Microscopy high power fieldOrdered By: Shavon Mustafa on 07-16-2025 RBC LM.HPF (Urine sed) [#/Area] 0-1 [HPF] 0-4 [facility] Erythrocytes [#/volume] in B lood by Automated countOrdered By: Shavon Mustafa on 09-09-2025 RBC (Bld) [#/Vol] 4.60 10*6/uL Normal 3.60-5.00 [facility] Comment on above: Performed By: #### B MP, PTT, CBC, PT #### [facility] [address] Glomerular filtration rate [ Volume Rate/Area] in Serum, Plasma or Blood by CreatinineOrdered By: Shavon Mustafa on 07-16-2025 Glomerular filtration rate [Volume Rate/Area] in Serum, Plasma or Blood by Creatinine > 60.0 mL/Min [facility] Glucose [Mass/volume] in Ser um or PlasmaOrdered By: Shavon Mustafa on 07-16-2025 Glucose [Mass/Vol] 173 mg/dL High 70-100 [facility] Comment on above: ADA recommended refe rence rangeRandom Glucose Reference Range is dependent on time and content of last meal. Glucose of more than 200 mg/dL in a nonstressed, ambulatory subject supports the diagnosis of Diabetes Mellitus. Result Comment: [place] om Glucose Reference Range is dependent on time and content of last meal. Glucose of more than 200 mg/dL in a nonstressed, ambulatory subject supports the diagnosis of Diabetes Mellitus. ADA recommended reference range Performed By: #### B MP, PTT, CBC, PT #### [facility] [address] Hematocrit [Volume Fraction] of Blood by Automated countOrdered By: Shavon Mustafa on 07-16-2025 Hematocrit (Bld) [Volume fraction] 40.4 % Normal 34.0-46.4 [facility] Comment on above: Performed By: #### B MP, PTT, CBC, PT #### [facility] [address] Hemoglobin [Mass/volume] in BloodOrdered By: Shavon Mustafa on 07-16-2025 Hemoglobin (Bld) [Mass/Vol] 13.2 g/dL Normal 11.8-15.4 [facility] Comment on above: Performed By: #### B MP, PTT, CBC, PT #### [facility] [address] [place] [address] [place] INR in Platelet poor plasma by Coagulation assayOrdered By: Shavon Mustafa on 07-16-2025 INR Coag (PPP) [Relative time] 1.1 {INR} Normal [facility] Comment on above: INR Therapeutic [...] valves: 3 - 4.5 Performed By: #### B MP, PTT, CBC, PT ####[facility] [place] [address] [place] Ketones [Presence] in Urine by Test stripOrdered By: Shavon Mustafa on 07-16-2025 Ketones Ql (U) Trace Normal Negative [facility] Comment on above: Order Comment: Name Collection Type:: Clean-Voided Midstream Performed By: #### C UU, ADDONUAPLUS #### [facility] [address] [place] [address] [place] Leukocyte esterase [Presence ] in Urine by Test stripOrdered By: Shavon Mustafa on 07-16-2025 Leukocyte esterase Test strip Ql (U) 2+ Normal Negative [facility] Comment on above: Order Comment: Name Collection Type:: Clean-Voided Midstream Performed By: #### C UU, ADDONUAPLUS #### [facility] [address] [place] [address] [place] Leukocytes [#/area] in Urine sediment by Microscopy high power fieldOrdered By: Shavon Mustafa on 07-16-2025 WBC LM.HPF (Urine sed) [#/Area] 0-1 [HPF] 0-4 [facility] Leukocytes [#/volume] correc jin for nucleated erythrocytes in Blood by Automated counOrdered By: Shavon Mustafa on 07-16-2025 WBC corrected for nucl RBC Auto (Bld) [#/Vol] 8.5 10*3/uL 3.8-11.6 [facility] Leukocytes [#/volume] in Blo od by Automated countOrdered By: Shavon Mustafa on 07-16-2025 WBC (Bld) [#/Vol] 8.5 10*3/uL Normal 3.8-11.6 [facility] Comment on above: Performed By: #### B MP, PTT, CBC, PT #### [facility] [address] [place] [address] [place] Lymphocytes [#/volume] in Bl ood by Automated countOrdered By: Shavon Mustafa on 07-16-2025 Lymphocytes (Bld) [#/Vol] 1.7 10*3/uL Normal 1.00-4.8 [facility] Comment on above: Performed By: #### B MP, PTT, CBC, PT #### [facility] [address] [place] [address] [place] Lymphocytes/100 leukocytes i n Blood by Automated countOrdered By: Shavon Mustafa on 07-16-2025 Lymphocytes/100 WBC (Bld) 20.2 % Normal . [facility] Comment on above: Performed By: #### B MP, PTT, CBC, PT #### [facility] [address] [place] [address] [place] MCH [Entitic mass] by Automa jin countOrdered By: Shavon Mustafa on 07-16-2025 MCH (RBC) [Entitic mass] 28.6 pg Normal 24.7-34.3 [facility] Comment on above: Performed By: #### B MP, PTT, CBC, PT #### [facility] [address] [place] [address] MCHC Auto (RBC) [Mass/Vol]Or dered By: Shavon Mustafa on 07-16-2025 MCHC (RBC) [Mass/Vol] 32.6 g/dL 32.0-35.0 [facility] MCV [Entitic volume] by Auto mated countOrdered By: Shavon Mustafa on 07-16-2025 MCV (RBC) [Entitic vol] 87.8 fL Normal 80-100 [facility] Comment on above: Performed By: #### B MP, PTT, CBC, PT #### [facility] [address] [place] [address] [place] Monocytes [#/volume] in Bloo d by Automated countOrdered By: Shavon Mustafa on 07-16-2025 Monocytes (Bld) [#/Vol] 0.6 10*3/uL Normal 0.0-0.8 [facility] Comment on above: Performed By: #### B MP, PTT, CBC, PT #### [place] [address] [place] Monocytes/100 leukocytes in Blood by Automated countOrdered By: Shavon Mustafa on 07-16-2025 Monocytes/100 WBC (Bld) 7.3 % Normal . [facility] Comment on above: Performed By: #### B MP, PTT, CBC, PT #### [place] [address] [place] Neutrophils [#/volume] in Bl ood by Automated countOrdered By: Shavon Mustafa on 07-16-2025 Neutrophils (Bld) [#/Vol] 6.0 10*3/uL Normal 1.8-7.7 [facility] Comment on above: Performed By: #### B MP, PTT, CBC, PT #### [place] [address] [place] Neutrophils/100 leukocytes i n Blood by Automated countOrdered By: Shavon Mustafa on 07-16-2025 Neutrophils/100 WBC (Bld) 70.1 % Normal . [facility] Comment on above: Performed By: #### B MP, PTT, CBC, PT #### [address] Nitrite Test strip Ql (U)Ord ered By: Shavon Mustafa on 07-16-2025 Nitrite Ql (U) Negative Negative [facility] No Panel InformationOrdered By: Shavon Mustafa on 09-09-2025 Pharmacy Creatinine Clearance (Chem N/A [facility] Nucleated erythrocytes [Pres ence] in Blood by Automated countOrdered By: Shavon Mustafa on 07-16-2025 Nucleated RBC Auto Ql (Bld) 0.1 /100{WBC} 0-0.5 [facility] Partial Thromboplastin Timeo n 07-16-2025 aPTT Coag (Bld) [Time] 29.8 s Normal 25.1-36.5 [facility] Comment on above: Result Comment: A he matocrit value greater than 55% may lead to inaccurate results in coagulation testing. Patients having hematocrit values >55% require a special collection tube for coagulation studies. Please contact the laboratory at [phone] for redraw instructions. PERFORMED BY: [place] [address] PATHOLOGIST ENDOCRINOLOGY SPECIALIST MANN HOLLAND M.D. Performed By: #### B MP, PTT, CBC, PT ####[facility] [address] [place] [address] Platelet mean volume [Entiti c volume] in Blood by Automated countOrdered By: Shavon Mustafa on 07-16-2025 Platelet mean volume (Bld) [Entitic vol] 8.0 fL Normal 6.3-10.7 [facility] Comment on above: Performed By: #### B MP, PTT, CBC, PT #### [facility] [address] [place] [address] Platelets [#/volume] in Bloo d by Automated countOrdered By: Shavon Mustafa on 07-16-2025 Platelets (Bld) [#/Vol] 216 10*3/uL Normal 150-450 [facility] Comment on above: Performed By: #### B MP, PTT, CBC, PT #### [facility] [address] [place] [address] [place] Potassium [Moles/volume] in Serum or PlasmaOrdered By: Shavon Mustafa on 07-16-2025 Potassium [Moles/Vol] 3.3 mmol/L Low 3.5-5.1 [facility] Comment on above: Performed By: #### B MP, PTT, CBC, PT #### [facility] [address] Protein [Mass/volume] in Uri ne by Test stripOrdered By: Shavon Mustafa on 07-16-2025 Protein (U) [Mass/Vol] 30 mg/dL Normal Negative [facility] Comment on above: Order Comment: Name Collection Type:: Clean-Voided Midstream Performed By: #### C UU, ADDONUAPLUS #### [facility] [address] Prothrombin time (PT)Ordered By: Shavon Mustafa on 07-16-2025 PT Coag (PPP) [Time] 12.5 s Normal 9.0-12.[address] [facility] Comment on above: A hematocrit value g reater than 55% may lead to inaccurate results in coagulation testing. Patients having hematocrit values >55% require a special collection tube for coagulation studies. Please contact the laboratory at [phone] for redraw instructions. Result Comment: A he matocrit value greater than 55% may lead to inaccurate results in coagulation testing. Patients having hematocrit values >55% require a special collection tube for coagulation studies. Please contact the laboratory at [phone] for redraw instructions. Performed By: #### B MP, PTT, CBC, PT ####[facility] [id number] [place] [id number] [facility] RBC Test strip (U) [#/Vol]Or dered By: Shavon Mustafa on 07-16-2025 RBC (U) [#/Vol] Negative Negative [facility] Serum or plasma anion gap de terminationOrdered By: Shavon Mustafa on 07-16-2025 Anion gap [Moles/Vol] 16.4 mmol/L High 6.0-15.0 [facility] Comment on above: Performed By: #### B MP, PTT, CBC, PT #### [facility] [address] [place] [id number] [facility] Sodium [Moles/volume] in Ser um or PlasmaOrdered By: Shavon Mustafa on 07-16-2025 Sodium [Moles/Vol] 143 mmol/L Normal 136-145 [facility] Comment on above: Performed By: #### B MP, PTT, CBC, PT #### [facility] [address] Specific gravity Test strip (U) [Rel density]Ordered By: Shavon Mustafa on 07-16-2025 Specific gravity (U) [Rel density] 1.025 1.001-1.030 [facility] Unidentified crystals [Prese nce] in Urine sediment by Light microscopyOrdered By: Shavon Mustafa on 07-16-2025 Unidentified crystals LM Ql (Urine sed) See comment [facility] Comment on above: starch crystals note d Urea nitrogen [Mass/volume] in Serum or PlasmaOrdered By: Shavon Mustafa on 07-16-2025 Urea nitrogen [Mass/Vol] 21 mg/dL Normal 7-25 [facility] Comment on above: Performed By: #### B MP, PTT, CBC, PT #### [facility] [address] [place] [address] Urine Cultureon 07-16-2025 Bacteria identified Cx Nom (U) >100,000 colonies/ml mixed bacterial skin contaminants 2 Days PERFORMED BY: [place] [address] PATHOLOGIST ENDOCRINOLOGY SPECIALIST MANN HOLLAND M.D. Normal [facility] Comment on above: Performed By: #### C UU, ADDONUAPLUS #### [address] Urine appearance determinati onOrdered By: Shavon Mustafa on 07-16-2025 Appearance (U) Slightly cloudy Critically abnormal Clear [facility] Comment on above: Order Comment: Name Collection Type:: Clean-Voided Midstream Performed By: #### C UU, ADDONUAPLUS #### [address] Urine cultureOrdered By: Nicole Mustafa on 07-16-2025 Bacteria identified Cx Nom (U) 2 Days [facility] Urine glucose measurement by automated test strip (mass/volume)Ordered By: Shavon Mustafa on 07-16-2025 Glucose Auto test strip (U) [Mass/Vol] Normal mg/dL Normal [facility] Urobilinogen Test strip (U) [Mass/Vol]Ordered By: Shavon Mustafa on 07-16-2025 Urobilinogen (U) [Mass/Vol] 2 mg/dL High Normal [facility] aPTT in Platelet poor plasma by Coagulation assayOrdered By: Shavon Mustafa on 07-16-2025 aPTT Coag (PPP) [Time] 29.8 s 25.1-36.5 [facility] Comment on above: A hematocrit value g reater than 55% may lead to inaccurate results in coagulation testing. Patients having hematocrit values >55% require a special collection tube for coagulation studies. Please contact the laboratory at [phone] for redraw instructions. pH of Urine by Test stripOrd ered By: Shavon Mustafa on 07-16-2025 pH (U) 6.0 [pH] Normal 5.0-9.0 [facility] Comment on above: Order Comment: Name Collection Type:: Clean-Voided Midstream Performed By: #### C UU, ADDONUAPLUS #### [facility] [address] Office Visiton 06-27-2025 Follow-up visit [id number] Renee Mcneal 1950 F Date Provider Department Center 06/27/2025 [facility] Family History Problem Relation Age of Onset Coronary artery disease Father Heart attack Father Family Status - Relation Status Age at Mother Father Sister Alive Level of Service:94396 DE OFFICE/OUTPATIENT ESTABLISHED MOD MDM 30 MIN Reason for Visit and Comments: Hypertension [370878] Congestive Heart Failure [127] Hyperlipidemia [182] Normal [facility] Reminderson 06-20-2025 Reminders Reminders From: Chaya Alicea To: JULIO Mustafa; Sent: 01/16/2025 10:10:51 EDT Show up: 03/18/2025 10:10:00 EDT Subject: GRCAE @ [facility] Due Date/Time: 04/18/2025 10:10:00 EDT Reminder Message Pt to complete GRACE @ [facility] prior to appt in 3 mos. Order in encounter from 01/16/25 (dx: hydroureteronephrosis). Order faxed to [facility] central scheduling today. [facility] called patient 04/03 no answer I attempted to call patient today phone went to follow up on 06/19/25 spoke to patient she states that she has been sick and has not have a chance to schedule GRACE, will call [facility] this week to schedule something. Patient seen IO 06/19/25 Normal [facility] Urology Office/Clinic Noteon 06-19-2025 Urology Office/Clinic Note Urology Office/Clinic Note Chief Complaint fu HPI Staff Pt is a 74 year old female here for a 3 month follow up with GRACE done at [facility] previous DX: hydroureteronephrosis, history of kidney stones [...] 06/19/2025 10:48:37. . Documentation recorded by the ousmaneibgordon, Vivien Jain, accurately reflects the services(s) I [...] rosuvastatin 10 (more content not included)... Normal [facility] Comment on above: Result Comment: Elec tronically Signed By: Shavon Mustafa MD\.br\Date and Time Signed: 06/19/25 11:07 EDT\.br\Electronically Co-Signed By: Vivien Jain\.br\Date and Time Co-Signed: 06/19/25 10:48 EDT US renal BIon 06-11-2025 US renal BI [facility] [place] [address] Ultrasound Report Signed Patient: Tosha Mcneal MR#: [id number] : 1950 Acct:[id number] Age/Sex: 74 / F ADM Date: 06/11/25 Loc: [facility]: [facility]: Shavon Mustafa MD Ordering [...] Jr., D.OPablo 06/11/2025 1:21 PM Dictation Location: [place] [address] Tech: Cyndi Brown Transcribed By: [facility] 06/11/25 1321 Dictated By: Miki Kruse Jr, DO 06/11/25 1319 Signed By: 06/11/25 1321 Normal [facility] CBC WITH AUTO DIFFERENTIALon 05-03-2025 Band form neutrophils/100 WBC (Bld) 3 % Normal [facility] Comment on above: Result Comment: This is an appended report. These results have been appended to a previously preliminary verified report. Performed By: #### C BCA #### [facility] ([facility]) [address] [place] [address] VIR CELLAVISION BASOPHILS ABSOLUTE COUNT (10*3/UL) BY MANUAL COUNT 0.1 10*3/uL Normal 0.0-0.2 [facility] Comment on above: Result Comment: This is an appended report. These results have been appended to a previously preliminary verified report. Performed By: #### C BCA #### [facility] ([facility]) [address] [place] [address] VIR CELLAVISION BASOPHILS RELATIVE PERCENT BY MANUAL COUNT 1 % Normal [facility] Comment on above: Result Comment: This is an appended report. These results have been appended to a previously preliminary verified report. Performed By: #### C BCA #### [facility] ([facility]) [address] [place] [address] VIR CELLAVISION DIFFERENTIAL TYPE MANUAL DIFFERENTIAL Normal [facility] Comment on above: Result Comment: This is an appended report. These results have been appended to a previously preliminary verified report. Performed By: #### C BCA #### [facility] ([facility]) [address] [place] [address] VIR CELLAVISION EOSINOPHILS ABSOLUTE COUNT (10*3/UL) BY MANUAL COUNT 0.1 10*3/uL Normal 0.0-0.4 [facility] Comment on above: Result Comment: This is an appended report. These results have been appended to a previously preliminary verified report. Performed By: #### C BCA #### [facility] ([facility]) [address] [place] [address] VIR CELLAVISION EOSINOPHILS PERCENT BY MANUAL COUNT 1 % Normal [facility] Comment on above: Result Comment: This is an appended report. These results have been appended to a previously preliminary verified report. Performed By: #### C BCA #### [facility] ([facility]) [address] [place] [address] VIR CELLAVISION LYMPHOCYTES ABSOLUTE COUNT (10*3/UL) BY MANUAL COUNT 1.0 10*3/uL Normal 1.0-3.5 [facility] Comment on above: Result Comment: This is an appended report. These results have been appended to a previously preliminary verified report. Performed By: #### C BCA #### [facility] ([facility]) [address] [place] [address] VIR CELLAVISION LYMPHOCYTES RELATIVE PERCENT BY MANUAL COUNT 11 % Normal [facility] Comment on above: Result Comment: This is an appended report. These results have been appended to a previously preliminary verified report. Performed By: #### C BCA #### [facility] ([facility]) [address] [place] [address] VIR CELLAVISION MONOCYTES ABSOLUTE COUNT (10*3/UL) IN BLOOD BY MANUAL COUNT 0.6 10*3/uL Normal 0.0-0.9 [facility] Comment on above: Result Comment: This is an appended report. These results have been appended to a previously preliminary verified report. Performed By: #### C BCA #### [facility] ([facility]) [address] [place] [address] VIR CELLAVISION MONOCYTES RELATIVE PERCENT BY MANUAL COUNT 6 % Normal [facility] Comment on above: Result Comment: This is an appended report. These results have been appended to a previously preliminary verified report. Performed By: #### C BCA #### [facility] ([facility]) [address] [place] [address] VIR CELLAVISION NEUTROPHILS ABSOLUTE COUNT BY MANUAL COUNT 7.4 10*3/uL High 1.5-6.6 [facility] Comment on above: Result Comment: This is an appended report. These results have been appended to a previously preliminary verified report. Performed By: #### C BCA #### [facility] ([facility]) [address] [place] [address] VIR CELLAVISION NEUTROPHILS RELATIVE PERCENT BY MANUAL COUNT 78 % Normal [facility] Comment on above: Result Comment: This is an appended report. These results have been appended to a previously preliminary verified report. Performed By: #### C BCA #### [facility] ([facility]) [address] [place] [address] VIR CELLAVISION RBC MORPHOLOGY Normal Normal [facility] Comment on above: Result Comment: This is an appended report. These results have been appended to a previously preliminary verified report. Performed By: #### C BCA #### [facility] ([facility]) [address] [place] [address] VIR Erythrocyte distribution width (RBC) [Ratio] 16.6 % High 11.5-15 [facility] Comment on above: Performed By: #### C BCA #### [facility] ([facility]) [address] [place] [address] VIR Hematocrit (Bld) [Volume fraction] 35.3 % Normal 35-47 [facility] Comment on above: Performed By: #### C BCA #### [facility] ([facility]) [address] [place] [address] VIR Hemoglobin (Bld) [Mass/Vol] 11.4 g/dL Low 11.7-15.5 [facility] Comment on above: Performed By: #### C BCA #### [facility] ([facility]) [address] [place] [address] VIR MCH (RBC) [Entitic mass] 28.6 pg Normal 27-34 [facility] Comment on above: Performed By: #### C BCA #### [facility] ([facility]) [address] [place] [address] VIR MCHC (RBC) [Mass/Vol] 32.4 g/dL Normal 32-36 [facility] Comment on above: Performed By: #### C BCA #### [facility] ([facility]) [address] [place] [address] VIR MCV (RBC) [Entitic vol] 88 fL Normal 80-100 [facility] Comment on above: Performed By: #### C BCA #### [facility] ([facility]) [address] [place] [address] VIR Platelet mean volume (Bld) [Entitic vol] 7.5 fL Normal 7-12 [facility] Comment on above: Performed By: #### C BCA #### [facility] ([facility]) [address] [place] [address] VIR Platelets (Bld) [#/Vol] 275 10*3/uL Normal 150-450 [facility] Comment on above: Performed By: #### C BCA #### [facility] ([facility]) [address] [place] [address] VIR RBC COUNT 3.99 X10E12/L Normal 3.8-5.2 [facility] Comment on above: Performed By: #### C BCA #### [facility] ([facility]) [address] [place] [address] VIR WBC (Bld) [#/Vol] 9.2 10*3/uL Normal 4-11 [facility] Comment on above: Performed By: #### C BCA #### [facility] ([facility]) [address] [place] [address] VIR COMPREHENSIVE METABOLIC PANE Heladio 05-03-2025 Albumin [Mass/Vol] 3.7 g/dL Normal 3.2-5.3 [facility] Comment on above: Performed By: #### C MP #### [facility] ([facility]) [address] [place] [address] VIR ALP [Catalytic activity/Vol] 57 U/L Normal 39-130 [facility] Comment on above: Performed By: #### C MP #### [facility] ([facility]) [address] [place] [address] VIR ALT [Catalytic activity/Vol] 10 U/L Normal <=31 [facility] Comment on above: Performed By: #### C MP #### [facility] ([facility]) [address] [place] [address] VIR Anion gap [Moles/Vol] 10 mmol/L Normal 5-15 [facility] Comment on above: Performed By: #### C MP #### [facility] ([facility]) [address] [place] [address] VIR AST [Catalytic activity/Vol] 12 U/L Normal <=41 [facility] Comment on above: Performed By: #### C MP #### [facility] ([facility]) [address] [place] [address] VIR Bilirubin [Mass/Vol] 1.7 mg/dL High 0.3-1.2 [facility] Comment on above: Performed By: #### C MP #### [facility] ([facility]) [address] [place] [address] VIR Calcium [Mass/Vol] 9.2 mg/dL Normal 8.5-10.5 [facility] Comment on above: Performed By: #### C MP #### [facility] ([facility]) [address] [place] [address] VIR Chloride [Moles/Vol] 99 mmol/L Normal 98-109 [facility] Comment on above: Performed By: #### C MP #### [facility] ([facility]) [address] [place] [address] VIR CO2 [Moles/Vol] 30 mmol/L Normal 22-32 [facility] Comment on above: Performed By: #### C MP #### [facility] ([facility]) [address] [place] [address] VIR Creatinine [Mass/Vol] 0.79 mg/dL Normal 0.40-1.00 [facility] Comment on above: Result Comment: METH OD TRACEABLE TO IDMS STANDARD Performed By: #### C MP #### [facility] ([facility]) [address] [place] [address] VIR GFR/1.73 sq M.predicted among non-blacks MDRD (S/P/Bld) [Vol rate/Area] 78 mL/min/{1.73_m2} Normal >=60 [facility] Comment on above: Result Comment: Repo rted eGFR is based on the CKD-EPI 2020 equation that does not use a race coefficient. Performed By: #### C MP #### [facility] ([facility]) [address] [place] [address] VIR Glucose [Mass/Vol] 155 mg/dL High 65-99 [facility] Comment on above: Performed By: #### C MP #### [facility] ([facility]) [address] [place] [address] VIR Potassium [Moles/Vol] 3.5 mmol/L Normal 3.5-5.0 [facility] Comment on above: Performed By: #### C MP #### [facility] ([facility]) [address] [place] [address] VIR Protein [Mass/Vol] 7.2 g/dL Normal 6.0-8.0 [facility] Comment on above: Performed By: #### C MP #### [facility] ([facility]) [address] [place] [address] VIR Sodium [Moles/Vol] 139 mmol/L Normal 134-146 [facility] Comment on above: Performed By: #### C MP #### [facility] ([facility]) [address] [place] [address] VIR Urea nitrogen [Mass/Vol] 14 mg/dL Normal 5-27 [facility] Comment on above: Performed By: #### C MP #### [facility] ([facility]) [address] [place] [address] VIR Basic Metabolic Panelon 06-0 Anion gap [Moles/Vol] 12 mmol/L 9 - 16 mmol/L [facility] Calcium [Mass/Vol] 8.8 mg/dL 8.6 - 10. 4 mg/dL [facility] Chloride [Moles/Vol] 102 mmol/L 98 - 10 7 mmol/L [facility] CO2 [Moles/Vol] 25 mmol/L 20 - 31 mmol/L [facility] Creatinine [Mass/Vol] 0.8 mg/dL 0.6 - 0.9 mg/dL [facility] Est, Glom Filt Rate 77 - PINF [facility] Comment on above: These results [...] 183 mg/dL High 74 - 99 mg/dL [facility] Interpretation and review of laboratory results Abnormal [facility] Potassium [Moles/Vol] 4.2 mmol/L 3.7 - 5.3 mmol/L [facility] Sodium [Moles/Vol] 139 mmol/L 136 - 145 mmol/L [facility] Urea nitrogen [Mass/Vol] 23 mg/dL 8 - 23 mg/dL [facility] Basic Metabolic Profon 04-13 Anion gap [Moles/Vol] 12 mmol/L Normal 9-16 [facility] Health Comment on above: Performed By: #### M G, CDP, IOCAL, GLYHGB, BMP ####[facility] [address] [place], [place] [address])[phone] Director: Jose Miguel Davis MD Calcium [Mass/Vol] 8.8 mg/dL Normal 8.6-10.4 [facility] Comment on above: Performed By: #### M G, CDP, IOCAL, GLYHGB, BMP ####[facility] Fnxhjdgjbbqg3218 [place] [address] Lab Director: Jose Miguel Davis MD Chloride [Moles/Vol] 102 mmol/L Normal 98-107 [facility] Comment on above: Performed By: #### M G, CDP, IOCAL, GLYHGB, BMP ####[facility] Ipvtugciwnkj5025 [place] [address] Lab Director: Jose Miguel Davis MD CO2 [Moles/Vol] 25 mmol/L Normal 20-31 [facility] Comment on above: Performed By: #### M G, CDP, IOCAL, GLYHGB, BMP ####[facility] Btjrtobcfort07[address] [place], [place] [address])[phone] Director: Jose Miguel Davis MD Creatinine [Mass/Vol] 0.8 mg/dL Normal 0.6-0.9 [facility] Comment on above: Performed By: #### M G, CDP, IOCAL, GLYHGB, BMP ####[facility] [address] [place] [address] Lab Director: Jose Miguel Davis MD GFR/1.73 sq M.predicted among non-blacks MDRD (S/P/Bld) [Vol rate/Area] 77 mL/min/{1.73_m2} Normal >60 [facility] Comment on above: Result Comment: These [...] #### M G, CDP, IOCAL, GLYHGB, BMP ####[facility] [address] [place] [address] Lab Director: Jose Miguel Davis MD Glucose [Mass/Vol] 183 mg/dL High 74-99 [facility] Comment on above: Performed By: #### M G, CDP, IOCAL, GLYHGB, BMP ####[facility] [address] [place] [address] Lab Director: Jose Miguel Davis MD Potassium [Moles/Vol] 4.2 mmol/L Normal 3.7-5.3 [facility] Comment on above: Performed By: #### M G, CDP, IOCAL, GLYHGB, BMP ####[facility] [address] [place] [address] Lab Director: Jose Miguel Davis MD Sodium [Moles/Vol] 139 mmol/L Normal 136-145 [facility] Comment on above: Performed By: #### M G, CDP, IOCAL, GLYHGB, BMP ####[facility] Momszquzigry2329 [place] [address] Lab Director: Jose Miguel Davis MD Urea nitrogen [Mass/Vol] 23 mg/dL Normal 8-23 [facility] Comment on above: Performed By: #### M G, CDP, IOCAL, GLYHGB, BMP ####[facility] [address] [place] [address] lab Director: Jose Miguel Davis MD CBC with Auto Differentialon 04-13-2025 Basophils (Bld) [#/Vol] 0.04 10*3/uL [facility] Basophils/100 WBC (Bld) 1 % 0 - 2 % [facility] Eosinophils (Bld) [#/Vol] 0.22 10*3/uL [facility] Eosinophils/100 WBC (Bld) 3 % 1 - 4 % [facility] Erythrocyte distribution width (RBC) [Ratio] 16.2 % High 11.8 - 14.4 % [facility] Hematocrit (Bld) [Volume fraction] 35.2 % Low 36.3 - 47.1 % [facility] Hemoglobin (Bld) [Mass/Vol] 10.7 g/dL Low 11.9 - 15.1 g/dL [facility] Immature granulocytes (Bld) [#/Vol] [facility] Immature granulocytes/100 WBC (Bld) 0 % 0 [facility] Interpretation and review of laboratory results Abnormal [facility] Lymphocytes/100 WBC (Bld) 19 % Low 24 - 43 % [facility] Lymphocytes/100 WBC (Bld) 1.37 % [facility] MCH (RBC) [Entitic mass] 28.5 pg 25.2 - 33.5 pg [facility] MCHC (RBC) [Mass/Vol] 30.4 g/dL 28.4 - 34.8 g/dL [facility] MCV (RBC) [Entitic vol] 93.9 fL 82.6 - 102.9 fL [facility] Monocytes/100 WBC (Bld) 8 % 3 - 12 % [facility] Monocytes/100 WBC (Bld) 0.56 % [facility] Neutrophils/100 WBC (Bld) 69 % High 36 - 65 % [facility] Nucleated RBC/100 WBC (Bld) [Ratio] 0 % 0.0 per 100 WBC [facility] Platelet mean volume (Bld) [Entitic vol] 9.6 fL 8.1 - 13.5 fL [facility] Platelets (Bld) [#/Vol] 163 10*3/uL [facility] RBC (Bld) [#/Vol] 3.75 10*6/uL Low 3.95 - 5.1 1 m/uL [facility] RBC (Bld) [#/Vol] ANISOCYTOSIS PRESENT [facility] Segmented neutrophils/100 WBC (Bld) 4.88 % [facility] WBC other (Bld) [#/Vol] [facility]1 [facility] CBC with Diffon 04-13-2025 Abs. Basophil 0.04 k/uL Normal 0.00-0.20 [facility] Comment on above: Performed By: #### M Jailene, CDP, IOCAL, GLYHGB, BMP ####[facility] [address] [place], [place] [address])[phone] Director: Jose Miguel Davis MD Abs.Imm.Granulocyte <0.03 Normal 0.00-0.30 [facility] Comment on above: Performed By: #### M Jailene, CDP, IOCAL, GLYHGB, BMP ####[facility] [address] [place] [address] Lab Director: Jose Miguel Davis MD Abs.Neutrophil (Seg) 4.88 k/uL Normal 1.50-8.10 [facility] Comment on above: Performed By: #### M G, CDP, IOCAL, GLYHGB, BMP ####[facility] Livbvmrnvlqa1453 [place] [address] Lab Director: Jose Miguel Davis MD Basophils/100 WBC (Bld) 1 % Normal 0-2 [facility] Comment on above: Performed By: #### M G, CDP, IOCAL, GLYHGB, BMP ####[facility] Isobhvpxjnkf5249 [place] [address] Lab Director: Jose Miguel Davis MD Eosinophils (Bld) [#/Vol] 0.22 10*3/uL Normal 0.00-0.44 [facility] Comment on above: Performed By: #### M G, CDP, IOCAL, GLYHGB, BMP ####[address] [id number])[phone] Director: Jose Miguel Davis MD Eosinophils/100 WBC (Bld) 3 % Normal 1-4 [facility] Comment on above: Performed By: #### M G, CDP, IOCAL, GLYHGB, BMP ####[place], [place] [address])[phone] Director: Jose Miguel Davis MD Erythrocyte distribution width (RBC) [Ratio] 16.2 % High 11.8-14.4 [facility] Comment on above: Performed By: #### M G, CDP, IOCAL, GLYHGB, BMP ####[place], [place] [address])[phone] Director: Jose Miguel Davis MD Hematocrit (Bld) [Volume fraction] 35.2 % Low 36.3-47.1 [facility] Comment on above: Performed By: #### M G, CDP, IOCAL, GLYHGB, BMP ####[place], [place] [address])[phone] Director: Jose Miguel Davis MD Hemoglobin (Bld) [Mass/Vol] 10.7 g/dL Low 11.9-15.1 [facility] Comment on above: Performed By: #### M G, CDP, IOCAL, GLYHGB, BMP ####[address] [id number])[phone] Director: Jose Miguel Davis MD Immature granulocytes/100 WBC (Bld) 0 % Normal 0 [facility] Comment on above: Performed By: #### M G, CDP, IOCAL, GLYHGB, BMP ####[facility] [address]hf[address] [place], [place] [phone] Director: Jose Miguel Davis MD Lymphocytes (Bld) [#/Vol] 1.37 10*3/uL Normal 1.10-3.70 [facility] Comment on above: Performed By: #### M G, CDP, IOCAL, GLYHGB, BMP ####[facility] Hm[address]84[address] [place], [place] [phone] Director: Jose Miguel Davis MD Lymphocytes/100 WBC (Bld) 19 % Low 24-43 [facility] Comment on above: Performed By: #### M G, CDP, IOCAL, GLYHGB, BMP ####[facility] Ffqfrbqjpf[address]6068 [place], [place] [phone] Director: Jose Miguel Davis MD MCH (RBC) [Entitic mass] 28.5 pg Normal 25.2-33.5 [facility] Comment on above: Performed By: #### M Jailene, CDP, IOCAL, GLYHGB, BMP ####[facility] [address] [place] [address])[phone] Director: Jose Miguel Davis MD MCHC (RBC) [Mass/Vol] 30.4 g/dL Normal 28.4-34.8 [facility] Comment on above: Performed By: #### M Jailene, CDP, IOCAL, GLYHGB, BMP ####[facility] Hjrqnrtkozlc8411 [place], [place] [phone] Director: Jose Miguel Davis MD MCV (RBC) [Entitic vol] 93.9 fL Normal 82.6-102.9 [facility] Comment on above: Performed By: #### M G, CDP, IOCAL, GLYHGB, BMP ####[facility] [address]ut[address] [place], [place] [phone] Director: Jose Miguel Davis MD Monocytes (Bld) [#/Vol] 0.56 10*3/uL Normal 0.10-1.20 [facility] Comment on above: Performed By: #### M G, CDP, IOCAL, GLYHGB, BMP ####[facility] [address]59 [place] [address] Lab Director: Jose Miguel Davis MD Monocytes/100 WBC (Bld) 8 % Normal 3-12 [facility] Comment on above: Performed By: #### M G, CDP, IOCAL, GLYHGB, BMP ####[facility] [address]bzfk44[address] [place] [address] Lab Director: Jose Miguel Davis MD Neutrophil (Seg) 69 % High 36-65 [facility] Comment on above: Performed By: #### M G, CDP, IOCAL, GLYHGB, BMP ####[facility] Hmcoyjtynjkc5615 [place], [place] [phone] Director: Jose Miguel Davis MD NRBC Automated 0.0 per 100 WBC Normal 0.0 [facility] Comment on above: Performed By: #### M G, CDP, IOCAL, GLYHGB, BMP ####[facility] [address]ft[address]clurlo3435 [place] [address] Lab Director: Jose Miguel Davis MD Platelet mean volume (Bld) [Entitic vol] 9.6 fL Normal 8.1-13.5 [facility] Comment on above: Performed By: #### M G, CDP, IOCAL, GLYHGB, BMP ####[facility] [address] [place] [address] Lab Director: Jose Miguel Davis MD Platelets (Bld) [#/Vol] 163 10*3/uL Normal 138-453 [facility] Comment on above: Performed By: #### M G, CDP, IOCAL, GLYHGB, BMP ####[facility] Ujh[address]ht[address]26[address] [place] [address] Lab Director: Jose Miguel Davis MD RBC (Bld) [#/Vol] 3.75 10*6/uL Low 3.95-5.11 [facility] Comment on above: Performed By: #### M Jailene, CDP, IOCAL, GLYHGB, BMP ####[facility] [address]qmjchdl3437 [place], [place] [phone] Director: Jose Miguel Davis MD RBC morphology finding Nom (Bld) ANISOCYTOSIS PRESENT Normal [facility] Comment on above: Performed By: #### M Jailene, CDP, IOCAL, GLYHGB, BMP ####[facility] [address]jfym[address] [place], [place] [id number])[phone] Director: Jose Miguel Davis MD WBC (Bld) [#/Vol] 7.1 10*3/uL Normal 3.5-11.3 [facility] Comment on above: Performed By: #### M Jailene, CDP, IOCAL, GLYHGB, BMP ####[facility] Rpzrxcsdcvbo6862 [place], [place] [phone] Director: Jose Miguel Davis MD Calcium, Ionicon 04-13-2025 Calcium [Moles/Vol] 1.10 mmol/L Low 1.13-1.33 [facility] Comment on above: Performed By: #### M Jailene, CDP, IOCAL, GLYHGB, BMP ####[employer] Aq[address]ijeblcgp8173 [place], [place] [phone] Director: Jose Miguel Davis MD Calcium, Ionizedon Calcium.ionized (Bld) [Moles/Vol] 1.10 mmol/L Low 1.13 - 1.33 mmol/L [facility] Interpretation and review of laboratory results Abnormal [facility] Glucose,Whole Bloodon 2024 Glucose [Mass/Vol] 223 mg/dL High 65-105 [facility] Glucose [Mass/Vol] 192 mg/dL High 65-105 [facility] Hemoglobin A1Con 04-13-2025 Average glucose Estimated from glycated hemoglobin (Bld) [Mass/Vol] 171 mg/dL [facility] Comment on above: The ADA and AACC rec ommend providing the estimated average glucose result to permit better patient understanding of their HBA1c result. HbA1c (Bld) [Mass fraction] 7.6 % High 4.0 - 6.0 % [facility] Interpretation and review of laboratory results Abnormal [facility] [employer] Glucose [Mass/Vol] 171 mg/dL Normal [facility] Comment on above: Result Comment: The ADA and AACC recommend providing the estimated average glucose result to permit better patient understanding of their HBA1c result. Performed By: #### M Jailene, CDP, IOCAL, GLYHGB, BMP ####[employer] Pkmstrbprdmb[address]87 [place], [place] [phone] lab Director: Jose Miguel Davis MD HbA1c (Bld) [Mass fraction] 7.6 % High 4.0-6.0 [facility] Comment on above: Performed By: #### M Jailene, CDP, IOCAL, GLYHGB, BMP ####[employer] Vcesyraefw[address]9256 [place], [place] [id number] lab Director: Jose Miguel Davis MD Magnesiumon 04-13-2025 Magnesium [Mass/Vol] 1.7 mg/dL 1.6 - 2 .4 mg/dL [facility] [employer] Magnesium [Mass/Vol] 1.7 mg/dL Normal 1.6-2.4 [facility] Comment on above: Performed By: #### M Jailene, CDP, IOCAL, GLYHGB, BMP ####[employer] Olvsxmasiqth3902 [place], [place] [phone] lab Director: Jose Miguel Davis MD No Panel Informationon 04-13 [facility] POC Glucose Fingerstickon Glucose [Mass/Vol] 223 mg/dL High 65 - 105 mg/dL [facility] [facility] Interpretation and review of laboratory results Abnormal [facility] [employer] Glucose [Mass/Vol] 192 mg/dL High 65 - 105 mg/dL [facility] Interpretation and review of laboratory results Abnormal [facility] Basic Metab w/rfx MGon 04-12 Anion gap [Moles/Vol] 13 mmol/L Normal 9-16 [facility] Comment on above: Performed By: #### B MPX ####[facility] [address] [place], [place] [address])[phone] Director: Jose Miguel Davis MD Calcium [Mass/Vol] 8.4 mg/dL Low 8.6-10.4 [facility] Comment on above: Performed By: #### B MPX ####[facility] [address]xjjylao8[address] [place], [place] [address])[phone] Director: Jose Miguel Davis MD Chloride [Moles/Vol] 98 mmol/L Normal 98-107 [facility] Comment on above: Performed By: #### B MPX ####[facility] Cbfafcnfgyvj3731 [place], [place] [phone] Director: Jose Miguel Davis MD CO2 [Moles/Vol] 26 mmol/L Normal 20-31 [facility] Comment on above: Performed By: #### B MPX ####[facility] Qmxfatlzwsjf3425 [place], [place] [phone] Director: Jose Miguel Davis MD Creatinine [Mass/Vol] 1.2 mg/dL High 0.6-0.9 [facility] Comment on above: Performed By: #### B MPX ####[facility] Vfsbloswvdvr2581 [place], [place] [phone] Director: Jose Miguel Davis MD GFR/1.73 sq M.predicted among non-blacks MDRD (S/P/Bld) [Vol rate/Area] 47 mL/min/{1.73_m2} Low >60 [facility] Comment on above: Result Comment: These [...] tubular secretion. Performed By: #### B MPX ####[facility] [address]oknxyeeehhr8733 [place] [address] Lab Director: Jose Miguel Davis MD Glucose [Mass/Vol] 265 mg/dL High 74-99 [facility] Comment on above: Performed By: #### B MPX ####[facility] [address]xcu[address] [place], [place] [address])[phone] Director: Jose Miguel Davis MD Potassium [Moles/Vol] 3.8 mmol/L Normal 3.7-5.3 [facility] Comment on above: Performed By: #### B MPX ####[facility] [address] [place] [address] [phone])[phone] Director: Jose Miguel Davis MD Sodium [Moles/Vol] 137 mmol/L Normal 136-145 [facility] Comment on above: Performed By: #### B MPX ####[facility] Bphzxscfkxrq3208 [place], [place] [phone] Director: Jose Miguel Davis MD Urea nitrogen [Mass/Vol] 27 mg/dL High 8-23 [facility] Comment on above: Performed By: #### B MPX ####[facility] Wcxsnnuryltz1159 [place], [place] [address])[phone] Director: Jose Miguel Davis MD Basic Metabolic Panelon 06-0 Anion gap [Moles/Vol] 13 mmol/L 9 - 16 mmol/L [facility] Calcium [Mass/Vol] 8.5 mg/dL Low 8.6 - 10. 4 mg/dL [facility] Chloride [Moles/Vol] 97 mmol/L Low 98 - 10 7 mmol/L [facility] CO2 [Moles/Vol] 24 mmol/L 20 - 31 mmol/L [facility] Creatinine [Mass/Vol] 1.1 mg/dL High 0.6 - 0.9 mg/dL [facility] Est, Glom Filt Rate 52 Low - PINF [facility] Comment on above: These results [...] 196 mg/dL High 74 - 99 mg/dL [facility] Interpretation and review of laboratory results Abnormal [facility] Potassium [Moles/Vol] 3.9 mmol/L 3.7 - 5.3 mmol/L [facility] Sodium [Moles/Vol] 134 mmol/L Low 136 - 145 mmol/L [facility] Urea nitrogen [Mass/Vol] 27 mg/dL High 8 - 23 mg/dL [facility] Basic Metabolic Panel w/ Ref sam to MGon 04-12-2025 Anion gap [Moles/Vol] 13 mmol/L 9 - 16 mmol/L [facility] Calcium [Mass/Vol] 8.4 mg/dL Low 8.6 - 10. 4 mg/dL [facility] Chloride [Moles/Vol] 98 mmol/L 98 - 10 7 mmol/L [facility] CO2 [Moles/Vol] 26 mmol/L 20 - 31 mmol/L [facility] Creatinine [Mass/Vol] 1.2 mg/dL High 0.6 - 0.9 mg/dL [facility] Est, Glom Filt Rate 47 Low - PINF [facility] Comment on above: These results [...] 265 mg/dL High 74 - 99 mg/dL [facility] Interpretation and review of laboratory results Abnormal [facility] Potassium [Moles/Vol] 3.8 mmol/L 3.7 - 5.3 mmol/L [facility] Sodium [Moles/Vol] 137 mmol/L 136 - 145 mmol/L [facility] Urea nitrogen [Mass/Vol] 27 mg/dL High 8 - 23 mg/dL [facility] Basic Metabolic Profon 04-12 Anion gap [Moles/Vol] 13 mmol/L Normal 9-16 [facility] Comment on above: Performed By: #### CATHERINE Anderson IOCAL, CDP ####[facility] Pjwsrzeinoov2995 [place] [address] Lab Director: Jose Miguel Davis MD Calcium [Mass/Vol] 8.5 mg/dL Low 8.6-10.4 [facility] Comment on above: Performed By: #### CATHERINE Anderson IOCAL, CDP ####[facility] [address]klwxvvskl9543 [place] [address] Lab Director: Jose Miguel Davis MD Chloride [Moles/Vol] 97 mmol/L Low 98-107 [facility] Comment on above: Performed By: #### CATHERINE Anderson IOCAL, CDP ####[employer] [address]lsivyovqwd7063 [place] [address] Lab Director: Jose Miguel Davis MD CO2 [Moles/Vol] 24 mmol/L Normal 20-31 [facility] Comment on above: Performed By: #### CATHERINE Anderson, IOCAL, CDP ####[employer] Qqfafwzbwmho5243 [place] [address] Lab Director: Jose Miguel Davis MD Creatinine [Mass/Vol] 1.1 mg/dL High 0.6-0.9 [facility] Comment on above: Performed By: #### CATHERINE Anderson, IOCAL, CDP ####[facility] [address]rh[address]38[address] [place] [address] Lab Director: Jose Miguel Davis MD GFR/1.73 sq M.predicted among non-blacks MDRD (S/P/Bld) [Vol rate/Area] 52 mL/min/{1.73_m2} Low >60 [facility] Comment on above: Result Comment: These [...] By: #### CATHERINE Anderson IOCAL, CDP ####[facility] [address]tfkghwhjsuq76[address] [place] [address] Lab Director: Jose Miguel Davis MD Glucose [Mass/Vol] 196 mg/dL High 74-99 [facility] Comment on above: Performed By: #### CATHERINE Anderson IOCAL, CDP ####[facility] Xl[address]ypjvvokwe8439 [place] [address] Lab Director: Jose Miguel Davis MD Potassium [Moles/Vol] 3.9 mmol/L Normal 3.7-5.3 [facility] Comment on above: Performed By: #### CATHERINE Anderson, IOCAL, CDP ####[facility] [address]gzu2366 [place] [address] Lab Director: Jose Miguel Davis MD Sodium [Moles/Vol] 134 mmol/L Low 136-145 [facility] Comment on above: Performed By: #### [place] Dent, CATHERINE, IOCAL, CDP ####[facility] [address]flrejthyr65[address] [place] [address] Lab Director: Jose Miguel Davis MD Urea nitrogen [Mass/Vol] 27 mg/dL High 8-23 [facility] Comment on above: Performed By: #### M G, BMP, IOCAL, CDP ####[facility] Khpjegmxkutg5297 [place] [address] lab Director: Jose Miguel Davis MD CBC with Auto Differentialon 04-12-2025 Basophils (Bld) [#/Vol] [facility] Basophils/100 WBC (Bld) 0 % 0 - 2 % [facility] Eosinophils (Bld) [#/Vol] [facility] Eosinophils/100 WBC (Bld) 0 % Low 1 - 4 % [facility] Erythrocyte distribution width (RBC) [Ratio] 16.2 % High 11.8 - 14.4 % [facility] Hematocrit (Bld) [Volume fraction] 35.8 % Low 36.3 - 47.1 % [facility] Hemoglobin (Bld) [Mass/Vol] 10.9 g/dL Low 11.9 - 15.1 g/dL [facility] Immature granulocytes (Bld) [#/Vol] 0.04 10*3/uL [facility] Immature granulocytes/100 WBC (Bld) 0 % 0 [facility] Interpretation and review of laboratory results Abnormal [facility] Lymphocytes/100 WBC (Bld) 15 % Low 24 - 43 % [facility] Lymphocytes/100 WBC (Bld) 1.52 % [facility] MCH (RBC) [Entitic mass] 28.9 pg 25.2 - 33.5 pg [facility] MCHC (RBC) [Mass/Vol] 30.4 g/dL 28.4 - 34.8 g/dL [facility] MCV (RBC) [Entitic vol] 95 fL 82.6 - 102.9 fL [facility] Monocytes/100 WBC (Bld) 7 % 3 - 12 % [facility] Monocytes/100 WBC (Bld) 0.7 % [facility] Neutrophils/100 WBC (Bld) 78 % High 36 - 65 % [facility] Nucleated RBC/100 WBC (Bld) [Ratio] 0 % 0.0 per 100 WBC [facility] Platelet mean volume (Bld) [Entitic vol] 9.7 fL 8.1 - 13.5 fL [facility] Platelets (Bld) [#/Vol] 177 10*3/uL [facility] RBC (Bld) [#/Vol] 3.77 10*6/uL Low 3.95 - 5.1 1 m/uL [facility] RBC (Bld) [#/Vol] ANISOCYTOSIS PRESENT [facility] Segmented neutrophils/100 WBC (Bld) 7.67 % [facility] WBC other (Bld) [#/Vol] 10 [facility] CBC with Diffon 04-12-2025 Abs. Basophil <0.03 Normal 0.00-0.20 [facility] Comment on above: Performed By: #### CATHERINE Anderson, IOCAL, CDP ####[facility] [address]fs[address] [place], [place] [address])[phone] Director: Jose Miguel Davis MD Abs. Eosinophil <0.03 Normal 0.00-0.44 [facility] Comment on above: Performed By: #### CATHERINE Anderson, IOCAL, CDP ####[facility] Zfajdueiveem3990 [place], [place] [address])[phone] Director: Jose Miguel Davis MD Abs.Imm.Granulocyte 0.04 k/uL Normal 0.00-0.30 [facility] Comment on above: Performed By: #### CATHERINE Anderson, IOCAL, CDP ####[facility] Lmyyzsjvjtqa6346 [place], [place] [address])[phone] Director: Jose Miguel Davis MD Abs.Neutrophil (Seg) 7.67 k/uL Normal 1.50-8.10 [facility] Comment on above: Performed By: #### CATHERINE Anderson, IOCAL, CDP ####[facility] Zypwqjtjmsqc5663 [place], [place] [address])[phone] Director: Jose Miguel Davis MD Basophils/100 WBC (Bld) 0 % Normal 0-2 [facility] Comment on above: Performed By: #### M G, BMP, IOCAL, CDP ####[facility] Fpffioesyyqi4906 [place], [place] [phone] Director: Jose Miguel Davis MD Eosinophils/100 WBC (Bld) 0 % Low 1-4 [facility] Comment on above: Performed By: #### M G, BMP, IOCAL, CDP ####[facility] [address] [place], [place] [phone] Director: Jose Miguel Davis MD Erythrocyte distribution width (RBC) [Ratio] 16.2 % High 11.8-14.4 [facility] Comment on above: Performed By: #### [place] Dent, BMP, IOCAL, CDP ####[facility] Ukodfaeqxupm4357 [place], [place] [phone] Director: Jose Miguel Davis MD Hematocrit (Bld) [Volume fraction] 35.8 % Low 36.3-47.1 [facility] Comment on above: Performed By: #### [place] Dent, CATHERINE, IOCAL, CDP ####[facility] [address]uqxkaxog[address] [place], [place] [phone] Director: Jose Miguel Davis MD Hemoglobin (Bld) [Mass/Vol] 10.9 g/dL Low 11.9-15.1 [facility] Comment on above: Performed By: #### M G, BMP, IOCAL, CDP ####[facility] Jcrhekwpxzoq7652 [place], [place] [phone] Director: Jose Miguel Davis MD Immature granulocytes/100 WBC (Bld) 0 % Normal 0 [facility] Comment on above: Performed By: #### M G, BMP, IOCAL, CDP ####[facility] [address]juytrece[address] [place], [place] [phone] Director: Jose Miguel Davis MD Lymphocytes (Bld) [#/Vol] 1.52 10*3/uL Normal 1.10-3.70 [facility] Comment on above: Performed By: #### [place] Dent, CATHERINE, IOCAL, CDP ####[facility] Qzxvkkvkkfvw4704 [place] [address] Lab Director: Jose Miguel Davis MD Lymphocytes/100 WBC (Bld) 15 % Low 24-43 [facility] Comment on above: Performed By: #### [place] Dent, BMP, IOCAL, CDP ####[facility] Xjgrktjfhcdd6263 [place], [place] [phone] Director: Jose Miguel Davis MD MCH (RBC) [Entitic mass] 28.9 pg Normal 25.2-33.5 [facility] Comment on above: Performed By: #### [place] Dent, CATHERINE, IOCAL, CDP ####[facility] [address]xunry[address] [place], [place] [address])[phone] Director: Jose Miguel Davis MD MCHC (RBC) [Mass/Vol] 30.4 g/dL Normal 28.4-34.8 [facility] Comment on above: Performed By: #### [place] Dent, CATHERINE, IOCAL, CDP ####[facility] Iepwvjbdrdtn2859 [place], [place] [phone] Director: Jose Miguel Davis MD MCV (RBC) [Entitic vol] 95.0 fL Normal 82.6-102.9 [facility] Comment on above: Performed By: #### [place] Dent, BMP, IOCAL, CDP ####[facility] Lhqznoqxdjod8275 [place], [place] [phone] Director: Jose Miguel Davis MD Monocytes (Bld) [#/Vol] 0.70 10*3/uL Normal 0.10-1.20 [facility] Comment on above: Performed By: #### [place] Dent, CATHERINE, IOCAL, CDP ####[facility] Offwh[address]clvqk[address] [place] [address] Lab Director: Jose Miguel Davis MD Monocytes/100 WBC (Bld) 7 % Normal 3-12 [facility] Comment on above: Performed By: #### [place] Dent, CATHERINE, IOCAL, CDP ####[facility] Pgwxdvkrmncz[address]19 [place] [address] Lab Director: Jose Miguel Davis MD Neutrophil (Seg) 78 % High 36-65 [facility] Comment on above: Performed By: #### [place] Dent, CATHERINE, IOCAL, CDP ####[facility] Awhkuosjvtow1412 [place] [address] Lab Director: Jose Miguel Davis MD NRBC Automated 0.0 per 100 WBC Normal 0.0 [facility] Comment on above: Performed By: #### [place] Dent, CATHERINE, IOCAL, CDP ####[facility] Tcvboqfegtes1731 [place] [address] Lab Director: Jose Miguel Davis MD Platelet mean volume (Bld) [Entitic vol] 9.7 fL Normal 8.1-13.5 [facility] Comment on above: Performed By: #### [place] Dent, CATHERINE, IOCAL, CDP ####[facility] [address] [place] [address] Lab Director: Jose Miguel Davis MD Platelets (Bld) [#/Vol] 177 10*3/uL Normal 138-453 [facility] Comment on above: Performed By: #### [place] Dent, CATHERINE, IOCAL, CDP ####[facility] Gzagocsnxdot7093 [place] [address] Lab Director: Jose Miguel Davis MD RBC (Bld) [#/Vol] 3.77 10*6/uL Low 3.95-5.11 [facility] Comment on above: Performed By: #### [place] Dent, CATHERINE, IOCAL, CDP ####[facility] Xrdexyzhlsdy5763 [place] [address] Lab Director: Jose Miguel Davis MD RBC morphology finding Nom (Bld) ANISOCYTOSIS PRESENT Normal [facility] Comment on above: Performed By: #### CATHERINE Anderson, IOCAL, CDP ####[facility] Jgwxrtrwgjvd4987 [place] [address] Lab Director: Jose Miguel Davis MD WBC (Bld) [#/Vol] 10.0 10*3/uL Normal 3.5-11.3 [facility] Comment on above: Performed By: #### CATHERINE Anderson, IOCAL, CDP ####[facility] Hkpsdcgudnqu[address]242 [place] [address] lab Director: Jose Miguel Davis MD Calcium, Ionicon 04-12-2025 Calcium [Moles/Vol] 1.10 mmol/L Low 1.13-1.33 [facility] Comment on above: Performed By: #### CATHERINE Anderson, IOCAL, CDP ####[facility] Grulcm[address]cvopd[address] [place] [address] lab Director: Jose Miguel Davis MD Calcium, Ionizedon Calcium.ionized (Bld) [Moles/Vol] 1.10 mmol/L Low 1.13 - 1.33 mmol/L [facility] Interpretation and review of laboratory results [facility] Glucose,Whole Bloodon 2024 Glucose [Mass/Vol] 265 mg/dL High 65-105 [facility] Glucose [Mass/Vol] 226 mg/dL High 65-105 [facility] Glucose [Mass/Vol] 199 mg/dL High 65-105 [facility] Magnesiumon 04-12-2025 Magnesium [Mass/Vol] 1.8 mg/dL 1.6 - 2 .4 mg/dL [facility] Magnesium [Mass/Vol] 1.8 mg/dL Normal 1.6-2.4 [facility] Comment on above: Performed By: #### M Jailene, BMP, IOCAL, CDP ####[employer] [address] [place] [address] Lab Director: Jose Miguel Davis MD No Panel Informationon 04-12 [facility] POC Glucose Fingerstickon Glucose [Mass/Vol] 265 mg/dL High 65 - 105 mg/dL [facility] Interpretation and review of laboratory results [facility] Glucose [Mass/Vol] 226 mg/dL High 65 - 105 mg/dL [facility] Interpretation and review of laboratory results Abnormal [facility] Glucose [Mass/Vol] 199 mg/dL High 65 - 105 mg/dL [facility] Interpretation and review of laboratory results Abnormal [facility] Portable XR Chest AP single viewon 04-12-2025 [...] lobe, which may represent atelectasis or scarring. [facility] Radiology Study observation (narrative) [facility] Portable XR Chest AP single viewOrdered By: Sasha Arellano on 04-12-2025 [facility] reportbrain Work Phone: SURGICAL PATHOLOGY REPORTon 04-12-2025 Surgical Pathology Report Path Number: [id number] -- Diagnosis -- GALLBLADDER, CHOLECYSTECTOMY: - CHRONIC [...] lesions or periductal lymph nodes are identified. Drying Room Supervisor sections 1c. Kimberly Margarita/se:04/11/2025 Microscopic Description Microscopic examination performed. Processing Lab: [address] [id number] Interpretation Performed at [address] [phone] SURGICAL PATHOLOGY CONSULTATION Patient Name: TOSHA MCNEAL [facility] Rec: [id number] [facility]ly [facility] ANATOMIC PATHOLOGY [address] [place] [address]. [place], [place] [address] [facility] reportbrain [facility] X[facility] CHEST PORTABLEon 04-12-20 XR CHEST PORTABLE EXAMINATION: ONE XRAY VIEW [...] Sasha Arellano MD 04/12/25 Final result Normal [facility] Basic Metabolic Panelon 06- Anion gap [Moles/Vol] 14 mmol/L 9 - 16 mmol/L [facility] Calcium [Mass/Vol] 8.6 mg/dL 8.6 - 10. 4 mg/dL [facility] Chloride [Moles/Vol] 101 mmol/L 98 - 10 7 mmol/L [facility] CO2 [Moles/Vol] 25 mmol/L 20 - 31 mmol/L [facility] Creatinine [Mass/Vol] 0.9 mg/dL 0.6 - 0.9 mg/dL [facility] Est, Glom Filt Rate 67 - PINF [facility] S [facility] Comment on above: These results are not [...] 216 mg/dL High 74 - 99 mg/dL [facility] Potassium [Moles/Vol] 4.1 mmol/L 3.7 - 5.3 mmol/L [facility] Sodium [Moles/Vol] 140 mmol/L 136 - 145 mmol/L [facility] Urea nitrogen [Mass/Vol] 18 mg/dL 8 - 23 mg/dL [facility] Basic Metabolic Profon 04-11 Anion gap [Moles/Vol] 14 mmol/L Normal 9-16 [facility] Comment on above: Performed By: #### B MP, MG, CDP, IOCAL, LIVP ####[place] [address] [place] [phone] lab Director: Jose Miguel Davis MD Calcium [Mass/Vol] 8.6 mg/dL Normal 8.6-10.4 [facility] Comment on above: Performed By: #### B MP, MG, CDP, IOCAL, LIVP ####[facility] [address] [place] [address] Lab Director: Jose Miguel Davis MD Chloride [Moles/Vol] 101 mmol/L Normal 98-107 [facility] Comment on above: Performed By: #### B MP, MG, CDP, IOCAL, LIVP ####[address] [address] Lab Director: Jose Miguel Davis MD CO2 [Moles/Vol] 25 mmol/L Normal 20-31 [facility] Comment on above: Performed By: #### B MP, MG, CDP, IOCAL, LIVP ####[address] [address] Lab Director: Jose Miguel Davis MD Creatinine [Mass/Vol] 0.9 mg/dL Normal 0.6-0.9 [facility] Comment on above: Performed By: #### B MP, MG, CDP, IOCAL, LIVP ####[address] [address] Lab Director: JoseM iguel Davis MD GFR/1.73 sq M.predicted among non-blacks MDRD (S/P/Bld) [Vol rate/Area] 67 mL/min/{1.73_m2} Normal >60 [facility] Comment on above: Result Comment: These [...] B MP, MG, CDP, IOCAL, LIVP ####[facility] [address]uy[address] [place] [address] Lab Director: Jose Miguel Davis MD Glucose [Mass/Vol] 216 mg/dL High 74-99 [facility] Comment on above: Performed By: #### B MP, MG, CDP, IOCAL, LIVP ####[facility] [address]rnnohsqfirm3232 [place] [address] Lab Director: Jose Miguel Davis MD Potassium [Moles/Vol] 4.1 mmol/L Normal 3.7-5.3 [facility] Comment on above: Performed By: #### B MP, MG, CDP, IOCAL, LIVP ####[facility] [address] [place] [address] Lab Director: Jose Miguel Davis MD Sodium [Moles/Vol] 140 mmol/L Normal 136-145 [facility] Comment on above: Performed By: #### B MP, MG, CDP, IOCAL, LIVP ####[facility] [address]xhhjmotn7892 [place] [address] Lab Director: Jose Miguel Davis MD Urea nitrogen [Mass/Vol] 18 mg/dL Normal 8-23 [facility] Comment on above: Performed By: #### B MP, MG, CDP, IOCAL, LIVP ####[facility] [address]qyvwfcgnszi3943 [place] [address] Lab Director: Jose Miguel Davis MD CBC with Auto Differentialon 04-11-2025 Basophils (Bld) [#/Vol] [facility] Basophils/100 WBC (Bld) 0 % 0 - 2 % [facility] Eosinophils (Bld) [#/Vol] [facility] Eosinophils/100 WBC (Bld) 0 % Low 1 - 4 % [facility] Erythrocyte distribution width (RBC) [Ratio] 15.9 % High 11.8 - 14.4 % [facility] Hematocrit (Bld) [Volume fraction] 37.9 % 36.3 - 47.1 % [facility] Hemoglobin (Bld) [Mass/Vol] 11.8 g/dL Low 11.9 - 15.1 g/dL [facility] Immature granulocytes (Bld) [#/Vol] 0.05 10*3/uL [facility] Immature granulocytes/100 WBC (Bld) 0 % 0 [facility] Interpretation and review of laboratory results Abnormal [facility] Lymphocytes/100 WBC (Bld) 9 % Low 24 - 43 % [facility] Lymphocytes/100 WBC (Bld) 1.1 % [facility] MCH (RBC) [Entitic mass] 28.5 pg 25.2 - 33.5 pg [facility] MCHC (RBC) [Mass/Vol] 31.1 g/dL 28.4 - 34.8 g/dL [facility] MCV (RBC) [Entitic vol] 91.5 fL 82.6 - 102.9 fL [facility] Monocytes/100 WBC (Bld) 5 % 3 - 12 % [facility] Monocytes/100 WBC (Bld) 0.54 % [facility] Neutrophils/100 WBC (Bld) 86 % High 36 - 65 % [facility] Nucleated RBC/100 WBC (Bld) [Ratio] 0 % 0.0 per 100 WBC [facility] Platelet mean volume (Bld) [Entitic vol] 9.7 fL 8.1 - 13.5 fL [facility] Platelets (Bld) [#/Vol] 181 10*3/uL [facility] RBC (Bld) [#/Vol] 4.14 10*6/uL 3.95 - 5.1 1 m/uL [facility] RBC (Bld) [#/Vol] ANISOCYTOSIS PRESENT [facility] Segmented neutrophils/100 WBC (Bld) 9.96 % High [facility] WBC other (Bld) [#/Vol] 11.7 [facility] CBC with Diffon 04-11-2025 Abs. Basophil <0.03 Normal 0.00-0.20 [facility] Comment on above: Performed By: #### B MP, MG, CDP, IOCAL, LIVP ####[address] [address])[phone] Director: Jose Miguel Davis MD Abs. Eosinophil <0.03 Normal 0.00-0.44 [facility] Comment on above: Performed By: #### B MP, MG, CDP, IOCAL, LIVP ####[address] [address])[phone] Director: Jose Miguel Davis MD Abs.Imm.Granulocyte 0.05 k/uL Normal 0.00-0.30 [facility] Comment on above: Performed By: #### B MP, MG, CDP, IOCAL, LIVP ####[place], [place] [address])[phone] Director: Jose Miguel Davis MD Abs.Neutrophil (Seg) 9.96 k/uL High 1.50-8.10 [facility] Comment on above: Performed By: #### B MP, MG, CDP, IOCAL, LIVP ####[address] [address])[phone] Director: Jose Miguel Davis MD Basophils/100 WBC (Bld) 0 % Normal 0-2 [facility] Comment on above: Performed By: #### B MP, MG, CDP, IOCAL, LIVP ####[address] [address])[phone] Director: Jose Miguel Davis MD Eosinophils/100 WBC (Bld) 0 % Low 1-4 [facility] Comment on above: Performed By: #### B MP, MG, CDP, IOCAL, LIVP ####[address] [address])[phone] Director: Jose Miguel Davis MD Erythrocyte distribution width (RBC) [Ratio] 15.9 % High 11.8-14.4 [facility] Comment on above: Performed By: #### B MP, MG, CDP, IOCAL, LIVP ####[facility] [address] [place] [address])[phone] Director: Jose Miguel Davis MD Hematocrit (Bld) [Volume fraction] 37.9 % Normal 36.3-47.1 [facility] Comment on above: Performed By: #### B MP, MG, CDP, IOCAL, LIVP ####[facility] [address] [place] [address])[phone] Director: Jose Miguel Davis MD Hemoglobin (Bld) [Mass/Vol] 11.8 g/dL Low 11.9-15.1 [facility] Comment on above: Performed By: #### B MP, MG, CDP, IOCAL, LIVP ####[address] [address])[phone] Director: Jose Miguel Davis MD Immature granulocytes/100 WBC (Bld) 0 % Normal 0 [facility] Comment on above: Performed By: #### B MP, MG, CDP, IOCAL, LIVP ####[address] [phone])[phone] Director: Jose Miguel Davis MD Lymphocytes (Bld) [#/Vol] 1.10 10*3/uL Normal 1.10-3.70 [facility] Comment on above: Performed By: #### B MP, MG, CDP, IOCAL, LIVP ####[facility] [address] [place] [address] [phone])[phone] Director: Jose Miguel Davis MD Lymphocytes/100 WBC (Bld) 9 % Low 24-43 [facility] Comment on above: Performed By: #### B MP, MG, CDP, IOCAL, LIVP ####[facility] [address]hbvp6[address] [place], [place] [phone] Director: Jose Miguel Davis MD MCH (RBC) [Entitic mass] 28.5 pg Normal 25.2-33.5 [facility] Comment on above: Performed By: #### B MP, MG, CDP, IOCAL, LIVP ####[facility] Efrw[address] [place], [place] [phone] Director: Jose Miguel Davis MD MCHC (RBC) [Mass/Vol] 31.1 g/dL Normal 28.4-34.8 [facility] Comment on above: Performed By: #### B MP, MG, CDP, IOCAL, LIVP ####[facility] [address] [place] [address] [phone])[phone] Director: Jose Miguel Davis MD MCV (RBC) [Entitic vol] 91.5 fL Normal 82.6-102.9 [facility] Comment on above: Performed By: #### B MP, MG, CDP, IOCAL, LIVP ####[facility] [address] [place] [address] [phone] Director: Jose Miguel Davis MD Monocytes (Bld) [#/Vol] 0.54 10*3/uL Normal 0.10-1.20 [facility] Comment on above: Performed By: #### B MP, MG, CDP, IOCAL, LIVP ####[address] [phone] Director: Jose Miguel Davis MD Monocytes/100 WBC (Bld) 5 % Normal 3-12 [facility] Comment on above: Performed By: #### B MP, MG, CDP, IOCAL, LIVP ####[address] [phone] Director: Jose Miguel Davis MD Neutrophil (Seg) 86 % High 36-65 [facility] Comment on above: Performed By: #### B MP, MG, CDP, IOCAL, LIVP ####[address] [address] Lab Director: Jose Miguel Davis MD NRBC Automated 0.0 per 100 WBC Normal 0.0 [facility] Comment on above: Performed By: #### B MP, MG, CDP, IOCAL, LIVP ####[address] [phone])[phone] Director: Jose Miguel Davis MD Platelet mean volume (Bld) [Entitic vol] 9.7 fL Normal 8.1-13.5 [facility] Comment on above: Performed By: #### B MP, MG, CDP, IOCAL, LIVP ####[place], [place] [address])[phone] Director: Jose Miguel Davis MD Platelets (Bld) [#/Vol] 181 10*3/uL Normal 138-453 [facility] Comment on above: Performed By: #### B MP, MG, CDP, IOCAL, LIVP ####[place], [place] [address])[phone] Director: Jose Miguel Davis MD RBC (Bld) [#/Vol] 4.14 10*6/uL Normal 3.95-5.11 [facility] Comment on above: Performed By: #### B MP, MG, CDP, IOCAL, LIVP ####[address] [address])[phone] Director: Jose Miguel Davis MD RBC morphology finding Nom (Bld) ANISOCYTOSIS PRESENT Normal [facility] Comment on above: Performed By: #### B MP, MG, CDP, IOCAL, LIVP ####[address] [phone] Director: Jose Miguel Davis MD WBC (Bld) [#/Vol] 11.7 10*3/uL High 3.5-11.3 [facility] Comment on above: Performed By: #### B MP, MG, CDP, IOCAL, LIVP ####[employer] [address]cs[address]879 [place] [address] Lab Director: Jose Miguel Davis MD Calcium, Ionicon 04-11-2025 Calcium [Moles/Vol] 1.06 mmol/L Low 1.13-1.33 [facility] Comment on above: Performed By: #### B MP, MG, CDP, IOCAL, LIVP ####[facility] Qudiyztkvgyc3471 [place] [address] lab Director: Jose Miguel Davis MD Calcium, Ionizedon Calcium.ionized (Bld) [Moles/Vol] 1.06 mmol/L Low 1.13 - 1.33 mmol/L [facility] Interpretation and review of laboratory results [facility] Glucose,Whole Bloodon 2024 Glucose [Mass/Vol] 302 mg/dL High 65-105 [facility] Hepatic Function Panelon Albumin [Mass/Vol] 3.4 g/dL Low 3.5 - 5.2 g/dL [facility] Albumin/Globulin [Mass ratio] 1.4 {ratio} 1.0 - 2.5 [facility] ALP [Catalytic activity/Vol] 59 U/L 35 - 104 U/L [facility] ALT [Catalytic activity/Vol] 35 U/L 10 - 35 U/L [facility] AST [Catalytic activity/Vol] 73 U/L High 10 - 35 U/L [facility] Bilirubin [Mass/Vol] 1 mg/dL 0.0 - 1 .2 mg/dL [facility] Bilirubin.direct [Mass/Vol] 0.4 mg/dL High 0.0 - 0.2 mg/dL [facility] Bilirubin.indirect [Mass/Vol] 0.6 mg/dL 0.0 - 1.0 mg/dL [facility] Globulin (S) [Mass/Vol] 2.5 g/dL [facility] Protein [Mass/Vol] 5.9 g/dL Low 6.6 - 8.7 g/dL [facility] Latasha [facility] Liver Profileon 04-11-2025 Albumin [Mass/Vol] 3.4 g/dL Low 3.5-5.2 [facility] Comment on above: Performed By: #### B MP, MG, CDP, IOCAL, LIVP ####[facility] [address] [place], [place] [phone] Director: Jose Miguel Davis MD Albumin/Glob Ratio 1.4 Normal 1.0-2.5 [facility] Comment on above: Performed By: #### B MP, MG, CDP, IOCAL, LIVP ####[facility] [address]so[address] [place] [address] Lab Director: Jose Miguel Davis MD Alkaline Phos 59 U/L Normal 35-104 [facility] Comment on above: Performed By: #### B MP, MG, CDP, IOCAL, LIVP ####[facility] [address]wh[address] [place] [address] Lab Director: Jose Miguel Davis MD ALT [Catalytic activity/Vol] 35 U/L Normal 10-35 [facility] Comment on above: Performed By: #### B MP, MG, CDP, IOCAL, LIVP ####[facility] [address]morfj[address] [place] [address] Lab Director: Jose Miguel Davis MD AST [Catalytic activity/Vol] 73 U/L High 10-35 [facility] Comment on above: Performed By: #### B MP, MG, CDP, IOCAL, LIVP ####[facility] [address]rls[address]98 [place], [place] [phone] Director: Jose Miguel Davis MD Bilirubin [Mass/Vol] 1.0 mg/dL Normal 0.0-1.2 [facility] Comment on above: Performed By: #### B MP, MG, CDP, IOCAL, LIVP ####[facility] [address]wsqh5406 [place] [address] Lab Director: Jose Miguel Davis MD Bilirubin, Indirect 0.6 mg/dL Normal 0.0-1.0 [facility] Comment on above: Performed By: #### B MP, MG, CDP, IOCAL, LIVP ####[facility] [address] [place] [address] lab Director: Jose Miguel Davis MD Bilirubin.indirect [Mass/Vol] 0.4 mg/dL High 0.0-0.2 [facility] Comment on above: Performed By: #### B MP, MG, CDP, IOCAL, LIVP ####[facility] [address]xwsp[address]impgr[address]53 [place] [address] Lab Director: Jose Miguel Davis MD Globulin (S) [Mass/Vol] 2.5 g/dL Normal [facility] Comment on above: Performed By: #### B MP, MG, CDP, IOCAL, LIVP ####[facility] [address] [place] [address] Lab Director: Jose Miguel Davis MD Protein [Mass/Vol] 5.9 g/dL Low 6.6-8.7 [facility] Comment on above: Performed By: #### B MP, MG, CDP, IOCAL, LIVP ####[facility] [address] [place] [address] Lab Director: Jose Miguel Davis MD Magnesiumon 04-11-2025 Magnesium [Mass/Vol] 1.8 mg/dL 1.6 - 2 .4 mg/dL [facility] Magnesium [Mass/Vol] 1.8 mg/dL Normal 1.6-2.4 [facility] Comment on above: Performed By: #### B MP, MG, CDP, IOCAL, LIVP ####[facility] [address] [place] [address] Lab Director: Jose Miguel Davis MD No Panel Informationon 04-11 Interpretation and review of laboratory results Abnormal [facility] POC Glucose Fingerstickon Glucose [Mass/Vol] 302 mg/dL High 65 - 105 mg/dL [facility] Interpretation and review of laboratory results Abnormal [facility] Basic Metabolic Panelon Anion gap [Moles/Vol] 15 mmol/L 9 - 16 mmol/L [facility] Calcium [Mass/Vol] 8.3 mg/dL Low 8.6 - 10. 4 mg/dL [facility] Chloride [Moles/Vol] 102 mmol/L 98 - 10 7 mmol/L [facility] CO2 [Moles/Vol] 26 mmol/L 20 - 31 mmol/L [facility] Creatinine [Mass/Vol] 0.9 mg/dL 0.6 - 0.9 mg/dL [facility] Est, Glom Filt Rate 67 - PINF [facility] Comment on above: These results [...] 219 mg/dL High 74 - 99 mg/dL [facility] Potassium [Moles/Vol] 4 mmol/L 3.7 - 5.3 mmol/L [facility] Comment on above: Specimen hemolysis h as exceeded the interference as defined by Ranjith. Value may be falsely increased. Suggest recollection if clinically indicated. Sodium [Moles/Vol] 143 mmol/L 136 - 145 mmol/L [facility] Urea nitrogen [Mass/Vol] 16 mg/dL 8 - 23 mg/dL [facility] Basic Metabolic Profon 04-10 Anion gap [Moles/Vol] 15 mmol/L Normal 9-16 [facility] Comment on above: Performed By: #### M G, BMP, CDP ####[address] [place], [place] [id number])[phone] Director: Jose Miguel Davis MD Calcium [Mass/Vol] 8.3 mg/dL Low 8.6-10.4 [facility] Comment on above: Performed By: #### CATHERINE Anderson, CDP ####[facility] [address] [place] [address] [phone] Director: Jose Miguel Davis MD Chloride [Moles/Vol] 102 mmol/L Normal 98-107 [facility] Comment on above: Performed By: #### CATHERINE Anderson, CDP ####[facility] [address] [place], [place] [phone] Director: Jose Miguel Davis MD CO2 [Moles/Vol] 26 mmol/L Normal 20-31 [facility] Comment on above: Performed By: #### CATHERINE Anderson, CDP ####[facility] [address] [place] [address] [phone] Director: Jose Miguel Davis MD Creatinine [Mass/Vol] 0.9 mg/dL Normal 0.6-0.9 [facility] Comment on above: Performed By: #### CATHERINE Anderson, CDP ####[facility] [address] [place] [address] [phone] Director: Jose Miguel Davis MD GFR/1.73 sq M.predicted among non-blacks MDRD (S/P/Bld) [Vol rate/Area] 67 mL/min/{1.73_m2} Normal >60 [facility] Comment on above: Result Comment: These [...] renal tubular secretion. Performed By: #### CATHERINE Anedrson, CDP ####[facility] [address] [place] [address] Lab Director: Jose Miguel Davis MD Glucose [Mass/Vol] 219 mg/dL High 74-99 [facility] Comment on above: Performed By: #### CATHERINE Anderson, CDP ####[facility] [address] [place] [address] Lab Director: Jose Miguel Davis MD Potassium [Moles/Vol] 4.0 mmol/L Normal 3.7-5.3 [facility] Comment on above: Result Comment: Spec imen hemolysis has exceeded the interference as defined by Ranjith. Value may be falsely increased. Suggest recollection if clinically indicated. Performed By: #### CATHERINE Anderson, CDP ####[facility] [address] [place], [place] [phone] Director: Jose Miguel Davis MD Sodium [Moles/Vol] 143 mmol/L Normal 136-145 [facility] Comment on above: Performed By: #### CATHERINE Anderson, CDP ####[facility] [address] [place] [address] Lab Director: Jose Miguel Davis MD Urea nitrogen [Mass/Vol] 16 mg/dL Normal 8-23 [facility] Comment on above: Performed By: #### CATHERINE Anderson, CDP ####[facility] [address] [place], [place] [phone] Director: Jose Miguel Davis MD CBC with Auto Differentialon 04-10-2025 Basophils (Bld) [#/Vol] 0.05 10*3/uL [facility] Basophils/100 WBC (Bld) 1 % 0 - 2 % [facility] Eosinophils (Bld) [#/Vol] [facility] Eosinophils/100 WBC (Bld) 0 % Low 1 - 4 % [facility] Erythrocyte distribution width (RBC) [Ratio] 16.1 % High 11.8 - 14.4 % [facility] Hematocrit (Bld) [Volume fraction] 40.8 % 36.3 - 47.1 % [facility] Hemoglobin (Bld) [Mass/Vol] 13 g/dL 11.9 - 15.1 g/dL [facility] Immature granulocytes (Bld) [#/Vol] 0.05 10*3/uL [facility] Immature granulocytes/100 WBC (Bld) 1 % High 0 [facility] Interpretation and review of laboratory results Abnormal [facility] Lymphocytes/100 WBC (Bld) 13 % Low 24 - 43 % [facility] Lymphocytes/100 WBC (Bld) 1.24 % [facility] MCH (RBC) [Entitic mass] 29.2 pg 25.2 - 33.5 pg [facility] MCHC (RBC) [Mass/Vol] 31.9 g/dL 28.4 - 34.8 g/dL [facility] MCV (RBC) [Entitic vol] 91.7 fL 82.6 - 102.9 fL [facility] Monocytes/100 WBC (Bld) 2 % Low 3 - 12 % [facility] Monocytes/100 WBC (Bld) 0.2 % [facility] Neutrophils/100 WBC (Bld) 83 % High 36 - 65 % [facility] Nucleated RBC/100 WBC (Bld) [Ratio] 0 % 0.0 per 100 WBC [facility] Platelet mean volume (Bld) [Entitic vol] 9.2 fL 8.1 - 13.5 fL [facility] Platelets (Bld) [#/Vol] 195 10*3/uL [facility] RBC (Bld) [#/Vol] 4.45 10*6/uL 3.95 - 5.1 1 m/uL [facility] RBC (Bld) [#/Vol] ANISOCYTOSIS PRESENT [facility] Segmented neutrophils/100 WBC (Bld) 8.09 % [facility] WBC other (Bld) [#/Vol] 9.7 [facility] CBC with Diffon 04-10-2025 Abs. Basophil 0.05 k/uL Normal 0.00-0.20 [facility] Comment on above: Performed By: #### CATHERINE Anderson, CDP ####[facility] [address] [place], [place] [address])[phone] Director: Jose Miguel Davis MD Abs. Eosinophil <0.03 Normal 0.00-0.44 [facility] Comment on above: Performed By: #### CATHERINE Anderson, CDP ####[facility] [address] [place], [place] [address])[phone] Director: Jose Miguel Davis MD Abs.Imm.Granulocyte 0.05 k/uL Normal 0.00-0.30 [facility] Comment on above: Performed By: #### CATHERINE Anderson, CDP ####[facility] [address] [place] [address])[phone] Director: Jose Miguel Davis MD Abs.Neutrophil (Seg) 8.09 k/uL Normal 1.50-8.10 [facility] Comment on above: Performed By: #### CATHERINE Anderson, CDP ####[facility] [address] [place] [address])[phone] Director: Jose Miguel Davis MD Basophils/100 WBC (Bld) 1 % Normal 0-2 [facility] Comment on above: Performed By: #### CATHERINE Anderson, CDP ####[facility] [address] [place] [address])[phone] Director: Jose Miguel Davis MD Eosinophils/100 WBC (Bld) 0 % Low 1-4 [facility] Comment on above: Performed By: #### CATHERINE Anderson, CDP ####[facility] [address] [place], [place] [address])[phone] Director: Jose Miguel Davis MD Erythrocyte distribution width (RBC) [Ratio] 16.1 % High 11.8-14.4 [facility] Comment on above: Performed By: #### CATHERINE Anderson, CDP ####[facility] [address] [place], [place] [phone] Director: Jose Miguel Davis MD Hematocrit (Bld) [Volume fraction] 40.8 % Normal 36.3-47.1 [facility] Comment on above: Performed By: #### CATHERINE Anderson, CDP ####[facility] [address] [place], [place] [phone] Director: Jose Miguel Davis MD Hemoglobin (Bld) [Mass/Vol] 13.0 g/dL Normal 11.9-15.1 [facility] Comment on above: Performed By: #### CATHERINE Anderson, CDP ####[facility] [address] [place], [place] [address])[phone] Director: Jose Miguel Davis MD Immature granulocytes/100 WBC (Bld) 1 % High 0 [facility] Comment on above: Performed By: #### CATHERINE Anderson, CDP ####[facility] [address] [place], [place] [phone] Director: Jose Miguel Davis MD Lymphocytes (Bld) [#/Vol] 1.24 10*3/uL Normal 1.10-3.70 [facility] Comment on above: Performed By: #### CATHERINE Anderson, CDP ####[facility] [address] [place], [place] [phone] Director: Jose Miguel Davis MD Lymphocytes/100 WBC (Bld) 13 % Low 24-43 [facility] Comment on above: Performed By: #### CATHERINE Anderson, CDP ####[facility] [address] [place], [place] [phone] Director: Jose Miguel Davis MD MCH (RBC) [Entitic mass] 29.2 pg Normal 25.2-33.5 [facility] Comment on above: Performed By: #### CATHERINE Anderson, CDP ####[facility] [address] [place], [place] [phone] Director: Jose Miguel Davis MD MCHC (RBC) [Mass/Vol] 31.9 g/dL Normal 28.4-34.8 [facility] Comment on above: Performed By: #### CATHERINE Anderson, CDP ####[facility] [address] [place], [place] [phone] Director: Jose Miguel Davis MD MCV (RBC) [Entitic vol] 91.7 fL Normal 82.6-102.9 [facility] Comment on above: Performed By: #### CATHERINE Anderson, CDP ####[facility] [address] [place], [place] [phone] Director: Jose Miguel Davis MD Monocytes (Bld) [#/Vol] 0.20 10*3/uL Normal 0.10-1.20 [facility] Comment on above: Performed By: #### CATHERINE Anderson, CDP ####[facility] [address] [place] [address] [phone] Director: Jose Miguel Davis MD Monocytes/100 WBC (Bld) 2 % Low 3-12 [facility] Comment on above: Performed By: #### CATHERINE Anderson, CDP ####[facility] [address] [place], [place] [phone] Director: Jose Miguel Davis MD Neutrophil (Seg) 83 % High 36-65 [facility] Comment on above: Performed By: #### CATHERINE Anderson, CDP ####[facility] [address] [place], [place] [phone] Director: Jose Miguel Davis MD NRBC Automated 0.0 per 100 WBC Normal 0.0 [facility] Comment on above: Performed By: #### CATHERINE Anderson, CDP ####[facility] [address] [place], [place] [phone] Director: Jose Miguel Davis MD Platelet mean volume (Bld) [Entitic vol] 9.2 fL Normal 8.1-13.5 [facility] Comment on above: Performed By: #### CATHERINE Anderson, CDP ####[address] [address] Lab Director: Jose Miguel Davis MD Platelets (Bld) [#/Vol] 195 10*3/uL Normal 138-453 [facility] Comment on above: Performed By: #### CATHERINE Anderson, CDP ####[address] [address] Lab Director: Jose Miguel Davis MD RBC (Bld) [#/Vol] 4.45 10*6/uL Normal 3.95-5.11 [facility] Comment on above: Performed By: #### CATHERINE Anderson, CDP ####[address] [address] Lab Director: Jose Miguel Davis MD RBC morphology finding Nom (Bld) ANISOCYTOSIS PRESENT Normal [facility] Comment on above: Performed By: #### CATHERINE Anderson, CDP ####[address] [address] Lab Director: Jose Miguel Davis MD WBC (Bld) [#/Vol] 9.7 10*3/uL Normal 3.5-11.3 [facility] Comment on above: Performed By: #### CATHERINE Anderson, CDP ####[address] [address] Lab Director: Jose Miguel Davis MD Calcium, Ionicon 04-10-2025 Calcium [Moles/Vol] 1.05 mmol/L Low 1.13-1.33 [facility] Comment on above: Performed By: #### I OCAL ####[facility] [place] [address] Lab Director: Jose Miguel Davis MD Calcium, Ionizedon Calcium.ionized (Bld) [Moles/Vol] 1.05 mmol/L Low 1.13 - 1.33 mmol/L [facility] Interpretation and review of laboratory results Abnormal [facility] Glucose (POC)on 04-10-2025 Glucose [Mass/Vol] 150 mg/dL High 74-100 [facility] Glucose,Whole Bloodon 2024 Glucose [Mass/Vol] 199 mg/dL High 65-105 [facility] Glucose [Mass/Vol] 200 mg/dL High 65-105 [facility] Magnesiumon 04-10-2025 Magnesium [Mass/Vol] 1.1 mg/dL Low 1.6 - 2 .4 mg/dL [facility] Magnesium [Mass/Vol] 1.1 mg/dL Low 1.6-2.4 [facility] Comment on above: Performed By: #### M G, BMP, CDP ####[facility] [address] [place] [phone] [facility] Director: Jose Miguel Davis MD No Panel Informationon 04-10 Interpretation and review of laboratory results Abnormal [facility] POC Glucose Fingerstickon Glucose [Mass/Vol] 199 mg/dL High 65 - 105 mg/dL [facility] Interpretation and review of laboratory results Abnormal [facility] Glucose [Mass/Vol] 200 mg/dL High 65 - 105 mg/dL [facility] Interpretation and review of laboratory results Abnormal [facility] POCT Glucoseon 04-10-2025 Glucose [Mass/Vol] 150 mg/dL High 74 - 100 mg/dL [facility] Interpretation and review of laboratory results Abnormal [facility] POTASSIUM (POC)on 04-10-2025 Potassium [Moles/Vol] 3.6 mmol/L 3.5 - 4.5 mmol/L [facility] PREVIOUS SPECIMENon 04-10-20 25 [facility] Potassium (POC)on 04-10-2025 Potassium [Moles/Vol] 3.6 mmol/L Normal 3.5-4.5 Janessa [facility] Surgical Pathology Reporton 04-10-2025 Surgical Pathology Report (NOTE) Path Number: [id number] -- Diagnosis -- GALLBLADDER, CHOLECYSTECTOMY: - CHRONIC [...] lesions or periductal lymph nodes are identified. Drying Room Supervisor sections 1c. tm Kimberly Avila/se:04/11/2025 Microscopic Description Microscopic examination performed. Processing Lab: [address] [address] Interpretation Performed at [address] [phone] SURGICAL PATHOLOGY CONSULTATION Patient Name: TOSHA MCNEAL [facility] Rec: [id number] [facility] ANATOMIC PATHOLOGY [address] [place] [address]. [place], [place] [address] Normal [facility] Office Visiton 03-26-2025 Follow-up visit [id number] Renee Mcneal 1950 F Date Provider Department Center 03/26/2025 Jenniffer-[facility]FRED [facility] Family History Problem Relation Age of Onset Coronary artery disease Father Heart attack Father Family Status - Relation Status Age at Mother Father Sister Alive Level of Service:62459 DE OFFICE/OUTPATIENT ESTABLISHED MOD MDM 30 MIN Reason for Visit and Comments: Congestive Heart Failure [127] Hypertension [898584] Hyperlipidemia [182] Normal [facility] COMPREHENSIVE METABOLIC PANE Heladio 03-21-2025 Albumin [Mass/Vol] 4.1 g/dL Normal 3.2-5.3 [facility] Comment on above: Performed By: #### C MP #### [facility] ([facility]) [address] [place] [address] VIR ALP [Catalytic activity/Vol] 62 U/L Normal 39-130 [facility] Comment on above: Performed By: #### C MP #### [facility] ([facility]) [address] [place] [address] VIR ALT [Catalytic activity/Vol] 32 U/L High <=31 [facility] Comment on above: Performed By: #### C MP #### [facility] ([facility]) [address] [place] [address] VIR Anion gap [Moles/Vol] 17 mmol/L High 5-15 [facility] Comment on above: Performed By: #### C MP #### [facility] ([facility]) [address] [place] [address] VIR AST [Catalytic activity/Vol] 31 U/L Normal <=41 [facility] Comment on above: Performed By: #### C MP #### [facility] ([facility]) [address] [place] [address] VIR Bilirubin [Mass/Vol] 0.9 mg/dL Normal 0.3-1.2 [facility] Comment on above: Performed By: #### C MP #### [facility] ([facility]) [address] [place] [address] VIR Calcium [Mass/Vol] 10.1 mg/dL Normal 8.5-10.5 [facility] Comment on above: Performed By: #### C MP #### [facility] ([facility]) [address] [place] [address] VIR Chloride [Moles/Vol] 98 mmol/L Normal 98-109 [facility] Comment on above: Performed By: #### C MP #### [facility] ([facility]) [address] [place] [address] VIR CO2 [Moles/Vol] 28 mmol/L Normal 22-32 [facility] Comment on above: Performed By: #### C MP #### [facility] ([facility]) [address] [place] [address] VIR Creatinine [Mass/Vol] 0.98 mg/dL Normal 0.40-1.00 [facility] Comment on above: Result Comment: METH OD TRACEABLE TO IDMS STANDARD Performed By: #### C MP #### [facility] ([facility]) [address] [place] [address] VIR GFR/1.73 sq M.predicted among non-blacks MDRD (S/P/Bld) [Vol rate/Area] 60 mL/min/{1.73_m2} Normal >=60 [facility] Comment on above: Result Comment: Repo rted eGFR is based on the CKD-EPI 2020 equation that does not use a race coefficient. Performed By: #### C MP #### [facility] ([facility]) [address] [place] [address] VIR Glucose [Mass/Vol] 131 mg/dL High 65-99 [facility] Comment on above: Performed By: #### C MP #### [facility] ([facility]) [address] [place] [address] VIR Potassium [Moles/Vol] 3.9 mmol/L Normal 3.5-5.0 [facility] Comment on above: Performed By: #### C MP #### [facility] ([facility]) [address] [place] [address] VIR Protein [Mass/Vol] 7.0 g/dL Normal 6.0-8.0 [facility] Comment on above: Performed By: #### C MP #### [facility] ([facility]) [address] [place] [address] VIR Sodium [Moles/Vol] 143 mmol/L Normal 134-146 [facility] Comment on above: Performed By: #### C MP #### [facility] ([facility]) [address] [place] [address] VIR Urea nitrogen [Mass/Vol] 31 mg/dL High 5-27 [facility] Comment on above: Performed By: #### C MP #### [facility] ([facility]) [address] [place] [address] VIR Comprehensive metabolic pane heladio 03-21-2025 Albumin [Mass/Vol] 4.1 g/dL 3.2 - 5.3 g/dL [facility] ALP [Catalytic activity/Vol] 62 U/L 39 - 130 U/L [facility] ALT No additional P-5'-P [Catalytic activity/Vol] 32 U/L High NINF - 31 U/L [facility] Anion gap [Moles/Vol] 17 mmol/L High 5 - 15 mmol/L [facility] AST [Catalytic activity/Vol] 31 U/L NINF - 41 U/L [facility] Bilirubin [Mass/Vol] 0.9 mg/dL 0.3 - 1 .2 mg/dL [facility] Calcium [Mass/Vol] 10.1 mg/dL 8.5 - 10. 5 mg/dL [facility] Chloride [Moles/Vol] 98 mmol/L 98 - 10 9 mmol/L [facility] CO2 [Moles/Vol] 28 mmol/L 22 - 32 mmol/L [facility] Creatinine [Mass/Vol] 0.98 mg/dL 0.40 - 1.00 mg/dL [facility] Comment on above: METHOD TRACEABLE TO IDMS STANDARD EGFR Non-Race Dependent 60 - PINF [facility] Comment on above: Reported eGFR is bas ed on the CKD-EPI 2020 equation that does not use a race coefficient. Glucose [Mass/Vol] 131 mg/dL High 65 - 99 mg/dL [facility] Interpretation and review of laboratory results Abnormal [facility] Potassium [Moles/Vol] 3.9 mmol/L 3.5 - 5.0 mmol/L [facility] Protein [Mass/Vol] 7 g/dL 6.0 - 8.0 g/dL [facility] Sodium [Moles/Vol] 143 mmol/L 134 - 146 mmol/L [facility] Urea nitrogen [Mass/Vol] 31 mg/dL High 5 - 27 mg/dL [facility] HEMOGLOBIN A1Con 03-21-2025 Glucose [Mass/Vol] 206 mg/dL Normal [facility] Comment on above: Performed By: #### H A1C #### [facility] ([facility]) [address] [place] [address] VIR HbA1c (Bld) [Mass fraction] 8.8 % High 4.4-5.6 [facility] Comment on above: Result Comment: ADA Guidelines Result HgbA1c Normal : less than 5.7 % Prediabetes : 5.7 % to 6.4 % Diabetes : > 6.4 % Use with caution in patients with abnormal hemoglobin variants as the half-life of red blood cells and in vivo glycation rates are affected. Performed By: #### H A1C #### [facility] ([facility]) [address] [place] [address] VIR Hemoglobin A1con 03-21-2025 Average glucose Estimated from glycated hemoglobin (Bld) [Mass/Vol] 206 mg/dL [facility] HbA1c (Bld) [Mass fraction] 8.8 % High 4.4 - 5.6 % [facility] Comment on above: ADA Guidelines Result HgbA1c Normal : less than 5.7 % Prediabetes : 5.7 % to 6.4 % Diabetes : > 6.4 % Use with caution in patients with abnormal hemoglobin variants as the half-life of red blood cells and in vivo glycation rates are affected. Interpretation and review of laboratory results Abnormal [facility] CBC with Auto Differentialon 03-10-2025 Basophils (Bld) [#/Vol] 0.07 10*3/uL [facility] Basophils/100 WBC (Bld) 1 % 0 - 2 % [facility] Eosinophils (Bld) [#/Vol] 0.12 10*3/uL [facility] Eosinophils/100 WBC (Bld) 1 % 1 - 4 % [facility] Erythrocyte distribution width (RBC) [Ratio] 15.9 % High 11.8 - 14.4 % [facility] Hematocrit (Bld) [Volume fraction] 41.6 % 36.3 - 47.1 % [facility] Hemoglobin (Bld) [Mass/Vol] 12.6 g/dL 11.9 - 15.1 g/dL [facility] Immature granulocytes (Bld) [#/Vol] 0.25 10*3/uL [facility] Immature granulocytes/100 WBC (Bld) 2 % High 0 [facility] Interpretation and review of laboratory results Abnormal [facility] Lymphocytes/100 WBC (Bld) 13 % Low 24 - 43 % [facility] Lymphocytes/100 WBC (Bld) 1.37 % [facility] MCH (RBC) [Entitic mass] 28.1 pg 25.2 - 33.5 pg [facility] MCHC (RBC) [Mass/Vol] 30.3 g/dL 28.4 - 34.8 g/dL [facility] MCV (RBC) [Entitic vol] 92.7 fL 82.6 - 102.9 fL [facility] Monocytes/100 WBC (Bld) 6 % 3 - 12 % [facility] Monocytes/100 WBC (Bld) 0.63 % [facility] Neutrophils/100 WBC (Bld) 77 % High 36 - 65 % [facility] Nucleated RBC/100 WBC (Bld) [Ratio] 0 % 0.0 per 100 WBC [facility] Platelet mean volume (Bld) [Entitic vol] 10.2 fL 8.1 - 13.5 fL [facility] Platelets (Bld) [#/Vol] 238 10*3/uL [facility] RBC (Bld) [#/Vol] 4.49 10*6/uL 3.95 - 5.1 1 m/uL [facility] RBC (Bld) [#/Vol] ANISOCYTOSIS PRESENT [facility] Segmented neutrophils/100 WBC (Bld) 7.91 % [facility] WBC other (Bld) [#/Vol] 10.4 [facility] CBC with Diffon 03-10-2025 Abs. Basophil 0.07 k/uL Normal 0.00-0.20 [facility] Comment on above: Performed By: #### C P, MG, CDP ####[place], [place] [address])[phone] Director: Jose Miguel Davis MD Abs.Imm.Granulocyte 0.25 k/uL Normal 0.00-0.30 [facility] Comment on above: Performed By: #### C P, MG, CDP ####[facility] [address] [place], [place] [address])[phone] Director: Jose Miguel Davis MD Abs.Neutrophil (Seg) 7.91 k/uL Normal 1.50-8.10 [facility] Comment on above: Performed By: #### C P, MG, CDP ####[facility] [address] [place], [place] [address])[phone] Director: Jose Miguel Davis MD Basophils/100 WBC (Bld) 1 % Normal 0-2 [facility] Comment on above: Performed By: #### C P, MG, CDP ####[facility] [facility] Xlcygrtlxvcw76[address] [place], [place] [address])[phone] Director: Jose Miguel Davis MD Eosinophils (Bld) [#/Vol] 0.12 10*3/uL Normal 0.00-0.44 [facility] Comment on above: Performed By: #### C P, MG, CDP ####[facility] [address] [place], [place] [address])[phone] Director: Jose Miguel Davis MD Eosinophils/100 WBC (Bld) 1 % Normal 1-4 [facility] Comment on above: Performed By: #### C P, MG, CDP ####[facility] Bpdgtvphivak35[address] [place], [place] [phone])[phone] Director: Jose Miguel Davis MD Erythrocyte distribution width (RBC) [Ratio] 15.9 % High 11.8-14.4 [facility] Comment on above: Performed By: #### C P, MG, CDP ####[facility] Eyacfysbhend45[address] [place], [place] [address])[phone] Director: Jose Miguel Davis MD Hematocrit (Bld) [Volume fraction] 41.6 % Normal 36.3-47.1 [facility] Comment on above: Performed By: #### C P, MG, CDP ####[facility] Afxujkyhprbw1037 [place], [place] [address])[phone] Director: Jose Miguel Davis MD Hemoglobin (Bld) [Mass/Vol] 12.6 g/dL Normal 11.9-15.1 [facility] Comment on above: Performed By: #### C P, MG, CDP ####[facility] Gjqakodsjyzm2782 [place], [place] [address])[phone] Director: Jose Miguel Davis MD Immature granulocytes/100 WBC (Bld) 2 % High 0 [facility] Comment on above: Performed By: #### C P, MG, CDP ####[facility] Nacqmymdtskg3483 [place], [place] [address])[phone] Director: Jose Miguel Davis MD Lymphocytes (Bld) [#/Vol] 1.37 10*3/uL Normal 1.10-3.70 [facility] Comment on above: Performed By: #### C P, MG, CDP ####[facility] Ogkxqpshyfpy1501 [place], [place] [address])[phone] Director: Jose Miguel Davis MD Lymphocytes/100 WBC (Bld) 13 % Low 24-43 [facility] Comment on above: Performed By: #### C P, MG, CDP ####[facility] Lumulttnvfru0224 [place], [place] [phone] Director: Jose Miguel Davis MD MCH (RBC) [Entitic mass] 28.1 pg Normal 25.2-33.5 [facility] Comment on above: Performed By: #### C P, MG, CDP ####[facility] Qkuhnwmbvawy1661 [place], [place] [phone] Director: Jose Miguel Davis MD MCHC (RBC) [Mass/Vol] 30.3 g/dL Normal 28.4-34.8 [facility] Comment on above: Performed By: #### C P, MG, CDP ####[facility] [address] [place] [address] [phone])[phone] Director: Jose Miguel Davis MD MCV (RBC) [Entitic vol] 92.7 fL Normal 82.6-102.9 [facility] Comment on above: Performed By: #### C P, MG, CDP ####[facility] [address] [place] [address] [id number])[phone] Director: Jose Miguel Davis MD Monocytes (Bld) [#/Vol] 0.63 10*3/uL Normal 0.10-1.20 [facility] Comment on above: Performed By: #### C P, MG, CDP ####[facility] Ikwqbgjxjxqx8428 [place], [place] [id number])[phone] Director: Jose Miguel Davis MD Monocytes/100 WBC (Bld) 6 % Normal 3-12 [facility] Comment on above: Performed By: #### C P, MG, CDP ####[facility] Tfhomgodvzpa8293 [place], [place] [phone] Director: Jose Miguel Davis MD Neutrophil (Seg) 77 % High 36-65 [facility] Comment on above: Performed By: #### C P, MG, CDP ####[facility] [address] [place], [place] [address])[phone] Director: Jose Miguel Davis MD NRBC Automated 0.0 per 100 WBC Normal 0.0 [facility] Comment on above: Performed By: #### C P, MG, CDP ####[place], [place] [address])[phone] Director: Jose Miguel Davis MD Platelet mean volume (Bld) [Entitic vol] 10.2 fL Normal 8.1-13.5 [facility] Comment on above: Performed By: #### C P, MG, CDP ####[place], [place] [address])[phone] Director: Jose Miguel Davis MD Platelets (Bld) [#/Vol] 238 10*3/uL Normal 138-453 [facility] Comment on above: Performed By: #### C P, MG, CDP ####[place], [place] [address])[phone] Director: Jose Miguel Davis MD RBC (Bld) [#/Vol] 4.49 10*6/uL Normal 3.95-5.11 [facility] Comment on above: Performed By: #### C P, MG, CDP ####[place], [place] [address])[phone] Director: Jose Miguel Davis MD RBC morphology finding Nom (Bld) ANISOCYTOSIS PRESENT Normal [facility] Comment on above: Performed By: #### C P, MG, CDP ####[place], [place] [address])[phone] Director: Jose Miguel Davis MD WBC (Bld) [#/Vol] 10.4 10*3/uL Normal 3.5-11.3 [facility] Comment on above: Performed By: #### C P, MG, CDP ####[facility] Wkqimpzczlwr0113 [place], [place] [id number])[phone] Director: Jose Miguel Davis MD Comp Metabolic Profon 2024 Albumin [Mass/Vol] 2.6 g/dL Low 3.5-5.2 [facility] Comment on above: Performed By: #### C P, MG, CDP ####[facility] Arkykwrnvdav5191 [place], [place] [id number])[phone] Director: Jose Miguel Davis MD Albumin/Glob Ratio 0.9 Low 1.0-2.5 [facility] Comment on above: Performed By: #### C P, MG, CDP ####[facility] Kqxbenvtbpbt6239 [place], [place] [phone])[phone] Director: Jose Miguel Davis MD Alkaline Phos 70 U/L Normal 35-104 [facility] Comment on above: Performed By: #### C P, MG, CDP ####[facility] Liebkzftkixo4250 [place], [place] [id number])[phone] Director: Jose Miguel Davis MD ALT [Catalytic activity/Vol] 14 U/L Normal 10-35 [facility] Comment on above: Performed By: #### C P, MG, CDP ####[facility] Dqqixjbaloxr1783 [place], [place] [id number])[phone] Director: Jose Miguel Davis MD Anion gap [Moles/Vol] 13 mmol/L Normal 9-16 [facility] Comment on above: Performed By: #### C P, MG, CDP ####[facility] Ejnqeydyjoma9706 [place], [place] [id number])[phone] Director: Jose Miguel Davis MD AST [Catalytic activity/Vol] 20 U/L Normal 10-35 [facility] Comment on above: Performed By: #### C P, MG, CDP ####[facility] Nbtujvklcfbn2694 [place] [address] Lab Director: Jose Miguel Davis MD Bilirubin [Mass/Vol] 0.7 mg/dL Normal 0.0-1.2 [facility] Comment on above: Performed By: #### C P, MG, CDP ####[facility] Mqmpqbxrmuus5633 [place], [place] [id number])[phone] Director: Jose Miguel Davis MD Calcium [Mass/Vol] 8.0 mg/dL Low 8.6-10.4 [facility] Comment on above: Performed By: #### C P, MG, CDP ####[facility] Rulvtavcspyp6398 [place], [place] [address])[phone] Director: Jose Miguel Davis MD Chloride [Moles/Vol] 101 mmol/L Normal 98-107 [facility] Comment on above: Performed By: #### C P, MG, CDP ####[facility] [address] [place] [address])[phone] Director: Jose Miguel Davis MD CO2 [Moles/Vol] 25 mmol/L Normal 20-31 [facility] Comment on above: Performed By: #### C P, MG, CDP ####[facility] Xksmatxfydux9659 [place], [place] [id number])[phone] Director: Jose Miguel Davis MD Creatinine [Mass/Vol] 0.7 mg/dL Normal 0.6-0.9 [facility] Comment on above: Performed By: #### C P, MG, CDP ####[facility] Jipbnvohkqgy3691 [place], [place] [address])[phone] Director: Jose Miguel Davis MD GFR/1.73 sq M.predicted among non-blacks MDRD (S/P/Bld) [Vol rate/Area] mL/min/{1.73_m2} Normal >60 [facility] Comment on above: Result Comment: These [...] By: #### C P, MG, CDP ####[facility] Hmfknpptnjcq0569 [place], [place] [id number])[phone] Director: Jose Miguel Davis MD Glucose [Mass/Vol] 191 mg/dL High 74-99 [facility] Comment on above: Performed By: #### C P, MG, CDP ####[facility] [address] [place] [address] [phone])[phone] Director: Jose Miguel Davis MD Potassium [Moles/Vol] 3.2 mmol/L Low 3.7-5.3 [facility] Comment on above: Result Comment: Spec imen hemolysis has exceeded the interference as defined by Ranjith. Value may be falsely increased. Suggest recollection if clinically indicated. Performed By: #### C P, MG, CDP ####[facility] [address] [place] [address] [id number])[phone] Director: Jose Miguel Davis MD Protein [Mass/Vol] 5.4 g/dL Low 6.6-8.7 [facility] Comment on above: Performed By: #### C P, MG, CDP ####[facility] [address] [place] [address] [id number])[phone] Director: Jose Miguel Davis MD Sodium [Moles/Vol] 139 mmol/L Normal 136-145 [facility] Comment on above: Performed By: #### C P, MG, CDP ####[facility] Zlinmkgkqatd1578 [place], [place] [phone])[phone] Director: Jose Miguel Davis MD Urea nitrogen [Mass/Vol] 9 mg/dL Normal 8-23 [facility] Comment on above: Performed By: #### C P, MG, CDP ####[facility] Bmgoufkxmfbf8184 [place] [address] Lab Director: Jose Miguel Davis MD Comprehensive Metabolic Pane heladio 03-10-2025 Albumin [Mass/Vol] 2.6 g/dL Low 3.5 - 5.2 g/dL [facility] Albumin/Globulin [Mass ratio] 0.9 {ratio} Low 1.0 - 2.5 [facility] ALP [Catalytic activity/Vol] 70 U/L 35 - 104 U/L [facility] ALT [Catalytic activity/Vol] 14 U/L 10 - 35 U/L [facility] Anion gap [Moles/Vol] 13 mmol/L 9 - 16 mmol/L [facility] AST [Catalytic activity/Vol] 20 U/L 10 - 35 U/L [facility] Bilirubin [Mass/Vol] 0.7 mg/dL 0.0 - 1 .2 mg/dL [facility] Calcium [Mass/Vol] 8 mg/dL Low 8.6 - 10. 4 mg/dL [facility] Chloride [Moles/Vol] 101 mmol/L 98 - 10 7 mmol/L [facility] CO2 [Moles/Vol] 25 mmol/L 20 - 31 mmol/L [facility] Creatinine [Mass/Vol] 0.7 mg/dL 0.6 - 0.9 mg/dL [facility] Est, Glom Filt Rate - PINF [facility] Glucose [Mass/Vol] 191 mg/dL High 74 - 99 mg/dL [facility] Potassium [Moles/Vol] 3.2 mmol/L Low 3.7 - 5.3 mmol/L [facility] Protein [Mass/Vol] 5.4 g/dL Low 6.6 - 8.7 g/dL [facility] Sodium [Moles/Vol] 139 mmol/L 136 - 145 mmol/L [facility] Urea nitrogen [Mass/Vol] 9 mg/dL 8 - 23 mg/dL [facility] Glucose,Whole Bloodon 2024 Glucose [Mass/Vol] 252 mg/dL High 65-105 [facility] Glucose [Mass/Vol] 228 mg/dL High 65-105 [facility] Glucose [Mass/Vol] 184 mg/dL High 65-105 [facility] K (Potassium)/rfx MGon 03-10 Potassium [Moles/Vol] 3.6 mmol/L Low 3.7-5.3 [facility] Comment on above: Performed By: #### K X ####[facility] [address]uvltcojpri28[address] [place], [place] 1505408 [facility] Director: Jose Miguel Davis MD Magnesiumon 03-10-2025 Magnesium [Mass/Vol] 1.4 mg/dL Low 1.6 - 2 .4 mg/dL [facility] Magnesium [Mass/Vol] 1.4 mg/dL Low 1.6-2.4 [facility] Comment on above: Performed By: #### C P, MG, CDP ####[facility] Ylqpqrabtyiu1606 [place], [place] [id number] lab Director: Jose Miguel Davis MD No Panel Informationon 03-10 Interpretation and review of laboratory results Abnormal [facility] POC Glucose Fingerstickon Glucose [Mass/Vol] 252 mg/dL High 65 - 105 mg/dL [facility] Interpretation and review of laboratory results Abnormal [facility] Glucose [Mass/Vol] 228 mg/dL High 65 - 105 mg/dL [facility] Interpretation and review of laboratory results Abnormal [facility] Glucose [Mass/Vol] 184 mg/dL High 65 - 105 mg/dL [facility] Interpretation and review of laboratory results Abnormal [facility] Potassium w/ Reflex to Magne siumon 03-10-2025 Interpretation and review of laboratory results Abnormal [facility] Potassium [Moles/Vol] 3.6 mmol/L Low 3.7 - 5.3 mmol/L [facility] XR CHEST (2 VW)on 03-10-2025 XR CHEST [...] Irene Bravo MD 03/10/25 Final result Normal [facility] XR Chest 2 Viewson MHPN RIS CONSOLIDATED MHPN RIS CONSOLIDATED [facility] Radiology Study observation (narrative) [facility] XR Chest 2 ViewsOrdered By: Irene Bravo on 03-10-2025 [facility] Work Phone: CBC with Auto Differentialon 03-09-2025 Basophils (Bld) [#/Vol] 0.05 10*3/uL [facility] Basophils/100 WBC (Bld) 1 % 0 - 2 % [facility] Eosinophils (Bld) [#/Vol] 0.12 10*3/uL [facility] Eosinophils/100 WBC (Bld) 1 % 1 - 4 % [facility] Erythrocyte distribution width (RBC) [Ratio] 15.9 % High 11.8 - 14.4 % [facility] Hematocrit (Bld) [Volume fraction] 42.5 % 36.3 - 47.1 % [facility] Hemoglobin (Bld) [Mass/Vol] 12.8 g/dL 11.9 - 15.1 g/dL [facility] Immature granulocytes (Bld) [#/Vol] 0.33 10*3/uL High [facility] Immature granulocytes/100 WBC (Bld) 4 % High 0 [facility] Interpretation and review of laboratory results Abnormal [facility] Lymphocytes/100 WBC (Bld) 11 % Low 24 - 43 % [facility] Lymphocytes/100 WBC (Bld) 0.98 % Low [facility] MCH (RBC) [Entitic mass] 27.9 pg 25.2 - 33.5 pg [facility] MCHC (RBC) [Mass/Vol] 30.1 g/dL 28.4 - 34.8 g/dL [facility] MCV (RBC) [Entitic vol] 92.8 fL 82.6 - 102.9 fL [facility] Monocytes/100 WBC (Bld) 5 % 3 - 12 % [facility] Monocytes/100 WBC (Bld) 0.46 % [facility] Neutrophils/100 WBC (Bld) 78 % High 36 - 65 % [facility] Nucleated RBC/100 WBC (Bld) [Ratio] 0 % 0.0 per 100 WBC [facility] Platelet mean volume (Bld) [Entitic vol] 9.8 fL 8.1 - 13.5 fL [facility] Platelets (Bld) [#/Vol] 233 10*3/uL [facility] RBC (Bld) [#/Vol] 4.58 10*6/uL 3.95 - 5.1 1 m/uL [facility] RBC (Bld) [#/Vol] ANISOCYTOSIS PRESENT [facility] Segmented neutrophils/100 WBC (Bld) 6.96 % [facility] WBC other (Bld) [#/Vol] 8.9 [facility] CBC with Diffon 03-09-2025 Abs. Basophil 0.05 k/uL Normal 0.00-0.20 [facility] Comment on above: Performed By: #### C DP, MG, CP ####[facility] Ybypmtotgvqb1143 [place], [place] [id number])[phone] Director: Jose Miguel Davis MD Abs.Imm.Granulocyte 0.33 k/uL High 0.00-0.30 [facility] Comment on above: Performed By: #### C DP, MG, CP ####[address] [id number])[phone] Director: Jose Miguel Davis MD Abs.Neutrophil (Seg) 6.96 k/uL Normal 1.50-8.10 [facility] Comment on above: Performed By: #### C DP, MG, CP ####[place], [place] [address])[phone] Director: Jose Miguel Davis MD Basophils/100 WBC (Bld) 1 % Normal 0-2 [facility] Comment on above: Performed By: #### C DP, MG, CP ####[place], [place] [address])[phone] Director: Jose Miguel Davis MD Eosinophils (Bld) [#/Vol] 0.12 10*3/uL Normal 0.00-0.44 [facility] Comment on above: Performed By: #### C DP, MG, CP ####[address] [address])[phone] Director: Jose Miguel Davis MD Eosinophils/100 WBC (Bld) 1 % Normal 1-4 [facility] Comment on above: Performed By: #### C DP, MG, CP ####[facility] [address] [place], [place] [address])[phone] Director: Jose Miguel Davis MD Erythrocyte distribution width (RBC) [Ratio] 15.9 % High 11.8-14.4 [facility] Comment on above: Performed By: #### C DP, MG, CP ####[place], [place] [address])[phone] Director: Jose Miguel Davis MD Hematocrit (Bld) [Volume fraction] 42.5 % Normal 36.3-47.1 [facility] Comment on above: Performed By: #### C DP, MG, CP ####[facility] [address] [place] [address])[phone] Director: Jose Miguel Davis MD Hemoglobin (Bld) [Mass/Vol] 12.8 g/dL Normal 11.9-15.1 [facility] Comment on above: Performed By: #### C DP, MG, CP ####[facility] [address] [place] [address])[phone] Director: Jose Miguel Davis MD Immature granulocytes/100 WBC (Bld) 4 % High 0 [facility] Comment on above: Performed By: #### C DP, MG, CP ####[address] [address])[phone] Director: Jose Miguel Davis MD Lymphocytes (Bld) [#/Vol] 0.98 10*3/uL Low 1.10-3.70 [facility] Comment on above: Performed By: #### C DP, MG, CP ####[facility] [address] [place] [address])[phone] Director: Jose Miguel Davis MD Lymphocytes/100 WBC (Bld) 11 % Low 24-43 [facility] Comment on above: Performed By: #### C DP, MG, CP ####[facility] Ebpwphygniqt9074 [place], [place] [address])[phone] Director: Jose Miguel Davis MD MCH (RBC) [Entitic mass] 27.9 pg Normal 25.2-33.5 [facility] Comment on above: Performed By: #### C DP, MG, CP ####[facility] Vvswsqvjojbp7518 [place], [place] [phone] Director: Jose Miguel Davis MD MCHC (RBC) [Mass/Vol] 30.1 g/dL Normal 28.4-34.8 [facility] Comment on above: Performed By: #### C DP, MG, CP ####[place], [place] [address])[phone] Director: Jose Miguel Davis MD MCV (RBC) [Entitic vol] 92.8 fL Normal 82.6-102.9 [facility] Comment on above: Performed By: #### C DP, MG, CP ####[place], [place] [address])[phone] Director: Jose Miguel Davis MD Monocytes (Bld) [#/Vol] 0.46 10*3/uL Normal 0.10-1.20 [facility] Comment on above: Performed By: #### C DP, MG, CP ####[place], [place] [address])[phone] Director: Jose Miguel Davis MD Monocytes/100 WBC (Bld) 5 % Normal 3-12 [facility] Comment on above: Performed By: #### C DP, MG, CP ####[place], [place] [address])[phone] Director: Jose Miguel Davis MD Neutrophil (Seg) 78 % High 36-65 [facility] Comment on above: Performed By: #### C DP, MG, CP ####[place], [place] [address])[phone] Director: Jose Miguel Davis MD NRBC Automated 0.0 per 100 WBC Normal 0.0 [facility] Comment on above: Performed By: #### C DP, MG, CP ####[place], [place] [address])[phone] Director: Jose Miguel Davis MD Platelet mean volume (Bld) [Entitic vol] 9.8 fL Normal 8.1-13.5 [facility] Comment on above: Performed By: #### C DP, MG, CP ####[facility] Qxwgspvtobwt0865 [place], [place] [phone])[phone] Director: Jose Miguel Davis MD Platelets (Bld) [#/Vol] 233 10*3/uL Normal 138-453 [facility] Comment on above: Performed By: #### C DP, MG, CP ####[address] [address] Lab Director: Jose Miguel Davis MD RBC (Bld) [#/Vol] 4.58 10*6/uL Normal 3.95-5.11 [facility] Comment on above: Performed By: #### C DP, MG, CP ####[address] [address] Lab Director: Jose Miguel Davis MD RBC morphology finding Nom (Bld) ANISOCYTOSIS PRESENT Normal [facility] Comment on above: Performed By: #### C DP, MG, CP ####[facility] [address] [place] [address] [id number])[phone] Director: Jose Miguel Davis MD WBC (Bld) [#/Vol] 8.9 10*3/uL Normal 3.5-11.3 [facility] Comment on above: Performed By: #### C DP, MG, CP ####[address] [address])[phone] Director: Jose Miguel Davis MD Comp Metabolic Profon 2024 Albumin [Mass/Vol] 2.8 g/dL Low 3.5-5.2 [facility] Comment on above: Performed By: #### C DP, MG, CP ####[facility] [address] [place] [address] [id number])[phone] Director: Jose Miguel Davis MD Albumin/Glob Ratio 0.9 Low 1.0-2.5 [facility] Comment on above: Performed By: #### C DP, MG, CP ####[facility] X[address]qtjwnzu7756 [place], [place] [id number])[phone] Director: Jose Miguel Davis MD Alkaline Phos 75 U/L Normal 35-104 [facility] Comment on above: Performed By: #### C DP, MG, CP ####[facility] Mcjmd[address]iembs8117 [place], [place] [id number])[phone] Director: Jose Miguel Davis MD ALT [Catalytic activity/Vol] 15 U/L Normal 10-35 [facility] Comment on above: Performed By: #### C DP, MG, CP ####[facility] Dtidicixatxe3978 [place], [place] [id number])[phone] Director: Jose Miguel Davis MD Anion gap [Moles/Vol] 12 mmol/L Normal 9-16 [facility] Comment on above: Performed By: #### C DP, MG, CP ####[facility] [address] [place] [address] [id number])[phone] Director: Jose Miguel Davis MD AST [Catalytic activity/Vol] 18 U/L Normal 10-35 [facility] Comment on above: Performed By: #### C DP, MG, CP ####[facility] Gwh[address]jpovzmr6321 [place], [place] [phone])[phone] Director: Jose Miguel Davis MD Bilirubin [Mass/Vol] 0.8 mg/dL Normal 0.0-1.2 [facility] Comment on above: Performed By: #### C DP, MG, CP ####[facility] Dkqovnrrdhld8101 [place], [place] [phone])[phone] Director: Jose Miguel Davis MD Calcium [Mass/Vol] 8.4 mg/dL Low 8.6-10.4 [facility] Comment on above: Performed By: #### C DP, MG, CP ####[facility] Rwvxtegszdct6320 [place], [place] [id number])[phone] Director: Jose Miguel Davis MD Chloride [Moles/Vol] 101 mmol/L Normal 98-107 [facility] Comment on above: Performed By: #### C DP, MG, CP ####[facility] Owxvbgcuklvx1239 [place] [address] Lab Director: Jose Miguel Davis MD CO2 [Moles/Vol] 27 mmol/L Normal 20-31 [facility] Comment on above: Performed By: #### C DP, MG, CP ####[facility] Tikzogmpofnj2056 [place] [address] Lab Director: Jose Miguel Davis MD Creatinine [Mass/Vol] 0.7 mg/dL Normal 0.6-0.9 [facility] Comment on above: Performed By: #### C DP, MG, CP ####[address] [address] Lab Director: Jose Miguel Davis MD GFR/1.73 sq M.predicted among non-blacks MDRD (S/P/Bld) [Vol rate/Area] mL/min/{1.73_m2} Normal >60 [facility] Comment on above: Result Comment: These [...] Performed By: #### C DP, MG, CP ####[facility] Ffxxy[address]oxhor4261 [place] [address] Lab Director: Jose Miguel Davis MD Glucose [Mass/Vol] 276 mg/dL High 74-99 [facility] Comment on above: Performed By: #### C DP, MG, CP ####[facility] Zodadnlxrgtk6416 [place] [address] Lab Director: Jose Miguel Davis MD Potassium [Moles/Vol] 3.6 mmol/L Low 3.7-5.3 [facility] Comment on above: Performed By: #### C DP, MG, CP ####[facility] [address]fwozucvytx8762 [place] [address] Lab Director: Jose Miguel Davis MD Protein [Mass/Vol] 5.9 g/dL Low 6.6-8.7 [facility] Comment on above: Performed By: #### C DP, MG, CP ####[facility] Ixgsuaenjwms8035 [place] [address] Lab Director: Jose Miguel Davis MD Sodium [Moles/Vol] 140 mmol/L Normal 136-145 [facility] Comment on above: Performed By: #### C DP, MG, CP ####[facility] Fgkcawnczcfl4292 [place] [address] Lab Director: Jose Miguel Davis MD Urea nitrogen [Mass/Vol] 10 mg/dL Normal 8-23 [facility] Comment on above: Performed By: #### C DP, MG, CP ####[facility] [address]fpbmne4095 [place] [address] Lab Director: Jose Miguel Davis MD Comprehensive Metabolic Pane [facility] 03-09-2025 Albumin [Mass/Vol] 2.8 g/dL Low 3.5 - 5.2 g/dL [facility] Albumin/Globulin [Mass ratio] 0.9 {ratio} Low 1.0 - 2.5 [facility] ALP [Catalytic activity/Vol] 75 U/L 35 - 104 U/L [facility] ALT [Catalytic activity/Vol] 15 U/L 10 - 35 U/L [facility] Anion gap [Moles/Vol] 12 mmol/L 9 - 16 mmol/L [facility] AST [Catalytic activity/Vol] 18 U/L 10 - 35 U/L [facility] Bilirubin [Mass/Vol] 0.8 mg/dL 0.0 - 1 .2 mg/dL [facility] Calcium [Mass/Vol] 8.4 mg/dL Low 8.6 - 10. 4 mg/dL [facility] Chloride [Moles/Vol] 101 mmol/L 98 - 10 7 mmol/L [facility] CO2 [Moles/Vol] 27 mmol/L 20 - 31 mmol/L [facility] Creatinine [Mass/Vol] 0.7 mg/dL 0.6 - 0.9 mg/dL [facility] Est, Glom Filt Rate - PINF [facility] Glucose [Mass/Vol] 276 mg/dL High 74 - 99 mg/dL [facility] Interpretation and review of laboratory results Abnormal [facility] Potassium [Moles/Vol] 3.6 mmol/L Low 3.7 - 5.3 mmol/L [facility] Protein [Mass/Vol] 5.9 g/dL Low 6.6 - 8.7 g/dL [facility] Sodium [Moles/Vol] 140 mmol/L 136 - 145 mmol/L [facility] Urea nitrogen [Mass/Vol] 10 mg/dL 8 - 23 mg/dL [facility] Glucose,Whole Bloodon 2024 Glucose [Mass/Vol] 262 mg/dL High 65-105 [facility] Glucose [Mass/Vol] 219 mg/dL High 65-105 [facility] Glucose [Mass/Vol] 288 mg/dL High 65-105 [facility] Glucose [Mass/Vol] 259 mg/dL High 65-105 [facility] Magnesiumon 03-09-2025 Magnesium [Mass/Vol] 1.6 mg/dL 1.6 - 2 .4 mg/dL [facility] Magnesium [Mass/Vol] 1.6 mg/dL Normal 1.6-2.4 [facility] Comment on above: Performed By: #### C DP, MG, CP ####[facility] [address] [place] [address] [facility] Director: Jose Miguel Davis MD No Panel Informationon 03-09 [facility] POC Glucose Fingerstickon Glucose [Mass/Vol] 262 mg/dL High 65 - 105 mg/dL [facility] Interpretation and review of laboratory results Abnormal [facility] Glucose [Mass/Vol] 219 mg/dL High 65 - 105 mg/dL [facility] Interpretation and review of laboratory results Abnormal [facility] Glucose [Mass/Vol] 288 mg/dL High 65 - 105 mg/dL [facility] Interpretation and review of laboratory results Abnormal [facility] Glucose [Mass/Vol] 259 mg/dL High 65 - 105 mg/dL [facility] Interpretation and review of laboratory results Abnormal [facility] Basic Metab w/rfx MGon 03-08 Anion gap [Moles/Vol] 11 mmol/L Normal 9-16 [facility] Comment on above: Performed By: #### C DP, LIVP, MG, BMPX ####[facility] [address] [place] [address] Lab Director: Jose Miguel Davis MD Calcium [Mass/Vol] 8.6 mg/dL Normal 8.6-10.4 [facility] Comment on above: Performed By: #### C DP, LIVP, MG, BMPX ####[address] [place] [address] Lab Director: Jose Miguel Davis MD Chloride [Moles/Vol] 103 mmol/L Normal 98-107 [facility] Comment on above: Performed By: #### C DP, LIVP, MG, BMPX ####[facility] [address] [place] [address] Lab Director: Jose Miguel Davis MD CO2 [Moles/Vol] 28 mmol/L Normal 20-31 [facility] Comment on above: Performed By: #### C DP, LIVP, MG, BMPX ####[facility] [address] [place] [address] Lab Director: Jose Miguel Davis MD Creatinine [Mass/Vol] 0.6 mg/dL Normal 0.6-0.9 [facility] Comment on above: Performed By: #### C DP, LIVP, MG, BMPX ####[address] [address] Lab Director: Jose Miguel Davis MD GFR/1.73 sq M.predicted among non-blacks MDRD (S/P/Bld) [Vol rate/Area] mL/min/{1.73_m2} Normal >60 [facility] Comment on above: Result Comment: These [...] By: #### C DP, LIVP, MG, BMPX ####[facility] [address] [place] [address])[phone] Director: Jose Miguel Davis MD Glucose [Mass/Vol] 237 mg/dL High 74-99 [facility] Comment on above: Performed By: #### C DP, LIVP, MG, BMPX ####[facility] [address] [place] [address] Lab Director: Jose Miguel Davis MD Potassium [Moles/Vol] 3.5 mmol/L Low 3.7-5.3 [facility] Comment on above: Performed By: #### C DP, LIVP, MG, BMPX ####[facility] [address] [place] [address] Lab Director: Jose Miguel Davis MD Sodium [Moles/Vol] 142 mmol/L Normal 136-145 [facility] Comment on above: Performed By: #### C DP, LIVP, MG, BMPX ####[facility] [address] [place], [place] [address] Lab Director: Jose Miguel Davis MD Urea nitrogen [Mass/Vol] 13 mg/dL Normal 8-23 [facility] Comment on above: Performed By: #### C DP, LIVP, MG, BMPX ####[facility] [address] [place], [place] [phone] lab Director: Jose Miguel Davis MD Basic Metabolic Panel w/ Ref sam to MGon 03-08-2025 Anion gap [Moles/Vol] 11 mmol/L 9 - 16 mmol/L [facility] Calcium [Mass/Vol] 8.6 mg/dL 8.6 - 10. 4 mg/dL [facility] Chloride [Moles/Vol] 103 mmol/L 98 - 10 7 mmol/L [facility] CO2 [Moles/Vol] 28 mmol/L 20 - 31 mmol/L [facility] Creatinine [Mass/Vol] 0.6 mg/dL 0.6 - 0.9 mg/dL [facility] Est, Glom Filt Rate - PINF [facility] Glucose [Mass/Vol] 237 mg/dL High 74 - 99 mg/dL [facility] Interpretation and review of laboratory results Abnormal [facility] Potassium [Moles/Vol] 3.5 mmol/L Low 3.7 - 5.3 mmol/L [facility] Sodium [Moles/Vol] 142 mmol/L 136 - 145 mmol/L [facility] Urea nitrogen [Mass/Vol] 13 mg/dL 8 - 23 mg/dL [facility] CBC with Auto Differentialon 03-08-2025 Basophils (Bld) [#/Vol] 0.05 10*3/uL [facility] Basophils/100 WBC (Bld) 1 % 0 - 2 % [facility] Eosinophils (Bld) [#/Vol] 0.11 10*3/uL [facility] Eosinophils/100 WBC (Bld) 1 % 1 - 4 % [facility] Erythrocyte distribution width (RBC) [Ratio] 16 % High 11.8 - 14.4 % [facility] Hematocrit (Bld) [Volume fraction] 42.7 % 36.3 - 47.1 % [facility] Hemoglobin (Bld) [Mass/Vol] 12.8 g/dL 11.9 - 15.1 g/dL [facility] Immature granulocytes (Bld) [#/Vol] 0.34 10*3/uL High [facility] Immature granulocytes/100 WBC (Bld) 4 % High 0 [facility] Interpretation and review of laboratory results Abnormal [facility] Lymphocytes/100 WBC (Bld) 11 % Low 24 - 43 % [facility] Lymphocytes/100 WBC (Bld) 1 % Low [facility] MCH (RBC) [Entitic mass] 28.1 pg 25.2 - 33.5 pg [facility] MCHC (RBC) [Mass/Vol] 30 g/dL 28.4 - 34.8 g/dL [facility] MCV (RBC) [Entitic vol] 93.6 fL 82.6 - 102.9 fL [facility] Monocytes/100 WBC (Bld) 5 % 3 - 12 % [facility] Monocytes/100 WBC (Bld) 0.47 % [facility] Neutrophils/100 WBC (Bld) 78 % High 36 - 65 % [facility] Nucleated RBC/100 WBC (Bld) [Ratio] 0 % 0.0 per 100 WBC [facility] Platelet mean volume (Bld) [Entitic vol] 10.7 fL 8.1 - 13.5 fL [facility] Platelets (Bld) [#/Vol] 209 10*3/uL [facility] RBC (Bld) [#/Vol] 4.56 10*6/uL 3.95 - 5.1 1 m/uL [facility] RBC (Bld) [#/Vol] ANISOCYTOSIS PRESENT [facility] Segmented neutrophils/100 WBC (Bld) 7.25 % [facility] WBC other (Bld) [#/Vol] 9.2 [facility] CBC with Diffon 03-08-2025 Abs. Basophil 0.05 k/uL Normal 0.00-0.20 [facility] Comment on above: Performed By: #### C DP, LIVP, MG, BMPX ####[facility] [address] [place], [place] [address])[phone] Director: Jose Miguel Davis MD Abs.Imm.Granulocyte 0.34 k/uL High 0.00-0.30 [facility] Comment on above: Performed By: #### C DP, LIVP, MG, BMPX ####[facility] [address] [place], [place] [address])[phone] Director: Jose Miguel Davis MD Abs.Neutrophil (Seg) 7.25 k/uL Normal 1.50-8.10 [facility] Comment on above: Performed By: #### C DP, LIVP, MG, BMPX ####[facility] [address] [place], [place] [address])[phone] Director: Jose Miguel Davis MD Basophils/100 WBC (Bld) 1 % Normal 0-2 [facility] Comment on above: Performed By: #### C DP, LIVP, MG, BMPX ####[facility] [address] [place] [address])[phone] Director: Jose Miguel Davis MD Eosinophils (Bld) [#/Vol] 0.11 10*3/uL Normal 0.00-0.44 [facility] Comment on above: Performed By: #### C DP, LIVP, MG, BMPX ####[facility] [address] [place], [place] [address])[phone] Director: Jose Miguel Davis MD Eosinophils/100 WBC (Bld) 1 % Normal 1-4 [facility] Comment on above: Performed By: #### C DP, LIVP, MG, BMPX ####[facility] [address] [place] [address])[phone] Director: Jose Miguel Davis MD Erythrocyte distribution width (RBC) [Ratio] 16.0 % High 11.8-14.4 [facility] Comment on above: Performed By: #### C DP, LIVP, MG, BMPX ####[address] [address])[phone] Director: Jose Miguel Davis MD Hematocrit (Bld) [Volume fraction] 42.7 % Normal 36.3-47.1 [facility] Comment on above: Performed By: #### C DP, LIVP, MG, BMPX ####[place], [place] [address])[phone] Director: Jose Miguel Davis MD Hemoglobin (Bld) [Mass/Vol] 12.8 g/dL Normal 11.9-15.1 [facility] Comment on above: Performed By: #### C DP, LIVP, MG, BMPX ####[place], [place] [address])[phone] Director: Jose Miguel Davis MD Immature granulocytes/100 WBC (Bld) 4 % High 0 [facility] Comment on above: Performed By: #### C DP, LIVP, MG, BMPX ####[place], [place] [address])[phone] Director: Jose Miguel Davis MD Lymphocytes (Bld) [#/Vol] 1.00 10*3/uL Low 1.10-3.70 [facility] Comment on above: Performed By: #### C DP, LIVP, MG, BMPX ####[place], [place] [address])[phone] Director: Jose Miguel Davis MD Lymphocytes/100 WBC (Bld) 11 % Low 24-43 [facility] Comment on above: Performed By: #### C DP, LIVP, MG, BMPX ####[address] [place] [address] Lab Director: Jose Miguel Davis MD MCH (RBC) [Entitic mass] 28.1 pg Normal 25.2-33.5 [facility] Comment on above: Performed By: #### C DP, LIVP, MG, BMPX ####[facility] [address] [place] [address] [id number])[phone] Director: Jose Miguel Davis MD MCHC (RBC) [Mass/Vol] 30.0 g/dL Normal 28.4-34.8 [facility] Comment on above: Performed By: #### C DP, LIVP, MG, BMPX ####[facility] [address] [place] [address] [phone])[phone] Director: Jose Miguel Davis MD MCV (RBC) [Entitic vol] 93.6 fL Normal 82.6-102.9 [facility] Comment on above: Performed By: #### C DP, LIVP, MG, BMPX ####[facility] [address] [place], [place] [phone])[phone] Director: Jose Miguel Davis MD Monocytes (Bld) [#/Vol] 0.47 10*3/uL Normal 0.10-1.20 [facility] Comment on above: Performed By: #### C DP, LIVP, MG, BMPX ####[facility] [address] [place], [place] [phone])[phone] Director: Jose Miguel Davis MD Monocytes/100 WBC (Bld) 5 % Normal 3-12 [facility] Comment on above: Performed By: #### C DP, LIVP, MG, BMPX ####[facility] [address] [place] [address] [phone])[phone] Director: Jose Miguel Davis MD Neutrophil (Seg) 78 % High 36-65 [facility] Comment on above: Performed By: #### C DP, LIVP, MG, BMPX ####[address] [phone])[phone] Director: Jose Miguel Davis MD NRBC Automated 0.0 per 100 WBC Normal 0.0 [facility] Comment on above: Performed By: #### C DP, LIVP, MG, BMPX ####[address] [phone])[phone] Director: Jose Miguel Davis MD Platelet mean volume (Bld) [Entitic vol] 10.7 fL Normal 8.1-13.5 [facility] Comment on above: Performed By: #### C DP, LIVP, MG, BMPX ####[address] [phone])[phone] Director: Jose Miguel Davis MD Platelets (Bld) [#/Vol] 209 10*3/uL Normal 138-453 [facility] Comment on above: Performed By: #### C DP, LIVP, MG, BMPX ####[address] [address])[phone] Director: Jose Miguel Davis MD RBC (Bld) [#/Vol] 4.56 10*6/uL Normal 3.95-5.11 [facility] Comment on above: Performed By: #### C DP, LIVP, MG, BMPX ####[address] [address])[phone] Director: Jose Miguel Davis MD RBC morphology finding Nom (Bld) ANISOCYTOSIS PRESENT Normal [facility] Comment on above: Performed By: #### C DP, LIVP, MG, BMPX ####[address] [phone])[phone] Director: Jose Miguel Davis MD WBC (Bld) [#/Vol] 9.2 10*3/uL Normal 3.5-11.3 [facility] Comment on above: Performed By: #### C DP, LIVP, MG, BMPX ####[facility] HospitalMarkLines Co[facility] Ltd[facility] [address] [place] [address] lab Director: Jose Miguel Davis MD Cult, Bloodon 03-08-2025 Cult, Blood Specimen Description .BLOOD Special Requests NO INFO GIVEN Culture NO GROWTH 5 DAYS Report Status FINAL 03/08/2025 [facility] Comment on above: Performed By: #### B CUL2 ####[facility] [address] [place] [address] lab Director: Jsoe Miguel Davis MD Cult,Bloodon 03-08-2025 Cult,Blood Specimen Description .BLOOD Special Requests NO INFO GIVEN Culture NO GROWTH 5 DAYS Report Status FINAL 03/08/2025 [facility] Comment on above: Performed By: #### B C ####[facility] [address] [place], [place] [phone] lab Director: Jose Miguel Davis MD Culture, Blood 1on 5 Microorganism identified Cx Nom (Unsp spec) NO GROWTH 5 DAYS [facility] [employer] comment (Unsp spec) [Interp] NO INFO GIVEN [facility] [employer] Specimen Description .BLOOD [facility] [employer] [facility] [employer] Culture, Blood 2on 5 Microorganism identified Cx Nom (Unsp spec) NO GROWTH 5 DAYS [facility] [employer] comment (Unsp spec) [Interp] NO INFO GIVEN [facility] [employer] Specimen Description .BLOOD [facility] [employer] [facility] [employer] Glucose,Whole Bloodon 2024 Glucose [Mass/Vol] 288 mg/dL High 65-105 [facility] Glucose [Mass/Vol] 405 mg/dL Critically high 65-105 [facility] Comment on above: Result Comment: Clary hannah Noted Glucose [Mass/Vol] 374 mg/dL High 65-105 [facility] Glucose [Mass/Vol] 210 mg/dL High 65-105 [facility] Hepatic Function Panelon Albumin [Mass/Vol] 2.7 g/dL Low 3.5 - 5.2 g/dL [facility] Albumin/Globulin [Mass ratio] 0.8 {ratio} Low 1.0 - 2.5 [facility] ALP [Catalytic activity/Vol] 86 U/L 35 - 104 U/L [facility] ALT [Catalytic activity/Vol] 16 U/L 10 - 35 U/L [facility] AST [Catalytic activity/Vol] 18 U/L 10 - 35 U/L [facility] Bilirubin [Mass/Vol] 0.8 mg/dL 0.0 - 1 .2 mg/dL [facility] Bilirubin.direct [Mass/Vol] 0.3 mg/dL High 0.0 - 0.2 mg/dL [facility] Bilirubin.indirect [Mass/Vol] 0.5 mg/dL 0.0 - 1.0 mg/dL [facility] Globulin (S) [Mass/Vol] 3.3 g/dL [facility] Interpretation and review of laboratory results Abnormal [facility] Protein [Mass/Vol] 6 g/dL Low 6.6 - 8.7 g/dL [facility] Liver Profileon 03-08-2025 Albumin [Mass/Vol] 2.7 g/dL Low 3.5-5.2 [facility] Comment on above: Performed By: #### C DP, LIVP, MG, BMPX ####[employer] [address] [place] [address] Lab Director: Jose Miguel Davis MD Albumin/Glob Ratio 0.8 Low 1.0-2.5 [facility] Comment on above: Performed By: #### C DP, LIVP, MG, BMPX ####[employer] [address] [place] [address] lab Director: Jose Miguel Davis MD Alkaline Phos 86 U/L Normal 35-104 [facility] Comment on above: Performed By: #### C DP, LIVP, MG, BMPX ####[employer] [address] [place] [address] Lab Director: Jose Miguel Davis MD ALT [Catalytic activity/Vol] 16 U/L Normal -[address] [place] [address] Comment on above: Performed By: #### C DP, LIVP, MG, BMPX ####[facility] [address] [place], [place] [phone] Director: Jose Miguel Davis MD AST [Catalytic activity/Vol] 18 U/L Normal -[address] [place] [address] Comment on above: Performed By: #### C DP, LIVP, MG, BMPX ####[facility] [address] [place] [address] Lab Director: Jose Miguel Davis MD Bilirubin [Mass/Vol] 0.8 mg/dL Normal 0.0-1.2 [facility] Comment on above: Performed By: #### C DP, LIVP, MG, BMPX ####[facility] [address] [place], [place] [phone] Director: Jose Miguel Davis MD Bilirubin, Indirect 0.5 mg/dL Normal 0.0-1.0 [facility] Comment on above: Performed By: #### C DP, LIVP, MG, BMPX ####[facility] [address] [place] [address] Lab Director: Jose Miguel Davis MD Bilirubin.indirect [Mass/Vol] 0.3 mg/dL High 0.0-0.2 [facility] Comment on above: Performed By: #### C DP, LIVP, MG, BMPX ####[facility] [address] [place] [address] Lab Director: Jose Miguel Davis MD Globulin (S) [Mass/Vol] 3.3 g/dL Normal [facility] Comment on above: Performed By: #### C DP, LIVP, MG, BMPX ####[facility] [address] [place] [address] lab Director: Jose Miguel Davis MD Protein [Mass/Vol] 6.0 g/dL Low 6.6-8.7 [facility] Comment on above: Performed By: #### C DP, LIVP, MG, BMPX ####[facility] [address]pb[address] [place], [place] [phone] lab Director: Jose Miguel Davis MD Magnesiumon 03-08-2025 Magnesium [Mass/Vol] 1.6 mg/dL 1.6 - 2 .4 mg/dL [facility] Magnesium [Mass/Vol] 1.6 mg/dL Normal 1.6-2.4 [facility] Comment on above: Performed By: #### C DP, LIVP, MG, BMPX ####[facility] [address] [place] [address] lab Director: Jose Miguel Davis MD POC Glucose Fingerstickon Glucose [Mass/Vol] 288 mg/dL High 65 - 105 mg/dL [facility] Interpretation and review of laboratory results Abnormal [facility] Glucose [Mass/Vol] 405 mg/dL Critically high 65 - 1 05 mg/dL [facility] Interpretation and review of laboratory results Abnormal [facility] Glucose [Mass/Vol] 374 mg/dL High 65 - 105 mg/dL [facility] Interpretation and review of laboratory results Abnormal [facility] Glucose [Mass/Vol] 210 mg/dL High 65 - 105 mg/dL [facility] Interpretation and review of laboratory results Abnormal [facility] Basic Metab w/rfx MGon 03-07 Anion gap [Moles/Vol] 9 mmol/L Normal 9-16 [facility] Comment on above: Performed By: #### C DP, MG, BMPX ####[facility] [address] [place] [address] lab Director: oJse Miguel Davis MD Calcium [Mass/Vol] 8.5 mg/dL Low 8.6-10.4 [facility] Comment on above: Performed By: #### C DP, MG, BMPX ####[facility] [address] [place] [address])[phone] Director: Jose Miguel Davis MD Chloride [Moles/Vol] 107 mmol/L Normal 98-107 [facility] Comment on above: Performed By: #### C DP, MG, BMPX ####[facility] [address] [place] [address] [id number])[phone] Director: Jose Miguel Davis MD CO2 [Moles/Vol] 28 mmol/L Normal 20-31 [facility] Comment on above: Performed By: #### C DP, MG, BMPX ####[address] [address])[phone] Director: Jose Miguel Davis MD Creatinine [Mass/Vol] 0.6 mg/dL Normal 0.6-0.9 [facility] Comment on above: Performed By: #### C DP, MG, BMPX ####[address] [address])[phone] Director: Jose Miguel Davis MD GFR/1.73 sq M.predicted among non-blacks MDRD (S/P/Bld) [Vol rate/Area] mL/min/{1.73_m2} Normal >60 [facility] Comment on above: Result Comment: These [...] Performed By: #### C DP, MG, BMPX ####[address] [phone] Director: Jose Miguel Davis MD Glucose [Mass/Vol] 215 mg/dL High 74-99 [facility] Comment on above: Performed By: #### C DP, MG, BMPX ####[facility] [address] [place] [address] lab Director: Jose Miguel Davis MD Potassium [Moles/Vol] 3.5 mmol/L Low 3.7-5.3 [facility] Comment on above: Performed By: #### C DP, MG, BMPX ####[facility] [address] [place] [address] Lab Director: Jose Miguel Davis MD Sodium [Moles/Vol] 144 mmol/L Normal 136-145 [facility] Comment on above: Performed By: #### C DP, MG, BMPX ####[facility] [address] [place] [address] Lab Director: Jose Miguel Davis MD Urea nitrogen [Mass/Vol] 22 mg/dL Normal 8-23 [facility] Comment on above: Performed By: #### C DP, MG, BMPX ####[facility] [address] [place] [address] Lab Director: Jose Miguel Davis MD Basic Metabolic Panel w/ Ref sam to MGon 03-07-2025 Anion gap [Moles/Vol] 9 mmol/L 9 - 16 mmol/L [facility] Calcium [Mass/Vol] 8.5 mg/dL Low 8.6 - 10. 4 mg/dL [facility] Chloride [Moles/Vol] 107 mmol/L 98 - 10 7 mmol/L [facility] CO2 [Moles/Vol] 28 mmol/L 20 - 31 mmol/L [facility] Creatinine [Mass/Vol] 0.6 mg/dL 0.6 - 0.9 mg/dL [facility] Est, Glom Filt Rate - PINF [facility] Glucose [Mass/Vol] 215 mg/dL High 74 - 99 mg/dL [facility] Interpretation and review of laboratory results Abnormal [facility] Potassium [Moles/Vol] 3.5 mmol/L Low 3.7 - 5.3 mmol/L [facility] Sodium [Moles/Vol] 144 mmol/L 136 - 145 mmol/L [facility] Urea nitrogen [Mass/Vol] 22 mg/dL 8 - 23 mg/dL [facility] CBC with Auto Differentialon 03-07-2025 Basophils (Bld) [#/Vol] 0.04 10*3/uL [facility] Immature granulocytes (Bld) [#/Vol] 0.17 10*3/uL [facility] Interpretation and review of laboratory results Abnormal [facility] Lymphocytes/100 WBC (Bld) 0.82 % Low [facility] Monocytes/100 WBC (Bld) 0.55 % [facility] Neutrophils/100 WBC (Bld) 85 % High 36 - 65 % [facility] Nucleated RBC/100 WBC (Bld) [Ratio] 0 % 0.0 per 100 WBC [facility] RBC (Bld) [#/Vol] ANISOCYTOSIS PRESENT [facility] Segmented neutrophils/100 WBC (Bld) 9.6 % High [facility] WBC other (Bld) [#/Vol] 11.3 [facility] CBC with Diffon 03-07-2025 Basophils/100 WBC (Bld) 0 % Normal 0-2 [facility] Comment on above: Performed By: #### C DP, MG, BMPX ####[facility] [address] [place] [phone] Lab Director: Jose Miguel Davis MD Eosinophils (Bld) [#/Vol] 0.11 10*3/uL Normal 0.00-0.44 [facility] Comment on above: Performed By: #### C DP, MG, BMPX ####[facility] Xqpelpnpxeab7[address] [place] [phone] Lab Director: Jose Miguel Davis MD Eosinophils/100 WBC (Bld) 1 % Normal 1-4 [facility] Comment on above: Performed By: #### C DP, MG, BMPX ####[facility] [address] [place], [place] [address])[phone] Director: Jose Miguel Davis MD Erythrocyte distribution width (RBC) [Ratio] 16.2 % High 11.8-14.4 [facility] Comment on above: Performed By: #### C DP, MG, BMPX ####[facility] [address] [place], [place] [address])[phone] Director: Jose Miguel Davis MD Hematocrit (Bld) [Volume fraction] 38.5 % Normal 36.3-47.1 [facility] Comment on above: Performed By: #### C DP, MG, BMPX ####[facility] Vumcsresxltp[address] [place], [place] [address])[phone] Director: Jose Miguel Davis MD Hemoglobin (Bld) [Mass/Vol] 11.3 g/dL Low 11.9-15.1 [facility] Comment on above: Performed By: #### C DP, MG, BMPX ####[facility] [address] [place], [place] [address])[phone] Director: Jose Miguel Davis MD Immature granulocytes/100 WBC (Bld) 2 % High 0 [facility] Comment on above: Performed By: #### C DP, MG, BMPX ####[facility] [address]etsrsgy[address] [place], [place] [address])[phone] Director: Jose Miguel Davis MD Lymphocytes/100 WBC (Bld) 7 % Low 24-43 [facility] Comment on above: Performed By: #### C DP, MG, BMPX ####[facility] [address] [place], [place] [address])[phone] Director: Jose Miguel Davis MD MCH (RBC) [Entitic mass] 28.1 pg Normal 25.2-33.5 [facility] Comment on above: Performed By: #### C DP, MG, BMPX ####[facility] [address]75[address] [place] [address] Lab Director: Jose Miguel Davis MD MCHC (RBC) [Mass/Vol] 29.4 g/dL Normal 28.4-34.8 [facility] Comment on above: Performed By: #### C DP, MG, BMPX ####[facility] [address] [place], [place] [address])[phone] Director: Jose Miguel Davis MD MCV (RBC) [Entitic vol] 95.8 fL Normal 82.6-102.9 [facility] Comment on above: Performed By: #### C DP, MG, BMPX ####[facility] [address]bflxbot[address] [place], [place] [address])[phone] Director: Jose Miguel Davis MD Monocytes/100 WBC (Bld) 5 % Normal 3-12 [facility] Comment on above: Performed By: #### C DP, MG, BMPX ####[facility] [address] [place], [place] [address])[phone] Director: Jose Miguel Davis MD Platelet mean volume (Bld) [Entitic vol] 10.6 fL Normal 8.1-13.5 [facility] Comment on above: Performed By: #### C DP, MG, BMPX ####[facility] Ruqkfmtqbilv[address] [place], [place] [address])[phone] Director: Jose Miguel Davis MD Platelets (Bld) [#/Vol] 152 10*3/uL Normal 138-453 [facility] Comment on above: Performed By: #### C DP, MG, BMPX ####[facility] [address] [place], [place] [address])[phone] Director: Jose Miguel Daivs MD RBC (Bld) [#/Vol] 4.02 10*6/uL Normal 3.95-5.11 [facility] Comment on above: Performed By: #### C DP, MG, BMPX ####[facility] S[address]utt[address]zgawp0467 [place], [place] [id number])[phone] Director: Jose Miguel Davis MD Abs. Basophil 0.04 k/uL Normal 0.00-0.20 [facility] Comment on above: Performed By: #### C DP, MG, BMPX ####[facility] U[address]ysft[address]rpmj6[address] [place], [place] [phone] Director: Jose Miguel Davis MD Abs.Imm.Granulocyte 0.17 k/uL Normal 0.00-0.30 [facility] Comment on above: Performed By: #### C DP, MG, BMPX ####[facility] [address] [place], [place] [address])[phone] Director: Jose Miguel Davis MD Abs.Neutrophil (Seg) 9.60 k/uL High 1.50-8.10 [facility] Comment on above: Performed By: #### C DP, MG, BMPX ####[facility] [address] [place] [address] [id number])[phone] Director: Jose Miguel Davis MD Lymphocytes (Bld) [#/Vol] 0.82 10*3/uL Low 1.10-3.70 [facility] Comment on above: Performed By: #### C DP, MG, BMPX ####[facility] [address] [place] [address] [id number])[phone] Director: Jose Miguel Davis MD Monocytes (Bld) [#/Vol] 0.55 10*3/uL Normal 0.10-1.20 [facility] Comment on above: Performed By: #### C DP, MG, BMPX ####[facility] [address] [place], [place] [address])[phone] Director: Jose Miguel Davis MD Neutrophil (Seg) 85 % High 36-65 [facility] Comment on above: Performed By: #### C DP, MG, BMPX ####[facility] [address]ab[address] [place] [address] Lab Director: Jose Miguel Davis MD NRBC Automated 0.0 per 100 WBC Normal 0.0 [facility] Comment on above: Performed By: #### C DP, MG, BMPX ####[facility] Tdxdxqmbdepr7595 [place], [place] [id number])[phone] Director: Jose Miguel Davis MD RBC morphology finding Nom (Bld) ANISOCYTOSIS PRESENT Normal [facility] Comment on above: Performed By: #### C DP, MG, BMPX ####[facility] Rbczmfkvzidv5935 [place], [place] [phone])[phone] Director: Jose Miguel Davis MD WBC (Bld) [#/Vol] 11.3 10*3/uL Normal 3.5-11.3 [facility] Comment on above: Performed By: #### C DP, MG, BMPX ####[facility] [address]iqu[address] [place], [place] [phone] Director: Jose Miguel Davis MD Calcium, Ionicon 03-07-2025 Calcium [Moles/Vol] 1.21 mmol/L Normal 1.13-1.33 [facility] Comment on above: Performed By: #### I OCAL ####[facility] Bmlet[address]prjzfz38[address] [place], [place] [phone] Director: Jose Miguel Davis MD Calcium, Ionizedon Calcium.ionized (Bld) [Moles/Vol] 1.21 mmol/L 1.13 - 1.33 mmol/L [facility] Cult,Aerobe/Anaerobeon 03-07 Cult,Aerobe/Anaerobe Specimen Descriptio n [...] Tobramycin <=1 SUSCEPTIBLE Trimethoprim/Sulfa <=20 SUSCEPTIBLE Susceptible [facility] Comment on above: Performed By: #### A ANC ####[employer] Vlabdr[address]kycr60[address] [place], [place] [phone] lab Director: Jose Miguel Davis MD Culture, Anaerobic and Aerob icon 03-07-2025 Interpretation and review of laboratory results Abnormal [facility] Microorganism identified Cx Nom (Unsp spec) ESCHERICHIA COLI HEAVY GROWTH Identification by MALDI-TOF Abnormal [facility] Microorganism identified Cx Nom (Unsp spec) No anaerobic organisms isolated at 5 days. [facility] Microorganism or agent identified Nom (Unsp spec) RARE NEUTROPHILS [facility] [employer] Microorganism or agent identified Nom (Unsp spec) Negative [facility] Specimen Description .DRAINAGE PERC JT [facility] Glucose,Whole Bloodon 2024 Glucose [Mass/Vol] 249 mg/dL High 65-105 [facility] Glucose [Mass/Vol] 269 mg/dL High 65-105 [facility] Glucose [Mass/Vol] 239 mg/dL High 65-105 [facility] Glucose [Mass/Vol] 204 mg/dL High 65-105 [facility] Magnesiumon 03-07-2025 Magnesium [Mass/Vol] 1.8 mg/dL 1.6 - 2 .4 mg/dL [facility] Magnesium [Mass/Vol] 1.8 mg/dL Normal 1.6-2.4 [facility] Comment on above: Performed By: #### C DP, MG, BMPX ####[employer] [address] [place] [address] Lab Director: Jose Miguel Davis MD POC Glucose Fingerstickon Glucose [Mass/Vol] 249 mg/dL High 65 - 105 mg/dL [facility] Interpretation and review of laboratory results Abnormal [facility] Glucose [Mass/Vol] 269 mg/dL High 65 - 105 mg/dL [facility] Interpretation and review of laboratory results Abnormal [facility] Glucose [Mass/Vol] 239 mg/dL High 65 - 105 mg/dL [facility] Interpretation and review of laboratory results Abnormal [facility] Glucose [Mass/Vol] 204 mg/dL High 65 - 105 mg/dL [facility] Interpretation and review of laboratory results Abnormal [facility] Basic Metab w/rfx MGon 03-06 Anion gap [Moles/Vol] 10 mmol/L Normal 9-16 [facility] Comment on above: Performed By: #### B MPX, MG, CDP ####[facility] X[address]vwiynmc8557 [place] [address] Lab Director: Jose Miguel Davis MD Calcium [Mass/Vol] 8.9 mg/dL Normal 8.6-10.4 [facility] Comment on above: Performed By: #### B MPX, MG, CDP ####[facility] [address]axwqd7980 [place] [address] Lab Director: Jose Miguel Davis MD Chloride [Moles/Vol] 104 mmol/L Normal 98-107 [facility] Comment on above: Performed By: #### B MPX, MG, CDP ####[facility] [address]hellj99[address] [place] [address] Lab Director: Jose Miguel Davis MD CO2 [Moles/Vol] 29 mmol/L Normal 20-31 [facility] Comment on above: Performed By: #### B MPX, MG, CDP ####[facility] F[address]brpmbtbn2851 [place] [address] Lab Director: Jose Miguel Davis MD Creatinine [Mass/Vol] 1.0 mg/dL High 0.6-0.9 [facility] Comment on above: Performed By: #### B MPX, MG, CDP ####[facility] Nucjidvzuuyj6631 [facility] [place] [address] Lab Director: Jose Miguel Davis MD GFR/1.73 sq M.predicted among non-blacks MDRD (S/P/Bld) [Vol rate/Area] 59 mL/min/{1.73_m2} Low >60 [facility] Comment on above: Result Comment: These [...] Performed By: #### B MPX, MG, CDP ####[employer] [address] [place] [address] Lab Director: Jose Miguel Davis MD Glucose [Mass/Vol] 319 mg/dL High 74-99 [facility] Comment on above: Performed By: #### B MPX, MG, CDP ####[facility] [address]hve[address] [place] [address] Lab Director: Jose Miguel Davis MD Potassium [Moles/Vol] 3.3 mmol/L Low 3.7-5.3 [facility] Comment on above: Performed By: #### B MPX, MG, CDP ####[facility] [address] [place] [address] Lab Director: Jose Miguel Davis MD Sodium [Moles/Vol] 143 mmol/L Normal 136-145 [facility] Comment on above: Performed By: #### B MPX, MG, CDP ####[facility] [address]xavrooyi6996 [place] [address] Lab Director: Jose Miguel Davis MD Urea nitrogen [Mass/Vol] 40 mg/dL High 8-23 [facility] Comment on above: Performed By: #### B MPX, MG, CDP ####[facility] [address]cy[address]17 [place] [address] lab Director: Jose Miguel Davis MD Basic Metabolic Panel w/ Ref sam to MGon 03-06-2025 Anion gap [Moles/Vol] 10 mmol/L 9 - 16 mmol/L [facility] Calcium [Mass/Vol] 8.9 mg/dL 8.6 - 10. 4 mg/dL [facility] Chloride [Moles/Vol] 104 mmol/L 98 - 10 7 mmol/L [facility] CO2 [Moles/Vol] 29 mmol/L 20 - 31 mmol/L [facility] Creatinine [Mass/Vol] 1.0 mg/dL High 0.6 - 0.9 mg/dL [facility] Est, Glom Filt Rate 59 Low - PINF [facility] Glucose [Mass/Vol] 319 mg/dL High 74 - 99 mg/dL [facility] Interpretation and review of laboratory results Abnormal [facility] Potassium [Moles/Vol] 3.3 mmol/L Low 3.7 - 5.3 mmol/L [facility] Sodium [Moles/Vol] 143 mmol/L 136 - 145 mmol/L [facility] Urea nitrogen [Mass/Vol] 40 mg/dL High 8 - 23 mg/dL [facility] CBC with Auto Differentialon 03-06-2025 Basophils (Bld) [#/Vol] 0 10*3/uL [facility] Basophils/100 WBC (Bld) 0 % 0 - 2 % [facility] Eosinophils (Bld) [#/Vol] 0.15 10*3/uL [facility] Eosinophils/100 WBC (Bld) 1 % 1 - 4 % [facility] Erythrocyte distribution width (RBC) [Ratio] 16.4 % High 11.8 - 14.4 % [facility] Hematocrit (Bld) [Volume fraction] 39.3 % 36.3 - 47.1 % [facility] Hemoglobin (Bld) [Mass/Vol] 11.3 g/dL Low 11.9 - 15.1 g/dL [facility] Immature granulocytes (Bld) [#/Vol] 0.15 10*3/uL [facility] Immature granulocytes/100 WBC (Bld) 1 % High 0 [facility] Interpretation and review of laboratory results Abnormal [facility] Lymphocytes/100 WBC (Bld) 5 % Low 24 - 43 % [facility] Lymphocytes/100 WBC (Bld) 0.74 % Low [facility] MCH (RBC) [Entitic mass] 27.6 pg 25.2 - 33.5 pg [facility] MCHC (RBC) [Mass/Vol] 28.8 g/dL 28.4 - 34.8 g/dL [facility] MCV (RBC) [Entitic vol] 96.1 fL 82.6 - 102.9 fL [facility] Monocytes/100 WBC (Bld) 4 % 3 - 12 % [facility] Monocytes/100 WBC (Bld) 0.59 % [facility] Morphology Kevin (Bld) [Interp] ANISOCYTOSIS PRESENT [facility] Neutrophils/100 WBC (Bld) 89 % High 36 - 65 % [facility] Nucleated RBC/100 WBC (Bld) [Ratio] 0 % 0.0 per 100 WBC [facility] Platelet mean volume (Bld) [Entitic vol] 10.7 fL 8.1 - 13.5 fL [facility] Platelets (Bld) [#/Vol] 152 10*3/uL [facility] RBC (Bld) [#/Vol] 4.09 10*6/uL 3.95 - 5.1 1 m/uL [facility] Segmented neutrophils/100 WBC (Bld) 13.07 % High [facility] WBC other (Bld) [#/Vol] 14.7 High [facility] CBC with Diffon 03-06-2025 Abs. Basophil 0.00 k/uL Normal 0.00-0.20 [facility] Comment on above: Performed By: #### B MPX, MG, CDP ####[facility] [address] [place] [address] Lab Director: Jose Miguel Davis MD Abs.Imm.Granulocyte 0.15 k/uL Normal 0.00-0.30 [facility] Comment on above: Performed By: #### B MPX, MG, CDP ####[facility] Ict[address]kyvecray1797 [place], [place] [phone] Director: Jose Miguel Davis MD Abs.Neutrophil (Seg) 13.07 k/uL High 1.50-8.10 [facility] Comment on above: Performed By: #### B MPX, MG, CDP ####[facility] [address]ravcol3737 [place] [address] Lab Director: Jose Miguel Davis MD Basophils/100 WBC (Bld) 0 % Normal 0-2 [facility] Comment on above: Performed By: #### B MPX, MG, CDP ####[facility] Qgqvagswbdnc2442 [place], [place] [address])[phone] Director: Jose Miguel Davis MD Eosinophils (Bld) [#/Vol] 0.15 10*3/uL Normal 0.00-0.44 [facility] Comment on above: Performed By: #### B MPX, MG, CDP ####[facility] Yyf[address]oguqrhy6981 [place], [place] [address])[phone] Director: Jose Miguel Davis MD Eosinophils/100 WBC (Bld) 1 % Normal 1-4 [facility] Comment on above: Performed By: #### B MPX, MG, CDP ####[facility] Yqcmbdrvldyd8507 [place], [place] [address])[phone] Director: Jose Miguel Davis MD Immature granulocytes/100 WBC (Bld) 1 % High 0 [facility] Comment on above: Performed By: #### B MPX, MG, CDP ####[facility] [address]kwufjpuwoe7[address] [place], [place] [address])[phone] Director: Jose Miguel Davis MD Lymphocytes (Bld) [#/Vol] 0.74 10*3/uL Low 1.10-3.70 [facility] Comment on above: Performed By: #### B MPX, MG, CDP ####[facility] [address] [place] [address] [phone] Director: Jose Miguel Davis MD Lymphocytes/100 WBC (Bld) 5 % Low 24-43 [facility] Comment on above: Performed By: #### B MPX, MG, CDP ####[facility] Zwvfmhcpzrqm5669 [place], [place] [phone] Director: Jose Miguel Davis MD Monocytes (Bld) [#/Vol] 0.59 10*3/uL Normal 0.10-1.20 [facility] Comment on above: Performed By: #### B MPX, MG, CDP ####[address] [address])[phone] Director: Jose Miguel Davis MD Monocytes/100 WBC (Bld) 4 % Normal 3-12 [facility] Comment on above: Performed By: #### B MPX, MG, CDP ####[facility] [address] [place] [address])[phone] Director: Jose Miguel Davis MD Morphology Kevin (Bld) [Interp] ANISOCYTOSIS PRESENT Normal [facility] Comment on above: Performed By: #### B MPX, MG, CDP ####[facility] [address]arcv[address] [place] [address])[phone] Director: Jose Miguel Davis MD Neutrophil (Seg) 89 % High 36-65 [facility] Comment on above: Performed By: #### B MPX, MG, CDP ####[facility] Zaoswudontci9616 [place], [place] [phone] Director: Joes Miguel Davis MD Erythrocyte distribution width (RBC) [Ratio] 16.4 % High 11.8-14.4 [facility] Comment on above: Performed By: #### B MPX, MG, CDP ####[facility] [address]wftp2700 [place] [address] Lab Director: Jose Miguel Davis MD Hematocrit (Bld) [Volume fraction] 39.3 % Normal 36.3-47.1 [facility] Comment on above: Performed By: #### B MPX, MG, CDP ####[facility] [address]upzghxoqvdm7042 [place], [place] [address])[phone] Director: Jose Miguel Davis MD Hemoglobin (Bld) [Mass/Vol] 11.3 g/dL Low 11.9-15.1 [facility] Comment on above: Performed By: #### B MPX, MG, CDP ####[facility] Feogtsvvmwtd4042 [place], [place] [address])[phone] Director: Jose Miguel Davis MD MCH (RBC) [Entitic mass] 27.6 pg Normal 25.2-33.5 [facility] Comment on above: Performed By: #### B MPX, MG, CDP ####[facility] [address] [place] [address])[phone] Director: Jose Miguel Davis MD MCHC (RBC) [Mass/Vol] 28.8 g/dL Normal 28.4-34.8 [facility] Comment on above: Performed By: #### B MPX, MG, CDP ####[facility] [address]jjlkcbrkmss6086 [place], [place] [address])[phone] Director: Jose Miguel Davis MD MCV (RBC) [Entitic vol] 96.1 fL Normal 82.6-102.9 [facility] Comment on above: Performed By: #### B MPX, MG, CDP ####[facility] [address]byveozyplbw3177 [place], [place] [address])[phone] Director: Jose Miguel Davis MD NRBC Automated 0.0 per 100 WBC Normal 0.0 [facility] Comment on above: Performed By: #### B MPX, MG, CDP ####[facility] [address]uvub6[address] [place] [address] Lab Director: Jose Miguel Davis MD Platelet mean volume (Bld) [Entitic vol] 10.7 fL Normal 8.1-13.5 [facility] Comment on above: Performed By: #### B MPX, MG, CDP ####[facility] Tom[address]wrq[address]ptui6311 [place], [place] [phone] Director: Jose Miguel Davis MD Platelets (Bld) [#/Vol] 152 10*3/uL Normal 138-453 [facility] Comment on above: Performed By: #### B MPX, MG, CDP ####[facility] Kjbodqkbbwtx0276 [place], [place] [phone] Director: Jose Miguel Davis MD RBC (Bld) [#/Vol] 4.09 10*6/uL Normal 3.95-5.11 [facility] Comment on above: Performed By: #### B MPX, MG, CDP ####[facility] [address]irya2378 [place], [place] [address])[phone] Director: Jose Miguel Davis MD WBC (Bld) [#/Vol] 14.7 10*3/uL High 3.5-11.3 [facility] Comment on above: Performed By: #### B MPX, MG, CDP ####[facility] [address]rngwdipuq0533 [place], [place] [id number])[phone] Director: Jose Miguel Davis MD Glucose,Whole Bloodon 2024 Glucose [Mass/Vol] 225 mg/dL High 65-105 [facility] Glucose [Mass/Vol] 279 mg/dL High 65-105 [facility] Glucose [Mass/Vol] 270 mg/dL High 65-105 [facility] Glucose [Mass/Vol] 263 mg/dL High 65-105 [facility] Magnesiumon 03-06-2025 Magnesium [Mass/Vol] 2.1 mg/dL 1.6 - 2 .4 mg/dL [facility] Magnesium [Mass/Vol] 2.1 mg/dL Normal 1.6-2.4 [facility] Comment on above: Performed By: #### B MPX, MG, CDP ####[facility] [address] [place] [phone] [facility] Director: Jose Miguel Davis MD POC Glucose Fingerstickon Glucose [Mass/Vol] 225 mg/dL High 65 - 105 mg/dL [facility] Interpretation and review of laboratory results Abnormal [facility] Glucose [Mass/Vol] 279 mg/dL High 65 - 105 mg/dL [facility] Interpretation and review of laboratory results Abnormal [facility] Glucose [Mass/Vol] 270 mg/dL High 65 - 105 mg/dL [facility] Interpretation and review of laboratory results Abnormal [facility] Glucose [Mass/Vol] 263 mg/dL High 65 - 105 mg/dL [facility] Interpretation and review of laboratory results Abnormal [facility] Arterial Bld Gas,POCon 03-05 [place] Test Positive Normal [facility] FIO2 10.0 Normal [facility] HCO3 (Bld) [Moles/Vol] 28.2 mmol/L High 21.0-28.0 [facility] Oxygen saturation in Blood 95.2 % Normal 94.0-98.0 [facility] pCO2, Arterial 50.8 mm Hg High 35.0-48.0 [facility] pH, Arterial 7.353 Normal 7.350-7.450 [facility] pO2, Arterial 81.6 mm Hg Low 83.0-108.0 [facility] Positive Base Excess (calc) 1.8 mmol/L Normal 0.0-3.0 [facility] Site Drawn Right Radial Artery Normal [facility] Arterial Blood Gas, POCon [place] Test Positive [facility] FIO2 10 [facility] HCO3 (Bld) [Moles/Vol] 28.2 mmol/L High 21.0 - 28.0 mmol/L [facility] Oxygen saturation in Blood 95.2 % 94.0 - 98.0 % [facility] POC pCO2 50.8 High [facility] POC pH 7.353 7.350 - 7.450 [facility] POC PO2 81.6 Low [facility] Positive Base Excess, Art 1.8 mmol/L 0.0 - 3.0 mmol/L [facility] Sample Site Right Radial Artery [facility] CBC with Auto Differentialon 03-05-2025 Basophils (Bld) [#/Vol] 0 10*3/uL [facility] Basophils/100 WBC (Bld) 0 % 0 - 2 % [facility] Eosinophils (Bld) [#/Vol] 0 10*3/uL [facility] Eosinophils/100 WBC (Bld) 0 % Low 1 - 4 % [facility] Erythrocyte distribution width (RBC) [Ratio] 16.3 % High 11.8 - 14.4 % [facility] Hematocrit (Bld) [Volume fraction] 40.8 % 36.3 - 47.1 % [facility] Hemoglobin (Bld) [Mass/Vol] 11.9 g/dL 11.9 - 15.1 g/dL [facility] Immature granulocytes (Bld) [#/Vol] 0 10*3/uL [facility] Immature granulocytes/100 WBC (Bld) 0 % 0 [facility] Interpretation and review of laboratory results Abnormal [facility] Lymphocytes/100 WBC (Bld) 4 % Low 24 - 44 % [facility] Lymphocytes/100 WBC (Bld) 0.97 % Low [facility] MCH (RBC) [Entitic mass] 27.8 pg 25.2 - 33.5 pg [facility] MCHC (RBC) [Mass/Vol] 29.2 g/dL 28.4 - 34.8 g/dL [facility] MCV (RBC) [Entitic vol] 95.3 fL 82.6 - 102.9 fL [facility] Monocytes/100 WBC (Bld) 5 % 1 - 7 % [facility] Monocytes/100 WBC (Bld) 1.21 % High [facility] Morphology Kevin (Bld) [Interp] ANISOCYTOSIS PRESENT [facility] Neutrophils/100 WBC (Bld) 91 % High 36 - 66 % [facility] Nucleated RBC/100 WBC (Bld) [Ratio] 0.1 % High 0.0 per 100 WBC [facility] Platelet mean volume (Bld) [Entitic vol] 11 fL 8.1 - 13.5 fL [facility] Platelets (Bld) [#/Vol] 155 10*3/uL [facility] RBC (Bld) [#/Vol] 4.28 10*6/uL 3.95 - 5.1 1 m/uL [facility] Segmented neutrophils/100 WBC (Bld) 22.02 % High [facility] WBC other (Bld) [#/Vol] 24.2 [facility] CBC with Diffon 03-05-2025 Abs. Basophil 0.00 k/uL Normal 0.0-0.2 [facility] Comment on above: Performed By: #### C DP, CMPX, LACTIC ####[facility] Hospital[facility] [employer] [address]qgebzydl0259 [place] [address] Lab Director: Jose Miguel Davis MD Abs.Imm.Granulocyte 0.00 k/uL Normal 0.00-0.30 [facility] Comment on above: Performed By: #### C DP, CMPX, LACTIC ####[employer] [address]obtds[address]7 [place] [address] Lab Director: Jose Miguel Davis MD Abs.Neutrophil (Seg) 22.02 k/uL High 1.8-7.7 [facility] Comment on above: Performed By: #### C DP, CMPX, LACTIC ####[employer] R[address]6128 [place] [address] Lab Director: Jose Miguel Davis MD Basophils/100 WBC (Bld) 0 % Normal 0-2 [facility] Comment on above: Performed By: #### C DP, CMPX, LACTIC ####[facility] [address]auum6543 [place], [place] [phone])[phone] Director: Jose Miguel Davis MD Eosinophils (Bld) [#/Vol] 0.00 10*3/uL Normal 0.0-0.4 [facility] Comment on above: Performed By: #### C DP, CMPX, LACTIC ####[facility] Ojzruytfikkm8657 [place], [place] [address])[phone] Director: Jose Miguel Davis MD Eosinophils/100 WBC (Bld) 0 % Low 1-4 [facility] Comment on above: Performed By: #### C DP, CMPX, LACTIC ####[facility] [address] [place] [address])[phone] Director: Jose Miguel Davis MD Immature granulocytes/100 WBC (Bld) 0 % Normal 0 [facility] Comment on above: Performed By: #### C DP, CMPX, LACTIC ####[facility] [address] [place] [address] [id number])[phone] Director: Jose Miguel Davis MD Lymphocytes (Bld) [#/Vol] 0.97 10*3/uL Low 1.0-4.8 [facility] Comment on above: Performed By: #### C DP, CMPX, LACTIC ####[facility] [address]opstlpkc2051 [place], [place] [id number])[phone] Director: Jose Miguel Davis MD Lymphocytes/100 WBC (Bld) 4 % Low 24-44 [facility] Comment on above: Performed By: #### C DP, CMPX, LACTIC ####[facility] Ztnsetmfqogk7716 [place], [place] [phone] Director: Jose Miguel Davis MD Monocytes (Bld) [#/Vol] 1.21 10*3/uL High 0.1-0.8 [facility] Comment on above: Performed By: #### C DP, CMPX, LACTIC ####[facility] Iyscsykvigbj0930 [place], [place] [id number])[phone] Director: Jose Miguel Davis MD Monocytes/100 WBC (Bld) 5 % Normal 1-7 [facility] Comment on above: Performed By: #### C DP, CMPX, LACTIC ####[facility] Tgqsvxihrxmq0463 [place], [place] [phone] Director: Jose Miguel Davis MD Morphology Kevin (Bld) [Interp] ANISOCYTOSIS PRESENT Normal [facility] Comment on above: Performed By: #### C DP, CMPX, LACTIC ####[address] [id number])[phone] Director: Jose Miguel Davis MD Neutrophil (Seg) 91 % High 36-66 [facility] Comment on above: Performed By: #### C DP, CMPX, LACTIC ####[facility] Luppfouiyumw9068 [place], [place] [phone] Director: Jose Miguel Davis MD Erythrocyte distribution width (RBC) [Ratio] 16.3 % High 11.8-14.4 [facility] Comment on above: Performed By: #### C DP, CMPX, LACTIC ####[facility] Pmbirabqhcqo6937 [place], [place] [phone])[phone] Director: Jose Miguel Davis MD Hematocrit (Bld) [Volume fraction] 40.8 % Normal 36.3-47.1 [facility] Comment on above: Performed By: #### C DP, CMPX, LACTIC ####[facility] Qefnelrrpwst8529 [place], [place] [phone])[phone] Director: Jose Miguel Davis MD Hemoglobin (Bld) [Mass/Vol] 11.9 g/dL Normal 11.9-15.1 [facility] Comment on above: Performed By: #### C DP, CMPX, LACTIC ####[facility] [address] [place], [place] [address])[phone] Director: Jose Miguel Davis MD MCH (RBC) [Entitic mass] 27.8 pg Normal 25.2-33.5 [facility] Comment on above: Performed By: #### C DP, CMPX, LACTIC ####[place], [place] [address])[phone] Director: Jose Miguel Davis MD MCHC (RBC) [Mass/Vol] 29.2 g/dL Normal 28.4-34.8 [facility] Comment on above: Performed By: #### C DP, CMPX, LACTIC ####[place], [place] [address])[phone] Director: Jose Miguel Davis MD MCV (RBC) [Entitic vol] 95.3 fL Normal 82.6-102.9 [facility] Comment on above: Performed By: #### C DP, CMPX, LACTIC ####[place], [place] [address])[phone] Director: Jose Miguel Davis MD NRBC Automated 0.1 per 100 WBC High 0.0 [facility] Comment on above: Performed By: #### C DP, CMPX, LACTIC ####[place], [place] [address])[phone] Director: Jose Miguel Davis MD Platelet mean volume (Bld) [Entitic vol] 11.0 fL Normal 8.1-13.5 [facility] Comment on above: Performed By: #### C DP, CMPX, LACTIC ####[place], [place] [address])[phone] Director: Jose Miguel Davis MD Platelets (Bld) [#/Vol] 155 10*3/uL Normal 138-453 [facility] Comment on above: Performed By: #### C DP, CMPX, LACTIC ####[facility] Dqzopzeztiur7674 [place], [place] [phone])[phone] Director: Jose Miguel Davis MD RBC (Bld) [#/Vol] 4.28 10*6/uL Normal 3.95-5.11 [facility] Comment on above: Performed By: #### C DP, CMPX, LACTIC ####[facility] Kkfzaxopdwji9552 [place], [place] [id number])[phone] Director: Jose Miguel Davis MD WBC (Bld) [#/Vol] 24.2 10*3/uL High 3.5-11.3 [facility] Comment on above: Performed By: #### C DP, CMPX, LACTIC ####[facility] Dcezciksfsty7914 [place], [place] [address])[phone] Director: Jose Miguel Davis MD Comp Metabolic Pr/rfx MGon 0 - Albumin [Mass/Vol] 2.3 g/dL Low 3.5-5.2 [facility] Comment on above: Performed By: #### C DP, CMPX, LACTIC ####[facility] Sbkyzskkxjwt5997 [place], [place] [phone])[phone] Director: Jose Miguel Davis MD Albumin/Glob Ratio 0.6 Low 1.0-2.5 [facility] Comment on above: Performed By: #### C DP, CMPX, LACTIC ####[facility] L[address]rgkyqaskoc4523 [place], [place] [id number])[phone] Director: Jose Miguel Davis MD Alkaline Phos 151 U/L High 35-104 [facility] Comment on above: Performed By: #### C DP, CMPX, LACTIC ####[facility] Wtlzqiyzwrfo6529 [place], [place] [id number])[phone] Director: Jose Miguel Davis MD ALT [Catalytic activity/Vol] 33 U/L Normal 10-35 [facility] Comment on above: Performed By: #### C DP, CMPX, LACTIC ####[facility] Nmodjvsgcnax9177 [place], [place] [id number])[phone] Director: Jose Miguel Davis MD Anion gap [Moles/Vol] 16 mmol/L Normal 9-16 [facility] Comment on above: Performed By: #### C DP, CMPX, LACTIC ####[facility] Vywejwfwceks56[address] [place], [place] [id number])[phone] Director: Jose Miguel Davis MD AST [Catalytic activity/Vol] 45 U/L High 10-35 [facility] Comment on above: Performed By: #### C DP, CMPX, LACTIC ####[facility] Blrscgjrpslf6934 [place], [place] [id number])[phone] Director: Jose Miguel Davis MD Bilirubin [Mass/Vol] 1.8 mg/dL High 0.0-1.2 [facility] Comment on above: Performed By: #### C DP, CMPX, LACTIC ####[facility] Jmywvdvjoerg8807 [place], [place] [address])[phone] Director: Jose Miguel Davis MD Calcium [Mass/Vol] 8.5 mg/dL Low 8.6-10.4 [facility] Comment on above: Performed By: #### C DP, CMPX, LACTIC ####[facility] Qlvfuqnddbya6355 [place], [place] [address])[phone] Director: Jose Miguel Davis MD Chloride [Moles/Vol] 108 mmol/L High 98-107 [facility] Comment on above: Performed By: #### C DP, CMPX, LACTIC ####[facility] Y[address]iebpzbhtv6327 [place], [place] [phone] Director: Jose Miguel Davis MD CO2 [Moles/Vol] 22 mmol/L Normal 20-31 [facility] Comment on above: Performed By: #### C DP, CMPX, LACTIC ####[facility] Pxcxotofxmio8891 [place] [address] Lab Director: Jose Miguel Davis MD Creatinine [Mass/Vol] 1.6 mg/dL High 0.6-0.9 [facility] Comment on above: Performed By: #### C DP, CMPX, LACTIC ####[address] [address] Lab Director: Jose Miguel Davis MD GFR/1.73 sq M.predicted among non-blacks MDRD (S/P/Bld) [Vol rate/Area] 33 mL/min/{1.73_m2} Low >60 [facility] Comment on above: Result Comment: These [...] Performed By: #### C DP, CMPX, LACTIC ####[facility] [address] [place] [address] Lab Director: Jose Miguel Davis MD Glucose [Mass/Vol] 251 mg/dL High 74-99 [facility] Comment on above: Performed By: #### C DP, CMPX, LACTIC ####[facility] [address] [place] [address] Lab Director: Jose Miguel Davis MD Potassium [Moles/Vol] 4.0 mmol/L Normal 3.7-5.3 [facility] Comment on above: Performed By: #### C DP, CMPX, LACTIC ####[facility] Hjswxmxbvank1152 [place], [place] [id number])[phone] Director: Jose Miguel Davis MD Protein [Mass/Vol] 6.0 g/dL Low 6.6-8.7 [facility] Comment on above: Performed By: #### C DP, CMPX, LACTIC ####[facility] Tbwtgpdzoeti0930 [place], [place] 5923608 Lab Director: Jose Miguel Davis MD Sodium [Moles/Vol] 146 mmol/L High 136-145 [facility] Comment on above: Performed By: #### C DP, CMPX, LACTIC ####[facility] Xrisqzkrdxlw0210 [place], [place] 3350308 lab Director: Jose Miguel Davis MD Urea nitrogen [Mass/Vol] 56 mg/dL High 8-23 [facility] Comment on above: Performed By: #### C DP, CMPX, LACTIC ####[facility] Pdcvzulxsfhw5460 [place], [place] [phone] lab Director: JoseM iguel Davis MD Comprehensive Metabolic Pane l w/ Reflex to MGon 03-05-2025 Albumin [Mass/Vol] 2.3 g/dL Low 3.5 - 5.2 g/dL [facility] Albumin/Globulin [Mass ratio] 0.6 {ratio} Low 1.0 - 2.5 [facility] ALP [Catalytic activity/Vol] 151 U/L High 35 - 104 U/L [facility] ALT [Catalytic activity/Vol] 33 U/L 10 - 35 U/L [facility] Anion gap [Moles/Vol] 16 mmol/L 9 - 16 mmol/L [facility] AST [Catalytic activity/Vol] 45 U/L High 10 - 35 U/L [facility] Bilirubin [Mass/Vol] 1.8 mg/dL High 0.0 - 1 .2 mg/dL [facility] Calcium [Mass/Vol] 8.5 mg/dL Low 8.6 - 10. 4 mg/dL [facility] Chloride [Moles/Vol] 108 mmol/L High 98 - 10 7 mmol/L [facility] CO2 [Moles/Vol] 22 mmol/L 20 - 31 mmol/L [facility] Creatinine [Mass/Vol] 1.6 mg/dL High 0.6 - 0.9 mg/dL [facility] Est, Glom Filt Rate 33 Low - PINF [facility] [employer] Glucose [Mass/Vol] 251 mg/dL High 74 - 99 mg/dL [facility] [employer] Interpretation and review of laboratory results Abnormal [facility] [employer] Potassium [Moles/Vol] 4 mmol/L 3.7 - 5.3 mmol/L [facility] [employer] Protein [Mass/Vol] 6 g/dL Low 6.6 - 8.7 g/dL [facility] [employer] Sodium [Moles/Vol] 146 mmol/L High 136 - 145 mmol/L [facility] [employer] Urea nitrogen [Mass/Vol] 56 mg/dL High 8 - 23 mg/dL [facility] [employer] [facility] [employer] EKG 12 LeadOrdered By: Rickey Preciado on 03-05-2025 Atrial Rate 77 BPM [facility] [employer] Work Phone: P-R Interval 160 ms [facility] [employer] Work Phone: Q-T Interval 392 ms [facility] [employer] Work Phone: QRS Duration 94 ms [facility] [employer] Work Phone: QTc Calculation (Bazett) 443 ms [facility] [employer] Work Phone: R Erie -30 degrees [facility] [employer] Work Phone: T Erie 53 degrees [employer] Work Phone: [phone] Ventricular Rate 77 BPM [employer] [facility] [employer] Work Phone: [employer] Work Phone: EKG 12 Leadon 03-05-2025 MHPN STV MUSE [facility] [employer] [place] UGIon 03-05-2025 [place] UGI EXAMINATION: SINGLE [...] head tilted upright approximately 30-40 degrees. 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 NG tube traverses the GE junction with distal tip overlying the left upper quadrant likely within the body of the stomach. Drainage catheter or pigtail catheter tube projects over the midline abdomen. nuclear monitoring technician leads overlie the abdomen. Right IJ approach [...] Dalton Simmons MD 03/05/25 Final result [facility] MHPN RIS CONSOLIDATED PN RIS CONSOLIDATED [facility] Radiology Study observation (narrative) [facility] [place] UGIOrdered By: Dalton Simmons on 03-05-2025 [facility] Work Phone: Glucose (POC)on 03-05-2025 Glucose [Mass/Vol] 249 mg/dL High 74-100 [facility] Glucose,Whole Bloodon 2024 Glucose [Mass/Vol] 236 mg/dL High 65-105 [facility] Glucose [Mass/Vol] 259 mg/dL High 65-105 [facility] Glucose [Mass/Vol] 234 mg/dL High 65-105 [facility] Glucose [Mass/Vol] 228 mg/dL High 65-105 [facility] Lactic Acidon 03-05-2025 Lactic Acid, Whole Blood 2.1 mmol/L 0.7 - 2.1 mmol/L [facility] Lactic Acid,Whole Bl 2.1 mmol/L Normal 0.7-2.1 [facility] Comment on above: Performed By: #### C DP, CMPX, LACTIC ####[facility] Cwxqqcscmjar2654 [place] [address] [facility] Director: Jose Miguel Davis MD Lactic Acid (POC)on 03-05-20 25 Lactate [Moles/Vol] 1.4 mmol/L High 0.56-1.39 [facility] Lactic Acid, POCon 5 POC Lactic Acid 1.4 mmol/L High 0.56 - 1.39 mmol/L [facility] No Panel Informationon 03-05 Interpretation and review of laboratory results Abnormal [facility] POC Glucose Fingerstickon Glucose [Mass/Vol] 236 mg/dL High 65 - 105 mg/dL [facility] Interpretation and review of laboratory results Abnormal [facility] Glucose [Mass/Vol] 259 mg/dL High 65 - 105 mg/dL [facility] Interpretation and review of laboratory results Abnormal [facility] Glucose [Mass/Vol] 234 mg/dL High 65 - 105 mg/dL [facility] Interpretation and review of laboratory results Abnormal [facility] Glucose [Mass/Vol] 228 mg/dL High 65 - 105 mg/dL [facility] Interpretation and review of laboratory results Abnormal [facility] POCT Glucoseon 03-05-2025 Glucose [Mass/Vol] 249 mg/dL High 74 - 100 mg/dL [facility] Portable XR Chest AP single viewon 03-05-2025 MHPN RIS CONSOLIDATED MHPN RIS CONSOLIDATED [facility] Radiology Study observation (narrative) [facility] [employer] Portable XR Chest AP single viewOrdered By: Alexey López on 03-05-2025 [facility] [employer] Work Phone: XR ABDOMEN FOR NG/OG/NE TUBE [...] Hoffman IV, MD 03/05/25 Final result [facility] MHPN RIS CONSOLIDATED MHPN RIS CONSOLIDATED [facility] Radiology Study observation (narrative) [facility] [employer] XR ABDOMEN FOR NG/OG/NE TUBE PLACEMENTOrdered By: Alex Hoffman on 03-05-2025 [facility] [employer] Work Phone: XR CHEST PORTABLEon 03-05-20 XR [...] Alexey López MD 03/05/25 Final result [facility] CBC with Auto Differentialon 03-04-2025 Basophils (Bld) [#/Vol] 0 10*3/uL [facility] Basophils/100 WBC (Bld) 0 % 0 - 2 % [facility] Eosinophils (Bld) [#/Vol] 0 10*3/uL [facility] Eosinophils/100 WBC (Bld) 0 % Low 1 - 4 % [facility] Erythrocyte distribution width (RBC) [Ratio] 15.9 % High 11.8 - 14.4 % [facility] Hematocrit (Bld) [Volume fraction] 41.8 % 36.3 - 47.1 % [facility] Hemoglobin (Bld) [Mass/Vol] 12.7 g/dL 11.9 - 15.1 g/dL [facility] Immature granulocytes (Bld) [#/Vol] 0 10*3/uL [facility] Immature granulocytes/100 WBC (Bld) 0 % 0 [facility] Interpretation and review of laboratory results Abnormal [facility] Lymphocytes/100 WBC (Bld) 4 % Low 24 - 43 % [facility] Lymphocytes/100 WBC (Bld) 0.47 % Low [facility] MCH (RBC) [Entitic mass] 27.9 pg 25.2 - 33.5 pg [facility] MCHC (RBC) [Mass/Vol] 30.4 g/dL 28.4 - 34.8 g/dL [facility] MCV (RBC) [Entitic vol] 91.9 fL 82.6 - 102.9 fL [facility] Monocytes/100 WBC (Bld) 6 % 3 - 12 % [facility] Monocytes/100 WBC (Bld) 0.7 % [facility] Morphology Kevin (Bld) [Interp] ANISOCYTOSIS PRESENT [facility] Neutrophils/100 WBC (Bld) 90 % High 36 - 65 % [facility] Nucleated RBC/100 WBC (Bld) [Ratio] 0 % 0.0 per 100 WBC [facility] Platelet mean volume (Bld) [Entitic vol] 10.4 fL 8.1 - 13.5 fL [facility] Platelets (Bld) [#/Vol] 164 10*3/uL [facility] RBC (Bld) [#/Vol] 4.55 10*6/uL 3.95 - 5.1 1 m/uL [facility] Segmented neutrophils/100 WBC (Bld) 10.53 % High [facility] WBC other (Bld) [#/Vol] 11.7 [facility] CBC with Diffon 03-04-2025 Abs. Basophil 0.00 k/uL Normal 0.00-0.20 [facility] Comment on above: Performed By: #### C DP, MG, TROPI, CMPX, LACTIC ####[facility] Qyfifcwwmcnd8036 [place], [place] [address])[phone] Director: Jose Miguel Davis MD Abs.Imm.Granulocyte 0.00 k/uL Normal 0.00-0.30 [facility] Comment on above: Performed By: #### C DP, MG, TROPI, CMPX, LACTIC ####[facility] [address]fielpbuhti0410 [place], [place] [address])[phone] Director: Jose Miguel Davis MD Abs.Neutrophil (Seg) 10.53 k/uL High 1.50-8.10 [facility] Comment on above: Performed By: #### C DP, MG, TROPI, CMPX, LACTIC ####[facility] [address]jemffzmvrh3631 [place], [place] [address])[phone] Director: Jose Miguel Davis MD Basophils/100 WBC (Bld) 0 % Normal 0-2 [facility] Comment on above: Performed By: #### C DP, MG, TROPI, CMPX, LACTIC ####[facility] Vpgmuffyjvgy0369 [place], [place] [address])[phone] Director: Jose Miguel Davis MD Eosinophils (Bld) [#/Vol] 0.00 10*3/uL Normal 0.00-0.44 [facility] Comment on above: Performed By: #### C DP, MG, TROPI, CMPX, LACTIC ####[facility] [address] [place] [address])[phone] Director: Jose Miguel Davis MD Eosinophils/100 WBC (Bld) 0 % Low 1-4 [facility] Comment on above: Performed By: #### C DP, MG, TROPI, CMPX, LACTIC ####[facility] [address] [place] [address])[phone] Director: Jose Miguel Davis MD Immature granulocytes/100 WBC (Bld) 0 % Normal 0 [facility] Comment on above: Performed By: #### C DP, MG, TROPI, CMPX, LACTIC ####[address] [address])[phone] Director: Jose Miguel Davis MD Lymphocytes (Bld) [#/Vol] 0.47 10*3/uL Low 1.10-3.70 [facility] Comment on above: Performed By: #### C DP, MG, TROPI, CMPX, LACTIC ####[address] [address])[phone] Director: Jose Miguel Davis MD Lymphocytes/100 WBC (Bld) 4 % Low 24-43 [facility] Comment on above: Performed By: #### C DP, MG, TROPI, CMPX, LACTIC ####[facility] [address] [place] [address])[phone] Director: Jose Miguel Davis MD Monocytes (Bld) [#/Vol] 0.70 10*3/uL Normal 0.10-1.20 [facility] Comment on above: Performed By: #### C DP, MG, TROPI, CMPX, LACTIC ####[facility] [address] [place] [address] Lab Director: Jose Miguel Davis MD Monocytes/100 WBC (Bld) 6 % Normal 3-12 [facility] Comment on above: Performed By: #### C DP, MG, TROPI, CMPX, LACTIC ####[facility] Hwkjexizitlc5675 [place], [place] [id number])[phone] Director: Jose Miguel Davis MD Morphology Kevin (Bld) [Interp] ANISOCYTOSIS PRESENT Normal [facility] Comment on above: Performed By: #### C DP, MG, TROPI, CMPX, LACTIC ####[facility] Qchmndtssqrx0735 [place], [place] [phone] Director: Jose Miguel Davis MD Neutrophil (Seg) 90 % High 36-65 [facility] Comment on above: Performed By: #### C DP, MG, TROPI, CMPX, LACTIC ####[facility] Wzwufqjgfjvx5775 [place], [place] [phone])[phone] Director: Jose Miguel Davis MD Erythrocyte distribution width (RBC) [Ratio] 15.9 % High 11.8-14.4 [facility] Comment on above: Performed By: #### C DP, MG, TROPI, CMPX, LACTIC ####[facility] Ugkkzsvvqtnv9342 [place], [place] [phone])[phone] Director: Jose Miguel Davis MD Hematocrit (Bld) [Volume fraction] 41.8 % Normal 36.3-47.1 [facility] Comment on above: Performed By: #### C DP, MG, TROPI, CMPX, LACTIC ####[facility] Ms[address]ugajd5338 [place], [place] [id number])[phone] Director: Jose Miguel Davis MD Hemoglobin (Bld) [Mass/Vol] 12.7 g/dL Normal 11.9-15.1 [facility] Comment on above: Performed By: #### C DP, MG, TROPI, CMPX, LACTIC ####[facility] Eaqddzzibbvo5203 [place], [place] [id number])[phone] Director: Jose Miguel Davis MD MCH (RBC) [Entitic mass] 27.9 pg Normal 25.2-33.5 [facility] Comment on above: Performed By: #### C DP, MG, TROPI, CMPX, LACTIC ####[facility] [address] [place] [address] [id number])[phone] Director: Jose Miguel Davis MD MCHC (RBC) [Mass/Vol] 30.4 g/dL Normal 28.4-34.8 [facility] Comment on above: Performed By: #### C DP, MG, TROPI, CMPX, LACTIC ####[place], [place] [address])[phone] Director: Jose Miguel Davis MD MCV (RBC) [Entitic vol] 91.9 fL Normal 82.6-102.9 [facility] Comment on above: Performed By: #### C DP, MG, TROPI, CMPX, LACTIC ####[address] [address])[phone] Director: Jose Miguel Davis MD NRBC Automated 0.0 per 100 WBC Normal 0.0 [facility] Comment on above: Performed By: #### C DP, MG, TROPI, CMPX, LACTIC ####[place], [place] [address])[phone] Director: Jose Miguel Davis MD Platelet mean volume (Bld) [Entitic vol] 10.4 fL Normal 8.1-13.5 [facility] Comment on above: Performed By: #### C DP, MG, TROPI, CMPX, LACTIC ####[address] [id number])[phone] Director: Jose Miguel Davis MD Platelets (Bld) [#/Vol] 164 10*3/uL Normal 138-453 [facility] Comment on above: Performed By: #### C DP, MG, TROPI, CMPX, LACTIC ####[facility] [address]atuigitv7084 [place] [address] Lab Director: Jose Miguel Davis MD RBC (Bld) [#/Vol] 4.55 10*6/uL Normal 3.95-5.11 [facility] Comment on above: Performed By: #### C DP, MG, TROPI, CMPX, LACTIC ####[facility] [address]xsjlttc0912 [place] [address] Lab Director: Jose Miguel Davis MD WBC (Bld) [#/Vol] 11.7 10*3/uL High 3.5-11.3 [facility] Comment on above: Performed By: #### C DP, MG, TROPI, CMPX, LACTIC ####[facility] Nvznkokbruzi7064 [place], [place] [id number] Lab Director: Jose Miguel Davis MD Cardiac [...] Health AV Area by VTI 1.4 cm2 [place] [facility] AV Mean Gradient 12 [...] 60 % 55 - 100 % [facility] EF Physician 60 % [facility] Est. RA Pressure 3 mmHg [facility] [employer] Fractional Shortening 2D 39 % 28 - 44 % [facility] Interpretation and review of laboratory results Abnormal [facility] IVC Proxmal 2.3 cm [facility] IVSd 1.2 cm Abnormal 0.6 - 0.9 cm [facility] LA Diameter 3.4 cm [facility] [place] Size Index 1.73 cm/m2 [facility] LA/AO Root Ratio 1.26 [facility] [employer] LV E' Lateral Velocity 8.38 cm/s [facility] LV E' Septal Velocity 12.1 cm/s [facility] LV EDV A2C 91 mL [facility] LV EDV A4C 98 mL [facility] EDV Index A2C 46 mL/m2 [facility] [employer] LV EDV Index A4C 50 mL/m2 [facility] [employer] LV Ejection Fraction A2C 55 % [facility] LV Ejection Fraction A4C 81 % Bon [employer] LV ESV A2C 41 mL Bon [employer] LV ESV A4C 19 mL [facility] LV ESV Index A2C 21 mL/m2 [facility] [employer] LV ESV Index A4C 10 mL/m2 [facility] [employer] LV Mass 2D 226.4 g Abnormal 67 - 162 g [facility] LV Mass 2D Index 115.5 g/m2 Abnormal 43 - 95 g/m2 [facility] LV RWT Ratio 0.49 [facility] LVIDd 4.9 cm 3.9 - 5.3 cm [facility] LVIDd Index 2.5 cm/m2 [facility] LVIDs 3 cm [facility] LVIDs Index 1.53 cm/m2 [facility] LVOT Area 2.8 cm2 [facility] LVOT Diameter 1.9 cm [facility] LVOT Mean Gradient 3 mmHg [facility] [employer] LVOT Peak Gradient 6 mmHg [facility] [employer] LVOT Peak Velocity 1.2 m/s [facility] LVOT Stroke Volume Index 28.6 mL/m2 [facility] LVOT SV 56.1 ml [facility] LVOT VTI 19.8 cm [facility] LVOT:AV VTI Index 0.5 Bon [facility] LVPWd 1.2 cm Abnormal 0.6 - 0.9 cm [facility] MV A Velocity 0.71 m/s [facility] MV Area by VTI 1.7 cm2 [place] [facility] MV E Velocity 0.92 m/s [facility] MV E Wave Deceleration Time 219 ms [facility] MV E/A 1.3 [facility] MV Max Velocity 1.1 m/s [facility] MV Mean Gradient 2 mmHg [facility] urs [facility] MV Mean Velocity 0.7 m/s [facility] urs [facility] MV Peak Gradient 5 mmHg [facility] Seco urs [facility] MV VTI 33.3 cm [facility] MV:LVOT VTI Index 1.68 [facility] RV Free Wall Peak S' 16 cm/s [facility] RVSP 30 mmHg [facility] TAPSE 1.8 cm 1.7 cm [facility] TR Max Velocity 2.62 m/s [facility] Sec rs [facility] TR Peak Gradient 27 mmHg [facility] Seco [facility] CV CPACS [facility] Radiology Study observation (narrative) [facility] Comp Metabolic Pr/rfx MGon 0 - Albumin [Mass/Vol] 2.4 g/dL Low 3.5-5.2 [facility] Comment on above: Performed By: #### C DP, MG, TROPI, CMPX, LACTIC ####[address] [place] [address] lab Director: Jose Miguel Davis MD Albumin/Glob Ratio 0.7 Low 1.0-2.5 [facility] Comment on above: Performed By: #### C DP, MG, TROPI, CMPX, LACTIC ####[id number] [place] [address] Lab Director: Jose Miguel Davis MD Alkaline Phos 66 U/L Normal 35-104 [facility] Comment on above: Performed By: #### C DP, MG, TROPI, CMPX, LACTIC ####[facility] [address] [place], [place] [phone] Director: Jose Miguel Davis MD ALT [Catalytic activity/Vol] 33 U/L Normal 10-35 [facility] Comment on above: Performed By: #### C DP, MG, TROPI, CMPX, LACTIC ####[facility] [address] [place] [address] [phone] Director: Jose Miguel Davis MD Anion gap [Moles/Vol] 13 mmol/L Normal 9-16 [facility] Comment on above: Performed By: #### C DP, MG, TROPI, CMPX, LACTIC ####[facility] [address] [place] [address] [phone] Director: Jose Miguel Davis MD AST [Catalytic activity/Vol] 29 U/L Normal 10-35 [facility] Comment on above: Performed By: #### C DP, MG, TROPI, CMPX, LACTIC ####[facility] [address] [place] [address] [phone] Director: Jose Miguel Davis MD Bilirubin [Mass/Vol] 1.3 mg/dL High 0.0-1.2 [facility] Comment on above: Performed By: #### C DP, MG, TROPI, CMPX, LACTIC ####[facility] [address] [place], [place] [phone] Director: Jose Miguel Davis MD Calcium [Mass/Vol] 8.4 mg/dL Low 8.6-10.4 [facility] Comment on above: Performed By: #### C DP, MG, TROPI, CMPX, LACTIC ####[facility] [address] [place] [address], [place] [address] Lab Director: Jose Miguel Davis MD Chloride [Moles/Vol] 102 mmol/L Normal 98-107 [facility] Comment on above: Performed By: #### C DP, MG, TROPI, CMPX, LACTIC ####[facility] [address] [place] [address] Lab Director: Jose Miguel Davis MD CO2 [Moles/Vol] 26 mmol/L Normal 20-31 [facility] Comment on above: Performed By: #### C DP, MG, TROPI, CMPX, LACTIC ####[address] [address])[phone] Director: Jose Miguel Davis MD Creatinine [Mass/Vol] 1.5 mg/dL High 0.6-0.9 [facility] Comment on above: Performed By: #### C DP, MG, TROPI, CMPX, LACTIC ####[address] [address] Lab Director: Jose Miguel Davis MD GFR/1.73 sq M.predicted among non-blacks MDRD (S/P/Bld) [Vol rate/Area] 36 mL/min/{1.73_m2} Low >60 [facility] Comment on above: Result Comment: These [...] #### C DP, MG, TROPI, CMPX, LACTIC ####[address] [address] Lab Director: Jose Miguel Davis MD Glucose [Mass/Vol] 191 mg/dL High 74-99 [facility] Comment on above: Performed By: #### C DP, MG, TROPI, CMPX, LACTIC ####[facility] [address] [place] [address] Lab Director: Jose Miguel Davis MD Potassium [Moles/Vol] 3.5 mmol/L Low 3.7-5.3 [facility] Comment on above: Result Comment: Spec imen hemolysis has exceeded the interference as defined by Ranjith. Value may be falsely increased. Suggest recollection if clinically indicated. Performed By: #### C DP, MG, TROPI, CMPX, LACTIC ####[facility] [address] [place] [address] Lab Director: Jose Miguel Davis MD Protein [Mass/Vol] 5.9 g/dL Low 6.6-8.7 [facility] Comment on above: Performed By: #### C DP, MG, TROPI, CMPX, LACTIC ####[facility] [address] [place] [address] Lab Director: Jose Miguel Davis MD Sodium [Moles/Vol] 141 mmol/L Normal 136-145 [facility] Comment on above: Performed By: #### C DP, MG, TROPI, CMPX, LACTIC ####[facility] [address] [place] [address] Lab Director: Jose Miguel Davis MD Urea nitrogen [Mass/Vol] 56 mg/dL High 8-23 [facility] Comment on above: Performed By: #### C DP, MG, TROPI, CMPX, LACTIC ####[facility] [address] [place] [address] Lab Director: Jose Miguel Davis MD Comprehensive Metabolic Pane l w/ Reflex to MGon 03-04-2025 Albumin [Mass/Vol] 2.4 g/dL Low 3.5 - 5.2 g/dL [facility] Albumin/Globulin [Mass ratio] 0.7 {ratio} Low 1.0 - 2.5 [facility] ALP [Catalytic activity/Vol] 66 U/L 35 - 104 U/L [facility] ALT [Catalytic activity/Vol] 33 U/L 10 - 35 U/L [facility] Anion gap [Moles/Vol] 13 mmol/L 9 - 16 mmol/L [facility] AST [Catalytic activity/Vol] 29 U/L 10 - 35 U/L [facility] Bilirubin [Mass/Vol] 1.3 mg/dL High 0.0 - 1 .2 mg/dL [facility] Calcium [Mass/Vol] 8.4 mg/dL Low 8.6 - 10. 4 mg/dL [facility] Chloride [Moles/Vol] 102 mmol/L 98 - 10 7 mmol/L [facility] CO2 [Moles/Vol] 26 mmol/L 20 - 31 mmol/L [facility] Creatinine [Mass/Vol] 1.5 mg/dL High 0.6 - 0.9 mg/dL [facility] Est, Glom Filt Rate 36 Low - PINF [facility] Glucose [Mass/Vol] 191 mg/dL High 74 - 99 mg/dL [facility] Potassium [Moles/Vol] 3.5 mmol/L Low 3.7 - 5.3 mmol/L [facility] Protein [Mass/Vol] 5.9 g/dL Low 6.6 - 8.7 g/dL [facility] Sodium [Moles/Vol] 141 mmol/L 136 - 145 mmol/L [facility] Urea nitrogen [Mass/Vol] 56 mg/dL High 8 - 23 mg/dL [facility] Cult,Urineon 03-04-2025 Cult,Urine Specimen Description .CLEAN CATCH URINE Special Requests Site: Urine Culture NO GROWTH Report Status FINAL 03/04/2025 Normal [facility] Comment on above: Performed By: #### U ####[facility] [address] [place] [address] lab Director: Jose Miguel Davis MD Culture, Urineon 03-04-2025 Microorganism identified Cx Nom (Unsp spec) NO GROWTH [facility] Service comment (Unsp spec) [Interp] Site: Urine [employer] Specimen Description .CLEAN CATCH URINE Touch-Writer EKG 12 LeadOrdered By: Malick Dodson on 03-04-2025 Atrial Rate 73 BPM [employer] Work Phone: P Erie 67 degrees [employer] Work Phone: P-R Interval 216 ms [employer] Work Phone: Q-T Interval 456 ms [employer] Work Phone: QRS Duration 100 ms [employer] Work Phone: QTc Calculation (Bazett) 502 ms [employer] Work Phone: R Erie -52 degrees [employer] Work Phone: T Erie 163 degrees [employer] Work Phone: Ventricular Rate 73 BPM [facility] [employer] Work Phone: [employer] Work Phone: EKG 12 Leadon 03-04-2025 [facility] STV MUSE [employer] Glucose,Whole Bloodon 2024 Glucose [Mass/Vol] 124 mg/dL High 65-105 [facility] Glucose [Mass/Vol] 156 mg/dL High 65-105 [facility] Glucose [Mass/Vol] 176 mg/dL High 65-105 [facility] Glucose [Mass/Vol] 191 mg/dL High 65-105 [facility] Glucose [Mass/Vol] 159 mg/dL High 65-105 [facility] IR CHOLECYSTOSTOMY PERCUTANE OUS COMPLETEon 03-04-2025 PN RIS CONSOLIDATED PN RIS CONSOLIDATED [facility] reportbrain Radiology Study observation (narrative) [employer] IR CHOLECYSTOSTOMY PERCUTANE OUS COMPLETEOrdered By: Tanner Baez on 03-04-2025 [employer] Work Phone: K (Potassium)on 03-04-2025 Potassium [Moles/Vol] 3.4 mmol/L Low 3.7-5.3 [facility] Comment on above: Performed By: #### T Ilan BELLE ####[facility] [address] [place], [place] [id number] lab Director: Jose Miguel Davis MD Lactic Acidon 03-04-2025 Lactic Acid, Whole Blood 1.8 mmol/L 0.7 - 2.1 mmol/L [facility] Lactic Acid,Whole Bl 1.8 mmol/L Normal 0.7-2.1 [facility] Comment on above: Performed By: #### C DP, MG, TROPI, CMPX, LACTIC ####[facility] [address] [place], [place] [id number] lab Director: Jose Miguel Davis MD MRSA DNA Probe, Nasalon 02-06 MRSA, DNA, Nasal Negative NEGATIVE [facility] Specimen Description .NASAL SWAB [facility] MRSA, DNA, Nasalon MRSA, DNA, Nasal Negative Normal NEG [facility] Comment on above: Result Comment: NEGA TIVE: MRSA DNA not detected by nucleic acid amplification. Results should be used as an adjunct to nosocomial control efforts to identify patients needing enhanced precautions. The test is not intended to identify patients with staphylococcal infections. Results should not be used to guide or monitor treatment for MRSA infections. Performed By: #### M RSANO ####[facility] [address] [place], [place] [id number] lab Director: Jose Miguel Davis MD Magnesiumon 03-04-2025 Magnesium [Mass/Vol] 2.2 mg/dL 1.6 - 2 .4 mg/dL [facility] Magnesium [Mass/Vol] 2.2 mg/dL Normal 1.6-2.4 [facility] Comment on above: Performed By: #### C DP, MG, TROPI, CMPX, LACTIC ####[facility] [address] [place] [address] lab Director: Jose Miguel Davis MD No Panel Informationon 03-04 Interpretation and review of laboratory results Abnormal [facility] Interpretation and review of laboratory results Abnormal [facility] POC Glucose Fingerstickon Glucose [Mass/Vol] 124 mg/dL High 65 - 105 mg/dL [facility] Interpretation and review of laboratory results Abnormal [facility] Glucose [Mass/Vol] 156 mg/dL High 65 - 105 mg/dL [facility] Interpretation and review of laboratory results Abnormal [facility] Glucose [Mass/Vol] 176 mg/dL High 65 - 105 mg/dL [facility] Interpretation and review of laboratory results Abnormal [facility] Glucose [Mass/Vol] 191 mg/dL High 65 - 105 mg/dL [facility] Interpretation and review of laboratory results Abnormal [facility] Glucose [Mass/Vol] 159 mg/dL High 65 - 105 mg/dL [facility] Interpretation and review of laboratory results Abnormal [facility] Potassiumon 03-04-2025 Potassium [Moles/Vol] 3.4 mmol/L Low 3.7 - 5.3 mmol/L [facility] Troponinon 03-04-2025 Interpretation and review of laboratory results Abnormal [facility] Troponin I.cardiac High sensitivity method [Mass/Vol] 112 ng/L Critically high 0 - 14 ng/L [facility] Troponin, High Sens 112 ng/L Critically high 0-14 [facility] Comment on above: Result Comment: High Sensitivity Troponin values cannot be compared with other Troponin methodologies. Previous Alert Value Reported Performed By: #### T ROPI ####[facility] [address] [place] [address] lab Director: Jose Miguel Davis MD Troponin I.cardiac High sensitivity method [Mass/Vol] 83 ng/L Critically high 0 - 14 ng/L [facility] Troponin, High Sens 83 ng/L Critically high 0-14 [facility] Comment on above: Result Comment: High Sensitivity Troponin values cannot be compared with other Troponin methodologies. Previous Alert Value Reported Performed By: #### T YOSHI, Ilan ####[facility] [address] [place], [place] [id number] lab Director: Jose Miguel Davis MD Interpretation and review of laboratory results Abnormal [facility] Troponin I.cardiac High sensitivity method [Mass/Vol] 90 ng/L Critically high 0 - 14 ng/L [facility] Troponin, High Sens 90 ng/L Critically high 0-14 [facility] Comment on above: Result Comment: High Sensitivity Troponin values cannot be compared with other Troponin methodologies. Previous Alert Value Reported Performed By: #### T YOSHI ####[facility] [address] [place], [place] [id number] lab Director: Jose Miguel Davis MD Troponin I.cardiac High sensitivity method [Mass/Vol] 101 ng/L Critically high 0 - 14 ng/L [facility] Troponin, High Sens 101 ng/L Critically high 0-14 [facility] Comment on above: Result Comment: High Sensitivity Troponin values cannot be compared with other Troponin methodologies. Previous Alert Value Reported Performed By: #### C DP, MG, TROPI, CMPX, LACTIC ####[facility] [address] [place], [place] [address] lab Director: Jose Miguel Davis MD Basic Metabolic Panel 02-06 Anion gap [Moles/Vol] 14 mmol/L 9 - 16 mmol/L [facility] Calcium [Mass/Vol] 8.4 mg/dL Low 8.6 - 10. 4 mg/dL [facility] Chloride [Moles/Vol] 102 mmol/L 98 - 10 7 mmol/L [facility] CO2 [Moles/Vol] 24 mmol/L 20 - 31 mmol/L [facility] Creatinine [Mass/Vol] 1.7 mg/dL High 0.6 - 0.9 mg/dL [facility] Est, Glom Filt Rate 31 Low - PINF [facility] S ecours [facility] Glucose [Mass/Vol] 205 mg/dL High 74 - 99 mg/dL [facility] Interpretation and review of laboratory results Abnormal [facility] Potassium [Moles/Vol] 3.4 mmol/L Low 3.7 - 5.3 mmol/L [facility] Sodium [Moles/Vol] 140 mmol/L 136 - 145 mmol/L [facility] Urea nitrogen [Mass/Vol] 57 mg/dL High 8 - 23 mg/dL [facility] Basic Metabolic Profon 03-03 Anion gap [Moles/Vol] 14 mmol/L Normal 9-16 [facility] Comment on above: Performed By: #### B MP ####[facility] [address] [place] [address] Lab Director: Jose Miguel Davis MD Calcium [Mass/Vol] 8.4 mg/dL Low 8.6-10.4 [facility] Comment on above: Performed By: #### B MP ####[facility] [address] [place], [place] [address])[phone] Director: Jose Miguel Davis MD Chloride [Moles/Vol] 102 mmol/L Normal 98-107 [facility] Comment on above: Performed By: #### B MP ####[facility] [address] [place] [address] Lab Director: Jose Miguel Davis MD CO2 [Moles/Vol] 24 mmol/L Normal 20-31 [facility] Comment on above: Performed By: #### B MP ####[facility] [address]ef[address] [place] [address] Lab Director: Jose Miguel Davis MD Creatinine [Mass/Vol] 1.7 mg/dL High 0.6-0.9 [facility] Comment on above: Performed By: #### B MP ####[facility] [address] [place] [address] Lab Director: Jose Miguel Davis MD GFR/1.73 sq M.predicted among non-blacks MDRD (S/P/Bld) [Vol rate/Area] 31 mL/min/{1.73_m2} Low >60 [facility] Comment on above: Result Comment: These [...] tubular secretion. Performed By: #### B MP ####[address] [address] Lab Director: Jose Miguel Davis MD Glucose [Mass/Vol] 205 mg/dL High 74-99 [facility] Comment on above: Performed By: #### B MP ####[address] [address] Lab Director: Jose Miguel Davis MD Potassium [Moles/Vol] 3.4 mmol/L Low 3.7-5.3 [facility] Comment on above: Result Comment: Spec imen hemolysis has exceeded the interference as defined by Ranjith. Value may be falsely increased. Suggest recollection if clinically indicated. Performed By: #### B MP ####[address] [address] Lab Director: Jose Miguel Davis MD Sodium [Moles/Vol] 140 mmol/L Normal 136-145 [facility] Comment on above: Performed By: #### B MP ####[address] [address] Lab Director: Jose Miguel Davis MD Urea nitrogen [Mass/Vol] 57 mg/dL High 8-23 [facility] Comment on above: Performed By: #### B MP ####[facility] [address] [place] [address] lab Director: Jose Miguel Davis MD CBCon 03-03-2025 Erythrocyte distribution width (RBC) [Ratio] 15.8 % High 11.8 - 14.4 % [facility] Hematocrit (Bld) [Volume fraction] 41.8 % 36.3 - 47.1 % [facility] Hemoglobin (Bld) [Mass/Vol] 12.8 g/dL 11.9 - 15.1 g/dL [facility] Interpretation and review of laboratory results Abnormal [facility] MCH (RBC) [Entitic mass] 27.9 pg 25.2 - 33.5 pg [facility] MCHC (RBC) [Mass/Vol] 30.6 g/dL 28.4 - 34.8 g/dL [facility] MCV (RBC) [Entitic vol] 91.3 fL 82.6 - 102.9 fL [facility] Nucleated RBC/100 WBC (Bld) [Ratio] 0.2 % High 0.0 per 100 WBC [facility] Platelet mean volume (Bld) [Entitic vol] 10.5 fL 8.1 - 13.5 fL [facility] Platelets (Bld) [#/Vol] 189 10*3/uL [facility] RBC (Bld) [#/Vol] 4.58 10*6/uL 3.95 - 5.1 1 m/uL [facility] WBC other (Bld) [#/Vol] 12.6 High [facility] Erythrocyte distribution width (RBC) [Ratio] 15.8 % High 11.8-14.4 [facility] Comment on above: Performed By: #### C P, CBC ####[facility] [address] [place], [place] [id number] lab Director: Jose Miguel Davis MD Hematocrit (Bld) [Volume fraction] 41.8 % Normal 36.3-47.1 [facility] Comment on above: Performed By: #### C P, CBC ####[facility] [address] [place] [address] Lab Director: Jose Miguel Davis MD Hemoglobin (Bld) [Mass/Vol] 12.8 g/dL Normal 11.9-15.1 [facility] Comment on above: Performed By: #### C P, CBC ####[address] [address] Lab Director: Jose Miguel Davis MD MCH (RBC) [Entitic mass] 27.9 pg Normal 25.2-33.5 [facility] Comment on above: Performed By: #### C P, CBC ####[address] [address] lab Director: Jose Miguel Davis MD MCHC (RBC) [Mass/Vol] 30.6 g/dL Normal 28.4-34.8 [facility] Comment on above: Performed By: #### C P, CBC ####[address] [phone] Director: Jose Miguel Davis MD MCV (RBC) [Entitic vol] 91.3 fL Normal 82.6-102.9 [facility] Comment on above: Performed By: #### C P, CBC ####[address] [address] Lab Director: Jose Miguel Davis MD NRBC Automated 0.2 per 100 WBC High 0.0 [facility] Comment on above: Performed By: #### C P, CBC ####[address] [address] Lab Director: Jose Miguel Davis MD Platelet mean volume (Bld) [Entitic vol] 10.5 fL Normal 8.1-13.5 [facility] Comment on above: Performed By: #### C P, CBC ####[address] [address] Lab Director: Jose Miguel Davis MD Platelets (Bld) [#/Vol] 189 10*3/uL Normal 138-453 [facility] Comment on above: Performed By: #### C P, CBC ####[facility] [address] [place] [address] Lab Director: Jose Miguel Davis MD RBC (Bld) [#/Vol] 4.58 10*6/uL Normal 3.95-5.11 [facility] Comment on above: Performed By: #### C P, CBC ####[facility] [address] [place] [address] Lab Director: Jose Miguel Davis MD WBC (Bld) [#/Vol] 12.6 10*3/uL High 3.5-11.3 [facility] Comment on above: Performed By: #### C P, CBC ####[facility] [address] [place] [address] Lab Director: Jose Miguel Davis MD CBC [...] granulocytes/100 WBC (Bld) 1 % High 0 [facility] Interpretation and review of laboratory results Abnormal [facility] Lymphocytes/100 WBC (Bld) 6 % Low 24 - 44 % [facility] Lymphocytes/100 WBC (Bld) 0.7 % Low [facility] MCH (RBC) [Entitic mass] 27.8 pg 25.2 - 33.5 pg [facility] MCHC (RBC) [Mass/Vol] 30.2 g/dL 28.4 - 34.8 g/dL [facility] MCV (RBC) [Entitic vol] 92.1 fL 82.6 - 102.9 fL [facility] Monocytes/100 WBC (Bld) 7 % 1 - 7 % [facility] Monocytes/100 WBC (Bld) 0.82 % High [facility] Morphology Kevin (Bld) [Interp] ANISOCYTOSIS PRESENT [facility] Neutrophils/100 WBC (Bld) 86 % High 36 - 66 % [facility] Nucleated RBC/100 WBC (Bld) [Ratio] 0.2 % High 0.0 per 100 WBC [facility] Platelet mean volume (Bld) [Entitic vol] 10.3 fL 8.1 - 13.5 fL [facility] Platelets (Bld) [#/Vol] 167 10*3/uL [facility] RBC (Bld) [#/Vol] 4.53 10*6/uL 3.95 - 5.1 1 m/uL [facility] Segmented neutrophils/100 WBC (Bld) 10.06 % High [facility] WBC other (Bld) [#/Vol] 11.7 [facility] CBC with Diffon 03-03-2025 Abs. Basophil 0.00 k/uL Normal 0.0-0.2 [facility] Comment on above: Performed By: #### C MPX, PT, CDP, MG ####[address] [place] [address] lab Director: Jose Miguel Davis MD Abs.Imm.Granulocyte 0.12 k/uL Normal 0.00-0.30 [facility] Comment on above: Performed By: #### C MPX, PT, CDP, MG ####[facility] Bjuogxnjqhup2906 [place], [place] [address])[phone] Director: Jose Miguel Davis MD Abs.Neutrophil (Seg) 10.06 k/uL High 1.8-7.7 [facility] Comment on above: Performed By: #### C MPX, PT, CDP, MG ####[facility] Atqtbfjwtxbs9639 [place], [place] [address])[phone] Director: Jose Miguel Davis MD Basophils/100 WBC (Bld) 0 % Normal 0-2 [facility] Comment on above: Performed By: #### C MPX, PT, CDP, MG ####[facility] [address]qcfrjo69[address] [place], [place] [address])[phone] Director: Jose Miguel Davis MD Eosinophils (Bld) [#/Vol] 0.00 10*3/uL Normal 0.0-0.4 [facility] Comment on above: Performed By: #### C MPX, PT, CDP, MG ####[facility] [address] [place] [address])[phone] Director: Jose Miguel Davis MD Eosinophils/100 WBC (Bld) 0 % Low 1-4 [facility] Comment on above: Performed By: #### C MPX, PT, CDP, MG ####[facility] [address] [place] [address])[phone] Director: Jose Miguel Davis MD Immature granulocytes/100 WBC (Bld) 1 % High 0 [facility] Comment on above: Performed By: #### C MPX, PT, CDP, MG ####[facility] [address]abjtbjrbgpl6612 [place], [place] [address])[phone] Director: Jose Miguel Davis MD Lymphocytes (Bld) [#/Vol] 0.70 10*3/uL Low 1.0-4.8 [facility] Comment on above: Performed By: #### C MPX, PT, CDP, MG ####[facility] [address] [place], [place] [id number])[phone] Director: Jose Miguel Davis MD Lymphocytes/100 WBC (Bld) 6 % Low 24-44 [facility] Comment on above: Performed By: #### C MPX, PT, CDP, MG ####[facility] [address] [place], [place] [address])[phone] Director: Jose Miguel Davis MD Monocytes (Bld) [#/Vol] 0.82 10*3/uL High 0.1-0.8 [facility] Comment on above: Performed By: #### C MPX, PT, CDP, MG ####[facility] [address]im[address]opwcif[address] [place], [place] [address])[phone] Director: Jose Miguel Davis MD Monocytes/100 WBC (Bld) 7 % Normal 1-7 [facility] Comment on above: Performed By: #### C MPX, PT, CDP, MG ####[facility] [address] [place], [place] [address])[phone] Director: Jose Miguel Davis MD Morphology Kevin (Bld) [Interp] ANISOCYTOSIS PRESENT Normal [facility] Comment on above: Performed By: #### C MPX, PT, CDP, MG ####[facility] [address]oy[address]uuhu[address] [place], [place] [id number])[phone] Director: Jose Miguel Davis MD Neutrophil (Seg) 86 % High 36-66 [facility] Comment on above: Performed By: #### C MPX, PT, CDP, MG ####[facility] Ybsllljphxrq0753 [place], [place] [address])[phone] Director: Jose Miguel Davis MD Erythrocyte distribution width (RBC) [Ratio] 15.7 % High 11.8-14.4 [facility] Comment on above: Performed By: #### C MPX, PT, CDP, MG ####[facility] [address], [place] [address])[phone] Director: Jose Miguel Davis MD Hematocrit (Bld) [Volume fraction] 41.7 % Normal 36.3-47.1 [facility] Comment on above: Performed By: #### C MPX, PT, CDP, MG ####[facility] [address] [place] [address])[phone] Director: Jose Miguel Davis MD Hemoglobin (Bld) [Mass/Vol] 12.6 g/dL Normal 11.9-15.1 [facility] Comment on above: Performed By: #### C MPX, PT, CDP, MG ####[address] [address])[phone] Director: Jose Miguel Davis MD MCH (RBC) [Entitic mass] 27.8 pg Normal 25.2-33.5 [facility] Comment on above: Performed By: #### C MPX, PT, CDP, MG ####[address] [address])[phone] Director: Jose Miguel Davis MD MCHC (RBC) [Mass/Vol] 30.2 g/dL Normal 28.4-34.8 [facility] Comment on above: Performed By: #### C MPX, PT, CDP, MG ####[place], [place] [address])[phone] Director: Jose Miguel Davis MD MCV (RBC) [Entitic vol] 92.1 fL Normal 82.6-102.9 [facility] Comment on above: Performed By: #### C MPX, PT, CDP, MG ####[facility] [address] [place] [address])[phone] Director: Jose Miguel Davis MD NRBC Automated 0.2 per 100 WBC High 0.0 [facility] Comment on above: Performed By: #### C MPX, PT, CDP, MG ####[facility] Awtbtritpks[address]8768 [place], [place] [id number])[phone] Director: Jose Miguel Davis MD Platelet mean volume (Bld) [Entitic vol] 10.3 fL Normal 8.1-13.5 [facility] Comment on above: Performed By: #### C MPX, PT, CDP, MG ####[facility] Flbidronksxv0374 [place] [address]([facility])[phone] Director: Jose Miguel Davis MD Platelets (Bld) [#/Vol] 167 10*3/uL Normal 138-453 [facility] Comment on above: Performed By: #### C MPX, PT, CDP, MG ####[address] [address])[phone] Director: Jose Miguel Davis MD RBC (Bld) [#/Vol] 4.53 10*6/uL Normal 3.95-5.11 [facility] Comment on above: Performed By: #### C MPX, PT, CDP, MG ####[facility] [address]nwce[address]oonlg1737 [place], [place] [address])[phone] Director: Jose Miguel Davis MD WBC (Bld) [#/Vol] 11.7 10*3/uL High 3.5-11.3 [facility] Comment on above: Performed By: #### C MPX, PT, CDP, MG ####[facility] Vribeahmutos2687 [place] [address]([facility])[phone] Director: Jose Miguel Davis MD Comp Metabolic Pr/rfx MGon 0 4- Albumin [Mass/Vol] 2.4 g/dL Low 3.5-5.2 [facility] Comment on above: Performed By: #### C MPX, PT, CDP, MG ####[facility] [address]uk[address]xewv[address]3 [place], [place] [address])[phone] Director: Jose Miguel Davis MD Albumin/Glob Ratio 0.7 Low 1.0-2.5 [facility] Comment on above: Performed By: #### C MPX, PT, CDP, MG ####[facility] Qnlssjtqktfi2053 [place], [place] [id number])[phone] Director: Jose Miguel Davis MD Alkaline Phos 61 U/L Normal 35-104 [facility] Comment on above: Performed By: #### C MPX, PT, CDP, MG ####[facility] Ciow[address]at5966 [place], [place] [phone])[phone] Director: Jose Miguel Davis MD ALT [Catalytic activity/Vol] 36 U/L High 10-35 [facility] Comment on above: Performed By: #### C MPX, PT, CDP, MG ####[facility] [address]khpggry1637 [place], [place] [address]25419)[phone] Director: Jose Miguel Davis MD Anion gap [Moles/Vol] 17 mmol/L High 9-16 [facility] Comment on above: Performed By: #### C MPX, PT, CDP, MG ####[facility] [address]emty[address]xqw2467 [place], [place] 19508419)[phone] Director: Jose Miguel Davis MD AST [Catalytic activity/Vol] 30 U/L Normal 10-35 [facility] Comment on above: Result Comment: Spec imen hemolysis has exceeded the interference as defined by Ranjith. Value may be falsely increased. Suggest recollection if clinically indicated. Performed By: #### C MPX, PT, CDP, MG ####[facility] Dxbtxiuueyuq2711 [place], [place] [id number])[phone] Director: Jose Miguel Davis MD Bilirubin [Mass/Vol] 1.4 mg/dL High 0.0-1.2 [facility] Comment on above: Performed By: #### C MPX, PT, CDP, MG ####[facility] Ekx[address]bwkpad5655 [place], [place] [phone])[phone] Director: Jose Miguel Davis MD Calcium [Mass/Vol] 8.3 mg/dL Low 8.6-10.4 [facility] Comment on above: Performed By: #### C MPX, PT, CDP, MG ####[facility] [address]acttdrqgo5859 [place] [address] Lab Director: Jose Miguel Davis MD Chloride [Moles/Vol] 100 mmol/L Normal 98-107 [facility] Comment on above: Performed By: #### C MPX, PT, CDP, MG ####[facility] Egmtkjujblbm9908 [place] [address] Lab Director: Jose Miguel Davis MD CO2 [Moles/Vol] 21 mmol/L Normal 20-31 [facility] Comment on above: Performed By: #### C MPX, PT, CDP, MG ####[address] [address] Lab Director: Jose Miguel Davis MD Creatinine [Mass/Vol] 2.1 mg/dL High 0.6-0.9 [facility] Comment on above: Performed By: #### C MPX, PT, CDP, MG ####[address] [address] Lab Director: Jose Miguel Davis MD GFR/1.73 sq M.predicted among non-blacks MDRD (S/P/Bld) [Vol rate/Area] 24 mL/min/{1.73_m2} Low >60 [facility] Comment on above: Result Comment: These [...] By: #### C MPX, PT, CDP, MG ####[facility] Mrmqezcuojkr1673 [place] [address] Lab Director: Jose Miguel Davis MD Glucose [Mass/Vol] 219 mg/dL High 74-99 [facility] Comment on above: Performed By: #### C MPX, PT, CDP, MG ####[facility] [address] [place], [place] [phone])[phone] Director: Jose Miguel Davis MD Potassium [Moles/Vol] 3.1 mmol/L Low 3.7-5.3 [facility] Comment on above: Result Comment: Spec imen hemolysis has exceeded the interference as defined by Ranjith. Value may be falsely increased. Suggest recollection if clinically indicated. Performed By: #### C MPX, PT, CDP, MG ####[facility] Pjcaexmqjcou1108 [place], [place] [id number])[phone] Director: Jose Miguel Davis MD Protein [Mass/Vol] 5.8 g/dL Low 6.6-8.7 [facility] Comment on above: Performed By: #### C MPX, PT, CDP, MG ####[facility] Tyewsdutxqxm0428 [place], [place] 47585419)[phone] Director: Jose Miguel Davis MD Sodium [Moles/Vol] 138 mmol/L Normal 136-145 [facility] Comment on above: Performed By: #### C MPX, PT, CDP, MG ####[facility] Xwfnzrbhsqwl9316 [place], [place] [phone])[phone] Director: Jose Miguel Davis MD Urea nitrogen [Mass/Vol] 63 mg/dL High 8-23 [facility] Comment on above: Performed By: #### C MPX, PT, CDP, MG ####[facility] Shffttmusszq9313 [place], [place] 14083419)[phone] Director: Jose Miguel Davis MD Comp Metabolic Profon 2024 Albumin [Mass/Vol] 3.1 g/dL Low 3.5-5.2 [facility] Comment on above: Performed By: #### C P, CBC ####[facility] [address]mdftfxstl75[address] [place], [place] [id number])[phone] Director: Jose Miguel Davis MD Albumin/Glob Ratio 1.2 Normal 1.0-2.5 [facility] Comment on above: Performed By: #### C P, CBC ####[facility] Cf[address]xcdjloib7907 [place], [place] [phone])[phone] Director: Jose Miguel Davis MD Alkaline Phos 63 U/L Normal 35-104 [facility] Comment on above: Performed By: #### C P, CBC ####[facility] T[address] [place], [place] [id number])[phone] Director: Jose Miguel Davis MD ALT [Catalytic activity/Vol] 46 U/L High 10-35 [facility] Comment on above: Performed By: #### C P, CBC ####[facility] [address] [place] [address] 33339419)[phone] Director: Jose Miguel Davis MD Anion gap [Moles/Vol] 20 mmol/L High 9-16 [facility] Comment on above: Performed By: #### C P, CBC ####[facility] Tzuhrnlgonho7468 [place], [place] [phone])[phone] Director: Jose Miguel Davis MD AST [Catalytic activity/Vol] 33 U/L Normal 10-35 [facility] Comment on above: Performed By: #### C P, CBC ####[facility] Sbzbgvkpfbmp8470 [place], [place] 25160419)[phone] Director: Jose Miguel Davis MD Bilirubin [Mass/Vol] 1.6 mg/dL High 0.0-1.2 [facility] Comment on above: Performed By: #### C P, CBC ####[facility] Ib[address]co[address] [place], [place] 40460419)[phone] Director: Jose Miguel Davis MD Calcium [Mass/Vol] 8.4 mg/dL Low 8.6-10.4 [facility] Comment on above: Performed By: #### C P, CBC ####[facility] Fmwsxsdaexot8172 [place], [place] 17239419)[phone] Director: Jose Miguel Davis MD Chloride [Moles/Vol] 97 mmol/L Low 98-107 [facility] Comment on above: Performed By: #### C P, CBC ####[facility] Ajdremchjsus5948 [place], [place] [phone])[phone] Director: Jose Miguel Davis MD CO2 [Moles/Vol] 24 mmol/L Normal 20-31 [facility] Comment on above: Performed By: #### C P, CBC ####[facility] [address] [place] [address] [phone])[phone] Director: Jose Miguel Davis MD Creatinine [Mass/Vol] 2.2 mg/dL High 0.6-0.9 [facility] Comment on above: Performed By: #### C P, CBC ####[address] [address])[phone] Director: Jose Miguel Davis MD GFR/1.73 sq M.predicted among non-blacks MDRD (S/P/Bld) [Vol rate/Area] 23 mL/min/{1.73_m2} Low >60 [facility] Comment on above: Result Comment: These [...] secretion. Performed By: #### C P, CBC ####[address] [id number])[phone] Director: Jose Miguel Davis MD Glucose [Mass/Vol] 224 mg/dL High 74-99 [facility] Comment on above: Performed By: #### C P, CBC ####[facility] [address]ys[address]fy[address]658 [place] [address] Lab Director: Jose Miguel Davis MD Potassium [Moles/Vol] 3.1 mmol/L Low 3.7-5.3 [facility] Comment on above: Result Comment: Spec imen hemolysis has exceeded the interference as defined by Ranjith. Value may be falsely increased. Suggest recollection if clinically indicated. Performed By: #### C P, CBC ####[facility] U[address]vlez0960 [place] [address] Lab Director: Jose Miguel Davis MD Protein [Mass/Vol] 5.6 g/dL Low 6.6-8.7 [facility] Comment on above: Performed By: #### C P, CBC ####[facility] [address]sw[address]24 [place] [address] Lab Director: Jose Miguel Davis MD Sodium [Moles/Vol] 141 mmol/L Normal 136-145 [facility] Comment on above: Performed By: #### C P, CBC ####[facility] [address]rmleoppwzxg1652 [place] [address] Lab Director: Jose Miguel Davis MD Urea nitrogen [Mass/Vol] 60 mg/dL High 8-23 [facility] Comment on above: Performed By: #### C P, CBC ####[facility] X[address]aded[address]rsm5534 [place], [place] [phone] Director: Jose Miguel Davis MD Comprehensive Metabolic Pane [facility] 03-03-2025 Albumin [Mass/Vol] 3.1 g/dL Low 3.5 - 5.2 g/dL [facility] Albumin/Globulin [Mass ratio] 1.2 {ratio} 1.0 - 2.5 [facility] ALP [Catalytic activity/Vol] 63 U/L 35 - 104 U/L [facility] ALT [Catalytic activity/Vol] 46 U/L High 10 - 35 U/L [facility] Anion gap [Moles/Vol] 20 mmol/L High 9 - 16 mmol/L [facility] AST [Catalytic activity/Vol] 33 U/L 10 - 35 U/L [facility] Bilirubin [Mass/Vol] 1.6 mg/dL High 0.0 - 1 .2 mg/dL [facility] Calcium [Mass/Vol] 8.4 mg/dL Low 8.6 - 10. 4 mg/dL [facility] Chloride [Moles/Vol] 97 mmol/L Low 98 - 10 7 mmol/L [facility] CO2 [Moles/Vol] 24 mmol/L 20 - 31 mmol/L [facility] Creatinine [Mass/Vol] 2.2 mg/dL High 0.6 - 0.9 mg/dL [facility] Est, Glom Filt Rate 23 Low - PINF [facility] Glucose [Mass/Vol] 224 mg/dL High 74 - 99 mg/dL [facility] Interpretation and review of laboratory results Abnormal [facility] Potassium [Moles/Vol] 3.1 mmol/L Low 3.7 - 5.3 mmol/L [facility] Protein [Mass/Vol] 5.6 g/dL Low 6.6 - 8.7 g/dL [facility] Sodium [Moles/Vol] 141 mmol/L 136 - 145 mmol/L [facility] Urea nitrogen [Mass/Vol] 60 mg/dL High 8 - 23 mg/dL [facility] Comprehensive Metabolic Pane l w/ Reflex to MGon 03-03-2025 Albumin [Mass/Vol] 2.4 g/dL Low 3.5 - 5.2 g/dL [facility] Albumin/Globulin [Mass ratio] 0.7 {ratio} Low 1.0 - 2.5 [facility] ALP [Catalytic activity/Vol] 61 U/L 35 - 104 U/L [facility] ALT [Catalytic activity/Vol] 36 U/L High 10 - 35 U/L [facility] Anion gap [Moles/Vol] 17 mmol/L High 9 - 16 mmol/L [facility] AST [Catalytic activity/Vol] 30 U/L 10 - 35 U/L [facility] Bilirubin [Mass/Vol] 1.4 mg/dL High 0.0 - 1 .2 mg/dL [facility] Calcium [Mass/Vol] 8.3 mg/dL Low 8.6 - 10. 4 mg/dL [facility] Chloride [Moles/Vol] 100 mmol/L 98 - 10 7 mmol/L [facility] CO2 [Moles/Vol] 21 mmol/L 20 - 31 mmol/L [facility] Creatinine [Mass/Vol] 2.1 mg/dL High 0.6 - 0.9 mg/dL [facility] Est, Glom Filt Rate 24 Low - PINF [facility] Glucose [Mass/Vol] 219 mg/dL High 74 - 99 mg/dL [facility] Interpretation and review of laboratory results Abnormal [facility] Potassium [Moles/Vol] 3.1 mmol/L Low 3.7 - 5.3 mmol/L [facility] Protein [Mass/Vol] 5.8 g/dL Low 6.6 - 8.7 g/dL [facility] Sodium [Moles/Vol] 138 mmol/L 136 - 145 mmol/L [facility] Urea nitrogen [Mass/Vol] 63 mg/dL High 8 - 23 mg/dL [facility] Glucose,Whole Bloodon 2024 Glucose [Mass/Vol] 184 mg/dL High 65-105 [facility] Glucose [Mass/Vol] 183 mg/dL High 65-105 [facility] Lactic Acidon 03-03-2025 Interpretation and review of laboratory results Abnormal [facility] Lactic Acid, Whole Blood 2.3 mmol/L High 0.7 - 2.1 mmol/L [facility] Lactic Acid,Whole Bl 2.3 mmol/L High 0.7-2.1 [facility] Comment on above: Performed By: #### L ACTIC ####[facility] [address]ws[address] [place] [address] lab Director: Jose Miguel Davis MD Lipaseon 03-03-2025 Lipase [Catalytic activity/Vol] 23 U/L 13 - 60 U/L [facility] Lipase [Catalytic activity/Vol] 23 U/L Normal 13-60 [facility] Comment on above: Performed By: #### T ROPI, LIP ####[facility] Vbvicrjsrolt[address]4 [place] [address] lab Director: Jose Miguel Davis MD MR Abdomen WO contraston MHPN RIS CONSOLIDATED PN RIS CONSOLIDATED [facility] Radiology Study observation (narrative) [facility] MR Abdomen WO contrastOrdere d By: Joby Hickey on 03-03-2025 [facility] Work Phone: MRI ABDOMEN WO [...] Interpreted by: Joby Hickey MD Signed by: Joyb Hickey MD 03/03/25 Final result Normal [facility] MRSA, DNA, Nasalon Specimen Description .NASAL SWAB Normal [facility] Comment on above: Performed By: #### M RSANO ####[facility] Fvqpqfjypqhc4424 [place], [place] [id number] lab Director: Jose Miguel Davis MD Magnesiumon 03-03-2025 Magnesium [Mass/Vol] 2.2 mg/dL 1.6 - 2 .4 mg/dL [facility] Magnesium [Mass/Vol] 2.2 mg/dL Normal 1.6-2.4 [facility] Comment on above: Performed By: #### C MPX, PT, CDP, MG ####[facility] Qzmwjtnhewmq2423 [place], [place] [id number] lab Director: Jose Miguel Davis MD No Panel Informationon 03-03 [facility] POC Glucose Fingerstickon Glucose [Mass/Vol] 184 mg/dL High 65 - 105 mg/dL [facility] Interpretation and review of laboratory results Abnormal [facility] Glucose [Mass/Vol] 183 mg/dL High 65 - 105 mg/dL [facility] Interpretation and review of laboratory results Abnormal [facility] PTon 03-03-2025 INR Coag (PPP) [Relative time] 1.5 {INR} Normal [facility] Comment on above: Result Comment: Therapeutic Range: Moderate Anticoagulant Intensity: INR = 2.0-3.0 High Anticoagulant Intensity: INR = 2.5-3.5 Performed By: #### C MPX, PT, CDP, MG ####[facility] [address] [place], [place] [id number] lab Director: Jose Miguel Davis MD PT Coag (PPP) [Time] 18.2 s High 11.7-14.9 [facility] Comment on above: Performed By: #### C MPX, PT, CDP, MG ####[employer] Yqkwtkltsaaa1616 [place] [address] lab Director: Jose Miguel Davis MD Portable XR Chest AP single viewon 03-03-2025 MHPN RIS CONSOLIDATED MHPN RIS CONSOLIDATED [facility] Radiology Study observation (narrative) [facility] Portable XR Chest AP single viewOrdered By: Orlando Carballo on 03-03-2025 [facility] Work Phone: [employer] 03-03-2025 INR Coag (PPP) [Relative time] 1.5 {INR} [facility] Interpretation and review of laboratory results Abnormal [facility] PT Coag (PPP) [Time] 18.2 s High [facility] TYPE AND SCREENon 03-03-2025 ABO and Rh group Nom (Bld) Blood group A Rh(D) positive [facility] Arm Band Number BE [id number] [facility] Blood Bank Sample Expiration 03/06/2025,2359 [facility] Blood group antibodies identified Nom Negative [facility] Troponinon 03-03-2025 Interpretation and review of laboratory results Abnormal [facility] Troponin I.cardiac High sensitivity method [Mass/Vol] 108 ng/L Critically high 0 - 14 ng/L [facility] Troponin, High Sens 108 ng/L Critically high 0-14 [facility] Comment on above: Result Comment: High Sensitivity Troponin values cannot be compared with other Troponin methodologies. Performed By: #### T ROPI, LIP ####[employer] Vvgtjbxdoelr6176 [place] [address] lab Director: Jose Miguel Davis MD Type + Screenon 03-03-2025 Type + Screen Sample Expiration 03/06/2025,2359 Arm Band Number BE [id number] ABO/Rh(D) A POSITIVE Antibody Screen NEGATIVE Normal [facility] Comment on above: Performed By: #### T YS #### [facility] [employer] [address] [place], [place] [id number] Program Analyst: Jose Miguel Davis MD US ABDOMEN LIMITEDon [...] Columba Wyatt MD 03/03/25 Final result Normal [facility] US Abdomen limitedon 025 MHPN RIS CONSOLIDATED PN RIS CONSOLIDATED [facility] Radiology Study observation (narrative) [facility] US Abdomen limitedOrdered By : Columba Wyatt on 03-03-2025 [facility] [employer] Work Phone: Urinalysis w/ Microon 2024 Bacteria None Normal NONE [facility] Comment on above: Performed By: #### U AMIC ####[employer] [place] [address] Lab Director: Jose Miguel Davis MD Casts None Normal 0-2 [facility] Comment on above: Performed By: #### U AMIC ####[employer] [address] [place] [address] Lab Director: Jose Miguel Davis MD Epithelial cells LM Ql (Urine sed) 5 TO 10 Normal 0-5 [facility] Comment on above: Performed By: #### U AMIC ####[facility] Ydyzmawplgxs8452 [place], [place] [id number])[phone] Director: Jose Miguel Davis MD Urine RBC's 5 TO 10 Normal 0-2 [facility] Comment on above: Performed By: #### U AMIC ####[facility] [place], [place] [id number])[phone] Director: Jose Miguel Davis MD Urine WBC's 20 TO 50 Normal 0-5 [facility] Comment on above: Performed By: #### U AMIC ####[address] [id number])[phone] Director: Jose Miguel Davis MD Bilirubin, SemiQt,Ur Negative Normal NEG [facility] Comment on above: Performed By: #### U AMIC ####[address] [id number])[phone] Director: Jose Miguel Davis MD Blood, Urine MODERATE Abnormal NEG [facility] Comment on above: Performed By: #### U AMIC ####[address] [id number])[phone] Director: Jose Miguel Davis MD Clarity (U) Cloudy Abnormal CLEAR [facility] Comment on above: Performed By: #### U AMIC ####[address] [id number])[phone] Director: Jose Miguel Davis MD Color (U) Yellow Normal [facility] Comment on above: Performed By: #### U AMIC ####[address] [phone] Director: Jose Miguel Davis MD Glucose Ql (U) Negative Normal [facility] Comment on above: Performed By: #### U AMIC ####[address] [phone] Director: Jose Miguel Davis MD Ketones Ql (U) Negative Normal [facility] Comment on above: Performed By: #### U AMIC ####[facility] [address] [place] [address] Lab Director: Jose Miguel Davis MD Leukocyte esterase Test strip Ql (U) MODERATE Abnormal [facility] Comment on above: Performed By: #### U AMIC ####[facility] [address] [place] [address] Lab Director: Jose Miguel Davis MD Nitrite,Ur Negative Normal [facility] Comment on above: Performed By: #### U AMIC ####[place] [place] [address] Lab Director: Jose Miguel Davis MD PH,Ur 5.5 Normal 5.0-8.0 [facility] Comment on above: Performed By: #### U AMIC ####[address] [address] Lab Director: Jose Miguel Davis MD Protein Ql (U) 2+ mg/dL Abnormal [facility] Comment on above: Performed By: #### U AMIC ####[facility] [place], [place] [phone] Director: Jose Miguel Davis MD Spec. [place],Ur 1.020 Normal 1.005-1.030 [facility] Comment on above: Performed By: #### U AMIC ####[facility] [address] [place] [address] Lab Director: Jose Miguel Davis MD Urobilinogen,Ur Normal Normal 0.0-1.0 [facility] Comment on above: Performed By: #### U AMIC ####[facility] [place] [address] Lab Director: Jose Miguel Davis MD Urinalysis with Microscopico n 03-03-2025 Bacteria LM Ql (Urine sed) None None [facility] Bilirubin Ql (U) Negative NEGATIVE [facility] Casts LM.LPF (Urine sed) [#/Area] None [facility] Clarity (U) Cloudy Abnormal Clear [facility] Color (U) Yellow Yellow [facility] Epithelial cells LM.HPF (Urine sed) [#/Area] 5 TO 10 [facility] Glucose Test strip (U) [Mass/Vol] Negative NEGATIVE mg/dL [facility] Hemoglobin Auto test strip Ql (U) MODERATE Abnormal NEGATIVE [facility] Interpretation and review of laboratory results Abnormal [facility] Ketones (U) [Mass/Vol] Negative NEGATIVE mg/dL [facility] Leukocyte esterase Test strip Ql (U) MODERATE Abnormal NEGATIVE [facility] Nitrite Ql (U) Negative NEGATIVE [facility] pH (U) 5.5 [pH] 5.0 - 8.0 [facility] Protein (U) [Mass/Vol] 2+ Abnormal NEGATIVE mg/dL [facility] RBC LM.HPF (Urine sed) [#/Area] 5 TO 10 [facility] Specific gravity (U) [Rel density] 1.02 1.005 - 1.030 [facility] Urobilinogen Qn (U) Normal 0.0 - 1. 0 EU/dL [facility] WBC LM.HPF (Urine sed) [#/Area] 20 TO 50 [facility] Urine Cultureon 03-03-2025 Bacteria identified Cx Nom (U) <9,000 colonies/ml mixed bacterial skin contaminants 2 Days PERFORMED BY: [facility] [address] [place] [address] PATHOLOGIST ENDOCRINOLOGY SPECIALIST SANJUANITA GHOTRA M.D. Normal [facility] Comment on above: Performed By: #### C UU #### [address] XR CHEST PORTABLEon 03-03-20 25 XR CHEST [...] Orlando Carballo MD 03/03/25 Final result [facility] 36on 02-20-2025 36 Regarding CXR result from 02/19/2025: Per Ashanti roman CNP- please let her know CXR showed extra fluid intravascularly. Continue plan with increased dose of lasix. Spoke with patient and made her aware. She verbalized understanding. Normal [facility] 37on 02-19-2025 37 *Increase lasix to 8 0mg twice daily. *Limit fluid intake to 2000ml/day. Limit sodium intake, ideally less than 2000mg/day. *Continue monitoring daily weights. *Follow-up labs in 1 week. Normal [facility] Office Visiton 02-19-2025 Follow-up visit [id number] Renee Mcneal joleen Talavera 1950 F Date Provider Department Center 02/19/2025 ALFRED CARRINGTON Family History Problem Relation Age of Onset Coronary artery disease Father Heart attack Father Family Status - Relation Status Age at Mother Father Sister Alive Level of Service:99598 [place] OFFICE/OUTPATIENT ESTABLISHED MOD MDM 30 MIN Reason for Visit and Comments: Edema [[id number]] Congestive Heart Failure [127] Normal [facility] Office Visiton 01-17-2025 Follow-up visit [id number] Renee Mcneal joleen Talavera 1950 F Date Provider Department Center 01/17/2025 ALFRED CARRINGTON Family History Problem Relation Age of Onset Coronary artery disease Father Heart attack Father Family Status - Relation Status Age at Father Level of Service:71314 [place] OFFICE/OUTPATIENT ESTABLISHED LOW MDM 20 MIN Reason for Visit and Comments: Congestive Heart Failure [127] Hypertension [451008] Normal [facility] 37on 01-03-2025 37 *Will increase lasix for the next week: - Take 2 tablets in the AM, 1 tablet in the early evening for 2 days then take 1 tablet twice daily for 5 days. Normal [facility] Office Visiton 01-03-2025 Follow-up visit [id number] Renee Mcneal 1950 F Date Provider Department Center 01/03/2025 ALFRED CARRINGTON CARD [facility] Family History Problem Relation Age of Onset Coronary artery disease Father Heart attack Father Family Status - Relation Status Age at Father Level of Service:00097 [place] OFFICE/OUTPATIENT ESTABLISHED MOD MDM 30 MIN Reason for Visit and Comments: Congestive Heart Failure [127] Normal [facility] Alanine aminotransferase [En zymatic activity/volume] in Serum or PlasmaOrdered By: Rose Ohara on 12-11-2024 ALT [Catalytic activity/Vol] Alanine aminotransferase [Enzymatic activity/volume] in Serum or Plasma 7-52 [facility] Albumin [Mass/volume] in Ser um or Plasma by Bromocresol green (BCG) dye binding methoOrdered By: Rose Ohara on 12-11-2024 Albumin BCG dye [Mass/Vol] Albumin [Mass/volume] in Serum or Plasma by Bromocresol green (BCG) dye binding metho 3.5-5.7 [facility] Alkaline phosphatase [Enzyma tic activity/volume] in Serum or PlasmaOrdered By: Rose Ohara on 12-11-2024 ALP [Catalytic activity/Vol] Alkaline phosphatase [Enzymatic activity/volume] in Serum or Plasma 34-104 [facility] Aspartate aminotransferase [ Enzymatic activity/volume] in Serum or PlasmaOrdered By: Rose Ohara on 12-11-2024 AST [Catalytic activity/Vol] Aspartate aminotransferase [Enzymatic activity/volume] in Serum or Plasma Low 13-39 [facility] Basophils Auto (Bld) [#/Vol] Ordered By: Rose Ohara on 12-11-2024 Basophils (Bld) [#/Vol] Automated basophil count 0.0-0.2 [facility] Basophils/100 WBC Auto (Bld) Ordered By: Rose Ohara on 12-11-2024 Basophils/100 WBC (Bld) Automated basophil % . [facility] Bilirubin.total [Mass/volume ] in Serum or PlasmaOrdered By: Rose Ohara on 12-11-2024 Bilirubin [Mass/Vol] Bilirubin.total [Mass/volume] in Serum or Plasma High 0.3-1.0 [facility] CBC W Auto Differential pane l (Bld)on 12-11-2024 Basophils/100 WBC Manual cnt (Syn fld) 1.1 % . [facility] Eosinophils/100 WBC Manual cnt (Syn fld) 1.7 % . [facility] Interpretation and review of laboratory results Abnormal [facility] Lymphocytes/100 WBC Manual cnt (Syn fld) 19.4 % . [facility] MCHC (RBC) [Mass/Vol] 33.1 g/dL 32.0 - 35.0 g/dL [facility] Monocytes+Macrophages /100 WBC Manual cnt (Syn fld) 8.3 % . [facility] Neutrophils/100 WBC Manual cnt (Syn fld) 69.5 % . [facility] NRBC 0.1 /100{WBC} 0 - 0.5 /100{WBC} [facility] RBC LM.HPF (Urine sed) [#/Area] 4.95 10*6/uL 3.60 - 5.00 10*6/uL [facility] WBC LM.HPF (Urine sed) [#/Area] 8.4 10*3/uL 3.8 - 11.6 10*3/uL [facility] CT abdomen pelvis w conon CT abdomen pelvis w con [facility] [place] [address] CT Scan Report Signed Patient: Tosha Mcneal MR#: [id number] : 1950 Acct:[id number] Age/Sex: 73 / F ADM Date: 12/11/24 [facility]: [facility]: Rose Ohara MD Copies to: Rose Ohara MD Ordering Provider: Rose Ohara MD Date of Service: 12/11/24 CT/CT abdomen pelvis w con: melanoma rt upper arm ([id number]) CT/CT chest w con: melanoma rt upper [...] Kruse Jr., D.O.12/11/2024 2:37 PM Dictation Location: [place] [address] Transcribed By: [facility] 12/11/24 1437 Dictated By: Miki Kruse Jr, DO 12/11/24 1433 Signed By: 12/11/24 1437 Normal [facility] Calcium [Mass/volume] in Ser um or PlasmaOrdered By: Rose Ohara on 12-11-2024 Calcium [Mass/Vol] Calcium [Mass/volume ] in Serum or Plasma 8.6-10.3 [facility] Carbon dioxide, total [Moles /volume] in Serum or PlasmaOrdered By: Rose Ohara on 12-11-2024 CO2 [Moles/Vol] Carbon dioxide, tota l [Moles/volume] in Serum or Plasma 21.0-31.0 [facility] Chloride [Moles/volume] in S marlena or PlasmaOrdered By: Rose Ohara on 12-11-2024 Chloride [Moles/Vol] Chloride [Moles/vol ume] in Serum or Plasma 98-107 [facility] Complete Blood Count Auto Di ffon 12-11-2024 Basophils (Bld) [#/Vol] 0.1 10*3/uL Normal 0.0-0.2 [facility] Comment on above: Result Comment: PERF ORMED BY: [place] [address] PATHOLOGIST ENDOCRINOLOGY SPECIALIST SANJUANITA GHOTRA M.D. Performed By: #### C BC #### [address] Eosinophils (Bld) [#/Vol] 0.1 10*3/uL Normal 0.0-0.45 [facility] Comment on above: Performed By: #### C BC #### [address] Erythrocyte distribution width (RBC) [Ratio] 15.6 % High 11.9-15.3 [facility] Comment on above: Performed By: #### C BC #### [address] Hematocrit (Bld) [Volume fraction] 44.2 % Normal 34.0-46.4 [facility] Comment on above: Performed By: #### C BC #### [address] Hemoglobin (Bld) [Mass/Vol] 14.6 g/dL Normal 11.8-15.4 [facility] Comment on above: Performed By: #### C BC #### [address] Lymphocytes (Bld) [#/Vol] 1.6 10*3/uL Normal 1.00-4.8 [facility] Comment on above: Performed By: #### C BC #### [address] [place] [address] [place] MCH (RBC) [Entitic mass] 29.6 pg Normal 24.7-34.3 [facility] Comment on above: Performed By: #### C BC #### [address] MCV (RBC) [Entitic vol] 89.3 fL Normal 80-100 [facility] Comment on above: Performed By: #### C BC #### [address] Monocytes (Bld) [#/Vol] 0.7 10*3/uL Normal 0.0-0.8 [facility] Comment on above: Performed By: #### C BC #### [address] Neutrophils (Bld) [#/Vol] 5.8 10*3/uL Normal 1.8-7.7 [facility] Comment on above: Performed By: #### C BC #### [address] Platelet mean volume (Bld) [Entitic vol] 7.8 fL Normal 6.3-10.7 [facility] Comment on above: Performed By: #### C BC #### [address] Platelets (Bld) [#/Vol] 238 10*3/uL Normal 150-450 [facility] Comment on above: Performed By: #### C BC #### [address] WBC (Bld) [#/Vol] 8.4 10*3/uL Normal 3.8-11.6 [facility] Comment on above: Performed By: #### C BC #### [place] [address] [place] Basophils/100 WBC (Bld) 1.1 % Normal . [facility] Comment on above: Performed By: #### C BC #### [address] Eosinophils/100 WBC (Bld) 1.7 % Normal . [facility] Comment on above: Performed By: #### C BC #### [address] Lymphocytes/100 WBC (Bld) 19.4 % Normal . [facility] Comment on above: Performed By: #### C BC #### [address] Mean Corpuscular HGB Conc 33.1 g/dL Normal 32.0-35.0 [facility] Comment on above: Performed By: #### C BC #### [address] Monocytes/100 WBC (Bld) 8.3 % Normal . [facility] Comment on above: Performed By: #### C BC #### [address] Neutrophils/100 WBC (Bld) 69.5 % Normal . [facility] Comment on above: Performed By: #### C BC #### [address] NRBC% 0.1 /100{WBC} Normal 0-0.5 [facility] Comment on above: Performed By: #### C BC #### [address] RBC (Bld) [#/Vol] 4.95 10*6/uL Normal 3.60-5.00 [facility] Comment on above: Performed By: #### C BC #### [address] Comprehensive Metabolic Pane heladio 12-11-2024 Albumin [Mass/Vol] 4.6 g/dL Normal 3.5-5.7 [facility] Comment on above: Performed By: #### L BRODIE, CMP ####[address] Albumin/Globulin [Mass ratio] 1.6 {ratio} Normal [facility] Comment on above: Performed By: #### L BRODIE, CMP ####[address] ALP [Catalytic activity/Vol] 54 U/L Normal 34-104 [facility] Comment on above: Performed By: #### L , CMP ####[place] [id number] [facility] ALT [Catalytic activity/Vol] 13 U/L Normal 7-52 [facility] Comment on above: Performed By: #### L , CMP ####[place] [id number] [facility] Anion gap [Moles/Vol] 16.7 mmol/L High 6.0-15.0 [facility] Comment on above: Performed By: #### L , CMP ####[place] [id number] [facility] AST [Catalytic activity/Vol] 12 U/L Low 13-39 [facility] Comment on above: Performed By: #### L , CMP ####[place] [id number] [facility] Bilirubin [Mass/Vol] 1.2 mg/dL High 0.3-1.0 [facility] Comment on above: Performed By: #### L , CMP ####[place] [id number] [facility] Calcium [Mass/Vol] 9.8 mg/dL Normal 8.6-10.3 [facility] Comment on above: Performed By: #### L , CMP ####[place] [id number] [facility] Chloride [Moles/Vol] 101 mmol/L Normal 98-107 [facility] Comment on above: Performed By: #### L , CMP ####[place] [id number] [facility] CO2 [Moles/Vol] 26.3 mmol/L Normal 21.0-31.0 [facility] Comment on above: Performed By: #### L BRODIE, CMP ####[place] [phone] [facility] CREATININE CLR CALC PHARMACY 53.08 Normal [facility] Comment on above: Performed By: #### L BRODIE, CMP ####[address] Globulin (S) [Mass/Vol] 2.9 g/dL Normal [facility] Comment on above: Performed By: #### L BRODIE, CMP ####[address] Glucose [Mass/Vol] 245 mg/dL High 70-100 [facility] Comment on above: Random Glucose Refer ence Range is dependent on time and content of last meal. Glucose of more than 200 mg/dL in a nonstressed, ambulatory subject supports the diagnosis of Diabetes Mellitus. ADA recommended reference range Result Comment: [place] om Glucose Reference Range is dependent on time and content of last meal. Glucose of more than 200 mg/dL in a nonstressed, ambulatory subject supports the diagnosis of Diabetes Mellitus. ADA recommended reference range Performed By: #### L BRODIE, CMP ####[address] Protein [Mass/Vol] 7.5 g/dL Normal 6.4-8.9 [facility] Comment on above: Performed By: #### L BRODIE, CMP ####[place] [id number] [facility] Sodium [Moles/Vol] 140 mmol/L Normal 136-145 [facility] Comment on above: Performed By: #### L BRODIE, CMP ####[address] Urea nitrogen [Mass/Vol] 21 mg/dL Normal 7-25 [facility] Comment on above: Performed By: #### L BRODIE, CMP ####[place] [id number] [facility] Creatinine [Mass/Vol] 0.96 mg/dL Normal 0.60-1.20 [facility] Comment on above: Performed By: #### L BRODIE, CMP ####[place] [id number] [place] GFR/1.73 sq M.predicted MDRD (S/P/Bld) [Vol rate/Area] mL/min/{1.73_m2} Normal [facility] Comment on above: Performed By: #### L BRODIE, CMP ####[facility] [address] [place] [address] [facility] Potassium [Moles/Vol] 4.0 mmol/L Normal 3.5-5.1 [facility] Comment on above: Performed By: #### L , CMP ####[facility] [id number] [place] [id number] [facility] Comprehensive metabolic pane heladio 12-11-2024 Creatinine (U) [Mass/Vol] 0.96 mg/dL 0.60 - 1.20 mg/dL [facility] ESTIMATED GFR mL/Min [facility] Interpretation and review of laboratory results Abnormal [facility] Potassium [Moles/Vol] 4 mmol/L 3.5 - 5.1 mmol/L [facility] Creatinine [Mass/volume] in Serum or PlasmaOrdered By: Rose Ohara on 12-11-2024 Creatinine [Mass/Vol] Creatinine [Mass/v olume] in Serum or Plasma 0.60-1.20 [facility] Eosinophils Auto (Bld) [#/Vo l]Ordered By: Rose Ohara on 12-11-2024 Eosinophils (Bld) [#/Vol] Automated eosinophil count 0.0-0.45 [facility] Eosinophils/100 WBC Auto (Bl d)Ordered By: Rose Ohara on 12-11-2024 Eosinophils/100 WBC (Bld) Automated eosinophil % . [facility] Erythrocyte distribution wid th Auto (RBC) [Ratio]Ordered By: Rose Ohara on 12-11-2024 Erythrocyte distribution width (RBC) [Ratio] Erythrocyte distribution width [Ratio] by Automated count High 11.9-15.3 [facility] Globulin Calc (S) [Mass/Vol] Ordered By: Rose Ohara on 12-11-2024 Globulin (S) [Mass/Vol] Serum globulin measurement by calculation (mass/volume) [facility] Glucose [Mass/volume] in Ser um or PlasmaOrdered By: Rose Ohara on 12-11-2024 Glucose [Mass/Vol] Glucose [Mass/volume ] in Serum or Plasma High 70-100 [facility] Comment on above: ADA recommended refe rence rangeRandom Glucose Reference Range is dependent on time and content of last meal. Glucose of more than 200 mg/dL in a nonstressed, ambulatory subject supports the diagnosis of Diabetes Mellitus. Hematocrit Auto (Bld) [Volum e fraction]Ordered By: Rose Ohara on 12-11-2024 Hematocrit (Bld) [Volume fraction] Hematocrit [Volume Fraction] of Blood by Automated count 34.0-46.4 [facility] Hemoglobin [Mass/volume] in BloodOrdered By: Rose Ohara on 12-11-2024 Hemoglobin (Bld) [Mass/Vol] Hemoglobin [Mass/volume] in Blood 11.8-15.4 [facility] LDH Lactate Dehydrogenaseon 12-11-2024 LDH LACTATE DEHYDROGENASE 151 U/L Normal 140-271 [facility] Comment on above: Result Comment: PERF ORMED BY: [facility] [address] [place] [id number] PATHOLOGIST ENDOCRINOLOGY SPECIALIST SANJUANITA GHOTRA M.D. Performed By: #### L , [facility] ####[facility] [address] [place] [address] [facility] Lactate dehydrogenase [Enzym atic activity/volume] in Serum or Plasma by Lactate to pyOrdered By: Rose Ohara on 12-11-2024 LDH Lactate to pyruvate reaction [Catalytic activity/Vol] Lactate dehydrogenase [Enzymatic activity/volume] in Serum or Plasma by Lactate to py 140-271 [facility] Leukocytes [#/volume] correc jin for nucleated erythrocytes in Blood by Automated counOrdered By: Rose Ohara on 12-11-2024 WBC corrected for nucl RBC Auto (Bld) [#/Vol] Leukocytes [#/volume] corrected for nucleated erythrocytes in Blood by Automated coun 3.8-11.6 [facility] Lymphocytes Auto (Bld) [#/Vo l]Ordered By: Rose Ohara on 12-11-2024 Lymphocytes (Bld) [#/Vol] Lymphocytes [#/volume] in Blood by Automated count 1.00-4.8 [facility] Lymphocytes/100 WBC Auto (Bl d)Ordered By: Rose Ohara on 12-11-2024 Lymphocytes/100 WBC (Bld) Lymphocytes/100 leukocytes in Blood by Automated count . [facility] MCH Auto (RBC) [Entitic mass ]Ordered By: Rose Ohara on 02-04-2025 MCH (RBC) [Entitic mass] MCH [Entitic mass] by Automated count 24.7-34.3 [facility] MCHC Auto (RBC) [Mass/Vol]Or dered By: Rose Ohara on 12-11-2024 MCHC (RBC) [Mass/Vol] MCHC [Mass/volume] by Automated count 32.0-35.0 [facility] MCV Auto (RBC) [Entitic vol] Ordered By: Rose Ohara on 12-11-2024 MCV (RBC) [Entitic vol] MCV [Entitic volume] by Automated count 80-100 [facility] Monocytes Auto (Bld) [#/Vol] Ordered By: Rose Ohara on 12-11-2024 Monocytes (Bld) [#/Vol] Automated blood monocyte count 0.0-0.8 [facility] Monocytes/100 WBC Auto (Bld) Ordered By: Rose Ohara on 12-11-2024 Monocytes/100 WBC (Bld) Automated monocyte % . [facility] Neutrophils Auto (Bld) [#/Vo l]Ordered By: Rose Ohara on 12-11-2024 Neutrophils (Bld) [#/Vol] Neutrophils [#/volume] in Blood by Automated count 1.8-7.7 [facility] Neutrophils/100 WBC Auto (Bl d)Ordered By: Rose Ohara on 12-11-2024 Neutrophils/100 WBC (Bld) Automated neutrophil % . [facility] No Panel Informationon 12-11 [facility] No Panel InformationOrdered By: Rose Ohara on 12-11-2024 Estimated GFR (CKD-EPI) > 60.0 mL/Min [facility] Creatinine Clearance (Chem 53.08 [facility] Nucleated erythrocytes [Pres ence] in Blood by Automated countOrdered By: Rose Ohara on 12-11-2024 Nucleated RBC Auto Ql (Bld) Nucleated erythrocytes [Presence] in Blood by Automated count 0-0.5 [facility] Platelet mean volume Auto (B ld) [Entitic vol]Ordered By: Rose Ohara on 12-11-2024 Platelet mean volume (Bld) [Entitic vol] Platelet mean volume [Entitic volume] in Blood by Automated count 6.3-10.7 [facility] Platelets Auto (Bld) [#/Vol] Ordered By: Rose Ohara on 12-11-2024 Platelets (Bld) [#/Vol] Platelets [#/volume] in Blood by Automated count 150-450 [facility] Potassium [Moles/volume] in Serum or PlasmaOrdered By: Rose Ohara on 12-11-2024 Potassium [Moles/Vol] Potassium [Moles/v olume] in Serum or Plasma 3.5-5.1 [facility] Protein [Mass/volume] in Ser um or PlasmaOrdered By: Rose Ohara on 12-11-2024 Protein [Mass/Vol] Protein [Mass/volume ] in Serum or Plasma 6.4-8.9 [facility] RBC Auto (Bld) [#/Vol]Ordere d By: Rose Ohara on 12-11-2024 RBC (Bld) [#/Vol] Erythrocytes [#/volu me] in Blood by Automated count 3.60-5.00 [facility] Serum or plasma albumin/glob ulin mass ratioOrdered By: Rose Ohara on 12-11-2024 Albumin/Globulin [Mass ratio] Serum or plasma albumin/globulin mass ratio [facility] Serum or plasma anion gap de terminationOrdered By: Rose Ohara on 12-11-2024 Anion gap [Moles/Vol] Serum or plasma an ion gap determination High 6.0-15.0 [facility] Sodium [Moles/volume] in Ser um or PlasmaOrdered By: Rose Ohara on 12-11-2024 Sodium [Moles/Vol] Sodium [Moles/volume ] in Serum or Plasma 136-145 [facility] Urea nitrogen [Mass/volume] in Serum or PlasmaOrdered By: Rose Ohara on 12-11-2024 Urea nitrogen [Mass/Vol] Urea nitrogen [Mass/volume] in Serum or Plasma 7-25 [facility] WBC Auto (Bld) [#/Vol]Ordere d By: Rose Ohara on 12-11-2024 WBC (Bld) [#/Vol] Leukocytes [#/volume ] in Blood by Automated count 3.8-11.6 [facility] HGB A1C (GLYCO-HGB)on 2023 Glucose [Mass/Vol] 197 mg/dL Normal [facility] Comment on above: Performed By: #### 3 016-3, FELIX1C #### [facility] ([id number]) [address] [address] HbA1c (Bld) [Mass fraction] 8.5 % High 4.4-5.6 [facility] Comment on above: Result Comment: NOTE ADA Guidelines Result HgbA1c Normal : less than 5.7 % Prediabetes : 5.7 % to 6.4 % Diabetes : > 6.4 % Use with caution in patients with abnormal hemoglobin variants as the half-life of red blood cells and in vivo glycation rates are affected. Performed By: #### 3 016-3, PRANAY #### [facility] ([id number]) [address] [address] MICROALBUMIN - ALBUMIN:CREAT ININE URINE RATIOon 07-16-2024 ALB/CREAT RATIO NOT CALCULATED Normal 0.0-30.0 [facility] Comment on above: Result Comment: Result for Albumin/Creatinine Ratio cannot be reliably calculated because urine albumin and or urine creatinine is below the detection limit of the assay. Performed By: #### Andres FREY, 39477-3, 47895-6, 2777-1, 3084-1, 2731-8, 16142-3 #### [facility] ([id number]) [address] [address] Albumin DL <= 20 mg/L (U) [Mass/Vol] mg/dL Normal 0.0-1.9 [facility] Comment on above: Performed By: #### Andres FREY, 58418-5, 29716-0, 2777-1, 3084-1, 2731-8, 13884-6 #### [facility] ([id number]) [address] [address] URINE CREAT 74.02 mg/dL Normal [facility] Comment on above: Performed By: #### C MP, 06538-2, 89340-1, 7-1, 3084-1, 2731-8, 97111-1 #### [facility] ([id number]) [address] [place] [address] TSH Qnon 07-16-2024 TSH 1.00 uIU/mL Normal 0.49-4.67 [facility] Comment on above: Performed By: #### 3 016-3, HA1C #### [facility] ([id number]) [address] [facility] [address], [address] [place] [address] MAMM SCREENING BILATERAL W C analytical tech 06-07-2024 MAMM SCREENING BILATERAL W CAD MAMM [...] 1:35 PM 1 a FU ACR Normal [facility] COMPREHENSIVE METABOLIC PANE Heladio 01-11-2024 Albumin [Mass/Vol] 4.2 g/dL Normal 3.2-5.3 [facility] Comment on above: Performed By: #### C MP, 62989-7, 39826-6, 7-1, 3084-1, 2731-8, 41185-5 #### [facility] ([id number]) [address] [facility] [address], [address] [place] [address] ALP [Catalytic activity/Vol] 74 U/L Normal 39-130 [facility] Comment on above: Performed By: #### C MP, 20176-6, 66494-1, 2777-1, 3084-1, 2731-8, 40588-0 #### [facility] ([id number]) [address], [address] [place] [address] ALT [Catalytic activity/Vol] 16 U/L Normal 0-31 [facility] Comment on above: Performed By: #### C MP, 45704-2, 73323-6, 2777-1, 3084-1, 2731-8, 98499-9 #### [facility] ([id number]) [address], [address] [place] [address] Anion gap [Moles/Vol] 11 mmol/L Normal 5-15 [facility] Comment on above: Performed By: #### C MP, 18499-2, 19475-4, 7-1, 3084-1, 2731-8, 85382-8 #### [facility] ([id number]) [address], [address] [place] [address] AST [Catalytic activity/Vol] 13 U/L Normal 0-41 [facility] Comment on above: Performed By: #### C MP, 63113-6, 19649-1, 2777-1, 3084-1, 2731-8, 41208-0 #### [facility] ([id number]) [address], [address] [place] [address] Bilirubin [Mass/Vol] 0.9 mg/dL Normal 0.3-1.2 [facility] Comment on above: Performed By: #### C MP, 10944-7, 97947-7, 2777-1, 3084-1, 2731-8, 92615-8 #### [facility] ([id number]) [address], [address] [place] [address] Calcium [Mass/Vol] 9.7 mg/dL Normal 8.5-10.5 [facility] Comment on above: Performed By: #### C SHANTE, 36908-3, 69995-9, 2777-1, 3084-1, 2731-8, 06053-9 #### [facility] ([id number]) [address], [address] [place] [address] Chloride [Moles/Vol] 106 mmol/L Normal 98-109 [facility] Comment on above: Performed By: #### C SHANTE, 11649-1, 24002-1, 2777-1, 3084-1, 2731-8, 78289-4 #### [facility] ([id number]) [address], [address] [place] [address] CO2 [Moles/Vol] 24 mmol/L Normal 22-32 [facility] Comment on above: Performed By: #### C SHANTE, 75934-1, 56458-3, 7-1, 3084-1, 2731-8, 77734-3 #### [facility] ([id number]) [address], [address] [place] [address] Creatinine [Mass/Vol] 0.84 mg/dL Normal 0.40-1.00 [facility] Comment on above: Result Comment: METH OD TRACEABLE TO IDMS STANDARD Performed By: #### C SHANTE, 47569-2, 70571-6, 7-1, 3084-1, 2731-8, 36621-3 #### [facility] ([id number]) [address], [address] [place] [address] GFR/1.73 sq M.predicted among non-blacks MDRD (S/P/Bld) [Vol rate/Area] 73 mL/min/{1.73_m2} Normal >59 [facility] Comment on above: Result Comment: Reported eGFR is based on the CKD-EPI 2020 equation that does not use a race coefficient. Performed By: #### C SHANTE, 46438-7, 09174-8, 2777-1, 3084-1, 2731-8, 96131-1 #### [facility] ([id number]) [address], [address] [place] [address] Glucose [Mass/Vol] 132 mg/dL High 65-99 [facility] Comment on above: Performed By: #### C SHANTE, 22346-3, 49146-8, 2777-1, 3084-1, 2731-8, 69811-3 #### [facility] ([id number]) [address], [address] [place] [address] Potassium [Moles/Vol] 4.9 mmol/L Normal 3.5-5.0 [facility] Comment on above: Performed By: #### C SHANTE, 46980-4, 74861-3, 7-1, 3084-1, 2731-8, 85935-5 #### [facility] ([id number]) [address], [address] [place] [address] Protein [Mass/Vol] 6.9 g/dL Normal 6.0-8.0 [facility] Comment on above: Performed By: #### C SHANTE, 90242-5, 25357-6, 7-1, 3084-1, 2731-8, 26363-0 #### [facility] ([id number]) [address], [address] [place] [address] Sodium [Moles/Vol] 141 mmol/L Normal 134-146 [facility] Comment on above: Performed By: #### C SHANTE, 11257-5, 89081-0, 2777-1, 3084-1, 2731-8, 93295-0 #### [facility] ([id number]) [address], [address] [place] [address] Urea nitrogen [Mass/Vol] 21 mg/dL Normal 5-27 [facility] Comment on above: Performed By: #### C , 38278-6, 24097-5, 2777-1, 3084-1, 1931-8, 31534-7 #### [facility] ([id number]) [address] [facility], [address] [place] [address] Comprehensive metabolic pane [facility] 01-11-2024 Albumin [Mass/Vol] 4.2 g/dL 3.2 - 5.3 g/dL [facility] ALP [Catalytic activity/Vol] 74 U/L 39 - 130 U/L [facility] ALT No additional P-5'-P [Catalytic activity/Vol] 16 U/L 0 - 31 U/L [facility] Anion gap [Moles/Vol] 11 mmol/L 5 - 15 mmol/L [facility] AST [Catalytic activity/Vol] 13 U/L 0 - 41 U/L [facility] Bilirubin [Mass/Vol] 0.9 mg/dL 0.3 - 1 .2 mg/dL [facility] Calcium [Mass/Vol] 9.7 mg/dL 8.5 - 10. 5 mg/dL [facility] Chloride [Moles/Vol] 106 mmol/L 98 - 10 9 mmol/L [facility] CO2 [Moles/Vol] 24 mmol/L 22 - 32 mmol/L [facility] Creatinine [Mass/Vol] 0.84 mg/dL 0.40 - 1.00 mg/dL [facility] Comment on above: METHOD TRACEABLE TO IDMI STANDARD eGFR (CKD-EPI)non-race dependent 73 - PINF [facility] Comment on above: Reported eGFR is based on the CKD-EPI 2020 equation that does not use a race coefficient. Glucose [Mass/Vol] 132 mg/dL High 65 - 99 mg/dL [facility] Potassium [Moles/Vol] 4.9 mmol/L 3.5 - 5.0 mmol/L [facility] Protein [Mass/Vol] 6.9 g/dL 6.0 - 8.0 g/dL [facility] Sodium [Moles/Vol] 141 mmol/L 134 - 146 mmol/L [facility] Urea nitrogen [Mass/Vol] 21 mg/dL 5 - 27 mg/dL [facility] HGB A1C (GLYCO-HGB)on 2023 Glucose [Mass/Vol] 171 mg/dL Normal [facility] Comment on above: Performed By: #### Andres , 41367-8, 66437-7, 2777-1, 3084-1, 2731-8, 85847-6 #### [facility] ([id number]) [address] [facility], [address] [place] [address] HbA1c (Bld) [Mass fraction] 7.6 % High 4.4-5.6 [facility] Comment on above: Result Comment: NOTE ADA Guidelines Result HgbA1c Normal : less than 5.7 % Prediabetes : 5.7 % to 6.4 % Diabetes : > 6.4 % Use with caution in patients with abnormal hemoglobin variants as the half-life of red blood cells and in vivo glycation rates are affected. Performed By: #### Andres , 73508-5, 60053-5, 2777-1, 3084-1, 2731-8, 21192-2 #### [facility] ([id number]) [address] [place] [address], [address] [place] [address] Hemoglobin A1con 01-11-2024 Average glucose Estimated from glycated hemoglobin (Bld) [Mass/Vol] 171 mg/dL [facility] HbA1c (Bld) [Mass fraction] 7.6 % High 4.4 - 5.6 % [facility] Comment on above: NOTE ADA Guidelines Result HgbA1c Normal : less than 5.7 % Prediabetes : 5.7 % to 6.4 % Diabetes : > 6.4 % Use with caution in patients with abnormal hemoglobin variants as the half-life of red blood cells and in vivo glycation rates are affected. Interpretation and review of laboratory results Abnormal [facility] Lipid 1996 panelon Cholesterol [Mass/Vol] 104 mg/dL Low 150 - 200 mg/dL [facility] Cholesterol in HDL [Mass/Vol] 46 mg/dL 39 - PINF mg/dL [facility] Comment on above: HDL <40 mg/dL - High Risk HDL > or = 40mg/dL- Desirable HDL >60 mg/dL - Negative Risk Cholesterol in LDL [Mass/Vol] 19 mg/dL NINF - 130 mg/dL [facility] Comment on above: LDL <100 mg/dL - Desirable LDL >160 mg/dL - High Risk Cholesterol in VLDL [Mass/Vol] 39 mg/dL High 0 - 30 mg/dL [facility] Cholesterol.total/Cho lesterol in HDL [Mass ratio] 2.3 {ratio} 1.0 - 5.0 [facility] Triglyceride [Mass/Vol] 194 mg/dL High 27 - 150 mg/dL [facility] Cholesterol [Mass/Vol] 104 mg/dL Low 150-200 [facility] Comment on above: Performed By: #### C SHANTE, 51522-8, 53791-9, 7-1, 3084-1, 2731-8, 91116-3 #### [facility] ([id number]) [address] [place] [address], [address] [place] [address] Cholesterol in HDL [Mass/Vol] 46 mg/dL Normal >39 [facility] Comment on above: Result Comment: HDL <40 mg/dL - High Risk HDL > or = 40mg/dL- Desirable HDL >60 mg/dL - Negative Risk Performed By: #### C SHANTE, 73438-0, 76330-7, 2777-1, 3084-1, 2731-8, 09038-4 #### [facility] ([id number]) [address] [address] Cholesterol in LDL [Mass/Vol] 19 mg/dL Normal <130 [facility] Comment on above: Result Comment: LDL <100 mg/dL - Desirable LDL >160 mg/dL - High Risk Performed By: #### C SHANTE, 12467-2, 47926-9, 2777-1, 3084-1, 2731-8, 73498-5 #### [facility] ([id number]) [address] [address] Cholesterol in VLDL [Mass/Vol] 39 mg/dL High 0-30 [facility] Comment on above: Performed By: #### C SHANTE, 02302-7, 49031-2, 2777-1, 3084-1, 2731-8, 88196-2 #### [facility] ([id number]) [address] [address] CHOLESTEROL:HDL 2.3 Normal 1.0-5.0 [facility] Comment on above: Performed By: #### C SHANTE, 64184-0, 17883-3, 7-1, 3084-1, 2731-8, 64379-3 #### [facility] ([id number]) [address] [address] Triglyceride [Mass/Vol] 194 mg/dL High 27-150 [facility] Comment on above: Performed By: #### Andres FREY, 30047-2, 96690-6, 2777-1, 3084-1, 2731-8, 02834-4 #### [facility] ([id number]) [address] [place] [address] MAGNESIUMon 01-11-2024 Magnesium [Mass/Vol] 1.7 mg/dL Low 1.8-2.6 [facility] Comment on above: Performed By: #### C SHANTE, 52118-3, 80068-5, 2777-1, 3084-1, 2731-8, 76409-1 #### [facility] ([id number]) [address] [address] [place] [address] Magnesiumon 01-11-2024 Magnesium [Mass/Vol] 1.7 mg/dL Low 1.8 - 2 .6 mg/dL [facility] No Panel Informationon 01-10 Interpretation and review of laboratory results Abnormal [facility] PHOSPHORUSon 01-11-2024 Phosphate [Mass/Vol] 3.7 mg/dL Normal 2.4-4.9 [facility] Comment on above: Performed By: #### C SHANTE, 63218-2, 54637-2, 2777-1, 3084-1, 2731-8, 48195-5 #### [facility] ([id number]) [address] [facility] [place] [address] Parathyrin.intact [Mass/Vol] on 01-11-2024 [facility] PTH INTACT 61 pg/mL Normal 12-88 [facility] Comment on above: Performed By: #### C SHANET, 19862-7, 97881-2, 2777-1, 3084-1, 2731-8, 27451-3 #### [facility] ([id number]) [address] [facility] [facility] [place] [address] Parathyroid Hormone, intacto n 01-11-2024 Parathyrin.intact [Mass/Vol] 61 pg/mL 12 - 88 pg/mL [facility] Phosphoruson 01-11-2024 Phosphate [Mass/Vol] 3.7 mg/dL 2.4 - 4 .9 mg/dL [facility] URIC ACIDon 01-11-2024 Urate [Mass/Vol] 6.6 mg/dL Normal 2.6-7.2 [facility] Comment on above: Performed By: #### C SHANTE, 30188-2, 95109-2, 2776-11, 3083-, 2731-8, 72452-9 #### [facility] ([id number]) [address] [facility] [address] [place] [address] Uric acidon 01-11-2024 Urate [Mass/Vol] 6.6 mg/dL 2.6 - 7.2 mg/dL [facility] Vitamin D 25 hydroxyon 01-10 Vitamin D+Metabolites [Mass/Vol] 11.1 ng/mL Low 30 - 100 ng/mL [facility] Comment on above: Vitamin D status 25 [place] Vitamin D Deficiency <20 ng/mL Insufficiency 20-29 ng/mL Sufficiency 30-100 ng/mL Toxicity >100 ng/mL NOTE: A pediatric reference range has not been established by the peer tutor of this kit. The [employer] recommends a Vitamin D level of = or >20ng/mL in infants and children. Vitamin D+Metabolites [Mass/ Vol]on 01-11-2024 Interpretation and review of laboratory results Abnormal [facility] VITAMIN D 25 HYD TOT 11.1 ng/mL Low 30-100 [facility] Comment on above: Result Comment: Vitamin D status 25 [place] Vitamin D Deficiency <20 ng/mL Insufficiency 20-29 ng/mL Sufficiency 30-100 ng/mL Toxicity >100 ng/mL NOTE: A pediatric reference range has not been established by the peer tutor of this kit. The [employer] recommends a Vitamin D level of = or >20ng/mL in infants and children. Performed By: #### C SHANTE, 79041-6, 28466-7, 2776-11, 3083-, 2731-8, 22941-5 #### [facility] ([id number]) [address] [facility], [address] [place] [address] Alanine aminotransferase [En zymatic activity/volume] in Serum or PlasmaOrdered By: Farhana Sotomayor on 12-13-2023 ALT [Catalytic activity/Vol] 12 U/L 7-52 [facility] Albumin [Mass/volume] in Ser um or Plasma by Bromocresol green (BCG) dye binding methoOrdered By: Farhana Sotomayor on 12-13-2023 Albumin BCG dye [Mass/Vol] 4.0 g/dL 3.5-5.7 [facility] Alkaline phosphatase [Enzyma tic activity/volume] in Serum or PlasmaOrdered By: Farhana Sotomayor on 12-13-2023 ALP [Catalytic activity/Vol] 55 U/L 34-104 [facility] Aspartate aminotransferase [ Enzymatic activity/volume] in Serum or PlasmaOrdered By: Farhana Sotomayor on 12-13-2023 AST [Catalytic activity/Vol] 11 U/L 13-39 [facility] Basophils Auto (Bld) [#/Vol] Ordered By: Farhana Sotomayor on 12-13-2023 Basophils (Bld) [#/Vol] 0.1 10*3/uL 0.0-0.2 [facility] Basophils/100 WBC Auto (Bld) Ordered By: Farhana Sotomayor on 12-13-2023 Basophils/100 WBC (Bld) 1.2 % . [facility] Bilirubin.total [Mass/volume ] in Serum or PlasmaOrdered By: Farhana Sotomayor on 12-13-2023 Bilirubin [Mass/Vol] 0.8 mg/dL 0.3-1.[address] [facility] Calcium [Mass/volume] in Ser um or PlasmaOrdered By: Farhana Sotomayor on 12-13-2023 Calcium [Mass/Vol] 9.3 mg/dL 8.6-10.3 [facility] Carbon dioxide, total [Moles /volume] in Serum or PlasmaOrdered By: Farhana Sotomayor on 12-13-2023 CO2 [Moles/Vol] 26.9 mmol/L 21.0-31.0 [facility] Chloride [Moles/volume] in S marlena or PlasmaOrdered By: Farhana Sotomayor on 12-13-2023 Chloride [Moles/Vol] 103 mmol/L 98-[address] [facility] Creatinine [Mass/volume] in Serum or PlasmaOrdered By: Farhana Sotomayor on 12-13-2023 Creatinine [Mass/Vol] 1.05 mg/dL 0.60-1.20 [facility] Eosinophils Auto (Bld) [#/Vo l]Ordered By: Farhana Sotomayor on 12-13-2023 Eosinophils (Bld) [#/Vol] 0.2 10*3/uL 0.0-0.45 [facility] Eosinophils/100 WBC Auto (Bl d)Ordered By: Farhana Sotomayor on 12-13-2023 Eosinophils/100 WBC (Bld) 2.4 % . [facility] Erythrocyte distribution wid th Auto (RBC) [Ratio]Ordered By: Farhana Sotomayor on 12-13-2023 Erythrocyte distribution width (RBC) [Ratio] 16.0 % 11.9-15.3 [facility] Globulin Calc (S) [Mass/Vol] Ordered By: Farhana Sotomayor on 12-13-2023 Globulin (S) [Mass/Vol] 2.7 g/dL [facility] Glucose [Mass/volume] in Ser um [...] Hematocrit (Bld) [Volume fraction] 35.5 % 34.0-46.4 [facility] Hemoglobin [Mass/volume] in BloodOrdered By: Farhana Sotomayor on 12-13-2023 Hemoglobin (Bld) [Mass/Vol] 11.5 g/dL 11.8-15.4 [facility] Lactate dehydrogenase [Enzym atic activity/volume] in Serum or Plasma by Lactate to pyOrdered By: Farhana Sotomayor on 12-13-2023 LDH Lactate to pyruvate reaction [Catalytic activity/Vol] 118 U/L 140-271 [facility] Leukocytes [#/volume] correc jin for nucleated erythrocytes in Blood by Automated counOrdered By: Farhana Sotomayor on 12-13-2023 WBC corrected for nucl RBC Auto (Bld) [#/Vol] 7.6 10*3/uL 3.8-11.6 [facility] Lymphocytes Auto (Bld) [#/Vo l]Ordered By: Farhana Sotomayor on 12-13-2023 Lymphocytes (Bld) [#/Vol] 1.9 10*3/uL 1.00-4.8 [facility] Lymphocytes/100 WBC Auto (Bl d)Ordered By: Farhana Sotomayor on 12-13-2023 Lymphocytes/100 WBC (Bld) 25.0 % . [facility] MCH Auto (RBC) [Entitic mass ]Ordered By: Farhana Sotomayor on 12-13-2023 MCH (RBC) [Entitic mass] 28.3 pg 24.7-34.3 [facility] MCHC Auto (RBC) [Mass/Vol]Or dered By: Farhana Sotomayor on 12-13-2023 MCHC (RBC) [Mass/Vol] 32.5 g/dL 32.0-35.0 [facility] MCV Auto (RBC) [Entitic vol] Ordered By: Farhana Sotomayor on 12-13-2023 MCV (RBC) [Entitic vol] 87.2 fL 80-100 [facility] Magnesium [Mass/volume] in S marlena or PlasmaOrdered By: Zabrina Simon on 12-13-2023 Magnesium [Mass/Vol] 1.5 mg/dL 1.9-2.[address] [facility] Monocytes Auto (Bld) [#/Vol] Ordered By: Farhana Sotomayor on 12-13-2023 Monocytes (Bld) [#/Vol] 0.6 10*3/uL 0.0-0.8 [facility] Monocytes/100 WBC Auto (Bld) Ordered By: Farhana Sotomayor on 12-13-2023 Monocytes/100 WBC (Bld) 8.3 % . [facility] Natriuretic peptide B [Mass/ Vol]Ordered By: Zabrina Simon on 12-13-2023 Natriuretic peptide B (Bld) [Mass/Vol] 70.0 pg/mL 5-100 [facility] Neutrophils Auto (Bld) [#/Vo l]Ordered By: Farhana Sotomayor on 12-13-2023 Neutrophils (Bld) [#/Vol] 4.8 10*3/uL 1.8-7.7 [facility] Neutrophils/100 WBC Auto (Bl d)Ordered By: Farhana Sotomayor on 12-13-2023 Neutrophils/100 WBC (Bld) 63.1 % . [facility] No Panel InformationOrdered By: Farhana Sotomayor on 12-13-2023 Estimated GFR (CKD-EPI) 55.755 mL/Min [facility] Creatinine Clearance (Chem 51.93 [facility] Nucleated erythrocytes [Pres ence] in Blood by Automated countOrdered By: Farhana Sotomayor on 12-13-2023 Nucleated RBC Auto Ql (Bld) 0.0 /100{WBC} 0-0.5 [facility] Platelet mean volume Auto (B ld) [Entitic vol]Ordered By: Farhana Sotomayor on 12-13-2023 Platelet mean volume (Bld) [Entitic vol] 7.5 fL 6.3-10.7 [facility] Platelets Auto (Bld) [#/Vol] Ordered By: Farhana Sotomayor on 12-13-2023 Platelets (Bld) [#/Vol] 220 10*3/uL 150-450 [facility] Potassium [Moles/volume] in Serum or PlasmaOrdered By: Farhana Sotomayor on 12-13-2023 Potassium [Moles/Vol] 5.3 mmol/L 3.5-5.1 [facility] Protein [Mass/volume] in Ser um or PlasmaOrdered By: Farhana Sotomayor on 12-13-2023 Protein [Mass/Vol] 6.7 g/dL 6.4-8.9 [facility] RBC Auto (Bld) [#/Vol]Ordere d By: Farhana Sotomayor on 12-13-2023 RBC (Bld) [#/Vol] 4.07 10*6/uL 3.60-5.00 [facility] Serum or plasma albumin/glob ulin mass ratioOrdered By: Farhana Sotomayor on 12-13-2023 Albumin/Globulin [Mass ratio] 1.5 {ratio} [facility] Serum or plasma anion gap de terminationOrdered By: Farhana Sotomayor on 12-13-2023 Anion gap [Moles/Vol] 14.4 mmol/L 6.0-15.0 [facility] Sodium [Moles/volume] in Ser um or PlasmaOrdered By: Farhana Sotomayor on 12-13-2023 Sodium [Moles/Vol] 139 mmol/L 136-145 [facility] Urea nitrogen [Mass/volume] in Serum or PlasmaOrdered By: Farhana Sotomayor on 12-13-2023 Urea nitrogen [Mass/Vol] 27 mg/dL 7-25 [facility] WBC Auto (Bld) [#/Vol]Ordere d By: Farhana Sotomayor on 12-13-2023 WBC (Bld) [#/Vol] 7.6 10*3/uL 3.8-11.6 [facility] Operative Reporton Operative Report Indication for Surge ry Wound dehiscence left total knee Preoperative Diagnosis Wound dehiscence left total knee Postoperative Diagnosis Wound dehiscence left total knee Operation Debridement Lower Extremity, INCISION AND DRAINAGE LEFT KNEE, SECONDARY CLOSURE OF WOUND DEHISENCE, PREVENNA PLACMENT, Left, Knee Surgeon(s) Ronaldo JUAREZ, Aly Guzman (Surgeon - Primary) Reticle Printer Miguel HART, Dee Dee Hays (Frit Maker) Anesthesia General Mile JUAREZ, Hank Richard (Member Of Technical Staff) Joleen Lala (Provider) Estimated Blood Loss 10 [...] stable condition. Will be discharged home with [place] and Keflex 500 mg p.o. 3 times daily x 7 days. Return the office in 1 week for wound check. Tourniquet Time NA Sponge/Needle Count correct Fluid Count as per chart Catheters, Drains, Tubes Prevena Electronically signed by Aly Higgins MD 11/09/23 17:29 EST Normal [facility] POC Glucose Randomon 024 Glucose [Mass/Vol] 118 mg/dL High 70-99 [facility] Comment on above: Performed By: #### C [id number] #### [address] [address] Glucose [Mass/Vol] 137 mg/dL High 70-99 [facility] Comment on above: Performed By: #### C [id number] #### [address] [address] Glucose [Mass/Vol] 138 mg/dL High 70-99 [facility] Comment on above: Performed By: #### C [id number] #### LOCATED WITHIN [facility] [address] [place] [address] Hgb/Hcton 10-04-2023 Hematocrit (Bld) [Volume fraction] 35.2 % Low 36.3-47.1 [facility] Comment on above: Performed By: #### H H #### [address] [place], [place] [id number] Program Analyst: Alexey Rob MD Hemoglobin (Bld) [Mass/Vol] 11.5 g/dL Low 11.9-15.1 [facility] Comment on above: Performed By: #### H H #### [address] [place] [address] Program Analyst: Alexey Rob MD OPERATIVE REPORTon 3 OPERATIVE REPORT [address] [address] OPERATIVE REPORT PATIENT NAME: TOSHA MCNEAL : 1950 [facility] REC NO: [id number] ROOM: 0331 ACCOUNT NO: [id number] ADMIT DATE: 10/03/2023 PROVIDER: lAy Higgins DATE OF PROCEDURE: 10/03/2023 PREOPERATIVE DIAGNOSIS: [...] to go with a 32-mm patellar dome. Ora holes were placed. Knee was then cleansed [...] layer was then closed with #1 Vicryl [id number] sutures over two Hemovac drains. Vancomycin powder [...] a stable condition. ALY HIGGINS PH/[id number]_T Doc#: [id number] CC: Normal [facility] MRSA, DNA, Nasalon 3 MRSA, DNA, Nasal Negative Normal NEG [facility] Comment on above: Result Comment: NEGA TIVE: MRSA DNA not detected by nucleic acid amplification. Results should be used as an adjunct to nosocomial control efforts to identify patients needing enhanced precautions. The test is not intended to identify patients with staphylococcal infections. Results should not be used to guide or monitor treatment for MRSA infections. Performed By: #### M RSANO #### [facility] [address] [place], [place] [id number] Program Analyst: Jose Miguel Davis MD [facility] [address] [place] [address] Program Analyst: Alexey Rob MD Basic Metabolic Profon 09-08 Anion gap [Moles/Vol] 12 mmol/L Normal 9-17 [facility] Comment on above: Performed By: #### B SHANTE, CDP #### [facility] [address] [place], [place] [id number] Program Analyst: Alexey Rob MD BUN/CRE Ratio 35 High 9-20 [facility] Comment on above: Performed By: #### B MP, CDP #### [facility] [address] [place] [address] Dr. [place], [place] [id number] Program Analyst: Alexey Rob MD Calcium [Mass/Vol] 9.9 mg/dL Normal 8.6-10.4 [facility] Comment on above: Performed By: #### B MP, CDP #### [facility] [address] [place] [address] Program Analyst: Alexey Rob MD Chloride [Moles/Vol] 99 mmol/L Normal 98-107 [facility] Comment on above: Performed By: #### B MP, CDP #### [facility] [address] [place], [place] [id number] Program Analyst: Alexey Rob MD CO2 [Moles/Vol] 27 mmol/L Normal 20-31 [facility] Comment on above: Performed By: #### B SHANTE, CDP #### [facility] [address] [place] [address] Program Analyst: Alexey Rob MD Creatinine [Mass/Vol] 1.0 mg/dL High 0.5-0.9 [facility] Comment on above: Performed By: #### B SHANTE, CDP #### [facility] [address] [place] [address] Program Analyst: Alexey Rob MD GFR/1.73 sq M.predicted among non-blacks MDRD (S/P/Bld) [Vol rate/Area] 59 mL/min/{1.73_m2} Low >60 [facility] Comment on above: Result Comment: These results [...] Performed By: #### B SHANTE, CDP #### [facility] [address] [place] [address] Program Analyst: Alexey Rob MD Glucose [Mass/Vol] 126 mg/dL High 70-99 [facility] Comment on above: Performed By: #### B SHANTE, CDP #### [facility] [address] [place] [address] Program Analyst: Alexey Rob MD Potassium [Moles/Vol] 4.9 mmol/L Normal 3.7-5.3 [facility] Comment on above: Performed By: #### B SHANTE, CDP #### [facility] [address] [place] [address] Program Analyst: Alexey Rob MD Sodium [Moles/Vol] 138 mmol/L Normal 135-144 [facility] Comment on above: Performed By: #### B SHANTE, CDP #### [facility] [address] [place], [place] [address] Program Analyst: Alexey Rob MD Urea nitrogen [Mass/Vol] 35 mg/dL High 8-23 [facility] Comment on above: Performed By: #### B SHANTE, CDP #### [facility] [address] [place], [facility] Program Analyst: Alexey Rob MD CBC with Diffon 09-08-2023 Abs. Basophil 0.07 k/uL Normal 0.00-0.20 [facility] Comment on above: Performed By: #### B SHANTE, CDP #### [facility] [address] [place], [facility] Program Analyst: Alexey Rob MD Abs.Imm.Granulocyte 0.04 k/uL Normal 0.00-0.30 [facility] Comment on above: Performed By: #### B SHANTE, CDP #### [facility] [address] [place], [place] [id number] Program Analyst: Alexey Rob MD Abs.Neutrophil (Seg) 5.10 k/uL Normal 1.50-8.10 [facility] Comment on above: Performed By: #### B SHANTE, CDP #### [facility] [address] [place], [facility] Program Analyst: Alexey Rob MD Basophils/100 WBC (Bld) 1 % Normal 0-2 [facility] Comment on above: Performed By: #### B SHANTE, CDP #### [facility] [address] [place], [facility] Program Analyst: Alexey Rob MD Eosinophils (Bld) [#/Vol] 0.13 10*3/uL Normal 0.00-0.44 [facility] Comment on above: Performed By: #### B HSANTE, CDP #### [facility] [address] [place], [place] [phone] Program Analyst: Alexey Rob MD Eosinophils/100 WBC (Bld) 2 % Normal 1-4 [facility] Comment on above: Performed By: #### B MP, CDP #### [facility] [address] [place] [address] Dr. [place], [place] [id number] Program Analyst: Alexey Rob MD Erythrocyte distribution width (RBC) [Ratio] 13.6 % Normal 11.8-14.4 [facility] Comment on above: Performed By: #### B MP, CDP #### [address] [place], [place] [address] Program Analyst: Alexey Rob MD Hematocrit (Bld) [Volume fraction] 44.2 % Normal 36.3-47.1 [facility] Comment on above: Performed By: #### B SHANTE, CDP #### [address] [place], [place] [address]83 Program Analyst: Alexey Rob MD Hemoglobin (Bld) [Mass/Vol] 14.1 g/dL Normal 11.9-15.1 [facility] Comment on above: Performed By: #### B MP, CDP #### [address] [place], [place] [phone] Program Analyst: Alexey Rob MD Immature granulocytes/100 WBC (Bld) 1 % High 0 [facility] Comment on above: Performed By: #### B MP, CDP #### [facility] [address] [place] [address] Dr. [place], [place] [phone] Program Analyst: Alexey Rob MD Lymphocytes (Bld) [#/Vol] 1.87 10*3/uL Normal 1.10-3.70 [facility] Comment on above: Performed By: #### B MP, CDP #### [facility] [address] [place] [address] Dr. [place], [place] [phone] Program Analyst: Alexey Rob MD Lymphocytes/100 WBC (Bld) 24 % Normal 24-43 [facility] Comment on above: Performed By: #### B SHANTE, CDP #### [facility] [address] [place], [place] [phone] Program Analyst: Alexey Rob MD MCH (RBC) [Entitic mass] 29.5 pg Normal 25.2-33.5 [facility] Comment on above: Performed By: #### B MP, CDP #### [facility] [address] [place], [place] 4388483 Program Analyst: Alexey Rob MD MCHC (RBC) [Mass/Vol] 31.9 g/dL Normal 28.4-34.8 [facility] Comment on above: Performed By: #### B SHANTE, CDP #### [facility] [address] [place] [address] Dr. [place], [place] [phone] Program Analyst: Alexey Rob MD MCV (RBC) [Entitic vol] 92.5 fL Normal 82.6-102.9 [facility] Comment on above: Performed By: #### B SHANTE, CDP #### [address] [place], [place] [id number] Program Analyst: Alexey Rob MD Monocytes (Bld) [#/Vol] 0.75 10*3/uL Normal 0.10-1.20 [facility] Comment on above: Performed By: #### B SHANTE, CDP #### [facility] [address] [place], [place] [phone] Program Analyst: Alexey Rob MD Monocytes/100 WBC (Bld) 9 % Normal 3-12 [facility] Comment on above: Performed By: #### B MP, CDP #### [facility] [address] [place], [place] [phone] Program Analyst: Alexey Rob MD Neutrophil (Seg) 63 % Normal 36-65 [facility] Comment on above: Performed By: #### B MP, CDP #### [facility] [address] [place], [place] [phone] Program Analyst: Alexey Rob MD NRBC Automated 0.0 per 100 WBC Normal 0.0 [facility] Comment on above: Performed By: #### B MP, CDP #### [facility] [address] [place] [address] Program Analyst: Alexey Rob MD Platelet mean volume (Bld) [Entitic vol] 9.6 fL Normal 8.1-13.5 [facility] Comment on above: Performed By: #### B SHANTE, CDP #### [address] [place] [address] Program Analyst: Alexey Rob MD Platelets (Bld) [#/Vol] 205 10*3/uL Normal 138-453 [facility] Comment on above: Performed By: #### B SHANTE, CDP #### [address] [place] [address] Program Analyst: Alexey Rob MD RBC (Bld) [#/Vol] 4.78 10*6/uL Normal 3.95-5.11 [facility] Comment on above: Performed By: #### B MP, CDP #### [address] [place] [address] Program Analyst: Alexey Rob MD WBC (Bld) [#/Vol] 8.0 10*3/uL Normal 3.5-11.3 [facility] Comment on above: Performed By: #### B MP, CDP #### [address] [place], [place] [phone] Program Analyst: Alexey Rob MD MRSA, DNA, Nasalon 3 Specimen Description .NASAL SWAB Normal [facility] Comment on above: Performed By: #### M RSANO #### [facility] [address] [place] [address] Program Analyst: Jose Miguel Davis MD [facility] [address] [place] [address] Program Analyst: Alexey Rob MD Type + Screenon 09-08-2023 Type + Screen Sample Expiration 10/06/2023,2359 Arm Band Number [id number] ABO/Rh(D) A POSITIVE Antibody Screen NEGATIVE Normal [facility] Comment on above: Performed By: #### T YS #### [facility] [address] [place] [address] Program Analyst: Alexey Rob MD Alanine aminotransferase [En zymatic activity/volume] in Serum or PlasmaOrdered By: Rose Ohara on 08-09-2023 ALT [Catalytic activity/Vol] 13 U/L 7-52 [facility] Albumin [Mass/volume] in Ser um or Plasma by Bromocresol green (BCG) dye binding methoOrdered By: Rose Ohara on 08-09-2023 Albumin BCG dye [Mass/Vol] 4.5 g/dL 3.5-5.7 [facility] Alkaline phosphatase [Enzyma tic activity/volume] in Serum or PlasmaOrdered By: Rose Ohara on 08-09-2023 ALP [Catalytic activity/Vol] 48 U/L 34-104 [facility] Aspartate aminotransferase [ Enzymatic activity/volume] in Serum or PlasmaOrdered By: Rose Ohara on 08-09-2023 AST [Catalytic activity/Vol] 11 U/L 13-39 [facility] Basophils Auto (Bld) [#/Vol] Ordered By: Rose Ohara on 08-09-2023 Basophils (Bld) [#/Vol] 0.1 10*3/uL 0.0-0.2 [facility] Basophils/100 WBC Auto (Bld) Ordered By: Rose Ohara on 08-09-2023 Basophils/100 WBC (Bld) 1.3 % . [facility] Bilirubin.total [Mass/volume ] in Serum or PlasmaOrdered By: Rose Ohara on 08-09-2023 Bilirubin [Mass/Vol] 1.1 mg/dL 0.3-1.[address] [facility] Calcium [Mass/volume] in Ser um or PlasmaOrdered By: Rose Ohara on 08-09-2023 Calcium [Mass/Vol] 9.8 mg/dL 8.6-10.3 [facility] Carbon dioxide, total [Moles /volume] in Serum or PlasmaOrdered By: Rose Ohara on 08-09-2023 CO2 [Moles/Vol] 27.9 mmol/L 21.0-31.0 [facility] Chloride [Moles/volume] in S marlena or PlasmaOrdered By: Rose Ohara on 08-09-2023 Chloride [Moles/Vol] 104 mmol/L 98-[address] [facility] Creatinine [Mass/volume] in Serum or PlasmaOrdered By: Rose Ohara on 08-09-2023 Creatinine [Mass/Vol] 0.86 mg/dL 0.60-1.20 [facility] Eosinophils Auto (Bld) [#/Vo l]Ordered By: Rose Ohara on 08-09-2023 Eosinophils (Bld) [#/Vol] 0.1 10*3/uL 0.0-0.45 [facility] Eosinophils/100 WBC Auto (Bl d)Ordered By: Rose Ohara on 08-09-2023 Eosinophils/100 WBC (Bld) 1.9 % . [facility] Erythrocyte distribution wid th Auto (RBC) [Ratio]Ordered By: Rose Ohara on 08-09-2023 Erythrocyte distribution width (RBC) [Ratio] 14.5 % 11.9-15.3 [facility] Globulin Calc (S) [Mass/Vol] Ordered By: Rose Ohara on 08-09-2023 Globulin (S) [Mass/Vol] 2.5 g/dL [facility] Glucose [Mass/volume] in Ser um [...] Hematocrit (Bld) [Volume fraction] 41.7 % 34.0-46.4 [facility] Hemoglobin [Mass/volume] in BloodOrdered By: Rose Ohara on 08-09-2023 Hemoglobin (Bld) [Mass/Vol] 13.6 g/dL 11.8-15.4 [facility] Lactate dehydrogenase [Enzym atic activity/volume] in Serum or Plasma by Lactate to pyOrdered By: Rose Ohara on 08-09-2023 LDH Lactate to pyruvate reaction [Catalytic activity/Vol] 135 U/L 140-271 [facility] Leukocytes [#/volume] correc jin for nucleated erythrocytes in Blood by Automated counOrdered By: Rose Ohara on 08-09-2023 WBC corrected for nucl RBC Auto (Bld) [#/Vol] 6.5 10*3/uL 3.8-11.6 [facility] Lymphocytes Auto (Bld) [#/Vo l]Ordered By: Rose Ohara on 08-09-2023 Lymphocytes (Bld) [#/Vol] 1.6 10*3/uL 1.00-4.8 [facility] Lymphocytes/100 WBC Auto (Bl d)Ordered By: Rose Ohara on 08-09-2023 Lymphocytes/100 WBC (Bld) 23.9 % . [facility] MCH Auto (RBC) [Entitic mass ]Ordered By: Rose Ohara on 08-09-2023 MCH (RBC) [Entitic mass] 29.6 pg 24.7-34.3 [facility] MCHC Auto (RBC) [Mass/Vol]Or dered By: Rose Ohara on 08-09-2023 MCHC (RBC) [Mass/Vol] 32.6 g/dL 32.0-35.0 [facility] MCV Auto (RBC) [Entitic vol] Ordered By: Rose Ohara on 08-09-2023 MCV (RBC) [Entitic vol] 90.7 fL 80-100 [facility] Monocytes Auto (Bld) [#/Vol] Ordered By: Rose Ohara on 08-09-2023 Monocytes (Bld) [#/Vol] 0.6 10*3/uL 0.0-0.8 [facility] Monocytes/100 WBC Auto (Bld) Ordered By: Rose Ohara on 08-09-2023 Monocytes/100 WBC (Bld) 9.2 % . [facility] Neutrophils Auto (Bld) [#/Vo l]Ordered By: Rose Ohara on 08-09-2023 Neutrophils (Bld) [#/Vol] 4.1 10*3/uL 1.8-7.7 [facility] Neutrophils/100 WBC Auto (Bl d)Ordered By: Rose Ohara on 08-09-2023 Neutrophils/100 WBC (Bld) 63.7 % . [facility] No Panel InformationOrdered By: Rose Ohara on 08-09-2023 Estimated GFR (CKD-EPI) > 60.0 mL/Min [facility] Creatinine Clearance (Chem 64.19 [facility] Nucleated erythrocytes [Pres ence] in Blood by Automated countOrdered By: Rose Ohara on 08-09-2023 Nucleated RBC Auto Ql (Bld) 0.1 /100{WBC} 0-0.5 [facility] Platelet mean volume Auto (B ld) [Entitic vol]Ordered By: Rose Ohara on 08-09-2023 Platelet mean volume (Bld) [Entitic vol] 7.8 fL 6.3-10.7 [facility] Platelets Auto (Bld) [#/Vol] Ordered By: Rose Ohara on 08-09-2023 Platelets (Bld) [#/Vol] 200 10*3/uL 150-450 [facility] Potassium [Moles/volume] in Serum or PlasmaOrdered By: Rose Ohara on 08-09-2023 Potassium [Moles/Vol] 5.1 mmol/L 3.5-5.1 [facility] Protein [Mass/volume] in Ser um or PlasmaOrdered By: Rose Ohara on 08-09-2023 Protein [Mass/Vol] 7.0 g/dL 6.4-8.9 [facility] RBC Auto (Bld) [#/Vol]Ordere d By: Rose Ohara on 08-09-2023 RBC (Bld) [#/Vol] 4.59 10*6/uL 3.60-5.00 [facility] Serum or plasma albumin/glob ulin mass ratioOrdered By: Rose Ohara on 08-09-2023 Albumin/Globulin [Mass ratio] 1.8 {ratio} [facility] Serum or plasma anion gap de terminationOrdered By: Rose Ohara on 08-09-2023 Anion gap [Moles/Vol] 13.2 mmol/L 6.0-15.0 [facility] Sodium [Moles/volume] in Ser um or PlasmaOrdered By: Rose Ohara on 08-09-2023 Sodium [Moles/Vol] 140 mmol/L 136-145 [facility] Urea nitrogen [Mass/volume] in Serum or PlasmaOrdered By: Rose Ohara on 08-09-2023 Urea nitrogen [Mass/Vol] 26 mg/dL 7-25 [facility] WBC Auto (Bld) [#/Vol]Ordere d By: Rose Ohara on 08-09-2023 WBC (Bld) [#/Vol] 6.5 10*3/uL 3.8-11.6 [facility] Alanine aminotransferase [En zymatic activity/volume] in Serum or PlasmaOrdered By: Rose Ohara on 04-12-2023 ALT [Catalytic activity/Vol] 17 U/L 7-52 [facility] Albumin [Mass/volume] in Ser um or Plasma by Bromocresol green (BCG) dye binding methoOrdered By: Rose Ohara on 04-12-2023 Albumin BCG dye [Mass/Vol] 4.1 g/dL 3.5-5.7 [facility] Alkaline phosphatase [Enzyma tic activity/volume] in Serum or PlasmaOrdered By: Rose Ohara on 04-12-2023 ALP [Catalytic activity/Vol] 57 U/L 34-104 [facility] Aspartate aminotransferase [ Enzymatic activity/volume] in Serum or PlasmaOrdered By: Rose Ohara on 04-12-2023 AST [Catalytic activity/Vol] 16 U/L 13-39 [facility] Basophils Auto (Bld) [#/Vol] Ordered By: Rose Ohara on 04-12-2023 Basophils (Bld) [#/Vol] 0.1 10*3/uL 0.0-0.2 [facility] Basophils/100 WBC Auto (Bld) Ordered By: Rose Ohara on 04-12-2023 Basophils/100 WBC (Bld) 0.9 % . [facility] Bilirubin.total [Mass/volume ] in Serum or PlasmaOrdered By: Rose Ohara on 04-12-2023 Bilirubin [Mass/Vol] 0.9 mg/dL 0.3-1.[address] [facility] Calcium [Mass/volume] in Ser um or PlasmaOrdered By: Rose Ohara on 04-12-2023 Calcium [Mass/Vol] 9.1 mg/dL 8.6-10.3 [facility] Carbon dioxide, total [Moles /volume] in Serum or PlasmaOrdered By: Rose Ohara on 04-12-2023 CO2 [Moles/Vol] 27.2 mmol/L 21.0-31.0 [facility] Chloride [Moles/volume] in S marlena or PlasmaOrdered By: Rose Ohara on 04-12-2023 Chloride [Moles/Vol] 102 mmol/L 98-[address] [facility] Creatinine [Mass/volume] in Serum or PlasmaOrdered By: Rose Ohara on 04-12-2023 Creatinine [Mass/Vol] 1.01 mg/dL 0.60-1.20 [facility] Eosinophils Auto (Bld) [#/Vo l]Ordered By: Rose Ohara on 04-12-2023 Eosinophils (Bld) [#/Vol] 0.2 10*3/uL 0.0-0.45 [facility] Eosinophils/100 WBC Auto (Bl d)Ordered By: Rose Ohara on 04-12-2023 Eosinophils/100 WBC (Bld) 2.2 % . [facility] Erythrocyte distribution wid th Auto (RBC) [Ratio]Ordered By: Rose Ohara on 04-12-2023 Erythrocyte distribution width (RBC) [Ratio] 14.7 % 11.9-15.3 [facility] Globulin Calc (S) [Mass/Vol] Ordered By: Rose Ohraa on 04-12-2023 Globulin (S) [Mass/Vol] 2.6 g/dL [facility] Glucose [Mass/volume] in Ser um [...] Hematocrit (Bld) [Volume fraction] 41.4 % 34.0-46.4 [facility] Hemoglobin [Mass/volume] in BloodOrdered By: Rose Ohara on 04-12-2023 Hemoglobin (Bld) [Mass/Vol] 13.5 g/dL 11.8-15.4 [facility] Lactate dehydrogenase [Enzym atic activity/volume] in Serum or Plasma by Lactate to pyOrdered By: Rose Ohara on 04-12-2023 LDH Lactate to pyruvate reaction [Catalytic activity/Vol] 120 U/L 140-271 [facility] Leukocytes [#/volume] correc jin for nucleated erythrocytes in Blood by Automated counOrdered By: Rose Ohara on 04-12-2023 WBC corrected for nucl RBC Auto (Bld) [#/Vol] 6.9 10*3/uL 3.8-11.6 [facility] Lymphocytes Auto (Bld) [#/Vo l]Ordered By: Rose Ohara on 04-12-2023 Lymphocytes (Bld) [#/Vol] 1.8 10*3/uL 1.00-4.8 [facility] Lymphocytes/100 WBC Auto (Bl d)Ordered By: Rose Ohara on 04-12-2023 Lymphocytes/100 WBC (Bld) 26.0 % . [facility] MCH Auto (RBC) [Entitic mass ]Ordered By: Rose Ohara on 04-12-2023 MCH (RBC) [Entitic mass] 29.3 pg 24.7-34.3 [facility] MCHC Auto (RBC) [Mass/Vol]Or dered By: Rose Ohara on 04-12-2023 MCHC (RBC) [Mass/Vol] 32.7 g/dL 32.0-35.0 [facility] MCV Auto (RBC) [Entitic vol] Ordered By: Rose Ohara on 04-12-2023 MCV (RBC) [Entitic vol] 89.4 fL 80-100 [facility] Monocytes Auto (Bld) [#/Vol] Ordered By: Rose Ohara on 04-12-2023 Monocytes (Bld) [#/Vol] 0.6 10*3/uL 0.0-0.8 [facility] Monocytes/100 WBC Auto (Bld) Ordered By: Rose Ohara on 04-12-2023 Monocytes/100 WBC (Bld) 8.6 % . [facility] Neutrophils Auto (Bld) [#/Vo l]Ordered By: Rose Ohara on 04-12-2023 Neutrophils (Bld) [#/Vol] 4.3 10*3/uL 1.8-7.7 [facility] Neutrophils/100 WBC Auto (Bl d)Ordered By: Rose Ohara on 04-12-2023 Neutrophils/100 WBC (Bld) 62.3 % . [facility] No Panel InformationOrdered By: Rose Ohara on 04-12-2023 Estimated GFR (CKD-EPI) 58.780 mL/Min [facility] Creatinine Clearance (Chem 54.77 [facility] Nucleated erythrocytes [Pres ence] in Blood by Automated countOrdered By: Rose Ohara on 04-12-2023 Nucleated RBC Auto Ql (Bld) 0.1 /100{WBC} 0-0.5 [facility] Platelet mean volume Auto (B ld) [Entitic vol]Ordered By: Rose Ohara on 04-12-2023 Platelet mean volume (Bld) [Entitic vol] 8.3 fL 6.3-10.7 [facility] Platelets Auto (Bld) [#/Vol] Ordered By: Rose Ohara on 04-12-2023 Platelets (Bld) [#/Vol] 197 10*3/uL 150-450 [facility] Potassium [Moles/volume] in Serum or PlasmaOrdered By: Rose Ohara on 04-12-2023 Potassium [Moles/Vol] 4.8 mmol/L 3.5-5.1 [facility] Protein [Mass/volume] in Ser um or PlasmaOrdered By: Rose Ohara on 04-12-2023 Protein [Mass/Vol] 6.7 g/dL 6.4-8.9 [facility] RBC Auto (Bld) [#/Vol]Ordere d By: Rose Ohara on 04-12-2023 RBC (Bld) [#/Vol] 4.62 10*6/uL 3.60-5.00 [facility] Serum or plasma albumin/glob ulin mass ratioOrdered By: Rose Ohara on 04-12-2023 Albumin/Globulin [Mass ratio] 1.6 {ratio} [facility] Serum or plasma anion gap de terminationOrdered By: Rose Ohara on 04-12-2023 Anion gap [Moles/Vol] 15.6 mmol/L 6.0-15.0 [facility] Sodium [Moles/volume] in Ser um or PlasmaOrdered By: Rose Ohara on 04-12-2023 Sodium [Moles/Vol] 140 mmol/L 136-145 [facility] Urea nitrogen [Mass/volume] in Serum or PlasmaOrdered By: Rose Ohara on 04-12-2023 Urea nitrogen [Mass/Vol] 34 mg/dL 7-25 [facility] WBC Auto (Bld) [#/Vol]Ordere d By: Rose Ohara on 04-12-2023 WBC (Bld) [#/Vol] 6.9 10*3/uL 3.8-11.6 [facility] LIPID PROFILEon 03-03-2023 CHOL-HDL RATIO NORM SEE BELOW Normal [facility] Comment on above: Result Comment: 3.3 - 4.4 LOW RISK 4.4 - 7.1 AVERAGE RISK 7.1 - 11.0 MODERATE RISK >11.0 HIGH RISK Performed By: #### L IPID #### [facility] [address] [place], [place] [address] Dr. Claudia Branch Cholesterol [Mass/Vol] 129 mg/dL Normal <=200 [facility] Comment on above: Performed By: #### L IPID #### [facility] [address] [place], [place] [address] Dr. Claudia Branch Cholesterol in HDL [Mass/Vol] 43 mg/dL Normal 40-60 [facility] Comment on above: Performed By: #### L IPID #### [facility] [address] [place] [address] [address] Claudia Branch Cholesterol in LDL [Mass/Vol] 34.4 mg/dL Normal [facility] Comment on above: Performed By: #### L IPID #### [facility] [address] [place] [address] [address] Claudia Branch Cholesterol.total/Cho lesterol in HDL [Mass ratio] 3.0 {ratio} Normal [facility] Comment on above: Performed By: #### L IPID #### [facility] [address] [place] [address] [address] Claudia Branch HDL NORMAL > or = 60 mg/dl - LO W CARDIOVASCULAR RISK <40 mg/dl - HIGH CARDIOVASCULAR RISK Normal [facility] Comment on above: Performed By: #### L IPID #### [facility] [address] [place] [address] Dr. Claudia Branch LDL CALC NORMAL SEE BELOW Normal [facility] Comment on above: Result Comment: <100 mg/dl OPTIMAL 100 - 129 mg/dl NEAR OR ABOVE OPTIMAL 130 - 159 mg/dl BORDERLINE HIGH 160 - 189 mg/dl HIGH >190 mg/dl VERY HIGH Performed By: #### L IPID #### [facility] [address] [address] [address] Claudia Branch Triglyceride [Mass/Vol] 258 mg/dL Critically high <=150 [facility] Comment on above: Performed By: #### L IPID #### [facility] [address] [place] [address] Dr. Claudia Branch VLDL CALC 51.6 mg/dL Normal [facility] Comment on above: Performed By: #### L IPID #### [facility] [address] [place] [address] Dr. Claudia Branch PROF 14(COMP METB)on 023 Albumin [Mass/Vol] 3.7 g/dL Normal 3.4-5.0 [facility] Comment on above: Performed By: #### C MP #### [facility] [address] [place] [address] Dr. Claudia Branch Albumin/Globulin [Mass ratio] 1.1 {ratio} Normal [facility] Comment on above: Performed By: #### C MP #### [facility] [address] [place] [address] Dr. Claudia Branch ALP [Catalytic activity/Vol] 66 U/L Normal 46-116 [facility] Comment on above: Performed By: #### C MP #### [facility] [address] [place] [address] Dr. Claudia Branch ALT [Catalytic activity/Vol] 22 U/L Normal 14-59 [facility] Comment on above: Performed By: #### C MP #### [facility] [address] [place] [address] Dr. Claudia Branch Anion gap [Moles/Vol] 15.4 mmol/L Normal [facility] Comment on above: Performed By: #### C MP #### [facility] [address] [place] [address] Dr. Claudia Branch AST [Catalytic activity/Vol] 14 U/L Critically low 15-37 [facility] Comment on above: Performed By: #### C MP #### [facility] [address] [place] [address] Dr. Claudia Branch Bilirubin [Mass/Vol] 1.0 mg/dL Normal 0.2-1.0 [facility] Comment on above: Performed By: #### C MP #### [facility] [address] [place] [address] Dr. Claudia Branch Calcium [Mass/Vol] 9.4 mg/dL Normal 8.5-10.1 [facility] Comment on above: Performed By: #### C MP #### [facility] [address] [place] [address] Dr. Claudia Branch Chloride [Moles/Vol] 102 mmol/L Normal 98-107 [facility] Comment on above: Performed By: #### C MP #### [facility] [address] [place] [address] Dr. Claudia Branch CO2 [Moles/Vol] 28.0 mmol/L Normal 21.0-32.0 [facility] Comment on above: Performed By: #### C MP #### [facility] [address] [place] [address] Dr. Claudia Branch Creatinine [Mass/Vol] 1.04 mg/dL Critically high 0.55-1.02 [facility] Comment on above: Performed By: #### C MP #### [facility] [address] [address] [address] Claudia Branch EGFR-AF MALAWIAN >60 Normal >=60 [facility] Comment on above: Performed By: #### C MP #### [facility] [address] [place] [address] Dr. Claudia Branch EGFR-NON AF MALAWIAN 52 mL/min/1.73m2 Critically low >=60 [facility] Comment on above: Performed By: #### C MP #### [facility] [address] [place] [address] Dr. Claudia Branch Globulin (S) [Mass/Vol] 3.5 g/dL Normal [facility] Comment on above: Performed By: #### C MP #### [facility] [address] [place] [address] Dr. Claudia Branch Glucose [Mass/Vol] 174 mg/dL Critically high 74-106 [facility] Comment on above: Performed By: #### C MP #### [facility] [address] [place] [address] Dr. Claudia Branch Potassium [Moles/Vol] 5.4 mmol/L Critically high 3.5-5.1 [facility] Comment on above: Performed By: #### C MP #### [facility] [address] [place] [address] Dr. Claudia Branch Protein [Mass/Vol] 7.2 g/dL Normal 6.4-8.2 [facility] Comment on above: Performed By: #### C MP #### [facility] [address] [place] [address] Dr. Claudia Branch Sodium [Moles/Vol] 140 mmol/L Normal 136-145 [facility] Comment on above: Performed By: #### C MP #### [facility] [address] [address] [address] Claudia Branch Urea nitrogen [Mass/Vol] 26.0 mg/dL Critically high 7.0-18.0 [facility] Comment on above: Performed By: #### C MP #### [facility] [address] [address] [address] Claudia Branch Urea nitrogen/Creatinine [Mass ratio] 25.0 mg/mg Normal [facility] Comment on above: Performed By: #### C MP #### [facility] [address] [address] [address] Claudia Branch Estimated glomerular filtrat ion rate (GFR) non- AmericanOrdered By: Rose Ohara on 12-21-2022 GFR/1.73 sq M.predicted among non-blacks MDRD (S/P/Bld) [Vol rate/Area] > 60 mL/Min [facility] GFR/1.73 sq M.predicted among non-blacks MDRD (S/P/Bld) [Vol rate/Area] Estimated glomerular filtration rate (GFR) non- [facility] No Panel InformationOrdered By: Rose Ohara on 12-21-2022 Estimated GFR () > 60 mL/Min [facility] Comment on above: GFR estimated refere nce range: According to KDOQI guidelines, <60 ml/min/1.73m2 is sufficient to diagnose a patient with chronic kidney disease. Albumin [Mass/volume] in Ser um or PlasmaOrdered By: Rose Ohara on 09-22-2022 Albumin [Mass/Vol] 3.7 g/dL 3.2-5.5 [facility] Basophils Auto (Bld) [#/Vol] Ordered By: Rose Ohara on 09-22-2022 Basophils (Bld) [#/Vol] 0.1 10*3/uL 0.0-0.2 [facility] Basophils/100 WBC Auto (Bld) Ordered By: Rose Ohara on 09-22-2022 Basophils/100 WBC (Bld) 1.0 % . [facility] Creatinine and Glomerular fi ltration rate.predicted panel (S/P/Bld)Ordered By: Rose Ohara on 09-22-2022 Creatinine [Mass/Vol] 0.80 mg/dL 0.44-1.03 [facility] Eosinophils Auto (Bld) [#/Vo l]Ordered By: Rose Ohara on 09-22-2022 Eosinophils (Bld) [#/Vol] 0.1 10*3/uL 0.0-0.45 [facility] Eosinophils/100 WBC Auto (Bl d)Ordered By: Rose Ohara on 09-22-2022 Eosinophils/100 WBC (Bld) 2.0 % . [facility] Erythrocyte distribution wid th Auto (RBC) [Ratio]Ordered By: Rose Ohara on 09-22-2022 Erythrocyte distribution width (RBC) [Ratio] 14.7 % 11.9-15.3 [facility] Estimated glomerular filtrat ion rate (GFR) non- AmericanOrdered By: Rose Ohara on 09-22-2022 GFR/1.73 sq M.predicted among non-blacks MDRD (S/P/Bld) [Vol rate/Area] > 60 mL/Min [facility] Globulin Calc (S) [Mass/Vol] Ordered By: Rose Ohara on 09-22-2022 Globulin (S) [Mass/Vol] 2.8 g/dL [facility] Hematocrit Auto (Bld) [Volum e fraction]Ordered By: Rose Ohara on 09-22-2022 Hematocrit (Bld) [Volume fraction] 43.2 % 34.0-46.4 [facility] Hemoglobin [Mass/volume] in BloodOrdered By: Rose Ohara on 09-22-2022 Hemoglobin (Bld) [Mass/Vol] 13.9 g/dL 11.8-15.4 [facility] - Hematology and Cell countsOrdered By: Rose Ohara on 09-22-2022 Nucleated RBC/100 WBC (Bld) [Ratio] 0.1 % 0-0.5 [facility] Lactate dehydrogenase measur ement (enzymatic activity/volume)Ordered By: Rose Ohara on 09-22-2022 LDH (Unsp spec) [Catalytic activity/Vol] 106 U/L 45-190 [facility] Leukocytes [#/volume] in Blo od by Automated countOrdered By: Rose Ohara on 09-22-2022 WBC (Bld) [#/Vol] 6.9 10*3/uL 4.5-11.0 [facility] Lymphocytes Auto (Bld) [#/Vo l]Ordered By: Rose Ohara on 09-22-2022 Lymphocytes (Bld) [#/Vol] 1.5 10*3/uL 1.00-4.8 [facility] Lymphocytes/100 WBC Auto (Bl d)Ordered By: Rose Ohara on 09-22-2022 Lymphocytes/100 WBC (Bld) 21.6 % . [facility] MCH Auto (RBC) [Entitic mass ]Ordered By: Rose Ohara on 09-22-2022 MCH (RBC) [Entitic mass] 29.0 pg 24.7-34.3 [facility] MCHC Auto (RBC) [Mass/Vol]Or dered By: Rose Ohara on 09-22-2022 MCHC (RBC) [Mass/Vol] 32.2 g/dL 32.0-35.0 [facility] MCV Auto (RBC) [Entitic vol] Ordered By: Rose Ohara on 09-22-2022 MCV (RBC) [Entitic vol] 90.2 fL 80-100 [facility] Monocytes Auto (Bld) [#/Vol] Ordered By: Rose Ohara on 09-22-2022 Monocytes (Bld) [#/Vol] 0.7 10*3/uL 0.0-0.8 [facility] Monocytes/100 WBC Auto (Bld) Ordered By: Rose Ohara on 09-22-2022 Monocytes/100 WBC (Bld) 9.7 % . [facility] Neutrophils Auto (Bld) [#/Vo l]Ordered By: Rose Ohara on 09-22-2022 Neutrophils (Bld) [#/Vol] 4.5 10*3/uL 1.8-7.7 [facility] Neutrophils/100 WBC Auto (Bl d)Ordered By: Rose Ohara on 09-22-2022 Neutrophils/100 WBC (Bld) 65.7 % . [facility] No Panel InformationOrdered By: Rose Ohara on 09-22-2022 Estimated GFR () > 60 mL/Min [facility] Comment on above: GFR estimated refere nce range: According to KDOQI guidelines, <60 ml/min/1.73m2 is sufficient to diagnose a patient with chronic kidney disease. Pharmacy Creatinine Clearance (Chem 70.04 [facility] Platelet mean volume Auto (B ld) [Entitic vol]Ordered By: Rose Ohara on 09-22-2022 Platelet mean volume (Bld) [Entitic vol] 8.0 fL 6.3-10.7 [facility] Platelets Auto (Bld) [#/Vol] Ordered By: Rose Ohara on 09-22-2022 Platelets (Bld) [#/Vol] 227 10*3/uL 150-450 [facility] Protein [Mass/volume] in Ser um or PlasmaOrdered By: Rose Ohara on 09-22-2022 Protein [Mass/Vol] 6.5 g/dL 6.1-7.9 [facility] RBC Auto (Bld) [#/Vol]Ordere d By: Rose Ohara on 09-22-2022 RBC (Bld) [#/Vol] 4.79 10*6/uL 3.60-5.00 [facility] Serum or plasma alanine mari otransferase measurement without P-5'-P (enzymatic activiOrdered By: Rose Ohara on 09-22-2022 ALT No additional P-5'-P [Catalytic activity/Vol] 16 U/L 10-60 [facility] Serum or plasma albumin/glob ulin mass ratioOrdered By: Rose Ohara on 09-22-2022 Albumin/Globulin [Mass ratio] 1.3 {ratio} [facility] Serum or plasma alkaline danial sphatase measurement (enzymatic activity/volume)Ordered By: Rose Ohara on 09-22-2022 ALP [Catalytic activity/Vol] 45 U/L 32-92 [facility] Serum or plasma anion gap de terminationOrdered By: Rose Ohraa on 09-22-2022 Anion gap [Moles/Vol] 11.0 mmol/L 6.0-15.0 [facility] Serum or plasma aspartate am inotransferase measurement (enzymatic activity/volume)Ordered By: Rose Ohara on 09-22-2022 AST [Catalytic activity/Vol] 17 U/L 10-42 [facility] Serum or plasma calcium kandi urement (mass/volume)Ordered By: Rose Ohara on 09-22-2022 Calcium [Mass/Vol] 9.2 mg/dL 8.2-10.2 [facility] Serum or plasma chloride florentino surement (moles/volume)Ordered By: Rose Ohara on 09-22-2022 Chloride [Moles/Vol] 99 mmol/L 95-[address] [facility] Serum or plasma glucose kandi urement [...] on 09-22-2022 Potassium [Moles/Vol] 4.3 mmol/L 3.5-5.1 [facility] Serum or plasma sodium measu rement (moles/volume)Ordered By: Rose Ohara on 09-22-2022 Sodium [Moles/Vol] 135 mmol/L 136-146 [facility] Serum or plasma total biliru bin measurement (mass/volume)Ordered By: Rose Ohara on 09-22-2022 Bilirubin [Mass/Vol] 1.2 mg/dL 0.3-1.[address] [facility] Serum or plasma total carbon dioxide measurement (moles/volume)Ordered By: Rose Ohara on 09-22-2022 CO2 [Moles/Vol] 29.3 mmol/L 22.0-30.0 [facility] Serum or plasma urea nitroge n measurement (mass/volume)Ordered By: Rose Ohara on 09-22-2022 Urea nitrogen [Mass/Vol] 16 mg/dL 9-23 [facility] GLYCOHEMOGLOBIN A1Con 2021 ADA RECOMMENDATION SEE BELOW Normal [facility] Comment on above: Result Comment: ADA RECOMMENDED LIMIT 4.0 - 6.0 ADA THERAPEUTIC TARGET < 7.0 ACTION SUGGESTED > 7.0 Performed By: #### A 1C #### [facility] [address] [place] [address] Dr. Claudia Branch Glucose [Mass/Vol] 169 mg/dL Normal [facility] Comment on above: Performed By: #### A 1C #### [facility] [address] [address] [address] Claudia Branch HbA1c (Bld) [Mass fraction] 7.5 % Critically high 4.5-6.2 [facility] Comment on above: Performed By: #### A 1C #### [facility] [address] [place] [address] Dr. Claudia Branch LIPID PROFILEon 08-26-2022 CHOL-HDL RATIO NORM SEE BELOW Normal [facility] Comment on above: Result Comment: 3.3 - 4.4 LOW RISK 4.4 - 7.1 AVERAGE RISK 7.1 - 11.0 MODERATE RISK >11.0 HIGH RISK Performed By: #### L IPID, CMP #### [facility] [address] [place] [address] Dr. Claudia Branch Cholesterol [Mass/Vol] 99 mg/dL Normal <=200 [facility] Comment on above: Performed By: #### L IPID, CMP #### [facility] [address] [place] [address] Dr. Claudia Branch Cholesterol in HDL [Mass/Vol] 45 mg/dL Normal 40-60 [facility] Comment on above: Performed By: #### L IPID, CMP #### [facility] [address] [place] [address] Dr. Claudia Branch Cholesterol in LDL [Mass/Vol] 22.6 mg/dL Normal [facility] Comment on above: Performed By: #### L IPID, CMP #### [facility] [address] [place] [address] Dr. Claudia Branch Cholesterol.total/Cho lesterol in HDL [Mass ratio] 2.2 {ratio} Normal [facility] Comment on above: Performed By: #### L IPID, CMP #### [facility] [address] [address] [address] Claudia Branch HDL NORMAL > or = 60 mg/dl - LO W CARDIOVASCULAR RISK <40 mg/dl - HIGH CARDIOVASCULAR RISK Normal [facility] Comment on above: Performed By: #### L IPID, CMP #### [facility] [address] [address] [address] Claudia Branch LDL CALC NORMAL SEE BELOW Normal [facility] Comment on above: Result Comment: <100 mg/dl OPTIMAL 100 - 129 mg/dl NEAR OR ABOVE OPTIMAL 130 - 159 mg/dl BORDERLINE HIGH 160 - 189 mg/dl HIGH >190 mg/dl VERY HIGH Performed By: #### L IPID, CMP #### [facility] [address] [place] [address] Dr. Claudia Branch Triglyceride [Mass/Vol] 157 mg/dL Critically high <=150 [facility] Comment on above: Performed By: #### L IPID, CMP #### [facility] [address] [address] [address] Claudia Branch VLDL CALC 31.4 mg/dL Normal [facility] Comment on above: Performed By: #### L IPID, CMP #### [facility] [address] [place] [address] Dr. Claudia Branch PROF 14(COMP METB)on 08-26- 022 Albumin [Mass/Vol] 3.9 g/dL Normal 3.4-5.0 [facility] Comment on above: Performed By: #### L IPID, CMP #### [facility] [address] [place] [address] Dr. Claudia Branch Albumin/Globulin [Mass ratio] 1.0 {ratio} Normal [facility] Comment on above: Performed By: #### L IPID, CMP #### [facility] [address] [place] [address] Dr. Claudia Branch ALP [Catalytic activity/Vol] 57 U/L Normal 46-116 [facility] Comment on above: Performed By: #### L IPID, CMP #### [facility] [address] [place] [address] Dr. Claudia Branch ALT [Catalytic activity/Vol] 22 U/L Normal 14-59 [facility] Comment on above: Performed By: #### L IPID, CMP #### [facility] [address] [address] [address] Claudia Branch Anion gap [Moles/Vol] 10.7 mmol/L Normal [facility] Comment on above: Performed By: #### L IPID, CMP #### [facility] [address] [address] [address] Claudia Branch AST [Catalytic activity/Vol] 11 U/L Critically low 15-37 [facility] Comment on above: Performed By: #### L IPID, CMP #### [facility] [address] [place] [address] Dr. Claudia Branch Bilirubin [Mass/Vol] 1.4 mg/dL Critically high 0.2-1.0 [facility] Comment on above: Performed By: #### L IPID, CMP #### [facility] [address] [place] [address] Dr. Claudia Branch Calcium [Mass/Vol] 9.3 mg/dL Normal 8.5-10.1 [facility] Comment on above: Performed By: #### L IPID, CMP #### [facility] [address] [place] [address] Dr. Claudia Branch Chloride [Moles/Vol] 103 mmol/L Normal 98-107 [facility] Comment on above: Performed By: #### L IPID, CMP #### [facility] [address] [place] [address] Dr. Claudia Branch CO2 [Moles/Vol] 31.2 mmol/L Normal 21.0-32.0 [facility] Comment on above: Performed By: #### L IPID, CMP #### [facility] [address] [place] [address] Dr. Claudia Branch Creatinine [Mass/Vol] 0.83 mg/dL Normal 0.55-1.02 [facility] Comment on above: Performed By: #### L IPID, CMP #### [facility] [address] [address] [address] Claudia Branch EGFR-AF MALAWIAN >60 Normal >=60 [facility] Comment on above: Performed By: #### L IPID, CMP #### [facility] [address] [address] [address] Claudia Branch EGFR-NON AF MALAWIAN >60 Normal >=60 [facility] Comment on above: Performed By: #### L IPID, CMP #### [facility] [address] [address] [address] Claudia Branch Globulin (S) [Mass/Vol] 3.6 g/dL Normal [facility] Comment on above: Performed By: #### L IPID, CMP #### [facility] [address] [address] [address] Claudia Branch Glucose [Mass/Vol] 114 mg/dL Critically high 74-106 [facility] Comment on above: Performed By: #### L IPID, CMP #### [facility] [address] [address] [address] Claudia Branch Potassium [Moles/Vol] 4.4 mmol/L Normal 3.5-5.1 [facility] Comment on above: Performed By: #### L IPID, CMP #### [facility] [address] [address] [address] Claudia Branch Protein [Mass/Vol] 7.5 g/dL Normal 6.4-8.2 [facility] Comment on above: Performed By: #### L IPID, CMP #### [facility] [address] [address] [address] Claudia Branch Sodium [Moles/Vol] 141 mmol/L Normal 136-145 [facility] Comment on above: Performed By: #### L IPID, CMP #### [facility] [address] [address] [address] Claudia Branch Urea nitrogen [Mass/Vol] 20.0 mg/dL Critically high 7.0-18.0 [facility] Comment on above: Performed By: #### L IPID, CMP #### [facility] [address] [address] [address] Claudia Branch Urea nitrogen/Creatinine [Mass ratio] 24.0 mg/mg Normal [facility] Comment on above: Performed By: #### L IPID, CMP #### [facility] [address] [address] [address] Claudia Branch GI PANEL (PCR)on 08-11-2022 Adenovirus F 40/41 Not detected Normal NOT DETECTED [facility] Comment on above: Performed By: #### G IPANEL #### [facility] [address] [address] [address] Claudia Branch Astrovirus Not detected Normal NOT DETECTED [facility] Comment on above: Performed By: #### G IPANEL #### [facility] [address] [place] [address] Dr. Claudia Branch C. Diff toxin A/B Detected Critically abnormal NOT DETECTED [facility] Comment on above: Performed By: #### G IPANEL #### [facility] [address] [place] [address] Dr. Claudia Branch Campylobacter Not detected Normal NOT DETECTED [facility] Comment on above: Performed By: #### G IPANEL #### [facility] [address] [address] [address] Claudia Branch Cryptosporidium Not detected Normal NOT DETECTED [facility] Comment on above: Performed By: #### G IPANEL #### [facility] [address] [address] [address] Claudia Branch Cyclos. Cayetanensis Not detected Normal NOT DETECTED [facility] Comment on above: Performed By: #### G IPANEL #### [facility] [address] [address] [address] Claudia Branch E. Coli O157 Not Applicable Normal Not Applicable [facility] Comment on above: Performed By: #### G IPANEL #### [facility] [address] [address] [address] Claudia Branch E. histolytica Not detected Normal NOT DETECTED [facility] Comment on above: Performed By: #### G IPANEL #### [facility] [address] [place] [address] Dr. Claudia Branch EAEC Not detected Normal NOT DETECTED [facility] Comment on above: Performed By: #### G IPANEL #### [facility] [address] [place] [address] Dr. Claudia Branch EIEC Not detected Normal NOT DETECTED [facility] Comment on above: Performed By: #### G IPANEL #### [facility] [address] [place] [address] Dr. Claudia Branch EPEC Not detected Normal NOT DETECTED [facility] Comment on above: Performed By: #### G IPANEL #### [facility] [address] [place] [address] Dr. Claudia Branch ETEC Not detected Normal NOT DETECTED [facility] Comment on above: Performed By: #### G IPANEL #### [facility] [address] [place] [address] Dr. Claudia Lan Lamblia Not detected Normal NOT DETECTED [facility] Comment on above: Performed By: #### G IPANEL #### [facility] [address] [place] [address] Dr. Claudia ROSE CONTROLS PASSED Normal [facility] Comment on above: Performed By: #### G IPANEL #### [facility] [address] [place] [address] Dr. Claudia MCKAY [facility] GI PANEL BACTERIA Normal [facility] Comment on above: Performed By: #### G IPANEL #### [facility] [address] [place] [address] Dr. Claudia RAMIREZ ECOLI GI PANEL DIARRHEAGEN IC E.COLI / SHIGELLA Normal [facility] Comment on above: Performed By: #### G IPANEL #### [facility] [address] [place] [address] Dr. Claudia RAMIREZ INFO SEE BELOW Normal [facility] Comment on above: Result Comment: EAEC - Enteroaggregative E. Coli EPEC- Enteropathogenic E. Coli ETEC- Enterotoxigenic E. Coli lt/st STEC- Shigella-like toxin-producing E. Coli stx1/stx2 EIEC- Shigella/Enteroinvasive E. Coli Performed By: #### G IPANEL #### [facility] [address] [place] [address] Dr. Claudia RAMIREZ PARASITES GI PANEL PARASITES Normal [facility] [facility] Comment on above: Performed By: #### G IPANEL #### [facility] [address] [place] [address] Dr. Claudia RAMIREZ VIRUS GI PANEL VIRUSES Normal [facility] Comment on above: Performed By: #### G IPANEL #### [facility] [address] [place] [address] Dr. Claudia Branch Norovirus GI/GII Not detected Normal NOT DETECTED [facility] Comment on above: Performed By: #### G IPANEL #### [facility] [address] [place] [address] Dr. Claudia Branch P. Shigelloides Not detected Normal NOT DETECTED [facility] Comment on above: Performed By: #### G IPANEL #### [facility] [address] [place] [address] Dr. Claudia Branch Rotavirus A Not detected Normal NOT DETECTED [facility] Comment on above: Performed By: #### G IPANEL #### [facility] [address] [place] [address] Dr. Claudia Branch Salmonella Not detected Normal NOT DETECTED [facility] Comment on above: Performed By: #### G IPANEL #### [facility] [address] [place] [address] Dr. Claudia Branch Sapovirus Not detected Normal NOT DETECTED [facility] Comment on above: Performed By: #### G IPANEL #### [facility] [address] [place] [address] Dr. Claudia Branch STEC Not detected Normal NOT DETECTED [facility] Comment on above: Performed By: #### G IPANEL #### [facility] [address] [place] [address] Dr. Claudia Branch Vibrio Not detected Normal NOT DETECTED [facility] Comment on above: Performed By: #### G IPANEL #### [facility] [address] [address] [address] Claudia Branch Vibrio Cholera Not detected Normal NOT DETECTED [facility] Comment on above: Performed By: #### G IPANEL #### [facility] [address] [address] [address] Claudia Branch Y. Enterocolitica Not detected Normal NOT DETECTED [facility] Comment on above: Performed By: #### G IPANEL #### [facility] [address] [address] [address] Claudia Branch Albumin [Mass/volume] in Ser um or PlasmaOrdered By: Rose Ohara on 06-29-2022 Albumin [Mass/Vol] 4.1 g/dL 3.2-5.5 [facility] Basophils Auto (Bld) [#/Vol] Ordered By: Rose Ohara on 06-29-2022 Basophils (Bld) [#/Vol] 0.1 10*3/uL 0.0-0.2 [facility] Basophils/100 WBC Auto (Bld) Ordered By: Rose Ohara on 06-29-2022 Basophils/100 WBC (Bld) 1.2 % . [facility] Blood hemoglobin measurement (mass/volume)Ordered By: Rose Ohara on 06-29-2022 Hemoglobin (Bld) [Mass/Vol] 15.0 g/dL 11.8-15.4 [facility] Blood leukocytes automated c ount (number/volume)Ordered By: Rose Ohara on 06-29-2022 WBC (Bld) [#/Vol] 8.4 10*3/uL 4.5-11.0 [facility] Creatinine and Glomerular fi ltration rate.predicted panel (S/P/Bld)Ordered By: Rose Ohara on 06-29-2022 Creatinine [Mass/Vol] 0.87 mg/dL 0.44-1.03 [facility] Eosinophils Auto (Bld) [#/Vo l]Ordered By: Rose Ohara on 06-29-2022 Eosinophils (Bld) [#/Vol] 0.3 10*3/uL 0.0-0.45 [facility] Eosinophils/100 WBC Auto (Bl d)Ordered By: Rose Ohara on 06-29-2022 Eosinophils/100 WBC (Bld) 3.7 % . [facility] Erythrocyte distribution wid th Auto (RBC) [Ratio]Ordered By: Rose Ohara on 06-29-2022 Erythrocyte distribution width (RBC) [Ratio] 14.9 % 11.9-15.3 [facility] Estimated glomerular filtrat ion rate (GFR) non- AmericanOrdered By: Rose Ohara on 06-29-2022 GFR/1.73 sq M.predicted among non-blacks MDRD (S/P/Bld) [Vol rate/Area] > 60 mL/Min [facility] Globulin Calc (S) [Mass/Vol] Ordered By: Rose Ohara on 06-29-2022 Globulin (S) [Mass/Vol] 3.0 g/dL [facility] Hematocrit Auto (Bld) [Volum e fraction]Ordered By: Rose Ohara on 06-29-2022 Hematocrit (Bld) [Volume fraction] 45.9 % 34.0-46.4 [facility] - Hematology and Cell countsOrdered By: Rose Ohara on 06-29-2022 Nucleated RBC/100 WBC (Bld) [Ratio] 0.1 % 0-0.5 [facility] Lactate dehydrogenase measur ement (enzymatic activity/volume)Ordered By: Rose Ohara on 06-29-2022 LDH (Unsp spec) [Catalytic activity/Vol] 131 U/L 45-190 [facility] Lymphocytes Auto (Bld) [#/Vo l]Ordered By: Rose Ohara on 06-29-2022 Lymphocytes (Bld) [#/Vol] 1.6 10*3/uL 1.00-4.8 [facility] Lymphocytes/100 WBC Auto (Bl d)Ordered By: Rose Ohara on 06-29-2022 Lymphocytes/100 WBC (Bld) 18.8 % . [facility] MCH Auto (RBC) [Entitic mass ]Ordered By: Rose Ohara on 06-29-2022 MCH (RBC) [Entitic mass] 29.8 pg 24.7-34.3 [facility] MCHC Auto (RBC) [Mass/Vol]Or dered By: Rose Ohara on 06-29-2022 MCHC (RBC) [Mass/Vol] 32.8 g/dL 32.0-35.0 [facility] MCV Auto (RBC) [Entitic vol] Ordered By: Rose Ohara on 06-29-2022 MCV (RBC) [Entitic vol] 91.0 fL 80-100 [facility] Monocytes Auto (Bld) [#/Vol] Ordered By: Rose Ohara on 06-29-2022 Monocytes (Bld) [#/Vol] 0.8 10*3/uL 0.0-0.8 [facility] Monocytes/100 WBC Auto (Bld) Ordered By: Rose Ohara on 06-29-2022 Monocytes/100 WBC (Bld) 9.5 % . [facility] Neutrophils Auto (Bld) [#/Vo l]Ordered By: Rose Ohara on 06-29-2022 Neutrophils (Bld) [#/Vol] 5.6 10*3/uL 1.8-7.7 [facility] Neutrophils/100 WBC Auto (Bl d)Ordered By: Rose Ohara on 06-29-2022 Neutrophils/100 WBC (Bld) 66.8 % . [facility] No Panel InformationOrdered By: Rose Ohara on 06-29-2022 Estimated GFR () > 60 mL/Min [facility] Comment on above: GFR estimated refere nce range: According to KDOQI guidelines, <60 ml/min/1.73m2 is sufficient to diagnose a patient with chronic kidney disease. Pharmacy Creatinine Clearance (Chem 64.07 [facility] Platelet mean volume Auto (B ld) [Entitic vol]Ordered By: Rose Ohara on 06-29-2022 Platelet mean volume (Bld) [Entitic vol] 7.9 fL 6.3-10.7 [facility] Platelets Auto (Bld) [#/Vol] Ordered By: Rose Ohara on 06-29-2022 Platelets (Bld) [#/Vol] 226 10*3/uL 150-450 [facility] Protein [Mass/volume] in Ser um or PlasmaOrdered By: Rose Ohara on 06-29-2022 Protein [Mass/Vol] 7.1 g/dL 6.1-7.9 [facility] RBC Auto (Bld) [#/Vol]Ordere d By: Rose Ohara on 06-29-2022 RBC (Bld) [#/Vol] 5.04 10*6/uL 3.60-5.00 [facility] Serum or plasma alanine mari otransferase measurement without P-5'-P (enzymatic activiOrdered By: Rose Ohara on 06-29-2022 ALT No additional P-5'-P [Catalytic activity/Vol] 27 U/L 10-60 [facility] Serum or plasma albumin/glob ulin mass ratioOrdered By: Rose Ohara on 06-29-2022 Albumin/Globulin [Mass ratio] 1.4 {ratio} [facility] Serum or plasma alkaline danial sphatase measurement (enzymatic activity/volume)Ordered By: Rose Ohara on 06-29-2022 ALP [Catalytic activity/Vol] 56 U/L 32-92 [facility] Serum or plasma aspartate am inotransferase measurement (enzymatic activity/volume)Ordered By: Rose Ohara on 06-29-2022 AST [Catalytic activity/Vol] 26 U/L 10-42 [facility] Serum or plasma calcium kandi urement (mass/volume)Ordered By: Rose Ohara on 06-29-2022 Calcium [Mass/Vol] 10.2 mg/dL 8.2-10.2 [facility] Serum or plasma chloride florentino surement (moles/volume)Ordered By: Rose Ohara on 06-29-2022 Chloride [Moles/Vol] 102 mmol/L 95-[address] [facility] Serum or plasma glucose kandi urement [...] on 06-29-2022 Potassium [Moles/Vol] 4.9 mmol/L 3.5-5.1 [facility] Serum or plasma sodium measu rement (moles/volume)Ordered By: Rose Ohara on 06-29-2022 Sodium [Moles/Vol] 139 mmol/L 136-146 [facility] Serum or plasma total biliru bin measurement (mass/volume)Ordered By: Rose Ohara on 06-29-2022 Bilirubin [Mass/Vol] 1.2 mg/dL 0.3-1.[address] [facility] Serum or plasma total carbon dioxide measurement (moles/volume)Ordered By: Rose Ohara on 06-29-2022 CO2 [Moles/Vol] 24.6 mmol/L 22.0-30.0 [facility] Serum or plasma urea nitroge n measurement (mass/volume)Ordered By: Rose hOara on 06-29-2022 Urea nitrogen [Mass/Vol] 21 mg/dL 07-30 [facility] BNPon 04-29-2022 Natriuretic peptide B (Bld) [Mass/Vol] 280.0 pg/mL Normal <=900.0 [facility] Comment on above: Performed By: #### B CENTRAL SUPPLY SUPERVISOR, BMP #### [facility] [address] [address] [address] Claudia Branch PROF CHEM 8 (BAS METB)on Anion gap [Moles/Vol] 17.9 mmol/L Normal [facility] Comment on above: Performed By: #### B CENTRAL SUPPLY SUPERVISOR, BMP #### [facility] [address] [address] [address] Claudia Branch Calcium [Mass/Vol] 8.9 mg/dL Normal 8.5-10.1 [facility] Comment on above: Performed By: #### B CENTRAL SUPPLY SUPERVISOR, BMP #### [facility] [address] [address] [address] Claudia Branch Chloride [Moles/Vol] 104 mmol/L Normal 98-107 [facility] Comment on above: Performed By: #### B CENTRAL SUPPLY SUPERVISOR, BMP #### [facility] [address] [address] [address] Claudia Branch CO2 [Moles/Vol] 23.2 mmol/L Normal 21.0-32.0 [facility] Comment on above: Performed By: #### B CENTRAL SUPPLY SUPERVISOR, BMP #### [facility] [address] [address] [address] Claudia Branch Creatinine [Mass/Vol] 1.04 mg/dL Critically high 0.55-1.02 [facility] Comment on above: Performed By: #### B CENTRAL SUPPLY SUPERVISOR, BMP #### [facility] [address] [address] [address] Claudia Branch EGFR-AF MALAWIAN >60 Normal >=60 [facility] Comment on above: Performed By: #### B CENTRAL SUPPLY SUPERVISOR, BMP #### [facility] [address] [address] [address] Claudia Branch EGFR-NON AF MALAWIAN 52 mL/min/1.73m2 Critically low >=60 [facility] Comment on above: Performed By: #### B CENTRAL SUPPLY SUPERVISOR, BMP #### [facility] [address] [address] [address] Claudia Branch Glucose [Mass/Vol] 254 mg/dL Critically high 74-106 [facility] Comment on above: Performed By: #### B CENTRAL SUPPLY SUPERVISOR, BMP #### [facility] [address] [address] [address] Claudia Branch Potassium [Moles/Vol] 5.1 mmol/L Normal 3.5-5.1 [facility] Comment on above: Performed By: #### B CENTRAL SUPPLY SUPERVISOR, BMP #### [facility] [address] [address] [address] Claudia Branch Sodium [Moles/Vol] 140 mmol/L Normal 136-145 [facility] Comment on above: Performed By: #### B CENTRAL SUPPLY SUPERVISOR, BMP #### [facility] [address] [address] [address] Claudia Branch Urea nitrogen [Mass/Vol] 25.0 mg/dL Critically high 7.0-18.0 [facility] Comment on above: Performed By: #### B CENTRAL SUPPLY SUPERVISOR, BMP #### [facility] [address] [address] [address] Claudia Branch Urea nitrogen/Creatinine [Mass ratio] 24.0 mg/mg Normal [facility] Comment on above: Performed By: #### B CENTRAL SUPPLY SUPERVISOR, BMP #### [facility] [address] [place], [place] [address] Dr. Claudia Branch BASIC METABOLIC PANELon 06-0 Calcium [Mass/Vol] 9.7 mg/dL Normal 8.6-10.4 [facility] Comment on above: Performed By: #### 8 99, [id number] #### [facility] [address], [address] [place] [address] Qc Lab Technician: Baldemar Jones MD Chloride [Moles/Vol] 106 mmol/L Normal 98-110 [facility] Comment on above: Performed By: #### 8 99, [id number] #### [facility] [address] [address] Qc Lab Technician: Baldemar Jones MD CO2 [Moles/Vol] 24 mmol/L Normal 20-32 [facility] Comment on above: Performed By: #### 8 99, [id number] #### [facility] [address] [address] Qc Lab Technician: Baldemar Jones MD Creatinine [Mass/Vol] 1.32 mg/dL High 0.60-0.[address] [facility] Comment on above: Result Comment: For patients >49 years of age, the reference limit for Creatinine is approximately 13% higher for people identified as -Bangladeshi. Performed By: #### 8 99, [id number] #### [facility] [address] [address] Qc Lab Technician: Baldemar Jones MD eGFR NON-AFR. MALAWIAN 40 mL/min/1.73m2 Low > OR = 60 [facility] Comment on above: Performed By: #### 8 99, [id number] #### [facility] [address] [address] Qc Lab Technician: Baldemar Jones MD GFR/1.73 sq M.predicted among blacks MDRD (S/P/Bld) [Vol rate/Area] 47 mL/min/{1.73_m2} Low > OR = 60 [facility] Comment on above: Performed By: #### 8 99, [id number] #### [facility] of [address], [address] [place] [address] Qc Lab Technician: Baldemar Jones MD Glucose [Mass/Vol] 99 mg/dL Normal 65-99 [facility] Comment on above: Result Comment: Fasting reference interval Performed By: #### 8 99, [id number] #### [facility] of [address], [address] [place] [address] Qc Lab Technician: Baldemar Jones MD Potassium [Moles/Vol] 4.6 mmol/L Normal 3.5-5.[address] [facility] Comment on above: Performed By: #### 8 99, [id number] #### [facility] [address], [address] [place] [address] Qc Lab Technician: Baldemar Jones MD Sodium [Moles/Vol] 143 mmol/L Normal 135-146 [facility] Comment on above: Performed By: #### 8 99, [id number] #### [facility] [address], [address] [place] [address] Qc Lab Technician: Baldemar Jones MD Urea nitrogen [Mass/Vol] 30 mg/dL High 7-25 [facility] Comment on above: Performed By: #### 8 99, [id number] #### [facility] [address], [address] [place] [address] Qc Lab Technician: Baldemar Jones MD Urea nitrogen/Creatinine [Mass ratio] 23 mg/mg High 6-22 [facility] Comment on above: Performed By: #### 8 99, [id number] #### [facility] [address], [address] [place] [address] Qc Lab Technician: Baldemar Jones MD TSHon 04-09-2022 TSH Qn 0.67 m[IU]/L Normal 0.40-4.50 [facility] Comment on above: Performed By: #### 8 99, [id number] #### [facility] [address], [address] [place] [address] Qc Lab Technician: Baldemar Jones MD Albumin [Mass/volume] in Ser um or PlasmaOrdered By: Rose Ohara on 03-25-2022 Albumin [Mass/Vol] 3.8 g/dL 3.2-5.5 [facility] Basophils Auto (Bld) [#/Vol] Ordered By: Rose Ohara on 03-25-2022 Basophils (Bld) [#/Vol] 0.1 10*3/uL 0.0-0.2 [facility] Basophils/100 WBC Auto (Bld) Ordered By: Rose Ohara on 03-25-2022 Basophils/100 WBC (Bld) 1.1 % [facility] Blood hemoglobin measurement (mass/volume)Ordered By: Rose Ohara on 03-25-2022 Hemoglobin (Bld) [Mass/Vol] 14.2 g/dL 11.8-15.4 [facility] Blood leukocytes automated c ount (number/volume)Ordered By: Rose Ohara on 03-25-2022 WBC (Bld) [#/Vol] 7.4 10*3/uL 4.5-11.0 [facility] Creatinine and Glomerular fi ltration rate.predicted panel (S/P/Bld)Ordered By: Rose Ohara on 03-25-2022 Creatinine [Mass/Vol] 1.40 mg/dL 0.44-1.03 [facility] Eosinophils Auto (Bld) [#/Vo l]Ordered By: Rose Ohara on 03-25-2022 Eosinophils (Bld) [#/Vol] 0.2 10*3/uL 0.0-0.45 [facility] Eosinophils/100 WBC Auto (Bl d)Ordered By: Rose Ohara on 03-25-2022 Eosinophils/100 WBC (Bld) 2.6 % [facility] Erythrocyte distribution wid th Auto (RBC) [Ratio]Ordered By: Rose Ohara on 03-25-2022 Erythrocyte distribution width (RBC) [Ratio] 15.1 % 11.9-15.3 [facility] Estimated glomerular filtrat ion rate (GFR) non- AmericanOrdered By: Rose Ohara on 03-25-2022 GFR/1.73 sq M.predicted among non-blacks MDRD (S/P/Bld) [Vol rate/Area] 37 mL/Min [facility] Globulin Calc (S) [Mass/Vol] Ordered By: Rose Ohara on 03-25-2022 Globulin (S) [Mass/Vol] 2.5 g/dL [facility] Hematocrit Auto (Bld) [Volum e fraction]Ordered By: Rose Ohara on 03-25-2022 Hematocrit (Bld) [Volume fraction] 43.3 % 34.0-46.4 [facility] - Hematology and Cell countsOrdered By: Rsoe Ohara on 03-25-2022 Nucleated RBC/100 WBC (Bld) [Ratio] 0.1 % 0-0.5 [facility] Lactate dehydrogenase measur ement (enzymatic activity/volume)Ordered By: Rose Ohara on 03-25-2022 LDH (Unsp spec) [Catalytic activity/Vol] 111 U/L 45-190 [facility] Lymphocytes Auto (Bld) [#/Vo l]Ordered By: Rose Ohara on 03-25-2022 Lymphocytes (Bld) [#/Vol] 1.7 10*3/uL 1.00-4.8 [facility] Lymphocytes/100 WBC Auto (Bl d)Ordered By: Rose Ohara on 03-25-2022 Lymphocytes/100 WBC (Bld) 22.3 % [facility] MCH Auto (RBC) [Entitic mass ]Ordered By: Rose Ohara on 03-25-2022 MCH (RBC) [Entitic mass] 29.0 pg 24.7-34.3 [facility] MCHC Auto (RBC) [Mass/Vol]Or dered By: Rose Ohara on 03-25-2022 MCHC (RBC) [Mass/Vol] 32.8 g/dL 32.0-35.0 [facility] MCV Auto (RBC) [Entitic vol] Ordered By: Rose Ohara on 03-25-2022 MCV (RBC) [Entitic vol] 88.3 fL 80-100 [facility] Monocytes Auto (Bld) [#/Vol] Ordered By: Rose Ohara on 03-25-2022 Monocytes (Bld) [#/Vol] 0.7 10*3/uL 0.0-0.8 [facility] Monocytes/100 WBC Auto (Bld) Ordered By: Rose Ohara on 03-25-2022 Monocytes/100 WBC (Bld) 9.5 % [facility] Neutrophils Auto (Bld) [#/Vo l]Ordered By: Rose Ohara on 03-25-2022 Neutrophils (Bld) [#/Vol] 4.8 10*3/uL 1.8-7.7 [facility] Neutrophils/100 WBC Auto (Bl d)Ordered By: Rose Ohara on 03-25-2022 Neutrophils/100 WBC (Bld) 64.5 % [facility] No Panel InformationOrdered By: Rose Ohara on 03-25-2022 Estimated GFR () 45 mL/Min [facility] Comment on above: GFR estimated refere nce range: According to KDOQI guidelines, <60 ml/min/1.73m2 is sufficient to diagnose a patient with chronic kidney disease. Pharmacy Creatinine Clearance (Chem 39.92 [facility] Platelet mean volume Auto (B ld) [Entitic vol]Ordered By: Rose Ohara on 03-25-2022 Platelet mean volume (Bld) [Entitic vol] 8.2 fL 6.3-10.7 [facility] Platelets Auto (Bld) [#/Vol] Ordered By: Rose Ohara on 03-25-2022 Platelets (Bld) [#/Vol] 232 10*3/uL 150-450 [facility] Protein [Mass/volume] in Ser um or PlasmaOrdered By: Rose Ohara on 03-25-2022 Protein [Mass/Vol] 6.3 g/dL 6.1-7.9 [facility] RBC Auto (Bld) [#/Vol]Ordere d By: Rose Ohara on 03-25-2022 RBC (Bld) [#/Vol] 4.90 10*6/uL 3.60-5.00 [facility] Serum or plasma alanine mari otransferase measurement without P-5'-P (enzymatic activiOrdered By: Rose Ohara on 03-25-2022 ALT No additional P-5'-P [Catalytic activity/Vol] 23 U/L 10-60 [facility] Serum or plasma albumin/glob ulin mass ratioOrdered By: Rose Ohara on 03-25-2022 Albumin/Globulin [Mass ratio] 1.5 {ratio} [facility] Serum or plasma alkaline danial sphatase measurement (enzymatic activity/volume)Ordered By: Rose Ohara on 03-25-2022 ALP [Catalytic activity/Vol] 43 U/L 32-92 [facility] Serum or plasma aspartate am inotransferase measurement (enzymatic activity/volume)Ordered By: Rose Ohara on 03-25-2022 AST [Catalytic activity/Vol] 18 U/L 10-42 [facility] Serum or plasma calcium kandi urement (mass/volume)Ordered By: Rose Ohara on 03-25-2022 Calcium [Mass/Vol] 9.7 mg/dL 8.2-10.2 [facility] Serum or plasma chloride florentino surement (moles/volume)Ordered By: Rose Ohara on 03-25-2022 Chloride [Moles/Vol] 98 mmol/L 95-[address] [facility] Serum or plasma glucose kandi urement [...] on 03-25-2022 Potassium [Moles/Vol] 4.7 mmol/L 3.5-5.1 [facility] Serum or plasma sodium measu rement (moles/volume)Ordered By: Rose Ohara on 03-25-2022 Sodium [Moles/Vol] 139 mmol/L 136-146 [facility] Serum or plasma total biliru bin measurement (mass/volume)Ordered By: Rose Ohara on 03-25-2022 Bilirubin [Mass/Vol] 1.2 mg/dL 0.3-1.[address] [facility] Serum or plasma total carbon dioxide measurement (moles/volume)Ordered By: Rose Ohara on 03-25-2022 CO2 [Moles/Vol] 27.4 mmol/L 22.0-30.0 [facility] Serum or plasma urea nitroge n measurement (mass/volume)Ordered By: Rose Ohara on 03-25-2022 Urea nitrogen [Mass/Vol] 29 mg/dL 07-30 [facility] TSH DL <= 0.005 mIU/L QnOrde red By: Rose Ohara on 03-25-2022 TSH Qn 0.89 m[IU]/L 0.45-5.33 [facility] TSH Qn Serum or plasma thyr oid stimulating hormone (TSH) measurement by high sensitivity met 0.45-5.33 [facility] BASIC METABOLIC PANELon 04-0 BUN/CREATININE RATIO NOT APPLICABLE Normal - [facility] Comment on above: Order Comment: FASTI NG:YES FASTING: YES Performed By: #### 4 96, [id number] #### [facility] [address], [address] [place] [address] Qc Lab Technician: Baldemar Jones MD Calcium [Mass/Vol] 9.4 mg/dL Normal 8.6-10.4 [facility] Comment on above: Order Comment: FASTI NG:YES FASTING: YES Performed By: #### 4 96, [id number] #### [facility] [address] [address] Qc Lab Technician: Baldemar Jones MD Chloride [Moles/Vol] 101 mmol/L Normal 98-110 [facility] Comment on above: Order Comment: FASTI NG:YES FASTING: YES Performed By: #### 4 96, [id number] #### [facility] [address], [address] [place] [address] Qc Lab Technician: Baldemar Jones MD CO2 [Moles/Vol] 31 mmol/L Normal 20-32 [facility] Comment on above: Order Comment: FASTI NG:YES FASTING: YES Performed By: #### 4 96, [id number] #### [facility] [address], [address] [place] [address] Qc Lab Technician: Baldemar Jones MD Creatinine [Mass/Vol] 0.84 mg/dL Normal 0.60-0.93 [facility] Comment on above: Order Comment: FASTI NG:YES FASTING: YES Result Comment: For patients >49 years of age, the reference limit for Creatinine is approximately 13% higher for people identified as -Bangladeshi. Performed By: #### 4 96, [id number] #### [facility] [address], [address] [place] [address] Qc Lab Technician: Baldemar Jones MD eGFR NON-AFR. MALAWIAN 69 mL/min/1.73m2 Normal > OR = 60 [facility] Comment on above: Order Comment: FASTI NG:YES FASTING: YES Performed By: #### 4 96, [id number] #### [facility] [address], [address] [place] [address] Qc Lab Technician: Baldemar Jones MD GFR/1.73 sq M.predicted among blacks MDRD (S/P/Bld) [Vol rate/Area] 80 mL/min/{1.73_m2} Normal > OR = 60 [facility] Comment on above: Order Comment: FASTI NG:YES FASTING: YES Performed By: #### 4 96, [id number] #### [facility] [address], [address] [place] [address] Qc Lab Technician: Baldemar Jones MD Glucose [Mass/Vol] 108 mg/dL High 65-99 [facility] Comment on above: Order Comment: FASTI NG:YES FASTING: YES Result Comment: Fasting reference interval For someone without known diabetes, a glucose value between 100 and 125 mg/dL is consistent with prediabetes and should be confirmed with a follow-up test. Performed By: #### 4 96, [id number] #### [facility] [address], [address] [place] [address] Qc Lab Technician: Baldemar Jones MD Potassium [Moles/Vol] 4.5 mmol/L Normal 3.5-5.3 [facility] Comment on above: Order Comment: FASTI NG:YES FASTING: YES Performed By: #### 4 96, [id number] #### [facility] [address], [address] [place] [address] Qc Lab Technician: Baldemar Jones MD Sodium [Moles/Vol] 143 mmol/L Normal 135-146 [facility] Comment on above: Order Comment: FASTI NG:YES FASTING: YES Performed By: #### 4 96, [id number] #### [facility] [address] [place] [address], [address] [address] Qc Lab Technician: Baldemar Jones MD Urea nitrogen [Mass/Vol] 22 mg/dL Normal 7-25 [facility] Comment on above: Order Comment: FASTI NG:YES FASTING: YES Performed By: #### 4 96, [id number] #### [facility] [address], [address] [place] [address] Qc Lab Technician: Baldemar Jones MD HEMOGLOBIN A1con 02-13-2022 [...] for children. Performed By: #### 4 96, 66162 #### [facility] [address], [address] [place] [address] Qc Lab Technician: Baldemar Jones MD No Panel InformationOrdered By: Bang Nunez on 01-09-2022 Adrenocorticotropic Hormone 39.5 pg/mL 7.2-63.3 [facility] Comment on above: ACTH reference inter bernarda for samples collected between 7 and 10 AM. Performed at: [employer] [id number] Program Analyst: Braxton Austin PhD, Phone: [phone] ACTH reference inter bernarda for samples collected between 7 and10 AM.Performed at: [employer] [id number] Director: Braxton Austin PhD, Phone: [phone] Thyroxine (T4) free [Mass/vo lume] in Serum or PlasmaOrdered By: Bang Nunez on 01-09-2022 Free T4 [Mass/Vol] 0.81 ng/dL 0.61-1.12 [facility] Free T4 [Mass/Vol] Thyroxine (T4) free [Mass/volume] in Serum or Plasma 0.61-1.12 [facility] B TYPE NATRIURETIC PEPTIDE ( BNP)on 12-03-2021 Natriuretic peptide B (Bld) [Mass/Vol] 67 pg/mL Normal <100 [facility] Comment on above: Result Comment: BNP levels increase with age in the general population with the highest values seen in individuals greater than 75 years of age. Reference: J. Am. Ozzie. Cardiol. 2002; 40:976-982. Performed By: #### 3 7386, 78598 #### [facility] [address], [address] [place] [address] Qc Lab Technician: Baldemar Jones MD BASIC METABOLIC PANELon 11-08 Calcium [Mass/Vol] 9.4 mg/dL Normal 8.6-10.4 [facility] Comment on above: Order Comment: FASTI NG:NO FASTING: NO Performed By: #### 3 5086, 34435 #### [facility] [address], [address] [place] [address] Qc Lab Technician: Baldemar Jones MD Chloride [Moles/Vol] 99 mmol/L Normal 98-110 [facility] Comment on above: Order Comment: FASTI NG:NO FASTING: NO Performed By: #### 3 7386, 99580 #### [facility] [address], [address] [place] [address] Qc Lab Technician: Baldemar Jones MD CO2 [Moles/Vol] 32 mmol/L Normal 20-32 [facility] Comment on above: Order Comment: FASTI NG:NO FASTING: NO Performed By: #### 3 7386, 07915 #### [facility] [address], [address] [place] [address] Qc Lab Technician: Baldemar Jones MD Creatinine [Mass/Vol] 0.90 mg/dL Normal 0.60-0.93 [facility] Comment on above: Order Comment: FASTI NG:NO FASTING: NO Result Comment: For patients >49 years of age, the reference limit for Creatinine is approximately 13% higher for people identified as -Bangladeshi. Performed By: #### 3 7386, 35431 #### [facility] [address], [address] [place] [address] Qc Lab Technician: Baldemar Jones MD eGFR NON-AFR. MALAWIAN 64 mL/min/1.73m2 Normal > OR = 60 [facility] Comment on above: Order Comment: FASTI NG:NO FASTING: NO Performed By: #### 3 7386, 31406 #### [facility] [address], [address] [place] [address] Qc Lab Technician: Baldemar Jones MD GFR/1.73 sq M.predicted among blacks MDRD (S/P/Bld) [Vol rate/Area] 75 mL/min/{1.73_m2} Normal > OR = 60 [facility] Comment on above: Order Comment: FASTI NG:NO FASTING: NO Performed By: #### 3 7386, 69309 #### [facility] [place] [address] Qc Lab Technician: Baldemar Jones MD Glucose [Mass/Vol] 174 mg/dL High 65-139 [facility] Comment on above: Order Comment: FASTI NG:NO FASTING: NO Result Comment: Non-fasting reference interval For someone without known diabetes, a glucose value >125 mg/dL indicates that they may have diabetes and this should be confirmed with a follow-up test. Performed By: #### 3 7386, 01293 #### [facility] [address], [address] [place] [address] Qc Lab Technician: Baldemar Jones MD Potassium [Moles/Vol] 3.7 mmol/L Normal 3.5-5.3 [facility] Comment on above: Order Comment: FASTI NG:NO FASTING: NO Performed By: #### 3 7386, 87730 #### [facility] [address], [address] [place] [address] Qc Lab Technician: Baldemar Jones MD Sodium [Moles/Vol] 143 mmol/L Normal 135-146 [facility] Comment on above: Order Comment: FASTI NG:NO FASTING: NO Performed By: #### 3 7386, 22850 #### [facility] [address], [address] [place] [address] Qc Lab Technician: Baldemar Jones MD Urea nitrogen [Mass/Vol] 35 mg/dL High 05-31 [facility] Comment on above: Order Comment: FASTI NG:NO FASTING: NO Performed By: #### 3 7386, 25376 #### [facility] [address], [address] [place] [address] Qc Lab Technician: Baldemar Jones MD Urea nitrogen/Creatinine [Mass ratio] 39 mg/mg High 04-28 [facility] Comment on above: Order Comment: FASTI NG:NO FASTING: NO Performed By: #### 3 7386, 59726 #### [facility] [address], [address] [place] [address] Qc Lab Technician: Baldemar Jones MD ALBUMIN, RANDOM URINE W/CREA TININEon 10-02-2021 ALBUMIN, URINE 0.9 mg/dL Normal See Note: [facility] Comment on above: Result Comment: Refe rence Range: Reference Range Not established Performed By: #### 7 600, 6517, 09522 #### [facility] [address], [address] [place] [address] Qc Lab Technician: Baldemar Jones MD ALBUMIN/CREATININE RATIO, RANDOM [...] category. Performed By: #### 7 600, 6517, 21640 #### [facility] of [address], [address] [place] [address] Qc Lab Technician: Baldemar Jones MD Creatinine (U) [Mass/Vol] 69 mg/dL Normal 20-275 [facility] Comment on above: Performed By: #### 7 600, 6517, 92978 #### [facility] of [address], [address] [place] [address] Qc Lab Technician: Baldemar Jones MD [facility] 10-02-2021 Albumin [Mass/Vol] 4.4 g/dL Normal 3.6-5.1 [facility] Comment on above: Performed By: #### 7 600, 6517, 08132 #### [facility] [address], [address] [place] [address] Qc Lab Technician: Baldemar Jones MD Albumin/Globulin [Mass ratio] 1.7 {ratio} Normal 1.0-2.5 [facility] Comment on above: Performed By: #### 7 600, 6517, 63409 #### [facility] of [address], [address] [place] [address] Qc Lab Technician: Baldemar Jones MD ALP [Catalytic activity/Vol] 50 U/L Normal 37-153 [facility] Comment on above: Performed By: #### 7 600, 6517, 82203 #### [facility] [address], [address] [place] [address] Qc Lab Technician: Baldemar Jones MD ALT [Catalytic activity/Vol] 15 U/L Normal 6-29 [facility] Comment on above: Performed By: #### 7 600, 6517, 02101 #### [facility] [address], [address] [place] [address] Qc Lab Technician: Baldemar Jones MD AST [Catalytic activity/Vol] 15 U/L Normal 10-35 [facility] Comment on above: Performed By: #### 7 600, 6517, 28637 #### [facility] [address], [address] [place] [address] Qc Lab Technician: Baldemar Jones MD Bilirubin [Mass/Vol] 1.2 mg/dL Normal 0.2-1.2 [facility] Comment on above: Performed By: #### 7 600, 65, 37778 #### [facility] [address], [address] [place] [address] Qc Lab Technician: Baldemar Jones MD BUN/CREATININE RATIO NOT APPLICABLE Normal 6-22 [facility] Comment on above: Performed By: #### 7 600, 65, 34086 #### [facility] of [address], [address] [place] [address] Qc Lab Technician: Baldemar Jones MD Calcium [Mass/Vol] 9.6 mg/dL Normal 8.6-10.4 [facility] Comment on above: Performed By: #### 7 600, 65, 92306 #### [facility] [address], [address] [place] [address] Qc Lab Technician: Baldemar Jones MD Chloride [Moles/Vol] 103 mmol/L Normal 98-110 [facility] Comment on above: Performed By: #### 7 600, 6516, 54089 #### [facility] [place] [address] Qc Lab Technician: Baldemar Jones MD CO2 [Moles/Vol] 27 mmol/L Normal 20-32 [facility] Comment on above: Performed By: #### 7 600, 65, 94436 #### [facility] [place] [address] Qc Lab Technician: Baldemar Jones MD Creatinine [Mass/Vol] 0.81 mg/dL Normal 0.60-0.93 [facility] Comment on above: Result Comment: For patients >49 years of age, the reference limit for Creatinine is approximately 13% higher for people identified as -Bangladeshi. Performed By: #### 7 600, 65, 87476 #### [facility] [address], [address] [place] [address] Qc Lab Technician: Baldemar Jones MD eGFR NON-AFR. MALAWIAN 73 mL/min/1.73m2 Normal > OR = 60 [facility] Comment on above: Performed By: #### 7 600, 6517, 56284 #### [facility] [place] [address] Qc Lab Technician: Baldemar Jones MD GFR/1.73 sq M.predicted among blacks MDRD (S/P/Bld) [Vol rate/Area] 85 mL/min/{1.73_m2} Normal > OR = 60 [facility] Comment on above: Performed By: #### 7 600, 6517, 97695 #### [facility] [place] [address] Qc Lab Technician: Baldemar Jones MD Globulin (S) [Mass/Vol] 2.6 g/dL Normal 1.9-3.7 [facility] Comment on above: Performed By: #### 7 600, 65, 32075 #### [facility] [place] [address] Qc Lab Technician: Baldemar Jones MD Glucose [Mass/Vol] 109 mg/dL High 65-99 [facility] Comment on above: Result Comment: Fasting reference interval For someone without known diabetes, a glucose value between 100 and 125 mg/dL is consistent with prediabetes and should be confirmed with a follow-up test. Performed By: #### 7 600, 65, 18152 #### [facility] [place] [address] Qc Lab Technician: Baldemar Jones MD Potassium [Moles/Vol] 4.1 mmol/L Normal 3.5-5.[address] [facility] Comment on above: Performed By: #### 7 600, 6517, 57790 #### [facility] [place] [address] Qc Lab Technician: Baldemar Jones MD Protein [Mass/Vol] 7.0 g/dL Normal 6.1-8.1 [facility] Comment on above: Performed By: #### 7 600, 6517, 64948 #### [facility] [address], [address] [place] [address] Qc Lab Technician: Baldemar Jones MD Sodium [Moles/Vol] 143 mmol/L Normal 135-146 [facility] Comment on above: Performed By: #### 7 600, 6517, 85876 #### [facility] [address], [address] [place] [address] Qc Lab Technician: Baldemar Jones MD Urea nitrogen [Mass/Vol] 19 mg/dL Normal 7-25 [facility] Comment on above: Performed By: #### 7 600, 6517, 15005 #### [facility] [place] [address] Qc Lab Technician: Baldemar Jones MD LIPID PANEL, [address] Cholesterol [Mass/Vol] 106 mg/dL Normal <200 [facility] Comment on above: Order Comment: FASTI NG:YES FASTING: YES Performed By: #### 7 600, 6517, 24847 #### [facility] [address], [address] [place] [address] Qc Lab Technician: Baldemar Jones MD Cholesterol in HDL [Mass/Vol] 44 mg/dL Low > OR = 50 [facility] Comment on above: Order Comment: FASTI NG:YES FASTING: YES Performed By: #### 7 600, 6517, 36474 #### [facility] [place] [address] Qc Lab Technician: Baldemar Jones MD Cholesterol in LDL [...] LDL-C. Theo KNAPP et al. KEZIA. 2013;310(19): 5640-3549 (http://education.EduKoala.Fooala/faq/UAR086) Performed By: #### 7 600, 6517, 04189 #### [facility] [address], [address] [place] [address] Qc Lab Technician: Baldemar Jones MD Cholesterol.total/Cho lesterol in HDL [Mass ratio] 2.4 {ratio} Normal <5.0 [facility] Comment on above: Order Comment: FASTI NG:YES FASTING: YES Performed By: #### 7 600, 6517, 37319 #### [facility] [address], [address] [place] [address] Qc Lab Technician: Baldemar Jones MD NON HDL CHOLESTEROL 62 mg/dL (calc) Normal <130 [facility] Comment on above: Order Comment: FASTI NG:YES FASTING: YES Result Comment: For patients with diabetes plus 1 major ASCVD risk factor, treating to a non-HDL-C goal of <100 mg/dL (LDL-C of <70 mg/dL) is considered a therapeutic option. Performed By: #### 7 600, 6517, 48987 #### [facility] [address], [address] [place] [address] Qc Lab Technician: Baldemar Jones MD Triglyceride [Mass/Vol] 185 mg/dL High <150 [facility] Comment on above: Order Comment: FASTI NG:YES FASTING: YES Performed By: #### 7 600, 6517, 36124 #### [facility] [address], [address] [place] [address] Qc Lab Technician: Baldemar Jones MD Laboratory - Chemistry and C hemistry - challengeOrdered By: Rose Ohara on 08-17-2021 Lipase [Catalytic activity/Vol] 27.0 U/L 22-51 [facility] Random cortisol measurementO rdered By: Rose Ohara on 08-17-2021 Cortisol [Mass/Vol] 10.1 ug/dL [facility] Comment on above: Reference range: AM 6 - 24 ug/dl PM <10 ug/dl Reference range: AM 6 - 24 ug/dl PM <10 ug/dl Cortisol [Mass/Vol] Random cortisol measurement [facility] Comment on above: Reference range: AM 6 - 24 ug/dl PM <10 ug/dl Creatinine (Bld) [Mass/Vol]O rdered By: Bang Nunez on 06-19-2021 Creatinine [Mass/Vol] 0.6 mg/dL 0.6-1.3 [facility] Comment on above: ER/ESD physician is notified/shown all ISTAT results. Critical values may be confirmed by laboratory testing if deemed necessary by ER attending doctor. ER/ESD physician is notified/shown all ISTAT results.Critical values may be confirmed by laboratory testing ifdeemed necessary by ER attending doctor. Creatinine [Mass/Vol] Whole blood creati nine measurement 0.6-1.3 [facility] Comment on above: ER/ESD physician is notified/shown all ISTAT results.Critical values may be confirmed by laboratory testing ifdeemed necessary by ER attending doctor. No Panel InformationOrdered By: Bang Nunez on 06-19-2021 POC Estimated GFR > 60 [facility] Comment on above: GFR estimated refere nce range: According to KDOQI guidelines, <60 ml/min/1.73m2 is sufficient to diagnose a patient with chronic kidney disease. POC Estimated GFR Non- Amer > 60 [facility] Glucose Glucometer (BldC) [M ass/Vol]Ordered By: Bang Nunez on 06-17-2021 Glucose [Mass/Vol] 124 mg/dL [facility] Comment on above: Random Glucose Refer ence Range is dependent on time and content of last meal. Glucose of more than 200 mg/dL in a nonstressed, ambulatory subject supports the diagnosis of Diabetes Mellitus. Glucose [Mass/Vol] Capillary blood gluc ose measurement by glucometer (mass/volume) [facility] Comment on above: Random Glucose Refer ence Range is dependent on time and content of last meal. Glucose of more than 200 mg/dL in a nonstressed, ambulatory subject supports the diagnosis of Diabetes Mellitus. COVID-19 Positive/Negativeon 02-13-2021 SARS-CoV-2 (COVID-19) N gene KIP+probe Ql (Resp) Negative Negative [facility] Comment on above: Reference: Negative Testing for SARS-CoV-2 by RT-PCR This test was developed and its performance characteristics determined by [employer] and validated at the [facility]. This test has not been [...] developed and its performance characteristics determined by [employer] and validated at the [facility]. This test has not been [...] (COVID-19) RNA KIP+probe Ql (Unsp spec) N/A [facility] No Panel Informationon 12-22 Bedside Glucose Comment Glu2: cleaned meter [facility] Dermatopathologyon 1 Dermatopathology [facility] [address] [place] [id number] DERMATOPATHOLOGY REPORT Name:TOSHA MCNEAL Rec #. [id number] Location: Date of Procedure: 11/28/2020 Race: Date [...] control slides stain appropriately. The prior biopsy [id number] was received and reviewed. The morphology is [...] determined by the Department of Pathology at [facility]. The FDA does not require [...] appropriately. Electronically Signed Out By JANNETH PONCE MD/KSH By the signature on this report, the individual or group listed as making the Final Interpretation/Diagnosis certifies that they have reviewed this case. Clinical History: A: Non sentinal lymph node. Excision. B: [place] Lymph node count 1005. (Hospital Outpatient) Specimens Submitted As: A: NODE, RIGHT AXILLARY NON-SENTINEL LYMPH NODE B: NODE, RIGHT AXILLARY SENTINEL LYMPH NODE COUNT 1005 Gross Description: A: Received in formalin is a ackerman-yellow irregularly shaped piece of tissue measuring [id number]. The specimen is inked and embedded in toto. B: Received in formalin is one ackerman-yellow irregularly shaped piece of tissue measuring [id number]. The specimen is inked and embedded in toto in three blocks. ink/12/01/2020 Microscopic Description: A. Microscopic examination reveals a lymph node with normal architecture. No melanoma is seen on H and E staining. Melan-A, SOX-10, and HMB45 stains are unremarkable. All control slides stain appropriately. Normal [facility] Comment on above: Performed By: #### D #### Dermatopathology GLUCOSE-POCTon 11-28-2020 Glucose [Mass/Vol] 136 mg/dL High 74 - 99 [facility] Comment on above: Performed By: #### G WAYNE #### [facility] [address] [place] [address] Glucose [Mass/Vol] 135 mg/dL High 74 - 99 [facility] Work Phone: Comment on above: Performed By: #### G WAYEN #### [address] [address] History and Physical - Surge ry > 30 dayson 11-28-2020 History and Physical - Surgery > 30 days History of Present Illness: History Present Illness: Reason for surgery: melanoma 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 COMPARISON: None. ACCESSION NUMBER(S): [id number] ORDERING CLINICIAN: DIALLO BERGER TECHNIQUE: DIVISION OF [...] lymph node localization to the right axilla. Drying Room Supervisor images were sent to PACS. I personally reviewed the images/study and I agree with the findings as stated. This study was interpreted at [facility], [place], [place]. Electronically signed by: RICKI SALGADO MD [facility] Patient Profile - Adult v2on 11-28-2020 Patient Profile - Adult v2 This report has been cancelled. Normal [facility] Patient Profile - Preop v2on 11-28-2020 Patient Profile - Preop v2 Profile: Initial Info: How to be AddressedSUZANNE(1) Spoken Language PreferredEnglish (1) Source of Informationpatient Are you currently using the Personal Electronic Health Record [facility] St[facility] Reason for Admissioninjection in my lymph nodes Primary Contact Name and Numberharry-spouse Limitations on Visitors/Phone Callsonly spouse may visit Patient Belongingsremains with patient; patient educated regarding responsibility for personal items Patient Belongings Remaining with Patientclothing; vision aids; dental appliance Medications Brought to Hospital[facility] Health: Weight in kg94.2 kilogram(s) Weight in gem641.6 pound(s) Weight Methodactual (measured) Scale Typechair Height [...] Arrangementshouse Lives Withspouse Resource/Environmental Concernsnone [facility] Anticipated at Transitionnone Substance: Current or [...] instruction; written material Cultural Considerationsnone Developmental Considerationsnone Yazidism Considerationsnone Other learner availableno [place] RiskPatient location auto qualifies him/her for HIGH RISK. Are there any cultural, spiritual, adventist practices/values/needs that are important for us to [...] Profile - Adult v2 28-Nov-2020 07:19 Normal [facility] Preop Checkliston 11-28-2020 Preop Checklist Preop Checklist: Preop Checklist: Arrival [id number] Arrival Time07:00 Procedure Typeinjection of right arm excision scar Heart Rate65 beats per minute Respiratory Rate16 breath per minute Blood Pressure Tmttsdmm609 mm/Hg Blood Pressure Onmjygjew25 mm/Hg NPO [id number] 10:30 ID Band Onyes Allergy Bandno known [...] 28-Nov-2020 07:26 by Evelin Lovett (PERLA) Normal [facility] CORONAVIRUS 2019, SCREEN ASY MPTOMATICon 11-26-2020 SARS-CoV-2 (COVID-19) RNA KIP+probe Ql (Unsp spec) Not detected Normal Not Detected [facility] Comment on above: Result Comment: . This [...] patient management decisions. Fact sheet for providers: https://www.fda.gov/media/616986/download Fact sheet for patients: https://www.fda.gov/media/547633/download This test has received FDA Emergency Use Authorization (EUA) and has been verified by [facility] ([facility]). This test is only authorized for the duration of time that circumstances exist to justify the authorization of the emergency use of in vitro diagnostic tests for the detection of SARS-CoV-2 virus and/or diagnosis of COVID-19 infection under section 564(b)(1) of the Act, 21 U.S.C. 360bbb-3(b)(1), unless the authorization is terminated or revoked sooner. [facility] is certified under CLIA-88 as qualified to perform high complexity testing. Testing is performed in the [facility] laboratories located at [address] [place] [address]. Performed By: #### C OVSC #### [place] [address] Lab Specimen Source Nasal, Nasopharyngeal Normal [facility] Comment on above: Performed By: #### C OVSC #### [place] [address] Coronavirus 2019 RNA by PCR, Screening Asymptomticon 11-26-2020 Coronavirus 2019 RNA by PCR, Screening Asymptomtic NOT DETECTED See Below [facility] Work Phone: Comment on above: SOURCE: Nasal, [...] make patient management decisions.Fact sheet for providers: https://www.fda.gov/media/999135/downloadFact sheet for patients: https://www.fda.gov/media/147231/downloadThis test has received FDA Emergency Use Authorization (EUA) and has been verified by [facility] ([facility]). This test is only authorized for the duration of time that circumstances exist to justify the authorization of the emergency use of in vitro diagnostic tests for the detection of SARS-CoV-2 virus and/or diagnosis of COVID-19 infection under section 564(b)(1) of the Act, 21 U.S.C. 360bbb-3(b)(1), unless the authorization is terminated or revoked sooner. [facility] is certified under CLIA-88 as qualified to perform high complexity testing. Testing is performed in the [facility] laboratories located at [address] [place] [address]. Covid 19 Resultson 1 SARS-CoV-2 (COVID-19) RNA [...] You may also be contacted by the [facility] to see if any of your [...] or Naproxen (Aleve) can also be used. Yawi-ksp-cpnujxx cough and cold medicines can be used according to the instructions on the package. Some jxks-cww-dsaxanu medicines also contain acetaminophen. Make sure you [...] water are not available, use alcohol-based hand detective bowling alley. Avoid touching your eyes, nose, and mouth [...] ibuprofen (Motrin) (more content not included)... Normal [facility] BASIC METABOLIC PANELon 11-07 Anion gap [Moles/Vol] 15 mmol/L Normal 10 - 20 [facility] Comment on above: Performed By: #### B MP #### [address] [place] [address] Calcium [Mass/Vol] 9.7 mg/dL Normal 8.6 - 10.3 [facility] Comment on above: Performed By: #### B MP #### [address] [address] Chloride [Moles/Vol] 99 mmol/L Normal 98 - 107 [facility] Comment on above: Performed By: #### B MP #### [address] [address] Creatinine [Mass/Vol] 0.64 mg/dL Normal 0.50 - 1.05 [facility] Comment on above: Performed By: #### B MP #### [address] [id number] GFR- AM. >60 Normal >60 [facility] [place] on above: Result Comment: CALC ULATIONS OF ESTIMATED GFR ARE PERFORMED USING THE MDRD STUDY EQUATION FOR THE IDMS-TRACEABLE CREATININE METHODS. CLIN CHEM 2007;53:766-72 Performed By: #### B MP #### [address] [address] GFR-NON AM. >60 Normal >60 [facility] Comment on above: Performed By: #### B MP #### [address] [address] Glucose [Mass/Vol] 105 mg/dL High 74 - 99 [facility] Comment on above: Performed By: #### B MP #### [address] [address] HCO3 (Bld) [Moles/Vol] 30 mmol/L Normal 21 - 32 [facility] Comment on above: Performed By: #### B MP #### [address] [address] Potassium [Moles/Vol] 3.7 mmol/L Normal 3.5 - 5.3 [facility] Comment on above: Performed By: #### B MP #### [facility] [address] [place] [address] Sodium [Moles/Vol] 140 mmol/L Normal 136 - 145 [facility] Comment on above: Performed By: #### B MP #### [facility] [address] [place] [address] Urea nitrogen [Mass/Vol] 18 mg/dL Normal 6 - 23 [facility] Comment on above: Performed By: #### B MP #### [facility] [address] [place] [address] Metabolic Panelon 11-21-2020 Anion gap [Moles/Vol] 15 mmol/L 10 - 20 [facility] Work Phone: Comment on above: Ordering Provider: Daniela REBOLLEDO [address] Calcium [Mass/Vol] 9.7 mg/dL 8.6 - 10.3 [facility] Work Phone: Comment on above: Ordering Provider: Daniela REBOLLEDO [address] Chloride [Moles/Vol] 99 mmol/L 98 - 107 [facility] Work Phone: Comment on above: Ordering Provider: Daniela REBOLLEDO [address] CO2 [Moles/Vol] 30 mmol/L 21 - 32 [facility] Work Phone: Comment on above: Ordering Provider: Daniela REBOLLEDO [address] Creatinine [Mass/Vol] 0.64 mg/dL See Below [facility] Work Phone: Comment on above: Reference Range: 0.5 0 - 1.05 Ordering Provider: Daniela REBOLLEDO [address] Glucose [Mass/Vol] 105 mg/dL above high threshold 74 - 99 VO[facility]xuycnd[facility] Work Phone: Comment on above: Ordering Provider: Daniela REBOLLEDO [address] Potassium [Moles/Vol] 3.7 mmol/L 3.5 - 5.3 [facility] Work Phone: Comment on above: Ordering Provider: Daniela REBOLLEDO [address] Sodium [Moles/Vol] 140 mmol/L 136 - 145 [facility] cinda-Se [facility] Work Phone: [phone] Comment on above: Ordering Provider: Daniela Starks Urea nitrogen [Mass/Vol] 18 mg/dL 6 - 23 HR-Degyzya-Pp [facility] Work Phone: [phone] Comment on above: Ordering Provider: Daniela Starks Otheron 11-21-2020 >60 >60 XF-Dxitvcp-Zf [facility] Work Phone: [phone] Comment on above: CALCULATIONS OF ASHA MATED GFR ARE PERFORMED USING THE MDRD STUDY EQUATION FOR THE IDMS-TRACEABLE CREATININE METHODS. CLIN CHEM 2007;53:766-72 Ordering Provider: Daniela Hernandez19 428 1 PT-Qzslvrg-Nl [facility] Work Phone: [phone] SP-Xjtppds-TuMc[facility] Work Phone: [phone] Sinus rhythm with 1s t degree AV block UT-Pyxqniq-Il[facility] Work Phone: [phone] [email or web address] ?RetrieveTestByDateTime?P yurzhqUU=[email or web address]&Date=1 03-07-2021&Time=11%3a49%3a 35%3a00&TestType=ECG&Site =12&OutputType=PDF&Ext=PD F PP-Cdwnipi-Mh [facility] Work Phone: [phone] 1 CY-Huacqsg-Hp [facility] Work Phone: [phone] ZW-Kgeeeim-Rf [facility] Work Phone: [phone] LO-Kfcohom-Eo [facility] Work Phone: [phone] 1 YH-Amadnuz-Zj [facility] Work Phone: [phone] LH-Fnxjnis-En [facility] Work Phone: [phone] WZ-Hatkkpz-Gd [facility] Work Phone: [phone] BQ-Pnbsoed-Gt [facility] Work Phone: [phone] GY-Oaoswuc-Vf [facility] Work Phone: [phone] JE-Dtojyqq-Aw [facility] Work Phone: [phone] QT-Fvwdojw-TcUniversity [facility] Work Phone: [phone] WH-Hyyojdo-Zn [facility] Work Phone: Abnormal LB-Ytxjbwq-QbUniversity of [facility] Health Work Phone: Initial Visit [...] be. We will plan for [place] [facility] [place] the new [place]. Preadmission testing will [...] visit. Right arm melanoma History of Present Divwozu06-zeyk-lyk woman referred to me by Dr. Nunez [...] history never smoker, , lives in the [facility] Medications include Ocuvite eyedrops, alendronate, [...] Time Vital Sign Value Performing Clinician Facility 07-30-2025 11:15-0400 Diastolic blood pressure 61 mm[Hg] [employer] DO Work Phone: [facility] 07-30-2025 11:15-0400 Heart rate 64 /min [employer] DO Work Phone: [facility] 07-30-2025 11:15-0400 Respiratory rate 18 /min [employer] DO Work Phone: [facility] 07-30-2025 11:15-0400 SaO2% (BldA) [Mass fraction] 97 % [employer] DO Work Phone: [facility] 07-30-2025 11:15-0400 Systolic blood pressure 127 mm[Hg] Wild Barcheyachtng DO Work Phone: [facility] 07-30-2025 11:00-0400 Inhaled oxygen flow rate 2 L/min [employer] DO Work Phone: [facility] 07-30-2025 10:00-0400 Body temperature 97.9 [degF] Wild Furlong DO Work Phone: [facility] 07-30-2025 07:15-0400 Body height 152.4 cm Wild Furlong DO Work Phone: [facility] 07-30-2025 07:15-0400 Body weight 96 kg Wild Furlong DO Work Phone: [facility] 07-17-2025 08:54-0400 Body height 152.4 cm Wild Furlong DO Work Phone: [facility] [employer] [facility] 07-17-2025 08:54-0400 Body mass index (BMI) [Ratio] 40.82 kg/m2 Wild Furlong DO Work Phone: [facility] [employer] [facility] 07-17-2025 08:54-0400 Body temperature 98.2 [degF] Wild Furlong DO Work Phone: [facility] [employer] [facility] 07-17-2025 08:54-0400 Body weight 94.8 kg Wild Furlong DO Work Phone: [facility] [employer] 07-17-2025 08:54-0400 Diastolic blood pressure 82 mm[Hg] Wild Furlong DO Work Phone: [facility] [employer] [facility] 07-17-2025 08:54-0400 Heart rate 63 /min Wild Furlong DO Work Phone: [facility] [employer] [facility] 07-17-2025 08:54-0400 Respiratory rate 18 /min Wild Furlong DO Work Phone: [facility] [employer] [facility] 07-17-2025 08:54-0400 SaO2% (BldA) [Mass fraction] 96 % Wild Furlong DO Work Phone: [facility] [employer] [facility] 07-17-2025 08:54-0400 Systolic blood pressure 130 mm[Hg] Wild Furlong DO Work Phone: [facility] 05-14-2025 13:56-0400 Body height 152.4 cm Wild Furlong DO Work Phone: [facility] 05-14-2025 13:56-0400 Body mass index (BMI) [Ratio] 40.74 kg/m2 Wild Furlong DO Work Phone: [facility] 05-14-2025 13:56-0400 Body temperature 99.39 [degF] Wild Furlong DO Work Phone: [facility] 05-14-2025 13:56-0400 Body weight 94.62 kg Wild Furlong DO Work Phone: [facility] 05-14-2025 13:56-0400 Diastolic blood pressure 52 mm[Hg] Wild Furlong DO Work Phone: [facility] 05-14-2025 13:56-0400 Heart rate 71 /min Wild Furlong DO Work Phone: [facility] 05-14-2025 13:56-0400 Respiratory rate 18 /min Wild Furlong DO Work Phone: [facility] 05-14-2025 13:56-0400 SaO2% (BldA) [Mass fraction] 96 % Wild Furlong DO Work Phone: [facility] 05-14-2025 13:56-0400 Systolic blood pressure 122 mm[Hg] Wild Furlong DO Work Phone: [facility] 05-07-2025 20:18-0400 Body height 152.4 cm Pmh 2 [facility] 05-07-2025 20:18-0400 Body mass index (BMI) [Ratio] 40.43 kg/m2 Pmh 2 [facility] 05-07-2025 20:18-0400 Body weight 93.89 kg Pmh 2 [facility] 05-03-2025 09:20-0400 Body height 152.4 cm Sarah Ansari APRN-[employer]UM[employer] [facility] Phone[facility] 05-03-2025 09:20-0400 Body mass index (BMI) [Ratio] 40.58 kg/m2 Sarah Ansari APRN-MOSHGIACH Work Phone: [facility] 05-03-2025 09:20-0400 Body temperature 99.5 [degF] Sarah Ansari APRN-MOSHGIACH Work Phone: [facility] [employer] 05-03-2025 09:20-0400 Body weight 94.26 kg Sarah Ansari APRN-MOSHGIACH Work Phone: [facility] 05-03-2025 09:20-0400 Diastolic blood pressure 58 mm[Hg] Sarah Ansari APRN-MOSHGIACH Work Phone: [facility] 05-03-2025 09:20-0400 Heart rate 71 /min Sarah Ansari APRN-AUTUM[employer] Work Phone: [facility] [employer] 05-03-2025 09:20-0400 Respiratory rate 20 /min Sarah Ansari APRN-AUTUM[employer] Work Phone: [facility] 05-03-2025 09:20-0400 SaO2% (BldA) [Mass fraction] 96 % Sarah Ansari APRN-AUT[employer] Work Phone: [facility] 05-03-2025 09:20-0400 Systolic blood pressure 132 mm[Hg] Sarah Ansari APRN-MOSHGIACH Work Phone: [facility] 04-24-2025 11:27-0400 Body height 152.4 cm Wild Furlong DO Work Phone: [facility] 04-24-2025 11:27-0400 Body mass index (BMI) [Ratio] 42.18 kg/m2 Wild Furlong DO Work Phone: [facility] 04-24-2025 11:27-0400 Body temperature 98.4 [degF] Wild Furlong DO Work Phone: [facility] 04-24-2025 11:27-0400 Body weight 97.98 kg Wild Pendletonlong DO Work Phone: [facility] 04-24-2025 11:27-0400 Diastolic blood pressure 72 mm[Hg] Wild Pendletonlong DO Work Phone: [facility] 04-24-2025 11:27-0400 Heart rate 67 /min Wild Pendletonlong DO Work Phone: [facility] 04-24-2025 11:27-0400 Respiratory rate 18 /min Wild Pendletonlong DO Work Phone: [facility] 04-24-2025 11:27-0400 SaO2% (BldA) [Mass fraction] 94 % Wild Hernandezng DO Work Phone: [facility] 04-24-2025 11:27-0400 Systolic blood pressure 156 mm[Hg] Wild Hernandezng DO Work Phone: [facility] 04-13-2025 11:19-0400 Body temperature 98.2 [degF] Rajni Cline MD Work Phone: [employer] 04-13-2025 09:09-0400 Heart rate 63 /min Rajni Cline MD Work Phone: [employer] 04-13-2025 09:09-0400 Respiratory rate 16 /min Rajni Cline MD Work Phone: [employer] 04-13-2025 09:09-0400 SaO2% (BldA) [Mass fraction] 96 % Rajni Cline MD Work Phone: [employer] 04-13-2025 08:15-0400 Diastolic blood pressure 44 mm[Hg] Rajni Cline MD Work Phone: [employer] 04-13-2025 08:15-0400 Systolic blood pressure 131 mm[Hg] Rajni Cline MD [facility] Phone[facility] [employer] 04-10-2025 12:25-0400 Body height 152.4 cm Rajni Cline MD Work Phone: [facility] [employer] 04-10-2025 12:25-0400 Body mass index (BMI) [Ratio] 41.01 kg/m2 Rajni Cline MD Work Phone: [facility] [employer] 04-10-2025 12:25-0400 Body weight 95.25 kg Rajni Cline MD Work Phone: [facility] [employer] 03-21-2025 11:44-0400 Body temperature 98.6 [degF] Wild Furlong DO Work Phone: [facility] [employer] [facility] 03-21-2025 11:44-0400 Diastolic blood pressure 64 mm[Hg] Wild Furlong DO Work Phone: [facility] [employer] [facility] 03-21-2025 11:44-0400 Heart rate 72 /min Wild Furlong DO Work Phone: [facility] [employer] [facility] 03-21-2025 11:44-0400 Systolic blood pressure 116 mm[Hg] Wild Furlong DO Work Phone: [facility] [employer] [facility] 03-10-2025 11:25-0400 Body temperature 98.8 [degF] Carlos Garcia MD Work Phone: [facility] 03-10-2025 11:25-0400 Diastolic blood pressure 57 mm[Hg] Carlos Garcia MD Work Phone: [facility] [employer] 03-10-2025 11:25-0400 Heart rate 80 /min Carlos Garcia MD Work Phone: [facility] [employer] 03-10-2025 11:25-0400 Respiratory rate 27 /min Carlos Garcia MD Work Phone: [facility] [employer] 03-10-2025 11:25-0400 SaO2% (BldA) [Mass fraction] 98 % Carlos Garcia MD Work Phone: [facility] [employer] 03-10-2025 11:25-0400 Systolic blood pressure 125 mm[Hg] Carlos Garcia MD Work Phone: [facility] [employer] 03-08-2025 05:01-0400 Body mass index (BMI) [Ratio] 44.35 kg/m2 Carlos Garcia MD Work Phone: [facility] [employer] 03-08-2025 05:01-0400 Body weight 103 kg Carlos Garcia MD Work Phone: [facility] 03-03-2025 11:30-0400 Body height 152.4 cm Carlos Garcia MD Work Phone: [facility] 12-26-2024 12:59-0500 Body temperature 97.5 [degF] Wild Furlong DO Work Phone: [facility] 12-26-2024 12:59-0500 Diastolic blood pressure 64 mm[Hg] Wild Furlong DO Work Phone: [facility] 12-26-2024 12:59-0500 Heart rate 82 /min Wild Furlong DO Work Phone: [facility] 12-26-2024 12:59-0500 Respiratory rate 16 /min Wild Furlong DO Work Phone: [facility] 12-26-2024 12:59-0500 SaO2% (BldA) [Mass fraction] 98 % Wild Furlong DO Work Phone: [facility] 12-26-2024 12:59-0500 Systolic blood pressure 162 mm[Hg] Wild Furlong DO Work Phone: [facility] 08-16-2024 15:18-0400 Body height 152.4 cm Giuseppe HART Work Phone: [facility] 08-16-2024 15:18-0400 Body mass index (BMI) [Ratio] 43.79 kg/m2 Giuseppe HART Work Phone: [facility] 08-16-2024 15:18-0400 Body temperature 97.2 [degF] Giuseppe HART Work Phone: [facility] 08-16-2024 15:18-0400 Body weight 101.7 kg Giuseppe HART Work Phone: [facility] 08-16-2024 15:18-0400 Diastolic blood pressure 64 mm[Hg] Giuseppe Jama APRN-AUTUM[employer] Work Phone: [facility] 08-16-2024 15:18-0400 Heart rate 62 /min Giuseppe HART Work Phone: [facility] 08-16-2024 15:18-0400 Respiratory rate 18 /min Giuseppe HART Work Phone: [facility] 08-16-2024 15:18-0400 SaO2% (BldA) [Mass fraction] 95 % Giuseppe HART Work Phone: [facility] 08-16-2024 15:18-0400 Systolic blood pressure 140 mm[Hg] Giuseppe HART Work Phone: [facility] 07-16-2024 08:24-0400 Body height 152.4 cm Wild PendletonD-Share Work Phone: [facility] 07-16-2024 08:24-0400 Body mass index (BMI) [Ratio] 42.89 kg/m2 Wild HernandezRiboxx Work Phone: [facility] 07-16-2024 08:24-0400 Body temperature 98.49 [degF] Wild Furlong DO Work Phone: [facility] [employer] [facility] 07-16-2024 08:24-0400 Body weight 99.61 kg Wild Furlong DO Work Phone: [facility] [employer] [facility] 07-16-2024 08:24-0400 Diastolic blood pressure 60 mm[Hg] Wild Furlong DO Work Phone: [facility] 07-16-2024 08:24-0400 Heart rate 57 /min Wild Furlong DO Work Phone: [facility] [employer] [facility] 07-16-2024 08:24-0400 Respiratory rate 18 /min Wild Furlong DO Work Phone: [facility] 07-16-2024 08:24-0400 SaO2% (BldA) [Mass fraction] 98 % Wild Furlong DO Work Phone: [facility] 07-16-2024 08:24-0400 Systolic blood pressure 120 mm[Hg] Wild Furlong DO Work Phone: [facility] [employer] [facility] 03-20-2024 11:03-0400 Body height 152.4 cm Wild Furlong DO Work Phone: [facility] [employer] [facility] 03-20-2024 11:03-0400 Body mass index (BMI) [Ratio] 42.11 kg/m2 Wild Furlong DO Work Phone: [facility] 03-20-2024 11:03-0400 Body weight 97.8 kg Wild Furlong DO Work Phone: [facility] [employer] [facility] 03-20-2024 11:03-0400 Diastolic blood pressure 82 mm[Hg] Wild Furlong DO Work Phone: [facility] 03-20-2024 11:03-0400 Systolic blood pressure 142 mm[Hg] Wild Furlong DO Work Phone: [facility] [employer] [facility] 01-11-2024 10:39-0500 Body height 152.4 cm Wild Furlong DO Work Phone: [facility] [employer] 01-11-2024 10:39-0500 Body mass index (BMI) [Ratio] 41.81 kg/m2 Wild Furlong DO Work Phone: [facility] [employer] 01-11-2024 10:39-0500 Body temperature 98.2 [degF] Wild Furlong DO Work Phone: [facility] [employer] [facility] 01-11-2024 10:39-0500 Body weight 97.11 kg Wild Furlong DO Work Phone: [facility] [employer] [facility] 01-11-2024 10:39-0500 Diastolic blood pressure 78 mm[Hg] Wild Furlong DO Work Phone: [facility] [employer] 01-11-2024 10:39-0500 Heart rate 65 /min Wild Furlong DO Work Phone: [facility] [employer] 01-11-2024 10:39-0500 SaO2% (BldA) [Mass fraction] 92 % Wild Furlong DO Work Phone: [facility] [employer] 01-11-2024 10:39-0500 Systolic blood pressure 130 mm[Hg] Wild Furlong DO Work Phone: [facility] [employer] [facility] 12-23-2023 09:37-0500 Body height 152.4 cm Wild Furlong DO Work Phone: [facility] [employer] 12-23-2023 09:37-0500 Body mass index (BMI) [Ratio] 41.46 kg/m2 Wild Furlong DO Work Phone: [facility] [employer] [facility] 12-23-2023 09:37-0500 Body temperature 98.49 [degF] Wild Furlong DO Work Phone: [facility] [employer] [facility] 12-23-2023 09:37-0500 Body weight 96.3 kg Wild Furlong DO Work Phone: [facility] [employer] [facility] 12-23-2023 09:37-0500 Diastolic blood pressure 50 mm[Hg] Wild Furlong DO Work Phone: [facility] 12-23-2023 09:37-0500 Heart rate 65 /min Wild Furlong DO Work Phone: [facility] 12-23-2023 09:37-0500 SaO2% (BldA) [Mass fraction] 95 % Wild Furlong DO Work Phone: [facility] 12-23-2023 09:37-0500 Systolic blood pressure 140 mm[Hg] Wild Furlong DO Work Phone: [facility] 12-15-2023 10:17-0500 Body height 152.4 cm DO Wild Furlong Work Phone: [facility] 12-15-2023 10:17-0500 Body mass index (BMI) [Ratio] 41 kg/m2 DO Wild Furlong Work Phone: [facility] 12-15-2023 10:17-0500 Body temperature 97.3 [degF] DO Wild Furlong Work Phone: [facility] 12-15-2023 10:17-0500 Body weight 95.25 kg DO Wild Furlong Work Phone: [facility] 12-15-2023 10:17-0500 Diastolic blood pressure 73 mm[Hg] DO Wild Furlong Work Phone: [facility] 12-15-2023 10:17-0500 Heart rate 55 /min DO Wild Furlong Work Phone: [facility] 12-15-2023 10:17-0500 Respiratory rate 16 /min DO Wild Furlong Work Phone: [facility] 12-15-2023 10:17-0500 Systolic blood pressure 150 mm[Hg] DO Wild Furlong Work Phone: [facility] 08-11-2023 10:23-0400 Body temperature 97.2 [degF] DO Wild Furlong Work Phone: [facility] 08-11-2023 10:23-0400 Body weight 99.79 kg DO Wild Furlong Work Phone: [facility] 08-11-2023 10:23-0400 Diastolic blood pressure 77 mm[Hg] DO Wild Furlong Work Phone: [facility] 08-11-2023 10:23-0400 Heart rate 56 /min DO Wild Furlong Work Phone: [facility] 08-11-2023 10:23-0400 Respiratory rate 16 /min DO Wild Furlong Work Phone: [facility] 08-11-2023 10:23-0400 SaO2% (BldA) [Mass fraction] 95 % DO Wild Furlong Work Phone: [facility] 08-11-2023 10:23-0400 Systolic blood pressure 155 mm[Hg] DO Wild Furlong Work Phone: [facility] 04-13-2023 09:19-0400 Body temperature 97.9 [degF] DO Wild Furlong Work Phone: [facility] 04-13-2023 09:19-0400 Body weight 99.33 kg DO Wild Furlong Work Phone: [facility] 04-13-2023 09:19-0400 Diastolic blood pressure 67 mm[Hg] DO Wild Furlong Work Phone: [facility] 04-13-2023 09:19-0400 Heart rate 64 /min DO Wild Furlong Work Phone: [facility] 04-13-2023 09:19-0400 Respiratory rate 16 /min DO Wild Furlong Work Phone: [facility] 04-13-2023 09:19-0400 SaO2% (BldA) [Mass fraction] 97 % DO Wild Furlong Work Phone: [facility] 04-13-2023 09:19-0400 Systolic blood pressure 148 mm[Hg] DO Wild Furlong Work Phone: [facility] 09-23-2022 08:25-0500 Body temperature 97.8 [degF] DO Wild Furlong Work Phone: [facility] 09-23-2022 08:25-0500 Body weight 99.9 kg DO Wild Furlong Work Phone: [facility] 09-23-2022 08:25-0500 Diastolic blood pressure 66 mm[Hg] DO Wild Furlong Work Phone: [facility] 09-23-2022 08:25-0500 Heart rate 68 /min DO Wild Furlong Work Phone: [facility] 09-23-2022 08:25-0500 Respiratory rate 16 /min DO Wild Furlong Work Phone: [facility] 09-23-2022 08:25-0500 SaO2% (BldA) [Mass fraction] 94 % DO Wild Furlong Work Phone: [facility] 09-23-2022 08:25-0500 Systolic blood pressure 153 mm[Hg] DO Wild Furlong Work Phone: [facility] 07-01-2022 10:32-0400 Body temperature 97.8 [degF] DO Wild Furlong Work Phone: [facility] 07-01-2022 10:32-0400 Body weight 99.33 kg DO Wild Furlong Work Phone: [facility] 07-01-2022 10:32-0400 Diastolic blood pressure 75 mm[Hg] DO Wild Furlong Work Phone: [facility] 07-01-2022 10:32-0400 Heart rate 55 /min DO Wild Furlong Work Phone: [facility] 07-01-2022 10:32-0400 Respiratory rate 16 /min DO Wild Furlong Work Phone: [facility] 07-01-2022 10:32-0400 SaO2% (BldA) [Mass fraction] 98 % DO Wild Furlong Work Phone: [facility] 07-01-2022 10:32-0400 Systolic blood pressure 154 mm[Hg] DO Wild Furlong Work Phone: [facility] 03-31-2022 13:24-0400 Body temperature 97 [degF] DO Wild Furlong Work Phone: [facility] 03-31-2022 13:24-0400 Body weight 98.42 kg DO Wild Furlong Work Phone: [facility] 03-31-2022 13:24-0400 Diastolic blood pressure 74 mm[Hg] DO Wild Furlong Work Phone: [facility] 03-31-2022 13:24-0400 Heart rate 62 /min DO Wild Furlong Work Phone: [facility] 03-31-2022 13:24-0400 Respiratory rate 16 /min DO Wild Furlong Work Phone: [facility] 03-31-2022 13:24-0400 SaO2% (BldA) [Mass fraction] 96 % DO Wild Furlong Work Phone: [facility] 03-31-2022 13:24-0400 Systolic blood pressure 150 mm[Hg] DO Wild Furlong Work Phone: [facility] 10-01-2020 10:47-0500 Body height 157.99 cm DO Wild Furlong Work Phone: [facility] 1950 00:00-0500 >na< Obdulio Flowers Dept. of [facility] matology Encounters Encounter Date Encounter Type Care Provider Facility Start: 08-12-2025 End: 08-12-2025 ambulatory Shavon Mustafa [place] Start: 08-07-2025 End: 08-07-2025 Refill Tressa Campbell CMA [facility] Comment on above: Hypertension associa jin with stage 3a chronic kidney 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 ([facility]) Start: 08-06-2025 End: 08-07-2025 Refill Wild G Furlong DO Work Phone: [facility] Comment on above: Hypertension associa jin with stage 3a chronic kidney 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 ([facility]) Start: 07-30-2025 End: 07-30-2025 Admission to same day surgery center Shavon Fragoso MD -[facility] [place] Start: 07-30-2025 End: 07-30-2025 ambulatory Wild Furlong DO Work Phone: [facility] Work Phone: Start: 07-29-2025 End: 07-30-2025 Orders Only Wild G Furlong DO Work Phone: [facility] Start: 07-19-2025 End: 07-19-2025 Orders Only Wild G Furlong DO Work Phone: [facility] Comment on above: Degeneration of inte rvertebral disc of lumbar region with discogenic back pain (Primary Dx) Start: 07-17-2025 End: 07-17-2025 Office outpatient visit 25 minutes Wild G Furlong DO Work Phone: [facility] Comment on above: Hypertension associa jin with stage 3a chronic kidney 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 ([facility]) (Primary Dx); Degeneration of intervertebral disc of lumbar region with discogenic back pain; Morbid obesity ([facility]) Start: 07-17-2025 End: 07-17-2025 ambulatory [place] [facility] Start: 07-16-2025 End: 07-16-2025 Patient encounter procedure Shavon Fragoso MD -Pre-Surgical Testing Work Phone: Start: 07-16-2025 End: 07-16-2025 ambulatory Wild Centeno DO Work Phone: [facility] Work Phone: Start: 07-16-2025 Encounter for preprocedural laboratory examination Shavon Mustafa [facility] Start: 07-04-2025 End: 07-04-2025 Orders Only Wild Centeno DO Work Phone: [facility] Start: 06-27-2025 End: 06-27-2025 ambulatory [facility] Start: 06-19-2025 End: 06-19-2025 ambulatory Shavon Mustafa Facility:[facility] Start: 06-19-2025 End: 06-19-2025 Patient encounter procedure Shavon Mustafa [facility] Start: 06-18-2025 End: 06-18-2025 Telephone encounter Orders Support User Transcribe [facility] - Sleep Disorders Comment on above: Sleep Lab (Pap Order ) Start: 06-17-2025 End: 06-17-2025 ambulatory MARIE GRYA [facility] Start: 06-17-2025 End: 06-17-2025 Office outpatient new 45 minutes Marie Gray MD Work Phone: [facility] Comment on above: RONEN (obstructive sle ep apnea) (Primary Dx); Class 3 severe obesity due to excess calories with serious comorbidity and body mass index (BMI) of 40.0 to 44.9 in adult ([facility] Essential hypertension, benign; Nocturia Start: 06-11-2025 End: 06-11-2025 Patient encounter procedure Shavon Fragoso MD -Ultrasound [facility] Work Phone: Start: 06-11-2025 End: 06-11-2025 ambulatory Wildlewis Pendletoncarito DO Work Phone: [facility] Work Phone: Start: 05-20-2025 End: 05-20-2025 Telephone encounter Dee Dee Horton MD Work Phone: [facility] Start: 05-15-2025 End: 05-15-2025 Refill Wild Centeno DO Work Phone: [facility] Start: 05-14-2025 End: 05-14-2025 Office outpatient visit 25 minutes Wild Centeno DO Work Phone: [facility] Comment on above: History of cholecyst ectomy (Primary Dx); Diarrhea, unspecified type; Morbid obesity ([facility]); Lumbar spondylosis Start: 05-14-2025 End: 05-14-2025 ambulatory [facility] Start: 05-07-2025 End: 05-07-2025 Clinical Support Wild Centeno DO Work Phone: [facility] - Sleep Disorders Comment on above: Hypersomnia; Excessive daytime sleepiness Start: 05-03-2025 End: 05-03-2025 Telephone encounter Genny Valdovinos [facility] Call Franchesca lorenzo Comment on above: Results Start: 05-03-2025 End: 05-03-2025 Office outpatient visit 25 minutes Sarah Ansari APRN-AUTUMN Work Phone: [facility] Comment on above: S/P cholecystectomy (Primary Dx); Type 2 diabetes mellitus with stage 2 chronic kidney disease, with long-term current use of insulin ([facility]); Localized swelling of left foot; Irregular heart beat; Other post infection and related fatigue syndromes; Abnormal CBC; Morbid obesity ([facility]); Excessive daytime sleepiness Start: 05-03-2025 End: 05-03-2025 ambulatory SARAH L ELAN [facility] Start: 04-30-2025 End: 04-30-2025 Telephone encounter Wild Pendletondesijorje DO Work Phone: [facility] - Sleep Disorders Comment on above: Sleep Lab (PSG) Start: 04-29-2025 End: 04-29-2025 Orders Only Wild Centeno DO Work Phone: [facility] Comment on above: Hypersomnia (Primary Dx); Excessive daytime sleepiness Start: 04-25-2025 End: 04-25-2025 Telephone encounter Wild Centeno DO Work Phone: [facility] Comment on above: Sleep Lab ([facility]ST) Start: 04-24-2025 End: 04-24-2025 Transitional care manage srvc 14 day discharge Wild Centeno DO Work Phone: [facility] Comment on above: S/P laparoscopic cho lecystectomy (Primary Dx); Morbid obesity ([facility]); Hypersomnia; Type 2 diabetes mellitus with stage 2 chronic kidney disease, with long-term current use of insulin ([facility]); Physical deconditioning; Screening for depression Start: 04-24-2025 End: 04-24-2025 ambulatory [facility] Start: 04-15-2025 End: 04-30-2025 Telephone encounter Chelsi Dee RN Work Phone: [facility] Comment on above: Transition Of Care Start: 04-10-2025 End: 04-13-2025 Evaluation and management of inpatient Rajni Cline MD Work Phone: [facility] Onc/Med Surg Comment on above: Acute cholecystitis due to biliary calculus (Primary Dx); Cholecystitis Start: 04-07-2025 End: 04-07-2025 Refill Wild Centeno DO Work Phone: [facility] Start: 03-27-2025 End: 03-27-2025 Refill Amanda Poole [facility] Start: 03-26-2025 End: 03-28-2025 ambulatory [facility] Start: 03-21-2025 End: 03-21-2025 Transitional care manage srvc 14 day discharge Wild Centeno DO Work Phone: [facility] Comment on above: Acute cholecystitis (Primary Dx); Essential hypertension; Hypokalemia; Type 2 diabetes mellitus with stage 3a chronic kidney disease, with long-term current use of insulin ([facility]); Morbid obesity ([facility]); 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 ([facility]) Start: 03-21-2025 End: 03-21-2025 [facility] Start: 03-13-2025 End: 03-18-2025 Telephone encounter Tressa Campbell [facility] Start: 03-11-2025 End: 03-11-2025 Telephone encounter Chelsi Dee RN Work Phone: [facility] Comment on above: Transition Of Care Start: 03-03-2025 End: 03-10-2025 Evaluation and management of inpatient Carlos Garcia MD Work Phone: [facility] Stepdown Start: 03-03-2025 End: 03-03-2025 ambulatory [facility] DO Work Phone: [facility] Work Phone: Start: 03-03-2025 End: 03-03-2025 [facility] Work [facility] Start: 02-19-2025 End: 02-19-2025 ambulatory [facility] Start: 02-12-2025 End: 02-12-2025 Refill Wild Pendletonlong DO Work Phone: [facility] Start: 02-08-2025 End: 02-08-2025 Refill Wild Pendletonlong DO Work Phone: [facility] Start: 01-17-2025 End: 01-17-2025 ambulatory [facility] Start: 01-16-2025 End: 01-16-2025 ambulatory Rose Lev Facility:[facility] Start: 01-07-2025 ambulatory Rose Lev Facility:[facility] [place] Start: 01-03-2025 End: 01-03-2025 ambulatory [facility] Start: 12-31-2024 ambulatory Rose Lev Facility:[facility] [place] Start: 12-26-2024 Registered Recurring Wild Motley pilo DO Work Phone: [facility] Acute Work Phone: Start: 12-26-2024 End: 12-26-2024 ambulatory Wild Pendletonlong DO Work Phone: [facility] Work Phone: Start: 12-26-2024 End: 12-26-2024 Patient encounter procedure Wildlewis Pendletonlong DO Work Phone: [facility] Ambulatory Work Phone: Start: 12-11-2024 End: 12-11-2024 External Result Encounter Rose Ohara MD Work Phone: [facility] External Department Unsolicited Start: 12-11-2024 End: 12-11-2024 External Result Encounter Rose Ohara MD Work Phone: [facility] External Department Unsolicited Start: 08-20-2024 End: 08-20-2024 Refill Wild Centeno DO [facility] Phone: [facility] Comment on above: Hypertension associa jin with stage 3a chronic kidney 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 ([facility]) Start: 08-16-2024 End: 08-16-2024 Office outpatient visit 15 minutes [facility] TELEVISION HOST-MOSHGIACH Work Phone: [facility] Comment on above: Lumbar paraspinal mu scle spasm (Primary Dx); Lumbar back pain; Need for influenza vaccination Start: 08-16-2024 End: 08-16-2024 ambulatory [facility] Start: 07-18-2024 End: 07-18-2024 Orders Only Wild Centeno DO Work Phone: [facility] Start: 07-16-2024 End: 07-16-2024 ambulatory WILD Jailene [facility] Start: 07-16-2024 End: 07-16-2024 Office outpatient visit 25 minutes Wild Centeno DO Work Phone: [facility] Comment on above: Hypertension associa jin with stage 3a chronic kidney 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 ([facility]) (Primary Dx); Type 2 diabetes mellitus with stage 3a chronic kidney disease, with long-term current use of insulin ([facility]); Enlarged pituitary gland ([facility]); Morbid obesity ([facility]) Start: 06-14-2024 End: 06-14-2024 Orders Only Wild Hernandezng DO Work Phone: [facility] Start: 06-13-2024 End: 06-14-2024 [facility] Start: 06-07-2024 End: 06-07-2024 ambulatory WILD G FURLONG [facility] Start: 05-22-2024 End: 05-22-2024 Orders Only Wild [...] 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 ([facility]) Start: 05-14-2024 End: 05-14-2024 Refill Wild Centeno [...] Family Medicine Start: 02-02-2024 Refill Irene Schrader TELEVISION HOST-REHAB TECH Work Phone: [facility] Start: 01-15-2024 Orders Only Wild recinos DO Work Phone: [facility] Start: 01-11-2024 End: 01-11-2024 ambulatory WILD CENTENO [facility] Start: 01-11-2024 End: 01-11-2024 Office outpatient visit 25 minutes Wild Centeno DO Work Phone: [facility] Comment on above: Type 2 diabetes deepak itus with stage 3a chronic kidney disease, with long-term current use of insulin ([facility]) (Primary Dx); Gout, unspecified cause, unspecified chronicity, unspecified site; Mixed hyperlipidemia; Morbid obesity ([facility]); 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 ([facility]) Start: 12-28-2023 End: 12-29-2023 ambulatory ZABRINA CORTEZ Not Available Start: 12-26-2023 End: 12-26-2023 ambulatory ZABRINA CORTEZ Not Available Start: 12-26-2023 Refill Wild recinos DO Work Phone: [facility] Start: 12-23-2023 End: 12-23-2023 Office outpatient visit 15 minutes Wild Centeno DO Work Phone: [facility] Comment on above: Acute gout due to re nal impairment involving toe of right foot (Primary Dx); 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 ([facility] Start: 12-21-2023 End: 12-22-2023 ambulatory ZABRINA CORTEZ Not Available Start: 12-21-2023 End: 12-21-2023 Admission to same day surgery center Zabrina Cortez [facility]K [facility]EWARD [facility] Comment on above: Aftercare following left knee joint replacement surgery (Primary Dx); Acute pain of left knee; Stiffness of left knee; Primary osteoarthritis of left knee Start: 12-21-2023 End: 12-21-2023 ambulatory Zabrina Cortez [facility] Start: 12-21-2023 Bamboo flowsheet Zabrina Cortez [facility] Start: 12-21-2023 Bamboo flowsheet Zabrina Cortez [facility] Start: 12-19-2023 End: 12-19-2023 Admission to same day surgery center Shan Haskins [facility] Comment on above: Aftercare following left knee joint replacement surgery (Primary Dx); Acute pain of left knee; Stiffness of left knee; Primary osteoarthritis of left knee Start: 12-19-2023 End: 12-20-2023 ambulatory Shan Haskins [facility] Start: 12-19-2023 Bamboo flowsheet Shan Haskins PT A [facility] Start: 12-19-2023 Bamboo flowsheet Shan Haskins PT A [facility] Start: 12-15-2023 End: 12-15-2023 ambulatory DO Wild Furlong Work Phone: [facility] Work Phone: Start: 12-15-2023 End: 12-15-2023 Patient encounter procedure DO Wild Furlong [facility] Work [facility]: Start: 12-15-2023 Registered Recurring DO Wild Furlong [facility] Work [facility]: Start: 12-14-2023 End: 12-14-2023 ambulatory ZABRINA CORTEZ Not Available Start: 12-14-2023 End: 12-14-2023 Admission to same day surgery center Zabrina Cortez [facility] Comment on above: Aftercare following left knee joint replacement surgery (Primary Dx); Acute pain of left knee; Stiffness of left knee; Primary osteoarthritis of left knee Start: 12-14-2023 End: 12-14-2023 ambulatory Zabrina Cortez [facility] Start: 12-14-2023 Bamboo flowsheet Zabrina Tothy [facility] Start: 12-14-2023 Bamboo flowsheet Zabrina Tothy [facility] Start: 12-13-2023 Registered Recurring DO Wild Furlong [facility] Work [facility]: Start: 12-13-2023 End: 12-13-2023 ambulatory DO Wild Furlong Work Phone: [facility] Work Phone: Start: 12-13-2023 End: 12-13-2023 Patient encounter procedure DO Wild Furlong Work Phone: [facility] [place] Work Phone: Start: 2023 End: 2023 ambulatory ZABRINA KELBLEY Not Available Start: 12-07-2023 End: 12-08-2023 [...] 11-09-2023 End: 11-09-2023 ambulatory Aly Higgins MD Facility:[facility] Start: 11-08-2023 End: 11-08-2023 ambulatory ZABRINA KELBLEY Not Available Start: 11-04-2023 End: 11-04-2023 ambulatory ZABRINA KELBLEY Not Available Start: 11-02-2023 End: 11-02-2023 ambulatory ZABRINA KELBLEY Not Available Start: 11-01-2023 End: 11-02-2023 ambulatory ZABRINA KELBLEY Not Available Start: 10-28-2023 End: 10-28-2023 ambulatory VIRGINIA BRINK Not Available Start: 10-26-2023 End: 10-26-2023 ambulatory VIRGINIA BRINK Not Available Start: 10-24-2023 End: 10-24-2023 ambulatory DB Daniela GIGI Not Available Start: 10-03-2023 End: 10-04-2023 ambulatory [facility] Start: 09-26-2023 End: 09-26-2023 ambulatory DB Daniela LOPEZTON Not Available Start: 09-08-2023 End: 09-13-2023 ambulatory ALY Gordon [facility]ONALDO [facility] Start: 08-11-2023 End: 08-11-2023 ambulatory DO Wild Centeno Work Phone: [facility] Work Phone: Start: 08-11-2023 End: 08-11-2023 Registered Recurring DO Wild Furlong [facility] Work [facility]: Start: 04-13-2023 End: 04-13-2023 ambulatory DO Wild Furlong Work Phone: [facility] Work Phone: Start: 04-13-2023 End: 04-13-2023 Registered Recurring DO Wild Furlong [facility] Work [facility]: Start: 03-03-2023 End: 03-04-2023 ambulatory WILD G FURLONG Facility:[facility] Start: 09-23-2022 End: 09-23-2022 ambulatory DO Wild Furlong Work Phone: [facility] Work Phone: Start: 09-23-2022 End: 09-23-2022 Registered Recurring DO Wild Furlong [facility] Start: 08-26-2022 End: 08-27-2022 ambulatory WILD G FURLONG Facility:[facility] Start: 08-11-2022 End: 08-12-2022 ambulatory WILD G FURLONG Facility:[facility] Start: 07-01-2022 End: 07-01-2022 Registered Recurring DO Wild Furlong [facility] Start: 04-29-2022 End: 04-30-2022 ambulatory MOHAMAD ALGHOTHANI Facility:[facility] Start: 03-31-2022 End: 03-31-2022 Registered Recurring DO Wild Furlong [facility] Start: 12-16-2020 Obdulio Flowers Dep tPablo of Dermatology Procedures Date Procedure Procedure Detail Performing Clinician Start: 07-30-2025 Cystoscopy Wild Centeno DO Work Phone: Start: 07-17-2025 Hemoglobin glycosylated a1c Wild arzate DO Work Phone: Start: 07-17-2025 Adult depression screening assessment Wild Centeno DO Work Phone: Start: 07-16-2025 Urine culture Wild Centeno DO Work Phone: Start: 06-11-2025 Ultrasonography of bilateral kidneys Wild Centeno DO Work Phone: Start: 05-14-2025 Adult depression screening assessment Wild Centeno DO Work Phone: Start: 05-03-2025 Ecg routine ecg w/least 12 lds w/i&r Sarah Ansari TELEVISION HOST-M[employer]HGIACH Work Phone: Start: 05-03-2025 Follow-up visit Follow-up SARAH ANSARI Start: 05-03-2025 Adult depression screening assessment Sarah Chaparrouch TELEVISION HOST-[employer]HGIACH Work Phone: Start: 04-24-2025 Adult depression screening [...] TO MG FOR LOW K Radha Morris TELEVISION HOST - [place] Work Phone: Start: 04-12-2025 Glucose blood reagent strip Rajni alva MD Work Phone: Start: 04-12-2025 Radiologic exam chest single view Melida Alvarenga DO Work Phone: Start: 04-12-2025 HOME O2 EVAL (DESATURATION SCREEN) Radha Morris TELEVISION HOST - [place] Work Phone: Start: 04-12-2025 Basic metabolic panel [...] Phone: Start: 03-08-2025 Hepatic function panel Rosalio nash DO Work Phone: Start: 03-07-2025 Glucose blood [...] Start: 03-06-2025 Glucose blood reagent strip Carlos Gacria MD Work Phone: Start: 03-06-2025 Glucose blood reagent strip Carlos Garcia MD Work Phone: Start: 03-06-2025 End: 03-06-2025 Assay of magnesium Rosalio Packer [...] view Rosalio Packer DO Work Phone: Start: End: 03-05-2025 Assay of lactate Erin Reynolds [...] Phone: Start: 03-04-2025 Glucose blood reagent strip aCrlos Garcia MD Work Phone: Start: 03-04-2025 Assay [...] 12-11-2024 CT of thorax with contrast Wild Furlon g DO Work Phone: Start: 09-04-2024 Diabetic retinal eye exam Wild Furlong DO Work Phone: Start: 08-16-2024 Adult depression screening assessment Giuseppe Jama APRN-MOSHGIACH Work Phone: Start: 07-16-2024 Microalbumin [Mass/volume] in Urine by Test strip Wild Furlong DO Work Phone: Start: 06-07-2024 Mammography Wild Furlong DO Work Phone: Start: 03-20-2024 Adult depression screening [...] Work Phone: Start: 05-13-2023 Mammography Zabrina Cortez [facility]ARD Start: 04-07-2023 Ultrasonography of limb DO Wild Furlon g Work Phone: Start: 03-14-2023 Microalbumin [Mass/volume] in Urine by Test strip Wildlewis Pendletonlong DO Work Phone: Start: 12-21-2022 Computed tomography of abdomen and pelvis with contrast DO Wild Furlong Work Phone: Start: 12-21-2022 CT of thorax with contrast DO Wild Fur long Work Phone: Start: 09-21-2022 Ultrasonography of limb DO Wildlewis Pendletonlon g Work Phone: Start: 06-29-2022 Computed tomography of abdomen and pelvis with contrast DO Wild Furlong Work Phone: Start: 06-29-2022 CT of thorax with contrast DO Wild Fur long Work Phone: Start: 03-29-2022 Ultrasonography of limb DO Wildlewis Pendletonlon g Work Phone: Start: 12-28-2021 Computed tomography of abdomen and pelvis with contrast DO Wild Furlong Work Phone: Start: 12-28-2021 CT of thorax with contrast DO Wild Fur long Work Phone: Start: 09-24-2021 Ultrasonography of limb DO Wildlewis Pendletonlon g Work Phone: Start: 06-19-2021 MRI of head DO Wild Furlong Work Phone: Start: 06-17-2021 Positron emission tomography with computed tomography DO Wild Furlong Work Phone: Start: 03-27-2021 Ultrasound procedure on topographic region DO Wild Furlong Work Phone: Start: 12-16-2020 Obdulio Flowers Bilateral tubal ligation Nicole hy Lue Cataract surgery Wild Furl elena History of cholecystectomy S/P l aparoscopic cholecystectomy Wild G Furlong DO Work Phone: History of cholecystectomy S/P cholecyste ctomy Sarah L Elan TELEVISION HOST-MOSHGIACH Work Phone: History of cholecystectomy Histo ry of cholecystectomy Wild Centeno DO Work Phone: History of operative procedure on knee Shavon Mustafa History of repair of musculotendinous cuff of shoulder Shavon Mustafa Ligation of fallopian tube D josette Centeno Phacoemulsification of cataract with intraocular lens implantation Shavon Mustafa Repair of musculoten dinous cuff of shoulder Wild Centeno Plan of Treatment Date Care Activity Detail Author Start: 07-17-2026 Depression Screening Depression Scre ening [facility] Start: 07-17-2026 Fall Risk Screening Fall Risk Screen [facility] Start: 07-17-2026 Tobacco Screening Tobacco Screening [facility] Start: 05-14-2026 Depression Screening Depression Scre ening [facility] Start: 05-14-2026 Fall Risk Screening Fall Risk Screen [facility] Start: 05-14-2026 Tobacco Screening Tobacco Screening [facility] Start: 05-07-2026 Tobacco Screening Tobacco Screening [facility] Start: 05-03-2026 Depression Screening Depression Scre ing [facility] Start: 05-03-2026 Fall Risk Screening Fall Risk Screen [facility] Start: 05-03-2026 Tobacco Screening Tobacco Screening [facility] Start: 04-24-2026 Depression Screening Depression Scre ening [facility] Start: 04-24-2026 Fall Risk Screening Fall Risk Screen [facility] Start: 04-24-2026 Tobacco Screening Tobacco Screening [facility] Start: 04-13-2026 GFR test (Diabetes, CKD 3-4, OR last GFR 15-59) GFR test (Diabetes, CKD 3-4, OR last GFR 15-59) [facility] Start: 04-13-2026 Hemoglobin A1c measurement A1C test (Diabetic or Prediabetic) [facility] Start: 03-25-2026 Screening for malign ant neoplasm of colon [facility] Start: 03-21-2026 Depression Screening Depression Scre ening [facility] Start: 03-21-2026 Tobacco Screening Tobacco Screening [facility] Start: 03-10-2026 [facility] Start: 11-07-2025 DTaP,Tdap and Td Vac cines (2 - Td or Tdap) DTaP,Tdap and Td Vaccines (2 - Td or Tdap) [facility] Comment on above: Postponed from 09/18 (Vaccine Not Available) Start: 10-16-2025 End: 10-16-2025 Patient encounter procedure 10/16/2025 8:30 AM EST [facility] [address] [place] [address] [place] [id number] Wild Centeno DO [address] [facility] [place] [address] [facility] Start: 09-04-2025 Glaucoma screening Diabetic Op hthalmology Exam [facility] Start: 08-20-2025 Tobacco Screening Tobacco Screening [facility] Start: 08-16-2025 Adult BMI Screening Adult BMI Screen ing [facility] Start: 08-16-2025 Depression Screening Depression Scre ening [facility] Start: 08-16-2025 Fall Risk Screening Fall Risk Screen ing [facility] Start: 08-16-2025 Tobacco Screening Tobacco Screening [facility] Start: 08-07-2025 Administration of varicella zoster vaccine Zoster (Shingles) Vaccine (1 of 2) [facility] Comment on above: Postponed from 03/09 (Vaccine Not Available) Start: 08-07-2025 Influenza vaccination Influenza Vacc ine [facility] Comment on above: Postponed from 07/08 (Vaccine Not Available) Start: 08-02-2025 End: 08-02-2025 Patient encounter procedure 08/02/2025 11:45 AM EDT Office [facility] Medicine [address] [place] [address] [place] [id number] Wild Centeno, DO [address], [place] [address] [facility] Internal Medicine - Family Medicine Start: 07-30-2025 [facility] Start: 07-30-2025 [facility] Start: 07-17-2025 End: 07-17-2025 Patient encounter procedure 07/17/2025 9:00 AM EDT Office Visit [facility] Internal Medicine - Family Medicine [address] [place] [address] [place] [address] Wild Centeno DO [address], [place] [address] [facility] Start: 07-16-2025 Adult BMI Screening Adult BMI Screen ing [facility] Start: 07-16-2025 Bacteria identified in Urine by Culture Urine Culture [facility] Start: 07-16-2025 Tobacco Screening Tobacco Screening [facility] Start: 07-16-2025 Urine screening for protein Urine Microalbumin [facility] Start: 07-16-2025 Urine culture [facility] Start: 07-08-2025 Influenza vaccination Influenza Vacc ine [facility] Start: 06-24-2025 End: 06-24-2025 Patient encounter procedure 06/24/2025 9:30 AM EDT Office Visit [facility] Internal Medicine - Family Medicine [address] [place] [address] [place] [address] Wild Centeno DO [address], [place] [address] [facility] - [facility] Start: 06-17-2025 End: 06-17-2025 Telemedicine consultation with patient 06/17/2025 10:00 AM EDT Telemedicine [facility] Pulmonary/Sleep Medicine [address] [address] Marie Gray MD [address] [facility] [address] Left practice 04/06 [place] [address] [facility] Pulmonary/Sleep Medicine Start: 06-07-2025 Screening for malign ant neoplasm of breast Mammogram [facility] Start: 05-14-2025 End: 05-14-2025 Patient encounter procedure 05/14/2025 2:00 PM EDT Office Visit [facility] Internal Medicine - Family Medicine [address] [place] [address] Wild Centeno, DO [address], [place] [address] [facility] Internal Medicine - Family Medicine Start: 05-07-2025 End: 05-07-2025 Clinical Support 05/07/2025 8:00 PM EDT Clinical Support [facility] [address] [place] [address] Wild Centeno, DO [address], [place] [address] [facility] Start: 05-03-2025 End: 05-03-2025 Clinical Support 05/03/2025 7:30 PM EDT Clinical Support [facility] [address] [place] [address] Wild Centeno, DO [address], [place] [address] [facility] Sleep Disorders Start: 05-03-2025 End: 05-03-2026 US.doppler Lower extremity vein - left Vas venous duplex lwr single left Vascular Ultrasound STAT Localized swelling of left foot Expected: 05/03/2025, Expires: 05/03/2026 [facility] Comment on above: Expected: 05/03/2025 , Expires: 05/03/2026 Start: 04-23-2025 End: 04-23-2025 Patient encounter procedure 04/23/2025 12:45 PM EDT Office Visit [facility] General Surgery [address] [facility] [address] [place] [address] s/p lap jt 04/10/25 [facility] General Surgery Comment on above: s/p lap jt 04/10/25 Start: 03-26-2025 End: 03-26-2025 Patient encounter procedure 03/26/2025 10:40 AM EDT Office Visit [facility] Internal Medicine - Family Medicine [address] [place] [address] [facility] Internal Medicine - Family Medicine Start: 03-21-2025 End: 03-21-2025 Patient encounter procedure 03/21/2025 11:00 AM EDT Office Visit [facility] Internal Medicine - Family Medicine [address] [place] [address] Wild Centeno, DO [address], [facility] [place] [address] [facility] Internal Medicine - Family Medicine Start: 03-20-2025 Adult BMI Screening Adult BMI Screen ing [facility] Start: 03-20-2025 Depression Screening Depression Scre ing [facility] Start: 03-20-2025 Fall Risk Screening Fall Risk Screen ing [facility] Start: 03-20-2025 Medicare Annual Well ness Visit Medicare Annual Wellness Visit [facility] Start: 03-03-2025 Bacteria identified in Urine by Culture Urine Culture [facility] Start: 03-03-2025 Urine culture [facility] Start: 01-10-2025 Adult BMI Screening Adult BMI Screen ing [facility] Start: 01-10-2025 Depression Screening Depression Scre ening [facility] Start: 01-10-2025 Fall Risk Screening Fall Risk Screen ing [facility] Start: 01-10-2025 Tobacco Screening Tobacco Screening [facility] Start: 12-26-2024 Patient referral [facility] Work Phone: Start: 12-23-2024 Adult BMI Screening Adult BMI Screen ing [facility] Start: 12-23-2024 Depression Screening Depression Scre ening [facility] Start: 12-23-2024 Fall Risk Screening Fall Risk Screen ing [facility] Start: 12-23-2024 Tobacco Screening Tobacco Screening [facility] Start: 2024 Respiratory Syncytia l Virus (RSV) or age 60 yrs+ (1 - 1-dose 75+ series) Respiratory Syncytial Virus (RSV) or age 60 yrs+ (1 - 1-dose 75+ series) [facility] [employer] Start: 2024 [employer] Start: 09-12-2024 Adult BMI Screening Adult BMI Screen ing [facility] Start: 09-12-2024 [facility] Start: 09-12-2024 Tobacco Screening Tobacco Screening [facility] Start: 09-01-2024 Glaucoma screening Diabetic Op hthalmology Exam [facility] Start: 07-16-2024 End: 07-16-2024 Patient encounter procedure 07/16/2024 8:30 AM EDT Office Visit [facility] Internal Medicine - Family Medicine [address] [place] [address] Wild Centeno, DO [address], [facility] [place] [address] [facility] - Family [facility] Start: 07-12-2024 Fall Risk Screening Fall Risk Screen ing [facility] Start: 07-08-2024 COVID-19 Vaccine ( season) COVID-19 Vaccine ( season) [facility] Start: 07-08-2024 COVID-19 Vaccine ( season) COVID-19 Vaccine ( season) [facility] Start: 07-08-2024 Influenza vaccination [facility] Start: 07-08-2024 Aldair Esqueda [facility] Start: 06-07-2024 End: 06-07-2024 Patient encounter procedure 06/07/2024 11:30 AM EDT Appointment [facility] [address] [facility] [address] Wild Centeno, DO [address], [facility] [place] [address] [facility] Start: 05-28-2024 End: 05-28-2024 Patient encounter procedure 05/28/2024 11:30 AM EDT Appointment [facility] [address] [place] [id number] [facility] Start: 05-22-2024 End: 05-22-2025 DBT Breast - bilateral screening Mammography screening bilateral with CAD Imaging Routine Encounter for screening mammogram for malignant neoplasm of breast Expected: 05/22/2024, Expires: 05/22/2025 [facility] Work Phone: Comment on above: Expected: 05/22/2024 , Expires: 05/22/2025 Start: 05-13-2024 Screening for malign ant neoplasm of breast Mammogram [facility] Start: 03-20-2024 End: 03-20-2024 Patient encounter procedure 03/20/2024 11:10 AM EDT Office Visit [facility] Internal Medicine - Family Medicine [address] [place] [address] [facility] Internal Medicine - Family Medicine Start: 03-14-2024 Diabetic foot examination Diabetic F oot Exam [facility] Start: 03-14-2024 Urine screening for protein [facility] Start: 03-10-2024 Medicare Annual Well ness (AWV) Medicare Annual Wellness (AWV) [facility] Start: 03-10-2024 Medicare Annual Well ness Visit Medicare Annual Wellness Visit [facility] [employer] [facility] Start: 01-11-2024 End: 01-11-2024 Patient encounter procedure 01/11/2024 10:50 AM EST Office Visit [facility] Internal Medicine - Family Medicine [address] [place] [place] [address] Wild Centeno DO [address], [place] [address] [facility] - Family [facility] Start: 12-28-2023 End: 12-28-2023 ambulatory 12/28/2023 2:30 PM EST Treatment [facility] [address] [facility] [address] [place] [address] Zabrina Cortez, DECK STEWARD [facility] Start: 12-26-2023 End: 12-26-2023 ambulatory 12/26/2023 2:30 PM EST Treatment [facility] [address] [facility] [address] [place] [address] Zabrina Cortez, DECK STEWARD [facility] Start: 12-21-2023 End: 12-21-2023 ambulatory 12/21/2023 2:30 PM EST Treatment [facility] [address] [place] [address] Zabrina Cortez, DECK STEWARD [facility] Start: 12-19-2023 End: 12-19-2023 ambulatory [facility] Comment on above: Arrived Start: 12-14-2023 End: 12-14-2023 ambulatory 12/14/2023 2:30 PM EST Treatment [facility] [address] [facility] [address] [place] [address] Zabrina Cortez, DECK STEWARD Arrived [facility] Comment on above: Arrived Start: 10-03-2023 Annual Wellness Visi t (Medicare) Annual Wellness Visit (Medicare) [facility] [employer] [facility] Start: 10-03-2023 [employer] [employer] [facility] Start: 07-08-2023 COVID-19 Vaccine () COVID-19 Vaccine () [facility] Start: 09-18-2022 DTaP,Tdap and Td Vac cines (2 - Td or Tdap) DTaP,Tdap and Td Vaccines (2 - Td or Tdap) [facility] Start: 09-18-2022 DTaP/Tdap/Td vaccine (2 - Td or Tdap) DTaP/Tdap/Td vaccine (2 - Td or Tdap) [facility] [employer] Start: 09-18-2022 [employer] Start: 12-08-2021 [facility] Start: 10-06-2021 [facility] Start: 07-15-2021 End: 07-15-2021 [facility] Start: 07-10-2021 [facility] Start: 06-29-2021 [facility] Start: 03-09-2013 Administration of varicella zoster vaccine Zoster (Shingles) Vaccine (1 of 2) [facility] Start: 03-09-2013 Shingles vaccine (1 of 2) Kraft gles vaccine (1 of 2) [facility] Start: 03-09-2013 [employer] Start: 2004 [facility] osteoporosis [facility] Start: 1994 Screening for malign ant neoplasm of colon [facility] Start: 1967 Adult BMI Follow Up Plan Adult BMI F ollow Up Plan [facility] Start: 1967 Glaucoma [facility] Start: 1967 [facility]atitis C [facility] Start: 1967 Urine screening for protein [facility] Start: 1961 Depression Screen Depression Screen [facility] Start: 1961 [employer] Start: 1959 Diabetic foot examination [facility] Start: 1959 Glaucoma screening Diabetes: R etinopathy Screening [facility] Start: 1959 Hemoglobin A1c measurement [facility] Start: 1959 Lipid panel [employer] Start: 1949 Hemoglobin A1c measurement Diabetes: Hemoglobin A1C [facility] Start: 1949 Screening for malign ant neoplasm of colon [facility] ABG draw [employer] End: 04-20-2025 Basic metabolic 1999 panel - Serum or Plasma Basic Metabolic Panel Lab Routine Daily for 10 Days starting 04/11/2025 until 04/20/2025, 3 completed [employer] Comment on above: Daily for [address] arting 04/11/2025 until 04/20/2025, 3 completed End: 04-20-2025 Calcium, Ionized Calcium, Ionized Lab Routine Daily for 10 Days starting 04/11/2025 until 04/20/2025, 3 completed [employer] Comment on above: Daily for [address] arting 04/11/2025 until 04/20/2025, 3 completed End: 03-11-2025 CBC W Auto Differential panel - Blood [employer] End: 04-20-2025 CBC W Auto Differential panel - Blood CBC with Auto Differential Lab Routine Daily for 10 Days starting 04/11/2025 until 04/20/2025, 3 completed [employer] Comment on above: Daily for [address] arting 04/11/2025 until 04/20/2025, 3 completed End: 05-03-2026 CBC W Auto Differential panel - Blood CBC auto differential Lab Routine S/P cholecystectomy Abnormal CBC 1 Occurrences starting 05/03/2025 until 05/03/2026 [employer] Comment on above: 1 Occurrences starti ng 05/03/2025 until 05/03/2026 CBC W Auto Different ial panel - Blood CBC auto differential Lab Routine S/P cholecystectomy Abnormal CBC 05/03/2025 10:00 AM EDT [employer] [facility] Comprehensive metabo lic 1999 panel - Serum or Plasma [facility] Work Phone: Comprehensive metabo lic 1999 panel - Serum or Plasma [facility] Comprehensive metabo lic 1999 panel - Serum or Plasma [facility] Comprehensive metabo lic 1999 panel - Serum or Plasma [facility] Comprehensive metabo lic 1999 panel - Serum or Plasma [facility] Comprehensive metabo lic 1999 panel - Serum or Plasma [facility] End: 03-11-2025 Comprehensive metabolic 1999 panel - Serum or Plasma [facility] [employer] End: 05-03-2026 Comprehensive metabolic 1999 panel - Serum or Plasma Comprehensive metabolic panel Lab Routine S/P cholecystectomy 1 Occurrences starting 05/03/2025 until 05/03/2026 [facility] Work Phone: Comment on above: 1 Occurrences starti ng 05/03/2025 until 05/03/2026 Comprehensive metabo lic 2000 panel - Serum or Plasma Comprehensive metabolic panel Lab Routine S/P cholecystectomy 05/03/2025 10:00 AM EDT [employer] System Continuous positive airway pressure ventilation treatment [facility] [employer] Continuous pulse oximetry [place] n [employer] CT Abdomen and Pelvi s W contrast IV [facility] CT Abdomen and Pelvi s W contrast IV [facility] CT Abdomen and Pelvi s W contrast IV [facility] CT Abdomen and Pelvi s W contrast IV [facility] CT Chest W contrast IV [facility] CT Chest W contrast IV [facility] CT Chest W contrast IV [facility] CT Chest W contrast IV [facility] Glucose [Mass/volume ] in Serum or Plasma [employer] Glucose [Mass/volume ] in Serum or Plasma [facility] [employer] Glucose [Mass/volume ] in Serum or Plasma POCT Glucose Point of Care Testing STAT As Needed until discontinued starting 04/10/2025 [employer] Comment on above: As Needed until disc ontinued starting 04/10/2025 End: 07-16-2025 Hemoglobin A1c/Hemoglobin.total in Blood Hemoglobin A1c Lab Routine 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 ([facility]) 1 Occurrences starting 07/16/2024 until 07/16/2025 [facility] Work Phone: Comment on above: 1 Occurrences starti ng 07/16/2024 until 07/16/2025 End: 04-24-2026 Home sleep study Home sleep study Sleep Center Routine Hypersomnia 1 Occurrences starting 04/24/2025 until 04/24/2026 [facility] Work Phone: Comment on above: 1 Occurrences starti ng 04/24/2025 until 04/24/2026 Lactate dehydrogenas e [Enzymatic activity/volume] in Unspecified specimen [facility] Work Phone: Lactate dehydrogenas e [Enzymatic activity/volume] in Unspecified specimen [facility] End: 03-11-2025 Magnesium [Mass/volume] in Serum or Plasma [facility] End: 04-20-2025 Magnesium [Mass/volume] in Serum or Plasma Magnesium Lab Routine Daily for 10 Days starting 04/11/2025 until 04/20/2025, 3 completed [facility] [employer] Comment on above: Daily for [address] arting 04/11/2025 until 04/20/2025, 3 completed End: 07-16-2025 Microalbumin - Albumin: Creatinine Urine Ratio Microalbumin - Albumin: Creatinine Urine Ratio Lab Routine 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 ([facility]) 1 Occurrences starting 07/16/2024 until 07/16/2025 [employer] Comment on above: 1 Occurrences starti ng 07/16/2024 until 07/16/2025 Nasal Cannula Oxygen Nasal Cannu la Oxygen Respiratory Care Routine Daily until discontinued starting 04/13/2025 [facility] [employer] Work Phone: Comment on above: Daily until disconti nued starting 04/13/2025 Non-Heated High Flow Nasal Cannula [facility] [employer] Work Phone: Oxygen therapy [Mini mum Data Set] [facility] [employer] Oxygen therapy [Mini mum Data Set] Initiate Oxygen Therapy Protocol Respiratory Care Routine As Needed until discontinued starting 04/10/2025 [employer] Comment on above: As Needed until disc ontinued starting 04/10/2025 Pathology study Surgical Patholo gy Lab Routine Cholecystitis Release Upon Ordering for 1 Occurrences starting 04/10/2025 [facility] [employer] Comment on above: Release Upon Orderin g for 1 Occurrences starting 04/10/2025 Patient Education Ureteroscopy - Discharge instructions Ureteral stent placement - Discharge instructions [facility] Work [facility]: [facility] Work Phone: POCT EKG POCT EKG ECG Rou tk Irregular heart beat 05/03/2025 10:17 AM EDT [employer] End: 06-17-2026 Polysomnography 4 or more parameters with PAP titration Polysomnography 4 or more parameters with PAP titration Sleep Center Routine RONEN (obstructive sleep apnea) Class 3 severe obesity due to excess calories with serious comorbidity and body mass index (BMI) of 40.0 to 44.9 in adult ([facility] Essential hypertension, benign 1 Occurrences starting 06/17/2025 until 06/17/2026 [employer] Work Phone: Comment on above: 1 Occurrences starti ng 06/17/2025 until 06/17/2026 End: 04-29-2026 PSG Diagnostic PSG Diagnostic [facility] Routine Hypersomnia Excessive daytime sleepiness 1 Occurrences starting 04/29/2025 until 04/29/2026 [employer] Work Phone: Comment on above: 1 Occurrences starti ng 04/29/2025 until 04/29/2026 End: 03-03-2025 Respiratory care evaluation only [facility] [employer] Spirometry panel [facility] [employer] [facility] End: 07-16-2025 Thyrotropin [Units/volume] in Serum or Plasma TSH Lab Routine Type 2 diabetes mellitus with stage 3a chronic kidney disease, with long-term current use of insulin ([facility]) 1 Occurrences starting 07/16/2024 until 07/16/2025 [employer] Comment on above: 1 Occurrences starti ng 07/16/2024 until 07/16/2025 Extremity [facility] Work Phone: Extremity [facility] Extremity [facility] Immunizations Immunization Date Immunization Notes Care Provider [facility] 08-16-2024 Seasonal trivalent influenza vaccine, adjuvanted, preservative free Giuseppe Jama [employer] Work Phone: [employer] 08-16-2024 Immunization, In Clinic,; Translations: [Drug or medicament (substance)] Giuseppe Jama [employer] Work Phone: [employer] 08-16-2024 influenza virus vaccine, unspecified formulation Wild Centeno DO Work Phone: [facility] 09-12-2023 Influenza Vaccine, Quadrivalent, Adjuvanted Wild Furlong DO Work Phone: [facility] 09-12-2023 influenza virus vaccine, unspecified formulation Wild Furlong DO Work Phone: [facility] 10-08-2022 influenza virus vaccine, unspecified formulation Shavon Lue [facility] 10-08-2022 Influenza, High-dose , Quadrivalent Wild Furlong DO Work Phone: [facility] 10-06-2021 SARS-CoV-2 (COVID-19 ) mRNA BNT-162j0 vax Shavon Lue [facility] 01-22-2021 SARS-CoV-2 (COVID-19 ) mRNA BNT-162b2 vax Shavon Lue [facility] 01-01-2021 SARS-CoV-2 (COVID-19 ) mRNA BNT-162b2 vax Shavon Lue [facility] 10-12-2020 influenza virus vaccine, unspecified formulation Shavon Lue [facility] 10-12-2020 influenza, injectabl e, quadrivalent, contains preservative Wild Furlong DO Work Phone: [facility] 09-03-2019 influenza virus vaccine, unspecified formulation Shavon Lue [facility] 09-03-2019 Influenza, injectabl e, Madin Lewes Canine Kidney, quadrivalent with preservative Wild Furlong DO Work Phone: [facility] 10-24-2017 influenza virus vaccine, unspecified formulation Shavon Lue [facility] 10-24-2017 Influenza, injectabl e, Madin Lewes Canine Kidney, preservative free, quadrivalent Wild Furlong DO Work Phone: [facility] 10-24-2017 pneumococcal polysaccharide vaccine, 23 valent Wild Furlong DO Work Phone: [facility] 09-05-2016 influenza virus vaccine, unspecified formulation Shavon Lue [facility] 09-05-2016 influenza, seasonal, injectable, preservative free Wild Furlong DO Work Phone: [facility] 08-05-2016 pneumococcal conjuga te vaccine, 13 valent Wild Furlong DO Work Phone: [facility] 09-07-2015 influenza virus vaccine, unspecified formulation Shavon Lue [facility] 09-07-2015 influenza, seasonal, injectable, preservative free Wild Furlong DO Work Phone: [facility] 01-12-2013 varicella virus vaccine Denn is Furlong DO Work Phone: [facility] 01-12-2013 zoster vaccine, unspecified formulation Wild Furlong DO Work Phone: [facility] 09-18-2012 tetanus toxoid, redu bret diphtheria toxoid, and acellular pertussis vaccine, adsorbed Wild Furlong DO Work Phone: [facility] 1950 pneumococcal conjuga te vaccine, 7 valent 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 Payers Date Payer Category Payer Self-pay [id number] 2018 Commercial Indemnity [employer] [id number] 2018 Unknown 2014 Medicare 2014 Private Health Insurance [id number] 1959 Medicare [id number] 1959 Unknown [id number] 1949 Unknown [id number] 2.16.840.1.749355.3.579.2. 593 1949 Unknown [id number] 2.16.840.1.704226.3.579.2. 593 1949 Unknown [id number] 2.16.840.1.027701.3.579.2. 593 1949 Unknown [id number] 2.16.840.1.348752.3.579.2. 593 1949 Unknown [id number] 2.16.840.1.521828.3.579.2. 173 1949 Unknown [id number] 2.16.840.1.773060.3.579.2. 173 1949 Unknown [id number] 2.16.840.1.845874.3.579.2. 196 1949 Unknown [id number] 2.16.840.1.378329.3.579.2. 1259 1949 Unknown [id number] 2.16.840.1.936822.3.579.2. 1259 1949 Unknown [id number] 2.16.840.1.188777.3.579.2. 1259 1949 Unknown [id number] 2.16.840.1.927642.3.579.2. 125 1949 Unknown [id number] 2.16.840.1.312100.3.579.2. 125 1949 Unknown [id number] 2.16.840.1.647451.3.579.2. 1258 1949 Unknown [id number] 2.16.840.1.755784.3.579.2. 125 1949 Unknown [id number] 2.16.840.1.139759.3.579.2. 125 1949 Unknown [id number] 2.16.840.1.629719.3.579.2. 125 1949 Unknown [id number] 2.16.840.1.117292.3.579.2. 125 1949 Unknown [id number] 2.16.840.1.303632.3.579.2. 1259 1949 Unknown [id number] 2.16.840.1.042139.3.579.2. 1259 1949 Unknown [id number] 2.16.840.1.618350.3.579.2. 1259 1949 Unknown [id number] 2.16.840.1.330663.3.579.2. 125 1949 Unknown [id number] 2.16.840.1.451722.3.579.2. 1259 1949 Unknown [id number] 2.16.840.1.691006.3.579.2. 125 1949 Unknown [id number] 2.16.840.1.567104.3.579.2. 1259 1949 Unknown [id number] 2.16.840.1.164074.3.579.2. 1259 1949 Unknown [id number] 2.16.840.1.490683.3.579.2. 1259 1949 Unknown [id number] 2.16.840.1.368664.3.579.2. 1259 1949 Unknown [id number] 2.16.840.1.330293.3.579.2. 9 1949 Unknown [id number] 2.16.840.1.607625.3.579.2. 1285 1949 Unknown [id number] 2.16.840.1.192733.3.579.2. 1285 1949 Unknown [id number] 2.16.840.1.915091.3.579.2. 175 1949 Unknown [id number] 2.16.840.1.952562.3.579.2. 175 1949 Unknown [id number] 2.16.840.1.753430.3.579.2. 1285 1949 Unknown [id number] 2.16.840.1.752249.3.579.2. 128 1949 Unknown [id number] 2.16.840.1.466835.3.579.2. 128 1949 Unknown [id number] 2.16.840.1.698839.3.579.2. 128 1949 Unknown [id number] 2.16.840.1.740682.3.579.2. 128 1949 Unknown [id number] 2.16.840.1.215579.3.579.2. 128 1949 Unknown [id number] 2.16.840.1.593384.3.579.2. 128 1949 Unknown [id number] 2.16.840.1.479990.3.579.2. 1286 1949 Unknown [id number] 2.16.840.1.469840.3.579.2. 1286 1949 Unknown [id number] 2.16.840.1.091651.3.579.2. 727 1949 Unknown [id number] 2.16.840.1.032872.3.579.2. 727 1949 Unknown [id number] 2.16.840.1.060007.3.579.2. 727 1949 Unknown [id number] 2.16.840.1.076544.3.579.2. 727 Unknown [facility] [id number] Unknown [id number] 2.16.840.1.041225.3.579.2. 531 Unknown [id number] 2.16.840.1.064251.3.579.2. 531 Unknown [id number] 2.16.840.1.049239.3.579.2. 531 Unknown [id number] 2.16.840.1.600347.3.579.2. 531 Unknown [id number] 2.16.840.1.245100.3.579.2. 531 Social History Date Type Detail Facility Assertion Tobacco smoking consumption unknown (finding) [facility] Work Phone: Start: 12-16-2020 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 Start: 1950 Sex Assigned At Female [facility] Start: 03-31-2022 End: 09-06-2022 Tobacco smoking status NHIS Never smoked tobacco (finding) [facility] Start: 09-06-2022 End: 11-04-2023 Tobacco use and exposure Smokeless tobacco non-user [facility] Start: 11-04-2023 End: 07-31-2025 Alcohol intake Ex-drinker (finding) [facility] Start: 12-18-2020 End: 11-04-2023 History of Social function [facility] Start: 12-18-2020 End: 11-04-2023 Tobacco use panel [facility] Start: 11-04-2023 Alcohol Comment Caffeine: 1-2 cups/day [facility] Start: 1950 Sex Assigned At Not on file [facility] Do you belong to any clubs or organizations such as roman catholic groups, unions, fraternal or athletic groups, or school groups? Yes [facility] Are you now , [...] Start: 06-12-2015 End: 12-26-2024 Sex Female (finding) [facility] Has the [employer], [employer], or water company threatened to shut off services in your home in past 12Mo No [employer] (I/We) worried whealesia er (my/our) food would run out before (I/we) got money to buy more. Never true [employer] Sexual Orientation [facility] Medical Equipment Procedure Code Equipment Code Equipment [...] Elena Plus test strips TEST once daily [id number] End: 03-21-2025 [id number] Start: 10-03-2023 [id number] Start: 10-03-2023 [id number] Start: 10-03-2023 [id number] Start: 10-03-2023 [id number] Start: 10-03-2023 [id number] Start: 10-03-2023 Clip Int Xl Yel Polymer Hem-O-Manolo Weck - [id number] Start: 04-10-2025 Goals Date Patient Goal Desired Activity /State Functional Status Date Assessment Result Facility NEGATED: Highlighted row Functional performance Functional status health issues are not documented Disease [facility] Work Phone: Mental Status Date Assessment Result Facility NEGATED: Highlighted row Cognitive function [Interpretation] Cognitive status health issues are not documented Disease [facility] Work Phone: Clinical Notes 10-01-2020 to 08-12-2025 Telephone Encounter - Amanda Poole [facility] - 07/29/2025 8:36 AM EDTTelephone Encounter - Wild Centeno DO - 07/29/2025 8:36 AM EDTTelephone Encounter - Amanda Poole [facility] - 07/29/2025 8:36 AM EDT Note Date & Type Note Facility 08-12-2025 Note Patient Education Cystoscopy with Stent Removal ??? Voiding after the procedure: there may be some pain, burning, urgency, frequency and blood tinged urine following the procedure. These symptoms usually resolve within 2-5 days. Drink the amount of fluid it takes to keep the urine pink to yellow or clear in color. Drinking enough water and fluids will help to ease any discomfort after your procedure. ??? If you are having problems that seem out of the ordinary, please call. ??? If unable to contact your physician and you feel it is an emergency, go to the nearest emergency room or call 911 ??? Diet ??? you may resume your normal diet. ??? Activity ??? you may resume your normal activities ??? Call if you have a fever over 100 degrees. ??? Tylenol alternated with ibuprofen can be taken for pain. AZO can be purchased over the counter for burning with urination. This will make your urine orange. [facility] 08-12-2025 Note History and Physical Patient: TOSHA MCNEAL Age: 74 years Sex: Female : 1950 Associated Diagnoses: None Author: Ramsey JUAREZ, Shavon Lin Preoperative Information Indication for procedure and diagnosis: Right hydronephrosis status post right ureteroscopy with brush biopsy, ureteral balloon dilation, stent placement on 07/30/2025. Here for cystoscopy and right stent removal. Ureteral brushings negative for malignancy. Chief Complaint As above Review of Systems All systems reviewed, negative except as mentioned above Health Status Allergies: Allergic Reactions (Selected) Severity Not Documented AmLODIPine- No reactions were documented. Spironolactone- No reactions were documented. Current medications: (Selected) Documented Medications Documented Acidophilus Probiotic Blend: Refill(s) 0 Novolin N: See Instructions, Refills(s) 0 Trulicity Pen: See Instructions, Refills(s) 0 allopurinol: Refills(s) 0 amLODIPine 5 mg Tab: 5 mg = 1 tab(s), Refills(s) 0 aspirin: 81 mg, Oral, Daily, Refills(s) 0 carvedilol 25 mg Tab: 25 mg = 1 tab(s), Refills(s) 0 furosemide 40 mg Tab: 40 mg = 1 tab(s), Refills(s) 0 lisinopril 40 mg Tab: 40 mg = 1 tab(s), Refills(s) 0 magnesium sulfate: Refills(s) 0 metformin 1000 mg Tab: 1,000 mg = 1 tab(s), Refills(s) 0 rosuvastatin 10 mg Tab: 10 mg = 1 tab(s), Refills(s) 0 Problem list: All Problems Arm fracture / SNOMED CT 52647411 / Confirmed Arthritis / SNOMED CT 0610387 / Confirmed Diabetes type 2 / SNOMED CT 198316509 / Confirmed Gout / SNOMED CT 535906508 / Confirmed History of kidney stones / SNOMED CT 3753912996 / Confirmed Hydroureteronephrosis / SNOMED CT 58552480 / Confirmed Hypercholesteremia / SNOMED CT 68786221 / Confirmed Hypertension / SNOMED CT 7890171089 / Confirmed Morbid obesity with BMI of 40.0-44.9, adult / IMO 12424496 / Possible Problem added automatically by Discern Expert based on clinical documentation RONEN (obstructive sleep apnea) / SNOMED CT 564223745 / Confirmed Osteoporosis / SNOMED CT 780789022 / Confirmed Pilonidal cyst / SNOMED CT 38805253 / Confirmed Canceled: Carpal tunnel syndrome / SNOMED CT 19742529 Histories Past Medical History: No active or resolved past medical history items have been selected or recorded. Family History: Stroke Mother Leukemia Father Procedure history: History of knee surgery (3433661355). History of repair of rotator cuff (7275577056). Bilateral tubal ligation (625972042). Phacoemulsification of cataract with intraocular lens implantation (5497005309). Social History Social & Psychosocial Habits Tobacco 01/16/2025 Tobacco Use: Never (less than 100 in l Smokeless tobacco use: Never . Physical Examination Vital Signs (last 24 hrs) Last Charted Weight 97 kg (AUG 12 09:51) BMI 41.44 (AUG 12 09:51) Measurements from flowsheet : Measurements 08/12/2025 9:51 EDT Height/Length Measured 153 cm Height/Length Dosing 153.0 cm Weight Dosing 97.0 kg BSA Measured 2.03 m2 Body Mass Index Measured 41.44 kg/m2 Weight Measured 97 kg General Appearance: alert , no acute distress, well nourished Head: normocephalic . Eyes: normal orbit and globe. ENMT: normal examination of external ears. Chest: symmetric chest rise, respirations non labored . Cardiovascular: regular rate and rhythm. Abdomen: soft , non distended, no tenderness Genitourinary: bladder nonpalpable, no flank tenderness. Skin: warm, dry Psychiatric: cooperative, affect appropriate for age, normal judgement, euthymic mood. Impression and Plan Impression: Right hydronephrosis status post right ureteroscopy with brush biopsy, ureteral balloon dilation, stent placement on 07/30/2025. Here for cystoscopy and right stent removal. Plan: Proceed with planned surgery per clinic note, risks/benefits previously discussed and documented [facility] Comment on above: Result Comment: Elec tronically Signed By: Ramsey JUAREZ, Shavon March.renea\Date and Time Signed: 08/12/25 10:26 EDT 07-30-2025 Hospital Discharg e instructions Additional Instructions Take Tylenol 650-1000 mg every 6 hours, alternate with ibuprofen 400-800mg every 6 hours in between for pain relief. Tamsulosin daily for stent discomfort. Take at night if you get dizzy or lightheaded, stop if unable to tolerate. Oxybutynin 5 mg every 8 hours as needed for bladder spasms/stent pain. May cause dry mouth/eyes and constipation. Take stool softeners. Stop if you are unable to urinate. You can buy AZO (phenazopyridine) sbvw-vti-yntsojp and use as needed for burning with urination. This will make your urine orange/red. Drink plenty of water and fluids You must follow up to ensure your stent is removed. Failure to do so may result in recurrent infections and renal failure. Start prophylactic antibiotics the morning of stent removal in 2 weeks. [facility] Work Phone: 07-29-2025 Miscellaneous Notes Formattin g of this note might be different from the original. Patient called and has gout and will be in on Tuesday but is having surgery tomorrow. Can you send in the gout medication. okay Patient contacted documented in this encounter [facility] 07-29-2025 Telephone encount er Note Patient called and has gout and will be in on Tuesday but is having surgery tomorrow. Can you send in the gout medication. [facility] 07-29-2025 Telephone encount er Note okay [facility] 07-29-2025 Telephone encount er Note Patient contacted [facility] 07-19-2025 Miscellaneous Notes Formattin g of this note might be different from the original. Patient called and her back ache is so bad but the script that was sent in is 400.00 is there anything else to help? Okay I sent in gabapentin for her Patient was notified documented in this encounter [facility] 07-19-2025 Telephone encount er Note Patient called and her back ache is so bad but the script that was sent in is 400.00 is there anything else to help? [facility] 07-19-2025 Telephone encount er Note Okay I sent in gabapentin for her [facility] 07-19-2025 Telephone encount er Note Patient was notified [facility] 07-17-2025 History of Presen t illness Narrative [...] 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 ([facility] - POCT Hemoglobin A1c - Diabetic foot [...] Will try journvx. Sample given Morbid obesity ([facility]) Other orders - insulin aspart U-100 (NovoLOG Flexpen U-100 Insulin) 100 unit/mL (3 mL) insulin pen; Inject 8 Units under the skin in the morning and 8 Units at noon and 8 Units in the evening. Inject with meals. documented in this encounter [facility] 07-17-2025 Evaluation note Diagnosis 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 ([facility] Primary Degeneration of intervertebral disc of lumbar region with discogenic back pain Morbid obesity (CMS-HCC) Morbid obesity documented in this encounter [facility]08-21-2025 NoteCardiovascular Medicine [facility] SUBJECTIVE Chief Complaint Patient presents with Hypertension [...] Since last seen, she was admitted to [facility] with acute cholecystitis. Her troponin levels were [...] EC tablet, Take (more content not included)... [facility]08-21-2025 NotePatient is here today for a [...] Positive for dyspnea on exertion and leg swelling.[facility]08-13-2025 Hospital Discharge instructions Patient Education 06/19/2025 [...] transplant. Follow these instructions at home: Take gshw-gnp-ysgjiif and prescription medicines only as told by [...] provider. Document Revised: 02/10/2021 Document Reviewed: 02/10/2021 [employer] Patient Education 2023 [place]. Follow Up Care 01/16/2025 10:12:12 With:Ramsey JUAREZ, RAMIREZ Troy, URO Address: When: Unknown [facility] [place] 08-13-2025 NotePatient Education Urology Hydronephrosis Hydronephrosis is [...] Follow these instructions at home: ??? Take qxjt-nph-qflrlra and prescription medicines only as told by [...] provider. Document Revised: 02/10/2021 Document Reviewed: 02/10/2021 [employer] Patient Education ? 2023 [place].[facility] 06-18-2025 Miscellaneous Notes* Telephone Encounter - Wilma Aguirre - 06/18/2025 8:53 AM EDT 06/17 Order received Called PT LM to schedule sleep study. Pap order and 06/17 Nina notes in epic Possible hypoxemia on PSG Please comment on arrhythmia [facility] [id number] Telephone encounter Note* Telephone Encounter - Wilma Aguirre - 06/18/2025 8:53 AM EDT 06/17 Order received Called PT LM to schedule sleep study. Pap order and 06/17 Nina notes in epic Possible hypoxemia on PSG Please comment on arrhythmia [facility] [id number] History of Present illness Narrative* Marie Gray [...] use phone/computer in bed? Yes Number of jabsiw-zm-jfl-night awakenings per night? 1 Cause of awakenings [...] right Arthritis Diabetes mellitus type II, controlled (CMS-HCC) Gout 04/2025 HTN (hypertension) Hyperlipidemia Denies h/o arrhythmia, CVA, [place] PAST SURGICAL HISTORY Past Surgical History: Procedure [...] (3%)=88.1 events/hour; AHI (4%)=22.3 events/hour; Cathy SpO2=85.0%; Chzlqa=896.0 lbs; BMI=40.6 kg/m2) DIAGNOSIS: Obstructive Sleep Apnea (G47.33) COMMENTS: This baseline polysomnogram demonstrates severe obstructive sleep apnea. Of note, there was no REM sleep. The patient's sleep efficiency on the diagnostic night was reduced at 66.1% due to prolonged wake after sleep onset. Sleep was highly fragmented. 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 [...] from the date of your CPAP machine bander and cellophaner helper. You are required to have a minimum [...] 14 days, please callthe sleep lab at [phone] For scheduling of other images, please contact central scheduling at [phone] For any sleep clinic concerns, please contact [phone] Please be aware of the recent recalls [...] More information can be found by visiting [email or web address]. Please be sure to register your Respironics PAP machine due to recent PAP recall There is a current nationwide shortage of PAP machines due to the chip shortage. DME fulfillment times range from 2-6 months. Please refer to the above documentation for further details. Marie Gray M.D. Video Visit via Real-time Synchronous Audiovisual Provider Location: [facility] [address] [id number] Patient Location: Patient's home Video Visit Consent [...] that there are some limitations compared to fofz-qr-uxor evaluations. The patient consented to the presence of additional virtual and/or in-person participants. We elected to proceed. [facility] Radiology Diagnostic [place] [facility] [place] [address] Ultrasound Report Signed Patient: Tosha Mcneal MR#: [id number] : 1950 Acct:[id number] Age/Sex: 74 / F ADM Date: 5 Loc: Room: [facility] Att[facility]: Shavon Mustafa MD Ordering [...] HYDRONEPHROSIS. Impression dictated by: Miki Kruse Jr., DPabloOPablo 06/11/2025 1:21 PM Dictation Location: [place] [address] Tech: Cyndi Brown Transcribed By: SRUTHI 06/11/25 1321 Dictated By: Miki Kruse Jr, DO 06/11/25 1319 Signed By: 06/11/25 1321 [facility]07-14-2025 Miscellaneous Notes* Telephone Encounter - Dee Dee Horton MD - 05/20/2025 11:38 AM EDT Images from the original note were not included. PSG ordered by PCP Wild Centeno DO - please see results and abnormal EKG PPG read/follow Kimber, please offer new patient appointment for RONEN, thanks! Polysomnogram on 2025-05-07 (AHI (3%)=88.1 events/hour; AHI (4%)=22.3 events/hour; Cathy SpO2=85.0%; Dsmkxr=863.0 lbs; BMI=40.6 kg/m2) DIAGNOSIS: Obstructive Sleep Apnea (G47.33) COMMENTS: This baseline polysomnogram demonstrates severe obstructive sleep apnea. Of note, there was no REM sleep. The patient's sleep efficiency on the diagnostic night was reduced at 66.1% due to prolonged wake after sleep onset. Sleep was highly fragmented. The design technician noted possible hypoxemia versus malfunction of [...] 11:38 AM EDT Called pt and scheduled CENTRAL SUPPLY SUPERVISOR vv with JK 06/17/25. Pt headed out of town in near future, had to wait until her return. No other prev ss. Wakes up. Assigned NPQ. Pt encouraged to sleep on sides and/or partially elevated in mean time. [facility] Telephone encounter Note* Telephone Encounter - Dee Dee Horton MD - 05/20/2025 11:38 AM EDT Images from the original note were not included. PSG ordered by PCP Wild Centeno DO - please see results and abnormal EKG PPG read/follow Kimber, please offer new patient appointment for RONEN, thanks! Polysomnogram on 2025-05-07 (AHI (3%)=88.1 events/hour; AHI (4%)=22.3 events/hour; Cathy SpO2=85.0%; Ljeqer=393.0 lbs; BMI=40.6 kg/m2) DIAGNOSIS: Obstructive Sleep Apnea (G47.33) COMMENTS: This baseline polysomnogram demonstrates severe obstructive sleep apnea. Of note, there was no REM sleep. The patient's sleep efficiency on the diagnostic night was reduced at 66.1% due to prolonged wake after sleep onset. Sleep was highly fragmented. The design technician noted possible hypoxemia versus malfunction of [...] titration study is recommended at this time. [employer] Work Phone: [phone] Telephone encounter Note* Telephone Encounter - Kimber Bansal - 05/20/2025 11:38 AM EDT Called pt and scheduled CENTRAL SUPPLY SUPERVISOR vv with GENNA 06/17/25. Pt headed out of town in near future, had to wait until her return. No other prev ss. Wakes up. Assigned NPQ. Pt encouraged to sleep on sides and/or partially elevated in mean time. [employer]07-08-2025 History of Present illness Narrative* Wild Centeno, - 05/14/2025 2:00 PM EDT Subjective Patient [...] diet education. Lumbar spondylosis X-ray onto in 2015 showed severe facet arthropathy. I will renew her handicap parking placard for 5years. She can not walk greater than 200 ft without stopping to rest. Other orders - cholestyramine 4 gram powder; Take 4 g by mouth in the morning. documented in this encounterSelect Medical [facility]ty [facility]06-27-2025 Miscellaneous Notes* Telephone Encounter - Genny Valdovinos - 05/03/2025 1:32 PM EDT Contract: 198 [facility] RE Critical Results * Telephone Encounter - Genny Valdovinos - 05/03/2025 1:32 PM EDT Contract: 198 Called Lucy Lezama to call [facility] * Telephone Encounter - Genny Valdovinos - 05/03/2025 1:32 PM EDT Contract: 198 Called Lucy rendon LM to call [facility] * Telephone Encounter - Codie Schneider - 05/03/2025 1:32 PM EDT Lucy Ansari called back and was connected to ultrasound. documented in this encounterSelect Medical Specialty Hospital [facility]06-27-2025 Telephone encounter Note* Telephone Encounter - Genny Valdovinos - 05/03/2025 1:32 PM EDT Contract: 198 [facility] RE Critical Results [facility]-2025 Telephone encounter Note* Telephone Encounter - Genny Valdovinos - 05/03/2025 1:32 PM EDT Contract: 198 Called Lucy Ansari and SCARLETT to call [facility]06-27-2025 Telephone encounter Note* Telephone Encounter - Genny Valdovinos - 05/03/2025 1:32 PM EDT Contract: 198 Called Lucy rendon LM to call [facility]06-27-20[facility] Telephone encounter Note* Telephone Encounter - Codie Schneider - 05/03/2025 1:32 PM EDT Lucy Ansari called back and was connected to ultrasound. [facility]06-27-[facility] History of Present illness Narrative* Sarah Ansari APRN-MOSHGIACH - 05/03/2025 9:20 AM EDT [address] [facility] [address] Patient: Tosha Mcneal Date of : 1950 Encounter Date: 05/03/2025 History of Present Illness: The patient is a 74 y.o. female, an established patient, and is here for Chief Complaint Patient presents with Follow-up From last visit. Feels like she has gout in the left foot. . HPI Patient is status post cholecystectomy through [employer] system on April 11, 2025. She was discharged [...] Items Addressed This Visit Digestive Morbid obesity ([facility]) Endocrine Type 2 diabetes mellitus ([facility]) Other Visit Diagnoses S/P cholecystectomy - Primary [...] BMI 40.58 kg/m Physical Exam Vitals reviewed. Human Resources Administrator present: spouse present. Constitutional: General: She is [...] kidney disease, with long-term current use of insulin([facility]) Localized swelling of left foot - Vas [...] due to swelling in left foot. Called [facility] and she was scheduled for 1pm [...] JIM APRN-CNP 05/03/25 1038 documented in this encounterSelect Medical Specialty Hospital [facility]06-24-2025 Miscellaneous Notes* Telephone Encounter - Kimberly Carr - 04/30/2025 8:53 AM EDT 04/29 PSG order received Scheduled PSG at [facility] on 05/07/25 Emailed confirmation Med A & B Chatted pre auth for ins add PSG Order and 04/24/25 [place] Epic Notes * Telephone Encounter - Any Lairdman - 04/30/2025 8:53 AM EDT AUTH/START PSG([id number])/NPR Medicare A&B primary documented in this encounterSelect Medical Specialty Hospital [facility]06-24-2025 Telephone encounter Note* Telephone Encounter - Kimberly Carr - 04/30/2025 8:53 AM EDT 04/29 PSG order received Scheduled PSG at [facility] on 05/07/25 Emailed confirmation Med A & B Chatted pre auth for ins add PSG Order and 04/24/25 [place] Epic Notes [facility]06-[facility]25 Telephone encounter Note* Telephone Encounter - Any Lairdman - 04/30/2025 8:53 AM EDT AUTH/START PSG([id number])/NPR Medicare A&B primary [facility]06-19-2025 Miscellaneous Notes* Telephone Encounter - Lisa Camarillo - 04/25/2025 2:45 PM EDT 04/24 Order received Scheduled HST at [facility] on 7:30 pm Confirmation emailed Routed Elizabeth Horton for approval Chat to pre auth Medicare Part A & B MMO Traditional HST Order and 04/24/25 D. [place] Epic Notes documented in this encounterSelect Medical Specialty [facility]06-19-2025 Telephone encounter Note* Telephone Encounter - Lisa Camarillo - 04/25/2025 2:45 PM EDT 04/24 Order received Scheduled HST at [facility] on 7:30 pm Confirmation emailed Routed Elizabeth Horton for approval Chat to pre auth Medicare Part A & B MMO Traditional HST Order and 04/24/25 Myron Centeno Epic Notes [employer]06-18-2025 History of Present illness Narrative* Wild Centeno, [...] visit. She had her gallbladder removed at [facility] in [place]. She was doing okay. She has had [...] Exam Vitals reviewed. Exam conducted with a dental treatment coordinator present (). Constitutional: General: She is not [...] was seen today for tcm- gallbladder surgery.- [facility]. Diagnoses and all orders for this visit: S/P laparoscopic cholecystectomy She is slowly improving. She does have diarrhea which maybe a complication of the surgery. I suggested a bile acid sequestrant powder to help with that but she declined. She can use Imodium as needed. Low-fat, high-fiber diet discussed. Morbid obesity ([facility]) She is morbidly obese. She would benefit from weight loss. Patient noted to have elevated BMI and the following intervention(s) were applied: encouragement toexercise and prescribed diet education. Hypersomnia - Home sleep study; Future She has hypersomnia. She scored high on the STOP BANG and borderline on the Hampton sleep scale. Type 2 diabetes mellitus with stage 2 chronic kidney disease, with long-term current use of insulin([facility]) - insulin degludec (TRESIBA FLEXTOUCH U-100) 100 [...] under the skin nightly. documented in this encounterSelect Medical Specialty Hospital [facility]06-09-2025 Miscellaneous Notes* Telephone Encounter - Chaya Doll [...] Discharge Specialty: Other *Name of Discharging Facility: [facility] [[email or web address] Date of Facility Discharge: 04.10.25 - 04.13.25 Date of Interactive Contact and Name of Smoke Tester: 04.15.25 @ [facility] - Spoke with patient *Medication Review Completed: [...] Services Utilized/Needed by the Patient: Tanja Jensen [facility] - Start of care completed. [employer] - Home oxygen supplies documented in this encounterSelect Medical Specialty Hospital [facility]06-09-2025 Telephone encounter Note* Telephone Encounter - Chaya [...] Discharge Specialty: Other *Name of Discharging Facility: [facility] [[email or web address]] Date of Facility Discharge: 04.10.25 - 04.13.25 Date of Interactive Contact and Name of Smoke Tester: 04.15.25 @ [facility] - Spoke with patient *Medication Review Completed: [...] Services Utilized/Needed by the Patient: Tanja Jensen [facility] - Start of care completed. [employer] - Home oxygen supplies [facility] [id number] Miscellaneous Notes* Telephone Encounter - Chelsi Dee RN - 04/15/2025 11:27 AM EDT Transition of Care documented in this encounterSelect Medical Specialty Hospital [facility]06-09-2025 Telephone encounter Note* Telephone Encounter - Chelsi Dee RN - 04/15/2025 11:27 AM EDT Transition of Care [employer] Work Phone: 1(991) 805-632906-07-2025 History of Present illness Narrative* Melida Merlos [...] IS, pulm toilet, ambulate 3x daily Resume DECK STEWARD lasix dosing Continue regular diet Monitor UOP [...] Tolerating reg diet. S. Fam Cline MD, FACS Acute Care Surgery Attending [facility] * Musa Mathew RCP - [...] 11:09 AM * Anna Pyle APRN - CNP - 04/11/2025 12:46 PM EDT Images from the original note were not included. PROGRESS NOTE PATIENT NAME: Tosha Mcneal DATE: 04/11/2025 PRIMARY CARE PHYSICIAN: Wild Centeno DO HD: # 1 ASSESSMENT Patient Active Problem List Diagnosis S/P total knee replacement using cement, left Diabetes mellitus (HCC) Hypertension Acute cholecystitis Hypotension due to hypovolemia Troponin level elevated Hyperlipidemia OBO (acute kidney injury) Sepsis associated hypotension (HCC) Lactic acidosis Hypovolemia Pulmonary infiltrate Atelectasis pulmonary RONEN (obstructive sleep apnea) Cholecystitis Acute cholecystitis due to biliary calculus 74yo post-op lap jt for cholecystitis MEDICAL DECISION MAKING AND PLAN MMPT IS, pulm toilet, ambulate 3x daily Resume DECK STEWARD lasix dosing Stop mIVF Regular diet Monitor [...] wean off O2 prior to d/c today. S. Fam Cline MD, [facility] Acute Care Surgery Attending [facility] * Alfred Montejo RN - 04/10/2025 9:39 PM EDT Labs sent. at bedside * Antoni Carr RN - 04/08/2025 2:48 PM EDT Cardiology,moderate risk documented in this encounterBon [facility]06[facility] Hospital Discharge instructions* Discharge Instr - JEANETTE* Melida Merlos DO - 04/13/2025 9:11 AM EDT Continuity of Care Form Patient Name: Tosha Mcneal : 1950 Admit date: 04/10/2025 Discharge date: 04/13 Code Status Order: Full Code Advance Directives: Date/Time Healthcare Directive Type of Healthcare Directive Copy in Chart Healthcare Agent Appointed Healthcare Agent's Name Healthcare Agent's Phone Number 04/10/25 1122 Yes, patient has an advance directive for healthcare treatment Durable power of estate planning attorney for health care;Living will No, copy requested from family Spouse Dayo Mcneal--pt's [phone] Admitting Physician: Rajni Cline MD PCP: Wild Centeno DO Discharging Nurse: cc Discharging Hospital Unit/Room#: 0445/0445-01 Discharging Unit Phone Number: [phone] Emergency Contact: Extended Emergency Contact Information Primary Emergency Contact: Dayo Mcneal [facility] Relation: Spouse Secondary Emergency Contact: Wayne Mcneal Mobile Relation: Child Past Surgical History: Past Surgical History: Procedure Laterality Date CARPAL TUNNEL RELEASE Right CHOLECYSTECTOMY, LAPAROSCOPIC 04/10/2025 CHOLECYSTECTOMY, LAPAROSCOPIC N/A 04/10/2025 LAPAROSCOPIC CHOLECYSTECTOMY performed by Rajni Cline MD at [facility] [[email or web address]] OR CYST REMOVAL tailbone EYE SURGERY Left fracture repair FRACTURE SURGERY Left left arm IR CHOLECYSTOSTOMY PERCUTANEOUS COMPLETE 03/04/2025 IR CHOLECYSTOSTOMY PERCUTANEOUS COMPLETE 03/04/2025 Tanner Baez MD [facility] [[email or web address]] SPECIAL PROCEDURES SHOULDER ARTHROSCOPY Left 2019 Dr Levy at [facility] TONSILLECTOMY TOTAL KNEE ARTHROPLASTY Left 10/03/2023 TOTAL KNEE ARTHROPLASTY Left 10/03/2023 KNEE TOTAL ARTHROPLASTY performed by Aly Higgins MD at [facility] OR TUBAL LIGATION Immunization History: Immunization History [...] Independent Dressing Independent Toileting Independent Feeding Independent Cook [place] Independent Med Delivery whole Wound Care Documentation [...] Status Date: 04/10/25 Readmission Risk Assessment Score: [facility] RISK OF UNPLANNED READMISSION 2.0 18.3 Total Score Discharging to Facility/ Agency Name: Jesus Jensen [facility] Address: Phone: Fax: Dialysis Facility (if applicable) Name: Address: Dialysis Schedule: Phone: Fax: [employer] signature: EDT PHYSICIAN SECTION Prognosis: Good Condition at Discharge: Stable Rehab Potential (if transferring to Rehab): Good Recommended Labs or Other Treatments After Discharge: supplemental O2 Physician Certification: I certify the above information and transfer of Tohsa Mcneal is necessary for the continuing treatment of the diagnosis listed and that she requires Home Care for greater 30 days. Update Admission H&P: No change in H&P PHYSICIAN SIGNATURE: documented in this encounterBon [facility]05-[facility] NotePatient is here today for a 1 month follow from admission to [facility]. Patient states she was in [facility] due to her gall bladder. She has a drain tube draining her gall bladder, patient states there was so much fluid around around her gall bladder. Patient states since she has had the tube her abdomen her ankles have decrease in size. Patient states she is no longer having shortness of breath or swelling. Review of Systems Constitutional: Negative.[facility]05-20-2025 Note Cardiovascular Medicine [facility] SUBJECTIVE Chief Complaint Patient presents with Congestive Heart Failure Hypertension Hyperlipidemia Tosha Mcneal is a 74 y.o. female here for follow-up. HPI PMHx: HFpEF, HTN, HLD 03/26/2025 Since last seen, she was admitted to [facility] with acute cholecystitis. Her troponin levels were [...] , Rfl: ergocalciferol (Vitamin D-2) 1.25 MG (54425 Units) capsule, Take 1 capsule by mouth [...] bruit. Cardiovascular: Rate a (more content not included)...[facility] 03-21-2025 History of Present illness Narrative* [...] for hospital follow-up. She was admitted to [facility] after she went to [facility] 2 weeks ago. She [...] the 2nd 1 she was sent to [place]. She does not recall the events. He [...] Exam Vitals reviewed. Exam conducted with a dental treatment coordinator present ( and Catr[place] 3). [...] disease, with long-term current use of insulin ([facility]) - Hemoglobin A1c; Future - Hemoglobin A1c Check A1c. The last 2 weeks of her glucometer has been downloaded and it is very good. I am going to stop her Novolin N 60 units and increase her Tresiba 50 units and see how she does. She was encouraged to use the short-acting insulin with each meal. Morbid obesity ([facility]) She is obese. She has lost weight but because she has been sick. It will benefit her overall but would be better if she could lose it through proper diet and exercise. 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 ([facility]) Follow up with specialist as directed Other orders - insulin degludec (TRESIBA FLEXTOUCH U-100) 100 unit/mL (3 mL) insulin pen; Inject 50 Units under the skin nightly. documented in this encounterSelect Medical Specialty [facility]05-07-2025 Miscellaneous Notes* Telephone Encounter - Tressa Campbell CMA - 03/13/2025 3:50 PM EDT [facility] called inquiring about you to follow [...] 3:50 PM EDT NOTIFIED documented in this encounterSelect Medical Specialty [facility]05-07-2025 Telephone encounter Note* Telephone Encounter - Tressa Campbell CMA - 03/13/2025 3:50 PM EDT [facility] called inquiring about you to follow her with her care. Please advise. Thank you. [facility]05-07-2025 Telephone encounter Note* Telephone Encounter - Wild Centeno DO - 03/13/2025 3:50 PM EDT Sure [facility]05-07-2025 Telephone encounter Note* Telephone Encounter - Amanda Poole CMA - 03/13/2025 3:50 PM EDT They did a SOC today for the patient and is concerned about the blood Sugars. Patient spoke with gissel she states her BS are running 100-140 during the day. Then at night 89-90. Is there any changesthat need to be made? [facility]05-07-2025 Telephone encounter Note* Telephone Encounter - Wild Centeno DO - 03/13/2025 3:50 PM EDT No changes unless she is symptomatic [facility]05-07-2025 Telephone encounter Note* Telephone Encounter - Amanda Poole CMA - 03/13/2025 3:50 PM EDT NOTIFIED [facility]05-05-2025 Miscellaneous Notes* Telephone Encounter - Any Delatorre [...] Successful ultrasound fluoroscopic guided placement of 8 Malagasy cholecystostomy tube. Discharge Specialty: Gastroenterology and Infectious Disease *Name of Discharging Facility: [facility] (admitted 03/03/25) Date of Facility Discharge: 03/10/25 Date of Interactive Contact and Name of Smoke Tester: 03/11/25 at 1:15pm Spoke with patient. *Medication [...] but she declined a full review with telegraphic typewriter installer over the phone. Please reconcile at upcoming visit. *Follow Up Appointments with Providers: Primary: Wild Centeno DO 03/21/25 at 11:00am Specialty: [facility] Cardiology Alfred Roman CNP 03/13/25 at 9:40am Specialty: General Surgery [phone] To schedule. Specialty: Review of Pending Lab/Diagnostic [...] Other Services Utilized/Needed by the Patient: Tanja [facility] Voice message left to confirm they are [...] to improve. Verbalized understanding. documented in this encounterSelect Medical Specialty [facility]05-05-2025 Telephone encounter Note* Telephone Encounter - Any [...] Successful ultrasound fluoroscopic guided placement of 8 Malagasy cholecystostomy tube. Discharge Specialty: Gastroenterology and Infectious Disease *Name of Discharging Facility: [facility] (admitted 03/03/25) Date of Facility Discharge: 03/10/25 Date of Interactive Contact and Name of Smoke Tester: 03/11/25 at 1:15pm Spoke with patient. *Medication [...] but she declined a full review with telegraphic typewriter installer over the phone. Please reconcile at upcoming visit. *Follow Up Appointments with Providers: Primary: Wild Centeno, 03/21/25 at 11:00am Specialty: [facility] Cardiology Alfred Roman CNP 03/13/25 at 9:40am Specialty: General Surgery [phone] To schedule. Specialty: Review of Pending Lab/Diagnostic [...] and Other Services Utilized/Needed by the Patient: [facility] Voice message left to confirm they are following for home care services. Patient has not heard fromthem yet. [employer]05-05-2025 Telephone encounter Note* Telephone Encounter - Wild Centeno DO - 03/11/2025 11:05 AM EDT Continue with Imodium and I would add a fiber supplement to give her stool some bulk [facility]05-05-2025 Telephone encounter Note* Telephone Encounter - Any Delatorre RN - 03/11/2025 11:05 AM EDT Contact Type: Direct contact - Phone call with patient - general Patient instructed on provider recommendations. Patient states she is already taking a fiber tabletdaily. She was instructed to call office if symptoms worsen or fail to improve. Verbalized understanding. [facility]05-05-2025 Miscellaneous Notes* Telephone Encounter - Chelsi Dee RN - 03/11/2025 9:52 AM EDT GEE Tanja Mckeon's 03/10/25 documented in this encounterSelect Medical Specialty [facility]05-05-2025 Telephone encounter Note* Telephone Encounter - Chelsi Dee RN - 03/11/2025 9:52 AM EDT GEE Tanja Mckeon's 03/10/25 [facility] Work Phone: [phone] Hospital course Narrative* Piter Weems MD - 03/10/2025 11:45 AM EDT Images from the original note were not included. [facility] Office: [phone] Juan F Medina DO, Sami Ghosh DO, [...] MD, Piter Weems MD, Gray Sandy MD, Grya Tobias MD, Vitor Scherer DO, Jesusita Gresham MD, Marvin Oleary MD, Rashid Dial MD, Edwin Dial MD, Darryl Saha MD, Elinor Granados, MOSHGIACH, Sloane Interiano, MOSHGIACH, Vitor Qureshi, [place]GI[place], Beth Sherwood, [facility], Vale Sesay, [place]GIACH, Jojo Lama, [place]GIACH, Melida Nick, [place]GI[place], Desire Sarmiento, [place]GI[place], Katrin Haywood, PA-C, Vika Cuevas, [place]GIACH, Rosa Baez, [place]GI[place], Serenity Mata, [place]GIACH, Aleida Flores,MOSHGIACH, Roscoe Licea, PA-C, Karis Card, [facility], Milady Villar, [facility], Codie Serra, [place]GIACH, Bren Palomo, MOS[place]GIACH, Lakshmi Drake, MOSHGIACH [facility] IN-PATIENT SERVICE [facility] Discharge Summary Patient ID: Tosha Mcneal : 1950 ACCOUNT: [id number] Patient's PCP: Wild Centeno DO Admit Date: 03/03/2025 Discharge Date: 03/10/2025 Length of Stay: 7 Code Status: Full Code Admitting Physician: Piter Weems MD Discharge Physician: iPter Weems MD Active Discharge Diagnoses: Hospital Problem [...] for acute cholecystitis. [facility] and was evaluated by general surgery for [...] Successful ultrasound fluoroscopic guided placement of 8 Malagasy cholecystostomy tube. US ABDOMEN LIMITED Specify organ? [...] Home Physician Follow Up: Rajni Cline MD [facility] [address] [facility] [address] Schedule an appointment as soon as possible for a visit in 2 week(s) to monitor perc jt drain and discuss interval cholecystectomy Wild Centeno, DO [address] [facility] [address] Follow up Requiring Further Evaluation/Follow Up [...] Your Medications These medications were sent to [facility] - [place], [place] - [address] - P [phone] - F [phone] [place] [address] amoxicillin-clavulanate 875-125 MG per tablet pantoprazole 40 [...] this patient's care. documented in this encounterBon [facility]05-04-[facility] Hospital Discharge instructions* Discharge Instructions* Piter [...] Hospital Unit/Room#: 0423/0423-01 Discharging Unit Phone Number: [phone] Emergency Contact: Extended Emergency Contact Information Primary Emergency Contact: Dayo Mcneal [facility] Relation: Spouse Secondary Emergency Contact: Wayne Mcneal Mobile Relation: Child Past Surgical History: Past Surgical History: Procedure Laterality Date CARPAL TUNNEL RELEASE Right CYST REMOVAL tailbone EYE SURGERY Left fracture repair FRACTURE SURGERY Left left arm IR CHOLECYSTOSTOMY PERCUTANEOUS COMPLETE 03/04/2025 IR CHOLECYSTOSTOMY PERCUTANEOUS COMPLETE 03/04/2025 Tanner Baez MD [facility] [[email or web address] SPECIAL PROCEDURES SHOULDER ARTHROSCOPY Left 2019 Dr Levy at [facility] TONSILLECTOMY TOTAL KNEE ARTHROPLASTY Left 10/03/2023 TOTAL KNEE ARTHROPLASTY Left 10/03/2023 KNEE TOTAL ARTHROPLASTY performed by Aly Higgins MD at [facility] OR TUBAL LIGATION Immunization History: Immunization History [...] Independent Dressing Independent Toileting Independent Feeding Independent Cook [place] Independent Med Delivery whole Wound Care Documentation [...] Inpatient Status Date: Readmission Risk Assessment Score: [facility] RISK OF UNPLANNED READMISSION 2.0 12.4 Total Score Discharging to Facility/ Agency Name: Address: Phone: Fax: Dialysis Facility (if applicable) Name: Address: Dialysis Schedule: Phone: Fax: [employer] signature: {Esignature:325847414} PHYSICIAN SECTION Prognosis: {Prognosis:4708754532} Condition at Discharge: { Patient Condition:419383970} Rehab Potential (if transferring to Rehab): {Prognosis:2707293726} Recommended Labs or Other Treatments After Discharge: Physician Certification: I certify the above information and transfer of Tosha Mcneal is necessary for the continuing treatment of the diagnosis listed and that she requires {Admit to Appropriate Level of Care:09295} for {GREATER/LESS:732982108} 30 days. Update Admission H&P: {CHP DME Changes in HandP:083401157} PHYSICIAN SIGNATURE: {Esignature:788025705} documented in this encounterBon [facility]05-04-[facility] History of Present illness Narrative* Chacha Mcarhtur RN - 03/10/2025 6:34 AM EDT Pts morning labs resulted with a potassium of 3.2 and a magnesium of 1.4. Monorail Helper notified provider,see new orders. * Carlos Garcia [...] for acute cholecystitis. [facility] and was evaluated by general surgery for [...] Infusions: sodium chloride Stopped (03/07/25 0619) dextrose INPUT/OUTPUT: In: 480 [P.O.:480] Out: 530 [Urine:250; Drains:280] Date 03/09/25 0000 - 03/09/25 8064 Shift 2050-4972 5588-8486 7650-1049 24 Hour Total INTAKE Shift Total(mL/kg) OUTPUT Drains(mL/kg) 70(0.7) 20(0.2) 90(0.9) Shift Total(mL/kg) 70(0.7) 20(0.2) 90(0.9) Weight (kg) 103 103 103 103 LABORATORY RESULTS: BLOOD GASES: No results for input(s): POCPH , POCPCO2 , POCPO2 , POCHCO3 , PJRI2CKL in the last 72 hours. COMPLETE BLOOD COUNTS: Recent Labs 03/07/2544903/08/25 0640 03/09/25 0738 WBC 11.3 9.2 8.9 HGB 11.3* [...] 72 hours. BASIC METABOLIC PROFILE: Recent Labs 03/07/2544903/08/25 0640 03/09/25 0738 NA 144 142 140 K [...] Successful ultrasound fluoroscopic guided placement of 8 Malagasy cholecystostomy tube. US ABDOMEN LIMITED Specify organ? [...] from the original note were not included. [facility] Office: [phone] Juan F Medina DO, Sami Ghosh DO, [...] Edwin Dial MD, Darryl Saha MD, Elinor Granados, [place], Sloane Interiano, [place], Vitor Qureshi, [place], Beth Sherwood, [facility], Vale Sesay, [place], Jojo Lama, [place], Melida Nick, [place], Desire Sarmiento, [place], Katrin Haywood, PAJavanC, Vika Cuevas, [place], Rosa Baez, [place], Serenity Mata, [place], Aleida Flores,[place], Roscoe Licea PAJavanC, Karis Card, [place], Milady Villar, [facility], Codie Serra, [place], Bren Palomo, [place], Lakshmi Drake, MOS[place]GIACH [facility] IN-PATIENT SERVICE [facility] Progress Note 03/09/2025 11:49 AM Name: Tosha Mcneal Acct: [id number] Room: [address] [place] [address] Day: 6 Admit Date: 03/03/2025 11:22 AM PCP: Wild Centeno DO Code Status: Full Code Subjective: C/C: [...] for acute cholecystitis. She was brought to [facility] and was evaluated by general surgery for [...] F (37.4 C) Recent Labs 03/08/25 1521 03/08/25200803/09/25 0830 03/09/25 1128 POCGLU 405* 288* 259* 288* I/O (24Hr): Intake/Output Summary (Last 24 hours) at 03/09/2025 1149 Last data filed at 03/09/2025 1000 Gross per 24 hour Intake 480 ml Output 220 ml Net 260 ml Labs: Hematology: Recent Labs 03/07/25 0450 03/08/25 0640 03/09/25 0738 WBC 11.3 9.2 8.9 RBC 4.02 4.56 4.58 HGB 11.3* 12.8 12.8 HCT 38.5 42.7 42.5 MCV 95.8 93.6 92.8 MCH 28.1 28.1 27.9 MCHC 29.4 30.0 30.1 RDW 16.2* 16.0* 15.9* PLT 152 209 233 MPV 10.6 10.7 9.8 Chemistry: Recent Labs 03/07/25 0450 03/07/25 0928 03/08/25 0640 03/09/25 0738 NA 144 -- 142 140 K [...] -- 1.21 -- -- Recent Labs 03/08/25 0611 03/08/25 0640 03/08/25 1104 03/08/25 1521 03/08/25 2009 03/09/25 0738 03/09/25 0830 03/09/25 1128 AST -- 18 [...] 04:25 AM PBEA 1.8 03/05/2025 04:25 AM [id number] 95.2 03/05/2025 04:25 AM FIO2 10.0 03/05/2025 [...] Successful ultrasound fluoroscopic guided placement of 8 Malagasy cholecystostomy tube. US ABDOMEN LIMITED Specify organ? [...] PT - 03/08/2025 9:33 AM EDT Facility/Department: [facility] Physical Therapy Initial Evaluation Patient [...] switched to IV Zosyn and transferred to [facility]. Past Medical History: has a past [...] Within Functional Limits Other (Comment): pt c/o 5/10 pain at cholecystostomy tube site; agreeable to [...] Level of Assist for Transfers: Independent Active Farm Specialist: Yes Mode of Transportation: Truck Occupation: Retired [...] Individual Minutes Time In: 0815 Time Out: 909 Minutes: 55 Time Code Minutes Timed Code [...] switched to IV Zosyn and transferred to [facility]. Patient was subsequently brought to [facility] Upon admission, pt was A&O x [...] [x] PPI Agent 40 twice daily, [] [id number], [] Sucralfate, [] Other: Glycemic control: Medium [...] -- -- 67 19 96 % -- 03/07/251999 (!) 152/54 98 F (36.7 C) Oral 68 22 94 % -- 03/07/251937 -- -- -- 70 20 95 % [...] PROPHYLAXIS: Stress ulcer: [x] PPI Agent [] [id number] [] Sucralfate [] Other: VTE: [] Enoxaparin [...] history and exam findings with the resident/fellow/medical student/CENTRAL SUPPLY SUPERVISOR/PA. I have seen and examined the patient and the hernandez elements of the encounter have been performed by me. I agree with the assessment, plan and orders as documented by the resident/fellow/medical student/CENTRAL SUPPLY SUPERVISOR/PA With changes made to the note as [...] Occupational Therapy Occupational Therapy Initial Evaluation Facility/Department: [facility] Patient Name: Tohsa Mcneal : 1950 Date of Service: 03/07/2025 [...] switched to IV Zosyn and transferred to [facility]. Patient was subsequently brought to [facility] Upon admission, pt was A&O x [...] Devices: Grab Bars - toilet, Sock-Aid Hard, Tape Cutter, Walker Basket Assessment Performance deficits / Impairments: [...] How much help for eating meals?: None AM-[facility] Inpatient Daily Activity Raw Score: 15 AM-[facility] Inpatient ADL T-Scale Score : 34.69 ADL [...] Level of Assist for Transfers: Independent Active Farm Specialist: Yes Mode of Transportation: Truck Occupation: Retired [...] chair, pt required TA to adjust B waste specialist socks Toileting: Maximum assistance Toileting Skilled Clinical Factors: pt required CGA for toilet transfer with RW and unilateral support on R grab bar, required TA to complete lisa hygiene. Balance Balance Sitting: Intact;Without support (pt seated in recliner chair and on toilet ~20 minutes total, SBA-SUP overall.) Standing: Intact;With support (pt standing with RW support at [facility] for safety, completed grooming atsink CGA ~5 [...] home safety/fall prevention, energyconservation, and non-pharmaceutical pain manager management to improve overall independence in functional tasks. [...] - 03/07/2025 Room and Bed Number - 3008/3008-01 Hospital Day - 4 HPI: History was [...] switched to IV Zosyn and transferred to [facility]. Patient was subsequently brought to [facility] Upon admission, pt was A&O x [...] [x] PPI Agent 40 twice daily, [] [id number], [] Sucralfate, [] Other: Glycemic control: Medium [...] PROPHYLAXIS: Stress ulcer: [x] PPI Agent [] [id number] [] Sucralfate [] Other: VTE: [] Enoxaparin [...] history and exam findings with the resident/fellow/medical student/CENTRAL SUPPLY SUPERVISOR/PA. I have seen and examined the patient and the hernandez elements of the encounter have been performed by me. I agree with the assessment, plan and orders as documented by the resident/fellow/medical student/CENTRAL SUPPLY SUPERVISOR/PA With changes made to the note as [...] 1:05 PM * Anna Pyle APRN - [place] - 03/06/2025 11:26 AM EDT Images from [...] Attending Note I have reviewed the above [facility] note(s). I have seen and [...] - 03/06/2025 Room and Bed Number - 3008/3008-01 Hospital Day - 3 HPI: History was [...] switched to IV Zosyn and transferred to [facility]. Patient was subsequently brought to [facility] Upon admission, pt was A&O x [...] [x] PPI Agent 40 twice daily, [] M0Mtepe, [] Sucralfate, [] Other: Glycemic control: Medium [...] -- 70 19 91 % -- 03/05/25 224 127/80 -- -- 79 27 93 % -- 03/05/252229 -- -- -- 73 22 94 % -- 03/05/25 221 (!) 134/49 -- -- 72 18 90 % -- 03/05/252199 (!) 131/39 -- -- 73 20 92 % -- 03/05/252144 (!) 112/41 -- -- 71 18 95 % -- 03/05/252129 (!) 122/48 -- -- 71 18 91 % -- 03/05/252114 (!) 114/34 -- -- 74 20 91 [...] PROPHYLAXIS: Stress ulcer: [x] PPI Agent [] [id number] [] Sucralfate [] Other: VTE: [] Enoxaparin [...] history and exam findings with the resident/fellow/medical student/CENTRAL SUPPLY SUPERVISOR/PA. I have seen and examined the patient and the hernandez elements of the encounter have been performed by me. I agree with the assessment, plan and orders as documented by the resident/fellow/medical student/CENTRAL SUPPLY SUPERVISOR/PA With changes made to the note as [...] and laboratory values were reviewed and confirmed. PATRICIAM * Dong Zheng MD - 03/05/2025 10:22 AM EDT Images from the original note were not included. [place] [facility] Progress Note Date: 03/05/2025 Patient name: Tosha [...] When compared with ECG of 03-Mar-2025 11:14, DE interval has decreased T wave inversion no [...] recommendations. Cecilia Low MD Fellow, cardiovascular diseases [facility] 03/05/2025 I performed a history and physical [...] - 03/05/2025 Room and Bed Number - 3008/3008- Hospital Day - 2 HPI: History was [...] switched to IV Zosyn and transferred to [facility]. Patient was subsequently brought to [facility] Upon admission, pt was A&O x [...] [x] PPI Agent 40 twice daily, [] F9Jojgx, [] Sucralfate, [] Other: Glycemic control: Medium dose corrective algorithm Spontaneous breathing trial: N/A Bowel regimen/urine output: 1.14 L Indwelling catheter/lines: Came in with Mon's. Urine output 662 De-escalation: Mon catheter if patient is no longer needing it. Gram culture from drainage grew gram negative rods Labs show troponin 108-101-112. Per cardiology type II FL. Lipase 23 Lactic acid 2.3-1.4 Pro time [...] Axillary 80 22 93 % -- 03/04/25 234 -- -- -- -- -- 94 % -- 03/04/25 2330 (!) 110/38 -- -- 80 19 94 % -- 03/04/252322 -- -- -- 80 24 95 % -- 03/04/25 231 (!) -- -- 78 22 94 % -- 03/04/252299 (!) -- -- 78 22 94 % -- 03/04/252244 (!) -- -- 77 22 94 % -- 03/04/252229 (!) 86/35 -- -- 81 24 94 % -- 03/04/252214 119/84 -- -- 88 18 96 % -- 03/04/252199 (!) -- -- 83 23 96 % -- [...] PROPHYLAXIS: Stress ulcer: [x] PPI Agent [] [id number] [] Sucralfate [] Other: VTE: [] Enoxaparin [...] been diagnosed before. - Patient does follow accounting system expert but states that she follows just for [...] - Will obtain renal ultrasound. - Strict BUREK monitoring. - Cultures negative so far. UA [...] Heme: Recent Labs 03/03/25 1502 03/04/25 0349 03/05/25456 HGB 12.6 12.7 11.9 stable PT/INR: Lab [...] - most recent BGL is Recent Labs 03/03/25221403/04/2534803/05/25 0457 GLUCOSE 205* 191* 251* MSK: N/A Skin: [...] Glucose: Recent Labs 03/03/25 1240 03/03/25 1502 03/03/25221403/04/25 0349 03/05/25 0457 GLUCOSE 224* 219* 205* [...] IntraVENous Q12H Continuous Infusions: norepinephrine 12 mcg/min (03/05/25711) VASOpressin 0.03 Units/min (03/05/25711) sodium chloride Stopped (03/05/25200) lactated ringers 100 mL/hr at 03/05/25711 dextrose PRN Meds: HYDROmorphone, 0.5 mg, Q4H [...] history and exam findings with the resident/fellow/medical student/CENTRAL SUPPLY SUPERVISOR/PA. I have seen and examined the patient and the hernandez elements of the encounter have been performed by me. I agree with the assessment, plan and orders as documented by the resident/fellow/medical student/CENTRAL SUPPLY SUPERVISOR/PA With changes made to the note as [...] switched to IV Zosyn and transferred to [facility]. Patient was subsequently brought to [facility] Upon admission, pt was A&O x [...] [x] PPI Agent 40 twice daily, [] J7Johtm, [] Sucralfate, [] Other: Glycemic control: Medium dose corrective algorithm Spontaneous breathing trial: N/A Bowel regimen/urine output: 1.14 L Indwelling catheter/lines: Came in with Mon's. De-escalation: Mon catheter if patient is no longer needing it. Labs show troponin [id number] Lipase 23 Lactic acid 2.3 Pro time [...] -- -- -- -- 03/04/25 0130 (!) 98/ -- -- 72 15 92 % -- [...] -- -- 74 18 93 % -- 03/03/251999 (!) 118/47 97.8 F (36.6 C) Axillary [...] PROPHYLAXIS: Stress ulcer: [x] PPI Agent [] O6Vaqev [] Sucralfate [] Other: VTE: [] Enoxaparin [...] been diagnosed before. - Patient does follow accounting system expert but states that she follows just for [...] needed. Recent Labs 03/03/25 1240 03/03/25 1502 03/03/25221403/04/25 0349 NA 141 138 140 141 K [...] recent BGL is Recent Labs 03/03/25 1502 03/03/25221403/04/25 0349 GLUCOSE 219* 205* 191* MSK: N/A [...] Glucose: Recent Labs 03/03/25 1240 03/03/25 1502 03/03/25221403/04/25 0349 GLUCOSE 224* 219* 205* 191* PT/INR: Lab Results Component Value Date/Time PROTIME 18.2 03/03/2025 03:02 PM INR 1.5 03/03/2025 03:02 PM PTT: No results found for: APTT Comprehensive Metabolic Profile: Recent Labs 03/03/25 1240 03/03/25 1502 03/03/25221403/04/25 0349 NA 141 138 140 141 K [...] history and exam findings with the resident/fellow/medical student/CENTRAL SUPPLY SUPERVISOR/PA. I have seen and examined the patient and the hernandez elements of the encounter have been performed by me. I agree with the assessment, plan and orders as documented by the resident/fellow/medical student/CENTRAL SUPPLY SUPERVISOR/PA With changes made to the note as [...] any concerns. Thank you. Dione Garcia RPh, [facility] Clinical Pharmacist Medication Management 03/03/2025 4:18 PM [...] resident. Patient was just brought in from [facility] on arrival patient is alert and [...] oral intake went to emergency room in [place] last night found to have mild lactic [...] BOO she had Mon's catheter placed in [place]ia band and cuff cutter. Creatinine was initially greater than 3 BUN [...] and hypovolemia Troponin elevation possible non-ST elevation FL. proBNP elevation Diarrhea by history. History of [...] MD 03/03/2025 11:53 AM documented in this encounterCar[facility]04-28-[facility] NotePROCEDURE: ULTRASOUND GUIDED CHOLECYSTOSTOMY TUBE PLACEMENT [...] procedure including the risk, benefits, and alternatives. Beauty protocol was followed. Sterile gowns, masks, hats and gloves utilized for maximal sterile barrier. A suitable skin site was prepped and draped in sterile fashion following ultrasound localization. An Accustick needle and then she was advanced under ultrasound guidance into the gallbladder and a 0.035 guidewire was used to place a 8 Malagasy cholecystostomy tube after the fascial tract was [...] Successful ultrasound fluoroscopic guided placement of 8 Malagasy cholecystostomy tube. Interpreted by: Tanner Baez MD Signed by: Tanner Baez MD 03/04/25 [facility]Mem[facility]04-[facility]-2025 NoteCardiovascular Medicine [facility] SUBJECTIVE Chief Complaint Patient presents with Edema [...] , Rfl: ergocalciferol (Vitamin D-2) 1.25 MG (63662 Units) capsule, Take 1 capsule by mouth [...] Palpations: Abdomen is soft. (more content not included)...[facility]04-15-2025 Note Patient requested an appointment due [...] leg swelling. Respiratory: Positive for shortness of breath.[facility]04-04-2025 Miscellaneous Notes* Telephone Encounter - Wild Centeno DO - 02/08/2025 11:02 AM EDT Rx sent in. She is due for a diabetic /CV recheck documented in this encounterSelect [facility] Telephone encounter Note* Telephone Encounter - Wild Centeno DO - 02/08/2025 11:02 AM EDT Rx sent in. She is due for a diabetic /CV recheck [facility]03-13-2025 NoteCardiovascular Medicine [facility] SUBJECTIVE Chief Complaint Patient presents with [...] , Rfl: ergocalciferol (Vitamin D-2) 1.25 MG (29558 Units) capsule, Take 1 capsule by mouth [...] warm and dry. Ne (more content not included)...[facility]03-13-2025 NotePatient here for 2 week follow [...] ankles. Patient denies chest pain, dizziness,or bleeding. Meeranet states she see her oncologist and was told she has a spot on her left kidney. Patient state she will have another scan on her kidney in 3 months. Review of Systems Cardiovascular: Positive for dyspnea on exertion and leg swelling. All other systems reviewed and are negative.[facility] 01-16-2025 NoteUrology Office/Clinic Note Chief Complaint [...] Unspecified hydronephrosis) CT AP w con 12/13/23 [facility] - Unremarkable kidneys and bladder. Personal review: Minimal R hydro. CT AP w con 12/11/24 [facility] - No enhancing renal mass renal mass. [...] Information Ramsey JUAREZ, Shavon Lin, URL, [facility] [address] [place] [address]- [phone] Additional Instructions: 3 mos w/ GRACE Patient [...] Stroke: Mother. Immunizations Vaccin (more content not included)...[facility] CenterComment on above:Result Comment: Electronically Signed By: Shavon Mustafa MD\.br\Date and Time Signed: 01/16/25 10:28EDT\.br\Electronically Co-Signed By: Chaya Alicea\.br\Date and Time Co-Signed: 01/16/25 10:08 [id number] NotePatient Education Urology Hydronephrosis Hydronephrosis is the [...] Follow these instructions at home: ??? Take cdyh-rni-rcghvoa and prescription medicines only as told by [...] provider. Document Revised: 02/10/2021 Document Reviewed: 02/10/2021 [employer] Patient Education ? 2023 [place].[facility] 01-03-2025 NotePatient here for 6 mo follow [...] pain. All other systems reviewed and are negative.[facility] 01-03-2025 NoteCardiovascular Medicine [place] [facility] SUBJECTIVE Chief Complaint Patient presents with [...] , Rfl: ergocalciferol (Vitamin D-2) 1.25 MG (40886 Units) capsule, Take 1 capsule by mouth [...] No results found f (more content not included)...[facility]02-19-2025 Evaluation note* Diagnosis Onset Date Resolution [...] 12:59pm Melanoma chronic December 26, 2024 12:59pm [facility] Work Phone: [phone]) 854-370410-14-2024 Miscellaneous Notes* Telephone Encounter - Lesliemehdi Lawton - 08/20/2024 1:30 PM EDT Vitiamin d 2 needs sent as well documented in this encounterSelect [facility]10-14-2024 Telephone encounter Note* Telephone Encounter - Leslie Lawton - 08/20/2024 1:30 PM EDT Vitiamin d 2 needs sent as well [facility] [employer] [id number] History of Present illness Narrative* Giuseppe Jama APRN-AUTUMN - 08/16/2024 3:20 PM EDT Images from the original note were not included. [address] [place] [place] [id number] SUBJECTIVE: Patient ID: Tosha Mcneal is a [...] procedures Follow-up: Next scheduled Sooner if needed Giuseppe Jama, VINCE-[place]HGIACH 08/20/24 1252 documented in this encounterSelect [facility]09-09-2024 History of Present illness Narrative* Wild Pendletondesijorje, DO - 07/16/2024 8:30 AM EDT Subjective Patient ID: Tosha Mcneal is a 73 y.o. female. Alpa presents today for a general recheck for multiple problems. She is taking her medications except her insulin. She is not having any side effects. She saw the accounting system expert who increased her furosemide to twice a [...] 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 ([facility]) - Hemoglobin A1c; Future - Microalbumin - Albumin: Creatinine Urine Ratio; Future Last GFR was 73 which is stage 2 chronic kidney disease. Check A1c and ACR. Type 2 diabetes mellitus with stage 3a chronic kidney disease, with long-term current use of insulin ([facility]) - TSH; Future Check TSH. Enlarged pituitary gland ([facility]) Check TSH Morbid obesity ([facility]) Check TSH. She would benefit from weight loss. It is contributing to diabetes, high blood pressure and high cholesterol. Other orders - furosemide (LASIX) 40 mg tablet; Take 1 tablet (40 mg total) by mouth daily. - clobetasoL (TEMOVATE) 0.05 % ointment; Apply 1 Application topically in the morning and 1 Application before bedtime. documented in this encounterSelect Medical [facility]ty [facility]08-07-2024 Miscellaneous Notes* Telephone Encounter - Amanda Poole CMA - 06/13/2024 12:29 PM EDT Patient was prescribed a cream for dryness of her skin on the outside of private area. She said Irene prescribed it years ago. Can you please look and see what it might be and send a script in for this? documented in this encounterSelect Medical [facility]ty [facility]08-07-2024 Telephone encounter Note* Telephone Encounter - Amanda Poole CMA - 06/13/2024 12:29 PM EDT Patient was prescribed a cream for dryness of her skin on the outside of private area. She said Irene prescribed it years ago. Can you please look and see what it might be and send a script in for this? [facility]07-16-2024 Miscellaneous Notes* Telephone Encounter - Leslie Lawton - 05/22/2024 11:44 AM EDT Patient called and is due for a mammo and would like [facility] sent [facility]. Please and thank you documented in this encounterSelect Medical Specialty [facility]07-16-2024 Telephone encounter Note* Telephone Encounter - Leslie Lawton - 05/22/2024 11:44 AM EDT Patient called and is due for a mammo and would like it sent to the [facility]. Please and thank you [facility]05-14-2024 History of Present illness Narrative* Wild Centeno DO - 03/20/2024 11:10 AM EDT Subjective SUBJECTIVE: [...] Do you have a durable power of estate planning attorney?: Yes Cognitive Screening Do you have [...] 1 year (around 03/20/2025). documented in this encounterMemorial HospitalJAZD Markets [facility] [id number] History of Present illness Narrative* Wild Centeno [...] disease, with long-term current use of insulin ([facility] - Comprehensive metabolic panel; Future - Hemoglobin A1c; Future - Magnesium; Future - Parathyroid Hormone, intact; Future - Phosphorus; Future - Vitamin D 25 hydroxy; Future Check A1c and CKD labs Gout, unspecified cause, unspecified chronicity, unspecified site - Uric acid; Future Check uric acid Mixed hyperlipidemia - Lipid panel; Future jheck lipid panel Morbid obesity ([facility]) She is obese. It is contributing to DM HTN and high cholesterol . She would benefit from wt loss. 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 ([facility]) F/U with specialists as dir. documented in this encounterSelect Medical [facility]ty [facility]02-16-2024 History of Present illness Narrative* Wild Centeno DO - 12/23/2023 9:40 AM EST Subjective [...] over time. She should stay on it care home. 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 ([facility]) GFR reviewed and is stable at 55. No dosing adjustments required. Other orders - allopurinoL (ZYLOPRIM) 100 mg tablet; Take 1 tablet (100 mg total) by mouth in the morning. Startafter flare up resolves. documented in this encounterGifford Medical CenterTexas [facility]06-07-2023 Progress note Author Rose Ohara [facility] April 13, 2023 5:59pm Note Date/Time April 13, 2023 9:30a m [facility] at [address] [address] Hem/Onc Follow Up Note - OP Signed Patient: Tosha Mcneal MR#: [id number] : 1950 Acct:[id number] Age/Sex: 72 / F Type: REG RCR [...] She is leaving for a cruise to [place] this month. Continue 4 month followup with [...] chest abdomen pelvis and labs are unremarkable. Gneevieve set up her right axillary ultrasound in [...] related toxicities. Now following with dermatology at [facility] with no recurrence on skin exam. Surveillance ultrasound right axilla without recurrence. She will have routing f/u with mt in [address] CAP and [...] proceeded with wide local excision 09/05/2020 at [facility]. Outside review at [facility] showed at least 2.1 cm Breslow depth melanoma with 2 cm negative margins. She was referred to Dr. Diallo Berger at [facility]. Right axillary sentinel lymph node biopsy [...] liver lesion. Her case was presented at [facility] cutaneous tumor board on 1prior to her metastatic staging. Discussion of referral to medical oncology fordiscussion of immunotherapy. The patient is now returning for medical oncology follow-up after review of all prior pathology and imaging. BRAF status is stillpending. She has healed well. She is a 10-year history of diabetes. She resides in [facility]. Today we reviewed immunotherapy counseling [...] Therapies: 1. Initial wide local excision at [facility] 09/05/[address] Hernando Mccartney 2. Right sentinel lymph node biopsy 11/28/2020 at [facility] by Dr. Diallo Berger 3. Delay of [...] cit 4.5 mg-lutein 2.5 mg-zeaxan chew tablet ([facility]) 1 tab PO DAILY eye [...] % (Auto) 62.3, Lymph % (Auto) 26.0, [place] % (Auto) 8.6, Eos % (Auto) 2.2, Baso % (Auto) 0.9, Nucleat RBC Rel Count 0.1, Neut # (Auto) 4.3, Lymph # (Auto) 1.8, [place] # (Auto) 0.6, Eos # (Auto) 0.2, [...] study. Impression dictated by: Miki Kruse Jr. DPabloOPablo04/07/2023 8:57 AM Assessment and Plan - TNM Staging Staging: Stage: pIIIC ([id number]) Melanoma 5 year survival: 69% (1) Melanoma [...] without extracapsular extension. Dr. Diallo Berger at [facility] surgical oncology group ordered metastatic staging with [...] for coordination of care (as documented) and trwx-bu-fifj counseling of patient and/or family. Dictated By: Rose Ohara MD DD/ 0929 Signed By: <Electronically signed by MD Rose Ohara> 04/13/23 [address] [facility] Work Phone: 1(704) 831-632902-16-2023 Progress note Author Rose Ohara [facility] December 23, 2022 11:01am Note Date/Time December 23, 2022 9:06am [facility] at [address] [address] Hem/Onc Follow Up Note - OP Signed Patient: Tosha Mcneal MR#: [id number] : 1950 Acct:[id number] Age/Sex: 72 / F Type: REG RCR [...] related toxicities. Now following with dermatology at [facility] with no recurrence on skin exam. Surveillance ultrasound right axilla without recurrence. She will have routing f/u with mt in [address] CAP and [...] proceeded with wide local excision 09/05/2020 at [facility]. Outside review at [facility] showed at least 2.1 cm Breslow depth melanoma with 2 cm negative margins. She was referred to Dr. Diallo Berger at [facility]. Right axillary sentinel lymph node biopsy [...] liver lesion. Her case was presented at [facility] cutaneous tumor board on 12/15/2020rior to her metastatic staging. Discussion of referral to medical oncology fordiscussion of immunotherapy. The patient is now returning for medical oncology follow-up after review of all prior pathology and imaging. BRAF status is stillpending. She has healed well. She is a 10-year history of diabetes. She resides in [facility]. Today we reviewed immunotherapy counseling [...] Therapies: 1. Initial wide local excision at [facility] 09/05/[address] Hernando Mccartney 2. Right sentinel lymph node biopsy 11/28/2020 at [facility] by Dr. Diallo Berger 3. Delay of [...] % (Auto) 60.2, Lymph % (Auto) 24.8, [place] % (Auto) 11.9, Eos % (Auto) 1.9, Baso % (Auto) 1.2, Nucleat RBC Rel Count 0.2, Neut # (Auto) 4.1, Lymph # (Auto) 1.7, [place] # (Auto) 0.8, Eos # (Auto) 0.1, [...] pelvis. Impression dictated by: Miki Kruse Jr., D.OPablo12/21/2022 1:50 PM Assessment and Plan - TNM Staging Staging: Stage: pIIIC ([id number]) Melanoma 5 year survival: 69% (1) Melanoma [...] without extracapsular extension. Dr. Diallo Berger at [facility] surgical oncology group ordered metastatic staging with [...] for coordination of care (as documented) and nhhv-jq-qwzx counseling of patient and/or family. Dictated By: Rose Ohara MD DD/ Signed By: <Electronically signed by MD Rose Ohara> 12/23/22 1105 [facility] Work Phone: 1([phone]) 519-744011-17-2022 Progress note Author Rose Ohara [facility] September 23, 2022 10:21am Note Date/Time September 23, 2022 8:36am [facility] [place] [address] Hem/Onc Follow Up Note - OP Signed Patient: Tosha Mcneal MR#: [id number] : 1950 Acct:[id number] Age/Sex: 71 / F Type: REG RCR [...] related toxicities. Now following with dermatology at [facility] with no recurrence on skin exam. Surveillance ultrasound right axilla without recurrence. She will have routing f/u with mt in [address] CAP and [...] proceeded with wide local excision 09/05/2020 at [facility]. Outside review at [facility] showed at least 2.1 cm Breslow depth melanoma with 2 cm negative margins. She was referred to Dr. Diallo Berger at [facility]. Right axillary sentinel lymph node biopsy [...] liver lesion. Her case was presented at [facility] cutaneous tumor board on 12/15/2020rior to her metastatic staging. Discussion of referral to medical oncology fordiscussion of immunotherapy. The patient is now returning for medical oncology follow-up after review of all prior pathology and imaging. BRAF status is stillpending. She has healed well. She is a 10-year history of diabetes. She resides in [facility]. Today we reviewed immunotherapy counseling [...] Therapies: 1. Initial wide local excision at [facility] 09/05/[address] Hernando Mccartney 2. Right sentinel lymph node biopsy 11/28/2020 at [facility] by Dr. Diallo Berger 3. Delay of [...] % (Auto) 65.7, Lymph % (Auto) 21.6, [place] % (Auto) 9.7, Eos % (Auto) 2.0, Baso % (Auto) 1.0, Neut # (Auto) 4.5, Lymph # (Auto) 1.5, [place] # (Auto) 0.7, Eos# (Auto) 0.1, Baso [...] Plan - TNM Staging Staging: Stage: pIIIC ([id number]) Melanoma 5 year survival: 69% (1) Melanoma [...] without extracapsular extension. Dr. Diallo Berger at [facility] surgical oncology group ordered metastatic staging with [...] for coordination of care (as documented) and qcse-tq-vete counseling of patient and/or family. Dictated By: Rose Ohara MD DD/ 0835 Signed By: <Electronically signed by MD Rose Ohara> 09/23/22 1021 [facility] Work Phone: 1([phone]) 153-149208-25-2022 Progress note Author Rose Ohara [facility] July 01, 2022 8:35pm Note Date/Time July 01, 2022 10 :39am [facility] [place] [address] Hem/Onc Follow Up Note - OP Signed Patient: Tosha Mcneal MR#: [id number] : 1950 Acct:[id number] Age/Sex: 71 / F Type: REG RCR [...] related toxicities. Now following with dermatology at [facility] with no recurrence on skin exam. Surveillance ultrasound right axilla without recurrence. She will have routing f/u with mt in [address] CAP and [...] proceeded with wide local excision 09/05/2020 at [facility]. Outside review at [facility] showed at least 2.1 cm Breslow depth melanoma with 2 cm negative margins. She was referred to Dr. Diallo Berger at [facility]. Right axillary sentinel lymph node biopsy [...] liver lesion. Her case was presented at [facility] cutaneous tumor board on 12/15/2020rior to her metastatic staging. Discussion of referral to medical oncology fordiscussion of immunotherapy. The patient is now returning for medical oncology follow-up after review of all prior pathology and imaging. BRAF status is stillpending. She has healed well. She is a 10-year history of diabetes. She resides in [facility]. Today we reviewed immunotherapy counseling [...] Therapies: 1. Initial wide local excision at [facility] 09/05/[address] Hernando Mccartney 2. Right sentinel lymph node biopsy 11/28/2020 at [facility] by Dr. Diallo Berger 3. Delay of [...] Negative for environmental allergies and food allergies. [facility] - History Attestation statement: The following [...] cit 4.5 mg-lutein 2.5 mg-zeaxan chew tablet ([facility]) 1 tab PO DAILY eye [...] % (Auto) 66.8, Lymph % (Auto) 18.8, [place] % (Auto) 9.5, Eos % (Auto) 3.7, Baso % (Auto) 1.2, Neut # (Auto) 5.6, Lymph # (Auto) 1.6, [place] # (Auto) 0.8, Eos #(Auto) 0.3, Baso [...] Plan - TNM Staging Staging: Stage: pIIIC ([id number]) Melanoma 5 year survival: 69% (1) Melanoma [...] without extracapsular extension. Dr. Diallo Berger at [facility] surgical oncology group ordered metastatic staging with [...] for coordination of care (as documented) and nfez-gg-sbmw counseling of patient and/or family. Dictated By: Rose Ohara MD DD/ 1038 Signed By: <Electronically signed by MD Rose Ohara> 07/01/222034 [facility] Work Phone: [phone]) [phone] Progress note Author Rose Ohara [facility] April 01, 2022 1:09pm Note Date/Time March 31, 2022 1:30p m [facility] at [place] [id number] Hem/Onc Follow Up Note - OP Signed Patient: Tosha Mcneal MR#: [id number] : 1950 Acct:[id number] Age/Sex: 71 / F Type: REG RCR [...] related toxicities. Now following with dermatology at [facility] with no recurrence on skin exam. Surveillance ultrasound right axilla without recurrence. She will have routing f/u with mt in [address] CAP and [...] proceeded with wide local excision 09/05/2020 at [facility]. Outside review at [facility] showed at least 2.1 cm Breslow depth melanoma with 2 cm negative margins. She was referred to Dr. Diallo Berger at [facility]. Right axillary sentinel lymph node biopsy [...] liver lesion. Her case was presented at [facility] cutaneous tumor board on 12/15/2020rior to her metastatic staging. Discussion of referral to medical oncology fordiscussion of immunotherapy. The patient is now returning for medical oncology follow-up after review of all prior pathology and imaging. BRAF status is stillpending. She has healed well. She is a 10-year history of diabetes. She resides in [facility]. Today we reviewed immunotherapy counseling [...] Therapies: 1. Initial wide local excision at [facility] 09/05/[address] Hernando Mccartney 2. Right sentinel lymph node biopsy 11/28/2020 at [facility] by Dr. Diallo Berger 3. Delay of [...] cit 4.5 mg-lutein 2.5 mg-zeaxan chew tablet ([employer]) 1 tab PO DAILY 04/11/19 [History Confirmed [...] % (Auto) 64.5, Lymph % (Auto) 22.3, [place] % (Auto) 9.5, Eos % (Auto) 2.6, Baso % (Auto) 1.1, Neut # (Auto) 4.8, Lymph # (Auto) 1.7, [place] # (Auto) 0.7, Eos# (Auto) 0.2, Baso [...] Plan - TNM Staging Staging: Stage: pIIIC ([id number]) Melanoma 5 year survival: 69% (1) Melanoma [...] without extracapsular extension. Dr. Diallo Berger at [facility] surgical oncology group ordered metastatic staging with [...] for coordination of care (as documented) and yowp-ob-fmdr counseling of patient and/or family. Dictated By: Rose Ohara MD DD/ 1330 Signed By: <Electronically signed by MD Rose Ohara> 04/01/22 0623 [facility] Work Phone: [phone]) 250-317302-23-2022 Progress note Author Rose Ohara [facility] December 30, 2021 3:45pm Note Date/Time December 30, 2021 10:04[facility] [place] [facility] [address] [address] Hem/Onc Follow Up Note - OP Signed Patient: Tosha Mcneal MR#: [id number] : 1950 Acct:[id number] Age/Sex: 71 / F Type: REG RCR [...] related toxicities. Now following with dermatology at [facility] with no recurrence on skin exam. Surveillance ultrasound right axilla without recurrence. She will have routing f/u with mt in [address] CAP and [...] proceeded with wide local excision 09/05/2020 at [facility]. Outside review at [facility] showed at least 2.1 cm Breslow depth melanoma with 2 cm negative margins. She was referred to Dr. Diallo Berger at [facility]. Right axillary sentinel lymph node biopsy [...] liver lesion. Her case was presented at [facility] cutaneous tumor board on 1prior to her metastatic staging. Discussion of referral to medical oncology fordiscussion of immunotherapy. The patient is now returning for medical oncology follow-up after review of all prior pathology and imaging. BRAF status is stillpending. She has healed well. She is a 10-year history of diabetes. She resides in [facility]. Today we reviewed immunotherapy counseling [...] Therapies: 1. Initial wide local excision at [facility] 09/05/[address] Hernando Mccartney 2. Right sentinel lymph node biopsy 11/28/2020 at [facility] by Dr. Diallo Berger 3. Delay of [...] cit 4.5 mg-lutein 2.5 mg-zeaxan chew tablet ([employer]) 1 tab PO DAILY 04/11/19 [History Confirmed [...] Plan - TNM Staging Staging: Stage: pIIIC ([id number]) Melanoma 5 year survival: 69% (1) Melanoma [...] without extracapsular extension. Dr. Diallo Berger at [facility] surgical oncology group ordered metastatic staging with [...] for coordination of care (as documented) and rzuz-kl-whve counseling of patient and/or family. Dictated By: Rose Ohara MD DD/ 1004 Signed By: <Electronically signed by MD Rose Ohara> 12/30/21 5645 [facility] Work Phone: 1([phone]) [phone] Progress note Author Rose Ohara [facility] October 01, 2021 12:50pm Note Date/Time September 30, 2021 10:46am [facility] [place] [address] Hem/Onc Follow Up Note - OP Signed with Addenda Patient: Tosha Mcneal MR#: [id number] : 1950 Acct:[id number] Age/Sex: 70 / F Type: REG RCR Copies to: DO Bj Haddad MD Richard M Wiecek, MD~ ADDENDUM1 Correction 09/30/2021: Second line should note Clerical Clerk is Dr. Bj Robison in [place]--last skin exam 09/29/2021. Addendum Dictated By: MD [...] related toxicities. Now following with dermatology at [facility] with no recurrence on skin exam. Surveillance [...] proceeded with wide local excision 09/05/2020 at [facility]. Outside review at [facility] showed at least 2.1 cm Breslow depth melanoma with 2 cm negative margins. She was referred to Dr. Diallo Berger at [facility]. Right axillary sentinel lymph node biopsy [...] liver lesion. Her case was presented at [facility] cutaneous tumor board on 1prior to her metastatic staging. Discussion of referral to medical oncology fordiscussion of immunotherapy. The patient is now returning for medical oncology follow-up after review of all prior pathology and imaging. BRAF status is stillpending. She has healed well. She is a 10-year history of diabetes. She resides in [facility]. Today we reviewed immunotherapy counseling [...] Therapies: 1. Initial wide local excision at [facility] 09/05/[address] Hernando Mccartney 2. Right sentinel lymph node biopsy 11/28/2020 at [facility] by Dr. Diallo Berger 3. Delay of [...] cit 4.5 mg-lutein 2.5 mg-zeaxan chew tablet ([employer]) 1 tab PO DAILY 04/11/19 [History Confirmed [...] Plan - TNM Staging Staging: Stage: pIIIC ([id number]) Melanoma 5 year survival: 69% (1) Melanoma [...] without extracapsular extension. Dr. Diallo Berger at [facility] surgical oncology group ordered metastatic staging with [...] for coordination of care (as documented) and lmpk-va-pfdx counseling of patient and/or family. Dictated By: Rose Ohara MD DD/ 1046 Signed By: <Electronically signed by MD Rose Ohara> 09/30/21 [address] [facility] Work Phone: 1([phone]) 435-100208-23-2021 Progress note Author Rose Ohara [facility] June 29, 2021 6:03pm Note Date/Time June 29, 2021 10 :48am [facility] [place] [address] Hem/Onc Follow Up Note - OP Signed Patient: Tosha Mcneal MR#: [id number] : 1950 Acct:[id number] Age/Sex: 70 / F Type: REG RCR [...] proceeded with wide local excision 09/05/2020 at [facility]. Outside review at [facility] showed at least 2.1 cm Breslow depth melanoma with 2 cm negative margins. She was referred to Dr. Diallo Berger at [facility]. Right axillary sentinel lymph node biopsy [...] liver lesion. Her case was presented at [facility] cutaneous tumor board on 1prior to her metastatic staging. Discussion of referral to medical oncology fordiscussion of immunotherapy. The patient is now returning for medical oncology follow-up after review of all prior pathology and imaging. BRAF status is stillpending. She has healed well. She is a 10-year history of diabetes. She resides in [facility]. Today we reviewed immunotherapy counseling [...] Therapies: 1. Initial wide local excision at [facility] 09/05/[address] Hernando Mccartney 2. Right sentinel lymph node biopsy 11/28/2020 at [facility] by Dr. Diallo Berger 3. Delay of [...] ([facility]) 1 tab PO DAILY 04/11/19 [History [...] Plan - TNM Staging Staging: Stage: pIIIC ([id number]) Melanoma 5 year survival: 69% (1) Melanoma [...] without extracapsular extension. Dr. Diallo Berger at [facility] surgical oncology group ordered metastatic staging with [...] for coordination of care (as documented) and zpcr-yo-frkl counseling of patient and/or family. Dictated By: Rose Ohara MD DD/ 1048 Signed By: <Electronically signed by MD Rose Ohara> 06/29/21 1802 [facility] Work Phone: 1([phone]) 352-435705-17-2021 Progress note Author Rose Ohara [facility] March 23, 2021 9:29am Note Date/Time March 23, 2021 9:09a m [facility] [place] [address] Hem/Onc Follow Up Note - OP Signed Patient: Tosha Mcneal MR#: [id number] : 1950 Acct:[id number] Age/Sex: 70 / F Type: REG RCR [...] proceeded with wide local excision 09/05/2020 at [facility]. Outside review at [facility] showed at least 2.1 cm Breslow depth melanoma with 2 cm negative margins. She was referred to Dr. Diallo Berger at [facility]. Right axillary sentinel lymph node biopsy [...] liver lesion. Her case was presented at [facility] cutaneous tumor board on 12/15/2020rior to her metastatic staging. Discussion of referral to medical oncology fordiscussion of immunotherapy. The patient is now returning for medical oncology follow-up after review of all prior pathology and imaging. BRAF status is stillpending. She has healed well. She is a 10-year history of diabetes. She resides in [facility]. Today we reviewed immunotherapy counseling [...] Therapies: 1. Initial wide local excision at [facility] 09/05/[address] Hernando Mccartney 2. Right sentinel lymph node biopsy 11/28/2020 at [facility] by Dr. Diallo Berger 3. Delay of [...] % (Auto) 69.8, Lymph % (Auto) 16.9, [place] % (Auto) 9.7, Eos % (Auto) 2.4, Baso % (Auto) 1.2, Neut # (Auto) 5.1, Lymph # (Auto) 1.2, [place] # (Auto) 0.7, Eos # (Auto) 0.2, [...] Plan - TNM Staging Staging: Stage: pIIIC ([id number]) Melanoma 5 year survival: 69% (1) Melanoma [...] without extracapsular extension. Dr. Diallo Berger at [facility] surgical oncology group ordered metastatic staging with [...] for coordination of care (as documented) and yyqe-it-mbwr counseling of patient and/or family. Dictated By: Rose Ohara MD DD/ 7 Signed By: <Electronically signed by MD Rose Ohara> 03/23/21 0929 [facility] Work Phone: [phone]) [phone] Progress note Author Rose Ohara [facility] February 09, 2021 1:28pm Note Date/Time February 09, 2021 8:07 am [facility] at [place] [id number] Hem/Onc Follow Up Note - OP Signed Patient: Tosha Mcneal MR#: [id number] : 1950 Acct:[id number] Age/Sex: 70 / F Type: REG RCR [...] proceeded with wide local excision 09/05/2020 at [facility]. Outside review at [facility] showed at least 2.1 cm Breslow depth melanoma with 2 cm negative margins. She was referred to Dr. Diallo Berger at [facility]. Right axillary sentinel lymph node biopsy [...] liver lesion. Her case was presented at [facility] cutaneous tumor board on 1prior to her metastatic staging. Discussion of referral to medical oncology fordiscussion of immunotherapy. The patient is now returning for medical oncology follow-up after review of all prior pathology and imaging. BRAF status is stillpending. She has healed well. She is a 10-year history of diabetes. She resides in [facility]. Today we reviewed immunotherapy counseling [...] Therapies: 1. Initial wide local excision at [facility] 09/05/[address] Hernando Mccartney 2. Right sentinel lymph node biopsy 11/28/2020 at [facility] by Dr. Diallo Berger 3. Delay of [...] Plan - TNM Staging Staging: Stage: pIIIC ([id number]) Melanoma 5 year survival: 69% (1) Melanoma [...] without extracapsular extension. Dr. Diallo Berger at [facility] surgical oncology group ordered metastatic staging with [...] for coordination of care (as documented) and edah-vm-qnmy counseling of patient and/or family. Dictated By: Rose Ohara MD DD/ 6 Signed By: <Electronically signed by MD Rose Ohara> 02/09/21 [address] [facility] Work Phone: [phone]) [phone] Consult note Author Bang Greggeo [facility] October 01, 2020 11:21am Note Date/Time October 01, 2020 11:10am [facility] [place] [address] Hem/Onc Consult Note - OP Signed Patient: Tosha Mcneal MR#: [id number] : 1950 Acct:[id number] Age/Sex: 69 / F Type: REG RCR [...] 10-year history of diabetes. She resides in [facility]. [facility] - Medical History Medical History: Medical [...] refer her to Dr. Diallo Berger at [facility] surgical oncology group for his opinion. I will see her back at a later date. - Time with Patient Coordination of Care & Counseling Time: Greater than 50% of time spent with patient was for coordination of care (as documented) and mpky-dj-ghdd counseling of patient and/or family. Dictated By: Bang Nunez MD DD/ 1108 Signed By: <Electronically signed by MD Bang Nunez> 10/01/20 1121 [facility] Work Phone: Evaluation + Plan note No data available for this section [facility] evaluation note* Diagnosis Onset Date Resolution Status Diabetes mellitus chronic Encounter for antineoplastic immunotherapy chronic Enlarged pituitary gland chr onic Melanoma chronic [facility] Work Phone: Evaluation note* Diagnosis Onset Date Resolution Status Enlarged pituitary gland acu te Diabetes mellitus chronic Encounter for antineoplastic immunotherapy chronic Melanoma chronic [facility] Work Phone: Evaluation note* Diagnosis Onset Date Resolution Status Enlarged pituitary gland acu te Diabetes mellitus chronic Encounter for antineoplastic immunotherapy chronic Melanoma chronic Enlarged pituitary gland acu te Malignant melanoma of right upper limb, including shoulder acute Diabetes mellitus chronic [facility] Work Phone: Evaluation note* Diagnosis Aftercare following left knee joint replacement surgery- Primary Acute pain of left knee Stiffness of left knee Primary osteoarthritis of left knee documented in this encounter [facility] SystemsEvaluation note* Diagnosis Aftercare following left knee joint replacement surgery- Primary Acute pain of left knee Stiffness of left knee Primary osteoarthritis of left knee documented in this encounter [facility]* Diagnosis Aftercare following left knee joint replacement surgery- Primary Acute pain of left knee Stiffness of left knee Primary osteoarthritis of left knee documented in this encounter [facility] note* Diagnosis Medicare annual wellness visit, subsequent- Primary Screening for depression documented in this encounter [facility] [employer] SystemEvaluation note* Diagnosis Acute gout due to renal impairment involving toe of right foot- Primary 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 ([facility]) documented in this encounter [facility] [employer] System[facility] note* Diagnosis 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 ([facility]) documented in this encounter [facility] [employer] System[facility] note* Diagnosis Type 2 diabetes mellitus with stage 3a chronic kidney disease, with long-term current use of insulin ([facility])- Primary Gout, unspecified cause, unspecified chronicity, unspecified site Mixed hyperlipidemia Morbid obesity ([facility]) Morbid obesity 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 ([facility]) documented in this encounter [facility] System[facility] note* Diagnosis Encounter for screening mammogram for malignant neoplasm of breast- Primary documented in this encounter [facility] System[facility] note* Diagnosis 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 ([facility])- Primary Type 2 diabetes mellitus with stage 3a chronic kidney disease, with long-term current use of insulin ([facility]) Enlarged pituitary gland ([facility]) Morbid obesity ([facility]) Morbid obesity documented in this encounter [facility]* Diagnosis Lumbar paraspinal muscle spasm- Primary Other symptoms referable to back Lumbar back pain Lumbago Need for influenza vaccination Need for prophylactic vaccination and inoculation against influenza documented in this encounter [facility]* Diagnosis 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 ([facility]) documented in this encounter [facility]* Diagnosis Onset Date Resolution Status Admit Date Enlarged pituitary gland acute December 26, 2024 12:47pm Malignant melanoma of right upper limb, including shoulder acute F ebruary 2024 12:47pm Diabetes mellitus chronic Februar y 2024 12:47pm Enlarged pituitary gland acute December 26, 2024 12:59pm Diabetes mellitus chronic Februar y 2024 12:59pm Encounter for antineoplastic immunotherapy chronic December 26, 025 12:59pm Melanoma chronic December 26, 2024 12:59pm [facility] Work Phone: Evaluation note* Diagnosis Acute [...] Acute kidney failure, unspecified Sepsis associated hypotension (HCC) Unspecified septicemia Lactic acidosis Acidosis Hypovolemia [facility] Diagnosis Acute cholecystitis- Primary Essential hypertension Unspecified essential hypertension Hypokalemia Hypopotassemia Type 2 diabetes mellitus with stage 3a chronic kidney disease, with long-term current use of insulin ([facility]) Morbid obesity ([facility]) Morbid obesity 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 ([facility]) documented in this encounter [facility]* Diagnosis Cholecystitis- Primary Cholecystitis, unspecified Cholecystitis Cholecystitis, unspecified Acute cholecystitis due to biliary calculus Acute cholecystitis due to biliary calculus [facility] Diagnosis S/P laparoscopic cholecystectomy- Primary Other postprocedural status Morbid obesity ([facility]) Morbid obesity Hypersomnia Hypersomnia, unspecified Type 2 diabetes mellitus with stage 2 chronic kidney disease, with long-term current use of insulin ([facility]) Physical deconditioning Muscular wasting and disuse atrophy, not elsewhere classified Screening for depression [facility] Diagnosis Hypersomnia- Primary Hypersomnia, unspecified Excessive daytime sleepiness [facility] Diagnosis S/P cholecystectomy- Primary Other acquired absence of organ Type 2 diabetes mellitus with stage 2 chronic kidney disease, with long-term current use of insulin ([facility]) Localized swelling of left foot Irregular heart beat Unspecified cardiac dysrhythmia Other post infection and related fatigue syndromes Abnormal CBC Other abnormal blood chemistry Morbid obesity ([facility]) Morbid obesity Excessive daytime sleepiness [facility] Diagnosis Hypersomnia Hypersomnia, unspecified Excessive daytime sleepiness documented in this [facility]* Diagnosis History of cholecystectomy- Primary Other acquired absence of organ Diarrhea, unspecified type Morbid obesity ([facility]) Morbid obesity Lumbar spondylosis Lumbosacral spondylosis without myelopathy documented in this [facility] noteNo assessment information available [facility] Work Phone: Evaluation note* Diagnosis RONEN (obstructive sleep apnea)- Primary Obstructive sleep apnea (adult) (pediatric) Class 3 severe obesity due to excess calories with serious comorbidity and body mass index (BMI) of 40.0 to 44.9 in adult ([facility]) Essential hypertension, benign Nocturia documented in this [facility]* Diagnosis Degeneration of intervertebral disc of lumbar region with discogenic back pain- Primary [facility]* Diagnosis 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 ([facility]) [facility]* Diagnosis 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 ([facility]) documented in this encounter [facility] SystemInstructionsNot on filedocumented in this encounter [facility] [...] Care Everywhere. * Low Back Pain ED (Lithuanian) [facility] System[facility]ructionsNot on file documented in this encounter[facility] SystemInstructionsNot on file documented in this encounterPro[facility]ica Health SystemInstructionsNot on file documented in this encounterPro[facility]ica Health SystemInstructionsNot on file documented in this encounterProMedica Health SystemInstructionsNot on file documented in this encounterProMedica Health SystemInstructions* Attachments The following attachments cannot be sent through Care Everywhere. * High-fiber diet (Lithuanian) documented in [facility] SystemInstructionsNot on file documented in this encounterProMedica Health SystemInstructionsNot on file documented in this encounterProMedica Health SystemInstructionsNot on file documented in this encounterProMedica Health SystemProgress note Author Rose Ohara [facility] July 01, 2022 8:35pm Note Date/Time July 01, 2022 10 :39am [facility] [place] [address] Hem/Onc Follow Up Note - OP Signed Patient: Tosha Mcneal MR#: [id number] : 1950 Acct:[id number] Age/Sex: 71 / F Type: REG RCR [...] related toxicities. Now following with dermatology at [facility] with no recurrence on skin exam. Surveillance ultrasound right axilla without recurrence. She will have routing f/u with mt in [address] CAP and [...] proceeded with wide local excision 09/05/2020 at [facility]. Outside review at [facility] showed at least 2.1 cm Breslow depth melanoma with 2 cm negative margins. She was referred to Dr. Diallo Berger at [facility]. Right axillary sentinel lymph node biopsy [...] liver lesion. Her case was presented at [facility] cutaneous tumor board on 1prior to her metastatic staging. Discussion of referral to medical oncology fordiscussion of immunotherapy. The patient is now returning for medical oncology follow-up after review of all prior pathology and imaging. BRAF status is stillpending. She has healed well. She is a 10-year history of diabetes. She resides in [facility]. Today we reviewed immunotherapy counseling [...] Therapies: 1. Initial wide local excision at [facility] 09/05/[address] Hernando Mccartney 2. Right sentinel lymph node biopsy 11/28/2020 at [facility] by Dr. Diallo Berger 3. Delay of [...] % (Auto) 66.8, Lymph % (Auto) 18.8, [place] % (Auto) 9.5, Eos % (Auto) 3.7, Baso % (Auto) 1.2, Neut # (Auto) 5.6, Lymph # (Auto) 1.6, [place] # (Auto) 0.8, Eos #(Auto) 0.3, Baso [...] Plan - TNM Staging Staging: Stage: pIIIC ([id number]) Melanoma 5 year survival: 69% (1) Melanoma [...] without extracapsular extension. Dr. Diallo Berger at [facility] surgical oncology group ordered metastatic staging with [...] for coordination of care (as documented) and [id number] counseling of patient and/or family. Dictated By: Rose Ohara MD DD/ [id number] Signed By: <Electronically signed by MD Rose Ohara> 07/01/222034 [facility] Work Phone: Progress note Author Rose Ohara [facility] September 23, 2022 10:21am Note Date/Time September 23, 2022 8:36am [facility] at [address] [address] Hem/Onc Follow Up Note - OP Signed Patient: Tosha Mcneal MR#: [id number] : 1950 Acct:[id number] Age/Sex: 71 / F Type: REG RCR [...] related toxicities. Now following with dermatology at [facility] with no recurrence on skin exam. Surveillance [...] proceeded with wide local excision 09/05/2020 at [facility]. Outside review at [facility] showed at least 2.1 cm Breslow depth melanoma with 2 cm negative margins. She was referred to Dr. Diallo Berger at [facility]. Right axillary sentinel lymph node biopsy [...] liver lesion. Her case was presented at [facility] cutaneous tumor board on 12/15/2020rior to her metastatic staging. Discussion of referral to medical oncology fordiscussion of immunotherapy. The patient is now returning for medical oncology follow-up after review of all prior pathology and imaging. BRAF status is stillpending. She has healed well. She is a 10-year history of diabetes. She resides in [facility]. Today we reviewed immunotherapy counseling [...] Therapies: 1. Initial wide local excision at [facility] 09/05/[address] Hernando Mccartney 2. Right sentinel lymph node biopsy 11/28/2020 at [facility] by Dr. Diallo Berger 3. Delay of [...] % (Auto) 65.7, Lymph % (Auto) 21.6, [place] % (Auto) 9.7, Eos % (Auto) 2.0, Baso % (Auto) 1.0, Neut # (Auto) 4.5, Lymph # (Auto) 1.5, [place] # (Auto) 0.7, Eos# (Auto) 0.1, Baso [...] Plan - TNM Staging Staging: Stage: pIIIC ([id number]) Melanoma 5 year survival: 69% (1) Melanoma [...] without extracapsular extension. Dr. Diallo Berger at [facility] surgical oncology group ordered metastatic staging with [...] for coordination of care (as documented) and [id number] counseling of patient and/or family. Dictated By: Rose Ohara MD DD/ [id number] Signed By: <Electronically signed by MD Rose Ohara> 09/23/22 1021 [facility] Work Phone: Progress note Author Rose Ohara [facility] April 13, 2023 5:59pm Note Date/Time April 13, 2023 9:30a m [facility] [place] [address] Hem/Onc Follow Up Note - OP Signed Patient: Tosha Mcneal MR#: [id number] : 1950 Acct:[id number] Age/Sex: 72 / F Type: REG RCR [...] She is leaving [place] this month. Continue 4 month followup with [...] related toxicities. Now following with dermatology at [facility] with no recurrence on skin exam. Surveillance ultrasound right axilla without recurrence. She will have routing f/u with mt in [address] CAP and [...] proceeded with wide local excision 09/05/2020 at [facility]. Outside review at [facility] showed at least 2.1 cm Breslow depth melanoma with 2 cm negative margins. She was referred to Dr. Diallo Berger at [facility]. Right axillary sentinel lymph node biopsy [...] liver lesion. Her case was presented at [facility] cutaneous tumor board on 12/15/2020rior to her metastatic staging. Discussion of referral to medical oncology fordiscussion of immunotherapy. The patient is now returning for medical oncology follow-up after review of all prior pathology and imaging. BRAF status is stillpending. She has healed well. She is a 10-year history of diabetes. She resides in [facility]. Today we reviewed immunotherapy counseling [...] Therapies: 1. Initial wide local excision at [facility] 09/05/[address] Hernando Mccartney 2. Right sentinel lymph node biopsy 11/28/2020 at [facility] by Dr. Diallo Berger 3. Delay of [...] % (Auto) 62.3, Lymph % (Auto) 26.0, [place] % (Auto) 8.6, Eos % (Auto) 2.2, Baso % (Auto) 0.9, Nucleat RBC Rel Count 0.1, Neut # (Auto) 4.3, Lymph # (Auto) 1.8, [place] # (Auto) 0.6, Eos # (Auto) 0.2, [...] Plan - TNM Staging Staging: Stage: pIIIC ([id number]) Melanoma 5 year survival: 69% (1) Melanoma [...] without extracapsular extension. Dr. Diallo Berger at [facility] surgical oncology group ordered metastatic staging with [...] for coordination of care (as documented) and gbff-[id number] counseling of patient and/or family. Dictated By: Rose Ohara MD DD/ 8 Signed By: <Electronically signed by MD Rose Ohara> 04/13/23 3260 [facility] Work Phone: Progress note No data available for this section [facility] reason for referral (narrative)No reason for referral information availableHolzer [facility]tr Work Phone: Reason for visit Narrative* Auth/Cert Specialty Diagnoses / Procedures Referred By Contac t Referred To Contact Diagnoses Acute cholecystitis Carlos Garcia MD [address] [facility] [address] [place] [address] Phone: tel: fax: [employer] [address] [place] [address] Referral ID Status Reason Start Date Expiration Date Visits Re quested Visits Authorized [id number] [facility] N[facility]* Auth/Cert Specialty Diagnoses / Procedures Referred By Contac t Referred To Contact Diagnoses Cholecystitis Procedures DE LAPAROSCOPY SURG CHOLECYSTECTOMY CHOLECYSTECTOMY LAPAROSCOPIC Rajni Cline MD [address] [facility] [address] [place] [address] Phone: tel: fax: [facility] [employer] [address] [place] [address] Referral ID Status Reason Start Date Expiration Date Visits Re quested Visits Authorized [id number] 1 1 [facility] Narrative* Misc (Routine) - Closed Specialty Diagnoses / Procedures Referred By Contac t Referred To Contact Diagnoses Hypersomnia Excessive daytime sleepiness Procedures [facility] Wild Centeno, DO [address], [place] [address] Phone: tel: fax: Referral ID Status Reason Start Date Expiration Date Visits Re quested Visits Authorized [id number] Closed 04/29/2025 04/29/2026 1 1 [facility] Summary Purpose Family History No Family History [...] Communication Dayo Mcneal Spouse Primary Decision Maker Wayne Mcneal Child Secondary Decision Maker Date Activated Date Inactivated Comments 04/10/2025 10:05 PM Date Activated Date Inactivated Comments 03/03/2025 11:34 AM 03/10/2025 3:10 PM Date Activated Date Inactivated Comments 10/03/2023 12:10 PM 10/04/2023 4:13 PM Healthcare Agents on File Name Relationship Healthcare Agent Relationshi p Communication Dayo Mcneal Spouse Primary Decision Maker Wayne Mcneal Child Secondary Decision Maker Procedure Findings Note PROCEDURE DETAILS Postoperat nitesh Diagnosis: right arm melanoma Surgeon: Diallo Berger Resident/Fellow/Other Reticle Printer: Ramiro Bhat Procedure: 1. RIGHT AXILLARY SENTINEL [...] Z87.442 June 11, 2025 9:1 5am Right [place] Ureteral Nephrosis July 16, 2025 10:11am Chief Complaint Admit Date N13.30 Z87.442 June 11, 2025 9:1 5am Right [place] Ureteral Nephrosis July 16, 2025 10:11am Right [place] Ureteral Nephrosis July 30, 2025 6:46am Additional Source Comments INFORMATION SOURCE (unrecogn ized section and content) DATE CREATED AUTHOR 10/24/2020 [facility] DATE CREATED AUTHOR AUTHOR'S ORGANIZ ATION 12/14/2020 [facility] DATE CREATED AUTHOR AUTHOR'S ORGANIZ ATION 10/07/2021 [facility] DATE CREATED AUTHOR AUTHOR'S ORGANIZ ATION 04/09/2022 [facility] DATE CREATED AUTHOR AUTHOR'S ORGANIZ ATION 03/07/2023 [facility] DATE CREATED AUTHOR AUTHOR'S ORGANIZ ATION 10/12/2023 [facility] DATE CREATED AUTHOR AUTHOR'S ORGANIZ ATION 11/10/2023 [facility] DATE CREATED AUTHOR AUTHOR'S ORGANIZ ATION 01/05/2024 [facility] DATE CREATED AUTHOR AUTHOR'S ORGANIZ ATION 07/18/2024 [facility] DATE CREATED AUTHOR AUTHOR'S ORGANIZ ATION 04/26/2025 [facility] DATE CREATED AUTHOR AUTHOR'S ORGANIZ ATION 05/10/2025 [facility] DATE CREATED AUTHOR AUTHOR'S ORGANIZ ATION 07/02/2025 [facility] DATE CREATED AUTHOR AUTHOR'S ORGANIZ ATION 07/19/2025 [facility] DATE CREATED AUTHOR AUTHOR'S ORGANIZ ATION 08/13/2025 [facility] DATE CREATED AUTHOR AUTHOR'S ORGANIZ ATION 08/15/2025 Tolu Flores [facility] Care Teams (unrecognized sec tion and [...] December 15, 2023 End: December 15, 2023 [employer] Relationship Specialty Start Date End Date Unallocated, [place] [address] PCP - General Family Medicine 12/06/23 [employer] Relationship Specialty Start Date End Date Unallocated, [place] [address] PCP - General Family Medicine 12/06/23 [employer] Relationship Specialty Start Date End Date Unallocated, Noms Provider [address] [place] [address] PCP - General Family Medicine 12/06/23 [employer] Relationship Specialty Start Date End Date Unallocated, Noms Provider [address] [place] [address] PCP - General Family Medicine 12/06/23 [employer] Relationship Specialty Start Date End Date Unallocated, Noms Provider [address] [place] [address] PCP - General Family Medicine 12/06/23 [employer] Relationship Specialty Start Date End Date Unallocated, Noms Provider [address] [place] [address] PCP - General Family Medicine 12/06/23 [employer] Relationship Specialty Start Date End Date Unallocated, Noms MD Tiana [address] [place] [address] PCP - General Family Medicine 12/06/23 [employer] Relationship Specialty Start Date End Date Unallocated, Noms MD Tiana [address] [place] [address] PCP - General Family Medicine 12/06/23 [employer] Relationship Specialty Start Date End Date Wild Centeno DO [address], [place] [address] PCP - General Family Medicine 11/30/17 [employer] Relationship Specialty Start Date End Date Wild Centeno DO [address], [place] [address] PCP - General Family Medicine 11/30/17 [employer] Relationship Specialty Start Date End Date Wild Centeno DO [address], [place] [address] PCP - General Family Medicine 11/30/17 Operator [employer] Relationship Specialty Start Date End Date HelderdesiWild recinos DO [address], [place] [address] PCP - General Family Medicine 11/30/17 Operator [employer] Relationship Specialty Start Date End Date HelderdesiWild recinos DO [address], [place] [address] PCP - General Family Medicine 11/30/17 Operator [employer] Relationship Specialty Start Date End Date HelderdesiWild recinos DO [address], [place] [address] PCP - General Family Medicine 11/30/17 Operator [employer] Relationship Specialty Start Date End Date HelderdesiWild recinos DO [address], [place] [address] PCP - General Family Medicine 11/30/17 Operator [employer] Relationship Specialty Start Date End Date HelderdesiWild recinos DO [address], [place] [address] PCP - General Family Medicine 11/30/17 Operator [employer] Relationship Specialty Start Date End Date HelderdesiWild recinos DO [address], [place] [address] PCP - General Family Medicine 11/30/17 Operator [employer] Relationship Specialty Start Date End Date ChaseWild [address], [place] [address] PCP - General Family Medicine 11/30/17 [employer] Relationship Specialty Start Date End Date HeldercaritoWild [address], [place] [address] PCP - General Family Medicine 11/30/17 Team [...] March 03, 2025 End: March 03, 2025 Operator [employer] Relationship Specialty Start Date End Date Wild Centeno JaileneDO [address] [place] [address] [place] [address] PCP - General Family Medicine 10/04/23 [employer] Relationship Specialty Start Date End Date Wild Centeno DO [address], [place] [address] PCP - General Family Medicine 11/30/17 Operator [employer] Relationship Specialty Start Date End Date Wild Centeno DO [address], [place] [address] PCP - General Family Medicine 11/30/17 Operator [employer] Relationship Specialty Start Date End Date Wild Centeno DO [address], [place] [address] PCP - General Family Medicine 11/30/17 Operator [employer] Relationship Specialty Start Date End Date Wild Centeno DO [address] [place] [address] PCP - General Family Medicine 10/04/23 Operator [employer] Relationship Specialty Start Date End Date Wild Centeno DO [address], [place] [address] PCP - General Family Medicine 11/30/17 [employer] Relationship Specialty Start Date End Date Wild Centeno DO [address], [place] [address] PCP - General Family Medicine 11/30/17 [employer] Relationship Specialty Start Date End Date Wlid Centeno DO [address], [place] [address] PCP - General Family Medicine 11/30/17 Operator [employer] Relationship Specialty Start Date End Date Wild Centeno DO [address], [place] [address] PCP - General Family Medicine 11/30/17 Operator [employer] Relationship Specialty Start Date End Date Wild Centeno DO [address] [place] [address] PCP - General Family Medicine 11/30/17 Team Status: Inactive Member Role Status Dates Shavon Mustafa MD Attending Provider Active Start : June 11, 2025 End: June 11, 2025 Wild Centeno DO Primary Care Provider Active Start: June 11, 2025 End: June 11, 2025 [employer] Relationship Specialty Start Date End Date Wild Centeno DO [address], [place] [address] PCP - [facility] Medicine 11/30/17 Team Status: Inactive Member Role Status Dates Wild HelderdesiDO jorje Primary Care Provider Active Start: July 16, 2025 End: July 16, 2025 Shavon Mustafa MD Attending Provider Active Start : July 16, 2025 End: July 16, 2025 Operator [employer] Relationship Specialty Start Date End Date Wild Centeno DO [address], [place] [address] PCP - [facility] 11/30/17 Team Status: Inactive Member Role Status Dates Wild Centeno DO Primary Care Provider Active Start: July 30, 2025 End: July 30, 2025 Shavon Mustafa MD Attending Provider Active Start : July 30, 2025 End: July 30, 2025 Operator [employer] Relationship Specialty Start Date End Date Wild Centeno DO [address], [place] [address] [facility]CP - [facility] 11/30/17 Goals (unrecognized section and content) Goals [...] 15 MIN [facility] REEDUCA Aly Higgins MD [address] [place] [address] Db Roth, PT [address] [facility] [address] [place] [address] Referral ID Status Reason Start Date Expiration Date Visits Re quested Visits Authorized [id number] Closed 11/07/2023 10/19/2024 1 10 Referral ID Status Reason Start Date Expiration Date V isits Requested Visits Authorized [id number] Authorized 12/19/2023 10/02/2025 28 28 Reason Comments [...] Daily Amount: 4 tablets 12 tablet 03/10/2025 05/07/202 5 amoxicillin-clavula kaveh (AUGMENTIN) 875-125 MG per [...] dose on Tue03/09/25 at 0900, Until Discontinued 0820 (Given - Provider: Carmen Ramirez RN) 0919 (Given - Provider: Carmen Ramirez RN) cefTRIAXone [...] Hinton RN) 1704 (Given - Provider: Carmen Ramirez RN) 1800 (Due) enoxaparin Sodium (LOVENOX) injection 30 mg 30 mg, SubCUTAneous, 2 TIMES DAILY, First dose on Tue03/06/25 at 1430, Until Discontinued, Indication of Use: Prophylaxis-DVT/PE, Administer by deep subCUTAneous injection with pt lying down. Alternate injection sites on abdominal wall. Do not rub site after injection. Check with provider prior to any invasive procedure. 09 (Given - Provider: Tanner Yates RN)2050 (Given - Provider: Leslie Tapia RN) 819 (Given - Provider: Carmen Ramirez RN)2099 (Given - Provider: Chacha Mcarthur, PERLA) 920 (Given - Provider: Carmen Ramirez, PERLA)2099 (Due) furosemide (LASIX) tablet 20 mg 20 mg, Oral, DAILY, First dose on Tue03/09/25 at 0900, Until Discontinued 819 (Given - Provider: Carmen Ramirez RN) 918 (Given - Provider: Carmen Ramirez RN) insulin glargine (LANTUS) injection vial 15 Units (CANCELED) 15 Units, SubCUTAneous, DAILY, First dose (after last modification) on Tue03/08/25 at 0945, Until Discontinued 925 (Given - Provider: Tanner Yates RN) insulin glargine (LANTUS) injection vial 20 Units 20 Units, SubCUTAneous, DAILY, First dose (after last modification) on Tue03/09/25 at 0900, Until Discontinued 836 (Given - Provider: Carmen Ramirez RN) 920 (Given - Provider: Carmen Ramirez RN) insulin [...] Carmen Ramirez RN)1207 (Given - Provider: Carmen Ramirez, PERLA)170 (Given - Provider: Carmen Ramirez RN)2099 (Given - Provider: Chacha Mcarthur, PERLA) 09 (Given - Provider: Carmen Ramirez, PERLA)120 (Given - Provider: Carmen Ramirez, PERLA)1700 (Due)2099 (Due) insulin lispro (HUMALOG,ADMELOG) injection vial 0-8 Units (CANCELED) 0-8 Units, SubCUTAneous, 4 TIMES DAILY BEFORE MEALS & NIGHTLY, First dose on 03/03/25 at 1700, Until Discontinued, Medium Dose Corrective [...] at 0830, Until Discontinued, On hold since 03/10/2025 at 0810 until manually unheld 0836 (Given - Provider: Carmen Ramirez RN)1208 (Given - Provider: Carmen Ramirez, PERLA)1704 (Given - Provider: Carmen Ramirez RN) 0810 (Held by provider - Provider: Piter Weems MD - Reason: Other)0838 (Not Given - Provider: Praveena Nelson RN - Reason: Other - Comment: order d.c)1200 (Automatically Held - Provider: Piter Weems MD)1700 (Automatically Held - Provider: Ptier Weems MD) magnesium oxide (MAG-OX) tablet 400 [...] 0611 (New Bag - Provider: Chacha Mcarthur RN)07 (Stopped - Provider: Carmen Ramirez RN)07 (Stopped - Provider: Praveena Nelson, PERLA) magnesium sulfate 2000 mg in 50 mL IVPB premix 2,000 mg, IntraVENous, at 25 mL/hr, Administer over 2 Hours, ONCE, On Tue03/10/25 at 0845, For 1 dose 0845 (Due) [...] Ramirez RN - Reason: Order parameters not met)1659 (Not Given - Provider: Carmen Ramirez RN [...] Until Discontinued 2050 (Given - Provider: Leslie Tapia, RN) 2058 (Given - Provider: Chacha Mcarthur, RN) 2099 (Due) sodium chloride flush 0.9 [...] 20 mL/lumen 0951 (Given - Provider: Tanner Yates RN)2050 (Given - Provider: Leslie Tapia RN) 08 (Given - Provider: Carmen Ramirez, PERLA)2099 (Given - Provider: Chacha Mcarthur, RN) 09 (Given - Provider: Carmen Ramirez, PERLA)2099 (Due) PRN Medication Order 03/08/2025 03/09/2025 03/10/2025 [...] mg 1 mg, SubCUTAneous, PRN, Starting on Tue03/03/25 at 1456, Until Discontinued, Low blood sugar, Blood glucose LESS THAN 70 mg/dL and patient NOT ALERT or NPO and does not have IV access., After administration, attempt intravenous access and start dextrose 10% at 100 mL/hr. Repeat blood glucose in 15 minutes x 2 and notify provider. Reconstitute powder for injection by adding 1 mL of peer tutor-supplied sterile diluent or sterile water for injection to a vial containing 1 mg of the drug, to provide solutions containing 1 mg/mL. Shake vial gently to dissolve. glucose chewable tablet 16 g 16 g (4 tablet), Oral, PRN, Starting on Tue03/03/25 at 1456, Until Discontinued, Low blood sugar, [...] IntraVENous, EVERY 6 HOURS PRN, Starting on Tue03/03/25 at 1148, Until Discontinued, Nausea, Vomiting, Administer [...] Yates RN) 0611 (Given - Provider: Chacha Mcarthur, PERLA)0919 (Given - Provider: Carmen Ramirez, PERLA) potassium [...] mL/min. 0950 (See Alternative - Provider: Tanner Yates, RN) 0611 (See Alternative - Provider: Chacha Mcarthur RN)0919 (See Alternative - Provider: Carmen Ramirez RN) sodium chloride flush 0.9 % injection 5-40 mL 5-40 mL, IntraVENous, PRN, Starting on Tue03/03/25 at 1148, Until Discontinued, Line Care, After [...] 03/03/25 at 1148, Until Discontinued, Nausea, Vomiting Or ondansetron (ZOFRAN) injection 4 mgJump to med 4 mg, IntraVENous, EVERY 6 HOURS PRN, Starting on 03/03/25 at 1148, Until Discontinued, Nausea, Vomiting, Administer if oral route cannot be used. Group 4: potassium chloride (KLOR-CON M) extended release tablet 40 mEqJump to med 40 mEq, Oral, PRN, Starting on 03/04/25 at 1649, Until Discontinued, Potassium Replacement, May [...] Provider: Valentine Parks)2139 (Given - Provider: Rochelle Mosquera, PERLA) 0636 (Given - Provider: Rochelle Mosquera, RN)1319 (Given - Provider: Valentine Parks)2200 (Due) aspirin chewable tablet 81 mg 81 mg, Oral, DAILY, First dose on Kirti 04/11/25 at 0900, Until Discontinued 09 (Given - Provider: Kelly Worerll RN) 09 (Given - Provider: Valetnine Parks) 0832 (Given - Provider: Valentine Parks) carvedilol (COREG) tablet 25 mg 25 mg, Oral, 2 TIMES DAILY WITH MEALS, First dose on Kirti 04/11/25 at 0800, Until Discontinued, Hold for SBP < 100 and HR <60/min Administer with food to minimize the risk of orthostatic hypotension 0911 (Given - Provider: Kelly Worrell RN)1835 (Given - Provider: Kelly Worrell RN) 09 (Given - Provider: Valentine Parks)180 (Given - Provider: Valentine Parks) 08 (Given - Provider: Valentine Parks)1700 (Due) ceFAZolin (ANCEF) 2000 mg in sterile water 20 mL IV syringe (COMPLETED) 2,000 mg, IntraVENous, EVERY 8 HOURS, First dose on Kirti 04/11/25 at 0130, For 24 hours, Administer over 5 mins., Post-op 0154 (Given - Provider: Musa Robertson RN)0918 (Given - Provider: Kelly Worrell RN)183 (Given - Provider: Kelly Worrell RN) enoxaparin (LOVENOX) injection 40 mg 40 mg, SubCUTAneous, DAILY, First dose on Kirti 04/11/25 at 0900, Until Discontinued, Indication of Use: Prophylaxis-DVT/PE, Administer by deep subCUTAneous injection with pt lying down. Alternate injection sites on abdominal wall. Do not rub site after injection. Check with provider prior to any invasive procedure., Post-op 09 (Given - Provider: Kelly Worrell RN) 09 (Given - Provider: Valentine Parks) 0831 (Given - Provider: Valentine Parks) furosemide (LASIX) tablet 20 mg 20 mg, Oral, DAILY, First dose (after last modification) on [facility] 04/13/25 at 0900, Until Discontinued 1013 (Held [...] Milady Doshi RN)2224 (Given - Provider: Musa Robertson, PERLA) 0931 (Given - Provider: Valentine Parks)1400 (Given - Provider: Valentine Parks)213 (Given - Provider: Rochelle Mosquera, PERLA) 0831 (Given - Provider: Valentine Parks)1320 (Given [...] RN - Reason: Other - Comment: not taken)2225 (Given - Provider: Musa Robertson, PERLA) 0931 (Given - Provider: Valentine Parks)1400 (Given - Provider: Valentine Parks)180 (Given - Provider: Valentine Parks)2012 (Given - Provider: Rocehlle Mosquera, PERLA) 0832 (Given - Provider: Valentine Parks)1320 (Given [...] Provider: Valentine Parks)1400 (Given - Provider: Valentine Parks)1802 (Given - Provider: Valentine Parks)1957 (Not Given - Provider: Rochelle Mosquera RN - Reason: Patient/family refused) pantoprazole (PROTONIX) tablet 40 mg 40 mg, Oral, DAILY BEFORE BREAKFAST, First dose on Tue04/11/25 at 0700, Until Discontinued, Do not crush or break., Post-op 0547 (Given - Provider: Musa Robertson RN) 0619 (Given - Provider: Musa Robertson RN) 0635 (Given - Provider: Rochelle Mosquera, PERLA) rosuvastatin (CRESTOR) tablet 10 mg 10 mg, Oral, NIGHTLY, First dose on Tue04/11/25 at 2100, Until Discontinued 1936 (Given - Provider: Musa Robertson RN) 2139 (Given - Provider: Rochelle Mosquera RN) 2100 (Due) sodium chloride flush 0.9 % injection [...] Kelly Worrell RN - Reason: IV Fluid Infusing)193 (Given - Provider: Musa Robertson, PERLA) 0955 (Not Given - Provider: Valentine Parks - Reason: IV Fluid Infusing)2002 (Given - Provider: Rochelle Mosquera RN) 0842 (Not Given - Provider: Valentine Parks - Reason: IV Fluid Infusing)2100 (Due) Continuous Medication Order 04/11/2025 04/12/2025 04/13/2025 lactated ringers infusion (CANCELED) IntraVENous, at 75 mL/hr, CONTINUOUS, Starting on Tue04/10/25 at 2230, Post-op 0144 (Restarted - Provider: Musa Robertson RN)0453 (Rate/Dose Verify - Provider: Musa Robertson RN)0614 (New Bag - Provider: Musa Robertson RN)1311 (Stopped - Provider: Musa Robertson RN) PRN Medication Order 04/11/2025 04/12/2025 04/13/2025 [...] for injection by adding 1 mL of peer tutor-supplied sterile diluent or sterile water for injection [...] Robertson RN)0956 (Given - Provider: Kelly Worrell RN)1935 (Given - Provider: Musa Robertson RN) 0619 (Given - Provider: Musa Robertson, RN) oxyCODONE (ROXICODONE) immediate release tablet 5 mg(Linked Group 3) 5 mg, Oral, EVERY 4 HOURS PRN, Starting on Tue04/11/25 at 0445, Until Discontinued, Pain Moderate (4-6), allowed for higher pain score per patient request 0547 (Given - Provider: Musa Robertson RN)0956 (See Alternative - Provider: Kelly Worrell RN)193 (See Alternative - Provider: Musa Robertson RN) [...] on Tue04/11/25 at 0445, Until Discontinued, Pain Severe (7-10) [...] BE BASED ON THE PRIMARY CLINICAL RECORDS. [employer] [facility]. provides no warranty or guarantee of the accuracy or completeness of information in this document.
--- NOTE | 2025-08-20 07:45 | NM_ITS ---
Patient Name: TANIYA MCNEAL MR#: [id number] : 1950 Exam Date: 08/20/2025 Ordering Doctor: ALFRED ALEXANDER CNP RADIOLOGY REPORT PROCEDURE: NM THERON PERF SPECT REST STR COMPARISON: None. INDICATIONS: DYSPNEA ON EXERTION, TROPONIN LEVEL ELEVATED TECHNIQUE: Exam Description: Stress/Rest one day protocol gated SPECT Rest Imagin.9 mCi Tc-99m Cardiolite IV on 08/20/2025 Stress Imaging 31.9 mCi Tc-99m Cardiolite IV on 08/20/2025 Exercise Protocol: 0.4 mg Lexiscan given IV Heart Rate (bpm): Rest: 67 Max: 80 PMHR: 55 Blood Pressure: Rest: 135/58 Max: 152/56 Symptoms: Rest and peak stress ECG findings were pending, and the exercise portion of the study was pending per attending physician [facility] . For more details, please see separate cardiac stress test report. FINDINGS: QUALITY OF STUDY: Acceptable PERFUSION DEFECT: LOCATION: Mid and apical anterolateral SIZE: Moderate SEVERITY: Moderate TYPE: Reversible WALL MOTION: There appears to be anteroapical hypokinesis; although this may be artifactual LV SIZE: 94 mL. TID / TCD: 1.0 LVEF: Calculated EF 67%. SUMMARY: Myocardial perfusion imaging study is abnormal CONCLUSION: 1. Myocardial perfusion is abnormal with soft tissue attenuation 2. There is a moderate sized, reversible, anterolateral perfusion defect suggestive of ischemia 3. Global left ventricular systolic function is normal; ejection fraction is 67% 4. No significant transient ischemic dilatation Dictated by: Edel Negrete M.D. on 08/22/2025 at 17:37 Approved by: Edel Negrete M.D. on 08/22/2025 at 17:41
--- NOTE | 2025-08-20 09:22 | PC.NURSE ---
Nursing Note Cardiac Stress Test Reviewed: Medication, allergies and patient history reviewed. Stress Test: [x ] Patient tolerated stress test well. [ ] Patient unable to tolerate walking on treadmill. Switched to Lexiscan stress test. [x ] No chest pain noted per patient [ ] Chest pain that resolved prior to leaving stress lab. [x ] No dyspnea noted. [ ] Dyspnea that resolved prior to leaving stress lab. [x ] Patient left stress lab asymptomatic and hemodynamically stable. [ ] Patient taken to the Emergency Room due to non-resolving symptoms following stress test. [ ] Patient achieved target heart rate. [ ] Patient unable to achieve target heart rate. [ ] Aminophylline administered as reversal agent to Lexiscan (Regadenoson). [ ] Nitro administered. Nursing Comments:
[2025-08-20] MEDS: REGADENOSON 0.4 MG/5 ML SYRINGE IV (09:23)
--- NOTE | 2025-08-21 08:56 | PM.STRESS ---
Stress Test Stress Test Allergies Allergy/AdvReac Type Severity Reaction Status Date / Time No Known Drug Allergies Allergy Verified 07/20/25 10:16 Requesting physician: ALFRED ALEXANDER Procedure: Lexiscan stress test General Information: Reason for Stress Test: Dyspnea on exertion Cardiac History and Risk Factors: Hypertension, Family history Resting 12 - Lead Electrocardiogram: Sinus rhythm with occasional premature ventricular beats, incomplete right bundle branch block and non-specific ST changes in the inferolateral leads Stress Test: Protocol: Lexiscan Exercise Capacity: NA Blood Pressure Response: Normal Rhythm: sinus rhythm with occasional PVCs with a pattern of quadrigeminy ST - Response: Non diagnostic ST depression in the inferolateral leads became more prominent after infusion Patient Response: Nausea Interpretation: Non-diagnostic ST depression in the inferolateral leads became more prominent after infusion and PVCs were more frequent. This is a non-diagnostic finding. The nucelar scans will be reported separately.
== END 2025-08-20 07:22 | disposition home or self-care (01) ==
LOC: NM 07:21
PROVIDERS: PCP Family Medicine; Visit Provider Nurse Practitioner Family
DX: R79.89 Other specified abnormal findings of blood chemistry (principal); R06.09 Other forms of dyspnea
CPT/HCPCS: 78452; 93017; A9500; J2785

== ENCOUNTER 2025-09-27 10:49 | Outpatient (OUT) | payer MEDICARE, OTHER, SELFPAY ==
--- OUTSIDE RECORDS SUMMARY | 2013-01-12 05:15 | XMS_ITS | Continuity of Care Document ---
Author Organization [facility] Address [address] [place] [address] Phone Care Team Providers Care Terra Cotta Mason Name Role Phone Mohan Cooper Unavailable Unavailable Procedures Procedure Date CHICKEN POX VACCINE, OR OFFICE/OUTPATIENT VISIT, EST IMMUNIZATION ADMIN CHICKEN POX VACCINE, OR Advance Directives Directive Yes / No Effective Date File Name Resuscitation Not Answered N/A N/A Life Support Not Answered N/A N/A Intubation Not Answered N/A N/A Antibiotics Not Answered N/A N/A IV Fluid Support Not Answered N/A N/A Tube Feed Not Answered N/A N/A Other Directive N/A N/A WARNING:The information contained in this section is historical and is provided for information only and does not constitute a legal document or any assurance that the information is still accurate. Please verify the information with the chapin of the legal document before using it for clinical purposes. Encounters Encounter Description Practice Location Reason(s) For Visit Diagnoses Date Provider Providers Copied on Encounter OFFICE/OUTPAT IENT VISIT, EST [facility], [address], [place], [id number], [place] tel:[phone] [facility] Need for prophylactic vaccination and inoculation against varicella [facility]. [address], [place], [id number], [place]. tel:[phone] Family History Family Member Type Diagnosis Age At Onset No Information Immunizations Vaccine Date Status Comments Varicella administered Source: [facility] unization Record Payers Payer name Insurance type Covered libertarian ID Authorashlee rouse(s) No Information Social History Type Description Quantity Date Captured Comments Alcohol Use Details Unknown Caffeine Use Details Unknown Tobacco Use Status No Information Smoking Status No Information Sex Female Chief Complaint And Reason For Visit No Information Reason For Referral Reason For Referral No Information History Of Present Illness Encounter Date Complaint History Of Prese nt Illness No Information Functional Status Date Functional Assessmen t No Information Instructions Date Instruction Additional Infor mation No Information Assessments Type Assessment Date No Information Patient Care Teams Name Effective Dates (start - stop) Status Members No Information
--- OUTSIDE RECORDS SUMMARY | 2025-09-23 23:59 | XMS_ITS | Continuity of Care Document ---
Author Organization [facility] Address Unknown Care Team Providers Care Hull Inspector Name Role Phone MEGANSAMTONY ОЛЕГ Primary Care Physician Encounter [facility] [id number] Date(s): 09/23/25 - 09/23/[address] [address] Discharge Disposition: Home (Routine DC) Attending Physician: Shavon Mustafa MD Admitting Physician: Shavon Mustafa MD Referring Physician: Shavon Mustafa MD Encounter Type: Outpatient Allergies, Adverse Reactions, Alerts SubstanceCriticalitySeverityReactionReaction SeverityStatusspironolactoneActive amLODIPineActive Immunizations Given and Recorded VaccineDateStatusRefusal Reasoninfluenza virus vaccine, usephzmbldm89/10/24 Recordedinfluenza virus vaccine, exvfpzyijtc08/6/23Recordedinfluenza virus vaccine, gmzdadgkqzs54/2/22Recordedinfluenza virus vaccine, xniepgewttx72/6/20 Recordedinfluenza virus vaccine, lvjallfwfxs13/28/19Recordedinfluenza virus vaccine, npicrkzfuub34/18/17Recordedinfluenza virus vaccine, zvayfybjkkk78/30/16 Recordedinfluenza virus vaccine, fbfirfkfcro76/1/40NybbzrojQBNY-NqZ-6 (COVID-19) mRNA BNT-162b2 vax112/06/2049QywqmhquODDH-TmN-0 (COVID-19) mRNA BNT-162b2 vax 01/22/2112UszxygzhDTMK-HpQ-0 (COVID-19) mRNA BNT-162b2 vax2Recorded pneumococcal 23-valent rfxpobb60/18/17Recordedpneumococcal 13-valent vaccine 08/05/16Recordedvaricella virus vaccine01/12/13Recordeddiphtheria/pertussis, acel/tetanus adult09/18/12Recorded Medications Acidophilus Probiotic Blend Refill(s) 0 Start Date: 01/16/25 Status: Ordered Medication Dispense Status: Completed Total Allowed Fills: 1 Fills Dispensed: 0 allopurinol Refills(s) 0 Start Date: 01/16/25 Status: Ordered Medication Dispense Status: Completed Total Allowed Fills: 1 Fills Dispensed: 0 amLODIPine 5 mg Tab 5 mg = 1 tab(s), Refills(s) 0 Start Date: 01/16/25 Status: Ordered Medication Dispense Status: Completed Total Allowed Fills: 1 Fills Dispensed: 0 aspirin 81 mg, Oral, Daily, Refills(s) 0 Start Date: 01/16/25 Status: Ordered Medication Dispense Status: Completed Total Allowed Fills: 1 Fills Dispensed: 0 carvedilol 25 mg Tab 25 mg = 1 tab(s), Refills(s) 0 Start Date: 01/16/25 Status: Ordered Medication Dispense Status: Completed Total Allowed Fills: 1 Fills Dispensed: 0 furosemide 40 mg Tab 40 mg = 1 tab(s), Refills(s) 0 Start Date: 01/16/25 Status: Ordered Medication Dispense Status: Completed Total Allowed Fills: 1 Fills Dispensed: 0 lisinopril 40 mg Tab 40 mg = 1 tab(s), Refills(s) 0 Start Date: 01/16/25 Status: Ordered Medication Dispense Status: Completed Total Allowed Fills: 1 Fills Dispensed: 0 magnesium sulfate Refills(s) 0 Start Date: 01/16/25 Status: Ordered Medication Dispense Status: Completed Total Allowed Fills: 1 Fills Dispensed: 0 metformin 1000 mg Tab 1,000 mg = 1 tab(s), Refills(s) 0 Start Date: 01/16/25 Status: Ordered Medication Dispense Status: Completed Total Allowed Fills: 1 Fills Dispensed: 0 Novolin N See Instructions, Refills(s) 0 Start Date: 01/16/25 Status: Ordered Medication Dispense Status: Completed Total Allowed Fills: 1 Fills Dispensed: 0 rosuvastatin 10 mg Tab 10 mg = 1 tab(s), Refills(s) 0 Start Date: 01/16/25 Status: Ordered Medication Dispense Status: Completed Total Allowed Fills: 1 Fills Dispensed: 0 Trulicity Pen See Instructions, Refills(s) 0 Start Date: 01/16/25 Status: Ordered Medication Dispense Status: Completed Total Allowed Fills: 1 Fills Dispensed: 0 Problem List ConditionConfirmationCourseEffective DatesStatusHealth StatusInformantArthritis ConfirmedActiveArm fractureConfirmedActiveGoutConfirmedActiveHistory of kidney stonesConfirmedActiveHydroureteronephrosisConfirmedActiveHypercholesteremia ConfirmedActiveHypertensionConfirmedActiveOSA (obstructive sleep apnea)Confirmed ActiveOsteoporosisConfirmedActivePilonidal cystConfirmedActiveDiabetes type 2 ConfirmedActive Procedures ProcedureDateRelated DiagnosisBody SiteStatusBilateral tubal ligationCompleted History of knee surgeryCompletedHistory of repair of rotator cuffCompleted Phacoemulsification of cataract with intraocular lens implantationCompleted Social History Social History TypeResponseSmoking StatusNever (less than 100 in lifetime);Never entered on: 01/16/25Birth SexFemaleSex RepresentationFemale (finding) Patient Care team information Care Team Personnel Name: ОЛЕГ CENTENO DO Position: FT Physician Member Role: Primary Care Physician Address: [address] [place] [phone] Telecom: Care Team Related Persons Name: JACKIE MCNEAL Name: JACKIE MCNEAL Name: JACKIE MCNEAL Name: ELIZABET TY Insurance Providers Guarantor name: Health Plan Information #: 1 Payer: MEDICARE Payer Identifier: [id number] Member Number: [id number] Group Number: [id number] Subscriber Identifier: [id number] Relationship to Subscriber: self Coverage Type: MEDICARE Coverage Verification Date: 25 Telecom: [phone] Address: [facility] [address] Health Plan Information #: 2 Payer: [employer] Payer Identifier: [id number] Member Number: [id number] Group Number: [id number] Subscriber Identifier: [id number] Relationship to Subscriber: self Coverage Type: PRIVATE HEALTH INSURANCE Coverage Verification Date: 25 Telecom: [employer] Address: [address] [address]
--- OUTSIDE RECORDS SUMMARY | 2025-09-27 10:55 | XMS_ITS | Clinical Summary ---
Author Organization [facility] Address [address] [place] [address] Phone Care Team Providers Care Back Hand Name Role Phone Wild Stone DO Primary Care Provider Social History Tobacco UseTypesPacks/DayYears UsedDateSmoking Tobacco: Never Assessed CommentsUnknownSex and Gender InformationValueDate RecordedSex Assigned at Not on fileLegal PfePeifcx19/26/2022 8:41 PM ESTGender IdentityNot on fileSexual OrientationNot on file Last Filed Vital Signs Vital SignReadingTime TakenCommentsBlood Qhqquicb513/57011/28/2020 9:26 AM EST Osvzw4898 9:26 AM EOSNvhctbiquqr98.4 ??C (97.5 ??F)11/28/2020 9:26 AM ESTRespiratory Eklh373811/28/2020 9:26 AM ESTOxygen Saturation--Inhaled Oxygen Concentration--Tiqlgr63.2 kg (207 lb 10.8 oz)11/28/2020 7:55 AM BUPWfmrlo356.4 cm (5')11/28/2020 7:55 AM ESTBody Mass Index40.56011/28/2020 7:55 AM EST Plan of Treatment Not on file Care Teams Team MemberRelationshipSpecialtyStart DateEnd Date Wild Stone DO PCP - General11/07/20
--- OUTSIDE RECORDS SUMMARY | 2025-09-27 10:55 | XMS_ITS | Clinical Summary ---
Author Organization [facility] Address [address] [place] [address] Care Team Providers Care Auto Parker Name Role Phone Unallocated, Noms Provider Primary Care Provi [facility] Family History Medical HistoryRelationNameCommentsCancerFatherHeart diseaseFatherCancerMaternal GrandmotherStrokeMotherRelationNameStatusCommentsFatherMaternal Grandmother Mother Social History Tobacco UseTypesPacks/DayYears UsedDateSmoking Tobacco: NeverSmokeless Tobacco: Never Tobacco Cessation:Counseling Given: Not Answered Alcohol UseStandard Drinks/WeekCommentsNot Currently0 (1 standard drink = 0.6 oz pure alcohol)Caffeine: 1-2 cups/dayCommentsUnknownSex and Gender InformationValueDate RecordedSex Assigned at BirthNot on fileLegal SexFemale 09/26/2023 10:07 AM ESTGender IdentityNot on fileSexual OrientationNot on file Last Filed Vital Signs Vital SignReadingTime TakenCommentsBlood Mehrihmx422/7711 12:00 PM EST Pulse--Temperature--Respiratory Rate--Oxygen Saturation--Inhaled Oxygen Concentration--Xjfveu51 kg (205 lb)09/16/2020 12:00 PM OTWCqfqrg358.9 cm (5' 1 ) 09/16/2020 12:00 PM ESTBody Mass Index38.7309/16/2020 12:00 PM EST Plan of Treatment Health MaintenanceDue DateLast DoneCommentsCT Dmnjarutpcix21/05/1950Colonoscopy 1950Diabetes: Hemoglobin A1C1949FIT1949FOBT1949 Gtfmgxfzyixwg96/05/1950Diabetes: Retinopathy Zltsbffsg75/05/1960Medicare Annual Wellness (AWV)/3Diabetes: Urine Protein Mzfotllyf13/08/2024 3COVID-19 Vaccine ( season)/, 01/22/2021, 01/01/2021Influenza Vaccine (#1), 10/08/2022, 10/12/2020, Additional history existsColorectal Cancer Hgopcbmod43/19/2026FIT-DNA03/25/2026 03/25/2023, 11/10/2018Pneumococcal Vaccine: 65+ BbgzjGnohmghae34/18/2017, 08/05/20168265DjarohcfyQhmpixlidhbh62/07/2023, 04/26/2022, 04/24/2021, Additional history exists Insurance * Guarantor: Juwan Macias TypeRelation to PatientDate of BirthPhone Billing AddressPersonal/KmyhaeAlpx39/05/1951 [facility] [address] Care Teams Team MemberRelationshipSpecialtyStart DateEnd Date Unallocated, Noms MD [address] [place] [address] [facility]06/[facility]
--- OUTSIDE RECORDS SUMMARY | 2025-09-27 10:55 | XMS_ITS | Encounter Summary ---
Author Organization [facility] Address [id number] [address] [place] [address] Care Team Providers Care Principal Trainer Name Role Phone HelderWild arzate Jailene VIRAMONTES Primary Care Provider [phone] Encounter Details DateTypeDepartmentCare Team (Latest Contact Info)Pcgtkdsbroj72/19/2025[facility] [address] [place] [id number] Ref Prov, [place] [address] Social History Tobacco UseTypesPacks/DayYears UsedDateSmoking Tobacco: NeverSmokeless Tobacco: NeverAlcohol UseStandard Drinks/WeekCommentsNot Currently0 (1 standard drink = 0.6 oz pure alcohol)Social Connection and Isolation PanelAnswerDate RecordedIn a typical week, how many times do you talk on the phone with family, friends, or neighbors?More than three times a week03/10/2023How often do you get together with friends or relatives?Once a week03/10/2023How often do you attend orthodoxy or oriental orthodox services?Never03/10/2023o you belong to any clubs or organizations such as orthodoxy groups, unions, fraternal or athletic groups, or school groups? Yes03/10/2023How often do you attend meetings of the clubs or organizations you belong to?Never03/10/2023re you , , , , never , or living with a partner?Xxrfdyi8603/10/2023UDIT-CAnswerDate RecordedQ1: How often do you have a drink containing alcohol?Never03/10/2023Q2: How many drinks containing alcohol do you have on a typical day when you are drinking? Patient does not drink03/10/2023Q3: How often do you have six or more drinks on one occasion?Never03/10/2023Overall Financial Resource Strain (CARDIA)AnswerDate RecordedHow hard is it for you to pay for the very basics like food, housing, medical care, and heating?Not hard at all03/19/2024HQ-2AnswerDate RecordedTotal Wmzfa090[facility] [place] of Occupational Health - Occupational Stress QuestionnaireAnswerDate RecordedDo you feel stress - tense, restless, nervous, or anxious, or unable to sleep at night because yourmind is troubled all the time - these days?Not at all03/10/2023Exercise Vital SignAnswerDate RecordedOn average, how many days per week do you engage in moderate to strenuous exercise (like a brisk walk)?3 days03/10/2023On average, how many minutes do you engage in exercise at this level?60 min03/10/2023RAPARE - TransportationAnswerDate RecordedIn the past 12 months, has lack of transportation kept you from medical appointments or from getting medications?No03/19/2024In the past 12 months, has lack of transportation kept you from meetings, work, or from getting things needed for daily living?No03/19/2024Housing InstabilityAnswerDate RecordedAre you worried or concerned that in the next two months you may not have stable housing that you own, rent or stay in as a part of a household?No03/19/2024 ChildcareAnswerDate RecordedDo problems getting early childhood worker make it difficult for you to work or study?No03/10/2023EmploymentAnswerDate RecordedDo you need help finding a local career center and/or a training program?No03/10/2023Hunger ScreeningAnswerDate RecordedWithin the past 12 months we worried whether our food would run out before we got money to buy more.Never True07/17/2025Within the past 12 months the food we bought just didn't last and we didn't have money to get more.Never True07/17/2025Purpose - LifeAnswerDate RecordedPurpose and direction in zyllKjqqzlw79/11/2021CommentsNoSex and Gender Information ValueDate RecordedSex Assigned at BirthNot on fileLegal XrtBzxkqe04/06/2015 11:42 AM EDTGender IdentityNot on fileSexual OrientationNot on filedocumented as of this encounter Plan of Treatment DateTypeDepartmentCare Team (Latest Contact Info)Uzatmepsprb89/10/2025 8:30 AM ESTOffice Visit [facility] [address] [place] [address] Wild Stone DO [address], [facility] [place] [address] documented as of this encounter Procedures Procedure NamePriorityDate/TimeAssociated DiagnosisCommentsUS, RETROPERITNL ABD, IORVbdamrp32/17/2025 2:55 PM ESTdocumented in this encounter Results * US, RETROPERITNL ABD, LTD (09/23/2025 2:55 PM EST) Narrative Authorizing ProviderResult TypeResult StatusNot In System Ref Prov PROCEDURE/MINOR SURGICAL ORDERABLESFinal ResultPerforming OrganizationAddress City/State/ZIP CodePhone Number MANUALLY TRANSCRIBED RESULTS documented in this encounter Visit Diagnoses Not on filedocumented in this encounter Additional Health Concerns AssessmentNoted TimePHQ-9 Depression Total Score: 8:54 AM EDTA Body Mass Index follow-up plan has been documented for the lztrjcl4005/14/2025 3:54 PM EDTdocumented as of this encounter Care Teams Team MemberRelationshipSpecialtyStart DateEnd Date Wild Stone DO [address] [facility] [place] [address] PCP - GeneralFamily Medicine11/30/17documented as of this encounter
--- OUTSIDE RECORDS SUMMARY | 2025-09-27 10:55 | XMS_ITS | Clinical Summary ---
Author Organization [facility] Address [address] [place] [address] Care Team Providers Care Wood Inspector Name Role Phone Wild Stone DO Primary Care Provider [phone] Allergies Active AllergyReactionsCriticalityNoted VswsGgrhurtqWxfatouktoQlfgy08/20/2025 Possible leg swelling WvvalftfnatepLkzuThnaat78/12/6457JzysplauambhnoZlasa88/20/2025 Hyperkalemia Medications MedicationSigDispense QuantityRefillsLast FilledStart DateEnd DateStatus insulin NPH and regular human (NovoLIN 70-30 FlexPen U-100) 100 unit/mL (70-30) injection Novolin 70-30 FlexPen U-100Active aspirin 81 mg chewable tablet in the morning.Active carvedilol (Coreg) 25 mg tablet Take 25 mg by mouth in the morning and at bedtime.07/20/2022ctive metFORMIN (Glucophage) 1,000 mg tablet Take 1,000 mg by mouth with breakfast and with evening meal.Active rosuvastatin (Crestor) 10 mg tablet rosuvastatin 10 mg tablet take 1 tablet by mouth once daily09/13/2022ctive magnesium oxide (Mag-Ox) 400 mg tablet MagnesiumActive lisinopril 40 mg tablet Indications:Benign hypertensive heart disease with heart failure (CMS/HCC)Take 1 tablet (40 mg) by mouth once daily as directed. 90 tablet ctive allopurinol (Zyloprim) 100 mg tablet take 1 tablet by mouth IN THE MORNING ( START after FLARE UP RESOLVES ) 12/23/2023ctive ergocalciferol (Vitamin D-2) 1.25 MG (24753 Units) capsule Take 1 capsule by mouth 1 (one) time per week.01/15/2024ctive Tresiba FlexTouch U-100 100 unit/mL (3 mL) injection Inject TEN Units under the skin NIGHTLYActive furosemide (Lasix) 40 mg tablet Indications:Edema, unspecified typeTake 1 tablet (40 mg) by mouth in the morning./ctive insulin aspart (NovoLOG) 100 unit/mL (3 mL) injection pen Inject 6 Units under the skin with breakfast, with lunch, with evening meal, and at bedtime.03/27/2025tive cholestyramine (Questran) 4 gram packet Take 1 packet by mouth with breakfast and with evening meal.05/15/2025tive pantoprazole (ProtoNix) 40 mg EC tablet Take 40 mg by mouth before breakfast and before evening meal.04/05/2025tive Active Problems ProblemNoted DateDiagnosed DateAbnormal cardiovascular stress test08/29/2025DOE (dyspnea on exertion)08/29/2025Left wrist pain06/27/2025Presence of left artificial knee joint06/27/2025rm /20/2025arpal tunnel syndrome 03/26/2025Gout03/26/2025History of kidney csheky0003/26/2025Hydroureteronephrosis 03/26/20256536Chkswlqajxtf40/20/2025Pilonidal cyst03/26/2025OSA (obstructive sleep apnea)03/10/2025telectasis mccsyzzog83/04/2025Pulmonary dpdvvgerys95/04/2025KI (acute kidney injury)03/09/20254560Ouiquzvopqb16/03/2025Lactic xhhotekv46/03/2025 Troponin level /29/2025ute uxfxpdfmeyekk38/27/2025Encounter for antineoplastic xditmhbmrvhbk12Enlarged pituitary gland upture of operation wound/S/P total knee replacement using cement, left/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 to type 2 diabetes ybbkftjh65/08/2023 05/17/2023 Assessment & Plan (05/18/2024 12:22 PM EDT): Hypertension is unchanged. States b/p at home is always < 130/80 Continue current medications. Blood pressure will be reassessed at the next regular appointment. Osteoarthritis of kneeost-traumatic osteoarthritis of left wristNonalcoholic fatty liver nmquewi23 Dyspnea on gipfrvya54 Assessment & Plan (05/18/2024 12:23 PM EDT): Fluid overloaded on exam today will increased lasix x next 2-3 days Assessment & Plan (12/02/2023 7:53 PM EST): FINLEY and BLE edema will order echocardiogram to assess cardiac function, diastolic function and valvular function RTC after echo completed Essential pbkxfyvaeabz51 Assessment & Plan (05/18/2024 12:22 PM EDT): Hypertension is stable Assessment & Plan (12/02/2023 7:51 PM EST): Hypertension is controlled and hypotensive despite not taking lisinopril 40 mg the last 2 days. Asked pt to stop norvasc and to hold lisinopril if SBP < 100 and she voiced understanding Metabolic syndrome XMixed biqlihtxqlojbd38 Assessment & Plan (05/18/2024 12:21 PM EDT): Lipid abnormalities are unchanged. Pharmacotherapy as ordered. Continue crestor Assessment & Plan (12/02/2023 7:50 PM EST): Continue crestor 10 mg daily Morbid cwippjr453Diastolic aziqyupugne17 Assessment & Plan (05/18/2024 12:24 PM EDT): Currently fluid overloaded and will increase diuretic x next 2-3 days to lasix 40 mg po bid, repeatBMP in 2 weeks to assess renal function and electrolytes/K+ and she voiced understanding of fluid restriction, NA restriction, daily weights and red flag symptoms of when to call office Assessment & Plan (12/02/2023 7:53 PM EST): Continue lasix 20 mg daily, stop norvasc, repeat echocardiogram Malignant bazusdhe74rthritisegeneration of thoracic intervertebral discIrritable bowel syndrome Type 2 diabetes rdlygblq95 Encounters DateTypeDepartmentCare CdksAtoyguhkgyx85/20/6958Rsctch95/23/2025Orders Only [facility] [address] [place] [facility] [place] [address] EmmyMelida MA Abnormal cardiovascular stress test (Primary Dx); FNILEY (dyspnea on exertion)08/27/2025Results Follow-Up [facility] [address] [place] [facility] [place] [address] Iza Roman CNP Lexiscan Stress Myocardial Perfusion Wnmrjst1008/23/2025Orders Only [facility] [address] [place] [facility] [place] [facility] [place] [address] Provider, MD Sunil 06/27/2025 9:20 AM EDTOffice Visit [facility] [address] [place] [facility] [place] [address] Iza Roman CNP Troponin level elevated (Primary Dx); Dyspnea on exertion; Chronic diastolic heart failure (CMS/HCC); 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 (CMS/HCC); Mixed hyperlipidemia; Benign hypertensive heart disease with heart failure (CMS/HCC); Edema, unspecified typefrom Last 3 Months Family History Medical HistoryRelationNameCommentsCoronary artery diseaseFatherHeart attack FatherRelationNameStatusCommentsFatherDeceasedMotherDeceasedSisterAlive Social History Tobacco UseTypesPacks/DayYears UsedDateSmoking Tobacco: NeverSmokeless Tobacco: NeverAlcohol UseStandard Drinks/WeekCommentsNever0 (1 standard drink = 0.6 oz pure alcohol)[place] Safety & EnvironmentAnswerDate RecordedFear of Current or Ex-PartnerNot on file12/29/2023Emotionally AbusedNot on file12/29/2023hysically AbusedNot on file12/29/2023Sexually AbusedNot on file12/29/2023hysically or Sexually AbusedNot on file12/29/2023CommentsUnknownSex and Gender InformationValueDate RecordedSex Assigned at ZlowsWsuomk12/05/2025 11:02 AM EDT Legal LvwBytmrn22/30/2022 12:43 AM EDTGender QbstythpXgqtif32/05/2025 11:02 AM EDTSexual OrientationHeterosexual or Zuuhazsr47/05/2025 11:02 AM EDT Last Filed Vital Signs Vital SignReadingTime TakenCommentsBlood Wjimqdux685/9008 9:08 AM EDT Creds317206/27/2025 9:08 AM EDTTemperature--Respiratory Ioey0594 10:25 AM EDTOxygen Tczlhywxkk74%06/27/2025 9:08 AM EDTInhaled Oxygen Concentration-- Ufuslr06.4 kg (217 lb)06/27/2025 9:08 AM ZUVIzkrkn787.4 cm (5')06/27/2025 9:08 AM EDTBody Mass Index42.38006/27/2025 9:08 AM EDT Plan of Treatment DateTypeDepartmentCare Team (Latest Contact Info)Sxirgxuglxf21/26/2025 8:30 AM ESTHospital Encounter [facility] Vascular Lab [address] [place] [address] Tiburcio Montalvo MD [address] [place] [address] Abnormal cardiovascular stress test; FINLEY (dyspnea on exertion)10/02/2025 10:30 AM EST - 10/02/2025 11:30 AM EST Surgery [facility] Vascular Lab [address] [place] [address] Tiburcio Montalvo MD [address] [place] [address] coronary angiographyHealth MaintenanceDue DateLast DoneCommentsCT Colonography 1950 4979Tjwgagvmljm86/05/1950Diabetes: Hemoglobin A1C1949FOBT1949 Medicare Annual Wellness (AWV)1950 8548Ofgwbccrgpuwz34/05/1950Diabetes: Retinopathy Eeiyogucm50/05/1960Depression Gihfscapu46/05/1962Zoster Vaccines (1 of 2)/06/2013Fall Risk Txwracqtg91/05/2015dult Xatvrco8109/18/2022 09/18/2012FIT3COVID-19 Vaccine ( season)2025 10/06/2021, 01/22/2021, 01/01/2021Influenza Vaccine (#1), 09/12/2023, 10/08/2022, Additional history existsColorectal Cancer Screening 03/25/2026FIT-DNA603Pneumococcal Vaccine: 50+ YearsCompleted 10/24/2017, 08/05/20165235YhmicucvmXwxzliteanmp68/01/2024, 05/13/2023HIB Vaccines Aged OutNo longer eligible based on patient's age to complete this topicHPV VaccinesAged OutNo longer eligible based on patient's age to complete this topic IPV VaccinesAged OutNo longer eligible based on patient's age to complete this topicMeningococcal B VaccineAged OutNo longer eligible based on patient's age to complete this topicMeningococcal VaccineAged OutNo longer eligible based on patient's age to complete this topicRotavirus VaccinesAged OutNo longer eligible based on patient's age to complete this topic Procedures Procedure NamePriorityDate/TimeAssociated DiagnosisCommentsLEXISCAN STRESS MYOCARDIAL PERFUSION BSBQJUATkytiws78/14/2025 8:31 AM EDT from Last 3 Months Results * Lexiscan Stress Myocardial Perfusion Imaging (08/20/2025 8:31 AM EDT) Anatomical RegionLateralityModalityOther Narrative Authorizing ProviderResult TypeResult StatusHistorical Provider MDCV STRESS PROCEDURESFinal Result from Last 3 Months Insurance * Guarantor: Tosha Macias TypeRelation to PatientDate of BirthPhone Billing AddressPersonal/QavzzpXdvo69/05/1951 [address] [address] Care Teams Team MemberRelationshipSpecialtyStart DateEnd Date Wild Stone DO PCP - General12/03/22
--- OUTSIDE RECORDS SUMMARY | 2025-09-27 10:55 | XMS_ITS | Encounter Summary ---
Author Organization [facility] Address [address] [place] [address] Care Team Providers Care Clay Roaster Name Role Phone Wild Stone DO Primary Care Provider [phone] Encounter Details DateTypeDepartmentCare Team (Latest Contact Info)Ifekscqbzqe11/20/2025Travel Social History Tobacco UseTypesPacks/DayYears UsedDateSmoking Tobacco: NeverSmokeless Tobacco: NeverAlcohol UseStandard Drinks/WeekCommentsNever0 (1 standard drink = 0.6 oz pure alcohol)[place] Safety & EnvironmentAnswerDate RecordedFear of Current or Ex-PartnerNot on file12/29/2023Emotionally AbusedNot on file12/29/2023hysically AbusedNot on file12/29/2023Sexually AbusedNot on file4Physically or Sexually AbusedNot on file12/29/2023CommentsUnknownSex and Gender InformationValueDate RecordedSex Assigned at ZuevpBrgfgr92/05/2025 11:02 AM EDT Legal DvbKdxsyq52/30/2022 12:43 AM EDTGender PzibwdjaOxdjet04/05/2025 11:02 AM EDTSexual OrientationHeterosexual or Fakywsqe28/05/2025 11:02 AM EDTdocumented as of this encounter Plan of Treatment DateTypeDepartmentCare Team (Latest Contact Info)Ttblgecqsha61/26/2025 8:30 AM ESTHospital Encounter [facility] Heart and Vascular Center Vascular Lab [address] [place] [address] Tiburcio Montalvo MD [address] [place] [address] Abnormal cardiovascular stress test; FINLEY (dyspnea on exertion)10/02/2025 10:30 AM EST - 10/02/2025 11:30 AM EST Surgery [facility] Vascular Lab [address] [place] [address] Tiburcio Montalvo MD [address] [place] [address] coronary angiographydocumented as of this encounter Visit Diagnoses Not on filedocumented in this encounter Care Teams Team MemberRelationshipSpecialtyStart DateEnd Date Wild Stone DO PCP - General12/03/22documented as of this encounter
--- OUTSIDE RECORDS SUMMARY | 2025-09-27 10:55 | XMS_ITS | Patient Health Record ---
Author Organization [facility] Address [address] [place] [address] Care Team Providers Care Barrel Loader Name Role Phone Aly Higgins [phone] Results Component Value Reference Range Notes [facility] Knee Left [id number]-[id number] Reviewed date:10/18/2024 02:45:04 PM Interpretation: Performing Lab: Notes/Report: Reason For Referral No Information Medications Medication SIG (Take, Route, Frequency, Duration) Notes Start Date End Date Status amLODIPine UnknownfurosemideUnknownspironolactoneUnknowncarvedilolUnknownMagnesiumUnknown lisinoprilUnknownmetFORMINUnknownaspirinUnknownNovolinUnknownMobic 15 mg1 tab(s) orally once a day; Duration: 45 days04/14/2022UnknownVision SupplementUnknown rosuvastatinUnknown Social History Tobacco Use: Social History Observation Description Date Details (start date - stop date) Never Smoker NA - NA Smoking History Question Answer Notes Smoking Status NonSmoker Problems Problem Type SNOMED Code ICD Code Onset Dates Problem Status W/U Status Risk Notes Problem History of musculosk eletal operation (868869303) Aftercare following joint replacement surgery (Z47.1) ActiveconfirmedProblemPain in wrist (74883469)Left wrist pain (M25.532)Active confirmedProblemOsteoarthritis of knee (144758729)Primary osteoarthritis of left knee (M17.12)ActiveconfirmedProblemArtificial knee joint present (716710724941) Presence of left artificial knee joint (Z96.652)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)ActiveconfirmedProblemDehiscence of surgical wound (88902391)Dehiscence of operative wound, initial encounter (T81.31XA)ActiveconfirmedProblemPre-procedure evaluation check (478206821) Preoperative testing (Z01.818)ActiveconfirmedProblemDehiscence of surgical wound (disorder) (66995368)Dehiscence of operative wound, subsequent encounter (T81.31XD)ActiveconfirmedProblemTraumatic wound dehiscence (234471169)Traumatic wound dehiscence, initial encounter (T81.33XA)Activeconfirmed Encounters Encounter Location Date Provider Diagnosis [facility] [address] [place] [address] 10/02/2024 Aly Higgins Aftercare following joint replacement surgery Z47.1 and Presence of left artificial knee joint Z96.652 Assessments Encounter Date Diagnosis (ICD Code) Assessment Notes Treatment Notes Treatment Clinical Notes Section Notes 10/02/2024 Aftercare following joint replac ement surgery (ICD-10 - Z47.1) left total knee tgsoqtiouxe86/26/2024resence of left artificial knee joint (ICD-10 - Z96.652)left total knee yflnwyxkhqo74/26/2024Otherpatient is going to continue activities as tolerated.left total knee replacement Plan Of Treatment Pending Test Test Name Order Date [facility] Knee, Left [id number] -[id number] 07/05/2023 [facility] Knee Left [id number] 11/09/2023 [facility] TOTAL - PREOP- CBC WITH DIFF, BMP, TYPE AND SCREEN, MRSA BY PCR BILATERAL NARES, EKG, TOTAL JOINT [facility], PT / OT EVALUATION , 08/24/2023 Insurance Providers Payer Name Payer Address Payer Phone Subscriber Number Group Number Insured Name Patient Relationship to Insured Coverage Start Date Coverage End [place] [address] [place] [address] [id number] Olivia MCNEAL - patient is the insuredMedical [facility] [address] [place], [place] [id number], SUZANNESelf - patient is the insured Medications Administered Medication Instructions Date of Administration Dosage Notes Gel One .0 mLGel One.0 mLGel One.0 mL Medical (General) History Medical History History ICD Code Cancer Type Yes-skin Diabetes: Yes-TYPE 2High Blood Pressure: YesSurgical History Surgery Date(Month/Year) I&D of left knee with secondary closure of wound dehisence 11/2023 lymphnodes skin cancertrigger fingercataracttonsilsLeft eye yhsedex82/0019Left arthroscopic rotator cuff repair with open biceps tenodesis and extensive xgmsfrahurb01/2019 Broken prv6571Pkcqe LigationCarpal glbkoc6320Ufxj bone gxpi1088
--- OUTSIDE RECORDS SUMMARY | 2025-09-27 10:55 | XMS_ITS | Clinical Summary ---
Author Organization [employer] tem Address [id number] [address] [place] [address] Care Team Providers Care Cotton Factor Name Role Phone Wild Stone Primary Care Provider Allergies Active AllergyReactionsCriticalityNoted DateCommentsAmlodipineOther (See Comments)03/26/2025 Possible leg swelling SpironolactoneOther (See Comments)03/26/2025 Hyperkalemia Medications MedicationSigDispense QuantityRefillsLast FilledStart DateEnd DateStatus aspirin (ADULT LOW DOSE ASPIRIN) 81 mg Active blood-glucose sensor (DEXCOM G7 SENSOR) device Indications: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 ([facility])1 Unit by miscellaneous route every 10 days. 3 each 3Active magnesium oxide 400 mg magnesium tablet Magnesium 90 tablet ctive furosemide (LASIX) 40 mg tablet Take 1 tablet (40 mg total) by mouth daily.4Active clobetasoL (TEMOVATE) 0.05 % ointment Apply 1 Application topically in the morning and 1 Application before bedtime 15 g 5Active insulin degludec (TRESIBA FLEXTOUCH U-100) 100 unit/mL (3 mL) insulin pen Indications:Type 2 diabetes mellitus with stage 2 chronic kidney disease, with long-term current use of insulin([facility])Inject 50 Units under the skin nightly. 45 mL 5Active cholestyramine (QUESTRAN) 4 g packet mix 1 packed DIRECTED and take BY MOUTH DAILY 30 packet 5Active suzetrigine (JOURNAVX) 50 mg tablet Indications:Degeneration of intervertebral disc of lumbar region with discogenic back painTake 1 tablet (50 mg total) by mouth every 12 (twelve) hours. 30 tablet 1095Active insulin aspart U-100 (NovoLOG Flexpen U-100 Insulin) 100 unit/mL (3 mL) insulin pen Inject 8 Units under the skin in the morning and 8 Units at noon and 8 Units in the evening. Injectwith meals.5Active suzetrigine (JOURNAVX) 50 mg tablet Take 1 tablet (50 mg total) by mouth every 12 (twelve) hours. 5 tablet 5Active gabapentin (NEURONTIN) 100 mg capsule Indications:Degeneration of intervertebral disc of lumbar region with discogenic back painTake 1 capsule (100 mg total) by mouth 3 (three) times a day. 90 capsule 5Active carvediloL (COREG) 25 mg tablet Indications: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 ([facility])Take 1 tablet (25 mg total) by mouth in the morning and 1 tablet (25 mg total) before bedtime. 180 tablet 5Active metFORMIN (GLUCOPHAGE) 1000 mg tablet Take 1 tablet (1,000 mg total) by mouth in the morning and 1 tablet (1,000 mg total) in the evening. Take with meals. 180 tablet 5Active lisinopriL (PRINIVIL,ZESTRIL) 40 mg tablet TAKE 1 TABLET BY MOUTH IN THE MORNING 90 tablet 5Active rosuvastatin (CRESTOR) 10 mg tablet TAKE 1 TABLET BY MOUTH EVERY MORNING 90 tablet 5Active allopurinoL (ZYLOPRIM) 100 mg tablet TAKE 1 TABLET BY MOUTH IN THE MORNING 30 tablet 3105Active allopurinoL (ZYLOPRIM) 100 mg tablet Take 1 tablet (100 mg total) by mouth in the morning. 30 tablet 5Active lisinopriL (PRINIVIL,ZESTRIL) 40 mg tablet Take 1 tablet (40 mg total) by mouth in the morning. 90 tablet 1105Active metFORMIN (GLUCOPHAGE) 1000 mg tablet Take 1 tablet (1,000 mg total) by mouth in the morning and 1 tablet (1,000 mg total) in the evening. Take with meals. 180 tablet 5Active carvediloL (COREG) 25 mg tablet Indications: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 ([facility])Take 1 tablet (25 mg total) by mouth in the morning and 1 tablet (25 mg total) before bedtime. 180 tablet 5Active rosuvastatin (CRESTOR) 10 mg tablet Take 1 tablet (10 mg total) by mouth every morning. 90 tablet 5Active pantoprazole (PROTONIX) 40 mg EC tablet Take 1 tablet (40 mg total) by mouth in the morning and 1 tablet (40 mg total) in the evening. Takebefore meals. 90 tablet 5Active Active Problems ProblemNoted DateDiagnosed DateDegeneration of intervertebral disc of lumbar region with discogenic back pain07/17/2025Rupture of operation wound12/23/2023 S/P total knee replacement using cement, left10/03/2023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 to type 2 diabetes osrpvfuq82/08/2023 Osteoarthritis of knee09/06/2022ost-traumatic osteoarthritis of left wrist 09/06/2022Essential kztvxfmieltk08/29/2022Metabolic syndrome X08/05/2022Morbid uoyrgzu4704/08/2022Nonalcoholic fatty liver fdvaeka8802/16/2022Mixed hyperlipidemia 12/25/2021Malignant melanoma of right upper limb, including rivokonp27/15/2020 Uxsohugqg85/18/2017Degeneration of thoracic intervertebral disc02/03/2017 Irritable bowel kcceivon00/30/2017Type 2 diabetes /28/2016 Resolved Problems ProblemNoted DateDiagnosed DateResolved DateEnlarged pituitary gland12/30/2023 03/21/20254815Coabkakdpttn08/04/202305/3Pain in wrist/07/2023 Iqlyrzrwjvit48enign hypertension with chronic kidney disease, stage II04///3Dyspnea on inczltgg77/4Diastolic yyfgwhyqyyd46/26/202202/Fracture of orbital floor/02/2022 Ezsxghxuviy49 Encounters DateTypeDepartmentCare WdshJdhcrqxacby58/19/2025Orders Only [facility] [address] [place] [address] Ref Prov, Not In System 08/07/2025Refill [facility] [address] [place] [address] Tressa Campbell, MARLENE 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 ([facility])08/06/2025Refill [facility] [address] [place] [address] Wild Stone DO 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 ([facility])08/01/2025Orders Only [facility] [address] [place] [address] Ref Prov, Not In System 07/30/2025Orders Only [facility] [address] [place] [address] Ref Prov, Not In System 07/29/2025Orders Only [facility] [address] [place] [address] Wild Stone DO 07/29/2025Telephone [facility] [address] [place] [address] Amanda Poole CMA 07/19/2025Orders Only [facility] [address] [place] [address] Wild Stone, Degeneration of intervertebral disc of lumbar region with discogenic back pain (Primary Dx)07/19/2025Telephone [facility] [address] [place] [address] Amanda Poole CMA 07/17/2025 9:00 AM EDTOffice Visit [facility] [address] [place] [address] Wild Stone, 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 ([facility]) (Primary Dx); Degeneration of intervertebral disc of lumbar region with discogenic back pain; Morbid obesity ([facility])07/17/2025Orders Only [facility] [address] [place] [address] Ref Prov, Not In System 07/17/20250097Imiujr57/08/2615Lxkmrn00/28/2025Orders Only [facility] [address] [place] [address] Wild Stone DO 07/04/2025Telephone [facility] [address] [place] [address] Karen Montalvo CMA from Last 3 Months Immunizations ImmunizationAdministration DatesNext DueInfluenza (IM) Preservative Free 09/05/2016,09/07/2015Influenza Vaccine, Quadrivalent, Wipppgozjf04/06/2023 Influenza, High-dose, Clgztgkzpucx73/02/2022Influenza, Injectable, MDCK, Lnhfrvcqargt47/28/2019Influenza, Injectable, Mdck, Preservative Free, Quad 10/24/2017Influenza, Injectable, Kxzniudvqhyf20/06/2020Influenza, Trivalent, Dfcmmxsxso23/10/2024Pneumococcal Conjugate 13-Zjlwos5708/05/2016Pneumococcal Njbdfrqbtechnh81/18/3811Hykt88/12/0230Ujfkgwipg91/08/2013 Family History Medical HistoryRelationNameCommentsHeart diseaseFatherLeukemiaFatherStroke Maternal GrandfatherStrokeMotherdied at irz53Ef Known ProblemsSisterBreast cancerNeg HxRelationNameStatusCommentsFatherDeceasedMaternal GrandfatherMother DeceasedSisterAlive Social History Tobacco UseTypesPacks/DayYears UsedDateSmoking Tobacco: NeverSmokeless [...] relatives?Once a week03/10/2023How often do you attend anabaptist or yarsani services?Never03/10/2023o you belong to any clubs or organizations such as anabaptist groups, unions, fraternal or athletic groups, or school groups? Yes03/10/2023How often do you attend meetings of the clubs or organizations you belong to?Never03/10/2023re you , , , , never , or living with a partner?Ukghgqk1903/10/2023UDIT-CAnswerDate RecordedQ1: How often do you have a [...] care, and heating?Not hard at all03/19/2024HQ-2AnswerDate RecordedTotal Lmuoq244Finjordan [facility] [place] of Occupational Health - Occupational Stress QuestionnaireAnswerDate [...] of a household?No03/19/2024 ChildcareAnswerDate RecordedDo problems getting child care group leader make it difficult for you to work [...] True07/17/2025Purpose - LifeAnswerDate RecordedPurpose and direction in akduPzsjoeq92/11/2021CommentsNoSex and Gender Information ValueDate RecordedSex Assigned at BirthNot on fileLegal GiaQusyxw71/06/2015 11:42 AM EDTGender IdentityNot on fileSexual OrientationNot on file Last Filed Vital Signs Vital SignReadingTime TakenCommentsBlood Mmwjjbat759/8207/17/2025 8:54 AM EDT Jdmsz685807/17/2025 8:54 AM AFJUygdzkkulmt30.8 ??C (98.2 ??F)07/17/2025 8:54 AM EDTRespiratory Bqxb052507/17/2025 8:54 AM EDTOxygen Mhfuggrqze66%07/17/2025 8:54 AM EDTInhaled Oxygen Concentration--Alrugf28.8 kg (209 lb)07/17/2025 8:54 AM EDT Xdkbpe807.4 cm (5')07/17/2025 8:54 AM EDTBody Mass Index40.8207/17/2025 8:54 AM EDT Plan of Treatment DateTypeDepartmentCare Team (Latest Contact Info)Jtstxpthdgp51/10/2025 8:30 AM ESTOffice Visit [facility] [address] [place] [address] Wild Stone, DO [address], [place] [address] Health MaintenanceDue DateLast DoneCommentsZoster (Shingles) Vaccine (1 of 2) 03/09/2013RSV ( or age 60+ yrs) (1 - 1-dose 75+ series)2024 Medicare Annual Wellness Visit/, 03/10/2023Influenza Vaccine , 09/12/2023, 10/08/2022, Additional history existsDiabetic Ophthalmology Exam, 09/01/2023, 2DTaP,Tdap and Td Vaccines (2 - Td or Tdap)/10/2012Postponed from 09/18/2022 (Vaccine Not Available)Colon Cancer Screening 3 Year Uqdwokcyo80/ Depression Yxnficpbq32Fall Risk Ikixpfpdw22/08/2025 Tobacco Czciehwna42OVID-19 FjurgiqUhcawlupjvdw91/30/2021, 01/22/2021, 01/01/2021 Medical Devices Not on file Procedures Procedure NamePriorityDate/TimeAssociated DiagnosisCommentsUS, RETROPERITNL ABD, IZQOtadjua83/17/2025 2:55 PM ESTXR CHEST 1 SWUkdzrrt58/25/2025 8:50 AM EDTXR KNEE LT 3 LRTUfonwgk49/13/2025 9:13 AM EDTEXTERNAL SUPERVISOR BODY ASSEMBLY, CGM SYSRoutine 07/17/2025 3:06 PM EDTPOCT HEMOGLOBIN N4HWmbrmxq95/10/2025 9:13 AM EDT 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 ([facility]) MULTIPLE DRTCJkilqig68/09/2025 9:54 AM EDTHM DIABETES EYE OITWPixsvfy43/29/2024 9:51 AM EDTCOLOGUARD NON-DIGVPJTNTNpbqfnn42/19/2023 10:00 AM EDT Special screening for malignant neoplasm of colon from Last 3 Months or Most Recently Relevant to Health Maintenance Results * [place], [place] [employer] (09/23/2025 2:55 PM EST) Narrative Authorizing ProviderResult TypeResult StatusNot In System Ref Prov PROCEDURE/MINOR SURGICAL ORDERABLESFinal ResultPerforming OrganizationAddress City/State/ZIP CodePhone Number MANUALLY TRANSCRIBED RESULTS * X-ray chest 1 view (08/01/2025 8:50 AM EDT)Anatomical RegionLateralityModality Body, ChestN/AComputed Radiography Narrative Authorizing ProviderResult TypeResult StatusNot In System Ref ProvIMG DIAGNOSTIC IMAGING ORDERABLESFinal Result * X-ray knee left 3 views (07/20/2025 9:13 AM EDT)Anatomical RegionLaterality ModalityLower Extremities, MSK, KneeLeftComputed Radiography Narrative Authorizing ProviderResult TypeResult StatusNot In System Ref ProvIMG DIAGNOSTIC IMAGING ORDERABLESFinal Result * EXTERNAL SUPERVISOR BODY ASSEMBLY, CGM SYS (07/17/2025 3:06 PM EDT) Narrative Authorizing ProviderResult TypeResult StatusNot In System Ref ProvPR MISCELLANEOUS SERVICESFinal ResultPerforming OrganizationAddressCity/State/ZIP CodePhone Number MANUALLY TRANSCRIBED RESULTS * POCT Hemoglobin A1c (07/17/2025 9:13 AM EDT)ComponentValueRef RangeTest Method Analysis TimePerformed AtPathologist SignatureExternal Poct Hgb A1C7.04 - 7 % MANUALLY TRANSCRIBED RESULTSSpecimen (Source)Anatomical Location / Laterality Collection Method / VolumeCollection TimeReceived HsldAlfuw87/10/2025 9:13 AM EDT Narrative Authorizing ProviderResult TypeResult StatusDennis G Furlong DOPOINT OF CARE TEST ORDERABLESFinal ResultPerforming OrganizationAddressCity/State/ZIP Code Phone Number MANUALLY TRANSCRIBED RESULTS * Multiple labs (07/16/2025 9:54 AM EDT) Narrative Authorizing ProviderResult TypeResult StatusNot In System Ref ProvPR IMAGING Final ResultPerforming OrganizationAddressCity/State/ZIP CodePhone Number MANUALLY TRANSCRIBED RESULTS * HM DIABETES EYE EXAM (09/04/2024 9:51 AM EDT) Narrative Authorizing ProviderResult TypeResult StatusNot In System Ref ProvHEALTH MAINTENANCEFinal ResultPerforming OrganizationAddressCity/State/ZIP CodePhone Number MANUALLY TRANSCRIBED RESULTS * Cologuard [facility] (03/25/2023 10:00 AM EDT)ComponentValueRef RangeTest MethodAnalysis TimePerformed AtPathologist SignatureEXTERNAL COLOGUARDNegative Xqqtogix21/28/2023 4:50 PM EDTEXInnovatient Solutions (CLIA #:[id number]) Comment: NEGATIVE TEST RESULT. A negative Cologuard result indicates a low likelihood that a colorectal cancer (CRC) or advanced adenoma (adenomatous polyps with more advanced pre-malignant features) ??is present. The chance that a person with a negative Cologuard test has a colorectal cancer is less than 1in 1500 (negative predictive value >99.9%) or has an advanced adenoma is less than 5.3% (negative predictive value 94.7%). These data are based on a prospective cross-sectional study of 10,000individuals at average risk for colorectal cancer who were screened with both Cologuard and colonoscopy. (Karla Kendall al, N Engl J Med 2014;370(14):7386-2426) The normal value (reference range) for this assay is negative. COLOGUARD RE-SCREENING RECOMMENDATION: Periodic colorectal cancer screening is an important part ofpreventive healthcare for asymptomatic individuals at average risk for colorectal cancer. ??Following a negative Cologuard result, the [place] [employer] and U.S. Multi-Society Task Force screening guidelines recommend a Cologuard re-screening interval of 3 years. References: [place] [employer] Guideline for Colorectal Cancer Screening: https://www.cancer.or g/cancer/tsood-ncrgyk-frcvci/jbfebyqxx-frhleairq-jhbizyt/acs-recommendations.htm kit; Rober HIGUERA, Carter BEAUCHAMP, Main VAIL, Colorectal Cancer Screening: Recommendations for Physicians and Patients from the U.S. Multi-Society Task Force on Colorectal Cancer Screening , Am J Gastroenterology 2017; 112:7839-4680. TEST DESCRIPTION: Composite algorithmic analysis of stool DNA-biomarkers with hemoglobin immunoassay. ?? Quantitative values of individual biomarkers are not reportable and are not associated with individual biomarker result reference ranges. Cologuard is intended for colorectal cancer screening ofadults of either sex, 45 years or older, [...] screened with both Cologuard and colonoscopy. (Karla Kendall al, N Engl J Med 2014;370(14):5905-7929.) Cologuard may produce a false negative or false positive result (no colorectal cancer or precancerous polyp present at colonoscopy follow up). A negative Cologuard test result does not guarantee the absence of CRC or advanced adenoma (pre-cancer). The current Cologuard screening interval is every 3 years. ([place] [employer] and U.S. Multi-Society Task Force). Cologuard performance data in a 10,000 patient pivotal study using colonoscopy as the reference method can be accessed at the following location: www.[employer]Wine/results. Additional description of the Cologuard test process, warnings and precautions can be found at www.cologuard.com. Specimen (Source)Anatomical Location / LateralityCollection Method / Volume Collection TimeReceived TimeStool specimen (specimen)Rectum structure / Unknown 03/25/2023 10:00 AM EDT03/26/2023 1:41 PM EDT Narrative Authorizing ProviderResult TypeResult StatusWild Stone DOLAB ORDERABLES Final ResultPerforming OrganizationAddressCity/State/ZIP CodePhone Number [employer] (CLIA #:[id number]) [address] [place] [address], from Last 3 Months or Most Recently Relevant to Health Maintenance Insurance Care Teams Team MemberRelationshipSpecialtyStart DateEnd Date Wild Stone DO [address], [place] [address] PCP - [facility]11/30/17
--- OUTSIDE RECORDS SUMMARY | 2025-09-27 11:05 | XMS_ITS | CCD ---
Author Organization [facility] Care Team Providers Care Lactation Nurse Name Role Phone Furlong, Wild G Unavailable Unavailable Scheufele, Anabaptism Unavailable Unavailable Furlong, DO Wild Primary Care [...] able DO Wild Centeno Primary Care Provider ELVIRA Simon Zabrina Attending Provider MD Mohan Mccartney Referring Provider MD Rose Ohara Attending Provider MD Mohan Mccartney Referring Provider [phone] MD Rose Ohara Attending Provider Unallocated, Noms [...] E Referring Unavailable BLACKSTONDB T Attending Unavailable RONALDO, ALY E Referring Unavailable BLACKSTONDB T Attending Unavailable BRINK [place]IR[place] Attending Unavailable RONALDO, ALY E Referring Unavailable BRINK [place] Attending Unavailable RONALDO, ALY E Referring Unavailable KELBLEY, ZABRINA Attending Unavailable RONALDO, ALY E Referring Unavailable SHAN HASKINS Attending Unavailable KELBLEY, ZABRINA Attending Unavailable RONALDO, ALY E Referring Unavailable TWINBLEY, ZABRINA Attending Unavailable RONALDO, ALY E Referring Unavailable KELBLEY, ZABRINA Attending Unavailable RONALDO, ALY E Referring Unavailable FURLONG, WILD G Referring Unavailable FURLONG, WILD G Primary Care Unavailable FURLONG, WILD G Referring Unavailable FURLONG, WILD G Primary Care Unavailable Unallocated , Noms Provider [facility] Furlong DO, Wild G Primary Care Provider [phone] Furlong DO, Wild Primary Care Provider Mohan Mccartney MD Referring Provider Rose Ohara MD Attending Provider Furlong DO, Wild G Primary Care Provider Furlong DO, Wild Primary Care Provider [phone] Mohan Mccartney MD Referring Provider Rose Ohara MD Attending Provider Jessica Noble DO Attending Provider Furlong DO, Wild G Primary Care Provider Furlong DO, Wild G Primary Care Provider [phone] RAJNI CLINE Attending Unavailable RAJNI CLINE Admitting Unavailable FURLONG, WILD G Primary Care Unavailable JESSICA NOBLE Referring Unavailable MARTA PERKINS ABDUL-HAFILemuel Consulting Unavail able KENJI-PITER TAPIAER Attending Unavail able AL-PITER TAPIAER Admitting Unavail able FURLONG, WILD G Primary Care Unavailable LITZY DALLAS Consulting Unavailable DONG ZHENG Consulting Unavailable SHAHRIAR RICKS Consulting Unavailable FURLONG, WILD G Attending Unavailable FURLONG, WILD G Referring Unavailable FURLONG, WILD G Primary Care Unavailable FURLONG, WILD G Referring Unavailable FURLONG, WILD G Primary Care Unavailable Shavon Mustafa MD Attending Provider Furlong DO, Wild Primary Care Provider [phone] MEGANWILD JIMENEZ Primary Care Physician GIUSEPPE JAMA Attending Unavailable FURLONG, WILD G [...] Unavailable Lev, Rose Attending Unavailable Mohan Mccartney M Referring Unavailable Lue, Shavon M Admitting Unavailable Lue, Shavon M Attending Unavailable Furlong, Wild Primary Care Unavailable Hay, Jessica E Admitting Unavailable Hay, Jessica E Attending Unavailable Lev, Rose Referring Unavailable Lue, Shavon M. Attending Unavailable Lue, Shavon M. Referring Unavailable Lue, Shavon M. Admitting Unavailable Lue, Shavon M. Attending Unavailable Lue, Shavon M. Attending Unavailable Lue, Shavon M. Attending Unavailable CATHERINE, ALFRED Attending Unavailable CATHERINE, ALFRED Attending Unavailable CATHERINE, ALFRED Attending Unavailable CATHERINE, ALFRED Attending Unavailable CATHERINE, ALFRED Attending Unavailable Allergies Allergy ClassificationReported Allergen(s)Allergy TypeDate of OnsetReaction(s) Facility (1 source)No AlertPropensity to adverse reactions to [id number] (20 sources)amLODIPine; Translations: [AMLODIPINE]Drug Rasuulj29-74-3952Lrazr (See Comments)[employer] [facility] (20 sources)Spironolactone; Translations: [SPIRONOLACTONE]Drug Qzvcexu87-86-7895 Other (See Comments)[employer] (1 source)empagliflozin; Translations: [EMPAGLIFLOZIN]Drug Zgeapaj81-74-1768 [facility] Medications Current Medications MedicationDrug Class(es)DatesSig (Normalized)Sig (Original)acetaminophen 325 mg / oxyCODONE hydrochloride 5 mg oral tablet (2 sources)Opioid AgonistStart: 03-10-2025 End: 99-87-8274ykaf 1 tablet by mouth every six hours as needed for pain oxyCODONE-acetaminophen (PERCOCET) 5-325 mg per tablet Take 1 tablet by mouth every 6 (six) hours as needed for pain. 03/10/2025 03/13/2025 ActiveStart: 03-10-2025 End: 73-15-6561Miavxxeawiq Probiotic Blend (1 source)Start: 34-37-5023Aqmwmyioomp Probiotic Blend Refill(s) 0 Start Date: 01/16/25 Status: Ordered Repeat number: 1allopurinol 100 mg oral tablet (20 sources)Xanthine Oxidase InhibitorStart: 12-11-2596bzmv 1 tablet by mouth in the morningallopurinoL (ZYLOPRIM) 100 mg tablet Take 1 tablet (100 mg total) by mouth in the morning. 30 tablet 5 08/07/2025 ActiveStart: 67-13-8795elbk 1 tablet by mouth in the morningallopurinoL (ZYLOPRIM) 100 mg tablet TAKE 1 TABLET BY MOUTH IN THE MORNING 30 tablet 3 08/07/2025 ActiveStart: 01-16-2025 allopurinol Refills(s) 0 Start Date: 01/16/25 Status: Ordered Repeat number: 1 Start: 12-23-2023 End: 60-02-7025mcqf 1 tablet by mouth once daily in the morningAllopurinol 100 mg tablet Active 100 MG PO Every morning July 16, 2025 12:00am Complies with drug therapyamoxicillin 875 mg / clavulanate 125 mg oral tablet (2 sources)Penicillin-class AntibacterialStart: 03-10-2025 End: 17-00-6237gwrn 1 tablet by mouth onceamoxicillin-pot clavulanate (AUGMENTIN) 875-125 mg per tablet Take 1 tablet by mouth every 12 (twelve) hours. 03/10/2025 03/15/2025 ActiveStart: 03-10-2025 End: 78-80-7361dkieq-glucose sensor (DEXCOM G7 SENSOR) device (20 sources)Start: 07-61-7980afoya-glucose sensor (DEXCOM G7 SENSOR) device Indications: 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 (CMS-HCC) 1 Unit by miscellaneous route every 10 days. 3 each 5 10/26/2023 Activecarvedilol 25 mg oral tablet (20 sources)alpha-Adrenergic Sophy, beta-Adrenergic BlockerStart: 08-07-2025 take 1 tablet by mouth in the morning, then take 1 tablet by mouth at bedtime carvediloL (COREG) 25 mg tablet Indications: 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 (CMS-HCC) Take 1 tablet (25 mg total) by mouth in the morningand 1 tablet (25 mg total) before bedtime. 180 tablet 3 08/07/2025 ActiveStart: 54-49-3140zcqo 1 tablet by mouth in the morning, then take 1 tablet by mouth at bedtimecarvediloL (COREG) 25 mg tablet Indications: 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 (CMS-HCC) Take 1 tablet (25 mg total) by mouth in the morningand 1 tablet (25 mg total) before bedtime. 180 tablet 1 08/07/2025 ActiveStart: 04-11-2019 End: 27-84-9499cnye 1 tablet by mouth in the morning, then take 1 tablet by mouth at bedtimecarvediloL (COREG) 25 mg tablet Indications: 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 (CMS-HCC) Take 1 tablet (25 mg total) by mouth in the morningand 1 tablet (25 mg total) before bedtime. 180 tablet 3 08/20/2024 08/07/2025 Discontinued cholestyramine resin 4000 mg powder for oral suspension (16 sources)Bile Acid SequestrantStart: 73-64-6887nmyitgyxfcjquk (QUESTRAN) 4 g packet mix 1 packed DIRECTED and take BY MOUTH DAILY 30 packet 1 05/15/2025 ActiveStart: 05-14-2025 End: 98-17-6455rast 4 g by mouth in the morningcholestyramine 4 gram powder Take 4 g by mouth in the morning. 239.4 g 1 05/14/2025 05/15/2025 Discontinued ciprofloxacin 500 mg oral tablet (1 source)Quinolone AntimicrobialStart: 33-19-4125tyti 1 tablet by mouth every twelve hoursclobetasol propionate 0.0005 mg/mg topical ointment (20 sources)CorticosteroidStart: 37-31-9081Ykgnqcvwrn 0.05 % ointment Active 1 APPLIC TOPICAL Twice daily as needed for rash July 16, 2025 12:00am Complies with drug therapyStart: 06-14-2024 End: 23-12-4270ztzvqwjazX (TEMOVATE) 0.05 % ointment Apply 1 Application topically in the morning and 1 Application before bedtime 15 g 04/07/2025 Active colchicine 0.6 mg oral tablet (5 sources)Start: 07-29-2025 End: 27-38-2871qkxm 1 tablet by mouth in the morning, then take 1 tablet by mouth at bedtimecolchicine (COLCRYS) 0.6 mg tablet Take 1 tablet (0.6 mg total) by mouth in the morning and 1 tablet (0.6 mg total) before bedtime. Do all this for 5 days. 10 tablet 07/29/2025 08/03/2025 ActiveStart: 07-04-2025 End: 14-59-7900lvrc 1 tablet by mouth in the morning, then take 1 tablet by mouth at bedtimecolchicine (COLCRYS) 0.6 mg tablet Take 1 tablet (0.6 mg total) by mouth in the morning and 1 tablet (0.6 mg total) before bedtime. Do all this for 5 days. 10 tablet 07/04/2025 07/09/2025 ActiveStart: 12-23-2023 End: 56-55-0921eyvi 1 tablet by mouth in the morning, then take 1 tablet by mouth at bedtimecolchicine (COLCRYS) 0.6 mg tablet Indications: Acute gout due to renal impairment involving toe ofright foot Take 1 tablet (0.6 mg total) by mouth in the morning and 1 tablet (0.6 mg total) before bedtime. Do all this for 4 days. 8 tablet 0 12/23/2023 12/27/2023 ActiveDrug or medicament (substance) (2 sources)dulaglutide (13 sources)GLP-1 Receptor AgonistStart: 41-39-1790Uaxwwhxoj Pen See Instructions, Refills(s) 0 Start Date: 01/16/25 Status: Ordered Repeat number: 1 Start: 04-11-2019 End: 54-20-9590Dkpyfmkajja 1.5 mg/0.5 mL pen injector Discontinued 0.75 MG SUBCUT every week April 11, 2019 12:00am December 15, 2023 11:19amStart: 04-11-2019 End: 71-87-0578npodhm 0.75 mg by subcutaneous injection every weekDulaglutide Discontinued 0.75 MG SUBCUT every week April 10, 2019 11:00pm December 15, 2023 10:19amergocalciferol 1.25 mg oral capsule (11 sources)Provitamin D2 CompoundStart: 01-15-2024 End: 90-73-3552munt 1 capsule by mouth every weekergocalciferol (DRISDOL) 1,250 mcg (50,000 unit) capsule Take 1 capsule (50,000 Units total) by mouth once a week. 12 capsule 1 01/15/2024 07/16/2024 Discontinued (Discontinued by another clinician)gabapentin 100 mg oral capsule (9 sources)Anti-epileptic AgentStart: 21-25-2356qsol 1 capsule by mouth three times dailygabapentin (NEURONTIN) 100 mg capsule Indications: Degeneration of intervertebral disc of lumbar region with discogenic back pain Take 1 capsule (100 mg total) by mouth 3 (three) times a day. 90 capsule 07/19/2025 Active Start: 04-10-2025 End: 46-60-9440iuqm 1 capsule by mouth three times dailygabapentin (NEURONTIN) 300 mg capsule Take 1 capsule (300 mg total) by mouth 3 (three) times a day. 04/13/2025 04/23/2025 Expiredglucagon (rdna) 1 mg injection (2 sources)Antihypoglycemic AgentStart: 28-76-2901Ygfxn: 06-15-92838831 ml glucose 100 mg/ml injection (5 sources)Start: 13-59-8868Hxipo: 79-65-9641ddipwylp bolus 10% 125 mLStart: 96-10-1209Wozyl: 03-05-2025 End: 52-80-1843Isiqc: ml hydrALAZINE hydrochloride 20 mg/ml injection (1 source)Arteriolar VasodilatorStart: ml insulin aspart, human 100 unt/ml pen injector (20 sources)Insulin AnalogStart: 13-04-1732dyewgoz aspart U-100 (NovoLOG Flexpen U-100 Insulin) 100 unit/mL (3 mL) insulin pen Inject 8 Units under the skin in the morning and 8 Units at noon and 8 Units in the evening. Inject with meals. 07/17/2025 ActiveStart: 01-48-1968gbdulo 6 [IU] by subcutaneous injection once before mealtimeInsulin Aspart U-100 (Novolog Flexpen U-100 Insulin) 100 unit/mL (3 mL) insulin pen Active 6 UNIT SUBCUT 3x/Day before meals July 16, 2025 12:00am Complies with drug therapyStart: 14-69-8504Lchdcgc Aspart FlexPen 100 UNIT/ML SOPN Inject 6 Units into the skin 3 times daily as needed 03/27/2025 ActiveStart: 07-13-2023 End: 58-91-3004qxqfatp aspart U-100 (NovoLOG Flexpen U-100 Insulin) 100 unit/mL (3 mL) insulin pen Inject 6 Units under the skin in the morning and 6 Units at noon and 6 Units in the evening. Inject with meals. 15 mL 1 03/27/2025 07/17/2025 Discontinued3 ml insulin degludec 100 unt/ml pen injector (20 sources)Insulin AnalogStart: 58-29-1269Vgfhrvd Degludec 100 unit/mL (3 mL) insulin pen Active 60 UNIT SUBCUT Every morning July 16, 2025 12:00am Complies with drug therapyStart: 90-66-0486cfojnwk degludec (TRESIBA FLEXTOUCH U-100) 100 unit/mL (3 mL) insulin pen Indications: Type 2 diabetes mellitus with stage 2 chronic kidney disease, with long-term current use of insulin ([facility] [place]) Inject 50 Units under the skin nightly. 45 mL 1 04/24/2025 ActiveStart: 03-21-2025 End: 83-20-1530adxvmwx degludec (TRESIBA FLEXTOUCH U-100) 100 unit/mL (3 mL) insulin pen Inject 50 Units under theskin nightly. 03/21/2025 04/24/2025 Discontinued (Reorder)Start: 63-61-3597Scmapdx Degludec 100 UNIT/ML SOPN Inject 10 Units into the skin nightly 03/21/2025 ActiveStart: 07-18-2024 End: 47-47-0080dnxprg 10 [IU] by subcutaneous injection once dailyinsulin degludec (TRESIBA FLEXTOUCH U-100) 100 unit/mL (3 mL) insulin pen Inject 10 Units under theskin nightly. 15 mL 1 07/18/2024 03/21/2025 Discontinuedinsulin glargine 100 unt/ml injectable solution (4 sources)Insulin AnalogStart: 03-07-2025 End: 69-64-5283Hryaz: 04-15-2023 End: 91-86-1640mgvnquz glargine U-300 conc (TOUJEO MAX U-300 SOLOSTAR) 300 unit/mL (3 mL) insulin pen Inject 60 Units under the skin in the evening. 6 mL 2 04/15/2023 12/23/2023 Discontinued (Cost of medication)Novolin N (1 source)Start: 61-03-0350Wysnudy N See Instructions, Refills(s) 0 Start Date: 01/16/25 Status: Ordered Repeat number: 1Insulin NPH Human, Isophane, (NOVOLIN N SC) (1 source)Insulin NPH Human, Isophane, (NOVOLIN N SC) Inject 60 Units into the skin Daily Activelabetalol hydrochloride 5 mg/ml injectable solution (1 source)beta-Adrenergic BlockerStart: 98-20-5631esrzfieili 40 mg oral tablet (20 sources)Angiotensin Converting Enzyme InhibitorStart: 69-98-0345mudv 1 tablet by mouth in the morninglisinopriL (PRINIVIL,ZESTRIL) 40 mg tablet Take 1 tablet (40 mg total) by mouth in the morning. 90 tablet 1 08/07/2025 Active Start: 55-79-5828gekw 1 tablet by mouth in the morninglisinopriL (PRINIVIL,ZESTRIL) 40 mg tablet TAKE 1 TABLET BY MOUTH IN THE MORNING 90 tablet 3 08/07/2025 ActiveStart: 04-11-2019 End: 41-13-9766crha 1 tablet by mouth in the morninglisinopriL (PRINIVIL,ZESTRIL) 40 mg tablet Take 1 tablet (40 mg total) by mouth in the morning. 90 tablet 1 02/08/2025 08/07/2025 Discontinuedmagnesium oxide 400 mg oral tablet (20 sources)Start: 01-15-2024 End: 78-00-7857wsgpxljfj oxide 400 mg magnesium tablet Magnesium 90 tablet 1 08/20/2024 Activemelatonin 3 mg oral tablet (1 source)Start: 55-25-7029dlnBODLTB hydrochloride 1000 mg oral tablet (20 sources)BiguanideStart: 22-94-7974fktr 1 tablet by mouth in the morning, then take 1 tablet by mouth at mealtimemetFORMIN (GLUCOPHAGE) 1000 mg tablet Take 1 tablet (1,000 mg total) by mouth in the morning and 1 tablet (1,000 mg total) in the evening. Take with meals. 180 tablet 3 08/07/2025 ActiveStart: 74-20-4750qhsw 1 tablet by mouth in the morning, then take 1 tablet by mouth at mealtimemetFORMIN (GLUCOPHAGE) 1000 mg tablet Take 1 tablet (1,000 mg total) by mouth in the morning and 1 tablet (1,000 mg total) in the evening. Take with meals. 180 tablet 3 08/07/2025 ActiveStart: 04-11-2019 End: 24-81-5998ltxz 1 tablet by mouth in the morning, then take 1 tablet by mouth at mealtimemetFORMIN (GLUCOPHAGE) 1000 mg tablet Take 1 tablet (1,000 mg total) by mouth in the morning and 1 tablet (1,000 mg total) in the evening. Take with meals. 180 tablet 3 08/20/2024 08/07/2025 Discontinuedmidodrine hydrochloride 5 mg oral tablet (1 source)alpha-Adrenergic AgonistStart: 71-24-1763qiztzysbtkg (ZOFRAN-ODT) disintegrating tablet 4 mg (1 source)Start: 86-29-8449lhjddypgsnl (ZOFRAN-ODT) disintegrating tablet 4 mg oxybutynin chloride 5 mg oral tablet (1 source)Cholinergic Muscarinic AntagonistStart: 49-44-9999aspcpolujnei 40 mg delayed release oral tablet (20 sources)Proton Pump InhibitorStart: 58-22-7005oijz 1 tablet by mouth in the morning, then take 1 tablet by mouth before mealtimepantoprazole (PROTONIX) 40 mg EC tablet Take 1 tablet (40 mg total) by mouth in the morning and 1 tablet (40 mg total) in the evening. Take before meals. 90 tablet 1 08/07/2025 Active Start: 03-10-2025 End: 50-98-0564xxau 1 tablet by mouth in the morning, then take 1 tablet by mouth before mealtimepantoprazole (PROTONIX) 40 mg EC tablet Take 1 tablet (40 mg total) by mouth in the morning and 1 tablet (40 mg total) in the evening. Take before meals. 03/10/2025 08/07/2025 Discontinued (Reorder)Start: 03-07-2025 take 1 tablet by mouth twice daily before mealtimepantoprazole (PROTONIX) 40 MG tablet Take 1 tablet by mouth 2 times daily (before meals) 30 tablet 3 03/10/2025 Activepolyethylene glycol 3350 28420 mg powder for oral solution (1 source)Osmotic LaxativeStart: 14-35-4458jlyodxQEAG 20 mg oral tablet (3 sources)Start: 05-03-2025 End: 38-80-7728nzgi 1 tablet by mouth in the morning, then take 1 tablet by mouth at bedtimepredniSONE (DELTASONE) 20 mg tablet Take 1 tablet (20 mg total) by mouth in the morning and 1 tablet (20 mg total) before bedtime. Do all this for 5 days. 10 tablet 05/03/2025 05/08/2025 Activerosuvastatin calcium 10 mg oral tablet (20 sources)HMG-CoA Reductase InhibitorStart: 67-31-2453cinw 1 tablet by mouth once daily in the morningrosuvastatin (CRESTOR) 10 mg tablet Take 1 tablet (10 mg total) by mouth every morning. 90 tablet ActiveStart: 08-07-2025 take 1 tablet by mouth once daily in the morningrosuvastatin (CRESTOR) 10 mg tablet TAKE 1 TABLET BY MOUTH EVERY MORNING 90 tablet 3 08/07/2025 ActiveStart: 68-19-9592temj 10 mg by mouth once daily10 mg, Oral, NIGHTLY, First dose on Tue04/11/25 at 2100, Until DiscontinuedStart: 04-11-2019 End: 64-19-4834pzrk 1 tablet by mouth once daily in the morningrosuvastatin (CRESTOR) 10 mg tablet Take 1 tablet (10 mg total) by mouth every morning. 90 tablet 08/07/2025 Xtscuciqkjoo54 ml sodium chloride 9 mg/ml injection (8 sources)Start: 55-79-5558Ouevs: -40 mL, IntraVENous, EVERY 12 HOURS SCHEDULED (2 times per day), First dose on Tue04/10/25 at 2230,Until Discontinued, For Line Patency: Peripheral IV = [...] Midline or Central Line = 20 mL/lumen, Post-opStart: 15-59-1859Qczvm: 03-03-2025 Start: 03-03-2025 End: 10-88-7126tboxmnvzjam (JOURNAVX) 50 mg tablet (14 sources)Start: 25-77-5667vtwk 1 tablet by mouth oncesuzetrigine (JOURNAVX) 50 mg tablet Indications: Degeneration of intervertebral disc of lumbar region with discogenic back pain Take 1 tablet (50 mg total) by mouth every 12 (twelve) hours. 30 tablet1 07/17/2025 ActiveStart: 27-12-9252suhc 1 tablet by mouth every twelve hourssuzetrigine (JOURNAVX) 50 mg tablet Take 1 tablet (50 mg total) by mouth every 12 (twelve) hours. 5tablet 07/17/2025 Activetamsulosin hydrochloride 0.4 mg oral capsule (1 source)alpha-Adrenergic BlockerStart: 52-66-4126rjgd 1 capsule by mouth once daily as needed for paintraMADol hydrochloride 50 mg oral tablet (2 sources)Opioid AgonistStart: 08-16-2024 End: 24-58-1389jtws 1 tablet by mouth every eight hours as needed for pain traMADoL (ULTRAM) 50 mg tablet Indications: Lumbar back pain Take 1 tablet (50 mg total) by mouth every 8 (eight) hours as needed for pain for up to 7 days. 21 tablet 08/16/2024 08/23/2024 ActiveVit C-E-Zinc Uoe-Zcijlg-Mnkkjr ([facility]) 50 mg-15 unit- 4.5 mg-2.5 mg Tablet,Chewable (12 sources)Start: 88-40-7790uubm 1 tablet by mouth once dailyVit C-E-Zinc Rme-Pmflxc-Jjxvij ([facility]) 50 mg-15 unit- 4.5 mg-2.5 mg Tablet,Chewable Active 1 TAB PO Daily April 11, 2019 8:39amStart: 04-11-2019 End: 27-96-3809lzvf 1 tablet by mouth once dailyVit C-E-Zinc Rbx-Qsrmkb-Ybgjzz ([facility]) 50 mg-15 unit- 4.5 mg-2.5 mg Tablet,Chewable Discontinued 1 TAB PO Daily April 11, 2019 12:00am July 16, 2025 10:54amStart: 47-52-9322pwrl 1 tablet by mouth once dailyStart: 39-02-3134luzm 1 tablet by mouth once dailyVit C-E-Zinc Dci-Rcqaia-Ykkwhw ([facility]) 50 mg-15 unit- 4.5 mg-2.5 mg Tablet,Chewable Active 1 TAB PO Daily April 10, 2019 11:00pm Start: 93-89-2541ujde 1 tablet by mouth once dailyVit C-E-Zinc Lco-Mkuogv-Grakjb ([facility]) 50 mg-15 unit- 4.5 mg-2.5 mg Tablet,Chewable Active 1 TAB PO Daily April 11, 2019 12:00am (1 source) (8 sources)Start: 18-01-4151Hdzug: 03-04-2025[Order 1 Start] Name: potassium chloride (KLOR-CON M) extended release tablet 40 mEq Signed Summary: 40 mEq, Oral, PRN, Starting on Tue03/04/25 at 1649, Until Discontinued, Potassium Replacement, Maygive alternative linked oral order (ordered as effervescent, packet, or liquid solution) if patientunable to tolerate tablet. K Lab Replacement Action [...] Administer as alternative if patient unable to tolerateoral tablet. K Lab Replacement Action 3.1 to [...] [Order 2 End] [Order 3 Start] Name: potassiumchloride 10 mEq/100 mL IVPB (Peripheral Line) Signed Summary: 10 mEq, IntraVENous, PRN, Starting onTue03/04/25 at 1649, Until Discontinued, at 100 mL/hr, [...] CrCl less than 30 mL/min. [Order 3 End]Start: 03-04-2025 End: 54-68-8629Gfhaw: 03-03-2025[Order 1 Start] Name: dextrose bolus 10% 125 mL Signed [...] provider. [Order 1 End] [Order 2 Start] N clarissa: dextrose bolus 10% 250 mL Signed Summary: 250 mL, IntraVENous, at 937.5 mL/hr, Administer over16 Minutes, PRN, Other, Blood glucose LESS THAN 40 mg/dL and patient NOT ALERT or NPO, Starting on 03/03/25 at 1456, Repeat blood glucose in 15 minutes. If blood glucose remains LESS THAN 70 mg/dL, repeat treatment and recheck blood glucose in 15 minutes x 2. If using glycemic management system,dose as instructed per system. If blood glucose remains LESS THAN 70 mg/dL after 2 intravenous boluses start dextrose 10% at 100 mL/hour and notify provider. [Order 2 End]Start: 03-03-2025 End: 67-24-3217Bqcnd: 03-03-2025 End: 18-31-9307Kywsa: 03-03-2025[Order 1 Start] Name: acetaminophen (TYLENOL) tablet 650 mg Signed [...] Rectal, EVERY 6 HOURS PRN, Starting on 03/03/25at 1148, Until Discontinued, Pain Mild (1-3), allowed for higher pain score per patient request, Fever, For temp greater than 100.4 F (38 C), Administer if oral route cannot be used. [Order 2 End]Start: 03-03-2025[Order 1 Start] Name: ondansetron (ZOFRAN-ODT) disintegrating tablet 4 mg Signed Summary: 4 mg, Oral, EVERY 8 HOURS PRN, Starting on Tue03/03/25 at 1148, Until Discontinued, Nausea, Vomiting [Order 1End] [Order 2 Start] Name: ondansetron (ZOFRAN) injection 4 mg Signed Summary: 4 mg, IntraVENous, EVERY 6 HOURS PRN, Starting on Tue03/03/25 at 1148, Until Discontinued, Nausea, Vomiting, Administer if oral route cannot be used. [Order 2 End] (1 source)Start: 03-03-2025 Completed/Discontinued Medications MedicationDrug Class(es)DatesSig (Normalized)Sig (Original)acetaminophen 500 mg oral tablet (1 source)Start: 61-35-0954ittl 1 dose by mouth three times daily, then take 4000 mg by mouth every twenty-four hours1,000 mg, Oral, EVERY 8 HOURS SCHEDULED (3 times per day), First dose on Tue04/10/25 at 2315, Until Discontinued, Maximum dose of acetaminophen is 4000 mg from all sources in 24 hours.alendronic acid 35 mg oral tablet (20 sources)BisphosphonateStart: 04-11-2019 End: 33-28-1361vegx 1 tablet by mouth every weekAlendronate 35 mg tablet Discontinued 35 MG PO every week April 11, 2019 12:00am December 15, 2023 11:19amamLODIPine 5 mg oral tablet (20 sources)Dihydropyridine Calcium Channel BlockerStart: 04-11-2019 End: 14-78-9625njmw 1 tablet by mouth once dailyAmlodipine 5 mg tablet Discontinued 5 MG PO Daily April 11, 2019 12:00am December 15, 2023 11:19am amoxicillin 500 mg oral capsule (12 sources)Penicillin-class AntibacterialStart: 04-11-2019 End: 39-71-7886wnml 1 capsule by mouth three times dailyAmoxicillin 500 mg capsule Discontinued 500 MG PO Three times daily April 11, 2019 12:00am April 13, 2019 11:01amaspirin 81 mg chewable tablet (20 sources)Platelet Aggregation Inhibitor, Nonsteroidal Anti-inflammatory Drug Start: 08-15-0567jpsf 81 mg by mouth once daily81 mg, Oral, DAILY, First dose on Tue04/11/25 at 0900, Until DiscontinuedStart: 09-23-7696ydfr 81 mg by mouth once dailyaspirin 81 mg, Oral, Daily, Refills(s) 0 Start Date: 01/16/25 Status: Ordered Repeat number: 1Start: 14-47-9856yqob 1 tablet by mouth once daily Aspirin 81 mg Tablet,Delayed Release (Dr/Ec) Active 81 MG PO Daily October 01, 2020 1:00am Complies with drug therapyStart: 04-11-2019 End: 41-89-9352nqoi 1 tablet by mouth once dailyAspirin 81 mg Tablet,Delayed Release (Dr/Ec) Discontinued 81 MG PO Daily April 11, 2019 12:00am April 13, 2019 1:11pmbaclofen 10 mg oral tablet (1 source)gamma-Aminobutyric Acid-ergic AgonistStart: 04-15-2023 End: 06-60-9815cmfp 1 tablet by mouth three times daily as needed for muscle spasmsbaclofen (LIORESAL) 10 mg tablet Indications: Strain of left buttock, initial encounter Take 1 tablet (10 mg total) by mouth 3 (three) times a day as needed for muscle spasms. 60 tablet 0 04/15/2023 12/23/2023 Discontinued (Therapy completed)calcium chloride 0.0014 meq/ml / potassium chloride 0.004 meq/ml / sodium chloride 0.103 meq/ml / sodium lactate 0.028 meq/ml injectable solution (4 sources)Start: 04-10-2025 End: 64-56-3187UfzouJGTzud, at 75 mL/hr, CONTINUOUS, Starting on Tue04/10/25 at 2230, Post-opStart: 03-03-2025 End: ml calcium gluconate 20 mg/ml injection (1 source)Start: 04-10-2025 End: ,000 mg, IntraVENous, at 50 mL/hr, Administer over 120 Minutes, ONCE, On Tue04/10/25 at 2330, For 1doseceFAZolin (ANCEF) 2000 mg in sterile water 20 mL IV syringe (1 source)Start: 04-11-2025 End: ,000 mg, IntraVENous, EVERY 8 HOURS, First dose on Kirti 04/11/25 at 0130, For 24 hours, Administer over 5 mins., Post-opdapagliflozin 5 mg oral tablet (12 sources)Sodium-Glucose Cotransporter 2 InhibitorStart: 03-31-2022 End: 05-28-2327itpw 1 tablet by mouth once dailyDapagliflozin Propanediol (Farxiga) 5 mg Tablet Discontinued 5 MG PO Daily March 31, 2022 12:00am April 13, 2023 9:17amempagliflozin 25 mg oral tablet (12 sources)Sodium-Glucose Cotransporter 2 InhibitorStart: 10-01-2020 End: 14-13-2163ycxo 1 tablet by mouth once dailyEmpagliflozin (Jardiance) 25 mg Tablet Discontinued 25 MG PO Daily October 01, 2020 1:00am March 31, 2022 1:23pm0.4 ml enoxaparin sodium 100 mg/ml prefilled syringe (2 sources)Low Molecular Weight HeparinStart: 24-10-5587wtzxat 40 mg by subcutaneous injection once daily40 mg, SubCUTAneous, DAILY, First dose on Kirti 04/11/25 at 0900, Until Discontinued, Indication of Use: Prophylaxis-DVT/PE, Administer by deep subCUTAneous injection with pt lying down. Alternate injecti on sites on abdominal wall. Do not rub site after injection. Check with provider prior to any invasive procedure., Post-opStart: ml fentaNYL 0.05 mg/ml injection (1 source)Opioid AgonistStart: 03-04-2025 End: 46-78-9479vezxjbjhwf 20 mg oral tablet (20 sources)Loop DiureticStart: 05-03-2025 End: 77-49-6705wkrczmhsaf (LASIX) 20 mg tablet Lasix 20mg nightly for 5 days. Should continue the 40mg in am. 5 tablet 05/03/2025 05/14/2025 Discontinued (Therapy completed)Start: 36-32-0222ppwv 20 mg by mouth once daily20 mg, Oral, DAILY, First dose (after last modification) on [facility] 04/13/25 at 0900, Until DiscontinuedStart: 12-84-8794Ilqzl: 30-05-6186Bfbrv: 12-16-2023 End: 38-20-8733vouk 1 tablet by mouth once dailyfurosemide (LASIX) 20 mg tablet take 1 tablet by mouth once daily 12/16/2023 07/16/2024 Discontinued (Discontinued by another clinician)Start: 01-11-2022 End: 31-03-1526atbd 1 tablet by mouth once dailyfurosemide (LASIX) 40 mg tablet Take 1 tablet (40 mg total) by mouth daily. 08/20/2024 ActiveStart: 12-30-2021 End: 81-80-6094hkmx 1 tablet by mouth once dailyFurosemide (Lasix) 20 mg Tablet Discontinued 20 MG PO Daily December 30, 2021 1:00am January 11, 2022 2:27pm take 2 tablets by mouth once dailyfurosemide (LASIX) 20 MG tablet Take 2 tablets by mouth daily ActivehydroCHLOROthiazide 25 mg oral tablet (12 sources)Thiazide DiureticStart: 04-11-2019 End: 71-12-0288nnmi 1 tablet by mouth once dailyHydrochlorothiazide 25 mg tablet Discontinued 25 MG PO Daily April 11, 2019 12:00am April 13, 2023 9:18am1 ml HYDROmorphone hydrochloride 1 mg/ml cartridge (8 sources)Opioid AgonistStart: 04-10-2025 End: .5 mg, IntraVENous, EVERY 5 MIN PRN, 4 doses, Starting on Tue04/10/25 at 2045, Until Tue04/10/25 at 2204, Pain Severe (7-10), Phase I - Initial therapy for severe pain., PACU onlyStart: 04-10-2025 End: .25 mg, IntraVENous, EVERY 5 MIN PRN, 4 doses, Starting on Tue04/10/25 at 2045, Until Tue04/10/25 [id number], Pain Moderate (4-6), allowed for higher pain score per patient request, Phase I - Initial therapy for moderate pain., PACU onlyStart: 16-37-5638Dyvym: 03-04-2025 End: 14-90-5311Bsetu: 03-04-2025 End: 01-66-8634Xaefm: 03-03-2025 End: ml insulin detemir 100 unt/ml pen injector (12 sources)Insulin AnalogStart: 04-11-2019 End: 76-27-9338rzfmuj 70 [IU] by subcutaneous injection once daily at bedtime Insulin Detemir U-100 100 unit/mL (3 mL) insulin pen Discontinued 70 UNITS SUBCUT Daily at bedtime April 11, 2019 12:00am March 31, 2022 1:23pminsulin lispro 100 unt/ml injectable solution (4 sources)Insulin AnalogStart: -16 Units, SubCUTAneous, 4 TIMES DAILY BEFORE MEALS & NIGHTLY, First dose on Tue04/10/25 at 2230, Until Discontinued, High Dose Corrective Algorithm Glucose: Dose: 70-179 No Insulin 180-249 4Units 250-299 8 Units 300-349 12 Units Over 349 16 Units and notify physician Administer as soon aspossible within 60 minutes of last blood glucose check, Post-opStart: 03-03-2025 End: ml ketorolac tromethamine 30 mg/ml injection (2 sources)Nonsteroidal Anti-inflammatory Drug, Cyclooxygenase InhibitorStart: 08-16-2024 End: 58-17-816338 mg, intramuscular, Once, On Tue08/16/24 at 1600, For 1 dose, Look-alike/sound-alike medication - verify indication for use. Duration of therapy is not to exceed 5 days. Maximum recommended dose +120mg/24 hours.Start: 08-16-2024 End: 97-96-0368yzsqlzzsh (TORADOL) injection 15 mg50 ml magnesium sulfate 40 mg/ml injection (3 sources)Start: 04-11-2025 End: ,000 mg, IntraVENous, at 25 mL/hr, Administer over 2 Hours, ONCE, On Tue04/11/25 at 0000, For 1 dose, Recommended infusion rate not to exceed 1,000 mg (milligrams) per hour.Start: 03-10-2025 End: 87-48-0882Vkibx: 76-62-8346uojahzdey sulfate Refills(s) 0 Start Date: 01/16/25 Status: Ordered Repeat number: 1meloxicam 7.5 mg oral tablet (12 sources)Nonsteroidal Anti-inflammatory DrugStart: 03-23-2021 End: 62-63-3894Qvcpxcddt 7.5 mg Tablet Discontinued 7.5 PO Daily as needed for Pain March 23, 2021 12:00am July 01, 2022 10:30ammethocarbamol 500 mg oral tablet (4 sources)Muscle RelaxantStart: 04-13-2025 End: 41-34-7763xrbo 1 tablet by mouth three times dailymethocarbamoL (ROBAXIN) 500 mg tablet Take 1 tablet (500 mg total) by mouth 3 (three) times a day. 0 04/13/2025 04/23/2025 ExpiredStart: 04-10-2025 End: 13-71-8455ozjy 750 mg by mouth four times wboks694 mg, Oral, 4 TIMES DAILY, First dose on Tue04/10/25 at 2315, Until Discontinued2 ml midazolam 1 mg/ml injection (1 source)BenzodiazepineStart: 03-04-2025 End: 41-55-6510Pjvmkzas Vitamins-Minerals (PRESERVISION AREDS PO) (1 source) End: 08-27-6675mmko 1 capsule by mouth once dailyMultiple Vitamins-Minerals (PRESERVISION AREDS PO) Take 1 capsule by mouth daily 04/08/2025 Discontinued (Therapy completed)oxyCODONE hydrochloride 5 mg oral tablet (4 sources)Opioid AgonistStart: 04-13-2025 End: 20-87-2005sgtw 1 tablet by mouth every four hours as needed for pain oxyCODONE (ROXICODONE) 5 mg immediate release tablet Take 1 tablet (5 mg total) by mouth every 4 (four) hours as needed for pain. 04/13/2025 04/18/2025 Start: 95-36-9024qllMCCUNI (ROXICODONE) immediate release tablet 5 mgStart: 04-10-2025 End: 67-94-5735bzrf 5 mg by mouth every six hours as needed for pain5 mg, Oral, EVERY 6 HOURS PRN, Starting on Tue04/10/25 at 2246, Until Kirti 04/11/25 at 0446, Pain Severe (7-10)microencapsulated potassium chloride 20 meq extended release oral tablet (20 sources)Start: 03-10-2025 End: 90-05-3268Lhirk: 03-03-2025 End: 67-43-7932Veivf: 04-11-2019 End: 33-70-3438doag 1 tablet by mouth once dailyPotassium Chloride 20 mEq tablet extended release Discontinued 20 MEQ PO Daily April 11, 2019 12:00am December 26, 2024 2:03pmspironolactone 25 mg oral tablet (20 sources)Aldosterone AntagonistStart: 12-30-2021 End: 22-55-7013bmle 1 tablet by mouth once dailySpironolactone 25 mg Tablet Discontinued 25 MG PO Daily December 30, 2021 1:00am July 16, 2025 10:53amtiZANidine 2 mg oral tablet (9 sources)Central alpha-2 Adrenergic AgonistStart: 08-16-2024 End: 06-35-6825fkbe 1 tablet by mouth every eight hours as needed for muscle spasmstiZANidine (ZANAFLEX) 2 mg tablet Indications: Lumbar paraspinal muscle spasm Take 1 tablet (2 mg total) by mouth every 8 (eight) hours as needed for muscle spasms. 20 tablet 08/16/2024 03/21/2025 Discontinued (Therapy completed) (2 sources)Start: 03-05-2025 End: 72-93-1053Vcpvi: 03-04-2025 End: 03-04-2025 (1 source)Start: 03-04-2025 End: 03-07-2025 (1 source)Start: 03-04-2025 End: 03-07-2025 (1 source)Start: 03-04-2025 End: 03-04-2025 Problems Active Problems Problem ClassificationProblemDateDocumented DateEpisodic/ChronicAcute and unspecified renal failure (3 sources)Acute renal failure syndrome; Translations: [Acute kidney failure, unspecified]Onset: 323217-10-8744QqkinnzxDfugvzbc of urinary tract (2 sources)History of calculus of kidney; Translations: [Personal history of urinary calculi]Onset: 50-27-4931FjgusyzpWwenhfc dysrhythmias (2 sources)Irregular heart beat; Translations: [Cardiac arrhythmia, unspecified] Onset: 765887-82-4664PogngffTxeyxcp kidney disease (2 sources)Chronic kidney disease, stage 2 (mild); Translations: [CHRONIC KIDNEY DISEASE STAGE 2 MILD]Onset: 84-82-3479CqjsjxiVaiklkc kidney disease (2 sources)Chronic kidney disease; Translations: [Chronic kidney disease, stage 3a]Onset: 39-12-0512Gngw; stupor; and brain damage (1 source)Daytime jxhydknsru96-08-9784BlbfdgumDmiwwbsteu heart failure; nonhypertensive (4 sources)Acute on chronic diastolic (congestive) heart failure; Translations: [Chronic diastolic (congestive) heart failure]Onset: 59-69-2421FmgdfpbWaozfomr mellitus with complications (20 sources)Type 2 diabetes mellitus with diabetic chronic kidney disease; Translations: [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 3 due to type 2 diabetes mellitus]Onset: 88-36-2979EsbwcusWqlmwsuv mellitus without complication (20 sources)Diabetes mellitus; Translations: [Type 2 diabetes mellitus without complications]Onset: 433082-13-4009IdmzuuzYsmxoulbs of lipid metabolism (20 sources)Mixed hyperlipidemia; Translations: [Mixed hyperlipidemia]Onset: 22-71-1522KbzcprkUqzmkbtzv hypertension (20 sources)Essential (primary) hypertension; Translations: [Essential hypertension]Onset: 769057-93-8208MkfkiotSspdzfez of upper limb (1 source)Fracture of upper buen02-37-2153DitdhqocPwkakstwtlgmw symptoms and ill-defined conditions (2 sources)Nocturia; Translations: [Nocturia]Onset: 303978-63-1146Onewbdkp Gout and other crystal arthropathies (4 sources)Gout, unspecified; Translations: [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] Onset: 762864-83-6094UbqqxolCptypnpnydvi with complications and secondary hypertension (20 sources)Hypertensive chronic kidney disease with stage 1 through stage 4 chronic kidney disease, or unspecified chronic kidney disease; Translations: [Chronic kidney disease stage 2]Onset: 02-16-2022 Resolved: 400357-83-2524BzclkprQzpccdbizdp chemotherapy; radiotherapy (20 sources)Patient encounter status; Translations: [Encounter for antineoplastic immunotherapy]38-54-0891AkcnlljNoibqsh and fatigue (2 sources)Physical deconditioning; Translations: [Other malaise]04-24-2025 EpisodicMelanomas of skin (20 sources)Malignant melanoma of upper arm; Translations: [Malignant melanoma] Onset: 952714-65-0023IncxkduVzipynujdzrrfz (20 sources)Osteoarthritis of left knee joint; Translations: [Unilateral primary osteoarthritis, left knee]Onset: 343553-91-5763FwufurwOntyfubucaml (1 source)Rremcpuvnomn86-64-9220OdpfnvvIgapf and ill-defined heart disease (1 source)Heart disease, unspecified; Translations: [HEART DISEASE UNSPECIFIED] Onset: 44-09-7183YtzwdoxGqdlr circulatory disease (1 source)H/O: hypertension; Translations: [History of hypertension]Episodic Other connective tissue disease (1 source)Presence of left artificial knee joint; Translations: [Presence of left artificial knee joint]Onset: 89-51-4032MifmtetQctyk connective tissue disease (20 sources)History of total knee arthroplasty; Translations: [Presence of left artificial knee joint]Onset: 063341-17-2361MzbabyoBbdsx connective tissue disease (1 source)H/O: arthritis; Translations: [History of arthritis]EpisodicOther connective tissue disease (1 source)H/O: gout; Translations: [History of gout]EpisodicOther connective tissue disease (1 source)History of osteoporosis; Translations: [History of osteoporosis] EpisodicOther diseases of kidney and ureters (1 source)Hydronephrosis; Translations: [Unspecified hydronephrosis]Onset: 53-13-0064CvapwyrbXmfbw diseases of kidney and ureters (1 source)Parqcjhhcisgaosnzelof90-41-7930ZhilfuizConma diseases of kidney and ureters (1 source)Unspecified hydronephrosis; Translations: [Unspecified hydronephrosis] Onset: 25-25-2535JaizjhwgOkagu endocrine disorders (12 sources)Other disorders of pituitary gland; Translations: [Other disorders of the pituitary and other syndromes of diencephalohypophyseal origin]Chronic Other gastrointestinal disorders (20 sources)Irritable bowel syndrome; Translations: [Irritable bowel syndrome without diarrhea]Onset: 153642-20-3728IaxddwlDxahw gastrointestinal disorders (1 source)Diarrhea; Translations: [Diarrhea, unspecified]00-95-1563PymyaktsWegcq liver diseases (20 sources)Fatty (change of) liver, not elsewhere classified; Translations: [Other chronic nonalcoholic liver disease]Onset: hronic Other lower respiratory disease (1 source)Radiologic infiltrate of lung ; Translations: [Other nonspecific abnormal finding of lung field]Onset: 283871-88-4835HdnememaDyqmm non- traumatic joint disorders (3 sources)Pain in left knee; Translations: [Pain in joint, lower leg]12-14-2023 EpisodicOther non-traumatic joint disorders (3 sources)Stiffness of left knee; Translations: [Stiffness of left knee, not elsewhere classified]50-43-6217TjqbvhpfFhpgw nutritional; endocrine; and metabolic disorders (20 sources)Metabolic syndrome X; Translations: [Metabolic syndrome X]Onset: 823594-10-5787ByjqmplCnilh nutritional; endocrine; and metabolic disorders (20 sources)Morbid obesity; Translations: [Morbid (severe) obesity due to excess calories]Onset: 858647-53-2756LdsihprHgsub nutritional; endocrine; and metabolic disorders (2 sources)Severe obesity; Translations: [Class 3 severe obesity due to excess calories with serious comorbidity and body mass index (BMI) of 40.0 to 44.9 in adult ([facility] [place])]94-21-9072CxkkpznHgeme nutritional; endocrine; and metabolic disorders (1 source)Body mass index (BMI) 40.0-44.9, adult; Translations: [Body mass index (BMI) 40.0-44.9, adult]Onset: 58-12-7171QdmazpaEtwcw nutritional; endocrine; and metabolic disorders (1 source)Morbid (severe) obesity due to excess calories; Translations: [Morbid (severe) obesity due to excess calories]Onset: 94-85-1629DhuwyguFzllj nutritional; endocrine; and metabolic disorders (1 source)H/O: diabetes mellitus; Translations: [History of diabetes mellitus] EpisodicOther nutritional; endocrine; and metabolic disorders (1 source)History of hypercholesterolemia; Translations: [History of hypercholesterolemia]EpisodicOther screening for suspected conditions (not mental disorders or infectious disease) (8 sources)Raised cardiac enzyme or marker; Translations: [Other specified abnormal findings of blood chemistry]Onset: 698431-15-6755AuagcznzKbbcb screening for suspected conditions (not mental disorders or infectious disease) (1 source)No current problems or disabilityOnset: 08-22-0032Psfeh skin disorders (2 sources)Localized swelling of left foot; Translations: [Localized swelling, mass and lump, left lower limb]02-82-8725XcozdqdhShdzv skin disorders (1 source)Localized swelling, mass and lump, left lower limb; Translations: [Localized swelling, mass and lump, left lower limb]Onset: 68-07-7850Iasygsnl Pleurisy; pneumothorax; pulmonary collapse (1 source)Atelectasis; Translations: [Atelectasis]Onset: 273126-70-2189 EpisodicResidual codes; unclassified (4 sources)Obstructive sleep apnea syndrome; Translations: [Obstructive sleep apnea (adult) (pediatric)]Onset: 268212-16-7826SeswrwpWuaosvun codes; unclassified (5 sources)Hypersomnia; Translations: [Hypersomnia, unspecified]04-24-2025 ChronicResidual codes; unclassified (3 sources)Daytime somnolence; Translations: [Other hypersomnia]04-29-2025 ChronicResidual codes; unclassified (2 sources)Hypersomnia, unspecified; Translations: [Hypersomnia, unspecified] Onset: 33-38-9758BlyxpqrLxtwwefi codes; unclassified (1 source)Other hypersomnia; Translations: [Other hypersomnia]Onset: 05-07-2025 ChronicResidual codes; unclassified (1 source)Obstructive sleep apnea (adult) (pediatric); Translations: [Obstructive sleep apnea (adult) (pediatric)]Onset: 03-67-7757RjzoshbWppcmusw codes; unclassified (1 source)Acquired absence of other specified parts of digestive tract; Translations: [Acquired absence of other specified parts of digestive tract] Onset: 22-80-2659RbhugkwaKfbqalcyk and history of mental health and substance abuse codes (3 sources)Patient encounter status; Translations: [Encounter for screening for depression]03-46-7343MqamjdeiIuvasteyim (except in labor) (3 sources)Sepsis; Translations: [Sepsis, unspecified organism]Onset: 03-09-2025 28-18-0871KtrsmctnObml and subcutaneous tissue infections (1 source)Pilonidal lijl48-10-2528LqlbgwwaZwpiorydelx; intervertebral disc disorders; other back problems (20 sources)Degeneration of thoracic intervertebral disc; Translations: [Other intervertebral disc degeneration, thoracic region]Onset: ChronicUnclassified (1 source)Other intervertebral disc degeneration, lumbar region with discogenic back pain only; Translations:[Other intervertebral disc degeneration, lumbar region with discogenic back pain only]Onset: 94-39-9742Pxvqmtcagwza (1 source)Obesity, class 3; Translations: [Obesity, class 3]Onset: 06-17-2025 Unclassified (1 source)Other post infection and related fatigue syndromes; Translations: [Other post infection and relatedfatigue syndromes]Onset: 83-78-1107Fsvruoehshlg (1 source)Low back pain, unspecified; Translations: [Low back pain, unspecified] Onset: 27-13-1596Azhaglsdddci (1 source)sciatica right sideOnset: 30-51-8415Wmpszvjzzguk (2 sources)Office to call for cystoscopy, stent removal in 2 weeks Past or Other Problems Problem ClassificationProblemDateDocumented DateEpisodic/ChronicBiliary tract disease (15 sources)Acute cholecystitis; Translations: [Acute cholecystitis]Onset: 210727-28-1740UhgxegnrWyxtvwmnulbfo of surgical procedures or medical care (20 sources)Dehiscence of surgical wound; Translations: [Disruption of external operation (surgical) wound, notelsewhere classified, initial encounter]Onset: 601688-87-8653OqjfgglzWvrxo and electrolyte disorders (20 sources)Hypokalemia; Translations: [Hypokalemia]Onset: 02-03-2017 Resolved: 783697-09-6084RrawofyvIcumoovrfszcw and screening for infectious disease (2 sources)Needs influenza immunization; Translations: [Encounter for immunization]Onset: 116439-10-9649QojxsghbDdra disorders (20 sources)Mood disordersOnset: 03-20-2024 Resolved: Other aftercare (3 sources)senior care (current) use of insulin; Translations: [[employer] HELPER CURRENT USE OF INSULIN]Onset: 84-85-8049XgnodjfsWvhxi and ill-defined heart disease (20 sources)Diastolic dysfunction; Translations: [Other ill-defined heart diseases]Onset: 12-02-2021 Resolved: 162386-34-2962KofyitiAiwcv endocrine disorders (20 sources)Pituitary gland enlarged; Translations: [Other disorders of pituitary gland]Onset: 12-30-2023 Resolved: 770326-93-0624YjlqxptNodju gastrointestinal disorders (4 sources)Diarrhea, unspecified; Translations: [DIARRHEA UNSPECIFIED]Onset: 72-12-9525XulyergfXbtqt lower respiratory disease (4 sources)Dyspnea, unspecified; Translations: [DYSPNEA UNSPECIFIED]Onset: 60-92-4082GuxwxhkpSzcjw lower respiratory disease (20 sources)Dyspnea on exertion; Translations: [Other forms of dyspnea]Onset: 12-25-2021 Resolved: 748391-89-6727CamsxydhOouai lower respiratory disease (2 sources)Other forms of dyspnea; Translations: [Other forms of dyspnea]Onset: 22-62-5215VhpdultdLfkan non-traumatic joint disorders (20 sources)Pain in wrist; Translations: [Pain in unspecified wrist]Onset: 09-06-2022 Resolved: 116925-58-1126IpyzngnwPyxoeanaxs disorders (not diabetes) (20 sources)Pancreatitis; Translations: [Acute pancreatitis without necrosis or infection, unspecified]Onset: 08-05-2022 Resolved: 878427-07-7070PtallczvSizmrftp codes; unclassified (2 sources)Edema, unspecified; Translations: [Edema, unspecified]Onset: 17-39-1962LvwpjmetEsbwx and face fractures (20 sources)Fracture of orbital floor; Translations: [Fracture of orbital floor, unspecified side, initial encounter for closed fracture]Onset: 04-03-2019 Resolved: 938972-62-4137XcxjfhbeTeulwidgdda; intervertebral disc disorders; other back problems (3 sources)Spasm of muscle of lower back; Translations: [Muscle spasm of back] Onset: 669390-72-0157LqjdnvikEacolswobuya (20 sources)Onset: 08-20-2024 Resolved: Results Test NameValueInterpretationReference RangeFacilityOrders Onlyon 08-29-2025 Orders [id number] Tosha Mcneal Ilan 1950 F Date Provider Department Center 08/29/2025 928-HERRERA STOVER Family History Problem Relation Age of Onset Coronary artery disease Father Heart attack Father Family Status - Relation Status Age at Mother Father Sister [facility]No[facility]UPremier [facility] 08-23-2025 Orders [id number] Tosha Mcneal Ilan 1950 F Date Provider Department Center 08/23/2025 [id number], RAKEL ALFREDO CARD [facility] Family History Problem Relation Age of Onset Coronary artery disease Father Heart attack Father Family Status - Relation Status Age at Mother Father Sister [facility]iveNoSal[facility] CenterInpatient Patient Summaryon 35-86-2275Obgbwbhja Patient SummaryInpatient Patient Summary [place] [address] Clinical Summary Person Information Name: TOSHA MCNEAL Age: 74 Years : 1950 Sex: Female PCP: IWLD CENTENO DO Marital Status: Race: White Ethnicity: Non- or Language: Fijian Visit Id: Visit Reason: RIGHT HYDROURETERONEPHROSIS Speciality: Acuity: Enc Type: Outpatient Med Service: Surgery Arrival: 08/12/2025 09:27:55 Discharge: Dispo Type: Address: [address] [place] [phone] Provider Notes: Diagnosis: Encounter for removal of [...] Follow up: With: Address: When: Shavon Mustafa [address] [place] [phone] Business (1) Comments: Office will call with results to renal US in 6-8 weeks. Patient Education Information: EU - Cystoscopy with Stent Removal [facility] 14-53-1515Zjwo OR Intraoperative RecordMain OR Intraoperative Record IntraOp Document Type FTURO Summary Primary Physician: Shavon Mustafa MD Finalized Date/Time: 08/12/25 10:33:29 Pt. Name: TOSHA MCNEAL/Sex: 1950 Female Med Rec #: [id number] Physician: Shavon Mustafa MD Financial #: [id number] Pt. Type: O Room/Bed: / Admit/Disch: 08/12/25 09:27:55 - Institution: Case Times FTURO Entry 1 Patient Times In Room 08/12/25 10:21:00 Out Room 08/12/25 10:33:00 Procedure Times Start 08/12/25 10:27:00 Stop 08/12/25 10:29:00 Anesthesia Times Last Modified By: Darci Sequeira 08/12/25 10:33:25 Case Attendance FTURO Entry 1 Entry 2 Entry 3 Case Attendee Shavon Mustafa MD, Terry T Ott RN, Yesy E Role Performed Surgeon - Primary Wet Mix Operator - Primary Wet Mix Operator - Primary Time In 08/12/25 10:27:00 08/12/25 [...] STENT REMOVAL Primary Procedure Yes Primary Surgeon Shavon Mustafa MD Start 08/12/25 10:27:00 Stop 08/12/25 10:29:00 Anesthesia [...] PERINEUM Prep Agents Hibiclens Skin. Condition Intact, [place], Warm, & Dry Additional None Specimens Collected [...] Case Comments Finalized By (more content not included)...[facility] Operative Reporton [id number] ReportOperative Report Patient: TOSHA MCNEAL Age: 74 years Sex: Female : 1950 Associated Diagnoses: None Author: Shavon Mustafa MD Procedure Operative Information Details: Date/ Time: 08/12/2025 10:33:00. Pre-Op Dx: Encounter for removal of ureteral stent (UXQ41-TN Z46.6, Discharge, Medical), Hydronephrosis due to ureteral stricture (AXR83-OI N13.1, Discharge, Medical). Post-Op Dx: Same. Anesthesia [...] viewed in entirety and found to be withouttumors or stones, The stent was then grasped and removed in its entirety. Specimens Removed: None. Devices Implanted: None. Postoperative Information Discharge: The patient tolerated the procedure well and was subsequently discharged home, Obtain renal ultrasound 6-8 weeks to reevaluate hydronephrosis, call with results. If persistent, but patientremains asymptomatic with preserved renal function, recommend renal ultrasound in 6 months with follow-up appointment..[facility] HospitalComment on above:Result Comment: Electronically Signed By: Shavon Mustafa MD\.br\Date and Time Signed: 08/12/25 10:35EDTOutpatient Surgery Discharge Instructionon [id number] Surgery Discharge InstructionOutpatient Surgery Discharge Instruction [place] [id number] Patient Discharge Instructions PERSON INFORMATION Name: TOSHA [...] Follow up: With: Address: When: Shavon Mustafa [address] [place], [place] [phone] [facility] (1) Comments: Office will call with results [...] when discharge instructions were given Patient Signature Date Clinican/Nurse Signature Date You may receive a survey from [employer] asking you to rate your care experience. Your feedback is important and will help us understand what we do well and how we can improve the quality of care we provide to you, your loved ones and our community. It???s an honor to serve you. Thank you [facility] choosing [facility] HospitalCapillary blood glucose measurement by glucometer (mass/volume) Ordered By: Shavon Mustafa on 68-27-3528Hmqskzs [Mass/Vol]158 mg/dLJ.W. Ruby Memorial HospitalComment on above:Random Glucose Reference Range is dependent on time and content of last meal. Glucose of more than 200 mg/dL in a nonstressed, ambulatory subject supports the diagnosis of Diabetes Mellitus. Result Comment: Random Glucose Reference Range is dependent on time and content of last meal. Glucose of more than 200 mg/dL in a nonstressed, ambulatory subject supports the diagnosis of Diabetes Mellitus.Performed By: #### GLULS ####Point of Care testing,[place] urethrocystogram retroon 13-14-4194PT [facility]st[facility] Main [place] [address] [place], [place] [id number] Fluoroscopy Report Signed Patient: Tosha Mcneal MR#: [id number] : 1950 Acct:[id number] Age/Sex: 74 / F ADM Date: 07/30/25 Loc: [place] Room: Type: [facility] Attending Dr: Shavon Mustafa MD Copies to: [...] Jr., D.OPablo 07/30/2025 1:27 PM Dictation Location: [place] [address] Transcribed By: [facility] 07/30/25 1327 Dictated By: Miki Kruse Jr, DO 07/30/25 1326 Signed By: 07/30/25 1327[facility] Physician GroupGlucose Poct Glucometerson 90-41-8117Fjvuwjt6Aax0: Cleaned [facility] Physician GroupComment on above:Result Comment: PERFORMED BY: [place] [address] PATHOLOGIST PAPER HANGER MANN HOLLAND M.D.Performed By: #### GLULS ####Point of Care testing,Commemt1 Glu2: Cleaned MeterNoFirstHealth Moore Regional Hospital - Hoke Physician GroupComment on above:Result Comment: PERFORMED BY: [address] [address] PATHOLOGIST PAPER HANGER MANN HOLLAND M.D.Performed By: #### GLULS #### Point of Care testing ,Glucose [Mass/Vol]176 mg/dLAdventHealth Winter Park Physician GroupComment on above: Result Comment: Random Glucose Reference Range is dependent on time and content of last meal. Glucose of more than 200 mg/dL in a nonstressed, ambulatory subject supports the diagnosis of Diabetes Mellitus.Performed By: #### LM #### Point of Care testing ,Heladio 07-30-2025 Specimen: [id number] Received: 07/31/25 Status: FANI Renaemike Num: [id number] Spec Type: Cytology Subm Dr: Shavon Mustafa MD Tissues: A URINECYTO (RT URETERAL DISTAL BRUSH) Procedures: Cyto Prepstain, PAPSTN Age/ Patient Sex Location Account Attending Physician Tosha Mcneal 74/F [place] [id number] Shavon Mustafa MD SPEC NUM: [id number] RECD: 07/31/25 STATUS: FANI CASEY NUM: [id number] OZZIE: 07/30/25 [facility] DR: Shavon Mustafa MD ENTERED: 07/31/[address] [facility] DR: SPEC TYPE: Cytology DEPT: CNG ENTERED BY: [id number] RECV BY: [id number] ORDERED: Cyto Prepstain, PAPSTN ORDERED: Cyto Prepstain, PAPSTN Pathological Diagnosis Right ureteral distal brush biopsy: Cohesive clusters of urothelial cells present; high-grade malignant features not identified. Comment: Cohesive clusters of urothelial cells may be associated with stones, inflammatory conditions , instrumentation effect or low-grade neoplasm. Clinical Information R Hyro ureteral nephrosis Gross Description Received fresh is 1 [place] said to have been obtained as R Ureteral Distal Stricture [place] Biopsy. Thinprep is prepared for microscopic examination. (RV/nh) Microscopic Description Microscopic examination was completed. Specimen: [id number] Received: 07/31/25 Status: SHERLEYDaniela Renae Num: [id number] Spec Type: Cytology Subm Dr: Shavon Mustafa MD Tissues: A URINECYTO (RT URETERAL DISTAL BRUSH) Procedures: Cyto Prepstain, PAPSTN Patient: Tosha Mcneal [id number] (Continued) Specimen: [id number] Received: 07/31/25 (Continued) Signed (signature on file) Ricki Martinez JR, MD 08/01/25 1513 Specimen: [id number] Received: 07/31/25 Status: FANI Casey Num: [id number] Spec Type: Cytology Subm Dr: Shavon Mustafa MD Tissues: A URINECYTO (RT URETERAL DISTAL BRUSH) Procedures: Cyto Prepstain, PAPSTN Patient: Tosha Mcneal [id number] (Continued) Specimen: [id number] Received: 07/31/25 (Continued) CPT Codes 97184 Specimen: [id number] Received: 07/31/25 Status: FANI Casey Num: [id number] Spec Type: Cytology Subm Dr: Shavon Mustafa MD Tissues: A URINECYTO (RT URETERAL DISTAL BRUSH) Procedures: Cyto Prepstain, PAPSTN Patient: Tosha Mcneal Ilan [id number] (Continued) Signed (signature on file) Ricki Martinez JR, MD 08/01/[address] [place] [address] Physician GroupNo Panel InformationOrdered By: Shavon Mustafa on 84-58-5782Sbmagnn Glucose CommentGlu2: cleaned [facility] HospitalPOCT Hemoglobin A1con 92-56-6511RaT1n (Bld) [Mass fraction]7 %4 - 7 %[facility] SystemProGeorgetown Behavioral Hospital SystemBacteria [Presence] in Urine sediment by Light microscopyOrdered By: Shavon Mustafa on 04-60-5365Gcwxnivf LM Ql (Urine sed)1+ [HPF]HighNone St. Francis HospitalBasic Metabolic Panelon 64-25-4963WJH/1.73 sq M.predicted MDRD (S/P/Bld) [Vol rate/Area]mL/min/{1.73_m2}NormalThe [facility] Group Comment on above:Performed By: #### BMP, PTT, CBC, PT #### [facility] [address] [place] [address] USABasophils [#/volume] in Blood by Automated countOrdered By: Shavon Mustafa on 64-58-8672Pxcjhzxdp (Bld) [#/Vol]0.1 10*3/uLNormal0.0-0.[address] [facility] Boardman HospitalComment on above:Result Comment: PERFORMED BY: [address] [place] [address] PATHOLOGIST PAPER HANGER MANN HOLLAND M.D.Performed By: #### BMP, PTT, CBC, PT #### [facility] [address] [place], [place] [address] USABasophils/100 leukocytes in Blood by Automated count Ordered By: Shavon Mustafa on 02-08-6433Wwfgbxmwa/100 WBC (Bld)1.2 %Normal.[facility] Boardman HospitalComment on above:Performed By: #### BMP, PTT, CBC, PT #### [facility] [address] [place] [address] USABilirubin Test strip Ql (U)Ordered By: Shavon Mustafa on 57-81-1240Yewykkmrn Ql (U)1+HighNegativeMercy Health St. Elizabeth Boardman HospitalCalcium [Mass/volume] in Serum or PlasmaOrdered By: Shavon Mustafa on 45-07-3220Qpghwid [Mass/Vol]8.4 mg/dLLow8.6-10.3FDetwiler Memorial HospitalComment on above: Result Comment: PERFORMED BY: [place] [address] PATHOLOGIST PAPER HANGER MANN HOLLAND M.D.Performed By: #### BMP, PTT, CBC, PT #### [facility] [address] [place] [address] USACarbon dioxide, total [Moles/volume] in Serum or Plasma Ordered By: Shavon Mustafa on 37-53-4019KB8 [Moles/Vol]32.9 mmol/LHigh21.0-31.[address] [facility] Board[facility] HospitalComment on above:Performed By: #### BMP, PTT, CBC, PT #### [facility] [address] [place] [address] USAChloride [Moles/volume] in Serum or PlasmaOrdered By: Shavon Mustafa on 92-62-5792Cuklsdds [Moles/Vol]97 mmol/TUjw57-844PxwjvoosuMercy Health St. Elizabeth Boardman HospitalComment on above:Performed By: #### BMP, PTT, CBC, PT #### [facility] [address] [place] [address] USAColor of Urine by AutoOrdered By: Shavon Mustafa on 07-16-2025 Color (U)YellowNormalYellowMercy Health St. Elizabeth Boardman HospitalComment on above: Order Comment: Name Collection Type:: Clean-Voided MidstreamPerformed By: #### CUU, ADDONUAPLUS #### [place] [address] USAComplete Blood Count Auto Diffon 46-76-8463Wemq Corpuscular HGB Conc32.6 g/sZAggknn38.0-35.0The [facility] Physician GroupComment on above:Performed By: #### BMP, PTT, CBC, PT #### [facility] [address] [place] [address] USANRBC%0.1 /100{WBC}Normal0-0.5The [facility] Comment on above:Performed By: #### BMP, PTT, CBC, PT #### [facility] [address] [place] [address] USAWhite Blood Count8.5 [CFU]/mLNormal3.8-11.6The [facility] Physician GroupComment on above:Performed By: #### BMP, PTT, CBC, PT #### [facility] [address] [place] [address] USACreatinine [Mass/volume] in Serum or PlasmaOrdered By: Shavon Mustafa on 27-53-3003Jehykvmzcv [Mass/Vol]0.88 mg/dLNormal0.60-1.20[facility] HospitalComment on above:Performed By: #### BMP, PTT, CBC, PT #### [facility] [address] [place] [address] USADipstick and Microscopicon 70-16-0119Mtdoytes,Urine1+ [HPF]NormalNone SeenThe [facility] Physician GroupComment on above:Order Comment: Name Collection Type:: Clean-Voided MidstreamResult Comment: PERFORMED BY: [place] [address] PATHOLOGIST PAPER HANGER MANN HOLLAND M.D.Performed By: #### CUU, ADDONUAPLUS #### [facility] [address] [place] [address] USABilirubin,Urine1+NormalNegativeThe [facility] Physician GroupComment on above:Order Comment: Name Collection Type:: Clean-Voided MidstreamPerformed By: #### CUU, ADDONUAPLUS #### [facility] [address] [place] [address] USAGlucose Ql (U)NormalNormalNormalThe [facility] Physician GroupComment on above:Order Comment: Name Collection Type:: Clean-Voided MidstreamPerformed By: #### CUU, ADDONUAPLUS #### [place] [address] USANitrite,UrineNegativeNormalNegativeSt. Joseph'S Children'S Hospital Physician GroupComment on above:Order Comment: Name Collection Type:: Clean-Voided MidstreamPerformed By: #### CUU, ADDONUAPLUS #### [place] [address] USAOccult Blood,UrineNegativeNormalNegativeThe [facility] Physician GroupComment on above:Order Comment: Name Collection Type:: Clean- Voided MidstreamResult Comment: PERFORMED BY: [place] [address] PATHOLOGIST PAPER HANGER MANN HOLLAND M.D.Performed By: #### CUU, ADDONUAPLUS #### [place] [address] USAOthe Crystals,UrineNormalThe [facility] Comment on above:Order Comment: Name Collection Type:: Clean-Voided Midstream Result Comment: starch crystals notedPerformed By: #### CUU, ADDONUAPLUS #### [place] [address] USARBC LM.HPF (Urine sed) [#/Area]0 /[HPF]Normal0-4The [facility] Physician GroupComment on above:Order Comment: Name Collection Type:: Clean-Voided MidstreamPerformed By: #### CUU, ADDONUAPLUS #### [place] [address] USASpecificy Dante,Urine1.561Ihncbq3.001-1.030The [facility] Physician GroupComment on above:Order Comment: Name Collection Type:: Clean- Voided MidstreamPerformed By: #### CUU, ADDONUAPLUS #### [place] [address] USASquamous Epithelial Cell,Mvyzk57-28Awibey0-6Mng [facility] Physician GroupComment on above:Order Comment: Name Collection Type:: Clean- Voided MidstreamPerformed By: #### CUU, ADDONUAPLUS #### [place] [address] USAUrobilinogen,Urine2 mg/dLNormalNormalThe [facility] Physician GroupComment on above:Order Comment: Name Collection Type:: Clean- Voided MidstreamPerformed By: #### CUU, ADDONUAPLUS #### [place] [address] USAWBC LM.HPF (Urine sed) [#/Area]0 /[HPF]Normal0-4The [facility] Physician GroupComment on above:Order Comment: Name Collection Type:: Clean-Voided MidstreamPerformed By: #### CUU, ADDONUAPLUS #### [place] [address] USAEosinophils [#/volume] in Blood by Automated countOrdered By: Shavon Mustafa on 02-44-7951Wybazrlfkxp (Bld) [#/Vol]0.1 10*3/uLNormal0.0-0.[address] [facility] HospitalComment on above:Performed By: #### BMP, PTT, CBC, PT #### [place] [address] USAEosinophils/100 leukocytes in Blood by Automated count Ordered By: Shavon Mustafa on 19-21-9806Udkxpjmfyrg/100 WBC (Bld)1.2 %Normal. [facility] HospitalComment on above:Performed By: #### BMP, PTT, CBC, PT #### [place] [address] USAEpithelial cells.squamous [#/area] in Urine sediment by Microscopy high power fieldOrdered By: Shavon Mustafa on 35-48-2305Mskhtfbydb cells.squamous LM.HPF (Urine sed) [#/Area]10-19 [HPF]High0-2FDetwiler Memorial HospitalErythrocyte distribution width [Ratio] by Automated countOrdered By: Shavon Mustafa on 47-00-9331Tsqewyfyecz distribution width (RBC) [Ratio]16.4 % High11.9-15.3FDetwiler Memorial HospitalComment on above:Performed By: #### BMP, PTT, CBC, PT #### [facility] [address] [place] [address] USAErythrocytes [#/area] in Urine sediment by Microscopy high power fieldOrdered By: Shavon Mustafa on 75-40-5912EZZ LM.HPF (Urine sed) [#/Area]0- 1 [HPF]0-4FDetwiler Memorial HospitalErythrocytes [#/volume] in Blood by Automated countOrdered By: Shavon Mustafa on 47-63-6516SIJ (Bld) [#/Vol]4.60 10*6/uL Normal3.60-5.00[facility] HospitalComment on above:Performed By: #### BMP, PTT, CBC, PT #### [facility] [address] [place] [address] USAGlomerular filtration rate [Volume Rate/Area] in Serum, Plasma or Blood by CreatinineOrdered By: Shavon Mustafa on 68-18-2527Akgnvbgwlg filtration rate [Volume Rate/Area] in Serum, Plasma or Blood by Creatinine> 60.0 mL/MinMercy Health St. Elizabeth Boardman HospitalGlucose [Mass/volume] in Serum or Plasma Ordered By: Shavon Mustafa on 30-01-0393Zmsqnif [Mass/Vol]173 mg/nWDsyc55-[address] [facility] Boardman HospitalComment on above:ADA recommended reference rangeRandom Glucose Reference Range is dependent on time and content of last meal. Glucose of more than 200 mg/dL in a nonstressed, ambulatory subject supports the diagnosisof Diabetes Mellitus.Result Comment: Random Glucose Reference Range is dependent on time and content of last meal. Glucose of more than 200 mg/dL in a nonstressed, ambulatory subject supports the diagnosis of Diabetes Mellitus. ADA recommended reference rangePerformed By: #### BMP, PTT, CBC, PT #### [facility] [address] [place] [address] USAHematocrit [Volume Fraction] of Blood by Automated count Ordered By: Shavon Mustafa on 12-07-4765Zmehzjoglw (Bld) [Volume fraction]40.4 % Qqvnbn97.0-46.4FDetwiler Memorial HospitalComment on above:Performed By: #### BMP, PTT, CBC, PT #### [facility] [address] [place] [address] USAHemoglobin [Mass/volume] in BloodOrdered By: Shavon Mustafa on 94-35-0852Ihzwplgxzn (Bld) [Mass/Vol]13.2 g/cPIpmzly05.8-15.4FDetwiler Memorial HospitalComment on above:Performed By: #### BMP, PTT, CBC, PT #### [facility] [address] [place] [address] USAINR in Platelet poor plasma by Coagulation assayOrdered By: Shavon Mustafa on 17-44-0470HQF Coag (PPP) [Relative time]1.1 {INR}Normal [facility] Board[facility] HospitalComment on above:INR Therapeutic Range A) Pre- and Peroperative OAT started two weeks before surgery. NOT HIP SURGERY: 1.5 - 2.5 HIP SURGERY: 2 - 3B) Primary and secondary prevention of venous THROMBOSIS: 2 - 3C) Active venous thrombosis, pulmonary embolismand prevention of recurrent venous thrombosis: 2 - 3D) Prevention of arterial thromboembolismincluding patients with mechanical heart valves: 3 - 4.5Result Comment: INR Therapeutic Range A) Pre- and [...] patients with mechanical heart valves: 3 - 4.5Performed By: #### BMP, PTT, CBC, PT ####[facility] [address] [place] [address] USAKetones [Presence] in Urine by Test stripOrdered By: Shavon Mustafa on 77-44-7424Wgbyang Ql (U)TraceNormalNegativeMercy Health St. Elizabeth [facility] Hospital Comment on above:Order Comment: Name Collection Type:: Clean-Voided Midstream Performed By: #### CUU, ADDONUAPLUS #### [facility] [address] [place] [address] USALeukocyte esterase [Presence] in Urine by Test strip Ordered By: Shavon Mustafa on 68-21-3086Wisxkadvt esterase Test strip Ql (U)2+Normal NegativeMercy Health St. Elizabeth Boardman HospitalComment on above:Order Comment: Name Collection Type:: Clean-Voided MidstreamPerformed By: #### JANIEU, KYLEIGHSHAMARUAPLUS #### [facility] [address] [place] [address] USALeukocytes [#/area] in Urine sediment by Microscopy high power fieldOrdered By: Shavon Mustafa on 97-76-2460BVC LM.HPF (Urine sed) [#/Area]0-1 [HPF]0-4FDetwiler Memorial HospitalLeukocytes [#/volume] corrected for nucleated erythrocytes in Blood by Automated counOrdered By: Shavon Mustafa on 87-09-8636YKK corrected for nucl RBC Auto (Bld) [#/Vol]8.5 10*3/uL3.8-11.[address] [facility] Boardman HospitalLeukocytes [#/volume] in Blood by Automated countOrdered By: Shavon Mustafa on 86-11-3260DKG (Bld) [#/Vol]8.5 10*3/uLNormal 3.8-11.6FDetwiler Memorial HospitalComment on above:Performed By: #### BMP, PTT, CBC, PT #### [facility] [address] [place] [id number] USALymphocytes [#/volume] in Blood by Automated countOrdered By: Shavon Mustafa on 27-57-4287Zmofyrzvrzw (Bld) [#/Vol]1.7 10*3/uLNormal1.00-4.[address] [facility] HospitalComment on above:Performed By: #### BMP, PTT, CBC, PT #### [facility] [address] [place] [address] USALymphocytes/100 leukocytes in Blood by Automated count Ordered By: Shavon Mustafa on 97-31-8433Jqkxnrbhore/100 WBC (Bld)20.2 %Normal. [facility] HospitalComment on above:Performed By: #### BMP, PTT, CBC, PT #### [facility] [address] [place] [address] USAMCH [Entitic mass] by Automated countOrdered By: Shavon Mustafa on 15-67-8733WKL (RBC) [Entitic mass]28.6 obHeglyv75.7-34.3FDetwiler Memorial HospitalComment on above:Performed By: #### BMP, PTT, CBC, PT #### [facility] [address] Auto (RBC) [Mass/Vol]Ordered By: Shavon Mustafa on 04-83-4832LQCB (RBC) [Mass/Vol]32.6 g/dL32.0-35.0[facility] HospitalMCV [Entitic volume] by Automated countOrdered By: Shavon Mustafa on 07-16-2025 MCV (RBC) [Entitic vol]87.8 nJEeepsh91-673GsmvusyuuMercy Health St. Elizabeth [facility] Hospital Comment on above:Performed By: #### BMP, PTT, CBC, PT #### [facility] [address] [place] [address] USAMonocytes [#/volume] in Blood by Automated countOrdered By: Shavon Mustafa on 89-85-3188Msjdahqac (Bld) [#/Vol]0.6 10*3/uLNormal0.0-0.[address] [facility] HospitalComment on above:Performed By: #### BMP, PTT, CBC, PT #### [facility] [address] [place] [address] USAMonocytes/100 leukocytes in Blood by Automated count Ordered By: Shavon Mustafa on 55-65-9958Gnuxmbctf/100 WBC (Bld)7.3 %Normal.[facility] HospitalComment on above:Performed By: #### BMP, PTT, CBC, PT #### [facility] [address] [place] [address] USANeutrophils [#/volume] in Blood by Automated countOrdered By: Shavon Mustafa on 72-50-9740Xqkzniprfvl (Bld) [#/Vol]6.0 10*3/uLNormal1.8-7.[address] [facility] HospitalComment on above:Performed By: #### BMP, PTT, CBC, PT #### [facility] [address] [place] [address] USANeutrophils/100 leukocytes in Blood by Automated count Ordered By: Shavon Mustafa on 33-64-9882Mybpcooyijc/100 WBC (Bld)70.1 %Normal. [facility] HospitalComment on above:Performed By: #### BMP, PTT, CBC, PT #### [facility] [address] [place] [address] USANitrite Test strip Ql (U)Ordered By: Shavon Mustafa on 65-15-6534Xnlchtn Ql (U)NegativeNegativeMercy Health St. Elizabeth Boardman HospitalNo Panel InformationOrdered By: Shavon Mustafa on 13-81-2654Dcwuijaf Creatinine Clearance (ChemN/[facility] HospitalNucleated erythrocytes [Presence] in Blood by Automated countOrdered By: Shavon Mustafa on 07-16-2025 Nucleated RBC Auto Ql (Bld)0.1 /100{WBC}0-0.5FDetwiler Memorial Hospital Partial Thromboplastin Timeon 36-35-9888iTSX Coag (Bld) [Time]29.8 sNormal 25.1-36.5The [facility] Physician GroupComment on above:Result Comment: A hematocrit value greater than 55% may lead to inaccurate results in coagulation testing. Patients having hematocrit values >55% require a special collection tube for coagulation studies. Please contact the laboratory at [phone] for redraw instructions. PERFORMED BY: [facility] [address] [facility] [place] [address] PATHOLOGIST PAPER HANGER MANN HOLLAND M.D.Performed By: #### BMP, PTT, CBC, PT ####[facility] [address] [place] [address] USAPlatelet mean volume [Entitic volume] in Blood by Automated countOrdered By: Shavon Mustafa on 89-83-6615Wgkihhnc mean volume (Bld) [Entitic vol]8.0 fLNormal6.3-10.7FDetwiler Memorial HospitalComment on above:Performed By: #### BMP, PTT, CBC, PT #### [facility] [address] [place] [id number] USAPlatelets [#/volume] in Blood by Automated countOrdered By: Shavon Mustafa on 45-53-1344Trpmhugnx (Bld) [#/Vol]216 10*3/aEZijgzj980-[address] [facility] HospitalComment on above:Performed By: #### BMP, PTT, CBC, PT #### [facility] [address] [place] [address] USAPotassium [Moles/volume] in Serum or PlasmaOrdered By: Shavon Mustafa on 82-14-2159Tezivkale [Moles/Vol]3.3 mmol/LLow3.5-5.1FDetwiler Memorial HospitalComment on above:Performed By: #### BMP, PTT, CBC, PT #### [place] [address] USAProtein [Mass/volume] in Urine by Test stripOrdered By: Shavon Mustafa on 47-42-0297Spwwhpp (U) [Mass/Vol]30 mg/dLNormalNegativeMercy Health St. Elizabeth Boardman HospitalComment on above:Order Comment: Name Collection Type:: Clean-Voided MidstreamPerformed By: #### CUU, ADDONUAPLUS #### [place] [id number] USAProthrombin time (PT)Ordered By: Shavon Mustafa on 17-12-3663QR Coag (PPP) [Time]12.5 sNormal9.0-12.9[facility] Board[facility] HospitalComment on above:A hematocrit value greater than 55% may lead to inaccurate results in coagulation testing. Patientshaving hematocrit values >55% require a special collection tube for coagulation studies. Please contact the laboratory at [phone] for redraw instructions.Result Comment: A hematocrit value greater than 55% may lead to inaccurate results in coagulation testing. Patients having hematocrit values >55% require a special collection tube for coagulation studies. Please contact the laboratory at [phone] for redraw instructions.Performed By: #### BMP, PTT, CBC, PT ####[facility] [address] [place] [id number] USARBC Test strip (U) [#/Vol]Ordered By: Shavon Mustafa on 23-97-8452UZU (U) [#/Vol]NegativeNegativeWVUMedicine Barnesville Hospitalerum or plasma anion gap determinationOrdered By: Shavon Mustafa on 96-46-6995Brrgk gap [Moles/Vol]16.4 mmol/LHigh6.0-15.0[facility] Boardman HospitalComment on above:Performed By: #### BMP, PTT, CBC, PT #### [facility] [address] [id number] USASodium [Moles/volume] in Serum or PlasmaOrdered By: Shavon Mustafa on 04-33-9549Eyiclu [Moles/Vol]143 mmol/TNkqbmb295-588ZwidanqvzMercy Health St. Elizabeth Boardman HospitalComment on above:Performed By: #### BMP, PTT, CBC, PT #### [facility] [address] [id number] USASpecific gravity Test strip (U) [Rel density]Ordered By: Shavon Mustafa on 10-12-6007Guhpsaba gravity (U) [Rel density]1.0251.001-1.[address] [facility] Boardman HospitalUnidentified crystals [Presence] in Urine sediment by Light microscopyOrdered By: Shavon Mustafa on 34-12-8884Gfxkuphvziec crystals LM Ql (Urine sed)See commentMercy Health St. Elizabeth Boardman HospitalComment on above:starch crystals notedUrea nitrogen [Mass/volume] in Serum or Plasma Ordered By: Shavon Mustafa on 04-96-1795Tbsj nitrogen [Mass/Vol]21 mg/dLNormal7-[address] [facility] Boardman HospitalComment on above:Performed By: #### BMP, PTT, CBC, PT #### [facility] [address] [place] [address] USAUrine Cultureon 19-37-0326Ekiivajd identified Cx Nom (U) >100,000 colonies/ml mixed bacterial skin contaminants 2 Days PERFORMED BY: [place] [id number] PATHOLOGIST PAPER HANGER MANN HOLLAND M.D.NormalSt. Joseph'S Children'S Hospital Physician GroupComment on above: Performed By: #### CUU, ADDONUAPLUS #### [facility] [address] [id number] USAUrine appearance determinationOrdered By: Shavon Mustafa on 88-21-2997Dgtnzdujlj (U)Slightly cloudyCritically abnormalCleFort Hamilton HospitalComment on above:Order Comment: Name Collection Type:: Clean-Voided MidstreamPerformed By: #### CUU, ADDONUAPLUS #### [facility] [address] [id number] USAUrine cultureOrdered By: Shavon Mustafa on 33-13-2691Rwcyhzhi identified Cx Nom (U)[address] Elizabeth Boardman HospitalUrine glucose measurement by automated test strip (mass/volume)Ordered By: Shavon Mustafa on 71-88-2209Qfslxzi Auto test strip (U) [Mass/Vol]Normal mg/dLNoGreen Cross HospitalUrobilinogen Test strip (U) [Mass/Vol]Ordered By: Shavon Mustafa on 26-84-3696Yuwwrhxfeqws (U) [Mass/Vol]2 mg/dLKettering Health SpringfieldaPTT in Platelet poor plasma by Coagulation assayOrdered By: Shavon Mustafa on 36-69-4253fBUD Coag (PPP) [Time]29.8 s25.1-36.5FDetwiler Memorial HospitalComment on above:A hematocrit value greater than 55% may lead to inaccurate results in coagulation testing. Patientshaving hematocrit values >55% require a special collection tube for coagulation studies. Please contact the laboratory at [phone] for redraw instructions.pH of Urine by Test strip Ordered By: Shavon Mustafa on 05-56-2858xZ (U)6.0 [pH]Normal5.0-9.0Mer[facility] Health St. Elizabeth Boardman HospitalComment on above:Order Comment: Name Collection Type:: Clean- Voided MidstreamPerformed By: #### CUU, ADDONUAPLUS #### [facility] [address] [place] [address] USAOffice Visiton 29-84-5704Quhfuu-up [id number] Tosha Mcneal 1950 F Date Provider Department Center 06/27/2025 [facility] Family History Problem Relation Age of Onset Coronary artery disease Father Heart attack Father Family Status - Relation Status Age at Mother Father Sister Alive Level of Service:75939 ME OFFICE/OUTPATIENT ESTABLISHED MOD [facility] 30 MIN Reason for Visit and Comments: Hypertension [748576] Congestive Heart Failure [127] Hyperlipidemia [182]NormalUniversity Hospitals Elyria Medical Center 48-11-1837LnblothovAkrhlzaka From: Chaya Alicea To: JULIO Mustafa; Sent: 01/16/2025 10:10:51 EDT Show up: 03/18/2025 10:10:00 EDT Subject: GRACE @ [facility] Due Date/Time: 04/18/2025 10:10:00 EDT Reminder Message Pt to complete GRACE @ [facility] prior to appt in 3 mos. Order in encounter from 01/16/25 (dx: hydroureteronephrosis). Order faxed to [facility] central scheduling today. [facility] called patient 04/03 no answer I attempted to call patient today phone went to follow up on 06/19/25 spoke to patient she states that she has been sick and has not have a chance to schedule GRACE, will call [facility] this week to schedule something. Patient seen IO 06/19/25[facility] HospitalUrology Office/Clinic Noteon 53-98-4500Xbugckh Office/Clinic NoteUrology Office/Clinic Note Chief Complaint fu HPI Staff Pt is a 74 year old female here for a 3 month follow up with GRACE done at [facility] previous DX: hydroureteronephrosis, history of kidney stones [...] by bowel, distal 1/3 ureter GRACE 06/11/25 FR - Mild R sided hydro. No stone [...] R ureteroscopy, possible biopsy, possible ureteral dilation, stentplacement. The procedural risks, benefits, details, and treatment [...] had any episodes recently. [1] Current imaging isneg for stones. Thinks she passed stones on the right. -Dietary modifications Follow-up With When Contact Information Ramsey JUAREZ, Shavon Lin, URL, URO Additional Instructions: schedule cysto, diagnostic R ureteroscopy, possible stent placement Patient Education Hydronephrosis I, Vivien Jain, personally scribed for Dr. Mustafa on 06/19/2025 10:48:37. . Documentation recorded by the scribe, Vivien Jain, accurately reflects the services(s) I [...] See Instructions rosuvastatin 10 (more content not included)...[facility] Comment on above:Result Comment: Electronically Signed By: Ramsey JUAREZ, Shavon Lin\.br\Date and Time Signed: 06/19/25 11:07EDT\.br\Electronically Co-Signed By: Vivien Jain\.br\Date and Time Co-Signed: 06/19/25 10:48 EDTUS renal BIon 20-26-1927IO renal [facility] [place] [address] [place] [address] Ultrasound Report Signed Patient: Tosha Mcneal MR#: [id number] : 1950 Acct:[id number] Age/Sex: 74 / F ADM Date: 06/11/25 Loc: Room: Type: [facility] Attending Dr: Shavon Mustafa MD Ordering [...] Jr., DPabloOPablo 06/11/2025 1:21 PM Dictation Location: [place] [address] Tech: Cyndi Kevin Transcribed By: SRUTHI 06/11/25 1321 Dictated By: Miki Kruse Jr, DO 06/11/25 1319 Signed By: 06/11/25 1321[facility] WITH AUTO DIFFERENTIALon 52-73-8594Zxqu form neutrophils/100 WBC (Bld)3 %NormalPike Community Hospitalca [facility] PPGComment on above:Result Comment: This is an appended report. These results have been appended to a previously preliminary verified report. Performed By: #### CBCA #### [facility] ([facility]) [address] [place] [address] VIRCELLAVISION BASOPHILS ABSOLUTE COUNT (10*3/UL) BY MANUAL COUNT0.1 10*3/uLNormal0.0-0.2PWexner Medical Center Ambulatory PPGComment on above: Result Comment: This is an appended report. These results have been appended to a previously preliminary verified report.Performed By: #### CBCA #### [facility] ([facility]) [address] [place] [address] VIRCELLAVISION BASOPHILS RELATIVE PERCENT BY MANUAL COUNT1 % NormalLouis Stokes Cleveland [facility] Center Ambulatory PPGComment on above:Result Comment: This is an appended report. These results have been appended to a previously preliminary verified report.Performed By: #### CBCA #### [facility] ([facility]) [address] [place] [address] VIRCELLAVISION DIFFERENTIAL TYPEMANUAL DIFFERENTIALNormal [facility] Ambulatory PPGComment on above:Result Comment: This is an appended report. These results have been appended to a previously preliminary verified report.Performed By: #### CBCA #### [facility] ([facility]) [address] [place] [address] VIRCELLAVISION EOSINOPHILS ABSOLUTE COUNT (10*3/UL) BY MANUAL COUNT0.1 10*3/uLNormal0.0-0.4[facility]ulatory PPGComment on above: Result Comment: This is an appended report. These results have been appended to a previously preliminary verified report.Performed By: #### CBCA #### [facility] ([facility]) [address] [place] [address] VIRCELLAVISION EOSINOPHILS PERCENT BY MANUAL COUNT1 %Normal [facility] Ambulatory PPGComment on above:Result Comment: This is an appended report. These results have been appended to a previously preliminary verified report.Performed By: #### CBCA #### [facility] ([facility]) [address] [place] [address] VIRCELLAVISION LYMPHOCYTES ABSOLUTE COUNT (10*3/UL) BY MANUAL COUNT1.0 10*3/uLNormal1.0-3.5PWexner Medical Center Ambulatory PPGComment on above: Result Comment: This is an appended report. These results have been appended to a previously preliminary verified report.Performed By: #### CBCA #### [facility] ([facility]) [address] [place] [address] VIRCELLAVISION LYMPHOCYTES RELATIVE PERCENT BY MANUAL COUNT11 % [facility] Ambulatory PPGComment on above:Result Comment: This is an appended report. These results have been appended to a previously preliminary verified report.Performed By: #### CBCA #### [facility] ([facility]) [address] [place] [address] VIRCELLAVISION MONOCYTES ABSOLUTE COUNT (10*3/UL) IN BLOOD BY MANUAL COUNT0.6 10*3/uLNormal0.0-0.9[facility]ulatory PPGComment on above:Result Comment: This is an appended report. These results have been appended to a previously preliminary verified report.Performed By: #### CBCA #### [facility] ([facility]) [address] [place] [address] VIRCELLAVISION MONOCYTES RELATIVE PERCENT BY MANUAL COUNT6 % [facility] Ambulatory PPGComment on above:Result Comment: This is an appended report. These results have been appended to a previously preliminary verified report.Performed By: #### CBCA #### [facility] ([facility]) [address] [place] [address] VIRCELLAVISION NEUTROPHILS ABSOLUTE COUNT BY MANUAL COUNT7.4 10*3/uLHigh1.5-6.6[facility]ulatory PPGComment on above:Result Comment: This is an appended report. These results have been appended to a previously preliminary verified report.Performed By: #### CBCA #### [facility] ([facility]) [address] [place] [address] VIRCELLAVISION NEUTROPHILS RELATIVE PERCENT BY MANUAL COUNT78 % NormalLouis Stokes Cleveland [facility] Center Ambulatory PPGComment on above:Result Comment: This is an appended report. These results have been appended to a previously preliminary verified report.Performed By: #### CBCA #### [facility] ([facility]) [address] [place] [address] VIRCELLAVISION RBC MORPHOLOGYNormalNormalLouis Stokes [facility] Ambulatory PPGComment on above:Result Comment: This is an appended report. These results have been appended to a previously preliminary verified report. Performed By: #### CBCA #### [facility] ([facility]) [address] [place] [address] VIRErythrocyte distribution width (RBC) [Ratio]16.6 %High 11.5-15[facility]ulatory PPGComment on above:Performed By: #### CBCA #### [facility] ([facility]) [address] [place] [address] VIRHematocrit (Bld) [Volume fraction]35.3 %Clxrtd98-11MwxSonuxd Hospital Ambulatory PPGComment on above:Performed By: #### CBCA #### [facility] ([facility]) [address] [place] [address] VIRHemoglobin (Bld) [Mass/Vol]11.4 g/dLLow11.7-15.5PWexner Medical Center Ambulatory PPGComment on above:Performed By: #### CBCA #### [facility] ([facility]) [address] [place] [address] VIRMCH (RBC) [Entitic mass]28.6 gqWsyfib63-09CipWyaouq Hospital Ambulatory PPGComment on above:Performed By: #### CBCA #### [facility] ([facility]) [address] [place] [address] VIRMCHC (RBC) [Mass/Vol]32.4 g/uCNqrwns26-62UemWjcjwk Hospital Ambulatory PPGComment on above:Performed By: #### CBCA #### [facility] ([facility]) [address] [place] [address] VIRMCV (RBC) [Entitic vol]88 dNRgpkjy04-548GkzHavuyv Hospital Ambulatory PPGComment on above:Performed By: #### CBCA #### [facility] ([facility]) [address] [place] [address] VIRPlatelet mean volume (Bld) [Entitic vol]7.5 fLNormal7-12 [facility] Ambulatory PPGComment on above:Performed By: #### CBCA #### [facility] ([facility]) [address] [place] [address] VIRPlatelets (Bld) [#/Vol]275 10*3/vWPglicu845-829BhqSkgzsk Hospital Ambulatory PPGComment on above:Performed By: #### CBCA #### [facility] ([facility]) [address] [place] [address] VIRRBC COUNT3.99 X10E12/LNormal3.8-5.2PWexner Medical Center Ambulatory PPGComment on above:Performed By: #### CBCA #### [facility] ([facility]) [address] [place] [address] VIRWBC (Bld) [#/Vol]9.2 10*3/uLNormal4-11[facility] Ambulatory PPGComment on above:Performed By: #### CBCA #### [facility] ([facility]) [address] [place] [address] VIRCOMPREHENSIVE METABOLIC PANELon 94-17-5082Xmkkzus [Mass/Vol] 3.7 g/dLNormal3.2-5.3PWexner Medical Center Ambulatory PPGComment on above:Performed By: #### CMP #### [facility] ([facility]) [address] [place] [address] VIRALP [Catalytic activity/Vol]57 U/BVmhils62-674ZctTyigil Hospital Ambulatory PPGComment on above:Performed By: #### CMP #### [facility] ([facility]) [address] [place] [address] VIRALT [Catalytic activity/Vol]10 U/LNormal<=31PWexner Medical Center Ambulatory PPGComment on above:Performed By: #### CMP #### [facility] ([facility]) [address] [place] [address] VIRAnion gap [Moles/Vol]10 mmol/LNormal5-15[facility] Ambulatory PPGComment on above:Performed By: #### CMP #### [facility] ([facility]) [address] [place] [address] VIRAST [Catalytic activity/Vol]12 U/LNormal<=41[facility] Ambulatory PPGComment on above:Performed By: #### CMP #### [facility] ([facility]) [address] [place] [address] VIRBilirubin [Mass/Vol]1.7 mg/dLHigh0.3-1.2PWexner Medical Center Ambulatory PPGComment on above:Performed By: #### CMP #### [facility] ([facility]) [address] [place] [address] VIRCalcium [Mass/Vol]9.2 mg/dLNormal8.5-10.5PWexner Medical Center Ambulatory PPGComment on above:Performed By: #### CMP #### [facility] ([facility]) [address] [place] [address] VIRChloride [Moles/Vol]99 mmol/DSlmwgg41-041GleZjzwcv Hospital Ambulatory PPGComment on above:Performed By: #### CMP #### [facility] ([facility]) [address] [place] [address] VIRCO2 [Moles/Vol]30 mmol/UVeziyk24-11FjfUkxnle Hospital Ambulatory PPGComment on above:Performed By: #### CMP #### [facility] ([facility]) [address] [place] [address] VIRCreatinine [Mass/Vol]0.79 mg/dLNormal0.40-1.00[facility] Ambulatory PPGComment on above:Result Comment: METHOD TRACEABLE TO IDMS STANDARDPerformed By: #### CMP #### [facility] ([facility]) [address] [place] [address] VIRGFR/1.73 sq M.predicted among non-blacks MDRD (S/P/Bld) [Vol rate/Area]78 mL/min/{1.73_m2}Normal>=60ProNorwalk Memorial Hospital Ambulatory PPGComment on above:Result Comment: Reported eGFR is based on the CKD-EPI 2020 equation that does not use a race coefficient.Performed By: #### CMP #### [facility] ([facility]) [address] [place] [address] VIRGlucose [Mass/Vol]155 mg/hNXbbc11-84WyvYoadxn Hospital Ambulatory PPGComment on above:Performed By: #### CMP #### [facility] ([facility]) [address] [place] [address] VIRPotassium [Moles/Vol]3.5 mmol/LNormal3.5-5.0[facility] Ambulatory PPGComment on above:Performed By: #### CMP #### [facility] ([facility]) [address] [place] [address] VIRProtein [Mass/Vol]7.2 g/dLNormal6.0-8.0[facility] Ambulatory PPGComment on above:Performed By: #### CMP #### [facility] ([facility]) [address] [place] [address] VIRSodium [Moles/Vol]139 mmol/RMteuqq846-675RvnMkepnu Hospital Ambulatory PPGComment on above:Performed By: #### CMP #### [facility] ([facility]) [address] [place] [address] VIRUrea nitrogen [Mass/Vol]14 mg/dLNormal5-27ProNorwalk Memorial Hospital Ambulatory PPGComment on above:Performed By: #### CMP #### [facility] ([facility]) [address] [place] [address] VIRBasic Metabolic Panelon 65-45-5016Maeek gap [Moles/Vol]12 mmol/L9 - 16 mmol/LBon [facility] HealthCalcium [Mass/Vol]8.8 mg/dL8.6 - 10.4 mg/dLBon [facility] HealthChloride [Moles/Vol]102 mmol/L98 - 107 mmol/LBon [facility] HealthCO2 [Moles/Vol]25 mmol/L20 - 31 mmol/LBon [facility] CenterCreatinine [Mass/Vol]0.8 mg/dL0.6 - 0.9 mg/dLBon [facility] DistrictMy [facility] HealthEst, Glom Filt Rate77- PINFBon [facility] Medical CenterComment on above: These results are not intended [...] therapy that affects renal tubular secretion. Glucose [Mass/Vol]183 mg/tEDsgn78 - 99 mg/dLBon [facility] Cubiez Interpretation and review of laboratory resultsAbnormalBon [facility] Potassium [Moles/Vol]4.2 mmol/L3.7 - 5.3 mmol/LBon [facility] CenterSodium [Moles/Vol]139 mmol/L136 - 145 mmol/LBon [facility] DistrictMy [facility] HospitalUrea nitrogen [Mass/Vol]23 mg/dL8 - 23 mg/dLBon [facility] Medical CenterBasic Metabolic Profon 98-86-0113Jxzpr gap [Moles/Vol]12 mmol/LNormal9-16[facility] Health SystemComment on above:Performed By: #### MG, CDP, IOCAL, GLYHGB, BMP ####[facility] [address] [place] [address] Lab Director: Jose Miguel Davis, MDCalcium [Mass/Vol]8.8 mg/dLNormal8.6-10.4Hol[facility] Health SystemComment on above:Performed By: #### MG, CDP, IOCAL, GLYHGB, BMP ####[facility] [address] [place] [address] Lab Director: LAURI Gilberthloride [Moles/Vol]102 mmol/ZHkyhbc01-014ErkifHolzer Health SystemComment on above:Performed By: #### MG, CDP, IOCAL, GLYHGB, BMP ####[facility] [address] [place] [address] Lab Director: Jose Miguel Davis MDCO2 [Moles/Vol]25 mmol/IYacypf67-28XsybnHolzer Health System Comment on above:Performed By: #### MG, CDP, IOCAL, GLYHGB, BMP ####[facility] [address] [place] [address] Lab Director: LAURI Gilbertreatinine [Mass/Vol]0.8 mg/dLNormal0.6-0.9Hol[facility] Health SystemComment on above:Performed By: #### MG, CDP, IOCAL, GLYHGB, BMP ####[facility] [address] [place] [address] Lab Director: Jose Migeul Davis MDGFR/1.73 sq M.predicted among non-blacks MDRD (S/P/Bld) [Vol rate/Area]77 mL/min/{1.73_m2}Normal>60MerSutter Medical Center, SacramentoComment on above:Result Comment: These results are not intended for [...] or following therapy that affects renal tubular secretion.Performed By: #### MG, CDP, IOCAL, GLYHGB, BMP ####[facility] [address] [place] [phone] Director: Jose Miguel Davis MDGlucose [Mass/Vol]183 mg/qCQylr68-92DvnsfVA [facility] CenterComment on above:Performed By: #### MG, CDP, IOCAL, GLYHGB, BMP ####[facility] [address] [place], [place] [address])[phone] Director: BETITO Gilbertotassium [Moles/Vol]4.2 mmol/LNormal3.7-5.3 [facility] Health SystemComment on above:Performed By: #### MG, CDP, IOCAL, GLYHGB, BMP ####[facility] [address] [place] [address] Lab Director: Jose Miguel Davis MDSodium [Moles/Vol]139 mmol/LNormal 136-145Hol[facility] Health SystemComment on above:Performed By: #### MG, CDP, IOCAL, GLYHGB, BMP ####[facility] [address] [place] [address] Lab Director: Jose Miguel Davis MDUrea nitrogen [Mass/Vol]23 mg/dL Normal8-23Hol[facility] Health SystemComment on above:Performed By: #### MG, CDP, IOCAL, GLYHGB, BMP ####[facility] [address] [place], [place] [address])[phone] Director: Jose Miguel Davis [facility] with Auto Differentialon 68-98-1834Ywuoitpzk (Bld) [#/Vol]0.04 10*3/uLBon [facility] Basophils/100 WBC (Bld)1 %0 - 2 %[facility] HealthEosinophils (Bld) [#/Vol]0.22 10*3/uLBon [facility]ours [facility] HealthEosinophils/100 WBC (Bld)3 %1 - 4 % [facility] HealthErythrocyte distribution width (RBC) [Ratio]16.2 %High 11.8 - 14.4 %Bon SecLeon[facility]. [facility] HealthHematocrit (Bld) [Volume fraction]35.2 %Low 36.3 - 47.1 %[facility] HealthHemoglobin (Bld) [Mass/Vol]10.7 g/dLLow11.9 - 15.1 g/dLBon [facility] Medical CenterImmature granulocytes (Bld) [#/Vol][facility] HealthImmature granulocytes/100 WBC (Bld)0 %0[facility] HealthInterpretation and review of laboratory resultsAbnormalBon [facility] HealthLymphocytes/100 WBC (Bld)19 %Low24 - 43 %[facility] Health Lymphocytes/100 WBC (Bld)1.37 %Bon SecTr[facility] East CampusH (RBC) [Entitic mass] 28.5 pg25.2 - 33.5 pgBon SecTrinity Health System East CampusHC (RBC) [Mass/Vol]30.4 g/dL28.4 - 34.8 g/dLBon SecTrinity Health System East CampusV (RBC) [Entitic vol]93.9 fL82.6 - 102.9 fL [facility] HealthMonocytes/100 WBC (Bld)8 %3 - 12 %[facility] HealthMonocytes/100 WBC (Bld)0.56 %[facility] HealthNeutrophils/100 WBC (Bld)69 %High36 - 65 %Bon SecSelect [facility] Hospital [facility] SouthNucleated RBC/100 WBC (Bld) [Ratio]0 %0.0 per 100 WBCBon SecLeonard J. [facility] HealthPlatelet mean volume (Bld) [Entitic vol]9.6 fL8.1 - 13.5 fLAbrazo Arrowhead Campus [facility] HealthPlatelets (Bld) [#/Vol] 163 10*3/uLBon [facility]ours [facility] [facility] [place], In[facility] HealthRBC (Bld) [#/Vol]3.75 10*6/uLLow3.95 - 5.11 m/uLBon Secours [facility] [place], In[facility] HealthRBC (Bld) [#/Vol]ANISOCYTOSIS PRESENTBon [facility]Leon[facility] HealthSegmented neutrophils/100 WBC (Bld)4.88 %Bon [facility] - Columbus SouthWBC other (Bld) [#/Vol]7.1Bon [facility] CenterBon [facility] with Diffon 64-59-8843Ckp. Basophil0.04 k/uLNormal0.00-0.20[facility] Health SystemComment on above:Performed By: #### MG, CDP, IOCAL, GLYHGB, BMP ####[facility] [address] [place], [place] [id number])[phone] Director: MDAbs. VladimirImm.Granulocyte<0.98Xcsopr3.00-0.30[facility] Health SystemComment on above:Performed By: #### MG, CDP, IOCAL, GLYHGB, BMP ####[facility] Ly[address]mf[address] [place], [place] [address])[phone] Director: Anna Gilbert.Neutrophil (Seg)4.88 k/uLNormal1.50-8.10Hol[facility] Health SystemComment on above:Performed By: #### MG, CDP, IOCAL, GLYHGB, BMP ####[facility] Garn[address]xav[address]je[address] [place], [place] [address])[phone] Director: Jose Miguel Davis MDBasophils/100 WBC (Bld)1 %Normal0-2MVA [facility] Comment on above:Performed By: #### MG, CDP, IOCAL, GLYHGB, BMP ####[facility] Txzmpx[address]mtvkr27[address] [place], [place] [id number])[phone] Director: Jose Miguel Davis MDEosinophils (Bld) [#/Vol]0.22 10*3/uLNormal0.00-0.44[facility] Health SystemComment on above:Performed By: #### MG, CDP, IOCAL, GLYHGB, BMP ####[facility] Dxyuqnsxucxb[address] [place], [place] [id number])[phone] Director: RAUL Gilbertosinophils/100 WBC (Bld)3 %Normal1-4Holzer Health SystemComment on above:Performed By: #### MG, CDP, IOCAL, GLYHGB, BMP ####[facility] I[address]igxbcdc[address] [place] [address] Lab Director: Jose Miguel Davis MDErythrocyte distribution width (RBC) [Ratio]16.2 %High11.8-14.4Hol[facility] Health SystemComment on above:Performed By: #### MG, CDP, IOCAL, GLYHGB, BMP ####[facility] [address]bum[address] [place], [place] [phone] Director: Jose Miguel Davis MDHematocrit (Bld) [Volume fraction]35.2 %Low 36.3-47.1MVA [facility] CenterComment on above:Performed By: #### MG, CDP, IOCAL, GLYHGB, BMP ####[facility] [address] [place] [address] Lab Director: Jose Miguel Davis MDHemoglobin (Bld) [Mass/Vol]10.7 g/dLLow11.9-15.1MVA [facility] CenterComment on above:Performed By: #### MG, CDP, IOCAL, GLYHGB, BMP ####[facility] Rjzivepvbtmd39[address] [place] [address] Lab Director: Jose Miguel Davis MDImmature granulocytes/100 WBC (Bld)0 %Anjkwe0BhvetHolzer Health SystemComment on above:Performed By: #### MG, CDP, IOCAL, GLYHGB, BMP ####[facility] S[address]tk[address] [place], [place] [id number])[phone] Director: Jose Miguel Davis MDLymphocytes (Bld) [#/Vol]1.37 10*3/uLNormal1.10-3.70Hol[facility] Health SystemComment on above: Performed By: #### MG, CDP, IOCAL, GLYHGB, BMP ####[facility] Wkne[address]bujy[address] [place], [place] [phone])[phone] Director: Jose Miguel Davis MDLymphocytes/100 WBC (Bld)19 %Ymq71-49MiwvlHolzer Health SystemComment on above:Performed By: #### MG, CDP, IOCAL, GLYHGB, BMP ####[facility] Ot[address]chxtvad[address] [place], [place] 81196419)[phone] Director: BERTO GilbertCH (RBC) [Entitic mass]28.5 gxBrnhdm27.2-33.5Holzer Health SystemComment on above:Performed By: #### MG, CDP, IOCAL, GLYHGB, BMP ####[facility] Nnbzc[address]ay[address]eg15[address] [place], [place] [id number])[phone] Director: BERTO GilbertCHC (RBC) [Mass/Vol]30.4 g/nLIqelhk16.4-34.8[facility] Health SystemComment on above:Performed By: #### MG, CDP, IOCAL, GLYHGB, BMP ####[facility] War[address]oba26[address] [place], [place] [id number])[phone] Director: BERTO GilbertCV (RBC) [Entitic vol]93.9 dAIqcntj37.6-102.9Hol[facility] Health SystemComment on above:Performed By: #### MG, CDP, IOCAL, GLYHGB, BMP ####[facility] Tyzorxyqbyns[address] [place], [place] [phone])[phone] Director: BERTO Gilbertonocytes (Bld) [#/Vol]0.56 10*3/uLNormal0.10-1.20[facility] Health SystemComment on above:Performed By: #### MG, CDP, IOCAL, GLYHGB, BMP ####[facility] Wwdxvuykozeu[address] [place], [place] [address]2419)[phone] Director: BERTO Gilbertonocytes/100 WBC (Bld)8 %Normal3-12Hol[facility] Health SystemComment on above:Performed By: #### MG, CDP, IOCAL, GLYHGB, BMP ####[facility] H[address]wenexfqwt[address] [place] [phone] Director: Brian Gilbert (Seg)69 %Iapp17-63DhusmHolzer Health SystemComment on above:Performed By: #### MG, CDP, IOCAL, GLYHGB, BMP ####[facility] Gdtfvdsviayr[address] [place] [phone] Director: BEBE Gilbert Automated0.0 per 100 WBCNormal0.0Holzer Health SystemComment on above:Performed By: #### MG, CDP, IOCAL, GLYHGB, BMP ####[facility] R[address]imbz[address] [place] [phone] Director: Stefano Gilbert mean volume (Bld) [Entitic vol]9.6 fLNormal8.1-13.5Holzer Health SystemComment on above:Performed By: #### MG, CDP, IOCAL, GLYHGB, BMP ####[facility] Y[address]jdssirm[address] [place] [address] Lab Director: Sima Gilbert (Bld) [#/Vol]163 10*3/rCAkgmac501-483ZrmqiHolzer Health SystemComment on above:Performed By: #### MG, CDP, IOCAL, GLYHGB, BMP ####[facility] [address]myjianmqsd[address] [place] [address] Lab Director: Jose Miguel Davis MDRBC (Bld) [#/Vol]3.75 10*6/uLLow3.95-5.11Hol[facility] Health SystemComment on above: Performed By: #### MG, CDP, IOCAL, GLYHGB, BMP ####[facility] [address]es[address] [place] [address] Lab Director: JEANETTE Gilbert morphology finding Nom (Bld)ANISOCYTOSIS PRESENTNormalHolzer Health System Comment on above:Performed By: #### MG, CDP, IOCAL, GLYHGB, BMP ####[facility] Czsv[address]qcwlcui[address] [place], [place] [address]08 Lab Director: FAIZA GilbertBC (Bld) [#/Vol]7.1 10*3/uLNormal3.5-11.3[facility] Davies CampusComment on above:Performed By: #### MG, CDP, IOCAL, GLYHGB, BMP ####[facility] [address]wfthh[address] [place] [address] Lab Director: Kiah Gilbertium, Ionicon 45-49-3085Ikvjsmv [Moles/Vol]1.10 mmol/LLow1.13-1.33 [facility] Health SystemComment on above:Performed By: #### MG, CDP, IOCAL, GLYHGB, BMP ####[facility] Z[address]aff[address]hs[address] [place] [address] Lab Director: Kiah Gilbertium, Ionizedon 04-13-2025 Calcium.ionized (Bld) [Moles/Vol]1.10 mmol/LLow1.13 - 1.33 mmol/LBon [facility] CenterInterpretation and review of laboratory resultsAbnormalBon [facility] CenterBon [facility] CenterGlucose,Whole Bloodon 88-21-5747Ocmqjff [Mass/Vol]223 mg/xSVtst82-766ZnjpeHolzer Health SystemGlucose [Mass/Vol] 192 mg/tRFklv40-006SjeqxHolzer Health SystemHemoglobin A1Con 04-13-2025 Average glucose Estimated from glycated hemoglobin (Bld) [Mass/Vol]171 mg/dLBon [facility] CenterComment on above:The ADA and AACC recommend providing the estimated average glucose result to permit better patient understanding of their HBA1c result. HbA1c (Bld) [Mass fraction]7.6 %High4.0 - 6.0 %[facility] Interpretation and review of laboratory resultsAbnormalBon [facility] Bon [facility] CenterGlucose [Mass/Vol]171 mg/dLNoalHolzer Health SystemComment on above:Result Comment: The ADA and AACC recommend providing the estimated average glucose result to permit better patient understanding of their HBA1c result.Performed By: #### MG, CDP, IOCAL, GLYHGB, BMP ####[facility] V[address]sj[address]owteq[address] [place], [place] 15[address]08 Lab Director: Jose Miguel Davis MDHbA1c (Bld) [Mass fraction]7.6 % High4.0-6.0Hol[facility] Health SystemComment on above:Performed By: #### MG, CDP, IOCAL, GLYHGB, BMP ####[facility] [address]ir[address] [place], [place] 5128908 Lab Director: Baljinder Gilbertgnesiumon 04-13-2025 Magnesium [Mass/Vol]1.7 mg/dL1.6 - 2.4 mg/dLBon [facility] CenterMagnesium [Mass/Vol]1.7 mg/dLNormal1.6-2.4[facility] Health SystemComment on above:Performed By: #### MG, CDP, IOCAL, GLYHGB, BMP ####[facility] Fzmy[address]krmdcgj[address] [place], [place] 4206608 Lab Director: Jose Miguel Davis MDNo Panel Informationon 27-40-9686Xcj [facility] CenterPO Glucose Fingerstickon 85-28-4823Zzrjxpu [Mass/Vol]223 mg/mGXgnm31 - 105 mg/dLBon [facility] Interpretation and review of laboratory resultsAbnormCJW Medical Center Bon [facility] CenterGlucose [Mass/Vol]192 mg/cSQntp41 - 105 mg/dLBon [facility] CenterInterpretation and review of laboratory resultsAbnormWellmont Health SystemBasic Metab w/rfx MGon 85-72-8400Hfhqs gap [Moles/Vol]13 mmol/LNormal9-16Hol[facility] Health SystemComment on above: Performed By: #### BMPX ####[facility] [address]ma[address]pdb[address] [place], [place] [id number])[phone] Director: LAURI Gilbertalcium [Mass/Vol]8.4 mg/dLLow 8.6-10.4[facility] Health SystemComment on above:Performed By: #### BMPX ####[facility] Fhvtqhfyjdtp[address] [place], [place] [id number])[phone] Director: Jose Miguel Davis MDChloride [Moles/Vol]98 mmol/WCluaqc84-048IrdebHolzer Health SystemComment on above:Performed By: #### BMPX ####[facility] Kh[address]zecuviop[address] [place], [place] [address])[phone] Director: Jose Miguel Davis MDCO2 [Moles/Vol]26 mmol/JFtfjas13-01YtcglHolzer Health System Comment on above:Performed By: #### BMPX ####[facility] Zpf[address]ybvithr[address] [place], [place] 15204419)[phone] Director: LAURI Gilbertreatinine [Mass/Vol]1.2 mg/dLHigh0.6-0.9[facility] Health SystemComment on above: Performed By: #### BMPX ####[facility] Mcbvznjfzljb08[address] [place], [place] [address])[phone] Director: Jose Miguel Davis MDGFR/1.73 sq M.predicted among non-blacks MDRD (S/P/Bld) [Vol rate/Area]47 mL/min/{1.73_m2}Low>60Hol[facility] Health SystemComment on above:Result Comment: These results are not intended for [...] or following therapy that affects renal tubular secretion.Performed By: #### BMPX ####[facility] [address]ax[address]shfnk[address] [place], [place] [address])[phone] Director: Jose Miguel Davis MDGlucose [Mass/Vol]265 mg/bYSwuc77-27XrrciVA [facility] Comment on above:Performed By: #### BMPX ####[facility] U[address]zg[address]zztnc[address] [place], [place] [address])[phone] Director: BETITO Gilbertotassium [Moles/Vol]3.8 mmol/LNormal3.7-5.3Mkettering health springfieldy Davies CampusComment on above:Performed By: #### BMPX ####[facility] Vlvigsudrqqq[address] [place], [place] [address])[phone] Director: ABENR Gilbertodium [Moles/Vol]137 mmol/L Sjkege835-903SenffHolzer Health SystemComment on above:Performed By: #### BMPX ####[facility] Nmvbrysepgjd66[address] [place], [place] [id number])[phone] Director: Jose Miguel Davis MDUrea nitrogen [Mass/Vol]27 mg/dLHigh8-23[facility] Health SystemComment on above:Performed By: #### BMPX ####[facility] Dysiqhodccoi[address] [place], [place] [address])[phone] Director: Jose Miguel Davis MDBabaptist health paducah Metabolic Panelon 19-88-9898Ydzoy gap [Moles/Vol]13 mmol/L9 - 16 mmol/LBon Secours Mercy HealthCalcium [Mass/Vol]8.5 mg/dLLow8.6 - 10.4 mg/dLBon [facility]ours [facility] HealthChloride [Moles/Vol]97 mmol/LLow98 - 107 mmol/LBon [facility]ours [facility] HealthCO2 [Moles/Vol]24 mmol/L20 - 31 mmol/LBon [facility] Health Creatinine [Mass/Vol]1.1 mg/dLHigh0.6 - 0.9 mg/dLBon Secours Mer[facility] HealthEst, Glom Filt Fils50Cpv- PINFBon [facility] CenterComment on above: These results are not intended for use in patients <18 years of age. eGFR results are calculated without a race factor using the 202 CKD-EPI equation. Careful clinical correlation is recommended, particularly when comparing to results calculated using previous equations. The CKD-EPI equation is less accurate in patients with extremes of muscle mass, extra-renal metabolism of creatine, excessive creatine ingestion, or following therapy that affects renal tubular secretion. Glucose [Mass/Vol]196 mg/rDLokm13 - 99 mg/dLBon [facility] Interpretation and review of laboratory resultsAbnormalBon [facility] Cubiez Potassium [Moles/Vol]3.9 mmol/L3.7 - 5.3 mmol/LBon [facility] DistrictMy Best [employer] [facility] HospitalSodium [Moles/Vol]134 mmol/SSwn254 - 145 mmol/LBon [facility] HospitalmyLINGO [facility] [place], IncMy [employer] [facility] [facility] HospitalUrea nitrogen [Mass/Vol]27 mg/dLHigh8 - 23 mg/dLBon [facility] CenterBasic Metabolic Panel w/ Reflex to MGon 87-19-4772Cqwve gap [Moles/Vol]13 mmol/L9 - 16 mmol/LBon [facility] DistrictMy [facility] HospitalCalcium [Mass/Vol]8.4 mg/dLLow8.6 - 10.4 mg/dLBon [facility] DistrictMy [facility] HospitalChloride [Moles/Vol]98 mmol/L98 - 107 mmol/LBon [facility] Cubiez CO2 [Moles/Vol]26 mmol/L20 - 31 mmol/LBon [facility] CenterCreatinine [Mass/Vol]1.2 mg/dLHigh0.6 - 0.9 mg/dLBon [facility] JavaJobsEst, Glom Filt Dpit03Lcc- PINFBon [facility] CenterComment on above: These results are not intended [...] therapy that affects renal tubular secretion. Glucose [Mass/Vol]265 mg/vSPuwo75 - 99 mg/dLBon [facility] Interpretation and review of laboratory resultsAbnormalBon [facility] Potassium [Moles/Vol]3.8 mmol/L3.7 - 5.3 mmol/LBon [facility] CenterSodium [Moles/Vol]137 mmol/L136 - 145 mmol/LBon [facility] CenterUrea nitrogen [Mass/Vol]27 mg/dLHigh8 - 23 mg/dLBon [facility] CenterBasic Metabolic Profon 56-00-7422Eccqe gap [Moles/Vol]13 mmol/LNormal9-16 [facility] SystemComment on above:Performed By: #### MG, BMP, IOCAL, CDP ####[facility] [address]xht[address] [place] [address] Lab Director: LAURI Gilbertalcium [Mass/Vol]8.5 mg/dLLow8.6-10.4[facility] Health SystemComment on above:Performed By: #### MG, BMP, IOCAL, CDP ####[facility] [address]relxby2612 [place] [address] Lab Director: LAURI Gilberthloride [Moles/Vol]97 mmol/JIql59-644YffafHolzer Health SystemComment on above:Performed By: #### MG, BMP, IOCAL, CDP ####[facility] Icwtdtpedqve4978 [place] [address] Lab Director: Jose Miguel Davis MDCO2 [Moles/Vol]24 mmol/RPespka66-82PlydsHolzer Health System Comment on above:Performed By: #### MG, BMP, IOCAL, CDP ####[facility] L[address]jcjbnftteg3059 [place] [address] Lab Director: LAURI Gilbertreatinine [Mass/Vol]1.1 mg/dLHigh0.6-0.9[facility] Health SystemComment on above:Performed By: #### MG, BMP, IOCAL, CDP ####[facility] Pqwcyxtokpzc30[address] [facility] [place] [address] Lab Director: Jose Miguel Davis MDGFR/1.73 sq M.predicted among non-blacks MDRD (S/P/Bld) [Vol rate/Area]52 mL/min/{1.73_m2}Low>60[facility] Health SystemComment on above:Result Comment: These results are not intended for [...] or following therapy that affects renal tubular secretion.Performed By: #### MG BMP, IOCAL, CDP ####[facility] [address] [place], [place] [address])[phone] Director: Jose Miguel Davis MDGlucose [Mass/Vol]196 mg/oQYqgf06-50WzrxkVA [facility] CenterComment on above:Performed By: #### MG BMP, IOCAL, CDP ####[facility] [address] [place], [place] [address])[phone] Director: BETITO Gilbertotassium [Moles/Vol]3.9 mmol/LNormal3.7-5.3MVA [facility] CenterComment on above:Performed By: #### MG BMP, IOCAL, CDP ####[facility] [address] [place], [place] [address])[phone] Director: ABNER Gilbertodium [Moles/Vol]134 mmol/SEac851-256ZqgpvHolzer Health System Comment on above:Performed By: #### MG, BMP, IOCAL, CDP ####[facility] [address] [place], [place] [address])[phone] Director: Jose Miguel Davis MDUrea nitrogen [Mass/Vol]27 mg/dLHigh8-23[facility] Health SystemComment on above:Performed By: #### MG, BMP, IOCAL, CDP ####[facility] Glemsuyrlwxj1404 [place] [address] lab Director: Jose Miguel Davis [facility] with Auto Differentialon 91-57-2749Eshangodn (Bld) [#/Vol][facility] HealthBasophils/100 WBC (Bld)0 %0 - 2 %[facility] Eosinophils (Bld) [#/Vol][facility] HealthEosinophils/100 WBC (Bld)0 %Low 1 - 4 %[facility] HealthErythrocyte distribution width (RBC) [Ratio]16.2 %High11.8 - 14.4 %[facility] HealthHematocrit (Bld) [Volume fraction]35.8 %Low36.3 - 47.1 %[facility] HealthHemoglobin (Bld) [Mass/Vol]10.9 g/dLLow 11.9 - 15.1 g/dLBon Secours Mercy HealthImmature granulocytes (Bld) [#/Vol]0.04 10*3/uLBon [facility]ours [facility] HealthImmature granulocytes/100 WBC (Bld)0 %0[facility] HealthInterpretation and review of laboratory resultsAbnormalBon [facility]ours [facility]cy HealthLymphocytes/100 WBC (Bld)15 %Low24 - 43 %[facility] HealthLymphocytes/100 WBC (Bld)1.52 %[facility] HealthH (RBC) [Entitic mass]28.9 pg25.2 - 33.5 pgBon Secours Mercy HealthHC (RBC) [Mass/Vol]30.4 g/dL 28.4 - 34.8 g/dLBon Secours Mercy HealthV (RBC) [Entitic vol]95 fL82.6 - 102.9 fLBon Secours Mercy HealthMonocytes/100 WBC (Bld)7 %3 - 12 %[facility] HealthMonocytes/100 WBC (Bld)0.7 %[facility] HealthNeutrophils/100 WBC (Bld)78 %High36 - 65 %[facility] HealthNucleated RBC/100 WBC (Bld) [Ratio]0 %0.0 per 100 WBCBon [facility] Medical CenterPlatelet mean volume (Bld) [Entitic vol]9.7 fL8.1 - 13.5 fLBon [facility] Medical CenterPlatelets (Bld) [#/Vol] 177 10*3/uLBon [facility] CenterRBC (Bld) [#/Vol]3.77 10*6/uLLow3.95 - 5.11 m/uLBon [facility] Medical CenterRBC (Bld) [#/Vol]ANISOCYTOSIS PRESENTBon [facility] Medical CenterSegmented neutrophils/100 WBC (Bld)7.67 %Bon [facility] CenterWBC other (Bld) [#/Vol]10Bon [facility] CenterCBC with Diffon 56-45-3771Xdd. Basophil<0.01Voatcy7.00-0.20[facility] SystemComment on above:Performed By: #### MG, BMP, IOCAL, CDP ####[facility] [address] [place], [place] [address])[phone] Director: Anna Gilbert. Eosinophil<0.58Jbavlw7.00-0.44[facility] Comment on above:Performed By: #### MG, BMP, IOCAL, CDP ####[facility] Agsewlpmqsge20[address] [place] [address] Lab Director: Anna Gilbert.Imm.Granulocyte0.04 k/uLNormal0.00-0.30[facility] SystemComment on above:Performed By: #### MG, BMP, IOCAL, CDP ####[facility] Ezcvxy[address]csucz4208 [place] [address] Lab Director: Anna Gilbert.Neutrophil (Seg)7.67 k/uLNormal1.50-8.10[facility] SystemComment on above:Performed By: #### MG, BMP, IOCAL, CDP ####[facility] [address]ag[address]fvtfv[address]908 [place] [address] Lab Director: Jose Miguel Davis MDBasophils/100 WBC (Bld)0 %Normal0-2MVA [facility] Comment on above:Performed By: #### MG, BMP, IOCAL, CDP ####[facility] [address]lerugg[address]ll[address] [place], [place] [address]95419)[phone] Director: Jose Miguel Davis MDEosinophils/100 WBC (Bld)0 %Low1-4[facility] Comment on above:Performed By: #### MG, BMP, IOCAL, CDP ####[facility] [address]yt[address]psxjdfmr[address] [place] [address] Lab Director: Jose Miguel Davis MDErythrocyte distribution width (RBC) [Ratio]16.2 %High11.8-14.4[facility] Health SystemComment on above:Performed By: #### MG, BMP, IOCAL, CDP ####[facility] Yuhqfbkwqaak[address] [place], [place] [id number])[phone] Director: Jose Miguel Davis MDHematocrit (Bld) [Volume fraction]35.8 %Low36.3-47.1 [facility] SystemComment on above:Performed By: #### MG, BMP, IOCAL, CDP ####[facility] Wvsrepmiviab4075 [place], [place] [id number])[phone] Director: Jose Miguel Davis MDHemoglobin (Bld) [Mass/Vol]10.9 g/dLLow11.9-15.1 [facility] SystemComment on above:Performed By: #### MG, BMP, IOCAL, CDP ####[facility] Scfdlixveuju25[address] [place], [place] 68825419)[phone] Director: Jose Miguel Davis MDImmature granulocytes/100 WBC (Bld)0 %Tiuomd1EylqcHolzer Health SystemComment on above:Performed By: #### MG, BMP, IOCAL, CDP ####[facility] [address]humded[address]em[address] [place] [address] Lab Director: Jose Miguel Davis MDLymphocytes (Bld) [#/Vol]1.52 10*3/uLNormal1.10-3.70 [facility] SystemComment on above:Performed By: #### MG, BMP, IOCAL, CDP ####[facility] Ejbbskwnuejk6562 [place] [address] Lab Director: Atul Gilbertmphocytes/100 WBC (Bld)15 %Hlk88-94EbtkxHolzer Health SystemComment on above:Performed By: #### MG, BMP, IOCAL, CDP ####[facility] Ucteeaporilo7788 [place], [place] [address]1419)[phone] Director: BERTO GilbertCH (RBC) [Entitic mass]28.9 xzHyyuat14.2-33.5[facility] Health SystemComment on above:Performed By: #### MG, BMP, IOCAL, CDP ####[facility] Yylbxvuxdupj7705 [place], [place] [address]1419)[phone] Director: BERTO GilbertCHC (RBC) [Mass/Vol]30.4 g/nAIrtmcb37.4-34.8[facility] SystemComment on above:Performed By: #### MG, BMP, IOCAL, CDP ####[facility] [address]tfy[address] [place], [place] [id number])[phone] Director: BERTO GilbertCV (RBC) [Entitic vol]95.0 bDOsndkb86.6-102.9[facility] Health SystemComment on above:Performed By: #### MG, BMP, IOCAL, CDP ####[facility] Fajdhevjoozg2078 [place], [place] [address]19)[phone] Director: BERTO Gilbertonocytes (Bld) [#/Vol]0.70 10*3/uLNormal0.10-1.20[facility] Medical CenterComment on above:Performed By: #### MG, BMP, IOCAL, CDP ####[facility] Iewdtsygibfv[address]36 [place], [place] 42060419)[phone] Director: BERTO Gilbertonocytes/100 WBC (Bld)7 %Normal3-12[facility] Comment on above:Performed By: #### MG, BMP, IOCAL, CDP ####[facility] Wysojlfohtut[address] [place] [address] Lab Director: Julius Gilbertutrophil (Seg)78 %Rmxf21-47ZkamaHolzer Health SystemComment on above:Performed By: #### MG, BMP, IOCAL, CDP ####[facility] Zrmacnuewjdk6082 [place], [place] [address]20419)[phone] Director: Jose Miguel Davis MDNRBC Automated0.0 per 100 WBCNormal0.0[facility] Health SystemComment on above:Performed By: #### MG, BMP, IOCAL, CDP ####[facility] Vufkawknnmnu[address] [place], [place] 90728419)[phone] Director: Anamika Gilberttemoon mean volume (Bld) [Entitic vol]9.7 fLNormal8.1-13.5[facility] Comment on above:Performed By: #### MG, BMP, IOCAL, CDP ####[facility] Ojnrbhykuxax[address] [place], [place] 38081419)[phone] Director: BETITO Gilbertlatelets (Bld) [#/Vol]177 10*3/dPEsgwvj372-751EczzlHolzer Health SystemComment on above:Performed By: #### MG, BMP, IOCAL, CDP ####[facility] Suwikhrifvbt4974 [place] [address] Lab Director: Jose Miguel Davis MDRBC (Bld) [#/Vol]3.77 10*6/uLLow3.95-5.11[facility] SystemComment on above:Performed By: #### MG, BMP, IOCAL, CDP ####[facility] Mdirlppqvvwt4622 [place] [address] Lab Director: JEANETTE Gilbert morphology finding Nom (Bld)ANISOCYTOSIS PRESENTNormalHolzer Health SystemComment on above:Performed By: #### MG, BMP, IOCAL, CDP ####[facility] Qkyypiqyhkqm6067 [place], [place] [id number])[phone] Director: LARON Gilbert (Bld) [#/Vol]10.0 10*3/uLNormal3.5-11.3[facility] Davies CampusComment on above:Performed By: #### MG, BMP, IOCAL, CDP ####[facility] Jnnfzakgyxwl[address] [place], [place] [id number])[phone] Director: Kiah Gilbertium, Ionicon 55-60-6224Cnzndwc [Moles/Vol]1.10 mmol/LLow1.13-1.33 [facility] SystemComment on above:Performed By: #### MG, BMP, IOCAL, CDP ####[facility] Ojayfgmqlwsq4[address] [place], [place] [id number])[phone] Director: Kiah Gilbertium, Ionizedon 54-87-5181Qodvqei.ionized (Bld) [Moles/Vol]1.10 mmol/LLow1.13 - 1.33 mmol/LBon [facility] Interpretation and review of laboratory resultsAbnormalBon [facility] Bon [facility] CenterGlucose,Whole Bloodon 10-09-4259Hsdyisb [Mass/Vol]265 mg/vLEmag43-435VmcssHolzer Health SystemGlucose [Mass/Vol]226 mg/dLHigh 65-105[facility] Health SystemGlucose [Mass/Vol]199 mg/rHEukr37-103RjzelHolzer Health SystemMagnesiumon 23-34-4286Vpovqwxwy [Mass/Vol]1.8 mg/dL 1.6 - 2.4 mg/dLBon [facility] CenterMagnesium [Mass/Vol]1.8 mg/dLNormal 1.6-2.4Holzer Health SystemComment on above:Performed By: #### MG, BMP, IOCAL, CDP ####[facility] [address] [place] [phone] Director: Jose Miguel Davis MDNo Panel Informationon 95-92-6222Dxv [facility] Glucose Fingerstickon 93-47-2328Khcffwy [Mass/Vol]265 mg/dLHigh 65 - 105 mg/dLBon [facility] CenterInterpretation and review of laboratory resultsAbnormalCentra Lynchburg General HospitalGlucose [Mass/Vol]226 mg/qTIrup46 - 105 mg/dLBon [facility] CenterInterpretation and review of laboratory resultsAbnormalCentra Lynchburg General HospitalGlucose [Mass/Vol]199 mg/mVWvbs75 - 105 mg/dLBon [facility] Interpretation and review of laboratory resultsAbnormCJW Medical Center Bon [facility] CenterPortable XR Chest AP single viewon . Mild pulmonary edema with small left pleural effusion. 2. Unchanged band like linear opacity in the right upper lobe, which may represent atelectasis or scarring. MHPN RIS CONSOLIDATEDEXAMINATION: ONE XRAY VIEW OF THE CHEST 04/12/2025 11:01 am COMPARISON: Chest radiograph 03/10/2025 HISTORY: ORDERING SYSTEM PROVIDED HISTORY: low O2 sats TECHNOLOGIST PROVIDED HISTORY: low O2 sats Reason for Exam: uprt port chest FINDINGS: Mild pulmonary edema with small left pleural effusion. Unchanged band like linear opacity in the right upper lobe. No pneumothorax. Unchanged cardiomegaly. No acute osseous Luis MHPN Sasha Cardona MD - 04/12/2025 EXAMINATION: ONE XRAY VIEW [...] lobe, which may represent atelectasis or scarring. [facility] HealthRadiology Study observation (narrative)[facility] NovariantCarilion Roanoke Memorial HospitalPortable XR Chest AP single viewOrdered By: Sasha Arellano on [id number] [facility] [employer] Work Phone: SURGICAL PATHOLOGY REPORTon [id number] Pathology ReportPath Number: [id number] -- Diagnosis -- GALLBLADDER, CHOLECYSTECTOMY: - CHRONIC [...] lesions or periductal lymph nodes are identified. Internal Sales sections 1c. aria Avila/se:04/11/2025 Microscopic Description Microscopic examination performed. Processing Lab: [address] [address] Interpretation Performed at [address] [address] SURGICAL PATHOLOGY CONSULTATION Patient Name: TOSHA MCNEAL [facility] Rec: [id number] [facility] ANATOMIC PATHOLOGY [facility]. [place], [place] [address] bon [facility] Leigh HospitalOpen-Xchange Salem City HospitalXR CHEST PORTABLEon [id number] CHEST PORTABLEEXAMINATION: ONE XRAY VIEW OF THE CHEST 04/12/2025 [...] Signed by: Sasha Arellano MD 04/12/25 Final resultNormalHolzer Health SystemBasic Metabolic Panelon 48-67-7751Zbfrv gap [Moles/Vol]14 mmol/L9 - 16 mmol/LBon [facility] General HospitalOncolytics Biotech Calcium [Mass/Vol]8.6 mg/dL8.6 - 10.4 mg/dLBon [facility] HospitalOncolytics BiotechChloride [Moles/Vol]101 mmol/L98 - 107 mmol/LBon [facility] HospitalOncolytics BiotechCO2 [Moles/Vol]25 mmol/L20 - 31 mmol/LBon [facility] HospitalOncolytics BiotechCreatinine [Mass/Vol]0.9 mg/dL0.6 - 0.9 mg/dLBon [facility] HospitalOncolytics BiotechEst, Glom Filt Rate67- PINFBon [facility] JavaJobsComment on above: These results are not intended [...] therapy that affects renal tubular secretion. Glucose [Mass/Vol]216 mg/nCGyfd12 - 99 mg/dLBon [facility] HealthPotassium [Moles/Vol]4.1 mmol/L3.7 - 5.3 mmol/LBon [facility] HealthSodium [Moles/Vol] 140 mmol/L136 - 145 mmol/LBon [facility] CenterUrea nitrogen [Mass/Vol]18 mg/dL8 - 23 mg/dLBon [facility] CenterBasic Metabolic Profon 60-11-0927Acacm gap [Moles/Vol]14 mmol/LNormal9-16Holzer Health SystemComment on above:Performed By: #### BMP, MG, CDP, IOCAL, LIVP ####[facility] [address] [place], [place] [address])[phone] Director: LAURI Gilbertalcium [Mass/Vol]8.6 mg/dLNormal8.6-10.4Holzer Health SystemComment on above:Performed By: #### BMP, MG, CDP, IOCAL, LIVP ####[facility] [address] [place], [place] [address])[phone] Director: LAURI Gilberthloride [Moles/Vol]101 mmol/THhdsfd83-421LwjgrHolzer Health SystemComment on above:Performed By: #### BMP, MG, CDP, IOCAL, LIVP ####[facility] [address] [place], [place] [address])[phone] Director: Jose Miguel Davis MDCO2 [Moles/Vol]25 mmol/ZSrnvpz40-26UsdgrHolzer Health SystemComment on above: Performed By: #### BMP, MG, CDP, IOCAL, LIVP ####[facility] [address] [place], [place] [address])[phone] Director: Jose Miguel Davis MDCreatinine [Mass/Vol]0.9 mg/dLNormal0.6-0.9Holzer Health SystemComment on above:Performed By: #### BMP, MG, CDP, IOCAL, LIVP ####[facility] [address] [place], [place] [address])[phone] Director: Jose Miguel Davis MDGFR/1.73 sq M.predicted among non-blacks MDRD (S/P/Bld) [Vol rate/Area]67 mL/min/{1.73_m2}Normal>60Holzer Health SystemComment on above:Result Comment: These results are not intended for [...] or following therapy that affects renal tubular secretion.Performed By: #### BMP, MG, CDP, IOCAL, LIVP ####[facility] [address] [place] [phone] Director: Jose Miguel Davis MDGlucose [Mass/Vol]216 mg/yKHkmo94-15DrsdkVA [facility] Healthcare CenterComment on above:Performed By: #### BMP, MG, CDP, IOCAL, LIVP ####[facility] [address] [place], [place] [address])[phone] Director: BETITO Gilbertotassium [Moles/Vol]4.1 mmol/LNormal3.7-5.3 [facility] Health SystemComment on above:Performed By: #### BMP, MG, CDP, IOCAL, LIVP ####[facility] [address] [place], [place] [phone] Director: ABNER Gilbertodium [Moles/Vol]140 mmol/KLrauvv842-049 [facility] Health SystemComment on above:Performed By: #### BMP, MG, CDP, IOCAL, LIVP ####[facility] [address] [place] [phone] Director: Jose Miguel Davis MDUrea nitrogen [Mass/Vol]18 mg/dLNormal8-23 [facility] Health SystemComment on above:Performed By: #### BMP, MG, CDP, IOCAL, LIVP ####[facility] [address] [place] [phone] Director: Jose Miguel Davis [facility] with Auto Differentialon 04-11-2025 Basophils (Bld) [#/Vol]Bon SecSelect [facility] Special[facility] Hospital - Columbus SouthBasophils/100 WBC (Bld)0 %0 - 2 % [facility] SecSelect Medical Specialty Hospital - Columbus SouthEosinophils (Bld) [#/Vol][facility] Eosinophils/100 WBC (Bld)0 %Low1 - 4 %Centra HealthErythrocyte distribution width (RBC) [Ratio]15.9 %High11.8 - 14.4 %[facility] Hematocrit (Bld) [Volume fraction]37.9 %36.3 - 47.1 %[facility] Hemoglobin (Bld) [Mass/Vol]11.8 g/dLLow11.9 - 15.1 g/dLBon SecSelect [facility] Immature granulocytes (Bld) [#/Vol]0.05 10*3/uLBon SecSelect Medical Specialty Hospital - Columbus SouthImmature granulocytes/100 WBC (Bld)0 %0Cent[facility] HealthInterpretation and review of laboratory resultsAbnormalBon [facility] Medical CenterLymphocytes/100 WBC (Bld)9 %Low24 - 43 %[facility]ra HealthLymphocytes/100 WBC (Bld)1.1 %[facility]aks HospitalH (RBC) [Entitic mass]28.5 pg25.2 - 33.5 pgBon [facility] HospitalHC (RBC) [Mass/Vol]31.1 g/dL28.4 - 34.8 g/dLBon [facility] Memorial HospitalV (RBC) [Entitic vol]91.5 fL82.6 - 102.9 fLBon SecLeonard J. Chabert Medical Center HealthMonocytes/100 WBC (Bld)5 %3 - 12 %[facility] SecLeonard J. Chabert Medical Center HealthMonocytes/100 WBC (Bld)0.54 %[facility] SecSelect Medical Specialty Hospital - Columbus SouthNeutrophils/100 WBC (Bld)86 %High36 - 65 %[facility] SecSelect Medical Specialty Hospital - Columbus SouthNucleated RBC/100 WBC (Bld) [Ratio]0 %0.0 per 100 WBCAbrazo Arrowhead Campus SecSelect Medical Specialty Hospital - Columbus SouthPlatelet mean volume (Bld) [Entitic vol]9.7 fL8.1 - 13.5 fLCentra HealthPlatelets (Bld) [#/Vol]181 10*3/uLCentra HealthRBC (Bld) [#/Vol]4.14 10*6/uL3.95 - 5.11 m/uLCentra HealthRBC (Bld) [#/Vol] ANISOCYTOSIS PRESENTCentra HealthSegmented neutrophils/100 WBC (Bld) 9.96 %HighCentra HealthWBC other (Bld) [#/Vol]11.7HChesapeake Regional Medical CenterCB with Diffon [id number]. Basophil<0.03 Normal0.00-0.20Holzer Health SystemComment on above:Performed By: #### BMP, MG, CDP, IOCAL, LIVP ####[facility] [address] [place], [place] [address])[phone] Director: Anna Gilbert. Eosinophil<0.03Normal 0.00-0.44Holzer Health SystemComment on above:Performed By: #### BMP, MG, CDP, IOCAL, LIVP ####[facility] [address] [place], [place] [address])[phone] Director: MDAbs. VladimirImm.Granulocyte0.05 k/uL Normal0.00-0.30Hol[facility] Health SystemComment on above:Performed By: #### BMP, MG, CDP, IOCAL, LIVP ####[facility] [address] [place], [place] [phone] Director: Anna Gilbert.Neutrophil (Seg)9.96 k/uL High1.50-8.10Holzer Health SystemComment on above:Performed By: #### BMP, MG, CDP, IOCAL, LIVP ####[facility] [address] [place], [place] [phone] Director: Jose Miguel Davis MDBasophils/100 WBC (Bld)0 % Normal0-2[facility] Davies CampusComment on above:Performed By: #### BMP, MG, CDP, IOCAL, LIVP ####[facility] [address] [place] [address] Lab Director: Jose Miguel Davis MDEosinophils/100 WBC (Bld)0 % Low1-4[facility] Davies CampusComment on above:Performed By: #### BMP, MG, CDP, IOCAL, LIVP ####[facility] [address] [place] [phone] Director: Jose Miguel Davis MDErythrocyte distribution width (RBC) [Ratio]15.9 %High11.8-14.4Holzer Health SystemComment on above: Performed By: #### BMP, MG, CDP, IOCAL, LIVP ####[facility] [address] [place] [address] Lab Director: Jose Miguel Davis MDHematocrit (Bld) [Volume fraction]37.9 %Gcyjpw96.3-47.1Mkettering health springfieldy Davies CampusComment on above:Performed By: #### BMP, MG, CDP, IOCAL, LIVP ####[facility] [address] [place] [address] Lab Director: Jose Miguel Davis MD Hemoglobin (Bld) [Mass/Vol]11.8 g/dLLow11.9-15.1Mkettering health springfieldy [facility] Comment on above:Performed By: #### BMP, MG, CDP, IOCAL, LIVP ####[facility] [address] [place] [address] Lab Director: Jose Miguel Davis MDImmature granulocytes/100 WBC (Bld)0 %Vepkco1EnnadHolzer Health SystemComment on above:Performed By: #### BMP, MG, CDP, IOCAL, LIVP ####[facility] [address] [place] [address] Lab Director: Jose Miguel Davis MDLymphocytes (Bld) [#/Vol]1.10 10*3/uLNormal1.10-3.70Holzer Health SystemComment on above:Performed By: #### BMP, MG, CDP, IOCAL, LIVP ####[facility] [address] [place] [address] Lab Director: Atul Gilbertmphocytes/100 WBC (Bld)9 %Qlf83-29XvfoaHolzer Health SystemComment on above:Performed By: #### BMP, MG, CDP, IOCAL, LIVP ####[facility] [address] [place] [address] Lab Director: BERTO GilbertCH (RBC) [Entitic mass]28.5 ycUfbcym54.2-33.5Holzer Health SystemComment on above:Performed By: #### BMP, MG, CDP, IOCAL, LIVP ####[facility] [address] [place], [place] [phone] Director: BERTO GilbertCHC (RBC) [Mass/Vol]31.1 g/lKDfuknv45.4-34.8Hol[facility] Health SystemComment on above:Performed By: #### BMP, MG, CDP, IOCAL, LIVP ####[facility] [address] [place], [place] [phone] Director: BERTO GilbertCV (RBC) [Entitic vol]91.5 lEYqxyyo31.6-102.9Hol[facility] Health SystemComment on above:Performed By: #### BMP, MG, CDP, IOCAL, LIVP ####[facility] [address] [place] [address] [phone] Director: BERTO Gilbertonocytes (Bld) [#/Vol]0.54 10*3/uLNormal0.10-1.20 [facility] SystemComment on above:Performed By: #### BMP, MG, CDP, IOCAL, LIVP ####[facility] [address] [place] [phone] Director: BERTO Gilbertonocytes/100 WBC (Bld)5 %Normal3-12Hol[facility] Health SystemComment on above:Performed By: #### BMP, MG, CDP, IOCAL, LIVP ####[facility] [address] [place] [phone] Director: Jose Miguel Davis MDNeutrophil (Seg)86 %Lqxn89-07YkfexHolzer Health SystemComment on above:Performed By: #### BMP, MG, CDP, IOCAL, LIVP ####[facility] [address] [place] [address] Lab Director: Jose Miguel Davis MDNRBC Automated0.0 per 100 WBCNormal0.0Holzer Health SystemComment on above:Performed By: #### BMP, MG, CDP, IOCAL, LIVP ####[facility] [address] [place] [address] Lab Director: BETITO Gilbertlatelet mean volume (Bld) [Entitic vol]9.7 fLNormal 8.1-13.5Hol[facility] Health SystemComment on above:Performed By: #### BMP, MG, CDP, IOCAL, LIVP ####[facility] [address] [place] [phone] Director: BETITO Gilbertlatelets (Bld) [#/Vol]181 10*3/uL Ltaubz983-648IjntjHolzer Health SystemComment on above:Performed By: #### BMP, MG, CDP, IOCAL, LIVP ####[facility] [address] [place] [address] Lab Director: Jose Miguel Davis MDRBC (Bld) [#/Vol]4.14 10*6/uL Normal3.95-5.11[facility] Health SystemComment on above:Performed By: #### BMP, MG, CDP, IOCAL, LIVP ####[facility] [address] [place], [place] [phone] Director: JEANETTE Gilbert morphology finding Nom (Bld)ANISOCYTOSIS PRESENTNormalHolzer Health SystemComment on above: Performed By: #### BMP, MG, CDP, IOCAL, LIVP ####[facility] [address] [place], [place] [phone] Director: LARON Gilbert (Bld) [#/Vol]11.7 10*3/uLHigh3.5-11.3[facility] Davies CampusComment on above: Performed By: #### BMP, MG, CDP, IOCAL, LIVP ####[facility] [address] [place], [place] [phone] Director: Kiah Gilbertium, Ionicon 18-27-4616Usedang [Moles/Vol]1.06 mmol/LLow1.13-1.33Hol[facility] Health SystemComment on above:Performed By: #### BMP, MG, CDP, IOCAL, LIVP ####[facility] [address] [place] [address] Lab Director: Kiah Gilbertium, Ionizedon 56-99-6890Ciwcuzb.ionized (Bld) [Moles/Vol]1.06 mmol/LLow1.13 - 1.33 mmol/LBon [facility] CenterInterpretation and review of laboratory resultsAbnormalBon [facility] CenterBon [facility] Glucose,Whole Bloodon 37-75-8139Krjxazd [Mass/Vol]302 mg/zRJmat66-890FlgxrHolzer Health SystemHepatic Function Panelon 81-38-5393Fubrfml [Mass/Vol]3.4 g/dLLow3.5 - 5.2 g/dLBon [facility] CenterAlbumin/Globulin [Mass ratio]1.4 {ratio}1.0 - 2.5Bon [facility] Medical CenterALP [Catalytic activity/Vol]59 U/L35 - 104 U/LBon [facility] CenterALT [Catalytic activity/Vol]35 U/L10 - 35 U/LBon [facility] HealthAST [Catalytic activity/Vol]73 U/LHigh10 - 35 U/LBon [facility] CenterBilirubin [Mass/Vol]1 mg/dL0.0 - 1.2 mg/dLBon [facility] Bilirubin.direct [Mass/Vol]0.4 mg/dLHigh0.0 - 0.2 mg/dLBon [facility] Bilirubin.indirect [Mass/Vol]0.6 mg/dL0.0 - 1.0 mg/dLBon [facility] Globulin (S) [Mass/Vol]2.5 g/dLBon [facility] CenterProtein [Mass/Vol]5.9 g/dLLow6.6 - 8.7 g/dLBon [facility] Medical CenterLiver Profileon 09-55-9136Uvsfqir [Mass/Vol]3.4 g/dLLow3.5-5.2[facility] Davies CampusComment on above: Performed By: #### BMP, MG, CDP, IOCAL, LIVP ####[facility] [address] [place] [address] Lab Director: Jose Miguel Davis MDAlbumin/Glob Ratio1.1Wqshtd4.0-2.5Hol[facility] Health SystemComment on above:Performed By: #### BMP, MG, CDP, IOCAL, LIVP ####[facility] [address] [place] [address] Lab Director: Jose Miguel Davis MDAlkaline Phos59 U/LNormal 35-104Holzer Health SystemComment on above:Performed By: #### BMP, MG, CDP, IOCAL, LIVP ####[facility] [address] [place] [phone] Director: Jose Miguel Davis MDALT [Catalytic activity/Vol]35 U/L Hphcrn15-03VwbeqHolzer Health SystemComment on above:Performed By: #### BMP, MG, CDP, IOCAL, LIVP ####[facility] [address] [place], [place] [phone] Director: Jose Miguel Davis MDAST [Catalytic activity/Vol]73 U/GHdwl34-09UgvheHolzer Health SystemComment on above:Performed By: #### BMP, MG, CDP, IOCAL, LIVP ####[facility] [address] [place], [place] [phone] Director: Jose Miguel Davis MDBilirubin [Mass/Vol]1.0 mg/dL Normal0.0-1.2MVA [facility] Healthcare CenterComment on above:Performed By: #### BMP, MG, CDP, IOCAL, LIVP ####[facility] [address]fl[address] [place], [place] [phone])[phone] Director: Jose Miguel Davis MDBilirubin, Indirect0.6 mg/dL Normal0.0-1.0Hol[facility] Health SystemComment on above:Performed By: #### BMP, MG, CDP, IOCAL, LIVP ####[facility] [address]cl[address] [place], [place] [phone] Director: Jose Miguel Davis MDBilirubin.indirect [Mass/Vol] 0.4 mg/dLHigh0.0-0.2MVA [facility] CenterComment on above:Performed By: #### BMP, MG, CDP, IOCAL, LIVP ####[facility] [address] [place], [place] [phone] Director: Jose Miguel Davis MDGlobulin (S) [Mass/Vol]2.5 g/dLNormalHolzer Health SystemComment on above:Performed By: #### BMP, MG, CDP, IOCAL, LIVP ####[facility] [address] [place], [place] [phone] Lab Director: Jose Miguel Davis MDProtein [Mass/Vol]5.9 g/dLLow 6.6-8.7Hol[facility] Health SystemComment on above:Performed By: #### BMP, MG, CDP, IOCAL, LIVP ####[facility] [address] [place] [phone] Director: Baljinder Gilbertgnesiumon 70-79-5640Incxorido [Mass/Vol]1.8 mg/dL1.6 - 2.4 mg/dLBon [facility] Medical CenterMagnesium [Mass/Vol] 1.8 mg/dLNormal1.6-2.4[facility] SystemComment on above:Performed By: #### BMP, MG, CDP, IOCAL, LIVP ####[facility] Sxc[address]bc[address]ifrwl[address] [place], [place] 2350808 Lab Director: Jose Miguel Davis MDNo Panel Informationon 12-50-9121Suebvaaomdkvzz and review of laboratory resultsAbnormWellmont Health SystemPO Glucose Fingerstickon 57-16-5516Jdgnawy [Mass/Vol]302 mg/wHXszc38 - 105 mg/dLBon [facility] CenterInterpretation and review of laboratory resultsAbnormWellmont Health SystemBasic Metabolic Panelon 75-07-0071Mugra gap [Moles/Vol]15 mmol/L9 - 16 mmol/LBon [facility] Medical CenterCalcium [Mass/Vol]8.3 mg/dLLow8.6 - 10.4 mg/dLBon [facility] Medical CenterChloride [Moles/Vol]102 mmol/L98 - 107 mmol/LBon [facility] CenterCO2 [Moles/Vol]26 mmol/L20 - 31 mmol/LBon [facility] Creatinine [Mass/Vol]0.9 mg/dL0.6 - 0.9 mg/dLBon [facility] CenterEst, Glom Filt Rate67- PINFBon [facility] Medical CenterComment on above: These results are not intended [...] therapy that affects renal tubular secretion. Glucose [Mass/Vol]219 mg/tQPpna71 - 99 mg/dLBon [facility] Medical CenterPotassium [Moles/Vol]4 mmol/L3.7 - 5.3 mmol/LBon [facility] Medical CenterComment on above: Specimen hemolysis has exceeded the interference as defined by Ranjith. Value may be falsely increased. Suggest recollection if clinically indicated. Sodium [Moles/Vol]143 mmol/L136 - 145 mmol/LBon [facility] Medical CenterUrea nitrogen [Mass/Vol]16 mg/dL8 - 23 mg/dLBon [facility] CenterBasic Metabolic Profon 37-48-0702Gwuuy gap [Moles/Vol]15 mmol/LNormal9-16[facility] Health SystemComment on above:Performed By: #### CATHERINE AMAYA, CDP ####[facility] [address]wh[address] [place] [address] Lab Director: LAURI Gilbertalcium [Mass/Vol]8.3 mg/dLLow8.6-10.4[facility] Comment on above:Performed By: #### CATHERINE AMAYA, CDP ####[facility] Mgqqvmmgzlrf[address] [place] [address] Lab Director: LAURI Gilberthloride [Moles/Vol]102 mmol/TPjnnir81-417VopvbHolzer Health SystemComment on above:Performed By: #### CATHERINE AMAYA, CDP ####[facility] [address]ahjhzvu[address] [place] [address] Lab Director: LAURI GilbertO2 [Moles/Vol] 26 mmol/LDcshve23-88XmrchHolzer Health SystemComment on above:Performed By: #### MG BMP, CDP ####[employer] [address] [place] [address] Lab Director: LAURI Gilbertreatinine [Mass/Vol]0.9 mg/dL Normal0.6-0.9[facility] Health SystemComment on above:Performed By: #### CATHERINE AMAYA, CDP ####[facility] [address] [place] [address] Lab Director: Jose Miguel Davis MDGFR/1.73 sq M.predicted among non-blacks MDRD (S/P/Bld) [Vol rate/Area]67 mL/min/{1.73_m2}Normal>60MerSutter Medical Center, SacramentoComment on above:Result Comment: These results are not intended for [...] or following therapy that affects renal tubular secretion.Performed By: #### CATHERINE AMAYA, CDP ####[facility] [address] [place] [address] [phone] Director: Jose Miguel Davis MDGlucose [Mass/Vol]219 mg/uGFlww59-76YmtxaSan Luis Obispo General HospitalComment on above:Performed By: #### CATHERINE AMAYA, CDP ####[facility] [address] [place] [address] Lab Director: BETITO Gilbertotassium [Moles/Vol]4.0 mmol/LNormal3.7-5.3Mer[facility] Davies CampusComment on above:Result Comment: Specimen hemolysis has exceeded the interference as defined by Ranjith. Value may be falsely increased. Suggest recollection if clinically indicated.Performed By: #### CATHERINE AMAYA, CDP ####[facility] [address] [place] [address] [phone] Director: ABNER Gilbertodium [Moles/Vol]143 mmol/L Gqwyjl077-299Bdytq [facility] Medical CenterComment on above:Performed By: #### MGCATHERINE, CDP ####[facility] [address] [place], [place] 5083308 Lab Director: Jose Miguel Davis MDUrea nitrogen [Mass/Vol]16 mg/dLNormal8-23Hol[facility] Health SystemComment on above:Performed By: #### CATHERINE AMAYA, CDP ####[facility] [address]zo[address] [place], [place] 1876608 lab Director: Jose Miguel Davis [facility] OKLAHOMA CITYBC with Auto Differentialon [id number] (Bld) [#/Vol]0.05 10*3/uLBon [facility] Health Basophils/100 WBC (Bld)1 %0 - 2 %Bon SecLeonard J. [facility] HealthEosinophils (Bld) [#/Vol][facility] CenterEosinophils/100 WBC (Bld)0 %Low1 - 4 %[facility] HospitalErythrocyte distribution width (RBC) [Ratio]16.1 %High11.8 - 14.4 % Bon SecSelect [facility] Special[facility] Hospital - Columbus SouthHematocrit (Bld) [Volume fraction]40.8 %36.3 - 47.1 %[facility], [facility] HospitalHemoglobin (Bld) [Mass/Vol]13 g/dL11.9 - 15.1 g/dLBon SecSelect [facility] Special[facility] Hospital - Columbus SouthImmature granulocytes (Bld) [#/Vol]0.05 10*3/uLBon [facility], [facility] HospitalImmature granulocytes/100 WBC (Bld)1 %Jyoc4Rth [facility] Interpretation and review of laboratory resultsAbnormalBon SecLeon[facility]. [facility] Health Lymphocytes/100 WBC (Bld)13 %Low24 - 43 %[facility], [facility] HospitalLymphocytes/100 WBC (Bld)1.24 %[facility], [facility] HealthH (RBC) [Entitic mass]29.2 pg25.2 - 33.5 pgBon SecTrinity Health System East CampusHC (RBC) [Mass/Vol]31.9 g/dL28.4 - 34.8 g/dLBon Secours Mercy HealthMCV (RBC) [Entitic vol]91.7 fL82.6 - 102.9 fLCentra HealthMonocytes/100 WBC (Bld)2 %Low3 - 12 %[facility] Monocytes/100 WBC (Bld)0.2 %[facility] HealthNeutrophils/100 WBC (Bld)83 %High36 - 65 %[facility] HealthNucleated RBC/100 WBC (Bld) [Ratio]0 %0.0 per 100 WBCBon [facility] Medical CenterPlatelet mean volume (Bld) [Entitic vol]9.2 fL8.1 - 13.5 fLWythe County Community Hospital HealthPlatelets (Bld) [#/Vol]195 10*3/uLBon SecSelect Medical Specialty Hospital - Columbus SouthRBC (Bld) [#/Vol]4.45 10*6/uL3.95 - 5.11 m/uLBon SecSelect Medical Specialty Hospital - Columbus SouthRBC (Bld) [#/Vol]ANISOCYTOSIS PRESENTBon [facility] Segmented neutrophils/100 WBC (Bld)8.09 %Bon [facility] Medical CenterWBC other (Bld) [#/Vol]9.7Bon SecSelect [facility] Hospital - [facility] SouthBon SecSelect Medical Specialty Hospital - Columbus SouthCBC with Diffon [id number]. Basophil0.05 k/uLNormal0.00-0.20[facility] Comment on above:Performed By: #### MG, BMP, CDP ####[employer] [address] [place] [address] Lab Director: Anna Gilbert. Eosinophil<0.67Exyotc6.00-0.44Hol[facility] Health SystemComment on above: Performed By: #### MG, BMP, CDP ####[employer] [address] [place], [place] [address] lab Director: Anna Gilbert.Imm.Granulocyte0.05 k/uL Normal0.00-0.30Holzer Health SystemComment on above:Performed By: #### MG, BMP, CDP ####[employer] [address]zrjwoohhs[address] [place], [place] [id number])[phone] Director: Anna Gilbert.Neutrophil (Seg)8.09 k/uL Normal1.50-8.10Holzer Health SystemComment on above:Performed By: #### MG BMP, CDP ####[facility] C[address]asq[address] [place], [place] [id number])[phone] Director: Jose Miguel Davis MDBasophils/100 WBC (Bld)1 % Normal0-2MVA [facility] CenterComment on above:Performed By: #### MG, BMP, CDP ####[facility] Blmcwrvkvifs5[address] [place], [place] [address])[phone] Director: Jose Miguel Davis MDEosinophils/100 WBC (Bld)0 %Low1-4Holzer Health SystemComment on above:Performed By: #### CATHERINE AMAYA, CDP ####[facility] Fadlvfpgdqhr5005 [place], [place] [address])[phone] Director: Jose Miguel Davis MDErythrocyte distribution width (RBC) [Ratio]16.1 %High11.8-14.4Holzer Health SystemComment on above:Performed By: #### CATHERINE AMAYA, CDP ####[facility] Ithjqxhkilht85[address] [place], [place] [address])[phone] Director: Jose Miguel Davis MDHematocrit (Bld) [Volume fraction]40.8 %Dybzep27.3-47.1MVA [facility] CenterComment on above:Performed By: #### MG, BMP, CDP ####[facility] Smzddyjbmrbj8[address] [place], [place] [address])[phone] Director: Jose Miguel Davis MDHemoglobin (Bld) [Mass/Vol]13.0 g/oGLfefoc13.9-15.1MVA [facility] CenterComment on above:Performed By: #### MG, BMP, CDP ####[facility] Unxocgpcciih9052 [place] [address] Lab Director: Jose Miguel Davis MDImmature granulocytes/100 WBC (Bld)1 %Ekqo8GpewhHolzer Health SystemComment on above:Performed By: #### MG, BMP, CDP ####[facility] Bzseboqdvlxe[address]256 [place], [place] [phone])[phone] Director: Jose Miguel Davis MDLymphocytes (Bld) [#/Vol]1.24 10*3/uLNormal1.10-3.70Holzer Health SystemComment on above:Performed By: #### MG, BMP, CDP ####[facility] Ihmjcxgdsbrt8922 [place], [place] 18000419)[phone] Director: Atul Gilbertmphocytes/100 WBC (Bld)13 %Tgy92-54SoyihHolzer Health System Comment on above:Performed By: #### MG, BMP, CDP ####[facility] Xqclcmipudxq3294 [place], [place] [phone])[phone] Director: BERTO GilbertCH (RBC) [Entitic mass]29.2 tfMsnxel34.2-33.5Holzer Health SystemComment on above:Performed By: #### MG, BMP, CDP ####[facility] Czhleeaehtfk8[address] [place], [place] [id number])[phone] Director: BERTO GilbertCHC (RBC) [Mass/Vol]31.9 g/yYLrnehx21.4-34.8Holzer Health SystemComment on above:Performed By: #### MG, BMP, CDP ####[facility] Ovxhirtloagd05[address] [place], [place] [id number])[phone] Director: BERTO GilbertCV (RBC) [Entitic vol]91.7 iMQnlxwa82.6-102.9Holzer Health SystemComment on above:Performed By: #### MG, BMP, CDP ####[facility] Wgrbrttyywwh1632 [place] [address] Lab Director: BERTO Gilbertonocytes (Bld) [#/Vol]0.20 10*3/uLNormal0.10-1.20Holzer Health SystemComment on above:Performed By: #### MG, BMP, CDP ####[facility] Ewgyoebfasbd7984 [place] [address] Lab Director: BERTO Gilbertonocytes/100 WBC (Bld)2 %Low3-12Holzer Health SystemComment on above:Performed By: #### MG, BMP, CDP ####[facility] Hkjsenhswing8773 [place] [address] Lab Director: Narciso Gilbertophil (Seg)83 %Danx07-81 Holzer Health SystemComment on above:Performed By: #### MG, BMP, CDP ####[facility] Gpfkrlkdxayy0267 [place] [address] Lab Director: Jose Miguel Davis MDNRBC Automated0.0 per 100 WBCNormal0.0Holzer Health SystemComment on above:Performed By: #### MG, BMP, CDP ####[facility] Eebtrixfyqxs4579 [place] [address] Lab Director: BETITO Gilbertlatelet mean volume (Bld) [Entitic vol]9.2 fLNormal8.1-13.5Holzer Health SystemComment on above:Performed By: #### MG, BMP, CDP ####[facility] Dgigihodlgbc3937 [place] [address] Lab Director: BETITO Gilbertlatelets (Bld) [#/Vol]195 10*3/cVXkxlxl987-782MalbcHolzer Health SystemComment on above:Performed By: #### MG, BMP, CDP ####[facility] Dsjipwvwnnmf9458 [place] [address] Lab Director: ROSSY GilbertBC (Bld) [#/Vol]4.45 10*6/uLNormal3.95-5.11Holzer Health SystemComment on above:Performed By: #### CATHERINE AMAYA, CDP ####[facility] Nvbyprebbgws5[address] [place] [address] Lab Director: JEANETTE Gilbert morphology finding Nom (Bld)ANISOCYTOSIS PRESENTNormalHolzer Health SystemComment on above:Performed By: #### CATHERINE AMAYA, CDP ####[facility] Vwqncbeumgse6768 [place] [address] Lab Director: FAIZA GilbertBC (Bld) [#/Vol]9.7 10*3/uLNormal3.5-11.3Mer[facility] Davies CampusComment on above:Performed By: #### CATHERINE AMAYA, CDP ####[facility] Pampaabnvlhw2763 [place] [address] Lab Director: Kiah Gilbertium, Ionicon 75-12-5874Jyawdzn [Moles/Vol]1.05 mmol/LLow1.13-1.33 Holzer Health SystemComment on above:Performed By: #### IOCAL ####[facility] Idjfobbvssoj3775 [place] [address] Lab Director: Kiah Gilbertium, Ionizedon 60-89-9524Egeoqox.ionized (Bld) [Moles/Vol] 1.05 mmol/LLow1.13 - 1.33 mmol/LBon [facility] CenterInterpretation and review of laboratory resultsAbnormalCentra HealthBon [facility] Medical CenterGlucose (POC)on 57-65-8768Snmbjto [Mass/Vol]150 mg/pXHysm62-371GvfsyHolzer Health SystemGlucose,Whole Bloodon 59-22-7367Cusqehi [Mass/Vol]199 mg/rNJgtc17-005AovwzHolzer Health SystemGlucose [Mass/Vol]200 mg/dLHigh 65-105MerSutter Medical Center, SacramentoMagnesiumon 30-37-3553Hzlwbtveg [Mass/Vol] 1.1 mg/dLLow1.6 - 2.4 mg/dLBon [facility] Medical CenterMagnesium [Mass/Vol]1.1 mg/dL Low1.6-2.4Holzer Health SystemComment on above:Performed By: #### MG, BMP, CDP ####[facility] Xltrnqdmqvkp0255 [place] [address] [facility] Director: Jose Miguel Davis MDNo Panel Informationon 67-75-5915Odeucuuowmckre and review of laboratory resultsAbnoSiouxland Surgery Center Glucose Fingerstickon 71-53-1710Plbzlvv [Mass/Vol]199 mg/tOPyav64 - 105 mg/dLBon [facility] CenterInterpretation and review of laboratory resultsAbnormalCentra Lynchburg General HospitalGlucose [Mass/Vol]200 mg/eMDnja01 - 105 mg/dLBon [facility] CenterInterpretation and review of laboratory results AbnormalBon [facility] CenterPOCT Glucoseon 26-38-6786Nyztttt [Mass/Vol]150 mg/sHYywj46 - 100 mg/dLBon [facility] Interpretation and review of laboratory resultsAbnoRiverside Behavioral Health Center POTASSIUM (POC)on 62-31-6052Ydbzilxye [Moles/Vol]3.6 mmol/L3.5 - 4.5 mmol/LBon [facility] CenterPREVIOUS SPECIMENon 92-97-1936Dbm [facility] Potassium (POC)on 19-49-1029Zrvmkunyz [Moles/Vol]3.6 mmol/LNormal3.5-4.5Memorial Hospitalurgical Pathology Reporton 77-59-6508Pksefuzy Pathology Report(NOTE) Path Number: [id number] -- Diagnosis -- GALLBLADDER, CHOLECYSTECTOMY: - CHRONIC [...] lesions or periductal lymph nodes are identified. Internal Sales sections 1c. tm Kimberly Avila/se:04/11/2025 Microscopic Description Microscopic examination performed. Processing Lab: [address] [address] Interpretation Performed at [place] [id number] SURGICAL PATHOLOGY CONSULTATION Patient Name: TOSHA MCNEAL [facility] Rec: [id number] [facility] ANATOMIC PATHOLOGY [address] [place] [address]. [address] NoAvita Health System Bucyrus HospitalOffice Visiton 95-16-3890[place]-up [id number] Tosha Mcneal 1950 F Date Provider Department Center 03/26/2025 ALFRED CARRINGTON CARD [facility] Family History Problem Relation Age of Onset Coronary artery disease Father Heart attack Father Family Status - Relation Status Age at Mother Father Sister Alive Level of Service:55499 ME OFFICE/OUTPATIENT ESTABLISHED MOD MDM 30 MIN Reason for Visit and Comments: Congestive Heart Failure [127] Hypertension [649215] Hyperlipidemia [182]NormalUnACMC Healthcare SystemCOMPREHENSIVE METABOLIC PANELon 68-00-4757Ozdljkh [Mass/Vol]4.1 g/dLNormal3.2-5.3PWexner Medical Center Ambulatory PPGComment on above:Performed By: #### CMP #### [facility] ([facility]) [address] [place] [address] VIRALP [Catalytic activity/Vol]62 U/OVzhyrr58-673PhaBfwcbs Hospital Ambulatory PPGComment on above:Performed By: #### CMP #### [facility] ([facility]) [address] [place] [address] VIRALT [Catalytic activity/Vol]32 U/LHigh<=31PWexner Medical Center Ambulatory PPGComment on above:Performed By: #### CMP #### [facility] ([facility]) [address] [place] [address] VIRAnion gap [Moles/Vol]17 mmol/LHigh5-15[facility] Ambulatory PPGComment on above:Performed By: #### CMP #### [facility] ([facility]) [address] [place] [address] VIRAST [Catalytic activity/Vol]31 U/LNormal<=41[facility] Ambulatory PPGComment on above:Performed By: #### CMP #### [facility] ([facility]) [address] [place] [address] VIRBilirubin [Mass/Vol]0.9 mg/dLNormal0.3-1.2PWexner Medical Center Ambulatory PPGComment on above:Performed By: #### CMP #### [facility] ([facility]) [address] [place] [address] VIRCalcium [Mass/Vol]10.1 mg/dLNormal8.5-10.5PWexner Medical Center Ambulatory PPGComment on above:Performed By: #### CMP #### [facility] ([facility]) [address] [place] [address] VIRChloride [Moles/Vol]98 mmol/KLbejev15-171RjkRjwdlf Hospital Ambulatory PPGComment on above:Performed By: #### CMP #### [facility] ([facility]) [address] [place] [address] VIRCO2 [Moles/Vol]28 mmol/SSoregj34-46BhkYeshan Hospital Ambulatory PPGComment on above:Performed By: #### CMP #### [facility] ([facility]) [address] [place] [address] VIRCreatinine [Mass/Vol]0.98 mg/dLNormal0.40-1.00[facility] Ambulatory PPGComment on above:Result Comment: METHOD TRACEABLE TO IDMS STANDARDPerformed By: #### CMP #### [facility] ([facility]) [address] [place] [address] VIRGFR/1.73 sq M.predicted among non-blacks MDRD (S/P/Bld) [Vol rate/Area]60 mL/min/{1.73_m2}Normal>=60[facility] Ambulatory PPGComment on above:Result Comment: Reported eGFR is based on the CKD-EPI 2020 equation that does not use a race coefficient.Performed By: #### CMP #### [facility] ([facility]) [address] [place] [address] VIRGlucose [Mass/Vol]131 mg/gVUwnc48-82AwsRbefjt Hospital Ambulatory PPGComment on above:Performed By: #### CMP #### [facility] ([facility]) [address] [place] [address] VIRPotassium [Moles/Vol]3.9 mmol/LNormal3.5-5.0[facility] Ambulatory PPGComment on above:Performed By: #### CMP #### [facility] ([facility]) [address] [place] [address] VIRProtein [Mass/Vol]7.0 g/dLNormal6.0-8.0[facility] Ambulatory PPGComment on above:Performed By: #### CMP #### [facility] ([facility]) [address] [place] [address] VIRSodium [Moles/Vol]143 mmol/HTrrcnz778-109LpuPxvpnk Hospital Ambulatory PPGComment on above:Performed By: #### CMP #### [facility] ([facility]) [address] [place] [address] VIRUrea nitrogen [Mass/Vol]31 mg/dLHigh5-27[facility] Ambulatory PPGComment on above:Performed By: #### CMP #### [facility] ([facility]) [address] [place] [address] VIRComprehensive metabolic panelon 96-51-9850Dkjygok [Mass/Vol] 4.1 g/dL3.2 - 5.3 g/dLSuburban Community Hospital & [facility] SystemALP [Catalytic activity/Vol]62 U/L 39 - 130 U/LPrGrand River Health Health SystemALT No additional P-5'-P [Catalytic activity/Vol]32 U/LHighNINF - 31 U/[facility] SystemAnion gap [Moles/Vol] 17 mmol/LHigh5 - 15 mmol/LPrGrand River Health Health SystemAST [Catalytic activity/Vol]31 U/LNINF - 41 U/[facility] SystemBilirubin [Mass/Vol]0.9 mg/dL0.3 - 1.2 mg/dLSuburban Community Hospital & [facility] [facility] SystemCalcium [Mass/Vol]10.1 mg/dL8.5 - 10.5 mg/dL [facility] HospitalChloride [Moles/Vol]98 mmol/L98 - 109 mmol/[facility] SystemCO2 [Moles/Vol]28 mmol/L22 - 32 mmol/[facility] System Creatinine [Mass/Vol]0.98 mg/dL0.40 - 1.00 mg/dLSuburban Community Hospital & [facility] [facility] SystemComment on above:METHOD TRACEABLE TO IDNJ STANDARDEGFR Non-Race Afhzfqvow23- PINF [facility] [place] [facility] SystemComment on above:Reported eGFR is based on the CKD-EPI 2020 equation that does not use a race coefficient. Glucose [Mass/Vol]131 mg/oRLsfy67 - 99 mg/dLMercy Health Kings [facility] Hospital Interpretation and review of laboratory resultsAbnormalMercy Health [facility] Hospital Potassium [Moles/Vol]3.9 mmol/L3.5 - 5.0 mmol/LProMedica Health SystemProtein [Mass/Vol]7 g/dL6.0 - 8.0 g/dLSuburban Community Hospital & [facility] [facility] SystemSodium [Moles/Vol]143 mmol/L134 - 146 mmol/LProMedMcCullough-Hyde Memorial HospitalUrea nitrogen [Mass/Vol]31 mg/dL High5 - 27 mg/dLValley Forge Medical Center & HospitalHEMOGLOBIN A1Con 17-82-9676Pammnqf [Mass/Vol]206 mg/dLNoNaval Hospital Oakland Ambulatory PPG Comment on above:Performed By: #### HA1C #### [facility] ([facility]) [address] [place] [address] WSZWgQ9b (Bld) [Mass fraction]8.8 %High4.4-5.6[facility] Ambulatory PPGComment on above:Result Comment: ADA Guidelines Result HgbA1c Normal : less than 5.7 % Prediabetes : 5.7 % to 6.4 % Diabetes : > 6.4 % Use with caution in patients with abnormal hemoglobin variants as the half-life of red blood cells and in vivo glycation rates are affected.Performed By: #### HA1C #### [facility] ([facility]) [address] [place] [address] VIRHemoglobin A1con 26-84-7067Iifvcru glucose Estimated from glycated hemoglobin (Bld) [Mass/Vol]206 mg/dLMercy Health Kings Mills HospitalHbA1c (Bld) [Mass fraction]8.8 %High4.4 - 5.6 %[facility] HospitalComment on above:ADA Guidelines Result HgbA1c Normal : less than 5.7 % Prediabetes : 5.7 % to 6.4 % Diabetes : > 6.4 % Use with caution in patients with abnormal hemoglobin variants as the half-life of red blood cells and in vivo glycation rates are affected. Interpretation and review of laboratory resultsAbMilwaukee Regional Medical Center - Wauwatosa[note 3]CB with Auto Differentialon 04-03-2747Cnfjjewlo (Bld) [#/Vol]0.07 10*3/uLBon [facility] CenterBasophils/100 WBC (Bld)1 %0 - 2 %Bon [facility] Districty HealthEosinophils (Bld) [#/Vol]0.12 10*3/uLBon Secours Ohiohealth Grant Medical CenterEosinophils/100 WBC (Bld)1 %1 - 4 %Centra HealthErythrocyte distribution width (RBC) [Ratio]15.9 %High11.8 - 14.4 %[facility] Hematocrit (Bld) [Volume fraction]41.6 %36.3 - 47.1 %[facility] Hemoglobin (Bld) [Mass/Vol]12.6 g/dL11.9 - 15.1 g/dLBon [facility] Immature granulocytes (Bld) [#/Vol]0.25 10*3/uLBon [facility] CenterImmature granulocytes/100 WBC (Bld)2 %Yrfk0Dos [facility] CenterInterpretation and review of laboratory resultsAbnormalBon [facility] Medical CenterLymphocytes/100 WBC (Bld)13 %Low24 - 43 %Centra HealthLymphocytes/100 WBC (Bld)1.37 %[facility]aks HospitalH (RBC) [Entitic mass]28.1 pg25.2 - 33.5 pgBon Norwalk Memorial HospitalHC (RBC) [Mass/Vol]30.3 g/dL28.4 - 34.8 g/dLBon SecTrinity Health System East CampusV (RBC) [Entitic vol]92.7 fL82.6 - 102.9 fLBon [facility] Monocytes/100 WBC (Bld)6 %3 - 12 %[facility]ra HealthMonocytes/100 WBC (Bld)0.63 %[facility]ra HealthNeutrophils/100 WBC (Bld)77 %High36 - 65 %Centra HealthNucleated RBC/100 WBC (Bld) [Ratio]0 %0.0 per 100 WBCBon [facility] Medical CenterPlatelet mean volume (Bld) [Entitic vol]10.2 fL8.1 - 13.5 fL Bon SecLeonard J. Chabert Medical Center HealthPlatelets (Bld) [#/Vol]238 10*3/uLBon SecLeonard J. Chabert Medical Center HealthRBC (Bld) [#/Vol]4.49 10*6/uL3.95 - 5.11 m/[facility] Community HospitalRB (Bld) [#/Vol]ANISOCYTOSIS PRESENTCentra HealthSeented neutrophils/100 WBC (Bld)7.91 %Bon [facility] Medical CenterWBC other (Bld) [#/Vol] 10.4Bon [facility] CenterCB with Diffon 03-10-2025 Abs. Basophil0.07 k/uLNormal0.00-0.20Holzer Health SystemComment on above:Performed By: #### CP, MG, CDP ####[facility] [address]qai[address]wuld[address] [place], [place] [address])[phone] Director: Jose Miguel Davis MD Abs.Imm.Granulocyte0.25 k/uLNormal0.00-0.30[facility] Comment on above:Performed By: #### CP, MG, CDP ####[facility] [address] [place], [place] [address])[phone] Director: Jose Miguel Davis MD Abs.Neutrophil (Seg)7.91 k/uLNormal1.50-8.10[facility] Comment on above:Performed By: #### CP, MG, CDP ####[facility] Unbpdaaxmiom8486 [place], [place] 69[address]2419)[phone] Director: Jose Miguel Davis MD Basophils/100 WBC (Bld)1 %Normal0-2MercSan Luis Obispo General HospitalComment on above:Performed By: #### CP, MG, CDP ####[facility] Erpwheaechxw1665 [place], [place] 00815419)[phone] Director: Jose Miguel Davis MDEosinophils (Bld) [#/Vol]0.12 10*3/uLNormal0.00-0.44[facility] Health SystemComment on above:Performed By: #### CP, MG, CDP ####[facility] [address] [place], [place] [address])[phone] Director: Jose Miguel Davis MDEosinophils/100 WBC (Bld)1 %Normal1-4Hol[facility] Health SystemComment on above:Performed By: #### CP, MG, CDP ####[facility] Zlopgtagxnvw4553 [place], [place] 66318419)[phone] Director: Jose Miguel Davis MDErythrocyte distribution width (RBC) [Ratio]15.9 %High11.8-14.4Hol[facility] Health SystemComment on above:Performed By: #### CP, MG, CDP ####[facility] Yeseuhxmgkud4709 [place], [place] [address]19)[phone] Director: Jose Miguel Davis MDHematocrit (Bld) [Volume fraction]41.6 %Rnrxkv72.3-47.1MVA [facility] CenterComment on above:Performed By: #### CP, MG, CDP ####[facility] [address]cm[address] [place] [address] [id number])[phone] Director: Jose Miguel Davis MDHemoglobin (Bld) [Mass/Vol]12.6 g/dLIkvcju10.9-15.1MVA [facility] CenterComment on above:Performed By: #### CP, MG, CDP ####[facility] Tcmgbhrdudku8759 [place], [place] 21446419)[phone] Director: Jose Miguel Davis MDImmature granulocytes/100 WBC (Bld)2 %Yoib3IihpbHolzer Health SystemComment on above:Performed By: #### CP, MG, CDP ####[facility] Lljjnduupxao7737 [place], [place] 83713419)[phone] Director: Jose Miguel Dvais MDLymphocytes (Bld) [#/Vol]1.37 10*3/uLNormal1.10-3.70[facility] Health SystemComment on above:Performed By: #### CP, MG, CDP ####[facility] Ppkhnmggssvq7562 [place] [address] Lab Director: Jose Miguel Davis MDLymphocytes/100 WBC (Bld)13 %Ddh13-91OpztlHolzer Health SystemComment on above:Performed By: #### CP, MG, CDP ####[facility] Qanqvtpogzvg8912 [place], [place] 01423419)[phone] Director: Jose Miguel Davis MDMCH (RBC) [Entitic mass]28.1 kgYneahf80.2-33.5Hol[facility] Health SystemComment on above:Performed By: #### CP, MG, CDP ####[facility] Jmsqyljtcaxu2432 [place], [place] 43720419)[phone] Director: BERTO GilbertCHC (RBC) [Mass/Vol]30.3 g/dL Ypxbzq86.4-34.8Holzer Health SystemComment on above:Performed By: #### CP, MG, CDP ####[facility] Atoketmtvjnx4640 [place], [place] 36154419)[phone] Director: BERTO GilbertCV (RBC) [Entitic vol]92.7 fL Rmozsb75.6-102.9Holzer Health SystemComment on above:Performed By: #### CP, MG, CDP ####[facility] Eqbukumxyjkq6963 [place], [place] 15487419)[phone] Director: Jose Miguel Davis MDMonocytes (Bld) [#/Vol]0.63 10*3/uLNormal0.10-1.20Hol[facility] Health SystemComment on above:Performed By: #### CP, MG, CDP ####[facility] Vncnodfizsig9745 [place], [place] 80579419)[phone] Director: BERTO Gilbertonocytes/100 WBC (Bld)6 % Normal3-12Holzer Health SystemComment on above:Performed By: #### CP, MG, CDP ####[facility] Mbidwsegtmab4254 [place], [place] 23693026)[phone] Director: Julius Gilbertutrophil (Seg)77 %Eaxs89-37 [facility] Health SystemComment on above:Performed By: #### CP, MG, CDP ####[facility] [address] [place] [address] 28601419)[phone] Director: Jose Miguel Davis MDNRBC Automated0.0 per 100 WBCNormal0.0Holzer Health SystemComment on above:Performed By: #### CP, MG, CDP ####[facility] Rhvgaqeeqgnj8757 [place], [place] 03507419)[phone] Director: Anamika Gilberttemoon mean volume (Bld) [Entitic vol]10.2 fLNormal8.1-13.5Holzer Health SystemComment on above:Performed By: #### CP, MG, CDP ####[facility] Ecvc[address] [place] [address] Lab Director: Anamika Gilberttelets (Bld) [#/Vol]238 10*3/wKMzeslx898-207QwjriHolzer Health SystemComment on above:Performed By: #### CP, MG, CDP ####[facility] [address] [place] [address] Lab Director: ROSSY GilbertBC (Bld) [#/Vol]4.49 10*6/uLNormal3.95-5.11Hol[facility] Health SystemComment on above:Performed By: #### CP, MG, CDP ####[facility] Ilmwievxkkii8466 [place] [address] Lab Director: JEANETTE Gilbert morphology finding Nom (Bld)ANISOCYTOSIS PRESENTNormalHolzer Health SystemComment on above:Performed By: #### CP, MG, CDP ####[facility] Fhmzdutujhgz9027 [place] [address] Lab Director: FAIZA GilbertBC (Bld) [#/Vol]10.4 10*3/uLNormal3.5-11.3Mercy Davies CampusComment on above:Performed By: #### MONA MG, CDP ####[facility] Fghymnrsedyj7154 [place], [place] [id number])[phone] Director: LAURI Gilbertomp Metabolic Profon 97-11-4384Qbfwkkj [Mass/Vol]2.6 g/dLLow3.5-5.2Mer[facility] Davies CampusComment on above:Performed By: #### MONA MG, CDP ####[facility] Maecklxkujlu9632 [place], [place] [address])[phone] Director: Jose Miguel Davis MD Albumin/Glob Ratio0.9Low1.0-2.5Hol[facility] Health SystemComment on above: Performed By: #### MONA MG, CDP ####[facility] Xhpvoiglzbrl6266 [place], [place] [id number])[phone] Director: Jose Miguel Davis MDAlkaline Phos70 U/LNormal 35-104Holzer Health SystemComment on above:Performed By: #### MONA, MG, CDP ####[facility] A[address]fsnscex3[address] [place], [place] [id number])[phone] Director: Jose Miguel Davis MDALT [Catalytic activity/Vol]14 U/RLqyupl68-02SomodHolzer Health SystemComment on above:Performed By: #### MONA, MG, CDP ####[facility] Ppevzyaqhlzc6996 [place], [place] [phone])[phone] Director: Jose Miguel Davis MDAnion gap [Moles/Vol]13 mmol/LNormal9-16Hol[facility] Health SystemComment on above:Performed By: #### MONA, MG, CDP ####[facility] Ebcjyswsbfmj0439 [place], [place] 21469419)[phone] Director: Jose Miguel Davis MDAST [Catalytic activity/Vol]20 U/HGppfsd30-46ZrqysHolzer Health SystemComment on above:Performed By: #### CP, MG, CDP ####[facility] [address] [place], [place] [address])[phone] Director: Jose Miguel Davis MDBilirubin [Mass/Vol]0.7 mg/dLNormal0.0-1.2MVA [facility] CenterComment on above:Performed By: #### CP, MG, CDP ####[facility] [address] [place], [place] [address])[phone] Director: LAURI Gilbertalcium [Mass/Vol]8.0 mg/dLLow8.6-10.4Hol[facility] Health SystemComment on above: Performed By: #### CP, MG, CDP ####[facility] [address]cjz[address] [place], [place] [address])[phone] Director: LAURI Gilberthloride [Moles/Vol]101 mmol/L Jbboar08-172KokveHolzer Health SystemComment on above:Performed By: #### CP, MG, CDP ####[facility] Qxdfryyarmxg7[address] [place], [place] [address])[phone] Director: Jose Miguel Davis MDCO2 [Moles/Vol]25 mmol/LNormal 20-31Holzer Health SystemComment on above:Performed By: #### CP, MG, CDP ####[facility] Xcsbpxzdxipb3662 [place], [place] [address])[phone] Director: LAURI Gilbertreatinine [Mass/Vol]0.7 mg/dLNormal0.6-0.9Holzer Health SystemComment on above:Performed By: #### CP, MG, CDP ####[facility] Jhprxebafgvi6[address] [place], [place] [address])[phone] Director: Jose Miguel Davsi MDGFR/1.73 sq M.predicted among non-blacks MDRD (S/P/Bld) [Vol rate/Area]mL/min/{1.73_m2}Normal>60Holzer Health SystemComment on above:Result Comment: These results are not intended for [...] or following therapy that affects renal tubular secretion.Performed By: #### CP, MG, CDP ####[facility] Tujs[address]axsybk4[address] [place], [place] [phone] Director: Jose Miguel Davis MDGlucose [Mass/Vol]191 mg/vSSpvr56-95ZknbbVA [facility] CenterComment on above:Performed By: #### CP MG, CDP ####[facility] [address] [place] [address])[phone] Director: Jose Miguel Davis MD Potassium [Moles/Vol]3.2 mmol/LLow3.7-5.3MVA [facility] CenterComment on above:Result Comment: Specimen hemolysis has exceeded the interference as defined by Ranjith. Value may be falsely increased. Suggest recollection if clinically indicated.Performed By: #### CP, MG, CDP ####[facility] Kfuxbijamksb67[address] [place], [place] [phone])[phone] Director: BETITO Gilbertrotein [Mass/Vol]5.4 g/dLLow 6.6-8.7Holzer Health SystemComment on above:Performed By: #### CP, MG, CDP ####[facility] Wnsycoobarge25[address] [place], [place] [phone])[phone] Director: ABNER Gilbertodium [Moles/Vol]139 mmol/QTcdbyu940-044IjwxpSutter Medical Center, SacramentoComment on above:Performed By: #### CP, MG, CDP ####[facility] [address]ploaavgb[address] [place] [address] Lab Director: Jose Miguel Davis MDUrea nitrogen [Mass/Vol]9 mg/dLNormal8-23Holzer Health SystemComment on above:Performed By: #### MONA, MG, CDP ####[facility] [address]edkdcphhfnk[address] [place] [address] lab Director: Jose Miguel Davis MD Comprehensive Metabolic Panelon 17-40-3894Niqdijv [Mass/Vol]2.6 g/dLLow3.5 - 5.2 g/dLBon Secours Mercy HealthAlbumin/Globulin [Mass ratio]0.9 {ratio}Low1.0 - 2.5[facility] HealthALP [Catalytic activity/Vol]70 U/L35 - 104 U/LBon Secours [facility] HealthALT [Catalytic activity/Vol]14 U/L10 - 35 U/LBon Secours [facility] HealthAnion gap [Moles/Vol]13 mmol/L9 - 16 mmol/LBon Sec[facility] AST [Catalytic activity/Vol]20 U/L10 - 35 U/LBon Secours [facility] HealthBilirubin [Mass/Vol]0.7 mg/dL0.0 - 1.2 mg/dLBon Secours [facility] HealthCalcium [Mass/Vol]8 mg/dLLow8.6 - 10.4 mg/dLBon Secours Mer[facility] HealthChloride [Moles/Vol]101 mmol/L98 - 107 mmol/LBon Secours [facility] HealthCO2 [Moles/Vol]25 mmol/L20 - 31 mmol/LBon Secours [facility] HealthCreatinine [Mass/Vol]0.7 mg/dL0.6 - 0.9 mg/dLBon Secours [facility] HealthEst, Glom Filt Rate- PINFBon Secours Mercy HealthGlucose [Mass/Vol] 191 mg/lHMgbx08 - 99 mg/dLBon Secours [facility] HealthPotassium [Moles/Vol]3.2 mmol/LLow3.7 - 5.3 mmol/LBon Secours [facility] HealthProtein [Mass/Vol]5.4 g/dLLow 6.6 - 8.7 g/dLBon Secours [facility] HealthSodium [Moles/Vol]139 mmol/L136 - 145 mmol/LBon Secours [facility] HealthUrea nitrogen [Mass/Vol]9 mg/dL8 - 23 mg/dLBon [facility] CenterGlucose,Whole Bloodon 78-34-8306Eacjsbn [Mass/Vol]252 mg/dL Xvzo05-369RslubHolzer Health SystemGlucose [Mass/Vol]228 mg/vDEaeh97-760 [facility] Health SystemGlucose [Mass/Vol]184 mg/qQEfzt56-744GehakHolzer Health SystemK (Potassium)/rfx MGon 52-04-1950Xtutktqmc [Moles/Vol]3.6 mmol/LLow3.7-5.3[facility] CampusComment on above:Performed By: #### KX ####[facility] Ppeyzttkfjmy[address] [place], [place] [id number] Lab Director: Baljinder Gilbertgnesiumon 08-13-2867Jyqlujowr [Mass/Vol]1.4 mg/dL Low1.6 - 2.4 mg/dLBon [facility] Medical CenterMagnesium [Mass/Vol]1.4 mg/dLLow 1.6-2.4Holzer Health SystemComment on above:Performed By: #### CP, MG, CDP ####[facility] [address]jwfakmf[address] [place], [place] [address] Lab Director: Eusebio Gilbert Panel Informationon 00-75-7833Sqmryguhrnziic and review of laboratory resultsAbnormWellmont Health SystemPOC Glucose Fingerstickon 10-69-1383Nmvdiaw [Mass/Vol]252 mg/cQRxit09 - 105 mg/dLBon [facility] CenterInterpretation and review of laboratory results AbnormalBon [facility] CenterGlucose [Mass/Vol]228 mg/vJMzqw48 - 105 mg/dLBon [facility] CenterInterpretation and review of laboratory resultsAbnormWellmont Health System Glucose [Mass/Vol]184 mg/iBXiqm42 - 105 mg/dLBon [facility] Interpretation and review of laboratory resultsAbnormLifePoint HealthPotassium w/ Reflex to Magnesiumon 03-10-2025 Interpretation and review of laboratory resultsAbnormalCentra Health Potassium [Moles/Vol]3.6 mmol/LLow3.7 - 5.3 mmol/LBon [facility] Surgery CenterXR CHEST (2 VW)on [id number] CHEST (2 VW)EXAMINATION: TWO XRAY VIEWS OF THE CHEST 03/10/2025 [...] Signed by: Irene Bravo MD 03/10/25 Final resultNormalMercy Davies CampusXR Chest 2 Viewson 03-10-2025 MHPN RIS CONSOLIDATEDMHPN RIS CONSOLIDATEDBon [facility] Medical CenterRadiology Study observation (narrative)Centra HealthXR Chest 2 ViewsOrdered By: Irene Bravo on 84-57-3125Szl [facility] Work Phone: cbc with Auto Differentialon 29-61-4681Zulugranc (Bld) [#/Vol]0.05 10*3/uLBon [facility] Medical CenterBasophils/100 WBC (Bld)1 %0 - 2 %Centra HealthEosinophils (Bld) [#/Vol]0.12 10*3/uLBon [facility] Medical CenterEosinophils/100 WBC (Bld)1 %1 - 4 %Centra HealthErythrocyte distribution width (RBC) [Ratio]15.9 %High11.8 - 14.4 %[facility] Hematocrit (Bld) [Volume fraction]42.5 %36.3 - 47.1 %[facility] Hemoglobin (Bld) [Mass/Vol]12.8 g/dL11.9 - 15.1 g/dLBon [facility] Immature granulocytes (Bld) [#/Vol]0.33 10*3/uLHighBon [facility] Immature granulocytes/100 WBC (Bld)4 %Yhpa4NyxCentra Health Interpretation and review of laboratory resultsAbnormalCentra Health Lymphocytes/100 WBC (Bld)11 %Low24 - 43 %Centra HealthLymphocytes/100 WBC (Bld)0.98 %LowBon [facility]walk Memorial HospitalH (RBC) [Entitic mass]27.9 pg25.2 - 33.5 pgInova Fair Oaks HospitalHC (RBC) [Mass/Vol]30.1 g/dL28.4 - 34.8 g/dLBon [facility] CenterMCV (RBC) [Entitic vol]92.8 fL82.6 - 102.9 fLCentra HealthMonocytes/100 WBC (Bld)5 %3 - 12 %[facility] Monocytes/100 WBC (Bld)0.46 %Centra HealthNeutrophils/100 WBC (Bld)78 %High36 - 65 %Centra HealthNucleated RBC/100 WBC (Bld) [Ratio]0 %0.0 per 100 WBCCentra HealthPlatelet mean volume (Bld) [Entitic vol]9.8 fL8.1 - 13.5 fLCentra HealthPlatelets (Bld) [#/Vol]233 10*3/uLBon SecSelect Medical Specialty Hospital - Columbus SouthRBC (Bld) [#/Vol]4.58 10*6/uL3.95 - 5.11 m/uLBon SecSelect Medical Specialty Hospital - Columbus SouthRBC (Bld) [#/Vol]ANISOCYTOSIS PRESENTBon [facility] Segmented neutrophils/100 WBC (Bld)6.96 %Bon [facility] Medical CenterWBC other (Bld) [#/Vol]8.9Bon [facility] CenterCBC with Diffon 48-03-2712Moi. Basophil0.05 k/uLNormal0.00-0.20[facility] Comment on above:Performed By: #### CDP, MG, CP ####[facility] Lmgipangunsw[address] [place], [place] [address])[phone] Director: Jose Miguel Davis MD Abs.Imm.Granulocyte0.33 k/uLHigh0.00-0.30Holzer Health SystemComment on above:Performed By: #### CDP, MG, CP ####[place], [place] [address])[phone] Director: Jose Miguel Davis MDAbs.Neutrophil (Seg)6.96 k/uLNormal1.50-8.10Holzer Health SystemComment on above: Performed By: #### CDP, MG, CP ####[facility] [address]az[address]th[address] [place], [place] [address])[phone] Director: Jose Miguel Davis MDBasophils/100 WBC (Bld)1 % Normal0-2MVA [facility] CenterComment on above:Performed By: #### CDP, MG, CP ####[facility] [address]tiidmwhkndx[address] [place], [place] [address])[phone] Director: Jose Miguel Davis MDEosinophils (Bld) [#/Vol]0.12 10*3/uLNormal0.00-0.44Holzer Health SystemComment on above:Performed By: #### CDP, MG, CP ####[facility] Xhcjpgkiqyrl[address] [place], [place] [address])[phone] Director: Jose Miguel Davis MDEosinophils/100 WBC (Bld)1 % Normal1-4Holzer Health SystemComment on above:Performed By: #### CDP, MG, CP ####[facility] [address] [place] [address])[phone] Director: Jose Miguel Davis MDErythrocyte distribution width (RBC) [Ratio]15.9 %High11.8-14.4Hol[facility] Health SystemComment on above:Performed By: #### CDP, MG, CP ####[facility] [address] [place], [place] [address])[phone] Director: Jose Miguel Davis MDHematocrit (Bld) [Volume fraction]42.5 %Zfeweq94.3-47.1MVA [facility] CenterComment on above:Performed By: #### CDP, MG, CP ####[facility] [address] [place], [place] [address])[phone] Director: Jose Miguel Davis MDHemoglobin (Bld) [Mass/Vol]12.8 g/bLMjnpiw71.9-15.1MVA [facility] CenterComment on above:Performed By: #### CDP, MG, CP ####[facility] [address] [place], [place] [address])[phone] Director: Jose Miguel Davis MDImmature granulocytes/100 WBC (Bld)4 %Lpsx3FtwyiHolzer Health SystemComment on above:Performed By: #### CDP, MG, CP ####[facility] [address] [place], [place] [address])[phone] Director: Jose Miguel Davis MDLymphocytes (Bld) [#/Vol]0.98 10*3/uLLow1.10-3.70Hol[facility] Health SystemComment on above:Performed By: #### CDP, MG, CP ####[facility] [address] [place] [address])[phone] Director: Jose Miguel Davis MDLymphocytes/100 WBC (Bld)11 %Kte01-95DpaqoHolzer Health SystemComment on above:Performed By: #### CDP, MG, CP ####[facility] Kgtjjzyksrsm3192 [place], [place] [id number])[phone] Director: BERTO GilbertCH (RBC) [Entitic mass]27.9 jqOfqrrh20.2-33.5Holzer Health SystemComment on above:Performed By: #### CDP, MG, CP ####[facility] [address]pozv[address]ugd24[address] [place], [place] [id number])[phone] Director: BERTO GilbertCHC (RBC) [Mass/Vol]30.1 g/dL Rippby76.4-34.8Holzer Health SystemComment on above:Performed By: #### CDP, MG, CP ####[facility] Pjcxlklbynnd[address]663 [place], [place] [address]306[address]19)[phone] Director: BERTO GilbertCV (RBC) [Entitic vol]92.8 fL Yyoxeh61.6-102.9Holzer Health SystemComment on above:Performed By: #### CDP, MG, CP ####[facility] Ecmrtjsuczrq6360 [place], [place] [address]19)[phone] Director: Jose Miguel Davis MDMonocytes (Bld) [#/Vol]0.46 10*3/uLNormal0.10-1.20[facility] Health SystemComment on above:Performed By: #### CDP, MG, CP ####[facility] Dtnhjglyovey6683 [place], [place] [id number])[phone] Director: BERTO Gilbertonocytes/100 WBC (Bld)5 % Normal3-12Holzer Health SystemComment on above:Performed By: #### CDP, MG, CP ####[facility] Lpcjwjwamoja5553 [place], [place] [address]19)[phone] Director: Jose Miguel Davis MDNeutrophil (Seg)78 %Sqfa77-01 [facility] Health SystemComment on above:Performed By: #### CDP, MG, CP ####[facility] Xmpbii[address]kwc79[address] [place], [place] [id number])[phone] Director: Jose Miguel Davis MDNRBC Automated0.0 per 100 WBCNormal0.0Holzer Health SystemComment on above:Performed By: #### CDP, MG, CP ####[facility] Aeigtsyzjlbq[address] [place], [place] [address]19)[phone] Director: BETITO Gilbertlatelet mean volume (Bld) [Entitic vol]9.8 fLNormal8.1-13.5Holzer Health SystemComment on above:Performed By: #### CDP, MG, CP ####[facility] Spxziqvmuxji50[address] [place], [place] 22236419)[phone] Director: BETITO Gilbertlatelets (Bld) [#/Vol]233 10*3/zRNqxwif822-674AvxkgHolzer Health SystemComment on above:Performed By: #### CDP, MG, CP ####[facility] [address] [place] [address]11419)[phone] Director: ROSSY GilbertBC (Bld) [#/Vol]4.58 10*6/uLNormal3.95-5.11Hol[facility] Health SystemComment on above:Performed By: #### CDP, MG, CP ####[facility] Yjtmwhvetivj7773 [place], [place] [address]19)[phone] Director: JEANETTE Gilbert morphology finding Nom (Bld)ANISOCYTOSIS PRESENTNormalHolzer Health SystemComment on above:Performed By: #### CDP, MG, CP ####[facility] G[address]nkmevubt[address] [place], [place] 83008419)[phone] Director: Jose Miguel Davis MDWBC (Bld) [#/Vol]8.9 10*3/uLNormal3.5-11.3MVA [facility] CenterComment on above:Performed By: #### CDP, MG, CP ####[facility] Lnaivopenzfy40[address] [place], [place] [address])[phone] Director: LAURI Gilbertomp Metabolic Profon 26-49-0425Qapukat [Mass/Vol]2.8 g/dLLow3.5-5.2[facility] CampusComment on above:Performed By: #### CDP, MG, CP ####[facility] Tmkeqqzanooa[address] [place], [place] [address])[phone] Director: Jose Miguel Davis MD Albumin/Glob Ratio0.9Low1.0-2.5Holzer Health SystemComment on above: Performed By: #### CDP, MG, CP ####[facility] Hrxlxjtdlalo64[address] [place], [place] [address])[phone] Director: Josie Gilbertline Phos75 U/LNormal 35-104Holzer Health SystemComment on above:Performed By: #### CDP, MG, CP ####[facility] [address]zgee[address] [place], [place] [address])[phone] Director: Jose Miguel Davis MDALT [Catalytic activity/Vol]15 U/ABecfyx05-69HuitgHolzer Health SystemComment on above:Performed By: #### CDP, MG, CP ####[facility] Qkpchynwyxtx5556 [place], [place] [address])[phone] Director: Jose Miguel Davis MDAnion gap [Moles/Vol]12 mmol/LNormal9-16[facility] Health SystemComment on above:Performed By: #### CDP, MG, CP ####[facility] Breltluphgke13[address] [place], [place] [address])[phone] Director: Jose Miguel Davis MDAST [Catalytic activity/Vol]18 U/ESkubzm12-32CcxvaHolzer Health SystemComment on above:Performed By: #### CDP, MG, CP ####[facility] Gbthqucmodqy0933 [place], [place] [address])[phone] Director: Jose Miguel Davis MDBilirubin [Mass/Vol]0.8 mg/dLNormal0.0-1.2MVA [facility] CenterComment on above:Performed By: #### CDP, MG, CP ####[facility] Dlwyzabkaaut[address] [place], [place] [address])[phone] Director: LAURI Gilbertalcium [Mass/Vol]8.4 mg/dLLow8.6-10.4Hol[facility] Health SystemComment on above: Performed By: #### CDP, MG, CP ####[facility] Qnzkycapqemv8[address] [place], [place] [address])[phone] Director: LAURI Gilberthloride [Moles/Vol]101 mmol/L Sougyt59-328ChjzpHolzer Health SystemComment on above:Performed By: #### CDP, MG, CP ####[facility] Reqdolibbhlt7809 [place], [place] [address])[phone] Director: Jose Miguel Davis MDCO2 [Moles/Vol]27 mmol/LNormal 20-31[facility] Health SystemComment on above:Performed By: #### CDP, MG, CP ####[facility] Rzfmwjzjueyx4214 [place], [place] [address])[phone] Director: LAURI Gilbertreatinine [Mass/Vol]0.7 mg/dLNormal0.6-0.9[facility] Health SystemComment on above:Performed By: #### CDP, MG, CP ####[facility] Jngsikfgllge[address] [place], [place] [address])[phone] Director: Jose Miguel Davis MDGFR/1.73 sq M.predicted among non-blacks MDRD (S/P/Bld) [Vol rate/Area]mL/min/{1.73_m2}Normal>60[facility] Health SystemComment on above:Result Comment: These results are not intended for [...] or following therapy that affects renal tubular secretion.Performed By: #### CDP, MG, CP ####[facility] Zxllcfeiueru6467 [place], [place] [address])[phone] Director: Jose Miguel Davis MDGlucose [Mass/Vol]276 mg/nKBuqf42-44QfsqtVA [facility] CenterComment on above:Performed By: #### CDP, MG, CP ####[facility] Xtsyiswxklse1384 [place], [place] [address])[phone] Director: Jose Miguel Davis MD Potassium [Moles/Vol]3.6 mmol/LLow3.7-5.3MVA [facility] CenterComment on above:Performed By: #### CDP, MG, CP ####[facility] [address] [place], [place] [address])[phone] Director: Jose Miguel Davis MDProtein [Mass/Vol]5.9 g/dLLow6.6-8.7Hol[facility] Health SystemComment on above: Performed By: #### CDP, MG, CP ####[facility] [address] [place] [address])[phone] Director: ABNER Gilbertodium [Moles/Vol]140 mmol/L Buqbsr525-146ZnlgyHolzer Health SystemComment on above:Performed By: #### CDP, MG, CP ####[facility] Ukamdevqnyme5678 [place], [place] [address])[phone] Director: Jose Miguel Davis MDUrea nitrogen [Mass/Vol]10 mg/dLNormal8-23[facility] Health SystemComment on above:Performed By: #### CDP, MG, CP ####[facility] Xlpjfhmoddhu7615 [place] [address] Lab Director: Jose Miguel Davis, [facility] OKLAHOMA CITYomprehensive Metabolic Panel on 93-13-0772Knoihss [Mass/Vol]2.8 g/dLLow3.5 - 5.2 g/dLBon SecLeonard J. Chabert Medical Center Health Albumin/Globulin [Mass ratio]0.9 {ratio}Low1.0 - 2.5[facility] HealthALP [Catalytic activity/Vol]75 U/L35 - 104 U/LBon Secours [facility] HealthALT [Catalytic activity/Vol]15 U/L10 - 35 U/LBon Secours [facility], [facility] HealthAnion gap [Moles/Vol]12 mmol/L9 - 16 mmol/LBon Secours [facility] HealthAST [Catalytic activity/Vol]18 U/L10 - 35 U/LBon Secours [facility], [facility] HealthBilirubin [Mass/Vol]0.8 mg/dL0.0 - 1.2 mg/dLBon Secours [facility] HealthCalcium [Mass/Vol]8.4 mg/dLLow8.6 - 10.4 mg/dLBon Secours [facility] HealthChloride [Moles/Vol]101 mmol/L98 - 107 mmol/LBon [facility]ours [facility] HealthCO2 [Moles/Vol]27 mmol/L20 - 31 mmol/LBon [facility]ours [facility] HealthCreatinine [Mass/Vol]0.7 mg/dL0.6 - 0.9 mg/dLBon Secours [facility] HealthEst, Glom Filt Rate- PINFBon Secours [facility], [facility] HealthGlucose [Mass/Vol]276 mg/mPFkjh86 - 99 mg/dLBon Secours [facility] HealthInterpretation and review of laboratory resultsAbnormalBon Secours [facility] HealthPotassium [Moles/Vol]3.6 mmol/LLow3.7 - 5.3 mmol/LBon Secours [facility] HealthProtein [Mass/Vol]5.9 g/dLLow6.6 - 8.7 g/dLBon Secours [facility] HealthSodium [Moles/Vol]140 mmol/L136 - 145 mmol/LBon Secours [facility] HealthUrea nitrogen [Mass/Vol]10 mg/dL8 - 23 mg/dLBon Secours [facility] HealthGlucose,Whole Bloodon 16-83-7117Extrqha [Mass/Vol]262 mg/iHVgxw88-019UoerzHolzer Health SystemGlucose [Mass/Vol]219 mg/tDXhhx68-200EozqzHolzer Health System Glucose [Mass/Vol]288 mg/bMRfrx03-205QsipbHolzer Health SystemGlucose [Mass/Vol]259 mg/kFSfmu38-932MyezxHolzer Health SystemMagnesiumon 06-60-9790Xwptzhvip [Mass/Vol]1.6 mg/dL1.6 - 2.4 mg/dLBon [facility] Magnesium [Mass/Vol]1.6 mg/dLNormal1.6-2.4[facility] Comment on above:Performed By: #### CDP, MG, CP ####[employer] [place] [address] lab Director: Jose Miguel Davis MDNo Panel Informationon 37-39-9328V[facility] Glucose Fingerstickon 79-18-3340Vghiebk [Mass/Vol]262 mg/mWKamm68 - 105 mg/dLBon [facility] Interpretation and review of laboratory resultsAbnormalLifepoint HealthGlucose [Mass/Vol]219 mg/iLBbfw10 - 105 mg/dLBon [facility] CenterInterpretation and review of laboratory resultsAbnormalCentra Lynchburg General HospitalGlucose [Mass/Vol]288 mg/wZQpfu40 - 105 mg/dLBon [facility] CenterInterpretation and review of laboratory results AbnormalBon [facility] CenterGlucose [Mass/Vol]259 mg/uTWqgn24 - 105 mg/dLBon [facility] CenterInterpretation and review of laboratory resultsAbnormWellmont Health SystemBasic Metab w/rfx MGon 04-17-7912Nvwsl gap [Moles/Vol]11 mmol/LNormal9-16[facility] Health SystemComment on above:Performed By: #### CDP, LIVP, MG, BMPX ####[employer] [address] [place] [id number] Lab Director: LAURI Gilbertalcium [Mass/Vol]8.6 mg/dLNormal8.6-10.4[facility] Health SystemComment on above:Performed By: #### CDP, LIVP, MG, BMPX ####[facility] [address]avatmhbs[address] [place] [address] Lab Director: LAURI Gilberthloride [Moles/Vol]103 mmol/BTuysvv95-604TyegnHolzer Health SystemComment on above:Performed By: #### CDP, LIVP, MG, BMPX ####[facility] Tyrma[address]lhiar[address] [place] [address] Lab Director: Jose Miguel Davis MDCO2 [Moles/Vol]28 mmol/UDjwtaj88-34FoaajHolzer Health System Comment on above:Performed By: #### CDP, LIVP, MG, BMPX ####[facility] Vdtxodprxzqd4[address] [place], [place] [address])[phone] Director: LAURI Gilbertreatinine [Mass/Vol]0.6 mg/dLNormal0.6-0.9[facility] Health SystemComment on above:Performed By: #### CDP, LIVP, MG, BMPX ####[facility] [address]xseqlim[address] [place] [address] Lab Director: Jose Miguel Davis MDGFR/1.73 sq M.predicted among non-blacks MDRD (S/P/Bld) [Vol rate/Area]mL/min/{1.73_m2}Normal>60MerSutter Medical Center, SacramentoComment on above:Result Comment: These results are not intended for [...] or following therapy that affects renal tubular secretion.Performed By: #### CDP, LIVP, MG, BMPX ####[facility] [address]sui[address] [place] [address] Lab Director: Jose Miguel Davis MDGlucose [Mass/Vol]237 mg/oMZjxi00-74CqvpoVA [facility] CenterComment on above:Performed By: #### CDP, LIVP, MG, BMPX ####[facility] [address]zk[address] [place], [place] [address])[phone] Director: BETITO Gilbertotassium [Moles/Vol]3.5 mmol/LLow3.7-5.3MVA [facility] CenterComment on above:Performed By: #### CDP, LIVP, MG, BMPX ####[facility] [address]jlqnt[address]typh[address] [place] [address] Lab Director: ABNER Gilbertodium [Moles/Vol]142 mmol/ATdccbp932-519JkglvHolzer Health SystemComment on above:Performed By: #### CDP, LIVP, MG, BMPX ####[facility] [address]chjuwy[address] [place] [address] Lab Director: Jose Miguel Davis MDUrea nitrogen [Mass/Vol]13 mg/dLNormal8-23[facility] Health SystemComment on above:Performed By: #### CDP, LIVP, MG, BMPX ####[facility] [address]ljohdpico[address] [place] [address] Lab Director: Jose Miguel Davis MDBabaptist health paducah Metabolic Panel w/ Reflex to MGon 54-21-9966Pnyry gap [Moles/Vol]11 mmol/L9 - 16 mmol/LBon Secours [facility] HealthCalcium [Mass/Vol]8.6 mg/dL8.6 - 10.4 mg/dLBon Secours [facility] HealthChloride [Moles/Vol]103 mmol/L98 - 107 mmol/LBon [facility]ours [facility] HealthCO2 [Moles/Vol]28 mmol/L20 - 31 mmol/LBon [facility]ours [facility] HealthCreatinine [Mass/Vol]0.6 mg/dL0.6 - 0.9 mg/dLBon [facility]ours [facility] HealthEst, Glom Filt Rate- PINFBon Secours [facility] Medical CenterGlucose [Mass/Vol] 237 mg/rERuuy18 - 99 mg/dLBon SecLeonard J. Chab[facility] HealthInterpretation and review of laboratory resultsAbnormalBon [facility]ours [facility] Medical CenterPotassium [Moles/Vol]3.5 mmol/LLow3.7 - 5.3 mmol/LBon [facility]ours [facility] Medical CenterSodium [Moles/Vol]142 mmol/L136 - 145 mmol/LBon Secours [facility] Medical CenterUrea nitrogen [Mass/Vol]13 mg/dL8 - 23 mg/dLBon Secours [facility] HealthCBC with Auto Differential on 09-74-1666Vewioietp (Bld) [#/Vol]0.05 10*3/uLBon Secours [facility] [facility] Bas[facility]/100 WBC (Bld)1 %0 - 2 %[facility] HealthEosinophils (Bld) [#/Vol]0.11 10*3/uLBon [facility] HealthEosinophils/100 WBC (Bld)1 %1 - 4 % [facility] HealthErythrocyte distribution width (RBC) [Ratio]16 %High11.8 - 14.4 %[facility] HealthHematocrit (Bld) [Volume fraction]42.7 %36.3 - 47.1 %[facility] HealthHemoglobin (Bld) [Mass/Vol]12.8 g/dL11.9 - 15.1 g/dLBon [facility]ours [facility] CenterImmature granulocytes (Bld) [#/Vol]0.34 10*3/uLHigh [facility] CenterImmature granulocytes/100 WBC (Bld)4 %Cbdl4Frk [facility] HealthInterpretation and review of laboratory resultsAbnormalBon SecSelect Medical Specialty Hospital - Columbus SouthLymphocytes/100 WBC (Bld)11 %Low24 - 43 %[facility]Leon[facility] Health Lymphocytes/100 WBC (Bld)1 %LowBon [facility] Memorial HospitalH (RBC) [Entitic mass] 28.1 pg25.2 - 33.5 pgBon SecSelect Medical Specialty Hospital - Columbus SouthMCHC (RBC) [Mass/Vol]30 g/dL28.4 - 34.8 g/dLBon [facility] Memorial HospitalV (RBC) [Entitic vol]93.6 fL82.6 - 102.9 fL [facility] HealthMonocytes/100 WBC (Bld)5 %3 - 12 %[facility] HealthMonocytes/100 WBC (Bld)0.47 %[facility] HealthNeutrophils/100 WBC (Bld)78 %High36 - 65 %[facility] HealthNucleated RBC/100 WBC (Bld) [Ratio]0 %0.0 per 100 WBCCentra HealthPlatelet mean volume (Bld) [Entitic vol]10.7 fL8.1 - 13.5 fLWythe County Community Hospital HealthPlatelets (Bld) [#/Vol] 209 10*3/uLBon [facility] Medical CenterRBC (Bld) [#/Vol]4.56 10*6/uL3.95 - 5.11 m/uL [facility] HealthRBC (Bld) [#/Vol]ANISOCYTOSIS PRESENTBon [facility] Medical CenterSegmented neutrophils/100 WBC (Bld)7.25 %[facility] HealthWBC other (Bld) [#/Vol]9.2Bon SecRogers Memorial Hospital - OconomowocCBC with Diffon 66-93-5219Sdk. Basophil0.05 k/uLNormal0.00-0.20[facility] Comment on above:Performed By: #### CDP, LIVP, MG, BMPX ####[facility] [address] [place] [address] Lab Director: Anna Gilbert.Imm.Granulocyte0.34 k/uLHigh0.00-0.30[facility] SystemComment on above:Performed By: #### CDP, LIVP, MG, BMPX ####[employer] [address] [place] [id number] Lab Director: Anna Gilbert.Neutrophil (Seg)7.25 k/uLNormal1.50-8.10[facility] SystemComment on above:Performed By: #### CDP, LIVP, MG, BMPX ####[facility] F[address]sekjvlu[address] [place], [place] [phone])[phone] Director: Jose Miguel Davis MDBasophils/100 WBC (Bld)1 %Normal0-2MVA [facility] Comment on above:Performed By: #### CDP, LIVP, MG, BMPX ####[facility] Wibsjmuzafcc53[address] [place], [place] [phone] Director: Jose Miguel Davis MDEosinophils (Bld) [#/Vol]0.11 10*3/uLNormal0.00-0.44[facility] SystemComment on above:Performed By: #### CDP, LIVP, MG, BMPX ####[facility] [address] [place], [place] [address])[phone] Director: RAUL Gilbertosinophils/100 WBC (Bld)1 %Normal1-4[facility] Comment on above:Performed By: #### CDP, LIVP, MG, BMPX ####[facility] [address] [place], [place] [phone])[phone] Director: Jose Miguel Davis MDErythrocyte distribution width (RBC) [Ratio]16.0 %High11.8-14.4[facility] SystemComment on above:Performed By: #### CDP, LIVP, MG, BMPX ####[facility] K[address]ilw[address]54[address] [place], [place] [phone] Director: Jose Miguel Davis MDHematocrit (Bld) [Volume fraction]42.7 %Normal 36.3-47.1MVA [facility] CenterComment on above:Performed By: #### CDP, LIVP, MG, BMPX ####[facility] Mdvmoufxksyb4715 [place], [place] [phone] Director: Jose Miguel Davis MDHemoglobin (Bld) [Mass/Vol] 12.8 g/xVZaqgzn17.9-15.1MVA [facility] CenterComment on above: Performed By: #### CDP, LIVP, MG, BMPX ####[facility] Zpv[address]wqmlak[address]761 [place] [address] Lab Director: Sarah Gilbertmature granulocytes/100 WBC (Bld)4 %Trnr3IiormHolzer Health SystemComment on above:Performed By: #### CDP, LIVP, MG, BMPX ####[facility] Dsicpwnfwwkb3225 [place], [place] [address])[phone] Director: Jose Miguel Davis MDLymphocytes (Bld) [#/Vol]1.00 10*3/uLLow1.10-3.70[facility] SystemComment on above:Performed By: #### CDP, LIVP, MG, BMPX ####[facility] Q[address]fulrkaeamr8328 [place], [place] [phone] Director: Atul Gilbertmphocytes/100 WBC (Bld)11 %Soq88-24AswkeHolzer Health SystemComment on above:Performed By: #### CDP, LIVP, MG, BMPX ####[facility] Zpdxlxvmqgcs7968 [place], [place] [phone] Director: JOSE ALFREDO Gilbert (RBC) [Entitic mass]28.1 bkOaxeej84.2-33.5[facility] SystemComment on above:Performed By: #### CDP, LIVP, MG, BMPX ####[facility] Uhylctwciwha2746 [place], [place] [phone] Director: JOSE ALFREDO GilbertC (RBC) [Mass/Vol]30.0 g/dL Vgdwjs32.4-34.8[facility] SystemComment on above:Performed By: #### CDP, LIVP, MG, BMPX ####[facility] Resbjlteoqje1788 [place], [place] [phone] Director: BERTO GilbertCV (RBC) [Entitic vol]93.6 fL Nwijha81.6-102.9[facility] SystemComment on above:Performed By: #### CDP, LIVP, MG, BMPX ####[facility] [address] [place] [address] [phone] Director: BERTO Gilbertonocytes (Bld) [#/Vol]0.47 10*3/uLNormal0.10-1.20[facility] SystemComment on above:Performed By: #### CDP, LIVP, MG, BMPX ####[facility] [address] [place] [address] [phone] Director: BERTO Gilbertonocytes/100 WBC (Bld)5 % Normal3-12[facility] SystemComment on above:Performed By: #### CDP, LIVP, MG, BMPX ####[facility] Nvmrfl[address] [place], [place] [phone])[phone] Director: Narciso Gilbertophil (Seg)78 %Rqej14-89 [facility] SystemComment on above:Performed By: #### CDP, LIVP, MG, BMPX ####[facility] [address] [place] [address] [id number])[phone] Director: Jose Miguel Davis MDNRBC Automated0.0 per 100 WBCNormal0.0[facility] Health SystemComment on above:Performed By: #### CDP, LIVP, MG, BMPX ####[facility] [address] [place] [address] [phone])[phone] Director: BETITO Gilbertlatelet mean volume (Bld) [Entitic vol]10.7 fLNormal8.1-13.5 [facility] SystemComment on above:Performed By: #### CDP, LIVP, MG, BMPX ####[facility] [address] [place], [place] [phone])[phone] Director: BETITO Gilbertlatelets (Bld) [#/Vol]209 10*3/xGXqezef750-730FopevHolzer Health SystemComment on above:Performed By: #### CDP, LIVP, MG, BMPX ####[facility] Nbsytavjzvxq6623 [place], [place] [phone])[phone] Director: ROSSY GilbertBC (Bld) [#/Vol]4.56 10*6/uLNormal3.95-5.11[facility] SystemComment on above:Performed By: #### CDP, LIVP, MG, BMPX ####[facility] Yymxmpyqfoeq2504 [place], [place] [phone])[phone] Director: JEANETTE Gilbert morphology finding Nom (Bld)ANISOCYTOSIS PRESENT NormalHolzer Health SystemComment on above:Performed By: #### CDP, LIVP, MG, BMPX ####[facility] Sriljwrcdttn5[address] [place], [place] [phone] Director: FAIZA GilbertBC (Bld) [#/Vol]9.2 10*3/uLNormal3.5-11.3 [facility] SystemComment on above:Performed By: #### CDP, LIVP, MG, BMPX ####[facility] Rhbwpulniaku9741 [place], [place] [phone])[phone] Director: Chyna Gilbert, Bloodon 99-04-5709Vuqz, BloodSpecimen Description .BLOOD Special Requests NO INFO GIVEN Culture NO GROWTH 5 DAYS Report Status FINAL 03/08/2025NoAvita Health System Bucyrus HospitalComment on above:Performed By: #### BCUL2 ####[facility] Jkewwjrxsgzh0086 [place], [place] [phone] Director: Chyna Gilbert,Bloodon 03-08-2025 Cult,BloodSpecimen Description .BLOOD Special Requests NO INFO GIVEN Culture NO GROWTH 5 DAYS Report Status FINAL 03/08/2025NormSalem Regional Medical CenterComment on above:Performed By: #### BC ####[employer] M[address]ujziq58[address] [place] [address] lab Director: LAURI Gilbertulture, Blood 1on 03-08-2025 Microorganism identified Cx Nom (Unsp spec)NO GROWTH 5 DAYSBon [facility] HealthService comment (Unsp spec) [Interp]NO INFO GIVENCentra Health Specimen Description.BLOODCentra [facility] Culture, Blood 2on 94-20-9573Pvaschvndaect identified Cx Nom (Unsp spec)NO GROWTH 5 DAYSBon [facility]Leon[facility]. [facility] HealthService comment (Unsp spec) [Interp]NO INFO GIVENBon [facility] Medical CenterSpecimen Description.BLOODCentra Health Bon [facility] CenterGlucose,Whole Bloodon 02-36-5048Csulwds [Mass/Vol]288 mg/eMPwpv42-316Pooqj58 [address] StreetGlucose [Mass/Vol]405 mg/dL Critically kppz40-816Vnkjg[address] [place], [place] [address]Comment on above:Result Comment: Critical NotedGlucose [Mass/Vol]374 mg/cMCajo39-880Fcboc58 Price StreetGlucose [Mass/Vol]210 mg/aHQhhk71-046Bazbd58 Price StreetHepatic Function Panelon 03-00-5183Nlzzcsr [Mass/Vol]2.7 g/dLLow3.5 - 5.2 g/dLBon [facility] HealthAlbumin/Globulin [Mass ratio]0.8 {ratio}Low1.0 - 2.5 Bon [facility] [employer] HealthALP [Catalytic activity/Vol]86 U/L35 - 104 U/LBon SecMadigan Army Medical CenterMy [facility] HealthALT [Catalytic activity/Vol]16 U/L10 - 35 U/LBon [facility] [employer] HealthAST [Catalytic activity/Vol]18 U/L10 - 35 U/LBon [facility] HealthBilirubin [Mass/Vol]0.8 mg/dL0.0 - 1.2 mg/dLBon [facility] Bilirubin.direct [Mass/Vol]0.3 mg/dLHigh0.0 - 0.2 mg/dLBon [facility] Bilirubin.indirect [Mass/Vol]0.5 mg/dL0.0 - 1.0 mg/dLBon [facility] Globulin (S) [Mass/Vol]3.3 g/dLBon [facility] CenterInterpretation and review of laboratory resultsAbnormalCentra HealthProtein [Mass/Vol]6 g/dL Low6.6 - 8.7 g/dLBon [facility] CenterBon [facility] Medical CenterLiver Profileon 60-01-6355Easfofb [Mass/Vol]2.7 g/dLLow3.5-5.2MVA [facility] Comment on above:Performed By: #### CDP, LIVP, MG, BMPX ####[facility] [address]ad[address]jjgen[address] [place] [address] Lab Director: Jose Miguel Davis MDAlbumin/Glob Ratio0.8Low1.0-2.5[facility] SystemComment on above:Performed By: #### CDP, LIVP, MG, BMPX ####[facility] Yhuokxncpysw77[address] [place] [address] Lab Director: Jose Miguel Davis MDAlkaline Phos86 U/ZXdnsdb93-295ZhelsHolzer Health SystemComment on above:Performed By: #### CDP, LIVP, MG, BMPX ####[facility] Qysmimqncaib4768 [place] [address] Lab Director: Jose Miguel Davis MDALT [Catalytic activity/Vol]16 U/AOwhayj62-48AeqqeHolzer Health SystemComment on above:Performed By: #### CDP, LIVP, MG, BMPX ####[facility] Ujcjbadnwfro39[address] [place] [address] Lab Director: Jose Miguel Davis MDAST [Catalytic activity/Vol]18 U/EJpesrm84-56KywnwHolzer Health SystemComment on above:Performed By: #### CDP, LIVP, MG, BMPX ####[facility] Gjltrofprfbn4475 [place], [place] [phone] Director: Jose Miguel Davis MDBilirubin [Mass/Vol]0.8 mg/dL Normal0.0-1.2MVA [facility] CenterComment on above:Performed By: #### CDP, LIVP, MG, BMPX ####[facility] Vpdpcxqmmcoo6926 [place], [place] [phone] Director: Jose Miguel Davis MDBilirubin, Indirect0.5 mg/dL Normal0.0-1.0[facility] SystemComment on above:Performed By: #### CDP, LIVP, MG, BMPX ####[facility] [address] [place] [address])[phone] Director: Jose Miguel Davis MDBilirubin.indirect [Mass/Vol] 0.3 mg/dLHigh0.0-0.2MVA [facility] CenterComment on above:Performed By: #### CDP, LIVP, MG, BMPX ####[facility] [address] [place] [address] [phone] Director: Jose Miguel Davis MDGlobulin (S) [Mass/Vol]3.3 g/dLNormalHolzer Health SystemComment on above:Performed By: #### CDP, LIVP, MG, BMPX ####[facility] Olafeugrvtpp38[address] [place], [place] [address])[phone] Director: BETITO Gilbertrotein [Mass/Vol]6.0 g/dLLow 6.6-8.7[facility] SystemComment on above:Performed By: #### CDP, LIVP, MG, BMPX ####[facility] Ymkwvlvkfovq4[address] [place], [place] [address])[phone] Director: Baljinder Gilbertgnesiumon 66-17-5424Mzfqdnwiv [Mass/Vol] 1.6 mg/dL1.6 - 2.4 mg/dLBon [facility] Magnesium [Mass/Vol]1.6 mg/dLNormal1.6-2.4[facility] Comment on above:Performed By: #### CDP, LIVP, MG, BMPX ####[employer] Knhbmbhxnytd4284 [place], [place] 2014408 Lab Director: BETITO Gilbert Glucose Fingerstickon 75-55-5701Lfumefa [Mass/Vol]288 mg/vROsdd60 - 105 mg/dLBon [facility] CenterInterpretation and review of laboratory resultsAbnormalCentra Lynchburg General HospitalGlucose [Mass/Vol]405 mg/dLCritically high65 - 105 mg/dLBon [facility] Interpretation and review of laboratory resultsAbnormalLifepoint HealthGlucose [Mass/Vol]374 mg/eUXdbg09 - 105 mg/dLBon [facility] CenterInterpretation and review of laboratory resultsAbnormalCentra Lynchburg General HospitalGlucose [Mass/Vol]210 mg/kIJvpc64 - 105 mg/dLBon [facility] CenterInterpretation and review of laboratory results AbnormalBon [facility] CenterBasic Metab w/rfx MGon 68-92-7426Bgnqs gap [Moles/Vol]9 mmol/LNormal9-16[facility] SystemComment on above:Performed By: #### CDP, MG, BMPX ####[facility] Mu[address]frhlthjrk[address] [place], [place] 2096808 Lab Director: LAURI Gilbertalcium [Mass/Vol]8.5 mg/dLLow8.6-10.4[facility] Comment on above:Performed By: #### CDP, MG, BMPX ####[employer] [address] [place], [place] 8034108 Lab Director: Jose Miguel Madoff, MDChloride [Moles/Vol]107 mmol/MGootqy79-470XwkkjHolzer Health SystemComment on above:Performed By: #### CDP, MG, BMPX ####[facility] Dzxkckrymtpb7103 [place] [address] Lab Director: Jose Miguel Davis MDCO2 [Moles/Vol] 28 mmol/KYejgkn36-87MkgvzHolzer Health SystemComment on above:Performed By: #### CDP, MG, BMPX ####[facility] Raquxxafavjs5926 [place] [address] Lab Director: LAURI Gilbertreatinine [Mass/Vol]0.6 mg/dL Normal0.6-0.9[facility] SystemComment on above:Performed By: #### CDP, MG, BMPX ####[facility] [address] [place] [address] Lab Director: Jose Miguel Davis MDGFR/1.73 sq M.predicted among non-blacks MDRD (S/P/Bld) [Vol rate/Area]mL/min/{1.73_m2}Normal>60[facility] SystemComment on above:Result Comment: These results are not intended for [...] or following therapy that affects renal tubular secretion.Performed By: #### CDP, MG, BMPX ####[facility] Xasisvmmhhnr7212 [place] [address] Lab Director: Jose Miguel Davis MDGlucose [Mass/Vol]215 mg/lHBjjh94-84EullzVA [facility] CenterComment on above:Performed By: #### CDP, MG, BMPX ####[facility] Oxoxedmsflat9605 [place] [address] Lab Director: Jose Miguel Madoff, MDPotassium [Moles/Vol]3.5 mmol/LLow3.7-5.3[facility] Davies CampusComment on above:Performed By: #### CDP, MG, BMPX ####[facility] Ymouhas[address]anku[address] [place] [address] Lab Director: ABNER Gilbertodium [Moles/Vol]144 mmol/ZXuqrqx627-663GoexiHolzer Health SystemComment on above:Performed By: #### CDP, MG, BMPX ####[facility] Lxbafuwypfkq1372 [place] [address] Lab Director: Jose Miguel Davis MDUrea nitrogen [Mass/Vol]22 mg/dLNormal8-23[facility] SystemComment on above:Performed By: #### CDP, MG, BMPX ####[facility] Iiefbltwljsa6[address] [place] [address] Lab Director: Corie Gilbert Metabolic Panel w/ Reflex to MGon 51-77-3938Qhnym gap [Moles/Vol]9 mmol/L9 - 16 mmol/LBon [facility]ours Mercy HealthCalcium [Mass/Vol]8.5 mg/dLLow8.6 - 10.4 mg/dLBon [facility]ours [facility] HealthChloride [Moles/Vol]107 mmol/L98 - 107 mmol/LBon [facility]ours [facility] HealthCO2 [Moles/Vol]28 mmol/L20 - 31 mmol/LBon [facility]ours [facility] HealthCreatinine [Mass/Vol]0.6 mg/dL0.6 - 0.9 mg/dLBon Secours [facility] HealthEst, Glom Filt Rate- PINFBon Secours Mercy HealthGlucose [Mass/Vol] 215 mg/zVHzgh48 - 99 mg/dLBon [facility]ours [facility] HealthInterpretation and review of laboratory resultsAbnormalBon [facility] HealthPotassium [Moles/Vol]3.5 mmol/LLow3.7 - 5.3 mmol/LBon [facility]ours [facility] HealthSodium [Moles/Vol]144 mmol/L136 - 145 mmol/LBon [facility]ours [facility] HealthUrea nitrogen [Mass/Vol]22 mg/dL8 - 23 mg/dLBon SecRogers Memorial Hospital - OconomowocCBC with Auto Differential on 78-85-8733Vxqgrbjkh (Bld) [#/Vol]0.04 10*3/uLBon [facility] CenterImmature granulocytes (Bld) [#/Vol]0.17 10*3/uLBon [facility] HealthInterpretation and review of laboratory resultsAbnormalBon [facility] CenterLymphocytes/100 WBC (Bld)0.82 %LowBon [facility] Medical CenterMonocytes/100 WBC (Bld)0.55 %Bon [facility] CenterNeutrophils/100 WBC (Bld)85 %High36 - 65 %[facility]ra HealthNucleated RBC/100 WBC (Bld) [Ratio]0 %0.0 per 100 WBCBon [facility] Medical CenterRBC (Bld) [#/Vol]ANISOCYTOSIS PRESENTBon [facility] Medical CenterSegmented neutrophils/100 WBC (Bld)9.6 %HighBon [facility] Medical CenterWBC other (Bld) [#/Vol]11.3[facility] HealthCBC with Diffon 44-02-0804Qleezjvyw/100 WBC (Bld)0 %Normal0-2Bon [facility] CenterComment on above:Performed By: #### CDP, MG, BMPX ####[employer] Bdvnrjpynwqd3698 [place] [address] Lab Director: RAUL Gilbertosinophils (Bld) [#/Vol]0.11 10*3/uLNormal0.00-0.44Bon [facility] CenterComment on above:Performed By: #### CDP, MG, BMPX ####[employer] Rmlzpzwkqtiy9622 [place] [address] Lab Director: RAUL Gilbertosinophils/100 WBC (Bld)1 %Normal1-4Bon [facility] CenterComment on above:Performed By: #### CDP, MG, BMPX ####[employer] [place] [address] Lab Director: Jose Miguel Davis MDErythrocyte distribution width (RBC) [Ratio]16.2 %High11.8-14.4Bon [facility] CenterComment on above: Performed By: #### CDP, MG, BMPX ####[facility] Wbujmbstjbni1220 [place] [address] Lab Director: Jose Miguel Davis MDHematocrit (Bld) [Volume fraction]38.5 %Wrkbhi76.3-47.1Bon [facility] CenterComment on above:Performed By: #### CDP, MG, BMPX ####[facility] Ofybgzpthckf3010 [place] [address] Lab Director: Jose Miguel Davis MDHemoglobin (Bld) [Mass/Vol] 11.3 g/dLLow11.9-15.1Bon [facility] CenterComment on above:Performed By: #### CDP, MG, BMPX ####[facility] Cfxhsweduxzz4032 [place] [address] Lab Director: Jose Miguel Davis MDImmature granulocytes/100 WBC (Bld)2 %Dzzk4Jrs [facility] CenterComment on above:Performed By: #### CDP, MG, BMPX ####[facility] Smfnsywiowvh4863 [place] [address] Lab Director: Jose Miguel Davis MDLymphocytes/100 WBC (Bld)7 %Vnf36-16Cot [facility] CenterComment on above:Performed By: #### CDP, MG, BMPX ####[facility] Oadckwlkbshh2486 [place] [address] Lab Director: BERTO GilbertCH (RBC) [Entitic mass]28.1 nvPowehb20.2-33.5Bon [facility] Comment on above:Performed By: #### CDP, MG, BMPX ####[facility] Kmsdywjkmsxz0194 [place] [address] Lab Director: BERTO GilbertCHC (RBC) [Mass/Vol]29.4 g/kPLypubk21.4-34.8Bon [facility] CenterComment on above:Performed By: #### CDP, MG, BMPX ####[facility] Nscrxrwqcwwu9845 [place], [place] [phone])[phone] Director: BERTO GilbertCV (RBC) [Entitic vol]95.8 nOAdamzp37.6-102.9Bon [facility] CenterComment on above: Performed By: #### CDP, MG, BMPX ####[facility] D[address] [place], [place] [phone] Director: BERTO Gilbertonocytes/100 WBC (Bld)5 % Normal3-12Bon [facility] CenterComment on above:Performed By: #### CDP, MG, BMPX ####[facility] Hykwe[address]drj[address] [place], [place] [phone])[phone] Director: BETITO Gilbertlatelet mean volume (Bld) [Entitic vol]10.6 fL Normal8.1-13.5Bon [facility] CenterComment on above:Performed By: #### CDP, MG, BMPX ####[facility] Vjhggcohiv[address] [place], [place] [phone])[phone] Director: Jose Miguel Davis MDPlatelets (Bld) [#/Vol]152 10*3/rMMdvlhq440-970Ezg [facility] CenterComment on above:Performed By: #### CDP, MG, BMPX ####[facility] Xthfbplkxmhj6265 [place], [place] [phone])[phone] Director: Jose Miguel Davis MDRBC (Bld) [#/Vol]4.02 10*6/uLNormal3.95-5.11Bon [facility] Comment on above:Performed By: #### CDP, MG, BMPX ####[facility] [address] [place] [address] Lab Director: Jose Miguel Davis MDAbs. Basophil0.04 k/uLNormal0.00-0.20[facility] SystemComment on above:Performed By: #### CDP, MG, BMPX ####[facility] Fejywvxrlwun0565 [place] [address] Lab Director: Jose Miguel Davis MD Abs.Imm.Granulocyte0.17 k/uLNormal0.00-0.30[facility] Comment on above:Performed By: #### CDP, MG, BMPX ####[facility] Ojoxevrrjjmh1548 [place] [address] Lab Director: Jose Miguel Davis MD Abs.Neutrophil (Seg)9.60 k/uLHigh1.50-8.10[facility] Comment on above:Performed By: #### CDP, MG, BMPX ####[facility] Czngysmmjpqi7050 [place] [address] Lab Director: Jose Miguel Davis MD Lymphocytes (Bld) [#/Vol]0.82 10*3/uLLow1.10-3.70[facility] SystemComment on above:Performed By: #### CDP, MG, BMPX ####[facility] Plpofdbsadih6432 [place] [address] Lab Director: BERTO Gilbertonocytes (Bld) [#/Vol]0.55 10*3/uLNormal0.10-1.20[facility] SystemComment on above:Performed By: #### CDP, MG, BMPX ####[facility] Efvieefguqfl4304 [place] [address] Lab Director: Jose Miguel Davis MDNeutrophil (Seg)85 %Epck56-89RubrlHolzer Health SystemComment on above:Performed By: #### CDP, MG, BMPX ####[facility] Qdlnooqvednn3645 [place] [address] Lab Director: Jose Miguel Davis MDNRBC Automated 0.0 per 100 WBCNormal0.0[facility] Health SystemComment on above: Performed By: #### CDP, MG, BMPX ####[facility] Rcirpgxowwvj3607 [place], [place] [phone])[phone] Director: JEANETTE Gilbert morphology finding Nom (Bld)ANISOCYTOSIS PRESENTNormalMerSutter Medical Center, SacramentoComment on above: Performed By: #### CDP, MG, BMPX ####[facility] Bcyzkraplnmk5745 [place], [place] [id number])[phone] Director: Jose Miguel Davis MDWBC (Bld) [#/Vol]11.3 10*3/uL Normal3.5-11.3Mer[facility] Davies CampusComment on above:Performed By: #### CDP, MG, BMPX ####[facility] Flkrbkbvtexf8379 [place], [place] [id number])[phone] Director: Chai Gilbert, Ionicon 03-07-2025 Calcium [Moles/Vol]1.21 mmol/LNormal1.13-1.33[facility] Comment on above:Performed By: #### IOCAL ####[facility] Qnnggjuanswg3[address] [place], [place] [id number])[phone] Director: Chai Gilbert, Ionized on 13-61-8679Epudqzw.ionized (Bld) [Moles/Vol]1.21 mmol/L1.13 - 1.33 mmol/LBon [facility] CenterBon [facility] Medical CenterCult,Aerobe/Anaerobeon 03-07-2025 Cult,Aerobe/AnaerobeSpecimen Description .DRAINAGE PERC JT Direct Exam RARE NEUTROPHILS RARE GRAM NEGATIVE RODS Culture ESCHERICHIA COLI HEAVY GROWTH Identification by MALDI-TOF No anaerobic organisms isolated at 5 days. Report Status FINAL 03/09/2025 SUSCEPTIBILITY Organism ESCHERICHIA COLI Method YASMINE Ampicillin <=2 SUSCEPTIBLE Cefazolin <=4 SUSCEPTIBLE Ceftriaxone <=0.25 SUSCEPTIBLE ESBL NEGATIVE Gentamicin <=1 SUSCEPTIBLE Levofloxacin <=0.12 SUSCEPTIBLE Piperacillin/Tazobactam <=4 SUSCEPTIBLE Tobramycin <=1 SUSCEPTIBLE Trimethoprim/Sulfa <=20 SUSCEPTIBLESusceptibleHolzer Health System Comment on above:Performed By: #### AANC ####[facility] Abainelznkjz8652 [place], [place] 5[address] lab Director: LAURI Gilbertulture, Anaerobic and [employer] 01-04-1430Fjdgayohdsaurd and review of laboratory resultsAbnormCJW Medical CenterMicroorganism identified Cx Nom (Unsp spec)ESCHERICHIA COLI HEAVY GROWTH Identification by MALDI-TOFAbnormPage Memorial Hospitalroorganism identified Cx Nom (Unsp spec)No anaerobic organisms isolated at 5 days.Bon [facility] CenterMicroorganism or agent identified Nom (Unsp spec)RARE NEUTROPHILSCentra HealthMicroorganism or agent identified Nom (Unsp spec)NegativeCentra HealthSpecimen Description.DRAINAGE PERC CHOLEBon [facility] Glucose,Whole Bloodon 03-97-7167Mhaxwib [Mass/Vol]249 mg/bAVvdb35-556KiasdHolzer Health SystemGlucose [Mass/Vol]269 mg/jUDupt74-737MpvriHolzer Health SystemGlucose [Mass/Vol]239 mg/cIHfft12-243KxttjHolzer Health SystemGlucose [Mass/Vol]204 mg/hSTacv10-104SlcwzHolzer Health System Magnesiumon 14-85-3699Rnrznnese [Mass/Vol]1.8 mg/dL1.6 - 2.4 mg/dLBon [facility] CenterMagnesium [Mass/Vol]1.8 mg/dLNormal1.6-2.4 Holzer Health SystemComment on above:Performed By: #### CDP, MG, BMPX ####[facility] Txsfbllaxxvq[address] [place], [place] [phone] lab Director: Jose Miguel Davis [facility] Glucose Fingerstickon 50-55-6032Fiouqax [Mass/Vol]249 mg/dHCfvp68 - 105 mg/dLBon [facility] Medical CenterInterpretation and review of laboratory resultsAbnormalBon [facility] CenterGlucose [Mass/Vol]269 mg/bXSchk07 - 105 mg/dLBon [facility] Interpretation and review of laboratory resultsAbnormalLifepoint HealthGlucose [Mass/Vol]239 mg/tPMesc20 - 105 mg/dLBon [facility] CenterInterpretation and review of laboratory resultsAbnormalBon [facility] CenterGlucose [Mass/Vol]204 mg/wCSscz52 - 105 mg/dLBon [facility] CenterInterpretation and review of laboratory results AbnormalBon [facility] CenterBasic Metab w/rfx MGon 42-23-7614Yyuxg gap [Moles/Vol]10 mmol/LNormal9-16Holzer Health SystemComment on above:Performed By: #### BMPX, MG, CDP ####[facility] Hzqwaawosiko6966 [place] [address] Lab Director: Jose Miguel Davis MDCalcium [Mass/Vol]8.9 mg/dLNormal8.6-10.4Holzer Health SystemComment on above:Performed By: #### BMPX, MG, CDP ####[facility] Ucdlzfbfmmjo2899 [place] [address] Lab Director: LAURI Gilberthloride [Moles/Vol]104 mmol/APdvhhj36-419StspsHolzer Health SystemComment on above:Performed By: #### BMPX, MG, CDP ####[facility] Pkryrodxwtyc077[address] [place] [address] Lab Director: Jose Miguel Davis MDCO2 [Moles/Vol]29 mmol/AEclrnr54-17JhnhbHolzer Health System Comment on above:Performed By: #### BMPX, MG, CDP ####[facility] Zsmbxjtixtsh0524 [place] [address] Lab Director: Jose Miguel Davis MD Creatinine [Mass/Vol]1.0 mg/dLHigh0.6-0.9Holzer Health SystemComment on above:Performed By: #### BMPX, MG, CDP ####[facility] [address] [place] [address] Lab Director: Jose Miguel Davis MDGFR/1.73 sq M.predicted among non-blacks MDRD (S/P/Bld) [Vol rate/Area]59 mL/min/{1.73_m2} Low>60Holzer Health SystemComment on above:Result Comment: These results are not intended for [...] or following therapy that affects renal tubular secretion.Performed By: #### BMPX, MG, CDP ####[facility] [address] [place] [address] [phone] Director: Jose Miguel Davis MDGlucose [Mass/Vol]319 mg/fFPzvr61-80UwgjhVA [facility] CenterComment on above:Performed By: #### BMPX, MG, CDP ####[facility] [address] [place] [address] Lab Director: Jose Miguel Davis MDPotassium [Moles/Vol]3.3 mmol/LLow3.7-5.3[facility] Davies CampusComment on above:Performed By: #### BMPX, MG, CDP ####[facility] [address] [place] [address] Lab Director: Jose Miguel Davis MDSodium [Moles/Vol]143 mmol/CWbyrhj438-579UuvbfHolzer Health SystemComment on above:Performed By: #### BMPX, MG, CDP ####[facility] [address] [place] [address] Lab Director: Jose Miguel Davis MDUrea nitrogen [Mass/Vol]40 mg/dLHigh8-23Holzer Health SystemComment on above:Performed By: #### BMPX, MG, CDP ####[facility] [address] [place], [place] 2375[address] lab Director: Jose Miguel Davis MDBasic Metabolic Panel w/ Reflex to MGon 92-01-7714Zwget gap [Moles/Vol]10 mmol/L9 - 16 mmol/LBon Secours Mercy HealthCalcium [Mass/Vol]8.9 mg/dL8.6 - 10.4 mg/dLBon Secours Mercy HealthChloride [Moles/Vol]104 mmol/L98 - 107 mmol/LBon Secours Mercy HealthCO2 [Moles/Vol]29 mmol/L20 - 31 mmol/LBon Secours [facility] HealthCreatinine [Mass/Vol]1.0 mg/dLHigh0.6 - 0.9 mg/dLBon Secours Mercy HealthEst, Glom Filt Yhra02Nic- PINFBon Secours Mercy HealthGlucose [Mass/Vol]319 mg/kEEgim39 - 99 mg/dLBon Secours Mercy HealthInterpretation and review of laboratory resultsAbnormalBon Secours Mercy HealthPotassium [Moles/Vol]3.3 mmol/LLow3.7 - 5.3 mmol/LBon Secours [facility] HealthSodium [Moles/Vol]143 mmol/L136 - 145 mmol/LBon Secours Mercy HealthUrea nitrogen [Mass/Vol]40 mg/dLHigh8 - 23 mg/dLBon Secours Mercy HealthBon [facility]ours [facility]cy HealthCBC with Auto Differentialon 68-60-0003Hwwhfomdu (Bld) [#/Vol]0 10*3/uLBon Secours Mercy HealthBasophils/100 WBC (Bld)0 %0 - 2 %[facility] Eosinophils (Bld) [#/Vol]0.15 10*3/uLBon Secours Mercy HealthEosinophils/100 WBC (Bld)1 %1 - 4 %[facility] HealthErythrocyte distribution width (RBC) [Ratio]16.4 %High11.8 - 14.4 %[facility] SecLeonard J. Chabert Medical Center HealthHematocrit (Bld) [Volume fraction]39.3 %36.3 - 47.1 %Bon SecLeonard J. Chabert [facility] Center HealthHemoglobin (Bld) [Mass/Vol] 11.3 g/dLLow11.9 - 15.1 g/dLBon SecLeonard J. Chabert Medical Center HealthImmature granulocytes (Bld) [#/Vol]0.15 10*3/uLBon Secours [facility] Grant Medical CenterImmature granulocytes/100 WBC (Bld)1 %Jxlb5Ssl SecLeonard J. Chabert Medical Center HealthInterpretation and review of laboratory results AbnormalBon SecLeonard J. Chabert Medical Center HealthLymphocytes/100 WBC (Bld)5 %Low24 - 43 %Bon SecLeonard J. Chabert Medical Center HealthLymphocytes/100 WBC (Bld)0.74 %LowWythe County Community Hospital Health MCH (RBC) [Entitic mass]27.6 pg25.2 - 33.5 pgBon SecSelect Medical Specialty Hospital - Columbus SouthMCHC (RBC) [Mass/Vol]28.8 g/dL28.4 - 34.8 g/dLBon SecSelect Medical Specialty Hospital - Columbus SouthMCV (RBC) [Entitic vol]96.1 fL82.6 - 102.9 fLAbrazo Arrowhead Campus SecLeonard J. Chabert Medical Center HealthMonocytes/100 WBC (Bld)4 %3 - 12 %[facility] SecLeonard J. Chabert Medical Center HealthMonocytes/100 WBC (Bld)0.59 %[facility] SecLeonard J. Ch[facility]ert Medical Center HealthMorphology Kevin (Bld) [Interp]ANISOCYTOSIS PRESENTBon [facility] Health Neutrophils/100 WBC (Bld)89 %High36 - 65 %Bon SecLeonard J. Chabert Medical Center HealthNucleated RBC/100 WBC (Bld) [Ratio]0 %0.0 per 100 WBCBon SecLeonard J. Chabert Medical Center HealthPlatelet mean volume (Bld) [Entitic vol]10.7 fL8.1 - 13.5 fLAbrazo Arrowhead Campus SecLeonard J. Chabert Medical Center HealthPlatelets (Bld) [#/Vol]152 10*3/uLBon [facility]ours [facility] HealthRBC (Bld) [#/Vol]4.09 10*6/uL 3.95 - 5.11 m/uLBon SecSelect Medical Specialty Hospital - Columbus SouthSegmented neutrophils/100 WBC (Bld)13.07 %HighAbrazo Arrowhead Campus Secmiddletown [facility] department [facility] HealthWBC other (Bld) [#/Vol]14.7HCumberland [facility] with Diffon 56-33-0069Ify. Basophil0.00 k/uL Normal0.00-0.20Holzer Health SystemComment on above:Performed By: #### BMPX, MG, CDP ####[facility] Ewfeiywcdcsb[address] [place], [place] [phone] Director: MDAbs. VladimirImm.Granulocyte0.15 k/uL Normal0.00-0.30Holzer Health SystemComment on above:Performed By: #### BMPX, MG, CDP ####[facility] Eiiej[address]jzo[address] [place], [place] [phone] Director: Anna Gilbert.Neutrophil (Seg)13.07 k/uL High1.50-8.10Holzer Health SystemComment on above:Performed By: #### BMPX, MG, CDP ####[facility] Pgzoplzrupcn0827 [place], [place] [phone] Director: Jose Miguel Davis MDBasophils/100 WBC (Bld)0 % Normal0-2MVA [facility] CenterComment on above:Performed By: #### BMPX, MG, CDP ####[facility] Uosptarqovax[address] [place], [place] [phone] Director: Jose Miguel Davis MDEosinophils (Bld) [#/Vol]0.15 10*3/uLNormal0.00-0.44Holzer Health SystemComment on above:Performed By: #### BMPX, MG, CDP ####[facility] Buhzylrpjxgh4[address] [place], [place] [phone] Director: RAUL Gilbertosinophils/100 WBC (Bld)1 % Normal1-4Holzer Health SystemComment on above:Performed By: #### BMPX, MG, CDP ####[facility] Wclppjaudyrd8398 [place], [place] [phone] Director: Jose Miguel Davis MDImmature granulocytes/100 WBC (Bld)1 %Tpbu9DjuzjHolzer Health SystemComment on above:Performed By: #### BMPX, MG, CDP ####[facility] Yxwnleftbgbw3910 [place], [place] [phone] Director: Jose Miguel Davis MDLymphocytes (Bld) [#/Vol]0.74 10*3/uLLow1.10-3.70Hol[facility] Health SystemComment on above:Performed By: #### BMPX, MG, CDP ####[facility] Bijfrcxjawnf0434 [place], [place] [phone])[phone] Director: Jose Miguel Davis MDLymphocytes/100 WBC (Bld)5 % Syp96-54XfkxqHolzer Health SystemComment on above:Performed By: #### BMPX, MG, CDP ####[facility] Jpnvjsjuzrvs4579 [place], [place] [phone])[phone] Director: BERTO Gilbertonocytes (Bld) [#/Vol]0.59 10*3/uLNormal0.10-1.20[facility] Health SystemComment on above:Performed By: #### BMPX, MG, CDP ####[facility] Pzjyuavcmjui72[address] [place], [place] [phone] Director: Jose Miguel Davis MDMonocytes/100 WBC (Bld)4 % Normal3-12Holzer Health SystemComment on above:Performed By: #### BMPX, MG, CDP ####[facility] Ihbnwoovzxbw1224 [place], [place] [phone] Director: Jose Miguel Davis MDMorphology Kevin (Bld) [Interp] ANISOCYTOSIS PRESENTNormalHolzer Health SystemComment on above: Performed By: #### BMPX, MG, CDP ####[facility] Lcdvaqzgdjxz[address]359 [place], [place] [phone] Director: Jose Miguel Davis MDNeutrophil (Seg)89 %Klbn42-07 [facility] Health SystemComment on above:Performed By: #### BMPX, MG, CDP ####[facility] Ppxyaivyyfmc0397 [place], [place] 75174419)[phone] Director: Jose Miguel Davis MDErythrocyte distribution width (RBC) [Ratio]16.4 % High11.8-14.4Holzer Health SystemComment on above:Performed By: #### BMPX, MG, CDP ####[facility] Btdfaqkzmnbu101[address] [place], [place] [phone] Director: Jose Miguel Davis MDHematocrit (Bld) [Volume fraction]39.3 %Nbuerz32.3-47.1MVA [facility] CenterComment on above: Performed By: #### BMPX, MG, CDP ####[facility] Vpbzucbxeebn0505 [place], [place] [phone] Director: Jose Miguel Davis MDHemoglobin (Bld) [Mass/Vol] 11.3 g/dLLow11.9-15.1MVA [facility] CenterComment on above:Performed By: #### BMPX, MG, CDP ####[facility] Yfazuwqeybvu0241 [place], [place] [id number])[phone] Director: BERTO GilbertCH (RBC) [Entitic mass]27.6 caIddvtc82.2-33.5Holzer Health SystemComment on above:Performed By: #### BMPX, MG, CDP ####[facility] Oebqawmbqhby[address] [place], [place] [phone] Director: BERTO GilbertCHC (RBC) [Mass/Vol]28.8 g/dL Tuwhkf57.4-34.8Hol[facility] Health SystemComment on above:Performed By: #### BMPX, MG, CDP ####[facility] Qwuqyah[address]oh16[address] [place], [place] [phone] Director: BERTO GilbertCV (RBC) [Entitic vol]96.1 fL Ayhnli37.6-102.9Holzer Health SystemComment on above:Performed By: #### BMPX, MG, CDP ####[facility] Sbanhqzqisoj[address] [place], [place] [phone])[phone] Director: BEBE Gilbert Automated0.0 per 100 WBC Normal0.0Holzer Health SystemComment on above:Performed By: #### BMPX, MG, CDP ####[facility] Mqwjjgaeeisv9783 [place] [address] Lab Director: Anamika Gilberttelet mean volume (Bld) [Entitic vol]10.7 fLNormal8.1-13.5Holzer Health SystemComment on above:Performed By: #### BMPX, MG, CDP ####[facility] Xsvnlulmiuua8649 [place] [address] Lab Director: Anamika Gilberttelets (Bld) [#/Vol]152 10*3/yCXntubi215-575CfzvmHolzer Health SystemComment on above: Performed By: #### BMPX, MG, CDP ####[facility] Rdxvnwxquavs3739 [place] [address] Lab Director: Jose Miguel Davis MDRBC (Bld) [#/Vol]4.09 10*6/uL Normal3.95-5.11Holzer Health SystemComment on above:Performed By: #### BMPX, MG, CDP ####[facility] Hvnewicgehow8632 [place] [address] Lab Director: Jose Miguel Davis MDWBC (Bld) [#/Vol]14.7 10*3/uL High3.5-11.3MVA [facility] CenterComment on above:Performed By: #### BMPXMG, CDP ####[facility] Tgtzrsdtctss16[address] [place], [place] 3874108 Lab Director: Jose Miguel Davis MDGlucose,Whole Bloodon 50-57-3865Dtjdnbb [Mass/Vol]225 mg/cNZodw20-370JwbcaHolzer Health System Glucose [Mass/Vol]279 mg/bEHrwg50-789MmebvHolzer Health SystemGlucose [Mass/Vol]270 mg/wHWzdb34-778MbbmnHolzer Health SystemGlucose [Mass/Vol] 263 mg/qWFnqf84-663WcsdiHolzer Health SystemMagnesiumon 03-06-2025 Magnesium [Mass/Vol]2.1 mg/dL1.6 - 2.4 mg/dLBon [facility] CenterMagnesium [Mass/Vol]2.1 mg/dLNormal1.6-2.4[facility] Health SystemComment on above:Performed By: #### MG HIMANSHU, CDP ####[facility] Yqhfkjrldjxe8[address] [place], [place] 3134308 lab Director: BETITO GilbertOC Glucose Fingerstickon 82-56-1159Zotsnqg [Mass/Vol]225 mg/bYNglc74 - 105 mg/dLBon [facility] CenterInterpretation and review of laboratory resultsAbnormWellmont Health SystemGlucose [Mass/Vol]279 mg/nMKkls17 - 105 mg/dLBon [facility] HealthInterpretation and review of laboratory resultsAbnormalCentra Lynchburg General HospitalGlucose [Mass/Vol]270 mg/vDGiwn95 - 105 mg/dLBon [facility] Health Interpretation and review of laboratory resultsAbnormalLifepoint HealthGlucose [Mass/Vol]263 mg/jKSwbv46 - 105 mg/dLBon SecLeonard J. Chabert [facility] Center HealthInterpretation and review of laboratory resultsAbnormalCentra Lynchburg General HospitalArterial Bld Gas,POCon 54-79-2175Orvnt Test PositiveNormSalem Regional Medical CenterFIO210.0NormalHolzer Health SystemHCO3 (Bld) [Moles/Vol]28.2 mmol/LHigh21.0-28.0Hol[facility] Health SystemOxygen saturation in Blood95.2 %Bnufyn60.0-98.0Hol[facility] Health SystempCO2, Njhjkxru75.8 mm HbNwtw34.0-48.0[facility] Health SystempH, Arterial7.984Frxtbm7.350-7.450Holzer Health SystempO2, Caqtjqli44.6 mm HgLow83.0-108.0[facility] Health SystemPositive Base Excess (calc)1.8 mmol/LNormal0.0-3.0Memorial Hospitalite Drawn Right Radial ArteryNoAvita Health System Bucyrus HospitalArterial Blood Gas, POC on 32-47-2751Jdiuw TestPositiveBon SecSelect Medical Specialty Hospital - Columbus SouthFIO210Bon [facility] Medical CenterHCO3 (Bld) [Moles/Vol]28.2 mmol/LHigh21.0 - 28.0 mmol/LBon [facility] CenterOxygen saturation in Blood95.2 %94.0 - 98.0 %[facility] SystemC mNH142.8HighBon SecCleveland Clinic South Pointe HospitalC pH7.3537.350 - 7.450[facility] SecCleveland Clinic South Pointe HospitalC PO281.6LowBon SecSelect Medical Specialty Hospital - Columbus SouthPositive Base Excess, Art1.8 mmol/L 0.0 - 3.0 mmol/LBon Secours [facility], [facility] HospitalSample SiteRight Radial ArteryBon SecSelect Medical Specialty Hospital - Columbus SouthCBC with Auto Differentialon 08-75-1997Racwprvqz (Bld) [#/Vol]0 10*3/uLBon Secours [facility] Grant Medical CenterBasophils/100 WBC (Bld)0 %0 - 2 %[facility] Medical CenterEosinophils (Bld) [#/Vol]0 10*3/uLBon [facility]ours [facility] Eosinophils/100 WBC (Bld)0 %Low1 - 4 %[facility] Medical CenterErythrocyte distribution width (RBC) [Ratio]16.3 %High11.8 - 14.4 %[facility] Hematocrit (Bld) [Volume fraction]40.8 %36.3 - 47.1 %[facility] Hemoglobin (Bld) [Mass/Vol]11.9 g/dL11.9 - 15.1 g/dLBon [facility] Immature granulocytes (Bld) [#/Vol]0 10*3/uLBon [facility] CenterImmature granulocytes/100 WBC (Bld)0 %0Centra HealthInterpretation and review of laboratory resultsAbnormalCentra HealthLymphocytes/100 WBC (Bld)4 %Low24 - 44 %[facility] HealthLymphocytes/100 WBC (Bld)0.97 %LowInova Fair Oaks HospitalH (RBC) [Entitic mass]27.8 pg25.2 - 33.5 pgInova Fair Oaks HospitalHC (RBC) [Mass/Vol]29.2 g/dL28.4 - 34.8 g/dLBon [facility] CenterMCV (RBC) [Entitic vol]95.3 fL82.6 - 102.9 fLCentra Health Monocytes/100 WBC (Bld)5 %1 - 7 %[facility] HealthMonocytes/100 WBC (Bld) 1.21 %[facility] Medical CenterMorphology Kevin (Bld) [Interp]ANISOCYTOSIS PRESENTCentra HealthNeutrophils/100 WBC (Bld)91 %High36 - 66 %[facility] HealthNucleated RBC/100 WBC (Bld) [Ratio]0.1 %High0.0 per 100 WBC Centra HealthPlatelet mean volume (Bld) [Entitic vol]11 fL8.1 - 13.5 fLCentra HealthPlatelets (Bld) [#/Vol]155 10*3/uLBon [facility] Medical CenterRBC (Bld) [#/Vol]4.28 10*6/uL3.95 - 5.11 m/uLCentra Health Segmented neutrophils/100 WBC (Bld)22.02 %HighCentra HealthWBC other (Bld) [#/Vol]24.2HCJW Medical CenterBon [facility] with Diffon 23-88-7927Jxm. Basophil0.00 k/uLNormal0.0-0.2MVA [facility] CenterComment on above:Performed By: #### CDP, CMPX, LACTIC ####[facility] Heswbwgrhztl7516 [place], [place] [phone] Director: MDAbs. VladimirImm.Granulocyte0.00 k/uLNormal0.00-0.30Hol[facility] Health SystemComment on above:Performed By: #### CDP, CMPX, LACTIC ####[facility] Kjmftxtmtfbp6154 [place], [place] [phone])[phone] Director: Anna Gilbert.Neutrophil (Seg)22.02 k/uLHigh1.8-7.7Holzer Health SystemComment on above:Performed By: #### CDP, CMPX, LACTIC ####[facility] Nrpqjxeahrsq9774 [place], [place] [phone])[phone] Director: Jose Miguel Davis MDBasophils/100 WBC (Bld)0 %Normal02MVA [facility] Comment on above:Performed By: #### CDP, CMPX, LACTIC ####[facility] Uxvakprozgcn0980 [place], [place] [phone])[phone] Director: Jose Miguel Davis MD Eosinophils (Bld) [#/Vol]0.00 10*3/uLNormal0.0-0.4[facility] Health SystemComment on above:Performed By: #### CDP, CMPX, LACTIC ####[facility] Ngwykpuvhhjy1396 [place], [place] [phone])[phone] Director: Jose Miguel Davis MDEosinophils/100 WBC (Bld)0 %Low1-4[facility] Comment on above:Performed By: #### CDP, CMPX, LACTIC ####[facility] Otnexxkwwyzc4433 [place], [place] [phone])[phone] Director: Jose Miguel Davis MDImmature granulocytes/100 WBC (Bld)0 %Dlxbud8LvijoHolzer Health SystemComment on above:Performed By: #### CDP, CMPX, LACTIC ####[facility] [address] [place] [address] Lab Director: Jose Miguel Davis MDLymphocytes (Bld) [#/Vol]0.97 10*3/uLLow1.0-4.8Hol[facility] Health SystemComment on above:Performed By: #### CDP, CMPX, LACTIC ####[facility] [address] [place] [address] Lab Director: Jose Miguel Davis MDLymphocytes/100 WBC (Bld)4 %Cjf04-57XsknqHolzer Health SystemComment on above:Performed By: #### CDP, CMPX, LACTIC ####[facility] [address] [place] [address]([facility])[phone] Director: BERTO Gilbertonocytes (Bld) [#/Vol]1.21 10*3/uLHigh0.1-0.8Hol[facility] Health SystemComment on above:Performed By: #### CDP, CMPX, LACTIC ####[facility] [address] [place] [address] Lab Director: BERTO Gilbertonocytes/100 WBC (Bld)5 % Normal1-7Holzer Health SystemComment on above:Performed By: #### CDP, CMPX, LACTIC ####[facility] [address]ht[address] [place] [address]([facility])[phone] Director: BERTO Gilbertorphology Kevin (Bld) [Interp] ANISOCYTOSIS PRESENTNormalHolzer Health SystemComment on above: Performed By: #### CDP, CMPX, LACTIC ####[facility] [address] [place] [address] [id number])[phone] Director: Jose Miguel Davis MDNeutrophil (Seg) 91 %Odvn48-86IlpaiHolzer Health SystemComment on above:Performed By: #### CDP, CMPX, LACTIC ####[facility] Mtmryxgegefr7853 [place], [place] [phone])[phone] Director: Jose Miguel Davsi MDErythrocyte distribution width (RBC) [Ratio]16.3 %High11.8-14.4Hol[facility] Health SystemComment on above:Performed By: #### CDP, CMPX, LACTIC ####[facility] Yafenlfjadbh3777 [place], [place] 38010419)[phone] Director: Jose Miguel Davis MDHematocrit (Bld) [Volume fraction]40.8 %Datuil19.3-47.1MVA [facility] CenterComment on above:Performed By: #### CDP, CMPX, LACTIC ####[facility] Ynvdunkevwpz8975 [place], [place] [phone])[phone] Director: Jose Miguel Davis MDHemoglobin (Bld) [Mass/Vol]11.9 g/rYBcqztm36.9-15.1MVA [facility] CenterComment on above:Performed By: #### CDP, CMPX, LACTIC ####[facility] Uprfoofslwhe0543 [place], [place] [phone])[phone] Director: BERTO GilbertCH (RBC) [Entitic mass]27.8 rcClpoec27.2-33.5Holzer Health SystemComment on above:Performed By: #### CDP, CMPX, LACTIC ####[facility] Fkvhmizzyjbl7211 [place], [place] [phone])[phone] Director: BERTO GilbertCHC (RBC) [Mass/Vol]29.2 g/eJYjpmcl76.4-34.8Hol[facility] Health SystemComment on above:Performed By: #### CDP, CMPX, LACTIC ####[facility] Ncywuwrdkqth6298 [facility] [place], [place] [phone])[phone] Director: BERTO GilbertCV (RBC) [Entitic vol]95.3 cJIrnrpx28.6-102.9Holzer Health SystemComment on above:Performed By: #### CDP, CMPX, LACTIC ####[facility] N[address]ytll[address] [place] [address] [phone] Director: JULIO GilbertBC Automated 0.1 per 100 WBCHigh0.0Holzer Health SystemComment on above:Performed By: #### CDP, CMPX, LACTIC ####[facility] [address]qrtsuwfylj[address] [place] [address] [phone] Director: Anamika Gilberttelet mean volume (Bld) [Entitic vol]11.0 fLNormal8.1-13.5Holzer Health SystemComment on above:Performed By: #### CDP, CMPX, LACTIC ####[facility] [address]ffe[address] [place] [address] [phone] Director: Anamika Gilberttelets (Bld) [#/Vol]155 10*3/eWNabgno997-123YmzvtHolzer Health SystemComment on above: Performed By: #### CDP, CMPX, LACTIC ####[facility] [address]zqepmeefwu[address] [place] [address] [phone] Director: ROSSY GilbertBC (Bld) [#/Vol]4.28 10*6/uLNormal3.95-5.11Hol[facility] Health SystemComment on above:Performed By: #### CDP, CMPX, LACTIC ####[facility] [address] [place] [address] [phone] Director: FAIZA GilbertBC (Bld) [#/Vol]24.2 10*3/uLHigh3.5-11.3MVA [facility] CenterComment on above: Performed By: #### CDP, CMPX, LACTIC ####[facility] Vjjxqfwyhtxb4871 [place], [place] [id number])[phone] Director: Isabel Gilbert Metabolic Pr/rfx MGon 67-29-6750Gwdbwig [Mass/Vol]2.3 g/dLLow3.5-5.2Mkettering health springfieldy Davies CampusComment on above:Performed By: #### CDP, CMPX, LACTIC ####[facility] Lcndijafwfdh9711 [place], [place] [phone])[phone] Director: Jose Miguel Davis MDAlbumin/Glob Ratio0.6Low1.0-2.5Holzer Health SystemComment on above:Performed By: #### CDP, CMPX, LACTIC ####[facility] Qykysptzlpvy6629 [place], [place] [phone] Director: Josie Gilbertline Phos 151 U/YEryg71-968XlnysHolzer Health SystemComment on above:Performed By: #### CDP, CMPX, LACTIC ####[facility] Udfmfihsvyrf3525 [place], [place] [phone] Director: Jose Miguel Davis MDALT [Catalytic activity/Vol]33 U/JAtchux41-74MtmplHolzer Health SystemComment on above:Performed By: #### CDP, CMPX, LACTIC ####[facility] Zspboeaascmd3240 [place], [place] [phone])[phone] Director: Kassi Gilbert gap [Moles/Vol]16 mmol/L Normal9-16Holzer Health SystemComment on above:Performed By: #### CDP, CMPX, LACTIC ####[facility] Kltxoxprioxd5242 [place], [place] [phone] Director: Jose Miguel Davis MDAST [Catalytic activity/Vol]45 U/XJthu22-19InhktHolzer Health SystemComment on above:Performed By: #### CDP, CMPX, LACTIC ####[facility] [address] [place], [place] [id number])[phone] Director: Jose Miguel Davis MDBilirubin [Mass/Vol]1.8 mg/dL High0.0-1.2Mkettering health springfieldy Davies CampusComment on above:Performed By: #### CDP, CMPX, LACTIC ####[facility] [address] [place], [place] [id number])[phone] Director: LAURI Gilbertalcium [Mass/Vol]8.5 mg/dLLow 8.6-10.4[facility] Health SystemComment on above:Performed By: #### CDP, CMPX, LACTIC ####[facility] [address] [place], [place] [address])[phone] Director: LAURI Gilberthloride [Moles/Vol]108 mmol/NAsrg38-593IqmtsHolzer Health SystemComment on above:Performed By: #### CDP, CMPX, LACTIC ####[facility] [address] [place], [place] [id number])[phone] Director: Jose Miguel Davis MDCO2 [Moles/Vol]22 mmol/LBjckap35-53CvjekHolzer Health SystemComment on above:Performed By: #### CDP, CMPX, LACTIC ####[facility] [address] [place], [place] [id number])[phone] Director: LAURI Gilbertreatinine [Mass/Vol]1.6 mg/dLHigh0.6-0.9Holzer Health SystemComment on above:Performed By: #### CDP, CMPX, LACTIC ####[facility] [address] [place], [place] [phone] Director: Jose Miguel Davis MDGFR/1.73 sq M.predicted among non-blacks MDRD (S/P/Bld) [Vol rate/Area]33 mL/min/{1.73_m2}Low>60Holzer Health SystemComment on above:Result Comment: These results are not intended for [...] or following therapy that affects renal tubular secretion.Performed By: #### CDP, CMPX, LACTIC ####[facility] Qseojshdujfr[address] [place], [place] [address])[phone] Director: Jose Miguel Davis MDGlucose [Mass/Vol]251 mg/jMOclo15-76BypknVA [facility] CenterComment on above:Performed By: #### CDP, CMPX, LACTIC ####[facility] Cmjmgtfzljel[address] [place], [place] [address])[phone] Director: Jose Miguel Davis MDPotassium [Moles/Vol]4.0 mmol/LNormal3.7-5.3MVA [facility] CenterComment on above:Performed By: #### CDP, CMPX, LACTIC ####[facility] [address] [place] [address])[phone] Director: Jose Miguel Davsi MDProtein [Mass/Vol]6.0 g/dLLow6.6-8.7[facility] Comment on above:Performed By: #### CDP, CMPX, LACTIC ####[facility] W[address]jluxsqpwx[address] [place], [place] [address])[phone] Director: Jose Miguel Davis MDSodium [Moles/Vol]146 mmol/WBfcl511-031RkympHolzer Health SystemComment on above:Performed By: #### CDP, CMPX, LACTIC ####[facility] Idsxftkvrckl59[address] [place], [place] [address])[phone] Director: Jose Miguel Davis MDUrea nitrogen [Mass/Vol]56 mg/dLHigh8-23Holzer Health SystemComment on above: Performed By: #### CDP, CMPX, LACTIC ####[facility] X[address]cwe[address]ryjqw[address] [place] [address] lab Director: Jose Miguel Davis [facility] CITYomprehensive Metabolic Panel w/ Reflex to MGon 21-79-0915Srmtxxg [Mass/Vol]2.3 g/dLLow3.5 - 5.2 g/dLBon [facility] HealthAlbumin/Globulin [Mass ratio]0.6 {ratio}Low1.0 - 2.5Bon SecMadigan Army Medical Centery HealthALP [Catalytic activity/Vol]151 U/LHigh35 - 104 U/L Bon [facility]Leon[facility] HealthALT [Catalytic activity/Vol]33 U/L10 - 35 U/LBon Secours [facility] Medical CenterAnion gap [Moles/Vol]16 mmol/L9 - 16 mmol/LBon SecLeonard J. [facility] Health AST [Catalytic activity/Vol]45 U/LHigh10 - 35 U/LBon [facility] Health Bilirubin [Mass/Vol]1.8 mg/dLHigh0.0 - 1.2 mg/dLBon SecLeonard J. [facility] HealthCalcium [Mass/Vol]8.5 mg/dLLow8.6 - 10.4 mg/dLBon SecLeonard J. [facility] HealthChloride [Moles/Vol]108 mmol/LHigh98 - 107 mmol/LBon SecLeonard J. [facility] HealthCO2 [Moles/Vol] 22 mmol/L20 - 31 mmol/LBon SecSelect Medical Specialty Hospital - Columbus SouthCreatinine [Mass/Vol]1.6 mg/dL High0.6 - 0.9 mg/dLBon SecLeonard J. [facility] HealthEst, Glom Filt Iugk65Pro- PINFBon SecLeonard J. Chabert Medical Center HealthGlucose [Mass/Vol]251 mg/rQCeui18 - 99 mg/dLBon [facility] HealthInterpretation and review of laboratory resultsAbnormalBon SecLeonard J. [facility] HealthPotassium [Moles/Vol]4 mmol/L3.7 - 5.3 mmol/LBon SecLeonard [facility]. [facility] HealthProtein [Mass/Vol]6 g/dLLow6.6 - 8.7 g/dLBon SecLeonard J. [facility] HealthSodium [Moles/Vol]146 mmol/ZIyur988 - 145 mmol/LBon SecLeonard J. [facility] HealthUrea nitrogen [Mass/Vol]56 mg/dLHigh8 - 23 mg/dLBon [facility] HealthBon [facility] HealthEKG 12 LeadOrdered By: Gabby Preciado on [id number] Bhxf86YMHDlvFTL SOLAR Phone: P-R Wyghnnzw495 [employer] Phone: Q-T Ascabxtq793 [employer] Phone: [phone] Loexgpxi31 [employer] Work Phone: QTc Calculation (Bazett)443 [employer] Phone: [phone] [place]-30degrjesFly Victor Phone: T Vqow99dgorungNaqGROUNDFLOOR Phone: Ventricular Gmlm14LTUJab Relevvant Phone: Bon [employer] Phone: EKG 12 Leadon 84-45-1854BKZO STV [facility] Procera NetworksFL UGIon [id number] UGIEXAMINATION: SINGLE CONTRAST UPPER GI SERIES 03/05/2025 HISTORY: [...] head tilted upright approximately 30-40 degrees. Fluoroscopic motor vehicle parts interpreter images of the chest and abdomen were obtained. NG tube traverses the GE junction with distal tip overlying the left upper quadrant likely within the body of the stomach. Drainage catheter or pigtail catheter tube projects over the midline abdomen. mammography supervisor leads overlie the abdomen. Right IJ approach [...] Signed by: Dalton Simmons MD 03/05/25 Final resultNormalDayton Children's Hospital RIS [facility] Centeriology Study observation (narrative)[facility] UGIOrdered By: Dalton Simmons on 12-45-7244Xno [facility] Work Phone: Glucose (POC)on 44-90-5701Bxhyxlt [Mass/Vol]249 mg/dL Vybl17-362BplwyHolzer Health SystemGlucose,Whole Bloodon 03-05-2025 Glucose [Mass/Vol]236 mg/bWLrjf89-433HooteHolzer Health SystemGlucose [Mass/Vol]259 mg/iTCjlv61-114VxqcyHolzer Health SystemGlucose [Mass/Vol] 234 mg/uWTrtg14-455IymvlHolzer Health SystemGlucose [Mass/Vol]228 mg/dL Dxqa29-946HpwfzHolzer Health SystemLactic Acidon 05-40-5266Rkwvmp Acid, Whole Blood2.1 mmol/L0.7 - 2.1 mmol/LBon [facility] Surgery CenterLactic Acid,Whole Bl2.1 mmol/LNormal0.7-2.1Mercy Davies CampusComment on above:Performed By: #### CDP, CMPX, LACTIC ####[place] [address] Lab Director: Jose Miguel Davis MDLactic Acid (POC)on 67-15-5324Jcpufoe [Moles/Vol]1.4 mmol/LHigh 0.56-1.39MerSutter Medical Center, SacramentoLactic Acid, POCon 39-78-0236RCH Lactic Acid1.4 mmol/LHigh0.56 - 1.39 mmol/LBon [facility] CenterNo Panel Informationon 00-02-6588Xvwjwvelajgedy and review of laboratory resultsAbnormal [facility] Glucose Fingerstickon 51-03-0937Opijzkm [Mass/Vol]236 mg/hCCvid18 - 105 mg/dLBon [facility] Interpretation and review of laboratory resultsAbnormLifePoint HealthGlucose [Mass/Vol]259 mg/lQVpem58 - 105 mg/dLBon [facility] CenterInterpretation and review of laboratory resultsAbnormalCentra Lynchburg General HospitalGlucose [Mass/Vol]234 mg/eVNofa22 - 105 mg/dLBon [facility] CenterInterpretation and review of laboratory results AbnormalBon [facility] CenterGlucose [Mass/Vol]228 mg/fQUshq45 - 105 mg/dLBon [facility] CenterInterpretation and review of laboratory resultsAbnormWellmont Health SystemPOCT Glucoseon 78-16-7725Sxruaej [Mass/Vol]249 mg/hFEnpx05 - 100 mg/dLBon [facility] CenterPortable XR Chest AP single viewon 06-75-0589RZZW RIS CONSOLIDATED MHPN RIS [facility] HospitalRadiology Study observation (narrative)[facility] XR Chest AP single viewOrdered By: Alexey López on 67-62-7522Pbk [facility] Work Phone: XR ABDOMEN FOR NG/OG/NE TUBE PLACEMENTon 33-85-1934FP ABDOMEN FOR NG/OG/NE TUBE PLACEMENTEXAMINATION: ONE SUPINE XRAY VIEW(S) OF THE ABDOMEN [...] by: Alex Hoffman IV, MD 03/05/25 Final resultNormalSelect Medical Specialty Hospital - ColumbusPN RIS CONSOLIDATEDPN RIS [facility]OS[facility]ITALBon [facility] CenterRadiology Study observation (narrative)[facility] ABDOMEN FOR NG/OG/NE TUBE PLACEMENTOrdered By: Alex Hoffman on 62-06-6304WlpWellmont Health System [employer] Work Phone: xr CHEST PORTABLEon 56-50-5230FY CHEST PORTABLE EXAMINATION: ONE XRAY VIEW OF [...] Signed by: Alexey López MD 03/05/25 Final resultNormalHolzer Health SystemCB with Auto Differentialon 42-18-1793Zetaiqjmg (Bld) [#/Vol]0 10*3/uLBon [facility] CenterBasophils/100 WBC (Bld)0 %0 - 2 %[facility] HealthEosinophils (Bld) [#/Vol]0 10*3/uLBon Secours [facility] Medical CenterEosinophils/100 WBC (Bld)0 %Low1 - 4 %[facility] Sec[facility] Medical CenterErythrocyte distribution width (RBC) [Ratio]15.9 %High11.8 - 14.4 %Bon Secrom [facility] Medical CenterHematocrit (Bld) [Volume fraction]41.8 %36.3 - 47.1 %[facility] SecSelect Medical Specialty Hospital - Columbus SouthHemoglobin (Bld) [Mass/Vol]12.7 g/dL11.9 - 15.1 g/dLBon Secours [facility] Medical CenterImmature granulocytes (Bld) [#/Vol]0 10*3/uLBon [facility]ours [facility] Medical CenterImmature granulocytes/100 WBC (Bld)0 %0Bon [facility] Interpretation and review of laboratory resultsAbnormalBon [facility] Lymphocytes/100 WBC (Bld)4 %Low24 - 43 %[facility]ra HealthLymphocytes/100 WBC (Bld)0.47 %LowBon SecTrinity Health System East CampusH (RBC) [Entitic mass]27.9 pg25.2 - 33.5 pgBon Secours [facility] Fairfield HospitalHC (RBC) [Mass/Vol]30.4 g/dL28.4 - 34.8 g/dLBon SecSelect Medical Specialty Hospital - Columbus SouthMCV (RBC) [Entitic vol]91.9 fL82.6 - 102.9 fLBon SecSelect Medical Specialty Hospital - Columbus SouthMonocytes/100 WBC (Bld)6 %3 - 12 %[facility] Monocytes/100 WBC (Bld)0.7 %[facility] SecSelect Medical Specialty Hospital - Columbus SouthMorphology Kevin (Bld) [Interp]ANISOCYTOSIS PRESENTBon Secours [facility] Medical CenterNeutrophils/100 WBC (Bld)90 %High36 - 65 %[facility] SecSelect Medical Specialty Hospital - Columbus SouthNucleated RBC/100 WBC (Bld) [Ratio]0 %0.0 per 100 WBCBon SecLeonard J. Chabert Medical Center HealthPlatelet mean volume (Bld) [Entitic vol]10.4 fL8.1 - 13.5 fLBon [facility] HealthPlatelets (Bld) [#/Vol]164 10*3/uLBon Secours [facility] Grant Medical CenterRBC (Bld) [#/Vol]4.55 10*6/uL3.95 - 5.11 m/[facility] Community HospitalSegmented neutrophils/100 WBC (Bld)10.53 %HighCentra HealthWBC other (Bld) [#/Vol]11.7HChesapeake Regional Medical CenterCB with Diffon 93-05-4799Zvd. Basophil0.00 k/uLNormal0.00-0.20Holzer Health SystemComment on above:Performed By: #### CDP, MG, TROPI, CMPX, LACTIC ####[facility] Wwqqnuli[address] [place], [place] [address])[phone] Director: Anna Gilbert.Imm.Granulocyte0.00 k/uLNormal0.00-0.30Holzer Health SystemComment on above:Performed By: #### CDP, MG, TROPI, CMPX, LACTIC ####[facility] [address] [place] [address] Lab Director: Anna Gilbert.Neutrophil (Seg)10.53 k/uLHigh1.50-8.10Holzer Health SystemComment on above:Performed By: #### CDP, MG, TROPI, CMPX, LACTIC ####[facility] [address]upki[address] [place] [address] Lab Director: Jose Miguel Davis MDBasophils/100 WBC (Bld)0 %Normal0-2MVA [facility] CenterComment on above:Performed By: #### CDP, MG, TROPI, CMPX, LACTIC ####[facility] [address]ujt[address]kv[address] [place], [place] [address])[phone] Director: Jose Miguel Davis MDEosinophils (Bld) [#/Vol]0.00 10*3/uLNormal0.00-0.44Holzer Health SystemComment on above:Performed By: #### CDP, MG, TROPI, CMPX, LACTIC ####[facility] Drckkqmmsljk[address] [place] [address] Lab Director: Jose Miguel Davis MDEosinophils/100 WBC (Bld)0 %Low1-4Holzer Health SystemComment on above:Performed By: #### CDP, MG, TROPI, CMPX, LACTIC ####[facility] Kvgyjddghrdg35[address] [place] [address] Lab Director: Jose Miguel Davis MDImmature granulocytes/100 WBC (Bld)0 %Ymsdkw2XhcajHolzer Health SystemComment on above:Performed By: #### CDP, MG, TROPI, CMPX, LACTIC ####[facility] [address]oswjnbivuwo[address] [place] [address] Lab Director: Jose Miguel Davis MDLymphocytes (Bld) [#/Vol]0.47 10*3/uLLow1.10-3.70Holzer Health SystemComment on above:Performed By: #### CDP, MG, TROPI, CMPX, LACTIC ####[facility] Qdwzsfmofnwr27[address] [place] [address] Lab Director: Atul Gilbertmphocytes/100 WBC (Bld)4 %Elj40-63QxpdgHolzer Health SystemComment on above:Performed By: #### CDP, MG, TROPI, CMPX, LACTIC ####[facility] [address]iveqx[address] [place] [address] Lab Director: Jose Miguel Davis MDMonocytes (Bld) [#/Vol]0.70 10*3/uLNormal0.10-1.20 Holzer Health SystemComment on above:Performed By: #### CDP, MG, TROPI, CMPX, LACTIC ####[facility] [address]udujhko[address] [place] [address] Lab Director: Jose Miguel Davis MDMonocytes/100 WBC (Bld)6 %Normal 3-12Holzer Health SystemComment on above:Performed By: #### CDP, MG, TROPI, CMPX, LACTIC ####[facility] [address]yxbbpcluqhi[address] [place] [address] Lab Director: BERTO Gilbertorphology Kevin (Bld) [Interp] ANISOCYTOSIS PRESENTNormalHolzer Health SystemComment on above: Performed By: #### CDP, MG, TROPI, CMPX, LACTIC ####[facility] [address]edbr[address]lhy[address] [place], [place] [phone])[phone] Director: Jose Miguel Davis MD Neutrophil (Seg)90 %Tsap24-04KvqcrHolzer Health SystemComment on above: Performed By: #### CDP, MG, TROPI, CMPX, LACTIC ####[facility] Nkgax[address]ysxhx[address] [place], [place] [phone])[phone] Director: Jose Miguel Davis MD Erythrocyte distribution width (RBC) [Ratio]15.9 %High11.8-14.4Holzer Health SystemComment on above:Performed By: #### CDP, MG, TROPI, CMPX, LACTIC ####[facility] Eclxiylbhlri[address] [place], [place] [id number])[phone] Director: Jose Miguel Davis MDHematocrit (Bld) [Volume fraction]41.8 %Keluek21.3-47.1MVA [facility] CenterComment on above:Performed By: #### CDP, MG, TROPI, CMPX, LACTIC ####[facility] [address]obs[address] [place], [place] [address]19)[phone] Director: Jose Miguel Davis MDHemoglobin (Bld) [Mass/Vol]12.7 g/dLNormal 11.9-15.1MVA [facility] CenterComment on above:Performed By: #### CDP, MG, TROPI, CMPX, LACTIC ####[facility] Ygqulcdtlrqz24[address] [place], [place] [phone])[phone] Director: JOSE ALFREDO Gilbert (RBC) [Entitic mass]27.9 vqGvdjso00.2-33.5Holzer Health SystemComment on above:Performed By: #### CDP, MG, TROPI, CMPX, LACTIC ####[facility] T[address] [place], [place] 15343419)[phone] Director: JOSE ALFREDO GilbertC (RBC) [Mass/Vol]30.4 g/wMQabyli51.4-34.8Holzer Health SystemComment on above:Performed By: #### CDP, MG, TROPI, CMPX, LACTIC ####[facility] [address]h4[address] [place], [place] [address]19)[phone] Director: BERTO GilbertCV (RBC) [Entitic vol]91.9 aAMfidpo96.6-102.9Holzer Health SystemComment on above:Performed By: #### CDP, MG, TROPI, CMPX, LACTIC ####[facility] Wfcmvvhhoqnx28[address] [place], [place] [address]19)[phone] Director: Jose Miguel Davis MDNRBC Automated0.0 per 100 WBCNormal0.0Holzer Health SystemComment on above:Performed By: #### CDP, MG, TROPI, CMPX, LACTIC ####[facility] [address] [place], [place] [address]19)[phone] Director: Anamika Gilberttelet mean volume (Bld) [Entitic vol]10.4 fLNormal8.1-13.5Holzer Health SystemComment on above:Performed By: #### CDP, MG, TROPI, CMPX, LACTIC ####[facility] [address]owgtcleho[address] [place], [place] [phone])[phone] Director: BETITO Gilbertlatelets (Bld) [#/Vol]164 10*3/sPMfqiij247-572SmtunSutter Medical Center, SacramentoComment on above:Performed By: #### CDP, MG, TROPI, CMPX, LACTIC ####[facility] [address]ymjbvmsjx8023 [place] [address] Lab Director: ROSSY Gilbert ([facility]) [#/Vol]4.55 10*6/uLNormal3.95-5.11Park[facility] Healthcy Davies CampusComment on above:Performed By: #### CDP, MG, TROPI, CMPX, LACTIC ####[facility] [address]vel[address]ak[address] [place] [address] Lab Director: FAIZA Gilbert ([facility]) [#/Vol]11.7 10*3/uLHigh3.5-11.3MVA [facility] CenterComment on above:Performed By: #### CDP, MG, TROPI, CMPX, LACTIC ####[facility] Eexq[address]wpunbw[address] [place] [address] Lab Director: Jose Miguel Davis [facility] CITYardiac echo study Procedureon [id number] Root Index1.38 cm/m2[facility] HealthAortic Root2.7 cmBon Secours Mercy HealthAscending Aorta3 cmBon Secours Mer[facility] HealthAscending Aorta Index1.53 cm/m2[facility] HealthAV Area by Peak Velocity1.5 cm2[facility] HealthAV Area by VTI1.4 cm2[facility] HealthAV Mean Czevtyka09rsMrGuo [facility] AV Mean Velocity1.6 m/sBon Secours Mercy HealthAV Peak Gvktufbp33wrLtCim Secours Mercy HealthAV Peak Velocity2.3 m/sBon Secours Mercy HealthAV Velocity Ratio 0.52Bon [facility] HealthAV VTI39.3 cmBon [facility]ours [facility] HealthAVA/BSA Peak Velocity0.8 cm2/m2[facility] HealthAVA/BSA VTI0.7 cm2/m2[facility] HealthBody surface area Derived from formula2.08 m2[facility] HealthE/E' Gujgxlm45.98[facility] HealthE/E' Ratio (Averaged)9.29[facility] HealthE/E' Septal7.6[facility] HealthEF BP60 %55 - 100 %[facility] HealthEF Guvewftqx40 %[facility] HealthEst. RA Ujexoauq0atGbVhz Secours [facility] HealthFractional Shortening 2D39 %28 - 44 %[facility] Interpretation and review of laboratory resultsAbnormalBon [facility] IVC Proxmal2.3 cmBon Secours Mercy HealthIVSd1.2 cmAbnormal0.6 - 0.9 cmBon Secours Mercy HealthLA Diameter3.4 cmBon Secours Mercy HealthLA Size Index1.73 cm/m2[facility] HealthLA/AO Root Ratio1.26Bon [facility] HealthLV E' Lateral Velocity8.38 cm/sBon Secours Mercy HealthLV E' Septal Qimvnlds59.1 cm/s [facility] HealthLV EDV A2C91 mLBon Secours Mercy HealthLV EDV A4C98 mL [facility] Mer[facility] HealthLV EDV Index A2C46 mL/m2Bon [facility] Mercy HealthLV EDV Index A4C50 mL/m2[facility] Mer[facility] HealthLV Ejection Fraction A2C55 %[facility] Mer[facility] HealthLV Ejection Fraction A4C81 %[facility] Mer[facility] HealthLV ESV A2C41 mL [facility] Mer[facility] HealthLV ESV A4C19 mLBon Secours Mercy HealthLV ESV Index A2C 21 mL/m2Bon [facility] Mercy HealthLV ESV Index A4C10 mL/m2[facility] LV Mass 2D226.4 tEfvfizaf64 - 162 gBon Secours Mercy HealthLV Mass 2D Ucjak992.5 g/n7Pvnhicvq88 - 95 g/m2[facility] HealthLV RWT Ratio0.49[facility] HealthLVIDd4.9 cm3.9 - 5.3 cmBon Secours Mercy HealthLVIDd Index2.5 cm/m2 [facility] HealthLVIDs3 cmBon Secours Mercy HealthLVIDs Index1.53 cm/m2 [facility] HealthLVOT Area2.8 cm2Bon [facility] HealthLVOT Diameter1.9 cmBon Secours Mercy HealthLVOT Mean Cbopluna9ldZpEev Secours Mercy HealthLVOT Peak Abevlrnj2zvBjPsm Secours [facility] HealthLVOT Peak Velocity1.2 m/sBon SecSelect Medical Specialty Hospital - Columbus SouthLVOT Stroke Volume Index28.6 mL/m2[facility] SecMadigan Army Medical Centery HealthLVOT SV 56.1 mlCentra HealthLVOT VTI19.8 cmAbrazo Arrowhead Campus SecMadigan Army Medical Centery HealthLVOT:AV VTI Index0.5Bon SecSelect Medical Specialty Hospital - Columbus SouthLVPWd1.2 cmAbnormal0.6 - 0.9 cmCentra HealthMV A Velocity0.71 m/sBon [facility] CenterMV Area by VTI1.7 cm2 Centra HealthMV E Velocity0.92 m/sBon SecSelect Medical Specialty Hospital - Columbus SouthMV E Wave Deceleration Szvu715 msCentra HealthMV E/A1.3Bon SecSelect [facility] South MV Max Velocity1.1 m/sBon [facility] CenterMV Mean Pywsrvqq3xtSrAywCentra HealthMV Mean Velocity0.7 m/sBon [facility] CenterMV Peak Xmllrsiq4ilHs Centra HealthMV VTI33.3 cmCentra HealthMV:LVOT VTI Index 1.68Centra HealthRV Free Wall Peak S'16 cm/sBon SecLeonard J. [facility] Health YBOD79gyFkYxxCentra HealthTAPSE1.8 cm1.7 cmCentra HealthTR Max Velocity2.62 m/sBon [facility] CenterTR Peak Matmjrfp60khHbAbrCentra HealthBSMH CV CPACSCentra HealthRadiology Study observation (narrative)Centra HealthComp Metabolic Pr/rfx MGon 67-98-7065Nmbpqin [Mass/Vol]2.4 g/dLLow3.5-5.2[facility] Davies CampusComment on above: Performed By: #### CDP, MG, TROPI, CMPX, LACTIC ####[facility] [address] [place] [address] Lab Director: Jose Miguel Davis MD Albumin/Glob Ratio0.7Low1.0-2.5Holzer Health SystemComment on above: Performed By: #### CDP, MG, TROPI, CMPX, LACTIC ####[facility] M[address]lmbjwlxjj[address] [place], [place] [phone] Director: Shiela Gilbert Phos66 U/IDvapya67-016MsdpnHolzer Health SystemComment on above:Performed By: #### CDP, MG, TROPI, CMPX, LACTIC ####[facility] Zwscaarplndi3[address] [place], [place] [phone] Director: Jose Miguel Davis MDALT [Catalytic activity/Vol]33 U/ODsaemg31-87ImpquHolzer Health SystemComment on above: Performed By: #### CDP, MG, TROPI, CMPX, LACTIC ####[facility] [address] [place] [address] [phone] Director: Kassi Gilbert gap [Moles/Vol]13 mmol/LNormal9-16Holzer Health SystemComment on above: Performed By: #### CDP, MG, TROPI, CMPX, LACTIC ####[facility] [address]qufkfccy[address] [place] [address] [phone] Director: Jose Miguel Davis MDAST [Catalytic activity/Vol]29 U/UFeipsf49-47HjlniHolzer Health SystemComment on above:Performed By: #### CDP, MG, TROPI, CMPX, LACTIC ####[facility] Wtolztecgkux[address] [place] [address] Lab Director: Jose Miguel Davis MDBilirubin [Mass/Vol]1.3 mg/dLHigh0.0-1.2MVA [facility] CenterComment on above:Performed By: #### CDP, MG, TROPI, CMPX, LACTIC ####[facility] Qksvlljsbsol[address]24 [place], [place] [phone] Director: Jose Miguel Davis MDCalcium [Mass/Vol]8.4 mg/dLLow8.6-10.4[facility] Comment on above:Performed By: #### CDP, MG, TROPI, CMPX, LACTIC ####[facility] Kolpfhbhtgsg[address] [place] [address] Lab Director: LAURI Gilberthloride [Moles/Vol]102 mmol/CSfvjmo13-027ZsnwqHolzer Health SystemComment on above:Performed By: #### CDP, MG, TROPI, CMPX, LACTIC ####[facility] [address]evplmpskclj[address]25 [place] [address] Lab Director: Jose Miguel Davis MDCO2 [Moles/Vol]26 mmol/AItcrkj51-14PapzmHolzer Health System Comment on above:Performed By: #### CDP, MG, TROPI, CMPX, LACTIC ####[facility] [address]eng[address] [place] [address] Lab Director: LAURI Gilbertreatinine [Mass/Vol]1.5 mg/dLHigh0.6-0.9Holzer Health SystemComment on above:Performed By: #### CDP, MG, TROPI, CMPX, LACTIC ####[facility] [address]yr[address] [place] [address] Lab Director: Jose Miguel Davis MDGFR/1.73 sq M.predicted among non-blacks MDRD (S/P/Bld) [Vol rate/Area]36 mL/min/{1.73_m2}Low>60Holzer Health SystemComment on above:Result Comment: These results are not intended for [...] or following therapy that affects renal tubular secretion.Performed By: #### CDP, MG, TROPI, CMPX, LACTIC ####[facility] [address] [place] [phone] Director: Jose Miguel Davis MDGlucose [Mass/Vol]191 mg/xMOoqr23-87PusaxSan Luis Obispo General HospitalComment on above:Performed By: #### CDP, MG, TROPI, CMPX, LACTIC ####[facility] Nduddhqvkitp[address] [place], [place] [address])[phone] Director: Jose Miguel Davis MDPotassium [Moles/Vol]3.5 mmol/LLow3.7-5.3 [facility] Health SystemComment on above:Result Comment: Specimen hemolysis has exceeded the interference as defined by Ranjith. Value may be falsely increased. Suggest recollection if clinically indicated.Performed By: #### CDP, MG, TROPI, CMPX, LACTIC ####[facility] [address]pq[address] [place], [place] [address])[phone] Director: Jose Miguel Davis MDProtein [Mass/Vol]5.9 g/dL Low6.6-8.7Holzer Health SystemComment on above:Performed By: #### CDP, MG, TROPI, CMPX, LACTIC ####[facility] Yazusmszjfzy[address] [place], [place] [address])[phone] Director: Jose Miguel Davis MDSodium [Moles/Vol]141 mmol/L Xqqmba893-591LvodtHolzer Health SystemComment on above:Performed By: #### CDP, MG, TROPI, CMPX, LACTIC ####[facility] Lmx[address]ibtrljbz[address] [place], [place] [address])[phone] Director: Jose Miguel Davis MDUrea nitrogen [Mass/Vol]56 mg/dLHigh8-23Holzer Health SystemComment on above:Performed By: #### CDP, MG, TROPI, CMPX, LACTIC ####[facility] Ivmo[address]qnedo[address] [place], [place] [address])[phone] Director: LAURI Gilbertomprehensive Metabolic Panel w/ Reflex to MGon 49-56-3325Kiiwwkj [Mass/Vol]2.4 g/dLLow3.5 - 5.2 g/dLBon [facility] HealthAlbumin/Globulin [Mass ratio]0.7 {ratio}Low1.0 - 2.5Bon [facility] HealthALP [Catalytic activity/Vol]66 U/L35 - 104 U/LBon Secours [facility] Medical [facility] HealthALT [Catalytic activity/Vol]33 U/L10 - 35 U/LBon [facility] HealthAnion gap [Moles/Vol]13 mmol/L9 - 16 mmol/L[facility] HealthAST [Catalytic activity/Vol]29 U/L10 - 35 U/LBon [facility] HealthBilirubin [Mass/Vol]1.3 mg/dLHigh0.0 - 1.2 mg/dLBon [facility], [facility] HealthCalcium [Mass/Vol] 8.4 mg/dLLow8.6 - 10.4 mg/dLBon [facility], [facility] HealthChloride [Moles/Vol]102 mmol/L98 - 107 mmol/LBon [facility] HealthCO2 [Moles/Vol]26 mmol/L20 - 31 mmol/LBon [facility]Leon[facility] HealthCreatinine [Mass/Vol]1.5 mg/dLHigh0.6 - 0.9 mg/dL Bon [facility] HealthEst, Glom Filt Lyzr80Nqq- PINFBon SecLeonard J. [facility] Health Glucose [Mass/Vol]191 mg/eZRwzo15 - 99 mg/dLBon [facility]Leon[facility]. [facility] HealthPotassium [Moles/Vol]3.5 mmol/LLow3.7 - 5.3 mmol/LBon [facility]Leon[facility] HealthProtein [Mass/Vol]5.9 g/dLLow6.6 - 8.7 g/dLBon [facility] HealthSodium [Moles/Vol]141 mmol/L136 - 145 mmol/LBon [facility] HealthUrea nitrogen [Mass/Vol]56 mg/dL High8 - 23 mg/dLBon [facility] HealthCult,Urineon 68-48-0759Icbv,Urine Specimen Description .CLEAN CATCH URINE Special Requests Site: Urine Culture NO GROWTH Report Status FINAL 03/04/2025NormalMercy Davies CampusComment on above:Performed By: #### URC ####Tab [address] [place] [address] [facility] Director: Jose Miguel Davis, [facility] OKLAH[facility] CITYulture, Urineon 03-04-2025 Microorganism identified Cx Nom (Unsp spec)NO GROWTHBon [employer] Service comment (Unsp spec) [Interp]Site: [facility] Procera NetworksSpecimen Description.CLEAN CATCH URINEAbrazo Arrow[facility] Campus Somoto [facility] Pro[employer]a NetworksEKG 12 LeadOrdered By: Malick Dodson on 22-55-8642Xlrwoc Oelj37VMZKdt [facility] [facility] Work Phone: [phone] Dfqb65hzcnnthLaq [facility] Work Phone: [phone]-R Febdqofh757 msBon [facility] Work Phone: [phone]-T Gstgrgzs508 msBon SecOncol[employer] Work Phone: [phone] Huqatdgg755 msBioTrove SecOncolytics Biotech Work Phone: [phone] Calculation (Bazett)502 msABOVE Solutions Work Phone: [phone] [place]-52degreesABOVE Solutions Work Phone: [phone] Xrqg969kjopyhxQzpQuantum OPS Work Phone: [phone] Rrfp04HPTSzl SecOncol[employer] Biotech Work Phone: [phone] [employer] Work Phone: [phone] 12 Leadon 04-94-4364WMBT STV MUSEAbrazo Arrowhead Campus [employer] [facility], IncHome LeasingGlucose,Whole Bloodon 34-18-6692Llhhioz [Mass/Vol]124 mg/zRPikw53-435 [facility] Health SystemGlucose [Mass/Vol]156 mg/sIHyig14-099TwkjoHolzer Health SystemGlucose [Mass/Vol]176 mg/pTJfqz56-059YksyuHolzer Health SystemGlucose [Mass/Vol]191 mg/vQXuqm70-901LhvikHolzer Health SystemGlucose [Mass/Vol]159 mg/gCIuci91-618IfhqmHolzer Health SystemIR CHOLECYSTOSTOMY PERCUTANEOUS COMPLETEon 25-52-3283QRER RIS CONSOLIDATEDPN RIS [facility] Obici HospitalRadiology Study observation (narrative)Bon [facility] DistrictMy [employer] [facility] HospitalIR CHOLECYSTOSTOMY PERCUTANEOUS COMPLETEOrdered By: Tanner Baez on 84-45-8769Zcw [facility] Work Phone: K (Potassium)on 47-06-4785Kozkvlwde [Moles/Vol]3.4 mmol/LLow3.7-5.3Mercy Davies CampusComment on above:Performed By: #### TROPI, K ####MercMy [facility] Kaalbdyspuac[address] [place], [place] [phone] Director: Jose Miguel Davis MDLactic Acidon 57-47-8335Cgqtqr Acid, Whole Blood1.8 mmol/L0.7 - 2.1 mmol/LBon [facility] Lactic Acid,Whole Bl1.8 mmol/LNormal0.7-2.1[facility] Comment on above:Performed By: #### CDP, MG, TROPI, CMPX, LACTIC ####[employer] [employer] [facility] Qhavsolmmuxd7857 [place], [place] 2940908 Lab Director: MARLYN Gilbert DNA Probe, Nasalon 46-23-5202QSIT, DNA, NasalNegativeNEGATIVECentra HealthSpecimen Description.NASAL SWABBon [facility] CenterMRSA, DNA, Nasalon 74-21-5791JFYB, DNA, NasalNegativeNormal NEGMercy Davies CampusComment on above:Result Comment: NEGATIVE: MRSA DNA not detected by nucleic acid amplification. Results should be used as an adjunct to nosocomial control efforts to identify patients needing enhanced precautions. The test is not intended to identify patients with staphylococcal infections. Results should not be used to guide or monitor treatment for MRSA infections. Performed By: #### MRSANO ####[facility] [employer] [facility] Jqkofrxmkpud23[address] [place], [place] [address] lab Director: Jose Miguel Davis MDMagnesiumon 03-04-2025 Magnesium [Mass/Vol]2.2 mg/dL1.6 - 2.4 mg/dLBon [facility] Surgery CenterMagnesium [Mass/Vol]2.2 mg/dLNormal1.6-2.4Hol[facility] Health SystemComment on above:Performed By: #### CDP, MG, TROPI, CMPX, LACTIC ####[facility] [address]ns[address]ucspcg[address] [place] [address] Lab Director: Jose Miguel Davis MDNo Panel Informationon 37-13-6758Ahhcmihnjgubxj and review of laboratory resultsAbnormWellmont Health System Interpretation and review of laboratory resultsAbnormLifePoint HealthPO Glucose Fingerstickon 49-72-0807Hutcsgx [Mass/Vol] 124 mg/kNIlzb78 - 105 mg/dLBon [facility] CenterInterpretation and review of laboratory resultsAbnormWellmont Health System Glucose [Mass/Vol]156 mg/vLNpyb32 - 105 mg/dLBon [facility] Interpretation and review of laboratory resultsAbnormalLifepoint HealthGlucose [Mass/Vol]176 mg/bSHtuu49 - 105 mg/dLBon [facility] CenterInterpretation and review of laboratory resultsAbnormalCentra Lynchburg General HospitalGlucose [Mass/Vol]191 mg/bGXcoc22 - 105 mg/dLBon [facility] CenterInterpretation and review of laboratory results AbnormalBon [facility] CenterGlucose [Mass/Vol]159 mg/vGJpfj64 - 105 mg/dLBon [facility] CenterInterpretation and review of laboratory resultsAbnormWellmont Health System Potassiumon 49-35-1470Azrhjbzni [Moles/Vol]3.4 mmol/LLow3.7 - 5.3 mmol/LBon [facility] CenterTroponinon 87-12-1836Wlxsdlubggzuvz and review of laboratory resultsAbCarilion Giles Memorial HospitalTroponin I.cardiac High sensitivity method [Mass/Vol]112 ng/LCritically high0 - 14 ng/LBon [facility] CenterTroponin, High Fbbq006 ng/LCritically high0-14Hol[facility] Health SystemComment on above:Result Comment: High Sensitivity Troponin values cannot be compared with other Troponin methodologies. Previous Alert Value ReportedPerformed By: #### TROPI ####[facility] [address] [place] [address] Lab Director: Suhail Gilbert I.cardiac High sensitivity method [Mass/Vol]83 ng/LCritically high0 - 14 ng/L Bon [facility] CenterTroponin, High Sens83 ng/LCritically high0-14[facility] Health SystemComment on above:Result Comment: High Sensitivity Troponin values cannot be compared with other Troponin methodologies. Previous Alert Value ReportedPerformed By: #### TROPI, K ####[address] [address] Lab Director: Jose Miguel Davis MDInterpretation and review of laboratory resultsAbnormCJW Medical CenterTroponin I.cardiac High sensitivity method [Mass/Vol]90 ng/L Critically high0 - 14 ng/LBon [facility] Troponin, High Sens90 ng/LCritically high0-14[facility] Comment on above:Result Comment: High Sensitivity Troponin values cannot be compared with other Troponin methodologies. Previous Alert Value ReportedPerformed By: #### TROPI ####[facility] [address] [place] [address] Lab Director: Suhail Gilbert I.cardiac High sensitivity method [Mass/Vol]101 ng/LCritically high0 - 14 ng/L Centra HealthTroponin, High Sisa473 ng/LCritically high0-14[facility] Health SystemComment on above:Result Comment: High Sensitivity Troponin values cannot be compared with other Troponin methodologies. Previous Alert Value ReportedPerformed By: #### CDP, MG, TROPI, CMPX, LACTIC ####[facility] [address] [place] [phone] Lab Director: Asim Gilbert Metabolic Panelon 82-13-6707Qzdfh gap [Moles/Vol]14 mmol/L9 - 16 mmol/LBon [facility] HealthCalcium [Mass/Vol]8.4 mg/dLLow8.6 - 10.4 mg/dLBon [facility] HealthChloride [Moles/Vol]102 mmol/L98 - 107 mmol/L Bon [facility] HealthCO2 [Moles/Vol]24 mmol/L20 - 31 mmol/LBon [facility] CenterCreatinine [Mass/Vol]1.7 mg/dLHigh0.6 - 0.9 mg/dLBon [facility] Est, Glom Filt Glyl47Pyg- PINFBon [facility] CenterGlucose [Mass/Vol]205 mg/mJMlqw31 - 99 mg/dLBon [facility] CenterInterpretation and review of laboratory resultsAbnormalBon [facility] HealthPotassium [Moles/Vol]3.4 mmol/LLow3.7 - 5.3 mmol/LBon [facility] CenterSodium [Moles/Vol]140 mmol/L136 - 145 mmol/LBon [facility] CenterUrea nitrogen [Mass/Vol]57 mg/dLHigh8 - 23 mg/dLBon [facility] CenterBasic Metabolic Profon 07-00-5737Kolik gap [Moles/Vol]14 mmol/LNormal9-16[facility] Health SystemComment on above:Performed By: #### BMP ####[employer] [address] [place] [address] Lab Director: LAURI Gilbertalcium [Mass/Vol]8.4 mg/dLLow8.6-10.4[facility] Health SystemComment on above: Performed By: #### BMP ####[employer] [address]qms[address]ccsdjx4[address] [place] [address] Lab Director: Jose Miguel Davis MDChloride [Moles/Vol]102 mmol/L Tdihax75-045PxiqeHolzer Health SystemComment on above:Performed By: #### BMP ####[employer] [address] [place] [id number] Lab Director: Jose Miguel Davis MDCO2 [Moles/Vol]24 mmol/KDdpgir20-67VeggfHolzer Health SystemComment on above:Performed By: #### BMP ####[facility] [address]zjitmwndffu360[address] [place] [address] Lab Director: LAURI Gilbertreatinine [Mass/Vol]1.7 mg/dLHigh0.6-0.9[facility] Health SystemComment on above:Performed By: #### BMP ####[facility] Levcfcmjifpu0668 [place] [address] Lab Director: Jose Miguel Davis MDGFR/1.73 sq M.predicted among non-blacks MDRD (S/P/Bld) [Vol rate/Area]31 mL/min/{1.73_m2} Low>60Hol[facility] Health SystemComment on above:Result Comment: These results are not intended for [...] or following therapy that affects renal tubular secretion.Performed By: #### BMP ####MercDuogouIkso[address]xlmnfr[address] [place] [address] Lab Director: Jose Miguel Davis MDGlucose [Mass/Vol]205 mg/mITrhz80-08[facility] Comment on above:Performed By: #### BMP ####[facility] [address]rxkkw[address] [place] [address] Lab Director: BETITO Gilbertotassium [Moles/Vol]3.4 mmol/LLow3.7-5.3MVA [facility] CenterComment on above: Result Comment: Specimen hemolysis has exceeded the interference as defined by Ranjith. Value may be falsely increased. Suggest recollection if clinically indicated.Performed By: #### BMP ####[employer] [place] [address] Lab Director: ABNER Gilbertodium [Moles/Vol]140 mmol/PCendoi064-491DkjhyHolzer Health SystemComment on above:Performed By: #### BMP ####[facility] [address]ls[address] [place] [address] Lab Director: Jose Miguel Davis MDUrea nitrogen [Mass/Vol]57 mg/dLHigh8-23Hol[facility] Health SystemComment on above:Performed By: #### BMP ####[facility] Z[address]azwgzneifv[address]84 [place] [address] Lab Director: LAURI Gilbertshamar 03-03-2025 Erythrocyte distribution width (RBC) [Ratio]15.8 %High11.8 - 14.4 %Centra HealthHematocrit (Bld) [Volume fraction]41.8 %36.3 - 47.1 %Centra HealthHemoglobin (Bld) [Mass/Vol]12.8 g/dL11.9 - 15.1 g/dLBon [facility] CenterInterpretation and review of laboratory resultsAbnormalChildren's Hospital of Richmond at V[facility] (RBC) [Entitic mass]27.9 pg25.2 - 33.5 pgInova Fair Oaks HospitalHC (RBC) [Mass/Vol]30.6 g/dL28.4 - 34.8 g/dLBon [facility] HospitalV (RBC) [Entitic vol]91.3 fL82.6 - 102.9 fLCentra HealthNucleated RBC/100 WBC (Bld) [Ratio]0.2 %High0.0 per 100 WBCCentra Health Platelet mean volume (Bld) [Entitic vol]10.5 fL8.1 - 13.5 fLCentra HealthPlatelets (Bld) [#/Vol]189 10*3/uLBon [facility] CenterRBC (Bld) [#/Vol]4.58 10*6/uL3.95 - 5.11 m/uLCentra HealthWBC other (Bld) [#/Vol]12.6Hbroaddus hospitalBon [facility] CenterBon SecSelect Medical Specialty Hospital - Columbus SouthErythrocyte distribution width (RBC) [Ratio]15.8 %High11.8-14.4Hol[facility] Health SystemComment on above:Performed By: #### CP, CBC ####[facility] [address] [place], [place] [id number])[phone] Director: Jose Miguel Davis MD Hematocrit (Bld) [Volume fraction]41.8 %Qjmrax53.3-47.1MVA [facility] CenterComment on above:Performed By: #### CP, CBC ####[facility] Cvgcisc[address] [place] [address] [phone] Director: Jose Miguel Davis MD Hemoglobin (Bld) [Mass/Vol]12.8 g/sWCjdwkj94.9-15.1MVA [facility] CenterComment on above:Performed By: #### CP, CBC ####[facility] [address]um[address] [place] [address] [phone] Director: BERTO GilbertCH (RBC) [Entitic mass]27.9 hySwtxcx19.2-33.5Hol[facility] Health SystemComment on above:Performed By: #### CP, CBC ####[facility] Ybbfym[address]wwos[address] [place], [place] [id number])[phone] Director: JOSE ALFREDO GilbertC (RBC) [Mass/Vol]30.6 g/dL Icskja61.4-34.8Hol[facility] Health SystemComment on above:Performed By: #### CP, CBC ####[facility] Aclbclbptqiw8[address] [place], [place] [id number])[phone] Director: BERTO GilbertCV (RBC) [Entitic vol]91.3 fLNormal 82.6-102.9Hol[facility] Health SystemComment on above:Performed By: #### CP, CBC ####[facility] [address] [place] [address] [phone])[phone] Director: Jose Miguel Davis MDNRBC Automated0.2 per 100 WBCHigh0.0Holzer Health SystemComment on above:Performed By: #### CP, CBC ####[facility] Wrxkdqehtxvm7640 [place], [place] [id number])[phone] Director: Jose Miguel Davis MDPlatelet mean volume (Bld) [Entitic vol]10.5 fLNormal8.1-13.5Hol[facility] Health SystemComment on above:Performed By: #### CP, CBC ####[facility] [address]pz[address]lch17[address] [place], [place] [id number])[phone] Director: Jose Miguel Davis MDPlatelets (Bld) [#/Vol]189 10*3/tDPjftzc538-837UspzfHolzer Health SystemComment on above:Performed By: #### CP, CBC ####[facility] Zvygwtpuacis1831 [place], [place] [id number])[phone] Director: Jose Miguel Davis MDRBC (Bld) [#/Vol]4.58 10*6/uLNormal3.95-5.11[facility] Health SystemComment on above:Performed By: #### CP, CBC ####[facility] Zpcdnsboizqe1089 [place], [place] [address])[phone] Director: Jose Miguel Davis MDWBC (Bld) [#/Vol]12.6 10*3/uLHigh3.5-11.3MVA [facility] CenterComment on above:Performed By: #### CP, CBC ####[facility] Illswx[address]hfa[address] [place], [place] [id number])[phone] Director: LAURI GilbertBC with Auto Differentialon 91-12-0859Tzelmcsqh (Bld) [#/Vol]0 10*3/uLBon [facility] HealthBasophils/100 WBC (Bld)0 %0 - 2 %[facility] HealthEosinophils (Bld) [#/Vol]0 10*3/uLBon [facility] Hospitalrom [facility] Medical CenterEosinophils/100 WBC (Bld)0 %Low1 - 4 %Centra HealthErythrocyte distribution width (RBC) [Ratio]15.7 %High11.8 - 14.4 %[facility]ra HealthHematocrit (Bld) [Volume fraction]41.7 %36.3 - 47.1 %[facility]ra HealthHemoglobin (Bld) [Mass/Vol]12.6 g/dL11.9 - 15.1 g/dLBon Secours [facility] Grant Medical CenterImmature granulocytes (Bld) [#/Vol]0.12 10*3/uLBon [facility] CenterImmature granulocytes/100 WBC (Bld)1 %Vdwc3KaaCentra Health Interpretation and review of laboratory resultsAbnormalCentra Health Lymphocytes/100 WBC (Bld)6 %Low24 - 44 %Centra HealthLymphocytes/100 WBC (Bld)0.7 %LowBon [facility] HospitalH (RBC) [Entitic mass]27.8 pg25.2 - 33.5 pgBon SecTrinity Health System East CampusHC (RBC) [Mass/Vol]30.2 g/dL28.4 - 34.8 g/dLBon SecTrinity Health System East CampusV (RBC) [Entitic vol]92.1 fL82.6 - 102.9 fLCentra HealthMonocytes/100 WBC (Bld)7 %1 - 7 %[facility] Monocytes/100 WBC (Bld)0.82 %HighCentra HealthMorphology Kevin (Bld) [Interp]ANISOCYTOSIS PRESENTBon [facility] CenterNeutrophils/100 WBC (Bld)86 %High36 - 66 %Centra HealthNucleated RBC/100 WBC (Bld) [Ratio]0.2 % High0.0 per 100 WBCBon [facility] Medical CenterPlatelet mean volume (Bld) [Entitic vol]10.3 fL8.1 - 13.5 fLBon SecLeonard J. Chab[facility] Center HealthPlatelets (Bld) [#/Vol]167 10*3/uLBon Secours [facility] Grant Medical CenterRBC (Bld) [#/Vol]4.53 10*6/uL3.95 - 5.11 m/uLCentra HealthSegmented neutrophils/100 WBC (Bld)10.06 %HighCentra HealthWBC other (Bld) [#/Vol]11.7HChesapeake Regional Medical CenterCB with Diffon 56-93-9922Iqo. Basophil0.00 k/uLNormal0.0-0.2MVA [facility] CenterComment on above:Performed By: #### CMPX, PT, CDP, MG ####[facility] Ptyletnrbjhp[address] [place], [place] [address])[phone] Director: Anna Gilbert.Imm.Granulocyte0.12 k/uLNormal0.00-0.30Hol[facility] Health SystemComment on above:Performed By: #### CMPX, PT, CDP, MG ####[facility] [address] [place], [place] [address])[phone] Director: Anna Gilbert.Neutrophil (Seg)10.06 k/uLHigh1.8-7.7Hol[facility] Health SystemComment on above:Performed By: #### CMPX, PT, CDP, MG ####[facility] [address] [place] [address] Lab Director: Jose Miguel Davis MDBasophils/100 WBC (Bld)0 %Normal0-2MVA [facility] Comment on above:Performed By: #### CMPX, PT, CDP, MG ####[facility] Slwpopfuycnq34[address] [place], [place] [address])[phone] Director: Jose Miguel Davis MD Eosinophils (Bld) [#/Vol]0.00 10*3/uLNormal0.0-0.4Hol[facility] Health SystemComment on above:Performed By: #### CMPX, PT, CDP, MG ####[facility] [address] [place], [place] [id number])[phone] Director: Jose Miguel Davis MDEosinophils/100 WBC (Bld)0 %Low1-4[facility] Comment on above:Performed By: #### CMPX, PT, CDP, MG ####[facility] Tglmwoifwqxq9527 [place], [place] [id number])[phone] Director: Jose Miguel Davis MDImmature granulocytes/100 WBC (Bld)1 %Echm2NekzjHolzer Health SystemComment on above:Performed By: #### CMPX, PT, CDP, MG ####[facility] Fxdubxbqvrgi[address] [place], [place] [address])[phone] Director: Jose Miguel Davis MDLymphocytes (Bld) [#/Vol]0.70 10*3/uLLow1.0-4.8[facility] Health SystemComment on above:Performed By: #### CMPX, PT, CDP, MG ####[facility] Agctjktqmlay[address] [place] [address] Lab Director: Jose Miguel Davis MDLymphocytes/100 WBC (Bld)6 %Lfn33-16EedcfHolzer Health SystemComment on above:Performed By: #### CMPX, PT, CDP, MG ####[facility] Dkytbnzpnruk4[address] [place], [place] [id number])[phone] Director: BERTO Gilbertonocytes (Bld) [#/Vol]0.82 10*3/uLHigh0.1-0.8[facility] Health SystemComment on above:Performed By: #### CMPX, PT, CDP, MG ####[facility] Qevzflgdpikh8701 [place] [address] Lab Director: Jose Miguel Davis MDMonocytes/100 WBC (Bld)7 % Normal1-7Hol[facility] Health SystemComment on above:Performed By: #### CMPX, PT, CDP, MG ####[facility] [address]zvwor[address] [place] [address] Lab Director: BERTO Gilbertorphology Kevin (Bld) [Interp] ANISOCYTOSIS PRESENTNormalHolzer Health SystemComment on above: Performed By: #### CMPX, PT, CDP, MG ####[facility] [address] [place] [address] Lab Director: Jose Miguel Davis MDNeutrophil (Seg) 86 %Bnlp87-01IelqdHolzer Health SystemComment on above:Performed By: #### CMPX, PT, CDP, MG ####[facility] [address] [place] [address] Lab Director: Jose Miguel Davis MDErythrocyte distribution width (RBC) [Ratio]15.7 %High11.8-14.4[facility] Health SystemComment on above:Performed By: #### CMPX, PT, CDP, MG ####[facility] [address] [place] [address] Lab Director: Jose Miguel Davis MDHematocrit (Bld) [Volume fraction]41.7 %Fcozul98.3-47.1MVA [facility] CenterComment on above:Performed By: #### CMPX, PT, CDP, MG ####[facility] [address] [place] [address] Lab Director: Jose Miguel Davis MDHemoglobin (Bld) [Mass/Vol]12.6 g/bIXnctsx71.9-15.1MVA [facility] CenterComment on above:Performed By: #### CMPX, PT, CDP, MG ####[facility] [address] [place] [address] Lab Director: BERTO GilbertCH (RBC) [Entitic mass]27.8 avJqfckt91.2-33.5Hol[facility] Health SystemComment on above:Performed By: #### CMPX, PT, CDP, MG ####[facility] [address]wosedfmsfs1205 [place], [place] [id number])[phone] Director: BERTO GilbertCHC (RBC) [Mass/Vol]30.2 g/rKRwiihc38.4-34.8[facility] Health SystemComment on above:Performed By: #### CMPX, PT, CDP, MG ####[facility] Culdumxnpoae[address] [place], [place] [phone])[phone] Director: BERTO GilbertCV (RBC) [Entitic vol]92.1 zBQgkugy11.6-102.9[facility] Health SystemComment on above:Performed By: #### CMPX, PT, CDP, MG ####[facility] Zhwajlfrelnr48[address] [place], [place] [id number])[phone] Director: Jose Miguel Davis MDNRBC Automated 0.2 per 100 WBCHigh0.0Hol[facility] Health SystemComment on above:Performed By: #### CMPX, PT, CDP, MG ####[facility] [address]ztuvgksrfdw[address] [place], [place] [phone])[phone] Director: BETITO Gilbertlatelet mean volume (Bld) [Entitic vol]10.3 fLNormal8.1-13.5[facility] Health SystemComment on above:Performed By: #### CMPX, PT, CDP, MG ####[facility] Nvekgnsmzlol34[address] [place], [place] [id number])[phone] Director: BETITO Gilbertlatelets (Bld) [#/Vol]167 10*3/wISixxrv355-593MwjrvSutter Medical Center, SacramentoComment on above: Performed By: #### CMPX, PT, CDP, MG ####[facility] Oehpzpgifzii[address] [place], [place] [id number])[phone] Director: Jose Miguel Davis MDRBC (Bld) [#/Vol]4.53 10*6/uLNormal3.95-5.11[facility] Health SystemComment on above:Performed By: #### CMPX, PT, CDP, MG ####[facility] Yyplpjwzdifq8[address] [place], [place] 44356419)[phone] Director: FAIZA Gilbert (d) [#/Vol]11.7 10*3/uLHigh3.5-11.3Mkettering health springfieldy Davies CampusComment on above: Performed By: #### CMPX, PT, CDP, MG ####[facility] Zxneevrcmxaz9848 [place], [place] 68496419)[phone] Director: LAURI Gilbertcache valley hospital Metabolic Pr/rfx MGon 83-76-4928Nmtfbbn [Mass/Vol]2.4 g/dLLow3.5-5.2Mkettering health springfieldy Davies CampusComment on above:Performed By: #### CMPX, PT, CDP, MG ####[facility] Iyczwovhprxb[address]4 [place], [place] [id number])[phone] Director: Jose Miguel Davis MDAlbumin/Glob Ratio0.7Low1.0-2.5Hol[facility] Health SystemComment on above:Performed By: #### CMPX, PT, CDP, MG ####[facility] Ivxshcuzyygt6[address] [place], [place] 66402419)[phone] Director: Jose Miguel aDvis MDAlkaline Phos61 U/VEnnvys53-486LiulaHolzer Health SystemComment on above:Performed By: #### CMPX, PT, CDP, MG ####[facility] Kgykwnpymmxb47[address] [place], [place] [phone])[phone] Director: Jose Miguel Davis MDALT [Catalytic activity/Vol]36 U/VRfiu79-67WvfjeHolzer Health SystemComment on above:Performed By: #### CMPX, PT, CDP, MG ####[facility] [address]zwheawuiwqe[address] [place], [place] [phone])[phone] Director: Kassi Gilbert gap [Moles/Vol]17 mmol/L High9-16[facility] Health SystemComment on above:Performed By: #### CMPX, PT, CDP, MG ####[facility] Trvfpqwvhocz0636 [place], [place] [phone])[phone] Director: Jose Miguel Davis MDAST [Catalytic activity/Vol]30 U/PQtrmts91-17QripuHolzer Health SystemComment on above:Result Comment: Specimen hemolysis has exceeded the interference as defined by Ranjith. Value may be falsely increased. Suggest recollection if clinically indicated.Performed By: #### CMPX, PT, CDP, MG ####[facility] Gqizrqwacbrc[address] [place], [place] [address])[phone] Director: Jose Miguel Davis MDBilirubin [Mass/Vol]1.4 mg/dL High0.0-1.2MVA [facility] CenterComment on above:Performed By: #### CMPX, PT, CDP, MG ####[facility] Jegcyzkwsgnt1238 [place], [place] [address])[phone] Director: Jose Miguel Davis MDCalcium [Mass/Vol]8.3 mg/dLLow 8.6-10.4[facility] Health SystemComment on above:Performed By: #### CMPX, PT, CDP, MG ####[facility] [address] [place], [place] [phone] Director: LAURI Gilberthloride [Moles/Vol]100 mmol/L Vlhmyp51-443CsablSutter Medical Center, SacramentoComment on above:Performed By: #### CMPX, PT, CDP, MG ####[facility] Rfkdjffvxqal26[address] [place], [place] [phone] Director: Jose Miguel Davis MDCO2 [Moles/Vol]21 mmol/LNormal 20-31[facility] Health SystemComment on above:Performed By: #### CMPX, PT, CDP, MG ####[facility] Hhcseqybrxny98[address] [place], [place] [address])[phone] Director: LAURI Gilbertreatinine [Mass/Vol]2.1 mg/dLHigh0.6-0.9 [facility] Health SystemComment on above:Performed By: #### CMPX, PT, CDP, MG ####[facility] [address] [place] [address] Lab Director: Jose Miguel Davis MDGFR/1.73 sq M.predicted among non-blacks MDRD (S/P/Bld) [Vol rate/Area]24 mL/min/{1.73_m2}Low>60Hol[facility] Health SystemComment on above:Result Comment: These results are not intended for [...] or following therapy that affects renal tubular secretion.Performed By: #### CMPX, PT, CDP, MG ####[facility], [facility] O[address]ag[address] [place] [address] Lab Director: Jose Miguel Davis MDGlucose [Mass/Vol]219 mg/yATvar08-55LfwroVA [facility] CenterComment on above:Performed By: #### CMPX, PT, CDP, MG ####[facility], [facility] [address] [place] [address] Lab Director: BETITO Gilbertotassium [Moles/Vol]3.1 mmol/LLow3.7-5.3MVA [facility] CenterComment on above:Result Comment: Specimen hemolysis has exceeded the interference as defined by Ranjith. Value may be falsely increased. Suggest recollection if clinically indicated.Performed By: #### CMPX, PT, CDP, MG ####[facility] [address]redn[address] [place] [address] Lab Director: BETITO Gilbertrotein [Mass/Vol]5.8 g/dLLow 6.6-8.7Holzer Health SystemComment on above:Performed By: #### CMPX, PT, CDP, MG ####[facility] [address]puwg[address] [place], [place] [address])[phone] Director: ABNER Gilbertodium [Moles/Vol]138 mmol/IGxnrka245-332 [facility] Health SystemComment on above:Performed By: #### CMPX, PT, CDP, MG ####[facility] Alwy[address] [place], [place] [address])[phone] Director: Jose Miguel Davis MDUrea nitrogen [Mass/Vol]63 mg/dLHigh8-23[facility] Health SystemComment on above:Performed By: #### CMPX, PT, CDP, MG ####[facility] Mamzx[address]xtf[address] [place], [place] [address])[phone] Director: LAURI Gilbertomp Metabolic Profon 03-37-0989Chvorxl [Mass/Vol]3.1 g/dLLow 3.5-5.2MVA [facility] CenterComment on above:Performed By: #### CP, CBC ####[facility] [address]hs[address] [place], [place] [address])[phone] Dir frankie: Jose Miguel Davis MDAlbumin/Glob Ratio1.0Bxwneb4.0-2.5Holzer Health SystemComment on above:Performed By: #### CP, CBC ####[facility] [address]gujdp[address]mej[address] [place], [place] [address])[phone] Director: Jose Miguel Davis MDAlkaline Phos63 U/BXajdxo21-996YfyjiHolzer Health SystemComment on above:Performed By: #### CP, CBC ####[facility] Uhsq[address]wuwknk49[address] [place], [place] [address])[phone] Director: Jose Miguel Davis MDALT [Catalytic activity/Vol]46 U/YRwfx24-52DxjexHolzer Health SystemComment on above: Performed By: #### CP, CBC ####[facility] Yfmwfybqvnwv[address] [place], [place] [phone])[phone] Director: Jose Miguel Davis MDAnishamar gap [Moles/Vol]20 mmol/L High9-16[facility] Health SystemComment on above:Performed By: #### CP, CBC ####[facility] [address] [place], [place] [phone])[phone] Dir frankie: Jose Miguel Davis MDAST [Catalytic activity/Vol]33 U/NGsglnv29-58GqkpiHolzer Health SystemComment on above:Performed By: #### CP, CBC ####[facility] [address]qfgprpucoy17[address] [place], [place] [phone])[phone] Director: Jose Miguel Davis MDBilirubin [Mass/Vol]1.6 mg/dLHigh0.0-1.2MVA [facility] CenterComment on above:Performed By: #### CP, CBC ####[facility] Arbzkvisatdr3416 [place], [place] [phone] Director: Jose Miguel Davis MDCalcium [Mass/Vol]8.4 mg/dLLow8.6-10.4Holzer Health SystemComment on above: Performed By: #### CP, CBC ####[facility] Rttfgxfynnku8[address] [place], [place] [phone])[phone] Director: Jose Miguel Davis MDChloride [Moles/Vol]97 mmol/L Luo11-720HfysaHolzer Health SystemComment on above:Performed By: #### CP, CBC ####[facility] [address]whdsqi[address] [place], [place] [phone])[phone] Dir frankie: Jose Miguel Davis MDCO2 [Moles/Vol]24 mmol/GPqoove78-49UnzrfHolzer Health SystemComment on above:Performed By: #### CP, CBC ####[facility] Ejhswzkzehbj[address] [place], [place] [phone])[phone] Director: LAURI Gilbertreatinine [Mass/Vol]2.2 mg/dLHigh0.6-0.9[facility] Health SystemComment on above:Performed By: #### CP, CBC ####[facility] [address] [place] [address] Lab Director: Jose Miguel Davis MDGFR/1.73 sq M.predicted among non-blacks MDRD (S/P/Bld) [Vol rate/Area]23 mL/min/{1.73_m2}Low>60MerSutter Medical Center, SacramentoComment on above:Result Comment: These results are not intended for [...] or following therapy that affects renal tubular secretion.Performed By: #### CP, CBC ####[facility] [address] [place] [address] Lab Director: Jose Miguel Davis MDGlucose [Mass/Vol]224 mg/zRQrhg30-78TvtlxVA [facility] CenterComment on above:Performed By: #### CP, CBC ####[facility] [address] [place] [address] Lab Director: BETITO Gilbertotassium [Moles/Vol]3.1 mmol/LLow3.7-5.3MVA [facility] CenterComment on above:Result Comment: Specimen hemolysis has exceeded the interference as defined by Ranjith. Value may be falsely increased. Suggest recollection if clinically indicated.Performed By: #### CP, CBC ####[facility] [address] [place] [phone] Director: Jose Miguel Davis MDProtein [Mass/Vol]5.6 g/dLLow6.6-8.7Holzer Health SystemComment on above:Performed By: #### CP, CBC ####[facility] [address]msseaa56[address] [place] [address] Lab Director: ABNER Gilbertodium [Moles/Vol]141 mmol/HOuoxlv159-805FoqpnHolzer Health SystemComment on above:Performed By: #### CP, CBC ####[facility] [address]nuwwrqsh[address] [place] [address] Lab Director: Jose Miguel Davis MDUrea nitrogen [Mass/Vol]60 mg/dLHigh8-23[facility] Health SystemComment on above:Performed By: #### CP, CBC ####[facility] [address]yredtizghwh34[address] [place] [address] Lab Director: LAURI Gilbertomprehensive Metabolic Panel on 54-77-5791Zuwmfry [Mass/Vol]3.1 g/dLLow3.5 - 5.2 g/dLBon [facility]Select [facility] Albumin/Globulin [Mass ratio]1.2 {ratio}1.0 - 2.5[facility] HealthALP [Catalytic activity/Vol]63 U/L35 - 104 U/LBon [facility] HealthALT [Catalytic activity/Vol]46 U/LHigh10 - 35 U/LBon [facility]ours [facility] HealthAnion gap [Moles/Vol] 20 mmol/LHigh9 - 16 mmol/LBon [facility] HealthAST [Catalytic activity/Vol]33 U/L10 - 35 U/LBon [facility] HealthBilirubin [Mass/Vol]1.6 mg/dLHigh0.0 - 1.2 mg/dLBon [facility] HealthCalcium [Mass/Vol]8.4 mg/dLLow8.6 - 10.4 mg/dLBon Secours [facility] HealthChloride [Moles/Vol]97 mmol/LLow98 - 107 mmol/LBon [facility] HealthCO2 [Moles/Vol]24 mmol/L20 - 31 mmol/LBon [facility] Health Creatinine [Mass/Vol]2.2 mg/dLHigh0.6 - 0.9 mg/dLBon Sec[facility] HealthEst, Glom Filt Bdkk94Ywf- PINFBon Secours [facility] HealthGlucose [Mass/Vol]224 mg/dLHigh 74 - 99 mg/dLBon [facility] CenterInterpretation and review of laboratory resultsAbnormalBon [facility] CenterPotassium [Moles/Vol]3.1 mmol/LLow3.7 - 5.3 mmol/LBon [facility] HealthProtein [Mass/Vol]5.6 g/dLLow6.6 - 8.7 g/dLBon [facility] HealthSodium [Moles/Vol]141 mmol/L136 - 145 mmol/LBon [facility] CenterUrea nitrogen [Mass/Vol]60 mg/dLHigh8 - 23 mg/dLBon [facility] CenterComprehensive Metabolic Panel w/ Reflex to MGon 29-61-5875Hjrolwf [Mass/Vol]2.4 g/dLLow3.5 - 5.2 g/dLBon [facility] Albumin/Globulin [Mass ratio]0.7 {ratio}Low1.0 - 2.5Bon [facility] CenterALP [Catalytic activity/Vol]61 U/L35 - 104 U/LBon [facility] CenterALT [Catalytic activity/Vol]36 U/LHigh10 - 35 U/LBon [facility] CenterAnion gap [Moles/Vol] 17 mmol/LHigh9 - 16 mmol/LBon [facility] CenterAST [Catalytic activity/Vol]30 U/L10 - 35 U/LBon [facility] CenterBilirubin [Mass/Vol]1.4 mg/dLHigh0.0 - 1.2 mg/dLBon [facility] CenterCalcium [Mass/Vol]8.3 mg/dLLow8.6 - 10.4 mg/dLBon [facility] CenterChloride [Moles/Vol]100 mmol/L98 - 107 mmol/LBon [facility] CenterCO2 [Moles/Vol]21 mmol/L20 - 31 mmol/LBon [facility] Creatinine [Mass/Vol]2.1 mg/dLHigh0.6 - 0.9 mg/dLBon [facility] CenterEst, Glom Filt Ktnc91Nak- PINFBon [facility] CenterGlucose [Mass/Vol]219 mg/dLHigh 74 - 99 mg/dLBon [facility] CenterInterpretation and review of laboratory resultsAbnormalCentra HealthPotassium [Moles/Vol]3.1 mmol/LLow3.7 - 5.3 mmol/LBon [facility] CenterProtein [Mass/Vol]5.8 g/dLLow6.6 - 8.7 g/dLBon [facility] CenterSodium [Moles/Vol]138 mmol/L136 - 145 mmol/LBon [facility] CenterUrea nitrogen [Mass/Vol]63 mg/dLHigh8 - 23 mg/dLBon [facility] CenterGlucose,Whole Bloodon 17-91-2493Uwmjzvm [Mass/Vol] 184 mg/cOWzmt73-911JfxhzHolzer Health SystemGlucose [Mass/Vol]183 mg/dL Usyl94-275NydasHolzer Health SystemLactic Acidon 17-44-5694Fbwrafmwqvegff and review of laboratory resultsAbnormCJW Medical CenterLactic Acid, Whole Blood2.3 mmol/LHigh0.7 - 2.1 mmol/LBon [facility] Surgery CenterLactic Acid,Whole Bl2.3 mmol/LHigh0.7-2.1Mer[facility] Davies CampusComment on above:Performed By: #### LACTIC ####[facility] [address] [place] [address] Lab Director: Jose Miguel Davis MDLipaseon 14-74-5958Nzzzhv [Catalytic activity/Vol]23 U/L13 - 60 U/LBon [facility] Surgery CenterLipase [Catalytic activity/Vol]23 U/IMuyutv98-19 [facility] SystemComment on above:Performed By: #### TROPI, LIP ####[employer] [address] [place] [address] LabDirector: BERTO GilbertR Abdomen WO contraston 11-48-3051HAJH RIS [facility] Madison CountyRadiology Study observation (narrative) Centra HealthMR Abdomen WO contrastOrdered By: Joby Hickey on 90-59-4699Jml [facility] [employer] Work Phone: MRI ABDOMEN WO CONTRAST MRCPon 03-87-5922QAE ABDOMEN WO CONTRAST MRCPEXAMINATION: MRI OF THE ABDOMEN WITHOUT CONTRAST AND [...] Visualized bowel is nondilated without wall thickening. Peritoneum/Retroperitoneum: No free air, organized fluid collection, lymphadenopathy. Bones/Soft Tissues: Mild degenerative disc disease. IMPRESSION: 1. Findings suspicious for perforated acute cholecystitis. 2. 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 Recommend follow-up pancreas protocol MRI in 2 years. Interpreted by: Joby Hickey MD Signed by: Joby Hickey MD 03/03/25 Final resultNormSalem Regional Medical CenterMRSA, DNA, Nasalon 03-03-2025 Specimen Description.NASAL SWABNormSalem Regional Medical CenterComment on above:Performed By: #### MRSANO ####[employer] [place] [address] Lab Director: Baljinder Gilbertgnesiumon 03-03-2025 Magnesium [Mass/Vol]2.2 mg/dL1.6 - 2.4 mg/dLBon [facility] CenterMagnesium [Mass/Vol]2.2 mg/dLNormal1.6-2.4Hol[facility] Health SystemComment on above:Performed By: #### CMPX, PT, CDP, MG ####[facility] [address] [place] [address] Lab Director: Jose Miguel Dvais MDNo Panel Informationon 94-18-9528ZkaWinchester Medical Center Glucose Fingerstickon 90-01-8691Pqihsqn [Mass/Vol]184 mg/aKDhga32 - 105 mg/dLBon [facility] CenterInterpretation and review of laboratory resultsAbnormalCentra Lynchburg General HospitalGlucose [Mass/Vol]183 mg/sWTfls61 - 105 mg/dLBCumberland HospitalInterpretation and review of laboratory results AbnormalLifePoint Health 46-56-1166ELN Coag (PPP) [Relative time]1.5 {INR}NormalHolzer Health SystemComment on above:Result Comment: Therapeutic Range: Moderate Anticoagulant Intensity: INR = 2.0-3.0 High Anticoagulant Intensity: INR = 2.5-3.5Performed By: #### CMPX, PT, CDP, MG ####[facility] [address] [place] [address] Lab Director: LOWELL Gilbert Coag (PPP) [Time]18.2 sHigh11.7-14.9Holzer Health SystemComment on above:Performed By: #### CMPX, PT, CDP, MG ####[facility] [address] [place], [place] [phone] Lab Director: Joel Gilbert XR Chest AP single viewon 94-15-6393YOKKHenry County Medical CenterRadiology Study observation (narrative) [facility] XR Chest AP single viewOrdered By: Orlando Carballo on 80-36-1428OykCumberland Hospital Work Phone: [phone]-GPRza 91-33-5530BFZ Coag (PPP) [Relative time] 1.5 {INR}[facility] Latasha Agrawal HealthInterpretation and review of laboratory results AbnormalAldair Agrawal HealthPT Coag (PPP) [Time]18.2 sHighBon Secrom [facility] Latasha [facility] HealthTYPE AND SCREENon 74-93-8174KUA and Rh group Nom (Bld)Blood group A Rh(D) positiveClinch Valley Medical Centerrom [facility], Inckim [facility] HospitalArm Band NumberBE [id number] [facility] Districtkim [facility] HospitalBlood Bank Sample Xkslypwrwo21/30/2025,2359Bon [facility] Districtkim [facility] HospitalBlood group antibodies identified NomNegativeA[facility] Latasha [facility] In[facility] HealthTroponinon 27-14-6551Dbzxwrbqpucdyw and review of laboratory results AbnormalAbrazo [facility] Campus Latasha [facility] Inckim [facility] City HospitalTroponin I.cardiac High sensitivity method [Mass/Vol]108 ng/LCritically high0 - 14 ng/LBon [facility] Hospitalrom [facility] Grant Medical CenterTroponin, High Xuez353 ng/LCritically high0-14Holzer Health SystemComment on above:Result Comment: High Sensitivity Troponin values cannot be compared with other Troponin methodologies.Performed By: #### TROPI, LIP ####[facility] [address] [place] [address] LabDirector: Jose Miguel Davis MDType + Screenon 83-90-6214Axxc + ScreenSample Expiration 03/06/2025,2359 Arm Band Number [place] [id number] ABO/Rh(D) A POSITIVE Antibody Screen NEGATIVENormalHolzer Health SystemComment on above: Performed By: #### TYS #### [facility] [address] [place], [place] [id number] Hand Suture Winder: Jose Miguel Davis MDUS ABDOMEN LIMITEDon 59-12-4823HF ABDOMEN LIMITEDEXAMINATION: RIGHT UPPER QUADRANT ULTRASOUND 03/03/2025 6:23 pm COMPARISON: Correlation concurrent MRCP HISTORY: Acute cholecystitis. FINDINGS: LIVER: Normal echogenicity without discrete lesion. No intrahepatic biliary ductal dilatation. BILIARY SYSTEM: Distended gallbladder contains sludge and stones. Mild gallbladder wall thickening with pericholecystic fluid. Negative sonographic Henlye's sign. The extrahepatic bile duct is within [...] Signed by: Columba Wyatt MD 03/03/[address] [facility] Abdomen limitedon 09-04-9262CQDQ RIS CONSOLIDATEDPN RIS CONSOLIDATEDBon [facility] Radiology Study observation (narrative)Bon [facility] Abdomen limitedOrdered By: Columba Wyatt on 26-21-9144Ghb [facility] Work Phone: Urinalysis w/ Microon 92-71-1486IxrudbvfTycnCwnazuEVFS [facility] Health SystemComment on above:Performed By: #### UAMIC ####[facility] [address] [place] [address] Lab Director: LAURI GilbertastsNoneNormal0-2MVA [facility] CenterComment on above:Performed By: #### UAMIC ####[facility] [address] [place] [address] Lab Director: Jose Miguel Davis MDEpithelial cells LM Ql (Urine sed)5 TO 34Xpsncg3-3XixqbHolzer Health SystemComment on above:Performed By: #### UAMIC ####[facility] [address] [place] [phone] Director: Jose Miguel Davis MDUrine RBC's5 TO 50Qgvtlz1-2XrrtcVA [facility] CenterComment on above:Performed By: #### UAMIC ####[facility] R[address]bzunythrh[address] [place] [address] Lab Director: Jose Miguel Davis MDUrine WBC's20 TO 00Cqsdpb0-1SxbccHolzer Health SystemComment on above:Performed By: #### UAMIC ####[facility] Fbghrdotecqg[address] [place], [place] [phone])[phone] Director: Jose Miguel Davis MDBilirubin, SemiQt,UrNegative NormalNEGHolzer Health SystemComment on above:Performed By: #### UAMIC ####[facility] [address] [place] [address] [phone])[phone] Director: Jose Miguel Davis MDBlood, UrineMODERATEAbnormalElyria Memorial HospitalComment on above:Performed By: #### UAMIC ####[address] [phone] Director: LAURI Gilbertlarity (U)CloudyAbnormalCLEARMercSan Luis Obispo General HospitalComment on above:Performed By: #### UAMIC ####[address] [phone] Director: LAURI Gilbertolor (U)YellowNormalYEL [facility] Health SystemComment on above:Performed By: #### UAMIC ####[facility] [address] [place] [address] 58585419)[phone] Director: Joes Miguel Davis MDGlucose Ql (U)NegativeNormalNEGHolzer Health SystemComment on above:Performed By: #### UAMIC ####[facility] R[address]junionpel[address] [place] [address] [phone] Director: Jose Miguel Davis MDKetones Ql (U)NegativeNormalNEGHolzer Health SystemComment on above: Performed By: #### UAMIC ####[facility] [address] [place] [address] [phone] Director: Jose Miguel Davis MDLeukocyte esterase Test strip Ql (U)MODERATEAbnormalNEGHolzer Health SystemComment on above: Performed By: #### UAMIC ####[facility] [address] [place], [place] [address])[phone] Director: Jose Miguel Davis MDNitrite,UrNegativeNormalNEG [facility] Health SystemComment on above:Performed By: #### UAMIC ####[facility] Vhvraaztcntw[address] [place], [place] [address])[phone] Director: BETITO GilbertH,Ur5.7Ndibbl7.0-8.0Hol[facility] Health SystemComment on above:Performed By: #### UAMIC ####[facility] [address]ilus[address] [place], [place] [address])[phone] Director: BETITO Gilbertrotein Ql (U)2+ mg/dL AbnormalNEGHolzer Health SystemComment on above:Performed By: #### UAMIC ####[place], [place] [address])[phone] Director: ABNER Gilbertpec. Dante,Ur1.649Cflzzn6.005-1.030[facility] Health SystemComment on above:Performed By: #### UAMIC ####[facility] [address]uhpzqymm[address] [place], [place] [address])[phone] Director: Jose Miguel Davis MDUrobilinogen,UrNormalNormal0.0-1.0[facility] Comment on above:Performed By: #### UAMIC ####[facility] [address]uv[address] [place] [address] Lab Director: Jose Miguel Davis MDUrinalysis with Microscopicon 91-55-9568Mokpmmlx LM Ql (Urine sed)NoneNoneBon [facility] HealthBilirubin Ql (U)NegativeNEGATIVEBon [facility] HealthCasts LM.LPF (Urine sed) [#/Area]NoneBon [facility] HealthClarity (U)CloudyAbnormalClear [facility] HealthColor (U)YellowYellowBon [facility] Medical CenterEpithelial cells LM.HPF (Urine sed) [#/Area]5 TO 10[facility] Medical CenterGlucose Test strip (U) [Mass/Vol]NegativeNEGATIVE mg/dLBon [facility]ours [facility] Grant Medical CenterHemoglobin Auto test strip Ql (U)MODERATEAbnormalNEGATIVEBon [facility] Interpretation and review of laboratory resultsAbnormalBon [facility] Ketones (U) [Mass/Vol]NegativeNEGATIVE mg/dLBon SecSelect [facility] Hospital - [facility] SouthLeukocyte esterase Test strip Ql (U)MODERATEAbnormalNEGATIVEBon [facility] Nitrite Ql (U)NegativeNEGATIVEBon SecSelect [facility] Special[facility] Hospital - Columbus SouthpH (U)5.5 [pH]5.0 - 8.0Bon [facility] CenterProtein (U) [Mass/Vol]2+AbnormalNEGATIVE mg/dLBon SecSelect Medical Specialty Hospital - [facility] SouthRBC LM.HPF (Urine sed) [#/Area]5 TO 10Bon [facility] Specific gravity (U) [Rel density]1.021.005 - 1.030Bon [facility] Urobilinogen Qn (U)Normal0.0 - 1.0 EU/dLBon [facility]ours [facility] Grant Medical CenterWBC LM.HPF (Urine sed) [#/Area]20 TO 50[facility] Urine Cultureon 66-97-4480Wvcgsnce identified Cx Nom (U)<9,000 colonies/ml mixed bacterial skin contaminants 2 Days PERFORMED BY: [place] [address] PATHOLOGIST PAPER HANGER SANJUANITA GHOTRA M.D.[facility] Park Physician GroupComment on above: Performed By: #### CUU #### [place] [address] USAXR CHEST PORTABLEon 85-40-1764NS CHEST PORTABLE EXAMINATION: ONE XRAY VIEW OF THE CHEST 03/03/2025 12:42 pm COMPARISON: None. HISTORY: ORDERING SYSTEM PROVIDED HISTORY: evalute lung window TECHNOLOGIST PROVIDED HISTORY: evalute lung window FINDINGS: Cardiomegaly. Pulmonary vascular congestion. Possible pulmonary edema. No focal consolidation. No pneumothorax. No pleural effusion. IMPRESSION: Findings suggest congestive heart failure Interpreted by: Orlando Carballo MD Signed by: Orlando Carballo MD 03/03/25 Final resultNormSalem Regional Medical Center36on 49-45-834867Iltherozs CXR result from 02/19/2025: Per Ashanti roman CNP- please let her know CXR showed extra fluid intravascularly. Continue plan with increased dose of lasix. Spoke with patient and made her aware. She verbalized understanding.Normal [facility]37on *Increase lasix to 80mg twice daily. *Limit fluid intake to 2000ml/day. Limit sodium intake, ideally less than 2000mg/day. *Continue monitoring daily weights. *Follow-up labs in 1 week.[facility]Office Visit on 98-86-4150Acyulk-up [id number] Tosha Mcneal Ilan 1950 F Date Provider Department Center 02/19/2025 ALFRED CARRINGTON Family History Problem Relation Age of Onset Coronary artery disease Father Heart attack Father Family Status - Relation Status Age at Mother Father Sister Alive Level of Service:16366 ME OFFICE/OUTPATIENT ESTABLISHED MOD MDM 30 MIN Reason for Visit and Comments: Edema [[id number]] Congestive Heart Failure [127][facility]Office Visiton 10-10-9184Emmred-up [id number] Nella Mcnealgordon Talavera 1950 Date Provider Department Center 01/17/2025 ALFRED CARRINGTON Family History Problem Relation Age of Onset Coronary artery disease Father Heart attack Father Family Status - Relation Status Age at Father Level of Service:20542 ME OFFICE/OUTPATIENT ESTABLISHED LOW MDM 20 MIN Reason for Visit and Comments: Congestive Heart Failure [127] Hypertension [386271][place] [address]on *Will increase lasix for the next week: - Take 2 tablets in the AM, 1 tablet in the early evening for 2 days then take 1 tablet twice daily for 5 days.[facility] Visiton 20-88-5981Vcpwik-up [id number] Tosha Mcneal 1950 F Date Provider Department Center 01/03/2025 ALFRED CARRINGTON [facility]ia [facility] Family History Problem Relation Age of Onset Coronary artery disease Father Heart attack Father Family Status - Relation Status Age at Father Level of Service:93444 ME OFFICE/OUTPATIENT ESTABLISHED MOD MDM 30 MIN Reason for Visit and Comments: Congestive Heart Failure [127]NormalUnACMC Healthcare SystemAlanine aminotransferase [Enzymatic activity/volume] in Serum or PlasmaOrdered By: Rose Ohara on 53-68-1022XXK [Catalytic activity/Vol]Alanine aminotransferase [Enzymatic activity/volume] in Serum or Plasma7-52[facility] HospitalAlbumin [Mass/volume] in Serum or Plasma by Bromocresol green (BCG) dye binding methoOrdered By: Rose Ohara on 29-59-2611Ntldgpw BCG dye [Mass/Vol] Albumin [Mass/volume] in Serum or Plasma by Bromocresol green (BCG) dye binding metho3.5-5.7FDetwiler Memorial HospitalAlkaline phosphatase [Enzymatic activity/volume] in Serum or PlasmaOrdered By: Rose Ohara on 90-76-7669RXF [Catalytic activity/Vol]Alkaline phosphatase [Enzymatic activity/volume] in Serum or Tydovj20-181QiyopoqwvMercy Health St. Elizabeth Boardman HospitalAspartate aminotransferase [Enzymatic activity/volume] in Serum or PlasmaOrdered By: Rose Ohara on 11-87-4232PJS [Catalytic activity/Vol]Aspartate aminotransferase [Enzymatic activity/volume] in Serum or GpjazvRey15-40JoskixquwMercy Health St. [facility] Hospital Basophils Auto (Bld) [#/Vol]Ordered By: Rose Ohara on 74-01-7832Giomgxjtz (Bld) [#/Vol]Automated basophil count0.0-0.2FDetwiler Memorial Hospital Basophils/100 WBC Auto (Bld)Ordered By: Rose Ohara on 70-75-2026Felayxvem/100 WBC (Bld)Automated basophil %.[facility] HospitalBilirubin.total [Mass/volume] in Serum or PlasmaOrdered By: Rose Ohara on 11-69-6004Ykdrvwwab [Mass/Vol]Bilirubin.total [Mass/volume] in Serum or PlasmaHigh0.3-1.0[facility] W Auto Differential panel (Bld)on 12-11-2024 Basophils/100 WBC Manual cnt (Syn fld)1.1 %.[facility] MedicineEosinophils/100 WBC Manual cnt (Syn fld)1.7 %.[facility] MedicineInterpretation and review of laboratory resultsAbnormalFreeman Orthopaedics & Sports MedicineLymphocytes/100 WBC Manual cnt (Syn fld)19.4 %. [facility] CenterHC (RBC) [Mass/Vol]33.1 g/dL32.0 - 35.0 g/dLFreeman Orthopaedics & Sports Medicine Monocytes+Macrophages/100 WBC Manual cnt (Syn fld)8.3 %.[facility] Neutrophils/100 WBC Manual cnt (Syn fld)69.5 %.[facility] Sports MedicineNRBC0.1 /100{WBC}0 - 0.5 /100{WBC}[facility] MonettC LM.HPF (Urine sed) [#/Area]4.95 10*6/uL3.60 - 5.00 10*6/uLNOMS HealthcareWBC LM.HPF (Urine sed) [#/Area]8.4 10*3/uL3.8 - 11.6 10*3/uLNOCedar County Memorial HospitalNONJ HealthcareCT abdomen pelvis w conon 79-48-5782OS abdomen pelvis [place] [address] CT Scan Report Signed Patient: Tosha Mcneal MR#: [id number] : 1950 Acct:[id number] Age/Sex: 73 / F ADM Date: 12/11/24 [facility]: [facility]: [facility]: Rose Ohara MD Copies to: Rose Ohara MD Ordering Provider: Rose Ohara MD Date of Service: 12/11/24 CT/CT abdomen pelvis w con: melanoma rt upper arm ([id number]) CT/CT chest w con: melanoma rt upper [...] Partially calcified fibroid uterus. No adnexal mass.] Peritoneum/Retroperitoneum:No free air or free fluid or lymphadenopathy.[ Abd wall/Bones:No acute findings. Osseous structures demonstrate degenerative change.[ CT/CT chest w con IMPRESSION: No CT evidence of progression disease seen within the chest, abdomen or pelvis. Right-sided hydronephrosis and hydroureter without obstructing stone or mass. Finding is nonspecific. Underlying UVJ stricture cannot BE excluded. Impression dictated by: Miki Kruse Jr., D.O.12/11/2024 2:37 PM Dictation Location: [place] [address] Transcribed By: [facility] 12/11/24 1437 Dictated By: Miki Kruse Jr, DO 12/11/24 1433 Signed By: 12/11/24 1437[facility] Physician GroupCalcium [Mass/volume] in Serum or PlasmaOrdered By: Rose Ohara on 72-33-1552Rzisnjz [Mass/Vol]Calcium [Mass/volume] in Serum or Plasma8.6-10.3FDetwiler Memorial HospitalCarbon dioxide, total [Moles/volume] in Serum or PlasmaOrdered By: Rose Ohara on 81-85-1163MM8 [Moles/Vol]Carbon dioxide, total [Moles/volume] in Serum or Plasma 21.0-31.0[facility] HospitalChloride [Moles/volume] in Serum or PlasmaOrdered By: Rose Ohara on 24-45-6648Milqnvtb [Moles/Vol]Chloride [Moles/volume] in Serum or Rtnswt08-258LlmevqldaMercy Health St. Elizabeth Boardman HospitalComplete Blood Count Auto Diffon 30-77-5727Mkyuqmhpa (Bld) [#/Vol]0.1 10*3/uLNormal 0.0-0.2NOMS HealthcareComment on above:Result Comment: PERFORMED BY: [place] [address] PATHOLOGIST PAPER HANGER SANJUANITA GHOTRA M.D.Performed By: #### CBC #### [place] [address] USAEosinophils (Bld) [#/Vol]0.1 10*3/uLNormal0.0-0.45NOMS HealthcareComment on above:Performed By: #### CBC #### [place] [address] USAErythrocyte distribution width (RBC) [Ratio]15.6 %High 11.9-15.3NOMS HealthcareComment on above:Performed By: #### CBC #### [place] [address] USAHematocrit (Bld) [Volume fraction]44.2 %Iopbci12.0-46.4 NOMS HealthcareComment on above:Performed By: #### CBC #### [place] [address] USAHemoglobin (Bld) [Mass/Vol]14.6 g/lAUkfgcp28.8-15.4NOMS HealthcareComment on above:Performed By: #### CBC #### [place] [address] USALymphocytes (Bld) [#/Vol]1.6 10*3/uLNormal1.00-4.8NOMS HealthcareComment on above:Performed By: #### CBC #### [place] [id number] USAMCH (RBC) [Entitic mass]29.6 luSxyvjr53.7-34.3NOMS HealthcareComment on above:Performed By: #### CBC #### [place] [address] USAMCV (RBC) [Entitic vol]89.3 yRKcyxci18-303AAVY Healthcare Comment on above:Performed By: #### CBC #### [place] [address] USAMonocytes (Bld) [#/Vol]0.7 10*3/uLNormal0.0-0.8NOMS HealthcareComment on above:Performed By: #### CBC #### [place] [address] USANeutrophils (Bld) [#/Vol]5.8 10*3/uLNormal1.8-7.7NOMS HealthcareComment on above:Performed By: #### CBC #### [place] [address] USAPlatelet mean volume (Bld) [Entitic vol]7.8 fLNormal 6.3-10.7NOMS HealthcareComment on above:Performed By: #### CBC #### [place] [address] USAPlatelets (Bld) [#/Vol]238 10*3/iGOrbmzy461-846OXNW HealthcareComment on above:Performed By: #### CBC #### [place] [address] USAWBC (Bld) [#/Vol]8.4 10*3/uLNormal3.8-11.6NOMS Healthcare Comment on above:Performed By: #### CBC #### [place] [address] USABasophils/100 WBC (Bld)1.1 %Normal.The [facility] Physician GroupComment on above:Performed By: #### CBC #### [place] [address] USAEosinophils/100 WBC (Bld)1.7 %Normal.The [facility] Physician GroupComment on above:Performed By: #### CBC #### [facility] [address] [place] [address] USALymphocytes/100 WBC (Bld)19.4 %Normal.The [facility] Physician GroupComment on above:Performed By: #### CBC #### [facility] [address] [place] [address] USAMean Corpuscular HGB Conc33.1 g/qZZkbiqa37.0-35.0The [facility] Physician GroupComment on above:Performed By: #### CBC #### [facility] [address] [place] [address] USAMonocytes/100 WBC (Bld)8.3 %Normal.The [facility] Physician GroupComment on above:Performed By: #### CBC #### [place] [address] USANeutrophils/100 WBC (Bld)69.5 %Normal.The [facility] Physician GroupComment on above:Performed By: #### CBC #### [facility] [address] [place] [address] USANRBC%0.1 /100{WBC}Normal0-0.5The [facility] Comment on above:Performed By: #### CBC #### [place] [address] USARBC (Bld) [#/Vol]4.95 10*6/uLNormal3.60-5.00The [facility] Physician GroupComment on above:Performed By: #### CBC #### [facility] [address] [place] [address] USAComprehensive Metabolic Panelon 94-37-2881Tavdblt [Mass/Vol]4.6 g/dLNormal3.5-5.7NOMS HealthcareComment on above:Performed By: #### LDH, CMP ####[facility] [address] [place] [address] USAAlbumin/Globulin [Mass ratio]1.6 {ratio}NormalNOMS HealthcareComment on above:Performed By: #### LDH, CMP ####[address] [address] USAALP [Catalytic activity/Vol]54 U/MQipamo25-938OWPO HealthcareComment on above:Performed By: #### LDH, CMP ####[address] [address] USAALT [Catalytic activity/Vol]13 U/LNormal7-52NOMS HealthcareComment on above:Performed By: #### LDH, CMP ####[address] [address] USAAnion gap [Moles/Vol]16.7 mmol/LHigh6.0-15.0NOMS HealthcareComment on above:Performed By: #### LDH, CMP ####[address] [address] USAAST [Catalytic activity/Vol]12 U/INqz59-06DCRD HealthcareComment on above:Performed By: #### LDH, CMP ####[address] [address] USABilirubin [Mass/Vol]1.2 mg/dLHigh0.3-1.0NOMS HealthcareComment on above:Performed By: #### LDH, CMP ####[address] [address] USACalcium [Mass/Vol]9.8 mg/dL Normal8.6-10.3NOMS HealthcareComment on above:Performed By: #### LDH, CMP ####[address] [address] USA Chloride [Moles/Vol]101 mmol/IKvtjlg77-480OZPW HealthcareComment on above: Performed By: #### LDH, CMP ####[address] [address] USACO2 [Moles/Vol]26.3 mmol/EIdtyqm82.0-31.0NOMS HealthcareComment on above:Performed By: #### LDH, CMP ####[place] [address] USACREATININE CLR CALC PHARMACY 53.08NormalNOMS HealthcareComment on above:Performed By: #### LDH, CMP ####[place] [address] [place] Globulin (S) [Mass/Vol]2.9 g/dLNormalNOMS HealthcareComment on above:Performed By: #### LDH, CMP ####[place] [address] USAGlucose [Mass/Vol]245 mg/hLLrrx37-708WULG HealthcareComment on above:Random Glucose Reference Range is dependent on time and content of last meal. Glucose of more than 200 mg/dL in a nonstressed, ambulatory subject supports the diagnosis of Diabetes Mellitus. ADA recommended reference range Result Comment: Random Glucose Reference Range is dependent on time and content of last meal. Glucose of more than 200 mg/dL in a nonstressed, ambulatory subject supports the diagnosis of Diabetes Mellitus. ADA recommended reference rangePerformed By: #### LDH, CMP ####[place] [address] USAProtein [Mass/Vol]7.5 g/dLNormal6.4-8.9NOMS HealthcareComment on above:Performed By: #### LDH, CMP ####[place] [address] USASodium [Moles/Vol]140 mmol/BRnriyy679-331BOHA HealthcareComment on above:Performed By: #### LDH, CMP ####[place] [address] USAUrea nitrogen [Mass/Vol]21 mg/dLNormal7-25NOMS HealthcareComment on above:Performed By: #### LDH, CMP ####[place] [address] USACreatinine [Mass/Vol]0.96 mg/dLNormal0.60-1.20The [facility] Physician GroupComment on above:Performed By: #### LDH, CMP ####[place] [id number] [facility] GFR/1.73 sq M.predicted MDRD (S/P/Bld) [Vol rate/Area]mL/min/{1.73_m2}NormalThe Formerly [facility] Physician GroupComment on above:Performed By: #### LDH, CMP ####[facility] [address] [place] [address] [facility] Potassium [Moles/Vol]4.0 mmol/LNormal3.5-5.1The Former[facility] Physician GroupComment on above:Performed By: #### LDH, CMP ####[facility] [address] [place] [id number] [facility] CENTERComprehensive metabolic panelon 12-11-2024 Creatinine (U) [Mass/Vol]0.96 mg/dL0.60 - 1.20 mg/dLNONJ HealthcareESTIMATED GFR mL/MinNONJ HealthcareInterpretation and review of laboratory resultsAbnormalNONJ HealthcarePotassium [Moles/Vol]4 mmol/L3.5 - 5.1 mmol/LNEllett Memorial Hospital Creatinine [Mass/volume] in Serum or PlasmaOrdered By: Rose Ohara on 12-11-2024 Creatinine [Mass/Vol]Creatinine [Mass/volume] in Serum or Plasma0.60-1.[address] [facility] HospitalEosinophils Auto (Bld) [#/Vol]Ordered By: Rose Ohara on 83-77-6212Oagjsqkxcld (Bld) [#/Vol]Automated eosinophil count0.0-0.[address] [facility] HospitalEosinophils/100 WBC Auto (Bld)Ordered By: Rose Ohara on 86-01-4573Ycsttjsiepv/100 WBC (Bld)Automated eosinophil %.[facility] HospitalErythrocyte distribution width Auto (RBC) [Ratio]Ordered By: Rose Ohara on 68-91-1278Ynzpnjwcrgu distribution width (RBC) [Ratio] Erythrocyte distribution width [Ratio] by Automated uroeyCiuo90.9-15.3FDetwiler Memorial HospitalGlobulin Calc (S) [Mass/Vol]Ordered By: Rose Ohara on 64-47-1092Xtscjsjs (S) [Mass/Vol]Serum globulin measurement by calculation (mass/volume)[facility] HospitalGlucose [Mass/volume] in Serum or PlasmaOrdered By: Rose Ohara on 55-08-7451Nzvtqob [Mass/Vol]Glucose [Mass/volume] in Serum or RprljgXcev77-003JfghbsxlhMercy Health St. Elizabeth Boardman HospitalComment on above: ADA recommended reference rangeRandom Glucose Reference Range is dependent on time and content of last meal. Glucose of more than 200 mg/dL in a nonstressed, ambulatory subject supports the diagnosisof Diabetes Mellitus.Hematocrit Auto (Bld) [Volume fraction]Ordered By: Rose Ohara on 73-71-0589Zfwjnaoyrm (Bld) [Volume fraction]Hematocrit [Volume Fraction] of Blood by Automated count 34.0-46.4FDetwiler Memorial HospitalHemoglobin [Mass/volume] in Blood Ordered By: Rose Ohara on 98-22-2028Knzqnwzgfj (Bld) [Mass/Vol]Hemoglobin [Mass/volume] in Blood11.8-15.4FDetwiler Memorial HospitalLDH Lactate Dehydrogenaseon 35-94-5154TQA LACTATE OOELOZNOFMWJX793 U/RUycewz229-747KIIU HealthcareComment on above:Result Comment: PERFORMED BY: [facility] [address] [facility] [place] [address] PATHOLOGIST PAPER HANGER SANJUANITA GHOTRA M.D.Performed By: #### LDH, CMP ####[facility] [place] [address] USALactate dehydrogenase [Enzymatic activity/volume] in Serum or Plasma by Lactate to pyOrdered By: Rose Ohara on 41-51-9125BBT Lactate to pyruvate reaction [Catalytic activity/Vol] Lactate dehydrogenase [Enzymatic activity/volume] in Serum or Plasma by Lactate to wj819-846BobubtjpzMercy Health St. Elizabeth Boardman HospitalLeukocytes [#/volume] corrected for nucleated erythrocytes in Blood by Automated counOrdered By: Rose Ohara on 21-03-2279FOY corrected for nucl RBC Auto (Bld) [#/Vol]Leukocytes [#/volume] corrected for nucleated erythrocytes in Blood by Automated coun3.8-11.6FDetwiler Memorial HospitalLymphocytes Auto (Bld) [#/Vol]Ordered By: Rose Ohara on 72-82-8520Ymklahmwwdv (Bld) [#/Vol]Lymphocytes [#/volume] in Blood by Automated count1.00-4.8[facility] HospitalLymphocytes/100 WBC Auto (Bld) Ordered By: oRse Ohara on 45-04-6658Lbeigaycwpa/100 WBC (Bld)Lymphocytes/100 leukocytes in Blood by Automated count.[facility] HospitalMCH Auto (RBC) [Entitic mass]Ordered By: Rose Ohara on 61-24-1601VEO (RBC) [Entitic mass] MCH [Entitic mass] by Automated count24.7-34.3FDetwiler Memorial Hospital MCHC Auto (RBC) [Mass/Vol]Ordered By: Rose Ohara on 58-38-0029CBCQ (RBC) [Mass/Vol]MCHC [Mass/volume] by Automated count32.0-35.0[facility] HospitalMCV Auto (RBC) [Entitic vol]Ordered By: Rose Ohara on 25-34-6310KRG (RBC) [Entitic vol]MCV [Entitic volume] by Automated zazxa94-637SlpjquvceMercy Health St. Elizabeth Boardman HospitalMonocytes Auto (Bld) [#/Vol]Ordered By: Rose Ohara on 56-21-8208Odtgaslzw (Bld) [#/Vol]Automated blood monocyte count0.0-0.8[facility] HospitalMonocytes/100 WBC Auto (Bld)Ordered By: Rose Ohara on 00-82-4616Valugwnvp/100 WBC (Bld)Automated monocyte %.[facility] HospitalNeutrophils Auto (Bld) [#/Vol]Ordered By: Rose Ohara on 12-11-2024 Neutrophils (Bld) [#/Vol]Neutrophils [#/volume] in Blood by Automated count 1.8-7.7FDetwiler Memorial HospitalNeutrophils/100 WBC Auto (Bld)Ordered By: Rose Ohara on 84-96-9350Fbjtgrdjkkp/100 WBC (Bld)Automated neutrophil %. [facility] HospitalNo Panel Informationon 54-08-1735GHER HealthcareNo Panel InformationOrdered By: Rose Ohara on 51-78-4070Jvxkocthi GFR (CKD-EPI)> 60.0 mL/MinMercy Health St. Elizabeth Boardman HospitalPharmacy Creatinine Clearance (Chem53.08[facility] HospitalNucleated erythrocytes [Presence] in Blood by Automated countOrdered By: Rose Ohara on 12-11-2024 Nucleated RBC Auto Ql (Bld)Nucleated erythrocytes [Presence] in Blood by Automated count0-0.5FDetwiler Memorial HospitalPlatelet mean volume Auto (Bld) [Entitic vol]Ordered By: Rose Ohara on 66-03-7744Ifhvwlaz mean volume (Bld) [Entitic vol]Platelet mean volume [Entitic volume] in Blood by Automated count 6.3-10.7FDetwiler Memorial HospitalPlatelets Auto (Bld) [#/Vol]Ordered By: Rose Ohara on 99-39-7469Pqzqdllnp (Bld) [#/Vol]Platelets [#/volume] in Blood by Automated bmoaa709-115LiknmjjfhMercy Health St. Elizabeth Boardman HospitalPotassium [Moles/volume] in Serum or PlasmaOrdered By: Rose Ohara on 15-40-3242Ipvhvocfn [Moles/Vol] Potassium [Moles/volume] in Serum or Plasma3.5-5.1FDetwiler Memorial HospitalProtein [Mass/volume] in Serum or PlasmaOrdered By: Rose Ohara on 75-07-8238Fuptkbj [Mass/Vol]Protein [Mass/volume] in Serum or Plasma6.4-8.[address] [facility] HospitalRBC Auto (Bld) [#/Vol]Ordered By: Rose Ohara on 41-27-5402KYB (Bld) [#/Vol]Erythrocytes [#/volume] in Blood by Automated count 3.60-5.00WVUMedicine Barnesville Hospitalerum or plasma albumin/globulin mass ratioOrdered By: Rose Ohara on 25-92-9036Njyiwpl/Globulin [Mass ratio]Serum or plasma albumin/globulin mass ratioWVUMedicine Barnesville Hospitalerum or plasma anion gap determinationOrdered By: Rose Ohara on 60-23-5386Vioew gap [Moles/Vol]Serum or plasma anion gap determinationHigh6.0-15.0WVUMedicine Barnesville Hospitalodium [Moles/volume] in Serum or PlasmaOrdered By: Rose Ohara on 69-05-9938Kmkbyi [Moles/Vol]Sodium [Moles/volume] in Serum or Dwkgui106-[address] [facility] HospitalUrea nitrogen [Mass/volume] in Serum or Plasma Ordered By: Rose Ohara on 97-64-4644Ejkw nitrogen [Mass/Vol]Urea nitrogen [Mass/volume] in Serum or Plasma7Mer[facility] HospitalWBC Auto (Bld) [#/Vol]Ordered By: Rose Ohara on 03-62-6384CIG (Bld) [#/Vol]Leukocytes [#/volume] in Blood by Automated count3.8-11.6FDetwiler Memorial Hospital HGB A1C (GLYCO-HGB)on 35-52-9229Hbsvouy [Mass/Vol]197 mg/dLNormalProMercy Health St. Rita'S Medical CenterComment on above:Performed By: #### 3016-3, FELIX1C #### [facility] ([id number]) [address], [address] [address]NpU5p (Bld) [Mass fraction]8.5 %High4.4-5.6ProMercy Health St. Rita'S Medical CenterComment on above:Result Comment: NOTE ADA Guidelines Result HgbA1c Normal : less than 5.7 % Prediabetes : 5.7 % to 6.4 % Diabetes : > 6.4 % Use with caution in patients with abnormal hemoglobin variants as the half-life of red blood cells and in vivo glycation rates are affected.Performed By: #### 3016-3, FELIX1C #### [facility] ([id number]) [address], [address] [address]VSBNHPEKYYSR - ALBUMIN:CREATININE URINE RATIOon 07-16-2024 ALB/CREAT RATIONOT CALCULATEDNormal0.0-30.0ProMercy Health St. Rita'S Medical CenterComment on above:Result Comment: Result for Albumin/Creatinine Ratio cannot be reliably calculated because urine albumin and or urine creatinine is below the detection limit of the assay.Performed By: #### CMP, 80583-5, 35397-5, 2777-1, 3084-1, 2731-8, 54793-8 #### [facility] ([id number]) [address], [address] [place], [place] [address]Nqmzcwa DL <= 20 mg/L (U) [Mass/Vol]mg/dLNormal0.0-1.9ProMercy Health St. Rita'S Medical CenterComment on above:Performed By: #### CMP, 66709-0, 09481-7, 2777- 1, 3084-1, 2731-8, 40609-8 #### [facility] ([id number]) [address] [facility], [facility] [address] [place], [place] [address]IGRUU CREAT74.02 mg/dLNormalProMercy Health St. Rita'S Medical CenterComment on above:Performed By: #### CMP, 88499-4, 21469-8, 2777-1, 3084-1, 2731-8, 50828-7 #### [facility] ([id number]) [address] [facility], [address] [address]WDE Qnon 91-03-0778KLR5.00 uIU/mLNormal0.49-4.67ProMercy Health St. Rita'S Medical CenterComment on above:Performed By: #### 3016-3, HA1C #### [facility] ([id number]) [address] [place] [address], [facility] [address] [place], [place] [address]IGJB SCREENING BILATERAL W CADon 17-78-5952QJYL SCREENING BILATERAL W CADMAMM SCREENING BILATERAL W CAD EXAM: MAMM SCREENING [...] on 06/07/2024 1:35 PM 1 a FU ACRNormalProMedica Sierra Vista HospitalCOMPREHENSIVE METABOLIC PANELon 01-11-2024 Albumin [Mass/Vol]4.2 g/dLNormal3.2-5.3ProMedica [facility] HospitalComment on above:Performed By: #### MEMO, 73104-5, 83328-4, 2777-1, 3084-1, 2731-8, 65021-7 #### [facility] ([id number]) [address], [address] [place], [place] [address]QNA [Catalytic activity/Vol]74 U/PZtegdt90-672FsvHjnvnt Power HospitalComment on above:Performed By: #### MEMO, 69862-6, 14424-9, 7-1, 3084- 1, 2731-8, 01699-6 #### [facility] ([id number]) [address], [address] [place], [place] [address]LMG [Catalytic activity/Vol]16 U/LNormal0-31ProMedinfirmary ltac hospital Power HospitalComment on above:Performed By: #### MEMO, 02278-2, 78007-4, 7-1, 3084- 1, 2731-8, 41870-1 #### [facility] ([id number]) [address], [address] [place], [place] [address]Paczy gap [Moles/Vol]11 mmol/LNormal5-15ProMedica [facility] HospitalComment on above:Performed By: #### MEMO, 45916-1, 04138-6, 2777-1, 3084- 1, 2731-8, 55043-4 #### [facility] ([id number]) [address], [address] [place], [place] [address]SGE [Catalytic activity/Vol]13 U/LNormal0-41ProMedica [facility] HospitalComment on above:Performed By: #### MEMO, 58739-0, 60770-7, 2777-1, 3084- 1, 2731-8, 22813-5 #### [facility] ([id number]) [address], [address] [place], [place] [address]Lsknsektw [Mass/Vol]0.9 mg/dLNormal0.3-1.2ProMedica [facility] HospitalComment on above:Performed By: #### MEMO, 03340-1, 75090-1, 2777-1, 3084- 1, 2731-8, 60067-3 #### [facility] ([id number]) [address], [address] [place], [place] [address]Ubykdva [Mass/Vol]9.7 mg/dLNormal8.5-10.5ProMedSycamore Medical Center HospitalComment on above:Performed By: #### MEMO, 00545-4, 91852-9, 7-1, 3084- 1, 2731-8, 45988-9 #### [facility] ([id number]) [address], [address] [place], [place] [address]Qdgshfop [Moles/Vol]106 mmol/OTwgcnk72-526DluOhscsv [facility] HospitalComment on above:Performed By: #### MEMO, 92866-7, 71963-2, 2777-1, 3084- 1, 2731-8, 62755-5 #### [facility] ([id number]) [address], [address] [place], [place] [address]VW6 [Moles/Vol]24 mmol/AFockma68-18OxbFjdsbz [facility] Comment on above:Performed By: #### CMP, 30465-4, 83363-0, 2777-1, 3084-1, 2731- 8, 02458-1 #### [facility] ([id number]) [address], [address] [place], [place] [address]Xkpvsquvpu [Mass/Vol]0.84 mg/dLNormal0.40-1.00ProMedica [facility] HospitalComment on above:Result Comment: METHOD TRACEABLE TO IDMS STANDARD Performed By: #### MEMO, 13988-5, 80860-1, 2777-1, 3084-1, 2731-8, 23172-3 #### [facility] ([id number]) [address], [facility] [address] [place], [place] [address]YOA/1.73 sq M.predicted among non-blacks MDRD (S/P/Bld) [Vol rate/Area]73 mL/min/{1.73_m2}Normal>59ProMercy Health St. Rita'S Medical CenterComment on above: Result Comment: Reported eGFR is based on the CKD-EPI 2020 equation that does not use a race coefficient.Performed By: #### MEMO, 81877-3, 80343-0, 7-1, 3084-1, 2731-8, 71266-9 #### [facility] ([id number]) [address], [facility] [address] [place], [place] [address]Jvcablc [Mass/Vol]132 mg/dZHhtc69-70XdpIsrdyiSt. Rita's Hospital Comment on above:Performed By: #### MEMO, 11322-0, 71974-0, 7-1, 3084-1, 2731- 8, 92999-8 #### [facility] ([id number]) [address], [facility] [address] [place], [place] [address]Ngkshjvta [Moles/Vol]4.9 mmol/LNormal3.5-5.0ProMercy Health St. Rita'S Medical CenterComment on above:Performed By: #### MEMO, 78856-9, 89919-1, 7-1, 3084- 1, 2731-8, 00777-2 #### [facility] ([id number]) [address], [facility] [address] [place], [place] [address]Ifzccmw [Mass/Vol]6.9 g/dLNormal6.0-8.0[facility] Comment on above:Performed By: #### MEMO, 38613-8, 40223-6, 2777-1, 3084-1, 2731- 8, 76977-3 #### [facility] ([id number]) [address], [address] [place], [place] [address]Dowten [Moles/Vol]141 mmol/VHvvujv989-272BbjHatybb Toledo HospitalComment on above:Performed By: #### MEMO, 96205-2, 05326-8, 2777-1, 3084- 1, 2731-8, 36104-5 #### [facility] ([id number]) [address], [address] [place], [place] [address]Udxw nitrogen [Mass/Vol]21 mg/dLNormal5-27ProMercy Health St. Rita'S Medical CenterComment on above:Performed By: #### MEMO, 08691-6, 58346-1, 2777-1, 3084- 1, 2731-8, 38363-9 #### [facility] ([id number]) [address], [address] [place], [place] [address]Dawehzbdqpygb metabolic panelon 97-27-4353Mipvjkp [Mass/Vol]4.2 g/dL3.2 - 5.3 g/dLProMedica Health SystemALP [Catalytic activity/Vol]74 U/L39 - 130 U/LProMedica Health SystemALT No additional P-5'-P [Catalytic activity/Vol] 16 U/L0 - 31 U/LProMedica Health SystemAnion gap [Moles/Vol]11 mmol/L5 - 15 mmol/LProMedica Health SystemAST [Catalytic activity/Vol]13 U/L0 - 41 U/L [facility] Health SystemBilirubin [Mass/Vol]0.9 mg/dL0.3 - 1.2 mg/dLProMedica Health SystemCalcium [Mass/Vol]9.7 mg/dL8.5 - 10.5 mg/dLProMedica Health System Chloride [Moles/Vol]106 mmol/L98 - 109 mmol/LProMedica Health SystemCO2 [Moles/Vol]24 mmol/L22 - 32 mmol/LProMedica Health SystemCreatinine [Mass/Vol] 0.84 mg/dL0.40 - 1.00 mg/dLUniversity Hospitals Lake [facility] Health SystemComment on above:METHOD TRACEABLE TO IDMS STANDARDeGFR (CKD-EPI)non-race zykficuhv24- Augusta HealthComment on above: Reported eGFR is based on the CKD-EPI 2020 equation that does not use a race coefficient. Glucose [Mass/Vol]132 mg/dLNftq02 - 99 mg/dLProMercy Health Lorain HospitalPotassium [Moles/Vol]4.9 mmol/L3.5 - 5.0 mmol/[facility] Health SystemProtein [Mass/Vol] 6.9 g/dL6.0 - 8.0 g/dLProMercy Health Lorain Hospitalodium [Moles/Vol]141 mmol/L134 - 146 mmol/[facility] SystemUrea nitrogen [Mass/Vol]21 mg/dL5 - 27 mg/dL [facility] HospitalHGB A1C (GLYCO-HGB)on 93-22-3399Zmjopny [Mass/Vol]171 mg/dLNormalSt. Rita's HospitalComment on above:Performed By: #### MEMO, 43758-7, 86349-3, 2777-1, 3084-1, 2731-8, 61211-7 #### [facility] ([id number]) [address] [place] [address], [address] [place], [place] [address]JyZ0p (Bld) [Mass fraction]7.6 %High4.4-5.6ProMercy Health St. Rita'S Medical CenterComment on above:Result Comment: NOTE ADA Guidelines Result HgbA1c Normal : less than 5.7 % Prediabetes : 5.7 % to 6.4 % Diabetes : > 6.4 % Use with caution in patients with abnormal hemoglobin variants as the half-life of red blood cells and in vivo glycation rates are affected.Performed By: #### MEMO, 12345-2, 98662-3, 2777-1, 3084-1, 2731-8, 30149-9 #### [facility] ([id number]) [address] [place] [address], [address] [place], [place] [address]Epznrkypch A1con 27-31-8759Uaknqak glucose Estimated from glycated hemoglobin (Bld) [Mass/Vol]171 mg/dLMercy Health Kings Mills HospitalHbA1c (Bld) [Mass fraction]7.6 %High4.4 - 5.6 %[facility] HospitalComment on above:NOTE ADA Guidelines Result HgbA1c Normal : less than 5.7 % Prediabetes : 5.7 % to 6.4 % Diabetes : > 6.4 % Use with caution in patients with abnormal hemoglobin variants as the half-life of red blood cells and in vivo glycation rates are affected. Interpretation and review of laboratory resultsAbnormalEdgewood Surgical HospitalLipid 1996 panelon 99-51-1052Lhjipmgjpqq [Mass/Vol]104 mg/bTRpt344 - 200 mg/dLMercy Health Kings Mills HospitalCholesterol in HDL [Mass/Vol]46 mg/dL39 - PINF mg/dLMercy Health Kings Mills HospitalComment on above: HDL <40 mg/dL - High Risk HDL > or = 40mg/dL- Desirable HDL >60 mg/dL - Negative Risk Cholesterol in LDL [Mass/Vol]19 mg/dLNINF - 130 mg/dLMercy Health Kings Mills Hospital Comment on above: LDL <100 mg/dL - Desirable LDL >160 mg/dL - High Risk Cholesterol in VLDL [Mass/Vol]39 mg/dLHigh0 - 30 mg/dLMercy Health Kings Mills Hospital Cholesterol.total/Cholesterol in HDL [Mass ratio]2.3 {ratio}1.0 - 5.0Mer[facility] Mills HospitalTriglyceride [Mass/Vol]194 mg/uEQbsi13 - 150 mg/dLMercy Health Kings Mills HospitalCholesterol [Mass/Vol]104 mg/dADqd311-939CdbYtgpttSt. Rita's HospitalComment on above:Performed By: #### [facility], 46033-4, 96226-0, 2777-1, 3084-1, 2731-8, 61065-1 #### [facility] ([id number]) [address], [address] [place], [place] [address]Pxoljbozepm in HDL [Mass/Vol]46 mg/dLNormal>39ProMedica Columbus HospitalComment on above:Result Comment: HDL <40 mg/dL - High Risk HDL > or = 40mg/dL- Desirable HDL >60 mg/dL - Negative Risk Performed By: ###Jeremy HAMPTON, 93288-6, , 2776-, 3084-1, 2731-8, 90071-6 #### [facility] ([id number]) [address], [address] [place], [place] [address]Zxhtaiputcr in LDL [Mass/Vol]19 mg/dLNormal<130ProMedica Columbus HospitalComment on above:Result Comment: LDL <100 mg/dL - Desirable LDL >160 mg/dL - High Risk Performed By: ###Jeremy HAMPTON, 79065-0, 31997-5, 2776-, 3084-1, 2731-8, 54978-5 #### [facility] ([id number]) [address], [address] [place], [place] [address]Wkxmueosrzy in VLDL [Mass/Vol]39 mg/dLHigh0-30ProMedica Columbus HospitalComment on above:Performed By: ###Jeremy HAMPTON, 94417-9, 21440-4, 2776-1, 3084- 1, 2731-8, 20413-8 #### [facility] ([id number]) [address], [address] [place], [place] [address]IRSVZJGQSDH:HDL2.7Cribff8.0-5.0ProSelect Medical Cleveland Clinic Rehabilitation Hospital, Edwin Shaw HospitalComment on above:Performed By: #### MEMO, 13329-8, 85217-9, 2777-1, 3084-1, 2731-8, 24252-2 #### [facility] ([id number]) [address], [address] [place], [place] [address]Dmiaierngvib [Mass/Vol]194 mg/oLUqsd16-937KruRrsxtd Toledo HospitalComment on above:Performed By: #### MEMO, 84785-7, 96326-3, 7-1, 3084- 1, 2731-8, 19559-9 #### [facility] ([id number]) [address], [address] [place], [place] [address]MZVRKWYJRjr 38-16-6842Ahdapslws [Mass/Vol]1.7 mg/dLLow1.8-2.6 ProMRiverview Health Institute HospitalComment on above:Performed By: #### MEMO, 99759-5, 73223-1, 7-1, 3084-1, 2731-8, 67777-4 #### [facility] ([id number]) [address], [address] [place], [place] [address]Ubopyazitsc 26-15-8686Grcctzali [Mass/Vol]1.7 mg/dLLow1.8 - 2.6 mg/dLMercy Health Kings Mills HospitalNo Panel Informationon 95-16-3395Slqofenpowaztk and review of laboratory resultsAbnormalProMercy Health Lorain HospitalProMercy Health Lorain HospitalPHOSPHORUSon 27-28-3676Eufiwizow [Mass/Vol]3.7 mg/dLNormal2.4-4.9ProMercy Health St. [facility]'S Medical CenterComment on above:Performed By: #### MEMO, 45276-1, 73438-1, 2777- 1, 3084-1, 2731-8, 92817-8 #### [facility] ([id number]) [address] [facility], [address] [place], [place] [address]Qcpvjduvtc.intact [Mass/Vol]on 22-46-7180WhsGqweemUniversity Hospitals Cleveland Medical Center PTH FZGYFK34 pg/bNMsiukx46-54IitBxacieSt. Rita's HospitalComment on above:Performed By: #### [facility], 45268-4, 83731-6, 2777-1, 3084-1, 2731-8, 91940-7 #### [facility] ([id number]) [address] [place] [address], [address] [place], [place] [address]Xhwioeqtbuj Hormone, intacton 88-58-3749Jbbltafzlb.intact [Mass/Vol]61 pg/mL12 - 88 pg/mLMercy Health Kings Mills HospitalPhosphoruson 01-11-2024 Phosphate [Mass/Vol]3.7 mg/dL2.4 - 4.9 mg/dLMercy Health Kings Mills HospitalURIC ACIDon 45-37-5438Ufjfk [Mass/Vol]6.6 mg/dLNormal2.6-7.2PPeoples HospitalComment on above:Performed By: #### [facility], 66838-0, 02053-0, 2777-1, 3084-1, 2731-8, 22037-2 #### [facility] ([id number]) [address] [place] [address], [address] [place], [place] [address]Ybhe acidon 20-93-5202Brufl [Mass/Vol]6.6 mg/dL2.6 - 7.2 mg/dL [facility] SystemVitamin D 25 hydroxyon 95-13-9024Tebgftf D+Metabolites [Mass/Vol]11.1 ng/mLLow30 - 100 ng/mLMercy Health Kings Mills HospitalComment on above: Vitamin D status 25 [place] Vitamin D Deficiency <20 ng/mL Insufficiency 20-29 ng/mL Sufficiency 30-100 ng/mL Toxicity >100 ng/mL NOTE: A pediatric reference range has not been established by the death clearance coordinator of this kit. The [place] [employer] recommends a Vitamin D level of = or >20ng/mL in infants and children. Vitamin D+Metabolites [Mass/Vol]on 92-44-9129Rdfagxdtvcskyq and review of laboratory resultsAbnormalProGeorgetown Behavioral Hospital SystemProMercy Health Lorain HospitalVITAMIN D 25 HYD TOT11.1 ng/fDErb63-629OodPxxyaiSt. Rita's HospitalComment on above:Result Comment: Vitamin D status 25 [place] Vitamin D Deficiency <20 ng/mL Insufficiency 20-29 ng/mL Sufficiency 30-100 ng/mL Toxicity >100 ng/mL NOTE: A pediatric reference range has not been established by the death clearance coordinator of this kit. The [place] [employer] recommends a Vitamin D level of = or >20ng/mL in infants and children.Performed By: #### CMP, 89039-4, 98048-7, 2777-1, 3084-1, 2731-8, 67381-8 #### [facility] ([id number]) [address] [place] [address], [address] [place], [place] [address]Sjcopzn aminotransferase [Enzymatic activity/volume] in Serum or PlasmaOrdered By: Farhana Sotomayor on 12-69-3409ASG [Catalytic activity/Vol] 12 U/L7-52[facility] HospitalAlbumin [Mass/volume] in Serum or Plasma by Bromocresol green (BCG) dye binding methoOrdered By: Farhana Sotomayor on 86-95-5094Qodkafg BCG dye [Mass/Vol]4.0 g/dL3.5-5.7FDetwiler Memorial HospitalAlkaline phosphatase [Enzymatic activity/volume] in Serum or PlasmaOrdered By: Farhana Sotomayor on 68-44-5953UZM [Catalytic activity/Vol]55 U/D46-427CfcqbxveaMercy Health St. Elizabeth Boardman HospitalAspartate aminotransferase [Enzymatic activity/volume] in Serum or PlasmaOrdered By: Farhana Sotomayor on 61-99-3528ELR [Catalytic activity/Vol]11 U/L13-[address] [facility] HospitalBasophils Auto (Bld) [#/Vol]Ordered By: Farhana Sotomayor on 94-07-8607Vgovkrdfg (Bld) [#/Vol]0.1 10*3/uL0.0-0.2FDetwiler Memorial HospitalBasophils/100 WBC Auto (Bld)Ordered By: Farhana Sotomayor on 59-04-3865Tkbggthbt/100 WBC (Bld)1.2 %.[facility] [address] [facility] HospitalBilirubin.total [Mass/volume] in Serum or PlasmaOrdered By: Farhana Sotomayor on 29-12-5933Kqfsoqoff [Mass/Vol]0.8 mg/dL0.3-1.0[facility] HospitalCalcium [Mass/volume] in Serum or PlasmaOrdered By: Farhana Sotomayor on 26-28-8760Mdeyaxx [Mass/Vol]9.3 mg/dL8.6-10.3FDetwiler Memorial HospitalCarbon dioxide, total [Moles/volume] in Serum or PlasmaOrdered By: Farhana Sotomayor on 46-19-7325HK3 [Moles/Vol]26.9 mmol/L21.0-31.0[facility] HospitalChloride [Moles/volume] in Serum or PlasmaOrdered By: Farhana Sotomayor on 21-68-1920Aiinczhf [Moles/Vol]103 mmol/I14-621DsfpvqmxtMercy Health St. Elizabeth Boardman HospitalCreatinine [Mass/volume] in Serum or PlasmaOrdered By: Farhana Sotomayor on 86-37-9100Eufbbotphu [Mass/Vol]1.05 mg/dL0.60-1.[address] [facility] HospitalEosinophils Auto (Bld) [#/Vol]Ordered By: Farhana Sotomayor on 19-19-4172Rjepozjzakf (Bld) [#/Vol]0.2 10*3/uL0.0-0.[address] [facility] HospitalEosinophils/100 WBC Auto (Bld)Ordered By: Farhana Sotomayor on 60-94-8354Uatbmbgkmiu/100 WBC (Bld)2.4 %.[facility] [facility] HospitalErythrocyte distribution width Auto (RBC) [Ratio]Ordered By: Farhana Sotomayor on 96-65-4368Ffosgixsiao distribution width (RBC) [Ratio]16.0 %11.9-15.3FDetwiler Memorial HospitalGlobulin Calc (S) [Mass/Vol]Ordered By: Farhana Sotomayor on 07-74-3650Ufprnpae (S) [Mass/Vol] 2.7 g/dLMercy Health St. Elizabeth Boardman HospitalGlucose [Mass/volume] in Serum or PlasmaOrdered By: Farhana Sotomayor on 25-66-9290Vsckwdp [Mass/Vol]135 mg/dL 70-100[facility] HospitalComment on above:ADA recommended reference rangeRandom Glucose Reference Range is dependent on time and content of last meal. Glucose of more than 200 mg/dL in a nonstressed, ambulatory subject supports the diagnosisof Diabetes Mellitus.Hematocrit Auto (Bld) [Volume fraction]Ordered By: Farhana Sotomayor on 75-82-6405Rneolhuvqh (Bld) [Volume fraction]35.5 %34.0-46.4FDetwiler Memorial HospitalHemoglobin [Mass/volume] in BloodOrdered By: Farhana Sotomayor on 50-89-6263Msgihxcpou (Bld) [Mass/Vol]11.5 g/dL11.8-15.4FDetwiler Memorial HospitalLactate dehydrogenase [Enzymatic activity/volume] in Serum or Plasma by Lactate to py Ordered By: Farhana Sotomayor on 32-94-9156FVW Lactate to pyruvate reaction [Catalytic activity/Vol]118 U/F118-510NbklgawkdMercy Health St. Elizabeth Board[facility] Hospital Leukocytes [#/volume] corrected for nucleated erythrocytes in Blood by Automated counOrdered By: Farhana Sotomayor on 57-84-3364BHJ corrected for nucl RBC Auto (Bld) [#/Vol]7.6 10*3/uL3.8-11.6FDetwiler Memorial Hospital Lymphocytes Auto (Bld) [#/Vol]Ordered By: Farhana Sotomayor on 12-13-2023 Lymphocytes (Bld) [#/Vol]1.9 10*3/uL1.00-4.8[facility] Lymphocytes/100 WBC Auto (Bld)Ordered By: Farhana Sotomayor on 12-13-2023 Lymphocytes/100 WBC (Bld)25.0 %.[facility] HospitalH Auto (RBC) [Entitic mass]Ordered By: Farhana Sotomayor on 57-34-7944AQT (RBC) [Entitic mass]28.3 pg24.7-34.3FDetwiler Memorial HospitalMCHC Auto (RBC) [Mass/Vol] Ordered By: Farhana Sotomayor on 82-59-6985NOLA (RBC) [Mass/Vol]32.5 g/dL 32.0-35.0[facility] HospitalMCV Auto (RBC) [Entitic vol]Ordered By: Farhana Sotomayor on 58-25-6794XYF (RBC) [Entitic vol]87.2 tI28-[address] [facility] HospitalMagnesium [Mass/volume] in Serum or Plasma Ordered By: Zabrina Simon on 04-38-1653Djgenqnic [Mass/Vol]1.5 mg/dL1.9-2.[address] [facility] HospitalMonocytes Auto (Bld) [#/Vol]Ordered By: Farhana Sotomayor on 38-84-8665Ktupsvqze (Bld) [#/Vol]0.6 10*3/uL0.0-0.8[facility] HospitalMonocytes/100 WBC Auto (Bld)Ordered By: Farhana Sotomayor on 21-50-6491Nwdxiyzdu/100 WBC (Bld)8.3 %.[facility] HospitalNatriuretic peptide B [Mass/Vol]Ordered By: Zabrina Simon on 12-13-2023 Natriuretic peptide B (Bld) [Mass/Vol]70.0 pg/mL5-100[facility] HospitalNeutrophils Auto (Bld) [#/Vol]Ordered By: Farhana Sotomayor on 87-14-7329Gfliatnkumh (Bld) [#/Vol]4.8 10*3/uL1.8-7.7FDetwiler Memorial HospitalNeutrophils/100 WBC Auto (Bld)Ordered By: Farhana Sotomayor on 02-09-2869Ziraogxhluu/100 WBC (Bld)63.1 %.[facility] HospitalNo Panel InformationOrdered By: Farhana Sotomayor on 00-12-2552Rffsnjwoa GFR (CKD-EPI)55.755 mL/MinMercy Health St. Elizabeth Boardman HospitalPharmacy Creatinine Clearance (Chem51.93[facility] HospitalNucleated erythrocytes [Presence] in Blood by Automated countOrdered By: Farhana Sotomayor on 72-60-9215Vsgjjkqvz RBC Auto Ql (Bld)0.0 /100{WBC}0-0.5FDetwiler Memorial HospitalPlatelet mean volume Auto (Bld) [Entitic vol]Ordered By: Farhana Sotomayor on 37-05-3308Zzorlqve mean volume (Bld) [Entitic vol]7.5 fL6.3-10.[address] [facility] Board[facility] HospitalPlatelets Auto (Bld) [#/Vol]Ordered By: Farhana Sotomayor on 30-37-4857Wizquxqfm (Bld) [#/Vol]220 10*3/sJ117-837XwylypkelMercy Health St. Elizabeth Boardman HospitalPotassium [Moles/volume] in Serum or PlasmaOrdered By: Farhana Sotomayor on 84-01-9942Fslafwxlk [Moles/Vol]5.3 mmol/L3.5-5.1FDetwiler Memorial HospitalProtein [Mass/volume] in Serum or PlasmaOrdered By: Farhana Sotomayor on 12-63-7598Tqhtlkb [Mass/Vol]6.7 g/dL6.4-8.9[facility] HospitalRBC Auto (Bld) [#/Vol]Ordered By: Farhana Sotomayor on 30-72-9888QUQ (Bld) [#/Vol]4.07 10*6/uL3.60-5.00WVUMedicine Barnesville Hospitalerum or plasma albumin/globulin mass ratioOrdered By: Farhana Sotomayor on 96-39-2010Wkvvzek/Globulin [Mass ratio]1.5 {ratio}[facility] Hospitalerum or plasma anion gap determinationOrdered By: Farhana Sotomayor on 53-80-3943Hihak gap [Moles/Vol]14.4 mmol/L6.0-15.0WVUMedicine Barnesville Hospitalodium [Moles/volume] in Serum or PlasmaOrdered By: Farhana Sotomayor on 87-77-1309Iprlqq [Moles/Vol]139 mmol/H713-753VlodghuxoMercy Health St. [facility] Hospital Urea nitrogen [Mass/volume] in Serum or PlasmaOrdered By: Farhana Sotomayor on 01-94-8295Degv nitrogen [Mass/Vol]27 mg/dL7-25[facility] WBC Auto (Bld) [#/Vol]Ordered By: Farhana Sotomayor on 99-53-4700YVF (Bld) [#/Vol]7.6 10*3/uL3.8-11.6FDetwiler Memorial HospitalOperative Reporton 44-27-8723Gzdcmiaxc ReportIndication for Surgery Wound dehiscence left total knee Preoperative Diagnosis Wound dehiscence left total knee Postoperative Diagnosis Wound dehiscence left total knee Operation Debridement Lower Extremity, INCISION AND DRAINAGE LEFT KNEE, SECONDARY CLOSURE OF WOUND DEHISENCE,PREVENNA PLACMENT, Left, Knee Surgeon(s) Ronaldo JUAREZ, Aly Guzman (Surgeon - Primary) Java J2Ee Technical Lead Dee Dee Browne (Rivet Heater) Anesthesia General Mile JUAREZ, Hank Richard (Commercial Singer) Joleen Lala (Provider) Estimated Blood Loss 10 [...] out with normal saline solution with 80 mgof gentamicin and a 1 L bag. It was then irrigated out with Vashe. After this vancomycin powder was sprinkled in the wound and the wound was closed with 3-0 nylon mattress sutures. Good reapproximation of the wound was obtained. A Prevena wound dressing was applied. General anesthetic was discontinued. Patient was transferred to recovery in stable condition. Will be discharged home with [place] andKeflex 500 mg p.o. 3 times daily x 7 days. Return the office in 1 week for wound check. Tourniquet Time NA Sponge/Needle Count correct Fluid Count as per chart Catheters, Drains, Tubes Prevena Electronically signed by Aly Higgins MD 11/09/23 17:29 ESTNormAshtabula County Medical Center POC Glucose Randomon 62-14-5119Hrfjujr [Mass/Vol]118 mg/xELrys73-05FeesjevqoUk HealthcareComment on above:Performed By: #### CD:[id number] #### [address] [address]Ektboyb [Mass/Vol]137 mg/uDEqku97-80MkhibpjkpUk HealthcareComment on above:Performed By: #### CD:[id number] #### [address] [address]Dmpmvrn [Mass/Vol]138 mg/aFTzvt82-83EiagpijmkUk HealthcareComment on above:Performed By: #### CD:[id number] #### [address] [address]Opg/Hcton 32-29-0626Dlhtvwsozb (Bld) [Volume fraction]35.2 %Low 36.3-47.1Mer[facility] Danbury HospitalComment on above:Performed By: #### HH #### [facility] [address] [place] [address] [place] [address] Hand Suture Winder: Alexey Rob MDHemoglobin (Bld) [Mass/Vol]11.5 g/dLLow11.9-15.1 [facility] HospitalComment on above:Performed By: #### HH #### [facility] [address] [place] [address] Hand Suture Winder: Alexey Rob MDOPERATIVE REPORTon 39-30-6929OKIMWPWRO[address] [address] OPERATIVE REPORT PATIENT NAME: TOSHA MCNEAL : 1950 MED REC NO: [id number] ROOM: [facility] ACCOUNT NO: [id number] ADMIT DATE: 10/03/2023 PROVIDER: Aly Higgins DATE [...] to go with a 32-mm patellar dome. [place] holes were placed. Knee was then cleansed [...] layer was then closed with #1 Vicryl aidfuf-ax-opckw sutures over two Hemovac drains. Vancomycin powder [...] a stable condition. ALY HIGGINS PH/V_CGARP_T Doc#: [id number] CC:NormalOhio State East HospitalMRSA, DNA, Nasalon 68-96-8052JKBJ, DNA, Nasal NegativeNormalNEGOhio State East HospitalComment on above:Result Comment: NEGATIVE: MRSA DNA not detected by nucleic acid amplification. Results should be used as an adjunct to nosocomial control efforts to identify patients needing enhanced precautions. The test is not intended to identify patients with staphylococcal infections. Results should not be used to guide or monitor treatment for MRSA infections. Performed By: #### MRSANO #### [facility] [address] [place] [address] Hand Suture Winder: Jose Miguel Davis MD [facility] [address] [place] [address] Hand Suture Winder: Marv Purvisandres Metabolic Profon 97-96-1945Fzxuj gap [Moles/Vol]12 mmol/LNormal9-17[facility] HospitalComment on above:Performed By: #### BMP, CDP #### [facility] [address] [place] [address] Dr. [place], [place] [address] Hand Suture Winder: Alexey Rob MDBUN/CRE Etopx68Rxri0-00FmlckOhio State East Hospital Comment on above:Performed By: #### BMP, CDP #### [facility] [address] [place] [address] Dr[address] [place], [place] [id number] Hand Suture Winder: LAURI Purvisalcium [Mass/Vol]9.9 mg/dLNormal8.6-10.4[facility] HospitalComment on above:Performed By: #### BMP, CDP #### [address] [place], [place] [id number] Hand Suture Winder: LAURI Purvishloride [Moles/Vol]99 mmol/ZUtrkqb00-843Dxkap [facility]iffin HospitalComment on above:Performed By: #### BMP, CDP #### [address] [place], [place] [address]83 Hand Suture Winder: Alexey Rob MDCO2 [Moles/Vol]27 mmol/RTahyze30-36WkrszOhio State East HospitalComment on above:Performed By: #### BMP, CDP #### [address] [place], [place] [address]483 Hand Suture Winder: LAURI Purvisreatinine [Mass/Vol]1.0 mg/dLHigh0.5-0.9[facility] HospitalComment on above:Performed By: #### BMP, CDP #### [address] [place] [address] Hand Suture Winder: Alexey Rob MDGFR/1.73 sq M.predicted among non-blacks MDRD (S/P/Bld) [Vol rate/Area]59 mL/min/{1.73_m2}Low>60[facility] HospitalComment on above:Result Comment: These results are not intended for [...] or following therapy that affects renal tubular secretion.Performed By: #### BMP, CDP #### [address] [place], [place] [id number] Hand Suture Winder: Alexey Rob MDGlucose [Mass/Vol]126 mg/fHYwvf35-91Tacnr [facility] HospitalComment on above:Performed By: #### CATHERINE, CDP #### [address] [place], [place] [id number] Hand Suture Winder: BETITO Purvisotassium [Moles/Vol]4.9 mmol/LNormal3.7-5.3[facility] HospitalComment on above:Performed By: #### CATHERINE, CDP #### [address] [place] [address] Hand Suture Winder: ABNER Purvisodium [Moles/Vol]138 mmol/JNfpyto301-271Tsdgq [facility] HospitalComment on above:Performed By: #### BMP, CDP #### [address] [place] [address] Hand Suture Winder: Alexey Rob MDUrea nitrogen [Mass/Vol]35 mg/dLHigh8-23[facility] HospitalComment on above:Performed By: #### CATEHRINE, CDP #### [address] [place], [place] [id number] Hand Suture Winder: Alexey Rob [facility] with Diffon 28-29-7417Zkm. Basophil0.07 k/uL Normal0.00-0.20[facility] HospitalComment on above:Performed By: #### BMP, CDP #### [address] [place] [id number] Hand Suture Winder: Anna Purvis.Imm.Granulocyte0.04 k/uLNormal0.00-0.30[facility] HospitalComment on above:Performed By: #### BMP, CDP #### [address] [place] [address] Hand Suture Winder: Anna Purvis.Neutrophil (Seg)5.10 k/uLNormal1.50-8.10[facility] HospitalComment on above:Performed By: #### BMP, CDP #### [address] [place] [address] Hand Suture Winder: Alexey Rob MDBasophils/100 WBC (Bld)1 %Normal0-2MKing[facility] HospitalComment on above:Performed By: #### CATHERINE, CDP #### [address] [place], [place] [address] Hand Suture Winder: Alexey Rob MDEosinophils (Bld) [#/Vol]0.13 10*3/uLNormal 0.00-0.44[facility] HospitalComment on above:Performed By: #### CATHERINE, CDP #### [address] [place], [place] [address] Hand Suture Winder: Alexey Rob MDEosinophils/100 WBC (Bld)2 %Normal1-4[facility] HospitalComment on above:Performed By: #### BMP, CDP #### [address] [place], [place] [address] Hand Suture Winder: Alexey Rob MDErythrocyte distribution width (RBC) [Ratio]13.6 % Utorrx02.8-14.4[facility] HospitalComment on above:Performed By: #### BMP, CDP #### [address] [place] [id number] Hand Suture Winder: Alexey Rob MDHematocrit (Bld) [Volume fraction]44.2 %Normal 36.3-47.1MKing's Daughters Medical Center [place] HospitalComment on above:Performed By: #### BMP, CDP #### [address] Jensen, [place] [id number] Hand Suture Winder: Alexey Rob MDHemoglobin (Bld) [Mass/Vol]14.1 g/dLNormal 11.9-15.1MKing's Daughters Medical Center [place] HospitalComment on above:Performed By: #### BMP, CDP #### [address] Jensen, [facility]83 Hand Suture Winder: Sarah Purvismature granulocytes/100 WBC (Bld)1 %Rduw2CjnjrOhio State East HospitalComment on above:Performed By: #### BMP, CDP #### [address] Jensen, [facility]83 Hand Suture Winder: Alexey Rob MDLymphocytes (Bld) [#/Vol]1.87 10*3/uLNormal 1.10-3.70[facility] HospitalComment on above:Performed By: #### BMP, CDP #### [address] Jensen, [facility]83 Hand Suture Winder: Atul Purvismphocytes/100 WBC (Bld)24 %Kfmemu98-60Mrutx [facility]iffin HospitalComment on above:Performed By: #### BMP, CDP #### [address] [place], [place] [id number] Hand Suture Winder: BERTO PurvisCH (RBC) [Entitic mass]29.5 mlDwdwuj26.2-33.5 [place] [facility] HospitalComment on above:Performed By: #### BMP, CDP #### [address] Jensen, [place] [id number] Hand Suture Winder: BERTO PurvisCHC (RBC) [Mass/Vol]31.9 g/kVHzdykw67.4-34.8[facility] HospitalComment on above:Performed By: #### BMP, CDP #### [address] [place], [place] [id number] Hand Suture Winder: BERTO PurvisCV (RBC) [Entitic vol]92.5 zJMnwcke30.6-102.9 [place] [facility] HospitalComment on above:Performed By: #### BMP, CDP #### [address] [place], [place] [id number] Hand Suture Winder: BERTO Purvisonocytes (Bld) [#/Vol]0.75 10*3/uLNormal0.10-1.20 [place] [facility] HospitalComment on above:Performed By: #### BMP, CDP #### [address] Jensen, [facility]83 Hand Suture Winder: BERTO Purvisonocytes/100 WBC (Bld)9 %Normal3-12[facility] HospitalComment on above:Performed By: #### BMP, CDP #### [address] [place], [place] [id number] Hand Suture Winder: Alexey Rob MDNeutrophil (Seg)63 %Gudtxc16-54OjcbjOhio State East HospitalComment on above:Performed By: #### BMP, CDP #### [address] [place], [place] [id number] Hand Suture Winder: Alexey Rob MDNRBC Automated0.0 per 100 WBCNormal0.0[facility] HospitalComment on above:Performed By: #### BMP, CDP #### [address] [place] [address] Hand Suture Winder: BETITO Purvislatelet mean volume (Bld) [Entitic vol]9.6 fL Normal8.1-13.5[facility] HospitalComment on above:Performed By: #### BMP, CDP #### [address] [place], [place] 498[address]83 Hand Suture Winder: Sima Purvis ([facility]) [#/Vol]205 10*3/iEPpwite956-146 [facility] HospitalComment on above:Performed By: #### BMP, CDP #### [address] [place] [address] Hand Suture Winder: JEANETTE Purvis ([facility]) [#/Vol]4.78 10*6/uLNormal3.95-5.11[facility] HospitalComment on above:Performed By: #### BMP, CDP #### [address] [place], [place] [id number] Hand Suture Winder: LARON Purvis ([facility]) [#/Vol]8.0 10*3/uLNormal3.5-11.3MKing's Daughters Medical Center [place] HospitalComment on above:Performed By: #### BMP, CDP #### [address] [place], [place] [address]83 Hand Suture Winder: MARLYN Purvis DNA, Nasalon 22-38-1005Mfhuziix Description .NASAL SWABNormalMer[facility] Health [facility] HospitalComment on above:Performed By: #### MRSANO #### [address] [id number] Hand Suture Winder: Jose Miguel Davis MD [address] [place] [address] Hand Suture Winder: Alexey Rob MDType + Screenon 79-53-7022Upbp + ScreenSample Expiration 10/06/2023,2359 Arm Band Number [id number] ABO/Rh(D) A POSITIVE Antibody Screen NEGATIVENormalMer[facility] Health [facility] HospitalComment on above:Performed By: #### TYS #### [address] [place] [address] Hand Suture Winder: Tremayne Purvis aminotransferase [Enzymatic activity/volume] in Serum or PlasmaOrdered By: Rose Ohara on 40-60-9367NRY [Catalytic activity/Vol]13 U/L7-52[facility] HospitalAlbumin [Mass/volume] in Serum or Plasma by Bromocresol green (BCG) dye binding metho Ordered By: Rose Ohara on 00-83-9379Deqbyuk BCG dye [Mass/Vol]4.5 g/dL3.5-5.[address] [facility] HospitalAlkaline phosphatase [Enzymatic activity/volume] in Serum or PlasmaOrdered By: Rose Ohara on 86-02-9292FWN [Catalytic activity/Vol]48 U/J48-017ZsklyxhwrMercy Health St. Elizabeth Boardman HospitalAspartate aminotransferase [Enzymatic activity/volume] in Serum or PlasmaOrdered By: Rose Ohara on 32-22-9730PLQ [Catalytic activity/Vol]11 U/G99-29DlbjqtpmpMercy Health St. Elizabeth Board[facility] HospitalBasophils Auto (Bld) [#/Vol]Ordered By: Rose Ohara on 08-09-2023 Basophils (Bld) [#/Vol]0.1 10*3/uL0.0-0.2FDetwiler Memorial Hospital Basophils/100 WBC Auto (Bld)Ordered By: Rose Ohara on 47-82-9292Cbfsjlspi/100 WBC (Bld)1.3 %.[facility] HospitalBilirubin.total [Mass/volume] in Serum or PlasmaOrdered By: Rose Ohara on 96-55-1976Ijospfnia [Mass/Vol]1.1 mg/dL 0.3-1.0[facility] HospitalCalcium [Mass/volume] in Serum or Plasma Ordered By: Rose Ohara on 89-71-4659Lrprpam [Mass/Vol]9.8 mg/dL8.6-10.3FDetwiler Memorial HospitalCarbon dioxide, total [Moles/volume] in Serum or Plasma Ordered By: Rose Ohara on 08-96-1746RB3 [Moles/Vol]27.9 mmol/L21.0-31.0[facility] HospitalChloride [Moles/volume] in Serum or PlasmaOrdered By: Rose Ohara on 66-05-4413Wfifgeec [Moles/Vol]104 mmol/F95-149JknxqwhtuMercy Health St. Elizabeth Boardman HospitalCreatinine [Mass/volume] in Serum or PlasmaOrdered By: Rose Ohara on 39-21-0179Fzlnjlzplh [Mass/Vol]0.86 mg/dL0.60-1.20[facility] HospitalEosinophils Auto (Bld) [#/Vol]Ordered By: Rose Ohara on 08-09-2023 Eosinophils (Bld) [#/Vol]0.1 10*3/uL0.0-0.45[facility] Eosinophils/100 WBC Auto (Bld)Ordered By: Rose Ohara on 14-77-6603Lrbzqtmpdmw/100 WBC (Bld)1.9 %.[facility] HospitalErythrocyte distribution width Auto (RBC) [Ratio]Ordered By: Rose Ohara on 79-52-7755Hjvwpsacjfb distribution width (RBC) [Ratio]14.5 %11.9-15.3FDetwiler Memorial HospitalGlobulin Calc (S) [Mass/Vol]Ordered By: Rose Ohara on 25-12-9843Iywvpulu (S) [Mass/Vol]2.5 g/dLMercy Health St. Elizabeth Boardman HospitalGlucose [Mass/volume] in Serum or Plasma Ordered By: Rose Ohara on 93-73-6141Imkavts [Mass/Vol]168 mg/vJ72-964FxjattfwsMercy Health St. Elizabeth Boardman HospitalComment on above:ADA recommended reference rangeRandom Glucose Reference Range is dependent on time and content of last meal. Glucose of more than 200 mg/dL in a nonstressed, ambulatory subject supports the diagnosisof Diabetes Mellitus.Hematocrit Auto (Bld) [Volume fraction]Ordered By: Rose Ohara on 93-95-7623Hutbxsmgwt (Bld) [Volume fraction]41.7 %34.0-46.[address] [facility] HospitalHemoglobin [Mass/volume] in BloodOrdered By: Rose Ohara on 42-48-0380Hjkozdhtmq (Bld) [Mass/Vol]13.6 g/dL11.8-15.4FDetwiler Memorial HospitalLactate dehydrogenase [Enzymatic activity/volume] in Serum or Plasma by Lactate to pyOrdered By: Rose Ohara on 34-18-1600DBD Lactate to pyruvate reaction [Catalytic activity/Vol]135 U/A171-246LgdmjwpdkMercy Health St. Elizabeth Board[facility] HospitalLeukocytes [#/volume] corrected for nucleated erythrocytes in Blood by Automated counOrdered By: Rose Ohara on 22-09-6809LUX corrected for nucl RBC Auto (Bld) [#/Vol]6.5 10*3/uL3.8-11.6FDetwiler Memorial Hospital Lymphocytes Auto (Bld) [#/Vol]Ordered By: Rose Ohara on 14-11-1760Oibswziaokk (Bld) [#/Vol]1.6 10*3/uL1.00-4.8[facility] HospitalLymphocytes/100 WBC Auto (Bld)Ordered By: Rose Ohara on 16-22-7271Oerovjhbzys/100 WBC (Bld)23.9 %.[facility] Auto (RBC) [Entitic mass]Ordered By: Rose Ohara on 28-98-3849GTP (RBC) [Entitic mass]29.6 pg24.7-34.3FDetwiler Memorial HospitalMCHC Auto (RBC) [Mass/Vol]Ordered By: Rose Ohara on 13-08-4215OZCF (RBC) [Mass/Vol]32.6 g/dL32.0-35.0[facility] HospitalMCV Auto (RBC) [Entitic vol]Ordered By: Rose Ohara on 49-28-3202GJZ (RBC) [Entitic vol] 90.7 yY97-950AnphvlhnzMercy Health St. Elizabeth Boardman HospitalMonocytes Auto (Bld) [#/Vol] Ordered By: Rose Ohara on 92-87-3321Dmyvwvluz (Bld) [#/Vol]0.6 10*3/uL0.0-0.[address] [facility] HospitalMonocytes/100 WBC Auto (Bld)Ordered By: Rose Ohara on 65-19-1238Lzbsgnefv/100 WBC (Bld)9.2 %.[facility] HospitalNeutrophils Auto (Bld) [#/Vol]Ordered By: Rose Ohara on 08-09-2023 Neutrophils (Bld) [#/Vol]4.1 10*3/uL1.8-7.7FDetwiler Memorial Hospital Neutrophils/100 WBC Auto (Bld)Ordered By: Rose Ohara on 63-12-8909Eiuaeobvfus/100 WBC (Bld)63.7 %.[facility] HospitalNo Panel InformationOrdered By: Rose Ohara on 81-16-9966Iximlofff GFR (CKD-EPI)> 60.0 mL/MinMercy Health St. Elizabeth Boardman HospitalPharmacy Creatinine Clearance (Chem64.19[facility] HospitalNucleated erythrocytes [Presence] in Blood by Automated countOrdered By: Rose Ohara on 01-51-7647Obubaqhzo RBC Auto Ql (Bld)0.1 /100{WBC} 0-0.5FDetwiler Memorial HospitalPlatelet mean volume Auto (Bld) [Entitic vol]Ordered By: Rose Ohara on 57-74-3718Jjvaaves mean volume (Bld) [Entitic vol] 7.8 fL6.3-10.7FDetwiler Memorial HospitalPlatelets Auto (Bld) [#/Vol] Ordered By: Rose hOara on 14-43-9585Lojjmarty (Bld) [#/Vol]200 10*3/gD227-[address] [facility] HospitalPotassium [Moles/volume] in Serum or Plasma Ordered By: Rose Ohara on 11-18-2216Xbtgecnlc [Moles/Vol]5.1 mmol/L3.5-5.[address] [facility] HospitalProtein [Mass/volume] in Serum or PlasmaOrdered By: Rose Ohara on 21-44-0311Sbrqtzz [Mass/Vol]7.0 g/dL6.4-8.9[facility] HospitalRBC Auto (Bld) [#/Vol]Ordered By: Rose Ohara on 39-17-2085PQL (Bld) [#/Vol]4.59 10*6/uL3.60-5.00[facility] Hospitalerum or plasma albumin/globulin mass ratioOrdered By: Rose Ohara on 01-28-6815Kwmfzsw/Globulin [Mass ratio]1.8 {ratio}[facility] Hospitalerum or plasma anion gap determinationOrdered By: Rose Ohara on 82-26-2637Kuzuq gap [Moles/Vol]13.2 mmol/L6.0-15.0[facility] Hospitalodium [Moles/volume] in Serum or PlasmaOrdered By: Rose Ohara on 88-84-4624Thhfui [Moles/Vol]140 mmol/W112-[address] [facility] HospitalUrea nitrogen [Mass/volume] in Serum or Plasma Ordered By: Rose Ohara on 27-00-6624Gjby nitrogen [Mass/Vol]26 mg/dL7-25[facility] HospitalWBC Auto (Bld) [#/Vol]Ordered By: Rose Ohara on 28-65-5841IJA (Bld) [#/Vol]6.5 10*3/uL3.8-11.6FDetwiler Memorial Hospital Alanine aminotransferase [Enzymatic activity/volume] in Serum or PlasmaOrdered By: Rose Ohara on 59-24-8867WFT [Catalytic activity/Vol]17 U/L7-52[facility] HospitalAlbumin [Mass/volume] in Serum or Plasma by Bromocresol green (BCG) dye binding methoOrdered By: Rose Ohara on 66-33-2155[place] BCG dye [Mass/Vol]4.1 g/dL3.5-5.7FDetwiler Memorial HospitalAlkaline phosphatase [Enzymatic activity/volume] in Serum or PlasmaOrdered By: Rose Ohara on 88-68-2369DFY [Catalytic activity/Vol]57 U/M07-332QbcjmqwcsMercy Health St. Elizabeth Board[facility] HospitalAspartate aminotransferase [Enzymatic activity/volume] in Serum or Plasma Ordered By: Rose Ohara on 75-82-0723EZJ [Catalytic activity/Vol]16 U/L13-[address] [facility] HospitalBasophils Auto (Bld) [#/Vol]Ordered By: Rose Ohara on 12-44-2378Qpztdswvg (Bld) [#/Vol]0.1 10*3/uL0.0-0.2FDetwiler Memorial HospitalBasophils/100 WBC Auto (Bld)Ordered By: Rose Ohara on 04-12-2023 Basophils/100 WBC (Bld)0.9 %.[facility] HospitalBilirubin.total [Mass/volume] in Serum or PlasmaOrdered By: Rose Ohara on 57-36-3645Hqfxdbrwr [Mass/Vol]0.9 mg/dL0.3-1.0[facility] HospitalCalcium [Mass/volume] in Serum or PlasmaOrdered By: Rose Ohara on 04-86-4681Rtgdotb [Mass/Vol]9.1 mg/dL8.6-10.3FDetwiler Memorial HospitalCarbon dioxide, total [Moles/volume] in Serum or PlasmaOrdered By: Rose Ohara on 71-28-7760PC8 [Moles/Vol]27.2 mmol/L21.0-31.0[facility] HospitalChloride [Moles/volume] in Serum or PlasmaOrdered By: Rose Ohara on 81-61-9516Wpfqordy [Moles/Vol]102 mmol/J72-541IadpisxjrMercy Health St. Elizabeth Board[facility] HospitalCreatinine [Mass/volume] in Serum or PlasmaOrdered By: Rose Ohara on 04-95-8383Rsckniqdmb [Mass/Vol]1.01 mg/dL0.60-1.20[facility] HospitalEosinophils Auto (Bld) [#/Vol]Ordered By: Rose Ohara on 47-75-8333Vzjvhyclpom (Bld) [#/Vol]0.2 10*3/uL0.0-0.45[facility] HospitalEosinophils/100 WBC Auto (Bld) Ordered By: Rose Ohara on 67-73-3752Wybkfbetywc/100 WBC (Bld)2.2 %.[facility] HospitalErythrocyte distribution width Auto (RBC) [Ratio]Ordered By: Rose Ohara on 55-52-9840Cndyyxbtkyi distribution width (RBC) [Ratio]14.7 % 11.9-15.3FDetwiler Memorial HospitalGlobulin Calc (S) [Mass/Vol]Ordered By: Rose Ohara on 62-81-7064Jdiehdmr (S) [Mass/Vol]2.6 g/dLMercy Health St. Elizabeth Boardman HospitalGlucose [Mass/volume] in Serum or PlasmaOrdered By: Rose Ohara on 59-69-0486Vryayfh [Mass/Vol]203 mg/aE87-530HooafalzqMercy Health St. [facility] Comment on above:ADA recommended reference rangeRandom Glucose Reference Range is dependent on time and content of last meal. Glucose of more than 200 mg/dL in a nonstressed, ambulatory subject supports the diagnosisof Diabetes Mellitus. Hematocrit Auto (Bld) [Volume fraction]Ordered By: Rose Ohara on 04-12-2023 Hematocrit (Bld) [Volume fraction]41.4 %34.0-46.4FDetwiler Memorial HospitalHemoglobin [Mass/volume] in BloodOrdered By: Rose Ohara on 04-12-2023 Hemoglobin (Bld) [Mass/Vol]13.5 g/dL11.8-15.4FDetwiler Memorial Hospital Lactate dehydrogenase [Enzymatic activity/volume] in Serum or Plasma by Lactate to pyOrdered By: Rose Ohara on 58-88-1296PMK Lactate to pyruvate reaction [Catalytic activity/Vol]120 U/E376-723HdmczkqigMercy Health St. [facility] Hospital Leukocytes [#/volume] corrected for nucleated erythrocytes in Blood by Automated counOrdered By: Rose Ohara on 05-10-4713NWP corrected for nucl RBC Auto (Bld) [#/Vol]6.9 10*3/uL3.8-11.6FDetwiler Memorial HospitalLymphocytes Auto (Bld) [#/Vol]Ordered By: Rose Ohara on 48-02-5351Phthjsunnxu (Bld) [#/Vol]1.8 10*3/uL1.00-4.8[facility] HospitalLymphocytes/100 WBC Auto (Bld) Ordered By: Rose Ohara on 11-74-7950Mytyhmtqoge/100 WBC (Bld)26.0 %.[facility] HospitalMCH Auto (RBC) [Entitic mass]Ordered By: Rose Ohara on 73-08-3470NLM (RBC) [Entitic mass]29.3 pg24.7-34.3FDetwiler Memorial HospitalMCHC Auto (RBC) [Mass/Vol]Ordered By: Rose Ohara on 48-54-4888OKRL (RBC) [Mass/Vol]32.7 g/dL32.0-35.0[facility] HospitalMCV Auto (RBC) [Entitic vol]Ordered By: Rose Ohara on 99-12-4825JIV (RBC) [Entitic vol]89.4 fL 80-100[facility] HospitalMonocytes Auto (Bld) [#/Vol]Ordered By: Rose Ohara on 60-71-1142Obwqkrooz (Bld) [#/Vol]0.6 10*3/uL0.0-0.8[facility] HospitalMonocytes/100 WBC Auto (Bld)Ordered By: Rose Ohara on 69-47-0285Xnhacsbld/100 WBC (Bld)8.6 %.[facility] Neutrophils Auto (Bld) [#/Vol]Ordered By: Rose Ohara on 08-27-2512Tbpishhdwrt (Bld) [#/Vol]4.3 10*3/uL1.8-7.7FDetwiler Memorial HospitalNeutrophils/100 WBC Auto (Bld)Ordered By: Rose Ohara on 28-20-4420Giddfutqelq/100 WBC (Bld)62.3 % .[facility] HospitalNo Panel InformationOrdered By: Rose Ohara on 19-13-1265Eppsjxpgz GFR (CKD-EPI)58.780 mL/MinMercy Health St. [facility] Pharm[facility] Creatinine Clearance (Chem54.77[facility] Nucleated erythrocytes [Presence] in Blood by Automated countOrdered By: Rose Ohara on 76-90-7115Fgtauddbs RBC Auto Ql (Bld)0.1 /100{WBC}0-0.5FDetwiler Memorial HospitalPlatelet mean volume Auto (Bld) [Entitic vol]Ordered By: Rose Ohara on 42-27-3214Dakqohee mean volume (Bld) [Entitic vol]8.3 fL6.3-10.[address] [facility] HospitalPlatelets Auto (Bld) [#/Vol]Ordered By: Rose Ohara on 65-23-4019Gggpwhthg (Bld) [#/Vol]197 10*3/kW186-544WrwqtyobeMercy Health St. [facility] HospitalPotassium [Moles/volume] in Serum or PlasmaOrdered By: Rose Ohara on 93-77-7914Mnupohknj [Moles/Vol]4.8 mmol/L3.5-5.1FDetwiler Memorial HospitalProtein [Mass/volume] in Serum or PlasmaOrdered By: Rose Ohara on 81-08-1218Qmhvpzm [Mass/Vol]6.7 g/dL6.4-8.9[facility] HospitalRBC Auto (Bld) [#/Vol]Ordered By: Rose Ohara on 52-60-2536AMZ (Bld) [#/Vol]4.62 10*6/uL3.60-5.00[facility] Hospitalerum or plasma albumin/globulin mass ratioOrdered By: Rose Ohara on 33-84-8918Iwqxklt/Globulin [Mass ratio]1.6 {ratio}[facility] Hospitalerum or plasma anion gap determinationOrdered By: Rose Ohara on 73-89-5795Krrcm gap [Moles/Vol]15.6 mmol/L6.0-15.0[facility] Hospitalodium [Moles/volume] in Serum or PlasmaOrdered By: Rose Ohara on 49-82-0157Junxnl [Moles/Vol]140 mmol/C930-[address] [facility] HospitalUrea nitrogen [Mass/volume] in Serum or Plasma Ordered By: Rose Ohara on 05-35-1719Pbdv nitrogen [Mass/Vol]34 mg/dL7-25[facility] HospitalWBC Auto (Bld) [#/Vol]Ordered By: Rose Ohara on 30-54-8811POW (Bld) [#/Vol]6.9 10*3/uL3.8-11.6FDetwiler Memorial Hospital LIPID PROFILEon 68-97-5780ISMJ-HDL RATIO NORMSEE [facility] HospitalComment on above:Result Comment: 3.3 - 4.4 LOW RISK 4.4 - 7.1 AVERAGE RISK 7.1 - 11.0 MODERATE RISK >11.0 HIGH RISKPerformed By: #### LIPID #### [facility] [address] [address] [address] Claudia BranchCholesterol [Mass/Vol]129 mg/dLNormal<=200[facility] Comment on above:Performed By: #### LIPID #### [facility] [address] [place], [place] [address] Dr. Claudia BranchCholesterol in HDL [Mass/Vol]43 mg/hDPcousz83-21WciSelect Medical Specialty Hospital - AkronComment on above:Performed By: #### LIPID #### [facility] [address] [place] [address] Dr. Claudia BranchCholesterol in LDL [Mass/Vol]34.4 mg/dLGalion Hospital on above:Performed By: #### LIPID #### [facility] [address] [place] [address] Dr. Claudia Ramseyesterol.total/Cholesterol in HDL [Mass ratio]3.0 {ratio} NormalThe [facility] on above:Performed By: #### LIPID #### [facility] [address] [place] [address] Dr. Claudia Hines NORMAL> or = 60 mg/dl - LOW CARDIOVASCULAR RISK <40 mg/dl - HIGH CARDIOVASCULAR RISKGalion Hospital on above:Performed By: #### LIPID #### [facility] [address] [place] [address] Dr. Claudia Mckeon CALC NORMALSEE BELOWUniversity Hospitals Beachwood Medical CenterComcorewell health butterworth hospital on above:Result Comment: <100 mg/dl OPTIMAL 100 - 129 mg/dl NEAR OR ABOVE OPTIMAL 130 - 159 mg/dl BORDERLINE HIGH 160 - 189 mg/dl HIGH >190 mg/dl VERY HIGH Performed By: #### LIPID #### [facility] [address] [place] [address] Dr. Claudia BranchTriglyceride [Mass/Vol]258 mg/dLCritically high<=150[facility] on above:Performed By: #### LIPID #### [facility] [address] [place] [address] Dr. Claudia BranchVLDL CALC51.6 mg/dLNoGrand Lake Joint Township District Memorial HospitalComcorewell health butterworth hospital on above: Performed By: #### LIPID #### [facility] [address] [place] [address] Dr. Claudia BranchPROMayra 14(COMP METB)on 52-57-5221Oaumkan [Mass/Vol]3.7 g/dLNormal 3.4-5.0[facility] on above:Performed By: #### CMP #### [facility] [address] [place] [address] Dr. Claudia BranchAlbumin/Globulin [Mass ratio]1.1 {ratio}NormalThe St. Charles HospitalComment on above:Performed By: #### CMP #### [facility] [address] [place] [address] Dr. Claudia DixonP [Catalytic activity/Vol]66 U/QXlmtsr13-322Iru St[address] Charles HospitalComment on above:Performed By: #### CMP #### [facility] [address] [place] [address] Dr. Claudia DixonT [Catalytic activity/Vol]22 U/CRumvms05-29Aoz [facility] Charles HospitalComment on above:Performed By: #### CMP #### [facility] [address] [place] [address] Dr. Claudia Rhodeson gap [Moles/Vol]15.4 mmol/LNormalThe [facility] Comment on above:Performed By: #### CMP #### [facility] [address] [place] [address] Dr. Claudia BranchAST [Catalytic activity/Vol]14 U/LCritically iyu91-44Oai [facility] Charles HospitalComment on above:Performed By: #### CMP #### [facility] [address] [place] [address] Dr. Claudia BranchBilirubin [Mass/Vol]1.0 mg/dLNormal0.2-1.0The [facility] Comment on above:Performed By: #### CMP #### [facility] [address] [place] [address] Dr. Claudia BranchCalcium [Mass/Vol]9.4 mg/dLNormal8.5-10.1The [facility] Comment on above:Performed By: #### CMP #### [facility] [address] [place] [address] Dr. Claudia BranchChloride [Moles/Vol]102 mmol/AYuyxfd95-954Ges [facility] Comment on above:Performed By: #### CMP #### [facility] [address] [place] [address] Dr. Claudia BranchCO2 [Moles/Vol]28.0 mmol/BWtbfkm63.0-32.0The [facility] Comment on above:Performed By: #### CMP #### [facility] [address] [place] [address] Dr. Claudia BranchCreatinine [Mass/Vol]1.04 mg/dLCritically high0.55-1.02The [facility]. Charles HospitalComment on above:Performed By: #### CMP #### [facility] [address] [place] [address] Dr. Claudia KnoxGFR-AF SAUDI ARABIAN>60Normal>=60The [facility] Charles HospitalComment on above:Performed By: #### CMP #### [facility] [address] [place] [address] Dr. Claudia KnoxGFR-NON AF YOWKHXSD03 mL/min/1.11h1Abcdugigap low>=60The St[facility] Charles HospitalComment on above:Performed By: #### CMP #### [facility] [address] [place] [address] Dr. Claudia BranchGlobulin (S) [Mass/Vol]3.5 g/dLNormalThe St. Charles HospitalComment on above:Performed By: #### CMP #### [facility] [address] [place] [address] Dr. Claudia BranchGlucose [Mass/Vol]174 mg/dLCritically wbjh43-485Mib [facility] HospitalComment on above:Performed By: #### CMP #### [facility] [address] [place] [address] Dr. Claudia BranchPotassium [Moles/Vol]5.4 mmol/LCritically high3.5-5.1The [facility]. Charles HospitalComment on above:Performed By: #### CMP #### [facility] [address] [place] [address] Dr. Claudia BranchProtein [Mass/Vol]7.2 g/dLNormal6.4-8.2The [facility] Comment on above:Performed By: #### CMP #### [facility] [address] [place] [address] Dr. Claudia BranchSodium [Moles/Vol]140 mmol/PCiqmmd040-191Bpw [facility] Comment on above:Performed By: #### CMP #### [facility] [address] [address] [address] Claudia Panchal nitrogen [Mass/Vol]26.0 mg/dLCritically high7.0-18.0[facility] - AkronComment on above:Performed By: #### CMP #### [facility] [address] [address] [address] Claudia BranchUrea nitrogen/Creatinine [Mass ratio]25.0 mg/mgNormalThe St. Charles HospitalComment on above:Performed By: #### CMP #### [facility] [address] [address] [address] Taylor ChangEstimated glomerular filtration rate (GFR) non- Ordered By: Rose Ohara on 08-79-5389FOE/1.73 sq M.predicted among non-blacks MDRD (S/P/Bld) [Vol rate/Area]> 60 mL/MinMercy Health St. Elizabeth Boardman HospitalGFR/1.73 sq M.predicted among non-blacks MDRD (S/P/Bld) [Vol rate/Area]Estimated glomerular filtration rate (GFR) non- AmericanMercy Health St. Elizabeth Boardman HospitalNo Panel InformationOrdered By: Rose Ohara on 74-18-5448Hkbqldzkr GFR ()> 60 mL/MinMercy Health St. Elizabeth Boardman HospitalComment on above:GFR estimated reference range: According to KDOQI guidelines, <60 ml/min/1.73m2 is sufficient todiagnose a patient with chronic kidney disease.Albumin [Mass/volume] in Serum or PlasmaOrdered By: Rose Ohara on 55-29-5289Vznrfpy [Mass/Vol]3.7 g/dL3.2-5.5FDetwiler Memorial HospitalBasophils Auto (Bld) [#/Vol]Ordered By: Rose Ohara on 62-14-7590Zkcxzdtef (Bld) [#/Vol]0.1 10*3/uL 0.0-0.2FDetwiler Memorial HospitalBasophils/100 WBC Auto (Bld)Ordered By: Rose Ohara on 12-82-7121Jsqspptud/100 WBC (Bld)1.0 %.[facility] HospitalCreatinine and Glomerular filtration rate.predicted panel (S/P/Bld)Ordered By: Rose Ohara on 74-49-3920Xwcqqxyayb [Mass/Vol]0.80 mg/dL0.44-1.03[facility] HospitalEosinophils Auto (Bld) [#/Vol]Ordered By: Rose Ohara on 87-16-5393Vzdjatljgtw (Bld) [#/Vol]0.1 10*3/uL0.0-0.45[facility] HospitalEosinophils/100 WBC Auto (Bld)Ordered By: Rose Ohara on 09-22-2022 Eosinophils/100 WBC (Bld)2.0 %.[facility] HospitalErythrocyte distribution width Auto (RBC) [Ratio]Ordered By: Rose Ohara on 09-22-2022 Erythrocyte distribution width (RBC) [Ratio]14.7 %11.9-15.3FDetwiler Memorial HospitalEstimated glomerular filtration rate (GFR) non- Ordered By: Rose Ohara on 12-58-7769WTB/1.73 sq M.predicted among non-blacks MDRD (S/P/Bld) [Vol rate/Area]> 60 mL/MinMercy Health St. Elizabeth Boardman HospitalGlobulin Calc (S) [Mass/Vol]Ordered By: Rose Ohara on 40-43-4158Ueptuzqb (S) [Mass/Vol]2.8 g/dLMercy Health St. Elizabeth Boardman HospitalHematocrit Auto (Bld) [Volume fraction] Ordered By: Rose Ohara on 88-82-3530Cvicnpdsyk (Bld) [Volume fraction]43.2 % 34.0-46.4FDetwiler Memorial HospitalHemoglobin [Mass/volume] in Blood Ordered By: Rose Ohara on 20-95-1489[place] (Bld) [Mass/Vol]13.9 g/dL11.8-15.[address] [facility] HospitalLaboratory - Hematology and Cell countsOrdered By: Rose Ohara on 59-96-5706Yuhpkehgu RBC/100 WBC (Bld) [Ratio]0.1 %0-0.[address] [facility] HospitalLactate dehydrogenase measurement (enzymatic activity/volume)Ordered By: Rose Ohara on 95-99-5454RZP (Unsp spec) [Catalytic activity/Vol]106 U/C13-890ImquiphwlMercy Health St. Elizabeth Boardman HospitalLeukocytes [#/volume] in Blood by Automated countOrdered By: Rose Ohara on 30-63-1944XHD (Bld) [#/Vol] 6.9 10*3/uL4.5-11.0[facility] HospitalLymphocytes Auto (Bld) [#/Vol]Ordered By: Rose Ohara on 05-86-5645Olovmsfzsmt (Bld) [#/Vol]1.5 10*3/uL 1.00-4.8[facility] HospitalLymphocytes/100 WBC Auto (Bld)Ordered By: Rose Ohara on 11-34-5930Onmdcgmdlrc/100 WBC (Bld)21.6 %.[facility] Auto (RBC) [Entitic mass]Ordered By: Rose Ohara on 09-22-2022 MCH (RBC) [Entitic mass]29.0 pg24.7-34.3FDetwiler Memorial HospitalMCHC Auto (RBC) [Mass/Vol]Ordered By: Rose Ohara on 88-17-8065XALA (RBC) [Mass/Vol] 32.2 g/dL32.0-35.0[facility] HospitalMCV Auto (RBC) [Entitic vol] Ordered By: Rose Ohara on 41-03-8127NPF (RBC) [Entitic vol]90.2 sD14-287EkshqbajaMercy Health St. Elizabeth Boardman HospitalMonocytes Auto (Bld) [#/Vol]Ordered By: Rose Ohara on 77-15-5715Aitfusciy (Bld) [#/Vol]0.7 10*3/uL0.0-0.8[facility] HospitalMonocytes/100 WBC Auto (Bld)Ordered By: Rose Ohara on 09-22-2022 Monocytes/100 WBC (Bld)9.7 %.[facility] HospitalNeutrophils Auto (Bld) [#/Vol]Ordered By: Rose Ohara on 95-63-8022Ypwrudeizbq (Bld) [#/Vol]4.5 10*3/uL1.8-7.7FDetwiler Memorial HospitalNeutrophils/100 WBC Auto (Bld) Ordered By: Rose Ohara on 71-92-0554Jpvecjdgeyv/100 WBC (Bld)65.7 %.[facility] HospitalNo Panel InformationOrdered By: Rose Ohara on 09-22-2022 Estimated GFR ()> 60 mL/MinMercy Health St. [facility] Comment on above:GFR estimated reference range: According to KDOQI guidelines, <60 ml/min/1.73m2 is sufficient todiagnose a patient with chronic kidney disease.Pharmacy Creatinine Clearance (Chem70.04[facility] HospitalPlatelet mean volume Auto (Bld) [Entitic vol]Ordered By: Rose Ohara on 06-93-6028Pscenjpz mean volume (Bld) [Entitic vol]8.0 fL6.3-10.7FDetwiler Memorial HospitalPlatelets Auto (Bld) [#/Vol]Ordered By: Rose Ohara on 33-25-3969Lmyhhpzmz (Bld) [#/Vol]227 10*3/dB977-272IipetgmdeMercy Health St. Elizabeth Boardman HospitalProtein [Mass/volume] in Serum or PlasmaOrdered By: Rose Ohara on 12-52-9064Cdeyjmx [Mass/Vol]6.5 g/dL6.1-7.9[facility] HospitalRBC Auto (Bld) [#/Vol]Ordered By: Rose Ohara on 89-59-2379KZT (Bld) [#/Vol]4.79 10*6/uL3.60-5.00WVUMedicine [facility] Hospitalerum or plasma alanine aminotransferase measurement without P-5'-P (enzymatic activiOrdered By: Rose Ohara on 57-54-9777LAO No additional P-5'-P [Catalytic activity/Vol]16 U/L10-60 [facility] Hospitalerum or plasma albumin/globulin mass ratio Ordered By: Rose Ohara on 19-85-1143Ahzthkh/Globulin [Mass ratio]1.3 {ratio} [facility] Hospitalerum or plasma alkaline phosphatase measurement (enzymatic activity/volume)Ordered By: Rose Ohara on 22-46-4123UQO [Catalytic activity/Vol]45 U/G80-40AopnqkncaWVUMedicine Barnesville Hospitalerum or plasma anion gap determinationOrdered By: Rose Ohara on 76-84-4665Waloy gap [Moles/Vol]11.0 mmol/L6.0-15.0WV[facility] Hospitalerum or plasma aspartate aminotransferase measurement (enzymatic activity/volume)Ordered By: Rose Ohara on 92-89-6544TAR [Catalytic activity/Vol]17 U/H02-09JoxbngqblWVUMedicine Barnesville Hospitalerum or plasma calcium measurement (mass/volume)Ordered By: Rose Ohara on 38-76-9445Rqncdji [Mass/Vol]9.2 mg/dL8.2-10.2FSalem City Hospitalerum or plasma chloride measurement (moles/volume)Ordered By: Rose Ohara on 63-02-5220Udjbjtxm [Moles/Vol]99 mmol/V44-774AmwiimwfrWVUMedicine Barnesville Hospitalerum or plasma glucose measurement (mass/volume)Ordered By: Rose Ohara on 84-23-3353Frtrmuc [Mass/Vol]113 mg/eC96-168HbvhopnefMercy Health St. [facility] Comment on above:ADA recommended reference rangeRandom Glucose Reference Range is dependent on time and content of last meal. Glucose of more than 200 mg/dL in a nonstressed, ambulatory subject supports the diagnosisof Diabetes Mellitus. Serum or plasma potassium measurement (moles/volume)Ordered By: Rose Ohara on 44-05-2062Zyuimtnba [Moles/Vol]4.3 mmol/L3.5-5.1FSalem City Hospitalerum or plasma sodium measurement (moles/volume)Ordered By: Rose Ohara on 85-33-2211Cjrvzf [Moles/Vol]135 mmol/Q004-647TzctaaaxxMercy Health St. [facility] Hospital Serum or plasma total bilirubin measurement (mass/volume)Ordered By: Rose Ohara on 37-96-6011Oisertigq [Mass/Vol]1.2 mg/dL0.3-1.2FSalem City Hospitalerum or plasma total carbon dioxide measurement (moles/volume)Ordered By: Rose Ohara on 32-90-5733ME1 [Moles/Vol]29.3 mmol/L22.0-30.0WVUM[facility] Hospitalerum or plasma urea nitrogen measurement (mass/volume)Ordered By: Rose Ohara on 71-14-1394Owcw nitrogen [Mass/Vol]16 mg/dL9-23[facility] HospitalGLYCOHEMOGLOBIN A1Con 58-85-6538GNJ RECOMMENDATIONSEE BELOWSalem City HospitalComcorewell health butterworth hospital on above:Result Comment: ADA RECOMMENDED LIMIT 4.0 - 6.0 ADA THERAPEUTIC TARGET < 7.0 ACTION SUGGESTED > 7.0Performed By: #### A1C #### [facility] [address] [address] [address] Claudia BranchGlucose [Mass/Vol]169 mg/dLNoGrand Lake Joint Township District Memorial HospitalComment on above:Performed By: #### A1C #### [facility] [address] [address] [address] Claudia BranchHbA1c (Bld) [Mass fraction]7.5 %Critically high4.5-6.2[facility] - AkronComment on above:Performed By: #### A1C #### [facility] [address] [place] [address] Dr. Claudia BranchLIPID PROFILEon 81-08-3124ZMZN-HDL RATIO NORMSEE [facility] HospitalComcorewell health butterworth hospital on above:Result Comment: 3.3 - 4.4 LOW RISK 4.4 - 7.1 AVERAGE RISK 7.1 - 11.0 MODERATE RISK >11.0 HIGH RISKPerformed By: #### LIPID, CMP #### [facility] [address] [place] [address] Dr. Claudia BranchCholesterol [Mass/Vol]99 mg/dLNormal<=200The [facility] Comment on above:Performed By: #### LIPID, CMP #### [facility] [address] [place] [address] Dr. Claudia BranchCholesterol in HDL [Mass/Vol]45 mg/xJVxhnvg68-67Ujg St[facility] HospitalComcorewell health butterworth hospital on above:Performed By: #### LIPID, CMP #### [facility] [address] [place] [address] Dr. Claudia BranchCholesterol in LDL [Mass/Vol]22.6 mg/dLUniversity Hospitals Beachwood Medical CenterComcorewell health butterworth hospital on above:Performed By: #### LIPID, CMP #### [facility] [address] [address] [address] Claudia BranchCholesterol.total/Cholesterol in HDL [Mass ratio]2.2 {ratio} NormalThe [facility] on above:Performed By: #### LIPID, CMP #### [facility] [address] [place] [address] Dr. Claudia Hines NORMAL> or = 60 mg/dl - LOW CARDIOVASCULAR RISK <40 mg/dl - HIGH CARDIOVASCULAR RISKUniversity Hospitals Beachwood Medical CenterComcorewell health butterworth hospital on above:Performed By: #### LIPID, CMP #### [facility] [address] [place] [address] Dr. Claudia BranchLDL CALC NORMALSEE BELOWUniversity Hospitals Beachwood Medical CenterComcorewell health butterworth hospital on above:Result Comment: <100 mg/dl OPTIMAL 100 - 129 mg/dl NEAR OR ABOVE OPTIMAL 130 - 159 mg/dl BORDERLINE HIGH 160 - 189 mg/dl HIGH >190 mg/dl VERY HIGH Performed By: #### LIPID, CMP #### [facility] [address] [place] [address] Dr. Claudia BranchTriglyceride [Mass/Vol]157 mg/dLCritically high<=150The [facility] on above:Performed By: #### LIPID, CMP #### [facility] [address] [place] [address] Dr. Claudia BranchVLDL CALC31.4 mg/dLNoRegency Hospital Cleveland East on above: Performed By: #### LIPID, CMP #### [facility] [address] [place] [address] Dr. Claudia BranchPROF 14(COMP METB)on 52-47-6287Qlecyvi [Mass/Vol]3.9 g/dLNormal 3.4-5.0The [facility] Charles HospitalComcorewell health butterworth hospital on above:Performed By: #### LIPID, CMP #### [facility] [address] [place] [address] Dr. Claudia BranchAlbumin/Globulin [Mass ratio]1.0 {ratio}NormalThe St. Charles HospitalComcorewell health butterworth hospital on above:Performed By: #### LIPID, CMP #### [facility] [address] [address] [address] Claudia DixonP [Catalytic activity/Vol]57 U/LExjckj31-970Ayv St. Charles HospitalComment on above:Performed By: #### LIPID, CMP #### [facility] [address] [address] [address] Claudia DixonT [Catalytic activity/Vol]22 U/EDdzybi83-50Bfy St. Charles HospitalComment on above:Performed By: #### LIPID, CMP #### [facility] [address] [address] [address] Claudia Rhodeson gap [Moles/Vol]10.7 mmol/LNormalSelect Medical [facility] Comment on above:Performed By: #### LIPID, CMP #### [facility] [address] [address] [address] Claudia BranchAST [Catalytic activity/Vol]11 U/LCritically nne28-06Nzx [facility]. [facility] HospitalComment on above:Performed By: #### LIPID, CMP #### [facility] [address] [address] [address] Claudia BranchBilirubin [Mass/Vol]1.4 mg/dLCritically high0.2-1.0The [facility] Charles HospitalComment on above:Performed By: #### LIPID, CMP #### [facility] [address] [address] [address] Claudia BranchCalcium [Mass/Vol]9.3 mg/dLNormal8.5-10.1[facility] Comment on above:Performed By: #### LIPID, CMP #### [facility] [address] [address] [address] Claudia BranchChloride [Moles/Vol]103 mmol/CQzkahs02-728Rrq [facility] Comment on above:Performed By: #### LIPID, CMP #### [facility] [address] [address] [address] Claudia BranchCO2 [Moles/Vol]31.2 mmol/GTgyfew48.0-32.0The [facility] Comment on above:Performed By: #### LIPID, CMP #### [facility] [address] [address] [address] Claudia BranchCreatinine [Mass/Vol]0.83 mg/dLNormal0.55-1.02The Madison Healthment on above:Performed By: #### LIPID, CMP #### [facility] [address] [address] [address] Claudia KnoxGFR-AF SAUDI ARABIAN>60Normal>=60The St. Charles HospitalComment on above:Performed By: #### LIPID, CMP #### [facility] [address] [address] [address] Claudia KnoxGFR-NON AF SAUDI ARABIAN>60Normal>=60The [facility] Healthment on above:Performed By: #### LIPID, CMP #### [facility] [address] [address] [address] Claudia BranchGlobulin (S) [Mass/Vol]3.6 g/dLNormalThe St. Charles HospitalComment on above:Performed By: #### LIPID, CMP #### [facility] [address] [address] [address] Claudia BranchGlucose [Mass/Vol]114 mg/dLCritically dqfl98-449Pgl Madison Healthment on above:Performed By: #### LIPID, CMP #### [facility] [address] [address] [address] Claudia BranchPotassium [Moles/Vol]4.4 mmol/LNormal3.5-5.1The [facility] Comment on above:Performed By: #### LIPID, CMP #### [facility] [address] [address] [address] Claudia BranchProtein [Mass/Vol]7.5 g/dLNormal6.4-8.2The [facility] Comment on above:Performed By: #### LIPID, CMP #### [facility] [address] [address] [address] Claudia BranchSodium [Moles/Vol]141 mmol/ZNexqrl215-792Xax [facility] Comment on above:Performed By: #### LIPID, CMP #### [facility] [address] [address] [address] Claudia Panchal nitrogen [Mass/Vol]20.0 mg/dLCritically high7.0-18.0The [facility] HospitalComment on above:Performed By: #### LIPID, CMP #### [facility] [address] [address] [address] Claudia Panchal nitrogen/Creatinine [Mass ratio]24.0 mg/mgNormalThe St. Charles HospitalComment on above:Performed By: #### LIPID, CMP #### [facility] [address] [address] [address] Claudia Zavaleta PANEL (PCR)on 68-47-8796Orojcttubb F 40/41Not detectedNormal NOT DETECTEDThe St. Charles HospitalComment on above:Performed By: #### GIPANEL #### [facility] [address] [address] [address] Claudia BranchAstrovirusNot detectedNormalNOT DETECTEDThe [facility] Comment on above:Performed By: #### GIPANEL #### [facility] [address] [address] [address] Claudia Rodriguez. Diff toxin A/BDetectedCritically abnormalNOT DETECTEDThe St. Charles HospitalComment on above:Performed By: #### GIPANEL #### [facility] [address] [address] [address] Claudia OlivaspylobacterNot detectedNormalNOT DETECTEDThe [facility] Comment on above:Performed By: #### GIPANEL #### [facility] [address] [address] [address] Claudia BranchCryptosporidiumNot detectedNormalNOT DETECTEDThe St. Charles HospitalComment on above:Performed By: #### GIPANEL #### [facility] [address] [address] [address] Claudia Richardsos. CayetanensisNot detectedNormalNOT DETECTEDThe St. [facility] HospitalComment on above:Performed By: #### GIPANEL #### [facility] [address] [address] [address] Claudia Santos Coli C615Fka ApplicableNormalNot ApplicableThe St. [facility] HospitalComcorewell health butterworth hospital on above:Performed By: #### GIPANEL #### [facility] [address] [address] [address] Claudia Knox. histolyticaNot detectedNormalNOT DETECTEDThe [facility] Comment on above:Performed By: #### GIPANEL #### [facility] [address] [address] [address] Claudia KnoxAECNot detectedNormalNOT DETECTEDThe St. [facility] HospitalComment on above:Performed By: #### GIPANEL #### [facility] [address] [address] [address] Claudia KnoxIECNot detectedNormalNOT DETECTEDThe St. [facility] HospitalComment on above:Performed By: #### GIPANEL #### [facility] [address] [address] [address] Claudia KnoxPECNot detectedNormalNOT DETECTEDThe St. [facility] HospitalComment on above:Performed By: #### GIPANEL #### [facility] [address] [address] [address] Claudia KnoxTECNjan detectedNormalNOT DETECTEDThe St. [facility] HospitalComcorewell health butterworth hospital on above:Performed By: #### GIPANEL #### [facility] [address] [address] [address] Claudia Carranza. LambliaNot detectedNormalNOT DETECTEDThe [facility] Comment on above:Performed By: #### GIPANEL #### [facility] [address] [address] [address] Claudia Batista CONTROLSPASSEDUniversity Hospitals Beachwood Medical CenterComment on above:Performed By: #### GIPANEL #### [facility] [address] [address] [address] Claudia Mendez DIEUDONNE HEADERGI PANEL BACTERIAUniversity Hospitals Beachwood Medical Center Comment on above:Performed By: #### GIPANEL #### [facility] [address] [address] [address] Claudia Quevedo ECOLIGI PANEL DIARRHEAGENIC E.COLI / SHIGELLAUniversity Hospitals Beachwood Medical CenterComment on above:Performed By: #### GILDAANEL #### [facility] [address] [address] [address] Claudia Quevedo INFOSEE [facility] HospitalComment on above: Result Comment: EAEC- Enteroaggregative E. Coli EPEC- Enteropathogenic E. Coli ETEC- Enterotoxigenic E. Coli lt/st STEC- Shigella-like toxin-producing E. Coli stx1/stx2 EIEC- Shigella/Enteroinvasive E. ColiPerformed By: #### GILDAANEL #### [facility] [address] [address] [address] Claudia Quevedo PARASITESGI PANEL PARASITESUniversity Hospitals Beachwood Medical Center Comment on above:Performed By: #### GILDAANEL #### [facility] [address] [address] [address] Claudia Quevedo VIRUSGI PANEL VIRUSESUniversity Hospitals Beachwood Medical CenterComment on above:Performed By: #### GILDAANEL #### [facility] [address] [address] [address] Claudia Ferrerrovirus GI/GIINot detectedNormalNOT DETECTEDThe St. [facility] HospitalComment on above:Performed By: #### GILDAANEL #### [facility] [address] [address] [address] Claudia Jasso ShigelloidesNot detectedNormalNOT DETECTEDThe St. [facility] HospitalComment on above:Performed By: #### GIPANEL #### [facility] [address] [address] [address] Claudia BranchRotavirus ANot detectedNormalNOT DETECTEDThe [facility] Comment on above:Performed By: #### GIPANEL #### [facility] [address] [address] [address] Claudia BranchSalmonellaNot detectedNormalNOT DETECTEDThe [facility] Comment on above:Performed By: #### GIPANEL #### [facility] [address] [address] [address] Claudia BranchSapovirusNot detectedNormalNOT DETECTEDThe [facility] Comment on above:Performed By: #### GIPANEL #### [facility] [address] [address] [address] Claudia BranchSTECNot detectedNormalNOT DETECTEDThe St. [facility] HospitalComment on above:Performed By: #### GIPANEL #### [facility] [address] [address] [address] Claudia CampbellioNot detectedNormalNOT DETECTEDThe St. [facility] HospitalComment on above:Performed By: #### GIPANEL #### [facility] [address] [address] [address] Claudia Campbellio CholeraNot detectedNormalNOT DETECTEDThe [facility] Comment on above:Performed By: #### GIPANEL #### [facility] [address] [address] [address] Claudia Curiel. EnterocoliticaNot detectedNormalNOT DETECTEDThe St. [facility] HospitalComment on above:Performed By: #### GIPANEL #### [facility] [address] [address] [address] Claudia BranchAlbumin [Mass/volume] in Serum or PlasmaOrdered By: Rose Ohara on 22-52-3500Kuoymlr [Mass/Vol]4.1 g/dL3.2-5.5FDetwiler Memorial Hospital Basophils Auto (Bld) [#/Vol]Ordered By: Rose Ohara on 50-77-3633Gcoqnyzbu (Bld) [#/Vol]0.1 10*3/uL0.0-0.2FDetwiler Memorial HospitalBasophils/100 WBC Auto (Bld)Ordered By: Rose Ohara on 78-38-2705Zdcbxegbh/100 WBC (Bld)1.2 %.[facility] HospitalBlood hemoglobin measurement (mass/volume)Ordered By: Rose Ohara on 70-23-5067Bixtszloms (Bld) [Mass/Vol]15.0 g/dL11.8-15.4FDetwiler Memorial HospitalBlood leukocytes automated count (number/volume)Ordered By: Rose Ohara on 07-77-2970RXW (Bld) [#/Vol]8.4 10*3/uL4.5-11.0[facility] HospitalCreatinine and Glomerular filtration rate.predicted panel (S/P/Bld)Ordered By: Rose Ohara on 59-07-4149Mipqbrxvqo [Mass/Vol]0.87 mg/dL 0.44-1.03[facility] HospitalEosinophils Auto (Bld) [#/Vol]Ordered By: Rose Ohara on 76-56-9256Vxeevvpfanh (Bld) [#/Vol]0.3 10*3/uL0.0-0.45[facility] HospitalEosinophils/100 WBC Auto (Bld)Ordered By: Rose Ohara on 48-86-4168Qldnhdmwyry/100 WBC (Bld)3.7 %.[facility] Erythrocyte distribution width Auto (RBC) [Ratio]Ordered By: Rose Ohara on 68-07-8037Pdonsrpxudo distribution width (RBC) [Ratio]14.9 %11.9-15.3FDetwiler Memorial HospitalEstimated glomerular filtration rate (GFR) non- AmericanOrdered By: Rose Ohara on 75-45-8674XFW/1.73 sq M.predicted among non- blacks MDRD (S/P/Bld) [Vol rate/Area]> 60 mL/MinMercy Health St. Elizabeth Boardman HospitalGlobulin Calc (S) [Mass/Vol]Ordered By: Rose Ohara on 68-76-2365Vzidcxip (S) [Mass/Vol]3.0 g/dLMercy Health St. Elizabeth Boardman HospitalHematocrit Auto (Bld) [Volume fraction]Ordered By: Rose Ohara on 35-49-4250Auglsgsrbf (Bld) [Volume fraction]45.9 %34.0-46.4FDetwiler Memorial HospitalLaboratory - Hematology and Cell countsOrdered By: Rose Ohara on 18-70-5577Ejwbmougu RBC/100 WBC (Bld) [Ratio]0.1 %0-0.5FDetwiler Memorial HospitalLactate dehydrogenase measurement (enzymatic activity/volume)Ordered By: Rose Ohara on 38-08-1190QWI (Unsp spec) [Catalytic activity/Vol]131 U/Q76-028PlvqlrnoiMercy Health St. Elizabeth Boardman HospitalLymphocytes Auto (Bld) [#/Vol]Ordered By: Rose Ohara on 06-29-2022 Lymphocytes (Bld) [#/Vol]1.6 10*3/uL1.00-4.8[facility] Lymphocytes/100 WBC Auto (Bld)Ordered By: Rose Ohara on 06-84-3649Lfijevgrjqp/100 WBC (Bld)18.8 %.[facility] Auto (RBC) [Entitic mass] Ordered By: Rose Ohara on 78-42-5829VNW (RBC) [Entitic mass]29.8 pg24.7-34.3 [facility] HospitalHC Auto (RBC) [Mass/Vol]Ordered By: Rose Ohara on 29-62-3592CISB (RBC) [Mass/Vol]32.8 g/dL32.0-35.0[facility] HospitalMCV Auto (RBC) [Entitic vol]Ordered By: Rose Ohara on 33-95-8236HFK (RBC) [Entitic vol]91.0 rA03-186TpulnkmfrMercy Health St. Elizabeth Boardman HospitalMonocytes Auto (Bld) [#/Vol]Ordered By: Rose Ohara on 61-98-2297Hrcshgyvc (Bld) [#/Vol]0.8 10*3/uL 0.0-0.8[facility] HospitalMonocytes/100 WBC Auto (Bld)Ordered By: Rose Ohara on 46-42-7724Pkzfyxfrk/100 WBC (Bld)9.5 %.[facility] HospitalNeutrophils Auto (Bld) [#/Vol]Ordered By: Rose Ohara on 06-29-2022 Neutrophils (Bld) [#/Vol]5.6 10*3/uL1.8-7.7FDetwiler Memorial Hospital Neutrophils/100 WBC Auto (Bld)Ordered By: Rose Ohara on 34-48-3444Qkghbczgzyf/100 WBC (Bld)66.8 %.[facility] HospitalNo Panel InformationOrdered By: Rose Ohara on 26-98-5232Btjwkcggb GFR ()> 60 mL/MinMercy Health St. Elizabeth Boardman HospitalComment on above:GFR estimated reference range: According to KDOQI guidelines, <60 ml/min/1.73m2 is sufficient todiagnose a patient with chronic kidney disease.Pharmacy Creatinine Clearance (Chem64.07[facility] HospitalPlatelet mean volume Auto (Bld) [Entitic vol]Ordered By: Rose Ohara on 79-23-2854Datbiwjo mean volume (Bld) [Entitic vol]7.9 fL6.3-10.[address] [facility] HospitalPlatelets Auto (Bld) [#/Vol]Ordered By: Rose Ohara on 95-89-9782Sgqisjjof (Bld) [#/Vol]226 10*3/oE320-105PvilcumdmMercy Health [address] [facility] HospitalProtein [Mass/volume] in Serum or PlasmaOrdered By: Rose Ohara on 73-14-5494Kqrefld [Mass/Vol]7.1 g/dL6.1-7.9[facility] HospitalRBC Auto (Bld) [#/Vol]Ordered By: Rose Ohara on 35-27-1074QTN (Bld) [#/Vol]5.04 10*6/uL3.60-5.00[facility] Hospitalerum or plasma alanine aminotransferase measurement without P-5'-P (enzymatic activiOrdered By: Rose Ohara on 33-70-6114KUS No additional P-5'-P [Catalytic activity/Vol]27 U/L10-60 [facility] Hospitalerum or plasma albumin/globulin mass ratio Ordered By: Rose Ohara on 61-20-5252Arbkpob/Globulin [Mass ratio]1.4 {ratio} [facility] Hospitalerum or plasma alkaline phosphatase measurement (enzymatic activity/volume)Ordered By: Rose Ohara on 91-60-3047NGS [Catalytic activity/Vol]56 U/O70-97ZbkstivfuWVUMedicine Barnesville Hospitalerum or plasma aspartate aminotransferase measurement (enzymatic activity/volume)Ordered By: Rose Ohara on 92-43-0221LWI [Catalytic activity/Vol]26 U/A35-46LbvedzictWVUMedicine Barnesville Hospitalerum or plasma calcium measurement (mass/volume)Ordered By: Rose Ohara on 03-08-1207Jsmjahx [Mass/Vol]10.2 mg/dL8.2-10.2FSalem City Hospitalerum or plasma chloride measurement (moles/volume) Ordered By: Rose Ohara on 66-37-2317Bwirzfzl [Moles/Vol]102 mmol/H58-900AmzjmfvzeWVUMedicine Barnesville Hospitalerum or plasma glucose measurement (mass/volume)Ordered By: Rose Ohara on 47-70-1569Exywcfs [Mass/Vol]130 mg/tM18-409WetubyhetMercy Health St. Elizabeth Boardman HospitalComment on above:ADA recommended reference range Random Glucose Reference Range is dependent on time and content of last meal. Glucose of more than 200 mg/dL in a nonstressed, ambulatory subject supports the diagnosis of Diabetes Mellitus.Serum or plasma potassium measurement (moles/volume)Ordered By: Rose Ohara on 32-40-8618Wzebegpvx [Moles/Vol]4.9 mmol/L 3.5-5.1FSalem City Hospitalerum or plasma sodium measurement (moles/volume)Ordered By: Rose Ohara on 76-94-4553Muawyz [Moles/Vol]139 mmol/L 136-146[facility] Hospitalerum or plasma total bilirubin measurement (mass/volume)Ordered By: Rose Ohara on 79-26-6415Tlmswoaze [Mass/Vol] 1.2 mg/dL0.3-1.2FSalem City Hospitalerum or plasma total carbon dioxide measurement (moles/volume)Ordered By: Rose Ohara on 03-69-2576UR3 [Moles/Vol]24.6 mmol/L22.0-30.0[facility] Hospitalerum or plasma urea nitrogen measurement (mass/volume)Ordered By: Rose Ohara on 32-57-9223Uwvb nitrogen [Mass/Vol]21 mg/dL9-23[facility] HospitalBNPon 04-29-2022 Natriuretic peptide B (Bld) [Mass/Vol]280.0 pg/mLNormal<=900.0The [facility]. Charles HospitalComment on above:Performed By: #### BNP, BMP #### [facility] [address] [address] [address] Claudia BranchPROMayra CHEM 8 (BAS METB)on 80-95-1426Mtati gap [Moles/Vol]17.9 mmol/LNormalThe St. Charles HospitalComment on above:Performed By: #### BNP, BMP #### [facility] [address] [address] [address] Claudia BranchCalcium [Mass/Vol]8.9 mg/dLNormal8.5-10.1[facility] Comment on above:Performed By: #### BNP, BMP #### [facility] [address] [address] [address] Claudia BranchChloride [Moles/Vol]104 mmol/CDfgrsq67-216[facility] Comment on above:Performed By: #### BNP, BMP #### [facility] [address] [place] [address] Dr. Claudia BranchCO2 [Moles/Vol]23.2 mmol/ZMgtacc75.0-32.0[facility] Comment on above:Performed By: #### BNP, BMP #### [facility] [address] [place] [address] Dr. Claudia BranchCreatinine [Mass/Vol]1.04 mg/dLCritically high0.55-1.02The [facility]. Charles HospitalComment on above:Performed By: #### BNP, BMP #### [facility] [address] [place] [address] Dr. Claudia KnoxGFR-AF SAUDI ARABIAN>60Normal>=60The St. Charles HospitalComment on above:Performed By: #### BNP, BMP #### [facility] [address] [place] [address] Dr. Claudia KnoxGFR-NON AF YDUREAXX52 mL/min/1.61t0Whbbzgmchf low>=60The [facility] HospitalComment on above:Performed By: #### BNP, BMP #### [facility] [address] [place] [address] Dr. Claudia BranchGlucose [Mass/Vol]254 mg/dLCritically fpdg40-068Asy St. Charles HospitalComment on above:Performed By: #### BNP, BMP #### [facility] [address] [place] [address] Dr. Claudia BranchPotassium [Moles/Vol]5.1 mmol/LNormal3.5-5.1[facility] Comment on above:Performed By: #### BNP, BMP #### [facility] [address] [place] [address] Dr. Claudia Veladium [Moles/Vol]140 mmol/AAkyvwz084-157Nfy [facility] Comment on above:Performed By: #### BNP, BMP #### [facility] [address] [place] [address] Dr. Claudia Panchal nitrogen [Mass/Vol]25.0 mg/dLCritically high7.0-18.0[facility] - AkronComment on above:Performed By: #### BNP, BMP #### [facility] [address] [place] [address] Dr. Claudia Panchal nitrogen/Creatinine [Mass ratio]24.0 mg/mgNormalThe St. Charles HospitalComment on above:Performed By: #### BNP, BMP #### [facility] [address] [place] [address] Dr. Claudia Marx METABOLIC PANELon 58-96-4299Hdldeem [Mass/Vol]9.7 mg/dL Normal8.6-10.4Quest DiagnosticsComment on above:Performed By: #### 899, 45756 #### [facility] [address] [address] Proposal Engineer: Baldemar Jones MDChloride [Moles/Vol]106 mmol/WMoptnz76-857 [facility] DiagnosticsComment on above:Performed By: #### 899, 15627 #### [facility] [address] [address] Proposal Engineer: Baldemar Jones MDCO2 [Moles/Vol]24 mmol/LTzkhig22-09Khtvu DiagnosticsComment on above:Performed By: #### 899, 92278 #### [facility] [address] [address] Proposal Engineer: Baldemar Jones MDCreatinine [Mass/Vol]1.32 mg/dLHigh0.60-0.93 [facility] DiagnosticsComment on above:Result Comment: For patients >49 years of age, the reference limit for Creatinine is approximately 13% higher for people identified as -Citizen Of [place].Performed By: #### 899, 93238 #### [facility] [address], [address] [place] [address] Proposal Engineer: Baldemar Jones MDeGFR NON-AFR. UXKFPFXM94 mL/min/1.04b1Ugt> OR = 60Quest DiagnosticsComment on above:Performed By: #### 899, 28203 #### [facility] [address], [address] [place] [address] Proposal Engineer: Baldemar Jones MDGFR/1.73 sq M.predicted among blacks MDRD (S/P/Bld) [Vol rate/Area]47 mL/min/{1.73_m2}Low> OR = 60Quest DiagnosticsComment on above:Performed By: #### 899, 17594 #### [facility] [address], [address] [place] [address] Proposal Engineer: Baldemar Jones MDGlucose [Mass/Vol]99 mg/xNNkyeho23-29Yeilk DiagnosticsComment on above:Result Comment: Fasting reference intervalPerformed By: #### 899, 00631 #### [facility] [address], [address] [place] [address] Proposal Engineer: Baldemar Jones MDPotassium [Moles/Vol]4.6 mmol/LNormal3.5-5.3 [facility] DiagnosticsComment on above:Performed By: #### 899, 17948 #### [facility] [address], [address] [place] [address] Proposal Engineer: Baldemar Jones MDSodium [Moles/Vol]143 mmol/LXkdvqv058-508Ikatn DiagnosticsComment on above:Performed By: #### 899, 93509 #### [facility] [address], [address] [place] [address] Proposal Engineer: Baldemar Vicente nitrogen [Mass/Vol]30 mg/dLHigh7-25Quest DiagnosticsComment on above:Performed By: #### 899, 87738 #### [facility] [address], [address] [place] [address] Proposal Engineer: Baldemar Vicente nitrogen/Creatinine [Mass ratio]23 mg/mg High6-22Quest DiagnosticsComment on above:Performed By: #### 899, 60761 #### [facility] [address], [address] [place] [address] Proposal Engineer: Baldemar Jones MDTSHon 30-98-0264XYN Qn0.67 m[IU]/LNormal 0.40-4.50Quest DiagnosticsComment on above:Performed By: #### 899, 77276 #### [facility] [address], [address] [place] [address] Proposal Engineer: Baldemar Jones MDAlbumin [Mass/volume] in Serum or Plasma Ordered By: Rose Ohara on 83-42-8850Tuxurnp [Mass/Vol]3.8 g/dL3.2-5.5FDetwiler Memorial HospitalBasophils Auto (Bld) [#/Vol]Ordered By: Rose Ohara on 71-11-2777Xnfmaplfk (Bld) [#/Vol]0.1 10*3/uL0.0-0.2FDetwiler Memorial HospitalBasophils/100 WBC Auto (Bld)Ordered By: Rose Ohara on 03-25-2022 Basophils/100 WBC (Bld)1.1 %[facility] HospitalBlood hemoglobin measurement (mass/volume)Ordered By: Rose Ohara on 61-47-0098Xyemjaivmh (Bld) [Mass/Vol]14.2 g/dL11.8-15.4FDetwiler Memorial HospitalBlood leukocytes automated count (number/volume)Ordered By: Rose Ohara on 82-73-3359TII (Bld) [#/Vol]7.4 10*3/uL4.5-11.0[facility] HospitalCreatinine and Glomerular filtration rate.predicted panel (S/P/Bld)Ordered By: Rose Ohara on 89-37-7309Dvsxkmigqz [Mass/Vol]1.40 mg/dL0.44-1.03[facility] HospitalEosinophils Auto (Bld) [#/Vol]Ordered By: Rose Ohara on 03-25-2022 Eosinophils (Bld) [#/Vol]0.2 10*3/uL0.0-0.45[facility] Eosinophils/100 WBC Auto (Bld)Ordered By: Rose Ohara on 40-58-8673Dsorznhehzp/100 WBC (Bld)2.6 %[facility] HospitalErythrocyte distribution width Auto (RBC) [Ratio]Ordered By: Rose Ohara on 24-85-5999Xuhsmldbcfy distribution width (RBC) [Ratio]15.1 %11.9-15.3FDetwiler Memorial HospitalEstimated glomerular filtration rate (GFR) non- AmericanOrdered By: Rose Ohara on 60-17-2104JII/1.73 sq M.predicted among non-blacks MDRD (S/P/Bld) [Vol rate/Area]37 mL/MinMercy Health St. Elizabeth Board[facility] HospitalGlobulin Calc (S) [Mass/Vol] Ordered By: Rose Ohara on 50-85-5119Lakpciwr (S) [Mass/Vol]2.5 g/dLMercy Health St. Elizabeth Board[facility] HospitalHematocrit Auto (Bld) [Volume fraction]Ordered By: Rose Ohara on 07-11-3515Szmkvlyhlb (Bld) [Volume fraction]43.3 %34.0-46.4FDetwiler Memorial HospitalLaboratory - Hematology and Cell countsOrdered By: Rose Ohara on 29-51-6603Tenyxxlwd RBC/100 WBC (Bld) [Ratio]0.1 %0-0.5FDetwiler Memorial HospitalLactate dehydrogenase measurement (enzymatic activity/volume)Ordered By: Rose Ohara on 35-15-5916SOL (Unsp spec) [Catalytic activity/Vol]111 U/N22-884GigdhhjvlMercy Health St. Elizabeth Board[facility] HospitalLymphocytes Auto (Bld) [#/Vol]Ordered By: Rose Ohaar on 42-67-5449Gwyugovbord (Bld) [#/Vol]1.7 10*3/uL1.00-4.8[facility] HospitalLymphocytes/100 WBC Auto (Bld) Ordered By: Rose Ohara on 46-64-3197Zttkumczmre/100 WBC (Bld)22.3 %[facility] HospitalH Auto (RBC) [Entitic mass]Ordered By: Rose Ohara on 14-76-6849IOQ (RBC) [Entitic mass]29.0 pg24.7-34.3FDetwiler Memorial HospitalMCHC Auto (RBC) [Mass/Vol]Ordered By: Rose Ohara on 19-10-5471JBLS (RBC) [Mass/Vol]32.8 g/dL32.0-35.0[facility] HospitalMCV Auto (RBC) [Entitic vol]Ordered By: Rose Ohara on 91-19-8941MQW (RBC) [Entitic vol]88.3 fL 80-100[facility] HospitalMonocytes Auto (Bld) [#/Vol]Ordered By: Rose Ohara on 68-47-5711Jqfhdfhqe (Bld) [#/Vol]0.7 10*3/uL0.0-0.8[facility] HospitalMonocytes/100 WBC Auto (Bld)Ordered By: Rose Ohara on 49-05-9773Fdccirrsp/100 WBC (Bld)9.5 %[facility] Neutrophils Auto (Bld) [#/Vol]Ordered By: Rose Ohara on 45-27-0087Xrhmwjcycgv (Bld) [#/Vol]4.8 10*3/uL1.8-7.7FDetwiler Memorial HospitalNeutrophils/100 WBC Auto (Bld)Ordered By: Rose Ohara on 38-89-8352Ifvvmjdseqc/100 WBC (Bld)64.5 % [facility] HospitalNo Panel InformationOrdered By: Rose Ohara on 01-45-3132Psdkhurbe GFR ()45 mL/MinMercy Health St. Elizabeth Boardman HospitalComment on above:GFR estimated reference range: According to KDOQI guidelines, <60 ml/min/1.73m2 is sufficient todiagnose a patient with chronic kidney disease.Pharmacy Creatinine Clearance (Chem39.92[facility] HospitalPlatelet mean volume Auto (Bld) [Entitic vol]Ordered By: Rose Ohara on 03-34-1975Zwkookha mean volume (Bld) [Entitic vol]8.2 fL6.3-10.7FDetwiler Memorial HospitalPlatelets Auto (Bld) [#/Vol]Ordered By: Rose Ohara on 76-97-7271Agbdbhkvg (Bld) [#/Vol]232 10*3/sK538-586GxllixrjsMercy Health St. [facility] HospitalProtein [Mass/volume] in Serum or PlasmaOrdered By: Rose Ohara on 41-16-5793Vopxkqg [Mass/Vol]6.3 g/dL6.1-7.9[facility] HospitalRBC Auto (Bld) [#/Vol]Ordered By: Rose Ohara on 25-51-8779YLZ (Bld) [#/Vol]4.90 10*6/uL3.60-5.00[facility] Hospitalerum or plasma alanine aminotransferase measurement without P-5'-P (enzymatic activiOrdered By: Rose Ohara on 20-76-5449MVR No additional P-5'-P [Catalytic activity/Vol]23 U/L10-60 [facility] Hospitalerum or plasma albumin/globulin mass ratio Ordered By: Rose Ohara on 89-18-2880Cqsdhzm/Globulin [Mass ratio]1.5 {ratio} [facility] Hospitalerum or plasma alkaline phosphatase measurement (enzymatic activity/volume)Ordered By: Rose Ohara on 60-86-9484JRA [Catalytic activity/Vol]43 U/G57-33InaaaszoaWVUMedicine Barnesville Hospitalerum or plasma aspartate aminotransferase measurement (enzymatic activity/volume)Ordered By: Rose Ohara on 67-81-5594XWI [Catalytic activity/Vol]18 U/O06-06ZersdszyjWVUMedicine Barnesville Hospitalerum or plasma calcium measurement (mass/volume)Ordered By: Rose Ohara on 21-08-0344Wggsicq [Mass/Vol]9.7 mg/dL8.2-10.2FSalem City Hospitalerum or plasma chloride measurement (moles/volume)Ordered By: Rose Ohara on 03-45-0976Luvalatm [Moles/Vol]98 mmol/D24-488WbtcyddyzWVUMedicine Barnesville Hospitalerum or plasma glucose measurement (mass/volume)Ordered By: Rose Ohara on 93-68-0796Bfkfbbo [Mass/Vol]201 mg/aD81-866WjlgyfmdsMercy Health St. Elizabeth Board[facility] HospitalComment on above:ADA recommended reference range Random Glucose Reference Range is dependent on time and content of last meal. Glucose of more than 200 mg/dL in a nonstressed, ambulatory subject supports the diagnosis of Diabetes Mellitus.Serum or plasma potassium measurement (moles/volume)Ordered By: Rose Ohara on 11-95-9312Bhkgcwrbi [Moles/Vol]4.7 mmol/L 3.5-5.1FSalem City Hospitalerum or plasma sodium measurement (moles/volume)Ordered By: Rose Ohara on 36-14-2552Qycehh [Moles/Vol]139 mmol/L 136-146WV[facility] Hospitalerum or plasma total bilirubin measurement (mass/volume)Ordered By: Rose Ohara on 24-67-1148Ggykgwnto [Mass/Vol] 1.2 mg/dL0.3-1.2FSalem City Hospitalerum or plasma total carbon dioxide measurement (moles/volume)Ordered By: Rose Ohara on 81-48-1156CN3 [Moles/Vol]27.4 mmol/L22.0-30.0[facility] Hospitalerum or plasma urea nitrogen measurement (mass/volume)Ordered By: Rose Ohara on 25-76-4379Klqj nitrogen [Mass/Vol]29 mg/dL9-23[facility] DL <= 0.005 mIU/L QnOrdered By: Rose Ohara on 53-84-9253YFS Qn0.89 m[IU]/L0.45-5.33[facility] HospitalTS QnSerum or plasma thyroid stimulating hormone (TSH) measurement by high sensitivity met0.45-5.33[facility] BASIC METABOLIC PANELon 11-33-8397TUF/CREATININE RATIONOT APPLICABLENormal04-28 [facility] DiagnosticsComment on above:Order Comment: FASTING:YES FASTING: YESPerformed By: #### 743, 32358 #### [facility] [address], [address] [place] [address] Proposal Engineer: Baldemar Jones MDCalcium [Mass/Vol]9.4 mg/dLNormal8.6-10.4Quest DiagnosticsComment on above:Order Comment: FASTING:YES FASTING: YESPerformed By: #### 496, 16250 #### [facility] [address], [address] [place] [address] Proposal Engineer: Baldemar Jones MDChloride [Moles/Vol]101 mmol/BUaykzb55-715 [facility] DiagnosticsComment on above:Order Comment: FASTING:YES FASTING: YESPerformed By: #### 496, 76264 #### [facility] [address] [place] [address] Proposal Engineer: Baldemar Jones MDCO2 [Moles/Vol]31 mmol/JLseezd40-53Ebnqq DiagnosticsComment on above:Order Comment: FASTING:YES FASTING: YESPerformed By: #### 496, 71377 #### [facility] [address], [address] [place] [address] Proposal Engineer: Baldemar Jones MDCreatinine [Mass/Vol]0.84 mg/dLNormal0.60-0.93 [facility] DiagnosticsComment on above:Order Comment: FASTING:YES FASTING: YESResult Comment: For patients >49 years of age, the reference limit for Creatinine is approximately 13% higher for people identified as -Citizen [place].Performed By: #### 496, 22581 #### [facility] [address], [address] [place] [address] Proposal Engineer: Baldemar Jones MDeGFR NON-AFR. MEPOLJSD29 mL/min/1.64z6Xzwuph> OR = 60Quest DiagnosticsComment on above:Order Comment: FASTING:YES FASTING: YESPerformed By: #### 496, 51080 #### [facility] [address], [address] [place] [address] Proposal Engineer: Baldemar Jones MDGFR/1.73 sq M.predicted among blacks MDRD (S/P/Bld) [Vol rate/Area]80 mL/min/{1.73_m2}Normal> OR = 60[facility] Comment on above:Order Comment: FASTING:YES FASTING: YESPerformed By: #### 496, 59446 #### [facility] [address], [address] [place] [address] Proposal Engineer: Baldemar Jones MDGlucose [Mass/Vol]108 mg/mUJhms41-59Nmqxk DiagnosticsComment on above:Order Comment: FASTING:YES FASTING: YESResult Comment: Fasting reference interval For someone without known diabetes, a glucose value between 100 and 125 mg/dL is consistent with prediabetes and should be confirmed with a follow-up test.Performed By: #### 496, 86713 #### [facility] [address] [place] [address] Proposal Engineer: Baldemar CISSEotassium [Moles/Vol]4.5 mmol/LNormal3.5-5.3 [facility] DiagnosticsComment on above:Order Comment: FASTING:YES FASTING: YESPerformed By: #### 496, 67114 #### [facility] [address], [address] [place] [address] Proposal Engineer: Baldemar Jones MDSodium [Moles/Vol]143 mmol/MLhstxc783-331Jfvje DiagnosticsComment on above:Order Comment: FASTING:YES FASTING: YESPerformed By: #### 496, 37707 #### [facility] [address], [address] [place] [address] Proposal Engineer: Baldemar Jones MDUrea nitrogen [Mass/Vol]22 mg/dLNormal7-25 [facility] DiagnosticsComment on above:Order Comment: FASTING:YES FASTING: YESPerformed By: #### 496, 73542 #### [facility] [address] [place] [address] Proposal Engineer: Baldemar Jones MDHEMOGLOBIN A1con 84-92-7084YPTIZPQWRF A1c7.9 % of total HgbHigh<5.7Quest DiagnosticsComment on above:Result Comment: For someone without known diabetes, a [...] hemoglobin A1c for diagnosis of diabetes for children.Performed By: #### 496, 75947 #### [facility] [address] [facility], [address] [place] [address] Proposal Engineer: Baldemar Kaplan Panel InformationOrdered By: Bang Nunez on 90-45-4727Ffcgfptoozgbamtrkvb Uefancb57.5 pg/mL7.2-63.3FDetwiler Memorial HospitalComment on above:ACTH reference interval for samples collected between 7 and 10 AM. Performed at: [facility] [id number] Hand Suture Winder: Braxton Austin PhD, Phone: [phone] reference interval for samples collected between 7 and10 AM.Performed at: [facility] [id number] Director: Braxton Austin PhD, Phone: [phone] (T4) free [Mass/volume] in Serum or PlasmaOrdered By: Bang Nunez on 82-87-3818Ghai T4 [Mass/Vol]0.81 ng/dL0.61-1.12[facility] HospitalFree T4 [Mass/Vol]Thyroxine (T4) free [Mass/volume] in Serum or Plasma0.61-1.12[facility] HospitalB TYPE NATRIURETIC PEPTIDE (BNP) on 61-86-9566Qaouiqnmuni peptide B (Bld) [Mass/Vol]67 pg/mLNormal<100Quest DiagnosticsComment on above:Result Comment: BNP levels increase with age in the general population with the highest values seen in individuals greater than 75 years of age. Reference: J. Am. Ozzie. Cardiol. 2002; 40:976-982.Performed By: #### 97971, 58355 #### [facility] [address], [address] [place] [address] Proposal Engineer: Baldemar SCHROEDER METABOLIC PANELon 57-72-4561Ppiwduu [Mass/Vol]9.4 mg/dLNormal8.6-10.4Quest DiagnosticsComment on above:Order Comment: FASTING:NO FASTING: NOPerformed By: #### 64770, 90118 #### [facility] [address], [address] [place] [address] Proposal Engineer: Baldemar Jones MDChloride [Moles/Vol]99 mmol/QPvgcyh98-756Rmssa DiagnosticsComment on above:Order Comment: FASTING:NO FASTING: NOPerformed By: #### 90864, 36710 #### [facility] [address], [address] [place] [address] Proposal Engineer: Baldemar Jones MDCO2 [Moles/Vol]32 mmol/VDahixu90-16Bqsja DiagnosticsComment on above:Order Comment: FASTING:NO FASTING: NOPerformed By: #### 14016, 40051 #### [facility] [address], [address] [place] [address] Proposal Engineer: Baldemar CARREONreatinine [Mass/Vol]0.90 mg/dLNormal0.60-0.93 [facility] DiagnosticsComment on above:Order Comment: FASTING:NO FASTING: NOResult Comment: For patients >49 years of age, the reference limit for Creatinine is approximately 13% higher for people identified as -Citizen Of [place].Performed By: #### 20278, 40726 #### [facility] [address], [address] [place] [address] Proposal Engineer: Baldemar Jones MDeGFR NON-AFR. YNXJIIQH24 mL/min/1.55y2Blxlrg> OR = 60Quest DiagnosticsComment on above:Order Comment: FASTING:NO FASTING: NOPerformed By: #### 66685, 85118 #### [facility] [address], [address] [place] [address] Proposal Engineer: Baldemar Jones MDGFR/1.73 sq M.predicted among blacks MDRD (S/P/Bld) [Vol rate/Area]75 mL/min/{1.73_m2}Normal> OR = 60[facility] Comment on above:Order Comment: FASTING:NO FASTING: NOPerformed By: #### 47845, 68417 #### [facility] [address], [address] [place] [address] Proposal Engineer: Baldemar Jones MDGlucose [Mass/Vol]174 mg/oBHoiz69-137Cgmvt DiagnosticsComment on above:Order Comment: FASTING:NO FASTING: NOResult Comment: Non-fasting reference interval For someone without known diabetes, a glucose value >125 mg/dL indicates that they may have diabetes and this should be confirmed with a follow-up test.Performed By: #### 09212, 83624 #### [facility] [address], [address] [place] [address] Proposal Engineer: Baldemar Jones MDPotassium [Moles/Vol]3.7 mmol/LNormal3.5-5.3 [facility] DiagnosticsComment on above:Order Comment: FASTING:NO FASTING: NOPerformed By: #### 98615, 24494 #### [facility] [address], [address] [place] [address] Proposal Engineer: Baldemar Jones MDSodium [Moles/Vol]143 mmol/IDgpxia456-771Mzsyr DiagnosticsComment on above:Order Comment: FASTING:NO FASTING: NOPerformed By: #### 90536, 81713 #### [facility] [address], [address] [place] [address] Proposal Engineer: Baldemar Jones MDUrea nitrogen [Mass/Vol]35 mg/dLHigh7-25Quest DiagnosticsComment on above:Order Comment: FASTING:NO FASTING: NOPerformed By: #### 25869, 72581 #### [facility] [address], [address] [place] [address] Proposal Engineer: Baldemar Merati MDUrea nitrogen/Creatinine [Mass ratio]39 mg/mg High6-22Quest DiagnosticsComment on above:Order Comment: FASTING:NO FASTING: NOPerformed By: #### 83203, 78797 #### [facility] [address], [address] [place] [address] Proposal Engineer: Baldemar Jones MDALBUMIN, RANDOM URINE W/CREATININEon 08-29-0748LREMMMR, URINE0.9 mg/dLNormalSee Note:Quest DiagnosticsComment on above:Result Comment: Reference Range: Reference Range Not establishedPerformed By: #### 8000, 6517, 48972 #### [facility] Diagn[facility] [address], [address] [place] [address] Proposal Engineer: Baldemar Jones MDALBUMIN/CREATININE RATIO, RANDOM URINE13 mcg/mg creatNormal<30Quest DiagnosticsComment on above:Result Comment: The ADA defines abnormalities in albumin excretion as follows: Albuminuria Category Result (mcg/mg creatinine) Normal to Mildly increased <30 Moderately increased 30-299 Severely increased > OR = 300 The ADA recommends that at least two of three specimens collected within a 3-6 month period be abnormal before considering a patient to be within a diagnostic category.Performed By: #### 5040, 6517, 09159 #### [facility] [address], [address] [place] [address] Proposal Engineer: Baldemar CARREONreatinine (U) [Mass/Vol]69 mg/nHNrququ68-322 [facility] DiagnosticsComment on above:Performed By: #### 7600, 6517, 03779 #### [facility] [address], [address] [place] [address] Proposal Engineer: Baldemar CARREONOMPREHENSIVE METABOLIC PANELon 10-02-2021 Albumin [Mass/Vol]4.4 g/dLNormal3.6-5.1Quest DiagnosticsComment on above: Performed By: #### 2470, 6517, 44768 #### [facility] [address], [address] [place] [address] Proposal Engineer: Baldemar Jones MDAlbumin/Globulin [Mass ratio]1.7 {ratio}Normal 1.0-2.5Quest DiagnosticsComment on above:Performed By: #### 7600, 6517, 18522 #### [facility] of [address], [address] [place] [address] Proposal Engineer: Baldemar Jones MDALP [Catalytic activity/Vol]50 U/QNylplj83-329 Quest DiagnosticsComment on above:Performed By: #### 7600, 6517, 10264 #### [facility] of [address], [address] [place] [address] Proposal Engineer: Baldemar Jones MDALT [Catalytic activity/Vol]15 U/LNormal6-29 Quest DiagnosticsComment on above:Performed By: #### 7600, 6517, 76190 #### [facility] of [address], [address] [place] [address] Proposal Engineer: Baldemar Jones MDAST [Catalytic activity/Vol]15 U/PSokyta59-04 Quest DiagnosticsComment on above:Performed By: #### 7600, 6517, 08493 #### [facility] of [place] [address] Proposal Engineer: Baldemar Jones MDBilirubin [Mass/Vol]1.2 mg/dLNormal0.2-1.2 Quest DiagnosticsComment on above:Performed By: #### 7600, 6517, 07065 #### [facility] of [address], [address] [place] [address] Proposal Engineer: Baldemar Jones MDBUN/CREATININE RATIONOT APPLICABLENormal6-22 Quest DiagnosticsComment on above:Performed By: #### 7600, 6517, 13872 #### [facility] of [address], [address] [place] [address] Proposal Engineer: Baldemar Jones MDCalcium [Mass/Vol]9.6 mg/dLNormal8.6-10.4Quest DiagnosticsComment on above:Performed By: #### 7600, 6517, 56900 #### [facility] of [place] [address] Proposal Engineer: Baldemar Jones MDChloride [Moles/Vol]103 mmol/NTdqlim04-981 Quest DiagnosticsComment on above:Performed By: #### 7600, 6517, 65332 #### [facility] of [address], [address] [place] [address] Proposal Engineer: Baldemar Jones MDCO2 [Moles/Vol]27 mmol/CXaoezv86-17Obbqs DiagnosticsComment on above:Performed By: #### 7600, 6517, 23656 #### [facility] of [place] [address] Proposal Engineer: Baldemar CARREONreatinine [Mass/Vol]0.81 mg/dLNormal0.60-0.93 Quest DiagnosticsComment on above:Result Comment: For patients >49 years of age, the reference limit for Creatinine is approximately 13% higher for people identified as -Citizen Of [place].Performed By: #### 7600, 6517, 35048 #### [facility] [place] [address] Proposal Engineer: Baldemar Jones MDeGFR NON-AFR. PJLXJUFL56 mL/min/1.50x9Jhyefa> OR = 60Quest DiagnosticsComment on above:Performed By: #### 7600, 6517, 28964 #### [facility] of [place] [address] Proposal Engineer: Baldemar Jones MDGFR/1.73 sq M.predicted among blacks MDRD (S/P/Bld) [Vol rate/Area]85 mL/min/{1.73_m2}Normal> OR = 60[facility] Comment on above:Performed By: #### 7600, 6517, 98953 #### [facility] of [place] [address] Proposal Engineer: Baldemar Jones MDGlobulin (S) [Mass/Vol]2.6 g/dLNormal1.9-3.7 Quest DiagnosticsComment on above:Performed By: #### 0, 6517, 58290 #### [facility] [place] [address] Proposal Engineer: Baldemar Jones MDGlucose [Mass/Vol]109 mg/dEFfjx55-21Ffhfz DiagnosticsComment on above:Result Comment: Fasting reference interval For someone without known diabetes, a glucose value between 100 and 125 mg/dL is consistent with prediabetes and should be confirmed with a follow-up test.Performed By: #### 0, 6517, 12099 #### [facility] [place] [address] Proposal Engineer: Baldemar Jones MDPotassium [Moles/Vol]4.1 mmol/LNormal3.5-5.3 Quest DiagnosticsComment on above:Performed By: #### 0, 65, 12673 #### [facility] [place] [address] Proposal Engineer: Baldemar Jones MDProtein [Mass/Vol]7.0 g/dLNormal6.1-8.1Quest DiagnosticsComment on above:Performed By: #### 0, 6517, 91173 #### [facility] [place] [address] Proposal Engineer: Baldemar Jones MDSodium [Moles/Vol]143 mmol/AVbxulb991-868Pyrcd DiagnosticsComment on above:Performed By: #### 0, 6517, 32207 #### [facility] [place] [address] Proposal Engineer: Baldemar Jones MDUrea nitrogen [Mass/Vol]19 mg/dLNormal7-25 Quest DiagnosticsComment on above:Performed By: #### 0, 6517, 95594 #### [facility] of [place] [address] [place] [address] Proposal Engineer: Baldemar Jones MDLIPID PANEL, STANDARD 84-21-9036Virmkwhbmcp [Mass/Vol]106 mg/dLNormal<200Quest DiagnosticsComment on above:Order Comment: FASTING:YES FASTING: YESPerformed By: #### 7600, 6517, 14255 #### [facility] [address], [address] [place] [address] Proposal Engineer: Baldemar Jones MDCholesterol in HDL [Mass/Vol]44 mg/dLLow> OR = 50Quest DiagnosticsComment on above:Order Comment: FASTING:YES FASTING: YESPerformed By: #### 7600, 6517, 27042 #### [facility] [address], [address] [place] [address] Proposal Engineer: Baldemar Jones MDCholesterol in LDL [Mass/Vol]36 mg/dLNormal Quest DiagnosticsComment on above:Order Comment: FASTING:YES FASTING: YESResult Comment: Reference range: <100 Desirable range <100 mg/dL for primary prevention; <70 mg/dL for patients with CHD or diabetic patients with > or = 2 CHD risk factors. LDL-C is now calculated using the Theo-Wilfrido calculation, which is a validated novel method providing better accuracy than the Friedewald equation in the estimation of LDL-C. Theo KNAPP et al. KEZIA. 2013;310(19): 1349-3703 (http://education.Yipit.[employer]/faq/VED505)Performed By: #### 7600, 6517, 11844 #### [facility] [address], [address] [place] [address] Proposal Engineer: Baldemar Jones MDCholesterokya.total/Cholesterol in HDL [Mass ratio]2.4 {ratio}Normal<5.0Quest DiagnosticsComment on above:Order Comment: FASTING:YES FASTING: YESPerformed By: #### 7600, 6517, 33457 #### [facility] [address], [address] [place] [address] Proposal Engineer: Baldemar MOMIN HDL LKYOTWUPHSR05 mg/dL (calc)Normal<130 Quest DiagnosticsComment on above:Order Comment: FASTING:YES FASTING: YESResult Comment: For patients with diabetes plus 1 major ASCVD risk factor, treating to a non-HDL-C goal of <100 mg/dL (LDL-C of <70 mg/dL) is considered a therapeutic option.Performed By: #### 7600, 6517, 52513 #### [facility] [address], [address] [place] [address] Proposal Engineer: Baldemar Jones MDTriglyceride [Mass/Vol]185 mg/dLHigh<150Quest DiagnosticsComment on above:Order Comment: FASTING:YES FASTING: YESPerformed By: #### 7600, 6517, 07982 #### [facility] [address], [address] [place] [address] Proposal Engineer: Baldemar Jones MDLaboratory - Chemistry and Chemistry - challengeOrdered By: Rose Ohara on 97-63-0852Ykaujk [Catalytic activity/Vol]27.0 U/W34-17WdcrrmltuMercy Health St. Elizabeth Boardman HospitalRandom cortisol measurementOrdered By: Rose Ohara on 87-27-8369Xshlwbqm [Mass/Vol]10.1 ug/dLMercy Health St. Elizabeth Boardman HospitalComment on above:Reference range: AM 6 - 24 ug/dl PM <10 ug/dlReference range: AM 6 - 24 ug/dl PM <10 ug/dlCortisol [Mass/Vol] Random cortisol measurementMercy Health St. Elizabeth Boardman HospitalComment on above: Reference range: AM 6 - 24 ug/dl PM <10 ug/dlCreatinine (Bld) [Mass/Vol]Ordered By: Bang Nunez on 80-90-4850Oslgdizzem [Mass/Vol]0.6 mg/dL0.6-1.3FDetwiler Memorial HospitalComment on above:ER/ESD physician is notified/shown all ISTAT results. Critical values may be confirmed by laboratory testing if deemed necessary by ER attending doctor.ER/ESD physician is notified/shown all ISTAT results.Critical values may be confirmed by laboratorytesting ifdeemed necessary by ER attending doctor.Creatinine [Mass/Vol]Whole blood creatinine measurement0.6-1.3FDetwiler Memorial HospitalComment on above:ER/ESD physician is notified/shown all ISTAT results.Critical values may be confirmed by laboratorytesting ifdeemed necessary by ER attending doctor.No Panel InformationOrdered By: Bang Nunez on 89-52-2699XYK Estimated GFR > 60[facility] Board[facility] HospitalComment on above:GFR estimated reference range: According to KDOQI guidelines, <60 ml/min/1.73m2 is sufficient todiagnose a patient with chronic kidney disease.POC Estimated GFR Non- Amer> 60[facility] HospitalGlucose Glucometer (BldC) [Mass/Vol] Ordered By: Bang Nunez on 82-90-9683Uehvsky [Mass/Vol]124 mg/dLMercy Health St. Elizabeth Boardman HospitalComment on above:Random Glucose Reference Range is dependent on time and content of last meal. Glucose of more than 200 mg/dL in a nonstressed, ambulatory subject supports the diagnosis of Diabetes Mellitus. Glucose [Mass/Vol]Capillary blood glucose measurement by glucometer (mass/volume)[facility] Board[facility] HospitalComment on above:Random Glucose Reference Range is dependent on time and content of last meal. Glucose of more than 200 mg/dL in a nonstressed, ambulatory subject supports the diagnosis of Diabetes Mellitus.COVID-19 Positive/Negativeon 02-67-1836QGGC-CoV-2 (COVID-19) N gene KIP+probe Ql (Resp)NegativeNegativeMercy Health St. Elizabeth Boardman Hospital Comment on above:Reference: Negative Testing for SARS-CoV-2 by RT-PCR This test was developed and its performance characteristics determined by [employer] ([employer]progress) and validated at the [facility]. This test has not been FDA [...] of time the declaration that circumstances exist ju stifying the authorization of the emergency use of in vitro diagnostic tests for detection of SARS-CoV-2 virus and/or diagnosis of COVID-19 infection under section 564(b)(1) of the Act, 21 U.S.C. 360bbb-3(b)(1), unless the authorization is terminated or revoked sooner.Reference: NegativeTesting for SARS-CoV-2 by RT-PCRThis test was developed and its performance characteristics determined by [employer] ([employer]) and validated at the [facility]. This test has not been FDA cleared or approved. This test has been authorized by FDA under an Emergency Use Authorization (EUA). This test has been validated in accordance with the FDA's Guidance Document (Policy for Diagnostics Testing in Laboratories Certified to Perform High Complexity Testing under CLIA prior to Emergency Use Authorization for Coronavirus Disease-2019 duringthe Public Health Emergency) issued on February 07, 2020. This test is only authorized for the durationof time the declaration that circumstances exist justifying the authorization of the emergency use of in vitro diagnostic tests for detection of SARS-CoV-2 virus and/or diagnosis of COVID-19 infection under section 564(b)(1) of the Act, 21 U.S.C. 360bbb-3(b)(1), unless the authorization is terminated or revoked sooner.Laboratory - Microbiology and Antimicrobial susceptibilityon 41-77-3553XLWB-CoV-2 (COVID-19) RNA KIP+probe Ql (Unsp spec)N/A [facility] HospitalNo Panel Informationon 60-65-4933Mhqoccg Glucose CommentGlu2: cleaned [facility] Dermatopathologyon 01-49-5638VbowoufblfndrbfyUavmusrjle [facility] D[facility]at[facility] Laboratory [address] [place] [id number] DERMATOPATHOLOGY REPORT Name:TOSHA MCNEAL Med. Rec #. [id number] Location: Date of Procedure: 11/28/2020 Race: Date [...] control slides stain appropriately. The prior biopsy [id number] was received and reviewed. The morphology is [...] determined by the Department of Pathology at [facility]. The FDA does not require this test [...] appropriately. Electronically Signed Out By JANNETH PONCE MD/[facility] By the signature on this report, the individual or group listed as making the Final Interpretation/Diagnosis certifies that they have reviewed this case. Clinical History: A: Non sentinal lymph node. Excision. B: [place] Lymph node count 1005. (Hospital Outpatient) Specimens Submitted As: A: NODE, RIGHT AXILLARY NON-SENTINEL LYMPH NODE B: NODE, RIGHT AXILLARY SENTINEL LYMPH NODE COUNT 1005 Gross Description: A: Received in formalin is a ackerman-yellow irregularly shaped piece of tissue measuring 1o5z3xo. The specimen is inked and embedded in toto. B: Received in formalin is one ackerman-yellow irregularly shaped piece of tissue measuring 12y81b15wd. The specimen is inked and embedded in toto in three blocks. ink/12/01/2020 Microscopic Description: A. Microscopic examination reveals a lymph node with normal architecture. No melanoma is seen on H and E staining. Melan-A, SOX-10, and HMB45 stains are unremarkable. All control slides stain appropriately.NormalTrenton Psychiatric HospitalComment on above:Performed By: #### D #### DermatopathologyGLUCOSE-POCTon 73-25-4526Zljacal [Mass/Vol]136 mg/sEAlwf60 - 99 [facility] – GroveComment on above:Performed By: #### GLUPO #### [facility] [address] [facility]. [place], [place] [address]Wqdicaa [Mass/Vol]135 mg/uOSwau16 - 53RR-Clvohrs-ExjlangHealthsource [place] Work Phone: comment on above:Performed By: #### GLUPO #### [facility] [address] [place], [place] [address]Lznmjmh and Physical - Surgery > 30 dayson 30-38-1648Sudfzhf and Physical - Surgery > 30 daysHistory of Present Illness: History Present Illness: Reason for surgery: melanoma HPI: T3b melanoma requiring [place] lymph node biopsy Allergies: Allergies: No Known [...] Completion Last Updated: 28-Nov-2020 09:32 by Diallo Berger)NormalSt. Carraway Methodist Medical CenterLYMPH GLANDon 01-44-8138Kuytrrctjil (Bld) [#/Vol] Patient Name: TOSHA MCNEAL STUDY: LYMPH GLAND; 11/28/2020 10:56 am INDICATION: Malignant melanoma of right upper arm. COMPARISON: None. ACCESSION NUMBER(S): [id number] ORDERING CLINICIAN: DIALLO BERGER TECHNIQUE: DIVISION OF [...] lymph node localization to the right axilla. Internal Sales images were sent to PACS. I personally reviewed the images/study and I agree with the findings as stated. This study was interpreted at [place], [place]. Electronically signed by: RICKI SALGADO MDNormalSt. Carraway Methodist Medical Center Patient Profile - Adult v2on 62-39-9163Httebvv Profile - Adult v2This report has been cancelled.NormalSt. Carraway Methodist Medical CenterPatient Profile - Preop v2on 44-76-1940Phjfnub Profile - Preop r5Bbwjbna: Initial Info: How to be AddressedSUZANNE(1) Spoken Language PreferredEnglish (1) Source of Informationpatient Are you currently using the Personal Electronic Health Record or AdMoment Stated Reason for Admissioninjection in my lymph nodes Primary Contact Name and Numberharry-spouse Limitations on Visitors/Phone Callsonly spouse may visit Patient Belongingsremains with patient; patient educated regarding responsibility for personal items Patient Belongings Remaining with Patientclothing; vision aids; dental appliance Medications Brought to Hospitalno General Health: Weight in kg94.2 kilogram(s) Weight in jvr561.6 pound(s) Weight Methodactual (measured) Scale Typechair Height in feet5 feet Height in inches0 inch(es) Height in cm152.4 centimeter(s) Height Methodstated BMI (kg/m2)40.558 square meter Patient or Family Member Reaction to Anesthesiano previous reaction Blood Avoidance/Restrictionsnone Previous Transfusion Reactionno Health Mgmt: Symptoms/Conditions Managed at Homeendocrine; cardiovascular Cardiovascular Symptoms/Conditionshypertension Endocrine Symptoms/Conditionsdiabetes Endocrine Management Strategiesinsulin therapy Barriers to Managing Healthnone Relationship/Environ: Living Arrangementshouse Lives Withspouse Resource/Environmental Concernsnone Anticipated Transition Tofort gratiot Services Anticipated at Transitionnone Substance: Current or [...] instruction; written material Cultural Considerationsnone Developmental Considerationsnone Mandaeism Considerationsnone Other learner availableno Falls RiskPatient location auto qualifies him/her for HIGH RISK. Are there any cultural, spiritual, congregation practices/values/needs that are important for us to [...] From Patient Profile - Adult v2 28-Nov-2020 07:19NormalSt. Carraway Methodist Medical CenterPreop Checkliston 13-54-1197Dbgan ChecklistPreop Checklist: Preop Checklist: Arrival Igid12-Upp-1613 Arrival Time07:00 Procedure Typeinjection of right arm excision scar Heart Rate65 beats per minute Respiratory Rate16 breath per minute Blood Pressure Iaceuyjb747 mm/Hg Blood Pressure Iluqjcvgy73 mm/Hg NPO Hlxjcn26-Kvq-4458 10:30 ID Band Onyes Allergy Bandno known allergies Consent Signedyes H&P Completeyes EKG Performedyes Chest X-Ray Performednot ordered HCG Urine TestN/A Chlorhexadine Bath Givennot applicable Nasal Antiseptic Appliednot applicable Hair Washednot applicable Soap and water bath with hair shampoo the night before surgerynot applicable Hat placed on prior to transportnot applicable SCD's Appliednot applicable MYRON Hose Appliednot ordered Denturesnot applicable remains with [...] Last Updated: 28-Nov-2020 07:26 by Evelin Lovett (PERLA)NormalSt. Carraway Methodist Medical CenterCORONAVIRUS 2019, SCREEN ASYMPTOMATICon 06-82-1571NEFQ-CoV-2 (COVID-19) RNA KIP+probe Ql (Unsp spec)Not detectedNormalNot DetectedUH Care One At Raritan Bay Medical CenterComment on above:Result Comment: . This assay is designed to [...] patient management decisions. Fact sheet for providers: https://www.fda.gov/media/772412/download Fact sheet for patients: https://www.fda.gov/media/258521/download This test has received FDA Emergency Use Authorization (EUA) and has been verified by [facility] ([facility]). This test is only authorized for the duration of time that circumstances exist to justify the authorization of the emergency use of in vitro diagnostic tests for the detection of SARS-CoV-2 virus and/or diagnosis of COVID-19 infection under section 564(b)(1) of the Act, 21 U.S.C. 360bbb-3(b)(1), unless the authorization is terminated or revoked sooner. [facility] is certified under CLIA-88 as qualified to perform high complexity testing. Testing is performed in the [facility] laboratories located at [address] [place] [address].Performed By: #### COVSC #### [place], [place] [address]Lab Specimen SourceNasal, NasopharyngealNormalUH Care One At Raritan Bay Medical CenterComment on above:Performed By: #### COVSC #### [place], [place] [address]Coronavirus 2019 RNA by PCR, Screening Asymptomticon 87-79-1280Xvrnlozdyqj 2019 RNA by PCR, Screening AsymptomticNOT DETECTEDSee [facility] Work Phone: comment on above:SOURCE: Nasal, NasopharyngealReference Range: Not Detected.This assay is designed to detect the N, ORF1ab and/or S genes of SARS-CoV-2 via nucleic acid amplification. A Negative (NOT DETECTED) resultdoes not preclude 2019-nCoV infection since the adequacy of sample collection and/or low viral burden may result in presence of viral nucleic acids below the clinical sensitivity of this test method.Negative (NOT DETECTED) result should not be used as the sole basis for treatment or other patient management decisions. Rather negative results should be combined with clinical observations, patienthistory, and epidemiological information to make patient management decisions.Fact sheet for providers: https://www.fda.gov/media/203064/downloadFact sheet for patients: https://www.fda.gov/media/906937/downloadThis test has received FDA Emergency Use Authorization (EUA) and has been verified by [facility] ([facility]). This test is only authorized for the duration of time that circumstances exist to justify the authorization of the emergency use of in vitro diagnostic tests for the detection of SARS-CoV-2 virus and/or diagnosis of COVID-19 infection under section 564(b)(1) of the Act, 21 U.S.C. 360bbb- 3(b)(1), unless the authorization is terminated or revoked sooner. [facility] is certified under CLIA-88 as qualified to perform high complexity testing. Testing is performed in the [facility] laboratories located at [address] [place] [address].Covid 19 Resultson 11-26-2020 SARS-CoV-2 (COVID-19) RNA KIP+probe Ql (Unsp spec)NEGATIVE COVID-19 Test Coronaviruses are common world-wide and [...] may also be contacted by the [facility] to see if any of [...] or Naproxen (Aleve) can also be used. Bhjg-vsu-mtattsv cough and cold medicines can be used according to the instructions on the package. Some xhfk-nxf-rnbgtwf medicines also contain acetaminophen. Make sure you [...] water are not available, use alcohol-based hand military science instructor. Avoid touching your eyes, nose, and mouth [...] medicines like ibuprofen (Motrin) (more content not included)...NormalTrenton Psychiatric HospitalBASI METABOLIC PANELon 59-30-9530Jyfsj gap [Moles/Vol] 15 mmol/CSsuuks62 - 20St. [facility] Methodist Medical CenterComment on above:Performed By: #### BMP #### [address] [address]Umslcqf [Mass/Vol]9.7 mg/dLNormal8.6 - 10.3St. Carraway Methodist Medical CenterComment on above:Performed By: #### BMP #### [address] [address]Vmmuqiki [Moles/Vol]99 mmol/AAelumc12 - 107St. [facility] Methodist Medical CenterComment on above:Performed By: #### BMP #### [address] [place], [place] [address]Fexwtdlhyp [Mass/Vol]0.64 mg/dLNormal0.50 - 1.05St. [facility]raway Methodist Medical CenterComment on above:Performed By: #### BMP #### [address] [place], [place] [address]JLU-EPGCRJA AM.>60Normal>60St. [facility] Methodist Medical CenterComment on above:Result Comment: CALCULATIONS OF ESTIMATED GFR ARE PERFORMED USING THE MDRD STUDY EQUATION FOR THE IDMS-TRACEABLE CREATININE METHODS. CLIN CHEM 2007;53:766-72Performed By: #### BMP #### [address] [place], [place] [address]XCD-SIJ AM.>60Normal>60St. [facility]way Methodist Medical CenterComment on above:Performed By: #### BMP #### [address] [place], [place] [address]Uouufik [Mass/Vol]105 mg/nNDwcl90 - 99[facility] Comment on above:Performed By: #### BMP #### [address] [place], [place] [address]IGL3 (Bld) [Moles/Vol]30 mmol/QSqorde69 - 32St. [facility] Methodist Medical CenterComment on above:Performed By: #### BMP #### [address] [address]Inkjzqpnq [Moles/Vol]3.7 mmol/LNormal3.5 - 5.3St. [facility] Methodist Medical CenterComment on above:Performed By: #### BMP #### [address] [address]Bkoxyw [Moles/Vol]140 mmol/RIoepah793 - 145St. [facility]way Methodist Medical CenterComment on above:Performed By: #### BMP #### [address] [place], [place] [address]Hltv nitrogen [Mass/Vol]18 mg/dLNormal6 - 23St. [facility] Methodist Medical CenterComment on above:Performed By: #### BMP #### [facility] [address] [address], [place] [address]Urloeogll Panelon 85-26-7060Msiyb gap [Moles/Vol]15 mmol/L10 - 89TQ-Fprxgoy-KmkorluKalamazoo Psychiatric Hospital Work Phone: [phone] on above:Ordering Provider: LUZ StarksCalcium [Mass/Vol]9.7 mg/dL8.6 - 10.4HY-Hmrxqjb-IxbkmupUp Health System Work Phone: [phone] on above:Ordering Provider: LUZ StarksChloride [Moles/Vol]99 mmol/L98 - 801QA-Vxgmjdw-LoidpkmUp [facility] System Work Phone: [phone] on above:Ordering Provider: LUZ StarksCO2 [Moles/Vol]30 mmol/L21 - 29VX-Jtmevvg-DnhqjiqUp Health System Work Phone: [phone] on above:Ordering Provider: LUZ StarksCreatinine [Mass/Vol]0.64 mg/dLSee GzjgxWF-Stbcjdd-NxdmjpcSelect [facility] Work Phone: [phone] on above:Reference Range: 0.50 - 1.05Ordering Provider: LUZ StarksGlucose [Mass/Vol]105 mg/dLabove high vvzpazsft78 - 44TT-Aybcpbg-ZuknapiUp Health System Work Phone: [phone] on above:Ordering Provider: LUZ StarksPotassium [Moles/Vol]3.7 mmol/L3.5 - 5.4RT-Flpjggv-GixygwcUp Health System Work Phone: [phone] on above:Ordering Provider: LUZ StarksSodium [Moles/Vol]140 mmol/L136 - 727FL-Ikawpdn-MukmqqhUp Health System Work Phone: [phone] on above:Ordering Provider: LUZ StarksUrea nitrogen [Mass/Vol]18 mg/dL6 - 77OJ-Evnxyna-OrylfpsUp Health System Work Phone: [phone] on above:Ordering Provider: LUZ REBOLLEDO 17131Xhtopfm 11-21-2020>60>62LN-Bdnycll-OazyemmKalamazoo Psychiatric Hospital Work Phone: [phone] on above:CALCULATIONS OF ESTIMATED GFR ARE PERFORMED USING THE MDRD STUDY EQUATION FOR THE IDMS-TRACEABLE CREATININE METHODS. CLIN CHEM 2007;53:766-72Ordering Provider: LUZ REBOLLEDO [id number] 1 [facility] Work Phone: [phone] 5JH-Rqryngf-VykxpwyKalamazoo Psychiatric Hospital Work Phone: [phone] rhythm with 1st degree AV block [facility] Work Phone: [email or web address]?RetrieveTestByDateTime?Patien gXL=[id number]&Da te=21-11-2020&Time=11%3a49%3a35%3a00&TestType=ECG&Site=12&OutputType=PDF&Ext=PDF QQ-Tstawom-HyluqinUp Health System Work Phone: [phone] 2VI-Qekkoau-MklhytcKalamazoo Psychiatric Hospital Work Phone: [phone] [address] [place] [address] Work Phone: [phone] [address] [place] [address] Work Phone: [phone] 8GQ-Pbqtrev-IzwzermKalamazoo Psychiatric Hospital Work Phone: [phone] 9QN-Pvyxrhc-GxqwihwSparrow [facility] Work Phone: [phone] 6EX-Pzsuzjt-EvtfkktKalamazoo Psychiatric Hospital Work Phone: [phone] 6IM-Qtirnus-RpzreboKalamazoo Psychiatric Hospital Work Phone: [phone] 9LG-Ywzynrz-UbqkkxcKalamazoo Psychiatric Hospital Work Phone: [phone] 5BX-Revxdpz-AaiiypvM[facility] Work Phone: [phone] 1QB-Cicpncv-FwocvhtMclaren [facility] Work Phone: [phone] [address] [place] [address] Work Phone: [phone]-Mjedoub-[facility] Work Phone: Initial Visit (General Surgery)on 49-26-0029Zrchyno Visit (General Surgery)Diagnoses/Problems Malignant melanoma of right upper arm (172.6) (C43.61) Patient Discussion/Summary 69-year-old woman with 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 I discussed with her that the standardof care in this situation is wide excision [...] be. We will plan for surgery at [facility] after the new year. Preadmission testing will [...] visit. Right arm melanoma History of Present Plawlnq70-yeuk-xjx woman referred to me by Dr. Nunez [...] axillary lymphadenopathy. She is referred to me forconsideration of sentinel lymph node biopsy. She has no personal history of skin cancer Past medical history arthritis, hypertension, hyperlipidemia, diabetes, gout, osteoporosis Past surgical history rotator cuff repair, tubal ligation, eye surgery Family history no family history of melanoma Social history never smoker, , lives in the [facility] Medications include Ocuvite eyedrops, alendronate, amlodipine, [...] MD; Oct 23 2020 10:45AM EST (Author) [facility] Vital Signs Date TimeVital SignValuePerforming TyabruaufYtifjbns97-67-6605 11:15-0400 Diastolic blood vuywkchk80 mm[Hg]Wild quitchen DO Work Phone: [phone]09-23-2025 11:15-0400 Heart rate64 /Well[employer] DO Work Phone: [phone]09-23-2025 11:15-0400 Respiratory rate18 /Dress Codeis WhereInFairng DO Work Phone: [phone]09-23-2025 11:15-0400 SaO2% (BldA) [Mass fraction]97 %WildDuvas Technologies DO Work Phone: [phone]09-23-2025 11:15-0400 Systolic blood hmpieesw616 mm[Hg]WildCorhythmng DO Work Phone: [phone]09-23-2025 11:00-0400 Inhaled oxygen flow rate2 L/ParkerVisionng DO Work Phone: [phone]09-23-2025 10:00-0400 Body tghjihgqifa40.9 [degF]WildDuv[employer] Technologies DO Work Phone: [phone]09-23-2025 07:15-0400 Body dkfofo260.4 cmDavianDuvas Technologies DO Work Phone: [phone]09-23-2025 07:15-0400 Body asqaxw70 kgDennis Furlong DO Work Phone: [facility]09-10-2025 08:54-0400 Body codkdf895.4 cmDennis Furlong DO Work Phone: [facility] [employer] Jzlbij29-48-0453 08:54-0400Body mass index (BMI) [Ratio]40.82 kg/f9Jwagjx Furlong DO Work Phone: [facility] [employer] Dvszsp84-75-2937 08:54-0400Body rznyibqselt43.2 [degF]Wild Furlong DO Work Phone: [facility] [employer] Shtcrt71-56-8264 08:54-0400Body ovzfis64.8 kgDennis Furlong DO Work Phone: [facility] [employer] Kxwzcb21-00-9005 08:54-0400Diastolic blood mm[Hg]Wild Furlong DO Work Phone: [facility] [employer] Uavxlb29-12-2129 08:54-0400Heart rate 63 /minDennis Furlong DO Work Phone: [facility] [employer] Uhbwbi98-17-4403 08:54-0400 Respiratory rate18 /minDennis Furlong DO Work Phone: [facility] [employer] Qemvkn88-51-8452 08:54-0448AuU8% (BldA) [Mass fraction]96 %Wild Furlong DO Work Phone: [facility] [employer] Kaqizd31-14-5600 08:54-0400Systolic blood wwhyzetc657 mm[Hg]Wild Furlong DO Work Phone: [facility] [employer] Ohcoie27-33-6686 13:56-0400Body .4 cmDennis Furlong DO Work Phone: [facility] [employer] Owmave31-98-9128 13:56-0400Body mass index (BMI) [Ratio]40.74 kg/p9Vfuuta Furlong DO Work Phone: [facility] [employer] Asvbsd99-10-4506 13:56-0400Body cekpygecxai98.39 [degF]Wild Centeno DO Work Phone: [facility]07-08-2025 13:56-0400Body avzahu18.62 kgWild Hernandezng DO Work Phone: [facility] [employer] Kxotiv05-37-3158 13:56-0400Diastolic blood ldamyork19 mm[Hg]Wild Hernandezng DO Work Phone: [facility] [employer] Sopfpt42-92-0985 13:56-0400Heart rate 71 /Harriet Hernandezng DO Work Phone: [facility]07-08-2025 13:56-0400 Respiratory rate18 /Harriet Hernandezng DO Work Phone: [facility]07-08-2025 13:56-1633HhQ3% (BldA) [Mass fraction]96 %Wild Centeno DO Work Phone: [facility]07-08-2025 13:56-0400Systolic blood mm[Hg]Wild Centeno DO Work Phone: [facility]07-01-2025 20:18-0400Body urtduv151.[address]07-01-2025 20:18-0400Body mass index (BMI) [Ratio]40.43 kg/m2Pmh [address] [place], [place] 7812507-01-2025 20:18-0400Body lnozky82.[address] [place], [place] 7812506-27-2025 09:20-0400Body afqcbv884.4 cmBrangel Ansari WOMEN'S HEALTH CARE NURSE PRACTITIONER-ARTERIAL EMBALMER Work Phone: [facility]06-27-2025 09:20-0400Body mass index (BMI) [Ratio]40.58 kg/f6KidduySarah Ansari WOMEN'S HEALTH CARE NURSE PRACTITIONER-ARTERIAL EMBALMER Work Phone: [facility]06-27-2025 09:20-0400Body yqbguskslbc10.5 [degF]Sarah HART Work Phone: [facility] [employer] Nclgif36-47-4092 09:20-0400Body amnlid73.26 kgSarah HART Work Phone: [facility] [employer] Wxizrl31-60-2466 09:20-0400Diastolic blood etigrbpv50 mm[Hg]Sarah Ansari APRN-AUTUMN Work Phone: [facility] [employer] Phrqzi19-30-3841 09:20-0400Heart rate 71 /minSarah HART Work Phone: [facility] [employer] Qckolo35-92-4236 09:20-0400 Respiratory rate20 /minSarah Ansari APRN-AUTUMN Work Phone: [facility] [employer] Wjekbt76-67-3343 09:20-0956ReP2% (BldA) [Mass fraction]96 %Sarah HART Work Phone: [facility] [employer] Sphtkj05-60-4776 09:20-0400Systolic blood fniirmyz268 mm[Hg]Sarah HART Work Phone: [facility] [employer] Mkvgap62-66-8338 11:27-0400Body qlafgv331.4 cmWild Pendletonlong DO Work Phone: [facility] [employer] Aknqto42-58-4030 11:27-0400Body mass index (BMI) [Ratio]42.18 kg/h4Lxvpkg Furlong DO Work Phone: [facility] Tximrx23-36-7530 11:27-0400Body xsetbzeyjez47.4 [degF]Wild Pendletonlong DO Work Phone: [facility] [employer] Lrbvqx94-17-2726 11:27-0400Body ithikm44.98 kgDenlewis Pendletonlong DO Work Phone: [facility] [employer] Esovql96-04-6391 11:27-0400Diastolic blood sbcdeidq73 mm[Hg]Wild Hernandezng DO Work Phone: [facility] Asyjeq87-44-0006 11:27-0400Heart rate 67 /Harriet Hernandezng DO Work Phone: [facility] [employer] Sodflz92-90-4632 11:27-0400 Respiratory rate18 /Harriet Hernandezng DO Work Phone: [facility] [employer] Yvngyq58-46-0563 11:27-9007LuG3% (BldA) [Mass fraction]94 %Wild Hernandezng DO Work Phone: [facility] [employer] Qyxmoy51-21-2467 11:27-0400Systolic blood mutxzmaf113 mm[Hg]Wild Hernandezng DO Work Phone: [facility] [employer] Zduqvr98-15-8423 11:19-0400Body xxfwhnbqyid12.2 [degF]Rajni Cline MD Work Phone: [employer]06-07-2025 09:09-0400Heart rate63 /Michele Cline MD Work Phone: [facility] [employer]06-07-2025 09:09-0400 Respiratory rate16 /Michele Cline MD Work Phone: [facility] [employer]06-07-2025 09:09-9321MxO5% (BldA) [Mass fraction]96 %Rajni Cline MD Work Phone: [facility] [employer]06-07-2025 08:15-0400Diastolic blood qetuzini78 mm[Hg]Rajni Cline MD Work Phone: [facility] [employer]06-07-2025 08:15-0400Systolic blood qteliavd349 mm[Hg]Rajni Cline MD Work Phone: [facility] [employer]06-04-2025 12:25-0400Body egosha080.4 Katie Cline MD Work Phone: [facility] [employer]06-04-2025 12:25-0400Body mass index (BMI) [Ratio]41.01 kg/v1QtebuoRajni Cline MD Work Phone: [facility] [employer]06-04-2025 12:25-0400Body guymve09.25 kgStgeovanna Cline MD Work Phone: [facility] [employer]05-15-2025 11:44-0400Body nrwcacpdklr50.6 [degF]Wild Hernandezng DO Work Phone: [facility] Dhehjs19-93-7900 11:44-0400Diastolic blood acysamxl74 mm[Hg]Wild Hernandezng DO Work Phone: [facility] Rtckov18-21-5428 11:44-0400Heart rate 72 /minDennis Davidng DO Work Phone: [facility] Naihxq16-01-5214 11:44-0400Systolic blood xnjukoyw325 mm[Hg]Wild Hernandezng DO Work Phone: [facility] Fcgljt63-51-4269 11:25-0400Body ulgghcrwpdu58.8 [degF]Carlos Garcia MD Work Phone: [facility] [employer]05-04-2025 11:25-0400Diastolic blood qmpcebsi99 mm[Hg]Carlos Garcia MD Work Phone: [employer]05-04-2025 11:25-0400Heart rate80 /minCarlos Garcia MD Work Phone: [facility] [employer]05-04-2025 11:25-0400 Respiratory rate27 /minCarlos Garcia MD Work Phone: [facility] [employer] [facility], IncHome LeasingHrynnp98-15-4576 11:25-7017DmC5% (BldA) [Mass fraction]98 %Carlos Garcia MD Work Phone: [facility]05-04-2025 11:25-0400Systolic blood yqomzlqe619 mm[Hg]Carlos Garcia MD Work Phone: [facility]05-02-2025 05:01-0400Body mass index (BMI) [Ratio]44.35 kg/f8FmiorfCarlos Garcia MD Work Phone: [facility]05-02-2025 05:01-0400Body azvyrc945 kgRamarcie Garcia MD Work Phone: [facility]04-27-2025 11:30-0400Body .4 Macey Garcia MD Work Phone: [facility]02-19-2025 12:59-0500Body tcolfzcndwb68.5 [degF]Wild Furlong DO Work Phone: [facility]02-19-2025 12:59-0500 Diastolic blood kvpzhhla84 mm[Hg]Wild Furlong DO Work Phone: [facility]02-19-2025 12:59-0500 Heart rate82 /minDennis Furlong DO Work Phone: [facility]02-19-2025 12:59-0500 Respiratory rate16 /minDennis Furlong DO Work Phone: [facility]02-19-2025 12:59-0500 SaO2% (BldA) [Mass fraction]98 %Wild Furlong DO Work Phone: [facility]02-19-2025 12:59-0500 Systolic blood cjazhijk367 mm[Hg]Wild Furlong DO Work Phone: [facility]10-10-2024 15:18-0400 Body .4 Ismael HART Work Phone: [facility]10-10-2024 15:18-0400Body mass index (BMI) [Ratio]43.79 kg/z4EaprkdnGiuseppe HART Work Phone: [facility]10-10-2024 15:18-0400Body ueiqesyfhpu85.2 [degF]Giuseppe HART Work Phone: [facility]10-10-2024 15:18-0400Body .7 kgGiuseppe HART Work Phone: [facility]10-10-2024 15:18-0400Diastolic blood ciiuzdkd65 mm[Hg]Giuseppe HART Work Phone: [facility]10-10-2024 15:18-0400Heart rate 62 /minGiuseppe HART Work Phone: [facility]10-10-2024 15:18-0400 Respiratory rate18 /minGiuseppe HART Work Phone: [facility]10-10-2024 15:18-2725RoT8% (BldA) [Mass fraction]95 %Giuseppe HART Work Phone: [facility]10-10-2024 15:18-0400Systolic blood qhxaktzu748 mm[Hg]Giuseppe HART Work Phone: [facility] Ekfxxr40-29-8544 08:24-0400Body xrdmqe076.4 cmDenlewis Centeno DO Work Phone: [facility]09-09-2024 08:24-0400Body mass index (BMI) [Ratio]42.89 kg/f9Dtrrwc Furlong DO Work Phone: [facility] Rgunra65-27-5345 08:24-0400Body yawvujydrnz06.49 [degF]Wild Centeno DO Work Phone: [facility] Uyaown64-56-3657 08:24-0400Body .61 kgDennis Furlong DO Work Phone: [facility] [employer] Fxbnte50-89-1564 08:24-0400Diastolic blood wlpcibbz36 mm[Hg]Wild Furlong DO Work Phone: [facility] [employer] Nihefl94-82-2557 08:24-0400Heart rate 57 /minDdonnieis Furlong DO Work Phone: [facility] [employer] Ckkfqt05-34-5878 08:24-0400 Respiratory rate18 /minDdonnieis Furlong DO Work Phone: [facility] [employer] Uihjei86-48-3089 08:24-0938QqW7% (BldA) [Mass fraction]98 %Wild Furlong DO Work Phone: [facility] [employer] Umhbce40-71-3599 08:24-0400Systolic blood yqptwwjn445 mm[Hg]Wild Furlong DO Work Phone: [facility] [employer] Wwbanh35-77-0506 11:03-0400Body smxovz854.4 cmDennis Furlong DO Work Phone: [facility] [employer] Pvszun61-71-4065 11:03-0400Body mass index (BMI) [Ratio]42.11 kg/e0Wqcvtx Furlong DO Work Phone: [facility] [employer] Dmnlux65-67-1218 11:03-0400Body scipgx54.8 kgDennis Furlong DO Work Phone: [facility] [employer] Bprbmb33-67-3067 11:03-0400Diastolic blood rfydsiva47 mm[Hg]Wild Furlong DO Work Phone: [facility] [employer] Kplfbi06-24-6355 11:03-0400Systolic blood exhbtcsa731 mm[Hg]Wild Furlong DO Work Phone: [facility] [employer] Xjqpgh37-52-6087 10:39-0500Body zgwgar071.4 cmDennis Meganlong DO Work Phone: [facility]03-06-2024 10:39-0500Body mass index (BMI) [Ratio]41.81 kg/o6Xdhztn Furlong DO Work Phone: [facility]03-06-2024 10:39-0500Body kyagfdqlrko53.2 [degF]Wild Pendletonlong DO Work Phone: [facility]03-06-2024 10:39-0500Body ietpia71.11 kgDennis Meganlong DO Work Phone: [facility]03-06-2024 10:39-0500Diastolic blood bbaalhtc32 mm[Hg]Wild Pendletonlong DO Work Phone: [facility]03-06-2024 10:39-0500Heart rate 65 /minDennis Meganlong DO Work Phone: [facility]03-06-2024 10:39-9712FoK7% (BldA) [Mass fraction]92 %Wild Pendletonlong DO Work Phone: [facility]03-06-2024 10:39-0500Systolic blood jifuzern061 mm[Hg]Wild Pendletonlong DO Work Phone: [facility]02-16-2024 09:37-0500Body .4 cmDenlewis Pendletonlong DO Work Phone: [facility]02-16-2024 09:37-0500Body mass index (BMI) [Ratio]41.46 kg/q6Tkdctv Meganlong DO Work Phone: [facility]02-16-2024 09:37-0500Body tnpsokvbwvi00.49 [degF]Wild Pendletonlong DO Work Phone: [facility]02-16-2024 09:37-0500Body .3 kgDennis Meganlong DO Work Phone: [facility]02-16-2024 09:37-0500Diastolic blood ncevsose85 mm[Hg]Wild Furlong DO Work Phone: [facility]02-16-2024 09:37-0500Heart rate 65 /minDennis Furlong DO Work Phone: [facility]02-16-2024 09:37-4861MwX1% (BldA) [Mass fraction]95 %Wild Furlong DO Work Phone: [facility]02-16-2024 09:37-0500Systolic blood unurvood753 mm[Hg]Wild Furlong DO Work Phone: [facility]02-08-2024 10:17-0500Body xlbwjo911.4 cmDO Wild Furlong Work Phone: [facility]02-08-2024 10:17-0500 Body mass index (BMI) [Ratio]41 kg/m2DO Wild Furlong Work Phone: [facility]02-08-2024 10:17-0500 Body cuzctgtbfmp71.3 [degF]DO Wild Furlong Work Phone: [facility]02-08-2024 10:17-0500 Body lpalal08.25 kgDO Wild Furlong Work Phone: [facility]02-08-2024 10:17-0500 Diastolic blood rfoszeru10 mm[Hg]DO Wild Furlong Work Phone: [facility]02-08-2024 10:17-0500 Heart rate55 /minDO Wild Furlong Work Phone: [facility]02-08-2024 10:17-0500 Respiratory rate16 /minDO Wild Furlong Work Phone: [facility]02-08-2024 10:17-0500 Systolic blood mm[Hg]DO Wild Furlong Work Phone: [phone])302-[address] [place], [place] 8512010-05-2023 10:23-0400 Body dwmozhuncwy29.2 [degF]DO Wild Furlong Work Phone: [phone])[address] [place], [place] 7055810-05-2023 10:23-0400 Body efwcoz73.79 kgDO Wild Furlong Work Phone: [address] [place], [place] 8800710-05-2023 10:23-0400 Diastolic blood iwrrslfr94 mm[Hg]DO Wild Furlong Work Phone: [address] [place], [place] 8800710-05-2023 10:23-0400 Heart rate56 /minDO Wild Furlong Work Phone: [address] [place], [place] 8800710-05-2023 10:23-0400 Respiratory rate16 /minDO Wild Furlong Work Phone: 1419)[facility] [place], [place] 8512010-05-2023 10:23-0400 SaO2% (BldA) [Mass fraction]95 %DO Wild Furlong Work Phone: [address] [place], [place] 8800710-05-2023 10:23-0400 Systolic blood yqnahosv973 mm[Hg]DO Wild Furlong Work Phone: [address] [place], [place] 8800706-07-2023 09:19-0400 Body doyijnttkzz39.9 [degF]DO Wild Furlong Work Phone: 1419[facility] [place], [place] 8512006-07-2023 09:19-0400 Body opcuzs40.33 kgDO Wild Furlong Work Phone: [address] [place], [place] 8800706-07-2023 09:19-0400 Diastolic blood lqgjnauo57 mm[Hg]DO Wild Furlong Work Phone: [phone])320-[address] [place], [place] 8512006-07-2023 09:19-0400 Heart rate64 /minDO Wild Furlong Work Phone: [phone]06-07-2023 09:19-0400 Respiratory rate16 /minDO Wild Furlong Work Phone: 1(605)246-[address] [place], [place] 8512006-07-2023 09:19-0400 SaO2% (BldA) [Mass fraction]97 %DO Wild Furlong Work Phone: 1419)773-[address] [place], [place] 8512006-07-2023 09:19-0400 Systolic blood wwyqgajv754 mm[Hg]DO Wild Furlong Work Phone: 1(667)[address] [place], [place] 7055811-17-2022 08:25-0500 Body rsgnrhmupmg20.8 [degF]DO Wild Furlong Work Phone: 1(260)[address] [place], [place] 8800711-17-2022 08:25-0500 Body asjtls22.9 kgDO Wild Furlong Work Phone: 1(665)[address] [place], [place] 8800711-17-2022 08:25-0500 Diastolic blood hxyygkjt88 mm[Hg]DO Wild Furlong Work Phone: 1(773)[address] [place], [place] 7055811-17-2022 08:25-0500 Heart rate68 /minDO Wild Furlong Work Phone: 1(668)[address] [place], [place] 8800711-17-2022 08:25-0500 Respiratory rate16 /minDO Wild Furlong Work Phone: 1(332)[facility] [place], [place] 8512011-17-2022 08:25-0500 SaO2% (BldA) [Mass fraction]94 %DO Wild Furlong Work Phone: 1(573)[address] [place], [place] 8800711-17-2022 08:25-0500 Systolic blood yvwkqxrp451 mm[Hg]DO Wild Furlong Work Phone: 1(076)[address] [place], [place] 8800708-25-2022 10:32-0400 Body nzhswjkjevh35.8 [degF]DO Wild Furlong Work Phone: 1(129)[address] [place], [place] 8800708-25-2022 10:32-0400 Body .33 kgDO Wild Furlong Work Phone: 1(123)[address] [place], [place] 8800708-25-2022 10:32-0400 Diastolic blood djwjeotm23 mm[Hg]DO Wild Furlong Work Phone: 1(830)[address] [place], [place] 7055808-25-2022 10:32-0400 Heart rate55 /minDO Wild Furlong Work Phone: 1(083)[address] [place], [place] 8800708-25-2022 10:32-0400 Respiratory rate16 /minDO Wild Furlong Work Phone: 1(368)[address] [place], [place] 8800708-25-2022 10:32-0400 SaO2% (BldA) [Mass fraction]98 %DO Wild Furlong Work Phone: 1(141)[address] [place], [place] 8800708-25-2022 10:32-0400 Systolic blood riofzmvb773 mm[Hg]DO Wild Furlong Work Phone: 1(751)[address] [place], [place] 8800705-25-2022 13:24-0400 Body cwnnusyvhcf66 [degF]DO Wild Furlong Work Phone: 1(036)[address] [place], [place] 8800705-25-2022 13:24-0400 Body kqklit23.42 kgDO Wild Furlong Work Phone: 1(496)[address] [place], [place] 8800705-25-2022 13:24-0400 Diastolic blood xbeenkcr02 mm[Hg]DO Wild Furlong Work Phone: 1(228)[address] [place], [place] 8800705-25-2022 13:24-0400 Heart rate62 /minDO Wild Furlong Work Phone: 1(677)[address] [place], [place] 8800705-25-2022 13:24-0400 Respiratory rate16 /minDO Wild Furlong Work Phone: 1(559)[facility] [place], [place] 8512005-25-2022 13:24-0400 SaO2% (BldA) [Mass fraction]96 %DO Wild Furlong Work Phone: [facility]05-25-2022 13:24-0400 Systolic blood ahkpkyth518 mm[Hg]DO Wild Furlong Work Phone: [facility]11-25-2020 10:47-0500 Body equnbe923.99 cmDO Wildlewis Pendletonlong Work Phone: [facility]02-05-1951 00:00-0500 >na<Obdulio Jacksonept. of Dermatology Encounters Encounter DateEncounter TypeCare ProviderFacilityStart: 08-12-2025 End: 70-45-7129xckojdvzbfYqfpe M. LueFacility:[facility]ITALtart: 08-07-2025 End: 99-76-8746IlzuivFfwoase Boggs CMAProMedica Physicians Internal Medicine - Family MedicineComment on above: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 ([facility])Start: 08-06-2025 End: 83-69-0868EezwavJuffbx G Furlong DO Work Phone: [facility] - Family MedicineComment on above: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 ([facility])Start: 07-30-2025 End: 96-76-2030Nrqpyojfp to same day surgery Rabia Fragoso MD-[facility]gery [facility] CenterStart: 07-30[facility]2025 End: 69-40-9547rzrcsgnirbUoedee Furlong DO Work Phone: [facility] Work Phone: Start: 07-29-2025 End: 55-99-6141Vdnnnf OnlyDennis G Furlong DO Work Phone: [facility] - Family MedicineStart: 07-19-2025 End: 77-26-1724Ojxzjx OnlyDennis G Furlong DO Work Phone: [facility] - Family MedicineComment on above:Degeneration of intervertebral disc of lumbar region with discogenic back pain (Primary Dx)Start: 07-17-2025 End: 28-52-3345Gbvuzj outpatient visit 25 minutesWild Centeno DO Work Phone: [facility] - Family MedicineComment on above: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 ([facility]) (Primary Dx); Degeneration of intervertebral disc of lumbar region with discogenic back pain; Morbid obesity ([facility])Start: 07-17-2025 End: 08-50-1959idebczymowXXARPWNorth [facility]urban Medical Center Ambulatory PPGStart: 07-16-2025 End: 31-83-9668Msbkuht encounter procedureShavon Fragoso MDOY-Xod-Xoxsoijo Testing Work Phone: Start: 07-16-2025 End: 43-96-9217xjunhsjipsJuudhd Furjorje DO Work Phone: [facility] Work Phone: Start: 08-78-8275Swyhdncbs for preprocedural laboratory examinationShavon Conner [facility] GroupStart: 07-04-2025 End: 04-42-5164Jsddiy OnlyWild Centeno DO Work Phone: [facility] - Family MedicineStart: 06-27-2025 End: 96-49-4985cscrfxldyvZZHQRPQ [facility] Systemtart: 06-19-2025 End: 82-77-6493oogmfuxpulKacco M. LueFacility:EU BellevueStart: 06-19-2025 End: 17-47-1974Whgomda encounter procedureShavon Mustafa [facility] start: 06-18-2025 End: 96-13-2693Vrjvajssa encounterOrders Support User [facility] - Sleep DisordersComment on above: Sleep Lab (Pap Order)Start: 06-17-2025 End: 50-29-6421ryeqpaslmtHJILE Daniela [facility] Ambulatory PPGStart: 06-17-2025 End: 23-64-1679Hztctu outpatient new 45 minutesMarie Gray MD Work Phone: [facility] Pul[facility]/Sleep MedicineComment on above:RONEN (obstructive sleep apnea) (Primary Dx); Class 3 severe obesity due to excess calories with serious comorbidity and body mass index (BMI) of40.0 to 44.9 in adult ([facility]); Essential hypertension, benign; NocturiaStart: 06-11-2025 End: 27-21-6610Eukbyvt encounter Cristy Fragoso MD-Ultrasound [facility] Work Phone: Start: 06-11-2025 End: 80-58-3020cuvpnoizsmTfazss Furng DO Work Phone: [facility] Work Phone: Start: 05-20-2025 End: 85-63-1554Cravesven encounterAbval Horton MD Work Phone: [facility]/Sleep MedicineStart: 05-15-2025 End: 01-31-4699KccbaiNmhbdr G Furlong DO Work Phone: [facility] - Family MedicineStart: 05-14-2025 End: 23-61-7797Fytaee outpatient visit 25 minutesWild Dent Megandesing DO Work Phone: [facility] - Family MedicineComment on above:History of cholecystectomy (Primary Dx); Diarrhea, unspecified type; Morbid obesity ([facility]); Lumbar spondylosisStart: 05-14-2025 End: 23-03-9646cmhmwishebNTEKGVImmanuel Medical Center Ambulatory PPGStart: 05-07-2025 End: 57-15-9717Qffklkot SupportDennis G Meganlong DO Work Phone: [facility] - Sleep Disorders Comment on above:Hypersomnia; Excessive daytime sleepinessStart: 05-03-2025 End: 64-33-0200Bvdspuesm encounterGenny ValdovinosZanesville City Hospital CenterComment on above:ResultsStart: 05-03-2025 End: 04-93-8788Fsyrnu outpatient visit 25 [facility] Associationangel Ansari WOMEN'S HEALTH CARE NURSE PRACTITIONER-ARTERIAL EMBALMER Work Phone: [facility] Physicians Internal Medicine - Family MedicineComment on above:S/P cholecystectomy (Primary Dx); Type 2 diabetes mellitus with stage 2 chronic kidney disease, with long-term current use of insulin([facility]); Localized swelling of left foot; Irregular heart beat; Other post infection and related fatigue syndromes; Abnormal CBC; Morbid obesity ([facility]); Excessive daytime sleepinessStart: 05-03-2025 End: 22-71-1110idtrfceukvXVYVYUSt. [facility]'s [facility] Ambulatory PPGStart: 04-30-2025 End: 53-72-8907Qbsewrpot encounterDenlewis Dent Furlong DO Work Phone: [facility] Division of [facility] - Sleep DisordersComment on above:Sleep Lab (PSG)Start: 04-29-2025 End: 02-78-8332Oaaruv OnlyDenlewis Dent Furlong DO Work Phone: [facility] Physicians Internal Medicine - Family MedicineComment on above:Hypersomnia (Primary Dx); Excessive daytime sleepinessStart: 04-25-2025 End: 51-05-2121Ijkfcfbwn encounterDenlewis Dent Furlong DO Work Phone: [facility] - Sleep Disorders Comment on above:Sleep Lab (HST)Start: 04-24-2025 End: 98-15-9281Bqooaxqbvjlt care manage srvc 14 day dischargeDennis G Furlong DO Work Phone: [facility] Physicians Internal Medicine - Family MedicineComment on above:S/P laparoscopic cholecystectomy (Primary Dx); Morbid obesity ([facility]); Hypersomnia; Type 2 diabetes mellitus with stage 2 chronic kidney disease, with long-term current use of insulin([facility]); Physical deconditioning; Screening for depressionStart: 04-24-2025 End: 41-73-7675pqiqwrzuliDNSRQIImmanuel Medical Center Ambulatory PPGStart: 04-15-2025 End: 01-49-8168Pxirwkdou encounterChelsi Dee RN Work Phone: [facility] Internal Medicine - Family MedicineComment on above:Transition Of CareStart: 04-10-2025 End: 60-68-1830Ytqpgocegp and management of inpatientStesusanne Cline MD Work Phone: stvZ Onc/Med SurgComment on above:Acute cholecystitis due to biliary calculus (Primary Dx); CholecystitisStart: 04-07-2025 End: 65-21-1232YdnmfbJtdwes G Furlong DO Work Phone: [facility] - Family MedicineStart: 03-27-2025 End: 41-37-4298FdeqixQimwzm Gullett [facility] - Family MedicineStart: 03-26-2025 End: 33-64-6010ngivrkxzlzBZNIKJMSycamore Medical Centertart: 03-21-2025 End: 60-81-8018Kbcdbpjhbxoh care manage srvc 14 day dischargeDCHRISTUS [facility] DO Work Phone: [facility] - Family MedicineComment on above:Acute cholecystitis (Primary Dx); Essential hypertension; Hypokalemia; Type 2 diabetes mellitus with stage 3a chronic kidney disease, with long-term current use of insulin ([facility]); Morbid obesity ([facility]); 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 ([facility])Start: 03-21-2025 End: 12-51-8948ndewefhbfiEXMOLSImmanuel Medical Center Ambulatory PPGStart: 03-13-2025 End: 88-68-3050Ejnozpznn Payal Campbell CMARutland Regional Medical CenterMedica [facility] Internal Medicine - Family MedicineStart: 03-11-2025 End: 41-24-3184Blzkvgaty encounterChelsi Dee RN Work Phone: [facility] Internal Medicine - Family MedicineComment on above:Transition Of CareStart: 03-03-2025 End: 99-32-3101Nzyudcxeut and management of inpatientRaheel Jose JUAREZ Work Phone: stvz 4B StepdownStart: 03-03-2025 End: 88-20-5105kaudlwhnkbSgfqqo Furlong DO Work Phone: [facility] Work Phone: Start: 03-03-2025 End: 93-96-7381Vsqbjaaz ReferredDennis Furlong DO Work Phone: [facility]-LAB Path Spec [facility] HospStart: 02-19-2025 End: 00-23-0154btwexwzqvgKOAKPQPMount Carmel Health Systemtart: 02-12-2025 End: 89-21-1612OtofzwQekgxf G Furlong DO Work Phone: [facility] - Family MedicineStart: 02-08-2025 End: 14-73-8850XxcwyjHvagmu G Furlong DO Work Phone: [facility] - Family MedicineStart: 01-17-2025 End: 96-94-3430yqpcbkpqpoPAYFKLXSycamore Medical Centertart: 01-16-2025 End: 28-00-3824fhftddwreiLkf ReeseFacility:EU [place]vueStart: 01-07-2025 ambulatoryAmy ReeseFacility:EU [place]vueStart: 01-03-2025 End: 01-81-3179zynlrupzdoXCVCKFGSycamore Medical Centertart: 01-30-8672zfkayyyrmiGuh ReeseFacility:EU [place]kyStart: 30-23-5421Grelijhqpa RecurringDennis Furlong DO Work Phone: [facility]-Cancer Center Acute Work Phone: Start: 12-26-2024 End: 29-19-1789kciwvzkhxwYmndgi Furlong DO Work Phone: [facility] Work Phone: Start: 12-26-2024 End: 57-81-1120Cvzrskt encounter procedureDennis Furlong DO Work Phone: [facility] Work Phone: Start: 12-11-2024 End: 16-14-5799Hwefdrhx Result EncounterRose Ohara MD Work Phone: noms External Department UnsolicitedStart: 12-11-2024 End: 82-13-9750Hievlrei Result EncounterRose Ohara MD Work Phone: noms External Department UnsolicitedStart: 08-20-2024 End: 97-39-1540GhtmkoBvufke G Furlong DO Work Phone: [facility] - Family MedicineComment on above: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 ([facility])Start: 08-16-2024 End: 77-17-7997Jlgwqz outpatient visit 15 minutesButlerchristina RochaSt. [facility] Work Phone: [facility] - Family MedicineComment on above:Lumbar paraspinal muscle spasm (Primary Dx); Lumbar back pain; Need for influenza vaccinationStart: 08-16-2024 End: 62-15-1496lceolyxchwQJBUGGCDeer Park Hospital Ambulatory PPG Start: 07-18-2024 End: 48-34-8677Oniujq OnlyDennis G Meganlong DO Work Phone: [facility] - Family MedicineStart: 07-16-2024 End: 59-01-8165ldsbpjqndhWCTHIR G FURLONGProAultman Orrville Hospitalca [facility] Centertart: 07-16-2024 End: 72-53-2221Ixtdix outpatient visit 25 minutesDennis G Furlong DO Work Phone: [facility] - Family MedicineComment on above: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 ([facility]) (Primary Dx); Type 2 diabetes mellitus with stage 3a chronic kidney disease, with long-term current use of insulin ([facility]); Enlarged pituitary gland ([facility]); Morbid obesity ([facility])Start: 06-14-2024 End: 91-52-0296Ruiawo OnlyWild Dent Furlong DO Work Phone: [facility] - Family MedicineStart: 06-13-2024 End: 20-98-4566Fapxmwggw encounterNicjensen Virgilio [facility] - Family MedicineStart: 06-07-2024 End: 36-14-5619kacxoypbtgSDFQMJ G MEGANLONGProtestant Deaconess Hospitaltart: 05-22-2024 End: 35-91-7529Icqqnu OnlyDennis G Furlong DO Work Phone: [facility] - Family MedicineComment on above:Encounter for screening mammogram for malignant neoplasm of breast (Primary Dx)Start: 05-17-2024 End: 30-72-2009AigmzoFrfwdr G Furlong DO Work Phone: [facility] - Family MedicineComment on above: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 ([facility])Start: 05-14-2024 End: 25-99-0250FrkqpyBsvxcm G Furlong DO Work Phone: [facility] - Family MedicineStart: 03-20-2024 End: 42-15-3190Qxdojeo encounter procedureDennis G Furlong DO Work Phone: [facility] - Family MedicineComment on above:Medicare annual wellness visit, subsequent (Primary Dx); Screening for depressionStart: 02-14-2024 End: 72-06-6060OtwwnnEkjxwd G Furlong DO Work Phone: [facility] Internal [facility] - Family MedicineStart: 31-54-1580BpqpbvSewkEdie PRADO Work Phone: [facility] - [facility] MedicineStart: 72-34-2603Siyjvv OnlyWild Centeno DO Work Phone: [facility] Internal [facility] - [facility] Hospitaltart: 01-11-2024 End: 99-07-6230vmhrkejowyXYYQIKWarren FoyKindred Hospital Daytontart: 01-11-2024 End: 89-60-5392Hgtuiy outpatient visit 25 minutesWild Centeno DO Work Phone: [facility] - [facility] HospitalComment on above:Type 2 diabetes mellitus with stage 3a chronic kidney disease, with long-term current use of insulin ([facility]) (Primary Dx); Gout, unspecified cause, unspecified chronicity, unspecified site; Mixed hyperlipidemia; Morbid obesity ([facility]); 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 ([facility])Start: 12-28-2023 End: 64-15-6394ghgmsjsvrhEVNXGIN KELBLEYNot AvailableStart: 12-26-2023 End: 87-66-4781jcoxwkqftvYBFXEOY KELBLEYNot AvailableStart: 88-97-1353Utzffi Wild Centeno DO Work Phone: [facility] - [facility] Hospitaltart: 12-23-2023 End: 14-81-1302Ugjply outpatient visit 15 minutesWild Centeno DO Work Phone: [facility] - [facility] HospitalComment on above:Acute gout due to renal impairment involving toe of right foot (Primary Dx); 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 ([facility])Start: 12-21-2023 End: 51-43-3659usnlzziehdZWUPMVQ KELBLEYNot AvailableStart: 12-21-2023 End: 33-35-5066Aiodmgcjt to same day surgery Sachin Haro PTANOMS CI PT Comment on above:Aftercare following left knee joint replacement surgery (Primary Dx); Acute pain of left knee; Stiffness of left knee; Primary osteoarthritis of left kneeStart: 12-21-2023 End: 33-56-6421ntlwalgghfEaqpnfg Kelbley PTANOMS CI PTStart: 24-36-5134Vzuqyv flowsheetZabrina Byersy PTANOMS CI PTStart: 68-93-0507Khmuce flowsheetZabrina Byersy PTANOMS CI PTStart: 12-19-2023 End: 30-10-7964Ryzxnvjfl to same day surgery centerShan Haskins PTANOMS CI PTComment on above:Aftercare following left knee joint replacement surgery (Primary Dx); Acute pain of left knee; Stiffness of left knee; Primary osteoarthritis of left kneeStart: 12-19-2023 End: 80-68-5886hfcbhbnwenKuqkdqu Lawrence PTANOMS CI PTStart: 81-13-7022Bkwkfo flowsSherrell Haskins PTANOMS CI PTStart: 28-81-8619Yahbuj Gorge Haskins PTANOMS CI PTStart: 12-15-2023 End: 63-43-6417mbohajtofpEI Wild Furlong Work Phone: [facility] Work Phone: Start: 12-15-2023 End: 58-11-8147Fehfhrh encounter procedureDO Wild [facility]long Work Phone: [facility] Work Phone: Start: 02-41-7099Lbzrqsscuy RecurringDO Wild Furlong Work Phone: [facility] Work Phone: Start: 12-14-2023 End: 18-18-4651zpimkvroomLPKISRC KELBLEYNot AvailableStart: 12-14-2023 End: 05-72-0812Ilkoxegeo to same day surgery centerZabrina Haro PTANOMS CI PT Comment on above:Aftercare following left knee joint replacement surgery (Primary Dx); Acute pain of left knee; Stiffness of left knee; Primary osteoarthritis of left kneeStart: 12-14-2023 End: 46-02-6977wogembrirzZarfhug Kelbley PTANOMS CI PTStart: 77-71-0996Oaxumg flowsheetMelissa Kelbley PTANOMS CI PTStart: 52-58-9480Vwprdp flowsheetMelissa Janeyy PTANOMS CI PTStart: 02-43-1135Fakwaztqph RecurringDO Wild Pendletonlong Work Phone: [facility]-Cancer [facility] Acute Work Phone: Start: 12-13-2023 End: 18-08-9753npfrmybzeiSK Wild Pendletonlong Work Phone: [facility] Work Phone: Start: 12-13-2023 End: 41-88-3246Hankjzi encounter procedureDO Wild Pendletonjorje Work Phone: [facility]-Lab Main [place] Work Phone: Start: 2023 End: 40-92-4919ecuqzppdaeQMAARMY KELBLEYNot AvailableStart: 12-07-2023 End: 19-40-0472ogrwwmareuATAOXFZ KELBLEYNot AvailableStart: 12-05-2023 End: 58-40-4382telwicwshsECYXVKC KELBLEYNot AvailableStart: 12-02-2023 End: 27-40-7937hwzfzacxwnLNJZCCB KELBLEYNot AvailableStart: 11-30-2023 End: 47-30-5264oonknaflytGFKSQDQ KELBLEYNot AvailableStart: 11-25-2023 End: 78-45-4955tmdnynmgxhTGHIKSG KELBLEYNot AvailableStart: 11-23-2023 End: 70-50-2944zcsznowolqGYABEUC KELBLEYNot AvailableStart: 11-21-2023 End: 35-04-0201glujejnrkdCAQQTXT KELBLEYNot AvailableStart: 11-09-2023 End: 91-87-9064deabymamrbUvauou Eugene Havens MDFacility:[facility] HospitalStart: 11-08-2023 End: 68-25-0204zkcjisxkzfIJCUDUM KELBLEYNot AvailableStart: 11-04-2023 End: 76-17-4163awndaqysouDHYEHCN KELBLEYNot AvailableStart: 11-02-2023 End: 73-99-5612gmmdzlkhhgMOFCXPS KELBLEYNot AvailableStart: 11-01-2023 End: 18-70-0279hxswhzqkgjWPJJMIK KELBLEYNot AvailableStart: 10-28-2023 End: 57-48-5800elolhabxhtVSMDJCEG BRINKNot AvailableStart: 10-26-2023 End: 23-66-6977puhedcwtkkMQCAITQZ BRINKNot AvailableStart: 10-24-2023 End: 39-63-9614ugxjkreejzHOHGDX Daniela LOPEZTONNot AvailableStart: 10-03-2023 End: 25-65-8178obpjuosporNNAXMX [facility] HospitalStart: 09-26-2023 End: 52-50-0183yuhqwrewznOLBOJQ Daniela YUNot AvailableStart: 09-08-2023 End: 58-25-5466tycrfziaewJQXFBD [facility] HospitalStart: 08-11-2023 End: 67-13-5025yapdpbmxqgRI Wild Furlong Work Phone: [facility] Work Phone: Start: 08-11-2023 End: 42-73-4964Ebxocvcrhv RecurringDO Wild Furlong Work Phone: [facility] Work Phone: Start: 04-13-2023 End: 28-36-2658mavbdpjbwiDE Wild Furlong Work Phone: [facility] Work Phone: Start: 04-13-2023 End: 76-06-5206Hpjtlxnwhu RecurringDO Wild Furlong Work Phone: [facility] Work Phone: Start: 03-03-2023 End: 06-17-5891topwvcdcanYDKGLI G FURLONGFacility:Z4Srbdp: 09-23-2022 End: 16-29-8846bwjpyxwnnwYH Wild Furlong Work Phone: [facility] Work Phone: Start: 09-23-2022 End: 92-40-4921Xymmhdhbkw RecurringDO Wild Furlong Work Phone: [facility]-Cancer CenterStart: 08-26-2022 End: 26-68-2177jhfojmvthyGVNKJQ G FURLONGFacility:U6Pxqgr: 08-11-2022 End: 15-37-4244akzzmperreHEDTLY G FURLONGFacility:Z4Scwpp: 07-01-2022 End: 27-84-0424Avlburnaaf RecurringDO Wild Furlong Work Phone: [facility]-Cancer CenterStart: 04-29-2022 End: 02-68-6463agbfxwsqssNHCBOLC ALGHOTHANIFacility:R7Kfltj: 03-31-2022 End: 41-40-0583Srowuuealq RecurringDO Wild Furlong Work Phone: [facility]-Cancer CenterStart: 18-05-5645Tdlfjxrulrafael Diaz. of Dermatology Procedures DateProcedureProcedure DetailPerforming ClinicianStart: 43-52-0794Cofkabomlu Wild Furlong DO Work Phone: Start: 40-20-9413Iwscamenkm glycosylated f7eHccngw G Furlong DO Work Phone: Start: 83-83-2728Huibn depression screening assessment Wild Furlong DO Work Phone: Start: 72-01-4334Dnsee cultureDennis Furlong DO Work Phone: Start: 62-68-5370Tuejqlmmxjnizpy of bilateral kidneys Wild Furlong DO Work Phone: Start: 6372Ugknb depression screening assessment Wild Furlong DO Work Phone: Start: 05-21-4358Iog routine ecg w/least 12 lds w/i&r Sarah Ansari WOMEN'S HEALTH CARE NURSE PRACTITIONER-ARTERIAL EMBALMER Work Phone: Start: 28-10-3284Zszgyz-up visitFollow-upBRANGEL ANSARIStart: 14-70-5942Veirz depression screening assessmentaSrah Ansari WOMEN'S HEALTH CARE NURSE PRACTITIONER-[employer]IAL EMBALMER Work Phone: Start: 42-50-6839Nynld depression screening assessment Wild Centeno DO Work Phone: Start: 95-04-0474Wauycme blood reagent stripSlauren Cline MD Work Phone: Start: 04-13-2025 End: 25-44-6122Ppcqy metabolic panel calcium totalSarah Bhatt MD Work Phone: Start: 10-69-8826OYFB O2 EVAL (DESATURATION SCREEN) Herrera Merlos DO Work Phone: Start: 63-43-4583Ndzkpsd blood reagent stripSlauren Cline MD Work Phone: Start: 27-51-2780Citfccs blood reagent stripSlauren Cline MD Work Phone: Start: 19-13-7718IRZCV METABOLIC PANEL W/ REFLEX TO MG FOR LOW KKelly Vidal Arturo WOMEN'S HEALTH CARE NURSE PRACTITIONER - [employer] EMBALMER Work Phone: Start: 69-98-4767Nqgwjpr blood reagent stripSlauren Cline MD Work Phone: Start: 52-07-1170Vzduxkffmt exam chest single view Herrera Andres Alvarenga DO Work Phone: Start: 65-76-9410UGSE O2 EVAL (DESATURATION SCREEN) Radha Morris WOMEN'S HEALTH CARE NURSE PRACTITIONER - [employer] EMBALMER Work Phone: Start: 54-20-5855Mxthy metabolic panel calcium total Sarah Bhatt MD Work Phone: Start: 07-30-3501Efkryga blood reagent stripSlauren Cline MD Work Phone: Start: 40-76-8511Nwwyt metabolic panel calcium total Sarah Bhatt MD Work Phone: Start: 22-12-4177Ytigwax function panelSarah Bhatt MD Work Phone: Start: 31-85-6588GMAVTIDR SPECIMENStesusanne Cline MD Work Phone: [phone]: 04-10-2025 End: 15-63-8588Bqokx metabolic panel calcium totalSarah Bhatt MD Work Phone: Start: 04-10-2025 End: 27-78-2286Jeuxzovfjpa surg cholecystectomySteven Vidal Cline MD Work Phone: Start: 65-24-5397Mqsu bld gluc mntr dev cleared fda spec home useStesusanne Cline MD Work Phone: Start: 94-64-5834Ghvnrnppb [Moles/volume] in Serum or PlasmaStgeovanna Cline MD Work Phone: Start: 71-76-7712RPJNZCBM PATHOLOGY REPORTStesusanne Cline MD Work Phone: Start: 01-72-6048Huurlxpqcfysp metabolic panelDenlewis Centeno DO Work Phone: Start: 86-31-9273Brxgm depression screening assessment Wild Centeno DO Work Phone: Start: 07-83-7116Wmokdyq blood reagent stripPiter Weems MDStart: 69-46-3526QFWIQCIUU W/ REFLEX TO MAGNESIUMBatawanda Weems MDStart: 09-27-5883Nbfqycv blood reagent stripPiter Weems MDStart: 09-86-2163Grkeaavwol exam chest 2 Camila Garcia MD Work Phone: Start: 04-50-9767Wkmubxt blood reagent stripPiter Weems MDStart: 08-04-9981Qnjggiyzxarlh metabolic panelNicholas Elías DO Work Phone: Start: 45-12-8335Yaalcrx blood reagent stripBatawanda Weems MDStart: 19-33-0676Mmozcrc blood reagent stripPiter Weems MDStart: 84-39-9726Piumicb blood reagent stripPiter Weems MDStart: 03-09-2025 End: 09-99-3844Lseqevepeehzh metabolic panelNicholas Elías DO Work Phone: Start: 21-95-8729Ajvyncd blood reagent stripNicholas Elías DO Work Phone: Start: 01-36-6805Gitferm blood reagent stripNicholas Elías DO Work Phone: Start: 46-99-9857Ppnheom blood reagent stripNicholas Elías DO Work Phone: Start: 03-08-2025 End: 09-64-1388Wimww of magnesiumGeorge Iannantuono DO Work Phone: Start: 94-59-8714RBHCB METABOLIC PANEL W/ REFLEX TO MG FOR LOW KGeorge Iannantuono DO Work Phone: Start: 05-60-2236Fkvukdr function panelGeorge Iannantuono DO Work Phone: Start: 63-02-6798Mofybhj blood reagent stripCarlos Garcia MD Work Phone: Start: 44-85-4488Vunuboi blood reagent stripCarlos Garcia MD Work Phone: Start: 45-72-1045Ffqvnud blood reagent stripCarlos Garcia MD Work Phone: Start: 94-10-9668Dstayks ionizedMootilio Louis MD Work Phone: Start: 98-61-0760Cczmtuk blood reagent stripCarlos Garcia MD Work Phone: Start: 27-45-8645Eerlc of magnesiumGeorge Iannantuono DO Work Phone: Start: 55-15-4896NAOFP METABOLIC PANEL W/ REFLEX TO MG FOR LOW KGeorge Iannantuono DO Work Phone: Start: 27-89-3689Ojuijxm blood reagent stripCarlos Garcia MD Work Phone: Start: 61-65-7509Ceaminl blood reagent stripCarlos Garcia MD Work Phone: Start: 30-80-1131Gycpniy blood reagent stripCarlos Garcia MD Work Phone: Start: 03-06-2025 End: 36-96-1320Ncfiq of magnesiumGeorge Iannantuono DO Work Phone: Start: 09-70-8487ZJZGX METABOLIC PANEL W/ REFLEX TO MG FOR LOW KGeorge Iannantuono DO Work Phone: Start: 84-71-0061Crlbikd blood reagent stripCarlos Garcia MD Work Phone: Start: 77-79-4852Acgkecq blood reagent stripCarlos Garcia MD Work Phone: Start: 83-51-0239Iatjdalthw exam upr gi trc single contrast studyHaleigh Bunch PA-C Work Phone: Start: 77-78-9680Lrhkvim blood reagent stripCarlos Garcia MD Work Phone: Start: 59-50-5561Tmchcig blood reagent stripCarlos Garcia MD Work Phone: Start: 23-97-0578Aporiwjyof exam abdomen 1 viewGeorge Iannantuono DO Work Phone: Start: 03-05-2025 End: 34-78-8906Sorrf of Asim Reynolds MD Work Phone: Start: 02-51-0966KPSRCEYY BLOOD GAS, POCCarlos Garcia MD Work Phone: Start: 80-36-1852HOXRBL ACID,POINT OF CARECarlos Garcia MD Work Phone: Start: 07-34-8574Fesnvrlebz exam chest single view Yesenia Santo MD Work Phone: Start: 85-63-4093Vmk routine ecg w/least 12 lds i&r onlyGeorge Iannantuono DO Work Phone: Start: 11-45-5397Rkllo of troponin Barak Erwin DO Work Phone: Start: 73-83-0285Tjssyxy blood reagent stripCarlos Garcia MD Work Phone: Start: 10-58-8367Hifhunz echo study ProcedureNino Bowling MD Work Phone: Start: 81-90-3824Snt prsmptv pthgnc organism scrn w/colony estimjCarlos Garcia MD Work Phone: Start: 23-50-9065Fmtvgne blood reagent stripCarlos Garcia MD Work Phone: Start: 28-66-1559Blsusynvyajuvxc prq w/imaging & catheter plmtHayley E Rogers DO Work Phone: Start: 43-00-2633Igsjznysa serum plasma/whole bloodGale Erwin DO Work Phone: Start: 03-04-2025 End: 24-19-4083Smrax of troponin quantitativeGale Erwin DO Work Phone: Start: 57-82-0483Cktvdrr blood reagent stripCarlos Garcia MD Work Phone: Start: 67-47-8059Otenlel blood reagent stripCarlos Garcia MD Work Phone: Start: 75-84-4651Cpjbc of lactateErin Reynolds MD Work Phone: Start: 63-51-3891Ivnxz metabolic panel calcium total Agustin Recio MD Work Phone: Start: 18-46-0282Slhnbrr blood reagent stripRamarcie Garcia MD Work Phone: Start: 78-85-9039Ys abdominal real time w/image limitedErin Reynolds MD Work Phone: Start: 29-72-4083Hwrxyvf blood reagent stripRamarcie Garcia MD Work Phone: Start: 41-56-1817Zad abdomen w/o contrast material Osiris Rogers DO Work Phone: Start: 03-03-2025 End: 74-86-9495Svvbctv bacterial quanttative colony count urineErin Reynolds MD Work Phone: Start: 46-43-4732Qdsjv s aureus methicillin resist amp probe Xavi Medina MD Work Phone: Start: 69-98-4455Ghdua of magnesiumErin Reynolds MD Work Phone: Start: 09-37-4169JRYZK BANK SPECIMENRamarcie Garcia MD Work Phone: Start: 91-82-7166Yfsjo typing serologic Kana Rogers DO Work Phone: Start: 95-10-5250Ikpvixpnuk exam chest single view Erin Reynolds MD Work Phone: Start: 03-03-2025 End: 35-07-1772Exjogibhhsmxc metabolic panelRamarcie Garcia MD Work Phone: Start: 84-21-6864Jrpmsil bacterial blood aerobic w/id Quinn Reynolds MD Work Phone: Start: 69-23-0045THXMSPY, BLOOD 1Hemelini Rodolfo JUAREZ Work Phone: Start: 08-88-1187Gtg routine ecg w/least 12 lds i&r Bert Reynolds MD Work Phone: Start: 13-21-1219Mxqjzkiw blood count with white cell differential, automatedRose Ohara MD Work Phone: Start: 62-70-6628Chwwddkryjubc metabolic panelRose Ohara MD Work Phone: Start: 29-58-9473Nvwkqhqv tomography of abdomen and pelvis with contrastDennis Furlong DO Work Phone: Start: 33-14-2340UV of thorax with contrastDennis Furlong DO Work Phone: Start: 60-87-2874Xhxchpxi retinal eye examDennis Furlong DO Work Phone: Start: 63-57-8513Exgyg depression screening assessment Giuseppe Jama WOMEN'S HEALTH CARE NURSE PRACTITIONER-ARTERIAL EMBALMER Work Phone: Start: 11-40-5947Nqzlqihrhymx [Mass/volume] in Urine by Test stripDennis Furlong DO Work Phone: Start: 63-89-7836BbdoqppnicmLiujvh Furlong DO Work Phone: Start: 69-58-1954Eakdo depression screening assessment Wild Furlong DO Work Phone: Start: 84-10-2648Fysjd depression screening assessment Wild Furlong DO Work Phone: Start: 25-91-0224Bitmk depression screening assessment Wild Furlong DO Work Phone: start: 15-06-8301Swpwfrwp tomography of abdomen and pelvis with contrastDO Wild Furlong Work Phone: Start: 89-73-7590WF of thorax with contrastDO Wild Furlong Work Phone: Start: 56-43-1486Muijdawjknckxyi of limbDO Wild Furlong Work Phone: Start: 33-99-9362Jubkegrx retinal eye examDennis Furlong DO Work Phone: Start: 43-77-6025Jhzdasboqjdkzdd of limbDO Wild Furlong Work Phone: start: 65-52-6792CejczngwvroCcxfbdk Kelbley PTAStart: 57-75-3621Fzdrhijlnndvztd of limbDO Wild Furlong Work Phone: Start: 42-32-8772Biroocnpzxls [Mass/volume] in Urine by Test stripDennis Meganlong DO Work Phone: Start: 21-59-4266Oyxsjcxr tomography of abdomen and pelvis with contrastDO Wild Furlong Work Phone: Start: 68-72-4719BU of thorax with contrastDO Wild Furlong Work Phone: Start: 22-78-7750Kdrokasoxadocdl of limbDO Wild Furlong Work Phone: Start: 13-94-2792Woccmeko tomography of abdomen and pelvis with contrastDO Wild Furlong Work Phone: Start: 81-61-5702MU of thorax with contrastDO Wild Furlong Work Phone: start: 46-14-0992Xvyordxcjkveeqp of limbDO Wild Furlong Work Phone: start: 50-81-6318Rzqvzmsn tomography of abdomen and pelvis with contrastDO Wild Furlong Work Phone: start: 76-55-1845GW of thorax with contrastDO Wild Furlong Work Phone: Start: 25-61-4328Nxknxipqxvsuerr of limbDO Wild Furlong Work Phone: Start: 45-68-1937STS of headDO Wild Furlong Work Phone: Start: 68-66-6982Mawixdtk emission tomography with computed tomographyDO Wild Furlong Work Phone: start: 49-49-7393Jvorcpfejm procedure on topographic regionDO Wild Furlong Work Phone: Start: 70-05-5631Imbjnnmez ScheufeleBilateral tubal ligationKathy Lue Cataract surgeryDennis FurlongHistory of cholecystectomyS/P laparoscopic cholecystectomyDennis G Furlong DO Work Phone: History of cholecystectomyS/P cholecystectomyBriana L Nick WOMEN'S HEALTH CARE NURSE PRACTITIONER-ARTERIAL EMBALMER Work Phone: History of cholecystectomyHistory of cholecystectomy Wild G Furlong DO Work Phone: History of operative procedure on kneeKathy Lue History of repair of musculotendinous cuff of shoulder Shavon Lue Ligation of fallopian tubeDennis Furlong Phacoemulsification of cataract with intraocular lens implantationKathy Lue Repair of musculotendinous cuff of shoulderDennis Furlong Plan of Treatment DateCare ActivityDetailAuthorStart: 00-65-4147Ldemhawvli ScreeningDepression ScreeningProMedica Health SystemStart: 51-12-7623Igsj Risk ScreeningFall Risk ScreeningProMedica Health SystemStart: 04-42-3405Ktlwgsx ScreeningTobacco ScreeningProMedica Health SystemStart: 30-84-8248Gmlgjhbwkc ScreeningDepression ScreeningProMedica Health SystemStart: 35-19-9652Kgjr Risk ScreeningFall Risk ScreeningProMedica Health SystemStart: 57-71-2346Fldtaqn ScreeningTobacco ScreeningProMedica Health SystemStart: 32-59-0084Frexxhn ScreeningTobacco ScreeningProMedica Health SystemStart: 42-01-7591Fehcyeqteo ScreeningDepression ScreeningRutland Regional Medical CenterMedica Health SystemStart: 13-68-1895Ddth Risk ScreeningFall Risk ScreeningProMedica Health SystemStart: 89-54-3090Wmaexrv ScreeningTobacco ScreeningProMedica Health SystemStart: 12-49-1707Xhdusgdrsz ScreeningDepression ScreeningProMedica Health SystemStart: 73-70-6600Eovb Risk ScreeningFall Risk ScreeningProMedica Health SystemStart: 34-89-9021Ipvuoan ScreeningTobacco ScreeningSuburban [facility] SystemStart: 11-64-0673JBS test (Diabetes, CKD 3-4, OR last GFR 15-59)GFR test (Diabetes, CKD 3-4, OR last GFR 15-59)[facility] HealthStart: 50-60-2501Mzatwmpqzc A1c gxfhcyswpzmN0C test (Diabetic or Prediabetic)[facility]: 27-16-8481Bazmzxjrw for malignant neoplasm of colonNOMS HealthcareStart: 69-79-8698Ergryvrrtt ScreeningDepression ScreeningFormerly [facility] Centertart: 87-82-2508Pffhmdq ScreeningTobacco ScreeningFormerly [facility] Centertart: 27-12-2281Ouf [facility] CenterStart: 34-26-6789ANyE,Tdap and Td Vaccines (2 - Td or Tdap)DTaP,Tdap and Td Vaccines (2 - Td or Tdap)[facility] SystemComment on above:Postponed from 09/18/2022 (Vaccine Not Available)Start: 10-16-2025 End: 02-67-4197Lelkakx encounter rsukerssd38/10/2025 8:30 AM EST Office Visit [facility] - Family Medicine [address] [place] [address] Wild Centeno DO [address], [facility] [place] [address] [facility] Medicine - Family MedicineStart: 71-67-9682Vupryelj screeningDiabetic Ophthalmology ExamProGeorgetown Behavioral Hospital SystemStart: 08-20-2025 Tobacco ScreeningTobacco ScreeningSuburban [facility] & [facility] SystemStart: 83-18-2904Hiuvv BMI ScreeningAdult BMI ScreeningSuburban [facility] & [facility] SystemStart: 08-16-2025 Depression ScreeningDepression ScreeningSuburban [facility] & [facility] SystemStart: 08-16-2025 Fall Risk ScreeningFall Risk ScreeningSuburban [facility] & [facility] SystemStart: 08-16-2025 Tobacco ScreeningTobacco ScreeningSuburban [facility] & [facility] SystemStart: 08-07-2025 Administration of varicella zoster vaccineZoster (Shingles) Vaccine (1 of 2) [facility] SystemComment on above:Postponed from 03/09/2013 (Vaccine Not Available)Start: 36-53-3927Wckfvvsyj vaccinationInfluenza VaccineSuburban Community Hospital & Brentwood Hospital SystemComment on above:Postponed from 07/08/2025 (Vaccine Not Available) Start: 08-02-2025 End: 40-94-4550Pxtymaj encounter vhnqrjagx04/26/2025 11:45 AM EDT Office Visit [facility] [address] [place] [address] Wild Centeno, DO [address], [address] [place] [address] [facility] Internal Medicine [facility] MedicineStart: 41-86-3385GnuzuymnkWVUMedicine Barnesville Hospitaltart: 51-97-5318KzyypeeayWVUMedicine Barnesville Hospitaltart: 07-17-2025 End: 71-03-3631Otyizaf encounter /10/2025 9:00 AM EDT [facility] [address] [place] [address] Wild Centeno, DO [address], [address] [place] [address] [facility] Physicians Internal [facility] MedicineStart: 89-66-9436Rjjrr BMI ScreeningAdult BMI ScreeningSuburban Community Hospital & [facility] SystemStart: 49-87-7052Ystrlsnz identified in Urine by CultureUrine [facility] Start: 39-07-2634Usaobcu ScreeningTobacco ScreeningSuburban Community [facility] & [facility] SystemStart: 96-81-8834Vdals screening for proteinUrine MicroalbuminSuburban Community Hospital & [facility] System Start: 16-05-5238Ljhty cultureWVUMedicine Barnesville Hospitaltart: 07-08-2025 Influenza vaccinationInfluenza VaccineSuburban Community Hospital & [facility] SystemStart: 06-24-2025 End: 02-30-1346Gwwbzal encounter ttnoqpkds07/18/2025 9:30 AM EDT Office Visit [facility] - Family Medicine [address] [place] [place] [address] Wild Centeno, DO [address], [place] [address] [facility] MedicineStart: 06-17-2025 End: 30-04-3181Mwupwkpumzex consultation with aljegxo5606/17/2025 10:00 AM EDT Telemedicine [facility] Pulmonary/Sleep [facility] [address] [place] [address] Marie Gray MD [address] [facility] Left practice 04/06 [place] [address] [facility] Pulmonary/Sleep MedicineStart: 62-81-6991Uslysnxey for malignant neoplasm of breastMaFormerly [facility] SystemStart: 05-14-2025 End: 89-53-6359Ddhwjfi encounter baszychyl35/08/2025 2:00 PM EDT Office Visit [facility] - Family Medicine [address] [place] [place] [address] Wild Centeno, DO [address], [place] [address] [facility] Internal Medicine [facility] MedicineStart: 05-07-2025 End: 70-75-4386Futkwasm Ifmecpc3505/07/2025 8:00 PM EDT Clinical Support [facility] [address] [place] [phone] Wild Centeno, DO [address] [place] [address] [facility] DisordersStart: 05-03-2025 End: 52-98-8465Wyrsirxv Bzcvxcf2005/03/2025 7:30 PM EDT Clinical Support [facility] - Sleep Disorders [address] [facility] [address] Wild Centeno, DO [address], [place] [address] [facility] - Sleep DisordersStart: 05-03-2025 End: 76-07-1748NB.doppler Lower extremity vein - leftVas venous duplex lwr single left Vascular Ultrasound STAT Localized swelling of left foot Expected: 05/03/2025, Expires: 05/03/2026[facility] SystemComment on above:Expected: 05/03/2025, Expires: 05/03/2026Start: 04-23-2025 End: 92-62-0662Ggwlkib encounter cwuqprclj10/17/2025 12:45 PM EDT Office Visit [facility] General Surgery [address] [facility] [address] [place] [address] s/p lap jt 04/10/25[facility] General SurgeryComment on above:s/p lap jt 04/10/25Start: 03-26-2025 End: 92-05-2250Yyhtovl encounter cucwpcqpe02/20/2025 10:40 AM EDT [facility] [address] [place] [address] [phone] Physicians Internal Medicine - Family MedicineStart: 03-21-2025 End: 88-27-7805Yzyqftn encounter /15/2025 11:00 AM EDT Office Visit [facility] Internal Medicine - Family Medicine [address] [place] [address] Wild Centeno, DO [address], [place] [address] [facility] Physicians Internal Medicine - Family MedicineStart: 26-47-4079Vcmev BMI ScreeningAdult BMI ScreeningProGeorgetown Behavioral Hospital SystemStart: 08-13-0173Seiikjkrup ScreeningDepression ScreeningProGeorgetown Behavioral Hospital SystemStart: 39-61-4216Qkop Risk ScreeningFall Risk ScreeningSuburban Community Hospital & [facility] SystemStart: 05-14-2025Medicare Annual Wellness VisitMedicare Annual Wellness VisitSuburban Community Hospital & [facility] SystemStart: 52-85-6280Faudtpxf identified in Urine by CultureUrine [facility] Hospitaltart: 28-83-0730Vmibk [facility] Healthtart: 40-80-9332Wwtqg BMI ScreeningAdult BMI ScreeningProGeorgetown Behavioral Hospital SystemStart: 84-11-8732Gbaigmcvby ScreeningDepression ScreeningProGeorgetown Behavioral Hospital SystemStart: 53-63-3394Ajrk Risk ScreeningFall Risk ScreeningSuburban Community Hospital & [facility] SystemStart: 86-36-8113Vlfdlmh ScreeningTobacco ScreeningSuburban Community Hospital [facility] Start: 66-52-2329Omxcqht referralMercy Health [facility] Work Phone: Start: 29-60-9433Esctr BMI ScreeningAdult BMI ScreeningProGeorgetown Behavioral Hospital SystemStart: 31-20-8071Qyuncshjhw ScreeningDepression ScreeningSuburban Community Hospital & [facility] SystemStart: 42-80-9732Uokb Risk ScreeningFall Risk ScreeningSuburban Community Hospital & [facility] SystemStart: 05-14-7383Gnbfadf ScreeningTobacco ScreeningSuburban Community Hospital & [facility] SystemStart: 30-11-8036Odfexkxrbaz Syncytial Virus (RSV) or age 60 yrs+ (1 - 1-dose 75+ series)Respiratory Syncytial Virus (RSV) or age 60 yrs+ (1 - 1-dose 75+ series)[facility] [employer] Start: 29-47-8186Koo [facility] HospitalOncolytics BiotechStart: 84-01-1694Lnsiw BMI Screening Adult BMI ScreeningUniversity [facility]als [facility] Cubiez SystemStart: 59-54-4035Zcmmxsjgqr Screening Depression ScreeningSuburban Community Hospital & [facility] SystemStart: 29-95-8465Jrcozcm Screening Tobacco ScreeningSuburban Community Hospital & [facility] SystemStart: 59-64-6135Imllmoel screening Diabetic Ophthalmology ExamProGeorgetown Behavioral Hospital SystemStart: 07-16-2024 End: 96-38-0967Jecqkow encounter ekvhveeah21/09/2024 8:30 AM EDT Office Visit [facility] Internal Medicine - Family Medicine [address] [place] [address] Wild Centeno, [address], [place] [address] [facility] - Family MedicineStart: 60-69-2417Kidx Risk ScreeningFall Risk ScreeningProGeorgetown Behavioral Hospital SystemStart: 33-98-9421TBEMK-19 Vaccine ()COVID-19 Vaccine ()[facility] SystemStart: 91-73-1961ULECC-19 Vaccine ()COVID-19 Vaccine ()[facility] SystemStart: 10-66-0773Uxzmrsmer vaccinationFreeman Orthopaedics & Sports MedicineStart: 11-93-7174LvtCumberland HospitalStart: 06-07-2024 End: 84-70-1764Mwwrnrb encounter fyqkpqdhs68/01/2024 11:30 AM EDT Appointment [facility] - Mammogram DEXA [address] [place] [address] Wild Centeno, [address], [place] [address] [facility] - Mammogram DEXAStart: 05-28-2024 End: 56-85-2904Armuiph encounter anqtmprxj10/22/2024 11:30 AM EDT Appointment [facility] - Mammogram DEXA [address] [place] [address] [phone] [facility]ty [facility] DEXA Start: 05-22-2024 End: 38-04-2971TVK Breast - bilateral screeningMammography screening bilateral with CAD Imaging Routine Encounter for screening mammogram for malignant neoplasm of breast Expected: 05/22/2024, Expires: 05/22/2025ProPrinc[facility] Work Phone: Comment on above:Expected: 05/22/2024, Expires: 05/22/2025Start: 82-12-4401Bwvnhdfsb for malignant neoplasm of breastMammogram [facility] HealthcareStart: 03-20-2024 End: 60-82-5138Umgorgm encounter mebdlcjef15/14/2024 11:10 AM EDT [facility] [address] [place] [address] OlhLjzorw Physicians [facility] MedicineStart: 30-98-1494Hrhbriyn foot examinationDiabetic Foot ExamProMercy Health Lorain Hospitaltart: 09-13-5433Fnbda screening for proteinNOMS HealthcareStart: 05-04-2024Medicare Annual Wellness (AWV)Medicare Annual Wellness (AWV)[facility] HealthcareStart: 05-04-2024Medicare Annual Wellness VisitMedicare Annual Wellness VisitProMercy Health Lorain Hospitaltart: 01-11-2024 End: 29-39-8806Ocaufqz encounter zrwelrwfd35/06/2024 10:50 AM EST [facility] [address] [place] [address] Wild Centeno, DO [address], [facility] [place] [address] [facility] MedicineStart: 12-28-2023 End: 19-15-1253vryejrlyez46/21/2024 2:30 PM EST Treatment [facility] [address] [place] [address] Zabrina Haro SKIING TEACHER [facility] PTStart: 12-26-2023 End: 83-86-0599nkgcvquxzn42/19/2024 2:30 PM EST Treatment [facility] [address] [place] [address] Zabrina Haro SKIING TEACHER [facility] PTStart: 12-21-2023 End: 78-64-4229yohjdescmu23/14/2024 2:30 PM EST Treatment [facility] [address] [place] [address] Zabrina Haro, SKIING TEACHER [facility] PTStart: 12-19-2023 End: 16-49-3859eelxvtgwurJSHM CI PTComment on above:ArrivedStart: 12-14-2023 End: 00-33-0455mvlklfmfrz04/07/2024 2:30 PM EST Treatment [facility] [address] [place] [address] Zabrina Haro, SKIING TEACHER ArrivedNOMS CI PTComment on above:ArrivedStart: 22-14-3731Qjugyh Wellness Visit (Medicare)Annual Wellness Visit (Medicare)[facility] Centerart: 42-26-7162Hyc [facility]: 75-34-8592GKAJX-19 Vaccine ( season)COVID-19 Vaccine ( season)[facility]ly [facility] Centertart: 94-36-5247NZoF,Tdap and Td Vaccines (2 - Td or Tdap)DTaP,Tdap and Td Vaccines (2 - Td or Tdap)[facility] Centertart: 44-03-0365FOsM/Tdap/Td vaccine (2 - Td or Tdap)DTaP/Tdap/Td vaccine (2 - Td or Tdap)[facility]: 40-52-1729Xao [facility]: 02-81-9541FdfomurxbWVUMedicine Barnesville Hospitaltart: 52-56-1435AdpgmvjuzWVUMedicine Barnesville Hospitaltart: 07-15-2021 End: 89-04-0460TaqaqywgdRegency Hospital [facility]edo CenterStart: 00-51-4163IsnhalhnnRegency Hospital Toledo CenterStart: 78-80-8540KifdnlqwwWVUMedicine Barnesville Hospitaltart: 19-21-8302Clzvemwqqpgmtc of varicella zoster vaccineZoster (Shingles) Vaccine (1 of 2)[facility] SystemStart: 26-85-6725Jirfsbrb vaccine (1 of 2)Shingles vaccine (1 of 2)[facility] CenterStart: 07-16-2648Tcv [facility] CenterStart: 61-88-0247Fcjcslqtz for osteoporosisBon [facility] CenterStart: 67-86-4332Dddymmdxk for malignant neoplasm of colonCentra Health Start: 38-69-8222Vwkfc BMI Follow Up PlanAdult BMI Follow Up [facility] Carolinatart: 36-34-5163Ufylvpzq screeningCentra HealthStart: 46-12-4851Erjxuayrk C screeningBon [facility] CenterStart: 82-92-2007Rgbnh screening for proteinBon [facility] CenterStart: 35-70-4401Zihegaeqqp Screen Depression ScreenRussell County Medical Centerart: 25-73-0150Cul [facility] CenterStart: 71-38-9154Uggzqkmi foot examinationBon [facility] City Hospitalart: 51-68-0053Nvgtshiw screeningDiabetes: Retinopathy ScreeningFreeman Orthopaedics & Sports MedicineStart: 83-23-8069Ilxxnuvztn A1c measurementBon [facility] CenterStart: 1960 Lipid panelBon [facility] CenterStart: 50-90-0627Kkkleslbgd A1c measurement Diabetes: Hemoglobin V6HJYPLFreeman Orthopaedics & Sports MedicineStart: 67-32-5102Fjpskguns for malignant neoplasm of colonFreeman Orthopaedics & Sports MedicineAB drawCentra Health End: 96-73-7565Ymkwi metabolic 2000 panel - Serum or PlasmaBasic Metabolic Panel Lab Routine Daily for 10 Days starting 04/11/2025 until 04/20/2025, 3 completed [facility] on above:Daily for 10 Days starting 04/11/2025 until 04/20/2025, 3 completed End: 82-66-3237Zlqulij, IonizedCalcium, Ionized Lab Routine Daily for 10 Days starting 04/11/2025 until 04/20/2025, 3 [facility] on above:Daily for 10 Days starting 04/11/2025 until 04/20/2025, 3 completed End: 13-03-1307TIF W Auto Differential panel - BloodCentra Health End: 83-59-0595GFK W Auto Differential panel - BloodCBC with Auto Differential Lab Routine Daily for 10 Days starting 04/11/2025 until 04/20/2025, 3 completed Bon [facility] CenterComment on above:Daily for 10 Days starting 04/11/2025 until 04/20/2025, 3 completed End: 79-00-0483RWP W Auto Differential panel - BloodCBC auto differential Lab Routine S/P cholecystectomy Abnormal CBC 1 Occurrences starting 05/03/2025 until 05/03/2026[facility] SystemComment on above:1 Occurrences starting 05/03/2025 until 6CBC W Auto Differential panel - BloodCBC auto differential Lab Routine S/P cholecystectomy Abnormal CBC 05/03/2025 10:00 AM [facility] HospitalQUICK SANDS SOLUTIONS [facility] HospitalComprehensive metabolic 1999 panel - Serum or Plasma [facility] Work Phone: Comprehensive metabolic 1999 panel - Serum or Plasma [facility] HospitalComprehensive metabolic 1999 panel - Serum or [facility] CenterComprehensive metabolic 1999 panel - Serum or [facility] CenterComprehensive metabolic 1999 panel - Serum or [facility] CenterComprehensive metabolic 1999 panel - Serum or [facility] End: 42-94-5940Hzpmfgqqaavga metabolic 1999 panel - Serum or PlasmaBon [facility] End: 04-45-6742Xmcjmfhvhxotd metabolic 1999 panel - Serum or PlasmaComprehensive metabolic panel Lab Routine S/P cholecystectomy 1 Occurrences starting 05/03/2025 until 05/03/2026[employer] Work Phone: Comment on above:1 Occurrences starting 05/03/2025 until 05/03/2026omprehensive metabolic 1999 panel - Serum or Plasma Comprehensive metabolic panel Lab Routine S/P cholecystectomy 05/03/2025 10:00 AM [facility]QU[facility] HospitalContinuous positive airway pressure ventilation treatmentBon [facility] CenterContinuous pulse oximetryBon [facility] CenterCT Abdomen and Pelvis W contrast [facility] W contrast [facility] HospitalCT Abdomen and Pelvis W contrast [facility] HospitalCT Abdomen and Pelvis W contrast [facility] HospitalCT Chest W contrast [facility] HospitalCT Chest W contrast [facility] HospitalCT Chest W contrast IVFDetwiler Memorial HospitalCT Chest W contrast IV [facility] HospitalGlucose [Mass/volume] in Serum or PlasmaBon [facility] HospitalOpen-Xchange HealthGlucose [Mass/volume] in Serum or PlasmaBon [facility] HospitalOncolytics BiotechGlucose [Mass/volume] in Serum or PlasmaPOCT Glucose Point of Care Testing STAT As Needed until discontinued starting 04/10/2025on [employer] Comment on above:As Needed until discontinued starting 04/10/2025 End: 28-13-0071Lqsdqxwofl A1c/Hemoglobin.total in BloodHemoglobin A1c Lab Routine 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 ([facility]) 1 Occurrences starting 07/16/2024 until 07/16/2025 [employer] Work Phone: Comment on above:1 Occurrences starting 07/16/2024 until 07/16/2025 End: 39-69-8305Amyb sleep studyHome sleep study Sleep Center Routine Hypersomnia 1 Occurrences starting 04/24/2025 until 04/24/2026[facility] Work Phone: Comment on above:1 Occurrences starting 04/24/2025 until 04/24/2026Lactate dehydrogenase [Enzymatic activity/volume] in Unspecified specimenRegency Hospital Toledo Work Phone: Lactate dehydrogenase [Enzymatic activity/volume] in Unspecified specimenMercy Health St. [facility] End: 51-94-8612Ivmjhacri [Mass/volume] in Serum or PlasmaBon [employer] End: 63-73-6554Jwhachcgs [Mass/volume] in Serum or PlasmaMagnesium Lab Routine Daily for 10 Days starting 04/11/2025 until 04/20/2025, 3 completedBon [employer] NetworksComment on above:Daily for 10 Days starting 04/11/2025 until 04/20/2025, 3 completed End: 57-38-6354Skofgakvhwse - Albumin: Creatinine Urine RatioMicroalbumin - Albumin: Creatinine Urine Ratio Lab Routine 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 ([facility]) 1 Occurrences starting 07/16/2024 until 07/16/2025ProO[employer] SystemComment on above:1 Occurrences starting 07/16/2024 until 07/16/2025Nasal Cannula Oxygen Nasal Cannula Oxygen Respiratory Care Routine Daily until discontinued starting 04/13/2025 [facility] [employer] Work Phone: comment on above:Daily until discontinued starting 04/13/2025Non-Heated High Flow Nasal CannulaBon [facility] Work Phone: Oxygen therapy [Minimum Data Set]Bon [facility] Medical CenterOxygen therapy [Minimum Data Set]Initiate Oxygen Therapy Protocol Respiratory Care Routine As Needed until discontinued starting 04/10/2025 [facility] CenterComment on above:As Needed until discontinued starting 04/10/2025Pathology studySurgical Pathology Lab Routine Cholecystitis Release Upon Ordering for 1 Occurrences starting 04/10/2025[facility] Comment on above:Release Upon Ordering for 1 Occurrences starting 04/10/2025 Patient EducationUreteroscopy - Discharge instructions Ureteral stent placement - Discharge instructions Know your [facility] Work Phone: Patient [facility] Work Phone: POCT EKGPOCT EKG ECG Routine Irregular heart beat 05/03/2025 10:17 AM [facility] [employer] [facility] End: 15-01-8261Qftqehpwxdqkyjk 4 or more parameters with PAP titration Polysomnography 4 or more parameters with PAP titration Sleep Center Routine RONEN (obstructive sleepapnea) Class 3 severe obesity due to excess calories with serious comorbidity and body mass index (BMI) of 40.0 to 44.9 in adult ([facility]) Essential hypertension, benign 1 Occurrences starting 06/17/2025 until 06/17/2026[facility] Work Phone: Comment on above:1 Occurrences starting 06/17/2025 until 06/17/2026 End: 13-56-1091TZT DiagnosticPSG [facility] Routine Hypersomnia Excessive daytime sleepiness 1 Occurrences ccbnfwpu62/23/2025 until 04/29/2026 [employer] Work Phone: Comment on above:1 Occurrences starting 04/29/2025 until 04/29/2026 End: 77-24-0449Nwlpxvuzjhp care evaluation onlyBon [facility] Spirometry panelCentra Health End: 58-09-7699Uztafzlyuci [Units/volume] in Serum or PlasmaTSH Lab Routine Type 2 diabetes mellitus with stage 3a chronic kidney disease, with long-term curren t use of insulin ([facility]) 1 Occurrences starting 07/16/2024 until 07/16/2025 [facility] SystemComment on above:1 Occurrences starting 07/16/2024 until 07/16/2025[facility] Work Phone: us [facility] Immunizations Immunization DateImmunizationNotesCare ChiardytLrpknboo58-80-6426Muyxzacr trivalent influenza vaccine, adjuvanted, preservative freeValerie Jama WOMEN'S HEALTH CARE NURSE PRACTITIONER-ARTERIAL EMBALMER Work Phone: [facility] HospitalHxgyhq46-41-4176Pvibqityuqjk, In Clinic,; Translations: [Drug or medicament (substance)]Giuseppe Jama WOMEN'S HEALTH CARE NURSE PRACTITIONER-ARTERIAL EMBALMER Work Phone: [facility] CenterOrexo Dctijy66-73-8498gqamnfkmg virus vaccine, unspecified formulationDennis Furlong DO Work Phone: [facility]11-06-2023Influenza Vaccine, Quadrivalent, AdjuvantedDennis Furlong DO Work Phone: [facility] [employer] Qxlfpo79-44-2610tasyyxjge virus vaccine, unspecified formulationDennis Furlong DO Work Phone: [facility]12-02-2022influenza virus vaccine, unspecified formulationKathy Lue [facility]12-02-2022Influenza, High-dose, QuadrivalentDennis Furlong DO Work Phone: [facility] HospitalSikokt38-97-8240XSPJ-VhA-4 (COVID-19) mRNA BNT-162b2 vaxKathy Lue [facility]03-18-2021SARS-CoV-2 (COVID-19) mRNA BNT-162b2 vaxKathy Lue [facility]02-25-2021SARS-CoV-2 (COVID-19) mRNA BNT-162b2 vaxKathy Lue [facility]12-06-2020influenza virus vaccine, unspecified formulationKathy Lue [facility]12-06-2020influenza, injectable, quadrivalent, contains preservative Wild Furlong DO Work Phone: [facility] HospitalKlrbjy67-86-0675jbxozuqpo virus vaccine, unspecified formulationKathy Lue [facility]10-28-2019Influenza, injectable, Madin [place] Canine Kidney, quadrivalent with preservativeDennis Furlong DO Work Phone: [facility] HospitalEuupbv34-59-9030exbyffrth virus vaccine, unspecified formulationKathy Lue [facility]12-18-2017Influenza, injectable, Madin [place] Canine Kidney, preservative free, quadrivalentDennis Furlong DO Work Phone: [facility] HospitalGuejnk62-82-1415ezvtkqkhcnbt polysaccharide vaccine, 23 valentDennis Furlong DO Work Phone: [facility] HospitalOtkykr21-65-1725osrohqipq virus vaccine, unspecified formulationKathy Lue [facility]10-30-2016influenza, seasonal, injectable, preservative freeDennis Furlong DO Work Phone: [facility] HospitalTmlapr36-78-0764cfmkbzfjfyyk conjugate vaccine, 13 valentDennis Furlong DO Work Phone: [facility] HospitalYyfulb19-11-2194esjbhsmcu virus vaccine, unspecified formulationKathy Lue [facility]11-01-2015influenza, seasonal, injectable, preservative freeDennis Furlong DO Work Phone: [facility] HospitalNynioy42-00-1135bdkttfacb virus vaccineDennis Furlong DO Work Phone: [facility]03-08-2013zoster vaccine, unspecified formulationDennis Furlong DO Work Phone: [facility]11-12-2012tetanus toxoid, reduced diphtheria toxoid, and acellular pertussis vaccine, adsorbedDennis Furlong DO Work Phone: [facility] HospitalEcqsfh07-44-4624gsdqbidljuab conjugate vaccine, 7 valentChristian Scheufele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 Payers DatePayer CategoryPayerPolicy [id number] IndemnityMEDICAL MUTUAL Member Subscriber Plan / Payer (Effective 2018-Present) Name: Dontrell Mcneal Relation to Subscriber: Self Name: Tosha Mcneal Payer ID: Not on file Type: Not on file Address: [place] [id number] [id number] Health Insurance [id number] [id number] 2.16.840.1.112647.3.579.2.31594-93-4136Zmzgluf4387432 2.16840.1.471875.3.579.2.27275-65-9858Txkezfd9917468 2.840.1.823046.3.579.2.36753-74-6780Lewowhy0506283 2.16.840.1.910678.3.579.2.00801-00-6349Qocesaf13513741 2.16.840.1.654131.3.579.2.58161-45-6856Gzemytm15480727 2.16840.1.628661.3.579.2.92111-62-6420Cxogepz878019364 2.16.840.1.782255.3.579.2.28788-40-1532Wxdfkgo9714625 2.16.840.1.134380.3.579.2.305974-33-4202Fkfctyh2752553 2.16840.1.934255.3.579.2.875990-28-2225Oopfhwq8986355 2.16.840.1.442598.3.579.2.417266-67-7747Udzmxfm9458003 2.16.840.1.318023.3.579.2.996069-70-7000Ntgniwq4852673 2.16.840.1.934974.3.579.2.519630-22-7498Nxevxyd4101676 2.16.840.1.020415.3.579.2.594292-94-0247Qzpjwjq5390548 2.16.840.1.341035.3.579.2.505500-68-4015Vgqdrhi1108335 2.16.840.1.474145.3.579.2.328789-89-3175Xvzlrba7073193 2.16.840.1.693050.3.579.2.913021-73-8595Vquxbzu4724784 2.16.840.1.386556.3.579.2.133520-64-5264Eckbxch7574662 2.16.840.1.269901.3.579.2.340136-47-3832Lskspkw8045488 2.16.840.1.684260.3.579.2.960458-28-9303Taxlgvd6427938 2.16.840.1.661588.3.579.2.364953-68-9445Nabcvvf249799 2.16840.1.346004.3.579.2.535149-64-2167Pscpgna785029 2.16.840.1.351566.3.579.2.009819-88-4966Vchkkam332989 2.16.840.1.472138.3.579.2.313898-70-9811Mgvjslk441586 2.16.840.1.994508.3.579.2.145864-37-1029Quqssqe167278 2.16.840.1.738584.3.579.2.718587-34-7550Lumowre102523 2.16.840.1.927167.3.579.2.145871-85-1150Qsqmrwp965138 2.16.840.1.983633.3.579.2.099614-36-0655Vsqkrfm510190 2.16.840.1.383841.3.579.2.265353-68-0839Euhxihf54342903 2.16.840.1.532084.3.579.2.954270-90-2015Spxctuq78562847 2.16.840.1.540617.3.579.2.085484-54-6095Slbqlyh144853578 2..840.1.948700.3.579.2.53106-50-2373Massjch387224794 2.0.1.859941.3.579.2.08866-19-1252Qlbihui572741809 2.840.1.218656.3.579.2.451843-31-9883Suwcmxa54951381 2..840.1.437273.3.579.2.706421-89-2316Bogbgvm561827524 2..840.1.056476.3.579.2.813158-75-3457Kwwlqfu917152036 2..840.1.236948.3.579.2.149841-89-9534Cflsrgl755142107 2.16.840.1.313529.3.579.2.803680-56-2899Ytlhifp720913021 2.16.840.1.959079.3.579.2.967429-66-2657Uabzicy886087445 2.16.840.1.825915.3.579.2.417154-46-8294Abhembe572082857 2.16.840.1.168559.3.579.2.351022-04-9047Szqypmw69762919 2.16.840.1.088415.3.579.2.614677-48-0186Sjriocn98371340 2.16.840.1.975002.3.579.2.31702-64-0216Fzxndka97332014 2..840.1.281299.3.579.2.73876-16-6707Pyukxve03629650 2..840.1.882518.3.579.2.07324-43-7045Ibiyfmf62357626 2.16.840.1.862911.3.579.2.727UnknownMutual of Xbneg64489395 c12o9735-4752-2s2y-1937-1gi855387442Pitnnit37067370 2.16.840.1.051826.3.579.2.965Ylcdkes59953027 2.16.840.1.359643.3.579.2.531 Bawtedi85641223 2.16.840.1.518997.3.579.2.048Lcbottn93769980 2.16.840.1.026140.3.579.2.103Vijpmqk58783029 2.16.840.1.042688.3.579.2.531 Social History DateTypeDetailFacilityAssertionTobacco smoking consumption unknown (finding) EJ-Lywjrgk-FxzosyvKalamazoo Psychiatric Hospital Work Phone: start: 52-81-9780Mfrf. of Dermatology Start: 39-60-3851Apj Assigned At BirthWVUMedicine Harrison Community Hospitaltart: 03-31-2022 End: 27-05-9322Urmmvro smoking status NHISNever smoked tobacco (finding) [facility]tart: 09-06-2022 End: 23-63-4585Tthtaci use and exposureSmokeless tobacco non-userNOMS Healthcare Start: 11-04-2023 End: 30-23-8984Avhlzyb intakeEx-drinker (finding)NOMS HealthcareStart: 12-18-2020 End: 25-73-3658Lydpbyf of Social functionNOMS HealthcareStart: 12-18-2020 End: 07-14-0527Gnzlrsw use panelNONJ HealthcareStart: 49-73-7007Zywqela Comment Caffeine: 1-2 cups/dayNOMS HealthcareStart: 20-31-9795Nxl Assigned At BirthNot on fileNONJ HealthcareDo you belong to any clubs or organizations such as scientology groups, unions, fraternal or athletic groups, or school groups?YesProMedica Health SystemAre you now , , , , never or living with a partner?MarriedProPrinceton Baptist Medical Center Health SystemHow often to you have a drink containing alcohol?NeverProPrinceton Baptist Medical Center Health SystemHow many standard drinks containing alcohol do you have on a typical day?Patient does not drinkProMedica Health SystemDo you feel stress - tense, restless, nervous, or anxious, or unable to sleep at night because yourmind is troubled all the time - these days [OSQ]Not at allUniversity Hospitals Lake West Medical Center Health SystemStart: 06-12-2015 End: 94-52-7464BejTervti (finding)[facility] HospitalHas the [employer], gas, oil, or water company threatened to shut off services in your home in past 12MoNoBon [employer](I/We) worried whether (my/our) food would run out before (I/we) got money to buy more.Never trueBon [employer] NetworksSexual OrientationExec[facility] of [facility] Medical Equipment Procedure CodeEquipment CodeEquipment Original TextEquipment IdentifierDates Repair, fracture, orbitPLATE DS RESORB TRIANGLE 25MMFDAStart: 56-83-4564Dfhrfh, fracture, orbitPLATE DS RESORB TRIANGLE 25MMFDAStart: 88-63-9394Rntrkn, fracture, orbitPLATE DS RESORB TRIANGLE 25MMFDAStart: 10-90-7552Thifmr, fracture, orbitPLATE DS RESORB TRIANGLE 25MMFDAStart: 42-36-2477Hubeht, fracture, orbitPLATE DS RESORB TRIANGLE 25MMFDAStart: 53-50-9989Kxravf, fracture, orbitPLATE DS RESORB TRIANGLE 25MMFDAStart: 74-24-8623Mbblcm, fracture, orbitPLATE DS RESORB TRIANGLE 25MMFDAStart: 30-36-4920Qymfyd, fracture, orbitPLATE DS RESORB TRIANGLE 25MMFDAStart: 64-56-3217Xokxmt, fracture, orbitPLATE DS RESORB TRIANGLE 25MMFDAStart: 81-84-0679Ekjbqu, fracture, orbitPLATE DS RESORB TRIANGLE 25MMFDAStart: 28-43-2580Efnfdb, fracture, orbitPLATE DS RESORB TRIANGLE 25MMFDAStart: 48-76-8298Aahlpi, fracture, orbitPLATE DS RESORB TRIANGLE 25MMFDAStart: 26-16-4728Ebof-Chek María Elena Plus test strips TEST once [id number] End: 19-91-60631874860_itqUnlun: 83-18-13666842236_fueJmwkc: 10-03-2023 [id number]_impStart: 27-28-49899226257_nshVghkc: 43-39-86006593127_zvhFnoba: 74-12-35056580141_idkNizon: 63-17-3845Bbkr Int Xl Yel Polymer Hem-O-Manolo Weck - [id number]_luhWplte: 04-10-2025 Goals DatePatient GoalDesired Activity/State Functional Status DateAssessmentResultFacilityNEGATED: Highlighted rowFunctional performance Functional status health issues are not documented FrywcapRT-Xndahtv-[facility] Work Phone: Mental Status DateAssessmentResultFacilityNEGATED: Highlighted rowCognitive function [Interpretation]Cognitive status health issues are not documented Disease [place]-Lpzgemh-VohafhvHealthsource [place] Work Phone: Clinical Notes 10-01-2020 to 08-27-2025 Note Date & ZfggEbiwWpattavf45-89-8245 NotePlease let her know her stress test was abnormal. Recommend we proceed with a heart cath to take a closer look. She was an alghothani pt so either Dr. Montalvo or Dr. Negrete. Thank [facility]10-06-2025 Note Patient Education Cystoscopy with Stent Removal [...] with urination. This will make your urine orange.[facility]10-06-2025 NoteHistory and Physical Patient: TOSHA MCNEAL Age: 74 [...] All Problems Arm fracture / SNOMED CT 30943848 / Confirmed Arthritis / SNOMED CT 5254580 / Confirmed Diabetes type 2 / SNOMED CT 782857425 / Confirmed Gout / SNOMED CT 399975761 / Confirmed History of kidney stones / SNOMED CT 1438355690 / Confirmed Hydroureteronephrosis / SNOMED CT 72976554 / Confirmed Hypercholesteremia / SNOMED CT 96558828 / Confirmed Hypertension / SNOMED CT 5135233422 / Confirmed Morbid obesity with BMI of 40.0-44.9, adult / IMO 48302368 / Possible Problem added automatically by Discern Expert based on clinical documentation RONEN (obstructive sleep apnea) / SNOMED CT 530390205 / Confirmed Osteoporosis / SNOMED CT 480612658 / Confirmed Pilonidal cyst / SNOMED CT 74304950 / Confirmed Canceled: Carpal tunnel syndrome / SNOMED CT 72890158 Histories Past Medical History: No active or resolved past medical history items have been selected or recorded. Family History: Stroke Mother Leukemia Father Procedure history: History of knee surgery (9382534596). History of repair of rotator cuff (5831322534). Bilateral tubal ligation (145077086). Phacoemulsification of cataract with intraocular lens implantation (8383927320). Social History Social & Psychosocial Habits Tobacco [...] post right ureteroscopy with brush biopsy, ureteral balloondilation, stent placement on 07/30/2025. Here for cystoscopy and right stent removal. Plan: Proceed with planned surgery per clinic note, risks/benefits previously discussed and documentedAcmc Healthcare System GlenbeighComment on above:Result Comment: Electronically Signed By: Ramsey JUAREZ, Shavon March.renea\Date and Time Signed: 08/12/25 10:94BNU87-84-8604 Hospital Discharge instructions Additional Instructions Take Tylenol 650-1000 mg [...] to urinate. You can buy AZO (phenazopyridine) bwvz-zdp-eahqcqx and use as needed for burning with urination. This will make your urine orange/red. Drink plenty of water and fluids You must follow up to ensure your stent is removed. Failure to do so may result in recurrent infections and renal failure. Start prophylactic antibiotics the morning of stent removal in 2 weeks.[facility] Work Phone: 1(916) 118-516009-22-2025 Miscellaneous Notes* Telephone Encounter - Amanda Poole CMA - 07/29/2025 8:36 AM EDT Patient called and has gout and will be in on Tuesday but is having surgery tomorrow. Can you send in the gout medication. * Telephone Encounter - Wild Centeno DO - 07/29/2025 8:36 AM EDT okay * Telephone Encounter - Amanda Poole CMA - 07/29/2025 8:36 AM EDT Patient contacted documented in this encounterMer[facility]09-[facility]-2025 Telephone encounter Note* Telephone Encounter - Amanda Poole CMA - 07/29/2025 8:36 AM EDT Patient called and has gout and will be in on Tuesday but is having surgery tomorrow. Can you send in the gout medication. [facility]09-22-2025 Telephone encounter Note* Telephone Encounter - Wild Centeno DO - 07/29/2025 8:36 AM EDT okay [facility]09-22-2025 Telephone encounter Note* Telephone Encounter - Amanda Poole CMA - 07/29/2025 8:36 AM EDT Patient contacted [facility]09-12-2025 Miscellaneous Notes* Telephone Encounter - Amanda Poole CMA - 07/19/2025 8:33 AM EDT Patient called and her back ache is so bad but the script that was sent in is 400.00 is there anything else to help? * Telephone Encounter - Wild Centeno DO - 07/19/2025 8:33 AM EDT Okay I sent in gabapentin for her * Telephone Encounter - Amanda Poole CMA - 07/19/2025 8:33 AM EDT Patient was notified documented in this encounterMercy Health [facility]09-12-2025 Telephone encounter Note* Telephone Encounter - Amanda Poole CMA - 07/19/2025 8:33 AM EDT Patient called and her back ache is so bad but the script that was sent in is 400.00 is there anything else to help? [facility]09-12-2025 Telephone encounter Note* Telephone Encounter - Wild Centeno DO - 07/19/2025 8:33 AM EDT Okay I sent in gabapentin for her [facility]09-12-2025 Telephone encounter Note* Telephone Encounter - Amanda Poole CMA - 07/19/2025 8:33 AM EDT Patient was notified [facility]09-10-2025 History of Present illness Narrative* Wild Centeno DO - 07/17/2025 9:00 AM EDT Subjective Patient ID: Tosha Mcneal is a 74 y.o. female. Alpa presents today for a diabetic recheck. She is taking all of her medications although she frequently forgets the noon lunchtime dose of her pre meal bolus insulin. She is wearing the Dexcom. She still does not feel well following her gallbladder surgery. Everything she eats tastes salty. She canonly have a few bites and then she [...] due to type 2 diabetes mellitus ([facility]) - POCT Hemoglobin A1c - Diabetic foot [...] Will try journvx. Sample given Morbid obesity ([facility]) Other orders - insulin aspart U-100 (NovoLOG Flexpen U-100 Insulin) 100 unit/mL (3 mL) insulin pen; Inject 8 Units under the skin in the morning and 8 Units at noon and 8 Units in the evening. Inject with meals. documented in this encounterPike Community HospitalInspivia Vhwwei59-24-0967 Evaluation note* Diagnosis 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 ([facility])- Primary Degeneration of intervertebral disc of lumbar region with discogenic back pain Morbid obesity ([facility]) Morbid obesity documented in this encounter [facility] PicketReport.comRxufbp42-29-9354 NoteCardiovascular Medicine [facility] SUBJECTIVE Chief Complaint Patient presents with [...] Since last seen, she was admitted to [facility] with acute cholecystitis. Her troponin levels were [...] EC tablet, Take (more content not included)... [facility]08-21-2025 NotePatient is here today for a follow [...] the hospital with o2 to use at hs, patient states she had not been using it. Patient states she did have a sleep study which showed RONEN. Patient denies chest pain. SOB, palpitations/heart racing. Patient complains of fatigue, leg swelling, FINLEY. Review of Systems Constitutional: Positive for malaise/fatigue. Cardiovascular: Positive for dyspnea on exertion and leg swelling.[facility]08-13-2025 Hospital Discharge instructions Patient Education 06/19/2025 10:41:21 [...] transplant. Follow these instructions at home: Take axyp-exk-bbplibw and prescription medicines only as told by [...] provider. Document Revised: 02/10/2021 Document Reviewed: 02/10/2021 Elsevier Patient Education 2023 Camera360. Follow Up Care 01/16/2025 10:12:12 With:Ramsey JUAREZ, RAMIREZ [place], URO Address: When: Unknown [facility]25 NotePatient Education Urology Hydronephrosis Hydronephrosis is [...] Follow these instructions at home: ??? Take kbwe-hkf-uiaxjog and prescription medicines only as told by [...] provider. Document Revised: 02/10/2021 Document Reviewed: 02/10/2021 [employer] Patient Education ? 2023 Camera360.[facility] 06-18-2025 Miscellaneous Notes* Telephone Encounter - Wilma Aguirre - 06/18/2025 8:53 AM EDT 06/17 Order received Called PT LM to schedule sleep study. Pap order and 06/17 Nina notes in epic Possible hypoxemia on PSG Please comment on arrhythmia documented in this encounterMercy Health Kings [facility] Hospital08-12-2025 Telephone encounter Note* Telephone Encounter - Wilma Aguirre - 06/18/2025 8:53 AM EDT 06/17 Order received Called PT LM to schedule sleep study. Pap order and 06/17 Nina notes in epic Possible hypoxemia on PSG Please comment on arrhythmia [facility]08-11-[facility] History of Present illness Narrative* Marie [...] the day. PSG 05/2025: AHI 88, oxygen ctahy 85% No sleepiness while driving Sleep Questionnaire [...] use phone/computer in bed? Yes Number of cabvew-tk-jkr-night awakenings per night? 1 Cause of awakenings [...] right Arthritis Diabetes mellitus type II, controlled ([facility]) Gout 04/2025 HTN (hypertension) Hyperlipidemia Denies h/o arrhythmia, CVA, [place] PAST SURGICAL HISTORY Past Surgical History: Procedure Laterality Date CARPAL TUNNEL RELEASE Right CATARACT EXTRACTION, BILATERAL CYST REMOVAL Tailbone LAPAROSCOPIC CHOLECYSTECTOMY 04/10/2025 DSr. Renée LYMPH NODE BIOPSY Left ORBITAL FRACTURE [...] (3%)=88.1 events/hour; AHI (4%)=22.3 events/hour; Cathy SpO2=85.0%; Ewpchl=205.0 lbs; BMI=40.6 kg/m2) DIAGNOSIS: Obstructive Sleep Apnea (G47.33) COMMENTS: This baseline polysomnogram demonstrates severe obstructive sleep apnea. Of note, there was no REM sleep. The patient's sleep efficiency on the diagnostic night was reduced at 66.1% due to prolonged wake after sleep onset. Sleep was highly fragmented. The automotive refinish technician noted possible hypoxemia versus malfunction of [...] HPI, 03/3005/07/2025 8:22 PM 04/24/2025 11:00 AM Arthur Sleepiness Scale Sitting and Reading 0 0 [...] index (BMI) of40.0 to 44.9 in adult ([facility]) - Polysomnography 4 or more parameters with [...] to stop the activity if sleepiness occurs (pull out operator at the next safe opportunity if driving). [...] days from the date of your CPAP graining machine operator. You are required to have a minimum [...] 14 days, please callthe sleep lab at [phone] For scheduling of other images, please contact central scheduling at [phone] For any sleep clinic concerns, please contact [phone] Please be aware of the recent recalls [...] More information can be found by visiting [email or web address]. Please be sure to register your Respironics PAP machine due to recent PAP recall There is a current nationwide shortage of PAP machines due to the chip shortage. DME fulfillment times range from 2-6 months. Please refer to the above documentation for further details. Marie Gray M.D. Video Visit via Real-time Synchronous Audiovisual Provider Location: [facility] [address] [place] [phone] Patient Location: Patient's home Video Visit Consent [...] that there are some limitations compared to kfpd-ey-imwh evaluations. The patient consented to the presence of additional virtual and/or in-person participants. We elected to proceed. documented in this encounterMercy Health Kings Mills Hospital08-05-2025 Radiology Diagnostic study [facility] [place] [address] Ultrasound Report Signed Patient: Tosha Mcneal MR#: [id number] : 1950 Acct:[id number] Age/Sex: 74 / F ADM Date: 5 Loc: Room: Type: [facility] Attending Dr: Shavon Mustafa MD Ordering [...] Jr., D.OPablo 06/11/2025 1:21 PM Dictation Location: [place] [address] Tech: Cyndi Brown Transcribed By: SRUTHI 06/11/25 1321 Dictated By: Miki Kruse Jr, DO 06/11/25 1319 Signed By: 06/11/[address] [facility]07-14-2025 Miscellaneous Notes* Telephone Encounter - Dee Dee Horton MD - 05/20/2025 11:38 AM EDT Images from the original note were not included. PSG ordered by PCP Wild Centeno DO - please see results and abnormal EKG PPG read/follow Kimber, please offer new patient appointment for RONEN, thanks! Polysomnogram on 2025-05-07 (AHI (3%)=88.1 events/hour; AHI (4%)=22.3 events/hour; Cathy SpO2=85.0%; Kkioqh=855.0 lbs; BMI=40.6 kg/m2) DIAGNOSIS: Obstructive Sleep Apnea (G47.33) COMMENTS: This baseline polysomnogram demonstrates severe obstructive sleep apnea. Of note, there was no REM sleep. The patient's sleep efficiency on the diagnostic night was reduced at 66.1% due to prolonged wake after sleep onset. Sleep was highly fragmented. The automotive refinish technician noted possible hypoxemia versus malfunction of [...] 11:38 AM EDT Called pt and scheduled OCEAN FREIGHT MANAGER vv with JK 06/17/25. Pt headed out of town in near future, had to wait until her return. No other prev ss. Wakes up. Assigned NPQ. Pt encouraged to sleep on sides and/or partially elevated in mean time. documented in this encounterMercy Health Kings Mills Hospital07-14-2025 Telephone encounter Note* Telephone Encounter - Dee Dee Horton MD - 05/20/2025 11:38 AM EDT Images from the original note were not included. PSG ordered by PCP Wild Centeno DO - please see results and abnormal EKG PPG read/follow Kimber, please offer new patient appointment for RONEN, thanks! Polysomnogram on 2025-05-07 (AHI (3%)=88.1 events/hour; AHI (4%)=22.3 events/hour; Cathy SpO2=85.0%; Btheip=672.0 lbs; BMI=40.6 kg/m2) DIAGNOSIS: Obstructive Sleep Apnea (G47.33) COMMENTS: This baseline polysomnogram demonstrates severe obstructive sleep apnea. Of note, there was no REM sleep. The patient's sleep efficiency on the diagnostic night was reduced at 66.1% due to prolonged wake after sleep onset. Sleep was highly fragmented. The automotive refinish technician noted possible hypoxemia versus malfunction of [...] titration study is recommended at this time. [employer] Work Phone: [phone] Telephone encounter Note* Telephone Encounter - Kimber Bansal - 05/20/2025 11:38 AM EDT Called pt and scheduled OCEAN FREIGHT MANAGER vv with JK 06/17/25. Pt headed out of town in near future, had to wait until her return. No other prev ss. Wakes up. Assigned NPQ. Pt encouraged to sleep on sides and/or partially elevated in mean time. [employer]07-08-2025 History of Present illness Narrative* Wild Centeno, [...] mouth in the morning. documented in this encounterMercy Health Kings Mills Hospital06-27-2025 Miscellaneous Notes* Telephone Encounter - Genny Valdovinos - 05/03/2025 1:32 PM EDT Contract: 198 [facility] RE Critical Results * Telephone Encounter - [...] was connected to ultrasound. documented in this [facility]06-27-2025 Telephone encounter Note* Telephone Encounter - Genny Valdovinos - 05/03/2025 1:32 PM EDT Contract: 198 [facility] RE Critical Results [facility]06-27-2025 Telephone encounter Note* Telephone Encounter - Genny Kya Valdovinos - 05/03/2025 1:32 PM EDT Contract: 198 Called Lucy Ansari and LM to call [facility]06-27-2025 Telephone encounter Note* Telephone Encounter - Genny Kya Valdovinos - 05/03/2025 1:32 PM EDT Contract: 198 Called Lucy rendon LM to call [facility]06-27-2025 Telephone encounter Note* Telephone Encounter - Codie Schneider - 05/03/2025 1:32 PM EDT Lucy Ansari called back and was connected to ultrasound. [facility]06-27-[facility] History of Present illness Narrative* Sarah Ansari APRN-AUTUMN - 05/03/2025 9:20 AM EDT [address] [place] [address] [place] [id number] Patient: Tosha Connellyome Date of : 1950 Encounter Date: 05/03/2025 History of Present Illness: The patient is a 74 y.o. female, an established patient, and is here for Chief Complaint Patient presents with Follow-up From last visit. Feels like she has gout in the left foot. . HPI Patient is status post cholecystectomy through [employer] on April 11, 2025. She was discharged [...] Items Addressed This Visit Digestive Morbid obesity ([facility]) Endocrine Type 2 diabetes mellitus ([facility]) Other Visit Diagnoses S/P cholecystectomy - Primary [...] BMI 40.58 kg/m Physical Exam Vitals reviewed. Supply Service Worker present: spouse present. Constitutional: General: She is [...] disease, with long-term current use of insulin([facility]) Localized swelling of left foot - [...] due to swelling in left foot. Called [facility] and she was scheduled for 1pm [...] This plan was collaborated with Dr. Centeno. SARAH ANSARI APRN-TANNER [place] 05/03/25 1038 documented in this encounterMercy Health Kings Mills Hospital06-24-2025 Miscellaneous Notes* Telephone Encounter - Kimberly Carr - 04/30/2025 8:53 AM EDT 04/29 PSG order received Scheduled PSG at [facility] on 05/07/25 Emailed confirmation Med A & B Chatted pre auth for ins add PSG Order and 04/24/25 Chase [facility] Notes * Telephone Encounter - Any Forte - 04/30/2025 8:53 AM EDT AUTH/START PSG([id number])/NPR Medicare A&B primary documented in this encounterMercy Health Kings Mills Hospital06-24-2025 Telephone encounter Note* Telephone Encounter - Kimberly Carr - 04/30/2025 8:53 AM EDT 04/29 PSG order received Scheduled PSG at [facility] on 05/07/25 Emailed confirmation Med A & B Chatted pre auth for ins add PSG Order and 04/24/25 [place] Epic Notes [facility]06-24-2025 Telephone encounter Note* Telephone Encounter - Any Forte - 04/30/2025 8:53 AM EDT AUTH/START PSG([id number])/NPR Medicare A&B primary [facility]06-19-2025 Miscellaneous Notes* Telephone Encounter - Lisa Camarillo - 04/25/2025 2:45 PM EDT 04/24 Order received Scheduled HST at [facility] on 7:30 pm Confirmation emailed Carlita Horton for approval Chat to pre auth Medicare Part A & B MMO Traditional HST Order and 04/24/25 D. [facility] Epic Notes documented in this encounterMercy Health Kings Mills Hospital06-19-2025 Telephone encounter Note* Telephone Encounter - Lisa Camarillo - 04/25/2025 2:45 PM EDT 04/24 Order received Scheduled HST at [facility] on 7:30 pm Confirmation emailed Carlita Horton for approval Chat to pre auth Medicare Part A & B MMO Traditional HST Order and 04/24/25 D. Furlong Epic Notes [facility]06-18-2025 History of Present illness Narrative* Wild [...] visit. She had her gallbladder removed at [facility] in [place]. She was doing okay. She has had [...] Exam Vitals reviewed. Exam conducted with a sterilizer operator present (). Constitutional: General: She is not [...] normal. Assessment/Plan Tosha was seen today for [facility]- gallbladder surgery.- [facility]. Diagnoses and all orders for this visit: S/P laparoscopic cholecystectomy She is slowly improving. She does have diarrhea which maybe a complication of the surgery. I suggested a bile acid sequestrant powder to help with that but she declined. She can use Imodium as needed. Low-fat, high-fiber diet discussed. Morbid obesity ([facility]) She is morbidly obese. She would benefit from weight loss. Patient noted to have elevated BMI and the following intervention(s) were applied: encouragement toexercise and prescribed diet education. Hypersomnia - Home sleep study; Future She has hypersomnia. She scored high on the STOP BANG and borderline on the Arthur sleep scale. Type 2 diabetes mellitus with stage 2 chronic kidney disease, with long-term current use of insulin([facility]) - insulin degludec (TRESIBA FLEXTOUCH U-100) 100 [...] under the skin nightly. documented in this encounterMercy Health Kings Mills Hospital06-09-2025 Miscellaneous Notes* Telephone Encounter - Chaya [...] Discharge Specialty: Other *Name of Discharging Facility: [facility] Date of Facility Discharge: 04.10.25 - 04.13.25 Date of Interactive Contact and Name of Paper Inserter: 04.15.25 @ [facility] - Spoke with patient *Medication Review Completed: [...] Services Utilized/Needed by the Patient: Tanja Jensen [facility] - Start of care completed. [employer] - Home oxygen supplies documented in this encounterMercy Health Kings Mills Hospital06-09-2025 Telephone encounter Note* Telephone Encounter - Chaya [...] Discharge Specialty: Other *Name of Discharging Facility: [facility] Date of Facility Discharge: 04.10.25 - 04.13.25 Date of Interactive Contact and Name of Paper Inserter: 04.15.25 @ [facility] - Spoke with patient *Medication Review Completed: [...] Services Utilized/Needed by the Patient: Tanja Jensen [facility] - Start of care completed. [employer] - Home oxygen supplies [facility]06-[facility]-2025 Miscellaneous Notes* Telephone Encounter - Chelsi Dee RN - 04/15/2025 11:27 AM EDT Transition of Care documented in this encounterMercy Health Kings [facility] Hospital06-09-2025 Telephone encounter Note* Telephone Encounter - Chelsi Dee RN - 04/15/2025 11:27 AM EDT Transition of Care [employer] Work Phone: [phone]) 587-906606-07-2025 History of Present illness Narrative* Herrera Merlos DO - 04/13/2025 1:15 PM EDT [...] IS, pulm toilet, ambulate 3x daily Resume SKIING TEACHER lasix dosing Continue regular diet Monitor UOP [...] Tolerating reg diet. S. Fam Cline MD, [facility] Acute Care Surgery Attending [facility] Specialists * Musa Mathew RCP - 04/12/2025 [...] IS, pulm toilet, ambulate 3x daily Resume SKIING TEACHER lasix dosing Stop mIVF Regular diet Monitor UOP Anticipate home tomorrow as O2 requirements decrease Chief Complaint: can I go home SUBJECTIVE Tosha Mcneal is doing well this AM. Pain is with movement, otherwise resting comfortably on 3L NC. Passing flatus, no nausea OBJECTIVE VITALS: Temp: Temp: 98.4 F (36.9 C)Temp Av.8 F (36.6 C) Min: 97.3 F (36.3 C) Max: 98.4 F (36.9 C) BP Systolic (24hrs), Av , Min:115 , [...] to d/c today. Rhina. Fam Cline MD, [facility] Acute Care Surgery Attending [facility] * Alfred Montejo RN - 04/10/2025 9:39 PM EDT Labs sent. at bedside * Antoni Carr RN - 04/08/2025 2:48 PM EDT Cardiology,moderate risk documented in this encounterBon [facility]06-07-[facility] Hospital Discharge instructions* Discharge Instr - JEANETTE* Herrera Merlos DO - 04/13/2025 9:11 AM EDT Continuity of Care Form Patient Name: Tosha Mcneal : 1950 Admit date: 04/10/2025 Discharge date: 04/13 Code Status Order: Full Code Advance Directives: Date/Time Healthcare Directive Type of Healthcare Directive Copy in Chart Healthcare Agent Appointed Healthcare Agent's Name Healthcare Agent's Phone Number 04/10/25 5784 Yes, patient has an advance directive for healthcare treatment Durable power of privacy attorney for health care;Living will No, copy requested from family Spouse Dayo Mcneal--pt's [phone] Admitting Physician: Rajni Cline MD PCP: Wild Centeno DO Discharging Nurse: cc Discharging Hospital Unit/Room#: 0445/0445-01 Discharging Unit Phone Number: [phone] Emergency Contact: Extended Emergency Contact Information Primary Emergency Contact: Dayo Mcneal [facility] Relation: Spouse Secondary Emergency Contact: Wayne Mcneal Mobile Relation: Child Past Surgical History: Past Surgical History: Procedure Laterality Date CARPAL TUNNEL RELEASE Right CHOLECYSTECTOMY, LAPAROSCOPIC 04/10/2025 CHOLECYSTECTOMY, LAPAROSCOPIC N/A 04/10/2025 LAPAROSCOPIC CHOLECYSTECTOMY performed by Rajni Cline MD at [facility] OR CYST REMOVAL tailbone EYE SURGERY Left fracture repair FRACTURE SURGERY Left left arm IR CHOLECYSTOSTOMY PERCUTANEOUS COMPLETE 03/04/2025 IR CHOLECYSTOSTOMY PERCUTANEOUS COMPLETE 03/04/2025 Tanner Baez MD [facility] SPECIAL PROCEDURES SHOULDER ARTHROSCOPY Left 2019 Dr Levy at [facility] TONSILLECTOMY TOTAL KNEE ARTHROPLASTY Left 10/03/2023 TOTAL KNEE ARTHROPLASTY Left 10/03/2023 KNEE TOTAL ARTHROPLASTY performed by Aly Higgins MD at [facility] OR TUBAL LIGATION Immunization History: Immunization [...] Independent Dressing Independent Toileting Independent Feeding Independent Sailing Officer Independent Med Delivery whole Wound Care Documentation [...] Intake/Output Summary (Last 24 hours) at 04/13/2025 09 Last data filed at 04/13/2025 0317 Gross [...] Status Date: 04/10/25 Readmission Risk Assessment Score: [facility] RISK OF UNPLANNED READMISSION 2.0 18.3 Total Score Discharging to Facility/ Agency Name: Home marlin Jensen [facility] Address: Phone: Fax: Dialysis Facility (if applicable) Name: Address: Dialysis Schedule: Phone: Fax: Exterior Door Installer/Store Assistant signature: EDT PHYSICIAN SECTION Prognosis: Good Condition [...] H&P PHYSICIAN SIGNATURE: documented in this encounterBon [facility]05-20-2025 NotePatient is here today for a 1 month follow from admission to [facility]. Patient states she was in [facility] due to her gall bladder. She has a drain tube draining her gall bladder, patient states there was so much fluid around around her gall bladder. Patient states since she has had the tube her abdomen her ankles have decrease in size. Patient states she is no longer having shortness of breath or swelling. Review of Systems Constitutional: Negative.[facility]05-20-2025 Note Cardiovascular Medicine [facility] SUBJECTIVE Chief Complaint Patient presents with Congestive Heart Failure Hypertension Hyperlipidemia Tosha Mcneal is a 74 y.o. female here for follow-up. HPI PMHx: HFpEF, HTN, HLD 03/26/2025 Since last seen, she was admitted to [facility] with acute cholecystitis. Her troponin levels were [...] , Rfl: ergocalciferol (Vitamin D-2) 1.25 MG (08636 Units) capsule, Take 1 capsule by mouth [...] bruit. Cardiovascular: Rate a (more content not included)...[facility] 03-21-2025 History of Present illness Narrative* Wild Centeno, - 03/21/2025 11:00 AM EDT Subjective Patient ID: Tosha Mcneal is a 74 y.o. female. The patient is here today for discharge follow up from hospital. Transition of Care Med Rec completed? Yes Discharged medications: Medications have been reviewed and reconciled with the most recent facilitydischarge document. Alpa presents today for hospital follow-up. She was admitted to [facility] after she went to [facility] Department 2 weeks ago. She does not recall really and the events around for hospitalization. She said she does not remember 5 days, her being in the hospital. She does remember that she did not feel well her to the ER twice. She was having nausea and vomiting. See what that home back to the first ER visit. At the 1 she was sent to [place]. She does not recall the events. He [...] Exam Vitals reviewed. Exam conducted with a sterilizer operator present ( and Catracho Stroud MS 3). [...] disease, with long-term current use of insulin ([facility]) - Hemoglobin A1c; Future - Hemoglobin A1c Check A1c. The last 2 weeks of her glucometer has been downloaded and it is very good. I am going to stop her Novolin N 60 units and increase her Tresiba 50 units and see how she does. She was encouraged to use the short-acting insulin with each meal. Morbid obesity ([facility]) She is obese. She has lost weight but because she has been sick. It will benefit her overall but would be better if she could lose it through proper diet and exercise. 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 ([facility]) Follow up with specialist as directed Other orders - insulin degludec (TRESIBA FLEXTOUCH U-100) 100 unit/mL (3 mL) insulin pen; Inject 50 Units under the skin nightly. documented in this encounterRutland Regional Medical CenterTravelAI05-07-2025 Miscellaneous Notes* Telephone Encounter - Tressa Campbell CMA - 03/13/2025 3:50 PM EDT [facility] called inquiring about you to follow [...] 3:50 PM EDT NOTIFIED documented in this encounterMercy Health [facility]05-07-2025 Telephone encounter Note* Telephone Encounter - Tressa Campbell CMA - 03/13/2025 3:50 PM EDT [facility] called inquiring about you to follow her with her care. Please advise. Thank you. [facility]05-07-2025 Telephone encounter Note* Telephone Encounter - Wild Centeno DO - 03/13/2025 3:50 PM EDT Sure [facility]05-07-2025 Telephone encounter Note* Telephone Encounter - Amanda Poole CMA - 03/13/2025 3:50 PM EDT They did a SOC today for the patient and is concerned about the blood Sugars. Patient spoke with gissel she states her BS are running 100-140 during the day. Then at night 89-90. Is there any changesthat need to be made? [facility]05-07-2025 Telephone encounter Note* Telephone Encounter - Wild Centeno DO - 03/13/2025 3:50 PM EDT No changes unless she is symptomatic [facility]05-07-2025 Telephone encounter Note* Telephone Encounter - Amanda Poole CMA - 03/13/2025 3:50 PM EDT NOTIFIED [facility]05-05-2025 Miscellaneous Notes* Telephone Encounter - Any [...] Successful ultrasound fluoroscopic guided placement of 8 American cholecystostomy tube. Discharge Specialty: Gastroenterology and Infectious Disease *Name of Discharging Facility: [facility] (admitted 03/03/25) Date of Facility Discharge: 03/10/25 Date of Interactive Contact and Name of Paper Inserter: 03/11/25 at 1:15pm Spoke with patient. *Medication [...] but she declined a full review with comic book writer over the phone. Please reconcile at upcoming visit. *Follow Up Appointments with Providers: Primary: Wild Centeno DO 03/21/25 at 11:00am Specialty: [facility] Cardiology Alfred Roman CNP 03/13/25 at 9:40am Specialty: General Surgery [phone] To schedule. Specialty: Review of Pending Lab/Diagnostic [...] and Other Services Utilized/Needed by the Patient: [employer] Voice message left to confirm they are following for home care services. Patient has not heard fromthem yet. * Telephone Encounter - Wild G Furlong, DO - 03/11/2025 11:05 AM EDT Continue [...] to improve. Verbalized understanding. documented in this encounterMercy Health Kings Mills Hospital05-05-2025 Telephone encounter Note* Telephone Encounter - [...] Successful ultrasound fluoroscopic guided placement of 8 American cholecystostomy tube. Discharge Specialty: Gastroenterology and Infectious Disease *Name of Discharging Facility: [facility] (admitted 03/03/25) Date of Facility Discharge: 03/10/25 Date of Interactive Contact and Name of Paper Inserter: 03/11/25 at 1:15pm Spoke with patient. *Medication [...] but she declined a full review with comic book writer over the phone. Please reconcile at upcoming visit. *Follow Up Appointments with Providers: Primary: Wild Centeno, 03/21/25 at 11:00am Specialty: [facility] Cardiology Alfred Roman, AUTUMN 03/13/25 at 9:40am Specialty: General Surgery [phone] To schedule. Specialty: Review of Pending Lab/Diagnostic [...] and Other Services Utilized/Needed by the Patient: [employer] Donie Cubiez Voice message left to confirm they are following for home care services. Patient has not heard fromthe yet. [facility] centerBlokkd Inc. [phone] Telephone encounter Note* Telephone Encounter - Wild Centeno DO - 03/11/2025 11:05 AM EDT Continue with Imodium and I would add a fiber supplement to give her stool some bulk [employer] [id number] Telephone encounter Note* Telephone Encounter - Any Delatorre RN - 03/11/2025 11:05 AM EDT Contact Type: Direct contact - Phone call with patient - general Patient instructed on provider recommendations. Patient states she is already taking a fiber tabletdaily. She was instructed to call office if symptoms worsen or fail to improve. Verbalized understanding. [facility] CenterQuibly [facility] [id number] Miscellaneous Notes* Telephone Encounter - Chelsi Dee RN - 03/11/2025 9:52 AM EDT GEE Lantiguas 03/10/25 documented in this encounterMercy [facility]05-05-2025 Telephone encounter Note* Telephone Encounter - Chelsi Dee RN - 03/11/2025 9:52 AM EDT GEE Lantiguas 03/10/25 [facility] Work Phone: [phone] Hospital course Narrative* Piter Weems MD - 03/10/2025 11:45 AM EDT Images from the original note were not included. [facility] Office: [phone] Juan F Medina DO, Sami Ghosh DO, [...] Dial MD, Darryl Saha MD, Elinor Granados, ARTERIAL EMBALMER, Sloane Interiano ARTERIAL EMBALMER, Vitor Qureshi, ARTERIAL EMBALMER, Beth Sherwood, [facility], Vale Sesay, ARTERIAL EMBALMER, Jojo Lama, ARTERIAL EMBALMER, Herrera Nick, ARTERIAL EMBALMER, Desire Sarmiento, ARTERIAL EMBALMER, Katrin Haywood PAJavanC, Vika Cuevas, ARTERIAL EMBALMER, Rosa Baez, ARTERIAL EMBALMER, Serenity Mata, ARTERIAL EMBALMER, Aleida Flores,ARTERIAL EMBALMER, NOÉ BalderramaC, Karis Card, ARTERIAL EMBALMER, Milady Villar, [facility], Codie Serra CNP, Bren Palomo ARTERIAL EMBALMER, Lakshmi Drake, ARTERIAL EMBALMER [facility] IN-PATIENT SERVICE [facility] Discharge Summary Patient ID: Tosha Mcneal : 1950 ACCOUNT: [id number] Patient's PCP: Wild Centeno DO Admit Date: [...] for acute cholecystitis. She was brought to [facility] and was evaluated by general surgery for [...] Successful ultrasound fluoroscopic guided placement of 8 American cholecystostomy tube. US ABDOMEN LIMITED Specify organ? [...] Home Physician Follow Up: Rajni Cline MD [address] [facility] [address] [facility] [address] Schedule an appointment as soon as possible for a visit in 2 week(s) to monitor perc jt drain and discuss interval cholecystectomy Wild Centeno, DO [address] [facility] [address] Follow up Requiring Further Evaluation/Follow Up [...] Your Medications These medications were sent to [id number] - [place], [place] - [address] P [phone] - F [phone] [place] [address] amoxicillin-clavulanate 875-125 MG per tablet pantoprazole 40 [...] this patient's care. documented in this encounterBon [facility]05-[facility]25 Hospital Discharge instructions* Discharge Instructions* Piter Weems [...] Hospital Unit/Room#: 0423/0423-01 Discharging Unit Phone Number: [phone] Emergency Contact: Extended Emergency Contact Information Primary Emergency Contact: Dayo Mcneal [facility] Relation: Spouse Secondary Emergency Contact: Wayne Mcneal Mobile Relation: Child Past Surgical History: Past Surgical History: Procedure Laterality Date CARPAL TUNNEL RELEASE Right CYST REMOVAL tailbone EYE SURGERY Left fracture repair FRACTURE SURGERY Left left arm IR CHOLECYSTOSTOMY PERCUTANEOUS COMPLETE 03/04/2025 IR CHOLECYSTOSTOMY PERCUTANEOUS COMPLETE 03/04/2025 Tanner Baez MD [facility] SPECIAL PROCEDURES SHOULDER ARTHROSCOPY Left 2019 Dr Levy at [facility] TONSILLECTOMY TOTAL KNEE ARTHROPLASTY Left 10/03/2023 TOTAL KNEE ARTHROPLASTY Left 10/03/2023 KNEE TOTAL ARTHROPLASTY performed by Aly Higgins MD at [facility] OR TUBAL LIGATION Immunization History: Immunization [...] Independent Dressing Independent Toileting Independent Feeding Independent Sailing Officer Independent Med Delivery whole Wound Care Documentation [...] Inpatient Status Date: Readmission Risk Assessment Score: [facility] RISK OF UNPLANNED READMISSION 2.0 12.4 Total Score Discharging to Facility/ Agency Name: Address: Phone: Fax: Dialysis Facility (if applicable) Name: Address: Dialysis Schedule: Phone: Fax: Exterior Door Installer/Store Assistant signature: {Esignature:665219710} PHYSICIAN SECTION Prognosis: {Prognosis:6463883504} Condition at Discharge: { Patient Condition:584186199} Rehab Potential (if transferring to Rehab): {Prognosis:4088692918} Recommended Labs or Other Treatments After Discharge: Physician Certification: I certify the above information and transfer of Tosha Colleen is necessary for the continuing treatment of the diagnosis listed and that she requires {Admit to Appropriate Level of Care:55023} for {GREATER/LESS:913811639} 30 days. Update Admission H&P: {CHP DME Changes in HandP:075660739} PHYSICIAN SIGNATURE: {Esignature:385060325} documented in this encounterBon [facility]05-04-2025 History of Present illness Narrative* Chacha Mcarthur RN - 03/10/2025 6:34 AM EDT Pts morning labs resulted with a potassium of 3.2 and a magnesium of 1.4. Compliance Reviewer notified provider,see new orders. * Carlos Garcia [...] for acute cholecystitis. She was brought to [facility] and was evaluated by general surgery for [...] [Urine:250; Drains:280] Date 03/09/25 0000 - 03/09/25 235 Shift 3925-8932 6835-2443 6227-8988 24 Hour Total INTAKE Shift Total(mL/kg) OUTPUT Drains(mL/kg) 70(0.7) 20(0.2) 90(0.9) Shift Total(mL/kg) 70(0.7) 20(0.2) 90(0.9) Weight (kg) 103 103 103 103 LABORATORY RESULTS: BLOOD GASES: No results for input(s): POCPH , POCPCO2 , POCPO2 , POCHCO3 , SLMS7YXO in the last 72 hours. COMPLETE BLOOD [...] Successful ultrasound fluoroscopic guided placement of 8 American cholecystostomy tube. US ABDOMEN LIMITED Specify organ? [...] [facility] Office: [phone] Juan F Medina DO, Sami Ghosh DO, [...] Darryl Saha MD, Elinor Granados CNP, Sloane Interiano, ARTERIAL EMBALMER, Vitor Qureshi, ARTERIAL EMBALMER, Beth Sherwood, [facility], Vale Sesay, ARTERIAL EMBALMER, Jojo Lama, ARTERIAL EMBALMER, Herrera Nick, ARTERIAL EMBALMER, Desire Sarmiento, ARTERIAL EMBALMER, Katrin Haywood, NOÉC, Vika Cuevas, ARTERIAL EMBALMER, Rosa Baez, ARTERIAL EMBALMER, Serenity Mata, ARTERIAL EMBALMER, Aleida Flores,ARTERIAL EMBALMER, Roscoe Licea, NOÉC, Karis Card, ARTERIAL EMBALMER, Milady Villar, [facility], Codie Serra, ARTERIAL EMBALMER, Bren Palomo, ARTERIAL EMBALMER, Lakshmi Drake, ARTERIAL EMBALMER [facility] IN-PATIENT SERVICE [facility] Progress Note 03/09/2025 11:49 AM Name: Tosha Mcneal Acct: [id number] Room: 042/0423-01 Day: 6 Admit Date: 03/03/2025 11:22 AM [...] for acute cholecystitis. She was brought to [facility] and was evaluated by general surgery for [...] per day Continuous Infusions: sodium chloride Stopped (03/07/25618) dextrose PRN Meds: melatonin, HYDROmorphone, potassium chloride [...] 260 ml Labs: Hematology: Recent Labs 03/07/25 04503/08/25 0640 03/09/25 0738 WBC 11.3 9.2 8.9 [...] 0611 03/08/25 0640 03/08/25 1104 03/08/25 1521 03/08/25200803/09/25 0738 03/09/25 0830 03/09/25 1128 AST -- [...] 04:25 AM PBEA 1.8 03/05/2025 04:25 AM LBQE9PBR 95.2 03/05/2025 04:25 AM FIO2 10.0 03/05/2025 [...] Successful ultrasound fluoroscopic guided placement of 8 American cholecystostomy tube. US ABDOMEN LIMITED Specify organ? [...] PT - 03/08/2025 9:33 AM EDT Facility/Department: [facility] 3- MICU Physical Therapy Initial Evaluation Patient [...] switched to IV Zosyn and transferred to [facility]. Past Medical History: has a past [...] Level of Assist for Transfers: Independent Active Scagliola Mechanic: Yes Mode of Transportation: Truck Occupation: Retired [...] switched to IV Zosyn and transferred to [facility]. Patient was subsequently brought to [facility] Upon admission, pt was A&O x [...] [x] PPI Agent 40 twice daily, [] P6Tfusa, [] Sucralfate, [] Other: Glycemic control: Medium [...] PROPHYLAXIS: Stress ulcer: [x] PPI Agent [] Q7Yzxsp [] Sucralfate [] Other: VTE: [] Enoxaparin [...] history and exam findings with the resident/fellow/medical student/OCEAN FREIGHT MANAGER/PA. I have seen and examined the patient and the hernandez elements of the encounter have been performed by me. I agree with the assessment, plan and orders as documented by the resident/fellow/medical student/OCEAN FREIGHT MANAGER/PA With changes made to the note [...] Occupational Therapy Occupational Therapy Initial Evaluation Facility/Department: [address] Patient Name: Tosha Mcneal : 1950 [...] switched to IV Zosyn and transferred to [facility]. Patient was subsequently brought to [facility] Upon admission, pt was A&O x [...] Devices: Grab Bars - toilet, Sock-Aid Hard, Welder Apprentice Combination, Walker Basket Assessment Performance deficits / Impairments: [...] Restraints Restraints Initially in Place: No AM-PAC [facility] Daily Activity - Inpatient How much help [...] Level of Assist for Transfers: Independent Active Scagliola Mechanic: Yes Mode of Transportation: Truck Occupation: Retired [...] chair, pt required TA to adjust B poured concrete wall technician socks Toileting: Maximum assistance Toileting Skilled Clinical Factors: pt required CGA for toilet transfer with RW and unilateral support on R grab bar, required TA to complete lisa hygiene. Balance Balance Sitting: Intact;Without support (pt seated in recliner chair and on toilet ~20 minutes total, SBA-SUP overall.) Standing: Intact;With support (pt standing with RW support at [facility] for safety, completed grooming atsink CGA ~5 [...] home safety/fall prevention, energyconservation, and non-pharmaceutical pain absence management consultant to improve overall independence in functional tasks. [...] switched to IV Zosyn and transferred to [facility]. Patient was subsequently brought to [facility] Upon admission, pt was A&O x [...] [x] PPI Agent 40 twice daily, [] E5Hvwzi, [] Sucralfate, [] Other: Glycemic control: Medium [...] C) Axillary 68 18 98 % -- 03/06/258 -- -- -- 69 19 98 % -- 03/06/25 2300 -- -- -- 76 -- 95 % -- 03/06/25 220 (!) 137/34 -- -- 64 18 98 % -- 03/06/252099 (!) 148/45 -- -- 62 21 95 [...] PROPHYLAXIS: Stress ulcer: [x] PPI Agent [] N0Rqdfv [] Sucralfate [] Other: VTE: [] Enoxaparin [...] history and exam findings with the resident/fellow/medical student/OCEAN FREIGHT MANAGER/PA. I have seen and examined the patient and the hernandez elements of the encounter have been performed by me. I agree with the assessment, plan and orders as documented by the resident/fellow/medical student/OCEAN FREIGHT MANAGER/PA With changes made to the note [...] Ricks MD 03/07/2025 1:05 PM * Anna Pyle, VINCE - ARTERIAL EMBALMER - 03/06/2025 11:26 AM EDT Images from [...] nausea. Pressors weaning down on 1 of OBJECTIVE VITALS: Vitals: 03/06/25 1115 BP: Pulse: [...] I have reviewed the above [facility] Special[facility] note(s). I have seen and examined [...] switched to IV Zosyn and transferred to [facility]. Patient was subsequently brought to [facility] Upon admission, pt was A&O x [...] [x] PPI Agent 40 twice daily, [] X2Vybpk, [] Sucralfate, [] Other: Glycemic control: Medium [...] -- 71 18 95 % -- 03/05/25 213 (!) 122/48 -- -- 71 18 91 [...] PROPHYLAXIS: Stress ulcer: [x] PPI Agent [] K3Vcvft [] Sucralfate [] Other: VTE: [] Enoxaparin [...] history and exam findings with the resident/fellow/medical student/OCEAN FREIGHT MANAGER/PA. I have seen and examined the patient and the hernandez elements of the encounter have been performed by me. I agree with the assessment, plan and orders as documented by the resident/fellow/medical student/OCEAN FREIGHT MANAGER/PA With changes made to the note [...] Ricks MD 03/06/2025 8:26 PM * Osiris Rogers DO - 03/05/2025 10:35 AM EDT Images from [...] from the original note were not included. [place] [employer] Progress Note Date: 03/05/2025 Patient name: Tosha [...] (03/05/25 0201) dextrose CBC: Recent Labs 03/04/25 03403/05/25 0457 WBC 11.7* 24.2* HGB 12.7 11.9 [...] ms QTc Calculation (Bazett) 443 ms R Andover -30 degrees T Andover 53 degrees Narrative Normal sinus rhythm Left axis deviation Low voltage QRS Nonspecific T wave abnormality Abnormal ECG When compared with ECG of 03-Mar-2025 11:14, ME interval has decreased T wave inversion no [...] recommendations. Cecilia Low MD Fellow, cardiovascular diseases [facility] 03/05/2025 I performed a history and physical [...] switched to IV Zosyn and transferred to [facility]. Patient was subsequently brought to [facility] Upon admission, pt was A&O x [...] [x] PPI Agent 40 twice daily, [] X2Lbqbi, [] Sucralfate, [] Other: Glycemic control: Medium dose corrective algorithm Spontaneous breathing trial: N/A Bowel regimen/urine output: 1.14 L Indwelling catheter/lines: Came in with Mon's. Urine output 662 De-escalation: Mon catheter if patient is no longer needing it. Gram culture from drainage grew gram negative rods Labs show troponin 108-101-112. Per cardiology type II [place]. Lipase 23 Lactic acid 2.3-1.4 Pro time [...] -- 80 24 95 % -- 03/04/25 2315 (!) -- -- 78 22 94 % -- 03/04/25 2300 (!) -- -- 78 22 94 % -- 03/04/25 224 (!) 82 -- -- 77 22 94 % -- 03/04/25 223 (!) 86/35 -- -- 81 24 94 % -- 03/04/25 2215 119/84 -- -- 88 18 96 % -- 03/04/25 2200 (!) -- -- 83 23 96 % -- 03/04/252144 (!) 98/51 -- -- 83 24 94 % -- 03/04/252129 (!) 102/49 -- -- 80 23 94 % -- 03/04/252114 (!) 91/38 -- -- 78 22 93 % -- 03/04/25 2100 (!) 93/40 -- -- 83 24 91 [...] PROPHYLAXIS: Stress ulcer: [x] PPI Agent [] L7Prnrh [] Sucralfate [] Other: VTE: [] Enoxaparin [...] been diagnosed before. - Patient does follow pollution control chemist but states that she follows just for [...] CL 100 102 102 -- 108* CO2 24 -- 22 BUN 63* 57* 56* -- [...] CAION Heme: Recent Labs 03/03/25 1502 03/04/25 03403/05/25456 HGB 12.6 12.7 11.9 stable PT/INR: Lab [...] 251* MSK: N/A Skin: N/A Prophylaxis: DVT MYRON stockings - thigh High, OK for primary team to initiate chemoprophylaxis at this time, and No chemoprophylaxis anticoagulation at this time. GI: Protonix Dispo [x] Remain in ICU [] Transfer out of ICU CODE STATUS: Full Code DATA: Complete Blood Count: Recent Labs 03/03/25 1502 03/04/2534803/05/25 0457 WBC 11.7* 11.7* 24.2* RBC 4.53 [...] Comprehensive Metabolic Profile: Recent Labs 03/03/25 1502 03/03/25221403/04/25 0349 03/04/25 1401 03/05/25 0457 NA 138 [...] history and exam findings with the resident/fellow/medical student/OCEAN FREIGHT MANAGER/PA. I have seen and examined the patient and the hernandez elements of the encounter have been performed by me. I agree with the assessment, plan and orders as documented by the resident/fellow/medical student/OCEAN FREIGHT MANAGER/PA With changes made to the note [...] switched to IV Zosyn and transferred to [facility]. Patient was subsequently brought to [facility] Upon admission, pt was A&O x [...] [x] PPI Agent 40 twice daily, [] F2Gfsuq, [] Sucralfate, [] Other: Glycemic control: Medium dose corrective algorithm Spontaneous breathing trial: N/A Bowel regimen/urine output: 1.14 L Indwelling catheter/lines: Came in with Mon's. De-escalation: Mon catheter if patient is no longer needing it. Labs show troponin [id number]-hdgdssc Lipase 23 Lactic acid 2.3 Pro time [...] PROPHYLAXIS: Stress ulcer: [x] PPI Agent [] B7Twxio [] Sucralfate [] Other: VTE: [] Enoxaparin [...] been diagnosed before. - Patient does follow pollution control chemist but states that she follows just for [...] 191* MSK: N/A Skin: N/A Prophylaxis: DVT MYRON stockings - thigh High, OK for primary [...] history and exam findings with the resident/fellow/medical student/OCEAN FREIGHT MANAGER/PA. I have seen and examined the patient and the hernandez elements of the encounter have been performed by me. I agree with the assessment, plan and orders as documented by the resident/fellow/medical student/OCEAN FREIGHT MANAGER/PA With changes made to the note [...] Ricks MD 03/04/2025 10:29 PM * Dione Garcia, [facility] - 03/03/2025 4:18 PM EDT PHARMACY NOTE: [...] resident. Patient was just brought in from [facility] on arrival patient is alert and [...] oral intake went to emergency room in [place] last night found to have mild lactic [...] BOO she had Mon's catheter placed in [place] lead warehouse associate. Creatinine was initially greater than 3 BUN [...] and hypovolemia Troponin elevation possible non-ST elevation WY. proBNP elevation Diarrhea by history. History of [...] 03/03/2025 11:53 AM documented in this encounterBon [facility]04-28-2025 NotePROCEDURE: ULTRASOUND GUIDED CHOLECYSTOSTOMY TUBE PLACEMENT MODERATE [...] procedure including the risk, benefits, and alternatives. [place] protocol was followed. Sterile gowns, masks, hats and gloves utilized for maximal sterile barrier. A suitable skin site was prepped and draped in sterile fashion following ultrasound localization. An Accustick needle and then she was advanced under ultrasound guidance into the gallbladder and a 0.035 guidewire was used to place a 8 American cholecystostomy tube after the fascial tract was [...] Successful ultrasound fluoroscopic guided placement of 8 American cholecystostomy tube. Interpreted by: Tanner Baez MD Signed by: Tanner Baez MD 03/04/25 [facility]Hol[facility] System04-[facility]-2025 NoteCardiovascular Medicine [place] [facility] SUBJECTIVE Chief Complaint Patient presents with Edema [...] , Rfl: ergocalciferol (Vitamin D-2) 1.25 MG (16589 Units) capsule, Take 1 capsule by mouth [...] Palpations: Abdomen is soft. (more content not included)...[facility]04-15-2025 Note Patient requested an appointment due to [...] leg swelling. Respiratory: Positive for shortness of breath.[facility]04-04-2025 Miscellaneous Notes* Telephone Encounter - Wild Centeno DO - 02/08/2025 11:02 AM EDT Rx sent in. She is due for a diabetic /CV recheck documented in this encounterUniversity [facility]als [facility] Cubiez [id number] Telephone encounter Note* Telephone Encounter - Wild Centeno DO - 02/08/2025 11:02 AM EDT Rx sent in. She is due for a diabetic /CV recheck [facility] Cubiez [id number] NotePatient here for 2 week follow up [...] swelling. All other systems reviewed and are negative.[facility] 01-17-2025 NoteCardiovascular Medicine [place] [facility] SUBJECTIVE Chief Complaint Patient presents with [...] , Rfl: ergocalciferol (Vitamin D-2) 1.25 MG (84038 Units) capsule, Take 1 capsule by mouth [...] warm and dry. Ne (more content not included)...[facility]03-12-2025 NoteUrology Office/Clinic Note Chief Complaint referral HPI [...] Unspecified hydronephrosis) CT AP w con 12/13/23 [facility] - Unremarkable kidneys and bladder. Personal review: Minimal R hydro. CT AP w con 12/11/24 [facility] - No enhancing renal mass renal mass. [...] Information Ramsey JUAREZ, Shavon Lin, URL, URO [address] [address] [phone] Additional Instructions: 3 mos w/ GRACE Patient Education Hydronephrosis Chaya Osborne, personally scribed for Dr. Mustafa on 01/16/2025 10:08:16. . Documentation recorded by the Chaya haro, accurately reflects the services(s) I performed and [...] Stroke: Mother. Immunizations Vaccin (more content not included)...[facility]:Result Comment: Electronically Signed By: Shavon Mustafa MD\.br\Date and Time Signed: 01/16/25 10:28EDT\.br\Electronically Co-Signed By: Chaya Alicea\.br\Date and Time Co-Signed: 01/16/25 10:08 [id number] NotePatient Education Urology Hydronephrosis Hydronephrosis is the [...] Follow these instructions at home: ??? Take afkd-guc-yinoigj and prescription medicines only as told by [...] provider. Document Revised: 02/10/2021 Document Reviewed: 02/10/2021 [employer] Patient Education ? 2023 Camera360.[facility] 01-03-2025 NoteCardiovascular Medicine [place] [facility] SUBJECTIVE Chief Complaint Patient presents with [...] , Rfl: ergocalciferol (Vitamin D-2) 1.25 MG (62396 Units) capsule, Take 1 capsule by mouth [...] No results found f (more content not included)...[facility]02-27-2025 NotePatient here for 6 mo follow up [...] other systems reviewed and are negative.[facility] 12-26-2024 Evaluation note* Diagnosis Onset Date Resolution Status Admit Date Enlarged pituitary gland acuteFebruary 2024 12:47pmMalignant melanoma of right upper limb, including shoulderacuteFebruary 2024 12:47pmDiabetes mellituschronic December 26, 2024 12:47pmEnlarged pituitary glandacuteFebruary 2024 12:59pmDiabetes mellituschronicFebruary 2024 12:59pmEncounter for antineoplastic immunotherapychronicFebruary 2024 12:59pmMelanomachronic December 26, 2024 12:59pm [facility] Work Phone: [phone] 237-361610-14-2024 Miscellaneous Notes* Telephone Encounter - Leslie Lawton - 08/20/2024 1:30 PM EDT Vitiamin d 2 needs sent as well documented in this encounterRutland Regional Medical CenterOrexo [id number] Telephone encounter Note* Telephone Encounter - Lesliemehdi Lawton - 08/20/2024 1:30 PM EDT Vitiamin d 2 needs sent as well [facility] History of Present illness Narrative* TANNER Ramirez - 08/16/2024 3:20 PM EDT Images from the original note were not included. [address] [facility] [id number] SUBJECTIVE: Patient ID: Tosha Mcneal is a [...] TANNER Ramirez 08/20/24 1252 documented in this encounterMercy Health [facility]09-09-2024 History of Present illness Narrative* Wild Centeno, - 07/16/2024 8:30 AM EDT Subjective Patient ID: Tosha Mcneal is a 73 y.o. female. Alpa presents today for a general recheck for multiple problems. She is taking her medications except her insulin. She is not having any side effects. 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 Check A1c and ACR. Type 2 diabetes mellitus with stage 3a chronic kidney disease, with long-term current use of insulin ([facility]) - TSH; Future Check TSH. Enlarged pituitary gland ([facility]) Check TSH Morbid obesity ([facility]) Check TSH. She would benefit from weight loss. It is contributing to diabetes, high blood pressure and high cholesterol. Other orders - furosemide (LASIX) 40 mg tablet; Take 1 tablet (40 mg total) by mouth daily. - clobetasoL (TEMOVATE) 0.05 % ointment; Apply 1 Application topically in the morning and 1 Application before bedtime. documented in this encounterMercy Health Kings Mills Hospital08-07-2024 Miscellaneous Notes* Telephone Encounter - Amanda Poole CMA - 06/13/2024 12:29 PM EDT Patient was prescribed a cream for dryness of her skin on the outside of private area. She said Irene prescribed it years ago. Can you please look and see what it might be and send a script in for this? documented in this encounterMercy Health Kings Mills Hospital08-07-2024 Telephone encounter Note* Telephone Encounter - Amanda Poole CMA - 06/13/2024 12:29 PM EDT Patient was prescribed a cream for dryness of her skin on the outside of private area. She said Irene prescribed it years ago. Can you please look and see what it might be and send a script in for this? [facility]07-16-2024 Miscellaneous Notes* Telephone Encounter - Leslie Lawton - 05/22/2024 11:44 AM EDT Patient called and is due for a mammo and would like it sent to the [facility]. Please and thank you documented in this encounterUniversity Hospitals [facility] Center Cubiez [id number] Telephone encounter Note* Telephone Encounter - Leslie Lawton - 05/22/2024 11:44 AM EDT Patient called and is due for a mammo and would like it sent to the [facility]. Please and thank you [facility] [id number] History of Present illness Narrative* Wild Dent Chase, DO - 03/20/2024 11:10 AM EDT Subjective [...] Do you have a durable power of privacy attorney?: Yes Cognitive Screening Do you have [...] 1 year (around 03/20/2025). documented in this encounterPike [facility] HospitalPredicSis [facility] [id number] History of Present illness Narrative* Wild Centeno DO - 01/11/2024 11:00 AM EST Subjective Patient ID: Tosha cMneal is a 73 y.o. female. Tosha presents [...] disease, with long-term current use of insulin ([facility]) - Comprehensive metabolic panel; Future - Hemoglobin A1c; Future - Magnesium; Future - Parathyroid Hormone, intact; Future - Phosphorus; Future - Vitamin D 25 hydroxy; Future Check A1c and CKD labs Gout, unspecified cause, unspecified chronicity, unspecified site - Uric acid; Future Check uric acid Mixed hyperlipidemia - Lipid panel; Future jheck lipid panel Morbid obesity ([facility]) She is obese. It is contributing to DM HTN and high cholesterol . She would benefit from wt loss. 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 ([facility]) F/U with specialists as dir. documented in this encounterPike Community HospitalPredicSis [facility] [id number] History of Present illness Narrative* Wild Centeno [...] over time. 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 ([facility]) GFR reviewed and is stable at 55. No dosing adjustments required. Other orders - allopurinoL (ZYLOPRIM) 100 mg tablet; Take 1 tablet (100 mg total) by mouth in the morning. Startafter flare up resolves. documented in [facility]06[facility]2023 Progress note Author Rose Ohara [facility] April 13, 2023 5:59pmNote Date/TimeJune 2022 9:30amRol[facility] at [address] [address] Hem/Onc Follow Up Note - OP Signed Patient: Tosha Mcneal MR#: [id number] : 1950 Acct:[id number] Age/Sex: 72 / F Type: REG RCR [...] leaving for a cruise to [place] this month.Continue 4 month followup with axillary ultrasound prior to visit, sooner prn. Low complexity 25 minute followup of exam and axillary US. 12/23/2022: Tosha is here for 3-month follow-up and review of 6-month surveillance CT chest abdomen pelvis for restaging stage III melanoma. She completed 1 year of adjuvant Nivolumab in January 2022.No interval changes in medical history and has her scheduled dermatology follow-up in January. No evid ence of recurrence on CT chest abdomen pelvis [...] and review of exam and surveillance right axillaryultrasound. She was seen by dermatology 1 month [...] related toxicities. Now following with dermatology at [facility] with no recurrence on skin exam. Surveillance ultrasound right axilla without recurrence. She will have routing f/u with [place] [address] CAP and [...] her MRI of brain her baseline did sh ow borderline enlargement of the pituitary without mass [...] general surgery with Dr. Hernando Mccartney who proceededwith wide local excision 09/05/[address] [facility]. Outside review at [facility] showed at least 2.1 cm Breslow depth melanoma with 2 cm negative margins. She was referred to Dr. Jiang at [facility]. Right axillary sentinel lymph node biopsy performed [...] follow-up liver ultrasound on 01/09/2021 which was unremarkablewith no visible liver lesion. Her case was presented at [facility] cutaneous tumor board on 1prior to her metastatic staging. Discussion of referral to medical oncology fordiscussion of immunotherapy. The patientis now returning for medical oncology follow-up after review of all prior pathology and imaging. BRAF status is stillpending. She has healed well. She is a 10-year history of diabetes. She resides [facility]. Today we reviewed immunotherapy counseling for nivolumab. Although PET/CT was indeterminate for metastatic disease to liver, negative ultrasound warrants treatment of this for curative intent. Commontoxicities were reviewed to include infusion reactions, rash, fatigue, diarrhea, visual changes, abnormalities of thyroid/adrenal/pituitary function, pancreatitis, and other autoimmune toxicities. Other toxicities may include pneumonitis, neurologic, hepatic and renal toxicities. The patient signedinformed consent and will follow-up as directed. - Summary of Therapies Summary of Therapies: 1. Initial wide local excision at [facility] 09/05/[address] Hernando Mccartney 2. Right sentinel lymph node biopsy 11/28/2020 at [facility] by Dr. Diallo Berger 3. Delay of [...] injector 0.75 mg subcut QWEEK DIABETES 04/11/19 [HistoryConfirmed 04/13/23] lisinopril 40 mg tablet 40 mg [...] mg tablet,delayed release 81 mg PO DAILY 11/25/20 [History Confirmed 04/13/23] spironolactone 25 mg tablet [...] lesion is well healed from wide local excisi on. Right axilla well-healed without palpable adenopathy. EXTREMITIES: [...] Sodium 140, Potassium 4.8, Chloride 102, Carbon Ubgtauq52.2, Anion Gap 15.6 H, BUN 34 H, Creatinine 1.01, Est GFR (CKD-EPI) 58.780, Glucose 203 H, Calcium9.1, Total Bilirubin 0.9, AST 16, ALT 17, Alkaline Phosphatase 57, Lactate Dehydrogenase 120 L, Total Protein 6.7, Albumin 4.1, Globulin 2.6, Albumin/Globulin Ratio 1.6 04/12/23 09:13: Corrected WBC 6.9, Uncorrected WBC Count 6.9, RBC 4.62, Hgb 13.5, Hct 41.4, MCV 89.4, MCH 29.3, MCHC 32.7, RDW 14.7, Plt Count 197, MPV 8.3,Neut % (Auto) 62.3, Lymph % (Auto) 26.0, Saunders % (Auto) 8.6, Eos % (Auto) 2.2, Baso % (Auto) 0.9, Nucleat RBC Rel Count 0.1, Neut # (Auto) 4.3, Lymph # (Auto) 1.8, Saunders # (Auto) 0.6, Eos # (Auto) 0.2, [...] Plan - TNM Staging Staging: Stage: pIIIC ([id number]) Melanoma 5 year survival: 69% (1) Melanoma Qualifiers: Melanoma location: upper extremity including shoulder Laterality: right Qualified Code(s): C43.61 -Malignant melanoma of right upper limb, including shoulder [...] [facility] surgical oncology group ordered metastatic staging with MRI of brain which revealed borderline enlargement of pituitary but was negative for metastatic disease.PET/CT showed indeterminate uptake in the hepatic parenchyma. Subsequent liver ultrasound was negative for metastatic disease. 02/23/2021: Patient started adjuvant immunotherapy with checkpoint inhibitor nivolumab 480 mg IV every 4 weeks for 12 cycles. At follow-up 03/23/2021 she hadno immunotherapy related toxicities noted bysymptoms, exam, or laboratories. 06/29/2021: No concerning symptoms [...] from prior 1.1. No prior history of renalinsufficiency and likely medical renal disease. She was encouraged to hydrate and follow-up with primary physician. Next follow-up with me for CT chest abdomen pelvis with surveillance labs CBC, CMP,and LDH in 3 months or sooner asneeded. [...] at primary site. Surveillance ultrasound right axilla withoutenlarging lymph nodes or pathologic thickening of cortex. We will continue surveillance with follow-up symptom review, exam, and 3-month CT chest abdomen pelvis to monitor for metastatic disease and defer next surveillance right axillary ultrasound for 6 months. She may return sooner if new issues arise. 12/23/2022: 3-month follow-up with no new concerning symptoms. She is now 2-1/2 years from diagnosisand nearly 1 year from completion of Nivolumab [...] this low complexity 25-minute visit to review symptoms,imaging noted above, and labs after completing immunotherapyMar2021. 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 She has no headaches or visual changes and we repeated her MRI of brain for surveillance at 6 months in June 2021--no interval change of prominent pituitary stalk. We may follow forsymptoms only. (3) Diabetes mellitus Qualifiers: Chronic kidney [...] minutes - Low complexity, exam, lab review, radiologyreview right axillary US, and follow-up plan Coordination of Care & Counseling Time: Greater than 50% of time spent with patient was for coordination of care (as documented) and [id number] counseling of patient and/or family. Dictated By: Rose Ohara MD DD/ [id number] Signed By: <Electronically signed by MD Rose Ohara> 04/13/23 [address] [facility] Work Phone: 1(887) 812-592002-16-2023 Progress note Author Rose Ohara [facility] December 23, 2022 11:01amNote Date/TimeFebruary 2022 9:06[facility] [place] [address] Hem/Onc Follow Up Note - OP Signed Patient: Tosha Mcneal MR#: [id number] : 1950 Acct:[id number] Age/Sex: 72 / F Type: REG RCR [...] 1 year of adjuvant Nivolumab in January 2022.No interval changes in medical history and has her scheduled dermatology follow-up in January. No evid ence of recurrence on CT chest abdomen pelvis [...] and review of exam and surveillance right axillaryultrasound. She was seen by dermatology 1 month [...] related toxicities. Now following with dermatology at [facility] with no recurrence on skin exam. Surveillance ultrasound right axilla without recurrence. She will have routing f/u with [place] [address] CAP and [...] with negative liver ultrasound in January and herborderline enlargement of the pituitary noted on baseline [...] general surgery with Dr. Hernando Mccartney who proceededwith wide local excision 09/05/[address] [facility]. Outside review at [facility] showed at least 2.1 cm Breslow depth melanoma with 2 cm negative margins. She was referred to Dr. Jiang at [facility]. Right axillary sentinel lymph node biopsy performed [...] follow-up liver ultrasound on 01/09/2021 which was unremarkablewith no visible liver lesion. Her case was presented at [facility] cutaneous tumor board on 12/15/2020rior to her metastatic staging. Discussion of referral to medical oncology fordiscussion of immunotherapy. The patientis now returning for medical oncology follow-up after review of all prior pathology and imaging. BRAF status is stillpending. She has healed well. She is a 10-year history of diabetes. She resides [facility]. Today we reviewed immunotherapy counseling for nivolumab. Although PET/CT was indeterminate for metastatic disease to liver, negative ultrasound warrants treatment of this for curative intent. Commontoxicities were reviewed to include infusion reactions, rash, fatigue, diarrhea, visual changes, abnormalities of thyroid/adrenal/pituitary function, pancreatitis, and other autoimmune toxicities. Other toxicities may include pneumonitis, neurologic, hepatic and renal toxicities. The patient signedinformed consent and will follow-up as directed. - Summary of Therapies Summary of Therapies: 1. Initial wide local excision at [facility] 09/05/[address] Hernando Mccartney 2. Right sentinel lymph node biopsy 11/28/2020 at [facility] by Dr. Diallo Berger 3. Delay of [...] for environmental allergies and food allergies. [facility] - History Attestation statement: The following [...] injector 0.75 mg subcut QWEEK DIABETES 04/11/19 [HistoryConfirmed 12/23/22] hydrochlorothiazide 25 mg tablet 25 mg [...] % (Auto) 60.2, Lymph % (Auto) 24.8, Saunders % (Auto) 11.9, Eos % (Auto) 1.9, Baso % (Auto) 1.2, Nucleat RBC Rel Count 0.2, Neut # (Auto) 4.1,Lymph # (Auto) 1.7, Saunders # (Auto) 0.8, Eos # (Auto) 0.1, Baso # (Auto) 0.1 12/21/22 08:50: PHA Creatinine Clear 65.16, Sodium 140, Potassium 4.8, Chloride 102, Carbon Psstiqm95.1, Anion Gap 16.7 H, BUN 24 H, Creatinine 0.85, Est GFR ( Amer) > 60, Est GFR (Non-Af Amer) > 60, Glucose 137 H, Calcium 9.6, Total Bilirubin 1.1, AST 20, ALT 21, Alkaline Nxsjrxmtcba95, Lactate Dehydrogenase 141, Total Protein 7.0, Albumin 4.1, Globulin 2.9, Albumin/Globulin Ratio1.4 - Impressions CT CHEST, ABDOMEN AND PELVIS [...] Plan - TNM Staging Staging: Stage: pIIIC ([id number]) Melanoma 5 year survival: 69% (1) Melanoma Qualifiers: Melanoma location: upper extremity including shoulder Laterality: right Qualified Code(s): C43.61 -Malignant melanoma of right upper limb, including shoulder [...] [facility] surgical oncology group ordered metastatic staging with MRI of brain which revealed borderline enlargement of pituitary but was negative for metastatic disease.PET/CT showed indeterminate uptake in the hepatic parenchyma. [...] patient showing no evidence of recurrence, and 6-month follow-up PET/CT and follow-up brain [...] 2022 ultrasound ordered with f/u labs CBC, CMP,LDH, and TSH. 04/01/2022: Here for 3-month follow-up after completing 1 year of immunotherapy for stage III melanoma in January 2022. Surveillance right axillary ultrasound without evidence of recurrence. Her only change in laboratories is mild increase of creatinine to 1.4 from prior 1.1. No prior history of renalinsufficiency and likely medical renal disease. She was encouraged to hydrate and follow-up with primary physician. Next follow-up with [place] for CT chest abdomen pelvis with surveillance labs CBC, CMP,and LDH in 3 months or sooner as [...] at primary site. Surveillance ultrasound right axilla withoutenlarging lymph nodes or pathologic thickening of cortex. We will continue surveillance with follow-up symptom review, exam, and 3-month CT chest abdomen pelvis to monitor for metastatic disease and defer next surveillance right axillary ultrasound for 6 months. She may return sooner if new issues arise. 12/23/2022: 3-month follow-up with no new concerning symptoms. She is now 2-1/2 years from diagnosisand nearly 1 year from completion of Nivolumab [...] this low complexity 25-minute visit to review symptoms,imaging noted above, and labs after completing immunotherapy. 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 She has no headaches or visual changes and we repeated her MRI of brain for surveillance at 6 months in June 2021--no interval change of prominent pituitary stalk. We may follow forsymptoms only. (3) Diabetes mellitus Qualifiers: Chronic kidney [...] minutes - Low complexity, exam, lab review, radiologyreview CT chest abdomen pelvis, and follow-up plan Coordination of Care & Counseling Time: Greater than 50% of time spent with patient was for coordination of care (as documented) and [id number] counseling of patient and/or family. Dictated By: Rose Ohara MD DD/ 4 Signed By: <Electronically signed by MD Rose Ohara> 12/23/22 [address] [facility] Work Phone: 1(436) 263-466311-17-2022 Progress note Author Rose Ohara [facility] September 23, 2022 10:21amNote Date/TimeNov2021 8:36[facility] [place] [address] Hem/Onc Follow Up Note - OP Signed Patient: Tosha Mcneal MR#: [id number] : 1950 Acct:[id number] Age/Sex: 71 / F Type: REG RCR Copies to: DO Mohan Haddad MD~ Subjective Date/Time of Service: Date of Service: 09/23/2022 Time of Service: 08:35 Chief Complaint: Patient is here today for a 3 month follow up to go over labs and extremity ultrasound. No new concerns HPI: 09/23/2022: Tosha is here for 3 month followup and review of exam and surveillance right axillaryultrasound. She was seen by dermatology 1 month [...] related toxicities. Now following with dermatology at [facility] with no recurrence on skin exam. Surveillance ultrasound right axilla without recurrence. She will have routing f/u with [place] in [address] CAP and [...] with negative liver ultrasound in January and herborderline enlargement of the pituitary noted on baseline [...] proceeded with wide local excision 09/05/[address] [facility]. Outside review at [facility] showedat least 2.1 cm Breslow depth melanoma with 2 cm negative margins. She was referred to Dr. Diallo Berger at [facility]. Right axillary sentinel lymph node biopsy performed [...] Her case was presented at [facility] cutaneous tumor board on 1prior to her metastatic staging. Discussion of referral to medical oncology fordiscussion of immunotherapy. The patientis now returning for medical oncology follow-up after review of all prior pathology and imaging. BRAF status is stillpending. She has healed well. She is a 10-year history of diabetes. She resides [facility]. Today we reviewed immunotherapy counseling for nivolumab. Although PET/CT was indeterminate for metastatic disease to liver, negative ultrasound warrants treatment of this for curative intent. Commontoxicities were reviewed to include infusion reactions, rash, fatigue, diarrhea, visual changes, abnormalities of thyroid/adrenal/pituitary function, pancreatitis, and other autoimmune toxicities. Other toxicities may include pneumonitis, neurologic, hepatic and renal toxicities. The patient signedinformed consent and will follow-up as directed. - Summary of Therapies Summary of Therapies: 1. Initial wide local excision at [facility] 09/05/[address] Hernando Mccartney 2. Right sentinel lymph node biopsy 11/28/2020 at [facility] by Dr. Diallo Berger 3. Delay of [...] injector 0.75 mg subcut QWEEK DIABETES 04/11/19 [HistoryConfirmed 09/23/22] hydrochlorothiazide 25 mg tablet 25 mg [...] cit 4.5 mg-lutein 2.5 mg-zeaxan chew tablet ([facility]) 1 tab PO DAILY eye health 04/11/19 [...] 1.2, AST 17, ALT 16, Alkaline Phosphatase 45,Lactate Dehydrogenase 106, Total Protein 6.5, Albumin 3.7, Globulin 2.8, Albumin/Globulin Ratio 1.3 09/22/22 09:54: Corrected WBC 6.9, Uncorrected WBC Count 6.9, RBC 4.79, Hgb 13.9, Hct 43.2, MCV 90.2, MCH 29.0, MCHC 32.2, RDW 14.7, Plt Count 227, MPV 8.0,Neut % (Auto) 65.7, Lymph % (Auto) 21.6, Saunders % (Auto) 9.7, Eos % (Auto) 2.0, Baso % (Auto) 1.0, Neut # (Auto) 4.5, Lymph # (Auto) 1.5, Saunders # (Auto) 0.7, Eos# (Auto) 0.1, Baso [...] nodes on the right none of which appearto be pathologically enlarged or contain a pathologically thickened cortex. Close clinical observation is recommended. ASSESSMENT: BIRADS-2 Benign RECOMMENDATION: Close clinical observation of these lymph nodes is recommended with repeat imaging as symptoms warrant. Impression dictated by: Litzy Boggs M.D.09/21/2022 10:15 AM Assessment and Plan - TNM Staging Staging: Stage: pIIIC ([id number]) Melanoma 5 year survival: 69% (1) Melanoma Qualifiers: Melanoma location: upper extremity including shoulder Laterality: right Qualified Code(s): C43.61 -Malignant melanoma of right upper limb, including shoulder [...] [facility] surgical oncology group ordered metastatic staging with MRI of brain which revealed borderline enlargement of pituitary but was negative for metastatic disease.PET/CT showed indeterminate uptake in the hepatic parenchyma. Subsequent liver ultrasound was negative for metastatic disease. 02/23/2021: Patient started adjuvant immunotherapy with checkpoint inhibitor nivolumab 480 mg IV every 4 weeks for 12 cycles. At follow-up 03/23/2021 she hadno immunotherapy related toxicities noted bysymptoms, exam, or laboratories. 06/29/2021: No concerning symptoms [...] from prior 1.1. No prior history of renalinsufficiency and likely medical renal disease. She was encouraged to hydrate and follow-up with primary physician. Next follow-up with me for CT chest abdomen pelvis with surveillance labs CBC, CMP,and LDH in 3 months or sooner asneeded. [...] at primary site. Surveillance ultrasound right axilla withoutenlarging lymph nodes or pathologic thickening of cortex. We will continue surveillance with follow-up symptom review, exam, and 3-month CT chest abdomen pelvis to monitor for metastatic disease and defer next surveillance right axillary ultrasound for 6 months. She may return sooner if new issues arise. Patient is in agreement with this plan over this low complexity 20-minute visit to review symptoms,imaging noted above, and labs after completing immunotherapy. 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 She has no headaches or visual changes and we repeated her MRI of brain for surveillance at 6 months in June 2021--no interval change of prominent pituitary stalk. We may follow forsymptoms only. (3) Diabetes mellitus Qualifiers: Chronic kidney [...] 20 minutes - Low complexity, exam, lab review,and radiology review Coordination of Care & Counseling Time: Greater than 50% of time spent with patient was for coordination of care (as documented) and [id number] counseling of patient and/or family. Dictated By: Rose Ohara MD DD/ [id number] Signed By: <Electronically signed by MD Rose Ohara> 09/23/22 [address] [facility] Work Phone: 1(498) 578-230708-25-2022 Progress note Author Rose Ohara [facility] July 01, 2022 8:35pmNote Date/TimeAugust 2021 10:39[facility] [place] [address] Hem/Onc Follow Up Note - OP Signed Patient: Tosha Mcneal MR#: [id number] : 1950 Acct:[id number] Age/Sex: 71 / F Type: REG RCR [...] related toxicities. Now following with dermatology at [facility] with no recurrence on skin exam. Surveillance ultrasound right axilla without recurrence. She will have routing f/u with [place] in [address] CAP and [...] proceeded with wide local excision 09/05/[address] [facility]. Outside review at [facility] showedat least 2.1 cm Breslow depth melanoma with 2 cm negative margins. She was referred to Dr. Diallo Berger at [facility]. Right axillary sentinel lymph node biopsy performed [...] Her case was presented at [facility] cutaneous tumor board on 12/15/2020rior to her metastatic staging. Discussion of referral to medical oncology fordiscussion of immunotherapy. The patientis now returning for medical oncology follow-up after review of all prior pathology and imaging. BRAF status is stillpending. She has healed well. She is a 10-year history of diabetes. She resides [facility]. Today we reviewed immunotherapy counseling for nivolumab. Although PET/CT was indeterminate for metastatic disease to liver, negative ultrasound warrants treatment of this for curative intent. Commontoxicities were reviewed to include infusion reactions, rash, fatigue, diarrhea, visual changes, abnormalities of thyroid/adrenal/pituitary function, pancreatitis, and other autoimmune toxicities. Other toxicities may include pneumonitis, neurologic, hepatic and renal toxicities. The patient signedinformed consent and will follow-up as directed. - Summary of Therapies Summary of Therapies: 1. Initial wide local excision at [facility] 09/05/[address] Hernando Mccartney 2. Right sentinel lymph node biopsy 11/28/2020 at [facility] by Dr. Diallo Berger 3. Delay of [...] for environmental allergies and food allergies. [facility] - History Attestation statement: The following [...] injector 0.75 mg subcut QWEEK DIABETES 04/11/19 [HistoryConfirmed 07/01/22] hydrochlorothiazide 25 mg tablet 25 mg [...] Sodium 139, Potassium 4.9, Chloride 102, Carbon Tiezbgu91.6, BUN 21, Creatinine 0.87, Est GFR ( [...] % (Auto) 66.8, Lymph % (Auto) 18.8, Saunders % (Auto) 9.5, Eos % (Auto) 3.7, Baso % (Auto) 1.2, Neut # (Auto) 5.6, Lymph # (Auto) 1.6, Saunders # (Auto) 0.8, Eos #(Auto) 0.3, Baso [...] There is a normal appendix in the rightlower quadrant. Mesenteric Lymph Nodes: No enlarged mesenteric lymph nodes. Peritoneum: No ascites or free air, no fluid collection. Vessels: Atherosclerotic changes are noted in the abdominal aorta and its branches. Retroperitoneum: within normal limits. Abdominal Wall: within normal limits. Bones: Degenerative changes are noted in the thoracolumbar spine. Degenerative changes are noted inthe hips and sacroiliac joints. CT/CT chest w con IMPRESSION: No evidence of recurrent or metastatic disease. No acute cardiopulmonary pathology. No acute intra-abdominal pathology. Impression dictated by: Litzy Boggs M.D.06/29/2022 2:47 PM Assessment and Plan - TNM Staging Staging: Stage: pIIIC ([id number]) Melanoma 5 year survival: 69% (1) Melanoma Qualifiers: Melanoma location: upper extremity including shoulder Laterality: right Qualified Code(s): C43.61 -Malignant melanoma of right upper limb, including shoulder [...] [facility] surgical oncology group ordered metastatic staging with MRI of brain which revealed borderline enlargement of pituitary but was negative for metastatic disease.PET/CT showed indeterminate uptake in the hepatic parenchyma. Subsequent liver ultrasound was negative for metastatic disease. 02/23/2021: Patient started adjuvant immunotherapy with checkpoint inhibitor nivolumab 480 mg IV every 4 weeks for 12 cycles. At follow-up 03/23/2021 she hadno immunotherapy related toxicities noted bysymptoms, exam, or laboratories. 06/29/2021: No concerning symptoms [...] from prior 1.1. No prior history of renalinsufficiency and likely medical renal disease. She was encouraged to hydrate and follow-up with primary physician. Next follow-up with me for CT chest abdomen pelvis with surveillance labs CBC, CMP,and LDH in 3 months or sooner as needed. 07/01/2022: 3 month followup, now 5 months from completion of immunotherapy for Stage III melanoma. Restaging CT CAP shows no metastases. Unremarkable exam and labs. Next follow-up with me in 3 months unless new issues arise. Patient is in agreement with this plan over this low complexity 20-minute visit to review symptoms,imaging noted above, and labs after completing immunotherapy. 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 She has no headaches or visual changes and we repeated her MRI of brain for surveillance at 6 months in June 2021--no interval change of prominent pituitary stalk. We may follow forsymptoms only. (3) Diabetes mellitus Qualifiers: Chronic kidney [...] for coordination of care (as documented) and jhlu-dj-kckf counseling of patient and/or family. Dictated By: Rose Ohara MD DD/ 1038 Signed By: <Electronically signed by MD Rose Ohara> 07/01/222034 [facility] Work Phone: 1([phone]) 919-581505-26-2022 Progress note Author Rose Ohara [facility] April 01, 2022 1:09pmNote Date/TimeMay 2021 1:30pmRol[facility] [place] [address] Hem/Onc Follow Up Note - OP Signed Patient: Tosha Mcneal MR#: [id number] : 1950 Acct:[id number] Age/Sex: 71 / F Type: REG RCR [...] related toxicities. Now following with dermatology at [facility] with no recurrence on skin [...] with negative liver ultrasound in January and herborderline enlargement of the pituitary noted on baseline [...] proceeded with wide local excision 09/05/[address] [facility]. Outside review at [facility] showedat least 2.1 cm Breslow depth melanoma with 2 cm negative margins. She was referred to Dr. Diallo Berger at [facility]. Right axillary sentinel lymph node biopsy performed11/28/2020 [...] liver ultrasound on 01/09/2021 which was unremarkable withno visible liver lesion. Her case was presented at [facility] cutaneous tumor board on 1prior to her metastatic staging. Discussion of referral to medical oncology fordiscussion of immunotherapy. The patientis now returning for medical oncology follow-up after review of all prior pathology and imaging. BRAF status is stillpending. She has healed well. She is a 10-year history of diabetes. She resides [facility]. Today we reviewed immunotherapy counseling for nivolumab. Although PET/CT was indeterminate for metastatic disease to liver, negative ultrasound warrants treatment of this for curative intent. Commontoxicities were reviewed to include infusion reactions, rash, fatigue, diarrhea, visual changes, abnormalities of thyroid/adrenal/pituitary function, pancreatitis, and other autoimmune toxicities. Other toxicities may include pneumonitis, neurologic, hepatic and renal toxicities. The patient signedinformed consent and will follow-up as directed. - Summary of Therapies Summary of Therapies: 1. Initial wide local excision at [facility] 09/05/[address] Hernando Mccartney 2. Right sentinel lymph node biopsy 11/28/2020 at [facility] by Dr. Diallo Berger 3. Delay of [...] cit 4.5 mg-lutein 2.5 mg-zeaxan chew tablet (bOombate) 1 tab PO DAILY 04/11/19 [History Confirmed [...] % (Auto) 64.5, Lymph % (Auto) 22.3, Saunders % (Auto) 9.5, Eos % (Auto) 2.6, Baso % (Auto) 1.1, Neut # (Auto) 4.8, Lymph # (Auto) 1.7, Saunders # (Auto) 0.7, Eos# (Auto) 0.2, Baso [...] Plan - TNM Staging Staging: Stage: pIIIC ([id number]) Melanoma 5 year survival: 69% (1) Melanoma Qualifiers: Melanoma location: upper extremity including shoulder Laterality: right Qualified Code(s): C43.61 -Malignant melanoma of right upper limb, including shoulder [...] [facility] surgical oncology group ordered metastatic staging with MRI of brain which revealed borderline enlargement of pituitary but was negative for metastatic disease.PET/CT showed indeterminate uptake in the hepatic parenchyma. Subsequent liver ultrasound was negative for metastatic disease. 02/23/2021: Patient started adjuvant immunotherapy with checkpoint inhibitor nivolumab 480 mg IV every 4 weeks for 12 cycles. At follow-up 03/23/2021 she hadno immunotherapy related toxicities noted bysymptoms, exam, or laboratories. 06/29/2021: No concerning symptoms [...] from prior 1.1. No prior history of renalinsufficiency and likely medical renal disease. She was encouraged to hydrate and follow-up with primary physician. Next follow-up with me for CT chest abdomen pelvis with surveillance labs CBC, CMP,and LDH in 3 months or sooner asneeded. Next follow-up with me in 3 months unless new issues arise. Patient is in agreement with this plan over this low complexity 15-minute visit to review symptoms,imaging noted above, and labs after completing immunotherapy. 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 She has no headaches or visual changes and we repeated her MRI of brain for surveillance at 6 months in June 2021--no interval change of prominent pituitary stalk. We may follow forsymptoms only. (3) Diabetes mellitus Qualifiers: Chronic kidney [...] for coordination of care (as documented) and itla-qd-sdik counseling of patient and/or family. Dictated By: Rose Ohara MD DD/ 1330 Signed By: <Electronically signed by MD Rose Ohara> 04/01/22 0283 [facility] Work Phone: 1(235) 472-142602-23-2022 Progress note Author Rose Ohara [facility] December 30, 2021 3:45pmNote Date/TimeFebruary 2021 10:04[facility] [place] [address] Hem/Onc Follow Up Note - OP Signed Patient: Tosha Mcneal MR#: [id number] : 1950 Acct:[id number] Age/Sex: 71 / F Type: REG RCR [...] related toxicities. Now following with dermatology at [facility] with no recurrence on skin [...] with negative liver ultrasound in January and herborderline enlargement of the pituitary noted on baseline [...] proceeded with wide local excision 09/05/[address] [facility]. Outside review at [facility] showedat least 2.1 cm Breslow depth melanoma with 2 cm negative margins. She was referred to Dr. Diallo Berger at [facility]. Right axillary sentinel lymph node biopsy performed [...] Her case was presented at [facility] cutaneous tumor board on 12/15/2020rior to her metastatic staging. Discussion of referral to medical oncology fordiscussion of immunotherapy. The patientis now returning for medical oncology follow-up after review of all prior pathology and imaging. BRAF status is stillpending. She has healed well. She is a 10-year history of diabetes. She resides [facility]. Today we reviewed immunotherapy counseling for nivolumab. Although PET/CT was indeterminate for metastatic disease to liver, negative ultrasound warrants treatment of this for curative intent. Commontoxicities were reviewed to include infusion reactions, rash, fatigue, diarrhea, visual changes, abnormalities of thyroid/adrenal/pituitary function, pancreatitis, and other autoimmune toxicities. Other toxicities may include pneumonitis, neurologic, hepatic and renal toxicities. The patient signedinformed consent and will follow-up as directed. - Summary of Therapies Summary of Therapies: 1. Initial wide local excision at [facility] 09/05/[address] Hernando Mccartney 2. Right sentinel lymph node biopsy 11/28/2020 at [facility] by Dr. Diallo Berger 3. Delay of [...] cit 4.5 mg-lutein 2.5 mg-zeaxan chew tablet (bOombate) 1 tab PO DAILY 04/11/19 [History Confirmed [...] of the mA and/or kV according to patientsize, or use of iterative reconstruction technique. COMPARISON: [...] Plan - TNM Staging Staging: Stage: pIIIC ([id number]) Melanoma 5 year survival: 69% (1) Melanoma Qualifiers: Melanoma location: upper extremity including shoulder Laterality: right Qualified Code(s): C43.61 -Malignant melanoma of right upper limb, including shoulder [...] [facility] surgical oncology group ordered metastatic staging with MRI of brain which revealed borderline enlargement of pituitary but was negative for metastatic disease.PET/CT showed indeterminate uptake in the hepatic parenchyma. Subsequent liver ultrasound was negative for metastatic disease. 02/23/2021: Patient started adjuvant immunotherapy with checkpoint inhibitor nivolumab 480 mg IV every 4 weeks for 12 cycles. At follow-up 03/23/2021 she hadno immunotherapy related toxicities noted bysymptoms, exam, or laboratories. 06/29/2021: No concerning symptoms [...] this low complexity 15-minute visit to review symptoms,imaging noted above, and labs on immunotherapy. 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 She has no headaches or visual changes and we repeated her MRI of brain for surveillance at 6 months in June 2021--no interval change of prominent pituitary stalk. We may follow forsymptoms only. (3) Diabetes mellitus Patient has a [...] for coordination of care (as documented) and fzck-rt-szou counseling of patient and/or family. Dictated By: Rose Ohara MD DD/ 1004 Signed By: <Electronically signed by MD Rose Ohara> 12/30/21 1543 [facility] Work Phone: 1([phone]) 951-210811-25-2021 Progress note Author Rose Ohara [facility] October 01, 2021 12:50pmNote Date/TimeNovember 2020 10:46[facility] [place] [id number] Hem/Onc Follow Up Note - OP Signed with Addenda Patient: Tosha Mcneal MR#: [id number] : 1950 Acct:[id number] Age/Sex: 70 / F Type: REG RCR Copies to: DO Bj Haddad MD Richard M Wiecek, MD~ ADDENDUM1 Correction 09/30/2021: Second line should note Hair Spinner is Dr. Bj Robison in [place]--last skin exam 09/29/2021. Addendum Dictated By: MD Rose Ohara Addendum Signed By: 10/01/211249 Addendum Cosigned By: DD/ TD/TT: 11/ Subjective Date/Time of Service: Date of Service: [...] related toxicities. Now following with dermatology at [facility] with no recurrence on skin exam. Surveillance ultrasound right axilla without recurrence. She will have routing f/u with [place] in [address] CAP and [...] with negative liver ultrasound in January and herborderline enlargement of the pituitary noted on baseline [...] proceeded with wide local excision 09/05/[address] [facility]. Outside review at [facility] showedat least 2.1 cm Breslow depth melanoma with 2 cm negative margins. She was referred to Dr. Diallo Berger at [facility]. Right axillary sentinel lymph node biopsy performed [...] Her case was presented at [facility] cutaneous tumor board on 1prior to her metastatic staging. Discussion of referral to medical oncology fordiscussion of immunotherapy. The patientis now returning for medical oncology follow-up after review of all prior pathology and imaging. BRAF status is stillpending. She has healed well. She is a 10-year history of diabetes. She resides [facility]. Today we reviewed immunotherapy counseling for nivolumab. Although PET/CT was indeterminate for metastatic disease to liver, negative ultrasound warrants treatment of this for curative intent. Commontoxicities were reviewed to include infusion reactions, rash, fatigue, diarrhea, visual changes, abnormalities of thyroid/adrenal/pituitary function, pancreatitis, and other autoimmune toxicities. Other toxicities may include pneumonitis, neurologic, hepatic and renal toxicities. The patient signedinformed consent and will follow-up as directed. - Summary of Therapies Summary of Therapies: 1. Initial wide local excision at [facility] 09/05/[address] Hernando Mccartney 2. Right sentinel lymph node biopsy 11/28/2020 at [facility] by Dr. Diallo Berger 3. Delay of [...] cit 4.5 mg-lutein 2.5 mg-zeaxan chew tablet (bOombate) 1 tab PO DAILY 04/11/19 [History Confirmed [...] Plan - TNM Staging Staging: Stage: pIIIC ([id number]) Melanoma 5 year survival: 69% (1) Melanoma Qualifiers: Melanoma location: upper extremity including shoulder Laterality: right Qualified Code(s): C43.61 -Malignant melanoma of right upper limb, including shoulder [...] [facility] surgical oncology group ordered metastatic staging with MRI of brain which revealed borderline enlargement of pituitary but was negative for metastatic disease.PET/CT showed indeterminate uptake in the hepatic parenchyma. Subsequent liver ultrasound was negative for metastatic disease. 02/23/2021: Patient started adjuvant immunotherapy with checkpoint inhibitor nivolumab 480 mg IV every 4 weeks for 12 cycles. At follow-up 03/23/2021 she hadno immunotherapy related toxicities noted bysymptoms, exam, or laboratories. 06/29/2021: No concerning symptoms [...] of prominant pituitary stalk. We may follow forsymptoms only. (3) Diabetes mellitus Patient has a [...] for coordination of care (as documented) and rdah-pj-wkqd counseling of patient and/or family. Dictated By: Rose Ohara MD DD/ 1046 Signed By: <Electronically signed by MD Rose Ohara> 09/30/21 2141 [facility] Work Phone: 1(955) 492-224508-23-2021 Progress note Author Rose Ohara [facility] June 29, 2021 6:03pmNote Date/TimeAugust 2020 10:48[facility] [place] [address] Hem/Onc Follow Up Note - OP Signed Patient: Tosha Mcneal MR#: [id number] : 1950 Acct:[id number] Age/Sex: 70 / F Type: REG RCR [...] with negative liver ultrasound in January and herborderline enlargement of the pituitary noted on baseline [...] proceeded with wide local excision 09/05/[address] [facility]. Outside review at [facility] showedat least 2.1 cm Breslow depth melanoma with 2 cm negative margins. She was referred to Dr. Diallo Berger at [facility]. Right axillary sentinel lymph node biopsy performed [...] Her case was presented at [facility] cutaneous tumor board on 12/15/2020rior to her metastatic staging. Discussion of referral to medical oncology fordiscussion of immunotherapy. The patientis now returning for medical oncology follow-up after review of all prior pathology and imaging. BRAF status is stillpending. She has healed well. She is a 10-year history of diabetes. She resides [facility]. Today we reviewed immunotherapy counseling for nivolumab. Although PET/CT was indeterminate for metastatic disease to liver, negative ultrasound warrants treatment of this for curative intent. Commontoxicities were reviewed to include infusion reactions, rash, fatigue, diarrhea, visual changes, abnormalities of thyroid/adrenal/pituitary function, pancreatitis, and other autoimmune toxicities. Other toxicities may include pneumonitis, neurologic, hepatic and renal toxicities. The patient signedinformed consent and will follow-up as directed. - Summary of Therapies Summary of Therapies: 1. Initial wide local excision at [facility] 09/05/[address] Hernando Mccartney 2. Right sentinel lymph node biopsy 11/28/2020 at [facility] by Dr. Diallo Berger 3. Delay of [...] cit 4.5 mg-lutein 2.5 mg-zeaxan chew tablet (bOombate) 1 tab PO DAILY 04/11/19 [History Confirmed [...] Fluorodeoxyglucose (FDG). The CT and PET data setswere fused. The blood glucose level at the [...] to suggest a recent ischemic event. No extra- axial collectionsor mass effect are seen. There is redemonstration of a convex contour to the superior margin of thepituitary. The pituitary gland measures approximately 8 mm in height. The pituitary stalk is also slightly thickened. These findings are unchanged. The imaged paranasal sinuses are clear. MR/MR head/brain wo/w con IMPRESSION: MINOR NONSPECIFIC WHITE MATTER CHANGES THAT MAY BE MICROVASCULAR DISEASE. STABLE APPEARANCE OF THE PITUITARY. NO ACUTE INTRACRANIAL FINDINGS. Impression dictated by: Jenni Snads M.D.06/19/2021 12:57 PM LIMITED RIGHT AXILLARY ULTRASOUND [...] Plan - TNM Staging Staging: Stage: pIIIC ([id number]) Melanoma 5 year survival: 69% (1) Melanoma Qualifiers: Melanoma location: upper extremity including shoulder Laterality: right Qualified Code(s): C43.61 -Malignant melanoma of right upper limb, including shoulder [...] [facility] surgical oncology group ordered metastatic staging with MRI of brain which revealed borderline enlargement of pituitary but was negative for metastatic disease.PET/CT showed indeterminate uptake in the hepatic parenchyma. Subsequent liver ultrasound was negative for metastatic disease. 02/23/2021: Patient started adjuvant immunotherapy with checkpoint inhibitor nivolumab 480 mg IV every 4 weeks for 12 cycles. At follow-up 03/23/2021 she hadno immunotherapy related toxicities noted bysymptoms, exam, or laboratories. 06/29/2021: No concerning symptoms [...] of prominant pituitary stalk. We may follow forsymptoms only. (3) Diabetes mellitus Patient has a [...] for coordination of care (as documented) and hnoa-ba-vzov counseling of patient and/or family. Dictated By: Rose Ohara MD DD/ 1048 Signed By: <Electronically signed by MD Rose Ohara> 06/29/21 1809 [facility] Work Phone: 1(109) 603-719805-17-2021 Progress note Author Rose Ohara [facility] March 23, 2021 9:29amNote Date/TimeMay 2020 9:09[facility] [place] [id number] Hem/Onc Follow Up Note - OP Signed Patient: Tosha Mcneal MR#: [id number] : 1950 Acct:[id number] Age/Sex: 70 / F Type: REG RCR [...] with negative liver ultrasound in January and herborderline enlargement of the pituitary noted on baseline [...] proceeded with wide local excision 09/05/[address] [facility]. Outside review at [facility] showedat least 2.1 cm Breslow depth melanoma with 2 cm negative margins. She was referred to Dr. Diallo Berger at [facility]. Right axillary sentinel lymph node biopsy performed [...] Her case was presented at [facility] cutaneous tumor board on 12/15/2020rior to her metastatic staging. Discussion of referral to medical oncology fordiscussion of immunotherapy. The patientis now returning for medical oncology follow-up after review of all prior pathology and imaging. BRAF status is stillpending. She has healed well. She is a 10-year history of diabetes. She resides [facility]. Today we reviewed immunotherapy counseling for nivolumab. Although PET/CT was indeterminate for metastatic disease to liver, negative ultrasound warrants treatment of this for curative intent. Commontoxicities were reviewed to include infusion reactions, rash, fatigue, diarrhea, visual changes, abnormalities of thyroid/adrenal/pituitary function, pancreatitis, and other autoimmune toxicities. Other toxicities may include pneumonitis, neurologic, hepatic and renal toxicities. The patient signedinformed consent and will follow-up as directed. - Summary of Therapies Summary of Therapies: 1. Initial wide local excision at [facility] 09/05/[address] Hernando Mccartney 2. Right sentinel lymph node biopsy 11/28/2020 at [facility] by Dr. Diallo Berger 3. Delay of [...] for environmental allergies and food allergies. [facility] - History Attestation statement: The following [...] Sodium 139, Potassium 3.5, Chloride 101, Carbon Fxnpcvu17.3, BUN 17, Creatinine 0.84, Est GFR ( [...] Neut % (Auto) 69.8, Lymph % (Auto) 16.9,Saunders % (Auto) 9.7, Eos % (Auto) 2.4, Baso % (Auto) 1.2, Neut # (Auto) 5.1, Lymph # (Auto) 1.2, Saunders# (Auto) 0.7, Eos # (Auto) 0.2, Baso # (Auto) 0.1, Nucleated RBC % (auto) 0.0 - Impressions No new imaging for review currently. I am ordering surveillance right axillary ultrasound and will contact results. In June 2021 she will have 6-month surveillance PET/CT and MRI brain and I will see her followingboth of these studies. Assessment and Plan - TNM Staging Staging: Stage: pIIIC ([id number]) Melanoma 5 year survival: 69% (1) Melanoma Qualifiers: Melanoma location: upper extremity including shoulder Laterality: right Qualified Code(s): C43.61 -Malignant melanoma of right upper limb, including shoulder [...] [facility] surgical oncology group ordered metastatic staging with MRI of brain which revealed borderline enlargement of pituitary but was negative for metastatic disease.PET/CT showed indeterminate uptake in the hepatic parenchyma. [...] for coordination of care (as documented) and wocs-fu-mgoq counseling of patient and/or family. Dictated By: Rose Ohara MD DD/ 7 Signed By: <Electronically signed by MD Rose Ohara> 03/23/21928 [facility] Work Phone: 1(787) 457-659004-05-2021 Progress note Author Rose Ohara [facility] February 09, 2021 1:28pmNote Date/TimeApr2020 8:07[facility] [place] [id number] Hem/Onc Follow Up Note - OP Signed Patient: Tosha Mcneal MR#: [id number] : 1950 Acct:[id number] Age/Sex: 70 / F Type: REG RCR [...] proceeded with wide local excision 09/05/[address] [facility]. Outside review at [facility] showedat least 2.1 cm Breslow depth melanoma with 2 cm negative margins. She was referred to Dr. Diallo Berger at [facility]. Right axillary sentinel lymph node biopsy performed [...] Her case was presented at [facility] cutaneous tumor board on 1prior to her metastatic staging. Discussion of referral to medical oncology fordiscussion of immunotherapy. The patientis now returning for medical oncology follow-up after review of all prior pathology and imaging. BRAF status is stillpending. She has healed well. She is a 10-year history of diabetes. She resides [facility]. Today we reviewed immunotherapy counseling for nivolumab. Although PET/CT was indeterminate for metastatic disease to liver, negative ultrasound warrants treatment of this for curative intent. Commontoxicities were reviewed to include infusion reactions, rash, fatigue, diarrhea, visual changes, abnormalities of thyroid/adrenal/pituitary function, pancreatitis, and other autoimmune toxicities. Other toxicities may include pneumonitis, neurologic, hepatic and renal toxicities. The patient signedinformed consent and will follow-up as directed. - Summary of Therapies Summary of Therapies: 1. Initial wide local excision at [facility] 09/05/[address] Hernando Mccartney 2. Right sentinel lymph node biopsy 11/28/2020 at [facility] by Dr. Diallo Berger 3. Delay of [...] Plan - TNM Staging Staging: Stage: pIIIC ([id number]) Melanoma 5 year survival: 69% (1) Melanoma Qualifiers: Melanoma location: upper extremity including shoulder Laterality: right Qualified Code(s): C43.61 -Malignant melanoma of right upper limb, including shoulder [...] [facility] surgical oncology group ordered metastatic staging with MRI of brain which was negative but PET/CT showed some indeterminate uptake in the hepatic parenchyma. Subsequent liver ultrasound wasnegative for metastatic disease. Today we counseled the patient regarding immunotherapy with checkpoint inhibitor nivolumab 480 mg IV every 4 weeks for 12cycles. We will continue surveillance of right axilla with ultrasound every 4 months and 6-month follow-up PET/CT, sooner if new concerning findings. Patientsigned [...] for coordination of care (as documented) and [id number] counseling of patient and/or family. Dictated By: Rose Ohara MD DD/ [id number] Signed By: <Electronically signed by MD Rose Ohara> 02/09/21 0924 [facility] Work Phone: [phone] Consult note Author Bang Nunez [facility] October 01, 2020 11:21amNote Date/TimeOctober 01, 2020 11:10a[facility] [place] [address] Hem/Onc Consult Note - OP Signed Patient: Tosha Mcneal MR#: [id number] : 1950 Acct:[id number] Age/Sex: 69 / F Type: REG RCR [...] diabetes. She resides in [facility]. [facility] - Medical History Medical History: Medical [...] 69 years old with a 10-year history ofdiabetes mellitus. Although I think the risk of lymph node metastasis is probably low in this situation, I still would recommend surgical oncology's recommendation with regard to sentinel lymph node biopsy and dissection given the possibility of metastatic disease. The patient does not appear to beobviously very happy to hear this but I [...] [facility] surgical oncology group for his opinion. I will see her back at a later date. - Time with Patient Coordination of Care & Counseling Time: Greater than 50% of time spent with patient was for coordination of care (as documented) and [id number] counseling of patient and/or family. Dictated By: Bang Nunez MD DD/ [id number] Signed By: <Electronically signed by MD Bang Nunez> 10/01/20 1121 [facility] Work Phone: Evaluation + Plan note No data available for this section [facility] evaluation note* Diagnosis Onset Date Resolution Status Diabetes mellitus chronicEncounter for antineoplastic immunotherapychronicEnlarged pituitary gland chronicMelanomachronic [facility] Work Phone: Evaluation note* Diagnosis Onset Date Resolution Status Enlarged pituitary gland acuteDiabetes mellituschronicEncounter for antineoplastic immunotherapychronic Melanomachronic [facility] Work Phone: Evaluation note* Diagnosis Onset Date Resolution Status Enlarged pituitary gland acuteDiabetes mellituschronicEncounter for antineoplastic immunotherapychronic MelanomachronicEnlarged pituitary glandacuteMalignant melanoma of right upper limb, including shoulderacuteDiabetes mellituschronic [facility] Work Phone: Evaluation note* Diagnosis Aftercare following left knee joint replacement surgery- Primary Acute pain of left knee Stiffness of left knee Primary osteoarthritis of left knee documented in this encounter [facility]* Diagnosis Aftercare following left knee joint replacement surgery- Primary Acute pain of left knee Stiffness of left knee Primary osteoarthritis of left knee documented in this encounter [facility]* Diagnosis Aftercare following left knee joint replacement surgery- Primary Acute pain of left knee Stiffness of left knee Primary osteoarthritis of left knee documented in this encounter [facility]* Diagnosis Medicare annual wellness visit, subsequent- Primary Screening for depression [facility] Diagnosis Acute gout due to renal impairment involving toe of right foot- Primary 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 ([facility]) documented [facility] this [facility]* Diagnosis 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 ([facility]) documented [facility]* Diagnosis Type 2 diabetes mellitus with stage 3a chronic kidney disease, with long-term current use of insulin ([facility])- Primary Gout, unspecified cause, unspecified chronicity, unspecified site Mixed hyperlipidemia Morbid obesity ([facility]) Morbid obesity 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 ([facility] documented in this encounter [facility]* Diagnosis Encounter for screening mammogram for malignant neoplasm of breast- Primary documented in this [facility]* Diagnosis 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 ([facility])- Primary Type 2 diabetes mellitus with stage 3a chronic kidney disease, with long-term current use of insulin ([facility]) Enlarged pituitary gland ([facility]) Morbid obesity ([facility]) Morbid obesity documented in this encounter [facility]* Diagnosis Lumbar paraspinal muscle spasm- Primary Other symptoms referable to back Lumbar back pain Lumbago Need for influenza vaccination Need for prophylactic vaccination and inoculation against influenza documented in this encounter [facility]* Diagnosis 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 ([facility]) documented in this encounter [facility]* Diagnosis Onset Date Resolution Status Admit Date Enlarged pituitary gland acuteFebruary 2024 12:47pmMalignant melanoma of right upper limb, including shoulderacuteFebruary 2024 12:47pmDiabetes mellituschronic December 26, 2024 12:47pmEnlarged pituitary glandacuteFebruary 2024 12:59pmDiabetes mellituschronicFebruary 2024 12:59pmEncounter for antineoplastic immunotherapychronicFebruary 2024 12:59pmMelanomachronic December 26, 2024 12:59pm [facility] Work Phone: Evaluation note* Diagnosis Acute [...] acidosis Acidosis Hypovolemia [facility] Diagnosis Acute cholecystitis- Primary Essential hypertension Unspecified essential hypertension Hypokalemia Hypopotassemia Type 2 diabetes mellitus with stage 3a chronic kidney disease, with long-term current use of insulin ([facility]) Morbid obesity ([facility]) Morbid obesity 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 ([facility]) documented in this encounter [facility]* Diagnosis Cholecystitis- Primary Cholecystitis, unspecified Cholecystitis Cholecystitis, unspecified Acute cholecystitis due to biliary calculus Acute cholecystitis due to biliary calculus [facility]* Diagnosis S/P laparoscopic cholecystectomy- Primary Other postprocedural status Morbid obesity ([facility]) Morbid obesity Hypersomnia Hypersomnia, unspecified Type 2 diabetes mellitus with stage 2 chronic kidney disease, with long-term current use of insulin([facility]) Physical deconditioning Muscular wasting and disuse atrophy, not elsewhere classified Screening for depression documented in this encounter [facility]* Diagnosis Hypersomnia- Primary Hypersomnia, unspecified Excessive daytime sleepiness documented in this encounter [facility]* Diagnosis S/P cholecystectomy- Primary Other acquired absence of organ Type 2 diabetes mellitus with stage 2 chronic kidney disease, with long-term current use of insulin([facility]) Localized swelling of left foot Irregular heart beat Unspecified cardiac dysrhythmia Other post infection and related fatigue syndromes Abnormal CBC Other abnormal blood chemistry Morbid obesity ([facility]) Morbid obesity Excessive daytime sleepiness documented in this encounter [facility]* Diagnosis Hypersomnia Hypersomnia, unspecified Excessive daytime sleepiness documented in this encounter [facility]* Diagnosis History of cholecystectomy- Primary Other acquired absence of organ Diarrhea, unspecified type Morbid obesity ([facility]) Morbid obesity Lumbar spondylosis Lumbosacral spondylosis without myelopathy documented in this encounter [facility] noteNo assessment information available [facility] Work Phone: Evaluation note* Diagnosis RONEN (obstructive sleep apnea)- Primary Obstructive sleep apnea (adult) (pediatric) Class 3 severe obesity due to excess calories with serious comorbidity and body mass index (BMI) of40.0 to 44.9 in adult ([facility]) Essential hypertension, benign Nocturia documented in this encounter [facility]* Diagnosis Degeneration of intervertebral disc of lumbar region with discogenic back pain- Primary [facility] Diagnosis 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 (CMS-HCC) [facility] Diagnosis 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 (CMS-HCC) documented [facility] [...] Care Everywhere. * Low Back Pain ED ([place]ian) documented in [facility] encounter[facility] SystemInstructionsNot on file documented in this encounterProMedica Health SystemInstructionsNot on file documented in this encounterProMedica Health SystemInstructionsNot on file documented in this encounterProMedica Health SystemInstructionsNot on file documented in this encounterProMedica Health SystemInstructionsNot on file documented in this encounterProMedica Health SystemInstructions* Attachments The following attachments cannot be sent through Care Everywhere. * High-fiber diet ([place]ijian) documented in this encounterProMedica Health SystemInstructionsNot on file documented in this encounterProMedica Health SystemInstructionsNot on file documented in this encounterProMedica Health SystemInstructionsNot on file documented in this encounterProMedica Health SystemProgress note Author Rose Ohara [facility] July 01, 2022 8:35pmNote Date/TimeAugust 2021 10:39[facility] at [address] [address] Hem/Onc Follow Up Note - OP Signed Patient: Tosha Mcneal MR#: [id number] : 1950 Acct:[id number] Age/Sex: 71 / F Type: REG RCR [...] related toxicities. Now following with dermatology at [facility] with no recurrence on skin exam. Surveillance ultrasound right axilla without recurrence. She will have routing f/u with [place] [address] CAP and [...] proceeded with wide local excision 09/05/[address] [facility]. Outside review at [facility] showedat least 2.1 cm Breslow depth melanoma with 2 cm negative margins. She was referred to Dr. Diallo Berger at [facility]. Right axillary sentinel lymph node biopsy performed [...] Her case was presented at [facility] cutaneous tumor board on 12/15/2020rior to her metastatic staging. Discussion of referral to medical oncology fordiscussion of immunotherapy. The patientis now returning for medical oncology follow-up after review of all prior pathology and imaging. BRAF status is stillpending. She has healed well. She is a 10-year history of diabetes. She resides [facility]. Today we reviewed immunotherapy counseling for nivolumab. Although PET/CT was indeterminate for metastatic disease to liver, negative ultrasound warrants treatment of this for curative intent. Commontoxicities were reviewed to include infusion reactions, rash, fatigue, diarrhea, visual changes, abnormalities of thyroid/adrenal/pituitary function, pancreatitis, and other autoimmune toxicities. Other toxicities may include pneumonitis, neurologic, hepatic and renal toxicities. The patient signedinformed consent and will follow-up as directed. - Summary of Therapies Summary of Therapies: 1. Initial wide local excision at [facility] 09/05/[address] Hernando Mccartney 2. Right sentinel lymph node biopsy 11/28/2020 at [facility] by Dr. iDallo Berger 3. Delay of immunotherapy due to [...] injector 0.75 mg subcut QWEEK DIABETES 04/11/19 [HistoryConfirmed 07/01/22] hydrochlorothiazide 25 mg tablet 25 mg [...] cit 4.5 mg-lutein 2.5 mg-zeaxan chew tablet ([facility]) 1 tab PO DAILY eye [...] Sodium 139, Potassium 4.9, Chloride 102, Carbon Jstpgsf51.6, BUN 21, Creatinine 0.87, Est GFR ( [...] % (Auto) 66.8, Lymph % (Auto) 18.8, Saunders % (Auto) 9.5, Eos % (Auto) 3.7, Baso % (Auto) 1.2, Neut # (Auto) 5.6, Lymph # (Auto) 1.6, Saunders # (Auto) 0.8, Eos #(Auto) 0.3, Baso [...] There is a normal appendix in the rightlower quadrant. Mesenteric Lymph Nodes: No enlarged mesenteric lymph nodes. Peritoneum: No ascites or free air, no fluid collection. Vessels: Atherosclerotic changes are noted in the abdominal aorta and its branches. Retroperitoneum: within normal limits. Abdominal Wall: within normal limits. Bones: Degenerative changes are noted in the thoracolumbar spine. Degenerative changes are noted inthe hips and sacroiliac joints. CT/CT chest w con IMPRESSION: No evidence of recurrent or metastatic disease. No acute cardiopulmonary pathology. No acute intra-abdominal pathology. Impression dictated by: Litzy Boggs M.D.06/29/2022 2:47 PM Assessment and Plan - TNM Staging Staging: Stage: pIIIC ([id number]) Melanoma 5 year survival: 69% (1) Melanoma Qualifiers: Melanoma location: upper extremity including shoulder Laterality: right Qualified Code(s): C43.61 -Malignant melanoma of right upper limb, including shoulder [...] [facility] surgical oncology group ordered metastatic staging with MRI of brain which revealed borderline enlargement of pituitary but was negative for metastatic disease.PET/CT showed indeterminate uptake in the hepatic parenchyma. Subsequent liver ultrasound was negative for metastatic disease. 02/23/2021: Patient started adjuvant immunotherapy with checkpoint inhibitor nivolumab 480 mg IV every 4 weeks for 12 cycles. At follow-up 03/23/2021 she hadno immunotherapy related toxicities noted bysymptoms, exam, or laboratories. 06/29/2021: No concerning symptoms [...] from prior 1.1. No prior history of renalinsufficiency and likely medical renal disease. She was encouraged to hydrate and follow-up with primary physician. Next follow-up with me for CT chest abdomen pelvis with surveillance labs CBC, CMP,and LDH in 3 months or sooner as needed. 07/01/2022: 3 month followup, now 5 months from completion of immunotherapy for Stage III melanoma. Restaging [address] CAP shows no metastases. Unremarkable exam and labs. Next follow-up with me in 3 months unless new issues arise. Patient is in agreement with this plan over this low complexity 20-minute visit to review symptoms,imaging noted above, and labs after completing immunotherapy. 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 She has no headaches or visual changes and we repeated her MRI of brain for surveillance at 6 months in June 2021--no interval change of prominent pituitary stalk. We may follow forsymptoms only. (3) Diabetes mellitus Qualifiers: Chronic kidney [...] for coordination of care (as documented) and nqeu-mz-[id number] counseling of patient and/or family. Dictated By: Rose Ohara MD DD/ [id number] Signed By: <Electronically signed by MD Rose Ohara> 07/01/222034 [facility] Work Phone: Progress note Author Rose Ohara [facility] September 23, 2022 10:21amNote Date/TimeNovember 2021 8:36[facility] [place] [address] Hem/Onc Follow Up Note - OP Signed Patient: Tosha Mcneal MR#: [id number] : 1950 Acct:[id number] Age/Sex: 71 / F Type: REG RCR Copies to: DO Mohan Haddad MD~ Subjective Date/Time of Service: Date of Service: 09/23/2022 Time of Service: 08:35 Chief Complaint: Patient is here today for a 3 month follow up to go over labs and extremity ultrasound. No new concerns HPI: 09/23/2022: Tosha is here for 3 month followup and review of exam and surveillance right axillaryultrasound. She was seen by dermatology 1 month [...] related toxicities. Now following with dermatology at [facility] with no recurrence on skin exam. Surveillance ultrasound right axilla without recurrence. She [place] have routing f/u with [place] [address] CAP and [...] with negative liver ultrasound in January and herborderline enlargement of the pituitary noted on baseline [...] proceeded with wide local excision 09/05/[address] [facility]. Outside review at [facility] showedat least 2.1 cm Breslow depth melanoma with 2 cm negative margins. She was referred to Dr. Diallo Berger at [facility]. Right axillary sentinel lymph node biopsy performed [...] Her case was presented at [facility] cutaneous tumor board on 12/15/2020rior to her metastatic staging. Discussion of referral to medical oncology fordiscussion of immunotherapy. The patientis now returning for medical oncology follow-up after review of all prior pathology and imaging. BRAF status is stillpending. She has healed well. She is a 10-year history of diabetes. She resides [facility]. Today we reviewed immunotherapy counseling for nivolumab. Although PET/CT was indeterminate for metastatic disease to liver, negative ultrasound warrants treatment of this for curative intent. Commontoxicities were reviewed to include infusion reactions, rash, fatigue, diarrhea, visual changes, abnormalities of thyroid/adrenal/pituitary function, pancreatitis, and other autoimmune toxicities. Other toxicities may include pneumonitis, neurologic, hepatic and renal toxicities. The patient signedinformed consent and will follow-up as directed. - Summary of Therapies Summary of Therapies: 1. Initial wide local excision at [facility] 09/05/[address] Hernando Mccartney 2. Right sentinel lymph node biopsy 11/28/2020 at [facility] by Dr. Diallo Berger 3. Delay of [...] injector 0.75 mg subcut QWEEK DIABETES 04/11/19 [HistoryConfirmed 09/23/22] hydrochlorothiazide 25 mg tablet 25 mg [...] 1.2, AST 17, ALT 16, Alkaline Phosphatase 45,Lactate Dehydrogenase 106, Total Protein 6.5, Albumin 3.7, Globulin 2.8, Albumin/Globulin Ratio 1.3 09/22/22 09:54: Corrected WBC 6.9, Uncorrected WBC Count 6.9, RBC 4.79, Hgb 13.9, Hct 43.2, MCV 90.2, MCH 29.0, MCHC 32.2, RDW 14.7, Plt Count 227, MPV 8.0,Neut % (Auto) 65.7, Lymph % (Auto) 21.6, Saunders % (Auto) 9.7, Eos % (Auto) 2.0, Baso % (Auto) 1.0, Neut # (Auto) 4.5, Lymph # (Auto) 1.5, Saunders # (Auto) 0.7, Eos# (Auto) 0.1, Baso [...] nodes on the right none of which appearto be pathologically enlarged or contain a pathologically thickened cortex. Close clinical observation is recommended. ASSESSMENT: BIRADS-2 Benign RECOMMENDATION: Close clinical observation of these lymph nodes is recommended with repeat imaging as symptoms warrant. Impression dictated by: Litzy Boggs M.D.09/21/2022 10:15 AM Assessment and Plan - TNM Staging Staging: Stage: pIIIC ([id number]) Melanoma 5 year survival: 69% (1) Melanoma Qualifiers: Melanoma location: upper extremity including shoulder Laterality: right Qualified Code(s): C43.61 -Malignant melanoma of right upper limb, including shoulder [...] [facility] surgical oncology group ordered metastatic staging with MRI of brain which revealed borderline enlargement of pituitary but was negative for metastatic disease.PET/CT showed indeterminate uptake in the hepatic parenchyma. Subsequent liver ultrasound was negative for metastatic disease. 02/23/2021: Patient started adjuvant immunotherapy with checkpoint inhibitor nivolumab 480 mg IV every 4 weeks for 12 cycles. At follow-up 03/23/2021 she hadno immunotherapy related toxicities noted bysymptoms, exam, or laboratories. 06/29/2021: No concerning symptoms [...] from prior 1.1. No prior history of renalinsufficiency and likely medical renal disease. She was encouraged to hydrate and follow-up with primary physician. Next follow-up with me for CT chest abdomen pelvis with surveillance labs CBC, CMP,and LDH in 3 months or sooner asneeded. [...] at primary site. Surveillance ultrasound right axilla withoutenlarging lymph nodes or pathologic thickening of cortex. We will continue surveillance with follow-up symptom review, exam, and 3-month CT chest abdomen pelvis to monitor for metastatic disease and defer next surveillance right axillary ultrasound for 6 months. She may return sooner if new issues arise. Patient is in agreement with this plan over this low complexity 20-minute visit to review symptoms,imaging noted above, and labs after completing immunotherapy. 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 She has no headaches or visual changes and we repeated her MRI of brain for surveillance at 6 months in June 2021--no interval change of prominent pituitary stalk. We may follow forsymptoms only. (3) Diabetes mellitus Qualifiers: Chronic kidney [...] 20 minutes - Low complexity, exam, lab review,and radiology review Coordination of Care & Counseling Time: Greater than 50% of time spent with patient was for coordination of care (as documented) and kohn-zy-igrr counseling of patient and/or family. Dictated By: Rose Ohara MD DD/ 0835 Signed By: <Electronically signed by MD Rose Ohara> 09/23/22 1021 [facility] Work Phone: Progress note Author Rose Ohara [facility] April 13, 2023 5:59pmNote Date/TimeJune 2022 9:30am[facility] at [address] [address] Hem/Onc Follow Up Note - OP Signed Patient: Tosha Mcneal MR#: [id number] : 1950 Acct:[id number] Age/Sex: 72 / F Type: REG RCR [...] leaving for a cruise to [place] this month.Continue 4 month followup with axillary ultrasound prior to visit, sooner prn. Low complexity 25 minute followup of exam and axillary US. 12/23/2022: Tosha is here for 3-month follow-up and review of 6-month surveillance CT chest abdomen pelvis for restaging stage III melanoma. She completed 1 year of adjuvant Nivolumab in January 2022.No interval changes in medical history and has her scheduled dermatology follow-up in January. No evid ence of recurrence on CT chest abdomen pelvis [...] and review of exam and surveillance right axillaryultrasound. She was seen by dermatology 1 month [...] related toxicities. Now following with dermatology at [facility] with no recurrence on skin exam. Surveillance ultrasound right axilla without recurrence. She will have routing f/u with [place] in [address] CAP and [...] her MRI of brain her baseline did sh ow borderline enlargement of the pituitary without mass [...] general surgery with Dr. Hernando Mccartney who proceededwith wide local excision 09/05/[address] [facility]. Outside review at [facility] showed at least 2.1 cm Breslow depth melanoma with 2 cm negative margins. She was referred to Dr. Jiang at [facility]. Right axillary sentinel lymph node biopsy performed [...] follow-up liver ultrasound on 01/09/2021 which was unremarkablewith no visible liver lesion. Her case was presented at [facility] cutaneous tumor board on 12/15/2020rior to her metastatic staging. Discussion of referral to medical oncology fordiscussion of immunotherapy. The patientis now returning for medical oncology follow-up after review of all prior pathology and imaging. BRAF status is stillpending. She has healed well. She is a 10-year history of diabetes. She resides [facility]. Today we reviewed immunotherapy counseling for nivolumab. Although PET/CT was indeterminate for metastatic disease to liver, negative ultrasound warrants treatment of this for curative intent. Commontoxicities were reviewed to include infusion reactions, rash, fatigue, diarrhea, visual changes, abnormalities of thyroid/adrenal/pituitary function, pancreatitis, and other autoimmune toxicities. Other toxicities may include pneumonitis, neurologic, hepatic and renal toxicities. The patient signedinformed consent and will follow-up as directed. - Summary of Therapies Summary of Therapies: 1. Initial wide local excision at [facility] 09/05/[address] Hernando Mccartney 2. Right sentinel lymph node biopsy 11/28/2020 at [facility] by Dr. Diallo Berger 3. Delay of [...] injector 0.75 mg subcut QWEEK DIABETES 04/11/19 [HistoryConfirmed 04/13/23] lisinopril 40 mg tablet 40 mg [...] lesion is well healed from wide local excisi on. Right axilla well-healed without palpable adenopathy. EXTREMITIES: [...] Sodium 140, Potassium 4.8, Chloride 102, Carbon Bwzvgjk03.2, Anion Gap 15.6 H, BUN 34 H, Creatinine 1.01, Est GFR (CKD-EPI) 58.780, Glucose 203 H, Calcium9.1, Total Bilirubin 0.9, AST 16, ALT 17, Alkaline Phosphatase 57, Lactate Dehydrogenase 120 L, Total Protein 6.7, Albumin 4.1, Globulin 2.6, Albumin/Globulin Ratio 1.6 04/12/23 09:13: Corrected WBC 6.9, Uncorrected WBC Count 6.9, RBC 4.62, Hgb 13.5, Hct 41.4, MCV 89.4, MCH 29.3, MCHC 32.7, RDW 14.7, Plt Count 197, MPV 8.3,Neut % (Auto) 62.3, Lymph % (Auto) 26.0, Saunders % (Auto) 8.6, Eos % (Auto) 2.2, Baso % (Auto) 0.9, Nucleat RBC Rel Count 0.1, Neut # (Auto) 4.3, Lymph # (Auto) 1.8, Saunders # (Auto) 0.6, Eos # (Auto) 0.2, [...] Plan - TNM Staging Staging: Stage: pIIIC ([id number]) Melanoma 5 year survival: 69% (1) Melanoma Qualifiers: Melanoma location: upper extremity including shoulder Laterality: right Qualified Code(s): C43.61 -Malignant melanoma of right upper limb, including shoulder [...] [facility] surgical oncology group ordered metastatic staging with MRI of brain which revealed borderline enlargement of pituitary but was negative for metastatic disease.PET/CT showed indeterminate uptake in the hepatic parenchyma. Subsequent liver ultrasound was negative for metastatic disease. 02/23/2021: Patient started adjuvant immunotherapy with checkpoint inhibitor nivolumab 480 mg IV every 4 weeks for 12 cycles. At follow-up 03/23/2021 she hadno immunotherapy related toxicities noted bysymptoms, exam, or laboratories. 06/29/2021: No concerning symptoms [...] from prior 1.1. No prior history of renalinsufficiency and likely medical renal disease. She was encouraged to hydrate and follow-up with primary physician. Next follow-up with me for CT chest abdomen pelvis with surveillance labs CBC, CMP,and LDH in 3 months or sooner asneeded. [...] at primary site. Surveillance ultrasound right axilla withoutenlarging lymph nodes or pathologic thickening of cortex. We will continue surveillance with follow-up symptom review, exam, and 3-month CT chest abdomen pelvis to monitor for metastatic disease and defer next surveillance right axillary ultrasound for 6 months. She may return sooner if new issues arise. 12/23/2022: 3-month follow-up with no new concerning symptoms. She is now 2-1/2 years from diagnosisand nearly 1 year from completion of Nivolumab [...] this low complexity 25-minute visit to review symptoms,imaging noted above, and labs after completing immunotherapyMar2021. 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 She has no headaches or visual changes and we repeated her MRI of brain for surveillance at 6 months in June 2021--no interval change of prominent pituitary stalk. We may follow forsymptoms only. (3) Diabetes mellitus Qualifiers: Chronic kidney [...] minutes - Low complexity, exam, lab review, radiologyreview right axillary US, and follow-up plan Coordination of Care & Counseling Time: Greater than 50% of time spent with patient was for coordination of care (as documented) and aqlz-cl-htlj counseling of patient and/or family. Dictated By: Rose Ohara MD DD/ 0927 Signed By: <Electronically signed by MD Rose Ohara> 04/13/23 4934 [facility] Work Phone: Progress note No data available for this section [facility] reason for referral (narrative)No reason for referral information availableRegency Hospital [facility] Work Phone: Reason for visit Narrative* Auth/CertSpecialty Diagnoses / ProceduresReferred By ContactReferred To Contact Diagnoses Acute cholecystitis Carlos Garcia MD [address] [facility] [address] [place] [address] Phone: tel: fax: [facility] [id number] [place] [phone] Referral IDStatusReasonStart DateExpiration DateVisits RequestedVisits [id number] [facility] CentermyLINGO [facility] CenterResaint [facility] for visit Narrative* Auth/CertSpecialtyDiagnoses / ProceduresReferred By ContactReferred To Contact Diagnoses Cholecystitis Procedures ME LAPAROSCOPY SURG CHOLECYSTECTOMY CHOLECYSTECTOMY LAPAROSCOPIC Rajni Cline MD [address] [facility] [address] [place] [address] Phone: tel: fax: [facility] [address] [place] [phone] Referral IDStatusReasonStart DateExpiration DateVisits RequestedVisits [id number] [facility] CenterLolaboxSampson Regional Medical Center for visit Narrative* Misc (Routine) - Closed SpecialtyDiagnoses / ProceduresReferred By ContactReferred To Contact Diagnoses Hypersomnia Excessive daytime sleepiness Procedures PS[facility] Diagnostic Wild Centeno, DO [address] [facility], [place] [address] Phone: tel: fax: Referral IDStatusReasonStart DateExpiration DateVisits RequestedVisits [id number]/23/20256/ [facility] Summary Purpose Family History No Family History Records Found Relationship Condition Age at Onset Recorded Date/T gianfranco Not Specified Cerebrovascular accident (CVA) Unknown fatherLeukemiaUnknown Relationship Condition Age at Onset Recorded Date/T gianfranco mother Cerebrovascular accident (CVA) Unknown fatherLeukemiaUnknown Advance Directives No Advanced Directives Records Found Advance Directive Response Recorded Date/ Time Advance Directives No April 11 7:55am Advance Directive Response Recorded Date/ Time Advance Directives No April 11 6:55am Date ActivatedDate InactivatedComments03/03/2025 11:34 AMDate ActivatedDate CvezozdijauIoafovzr35/27/2023 12:10 PM10/04/2023 4:13 PMNameRelationship Healthcare Agent RelationshipCommunicationHarry NewsomeSpousePrimary Decision Maker* Ty NewsomeChildSecondary Decision Maker* Date ActivatedDate InactivatedComments04/10/2025 10:05 PMDate ActivatedDate InactivatedComments03/03/2025 11:34 AM03/10/2025 3:10 PMDate ActivatedDate IsfecphznvcMiyeenjk63/27/2023 12:10 PM10/04/2023 4:13 PMNameRelationship Healthcare Agent RelationshipCommunicationHarry NewsomeSpousePrimary Decision Maker* Ty NewsomeChildSecondary Decision Maker* Procedure Findings Note PROCEDURE DETAILS Postoperat nitesh Diagnosis: right arm melanoma Surgeon: Diallo Berger Resident/Fellow/Other Java J[employer] Technical Lead: Ramiro Bhat Procedure: 1. RIGHT AXILLARY SENTINEL [...] E11.22, I12.9 , N18.31 Melanoma rt upper arm.Reason for VisitEnlarged pituitary gland Diabetes mellitus Encounter for antineoplastic immunotherapy Melanoma Chief Complaint I11.0, E11.22, I12.9 , N18.31 Melanoma rt upper arm.Reason for VisitEnlarged pituitary gland Diabetes mellitus Encounter for antineoplastic immunotherapy Melanoma [...] Z87.442 June 11, 2025 9:1 5am Right Kouts Ureteral Nephrosis July 16, 2025 10:11am Chief Complaint Admit Date N13.30 Z87.442 June 11, 2025 9:1 5am Right Kouts Ureteral Nephrosis July 16, 2025 10:11am Right Kouts Ureteral Nephrosis July 30, 2025 6:46am Additional Source Comments INFORMATION SOURCE (unrecogn ized section and content) DATE CREATED AUTHOR 10/24/2020 [employer] DATE CREATED AUTHOR AUTHOR'S ORGANIZ ATION 12/14/2020 [facility] DATE CREATED AUTHOR AUTHOR'S ORGANIZ ATION 10/07/2021 [facility] DATE CREATED AUTHOR AUTHOR'S ORGANIZ ATION 04/09/2022 [facility] DATE CREATED AUTHOR AUTHOR'S ORGANIZ ATION 03/07/2023 [facility] DATE CREATED AUTHOR AUTHOR'S ORGANIZ ATION 10/12/2023 [facility] DATE CREATED AUTHOR AUTHOR'S ORGANIZ ATION 11/10/2023 [facility] DATE CREATED AUTHOR AUTHOR'S ORGANIZ ATION 01/05/2024 [facility] DATE CREATED AUTHOR AUTHOR'S ORGANIZ ATION 07/18/2024 [facility] DATE CREATED AUTHOR AUTHOR'S ORGANIZ ATION 04/26/2025 [facility] DATE CREATED AUTHOR AUTHOR'S ORGANIZ ATION 05/10/2025 [facility] DATE CREATED AUTHOR AUTHOR'S ORGANIZ ATION 07/19/2025 [facility] DATE CREATED AUTHOR AUTHOR'S ORGANIZ ATION 08/13/2025 [facility] DATE CREATED AUTHOR AUTHOR'S ORGANIZ ATION 08/15/2025 [facility] DATE CREATED AUTHOR AUTHOR'S ORGANIZ ATION 09/03/2025 [facility] Care Teams (unrecognized sec tion and content) Team Status: Active Member Role Status Dates Wild Centeno DO Primary Care Provider Active Team Status: Inactive Member Role Status Dates Wild Centeno DO Primary Care Provider Active Start: December 13, 2023 End: December 13, 2023PARTH CamposP-CAttending ProviderActiveStart: December 13, 2023 End: December 13, 2023 Team Status: Active Member Role Status Dates Wild Centeno DO Primary Care Provider Active Start: December 13, 2023 ROSSY Bargereferring ProviderActiveStart: December 13, 2023 Landon Loera ProviderActiveStart: December 13, 2023 Team Status: Active Member Role Status Dates Wild Centeno DO Primary Care Provider Active Landon Ordaz ProviderActiveRichard M Wiecek , MDReferring ProviderActive Team Status: Active Member Role Status Dates Wild Megancarito DO Primary Care Provider Active Mohan Mccartney , MDReferring ProviderActiveAmy Lev , MDAttending Provider Active Team Status: Active Member Role Status Dates Wild MeganDO carito Primary Care Provider Active Start: December 15, 2023 Mohan Mccartney , MDReferring ProviderActiveStart: December 15, 2023 Rose Lev , MDAttending ProviderActiveStart: December 15, 2023 Team Status: Inactive Member Role Status Dates Wild MeganDO carito Primary Care Provider Active Start: December 15, 2023 End: December 15my Lev , MDAttending ProviderActiveStart: December 15, 2023 End: December 15, 2023Team MemberRelationshipSpecialtyStart DateEnd Date Unallocated, [place] Provider [address] [place] [address] PCP - GeneralFamily Medicine12/06/23Team MemberRelationshipSpecialtyStart DateEnd Date Unallocated, [place] Provider [address] [place] [address] PCP - GeneralFamily Medicine12/06/23Team MemberRelationshipSpecialtyStart DateEnd Date Unallocated, [place] Provider [address] [place] [address] PCP - GeneralFamily Medicine12/06/23Team MemberRelationshipSpecialtyStart DateEnd Date Unallocated, [place] Provider [address] [place] [address] PCP - GeneralFamily Medicine12/06/23Team MemberRelationshipSpecialtyStart DateEnd Date Unallocated, [place] Provider [address] [place] [address] PCP - GeneralFamily Medicine12/06/23Team MemberRelationshipSpecialtyStart DateEnd Date Unallocated, [place] Provider [address] [place] [address] PCP - GeneralFamily Medicine12/06/23Team MemberRelationshipSpecialtyStart DateEnd Date Unallocated, [place] MD Tiana [address] [place] [address] PCP - GeneralFamily Medicine12/06/23Team MemberRelationshipSpecialtyStart DateEnd Date Unallocated, Sincere Montiel MD [address] [place] [address] PCP - Generalmily Medicine12/06/23Team MemberRelationshipSpecialtyStart DateEnd Date Wild Centeno DO [address] [place] [address] PCP - [facility] Medicine11/30/17Team MemberRelationshipSpecialtyStart DateEnd Date Wild Centeno DO [address] [place] [address] PCP - Generalmily Medicine11/30/17Team MemberRelationshipSpecialtyStart DateEnd Date Wild Centeno DO [address] [place] [address] PCP - Generalmily Medicine11/30/17Team MemberRelationshipSpecialtyStart DateEnd Date Wild Centeno DO [address] [place] [address] PCP - Generalmily Medicine11/30/17Team MemberRelationshipSpecialtyStart DateEnd Date Wild Centeno DO [address] [place] [address] PCP - Generalmily Medicine11/30/17Team MemberRelationshipSpecialtyStart DateEnd Date Wild Centeno DO [address], [place] [address] [facility]/30/17Team MemberRelationshipSpecialtyStart DateEnd Date Wild Centeno DO [address], [place] [address] PCP - [facility] Medicine11/30/17Team MemberRelationshipSpecialtyStart DateEnd Date Wild Centeno DO [address], [place] [address] PCP - [facility] Medicine11/30/17Team MemberRelationshipSpecialtyStart DateEnd Date Wild Centeno DO [address], [place] [address] PCP - [facility] Medicine11/30/17Team MemberRelationshipSpecialtyStart DateEnd Date Wild Centeno DO [address], [place] [address] PCP - [facility] Medicine11/30/17Team MemberRelationshipSpecialtyStart DateEnd Date Wild Centeno DO [address], [place] [address] PCP - [facility]11/30/17 Team Status: Inactive Member Role Status Dates Wild Centeno DO Primary Care Provider Active Start: December 26, 2024 End: December 26tao Ohara , MDAttending ProviderActiveStart: December 26, 2024 End: December 26, 2024 Team Status: Active Member Role Status Dates Wild Centeno DO Primary Care Provider Active Start: December 26, 2024 Mohan Mccartney , MDReferring ProviderActiveStart: December 26, 2024 Rose Ohara , MDAttending ProviderActiveStart: December 26, 2024 Team Status: Inactive Member Role Status Dates Jessica Noble DO Attending Provider Active Start: March 03, 2025 End: March 03, 2025Team MemberRelationshipSpecialtyStart DateEnd Date Wild Centeno DO [address] [place] [address] [place] [address] PCP - Generalmily Fjlijnfx53/28/23Team MemberRelationshipSpecialtyStart Date End Date Wild Centeno DO [address], [place] [address] PCP - [facility] Medicine11/30/17Team MemberRelationshipSpecialtyStart DateEnd Date Wild Centeno DO [address], [place] [address] PCP - Generalmi Medicine11/30/17Team MemberRelationshipSpecialtyStart DateEnd Date Wild Centeno DO [address], [place] [address] PCP - [facility] Medicine11/30/17Team MemberRelationshipSpecialtyStart DateEnd Date Wild Centeno DO [address] [place] [place] [address] PCP - GeneralFamily Rwlybzeo15/28/23Team MemberRelationshipSpecialtyStart Date End Date MegancaritoDavianWild JaileneDO [address], [place] [address] PCP - Generalmily Medicine11/30/17Team MemberRelationshipSpecialtyStart DateEnd Date Wild Centeno DO [address], [place] [address] [facility]/30/17Team MemberRelationshipSpecialtyStart DateEnd Date Wild Centeno DO [address], [place] [address] [facility]11/30/17Team MemberRelationshipSpecialtyStart DateEnd Date Wild Centeno DO [address], [place] [address] [facility]11/30/17Team MemberRelationshipSpecialtyStart DateEnd Date Wild Centneo DO [address], [place] [address] [facility]11/30/17 Team Status: Inactive Member Role Status Dates Shavon Mustafa MD Attending Provider Active Start : June 11, 2025 End: June 11, 2025Cori Queen [facility] ProviderActiveStart: June 11, 2025 End: June 11, 2025Team MemberRelationshipSpecialtyStart DateEnd Date Wild Centeno DO [address] [place] [address] [address] [place] [address] PCP - [facility]11/30/17 Team Status: Inactive Member Role Status Dates Wild Megancarito Primary Care Provider Active Start: July 16, 2025 End: July 16, 2025Shavon Richmond Sarahgordon WALDOtiarraending ProviderActiveStart: July 16, 2025 End: July 16, 2025Team MemberRelationshipSpecialtyStart DateEnd Date Wild Centeno DO [address] [place] [address] [address] [place] [address] PCP - [facility]11/30/17 Team Status: Inactive Member Role Status Dates Wildlewis PendletondesiDO jorje Primary Care Provider Active Start: July 30, 2025 End: July 30, 2025Shavon Mustafa MDAttending ProviderActiveStart: July 30, 2025 End: July 30, 2025Team MemberRelationshipSpecialtyStart DateEnd Date Wild Centeno DO [address] [place] [address] [address] [place] [address] [facility] - [facility]11/30/17 Goals (unrecognized section and content) Goals may [...] for Visit (unrecogniz ed section and content) SpecialtyDiagnoses / ProceduresReferred By ContactReferred To ContactPhysical Therapy Diagnoses S/P total knee replacement using cement, left Procedures ME MANUAL THERAPY TQS 1/> REGIONS EACH 15 MINUTES PHYS/OCC THERAPY SS ME THERAPEUTIC PX 1/> AREAS EACH 15 MIN EXERCISES ME THER PX 1/> AREAS EACH 15 MIN NEUROMUSC REEDUCA Aly Higgins MD [address] [place] [address] Db Yu, PT [address] [address] Referral IDStatusReasonStart DateExpiration DateVisits RequestedVisits [id number] IDStatusReasonStart Date Expiration DateVisits RequestedVisits [id number] in big toeReasonCommentsMed RefillReason CommentsDiabetesReasonCommentssciatica right sideReasonOnset DateCommentsMed [id number] DateCommentsTransition Of Care03/11/2025Reason CommentsTCMDiabetesHyperlipidemiaHypertensionReasonOnset DateCommentsMed Refill 03/27/2025ReasonCommentsTCM- GALLBLADDER SURGERY.- [facility]ReasonOnset Date CommentsSleep Lab04/25/2025HSTReasonOnset DateCommentsSleep Lab04/30/2025PSG ReasonOnset DateCommentsTransition Of Care04/15/2025ReasonCommentsFollow-upFrom last visit. Feels like she has gout in the left foot.ReasonOnset DateComments Bttkqel4805/03/2025ReasonCommentsFollow-upFrom last visit with Lucy.Still is not feeling well since gallbladder surgery 04/10ReasonCommentsMed Change Request ReasonOnset DateCommentsSleep Lab06/18/2025Pap OrderReasonComments3 month f/u Ordered Prescriptions (unrec ognized section and content) PrescriptionSigDispense QuantityRefillsLast FilledStart DateEnd Date oxyCODONE-acetaminophen (PERCOCET) 5-325 MG per tablet Indications:Acute cholecystitisTake 1 tablet by mouth every 6 hours as needed for Pain for up to 3 days. Intended supply: 3 days. Take lowest dose possible to manage pain Max Daily Amount: 4 tablets 12 tablet /05/2025 amoxicillin-clavulanate (AUGMENTIN) 875-125 MG per tablet Take 1 tablet by mouth 2 times daily for 5 days 10 tablet /07/2025 pantoprazole (PROTONIX) 40 MG tablet Take 1 tablet by mouth 2 times daily (before meals) 30 tablet PrescriptionSigDispense QuantityRefillsLast FilledStart DateEnd Date oxyCODONE (ROXICODONE) 5 MG immediate release tablet Indications:Acute cholecystitis due to biliary calculusTake 1 tablet by mouth every 4 hours as needed for Pain for up to 5 days. Max Daily Amount: 30 mg 21 tablet /10/2025 methocarbamol (ROBAXIN) 500 MG tablet Take 1 tablet by mouth 3 times daily for 10 days 30 tablet gabapentin (NEURONTIN) 300 MG capsule Take 1 capsule by mouth 3 times daily for 10 days. 30 capsule Scheduled Active and Recently Administ ered Medications (unrecognized section and content) Medication Order/ aspirin chewable tablet 81 mg 81 mg, Oral, DAILY, First dose on Tue03/09/25 at 0900, Until Discontinued * 0820 (Given - Provider: Carmen Ramirez RN) * 0919 (Given - Provider: Carmen Ramirez RN) cefTRIAXone (ROCEPHIN) 1,000 mg in sterile water 10 mL IV syringe 1,000 mg, IntraVENous, EVERY 24 HOURS, First dose on Tue03/06/25 at 1800, Administer as slow IV Push over 5 mins Reconstitute 1 g vials with 9.6 mL of designated diluent to produce a 100 mg/mL solution. * 1816 (Given - Provider: Mindy Hinton RN) * 1704 (Given - Provider: Carmen Ramirez RN) * 1800 (Due) enoxaparin Sodium (LOVENOX) injection 30 mg 30 mg, SubCUTAneous, 2 TIMES DAILY, First dose on Tue03/06/25 at 1430, Until Discontinued, Indication of Use: Prophylaxis-DVT/PE, Administer by deep subCUTAneous injection with pt lying down. Alternate injection sites on abdominal wall. Do not rub site after injection. Check with provider prior to a ny invasive procedure. * 0926 (Given - Provider: Tanner Yates RN) * 2050 (Given - Provider: Leslie Tapia RN) * 0820 (Given - Provider: Carmen Ramirez RN) * 2100 (Given - Provider: Chacha Mcarthur RN) * 0921 (Given - Provider: Carmen Ramirez RN) * 2100 (Due) furosemide (LASIX) tablet 20 mg 20 mg, Oral, DAILY, First dose on Tue03/09/25 at 0900, Until Discontinued * 0820 (Given - Provider: Carmen Ramirez RN) * 0919 (Given - Provider: Carmen Ramirez RN) insulin glargine (LANTUS) injection vial 15 Units (CANCELED) 15 Units, SubCUTAneous, DAILY, First dose (after last modification) on Tue03/08/25 at 0945, Until Discontinued * 09 (Given - Provider: Tanner Yates RN) insulin glargine (LANTUS) injection vial 20 Units 20 Units, SubCUTAneous, DAILY, First dose (after last modification) on Tue03/09/25 at 0900, Until Discontinued * 0837 (Given - Provider: Carmen Ramirez RN) * 09 (Given - Provider: Carmen Ramirez RN) insulin [...] 60 minutes of last blood glucose check * 1714 (Given - Provider: Ny Shelby RN) * 0837 (Given - Provider: Carmen Ramirez RN) * 1207 (Given - Provider: Carmen Ramirez RN) * 1703 (Given - Provider: Carmen Sleigh, RN) * 2100 (Given - Provider: Chacha Mcarthur RN) * 0920 (Given - Provider: Carmen Ramirez, PERLA) * 1202 (Given - Provider: Carmen Ramirez RN) * 1700 (Due) * 2100 (Due) insulin lispro (HUMALOG,ADMELOG) injection vial 0-8 Units (CANCELED) 0-8 Units, SubCUTAneous, 4 TIMES DAILY BEFORE MEALS & NIGHTLY, First dose on 03/03/25 at 1700, Until Discontinued, Medium Dose Corrective Algorithm Glucose: Dose: 70-179 No Insulin 180-2492 Units 250-299 4 Units 300-349 6 Units Over 349 8 Units and notify physician Administer as soon aspossible within 60 minutes of last blood glucose check * 0619 (Given - Provider: Radha Dodd RN) * 1113 (Given - Provider: Tanner Yates RN) insulin lispro (HUMALOG,ADMELOG) injection vial 5 Units 5 Units, SubCUTAneous, 3 TIMES DAILY WITH MEALS, First dose on 03/09/25 at 0830, Until Discontinued, On hold since 03/10/2025 at 0810 until manually unheld * 0836 (Given - Provider: Carmen Ramirez RN) * 1208 (Given - Provider: Carmen Ramirez RN) * 1704 (Given - Provider: Carmen Ramirez RN) * 0810 (Held by provider - Provider: Piter Weems MD - Reason: Other) * 0838 (Not Given - Provider: Praveena Nelson RN - Reason: Other - Comment: order d.c) * 1200 (Automatically Held - Provider: Piter Weems MD) * 1700 (Automatically Held - Provider: Piter Weems MD) magnesium oxide (MAG-OX) tablet 400 mg (CANCELED) 400 mg, Oral, DAILY, First dose on 03/09/25 at 0900, Until Discontinued * 0820 (Given - Provider: Carmen Ramirez RN) magnesium sulfate 1000 mg in dextrose 5% 100 mL IVPB (COMPLETED) 1,000 mg, IntraVENous, at 100 mL/hr, Administer over 1 Hours, ONCE, On 03/10/25 at 0615, For 1 dose, Recommended infusion rate not to exceed 1,000 mg (milligrams) per hour. * 0611 (New Bag - Provider: Chacha Mcarthur RN) * 0711 (Stopped - Provider: Carmen Ramirez RN) * 0719 (Stopped - Provider: Praveena Nelson RN) magnesium sulfate 2000 mg in 50 mL IVPB premix 2,000 mg, IntraVENous, at 25 mL/hr, Administer over 2 Hours, ONCE, On Tue03/10/25 at 0845, For 1 dose * 0845 (Due) midodrine (PROAMATINE) tablet 5 mg 5 mg, Oral, 3 TIMES DAILY WITH MEALS, First dose on Tue03/04/25 at 1215, Until Discontinued, Do notgive after 1800 or within 4 hrs of bedtime. Withhold if systlic over 110 * 0909 (Not Given - Provider: Tannre Yates RN - Reason: Order parameters not met) * 1106 (Not Given - Provider: Tanner Yates RN - Reason: Order parameters not met) * 1652 (Not Given - Provider: Ny Shelby RN - Reason: Contraindicated - Comment: SBP 150) * 0824 (Not Given - Provider: Carmen Ramirez RN - Reason: Order parameters not met) * 1154 (Not Given - Provider: Carmen Ramirez RN - Reason: Order parameters not met) * 1659 (Not Given - Provider: Carmen Ramirez RN - Reason: Order parameters not met) * 0803 (Not Given - Provider: Carmen Ramirez RN - Reason: Order parameters not met) * 1157 (Not Given - Provider: Carmen Ramirez RN - Reason: Order parameters not met) * 1700 (Due) pantoprazole (PROTONIX) tablet 40 mg 40 mg, Oral, 2 TIMES DAILY BEFORE MEALS, First dose on Kirti 03/07/25 at 1600, Until Discontinued, Do not crush or break. * 0614 (Given - Provider: Radha Dodd RN) * 1714 (Given - Provider: Ny Shelby RN) * 0617 (Given - Provider: Leslie Tapia RN) * 1704 (Given - Provider: Carmen Ramirez RN) * 0929 (Given - Provider: Carmen Ramirez RN) * 1600 (Due) potassium chloride (KLOR-CON M) extended release tablet 40 mEq (COMPLETED) 40 mEq, Oral, ONCE, 1 dose, On 03/10/25 at 0845, Do not crush, chew, or suck on tablet. Tablet may also be broken in half and each half swallowed separately. * 0922 (Given - Provider: Carmen Ramirez, PERLA) potassium chloride (KLOR-CON M) extended release tablet 40 mEq (COMPLETED) 40 mEq, Oral, ONCE, 1 dose, On 03/10/25 at 1200, Do not crush, chew, or suck on tablet. Tablet may also be broken in half and each half swallowed separately. * 1202 (Given - Provider: Carmen Ramirez, PERLA) rosuvastatin (CRESTOR) tablet 10 mg 10 mg, Oral, NIGHTLY, First dose on Tue03/08/25 at 2100, Until Discontinued * 2050 (Given - Provider: Leslie Tapia, RN) * 2058 (Given - Provider: Chacha Mcarthur, RN) * 2099 (Due) sodium chloride flush 0.9 % injection 5-40 mL 5-40 mL, IntraVENous, EVERY 12 HOURS SCHEDULED (2 times per day), First dose on 03/03/25 at 2100, Until Discontinued, For Line Patency: Peripheral IV = 5 mL; Midline or Central Line = 10 mL/lumen.If following IV push medication, administer flush at same rate as the IV push. Flush volume is determined by type of infusion therapy being given. For non-viscous solutions use: Peripheral IV = 5 mL Midline or Central Line = 10 mL/lumen For viscous solutions (i.e. blood components, parenteral nutrition, contrast media, or after obtaining blood sample) use: Peripheral IV = 10 mL Midline or CentralLine = 20 mL/lumen * 0951 (Given - Provider: Tanner Yates, PERLA) * 2050 (Given - Provider: Leslie Tapia, RN) * 0824 (Given - Provider: Carmen Ramirez, RN) * 2099 (Given - Provider: Chacha Mcarthur, RN) * 0928 (Given - Provider: Carmen Ramirez, RN) * 2100 (Due) Medication Order03/08///02/2025 0.9 % sodium chloride infusion IntraVENous, at 5-250 mL/hr, PRN, if patient receiving piggyback infusions and maintenance fluids are not ordered, Starting on [place] 03/03/25 at 1148, For piggyback infusion, administer [...] Rectal, EVERY 6 HOURS PRN, Starting on [place] 03/03/25 at 1148, Until Discontinued, Pain Mild (1-3), allowed for higher pain score per patient request, Fever, For temp greater than 100.4 F (38 C), Administer if oral route cannot be used. acetaminophen (TYLENOL) tablet 650 mg(Linked Group 1) 650 mg, Oral, EVERY 6 HOURS PRN, Starting on [place] 03/03/25 at 1148, Until Discontinued, Pain Mild [...] boluses or administration of glucagon, Starting on [place] 03/03/25 at 1456, If blood glucose fails [...] patient NOT ALERT or NPO, Starting on [place] 03/03/25 at 1456, Repeat blood glucose in [...] Tue03/03/25 at 1456, Repeat blood glucose in 15minutes. If blood glucose remains LESS THAN 70 mg/dL, repeat treatment and recheck blood glucose in15 minutes x 2. If using glycemic management [...] at 100 mL/hr. Repeat blood glucose in 15minutes x 2 and notify provider. Reconstitute powder for injection by adding 1 mL of death clearance coordinator-supplied sterile diluent or sterile water for injection [...] alert and tolerating oral. Give 4 tablets (16g)Repeat blood glucose in 15 minutes. If blood [...] hour of each other unless specifically ordered. * 0415 (Given - Provider: Chacha Mcarthur RN) melatonin tablet 3 mg 3 mg, Oral, NIGHTLY PRN, Starting on Tue03/08/25 at 2102, Until Discontinued, Sleep * 210 (Given - Provider: Leslie Tapia, PERLA) ondansetron (ZOFRAN) injection 4 mg(Linked Group 3) [...] 17 g, Oral, DAILY PRN, Starting on Tue03/03/25 at 1148, Until Discontinued, Constipation, First line [...] further dilute if GI adverse effects occur. * 0950 (See Alternative - Provider: Tanner Yates, PERLA) * 0611 (See Alternative - Provider: Chacha Mcarthur, PERLA) * 0919 (See Alternative - Provider: Carmen Ramirez, PERLA) [...] use in patients with CrCl less than 30mL/min. Do not crush, chew, or suck on tablet. Tablet may also be broken in half and each half swallowed separately. * 0950 (Given - Provider: Tanner Yates RN) * 0611 (Given - Provider: Chacha Mcarthur, RN) * 0919 (Given - Provider: Carmen Ramirez, RN) potassium chloride 10 mEq/100 mL IVPB (Peripheral Line)(Linked Group 4) 10 mEq, IntraVENous, PRN, Starting on 03/04/25 [...] in patients with CrCl less than 30 mL /min. * 0950 (See Alternative - Provider: Tanner Yates RN) * 0611 (See Alternative - Provider: Chacha Mcarthur, PERLA) * 0919 (See Alternative - Provider: Carmen Ramirez, RN) sodium chloride flush 0.9 % injection [...] For viscous solutions (i.e. blood components, parenteral nutrition,contrast media, or after obtaining blood sample) use: Peripheral IV = 10 mL Midline or Central Line= 20 mL/lumen Order Group 1: acetaminophen (TYLENOL) tablet 650 [...] 03/03/25 at 1456, Repeat blood glucose in 15minutes. If blood glucose remains LESS THAN 70 mg/dL, repeat treatment and recheck blood glucose in15 minutes x 2. If using glycemic management [...] use in patients with CrCl less than 30mL/min. Do not crush, chew, or suck on [...] in patients with CrCl less than 30 mL /min. Medication Order//05/2025 acetaminophen (TYLENOL) tablet 1,000 mg 1,000 mg, Oral, EVERY 8 HOURS SCHEDULED (3 times per day), First dose on Tue04/10/25 at 2315, Until Discontinued, Maximum dose of acetaminophen is 4000 mg from all sources in 24 hours. * 0547 (Given - Provider: Musa Robertson RN) * 1355 (Given - Provider: Milady Doshi RN) * 2224 (Given - Provider: Musa Robertson RN) * 0619 (Given - Provider: Musa Robertson RN) * 1400 (Given - Provider: Valentine Parks) * 2139 (Given - Provider: Rochelle Mosquera, RN) * 0636 (Given - Provider: Rochelle Mosquera, RN) * 1319 (Given - Provider: Valentine Parks) * 2200 (Due) aspirin chewable tablet 81 mg 81 mg, Oral, DAILY, First dose on Kirti 04/11/25 at 0900, Until Discontinued * 0906 (Given - Provider: Kelly Worrell RN) * 0931 (Given - Provider: Valentine Parks) * 0832 (Given - Provider: Valentine Parks) carvedilol (COREG) tablet 25 mg 25 mg, Oral, 2 TIMES DAILY WITH MEALS, First dose on Kirti 04/11/25 at 0800, Until Discontinued, Hold for SBP < 100 and HR <60/min Administer with food to minimize the risk of orthostatic hypotension * 0911 (Given - Provider: Kelly Worrell RN) * 1835 (Given - Provider: Kelly Worrell RN) * 0931 (Given - Provider: Valentine Parks) * 1802 (Given - Provider: Valentine Parks) * 0831 (Given - Provider: Valentine Parks) * 1700 (Due) ceFAZolin (ANCEF) 2000 mg in sterile water 20 mL IV syringe (COMPLETED) 2,000 mg, IntraVENous, EVERY 8 HOURS, First dose on Kirti 04/11/25 at 0130, For 24 hours, Administer over 5 mins., Post-op * 0154 (Given - Provider: Musa Robertson RN) * 0918 (Given - Provider: Kelly Worrell RN) * 1835 (Given - Provider: Kelly Worrell RN) enoxaparin (LOVENOX) injection 40 mg 40 mg, SubCUTAneous, DAILY, First dose on Kirti 04/11/25 at 0900, Until Discontinued, Indication of Use: Prophylaxis-DVT/PE, Administer by deep subCUTAneous injection with pt lying down. Alternate injection sites on abdominal wall. Do not rub site after injection. Check with provider prior to any invasive procedure., Post-op * 0906 (Given - Provider: Kelly Worrell RN) * 0931 (Given - Provider: Valentine Parks) * 0831 (Given - Provider: Valentine Parks) furosemide (LASIX) tablet 20 mg 20 mg, Oral, DAILY, First dose (after last modification) on Tue04/13/25 at 0900, Until Discontinued * 1013 (Held by provider - Provider: Herrera Alvarenga DO - Reason: Other) * 0821 (Unheld by provider - Provider: Herrera Merlos DO) * 0832 (Given - Provider: Valentine Parks) furosemide (LASIX) tablet 40 mg (CANCELED) 40 mg, Oral, DAILY, First dose on Kirti 04/11/25 at 1315, Until Discontinued * 1355 (Given - Provider: Milady Doshi, PERLA) * 0931 (Given - Provider: Valentine Parks) gabapentin (NEURONTIN) capsule 300 mg 300 mg, Oral, 3 TIMES DAILY, First dose on Tue04/10/25 at 2315, Until Discontinued * 0910 (Given - Provider: Kelly Worrell RN) * 1355 (Given - Provider: Milady Doshi, PERLA) * 2224 (Given - Provider: Musa Robertson, PERLA) * 0931 (Given - Provider: Valentine Parks) * 1400 (Given - Provider: Valentine Parks) * 2139 (Given - Provider: Rochelle Mosquera, PERLA) * 0831 (Given - Provider: Valentine Parks) * 1320 (Given - Provider: Valentine Parks) * 2100 (Due) insulin lispro (HUMALOG,ADMELOG) injection vial 0-16 Units 0-16 Units, SubCUTAneous, 4 TIMES DAILY BEFORE MEALS & NIGHTLY, First dose on Tue04/10/25 at 2230, Until Discontinued, High Dose Corrective Algorithm Glucose: Dose: 70-179 No Insulin 180-249 4Units 250-299 8 Units 300-349 12 Units Over 349 16 Units and notify physician Administer as soon aspossible within 60 minutes of last blood glucose check, Post-op * 0800 (Given - Provider: Kelly Worrell RN) * 1115 (Not Given - Provider: Kelly Worrell RN - Reason: Order parameters not met) * 1838 (Not Given - Provider: Kelly Worrell RN - Reason: Other - Comment: not taken) * 2225 (Given - Provider: Musa Robertson RN) * 0931 (Given - Provider: Valentine Parks) * 1400 (Given - Provider: Valentine Parks) * 180 (Given - Provider: Valentine Parks) * 2012 (Given - Provider: Rochelle Mosquera RN) * 0832 (Given - Provider: Valentine Parks) * 1320 (Given - Provider: Valentine Parks) * 1700 (Due) * 2100 (Due) methocarbamol (ROBAXIN) tablet 500 mg 500 mg, Oral, 3 TIMES DAILY, First dose (after last modification) on Tue04/13/25 at 0900, Until Discontinued * 0831 (Given - Provider: Valentine Parks) * 1320 (Given - Provider: Valentine Parks) * 2100 (Due) methocarbamol (ROBAXIN) tablet 750 mg (CANCELED) 750 mg, Oral, 4 TIMES DAILY, First dose on Tue04/10/25 at 2315, Until Discontinued * 0906 (Given - Provider: Kelly Worrell RN) * 1355 (Given - Provider: Milady Doshi RN) * 1835 (Given - Provider: Kelly Worrell RN) * 2223 (Given - Provider: Musa Robertson RN - Comment: previous dose given late) * 0931 (Given - Provider: Valentine Parks) * 1400 (Given - Provider: Valentine Parks) * 180 (Given - Provider: Valentine Parks) * 1956 (Not Given - Provider: Rochelle Mosquera RN - Reason: Patient/family refused) pantoprazole (PROTONIX) tablet 40 mg 40 mg, Oral, DAILY BEFORE BREAKFAST, First dose on Tue04/11/25 at 0700, Until Discontinued, Do not crush or break., Post-op * 0547 (Given - Provider: Musa Robertson RN) * 0619 (Given - Provider: Musa Robertson, PERLA) * 0635 (Given - Provider: Rochelle Mosquera, PERLA) rosuvastatin (CRESTOR) tablet 10 mg 10 mg, Oral, NIGHTLY, First dose on Tue04/11/25 at 2100, Until Discontinued * 193 (Given - Provider: Musa Robertson RN) * 2138 (Given - Provider: Rochelle Mosquera, RN) * 2099 (Due) sodium chloride flush 0.9 % injection 5-40 mL 5-40 mL, IntraVENous, EVERY 12 HOURS SCHEDULED (2 times per day), First dose on Tue04/10/25 at 2230,Until Discontinued, For Line Patency: Peripheral IV = [...] or Central Line = 20 mL/lumen, Post-op * 0909 (Not Given - Provider: Kelly Worrell RN - Reason: IV Fluid Infusing) * 1935 (Given - Provider: Musa Robertson RN) * 0955 (Not Given - Provider: Valentine Parks - Reason: IV Fluid Infusing) * 2002 (Given - Provider: Rochelle Mosquera, PERLA) * 0842 (Not Given - Provider: Valentine Parks - Reason: IV Fluid Infusing) * 2099 (Due) Medication Order// lactated ringers infusion (CANCELED) IntraVENous, at 75 mL/hr, CONTINUOUS, Starting on Tue04/10/25 at 2230, Post-op * 0144 (Restarted - Provider: Musa Robertson RN) * 0453 (Rate/Dose Verify - Provider: Musa Robertson RN) * 0614 (New Bag - Provider: Musa Robertson RN) * 1311 (Stopped - Provider: Musa Robertson RN) Medication Order// 0.9 % sodium chloride infusion IntraVENous, at [...] glucagon, Starting on Tue04/10/25 at 2205, If bloodglucose fails to stabilize after 2 dextrose 10% [...] dose as instructed per system. If blood glucoseremains LESS THAN 70 mg/dL after 2 intravenous boluses start dextrose 10% at 100 mL/hour and notifyprovider., Post-op glucagon injection 1 mg 1 mg, SubCUTAneous, PRN, Starting on Tue04/10/25 at 2205, Until Discontinued, Low blood sugar, Bloodglucose LESS THAN 70 mg/dL and patient NOT ALERT or NPO and does not have IV access., After administration, attempt intravenous access and start dextrose 10% at 100 mL/hr. Repeat blood glucose in 15 minutes x 2 and notify provider. Reconstitute powder for injection by adding 1 mL of death clearance coordinator-supplied sterile diluent or sterile water for injection to a vial containing 1 mg of the drug, to provide solutions containing 1 mg/mL. Shake vial gently to dissolve., Post-op glucose chewable tablet 16 g 16 g (4 tablet), Oral, PRN, Starting on Tue04/10/25 at 2205, Until Discontinued, Low blood sugar, Ifblood glucose is LESS THAN 70 mg/dL and patient is alert and tolerating oral. Give 4 tablets (16g) Repeat blood glucose in 15 minutes. If blood glucose is LESS THAN 70 mg/dL, repeat treatment and recheck blood glucose in 15 minutes x 2. If blood glucose remains LESS THAN 70 mg/dL, notify provider.,Post-op hydrALAZINE (APRESOLINE) injection 10 mg 10 mg, [...] at 0445, Until Discontinued, Pain Severe (7-10) * 0547 (See Alternative - Provider: Musa Robertson, RN) * 0956 (Given - Provider: Kelly Worrell, PERLA) * 193 (Given - Provider: Musa Robertson, RN) * 0619 (Given - Provider: Musa Robertson, RN) oxyCODONE (ROXICODONE) immediate release tablet 5 mg(Linked Group 3) 5 mg, Oral, EVERY 4 HOURS PRN, Starting on Tue04/11/25 at 0445, Until Discontinued, Pain Moderate (4-6), allowed for higher pain score per patient request * 0547 (Given - Provider: Musa Robertson RN) * 0956 (See Alternative - Provider: Kelly Worrell RN) * 1935 (See Alternative - Provider: Musa Robertson RN) * 0619 (See Alternative - Provider: Musa Robertson, PERLA) sodium chloride flush 0.9 % injection 5-40 mL 5-40 mL, IntraVENous, PRN, Starting on Tue04/10/25 at 2205, Until Discontinued, Line Care, After every IV line use, For Line Patency: Peripheral IV = 5 mL; Midline or Central Line = 10 mL/lumen. If following IV push medication, administer flush at same rate as the IV push. Flush volume is determinedby type of infusion therapy being given. For non-viscous solutions use: Peripheral IV = 5 mL Midline or Central Line = 10 mL/lumen For viscous solutions (i.e. blood components, parenteral nutrition, contrast media, or after obtaining blood sample) use: Peripheral IV = 10 mL Midline or Central Line = 20 mL/lumen, Post-op Order Group 1: dextrose bolus 10% 125 [...] dose as instructed per system. If blood glucoseremains LESS THAN 70 mg/dL after 2 intravenous boluses start dextrose 10% at 100 mL/hour and notifyprovider., Post-op Group 2: ondansetron (ZOFRAN-ODT) disintegrating tablet 4 mgJump to med 4 mg, Oral, EVERY 8 HOURS PRN, Starting on Tue04/10/25 at 2205, Until Discontinued, Nausea, Vomiting, Post-op Or ondansetron (ZOFRAN) injection 4 mgJump to med 4 mg, IntraVENous, EVERY 6 HOURS PRN, Starting on Tue04/10/25 at 2205, Until Discontinued, Nausea, Vomiting, Administer if oral route cannot be used., Post-op Group 3: oxyCODONE (ROXICODONE) immediate release tablet [...] BE BASED ON THE PRIMARY CLINICAL RECORDS. [facility]. provides no warranty or guarantee of the accuracy or completeness of information in this document.
[2025-09-27 11:15] LABS: Anion Gap 12.5; Blood Urea Nitrogen 13.0 mg/dL (7.0-18.0); Calcium 8.9 mg/dL (8.5-10.1); Carbon Dioxide 30.2 mmol/L (21.0-32.0); Chloride 102 mmol/L (98-107); Estimated GFR (African America >60 (>=60 mL/min/1.73m^2); Estimated GFR (Non-African Ame >60 (>=60 mL/min/1.73m^2); Glucose 236 mg/dL (74-106); Potassium 3.7 mmol/L (3.5-5.1); Sodium 141 mmol/L (136-145)
[2025-09-27 13:08] LABS: Hematocrit 41.6 % (36.0-48.0); Hemoglobin 12.8 g/dL (12.0-16.0); Immature Granulocytes Abs Auto 0.03 10^3/uL (0.00-0.03); Immature Granulocytes Pct Auto 0.3 % (0.0-0.5); Lymphocytes Absolute Auto 1.9 10^3/uL (1.2-3.8); Mean Corpuscular HGB Conc 30.8 g/dL (29.9-35.2); Mean Corpuscular Hemoglobin 27.8 pg (26.7-34.0); Mean Corpuscular Volume 90.4 fL (81.0-99.0); Platelet Count 225 10^3/uL (150-450); Red Blood Count 4.60 10^6/uL (4.20-5.40); White Blood Count 9.1 10^3/uL (4.0-11.0)
== END 2025-09-27 10:50 | disposition home or self-care (01) ==
LOC: LAB 10:51
PROVIDERS: PCP Family Medicine; Visit Provider Nurse Practitioner Family
DX: R94.39 Abnormal result of other cardiovascular function study (principal); R06.09 Other forms of dyspnea
CPT/HCPCS: 36415; 80048; 85025

== ENCOUNTER 2025-10-25 10:07 | Outpatient (OUT) | payer MEDICARE, OTHER, SELFPAY ==
--- OUTSIDE RECORDS SUMMARY | 2025-10-16 08:30 | XMS_ITS | Encounter Summary ---
Author Organization [facility] [employer] [facility] tem Address [id number] [address] [place] [address] Care Team Providers Care Launderer Hand Name Role Phone Wild Stone DO Primary Care Provider [phone] Reason for Visit * ReasonCommentsDiabetesNeeds MAW Encounter Details DateTypeDepartmentCare Team (Latest Contact Info)Ujjtomzjzuk65/10/2025 8:30 AM ESTOffice Visit [facility] Internal Medicine - Family Medicine [address] [place] [address] Wild Stone DO [address], [facility] [place] [address] 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 ([facility]) (Primary Dx); Chronic gout of ankle, unspecified cause, unspecified laterality; Class 3 severe obesity due to excess calories with serious comorbidity and body mass index (BMI) of40.0 to 44.9 in adult ([facility]); Need for immunization against influenza Social History Tobacco UseTypesPacks/DayYears UsedDateSmoking Tobacco: NeverSmokeless Tobacco: NeverAlcohol UseStandard Drinks/WeekCommentsNot Currently0 (1 standard drink = 0.6 oz pure alcohol)Social Connection and Isolation PanelAnswerDate RecordedIn a typical week, how many times do you talk on the phone with family, friends, or neighbors?More than three times a week03/10/2023How often do you get together with friends or relatives?Once a week03/10/2023How often do you attend mosque or sabianist services?Never03/10/2023o you belong to any clubs or organizations such as mosque groups, unions, fraternal or athletic groups, or school groups? Yes03/10/2023How often do you attend meetings of the clubs or organizations you belong to?Never03/10/2023re you , , , , never , or living with a partner?Nzfxnxz4403/10/2023Overall Financial Resource Strain (CARDIA)AnswerDate RecordedHow hard is it for you to pay for the very basics like food, housing, medical care, and heating?Not hard at all03/19/2024 PHQ-2AnswerDate RecordedTotal Rpgcm87012/17/2024[facility] [place] [facility] Occupational Health - Occupational Stress QuestionnaireAnswerDate [...] you from medical appointments or from getting medications?No 03/19/2024In the past 12 months, has lack of transportation kept you from meetings, work, or from getting things needed for daily living?No03/19/2024 AUDIT-CAnswerDate RecordedQ1: How often do you have a drink containing alcohol? Never10/09/2025Q2: How many drinks containing alcohol do you have on a typical day when you are drinking?Patient does not drink10/09/2025Q3: How often do you have six or more drinks on one occasion?Never10/09/2025Housing InstabilityAnswer Date RecordedAre you worried or concerned that in the next two months you may not have stable housing that you own, rent or stay in as a part of a household? No03/19/2024hildcareAnswerDate RecordedDo problems getting summer child caregiver make it difficult for you to work or study?No03/10/2023EmploymentAnswerDate RecordedDo you need help finding a local career center and/or a training program?No 03/10/2023Hunger ScreeningAnswerDate RecordedWithin the past 12 months we worried whether our food would run out before we got money to buy more.Never True10/16/2025Within the past 12 months the food we bought just didn't last and we didn't have money to get more.Never True10/16/2025Purpose - LifeAnswerDate RecordedPurpose and direction in zxwnGuzhhbg14/11/2021CommentsNoSex and Gender InformationValueDate RecordedSex Assigned at BirthNot on fileLegal Sex Blfhwr9206/12/2015 11:42 AM EDTGender IdentityNot on fileSexual OrientationNot on filedocumented as of this encounter Last Filed Vital Signs Vital SignReadingTime TakenCommentsBlood Jcedusgo680/8810/16/2025 8:19 AM EST Plwbu442710/16/2025 8:19 AM TQPQmdkjxnepdq46.3 ??C (97.3 ??F)10/16/2025 8:19 AM ESTRespiratory Iyml082312/17/2024 8:19 AM ESTOxygen Dvoojrdpgr14%10/16/2025 8:19 AM ESTInhaled Oxygen Concentration--Dgzskm81.4 kg (210 lb 6.4 oz)10/16/2025 8:19 AM OTOMnzqoc707.4 cm (5')10/16/2025 8:19 AM ESTBody Mass Index41.0910/16/2025 8:19 AM ESTdocumented in this encounter Functional Status * BPAnswerDate of CnamlpcgpvElvpjh379/8810/16/2025 8:19 AM Tressa Nava CMA * TempAnswerDate of FrianmahdlIwdksj80.312 8:19 AM Tressa Nava CMA * Temp srcAnswerDate of IunkomwjpmWquvjsDcrfjxyw96/10/2025 8:19 AM Tressa Nava CMA * PulseAnswerDate of JeqmelqwjgQozvhp0948 8:19 AM Tressa Nava CMA * RespAnswerDate of QkwmzrqlqyEprvhg3628 8:19 AM Tressa Nava CMA * DmA7KutiljEhic of GbpuyreeqcQyhfag5995 8:19 AM Tressa Nava CMA * HeightAnswerDate of ClbdtykeqmMrlevr4356 8:19 AM Tressa Nava CMA * WeightAnswerDate of NmfeecwmsaXafour7516.412 8:19 AM Tressa Nava CMA * Food InsecurityQuestionAnswerDate of AssessmentAuthorWithin the past 12 months the food we bought just didn't last and we didn't have money to get more.Never True10/16/2025 8:20 AM Tressa Nava CMAWithin the past 12 months we worried whether our food would run out before we got money to buy more.Never True10/16/2025 8:20 AM Tressa Nava CMA * FALL RISK ASSESSMENT COMPLETEDQuestionAnswerDate of AssessmentAuthorFall Risk Assessment Completed?Y112/17/2024 8:20 AM Tressa Nava CMA * BEE (kcal)AnswerDate of WmwkwtevqqVkhxtn390386/10/2025 8:19 AM Tressa Nava CMA * Screening questionsQuestionAnswerDate of AssessmentAuthorAre you worried about falling?N112/17/2024 8:20 AM Tressa Nava CMADo you feel unsteady when standing or walking?N112/17/2024 8:20 AM Tressa Nava CMAHave you fallen in the past year?N112/17/2024 8:20 AM Tressa Nava CMA * Risk StratificationAnswerDate of AssessmentAuthorLow Risk10/16/2025 8:20 AM Tressa Nava CMA * BSA (Calculated - sq m)AnswerDate of AssessmentAuthor2.0112/08/2025 8:19 AM Tressa Nava CMA * BMI (Calculated)AnswerDate of UqvilmreovHqfesu36.112 8:19 AM Tressa Nava CMA * Weight in (lb) to have BMI = 25AnswerDate of AlxvvqrdqwQuwgjw700.7112/17/2024 8:19 AM Tressa Nava CMA * Vitals TimerQuestionAnswerDate of AssessmentAuthorRestely Vitals TimerYes 10/16/2025 8:19 AM Tressa Nava CMA * Over the last 2 weeks, how often have you been bothered by any of the following problems?QuestionAnswerDate of AssessmentAuthorIf you checked off any problems, how difficult have these problems made it for you to do your work,take care of things at home, or get along with other people?Not difficult at all10/16/2025 8:20 AM Tressa Nava CMALittle interest or pleasure in doing yxuzzt235 8:20 AM Tressa Nava CMAFeeling down, depressed, or foebbhif891/10/2025 8:20 AM Tressa Nava CMATotal Cxcij99612/17/2024 8:20 AM Tressa Nava CMA * BPAnswerDate of DdfooasgccQcsroc492/8810/16/2025 8:19 AM Tressa Nava CMA * TempAnswerDate of XzgazhhrpdOcpvnz52.312 8:19 AM Tressa Nava CMA * Temp srcAnswerDate of JwkhzkczzzLgyqkiHourcwjj83/10/2025 8:19 AM Tressa Nava CMA * PulseAnswerDate of BslwiykticKqpvqt2700/10/2025 8:19 AM Tressa Nava CMA * RespAnswerDate of WukqqfgcmeWhcazg8159/10/2025 8:19 AM Tressa Nava CMA * QhI6FihkjiKqio of IvennkmwpaKauirh6249/10/2025 8:19 AM Tressa Nava CMA * HeightAnswerDate of AyavprfazkJdnffh5075 8:19 AM Tressa Nava CMA * WeightAnswerDate of OqghqbnnxjCcwpcu7752.412 8:19 AM Tressa Nava CMA * BEE (kcal)AnswerDate of CewhtznyjfLmtceb244378 8:19 AM Tressa Nava CMA * BSA (Calculated - sq m)AnswerDate of AssessmentAuthor2.0112 8:19 AM Tressa Nava CMA * BMI (Calculated)AnswerDate of FeijooiyvfUiraix81.112 8:19 AM Tressa Nava CMA * Weight in (lb) to have BMI = 25AnswerDate of AseuaqvbsoMlcyhr302.712 8:19 AM Tressa Nava CMA documented as of this encounter Mental Status * BPAnswerEntry MqwtTjkhzj836/8810/16/2025 8:19 AM Tressa Nava CMA * TempAnswerEntry YrycPqrgut85.312 8:19 AM Tressa Nava CMA * Temp srcAnswerEntry RhxyPoyumxPmmsbseo37/10/2025 8:19 AM Tressa Nava CMA * PulseAnswerEntry WflpEpbawx0616 8:19 AM Tressa Nava CMA * RespAnswerEntry SpcyHzziat9766 8:19 AM Tressa Nava CMA * TyZ1WmolrqXoosz IsenGtkejv0746/10/2025 8:19 AM Tressa Nava CMA documented in this encounter Progress Notes * Wild Stone, DO - 10/16/2025 8:30 AM EST Subjective Patient ID: Tosha Macias is a 74 y.o. female. Alpa presents today for a diabetic recheck. She is taking her insulin. She has no side effects. She has a Dexcom. We did download her Dexcom and it showed that her over the last 2 weeks her average a1c is 8.1%. She has not had any hypoglycemic episodes. She did have another flare-up of her gout. She has had it every 3 months or so. She is taking allopurinol. She would like a refill of the colchicine. It works well when she takes it. Usually resolvesin 3 days. She does not have any ankle pain right now. She would like to have the medication on hand so she does not have to go to the urgent care when she has a flare-up. The following portions of the patient's history were reviewed and updated as appropriate: allergies, current medications, past family history, past medical history, past social history, past surgicalhistory, problem list, and medication reconciliation was completed including current medication andpost discharge medication. Review of Systems Objective Physical Exam Constitutional: General: She is not in acute distress. Appearance: She is not ill-appearing. HENT: Head: Normocephalic. Neck: Vascular: No carotid bruit. Cardiovascular: Rate and Rhythm: Normal rate and regular rhythm. Heart sounds: Normal heart sounds. No murmur heard. Pulmonary: Effort: Pulmonary effort is normal. No respiratory distress. Breath sounds: Normal breath sounds. No wheezing, rhonchi or rales. Neurological: General: No focal deficit present. Mental Status: She is alert and oriented to person, place, and time. Assessment/Plan Tosha was seen today for diabetes. Diagnoses and all orders for this visit: 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 ([facility] - POCT Hemoglobin A1c - Microalbumin - Albumin: Creatinine Urine Ratio; Future - Microalbumin - Albumin: Creatinine Urine Ratio Her A1c was pretty good at 7.3%. It did go up a little bit from last time. Check ACR. She did not tolerate the Jardiance in the past. Consider Farxiga but cost is an issue. Jardiance was also very expensive for her. Chronic gout of ankle, unspecified cause, unspecified laterality She continues to have intermittent flare-ups of gout. I am going to increase her allopurinol to 300mg daily. I will give her colchicine to have on hand in case she has a flare-up. Did suggest checking an x-ray to make sure there is nothing more going on but declined. Class 3 severe obesity due to excess calories with serious comorbidity and body mass index (BMI) of40.0 to 44.9 in adult ([facility]) She is obese. She would benefit from weight loss. Patient noted to have elevated BMI and the following intervention(s) were applied: encouragement toexercise and prescribed diet education. Need for immunization against influenza - Cancel: Influenza, Trivalent, Adjuvanted Recommended flu vaccine but we did not have any available today to get. She will go to the pharmacyand get it. Other orders - allopurinoL (ZYLOPRIM) 300 mg tablet; Take 1 tablet (300 mg total) by mouth in the morning. - colchicine (COLCRYS) 0.6 mg tablet; Take 1 tablet (0.6 mg total) by mouth in the morning and 1 tablet (0.6 mg total) before bedtime. Do all this for 10 days. documented in this encounter Plan of Treatment DateTypeDepartmentCare Team (Latest Contact Info)Adoixkwqsxe95/10/2026 11:00 AM EDTOffice Visit [facility] [address] [place] [address] Wild Stone DO [address], [facility] [place] [address] documented as of this encounter Procedures Procedure NamePriorityDate/TimeAssociated DiagnosisCommentsMICROALBUMIN / CREATININE URINE VDVLVSgesxrj45/10/2025 9:10 AM EST 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 ([facility]) POCT HEMOGLOBIN Q5MDuhakqz56/10/2025 9:03 AM EST 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 ([facility]) documented in this encounter Results * (ABNORMAL) Microalbumin - Albumin: Creatinine Urine Ratio (10/16/2025 9:10 AM EST)ComponentValueRef RangeTest MethodAnalysis TimePerformed AtPathologist SignatureURINE CREATININE,TYI923.75mg/dL10/16/2025 7:34 PM [facility] LAB[facility]ATORYMALB/CREAT RATIO36.0(H)0.0 - 30.0 mg/g12 7:34 PM [facility] LABORATORYMICROALBUMIN, URINE5.6(H)0.0 - 1.9 mg/dL 10/16/2025 7:34 PM [facility] LABORATORYSpecimen (Source) Anatomical Location / LateralityCollection Method / VolumeCollection Time Received TimeUrineUrine specimen collection, clean catch / Tpqlbik3210/16/2025 9:10 AM EST10/16/2025 9:10 AM EST Narrative Authorizing ProviderResult TypeResult StatusDenlewis G Furlong DOURINE ORDERABLES Final ResultPerforming OrganizationAddressCity/State/ZIP CodePhone Number [facility] [address] [place] [id number], * (ABNORMAL) POCT Hemoglobin A1c (10/16/2025 9:03 AM EST)ComponentValueRef Range Test MethodAnalysis TimePerformed AtPathologist SignatureExternal Poct Hgb A1C 7.3(A)4 - 7 %MANUALLY TRANSCRIBED RESULTSSpecimen (Source)Anatomical Location / LateralityCollection Method / VolumeCollection TimeReceived TimeBlood 10/16/2025 9:03 AM EST Narrative Authorizing ProviderResult TypeResult StatusDennis G Furlong DOPOINT OF CARE TEST ORDERABLESFinal ResultPerforming OrganizationAddressCity/State/ZIP Code Phone Number MANUALLY TRANSCRIBED RESULTS documented in this encounter Visit Diagnoses Diagnosis 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 ([facility])- Primary Chronic gout of ankle, unspecified cause, unspecified laterality Class 3 severe obesity due to excess calories with serious comorbidity and body mass index (BMI) of40.0 to 44.9 in adult ([facility]) Need for immunization against influenza Need for prophylactic vaccination and inoculation against influenza documented in this encounter Additional Health Concerns AssessmentNoted TimePHQ-9 Depression Total Score: 8:20 AM ESTA Body Mass Index follow-up plan has been documented for the nsclyta4710/16/2025 4:39 PM ESTdocumented as of this encounter Care Teams Team MemberRelationshipSpecialtyStart DateEnd Date Wild Stone DO [address] [facility], [place] [address] PCP - GeneralFamily Medicine11/30/17documented as of this encounter
--- OUTSIDE RECORDS SUMMARY | 2025-10-24 13:40 | XMS_ITS | Encounter Summary ---
Author Organization [facility] Address [address] [place] [address] Care Team Providers Care Fuel Oil Clerk Name Role Phone Wild Stone DO Primary Care Provider [phone] Reason for Visit * ReasonCommentsPost-CathCongestive Heart FailureHypertensionHyperlipidemia Shortness of BreathSays her SOB is much better. No LE edema lately. Just getting over a sinus infection and is feelingmuch better. 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 (Primary Dx) Social History Tobacco UseTypesPacks/DayYears UsedDateSmoking Tobacco: NeverSmokeless Tobacco: NeverAlcohol UseStandard Drinks/WeekCommentsNever0 (1 standard drink = 0.6 oz pure alcohol)[place] Safety & EnvironmentAnswerDate RecordedFear of Current or Ex-PartnerNot on file12/29/2023Emotionally AbusedNot on file12/29/2023hysically AbusedNot on file12/29/2023Sexually AbusedNot on file12/29/2023hysically or Sexually AbusedNot on file12/29/2023CommentsUnknownSex and Gender InformationValueDate RecordedSex Assigned at PhsvyUemzig13/05/2025 11:02 AM EDT Legal WdzRhdgyr35/30/2022 12:43 AM EDTGender RzhrhkjgXpecuk42/05/2025 11:02 AM EDTSexual OrientationHeterosexual or Aaqtpuob69/05/2025 11:02 AM EDTdocumented as of this encounter Last Filed Vital Signs Vital SignReadingTime TakenCommentsBlood Ybkgrapt352/5810/24/2025 1:40 PM EST Hmcwp759110/24/2025 1:40 PM ESTTemperature--Respiratory Rate--Oxygen Cuuwmqqapw43% 10/24/2025 1:40 PM ESTInhaled Oxygen Concentration--Vjnren79.6 kg (213 lb) 10/24/2025 1:40 PM IOZCopaht910.4 cm (5')10/24/2025 1:40 PM ESTBody Mass Index 41.6112/25/2024 1:40 PM ESTdocumented in this encounter Plan of Treatment NameTypePriorityAssociated DiagnosesOrder ScheduleBasic metabolic panelLab Routine 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
--- OUTSIDE RECORDS SUMMARY | 2025-10-25 10:12 | XMS_ITS | Encounter Summary ---
Author Organization [facility] tem Address [facility] [id number] [address] [place] [address] Care Team Providers Care Lumber Chain Offbearer Name Role Phone Wild Stone DO Primary Care Provider [phone] Encounter Details DateTypeDepartmentCare Team (Latest Contact Info)Whxytwkhizu75/11/2025Results Follow-Up [facility] - Family Medicine [address] [place] [address] Wild Stone DO [address], [place] [address] POCT Hemoglobin A1c, Microalbumin - Albumin: Creatinine Urine Ratio Social History Tobacco UseTypesPacks/DayYears UsedDateSmoking Tobacco: NeverSmokeless Tobacco: NeverAlcohol UseStandard Drinks/WeekCommentsNot Currently0 (1 standard drink = 0.6 oz pure alcohol)Social Connection and Isolation PanelAnswerDate RecordedIn a typical week, how many times do you talk on the phone with family, friends, or neighbors?More than three times a week03/10/2023How often do you get together with friends or relatives?Once a week03/10/2023How often do you attend congregational or caodaism services?Never03/10/2023o you belong to any clubs or organizations such as congregational groups, unions, fraternal or athletic groups, or school groups? Yes03/10/2023How often do you attend meetings of the clubs or organizations you belong to?Never03/10/2023re you , , , , never , or living with a partner?Vdlwhdr6803/10/2023Overall Financial Resource Strain (CARDIA)AnswerDate RecordedHow hard is it for you to pay for the very basics like food, housing, medical care, and heating?Not hard at all03/19/2024 PHQ-2AnswerDate RecordedTotal Wvtoi57012/17/2024[facility] [place] of Occupational Health - Occupational Stress QuestionnaireAnswerDate [...] of a household? No03/19/2024hildcareAnswerDate RecordedDo problems getting child support case officer make it difficult for you to work [...] True10/16/2025Purpose - LifeAnswerDate RecordedPurpose and direction in kxcrSaxqauh58/11/2021CommentsNoSex and Gender InformationValueDate RecordedSex Assigned at BirthNot on fileLegal Sex Pwhiwt8806/12/2015 11:42 AM EDTGender IdentityNot on fileSexual OrientationNot on filedocumented as of this encounter Plan of Treatment DateTypeDepartmentCare Team (Latest Contact Info)Pnzgdduhpsr95/10/2026 11:00 AM EDTOffice Visit [facility] [address] [place] [address] Wild Stone DO [address] [facility] [place] [address] documented as of this encounter Visit Diagnoses Not on filedocumented in this encounter Additional Health Concerns AssessmentNoted TimePHQ-9 Depression Total Score: 8:20 AM ESTA Body Mass Index follow-up plan has been documented for the jbmsdgj6110/16/2025 4:39 PM ESTdocumented as of this encounter Care Teams Team MemberRelationshipSpecialtyStart DateEnd Date Wild Stone DO [address] [facility] [place] [address] PCP - GeneralFamily Medicine11/30/17documented as of this encounter
--- OUTSIDE RECORDS SUMMARY | 2025-10-25 10:12 | XMS_ITS | Encounter Summary ---
Author Organization [facility] tem Address [facility]-[id number] [address] [place] [address] Care Team Providers Care Diesel Engine Mechanic Name Role Phone Wild Stone DO Primary Care Provider [phone] Reason for Visit * ReasonCommentsMed Refill Encounter Details DateTypeDepartmentCare Team (Latest Contact Info)Skxxrbmiqso55/15/2025Refill [facility] Internal Medicine - Family Medicine [address] [place] [address] Wild Stone DO [address] [place] [address] Type 2 diabetes mellitus with stage 2 chronic kidney disease, with long-term current use of insulin([facility]) Social History Tobacco UseTypesPacks/DayYears UsedDateSmoking Tobacco: NeverSmokeless Tobacco: NeverAlcohol UseStandard Drinks/WeekCommentsNot Currently0 (1 standard drink = 0.6 oz pure alcohol)Social Connection and Isolation PanelAnswerDate RecordedIn a typical week, how many times do you talk on the phone with family, friends, or neighbors?More than three times a week03/10/2023How often do you get together with friends or relatives?Once a week03/10/2023How often do you attend jain or yazdanism services?Never3Do you belong to any clubs or organizations such as jain groups, unions, fraternal or athletic groups, or school groups? Yes03/10/2023How often do you attend meetings of the clubs or organizations you belong to?Never03/10/2023re you , , , , never , or living with a partner?Wxuctko4303/10/2023Overall Financial Resource Strain (CARDIA)AnswerDate RecordedHow hard is it for you to pay for the very basics like food, housing, medical care, and heating?Not hard at all03/19/2024 PHQ-2AnswerDate RecordedTotal Cyoxn86112/17/2024Fin[facility] [place] of Occupational Health - Occupational Stress QuestionnaireAnswerDate [...] of a household? No03/19/2024hildcareAnswerDate RecordedDo problems getting early childhood education coordinator make it difficult for you to work [...] True10/16/2025Purpose - LifeAnswerDate RecordedPurpose and direction in emzfSlggnsn30/11/2021CommentsNoSex and Gender InformationValueDate RecordedSex Assigned at BirthNot on fileLegal Sex Lfbshw6506/12/2015 11:42 AM EDTGender IdentityNot on fileSexual OrientationNot on filedocumented as of this encounter Plan of Treatment DateTypeDepartmentCare Team (Latest Contact Info)Vcqphxljogj31/10/2026 11:00 AM EDTOffice Visit [facility] [address] [place] [address] Wild Stone DO [address], [facility] [place] [address] documented as of this encounter Visit Diagnoses Diagnosis Type 2 diabetes mellitus with stage 2 chronic kidney disease, with long-term current use of insulin([facility]) documented in this encounter Additional Health Concerns AssessmentNoted TimePHQ-9 Depression Total Score: 8:20 AM ESTA Body Mass Index follow-up plan has been documented for the myoariu1010/16/2025 4:39 PM ESTdocumented as of this encounter Care Teams Team MemberRelationshipSpecialtyStart DateEnd Date Wild Stone DO [address], [facility] [place] [address] PCP - GeneralFamily Medicine11/30/17documented as of this encounter
--- OUTSIDE RECORDS SUMMARY | 2025-10-25 10:12 | XMS_ITS | Encounter Summary ---
Author Organization [employer] [facility] tem Address [facility]-[id number] [address] [place] [address] Care Team Providers Care Inside Sales Trainer Name Role Phone HelderWild arzate Jailene VIRAMONTES Primary Care Provider [phone] Encounter Details DateTypeDepartmentCare Team (Latest Contact Info)Zomyocthcit06/10/2025Travel Social History Tobacco UseTypesPacks/DayYears UsedDateSmoking Tobacco: NeverSmokeless [...] week03/10/2023How often do you attend anabaptist or mu-ism services?Never03/10/2023o you belong to any clubs or organizations such as anabaptist groups, unions, fraternal or athletic groups, or school groups? Yes03/10/2023How often do you attend meetings of the clubs or organizations you belong to?Never03/10/2023re you , , , , never , or living with a partner?Auntkvk4903/10/2023Overall Financial Resource Strain (CARDIA)AnswerDate RecordedHow hard is it for you to pay for the very basics like food, housing, medical care, and heating?Not hard at all03/19/2024 PHQ-2AnswerDate RecordedTotal Nwcja64212/17/2024Fin[facility] [place] of Occupational Health - Occupational Stress QuestionnaireAnswerDate [...] a household? No03/19/2024hildcareAnswerDate RecordedDo problems getting child welfare specialist make it difficult for you to work [...] True10/16/2025Purpose - LifeAnswerDate RecordedPurpose and direction in vwwrMnpadvk32/11/2021CommentsNoSex and Gender InformationValueDate RecordedSex Assigned at BirthNot on fileLegal Sex Xrqvvk7806/12/2015 11:42 AM EDTGender IdentityNot on fileSexual OrientationNot on filedocumented as of this encounter Plan of Treatment DateTypeDepartmentCare Team (Latest Contact Info)Jyuzcflerah88/10/2026 11:00 AM EDTOffice Visit [facility] [address] [place] [address] Widl Stone DO [address], [facility] [place] [address] documented as of this encounter Visit Diagnoses Not on filedocumented in this encounter Additional Health Concerns AssessmentNoted TimePHQ-9 Depression Total Score: 8:20 AM ESTA Body Mass Index follow-up plan has been documented for the omffzra8110/16/2025 4:39 PM ESTdocumented as of this encounter Care Teams Team MemberRelationshipSpecialtyStart DateEnd Date Wild Stone DO [address], [facility] [place] [address] PCP - GeneralFamily Medicine11/30/17documented as of this encounter
--- OUTSIDE RECORDS SUMMARY | 2025-10-25 10:13 | XMS_ITS | Clinical Summary ---
Author Organization [facility] Address [address] [place] [address] Care Team Providers Care Box Stapler Name Role Phone Unallocated, Noms Provider Primary Care [facility] Family History Medical HistoryRelationNameCommentsCancerFatherHeart diseaseFatherCancerMaternal GrandmotherStrokeMotherRelationNameStatusCommentsFatherMaternal Grandmother Mother Social History Tobacco UseTypesPacks/DayYears UsedDateSmoking Tobacco: NeverSmokeless Tobacco: Never Tobacco Cessation:Counseling Given: Not Answered Alcohol UseStandard Drinks/WeekCommentsNot Currently0 (1 standard drink = 0.6 oz pure alcohol)Caffeine: 1-2 cups/dayCommentsUnknownSex and Gender InformationValueDate RecordedSex Assigned at BirthNot on fileLegal SexFemale 09/26/2023 10:07 AM ESTGender IdentityNot on fileSexual OrientationNot on file Last Filed Vital Signs Vital SignReadingTime TakenCommentsBlood Dfzcwycs526/7711 12:00 PM EST Pulse--Temperature--Respiratory Rate--Oxygen Saturation--Inhaled Oxygen Concentration--Upsann73 kg (205 lb)09/16/2020 12:00 PM ITUTznyno696.9 cm (5' 1 ) 09/16/2020 12:00 PM ESTBody Mass Index38.7309/16/2020 12:00 PM EST Plan of Treatment Health MaintenanceDue DateLast DoneCommentsCT Wcecuqsbetzp03/05/1951Colonoscopy 1950Diabetes: Hemoglobin A1C1949FIT1949FOBT1949 Adatoauewyydz05/05/1950Diabetes: Retinopathy Awslkphsz43/05/1960Medicare Annual Wellness (AWV)/3Diabetes: Urine Protein Jdroetkbp36/08/2024 3COVID-19 Vaccine ( season)/, 01/22/2021, 01/01/2021Influenza Vaccine (#1), 10/08/2022, 10/12/2020, Additional history existsColorectal Cancer Zkmrcvasi74/19/2026FIT-DNA03/25/2026 03/25/2023, 11/10/2018Pneumococcal Vaccine: 65+ LylrbXxwgpqagj13/18/2017, 08/05/20163614GmtfqulvqTgryqpvnvgzk69/07/2023, 04/26/2022, 04/24/2021, Additional history exists Insurance * Guarantor: Juwan Macias TypeRelation to PatientDate of BirthPhone Billing AddressPersonal/FmuehlCize65/05/1951 [facility] [address] Care Teams Team MemberRelationshipSpecialtyStart DateEnd Date Unallocated, Noms MD [address] [place] [address] [facility]12/06/23
--- OUTSIDE RECORDS SUMMARY | 2025-10-25 10:13 | XMS_ITS | Clinical Summary ---
Author Organization [facility] Address [address] [place] [address] Phone Care Team Providers Care Geophysical Operator Name Role Phone Wild Stone DO Primary Care Provider [phone] Social History Tobacco UseTypesPacks/DayYears UsedDateSmoking Tobacco: Never Assessed CommentsUnknownSex and Gender InformationValueDate RecordedSex Assigned at Not on fileLegal IcwHlurdj20/26/2022 8:41 PM ESTGender IdentityNot on fileSexual OrientationNot on file Last Filed Vital Signs Vital SignReadingTime TakenCommentsBlood Pyrmawdn128/57011/28/2020 9:26 AM EST Rxvrq4066 9:26 AM WVMKkjsodzjuna35.4 ??C (97.5 ??F)11/28/2020 9:26 AM ESTRespiratory Woth072811/28/2020 9:26 AM ESTOxygen Saturation--Inhaled Oxygen Concentration--Lwhwml43.2 kg (207 lb 10.8 oz)11/28/2020 7:55 AM ASRIsfprs642.4 cm (5')11/28/2020 7:55 AM ESTBody Mass Index40.56011/28/2020 7:55 AM EST Plan of Treatment Not on file Care Teams Team MemberRelationshipSpecialtyStart DateEnd Date Wild Stone DO PCP - General11/07/20
--- OUTSIDE RECORDS SUMMARY | 2025-10-25 10:13 | XMS_ITS | Clinical Summary ---
Author Organization [facility] Address [address] [place] [address] Care Team Providers Care Journeyman Pipefitter Name Role Phone Wild Stone DO Primary Care Provider [phone] Allergies Active AllergyReactionsCriticalityNoted LikhBuqhhqwmHjxenivokkLapoq14/20/2025 Possible leg swelling LibgmshyxjnlrEqblYgbipw34/12/3323HyhrxvnsoifduaOvivm24/20/2025 Hyperkalemia Medications MedicationSigDispense QuantityRefillsLast FilledStart DateEnd DateStatus aspirin 81 mg chewable tablet in the [...] START after FLARE UP RESOLVES ) 12/23/2023ctive Tresiba FlexTouch U-100 100 unit/mL (3 mL) injection 50 Units in the morning. Patient takes 50 units dailyActive furosemide (Lasix) 40 mg tablet Indications:Edema, unspecified typeTake 1 tablet (40 mg) by mouth in the morning./ctive insulin aspart (NovoLOG) 100 unit/mL (3 mL) injection pen Inject 6 Units under the skin with breakfast, with lunch, with evening meal, and at bedtime.5Active pantoprazole (ProtoNix) 40 mg EC tablet Take 40 mg by mouth before breakfast and before evening meal.04/05/2025tive eplerenone (Inspra) 25 mg tablet Indications:Diastolic dysfunction,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 (CMS/HCC)Take 1 tablet (25 mg) by mouth in the morning. 30 tablet 5Active insulin NPH and regular human (NovoLIN 70-30 FlexPen U-100) 100 unit/mL (70-30) injection Novolin 70-30 FlexPen U-7677510/24/2025Discontinued ergocalciferol (Vitamin D-2) 1.25 MG (03565 Units) capsule Take 1 capsule by mouth 1 (one) time per week.Discontinued cholestyramine (Questran) 4 gram packet Take 1 packet by mouth with breakfast and with evening meal. Discontinued Active Problems ProblemNoted DateDiagnosed DateAbnormal cardiovascular stress test08/29/2025 Assessment & Plan (10/02/2025 9:31 AM EST): FINLEY (dyspnea on exertion)08/29/2025 Assessment & Plan (10/02/2025 9:31 AM EST): Left wrist pain06/27/2025Presence of left artificial knee joint06/27/2025rm /20/2025arpal tunnel /20/0505Kpxz25/20/2025History of kidney clwiro6203/26/20256457Jrmsowphnwzjatvhjrtep27/20/3695Pxlbtlxgvzwh90/20/2025 Pilonidal cyst03/26/2025OSA (obstructive sleep apnea)03/10/2025telectasis kofmlcgrh82/04/2025Pulmonary ziazgsommt85/04/2025KI (acute kidney injury) 03/09/20254995Predgjfpnik80/03/2025Lactic tteqaahj75/03/2025Troponin level elevated 5Acute onhndgvtheiqc94/27/2025Encounter for antineoplastic zsytkflubkmzl62Enlarged pituitary gland Rupture of operation woundS/P total knee replacement using cement, left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 to type 2 diabetes cnzklvem14 Assessment & Plan (05/18/2024 12:22 PM EDT): Hypertension is unchanged. States b/p at home is always < 130/80 Continue current medications. Blood pressure will be reassessed at the next regular appointment. Osteoarthritis of kneeost-traumatic osteoarthritis of left wristNonalcoholic fatty liver kijgimn56 Dyspnea on tcuykklq12 Assessment & Plan (05/18/2024 12:23 PM EDT): Fluid overloaded on exam today will increased lasix x next 2-3 days Assessment & Plan (12/02/2023 7:53 PM EST): FINLEY and BLE edema will order echocardiogram to assess cardiac function, diastolic function and valvular function RTC after echo completed Essential fgzgoxnumgps00/18/202207/09/2023 Assessment & Plan (05/18/2024 12:22 PM EDT): Hypertension is stable Assessment & Plan (12/02/2023 7:51 PM EST): Hypertension is controlled and hypotensive despite not taking lisinopril 40 mg the last 2 days. Asked pt to stop norvasc and to hold lisinopril if SBP < 100 and she voiced understanding Metabolic syndrome X/09/2023Mixed hvplmzebcdmdxp29 Assessment & Plan (05/18/2024 12:21 PM EDT): Lipid abnormalities are unchanged. Pharmacotherapy as ordered. Continue crestor Assessment & Plan (12/02/2023 7:50 PM EST): Continue crestor 10 mg daily Morbid uhwupfl50/3Diastolic amnflkcgusa48/26/202207/09/2023 Assessment & Plan (05/18/2024 12:24 PM EDT): [...] mg daily, stop norvasc, repeat echocardiogram Malignant lgdccxuq61rthritisegeneration of thoracic intervertebral discIrritable bowel syndrome Type 2 diabetes aicwndkd01 Encounters DateTypeDepartmentCare LelsMkknpqxlbxo20/18/2025 1:40 PM ESTFollow-Up [facility] [place] [address] [place] [address] Iza Roman CNP Coronary artery disease involving hamilton coronary artery of hamilton heart without angina pectoris (Primary Dx)10/02/2025 11:40 AM EST - 10/02/2025 12:40 PM EST Surgery [facility] V[facility] [address] [place] [phone] Tiburcio Montalvo MD coronary hpfhfvpwmiq97/26/2025 8:07 AM EST - 10/02/2025 3:46 PM ESTHospital Encounter [facility] Vascular Lab [address] [place] [address] Tiburcio Montalvo MD Diastolic dysfunction (Primary Dx); Abnormal cardiovascular stress test; FINLEY (dyspnea on exertion); 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 (CMS/HCC) Discharge Disposition: Home or Self Care (01)10/02/20256892Plcnsp02/20/2025Travel 08/29/2025Orders Only [address] [phone] Melida Booth [place] Abnormal cardiovascular stress test (Primary Dx); FINLEY (dyspnea on exertion)08/27/2025Results Follow-Up [address] [phone] Iza Roman CNP Lexiscan Stress Myocardial Perfusion Foclkzq1708/23/2025Orders Only [address] [phone] ProviderSunil MD from Last 3 Months Family History Medical HistoryRelationNameCommentsCoronary artery diseaseFatherHeart attack FatherRelationNameStatusCommentsFatherDeceasedMotherDeceasedSisterAlive Social History Tobacco UseTypesPacks/DayYears UsedDateSmoking Tobacco: NeverSmokeless Tobacco: NeverAlcohol UseStandard Drinks/WeekCommentsNever0 (1 standard drink = 0.6 oz pure alcohol)UT Safety & EnvironmentAnswerDate RecordedFear of Current or Ex-PartnerNot on file12/29/2023Emotionally AbusedNot on 12/29/2023hysically AbusedNot on 12/29/2023Sexually AbusedNot on 12/29/2023hysically or Sexually AbusedNot on 12/29/2023CommentsUnknownSex and Gender InformationValueDate RecordedSex Assigned at WesykSlvmgd55/05/2025 11:02 AM EDT Legal PxsPorggn51/30/2022 12:43 AM EDTGender IpdoelboIamsua91/03/2025 11:02 AM EDTSexual OrientationHeterosexual or Ztqsnunt64/05/2025 11:02 AM EDT Last Filed Vital Signs Vital SignReadingTime TakenCommentsBlood Stycmrvh219/5810/24/2025 1:40 PM EST Qxrml119810/24/2025 1:40 PM ESTTemperature--Respiratory Guej675012/02/2024 3:30 PM ESTOxygen Xclxuyplau08%10/24/2025 1:40 PM ESTInhaled Oxygen Concentration-- Hockiw52.6 kg (213 lb)10/24/2025 1:40 PM SAJFaqyok817.4 cm (5')10/24/2025 1:40 PM ESTBody Mass Index41.6112/25/2024 1:40 PM EST Plan of Treatment Health MaintenanceDue DateLast DoneCommentsCT Fbyxhbauqsob30/05/1951Colonoscopy 1950Diabetes: Hemoglobin A1C1949FOBT1949Medicare Annual Wellness (AWV)1950 2841Kiqzqrmuxesay29/05/1950Diabetes: Retinopathy Screening 1959Depression Xiafjxdxy65/05/1962Zoster Vaccines (1 of 2)03/09/2013 01/12/2013Fall Risk Bfyorjnmw77/05/2015dult Qtaytvm40FIT /3COVID-19 Vaccine ( season)/, 01/22/2021, 01/01/2021Influenza Vaccine (#1)/08/2024, 09/12/2023, 10/08/2022, Additional history existsColorectal Cancer Pphqrxkea05/19/2026 FIT-DNA, 11/10/2018Pneumococcal Vaccine: 50+ YearsCompleted 10/24/2017, 08/05/20163853YodjsaihlLhmsavypoiga70/01/2024, 05/13/2023HIB Vaccines Aged OutNo longer eligible based [...] to complete this topic Procedures Procedure NamePriorityDate/TimeAssociated DiagnosisCommentsRIGHT HEART CATH Lgasvva3010/02/2025 12:53 PM EST Abnormal cardiovascular stress test FINLEY (dyspnea on exertion) CORONARY HTDBBSKAVIPWafmzuu23/26/2025 12:53 PM EST Abnormal cardiovascular stress test FINLEY (dyspnea on exertion) %IVH8Rklmlnf66/26/2025 12:34 PM EST ECG 12-RQFMCkidftl62/26/2025 9:20 AM EST LEXISCAN STRESS MYOCARDIAL PERFUSION ZDOUPMUZzlzyfs06/14/2025 8:31 AM EDT from Last 3 Months Results * CORONARY ANGIOGRAPHY, RIGHT HEART CATH (10/02/2025 12:53 PM EST)Anatomical RegionLateralityModalityOtherSpecimen (Source)Anatomical Location / Laterality Collection Method / VolumeCollection TimeReceived Time Narrative 10/02/2025 1:10 PM EST PROCEDURE PHYSICIAN: Tiburcio Montalvo MD Clinical Presentation: 74 y.o. Female presents with a history of shortness of breath, swelling and an abnormal stress test Final Impression: 1) The left anterior descending coronary artery has tandom 40 and 50% mid vessel stenoses, otherwise there are no significant stenoses 2) Left heart failure with a mean wedge pressure of 22 mmHg with moderate pulmonary hypertension Recommendations: 1) ??Medical therapy for CAD until chest pain is lifestyle limiting 2) Add eplerenone 25 mg daily for diastolic heart failure. ??Consider Jardiance after one month if symptoms of swelling and shortness of breath continue Procedures Performed: right heart catheterization, coronary angiography, Pconscious sedation, ultrasound guidance for vascular access Procedure Description: The patient was brought to the cardiac catheterization lab in a fasting state. ??Informed written consent was obtained. ??she was prepped and draped in usual sterile fashion. ??Time-out was performed. ??she was given Versed and fentanyl for sedation. ?? 1% lidocaine was infiltrated over the right neck and L radial artery. ??A 6-Zambian sheath was placed in right internal jugular and left radial artery. ?? Right heart catheterization was performed with a 6 Fr Munoz catheter. Coronary angiography was performed with a JL4and a JR4. At this time, it was apparent that the LAD had a moderate stenosis After completion of the procedure all catheters and wires were removed. ?? The right neck and left radial sheath were removed and a TR band was applied to obtain hemostasis. Specimens Removed: None Complications: None Hemodynamic Data: ?? RA: 7/5/4 mmHg RV: 60/12 mmHg PA: 60/17/33 mmHg PCWP: 26/28/22 mmHg CO: 4.72 L/min CI: 2.48 L/min/m2 O2 Sat: PA sat: 60% AO sat: 89% Coronary Angiogram: Left main: Normal LAD: There are tandem 40 and 50% stenoses in the mid vessel with excellent flow LCX: Dominant and free of stenosis RCA: Non dominant and free of stenosis Study Details Abnormal cardiovascular stress test [R94.39]FINLEY (dyspnea on exertion) [R06.09] Authorizing ProviderResult TypeResult StatusMelfredy Roman CNPCV CARDIAC CATH PROCEDURESFinal Result * (ABNORMAL) %HbO2 (10/02/2025 12:34 PM EST)ComponentValueRef RangeTest Method Analysis TimePerformed AtPathologist CkxuljnmyE4Iy%60.1(L)90.0 - 95.0 % 10/02/2025 12:34 PM ESTNEW [facility] ([place])Specimen (Source)Anatomical Location / LateralityCollection Method / VolumeCollection TimeReceived Time BloodVenous blood specimen / Qzgohnn9310/02/2025 12:34 PM EST10/02/2025 12:34 PM EST Narrative Authorizing ProviderResult TypeResult StatusChrismishel REESE POINT OF CARE TEST DOCKED DEVICE UNSOLICITED RESULTSFinal ResultPerforming Organization AddressCity/State/ZIP CodePhone Number [facility] [address] [place] [address] * Electrocardiogram, 12-lead (10/02/2025 9:20 AM EST)ComponentValueRef RangeTest MethodAnalysis TimePerformed AtPathologist SignatureVentricular Gjco47PGSPT MUSEAtrial Rcls80EITUV MUSEPR Tlhwfwcf001xcJW MUSEQRS BYDGFFBF43ogTC MUSEQT Bezidjxp126cmFY MUSEQTC CALCULATION(BAZETT)280msGE MUSEP Jyqy67kadedwzSW MUSE J-Kekl-16hykylkxUD MUSET Wave Zsqm716ftvzfytKD MUSESpecimen (Source)Anatomical Location / LateralityCollection Method / VolumeCollection TimeReceived Time 10/02/2025 9:12 AM EST10/02/2025 10:18 AM EST Impressions GE MUSE - 10/02/2025 10:18 AM EST Sinus bradycardia with 1st degree A-V block Nonspecific T wave abnormality Abnormal ECG No previous ECGs available Confirmed by MD JULEE, EDEL ([id number]) on 10/02/2025 10:18:42 AM Narrative Procedure Note Edel Negrete MD - 10/02/2025 IMPRESSION: Sinus bradycardia with 1st degree A-V block Nonspecific T wave abnormality Abnormal ECG No previous ECGs available Confirmed by MD JULEE, EDEL ([id number]) on 10/02/2025 10:18:42 AM Authorizing ProviderResult TypeResult StatusChristopher Selvin JUAREZEC ORDERABLES Final ResultPerforming OrganizationAddressCity/State/ZIP CodePhone Number GE MUSE * Lexiscan Stress Myocardial Perfusion Imaging (08/20/2025 8:31 AM EDT) Anatomical RegionLateralityModalityOther Narrative Authorizing ProviderResult TypeResult StatusHistorical Provider MDCV STRESS PROCEDURESFinal Result from Last 3 Months Insurance * Guarantor: Tosha Macias TypeRelation to PatientDate of BirthPhone Billing AddressPersonal/YbjrekHwld60/05/1951 [facility] [address] Care Teams Team MemberRelationshipSpecialtyStart DateEnd Date Wild Stone DO PCP - General12/03/22
--- OUTSIDE RECORDS SUMMARY | 2025-10-25 10:13 | XMS_ITS ---
Author Organization [facility] Address [address] [place] [address] Care Team Providers Care Slitting Machine Feeder Name Role Phone Wild Stone DO Primary Care Provider Active Problems ProblemNoted DateDiagnosed DateAbnormal cardiovascular stress test08/29/2025 Assessment & Plan (10/02/2025 9:31 AM EST): FINLEY (dyspnea on exertion)08/29/2025 Assessment & Plan (10/02/2025 9:31 AM EST): Left wrist pain06/27/2025Presence of left artificial knee joint06/27/2025rm nyjjdjlf58/20/2025arpal tunnel xcmmjwiy77/20/7371Ftjw58/20/2025History of kidney fxwakn6803/26/20252149Zboohfybxzwtdxgzjshjh03/20/3117Txmmwwiabhkq47/20/2025 Pilonidal cyst03/26/2025OSA (obstructive sleep apnea)03/10/2025telectasis xybwzlabl74/04/2025Pulmonary nhmlydlshl55/04/2025KI (acute kidney injury) 03/09/20258490Mrurtsrxxse46/03/2025Lactic khlnairp64/03/2025Troponin level elevated 03/05/2025ute cyjjfnzahxedw49/27/2025Encounter for antineoplastic pwewgauhlfyij80Enlarged pituitary gland Rupture of operation wound/S/P total knee replacement using cement, left11/27/133917/26/2024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 to type 2 diabetes ilsrjelu66 Assessment & Plan (05/18/2024 12:22 PM EDT): Hypertension is unchanged. States b/p at home is always < 130/80 Continue current medications. Blood pressure will be reassessed at the next regular appointment. Osteoarthritis of kneeost-traumatic osteoarthritis of left wristNonalcoholic fatty liver qsfnvak34 Dyspnea on knzikmxc86 Assessment & Plan (05/18/2024 12:23 PM EDT): Fluid overloaded on exam today will increased lasix x next 2-3 days Assessment & Plan (12/02/2023 7:53 PM EST): FINLEY and BLE edema will order echocardiogram to assess cardiac function, diastolic function and valvular function RTC after echo completed Essential rgbqftxefqlt55 Assessment & Plan (05/18/2024 12:22 PM EDT): Hypertension is stable Assessment & Plan (12/02/2023 7:51 PM EST): Hypertension is controlled and hypotensive despite not taking lisinopril 40 mg the last 2 days. Asked pt to stop norvasc and to hold lisinopril if SBP < 100 and she voiced understanding Metabolic syndrome XMixed piekiljsfbnsvy12 Assessment & Plan (05/18/2024 12:21 PM EDT): Lipid abnormalities are unchanged. Pharmacotherapy as ordered. Continue crestor Assessment & Plan (12/02/2023 7:50 PM EST): Continue crestor 10 mg daily Morbid tmqflfh37iastolic svmslfucrzj57/26/822337/09/2023 Assessment & Plan (05/18/2024 12:24 PM EDT): [...] mg daily, stop norvasc, repeat echocardiogram Malignant vbfilziq07rthritis10/24/egeneration of thoracic intervertebral discIrritable bowel syndrome 02/03/Type 2 diabetes ssioekzs84 Current Treatment and Therapy Plans No current plan information found. Past Treatment and Therapy Plans No past plan information found. Lifetime Dose Tracking * ChemicalLifetime DoseAutomatic EntryManual EntryFluoro Time2.04 minutes0 minutes2.04 minutesAir Eumri138 mGy0 hCo232 mGyDose Area Snzuxhy05,978 mGy-cm2 0 mGy-cm246,978 mGy-cm2
--- OUTSIDE RECORDS SUMMARY | 2025-10-25 10:13 | XMS_ITS | Clinical Summary ---
Author Organization [facility] Address [id number] [address] [place] [address] Care Team Providers Care Repairer Handtools Name Role Phone Wild Stone Primary Care Provider [phone] Allergies Active AllergyReactionsCriticalityNoted DateCommentsAmlodipineOther (See Comments)03/26/2025 Possible leg swelling SpironolactoneOther (See Comments)03/26/2025 Hyperkalemia Medications MedicationSigDispense QuantityRefillsLast FilledStart DateEnd DateStatus aspirin (ADULT LOW DOSE ASPIRIN) 81 mg Active blood-glucose sensor (DEXCOM G7 SENSOR) device Indications: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 ([facility])1 Unit by miscellaneous route every 10 days. 3 each 3Active magnesium oxide 400 mg magnesium tablet Magnesium 90 tablet ctive furosemide (LASIX) 40 mg tablet Take 1 tablet (40 mg total) by mouth daily.08/20/2024ctive clobetasoL (TEMOVATE) 0.05 % ointment Apply 1 Application topically in the morning and 1 Application before bedtime 15 g 5Active cholestyramine (QUESTRAN) 4 g packet mix 1 packed DIRECTED and take BY MOUTH DAILY 30 packet 5Active suzetrigine (JOURNAVX) 50 mg tablet Indications:Degeneration of intervertebral disc of lumbar region with discogenic back painTake 1 tablet (50 mg total) by mouth every 12 (twelve) hours. 30 tablet 1095Active suzetrigine (JOURNAVX) 50 mg tablet Take 1 [...] 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 (CMS-HCC)Take 1 tablet (25 mg total) by mouth [...] BY MOUTH EVERY MORNING 90 tablet 5Active lisinopriL (PRINIVIL,ZESTRIL) 40 mg tablet Take 1 tablet (40 mg total) by mouth in the morning. 90 tablet 5Active metFORMIN (GLUCOPHAGE) 1000 mg tablet Take 1 tablet (1,000 mg total) by mouth in the morning and 1 tablet (1,000 mg total) in the evening. Take with meals. 180 tablet 5Active carvediloL (COREG) 25 mg tablet Indications: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 (CMS-HCC)Take 1 tablet (25 mg total) by mouth [...] the evening. Takebefore meals. 90 tablet 5Active eplerenone (INSPRA) 25 mg tablet Take 1 tablet (25 mg total) by mouth in the morning./5Active allopurinoL (ZYLOPRIM) 300 mg tablet Take 1 tablet (300 mg total) by mouth in the morning. 90 tablet 5Active insulin degludec (TRESIBA) 100 unit/mL (3 mL) insulin pen Indications:Type 2 diabetes mellitus with stage 2 chronic kidney disease, with long-term current use of insulin([facility])INJECT 50 UNITS SUBCUTANEOUSLY (UNDER THE SKIN) NIGHTLY 45 mL tive colchicine (COLCRYS) 0.6 mg tablet TAKE 1 TABLET BY MOUTH TWICE DAILY IN THE MORNING THEN BEFORE BEDTIME FOR 10 DAYS 10 tablet tive NovoLOG Flexpen U-100 Insulin 100 unit/mL (3 mL) insulin pen INJECT 6 (SIX) UNITS SUBCUTANEOUSLY (UNDER THE SKIN) IN THE MORNING, noon, IN THE EVENING WITH MEALS 15 mL tive insulin degludec (TRESIBA FLEXTOUCH U-100) 100 unit/mL (3 mL) insulin pen Indications:Type 2 diabetes mellitus with stage 2 chronic kidney disease, with long-term current use of insulin([facility])Inject 50 Units under the skin nightly. 45 mL Discontinued insulin aspart U-100 (NovoLOG Flexpen U-100 Insulin) 100 unit/mL (3 mL) insulin pen Inject 8 Units under the skin in the morning and 8 Units at noon and 8 Units in the evening. Injectwith meals.Discontinued allopurinoL (ZYLOPRIM) 100 mg tablet TAKE 1 TABLET BY MOUTH IN THE MORNING 30 tablet 310Discontinued(Dose adjustment) allopurinoL (ZYLOPRIM) 100 mg tablet Take 1 tablet (100 mg total) by mouth in the morning. 30 tablet /08/2025Discontinued(Dose adjustment) fluticasone propionate (FLONASE) 50 mcg/actuation nasal spray Indications:Acute non-recurrent frontal sinusitisAdminister 1 spray into each nostril in the morning for 10 days. 15.8 mL /Expired amoxicillin-pot clavulanate (AUGMENTIN) 875-125 mg per tablet Indications:Acute non-recurrent frontal sinusitisTake 1 tablet by mouth in the morning and 1 tablet before bedtime. Do all this for 7 days. 14 tablet /08/2025Expired colchicine (COLCRYS) 0.6 mg tablet Take 1 tablet (0.6 mg total) by mouth in the morning and 1 tablet (0.6 mg total) before bedtime. Doall this for 10 days. 10 tablet Discontinued Immunization, In Clinic, Indications:Need for immunization against influenzaInject 0.5 mL into the appropriate muscle once for 1 dose. flu vac 65up (PF) 45 MCG(15 MCGX3)/0.5 mL Sign this order to satisfy the OSBOP Positive ID requirements for immunization orders.Discontinued(Error) Active Problems ProblemNoted DateDiagnosed DateDegeneration of intervertebral disc of lumbar region with discogenic back pain07/17/2025Gout04/07/2025Rupture of operation wound12/23/2023S/P total knee replacement using cement, left10/03/2023 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 to type 2 diabetes ykeqckbf33/08/2023Osteoarthritis of knee09/06/2022ost-traumatic osteoarthritis of left wrist09/06/2022Essential ezquosdnnmbz98/29/2022Metabolic syndrome X08/05/2022Morbid ttwforh1904/08/2022Nonalcoholic fatty liver disease 02/16/2022Mixed hphamdqqklxxdx06/18/2022Malignant melanoma of right upper limb, including kpbleean57/15/9891Cwgipuscf05/18/2017Degeneration of thoracic intervertebral disc02/03/2017Irritable bowel tfeusjyd11/30/2017Type 2 diabetes dmpiygun34/28/2016 Resolved Problems ProblemNoted DateDiagnosed DateResolved DateEnlarged pituitary gland12/30/2023 03/21/20257086Ilqthjorhyas45/04//ain in wrist/07/2023 Njpggqzhlepi75/29/320124/31/2022Benign hypertension with chronic kidney disease, stage II04//3Dyspnea on /4Diastolic vkmynzkbdub95Fracture of orbital floor Pzlzbflktxh32 Encounters DateTypeDepartmentCare QzhcRxefcxlfoon60/15/2025Refill [facility] [address] [place] [address] Wild Stone, Type 2 diabetes mellitus with stage 2 chronic kidney disease, with long-term current use of insulin([facility])10/17/2025Results Follow-Up [facility] [address] [place] [address] Wild Stone DO POCT Hemoglobin A1c, Microalbumin - Albumin: Creatinine Urine Ratio10/16/2025 8:30 AM ESTOffice Visit [facility] [address] [place] [address] Wild Stone, 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 ([facility]) (Primary Dx); Chronic gout of ankle, unspecified cause, unspecified laterality; Class 3 severe obesity due to excess calories with serious comorbidity and body mass index (BMI) of40.0 to 44.9 in adult ([facility]); Need for immunization against sxesdnvka87/10/9427Hvvvce42/03/2025 1:30 PM EST [facility] [address] [place] [address] Huy Castro, C.O.D. [employer]PRENTICE Acute non-recurrent frontal sinusitis (Primary Dx)10/09/20254976Njzfkf54/19/2025 Orders Only [facility] [address] [place] [address] Ref Prov, Not In System 08/07/2025Refill [facility] [address] [place] [address] Tressa Campbell CMA 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 ([facility])08/06/2025Refill [facility] [address] [place] [address] Wild Stone DO 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 ([facility])08/01/2025Orders Only [facility] [address] [place] [address] Ref Prov, Not In System 07/30/2025Orders Only [facility] [address] [place] [address] Ref Prov, Not In System 07/29/2025Orders Only [facility] [address] [place] [address] Wild Stone DO 07/29/2025Telephone [facility] [address] [place] [address] Amanda Poole CMA from Last 3 Months Immunizations ImmunizationAdministration DatesNext DueInfluenza (IM) Preservative Free 09/05/2016,09/07/2015Influenza Vaccine, Quadrivalent, Nphfuydhlk29/06/2023 Influenza, High-dose, Gxpbypexgxwv97/02/2022Influenza, Injectable, MDCK, Mamlcfttlryw80/28/2019Influenza, Injectable, Mdck, Preservative Free, Quad 10/24/2017Influenza, Injectable, Krqjpgaqsmdv91/06/2020Influenza, Trivalent, Emzlzhexlc77/10/2024neumococcal Conjugate 13-Ykojfa3608/05/2016Pneumococcal Gehjwmzmqgocsv39/18/2091Mewb81/12/3254Twufhnfdm27/06/2013 Family History Medical HistoryRelationNameCommentsHeart diseaseFatherLeukemiaFatherStroke Maternal GrandfatherStrokeMotherdied at khw06Gx Known ProblemsSisterBreast cancerNeg HxRelationNameStatusCommentsFatherDeceasedMaternal GrandfatherMother DeceasedSisterAlive Social [...] relatives?Once a week03/10/2023How often do you attend alevism or nondenominational services?Never03/10/2023o you belong to any clubs or organizations such as alevism groups, unions, fraternal or athletic groups, or school groups? Yes03/10/2023How often do you attend meetings of the clubs or organizations you belong to?Never03/10/2023re you , , , , never , or living with a partner?Fvriayc5903/10/2023Overall Financial Resource Strain (CARDIA)AnswerDate RecordedHow hard is it for you to pay for the very basics like food, housing, medical care, and heating?Not hard at all03/19/2024 PHQ-2AnswerDate RecordedTotal Owarq07912/17/2024Finbear [facility] [place] of Occupational Health - Occupational Stress QuestionnaireAnswerDate [...] of a household? No03/19/2024hildcareAnswerDate RecordedDo problems getting director of early childhood make it difficult for you to work [...] True10/16/2025Purpose - LifeAnswerDate RecordedPurpose and direction in ettkJdejetk92/11/2021CommentsNoSex and Gender InformationValueDate RecordedSex Assigned at BirthNot on fileLegal Sex Tkxndc8406/12/2015 11:42 AM EDTGender IdentityNot on fileSexual OrientationNot on file Last Filed Vital Signs Vital SignReadingTime TakenCommentsBlood Wnanqbwl066/8810/16/2025 8:19 AM EST Lwlbt290010/16/2025 8:19 AM CQVBukowfpulyk61.3 ??C (97.3 ??F)10/16/2025 8:19 AM ESTRespiratory Wayh880112/17/2024 8:19 AM ESTOxygen Klxnuanxmb55%10/16/2025 8:19 AM ESTInhaled Oxygen Concentration--Nbjprm48.4 kg (210 lb 6.4 oz)10/16/2025 8:19 AM HGVEolpic634.4 cm (5')10/16/2025 8:19 AM ESTBody Mass Index41.0910/16/2025 8:19 AM EST Plan of Treatment DateTypeDepartmentCare Team (Latest Contact Info)Hgawejtcqha28/10/2026 11:00 AM EDTOffice Visit [facility] [address] [address] Wild Stone, DO [address], [place] [address] Health MaintenanceDue DateLast DoneCommentsZoster (Shingles) Vaccine (1 of 2) 03/09/2013RSV ( or age 60+ yrs) (1 - 1-dose 75+ series)2024 Medicare Annual Wellness Visit/, 03/10/2023Influenza Vaccine , 09/12/2023, 10/08/2022, Additional history existsDiabetic Ophthalmology Exam, 09/01/2023, 2DTaP,Tdap and Td Vaccines (2 - Td or Tdap)Postponed from 09/18/2022 (Vaccine Not Available)Colon Cancer Screening 3 Year Ljwxaiyax10, 11/10/2018Depression Tzxmeslui77Fall Risk Qsxzrtfqy51/10/2026 10/16/2025Tobacco Nttaybrgq55OVID-19 VaccineDiscontinued 10/06/2021, 01/22/2021, 01/01/2021 Medical Devices Not on file Procedures Procedure NamePriorityDate/TimeAssociated DiagnosisCommentsMICROALBUMIN / CREATININE URINE GPYWLTlfecbt13/10/2025 9:10 AM EST 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 (CMS-HCC) POCT HEMOGLOBIN I0IQizmhll73/10/2025 9:03 AM EST 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 (CMS-HCC) US, RETROPERITNL ABD, BJPJbnfugc11/17/2025 2:55 PM ESTXR CHEST 1 VWRoutine 08/01/2025 8:50 AM EDTHM DIABETES EYE TPDAIzplbps17/29/2024 9:51 AM EDTCOLOGUARD NON-PJNHUSYQQAqshida24/19/2023 10:00 AM EDT Special screening for malignant neoplasm of colon from Last 3 Months or Most Recently Relevant to Health Maintenance Results * (ABNORMAL) Microalbumin - Albumin: Creatinine Urine Ratio (10/16/2025 9:10 AM EST)ComponentValueRef RangeTest MethodAnalysis TimePerformed AtPathologist SignatureURINE CREATININE,KKR680.75mg/dL10/16/2025 7:34 PM [facility] LAB[facility]ATORYMALB/CREAT RATIO36.0(H)0.0 - 30.0 mg/10/16/2025 7:34 PM [facility] LABORATORYMICROALBUMIN, URINE5.6(H)0.0 - 1.9 mg/dL 10/16/2025 7:34 PM [facility] LABORATORYSpecimen (Source) Anatomical Location / LateralityCollection Method / VolumeCollection Time Received TimeUrineUrine specimen collection, clean catch / Pakqlbl8610/16/2025 9:10 AM EST10/16/2025 9:10 AM EST Narrative Authorizing ProviderResult TypeResult StatusDennis G Furlong DOURINE ORDERABLES Final ResultPerforming OrganizationAddressCity/State/ZIP CodePhone Number [facility] [address] [place] [address], [place] [phone] * (ABNORMAL) POCT Hemoglobin A1c (10/16/2025 9:03 AM EST)ComponentValueRef Range Test MethodAnalysis TimePerformed AtPathologist SignatureExternal Poct Hgb A1C 7.3(A)4 - 7 %MANUALLY TRANSCRIBED RESULTSSpecimen (Source)Anatomical Location / LateralityCollection Method / VolumeCollection TimeReceived TimeBlood 10/16/2025 9:03 AM EST Narrative Authorizing ProviderResult TypeResult StatusDennis G Furlong DOPOINT OF CARE TEST ORDERABLESFinal ResultPerforming OrganizationAddressCity/State/ZIP Code Phone Number MANUALLY TRANSCRIBED RESULTS * , [facility] (09/23/2025 2:55 PM EST) Narrative Authorizing ProviderResult TypeResult StatusNot In System Ref Prov PROCEDURE/MINOR SURGICAL ORDERABLESFinal ResultPerforming OrganizationAddress City/State/ZIP CodePhone Number MANUALLY TRANSCRIBED RESULTS * X-ray chest 1 view (08/01/2025 8:50 AM EDT)Anatomical RegionLateralityModality Body, ChestN/AComputed Radiography Narrative Authorizing ProviderResult TypeResult StatusNot In System Ref ProvIMG DIAGNOSTIC IMAGING ORDERABLESFinal Result * DIABETES EYE EXAM (09/04/2024 9:51 AM EDT) Narrative Authorizing ProviderResult TypeResult StatusNot In System Ref ProvHEALTH MAINTENANCEFinal ResultPerforming OrganizationAddressCity/State/ZIP CodePhone Number MANUALLY TRANSCRIBED RESULTS * Cologuard [facility] (03/25/2023 10:00 AM EDT)ComponentValueRef RangeTest MethodAnalysis TimePerformed AtPathologist SignatureEXTERNAL COLOGUARDNegative Myhoavar33/28/2023 4:50 PM EDTEXACT Tang Song (CLIA #:[id number]) Comment: NEGATIVE TEST RESULT. A negative Cologuard [...] with both Cologuard and colonoscopy. (Karla Suarez. maikel al, N Engl J Med 2014;370(14):0999-9079) The normal value (reference range) for this assay is negative. COLOGUARD RE-SCREENING RECOMMENDATION: Periodic colorectal cancer screening is an important part ofpreventive healthcare for asymptomatic individuals at average risk for colorectal cancer. ??Following a negative Cologuard result, the [place] [employer] and U.S. Multi-Society Task Force screening guidelines recommend a Cologuard re-screening interval of 3 years. References: [place] [employer] Guideline for Colorectal Cancer Screening: https://www.cancer.or g/cancer/tosmo-sbuwse-tlhaxk/igsgxgpbm-adhukacci-tnawaip/acs-recommendations.htm kit; Rober HIGUERA, Carter BEAUCHAMP, Main LewK, Colorectal Cancer Screening: Recommendations for Physicians and Patients from the U.S. Multi-Society Task Force on Colorectal Cancer Screening , Am J Gastroenterology 2017; 112:5836-9023. TEST DESCRIPTION: Composite algorithmic analysis of stool [...] with both Cologuard and colonoscopy. (Karla Suarez. maikel al, N Engl J Med 2014;370(14):1763-4505.) Cologuard may produce a false negative or false positive result (no colorectal cancer or precancerous polyp present at colonoscopy follow up). A negative Cologuard test result does not guarantee the absence of CRC or advanced adenoma (pre-cancer). The current Cologuard screening interval is every 3 years. ([place] [employer] and U.S. Multi-Society Task Force). Cologuard performance data in a 10,000 patient pivotal study using colonoscopy as the reference method can be accessed at the following location: www.TellMi/results. Additional description of the Cologuard test process, warnings and precautions can be found at www.cologSecondMicrd.[employer]. Specimen (Source)Anatomical Location / LateralityCollection Method / Volume Collection TimeReceived TimeStool specimen (specimen)Rectum structure / Unknown 03/25/2023 10:00 AM EDT03/26/2023 1:41 PM EDT Narrative Authorizing ProviderResult TypeResult StatusDennis G Furlong DOLAB ORDERABLES Final ResultPerforming OrganizationAddressCity/State/ZIP CodePhone Number [facility] (CLIA #:[id number]) [address] [place] [address], from Last 3 Months or Most Recently Relevant to Health Maintenance Insurance Care Teams Team MemberRelationsDaniel Freeman Memorial HospitalpecialtyStart DateEnd Date Wild Stone DO [address] [facility], [place] [address] [facility]CP - [facility] Medicine11/30/17
[2025-10-25 11:13] LABS: Anion Gap 7.9; Blood Urea Nitrogen 26.0 mg/dL (7.0-18.0); Calcium 9.6 mg/dL (8.5-10.1); Carbon Dioxide 32.1 mmol/L (21.0-32.0); Chloride 101 mmol/L (98-107); Cholesterol 105 mg/dL (<=200); Estimated GFR (African America 60 (>=60 mL/min/1.73m^2); Estimated GFR (Non-African Ame 49 (>=60 mL/min/1.73m^2); Glucose 97 mg/dL (74-106); HDL Cholesterol 42 mg/dL (40-60); Potassium 4.0 mmol/L (3.5-5.1); Sodium 137 mmol/L (136-145); Triglycerides 165 mg/dL (<=150); VLDL CHOLESTEROL 33.0 mg/dL
== END 2025-10-25 10:08 | disposition home or self-care (01) ==
LOC: LAB 10:09
PROVIDERS: PCP Family Medicine; Visit Provider Nurse Practitioner Family
DX: I25.10 Atherosclerotic heart disease of native coronary artery without angina pectoris (principal)
CPT/HCPCS: 36415; 80048; 80061